=== PATIENT | female | born 1975 | race Hispanic/Latino ===

== ENCOUNTER 2017-12-21 20:06 | Observation (INO) | payer OTHER ==
--- OUTSIDE RECORDS SUMMARY | 2017-12-21 20:09 | XMS REPORT | Clinical Summary ---
:1975 Author Organization [facility] Address [address] [place] [address] Phone Care Team Providers Name Role Phone Unavailable Primary Care Provider Unavailable Allergies No Known Allergies Current Medications Prescription Sig. Disp. Refills Start End Date Status Date PARoxetine (PAXIL) Take 40 mg by Active 40 MG tablet mouth every morning. HYDROcodone-acetam Take 1 tablet by Active inophen (NORCO mouth every 6 7.5-325) 7.5-325 (six) hours as mg per tablet needed for Pain. ALPRAZolam (XANAX) Take 1 mg by mouth Active 1 MG tablet every night as needed for Anxiety. busPIRone (BUSPAR) Take 10 mg by Active 10 MG tablet mouth 3 (three) times daily. esomeprazole Take 40 mg by Active (NEXIUM) 40 MG mouth daily. capsule fenofibrate Take 48 mg by Active (TRICOR) 48 MG mouth daily. tablet levothyroxine Take 150 mcg by Active (SYNTHROID, mouth Every LEVOTHROID) 150 morning on an MCG tablet empty stomach. magnesium oxide Take 400 mg by Active (MAG-OX) 400 mg mouth daily. tablet prednisoLONE 1 drop as needed. Active acetate (PRED FORTE) 1 % ophthalmic suspension multivitamin Take 1 tablet by Active (MULTIVITAMIN) per mouth daily. tablet metoclopramide HCl Take 10 mg by Active (REGLAN) 10 MG mouth 4 (four) tablet times daily as needed for Nausea. erythromycin base Take 250 mg by Active (E-MYCIN) 250 MG mouth every 6 tablet (six) hours as needed. ergocalciferol Take 1 capsule 4 capsule 0 03/20/20 Active (ERGOCALCIFEROL) (50,000 Units 7 18 50,000 unit total) by mouth capsule every 7 days. insulin glargine Inject 50 Units 10 mL 0 Active (LANTUS) 100 subcutaneously 7 unit/mL injection every morning Use as directed . meloxicam (MOBIC) Take 15 mg by 03/20/20 Discontinued 15 MG tablet mouth daily. 17 atorvastatin Take 40 mg by 03/20/20 Discontinued (LIPITOR) 40 MG mouth daily. 17 tablet insulin glargine Inject 03/20/20 Discontinued (LANTUS) 100 subcutaneously 17 unit/mL injection daily before lunch Use as directed . losartan-hydroCHLO Take 1 tablet by 03/20/20 Discontinued ROthiazide mouth daily. 17 (HYZAAR) 50-12.5 mg per tablet ondansetron Take 4 mg by mouth 03/20/20 Discontinued (ZOFRAN) 4 MG every 6 (six) 17 tablet hours as needed for Nausea. potassium chloride Take 8 mEq by 03/20/20 Discontinued (KLOR-CON) 8 MEQ mouth daily. 17 CR tablet minocycline Take 100 mg by 03/20/20 Discontinued (MINOCIN,DYNACIN) mouth 2 (two) 17 100 MG capsule times daily. predniSONE Take 20 mg by 03/20/20 Discontinued (DELTASONE) 20 MG mouth daily. 17 tablet chlorthalidone Take 1 tablet (25 30 tablet 0 04/19/20 (HYGROTON) 25 MG mg total) by mouth 7 17 tablet daily for 30 days. spironolactone Take 1 tablet (25 30 tablet 0 04/19/20 (ALDACTONE) 25 MG mg total) by mouth 7 17 tablet daily for 30 days. aspirin 81 MG Take 1 tablet (81 30 tablet 0 04/19/20 chewable tablet mg total) by mouth 7 17 daily for 30 days. losartan (COZAAR) Take 1 tablet (100 30 tablet 0 04/19/20 100 MG tablet mg total) by mouth 7 17 daily for 30 days. atorvastatin Take 1 tablet (80 30 tablet 0 04/19/20 (LIPITOR) 80 MG mg total) by mouth 7 17 tablet nightly for 30 days. ondansetron Take 1 tablet (8 20 tablet 0 03/27/20 (ZOFRAN-ODT) 8 MG mg total) by mouth 7 17 disintegrating every 6 (six) tablet hours as needed for up to 7 days. loperamide Take 1 capsule (2 30 capsule 0 03/30/20 (IMODIUM) 2 mg mg total) by mouth 7 17 capsule 3 (three) times daily as needed for Diarrhea for up to 10 days. Active Problems Problem Noted Date Proteinuria 03/20/2017 Gastroparesis 03/19/2017 DELMA (acute kidney injury) ([facility]) 03/16/2017 Acute metabolic encephalopathy 03/16/2017 Cerebrovascular accident (CVA) due to embolism of left middle cerebral 2016 artery ([facility]) Hypothyroidism 03/15/2017 Diabetes mellitus ([facility]) 03/15/2017 Depression 03/15/2017 Anxiety 03/15/2017 GERD (gastroesophageal reflux disease) 03/15/2017 COPD (chronic obstructive pulmonary disease) ([facility]) 03/15/2017 Chronic renal disease 03/15/2017 Hyperlipidemia 03/15/2017 History of thyroid cancer 03/15/2017 Blind 03/15/2017 Tobacco abuse 03/15/2017 Diabetic retinopathy ([facility]) 03/15/2017 Diabetic nephropathy ([facility]) 03/15/2017 Resolved Problems Problem Noted Date Resolved Date Aphasia 03/14/2017 03/15/2017 Encounters Date Type Specialty Care Team Description 03/14/2017 - Hospital Encounter [facility] [place] Acute 03/20/2017 Medicine MD Dillon encephalopathy;Edison Adams Rahul ent cerebral MD Yady ischemia, unspecified Alessandro, type;DELMA (acute Albert Giovani, kidney injury) ([facility]);Cerebrovascular 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 ([facility]);Diabetic nephropathy associated with diabetes mellitus due to underlying condition ([facility]);Stable proliferative diabetic retinopathy associated with diabetes mellitus due to underlying condition, unspecified laterality ([facility]) after 12/20/2016 Family History Medical History Relation Name Comments Hypertension Father Diabetes Mother Kidney disease Mother Relation Name Status Comments Father Mother Social History Tobacco Use Types Packs/Day Years Used Date Current Every Day Smoker Sex Assigned at Date Recorded Not on file Last Filed Vital Signs Vital Sign Reading Time Taken Blood Pressure 109/52 03/20/2017 7:30 AM CDT Pulse 83 03/20/2017 7:30 AM CDT Temperature 36.2 C (97.1 F) 03/20/2017 7:30 AM CDT Respiratory Rate 19 03/20/2017 7:30 AM CDT Oxygen Saturation 98% 03/20/2017 7:30 AM CDT Inhaled Oxygen Concentration - - Weight 100 kg (220 lb 7.4 oz) 03/16/2017 6:00 AM CDT Height 162.6 cm (5' 4") 03/14/2017 6:00 PM CDT Body Mass Index 37.84 03/16/2017 6:00 AM CDT Plan of Treatment Not on file Results RHYTHM STRIP - SCAN (03/31/2017 1:10 PM)POC-Glucose meter (03/20/2017 7:22 AM) Only the most recent of17 resultswithin the time period is included. Component Value Ref Range POC-Glucose Meter 200 (H)Comment: TESTED AT [address] 70 - 110 mg/[place] [address] Specimen Performing Laboratory Blood [address] [address] Protein, random urine (03/19/2017 5:39 PM) Component Value Ref Range Protein, Urine 286 (H) 0 - 14 mg/dL Specimen Performing Laboratory Urine - Urine, Voided [address] [address] Creatinine, random urine (03/19/2017 5:39 PM)Only the most recent of2 resultswithin the time period is included. Component Value Ref Range Creatinine, Ur 29.3 mg/dL Specimen Performing Laboratory Urine - Urine, Voided [address] [address] Narrative Reference Range: No Normals ECG 12 lead (03/19/2017 3:16 PM) Specimen Performing Laboratory GE [facility]USE Narrative Ventricular Rate 81 BPM Atrial Rate 81 BPM P-R Interval 126 ms QRS Duration 76 ms Q-T Interval 408 ms QTC Calculation(Bazett) 473 ms P [place] 70 degrees R [place] -6 degrees T [place] 61 degrees Normal sinus rhythm Normal ECG No previous ECGs available Confirmed by MD PRIYA, JOHNSON ([id number]) on 03/20/2017 2:15:50 PM Procedure Note Interface, External Ris In - 03/20/2017 2:15 PM CDT Ventricular Rate 81 BPM Atrial Rate 81 BPM P-R Interval 126 ms QRS Duration 76 ms Q-T Interval 408 ms QTC Calculation(Bazett) 473 ms P [place] 70 degrees R [place] -6 degrees T [place] 61 degrees Normal sinus rhythm Normal ECG No previous ECGs available Confirmed by MD PRIYA, JOHNSON ([id number]) on 03/20/2017 2:15:50 PM 2D Echo W/Doppler(CW/PW/Color) (03/19/2017 12:40 PM) Component Value Ref Range Ejection Fraction LV EF 64.5 % (55-75) Index 31.6 %/m2 Specimen Performing Laboratory [facility] Echocardiography Laboratory [address] [place] [address] Voice:[phone] Transthoracic Echocardiogram Pat.Name:ARCHANA WOO Pat.ID:[id number] St.Date: 03/19/2017 Refer.MD:JOSE ADAMS Exam Time: 12:40:00 PM Study Type:Echo Complete Height:64inWeight: 220lb BSA: 2.04 m2 DOBAge:1975,41Y Sex: FEMALEBP:170/74 HR:81 bpmSonogrphr: Erika Wheatley [facility] Pat. Stat.:Inpatient Room:224 Reason for Study:Suspected Cardiac Source of Emboli History / Clinical:COPD, Diabetes, Hyperlipidemia, Hypertension, Stroke/TIA, Thyroid disease, HX THYROID CA Procedures:2D ECHO W/ DOPPLER (CW/PW/COLOR), M-mode, 2D, Doppler, Color Flow SUMMARY: Regular sinus rhythm during the exam. Left ventricular chamber size (by vol index) is normal (female - LVED vol -29-61 ml/m2). No evidence of LV hypertrophy. All of the LV segments contract normally. LVEF by quantitative assessment is normal (> 60%). The right ventricular chamber size and systolic function are within normal limits. Unable to estimate peak systolic PA pressure; inadequate TR velocity signal. No significant pericardial effusion is visualized. FINDINGS: Rhythm/BP: Regular sinus rhythm during the exam. LV: All of the LV segments contract normally. Left ventricular chambersize (by vol index) is normal (female - LVED vol - 29-61ml/m2). No evidence of LV hypertrophy. LVEF by quantitativeassessment is normal (> 60%). Degree (grade ) ofdiastolic dysfunction is indeterminate. LA: LA size is normal. RV: The right ventricular chamber size and systolic function are withinnormal limits. RA: RA cavity size is normal. AV: Normal AoV structure and function. MV: Normal MV structure and function. TV: TV structure is normal. Unable to estimate peak systolic PA pressure;inadequate TR velocity signal. PV: PV is not well visualized. AO: Aortic root size (Sinus of Valsalva diameter) is normal. Pericard: No significant pericardial effusion is visualized. Systemic Veins: The inferior vena cava is not well visualized. Comparison: No prior exam available for comparison. Quality:Technically adequate exam. MEASUREMENTS: 2D LV EF SinglePlane LV Ad 28.6 cm2(9.5-22.3)* LV CO 4.22 l/min LV As 15.6 cm2(4-11.6)* LV CI 2.07 l/min/m2 LVEDV 80.7 ml (59-136) Index39.5 ml/m2 LV SV 52.1 ml LVESV 28.6 mlHR81 bpm Left Ventricle LV A% 45.6 %(36-64) LA Sng Plane LA Vol38.4 mlIndex 18.8 ml/m2 LA Area 15 cm2(8.8-23.4) Parasternal Long [place] Ao An 1.98 cm (1.4-2.6) LV%fs 42.5 %(25-46) Ao Rtd2.62 cmLVPWd0.839 cm IVSd1.05 cm LA Ds 3.71 cm (2.3-3.8) LVIDd 3.69 cm (4.3-5.1)* LV Wmn 0.946 cm LVIDs 2.12 cm (2-4) DOPPLER Stroke Vol & Cardiac Out HR78 bpmSV 67.4 ml guanako 2 cm CO 5.26 l/min VTI21.5 cm CI 2.58 l/min/m2 Signed 03/19/2017 04:05 PM Baldomero Wagner M.D. Procedure Note Interface, External Ris In - 03/19/2017 4:06 PM CDT Echocardiography Laboratory [address] [place] [address] Voice: [phone] Transthoracic Echocardiogram Pat.Name: ARCHANA WOO Pat.ID: [id number] .Date: 03/19/2017 Refer.MD: JOSE ADAMS Exam Time: 12:40:00 PM Study Type:Echo Complete Height: 64in Weight: 220lb BSA: 2.04 m2 Age: 2 1975,41Y Sex: FEMALE BP: 170/74 HR: 81 bpm Sonogrphr: Erika Wheatley [facility] Pat. Stat.:Inpatient Room: [facility] Reason for Study:Suspected Cardiac Source of Emboli History / Clinical:COPD, Diabetes, Hyperlipidemia, Hypertension, Stroke/TIA, Thyroid disease, HX THYROID CA Procedures:2D ECHO W/ DOPPLER (CW/PW/COLOR), M-mode, 2D, Doppler, Color Flow SUMMARY: Regular sinus rhythm during the exam. Left ventricular chamber size (by vol index) is normal (female - LVED vol - 29-61 ml/m2). No evidence of LV hypertrophy. All of the LV segments contract normally. LVEF by quantitative assessment is normal (> 60%). The right ventricular chamber size and systolic function are within normal limits. Unable to estimate peak systolic PA pressure; inadequate TR velocity signal. No significant pericardial effusion is visualized. FINDINGS: Rhythm/BP: Regular sinus rhythm during the exam. LV: All of the LV segments contract normally. Left ventricular chamber size (by vol index) is normal (female - LVED vol - 29-61 ml/m2). No evidence of LV hypertrophy. LVEF by quantitative assessment is normal (> 60%). Degree (grade) of diastolic dysfunction is indeterminate. LA: LA size is normal. RV: The right ventricular chamber size and systolic function are within normal limits. RA: RA cavity size is normal. AV: Normal AoV structure and function. MV: Normal MV structure and function. TV: TV structure is normal. Unable to estimate peak systolic PA pressure; inadequate TR velocity signal. PV: PV is not well visualized. AO: Aortic root size (Sinus of Valsalva diameter) is normal. Pericard: No significant pericardial effusion is visualized. Systemic Veins: The inferior vena cava is not well visualized. Comparison: No prior exam available for comparison. Quality: Technically adequate exam. MEASUREMENTS: 2D LV EF SinglePlane LV Ad 28.6 cm2 (9.5-22.3)* LV CO 4.22 l/min LV As 15.6 cm2 (4-11.6)* LV CI 2.07 l/min/m2 LVEDV 80.7 ml (59-136) Index 39.5 ml/m2 LV SV 52.1 ml LVESV 28.6 ml HR 81 bpm Left Ventricle LV A% 45.6 % (36-64) LA Sng Plane LA Vol 38.4 ml Index 18.8 ml/m2 LA Area 15 cm2 (8.8-23.4) Parasternal Long [place] Ao An 1.98 cm (1.4-2.6) LV%fs 42.5 % (25-46) Ao Rtd 2.62 cm LVPWd 0.839 cm IVSd 1.05 cm LA Ds 3.71 cm (2.3-3.8) LVIDd 3.69 cm (4.3-5.1)* LV Wmn 0.946 cm LVIDs 2.12 cm (2-4) DOPPLER Stroke Vol & Cardiac Out HR 78 bpm SV 67.4 ml guanako 2 cm CO 5.26 l/min VTI 21.5 cm CI 2.58 l/min/m2 Signed 03/19/2017 04:05 PM Baldomero Wagner M.D. CBC with platelet count + automated diff (03/19/2017 4:56 AM)Only the most recent of5 resultswithin the time period is included. Component Value Ref Range WBC 9.4 3.5 - 10.5 K/L RBC 4.16 3.93 - 5.22 M/L Hemoglobin 12.7 11.2 - 15.7 GM/DL Hematocrit 38.0 34.1 - 44.9 % MCV 91.3 79.4 - 94.8 fL MCH 30.5 25.6 - 32.2 pg MCHC 33.4 32.2 - 35.5 GM/DL RDW 12.6 11.7 - 14.4 % Platelets 329 150 - 450 K/CU MM MPV 10.0 9.4 - 12.3 fL nRBC 0 0 - 0 /100 WBC % Neutros 68 % % Lymphs 23 % % Monos 7 % % Eos 1 % % Baso 1 % # Neutros 6.35 (H) 1.56 - 6.13 K/L # Lymphs 2.16 1.18 - 3.74 K/L # Monos 0.68 (H) 0.24 - 0.36 K/L # Eos 0.10 0.04 - 0.36 K/L # Baso 0.06 0.01 - 0.08 K/L Immature Granulocytes-Relative 0 0 - 1 % Specimen Performing Laboratory Blood [facility] [address] [address] Vitamin D, 25-Hydroxy (03/19/2017 4:56 AM) Component Value Ref Range Vitamin D 25-Hydroxy <13.0 (L) 13.0 - 47.8 ng/mL Specimen Performing Laboratory Blood [address] [address] CBC with platelet count + automated diff (03/19/2017 4:56 AM)Only the most recent of5 resultswithin the time period is included. Specimen Performing Laboratory Blood Narrative The following orders were created for panel order CBC with platelet count + automated diff. Procedure Abnormality Status --------- ------ CBC with platelet count ...[[id number]]AbnormalFinal result Please view results for these tests on the individual orders. Phosphorus (03/19/2017 4:56 AM) Component Value Ref Range Phosphorus 4.1 2.3 - 4.7 mg/dL Specimen Performing Laboratory Blood [address] [address] PTH, intact (03/19/2017 4:56 AM) Component Value Ref Range PTH 57.2 8.5 - 72.5 pg/mL Specimen Performing Laboratory Blood [address] [address] Narrative Effective 07/04/2014: Reference Range Change New: 8.5-72.5 Previous: 15.0-90.0 Magnesium (03/19/2017 4:56 AM) Component Value Ref Range Magnesium 1.7 1.6 - 2.6 mg/dL Specimen Performing Laboratory Blood [address] [address] Basic Metabolic Panel (03/19/2017 4:56 AM)Only the most recent of5 resultswithin the time period is included. Component Value Ref Range Sodium 135 (L) 136 - 145 meq/L Potassium 4.1 3.5 - 5.1 meq/L Chloride 102 98 - 107 meq/L CO2 25 22 - 29 meq/L BUN 12 7 - 21 mg/dL Creatinine 1.99 (H) 0.57 - 1.25 mg/dL Glucose 290 (H) 70 - 105 mg/dL Calcium 8.7 8.4 - 10.2 mg/dL EGFR 27Comment: ESTIMATED GFR IS NOT ACCURATE mL/min/1.73 sq m CREATININE CLEARANCE IN PREDICTING GLOMERULAR FILTRATION RATE. ESTIMATED GFR IS NOT APPLICABLE FOR DIALYSIS PATIENTS. Specimen Performing Laboratory Blood [facility] [address] [place] [address] MRA neck without IV contrast (03/18/2017 9:10 PM) Specimen Performing Laboratory GE RIS Narrative FINAL REPORT MRA Head CLINICAL HISTORY: acute stroke Episode of Care: Initial TECHNIQUE: MRA of the head utilizing 3-D thft-pb-rhixtl technique, with 3-D reconstructions. COMPARISON: None FINDINGS: There is no evidence for a [place] proximal branch vessel occlusion. There is moderate stenosis of the right internal carotid artery siphon. There are bilateral posterior communicating arteries. IMPRESSION: No evidence for a major [place] proximal branch vessel occlusion. MRA Neck CLINICAL HISTORY: acute stroke Episode of Care: Initial TECHNIQUE: MRA of the neck utilizing 2-D and 3-D shuh-le-cqtfqh technique, with 3-D reconstructions. COMPARISON: None FINDINGS: The carotid arteries in the neck are patent including their bifurcations. There is antegrade flow in the vertebral arteries in the neck. IMPRESSION: No evidence of hemodynamically significant stenosis in the cervical carotid or vertebral arteries by NASCET criteria. Signed: Marychuy Bueno MD Report Verified Date/Time:03/18/2017 21:14:56 Reading Location: [facility] Radiology Reading Room Procedure Note Interface, External Ris In - 03/19/2017 6:01 AM CDT FINAL REPORT MRA Head CLINICAL HISTORY: acute stroke Episode of Care: Initial TECHNIQUE: MRA of the head utilizing 3-D obet-pa-dvjqur technique, with 3-D reconstructions. COMPARISON: None FINDINGS: There is no evidence for a [place] proximal branch vessel occlusion. There is moderate stenosis of the right internal carotid artery siphon. There are bilateral posterior communicating arteries. IMPRESSION: No evidence for a major [place] proximal branch vessel occlusion. MRA Neck CLINICAL HISTORY: acute stroke Episode of Care: Initial TECHNIQUE: MRA of the neck utilizing 2-D and 3-D kfhz-lb-gzrjvs technique, with 3-D reconstructions. COMPARISON: None FINDINGS: The carotid arteries in the neck are patent including their bifurcations. There is antegrade flow in the vertebral arteries in the neck. IMPRESSION: No evidence of hemodynamically significant stenosis in the cervical carotid or vertebral arteries by NASCET criteria. Signed: Marychuy Bueno MD Report Verified Date/Time: 03/18/2017 21:14:56 Reading Location: [facility] Radiology Reading Room head without IV contrast (03/18/2017 9:10 PM) Specimen Performing Laboratory GE RIS Narrative FINAL REPORT MRA Head CLINICAL HISTORY: acute stroke Episode of Care: Initial TECHNIQUE: MRA of the head utilizing 3-D cybp-ge-rmcpdt technique, with 3-D reconstructions. COMPARISON: None FINDINGS: There is no evidence for a [place] proximal branch vessel occlusion. There is moderate stenosis of the right internal carotid artery siphon. There are bilateral posterior communicating arteries. IMPRESSION: No evidence for a major [place] proximal branch vessel occlusion. MRA Neck CLINICAL HISTORY: acute stroke Episode of Care: Initial TECHNIQUE: MRA of the neck utilizing 2-D and 3-D jvmp-jr-hsxvtl technique, with 3-D reconstructions. COMPARISON: None FINDINGS: The carotid arteries in the neck are patent including their bifurcations. There is antegrade flow in the vertebral arteries in the neck. IMPRESSION: No evidence of hemodynamically significant stenosis in the cervical carotid or vertebral arteries by NASCET criteria. Signed: Marychuy Bueno MD Report Verified Date/Time:03/18/2017 21:14:56 Reading Location: [facility] Radiology Reading Room Procedure Note Interface, External Ris In - 03/19/2017 6:01 AM CDT FINAL REPORT MRA Head CLINICAL HISTORY: acute stroke Episode of Care: Initial TECHNIQUE: MRA of the head utilizing 3-D pkym-ur-ouawwd technique, with 3-D reconstructions. COMPARISON: None FINDINGS: There is no evidence for a [place] proximal branch vessel occlusion. There is moderate stenosis of the right internal carotid artery siphon. There are bilateral posterior communicating arteries. IMPRESSION: No evidence for a major [place] proximal branch vessel occlusion. MRA Neck CLINICAL HISTORY: acute stroke Episode of Care: Initial TECHNIQUE: MRA of the neck utilizing 2-D and 3-D swdm-sc-wyujqs technique, with 3-D reconstructions. COMPARISON: None FINDINGS: The carotid arteries in the neck are patent including their bifurcations. There is antegrade flow in the vertebral arteries in the neck. IMPRESSION: No evidence of hemodynamically significant stenosis in the cervical carotid or vertebral arteries by NASCET criteria. Signed: Marychuy Bueno MD Report Verified Date/Time: 03/18/2017 21:14:56 Reading Location: [facility] Radiology Reading Room renal complete (03/18/2017 5:46 AM) Specimen Performing Laboratory [employer] [facility] Narrative FINAL REPORT Ultrasound of the Kidneys Clinical History:delma Discussion: Sonographic evaluation of the kidneys is performed. Right kidney:10.6 x 6.2 x 5.1 cm, with cortical thickness of 1.1 cm.Borderline elevated cortical echogenicity.No mass.No shadowing calculus. No hydronephrosis. Left kidney: 11.2 x 5.8 x 4.7 cm, with cortical thickness of 1.0 cm. Borderline elevated cortical echogenicity.No mass.No shadowing calculus.No hydronephrosis. Limited doppler evaluation of bilateral main renal arteries and veins demonstrate patency. Bladder:Unremarkable. Impression: Borderline elevated cortical echogenicity of both kidneys, a nonspecific finding that may indicate medical renal disease. No hydronephrosis. Signed: Guanako Tyler MD Report Verified Date/Time:03/18/2017 09:00:51 Reading Location: [facility] P006 Ultrasound Reading Room Procedure Note Interface, External Ris In - 03/18/2017 9:03 AM CDT FINAL REPORT Ultrasound of the Kidneys Clinical History: delma Discussion: Sonographic evaluation of the kidneys is performed. Right kidney: 10.6 x 6.2 x 5.1 cm, with cortical thickness of 1.1 cm. Borderline elevated cortical echogenicity. No mass. No shadowing calculus. No hydronephrosis. Left kidney: 11.2 x 5.8 x 4.7 cm, with cortical thickness of 1.0 cm. Borderline elevated cortical echogenicity. No mass. No shadowing calculus. No hydronephrosis. Limited doppler evaluation of bilateral main renal arteries and veins demonstrate patency. Bladder: Unremarkable. Impression: Borderline elevated cortical echogenicity of both kidneys, a nonspecific finding that may indicate medical renal disease. No hydronephrosis. Signed: Guanako Tyler MD Report Verified Date/Time: 03/18/2017 09:00:51 Reading Location: [facility] [id number] Ultrasound Reading Room Hexagonal Phospholipid (03/18/2017 4:21 AM) Component Value Ref Range Hexagonal Phospholipid Negative Specimen Performing Laboratory Blood [facility] [address] [address] BETA2 GLYCOPROTE I AB,IGM (03/18/2017 4:21 AM) Component Value Ref Range B2-Glycoprotein Igm <9 < OR=20 [facility] Specimen Performing Laboratory Blood [facility] DI[facility]NOST[facility] [employer] [address] [address] Narrative Performing Lab [facility] [address] [address] Asuncion Reddy MD BETA2 GLYCOPROTE I AB,IGA (03/18/2017 4:21 AM) Component Value Ref Range B2-Glycoprotein I (IgA) Ab <9 < OR=20 [facility] Comment: Clinical Significance: The Antiphospholipid Antibody Syndrome (APS) is a clinical pathologic correlation that includes a clinical event (e.g. thrombosis, loss, thrombocytopenia) and persistent positive Antiphospholipid Antibodies (IgM or IgG WILLIAM >40 MPL/GPL, IgM or IgG anti-B2GP1 antibodies, or a Lupus Anticoagulant). The IgA isotype has been implicated in smaller studies, but have not yet been incorporated into the APS criteria. International consensus guidelines suggest waiting at least 12 weeks before retesting to confirm antibody persistence. Reference J Thromb Haemost 2006: 4; 295. For more information on this test, go to: http://avVenta.Opargo/faq/MRW053 Specimen Performing Laboratory Blood neo[facility]urgical DIAGNOSTIC [employer] [address] [address] Narrative Performing Lab [facility] [address] [address] Asuncion Reddy MD BETA2 GLYCOPROTE I AB,IGG (03/18/2017 4:21 AM) Component Value Ref Range B2-Glycoprotein I (IgG) Ab <9 < OR=20 SGU Specimen Performing Laboratory Blood [facility] [address] [address] Narrative Performing Lab [facility] [address] [address] Asuncion Reddy MD Phosphatidylserine Abs (IgG, IgM) (03/18/2017 4:21 AM) Component Value Ref Range Phos.Serine Ab IgG <10 U/mL Comment: <10 Negative 10-20Equivocal- Found in small percentage of the healthy population; may be reactive >20 Positive - Risk factor for thrombosis and loss PHOSPHATIDYLSERINE AB (IGM) <25 U/mL Comment: Clinical Significance: The Antiphospholipid Antibody Syndrome (APS) is a clinical pathologic correlation that includes a clinical event (e.g. thrombosis, loss, thrombocytopenia) and persistent positive Antiphospholipid Antibodies (IgM or IgG WILLIAM >40 MPL/GPL, IgM or IgG anti-B2GP1 antibodies, or a Lupus Anticoagulant). The IgA isotype has been implicated in smaller studies, but have not yet been incorporated into the APS criteria. International consensus guidelines suggest waiting at least 12 weeks before retesting to confirm antibody persistence. Reference J Thromb Haemost 2006: 4; 295. <25 Negative 25-35Equivocal- Found in small percentage of the healthy population; may be reactive >35 Positive - Risk factor for thrombosis and loss For more information on this test, go to: http://education.[employer]/faq/PNM536 Specimen Performing Laboratory Blood [facility] [address] [address] Narrative Performing Lab [facility] [address] [address] Asuncion Reddy MD Beta-2 glycoprotein antibodies (03/18/2017 4:21 AM) Component Value Ref Range B2 Glcoprotein Ab Profile Refer to individual B2-Glycoprotein IgG, IgM and IgA results. Specimen Performing Laboratory Blood [facility] [address] [address] Protein S activity (03/18/2017 4:21 AM) Component Value Ref Range Protein S Functional 95 60 - 140 % normal Comment: Decreased levels of Protein S activity may be found in patients with hereditary deficiency, warfarin therapy, vitamin k deficiency, liver disease , DIC, or recent thrombosis as well as after surgery. In addition, it may be physiologic in . An elevated Protein S activity is not clinically significant. Only deficiencies are associated with an increased thrombotic risk. Specimen Performing Laboratory Blood [facility] [address] [place] [address] Narrative Performing Lab [facility] [address] [place] [address] Asuncion Reddy MD Protein C activity (03/18/2017 4:21 AM) Component Value Ref Range Protein C Activity 155.0 (H) 70.0 - 130.0 % Specimen [place] [address] Narrative Effective 12/20/2013: Reference Range Change-Adult only New: 70.0-130.0 Previous: 70.0-140.0 See Protein C Antigen. Cardiolipin Antibodies, IgG and IgM (03/18/2017 4:21 AM) Component Value Ref Range Anticardiolipin IgG <1.6 GPL Anticardiolipin IgM 2.8 MPL Specimen [place] [address] Narrative Anticardiolipin IgG Result Interpretation: NEG:<20 GPL;U/ml POS:>/=20 GPL;U/ml Anticardiolipin IgM Result Interpretation: NEG:<20 MPL;U/ml POS:>/=20 MPL;U/ml Factor 5 Leiden PCR (thrombotic risk) (03/18/2017 4:21 AM) Component Value Ref Range Factor V Leiden Negative for the R506Q (Factor V Leiden) mutation Pathologist: Martínez Wang MD (electronic signature) Specimen [place] [address] Narrative This test is a genotyping assay which evaluates the DNA sequence corresponding to Codon 506 of the Factor V Gene. A region of the Factor V Gene is amplified by polymerase chain reaction followed by fluorescent monitoring of a specific pair of hybridized probes. Since genetic variation and other factors can affect the accuracy of direct mutation testing, these results should be interpreted in light of clinical and familial data. This test was developed and its performance characteristics determined by the [facility] Pathology Department, Section of Molecular Pathology. It has not been cleared or approved by the U.S. Food and Drug Administration (FDA) , since FDA approval is not required for clinical use of the test. Validation was done as required by the Clinical Laboratory Improvement Amendments of 1988. Dilute Chuy Viper Venom (DRVV) (03/18/2017 4:21 AM) Component Value Ref Range Protime 11.3 (L) 11.7 - 14.7 seconds INR 0.8 <=5.9 PTT 28.0 22.5 - 36.0 seconds Interpretations Normal DRVV Results Normal Hexagonal Phospholipid Pathologist: Martínez Wang MD (electronic signature) DRVV Screen Ratio 0.84 <1.20 Specimen [place] [address] Narrative Effective 12/20/2013: Test Method Change DRVV Screen Ratio, DRVV 1/1 Screen Ratio, DRVV Confirm Ratio, DRVV Normalized Ratio Reference Range: <1.2 Protime Reference Range Change New: 11.7-14.7Previous: 9.8-12.0 PTT Reference Range Change New: 22.5-36.0Previous: 25.8-34.5 Antithrombin III (03/18/2017 4:21 AM) Component Value Ref Range Antithrombin III 87.0 80.0 - 120.0 % Specimen Performing Laboratory Blood [address] [address] Narrative Effective 12/20/2013: Reference Range Change-Adult only New: 80.0-120.0 Previous: 90.0-128.0 Anti-Nuclear Antibody (MARY) (03/18/2017 4:21 AM) Component Value Ref Range MARY Negative Negative Specimen Performing Laboratory Blood [address] [address] Microalbumin, random urine (03/17/2017 4:51 PM) Component Value Ref Range Microalbumin, Urine >200.0 mg/dL Specimen Performing Laboratory Urine - Urine, Voided [address] [address] Narrative Reference Range: No Normals Sodium, random urine (03/17/2017 4:51 PM) Component Value Ref Range Sodium Urine 63 meq/L Specimen Performing Laboratory Urine - Urine, Voided [address] [address] Narrative Reference Range: No Normals Screen, urine (03/17/2017 4:51 PM) Component Value Ref Range Preg Test, Ur Negative Specimen Performing Laboratory Urine - Urine, Voided [address] [address] Urinalysis w/Microscopic (03/17/2017 4:51 PM) Component Value Ref Range Color, UA Light Yellow Clarity, UA Clear Specific [place], UA 1.005 1.001 - 1.035 pH, UA 7.0 5.0 - 8.0 Protein, UA 300 mg/dL (A) Negative Glucose, UA 30 mg/dL (A) Negative Ketones, UA Negative Negative Bilirubin, UA Negative Negative Blood, UA Negative Negative Nitrite, UA Negative Negative Leukocytes, UA Negative Negative Urobilinogen, UA 0.2 0.2 - 1.0 mg/dL RBC, UA 1 /HPF WBC, UA <1 /HPF Bacteria, UA Rare Squam Epithel, UA 1 /HPF Specimen Source Urine, Voided Specimen Performing Laboratory Urine - Urine, Void[address] [address] Urine culture (03/17/2017 4:51 PM) Component Value Ref Range Result 20-29,000 col/mL skin lei Specimen Performing Laboratory Urine - Urine, Voided [address] [address] MR brain without IV contrast (03/17/2017 3:32 PM) Specimen Performing Laboratory [employer] Narrative FINAL REPORT MRI Brain without contrast Clinical History: Alteration in speech- stuttering, weakness in the bilateral extremities Technique: MRI of the brain utilizing axial T2, FLAIR, GRE, DWI; sagittal and coronal T1-weighted images. Comparisons: Portable head CT 03/15/2017 Findings: There are acute infarcts of the bilateral thalamocapsular junctions. 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 There is no hemorrhage. There is a chronic white matter infarct of the right-sided finley radiata. There is periventricular and subcortical white matter T2 hyperintensity, which is nonspecific but compatible with chronic microvascular ischemic change, including in the luiz. There is mild generalized sulcal prominence without hydrocephalus, midline shift, or apparent mass effect. There are no extra-axial fluid collections. The craniocervical junction is preserved. The major intracranial flow-voids appear patent. 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 IMPRESSION: Small acute infarcts involving the bilateral thalamocapsular junctions. No hemorrhage. Other chronic ischemic changes, greater than expected for age. Clinical correlation to cardiovascular risk factors is recommended. Signed: Marychuy Bueno MD Report Verified Date/Time:03/17/2017 15:33:57 Reading Location: [facility] Reading Room Procedure Note Interface, External Ris In - 03/17/2017 3:36 PM CDT FINAL REPORT MRI Brain without contrast Clinical History: Alteration in speech- stuttering, weakness in the bilateral extremities Technique: MRI of the brain utilizing axial T2, FLAIR, GRE, DWI; sagittal and coronal T1-weighted images. Comparisons: Portable head CT 03/15/2017 Findings: There are acute infarcts of the bilateral thalamocapsular junctions. 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 There is no hemorrhage. There is a chronic white matter infarct of the right-sided finley radiata. There is periventricular and subcortical white matter T2 hyperintensity, which is nonspecific but compatible with chronic microvascular ischemic change, including in the luiz. There is mild generalized sulcal prominence without hydrocephalus, midline shift, or apparent mass effect. There are no extra-axial fluid collections. The craniocervical junction is preserved. The major intracranial flow-voids appear patent. 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 IMPRESSION: Small acute infarcts involving the bilateral thalamocapsular junctions. No hemorrhage. Other chronic ischemic changes, greater than expected for age. Clinical correlation to cardiovascular risk factors is recommended. Signed: Marychuy Bueno MD Report Verified Date/Time: 03/17/2017 15:33:57 Reading Location: [facility] Reading Room Manual Differential (03/15/2017 7:54 AM) Component Value Ref Range Total Counted WBC Morphology Normal Platelet Morphology Normal RBC Morphology Normal Specimen Performing Laboratory Blood - Arm, [address] [address] TSH/Free T4 If Indicated (03/15/2017 7:54 AM) Component Value Ref Range TSH 1.08 0.35 - 4.94 uIU/mL Specimen Performing Laboratory Blood - Arm, [address] [address] RPR (03/15/2017 7:54 AM) Component Value Ref Range RPR Nonreactive Nonreactive Specimen Performing Laboratory Blood - Arm, [address] [address] Sedimentation rate (03/15/2017 7:54 AM) Component Value Ref Range Sed Rate 79 (H) 0 - 20 mm/HR Specimen Performing Laboratory Blood - Arm, [address] [address] Hemoglobin A1c (03/15/2017 7:54 AM) Component Value Ref Range Hemoglobin A1C 9.8 (H) 4.3 - 6.1 % Specimen Performing Laboratory Blood - Arm, [address] [address] Vitamin B12 (03/15/2017 7:54 AM) Component Value Ref Range Vitamin B12 1790 (H) 213 - 816 pg/mL Specimen Performing Laboratory Blood - Arm, [address] [address] Fasting lipid panel (03/15/2017 7:54 AM) Component Value Ref Range Triglycerides 90 mg/dL Cholesterol 143 mg/dL HDL 44 mg/dL LDL Calculated 81 mg/dL Specimen Performing Laboratory Blood - Arm, [address] [address] Narrative Triglyceride Reference Range: Low Risk <150 [id number] High Risk 200-499 Very High Risk>=500 Cholesterol Reference Range: Low Risk <200 [id number] High Risk>240 HDL Cholesterol Reference Range: Low Risk >=60 High Risk <40 LDL Cholesterol Reference Range: Optimal<100 Near [id number] [id number] [id number] Very High >=[address] brain without IV contrast portable (03/15/2017 3:41 AM) Specimen Performing Laboratory [facility] Narrative FINAL REPORT Clinical history : New changes in speech and worsening left-sided weakness Comparison study: None Technique: Contiguous axial images were obtained of the brain without intravenous contrast. This exam was performed according to our departmental dose optimization program, which includes automated exposure control, adjustment of the mA and/or kV according to the patient's size and/or use of the iterative reconstruction technique. FINDINGS: Limited diagnostic quality portable CT scan which is is degraded by motion artifact. Nonspecific periventricular and subcortical white matter changes suggestive of chronic microangiopathy. No hydrocephalus, mass, midline shift, cisternal effacement, intraparenchymal hemorrhage, or extra axial fluid collection. No acute infarction is identified. Atherosclerotic calcifications of the intracranial circulation. The visualizedparanasal sinuses and tympanomastoid cavities are well pneumatized. Bilateral Phthisis bulbi. Normal skull base and calvarium. Impression: No gross abnormalities. Limited diagnostic quality portable CT scan which is is degraded by motion artifact. Signed: Chacorta Reilly MD Report Verified Date/Time:03/15/2017 03:47:01 Reading Location: [address] Ortho Consult Reading Room Procedure Note Interface, External Ris In - 03/15/2017 3:49 AM CDT FINAL REPORT Clinical history : New changes in speech and worsening left-sided weakness Comparison study: None Technique: Contiguous axial images were obtained of the brain without intravenous contrast. This exam was performed according to our departmental dose optimization program, which includes automated exposure control, adjustment of the mA and/or kV according to the patient's size and/or use of the iterative reconstruction technique. FINDINGS: Limited diagnostic quality portable CT scan which is is degraded by motion artifact. Nonspecific periventricular and subcortical white matter changes suggestive of chronic microangiopathy. No hydrocephalus, mass, midline shift, cisternal effacement, intraparenchymal hemorrhage, or extra axial fluid collection. No acute infarction is identified. Atherosclerotic calcifications of the intracranial circulation. The visualized paranasal sinuses and tympanomastoid cavities are well pneumatized. Bilateral Phthisis bulbi. Normal skull base and calvarium. Impression: No gross abnormalities. Limited diagnostic quality portable CT scan which is is degraded by motion artifact. Signed: Chacorta Reilly MD Report Verified Date/Time: 03/15/2017 03:47:01 Reading Location: [facility] [id number] Ortho Consult Reading Room hCG, quantitative, (03/15/2017 12:22 AM) Component Value Ref Range hCG Quant <1 0 - 10 mIU/mL Specimen Performing [place] [address] Narrative Non- Females: <10 mIU/mL Females: Gestation AgeReference Range(mIU/mL) 0.2-1 Week5-50 1-2 [id number] 2-3 Weeks 100-5,000 3-4 Weeks 500-10,000 4-5 Weeks 1,000-50,000 5-6 Weeks10,000-100,000 6-8 Weeks15,000-200,000 2-3 Months 10,000-100,000 EEG AWAKE AND DROWSY (03/14/2017 11:25 PM) Specimen Performing Laboratory [facility] Narrative DATE OF REPORT: 03/14/17 ACC: [id number] Start time: 23:04 Stop time: 23:25 ICD-10: R56.9 CPT Code: HISTORY: 41 year-old female with reported aphasia, weakness and seizure-like activity. MEDICATIONS THAT COULD AFFECT EEG: none reported TECHNICAL SUMMARY: This is a digital EEG performed using disc electrodes placed according to the International 10-20 system of electrode placement and reviewed with bipolar and referential montages. DESCRIPTION OF RECORD: During the maximally awake state, there is a 6.5-7Hz posterior dominant rhythm. More anteriorly, similar as well as faster frequencies are present, including low voltage 18-22Hz activity in the anterior leads. Much myogenic artifact is present during the recording due to frequent crying. Drowsiness and sleep states were not achieved. HV: Hyperventilation was not performed. PHOTIC STIMULATION: Flash stimulation was not performed. IMPRESSION: Abnormal 1. Mild background slow, including slow posterior dominant rhythm CLINICAL CORRELATION: This EEG is consistent with a mild encephalopathy, which may be due to toxic, metabolic, drug-induced or other etiology. There are no definite focal or epileptiform features. No seizures occurred. Reina Clarke MD Epilepsy Fellow Isabella Epstein MD Epilepsy Attending Procedure Note Interface, External Ris In - 03/14/2017 11:57 PM CDT DATE OF REPORT: 03/14/17 ACC: [id number] Start time: 23:04 Stop time: 23:25 ICD-10: R56.9 CPT Code: HISTORY: 41 year-old female with reported aphasia, weakness and seizure-like activity. MEDICATIONS THAT COULD AFFECT EEG: none reported TECHNICAL SUMMARY: This is a digital EEG performed using disc electrodes placed according to the International 10-20 system of electrode placement and reviewed with bipolar and referential montages. DESCRIPTION OF RECORD: During the maximally awake state, there is a 6.5-7Hz posterior dominant rhythm. More anteriorly, similar as well as faster frequencies are present, including low voltage 18-22Hz activity in the anterior leads. Much myogenic artifact is present during the recording due to frequent crying. Drowsiness and sleep states were not achieved. HV: Hyperventilation was not performed. PHOTIC STIMULATION: Flash stimulation was not performed. IMPRESSION: Abnormal 1. Mild background slow, including slow posterior dominant rhythm CLINICAL CORRELATION: This EEG is consistent with a mild encephalopathy, which may be due to toxic, metabolic, drug-induced or other etiology. There are no definite focal or epileptiform features. No seizures occurred. Reina Clarke MD Epilepsy Fellow Isabella Epstein MD Epilepsy Attending Comprehensive metabolic panel (03/14/2017 9:31 PM) Component Value Ref Range Protein, Total 5.0 (L) 6.0 - 8.3 gm/dL Albumin 2.1 (L) 3.5 - 5.0 g/dL Alkaline Phosphatase 106 40 - 150 U/L Total Bilirubin 0.2 0.2 - 1.2 mg/dL Sodium 137 136 - 145 meq/L Potassium 4.7 3.5 - 5.1 meq/L Chloride 106 98 - 107 meq/L CO2 25 22 - 29 meq/L BUN 21 7 - 21 mg/dL Creatinine 2.00 (H) 0.57 - 1.25 mg/dL Glucose 285 (H) 70 - 105 mg/dL Calcium 7.9 (L) 8.4 - 10.2 mg/dL AST 16 5 - 34 U/L ALT 14 6 - 55 U/L EGFR Comment: INSUFFICIENT CLINICAL DATA TO mL/min/1.73 sq m CALCULATE ESTIMATED GFR. Specimen Performing Laboratory Blood [facility] [address] [address] Narrative Unit Collect after 12/20/2016
--- OUTSIDE RECORDS SUMMARY | 2017-12-21 20:09 | XMS REPORT ---
:1975 [facility] Address [address] [place] [address] Dr. Soto [address] [place] [id number] Care Team Providers Name Role Phone ARON EDWARDS Unavailable Unavailable Problems This patient has no known problems. Allergies, Adverse Reactions, Alerts This patient has no known allergies or adverse reactions. Medications This patient has no known medications. Results Test Description Test Time Test Comments Text Results Atomic Results Result Comments FACTOR 5 LEIDEN PCR (THROMBOTIC RISK) 2017-03-24 19:24:00 Test Item Value Reference Range Comments FACTOR V LEIDEN (BEAKER) (test eyqy=173) Negative for the R506Q (Factor V Leiden) mutation [id number] (BEAKER) (test Martínez Wang MD (electronic signature) kcfp=2730) This test is a genotyping assay which [...] these results should be interpreted in light ofclinical and familial data.This test [facility]. It has not been cleared or approved by the U.S. Food and Drug Administration (FDA), since FDA approval is not required for clinical use of the test. Validation was done as required by the Clinical Laboratory Improvement Amendments of 1988.POCT-GLUCOSE [id number] 07:28:00 Test Item Value Reference Range Comments POC-GLUCOSE METER (BEAKER) 200 mg/dL 70-110 TESTED AT [facility] [address] [facility] (test uyjw=7410) [facility] [address] POCT-GLUCOSE [id number] 21:18:00 Test Item Value Reference Range Comments POC-GLUCOSE METER (BEAKER) 211 mg/dL 70-110 TESTED AT [facility] [address] [place] [address] (test wgkl=3959) [facility] [address] PROTEIN, RANDOM [id number] 19:43:00 Test Item Value Reference Range Comments PROTEIN, URINE (BEAKER) (test udbp=5383) 286 mg/dL 0-14 CREATININE, RANDOM [id number] 18:27:00 Test Item Value Reference Range Comments CREATININE URINE (BEAKER) (test dltw=686) 29.3 mg/dL Reference Range: No NormalsDILUTE SHIRA VIPER VENOM (DRVV)2017-03-19 12:47:00 Test Item Value Reference Range Comments PROTIME (BEAKER) (test 11.3 seconds 11.7-14.7 prad=580) INR (BEAKER) (test brbs=746) 0.8 <=5.9 PARTIAL THROMBOPLASTIN TIME 28.0 seconds 22.5-36.0 (BEAKER) (test efaa=567) DRVV INTERPRETATION (BEAKER) Normal DRVV Results (test owei=2181) DRVV INTERPRETATION (BEAKER) Normal Hexagonal Phospholipid (test etoz=189611) [id number] (BEAKER) Martínez Wang MD (electronic (test quim=7914) signature) DRVV SCREEN RATIO (BEAKER) 0.84 <1.20 (test tago=5223) Effective 12/20/2013: Test Method ChangeDRVV Screen Ratio, DRVV 1/1 Screen Ratio, DRVV Confirm Ratio,DRVV Normalized Ratio Reference Range: <1.2Protime Reference Range ChangeNew: 11.7-14.7 Previous: 9.8-12.0PTT Reference Range ChangeNew: 22.5-36.0 Previous: 25.8-34.5URINE [id number] 11:40:00 Test Item Value Reference Range Comments CULTURE (BEAKER) (test 20-29,000 col/mL skin lei qzvv=9340) POCT-GLUCOSE [id number] 08:33:00 Test Item Value Reference Range Comments POC-GLUCOSE METER (BEAKER) 293 mg/dL 70-110 TESTED AT [facility] [address] [facility] (test kihr=1919) [facility] [address] VITAMIN D, [id number] 07:49:00 Test Item Value Reference Range Comments VITAMIN D 25-OH (BEAKER) (test skdo=1246) < ng/mL 13.0-47.8 CBC W/PLT COUNT & AUTO [id number] 05:59:00 Test Item Value Reference Range Comments WHITE BLOOD CELL COUNT (BEAKER) (test rtsx=129) 9.4 K/ L 3.5-10.5 RED BLOOD CELL COUNT (BEAKER) (test kktz=308) 4.16 M/ L 3.93-5.22 HEMOGLOBIN (BEAKER) (test vxny=418) 12.7 GM/DL 11.2-15.7 HEMATOCRIT (BEAKER) (test ffxu=920) 38.0 % 34.1-44.9 MEAN CORPUSCULAR VOLUME (BEAKER) (test egqg=402) 91.3 fL 79.4-94.8 MEAN CORPUSCULAR HEMOGLOBIN (BEAKER) (test 30.5 pg 25.6-32.2 yndz=973) MEAN CORPUSCULAR HEMOGLOBIN CONC (BEAKER) (test 33.4 GM/DL 32.2-35.5 oflj=262) RED CELL DISTRIBUTION WIDTH (BEAKER) (test 12.6 % 11.7-14.4 mvud=521) PLATELET COUNT (BEAKER) (test aikj=359) 329 K/CU MM 150-450 MEAN PLATELET VOLUME (BEAKER) (test lour=621) 10.0 fL 9.4-12.3 NUCLEATED RED BLOOD CELLS (BEAKER) (test 0 /100 WBC 0-0 fogm=244) NEUTROPHILS RELATIVE PERCENT (BEAKER) (test 68 % qpyc=899) LYMPHOCYTES RELATIVE PERCENT (BEAKER) (test 23 % jdau=075) MONOCYTES RELATIVE PERCENT (BEAKER) (test 7 % mphs=130) EOSINOPHILS RELATIVE PERCENT (BEAKER) (test 1 % iqdx=351) BASOPHILS RELATIVE PERCENT (BEAKER) (test 1 % gslr=474) NEUTROPHILS ABSOLUTE COUNT (BEAKER) (test 6.35 K/ L 1.56-6.13 iuft=181) LYMPHOCYTES ABSOLUTE COUNT (BEAKER) (test 2.16 K/ L 1.18-3.74 pqhk=598) MONOCYTES ABSOLUTE COUNT (BEAKER) (test 0.68 K/ L 0.24-0.36 rasj=788) EOSINOPHILS ABSOLUTE COUNT (BEAKER) (test 0.10 K/ L 0.04-0.36 qnre=988) BASOPHILS ABSOLUTE COUNT (BEAKER) (test 0.06 K/ L 0.01-0.08 otqy=667) IMMATURE GRANULOCYTES-RELATIVE PERCENT (BEAKER) 0 % 0-1 (test edvt=1033) BASIC METABOLIC [id number] 05:38:00 Test Item Value Reference Range Comments SODIUM (BEAKER) (test 135 meq/L 136-145 zlno=739) POTASSIUM (BEAKER) (test 4.1 meq/L 3.5-5.1 aqce=385) CHLORIDE (BEAKER) (test 102 meq/L 98-107 uljx=358) CO2 (BEAKER) (test 25 meq/L 22-29 whac=640) BLOOD UREA NITROGEN 12 mg/dL 7-21 (BEAKER) (test hedr=484) CREATININE (BEAKER) (test 1.99 mg/dL 0.57-1.25 tqhv=130) GLUCOSE RANDOM (BEAKER) 290 mg/dL 70-105 (test ihcu=320) CALCIUM (BEAKER) (test 8.7 mg/dL 8.4-10.2 hzcf=370) EGFR (BEAKER) (test 27 mL/min/1.73 sq m ESTIMATED GFR IS NOT tkee=3968) ACCURATE CREATININE CLEARANCE IN PREDICTING GLOMERULAR FILTRATION RATE. ESTIMATED GFR IS NOT APPLICABLE FOR DIALYSIS PATIENTS. [id number] 05:37:00 Test Item Value Reference Range Comments PHOSPHORUS (BEAKER) (test ptkb=421) 4.1 mg/dL 2.3-4.7 [id number] 05:37:00 Test Item Value Reference Range Comments MAGNESIUM (BEAKER) (test hqap=087) 1.7 mg/dL 1.6-2.6 PTH, [id number] 05:34:00 Test Item Value Reference Range Comments PARATHYROID HORMONE INTACT (BEAKER) (test 57.2 pg/mL 8.5-72.5 sokp=150) Effective 07/04/2014: Reference Range ChangeNew: 8.5-72.5 Previous: 15.0- 90.0CARDIOLIPIN ANTIBODIES, IGG AND [id number] 22:36:00 Test Item Value Reference Range Comments ANTICARDIOLIPIN IGG ANTIBODY (BEAKER) (test < GPL nltj=050) ANTICARDIOLIPIN IGM ANTIBODY (BEAKER) (test 2.8 MPL gzlp=599) Anticardiolipin IgG Result Interpretation:NEG: <20 GPL; U/mlPOS: >/=20 GPL; U/mlAnticardiolipin IgM Result Interpretation:NEG: <20 MPL; U/mlPOS: >/=20 MPL; U/mlPOCT-GLUCOSE [id number] 21:25:00 Test Item Value Reference Range Comments POC-GLUCOSE METER (BEAKER) 198 mg/dL 70-110 TESTED AT [address] (test tvdj=5532) [facility] [address] POCT-GLUCOSE [id number] 16:29:00 Test Item Value Reference Range Comments POC-GLUCOSE METER (BEAKER) 296 mg/dL 70-110 TESTED AT [address] (test apwx=5653) [place] [address] ANTI-NUCLEAR ANTIBODY (MARY)2017-03-18 15:30:00 Test Item Value Reference Range Comments ANTI-NUCLEAR ANTIBODY (MARY) (BEAKER) (test Negative Negative ywdg=548) HEXAGONAL [id number] 13:21:00 Test Item Value Reference Range Comments HEXAGONAL PHOSPHOLIPID (BEAKER) (test lqki=7364) Negative POCT-GLUCOSE [id number] 12:15:00 Test Item Value Reference Range Comments POC-GLUCOSE METER (BEAKER) 140 mg/dL 70-110 TESTED AT [address] (test dive=4008) [facility] [address] PROTEIN C [id number] 11:44:00 Test Item Value Reference Range Comments PROTEIN C ACTIVITY (BEAKER) (test hrwd=731) 155.0 % 70.0-130.0 Effective 12/20/2013: Reference Range Change-Adult onlyNew: 70.0-130.0 Previous : 70.0-140.0See Protein C Antigen.ANTITHROMBIN [id number] 11:43:00 Test Item Value Reference Range Comments ANTITHROMBIN III ACTIVITY (BEAKER) (test fpso=340) 87.0 % 80.0-120.0 Effective 12/20/2013: Reference Range Change-Adult onlyNew: 80.0-120.0 Previous : 90.0-128.0POCT-GLUCOSE [id number] 08:17:00 Test Item Value Reference Range Comments POC-GLUCOSE METER (BEAKER) 107 mg/dL 70-110 TESTED AT [facility] [address] (test mkhk=7149) [facility] [address] BASIC METABOLIC [id number] 06:32:00 Test Item Value Reference Range Comments SODIUM (BEAKER) (test 136 meq/L 136-145 puxq=192) POTASSIUM (BEAKER) (test 3.6 meq/L 3.5-5.1 spnr=735) CHLORIDE (BEAKER) (test 104 meq/L 98-107 hlhk=424) CO2 (BEAKER) (test 23 meq/L 22-29 pkvv=559) BLOOD UREA NITROGEN 11 mg/dL 7-21 (BEAKER) (test cqtx=767) CREATININE (BEAKER) (test 1.68 mg/dL 0.57-1.25 szio=307) GLUCOSE RANDOM (BEAKER) 99 mg/dL 70-105 (test tmdc=517) CALCIUM (BEAKER) (test 8.4 mg/dL 8.4-10.2 zgtl=763) EGFR (BEAKER) (test 33 mL/min/1.73 sq m ESTIMATED GFR IS NOT xvgd=1539) ACCURATE CREATININE CLEARANCE IN PREDICTING GLOMERULAR FILTRATION RATE. ESTIMATED GFR IS NOT APPLICABLE FOR DIALYSIS PATIENTS. CBC W/PLT COUNT & AUTO [id number] 05:56:00 Test Item Value Reference Range Comments WHITE BLOOD CELL COUNT (BEAKER) (test sigp=560) 11.7 K/ L 3.5-10.5 RED BLOOD CELL COUNT (BEAKER) (test xgod=715) 3.95 M/ L 3.93-5.22 HEMOGLOBIN (BEAKER) (test ktki=641) 12.1 GM/DL 11.2-15.7 HEMATOCRIT (BEAKER) (test uozy=014) 36.3 % 34.1-44.9 MEAN CORPUSCULAR VOLUME (BEAKER) (test jvca=100) 91.9 fL 79.4-94.8 MEAN CORPUSCULAR HEMOGLOBIN (BEAKER) (test 30.6 pg 25.6-32.2 nvjn=961) MEAN CORPUSCULAR HEMOGLOBIN CONC (BEAKER) (test 33.3 GM/DL 32.2-35.5 qjxm=992) RED CELL DISTRIBUTION WIDTH (BEAKER) (test 12.7 % 11.7-14.4 tdbi=597) PLATELET COUNT (BEAKER) (test fckt=174) 349 K/CU MM 150-450 MEAN PLATELET VOLUME (BEAKER) (test pgnq=192) 10.8 fL 9.4-12.3 NUCLEATED RED BLOOD CELLS (BEAKER) (test 0 /100 WBC 0-0 mjlr=485) NEUTROPHILS RELATIVE PERCENT (BEAKER) (test 59 % tcnw=552) LYMPHOCYTES RELATIVE PERCENT (BEAKER) (test 31 % ywpt=928) MONOCYTES RELATIVE PERCENT (BEAKER) (test 8 % fgyb=951) EOSINOPHILS RELATIVE PERCENT (BEAKER) (test 2 % joxr=791) BASOPHILS RELATIVE PERCENT (BEAKER) (test 1 % jdld=392) NEUTROPHILS ABSOLUTE COUNT (BEAKER) (test 6.87 K/ L 1.56-6.13 riwf=125) LYMPHOCYTES ABSOLUTE COUNT (BEAKER) (test 3.57 K/ L 1.18-3.74 rdlp=175) MONOCYTES ABSOLUTE COUNT (BEAKER) (test 0.90 K/ L 0.24-0.36 qvrw=940) EOSINOPHILS ABSOLUTE COUNT (BEAKER) (test 0.24 K/ L 0.04-0.36 renh=129) BASOPHILS ABSOLUTE COUNT (BEAKER) (test 0.06 K/ L 0.01-0.08 cequ=010) IMMATURE GRANULOCYTES-RELATIVE PERCENT (BEAKER) 0 % 0-1 (test oxof=1632) POCT-GLUCOSE [id number] 04:32:00 Test Item Value Reference Range Comments POC-GLUCOSE METER (BEAKER) 107 mg/dL 70-110 TESTED AT [address] (test vgqh=7630) [facility] [address] POCT-GLUCOSE [id number] 22:21:00 Test Item Value Reference Range Comments POC-GLUCOSE METER (BEAKER) 118 mg/dL 70-110 TESTED AT [address] (test bduy=2214) [facility] [address] POCT-GLUCOSE [id number] 21:22:00 Test Item Value Reference Range Comments POC-GLUCOSE METER (BEAKER) 52 mg/dL 70-110 Notified ARMOND REYNOSO/TESTED AT [facility] (test clzl=2849) [address] [facility] [address] MICROALBUMIN, RANDOM [id number] 17:57:00 Test Item Value Reference Range Comments MICROALBUMIN URINE (BEAKER) (test clrn=3036) > mg/dL Reference Range: No NormalsURINALYSIS W/ [id number] 17:36:00 Test Item Value Reference Range Comments COLOR (BEAKER) (test dgaw=048) Light Yellow CLARITY (BEAKER) (test holp=481) Clear SPECIFIC GRAVITY UA (BEAKER) (test toai=247) 1.005 1.001-1.035 PH UA (BEAKER) (test vpzt=377) 7.0 5.0-8.0 PROTEIN UA (BEAKER) (test vuyp=936) 300 mg/dL Negative GLUCOSE UA (BEAKER) (test srda=680) 30 mg/dL Negative KETONES UA (BEAKER) (test laqb=005) Negative Negative BILIRUBIN UA (BEAKER) (test tuye=416) Negative Negative BLOOD UA (BEAKER) (test eqll=631) Negative Negative NITRITE UA (BEAKER) (test oumc=446) Negative Negative LEUKOCYTE ESTERASE UA (BEAKER) (test qzli=299) Negative Negative UROBILINOGEN UA (BEAKER) (test lqul=960) 0.2 mg/dL 0.2-1.0 RBC UA (BEAKER) (test mpsh=505) 1 /HPF WBC UA (BEAKER) (test hntc=101) < /HPF BACTERIA (BEAKER) (test hqbn=496) Rare SQUAMOUS EPITHELIAL (BEAKER) (test nxlk=971) 1 /HPF SOURCE(BEAKER) (test pmkp=4271) Urine, Voided SCREEN, [id number] 17:36:00 Test Item Value Reference Range Comments TEST URINE (BEAKER) (test oxts=029) Negative CREATININE, RANDOM [id number] 17:35:00 Test Item Value Reference Range Comments CREATININE URINE (BEAKER) (test dchl=038) 33.9 mg/dL Reference Range: No NormalsSODIUM, RANDOM [id number] 17:35:00 Test Item Value Reference Range Comments SODIUM URINE (BEAKER) (test crdx=475) 63 meq/L Reference Range: No NormalsPOCT-GLUCOSE [id number] 17:34:00 Test Item Value Reference Range Comments POC-GLUCOSE METER (BEAKER) 118 mg/dL 70-110 TESTED AT [address] (test ztep=2760) [facility] [address] POCT-GLUCOSE [id number] 13:28:00 Test Item Value Reference Range Comments POC-GLUCOSE METER (BEAKER) 71 mg/dL 70-110 TESTED AT [address] (test kdhk=8801) [facility] [address] POCT-GLUCOSE [id number] 10:37:00 Test Item Value Reference Range Comments POC-GLUCOSE METER (BEAKER) 144 mg/dL 70-110 TESTED AT [address] (test wufh=7491) [facility] [address] POCT-GLUCOSE [id number] 07:18:00 Test Item Value Reference Range Comments POC-GLUCOSE METER (BEAKER) 60 mg/dL 70-110 TESTED AT [address] (test xojz=4937) [facility] [address] CBC W/PLT COUNT & AUTO [id number] 05:51:00 Test Item Value Reference Range Comments WHITE BLOOD CELL COUNT (BEAKER) (test bnms=289) 11.4 K/ L 3.5-10.5 RED BLOOD CELL COUNT (BEAKER) (test gyci=549) 3.81 M/ L 3.93-5.22 HEMOGLOBIN (BEAKER) (test rlij=484) 11.6 GM/DL 11.2-15.7 HEMATOCRIT (BEAKER) (test srnu=694) 34.5 % 34.1-44.9 MEAN CORPUSCULAR VOLUME (BEAKER) (test lcrf=138) 90.6 fL 79.4-94.8 MEAN CORPUSCULAR HEMOGLOBIN (BEAKER) (test 30.4 pg 25.6-32.2 dehh=846) MEAN CORPUSCULAR HEMOGLOBIN CONC (BEAKER) (test 33.6 GM/DL 32.2-35.5 xfvp=001) RED CELL DISTRIBUTION WIDTH (BEAKER) (test 12.6 % 11.7-14.4 yupe=679) PLATELET COUNT (BEAKER) (test zsue=057) 354 K/CU MM 150-450 MEAN PLATELET VOLUME (BEAKER) (test olag=774) 10.4 fL 9.4-12.3 NUCLEATED RED BLOOD CELLS (BEAKER) (test 0 /100 WBC 0-0 vhjp=412) NEUTROPHILS RELATIVE PERCENT (BEAKER) (test 72 % wwvi=816) LYMPHOCYTES RELATIVE PERCENT (BEAKER) (test 20 % jdfs=119) MONOCYTES RELATIVE PERCENT (BEAKER) (test 6 % ajls=371) EOSINOPHILS RELATIVE PERCENT (BEAKER) (test 1 % dnob=878) BASOPHILS RELATIVE PERCENT (BEAKER) (test 0 % bzgr=125) NEUTROPHILS ABSOLUTE COUNT (BEAKER) (test 8.21 K/ L 1.56-6.13 dfbl=256) LYMPHOCYTES ABSOLUTE COUNT (BEAKER) (test 2.31 K/ L 1.18-3.74 dcut=066) MONOCYTES ABSOLUTE COUNT (BEAKER) (test 0.65 K/ L 0.24-0.36 zirr=124) EOSINOPHILS ABSOLUTE COUNT (BEAKER) (test 0.11 K/ L 0.04-0.36 yhqt=348) BASOPHILS ABSOLUTE COUNT (BEAKER) (test 0.05 K/ L 0.01-0.08 gace=978) IMMATURE GRANULOCYTES-RELATIVE PERCENT (BEAKER) 0 % 0-1 (test cpgh=9124) BASIC METABOLIC [id number] 05:51:00 Test Item Value Reference Range Comments SODIUM (BEAKER) (test 138 meq/L 136-145 nfoe=833) POTASSIUM (BEAKER) (test 3.8 meq/L 3.5-5.1 nkuv=605) CHLORIDE (BEAKER) (test 105 meq/L 98-107 nyai=860) CO2 (BEAKER) (test 26 meq/L 22-29 zmwg=180) BLOOD UREA NITROGEN 13 mg/dL 7-21 (BEAKER) (test uziz=933) CREATININE (BEAKER) (test 1.66 mg/dL 0.57-1.25 nghl=039) GLUCOSE RANDOM (BEAKER) 167 mg/dL 70-105 (test mjfo=489) CALCIUM (BEAKER) (test 8.9 mg/dL 8.4-10.2 fehh=214) EGFR (BEAKER) (test 34 mL/min/1.73 sq m ESTIMATED GFR IS NOT bdfd=6956) ACCURATE CREATININE CLEARANCE IN PREDICTING GLOMERULAR FILTRATION RATE. ESTIMATED GFR IS NOT APPLICABLE FOR DIALYSIS PATIENTS. POCT-GLUCOSE [id number] 21:41:00 Test Item Value Reference Range Comments POC-GLUCOSE METER (BEAKER) 287 mg/dL 70-110 TESTED AT [facility] [address] (test dneo=1448) [facility] [address] BASIC METABOLIC [id number] 12:35:00 Test Item Value Reference Range Comments SODIUM (BEAKER) (test 134 meq/L 136-145 tumz=307) POTASSIUM (BEAKER) (test 4.6 meq/L 3.5-5.1 hcnk=880) CHLORIDE (BEAKER) (test 105 meq/L 98-107 fdnz=531) CO2 (BEAKER) (test 23 meq/L 22-29 ztwo=394) BLOOD UREA NITROGEN 14 mg/dL 7-21 (BEAKER) (test mmuh=855) CREATININE (BEAKER) 1.59 mg/dL 0.57-1.25 (test yskg=308) GLUCOSE RANDOM (BEAKER) 266 mg/dL 70-105 (test ttch=697) CALCIUM (BEAKER) (test 8.2 mg/dL 8.4-10.2 xlui=359) EGFR (BEAKER) (test 36 mL/min/1.73 sq m INSUFFICIENT CLINICAL DATA rokw=7034) TO CALCULATE ESTIMATED GFR.This is an appended report. These results have been appended to a previously final verified report. CBC W/PLT COUNT & AUTO [id number] 04:54:00 Test Item Value Reference Range Comments WHITE BLOOD CELL COUNT (BEAKER) (test qdyu=255) 10.6 K/ L 3.5-10.5 RED BLOOD CELL COUNT (BEAKER) (test ctle=435) 3.55 M/ L 3.93-5.22 HEMOGLOBIN (BEAKER) (test szqi=921) 10.8 GM/DL 11.2-15.7 HEMATOCRIT (BEAKER) (test srxq=395) 32.6 % 34.1-44.9 MEAN CORPUSCULAR VOLUME (BEAKER) (test qnuo=065) 91.8 fL 79.4-94.8 MEAN CORPUSCULAR HEMOGLOBIN (BEAKER) (test 30.4 pg 25.6-32.2 rbdj=780) MEAN CORPUSCULAR HEMOGLOBIN CONC (BEAKER) (test 33.1 GM/DL 32.2-35.5 dwyn=185) RED CELL DISTRIBUTION WIDTH (BEAKER) (test 12.3 % 11.7-14.4 vldr=021) PLATELET COUNT (BEAKER) (test byfx=991) 311 K/CU MM 150-450 MEAN PLATELET VOLUME (BEAKER) (test uoiv=128) 10.2 fL 9.4-12.3 NUCLEATED RED BLOOD CELLS (BEAKER) (test 0 /100 WBC 0-0 wjej=493) NEUTROPHILS RELATIVE PERCENT (BEAKER) (test 71 % gbhf=255) LYMPHOCYTES RELATIVE PERCENT (BEAKER) (test 20 % tczq=788) MONOCYTES RELATIVE PERCENT (BEAKER) (test 6 % moty=340) EOSINOPHILS RELATIVE PERCENT (BEAKER) (test 3 % tbkd=096) BASOPHILS RELATIVE PERCENT (BEAKER) (test 1 % kvic=145) NEUTROPHILS ABSOLUTE COUNT (BEAKER) (test 7.51 K/ L 1.56-6.13 jbdp=439) LYMPHOCYTES ABSOLUTE COUNT (BEAKER) (test 2.11 K/ L 1.18-3.74 kzrz=467) MONOCYTES ABSOLUTE COUNT (BEAKER) (test 0.60 K/ L 0.24-0.36 xrke=530) EOSINOPHILS ABSOLUTE COUNT (BEAKER) (test 0.27 K/ L 0.04-0.36 huoj=064) BASOPHILS ABSOLUTE COUNT (BEAKER) (test 0.07 K/ L 0.01-0.08 xkep=858) IMMATURE GRANULOCYTES-RELATIVE PERCENT (BEAKER) 1 % 0-1 (test mspz=3710) [id number] 20:17:00 Test Item Value Reference Range Comments RPR SCREEN (BEAKER) (test cgqy=721) Nonreactive Nonreactive POCT-GLUCOSE [id number] 18:09:00 Test Item Value Reference Range Comments POC-GLUCOSE METER (BEAKER) 215 mg/dL 70-110 TESTED AT [facility] [address] [facility] (test eamw=7378) [place] [address] CBC W/PLT COUNT & AUTO [id number] 11:54:00 Test Item Value Reference Range Comments WHITE BLOOD CELL COUNT (BEAKER) (test soyp=855) 9.3 K/ L 3.5-10.5 RED BLOOD CELL COUNT (BEAKER) (test ivbh=939) 3.45 M/ L 3.93-5.22 HEMOGLOBIN (BEAKER) (test chqe=755) 10.7 GM/DL 11.2-15.7 HEMATOCRIT (BEAKER) (test ihgr=810) 32.0 % 34.1-44.9 MEAN CORPUSCULAR VOLUME (BEAKER) (test wgoe=015) 92.8 fL 79.4-94.8 MEAN CORPUSCULAR HEMOGLOBIN (BEAKER) (test 31.0 pg 25.6-32.2 mtdl=195) MEAN CORPUSCULAR HEMOGLOBIN CONC (BEAKER) (test 33.4 GM/DL 32.2-35.5 xedp=308) RED CELL DISTRIBUTION WIDTH (BEAKER) (test 12.7 % 11.7-14.4 ujro=477) PLATELET COUNT (BEAKER) (test kjmv=234) 302 K/CU MM 150-450 MEAN PLATELET VOLUME (BEAKER) (test tidy=645) 10.0 fL 9.4-12.3 NUCLEATED RED BLOOD CELLS (BEAKER) (test 0 /100 WBC 0-0 qrjw=716) NEUTROPHILS RELATIVE PERCENT (BEAKER) (test 60 % jptw=648) LYMPHOCYTES RELATIVE PERCENT (BEAKER) (test 29 % psxd=344) MONOCYTES RELATIVE PERCENT (BEAKER) (test 8 % qgmg=436) EOSINOPHILS RELATIVE PERCENT (BEAKER) (test 3 % mpxa=170) BASOPHILS RELATIVE PERCENT (BEAKER) (test 1 % wwrd=743) NEUTROPHILS ABSOLUTE COUNT (BEAKER) (test 5.55 K/ L 1.56-6.13 zapg=117) LYMPHOCYTES ABSOLUTE COUNT (BEAKER) (test 2.65 K/ L 1.18-3.74 dqjr=447) MONOCYTES ABSOLUTE COUNT (BEAKER) (test 0.70 K/ L 0.24-0.36 niwn=387) EOSINOPHILS ABSOLUTE COUNT (BEAKER) (test 0.31 K/ L 0.04-0.36 prho=500) BASOPHILS ABSOLUTE COUNT (BEAKER) (test 0.05 K/ L 0.01-0.08 uigr=050) IMMATURE GRANULOCYTES-RELATIVE PERCENT (BEAKER) 0 % 0-1 (test ylbf=5291) (MANUAL DIFFERENTIAL)2017-03-15 11:54:00 Test Item Value Reference Range Comments TOTAL COUNTED (BEAKER) (test bllu=9493) WBC MORPHOLOGY (BEAKER) (test rljy=805) Normal PLT MORPHOLOGY (BEAKER) (test equf=704) Normal RBC MORPHOLOGY (BEAKER) (test drjt=896) Normal SEDIMENTATION [id number] 10:27:00 Test Item Value Reference Range Comments SEDIMENTATION RATE, ERYTHROCYTE (BEAKER) (test 79 mm/HR 0-20 izmh=269) HEMOGLOBIN [id number] 09:33:00 Test Item Value Reference Range Comments HEMOGLOBIN A1C (BEAKER) (test xscx=532) 9.8 % 4.3-6.1 VITAMIN [id number] 09:14:00 Test Item Value Reference Range Comments VITAMIN B12 (BEAKER) (test gcgw=660) 1790 pg/mL 213-816 TSH/FREE T4 IF [id number] 09:14:00 Test Item Value Reference Range Comments THYROID STIMULATING HORMONE (BEAKER) (test 1.08 uIU/mL 0.35-4.94 pzvd=515) BASIC METABOLIC [id number] 08:52:00 Test Item Value Reference Range Comments SODIUM (BEAKER) (test 137 meq/L 136-145 hfwq=479) POTASSIUM (BEAKER) (test 4.7 meq/L 3.5-5.1 ikmx=420) CHLORIDE (BEAKER) (test 107 meq/L 98-107 ojfc=449) CO2 (BEAKER) (test 25 meq/L 22-29 oncp=953) BLOOD UREA NITROGEN 18 mg/dL 7-21 (BEAKER) (test hasa=857) CREATININE (BEAKER) (test 1.77 mg/dL 0.57-1.25 dfpg=106) GLUCOSE RANDOM (BEAKER) 290 mg/dL 70-105 (test fxon=027) CALCIUM (BEAKER) (test 8.0 mg/dL 8.4-10.2 wmql=284) EGFR (BEAKER) (test mL/min/1.73 sq m INSUFFICIENT CLINICAL DATA sird=5219) TO CALCULATE ESTIMATED GFR. FastingLIPID [id number] 08:51:00 Test Item Value Reference Range Comments TRIGLYCERIDES (BEAKER) (test nxkv=462) 90 mg/dL CHOLESTEROL (BEAKER) (test rixm=155) 143 mg/dL HDL CHOLESTEROL (BEAKER) (test ujet=139) 44 mg/dL LDL CHOLESTEROL CALCULATED (BEAKER) (test 81 mg/dL dwmi=644) Triglyceride Reference Range: Low Risk <150 Borderline 150- 199 High Risk 200-499 Very High Risk >=500Cholesterol Reference Range: Low Risk <200 Borderline 200-239 High Risk > 240HDL Cholesterol Reference Range: Low Risk >=60 High Risk <40LDL Cholesterol Reference Range: Optimal <100 Near Optimal 100-129 Borderline 130-159 High 160-189 Very High >=190 FastingHCG, QUANTITATIVE, [id number] 01:43:00 Test Item Value Reference Range Comments GONADOTROPIN, CHORIONIC (HCG) QUANT (BEAKER) (test < mIU/mL 0-10 bhgv=005) Non- Females: <10 mIU/mL Females: Gestation Age Reference Range(mIU/mL) 0.2-1 Week 5-50 1-2 Weeks 50-500 2-3 Weeks 100-5,000 3-4Weeks 500-10,000 4 -5 Weeks 1,000-50,000 5-6 Weeks 10,000-100,000 6-8 Weeks 15,000-200,000 2-3 Months 10,000-100,000COMPREHENSIVE METABOLIC [id number] 21:57:00 Test Item Value Reference Range Comments TOTAL PROTEIN (BEAKER) 5.0 gm/dL 6.0-8.3 (test newp=372) ALBUMIN (BEAKER) (test 2.1 g/dL 3.5-5.0 azku=2684) ALKALINE PHOSPHATASE 106 U/L 40-150 (BEAKER) (test zzqs=334) BILIRUBIN TOTAL (BEAKER) 0.2 mg/dL 0.2-1.2 (test lipo=157) SODIUM (BEAKER) (test 137 meq/L 136-145 fwax=554) POTASSIUM (BEAKER) (test 4.7 meq/L 3.5-5.1 kfpm=933) CHLORIDE (BEAKER) (test 106 meq/L 98-107 upwr=714) CO2 (BEAKER) (test 25 meq/L 22-29 tzbe=186) BLOOD UREA NITROGEN 21 mg/dL 7-21 (BEAKER) (test cwnp=792) CREATININE (BEAKER) (test 2.00 mg/dL 0.57-1.25 sqgo=362) GLUCOSE RANDOM (BEAKER) 285 mg/dL 70-105 (test naxs=912) CALCIUM (BEAKER) (test 7.9 mg/dL 8.4-10.2 ztdq=104) AST (SGOT) (Access ScientificAKER) (test 16 U/L 5-34 nxjb=305) ALT (SGPT) ([employer]AKER) (test 14 U/L 6-55 npxy=321) EGFR ([email or web address]) (test mL/min/1.73 sq m INSUFFICIENT CLINICAL DATA cadf=9363) TO CALCULATE ESTIMATED GFR. Unit CollectPOCT-GLUCOSE [id number] 21:50:00 Test Item Value Reference Range Comments POC-GLUCOSE METER ([email or web address]) 278 mg/dL 70-110 TESTED AT [facility] [address] [facility] (test vljy=7556) [facility] [address]
[2017-12-21 21:01] LABS: Absolute Monocytes 0.7 K/uL (0.1-1.3); Absolute Neutrophil 7.7 K/uL (1.8-8.0); Basophils % 0.5 % (0-1.3); Eosinophils % 1.3 % (0-4.4); Hematocrit 39.4 % (36.0-45.0); Lymphocytes % 25.8 % (15.3-44.8); MCH 30.4 pg (27.0-35.0); MCV 89.7 fL (80-100); MPV 8.5 fL (7.6-11.3); Monocytes % 6.4 % (3.3-12.3)
[2017-12-21 21:08] LABS: Protime INR 0.92
--- NOTE | 2017-12-21 21:47 | EDPHYS ---
Physician Documentation [facility] Name: Archana Woo Age: 42 yrs Sex: Female : 1975 Arrival Date: 12/21/2017 Time: 20:07 Bed 16 Private MD: ED Physician Matt Lemons HPI: 12/21 21:44 This 42 yrs old Female presents to ER via EMS with complaints of Chest Pain. gs 21:44 The patient or guardian reports chest pain that is located primarily in the anterior gs chest wall. Onset: today. The pain does not radiate. Associated signs and symptoms: Pertinent positives: shortness of breath. The chest pain is described as a heaviness. Duration: The patient or guardian reports multiple episodes, that wax and wane, with no pattern. Modifying factors: The symptoms are alleviated by nothing. the symptoms are aggravated by nothing. Severity of pain: At its worst the pain was severe in the emergency department the pain has improved markedly. The patient has experienced similar episodes in the past, several times. 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 - Social history:: Smoking status: Patient uses tobacco products, denies chronic smoking, but will smoke occasionally. ROS: 21:44 All other systems are negative. gs Exam: 21:44 Head/Face: Normocephalic, atraumatic. Eyes: Pupils equal round and reactive to light, gs extra-ocular motions intact. Lids and lashes normal. Conjunctiva and sclera are non-icteric and not injected. Cornea within normal limits. Periorbital areas with no swelling, redness, or edema. ENT: Nares patent. No nasal discharge, no septal abnormalities noted. Tympanic membranes are normal and external auditory canals are clear. Oropharynx with no redness, swelling, or masses, exudates, or evidence of obstruction, uvula midline. Mucous membranes moist. Neck: Trachea midline, no thyromegaly or masses palpated, and no cervical lymphadenopathy. Supple, full range of motion without nuchal rigidity, or vertebral point tenderness. No Meningismus. Chest/axilla: Normal chest wall appearance and motion. Nontender with no deformity. No lesions are appreciated. Cardiovascular: Regular rate and rhythm with a normal S1 and S2. No gallops, murmurs, or rubs. Normal PMI, no JVD. No pulse deficits. Respiratory: Lungs have equal breath sounds bilaterally, clear to auscultation and percussion. No rales, rhonchi or wheezes noted. No increased work of breathing, no retractions or nasal flaring. Abdomen/GI: Soft, non-tender, with normal bowel sounds. No distension or tympany. No guarding or rebound. No evidence of tenderness throughout. Back: No spinal tenderness. No costovertebral tenderness. Full range of motion. Skin: Warm, dry with normal turgor. Normal color with no rashes, no lesions, and no evidence of cellulitis. MS/ Extremity: Pulses equal, no cyanosis. Neurovascular intact. Full, normal range of motion. Neuro: Awake and alert, GCS 15, oriented to person, place, time, and situation. Cranial nerves II-XII grossly intact. Motor strength 5/5 in all extremities. Sensory grossly intact. Cerebellar exam normal. Normal gait. 21:44 Constitutional: The patient appears alert, awake. 21:44 ECG was reviewed by the Attending Physician. Vital Signs: 20:05 BP 154 / 81; Pulse 91; Resp 19; Temp 98.4(O); Pulse Ox 100% on R/A; Weight 78.47 kg; bs1 Height 5 ft. 4 in. (162.56 cm); Pain 10/10; 21:47 BP 144 / 75; Pulse 74; Resp 17; Pulse Ox 100% on R/A; Pain 9/10; bs1 22:45 BP 154 / 82; Pulse 81; Resp 16 S; Pulse Ox 99% on R/A; bs1 23:30 BP 141 / 85; Pulse 70; Resp 16; Temp 98.0(O); Pulse Ox 98% on R/A; Pain 5/10; bs1 20:05 Body Mass Index 29.69 (78.47 kg, 162.56 cm) bs1 MDM: 20:45 Patient medically screened. gs 21:44 Differential diagnosis: abnormal EKG, acute myocardial infarction, coronary artery gs disease chest wall pain. Data reviewed: vital signs, nurses notes. 05 20:45 Order name: Basic Metabolic Panel; Complete Time: 21:29 12/21 20:45 Order name: CBC with Diff; Complete Time: 21:29 gs 12/21 20:45 Order name: PT-INR; Complete Time: 21:29 gs 12/21 20:45 Order name: Troponin (emerg Dept Use Only); Complete Time: 21:35 12/21 20:45 Order name: XRAY Chest (1 view) 12/21 21:43 Order name: Glucose, Ancillary Testing; Complete Time: 21:44 EDMS 12/21 20:21 Order name: EKG; Complete Time: 20:21 12/21 20:21 Order name: EKG - Nurse/Tech; Complete Time: 20:23 12/21 20:45 Order name: Cardiac monitoring; Complete Time: 20:58 gs 05 20:45 Order name: IV Saline Lock; Complete Time: 20:58 12/21 20:45 Order name: Labs collected and sent; Complete Time: 20:58 12/21 20:45 Order name: O2 Per Protocol; Complete Time: 20:58 12/21 20:45 Order name: O2 Sat Monitoring; Complete Time: 20:58 gs EC:44 Rate is 89 beats/min. Rhythm is regular. HI interval is normal. QRS interval is normal. gs T waves are Normal. No ST changes noted. Clinical impression: NSR w/ Non-specific ST/T Changes. Interpreted by me. Administered Medications: 22:42 Drug: fentaNYL (PF) 50 mcg Route: IVP; Site: right forearm; bs1 23:19 Follow up: Response: No adverse reaction bs1 22:42 Drug: Zofran 4 mg Route: IVP; Site: right forearm; bs1 23:19 Follow up: Response: No adverse reaction bs1 Point of Care Testing: Blood Glucose: 20:58 Blood Glucose: 355 mg/dL; lp1 23:47 Blood Glucose: 280 mg/dL; bs1 Ranges: Critical Glucose Levels:Adult <50 mg/dl or >400 mg/dl <40 mg/dl or >180 mg/dl Disposition: 12/21/17 21:46 Hospitalization ordered by Everett Chan for Observation. Preliminary diagnosis is Precordial pain. - Bed requested for Telemetry/MedSurg (observation). - Status is Observation. bs1 - Condition is Stable. - Problem is an acute exacerbation. - Symptoms have improved. UTI on Admission? No Signatures: Dispatcher [employer] Tiffany Verdugo RN RN cg Matt Lemons MD MD Virgiina Gallego RN RN bs1 Corrections: (The following items were deleted from the chart) 22:42 21:46 Hospitalization Ordered by Everett Chan MD for Observation. Preliminary cg diagnosis is Precordial pain. Bed requested for Telemetry/MedSurg (observation). Status is Observation. Condition is Stable. Problem is an acute exacerbation. Symptoms have improved. UTI on Admission? No. 23:58 22:42 12/21/2017 21:46 Hospitalization Ordered by Everett Chan MD for Observation. bs1 Preliminary diagnosis is Precordial pain. Bed requested for Telemetry/MedSurg (observation). Status is Observation. Condition is Stable. Problem is an acute exacerbation. Symptoms have improved. UTI on Admission? No. cg
--- NOTE | 2017-12-21 21:47 | ER ---
Nurse's Notes [facility] Name: Archana Woo Age: 42 yrs Sex: Female : 1975 Arrival Date: 12/21/2017 Time: 20:07 Bed 16 Private MD: Diagnosis: Precordial pain Presentation: 12/21 19:36 Acuity: TARUN 3 bs1 20:05 Method Of Arrival: EMS: [facility] bs1 20:05 Presenting complaint: EMS states: "Patient started having severe chest pain that bs1 radiates to her left side and underneath left breast around 1800 with some SOB, EKG shows no ST elevation, vitals 158/92, 100% room air.". Transition of care: patient was not received from another setting of care. Onset of symptoms was December 21, 2017 at 18:00. Initial Sepsis Screen: Does the patient meet any 2 criteria? No. Patient's initial sepsis screen is negative. Does the patient have a suspected source of infection? No. Patient's initial sepsis screen is negative. Care prior to arrival: Medication(s) given: ASA, 81 mg, x 3, Glucose check: 329 12 Lead EKG. Care prior to arrival: Patient took 3 81mg aspirin and tums. EMS took a 12 Lead EKG, Blood glucose 329. 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 - Social history:: Smoking status: Patient uses tobacco products, denies chronic smoking, but will smoke occasionally. Screenin:47 Abuse screen: Denies threats or abuse. Denies injuries from another. Nutritional bs1 screening: No deficits noted. Tuberculosis screening: No symptoms or risk factors identified. Fall Risk None identified. Assessment: 20:45 General: Appears in no apparent distress. uncomfortable, Behavior is cooperative, bs1 anxious. Pain: Complains of pain in chest Pain radiates to left side/underneath left breast Pain currently is 10 out of 10 on a pain scale. Quality of pain is described as sharp, Pain began 3 hours ago. 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 Neuro: Reports weakness. Cardiovascular: Reports chest pain, diaphoresis, nausea, shortness of breath, Heart tones S1 S2 present Capillary refill < 3 seconds Patient's skin is warm and dry. Rhythm is regular. Respiratory: Reports shortness of breath at rest on exertion Airway is patent Trachea midline Respiratory effort is even, unlabored, Respiratory pattern is regular, symmetrical. GI: Abdomen is round non-distended, Bowel sounds present X 4 quads. Abd is non tender X 4 quads Reports nausea. : No deficits noted. No signs and/or symptoms were reported regarding the genitourinary system. EENT: Eyes blind in bilateral eyes. Derm: Skin is intact, Skin is pink, warm \\T\\ dry. Musculoskeletal: Circulation, motion, and sensation intact. Capillary refill < 3 seconds. 22:45 Reassessment: Patient appears in no apparent distress at this time. No changes from bs1 previously documented assessment. Patient and/or family updated on plan of care and expected duration. Pain level reassessed. Patient is alert, oriented x 3, equal unlabored respirations, skin warm/dry/pink. 23:00 Reassessment: Patient appears in no apparent distress at this time. Patient and/or bs1 family updated on plan of care and expected duration. Pain level reassessed. Patient is alert, oriented x 3, equal unlabored respirations, skin warm/dry/pink. Patient states symptoms have improved. Vital Signs: 20:05 BP 154 / 81; Pulse 91; Resp 19; Temp 98.4(O); Pulse Ox 100% on R/A; Weight 78.47 kg; bs1 Height 5 ft. 4 in. (162.56 cm); Pain 10/10; 21:47 BP 144 / 75; Pulse 74; Resp 17; Pulse Ox 100% on R/A; Pain 9/10; bs1 22:45 BP 154 / 82; Pulse 81; Resp 16 S; Pulse Ox 99% on R/A; bs1 23:30 BP 141 / 85; Pulse 70; Resp 16; Temp 98.0(O); Pulse Ox 98% on R/A; Pain 5/10; bs1 20:05 Body Mass Index 29.69 (78.47 kg, 162.56 cm) bs1 ED Course: 20:07 Patient arrived in ED. ds1 20:20 Matt Lemons MD is Attending Physician. gs 20:31 Virginia Gallego, ARMOND is Primary Nurse. bs1 20:40 Arm band placed on placed. bs1 20:40 EKG completed in triage. Results shown to MD. bs1 20:42 Triage completed. bs1 20:53 Patient has correct armband on for positive identification. Placed in gown. Bed in low bs1 position. Call light in reach. Adult w/ patient. media monitor on. Pulse ox on. NIBP on. Sitter at bedside. Warm blanket given. 20:57 Missed attempt(s): 22 gauge in left forearm. Inserted saline lock: 22 gauge in right lp1 forearm, using aseptic technique. Blood collected. 21:10 XRAY Chest (1 view) In Process Unspecified. EDMS 21:46 Everett Chan MD is Hospitalizing Provider. gs 21:48 No provider procedures requiring assistance completed. bs1 23:19 Patient maintains SpO2 saturation greater than 95% on room air. bs1 23:50 Patient admitted, IV remains in place. intact. bs1 23:55 Lab(s) recollected, by ED staff, sent to lab. Repeat troponin 2355. bs1 Administered Medications: 22:42 Drug: fentaNYL (PF) 50 mcg Route: IVP; Site: right forearm; bs1 23:19 Follow up: Response: No adverse reaction bs1 22:42 Drug: Zofran 4 mg Route: IVP; Site: right forearm; bs1 23:19 Follow up: Response: No adverse reaction bs1 Point of Care Testing: Blood Glucose: 20:58 Blood Glucose: 355 mg/dL; lp1 23:47 Blood Glucose: 280 mg/dL; bs1 Ranges: Outcome: 21:46 Decision to Hospitalize by Provider. gs 23:49 Admitted to Med/surg accompanied by nurse, room 219, Melony, from 2nd floor came to get bs1 patient from ER, with chart, Report called to NINA Ty 23:49 Condition: stable 23:49 Instructed on the need for admit. 23:58 Patient left the ED. bs1 Signatures: Dispatcher [employer] EDMS Shalini Hoffman dsJohn Marcela Smith RN RN lp1 Matt Lemons MD MD gs Salazar, Brittany RN RN bs1 Corrections: (The following items were deleted from the chart) :52 19:36 Presenting complaint: EMS states: "Patient started having severe chest pain that bs1 radiates to her left side and underneath left breast around 1800 with some SOB, EKG shows no ST elevation, vitals 158/92, 100% room air." bs1 :52 19:36 Transition of care: patient was not received from another setting of care. [place] [id number] :52 19:36 Onset of symptoms was December 21, 2017 [facility] 18:[facility] 19:36 Initial Sepsis Screen: Does the patient meet any 2 criteria? No. Patient's bs1 initial sepsis screen is negative. Does the patient have a suspected source of infection? No. Patient's initial sepsis screen is negative. bs1 20:52 19:36 Care prior to arrival: Patient took 3 81mg aspirin and tums. EMS took a 12 Lead bs1 EKG, Blood glucose 329 bs1 :52 19:36 Method Of Arrival: EMS: [facility] [place] [id number] :52 19:36 Care prior to arrival: Medication(s) given: ASA, 81 mg, x 3, Glucose check: 329 bs 12 Lead EKG bs1 20:53 19:36 BP 154 / 81; Pulse 91bpm; Resp 19bpm; Pulse Ox 100% RA; Temp 98.4F Oral; 78.47 bs1 kg; Height 5 ft. 4 in.; BMI: 29.7; Pain 10/10; bs1
[2017-12-21] MEDS ORDERED: ALPRAZOLAM 0.25 MG TABLET PO PRN (22:12)
[2017-12-21] MEDS ORDERED: ACETAMINOPHEN 500 MG TAB PO PRN (22:12)
[2017-12-21] MEDS ORDERED: FENTANYL CITR 100 MCG/2 ML ONE (22:34)
[2017-12-21] MEDS ORDERED: ONDANSETRON 4 MG/2 ML VIAL ONE (22:35)
--- NOTE | 2017-12-21 22:42 | RAD REPORT ---
EXAM DESCRIPTION: RAD - Chest Single View - 12/21/2017 9:09 pm CLINICAL HISTORY: Chest pain COMPARISON: September 01 TECHNIQUE: AP portable chest image was obtained 2101 hours . FINDINGS: Lung volumes are low. No focal infiltrate, failure or edema. Heart and vasculature are nor mal. No measurable pleural effusion and no pneumothorax. No gross bony abnormality seen. No acute aor tic findings suspected. IMPRESSION: No acute cardiopulmonary process. No significant interval change.
[2017-12-22 00:19] VITALS: BMI 30.4
[2017-12-22 00:53] VITALS: O2SAT 98
[2017-12-22] MEDS: MORPHINE 4 MG/ML SYR IV PRN ×2 (01:49→06:27)
[2017-12-22] MEDS: ONDANSETRON 4 MG/2 ML VIAL IV PRN ×3 (03:15→10:31)
--- NOTE | 2017-12-22 04:26 | P.HP ---
Certification for Inpatient Patient admitted to: Observation With expected LOS: <2 Midnights Patient will require the following post-hospital care: None Practitioner: I am a practitioner with admitting privileges, knowledge of patient current condition, hospital course, and medical plan of care. Services: Services provided to patient in accordance with Admission requirements found in Title 42 Section 412.3 of the Code of Federal Regulations Patient History Date of Service: 12/21/17 Reason for admission: Chest pain rule out acute coronary syndrome History of Present Illness: Patient is a 42-year-old female who presents sent to the hospital with chest discomfort. Pain was mainly in the sternal region. Patient's pain is reproducible. Patient also states that she feels it when she takes a breath. She has had a cardiac catheterization recently in July which did not reveal any significant plaquing. Patient's troponins remained negative. It appears her pain is mainly around the sternal region. This is most likely musculoskeletal. Will go ahead and review her chest x-ray in monitor her vital signs. We will do serial troponins and EKG. Will have also recommended her follow-up with her primary care provider for preventive care including mammogram to rule out other causes of her chest discomfort. At this time patient is doing well and if her workup is negative she should be able to go home in the morning as she has had a complete cardiac workup recently. Allergies No Known Drug Allergies Allergy (Verified 12/22/17 01:53) NONE No Known Allergies Allergy (Uncoded 12/22/17 01:53) Unknown Home Medications: Insulin Glargine,Hum.rec.anlog [Yanick Arroyo] 300 sqbot SQ DAILY 12/22/17 - Past Medical/Surgical History Has patient received pneumonia vaccine in the past: No Diabetic: Yes -: Legally blind, diabetic retinopathy -: Hypertension -: Depression with anxiety -: History of thyroid cancer -: Hyperlipidemia -: Tobacco abuse -: GERD -: COPD -: Chronic renal disease -: Diabetic retinopathy and nephropathy -: Cholecystectomy -: Thyroidectomy -: Multiple eye surgeries -: Psychosocial/ Personal History: The patient is . She has 1 child. She is disabled. - Family History Father Medical History: Heart disease, Hypertension, Other (see notes) Notes: thyroid problems. parents both disease Mother Medical History: Diabetes, Kidney disease - Social History Smoking Status: Current every day smoker Alcohol use: No CD- Drugs: No Caffeine use: Yes Place of Residence: Home Review of Systems 10-point ROS is otherwise unremarkable Physical Examination - Vital Signs Temperature: 97.5 F Blood Pressure: 134/80 Pulse: 82 Respirations: 18 Pulse Ox (%): 96 - Physical Exam General: Alert, In no apparent distress, Oriented x3 HEENT: Atraumatic, Mucous membr. moist/pink, Sclerae nonicteric Neck: Supple, 2+ carotid pulse no bruit, No LAD, Without JVD or thyroid abnormality Respiratory: Clear to auscultation bilaterally, Normal air movement Cardiovascular: Regular rate/rhythm, Normal S1 S2, No murmurs Gastrointestinal: Normal bowel sounds, Soft and benign, Non-distended, No tenderness Musculoskeletal: No clubbing, No swelling, No tenderness Integumentary: No rashes Neurological: Normal gait, Normal speech, Normal strength at 5/5 x4 extr, Normal tone, Sensation intact, Cranial nerves 3-12 intact (Except her vision is diminished), Normal affect Lymphatics: No axilla or inguinal lymphadenopathy - Studies Laboratory Data (last 24 hrs) 12/21/17 00:54: PT 10.8, INR 0.92 12/21/17 00:54: WBC 11.7 H, Hgb 13.4, Hct 39.4, Plt Count 267 12/21/17 00:54: Sodium 135, Potassium 4.0, BUN 19, Creatinine 1.86 H, Glucose 361 H Assessment & Plan - Problems (Diagnosis) (1) Costochondritis Current Visit: Yes Status: Acute (2) Chronic kidney disease Current Visit: Yes Status: Acute (3) Chest pain, rule out acute myocardial infarction Onset Date: 08/06/17 Current Visit: No Status: Acute (4) Diabetes mellitus Onset Date: 03/03/17 Current Visit: No Status: Chronic (5) Hyperlipidemia Onset Date: 03/03/17 Current Visit: No Status: Chronic Qualifiers: (6) Hypertension Onset Date: 03/03/17 Current Visit: No Status: Chronic Qualifiers: (7) Tobacco abuse Onset Date: 03/03/17 Current Visit: No Status: Chronic - Plan 1. Serial troponins and EKG 2. Medication for musculoskeletal pain 3. Recent cardiac workup was unremarkable except for some minimal plaquing. 4. At this time will continue with anti-platelet therapy and beta tierney but also will give her medication for pain controlled and inflammation. Will await chest x-ray report and possible discharge home in the morning. Discharge Plan: Home Plan to discharge in: 24 Hours - Advance Directives Does patient have a Living Will: No Does patient have a Durable POA for Healthcare: No - Code Status/Comfort Care Code Status Assessed: Yes Code Status: Full Code Critical Care: No Time Spent Managing PTS Care (In Minutes): 50
[2017-12-22] MEDS ORDERED: METHYLPREDNISOLONE 125 MG INJ IV SCH (06:00)
--- NOTE | 2017-12-22 06:40 | EKG ---
Test Date: 2017-12-21 Test Time: 20:15:44 Rouge Miller: MARYAM MEASUREMENT RESULTS: Intervals: Rate: 89 DC: 134 QRSD: 68 QT: 378 QTc: 459 [place]: P: 68 DC: 134 QRS: 27 T: 73 INTERPRETIVE STATEMENTS: Normal sinus rhythm Cannot rule out Anterior infarct, age undetermined Abnormal ECG Compared to ECG 08/05/2017 17:21:25 Myocardial infarct finding now present Electronically Signed On 12-22-17 06:39:55 CDT by Souleymane Julio
[2017-12-22] MEDS ORDERED: Morphine 2 MG/2 ML SYR IV PRN (08:02)
[2017-12-22 08:43] LABS: Albumin 2.1 g/dL (3.2-5.5); Bilirubin Total 0.7 mg/dL (0.3-1.2); Magnesium 1.7 mg/dL (1.8-2.5); Phosphorus 3.8 mg/dL (2.5-4.3)
[2017-12-22 08:45] LABS: Thyroid Stimulating Hormone 5.5 uIU/mL (0.34-5.60)
[2017-12-22] MEDS ORDERED: ASPIRIN EC 81 MG TAB PO SCH (09:00)
[2017-12-22] MEDS ORDERED: ASPIRIN 325 MG TAB PO SCH (09:00)
[2017-12-22] MEDS ORDERED: ENOXAPARIN 30 MG/0.3 ML SQ SCH (09:00)
[2017-12-22] MEDS ORDERED: METOPROLOL TAR 50 MG TAB PO SCH (09:00)
[2017-12-22] MEDS ORDERED: ENOXAPARIN 40 MG/0.4 ML SQ SCH (09:00)
[2017-12-22 09:43] LABS: A1c Component 0.98 mg/dL; Hemoglobin A1c 9.6 % (4-6.0)
--- NOTE | 2017-12-22 11:55 | EKG ---
Test Date: 2017-12-22 Test Time: 09:05:37 Education Sales Consultant: JAZMYN MEASUREMENT RESULTS: Intervals: Rate: 80 CT: 140 QRSD: 70 QT: 412 QTc: 475 [place]: P: 63 CT: 140 QRS: 29 T: 73 INTERPRETIVE STATEMENTS: Normal sinus rhythm Normal ECG Compared to ECG 12/21/2017 20:15:44 Myocardial infarct finding no longer present Electronically Signed On 12-22-17 11:54:01 CDT by Elder Tejeda
[2017-12-22 12:17] VITALS: BP 163/83; TEMP 98.2
--- NOTE | 2017-12-23 07:52 | ECHO ---
HEIGHT: 5 ft 4 in WEIGHT: 177 lb 1 oz DATE OF STUDY: 12/22/[address]: Everett Chan MD 2-DIMENSIONAL: YES M.MODE: YES DOPPLER: YES COLOR FLOW: YES TDS: NO PORTABLE: NO DEFINITY: NO BUBBLE STUDY: NO DIAGNOSIS: CHEST PAIN CARDIAC HISTORY: CATHERIZATION: NO SURGERY: NO PROSTHETIC VALVE: NO PACEMAKER: NO MEASUREMENTS (cm) DIASTOLIC (NORMALS) SYSTOLIC (NORMALS) IVSd 1.0 (0.6-1.2) LA Diam 3.3 (1.9-4.0) LVEF 67% LVIDd 3.1 (3.5-5.7) LVIDs 2.0 (2.0-3.5) %FS 36% LVPWd 1.0 (0.6-1.2) Ao Diam 2.3 (2.0-3.7) 2 DIMENSIONAL ASSESSMENT: RIGHT ATRIUM: NORMAL LEFT ATRIUM: NORMAL RIGHT VENTRICLE: NORMAL LEFT VENTRICLE: NORMAL TRICUSPID VALVE: NORMAL MITRAL VALVE: NORMAL PULMONIC VALVE: NORMAL AORTIC VALVE: MILD SCLEROSIS PERICARDIAL EFFUSION: NONE AORTIC ROOT: NORMAL LEFT VENTRICULAR WALL MOTION: NORMAL. DOPPLER/COLOR FLOW: IMPAIRED LEFT VENTRICULAR RELAXATION. NO AORTIC STENOSIS OR AORTIC REGURGITATION. COMMENTS: NORMAL LEFT VENTRICULAR EJECTION FRACTION. AORTIC SCLEROSIS WITH NO AORTIC STENOSIS/AORTIC REGURGITATION. IMPAIRED LEFT VENTRICULAR RELAXATION. TECHNOLOGIST: JEFFREY ROSSI
--- NOTE | 2017-12-23 11:37 | CON ---
Date of Consultation: 12/22/[address] Escalera on 12/21/2017. Reason For Consultation: I saw the patient on 12/22/2017 for chest pain. History Of Present Illness: Ms. Woo is a 42-year-old woman, who came in with chest pain. She had a normal heart catheterization in July 2017. Came in with mid-epigastric pain radiating to the b ack, worse with eating. No nausea, vomiting, diaphoresis, PND, orthopnea, pedal edema, palpitations, or syncope. She had a creatinine of 1.86, white count of 11,000. Her blood glucose level was 361. Troponin, CPKs, and MBs were negative. Past Medical History: Otherwise unremarkable except for diabetes with diabetic gastroparesis. There was some plan to do a GI workup, likely surgery by Dr. Martinez. Phone number is in [place]. Allergies: NONE. Review of Systems: Negative. Social History: Negative. Family History: Negative. Medications: Listed by Dr. Escalera. Physical Examination: General: She was pleasant and joking about her gastric issue. No acute distress. Vital Signs: Stable, afebrile. HEENT: Negative. Neck: Supple with no bruit. Chest: Clear. Cardiac: Normal. Abdomen: Benign. Extremities: Revealed no clubbing, cyanosis, or edema. Diagnostic Data: As stated above. EKG is normal. Echocardiogram, which was done today was normal. Impression And Plan: 1.Atypical chest pain, most likely related to gastroparesis or gastroesophageal reflux disease. 2.Diabetes, poorly controlled. 3.Renal insufficiency. 4.Recent heart catheterization that is normal. I would feel comfortable with her going home followi ng up with her GI specialist and Dr. Escalera as an outpatient. No further cardiac workup indica darian at this point. SHERIF/ANTONIOL Voice ID: [id number] Report ID: [id number]
== END 2017-12-22 13:35 | disposition home or self-care (01) ==
LOC: ER 20:06 → ERHOLD 21:56 → 2ND 23:03
PROVIDERS: ADMIT Hospitalist; ATTEND Hospitalist
DX: M94.0 Chondrocostal junction syndrome [Tietze] (principal); I12.9 Hypertensive chronic kidney disease with stage 1 through stage 4 chronic kidney disease, or unspecified chronic kidney disease; E11.22 Type 2 diabetes mellitus with diabetic chronic kidney disease; N18.9 Chronic kidney disease, unspecified; E78.5 Hyperlipidemia, unspecified; F41.8 Other specified anxiety disorders; H54.8 Legal blindness, as defined in USA; Z85.850 Personal history of malignant neoplasm of thyroid; F17.210 Nicotine dependence, cigarettes, uncomplicated
CPT/HCPCS: 36415; 71045; 80048; 80053; 80061; 82962 ×2; 83036; 83735; 84100; 84439; 84443; 84484 ×2; 85025; 85610; 93005 ×2; 93306; 96374; 96375; 99285; G0378 ×2; J1650; J2405 ×4; J2930; J3010

== ENCOUNTER 2018-02-01 08:06 | Emergency (ER) | payer OTHER ==
--- OUTSIDE RECORDS SUMMARY | 2018-02-01 08:19 | XMS REPORT | Clinical Summary ---
:1975 Author Organization [facility] Address [address] [place] [address] Phone Care Team Providers Name Role Phone [...] 03/20/2017 Gastroparesis 03/19/2017 DELMA (acute kidney injury) ([facility]) 03/16/2017 Acute metabolic encephalopathy 03/16/2017 Cerebrovascular accident (CVA) due to embolism of left middle cerebral 2016 artery ([facility]) Hypothyroidism 03/15/2017 Diabetes mellitus ([facility]) 03/15/2017 Depression 03/15/2017 Anxiety 03/15/2017 GERD (gastroesophageal reflux disease) 03/15/2017 COPD (chronic obstructive pulmonary disease) ([facility]) 03/15/2017 Chronic renal disease 03/15/2017 Hyperlipidemia 03/15/2017 History of thyroid cancer 03/15/2017 Blind 03/15/2017 Tobacco abuse 03/15/2017 Diabetic retinopathy ([facility]) 03/15/2017 Diabetic nephropathy ([facility]) 03/15/2017 Resolved Problems Problem Noted Date Resolved Date Aphasia 03/14/2017 03/15/2017 Encounters Date Type Specialty Care Team Description 03/14/2017 - [facility] [place] Acute 03/20/2017 Medicine MD Dillon encephalopathy;Edison Adams Rahul ent cerebral MD Yady ischemia, unspecified Alessandro, type;DELMA (acute Albert Giovani, kidney injury) ([facility]);Cerebrovascular 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 ([facility]);Diabetic nephropathy associated with diabetes mellitus due to underlying condition ([facility]);Stable proliferative diabetic retinopathy associated with diabetes mellitus due to underlying condition, unspecified laterality ([facility]) after 01/31/2017 Family History Medical History Relation Name Comments [...] Range POC-Glucose Meter 200 (H)Comment: TESTED AT [address] 70 - 110 mg/[place] [address] Specimen Performing Laboratory Blood [address] [address] Protein, random urine (03/19/2017 5:39 PM) Component Value Ref Range Protein, Urine 286 (H) 0 - 14 mg/dL Specimen Performing Laboratory Urine - Urine, Voided [address] [address] Creatinine, random urine (03/19/2017 5:39 PM)Only the most recent of2 resultswithin the time period is included. Component Value Ref Range Creatinine, Ur 29.3 mg/dL Specimen Performing Laboratory Urine - Urine, Voided [address] [address] Narrative Reference Range: No Normals ECG 12 lead (03/19/2017 3:16 PM) Specimen Performing Laboratory [facility] Narrative Ventricular Rate 81 BPM Atrial Rate 81 BPM P-R Interval 126 ms QRS Duration 76 ms Q-T Interval 408 ms QTC Calculation(Bazett) 473 ms P Orr 70 degrees R Orr -6 degrees T Orr 61 degrees Normal sinus rhythm Normal ECG No previous ECGs available Confirmed by MD PRIYA, JOHNSON ([id number]) on 03/20/2017 2:15:50 PM Procedure Note Interface, External Ris In - 03/20/2017 2:15 PM CDT Ventricular Rate 81 BPM Atrial Rate 81 BPM P-R Interval 126 ms QRS Duration 76 ms Q-T Interval 408 ms QTC Calculation(Bazett) 473 ms P Orr 70 degrees R Orr -6 degrees T Orr 61 degrees Normal sinus rhythm Normal ECG No previous ECGs available Confirmed by MD PRIYA, JOHNSON ([id number]) on 03/20/2017 2:15:50 PM 2D Echo W/Doppler(CW/PW/Color) (03/19/2017 12:40 PM) Component Value Ref Range Ejection Fraction LV EF 64.5 % (55-75) Index 31.6 %/m2 Specimen Performing Laboratory [facility] Echocardiography Laboratory [address] [place] [address] Voice:[phone] Transthoracic Echocardiogram Pat.Name:ARCHANA WOO Pat.ID:[id number] St.Date: 03/19/2017 Refer.MD:JOSE ADAMS Exam Time: 12:40:00 PM Study Type:Echo Complete Height:64inWeight: 220lb BSA: 2.04 m2 DOBAge:1975,41Y Sex: FEMALEBP:170/74 HR:81 bpmSonogrphr: Erika Wheatley [facility] Pat. Stat.:Inpatient Room:224 Reason for Study:Suspected Cardiac [...] ml/m2 LA Area 15 cm2(8.8-23.4) Parasternal Long Orr Ao An 1.98 cm (1.4-2.6) LV%fs 42.5 [...] 03/19/2017 4:06 PM CDT Echocardiography Laboratory [address] [place] [address] Voice: [phone] Transthoracic Echocardiogram Pat.Name: ARCHANA WOO Pat.ID: [id number] .Date: 03/19/2017 Refer.MD: JOSE ADAMS Exam Time: 12:40:00 PM Study Type:Echo Complete Height: 64in Weight: 220lb BSA: 2.04 m2 Age: 2 1975,41Y Sex: FEMALE BP: 170/74 HR: 81 bpm Sonogrphr: Erika Wheatley [facility] Pat. Stat.:Inpatient Room: [facility] Reason for Study:Suspected Cardiac Source of Emboli [...] LA Area 15 cm2 (8.8-23.4) Parasternal Long Orr Ao An 1.98 cm (1.4-2.6) LV%fs 42.5 [...] 1 % Specimen Performing Laboratory Blood [facility] [address] [address] Vitamin D, 25-Hydroxy (03/19/2017 4:56 AM) Component Value Ref Range Vitamin D 25-Hydroxy <13.0 (L) 13.0 - 47.8 ng/mL Specimen Performing Laboratory Blood [address] [address] CBC with platelet count + automated diff (03/19/2017 4:56 AM)Only the most recent of5 resultswithin the time period is included. Specimen Performing Laboratory Blood Narrative The following orders were created for panel order CBC with platelet count + automated diff. Procedure Abnormality Status --------- ------ CBC with platelet count ...[[id number]]AbnormalFinal result Please view results for these tests on the individual orders. Phosphorus (03/19/2017 4:56 AM) Component Value Ref Range Phosphorus 4.1 2.3 - 4.7 mg/dL Specimen Performing Laboratory Blood [address] [address] PTH, intact (03/19/2017 4:56 AM) Component Value Ref Range PTH 57.2 8.5 - 72.5 pg/mL Specimen Performing Laboratory Blood [address] [address] Narrative Effective 07/04/2014: Reference Range Change New: 8.5-72.5 Previous: 15.0-90.0 Magnesium (03/19/2017 4:56 AM) Component Value Ref Range Magnesium 1.7 1.6 - 2.6 mg/dL Specimen Performing Laboratory Blood [address] [address] Basic Metabolic Panel (03/19/2017 4:56 AM)Only the [...] DIALYSIS PATIENTS. Specimen Performing Laboratory Blood [facility] [address] [place] [address] MRA neck without IV contrast (03/18/2017 9:10 PM) Specimen Performing Laboratory [facility] Narrative FINAL REPORT MRA Head CLINICAL HISTORY: acute stroke Episode of Care: Initial TECHNIQUE: MRA of the head utilizing 3-D ttfl-wv-etukvu technique, with 3-D reconstructions. COMPARISON: None FINDINGS: There is no evidence for a [place] proximal branch vessel occlusion. There is moderate stenosis of the right internal carotid artery siphon. There are bilateral posterior communicating arteries. IMPRESSION: No evidence for a major [place] proximal branch vessel occlusion. MRA Neck CLINICAL HISTORY: acute stroke Episode of Care: Initial TECHNIQUE: MRA of the neck utilizing 2-D and 3-D llli-qu-ghocci technique, with 3-D reconstructions. COMPARISON: None FINDINGS: The carotid arteries in the neck are patent including their bifurcations. There is antegrade flow in the vertebral arteries in the neck. IMPRESSION: No evidence of hemodynamically significant stenosis in the cervical carotid or vertebral arteries by NASCET criteria. Signed: Marychuy Bueno MD Report Verified Date/Time:03/18/2017 21:14:56 Reading Location: [facility] Radiology Reading Room Procedure Note Interface, External Ris In - 03/19/2017 6:01 AM CDT FINAL REPORT MRA Head CLINICAL HISTORY: acute stroke Episode of Care: Initial TECHNIQUE: MRA of the head utilizing 3-D eont-nz-lwvhat technique, with 3-D reconstructions. COMPARISON: None FINDINGS: There is no evidence for a [place] proximal branch vessel occlusion. There is moderate stenosis of the right internal carotid artery siphon. There are bilateral posterior communicating arteries. IMPRESSION: No evidence for a major [place] proximal branch vessel occlusion. MRA Neck CLINICAL HISTORY: acute stroke Episode of Care: Initial TECHNIQUE: MRA of the neck utilizing 2-D and 3-D dxgq-mg-uptlgc technique, with 3-D reconstructions. COMPARISON: None FINDINGS: The carotid arteries in the neck are patent including their bifurcations. There is antegrade flow in the vertebral arteries in the neck. IMPRESSION: No evidence of hemodynamically significant stenosis in the cervical carotid or vertebral arteries by NASCET criteria. Signed: Marychuy Bueno MD Report Verified Date/Time: 03/18/2017 21:14:56 Reading Location: [facility] Radiology Reading Room head without IV contrast (03/18/2017 9:10 PM) Specimen Performing Laboratory [facility] Narrative FINAL REPORT MRA Head CLINICAL HISTORY: acute stroke Episode of Care: Initial TECHNIQUE: MRA of the head utilizing 3-D ewxu-fh-hmwbmi technique, with 3-D reconstructions. COMPARISON: None FINDINGS: There is no evidence for a [place] proximal branch vessel occlusion. There is moderate stenosis of the right internal carotid artery siphon. There are bilateral posterior communicating arteries. IMPRESSION: No evidence for a major [place] proximal branch vessel occlusion. MRA Neck CLINICAL HISTORY: acute stroke Episode of Care: Initial TECHNIQUE: MRA of the neck utilizing 2-D and 3-D vhxv-hf-lzdsxi technique, with 3-D reconstructions. COMPARISON: None FINDINGS: The carotid arteries in the neck are patent including their bifurcations. There is antegrade flow in the vertebral arteries in the neck. IMPRESSION: No evidence of hemodynamically significant stenosis in the cervical carotid or vertebral arteries by NASCET criteria. Signed: Marychuy Bueno MD Report Verified Date/Time:03/18/2017 21:14:56 Reading Location: [facility] Radiology Reading Room Procedure Note Interface, External Ris In - 03/19/2017 6:01 AM CDT FINAL REPORT MRA Head CLINICAL HISTORY: acute stroke Episode of Care: Initial TECHNIQUE: MRA of the head utilizing 3-D zgsx-an-kipemx technique, with 3-D reconstructions. COMPARISON: None FINDINGS: There is no evidence for a [place] proximal branch vessel occlusion. There is moderate stenosis of the right internal carotid artery siphon. There are bilateral posterior communicating arteries. IMPRESSION: No evidence for a major [place] proximal branch vessel occlusion. MRA Neck CLINICAL HISTORY: acute stroke Episode of Care: Initial TECHNIQUE: MRA of the neck utilizing 2-D and 3-D qpjs-bw-bgxhdv technique, with 3-D reconstructions. COMPARISON: None FINDINGS: The carotid arteries in the neck are patent including their bifurcations. There is antegrade flow in the vertebral arteries in the neck. IMPRESSION: No evidence of hemodynamically significant stenosis in the cervical carotid or vertebral arteries by NASCET criteria. Signed: Marychuy Bueno MD Report Verified Date/Time: 03/18/2017 21:14:56 Reading Location: [facility] Radiology Reading Room renal complete (03/18/2017 5:46 AM) Specimen Performing Laboratory [employer] [facility] Narrative FINAL REPORT Ultrasound of the Kidneys [...] MD Report Verified Date/Time:03/18/2017 09:00:51 Reading Location: [facility] P006 Ultrasound Reading Room Procedure Note Interface, [...] Report Verified Date/Time: 03/18/2017 09:00:51 Reading Location: [facility] P006J Ultrasound Reading Room Hexagonal Phospholipid (03/18/2017 4:21 AM) Component Value Ref Range Hexagonal Phospholipid Negative Specimen Performing Laboratory Blood [facility] [address] [address] BETA2 GLYCOPROTE I AB,IGM (03/18/2017 4:21 AM) Component Value Ref Range B2-Glycoprotein Igm <9 < OR=20 [facility] Specimen Performing Laboratory Blood [facility] [employer] [address] [address] Narrative Performing Lab [facility] [employer] [address] [address] Asuncion Reddy MD BETA2 GLYCOPROTE I AB,IGA [...] more information on this test, go to: [email or web address]/[email or web address] Specimen Performing Laboratory [facility] [employer] [address] Narrative Performing Lab [facility] [employer] [address] [address] Asuncion Reddy MD BETA2 GLYCOPROTE I AB,IGG (03/18/2017 4:21 AM) Component Value Ref Range B2-Glycoprotein I (IgG) Ab <9 < OR=20 [facility] Specimen Performing Laboratory Blood [facility] [address] [address] Narrative Performing Lab [facility] [address] [address] Asuncion Reddy MD Phosphatidylserine Abs (IgG, IgM) [...] more information on this test, go to: http://education.TruHearing/faq/PWR145 Specimen Performing Laboratory Blood [facility] [address] [address] Narrative Performing Lab [facility] [address] [address] Asuncion Reddy MD Beta-2 glycoprotein antibodies (03/18/2017 4:21 AM) Component Value Ref Range B2 Glcoprotein Ab Profile Refer to individual B2-Glycoprotein IgG, IgM and IgA results. Specimen Performing Laboratory Blood [facility] [address] [address] Protein S activity (03/18/2017 4:21 AM) Component [...] Specimen Performing Laboratory Blood [facility] [address] [place] [address] Narrative Performing Lab [facility] [address] [place] [address] Asuncion Reddy MD Protein C activity (03/18/2017 4:21 AM) Component Value Ref Range Protein C Activity 155.0 (H) 70.0 - 130.0 % Specimen Performing [place] [address] Narrative Effective 12/20/2013: Reference Range Change-Adult only New: 70.0-130.0 Previous: 70.0-140.0 See Protein C Antigen. Cardiolipin Antibodies, IgG and IgM (03/18/2017 4:21 AM) Component Value Ref Range Anticardiolipin IgG <1.6 GPL Anticardiolipin IgM 2.8 MPL Specimen Performing [place] [address] Narrative Anticardiolipin IgG Result Interpretation: NEG:<20 GPL;U/ml POS:>/=20 GPL;U/ml Anticardiolipin IgM Result Interpretation: NEG:<20 MPL;U/ml POS:>/=20 MPL;U/ml Factor 5 Leiden PCR (thrombotic risk) (03/18/2017 4:21 AM) Component Value Ref Range Factor V Leiden Negative for the R506Q (Factor V Leiden) mutation Pathologist: Martínez Wang MD (electronic signature) Specimen Performing [place] [address] Narrative This test is a genotyping assay [...] and its performance characteristics determined by the [facility] Pathology Department, Section of Molecular Pathology. It [...] Ratio 0.84 <1.20 Specimen Performing [place] [address] Narrative Effective 12/20/2013: Test Method Change DRVV Screen Ratio, DRVV 1/1 Screen Ratio, DRVV Confirm Ratio, DRVV Normalized Ratio Reference Range: <1.2 Protime Reference Range Change New: 11.7-14.7Previous: 9.8-12.0 PTT Reference Range Change New: 22.5-36.0Previous: 25.8-34.5 Antithrombin III (03/18/2017 4:21 AM) Component Value Ref Range Antithrombin III 87.0 80.0 - 120.0 % Specimen Performing Laboratory Blood [address] [address] Narrative Effective 12/20/2013: Reference Range Change-Adult only New: 80.0-120.0 Previous: 90.0-128.0 Anti-Nuclear Antibody (MARY) (03/18/2017 4:21 AM) Component Value Ref Range MARY Negative Negative Specimen Performing Laboratory Blood [address] [address] Microalbumin, random urine (03/17/2017 4:51 PM) Component Value Ref Range Microalbumin, Urine >200.0 mg/dL Specimen Performing Laboratory Urine - Urine, Voided [address] [address] Narrative Reference Range: No Normals Sodium, random urine (03/17/2017 4:51 PM) Component Value Ref Range Sodium Urine 63 meq/L Specimen Performing Laboratory Urine - Urine, Voided [address] [address] Narrative Reference Range: No Normals Screen, urine (03/17/2017 4:51 PM) Component Value Ref Range Preg Test, Ur Negative Specimen Performing Laboratory Urine - Urine, Voided [address] [address] Urinalysis w/Microscopic (03/17/2017 4:51 PM) Component Value Ref Range Color, UA Light Yellow Clarity, UA Clear Specific [place], UA 1.005 1.001 - 1.035 pH, UA [...] Voided Specimen Performing Laboratory Urine - Urine, Void[address] [address] Urine culture (03/17/2017 4:51 PM) Component Value Ref Range Result 20-29,000 col/mL skin lei Specimen Performing Laboratory Urine - Urine, Voided [address] [address] MR brain without IV contrast (03/17/2017 3:32 PM) Specimen Performing Laboratory [employer] Narrative FINAL REPORT MRI Brain without contrast [...] MD Report Verified Date/Time:03/17/2017 15:33:57 Reading Location: [facility] [place], [facility] Reading Room Procedure Note Interface, External Ris [...] Report Verified Date/Time: 03/17/2017 15:33:57 Reading Location: [facility] [place] Reading Room Manual Differential (03/15/2017 7:54 AM) Component Value Ref Range Total Counted WBC Morphology Normal Platelet Morphology Normal RBC Morphology Normal Specimen Performing Laboratory Blood - Arm, [address] [address] TSH/Free T4 If Indicated (03/15/2017 7:54 AM) Component Value Ref Range TSH 1.08 0.35 - 4.94 uIU/mL Specimen Performing Laboratory Blood - Arm, [address] [address] RPR (03/15/2017 7:54 AM) Component Value Ref Range RPR Nonreactive Nonreactive Specimen Performing Laboratory Blood - Arm, [address] [address] Sedimentation rate (03/15/2017 7:54 AM) Component Value Ref Range Sed Rate 79 (H) 0 - 20 mm/HR Specimen Performing Laboratory Blood - Arm, [address] [address] Hemoglobin A1c (03/15/2017 7:54 AM) Component Value Ref Range Hemoglobin A1C 9.8 (H) 4.3 - 6.1 % Specimen Performing Laboratory Blood - Arm, [address] [address] Vitamin B12 (03/15/2017 7:54 AM) Component Value Ref Range Vitamin B12 1790 (H) 213 - 816 pg/mL Specimen Performing Laboratory Blood - Arm, [address] [address] Fasting lipid panel (03/15/2017 7:54 AM) Component Value Ref Range Triglycerides 90 mg/dL Cholesterol 143 mg/dL HDL 44 mg/dL LDL Calculated 81 mg/dL Specimen Performing Laboratory Blood - Arm, [address] [address] Narrative Triglyceride Reference Range: Low Risk <150 [id number] High Risk 200-499 Very High Risk>=500 Cholesterol Reference Range: Low Risk <200 [id number] High Risk>240 HDL Cholesterol Reference Range: Low Risk >=60 High Risk <40 LDL Cholesterol Reference Range: Optimal<100 Near [id number] Ypcubpojdk535-438 Kiie480-253 Very High >=[address] brain without [...] MD Report Verified Date/Time:03/15/2017 03:47:01 Reading Location: [address] Ortho Consult Reading Room Procedure Note [...] Report Verified Date/Time: 03/15/2017 03:47:01 Reading Location: [facility] C013X Ortho Consult Reading Room hCG, quantitative, (03/15/2017 12:22 AM) Component Value Ref Range hCG Quant <1 0 - 10 mIU/mL Specimen Performing [place] [address] Narrative Non- Females: <10 mIU/mL Females: Gestation AgeReference Range(mIU/mL) 0.2-1 Week5-50 1-2 [id number] 2-3 Weeks 100-5,000 3-4 Weeks 500-10,000 4-5 Weeks 1,000-50,000 5-6 Weeks10,000-100,000 6-8 Weeks15,000-200,000 2-3 Months 10,000-100,000 EEG AWAKE AND DROWSY (03/14/2017 11:25 PM) Specimen Performing Laboratory [facility] Narrative DATE OF REPORT: 03/14/17 ACC: [id number] Start time: 23:04 Stop time: 23:25 [...] PM CDT DATE OF REPORT: 03/14/17 ACC: [id number] Start time: 23:04 Stop time: 23:25 [...] ESTIMATED GFR. Specimen Performing Laboratory Blood [facility] [address] [address] Narrative Unit Collect after 01/31/2017
--- OUTSIDE RECORDS SUMMARY | 2018-02-01 08:20 | XMS REPORT ---
:1975 [facility] Address [address] [place] [address] Dr. Soto [address] [place] [id number] Care Team Providers Name Role Phone ARON [...] Range Comments FACTOR V LEIDEN (BEAKER) (test mmjp=540) Negative for the R506Q (Factor V Leiden) mutation [id number] (BEAKER) (test Martínez Wang MD (electronic signature) pudl=5366) This test is a genotyping assay which [...] [facility]. It has not been cleared or approved by the U.S. Food and Drug Administration (FDA), since FDA approval is not required for clinical use of the test. Validation was done as required by the Clinical Laboratory Improvement Amendments of 1988.POCT-GLUCOSE [id number] 07:28:00 Test Item Value Reference Range Comments POC-GLUCOSE METER (BEAKER) 200 mg/dL 70-110 TESTED AT [facility] [address] [facility] (test wsxh=4917) [facility] [address] POCT-GLUCOSE [id number] 21:18:00 Test Item Value Reference Range Comments POC-GLUCOSE METER (BEAKER) 211 mg/dL 70-110 TESTED AT [facility] [address] [place] [address] (test gosw=7452) [facility] [address] PROTEIN, RANDOM [id number] 19:43:00 Test Item Value Reference Range Comments PROTEIN, URINE (BEAKER) (test xzpu=7380) 286 mg/dL 0-14 CREATININE, RANDOM [id number] 18:27:00 Test Item Value Reference Range Comments CREATININE URINE (BEAKER) (test sfjb=004) 29.3 mg/dL Reference Range: No NormalsDILUTE SHIRA VIPER VENOM (DRVV)2017-03-19 12:47:00 Test Item Value Reference Range Comments PROTIME (BEAKER) (test 11.3 seconds 11.7-14.7 cpac=454) INR (BEAKER) (test tpcw=024) 0.8 <=5.9 PARTIAL THROMBOPLASTIN TIME 28.0 seconds 22.5-36.0 (BEAKER) (test fctk=095) DRVV INTERPRETATION (BEAKER) Normal DRVV Results (test mdtf=2014) DRVV INTERPRETATION (BEAKER) Normal Hexagonal Phospholipid (test afjk=263280) [id number] (BEAKER) Martínez Wang MD (electronic (test yqxp=5310) signature) DRVV SCREEN RATIO (BEAKER) 0.84 <1.20 (test yluv=4377) Effective 12/20/2013: Test Method ChangeDRVV Screen Ratio, DRVV 1/1 Screen Ratio, DRVV Confirm Ratio,DRVV Normalized Ratio Reference Range: <1.2Protime Reference Range ChangeNew: 11.7-14.7 Previous: 9.8-12.0PTT Reference Range ChangeNew: 22.5-36.0 Previous: 25.8-34.5URINE [id number] 11:40:00 Test Item Value Reference Range Comments CULTURE (BEAKER) (test 20-29,000 col/mL skin lei iymo=8219) POCT-GLUCOSE [id number] 08:33:00 Test Item Value Reference Range Comments POC-GLUCOSE METER (BEAKER) 293 mg/dL 70-110 TESTED AT [facility] [address] [facility] (test iero=1901) [facility] [address] VITAMIN D, [id number] 07:49:00 Test Item Value Reference Range Comments VITAMIN D 25-OH (BEAKER) (test ixnl=7449) < ng/mL 13.0-47.8 CBC W/PLT COUNT & AUTO [id number] 05:59:00 Test Item Value Reference Range Comments WHITE BLOOD CELL COUNT (BEAKER) (test cmny=663) 9.4 K/ L 3.5-10.5 RED BLOOD CELL COUNT (BEAKER) (test uwfa=271) 4.16 M/ L 3.93-5.22 HEMOGLOBIN (BEAKER) (test cicg=206) 12.7 GM/DL 11.2-15.7 HEMATOCRIT (BEAKER) (test cizm=960) 38.0 % 34.1-44.9 MEAN CORPUSCULAR VOLUME (BEAKER) (test wczi=094) 91.3 fL 79.4-94.8 MEAN CORPUSCULAR HEMOGLOBIN (BEAKER) (test 30.5 pg 25.6-32.2 agpg=854) MEAN CORPUSCULAR HEMOGLOBIN CONC (BEAKER) (test 33.4 GM/DL 32.2-35.5 erwk=486) RED CELL DISTRIBUTION WIDTH (BEAKER) (test 12.6 % 11.7-14.4 uwlt=785) PLATELET COUNT (BEAKER) (test znfa=811) 329 K/CU MM 150-450 MEAN PLATELET VOLUME (BEAKER) (test lain=097) 10.0 fL 9.4-12.3 NUCLEATED RED BLOOD CELLS (BEAKER) (test 0 /100 WBC 0-0 pmoe=172) NEUTROPHILS RELATIVE PERCENT (BEAKER) (test 68 % zlww=341) LYMPHOCYTES RELATIVE PERCENT (BEAKER) (test 23 % pgcl=018) MONOCYTES RELATIVE PERCENT (BEAKER) (test 7 % xyyn=781) EOSINOPHILS RELATIVE PERCENT (BEAKER) (test 1 % pass=796) BASOPHILS RELATIVE PERCENT (BEAKER) (test 1 % gsui=051) NEUTROPHILS ABSOLUTE COUNT (BEAKER) (test 6.35 K/ L 1.56-6.13 hjdy=077) LYMPHOCYTES ABSOLUTE COUNT (BEAKER) (test 2.16 K/ L 1.18-3.74 zkhn=620) MONOCYTES ABSOLUTE COUNT (BEAKER) (test 0.68 K/ L 0.24-0.36 dbzr=006) EOSINOPHILS ABSOLUTE COUNT (BEAKER) (test 0.10 K/ L 0.04-0.36 ucij=767) BASOPHILS ABSOLUTE COUNT (BEAKER) (test 0.06 K/ L 0.01-0.08 dvev=136) IMMATURE GRANULOCYTES-RELATIVE PERCENT (BEAKER) 0 % 0-1 (test vjng=9293) BASIC METABOLIC [id number] 05:38:00 Test Item Value Reference Range Comments SODIUM (BEAKER) (test 135 meq/L 136-145 gmwu=908) POTASSIUM (BEAKER) (test 4.1 meq/L 3.5-5.1 gbpv=290) CHLORIDE (BEAKER) (test 102 meq/L 98-107 smfq=802) CO2 (BEAKER) (test 25 meq/L 22-29 rxuk=242) BLOOD UREA NITROGEN 12 mg/dL 7-21 (BEAKER) (test ppxa=365) CREATININE (BEAKER) (test 1.99 mg/dL 0.57-1.25 tifs=822) GLUCOSE RANDOM (BEAKER) 290 mg/dL 70-105 (test rzds=604) CALCIUM (BEAKER) (test 8.7 mg/dL 8.4-10.2 kyiy=377) EGFR (BEAKER) (test 27 mL/min/1.73 sq m ESTIMATED GFR IS NOT flup=8384) ACCURATE CREATININE CLEARANCE IN PREDICTING GLOMERULAR FILTRATION RATE. ESTIMATED GFR IS NOT APPLICABLE FOR DIALYSIS PATIENTS. [id number] 05:37:00 Test Item Value Reference Range Comments PHOSPHORUS (BEAKER) (test dogf=152) 4.1 mg/dL 2.3-4.7 [id number] 05:37:00 Test Item Value Reference Range Comments MAGNESIUM (BEAKER) (test dcbu=630) 1.7 mg/dL 1.6-2.6 PTH, [id number] 05:34:00 Test Item Value Reference Range Comments PARATHYROID HORMONE INTACT (BEAKER) (test 57.2 pg/mL 8.5-72.5 dcjd=760) Effective 07/04/2014: Reference Range ChangeNew: 8.5-72.5 Previous: 15.0- 90.0CARDIOLIPIN ANTIBODIES, IGG AND [id number] 22:36:00 Test Item Value Reference Range Comments ANTICARDIOLIPIN IGG ANTIBODY (BEAKER) (test < GPL pboo=744) ANTICARDIOLIPIN IGM ANTIBODY (BEAKER) (test 2.8 MPL zxkf=055) Anticardiolipin IgG Result Interpretation:NEG: <20 GPL; U/mlPOS: >/=20 GPL; U/mlAnticardiolipin IgM Result Interpretation:NEG: <20 MPL; U/mlPOS: >/=20 MPL; U/mlPOCT-GLUCOSE [id number] 21:25:00 Test Item Value Reference Range Comments POC-GLUCOSE METER (BEAKER) 198 mg/dL 70-110 TESTED AT [address] (test eoif=0260) [facility] [address] POCT-GLUCOSE [id number] 16:29:00 Test Item Value Reference Range Comments POC-GLUCOSE METER (BEAKER) 296 mg/dL 70-110 TESTED AT [address] (test vtyt=9178) [place] [address] ANTI-NUCLEAR ANTIBODY (MARY)2017-03-18 15:30:00 Test Item Value Reference Range Comments ANTI-NUCLEAR ANTIBODY (MARY) (BEAKER) (test Negative Negative orax=969) HEXAGONAL [id number] 13:21:00 Test Item Value Reference Range Comments HEXAGONAL PHOSPHOLIPID (BEAKER) (test lrzj=7786) Negative POCT-GLUCOSE [id number] 12:15:00 Test Item Value Reference Range Comments POC-GLUCOSE METER (BEAKER) 140 mg/dL 70-110 TESTED AT [address] (test fmlq=8278) [facility] [address] PROTEIN C [id number] 11:44:00 Test Item Value Reference Range Comments PROTEIN C ACTIVITY (BEAKER) (test uugj=270) 155.0 % 70.0-130.0 Effective 12/20/2013: Reference Range Change-Adult onlyNew: 70.0-130.0 Previous : 70.0-140.0See Protein C Antigen.ANTITHROMBIN [id number] 11:43:00 Test Item Value Reference Range Comments ANTITHROMBIN III ACTIVITY (BEAKER) (test jqsj=314) 87.0 % 80.0-120.0 Effective 12/20/2013: Reference Range Change-Adult onlyNew: 80.0-120.0 Previous : 90.0-128.0POCT-GLUCOSE [id number] 08:17:00 Test Item Value Reference Range Comments POC-GLUCOSE METER (BEAKER) 107 mg/dL 70-110 TESTED AT [facility] [address] (test jial=7359) [facility] [address] BASIC METABOLIC [id number] 06:32:00 Test Item Value Reference Range Comments SODIUM (BEAKER) (test 136 meq/L 136-145 vtzi=489) POTASSIUM (BEAKER) (test 3.6 meq/L 3.5-5.1 fsec=618) CHLORIDE (BEAKER) (test 104 meq/L 98-107 rowo=080) CO2 (BEAKER) (test 23 meq/L 22-29 acit=133) BLOOD UREA NITROGEN 11 mg/dL 7-21 (BEAKER) (test juya=374) CREATININE (BEAKER) (test 1.68 mg/dL 0.57-1.25 cukj=021) GLUCOSE RANDOM (BEAKER) 99 mg/dL 70-105 (test cadt=836) CALCIUM (BEAKER) (test 8.4 mg/dL 8.4-10.2 zfqk=909) EGFR (BEAKER) (test 33 mL/min/1.73 sq m ESTIMATED GFR IS NOT qrbd=1887) ACCURATE CREATININE CLEARANCE IN PREDICTING GLOMERULAR FILTRATION RATE. ESTIMATED GFR IS NOT APPLICABLE FOR DIALYSIS PATIENTS. CBC W/PLT COUNT & AUTO [id number] 05:56:00 Test Item Value Reference Range Comments WHITE BLOOD CELL COUNT (BEAKER) (test gihx=357) 11.7 K/ L 3.5-10.5 RED BLOOD CELL COUNT (BEAKER) (test sldz=620) 3.95 M/ L 3.93-5.22 HEMOGLOBIN (BEAKER) (test kmoo=429) 12.1 GM/DL 11.2-15.7 HEMATOCRIT (BEAKER) (test daar=371) 36.3 % 34.1-44.9 MEAN CORPUSCULAR VOLUME (BEAKER) (test lapd=653) 91.9 fL 79.4-94.8 MEAN CORPUSCULAR HEMOGLOBIN (BEAKER) (test 30.6 pg 25.6-32.2 jjhy=179) MEAN CORPUSCULAR HEMOGLOBIN CONC (BEAKER) (test 33.3 GM/DL 32.2-35.5 oyax=956) RED CELL DISTRIBUTION WIDTH (BEAKER) (test 12.7 % 11.7-14.4 ikba=488) PLATELET COUNT (BEAKER) (test enqy=113) 349 K/CU MM 150-450 MEAN PLATELET VOLUME (BEAKER) (test tizd=900) 10.8 fL 9.4-12.3 NUCLEATED RED BLOOD CELLS (BEAKER) (test 0 /100 WBC 0-0 dtwp=384) NEUTROPHILS RELATIVE PERCENT (BEAKER) (test 59 % zoaq=450) LYMPHOCYTES RELATIVE PERCENT (BEAKER) (test 31 % uapg=461) MONOCYTES RELATIVE PERCENT (BEAKER) (test 8 % oiyx=880) EOSINOPHILS RELATIVE PERCENT (BEAKER) (test 2 % sgvf=702) BASOPHILS RELATIVE PERCENT (BEAKER) (test 1 % treb=197) NEUTROPHILS ABSOLUTE COUNT (BEAKER) (test 6.87 K/ L 1.56-6.13 ojwp=861) LYMPHOCYTES ABSOLUTE COUNT (BEAKER) (test 3.57 K/ L 1.18-3.74 xucb=305) MONOCYTES ABSOLUTE COUNT (BEAKER) (test 0.90 K/ L 0.24-0.36 bles=819) EOSINOPHILS ABSOLUTE COUNT (BEAKER) (test 0.24 K/ L 0.04-0.36 cxic=012) BASOPHILS ABSOLUTE COUNT (BEAKER) (test 0.06 K/ L 0.01-0.08 peda=217) IMMATURE GRANULOCYTES-RELATIVE PERCENT (BEAKER) 0 % 0-1 (test hdul=9605) POCT-GLUCOSE [id number] 04:32:00 Test Item Value Reference Range Comments POC-GLUCOSE METER (BEAKER) 107 mg/dL 70-110 TESTED AT [address] (test rcxr=5269) [facility] [address] POCT-GLUCOSE [id number] 22:21:00 Test Item Value Reference Range Comments POC-GLUCOSE METER (BEAKER) 118 mg/dL 70-110 TESTED AT [address] (test deyf=8285) [facility] [address] POCT-GLUCOSE [id number] 21:22:00 Test Item Value Reference Range Comments POC-GLUCOSE METER (BEAKER) 52 mg/dL 70-110 Notified ARMOND REYNOSO/TESTED AT [facility] (test tzcw=6145) [address] [facility] [address] MICROALBUMIN, RANDOM [id number] 17:57:00 Test Item Value Reference Range Comments MICROALBUMIN URINE (BEAKER) (test hysk=5493) > mg/dL Reference Range: No NormalsURINALYSIS W/ [id number] 17:36:00 Test Item Value Reference Range Comments COLOR (BEAKER) (test jywe=322) Light Yellow CLARITY (BEAKER) (test jlub=835) Clear SPECIFIC GRAVITY UA (BEAKER) (test vejb=470) 1.005 1.001-1.035 PH UA (BEAKER) (test kymk=099) 7.0 5.0-8.0 PROTEIN UA (BEAKER) (test rimz=982) 300 mg/dL Negative GLUCOSE UA (BEAKER) (test tglr=504) 30 mg/dL Negative KETONES UA (BEAKER) (test eanc=107) Negative Negative BILIRUBIN UA (BEAKER) (test natk=875) Negative Negative BLOOD UA (BEAKER) (test nggm=485) Negative Negative NITRITE UA (BEAKER) (test nohy=110) Negative Negative LEUKOCYTE ESTERASE UA (BEAKER) (test fpej=164) Negative Negative UROBILINOGEN UA (BEAKER) (test vwhd=275) 0.2 mg/dL 0.2-1.0 RBC UA (BEAKER) (test lyfz=013) 1 /HPF WBC UA (BEAKER) (test gmnl=816) < /HPF BACTERIA (BEAKER) (test jgeq=464) Rare SQUAMOUS EPITHELIAL (BEAKER) (test sgss=814) 1 /HPF SOURCE(BEAKER) (test apsj=1506) Urine, Voided SCREEN, [id number] 17:36:00 Test Item Value Reference Range Comments TEST URINE (BEAKER) (test dqip=675) Negative CREATININE, RANDOM [id number] 17:35:00 Test Item Value Reference Range Comments CREATININE URINE (BEAKER) (test bsis=481) 33.9 mg/dL Reference Range: No NormalsSODIUM, RANDOM [id number] 17:35:00 Test Item Value Reference Range Comments SODIUM URINE (BEAKER) (test zhmn=725) 63 meq/L Reference Range: No NormalsPOCT-GLUCOSE [id number] 17:34:00 Test Item Value Reference Range Comments POC-GLUCOSE METER (BEAKER) 118 mg/dL 70-110 TESTED AT [address] (test kirw=7321) [facility] [address] POCT-GLUCOSE [id number] 13:28:00 Test Item Value Reference Range Comments POC-GLUCOSE METER (BEAKER) 71 mg/dL 70-110 TESTED AT [address] (test umam=2496) [facility] [address] POCT-GLUCOSE [id number] 10:37:00 Test Item Value Reference Range Comments POC-GLUCOSE METER (BEAKER) 144 mg/dL 70-110 TESTED AT [address] (test ylac=8477) [facility] [address] POCT-GLUCOSE [id number] 07:18:00 Test Item Value Reference Range Comments POC-GLUCOSE METER (BEAKER) 60 mg/dL 70-110 TESTED AT [address] (test rqhq=6248) [facility] [address] CBC W/PLT COUNT & AUTO [id number] 05:51:00 Test Item Value Reference Range Comments WHITE BLOOD CELL COUNT (BEAKER) (test gycl=330) 11.4 K/ L 3.5-10.5 RED BLOOD CELL COUNT (BEAKER) (test gsoh=455) 3.81 M/ L 3.93-5.22 HEMOGLOBIN (BEAKER) (test fsof=807) 11.6 GM/DL 11.2-15.7 HEMATOCRIT (BEAKER) (test ekne=646) 34.5 % 34.1-44.9 MEAN CORPUSCULAR VOLUME (BEAKER) (test ycei=792) 90.6 fL 79.4-94.8 MEAN CORPUSCULAR HEMOGLOBIN (BEAKER) (test 30.4 pg 25.6-32.2 dvcd=716) MEAN CORPUSCULAR HEMOGLOBIN CONC (BEAKER) (test 33.6 GM/DL 32.2-35.5 jluc=515) RED CELL DISTRIBUTION WIDTH (BEAKER) (test 12.6 % 11.7-14.4 zqlr=653) PLATELET COUNT (BEAKER) (test xkjh=721) 354 K/CU MM 150-450 MEAN PLATELET VOLUME (BEAKER) (test nuhy=968) 10.4 fL 9.4-12.3 NUCLEATED RED BLOOD CELLS (BEAKER) (test 0 /100 WBC 0-0 lbqt=051) NEUTROPHILS RELATIVE PERCENT (BEAKER) (test 72 % ozae=532) LYMPHOCYTES RELATIVE PERCENT (BEAKER) (test 20 % xkfw=439) MONOCYTES RELATIVE PERCENT (BEAKER) (test 6 % caqb=361) EOSINOPHILS RELATIVE PERCENT (BEAKER) (test 1 % sfjc=631) BASOPHILS RELATIVE PERCENT (BEAKER) (test 0 % dzbz=919) NEUTROPHILS ABSOLUTE COUNT (BEAKER) (test 8.21 K/ L 1.56-6.13 sexh=819) LYMPHOCYTES ABSOLUTE COUNT (BEAKER) (test 2.31 K/ L 1.18-3.74 uhud=944) MONOCYTES ABSOLUTE COUNT (BEAKER) (test 0.65 K/ L 0.24-0.36 jcwr=486) EOSINOPHILS ABSOLUTE COUNT (BEAKER) (test 0.11 K/ L 0.04-0.36 lqpm=773) BASOPHILS ABSOLUTE COUNT (BEAKER) (test 0.05 K/ L 0.01-0.08 llmq=501) IMMATURE GRANULOCYTES-RELATIVE PERCENT (BEAKER) 0 % 0-1 (test asiw=3562) BASIC METABOLIC [id number] 05:51:00 Test Item Value Reference Range Comments SODIUM (BEAKER) (test 138 meq/L 136-145 xwya=406) POTASSIUM (BEAKER) (test 3.8 meq/L 3.5-5.1 cvqc=823) CHLORIDE (BEAKER) (test 105 meq/L 98-107 aojy=406) CO2 (BEAKER) (test 26 meq/L 22-29 ozdi=151) BLOOD UREA NITROGEN 13 mg/dL 7-21 (BEAKER) (test adsh=448) CREATININE (BEAKER) (test 1.66 mg/dL 0.57-1.25 dohy=365) GLUCOSE RANDOM (BEAKER) 167 mg/dL 70-105 (test ddax=638) CALCIUM (BEAKER) (test 8.9 mg/dL 8.4-10.2 jndi=738) EGFR (BEAKER) (test 34 mL/min/1.73 sq m ESTIMATED GFR IS NOT ksiq=5569) ACCURATE CREATININE CLEARANCE IN PREDICTING GLOMERULAR FILTRATION RATE. ESTIMATED GFR IS NOT APPLICABLE FOR DIALYSIS PATIENTS. POCT-GLUCOSE [id number] 21:41:00 Test Item Value Reference Range Comments POC-GLUCOSE METER (BEAKER) 287 mg/dL 70-110 TESTED AT [facility] [address] (test bkwe=4362) [facility] [address] BASIC METABOLIC [id number] 12:35:00 Test Item Value Reference Range Comments SODIUM (BEAKER) (test 134 meq/L 136-145 uksb=954) POTASSIUM (BEAKER) (test 4.6 meq/L 3.5-5.1 guqt=980) CHLORIDE (BEAKER) (test 105 meq/L 98-107 eaja=286) CO2 (BEAKER) (test 23 meq/L 22-29 bjpa=515) BLOOD UREA NITROGEN 14 mg/dL 7-21 (BEAKER) (test szba=206) CREATININE (BEAKER) 1.59 mg/dL 0.57-1.25 (test tvxb=954) GLUCOSE RANDOM (BEAKER) 266 mg/dL 70-105 (test vtvd=746) CALCIUM (BEAKER) (test 8.2 mg/dL 8.4-10.2 zatf=113) EGFR (BEAKER) (test 36 mL/min/1.73 sq m INSUFFICIENT CLINICAL DATA nyst=8000) TO CALCULATE ESTIMATED GFR.This is an appended report. These results have been appended to a previously final verified report. CBC W/PLT COUNT & AUTO [id number] 04:54:00 Test Item Value Reference Range Comments WHITE BLOOD CELL COUNT (BEAKER) (test jses=725) 10.6 K/ L 3.5-10.5 RED BLOOD CELL COUNT (BEAKER) (test jymm=884) 3.55 M/ L 3.93-5.22 HEMOGLOBIN (BEAKER) (test afrp=870) 10.8 GM/DL 11.2-15.7 HEMATOCRIT (BEAKER) (test ftpa=922) 32.6 % 34.1-44.9 MEAN CORPUSCULAR VOLUME (BEAKER) (test fgxa=474) 91.8 fL 79.4-94.8 MEAN CORPUSCULAR HEMOGLOBIN (BEAKER) (test 30.4 pg 25.6-32.2 bewl=038) MEAN CORPUSCULAR HEMOGLOBIN CONC (BEAKER) (test 33.1 GM/DL 32.2-35.5 gcmu=194) RED CELL DISTRIBUTION WIDTH (BEAKER) (test 12.3 % 11.7-14.4 ppgc=775) PLATELET COUNT (BEAKER) (test jkzb=441) 311 K/CU MM 150-450 MEAN PLATELET VOLUME (BEAKER) (test xgrm=729) 10.2 fL 9.4-12.3 NUCLEATED RED BLOOD CELLS (BEAKER) (test 0 /100 WBC 0-0 palv=694) NEUTROPHILS RELATIVE PERCENT (BEAKER) (test 71 % jvsr=654) LYMPHOCYTES RELATIVE PERCENT (BEAKER) (test 20 % jfhi=684) MONOCYTES RELATIVE PERCENT (BEAKER) (test 6 % qssp=436) EOSINOPHILS RELATIVE PERCENT (BEAKER) (test 3 % jysc=255) BASOPHILS RELATIVE PERCENT (BEAKER) (test 1 % bahg=355) NEUTROPHILS ABSOLUTE COUNT (BEAKER) (test 7.51 K/ L 1.56-6.13 mmce=417) LYMPHOCYTES ABSOLUTE COUNT (BEAKER) (test 2.11 K/ L 1.18-3.74 baat=758) MONOCYTES ABSOLUTE COUNT (BEAKER) (test 0.60 K/ L 0.24-0.36 bfee=573) EOSINOPHILS ABSOLUTE COUNT (BEAKER) (test 0.27 K/ L 0.04-0.36 ycqe=418) BASOPHILS ABSOLUTE COUNT (BEAKER) (test 0.07 K/ L 0.01-0.08 wsud=795) IMMATURE GRANULOCYTES-RELATIVE PERCENT (BEAKER) 1 % 0-1 (test yayn=7533) [id number] 20:17:00 Test Item Value Reference Range Comments RPR SCREEN (BEAKER) (test nukc=579) Nonreactive Nonreactive POCT-GLUCOSE [id number] 18:09:00 Test Item Value Reference Range Comments POC-GLUCOSE METER (BEAKER) 215 mg/dL 70-110 TESTED AT [facility] [address] [facility] (test rcok=0746) [place] [address] CBC W/PLT COUNT & AUTO [id number] 11:54:00 Test Item Value Reference Range Comments WHITE BLOOD CELL COUNT (BEAKER) (test zopi=679) 9.3 K/ L 3.5-10.5 RED BLOOD CELL COUNT (BEAKER) (test zkwb=865) 3.45 M/ L 3.93-5.22 HEMOGLOBIN (BEAKER) (test tfui=198) 10.7 GM/DL 11.2-15.7 HEMATOCRIT (BEAKER) (test xwga=896) 32.0 % 34.1-44.9 MEAN CORPUSCULAR VOLUME (BEAKER) (test gtyc=528) 92.8 fL 79.4-94.8 MEAN CORPUSCULAR HEMOGLOBIN (BEAKER) (test 31.0 pg 25.6-32.2 ehon=608) MEAN CORPUSCULAR HEMOGLOBIN CONC (BEAKER) (test 33.4 GM/DL 32.2-35.5 yvfn=407) RED CELL DISTRIBUTION WIDTH (BEAKER) (test 12.7 % 11.7-14.4 flfl=584) PLATELET COUNT (BEAKER) (test rupj=809) 302 K/CU MM 150-450 MEAN PLATELET VOLUME (BEAKER) (test oghb=248) 10.0 fL 9.4-12.3 NUCLEATED RED BLOOD CELLS (BEAKER) (test 0 /100 WBC 0-0 krcy=298) NEUTROPHILS RELATIVE PERCENT (BEAKER) (test 60 % xmfh=501) LYMPHOCYTES RELATIVE PERCENT (BEAKER) (test 29 % ndsl=206) MONOCYTES RELATIVE PERCENT (BEAKER) (test 8 % tuxq=275) EOSINOPHILS RELATIVE PERCENT (BEAKER) (test 3 % vczj=849) BASOPHILS RELATIVE PERCENT (BEAKER) (test 1 % uxwx=263) NEUTROPHILS ABSOLUTE COUNT (BEAKER) (test 5.55 K/ L 1.56-6.13 fcfl=232) LYMPHOCYTES ABSOLUTE COUNT (BEAKER) (test 2.65 K/ L 1.18-3.74 gqnb=995) MONOCYTES ABSOLUTE COUNT (BEAKER) (test 0.70 K/ L 0.24-0.36 lhrl=520) EOSINOPHILS ABSOLUTE COUNT (BEAKER) (test 0.31 K/ L 0.04-0.36 nyvc=041) BASOPHILS ABSOLUTE COUNT (BEAKER) (test 0.05 K/ L 0.01-0.08 vtoj=963) IMMATURE GRANULOCYTES-RELATIVE PERCENT (BEAKER) 0 % 0-1 (test hnqx=5744) (MANUAL DIFFERENTIAL)2017-03-15 11:54:00 Test Item Value Reference Range Comments TOTAL COUNTED (BEAKER) (test jvck=9199) WBC MORPHOLOGY (BEAKER) (test kpil=238) Normal PLT MORPHOLOGY (BEAKER) (test jkbj=910) Normal RBC MORPHOLOGY (BEAKER) (test ahjs=660) Normal SEDIMENTATION [id number] 10:27:00 Test Item Value Reference Range Comments SEDIMENTATION RATE, ERYTHROCYTE (BEAKER) (test 79 mm/HR 0-20 liuh=200) HEMOGLOBIN [id number] 09:33:00 Test Item Value Reference Range Comments HEMOGLOBIN A1C (BEAKER) (test kdam=836) 9.8 % 4.3-6.1 VITAMIN [id number] 09:14:00 Test Item Value Reference Range Comments VITAMIN B12 (BEAKER) (test bhgn=357) 1790 pg/mL 213-816 TSH/FREE T4 IF [id number] 09:14:00 Test Item Value Reference Range Comments THYROID STIMULATING HORMONE (BEAKER) (test 1.08 uIU/mL 0.35-4.94 umif=741) BASIC METABOLIC [id number] 08:52:00 Test Item Value Reference Range Comments SODIUM (BEAKER) (test 137 meq/L 136-145 slto=608) POTASSIUM (BEAKER) (test 4.7 meq/L 3.5-5.1 zctz=360) CHLORIDE (BEAKER) (test 107 meq/L 98-107 dpca=385) CO2 (BEAKER) (test 25 meq/L 22-29 rezw=827) BLOOD UREA NITROGEN 18 mg/dL 7-21 (BEAKER) (test ifey=498) CREATININE (BEAKER) (test 1.77 mg/dL 0.57-1.25 tgyn=440) GLUCOSE RANDOM (BEAKER) 290 mg/dL 70-105 (test furr=843) CALCIUM (BEAKER) (test 8.0 mg/dL 8.4-10.2 bebb=962) EGFR (BEAKER) (test mL/min/1.73 sq m INSUFFICIENT CLINICAL DATA ibpn=0488) TO CALCULATE ESTIMATED GFR. FastingLIPID [id number] 08:51:00 Test Item Value Reference Range Comments TRIGLYCERIDES (BEAKER) (test plft=259) 90 mg/dL CHOLESTEROL (BEAKER) (test ovmz=613) 143 mg/dL HDL CHOLESTEROL (BEAKER) (test mlvx=679) 44 mg/dL LDL CHOLESTEROL CALCULATED (BEAKER) (test 81 mg/dL kxsc=779) Triglyceride Reference Range: Low Risk <150 Borderline 150- 199 High Risk 200-499 Very High Risk >=500Cholesterol Reference Range: Low Risk <200 Borderline 200-239 High Risk > 240HDL Cholesterol Reference Range: Low Risk >=60 High Risk <40LDL Cholesterol Reference Range: Optimal <100 Near Optimal 100-129 Borderline 130-159 High 160-189 Very High >=190 FastingHCG, QUANTITATIVE, [id number] 01:43:00 Test Item Value Reference Range Comments GONADOTROPIN, CHORIONIC (HCG) QUANT (BEAKER) (test < mIU/mL 0-10 lqpu=688) Non- Females: <10 mIU/mL Females: Gestation Age Reference Range(mIU/mL) 0.2-1 Week 5-50 1-2 Weeks 50-500 2-3 Weeks 100-5,000 3-4Weeks 500-10,000 4 -5 Weeks 1,000-50,000 5-6 Weeks 10,000-100,000 6-8 Weeks 15,000-200,000 2-3 Months 10,000-100,000COMPREHENSIVE METABOLIC [id number] 21:57:00 Test Item Value Reference Range Comments TOTAL PROTEIN (BEAKER) 5.0 gm/dL 6.0-8.3 (test fbfr=571) ALBUMIN (BEAKER) (test 2.1 g/dL 3.5-5.0 gphp=2079) ALKALINE PHOSPHATASE 106 U/L 40-150 (BEAKER) (test jfcl=391) BILIRUBIN TOTAL (BEAKER) 0.2 mg/dL 0.2-1.2 (test qcto=100) SODIUM (BEAKER) (test 137 meq/L 136-145 fcwm=120) POTASSIUM (BEAKER) (test 4.7 meq/L 3.5-5.1 cbsz=969) CHLORIDE (BEAKER) (test 106 meq/L 98-107 nnha=013) CO2 (BEAKER) (test 25 meq/L 22-29 foye=030) BLOOD UREA NITROGEN 21 mg/dL 7-21 (BEAKER) (test alon=661) CREATININE (BEAKER) (test 2.00 mg/dL 0.57-1.25 eykb=073) GLUCOSE RANDOM (BEAKER) 285 mg/dL 70-105 (test gnaj=193) CALCIUM (BEAKER) (test 7.9 mg/dL 8.4-10.2 kifo=485) AST (SGOT) (AdmeldAKER) (test 16 U/L 5-34 rdkp=558) ALT (SGPT) (AdmeldAKER) (test 14 U/L 6-55 mzxp=258) EGFR (DormNoise) (test mL/min/1.73 sq m INSUFFICIENT CLINICAL DATA zhlz=3223) TO CALCULATE ESTIMATED GFR. Unit CollectPOCT-GLUCOSE [id number] 21:50:00 Test Item Value Reference Range Comments POC-GLUCOSE METER ([facility]ormNoise) 278 mg/dL 70-110 [facility] [id number] [facility] (test zcuw=0331) [facility] [id number]
[2018-02-01] MEDS ORDERED: FENTANYL CITR 100 MCG/2 ML ONE (08:28)
[2018-02-01 08:31] LABS: Absolute Lymphocytes (CBC) 2.8 K/uL (0.7-4.9); Absolute Monocytes 0.9 K/uL (0.1-1.3); Absolute Neutrophil 8.5 K/uL (1.8-8.0); Basophils % 0.8 % (0-1.3); Eosinophils % 1.6 % (0-4.4); Hematocrit 40.4 % (36.0-45.0); Lymphocytes % 22.6 % (15.3-44.8); MCH 30.7 pg (27.0-35.0); MCV 90.2 fL (80-100); MPV 9.6 fL (7.6-11.3); RBC Red Blood Cell Count 4.48 M/uL (3.86-4.86)
[2018-02-01 08:58] LABS: Protime INR 0.85
[2018-02-01 09:10] LABS: Potassium 3.8 mEq/L (3.6-5.0)
[2018-02-01 09:11] LABS: Magnesium 1.6 mg/dL (1.8-2.5)
--- NOTE | 2018-02-01 09:24 | RAD REPORT ---
EXAM DESCRIPTION: RAD - Chest Single View - 02/01/2018 8:35 am CLINICAL HISTORY: Chest pain, shortness of breath COMPARISON: December 21 TECHNIQUE: AP portable chest image was obtained 0830 hours . FINDINGS: Lung volumes are low. No peripheral mass, consolidation or failure finding. Heart and vasc ulature are normal. No measurable pleural effusion and no pneumothorax. No gross bony abnormality see n. No acute aortic findings suspected. IMPRESSION: No acute cardiopulmonary process. No significant interval change.
[2018-02-01] MEDS ORDERED: MAGNESIUM SULFATE 1 gm IVPB 1 GM/100 ML BAG IV ONE (09:29)
--- NOTE | 2018-02-01 09:41 | RAD REPORT ---
EXAM DESCRIPTION: CT - Thorax Wo Con - 02/01/2018 9:34 am CLINICAL HISTORY: Chest pain, shortness of breath, hyperventilated COMPARISON: Portable chest February 01, CT chest August 2017 TECHNIQUE: Axial 5 mm thick images of the chest were obtained without IV contrast. All CT scans are performed using dose optimization technique as appropriate and may include automated exposure control or mA/KV adjustment according to patient size. FINDINGS: No mass or infiltrate in the lung parenchyma. No pleural thickening or pleural effusion. N o pneumothorax. No abnormal mediastinal or hilar masses or lymphadenopathy seen. No gross aortic or pulmonary artery finding suspected. No cardiomegaly or pericardial effusion. There is no endobronchial lesion or bron chial wall thickening identifiable. No chest wall mass or abnormal axillary lymphadenopathy. IMPRESSION: Negative non-contrast CT chest examination.
--- NOTE | 2018-02-01 09:43 | EKG ---
Test Date: 2018-02-01 Test Time: 08:12:22 Hacksaw Inspector: ABEL MEASUREMENT RESULTS: Intervals: Rate: 89 AR: 130 QRSD: 70 QT: 384 QTc: 467 [place]: P: 38 AR: 130 QRS: 20 T: 77 INTERPRETIVE STATEMENTS: Normal sinus rhythm Normal ECG Compared to ECG 12/22/2017 09:05:37 No significant changes Electronically Signed On 02-01-18 09:42:48 CDT by Souleymane Julio
[2018-02-01] MEDS ORDERED: INSULIN -REGULAR HUMAN 50 UNIT/0.5 ML ML ONE (10:14)
--- NOTE | 2018-02-01 11:08 | ER ---
Nurse's Notes [facility] Name: Archana Woo Age: 42 yrs Sex: Female : 1975 Arrival Date: 02/01/2018 Time: 08:07 Bed 17 Private MD: Diagnosis: Chest pain, unspecified;Hyperglycemia, unspecified Presentation: 02/01 08:08 Presenting complaint: EMS states: called out for chest pain, pt kept saying to EMS "I'm sv scared." Pt got into the ambulance and started crying and hyperventilating, NRB was applied but pt did not want it on. Pt told EMS "I'm going to drown." BP 172/108 99% RA [id number]. Transition of care: patient was not received from another setting of care. Onset of symptoms was February 01, 2018. Risk Assessment: Do you want to hurt yourself or someone else? Patient reports no desire to harm self or others. Initial Sepsis Screen: Does the patient meet any 2 criteria? No. Patient's initial sepsis screen is negative. Does the patient have a suspected source of infection? No. Patient's initial sepsis screen is negative. Care prior to arrival: None. 08:08 Method Of Arrival: EMS: [facility] sv 08:08 Acuity: TARUN 3 sv Triage Assessment: 08:08 General: Appears uncomfortable, Behavior is cooperative, anxious, crying. Pain: sv Complains of pain in left scapular area, right scapular area, thoracic area and chest Pain currently is 8 out of 10 on a pain scale. Pain began "this morning it woke me out of my sleep" Is continuous. EENT: No signs and/or symptoms were reported regarding the EENT system. Neuro: Level of Consciousness is awake, alert, obeys commands, Oriented to person, place, time, situation, Moves all extremities. Cardiovascular: Patient's skin is warm and dry. Respiratory: Reports shortness of breath at rest pain with respiration Respiratory effort is shallow, Respiratory pattern is regular, symmetrical. Derm: Skin is normal. Historical: - Allergies: 08:12 No Known Allergies; sv - Home Meds: 08:25 atorvastatin Oral [Active]; Hydrocodone-Acetaminophen Oral [Active]; Toujeo SoloStar tw2 300 unit/mL (1.5 mL) subcutaneous inpn [Active]; - PMHx: 08:12 BLIND; CVA; Depression; Diabetes - NIDDM; GERD; Hyperlipidemia; Hypertension; sv neuropathy; THYROID CANCER; TIA; - PSHx: 08:12 ; Cholecystectomy; tumor removed on thyroid; 14 eye sx; sv - Immunization history:: Adult Immunizations up to date. - Social history:: Smoking status: . - Ebola Screening: : Patient denies travel to an Ebola-affected area in the 21 days before illness onset. Screenin:23 Abuse screen: Denies threats or abuse. Nutritional screening: No deficits noted. tw2 Tuberculosis screening: No symptoms or risk factors identified. Fall Risk Secondary diagnosis (15 points) blind. Assessment: 08:43 Reassessment: See triage assessment. sv 09:46 Reassessment: Patient appears in no apparent distress at this time. No changes from sv previously documented assessment. Patient and/or family updated on plan of care and expected duration. Pain level reassessed. Patient is alert, oriented x 3, equal unlabored respirations, skin warm/dry/pink. Pt started crying once I walked into the room. Daughter at the bedside. 10:36 Reassessment: Patient and/or family updated on plan of care and expected duration. Pain sv level reassessed. Patient is alert, oriented x 3, equal unlabored respirations, skin warm/dry/pink. Pt not crying at this time. Daughter at the bedside. 11:20 Reassessment: Patient appears in no apparent distress at this time. Patient and/or sv family updated on plan of care and expected duration. Pain level reassessed. Patient is alert, oriented x 3, equal unlabored respirations, skin warm/dry/pink. Vital Signs: 08:12 BP 145 / 113; Pulse 102; Resp 26; Pulse Ox 98% ; sv 08:23 Temp 97.5(TE); Weight 72.57 kg; Height 5 ft. 4 in. (162.56 cm); tw2 08:36 BP 117 / 80; Pulse 88; Resp 17; Pulse Ox 98% on R/A; tw2 09:18 BP 142 / 77; Pulse 93; Resp 20; Pulse Ox 99% ; sv 09:46 BP 157 / 92; Pulse 78; Resp 20; Pulse Ox 100% on R/A; sv 10:40 BP 139 / 81; Pulse 73; Resp 18; Pulse Ox 97% on R/A; sv 11:20 BP 138 / 82; Pulse 77; Resp 18; Pulse Ox 98% ; sv 08:23 Body Mass Index 27.46 (72.57 kg, 162.56 cm) tw2 ED Course: 08:07 Patient arrived in ED. sv 08:08 Marcella Pradhan, RN is Primary Nurse. sv 08:08 Placed in gown. Bed in low position. Side rails up X2. early childhood education specialist on. Pulse ox on. tw2 NIBP on. 08:09 Matt Lemons MD is Attending Physician. gs 08:11 Triage completed. sv 08:19 EKG done, by quality assurance/r&d lab technician. reviewed by Matt Lemons MD. tc 08:20 Initial lab(s) drawn, by me, sent to lab. Inserted saline lock: 20 gauge in right sv forearm, using aseptic technique. Blood collected. Flushed right forearm with 5 ml normal saline. 08:23 Arm band placed on. tw2 08:26 Patient maintains SpO2 saturation greater than 95% on room air. tw2 08:28 X-ray(s) taken. sv 08:33 X-ray completed. Portable x-ray completed in exam room. jb2 08:35 XRAY Chest (1 view) In Process Unspecified. EDMS 08:40 Lab(s) recollected, by ED staff, sent to lab. sv 08:57 Radiology exam delayed due to lab results not completed at this time. (BUN/Creatinine). kw1 09:21 Notified ED physician of a critical lab result(s). [id number]. iw 09:32 CT completed. Patient tolerated procedure well. Patient moved to CT via stretcher. sj Patient moved back from CT. 09:34 Thorax Wo Con In Process Unspecified. EDMS 10:36 Repeat lab(s) drawn. by me, sent to lab. sv 11:21 No provider procedures requiring assistance completed. IV discontinued, intact, sv bleeding controlled, No redness/swelling at site. Pressure dressing applied. Administered Medications: 08:28 Drug: fentaNYL (PF) 50 mcg Route: IVP; Site: right forearm; sv 08:45 Follow up: Response: No adverse reaction sv 09:45 Drug: Magnesium Sulfate 1 grams Route: IVPB; Infused Over: 1 hrs; Site: right forearm; sv 10:45 Follow up: Response: No adverse reaction; IV Status: Completed infusion; IV Intake: sv 100ml 10:15 CANCELLED (order changed): Insulin Regular Human 10 units Sub-Q once iw 10:15 Drug: Insulin Regular Human 5 units {Co-Signature: marie (Marcella Pradhan RN).} Route: iw Sub-Q; Site: right upper arm; 11:24 Follow up: Response: No adverse reaction sv Point of Care Testing: Blood Glucose: 08:12 Blood Glucose: 426 mg/dL; sv 10:09 Blood Glucose: 443 mg/dL; sv Ranges: Intake: 10:45 IV: 100ml; Total: 100ml. sv Outcome: 11:07 Discharge ordered by . gs 11:21 Discharged to home via wheelchair, with family. sv 11:21 Condition: stable 11:21 Discharge instructions given to patient, family, Instructed on discharge instructions, follow up and referral plans. Demonstrated understanding of instructions, follow-up care. 11:23 Patient left the ED. sv Signatures: Dispatcher [employer] Marcella Beebe RN RN sv Buechter, Jesse jb2 Jones, Susan sj Williams, Irene, RN RN Yara Garcia, rfp writer EKG [facility] Mery Wang RN RN tw2 Matt Lemons MD MD Reina Adams 1 Marcella Pradhan RN sv Corrections: (The following items were deleted from the chart) 08:33 08:12 Blood Glucose: Notes=per Nathaniel Cuevas, Blood Glucose Zvntcio=704 mg/dL. tw2 tw2 10:37 09:46 Reassessment: Patient appears in no apparent distress at this time. No changes sv from previously documented assessment. Patient and/or family updated on plan of care and expected duration. Pain level reassessed. Patient is alert, oriented x 3, equal unlabored respirations, skin warm/dry/pink. sv
--- NOTE | 2018-02-01 11:08 | EDPHYS ---
Physician Documentation [facility] Name: Archana Woo Age: 42 yrs Sex: Female : 1975 Arrival Date: 02/01/2018 Time: 08:07 Bed 17 Private MD: ED Physician Matt Lemons HPI: 02/01 11:19 This 42 yrs old Female presents to ER via EMS with complaints of Chest Pain,. gs 11:23 The patient or guardian reports chest pain that is located primarily in the anterior gs chest wall. Onset: this morning. The pain does not radiate. Associated signs and symptoms: Pertinent positives: shortness of breath. The chest pain is described as a heaviness. Duration: The patient or guardian reports multiple episodes, that are intermittent, that wax and wane, with no pattern. Modifying factors: The symptoms are alleviated by nothing. the symptoms are aggravated by nothing. Severity of pain: At its worst the pain was moderate. The patient has experienced similar episodes in the past, several times. Historical: - Allergies: 08:12 No Known Allergies; sv - Home Meds: 08:25 atorvastatin Oral [Active]; Hydrocodone-Acetaminophen Oral [Active]; Toujeo SoloStar tw2 300 unit/mL (1.5 mL) subcutaneous inpn [Active]; - PMHx: 08:12 BLIND; CVA; Depression; Diabetes - NIDDM; GERD; Hyperlipidemia; Hypertension; sv neuropathy; THYROID CANCER; TIA; - PSHx: 08:12 ; Cholecystectomy; tumor removed on thyroid; 14 eye sx; sv - Immunization history:: Adult Immunizations up to date. - Social history:: Smoking status: . - Ebola Screening: : Patient denies travel to an Ebola-affected area in the 21 days before illness onset. ROS: 11:23 All other systems are negative. gs Exam: 11:23 Head/Face: Normocephalic, atraumatic. ENT: Nares patent. No nasal discharge, no gs septal abnormalities noted. Tympanic membranes are normal and external auditory canals are clear. Oropharynx with no redness, swelling, or masses, exudates, or evidence of obstruction, uvula midline. Mucous membranes moist. Neck: Trachea midline, no thyromegaly or masses palpated, and no cervical lymphadenopathy. Supple, full range of motion without nuchal rigidity, or vertebral point tenderness. No Meningismus. Chest/axilla: Normal chest wall appearance and motion. Nontender with no deformity. No lesions are appreciated. Cardiovascular: Regular rate and rhythm with a normal S1 and S2. No gallops, murmurs, or rubs. Normal PMI, no JVD. No pulse deficits. Respiratory: Lungs have equal breath sounds bilaterally, clear to auscultation and percussion. No rales, rhonchi or wheezes noted. No increased work of breathing, no retractions or nasal flaring. Abdomen/GI: Soft, non-tender, with normal bowel sounds. No distension or tympany. No guarding or rebound. No evidence of tenderness throughout. Back: No spinal tenderness. No costovertebral tenderness. Full range of motion. Skin: Warm, dry with normal turgor. Normal color with no rashes, no lesions, and no evidence of cellulitis. MS/ Extremity: Pulses equal, no cyanosis. Neurovascular intact. Full, normal range of motion. Neuro: Awake and alert, GCS 15, oriented to person, place, time, and situation. Cranial nerves II-XII grossly intact. Motor strength 5/5 in all extremities. Sensory grossly intact. Cerebellar exam normal. Normal gait. 11:23 Constitutional: The patient appears alert, awake. 11:23 Eyes: Corneas: no acute changes, opaque infiltrates pt is blind, Anterior chamber: 11:30 ECG was reviewed by the Attending Physician. Vital Signs: 08:12 BP 145 / 113; Pulse 102; Resp 26; Pulse Ox 98% ; sv 08:23 Temp 97.5(TE); Weight 72.57 kg; Height 5 ft. 4 in. (162.56 cm); tw2 08:36 BP 117 / 80; Pulse 88; Resp 17; Pulse Ox 98% on R/A; tw2 09:18 BP 142 / 77; Pulse 93; Resp 20; Pulse Ox 99% ; sv 09:46 BP 157 / 92; Pulse 78; Resp 20; Pulse Ox 100% on R/A; sv 10:40 BP 139 / 81; Pulse 73; Resp 18; Pulse Ox 97% on R/A; sv 11:20 BP 138 / 82; Pulse 77; Resp 18; Pulse Ox 98% ; sv 08:23 Body Mass Index 27.46 (72.57 kg, 162.56 cm) tw2 MDM: 08:09 Patient medically screened. 11:23 Differential diagnosis: acute myocardial infarction, coronary artery disease chest wall gs pain, gastroesophageal reflux disease (GERD), thoracic aortic disection. Data reviewed: vital signs, nurses notes. 02/01 08:11 Order name: Basic Metabolic Panel; Complete Time: 09:59 gs 02/01 08:11 Order name: CBC with Diff; Complete Time: 08:53 gs 02/01 08:11 Order name: Magnesium; Complete Time: 09:59 gs 02/01 08:11 Order name: PT-INR; Complete Time: 09:20 gs 02/01 08:11 Order name: Troponin (emerg Dept Use Only); Complete Time: 09:20 gs 02/01 10:23 Order name: Troponin (emerg Dept Use Only); Complete Time: 11:06 gs 02/01 08:11 Order name: XRAY Chest (1 view); Complete Time: 09:59 gs 02/01 08:11 Order name: EKG; Complete Time: 08:11 02/01 09:25 Order name: Thorax Wo Con; Complete Time: 09:59 EDMS 02/01 08:11 Order name: Cardiac monitoring; Complete Time: 08:21 gs 02/01 08:11 Order name: EKG - Nurse/Tech; Complete Time: 08:22 gs 02/01 08:11 Order name: IV Saline Lock; Complete Time: 08:22 gs 02/01 08:11 Order name: Labs collected and sent; Complete Time: 08:22 gs 02/01 08:11 Order name: O2 Per Protocol; Complete Time: 08:22 gs 02/01 08:11 Order name: O2 Sat Monitoring; Complete Time: 08:22 gs EC:30 Rate is 89 beats/min. Rhythm is regular. SD interval is normal. QRS interval is normal. gs T waves are Inverted in lead aVL. Clinical impression: Abnormal EKG without significant change. Interpreted by me. Administered Medications: 08:28 Drug: fentaNYL (PF) 50 mcg Route: IVP; Site: right forearm; sv 08:45 Follow up: Response: No adverse reaction sv 09:45 Drug: Magnesium Sulfate 1 grams Route: IVPB; Infused Over: 1 hrs; Site: right forearm; sv 10:45 Follow up: Response: No adverse reaction; IV Status: Completed infusion; IV Intake: sv 100ml 10:15 CANCELLED (order changed): Insulin Regular Human 10 units Sub-Q once iw 10:15 Drug: Insulin Regular Human 5 units {Co-Signature: marie (Marcella Pradhan RN).} Route: iw Sub-Q; Site: right upper arm; 11:24 Follow up: Response: No adverse reaction sv Point of Care Testing: Blood Glucose: 08:12 Blood Glucose: 426 mg/dL; sv 10:09 Blood Glucose: 443 mg/dL; sv Ranges: Critical Glucose Levels:Adult <50 mg/dl or >400 mg/dl <40 mg/dl or >180 mg/dl Disposition: 02/01/18 11:07 Discharged to Home. Impression: Chest pain, unspecified, Hyperglycemia, unspecified. - Condition is Stable. - Discharge Instructions: Nonspecific Chest Pain, Hyperglycemia. - Medication Reconciliation Form, Thank You Letter, Antibiotic Education, Prescription Opioid Use form. - Follow up: Private Physician; When: 2 - 3 days; Reason: Re-evaluation by your physician. Signatures: Dispatcher [employer] Marcella Beebe RN RN Margarita Wheatley RN RN Mery Wang RN RN tw2 Matt Lemons MD MD Marcella Pradhan RN Corrections: (The following items were deleted from the chart) 09:25 08:54 Chest For PE Angio+CT.RAD.BRZ ordered. [facility] 10:15 10:00 Insulin Regular Human 10 units Sub-Q once ordered. [facility] 10:15 10:14 Insulin Regular Human 10 units Sub-Q once ordered. [facility] 11:23 11:07 02/01/2018 11:07 Discharged to Home. Impression: Chest pain, unspecified; sv Hyperglycemia, unspecified. Condition is Stable. Forms are Medication Reconciliation Form, Thank You Letter, Antibiotic Education, Prescription Opioid Use. Follow up: Private Physician; When: 2 - 3 days; Reason: Re-evaluation by your physician. gs
[2018-02-01 11:56] VITALS: TEMP 97.5
[2018-02-01 12:02] VITALS: BP 138/82; O2SAT 98
== END 2018-02-01 11:23 | disposition home or self-care (01) ==
LOC: ER 08:06
DX: E11.65 Type 2 diabetes mellitus with hyperglycemia (principal); E78.5 Hyperlipidemia, unspecified; I10 Essential (primary) hypertension; Z79.4 Long term (current) use of insulin; Z85.850 Personal history of malignant neoplasm of thyroid
CPT/HCPCS: 36415; 71045; 71250; 80048; 82962 ×2; 83735; 84484 ×2; 85025; 85610; 93005; 96365; 96372; 96375; 99285; J3010; J3475

== ENCOUNTER 2018-06-27 17:25 | Emergency (ER) | payer OTHER ==
--- OUTSIDE RECORDS SUMMARY | 2018-06-27 17:28 | XMS REPORT | Clinical Summary ---
:1975 Author Organization [facility] Address [address] [place] [address] Care Team Providers Name Role Phone Unavailable Primary Care Provider Unavailable Allergies No Known Allergies Medications Medication Sig Dispensed Refills Start Date End Date Status PARoxetine (PAXIL) Take 40 mg by mouth 0 Active 40 MG tablet every morning. HYDROcodone-acetamin Take 1 tablet by 0 Active ophen (NORCO mouth every 6 (six) 7.5-325) 7.5-325 mg hours as needed for per tablet Pain. ALPRAZolam (XANAX) 1 Take 1 mg by mouth 0 Active MG tablet every night as needed for Anxiety. busPIRone (BUSPAR) Take 10 mg by mouth 0 Active 10 MG tablet 3 (three) times daily. esomeprazole Take 40 mg by mouth 0 Active (NEXIUM) 40 MG daily. capsule fenofibrate (TRICOR) Take 48 mg by mouth 0 Active 48 MG tablet daily. levothyroxine Take 150 mcg by 0 Active (SYNTHROID, mouth Every morning LEVOTHROID) 150 MCG on an empty stomach. tablet magnesium oxide Take 400 mg by mouth 0 Active (MAG-OX) 400 mg daily. tablet prednisoLONE acetate 1 drop as needed. 0 Active (PRED FORTE) 1 % ophthalmic suspension multivitamin Take 1 tablet by 0 Active (MULTIVITAMIN) per mouth daily. tablet metoclopramide HCl Take 10 mg by mouth 0 Active (REGLAN) 10 MG 4 (four) times daily tablet as needed for Nausea. erythromycin base Take 250 mg by mouth 0 Active (E-MYCIN) 250 MG every 6 (six) hours tablet as needed. insulin glargine Inject 50 Units 10 mL 0 03/20/2017 Active (LANTUS) 100 unit/mL subcutaneously every injection morning Use as directed . ergocalciferol Take 1 capsule 4 capsule 0 03/20/2017 (ERGOCALCIFEROL) (50,000 Units total) 8 50,000 unit capsule by mouth every 7 days. Active Problems Problem Noted Date Proteinuria 03/20/2017 Gastroparesis 03/19/2017 DELMA (acute kidney injury) 03/16/2017 Acute metabolic encephalopathy 03/16/2017 Cerebrovascular accident (CVA) due to embolism of left middle cerebral 2016 artery Hypothyroidism 03/15/2017 Diabetes mellitus 03/15/2017 Depression 03/15/2017 Anxiety 03/15/2017 GERD (gastroesophageal reflux disease) 03/15/2017 COPD (chronic obstructive pulmonary disease) 03/15/2017 Chronic renal disease 03/15/2017 Hyperlipidemia 03/15/2017 History of thyroid cancer 03/15/2017 Blind 03/15/2017 Tobacco abuse 03/15/2017 Diabetic retinopathy 03/15/2017 Diabetic nephropathy 03/15/2017 Family History Medical History Relation Name Comments Hypertension Father Diabetes Mother Kidney disease Mother Relation Name Status Comments Father Mother Social History Tobacco Use Types Packs/Day Years Used Date Current Every Day Smoker Sex Assigned at Date Recorded Not on file Job Start Date Occupation Industry Not on file Not on file Not on file Travel History Travel Start Travel End No recent travel history available. Last Filed Vital Signs Not on file Plan of Treatment Not on file Results Not on fileafter 06/26/2017 Insurance Payer Benefit Plan / Group Subscriber ID Type Phone Address [employer] - MEDICARE UNITED MEDICARE HMO xxxxxxxxx [facility] Advance Directives For more information, please contact:[address] [phone] Code Status Date Activated Date Inactivated Comments Full Code 03/14/2017 8:30 PM 03/20/2017 12:11 PM This code status was determined by: Patient
--- OUTSIDE RECORDS SUMMARY | 2018-06-27 17:29 | XMS REPORT ---
:1975 [facility] Address [address] [place] [address] Dr. Soto [address] [place] [id number] Care Team Providers Name Role Phone ARON [...] Range Comments FACTOR V LEIDEN (BEAKER) (test bibu=594) Negative for the R506Q (Factor V Leiden) mutation [id number] (BEAKER) (test Martínez Wang MD (electronic signature) jqai=0604) This test is a genotyping assay which [...] [facility] developed [facility], Section of [facility] Pathology. It has not been cleared or approved by the U.S. Food and Drug Administration (FDA), since FDA approval is not required for clinical use of the test. Validation was done as required by the Clinical Laboratory Improvement Amendments of 1988.POCT-GLUCOSE [id number] 07:28:00 Test Item Value Reference Range Comments POC-GLUCOSE METER (BEAKER) 200 mg/dL 70-[address] [facility] [address] [facility] (test gsly=3807) [facility] [address] POCT-GLUCOSE [id number] 21:18:00 Test Item Value Reference Range Comments POC-GLUCOSE METER (BEAKER) 211 mg/dL 70-[address] [facility] [address] [place] [address] (test dnkw=0506) [facility] [address] PROTEIN, RANDOM [id number] 19:43:00 Test Item Value Reference Range Comments PROTEIN, URINE (BEAKER) (test boat=2088) 286 mg/dL 0-14 CREATININE, RANDOM [id number] 18:27:00 Test Item Value Reference Range Comments CREATININE URINE (BEAKER) (test kzbv=723) 29.3 mg/dL Reference Range: No NormalsDILUTE SHIRA VIPER VENOM (DRVV)2017-03-19 12:47:00 Test Item Value Reference Range Comments PROTIME (BEAKER) (test 11.3 seconds 11.7-14.7 fikl=824) INR (BEAKER) (test dufc=491) 0.8 <=5.9 PARTIAL THROMBOPLASTIN TIME 28.0 seconds 22.5-36.0 (BEAKER) (test sftn=622) DRVV INTERPRETATION (BEAKER) Normal DRVV Results (test dnzc=5930) DRVV INTERPRETATION (BEAKER) Normal Hexagonal Phospholipid (test lmqy=928922) [id number] (BEAKER) Martínez Wang MD (electronic (test dlij=8453) signature) DRVV SCREEN RATIO (BEAKER) 0.84 <1.20 (test btmt=7890) Effective 12/20/2013: Test Method ChangeDRVV Screen Ratio, DRVV 1/1 Screen Ratio, DRVV Confirm Ratio,DRVV Normalized Ratio Reference Range: <1.2Protime Reference Range ChangeNew: 11.7-14.7 Previous: 9.8-12.0PTT Reference Range ChangeNew: 22.5-36.0 Previous: 25.8-34.5URINE [id number] 11:40:00 Test Item Value Reference Range Comments CULTURE (BEAKER) (test 20-29,000 col/mL skin lei rzie=7291) POCT-GLUCOSE [id number] 08:33:00 Test Item Value Reference Range Comments POC-GLUCOSE METER (BEAKER) 293 mg/dL 70-[address] [facility] [address] [facility] (test odjs=1473) [facility] [address] VITAMIN D, [id number] 07:49:00 Test Item Value Reference Range Comments VITAMIN D 25-OH (BEAKER) (test xhos=5281) < ng/mL 13.0-47.8 CBC W/PLT COUNT & AUTO [id number] 05:59:00 Test Item Value Reference Range Comments WHITE BLOOD CELL COUNT (BEAKER) (test quvo=004) 9.4 K/ L 3.5-10.5 RED BLOOD CELL COUNT (BEAKER) (test vhjd=288) 4.16 M/ L 3.93-5.22 HEMOGLOBIN (BEAKER) (test xwoz=361) 12.7 GM/DL 11.2-15.7 HEMATOCRIT (BEAKER) (test itru=168) 38.0 % 34.1-44.9 MEAN CORPUSCULAR VOLUME (BEAKER) (test kigj=899) 91.3 fL 79.4-94.8 MEAN CORPUSCULAR HEMOGLOBIN (BEAKER) (test 30.5 pg 25.6-32.2 adnk=624) MEAN CORPUSCULAR HEMOGLOBIN CONC (BEAKER) (test 33.4 GM/DL 32.2-35.5 btev=574) RED CELL DISTRIBUTION WIDTH (BEAKER) (test 12.6 % 11.7-14.4 pplu=801) PLATELET COUNT (BEAKER) (test fgrl=999) 329 K/CU MM 150-450 MEAN PLATELET VOLUME (BEAKER) (test vkby=043) 10.0 fL 9.4-12.3 NUCLEATED RED BLOOD CELLS (BEAKER) (test 0 /100 WBC 0-0 iyon=669) NEUTROPHILS RELATIVE PERCENT (BEAKER) (test 68 % slwp=501) LYMPHOCYTES RELATIVE PERCENT (BEAKER) (test 23 % rfir=301) MONOCYTES RELATIVE PERCENT (BEAKER) (test 7 % dxzm=779) EOSINOPHILS RELATIVE PERCENT (BEAKER) (test 1 % akgk=466) BASOPHILS RELATIVE PERCENT (BEAKER) (test 1 % dzkc=559) NEUTROPHILS ABSOLUTE COUNT (BEAKER) (test 6.35 K/ L 1.56-6.13 utkz=846) LYMPHOCYTES ABSOLUTE COUNT (BEAKER) (test 2.16 K/ L 1.18-3.74 zokq=269) MONOCYTES ABSOLUTE COUNT (BEAKER) (test 0.68 K/ L 0.24-0.36 xjor=992) EOSINOPHILS ABSOLUTE COUNT (BEAKER) (test 0.10 K/ L 0.04-0.36 svan=428) BASOPHILS ABSOLUTE COUNT (BEAKER) (test 0.06 K/ L 0.01-0.08 mocn=161) IMMATURE GRANULOCYTES-RELATIVE PERCENT (BEAKER) 0 % 0-1 (test jhgy=4408) BASIC METABOLIC [id number] 05:38:00 Test Item Value Reference Range Comments SODIUM (BEAKER) (test 135 meq/L 136-145 tdbz=779) POTASSIUM (BEAKER) (test 4.1 meq/L 3.5-5.1 ltot=198) CHLORIDE (BEAKER) (test 102 meq/L 98-107 cmow=160) CO2 (BEAKER) (test 25 meq/L 22-29 trwk=464) BLOOD UREA NITROGEN 12 mg/dL 7-21 (BEAKER) (test vezi=812) CREATININE (BEAKER) (test 1.99 mg/dL 0.57-1.25 qbmv=701) GLUCOSE RANDOM (BEAKER) 290 mg/dL 70-105 (test mbfk=841) CALCIUM (BEAKER) (test 8.7 mg/dL 8.4-10.2 skfu=827) EGFR (BEAKER) (test 27 mL/min/1.73 sq m ESTIMATED GFR IS NOT hchj=9294) ACCURATE CREATININE CLEARANCE IN PREDICTING GLOMERULAR FILTRATION RATE. ESTIMATED GFR IS NOT APPLICABLE FOR DIALYSIS PATIENTS. [id number] 05:37:00 Test Item Value Reference Range Comments PHOSPHORUS (BEAKER) (test mmqn=987) 4.1 mg/dL 2.3-4.7 [id number] 05:37:00 Test Item Value Reference Range Comments MAGNESIUM (BEAKER) (test zfvn=592) 1.7 mg/dL 1.6-2.6 PTH, [id number] 05:34:00 Test Item Value Reference Range Comments PARATHYROID HORMONE INTACT (BEAKER) (test 57.2 pg/mL 8.5-72.5 ewtu=354) Effective 07/04/2014: Reference Range ChangeNew: 8.5-72.5 Previous: 15.0- 90.0CARDIOLIPIN ANTIBODIES, IGG AND [id number] 22:36:00 Test Item Value Reference Range Comments ANTICARDIOLIPIN IGG ANTIBODY (BEAKER) (test < GPL cszg=686) ANTICARDIOLIPIN IGM ANTIBODY (BEAKER) (test 2.8 MPL zeam=837) Anticardiolipin IgG Result Interpretation:NEG: <20 GPL; U/mlPOS: >/=20 GPL; U/mlAnticardiolipin IgM Result Interpretation:NEG: <20 MPL; U/mlPOS: >/=20 MPL; U/mlPOCT-GLUCOSE [id number] 21:25:00 Test Item Value Reference Range Comments POC-GLUCOSE METER (BEAKER) 198 mg/dL 70-110 TESTED AT [address] (test cqxy=7548) [facility] [address] POCT-GLUCOSE [id number] 16:29:00 Test Item Value Reference Range Comments POC-GLUCOSE METER (BEAKER) 296 mg/dL 70-110 TESTED AT [address] (test bnhf=8286) [place] [address] ANTI-NUCLEAR ANTIBODY (MARY)2017-03-18 15:30:00 Test Item Value Reference Range Comments ANTI-NUCLEAR ANTIBODY (MARY) (BEAKER) (test Negative Negative ljdn=379) HEXAGONAL [id number] 13:21:00 Test Item Value Reference Range Comments HEXAGONAL PHOSPHOLIPID (BEAKER) (test lixv=3290) Negative POCT-GLUCOSE [id number] 12:15:00 Test Item Value Reference Range Comments POC-GLUCOSE METER (BEAKER) 140 mg/dL 70-110 TESTED AT [address] (test svbg=9455) [facility] [address] PROTEIN C [id number] 11:44:00 Test Item Value Reference Range Comments PROTEIN C ACTIVITY (BEAKER) (test gjcr=179) 155.0 % 70.0-130.0 Effective 12/20/2013: Reference Range Change-Adult onlyNew: 70.0-130.0 Previous : 70.0-140.0See Protein C Antigen.ANTITHROMBIN [id number] 11:43:00 Test Item Value Reference Range Comments ANTITHROMBIN III ACTIVITY (BEAKER) (test fptx=907) 87.0 % 80.0-120.0 Effective 12/20/2013: Reference Range Change-Adult onlyNew: 80.0-120.0 Previous : 90.0-128.0POCT-GLUCOSE [id number] 08:17:00 Test Item Value Reference Range Comments POC-GLUCOSE METER (BEAKER) 107 mg/dL 70-[address] [facility] [address] (test iwaw=0240) [facility] [address] BASIC METABOLIC [id number] 06:32:00 Test Item Value Reference Range Comments SODIUM (BEAKER) (test 136 meq/L 136-145 uhur=419) POTASSIUM (BEAKER) (test 3.6 meq/L 3.5-5.1 lrux=601) CHLORIDE (BEAKER) (test 104 meq/L 98-107 asna=139) CO2 (BEAKER) (test 23 meq/L 22-29 frvs=188) BLOOD UREA NITROGEN 11 mg/dL 7-21 (BEAKER) (test ette=994) CREATININE (BEAKER) (test 1.68 mg/dL 0.57-1.25 snjr=335) GLUCOSE RANDOM (BEAKER) 99 mg/dL 70-105 (test ywve=754) CALCIUM (BEAKER) (test 8.4 mg/dL 8.4-10.2 ipjy=901) EGFR (BEAKER) (test 33 mL/min/1.73 sq m ESTIMATED GFR IS NOT zmxp=1689) ACCURATE CREATININE CLEARANCE IN PREDICTING GLOMERULAR FILTRATION RATE. ESTIMATED GFR IS NOT APPLICABLE FOR DIALYSIS PATIENTS. CBC W/PLT COUNT & AUTO [id number] 05:56:00 Test Item Value Reference Range Comments WHITE BLOOD CELL COUNT (BEAKER) (test ipjr=565) 11.7 K/ L 3.5-10.5 RED BLOOD CELL COUNT (BEAKER) (test rual=009) 3.95 M/ L 3.93-5.22 HEMOGLOBIN (BEAKER) (test zhof=605) 12.1 GM/DL 11.2-15.7 HEMATOCRIT (BEAKER) (test gzpj=968) 36.3 % 34.1-44.9 MEAN CORPUSCULAR VOLUME (BEAKER) (test osah=246) 91.9 fL 79.4-94.8 MEAN CORPUSCULAR HEMOGLOBIN (BEAKER) (test 30.6 pg 25.6-32.2 hdmi=337) MEAN CORPUSCULAR HEMOGLOBIN CONC (BEAKER) (test 33.3 GM/DL 32.2-35.5 ztoe=608) RED CELL DISTRIBUTION WIDTH (BEAKER) (test 12.7 % 11.7-14.4 trmc=994) PLATELET COUNT (BEAKER) (test jkeq=342) 349 K/CU MM 150-450 MEAN PLATELET VOLUME (BEAKER) (test rioy=168) 10.8 fL 9.4-12.3 NUCLEATED RED BLOOD CELLS (BEAKER) (test 0 /100 WBC 0-0 igql=222) NEUTROPHILS RELATIVE PERCENT (BEAKER) (test 59 % uqsm=769) LYMPHOCYTES RELATIVE PERCENT (BEAKER) (test 31 % xslw=454) MONOCYTES RELATIVE PERCENT (BEAKER) (test 8 % gjka=559) EOSINOPHILS RELATIVE PERCENT (BEAKER) (test 2 % jfve=671) BASOPHILS RELATIVE PERCENT (BEAKER) (test 1 % brln=466) NEUTROPHILS ABSOLUTE COUNT (BEAKER) (test 6.87 K/ L 1.56-6.13 ujcx=058) LYMPHOCYTES ABSOLUTE COUNT (BEAKER) (test 3.57 K/ L 1.18-3.74 stna=283) MONOCYTES ABSOLUTE COUNT (BEAKER) (test 0.90 K/ L 0.24-0.36 gupd=851) EOSINOPHILS ABSOLUTE COUNT (BEAKER) (test 0.24 K/ L 0.04-0.36 peny=982) BASOPHILS ABSOLUTE COUNT (BEAKER) (test 0.06 K/ L 0.01-0.08 xpfg=352) IMMATURE GRANULOCYTES-RELATIVE PERCENT (BEAKER) 0 % 0-1 (test nhmu=3362) POCT-GLUCOSE [id number] 04:32:00 Test Item Value Reference Range Comments POC-GLUCOSE METER (BEAKER) 107 mg/dL 70-110 TESTED AT [address] (test xeyo=5625) [facility] [address] POCT-GLUCOSE [id number] 22:21:00 Test Item Value Reference Range Comments POC-GLUCOSE METER (BEAKER) 118 mg/dL 70-110 TESTED AT [address] (test ieiu=4978) [facility] [address] POCT-GLUCOSE [id number] 21:22:00 Test Item Value Reference Range Comments POC-GLUCOSE METER (BEAKER) 52 mg/dL 70-110 Notified ARMOND REYNOSO/TESTED AT [facility] (test oirx=3600) [address] [facility] [address] MICROALBUMIN, RANDOM [id number] 17:57:00 Test Item Value Reference Range Comments MICROALBUMIN URINE (BEAKER) (test irtq=8445) > mg/dL Reference Range: No NormalsURINALYSIS W/ [id number] 17:36:00 Test Item Value Reference Range Comments COLOR (BEAKER) (test ygwx=902) Light Yellow CLARITY (BEAKER) (test vhni=881) Clear SPECIFIC GRAVITY UA (BEAKER) (test itfx=922) 1.005 1.001-1.035 PH UA (BEAKER) (test qdih=798) 7.0 5.0-8.0 PROTEIN UA (BEAKER) (test xifz=302) 300 mg/dL Negative GLUCOSE UA (BEAKER) (test ygin=941) 30 mg/dL Negative KETONES UA (BEAKER) (test ojdb=538) Negative Negative BILIRUBIN UA (BEAKER) (test pkjw=523) Negative Negative BLOOD UA (BEAKER) (test ockz=045) Negative Negative NITRITE UA (BEAKER) (test dblb=077) Negative Negative LEUKOCYTE ESTERASE UA (BEAKER) (test qqqe=450) Negative Negative UROBILINOGEN UA (BEAKER) (test jwnq=492) 0.2 mg/dL 0.2-1.0 RBC UA (BEAKER) (test oovv=883) 1 /HPF WBC UA (BEAKER) (test xxkm=650) < /HPF BACTERIA (BEAKER) (test mtrs=929) Rare SQUAMOUS EPITHELIAL (BEAKER) (test hhcr=230) 1 /HPF SOURCE(BEAKER) (test gxby=7154) Urine, Voided SCREEN, [id number] 17:36:00 Test Item Value Reference Range Comments TEST URINE (BEAKER) (test rxof=252) Negative CREATININE, RANDOM [id number] 17:35:00 Test Item Value Reference Range Comments CREATININE URINE (BEAKER) (test xpto=708) 33.9 mg/dL Reference Range: No NormalsSODIUM, RANDOM [id number] 17:35:00 Test Item Value Reference Range Comments SODIUM URINE (BEAKER) (test kqbl=980) 63 meq/L Reference Range: No NormalsPOCT-GLUCOSE [id number] 17:34:00 Test Item Value Reference Range Comments POC-GLUCOSE METER (BEAKER) 118 mg/dL 70-110 TESTED AT [address] (test jquj=1243) [facility] [address] POCT-GLUCOSE [id number] 13:28:00 Test Item Value Reference Range Comments POC-GLUCOSE METER (BEAKER) 71 mg/dL 70-110 TESTED AT [address] (test xfwx=8753) [facility] [address] POCT-GLUCOSE [id number] 10:37:00 Test Item Value Reference Range Comments POC-GLUCOSE METER (BEAKER) 144 mg/dL 70-110 TESTED AT [address] (test xqjb=6916) [facility] [address] POCT-GLUCOSE [id number] 07:18:00 Test Item Value Reference Range Comments POC-GLUCOSE METER (BEAKER) 60 mg/dL 70-110 TESTED AT [address] (test puhq=4499) [facility] [address] CBC W/PLT COUNT & AUTO [id number] 05:51:00 Test Item Value Reference Range Comments WHITE BLOOD CELL COUNT (BEAKER) (test kctt=543) 11.4 K/ L 3.5-10.5 RED BLOOD CELL COUNT (BEAKER) (test iqyb=715) 3.81 M/ L 3.93-5.22 HEMOGLOBIN (BEAKER) (test pznn=147) 11.6 GM/DL 11.2-15.7 HEMATOCRIT (BEAKER) (test ndzh=953) 34.5 % 34.1-44.9 MEAN CORPUSCULAR VOLUME (BEAKER) (test owac=041) 90.6 fL 79.4-94.8 MEAN CORPUSCULAR HEMOGLOBIN (BEAKER) (test 30.4 pg 25.6-32.2 cycp=261) MEAN CORPUSCULAR HEMOGLOBIN CONC (BEAKER) (test 33.6 GM/DL 32.2-35.5 nzpr=090) RED CELL DISTRIBUTION WIDTH (BEAKER) (test 12.6 % 11.7-14.4 eafj=139) PLATELET COUNT (BEAKER) (test wkhg=850) 354 K/CU MM 150-450 MEAN PLATELET VOLUME (BEAKER) (test shbp=354) 10.4 fL 9.4-12.3 NUCLEATED RED BLOOD CELLS (BEAKER) (test 0 /100 WBC 0-0 vjbh=985) NEUTROPHILS RELATIVE PERCENT (BEAKER) (test 72 % mdrm=745) LYMPHOCYTES RELATIVE PERCENT (BEAKER) (test 20 % qmmo=079) MONOCYTES RELATIVE PERCENT (BEAKER) (test 6 % ecgx=960) EOSINOPHILS RELATIVE PERCENT (BEAKER) (test 1 % zvoa=545) BASOPHILS RELATIVE PERCENT (BEAKER) (test 0 % wuqc=365) NEUTROPHILS ABSOLUTE COUNT (BEAKER) (test 8.21 K/ L 1.56-6.13 uafh=005) LYMPHOCYTES ABSOLUTE COUNT (BEAKER) (test 2.31 K/ L 1.18-3.74 dxrn=386) MONOCYTES ABSOLUTE COUNT (BEAKER) (test 0.65 K/ L 0.24-0.36 xmbz=623) EOSINOPHILS ABSOLUTE COUNT (BEAKER) (test 0.11 K/ L 0.04-0.36 bmqi=459) BASOPHILS ABSOLUTE COUNT (BEAKER) (test 0.05 K/ L 0.01-0.08 vbpx=204) IMMATURE GRANULOCYTES-RELATIVE PERCENT (BEAKER) 0 % 0-1 (test xvze=5850) BASIC METABOLIC [id number] 05:51:00 Test Item Value Reference Range Comments SODIUM (BEAKER) (test 138 meq/L 136-145 pflm=812) POTASSIUM (BEAKER) (test 3.8 meq/L 3.5-5.1 regl=945) CHLORIDE (BEAKER) (test 105 meq/L 98-107 tvfv=567) CO2 (BEAKER) (test 26 meq/L 22-29 duvl=014) BLOOD UREA NITROGEN 13 mg/dL 7-21 (BEAKER) (test youv=255) CREATININE (BEAKER) (test 1.66 mg/dL 0.57-1.25 owch=727) GLUCOSE RANDOM (BEAKER) 167 mg/dL 70-105 (test lhrj=356) CALCIUM (BEAKER) (test 8.9 mg/dL 8.4-10.2 cpiv=448) EGFR (BEAKER) (test 34 mL/min/1.73 sq m ESTIMATED GFR IS NOT rqxx=3191) ACCURATE CREATININE CLEARANCE IN PREDICTING GLOMERULAR FILTRATION RATE. ESTIMATED GFR IS NOT APPLICABLE FOR DIALYSIS PATIENTS. POCT-GLUCOSE [id number] 21:41:00 Test Item Value Reference Range Comments POC-GLUCOSE METER (BEAKER) 287 mg/dL 70-[address] [facility] [address] (test brld=4164) [facility] [address] BASIC METABOLIC [id number] 12:35:00 Test Item Value Reference Range Comments SODIUM (BEAKER) (test 134 meq/L 136-145 zbde=037) POTASSIUM (BEAKER) (test 4.6 meq/L 3.5-5.1 bheq=556) CHLORIDE (BEAKER) (test 105 meq/L 98-107 ozxz=724) CO2 (BEAKER) (test 23 meq/L 22-29 tiqp=569) BLOOD UREA NITROGEN 14 mg/dL 7-21 (BEAKER) (test qqfr=354) CREATININE (BEAKER) 1.59 mg/dL 0.57-1.25 (test dxvn=840) GLUCOSE RANDOM (BEAKER) 266 mg/dL 70-105 (test kbtm=168) CALCIUM (BEAKER) (test 8.2 mg/dL 8.4-10.2 zuwp=555) EGFR (BEAKER) (test 36 mL/min/1.73 sq m INSUFFICIENT CLINICAL DATA uuhz=1696) TO CALCULATE ESTIMATED GFR.This is an appended report. These results have been appended to a previously final verified report. CBC W/PLT COUNT & AUTO [id number] 04:54:00 Test Item Value Reference Range Comments WHITE BLOOD CELL COUNT (BEAKER) (test lvkm=201) 10.6 K/ L 3.5-10.5 RED BLOOD CELL COUNT (BEAKER) (test fhtr=619) 3.55 M/ L 3.93-5.22 HEMOGLOBIN (BEAKER) (test qhfr=351) 10.8 GM/DL 11.2-15.7 HEMATOCRIT (BEAKER) (test whsu=612) 32.6 % 34.1-44.9 MEAN CORPUSCULAR VOLUME (BEAKER) (test ucbw=666) 91.8 fL 79.4-94.8 MEAN CORPUSCULAR HEMOGLOBIN (BEAKER) (test 30.4 pg 25.6-32.2 ugvu=584) MEAN CORPUSCULAR HEMOGLOBIN CONC (BEAKER) (test 33.1 GM/DL 32.2-35.5 osyb=175) RED CELL DISTRIBUTION WIDTH (BEAKER) (test 12.3 % 11.7-14.4 cylx=545) PLATELET COUNT (BEAKER) (test hzcx=079) 311 K/CU MM 150-450 MEAN PLATELET VOLUME (BEAKER) (test alvc=523) 10.2 fL 9.4-12.3 NUCLEATED RED BLOOD CELLS (BEAKER) (test 0 /100 WBC 0-0 nejy=488) NEUTROPHILS RELATIVE PERCENT (BEAKER) (test 71 % zbfs=006) LYMPHOCYTES RELATIVE PERCENT (BEAKER) (test 20 % dbpq=890) MONOCYTES RELATIVE PERCENT (BEAKER) (test 6 % xafi=225) EOSINOPHILS RELATIVE PERCENT (BEAKER) (test 3 % ohla=628) BASOPHILS RELATIVE PERCENT (BEAKER) (test 1 % leex=846) NEUTROPHILS ABSOLUTE COUNT (BEAKER) (test 7.51 K/ L 1.56-6.13 nafs=880) LYMPHOCYTES ABSOLUTE COUNT (BEAKER) (test 2.11 K/ L 1.18-3.74 zxfz=375) MONOCYTES ABSOLUTE COUNT (BEAKER) (test 0.60 K/ L 0.24-0.36 altt=813) EOSINOPHILS ABSOLUTE COUNT (BEAKER) (test 0.27 K/ L 0.04-0.36 hrlv=269) BASOPHILS ABSOLUTE COUNT (BEAKER) (test 0.07 K/ L 0.01-0.08 nphz=580) IMMATURE GRANULOCYTES-RELATIVE PERCENT (BEAKER) 1 % 0-1 (test vbhr=2626) [id number] 20:17:00 Test Item Value Reference Range Comments RPR SCREEN (BEAKER) (test gtpf=125) Nonreactive Nonreactive POCT-GLUCOSE [id number] 18:09:00 Test Item Value Reference Range Comments POC-GLUCOSE METER (BEAKER) 215 mg/dL 70-[address] [facility] [address] [facility] (test oejt=1463) [place] [address] CBC W/PLT COUNT & AUTO [id number] 11:54:00 Test Item Value Reference Range Comments WHITE BLOOD CELL COUNT (BEAKER) (test mutp=245) 9.3 K/ L 3.5-10.5 RED BLOOD CELL COUNT (BEAKER) (test csau=230) 3.45 M/ L 3.93-5.22 HEMOGLOBIN (BEAKER) (test odjl=537) 10.7 GM/DL 11.2-15.7 HEMATOCRIT (BEAKER) (test aozi=506) 32.0 % 34.1-44.9 MEAN CORPUSCULAR VOLUME (BEAKER) (test vmfh=310) 92.8 fL 79.4-94.8 MEAN CORPUSCULAR HEMOGLOBIN (BEAKER) (test 31.0 pg 25.6-32.2 bkdk=505) MEAN CORPUSCULAR HEMOGLOBIN CONC (BEAKER) (test 33.4 GM/DL 32.2-35.5 puzt=278) RED CELL DISTRIBUTION WIDTH (BEAKER) (test 12.7 % 11.7-14.4 uaql=445) PLATELET COUNT (BEAKER) (test qsrg=205) 302 K/CU MM 150-450 MEAN PLATELET VOLUME (BEAKER) (test gvqw=759) 10.0 fL 9.4-12.3 NUCLEATED RED BLOOD CELLS (BEAKER) (test 0 /100 WBC 0-0 wsfq=121) NEUTROPHILS RELATIVE PERCENT (BEAKER) (test 60 % pmzr=361) LYMPHOCYTES RELATIVE PERCENT (BEAKER) (test 29 % kobf=013) MONOCYTES RELATIVE PERCENT (BEAKER) (test 8 % oxzm=152) EOSINOPHILS RELATIVE PERCENT (BEAKER) (test 3 % rbwd=350) BASOPHILS RELATIVE PERCENT (BEAKER) (test 1 % hacc=947) NEUTROPHILS ABSOLUTE COUNT (BEAKER) (test 5.55 K/ L 1.56-6.13 qllq=888) LYMPHOCYTES ABSOLUTE COUNT (BEAKER) (test 2.65 K/ L 1.18-3.74 wqiu=041) MONOCYTES ABSOLUTE COUNT (BEAKER) (test 0.70 K/ L 0.24-0.36 otis=419) EOSINOPHILS ABSOLUTE COUNT (BEAKER) (test 0.31 K/ L 0.04-0.36 smar=132) BASOPHILS ABSOLUTE COUNT (BEAKER) (test 0.05 K/ L 0.01-0.08 baez=375) IMMATURE GRANULOCYTES-RELATIVE PERCENT (BEAKER) 0 % 0-1 (test fdno=8727) (MANUAL DIFFERENTIAL)2017-03-15 11:54:00 Test Item Value Reference Range Comments TOTAL COUNTED (BEAKER) (test plwp=6524) WBC MORPHOLOGY (BEAKER) (test rsck=405) Normal PLT MORPHOLOGY (BEAKER) (test dukc=069) Normal RBC MORPHOLOGY (BEAKER) (test dska=690) Normal SEDIMENTATION [id number] 10:27:00 Test Item Value Reference Range Comments SEDIMENTATION RATE, ERYTHROCYTE (BEAKER) (test 79 mm/HR 0-20 qkss=100) HEMOGLOBIN [id number] 09:33:00 Test Item Value Reference Range Comments HEMOGLOBIN A1C (BEAKER) (test owbf=484) 9.8 % 4.3-6.1 VITAMIN [id number] 09:14:00 Test Item Value Reference Range Comments VITAMIN B12 (BEAKER) (test uhzp=840) 1790 pg/mL 213-816 TSH/FREE T4 IF [id number] 09:14:00 Test Item Value Reference Range Comments THYROID STIMULATING HORMONE (BEAKER) (test 1.08 uIU/mL 0.35-4.94 wytb=858) BASIC METABOLIC [id number] 08:52:00 Test Item Value Reference Range Comments SODIUM (BEAKER) (test 137 meq/L 136-145 xyxm=296) POTASSIUM (BEAKER) (test 4.7 meq/L 3.5-5.1 pdzw=381) CHLORIDE (BEAKER) (test 107 meq/L 98-107 liki=447) CO2 (BEAKER) (test 25 meq/L 22-29 ecmj=869) BLOOD UREA NITROGEN 18 mg/dL 7-21 (BEAKER) (test nqkn=085) CREATININE (BEAKER) (test 1.77 mg/dL 0.57-1.25 obzv=426) GLUCOSE RANDOM (BEAKER) 290 mg/dL 70-105 (test cply=744) CALCIUM (BEAKER) (test 8.0 mg/dL 8.4-10.2 dray=813) EGFR (BEAKER) (test mL/min/1.73 sq m INSUFFICIENT CLINICAL DATA jmzg=2794) TO CALCULATE ESTIMATED GFR. FastingLIPID [id number] 08:51:00 Test Item Value Reference Range Comments TRIGLYCERIDES (BEAKER) (test osku=063) 90 mg/dL CHOLESTEROL (BEAKER) (test ebuv=462) 143 mg/dL HDL CHOLESTEROL (BEAKER) (test nzrq=467) 44 mg/dL LDL CHOLESTEROL CALCULATED (BEAKER) (test 81 mg/dL nqiw=243) Triglyceride Reference Range: Low Risk <150 Borderline 150- 199 High Risk 200-499 Very High Risk >=500Cholesterol Reference Range: Low Risk <200 Borderline 200-239 High Risk > 240HDL Cholesterol Reference Range: Low Risk >=60 High Risk <40LDL Cholesterol Reference Range: Optimal <100 Near Optimal 100-129 Borderline 130-159 High 160-189 Very High >=190 FastingHCG, QUANTITATIVE, [id number] 01:43:00 Test Item Value Reference Range Comments GONADOTROPIN, CHORIONIC (HCG) QUANT (BEAKER) (test < mIU/mL 0-10 vqyi=808) Non- Females: <10 mIU/mL Females: Gestation Age Reference Range(mIU/mL) 0.2-1 Week 5-50 1-2 Weeks 50-500 2-3 Weeks 100-5,000 3-4Weeks 500-10,000 4 -5 Weeks 1,000-50,000 5-6 Weeks 10,000-100,000 6-8 Weeks 15,000-200,000 2-3 Months 10,000-100,000COMPREHENSIVE METABOLIC [id number] 21:57:00 Test Item Value Reference Range Comments TOTAL PROTEIN (BEAKER) 5.0 gm/dL 6.0-8.3 (test yukb=180) ALBUMIN (BEAKER) (test 2.1 g/dL 3.5-5.0 qapx=0194) ALKALINE PHOSPHATASE 106 U/L 40-150 (BEAKER) (test zbhq=014) BILIRUBIN TOTAL (BEAKER) 0.2 mg/dL 0.2-1.2 (test zrcg=649) SODIUM (BEAKER) (test 137 meq/L 136-145 hkwx=368) POTASSIUM (BEAKER) (test 4.7 meq/L 3.5-5.1 xmbk=192) CHLORIDE (BEAKER) (test 106 meq/L 98-107 tkkc=449) CO2 (BEAKER) (test 25 meq/L 22-29 pqnc=462) BLOOD UREA NITROGEN 21 mg/dL 7-21 (BEAKER) (test kvfg=429) CREATININE (BEAKER) (test 2.00 mg/dL 0.57-1.25 rrsv=664) GLUCOSE RANDOM (BEAKER) 285 mg/dL 70-105 (test ehgm=569) CALCIUM (BEAKER) (test 7.9 mg/dL 8.4-10.2 umxg=056) AST (SGOT) (CloudmachAKER) (test 16 U/L 5-34 zkcy=202) ALT (SGPT) (CloudmachAKER) (test 14 U/L 6-55 aave=002) EGFR (Woofound) (test mL/min/1.73 sq m INSUFFICIENT CLINICAL DATA nlpm=7353) TO CALCULATE ESTIMATED GFR. Unit CollectPOCT-GLUCOSE [id number] 21:50:00 Test Item Value Reference Range Comments POC-GLUCOSE METER (Woofound) 278 mg/dL 70-[address] [facility] [address] [facility] (test ysav=9822) [facility] [id number]
[2018-06-27] MEDS ORDERED: PANTOPRAZOLE 40 MG INJ ONE (18:15)
[2018-06-27] MEDS ORDERED: MORPHINE 4 MG/ML SYR ONE (18:42)
[2018-06-27] MEDS ORDERED: ONDANSETRON 4 MG/2 ML VIAL ONE (18:42)
[2018-06-27 19:01] LABS: Absolute Lymphocytes (CBC) 2.1 K/uL (0.7-4.9); Absolute Monocytes 0.7 K/uL (0.1-1.3); Absolute Neutrophil 6.5 K/uL (1.8-8.0); Basophils % 0.7 % (0-1.3); Eosinophils % 1.7 % (0-4.4); Hematocrit 36.9 % (36.0-45.0); Lymphocytes % 22.3 % (15.3-44.8); MCH 31.1 pg (27.0-35.0); MCV 90.7 fL (80-100); MPV 8.5 fL (7.6-11.3); Monocytes % 7.1 % (3.3-12.3); RBC Red Blood Cell Count 4.06 M/uL (3.86-4.86)
[2018-06-27 19:14] LABS: Albumin 1.7 g/dL (3.4-5.0); Bilirubin Direct 0.1 mg/dL (0-0.2); Bilirubin Total 0.4 mg/dL (0.2-1.0); Magnesium 2.1 mg/dL (1.8-2.4); Potassium 4.8 mmol/L (3.5-5.1); Protein, Total 5.1 g/dL (6.4-8.2)
--- NOTE | 2018-06-27 20:01 | RAD REPORT ---
EXAM DESCRIPTION: RAD - Chest Single View - 06/27/2018 7:27 pm CLINICAL HISTORY: Abdominal pain COMPARISON: January 2018 TECHNIQUE: AP portable chest image was obtained 1908 hours . FINDINGS: Lungs are clear. Heart and vasculature are normal. No measurable pleural effusion and no p neumothorax. No acute bony abnormality seen. No acute aortic findings suspected. IMPRESSION: No acute cardiopulmonary process. No significant interval change.
--- NOTE | 2018-06-27 20:47 | RAD REPORT ---
EXAM DESCRIPTION: CT - Abdomen Pelvis Wo Contrast - 06/27/2018 8:34 pm CLINICAL HISTORY: Abdominal pain, periumbilical pain, recent endoscopy COMPARISON: CT May 2016 TECHNIQUE: Axial [address] imaging of the abdomen and pelvis was performed without IV contrast. No IV contrast was given because of allergy, abnormal renal function, patient refusal or physician re quest. Oral contrast was given. All CT scans are performed using dose optimization technique as appropriate and may include automated exposure control or mA/KV adjustment according to patient size. FINDINGS: No suspicious findings in the lung bases. The liver, spleen and pancreas show no suspicious findings on non-contrast imaging. Cholecystectomy c lips are present. No biliary tree dilatation. No hydronephrosis or suspicious renal mass. No significant adrenal finding. Isodense renal masses an d pyelonephritis cannot be excluded in the absence of IV contrast. The urinary bladder is without sig nificant finding. Prominent uterus is present containing multiple partially calcified fibroids. Large st is 4 cm in the fundus. No suspicious ovarian finding. No dilated bowel loops or bowel wall thickening. Oral contrast has reached the mid small bowel level. No free air, free fluid or inflammatory stranding. No endoscopy related abnormality seen. No hernia, mass or bulky lymphadenopathy. No suspicious bony findings. IMPRESSION: Non-contrast enhanced CT abdomen and pelvis imaging show no significant or suspicious fi nding. Above detailed findings are not substantially different from 2016. Full assessment is limited is the absence of IV contrast.
[2018-06-27] MEDS ORDERED: LIDOCAINE VISCOUS 2% SOLN 15 ML UDC ONE (21:41)
[2018-06-27] MEDS ORDERED: MAGNE/ALUM HYDROXD 30 ML UCUP ONE (21:41)
[2018-06-27] MEDS ORDERED: NA CHLORIDE 0.9% 1,000 ML ONE (21:41)
--- NOTE | 2018-06-27 22:27 | ER ---
Nurse's Notes [facility] Name: Archana Woo Age: 42 yrs Sex: Female : 1975 Arrival Date: 06/27/2018 Time: 17:29 Bed 19 Private MD: Diagnosis: Nausea and vomiting;Unspecified abdominal pain Presentation: 06/27 17:29 Presenting complaint: EMS states: called out for N/V and abdominal pain near umbilical em area, pt had a endoscopy procedure done yesterday because "parts of her stomach aren't working" also reports throat pain. Transition of care: patient was not received from another setting of care. Onset of symptoms was June 27, 2018. Risk Assessment: Do you want to hurt yourself or someone else? Patient reports no desire to harm self or others. Initial Sepsis Screen: Does the patient meet any 2 criteria? No. Patient's initial sepsis screen is negative. Does the patient have a suspected source of infection? No. Patient's initial sepsis screen is negative. Care prior to arrival: None. 17:29 Method Of Arrival: EMS: [facility] em 17:51 Acuity: TARUN 3 iw Triage Assessment: 17:35 General: Appears uncomfortable, Behavior is calm, cooperative. Pain: Complains of pain em in umbilical area. 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 - Social history:: Smoking status: Patient uses tobacco products, denies chronic smoking, but will smoke occasionally. - Ebola Screening: : Patient negative for fever greater than or equal to 101.5 degrees Fahrenheit, and additional compatible Ebola Virus Disease symptoms Patient denies exposure to infectious person Patient denies travel to an Ebola-affected area in the 21 days before illness onset No symptoms or risks identified at this time. Screenin:37 Abuse screen: Denies threats or abuse. Nutritional screening: No deficits noted. em Tuberculosis screening: No symptoms or risk factors identified. Fall Risk Ambulatory Aid- Crutches/Cane/Walker (15 pts). Gait- Weak (10 pts.). Total Lr Fall Scale indicates Low Risk Score (25-44 pts). Side Rails Up X 2 Placed close to Nursing Station Frequent Obs/Assesments occuring Family Present and informed to notify staff if they need to leave bedside. Assessment: 17:29 General: Appears uncomfortable, Behavior is calm, cooperative, appropriate for age. em Pain: Complains of pain in umbilical area Pain currently is 7 out of 10 on a pain scale. Quality of pain is described as sharp. Neuro: Level of Consciousness is awake, alert, obeys commands, Oriented to person, place, time, situation. Cardiovascular: Capillary refill < 3 seconds Patient's skin is warm and dry. Respiratory: Airway is patent Respiratory effort is even, unlabored, Respiratory pattern is regular, symmetrical, Breath sounds are clear bilaterally. GI: Abdomen is flat, Bowel sounds present X 4 quads. Abd is soft X 4 quads Abdomen is tender to palpation X 4 quads. Reports nausea, vomiting. : No signs and/or symptoms were reported regarding the genitourinary system. EENT: No signs and/or symptoms were reported regarding the EENT system. Derm: Skin is intact, Skin is pink, warm \\T\\ dry. Musculoskeletal: Capillary refill < 3 seconds, Range of motion: intact in all extremities. 18:20 Reassessment: Patient appears in no apparent distress at this time. Patient and/or em family updated on plan of care and expected duration. Pain level reassessed. Patient is alert, oriented x 3, equal unlabored respirations, skin warm/dry/pink. 19:00 Reassessment: CT notified of pt finishing oral contrast. jd3 19:08 Reassessment: Patient appears in no apparent distress at this time. Patient and/or em family updated on plan of care and expected duration. Pain level reassessed. Patient is alert, oriented x 3, equal unlabored respirations, skin warm/dry/pink. rates pain 5/10 Patient states feeling better. 19:10 Reassessment: I agree with previous assessment. hb 19:21 Reassessment: Patient appears in no apparent distress at this time. No changes from jd3 previously documented assessment. Patient and/or family updated on plan of care and expected duration. Pain level reassessed. Patient is alert, oriented x 3, equal unlabored respirations, skin warm/dry/pink. 20:38 Reassessment: Patient appears in no apparent distress at this time. No changes from jd3 previously documented assessment. Patient and/or family updated on plan of care and expected duration. Pain level reassessed. Patient is alert, oriented x 3, equal unlabored respirations, skin warm/dry/pink. 21:49 Reassessment: Patient appears in no apparent distress at this time. No changes from jd3 previously documented assessment. Patient and/or family updated on plan of care and expected duration. Pain level reassessed. Patient is alert, oriented x 3, equal unlabored respirations, skin warm/dry/pink. 22:50 Reassessment: Patient appears in no apparent distress at this time. Patient and/or jd3 family updated on plan of care and expected duration. Pain level reassessed. Patient is alert, oriented x 3, equal unlabored respirations, skin warm/dry/pink. Patient states feeling better. Vital Signs: 17:35 BP 175 / 89; Pulse 95; Resp 18; Pulse Ox 100% on R/A; Weight 72.57 kg; Height 5 ft. 4 em in. (162.56 cm); Pain 7/10; 18:32 BP 175 / 95; Pulse 87; Resp 15; Pulse Ox 100% on R/A; Pain 7/10; iw 18:52 BP 180 / 92; Pulse 89; Resp 20; Pulse Ox 100% on R/A; mh5 19:22 BP 167 / 89; Pulse 85; Resp 16 S; Pulse Ox 100% on R/A; jd3 20:38 BP 143 / 76; Pulse 79; Resp 16 S; Pulse Ox 100% on R/A; jd3 21:49 BP 124 / 65; Pulse 94; Resp 16 S; Pulse Ox 100% on R/A; jd3 22:50 BP 163 / 71; Pulse 83; Resp 16 S; Pulse Ox 100% on R/A; jd3 17:35 Body Mass Index 27.46 (72.57 kg, 162.56 cm) em ED Course: 17:29 Patient arrived in ED. em 17:35 Arm band placed on. em 17:37 Patient has correct armband on for positive identification. Allergy band placed. Bed in em low position. Call light in reach. Adult w/ patient. 17:38 Khai Lawler LVN is Primary Nurse. em 17:50 Zelalem Man PA is PHCP. cp 17:50 Matt Lemons MD is Attending Physician. cp 17:51 Triage completed. iw 18:52 Warm blanket given. Pulse ox on. NIBP on. mh5 19:00 IV is patent, is intact, with fluids infusing freely, with good blood return, placed by jd3 day shift staff.. 19:27 XRAY Chest (1 view) In Process Unspecified. EDMS 20:34 CT Abd/Pelvis - Without Cont In Process Unspecified. EDMS 20:34 CT completed. Patient tolerated procedure well. Patient moved back from CT. bq 22:48 No provider procedures requiring assistance completed. IV discontinued, intact, jd3 bleeding controlled, No redness/swelling at site. Pressure dressing applied. Administered Medications: 18:28 Drug: ProTONIX 40 mg Route: IVP; Site: right forearm; iw 18:44 Follow up: Response: No adverse reaction iw 18:41 Drug: morphine 4 mg Route: IVP; Site: right forearm; iw 21:51 Follow up: Response: No adverse reaction jd3 18:41 Drug: Zofran 4 mg Route: IVP; Site: right forearm; iw 21:51 Follow up: Response: No adverse reaction jd3 21:45 Drug: NS 0.9% 1000 ml Route: IV; Rate: 1 bolus; Site: right forearm; jd3 22:51 Follow up: Response: No adverse reaction; IV Status: Completed infusion; IV Intake: jd3 1000ml 21:45 Drug: GI Cocktail without - (Maalox Suspension 30 ml, Lidocaine Liquid 2 % 15 jd3 ml) Route: PO; 22:51 Follow up: Response: No adverse reaction jd3 Intake: 22:51 IV: 1000ml; Total: 1000ml. jd3 Outcome: 22:27 Discharge ordered by . cp 22:50 Discharged to home via wheelchair, with family. jd3 22:50 Condition: stable 22:50 Discharge instructions given to patient, family, Instructed on discharge instructions, follow up and referral plans. medication usage, Demonstrated understanding of instructions, follow-up care, medications, Prescriptions given X 4. 22:52 Patient left the ED. jd3 Signatures: Dispatcher [employer] EDMS Estela Duque bq Khai Lawler, CANDY PACKER CANDY PACKER em Margarita Wheatley, RN RN iw Zelalem Man PA PA cp Baxter, Heather, ARMOND RN Ann Castillo [facility] Jaspal Lucero RN RN jd3 Corrections: (The following items were deleted from the chart) 19:19 17:29 Presenting complaint: EMS states: called out for N/V and abdominal pain near em umbilical area, pt had a endoscopy procedure done yesterday because "part of her stomach aren't working" also reports throat pain em 22:50 19:00 Missed attempt(s): 22 gauge in right forearm. placed by day shift staff. jd3 jd3
--- NOTE | 2018-06-27 22:27 | EDPHYS ---
Physician Documentation [facility] Name: Archana Woo Age: 42 yrs Sex: Female : 1975 Arrival Date: 06/27/2018 Time: 17:29 Bed 19 Private MD: ED Physician Matt Lemons HPI: 06/27 17:55 This 42 yrs old Female presents to ER via EMS with complaints of Abdominal cp Pain, Nausea/Vomiting. 17:55 The patient presents with abdominal pain that is diffuse. Onset: The symptoms/episode cp began/occurred today. The symptoms radiate to chest. Associated signs and symptoms: Pertinent positives: nausea and vomiting, Pertinent negatives: constipation, diarrhea, fever, vomiting blood. 17:55 Severity of pain: in the emergency department the pain is unchanged despite home cp interventions. Patient reports having endoscopy yesterday by physician in [place]. 17:55 The symptoms are described as sharp. 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 - Social history:: Smoking status: Patient uses tobacco products, denies chronic smoking, but will smoke occasionally. - Ebola Screening: : Patient negative for fever greater than or equal to 101.5 degrees Fahrenheit, and additional compatible Ebola Virus Disease symptoms Patient denies exposure to infectious person Patient denies travel to an Ebola-affected area in the 21 days before illness onset No symptoms or risks identified at this time. ROS: 18:00 Constitutional: Negative for body aches, chills, fever. cp 18:00 Eyes: Negative for injury, pain, redness, and discharge. cp 18:00 ENT: Positive for sore throat, Negative for drainage from ear(s), ear pain, difficulty swallowing, difficulty handling secretions. 18:00 Cardiovascular: Positive for chest pain, of the retrosternal, Negative for edema, palpitations. 18:00 Respiratory: Negative for cough, shortness of breath, wheezing. 18:00 Abdomen/GI: Positive for abdominal pain, nausea and vomiting, Negative for constipation, anorexia, dysphagia, black/tarry stool, rectal bleeding. 18:00 Back: Negative for pain at rest, pain with movement, radiated pain. 18:00 : Negative for urinary symptoms. 18:00 Skin: Negative for cellulitis, rash. 18:00 Neuro: Negative for altered mental status, headache, weakness. 18:00 All other systems are negative. Exam: 18:08 Constitutional: The patient appears in no acute distress, alert, awake, cp non-diaphoretic, non-toxic, well developed, well nourished, uncomfortable. 18:08 Head/Face: Normocephalic, atraumatic. cp 18:08 Eyes: Periorbital structures: appear normal, Conjunctiva: normal, no exudate, no injection, Sclera: no appreciated abnormality, Lids and lashes: appear normal, bilaterally. 18:08 ENT: External ear(s): are unremarkable, Ear canal(s): are normal, clear, TM's: dullness, bilaterally, Nose: is normal, Mouth: Lips: dry, Oral mucosa: pink and intact, moist, Posterior pharynx: is normal, airway is patent, no erythema, no exudate, Voice: is normal. 18:08 Neck: External neck: is normal, ROM/movement: is normal, is supple, without pain, no range of motions limitations, no meningismus, no nuchal rigidity. 18:08 Chest/axilla: Inspection: normal, Palpation: is normal, no crepitus, no tenderness. 18:08 Cardiovascular: Rate: normal, Rhythm: regular, Edema: is not appreciated, JVD: is not appreciated. 18:08 Respiratory: the patient does not display signs of respiratory distress, Respirations: normal, no use of accessory muscles, no retractions, no splinting, no tachypnea, labored breathing, is not present, Breath sounds: are clear throughout, no decreased breath sounds, no stridor, no wheezing. 18:08 Abdomen/GI: Inspection: abdomen appears normal, Bowel sounds: active, all quadrants, Palpation: soft, in all quadrants, moderate abdominal tenderness, in all quadrants, rebound tenderness, is not appreciated, voluntary guarding, is elicited in all quadrants. 18:08 Back: pain, is absent, ROM is normal, vertebral tenderness, is not appreciated. 18:08 Skin: cellulitis, is not appreciated, no rash present. 18:08 Neuro: Orientation: to person, place \T\ time. Mentation: is normal, Motor: moves all fours, strength is normal. Vital Signs: 17:35 BP 175 / 89; Pulse 95; Resp 18; Pulse Ox 100% on R/A; Weight 72.57 kg; Height 5 ft. 4 em in. (162.56 cm); Pain 7/10; 18:32 BP 175 / 95; Pulse 87; Resp 15; Pulse Ox 100% on R/A; Pain 7/10; iw 18:52 BP 180 / 92; Pulse 89; Resp 20; Pulse Ox 100% on R/A; mh5 19:22 BP 167 / 89; Pulse 85; Resp 16 S; Pulse Ox 100% on R/A; jd3 20:38 BP 143 / 76; Pulse 79; Resp 16 S; Pulse Ox 100% on R/A; jd3 21:49 BP 124 / 65; Pulse 94; Resp 16 S; Pulse Ox 100% on R/A; jd3 22:50 BP 163 / 71; Pulse 83; Resp 16 S; Pulse Ox 100% on R/A; jd3 17:35 Body Mass Index 27.46 (72.57 kg, 162.56 cm) em MDM: 17:50 Patient medically screened. cp 18:00 Differential diagnosis: bowel obstruction, gastritis, GI Bleed, non-specific abd pain, cp pancreatitis, Peptic Ulcer Disease, Perf. Duodenal Ulcer, Perf. Gastric Ulcer, Ureterolithiasis, urinary tract infection, dehydration. 22:25 Data reviewed: vital signs, nurses notes, lab test result(s), radiologic studies, CT cp scan, plain films. 22:25 Counseling: I had a detailed discussion with the patient and/or guardian regarding: the cp historical points, exam findings, and any diagnostic results supporting the discharge/admit diagnosis, lab results, radiology results, to return to the emergency department if symptoms worsen or persist or if there are any questions or concerns that arise at home. Response to treatment: the patient's symptoms have markedly improved after treatment, VSS. Pain and nausea improved and vomiting resolved. Patient observed tolerating po fluids. Will discharge to home for continued monitoring. 06/27 17:58 Order name: Basic Metabolic Panel; Complete Time: 19:18 cp 06/27 20:56 Interpretation: Normal except: CL 112; GLUC 178; BUN 25; CRE 2.60; GFR 20; CA 8.2. 06/27 17:58 Order name: CBC with Diff; Complete Time: 19:18 06/27 17:58 Order name: Creatinine for Radiology; Complete Time: 19:18 06/27 17:58 Order name: Hepatic Function; Complete Time: 19:18 06/27 20:58 Interpretation: Normal except: ALT 103; ALK 119; TP 5.1; ALB 1.7; A/G 0.5. 06/27 17:58 Order name: Lipase; Complete Time: 19:18 06/27 17:58 Order name: Magnesium; Complete Time: 19:18 06/27 17:58 Order name: XRAY Chest (1 view); Complete Time: 20:55 06/27 19:20 Order name: CT Abd/Pelvis - Without Cont; Complete Time: 20:55 06/27 17:58 Order name: IV Saline Lock; Complete Time: 18:27 06/27 17:58 Order name: Labs collected and sent; Complete Time: 18:27 06/27 18:43 Order name: Labs - recollect needed; Complete Time: 18:55 06/27 20:59 Order name: PO challenge; Complete Time: 21:57 cp Administered Medications: 18:28 Drug: ProTONIX 40 mg Route: IVP; Site: right forearm; iw 18:44 Follow up: Response: No adverse reaction iw 18:41 Drug: morphine 4 mg Route: IVP; Site: right forearm; iw 21:51 Follow up: Response: No adverse reaction jd3 18:41 Drug: Zofran 4 mg Route: IVP; Site: right forearm; iw 21:51 Follow up: Response: No adverse reaction jd3 21:45 Drug: NS 0.9% 1000 ml Route: IV; Rate: 1 bolus; Site: right forearm; jd3 22:51 Follow up: Response: No adverse reaction; IV Status: Completed infusion; IV Intake: jd3 1000ml 21:45 Drug: GI Cocktail without - (Maalox Suspension 30 ml, Lidocaine Liquid 2 % 15 jd3 ml) Route: PO; 22:51 Follow up: Response: No adverse reaction jd3 Disposition: 06/27/18 22:27 Discharged to Home. Impression: Nausea and vomiting, Unspecified abdominal pain. - Condition is Stable. - Discharge Instructions: Abdominal Pain, Adult, Nausea and Vomiting, Adult. - Prescriptions for Bentyl 20 mg Oral Tablet - take 1 tablet by ORAL route every 6 hours As needed; 20 tablet. Pepcid 20 mg Oral Tablet - take 1 tablet by ORAL route every 12 hours for 10 days; 20 tablet. Phenergan 25 mg Rectal Suppository - insert 1 suppository by RECTAL route every 6 hours As needed; 12 suppository. promethazine 25 mg Oral Tablet - take 1 tablet by ORAL route every 6 hours As needed; 20 tablet. - Medication Reconciliation Form, Thank You Letter, Antibiotic Education, Prescription Opioid Use form. - Follow up: Private Physician; When: 1 - 2 days; Reason: Recheck today's complaints. - Problem is new. - Symptoms have improved. Signatures: Dispatcher [employer] EDTN Jil Baird Edgar, MANAGER UNDERWRITING MANAGER UNDERWRITING em Margarita Wheatley, ARMOND RN iw Zelalem Man PA PA cp Jaspal Lucero RN RN jd3 Corrections: (The following items were deleted from the chart) 19:25 18:31 Abdomen Pelvis W Con+CT.RAD.BRZ ordered. [facility] EDTN 20:56 20:56 Normal except: CL 112; GLUC 178; BUN 25; CRE 2.60; GFR 20. cp cp 22:52 22:27 06/27/2018 22:27 Discharged to Home. Impression: Nausea and vomiting; Unspecified jd3 abdominal pain. Condition is Stable. Forms are Medication Reconciliation Form, Thank You Letter, Antibiotic Education, Prescription Opioid Use. Follow up: Private Physician; When: 1 - 2 days; Reason: Recheck today's complaints. Problem is new. Symptoms have improved. cp
[2018-06-28 01:23] VITALS: O2SAT 100
[2018-06-28 01:30] VITALS: BP 163/71
== END 2018-06-27 22:52 | disposition home or self-care (01) ==
LOC: ER 17:25
DX: R10.9 Unspecified abdominal pain (principal); I10 Essential (primary) hypertension; Z72.0 Tobacco use; Z85.850 Personal history of malignant neoplasm of thyroid
CPT/HCPCS: 36415; 71045; 74176; 80048; 80076; 83690; 83735; 85025; 96361; 96374; 96375; 99284; C9113; J2405; J7030

== ENCOUNTER 2018-07-03 18:52 | Observation (INO) | payer OTHER ==
--- OUTSIDE RECORDS SUMMARY | 2018-07-03 18:54 | XMS REPORT | Clinical Summary ---
:1975 Author Organization [facility] Address [address] [place] [address] Care Team Providers Name Role Phone Unavailable [...] Not on file Results Not on fileafter 07/02/2017 Insurance Payer Benefit Plan / Group Subscriber ID Type Phone Address [employer] - MEDICARE UNITED MEDICARE HMO xxxxxxxxx [facility] Advance Directives For more information, please contact:[address] [phone] Code Status Date Activated Date Inactivated Comments Full Code 03/14/2017 8:30 PM 03/20/2017 12:11 PM This code status was determined by: Patient
--- OUTSIDE RECORDS SUMMARY | 2018-07-03 18:55 | XMS REPORT ---
:1975 [facility] Address [address] [place] [address] Dr. Soto [address] [place] [id number] Care Team Providers Name Role Phone ARON [...] Range Comments FACTOR V LEIDEN (BEAKER) (test arob=179) Negative for the R506Q (Factor V Leiden) mutation [id number] (BEAKER) (test Martínez Wang MD (electronic signature) abwx=2751) This test is a genotyping assay which [...] [facility]. It has not been cleared or approved by the U.S. Food and Drug Administration (FDA), since FDA approval is not required for clinical use of the test. Validation was done as required by the Clinical Laboratory Improvement Amendments of 1988.POCT-GLUCOSE [id number] 07:28:00 Test Item Value Reference Range Comments POC-GLUCOSE METER (BEAKER) 200 mg/dL 70-110 TESTED AT [facility] [address] (test rfza=3358) [facility] [address] POCT-GLUCOSE [id number] 21:18:00 Test Item Value Reference Range Comments POC-GLUCOSE METER (BEAKER) 211 mg/dL 70-110 TESTED AT [facility] [address] [place] [address] (test fkmo=4668) [facility] [address] PROTEIN, RANDOM [id number] 19:43:00 Test Item Value Reference Range Comments PROTEIN, URINE (BEAKER) (test xbso=1484) 286 mg/dL 0-14 CREATININE, RANDOM [id number] 18:27:00 Test Item Value Reference Range Comments CREATININE URINE (BEAKER) (test uzbq=575) 29.3 mg/dL Reference Range: No NormalsDILUTE SHIRA VIPER VENOM (DRVV)2017-03-19 12:47:00 Test Item Value Reference Range Comments PROTIME (BEAKER) (test 11.3 seconds 11.7-14.7 pyip=100) INR (BEAKER) (test ulhq=098) 0.8 <=5.9 PARTIAL THROMBOPLASTIN TIME 28.0 seconds 22.5-36.0 (BEAKER) (test zwkw=686) DRVV INTERPRETATION (BEAKER) Normal DRVV Results (test uqgl=8464) DRVV INTERPRETATION (BEAKER) Normal Hexagonal Phospholipid (test gril=372909) [id number] (BEAKER) Martínez Wang MD (electronic (test xlcn=2300) signature) DRVV SCREEN RATIO (BEAKER) 0.84 <1.20 (test rpbd=2635) Effective 12/20/2013: Test Method ChangeDRVV Screen Ratio, DRVV 1/1 Screen Ratio, DRVV Confirm Ratio,DRVV Normalized Ratio Reference Range: <1.2Protime Reference Range ChangeNew: 11.7-14.7 Previous: 9.8-12.0PTT Reference Range ChangeNew: 22.5-36.0 Previous: 25.8-34.5URINE [id number] 11:40:00 Test Item Value Reference Range Comments CULTURE (BEAKER) (test 20-29,000 col/mL skin lei kizp=9880) POCT-GLUCOSE [id number] 08:33:00 Test Item Value Reference Range Comments POC-GLUCOSE METER (BEAKER) 293 mg/dL 70-110 TESTED AT [facility] [address] (test uprr=6248) [facility] [address] VITAMIN D, [id number] 07:49:00 Test Item Value Reference Range Comments VITAMIN D 25-OH (BEAKER) (test ykzr=0130) < ng/mL 13.0-47.8 CBC W/PLT COUNT & AUTO [id number] 05:59:00 Test Item Value Reference Range Comments WHITE BLOOD CELL COUNT (BEAKER) (test wedn=714) 9.4 K/ L 3.5-10.5 RED BLOOD CELL COUNT (BEAKER) (test ewrp=688) 4.16 M/ L 3.93-5.22 HEMOGLOBIN (BEAKER) (test dvpo=447) 12.7 GM/DL 11.2-15.7 HEMATOCRIT (BEAKER) (test ccow=289) 38.0 % 34.1-44.9 MEAN CORPUSCULAR VOLUME (BEAKER) (test oajm=497) 91.3 fL 79.4-94.8 MEAN CORPUSCULAR HEMOGLOBIN (BEAKER) (test 30.5 pg 25.6-32.2 zkvf=426) MEAN CORPUSCULAR HEMOGLOBIN CONC (BEAKER) (test 33.4 GM/DL 32.2-35.5 icfo=991) RED CELL DISTRIBUTION WIDTH (BEAKER) (test 12.6 % 11.7-14.4 ynmc=141) PLATELET COUNT (BEAKER) (test ashj=790) 329 K/CU MM 150-450 MEAN PLATELET VOLUME (BEAKER) (test qpel=298) 10.0 fL 9.4-12.3 NUCLEATED RED BLOOD CELLS (BEAKER) (test 0 /100 WBC 0-0 imyp=445) NEUTROPHILS RELATIVE PERCENT (BEAKER) (test 68 % akmg=937) LYMPHOCYTES RELATIVE PERCENT (BEAKER) (test 23 % mcsc=782) MONOCYTES RELATIVE PERCENT (BEAKER) (test 7 % lmyq=234) EOSINOPHILS RELATIVE PERCENT (BEAKER) (test 1 % xyfc=017) BASOPHILS RELATIVE PERCENT (BEAKER) (test 1 % kzaq=228) NEUTROPHILS ABSOLUTE COUNT (BEAKER) (test 6.35 K/ L 1.56-6.13 xqun=122) LYMPHOCYTES ABSOLUTE COUNT (BEAKER) (test 2.16 K/ L 1.18-3.74 zqwq=691) MONOCYTES ABSOLUTE COUNT (BEAKER) (test 0.68 K/ L 0.24-0.36 qcqb=482) EOSINOPHILS ABSOLUTE COUNT (BEAKER) (test 0.10 K/ L 0.04-0.36 ddta=581) BASOPHILS ABSOLUTE COUNT (BEAKER) (test 0.06 K/ L 0.01-0.08 doii=021) IMMATURE GRANULOCYTES-RELATIVE PERCENT (BEAKER) 0 % 0-1 (test kqmi=7468) BASIC METABOLIC [id number] 05:38:00 Test Item Value Reference Range Comments SODIUM (BEAKER) (test 135 meq/L 136-145 mcij=826) POTASSIUM (BEAKER) (test 4.1 meq/L 3.5-5.1 gbed=372) CHLORIDE (BEAKER) (test 102 meq/L 98-107 mnhb=911) CO2 (BEAKER) (test 25 meq/L 22-29 srjr=417) BLOOD UREA NITROGEN 12 mg/dL 7-21 (BEAKER) (test gqgi=063) CREATININE (BEAKER) (test 1.99 mg/dL 0.57-1.25 fvfn=551) GLUCOSE RANDOM (BEAKER) 290 mg/dL 70-105 (test neio=488) CALCIUM (BEAKER) (test 8.7 mg/dL 8.4-10.2 ubjs=635) EGFR (BEAKER) (test 27 mL/min/1.73 sq m ESTIMATED GFR IS NOT zpfo=7387) ACCURATE CREATININE CLEARANCE IN PREDICTING GLOMERULAR FILTRATION RATE. ESTIMATED GFR IS NOT APPLICABLE FOR DIALYSIS PATIENTS. [id number] 05:37:00 Test Item Value Reference Range Comments PHOSPHORUS (BEAKER) (test briz=335) 4.1 mg/dL 2.3-4.7 [id number] 05:37:00 Test Item Value Reference Range Comments MAGNESIUM (BEAKER) (test sbra=001) 1.7 mg/dL 1.6-2.6 PTH, [id number] 05:34:00 Test Item Value Reference Range Comments PARATHYROID HORMONE INTACT (BEAKER) (test 57.2 pg/mL 8.5-72.5 yvri=661) Effective 07/04/2014: Reference Range ChangeNew: 8.5-72.5 Previous: 15.0- 90.0CARDIOLIPIN ANTIBODIES, IGG AND [id number] 22:36:00 Test Item Value Reference Range Comments ANTICARDIOLIPIN IGG ANTIBODY (BEAKER) (test < GPL xgbc=422) ANTICARDIOLIPIN IGM ANTIBODY (BEAKER) (test 2.8 MPL hbjj=186) Anticardiolipin IgG Result Interpretation:NEG: <20 GPL; U/mlPOS: >/=20 GPL; U/mlAnticardiolipin IgM Result Interpretation:NEG: <20 MPL; U/mlPOS: >/=20 MPL; U/mlPOCT-GLUCOSE [id number] 21:25:00 Test Item Value Reference Range Comments POC-GLUCOSE METER (BEAKER) 198 mg/dL 70-110 TESTED AT [address] (test cpir=4742) [facility] [address] POCT-GLUCOSE [id number] 16:29:00 Test Item Value Reference Range Comments POC-GLUCOSE METER (BEAKER) 296 mg/dL 70-110 TESTED AT [address] (test ixgv=2194) [place] [address] ANTI-NUCLEAR ANTIBODY (MARY)2017-03-18 15:30:00 Test Item Value Reference Range Comments ANTI-NUCLEAR ANTIBODY (MARY) (BEAKER) (test Negative Negative asfs=923) HEXAGONAL [id number] 13:21:00 Test Item Value Reference Range Comments HEXAGONAL PHOSPHOLIPID (BEAKER) (test mknu=3619) Negative POCT-GLUCOSE [id number] 12:15:00 Test Item Value Reference Range Comments POC-GLUCOSE METER (BEAKER) 140 mg/dL 70-110 TESTED AT [address] (test gxpf=1907) [facility] [address] PROTEIN C [id number] 11:44:00 Test Item Value Reference Range Comments PROTEIN C ACTIVITY (BEAKER) (test elpw=068) 155.0 % 70.0-130.0 Effective 12/20/2013: Reference Range Change-Adult onlyNew: 70.0-130.0 Previous : 70.0-140.0See Protein C Antigen.ANTITHROMBIN [id number] 11:43:00 Test Item Value Reference Range Comments ANTITHROMBIN III ACTIVITY (BEAKER) (test camq=274) 87.0 % 80.0-120.0 Effective 12/20/2013: Reference Range Change-Adult onlyNew: 80.0-120.0 Previous : 90.0-128.0POCT-GLUCOSE [id number] 08:17:00 Test Item Value Reference Range Comments POC-GLUCOSE METER (BEAKER) 107 mg/dL 70-110 TESTED AT [facility] [address] (test wgcz=3926) [facility] [address] BASIC METABOLIC [id number] 06:32:00 Test Item Value Reference Range Comments SODIUM (BEAKER) (test 136 meq/L 136-145 bdvz=609) POTASSIUM (BEAKER) (test 3.6 meq/L 3.5-5.1 vabs=591) CHLORIDE (BEAKER) (test 104 meq/L 98-107 csvg=069) CO2 (BEAKER) (test 23 meq/L 22-29 ojzi=352) BLOOD UREA NITROGEN 11 mg/dL 7-21 (BEAKER) (test rdbo=819) CREATININE (BEAKER) (test 1.68 mg/dL 0.57-1.25 gimu=215) GLUCOSE RANDOM (BEAKER) 99 mg/dL 70-105 (test rwlp=074) CALCIUM (BEAKER) (test 8.4 mg/dL 8.4-10.2 bqgx=973) EGFR (BEAKER) (test 33 mL/min/1.73 sq m ESTIMATED GFR IS NOT flhx=0878) ACCURATE CREATININE CLEARANCE IN PREDICTING GLOMERULAR FILTRATION RATE. ESTIMATED GFR IS NOT APPLICABLE FOR DIALYSIS PATIENTS. CBC W/PLT COUNT & AUTO [id number] 05:56:00 Test Item Value Reference Range Comments WHITE BLOOD CELL COUNT (BEAKER) (test yqck=674) 11.7 K/ L 3.5-10.5 RED BLOOD CELL COUNT (BEAKER) (test pcal=686) 3.95 M/ L 3.93-5.22 HEMOGLOBIN (BEAKER) (test uibq=130) 12.1 GM/DL 11.2-15.7 HEMATOCRIT (BEAKER) (test wspi=355) 36.3 % 34.1-44.9 MEAN CORPUSCULAR VOLUME (BEAKER) (test lvak=649) 91.9 fL 79.4-94.8 MEAN CORPUSCULAR HEMOGLOBIN (BEAKER) (test 30.6 pg 25.6-32.2 xpch=227) MEAN CORPUSCULAR HEMOGLOBIN CONC (BEAKER) (test 33.3 GM/DL 32.2-35.5 gaga=661) RED CELL DISTRIBUTION WIDTH (BEAKER) (test 12.7 % 11.7-14.4 zvsa=621) PLATELET COUNT (BEAKER) (test pqmd=572) 349 K/CU MM 150-450 MEAN PLATELET VOLUME (BEAKER) (test mmdm=436) 10.8 fL 9.4-12.3 NUCLEATED RED BLOOD CELLS (BEAKER) (test 0 /100 WBC 0-0 dwju=826) NEUTROPHILS RELATIVE PERCENT (BEAKER) (test 59 % xmya=529) LYMPHOCYTES RELATIVE PERCENT (BEAKER) (test 31 % pqdm=422) MONOCYTES RELATIVE PERCENT (BEAKER) (test 8 % wufw=240) EOSINOPHILS RELATIVE PERCENT (BEAKER) (test 2 % wylz=801) BASOPHILS RELATIVE PERCENT (BEAKER) (test 1 % fypw=333) NEUTROPHILS ABSOLUTE COUNT (BEAKER) (test 6.87 K/ L 1.56-6.13 erdj=619) LYMPHOCYTES ABSOLUTE COUNT (BEAKER) (test 3.57 K/ L 1.18-3.74 cing=441) MONOCYTES ABSOLUTE COUNT (BEAKER) (test 0.90 K/ L 0.24-0.36 kydu=951) EOSINOPHILS ABSOLUTE COUNT (BEAKER) (test 0.24 K/ L 0.04-0.36 zjos=671) BASOPHILS ABSOLUTE COUNT (BEAKER) (test 0.06 K/ L 0.01-0.08 qswk=880) IMMATURE GRANULOCYTES-RELATIVE PERCENT (BEAKER) 0 % 0-1 (test xuca=9990) POCT-GLUCOSE [id number] 04:32:00 Test Item Value Reference Range Comments POC-GLUCOSE METER (BEAKER) 107 mg/dL 70-110 TESTED AT [address] (test qygj=5669) [facility] [address] POCT-GLUCOSE [id number] 22:21:00 Test Item Value Reference Range Comments POC-GLUCOSE METER (BEAKER) 118 mg/dL 70-110 TESTED AT [address] (test xwpw=0364) [facility] [address] POCT-GLUCOSE [id number] 21:22:00 Test Item Value Reference Range Comments POC-GLUCOSE METER (BEAKER) 52 mg/dL 70-110 Notified ARMOND REYNOSO/TESTED AT [facility] (test utjf=5171) [address] [facility] [address] MICROALBUMIN, RANDOM [id number] 17:57:00 Test Item Value Reference Range Comments MICROALBUMIN URINE (BEAKER) (test qjzb=0525) > mg/dL Reference Range: No NormalsURINALYSIS W/ [id number] 17:36:00 Test Item Value Reference Range Comments COLOR (BEAKER) (test wqbv=276) Light Yellow CLARITY (BEAKER) (test xawa=560) Clear SPECIFIC GRAVITY UA (BEAKER) (test kvdb=244) 1.005 1.001-1.035 PH UA (BEAKER) (test sjqj=366) 7.0 5.0-8.0 PROTEIN UA (BEAKER) (test mmxe=838) 300 mg/dL Negative GLUCOSE UA (BEAKER) (test pvus=774) 30 mg/dL Negative KETONES UA (BEAKER) (test qqug=447) Negative Negative BILIRUBIN UA (BEAKER) (test dizq=040) Negative Negative BLOOD UA (BEAKER) (test wcma=919) Negative Negative NITRITE UA (BEAKER) (test kqlb=830) Negative Negative LEUKOCYTE ESTERASE UA (BEAKER) (test kpcn=989) Negative Negative UROBILINOGEN UA (BEAKER) (test wukk=913) 0.2 mg/dL 0.2-1.0 RBC UA (BEAKER) (test dpkd=611) 1 /HPF WBC UA (BEAKER) (test xvof=980) < /HPF BACTERIA (BEAKER) (test ohpb=399) Rare SQUAMOUS EPITHELIAL (BEAKER) (test dyvu=011) 1 /HPF SOURCE(BEAKER) (test plwf=6268) Urine, Voided SCREEN, [id number] 17:36:00 Test Item Value Reference Range Comments TEST URINE (BEAKER) (test wofc=140) Negative CREATININE, RANDOM [id number] 17:35:00 Test Item Value Reference Range Comments CREATININE URINE (BEAKER) (test hsua=428) 33.9 mg/dL Reference Range: No NormalsSODIUM, RANDOM [id number] 17:35:00 Test Item Value Reference Range Comments SODIUM URINE (BEAKER) (test rhvv=736) 63 meq/L Reference Range: No NormalsPOCT-GLUCOSE [id number] 17:34:00 Test Item Value Reference Range Comments POC-GLUCOSE METER (BEAKER) 118 mg/dL 70-110 TESTED AT [address] (test qzuc=3715) [facility] [address] POCT-GLUCOSE [id number] 13:28:00 Test Item Value Reference Range Comments POC-GLUCOSE METER (BEAKER) 71 mg/dL 70-110 TESTED AT [address] (test ktze=7541) [facility] [address] POCT-GLUCOSE [id number] 10:37:00 Test Item Value Reference Range Comments POC-GLUCOSE METER (BEAKER) 144 mg/dL 70-110 TESTED AT [address] (test eenu=5290) [facility] [address] POCT-GLUCOSE [id number] 07:18:00 Test Item Value Reference Range Comments POC-GLUCOSE METER (BEAKER) 60 mg/dL 70-110 TESTED AT [address] (test palq=1553) [facility] [address] CBC W/PLT COUNT & AUTO [id number] 05:51:00 Test Item Value Reference Range Comments WHITE BLOOD CELL COUNT (BEAKER) (test jcav=524) 11.4 K/ L 3.5-10.5 RED BLOOD CELL COUNT (BEAKER) (test bmqz=332) 3.81 M/ L 3.93-5.22 HEMOGLOBIN (BEAKER) (test ifhe=624) 11.6 GM/DL 11.2-15.7 HEMATOCRIT (BEAKER) (test fztq=647) 34.5 % 34.1-44.9 MEAN CORPUSCULAR VOLUME (BEAKER) (test lobe=737) 90.6 fL 79.4-94.8 MEAN CORPUSCULAR HEMOGLOBIN (BEAKER) (test 30.4 pg 25.6-32.2 lhyj=169) MEAN CORPUSCULAR HEMOGLOBIN CONC (BEAKER) (test 33.6 GM/DL 32.2-35.5 ehfq=429) RED CELL DISTRIBUTION WIDTH (BEAKER) (test 12.6 % 11.7-14.4 isus=515) PLATELET COUNT (BEAKER) (test sjgw=958) 354 K/CU MM 150-450 MEAN PLATELET VOLUME (BEAKER) (test mpiq=124) 10.4 fL 9.4-12.3 NUCLEATED RED BLOOD CELLS (BEAKER) (test 0 /100 WBC 0-0 bkgx=948) NEUTROPHILS RELATIVE PERCENT (BEAKER) (test 72 % ojyu=485) LYMPHOCYTES RELATIVE PERCENT (BEAKER) (test 20 % hyvw=627) MONOCYTES RELATIVE PERCENT (BEAKER) (test 6 % mvbl=123) EOSINOPHILS RELATIVE PERCENT (BEAKER) (test 1 % cbdu=663) BASOPHILS RELATIVE PERCENT (BEAKER) (test 0 % cgyj=244) NEUTROPHILS ABSOLUTE COUNT (BEAKER) (test 8.21 K/ L 1.56-6.13 dwrw=723) LYMPHOCYTES ABSOLUTE COUNT (BEAKER) (test 2.31 K/ L 1.18-3.74 jppe=914) MONOCYTES ABSOLUTE COUNT (BEAKER) (test 0.65 K/ L 0.24-0.36 hbwe=027) EOSINOPHILS ABSOLUTE COUNT (BEAKER) (test 0.11 K/ L 0.04-0.36 sspv=325) BASOPHILS ABSOLUTE COUNT (BEAKER) (test 0.05 K/ L 0.01-0.08 jzfg=801) IMMATURE GRANULOCYTES-RELATIVE PERCENT (BEAKER) 0 % 0-1 (test kcpr=8449) BASIC METABOLIC [id number] 05:51:00 Test Item Value Reference Range Comments SODIUM (BEAKER) (test 138 meq/L 136-145 zumo=559) POTASSIUM (BEAKER) (test 3.8 meq/L 3.5-5.1 xxpa=390) CHLORIDE (BEAKER) (test 105 meq/L 98-107 qnkn=174) CO2 (BEAKER) (test 26 meq/L 22-29 habw=373) BLOOD UREA NITROGEN 13 mg/dL 7-21 (BEAKER) (test rwjo=524) CREATININE (BEAKER) (test 1.66 mg/dL 0.57-1.25 mbns=609) GLUCOSE RANDOM (BEAKER) 167 mg/dL 70-105 (test zpau=810) CALCIUM (BEAKER) (test 8.9 mg/dL 8.4-10.2 jkjb=540) EGFR (BEAKER) (test 34 mL/min/1.73 sq m ESTIMATED GFR IS NOT ovcn=4742) ACCURATE CREATININE CLEARANCE IN PREDICTING GLOMERULAR FILTRATION RATE. ESTIMATED GFR IS NOT APPLICABLE FOR DIALYSIS PATIENTS. POCT-GLUCOSE [id number] 21:41:00 Test Item Value Reference Range Comments POC-GLUCOSE METER (BEAKER) 287 mg/dL 70-110 TESTED AT [facility] [address] (test rohz=3248) [facility] [address] BASIC METABOLIC [id number] 12:35:00 Test Item Value Reference Range Comments SODIUM (BEAKER) (test 134 meq/L 136-145 mowo=589) POTASSIUM (BEAKER) (test 4.6 meq/L 3.5-5.1 gkcn=289) CHLORIDE (BEAKER) (test 105 meq/L 98-107 ctzw=543) CO2 (BEAKER) (test 23 meq/L 22-29 kuxa=520) BLOOD UREA NITROGEN 14 mg/dL 7-21 (BEAKER) (test uash=821) CREATININE (BEAKER) 1.59 mg/dL 0.57-1.25 (test vbfc=419) GLUCOSE RANDOM (BEAKER) 266 mg/dL 70-105 (test srpg=207) CALCIUM (BEAKER) (test 8.2 mg/dL 8.4-10.2 ubpz=038) EGFR (BEAKER) (test 36 mL/min/1.73 sq m INSUFFICIENT CLINICAL DATA cphz=7641) TO CALCULATE ESTIMATED GFR.This is an appended report. These results have been appended to a previously final verified report. CBC W/PLT COUNT & AUTO [id number] 04:54:00 Test Item Value Reference Range Comments WHITE BLOOD CELL COUNT (BEAKER) (test qiow=324) 10.6 K/ L 3.5-10.5 RED BLOOD CELL COUNT (BEAKER) (test nwmc=191) 3.55 M/ L 3.93-5.22 HEMOGLOBIN (BEAKER) (test vojp=678) 10.8 GM/DL 11.2-15.7 HEMATOCRIT (BEAKER) (test ckqd=422) 32.6 % 34.1-44.9 MEAN CORPUSCULAR VOLUME (BEAKER) (test wmfh=564) 91.8 fL 79.4-94.8 MEAN CORPUSCULAR HEMOGLOBIN (BEAKER) (test 30.4 pg 25.6-32.2 zqcn=914) MEAN CORPUSCULAR HEMOGLOBIN CONC (BEAKER) (test 33.1 GM/DL 32.2-35.5 akah=036) RED CELL DISTRIBUTION WIDTH (BEAKER) (test 12.3 % 11.7-14.4 pysc=038) PLATELET COUNT (BEAKER) (test pcqo=251) 311 K/CU MM 150-450 MEAN PLATELET VOLUME (BEAKER) (test sypg=268) 10.2 fL 9.4-12.3 NUCLEATED RED BLOOD CELLS (BEAKER) (test 0 /100 WBC 0-0 tjsa=095) NEUTROPHILS RELATIVE PERCENT (BEAKER) (test 71 % kcur=981) LYMPHOCYTES RELATIVE PERCENT (BEAKER) (test 20 % thkj=909) MONOCYTES RELATIVE PERCENT (BEAKER) (test 6 % hchw=821) EOSINOPHILS RELATIVE PERCENT (BEAKER) (test 3 % uuat=641) BASOPHILS RELATIVE PERCENT (BEAKER) (test 1 % ggxm=670) NEUTROPHILS ABSOLUTE COUNT (BEAKER) (test 7.51 K/ L 1.56-6.13 qzfs=482) LYMPHOCYTES ABSOLUTE COUNT (BEAKER) (test 2.11 K/ L 1.18-3.74 hicx=221) MONOCYTES ABSOLUTE COUNT (BEAKER) (test 0.60 K/ L 0.24-0.36 ahxi=265) EOSINOPHILS ABSOLUTE COUNT (BEAKER) (test 0.27 K/ L 0.04-0.36 jecm=919) BASOPHILS ABSOLUTE COUNT (BEAKER) (test 0.07 K/ L 0.01-0.08 kefh=091) IMMATURE GRANULOCYTES-RELATIVE PERCENT (BEAKER) 1 % 0-1 (test rsut=0191) [id number] 20:17:00 Test Item Value Reference Range Comments RPR SCREEN (BEAKER) (test ucsm=048) Nonreactive Nonreactive POCT-GLUCOSE [id number] 18:09:00 Test Item Value Reference Range Comments POC-GLUCOSE METER (BEAKER) 215 mg/dL 70-110 TESTED AT [facility] [address] (test gktv=9501) [place] [address] CBC W/PLT COUNT & AUTO [id number] 11:54:00 Test Item Value Reference Range Comments WHITE BLOOD CELL COUNT (BEAKER) (test ugii=682) 9.3 K/ L 3.5-10.5 RED BLOOD CELL COUNT (BEAKER) (test vjdn=976) 3.45 M/ L 3.93-5.22 HEMOGLOBIN (BEAKER) (test bnxi=249) 10.7 GM/DL 11.2-15.7 HEMATOCRIT (BEAKER) (test cqtq=507) 32.0 % 34.1-44.9 MEAN CORPUSCULAR VOLUME (BEAKER) (test nbde=997) 92.8 fL 79.4-94.8 MEAN CORPUSCULAR HEMOGLOBIN (BEAKER) (test 31.0 pg 25.6-32.2 matv=595) MEAN CORPUSCULAR HEMOGLOBIN CONC (BEAKER) (test 33.4 GM/DL 32.2-35.5 xfxb=618) RED CELL DISTRIBUTION WIDTH (BEAKER) (test 12.7 % 11.7-14.4 ttwx=171) PLATELET COUNT (BEAKER) (test auip=086) 302 K/CU MM 150-450 MEAN PLATELET VOLUME (BEAKER) (test pulc=097) 10.0 fL 9.4-12.3 NUCLEATED RED BLOOD CELLS (BEAKER) (test 0 /100 WBC 0-0 pvpz=920) NEUTROPHILS RELATIVE PERCENT (BEAKER) (test 60 % kxgd=773) LYMPHOCYTES RELATIVE PERCENT (BEAKER) (test 29 % aqgp=050) MONOCYTES RELATIVE PERCENT (BEAKER) (test 8 % tkko=390) EOSINOPHILS RELATIVE PERCENT (BEAKER) (test 3 % efon=993) BASOPHILS RELATIVE PERCENT (BEAKER) (test 1 % lmkn=804) NEUTROPHILS ABSOLUTE COUNT (BEAKER) (test 5.55 K/ L 1.56-6.13 hpde=070) LYMPHOCYTES ABSOLUTE COUNT (BEAKER) (test 2.65 K/ L 1.18-3.74 dxpa=016) MONOCYTES ABSOLUTE COUNT (BEAKER) (test 0.70 K/ L 0.24-0.36 mktm=211) EOSINOPHILS ABSOLUTE COUNT (BEAKER) (test 0.31 K/ L 0.04-0.36 uesf=824) BASOPHILS ABSOLUTE COUNT (BEAKER) (test 0.05 K/ L 0.01-0.08 fmmx=423) IMMATURE GRANULOCYTES-RELATIVE PERCENT (BEAKER) 0 % 0-1 (test anzc=9047) (MANUAL DIFFERENTIAL)2017-03-15 11:54:00 Test Item Value Reference Range Comments TOTAL COUNTED (BEAKER) (test mhag=8946) WBC MORPHOLOGY (BEAKER) (test qouu=841) Normal PLT MORPHOLOGY (BEAKER) (test ykar=069) Normal RBC MORPHOLOGY (BEAKER) (test mrcg=273) Normal SEDIMENTATION [id number] 10:27:00 Test Item Value Reference Range Comments SEDIMENTATION RATE, ERYTHROCYTE (BEAKER) (test 79 mm/HR 0-20 zgoc=762) HEMOGLOBIN [id number] 09:33:00 Test Item Value Reference Range Comments HEMOGLOBIN A1C (BEAKER) (test adhu=520) 9.8 % 4.3-6.1 VITAMIN [id number] 09:14:00 Test Item Value Reference Range Comments VITAMIN B12 (BEAKER) (test rszw=120) 1790 pg/mL 213-816 TSH/FREE T4 IF [id number] 09:14:00 Test Item Value Reference Range Comments THYROID STIMULATING HORMONE (BEAKER) (test 1.08 uIU/mL 0.35-4.94 dpvn=161) BASIC METABOLIC [id number] 08:52:00 Test Item Value Reference Range Comments SODIUM (BEAKER) (test 137 meq/L 136-145 vxzr=604) POTASSIUM (BEAKER) (test 4.7 meq/L 3.5-5.1 nomt=470) CHLORIDE (BEAKER) (test 107 meq/L 98-107 cmzo=157) CO2 (BEAKER) (test 25 meq/L 22-29 ynlz=380) BLOOD UREA NITROGEN 18 mg/dL 7-21 (BEAKER) (test xdgc=262) CREATININE (BEAKER) (test 1.77 mg/dL 0.57-1.25 ngxt=498) GLUCOSE RANDOM (BEAKER) 290 mg/dL 70-105 (test tseq=776) CALCIUM (BEAKER) (test 8.0 mg/dL 8.4-10.2 zfjg=912) EGFR (BEAKER) (test mL/min/1.73 sq m INSUFFICIENT CLINICAL DATA bbcl=6111) TO CALCULATE ESTIMATED GFR. FastingLIPID [id number] 08:51:00 Test Item Value Reference Range Comments TRIGLYCERIDES (BEAKER) (test wqur=990) 90 mg/dL CHOLESTEROL (BEAKER) (test hhki=375) 143 mg/dL HDL CHOLESTEROL (BEAKER) (test lxur=922) 44 mg/dL LDL CHOLESTEROL CALCULATED (BEAKER) (test 81 mg/dL vowi=152) Triglyceride Reference Range: Low Risk <150 Borderline 150- 199 High Risk 200-499 Very High Risk >=500Cholesterol Reference Range: Low Risk <200 Borderline 200-239 High Risk > 240HDL Cholesterol Reference Range: Low Risk >=60 High Risk <40LDL Cholesterol Reference Range: Optimal <100 Near Optimal 100-129 Borderline 130-159 High 160-189 Very High >=190 FastingHCG, QUANTITATIVE, [id number] 01:43:00 Test Item Value Reference Range Comments GONADOTROPIN, CHORIONIC (HCG) QUANT (BEAKER) (test < mIU/mL 0-10 lcyx=587) Non- Females: <10 mIU/mL Females: Gestation Age Reference Range(mIU/mL) 0.2-1 Week 5-50 1-2 Weeks 50-500 2-3 Weeks 100-5,000 3-4Weeks 500-10,000 4 -5 Weeks 1,000-50,000 5-6 Weeks 10,000-100,000 6-8 Weeks 15,000-200,000 2-3 Months 10,000-100,000COMPREHENSIVE METABOLIC [id number] 21:57:00 Test Item Value Reference Range Comments TOTAL PROTEIN (BEAKER) 5.0 gm/dL 6.0-8.3 (test zppm=526) ALBUMIN (BEAKER) (test 2.1 g/dL 3.5-5.0 xpep=2909) ALKALINE PHOSPHATASE 106 U/L 40-150 (BEAKER) (test vmhn=072) BILIRUBIN TOTAL (BEAKER) 0.2 mg/dL 0.2-1.2 (test noky=689) SODIUM (BEAKER) (test 137 meq/L 136-145 wlor=825) POTASSIUM (BEAKER) (test 4.7 meq/L 3.5-5.1 bdyq=521) CHLORIDE (BEAKER) (test 106 meq/L 98-107 alrc=355) CO2 (BEAKER) (test 25 meq/L 22-29 cilj=528) BLOOD UREA NITROGEN 21 mg/dL 7-21 (BEAKER) (test avop=102) CREATININE (BEAKER) (test 2.00 mg/dL 0.57-1.25 tlom=303) GLUCOSE RANDOM (BEAKER) 285 mg/dL 70-105 (test bhif=538) CALCIUM (BEAKER) (test 7.9 mg/dL 8.4-10.2 dprf=580) AST (SGOT) ([employer]AKER) (test 16 U/L 5-34 zblz=175) ALT (SGPT) ([employer]AKER) (test 14 U/L 6-55 oifv=579) EGFR ([employer]) (test mL/min/1.73 sq m INSUFFICIENT CLINICAL DATA zstx=2591) TO CALCULATE ESTIMATED GFR. Unit CollectPOCT-GLUCOSE [id number] 21:50:00 Test Item Value Reference Range Comments POC-GLUCOSE METER ([employer]) 278 mg/dL 70-110 [facility]ED [facility] [address] (test cluk=6846) [facility] [id number]
[2018-07-03] MEDS ORDERED: NA CHLORIDE 0.9% 1,000 ML ONE (19:32)
[2018-07-03 19:41] LABS: Absolute Lymphocytes (CBC) 2.8 K/uL (0.7-4.9); Absolute Monocytes 0.6 K/uL (0.1-1.3); Basophils % 0.9 % (0-1.3); Eosinophils % 1.3 % (0-4.4); Hematocrit 38.9 % (36.0-45.0); Lymphocytes % 25.9 % (15.3-44.8); MCH 30.9 pg (27.0-35.0); MPV 8.6 fL (7.6-11.3); Monocytes % 5.9 % (3.3-12.3); RBC Red Blood Cell Count 4.22 M/uL (3.86-4.86)
[2018-07-03 19:45] LABS: Protime INR 0.82
--- NOTE | 2018-07-03 19:54 | RAD REPORT ---
EXAM DESCRIPTION: RAD - Chest Single View - 07/03/2018 7:45 pm CLINICAL HISTORY: CHEST PAIN Chest pain. COMPARISON: Chest Single View dated 06/27/2018; Chest Single View dated 02/01/2018; Chest Single View dated 12/21/2017; Chest Single View dated 09/01/2017 FINDINGS: Portable technique limits examination quality. The lungs are grossly clear. The heart is normal in size. No displaced fractures. IMPRESSION: No acute intrathoracic process suspected.
[2018-07-03 20:05] LABS: ALT/SGPT 26 U/L (12-78); AST/SGOT 14 U/L (15-37); Albumin 1.8 g/dL (3.4-5.0); Alkaline Phosphatase 131 U/L (45-117); BUN Blood Urea Nitrogen 22 mg/dL (7-18); Bicarbonate 26 mmol/L (21-32); Bilirubin Direct < 0.1 mg/dL (0-0.2); Bilirubin Total 0.2 mg/dL (0.2-1.0); Glucose Level 262 mg/dL (74-106); Lipase 191 U/L (73-393); Magnesium 2.1 mg/dL (1.8-2.4); NT PRO-BNP 610 pg/mL (<125); Potassium 3.9 mmol/L (3.5-5.1); Protein, Total 5.3 g/dL (6.4-8.2); Sodium Level 141 mmol/L (136-145); Troponin (Emerg Dept Use Only) < 0.02 ng/mL (0.0-0.045)
--- NOTE | 2018-07-03 20:42 | RAD REPORT ---
EXAM DESCRIPTION: CT - Head Brain Wo Cont - 07/03/2018 8:27 pm CLINICAL HISTORY: generalized weakness Drowsiness COMPARISON: Ct Stroke Brain Wo Cont dated 03/14/2017; Head Brain Wo Cont dated 03/02/2017; Head Brain Wo Cont dated 02/11/2017 TECHNIQUE: All CT scans are performed using dose optimization technique as appropriate and may inclu de automated exposure control or mA/KV adjustment according to patient size. FINDINGS: No intracranial hemorrhage, hydrocephalus or extra-axial fluid collection.Mild periventric ular chronic microvascular ischemic changes.No areas of brain edema or evidence of midline shift. The paranasal sinuses and mastoids are clear. The calvarium is intact. Bilateral phthisis bulbi IMPRESSION: No acute intracranial abnormality.
[2018-07-03 20:58] LABS: Urine Appearance CLEAR; Urine Bilirubin NEGATIVE (NEG); Urine Blood 1+ (NEG); Urine Color YELLOW; Urine Glucose 3+ (NEG); Urine Protein 3+ (NEG); Urine Urobilinogen 0.2 mg/dL (0.2-1.0)
[2018-07-03 20:59] LABS: Urine Microscopic Reflex ORDER UMIC
[2018-07-03 21:11] LABS: Urine Blood 2+ (NEG); Urine Glucose 2+ (NEG); Urine Protein 3+ (NEG)
[2018-07-03 21:17] LABS: Urine Bacteria <20 /HPF (<20)
[2018-07-03 21:18] LABS: Urine Culture Reflex Order NOT NEEDED
--- NOTE | 2018-07-03 21:40 | ER ---
Nurse's Notes [facility] Name: Archana Woo Age: 42 yrs Sex: Female : 1975 Arrival Date: 07/03/2018 Time: 18:56 Bed 15 Private MD: Diagnosis: Chest pain. Generalized weakness Presentation: 07/03 18:56 Presenting complaint: EMS states: from home, complaining of chest pain and sudden onset hj and generalized weakness that started today; complaints of body aches, BP- 158/104; HR- 80; 99% RA; BGL- 218; pt is blind;. Transition of care: patient was not received from another setting of care. Onset of symptoms was July 03, 2018. Risk Assessment: Do you want to hurt yourself or someone else? Patient reports no desire to harm self or others. Initial Sepsis Screen: Does the patient meet any 2 criteria? Yes No. Patient's initial sepsis screen is negative. Does the patient have a suspected source of infection? No. Patient's initial sepsis screen is negative. Care prior to arrival: None. 18:56 Method Of Arrival: EMS: [facility] 18:56 Acuity: TARUN 3 hj Triage Assessment: 19:00 General: Appears in no apparent distress. uncomfortable, Behavior is calm, cooperative, hj appropriate for age. Pain: Complains of pain in chest, body. EENT: No signs and/or symptoms were reported regarding the EENT system. Neuro: Level of Consciousness is awake, alert, obeys commands, Oriented to person, place, time, situation, Appropriate for age. Cardiovascular: Capillary refill < 3 seconds Patient's skin is warm and dry. Cardiovascular: Reports chest pain. Respiratory: Airway is patent Respiratory effort is even, unlabored, Respiratory pattern is regular, symmetrical. GI: No signs and/or symptoms were reported involving the gastrointestinal system. : No signs and/or symptoms were reported regarding the genitourinary system. Derm: No signs and/or symptoms reported regarding the dermatologic system. Musculoskeletal: No signs and/or symptoms reported regarding the musculoskeletal system. Historical: - Allergies: 18:59 No Known Drug Allergies; hj - PMHx: 18:59 BLIND; CVA; Depression; Diabetes - NIDDM; GERD; Hyperlipidemia; Hypertension; hj neuropathy; THYROID CANCER; TIA; - PSHx: 18:59 Cholecystectomy; Tonsillectomy; ; tumor removed on thyroid; hj - Immunization history:: Adult Immunizations up to date. - Social history:: Smoking status: Patient/guardian denies using tobacco, Patient/guardian denies using alcohol. - Ebola Screening: : Patient negative for fever greater than or equal to 101.5 degrees Fahrenheit, and additional compatible Ebola Virus Disease symptoms Patient denies exposure to infectious person Patient denies travel to an Ebola-affected area in the 21 days before illness onset. Screenin:59 Abuse screen: Denies threats or abuse. Denies injuries from another. Nutritional hj screening: No deficits noted. Tuberculosis screening: No symptoms or risk factors identified. Fall Risk No secondary diagnosis (0 pts). Assessment: 19:01 Pain: Pain does not radiate. Pain began suddenly. hj 19:05 General: Appears in no apparent distress. uncomfortable, Behavior is calm, cooperative. jb4 Pain: Complains of pain in chest, Generalized pain Pain does not radiate. Quality of pain is described as pressure, Pain began suddenly, Is continuous. Neuro: Level of Consciousness is awake, alert, obeys commands, Oriented to person, place, time, situation, Tube Wrapper are equal bilaterally Moves all extremities. Speech is normal, Facial symmetry appears normal. Cardiovascular: Heart tones S1 S2 present Patient's skin is warm and dry. Rhythm is sinus rhythm. Respiratory: Airway is patent Respiratory effort is even, unlabored, Respiratory pattern is regular, symmetrical, Breath sounds are clear bilaterally. GI: No signs and/or symptoms were reported involving the gastrointestinal system. : No signs and/or symptoms were reported regarding the genitourinary system. EENT: No signs and/or symptoms were reported regarding the EENT system. Derm: Skin is intact, Skin is pink, warm \T\ dry. 19:05 Musculoskeletal: Circulation, motion, and sensation intact. Reports weakness in right jb4 leg and left leg pain in generalized. 20:00 Reassessment: Patient appears in no apparent distress at this time. Patient and/or jb4 family updated on plan of care and expected duration. Pain level reassessed. Patient is alert, oriented x 3, equal unlabored respirations, skin warm/dry/pink. 20:51 Reassessment: Patient appears in no apparent distress at this time. Patient and/or jb4 family updated on plan of care and expected duration. Pain level reassessed. Patient is alert, oriented x 3, equal unlabored respirations, skin warm/dry/pink. Neuro: Level of Consciousness is awake, alert, obeys commands, Oriented to person, place, time, situation, Tube Wrapper are equal bilaterally Moves all extremities. Full function Speech is normal, Facial symmetry appears normal, Intact. 22:00 Reassessment: Patient appears in no apparent distress at this time. Patient and/or jb4 family updated on plan of care and expected duration. Pain level reassessed. Patient is alert, oriented x 3, equal unlabored respirations, skin warm/dry/pink. 23:00 Reassessment: Patient appears in no apparent distress at this time. Patient and/or jb4 family updated on plan of care and expected duration. Pain level reassessed. Patient is alert, oriented x 3, equal unlabored respirations, skin warm/dry/pink. 07/04 00:30 Reassessment: Patient appears in no apparent distress at this time. Patient and/or jb4 family updated on plan of care and expected duration. Pain level reassessed. Patient is alert, oriented x 3, equal unlabored respirations, skin warm/dry/pink. Vital Signs: 07/03 19:01 BP 181 / 91; Pulse 84; Resp 18; Temp 97.8(TE); Pulse Ox 100% on R/A; Weight 73.48 kg; hj Height 5 ft. 4 in. (162.56 cm); Pain 8/10; 20:00 BP 132 / 73; Pulse 116; Resp 16; Pulse Ox 93% on R/A; jb4 20:51 BP 163 / 73; Pulse 78; Resp 13; Pulse Ox 100% on R/A; jb4 22:00 BP 167 / 75; Pulse 82; Resp 16; Pulse Ox 100% on R/A; jb4 23:15 BP 137 / 69; Pulse 77; Resp 16; Pulse Ox 100% on R/A; jb4 07/04 00:30 BP 131 / 66; Pulse 73; Resp 16; Pulse Ox 100% on R/A; jb4 07/03 19:01 Body Mass Index 27.81 (73.48 kg, 162.56 cm) ED Course: 07/03 18:56 Patient arrived in ED. 18:58 Triage completed. hj 19:01 Arm band placed on right wrist. hj 19:01 Patient has correct armband on for positive identification. Bed in low position. Call hj light in reach. Side rails up X2. Adult w/ patient. quality assurance monitor body on. Pulse ox on. NIBP on. 19:01 Patient maintains SpO2 saturation greater than 95% on room air. hj 19:06 Jose G Resendiz RN is Primary Nurse. jb4 19:10 Missed attempt(s): 22 gauge in right wrist. jb4 19:10 Missed attempt(s): 22 gauge in left forearm. jb4 19:12 Gael Quiñonez MD is Attending Physician. pkl 19:31 EKG done, by ED staff, reviewed by Gael Quiñonez MD Flu and/or RSV swab sent to lab. Inserted ak1 saline lock: 22 gauge in right antecubital area, using aseptic technique. 19:45 XRAY Chest (1 view) In Process Unspecified. EDMS 19:59 Notified ED physician of a critical lab result(s). DDimer [id number]. jb4 20:26 CT Head Brain wo Cont In Process Unspecified. EDMS 21:38 Aura Guzman MD is Hospitalizing Provider. pkl 07/04 00:30 No provider procedures requiring assistance completed. Patient admitted, IV remains in jb4 place. Administered Medications: 07/03 19:55 Drug: NS 0.9% 1000 ml Route: IV; Rate: 100 ml/hr; Site: right antecubital; jb4 07/04 01:15 Follow up: Response: No adverse reaction; IV Status: Infusion continued upon admission jb4 07/03 21:45 Drug: Zofran 4 mg Route: IVP; Site: right antecubital; jb4 07/04 00:45 Follow up: Response: No adverse reaction jb4 07/03 21:47 Drug: morphine 2 mg Route: IVP; Site: right antecubital; jb4 07/04 00:45 Follow up: Response: No adverse reaction; Pain is decreased jb Outcome: 07/03 21:40 Decision to Hospitalize by Provider. pkl 07/04 00:30 Admitted to Med/surg accompanied by nurse, via stretcher, room 212, with chart, Report jb4 called to ARMOND cadrenas Condition: stable Discharge instructions given to patient, family, Instructed on the need for admit, Demonstrated understanding of instructions. 01:16 Patient left the ED. jb4 Signatures: Dispatcher [employer] EDMS Gael Quiñonez MD MD pkl Krenek, Amber, RN RN ak1 Kurtis Jean Baptiste RN RN Jose G Madsen RN RN jb4
--- NOTE | 2018-07-03 21:41 | EDPHYS ---
Physician Documentation [facility] Name: Archana Woo Age: 42 yrs Sex: Female : 1975 Arrival Date: 07/03/2018 Time: 18:56 Bed 15 Private MD: ED Physician Gael Quiñonez HPI: 07/03 19:23 This 42 yrs old Female presents to ER via EMS with complaints of General pkl Weakness, Chest Pain. 19:23 The patient or guardian reports chest pain that is located primarily in the substernal pkl area. Onset: today. The pain does not radiate. Associated signs and symptoms: Pertinent positives: generalized weakness. The chest pain is described as dull. The patient has experienced similar episodes in the past, a few times. Historical: - Allergies: 18:59 No Known Drug Allergies; hj - PMHx: 18:59 BLIND; CVA; Depression; Diabetes - NIDDM; GERD; Hyperlipidemia; Hypertension; hj neuropathy; THYROID CANCER; TIA; - PSHx: 18:59 Cholecystectomy; Tonsillectomy; ; tumor removed on thyroid; hj - Immunization history:: Adult Immunizations up to date. - Social history:: Smoking status: Patient/guardian denies using tobacco, Patient/guardian denies using alcohol. - Ebola Screening: : Patient negative for fever greater than or equal to 101.5 degrees Fahrenheit, and additional compatible Ebola Virus Disease symptoms Patient denies exposure to infectious person Patient denies travel to an Ebola-affected area in the 21 days before illness onset. ROS: 19:23 ENT: Negative for injury, pain, and discharge, Neck: Negative for injury, pain, and pkl swelling. 19:23 Cardiovascular: Positive for chest pain. 19:23 Respiratory: Negative for cough, shortness of breath. 19:23 Abdomen/GI: Negative for abdominal pain, nausea, vomiting, and diarrhea. 19:23 Back: Negative for acute changes. 19:23 : Negative for urinary symptoms. 19:23 MS/extremity: Positive for weakness in both legs. 19:23 Skin: Negative for rash. 19:23 Neuro: Negative for altered mental status. Exam: 19:23 Head/Face: Normocephalic, atraumatic. pkl 19:23 Eyes: patient is blind. 19:23 ENT: Exam is negative for acute changes. 19:23 Neck: Exam negative for nuchal rigidity. 19:23 Chest/axilla: Exam negative for acute changes. 19:23 Cardiovascular: Rate: normal, Rhythm: regular. 19:23 ECG was reviewed by the Attending Physician. 19:23 Respiratory: Respirations: normal, Breath sounds: are clear throughout. 19:23 Abdomen/GI: Bowel sounds: normal, Palpation: abdomen is soft and non-tender, in all quadrants. 19:23 Back: Exam negative for acute changes. 19:23 : Exam negative for acute changes. 19:23 Musculoskeletal/extremity: Exam is negative for acute changes. 19:23 Skin: Exam negative for rash. 19:23 Neuro: Orientation: appropriate for stated age, Mentation: slow to respond, Cranial nerves: grossly normal, Motor: moves all fours. Vital Signs: 19:01 BP 181 / 91; Pulse 84; Resp 18; Temp 97.8(TE); Pulse Ox 100% on R/A; Weight 73.48 kg; Height 5 ft. 4 in. (162.56 cm); Pain 8/10; 20:00 BP 132 / 73; Pulse 116; Resp 16; Pulse Ox 93% on R/A; jb4 20:51 BP 163 / 73; Pulse 78; Resp 13; Pulse Ox 100% on R/A; jb4 22:00 BP 167 / 75; Pulse 82; Resp 16; Pulse Ox 100% on R/A; jb4 23:15 BP 137 / 69; Pulse 77; Resp 16; Pulse Ox 100% on R/A; jb4 07/04 00:30 BP 131 / 66; Pulse 73; Resp 16; Pulse Ox 100% on R/A; jb4 07/03 19:01 Body Mass Index 27.81 (73.48 kg, 162.56 cm) MDM: 07/03 19:12 Patient medically screened. pkl 21:38 Data reviewed: vital signs, nurses notes. pkl 07/03 19:20 Order name: Basic Metabolic Panel pkl 07/03 19:20 Order name: CBC with Diff pkl 07/03 19:20 Order name: LFT's pkl 07/03 19:20 Order name: Magnesium; Complete Time: 20:23 pkl 07/03 19:20 Order name: NT PRO-BNP; Complete Time: 20:23 pkl 07/03 19:20 Order name: PT-INR; Complete Time: 20:23 pkl 07/03 19:20 Order name: Troponin (emerg Dept Use Only); Complete Time: 20:23 pkl 07/03 19:20 Order name: D-Dimer; Complete Time: 20:23 pkl 07/03 19:20 Order name: Lipase; Complete Time: 20:23 pkl 07/03 19:20 Order name: UA; Complete Time: 21:44 pkl 07/03 19:21 Order name: Basic Metabolic Panel; Complete Time: 20:23 EDMS 07/03 19:21 Order name: CBC with Automated Diff; Complete Time: 20:23 EDMS 07/03 19:21 Order name: Liver (Hepatic) Function; Complete Time: 20:23 EDMS 07/03 19:21 Order name: Flu; Complete Time: 20:23 pkl 07/03 19:20 Order name: XRAY Chest (1 view); Complete Time: 20:23 pkl 07/03 19:20 Order name: EKG; Complete Time: 19:21 pkl 07/03 19:20 Order name: Cardiac monitoring; Complete Time: 19:31 pkl 07/03 19:20 Order name: EKG - Nurse/Tech; Complete Time: 19:25 pkl 07/03 19:20 Order name: IV Saline Lock; Complete Time: 19:31 pkl 07/03 19:20 Order name: Labs collected and sent; Complete Time: 19:31 pkl 07/03 19:20 Order name: O2 Per Protocol; Complete Time: 19:22 pkl 07/03 19:20 Order name: O2 Sat Monitoring; Complete Time: 19:22 pkl 07/03 19:29 Order name: CT Head Brain wo Cont; Complete Time: 21:44 pkl 07/03 20:52 Order name: Urine Dipstick--Ancillary (enter results); Complete Time: 21:44 [facility] 07/03 21:00 Order name: Urine Microscopic Only; Complete Time: 21:44 EDMS Administered Medications: 19:55 Drug: NS 0.9% 1000 ml Route: IV; Rate: 100 ml/hr; Site: right antecubital; 07/04 01:15 Follow up: Response: No adverse reaction; IV Status: Infusion continued upon admission 07/03 21:45 Drug: Zofran 4 mg Route: IVP; Site: right antecubital; jb4 07/04 00:45 Follow up: Response: No adverse reaction jb4 07/03 21:47 Drug: morphine 2 mg Route: IVP; Site: right antecubital; jb4 07/04 00:45 Follow up: Response: No adverse reaction; Pain is decreased jb4 Disposition: 07/03/18 21:40 Hospitalization ordered by Aura Guzman for Observation. Preliminary diagnosis is Chest pain. Generalized weakness. - Bed requested for Telemetry/MedSurg (observation). - Status is Observation. jb4 - Condition is Stable. - Problem is new. - Symptoms are unchanged. UTI on Admission? No Signatures: Dispatcher [employer] EDMS Reina Feldman RN RN kl Lam, Pin, MD MD pkl Elisabeth Mendoza RN RN bb Joaquin, Henry, RN RN hj Bryson, James RN RN jb4 Corrections: (The following items were deleted from the chart) 00:13 07/03 21:40 Hospitalization Ordered by Aura Guzman MD for Observation. Preliminary diagnosis is Chest pain. Generalized weakness. Bed requested for Telemetry/MedSurg (observation). Status is Observation. Condition is Stable. Problem is new. Symptoms are unchanged. UTI on Admission? No. pkl 07/04 01:16 00:13 07/03/2018 21:40 Hospitalization Ordered by Aura Guzman MD for Observation. jb4 Preliminary diagnosis is Chest pain. Generalized weakness. Bed requested for Telemetry/MedSurg (observation). Status is Observation. Condition is Stable. Problem is new. Symptoms are unchanged. UTI on Admission? No. kl
[2018-07-03] MEDS ORDERED: MORPHINE 4 MG/ML SYR ONE (21:50)
[2018-07-03] MEDS ORDERED: ONDANSETRON 4 MG/2 ML VIAL ONE (21:50)
[2018-07-04 00:59] VITALS: BMI 22.8
[2018-07-04] MEDS: NA CHLORIDE 0.9% 1,000 ML IV SCH ×2 (01:18→09:49)
[2018-07-04] MEDS: ENOXAPARIN 60 MG/0.6 ML SQ SCH (05:16)
--- NOTE | 2018-07-04 05:50 | EKG ---
Test Date: 2018-07-03 Test Time: 19:00:02 Rn Neurosurgical: GEORGIE MEASUREMENT RESULTS: Intervals: Rate: 82 WA: 136 QRSD: 80 QT: 380 QTc: 443 [place]: P: 70 WA: 136 QRS: 31 T: 84 INTERPRETIVE STATEMENTS: Normal sinus rhythm Normal ECG Compared to ECG 02/01/2018 08:12:22 No significant changes Electronically Signed On 07-04-18 05:50:18 FIRE PILOT by Souleymane Julio
[2018-07-04 06:21] LABS: Absolute Lymphocytes (CBC) 3.4 K/uL (0.7-4.9); Absolute Monocytes 0.8 K/uL (0.1-1.3); Absolute Neutrophil 5.4 K/uL (1.8-8.0); Basophils % 0.5 % (0-1.3); Eosinophils % 2.2 % (0-4.4); Hematocrit 30.6 % (36.0-45.0); Lymphocytes % 34.5 % (15.3-44.8); MCH 31.6 pg (27.0-35.0); MCV 92.5 fL (80-100); MPV 8.4 fL (7.6-11.3); Monocytes % 7.9 % (3.3-12.3); RBC Red Blood Cell Count 3.31 M/uL (3.86-4.86)
--- NOTE | 2018-07-04 06:26 | P.HP ---
Certification for Inpatient Patient admitted to: Observation With expected LOS: <2 Midnights Practitioner: I am a practitioner with admitting privileges, knowledge of patient current condition, hospital course, and medical plan of care. Services: Services provided to patient in accordance with Admission requirements found in Title 42 Section 412.3 of the Code of Federal Regulations Patient History Date of Service: 07/04/18 Reason for admission: Chest pain History of Present Illness: Ms Woo a 42-year-old woman with history of diabetes mellitus, CVA, hypertension, who was having dinner with her family and suddenly she start feeling weak, complaining of chest pain. She also stated that her legs were heavy and difficult to move them. No history of shortness of breath, fever or chills. The history was provided by her sister since the patient was sedated but pain medication at the time of my encounter. Laboratory work remarkable for normal troponin I, normal WBC count, elevated creatinine consistent with her history of CKD, EKG shows not acute ST-T abnormalities. O2 sat 100% on room air, BP was somewhat elevated 167/73, HR 88, afebrile. Allergies No Known Allergies Allergy (Verified 07/04/18 00:42) Home medications list reviewed: Yes Home Medications: Insulin Glargine,Hum.rec.anlog [Toujeo Solostar] 300 sqbot SQ DAILY 12/22/17 Lisinopril/Hydrochlorothiazide [Lisinopril-Hctz 20-12.5 mg Tab] 1 tab PO DAILY 07/04/18 Sucralfate [Carafate -Tab] 1 gm PO TID 07/04/18 - Past Medical/Surgical History Has patient received pneumonia vaccine in the past: No Diabetic: Yes -: Legally blind, diabetic retinopathy -: Hypertension -: Depression with anxiety -: History of thyroid cancer -: Hyperlipidemia -: Tobacco abuse -: GERD -: COPD -: Chronic renal disease -: Diabetic retinopathy and nephropathy -: Cholecystectomy -: Thyroidectomy -: Multiple eye surgeries -: Psychosocial/ Personal History: The patient is . She has 1 child. She is disabled. - Family History Father -: Heart disease, Hypertension, Other (see notes) Notes: thyroid problems Mother -: Diabetes, Kidney disease - Social History Smoking Status: Current some day smoker Alcohol use: Yes CD- Drugs: No Caffeine use: Yes Place of Residence: Home Review of Systems is unable to be obtained (Patient sedated with pain medication) Physical Examination - Vital Signs Temperature: 98 F Blood Pressure: 163/70 Pulse: 77 Respirations: 20 Pulse Ox (%): 99 - Physical Exam General: Alert, In no apparent distress HEENT: Atraumatic, PERRLA, Mucous membr. moist/pink, EOMI, Sclerae nonicteric Neck: Supple, 2+ carotid pulse no bruit, No LAD, Without JVD or thyroid abnormality Respiratory: Clear to auscultation bilaterally, Normal air movement Cardiovascular: Regular rate/rhythm, Normal S1 S2 Gastrointestinal: Normal bowel sounds, No tenderness Musculoskeletal: Tenderness (Diffuse pain lower extremity to palpation) Integumentary: No rashes Neurological: Normal strength at 5/5 x4 extr, Normal tone, Normal affect Lymphatics: No axilla or inguinal lymphadenopathy - Studies Laboratory Data (last 24 hrs) 07/03/18 19:25: PT 9.6, INR 0.82 07/03/18 19:25: WBC 10.6, Hgb 13.0, Hct 38.9, Plt Count 231 07/03/18 19:25: Sodium 141, Potassium 3.9, BUN 22 H, Creatinine 2.70 H, Glucose 262 H, Magnesium 2.1, Total Bilirubin 0.2, AST 14 L, ALT 26, Alkaline Phosphatase 131 H, Lipase 191 Microbiology Data (last 24 hrs): 07/03/18 19:25 Nasopharnyx Influenza Type A Antigen Screen - Final 07/03/18 19:25 Nasopharnyx Influenza Type B Antigen Screen - Final Assessment and Plan - Problems (Diagnosis) (1) Chest pain Onset Date: 10/16/16 Current Visit: No Status: Acute Qualifiers: Chest pain type: unspecified Qualified Code(s): R07.9 - Chest pain, unspecified (2) Chronic kidney disease Onset Date: 12/22/17 Current Visit: No Status: Acute Qualifiers: Chronic kidney disease stage: stage 3 (moderate) Qualified Code(s): N18.3 - Chronic kidney disease, stage 3 (moderate) (3) Diabetes mellitus type II, uncontrolled Onset Date: 10/08/15 Current Visit: No Status: Acute Qualifiers: Glycemic state: with hyperglycemia Qualified Code(s): E11.65 - Type 2 diabetes mellitus with hyperglycemia (4) Hypertension Onset Date: 03/03/17 Current Visit: No Status: Chronic Qualifiers: Hypertension type: essential hypertension - Plan The patient will be admitted to the hospital due to chest pain, initial troponin I negative, EKG shows no acute ST-T abnormality, however D-dimer is elevated. Since the patient has CKD, will order a V/Q scan to rule out PE. Will continue with empiric full anticoagulation, consult front office representative for evaluation recommendation. - Advance Directives Does patient have a Living Will: No Does patient have a Durable POA for Healthcare: No - Code Status/Comfort Care Code Status Assessed: Yes Code Status: Full Code
[2018-07-04 06:37] LABS: Potassium 4.1 mmol/L (3.5-5.1)
[2018-07-04] MEDS: INSULIN -REGULAR HUMAN 50 UNIT/0.5 ML ML SQ SCH ×4 (07:30→20:43)
[2018-07-04] MEDS ORDERED: ENOXAPARIN 40 MG/0.4 ML SQ SCH (09:00)
--- NOTE | 2018-07-04 10:23 | RAD REPORT ---
EXAM DESCRIPTION: NM - Vent Perfusion VQ Scan - 07/04/2018 8:34 am CLINICAL HISTORY: R/O PE Chest pain, shortness of breath COMPARISON: Vent Perfusion VQ Scan dated 10/15/2016 TECHNIQUE: 15.1mCi Xe-133 gas inhaled and 7.3mCi Tc-MAA IV. Planar ventilation scan was performed in posterior projection after Xe-133 gas inhalation (wash-in, e quilibrium, and wash-out phases) followed by perfusion scan with Tc-MAA IV in multiple projections. Examination is correlated with recent chest radiograph. FINDINGS: Normal ventilation with appropriate wash-out and no significant air-trapping. No mismatched segmental perfusion defect. IMPRESSION: Very low probability of acute pulmonary embolism.
--- NOTE | 2018-07-04 13:01 | CON ---
Brief History: Ms. Woo is 42. She had a hypoglycemic episode shortly after an insulin injection. It looks like she has not been eating very much, lost some weight from her previous visits. She was hypoglycemic. She started to have chest pain and her whole body feels like there is pain everywhere . She has a history of diabetes for a decade or so. She has a history of multiple strokes in [facility] 2017, cardiac cath was normal. Her stroke was in the left hippocampal gyrus and was in February 2017. Since she has been here in the hospital, her enzymes have been normal, her EKG is normal. Her CAT scan was normal and MRI was not repeated this hospitalization. Outpatient Medications: Insulin glargine, sucralfate, and lisinopril with hydrochlorothiazide. Allergies: SHE HAS NO KNOWN ALLERGIES. Physical Examination: General: She is alert, oriented, pleasant 42-year-old woman. Vital Signs: Height 5 feet 4 inches, weight 133 pounds. Lungs: Clear. Heart: Normal. Extremities: Normal pulses. Diagnostic Data: EKG and enzymes are normal. Impression: This pain throughout her body related to hypoglycemia. I do not think this is an acute coronary syndrome, and I will recommend against doing another stress test, the last one was false pos itive. I think our approach should be to do an echocardiogram tomorrow, if it shows no wall motion a bnormality, and she feels better, she could be discharged. We will do another cardiac cath if there is significant EKG changes or enzyme changes, but I would be reluctant to order a nuclear stress test knowing that it was false positive just 11 months ago. BRADEN Voice ID: [id number] Report ID: [id number]
[2018-07-04] MEDS: SUCRALFATE 1 GM TABLET PO SCH ×2 (13:19→20:45)
[2018-07-04] MEDS: LISINOPRIL 20 MG TAB PO SCH (16:10)
[2018-07-04] MEDS: hydroCHLOROthiazide 12.5 MG CAP PO SCH (16:10)
[2018-07-04] MEDS: ONDANSETRON 4 MG/2 ML VIAL IV PRN (16:11)
[2018-07-05] MEDS: ONDANSETRON 4 MG/2 ML VIAL IV PRN (01:05)
[2018-07-05] MEDS: ACETAMINOPHEN 500 MG TAB PO PRN ×3 (01:06→14:55)
[2018-07-05] MEDS: ENOXAPARIN 60 MG/0.6 ML SQ SCH (05:53)
[2018-07-05 06:43] LABS: Albumin 1.4 g/dL (3.4-5.0); Bilirubin Direct 0.1 mg/dL (0-0.2); Bilirubin Total 0.2 mg/dL (0.2-1.0); Potassium 4.7 mmol/L (3.5-5.1); Protein, Total 4.1 g/dL (6.4-8.2)
[2018-07-05] MEDS: INSULIN -REGULAR HUMAN 50 UNIT/0.5 ML ML SQ SCH ×2 (07:30→11:30)
[2018-07-05] MEDS: LISINOPRIL 20 MG TAB PO SCH (08:40)
[2018-07-05] MEDS: hydroCHLOROthiazide 12.5 MG CAP PO SCH (08:40)
[2018-07-05] MEDS ORDERED: HOME MED 1 EA UNK (Lisinopril/Hydrochlorothiazide [Lisinopril-Hctz 20-12.5 Mg Tab] 1 TAB) PO SCH (09:00)
--- NOTE | 2018-07-05 09:46 | ECHO ---
HEIGHT: 5 ft 4 in WEIGHT: 133 lb 8 oz DATE OF STUDY: 07/05/[address]: 2-DIMENSIONAL: YES M.MODE: YES DOPPLER: YES COLOR FLOW: YES TDS: NO PORTABLE: NO DEFINITY: NO BUBBLE STUDY: NO DIAGNOSIS: CHEST PAIN WITH HYPOGLYCEMIA CARDIAC HISTORY: CATHERIZATION: NO SURGERY: NO PROSTHETIC VALVE: NO PACEMAKER: NO MEASUREMENTS (cm) DIASTOLIC (NORMALS) SYSTOLIC (NORMALS) IVSd 1.1 (0.6-1.2) LA Diam 3.3 (1.9-4.0) LVEF 63% LVIDd 3.4 (3.5-5.7) LVIDs 2.3 (2.0-3.5) %FS 33% LVPWd 1.2 (0.6-1.2) Ao Diam 2.0 (2.0-3.7) 2 DIMENSIONAL ASSESSMENT: RIGHT ATRIUM: NORMAL LEFT ATRIUM: NORMAL RIGHT VENTRICLE: NORMAL LEFT VENTRICLE: NORMAL TRICUSPID VALVE: NORMAL MITRAL VALVE: NORMAL PULMONIC VALVE: NORMAL AORTIC VALVE: NORMAL PERICARDIAL EFFUSION: NONE AORTIC ROOT: NORMAL LEFT VENTRICULAR WALL MOTION: NORMAL DOPPLER/COLOR FLOW: NORMAL COMMENTS: NORMAL 2D ECHOCARDIOGRAM WITH DOPPLER. TECHNOLOGIST: SARA ARMANDO RDCS
[2018-07-05] MEDS: SUCRALFATE 1 GM TABLET PO SCH ×2 (10:15→14:55)
[2018-07-05 11:37] VITALS: O2SAT 97
[2018-07-05 15:30] VITALS: BP 142/76; TEMP 97.4
--- NOTE | 2018-07-05 15:51 | P.SSS ---
Patient History Date of Service: 07/05/18 Reason for admission: Chest pain History of Present Illness: Ms Woo a 42-year-old woman with history of diabetes mellitus, CVA, hypertension, who was having dinner with her family and suddenly she start feeling weak, complaining of chest pain. She also stated that her legs were heavy and difficult to move them. No history of shortness of breath, fever or chills. The history was provided by her sister since the patient was sedated but pain medication at the time of my encounter. Laboratory work remarkable for normal troponin I, normal WBC count, elevated creatinine consistent with her history of CKD, EKG shows not acute ST-T abnormalities. O2 sat 100% on room air, BP was somewhat elevated 167/73, HR 88, afebrile. Allergies Allergies No Known Allergies Allergy (Verified 07/04/18 00:42) Home Medications: Insulin Glargine,Hum.rec.anlog [Toujeo Solostar] 300 sqbot SQ DAILY 12/22/17 Lisinopril/Hydrochlorothiazide [Lisinopril-Hctz 20-12.5 mg Tab] 1 tab PO DAILY 07/04/18 Sucralfate [Carafate -Tab] 1 gm PO TID 07/04/18 - Past Medical/Surgical History Has patient received pneumonia vaccine in the past: No Diabetic: Yes -: Legally blind, diabetic retinopathy -: Hypertension -: Depression with anxiety -: History of thyroid cancer -: Hyperlipidemia -: Tobacco abuse -: GERD -: COPD -: Chronic renal disease -: Diabetic retinopathy and nephropathy -: Cholecystectomy -: Thyroidectomy -: Multiple eye surgeries -: Psychosocial/ Personal History: The patient is . She has 1 child. She is disabled. - Family History Father -: Heart disease, Hypertension, Other (see notes) Notes: thyroid problems Mother -: Diabetes, Kidney disease - Social History Smoking Status: Current some day smoker Alcohol use: Yes CD- Drugs: No Caffeine use: Yes Place of Residence: Home Review of Systems 10-point ROS is otherwise unremarkable Physical Examination - Vital Signs Temperature: 97.4 F Blood Pressure: 142/76 Pulse: 91 Respirations: 18 Pulse Ox (%): 100 - Physical Exam General: Alert, In no apparent distress HEENT: Atraumatic, PERRLA, Mucous membr. moist/pink, EOMI, Sclerae nonicteric Neck: Supple, 2+ carotid pulse no bruit, No LAD, Without JVD or thyroid abnormality Respiratory: Clear to auscultation bilaterally, Normal air movement Cardiovascular: Regular rate/rhythm, Normal S1 S2 Gastrointestinal: Normal bowel sounds, No tenderness Musculoskeletal: No tenderness Integumentary: No rashes Neurological: Normal gait, Normal speech, Normal strength at 5/5 x4 extr, Normal tone, Normal affect Lymphatics: No axilla or inguinal lymphadenopathy - Diagnosis (Problem(s)) (1) Chest pain Onset Date: 07/05/18 Current Visit: Yes Status: Ruled-out Qualifiers: Chest pain type: unspecified Qualified Code(s): R07.9 - Chest pain, unspecified (2) CVA (cerebral vascular accident) Onset Date: 03/09/17 Current Visit: No Status: Chronic Qualifiers: (3) Chronic kidney disease Onset Date: 12/22/17 Current Visit: No Status: Chronic Qualifiers: Chronic kidney disease stage: stage 3 (moderate) Qualified Code(s): N18.3 - Chronic kidney disease, stage 3 (moderate) (4) Diabetes mellitus type II, uncontrolled Onset Date: 10/08/15 Current Visit: No Status: Chronic Qualifiers: Glycemic state: with hyperglycemia Qualified Code(s): E11.65 - Type 2 diabetes mellitus with hyperglycemia (5) Diabetic gastroparesis Onset Date: 09/02/17 Current Visit: No Status: Chronic (6) COPD (chronic obstructive pulmonary disease) Onset Date: 03/03/17 Current Visit: No Status: Chronic Qualifiers: COPD type: chronic bronchitis Chronic bronchitis type: unspecified Qualified Code(s): J42 - Unspecified chronic bronchitis (7) Tobacco abuse Onset Date: 03/03/17 Current Visit: No Status: Chronic Treatment Summary: Overall during the hospital stay patient remained stable Patient was admitted to the hospital for chest pain ACS rule out. Cardiology was consulted who recommended the patient get a echocardiogram done here in the hospital which was done which was within normal limits no wall motion abnormality was noted. Patient ACS was ruled out. No stress test was done as patient has falsely positive stress test 11 months ago. Cardiology recommended that if patient continues to have chest pains she could have outpatient workup with catheterization done. However this is not needed at this time. Patient has chronic body pain along with neuropathic pain is secondary to uncontrolled diabetes and mild most likely secondary to diabetic neuropathy. Patient was educated extensively on the use of pain medication and the need to follow up with a primary care provider and possibly pain management doctor. Patient demonstrated understanding and thus was discharged home under stable condition - Disposition Disposition: ROUTINE DISCHARGE Condition: GOOD Diet: Regular Activity: Ad abdias
== END 2018-07-05 15:54 | disposition home or self-care (01) ==
LOC: ER 18:52 → ERHOLD 21:42 → 2ND 07-04 00:26
PROVIDERS: ADMIT Internal Medicine; ATTEND Internal Medicine
DX: R07.9 Chest pain, unspecified (principal); I12.9 Hypertensive chronic kidney disease with stage 1 through stage 4 chronic kidney disease, or unspecified chronic kidney disease; E11.22 Type 2 diabetes mellitus with diabetic chronic kidney disease; E11.65 Type 2 diabetes mellitus with hyperglycemia; N18.3 Chronic kidney disease, stage 3 (moderate); H54.8 Legal blindness, as defined in USA; F41.8 Other specified anxiety disorders; J44.9 Chronic obstructive pulmonary disease, unspecified; E78.5 Hyperlipidemia, unspecified; Z86.73 Personal history of transient ischemic attack (TIA), and cerebral infarction without residual deficits
CPT/HCPCS: 36415 ×2; 70450; 71045; 78582; 80048 ×2; 80053; 80076; 82248; 82962 ×6; 83690; 83735; 83880; 84484 ×3; 85025 ×2; 85379; 85610; 87804 ×2; 93005; 93306; 96361; 96374; 96375; 99285; A9540; A9558; G0378 ×2; J1650 ×2; J2405 ×3; J7030 ×3; 81003; 81015

== ENCOUNTER 2018-08-23 09:48 | Observation (INO) | payer OTHER ==
--- OUTSIDE RECORDS SUMMARY | 2018-08-23 09:51 | XMS REPORT | Clinical Summary ---
:1975 Author Organization [facility] Address [address] [place] [address] Care Team Providers Name Role Phone Unavailable [...] Not on file Results Not on fileafter 08/22/2017 Insurance Payer Benefit Plan / Group Subscriber ID Type Phone Address [employer] - MEDICARE UNITED MED[employer]ARE HMO xxxxxxxxx [facility] Advance Directives For more information, please contact:[address] [phone] Code Status Date Activated Date Inactivated Comments Full Code 03/14/2017 8:30 PM 03/20/2017 12:11 PM This code status was determined by: Patient
--- OUTSIDE RECORDS SUMMARY | 2018-08-23 09:52 | XMS REPORT | Continuity of Care Document ---
:1975 Author Organization Interface Problems Problem Status Onset Classification Date Comments Source Date Reported EGD Active [facility] 018 Nigel K31.84, R11.2, Active [facility] K21.0 018 Matthews GASTRIC EMPTYING Active [facility] 018 Nigel UNK Active [facility] 018 [place] Nephrotic syndrome Active Finding 09/04/[address] [facility]18 [facility] [place] Dyslipidemia Active Finding 09/04/[address] [facility] 018 [facility] [place] Diarrhea Active Finding 09/04/[address] [facility] 018 [facility] [place] Diabetic Active Finding 09/04/[address] [facility] gastroparesis 018 [facility] [place] Intractable Active Finding 09/04/[address] [facility] vomiting with 018 [facility] - nausea [place] Chest pain, rule Active Finding 09/04/[address] [facility] acute 017 [facility] myocardial [place] infarction TIA Active Finding 09/04/[address] [facility] 017 [facility] [place] Encounter for Active Finding 09/04/[address] [facility] rehabilitation 017 [facility] [place] CVA Active Finding 09/04/[address] [facility] 017 [facility] [place] Cerebrovascular Active Finding 09/04/[address] [facility] [address] accident 017 [facility] [place] Depression with Active Finding 09/04/[address] [facility] [address] anxiety 017 [facility] [place] Diabetes mellitus Active Finding 09/04/[address] [facility] 017 [facility] [place] Dyspnea Resolved Finding 09/04/[address] [facility] 017 [facility] [place] Hyperlipidemia Active Finding 09/04/[address] [facility] [address] 017 [facility] [place] Chronic renal Active Finding 09/04/[address] [facility] [address] disease 017 [facility] [place] Tobacco abuse Active Finding 09/04/[address] [facility] 017 [facility] [place] Weakness Active Finding 09/04/[address] [facility] 017 [facility] [place] COPD Active Finding 09/04/[address] [facility] 017 [facility] [place] GERD Active Finding 09/04/[address] [facility] 017 [facility] [place] Hypertension Active Finding 09/04/[address] [facility] 017 [facility] [place] Chronic obstructive Active Finding 09/04/[address] [facility] [address] pulmonary disease 017 [facility] [place] Gastroesophageal Active Finding 09/04/[address] [facility] [address] reflux disease 017 [facility] [place] SOB Active Finding 09/04/[address] [facility] [address] 017 [facility] [place] Chest pain Active Finding 09/04/[address] [facility] 017 [facility] [place] UTI Active Finding 09/04/[address] [facility] 016 [facility] [place] Diabetes mellitus Active Finding 09/04/[address] [facility] [address] type II, 016 [facility] - uncontrolled [place] Abdominal pain Active Finding 09/04/[address] [facility] 016 [facility] [place] Vomiting Active Finding 09/04/[address] [facility] 016 [facility] [place] Hypokalemia Active Finding 09/04/[address] [facility] [address] 016 [facility] [place] Chest pain Inactive Finding 09/04/[address] [facility] [facility] [place] Hypertensive Inactive Finding 09/04/[address] [facility] [address] disorder, systemic [facility] - arterial [place] Diabetes mellitus Inactive Finding 09/04/[address] [facility] [address] type 2 [facility] [place] Hyperlipidemia Inactive Finding 09/04/[address] [facility] [facility] [place] Legal blindness Inactive Finding 09/04/[address] [facility] [facility] [place] Osteoarthritis Inactive Finding 09/04/[address] [facility] [facility] [place] Vomiting Inactive Finding 09/04/[address] [facility] [facility] [place] Unstable angina Active Finding 09/04/[address] [facility] [facility] [place] Pneumonia, Active Finding 09/04/[address] [facility] bacterial [facility] [place] Intractable nausea Active Finding 09/04/[address] [facility] [address] and vomiting [facility] [place] DDD Active Finding 09/04/[address] [facility] [facility] [place] Obesity Active Finding 09/04/[address] [facility] [facility] [place] Bacterial pneumonia Active Finding 09/04/[address] [facility] [address] [facility] [place] Medications Medication Details Route Status Patient Ordering Order Source Instructions Provider Date Amlodipine DAILY Active Quinn [facility] 2018 [facility] [place] Hydrocodone THREE TIMES Active [facility] Bit/Acetaminophe A DAY PRN 2018 [facility] n For Pain [place] Levofloxacin DAILY Active Quinn [facility] 2017 [facility] [place] Tramadol Hcl TWICE DAILY Active [facility] PRN For 2017 [facility] Pain [place] Lisinopril DAILY Active [facility] 2017 [facility] [place] Atorvastatin AT BEDTIME Active [facility] Calcium 2017 [facility] [place] Ciprofloxacin TWICE DAILY Active [facility] Hcl 2017 [facility] [place] Neomycin/Polymyx TWICE DAILY AURICULAR Active [facility] 08/06/ [facility] St[facility] in B Sulf/Hc (OTIC) 2017 [facility] [place] Insulin DAILY PRN Active St. Glargine,Hum.Rec For glucose 2017 [facility] .Anlog [place] Cyclosporine DAILY PRN OPHTHALMIC Active [facility] For 2017 [facility] Abdominal [place] Cramps Prednisolone DAILY PRN OPHTHALMIC Active [facility] Acetate For Pain 2017 [facility] [place] Metoprolol TWICE DAILY Active Prezas [facility] Tartrate 2017 [facility] [place] Gabapentin TWICE DAILY Active [facility] 2017 [facility] [place] Hydrocodone THREE TIMES Active St[facility] Bit/Acetaminophe A DAY PRN 2017 [facility] n For Pain [place] Insulin SEE COMMENT Active St. Glargine,Hum.Rec 2017 [facility] - .Anlog [place] Esomeprazole Mag DAILY Active [facility] Trihydrate 2017 [facility] [place] Fenofibrate DAILY Active 10/14/ [facility] 2017 [facility] [place] Levothyroxine DAILY AT Active [facility] 0600 2017 [facility] [place] Losartan/Hydroch DAILY Active [facility] lorothiazide 2017 [facility] [place] Prednisol Acet NEEDED Active St. 1% Opth 2016 [facility] [place] Alprazolam DAILY PRN Active [facility] For Anxiety 2017 [facility] [place] Ondansetron Q6H PRN For Active [facility] Nausea / 2017 [facility] Vomiting [place] Metoclopramide Q6H Active [facility] Hcl 2016 [facility] [place] Hydrocodone WITH MEALS Active St[facility] Bit/Acetaminophe NEEDED 2016 [facility] - n PRN For [place] Pain Lisinopril/[place] TWICE DAILY Active St[facility] chlorothiazide 2013 [facility] [place] Meloxicam DAILY Active St[facility] 2013 [facility] [place] Metoclopramide BEFORE Active St. MEALS AND 2013 [facility] - AT BEDTIME [place] Allergies, Adverse Reactions, Alerts Substance Category Reaction Severity Reaction Status Date Comments Source type Reported No Known NONE Allergy to Active [facility] Drug Substance 8 [facility] - Allergies [place] Immunizations Immunization Date Given Site Status Last Comments Source Updated Influenza Adult 07/23/[address] [facility] Vaccine - [place] Results Order Name Results Value Reference Date Interpretation Comments Source Range Stomach Stomach Patient Name: GIGI CONROY 05/24 - [facility] emptying emptying [place] /2017 - [facility] : 1975; Age: 42 years Female MR: [id number] Read by: Melissa Mott MD Dictated Date/time: 05/24/18 16:00 Study: Stomach emptying [place] 05/24/2018 10:11 AM CDT Electronically Signed by: Melissa Mott MD 05/24/18 16:02 FINAL REPORT CLINICAL INDICATION: - gastroparesis, GERD. COMPARISON: None TECHNIQUE: Gastric emptying study is performed using 1 mCi of technetium 99m sulfur colloid mixed with scrambled egg and toast administered orally. Total of 4 hours of static imaging was performed at 30 minute intervals in the frontal plane up to 2 hours followed by additional planar imaging at 3 hours and 4 hours. The data was used for gastric emptying calculation/extrapolation. FINDINGS: There is normal gastric emptying noted. There is progression of the radiotracer into bowel. The T-1/2 is 106 minutes (normal for solids < 90 minutes). Gastric emptying at 90 minutes: 41 % Gastric emptying at 2 hours: 51 % (normal greater than 60%) Gastric emptying at 3 hours: 77 % (normal greater than 70%) Gastric emptying at 4 hours: 90 % (normal greater than 90%) IMPRESSION: Mildly delayed gastric emptying suggestive of mild gastroparesis. SL: [id number] Laboratory Urine Random 545 mg/dl 09/[address] [facility] [address] Studies Total [facility] - Protein [place] Laboratory Urine 8.35 09/[address] [facility] [address] Studies Protein/Crea [facility] - tinine Ratio [place] Laboratory Urine 65.3 mg/dL 09/[address] [facility] [address] Studies Creatinine [facility] [place] Laboratory Total 0.6 mg/dL 0.3 - 1.2 09/[address] [facility] [address] Studies Bilirubin [facility] [place] Laboratory Sodium Level 140 mEq/L 135 - 145 09/[address] [facility] [address] Studies [facility] [place] Laboratory Serum Total 3.7 g/dL 6.0 - 8.3 09/[address] [facility] [address] Studies Protein [facility] [place] Laboratory Potassium 3.6 mEq/L 3.6 - 5.0 09/[address] [facility] [address] Studies Level [facility] [place] Laboratory Phosphorus 3.2 mg/dL 2.5 - 4.3 09/[address] [facility] [address] Studies Level [facility] [place] Laboratory Glucose 104 mg/dL 65 - 120 09/[address] [facility] [address] Studies Level [facility] [place] Laboratory Globulin 2.6 g/dL 2.3 - 3.5 09/[address] [facility] [address] Studies /2017 [facility] [place] Laboratory Estimat 33 mL/min 90 09/[address] [facility] [address] Studies Glomerular [facility] - Filtration [place] Rate Laboratory Creatinine 1.72 mg/dL 0.44 - 09/[address] [facility] [address] Studies 1.00 [facility] [place] Laboratory Chloride 117 mEq/L 101 - 111 09/[address] [facility] [address] Studies Level /2017 [facility] [place] Laboratory Carbon 19 mEq/L 21 - 31 09/[address] [facility] [address] Studies Dioxide /2017 [facility] - Level [place] Laboratory Calcium 7.3 mg/dL 8.5 - 10.5 09/[address] [facility] [address] Studies Level /2017 [facility] [place] Laboratory Blood Urea 13 mg/dL 6 - 20 09/[address] [facility] [address] Studies Nitrogen /2017 [facility] [place] Laboratory Aspartate 16 IU/L 10 - 42 09/[address] [facility] [address] Studies Amino Transf /2017 [facility] - (AST/SGOT) [place] Laboratory Alkaline 73 IU/L 42 - 121 09/04 [facility]. Studies Phosphatase /2017 [facility] [place] Laboratory Albumin/Glob 0.4 1.1 - 1.8 09/04 [facility]. Studies ulin Ratio /2017 [facility] [place] Laboratory Albumin 1.1 g/dL 3.2 - 5.5 09/[address] [facility] [address] Studies /2017 [facility] [place] Laboratory Alanine 12 IU/L 10 - 60 09/04 [facility]. Studies Aminotransfe /2017 [facility] - rase [place] (ALT/SGPT) Laboratory Parathyroid 64 pg/mL 12 - 88 09/03 [facility]. Studies Hormone /2017 [facility] - (Intact) [place] Laboratory Hemoglobin 8.6 % 4 - 6.0 09/[address] [facility] [address] Studies A1c /2017 [facility] [place] Laboratory Thyroid 0.75 0.34 - 09/03 [facility]. Studies Stimulating uIU/mL 5.60 [facility] - Hormone [place] (TSH) Laboratory White Blood 9.3 K/uL 4.3 - 10.9 09/[address] [facility] [address] Studies Count /2017 [facility] [place] Laboratory Red Cell 13.7 % 12.1 - 09/03 [facility]. Studies Distribution 15.2 /2017 [facility] - Width [place] Laboratory Red Blood 4.16 M/uL 3.86 - 09/03 [facility]. Studies Count 4.86 [facility] [place] Laboratory Platelet 233 K/uL 152 - 406 09/[address] [facility] [address] Studies Count /2017 [facility] [place] Laboratory Neutrophils 71.9 % 41.7 - 09/[address] [facility] [address] Studies % 73.7 /2017 [facility] [place] Laboratory Monocytes % 9.6 % 3.3 - 12.3 09/[address] [facility] [address] Studies /2017 [facility] [place] Laboratory Mean 9.7 fL 7.6 - 11.3 09/[address] [facility] [address] Studies Platelet [facility] - Volume [place] Laboratory Mean 90.1 fL 80 - 100 09/[address] [facility] [address] Studies Corpuscular /2017 [facility] - Volume [place] Laboratory Mean 33.3 g/dL 32.0 - 09/[address] [facility] [address] Studies Corpuscular 36.0 [facility] - Hemoglobin [place] Concent Laboratory Mean 30.0 pg 27.0 - 09/[address] [facility] [address] Studies Corpuscular 35.0 [facility] - Hemoglobin [place] Laboratory Lymphocytes 16.6 % 15.3 - 09/[address] [facility] [address] Studies % 44.8 [facility] [place] Laboratory Hemoglobin 12.5 g/dL 12.0 - 09/[address] [facility] [address] Studies 15.0 /2017 [facility] [place] Laboratory Hematocrit 37.5 % 36.0 - 09/[address] [facility] [address] Studies 45.0 [facility] [place] Laboratory Eosinophils 1.4 % 0 - 4.4 09/[address] [facility] [address] Studies % /2017 [facility] [place] Laboratory Basophils % 0.5 % 0 - 1.3 09/[address] [facility] [address] Studies /2017 [facility] [place] Laboratory Absolute 6.7 K/uL 1.8 - 8.0 09/[address] [facility] [address] Studies Neutrophil [facility] - [place] Laboratory Absolute 0.9 K/uL 0.1 - 1.3 09/[address] [facility] [address] Studies Monocytes [facility] - (CBC) [place] Laboratory Absolute 1.6 K/uL 0.7 - 4.9 09/[address] [facility] [address] Studies Lymphocytes [facility] - (CBC) [place] Laboratory Absolute 0.1 K/uL 0 - 0.5 09/[address] [facility] [address] Studies Eosinophils [facility] - (CBC) [place] Laboratory Absolute 0.0 K/uL 0 - 0.5 09/[address] [facility] [address] Studies Basophils [facility] - (CBC) [place] Laboratory Urine 1.020 09/[address] [facility] [address] Studies Specific /2017 [facility] [place] Laboratory Urine Urine 09/02 [facility]. Studies [facility] - Test Test [place] Laboratory Urine pH 6.0 09/[address] [facility] [address] Studies /2017 [facility] [place] Laboratory Urine Total Urine 09/02 [facility]. Studies Protein Total /2017 [facility] - Protein [place] Laboratory Urine Urine 09/02 . Studies Nitrite Nitrite /2017 [facility] [place] Laboratory Urine Urine 09/02 [facility]. Studies Leukocyte Leukocyte /2017 [facility] - Esterase Esterase [place] Laboratory Urine Urine 09/02 . Studies Ketones Ketones /2017 [facility] [place] Laboratory Urine Urine 09/02 [facility]. Studies Glucose Glucose /2017 [facility] [place] Laboratory Urine Blood Urine 09/02 [facility]. Studies Blood /2017 [facility] [place] Laboratory Procalcitoni 0.77 ng/mL 09/01 [facility]. Studies n [facility] [place] Laboratory Segmented 81 % 40 - 80 09/01 [facility]. Studies Neutrophils /2017 [facility] [place] Laboratory Reactive 2 % 09/01 [facility]. Studies Lymphocytes /2017 [facility] [place] Laboratory Monocytes 6 % 0 - 10 09/[address] [facility] [address] Studies /2017 [facility] [place] Laboratory Lymphocytes 8 % 15 - 42 09/01 [facility]. Studies /2017 [facility] [place] Laboratory Blood Blood 09/01 [facility] Studies Morphology Morphology /2017 [facility] - Comment Comment [place] Laboratory Band 3 % 0 - 1 09/01 [facility]. Studies Neutrophils [facility] - [place] Laboratory Direct 0.2 mg/dL 0 - 0.2 09/01 [facility]. Studies Bilirubin /2017 [facility] [place] Laboratory Lipase 12 U/L 22 - 51 09/01 St. Studies /2017 [facility] [place] Laboratory Triglyceride 154 mg/dL 35 - 160 08/[address] [facility] [address] Studies s Level /2016 [facility] [place] Laboratory LDL 173 08/06 [facility]. Studies Cholesterol, /2016 [facility] - Calculated [place] Laboratory HDL 41 mg/dL 29 - 89 08/06 [facility]. Studies Cholesterol /2016 [facility] [place] Laboratory Cholesterol/ 5.98 08/06 [facility]. Studies HDL Ratio /2016 [facility] [place] Laboratory Cholesterol 245 mg/dL 08/06 [facility]. Studies Level /2016 [facility] [place] Laboratory Creatine 0.6 ng/ml 0.3 - 4.0 08/[address] [facility] [address] Studies Kinase MB [facility] [place] Laboratory Creatine 29 IU/L 22 - 269 08/[address] [facility] [address] Studies Kinase /2016 [facility] [place] Laboratory Troponin I null 08/[address] [facility] [address] Studies /2016 [facility] [place] Laboratory B-Type 137 pg/ml 08/[address] [facility] [address] Studies Natriuretic [facility] - Peptide [place] Laboratory Magnesium 1.7 mg/dL 1.8 - 2.5 08/[address] [facility] [address] Studies Level /2016 [facility] [place] Laboratory Rapid null 08/[address] [facility] [address] Studies Troponin I /2016 [facility] [place] Laboratory Prothrombin 10.4 9.5 - 12.5 08/[address] [facility] [address] Studies Time SECONDS /2016 [facility] [place] Laboratory INR 0.88 08/[address] [facility] [address] Studies Internationa [facility] - l Normalized [place] Ratio Laboratory Activated 29.4 24.3 - 08/[address] [facility] [address] Studies Partial SECONDS 36.9 [facility] - Thromboplast [place] Time Vital Signs Vital Sign Value Date Comments Source Heart Rate 65 09/04/[address] [facility] [address] [facility] [place] Systolic (mm Hg) 126 [facility] [place] Diastolic (mm Hg) 61 09[facility]04[facility] [place] Temperature Oral (F) 96.8 F 09/04/[address] [facility] [address] Tyrese - [place] Respitory [facility] 64 09/03/2017 [facility] - [place] Weight 191 09/03/2017 [facility] [place] Encounters Location Location Encounter Encounter Reason Attending ADM DC Status Source Details Type Number For Provider Date Date Visit [facility] Discharged [id number] 08/06 08/[address] [facility] [address] [place] [facility] Discharged [id number] 09/01 09/[address] [facility] [address] [facility] [place] Procedures Procedure Code Date Perfomer Comments Source Occult Blood [facility] 8 - [place] Thorax Wo Con [id number] [facility] 8 - [place] Anaerobic Blood [id number] [facility] Culture 8 - [place] Aerobic Blood [id number] [facility] Culture 8 - [place] Chest Single [id number] [facility] View 8 - [place] Influenza Type B [facility] Antigen Screen 8 - [place] Influenza Type A [facility] Antigen Screen 8 - [place] PLAIN [id number] [facility] RADIOGRAPHY OF 7 - [place] MULT COR ART USING OTH CONTRAST Chest Single [id number] [facility] View 7 - [place]
--- OUTSIDE RECORDS SUMMARY | 2018-08-23 09:53 | XMS REPORT ---
:1975 [facility] [address] [place] [address] Dr. Soto [address] [place] [id number] Care Team Providers Name Role Phone ARON [...] Range Comments FACTOR V LEIDEN (BEAKER) (test nyfa=806) Negative for the R506Q (Factor V Leiden) mutation [id number] (BEAKER) (test Martínez Wang MD (electronic signature) ujul=5112) This test is a genotyping assay which [...] [facility]. It has not been cleared or approved by the U.S. Food and Drug Administration (FDA), since FDA approval is not required for clinical use of the test. Validation was done as required by the Clinical Laboratory Improvement Amendments of 1988.POCT-GLUCOSE [id number] 07:28:00 Test Item Value Reference Range Comments POC-GLUCOSE METER (BEAKER) 200 mg/dL 70-110 TESTED AT [facility] [address] (test hnph=6195) [facility] [address] POCT-GLUCOSE [id number] 21:18:00 Test Item Value Reference Range Comments POC-GLUCOSE METER (BEAKER) 211 mg/dL 70-110 TESTED AT [facility] [address] [place] [address] (test udos=0756) [facility] [address] PROTEIN, RANDOM [id number] 19:43:00 Test Item Value Reference Range Comments PROTEIN, URINE (BEAKER) (test vvor=1730) 286 mg/dL 0-14 CREATININE, RANDOM [id number] 18:27:00 Test Item Value Reference Range Comments CREATININE URINE (BEAKER) (test sifn=029) 29.3 mg/dL Reference Range: No NormalsDILUTE SHIRA VIPER VENOM (DRVV)2017-03-19 12:47:00 Test Item Value Reference Range Comments PROTIME (BEAKER) (test 11.3 seconds 11.7-14.7 tfuh=030) INR (BEAKER) (test lqph=578) 0.8 <=5.9 PARTIAL THROMBOPLASTIN TIME 28.0 seconds 22.5-36.0 (BEAKER) (test xjcg=044) DRVV INTERPRETATION (BEAKER) Normal DRVV Results (test wmpu=4610) DRVV INTERPRETATION (BEAKER) Normal Hexagonal Phospholipid (test bqgs=421424) GEBC-VBUYIATPVOV-552 (BEAKER) Martínez Wang MD (electronic (test fycz=3952) signature) DRVV SCREEN RATIO (BEAKER) 0.84 <1.20 (test apjw=7033) Effective 12/20/2013: Test Method ChangeDRVV Screen Ratio, DRVV 1/1 Screen Ratio, DRVV Confirm Ratio,DRVV Normalized Ratio Reference Range: <1.2Protime Reference Range ChangeNew: 11.7-14.7 Previous: 9.8-12.0PTT Reference Range ChangeNew: 22.5-36.0 Previous: 25.8-34.5URINE [id number] 11:40:00 Test Item Value Reference Range Comments CULTURE (BEAKER) (test 20-29,000 col/mL skin lei pdjs=2864) POCT-GLUCOSE [id number] 08:33:00 Test Item Value Reference Range Comments POC-GLUCOSE METER (BEAKER) 293 mg/dL 70-110 TESTED AT [address] (test klyo=8799) [facility] [address] VITAMIN D, [id number] 07:49:00 Test Item Value Reference Range Comments VITAMIN D 25-OH (BEAKER) (test nyvh=5349) < ng/mL 13.0-47.8 CBC W/PLT COUNT & AUTO [id number] 05:59:00 Test Item Value Reference Range Comments WHITE BLOOD CELL COUNT (BEAKER) (test lwxi=276) 9.4 K/ L 3.5-10.5 RED BLOOD CELL COUNT (BEAKER) (test qadt=266) 4.16 M/ L 3.93-5.22 HEMOGLOBIN (BEAKER) (test vunm=453) 12.7 GM/DL 11.2-15.7 HEMATOCRIT (BEAKER) (test avws=044) 38.0 % 34.1-44.9 MEAN CORPUSCULAR VOLUME (BEAKER) (test mhyl=930) 91.3 fL 79.4-94.8 MEAN CORPUSCULAR HEMOGLOBIN (BEAKER) (test 30.5 pg 25.6-32.2 dtnj=270) MEAN CORPUSCULAR HEMOGLOBIN CONC (BEAKER) (test 33.4 GM/DL 32.2-35.5 xhxy=328) RED CELL DISTRIBUTION WIDTH (BEAKER) (test 12.6 % 11.7-14.4 vdgy=975) PLATELET COUNT (BEAKER) (test tucz=212) 329 K/CU MM 150-450 MEAN PLATELET VOLUME (BEAKER) (test syxb=523) 10.0 fL 9.4-12.3 NUCLEATED RED BLOOD CELLS (BEAKER) (test 0 /100 WBC 0-0 hpis=866) NEUTROPHILS RELATIVE PERCENT (BEAKER) (test 68 % ukys=125) LYMPHOCYTES RELATIVE PERCENT (BEAKER) (test 23 % erid=174) MONOCYTES RELATIVE PERCENT (BEAKER) (test 7 % hqrx=118) EOSINOPHILS RELATIVE PERCENT (BEAKER) (test 1 % fqtx=850) BASOPHILS RELATIVE PERCENT (BEAKER) (test 1 % hajy=540) NEUTROPHILS ABSOLUTE COUNT (BEAKER) (test 6.35 K/ L 1.56-6.13 dgbj=567) LYMPHOCYTES ABSOLUTE COUNT (BEAKER) (test 2.16 K/ L 1.18-3.74 ukza=569) MONOCYTES ABSOLUTE COUNT (BEAKER) (test 0.68 K/ L 0.24-0.36 saxy=663) EOSINOPHILS ABSOLUTE COUNT (BEAKER) (test 0.10 K/ L 0.04-0.36 qnxu=945) BASOPHILS ABSOLUTE COUNT (BEAKER) (test 0.06 K/ L 0.01-0.08 gfdg=959) IMMATURE GRANULOCYTES-RELATIVE PERCENT (BEAKER) 0 % 0-1 (test ppnn=4578) BASIC METABOLIC [id number] 05:38:00 Test Item Value Reference Range Comments SODIUM (BEAKER) (test 135 meq/L 136-145 aboz=857) POTASSIUM (BEAKER) (test 4.1 meq/L 3.5-5.1 josa=629) CHLORIDE (BEAKER) (test 102 meq/L 98-107 npfn=216) CO2 (BEAKER) (test 25 meq/L 22-29 hftl=923) BLOOD UREA NITROGEN 12 mg/dL 7-21 (BEAKER) (test mngs=124) CREATININE (BEAKER) (test 1.99 mg/dL 0.57-1.25 woml=867) GLUCOSE RANDOM (BEAKER) 290 mg/dL 70-105 (test ulip=154) CALCIUM (BEAKER) (test 8.7 mg/dL 8.4-10.2 ebuj=168) EGFR (BEAKER) (test 27 mL/min/1.73 sq m ESTIMATED GFR IS NOT fdbn=0565) ACCURATE CREATININE CLEARANCE IN PREDICTING GLOMERULAR FILTRATION RATE. ESTIMATED GFR IS NOT APPLICABLE FOR DIALYSIS PATIENTS. [id number] 05:37:00 Test Item Value Reference Range Comments PHOSPHORUS (BEAKER) (test qgym=199) 4.1 mg/dL 2.3-4.7 [id number] 05:37:00 Test Item Value Reference Range Comments MAGNESIUM (BEAKER) (test mjcy=427) 1.7 mg/dL 1.6-2.6 PTH, [id number] 05:34:00 Test Item Value Reference Range Comments PARATHYROID HORMONE INTACT (BEAKER) (test 57.2 pg/mL 8.5-72.5 uzci=781) Effective 07/04/2014: Reference Range ChangeNew: 8.5-72.5 Previous: 15.0- 90.0CARDIOLIPIN ANTIBODIES, IGG AND [id number] 22:36:00 Test Item Value Reference Range Comments ANTICARDIOLIPIN IGG ANTIBODY (BEAKER) (test < GPL dazj=467) ANTICARDIOLIPIN IGM ANTIBODY (BEAKER) (test 2.8 MPL dicq=806) Anticardiolipin IgG Result Interpretation:NEG: <20 GPL; U/mlPOS: >/=20 GPL; U/mlAnticardiolipin IgM Result Interpretation:NEG: <20 MPL; U/mlPOS: >/=20 MPL; U/mlPOCT-GLUCOSE [id number] 21:25:00 Test Item Value Reference Range Comments POC-GLUCOSE METER (BEAKER) 198 mg/dL 70-110 TESTED AT [address] (test fpvb=6840) [place] [address] POCT-GLUCOSE [id number] 16:29:00 Test Item Value Reference Range Comments POC-GLUCOSE METER (BEAKER) 296 mg/dL 70-110 TESTED AT [address] (test pthk=3289) [place] [address] ANTI-NUCLEAR ANTIBODY (MARY)2017-03-18 15:30:00 Test Item Value Reference Range Comments ANTI-NUCLEAR ANTIBODY (MARY) (BEAKER) (test Negative Negative gayq=477) HEXAGONAL [id number] 13:21:00 Test Item Value Reference Range Comments HEXAGONAL PHOSPHOLIPID (BEAKER) (test ydgy=6271) Negative POCT-GLUCOSE [id number] 12:15:00 Test Item Value Reference Range Comments POC-GLUCOSE METER (BEAKER) 140 mg/dL 70-110 TESTED AT [address] (test fgqq=3232) [place] [id number] PROTEIN C [id number] 11:44:00 Test Item Value Reference Range Comments PROTEIN C ACTIVITY (BEAKER) (test glby=454) 155.0 % 70.0-130.0 Effective 12/20/2013: Reference Range Change-Adult onlyNew: 70.0-130.0 Previous : 70.0-140.0See Protein C Antigen.ANTITHROMBIN [id number] 11:43:00 Test Item Value Reference Range Comments ANTITHROMBIN III ACTIVITY (BEAKER) (test ooig=505) 87.0 % 80.0-120.0 Effective 12/20/2013: Reference Range Change-Adult onlyNew: 80.0-120.0 Previous : 90.0-128.0POCT-GLUCOSE [id number] 08:17:00 Test Item Value Reference Range Comments POC-GLUCOSE METER (BEAKER) 107 mg/dL 70-110 TESTED AT [facility] [address] (test xcdo=8917) [facility] [address] BASIC METABOLIC [id number] 06:32:00 Test Item Value Reference Range Comments SODIUM (BEAKER) (test 136 meq/L 136-145 ends=554) POTASSIUM (BEAKER) (test 3.6 meq/L 3.5-5.1 ojph=902) CHLORIDE (BEAKER) (test 104 meq/L 98-107 gyzo=356) CO2 (BEAKER) (test 23 meq/L 22-29 zvpg=264) BLOOD UREA NITROGEN 11 mg/dL 7-21 (BEAKER) (test rmxp=721) CREATININE (BEAKER) (test 1.68 mg/dL 0.57-1.25 nmdq=570) GLUCOSE RANDOM (BEAKER) 99 mg/dL 70-105 (test keiy=787) CALCIUM (BEAKER) (test 8.4 mg/dL 8.4-10.2 bxhy=940) EGFR (BEAKER) (test 33 mL/min/1.73 sq m ESTIMATED GFR IS NOT wdjs=8811) ACCURATE CREATININE CLEARANCE IN PREDICTING GLOMERULAR FILTRATION RATE. ESTIMATED GFR IS NOT APPLICABLE FOR DIALYSIS PATIENTS. CBC W/PLT COUNT & AUTO [id number] 05:56:00 Test Item Value Reference Range Comments WHITE BLOOD CELL COUNT (BEAKER) (test ehal=750) 11.7 K/ L 3.5-10.5 RED BLOOD CELL COUNT (BEAKER) (test nqsw=537) 3.95 M/ L 3.93-5.22 HEMOGLOBIN (BEAKER) (test tuxb=957) 12.1 GM/DL 11.2-15.7 HEMATOCRIT (BEAKER) (test tgsc=997) 36.3 % 34.1-44.9 MEAN CORPUSCULAR VOLUME (BEAKER) (test ymsj=346) 91.9 fL 79.4-94.8 MEAN CORPUSCULAR HEMOGLOBIN (BEAKER) (test 30.6 pg 25.6-32.2 upju=037) MEAN CORPUSCULAR HEMOGLOBIN CONC (BEAKER) (test 33.3 GM/DL 32.2-35.5 sefw=116) RED CELL DISTRIBUTION WIDTH (BEAKER) (test 12.7 % 11.7-14.4 vdmt=329) PLATELET COUNT (BEAKER) (test jxtb=772) 349 K/CU MM 150-450 MEAN PLATELET VOLUME (BEAKER) (test iddr=200) 10.8 fL 9.4-12.3 NUCLEATED RED BLOOD CELLS (BEAKER) (test 0 /100 WBC 0-0 ofki=950) NEUTROPHILS RELATIVE PERCENT (BEAKER) (test 59 % osjm=823) LYMPHOCYTES RELATIVE PERCENT (BEAKER) (test 31 % srrl=368) MONOCYTES RELATIVE PERCENT (BEAKER) (test 8 % desz=033) EOSINOPHILS RELATIVE PERCENT (BEAKER) (test 2 % xukx=650) BASOPHILS RELATIVE PERCENT (BEAKER) (test 1 % bdyf=215) NEUTROPHILS ABSOLUTE COUNT (BEAKER) (test 6.87 K/ L 1.56-6.13 qsls=540) LYMPHOCYTES ABSOLUTE COUNT (BEAKER) (test 3.57 K/ L 1.18-3.74 evgo=439) MONOCYTES ABSOLUTE COUNT (BEAKER) (test 0.90 K/ L 0.24-0.36 ubgi=035) EOSINOPHILS ABSOLUTE COUNT (BEAKER) (test 0.24 K/ L 0.04-0.36 zdej=068) BASOPHILS ABSOLUTE COUNT (BEAKER) (test 0.06 K/ L 0.01-0.08 lubs=963) IMMATURE GRANULOCYTES-RELATIVE PERCENT (BEAKER) 0 % 0-1 (test bzno=1456) POCT-GLUCOSE [id number] 04:32:00 Test Item Value Reference Range Comments POC-GLUCOSE METER (BEAKER) 107 mg/dL 70-110 TESTED AT [address] (test djil=9974) [facility] [address] POCT-GLUCOSE [id number] 22:21:00 Test Item Value Reference Range Comments POC-GLUCOSE METER (BEAKER) 118 mg/dL 70-110 TESTED AT [address] (test nvwu=8285) [facility] [address] POCT-GLUCOSE [id number] 21:22:00 Test Item Value Reference Range Comments POC-GLUCOSE METER (BEAKER) 52 mg/dL 70-110 Notified ARMOND REYNOSO/TESTED AT [facility] (test qmup=3548) [address] [place] [address] MICROALBUMIN, RANDOM [id number] 17:57:00 Test Item Value Reference Range Comments MICROALBUMIN URINE (BEAKER) (test ndyg=9050) > mg/dL Reference Range: No NormalsURINALYSIS W/ [id number] 17:36:00 Test Item Value Reference Range Comments COLOR (BEAKER) (test pzdh=521) Light Yellow CLARITY (BEAKER) (test pvjo=827) Clear SPECIFIC GRAVITY UA (BEAKER) (test rmsx=244) 1.005 1.001-1.035 PH UA (BEAKER) (test iblf=993) 7.0 5.0-8.0 PROTEIN UA (BEAKER) (test bsap=329) 300 mg/dL Negative GLUCOSE UA (BEAKER) (test emvg=257) 30 mg/dL Negative KETONES UA (BEAKER) (test aimt=514) Negative Negative BILIRUBIN UA (BEAKER) (test xwac=102) Negative Negative BLOOD UA (BEAKER) (test elqp=935) Negative Negative NITRITE UA (BEAKER) (test mnkl=203) Negative Negative LEUKOCYTE ESTERASE UA (BEAKER) (test akyo=758) Negative Negative UROBILINOGEN UA (BEAKER) (test xjfp=566) 0.2 mg/dL 0.2-1.0 RBC UA (BEAKER) (test lfgx=529) 1 /HPF WBC UA (BEAKER) (test kyal=512) < /HPF BACTERIA (BEAKER) (test pfpd=217) Rare SQUAMOUS EPITHELIAL (BEAKER) (test ylmz=678) 1 /HPF SOURCE(BEAKER) (test kppt=2367) Urine, Voided SCREEN, [id number] 17:36:00 Test Item Value Reference Range Comments TEST URINE (BEAKER) (test zxsr=787) Negative CREATININE, RANDOM [id number] 17:35:00 Test Item Value Reference Range Comments CREATININE URINE (BEAKER) (test exul=259) 33.9 mg/dL Reference Range: No NormalsSODIUM, RANDOM [id number] 17:35:00 Test Item Value Reference Range Comments SODIUM URINE (BEAKER) (test pkmd=441) 63 meq/L Reference Range: No NormalsPOCT-GLUCOSE [id number] 17:34:00 Test Item Value Reference Range Comments POC-GLUCOSE METER (BEAKER) 118 mg/dL 70-110 TESTED AT [address] (test acmi=1554) [facility] [address] POCT-GLUCOSE [id number] 13:28:00 Test Item Value Reference Range Comments POC-GLUCOSE METER (BEAKER) 71 mg/dL 70-110 TESTED AT [address] (test yqmp=9603) [facility] [address] POCT-GLUCOSE [id number] 10:37:00 Test Item Value Reference Range Comments POC-GLUCOSE METER (BEAKER) 144 mg/dL 70-110 TESTED AT [address] (test tjvj=0522) [facility] [address] POCT-GLUCOSE [id number] 07:18:00 Test Item Value Reference Range Comments POC-GLUCOSE METER (BEAKER) 60 mg/dL 70-110 TESTED AT [address] (test basa=3085) [place] [id number] CBC W/PLT COUNT & AUTO [id number] 05:51:00 Test Item Value Reference Range Comments WHITE BLOOD CELL COUNT (BEAKER) (test ybzj=911) 11.4 K/ L 3.5-10.5 RED BLOOD CELL COUNT (BEAKER) (test hunv=167) 3.81 M/ L 3.93-5.22 HEMOGLOBIN (BEAKER) (test smde=902) 11.6 GM/DL 11.2-15.7 HEMATOCRIT (BEAKER) (test rvzm=225) 34.5 % 34.1-44.9 MEAN CORPUSCULAR VOLUME (BEAKER) (test crtz=726) 90.6 fL 79.4-94.8 MEAN CORPUSCULAR HEMOGLOBIN (BEAKER) (test 30.4 pg 25.6-32.2 dlbm=403) MEAN CORPUSCULAR HEMOGLOBIN CONC (BEAKER) (test 33.6 GM/DL 32.2-35.5 olke=710) RED CELL DISTRIBUTION WIDTH (BEAKER) (test 12.6 % 11.7-14.4 jddq=866) PLATELET COUNT (BEAKER) (test swgm=256) 354 K/CU MM 150-450 MEAN PLATELET VOLUME (BEAKER) (test gurp=027) 10.4 fL 9.4-12.3 NUCLEATED RED BLOOD CELLS (BEAKER) (test 0 /100 WBC 0-0 dxmz=092) NEUTROPHILS RELATIVE PERCENT (BEAKER) (test 72 % hpwq=693) LYMPHOCYTES RELATIVE PERCENT (BEAKER) (test 20 % scnp=677) MONOCYTES RELATIVE PERCENT (BEAKER) (test 6 % pctu=403) EOSINOPHILS RELATIVE PERCENT (BEAKER) (test 1 % pzdk=673) BASOPHILS RELATIVE PERCENT (BEAKER) (test 0 % dnku=012) NEUTROPHILS ABSOLUTE COUNT (BEAKER) (test 8.21 K/ L 1.56-6.13 knlt=888) LYMPHOCYTES ABSOLUTE COUNT (BEAKER) (test 2.31 K/ L 1.18-3.74 jkvh=574) MONOCYTES ABSOLUTE COUNT (BEAKER) (test 0.65 K/ L 0.24-0.36 nkzr=648) EOSINOPHILS ABSOLUTE COUNT (BEAKER) (test 0.11 K/ L 0.04-0.36 yjfx=256) BASOPHILS ABSOLUTE COUNT (BEAKER) (test 0.05 K/ L 0.01-0.08 jnhw=354) IMMATURE GRANULOCYTES-RELATIVE PERCENT (BEAKER) 0 % 0-1 (test esot=7777) BASIC METABOLIC [id number] 05:51:00 Test Item Value Reference Range Comments SODIUM (BEAKER) (test 138 meq/L 136-145 dgno=222) POTASSIUM (BEAKER) (test 3.8 meq/L 3.5-5.1 twpp=343) CHLORIDE (BEAKER) (test 105 meq/L 98-107 dceb=109) CO2 (BEAKER) (test 26 meq/L 22-29 zyqg=308) BLOOD UREA NITROGEN 13 mg/dL 7-21 (BEAKER) (test imfd=255) CREATININE (BEAKER) (test 1.66 mg/dL 0.57-1.25 ayxw=576) GLUCOSE RANDOM (BEAKER) 167 mg/dL 70-105 (test fkxm=382) CALCIUM (BEAKER) (test 8.9 mg/dL 8.4-10.2 ahly=778) EGFR (BEAKER) (test 34 mL/min/1.73 sq m ESTIMATED GFR IS NOT wxyh=8565) ACCURATE CREATININE CLEARANCE IN PREDICTING GLOMERULAR FILTRATION RATE. ESTIMATED GFR IS NOT APPLICABLE FOR DIALYSIS PATIENTS. POCT-GLUCOSE [id number] 21:41:00 Test Item Value Reference Range Comments POC-GLUCOSE METER (BEAKER) 287 mg/dL 70-110 TESTED AT [facility] [address] [facility] (test lcdi=5454) [facility] [address] BASIC METABOLIC [id number] 12:35:00 Test Item Value Reference Range Comments SODIUM (BEAKER) (test 134 meq/L 136-145 stwx=992) POTASSIUM (BEAKER) (test 4.6 meq/L 3.5-5.1 cypo=758) CHLORIDE (BEAKER) (test 105 meq/L 98-107 sdwn=693) CO2 (BEAKER) (test 23 meq/L 22-29 tlbm=905) BLOOD UREA NITROGEN 14 mg/dL 7-21 (BEAKER) (test bdlz=249) CREATININE (BEAKER) 1.59 mg/dL 0.57-1.25 (test rfqu=055) GLUCOSE RANDOM (BEAKER) 266 mg/dL 70-105 (test hkgw=116) CALCIUM (BEAKER) (test 8.2 mg/dL 8.4-10.2 aoed=183) EGFR (BEAKER) (test 36 mL/min/1.73 sq m INSUFFICIENT CLINICAL DATA vfot=0980) TO CALCULATE ESTIMATED GFR.This is an appended report. These results have been appended to a previously final verified report. CBC W/PLT COUNT & AUTO [id number] 04:54:00 Test Item Value Reference Range Comments WHITE BLOOD CELL COUNT (BEAKER) (test atdp=814) 10.6 K/ L 3.5-10.5 RED BLOOD CELL COUNT (BEAKER) (test rmca=440) 3.55 M/ L 3.93-5.22 HEMOGLOBIN (BEAKER) (test jevf=855) 10.8 GM/DL 11.2-15.7 HEMATOCRIT (BEAKER) (test mfsp=338) 32.6 % 34.1-44.9 MEAN CORPUSCULAR VOLUME (BEAKER) (test tnyj=856) 91.8 fL 79.4-94.8 MEAN CORPUSCULAR HEMOGLOBIN (BEAKER) (test 30.4 pg 25.6-32.2 bqyl=506) MEAN CORPUSCULAR HEMOGLOBIN CONC (BEAKER) (test 33.1 GM/DL 32.2-35.5 pcgn=986) RED CELL DISTRIBUTION WIDTH (BEAKER) (test 12.3 % 11.7-14.4 pcxg=856) PLATELET COUNT (BEAKER) (test futu=458) 311 K/CU MM 150-450 MEAN PLATELET VOLUME (BEAKER) (test ibum=554) 10.2 fL 9.4-12.3 NUCLEATED RED BLOOD CELLS (BEAKER) (test 0 /100 WBC 0-0 mglq=806) NEUTROPHILS RELATIVE PERCENT (BEAKER) (test 71 % gzym=456) LYMPHOCYTES RELATIVE PERCENT (BEAKER) (test 20 % wmxk=412) MONOCYTES RELATIVE PERCENT (BEAKER) (test 6 % qbxn=308) EOSINOPHILS RELATIVE PERCENT (BEAKER) (test 3 % mqio=555) BASOPHILS RELATIVE PERCENT (BEAKER) (test 1 % pmmf=396) NEUTROPHILS ABSOLUTE COUNT (BEAKER) (test 7.51 K/ L 1.56-6.13 blzr=409) LYMPHOCYTES ABSOLUTE COUNT (BEAKER) (test 2.11 K/ L 1.18-3.74 xoqm=613) MONOCYTES ABSOLUTE COUNT (BEAKER) (test 0.60 K/ L 0.24-0.36 tvvk=544) EOSINOPHILS ABSOLUTE COUNT (BEAKER) (test 0.27 K/ L 0.04-0.36 hzsp=984) BASOPHILS ABSOLUTE COUNT (BEAKER) (test 0.07 K/ L 0.01-0.08 wxvo=351) IMMATURE GRANULOCYTES-RELATIVE PERCENT (BEAKER) 1 % 0-1 (test eunb=4079) [id number] 20:17:00 Test Item Value Reference Range Comments RPR SCREEN (BEAKER) (test qgar=427) Nonreactive Nonreactive POCT-GLUCOSE [id number] 18:09:00 Test Item Value Reference Range Comments POC-GLUCOSE METER (BEAKER) 215 mg/dL 70-110 TESTED AT [facility] [address] [facility] (test jdxo=8649) [place] [address] CBC W/PLT COUNT & AUTO [id number] 11:54:00 Test Item Value Reference Range Comments WHITE BLOOD CELL COUNT (BEAKER) (test sbix=685) 9.3 K/ L 3.5-10.5 RED BLOOD CELL COUNT (BEAKER) (test cumf=397) 3.45 M/ L 3.93-5.22 HEMOGLOBIN (BEAKER) (test ujqs=145) 10.7 GM/DL 11.2-15.7 HEMATOCRIT (BEAKER) (test gbhg=061) 32.0 % 34.1-44.9 MEAN CORPUSCULAR VOLUME (BEAKER) (test uibj=728) 92.8 fL 79.4-94.8 MEAN CORPUSCULAR HEMOGLOBIN (BEAKER) (test 31.0 pg 25.6-32.2 itqa=105) MEAN CORPUSCULAR HEMOGLOBIN CONC (BEAKER) (test 33.4 GM/DL 32.2-35.5 xcle=861) RED CELL DISTRIBUTION WIDTH (BEAKER) (test 12.7 % 11.7-14.4 hsrf=895) PLATELET COUNT (BEAKER) (test mhdu=935) 302 K/CU MM 150-450 MEAN PLATELET VOLUME (BEAKER) (test jfpu=568) 10.0 fL 9.4-12.3 NUCLEATED RED BLOOD CELLS (BEAKER) (test 0 /100 WBC 0-0 ddvy=784) NEUTROPHILS RELATIVE PERCENT (BEAKER) (test 60 % whej=078) LYMPHOCYTES RELATIVE PERCENT (BEAKER) (test 29 % fizg=214) MONOCYTES RELATIVE PERCENT (BEAKER) (test 8 % jvjk=423) EOSINOPHILS RELATIVE PERCENT (BEAKER) (test 3 % asus=013) BASOPHILS RELATIVE PERCENT (BEAKER) (test 1 % ruxb=668) NEUTROPHILS ABSOLUTE COUNT (BEAKER) (test 5.55 K/ L 1.56-6.13 ehff=227) LYMPHOCYTES ABSOLUTE COUNT (BEAKER) (test 2.65 K/ L 1.18-3.74 scmo=630) MONOCYTES ABSOLUTE COUNT (BEAKER) (test 0.70 K/ L 0.24-0.36 zcxx=023) EOSINOPHILS ABSOLUTE COUNT (BEAKER) (test 0.31 K/ L 0.04-0.36 bilw=922) BASOPHILS ABSOLUTE COUNT (BEAKER) (test 0.05 K/ L 0.01-0.08 gjxz=348) IMMATURE GRANULOCYTES-RELATIVE PERCENT (BEAKER) 0 % 0-1 (test ttov=8164) (MANUAL DIFFERENTIAL)2017-03-15 11:54:00 Test Item Value Reference Range Comments TOTAL COUNTED (BEAKER) (test glbu=8316) WBC MORPHOLOGY (BEAKER) (test twul=189) Normal PLT MORPHOLOGY (BEAKER) (test ksdp=095) Normal RBC MORPHOLOGY (BEAKER) (test wdrm=089) Normal SEDIMENTATION [id number] 10:27:00 Test Item Value Reference Range Comments SEDIMENTATION RATE, ERYTHROCYTE (BEAKER) (test 79 mm/HR 0-20 lggk=336) HEMOGLOBIN [id number] 09:33:00 Test Item Value Reference Range Comments HEMOGLOBIN A1C (BEAKER) (test vyuz=245) 9.8 % 4.3-6.1 VITAMIN [id number] 09:14:00 Test Item Value Reference Range Comments VITAMIN B12 (BEAKER) (test cfaq=243) 1790 pg/mL 213-816 TSH/FREE T4 IF [id number] 09:14:00 Test Item Value Reference Range Comments THYROID STIMULATING HORMONE (BEAKER) (test 1.08 uIU/mL 0.35-4.94 hgyy=193) BASIC METABOLIC [id number] 08:52:00 Test Item Value Reference Range Comments SODIUM (BEAKER) (test 137 meq/L 136-145 voyo=969) POTASSIUM (BEAKER) (test 4.7 meq/L 3.5-5.1 vvuj=078) CHLORIDE (BEAKER) (test 107 meq/L 98-107 komu=022) CO2 (BEAKER) (test 25 meq/L 22-29 yyut=504) BLOOD UREA NITROGEN 18 mg/dL 7-21 (BEAKER) (test qjbi=411) CREATININE (BEAKER) (test 1.77 mg/dL 0.57-1.25 meuw=852) GLUCOSE RANDOM (BEAKER) 290 mg/dL 70-105 (test lbpn=041) CALCIUM (BEAKER) (test 8.0 mg/dL 8.4-10.2 rhod=644) EGFR (BEAKER) (test mL/min/1.73 sq m INSUFFICIENT CLINICAL DATA ewqr=5617) TO CALCULATE ESTIMATED GFR. FastingLIPID [id number] 08:51:00 Test Item Value Reference Range Comments TRIGLYCERIDES (BEAKER) (test egln=412) 90 mg/dL CHOLESTEROL (BEAKER) (test inlx=441) 143 mg/dL HDL CHOLESTEROL (BEAKER) (test miig=630) 44 mg/dL LDL CHOLESTEROL CALCULATED (BEAKER) (test 81 mg/dL qqsn=017) Triglyceride Reference Range: Low Risk <150 Borderline 150- 199 High Risk 200-499 Very High Risk >=500Cholesterol Reference Range: Low Risk <200 Borderline 200-239 High Risk > 240HDL Cholesterol Reference Range: Low Risk >=60 High Risk <40LDL Cholesterol Reference Range: Optimal <100 Near Optimal 100-129 Borderline 130-159 High 160-189 Very High >=190 FastingHCG, QUANTITATIVE, [id number] 01:43:00 Test Item Value Reference Range Comments GONADOTROPIN, CHORIONIC (HCG) QUANT (BEAKER) (test < mIU/mL 0-10 qgwg=832) Non- Females: <10 mIU/mL Females: Gestation Age Reference Range(mIU/mL) 0.2-1 Week 5-50 1-2 Weeks 50-500 2-3 Weeks 100-5,000 3-4Weeks 500-10,000 4 -5 Weeks 1,000-50,000 5-6 Weeks 10,000-100,000 6-8 Weeks 15,000-200,000 2-3 Months 10,000-100,000COMPREHENSIVE METABOLIC [id number] 21:57:00 Test Item Value Reference Range Comments TOTAL PROTEIN (BEAKER) 5.0 gm/dL 6.0-8.3 (test mpwd=346) ALBUMIN (BEAKER) (test 2.1 g/dL 3.5-5.0 bskn=7305) ALKALINE PHOSPHATASE 106 U/L 40-150 (BEAKER) (test lorp=061) BILIRUBIN TOTAL (BEAKER) 0.2 mg/dL 0.2-1.2 (test enel=320) SODIUM (BEAKER) (test 137 meq/L 136-145 znzr=028) POTASSIUM (BEAKER) (test 4.7 meq/L 3.5-5.1 xljl=076) CHLORIDE (BEAKER) (test 106 meq/L 98-107 jxuk=816) CO2 (BEAKER) (test 25 meq/L 22-29 vjuk=821) BLOOD UREA NITROGEN 21 mg/dL 7-21 (BEAKER) (test ooyw=257) CREATININE (BEAKER) (test 2.00 mg/dL 0.57-1.25 lbxy=771) GLUCOSE RANDOM (BEAKER) 285 mg/dL 70-105 (test hnny=030) CALCIUM (BEAKER) (test 7.9 mg/dL 8.4-10.2 zyaw=581) AST (SGOT) (BEAKER) (test 16 U/L 5-34 oebg=755) ALT (SGPT) (BEAKER) (test 14 U/L 6-55 eneu=207) EGFR ([facility]) (test mL/min/1.73 sq m INSUFFICIENT CLINICAL DATA kroc=3626) TO CALCULATE ESTIMATED GFR. Unit CollectPOCT-GLUCOSE [id number] 21:50:00 Test Item Value Reference Range Comments POC-GLUCOSE METER ([facility]) 278 mg/dL 70-110 TESTED AT [facility] [id number] (test xjqr=8346) [facility] [id number]
[2018-08-23 10:29] LABS: Absolute Lymphocytes (CBC) 2.7 K/uL (0.7-4.9); Absolute Monocytes 0.6 K/uL (0.1-1.3); Absolute Neutrophil 7.1 K/uL (1.8-8.0); Basophils % 1.3 % (0-1.3); Eosinophils % 0.9 % (0-4.4); Hematocrit 40.9 % (36.0-45.0); Lymphocytes % 25.2 % (15.3-44.8); MPV 8.7 fL (7.6-11.3); Monocytes % 5.5 % (3.3-12.3); RBC Red Blood Cell Count 4.53 M/uL (3.86-4.86)
[2018-08-23 11:02] LABS: BUN Blood Urea Nitrogen 36 mg/dL (7-18); Bicarbonate 19 mmol/L (21-32); Glucose Level 119 mg/dL (74-106); Potassium 4.4 mmol/L (3.5-5.1); Sodium Level 141 mmol/L (136-145); Troponin (Emerg Dept Use Only) < 0.02 ng/mL (0.0-0.045)
--- NOTE | 2018-08-23 11:11 | RAD REPORT ---
EXAM DESCRIPTION: RAD - Chest Single View - 08/23/2018 11:06 am CLINICAL HISTORY: CHEST PAIN Chest pain. COMPARISON: Chest Single View dated 07/03/2018; Chest Single View dated 06/27/2018; Chest Single Vie w dated 02/01/2018; Chest Single View dated 12/21/2017 FINDINGS: Portable technique limits examination quality. The lungs are grossly clear. The heart is normal in size. No displaced fractures. IMPRESSION: No acute intrathoracic process suspected.
[2018-08-23] MEDS ORDERED: NA CHLORIDE 0.9% 1,000 ML ONE (11:32)
--- NOTE | 2018-08-23 11:41 | ER ---
Nurse's Notes [facility] Name: Archana Woo Age: 42 yrs Sex: Female : 1975 Arrival Date: 08/23/2018 Time: 09:39 Bed 7 Private MD: Maldonado Dahl E Diagnosis: Chest pain, unspecified;Dehydration;Acidosis Presentation: 08/23 09:40 Presenting complaint: EMS states: Chest pain that started last night, worsening this sg morning with nausea a 10/10, worsens with inspiration, pain in the left breast and left shoulder. Transition of care: patient was not received from another setting of care. Onset of symptoms was August 23, 2018. Risk Assessment: Do you want to hurt yourself or someone else? Patient reports no desire to harm self or others. Initial Sepsis Screen: Does the patient meet any 2 criteria? No. Patient's initial sepsis screen is negative. Does the patient have a suspected source of infection? No. Patient's initial sepsis screen is negative. Care prior to arrival: Medication(s) given: ASA, 81 mg, x 4, Glucose check: 119. 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 - Social history:: Smoking status: Patient/guardian denies using tobacco. - Ebola Screening: : Patient negative for fever greater than or equal to 101.5 degrees Fahrenheit, and additional compatible Ebola Virus Disease symptoms Patient denies exposure to infectious person Patient denies travel to an Ebola-affected area in the 21 days before illness onset No symptoms or risks identified at this time. - Family history:: not pertinent. - Hospitalizations: : No recent hospitalization is reported. Screenin:21 Abuse screen: Denies threats or abuse. Denies injuries from another. Nutritional iw screening: No deficits noted. Tuberculosis screening: No symptoms or risk factors identified. Fall Risk Fall in past 12 months (25 points). IV access (20 points). Assessment: 09:56 Reassessment: EKG at bedside, registration notified pt is ready for visitors at this sg time, reports daughter is in the lobby. 11:36 Reassessment: Patient appears in no apparent distress at this time. Patient and/or iw family updated on plan of care and expected duration. Pain level reassessed. Patient is alert, oriented x 3, equal unlabored respirations, skin warm/dry/pink. pt c/o pain to head and back, Dr. Canales notified, NS infusing to right wrist. 12:38 Reassessment: Patient appears in no apparent distress at this time. at bedside sg evaluating pt at this time. Vital Signs: 09:55 BP 150 / 84; Pulse 93; Resp 17; Temp 97.6; Pulse Ox 100% on R/A; sg 10:54 BP 143 / 83; Pulse 89; Resp 17; Pulse Ox 100% on R/A; sg 11:09 BP 124 / 86; Pulse 88; Pulse Ox 96% on R/A; sg ED Course: 09:39 Patient arrived in ED. sg 09:39 Maldonado Dahl MD is Private Physician. sg 09:42 Triage completed. sg 09:42 Arm band placed on. sg 09:45 Russ Canales MD is Attending Physician. rn 09:54 EKG done, by permit technician. reviewed by Russ Canales MD. at1 10:18 Rayo Noriega, RN is Primary Nurse. sg 10:21 Initial lab(s) drawn, by fl, sent to lab. Inserted saline lock: 22 gauge in right iw wrist, using aseptic technique. Blood collected. 10:24 X-ray completed. Portable x-ray completed in exam room. Patient tolerated procedure jb2 well. 11:06 XRAY Chest (1 view) In Process Unspecified. EDMS 11:40 Fariba Ventura MD is Hospitalizing Provider. rn Administered Medications: 11:36 Drug: NS 0.9% 1000 ml Route: IV; Rate: 1000 ml; Site: right wrist; iw 12:34 Drug: Demerol 25 mg Route: IVP; Site: right wrist; sg 13:00 Follow up: Response: No adverse reaction; Pain is decreased sg Outcome: 11:41 Decision to Hospitalize by Provider. rn 17:26 Patient left the ED. Signatures: Dispatcher [employer] EDRayo Ambriz RN RN Vernon Gomez2 Margarita Wheatley, RN ARMOND Russ Canales MD MD rn Smirch, Shelby, RN RN ss Gonzales, Amanda, work car operator EKG Tat1 Corrections: (The following items were deleted from the chart) 12:35 12:34 Demerol 25 mg IVP in right hand [facility]
--- NOTE | 2018-08-23 11:42 | EDPHYS ---
Physician Documentation [facility] Name: Archana Woo Age: 42 yrs Sex: Female : 1975 Arrival Date: 08/23/2018 Time: 09:39 Bed 7 Private MD: Maldonado Dahl E ED Physician Russ Canales HPI: 08/23 11:27 This 42 yrs old Female presents to ER via EMS with complaints of Chest Pain > rn 29 y/o. 11:27 The patient or guardian reports chest pain that is located primarily in the anterior rn aspect of left upper chest and left breast. 11:27 Onset: last night. The pain radiates to The chest pain is described as aching. rn Duration: The patient or guardian reports multiple episodes, that are intermittent. Severity of pain: At its worst the pain was moderate in the emergency department the pain has improved. The patient has experienced similar episodes in the past. Reports chest pain that began last night, radiates to left neck/shoulder, assoc with nausea/vomiting, + generalized weakness, no abd pain. . 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 - Social history:: Smoking status: Patient/guardian denies using tobacco. - Ebola Screening: : Patient negative for fever greater than or equal to 101.5 degrees Fahrenheit, and additional compatible Ebola Virus Disease symptoms Patient denies exposure to infectious person Patient denies travel to an Ebola-affected area in the 21 days before illness onset No symptoms or risks identified at this time. - Family history:: not pertinent. - Hospitalizations: : No recent hospitalization is reported. ROS: 11:27 Constitutional: Negative for fever, chills, and weight loss, Eyes: Negative for injury, rn pain, redness, and discharge, Neck: Negative for injury, and swelling, Cardiovascular: Negative for palpitations, and edema, Respiratory: Negative for shortness of breath, cough, wheezing, and pleuritic chest pain, Abdomen/GI: Negative for abdominal pain, diarrhea, and constipation, MS/Extremity: Negative for injury and deformity, Skin: Negative for injury, rash, and discoloration, Neuro: Negative for headache, numbness, tingling, and seizure. Exam: 11:27 Constitutional: This is a well developed, well nourished patient who is awake, alert, rn appears uncomfortable Head/Face: Normocephalic, atraumatic. ENT: dry MM Cardiovascular: Regular rate and rhythm with a normal S1 and S2. No gallops, murmurs, or rubs.No JVD. No pulse deficits. Respiratory: Lungs have equal breath sounds bilaterally, clear to auscultation. No increased work of breathing, no retractions or nasal flaring. Abdomen/GI: soft, non-tender MS/ Extremity: Pulses equal, no cyanosis. Neurovascular intact. Full, normal range of motion. Equal circumference. Neuro: Awake and alert, GCS 15, oriented to person, place, time, and situation. Motor strength 4/5 in all extremities. Sensory grossly intact. Vital Signs: 09:55 BP 150 / 84; Pulse 93; Resp 17; Temp 97.6; Pulse Ox 100% on R/A; sg 10:54 BP 143 / 83; Pulse 89; Resp 17; Pulse Ox 100% on R/A; sg 11:09 BP 124 / 86; Pulse 88; Pulse Ox 96% on R/A; sg MDM: 09:45 Patient medically screened. rn 11:39 Differential diagnosis: acute myocardial infarction, acute pericarditis, anxiety, chest rn wall pain, congestive heart failure costochondritis, esophagitis, gastritis, gastroesophageal reflux disease (GERD), pneumothorax. Data reviewed: vital signs, nurses notes, lab test result(s), EKG, radiologic studies, plain films, and as a result, I will admit patient. Counseling: I had a detailed discussion with the patient and/or guardian regarding: the historical points, exam findings, and any diagnostic results supporting the discharge/admit diagnosis, lab results, radiology results, the need for outpatient follow up, to return to the emergency department if symptoms worsen or persist or if there are any questions or concerns that arise at home. Special discussion: I discussed with the patient/guardian in detail that at this point there is no indication for admission to the hospital. It is understood, however, that if the symptoms persist or worsen the patient needs to return immediately for re-evaluation. 08/23 09:45 Order name: Basic Metabolic Panel; Complete Time: 11:03 rn 08/23 09:45 Order name: CBC with Diff; Complete Time: 11:03 rn 08/23 09:45 Order name: Troponin (emerg Dept Use Only); Complete Time: 11:03 rn 08/23 12:01 Order name: Troponin I EDSC 08/23 12:01 Order name: Troponin I EDSC 08/23 12:01 Order name: Troponin I EDSC 08/23 09:45 Order name: XRAY Chest (1 view); Complete Time: 11:15 rn 08/23 09:45 Order name: EKG; Complete Time: 09:50 rn 08/23 12:01 Order name: Troponin I EDSC 08/23 13:57 Order name: BMP 08/23 14:39 Order name: Basic Metabolic Panel EDSC 08/23 14:39 Order name: Troponin I EDSC 08/23 09:45 Order name: Cardiac monitoring; Complete Time: 10:20 rn 08/23 09:45 Order name: EKG - Nurse/Tech; Complete Time: 10:21 rn 08/23 09:45 Order name: IV Saline Lock; Complete Time: 10:20 rn 08/23 09:45 Order name: Labs collected and sent; Complete Time: 10:20 rn 08/23 09:45 Order name: O2 Per Protocol; Complete Time: 10:21 rn 08/23 09:45 Order name: O2 Sat Monitoring; Complete Time: 10:21 rn 08/23 11:06 Order name: Diet Heart Healthy; Complete Time: 11:07 sg 08/23 12:01 Order name: CONS Physician Consult EDSC 08/23 12:01 Order name: CONS Physician Consult EDSC Administered Medications: 11:36 Drug: NS 0.9% 1000 ml Route: IV; Rate: 1000 ml; Site: right wrist; iw 12:34 Drug: Demerol 25 mg Route: IVP; Site: right wrist; sg 13:00 Follow up: Response: No adverse reaction; Pain is decreased sg Disposition: 08/23/18 11:41 Hospitalization ordered by Fariba Ventura for Observation. Preliminary diagnosis are Chest pain, unspecified, Dehydration, Acidosis. - Bed requested for [facility] ER HOLD. - Status is Observation. ss - Condition is Stable. - Problem is new. - Symptoms have improved. UTI on Admission? No Signatures: Dispatcher [employer] EDRayo Ambriz, RN Margarita Kate RN RN iw Nieto, Roman, MD MD rn Smirch, Shelby, RN RN ss Botello, Elizabeth eb Corrections: (The following items were deleted from the chart) 14:03 11:41 Hospitalization Ordered by Fariba Ventura MD for Observation. Preliminary eb diagnosis is Chest pain, unspecified; Dehydration; Acidosis. Bed requested for Telemetry/MedSurg (observation). Status is Observation. Condition is Stable. Problem is new. Symptoms have improved. UTI on Admission? No. rn 17:26 14:03 08/23/2018 11:41 Hospitalization Ordered by Fariba Ventura MD for Observation. ss Preliminary diagnosis is Chest pain, unspecified; Dehydration; Acidosis. Bed requested for [facility] ER HOLD. Status is Observation. Condition is Stable. Problem is new. Symptoms have improved. UTI on Admission? No. eb
[2018-08-23] MEDS ORDERED: NA CHLORIDE 0.9% 1,000 ML IV SCH (12:00)
[2018-08-23] MEDS ORDERED: MEPERIDINE HCL 25 MG/0.5 ML ONE (12:39)
--- NOTE | 2018-08-23 12:52 | EKG ---
Test Date: 2018-08-23 Test Time: 09:54:43 Plant Maintenance Technician: ANITA MEASUREMENT RESULTS: Intervals: Rate: 93 SC: 134 QRSD: 72 QT: 372 QTc: 462 Sadler: P: 75 SC: 134 QRS: 9 T: 74 INTERPRETIVE STATEMENTS: Normal sinus rhythm Normal ECG Compared to ECG 07/03/2018 19:00:02 No significant changes Electronically Signed On 08-23-18 12:51:18 [employer]AY TECHNICIAN by Souleymane Julio
[2018-08-23 13:43] VITALS: BMI 25.7
[2018-08-23] MEDS ORDERED: ONDANSETRON 4 MG/2 ML VIAL IV PRN (13:56)
[2018-08-23] MEDS ORDERED: COLCHICINE 0.6 MG TAB PO PRN (13:59)
[2018-08-23 14:39] LABS: Potassium 3.8 mmol/L (3.5-5.1); Troponin I 0.02 ng/mL (0.0-0.045)
[2018-08-23] MEDS ORDERED: INSULIN -REGULAR HUMAN 50 UNIT/0.5 ML ML SQ SCH (16:30)
[2018-08-23] MEDS ORDERED: ONDANSETRON 4 MG/2 ML VIAL ONE (16:42)
[2018-08-23] MEDS ORDERED: ENOXAPARIN 30 MG/0.3 ML SQ SCH (17:00)
--- NOTE | 2018-08-23 17:29 | P.SSS ---
Patient History Date of Service: 08/23/18 Reason for admission: chest Pain History of Present Illness: This is a 42-year-old with significant past medical history of high blood pressure, uncontrolled diabetes, CVA, CHF, chronic kidney disease, extensive hospitalization due to noncompliance and uncontrolled diabetes who presented to the ED complaining of having chest pain that started last night. Patient stated that her pain was worse this morning with nausea on 10 on 10 falls. Patient's pain was worse during inspiration. Patient stated that she has had similar episodes in the past and was recently seen her in the hospital for the similar symptoms. Patient denied having any shortness of breath or any other associated symptoms with it. No other complaints were offered. In the ER patient had troponin x1 done along with lab work which was consistent with elevated creatinine and within normal limits. Troponin along with within normal limits EKG. Patient's chest pain had resolved by the time of my encounter. Patient and was admitted under observation to get troponins x2 and IV fluids and cardiology and nephrology consult. Allergies No Known Allergies Allergy (Verified 07/04/18 00:42) Home Medications: Insulin Glargine,Hum.rec.anlog [Toujeo Solostar] 300 sqbot SQ DAILY 12/22/17 Lisinopril/Hydrochlorothiazide [Lisinopril-Hctz 20-12.5 mg Tab] 1 tab PO DAILY 07/04/18 Sucralfate [Carafate*] 1 gm PO TID 07/04/18 - Past Medical/Surgical History Diabetic: Yes -: Legally blind, diabetic retinopathy -: Hypertension -: Depression with anxiety -: History of thyroid cancer -: Hyperlipidemia -: Tobacco abuse -: GERD -: COPD -: Chronic renal disease -: Diabetic retinopathy and nephropathy -: Cholecystectomy -: Thyroidectomy -: Multiple eye surgeries -: Psychosocial/ Personal History: The patient is . She has 1 child. She is disabled. - Family History Father -: Heart disease, Hypertension, Other (see notes) Notes: thyroid problems Mother -: Diabetes, Kidney disease - Social History Alcohol use: Yes CD- Drugs: No Caffeine use: Yes Review of Systems 10-point ROS is otherwise unremarkable Physical Examination - Physical Exam General: Alert, In no apparent distress HEENT: Atraumatic, PERRLA, Mucous membr. moist/pink, EOMI, Sclerae nonicteric Neck: Supple, 2+ carotid pulse no bruit, No LAD, Without JVD or thyroid abnormality Respiratory: Clear to auscultation bilaterally, Normal air movement Cardiovascular: Regular rate/rhythm, Normal S1 S2 Gastrointestinal: Normal bowel sounds, No tenderness Musculoskeletal: No tenderness Integumentary: No rashes Neurological: Normal gait, Normal speech, Normal strength at 5/5 x4 extr, Normal tone, Normal affect Lymphatics: No axilla or inguinal lymphadenopathy - Studies Laboratory Data (last 24 hrs) 08/23/18 10:15: WBC 10.6, Hgb 13.9, Hct 40.9, Plt Count 388 08/23/18 10:15: Sodium 141, Potassium 4.4, BUN 36 H, Creatinine 3.20 H, Glucose 119 H - Diagnosis (Problem(s)) (1) Chest pain, rule out acute myocardial infarction Onset Date: 08/06/17 Current Visit: No Status: Acute (2) Chronic kidney disease Onset Date: 12/22/17 Current Visit: No Status: Chronic Qualifiers: Chronic kidney disease stage: stage 3 (moderate) Qualified Code(s): N18.3 - Chronic kidney disease, stage 3 (moderate) (3) COPD (chronic obstructive pulmonary disease) Onset Date: 03/03/17 Current Visit: No Status: Chronic Qualifiers: COPD type: chronic bronchitis Chronic bronchitis type: unspecified Qualified Code(s): J42 - Unspecified chronic bronchitis (4) CVA (cerebral vascular accident) Onset Date: 03/09/17 Current Visit: No Status: Chronic Qualifiers: (5) DDD (degenerative disc disease) Current Visit: No Status: Chronic Qualifiers: Spinal region: lumbar Qualified Code(s): M51.36 - Other intervertebral disc degeneration, lumbar region (6) Depression with anxiety Onset Date: 03/03/17 Current Visit: No Status: Chronic (7) Diabetes mellitus type II, uncontrolled Onset Date: 10/08/15 Current Visit: No Status: Chronic Qualifiers: Glycemic state: with hyperglycemia Qualified Code(s): E11.65 - Type 2 diabetes mellitus with hyperglycemia (8) GERD (gastroesophageal reflux disease) Onset Date: 03/03/17 Current Visit: No Status: Chronic Qualifiers: Esophagitis presence: esophagitis presence not specified Qualified Code(s) : K21.9 - Gastro-esophageal reflux disease without esophagitis (9) Hyperlipidemia Onset Date: 03/03/17 Current Visit: No Status: Chronic Qualifiers: (10) Hypertension Onset Date: 03/03/17 Current Visit: No Status: Chronic Qualifiers: Hypertension type: essential hypertension (11) Tobacco abuse Onset Date: 03/03/17 Current Visit: No Status: Chronic (12) Dyspnea Onset Date: 03/03/17 Current Visit: No Status: Resolved Qualifiers: Dyspnea type: shortness of breath Qualified Code(s): R06.02 - Shortness of breath Treatment Summary: Overall during the hospital stay patient remained stable Patient was admitted to the hospital for chest pain ACS rule out. In x2 remained negative. EKG was within normal limits. Patient had recent hospitalization for similar complaints at that time Cardiology had recommended that patient can be discharged home and no further workup is required. Recent echocardiogram was also within normal limits. If patient Continues to have chest pains, after discharge she could have outpatient workup with catheterization done with cardiology. However this is not needed at this time. Patient has chronic body pain along with neuropathic pain is secondary to uncontrolled diabetes and mild most likely secondary to diabetic neuropathy. In addition patient was also found to have acute kidney injury on chronic kidney disease. Nephrology was consulted who recommended IV fluids. Repeated creatinine was trending down. Patient was educated extensively on the use of pain medication and the need to follow up with a primary care provider, cardiology, nephrology and possibly pain management doctor. Patient demonstrated understanding and thus was discharged home under stable condition. - Disposition Condition: GOOD Diet: Regular Activity: Ad abdias
--- NOTE | 2018-08-23 20:49 | CON ---
History Of Present Illness: Mrs. Woo came to the hospital because of chest pain. The pain is in t he upper part of her chest. It has been there for 4 days. It is worse with a deep breath, seems to be better when she is lying down, worse when she sits up. She has been through a workup for heart di sease before. A nuclear stress test was abnormal, but a cardiac cath was normal in 2017, actually 13 months ago. The patient has never had myocardial infarction or stroke. Never had any kind of vascu lar intervention. She has a history of strokes. She has a history of blindness, depression, diabete s, dyslipidemia, hypertension, thyroid cancer, neuropathy. She had cholecystectomy, tonsillectomy, c esarean section, and thyroid resection because of a tumor. Medications: We do not seem to have a list of her outpatient medications. Physical Examination: General: She is alert, oriented, appears to be depressed. She is wearing dark glasses otherwise. HE ENT: Unremarkable. Lungs: Clear. Heart: Within normal limits. There is a 1/6 systolic murmur. It sounds like it may be an innocent flow murmur. Abdomen: Soft. Extremities: Reveal palpable pulses. No cyanosis, clubbing, or edema. Diagnostic Data: Her last echocardiogram was about a month ago and it was completely normal. Impression: The patient may have pericarditis, perhaps what I am hearing is a murmur, may be a frict ion rub. I do not think this is an acute coronary syndrome. Troponins are normal. So, we will ask her to do a treadmill, a plain treadmill. If she cannot do it, I do not want to do another nuclear s tress test because it is so likely to be false positive. We could consider doing a dobutamine stress echo, but we will just see if she can walk on a treadmill with a lot of people helping her hold on a nd get some idea of whether she has ischemic heart disease from that. Thank you very much for your kind referral of Mrs. Woo. I will follow her with you. MOISES/KERI Voice ID: [id number] Report ID: [id number]
[2018-08-23 22:57] VITALS: TEMP 97.6
[2018-08-23 23:02] VITALS: BP 124/86; O2SAT 96
[2018-08-24] MEDS ORDERED: ENOXAPARIN 40 MG/0.4 ML SQ SCH (09:00)
--- NOTE | 2018-08-24 14:55 | CON ---
Date of Consultation: 08/23/2018 Chief Complaint: Acute on chronic kidney injury. History Of Present Illness: Acute on chronic kidney injury, moderately severe, associated with prerenal azotemia. Renal hypoperfusion in setting of chronic kidney disease, stage 4. The patient has advanced chronic kidney disease, stage 4. She presented to the hospital because of chest pain. She describes pain as left-sided pain in the precordial area as well as axillary area, which was worse in deep inspiration. She was found to have acute on chronic kidney injury, nonoliguric, moderately severe, associated with hypovolemia and manifested by metabolic acidosis with normal anion gap. Bicarbonate was 19, chloride 110, sodium 141, and potassium 4.4. She had dehydration and volume depletion. Troponin level was less than 0.02. The patient received IV fluids. Chest x-ray did not show acute changes. The patient has chronic kidney disease, stage 4. On previous occasion, creatinine level was ranging from 1.6 to 1.8. On arrival to the hospital, the patient was found to have creatinine of 3.20. The patient received IV fluids and she was evaluated by Cardiology for acute coronary syndrome. It did not show any evidence of acute myocardial infarction. She never had myocardial infarction or stroke. She denies urinary retention and kidney stones. She denies hematuria. Review of Systems: Constitutional: Denies fever, chills. Eyes: Denies vision changes. Ears, Nose, Mouth, and Throat: Denies sore throat or earache. Respiratory: Denies PND or orthopnea. Was complaining of some shortness of breath as well as chest pain that are resolved. The patient was medicated with IV fluids for dehydration. All other systems reviewed and all are negative. Past Medical History: Chronic kidney disease, stage 3/4; diabetes mellitus; hypertension. The patient is legally blind. She has diabetic retinopathy, diabetic nephropathy, hypertension, depression, anxiety, history of thyroid cancer, hyperlipidemia, GERD, COPD, diabetic neuropathy, cholecystectomy, thyroidectomy, multiple eye surgeries, . Family History: Hypertension, hypertensive heart disease in her mother. Father , hypertension. Mother, diabetes and kidney disease. Social History: Denies tobacco, alcohol, or illicit drugs. Physical Examination: General: The patient is awake, alert. She has severe diabetic retinopathy. She is legally blind. EYES: Anicteric sclerae. No hemorrhagic changes. Ears, Nose, Mouth, and Throat: Oral mucosa moist. No pallor. Neck: Supple. No JVD. No bruits. Lungs: Clear to auscultation bilaterally. Heart: S1, S2. No pericardial friction rub. Abdomen: Soft, benign, nontender. Extremities: No edema. No clubbing. No cyanosis. SKIN : warm and dry , no skin rashes NEUROLOGIC : no tremor, follows commands Laboratory Work: Sodium 141, potassium 4.4, chloride 110, CO2 of 19, BUN 36, creatinine 3.20, glucose 119, calcium 8.7. Impression And Plan: 1. Acute on chronic kidney injury. The patient will follow up with Nephrology outpatient. Continue IV fluids for hydration. The patient developed prerenal azotemia with nonoliguric acute tubular necrosis. Avoid nonsteroidal anti-inflammatory medication. 2. History of hypertension. Continue low-sodium diet. Adjust medication to prevent hypotensive episode. Blood pressure is stabilizing. Recent blood pressure was 124/86. 3. Anxiety, per primary team. 4. Diabetes mellitus. The patient cannot take metformin due to advanced chronic kidney disease. 5. Diabetes mellitus, diabetic nephropathy. Monitor proteinuria and adjust medication in outpatient setting. Avoid RUBEN inhibitor due to acute kidney injury. When kidney function stabilizes, the patient may resume RUBEN inhibitor as recommended by putty and caulking supervisor. TAMIKA/KERI Voice ID: [id number] Report ID: [id number] MTDD
== END 2018-08-23 16:50 | disposition home or self-care (01) ==
LOC: ER 09:48 → ERHOLD 11:56
PROVIDERS: ADMIT Family Medicine; ATTEND Family Medicine
DX: R07.9 Chest pain, unspecified (principal); I12.9 Hypertensive chronic kidney disease with stage 1 through stage 4 chronic kidney disease, or unspecified chronic kidney disease; E11.22 Type 2 diabetes mellitus with diabetic chronic kidney disease; E11.65 Type 2 diabetes mellitus with hyperglycemia; N18.3 Chronic kidney disease, stage 3 (moderate); N17.9 Acute kidney failure, unspecified; H54.8 Legal blindness, as defined in USA; F41.8 Other specified anxiety disorders; E78.5 Hyperlipidemia, unspecified; K21.9 Gastro-esophageal reflux disease without esophagitis; M51.36 Other intervertebral disc degeneration, lumbar region; F17.210 Nicotine dependence, cigarettes, uncomplicated; Z85.850 Personal history of malignant neoplasm of thyroid; Z91.19 Patient's noncompliance with other medical treatment and regimen; Z86.73 Personal history of transient ischemic attack (TIA), and cerebral infarction without residual deficits; J44.9 Chronic obstructive pulmonary disease, unspecified
CPT/HCPCS: 36415; 71045; 80048 ×2; 84484 ×2; 85025; 93005; 96374; 99284; G0378 ×2; J2175; J2405; J7030

== ENCOUNTER 2018-11-22 15:25 | Inpatient (IN) | payer OTHER ==
--- OUTSIDE RECORDS SUMMARY | 2018-11-22 15:54 | XMS REPORT | Continuity of Care Document ---
:1975 Author Organization Interface Problems Problem Status Onset Classification Date Comments Source Date Reported EGD Active [facility] [address] [place] K31.84, R11.2, Active [facility] K21.0 [address] [place] GASTRIC EMPTYING Active [facility] [address] [place] UNK Active [facility] [address] [place] Nephrotic syndrome Active Finding 09/04/[address] [facility] [address] [...] - [place] Bacterial pneumonia Active Finding 09/04/[address] [facility] [address] [facility] [place] Medications Medication Details Route Status Patient Ordering Order Source Instructions Provider Date Amlodipine DAILY Active [facility] 2018 [facility] [place] Hydrocodone THREE TIMES Active [facility] Bit/Acetaminophe A DAY PRN 2018 [facility] - n For Pain [place] Levofloxacin DAILY Active Quinn [facility] 2017 [facility] - [place] Tramadol Hcl TWICE DAILY Active [facility] PRN For 2017 [facility] - Pain [place] Lisinopril DAILY Active [facility] 2017 [facility] - [place] Atorvastatin AT BEDTIME Active [facility] Calcium 2017 [facility] - [place] Ciprofloxacin TWICE DAILY Active [facility] Hcl 2017 [facility] - [place] Neomycin/Polymyx TWICE DAILY AURICULAR Active [facility] 08/06/ [facility] St. in B Sulf/Hc (OTIC) 2017 [facility] [place] Insulin DAILY PRN Active St. Glargine,Hum.Rec For glucose 2017 [facility] - .Anlog [place] Cyclosporine DAILY PRN OPHTHALMIC Active [facility] St[facility] For 2017 [facility] - Abdominal [place] Cramps Prednisolone DAILY PRN OPHTHALMIC Active St[facility] Acetate For Pain 2017 [facility] - [place] Metoprolol TWICE DAILY Active Prezas [facility] St[facility] Tartrate 2017 [facility] - [place] Gabapentin TWICE DAILY Active [facility] 2017 [facility] [place] Hydrocodone THREE TIMES Active [facility] Bit/Acetaminophe A DAY PRN 2017 [facility] For [facility] [place] Insulin SEE COMMENT Active St. Glargine,Hum.Rec 2017 [facility] - .Anlog [place] Esomeprazole Mag DAILY Active [facility] St[facility] Trihydrate 2017 [facility] - [place] Fenofibrate DAILY Active 10[facility]14/ [facility] [place] Levothyroxine DAILY AT Active 10/14/ [facility]600 2017 [facility] [place] Losartan/Hydroch DAILY Active [facility] lorothiazide 2017 [facility] [place] Prednisol Acet NEEDED Active St. 1% Opth 2017 [facility] - [place] Alprazolam DAILY PRN Active [facility] For Anxiety 2017 [facility] [place] Ondansetron Q6H PRN For Active [facility] Nausea / 2017 [facility] - Vomiting [place] Metoclopramide Q6H Active [facility] Hcl 2016 [facility] [place] Hydrocodone WITH MEALS Active St. Bit/Acetaminophe NEEDED 2016 [facility] - n PRN For [place] Pain Lisinopril/[place] TWICE DAILY Active St. chlorothiazide 2013 [facility] - [place] Meloxicam DAILY Active St. 2013 [facility] - [place] Metoclopramide BEFORE Active St. MEALS AND 2013 [facility] - AT BEDTIME [place] Allergies, Adverse Reactions, Alerts Substance Category Reaction Severity Reaction Status Date Comments Source type Reported No Known NONE Allergy to Active [facility] St[facility] Drug Substance 8 [facility] - Allergies [place] Immunizations Immunization Date Given Site Status Last Comments Source Updated Influenza Adult 07/23/2013 completed [facility] Vaccine - [place] Results Order Name Results Value Reference Date Interpretation Comments Source Range Stomach Stomach Patient Name: GIGI CONROY 05/24 - [facility] emptying emptying [place] - [facility] : 1975; Age: 42 years Female MR: [id number] Read by: Melissa Mott MD Dictated Date/time: 05/24/18 16:00 Study: Stomach emptying [place] 05/24/2018 10:11 AM CDT Electronically Signed by: [...] gastric emptying suggestive of mild gastroparesis. SL: [id number] Laboratory Urine Random 545 mg/dl 09/04 [facility] [address] Studies Total [facility] - Protein [place] Laboratory Urine 8.35 09/04 [facility] [address] Studies Protein/Crea [facility] - tinine Ratio [place] Laboratory Urine 65.3 mg/dL 09/04 [facility] [address] Studies Creatinine [facility] - [place] Laboratory Total 0.6 mg/dL 0.3 - 1.2 09/04 [facility] [address] Studies Bilirubin [facility] - [place] Laboratory Sodium Level 140 mEq/L 135 - 145 09/04 [facility] [address] Studies [facility] - [place] Laboratory Serum Total 3.7 g/dL 6.0 - 8.3 09/04 [facility] [address] Studies Protein [facility] - [place] Laboratory Potassium 3.6 mEq/L 3.6 - 5.0 09/04 [facility] [address] Studies Level [facility] - [place] Laboratory Phosphorus 3.2 mg/dL 2.5 - 4.3 09/04 [facility] [address] Studies Level [facility] - [place] Laboratory Glucose 104 mg/dL 65 - 120 09/04 [facility] [address] Studies Level [facility] - [place] Laboratory Globulin 2.6 g/dL 2.3 - 3.5 09/04 [facility] [address] Studies /2017 [facility] - [place] Laboratory Estimat 33 mL/min 90 09/04 [facility] [address] Studies Glomerular [facility] - Filtration [place] Rate Laboratory Creatinine 1.72 mg/dL 0.44 - 09/04 [facility] [address] Studies 1.00 [facility] - [place] Laboratory Chloride 117 mEq/L 101 - 111 09/04 [facility] [address] Studies Level /2017 [facility] - [place] Laboratory Carbon 19 mEq/L 21 - 31 09/04 [facility] [address] Studies Dioxide /2017 [facility] - Level [place] Laboratory Calcium 7.3 mg/dL 8.5 - 10.5 09/04 [facility] [address] Studies Level /2017 [facility] [place] Laboratory Blood Urea 13 mg/dL 6 - 20 09/04 [facility]. Studies Nitrogen /2017 [facility] [place] Laboratory Aspartate 16 IU/L 10 - 42 09/04 [facility]. Studies Amino Transf /2017 [facility] - (AST/SGOT) [place] Laboratory Alkaline 73 IU/L 42 - 121 09/04 [facility]. Studies Phosphatase /2017 [facility] [place] Laboratory Albumin/Glob 0.4 1.1 - 1.8 09/04 [facility]. Studies ulin Ratio /2017 [facility] [place] Laboratory Albumin 1.1 g/dL 3.2 - 5.5 09/04 [facility] [address] Studies /2017 [facility] [place] Laboratory Alanine 12 IU/L 10 - 60 09/04 [facility]. Studies Aminotransfe /2017 [facility] [place] (ALT/SGPT) Laboratory Parathyroid 64 pg/mL 12 - 88 09/03 [facility]. Studies Hormone /2017 [facility] - (Intact) [place] Laboratory Hemoglobin 8.6 % 4 - 6.0 09/03 [facility]. Studies A1c /2017 [facility] [place] Laboratory Thyroid 0.75 0.34 - 09/03 [facility]. Studies Stimulating uIU/mL 5.60 [facility] - Hormone [place] (TSH) Laboratory White Blood 9.3 K/uL 4.3 - 10.9 09/03 [facility]. Studies Count /2017 [facility] [place] Laboratory Red Cell 13.7 % 12.1 - 09/03 [facility]. Studies Distribution 15.2 [facility] - Width [place] Laboratory Red Blood 4.16 M/uL 3.86 - 09/03 [facility]. Studies Count 4.86 [facility] [place] Laboratory Platelet 233 K/uL 152 - 406 09/03 [facility]. Studies Count /2017 [facility] [place] Laboratory Neutrophils 71.9 % 41.7 - 09/03 [facility] [address] Studies % 73.7 /2017 [facility] [place] Laboratory Monocytes % 9.6 % 3.3 - 12.3 09/03 [facility] [address] Studies /2017 [facility] [place] Laboratory Mean 9.7 fL 7.6 - 11.3 09/03 [facility] [address] Studies Platelet /2017 [facility] - Volume [place] Laboratory Mean 90.1 fL 80 - 100 09/03 [facility] [address] Studies Corpuscular /2017 [facility] - Volume [place] Laboratory Mean 33.3 g/dL 32.0 - 09/03 [facility] [address] Studies Corpuscular 36.0 [facility] - Hemoglobin [place] Concent Laboratory Mean 30.0 pg 27.0 - 09/03 [facility] [address] Studies Corpuscular 35.0 [facility] - Hemoglobin [place] Laboratory Lymphocytes 16.6 % 15.3 - 09/03 [facility] [address] Studies % 44.8 /2017 [facility] [place] Laboratory Hemoglobin 12.5 g/dL 12.0 - 09/03 [facility] [address] Studies 15.0 /2017 [facility] [place] Laboratory Hematocrit 37.5 % 36.0 - 09/03 [facility] [address] Studies 45.0 [facility] - [place] Laboratory Eosinophils 1.4 % 0 - 4.4 09/03 [facility] [address] Studies % /2017 [facility] [place] Laboratory Basophils % 0.5 % 0 - 1.3 09/03 [facility] [address] Studies /2017 [facility] - [place] Laboratory Absolute 6.7 K/uL 1.8 - 8.0 09/03 [facility] [address] Studies Neutrophil [facility] - [place] Laboratory Absolute 0.9 K/uL 0.1 - 1.3 09/03 [facility] [address] Studies Monocytes [facility] - (CBC) [place] Laboratory Absolute 1.6 K/uL 0.7 - 4.9 09/03 [facility] [address] Studies Lymphocytes [facility] - (CBC) [place] Laboratory Absolute 0.1 K/uL 0 - 0.5 09/03 [facility] [address] Studies Eosinophils [facility] - (CBC) [place] Laboratory Absolute 0.0 K/uL 0 - 0.5 09/03 [facility] [address] Studies Basophils [facility] - (CBC) [place] Laboratory Urine 1.020 09/02 [facility] [address] Studies Specific /2017 [facility] - [place] [address] [place] Laboratory Urine Urine 09/02 [facility]. Studies [facility] - Test Test [place] Laboratory Urine pH 6.0 09/02 [facility] [address] Studies /2017 [facility] - [place] Laboratory Urine Total Urine 09/02 [facility]. Studies Protein Total /2017 [facility] - Protein [place] Laboratory Urine Urine 09/02 . Studies Nitrite Nitrite /2017 [facility] [place] Laboratory Urine Urine 09/02 [facility]. Studies Leukocyte Leukocyte /2017 [facility] - Esterase Esterase [place] Laboratory Urine Urine 09/02 . Studies Ketones Ketones /2017 [facility] [place] Laboratory Urine Urine 09/02 [facility]. Studies Glucose Glucose /2017 [facility] [place] Laboratory Urine Blood Urine 09/02 [facility]. Studies Blood /2017 [facility] [place] Laboratory Procalcitoni 0.77 ng/mL 09/01 [facility]. Studies n /2017 [facility] [place] Laboratory Segmented 81 % 40 - 80 09/01 [facility]. Studies Neutrophils /2017 [facility] [place] Laboratory Reactive 2 % 09/01 [facility]. Studies Lymphocytes /2017 [facility] [place] Laboratory Monocytes 6 % 0 - 10 09/01 St. Studies /2017 [facility] [place] Laboratory Lymphocytes 8 % 15 - 42 09/01 [facility]. Studies /2017 [facility] [place] Laboratory Blood Blood 09/01 [facility] Studies Morphology Morphology /2017 [facility] - Comment Comment [place] Laboratory Band 3 % 0 - 1 09/01 [facility]. Studies Neutrophils /2017 [facility] [place] Laboratory Direct 0.2 mg/dL 0 - 0.2 09/01 [facility]. Studies Bilirubin /2017 [facility] [place] Laboratory Lipase 12 U/L 22 - 51 09/01 St. Studies /2017 [facility] [place] Laboratory Triglyceride 154 mg/dL 35 - 160 08/06 [facility] [address] Studies s Level /2016 [facility] [place] Laboratory LDL 173 08/06 [facility]. Studies Cholesterol, /2016 [facility] - Calculated [place] Laboratory HDL 41 mg/dL 29 - 89 08/06 [facility] [address] Studies Cholesterol /2016 [facility] [place] Laboratory Cholesterol/ 5.98 08/06 [facility]. Studies HDL Ratio /2016 [facility] [place] Laboratory Cholesterol 245 mg/dL 08/06 [facility]. Studies Level /2016 [facility] [place] Laboratory Creatine 0.6 ng/ml 0.3 - 4.0 08/[address] Studies Kinase MB [facility] - [place] Laboratory Creatine 29 IU/L 22 - 269 08/05 [facility] [address] Studies Kinase [facility] - [place] Laboratory Troponin I null 08/05 [facility] [address] Studies [facility] - [place] Laboratory B-Type 137 pg/ml 08/05 [facility] [address] Studies Natriuretic [facility] - Peptide [place] Laboratory Magnesium 1.7 mg/dL 1.8 - 2.5 08/05 [facility] [address] Studies Level /2016 [facility] - [place] Laboratory Rapid null 08/05 [facility] [address] Studies Troponin I [facility] - [place] Laboratory Prothrombin 10.4 9.5 - 12.5 08/05 [facility] [address] Studies Time SECONDS [facility] - [place] Laboratory INR 0.88 08/05 [facility] [address] Studies Internationa [facility] - l Normalized [place] Ratio Laboratory Activated 29.4 24.3 - 08/05 [facility] [address] Studies Partial SECONDS 36.9 [facility] - Thromboplast [place] Time Vital Signs Vital Sign Value Date Comments Source Heart Rate 65 09/04/2017 [facility] [place] Systolic (mm Hg) 126 [facility] [place] Diastolic (mm Hg) 61 09/04/[facility] Temperature Oral (F) 96.8 F 09/04/[address] [facility] [address] Tyrese - [place] Respitory Rate 16 [facility]/04[facility]2017 [facility] Height 64 09/03/2017 [facility] [place] Weight 191 09/03/2017 [facility] Encounters Location Location Encounter Encounter Reason Attending ADM DC Status Source Details Type Number For Provider Date Date Visit [facility] St. Discharged [id number] 08/06 08/07 [facility] [place] [facility] St. Discharged [id number] 09/01 09/[address] [facility] [place] Procedures Procedure Code Date Perfomer Comments Source Occult Blood [facility] 8 - [place] Thorax Wo Con [id number] [facility] 8 - [place] Anaerobic Blood [id number] [facility] Culture 8 - [place] Aerobic Blood [id number] [facility] Culture 8 - [place] Chest Single [id number] [facility] View 8 - [place] Influenza Type B [facility] Antigen Screen 8 - [place] Influenza Type A [facility] Antigen Screen 8 - [place] PLAIN [id number] [facility] RADIOGRAPHY OF 7 - [place] MULT COR ART USING OTH CONTRAST Chest Single [id number] [facility] View 7 - [place]
--- NOTE | 2018-11-22 16:10 | RAD REPORT ---
EXAM DESCRIPTION: CT - Ct Stroke Brain Wo Cont - 11/22/2018 4:03 pm CLINICAL HISTORY: Mental status change;Weakness Headache, CVA symptomology COMPARISON: Head Brain Wo Cont dated 07/03/2018; Ct Stroke Brain Wo Cont dated 03/14/2017 TECHNIQUE: All CT scans are performed using dose optimization technique as appropriate and may inclu de automated exposure control or mA/KV adjustment according to patient size. FINDINGS: No intracranial hemorrhage, hydrocephalus or extra-axial fluid collection.Mild generalized brain atrophy is present with mild periventricular and deep white matter chronic microvascular ische sunshine changes.No areas of brain edema or evidence of midline shift. The paranasal sinuses and mastoids are clear. The calvarium is intact. IMPRESSION: No acute intracranial abnormality. If there is continued clinical concern for CVA, MR i maging of the brain would be recommended. The findings were discussed with ULYSSES Duncan in the ER on 11/22/2018 at 3:53 p.m. by telephone.
[2018-11-22 16:29] LABS: ALT/SGPT 13 U/L (12-78); AST/SGOT 17 U/L (15-37); Albumin 1.9 g/dL (3.4-5.0); Alkaline Phosphatase 64 U/L (45-117); BUN Blood Urea Nitrogen 35 mg/dL (7-18); Bicarbonate 16 mmol/L (21-32); Bilirubin Direct < 0.1 mg/dL (0-0.2); Bilirubin Total 0.3 mg/dL (0.2-1.0); CKMB Creatine Kinase MB < 1.0 ng/mL (0.3-3.6); Creatine Phosphokinase 26 U/L (26-192); Glucose Level 190 mg/dL (74-106); Lipase 90 U/L (73-393); Magnesium 1.8 mg/dL (1.8-2.4); Potassium 3.9 mmol/L (3.5-5.1); Protein, Total 5.8 g/dL (6.4-8.2); Sodium Level 137 mmol/L (136-145); Troponin (Emerg Dept Use Only) < 0.02 ng/mL (0.0-0.045)
[2018-11-22 17:33] LABS: Absolute Lymphocytes (CBC) 1.9 K/uL (0.7-4.9); Absolute Monocytes 0.5 K/uL (0.1-1.3); Absolute Neutrophil 15.7 K/uL (1.8-8.0); Basophils % 0.6 % (0-1.3); Eosinophils % 0.2 % (0-4.4); Hematocrit 38.8 % (36.0-45.0); Lymphocytes % 10.1 % (15.3-44.8); MPV 7.9 fL (7.6-11.3); RBC Red Blood Cell Count 4.31 M/uL (3.86-4.86)
[2018-11-22 17:39] LABS: Protime INR 0.9
--- NOTE | 2018-11-22 17:53 | EDPHYS ---
Physician Documentation [facility] Name: Archana Woo Age: 43 yrs Sex: Female : 1975 Arrival Date: 11/22/2018 Time: 15:29 Bed 28 Private MD: ED Physician Russ Canales HPI: 11/22 16:31 This 43 yrs old Female presents to ER via EMS with complaints of Altered rn Mental Status, syncope. 16:32 The patient has experienced syncope. Onset: The symptoms/episode began/occurred just rn prior to arrival. Duration: This was a single episode. Associated injury: The patient did not suffer any apparent associated injury. Current symptoms: decreased level of consciousness. The patient has experienced similar episodes in the past. Daughter reports was outside, not overdoing anything, patient stated felt lightheaded and like BP was dropping, daughter wheeled her inside, but passed out on way in, daughter states lasted almost 10 min, barely breathing to not breathing, turned dark color, then improved slightly when laid her down. Glucose was 200. No seizure like activity. Patient reports chest pain and generalized weakness. No slurred speech, no focal weakness, no paresthesias, states was fine prior to episode, and slowly improving. . 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 - Social history:: Smoking status: Patient uses tobacco products, denies chronic smoking, but will smoke occasionally. - Ebola Screening: : Patient negative for fever greater than or equal to 101.5 degrees Fahrenheit, and additional compatible Ebola Virus Disease symptoms Patient denies exposure to infectious person Patient denies travel to an Ebola-affected area in the 21 days before illness onset. - Family history:: not pertinent. - Hospitalizations: : No recent hospitalization is reported. ROS: 16:32 Constitutional: Negative for fever, chills, and weight loss, Eyes: Negative for injury, rn pain, redness, and discharge, Neck: Negative for injury, pain, and swelling, Cardiovascular: Negative for palpitations, and edema, Respiratory: Negative for shortness of breath, cough, wheezing, and pleuritic chest pain, Abdomen/GI: Negative for abdominal pain, nausea, vomiting, diarrhea, and constipation, MS/Extremity: Negative for injury and deformity, Skin: Negative for injury, rash, and discoloration, Neuro: + generalized weakness, negative for seizure Exam: 16:32 Constitutional: Somnolent but awakens, yells with IV stick Head/Face: Normocephalic, rn atraumatic. ENT: dry MM, no stridor Neck: No masses palpated, and no cervical lymphadenopathy. Supple, full range of motion without nuchal rigidity, or vertebral point tenderness. No Meningismus. Cardiovascular: Regular rate and rhythm, No pulse deficits. Respiratory: Lungs have equal breath sounds bilaterally, clear to auscultation. No increased work of breathing, no retractions or nasal flaring. Abdomen/GI: soft, non-tender Skin: Warm, dry and no evidence of cellulitis. MS/ Extremity: Pulses equal, no cyanosis. Neurovascular intact. Equal circumference Neuro: Somnolent, moves all 4 extremities, 4-/5 strength throughout, sensation to soft touch intact, normal coordination, slow but non-slurred speech. Vital Signs: 15:27 BP 128 / 73 LA Supine; Pulse 76; Resp 14 S; Temp 97.5(O); Pulse Ox 100% on R/A; rv 16:00 BP 145 / 100 LA; Pulse 83; Resp 18 S; Pulse Ox 100% on R/A; rv 20:11 BP 126 / 81 RA Supine; Pulse 87; Resp 18 S; Pulse Ox 98% on R/A; rr5 21:16 BP 126 / 75 RA; Pulse 82; Resp 18 S; Pulse Ox 100% on R/A; rv NIH Stroke Scale Scores: 16:22 NIHSS Score: 4 rv MDM: 15:35 Patient medically screened. rn 16:17 ED course: Spoke at length with patient and family, did full neuro exam twice to be rn sure, no focal deficits, patient is weak all over, is 4/5 strength in all 4 ext, sensation intact, sleepy but answering questions, no slurred speech. CT head without acute finding. Unclear what happened, daughter states maybe stopped breathing and turned purple prior to waking up. Family in room states she has passed out numerous times, BP drops, and this seems more like one of those episodes and does not show similarities to previous strokes. After long discussion with family, joint decision made that not enough evidence on imaging or exam to warrant TPA risk. . 17:51 Differential Diagnosis: cardiac arrhythmia, cerebrovascular accident, emotional rn response, idiopathic syncope, transient ischemic attack, vasovagal episode. Data reviewed: vital signs, nurses notes, lab test result(s), EKG, radiologic studies, CT scan, and as a result, I will admit patient. Counseling: I had a detailed discussion with the patient and/or guardian regarding: the historical points, exam findings, and any diagnostic results supporting the discharge/admit diagnosis, lab results, radiology results, the need for further work-up and treatment in the hospital. Response to treatment: the patient's symptoms have markedly improved after treatment, and as a result, I will admit patient. Admission orders: after a detailed discussion of the patient's condition and case, the admit orders are written by me. ED course: Pt improved, more alert, still generalized weakness, now states due to gastroparesis, unable to keep foods down, dehydrated, and feels better with fluids. CT head negative, trop normal, ecg without ischemia. . 11/22 15:58 Order name: Basic Metabolic Panel; Complete Time: 16:44 rn 11/22 15:58 Order name: CBC with Diff; Complete Time: :11/22 15:58 Order name: Ckmb; Complete Time: 16:44 11/22 15:58 Order name: CPK; Complete Time: 16:44 11/22 15:58 Order name: Hepatic Function; Complete Time: 16:44 11/22 15:58 Order name: Lipase; Complete Time: 16:44 rn 11/22 15:58 Order name: Magnesium; Complete Time: 16:44 rn 11/22 15:58 Order name: Protime (+inr); Complete Time: :11/22 15:58 Order name: Ptt, Activated; Complete Time: :11/22 15:58 Order name: Troponin (emerg Dept Use Only); Complete Time: 16:44 rn 11/22 17:38 Order name: CBC Smear Scan; Complete Time: 07:31 EDMS 11/22 17:47 Order name: Procalcitonin; Complete Time: 07:31 rn 11/22 17:47 Order name: Blood Culture Adult (2) rn 11/22 17:47 Order name: Urine Culture rn 11/22 15:58 Order name: CT Stroke Brain w/o Contrast; Complete Time: 16:17 iw 11/22 15:58 Order name: EKG; Complete Time: 15:59 rn 11/22 15:58 Order name: Cardiac monitoring; Complete Time: 16:11 rn 11/22 15:58 Order name: EKG - Nurse/Tech; Complete Time: 16:11 rn 11/22 15:58 Order name: IV Saline Lock; Complete Time: 16:11 rn 11/22 15:58 Order name: Labs collected and sent; Complete Time: 16:12 rn 11/22 15:58 Order name: NPO; Complete Time: 16:12 rn 11/22 15:58 Order name: O2 Per Protocol; Complete Time: 16:12 rn 11/22 16:45 Order name: Brain Wo Cont MRI; Complete Time: 07:31 rn 11/22 17:46 Order name: XRAY Chest (1 view); Complete Time: 07:31 rn 11/22 18:45 Order name: Glucose, Ancillary Testing; Complete Time: 07:31 EDMS 11/22 19:56 Order name: Urine Dipstick--Ancillary (enter results) ny5 11/22 19:56 Order name: Urine --Ancillary (enter results) [facility] 11/22 20:04 Order name: Urine --Ancillary; Complete Time: 07:31 EDMS 11/22 20:04 Order name: Urine Dipstick-Ancillary; Complete Time: 07:31 EDMS 11/22 15:58 Order name: O2 Sat Monitoring; Complete Time: 16:12 rn Administered Medications: 17:50 Drug: NS 0.9% 500 ml Route: IV; Rate: bolus; Site: right forearm; rv 19:59 Follow up: IV Status: Completed infusion rr5 Point of Care Testing: Blood Glucose: 15:30 Blood Glucose: 218 mg/dL; rv Ranges: Critical Glucose Levels:Adult <50 mg/dl or >400 mg/dl <40 mg/dl or >180 mg/dl Disposition: 11/22/18 17:53 Hospitalization ordered by Yvette Sims for Inpatient Admission. Preliminary diagnosis are Syncope and collapse, Acidosis, Dehydration. - Bed requested for Telemetry/MedSurg (Inpatient). - Status is Inpatient Admission. rv - Condition is Stable. - Problem is new. - Symptoms have improved. UTI on Admission? No NIH Stroke Scale - NIH Stroke Score Date: 11/22/2018 Time: 16:22 Total Score = 4 1a. Level of Consciousness (LOC) - 0(Alert) 1b. Level of Consciousness (LOC) (Year \T\ Age) - 0(Both) 1c. LOC Commands (Open \T\ Closes Eyes/Flavoring Maker) - 0(Both) 2. Best Gaze (Lateral Gaze Paresis) - 0(Normal) 3. Visual Field Loss - 0(No visual loss) 4. Facial Palsy - 0(Normal) 5a. Left Arm: Motor (10-second hold) - 1(Drift) 5b. Right Arm: Motor (10-second hold) - 1(Drift) 6a. Left Leg: Motor (5-second hold - always test supine) - 1(Drift) 6b. Right Leg: Motor (5-second hold - always test supine) - 1(Drift) 7. Limb Ataxia (finger/nose \T\ heel/shetty - test with eyes open) - 0(Absent) 8. Sensory Loss (pinprick arms/legs/face) - 0(Normal) 9. Best Language: Aphasia (description/naming/reading) - 0(No aphasia) 10. Dysarthria (speech clarity - read or repeat words) - 0(Normal) 11. Extinction and Inattention (visual/tactile/auditory/spatial/personal) - 0(No abnormality) Initials: rv Signatures: Dispatcher [employer] EDMS Russ Canales MD MD rn Fitzgerald, Diane, RN RN df Manoj Abreu RN RN rv Mariann Arteaga ar5 Baldomero Valverde RN rr5 Corrections: (The following items were deleted from the chart) 20:25 17:53 Hospitalization Ordered by Yvette Sims MD for Inpatient Admission. df Preliminary diagnosis is Syncope and collapse; Acidosis; Dehydration. Bed requested for Telemetry/MedSurg (Inpatient). Status is Inpatient Admission. Condition is Stable. Problem is new. Symptoms have improved. UTI on Admission? No. rn 21:00 20:25 11/22/2018 17:53 Hospitalization Ordered by Yvette Sims MD for Inpatient ar5 Admission. Preliminary diagnosis is Syncope and collapse; Acidosis; Dehydration. Bed requested for Telemetry/MedSurg (Inpatient). Status is Inpatient Admission. Condition is Stable. Problem is new. Symptoms have improved. UTI on Admission? No. df 21:19 21:00 11/22/2018 17:53 Hospitalization Ordered by Yvette Sims MD for Inpatient rv Admission. Preliminary diagnosis is Syncope and collapse; Acidosis; Dehydration. Bed requested for Telemetry/MedSurg (Inpatient). Status is Inpatient Admission. Condition is Stable. Problem is new. Symptoms have improved. UTI on Admission? No. ar5
--- NOTE | 2018-11-22 17:53 | ER ---
Nurse's Notes [facility] Name: Archana Woo Age: 43 yrs Sex: Female : 1975 Arrival Date: 11/22/2018 Time: 15:29 Bed 28 Private MD: Diagnosis: Syncope and collapse;Acidosis;Dehydration Presentation: 11/22 15:33 Presenting complaint: EMS states: FOUND THE PATIENT ON THE FLOOR. CAN'T REMEMBER WHAT rv HAPPENED. FEEL WEAK AFTER WAKING UP. Transition of care: patient was not received from another setting of care. Onset of symptoms was November 22, 2018 at 15:00. Risk Assessment: Do you want to hurt yourself or someone else? Patient reports no desire to harm self or others. Initial Sepsis Screen: Does the patient meet any 2 criteria? No. Patient's initial sepsis screen is negative. Does the patient have a suspected source of infection? No. Patient's initial sepsis screen is negative. Care prior to arrival: None. 15:33 Method Of Arrival: EMS: [facility] rv 15:33 Acuity: TARUN 3 rv 16:18 No acute neurological deficit is noted. The patients blood glucose was checked prior to rv arriving to the hospital and was found to be hyperglycemic. Triage Assessment: 16:12 The onset of the patients symptoms was November 22, 2018 at 15:00. General: Appears in no rv apparent distress. Behavior is drowsy. Pain: Denies pain. EENT: No signs and/or symptoms were reported regarding the EENT system. Neuro: Reports weakness in GENERALIZED. Neuro: Level of Consciousness is awake, alert, obeys commands, Oriented to person, place, situation. Cardiovascular: Capillary refill < 3 seconds Rhythm is regular. Respiratory: Airway is patent. GI: No signs and/or symptoms were reported involving the gastrointestinal system. : No signs and/or symptoms were reported regarding the genitourinary system. Derm: Skin is intact. Musculoskeletal: Reports weakness in right arm, left arm, right leg and left leg. SCHEDULING SPECIALIST: 15:27 LMP 10/2018 rv Historical: - Allergies: 15:39 No Known Allergies; rv - Home Meds: 15:39 atorvastatin Oral [Active]; Hydrocodone-Acetaminophen Oral [Active]; Toujeo SoloStar rv 300 unit/mL (1.5 mL) subcutaneous inpn [Active]; - PMHx: 15:39 BLIND; CVA; Depression; Diabetes - NIDDM; GERD; Hyperlipidemia; Hypertension; rv neuropathy; THYROID CANCER; TIA; - Immunization history:: Adult Immunizations up to date. - Social history:: Smoking status: Patient uses tobacco products, denies chronic smoking, but will smoke occasionally. - Ebola Screening: : Patient negative for fever greater than or equal to 101.5 degrees Fahrenheit, and additional compatible Ebola Virus Disease symptoms Patient denies exposure to infectious person Patient denies travel to an Ebola-affected area in the 21 days before illness onset. - Family history:: not pertinent. - Hospitalizations: : No recent hospitalization is reported. Screenin:21 Abuse screen: Denies threats or abuse. Denies injuries from another. Nutritional rv screening: No deficits noted. Tuberculosis screening: No symptoms or risk factors identified. Fall Risk Fall in past 12 months (25 points). Secondary diagnosis (15 points) CVA, No IV (0 pts). Ambulatory Aid- None/Bed Rest/Nurse Assist (0 pts). Gait- Weak (10 pts.). Mental Status- Oriented to own ability (0 pts). Total Lr Fall Scale indicates High Risk Score (45 or more points). Fall prevention measures have been instituted. Side Rails Up X 2 Placed Close to Nursing Station Frequent Obs/Assessments Occuring Family Present and informed to notify staff if the need to leave the bedside As available patient and family educated on Fall Prevention Program and Strategies. Assessment: 15:35 Reassessment: Dr. Canales at bedside to assess patient. iw 15:43 Reassessment: pt transported to CT via stretcher with ARMOND Frank. iw 16:15 VAN Scoring: Arm Drift: Minor drift Visual Disturbance: No visual disturbance noted. rv Aphasia: No aphasia noted. Neglect: No neglect noted. The patient has not been NPO before screening. The patient is alert, and able to follow commands. The patient does not exhibit slurred or garbled speech. The patient is not exhibiting difficulty speaking. The patient does not exhibit difficulty understanding words. The patient is able to swallow own secretions with no drooling or need for suction. Patient tolerated one teaspoon of water. No drooling, immediate coughing, gurgling, or clearing of the throat was noted. The patient tolerated 90mL of water. No drooling, immediate coughing, gurgling, or clearing of the throat was noted. The patient passed the bedside swallow screening. Oral medications may be given as ordered. Contact Physician for further diet orders. Provider notified of bedside swallow screening results: Russ Canales MD. 18:00 Reassessment: Patient appears in no apparent distress at this time. Patient and/or rv family updated on plan of care and expected duration. Pain level reassessed. Patient is alert, oriented x 3, equal unlabored respirations, skin warm/dry/pink. Vital Signs: 15:27 BP 128 / 73 LA Supine; Pulse 76; Resp 14 S; Temp 97.5(O); Pulse Ox 100% on R/A; rv 16:00 BP 145 / 100 LA; Pulse 83; Resp 18 S; Pulse Ox 100% on R/A; rv 20:11 BP 126 / 81 RA Supine; Pulse 87; Resp 18 S; Pulse Ox 98% on R/A; rr5 21:16 BP 126 / 75 RA; Pulse 82; Resp 18 S; Pulse Ox 100% on R/A; rv NIH Stroke Scale Scores: 16:22 NIHSS Score: 4 rv ED Course: 15:29 Patient arrived in ED. rv 15:32 Manoj Abreu, ARMOND is Primary Nurse. rv 15:35 Russ Canales MD is Attending Physician. rn 15:37 Triage completed. rv 15:41 EKG done, by echocardiograph tech. reviewed by Russ Canales MD. sm3 16:03 CT Stroke Brain w/o Contrast In Process Unspecified. EDMS 16:18 Arm band placed on right wrist. EKG completed in triage. Results shown to MD. rv 16:19 Patient has correct armband on for positive identification. Bed in low position. Call rv light in reach. Side rails up X 1. supervisor heading on. Pulse ox on. NIBP on. 16:24 Maintain EMS IV. Dressing intact. Site clean \T\ dry. Gauge \T\ site: G20 RIGHT ARM. rv 17:52 Yvette Sims MD is Hospitalizing Provider. rn 18:33 Brain Wo Cont MRI In Process Unspecified. EDMS 18:40 XRAY Chest (1 view) In Process Unspecified. EDMS 18:40 First set of blood cultures drawn. rr5 20:11 Second set of blood cultures drawn by me. rr5 21:18 No provider procedures requiring assistance completed. Patient admitted, IV remains in rv place. Administered Medications: 17:50 Drug: NS 0.9% 500 ml Route: IV; Rate: bolus; Site: right forearm; rv 19:59 Follow up: IV Status: Completed infusion rr5 Point of Care Testing: Blood Glucose: 15:30 Blood Glucose: 218 mg/dL; rv Ranges: Outcome: 17:53 Decision to Hospitalize by Provider. rn 21:18 Admitted to Tele accompanied by tech, via stretcher, room 417, with chart, Report rv called to MISAEL LEAHY 21:18 Condition: good 21:18 Instructed on the need for admit, Demonstrated understanding of instructions. 21:19 Patient left the ED. rv NIH Stroke Scale - NIH Stroke Score Date: 11/22/2018 Time: 16:22 Total Score = 4 1a. Level of Consciousness (LOC) - 0(Alert) 1b. Level of Consciousness (LOC) (Year \T\ Age) - 0(Both) 1c. LOC Commands (Open \T\ Closes Eyes/Central Office Worker) - 0(Both) 2. Best Gaze (Lateral Gaze Paresis) - 0(Normal) 3. Visual Field Loss - 0(No visual loss) 4. Facial Palsy - 0(Normal) 5a. Left Arm: Motor (10-second hold) - 1(Drift) 5b. Right Arm: Motor (10-second hold) - 1(Drift) 6a. Left Leg: Motor (5-second hold - always test supine) - 1(Drift) 6b. Right Leg: Motor (5-second hold - always test supine) - 1(Drift) 7. Limb Ataxia (finger/nose \T\ heel/shetty - test with eyes open) - 0(Absent) 8. Sensory Loss (pinprick arms/legs/face) - 0(Normal) 9. Best Language: Aphasia (description/naming/reading) - 0(No aphasia) 10. Dysarthria (speech clarity - read or repeat words) - 0(Normal) 11. Extinction and Inattention (visual/tactile/auditory/spatial/personal) - 0(No abnormality) Initials: rv Signatures: Dispatcher [employer] Margarita Lorenz RN RN Russ Canales MD MD rn Montes, Shakira [facility] Brady, Manoj, RN RN rv Valverde, Baldomero, RN RN rr5 Corrections: (The following items were deleted from the chart) 20:13 19:50 BP 154 / 85; Pulse 69bpm; Resp 17bpm; Pulse Ox 99%; rr5 rr5
[2018-11-22 17:58] LABS: Blood Morphology Comment NOT SEEN (NOT SEEN); Platelet Estimate ADEQ; Urine White Blood Cell Casts OK
[2018-11-22] MEDS ORDERED: NA CHLORIDE 0.9% 500 ML ONE (18:04)
--- NOTE | 2018-11-22 19:38 | RAD REPORT ---
EXAM DESCRIPTION: MRI - Brain Wo Cont - 11/22/2018 6:42 pm CLINICAL HISTORY: Syncope;Weakness Headache, drowsiness COMPARISON: Ct Stroke Brain Wo Cont dated 11/22/2018; Head Brain Wo Cont dated 07/03/2018 TECHNIQUE: Multi-sequence, multiplanar MR imaging of the brain was performed without contrast. FINDINGS: No intracranial hemorrhage, hydrocephalus or extra-axial fluid collections.Moderate T2/FLA IR hyperintensities in the periventricular region is seen. No edema or shift of midline structures. N o findings to suspect brain mass. DWI is negative for acute CVA. Midline structures are normally formed. Mastoid air cells and paranasal sinuses are clear. IMPRESSION: Negative for acute CVA or other acute intracranial abnormality. Periventricular areas of T2/FLAIR hyperintensity may be related to underlying demyelinating condition or chronic microvascular ischemia.
--- NOTE | 2018-11-22 19:49 | RAD REPORT ---
EXAM DESCRIPTION: RAD - Chest Single View - 11/22/2018 6:40 pm CLINICAL HISTORY: syncope;Chest pain Chest pain. COMPARISON: Chest Single View dated 08/23/2018; Chest Single View dated 07/03/2018; Chest Single View dated 06/27/2018; Chest Single View dated 02/01/2018 FINDINGS: Portable technique limits examination quality. The lungs are grossly clear. The heart is normal in size. No displaced fractures. IMPRESSION: No acute intrathoracic process suspected.
[2018-11-22 20:03] LABS: Urine Blood 1+ (NEG); Urine Glucose 1+ (NEG); Urine Protein 3+ (NEG)
[2018-11-22] MEDS ORDERED: D5W 1,000 ML with NA BICARB 8.4% 100 MEQ IV SCH ×2 (20:48)
[2018-11-22] MEDS ORDERED: D5W 1,000 ML IV ONE (23:45)
[2018-11-22] MEDS: ONDANSETRON 4 MG/2 ML VIAL IV PRN (23:48)
[2018-11-22] MEDS: ACETAMINOPHEN 500 MG TAB PO PRN (23:49)
[2018-11-22] MEDS ORDERED: SODIUM BICARB 50 MEQ/50ML VIAL ONE (23:55)
[2018-11-23] MEDS: ONDANSETRON 4 MG/2 ML VIAL IV PRN ×5 (03:18→23:09)
--- NOTE | 2018-11-23 04:28 | P.HP ---
Certification for Inpatient Patient admitted to: Observation With expected LOS: <2 Midnights Patient will require the following post-hospital care: None Practitioner: I am a practitioner with admitting privileges, knowledge of patient current condition, hospital course, and medical plan of care. Services: Services provided to patient in accordance with Admission requirements found in Title 42 Section 412.3 of the Code of Federal Regulations Patient History Date of Service: 11/22/18 Reason for admission: Syncope History of Present Illness: Patient is a 43yo who was admitted to the hospital with syncope. Patient apparently passed out while with her daughter. She remained unresponsive for about 10 minutes. This has happened before but not to this extent. Patient was brought into the ER by EMS. Patient had work-up in the ER including CT head and this was negative. Clinically, patient has improved and she may be back to her baseline level of functioning. She denies tripping, she denies palpitations or chest pain, she denies paresthesias. She states that her BP was ok, and she denies low blood sugars. She is unable to see, but she communicates very effectively. At this time, patient will be admitted to the hospital for further evaluation. Allergies No Known Allergies Allergy (Verified 07/04/18 00:42) Home Medications: Insulin Glargine,Hum.rec.anlog [Tounaila Sololliear] 10 units SQ DAILY 12/22/17 ALPRAZolam [Alprazolam] 1 mg PO DAILY PRN 11/23/18 Metoclopramide HCl 1 tab PO DAILY PRN 11/23/18 - Past Medical/Surgical History Has patient received pneumonia vaccine in the past: No Diabetic: Yes -: Legally blind, diabetic retinopathy -: Hypertension -: Depression with anxiety -: History of thyroid cancer -: Hyperlipidemia -: Tobacco abuse -: GERD -: Diabetic retinopathy and nephropathy -: CKD III -: hyperlipidemia -: CVA x3 -: Cholecystectomy -: Thyroidectomy -: Multiple eye surgeries -: Psychosocial/ Personal History: The patient is . She has 1 child. She is disabled. - Family History Father Medical History: Heart disease, Hypertension, Other (see notes) Notes: thyroid problems Mother Medical History: Diabetes, Kidney disease - Social History Smoking Status: Current every day smoker Alcohol use: Yes CD- Drugs: No Caffeine use: Yes Place of Residence: Home Review of Systems 10-point ROS is otherwise unremarkable Physical Examination - Vital Signs Temperature: 98.6 F Blood Pressure: 150/90 Pulse: 83 Respirations: 18 Pulse Ox (%): 100 - Physical Exam General: Alert, In no apparent distress, Oriented x3 HEENT: Atraumatic, PERRLA, Mucous membr. moist/pink, EOMI Neck: Supple, 2+ carotid pulse no bruit, JVD not distended, No Thyromegaly, No LAD, Without JVD or thyroid abnormality Respiratory: Clear to auscultation bilaterally, Normal air movement Cardiovascular: Regular rate/rhythm, Normal S1 S2, No murmurs Gastrointestinal: Normal bowel sounds, Soft and benign, Non-distended, No tenderness Musculoskeletal: No clubbing, No swelling, No tenderness Integumentary: No rashes Neurological: Normal gait, Normal speech, Normal strength at 5/5 x4 extr, Normal tone, Sensation intact, Cranial nerves 3-12 intact, Normal affect Lymphatics: No axilla or inguinal lymphadenopathy - Studies Laboratory Data (last 24 hrs) 11/22/18 17:21: PT 10.7, INR 0.90, APTT 31.1 11/22/18 17:21: WBC 18.3 H, Hgb 12.9, Hct 38.8, Plt Count 376 11/22/18 15:43: Sodium 137, Potassium 3.9, BUN 35 H, Creatinine 3.74 H, Glucose 190 H, Magnesium 1.8, Total Bilirubin 0.3, AST 17, ALT 13, Alkaline Phosphatase 64, Lipase 90 Assessment & Plan - Problems (Diagnosis) (1) Syncope and collapse Current Visit: Yes Status: Acute (2) COPD (chronic obstructive pulmonary disease) Onset Date: 03/03/17 Current Visit: No Status: Chronic Qualifiers: COPD type: chronic bronchitis Chronic bronchitis type: unspecified Qualified Code(s): J42 - Unspecified chronic bronchitis (3) CVA (cerebral vascular accident) Onset Date: 03/09/17 Current Visit: No Status: Chronic Qualifiers: (4) DDD (degenerative disc disease) Current Visit: No Status: Chronic Qualifiers: Spinal region: lumbar Qualified Code(s): M51.36 - Other intervertebral disc degeneration, lumbar region (5) Depression with anxiety Onset Date: 03/03/17 Current Visit: No Status: Chronic (6) Diabetes mellitus Onset Date: 03/03/17 Current Visit: No Status: Chronic - Plan Plan: 1. Monitor on telemetry 2. Strict BS control 3. Orthostatics 4. Carotid doppler and echo 5. Serial troponins and EKG 6. Gentle hydration 7. GI/DVT prophylaxis Discharge Plan: Home Plan to discharge in: 48 Hours - Advance Directives Does patient have a Living Will: No Does patient have a Durable POA for Healthcare: No - Code Status/Comfort Care Code Status Assessed: Yes Code Status: Full Code Critical Care: No Time Spent Managing PTS Care (In Minutes): 45
[2018-11-23 07:17] LABS: Absolute Lymphocytes (CBC) 2.5 K/uL (0.7-4.9); Absolute Monocytes 0.6 K/uL (0.1-1.3); Absolute Neutrophil 11.2 K/uL (1.8-8.0); Basophils % 0.7 % (0-1.3); Eosinophils % 0.3 % (0-4.4); Hematocrit 35.5 % (36.0-45.0); Lymphocytes % 17.1 % (15.3-44.8); MPV 7.8 fL (7.6-11.3); Monocytes % 4.2 % (3.3-12.3); RBC Red Blood Cell Count 3.95 M/uL (3.86-4.86)
[2018-11-23 07:45] LABS: Albumin 1.9 g/dL (3.4-5.0); Bilirubin Total 0.4 mg/dL (0.2-1.0); Potassium 4.3 mmol/L (3.5-5.1); Protein, Total 5.3 g/dL (6.4-8.2)
[2018-11-23] MEDS: ENOXAPARIN 30 MG/0.3 ML SQ SCH (08:14)
[2018-11-23] MEDS ORDERED: PNEUMOCOCCAL VACCINE 0.5 ML IMVAC ONE (09:00)
[2018-11-23] MEDS ORDERED: D5W 1,000 ML with NA BICARB 8.4% 100 MEQ IV SCH ×2 (10:45)
[2018-11-23] MEDS ORDERED: D50W 25 GM/50 ML SYRINGE IV PRN (11:34)
[2018-11-23] MEDS ORDERED: GLUCAGON 1 MG/VIAL IM PRN (11:34)
--- NOTE | 2018-11-23 11:40 | EKG ---
Test Date: 2018-11-22 Test Time: 15:33:28 Petrography Teacher: NATHALIA MEASUREMENT RESULTS: Intervals: Rate: 78 SC: 142 QRSD: 72 QT: 406 QTc: 462 [place]: P: 69 SC: 142 QRS: 28 T: 83 INTERPRETIVE STATEMENTS: Normal sinus rhythm Possible Left atrial enlargement Borderline ECG Compared to ECG 08/23/2018 09:54:43 No significant changes Electronically Signed On 11-22-18 16:05:37 CDT by Souleymane Julio
--- NOTE | 2018-11-23 14:26 | RAD REPORT ---
EXAM DESCRIPTION: US - Renal Ultrasound-Complete - 11/23/2018 2:17 pm CLINICAL HISTORY: DELMA Flank pain, renal failure COMPARISON: Renal Ultrasound-Complete dated 09/02/2017 FINDINGS: Both kidneys are normal in size, shape and echotexture. The right kidney measures 9.0 x 5.7 x 5.5 cm. No hydronephrosis, focal mass or perinephric fluid. The left kidney measures 10.2 x 6.5 x 5.0 cm. No hydronephrosis, focal mass or perinephric fluid. The urinary bladder is incompletely distended without gross abnormality seen. IMPRESSION: Unremarkable renal sonogram.
[2018-11-23] MEDS: D5 0.45 NS 1,000 ML IV SCH (14:32)
--- NOTE | 2018-11-23 16:46 | CON ---
Date of Consultation: 11/23/2018 Reason For Consultation: Elevated BUN and creatinine, fluid management, acidosis. History Of Present Illness: This is a 43-year-old female with significant past medical history of di abetes complicated with neuropathy, nephropathy, retinopathy, stage IV, baseline creatinine, GFR arou nd 18, creatinine around 3; depression; hypertension; gastroparesis; hypothyroidism; thyroid cancer; COPD; the patient was in her regular state of health. According to her for the last few days has petar sea, vomiting, diarrhea, feeling weak. For that reason, came to the hospital. Primary workup showed acidosis. Bicarb down to 16 with elevated BUN and creatinine. Creatinine up to 3.5 with GFR down t o 13. For that reason, we have been consulted. The patient denied any recent change in her medicati on. Denied any IV contrast. No other hospitalization. The patient was started on IV fluid, started feeling slightly better. Acidosis has been resolved on the bicarb drip. Past Medical History: Includes: 1.Hypertension. 2.Depression. 3.Diabetes complicated with neuropathy, nephropathy, and retinopathy. 4.Gastroparesis. 5.Chronic kidney disease stage 4, baseline creatinine 3, GFR around 18. 6.Hypothyroidism. 7.Thyroid cancer. 8.COPD. Past Surgical History: Includes: 1.. 2.Thyroidectomy. 3.Cholecystectomy. 4.Eye surgery. Family History: Positive for diabetes, hypertension, and end-stage renal disease. Social History: Denies smoking. Denies drinking. Denies drugs abuse. Lives at home. Review of Systems: Head and Neck: No red eye. No ear pain. Has vision impairment. GI: Has nausea, vomiting, and diarrhea. : No polyuria. No dysuria. No hematuria. Automation Qtp Tester: No vaginal discharge. Respiratory: Has shortness of breath. Cardiovascular: No chest pain. Endocrine: No polydipsia. Skin: No rash. Neuro: Has neuropathy, decrease in vision. Musculoskeletal: Generalized fatigue. Skin: No rash. Medications: Home medications include metoclopramide, insulin, and alprazolam. Current medications, bicarb drip, Zofran. Physical Examination: General: When I saw the patient, the patient lying in bed, not on any distress. Vital Signs: Blood pressure 134/72, pulse of 78, afebrile. No hypotension on this admission. Chest: Clear to auscultation. Heart: S1, S2. Systolic murmur. Abdomen: Soft, nontender. Extremities: No edema. Neuro: Alert, nonfocal. Laboratory Data: WBC 14.5, H and H 11.6/35.5, platelet 316. Sodium 137, potassium 4.3, bicarb 22, c hloride 106, BUN 34, creatinine 3.5, calcium 7.8. On admission, creatinine 3.7, GFR of 13, bicarb of 16. From reviewing the data, SPEP was done, possible M spike, PTH of 64, protein creatinine of 8 g. Serology was negative. Assessment And Plan: 1.Acute kidney injury on advanced chronic kidney disease, mostly progression of her disease superimp osed with gastrointestinal loss. I am going to go ahead and send for renal ultrasound for further ev aluation and I am going to send for immunofixation given the finding on the SPEP before and given the significant proteinuria, I am going to go ahead and repeat her serology even though I doubt it is au toimmune given no activity in the urine and the slow progression of her disease. 2.Hypertension, controlled optimal. We will keep holding any RUBEN inhibitor or ARB given the advance d kidney disease for the time being. 3.Gastroenteritis. Continue symptomatic treatment. 4.Acidosis, non-anion gap secondary to gastrointestinal loss. I am going to go ahead and change IV fluid to D5 half and we will follow up the patient. 5.Diabetes as by primary. CASSIE/KERI Voice ID: [id number] Report ID: [id number]
[2018-11-23] MEDS: INSULIN -REGULAR HUMAN 50 UNIT/0.5 ML ML SQ SCH ×2 (16:47→21:00)
[2018-11-23] MEDS: ACETAMINOPHEN 500 MG TAB PO PRN (18:51)
--- NOTE | 2018-11-23 19:52 | RAD REPORT ---
EXAM DESCRIPTION: US - CP - 11/23/2018 7:15 pm CLINICAL HISTORY: Syncope COMPARISON: Ultrasound February 2017 TECHNIQUE: Real-time sonographic evaluation of both carotid systems was performed. Coffman scale and Do ppler interrogation were performed with waveform tracing bilaterally. FINDINGS: Normal high resistance waveforms are noted in both external carotid arteries. The common c arotid arteries and internal carotid arteries show normal low resistance waveforms. Mild plaquing changes are present. On visual inspection there is no significant luminal narrowing. Pe ak systolic and end diastolic velocity values and the ICA/CCA ratios are in the non-hemodynamically s ignificant range. These values are similar to the 2017 study. Antegrade flow seen in both vertebral arteries. Velocity values and ratios were recorded and are retained in the patient's imaging records. IMPRESSION: Minimal atherosclerotic changes stable from 2017 exam. No evidence of a hemodynamically significant stenosis.
[2018-11-23] MEDS ORDERED: HYDROCODONE/APAP 5/325 MG TAB PO ONE (22:26)
--- NOTE | 2018-11-23 23:16 | P.PN ---
Subjective Date of Service: 11/23/18 Chief Complaint: Syncope Patient seen and examined at bedside. Mother at bedside. Chart reviewed and case discussed with nursing staff. Review of Systems 10-point ROS is otherwise unremarkable Physical Examination - Vital Signs Temperature: 98.7 F Blood Pressure: 156/87 Pulse: 80 Respirations: 18 Pulse Ox (%): 99 - Physical Exam General: Alert, In no apparent distress, Oriented x3 HEENT: Atraumatic, PERRLA, EOMI Neck: Supple, JVD not distended Respiratory: Clear to auscultation bilaterally, Normal air movement Cardiovascular: Regular rate/rhythm, Normal S1 S2 Gastrointestinal: Normal bowel sounds, No tenderness Musculoskeletal: No tenderness Integumentary: No rashes Neurological: Normal speech, Normal tone, Normal affect Lymphatics: No axilla or inguinal lymphadenopathy Assessment And Plan - Plan - Problems (Diagnosis) (1) Syncope and collapse Current Visit: Yes Status: Acute (2) COPD (chronic obstructive pulmonary disease) Onset Date: 03/03/17 Current Visit: No Status: Chronic Qualifiers: COPD type: chronic bronchitis Chronic bronchitis type: unspecified Qualified Code(s): J42 - Unspecified chronic bronchitis (3) CVA (cerebral vascular accident) Onset Date: 03/09/17 Current Visit: No Status: Chronic Qualifiers: (4) DDD (degenerative disc disease) Current Visit: No Status: Chronic Qualifiers: Spinal region: lumbar Qualified Code(s): M51.36 - Other intervertebral disc degeneration, lumbar region (5) Depression with anxiety Onset Date: 03/03/17 Current Visit: No Status: Chronic (6) Diabetes mellitus Onset Date: 03/03/17 Current Visit: No Status: Chronic 1. Continue to Monitor on telemetry 2. Strict BS control 3. Orthostatics ordered, pending 4. Carotid doppler and echo ordered, pending 5. Serial troponins and EKG 6. Gentle hydration 7. GI/DVT prophylaxis
[2018-11-24] MEDS: D5 0.45 NS 1,000 ML IV SCH ×2 (03:45→16:31)
[2018-11-24] MEDS: ONDANSETRON 4 MG/2 ML VIAL IV PRN ×3 (06:19→16:15)
[2018-11-24 07:59] LABS: Albumin 2.1 g/dL (3.4-5.0); Phosphorus 3.5 mg/dL (2.5-4.9); Potassium 3.9 mmol/L (3.5-5.1); Uric Acid 5.5 mg/dL (2.6-6.0)
[2018-11-24] MEDS: INSULIN -REGULAR HUMAN 50 UNIT/0.5 ML ML SQ SCH ×4 (08:57→21:00)
[2018-11-24] MEDS: ENOXAPARIN 30 MG/0.3 ML SQ SCH (08:57)
[2018-11-24] MEDS: Levofloxacin 250mg IV 250 MG/50 ML BAG IV SCH (10:41)
[2018-11-24] MEDS ORDERED: MORPHINE 4 MG/ML SYR IV ONE (11:05)
[2018-11-24] MEDS ORDERED: MORPHINE 2 MG/ML SYR IV ONE (11:08)
[2018-11-24] MEDS ORDERED: LORazepam 2 MG/ML VIAL IV ONE (11:13)
[2018-11-24] MEDS ORDERED: NITROGLYCERIN 0.4 MG/TAB SL ONE (11:19)
[2018-11-24] MEDS ORDERED: NA CHLORIDE 0.9% 0 ML ONE (11:20)
[2018-11-24] MEDS ORDERED: LORazepam 2 MG/ML VIAL ONE (11:25)
[2018-11-24] MEDS ORDERED: METOCLOPRAMIDE 10 MG/2mL INJ IV SCH (12:00)
--- NOTE | 2018-11-24 12:56 | RAD REPORT ---
EXAM DESCRIPTION: RAD - Chest Single View - 11/24/2018 12:50 pm CLINICAL HISTORY: Chest pain radiating to the back COMPARISON: November 22 TECHNIQUE: AP portable chest image was obtained 1246 hours . FINDINGS: Lungs are clear. Heart and vasculature are normal. No measurable pleural effusion and no p neumothorax. No acute bony abnormality seen. No acute aortic findings suspected. IMPRESSION: No acute cardiopulmonary process. No significant interval change.
--- NOTE | 2018-11-24 15:43 | PN ---
Date of Progress Note: 11/24/2018 Subjective: The patient was admitted with gastroenteritis. The patient still has nausea and vomitin g. Lab on admission, she has some acidosis, started on bicarb drip, recovered. The patient still liu s nausea and vomiting with diarrhea. Physical Examination: Vital Signs: Blood pressure 151/77, pulse of 88, afebrile. The patient had good urine output around 400 on 12 hours. Chest: Clear to auscultation. Heart: S1, S2. Regular. Abdomen: Soft, nontender. Extremities: No edema. Laboratory Data: H and H 11.6/35.5, WBC 14.5. Sodium 135, potassium 3.9, bicarb 22, BUN 33, creatin ine 3.7, GFR of 13, uric acid 5.5, calcium 7.9, phosphorus 3.5, albumin 2.1, corrected calcium is 9.5 . Current Medications: The patient on its include, 1.Lovenox. 2.D5 half at 75 per hour. Assessment And Plan: 1.Chronic kidney disease progression to stage 5, stable. No uremic, no hyperkalemia. Acidosis has been resolved. Normal size kidney with nephrotic range protein urea. Serology still pending. Mostl y secondary to diabetes. We will continue IV hydration given still active nausea and vomiting and we will monitor the patient. 2.Hypertension, not controlled. I am going to start the patient on amlodipine and we will follow up the patient. 3.Acidosis secondary to renal failure and GI loss, recovered, resolved. 4.Gastroenteritis. I am going to start the patient on Flagyl and ciprofloxacin, and we will follow up. 5.Diabetes as by primary. CASSIE/KERI Voice ID: [id number] Report ID: [id number]
[2018-11-24] MEDS: METRONIDAZOLE 500mg IVPB 500 MG/100 ML BAG IV SCH (16:15)
--- NOTE | 2018-11-24 17:47 | EKG ---
Test Date: 2018-11-24 Test Time: 11:18:07 Associate Account Director: MARYAN MEASUREMENT RESULTS: Intervals: Rate: 89 AR: 142 QRSD: 72 QT: 388 QTc: 472 [place]: P: 68 AR: 142 QRS: 52 T: 68 INTERPRETIVE STATEMENTS: Normal sinus rhythm Normal ECG Compared to ECG 11/22/2018 15:33:28 No significant changes Electronically Signed On 11-24-18 17:46:21 CDT by Souleymane Julio
--- NOTE | 2018-11-24 18:04 | P.PN ---
Subjective Date of Service: 11/24/18 Chief Complaint: Syncope Patient seen and examined at bedside. Mother at bedside. Chart reviewed and case discussed with nursing staff. Called to bedside urgently by nurse while rounding this morning. She stated that patient was not doing well and not feeling well. Patient was complaining of dizziness, lightheadedness and flashes of bright light. She was also complaining of chest pain and pressure radiating to the back between her shoulder blades. Patient was seen and evaluated at bedside emergently. Orthostatics vital signs, stat CT angio, EKG, chest x-ray were ordered. Patient was given IV morphine 2 mg IV and Ativan 0.5 mg. Stat EKG was obtained , reviewed. Was noted to be normal sinus rhythm, no acute changes. Troponins were also ordered. After IV pain medication and anxiety medications, patient relaxed her symptoms resolved and stated she felt better. She did fall asleep. Patient's vital signs did remain stable except for the positive orthostatics signs. Therefore stat CT angio was canceled as patient also had acute kidney injury and did not seem the CT angio was really needed as patient's symptoms had resolved. Review of Systems 10-point ROS is otherwise unremarkable Physical Examination - Vital Signs Temperature: 98.7 F Blood Pressure: 156/87 Pulse: 80 Respirations: 18 Pulse Ox (%): 99 - Physical Exam General: Alert, Oriented x3, Moderate distress, Severe distress HEENT: Atraumatic, PERRLA, Other (Legally blind), EOMI Neck: Supple, JVD not distended Respiratory: Clear to auscultation bilaterally, Normal air movement Cardiovascular: Normal S1 S2, Irregular heart rate/rhythm (Tachycardic) Gastrointestinal: Normal bowel sounds, No tenderness Musculoskeletal: No tenderness Integumentary: No rashes Neurological: Normal speech, Normal tone, Normal affect - Studies Laboratory Data (last 24 hrs) 11/24/18 11:27: Troponin I < 0.02 11/24/18 07:00: Sodium 135 L, Potassium 3.9, BUN 33 H, Creatinine 3.79 H, Glucose 227 H, Uric Acid 5.5, Phosphorus 3.5 Microbiology Data (last 24 hrs): 11/22/18 19:42 Catheterized Urine [place] Count - Final 11/22/18 19:42 Catheterized Urine - Final No growth. 11/22/18 18:20 Blood - Blood Anaerobic Blood Culture - Final Assessment And Plan - Plan - Problems (Diagnosis) (1) Syncope and collapse Current Visit: Yes Status: Acute (2) COPD (chronic obstructive pulmonary disease) Onset Date: 03/03/17 Current Visit: No Status: Chronic Qualifiers: COPD type: chronic bronchitis Chronic bronchitis type: unspecified Qualified Code(s): J42 - Unspecified chronic bronchitis (3) CVA (cerebral vascular accident) Onset Date: 03/09/17 Current Visit: No Status: Chronic Qualifiers: (4) DDD (degenerative disc disease) Current Visit: No Status: Chronic Qualifiers: Spinal region: lumbar Qualified Code(s): M51.36 - Other intervertebral disc degeneration, lumbar region (5) Depression with anxiety Onset Date: 03/03/17 Current Visit: No Status: Chronic (6) Diabetes mellitus Onset Date: 03/03/17 Current Visit: No Status: Chronic Continue to Monitor on telemetry - no telling events noted so far. Strict BS control Orthostatics positive. Continue IV fluids. Per conversation by charge nurse with primary care physician, patient previously was on pain medication along with Xanax. Primary care physician no longer is prescribing either of these 2 medications. Unsure further history of in regards to these medications. We will hold IV pain medications at this time. Carotid doppler with no hemodynamically significant stenosis. Echo ordered, pending Troponin negative, after this morning's episode. EKG normal as well. Patient may have a component of anxiety versus pain medication seeking? Behavior. We will continue to monitor. Workup so far has been negative. Acute kidney injury, nephrology has been consulted. Their recommendations are greatly appreciated. Patient does have nephrotic range proteinuria, likely secondary to diabetes but further renal workup is pending. Renal ultrasound has been normal. Continue hydration with IV fluids. GI/DVT prophylaxis
[2018-11-25] MEDS: METRONIDAZOLE 500mg IVPB 500 MG/100 ML BAG IV SCH ×3 (00:44→16:12)
[2018-11-25 05:58] LABS: Albumin 1.8 g/dL (3.4-5.0); Phosphorus 3.3 mg/dL (2.5-4.9); Potassium 3.9 mmol/L (3.5-5.1)
[2018-11-25] MEDS: D5 0.45 NS 1,000 ML IV SCH (06:00)
[2018-11-25 06:46] LABS: Rheumatoid Factor NEG (NEG)
--- NOTE | 2018-11-25 08:50 | ECHO ---
HEIGHT: 5 ft 4 in WEIGHT: 145 lb 11.2 oz DATE OF STUDY: 11/24/[address]: Jairo Navarrete MD 2-DIMENSIONAL: YES M.MODE: YES DOPPLER: YES COLOR FLOW: YES TDS: YES PORTABLE: NO DEFINITY: NO BUBBLE STUDY: NO DIAGNOSIS: SYNCOPE, CHEST PAIN CARDIAC HISTORY: CATHERIZATION: NO SURGERY: NO PROSTHETIC VALVE: NO PACEMAKER: NO MEASUREMENTS (cm) DIASTOLIC (NORMALS) SYSTOLIC (NORMALS) IVSd 1.0 (0.6-1.2) LA Diam 3.5 (1.9-4.0) LVEF 60-69% LVIDd 3.9 (3.5-5.7) LVIDs 2.6 (2.0-3.5) %FS % LVPWd 1.0 (0.6-1.2) Ao Diam 2.5 (2.0-3.7) 2 DIMENSIONAL ASSESSMENT: RIGHT ATRIUM: NORMAL LEFT ATRIUM: NORMAL RIGHT VENTRICLE: NORMAL LEFT VENTRICLE: NORMAL TRICUSPID VALVE: NORMAL MITRAL VALVE: NORMAL PULMONIC VALVE: NORMAL AORTIC VALVE: POORLY SEEN, THICKENED LEAFLET PERICARDIAL EFFUSION: NONE AORTIC ROOT: NORMAL LEFT VENTRICULAR WALL MOTION: NORMAL. DOPPLER/COLOR FLOW: NO AORTIC STENOSIS OR AORTIC REGURGITATION. TRACE OF TRICUSPID REGURGITATION. NORMAL RIGHT VENTRICULAR SYSTOLIC PRESSURE. COMMENTS: NORMAL LEFT VENTRICLAR EJECTION FRACTION. MILD AORTIC LEAFLET THICKENING WITH NO AORTIC STENOSIS OR AORTIC REGURGITATION. TRACE OF TRICUSPID REGURGITATION. TECHNOLOGIST: SARA KUMAR
[2018-11-25] MEDS: ENOXAPARIN 30 MG/0.3 ML SQ SCH (09:10)
[2018-11-25] MEDS: INSULIN -REGULAR HUMAN 50 UNIT/0.5 ML ML SQ SCH ×4 (09:11→21:00)
[2018-11-25] MEDS: AMLODIPINE 10 MG TAB PO SCH (09:13)
[2018-11-25] MEDS: ONDANSETRON 4 MG/2 ML VIAL IV PRN (09:21)
[2018-11-25] MEDS: Levofloxacin 250mg IV 250 MG/50 ML BAG IV SCH (11:33)
[2018-11-25] MEDS: HYDRALAZINE HCL 25 MG TABLET PO SCH ×2 (14:37→21:30)
--- NOTE | 2018-11-25 16:50 | P.PN ---
Subjective Date of Service: 11/25/18 Chief Complaint: Syncope Subjective: Improving Patient seen and examined at bedside. Mother at bedside. Chart reviewed and case discussed with nursing staff. States that she has nausea and 2 episodes of vomiting this am. 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 She was told it was due to her diabetes. She was taking metoclopramide at home and does see in [place]?. She has a gastric surgery planned as an outpatient with her physician. She states that she would like to go home because she is feeling better since her diarrhea has now resolved. Review of Systems 10-point ROS is otherwise unremarkable Physical Examination - Vital Signs Temperature: 97.8 F Blood Pressure: 139/74 Pulse: 89 Respirations: 16 Pulse Ox (%): 99 - Physical Exam General: Alert, In no apparent distress HEENT: Atraumatic, PERRLA, EOMI Neck: Supple, JVD not distended Respiratory: Clear to auscultation bilaterally, Normal air movement Cardiovascular: Regular rate/rhythm, Normal S1 S2 Gastrointestinal: Normal bowel sounds, No tenderness Musculoskeletal: No tenderness Integumentary: No rashes Neurological: Normal speech, Normal tone, Normal affect Lymphatics: No axilla or inguinal lymphadenopathy Assessment And Plan - Plan Continue to Monitor on telemetry - no tele events noted so far. Strict BS control - increased sliding scale insulin to moderate. Orthostatics positive. Continue IV fluids. Per conversation by charge nurse with primary care physician, patient previously was on pain medication along with Xanax. Primary care physician no longer is prescribing either of these 2 medications. Unsure further history of in regards to these medications. We will hold IV pain medications at this time. Carotid doppler with no hemodynamically significant stenosis. Echo ordered, normal with preserved EF. Troponin negative, EKG normal as well. Patient may have a component of anxiety versus pain medication seeking? Behavior. We will continue to monitor. Workup so far has been negative. Acute kidney injury, nephrology has been consulted. Their recommendations are greatly appreciated. Patient does have nephrotic range proteinuria, likely secondary to diabetes but further renal workup is pending. Renal ultrasound has been normal. She may also have some underlying chronic kidney disease secondary to her DM. Continue hydration with IV fluids. Diarrhea has now resolved. She is currently on cipro/flagyl. Nausea/Vomiting: likely secondary to gastroparesis due to DM. Patient does see a specialist and does have gastric surgery planned as an outpatient. We will continue metoclopramide. Possible discharge in the am if continues to be stable. GI/DVT prophylaxis Discharge Plan: Home Plan to discharge in: 24 Hours
[2018-11-25] MEDS: ACETAMINOPHEN 500 MG TAB PO PRN ×2 (17:42→21:29)
[2018-11-25] MEDS: CARVEDILOL 6.25 MG TAB PO SCH (21:30)
[2018-11-26] MEDS: METRONIDAZOLE 500mg IVPB 500 MG/100 ML BAG IV SCH ×3 (01:45→17:30)
[2018-11-26] MEDS: D5 0.45 NS 1,000 ML IV SCH ×3 (01:48→15:15)
--- NOTE | 2018-11-26 03:49 | PN ---
Date of Progress Note: 11/25/2018 NEPHROLOGY FOLLOWUP Subjective: The patient was admitted with gastroenteritis. The patient was started on Levaquin and Flagyl yesterday. Diarrhea has been stopped, but the patient still has nausea and vomiting. Physical Examination: Vital Signs: When I saw the patient, blood pressure 160/75 and pulse of 85. Chest: Clear to auscultation. Heart: S1, S2. Regular. Abdomen: Mild tenderness in the epigastric area. No guarding. No rebound. Extremities: No edema. Laboratory Data: WBC 14.5, H and H 11.6/35.5, and platelets of 316. Sodium 138, potassium 3.9, bica rb 22, BUN is 28, creatinine 3.8, calcium 7.5, and phosphorus 3.3. Current Medications: Current medications the patient is on include: 1.Amlodipine. 2.Carvedilol. 3.Lovenox. 4.Hydralazine. 5.Insulin. 6.Levaquin. 7.Metoclopramide. 8.Lasix. 9.Levaquin. Assessment And Plan: 1.Chronic kidney disease, stage V. No uremia. No hyperkalemia. No acidosis. Looks still on the d ry side. I do not see any need to initiate any renal replacement therapy. Continue hydration. We w ill monitor the patient. 2.Hypertension, uncontrolled. I am going to go ahead and increase her carvedilol. We will monitor the patient. 3.Gastroenteritis. Continue current antibiotic. We will follow up with the primary. 4.Gastroparesis. Continue current treatment. We will follow up with the primary. 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 Given the vague history, we will send for full workup. We will follow up with the results. Unfortunately, we cannot start any RUBEN inhibit or or ARB given the advanced GFR. MA/MODL Voice ID: [id number] Report ID: [id number]
[2018-11-26 06:02] LABS: Phosphorus 3.1 mg/dL (2.5-4.9); Potassium 3.7 mmol/L (3.5-5.1)
[2018-11-26] MEDS: METOCLOPRAMIDE 5 MG TAB PO PRN ×2 (07:33→13:42)
[2018-11-26] MEDS: INSULIN -REGULAR HUMAN 50 UNIT/0.5 ML ML SQ SCH ×4 (07:34→23:05)
[2018-11-26] MEDS: AMLODIPINE 10 MG TAB PO SCH (10:01)
[2018-11-26] MEDS: CARVEDILOL 6.25 MG TAB PO SCH ×2 (10:02→10:03)
[2018-11-26] MEDS: ENOXAPARIN 30 MG/0.3 ML SQ SCH (10:02)
[2018-11-26] MEDS: HYDRALAZINE HCL 25 MG TABLET PO SCH ×3 (10:03→21:00)
[2018-11-26] MEDS: INSULIN GLARGINE 100 UNITS/ML SQ SCH (10:04)
[2018-11-26] MEDS: Levofloxacin 250mg IV 250 MG/50 ML BAG IV SCH (10:24)
[2018-11-26] MEDS: ACETAMINOPHEN 500 MG TAB PO PRN (13:41)
--- NOTE | 2018-11-26 14:07 | P.PN ---
Subjective Date of Service: 11/26/18 Chief Complaint: Syncope Subjective: Improving Pt with progressing CKD admitted for nausea and abd pain, Hx of gastroparesis, refeered to Surgeon at [facility] for possible stimulator translation vs surgical intervention Hx of DM since adolescence family members on dialysis cr stable for now no need for renal replacement therapy can be discharged from nephrologyu point of view will reduce IVF rate Physical Examination - Vital Signs Temperature: 97.3 F Blood Pressure: 125/67 Pulse: 88 Respirations: 16 Pulse Ox (%): 99 - Physical Exam General: Oriented x3 HEENT: Atraumatic Neck: Supple, Without JVD or thyroid abnormality Respiratory: Clear to auscultation bilaterally, Normal air movement Cardiovascular: No edema, Regular rate/rhythm, Normal S1 S2 Gastrointestinal: Normal bowel sounds Integumentary: No rashes Assessment And Plan - Current Problems (Diagnosis) (1) CKD (chronic kidney disease), stage V Current Visit: Yes Status: Acute (2) GERD (gastroesophageal reflux disease) Onset Date: 03/03/17 Current Visit: No Status: Chronic Qualifiers: Esophagitis presence: esophagitis presence not specified Qualified Code(s) : K21.9 - Gastro-esophageal reflux disease without esophagitis - Plan Chronic kidney disease, stage V. No uremic symptoms Due to DM serology w/u sent will need to f/u with nephrology and educated about dialysis models I adicuused with pt that she likely will need to initiate HD before 2019 Hypertension, controlled. Dm as per PCP gastroparesis nausea improving now f/u with her Gi as an OP
--- NOTE | 2018-11-26 16:00 | P.DS ---
Admission Date: 11/24/18 Discharge Date: 11/26/18 Disposition: ROUTINE DISCHARGE Discharge Condition: GOOD Reason for Admission: Syncope Consultations: Nephrology, Dr. Beckman Brief History of Present Illness: Patient is a 43yo who was admitted to the hospital with syncope. Patient apparently passed out while with her daughter. She remained unresponsive for about 10 minutes. This has happened before but not to this extent. Patient was brought into the ER by EMS. Patient had work-up in the ER including CT head and this was negative. Clinically, patient has improved and she may be back to her baseline level of functioning. She denies tripping, she denies palpitations or chest pain, she denies paresthesias. She states that her BP was ok, and she denies low blood sugars. She is unable to see, but she communicates very effectively. At this time, patient will be admitted to the hospital for further evaluation. Hospital Course: Patient was admitted to the floor with tele. No tele events noted on monitor. Strict BS control - her blood sugars were elevated therefore her sliding scale was increased to moderate. Blood sugars did stabilize, though fluctuated. Patient states that she does not take her insulin at home because she does not eat. Counseled on proper med medications and insulin usage. Orthostatics were positive. She was given IV fluids. Per conversation by charge nurse with primary care physician, patient previously was on pain medication along with Xanax. Primary care physician no longer is prescribing either of these 2 medications. We will hold IV pain medications at this time. No pain medication prescription on discharge. Carotid doppler with no hemodynamically significant stenosis. Echo was normal with preserved EF. Troponin remained negative, EKG normal as well. Patient may have a component of anxiety versus pain medication seeking? Behavior. She did have an episode of what seemed like an anxiety attack for which she was given IV Ativan and morphine. She felt better after the IV Ativan. No further episodes throughout the stay Workup negative for any acute abnormality on imaging or echo. Acute kidney injury, nephrology has been consulted. Patient does have nephrotic range proteinuria. This was thought to be likely secondary to diabetes. Renal ultrasound was normal. It is thought that she likely has some chronic kidney disease secondary to her diabetes mellitus. She will follow up outpatient with Nephrology in 2 weeks. She did have Diarrhea but only for half a day. It resolved. She was started on Cipro and Flagyl. No need for antibiotics on discharge. Nausea/Vomiting: likely secondary to gastroparesis due to DM. Patient sees Dr. Hamilton (Gastro) who has referred her to the surgeon for possible surgical intervention. She will continue metoclopramide on discharge. It is recommended that she follows up with her GI doctor in the next 2 weeks to see if any other intervention to be done earlier that March. For blood pressure was uncontrolled throughout the stay initially. She was started on amlodipine, hydralazine and Coreg. Her blood pressure is improved and stabilized after medications. She will be discharged home on these medications. She will follow up with nephrology for further management. She otherwise remained stable throughout the stay. She was discharged home in a stable and safe manner. She will follow up with the primary care physician in 2-3 days. Vital Signs/Physical Exam: Temp Pulse Resp BP Pulse Ox 97.3 F 88 16 125/67 99 11/26/18 14:07 11/26/18 14:07 11/26/18 14:07 11/26/18 14:07 11/26/18 14:07 General: Alert, In no apparent distress, Oriented x3 HEENT: Atraumatic, PERRLA, Other (Legally blind), EOMI Neck: Supple, JVD not distended Respiratory: Clear to auscultation bilaterally, Normal air movement Cardiovascular: Regular rate/rhythm, Normal S1 S2 Gastrointestinal: Normal bowel sounds, No tenderness Musculoskeletal: No tenderness Integumentary: No rashes Neurological: Normal speech, Normal tone, Normal affect Lymphatics: No axilla or inguinal lymphadenopathy Laboratory Data at Discharge: WBC 14.5 K/uL (4.3-10.9) H D 11/23/18 07:05 Hgb 11.6 g/dL (12.0-15.0) L 11/23/18 07:05 Hct 35.5 % (36.0-45.0) L 11/23/18 07:05 Plt Count 316 K/uL (152-406) 11/23/18 07:05 PT 10.7 SECONDS (9.5-12.5) 11/22/18 17:21 INR 0.90 11/22/18 17:21 APTT 31.1 SECONDS (24.3-36.9) 11/22/18 17:21 Sodium 140 mmol/L (136-145) 11/26/18 05:15 Potassium 3.7 mmol/L (3.5-5.1) 11/26/18 05:15 BUN 26 mg/dL (7-18) H 11/26/18 05:15 Creatinine 3.85 mg/dL (0.55-1.3) H 11/26/18 05:15 Glucose 224 mg/dL (74-106) H 11/26/18 05:15 Uric Acid 5.5 mg/dL (2.6-6.0) 11/24/18 07:00 Phosphorus 3.1 mg/dL (2.5-4.9) 11/26/18 05:15 Magnesium 1.8 mg/dL (1.8-2.4) 11/22/18 15:43 Total Bilirubin 0.4 mg/dL (0.2-1.0) 11/23/18 07:05 AST 10 U/L (15-37) L 11/23/18 07:05 ALT 10 U/L (12-78) L 11/23/18 07:05 Alkaline Phosphatase 61 U/L (45-117) 11/23/18 07:05 Troponin I < 0.02 ng/mL (0.0-0.045) 11/24/18 11:27 Lipase 90 U/L (73-393) 11/22/18 15:43 Home Medications: Insulin Glargine,Hum.rec.anlog [Yanick Arroyo] 10 units SQ DAILY 12/22/17 Amlodipine [Norvasc*] 10 mg PO DAILY #30 tab 11/26/18 Carvedilol [Coreg*] 6.25 mg PO BID #60 tab 11/26/18 Hydralazine [Apresoline*] 25 mg PO TID #90 tab 11/26/18 Metoclopramide HCl 1 tab PO DAILY PRN #30 tablet 11/26/18 New Medications: Amlodipine [Norvasc*] 10 mg PO DAILY #30 tab Carvedilol [Coreg*] 6.25 mg PO BID #60 tab Hydralazine [Apresoline*] 25 mg PO TID #90 tab Metoclopramide HCl 1 tab PO DAILY PRN #30 tablet PRN Reason: Nausea / Vomiting Patient Discharge Instructions: Please follow up with the primary care physician in 2- 3 days. Please follow up with Nephrology in 2 weeks for follow up of renal workup started here in the hospital. New medications: Amlodipine, hydralazine, carvedilol: These are all blood pressure medications to help her blood pressure under better control. Diet: ADA Activity: Ad abdias Followup: Nael Beckman MD [ACTIVE - CAN ADMIT] - 1-2 Weeks Time spent managing pt's care (in minutes): 55
[2018-11-27] MEDS: METRONIDAZOLE 500mg IVPB 500 MG/100 ML BAG IV SCH ×2 (01:11→09:52)
[2018-11-27] MEDS: METOCLOPRAMIDE 5 MG TAB PO PRN (04:20)
[2018-11-27 06:04] LABS: Potassium 3.9 mmol/L (3.5-5.1)
[2018-11-27] MEDS: HYDRALAZINE HCL 25 MG TABLET PO SCH ×3 (09:44→21:00)
[2018-11-27] MEDS: CARVEDILOL 6.25 MG TAB PO SCH ×2 (09:45→21:00)
[2018-11-27] MEDS: AMLODIPINE 10 MG TAB PO SCH (09:46)
[2018-11-27] MEDS: ENOXAPARIN 30 MG/0.3 ML SQ SCH (09:47)
[2018-11-27] MEDS: INSULIN -REGULAR HUMAN 50 UNIT/0.5 ML ML SQ SCH ×4 (09:48→20:47)
[2018-11-27] MEDS: INSULIN GLARGINE 100 UNITS/ML SQ SCH (09:50)
[2018-11-27] MEDS: D5 0.45 NS 1,000 ML IV SCH (11:00)
[2018-11-27 12:39] LABS: Hepatitis C Virus RNA (PCR)log <1.18 log IU/mL
[2018-11-27] MEDS: Levofloxacin 250mg IV 250 MG/50 ML BAG IV SCH (12:53)
[2018-11-27] MEDS: METOCLOPRAMIDE 5 MG TAB PO SCH ×2 (14:00→20:52)
[2018-11-27] MEDS ORDERED: NA CHLORIDE 0.9% 1,000 ML IV SCH (14:00)
[2018-11-27 14:31] LABS: HIV AG/AB 4TH GEN Non-reactive (Non-reactive)
--- NOTE | 2018-11-27 15:59 | PN ---
Date of Progress Note: 11/27/2018 Subjective: The patient is a 43-year-old woman with multiple medical problems. She came to the hospital because of generalized weakness, nausea, vomiting. She was found to have severe leukocytosis. White count was 18.3. Nephrology consultation was requested for elevated BUN and creatinine. On arrival to the hospital, creatinine was 3.74 and BUN 35. Renal function has not improved over the last several days. The patient has nonoliguric urine output. Review of medical records showed creatinine level on previous occasion was ranging from 1.72 back in August 2017 up to 2.8 in June 2018 and was up to 3.2 in August 2018. The patient has chronic kidney disease stage 3 advancing to stage 4 and renal function has worsened over last several months. The patient has chronic kidney disease, renal function progressively worse. Currently, the patient has stage 5 chronic kidney disease. There is no uremic symptomatology, although she developed some nausea, vomiting. The patient is treated for gastroenteritis and received Levaquin and Flagyl. She was medicated with Zofran and Reglan. The patient has history of gastroparesis and treatment was started by primary team for gastroparesis. The patient has nephrotic range proteinuria, which was felt to be due to diabetes. The patient cannot restart RUBEN inhibitor because of worsening of the renal function, acute kidney injury. Electrolytes are stable. Potassium is within normal limits. There is no metabolic acidosis. Review of Systems: The patient is complaining of nausea or vomiting. Denies melena or hematemesis. Physical Examination: Lungs: Clear to auscultation bilaterally. Heart: S1, S2. Abdomen: Soft, benign. Extremities: Slight edema. Impression And Plan: 1. Chronic kidney stage 4, advancing to stage 5, prerenal azotemia secondary to diminished p.o. fluid intake. Continue IV fluids. 2. Nausea, vomiting, gastroenteritis, gastroparesis. Continue current treatment with Reglan and antibiotics. Pending culture to rule out C diff colitis. 3. Hypertension. Blood pressure in acceptable control. Continue low-sodium diet. The patient is currently on calcium channel tierney to control blood pressure. She is not a candidate for RUBEN inhibitor because of marginally diminished renal function and predialysis stage. RUBEN inhibitor at this stage may be a risk for hyperkalemia. I spent total 36 min including 25 min to coordinate care plan. TAMIKA/ANTONIOL Voice ID: [id number] Report ID: [id number] DAYANARA
[2018-11-27] MEDS: metroNIDAZOLE 500 MG TABLET PO SCH (17:05)
[2018-11-27] MEDS: CIPROFLOXACIN HCL 250 MG TAB PO SCH (20:47)
[2018-11-27] MEDS: MIDODRINE HCL 5 MG TABLET PO SCH (21:00)
--- NOTE | 2018-11-27 22:39 | P.PN ---
Subjective Date of Service: 11/27/18 Chief Complaint: Syncope Patient seen and examined at bedside. Mother at bedside. Chart reviewed and case discussed with nursing staff. States that she has nausea and 2 episodes of vomiting this am. 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 She was told it was due to her diabetes. She was taking metoclopramide at home and does see in [place]?. She has a gastric surgery planned as an outpatient with her physician. She states that she would like to go home because she is feeling better since her diarrhea has now resolved. Review of Systems 10-point ROS is otherwise unremarkable Physical Examination - Vital Signs Temperature: 96.6 F Blood Pressure: 111/55 Pulse: 77 Respirations: 16 Pulse Ox (%): 99 - Physical Exam General: Alert, In no apparent distress HEENT: Atraumatic, PERRLA, EOMI Neck: Supple, JVD not distended Respiratory: Clear to auscultation bilaterally, Normal air movement Cardiovascular: Regular rate/rhythm, Normal S1 S2 Gastrointestinal: Normal bowel sounds, No tenderness Musculoskeletal: No tenderness Integumentary: No rashes Neurological: Normal speech, Normal tone, Normal affect Lymphatics: No axilla or inguinal lymphadenopathy - Studies Microbiology Data (last 24 hrs): 11/22/18 20:10 Blood - Blood Aerobic Blood Culture - Final No growth in 5 days. 11/22/18 20:10 Blood - Blood Anaerobic Blood Culture - Final No growth in 5 days. 11/22/18 18:20 Blood - Blood Aerobic Blood Culture - Final No growth in 5 days. 11/22/18 18:20 Blood - Blood Anaerobic Blood Culture - Final Assessment And Plan - Plan Continue to Monitor on telemetry - no tele events noted so far. Strict BS control - increased sliding scale insulin to moderate. Orthostatics positive. Continue IV fluids. Per conversation by charge nurse with primary care physician, patient previously was on pain medication along with Xanax. Primary care physician no longer is prescribing either of these 2 medications. Unsure further history of in regards to these medications. We will hold IV pain medications at this time. Carotid doppler with no hemodynamically significant stenosis. Echo ordered, normal with preserved EF. Troponin negative, EKG normal as well. Patient may have a component of anxiety versus pain medication seeking? Behavior. We will continue to monitor. Workup so far has been negative. Acute kidney injury, nephrology has been consulted. Their recommendations are greatly appreciated. Patient does have nephrotic range proteinuria, likely secondary to diabetes but further renal workup is pending. Renal ultrasound has been normal. She may also have some underlying chronic kidney disease secondary to her DM. Continue hydration with IV fluids. Diarrhea has now resolved. She is currently on cipro/flagyl. Nausea/Vomiting: likely secondary to gastroparesis due to DM. Patient does see a specialist and does have gastric surgery planned as an outpatient. We will continue metoclopramide. Possible discharge in the am if continues to be stable. GI/DVT prophylaxis
[2018-11-27 23:15] LABS: Absolute Monocytes 0.7 K/uL (0.1-1.3); Absolute Neutrophil 5.4 K/uL (1.8-8.0); Basophils % 0.6 % (0-1.3); Eosinophils % 0.7 % (0-4.4); Hematocrit 33.7 % (36.0-45.0); Lymphocytes % 24.1 % (15.3-44.8); MPV 8.1 fL (7.6-11.3); Monocytes % 8.3 % (3.3-12.3); RBC Red Blood Cell Count 3.68 M/uL (3.86-4.86)
[2018-11-27 23:35] LABS: Vitamin D 1,25-Dihydroxy Total <8 pg/mL (18-72); Vitamin D,1,25-OH2, D2 <8 pg/mL
[2018-11-27 23:38] LABS: Potassium 3.8 mmol/L (3.5-5.1)
[2018-11-28] MEDS: ONDANSETRON 4 MG (ODT) TAB PO PRN (01:16)
[2018-11-28] MEDS: metroNIDAZOLE 500 MG TABLET PO SCH ×4 (01:16→16:58)
[2018-11-28 06:13] LABS: Phosphorus 2.8 mg/dL (2.5-4.9); Potassium 3.8 mmol/L (3.5-5.1)
[2018-11-28 06:18] VITALS: BMI 27.3
[2018-11-28] MEDS: INSULIN -REGULAR HUMAN 50 UNIT/0.5 ML ML SQ SCH ×4 (07:30→20:23)
[2018-11-28] MEDS: HYDRALAZINE HCL 25 MG TABLET PO SCH ×3 (09:03→21:59)
[2018-11-28] MEDS: AMLODIPINE 10 MG TAB PO SCH (09:03)
[2018-11-28] MEDS: CIPROFLOXACIN HCL 250 MG TAB PO SCH ×2 (09:03→20:24)
[2018-11-28] MEDS: METOCLOPRAMIDE 5 MG TAB PO SCH ×3 (09:04→20:23)
[2018-11-28] MEDS: ENOXAPARIN 30 MG/0.3 ML SQ SCH (09:04)
[2018-11-28] MEDS: MIDODRINE HCL 5 MG TABLET PO SCH ×2 (09:04→20:23)
[2018-11-28] MEDS: CARVEDILOL 6.25 MG TAB PO SCH ×2 (11:13→21:59)
--- NOTE | 2018-11-28 12:05 | P.PN ---
Date of Service: 11/28/18 Patient seen and examined at bedside with RN. Chart reviewed. Patient was switched over to a different physician for further care. Patient has been admitted to the hospital for nausea vomiting and syncopal episode. Patient does have history of long standing uncontrolled diabetes and noncompliance with medication and diet and exercise. Patient's nausea vomiting was related to gastroparesis and has been on Reglan here in the hospital. Patient's syncopal episode is most likely secondary to orthostatics hypotension secondary to autonomic dysfunction secondary to her diabetes. Patient was seen at bedside and was educated extensively regarding her disease process and the need for her to be physically active and participate in her care. Patient seems to be very debilitated and not wanting to participate in her care. There appears to be a secondary gain for drug abuse here. Patient was again educated extensively regarding taking medication as prescribed by her primary care provider and taking medication for her disease process that helps get her better. Patient and mom at bedside made aware that patient needs to get up and out of bed physical therapy at least twice daily to help with her orthostatic on her nausea vomiting. Patient was felt to a bedside chair yesterday and was told that we will be doing the same today as well. Yesterday when patient was sitting up in chair she did well had no nausea vomiting and was having no syncopal episode at that time. We will continue with the treatment plan as ordered by Dr. Navarrete. Will start Midrin for her orthostatics hypertension and will continue her Reglan here in the hospital. Patient was also educated on a different physician that will be taking over her care tomorrow morning. Will go over the care with Dr. Arana.
[2018-11-29] MEDS: metroNIDAZOLE 500 MG TABLET PO SCH ×2 (00:24→05:01)
[2018-11-29 02:36] LABS: HBsAG Nonreactive (Nonreactive)
--- NOTE | 2018-11-29 02:40 | PN ---
Date of Progress Note: 11/28/2018 Chief Complaint: Acute kidney injury on chronic kidney disease. The patient has chronic kidney disease stage 4. Renal function has declined. The patient is admitted for gastroparesis, nausea, vomiting, abdominal discomfort. Review of Systems: Denies fever, chills. Physical Examination: Lungs: Clear to auscultation bilaterally. Heart: S1, S2. Abdomen: Soft, benign. Extremities: There is slight edema. Impression And Plan: 1. Acute on chronic kidney disease, accelerated chronic kidney disease. Monitor renal function. Adjust medication for blood pressure to avoid RUBEN inhibitor because of acute kidney injury. 2. Continue hydration, monitor fluid balance. The patient has nausea, vomiting. Continue treatment for gastroparesis with Reglan. 3. Diabetes mellitus. Continue insulin. 4. The patient is not a candidate for RUBEN inhibitor because of acute kidney injury. I spent total 36 min including 25 min to coordinate care plan. TAMIKA/KERI Voice ID: [id number] Report ID: [id number] DAYANARA
[2018-11-29] MEDS: ONDANSETRON 4 MG (ODT) TAB PO PRN (03:16)
[2018-11-29] MEDS: INSULIN -REGULAR HUMAN 50 UNIT/0.5 ML ML SQ SCH (07:30)
[2018-11-29] MEDS: METOCLOPRAMIDE 5 MG TAB PO SCH (08:53)
[2018-11-29] MEDS: CIPROFLOXACIN HCL 250 MG TAB PO SCH (08:53)
[2018-11-29] MEDS: MIDODRINE HCL 5 MG TABLET PO SCH (08:53)
[2018-11-29] MEDS: AMLODIPINE 10 MG TAB PO SCH (08:54)
[2018-11-29] MEDS: CARVEDILOL 6.25 MG TAB PO SCH (08:54)
[2018-11-29] MEDS: HYDRALAZINE HCL 25 MG TABLET PO SCH (08:54)
[2018-11-29] MEDS: ENOXAPARIN 30 MG/0.3 ML SQ SCH (08:55)
[2018-11-29 10:06] VITALS: O2SAT 98
--- NOTE | 2018-11-29 13:51 | P.DS ---
Admission Date: 11/24/18 Discharge Date: 11/29/18 Primary Care Provider: Dr. Dahl Disposition: ROUTINE DISCHARGE Discharge Condition: GOOD Reason for Admission: Syncope Consultations: Nephrology-Dr. Boothe Procedures: Brain MRI: COMPARISON: Ct Stroke Brain Wo Cont dated 11/22/2018; Head Brain Wo Cont dated TECHNIQUE: Multi-sequence, multiplanar MR imaging of the brain was performed without contrast. FINDINGS: No intracranial hemorrhage, hydrocephalus or extra-axial fluid collections.Moderate T2/FLAIR hyperintensities in the periventricular region is seen. No edema or shift of midline structures. No findings to suspect brain mass. DWI is negative for acute CVA. Midline structures are normally formed. Mastoid air cells and paranasal sinuses are clear. IMPRESSION: Negative for acute CVA or other acute intracranial abnormality. Carotid doppler: FINDINGS: Normal high resistance waveforms are noted in both external carotid arteries. The common carotid arteries and internal carotid arteries show normal low resistance waveforms. Mild plaquing changes are present. On visual inspection there is no significant luminal narrowing. Peak systolic and end diastolic velocity values and the ICA/ CCA ratios are in the non-hemodynamically significant range. These values are similar to the 2017 study. Antegrade flow seen in both vertebral arteries. Velocity values and ratios were recorded and are retained in the patient's imaging records. IMPRESSION: Minimal atherosclerotic changes stable from 2017 exam. No evidence of a hemodynamically significant stenosis. Renal US: COMPARISON: Renal Ultrasound-Complete dated 09/02/2017 FINDINGS: Both kidneys are normal in size, shape and echotexture. The right kidney measures 9.0 x 5.7 x 5.5 cm. No hydronephrosis, focal mass or perinephric fluid. The left kidney measures 10.2 x 6.5 x 5.0 cm. No hydronephrosis, focal mass or perinephric fluid. The urinary bladder is incompletely distended without gross abnormality seen. IMPRESSION: Unremarkable renal sonogram. ECHO: EF 60% LEFT VENTRICULAR WALL MOTION: NORMAL. DOPPLER/COLOR FLOW: NO AORTIC STENOSIS OR AORTIC REGURGITATION. TRACE OF TRICUSPID REGURGITATION. NORMAL RIGHT VENTRICULAR SYSTOLIC PRESSURE. COMMENTS: NORMAL LEFT VENTRICLAR EJECTION FRACTION. MILD AORTIC LEAFLET THICKENING WITH NO AORTIC STENOSIS OR AORTIC REGURGITATION. TRACE OF TRICUSPID REGURGITATION. Medical problem list: Syncope likely related to uncontrolled hypertension Diabetes mellitus type 2 on insulin Chronic renal disease, stage IV Chronic pain Diabetic gastroparesis Depression with anxiety Brief History of Present Illness: 43-year-old female presented emergency room with syncope. Patient with longstanding diabetes, diabetic gastroparesis, hypertension, and chronic pain. Hospital Course: Patient presented to the emergency room with syncope. Patient with hypertension. Patient appears not compliant with her medications. Medications were adjusted. MRI brain negative. Carotid Doppler negative. New medications included Norvasc, hydralazine and carvedilol. Blood pressures remain stable. At discharge she will continue with amlodipine 10 mg daily, hydralazine 25 mg 1 pill 3 times a day, and carvedilol 6.25 mg 1 pill twice daily. Recommend to maintain blood pressures less 150/80. Compliance addressed in detail with the patient. Further adjustment in medication can be done by her PCP or Nephrology. Patient was started on midodrine due to some orthostatic hypotension. Patient did well with midodrine. At discharge she will continue with midodrine 5 mg daily. She is to maintain systolic blood pressure of above 100. Patient with chronic renal disease, stage IV. This remained stable. Patient seen and evaluated by nephrology. No further intervention was required. Nephrology noted that the patient may require dialysis in the near future especially if the patient remains non compliant with medication and follow up. Recommend to recheck lab-BMP in 1 week to follow her progress. Recommend no further use of nonsteroidal anti-inflammatories. Future medications will need to be renally dosed. Patient with diabetes type 2, insulin-dependent. This remained stable during her stay. At discharge she will continue with Toujeo 10 units subcu daily. Recommend maintain blood sugars less 140 fasting and less than 200 after meals. Further adjustment can be done by her PCP. Recommend to establish care with endocrinology as an outpatient to further monitor and address. Patient with diabetic gastroparesis. This remained stable. Patient was given Reglan. Patient seems to respond well. Patient has been worked up in the past by GI. Patient will continue with Reglan 5 mg daily. Patient is seen by GI as an outpatient. Recommend to follow up with GI to further address. Patient with chronic pain. Possible abuse of narcotics was noted. Nurses report that her PCP called to the hospital indicating that they will no longer refill any pain medication. Recommend for patient to establish care with pain specialist. Recommend no further use of narcotics. Patient would benefit with continued extensive counseling on narcotic use. This can be further addressed and monitored by her PCP. Vital Signs/Physical Exam: Temp Pulse Resp BP Pulse Ox 98.3 F 83 16 129/69 99 11/29/18 08:00 11/29/18 08:54 11/29/18 08:00 11/29/18 08:54 11/29/18 08:00 General: Alert, In no apparent distress, Oriented x3, Cooperative HEENT: Atraumatic Neck: Supple Respiratory: Clear to auscultation bilaterally, Normal air movement Cardiovascular: Normal pulses, Regular rate/rhythm Gastrointestinal: Normal bowel sounds, Soft and benign, Non-distended, No tenderness, No masses, No rebound, No guarding Neurological: Normal speech, Normal strength at 5/5 x4 extr, Normal tone Laboratory Data at Discharge: WBC 8.2 K/uL (4.3-10.9) D 11/27/18 22:56 Hgb 11.1 g/dL (12.0-15.0) L 11/27/18 22:56 Hct 33.7 % (36.0-45.0) L 11/27/18 22:56 Plt Count 281 K/uL (152-406) 11/27/18 22:56 PT 10.7 SECONDS (9.5-12.5) 11/22/18 17:21 INR 0.90 11/22/18 17:21 APTT 31.1 SECONDS (24.3-36.9) 11/22/18 17:21 Sodium 142 mmol/L (136-145) 11/28/18 05:11 Potassium 3.8 mmol/L (3.5-5.1) 11/28/18 05:11 BUN 23 mg/dL (7-18) H 11/28/18 05:11 Creatinine 3.76 mg/dL (0.55-1.3) H 11/28/18 05:11 Glucose 123 mg/dL (74-106) H 11/28/18 05:11 Uric Acid 5.5 mg/dL (2.6-6.0) 11/24/18 07:00 Phosphorus 2.8 mg/dL (2.5-4.9) 11/28/18 05:11 Magnesium 1.8 mg/dL (1.8-2.4) 11/22/18 15:43 Total Bilirubin 0.4 mg/dL (0.2-1.0) 11/23/18 07:05 AST 10 U/L (15-37) L 11/23/18 07:05 ALT 10 U/L (12-78) L 11/23/18 07:05 Alkaline Phosphatase 61 U/L (45-117) 11/23/18 07:05 Troponin I < 0.02 ng/mL (0.0-0.045) 11/24/18 11:27 Lipase 90 U/L (73-393) 11/22/18 15:43 Home Medications: Insulin Glargine,Hum.rec.anlog [Todavid Solyuliana] 10 units SQ DAILY 12/22/17 Amlodipine [Norvasc*] 10 mg PO DAILY #30 tab 11/26/18 Carvedilol [Coreg*] 6.25 mg PO BID #60 tab 11/26/18 Hydralazine [Apresoline*] 25 mg PO TID #90 tab 11/26/18 Metoclopramide HCl 1 tab PO DAILY PRN #30 tablet 11/26/18 Midodrine HCl [Proamatine*] 5 mg PO BID #60 tab 11/29/18 New Medications: Amlodipine [Norvasc*] 10 mg PO DAILY #30 tab Carvedilol [Coreg*] 6.25 mg PO BID #60 tab Hydralazine [Apresoline*] 25 mg PO TID #90 tab Metoclopramide HCl 1 tab PO DAILY PRN #30 tablet PRN Reason: Nausea / Vomiting Midodrine HCl [Proamatine*] 5 mg PO BID #60 tab Patient Discharge Instructions: Please follow up with the primary care physician in 2- 3 days. Please follow up with Nephrology in 2 weeks for follow up of renal workup started here in the hospital. New medications: Amlodipine, hydralazine, carvedilol: These are all blood pressure medications to help her blood pressure under better control. 1. Patient with hypertension. New medications include amlodipine 10 mg daily, hydralazine 25 mg 1 pill 3 times a day, and carvedilol 6.25 mg 1 pill twice daily. Recommend to maintain blood pressures less 150/80. Further adjustment can be done by her PCP or nephrology. 2. Patient with chronic renal disease, stage IV. Patient seen by nephrology. Recommend to follow up with nephrology in 1-2 weeks to follow up this hospitalization. Recommend to recheck lab-BMP in 1 week. Recommend no further use of nonsteroidal anti-inflammatories. Future medications will need to be renally dosed. 3. Patient with diabetes type 2, insulin-dependent. At discharge she will continue with Toujeo 10 units subcu daily. Recommend maintain blood sugars less 140 fasting and less than 200 after meals. Further adjustment can be done by her PCP. Recommend to establish care with endocrinology as an outpatient to further monitor and address. 4. Patient with orthostatics hypotension. Patient started on midodrine. Patient will continue with midodrine 5 mg daily. Recommend to monitor blood pressures daily. Patient is to hold medication if blood pressures above 150 systolic. 5. Patient with diabetic gastroparesis. Patient will continue with Reglan 5 mg daily. Patient is seen by GI as an outpatient. Recommend to follow up with GI to further address. 6. Patient with chronic pain. Recommend for patient to establish care with pain specialist. Recommend no further use of narcotics. May need extensive counseling on narcotic use. This can be further addressed and monitored by her PCP. Diet: ADA Activity: Ad abdias Followup: Nael Beckman MD [ACTIVE - CAN ADMIT] - 1-2 Weeks Homa Martinez MD [OUTSIDE PHYSICIAN] - Time spent managing pt's care (in minutes): 55
[2018-11-29 20:15] LABS: P-ANCA Anti-Myeloperoxidase Ab <1.0 AI (<1.0)
--- NOTE | 2018-11-30 04:29 | PN ---
Date of Progress Note: 11/29/2018 Chief Complaint: Ykgup-fq-esgpwhv kidney injury. The patient has chronic kidney disease stage 4. Renal function has declined due to hypovolemia, debora l hypoperfusion. The patient completed IV fluids. She is admitted for abdominal pain, nausea, vomit ing, abdominal discomforts. She is treated with Reglan for diabetic gastroparesis. Review of Systems: Denies fever, chills. Denies melena, hematemesis. Nausea is controlled. Physical Examination: Lungs: Clear to auscultation bilaterally. Heart: S1, S2. No pericardial friction rub. Abdomen: Soft, benign. Extremities: Slight edema. Impression And Plan: 1.Tfquk-sp-ecrwtik kidney disease, accelerated chronic kidney disease. Monitor renal function. Adj ust medication. Avoid RUBEN inhibitor because of acute kidney injury. Continue renal diet with low-po tassium diet. 2.Volume depletion, renal hypoperfusion, acute kidney injury with prerenal azotemia on chronic kidne y disease advanced stage. The patient was instructed to follow up with Nephrology outpatient as soon as possible. The patient has advanced chronic kidney disease. Renal function has declined due to h ypovolemia and nonoliguric acute tubular necrosis. The patient will avoid nonsteroidal antiinflammat ory medication. She will follow up with institution director outpatient. 3.Diabetes mellitus. Continue insulin. Monitor proteinuria. 4.Diabetic gastroparesis. Continue Reglan and Zofran. 5.Hypertension. The patient is not a candidate for RUBEN inhibitor due to advanced chronic kidney dis ease and acute kidney injury. Monitor electrolytes and avoid nonsteroidal antiinflammatory medication. TAMIKA/KERI Voice ID: [id number] Report ID: [id number]
[2018-12-03 12:12] VITALS: BP 111/55; TEMP 96.6
== END 2018-11-29 12:19 | disposition home or self-care (01) | DRG 683 ==
LOC: ER 15:25 → ERHOLD 18:19 → 4TH 21:03 → OBSVTOIN 11-24 14:48
PROVIDERS: ADMIT Family Medicine; ATTEND Family Medicine
DX: N17.0 Acute kidney failure with tubular necrosis (principal); E87.2 Acidosis; I12.9 Hypertensive chronic kidney disease with stage 1 through stage 4 chronic kidney disease, or unspecified chronic kidney disease; N18.5 Chronic kidney disease, stage 5; E11.43 Type 2 diabetes mellitus with diabetic autonomic (poly)neuropathy; E11.319 Type 2 diabetes mellitus with unspecified diabetic retinopathy without macular edema; K31.84 Gastroparesis; E11.21 Type 2 diabetes mellitus with diabetic nephropathy; Z79.4 Long term (current) use of insulin; H54.8 Legal blindness, as defined in USA; F32.9 Major depressive disorder, single episode, unspecified; F41.9 Anxiety disorder, unspecified; F17.210 Nicotine dependence, cigarettes, uncomplicated; K21.9 Gastro-esophageal reflux disease without esophagitis; Z85.850 Personal history of malignant neoplasm of thyroid; E78.5 Hyperlipidemia, unspecified; Z86.73 Personal history of transient ischemic attack (TIA), and cerebral infarction without residual deficits; J42 Unspecified chronic bronchitis; M51.36 Other intervertebral disc degeneration, lumbar region; E11.40 Type 2 diabetes mellitus with diabetic neuropathy, unspecified; E03.9 Hypothyroidism, unspecified; R80.9 Proteinuria, unspecified; E11.22 Type 2 diabetes mellitus with diabetic chronic kidney disease; Z91.14 Patient's other noncompliance with medication regimen; Z91.19 Patient's noncompliance with other medical treatment and regimen; I95.1 Orthostatic hypotension; E86.1 Hypovolemia
CPT/HCPCS: 36415; 70450; 70551; 71045; 76770; 80048; 80053; 80069; 80076; 81003; 81025; 82550; 82553; 82652; 82947; 82962; 83520; 83690; 83735; 84145; 84484; 84550; 85025; 85610; 85730; 86021; 86038; 86160; 86225; 86317; 86334; 86430; 86704; 86706; 87040; 87086; 87088; 87340; 87389; 87522; 90670; 93005; 93306; 93880; 94760; 96360; 96361; 97110; 97116; 97162; 97530; 99285; G0009; G0378; J1650; J2270; J2405; J2765; J7030

== ENCOUNTER 2019-03-13 10:23 | Inpatient (IN) | payer OTHER ==
--- OUTSIDE RECORDS SUMMARY | 2019-03-13 10:25 | XMS REPORT | Clinical Summary ---
:1975 Author Organization [facility] Address [address] [place] [address] Care Team Providers Name Role Phone Unavailable [...] Not on file Results Not on fileafter 03/12/2018 Insurance Payer Benefit Plan / Group Subscriber ID Type Phone Address [employer] - MEDICARE UNITED MEDICARE HMO xxxxxxxxx [facility] Advance Directives For more information, please contact:[address] [phone] Code Status Date Activated Date Inactivated Comments Full Code 03/14/2017 8:30 PM 03/20/2017 12:11 PM This code status was determined by: Patient
--- OUTSIDE RECORDS SUMMARY | 2019-03-13 10:27 | XMS REPORT | Summary of Care ---
:1975 Author Organization [facility] Address [address] [place] [address]- Encounter HQ Justinntr_mariely(FIN) [id number] Date(s): 05/24/18 - 05/24/[address] [phone] Encounter Diagnosis Type 2 diabetes mellitus without complications (Final) - 05/27/18 Gastroparesis (Final) - Gastro-esophageal reflux disease without esophagitis (Final) - Nausea with vomiting, unspecified (Final) - Functional dyspepsia (Final) - Discharge Disposition: Home or Self Care Attending Physician: Homa Martinez MD Referring Physician: Homa Martinez MD Vital Signs No data available for this section Problem List Condition Effective Dates Status Health Status Informant Anxiety(Confirmed) Resolved COPD (chronic obstructive pulmonary Resolved disease) with acute bronchitis(Confirmed) Depression(Confirmed) Resolved Diabetes(Confirmed) Resolved ESRD (end stage renal Resolved disease)(Confirmed) H/O: stroke(Confirmed) Resolved H/O thyroidectomy(Confirmed) Resolved Neuropathy(Confirmed) Resolved Allergies, Adverse Reactions, Alerts No Known Medication Allergies Medications No data available for this section Results Most recent to oldest [Reference Range]: 1 U Preg [Negative] Negative (05/24/18 10:11 AM) Immunizations No data available for this section Procedures Procedure Date Related Diagnosis Body Site Status Caesarean section Completed Cholecystectomy Completed Laser surgery Completed Repair of ingrown toenail Completed Thyroidectomy Completed Tonsillectomy Completed Social History Social History Type Response Substance Abuse Use: Current. Type: Marijuana. IV drug use: No. Alcohol Past, Alcohol use interferes with work or home: No. Smoking Status Current every day smoker; Previous treatment: None; Exposure to Tobacco Smoke None; Cigarette Smoking Last 365 Days No; Reg Smoking Cessation Counseling No entered on: 06/25/18 Assessment and Plan No data available for this section
--- OUTSIDE RECORDS SUMMARY | 2019-03-13 10:27 | XMS REPORT | Summary of Care ---
:1975 Author Organization [facility] Address [facility] [place], [place] [address]- Encounter HQ Justinntr_mariely(FIN) [id number] Date(s): 05/18/18 - 05/24/[address] [address]- Attending Physician: Homa Martinez MD Referring Physician: [...] No data available for this section Results No data available for this section Immunizations No data available for this section [...]
--- OUTSIDE RECORDS SUMMARY | 2019-03-13 10:27 | XMS REPORT | Summary of Care ---
:1975 Author Organization [facility] Address [address] [place] [address]- Encounter HQ Justinntr_mariely(FIN) [id number] Date(s): 05/24/18 - 05/24/[address] [address] [phone] Encounter Diagnosis Type 2 diabetes mellitus without [...]
--- OUTSIDE RECORDS SUMMARY | 2019-03-13 10:27 | XMS REPORT | Summary of Care ---
:1975 Author Organization [facility] Address [address] [place] [address]- Encounter HQ Justinntr_mariely(FIN) [id number] Date(s): 05/24/18 - 05/24/[address] [address] [phone] Encounter Diagnosis Type 2 diabetes mellitus without [...]
--- OUTSIDE RECORDS SUMMARY | 2019-03-13 10:27 | XMS REPORT | Summary of Care ---
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) - Personal history of transient ischemic attack (TIA), and cerebral infarction without residual deficits (Final) - Major depressive disorder, single episode, unspecified (Final) - Discharge Disposition: Home or Self Care Attending Physician: Homa Martinez MD Referring Physician: Homa Martinez MD Vital Signs Most recent to oldest 1 2 3 [Reference Range]: Height 162.56 cm (06/22/18 2:28 PM) Temperature Oral [96.4-99.1 98.1 DegF DegF] (06/22/18 3:10 PM) Blood Pressure [90-140/60-90 145/75 mmHg 163/71 mmHg 179/92 mmHg mmHg] *HI* *HI* *HI* (06/25/18 1:30 PM) (06/25/18 1:00 PM) (06/25/18 12:30 PM) Respiratory Rate [14-20 BRMIN] 10 BRMIN 14 BRMIN 12 BRMIN *LOW* (06/25/18 1:00 PM) *LOW* (06/25/18 1:30 PM) (06/25/18 12:30 PM) Peripheral Pulse Rate [60-100 87 bpm bpm] (06/22/18 3:10 PM) Weight 72.727 kg (06/22/18 2:28 PM) Body Mass Index 27.52 m2 (06/22/18 2:28 PM) Problem List Condition Effective Dates Status Health Status Informant Anxiety(Confirmed) Resolved COPD (chronic obstructive pulmonary Resolved disease) with acute bronchitis(Confirmed) Depression(Confirmed) Resolved Diabetes(Confirmed) Resolved ESRD (end stage renal Resolved disease)(Confirmed) H/O: stroke(Confirmed) Resolved H/O thyroidectomy(Confirmed) Resolved Neuropathy(Confirmed) Resolved Allergies, Adverse Reactions, Alerts No Known Medication Allergies Medications hydromorphone 0.5 mg, 0.5 mL, Route: IVP, Drug form: INJ, PRN, Dosing Weight 72.727, kg, PRN Pain Score 1-5, Priority: STAT, Start date: 06/25/18 11:48:00 FLOWER GRADER, Duration: 2 doses or times, Stop date: Limited # of times Notes: Same as: Dilaudid Start Date: 06/25/18 Stop Date: 06/25/18 Status: Discontinuedlisinopril 10 mg oral tablet 10 mg=1 tab, PO, Daily, # 90 tab, 1 Refill(s) Start Date: 06/25/18 Status: Orderedmetoprolol 5 mg/5 ml INJ 5 mg, 5 mL, Route: IVP, Drug form: INJ, Q6H, Dosing Weight 72.727, kg, Start date: 06/25/18 18:00:00CST, Duration: 30 day, Stop date: 07/25/18 12:00:00 FLOWER GRADER Notes: (Same as: Lopressor)Push over 2 minutes Start Date: 06/25/18 Stop Date: 06/25/18 Status: Discontinuedmetoprolol 5 mg/5 ml INJ 5 mg, 5 mL, Route: IVP, Drug form: INJ, PRN, Dosing Weight 72.727, kg, PRN Hypertension, Start date:06/25/18 12:34:00 FLOWER GRADER, Duration: 30 day, Stop date: 05/04 12:33:00 FLOWER GRADER Notes: (Same as: Lopressor)Push over 2 minutes Start Date: 06/25/18 Stop Date: 06/25/18 Status: Discontinuedmorphine Sulfate 2 mg, Route: IVP, ONCE, Dosing Weight 72.727, kg, Start date: 06/25/18 11:21:00 FLOWER GRADER, Stop date: 06/25/18 11:21:00 FLOWER GRADER Start Date: 06/25/18 Stop Date: 06/25/18 Status: CompletedSodium Chloride 0.9% IV 1,000 mL 1,000 mL, Rate: 25 ml/hr, Infuse over: 40 hr, Route: IV, Dosing Weight 72.727 kg , Total Volume: 1,000, Start date: 06/25/18 9:36:00 FLOWER GRADER, Duration: 30 day, Stop date: 07/25/18 9:35:00 FLOWER GRADER, 1.83, m2 Start Date: 06/25/18 Stop Date: 06/25/18 Status: DiscontinuedToujeo Max SoloStar 300 units/mL subcutaneous solution 15 unit, SUB-Q, BID Start Date: 06/22/18 Status: OrderedUnknown Home Medication Refill(s) 0 Start Date: 06/22/18 Status: Ordered Results Most recent to oldest [Reference Range]: 1 eGFR 21 mL/min/1.73m2 1 *NA* (06/22/18 2:55 PM) AGAP [10.0-20.0 mEq/L] 13.7 mEq/L (06/22/18 2:55 PM) BUN [7-22 mg/dL] 26 mg/dL *HI* (06/22/18 2:55 PM) Calcium Lvl [8.5-10.5 mg/dL] 7.7 mg/dL *LOW* (06/22/18 2:55 PM) Chloride Lvl [95-109 mEq/L] 107 mEq/L (06/22/18 2:55 PM) CO2 [24-32 mEq/L] 24 mEq/L (06/22/18 2:55 PM) Creatinine Lvl [0.50-1.40 mg/dL] 2.68 mg/dL *HI* (06/22/18 2:55 PM) Glucose Lvl [70-99 mg/dL] 428 mg/dL 2 *CRIT* (06/22/18 2:55 PM) Potassium Lvl [3.5-5.1 mEq/L] 3.7 mEq/L (06/22/18 2:55 PM) Sodium Lvl [135-145 mEq/L] 141 mEq/L (06/22/18 2:55 PM) S Preg [Negative] Negative *NA* (06/22/18 2:55 PM) 1Result Comment: The eGFR is calculated using the CKD-EPI formula. In most young , healthy individualsthe eGFR will be >90 mL/min/1.73m2. The eGFR declines with age. An eGFR of 60-89 may be normal insome populations, particularly the elderly, for whom the CKD-EPI formula has not been extensively validated. Use of the eGFR is not recommended in the following populations: Individuals with unstable creatinine concentrations, including patients and those with serious co-morbid conditions. Patients with extremes in muscle mass or diet. The data above are obtained from the National Kidney Disease Education Program ( NKDEP) which additionally recommends that when the eGFR is used in patients with extremes of body mass index for purposesof drug dosing, the eGFR should be multiplied by the estimated BMI.2Result Comment: Critical Result(s) called to Betty Dukes at _06/22/2018 15:37 by_cg. Read back OK. Immunizations No data available for this section [...]
--- OUTSIDE RECORDS SUMMARY | 2019-03-13 10:27 | XMS REPORT | Continuity of Care Document ---
:1975 Author Organization [email or web address] Care Team Providers Name Role Phone [email or web address] Unavailable Unavailable Problems Problem Status Onset Classification Date Comments Source Date Reported Unspecified chronic 01/12/2019 [facility] gastritis without 018 bleeding EGD Active [facility] 018 Nig[place] K31.84, R11.2, Active [facility] K21.0 018 Nig[place] GASTRIC EMPTYING Active [facility] 018 [place] UNK Active [facility] 018 [place] Nephrotic syndrome Active Finding 09/04/[address] [...] 09/04/[address] [facility] [place] Type 2 diabetes 01/12/2019 [facility] mellitus without complications Gastroparesis 12/12/2018 [facility] Gastro-esophageal 01/12/2019 [facility] reflux disease without esophagitis Nausea with 01/12/2019 [facility] vomiting, unspecified Functional 12/12/2018 [facility] dyspepsia Anxiety [facility] Resolved Problem 01/12/2019 bronchitis(Confirme Calista d) [facility] Depression Resolved Problem [facility] Diabetes [facility]olved Problem [facility] ESRD (Confirmed) Resolved Problem [facility]/12[facility] H/O: stroke Resolved Problem [facility]/12[facility]O thyroidectomy Resolved Problem [facility]/12[facility] Neuropathy Resolved Problem [facility]/12[facility] Personal history of 01/12/2019 [facility] nicotine dependence [facility] use of 01/12/2019 [facility] insulin Personal history of 01/12/2019 [facility] transient ischemic attack , and cerebral infarction without residual deficits Major depressive 01/12/2019 [facility] disorder, single episode, unspecified Chest pain Inactive Finding 09/04/[address] [facility] [place] Bacterial pneumonia Active Finding 09/04/[address] [facility] [place] Medications Medication Details Route Status Patient Ordering Order Source Instructions Provider Date Metoprolol 5 mg, 5 Inactive Calista mL, Route: 2018 IVP, Drug form: INJ, Q6H, Dosing Weight 72.727, kg, Start date: 06/25/18 18:00:00 TELEPHONE RECORDER, Duration: 30 day, Stop date: 07/25/18 12:00:00 CSTNotes: (Same as: Lopressor) Push over 2 minutes Metoprolol 5 mg, 5 Inactive Calista mL, Route: 2018 IVP, Drug form: INJ, PRN, Dosing Weight 72.727, kg, PRN Hypertensi on, Start date: 06/25/18 12:34:00 TELEPHONE RECORDER, Duration: 30 day, Stop date: 07/25/18 12:33:00 CSTNotes: (Same as: Lopressor) Push over 2 minutes Hydromorphone 0.5 mg, Inactive [facility] 0.5 mL, 2018 Route: IVP, Drug form: INJ, PRN, Dosing Weight 72.727, kg, PRN Pain Score 1-5, Priority: STAT, Start date: 06/25/18 11:48:00 TELEPHONE RECORDER, Duration: 2 doses or times, Stop date: Limited # of timesNotes : Same as: Dilaudid Morphine 2 mg, Inactive [facility] Route: 2018 IVP, ONCE, Dosing Weight 72.727, kg, Start date: 06/25/18 11:21:00 TELEPHONE RECORDER, Stop date: 06/25/18 11:21:00 TELEPHONE RECORDER lisinopril 10 mg 10 mg=1 Active [facility] oral tablet tab, PO, 2018 Daily, # 90 tab, 1 Refill(s) Sodium Chloride 1,000 mL, Inactive [facility] 0.9% IV 1,000 mL Rate: 25 2018 ml/hr, Infuse over: 40 hr, Route: IV, Dosing Weight 72.727 kg, Total Volume: 1,000, Start date: 06/25/18 9:36:00 TELEPHONE RECORDER, Duration: 30 day, Stop date: 07/25/18 9:35:00 TELEPHONE RECORDER, 1.83, m2 Unknown Home Refill(s) Active [facility] Medication 0 2018 3 ML Insulin 15 unit, Active [facility] Glargine 300 SUB-Q, BID 2018 UNT/ML Pen Injector [Toujeo] Amlodipine DAILY Active [facility] 2018 [facility] [place] Hydrocodone THREE Active [facility] Bit/Acetaminophe TIMES A 2018 [facility] n DAY PRN [place] For Pain Levofloxacin DAILY Active [facility] 2017 [facility] [place] Tramadol Hcl TWICE Active [facility] 08/07/ [facility] DAILY PRN 2017 [facility] [place] Lisinopril DAILY Active [facility] 08/06/ [facility] [place] Atorvastatin AT BEDTIME Active [facility] 08/06/ [facility] Calcium 2017 [facility] [place] Ciprofloxacin TWICE Active [facility] 08/06/ [facility] Hcl DAILY 2017 [facility] [place] Neomycin/Polymyx TWICE AURICULAR Active [facility] 08/06/ [facility] in B Sulf/Hc DAILY (OTIC) 2017 [facility] [place] Insulin DAILY PRN Active St. Glargine,Hum.Rec For 2017 [facility] .Anlog glucose [place] Cyclosporine DAILY PRN OPHTHALMIC Active [facility] For 2017 [facility] Abdominal [place] Cramps Prednisolone DAILY PRN OPHTHALMIC Active St. Acetate For Pain 2017 [facility] [place] Metoprolol TWICE Active Prez[facility] St[facility] Tartrate DAILY 2017 [facility] [place] Gabapentin TWICE Active 03/02/ [facility] DAILY [facility] [place] Hydrocodone THREE Active [facility] Bit/Acetaminophe TIMES A 2017 [facility] - n DAY PRN [place] For Pain Insulin SEE Active St. Glargine,Hum.Rec COMMENT 2017 [facility] .Anlog [place] Esomeprazole Mag DAILY Active [facility] Trihydrate 2017 [facility] [place] Fenofibrate DAILY Active [facility] 2017 [facility] [place] Levothyroxine DAILY AT Active 10/14/ [facility] 0600 2017 [facility] [place] Losartan/Hydroch DAILY Active St. lorothiazide 2017 [facility] [place] Prednisol Acet NEEDED Active St. 1% Opth 2017 [facility] [place] Alprazolam DAILY PRN Active [facility] For 2017 [facility] Anxiety [place] Ondansetron Q6H PRN Active St. For Nausea 2017 [facility] / Vomiting [place] Metoclopramide Q6H Active [facility] 10/09/ [facility] Hcl 2016 [facility] [place] Hydrocodone WITH MEALS Active St. Bit/Acetaminophe NEEDED 2015 [facility] - n PRN For [place] Pain Lisinopril/Boron TWICE Active St. chlorothiazide DAILY 2012 [facility] [place] Meloxicam DAILY Active St. 2013 [facility] [place] Metoclopramide BEFORE Active St. MEALS AND 2012 [facility] AT BEDTIME [place] Allergies, Adverse Reactions, Alerts Substance Category Reaction Severity Reaction Status Date Comments Source type Reported No Known NONE Allergy to Active [facility] St[facility] Drug Substance 8 [facility] Allergies [place] No Known Assertion Drug [facility] Medication allergy Allergies Immunizations Immunization Date Given Site Status Last Comments Source Updated Influenza Adult 07/23/[address] [facility] [place] Results Order Name Results Value Reference Date Interpretation Comments Source Range CHEM PANEL eGFR 21 06/22 [facility] Comment: The [facility] eGFR is calculated using the CKD-EPI formula. In most young, healthy individuals the eGFR will be >90 mL/min/1.73m2 . The eGFR declines with age. An eGFR of 60-89 may be normal in some populations, particularly the elderly, for whom the CKD-EPI formula has not been extensively validated. Use of the eGFR is not recommended in the following populations:< br/>
Yoana viduals with unstable creatinine concentration s, including patients and those with serious co-morbid conditions.<b r/>
Patie nts with extremes in muscle mass or diet.

The data above are obtained from the National Kidney Disease Education Program (NKDEP) which additionally recommends that when the eGFR is used in patients with extremes of body mass index for purposes of drug dosing, the eGFR should be multiplied by the estimated BMI. CHEM PANEL CO2 24 24 - 32 06/22 [facility] CHEM PANEL AGAP 13.7 10.0 - 06/22 MH 20.0 [facility] CHEM PANEL Calcium Lvl 7.7 8.5 - 10.5 06/22 [facility] CHEM PANEL BUN 26 7 - 22 06/22 [facility] CHEM PANEL Creatinine 2.68 0.50 - 06/22 Lvl 1.40 [facility] CHEM PANEL Potassium 3.7 3.5 - 5.1 06/22 MH Lvl /2017 [facility] CHEM PANEL Chloride Lvl 107 95 - 109 06/22 [facility] CHEM PANEL Sodium Lvl 141 135 - 145 06/22 [facility] CHEM PANEL Glucose Lvl 428 70 - 99 06/22 Result Comment: [facility] Critical Result(s) called to Betty [facility] at _06/22/2018 15:37 by_cg. Read back OK. ENDOCRINOL S Preg Negative Negative 06/22 OGY *NA* /2017 [facility] (06/22/18 2:55 PM) URINE CHEM U Preg Negative Negative 05/24 (05/24/18 10:11 AM) /2017 [facility] Laboratory Urine Random 545 09/[address] [facility] [address] Studies Total /2017 [facility] Protein [place] Laboratory Urine 8.35 09/[address] [facility] [address] Studies Protein/Crea /2017 [facility] tinine Ratio [place] Laboratory Urine 65.3 09/[address] [facility] [address] Studies Creatinine /2017 [facility] [place] Laboratory Total 0.6 0.3 - 1.2 09/[address] [facility] [address] Studies Bilirubin /2017 [facility] [place] Laboratory Sodium Level 140 135 - 145 09/[address] [facility] [address] Studies /2017 [facility] [place] Laboratory Serum Total 3.7 6.0 - 8.3 09/[address] [facility] [address] Studies Protein /2017 [facility] [place] Laboratory Potassium 3.6 3.6 - 5.0 09/[address] [facility] [address] Studies Level /2017 [facility] [place] Laboratory Phosphorus 3.2 2.5 - 4.3 09/[address] [facility] [address] Studies Level /2017 [facility] [place] Laboratory Glucose 104 65 - 120 09/[address] [facility] [address] Studies Level /2018 [facility] [place] Laboratory Globulin 2.6 2.3 - 3.5 09/[address] [facility] [address] Studies /2018 [facility] [place] Laboratory Estimat 33 90 09/[address] [facility] [address] Studies Glomerular /2017 [facility] Filtration [place] Rate Laboratory Creatinine 1.72 0.44 - 09/[address] [facility] [address] Studies 1.00 [facility] [place] Laboratory Chloride 117 101 - 111 09/[address] [facility] [address] Studies Level /2018 [facility] [place] Laboratory Carbon 19 21 - 31 09/[address] [facility] [address] Studies Dioxide /2017 [facility] Level [place] Laboratory Calcium 7.3 8.5 - 10.5 09/04 [facility]. Studies Level /2017 [facility] [place] Laboratory Blood Urea 13 6 - 20 09/04 [facility]. Studies Nitrogen /2017 [facility] [place] Laboratory Aspartate 16 10 - 42 09/04 [facility]. Studies Amino Transf /2017 [facility] (AST/SGOT) [place] Laboratory Alkaline 73 42 - 121 09/04 [facility]. Studies Phosphatase /2017 [facility] [place] Laboratory Albumin/Glob 0.4 1.1 - 1.8 09/04 [facility]. Studies ulin Ratio /2017 [facility] [place] Laboratory Albumin 1.1 3.2 - 5.5 09/[address] [facility] [address] Studies /2017 [facility] [place] Laboratory Alanine 12 10 - 60 09/04 [facility]. Studies Aminotransfe /2017 [facility] rase [place] (ALT/SGPT) Laboratory Parathyroid 64 12 - 88 09/03 [facility]. Studies Hormone /2017 [facility] (Intact) [place] Laboratory Hemoglobin 8.6 4 - 6.0 09/03 [facility]. Studies A1c /2017 [facility] [place] Laboratory Thyroid 0.75 0.34 - 09/03 [facility]. Studies Stimulating 5.60 /2017 [facility] Hormone [place] (TSH) Laboratory White Blood 9.3 4.3 - 10.9 09/03 [facility]. Studies Count /2017 [facility] [place] Laboratory Red Cell 13.7 12.1 - 09/03 [facility] Studies Distribution 15.2 /2017 [facility] Width [place] Laboratory Red Blood 4.16 3.86 - 09/03 [facility]. Studies Count 4.86 /2017 [facility] [place] Laboratory Platelet 233 152 - 406 09/03 [facility]. Studies Count /2017 [facility] [place] Laboratory Neutrophils 71.9 41.7 - 09/03 [facility]. Studies % 73.7 /2017 [facility] [place] Laboratory Monocytes % 9.6 3.3 - 12.3 09/03 [facility]. Studies /2017 [facility] [place] Laboratory Mean 9.7 7.6 - 11.3 09/03 [facility]. Studies Platelet /2017 [facility] Volume [place] Laboratory Mean 90.1 80 - 100 09/03 [facility]. Studies Corpuscular /2017 [facility] Volume [place] Laboratory Mean 33.3 32.0 - 09/[address] [facility] [address] Studies Corpuscular 36.0 /2017 [facility] Hemoglobin [place] Concent Laboratory Mean 30.0 27.0 - 09/[address] [facility] [address] Studies Corpuscular 35.0 /2017 [facility] Hemoglobin [place] Laboratory Lymphocytes 16.6 15.3 - 09/[address] [facility] [address] Studies % 44.8 /2017 [facility] [place] Laboratory Hemoglobin 12.5 12.0 - 09/[address] [facility] [address] Studies 15.0 /2017 [facility] [place] Laboratory Hematocrit 37.5 36.0 - 09/[address] [facility] [address] Studies 45.0 /2017 [facility] [place] Laboratory Eosinophils 1.4 0 - 4.4 09/[address] [facility] [address] Studies % /2017 [facility] [place] Laboratory Basophils % 0.5 0 - 1.3 09/[address] [facility] [address] Studies /2017 [facility] [place] Laboratory Absolute 6.7 1.8 - 8.0 09/[address] [facility] [address] Studies Neutrophil /2017 [facility] [place] Laboratory Absolute 0.9 0.1 - 1.3 09/[address] [facility] [address] Studies Monocytes /2017 [facility] (CBC) [place] Laboratory Absolute 1.6 0.7 - 4.9 09/[address] [facility] [address] Studies Lymphocytes /2017 [facility] (CBC) [place] Laboratory Absolute 0.1 0 - 0.5 09/[address] [facility] [address] Studies Eosinophils /2017 [facility] (CBC) [place] Laboratory Absolute 0.0 0 - 0.5 09/[address] [facility] [address] Studies Basophils [facility] - (CBC) [place] Laboratory Urine 1.020 09/[address] [facility] [address] Studies Specific /2017 [facility] - Wild Horse [place] Laboratory Urine Urine 09/02 [facility]. Studies /2017 [facility] - Test Test [place] Laboratory Urine pH 6.0 09/[address] [facility] [address] Studies /2017 [facility] [place] Laboratory Urine Total Urine 09/[address] [facility] [address] Studies Protein Total /2017 [facility] Protein [place] Laboratory Urine Urine 09/02 [facility]. Studies Nitrite Nitrite /2017 [facility] [place] Laboratory Urine Urine 09/[address] [facility] [address] Studies Leukocyte Leukocyte /2017 [facility] - Esterase Esterase [place] Laboratory Urine Urine 09/[address] [facility] [address] Studies Ketones Ketones /2017 [facility] [place] Laboratory Urine Urine 09/02 [facility]. Studies Glucose Glucose /2017 [facility] [place] [facility] Urine Blood Urine 09/02 [facility]. Studies Blood /2017 [facility] [place] Laboratory Procalcitoni 0.77 09/[address] [facility] [address] Studies n /2017 [facility] [place] Laboratory Segmented 81 40 - 80 09/01 . Studies Neutrophils /2017 [facility] [place] Laboratory Reactive 2 09/01 . Studies Lymphocytes /2017 [facility] [place] Laboratory Monocytes 6 0 - 10 09/01 St. Studies /2017 [facility] [place] Laboratory Lymphocytes 8 15 - 42 09/01 St. Studies /2017 [facility] [place] Laboratory Blood Blood 09/01 [facility] Studies Morphology Morphology /2017 [facility] - Comment Comment [facility] Band 3 0 - 1 09/01 [facility]. Studies Neutrophils /2017 [facility] [place] Laboratory Direct 0.2 0 - 0.2 09/01 [facility]. Studies Bilirubin /2017 [facility] [place] Laboratory Lipase 12 22 - 51 09/[address] [facility] [address] Studies /2017 [facility] [place] Laboratory Triglyceride 154 35 - 160 08/06 [facility]. Studies s Level /2016 [facility] [place] Laboratory LDL 173 08/06 [facility]. Studies Cholesterol, /2016 [facility] Calculated [place] [facility] HDL 41 29 - 89 08/06 [facility]. Studies Cholesterol /2016 [facility] [place] Laboratory Cholesterol/ 5.98 08/06 [facility]. Studies HDL Ratio /2016 [facility] [place] [facility] Cholesterol 245 08/06 [facility]. Studies Level /2016 [facility] [place] Laboratory Creatine 0.6 0.3 - 4.0 08/05 [facility]. Studies Kinase MB /2016 [facility] [place] [facility] Creatine 29 22 - 269 08/05 [facility]. Studies Kinase /2016 [facility] [place] Laboratory Troponin I <0.03 08/05 [facility]. Studies /2016 [facility] [place] [facility] B-Type 137 08/05 [facility]. Studies Natriuretic /2016 [facility] - Peptide [place] [facility] Magnesium 1.7 1.8 - 2.5 08/05 [facility]. Studies Level /2016 [facility] [place] Laboratory Rapid <0.03 08/05 [facility]. Studies Troponin I /2016 [facility] [place] Laboratory Prothrombin 10.4 9.5 - 12.5 08/[address] Studies Time [facility] [place] Laboratory INR 0.88 08/[address] Studies Internationa [facility] - l Normalized [place] Ratio Laboratory Activated 29.4 24.3 - 08/[address] [facility] [address] Studies Partial 36. [facility] - Thromboplast [place] Time Pathology Reports No Data Provided for This Section Diagnostic Reports Report Value Date Source Stomach emptying NM Patient Name: GIGI CONROY 05/24/2018 [facility] : 1975; Age: 42 years Female MR: [id number] Study: Stomach emptying NM 05/24/2018 10:11 AM CDT CLINICAL INDICATION: - gastroparesis, GERD. COMPARISON: None [...] gastric emptying suggestive of mild gastroparesis. SL: [id number] Consultation Notes No Data Provided for This Section Discharge Summaries No Data Provided for This Section History and Physicals No Data Provided for This Section Vital Signs Vital Sign Value Date Comments Source Systolic (mm Hg) 145 06/25/2018 [facility] Diastolic (mm Hg) 75 06/25/2018 [facility] Respitory Rate 10 06/25/2018 [facility] Respitory Rate 14 06/25/2018 [facility] Systolic (mm Hg) 163 06/25/2018 [facility] Diastolic (mm Hg) 71 06/25/2018 [facility] Systolic (mm Hg) 179 06/25/2018 [facility] Diastolic (mm Hg) 92 06/25/2018 [facility] Respitory Rate 12 06/25/2018 [facility] Temperature Oral (F) 98.1 F 06/22/2018 [facility] Heart Rate 87 06/22/2018 [facility] BMI Calculated 27.52 06/22/2018 [facility] Weight 72.727 06/22/2018 [facility] Height 162.56 cm 06/22/2018 [facility] Height 157.48 cm 05/13/2018 [facility] BMI Calculated 29.33 05/13/2018 [facility] Weight 72.727 05/13/2018 [facility] Heart Rate 65 09/04/[address] [facility] [place] Systolic (mm Hg) 126 09/04/[address] [facility] [place] Diastolic (mm Hg) 61 09/04/[address] [facility] [place] Temperature Oral (F) 96.8 F 09/04/[address] [facility] [place] Respitory Rate 16 09/04/[address] [facility] [place] Height 64 09/03/[address] [facility] [place] Weight 191 09/03/[address] [facility] [place] Encounters Location Location Encounter Encounter Reason Attending ADM DC Status Source Details Type Number For Provider Date Date Visit [facility] [id number] 08/06 08/[address] [facility] [place] [facility] [id number] 09/01 09/[address] [facility] [place] [facility] [facility] [id number] Sri Pio 05/13 05/13 [facility] Outpatient 0 [facility] PreReg [id number] Sri Poi 05/18 05/24 [place] 1 [facility] Outpatient [id number] Sri Pio 05/24 05/25 [place] 2 [facility] Bedded [id number] Sri Pio 06/25 06/25 [place] Outpatient 3 [facility] Procedures Procedure Code Date Perfomer Comments Source Occult Blood 09/04/[address] [facility] - [place] Thorax Wo Con [id number] 09/02/[address] [facility] [facility] - [place] Anaerobic Blood [id number] 09/01/[address] [facility] [facility] Culture 18 - [place] Aerobic Blood [id number] 09/01/[address] [facility] Culture 18 - [place] Chest Single View [id number] 09/01/[address] [facility] [address] [facility] [place] Influenza Type B 09/01/19 [facility] Antigen Screen 18 - [place] Influenza Type A 09/01/19 [facility] Antigen Screen 18 - [place] PLAIN RADIOGRAPHY OF [id number] 08/06/20 [facility] MULT COR ART USING 17 - [place] OTH CONTRAST Chest Single View [id number] 08/05/20 [facility] 17 - [place] Caesarean section [id number] [facility] Cholecystectomy [id number] [facility] Laser surgery [id number] [facility] Repair of ingrown [id number] [facility] toenail Thyroidectomy [id number] [facility] Tonsillectomy [id number] [facility] Caesarean section [id number] [facility] Cholecystectomy [id number] [facility] Laser surgery [id number] [facility] Repair of ingrown [id number] [facility] toenail Thyroidectomy [id number] [facility] Tonsillectomy [id number] [facility] Assessment and Plan No Data Provided for This Section Plan of Care Plan of Care Date Source Instructions 09/04/[address] [facility] [address] [facility] [place] Pneumonia-Adult Instructions 09/04/[address] [facility] [address] [facility] [place] Pneumonia-Adult Social History Social History Date Source Social History TypeResponse 06/25/2018 [facility] Substance Abuse Use: Current. Type: Marijuana. IV drug use: No. Alcohol Past, Alcohol use interferes with work or home: No. Smoking Status Current every day smoker; Previous treatment: None; Exposure to Tobacco Smoke None; Cigarette Smoking Last 365 Days No; Reg Smoking Cessation Counseling No entered on: 06/25/18 Social History TypeResponse 06/25/2018 [facility] Substance Abuse Use: Current. Type: Marijuana. IV drug use: No. Alcohol Past, Alcohol use interferes with work or home: No. Smoking Status Current every day smoker; Previous treatment: None; Exposure to Tobacco Smoke None; Cigarette Smoking Last 365 Days No; Reg Smoking Cessation Counseling No entered on: 06/25/18 Query Response Date Recorded Comment 10/15/1984 [facility] Christietanvir Edmund Suarez Alcohol Use? No September 02, 2017 7:22am CD- Drugs? No September 02, 2017 7:22am Query Response Start Date Stop Date Smoking Status Never smoker October 15, 1984 Family History Value Date Source Query Response Instance Date Recorded Comment 09/04/2017 [facility] Christietanvir Edmund Suarez Nurses notes thyroid problems parents both disease Father September 02, 2017 7:22am Medical History Diabetes Kidney disease Mother September 02, 2017 7:22am Medical History Heart disease Hypertension Other (see notes) Father September 02, 2017 7:22am Name TIEN Watkins Mother August 05, 2017 11:14pm Name Gretel Watkins Father August 05, 2017 11:14pm Nurses notes thyroid problems parents both disease March 07, 2017 10:18pm Name Gretel Watkins March 07, 2017 10:18pm Medical History Heart disease Hypertension Other (see notes) March 02, 2017 9:31pm Advance Directives Order Name Results Value Date Source Advance Directives Advance Directives Advance Directive Response Recorded Date/Time 09/04/2017 [facility] NassarJames Carolanntanvir - Does Patient Have Living Will Erick No September 03, 2017 6:00pm Durable Power of Church 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
--- OUTSIDE RECORDS SUMMARY | 2019-03-13 10:27 | XMS REPORT | Summary of Care ---
:1975 Author Organization [facility] Address [facility] [place], [place] [address]- Encounter HQ Justinntr_mariely(FIN) [id number] Date(s): 05/18/18 - 05/24/[address] [address]- Attending Physician: Homa Martinez MD Referring Physician: [...]
--- OUTSIDE RECORDS SUMMARY | 2019-03-13 10:28 | XMS REPORT | Summary of Care ---
:1975 Author Organization [facility] Address [facility] [place], [place] [address]- Encounter HQ Justinntr_mariely(FIN) [id number] Date(s): 05/18/18 - 05/24/[address] [address]- Attending Physician: Homa Martinez MD Referring Physician: [...]
--- OUTSIDE RECORDS SUMMARY | 2019-03-13 10:28 | XMS REPORT | Summary of Care ---
:1975 Author Organization [facility] Address [id number] [place] [id number]- Encounter HQ Maggy_mariely(FIN) [phone] Date(s): 05/13/18 - 05/13/[address] [phone] Attending Physician: Homa Martinez MD Referring Physician: Homa Martinez MD Vital Signs Most recent to oldest [Reference Range]: 1 Height 157.48 cm (05/13/18 8:48 AM) Weight 72.727 kg (05/13/18 8:48 AM) Body Mass Index 29.33 m2 (05/13/18 8:48 AM) Problem List Condition Effective Dates Status Health Status Informant Anxiety(Confirmed) Resolved COPD (chronic obstructive pulmonary Resolved disease) with acute bronchitis(Confirmed) Depression(Confirmed) Resolved Diabetes(Confirmed) Resolved ESRD (end stage renal Resolved disease)(Confirmed) H/O: stroke(Confirmed) Resolved H/O thyroidectomy(Confirmed) Resolved Neuropathy(Confirmed) Resolved Allergies, Adverse Reactions, Alerts Substance Reaction Severity Status NKDA Active Medications No data available for this section [...]
--- OUTSIDE RECORDS SUMMARY | 2019-03-13 10:28 | XMS REPORT | Summary of Care ---
:1975 Author Organization [facility] Address [id number] [place] [id number]- Encounter HQ Justinntr_mraiely(FIN) [phone] Date(s): 05/24/18 - 05/24/[address] [phone] Encounter Diagnosis Type 2 diabetes mellitus without [...]
--- OUTSIDE RECORDS SUMMARY | 2019-03-13 10:28 | XMS REPORT | Summary of Care ---
:1975 Author Organization [facility] Address [address] [place] [address]- Encounter HQ Justinntr_mariely(FIN) [phone] Date(s): 05/18/18 - 05/24/[address] [address]- Attending Physician: Homa Martinez MD Referring Physician: [...]
--- OUTSIDE RECORDS SUMMARY | 2019-03-13 10:28 | XMS REPORT ---
:1975 [facility] [address] [place] [address] Dr. Soto [address] [place] [address] Care Team Providers Name Role Phone ARON [...] Range Comments FACTOR V LEIDEN (BEAKER) (test qwxr=814) Negative for the R506Q (Factor V Leiden) mutation [id number] (BEAKER) (test Martínez Wang MD (electronic signature) axki=9010) This test is a genotyping assay which [...] [facility] developed [facility]. It has not been cleared or approved by the U.S. Food and Drug Administration (FDA), since FDA approval is not required for clinical use of the test. Validation was done as required by the Clinical Laboratory Improvement Amendments of 1988.POCT-GLUCOSE [id number] 07:28:00 Test Item Value Reference Range Comments POC-GLUCOSE METER (BEAKER) 200 mg/dL 70-110 TESTED AT [facility] [address] (test tzlp=9122) [facility] [address] POCT-GLUCOSE [id number] 21:18:00 Test Item Value Reference Range Comments POC-GLUCOSE METER (BEAKER) 211 mg/dL 70-110 TESTED AT [facility] [address] [place] [address] (test mywu=0020) [facility] [address] PROTEIN, RANDOM [id number] 19:43:00 Test Item Value Reference Range Comments PROTEIN, URINE (BEAKER) (test txxc=7859) 286 mg/dL 0-14 CREATININE, RANDOM [id number] 18:27:00 Test Item Value Reference Range Comments CREATININE URINE (BEAKER) (test mhsp=299) 29.3 mg/dL Reference Range: No NormalsDILUTE SHIRA VIPER VENOM (DRVV)2017-03-19 12:47:00 Test Item Value Reference Range Comments PROTIME (BEAKER) (test 11.3 seconds 11.7-14.7 edop=640) INR (BEAKER) (test ombq=501) 0.8 <=5.9 PARTIAL THROMBOPLASTIN TIME 28.0 seconds 22.5-36.0 (BEAKER) (test osaz=493) DRVV INTERPRETATION (BEAKER) Normal DRVV Results (test pceo=2391) DRVV INTERPRETATION (BEAKER) Normal Hexagonal Phospholipid (test cqlp=471527) [id number] (BEAKER) Martínez Wang MD (electronic (test zeij=3878) signature) DRVV SCREEN RATIO (BEAKER) 0.84 <1.20 (test msfe=3774) Effective 12/20/2013: Test Method ChangeDRVV Screen Ratio, DRVV 1/1 Screen Ratio, DRVV Confirm Ratio,DRVV Normalized Ratio Reference Range: <1.2Protime Reference Range ChangeNew: 11.7-14.7 Previous: 9.8-12.0PTT Reference Range ChangeNew: 22.5-36.0 Previous: 25.8-34.5URINE [id number] 11:40:00 Test Item Value Reference Range Comments CULTURE (BEAKER) (test 20-29,000 col/mL skin lei flrc=6970) POCT-GLUCOSE [id number] 08:33:00 Test Item Value Reference Range Comments POC-GLUCOSE METER (BEAKER) 293 mg/dL 70-110 TESTED AT [address] (test vdvj=0188) [facility] [address] VITAMIN D, [id number] 07:49:00 Test Item Value Reference Range Comments VITAMIN D 25-OH (BEAKER) (test axhv=8705) < ng/mL 13.0-47.8 CBC W/PLT COUNT & AUTO [id number] 05:59:00 Test Item Value Reference Range Comments WHITE BLOOD CELL COUNT (BEAKER) (test vjrh=557) 9.4 K/ L 3.5-10.5 RED BLOOD CELL COUNT (BEAKER) (test jopg=209) 4.16 M/ L 3.93-5.22 HEMOGLOBIN (BEAKER) (test raan=478) 12.7 GM/DL 11.2-15.7 HEMATOCRIT (BEAKER) (test tzox=364) 38.0 % 34.1-44.9 MEAN CORPUSCULAR VOLUME (BEAKER) (test hmqq=033) 91.3 fL 79.4-94.8 MEAN CORPUSCULAR HEMOGLOBIN (BEAKER) (test 30.5 pg 25.6-32.2 kxzw=743) MEAN CORPUSCULAR HEMOGLOBIN CONC (BEAKER) (test 33.4 GM/DL 32.2-35.5 yqrs=316) RED CELL DISTRIBUTION WIDTH (BEAKER) (test 12.6 % 11.7-14.4 xoya=440) PLATELET COUNT (BEAKER) (test fgyt=618) 329 K/CU MM 150-450 MEAN PLATELET VOLUME (BEAKER) (test ialu=698) 10.0 fL 9.4-12.3 NUCLEATED RED BLOOD CELLS (BEAKER) (test 0 /100 WBC 0-0 oqdm=256) NEUTROPHILS RELATIVE PERCENT (BEAKER) (test 68 % dxpj=434) LYMPHOCYTES RELATIVE PERCENT (BEAKER) (test 23 % xxio=283) MONOCYTES RELATIVE PERCENT (BEAKER) (test 7 % vvrf=889) EOSINOPHILS RELATIVE PERCENT (BEAKER) (test 1 % tasn=791) BASOPHILS RELATIVE PERCENT (BEAKER) (test 1 % zfip=138) NEUTROPHILS ABSOLUTE COUNT (BEAKER) (test 6.35 K/ L 1.56-6.13 tnuv=600) LYMPHOCYTES ABSOLUTE COUNT (BEAKER) (test 2.16 K/ L 1.18-3.74 zfrk=978) MONOCYTES ABSOLUTE COUNT (BEAKER) (test 0.68 K/ L 0.24-0.36 afzv=609) EOSINOPHILS ABSOLUTE COUNT (BEAKER) (test 0.10 K/ L 0.04-0.36 ahcb=797) BASOPHILS ABSOLUTE COUNT (BEAKER) (test 0.06 K/ L 0.01-0.08 ncto=421) IMMATURE GRANULOCYTES-RELATIVE PERCENT (BEAKER) 0 % 0-1 (test riha=0411) BASIC METABOLIC [id number] 05:38:00 Test Item Value Reference Range Comments SODIUM (BEAKER) (test 135 meq/L 136-145 abpc=977) POTASSIUM (BEAKER) (test 4.1 meq/L 3.5-5.1 wuyv=760) CHLORIDE (BEAKER) (test 102 meq/L 98-107 cfhg=424) CO2 (BEAKER) (test 25 meq/L 22-29 yxeh=910) BLOOD UREA NITROGEN 12 mg/dL 7-21 (BEAKER) (test tzyy=325) CREATININE (BEAKER) (test 1.99 mg/dL 0.57-1.25 bibm=342) GLUCOSE RANDOM (BEAKER) 290 mg/dL 70-105 (test ldzo=291) CALCIUM (BEAKER) (test 8.7 mg/dL 8.4-10.2 pqgm=784) EGFR (BEAKER) (test 27 mL/min/1.73 sq m ESTIMATED GFR IS NOT eqqr=0475) ACCURATE CREATININE CLEARANCE IN PREDICTING GLOMERULAR FILTRATION RATE. ESTIMATED GFR IS NOT APPLICABLE FOR DIALYSIS PATIENTS. [id number] 05:37:00 Test Item Value Reference Range Comments PHOSPHORUS (BEAKER) (test kquw=732) 4.1 mg/dL 2.3-4.7 [id number] 05:37:00 Test Item Value Reference Range Comments MAGNESIUM (BEAKER) (test udzl=616) 1.7 mg/dL 1.6-2.6 PTH, [id number] 05:34:00 Test Item Value Reference Range Comments PARATHYROID HORMONE INTACT (BEAKER) (test 57.2 pg/mL 8.5-72.5 ffbn=283) Effective 07/04/2014: Reference Range ChangeNew: 8.5-72.5 Previous: 15.0- 90.0CARDIOLIPIN ANTIBODIES, IGG AND [id number] 22:36:00 Test Item Value Reference Range Comments ANTICARDIOLIPIN IGG ANTIBODY (BEAKER) (test < GPL cwfy=952) ANTICARDIOLIPIN IGM ANTIBODY (BEAKER) (test 2.8 MPL hbcc=386) Anticardiolipin IgG Result Interpretation:NEG: <20 GPL; U/mlPOS: >/=20 GPL; U/mlAnticardiolipin IgM Result Interpretation:NEG: <20 MPL; U/mlPOS: >/=20 MPL; U/mlPOCT-GLUCOSE [id number] 21:25:00 Test Item Value Reference Range Comments POC-GLUCOSE METER (BEAKER) 198 mg/dL 70-110 TESTED AT [address] (test azcb=9234) [place] [address] POCT-GLUCOSE [id number] 16:29:00 Test Item Value Reference Range Comments POC-GLUCOSE METER (BEAKER) 296 mg/dL 70-110 TESTED AT [address] (test gnup=4389) [place] [address] ANTI-NUCLEAR ANTIBODY (MARY)2017-03-18 15:30:00 Test Item Value Reference Range Comments ANTI-NUCLEAR ANTIBODY (MARY) (BEAKER) (test Negative Negative xqle=544) HEXAGONAL [id number] 13:21:00 Test Item Value Reference Range Comments HEXAGONAL PHOSPHOLIPID (BEAKER) (test pwsz=0675) Negative POCT-GLUCOSE [id number] 12:15:00 Test Item Value Reference Range Comments POC-GLUCOSE METER (BEAKER) 140 mg/dL 70-110 TESTED AT [address] (test zthv=4006) [place] [id number] PROTEIN C [id number] 11:44:00 Test Item Value Reference Range Comments PROTEIN C ACTIVITY (BEAKER) (test lbcf=860) 155.0 % 70.0-130.0 Effective 12/20/2013: Reference Range Change-Adult onlyNew: 70.0-130.0 Previous : 70.0-140.0See Protein C Antigen.ANTITHROMBIN [id number] 11:43:00 Test Item Value Reference Range Comments ANTITHROMBIN III ACTIVITY (BEAKER) (test cxdo=255) 87.0 % 80.0-120.0 Effective 12/20/2013: Reference Range Change-Adult onlyNew: 80.0-120.0 Previous : 90.0-128.0POCT-GLUCOSE [id number] 08:17:00 Test Item Value Reference Range Comments POC-GLUCOSE METER (BEAKER) 107 mg/dL 70-110 TESTED AT [facility] [address] (test bbbs=8856) [facility] [address] BASIC METABOLIC [id number] 06:32:00 Test Item Value Reference Range Comments SODIUM (BEAKER) (test 136 meq/L 136-145 wjsa=674) POTASSIUM (BEAKER) (test 3.6 meq/L 3.5-5.1 bkkn=752) CHLORIDE (BEAKER) (test 104 meq/L 98-107 edsq=794) CO2 (BEAKER) (test 23 meq/L 22-29 fuun=273) BLOOD UREA NITROGEN 11 mg/dL 7-21 (BEAKER) (test qimw=842) CREATININE (BEAKER) (test 1.68 mg/dL 0.57-1.25 csmb=251) GLUCOSE RANDOM (BEAKER) 99 mg/dL 70-105 (test pyrb=274) CALCIUM (BEAKER) (test 8.4 mg/dL 8.4-10.2 cqvc=191) EGFR (BEAKER) (test 33 mL/min/1.73 sq m ESTIMATED GFR IS NOT gfaf=5881) ACCURATE CREATININE CLEARANCE IN PREDICTING GLOMERULAR FILTRATION RATE. ESTIMATED GFR IS NOT APPLICABLE FOR DIALYSIS PATIENTS. CBC W/PLT COUNT & AUTO [id number] 05:56:00 Test Item Value Reference Range Comments WHITE BLOOD CELL COUNT (BEAKER) (test jvsr=458) 11.7 K/ L 3.5-10.5 RED BLOOD CELL COUNT (BEAKER) (test iili=199) 3.95 M/ L 3.93-5.22 HEMOGLOBIN (BEAKER) (test avzt=552) 12.1 GM/DL 11.2-15.7 HEMATOCRIT (BEAKER) (test jnwt=387) 36.3 % 34.1-44.9 MEAN CORPUSCULAR VOLUME (BEAKER) (test tfgx=995) 91.9 fL 79.4-94.8 MEAN CORPUSCULAR HEMOGLOBIN (BEAKER) (test 30.6 pg 25.6-32.2 ljtw=652) MEAN CORPUSCULAR HEMOGLOBIN CONC (BEAKER) (test 33.3 GM/DL 32.2-35.5 iqcy=222) RED CELL DISTRIBUTION WIDTH (BEAKER) (test 12.7 % 11.7-14.4 xmyt=158) PLATELET COUNT (BEAKER) (test mshv=889) 349 K/CU MM 150-450 MEAN PLATELET VOLUME (BEAKER) (test ahgq=544) 10.8 fL 9.4-12.3 NUCLEATED RED BLOOD CELLS (BEAKER) (test 0 /100 WBC 0-0 gems=063) NEUTROPHILS RELATIVE PERCENT (BEAKER) (test 59 % ilco=012) LYMPHOCYTES RELATIVE PERCENT (BEAKER) (test 31 % bkxa=911) MONOCYTES RELATIVE PERCENT (BEAKER) (test 8 % gapa=538) EOSINOPHILS RELATIVE PERCENT (BEAKER) (test 2 % sgxc=720) BASOPHILS RELATIVE PERCENT (BEAKER) (test 1 % rjmy=584) NEUTROPHILS ABSOLUTE COUNT (BEAKER) (test 6.87 K/ L 1.56-6.13 wyjv=249) LYMPHOCYTES ABSOLUTE COUNT (BEAKER) (test 3.57 K/ L 1.18-3.74 csgv=320) MONOCYTES ABSOLUTE COUNT (BEAKER) (test 0.90 K/ L 0.24-0.36 tvuq=485) EOSINOPHILS ABSOLUTE COUNT (BEAKER) (test 0.24 K/ L 0.04-0.36 inaa=335) BASOPHILS ABSOLUTE COUNT (BEAKER) (test 0.06 K/ L 0.01-0.08 pgkn=849) IMMATURE GRANULOCYTES-RELATIVE PERCENT (BEAKER) 0 % 0-1 (test bpas=9549) POCT-GLUCOSE [id number] 04:32:00 Test Item Value Reference Range Comments POC-GLUCOSE METER (BEAKER) 107 mg/dL 70-110 TESTED AT [address] (test gtek=1224) [facility] [address] POCT-GLUCOSE [id number] 22:21:00 Test Item Value Reference Range Comments POC-GLUCOSE METER (BEAKER) 118 mg/dL 70-110 TESTED AT [address] (test xywy=9835) [facility] [address] POCT-GLUCOSE [id number] 21:22:00 Test Item Value Reference Range Comments POC-GLUCOSE METER (BEAKER) 52 mg/dL 70-110 Notified ARMOND REYNOSO/TESTED AT [facility] (test vdzr=4096) [address] [place] [address] MICROALBUMIN, RANDOM [id number] 17:57:00 Test Item Value Reference Range Comments MICROALBUMIN URINE (BEAKER) (test chyz=6626) > mg/dL Reference Range: No NormalsURINALYSIS W/ [id number] 17:36:00 Test Item Value Reference Range Comments COLOR (BEAKER) (test gctd=918) Light Yellow CLARITY (BEAKER) (test kaob=570) Clear SPECIFIC GRAVITY UA (BEAKER) (test xzhe=371) 1.005 1.001-1.035 PH UA (BEAKER) (test nujg=277) 7.0 5.0-8.0 PROTEIN UA (BEAKER) (test ofzr=238) 300 mg/dL Negative GLUCOSE UA (BEAKER) (test awkb=262) 30 mg/dL Negative KETONES UA (BEAKER) (test fryu=725) Negative Negative BILIRUBIN UA (BEAKER) (test idht=973) Negative Negative BLOOD UA (BEAKER) (test regp=188) Negative Negative NITRITE UA (BEAKER) (test clmj=790) Negative Negative LEUKOCYTE ESTERASE UA (BEAKER) (test hvqw=293) Negative Negative UROBILINOGEN UA (BEAKER) (test wnrx=852) 0.2 mg/dL 0.2-1.0 RBC UA (BEAKER) (test ntkz=656) 1 /HPF WBC UA (BEAKER) (test dmlp=313) < /HPF BACTERIA (BEAKER) (test qebz=847) Rare SQUAMOUS EPITHELIAL (BEAKER) (test ajkn=692) 1 /HPF SOURCE(BEAKER) (test ajkq=6193) Urine, Voided SCREEN, [id number] 17:36:00 Test Item Value Reference Range Comments TEST URINE (BEAKER) (test vpfw=725) Negative CREATININE, RANDOM [id number] 17:35:00 Test Item Value Reference Range Comments CREATININE URINE (BEAKER) (test dlxy=813) 33.9 mg/dL Reference Range: No NormalsSODIUM, RANDOM [id number] 17:35:00 Test Item Value Reference Range Comments SODIUM URINE (BEAKER) (test xiem=109) 63 meq/L Reference Range: No NormalsPOCT-GLUCOSE [id number] 17:34:00 Test Item Value Reference Range Comments POC-GLUCOSE METER (BEAKER) 118 mg/dL 70-110 TESTED AT [address] (test srlk=9406) [facility] [address] POCT-GLUCOSE [id number] 13:28:00 Test Item Value Reference Range Comments POC-GLUCOSE METER (BEAKER) 71 mg/dL 70-110 TESTED AT [address] (test mkkn=9813) [facility] [address] POCT-GLUCOSE [id number] 10:37:00 Test Item Value Reference Range Comments POC-GLUCOSE METER (BEAKER) 144 mg/dL 70-110 TESTED AT [address] (test qcfh=0560) [facility] [address] POCT-GLUCOSE [id number] 07:18:00 Test Item Value Reference Range Comments POC-GLUCOSE METER (BEAKER) 60 mg/dL 70-110 TESTED AT [address] (test yovk=4340) [place] [id number] CBC W/PLT COUNT & AUTO [id number] 05:51:00 Test Item Value Reference Range Comments WHITE BLOOD CELL COUNT (BEAKER) (test jnck=557) 11.4 K/ L 3.5-10.5 RED BLOOD CELL COUNT (BEAKER) (test rhyn=662) 3.81 M/ L 3.93-5.22 HEMOGLOBIN (BEAKER) (test btpy=626) 11.6 GM/DL 11.2-15.7 HEMATOCRIT (BEAKER) (test vlzh=303) 34.5 % 34.1-44.9 MEAN CORPUSCULAR VOLUME (BEAKER) (test fpun=056) 90.6 fL 79.4-94.8 MEAN CORPUSCULAR HEMOGLOBIN (BEAKER) (test 30.4 pg 25.6-32.2 gbkh=583) MEAN CORPUSCULAR HEMOGLOBIN CONC (BEAKER) (test 33.6 GM/DL 32.2-35.5 vudx=439) RED CELL DISTRIBUTION WIDTH (BEAKER) (test 12.6 % 11.7-14.4 uilu=801) PLATELET COUNT (BEAKER) (test xwhy=398) 354 K/CU MM 150-450 MEAN PLATELET VOLUME (BEAKER) (test ujum=453) 10.4 fL 9.4-12.3 NUCLEATED RED BLOOD CELLS (BEAKER) (test 0 /100 WBC 0-0 gwwr=192) NEUTROPHILS RELATIVE PERCENT (BEAKER) (test 72 % btjh=278) LYMPHOCYTES RELATIVE PERCENT (BEAKER) (test 20 % csyw=096) MONOCYTES RELATIVE PERCENT (BEAKER) (test 6 % taqs=123) EOSINOPHILS RELATIVE PERCENT (BEAKER) (test 1 % phma=259) BASOPHILS RELATIVE PERCENT (BEAKER) (test 0 % rovz=206) NEUTROPHILS ABSOLUTE COUNT (BEAKER) (test 8.21 K/ L 1.56-6.13 zhie=775) LYMPHOCYTES ABSOLUTE COUNT (BEAKER) (test 2.31 K/ L 1.18-3.74 jung=012) MONOCYTES ABSOLUTE COUNT (BEAKER) (test 0.65 K/ L 0.24-0.36 ytpc=249) EOSINOPHILS ABSOLUTE COUNT (BEAKER) (test 0.11 K/ L 0.04-0.36 unld=133) BASOPHILS ABSOLUTE COUNT (BEAKER) (test 0.05 K/ L 0.01-0.08 bypp=743) IMMATURE GRANULOCYTES-RELATIVE PERCENT (BEAKER) 0 % 0-1 (test tcgk=8801) BASIC METABOLIC [id number] 05:51:00 Test Item Value Reference Range Comments SODIUM (BEAKER) (test 138 meq/L 136-145 medx=844) POTASSIUM (BEAKER) (test 3.8 meq/L 3.5-5.1 izvk=985) CHLORIDE (BEAKER) (test 105 meq/L 98-107 njzp=602) CO2 (BEAKER) (test 26 meq/L 22-29 nzpy=179) BLOOD UREA NITROGEN 13 mg/dL 7-21 (BEAKER) (test boqu=238) CREATININE (BEAKER) (test 1.66 mg/dL 0.57-1.25 tpac=640) GLUCOSE RANDOM (BEAKER) 167 mg/dL 70-105 (test ewmt=925) CALCIUM (BEAKER) (test 8.9 mg/dL 8.4-10.2 qiiz=510) EGFR (BEAKER) (test 34 mL/min/1.73 sq m ESTIMATED GFR IS NOT hfxe=8987) ACCURATE CREATININE CLEARANCE IN PREDICTING GLOMERULAR FILTRATION RATE. ESTIMATED GFR IS NOT APPLICABLE FOR DIALYSIS PATIENTS. POCT-GLUCOSE [id number] 21:41:00 Test Item Value Reference Range Comments POC-GLUCOSE METER (BEAKER) 287 mg/dL 70-110 TESTED AT [facility] [address] [facility] (test kvph=2478) [facility] [address] BASIC METABOLIC [id number] 12:35:00 Test Item Value Reference Range Comments SODIUM (BEAKER) (test 134 meq/L 136-145 pomv=970) POTASSIUM (BEAKER) (test 4.6 meq/L 3.5-5.1 frbe=672) CHLORIDE (BEAKER) (test 105 meq/L 98-107 axze=619) CO2 (BEAKER) (test 23 meq/L 22-29 nthi=708) BLOOD UREA NITROGEN 14 mg/dL 7-21 (BEAKER) (test tlxk=404) CREATININE (BEAKER) 1.59 mg/dL 0.57-1.25 (test baas=055) GLUCOSE RANDOM (BEAKER) 266 mg/dL 70-105 (test sirm=798) CALCIUM (BEAKER) (test 8.2 mg/dL 8.4-10.2 rvya=204) EGFR (BEAKER) (test 36 mL/min/1.73 sq m INSUFFICIENT CLINICAL DATA fjbd=3046) TO CALCULATE ESTIMATED GFR.This is an appended report. These results have been appended to a previously final verified report. CBC W/PLT COUNT & AUTO [id number] 04:54:00 Test Item Value Reference Range Comments WHITE BLOOD CELL COUNT (BEAKER) (test ydrs=546) 10.6 K/ L 3.5-10.5 RED BLOOD CELL COUNT (BEAKER) (test fdds=078) 3.55 M/ L 3.93-5.22 HEMOGLOBIN (BEAKER) (test tsyy=506) 10.8 GM/DL 11.2-15.7 HEMATOCRIT (BEAKER) (test sbpm=820) 32.6 % 34.1-44.9 MEAN CORPUSCULAR VOLUME (BEAKER) (test yfca=447) 91.8 fL 79.4-94.8 MEAN CORPUSCULAR HEMOGLOBIN (BEAKER) (test 30.4 pg 25.6-32.2 vivz=335) MEAN CORPUSCULAR HEMOGLOBIN CONC (BEAKER) (test 33.1 GM/DL 32.2-35.5 jdfx=405) RED CELL DISTRIBUTION WIDTH (BEAKER) (test 12.3 % 11.7-14.4 fhyp=788) PLATELET COUNT (BEAKER) (test jspi=510) 311 K/CU MM 150-450 MEAN PLATELET VOLUME (BEAKER) (test dqno=745) 10.2 fL 9.4-12.3 NUCLEATED RED BLOOD CELLS (BEAKER) (test 0 /100 WBC 0-0 opgs=456) NEUTROPHILS RELATIVE PERCENT (BEAKER) (test 71 % gxif=788) LYMPHOCYTES RELATIVE PERCENT (BEAKER) (test 20 % optg=846) MONOCYTES RELATIVE PERCENT (BEAKER) (test 6 % spty=365) EOSINOPHILS RELATIVE PERCENT (BEAKER) (test 3 % aftq=920) BASOPHILS RELATIVE PERCENT (BEAKER) (test 1 % yajo=278) NEUTROPHILS ABSOLUTE COUNT (BEAKER) (test 7.51 K/ L 1.56-6.13 atnz=251) LYMPHOCYTES ABSOLUTE COUNT (BEAKER) (test 2.11 K/ L 1.18-3.74 ltzn=693) MONOCYTES ABSOLUTE COUNT (BEAKER) (test 0.60 K/ L 0.24-0.36 akxg=346) EOSINOPHILS ABSOLUTE COUNT (BEAKER) (test 0.27 K/ L 0.04-0.36 cger=102) BASOPHILS ABSOLUTE COUNT (BEAKER) (test 0.07 K/ L 0.01-0.08 fvcu=641) IMMATURE GRANULOCYTES-RELATIVE PERCENT (BEAKER) 1 % 0-1 (test khgn=7278) [id number] 20:17:00 Test Item Value Reference Range Comments RPR SCREEN (BEAKER) (test zsvh=463) Nonreactive Nonreactive POCT-GLUCOSE [id number] 18:09:00 Test Item Value Reference Range Comments POC-GLUCOSE METER (BEAKER) 215 mg/dL 70-110 TESTED AT [facility] [address] [facility] (test fodt=4233) [place] [address] CBC W/PLT COUNT & AUTO [id number] 11:54:00 Test Item Value Reference Range Comments WHITE BLOOD CELL COUNT (BEAKER) (test mdsl=821) 9.3 K/ L 3.5-10.5 RED BLOOD CELL COUNT (BEAKER) (test ipke=719) 3.45 M/ L 3.93-5.22 HEMOGLOBIN (BEAKER) (test pbnd=494) 10.7 GM/DL 11.2-15.7 HEMATOCRIT (BEAKER) (test ybgr=322) 32.0 % 34.1-44.9 MEAN CORPUSCULAR VOLUME (BEAKER) (test bfwd=940) 92.8 fL 79.4-94.8 MEAN CORPUSCULAR HEMOGLOBIN (BEAKER) (test 31.0 pg 25.6-32.2 aqdu=539) MEAN CORPUSCULAR HEMOGLOBIN CONC (BEAKER) (test 33.4 GM/DL 32.2-35.5 tbei=538) RED CELL DISTRIBUTION WIDTH (BEAKER) (test 12.7 % 11.7-14.4 mmxj=131) PLATELET COUNT (BEAKER) (test eftj=317) 302 K/CU MM 150-450 MEAN PLATELET VOLUME (BEAKER) (test lvdp=806) 10.0 fL 9.4-12.3 NUCLEATED RED BLOOD CELLS (BEAKER) (test 0 /100 WBC 0-0 welu=300) NEUTROPHILS RELATIVE PERCENT (BEAKER) (test 60 % biny=770) LYMPHOCYTES RELATIVE PERCENT (BEAKER) (test 29 % tilg=129) MONOCYTES RELATIVE PERCENT (BEAKER) (test 8 % uyzz=324) EOSINOPHILS RELATIVE PERCENT (BEAKER) (test 3 % prkd=584) BASOPHILS RELATIVE PERCENT (BEAKER) (test 1 % nxfx=298) NEUTROPHILS ABSOLUTE COUNT (BEAKER) (test 5.55 K/ L 1.56-6.13 jbxp=274) LYMPHOCYTES ABSOLUTE COUNT (BEAKER) (test 2.65 K/ L 1.18-3.74 uhdu=278) MONOCYTES ABSOLUTE COUNT (BEAKER) (test 0.70 K/ L 0.24-0.36 szso=328) EOSINOPHILS ABSOLUTE COUNT (BEAKER) (test 0.31 K/ L 0.04-0.36 klud=804) BASOPHILS ABSOLUTE COUNT (BEAKER) (test 0.05 K/ L 0.01-0.08 mtis=302) IMMATURE GRANULOCYTES-RELATIVE PERCENT (BEAKER) 0 % 0-1 (test twog=0429) (MANUAL DIFFERENTIAL)2017-03-15 11:54:00 Test Item Value Reference Range Comments TOTAL COUNTED (BEAKER) (test rxwk=2560) WBC MORPHOLOGY (BEAKER) (test mwuv=316) Normal PLT MORPHOLOGY (BEAKER) (test tqcb=056) Normal RBC MORPHOLOGY (BEAKER) (test hwym=738) Normal SEDIMENTATION [id number] 10:27:00 Test Item Value Reference Range Comments SEDIMENTATION RATE, ERYTHROCYTE (BEAKER) (test 79 mm/HR 0-20 wylp=030) HEMOGLOBIN [id number] 09:33:00 Test Item Value Reference Range Comments HEMOGLOBIN A1C (BEAKER) (test vylb=900) 9.8 % 4.3-6.1 VITAMIN [id number] 09:14:00 Test Item Value Reference Range Comments VITAMIN B12 (BEAKER) (test amug=629) 1790 pg/mL 213-816 TSH/FREE T4 IF [id number] 09:14:00 Test Item Value Reference Range Comments THYROID STIMULATING HORMONE (BEAKER) (test 1.08 uIU/mL 0.35-4.94 dwcq=721) BASIC METABOLIC [id number] 08:52:00 Test Item Value Reference Range Comments SODIUM (BEAKER) (test 137 meq/L 136-145 baap=315) POTASSIUM (BEAKER) (test 4.7 meq/L 3.5-5.1 nyum=246) CHLORIDE (BEAKER) (test 107 meq/L 98-107 qgsy=725) CO2 (BEAKER) (test 25 meq/L 22-29 etew=200) BLOOD UREA NITROGEN 18 mg/dL 7-21 (BEAKER) (test vgbw=107) CREATININE (BEAKER) (test 1.77 mg/dL 0.57-1.25 rvvn=235) GLUCOSE RANDOM (BEAKER) 290 mg/dL 70-105 (test biqg=676) CALCIUM (BEAKER) (test 8.0 mg/dL 8.4-10.2 jxgy=224) EGFR (BEAKER) (test mL/min/1.73 sq m INSUFFICIENT CLINICAL DATA acal=8554) TO CALCULATE ESTIMATED GFR. FastingLIPID [id number] 08:51:00 Test Item Value Reference Range Comments TRIGLYCERIDES (BEAKER) (test lmvl=187) 90 mg/dL CHOLESTEROL (BEAKER) (test zzol=844) 143 mg/dL HDL CHOLESTEROL (BEAKER) (test sjvt=863) 44 mg/dL LDL CHOLESTEROL CALCULATED (BEAKER) (test 81 mg/dL oins=721) Triglyceride Reference Range: Low Risk <150 Borderline 150- 199 High Risk 200-499 Very High Risk >=500Cholesterol Reference Range: Low Risk <200 Borderline 200-239 High Risk > 240HDL Cholesterol Reference Range: Low Risk >=60 High Risk <40LDL Cholesterol Reference Range: Optimal <100 Near Optimal 100-129 Borderline 130-159 High 160-189 Very High >=190 FastingHCG, QUANTITATIVE, [id number] 01:43:00 Test Item Value Reference Range Comments GONADOTROPIN, CHORIONIC (HCG) QUANT (BEAKER) (test < mIU/mL 0-10 gyzl=527) Non- Females: <10 mIU/mL Females: Gestation Age Reference Range(mIU/mL) 0.2-1 Week 5-50 1-2 Weeks 50-500 2-3 Weeks 100-5,000 3-4Weeks 500-10,000 4 -5 Weeks 1,000-50,000 5-6 Weeks 10,000-100,000 6-8 Weeks 15,000-200,000 2-3 Months 10,000-100,000COMPREHENSIVE METABOLIC [id number] 21:57:00 Test Item Value Reference Range Comments TOTAL PROTEIN (BEAKER) 5.0 gm/dL 6.0-8.3 (test ckzd=020) ALBUMIN (BEAKER) (test 2.1 g/dL 3.5-5.0 htlp=9176) ALKALINE PHOSPHATASE 106 U/L 40-150 (BEAKER) (test tpri=797) BILIRUBIN TOTAL (BEAKER) 0.2 mg/dL 0.2-1.2 (test rsdv=209) SODIUM (BEAKER) (test 137 meq/L 136-145 zncq=776) POTASSIUM (BEAKER) (test 4.7 meq/L 3.5-5.1 xryb=993) CHLORIDE (BEAKER) (test 106 meq/L 98-107 tnwb=901) CO2 (BEAKER) (test 25 meq/L 22-29 fcjf=466) BLOOD UREA NITROGEN 21 mg/dL 7-21 (BEAKER) (test rhwq=303) CREATININE (BEAKER) (test 2.00 mg/dL 0.57-1.25 pkfx=584) GLUCOSE RANDOM (BEAKER) 285 mg/dL 70-105 (test pxcj=391) CALCIUM (BEAKER) (test 7.9 mg/dL 8.4-10.2 jqrt=440) AST (SGOT) (BEAKER) (test 16 U/L 5-34 yrdr=109) ALT (SGPT) (BEAKER) (test 14 U/L 6-55 fwic=626) EGFR ([facility]) (test mL/min/1.73 sq m INSUFFICIENT CLINICAL DATA ohyf=8564) TO CALCULATE ESTIMATED GFR. Unit CollectPOCT-GLUCOSE [id number] 21:50:00 Test Item Value Reference Range Comments POC-GLUCOSE METER ([facility]) 278 mg/dL 70-110 TESTED AT [facility] [id number] (test issh=0793) [facility] [id number]
[2019-03-13 10:59] LABS: Absolute Lymphocytes (CBC) 0.7 K/uL (0.7-4.9); Basophils % 0.5 % (0-1.3); Hematocrit 36.5 % (36.0-45.0); MPV 8.7 fL (7.6-11.3)
[2019-03-13 11:04] LABS: Arterial Blood Carboxyhemoglob 1.2 % (0-1.5); Blood O2 Saturation 64.4 % (92-98.5)
[2019-03-13 11:10] LABS: Protime INR 0.83
[2019-03-13 11:23] LABS: ALT/SGPT 31 U/L (12-78); AST/SGOT 10 U/L (15-37); Albumin 2.2 g/dL (3.4-5.0); Alkaline Phosphatase 201 U/L (45-117); BUN Blood Urea Nitrogen 76 mg/dL (7-18); Bicarbonate 17 mmol/L (21-32); Bilirubin Direct < 0.1 mg/dL (0-0.2); Bilirubin Total 0.4 mg/dL (0.2-1.0); Lipase 233 U/L (73-393); Magnesium 2.6 mg/dL (1.8-2.4); NT PRO-BNP 2054 pg/mL (<125); Potassium 4.1 mmol/L (3.5-5.1); Protein, Total 6.9 g/dL (6.4-8.2); Sodium Level 134 mmol/L (136-145); Troponin (Emerg Dept Use Only) < 0.02 ng/mL (0.0-0.045)
[2019-03-13 11:25] LABS: Glucose Level 571 mg/dL (74-106)
--- NOTE | 2019-03-13 11:30 | RAD REPORT ---
EXAM DESCRIPTION: RAD - Chest Single View - 03/13/2019 11:17 am CLINICAL HISTORY: Cough, shortness of breath COMPARISON: November 24 TECHNIQUE: AP portable chest image was obtained 1115 hours . FINDINGS: Lungs are clear. Heart and vasculature are normal. No measurable pleural effusion and no p neumothorax. No acute bony abnormality seen. No acute aortic findings suspected. IMPRESSION: No acute cardiopulmonary process.
--- NOTE | 2019-03-13 11:34 | ER ---
Nurse's Notes [facility] Name: Archana Woo Age: 43 yrs Sex: Female : 1975 Arrival Date: 03/13/2019 Time: 10:26 Bed 8 Private MD: Diagnosis: Acute kidney failure;Elevated white blood cell count;Type 1 diabetes mellitus;Dehydration;Volume depletion;Left sided colitis-perirectal;Bandemia Presentation: 03/13 10:26 Acuity: TARUN 2 sv 10:26 Presenting complaint: EMS states: called out by pt's family stating pt was sitting on sv the toilet attempting to have a BM and pt "passed out". Pt has had no BM x 2 weeks. BP 164/93 HR-98 98% RA BS-533. Transition of care: patient was not received from another setting of care. Onset of symptoms was March 13, 2019. Risk Assessment: Do you want to hurt yourself or someone else? Patient reports no desire to harm self or others. Initial Sepsis Screen: Does the patient meet any 2 criteria? No. Patient's initial sepsis screen is negative. Does the patient have a suspected source of infection? No. Patient's initial sepsis screen is negative. Care prior to arrival: Glucose check: 533. 10:26 Method Of Arrival: EMS: [facility] Triage Assessment: 10:30 General: Appears in no apparent distress. uncomfortable, unkempt, Behavior is sv cooperative, fussy. Pain: Complains of pain in "all over" Pain currently is 8 out of 10 on a pain scale. Neuro: Level of Consciousness is awake, alert, obeys commands, Oriented to person, place, time, situation, Moves all extremities. Speech is normal, Reports a syncopal episode. Respiratory: Airway is patent Respiratory effort is even, unlabored, Respiratory pattern is regular, symmetrical. GI: Abdomen is flat, Stools are reported to be constipated. Abd is soft X 4 quads Abdomen is tender to palpation X 4 quads. Derm: Skin is normal. Historical: - Allergies: 11: No Known Allergies; sv - Home Meds: 11: Toujeo SoloStar 300 unit/mL (1.5 mL) subcutaneous inpn [Active]; sv - PMHx: 11:01 BLIND; CVA; Depression; Diabetes - NIDDM; GERD; Hyperlipidemia; Hypertension; sv neuropathy; THYROID CANCER; TIA; - Immunization history:: Adult Immunizations up to date. - Social history:: Smoking status: Patient/guardian denies using tobacco. - Family history:: not pertinent. - Ebola Screening: : No symptoms or risks identified at this time. Screenin:01 Abuse screen: Denies threats or abuse. Denies injuries from another. Nutritional sv screening: No deficits noted. Tuberculosis screening: No symptoms or risk factors identified. Fall Risk No fall in past 12 months (0 pts). Secondary diagnosis (15 points) blind. IV access (20 points). Ambulatory Aid- None/Bed Rest/Nurse Assist (0 pts). Gait- Normal/Bed Rest/Wheelchair (0 pts) Mental Status- Oriented to own ability (0 pts). Total Lr Fall Scale indicates Low Risk Score (25-44 pts). Fall prevention measures have been instituted. Side Rails Up X 2 Frequent Obs/Assesments occuring As available Patient and Family Educated on Fall Prevention Program and strategies. Assessment: 11:00 General: Appears in no apparent distress. uncomfortable, Behavior is calm, cooperative, aj1 appropriate for age. Pain: Complains of pain in abdomen diffusely. Neuro: Level of Consciousness is awake, alert, obeys commands, Oriented to person, place, time, situation, Speech is normal, Reports dizziness, near-syncope. Cardiovascular: Heart tones S1 S2 present Capillary refill < 3 seconds Rhythm is sinus tachycardia. Respiratory: Airway is patent Respiratory effort is even, unlabored, Respiratory pattern is regular, symmetrical, Breath sounds are clear bilaterally. GI: Abdomen is non-distended, Bowel sounds present X 4 quads. Abd is soft X 4 quads Abdomen is tender to palpation X 4 quads. Reports lower abdominal pain, upper abdominal pain, constipation. : No signs and/or symptoms were reported regarding the genitourinary system. EENT: No signs and/or symptoms were reported regarding the EENT system. EENT: Reports Patient is blind. Derm: No signs and/or symptoms reported regarding the dermatologic system. Skin is pink, warm \\T\\ dry. normal. Musculoskeletal: No signs and/or symptoms reported regarding the musculoskeletal system. Circulation, motion, and sensation intact. 11:25 Reassessment: Notified Dr. Bernner of critical lab results: Glucose 571 and Creatinine aj1 7.60. 12:00 Reassessment: Patient appears in no apparent distress at this time. No changes from aj1 previously documented assessment. Patient and/or family updated on plan of care and expected duration. Pain level reassessed. Patient is alert, oriented x 3, equal unlabored respirations, skin warm/dry/pink. 12:00 Reassessment: Patient taken to CT via stretcher, accompanied by me. aj1 12:10 Reassessment: Patient returned to room, tolerated CT well. Dr. Sims at bedside to aj1 evaluate patient. 13:04 Reassessment: Patient and/or family updated on plan of care and expected duration. Pain aj1 level reassessed. General: Appears in no apparent distress. uncomfortable, Behavior is calm, cooperative, appropriate for age. Pain: Complains of pain in abdomen diffusely. Neuro: Level of Consciousness is awake, alert, obeys commands. Cardiovascular: Patient's skin is warm and dry. Rhythm is sinus tachycardia. Respiratory: Airway is patent Respiratory effort is even, unlabored, Respiratory pattern is regular, symmetrical. Derm: Skin is pink, warm \\T\\ dry. normal. 14:00 Reassessment: Patient appears in no apparent distress at this time. No changes from aj1 previously documented assessment. Patient and/or family updated on plan of care and expected duration. Pain level reassessed. Patient is alert, oriented x 3, equal unlabored respirations, skin warm/dry/pink. Vital Signs: 10:28 BP 150 / 83; Pulse 101; Resp 18; Temp 99.2; Pulse Ox 99% ; Weight 63.5 kg; Height 5 ft. sv 4 in. (162.56 cm); Pain 8/10; 11:00 BP 146 / 79; Pulse 102; Resp 20; Pulse Ox 100% on R/A; aj1 11:30 BP 179 / 95; Pulse 102; Resp 20; Pulse Ox 100% on R/A; aj1 12:00 BP 172 / 98; Pulse 100; Resp 18; Pulse Ox 100% on R/A; aj1 12:30 BP 147 / 78; Pulse 101; Resp 18; Pulse Ox 97% on R/A; aj1 13:00 BP 125 / 77; Pulse 103; Resp 20; Pulse Ox 100% on R/A; aj1 13:30 BP 139 / 75; Pulse 101; Resp 20; Pulse Ox 99% ; aj1 14:00 BP 171 / 88; Pulse 96; Resp 20; Pulse Ox 98% on R/A; aj1 14:30 BP 183 / 93; Pulse 97; Resp 18; Pulse Ox 99% on R/A; aj1 10:28 Body Mass Index 24.03 (63.50 kg, 162.56 cm) sv ED Course: 10:26 Patient arrived in ED. sv 10:29 Zelalem Brenner MD is Attending Physician. davion 10:40 Initial lab(s) drawn, by il, sent to lab. Inserted saline lock: 22 gauge in right sv forearm, using aseptic technique. Blood collected. Flushed right forearm with 5 ml normal saline. 10:40 Arm band placed on. sv 10:40 Patient has correct armband on for positive identification. Placed in gown. Bed in low sv position. Call light in reach. Side rails up X 1. monitor car operator on. Pulse ox on. NIBP on. Door closed. Head of bed elevated. 10:42 Marcella Pradhan, RN is Primary Nurse. sv 10:44 Triage completed. sv 11:00 No provider procedures requiring assistance completed. aj1 11:02 X-ray(s) taken. sv 11:04 Report given to Emerald LEAHY. sv 11:13 Radiology exam delayed due to lab results not completed at this time. (BUN/Creatinine). mw3 11:13 Radiology exam delayed due to test not completed at this time. mw3 11:18 XRAY Chest (1 view) In Process Unspecified. EDMS 11:32 Yvette Sims MD is Hospitalizing Provider. davion 11:42 CT completed. Patient tolerated procedure well. Patient moved back from CT. mw3 11:59 CT Stone Protocol In Process Unspecified. EDMS 12:13 Inserted saline lock: 22 gauge in right hand, using aseptic technique. aj1 12:47 Lou cath inserted, using sterile technique, 16 Fr., by il, balloon inflated, urine aj1 specimen collected. returned clear yellow urine. Patient tolerated well. 13:46 Primary Nurse role handed off by Marcella Pradhan, ARMOND sv 13:46 Emerald Bowens RN is Primary Nurse. sv 13:50 Urine --Ancillary (enter results) Sent. sv 13:50 Urine Dipstick--Ancillary (enter results) Sent. sv 14:40 Patient admitted, IV remains in place. aj1 14:46 Report given to ARMOND Pacheco on 4th floor. aj1 Administered Medications: 12:07 Drug: NS 0.9% (30 ml/kg) 30 ml/kg Route: IV; Rate: bolus; Site: right forearm; aj1 14:45 Follow up: IV Status: Completed infusion; IV Intake: 1900ml aj1 12:07 Drug: Pepcid 20 mg Route: IVP; Site: right forearm; aj1 13:44 Follow up: Response: No adverse reaction aj1 12:15 Drug: Insulin Regular Human 10 units {Co-Signature: aa5 (Rupali Ferraro RN).} Route: aj1 IVP; Site: right forearm; 13:43 Follow up: Response: No adverse reaction; Blood sugar is lowered aj1 12:15 Drug: Insulin Regular Human 10 units {Co-Signature: aa5 (Rupali Ferraro RN).} Route: aj1 Sub-Q; Site: left lower abdomen; 13:44 Follow up: Response: No adverse reaction; Blood sugar is lowered aj1 14:10 Drug: Rocephin 1 grams Route: IV; Rate: per protocol; Site: right forearm; aj1 14:12 Follow up: IV Status: Completed infusion; IV Intake: 10ml aj1 14:12 Drug: Flagyl 500 mg Volume: 100 ml; Route: IVPB; Rate: 200 ml/hr; Infused Over: 30 aj1 mins; Site: right forearm; 14:45 Follow up: IV Status: Infusion continued upon admission aj1 14:49 Not Given (pt admited as soon as bolus finished): NS 0.9% 1000 ml IV at 125 ml/hr aj1 continuous Point of Care Testing: Blood Glucose: 10:28 Blood Glucose: High (>450 mg/dL); sv 12:45 Blood Glucose: 414 mg/dL; aj1 10:28 >500 sv Ranges: Intake: 14:12 IV: 10ml; Total: 10ml. aj1 14:45 IV: 1900ml; Total: 1910ml. aj1 Output: 12:47 Urine: 700ml (Lou); Total: 700ml. aj1 Outcome: 11:33 Decision to Hospitalize by Provider. davion 14:47 Admitted to Tele accompanied by tech, via stretcher, with chart. aj1 14:47 Condition: stable 14:47 Discharge instructions given to patient, family, Instructed on the need for admit, Demonstrated understanding of instructions. 14:47 Patient left the ED. aj1 Signatures: Dispatcher [employer] Emerald Castillo RN RN aj1 Marcella Pradhan RN RN sv Anderson, Corey, MD MD cha Willis, Michelle 3 Rupali Ferraro RN aa5
--- NOTE | 2019-03-13 11:35 | EDPHYS ---
Physician Documentation [facility] Name: Archana Woo Age: 43 yrs Sex: Female : 1975 Arrival Date: 03/13/2019 Time: 10:26 Bed 8 Private MD: ED Physician Zelalem Brenner HPI: 03/13 10:44 This 43 yrs old Female presents to ER via Unassigned with complaints of davion Syncope, High Blood Sugar. 10:44 The patient has experienced near-syncope, almost passed out, felt dizzy, felt faint. davion Onset: The symptoms/episode began/occurred this morning, today. Duration: This was a single episode, that lasted 20 second(s). Context: the episode(s) was witnessed, by family. Associated injury: The patient did not suffer any apparent associated injury. Associated signs and symptoms: The patient has no apparent associated signs or symptoms. Current symptoms: weak, dry and tachycardic. The patient has experienced similar episodes in the past, a few times. Historical: - Allergies: 11: No Known Allergies; sv - Home Meds: 11: Toujeo SoloStar 300 unit/mL (1.5 mL) subcutaneous inpn [Active]; sv - PMHx: 11: BLIND; CVA; Depression; Diabetes - NIDDM; GERD; Hyperlipidemia; Hypertension; sv neuropathy; THYROID CANCER; TIA; - Immunization history:: Adult Immunizations up to date. - Social history:: Smoking status: Patient/guardian denies using tobacco. - Family history:: not pertinent. - Ebola Screening: : No symptoms or risks identified at this time. ROS: 10:44 Constitutional: Negative for fever, chills, and weight loss, Eyes: Negative for injury, davion pain, redness, and discharge, ENT: Negative for injury, pain, and discharge, Neck: Negative for injury, pain, and swelling, Respiratory: Negative for shortness of breath, cough, wheezing, and pleuritic chest pain, Back: Negative for injury and pain, : Negative for injury, bleeding, discharge, and swelling, MS/Extremity: Negative for injury and deformity, Skin: Negative for injury, rash, and discoloration, Psych: Negative for depression, anxiety, suicide ideation, homicidal ideation, and hallucinations, Allergy/Immunology: Negative for hives, rash, and allergies, Endocrine: Negative for neck swelling, polydipsia, polyuria, polyphagia, and marked weight changes, Hematologic/Lymphatic: Negative for swollen nodes, abnormal bleeding, and unusual bruising. 10:44 Cardiovascular: Positive for palpitations. 10:44 Abdomen/GI: Positive for abdominal pain, of the right upper quadrant, left upper quadrant, right lower quadrant and left lower quadrant. 10:44 Neuro: Positive for near syncope, weakness. Exam: 10:44 Constitutional: This is a well developed, well nourished patient who is awake, alert, davion and in no acute distress. Head/Face: Normocephalic, atraumatic. Eyes: Pupils equal round and reactive to light, extra-ocular motions intact. Lids and lashes normal. Conjunctiva and sclera are non-icteric and not injected. Cornea within normal limits. Periorbital areas with no swelling, redness, or edema. ENT: Nares patent. No nasal discharge, no septal abnormalities noted. Tympanic membranes are normal and external auditory canals are clear. Oropharynx with no redness, swelling, or masses, exudates, or evidence of obstruction, uvula midline. Mucous membranes moist. Neck: Trachea midline, no thyromegaly or masses palpated, and no cervical lymphadenopathy. Supple, full range of motion without nuchal rigidity, or vertebral point tenderness. No Meningismus. Chest/axilla: Normal chest wall appearance and motion. Nontender with no deformity. No lesions are appreciated. Respiratory: Lungs have equal breath sounds bilaterally, clear to auscultation and percussion. No rales, rhonchi or wheezes noted. No increased work of breathing, no retractions or nasal flaring. Back: No spinal tenderness. No costovertebral tenderness. Full range of motion. Female : Normal external genitalia. Skin: Warm, dry with normal turgor. Normal color with no rashes, no lesions, and no evidence of cellulitis. MS/ Extremity: Pulses equal, no cyanosis. Neurovascular intact. Full, normal range of motion. Neuro: Awake and alert, GCS 15, oriented to person, place, time, and situation. Cranial nerves II-XII grossly intact. Motor strength 5/5 in all extremities. Sensory grossly intact. Cerebellar exam normal. Normal gait. Psych: Awake, alert, with orientation to person, place and time. Behavior, mood, and affect are within normal limits. 10:44 Cardiovascular: Rate: tachycardic, Rhythm: regular, Pulses: Pulses are 4+ in bilateral radial, brachial, femoral, popliteal, posterior tibial and and dorsalis pedis arteries.. Heart sounds: normal, normal S1and S2, no S3 or S4, no murmur, no rub, no gallop, Edema: is not appreciated, JVD: is not appreciated. 12:58 Abdomen/GI: Rectal exam: rectal tone normal, Stool: normal, hemorrhoid(s), are not davion appreciated, mass, is not appreciated, swelling, that is mild, tenderness, that is mild, that is moderate, fecal impaction, is not appreciated, the exam is chaperoned by an pre sales technical consultant. Vital Signs: 10:28 BP 150 / 83; Pulse 101; Resp 18; Temp 99.2; Pulse Ox 99% ; Weight 63.5 kg; Height 5 ft. sv 4 in. (162.56 cm); Pain 8/10; 11:00 BP 146 / 79; Pulse 102; Resp 20; Pulse Ox 100% on R/A; aj1 11:30 BP 179 / 95; Pulse 102; Resp 20; Pulse Ox 100% on R/A; aj1 12:00 BP 172 / 98; Pulse 100; Resp 18; Pulse Ox 100% on R/A; aj1 12:30 BP 147 / 78; Pulse 101; Resp 18; Pulse Ox 97% on R/A; aj1 13:00 BP 125 / 77; Pulse 103; Resp 20; Pulse Ox 100% on R/A; aj1 13:30 BP 139 / 75; Pulse 101; Resp 20; Pulse Ox 99% ; aj1 14:00 BP 171 / 88; Pulse 96; Resp 20; Pulse Ox 98% on R/A; aj1 14:30 BP 183 / 93; Pulse 97; Resp 18; Pulse Ox 99% on R/A; aj1 10:28 Body Mass Index 24.03 (63.50 kg, 162.56 cm) sv MDM: 10:29 Patient medically screened. [facility] 10:49 Data reviewed: vital signs, nurses notes, lab test result(s), EKG, radiologic studies. [facility] 03/13 10:43 Order name: Basic Metabolic Panel; Complete Time: 11:27 [facility] 03/13 10:43 Order name: CBC with Diff; Complete Time: 12:49 [facility] 03/13 10:43 Order name: LFT's; Complete Time: 11:27 [facility] 03/13 10:43 Order name: Magnesium; Complete Time: 11:27 [facility] 03/13 10:43 Order name: NT PRO-BNP; Complete Time: 11:27 [facility] 03/13 10:43 Order name: PT-INR; Complete Time: 11:15 [facility] 03/13 10:43 Order name: Troponin (emerg Dept Use Only); Complete Time: 11:27 [facility] 03/13 10:43 Order name: Lipase; Complete Time: 11:27 [facility] 03/13 10:43 Order name: Blood Culture Adult (2) [facility] 03/13 10:43 Order name: Ketone, Serum; Complete Time: 11:27 [facility] 03/13 10:43 Order name: ABG; Complete Time: 11:25 [facility] 03/13 10:43 Order name: Urine Culture [facility] 03/13 10:50 Order name: Glucose, Ancillary Testing; Complete Time: 11:15 [facility] 03/13 11:14 Order name: Manual Differential; Complete Time: 12:49 [facility] 03/13 10:43 Order name: XRAY Chest (1 view); Complete Time: 11:35 [facility] 03/13 10:43 Order name: EKG; Complete Time: 10:47 [facility] 03/13 10:43 Order name: Cardiac monitoring; Complete Time: 11: [facility] 03/13 11:29 Order name: CT Stone Protocol; Complete Time: 12:49 [facility] 03/13 13:11 Order name: Urine Dipstick--Ancillary (enter results) 03/13 13:12 Order name: Urine --Ancillary (enter results) 03/13 13:56 Order name: Urine --Ancillary [facility] 03/13 13:58 Order name: Urine Dipstick-Ancillary [facility] 03/13 10:43 Order name: EKG - Nurse/Tech; Complete Time: 11: [facility] 03/13 10:43 Order name: IV Saline Lock; Complete Time: 11: [facility] 03/13 10:43 Order name: Labs collected and sent; Complete Time: 11: [facility] 03/13 10:43 Order name: O2 Per Protocol; Complete Time: 11: [facility] 03/13 10:43 Order name: O2 Sat Monitoring; Complete Time: 11: [facility] 03/13 10:43 Order name: Urine Dipstick-Ancillary (obtain specimen); Complete Time: 13:50 [facility] 03/13 10:43 Order name: Urine Test (obtain specimen); Complete Time: 13:50 [facility] 03/13 11:27 Order name: Carmine; Complete Time: 12:49 [facility] Administered Medications: 12:07 Drug: NS 0.9% (30 ml/kg) 30 ml/kg Route: IV; Rate: bolus; Site: right forearm; aj1 14:45 Follow up: IV Status: Completed infusion; IV Intake: 1900ml aj1 12:07 Drug: Pepcid 20 mg Route: IVP; Site: right forearm; aj1 13:44 Follow up: Response: No adverse reaction aj1 12:15 Drug: Insulin Regular Human 10 units {Co-Signature: aa5 (Rupali Ferraro RN).} Route: aj1 IVP; Site: right forearm; 13:43 Follow up: Response: No adverse reaction; Blood sugar is lowered aj1 12:15 Drug: Insulin Regular Human 10 units {Co-Signature: aa5 (Rupali Ferraro RN).} Route: aj1 Sub-Q; Site: left lower abdomen; 13:44 Follow up: Response: No adverse reaction; Blood sugar is lowered aj1 14:10 Drug: Rocephin 1 grams Route: IV; Rate: per protocol; Site: right forearm; aj1 14:12 Follow up: IV Status: Completed infusion; IV Intake: 10ml aj1 14:12 Drug: Flagyl 500 mg Volume: 100 ml; Route: IVPB; Rate: 200 ml/hr; Infused Over: 30 aj1 mins; Site: right forearm; 14:45 Follow up: IV Status: Infusion continued upon admission aj1 14:49 Not Given (pt admited as soon as bolus finished): NS 0.9% 1000 ml IV at 125 ml/hr aj1 continuous Point of Care Testing: Blood Glucose: 10:28 Blood Glucose: High (>450 mg/dL); sv 12:45 Blood Glucose: 414 mg/dL; aj1 10:28 >500 sv Ranges: Critical Glucose Levels:Adult <50 mg/dl or >400 mg/dl <40 mg/dl or >180 mg/dl Disposition: 03/13/19 11:33 Hospitalization ordered by Yvette Sims for Inpatient Admission. Preliminary diagnosis are Acute kidney failure, Elevated white blood cell count, Type 1 diabetes mellitus, Dehydration, Volume depletion, Left sided colitis - perirectal, Bandemia. - Bed requested for Telemetry/MedSurg (Inpatient). - Status is Inpatient Admission. aj1 - Condition is Fair. - Problem is new. - Symptoms have improved. UTI on Admission? No Signatures: Dispatcher [employer] EDVT Jil Baird Angela, RN RN aj1 Marcella Pradhan RN RN Zelalem Brenner MD MD cha Audri Calderon RN aa5 Corrections: (The following items were deleted from the chart) 11:37 10:47 Abdomen Pelvis W Con+CT.RAD.BRZ ordered. [facility] ED[facility] 12:48 11:33 Hospitalization Ordered by Yvette Sims MD for Inpatient Admission. Preliminary davion diagnosis is Acute kidney failure; Elevated white blood cell count; Type 1 diabetes mellitus; Dehydration; Volume depletion. Bed requested for Telemetry/MedSurg (Inpatient). Status is Inpatient Admission. Condition is Fair. Problem is new. Symptoms have improved. UTI on Admission? No. davion 13:09 12:48 03/13/2019 11:33 Hospitalization Ordered by Yvette Sims MD for Inpatient bd Admission. Preliminary diagnosis is Acute kidney failure; Elevated white blood cell count; Type 1 diabetes mellitus; Dehydration; Volume depletion; Left sided colitis - perirectal; Bandemia. Bed requested for Telemetry/MedSurg (Inpatient). Status is Inpatient Admission. Condition is Fair. Problem is new. Symptoms have improved. UTI on Admission? No. davion 14:47 13:09 03/13/2019 11:33 Hospitalization Ordered by Yvette Sims MD for Inpatient aj1 Admission. Preliminary diagnosis is Acute kidney failure; Elevated white blood cell count; Type 1 diabetes mellitus; Dehydration; Volume depletion; Left sided colitis - perirectal; Bandemia. Bed requested for Telemetry/MedSurg (Inpatient). Status is Inpatient Admission. Condition is Fair. Problem is new. Symptoms have improved. UTI on Admission? No. bd
[2019-03-13] MEDS ORDERED: NA CHLORIDE 0.9% 1,000 ML IV ONE (12:08)
--- NOTE | 2019-03-13 12:14 | RAD REPORT ---
EXAM DESCRIPTION: CT - Stone Protocol - 03/13/2019 11:44 am CLINICAL HISTORY: Abdominal pain COMPARISON: CT study June 2018 TECHNIQUE: Axial [address] imaging of the abdomen and pelvis was performed without IV contrast. No IV contrast was given because of allergy, abnormal renal function, patient refusal or physician re quest. No oral contrast administered. All CT scans are performed using dose optimization technique as appropriate and may include automated exposure control or mA/KV adjustment according to patient size. FINDINGS: No suspicious findings in the lung bases. No pericardial thickening or effusion. The liver, spleen and pancreas show no suspicious findings on non-contrast imaging. Cholecystectomy c lips are present. No biliary tree dilatation. Renal vascular calcifications are present. No hydronephrosis or obstructing renal calculus confirmed. Patient does have phleboliths and vascular calcifications in the pelvis. No history was available as to lateralization of symptoms. No significant adrenal finding. Isodense renal masses and pyelonephr itis cannot be excluded in the absence of IV contrast. The urinary bladder is without significant fin ding. Uterus is enlarged containing 2 partially calcified fundal fibroids. Uterus is not substantiall y different from June 2018. No ovarian or adnexal primary finding. No gastric dilatation or gastric wall thickening. No dilation of the large or small bowel. An acute p rocess of the colon from cecum to rectosigmoid junction is not suspected. There is perirectal [place] us/ inflammatory stranding primarily posterior. There is prominent stool distending but not dilating the rectum. There is some evidence for circumferential wall thickening of the distal most rectum and anal region. Asymmetry or focal mass density is not confirmed. Follow-up colonoscopy would be suggest ed for exclusion of a mass. The proctitis or perianal infectious/ inflammatory process is suspected. This can be correlated with clinical presentation. No free air, free fluid or pneumatosis. No other areas of inflammatory stranding. No bulky lymphaden opathy or hernia. No omental thickening. No suspicious bony findings. Lumbosacral transition body is present. For the purposes of this report the lowest movable vertebral body is labeled L5. L5 pars interarticularis defects are present. IMPRESSION: Circumferential thickening in the soft tissues of the distal rectum and perianal region. The uniform circumferential thickening would favor infectious/inflammatory etiology rather than mass . No bowel obstruction, free air or surgically emergent finding. No hydronephrosis or obstructing ureteral calculi. Patient has renal vascular calcifications and nono bstructing calyx calculi. Isodense masses and pyelonephritis are not excluded. Correlation is needed with history and physical exam findings. Follow-up colonoscopy may be needed. Full assessment is limited is the absence of IV contrast.
[2019-03-13] MEDS ORDERED: INSULIN -REGULAR HUMAN 50 UNIT/0.5 ML ML ONE ×2 (12:21→12:33)
[2019-03-13] MEDS ORDERED: CEFTRIAXONE/SWI 1gm 1 GM/10 ML SYR ONE (12:22)
[2019-03-13] MEDS ORDERED: FAMOTIDINE 20 MG/2 ML VIAL IV ONE (12:22)
[2019-03-13] MEDS ORDERED: NA CHLORIDE 0.9% 3,000 ML ONE (12:22)
[2019-03-13 12:25] LABS: Blood Morphology Comment NOT SEEN (NOT SEEN); Platelet Estimate ADEQ
[2019-03-13] MEDS ORDERED: METRONIDAZOLE 500mg IVPB 500 MG/100 ML BAG IV ONE (13:40)
[2019-03-13 13:53] LABS: Urine Specific Gravity 1.015 (1.005-1.030)
[2019-03-13 13:55] LABS: Urine Blood 1+ (NEG); Urine Glucose 2+ (NEG); Urine Protein 3+ (NEG); Urine Specific Gravity 1.015 (1.005-1.030)
[2019-03-13] MEDS ORDERED: D50W 25 GM/50 ML SYRINGE IV PRN (15:07)
[2019-03-13] MEDS ORDERED: GLUCAGON 1 MG/VIAL IM PRN (15:07)
[2019-03-13] MEDS ORDERED: NA CHLORIDE 0.9% 1,000 ML IV SCH (15:07)
[2019-03-13] MEDS: ONDANSETRON 4 MG/2 ML VIAL IV PRN (15:42)
[2019-03-13] MEDS: MORPHINE 2 MG/ML SYR IV PRN ×2 (15:42→21:38)
[2019-03-13] MEDS: INSULIN -REGULAR HUMAN 50 UNIT/0.5 ML ML SQ SCH ×2 (15:53→21:00)
[2019-03-13 16:23] LABS: Urine Appearance CLOUDY; Urine Bilirubin NEGATIVE (NEG); Urine Blood TRACE (NEG); Urine Color YELLOW; Urine Glucose 2+ (NEG); Urine Protein 3+ (NEG); Urine Specific Gravity 1.015 (1.005-1.030); Urine Urobilinogen 0.2 mg/dL (0.2-1.0)
[2019-03-13] MEDS: INSULIN GLARGINE 100 UNITS/ML SQ SCH (16:35)
[2019-03-13 16:53] LABS: Urine Microscopic Reflex ORDER UMIC
[2019-03-13 16:54] LABS: Urine Bacteria 20-50 /HPF (<20); Urine Culture Reflex Order REFLEXED
[2019-03-13 17:21] LABS: Potassium 3.9 mmol/L (3.5-5.1)
[2019-03-13] MEDS: NA CHLORIDE IV SCH ×2 (18:21)
[2019-03-13] MEDS: NA BICARB IV SCH ×2 (18:21)
[2019-03-13] MEDS: METOCLOPRAMIDE 10 MG/2mL INJ IV PRN (21:37)
--- NOTE | 2019-03-13 21:54 | HP ---
Date of Admission: 03/13/2019 Chief Complaint: Elevated blood sugar level, nausea, vomiting. Primary Care Physician: Dr. Dahl. History Of Present Illness: Patient is a 43-year-old female with multiple comorbidities including legal blindness, diabetes, retinopathy, hypertension, depression, thyroid cancer, hyperlipidemia, GERD, chronic kidney disease, history of CVA, who was in her usual state of health, very noncompliant with checking her blood sugars, has severe diabetic gastroparesis, not able to tolerate much of a diet, has been having nausea and vomiting, elevated blood sugar levels. Therefore, comes into the ER for further evaluation. Patient had near syncopal episode, felt dizzy, faint. Patient's symptoms are constant, moderate, progressively worsening. Patient did not suffer any trauma. Past Medical History: Diabetes mellitus, insulin requiring; legally blind due to diabetic retinopathy; hypertension; depression with anxiety; history of thyroid cancer; hyperlipidemia; GERD; chronic kidney disease; CVA x3. Past Surgical History: Cholecystectomy, thyroidectomy, multiple eye surgeries, . Social History: Patient is , has a daughter. Patient is disabled, lives with her [id number] and who is her care provider. Patient smokes every day. Denies any alcohol use or illicit drug use. Family History: Father had heart disease, hypertension, thyroid problems. Mother had diabetes and kidney disease. Review of Systems: Ten-point system reviewed, negative except as per HPI. Physical Examination: Vital Signs: Blood pressure 150/83, pulse 101, respirations 18, temperature 99.2, O2 99% on room air. General: Awake, alert, oriented x3, ill-appearing female. HEENT: Normocephalic, atraumatic. PERRLA. EOMI. Dry mucous membranes. Oropharynx is clear. Conjunctivae anicteric. Neck: Supple. No JVD. Trachea midline. CV: S1, S2. Regular rate and rhythm. Peripheral pulses present. Respiratory: Moving air well bilaterally. No wheezing or stridor. Gastrointestinal: Abdomen is soft, nontender, nondistended. Positive bowel sounds. Extremities: No clubbing, cyanosis, or edema. Neuro: Cranial nerves 3-12 intact grossly. No focal neurological deficit. Speech is normal. Strength is symmetric in bilateral upper and lower extremities. Skin: No rashes. Normal skin turgor. Laboratory Data: Sodium 134, potassium 4.1, chloride 105, CO2 17, BUN 76, creatinine 7.6, glucose 571, calcium 8.3, magnesium 2.6, alkaline phosphatase 201. Troponin less than 0.02. BNP 2054. Albumin 2.2. ABG shows, seems like a venous sample due to pO2 being 34.6, pCO2 is 37, pH 7.3, bicarb is 17. INR 0.83. WBC 23, H and H 12.3 and 36.5, platelets 345, neutrophils 92%. Acetone level is negative. No elevated anion gap. UA is pending. Chest x-ray, personally reviewed, shows no acute cardiopulmonary process. Assessment And Plan: A 43-year-old female with: 1. Diabetes mellitus type 2 with uncontrolled hyperglycemia. Glucose level is 571. Patient has not received any insulin yet however it has been ordered by ED physician - pt was in CT scan. We will recheck blood glucose level. Doubt in diabetic ketoacidosis. Ketones are negative. There is no elevated anion gap. We will bolus with 2 L of IV fluids normal saline. 2. Syncopal episode, likely related to dehydration. We will continue to monitor. 3. Acute on chronic kidney injury. Creatinine is 7.6 with electrolyte disturbances. Patient does have stage 3 chronic kidney disease. Will likely need to be started on dialysis. We will consult Nephrology. 4. Hypermagnesemia, likely secondary to acute on chronic kidney injury. 5. Leukocytosis with neutrophilia. We will obtain UA. Chest x-ray is clear. 6. History of cerebrovascular accident. 7. Diabetic retinopathy. Patient has legal blindness. 8. Hyperlipidemia, mixed. 9. Essential hypertension. We will resume home medications as appropriate. 10. Depression with anxiety, stable. 11. History of thyroid cancer. 12. Nicotine dependence with cigarette smoking, counseled. 13. Gastroesophageal reflux disease without esophagitis. We will continue home medications. Plan: Admit patient to Med-Surg, place as inpatient. Length of stay greater than 2 midnights. DAVIDA Voice ID: [id number] DAYANARA
--- NOTE | 2019-03-14 01:25 | CON ---
Date of Consultation: 03/13/2019 Chief Complaint: Acute kidney injury on chronic kidney disease. History Of Present Illness: The patient has chronic kidney disease stage 4. She presented to the hospital because of abdominal pain, generalized weakness. She has history of diabetic gastroparesis. Renal function was evaluated and showed significant worsening of the renal function. The patient was found to have acute on chronic renal failure secondary to prerenal azotemia and renal hypoperfusion. The patient has nonoliguric urine output. Electrolytes are in normal ranges. The patient has nonoliguric kidney injury, severe, secondary to prerenal azotemia and ATN in setting of sepsis. WBC is elevated up to 23,000. On arrival to the hospital, the patient had blood work done, which showed sodium 134, potassium 4.1, chloride 105, CO2 17, BUN 76, creatinine 7.0. The patient was found to have hyperglycemia, blood glucose was 571. Subsequently, the patient was found to have metabolic acidosis, bicarbonate of 12, chloride 120, sodium 139, glucose 164. The patient is complaining of generalized weakness, abdominal pain. Workup is pending to rule out bowel obstruction. CT scan of the abdomen and pelvis was done and showed renal vascular calcification. No hydronephrosis. No obstructive renal stones. No significant changes involving adrenal gland. Two partially calcified fundal fibroid tumors in the uterus. There is prominent stool distention in not dilated rectum. Thickening of the rectal wall, will require further workup with colonoscopy and rectoscopy. Review of Systems: Constitutional: Patient is complaining of generalized weakness. Eyes: Denies new vision changes. Ears, Nose, Mouth, and Throat: Denies sore throat, earache. Respiratory: Denies PND or orthopnea. Cardiovascular: Denies chest pain, palpitation. GI: Complaining of generalized abdominal pain, nausea, vomiting. Denies diarrhea. She was complaining of constipation, but there is no history of melena. Eleven systems reviewed and all are negative. Past Medical History: Chronic kidney disease stage 4, history of acute kidney injury, previous admission for advanced chronic kidney disease and compensation , hypertension, diabetes mellitus with renal manifestation, proteinuria, tobacco use, GERD, depression, anxiety, CVA x3, hyperlipidemia, thyroidectomy, multiple eye surgeries, C-sections. Social History: Denies tobacco, alcohol, or illicit drugs. Family History: Hypertension, heart disease, thyroid disease. Physical Examination: General: The patient is awake, alert, follows commands. Eyes: EOMI. Anicteric sclerae. Ears, Nose, Mouth, and Throat: Oral mucosa moist. No pallor. Neck: Supple. No bruits. Lungs: Clear to auscultation bilaterally. No wheezing Heart: S1, S2. No pericardial friction rub. Abdomen: Soft. No rebound. No guarding. Bowel sounds present. Extremities: No edema. No clubbing. No cyanosis. SKIN: warm and dry , no oozing NEUROLOGIC: alert , oriented x3, no tremor Laboratory Data: Sodium 134, potassium 3.9, chloride 120, CO2 12, BUN 70, creatinine 6.67, glucose 164, calcium is 7.8. Impression And Plan: 1. Acute on chronic kidney injury. Renal function has not improved significantly. There is worsening of metabolic acidosis, which may be due to sodium chloride infusion with normal saline. The patient will have fluids with sodium bicarbonate to compensate for metabolic acidosis. 2. Monitor electrolytes. Adjust fluids accordingly. 3. Hypoalbuminemia. Increase p.o. protein intake. 4. Hypertension. Adjust blood pressure medication. 5. Acute kidney injury, severe. The patient may require dialysis placed. Plan is to obtain consent for dialysis catheter and dialyze the patient as soon as possible. TAMIKA/KERI Voice ID: [id number] Report ID: [id number] DAYANARA
[2019-03-14] MEDS: METOCLOPRAMIDE 10 MG/2mL INJ IV PRN ×2 (04:09→20:19)
[2019-03-14] MEDS: MORPHINE 2 MG/ML SYR IV PRN ×4 (04:10→20:15)
[2019-03-14] MEDS: NA BICARB IV SCH ×6 (04:25→11:28)
[2019-03-14] MEDS: NA CHLORIDE IV SCH ×6 (04:25→11:28)
[2019-03-14 07:00] LABS: Absolute Lymphocytes (CBC) 1.9 K/uL (0.7-4.9); Basophils % 0.5 % (0-1.3); Hematocrit 31.3 % (36.0-45.0); MPV 8.5 fL (7.6-11.3); RBC Red Blood Cell Count 3.57 M/uL (3.86-4.86)
[2019-03-14 07:05] LABS: Protime INR 0.84
[2019-03-14 07:21] LABS: Albumin 1.8 g/dL (3.4-5.0); Bilirubin Total 0.2 mg/dL (0.2-1.0); Magnesium 2.4 mg/dL (1.8-2.4); Phosphorus 3.6 mg/dL (2.5-4.9); Potassium 3.6 mmol/L (3.5-5.1); Protein, Total 5.6 g/dL (6.4-8.2)
[2019-03-14] MEDS: INSULIN -REGULAR HUMAN 50 UNIT/0.5 ML ML SQ SCH ×4 (07:30→21:00)
--- NOTE | 2019-03-14 07:41 | EKG ---
Test Date: 2019-03-13 Test Time: 10:48:18 Accounts Receivable Analyst: RAUL MEASUREMENT RESULTS: Intervals: Rate: 102 MT: 156 QRSD: 76 QT: 368 QTc: 479 [place]: P: 78 MT: 156 QRS: 23 T: 88 INTERPRETIVE STATEMENTS: Sinus tachycardia Otherwise normal ECG Compared to ECG 03/13/2019 10:47:50 No significant changes Electronically Signed On 03-14-19 07:41:03 CDT by Souleymane Julio
--- NOTE | 2019-03-14 07:41 | EKG ---
Test Date: 2019-03-13 Test Time: 10:47:50 Registered Nurse Maternal Child: RAUL MEASUREMENT RESULTS: Intervals: Rate: 102 CO: 180 QRSD: 74 QT: 366 QTc: 477 [place]: P: 72 CO: 180 QRS: 24 T: 83 INTERPRETIVE STATEMENTS: Sinus tachycardia Otherwise normal ECG Compared to ECG 11/24/2018 11:18:07 Sinus rhythm no longer present Electronically Signed On 03-14-19 07:41:05 CDT by Souleymane Julio
[2019-03-14] MEDS ORDERED: BISACODYL E.C. 5 MG TAB PO PRN (09:24)
[2019-03-14] MEDS: HYDRALAZINE HCL 25 MG TABLET PO PRN (09:58)
[2019-03-14] MEDS: DOCUSATE NA 100 MG CAP PO SCH ×2 (09:58→20:15)
[2019-03-14] MEDS: POLYETHYL GLY 3350 17 GM/DOSE PO PRN (09:59)
[2019-03-14] MEDS ORDERED: FLEET ENEMA ADULT PR ONE (12:34)
[2019-03-14] MEDS: NACHLORIDE 0.45% 1,000 ML IV SCH (12:41)
[2019-03-14] MEDS: CEFTRIAXONE/SWI 1gm 1 GM/10 ML SYR IV SCH (13:45)
--- NOTE | 2019-03-14 16:13 | PN ---
Date of Progress Note: 03/14/2019 Chief Complaint: Acute kidney injury on advanced chronic kidney disease stage 4. History Of Present Illness: Patient has nonoliguric urine output. She was started on IV fluids to control hyperazotemia and renal function has not improved significantly over the last 24 hours. Patient developed acute kidney injury, severe due to ATN. She is admitted for sepsis. WBC is elevated up to 23,000. Patient although is hemodynamically stable. Blood work on admission shows sodium 134, potassium 4.1, chloride 105, CO2 of 17, BUN 76, creatinine 7.0. Patient was on bicarbonate drip to control metabolic acidosis. Bicarbonate dropped to 12 and today is improving. Review of Systems: Denies fever or chills. Physical Examination: Lungs: Clear to auscultation bilaterally. Heart: S1, S2. Abdomen: Soft, benign. Extremities: Has minimal edema. Laboratory Data: WBC 17,300, hemoglobin 10.3, hematocrit 31.3, platelet count is 299,000. Sodium 142, potassium 3.6, chloride 114, CO2 of 18, BUN 66, creatinine 5.94, phosphorus 3.6, albumin 1.8. Impression And Plan: 1. Acute on chronic kidney injury. Renal function has not improved significantly, although patient has nonoliguric urine output. Patient is reluctant to start dialysis. Plan is to postpone dialysis catheter and observe with IV fluids management for the next 48 hours. Patient will continue IV fluids. Monitor bicarbonate and adjust the IV fluids accordingly. 2. Hypertension. Blood pressure controlled. 3. Diabetes mellitus. Continue insulin. 4. Leukocytosis, elevated, improving. Continue broad-spectrum antibiotics and adjust antibiotic according to blood culture. Pending blood culture results and urine culture did not show significant growth. I spent total 36 min including 25 min to coordinate care plan. TAMIKA/KERI Voice ID: [id number] Report ID: [id number] DAYANARA
--- NOTE | 2019-03-14 16:43 | PN ---
Date of Progress Note: 03/14/2019 Subjective: Patient is seen and examined. Chart reviewed and case discussed with RN and Dr. Boothe. Patient's cousin and other family members at the bedside. Patient was counseled regarding her noncom pliance with medications at home. Patient now complaining of constipation. Medications: List reviewed. Physical Examination: Vital Signs: Temperature 98.3, heart rate 88, blood pressure 188/97, respirations 20, O2 100% on piper m air. General: Awake, alert, oriented x3, ill-appearing female. CV: S1, S2. Regular rate and rhythm. Peripheral pulses weak. Respiratory: Diminished breath sounds. No wheezing or stridor. Gastrointestinal: Abdomen is soft, nontender, nondistended. Positive bowel sounds. No guarding or rigidity. Extremities: No clubbing, cyanosis, or edema. Neurologic: Nonfocal. Laboratory Data: Sodium 142, potassium 3.6, chloride 114, CO2 of 18, BUN 66, creatinine 5.94, glucos e 89, lactate 1.1, calcium 7.8, phosphorus 3.6, magnesium 2.4, albumin 1.8. WBC 17.3, H and H of 10. 3 and 31.3, platelets 299, neutrophils 82%. UA shows negative nitrite, negative leukocyte esterase, 10 to 20 wbc's. Urine bacteria present. Blood cultures pending. Urine culture, no growth to date. CT scan of the abdomen and pelvis shows circumferential thickening in the soft tissues of the distal rectum and perianal region. The uniform circumferential thickening could favor infectious or inflam matory etiology rather than mass. No bowel obstruction, free air, or surgically emergent finding. N o hydronephrosis or obstructing ureteral calculi. The patient has renal vascular calcifications and nonobstructing calyx calculi. Isodense masses and pyelonephritis are not excluded. Correlation is n eeded with history and physical exam findings. Followup colonoscopy may be needed. Assessment: A 43-year-old female with: 1.Syncopal episode, likely related to dehydration, resolved. We will check orthostatic vital signs. 2.Diabetes mellitus type 2 with uncontrolled hyperglycemia, improved. We will continue with long-ac ting insulin and sliding scale as well as check Accu-Cheks, and IV fluids. 3.Acute on chronic kidney injury. Creatinine is improving with IV fluids with bicarb drip. Appreci ate Nephrology input. Patient did have stage 3 chronic kidney disease. Will likely need to be start ed on dialysis. Currently, patient is wanting to delay initiation. Patient is making good urine out put and electrolytes are within normal limits. 4.Hypermagnesemia, improved. 5.Urinary tract infection, acute cystitis without hematuria. We will start on Rocephin. 6.History of cerebrovascular accident. 7.Diabetic retinopathy. Patient has legal blindness. 8.Mixed hyperlipidemia, not on any medications. 9.Essential hypertension. Patient does not take any medications for blood pressure at home. We brennan l continue with p.r.n. medications. 10.Depression with anxiety, stable. 11.History of thyroid cancer. 12.Nicotine dependence with cigarette smoking. 13.Gastroesophageal reflux disease without esophagitis. We will continue home medications. 14.Deep venous thrombosis prophylaxis addressed. 15.Constipation. Patient has stool impaction. We will start on laxatives and enema as needed. 16.Noncompliance. 17.Diabetic gastroparesis. Reglan with meals. Plan: Likely discharge in the next 48 to 72 hours depending on clinical response. /KERI Voice ID: [id number] Report ID: [id number]
[2019-03-14] MEDS: ONDANSETRON 4 MG/2 ML VIAL IV PRN (17:52)
[2019-03-14] MEDS: INSULIN GLARGINE 100 UNITS/ML SQ SCH (17:57)
[2019-03-15] MEDS: NACHLORIDE 0.45% 1,000 ML IV SCH ×2 (00:54→15:20)
[2019-03-15] MEDS: ONDANSETRON 4 MG/2 ML VIAL IV PRN ×2 (00:55→09:16)
[2019-03-15] MEDS: MORPHINE 2 MG/ML SYR IV PRN ×2 (00:55→09:16)
[2019-03-15] MEDS: METOCLOPRAMIDE 10 MG/2mL INJ IV PRN (03:14)
[2019-03-15] MEDS: HYDRALAZINE HCL 25 MG TABLET PO PRN ×2 (05:31→18:00)
[2019-03-15 06:12] LABS: Absolute Lymphocytes (CBC) 1.9 K/uL (0.7-4.9); Basophils % 0.4 % (0-1.3); Hematocrit 28.7 % (36.0-45.0); Lymphocytes % 17.1 % (15.3-44.8); MPV 8.3 fL (7.6-11.3); RBC Red Blood Cell Count 3.28 M/uL (3.86-4.86)
[2019-03-15 06:24] LABS: Protime INR 0.88
[2019-03-15 07:01] LABS: Albumin 1.6 g/dL (3.4-5.0); Bilirubin Total 0.3 mg/dL (0.2-1.0); Phosphorus 4.8 mg/dL (2.5-4.9); Protein, Total 5.1 g/dL (6.4-8.2)
[2019-03-15 07:04] LABS: Potassium 2.8 mmol/L (3.5-5.1)
[2019-03-15] MEDS: INSULIN -REGULAR HUMAN 50 UNIT/0.5 ML ML SQ SCH ×4 (07:30→19:47)
[2019-03-15] MEDS: CEFTRIAXONE/SWI 1gm 1 GM/10 ML SYR IV SCH (08:10)
[2019-03-15] MEDS: POLYETHYL GLY 3350 17 GM/DOSE PO PRN (08:10)
[2019-03-15] MEDS: DOCUSATE NA 100 MG CAP PO SCH ×2 (08:10→20:35)
[2019-03-15] MEDS ORDERED: POTASSIUM 25 MEQ EFFERV TAB PO ONE (11:23)
--- NOTE | 2019-03-15 15:58 | PN ---
Date of Progress Note: 03/15/2019 Subjective: Patient was admitted with acute kidney injury on advanced chronic kidney disease seconda ry to gastroenteritis/gastroparesis. Physical Examination: VITAL SIGNS: Blood pressure 140/68, pulse of 82. CHEST: Clear to auscultation. HEART: S1, S2. Regular. ABDOMEN: Mild tenderness on the epigastric area. EXTREMITIES: No edema. Laboratory Data: WBC 11.1, H and H 10/28.7, platelets 276. Sodium 141, potassium 2.8, bicarb 19, BU N 54, creatinine 5.7, calcium 7.1, phosphorus 4.8, magnesium of 2. Current Medications: The patient on includes ceftriaxone, hydralazine, Tylenol, metoclopramide, Zofr an, insulin, IV fluids at 75 per hour. Assessment And Plan: 1.Acute kidney injury on advanced chronic kidney disease with progression to end-stage renal disease . I had long discussion with the patient in the presence of the family about the need to initiate re nal replacement therapy. Patient agreed on that. We will proceed with a PermCath placement and to i nitiate dialysis. 2.Urinary tract infection. Continue current antibiotic. 3.Hypokalemia. We will supplement cautiously. 4.Anemia of chronic kidney disease, stable. 5.Gastroparesis. Follow up with the primary. DEBBIE Voice ID: [id number] Report ID: [id number]
--- NOTE | 2019-03-15 16:08 | P.PN ---
Subjective Date of Service: 03/15/19 Patient seen and examined at bedside. Family at bedside. Chart reviewed and case discussed with nursing staff and Dtr. Beckman. Patient reports feeling tired this morning. Overnight, reported decreased urine output Review of Systems 10-point ROS is otherwise unremarkable Physical Examination - Vital Signs Temperature: 97.6 F Blood Pressure: 146/74 Pulse: 84 Respirations: 16 Pulse Ox (%): 100 - Physical Exam General: Alert, In no apparent distress HEENT: Atraumatic, PERRLA, Other (legal blindness), EOMI Neck: Supple, JVD not distended Respiratory: Clear to auscultation bilaterally, Normal air movement Cardiovascular: Regular rate/rhythm, Normal S1 S2 Gastrointestinal: Normal bowel sounds, No tenderness Musculoskeletal: No tenderness Integumentary: No rashes Neurological: Normal speech, Normal tone, Normal affect Lymphatics: No axilla or inguinal lymphadenopathy Assessment And Plan - Plan A 43-year-old female with: Acute on chronic kidney injury. - Creatinine improved, though continues to be elevated. It seems that patient may have progression of kidney disease as overnight, decreased urine output. Case was discussed with nephrology, who discussed with patient regarding further care. Patient agrees to initiate dialysis. Dr. Nunes consulted for permacath placement. - Likely to initiate dialysis tomorrow after permacath placement. Syncopal episode, likely related to dehydration, resolved. Diabetes mellitus type 2 with uncontrolled hyperglycemia, improved. - We will continue with long-acting insulin and sliding scale as well as check Accu-Cheks, and IV fluids. Hypermagnesemia, Resolved. Urinary tract infection, acute cystitis without hematuria. -We will continue on Rocephin. History of cerebrovascular accident. Diabetic retinopathy. -Patient has legal blindness. Mixed hyperlipidemia, not on any medications. Essential hypertension. Patient does not take any medications for blood pressure at home. We will continue with p.r.n. medications. Depression with anxiety, stable. History of thyroid cancer. Nicotine dependence with cigarette smoking. Gastroesophageal reflux disease without esophagitis. We will continue home medications. Deep venous thrombosis prophylaxis addressed. Constipation. Patient has stool impaction. We will start on laxatives and enema as needed. Noncompliance. Diabetic gastroparesis. Reglan with meals. Plan: Pending permacath placement, initiation of dialysis and outpatient dialysis set-up
[2019-03-15] MEDS: INSULIN GLARGINE 100 UNITS/ML SQ SCH (16:34)
--- NOTE | 2019-03-15 17:58 | CON ---
Date of Consultation: 03/15/2019 Brief History Of Present Illness: Patient is a 43-year-old female with multiple comorbiditi es including blindness, diabetes, retinopathy, hypertension, depression, thyroid cancer, hyperlipidem ia, GERD, CKD, CVA, who was in her usual state of health, however, has noncompliance with blood sugar and diabetes, also past medical history of diabetic gastroparesis, who had decreased p.o. intake, na usea, vomiting, elevated blood sugars and came to the ER for evaluation. She had been admitted and w orked up and seen by Dr. Boothe, who ultimately recommended she have need for placement of a tunneled h emodialysis catheter and initiation of hemodialysis as her kidney function continues to decline. Past Medical History: Significant for diabetes, insulin requiring; legally blind due to diabetic ret inopathy; hypertension; depression; anxiety; thyroid cancer; hyperlipidemia; GERD; chronic kidney dis ease; CVA x3. Past Surgical History: Includes cholecystectomy, thyroidectomy, multiple eye surgery, . Social History: She is , has a daughter. She disabled, lives with [id number]. She admit s smoking half a pack to a pack per day. Denies alcohol or recreational drug use. Father had heart disease, hypertension, thyroid problems. Mother had diabetes and kidney disease. Review of Systems: A 10-point review of systems other than HPI, denies. Physical Examination: Vital Signs: At the time of examination, her BMI is 24. Her vital signs were blood pressure 140/68, SpO2 not checked, pulse is 82 beats per minute, respiratory rate 18, temperature 97.2. General: She is awake, alert, and oriented. Psychiatric: She is appropriate and conversive. HEENT: She is normocephalic. Chest: Normal expansion and excursion. Cardiovascular: Regular rate and rhythm. Pulmonary: Clear to auscultation bilaterally. Skin: Warm and dry. Laboratory Data: Reveals white blood cell count of 11.1, hemoglobin 10.0, hematocrit 28.7, platelet count is 276. Her PT was 10.4, INR 0.88. Her sodium was 141, potassium 2.8, chloride 110, carbon di oxide was 19, BUN 54, creatinine 5.7. Her glucose is 147. Lactic acid was 1.1 yesterday, phos is 4. 8, magnesium 2.0. Her AST is 111, ALT 63, alkaline phosphatase is 192. She had an abdominal CT on 03/13 which was officially read as circumferential wall thickening and soft tissue distal rectum peria nal lesion. This is uniform circumferentially and would favor infectious inflammatory etiology aroun d the mass. No bowel obstruction or surgically emergent findings. The patient's vascular calcificat ion is not obstructing isodense mass and pyelonephritis is not excluded. No hydronephrosis or obstru cting ureteral calculi. Assessment And Plan: This is a 43-year-old female who comes in with worsening kidney function. Dial ysis has been recommended by Dr. Boothe and as such I have explained the risks, benefits, and alternati ves of placement of a tunneled hemodialysis catheter including, but not limited to bleeding, infectio n, damage to surrounding tissues, injury to vital structures including causing a collapsed lung/pneum othorax, need for further operating procedure. MANUELITO/KERI Voice ID: [id number] Report ID: [id number]
[2019-03-16] MEDS: ONDANSETRON 4 MG/2 ML VIAL IV PRN (01:42)
[2019-03-16] MEDS: NACHLORIDE 0.45% 1,000 ML IV SCH (01:42)
[2019-03-16] MEDS: METOCLOPRAMIDE 10 MG/2mL INJ IV PRN (03:48)
[2019-03-16] MEDS: HYDRALAZINE HCL 25 MG TABLET PO PRN (05:20)
[2019-03-16 06:40] LABS: Albumin 1.6 g/dL (3.4-5.0); Phosphorus 5.5 mg/dL (2.5-4.9); Potassium 3.3 mmol/L (3.5-5.1)
[2019-03-16] MEDS: INSULIN -REGULAR HUMAN 50 UNIT/0.5 ML ML SQ SCH ×4 (07:30→20:55)
[2019-03-16] MEDS: DOCUSATE NA 100 MG CAP PO SCH ×2 (08:05→20:55)
[2019-03-16] MEDS: CEFTRIAXONE/SWI 1gm 1 GM/10 ML SYR IV SCH (08:07)
[2019-03-16] MEDS ORDERED: FENTANYL CITR 100 MCG/2 ML ONE (09:07)
[2019-03-16] MEDS ORDERED: LIDOCAINE 2% MPF 5 ML VIAL ONE (09:07)
[2019-03-16] MEDS ORDERED: PROPOFOL 200 MG/20 ML VIAL IV ONE (09:07)
[2019-03-16] MEDS ORDERED: MIDAZOLAM HCL 2 MG/2 ML INJ ONE (09:10)
[2019-03-16] MEDS ORDERED: NA CHLORIDE 0.9% 500 ML ONE (09:25)
[2019-03-16] MEDS: BUPIVACA 0.25%/EPI 0.0005% MDV 50 ML VIAL ONE ×2 (10:00→10:30)
[2019-03-16] MEDS ORDERED: NS 0.9% VIAL 40 ML ONE (10:06)
[2019-03-16] MEDS ORDERED: HEPARIN 5000 UNIT/ML 1 ML VIAL ONE ×2 (10:06→10:20)
[2019-03-16] MEDS ORDERED: NS 0.9% VIAL 10 ML ONE (10:22)
--- NOTE | 2019-03-16 10:56 | P.OP ---
Preoperative diagnosis: End Stage Renal Disease Postoperative diagnosis: End Stage Renal Disease Primary procedure: Placement of Tunnelled Hemodialysis Catheter Secondary procedure: Ultrasound Guidance and Micro intoducer used Anesthesia: GETA + Local Estimated blood loss: <5cc Specimen: None Findings: Dark non-pulsatile blood returned Complications: None Implants: 24 cm hemodialysis catheter Transferred to: Recovery Room Condition: Good
--- NOTE | 2019-03-16 11:13 | RAD REPORT ---
EXAM DESCRIPTION: RAD - Fluoroscopy <1 Hour - 03/16/2019 11:04 am CLINICAL HISTORY: Venous catheter insertion. HEMODIALYSIS CATH INSERT IN OR 4 COMPARISON: Vent Perfusion VQ Scan dated 07/04/2018 FINDINGS: Fluoroscopy time: 0.4 minutes
[2019-03-16] MEDS: FENTANYL CITR 100 MCG/2 ML ONE ×4 (11:35→11:50)
--- NOTE | 2019-03-16 11:37 | RAD REPORT ---
EXAM DESCRIPTION: RAD - Chest Single View - 03/16/2019 11:17 am CLINICAL HISTORY: Device placement central venous line placement COMPARISON: March 13, 2019 FINDINGS: A central venous line has been inserted into the superior vena cava. A pneumothorax is no t seen. The lungs appear clear of acute infiltrate. The heart is normal size. IMPRESSION: Central venous line with its tip in the superior vena cava. No pneumothorax
[2019-03-16] MEDS: CALCITROL 0.25 MCG CAP PO SCH (12:47)
[2019-03-16] MEDS: MORPHINE 2 MG/ML SYR IV PRN ×2 (14:22→20:55)
--- NOTE | 2019-03-16 15:05 | P.PN ---
Subjective Date of Service: 03/16/19 Patient seen and examined at bedside. Family at bedside. Chart reviewed and case discussed with nursing staff and Dr. Beckman. Patient reports feeling tired this morning. Pending tunneled HD catheter placement and dialysis Review of Systems 10-point ROS is otherwise unremarkable Physical Examination - Vital Signs Temperature: 97.5 F Blood Pressure: 161/86 Pulse: 88 Respirations: 18 Pulse Ox (%): 100 - Physical Exam General: Alert, In no apparent distress HEENT: Atraumatic, PERRLA, EOMI Neck: Supple, JVD not distended Respiratory: Clear to auscultation bilaterally, Normal air movement Cardiovascular: Regular rate/rhythm, Normal S1 S2 Gastrointestinal: Normal bowel sounds, No tenderness Musculoskeletal: No tenderness Integumentary: No rashes Neurological: Normal speech, Normal tone, Normal affect Lymphatics: No axilla or inguinal lymphadenopathy Assessment And Plan - Plan A 43-year-old female with: Acute on chronic kidney injury. - Creatinine improved, though continues to be elevated. It seems that patient may have progression of kidney disease. Case was discussed with nephrology, who discussed with patient regarding further care. Patient agrees to initiate dialysis. Dr. Nunes consulted for permacath placement, pending placement today. - initiate dialysis after catheter placement, per nephrology. SW consulted for outpatient HD setup. Syncopal episode, likely related to dehydration, resolved. Diabetes mellitus type 2 with uncontrolled hyperglycemia, improved. - We will continue with long-acting insulin and sliding scale as well as check Accu-Cheks, and IV fluids. Hypermagnesemia, Resolved. Urinary tract infection, acute cystitis without hematuria. -UCx negative for any growth. No other evidence of infection at this time. We will discontinue on Rocephin. History of cerebrovascular accident. Diabetic retinopathy. -Patient has legal blindness. Mixed hyperlipidemia, not on any medications. Essential hypertension. Patient does not take any medications for blood pressure at home. We will continue with p.r.n. medications. Depression with anxiety, stable. History of thyroid cancer. Nicotine dependence with cigarette smoking. Gastroesophageal reflux disease without esophagitis. We will continue home medications. Deep venous thrombosis prophylaxis addressed. Constipation. Patient has stool impaction. We will start on laxatives and enema as needed. Noncompliance. Diabetic gastroparesis. Reglan with meals. Plan: Pending permacath placement, initiation of dialysis and outpatient dialysis set-up
--- NOTE | 2019-03-16 16:54 | PN ---
Date of Progress Note: 03/16/2019 Subjective: Patient doing the same. Patient is status post right IJ PermCath, complaining of some p ain after surgery. Physical Examination: Vital Signs: Blood pressure 157/83, pulse of 97. Chest: Clear to auscultation. Heart: S1, S2. Regular. Abdomen: Soft, nontender. Extremities: No edema. Laboratory Data: H and H of 06/13.7. Sodium 138, potassium 3.3, bicarb 19, BUN 49, creatinine 5.6, calcium 7.1, phosphorus 5.5. Current Medications: The patient on its include: 1.Ceftriaxone. 2.Hydralazine 25 as needed. 3.Metoclopramide. 4.Insulin. Assessment And Plan: 1.Chronic kidney disease stage 5, progression to end-stage renal disease. We will initiate dialysis today. 2.Hypertension. We will follow up with blood pressure after dialysis. 3.Secondary hyperparathyroidism. Continue calcitriol. 4.Anemia of chronic kidney disease, stable. We will monitor. 5.Diabetes as by Primary. 6.Gastroparesis. Follow up with Primary. Continue symptomatic treatment. 7.Urinary tract infection. Continue current antibiotic. CASSIE/KERI Voice ID: [id number] Report ID: [id number]
[2019-03-16] MEDS: INSULIN GLARGINE 100 UNITS/ML SQ SCH (17:00)
--- NOTE | 2019-03-16 22:41 | OP ---
Date of Procedure: 03/16/2019 Surgeon: Tristan Nunes MD, Preoperative Diagnosis: End-stage renal disease. Postoperative Diagnosis: End-stage renal disease. Procedure Performed: Placement of tunneled hemodialysis catheter using ultrasound guidance and microintroducer set in the jugular position. The right IJ was the position of the catheter. Anesthesia: General endotracheal plus local with 0.25% Marcaine with epinephrine. Estimated Blood Loss: Less than 5 cc. Specimen: None. Findings: Dark, nonpulsatile blood return. Complication: None. Implants: Tunnelled hemodialysis catheter placed in the right internal jugular vein. Disposition: Transferred to recovery room in good condition. Procedure In Detail: After informed consent obtained, patient brought to the operating room, prepped and draped in usual sterile fashion. After adequate anesthesia achieved, the patient was placed in steep Trendelenburg position. Using ultrasound guidance, I placed a microintroducer set needle into the right internal jugular vein on the first attempt. This microwire was then advanced and verified with fluoroscopy at this time and ultrasound guidance. After the wire was positioned appropriately, a small zeyad incision was made in the neck and the microintroducer sheath was placed. A standard wire was then brought in and verified with fluoroscopy as well as ultrasound guidance to be in the internal jugular vein and into the SVC. After this was confirmed, using fluoroscopy as described, I created a tract along the chest wall after appropriately anesthetizing the skin and the entire tract and placed a tunneling device bringing the catheter up through the insertion site. After this was positioned appropriately, sequential dilatation was performed using Seldinger technique through the standard wire and the introducer sheath was placed. The catheter was then placed via the introducer sheath and the introducer sheath removed. The fluoroscopy was then used to verify position. The catheter was found to be in the SVC, easily flushed and withdrew blood quite easily, and was packed with saline initially until completely clear and then packed with super flush 2 cc per port. Patient was then taken out of the Trendelenburg position. The position was once again verified with fluoroscopy and the skin incision copiously irrigated. The catheter secured to the skin using a 2-0 nylon suture and the skin closed using 2-0 nylon interrupted sutures. Sterile dressings were then placed over top. The patient tolerated the procedure well without evidence of complications, transferred back in good condition. All counts were correct at the end of the case. MANUELITO/KERI Voice ID: [id number] Report ID: [id number] DAYANARA
[2019-03-17] MEDS: MORPHINE 2 MG/ML SYR IV PRN ×4 (03:18→21:15)
[2019-03-17 06:48] LABS: Albumin 1.5 g/dL (3.4-5.0); Phosphorus 4.1 mg/dL (2.5-4.9); Potassium 3.7 mmol/L (3.5-5.1)
[2019-03-17] MEDS: DOCUSATE NA 100 MG CAP PO SCH ×2 (08:04→21:00)
[2019-03-17] MEDS: INSULIN -REGULAR HUMAN 50 UNIT/0.5 ML ML SQ SCH ×4 (08:04→21:14)
--- NOTE | 2019-03-17 12:16 | P.PN ---
Subjective Date of Service: 03/17/19 Subjective: Improving Today no new complaints BP elevated , will monitor for now and adjust Bp meds id persistently elevated 2nd HD today then TTsat out Pt dialysis arrangement corrceted CA ~9.5 Physical Examination - Vital Signs Temperature: 98.3 F Blood Pressure: 160/83 Pulse: 86 Respirations: 16 Pulse Ox (%): 100 - Physical Exam General: In no apparent distress, Oriented x3 HEENT: Atraumatic Neck: Supple, JVD not distended, Without JVD or thyroid abnormality Respiratory: Clear to auscultation bilaterally, Normal air movement Cardiovascular: Regular rate/rhythm, Normal S1 S2, No gallops, No rubs, No murmurs, Other (trace LE edema ), Edema Assessment And Plan - Current Problems (Diagnosis) (1) CKD (chronic kidney disease), stage V Current Visit: No Status: Acute - Plan ESRD started on HD 2nd HD today then TTsat renal dose meds HTN currently not on meds Bp elevated today if persistently elevated then will adjust Benito meds MBD corrected calcium wnl Diabetes with gastroparesis as by Primary. legally blind Due to DM retinopathy
--- NOTE | 2019-03-17 14:22 | P.PN ---
Subjective Date of Service: 03/17/19 Patient seen and examined at bedside. Family at bedside. Chart reviewed and case discussed with nursing staff and Dr. Beckman. Patient reports feeling tired this morning. s/p tunneled HD catheter placement and 1 session of dialysis ; pending a dialysis session today Review of Systems 10-point ROS is otherwise unremarkable Physical Examination - Vital Signs Temperature: 98.3 F Blood Pressure: 160/83 Pulse: 86 Respirations: 16 Pulse Ox (%): 100 - Physical Exam General: Alert, In no apparent distress, Oriented x3 HEENT: Atraumatic, PERRLA, Other (Legally blind), EOMI Neck: Supple, JVD not distended Respiratory: Clear to auscultation bilaterally, Normal air movement Cardiovascular: Regular rate/rhythm, Normal S1 S2 Gastrointestinal: Normal bowel sounds, No tenderness Musculoskeletal: No tenderness Integumentary: No rashes Neurological: Normal speech, Normal tone, Normal affect Lymphatics: No axilla or inguinal lymphadenopathy Assessment And Plan - Plan A 43-year-old female with: Acute on chronic kidney injury. - It seems that patient may have progression of kidney disease. Case was discussed with nephrology, who discussed with patient regarding further care. Patient agrees to initiate dialysis. Dr. Nunes consulted for permacath placement. Patient is s/p HD catheter plaecement and 1st dialysis session. - dialysis session today then TThSat, per nephrology. SW consulted for outpatient HD setup. Syncopal episode, likely related to dehydration, resolved. Diabetes mellitus type 2 with uncontrolled hyperglycemia, improved. - We will continue with long-acting insulin and sliding scale as well as check Accu-Cheks, and IV fluids. Hypermagnesemia, Resolved. Urinary tract infection, acute cystitis without hematuria. -UCx negative for any growth. No other evidence of infection at this time. We will discontinue on Rocephin. History of cerebrovascular accident. Diabetic retinopathy. -Patient has legal blindness. Mixed hyperlipidemia, not on any medications. Essential hypertension. Patient does not take any medications for blood pressure at home. We will continue with p.r.n. medications. Depression with anxiety, stable. History of thyroid cancer. Nicotine dependence with cigarette smoking. Gastroesophageal reflux disease without esophagitis. We will continue home medications. Deep venous thrombosis prophylaxis addressed. Constipation. Patient has stool impaction. We will start on laxatives and enema as needed. Noncompliance. Diabetic gastroparesis. Reglan with meals. Plan: Pending dialysis and outpatient dialysis set-up
[2019-03-17 15:03] VITALS: BMI 25.9
[2019-03-17] MEDS: INSULIN GLARGINE 100 UNITS/ML SQ SCH (16:48)
[2019-03-18 07:02] LABS: Albumin 1.4 g/dL (3.4-5.0); Phosphorus 3.8 mg/dL (2.5-4.9); Potassium 3.5 mmol/L (3.5-5.1)
[2019-03-18] MEDS: INSULIN -REGULAR HUMAN 50 UNIT/0.5 ML ML SQ SCH ×4 (07:30→21:04)
[2019-03-18] MEDS: DOCUSATE NA 100 MG CAP PO SCH ×2 (08:06→21:05)
[2019-03-18] MEDS: CALCITROL 0.25 MCG CAP PO SCH (08:07)
[2019-03-18] MEDS: ACETAMINOPHEN 500 MG TAB PO PRN ×3 (08:09→21:05)
--- NOTE | 2019-03-18 13:22 | P.PN ---
Subjective Date of Service: 03/18/19 Subjective: No new changes Today no new complaints BP controoled HD TTAst pending out Pt dialysis arrangement Hold hydralazine before HD Physical Examination - Vital Signs Temperature: 98.4 F Blood Pressure: 140/68 Pulse: 84 Respirations: 16 Pulse Ox (%): 98 - Physical Exam General: Alert, In no apparent distress, Oriented x3 HEENT: Atraumatic Neck: Supple, Without JVD or thyroid abnormality Respiratory: Clear to auscultation bilaterally, Normal air movement Cardiovascular: Regular rate/rhythm, Normal S1 S2, No gallops, No rubs, Other ( trace ), Edema Gastrointestinal: Normal bowel sounds, Soft and benign Assessment And Plan - Current Problems (Diagnosis) (1) CKD (chronic kidney disease), stage V Current Visit: No Status: Acute - Plan ESRD will cont HD TTsat renal dose meds HTN controlled MBD corrected calcium wnl Diabetes with gastroparesis as by Primary. legally blind Due to DM retinopathy
--- NOTE | 2019-03-18 14:05 | RAD REPORT ---
EXAM DESCRIPTION: RAD - Neck Soft Tissue - 03/18/2019 1:41 pm CLINICAL HISTORY: Neck pain FINDINGS: Prevertebral soft tissues appear normal. Visualized airway appears unremarkable. No abnormality cervical spine seen.
--- NOTE | 2019-03-18 14:54 | P.PN ---
Subjective Date of Service: 03/18/19 Patient seen and examined at bedside. Family at bedside. Chart reviewed and case discussed with nursing staff and Dr. Beckman. No complaints this am. s/p tunneled HD catheter placement and dialysis Review of Systems 10-point ROS is otherwise unremarkable Physical Examination - Vital Signs Temperature: 98.4 F Blood Pressure: 140/68 Pulse: 84 Respirations: 16 Pulse Ox (%): 98 - Physical Exam General: Alert, In no apparent distress HEENT: Atraumatic, PERRLA, Other (legally blind), EOMI Neck: Supple, JVD not distended Respiratory: Clear to auscultation bilaterally, Normal air movement Cardiovascular: Regular rate/rhythm, Normal S1 S2 Gastrointestinal: Normal bowel sounds, No tenderness Musculoskeletal: No tenderness Integumentary: No rashes Neurological: Normal speech, Normal tone, Normal affect Lymphatics: No axilla or inguinal lymphadenopathy Assessment And Plan - Plan A 43-year-old female with: Acute on chronic kidney injury. - It seems that patient may have progression of kidney disease. Case was discussed with nephrology, who discussed with patient regarding further care. Patient agrees to initiate dialysis. Dr. Nunes consulted for permacath placement. Patient is s/p HD catheter plaecement and 1st dialysis session. - dialysis session today then TThSat, per nephrology. SW consulted for outpatient HD setup. Syncopal episode, likely related to dehydration, resolved. Diabetes mellitus type 2 with uncontrolled hyperglycemia, improved. - We will continue with long-acting insulin and sliding scale as well as check Accu-Cheks, and IV fluids. Hypermagnesemia, Resolved. Urinary tract infection, acute cystitis without hematuria. -UCx negative for any growth. No other evidence of infection at this time. We will discontinue on Rocephin. History of cerebrovascular accident. Diabetic retinopathy. -Patient has legal blindness. Mixed hyperlipidemia, not on any medications. Essential hypertension. Patient does not take any medications for blood pressure at home. We will continue with p.r.n. medications. Depression with anxiety, stable. History of thyroid cancer. Nicotine dependence with cigarette smoking. Gastroesophageal reflux disease without esophagitis. We will continue home medications. Deep venous thrombosis prophylaxis addressed. Constipation. Patient has stool impaction. We will start on laxatives and enema as needed. Noncompliance. Diabetic gastroparesis. Reglan with meals. Plan: Pending dialysis and outpatient dialysis set-up
[2019-03-18] MEDS: INSULIN GLARGINE 100 UNITS/ML SQ SCH (17:13)
[2019-03-18 17:53] LABS: Hepatitis C Virus RNA (PCR)log <1.18 log IU/mL
[2019-03-18] MEDS: ONDANSETRON 4 MG/2 ML VIAL IV PRN (21:13)
[2019-03-19 05:44] LABS: Albumin 1.3 g/dL (3.4-5.0); Phosphorus 4.2 mg/dL (2.5-4.9); Potassium 4.1 mmol/L (3.5-5.1)
[2019-03-19] MEDS: INSULIN -REGULAR HUMAN 50 UNIT/0.5 ML ML SQ SCH ×4 (08:36→21:02)
[2019-03-19] MEDS: DOCUSATE NA 100 MG CAP PO SCH ×2 (08:37→20:57)
[2019-03-19] MEDS: ACETAMINOPHEN 500 MG TAB PO PRN ×2 (08:39→19:14)
[2019-03-19] MEDS: HYDRALAZINE HCL 25 MG TABLET PO PRN (12:10)
--- NOTE | 2019-03-19 13:40 | P.PN ---
Subjective Date of Service: 03/19/19 Subjective: No new changes Today no new complaints BP controoled HD TTAst pending out Pt dialysis arrangement Hold hydralazine before HD Physical Examination - Vital Signs Temperature: 97.9 F Blood Pressure: 181/80 Pulse: 90 Respirations: 16 Pulse Ox (%): 100 - Physical Exam General: In no apparent distress, Oriented x3 HEENT: Atraumatic Neck: Supple, Without JVD or thyroid abnormality Respiratory: Clear to auscultation bilaterally, Normal air movement Cardiovascular: Other (trace edema ), Edema Gastrointestinal: Normal bowel sounds, Soft and benign Assessment And Plan - Current Problems (Diagnosis) (1) CKD (chronic kidney disease), stage V Current Visit: No Status: Acute - Plan ESRD will cont HD TTsat renal dose meds HTN controlled MBD corrected calcium wnl Diabetes with gastroparesis as by Primary. legally blind Due to DM retinopathy
--- NOTE | 2019-03-19 17:04 | P.PN ---
Subjective Date of Service: 03/19/19 Subjective: No new changes Patient seen and examined at bedside. Family at bedside. Chart reviewed and case discussed with nursing staff and Dr. Beckman. No complaints this am. s/p tunneled HD catheter placement and dialysis Review of Systems 10-point ROS is otherwise unremarkable Physical Examination - Vital Signs Temperature: 97.9 F Blood Pressure: 169/81 Pulse: 88 Respirations: 16 Pulse Ox (%): 100 - Physical Exam General: Alert, In no apparent distress, Oriented x3 HEENT: Atraumatic, PERRLA, Other (Legally blind), EOMI Neck: Supple, JVD not distended Respiratory: Clear to auscultation bilaterally, Normal air movement Cardiovascular: Regular rate/rhythm, Normal S1 S2 Gastrointestinal: Normal bowel sounds, No tenderness Musculoskeletal: No tenderness Integumentary: No rashes Neurological: Normal speech, Normal tone, Normal affect Lymphatics: No axilla or inguinal lymphadenopathy Assessment And Plan - Plan A 43-year-old female with: Acute on chronic kidney injury. - It seems that patient may have progression of kidney disease. Case was discussed with nephrology, who discussed with patient regarding further care. Patient agrees to initiate dialysis. Dr. Nunes consulted for permacath placement. Patient is s/p HD catheter placement and dialysis session. - dialysis session today then TThSat, per nephrology. SW consulted for outpatient HD setup. Syncopal episode, likely related to dehydration, resolved. Diabetes mellitus type 2 with uncontrolled hyperglycemia, improved. - We will continue with long-acting insulin and sliding scale as well as check Accu-Cheks, and IV fluids. Hypermagnesemia, Resolved. Urinary tract infection, acute cystitis without hematuria. -UCx negative for any growth. No other evidence of infection at this time. We will discontinue on Rocephin. History of cerebrovascular accident. Diabetic retinopathy. -Patient has legal blindness. Mixed hyperlipidemia, not on any medications. Essential hypertension. Patient does not take any medications for blood pressure at home. We will continue with p.r.n. medications. Depression with anxiety, stable. History of thyroid cancer. Nicotine dependence with cigarette smoking. Gastroesophageal reflux disease without esophagitis. We will continue home medications. Deep venous thrombosis prophylaxis addressed. Constipation. Patient has stool impaction. We will start on laxatives and enema as needed. Noncompliance. Diabetic gastroparesis. Reglan with meals. Plan: Pending dialysis and outpatient dialysis set-up
[2019-03-19] MEDS: INSULIN GLARGINE 100 UNITS/ML SQ SCH (18:21)
[2019-03-20] MEDS: ACETAMINOPHEN 500 MG TAB PO PRN ×2 (00:52→18:32)
[2019-03-20 05:56] LABS: Albumin 1.4 g/dL (3.4-5.0); Phosphorus 2.7 mg/dL (2.5-4.9)
[2019-03-20] MEDS: INSULIN -REGULAR HUMAN 50 UNIT/0.5 ML ML SQ SCH ×4 (08:26→21:31)
[2019-03-20] MEDS: DOCUSATE NA 100 MG CAP PO SCH ×2 (08:26→21:00)
[2019-03-20] MEDS: HYDRALAZINE HCL 25 MG TABLET PO PRN ×2 (08:30→14:26)
[2019-03-20] MEDS: CALCITROL 0.25 MCG CAP PO SCH (09:22)
--- NOTE | 2019-03-20 11:03 | P.PN ---
Subjective Date of Service: 03/20/19 Subjective: No new changes Subjective Pt with with ESRD , started on HD now Today no new complaints BP controoled HD TTAst pending out Pt dialysis arrangement Physical Examination - Vital Signs Temperature: 98.5 F Blood Pressure: 161/77 Pulse: 82 Respirations: 18 Pulse Ox (%): 99 - Physical Exam General: In no apparent distress, Oriented x3 HEENT: Atraumatic Neck: Supple, Without JVD or thyroid abnormality Respiratory: Clear to auscultation bilaterally Cardiovascular: No edema, Regular rate/rhythm, No gallops, No rubs, No murmurs Gastrointestinal: Normal bowel sounds, Soft and benign, Non-distended Integumentary: No rashes Assessment And Plan - Current Problems (Diagnosis) (1) CKD (chronic kidney disease), stage V Current Visit: No Status: Acute - Plan ESRD will cont HD TTsat renal dose meds HTN controlled MBD corrected calcium wnl Diabetes with gastroparesis on reglan as by Primary. legally blind Due to DM retinopathy
--- NOTE | 2019-03-20 11:45 | P.PN ---
Subjective Date of Service: 03/20/19 Subjective: No new changes, No C/O voiced Patient seen and examined at bedside. Family at bedside. Chart reviewed and case discussed with nursing staff and Dr. Beckman. No complaints this am. s/p tunneled HD catheter placement and dialysis Review of Systems 10-point ROS is otherwise unremarkable Physical Examination - Vital Signs Temperature: 98.5 F Blood Pressure: 161/77 Pulse: 82 Respirations: 18 Pulse Ox (%): 99 - Physical Exam General: Alert, In no apparent distress, Oriented x3 HEENT: Atraumatic, PERRLA, Other (Legally blind), EOMI Neck: Supple, JVD not distended Respiratory: Clear to auscultation bilaterally, Normal air movement Cardiovascular: Regular rate/rhythm, Normal S1 S2 Gastrointestinal: Normal bowel sounds, No tenderness Musculoskeletal: No tenderness Integumentary: No rashes Neurological: Normal speech, Normal tone, Normal affect Lymphatics: No axilla or inguinal lymphadenopathy Assessment And Plan - Plan A 43-year-old female with: Acute on chronic kidney injury. - It seems that patient may have progression of kidney disease. Case was discussed with nephrology, who discussed with patient regarding further care. Patient agrees to initiate dialysis. Dr. Nunes consulted for permacath placement. Patient is s/p HD catheter placement and dialysis session. - dialysis session today then TThSat, per nephrology. SW consulted for outpatient HD setup. Syncopal episode, likely related to dehydration, resolved. Diabetes mellitus type 2 with uncontrolled hyperglycemia, improved. - We will continue with long-acting insulin and sliding scale as well as check Accu-Cheks, and IV fluids. Hypermagnesemia, Resolved. Urinary tract infection, acute cystitis without hematuria. -UCx negative for any growth. No other evidence of infection at this time. We will discontinue on Rocephin. History of cerebrovascular accident. Diabetic retinopathy. -Patient has legal blindness. Mixed hyperlipidemia, not on any medications. Essential hypertension. Patient does not take any medications for blood pressure at home. We will continue with p.r.n. medications. Depression with anxiety, stable. History of thyroid cancer. Nicotine dependence with cigarette smoking. Gastroesophageal reflux disease without esophagitis. We will continue home medications. Deep venous thrombosis prophylaxis addressed. Constipation. Patient has stool impaction. We will start on laxatives and enema as needed. Noncompliance. Diabetic gastroparesis. Reglan with meals. Plan: Pending dialysis and outpatient dialysis set-up
[2019-03-20 12:42] LABS: HBsAG Nonreactive (Nonreactive)
[2019-03-20] MEDS: INSULIN GLARGINE 100 UNITS/ML SQ SCH (16:20)
[2019-03-21] MEDS: INSULIN -REGULAR HUMAN 50 UNIT/0.5 ML ML SQ SCH ×4 (07:30→20:20)
[2019-03-21] MEDS: DOCUSATE NA 100 MG CAP PO SCH ×2 (09:00→20:20)
--- NOTE | 2019-03-21 10:52 | P.PN ---
Subjective Date of Service: 03/21/19 Subjective: No new changes, No C/O voiced Patient seen and examined at bedside. Family at bedside. Chart reviewed and case discussed with nursing staff and Dr. Beckman. No complaints this am. s/p tunneled HD catheter placement and dialysis Pending outpatient chair time set up Review of Systems 10-point ROS is otherwise unremarkable Physical Examination - Vital Signs Temperature: 98.4 F Blood Pressure: 141/79 Pulse: 93 Respirations: 18 Pulse Ox (%): 98 - Physical Exam General: Alert, In no apparent distress HEENT: Atraumatic, PERRLA, Other (Legally bline), EOMI Neck: Supple, JVD not distended Respiratory: Clear to auscultation bilaterally, Normal air movement Cardiovascular: Regular rate/rhythm, Normal S1 S2 Gastrointestinal: Normal bowel sounds, No tenderness Musculoskeletal: No tenderness Integumentary: No rashes Neurological: Normal speech, Normal tone, Normal affect Lymphatics: No axilla or inguinal lymphadenopathy Assessment And Plan - Plan A 43-year-old female with: Acute on chronic kidney injury. - It seems that patient may have progression of kidney disease. Case was discussed with nephrology, who discussed with patient regarding further care. Patient agrees to initiate dialysis. Dr. Nunes consulted for permacath placement. Patient is s/p HD catheter placement and dialysis session. - dialysis session today then TThSat, per nephrology. SW consulted for outpatient HD setup. Syncopal episode, likely related to dehydration, resolved. Diabetes mellitus type 2 with uncontrolled hyperglycemia, improved. - We will continue with long-acting insulin and sliding scale as well as check Accu-Cheks, and IV fluids. Hypermagnesemia, Resolved. Urinary tract infection, acute cystitis without hematuria. -UCx negative for any growth. No other evidence of infection at this time. We will discontinue on Rocephin. History of cerebrovascular accident. Diabetic retinopathy. -Patient has legal blindness. Mixed hyperlipidemia, not on any medications. Essential hypertension. Patient does not take any medications for blood pressure at home. We will continue with p.r.n. medications. Depression with anxiety, stable. History of thyroid cancer. Nicotine dependence with cigarette smoking. Gastroesophageal reflux disease without esophagitis. We will continue home medications. Deep venous thrombosis prophylaxis addressed. Constipation. Patient has stool impaction. We will start on laxatives and enema as needed. Noncompliance. Diabetic gastroparesis. Reglan with meals. Plan: Pending dialysis and outpatient dialysis set-up
[2019-03-21] MEDS: INSULIN GLARGINE 100 UNITS/ML SQ SCH (18:06)
[2019-03-21 20:54] VITALS: O2SAT 98
--- NOTE | 2019-03-22 01:58 | PN ---
Date of Progress Note: 03/21/2019 Chief Complaint: End-stage renal disease, on dialysis. History Of Present Illness: Patient is started on dialysis 3 times per week on Thursday, , . She is awaiting arrangement for outpatient dialysis. She received dialysis on Thursday. Review of Systems: Denies fevers or chills. Physical Examination: LUNGS: Clear to auscultation bilaterally. HEART: S1-S2. ABDOMEN: Soft, benign. EXTREMITIES: Slight edema. Impression And Plan: 1.End-stage renal disease, next dialysis tomorrow. 2.Renal osteodystrophy. Continue renal diet and binders. 3.Hypertension. Blood pressure controlled. 4.Diabetes mellitus with diabetic gastroparesis on Reglan. Continue treatment per primary team. 5.Hypertension, controlled. Continue current medication. TAMIKA/KERI Voice ID: [id number] Report ID: [id number]
[2019-03-22 04:45] LABS: Absolute Lymphocytes (CBC) 2.2 K/uL (0.7-4.9); Basophils % 0.8 % (0-1.3); Hematocrit 25.9 % (36.0-45.0); Lymphocytes % 23.3 % (15.3-44.8); MPV 8.3 fL (7.6-11.3); RBC Red Blood Cell Count 2.88 M/uL (3.86-4.86)
[2019-03-22 05:03] LABS: Magnesium 1.8 mg/dL (1.8-2.4); Potassium 4.1 mmol/L (3.5-5.1)
[2019-03-22] MEDS: INSULIN -REGULAR HUMAN 50 UNIT/0.5 ML ML SQ SCH ×3 (07:30→16:22)
[2019-03-22 09:19] VITALS: BP 140/70; TEMP 100
[2019-03-22] MEDS: CALCITROL 0.25 MCG CAP PO SCH (09:41)
[2019-03-22] MEDS: DOCUSATE NA 100 MG CAP PO SCH (09:41)
[2019-03-22] MEDS: INSULIN GLARGINE 100 UNITS/ML SQ SCH (16:22)
--- NOTE | 2019-03-22 16:23 | PN ---
Subjective: Patient is doing well. Patient is scheduled for dialysis today. Patient has chair time . Physical Examination: Vital Signs: Blood pressure 140/70, pulse of 82. Chest: Clear to auscultation. Heart: S1 and S2 regular. Abdomen: Soft, nontender. Extremities: No edema. Laboratory Data: H and H of 8.3/25.9. Sodium 141, potassium 4.1, bicarb 24, BUN 37, creatinine 4.6, calcium 7.5, phosphorus 4, magnesium 1.8. Current Medications: The patient on include Tylenol, hydralazine 25 q.6 p.r.n., metoclopramide, insu ana. Assessment And Plan: 1.End-stage renal disease. We will continue the patient on dialysis TTS. We will monitor the patie nt. 2.Anemia of chronic kidney disease, stable. Continue LINWOOD. 3.Hypertension with occasional low blood pressure, especially on dialysis. We will hold the blood p ressure medication before dialysis. We will keep just p.r.n. medication. 4.Secondary hyperparathyroidism. Continue calcitriol. 5.Diabetes as by primary. CASSIE/KERI Voice ID: [id number] Report ID: [id number]
--- NOTE | 2019-03-23 05:39 | DS ---
Date of Discharge: 03/22/2019 Consultants: Maria Garcia MD; Dr. Valdez; Nael Beckman M.D. with Nephrology; Tristan Nunes MD with General Surgery. Procedures: On 03/16/[address] Nunes, placement of tunneled hemodialysis catheter. Admitting Diagnoses: 1.Diabetes mellitus type 2 with uncontrolled hyperglycemia. 2.Syncopal episode. 3.Acute on chronic kidney injury. 4.Hypermagnesemia. 5.Leukocytosis with neutrophilia. 6.History of cerebrovascular accident. 7.Diabetic retinopathy. 8.Mixed hyperlipidemia. 9.Essential hypertension. 10.Depression with anxiety. 11.History of thyroid cancer. 12.Nicotine dependence with cigarette smoking. 13.Gastroesophageal reflux disease without. Discharge Diagnoses: 1.Acute on chronic kidney injury, now on dialysis with stage 4-5, now on dialysis. 2.Syncopal episode, likely related to dehydration. 3.Acute dehydration, resolved. 4.Diabetes mellitus type 2 with uncontrolled hyperglycemia, not in DKA. 5.Hypomagnesemia, corrected. 6.Acute cystitis without hematuria, cultures negative. 7.History of cerebrovascular accident. 8.Diabetic retinopathy with legal blindness. 9.Mixed hyperlipidemia. 10.Essential hypertension. 11.Depression with anxiety. 12.History of thyroid cancer. 13.Nicotine dependence. Cigarette smoking counseled. 14.Gastroesophageal reflux disease without esophagitis. 15.Constipation. We will continue with stool softeners. 16.Noncompliance, intentional. 17.Diabetic gastroparesis. Patient is to follow up with GI as outpatient. Hospital Course: The patient is a noncompliant 43-year-old female with multiple chronic medical cond itions including uncontrolled diabetes, diabetic retinopathy, history of CVA, chronic kidney disease, stage IV progressing to end-stage history of thyroid cancer, hyperlipidemia, GERD, comes in with kandis vated blood sugar levels, nausea, vomiting, not eating. Patient had a near syncopal episode, which w as likely related to her dehydration. Patient was found to have worsening kidney function. Her bloo d glucose level was 571. She did not have any ketones. There was no DKA. Anion gap was not elevate d. Patient was started on IV fluids. Nephrology was consulted. Patient had to be initialized on richy bobo, Dr. Nunes with General Surgery, placed a tunneled hemodialysis catheter. Patient's symptom s improved. Her electrolytes were corrected. She will set up with a chair time for dialysis as well . Her white blood cell count normalized. She was initially thought to have UTI as her UA showed graham teria and WBCs. However, the urine culture was negative therefore, antibiotics were stopped. Her bl ood cultures also came back negative. Leukocytosis may be from acute phase reactant. Patient was no t septic, lactate level was normal. Patient was afebrile. Overall patient did well. Once chair lena e was established, she was then discharged home in a stable condition. Activity: As tolerated. Fall precautions. Followup: Follow up with primary care physician in 2-3 days. Follow up with push bench operator helper, Dr. Porter sams, in 2 weeks. Return to ER for worsening condition. Diet: Renal. Medications: As per medication reconciliation list. Physical Examination: General: Awake, alert, oriented, and in no acute distress. CV: S1-S2. Respiratory: Moving air well bilaterally. Abdomen: Soft, nontender, nondistended. Positive bowel sounds. Extremities: No clubbing, cyanosis, or edema. Neurologic: Nonfocal. Total time spent discharging patient was 42 minutes. /KERI Voice ID: [id number] Report ID: [id number]
== END 2019-03-22 16:51 | disposition home or self-care (01) | DRG 674 ==
LOC: ER 10:23 → ERHOLD 11:41 → 4TH 14:21
PROVIDERS: ADMIT Family Medicine; ATTEND Family Medicine
PROC: 0JH63XZ Insertion of Tunneled Vascular Access Device into Chest Subcutaneous Tissue and Fascia, Percutaneous Approach (ICD-10-PCS; 2019-03-16)
PROC: 02HV33Z Insertion of Infusion Device into Superior Vena Cava, Percutaneous Approach (ICD-10-PCS; 2019-03-16)
PROC: B548ZZA Ultrasonography of Superior Vena Cava, Guidance (ICD-10-PCS; 2019-03-16)
PROC: 5A1D70Z Performance of Urinary Filtration, Intermittent, Less than 6 Hours Per Day (ICD-10-PCS; principal; 2019-03-16 09:30)
DX: N17.0 Acute kidney failure with tubular necrosis (principal); E87.2 Acidosis; N30.00 Acute cystitis without hematuria; I12.0 Hypertensive chronic kidney disease with stage 5 chronic kidney disease or end stage renal disease; N18.6 End stage renal disease; E11.65 Type 2 diabetes mellitus with hyperglycemia; E11.319 Type 2 diabetes mellitus with unspecified diabetic retinopathy without macular edema; E86.0 Dehydration; Z91.19 Patient's noncompliance with other medical treatment and regimen; E11.22 Type 2 diabetes mellitus with diabetic chronic kidney disease; N18.3 Chronic kidney disease, stage 3 (moderate); E83.41 Hypermagnesemia; E78.2 Mixed hyperlipidemia; F41.8 Other specified anxiety disorders; F17.210 Nicotine dependence, cigarettes, uncomplicated; K21.9 Gastro-esophageal reflux disease without esophagitis; E11.43 Type 2 diabetes mellitus with diabetic autonomic (poly)neuropathy; K31.84 Gastroparesis; D63.1 Anemia in chronic kidney disease; E87.6 Hypokalemia; K56.41 Fecal impaction; N25.0 Renal osteodystrophy; E89.0 Postprocedural hypothyroidism; H54.8 Legal blindness, as defined in USA; Z86.73 Personal history of transient ischemic attack (TIA), and cerebral infarction without residual deficits; Z85.850 Personal history of malignant neoplasm of thyroid
CPT/HCPCS: 36415; 51702; 70360; 71045; 74176; 76000; 76377; 80048; 80053; 80069; 80076; 81003; 81015; 81025; 82010; 82805; 82962; 83605; 83690; 83735; 83880; 83970; 84100; 84484; 85025; 85610; 86317; 86704; 86706; 87040; 87086; 87088; 87340; 87522; 90935; 93005; 94760; 96365; 96366; 96372; 96375; 99285; C1752; J0696; J1644; J2250; J2270; J2405; J2704; J2765; J3010; J7030

== ENCOUNTER 2019-04-11 14:29 | Inpatient (IN) | payer OTHER ==
--- OUTSIDE RECORDS SUMMARY | 2019-04-11 15:01 | XMS REPORT | Clinical Summary ---
:1975 Author Organization [facility] Address [address] [place] [address] Care Team Providers Name Role Phone Unavailable [...] every injection morning Use as directed . Active Problems Problem Noted Date Proteinuria 03/20/2017 [...] Not on file Results Not on fileafter 04/10/2018 Insurance Payer Benefit Plan / Group Subscriber ID Type Phone Address [employer] - MEDICARE [employer] HMO xxxxxxxxx [facility] Advance Directives For more information, please contact:[address] [phone] Code Status Date Activated Date Inactivated Comments Full Code 03/14/2017 8:30 PM 03/20/2017 12:11 PM This code status was determined by: Patient
--- OUTSIDE RECORDS SUMMARY | 2019-04-11 15:02 | XMS REPORT | Continuity of Care Document ---
:1975 Author Organization [employer] Care Team Providers Name Role Phone [employer] Unavailable Unavailable Problems Problem Status Onset Classification Date Comments Source Date Reported Unspecified chronic 01/12/2019 [place] gastritis without 018 bleeding EGD Active [facility] 018 [place] K31.84, R11.2, Active [facility] K21.0 018 [place] GASTRIC EMPTYING Active [facility] 018 [place] UNK Active [facility] 018 [place] Nephrotic syndrome Active Finding 09/04/[address] [...] [facility] [place] Type 2 diabetes 01/12/2019 [facility] mellitus without complications Gastroparesis 12/12/2018 [facility] Gastro-esophageal 01/12/2019 [facility] reflux disease without esophagitis Nausea with 01/12/2019 [facility] vomiting, unspecified Functional 12/12/2018 [facility] dyspepsia Anxiety [facility] with acute Resolved Problem 01/12/2019 bronchitis(Confirme Calista d) [facility] Depression Resolved Problem [facility] Diabetes Resolved Problem [facility] ESRD (Confirmed) Resolved Problem [facility] H/O: stroke Resolved Problem [facility]/12[facility]2019 [facility]O thyroidectomy Resolved Problem [facility] Neuropathy Resolved Problem [facility] Personal history of 01/12/2019 [facility] nicotine dependence [facility] use of 01/12/2019 [facility] insulin Personal history of 01/12/2019 [facility] transient ischemic attack , and cerebral infarction without residual deficits Major depressive 01/12/2019 [facility] disorder, single episode, unspecified Chest pain Inactive [...] Weight 72.727, kg, Start date: 06/25/18 18:00:00 [employer], Duration: 30 day, Stop date: 07/25/18 12:00:00 CSTNotes: (Same as: Lopressor) Push over 2 minutes Metoprolol 5 mg, 5 Inactive [place] mL, Route: 2018 IVP, Drug form: INJ, PRN, Dosing Weight 72.727, kg, PRN Hypertensi on, Start date: 06/25/18 12:34:00 HOSPICE CLINICAL MARKETER, Duration: 30 day, Stop date: 07/25/18 12:33:00 CSTNotes: (Same as: Lopressor) Push over 2 minutes Hydromorphone 0.5 mg, Inactive [place] 0.5 mL, 2018 Route: IVP, Drug form: INJ, PRN, Dosing Weight 72.727, kg, PRN Pain Score 1-5, Priority: STAT, Start date: 06/25/18 11:48:00 HOSPICE [employer]INICAL MARKETER, Duration: 2 doses or times, Stop date: Limited # of timesNotes : Same as: Dilaudid Morphine 2 mg, Inactive [place] Route: 2018 IVP, ONCE, Dosing Weight 72.727, kg, Start date: 06/25/18 11:21:00 HOSPICE [employer]INICAL MARKETER, Stop date: 06/25/18 11:21:00 HOSPICE [employer] MARKETER lisinopril 10 mg 10 mg=1 Active [place] oral tablet tab, PO, 2018 Daily, # 90 tab, 1 Refill(s) Sodium Chloride 1,000 mL, Inactive [place] 0.9% IV 1,000 mL Rate: 25 2018 ml/hr, Infuse over: 40 hr, Route: IV, Dosing Weight 72.727 kg, Total Volume: 1,000, Start date: 06/25/18 9:36:00 HOSPICE [employer]INICAL MARKETER, Duration: 30 day, Stop date: 07/25/18 9:35:00 HOSPICE CLINICAL MARKETER, 1.83, m2 Unknown Home Refill(s) Active [place] Medication 0 2018 3 ML Insulin 15 unit, Active [place] Glargine 300 SUB-Q, BID 2018 UNT/ML Pen Injector [Toujeo] Amlodipine DAILY Active [facility] [place] Hydrocodone THREE Active [facility] Bit/Acetaminophe TIMES A 2018 [facility] - n DAY PRN [place] For Pain Levofloxacin DAILY Active [facility] 2017 [facility] [place] Tramadol Hcl TWICE Active [facility] 08/07/ [facility] DAILY PRN 2017 [facility] For Pain [place] Lisinopril DAILY Active [facility] 08/06/ [facility] [place] Atorvastatin AT BEDTIME Active [facility] 08/06/ [facility] Calcium 2017 [facility] [place] Ciprofloxacin TWICE Active [facility] 08/06/ [facility] Hcl DAILY 2017 [facility] [place] Neomycin/Polymyx TWICE AURICULAR Active [facility] 08/06/ [facility] in B Sulf/Hc [...] - / Vomiting [place] Metoclopramide Q6H Active [facility] 10/09/ [facility]cl 2016 [facility] [place] Hydrocodone WITH MEALS Active St[facility] Bit/Acetaminophe NEEDED 2015 [facility] - n PRN For [place] Pain Lisinopril/[place] TWICE Active St[facility] chlorothiazide DAILY 2012 [facility] [place] Meloxicam DAILY Active St[facility] 2013 [facility] [place] Metoclopramide BEFORE Active St. MEALS AND 2012 [facility] AT BEDTIME [place] Allergies, Adverse Reactions, Alerts Substance Category Reaction Severity Reaction Status Date Comments Source type Reported No Known NONE Allergy to Active [facility] Drug Substance 8 [facility] Allergies [place] No Known Assertion Drug [facility] Medication allergy Allergies Immunizations Immunization Date Given Site Status Last Comments Source Updated Influenza Adult 07/23/[address] [facility] - [place] Results Order Name Results Value Reference Date Interpretation Comments Source Range CHEM PANEL eGFR 21 06/22 [facility] Comment: The [place] eGFR is calculated using the CKD-EPI formula. [...] PANEL CO2 24 24 - 32 06/22 [place] CHEM PANEL AGAP 13.7 10.0 - 06/22 [facility] 20.0 [place] CHEM PANEL Calcium Lvl 7.7 8.5 - 10.5 06/22 [place] CHEM PANEL BUN 26 7 - 22 06/22 [place] CHEM PANEL Creatinine 2.68 0.50 - 06/22 Lvl 1.40 [place] CHEM PANEL Potassium 3.7 3.5 - 5.1 06/22 MH Lvl /2017 [place] CHEM PANEL Chloride Lvl 107 95 - 109 06/22 [place] CHEM PANEL Sodium Lvl 141 135 - 145 06/22 [place] CHEM PANEL Glucose Lvl 428 70 - 99 06/22 Result Comment: [place] Critical Result(s) called to Betty [facility] at _06/22/2018 15:37 by_cg. Read back OK. ENDOCRINOL S Preg Negative Negative 06/22 OGY *NA* /2017 [place] (06/22/18 2:55 PM) URINE CHEM U Preg Negative Negative 05/24 (05/24/18 10:11 AM) /2017 [place] Laboratory Urine Random 545 09/[address] [facility] [address] Studies Total /2017 [facility] Protein [place] Laboratory Urine 8.35 09/[address] [facility] [address] Studies Protein/Crea /2017 [facility] tinine Ratio [place] [facility] Urine 65.3 09/[address] [facility] [address] Studies Creatinine /2017 [facility] [place] [facility] Total 0.6 0.3 - 1.2 09/[address] [facility] [address] Studies Bilirubin /2017 [facility] [place] [facility] Sodium Level 140 135 - 145 09/[address] [facility] [address] Studies /2017 [facility] [place] [facility] Serum Total 3.7 6.0 - 8.3 09/[address] [facility] [address] Studies Protein /2017 [facility] [place] [facility] Potassium 3.6 3.6 - 5.0 09/[address] [facility] [address] Studies Level /2017 [facility] [place] Laboratory Phosphorus 3.2 2.5 - 4.3 09/[address] [facility] [address] Studies Level /2017 [facility] [place] Laboratory Glucose 104 65 - 120 09/[address] [facility] [address] Studies Level /2018 [facility] [place] Laboratory Globulin 2.6 2.3 - 3.5 09/[address] [facility] [address] Studies /2018 [facility] [place] Laboratory Estimat 33 90 09/[address] [facility] [address] Studies Glomerular /2017 [facility] Filtration [place] Rate Laboratory Creatinine 1.72 0.44 - 09/[address] [facility] [address] Studies 1.00 [facility] [place] [facility] Chloride 117 101 - 111 09/[address] [facility] [address] Studies Level /2018 [facility] [place] Laboratory Carbon 19 21 - 31 09/[address] [facility] [address] Studies Dioxide /2017 [facility] Level [place] Laboratory Calcium 7.3 8.5 - 10.5 09/04 [facility]. Studies Level /2017 [facility] [place] Laboratory Blood Urea 13 6 - 20 09/04 [facility]. Studies Nitrogen /2017 [facility] [place] Laboratory Aspartate 16 10 - 42 09/04 [facility]. Studies Amino Transf /2017 [facility] (AST/SGOT) [place] Laboratory Alkaline 73 42 - 121 09/04 [facility]. Studies Phosphatase /2017 [facility] [place] Laboratory Albumin/Glob 0.4 1.1 - 1.8 09/04 [facility]. Studies ulin Ratio /2017 [facility] [place] Laboratory Albumin 1.1 3.2 - 5.5 09/[address] [facility] [address] Studies /2017 [facility] [place] Laboratory Alanine 12 10 - 60 09/04 [facility]. Studies Aminotransfe /2017 [facility] rase [place] (ALT/SGPT) Laboratory Parathyroid 64 12 - 88 09/03 [facility]. Studies Hormone /2017 [facility] (Intact) [place] Laboratory Hemoglobin 8.6 4 - 6.0 09/03 [facility]. Studies A1c /2017 [facility] [place] Laboratory Thyroid 0.75 0.34 - 09/03 [facility]. Studies Stimulating 5.60 /2017 [facility] Hormone [place] (TSH) Laboratory White Blood 9.3 4.3 - 10.9 09/03 [facility]. Studies Count /2017 [facility] [place] Laboratory Red Cell 13.7 12.1 - 09/03 [facility] Studies Distribution 15.2 /2017 [facility] Width [place] Laboratory Red Blood 4.16 3.86 - 09/03 [facility]. Studies Count 4.86 /2017 [facility] [place] Laboratory Platelet 233 152 - 406 09/03 [facility]. Studies Count /2017 [facility] [place] Laboratory Neutrophils 71.9 41.7 - 09/03 [facility]. Studies % 73.7 /2017 [facility] [place] Laboratory Monocytes % 9.6 3.3 - 12.3 09/03 [facility]. Studies /2017 [facility] [place] Laboratory Mean 9.7 7.6 - 11.3 09/03 [facility]. Studies Platelet /2017 [facility] Volume [place] Laboratory Mean 90.1 80 - 100 09/03 [facility]. Studies Corpuscular /2017 [facility] Volume [place] Laboratory Mean 33.3 32.0 - 09/[address] [facility] [address] Studies Corpuscular 36.0 /2017 [facility] Hemoglobin [place] Concent Laboratory Mean 30.0 27.0 - 09/[address] [facility] [address] Studies Corpuscular 35.0 /2017 [facility] Hemoglobin [place] Laboratory Lymphocytes 16.6 15.3 - 09/[address] [facility] [address] Studies % 44.8 /2017 [facility] [place] Laboratory Hemoglobin 12.5 12.0 - 09/[address] [facility] [address] Studies 15.0 /2017 [facility] [place] Laboratory Hematocrit 37.5 36.0 - 09/[address] [facility] [address] Studies 45.0 /2017 [facility] [place] Laboratory Eosinophils 1.4 0 - 4.4 09/[address] [facility] [address] Studies % /2017 [facility] [place] Laboratory Basophils % 0.5 0 - 1.3 09/[address] [facility] [address] Studies /2017 [facility] [place] Laboratory Absolute 6.7 1.8 - 8.0 09/[address] [facility] [address] Studies Neutrophil /2017 [facility] [place] Laboratory Absolute 0.9 0.1 - 1.3 09/[address] [facility] [address] Studies Monocytes /2017 [facility] (CBC) [place] Laboratory Absolute 1.6 0.7 - 4.9 09/[address] [facility] [address] Studies Lymphocytes /2017 [facility] (CBC) [place] Laboratory Absolute 0.1 0 - 0.5 09/[address] [facility] [address] Studies Eosinophils /2017 [facility] (CBC) [place] Laboratory Absolute 0.0 0 - 0.5 09/[address] [facility] [address] Studies Basophils [facility] - (CBC) [place] Laboratory Urine 1.020 09/[address] [facility] [address] Studies Specific /2017 [facility] [place] Laboratory Urine Urine 09/02 [facility] Studies /2017 [facility] - Test Test [place] Laboratory Urine pH 6.0 09/[address] [facility] [address] Studies /2017 [facility] [place] Laboratory Urine Total Urine 09/[address] [facility] [address] Studies Protein Total /2017 [facility] Protein [place] Laboratory Urine Urine 09/02 [facility] Studies Nitrite Nitrite /2017 [facility] [place] [facility] Urine Urine 09/[address] [facility] Studies Leukocyte Leukocyte /2017 [facility] Esterase Esterase [place] Laboratory Urine Urine 09/[address] [facility] [address] Studies Ketones Ketones /2017 [facility] [place] [facility] Urine Urine 09/02 [facility]. Studies Glucose Glucose /2017 [facility] Urine Blood Urine 09/02 [facility]. Studies Blood /2017 [facility] Procalcitoni 0.77 09/[address] [facility] [address] Studies n /2017 [facility] [place] Laboratory Segmented 81 40 - 80 09/01 . Studies Neutrophils /2017 [facility] [place] [facility] Reactive 2 09/01 . Studies Lymphocytes /2017 [facility] [place] Laboratory Monocytes 6 0 - 10 09/01 St[facility] Studies /2017 [facility] [place] Laboratory Lymphocytes 8 15 - 42 09/01 St[facility] Studies /2017 [facility] [place] Laboratory Blood Blood 09/01 [facility] Studies Morphology Morphology /2017 [facility] - Comment Comment [facility] Band 3 0 - 1 09/01 [facility]. Studies Neutrophils /2017 [facility] [place] [facility] Direct 0.2 0 - 0.2 09/01 [facility]. Studies Bilirubin /2017 [facility] [place] Laboratory Lipase 12 22 - 51 09/[address] [facility] [address] Studies /2017 [facility] [place] Laboratory Triglyceride 154 35 - 160 08/06 [facility]. Studies s Level /2016 [facility] [place] [facility] LDL 173 08/06 [facility]. Studies Cholesterol, /2016 [facility] Calculated [facility] HDL 41 29 - 89 08/06 [facility]. Studies Cholesterol /2016 [facility] [place] Laboratory Cholesterol/ 5.98 08/06 [facility]. Studies HDL Ratio /2016 [facility] Cholesterol 245 08/06 [facility]. Studies Level /2016 [facility] [place] Laboratory Creatine 0.6 0.3 - 4.0 08/05 [facility]. Studies Kinase MB /2016 [facility] Creatine 29 22 - 269 08/05 [facility]. Studies Kinase /2016 [facility] [place] Laboratory Troponin I <0.03 08/05 [facility]. Studies /2016 [facility] B-Type 137 08/05 [facility]. Studies Natriuretic /2016 [facility] - Peptide [facility] Magnesium 1.7 1.8 - 2.5 08/05 [facility]. Studies Level /2016 [facility] [place] Laboratory Rapid <0.03 08/05 [facility]. Studies Troponin I /2016 [facility] Prothrombin 10.4 9.5 - 12.5 08/[address] Studies Time [facility] [place] Laboratory INR 0.88 08/[address] Studies Internationa [facility] - l Normalized [place] Ratio Laboratory Activated 29.4 24.3 - 08/[address] [facility] [address] Studies Partial 36. [facility] - Thromboplast [place] Time Pathology Reports No Data Provided for This Section Diagnostic Reports Report Value Date Source Stomach emptying NM Patient Name: GIGI CONROY 05/24/2018 [facility] : 1975; Age: 42 years Female MR: [id number] Study: Stomach emptying NM 05/24/2018 10:11 AM [...] gastric emptying suggestive of mild gastroparesis. SL: [id number] Consultation Notes No Data Provided for This Section Discharge Summaries No Data Provided for This Section History and Physicals No Data Provided for This Section Vital Signs Vital Sign Value Date Comments Source Systolic (mm Hg) 145 06/25/2018 [facility] Diastolic (mm Hg) 75 06/25/2018 [facility] Respitory Rate 10 06/25/2018 [facility] Respitory Rate 14 06/25/2018 [facility] Systolic (mm Hg) 163 06/25/2018 [facility] Diastolic (mm Hg) 71 06/25/2018 [facility] Systolic (mm Hg) 179 06/25/2018 [facility] Diastolic (mm Hg) 92 06/25/2018 [facility] Respitory Rate 12 06/25/2018 [facility] Temperature Oral (F) 98.1 F 06/22/2018 [facility] Heart Rate 87 06/22/2018 [facility] BMI Calculated 27.52 06/22/2018 [facility] Weight 72.727 06/22/2018 [facility] Height 162.56 cm 06/22/2018 [facility] Height 157.48 cm 05/13/2018 [facility] BMI Calculated 29.33 05/13/2018 [facility] Weight 72.727 05/13/2018 [facility] Heart Rate 65 09/04/[address] [facility] [...] Provider Date Date Visit [facility] [id number] 08/06 08/[address] [facility] [place] [facility] [id number] 09/01 09/[address] [facility] [place] [facility] [id number] [facility] P[facility] 05/13 05/13 [facility] 0 [facility] PreReg [id number] [facility] 05/18 05/24 [place] 1 Juan [facility] Outpatient [id number] [facility] [place] 05/24 05/25 [place] 2 Juan [facility] Bedded [id number] Sri P[facility] 06/25 06/25 [place] [facility] 3 Juan [facility] Procedures Procedure Code Date Perfomer Comments Source Occult Blood 09/04/[address] [facility] - [place] Thorax Wo Con [id number] 09/02/[address] [facility] 18 - [place] Anaerobic Blood [id number] 09/01/19 [facility] Culture 18 - [place] Aerobic Blood [id number] 09/01/[address] [facility] [facility] Culture 18 - [place] Chest Single View [id number] 09/01/[address] [facility] [place] Influenza Type B 09/01/19 [facility] Antigen Screen 18 - [place] Influenza Type A 09/01/19 [facility] Antigen Screen 18 - [place] PLAIN RADIOGRAPHY OF [id number] 08/06/20 [facility] MULT COR ART USING 17 - [place] OTH CONTRAST Caesarean section [id number] [facility] Cholecystectomy [id number] [facility] Laser surgery [id number] [facility] Repair of ingrown [id number] [facility], toenail [facility] Thyroidectomy [id number] [facility] Tonsillectomy [id number] [facility] Assessment and Plan No Data Provided for This Section Plan of Care Plan of Care Date Source Instructions 09/04/[address] [facility] [place] Pneumonia-Adult Instructions 09/04/[address] [facility] [address] [facility] - [place] Pneumonia-Adult Social History Social History Date Source Social History TypeResponse 06/25/2018 [facility] Substance Abuse Use: Current. Type: Marijuana. IV drug use: No. Alcohol Past, Alcohol use interferes with work or home: No. Smoking Status Current every day smoker; Previous treatment: None; Exposure to Tobacco Smoke None; Cigarette Smoking Last 365 Days No; Reg Smoking Cessation Counseling No entered on: 06/25/18 Social History TypeResponse 06/25/2018 [facility] Substance Abuse Use: Current. Type: Marijuana. IV drug use: No. Alcohol Past, Alcohol use interferes with work or home: No. Smoking Status Current every day smoker; Previous treatment: None; Exposure to Tobacco Smoke None; Cigarette Smoking Last 365 Days No; Reg Smoking Cessation Counseling No entered on: 06/25/18 Query Response Date Recorded Comment 10/15/[address] [facility] [facility] [place] Alcohol Use? No September 02, 2017 7:22am CD- Drugs? No September 02, 2017 7:22am Query Response Start Date Stop Date Smoking Status Never smoker October 15, 1984 Family History Value Date Source Query Response Instance Date Recorded Comment 09/04/2017 [facility] - [place] Nurses notes thyroid problems parents both disease [...] Advance Directive Response Recorded Date/Time 09/04/2017 [facility] - Does Patient Have Living Will Rayosporrobin No September 03, 2017 6:00pm Durable Power of Sports Statistician for 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
--- OUTSIDE RECORDS SUMMARY | 2019-04-11 15:03 | XMS REPORT ---
:1975 [facility] Address [address] [place] [address] Dr. Soto [address] [place] [address] Care Team Providers Name Role Phone ARON [...] Range Comments FACTOR V LEIDEN (BEAKER) (test rsay=283) Negative for the R506Q (Factor V Leiden) mutation [id number] (BEAKER) (test Martínez Wang MD (electronic signature) ghys=9114) This test is a genotyping assay which [...] [facility] developed [facility] Section of [facility] Pathology. It has not been cleared or approved by the U.S. Food and Drug Administration (FDA), since FDA approval is not required for clinical use of the test. Validation was done as required by the Clinical Laboratory Improvement Amendments of 1988.POCT-GLUCOSE [id number] 07:28:00 Test Item Value Reference Range Comments POC-GLUCOSE METER (BEAKER) 200 mg/dL 70-110 TESTED AT [facility] [address] (test ykxh=8945) [facility] [address] POCT-GLUCOSE [id number] 21:18:00 Test Item Value Reference Range Comments POC-GLUCOSE METER (BEAKER) 211 mg/dL 70-110 TESTED AT [facility] [address] [place] [address] (test ytyo=4648) [facility] [address] PROTEIN, RANDOM [id number] 19:43:00 Test Item Value Reference Range Comments PROTEIN, URINE (BEAKER) (test igcj=2549) 286 mg/dL 0-14 CREATININE, RANDOM [id number] 18:27:00 Test Item Value Reference Range Comments CREATININE URINE (BEAKER) (test flay=809) 29.3 mg/dL Reference Range: No NormalsDILUTE SHIRA VIPER VENOM (DRVV)2017-03-19 12:47:00 Test Item Value Reference Range Comments PROTIME (BEAKER) (test 11.3 seconds 11.7-14.7 sels=973) INR (BEAKER) (test tihc=182) 0.8 <=5.9 PARTIAL THROMBOPLASTIN TIME 28.0 seconds 22.5-36.0 (BEAKER) (test fyrl=960) DRVV INTERPRETATION (BEAKER) Normal DRVV Results (test zlok=6070) DRVV INTERPRETATION (BEAKER) Normal Hexagonal Phospholipid (test oujj=126103) [id number] (BEAKER) Martínez Wang MD (electronic (test egha=7695) signature) DRVV SCREEN RATIO (BEAKER) 0.84 <1.20 (test gtfn=7388) Effective 12/20/2013: Test Method ChangeDRVV Screen Ratio, DRVV 1/1 Screen Ratio, DRVV Confirm Ratio,DRVV Normalized Ratio Reference Range: <1.2Protime Reference Range ChangeNew: 11.7-14.7 Previous: 9.8-12.0PTT Reference Range ChangeNew: 22.5-36.0 Previous: 25.8-34.5URINE [id number] 11:40:00 Test Item Value Reference Range Comments CULTURE (BEAKER) (test 20-29,000 col/mL skin lei nzcn=2697) POCT-GLUCOSE [id number] 08:33:00 Test Item Value Reference Range Comments POC-GLUCOSE METER (BEAKER) 293 mg/dL 70-110 TESTED AT [address] (test anpt=9401) [facility] [address] VITAMIN D, [id number] 07:49:00 Test Item Value Reference Range Comments VITAMIN D 25-OH (BEAKER) (test kvdy=8828) < ng/mL 13.0-47.8 CBC W/PLT COUNT & AUTO [id number] 05:59:00 Test Item Value Reference Range Comments WHITE BLOOD CELL COUNT (BEAKER) (test mucp=992) 9.4 K/ L 3.5-10.5 RED BLOOD CELL COUNT (BEAKER) (test nobl=416) 4.16 M/ L 3.93-5.22 HEMOGLOBIN (BEAKER) (test clwm=469) 12.7 GM/DL 11.2-15.7 HEMATOCRIT (BEAKER) (test fegm=918) 38.0 % 34.1-44.9 MEAN CORPUSCULAR VOLUME (BEAKER) (test qlbo=409) 91.3 fL 79.4-94.8 MEAN CORPUSCULAR HEMOGLOBIN (BEAKER) (test 30.5 pg 25.6-32.2 kqff=202) MEAN CORPUSCULAR HEMOGLOBIN CONC (BEAKER) (test 33.4 GM/DL 32.2-35.5 ydfz=830) RED CELL DISTRIBUTION WIDTH (BEAKER) (test 12.6 % 11.7-14.4 vele=365) PLATELET COUNT (BEAKER) (test qhaf=256) 329 K/CU MM 150-450 MEAN PLATELET VOLUME (BEAKER) (test enkv=212) 10.0 fL 9.4-12.3 NUCLEATED RED BLOOD CELLS (BEAKER) (test 0 /100 WBC 0-0 ybvf=004) NEUTROPHILS RELATIVE PERCENT (BEAKER) (test 68 % ljkh=656) LYMPHOCYTES RELATIVE PERCENT (BEAKER) (test 23 % uyiq=284) MONOCYTES RELATIVE PERCENT (BEAKER) (test 7 % uzow=308) EOSINOPHILS RELATIVE PERCENT (BEAKER) (test 1 % hgku=323) BASOPHILS RELATIVE PERCENT (BEAKER) (test 1 % wjjc=001) NEUTROPHILS ABSOLUTE COUNT (BEAKER) (test 6.35 K/ L 1.56-6.13 pxvt=636) LYMPHOCYTES ABSOLUTE COUNT (BEAKER) (test 2.16 K/ L 1.18-3.74 mpay=470) MONOCYTES ABSOLUTE COUNT (BEAKER) (test 0.68 K/ L 0.24-0.36 orxz=259) EOSINOPHILS ABSOLUTE COUNT (BEAKER) (test 0.10 K/ L 0.04-0.36 jopp=645) BASOPHILS ABSOLUTE COUNT (BEAKER) (test 0.06 K/ L 0.01-0.08 ikvj=630) IMMATURE GRANULOCYTES-RELATIVE PERCENT (BEAKER) 0 % 0-1 (test vncu=8935) BASIC METABOLIC [id number] 05:38:00 Test Item Value Reference Range Comments SODIUM (BEAKER) (test 135 meq/L 136-145 bhss=432) POTASSIUM (BEAKER) (test 4.1 meq/L 3.5-5.1 nfiu=707) CHLORIDE (BEAKER) (test 102 meq/L 98-107 axsz=137) CO2 (BEAKER) (test 25 meq/L 22-29 erlt=304) BLOOD UREA NITROGEN 12 mg/dL 7-21 (BEAKER) (test ygwj=937) CREATININE (BEAKER) (test 1.99 mg/dL 0.57-1.25 bzfx=078) GLUCOSE RANDOM (BEAKER) 290 mg/dL 70-105 (test uxtd=061) CALCIUM (BEAKER) (test 8.7 mg/dL 8.4-10.2 fypd=335) EGFR (BEAKER) (test 27 mL/min/1.73 sq m ESTIMATED GFR IS NOT hgdc=6959) ACCURATE CREATININE CLEARANCE IN PREDICTING GLOMERULAR FILTRATION RATE. ESTIMATED GFR IS NOT APPLICABLE FOR DIALYSIS PATIENTS. [id number] 05:37:00 Test Item Value Reference Range Comments PHOSPHORUS (BEAKER) (test lepl=547) 4.1 mg/dL 2.3-4.7 [id number] 05:37:00 Test Item Value Reference Range Comments MAGNESIUM (BEAKER) (test vatt=079) 1.7 mg/dL 1.6-2.6 PTH, [id number] 05:34:00 Test Item Value Reference Range Comments PARATHYROID HORMONE INTACT (BEAKER) (test 57.2 pg/mL 8.5-72.5 zeby=853) Effective 07/04/2014: Reference Range ChangeNew: 8.5-72.5 Previous: 15.0- 90.0CARDIOLIPIN ANTIBODIES, IGG AND [id number] 22:36:00 Test Item Value Reference Range Comments ANTICARDIOLIPIN IGG ANTIBODY (BEAKER) (test < GPL ckqw=839) ANTICARDIOLIPIN IGM ANTIBODY (BEAKER) (test 2.8 MPL kinj=562) Anticardiolipin IgG Result Interpretation:NEG: <20 GPL; U/mlPOS: >/=20 GPL; U/mlAnticardiolipin IgM Result Interpretation:NEG: <20 MPL; U/mlPOS: >/=20 MPL; U/mlPOCT-GLUCOSE [id number] 21:25:00 Test Item Value Reference Range Comments POC-GLUCOSE METER (BEAKER) 198 mg/dL 70-110 TESTED AT [address] (test rana=8544) [place] [address] POCT-GLUCOSE [id number] 16:29:00 Test Item Value Reference Range Comments POC-GLUCOSE METER (BEAKER) 296 mg/dL 70-110 TESTED AT [address] (test ktal=4800) [place] [address] ANTI-NUCLEAR ANTIBODY (MARY)2017-03-18 15:30:00 Test Item Value Reference Range Comments ANTI-NUCLEAR ANTIBODY (MARY) (BEAKER) (test Negative Negative obxw=009) HEXAGONAL [id number] 13:21:00 Test Item Value Reference Range Comments HEXAGONAL PHOSPHOLIPID (BEAKER) (test fxjx=3140) Negative POCT-GLUCOSE [id number] 12:15:00 Test Item Value Reference Range Comments POC-GLUCOSE METER (BEAKER) 140 mg/dL 70-110 TESTED AT [address] (test npbq=0303) [place] [id number] PROTEIN C [id number] 11:44:00 Test Item Value Reference Range Comments PROTEIN C ACTIVITY (BEAKER) (test eogu=815) 155.0 % 70.0-130.0 Effective 12/20/2013: Reference Range Change-Adult onlyNew: 70.0-130.0 Previous : 70.0-140.0See Protein C Antigen.ANTITHROMBIN [id number] 11:43:00 Test Item Value Reference Range Comments ANTITHROMBIN III ACTIVITY (BEAKER) (test yfhl=493) 87.0 % 80.0-120.0 Effective 12/20/2013: Reference Range Change-Adult onlyNew: 80.0-120.0 Previous : 90.0-128.0POCT-GLUCOSE [id number] 08:17:00 Test Item Value Reference Range Comments POC-GLUCOSE METER (BEAKER) 107 mg/dL 70-110 TESTED AT [facility] [address] (test alcb=2536) [facility] [address] BASIC METABOLIC [id number] 06:32:00 Test Item Value Reference Range Comments SODIUM (BEAKER) (test 136 meq/L 136-145 czpk=827) POTASSIUM (BEAKER) (test 3.6 meq/L 3.5-5.1 smky=108) CHLORIDE (BEAKER) (test 104 meq/L 98-107 hqal=700) CO2 (BEAKER) (test 23 meq/L 22-29 qsbn=624) BLOOD UREA NITROGEN 11 mg/dL 7-21 (BEAKER) (test dzkf=253) CREATININE (BEAKER) (test 1.68 mg/dL 0.57-1.25 indl=909) GLUCOSE RANDOM (BEAKER) 99 mg/dL 70-105 (test qqsr=916) CALCIUM (BEAKER) (test 8.4 mg/dL 8.4-10.2 rhcd=536) EGFR (BEAKER) (test 33 mL/min/1.73 sq m ESTIMATED GFR IS NOT jakz=7406) ACCURATE CREATININE CLEARANCE IN PREDICTING GLOMERULAR FILTRATION RATE. ESTIMATED GFR IS NOT APPLICABLE FOR DIALYSIS PATIENTS. CBC W/PLT COUNT & AUTO [id number] 05:56:00 Test Item Value Reference Range Comments WHITE BLOOD CELL COUNT (BEAKER) (test hdpe=660) 11.7 K/ L 3.5-10.5 RED BLOOD CELL COUNT (BEAKER) (test pgxb=950) 3.95 M/ L 3.93-5.22 HEMOGLOBIN (BEAKER) (test lkhy=846) 12.1 GM/DL 11.2-15.7 HEMATOCRIT (BEAKER) (test sepf=269) 36.3 % 34.1-44.9 MEAN CORPUSCULAR VOLUME (BEAKER) (test uvyv=343) 91.9 fL 79.4-94.8 MEAN CORPUSCULAR HEMOGLOBIN (BEAKER) (test 30.6 pg 25.6-32.2 fraw=314) MEAN CORPUSCULAR HEMOGLOBIN CONC (BEAKER) (test 33.3 GM/DL 32.2-35.5 qeln=721) RED CELL DISTRIBUTION WIDTH (BEAKER) (test 12.7 % 11.7-14.4 ssjg=651) PLATELET COUNT (BEAKER) (test dowe=203) 349 K/CU MM 150-450 MEAN PLATELET VOLUME (BEAKER) (test hjvb=854) 10.8 fL 9.4-12.3 NUCLEATED RED BLOOD CELLS (BEAKER) (test 0 /100 WBC 0-0 zesw=517) NEUTROPHILS RELATIVE PERCENT (BEAKER) (test 59 % galf=991) LYMPHOCYTES RELATIVE PERCENT (BEAKER) (test 31 % ovgy=434) MONOCYTES RELATIVE PERCENT (BEAKER) (test 8 % qvow=036) EOSINOPHILS RELATIVE PERCENT (BEAKER) (test 2 % haxp=538) BASOPHILS RELATIVE PERCENT (BEAKER) (test 1 % wred=846) NEUTROPHILS ABSOLUTE COUNT (BEAKER) (test 6.87 K/ L 1.56-6.13 ihek=313) LYMPHOCYTES ABSOLUTE COUNT (BEAKER) (test 3.57 K/ L 1.18-3.74 nico=408) MONOCYTES ABSOLUTE COUNT (BEAKER) (test 0.90 K/ L 0.24-0.36 obgv=306) EOSINOPHILS ABSOLUTE COUNT (BEAKER) (test 0.24 K/ L 0.04-0.36 elnc=670) BASOPHILS ABSOLUTE COUNT (BEAKER) (test 0.06 K/ L 0.01-0.08 axsm=521) IMMATURE GRANULOCYTES-RELATIVE PERCENT (BEAKER) 0 % 0-1 (test dlzi=3591) POCT-GLUCOSE [id number] 04:32:00 Test Item Value Reference Range Comments POC-GLUCOSE METER (BEAKER) 107 mg/dL 70-110 TESTED AT [address] (test hwyo=5589) [facility] [address] POCT-GLUCOSE [id number] 22:21:00 Test Item Value Reference Range Comments POC-GLUCOSE METER (BEAKER) 118 mg/dL 70-110 TESTED AT [address] (test bcjk=4873) [facility] [address] POCT-GLUCOSE [id number] 21:22:00 Test Item Value Reference Range Comments POC-GLUCOSE METER (BEAKER) 52 mg/dL 70-110 Notified ARMOND REYNOSO/TESTED AT [facility] (test qovv=2664) [address] [place] [address] MICROALBUMIN, RANDOM [id number] 17:57:00 Test Item Value Reference Range Comments MICROALBUMIN URINE (BEAKER) (test egld=7395) > mg/dL Reference Range: No NormalsURINALYSIS W/ [id number] 17:36:00 Test Item Value Reference Range Comments COLOR (BEAKER) (test qadl=687) Light Yellow CLARITY (BEAKER) (test tunz=110) Clear SPECIFIC GRAVITY UA (BEAKER) (test ijxb=450) 1.005 1.001-1.035 PH UA (BEAKER) (test vsrs=428) 7.0 5.0-8.0 PROTEIN UA (BEAKER) (test ppdj=771) 300 mg/dL Negative GLUCOSE UA (BEAKER) (test ifmh=321) 30 mg/dL Negative KETONES UA (BEAKER) (test uwmm=298) Negative Negative BILIRUBIN UA (BEAKER) (test eivt=560) Negative Negative BLOOD UA (BEAKER) (test mvjs=300) Negative Negative NITRITE UA (BEAKER) (test arsd=858) Negative Negative LEUKOCYTE ESTERASE UA (BEAKER) (test stwv=043) Negative Negative UROBILINOGEN UA (BEAKER) (test qctr=695) 0.2 mg/dL 0.2-1.0 RBC UA (BEAKER) (test xtjy=497) 1 /HPF WBC UA (BEAKER) (test eisd=733) < /HPF BACTERIA (BEAKER) (test ogry=736) Rare SQUAMOUS EPITHELIAL (BEAKER) (test mohu=796) 1 /HPF SOURCE(BEAKER) (test ldti=0923) Urine, Voided SCREEN, [id number] 17:36:00 Test Item Value Reference Range Comments TEST URINE (BEAKER) (test hyps=725) Negative CREATININE, RANDOM [id number] 17:35:00 Test Item Value Reference Range Comments CREATININE URINE (BEAKER) (test plgp=159) 33.9 mg/dL Reference Range: No NormalsSODIUM, RANDOM [id number] 17:35:00 Test Item Value Reference Range Comments SODIUM URINE (BEAKER) (test wnrk=319) 63 meq/L Reference Range: No NormalsPOCT-GLUCOSE [id number] 17:34:00 Test Item Value Reference Range Comments POC-GLUCOSE METER (BEAKER) 118 mg/dL 70-110 TESTED AT [address] (test tbhi=4797) [facility] [address] POCT-GLUCOSE [id number] 13:28:00 Test Item Value Reference Range Comments POC-GLUCOSE METER (BEAKER) 71 mg/dL 70-110 TESTED AT [address] (test rhoa=3641) [facility] [address] POCT-GLUCOSE [id number] 10:37:00 Test Item Value Reference Range Comments POC-GLUCOSE METER (BEAKER) 144 mg/dL 70-110 TESTED AT [address] (test szug=8206) [facility] [address] POCT-GLUCOSE [id number] 07:18:00 Test Item Value Reference Range Comments POC-GLUCOSE METER (BEAKER) 60 mg/dL 70-110 TESTED AT [address] (test xtwy=1333) [place] [id number] CBC W/PLT COUNT & AUTO [id number] 05:51:00 Test Item Value Reference Range Comments WHITE BLOOD CELL COUNT (BEAKER) (test ittk=543) 11.4 K/ L 3.5-10.5 RED BLOOD CELL COUNT (BEAKER) (test onaf=429) 3.81 M/ L 3.93-5.22 HEMOGLOBIN (BEAKER) (test mtxx=812) 11.6 GM/DL 11.2-15.7 HEMATOCRIT (BEAKER) (test ltqw=142) 34.5 % 34.1-44.9 MEAN CORPUSCULAR VOLUME (BEAKER) (test page=126) 90.6 fL 79.4-94.8 MEAN CORPUSCULAR HEMOGLOBIN (BEAKER) (test 30.4 pg 25.6-32.2 wcnd=981) MEAN CORPUSCULAR HEMOGLOBIN CONC (BEAKER) (test 33.6 GM/DL 32.2-35.5 dzcz=383) RED CELL DISTRIBUTION WIDTH (BEAKER) (test 12.6 % 11.7-14.4 mbly=050) PLATELET COUNT (BEAKER) (test znfs=886) 354 K/CU MM 150-450 MEAN PLATELET VOLUME (BEAKER) (test pdco=694) 10.4 fL 9.4-12.3 NUCLEATED RED BLOOD CELLS (BEAKER) (test 0 /100 WBC 0-0 mlxp=309) NEUTROPHILS RELATIVE PERCENT (BEAKER) (test 72 % bcsm=947) LYMPHOCYTES RELATIVE PERCENT (BEAKER) (test 20 % prom=062) MONOCYTES RELATIVE PERCENT (BEAKER) (test 6 % ewsk=467) EOSINOPHILS RELATIVE PERCENT (BEAKER) (test 1 % urmk=685) BASOPHILS RELATIVE PERCENT (BEAKER) (test 0 % jcvk=978) NEUTROPHILS ABSOLUTE COUNT (BEAKER) (test 8.21 K/ L 1.56-6.13 skjn=939) LYMPHOCYTES ABSOLUTE COUNT (BEAKER) (test 2.31 K/ L 1.18-3.74 zwxi=214) MONOCYTES ABSOLUTE COUNT (BEAKER) (test 0.65 K/ L 0.24-0.36 qtzb=735) EOSINOPHILS ABSOLUTE COUNT (BEAKER) (test 0.11 K/ L 0.04-0.36 cznq=801) BASOPHILS ABSOLUTE COUNT (BEAKER) (test 0.05 K/ L 0.01-0.08 xycr=099) IMMATURE GRANULOCYTES-RELATIVE PERCENT (BEAKER) 0 % 0-1 (test hxra=9669) BASIC METABOLIC [id number] 05:51:00 Test Item Value Reference Range Comments SODIUM (BEAKER) (test 138 meq/L 136-145 oxyz=508) POTASSIUM (BEAKER) (test 3.8 meq/L 3.5-5.1 mhnf=636) CHLORIDE (BEAKER) (test 105 meq/L 98-107 ufkj=070) CO2 (BEAKER) (test 26 meq/L 22-29 otbn=388) BLOOD UREA NITROGEN 13 mg/dL 7-21 (BEAKER) (test kphw=265) CREATININE (BEAKER) (test 1.66 mg/dL 0.57-1.25 dihg=727) GLUCOSE RANDOM (BEAKER) 167 mg/dL 70-105 (test mluv=656) CALCIUM (BEAKER) (test 8.9 mg/dL 8.4-10.2 shww=632) EGFR (BEAKER) (test 34 mL/min/1.73 sq m ESTIMATED GFR IS NOT ifrs=9611) ACCURATE CREATININE CLEARANCE IN PREDICTING GLOMERULAR FILTRATION RATE. ESTIMATED GFR IS NOT APPLICABLE FOR DIALYSIS PATIENTS. POCT-GLUCOSE [id number] 21:41:00 Test Item Value Reference Range Comments POC-GLUCOSE METER (BEAKER) 287 mg/dL 70-110 TESTED AT [facility] (test iagd=4612) [facility] [address] BASIC METABOLIC [id number] 12:35:00 Test Item Value Reference Range Comments SODIUM (BEAKER) (test 134 meq/L 136-145 ygrh=911) POTASSIUM (BEAKER) (test 4.6 meq/L 3.5-5.1 bqua=866) CHLORIDE (BEAKER) (test 105 meq/L 98-107 spcn=409) CO2 (BEAKER) (test 23 meq/L 22-29 zppy=110) BLOOD UREA NITROGEN 14 mg/dL 7-21 (BEAKER) (test vxnw=081) CREATININE (BEAKER) 1.59 mg/dL 0.57-1.25 (test oetj=618) GLUCOSE RANDOM (BEAKER) 266 mg/dL 70-105 (test dduz=045) CALCIUM (BEAKER) (test 8.2 mg/dL 8.4-10.2 ttbn=575) EGFR (BEAKER) (test 36 mL/min/1.73 sq m INSUFFICIENT CLINICAL DATA jbfh=8368) TO CALCULATE ESTIMATED GFR.This is an appended report. These results have been appended to a previously final verified report. CBC W/PLT COUNT & AUTO [id number] 04:54:00 Test Item Value Reference Range Comments WHITE BLOOD CELL COUNT (BEAKER) (test wicv=603) 10.6 K/ L 3.5-10.5 RED BLOOD CELL COUNT (BEAKER) (test kair=765) 3.55 M/ L 3.93-5.22 HEMOGLOBIN (BEAKER) (test jdnj=386) 10.8 GM/DL 11.2-15.7 HEMATOCRIT (BEAKER) (test qqll=566) 32.6 % 34.1-44.9 MEAN CORPUSCULAR VOLUME (BEAKER) (test racz=592) 91.8 fL 79.4-94.8 MEAN CORPUSCULAR HEMOGLOBIN (BEAKER) (test 30.4 pg 25.6-32.2 ssdw=404) MEAN CORPUSCULAR HEMOGLOBIN CONC (BEAKER) (test 33.1 GM/DL 32.2-35.5 xkoy=116) RED CELL DISTRIBUTION WIDTH (BEAKER) (test 12.3 % 11.7-14.4 touz=078) PLATELET COUNT (BEAKER) (test xtqp=659) 311 K/CU MM 150-450 MEAN PLATELET VOLUME (BEAKER) (test wrnf=114) 10.2 fL 9.4-12.3 NUCLEATED RED BLOOD CELLS (BEAKER) (test 0 /100 WBC 0-0 twih=087) NEUTROPHILS RELATIVE PERCENT (BEAKER) (test 71 % sros=241) LYMPHOCYTES RELATIVE PERCENT (BEAKER) (test 20 % timi=354) MONOCYTES RELATIVE PERCENT (BEAKER) (test 6 % qkbw=029) EOSINOPHILS RELATIVE PERCENT (BEAKER) (test 3 % vgnf=976) BASOPHILS RELATIVE PERCENT (BEAKER) (test 1 % nzua=897) NEUTROPHILS ABSOLUTE COUNT (BEAKER) (test 7.51 K/ L 1.56-6.13 akvv=847) LYMPHOCYTES ABSOLUTE COUNT (BEAKER) (test 2.11 K/ L 1.18-3.74 wpjp=647) MONOCYTES ABSOLUTE COUNT (BEAKER) (test 0.60 K/ L 0.24-0.36 kemo=418) EOSINOPHILS ABSOLUTE COUNT (BEAKER) (test 0.27 K/ L 0.04-0.36 mmhn=885) BASOPHILS ABSOLUTE COUNT (BEAKER) (test 0.07 K/ L 0.01-0.08 ancr=277) IMMATURE GRANULOCYTES-RELATIVE PERCENT (BEAKER) 1 % 0-1 (test cshe=2480) [id number] 20:17:00 Test Item Value Reference Range Comments RPR SCREEN (BEAKER) (test wqcu=063) Nonreactive Nonreactive POCT-GLUCOSE [id number] 18:09:00 Test Item Value Reference Range Comments POC-GLUCOSE METER (BEAKER) 215 mg/dL 70-110 TESTED AT [facility] [address] [facility] (test ibbn=1018) [place] [address] CBC W/PLT COUNT & AUTO [id number] 11:54:00 Test Item Value Reference Range Comments WHITE BLOOD CELL COUNT (BEAKER) (test tvrr=051) 9.3 K/ L 3.5-10.5 RED BLOOD CELL COUNT (BEAKER) (test frmu=586) 3.45 M/ L 3.93-5.22 HEMOGLOBIN (BEAKER) (test rgvo=858) 10.7 GM/DL 11.2-15.7 HEMATOCRIT (BEAKER) (test iwue=294) 32.0 % 34.1-44.9 MEAN CORPUSCULAR VOLUME (BEAKER) (test tkgy=018) 92.8 fL 79.4-94.8 MEAN CORPUSCULAR HEMOGLOBIN (BEAKER) (test 31.0 pg 25.6-32.2 djxg=431) MEAN CORPUSCULAR HEMOGLOBIN CONC (BEAKER) (test 33.4 GM/DL 32.2-35.5 qmqo=527) RED CELL DISTRIBUTION WIDTH (BEAKER) (test 12.7 % 11.7-14.4 lmzq=252) PLATELET COUNT (BEAKER) (test nboc=840) 302 K/CU MM 150-450 MEAN PLATELET VOLUME (BEAKER) (test ldpg=849) 10.0 fL 9.4-12.3 NUCLEATED RED BLOOD CELLS (BEAKER) (test 0 /100 WBC 0-0 mryu=101) NEUTROPHILS RELATIVE PERCENT (BEAKER) (test 60 % dbxn=096) LYMPHOCYTES RELATIVE PERCENT (BEAKER) (test 29 % tzml=143) MONOCYTES RELATIVE PERCENT (BEAKER) (test 8 % wtnl=662) EOSINOPHILS RELATIVE PERCENT (BEAKER) (test 3 % dieq=073) BASOPHILS RELATIVE PERCENT (BEAKER) (test 1 % npyk=725) NEUTROPHILS ABSOLUTE COUNT (BEAKER) (test 5.55 K/ L 1.56-6.13 obsv=394) LYMPHOCYTES ABSOLUTE COUNT (BEAKER) (test 2.65 K/ L 1.18-3.74 vsei=887) MONOCYTES ABSOLUTE COUNT (BEAKER) (test 0.70 K/ L 0.24-0.36 doup=532) EOSINOPHILS ABSOLUTE COUNT (BEAKER) (test 0.31 K/ L 0.04-0.36 mfss=109) BASOPHILS ABSOLUTE COUNT (BEAKER) (test 0.05 K/ L 0.01-0.08 ahag=987) IMMATURE GRANULOCYTES-RELATIVE PERCENT (BEAKER) 0 % 0-1 (test kgzg=1233) (MANUAL DIFFERENTIAL)2017-03-15 11:54:00 Test Item Value Reference Range Comments TOTAL COUNTED (BEAKER) (test ftjl=6144) WBC MORPHOLOGY (BEAKER) (test mlqw=760) Normal PLT MORPHOLOGY (BEAKER) (test wkcp=245) Normal RBC MORPHOLOGY (BEAKER) (test mnxu=466) Normal SEDIMENTATION [id number] 10:27:00 Test Item Value Reference Range Comments SEDIMENTATION RATE, ERYTHROCYTE (BEAKER) (test 79 mm/HR 0-20 mhlf=216) HEMOGLOBIN [id number] 09:33:00 Test Item Value Reference Range Comments HEMOGLOBIN A1C (BEAKER) (test iwqx=127) 9.8 % 4.3-6.1 VITAMIN [id number] 09:14:00 Test Item Value Reference Range Comments VITAMIN B12 (BEAKER) (test jgkc=565) 1790 pg/mL 213-816 TSH/FREE T4 IF [id number] 09:14:00 Test Item Value Reference Range Comments THYROID STIMULATING HORMONE (BEAKER) (test 1.08 uIU/mL 0.35-4.94 hbdv=463) BASIC METABOLIC [id number] 08:52:00 Test Item Value Reference Range Comments SODIUM (BEAKER) (test 137 meq/L 136-145 hgmp=809) POTASSIUM (BEAKER) (test 4.7 meq/L 3.5-5.1 xcar=947) CHLORIDE (BEAKER) (test 107 meq/L 98-107 bxfv=422) CO2 (BEAKER) (test 25 meq/L 22-29 oegz=815) BLOOD UREA NITROGEN 18 mg/dL 7-21 (BEAKER) (test lzya=853) CREATININE (BEAKER) (test 1.77 mg/dL 0.57-1.25 blgx=441) GLUCOSE RANDOM (BEAKER) 290 mg/dL 70-105 (test btum=166) CALCIUM (BEAKER) (test 8.0 mg/dL 8.4-10.2 fhtu=187) EGFR (BEAKER) (test mL/min/1.73 sq m INSUFFICIENT CLINICAL DATA dmqb=8458) TO CALCULATE ESTIMATED GFR. FastingLIPID [id number] 08:51:00 Test Item Value Reference Range Comments TRIGLYCERIDES (BEAKER) (test pfnq=595) 90 mg/dL CHOLESTEROL (BEAKER) (test tcxt=173) 143 mg/dL HDL CHOLESTEROL (BEAKER) (test adww=496) 44 mg/dL LDL CHOLESTEROL CALCULATED (BEAKER) (test 81 mg/dL bifo=648) Triglyceride Reference Range: Low Risk <150 Borderline 150- 199 High Risk 200-499 Very High Risk >=500Cholesterol Reference Range: Low Risk <200 Borderline 200-239 High Risk > 240HDL Cholesterol Reference Range: Low Risk >=60 High Risk <40LDL Cholesterol Reference Range: Optimal <100 Near Optimal 100-129 Borderline 130-159 High 160-189 Very High >=190 FastingHCG, QUANTITATIVE, [id number] 01:43:00 Test Item Value Reference Range Comments GONADOTROPIN, CHORIONIC (HCG) QUANT (BEAKER) (test < mIU/mL 0-10 npvd=866) Non- Females: <10 mIU/mL Females: Gestation Age Reference Range(mIU/mL) 0.2-1 Week 5-50 1-2 Weeks 50-500 2-3 Weeks 100-5,000 3-4Weeks 500-10,000 4 -5 Weeks 1,000-50,000 5-6 Weeks 10,000-100,000 6-8 Weeks 15,000-200,000 2-3 Months 10,000-100,000COMPREHENSIVE METABOLIC [id number] 21:57:00 Test Item Value Reference Range Comments TOTAL PROTEIN (BEAKER) 5.0 gm/dL 6.0-8.3 (test cfur=401) ALBUMIN (BEAKER) (test 2.1 g/dL 3.5-5.0 ppvk=0862) ALKALINE PHOSPHATASE 106 U/L 40-150 (BEAKER) (test geia=579) BILIRUBIN TOTAL (BEAKER) 0.2 mg/dL 0.2-1.2 (test pbin=377) SODIUM (BEAKER) (test 137 meq/L 136-145 wadn=893) POTASSIUM (BEAKER) (test 4.7 meq/L 3.5-5.1 hxrq=958) CHLORIDE (BEAKER) (test 106 meq/L 98-107 dzap=458) CO2 (BEAKER) (test 25 meq/L 22-29 wpym=679) BLOOD UREA NITROGEN 21 mg/dL 7-21 (BEAKER) (test rhjh=760) CREATININE (BEAKER) (test 2.00 mg/dL 0.57-1.25 zhpc=957) GLUCOSE RANDOM (BEAKER) 285 mg/dL 70-105 (test zkds=161) CALCIUM (BEAKER) (test 7.9 mg/dL 8.4-10.2 soea=952) AST (SGOT) (BEAKER) (test 16 U/L 5-34 qogm=696) ALT (SGPT) (BEAKER) (test 14 U/L 6-55 igyn=391) EGFR ([facility]) (test mL/min/1.73 sq m INSUFFICIENT CLINICAL DATA tyno=1800) TO CALCULATE ESTIMATED GFR. Unit CollectPOCT-GLUCOSE [id number] 21:50:00 Test Item Value Reference Range Comments POC-GLUCOSE METER ([facility]) 278 mg/dL 70-110 TESTED AT [facility] [id number] (test wzwj=1190) [facility] [id number]
[2019-04-11 15:11] LABS: Absolute Lymphocytes (CBC) 1.3 K/uL (0.7-4.9); Basophils % 0.5 % (0-1.3); Lymphocytes % 12.7 % (15.3-44.8); MPV 8.9 fL (7.6-11.3)
--- NOTE | 2019-04-11 15:17 | EKG ---
Test Date: 2019-04-11 Test Time: 15:04:27 Application Security Developer: NATHALIA MEASUREMENT RESULTS: Intervals: Rate: 79 ME: 136 QRSD: 70 QT: 382 QTc: 438 [place]: P: 74 ME: 136 QRS: 28 T: 75 INTERPRETIVE STATEMENTS: Normal sinus rhythm Normal ECG Compared to ECG 03/13/2019 10:48:18 Sinus tachycardia no longer present Electronically Signed On 04-11-19 15:16:51 CDT by Souleymane Julio
[2019-04-11 15:18] LABS: ALT/SGPT 19 U/L (12-78); AST/SGOT 10 U/L (15-37); Albumin 2.2 g/dL (3.4-5.0); Alkaline Phosphatase 204 U/L (45-117); BUN Blood Urea Nitrogen 45 mg/dL (7-18); Bicarbonate 24 mmol/L (21-32); Bilirubin Direct < 0.1 mg/dL (0-0.2); Bilirubin Total 0.4 mg/dL (0.2-1.0); Magnesium 2.1 mg/dL (1.8-2.4); NT PRO-BNP 3818 pg/mL (<125); Potassium 5.3 mmol/L (3.5-5.1); Protein, Total 6.7 g/dL (6.4-8.2); Sodium Level 134 mmol/L (136-145); Troponin (Emerg Dept Use Only) < 0.02 ng/mL (0.0-0.045)
[2019-04-11 15:20] LABS: Glucose Level 489 mg/dL (74-106)
[2019-04-11 15:31] LABS: Protime INR 0.89
[2019-04-11] MEDS ORDERED: FOLIC ACID 5 MG/ML VIAL ONE (16:03)
[2019-04-11] MEDS ORDERED: SOD POLYSTYREN SUL 15 GM/60 ML UCUP ONE (16:22)
--- NOTE | 2019-04-11 16:42 | RAD REPORT ---
EXAM DESCRIPTION: RAD - Chest Single View - 04/11/2019 4:23 pm CLINICAL HISTORY: Cough, dialysis patient COMPARISON: March 16 TECHNIQUE: AP portable chest image was obtained 620 hours . FINDINGS: Lung volumes are low but clear. No failure or volume overload. Heart and vasculature are n ormal. No measurable pleural effusion and no pneumothorax. No acute bony abnormality seen. No acute a ortic findings suspected. IMPRESSION: No acute cardiopulmonary process. No suspicious interval change.
--- NOTE | 2019-04-11 16:48 | ER ---
Nurse's Notes [facility] Name: Archana Woo Age: 43 yrs Sex: Female : 1975 Arrival Date: 04/11/2019 Time: 14:31 Bed 7 Private MD: Diagnosis: Weakness;Type 1 diabetes mellitus;End stage renal disease;Hyperkalemia;Cerebral infarction-RIGHT TEMPORAL;Essential (primary) hypertension Presentation: 04/11 14:27 Presenting complaint: EMS states: pt from [facility] started having numbness yesterday tw2 morning on the left side, dialysis sent her here to be checked out no dialysis today, BGL was 485, her glucometer is broken but states she did take insulin last night. 15:56 Transition of care: patient was not received from another setting of care. Onset of tw2 symptoms was April 11, 2019. Risk Assessment: Do you want to hurt yourself or someone else? Patient reports no desire to harm self or others. Initial Sepsis Screen: Does the patient meet any 2 criteria? No. Patient's initial sepsis screen is negative. Does the patient have a suspected source of infection? No. Patient's initial sepsis screen is negative. Care prior to arrival: None. 15:56 Method Of Arrival: EMS: [facility] tw2 15:56 Acuity: TARUN 3 tw2 HEEL BUFFER: 17:22 LMP N/A - . tw2 Historical: - Allergies: 15:29 No Known Allergies; tw2 - Home Meds: 15:29 Hydrocodone-Acetaminophen Oral [Active]; calcitriol 0.25 mcg oral cap 1 cap [Active]; tw2 docusate sodium 100 mg oral cap 1 cap once daily [Active]; hydralazine 25 mg Oral tab 1 tab 4 times per day [Active]; furosemide 80 mg Oral tab 1 tab 2 times per day [Active]; Lantus 100 unit/mL Sub-Q soln [Active]; - PMHx: 15:29 BLIND; CVA; Depression; Diabetes - NIDDM; GERD; Hyperlipidemia; Hypertension; tw2 neuropathy; THYROID CANCER; TIA; - Immunization history:: Adult Immunizations. - Social history:: Smoking status: . - Ebola Screening: : Patient denies travel to an Ebola-affected area in the 21 days before illness onset. - Family history:: not pertinent. Screenin:22 Abuse screen: Denies threats or abuse. Nutritional screening: No deficits noted. tw2 Tuberculosis screening: No symptoms or risk factors identified. Fall Risk None identified. Assessment: 14:31 General: Appears in no apparent distress. Behavior is calm, cooperative, appropriate tw2 for age. Pain: Denies pain. Neuro: Level of Consciousness is awake, alert, obeys commands, Oriented to person, place, time, situation, Reports numbness in left arm and left leg since "yesterday morning". Cardiovascular: Heart tones S1 S2 Patient's skin is warm and dry. Respiratory: Airway is patent Respiratory effort is even, unlabored, Respiratory pattern is regular, symmetrical, Breath sounds are clear bilaterally. GI: No signs and/or symptoms were reported involving the gastrointestinal system. Abdomen is flat, non-distended, Bowel sounds present X 4 quads. : No signs and/or symptoms were reported regarding the genitourinary system. EENT: Reports blindness, not a new complaint. Derm: No signs and/or symptoms reported regarding the dermatologic system. Musculoskeletal: Range of motion: intact in all extremities. 15:30 Reassessment: Patient appears in no apparent distress at this time. No changes from tw2 previously documented assessment. Patient and/or family updated on plan of care and expected duration. Pain level reassessed. Patient is alert, oriented x 3, equal unlabored respirations, skin warm/dry/pink. 16:30 Reassessment: Patient appears in no apparent distress at this time. No changes from tw2 previously documented assessment. Patient and/or family updated on plan of care and expected duration. Pain level reassessed. Patient is alert, oriented x 3, equal unlabored respirations, skin warm/dry/pink. 17:19 Reassessment: pt is in MRI at this time. tw2 18:21 Reassessment: Patient appears in no apparent distress at this time. No changes from tw2 previously documented assessment. Patient and/or family updated on plan of care and expected duration. Pain level reassessed. Patient is alert, oriented x 3, equal unlabored respirations, skin warm/dry/pink. 19:15 General: Appears in no apparent distress. comfortable, Behavior is calm, cooperative, rr5 appropriate for age. Neuro: Level of Consciousness is awake, alert, obeys commands, Oriented to person, place, time, situation, Appropriate for age Reports numbness in left arm and left leg since yesterday morning. 19:15 Cardiovascular: Capillary refill < 3 seconds Patient's skin is warm and dry. rr5 Respiratory: Airway is patent Respiratory effort is even, unlabored, Respiratory pattern is regular, symmetrical. GI: Abdomen is flat, non-distended. : No signs and/or symptoms were reported regarding the genitourinary system. EENT: Reports blind. Derm: Skin is intact, Skin temperature is warm Rash noted that is red, on right leg and left leg. Musculoskeletal: Circulation, motion, and sensation intact. Capillary refill < 3 seconds. Vital Signs: 14:40 BP 167 / 74; Pulse 79; Resp 18; Temp 98.1(O); Pulse Ox 100% on R/A; Pain 0/10; tw2 15:23 BP 167 / 87; Pulse 76; Resp 17; Pulse Ox 100% on R/A; tw2 16:30 BP 186 / 82; Pulse 72; Resp 17; Pulse Ox 100% on R/A; tw2 19:09 BP 152 / 74; Pulse 80; Resp 17; Pulse Ox 100% on R/A; tw2 19:56 BP 144 / 77; Pulse 80; Resp 17; Temp 98; Pulse Ox 100% on R/A; rr5 NIH Stroke Scale Scores: 16:01 NIHSS Score: 0 davion ED Course: 14:31 Patient arrived in ED. tw2 14:32 Notified ED physician of Notified primary nurse of point of care results. em1 14:32 Bed in low position. Call light in reach. bag machine adjuster on. Pulse ox on. NIBP on. tw2 14:39 Mery Wang, RN is Primary Nurse. tw2 14:42 Inserted saline lock: 22 gauge in right antecubital area, using aseptic technique. tw2 Blood collected. Missed attempt(s): 22 gauge in right antecubital area. Bleeding controlled, band aid applied, catheter tip intact. 14:54 Zelalem Brenner MD is Attending Physician. davion 15:13 EKG done, by broadband technician. reviewed by Zelalem Brenner MD. sm3 15:57 Triage completed. tw2 16:22 Chest Single View XRAY In Process Unspecified. EDMS 16:46 Yvette Sims MD is Hospitalizing Provider. davion 17:12 Brain Wo Cont In Process Unspecified. EDMS 17:22 Arm band placed on. tw2 19:15 Report given to ARMOND Alexandre and JeseniaRN. tw2 19:55 No provider procedures requiring assistance completed. Patient admitted, IV remains in rr5 place. intact, No redness/swelling at site. Administered Medications: 16:06 Drug: foLIC Acid 1 mg Route: IVPB; Site: right antecubital; tw2 16:06 Follow up: Response: No adverse reaction; IV Status: Completed infusion tw2 16:25 Drug: Kayexalate 30 grams Route: PO; tw2 17:55 Follow up: Response: No adverse reaction iw 17:49 Drug: Insulin Regular Human 10 units {Co-Signature: saúl (Rayo Noriega RN).} Route: IVP; tw2 Site: right antecubital; 19:00 Follow up: Response: No adverse reaction; Blood sugar is lowered rr5 17:49 Drug: Insulin Regular Human 10 units {Co-Signature: saúl (Rayo Noriega RN).} Route: Sub-Q; tw2 Site: right upper arm; 19:00 Follow up: Response: Blood sugar is lowered rr5 18:23 Drug: Aspirin Chewable Tablet 324 mg Route: PO; tw2 20:01 Follow up: Response: No adverse reaction rr5 Point of Care Testing: Blood Glucose: 14:32 Blood Glucose: High (>450 mg/dL); em1 17:49 Blood Glucose: High (>450 mg/dL); tw2 19:11 Blood Glucose: 299 mg/dL; rr5 17:49 blood glucose drawn and sent to lab at this time. tw2 Ranges: Outcome: 16:47 Decision to Hospitalize by Provider. davion 19:55 Admitted to Med/surg accompanied by tech, via stretcher, room 232, with chart, Report rr5 called to [facility] 19:55 Condition: stable 19:55 Instructed on the need for admit. 20:24 Patient left the ED. rr5 NIH Stroke Scale - NIH Stroke Score Date: 04/11/2019 Time: 16:01 Total Score = 0 1a. Level of Consciousness (LOC) - 0(Alert) 1b. Level of Consciousness (LOC) (Year \\T\\ Age) - 0(Both) 1c. LOC Commands (Open \\T\\ Closes Eyes/Head School Custodian) - 0(Both) 2. Best Gaze (Lateral Gaze Paresis) - 0(Normal) 3. Visual Field Loss - 0(No visual loss) 4. Facial Palsy - 0(Normal) 5a. Left Arm: Motor (10-second hold) - 0(No drift) 5b. Right Arm: Motor (10-second hold) - 0(No drift) 6a. Left Leg: Motor (5-second hold - always test supine) - 0(No drift) 6b. Right Leg: Motor (5-second hold - always test supine) - 0(No drift) 7. Limb Ataxia (finger/nose \\T\\ heel/shetty - test with eyes open) - 0(Absent) 8. Sensory Loss (pinprick arms/legs/face) - 0(Normal) 9. Best Language: Aphasia (description/naming/reading) - 0(No aphasia) 10. Dysarthria (speech clarity - read or repeat words) - 0(Normal) 11. Extinction and Inattention (visual/tactile/auditory/spatial/personal) - 0(No abnormality) Initials: davion Signatures: Dispatcher [employer] EDMS Zelalem Brenner MD MD cha Williams, Irene, RN RN iw Ricco Castillo em1 Mery Wang RN RN tw2 Lalita Khalil 3 Baldomero Valverde, RN RN rr5 Rayo Noriega RN sg Corrections: (The following items were deleted from the chart) 15:57 14:27 Presenting complaint: EMS states: pt from [facility]
--- NOTE | 2019-04-11 16:49 | EDPHYS ---
Physician Documentation [facility] Name: Archana Woo Age: 43 yrs Sex: Female : 1975 Arrival Date: 04/11/2019 Time: 14:31 Bed 7 Private MD: ED Physician Zelalem Brenner HPI: 04/11 16:00 This 43 yrs old Female presents to ER via EMS with complaints of Weakness, davion High Blood Sugar. 16:00 The patient presents to the emergency department with weakness of the. 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 tw2 Historical: - Allergies: 15:29 No Known Allergies; tw2 - Home Meds: 15:29 Hydrocodone-Acetaminophen Oral [Active]; calcitriol 0.25 mcg oral cap 1 cap [Active]; tw2 docusate sodium 100 mg oral cap 1 cap once daily [Active]; hydralazine 25 mg Oral tab 1 tab 4 times per day [Active]; furosemide 80 mg Oral tab 1 tab 2 times per day [Active]; Lantus 100 unit/mL Sub-Q soln [Active]; - PMHx: 15:29 BLIND; CVA; Depression; Diabetes - NIDDM; GERD; Hyperlipidemia; Hypertension; tw2 neuropathy; THYROID CANCER; TIA; - Immunization history:: Adult Immunizations. - Social history:: Smoking status: . - Ebola Screening: : Patient denies travel to an Ebola-affected area in the 21 days before illness onset. - Family history:: not pertinent. ROS: 16:01 Constitutional: Negative for fever, chills, and weight loss, Eyes: Negative for injury, davion pain, redness, and discharge, ENT: Negative for injury, pain, and discharge, Neck: Negative for injury, pain, and swelling, Cardiovascular: Negative for chest pain, palpitations, and edema, Respiratory: Negative for shortness of breath, cough, wheezing, and pleuritic chest pain, Abdomen/GI: Negative for abdominal pain, nausea, vomiting, diarrhea, and constipation, Back: Negative for injury and pain, : Negative for injury, bleeding, discharge, and swelling, MS/Extremity: Negative for injury and deformity, Skin: Negative for injury, rash, and discoloration, Psych: Negative for depression, anxiety, suicide ideation, homicidal ideation, and hallucinations, Allergy/Immunology: Negative for hives, rash, and allergies, Endocrine: Negative for neck swelling, polydipsia, polyuria, polyphagia, and marked weight changes, Hematologic/Lymphatic: Negative for swollen nodes, abnormal bleeding, and unusual bruising. 16:01 Neuro: Positive for numbness, weakness. Exam: 16:01 Constitutional: This is a well developed, well nourished patient who is awake, alert, davion and in no acute distress. Head/Face: Normocephalic, atraumatic. Eyes: Pupils equal round and reactive to light, extra-ocular motions intact. Lids and lashes normal. Conjunctiva and sclera are non-icteric and not injected. Cornea within normal limits. Periorbital areas with no swelling, redness, or edema. ENT: Nares patent. No nasal discharge, no septal abnormalities noted. Tympanic membranes are normal and external auditory canals are clear. Oropharynx with no redness, swelling, or masses, exudates, or evidence of obstruction, uvula midline. Mucous membranes moist. Neck: Trachea midline, no thyromegaly or masses palpated, and no cervical lymphadenopathy. Supple, full range of motion without nuchal rigidity, or vertebral point tenderness. No Meningismus. Chest/axilla: Normal chest wall appearance and motion. Nontender with no deformity. No lesions are appreciated. Cardiovascular: Regular rate and rhythm with a normal S1 and S2. No gallops, murmurs, or rubs. Normal PMI, no JVD. No pulse deficits. Respiratory: Lungs have equal breath sounds bilaterally, clear to auscultation and percussion. No rales, rhonchi or wheezes noted. No increased work of breathing, no retractions or nasal flaring. Abdomen/GI: Soft, non-tender, with normal bowel sounds. No distension or tympany. No guarding or rebound. No evidence of tenderness throughout. Back: No spinal tenderness. No costovertebral tenderness. Full range of motion. Female : Normal external genitalia. Skin: Warm, dry with normal turgor. Normal color with no rashes, no lesions, and no evidence of cellulitis. MS/ Extremity: Pulses equal, no cyanosis. Neurovascular intact. Full, normal range of motion. Neuro: Awake and alert, GCS 15, oriented to person, place, time, and situation. Cranial nerves II-XII grossly intact. Motor strength 5/5 in all extremities. Sensory grossly intact. Cerebellar exam normal. Normal gait. Psych: Awake, alert, with orientation to person, place and time. Behavior, mood, and affect are within normal limits. 16:44 Radiologist reports: SEE MRI REPORT [facility] Vital Signs: 14:40 BP 167 / 74; Pulse 79; Resp 18; Temp 98.1(O); Pulse Ox 100% on R/A; Pain 0/10; tw2 15:23 BP 167 / 87; Pulse 76; Resp 17; Pulse Ox 100% on R/A; tw2 16:30 BP 186 / 82; Pulse 72; Resp 17; Pulse Ox 100% on R/A; tw2 19:09 BP 152 / 74; Pulse 80; Resp 17; Pulse Ox 100% on R/A; tw2 19:56 BP 144 / 77; Pulse 80; Resp 17; Temp 98; Pulse Ox 100% on R/A; rr5 NIH Stroke Scale Scores: 16:01 NIHSS Score: 0 [facility] MDM: 14:54 Patient medically screened. [facility] 16:02 Data reviewed: vital signs, nurses notes, lab test result(s), EKG, radiologic studies, [facility] plain films. 18:10 ED course: STOKE SYMPTOMS BEGAN OVER 24 HOURS AGO, NO A TPA CANDIDATE. [facility] 04/11 14:32 Order name: glucometer results - FOR PT WITH NO ID em1 04/11 14:39 Order name: Basic Metabolic Panel; Complete Time: 15:59 tw2 04/11 14:39 Order name: CBC with Diff; Complete Time: 15:59 tw2 04/11 14:39 Order name: LFT's; Complete Time: 15:59 tw2 04/11 14:39 Order name: Magnesium; Complete Time: 15:59 tw2 04/11 14:39 Order name: NT PRO-BNP; Complete Time: 15:59 2 04/11 14:39 Order name: PT-INR; Complete Time: 15:59 tw2 04/11 14:39 Order name: Troponin (emerg Dept Use Only); Complete Time: 15:59 tw2 04/11 15:58 Order name: Urine Culture [facility] 04/11 16:00 Order name: Chest Single View XRAY; Complete Time: 17:51 [facility] 04/11 16:12 Order name: Brain Wo Cont; Complete Time: 17:51 EDMS 04/11 17:49 Order name: Glucose tw2 04/11 17:52 Order name: Glucose, Ancillary Testing; Complete Time: 17:53 EDMS 04/11 14:39 Order name: EKG; Complete Time: 14:40 tw2 04/11 14:39 Order name: Cardiac monitoring; Complete Time: 14:40 tw2 04/11 14:39 Order name: IV Saline Lock; Complete Time: 14:40 tw2 04/11 14:39 Order name: Labs collected and sent; Complete Time: 14:40 tw2 04/11 14:39 Order name: O2 Per Protocol; Complete Time: 14:40 tw2 04/11 14:39 Order name: O2 Sat Monitoring; Complete Time: 14:40 tw2 Administered Medications: 16:06 Drug: foLIC Acid 1 mg Route: IVPB; Site: right antecubital; tw2 16:06 Follow up: Response: No adverse reaction; IV Status: Completed infusion tw2 16:25 Drug: Kayexalate 30 grams Route: PO; tw2 17:55 Follow up: Response: No adverse reaction iw 17:49 Drug: Insulin Regular Human 10 units {Co-Signature: saúl (Rayo Noriega RN).} Route: IVP; tw2 Site: right antecubital; 19:00 Follow up: Response: No adverse reaction; Blood sugar is lowered rr5 17:49 Drug: Insulin Regular Human 10 units {Co-Signature: saúl (Rayo Noriega RN).} Route: Sub-Q; tw2 Site: right upper arm; 19:00 Follow up: Response: Blood sugar is lowered rr5 18:23 Drug: Aspirin Chewable Tablet 324 mg Route: PO; tw2 20:01 Follow up: Response: No adverse reaction rr5 Point of Care Testing: Blood Glucose: 14:32 Blood Glucose: High (>450 mg/dL); em1 17:49 Blood Glucose: High (>450 mg/dL); tw2 19:11 Blood Glucose: 299 mg/dL; rr5 17:49 blood glucose drawn and sent to lab at this time. tw2 Ranges: Critical Glucose Levels:Adult <50 mg/dl or >400 mg/dl <40 mg/dl or >180 mg/dl Disposition: 04/11/19 16:47 Hospitalization ordered by Yvette Sims for Inpatient Admission. Preliminary diagnosis are Weakness, Type 1 diabetes mellitus, End stage renal disease, Hyperkalemia, Cerebral infarction - RIGHT TEMPORAL, Essential (primary) hypertension. - Bed requested for Telemetry/MedSurg (Inpatient). - Status is Inpatient Admission. rr5 - Condition is Fair. - Problem is new. - Symptoms have improved. UTI on Admission? No NIH Stroke Scale - NIH Stroke Score Date: 04/11/2019 Time: 16:01 Total Score = 0 1a. Level of Consciousness (LOC) - 0(Alert) 1b. Level of Consciousness (LOC) (Year \T\ Age) - 0(Both) 1c. LOC Commands (Open \T\ Closes Eyes/Repairer Wood Furniture) - 0(Both) 2. Best Gaze (Lateral Gaze Paresis) - 0(Normal) 3. Visual Field Loss - 0(No visual loss) 4. Facial Palsy - 0(Normal) 5a. Left Arm: Motor (10-second hold) - 0(No drift) 5b. Right Arm: Motor (10-second hold) - 0(No drift) 6a. Left Leg: Motor (5-second hold - always test supine) - 0(No drift) 6b. Right Leg: Motor (5-second hold - always test supine) - 0(No drift) 7. Limb Ataxia (finger/nose \T\ heel/shetty - test with eyes open) - 0(Absent) 8. Sensory Loss (pinprick arms/legs/face) - 0(Normal) 9. Best Language: Aphasia (description/naming/reading) - 0(No aphasia) 10. Dysarthria (speech clarity - read or repeat words) - 0(Normal) 11. Extinction and Inattention (visual/tactile/auditory/spatial/personal) - 0(No abnormality) Initials: davion Signatures: Dispatcher [employer] EDMS Jil Baird Corey, MD MD cha Wise, Tara RN RN tw2 Baldomero Valverde RN RN rr5 Margarita Wheatley RN iw Rayo Noriega RN sg Corrections: (The following items were deleted from the chart) 16:12 15:59 MR STROKE PROTOCOL+MRI.RAD.BRZ ordered. EDMT EDMS 17:57 16:47 Hospitalization Ordered by Yvette Sims MD for Inpatient Admission. davion Preliminary diagnosis is Weakness; Type 1 diabetes mellitus; End stage renal disease; Hyperkalemia. Bed requested for Telemetry/MedSurg (Inpatient). Status is Inpatient Admission. Condition is Fair. Problem is new. Symptoms have improved. UTI on Admission? No. davion 17:57 17:57 04/11/2019 16:47 Hospitalization Ordered by Yvette Sims MD for Inpatient davion Admission. Preliminary diagnosis is Weakness; Type 1 diabetes mellitus; End stage renal disease; Hyperkalemia; Cerebral infarction - RIGHT TEMPORAL. Bed requested for Telemetry/MedSurg (Inpatient). Status is Inpatient Admission. Condition is Fair. Problem is new. Symptoms have improved. UTI on Admission? No. davion 18:36 17:57 04/11/2019 16:47 Hospitalization Ordered by Yvette Sims MD for Inpatient bd Admission. Preliminary diagnosis is Weakness; Type 1 diabetes mellitus; End stage renal disease; Hyperkalemia; Cerebral infarction - RIGHT TEMPORAL; Essential (primary) hypertension. Bed requested for Telemetry/MedSurg (Inpatient). Status is Inpatient Admission. Condition is Fair. Problem is new. Symptoms have improved. UTI on Admission? No. davion 20:24 18:36 04/11/2019 16:47 Hospitalization Ordered by Yvette Sims MD for Inpatient rr5 Admission. Preliminary diagnosis is Weakness; Type 1 diabetes mellitus; End stage renal disease; Hyperkalemia; Cerebral infarction - RIGHT TEMPORAL; Essential (primary) hypertension. Bed requested for Telemetry/MedSurg (Inpatient). Status is Inpatient Admission. Condition is Fair. Problem is new. Symptoms have improved. UTI on Admission? No. bd
[2019-04-11] MEDS ORDERED: INSULIN -REGULAR HUMAN 50 UNIT/0.5 ML ML ONE (17:03)
--- NOTE | 2019-04-11 17:36 | RAD REPORT ---
EXAM DESCRIPTION: MRI - Brain Wo Cont - 04/11/2019 5:24 pm CLINICAL HISTORY: Dizziness;Weaknessleft-sided numbness, history of 3 prior strokes COMPARISON: MRI November 2018 TECHNIQUE: Sagittal T1-weighted images were obtained along with axial PD, heavily T2-weighted and T2 -FLAIR images. Axial DWI and ADC mapping sequences were also obtained along with coronal heavily T2-w eighted images. FINDINGS: No intracranial hemorrhage is present. Diffusion-weighted imaging shows 2 hyperintense foc i in the medial aspect of the right temporal lobe both with corresponding areas of diminished signal on ADC mapping. These areas are hyperintense on T2 stir sequencing. These are small foci of acute non hemorrhagic CVA. No cortical edema or sulcal effacement. Periventricular white matter signal abnormal ities are similar to comparison. No basal ganglia acute finding. Stable brainstem signal abnormality. Chronic ischemic insults are present in each thalamus, right greater than left There is no edema or shift of midline structures. No extra-axial fluid collections. Coffman-matter/white matter junction. Is preserved. Signal voids are seen as a normal finding in the major intracranial vessels. No globe or orbital content abnormality. No sella or supra sella abnormality. Mastoid air cells and paranasal sinuses are clear. IMPRESSION: Punctate nonhemorrhagic acute CVA changes in the medial right temporal lobe. T2 white matter signal abnormalities are present in the cerebral white matter, in each thalamus and t o a lesser degree in the brainstem. These are stable findings. These could be from prior ischemic i nsults or demyelinization.
[2019-04-11] MEDS ORDERED: ASPIRIN 81 MG CHEWABLE TABLET ONE (18:06)
[2019-04-11] MEDS ORDERED: ONDANSETRON 4 MG/2 ML VIAL IV PRN (20:08)
[2019-04-11] MEDS ORDERED: NA CHLORIDE 0.9% 1,000 ML IV SCH (20:08)
[2019-04-11] MEDS ORDERED: ACETAMINOPHEN 500 MG TAB PO PRN (20:08)
[2019-04-11] MEDS ORDERED: INSULIN -REGULAR HUMAN 50 UNIT/0.5 ML ML SQ SCH (21:00)
[2019-04-11] MEDS: ATORVASTATIN 20 MG TAB PO SCH (21:00)
[2019-04-11 21:36] LABS: Folic Acid, (Folate) 18.9 ng/mL (3.1-17.5)
[2019-04-11] MEDS ORDERED: D50W 25 GM/50 ML SYRINGE IV ONE ×2 (21:52→22:59)
[2019-04-11] MEDS ORDERED: D5W 1,000 ML IV SCH (23:45)
[2019-04-11] MEDS ORDERED: D50W 25 GM/50 ML SYRINGE IV PRN (23:50)
[2019-04-11] MEDS ORDERED: GLUCAGON 1 MG/VIAL IM PRN (23:50)
[2019-04-12] MEDS ORDERED: HEPARIN 5000 UNIT/ML 1 ML VIAL SQ SCH (02:00)
--- NOTE | 2019-04-12 03:36 | CON ---
Date of Consultation: 04/11/2019 Chief Complaint: End-stage renal disease, on dialysis. History Of Present Illness: Patient presented to dialysis today, although she was complaining of lef t-sided extremity weakness and numbness. Patient was found to have elevated blood pressure. EMS was called, so patient was transferred to emergency room. Dialysis was not done because patient was com plaining of new onset left-sided weakness. Currently, she developed some numbness in the upper and l ower extremity yesterday and today, she developed weakness in the upper extremity with some difficult y with ambulation. She denies history of falls. She has multiple medical problems including severe vision impairment; diabetic retinopathy; end-stage renal disease, on dialysis. Review of Systems: Constitutional: Denies fever or chills. Eyes: She has severe vision impairment. She is legally blind. She has diabetic retinopathy. Ears, Nose, Mouth, and Throat: Denies sore throat or earache. Respiratory: Denies PND or orthopnea. Cardiovascular: Denies chest pain, palpitation, and syncope. GI: Denies nausea or vomiting. : Denies dysuria or hematuria. Musculoskeletal: Denies muscle spasm, although she has had weakness of the left leg since yesterday morning and left arm numbness and weakness started today. All other systems reviewed and all are negative. Past Medical History: Diabetes mellitus, hypertension, anemia, CKD, renal osteodystrophy, GERD, hype rlipidemia, thyroid cancer, TIA, and peripheral neuropathy. Social History: Denies tobacco, alcohol, or illicit drugs. Family History: Denies kidney disease in the family. Physical Examination: General: Patient is awake, alert, follows commands. Eyes: Anicteric sclerae. EOMI. Ears, Nose, Mouth and Throat: Oral mucosa moist. No pallor. Neck: Supple. No bruits. Lungs: Clear to auscultation bilaterally. No rhonchi. No wheezing. Heart: S1, S2. No pericardial friction rub. Abdomen: Soft, benign, nontender. Extremities: Swelling in both legs. Neurological: Weakness in upper and lower extremities, left-sided. Vital Signs: Blood pressure is 167/74, heart rate 79, respiratory rate 18, SpO2 of 100% on room air. Laboratory Data: Hemoglobin 10.9, WBC 10.0, platelet count is 306,000. Chemistries show sodium 134, potassium 5.3, chloride 100, CO2 of 24, BUN 45, creatinine 5.72, glucose 489, magnesium 2.1, calcium 8.3, albumin 2.2. Impression And Plan: 1.Hyperkalemia, mild. Patient received Kayexalate. Re-evaluate potassium level. 2.Diabetes mellitus, uncontrolled, insulin started. 3.Hypertension. Blood pressure medications were started. Blood pressure is gradually improving. 4.Stroke. Neurological consultation obtained. 5.Fluid overload. Patient will have dialysis tomorrow. Currently, she is undergoing evaluation for stroke. TAMIKA/MODBladimir Voice ID: [id number] Report ID: [id number]
--- NOTE | 2019-04-12 04:15 | HP ---
Date of Admission: 04/11/2019 Chief Complaint: Numbness on the left side. Consultants: 1.Dr. Alex, Neurology. 2.Dr. Beckman with Nephrology. History Of Present Illness: Patient is a 43-year-old female with past medical history of end-stage r enal disease on dialysis, diabetes insulin requiring, legally blind, hypertension, history of previou s CVA, who was in her usual state of health and was at the dialysis center this morning and felt weak . Patient was examined by Dr. Boothe, who was at the facility. At the time, she was recommended to go directly to the ER for weakness and numbness on her left side. Patient states that she has been hav ing these symptoms since yesterday. She was unable to get dialyzed today. Her symptoms were constan t, moderate, progressively worsening. In the ER, patient's workup revealed glucose level of 489, cre atinine was 5.72, potassium was 5.3. MRI was done, which was positive for acute nonhemorrhagic CVA. Dr. Brenner consulted Dr. Alex from the ER. He agreed to consult on the patient and patient wa s referred for admission. Past Medical History: Diabetes mellitus type 2, history of CVA, end-stage renal disease on hemodialy sis, legally blind due to diabetic retinopathy, hypertension, depression with anxiety, history of thy roid cancer, hyperlipidemia, GERD. Past Surgical History: Cholecystectomy, thyroidectomy, multiple eye surgery, . Social History: Patient is , has a daughter. She is disabled. Lives with [id number] wit h her care provider. Patient smokes daily. Denies alcohol use or illicit drug use. Family History: Father had heart disease, hypertension, and thyroid problems. Mother had diabetes a nd kidney disease. Review of Systems: Ten-point system reviewed, negative except as per HPI. Physical Examination: Vital Signs: BP 167/74, pulse 79, respirations 18, temperature 98.1, O2 100% on room air. General: Awake, alert, oriented x3, in some mild distress. HEENT: Normocephalic, atraumatic. Patient has no pupillary response due to patient is blind. Oroph arynx is clear. Conjunctivae anicteric. Neck: Supple. No JVD. Trachea midline. CV: S1, S2. Regular rate and rhythm. Peripheral pulses present. Respiratory: Somewhat diminished breath sounds overall. No wheezing or stridor. No use of accessor y muscles. Gastrointestinal: Abdomen is soft, nontender, nondistended. Positive bowel sounds. No guarding or rigidity. Extremities: No clubbing, cyanosis, or edema. No calf tenderness. Neurologic: Cranial nerves 3 through 12 intact grossly. Patient has weakness on the left side, 4/5, upper and lower extremity. Sensation decreased to light touch on the left side. Speech is normal. No facial asymmetry. Skin: No rashes. Normal skin turgor. Patient has HemoSplit catheter in the anterior right chest. Psychiatric: Mood is anxious. Affect is congruent with mood. Insight and judgment are fair. Laboratory Data: WBC 10, H and H 10.9 and 33, platelets 306, neutrophils 79%. INR 0.89. Sodium 134 , potassium 5.3, chloride 100, CO2 of 24, BUN 45, creatinine 5.72, glucose 489, calcium 8.3, magnesiu m 2.1. Troponin less than 0.02. BNP 3818. Imaging Studies: MRI of the brain shows punctate, nonhemorrhagic acute CVA changes in the medial rig ht temporal lobe, T2 white matter signal abnormalities are present in the cerebral white matter in ea ch thalamus and to a lesser degree in the brainstem. These are stable findings. These could be from prior ischemic insults or demyelinization. Chest x-ray shows no acute cardiopulmonary process, no s uspicious interval change. Assessment And Plan: A 43-year-old female with: 1.Acute cerebrovascular accident, right medial temporal lobe. We will continue with stroke guidelin es, aspirin and statin, Lovenox for deep venous thrombosis prophylaxis. Dr. Alex with Neurology has been consulted by the ER. We will obtain echocardiogram and carotid artery ultrasound. 2.End-stage renal disease, on hemodialysis. We will consult Nephrology and continue dialysis as [facility]. Patient did not receive her dialysis session this morning due to her acute symptoms. 3.Hyperkalemia secondary to above. 4.Diabetes mellitus type 2, insulin requiring with hyperglycemia and end-stage renal disease, on hem odialysis, not well controlled. Blood sugar is 489. We will start on sliding scale insulin and resu me home dose. Monitor blood glucose levels. 5.Essential hypertension. 6.Anemia of chronic disease. We will monitor H and H. 7.Generalized anxiety disorder, stable. 8.Major depressive disorder. 9.History of thyroid cancer. 10.Mixed hyperlipidemia. We will continue statin. 11.Gastroesophageal reflux disease without esophagitis, stable. 12.Previous history of cerebrovascular accident. 13.Legal blindness due to diabetic retinopathy. 14.Nicotine dependence with cigarette smoking, counseled. Plan: Admit the patient to Med-Surg, place as inpatient. Length of stay greater than 2 midnights. DAVIDA Voice ID: [id number]
[2019-04-12 06:42] LABS: Urine Appearance CLOUDY; Urine Bilirubin NEGATIVE (NEG); Urine Blood 1+ (NEG); Urine Color YELLOW; Urine Glucose 2+ (NEG); Urine Protein 3+ (NEG); Urine Specific Gravity 1.015 (1.005-1.030); Urine Urobilinogen 0.2 mg/dL (0.2-1.0); Urine pH 7.5 (5.0-7.0)
[2019-04-12 06:47] LABS: Urine Microscopic Reflex ORDER UMIC
[2019-04-12 06:57] LABS: Urine Bacteria >50 /HPF (<20); Urine Culture Reflex Order NOT NEEDED; Urine RBC <5 /HPF (NONE SEEN)
[2019-04-12 06:57] LABS: Absolute Lymphocytes (CBC) 2.9 K/uL (0.7-4.9); Basophils % 1.3 % (0-1.3); Hematocrit 28.7 % (36.0-45.0); Lymphocytes % 21.9 % (15.3-44.8); MPV 9.2 fL (7.6-11.3); RBC Red Blood Cell Count 3.06 M/uL (3.86-4.86)
[2019-04-12 07:16] LABS: Albumin 2.2 g/dL (3.4-5.0); Bilirubin Total 0.4 mg/dL (0.2-1.0); Phosphorus 6.8 mg/dL (2.5-4.9); Potassium 4.4 mmol/L (3.5-5.1); Protein, Total 6.9 g/dL (6.4-8.2)
[2019-04-12] MEDS: INSULIN -REGULAR HUMAN 50 UNIT/0.5 ML ML SQ SCH ×4 (07:30→21:00)
[2019-04-12] MEDS: ASPIRIN EC 81 MG TAB PO SCH (09:00)
[2019-04-12] MEDS ORDERED: ENOXAPARIN 30 MG/0.3 ML SQ SCH (09:00)
--- NOTE | 2019-04-12 09:20 | RAD REPORT ---
EXAM DESCRIPTION: US - CP - 04/12/2019 8:26 am CLINICAL HISTORY: CVA COMPARISON: None. TECHNIQUE: Real-time sonographic evaluation of both carotid systems was performed. Coffman scale and Do ppler interrogation were performed with waveform tracing bilaterally. FINDINGS: Normal high resistance waveforms are noted in both external carotid arteries. The common c arotid arteries and internal carotid arteries show normal low resistance waveforms. Mild plaquing changes are present in the left carotid bulb without significant luminal narrowing. No other significant plaquing changes noted. No dissection or suspicious luminal narrowing. Peak systoli c and end diastolic velocity values and the ICA/CCA ratios are in the non-hemodynamically significant range. Antegrade flow seen in both vertebral arteries. Velocity values and ratios were recorded and are retained in the patient's imaging records. During the examination, it was observed the patient has a large amount of thrombus filling nearly all of the right internal jugular vein in the lower neck. Thrombus is superior to a dialysis catheter th at is in place. IMPRESSION: Minimal atherosclerotic changes. No hemodynamically significant stenosis. Right internal jugular vein thrombus filling nearly all of the lumen. This is in the lower right neck superior to the indwelling dialysis catheter
[2019-04-12] MEDS: TRAMADOL HCL 50 MG TAB PO PRN (11:51)
[2019-04-12] MEDS: HYDRALAZINE HCL 25 MG TABLET PO SCH ×2 (13:59→21:00)
[2019-04-12] MEDS: LISINOPRIL 10 MG TAB PO SCH ×2 (14:00→16:41)
[2019-04-12] MEDS: FUROSEMIDE 40 MG TABLET PO SCH (16:41)
[2019-04-12] MEDS ORDERED: ENOXAPARIN 40 MG/0.4 ML SQ SCH (17:00)
--- NOTE | 2019-04-12 17:07 | P.DS ---
Admission Date: 04/11/19 Discharge Date: 04/12/19 Disposition: TRANSFER TO [facility] Discharge Condition: FAIR Reason for Admission: Facial numbness/acute CVA Consultations: Nephrology Neurology Brief History of Present Illness: Patient is a 43-year-old female with past medical history of end-stage renal disease on dialysis, diabetes insulin requiring, legally blind, hypertension, history of previous CVA, who was in her usual state of health and was at the dialysis center this morning and felt weak. Patient was examined by Dr. Boothe, who was at the facility. At the time, she was recommended to go directly to the ER for weakness and numbness on her left side. Patient states that she has been having these symptoms since yesterday. She was unable to get dialyzed today. Her symptoms were constant, moderate, progressively worsening. In the ER, patient's workup revealed glucose level of 489, creatinine was 5.72, potassium was 5.3. MRI was done, which was positive for acute nonhemorrhagic CVA. Dr. Brenner consulted Dr. Alex from the ER. He agreed to consult on the patient and patient was referred for admission Hospital Course: Patient was admitted for acute cerebrovascular accident, right medial temporal lobe. MRI of the brain shows punctate nonhemorrhagic acute CV changes in the medial right temporal lobe. She was started on stroke guidelines with aspirin statin along with Lovenox for DVT prophylaxis. Neurology was consulted from the ER. An echocardiogram and a carotid artery ultrasound was ordered. On further workup, the carotid artery ultrasound showed a thrombus in the right jugular vein, superior to her dialysis catheter. Nephrology was consulted for dialysis but dialysis had to be put on hold due to the thrombus above the catheter. Her labs continued to remain stable. She remained hemodynamically stable otherwise. Transfer was initiated to high-level care for vascular surgery evaluation/ management. She was transferred in a safe and stable manner was accepted. Vital Signs/Physical Exam: Temp Pulse Resp BP Pulse Ox 98.2 F 78 18 133/66 98 04/12/19 12:00 04/12/19 12:00 04/12/19 12:49 04/12/19 12:00 04/12/19 12:49 General: Alert, In no apparent distress, Oriented x3 HEENT: Atraumatic, PERRLA, EOMI Neck: Supple, JVD not distended Respiratory: Clear to auscultation bilaterally, Normal air movement Cardiovascular: Regular rate/rhythm, Normal S1 S2 Gastrointestinal: Normal bowel sounds, No tenderness Musculoskeletal: No tenderness Integumentary: No rashes Neurological: Normal speech, Cranial nerves 3-12 intact, Other (Patient has weakness on the left side, 4/5, upper and lower extremity. Sensation decreased to light touch on the left side. Speech is normal. No facial asymmetry. ), Abnormal sensation Lymphatics: No axilla or inguinal lymphadenopathy Laboratory Data at Discharge: WBC 13.4 K/uL (4.3-10.9) H D 04/12/19 06:35 Hgb 9.3 g/dL (12.0-15.0) L 04/12/19 06:35 Hct 28.7 % (36.0-45.0) L 04/12/19 06:35 Plt Count 348 K/uL (152-406) 04/12/19 06:35 PT 10.6 SECONDS (9.5-12.5) 04/11/19 14:37 INR 0.89 04/11/19 14:37 Sodium 137 mmol/L (136-145) 04/12/19 06:35 Potassium 4.4 mmol/L (3.5-5.1) 04/12/19 06:35 BUN 44 mg/dL (7-18) H 04/12/19 06:35 Creatinine 5.99 mg/dL (0.55-1.3) H* 04/12/19 06:35 Glucose 165 mg/dL (74-106) H 04/12/19 06:35 Phosphorus 6.8 mg/dL (2.5-4.9) H 04/12/19 06:35 Magnesium 2.0 mg/dL (1.8-2.4) 04/12/19 06:35 Total Bilirubin 0.4 mg/dL (0.2-1.0) 04/12/19 06:35 AST 12 U/L (15-37) L 04/12/19 06:35 ALT 16 U/L (12-78) 04/12/19 06:35 Alkaline Phosphatase 146 U/L (45-117) H 04/12/19 06:35 Triglycerides 105 mg/dL (<150) 04/12/19 06:35 Cholesterol 214 mg/dL (<200) H 04/12/19 06:35 HDL Cholesterol 67 mg/dL (40-60) H 04/12/19 06:35 Cholesterol/HDL Ratio 3.19 04/12/19 06:35 Home Medications: Furosemide [Lasix] 80 mg PO BIDL 04/12/19 Hydralazine [Apresoline] 25 mg PO Q6H PRN 04/12/19 Time spent managing pt's care (in minutes): 55
--- NOTE | 2019-04-12 18:53 | PN ---
Date of Progress Note: 04/12/2019 Subjective: Patient was admitted for left-sided numbness. Physical Examination: Vital Signs: Blood pressure 177/86, pulse of 82. Chest: Clear to auscultation. Heart: S1, S2. Systolic murmur. Abdomen: Soft, nontender. Extremities: No edema. Laboratory Data: H and H 05/14.7. Sodium 137, potassium 4.4, bicarb 23, BUN 44, creatinine 5.9, GFR of 8, calcium 8.8. Vitamin D 25-OH of 12. Doppler showed DVT right IJ on the site of the catheter. Current Medications: The patient on its include: 1.Aspirin. 2.Heparin. 3.Atorvastatin. 4.Zofran. Assessment And Plan: 1.End-stage renal disease. We will arrange for the patient for the dialysis given the internal jugu lar thrombosis. I am going to go ahead and arrange for the dialysis on the patient transfer. 2.Internal jugular thrombosis, on hemodialysis catheter. We will start the patient on Lovenox, disc ontinue heparin. Patient is going to need catheter exchange. Patient pending transfer to [facility], waiting for Vascular accepting. 3.Hypertension, not controlled. I am going to go ahead and resume the patient's home medication. 4.Deep venous thrombosis as above internal jugular. 5.Left-sided numbness, cerebrovascular accident has been ruled out. DEBBIE Voice ID: [id number] Report ID: [id number]
[2019-04-12] MEDS: ATORVASTATIN 20 MG TAB PO SCH (21:26)
[2019-04-12 23:27] LABS: RPR (Rapid Plasma Reagin) NON-REACT (NON-REACT)
[2019-04-13] MEDS ORDERED: HEPARIN 5000 UNIT/ML 1 ML VIAL SQ SCH (00:04)
[2019-04-13 06:05] LABS: Albumin 1.9 g/dL (3.4-5.0); Phosphorus 7.7 mg/dL (2.5-4.9); Potassium 4.6 mmol/L (3.5-5.1)
[2019-04-13] MEDS: INSULIN -REGULAR HUMAN 50 UNIT/0.5 ML ML SQ SCH ×4 (07:30→21:00)
[2019-04-13] MEDS: FUROSEMIDE 40 MG TABLET PO SCH ×2 (08:35→17:00)
[2019-04-13] MEDS: ASPIRIN EC 81 MG TAB PO SCH (08:35)
[2019-04-13] MEDS: LISINOPRIL 10 MG TAB PO SCH (08:36)
[2019-04-13] MEDS: HYDRALAZINE HCL 25 MG TABLET PO SCH ×2 (08:36→21:00)
--- NOTE | 2019-04-13 08:57 | ECHO ---
HEIGHT: 5 ft 3 in WEIGHT: 150 lb 8 oz DATE OF STUDY: 04/12/[address]: Yvette Sims MD 2-DIMENSIONAL: YES M.MODE: YES DOPPLER: YES COLOR FLOW: YES TDS: YES PORTABLE: NO DEFINITY: NO BUBBLE STUDY: NO DIAGNOSIS: STROKE CARDIAC HISTORY: CATHERIZATION: NO SURGERY: NO PROSTHETIC VALVE: NO PACEMAKER: NO MEASUREMENTS (cm) DIASTOLIC (NORMALS) SYSTOLIC (NORMALS) IVSd 1.0 (0.6-1.2) LA Diam (1.9-4.0) LVEF 67% LVIDd 3.3 (3.5-5.7) LVIDs 2.1 (2.0-3.5) %FS 36% LVPWd 3.3 (0.6-1.2) Ao Diam 1.1 (2.0-3.7) 2 DIMENSIONAL ASSESSMENT: RIGHT ATRIUM: NORMAL LEFT ATRIUM: NORMAL RIGHT VENTRICLE: NORMAL LEFT VENTRICLE: NORMAL TRICUSPID VALVE: NORMAL MITRAL VALVE: NORMAL PULMONIC VALVE: NORMAL AORTIC VALVE: SCLEROSIS PERICARDIAL EFFUSION: NONE AORTIC ROOT: NORMAL LEFT VENTRICULAR WALL MOTION: NORMAL. DOPPLER/COLOR FLOW: MILD TRICUSPID REGURGITATION. COMMENTS: TECHNICALLY DIFFICULT STUDY. NORMAL LEFT VENTRICULAR SIZE AND FUNCTION. AORTIC SCLEROSIS WITH NO STENOSIS. TECHNOLOGIST: JENNIFER SINGER
[2019-04-13] MEDS ORDERED: ENOXAPARIN 80 MG/0.8 ML SQ SCH (09:00)
--- NOTE | 2019-04-13 11:52 | P.PN ---
Subjective Date of Service: 04/13/19 Chief Complaint: Facial numbness/acute CVA Subjective: No C/O voiced, Improving Patient seen and examined at bedside. Chart reviewed and case discussed with Dr. Beckman. No acute events noted overnight. No complaints this am. Review of Systems 10-point ROS is otherwise unremarkable Physical Examination - Vital Signs Temperature: 97.6 F Blood Pressure: 156/67 Pulse: 75 Respirations: 20 Pulse Ox (%): 97 - Physical Exam General: Alert, In no apparent distress HEENT: Atraumatic, PERRLA, EOMI Neck: Supple, JVD not distended Respiratory: Clear to auscultation bilaterally, Normal air movement Cardiovascular: Regular rate/rhythm, Normal S1 S2 Gastrointestinal: Normal bowel sounds, No tenderness Musculoskeletal: No tenderness Integumentary: No rashes Neurological: Normal speech, Normal tone, Normal affect Lymphatics: No axilla or inguinal lymphadenopathy Assessment And Plan - Plan A 43-year-old female with: Acute cerebrovascular accident, right medial temporal lobe. -We will continue with stroke guidelines, aspirin and statin, Lovenox for deep venous thrombosis prophylaxis. -Dr. Alex with Neurology has been consulted by the ER. -echocardiogram -carotid artery ultrasound with right IJ thrombus, superior to dialysis cathether. Right IJ thrombus, acute - She will need catheter replacement but will need vascular involvement. Attempted to transfer patient to 5-6 different hospitals but was unsuccessful. - Case discussed with Nephrology. Attempt dialysis session in hospital today. Outpatient dialysis catheter exchange to be set up by nephrology. End-stage renal disease, on hemodialysis. Consulted Nephrology and continue dialysis as scheduled. Hyperkalemia Resolved secondary to above. Diabetes mellitus type 2, insulin requiring with hyperglycemia and end-stage renal disease, on hemodialysis, not well controlled. We will continue on sliding scale insulin and resume home dose. Monitor blood glucose levels. Essential hypertension. Anemia of chronic disease. We will monitor H and H. Generalized anxiety disorder, stable. Major depressive disorder. History of thyroid cancer. Mixed hyperlipidemia. We will continue statin. Gastroesophageal reflux disease without esophagitis, stable. Previous history of cerebrovascular accident. Legal blindness due to diabetic retinopathy. Nicotine dependence with cigarette smoking, counseled. Plan: Dialysis session today; outpatient catheter exchange set up by nephrology. Anticipate discharge home in the next 24 hrs after dialysis.
--- NOTE | 2019-04-13 13:16 | PN ---
Date of Progress Note: 04/13/2019 Subjective: Patient was admitted with right-sided numbness. Physical Examination: Vital Signs: Blood pressure 156/67, pulse of 75. Chest: Faint crackles on the base. Heart: S1, S2. Regular. Abdomen: Soft, nontender. Extremities: No edema. Laboratory Data: H and H 9.3/28.7. Sodium 139, potassium 4.6, bicarb 24, BUN 51, creatinine 6.9, ca lcium 8.3, phosphorus 7.7, albumin 1.9. Medications: Current medications the patient on, its include; 1.Aspirin. 2.Lovenox. 3.Lasix. 4.Hydralazine 25 b.i.d. 5.Atorvastatin. 6.Lisinopril. 7.Zofran. 8.Tramadol. Assessment And Plan: 1.End-stage renal disease, clotted internal jugular secondary to PermCath. [facility] in [place] re fused transfer. I am going to go ahead and do dialysis today. We will arrange for outpatient cathet er exchange, adjust her Lovenox, and we will monitor. 2.Hypertension, just started on lisinopril. We will follow up. 3.Deep venous thrombosis secondary to nephrotic range proteinuria/irritation from local PermCath. P rich had workup before. Her serology was negative for any suspicious for hypercoagulopathy. I am going to go ahead and send for cardiolipin. We will follow up protein C and S and we will monitor. 4.Diabetes, as by primary. CASSIE/KERI Voice ID: [id number] Report ID: [id number]
[2019-04-13] MEDS ORDERED: ENOXAPARIN 80 MG/0.8 ML SQ ONE (16:00)
[2019-04-13] MEDS ORDERED: VANCOMYCIN 0.75 GM in NA CHLORIDE 0.9% 500 ML IVPB ONE (20:00)
[2019-04-13] MEDS: ATORVASTATIN 20 MG TAB PO SCH (21:57)
[2019-04-13] MEDS ORDERED: VANCOMYCIN 1 GM/VIAL ONE (22:00)
[2019-04-13] MEDS ORDERED: NA CHLORIDE 0.9% 500 ML ONE (22:04)
[2019-04-13 23:04] VITALS: O2SAT 98
[2019-04-14 05:42] VITALS: BMI 24.1
[2019-04-14 05:46] LABS: Albumin 1.8 g/dL (3.4-5.0); Phosphorus 4.9 mg/dL (2.5-4.9)
[2019-04-14] MEDS: ASPIRIN EC 81 MG TAB PO SCH (08:33)
[2019-04-14] MEDS: LISINOPRIL 10 MG TAB PO SCH (08:34)
[2019-04-14] MEDS: FUROSEMIDE 40 MG TABLET PO SCH (08:35)
[2019-04-14] MEDS: HYDRALAZINE HCL 25 MG TABLET PO SCH (08:35)
[2019-04-14] MEDS: INSULIN -REGULAR HUMAN 50 UNIT/0.5 ML ML SQ SCH ×2 (08:36→11:27)
[2019-04-14] MEDS ORDERED: ENOXAPARIN 40 MG/0.4 ML SQ SCH (09:00)
[2019-04-14] MEDS: TRAMADOL HCL 50 MG TAB PO PRN (10:24)
[2019-04-14 14:26] VITALS: BP 97/55; TEMP 98.4
[2019-04-14 14:29] LABS: HBsAG Nonreactive (Nonreactive)
--- NOTE | 2019-04-14 17:18 | P.PN ---
Subjective Date of Service: 04/14/19 Chief Complaint: Facial numbness/acute CVA Subjective: Improving Patient seen and examined at bedside. Chart reviewed and case discussed with Dr. Beckman. No acute events noted overnight. No complaints this am. Review of Systems 10-point ROS is otherwise unremarkable Physical Examination - Vital Signs Temperature: 98.4 F Blood Pressure: 97/55 Pulse: 74 Respirations: 20 Pulse Ox (%): 100 - Physical Exam General: Alert, In no apparent distress, Oriented x3 HEENT: Atraumatic, PERRLA, Other (legally blind), EOMI Neck: Supple, JVD not distended Respiratory: Clear to auscultation bilaterally, Normal air movement Cardiovascular: Regular rate/rhythm, Normal S1 S2 Gastrointestinal: Normal bowel sounds, No tenderness Musculoskeletal: No tenderness Integumentary: No rashes Neurological: Normal speech, Normal tone, Normal affect Lymphatics: No axilla or inguinal lymphadenopathy Assessment And Plan - Plan A 43-year-old female with: Acute cerebrovascular accident, right medial temporal lobe. -We will continue with stroke guidelines, aspirin and statin, Lovenox for deep venous thrombosis prophylaxis. -Dr. Alex with Neurology has been consulted by the ER. -echocardiogram -carotid artery ultrasound with right IJ thrombus, superior to dialysis cathether. Right IJ thrombus, acute - She will need catheter replacement but will need vascular involvement. Attempted to transfer patient to 5-6 different hospitals but was unsuccessful. - Case discussed with Nephrology. Outpatient dialysis catheter exchange set up by nephrology for 04/15/2019. Information has been provided to patient. End-stage renal disease, on hemodialysis. Consulted Nephrology and continue dialysis as scheduled. Hyperkalemia Resolved secondary to above. Diabetes mellitus type 2, insulin requiring with hyperglycemia and end-stage renal disease, on hemodialysis, not well controlled. We will continue on sliding scale insulin and resume home dose. Monitor blood glucose levels. Essential hypertension. Anemia of chronic disease. We will monitor H and H. Generalized anxiety disorder, stable. Major depressive disorder. History of thyroid cancer. Mixed hyperlipidemia. We will continue statin. Gastroesophageal reflux disease without esophagitis, stable. Previous history of cerebrovascular accident. Legal blindness due to diabetic retinopathy. Nicotine dependence with cigarette smoking, counseled. Plan: outpatient catheter exchange set up by nephrology. Discharge home today
--- NOTE | 2019-04-14 19:59 | PN ---
Date of Progress Note: 04/14/2019 The patient was admitted with TIA, found to have right IJ thrombosis. Physical Examination: Vital Signs: Blood pressure 120/58, pulse of 70. Chest: Clear to auscultation. Heart: S1, S2. Regular. Abdomen: Soft, nontender. Extremities: No edema. Laboratory Data: H and H 9.3/28.7. Sodium 141, potassium 4, bicarb 28, BUN 25, creatinine 4, calciu m 7.7, phos 4.9, albumin 1.8. Current Medications: The patient on include: 1.Aspirin. 2.Vancomycin 750. 3.Lovenox 40 daily. 4.Atorvastatin. 5.Hydralazine. 6.Lisinopril 10 daily. 7.Lasix 40 b.i.d. 8.Tramadol. Assessment And Plan: 1.End-stage renal disease, stable. Continue dialysis Thursday, Thursday, Thursday. 2.Deep vein thrombosis secondary to right internal jugular PermCath. Plan to exchange the PermCath tomorrow, set up as outpatient on [facility], then the patient is going to get di alyzed tomorrow as outpatient. 3.Hypertension, controlled, optimal response to current medication. I am going to decrease the hydr alazine to once a day. 4.Diabetes as by primary. 5.Transient ischemic attack. Follow up Neurology. The patient cleared from the renal standpoint fo r discharge planning. I have discussion with the patient. The patient verbalized her understanding in the presence of the mother. DEBBIE Voice ID: [id number] Report ID: [id number]
[2019-04-15] MEDS ORDERED: HYDRALAZINE HCL 25 MG TABLET PO SCH (09:00)
[2019-04-15 11:00] LABS: Protein C Antigen 103 % (70-140)
[2019-04-16 10:34] LABS: Prothrombin Gene Analysis Test REPORT
[2019-04-17 04:11] LABS: Albumin, (SPE) 2.7 g/dL (3.8-4.8); Alpha-1-Globulins 0.3 g/dL (0.2-0.3); Gamma Globulins 1.1 g/dL (0.8-1.7); INTERPRETATION REPORT
== END 2019-04-14 15:06 | disposition home health service (06) | DRG 64 ==
LOC: ER 14:29 → ERHOLD 18:19 → 2ND 20:01
PROVIDERS: ADMIT Family Medicine; ATTEND Family Medicine
PROC: 5A1D70Z Performance of Urinary Filtration, Intermittent, Less than 6 Hours Per Day (ICD-10-PCS; principal; 2019-04-13)
DX: I63.9 Cerebral infarction, unspecified (principal); N18.6 End stage renal disease; I12.0 Hypertensive chronic kidney disease with stage 5 chronic kidney disease or end stage renal disease; I82.C11 Acute embolism and thrombosis of right internal jugular vein; E11.22 Type 2 diabetes mellitus with diabetic chronic kidney disease; E11.65 Type 2 diabetes mellitus with hyperglycemia; E87.5 Hyperkalemia; D63.1 Anemia in chronic kidney disease; Z85.850 Personal history of malignant neoplasm of thyroid; F32.9 Major depressive disorder, single episode, unspecified; Z86.73 Personal history of transient ischemic attack (TIA), and cerebral infarction without residual deficits; F17.210 Nicotine dependence, cigarettes, uncomplicated; H54.8 Legal blindness, as defined in USA; E11.319 Type 2 diabetes mellitus with unspecified diabetic retinopathy without macular edema; Z99.2 Dependence on renal dialysis; E87.70 Fluid overload, unspecified
CPT/HCPCS: 36415; 70551; 71045; 80048; 80053; 80061; 80069; 80076; 81003; 81015; 81240; 81241; 82306; 82607; 82746; 82947; 82962; 83090; 83735; 83880; 84100; 84165; 84484; 85025; 85300; 85302; 85305; 85306; 85610; 86021; 86147; 86592; 86704; 86706; 86803; 87040; 87340; 90935; 92610; 93005; 93306; 93880; 94760; 96372; 96374; 96375; 97110; 97112; 97116; 97161; 97530; 99285; J1644; J1650; J2405; J7030

== ENCOUNTER 2019-06-01 17:22 | Emergency (ER) | payer OTHER ==
--- NOTE | 2019-06-01 18:40 | EDPHYS ---
Physician Documentation [facility] Name: Archana Woo Age: 43 yrs Sex: Female : 1975 Arrival Date: 06/01/2019 Time: 17:25 Bed 28 Private MD: ED Physician Griffin Cook HPI: 06/01 17:57 This 43 yrs old Female presents to ER via Wheelchair with complaints of High snw Blood Pressure, High heart rate. 17:57 The patient has elevated blood pressure and discovered this pt was at dialysis, snw completed (3 hours), no c/o. Pt states she just wanted to go home. Pt sent to ED per dialysis personnel second to hypertension and tachycardia. Onset: The symptoms/episode began/occurred just prior to arrival. Associated signs and symptoms: The patient has no apparent associated signs or symptoms. Severity of symptoms: At its worst the blood pressure was moderate. It is unknown whether or not the patient has had similar symptoms in the past. It is unknown whether or not the patient has recently seen a physician. pt states she did not take her insulin today and didn't eat. Agrees to po challenge, FSBS and sliding scale insulin prn. 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 - Social history:: Smoking status: Patient uses tobacco products, denies chronic smoking, but will smoke occasionally. - Ebola Screening: : Patient denies travel to an Ebola-affected area in the 21 days before illness onset. ROS: 17:57 Constitutional: Negative for fever, chills, and weight loss, Eyes: Negative for injury, snw pain, redness, and discharge, ENT: Negative for injury, pain, and discharge, Neck: Negative for injury, pain, and swelling, Respiratory: Negative for shortness of breath, cough, wheezing, and pleuritic chest pain, Abdomen/GI: Negative for abdominal pain, nausea, vomiting, diarrhea, and constipation, Back: Negative for injury and pain, : Negative for injury, bleeding, discharge, and swelling, MS/Extremity: Negative for injury and deformity, Skin: Negative for injury, rash, and discoloration, Neuro: Negative for headache, weakness, numbness, tingling, and seizure. 17:57 Cardiovascular: Positive for sent from dialysis second to HR of 120's. Exam: 17:56 Constitutional: This is a well developed, well nourished patient who is awake, alert, snw and in no acute distress. Head/Face: Normocephalic, atraumatic. Eyes: Pupils equal round and reactive to light, extra-ocular motions intact. Lids and lashes normal. Conjunctiva and sclera are non-icteric and not injected. Cornea within normal limits. Periorbital areas with no swelling, redness, or edema. ENT: Nares patent. No nasal discharge, no septal abnormalities noted. Tympanic membranes are normal and external auditory canals are clear. Oropharynx with no redness, swelling, or masses, exudates, or evidence of obstruction, uvula midline. Mucous membranes moist. Neck: Trachea midline, no thyromegaly or masses palpated, and no cervical lymphadenopathy. Supple, full range of motion without nuchal rigidity, or vertebral point tenderness. No Meningismus. Chest/axilla: Normal chest wall appearance and motion. Nontender with no deformity. No lesions are appreciated. Cardiovascular: Regular rate and rhythm with a normal S1 and S2. No gallops, murmurs, or rubs. Normal PMI, no JVD. No pulse deficits. Respiratory: Lungs have equal breath sounds bilaterally, clear to auscultation and percussion. No rales, rhonchi or wheezes noted. No increased work of breathing, no retractions or nasal flaring. Abdomen/GI: Soft, non-tender, with normal bowel sounds. No distension or tympany. No guarding or rebound. No evidence of tenderness throughout. Back: No spinal tenderness. No costovertebral tenderness. Full range of motion. MS/ Extremity: Pulses equal, no cyanosis. Neurovascular intact. Full, normal range of motion. Neuro: Awake and alert, GCS 15, oriented to person, place, time, and situation. Cranial nerves II-XII grossly intact. Motor strength 5/5 in all extremities. Sensory grossly intact. Cerebellar exam normal. Normal gait. Psych: Awake, alert, with orientation to person, place and time. Behavior, mood, and affect are within normal limits. 17:56 Skin: Appearance: Color: normal in color, Temperature: warm, cool, Moisture: dry. Vital Signs: 17:47 BP 159 / 87; Pulse 98; Resp 20; Temp 97.8; Pulse Ox 100% on R/A; Weight 54.43 kg (R); aj1 Height 5 ft. 4 in. (162.56 cm) (R); Pain 0/10; 18:16 BP 149 / 75; Pulse 87; Resp 13; Pulse Ox 100% on R/A; aj1 19:10 BP 152 / 76; Pulse 88; Resp 20; Pulse Ox 97% on R/A; aj1 17:47 Body Mass Index 20.60 (54.43 kg, 162.56 cm) aj1 MDM: 17:36 Patient medically screened. snw 18:41 Data reviewed: vital signs, nurses notes. Data interpreted: Pulse oximetry: on room air snw is 100 %. Interpretation: normal. Counseling: I had a detailed discussion with the patient and/or guardian regarding: the historical points, exam findings, and any diagnostic results supporting the discharge/admit diagnosis, lab results, the need for outpatient follow up, to return to the emergency department if symptoms worsen or persist or if there are any questions or concerns that arise at home. Special discussion: I have referred the patient to see his PCP for further evaluation of high blood pressure. Based on the history and exam findings, there is no indication for further emergent testing or inpatient evaluation. I discussed with the patient/guardian the need to see the primary care provider for further evaluation of the symptoms. 06/01 17:52 Order name: EKG; Complete Time: 17:53 snw 06/01 17:52 Order name: PO challenge; Complete Time: 18:27 snw 06/01 17:52 Order name: FSBS; Complete Time: 18:16 snw 06/01 17:52 Order name: EKG - Nurse/Tech; Complete Time: 18:27 snw Administered Medications: 18:47 Drug: Insulin Regular Human 4 units {Co-Signature: ca1 (Yulia Sevilla RN).} Route: Sub-Q; aj1 Site: left lower abdomen; 19:16 Follow up: Response: No adverse reaction aj1 Point of Care Testing: Blood Glucose: 18:16 Blood Glucose: 225 mg/dL; aj1 Ranges: Critical Glucose Levels:Adult <50 mg/dl or >400 mg/dl <40 mg/dl or >180 mg/dl Disposition: 06/01/19 18:39 Discharged to Home. Impression: Hyperglycemia, unspecified, Encounter for screening, unspecified - post dialysis. - Condition is Stable. - Discharge Instructions: Hyperglycemia, Palpitations, Blood Glucose Monitoring, Adult. - Prescriptions for promethazine 25 mg Oral Tablet - take 1 tablet by ORAL route every 6 hours As needed; 20 tablet. - Medication Reconciliation Form, Thank You Letter, Antibiotic Education, Prescription Opioid Use form. - Follow up: Private Physician; When: 2 - 3 days; Reason: Recheck today's complaints, Continuance of care, Re-evaluation by your physician. Follow up: Emergency Department; When: As needed; Reason: Worsening of condition. Addendum: 06/03/2019 07:44 Co-signature as Attending Physician, Griffin Cook MD I agree with the assessment and k dr plan of care. Signatures: Emerald Bowens RN RN aj1 Griffin Cook MD MD [facility] Sherice Jacobs, LAST MODEL MAKER-C LAST MODEL MAKER-Csnw Yulia Sevilla RN ca1 Corrections: (The following items were deleted from the chart) 06/01 19:17 18:39 06/01/2019 18:39 Discharged to Home. Impression: Hyperglycemia, unspecified; aj1 Encounter for screening, unspecified - post dialysis. Condition is Stable. Forms are Medication Reconciliation Form, Thank You Letter, Antibiotic Education, Prescription Opioid Use. Follow up: Private Physician; When: 2 - 3 days; Reason: Recheck today's complaints, Continuance of care, Re-evaluation by your physician. Follow up: Emergency Department; When: As needed; Reason: Worsening of condition. snw
--- NOTE | 2019-06-01 18:40 | ER ---
Nurse's Notes [facility] Name: Archana Woo Age: 43 yrs Sex: Female : 1975 Arrival Date: 06/01/2019 Time: 17:25 Bed 28 Private MD: Diagnosis: Hyperglycemia, unspecified;Encounter for screening, unspecified-post dialysis Presentation: 06/01 17:44 Presenting complaint: Patient states: Dialysis told her to come to the ER because her aj1 blood pressure was 151/85 and her heart rate was between 108 and 120 during dialysis. Patient denies pain. Transition of care: patient was not received from another setting of care. Onset of symptoms was June 01, 2019. Risk Assessment: Do you want to hurt yourself or someone else? Patient reports no desire to harm self or others. Initial Sepsis Screen: Does the patient meet any 2 criteria? No. Patient's initial sepsis screen is negative. Does the patient have a suspected source of infection? No. Patient's initial sepsis screen is negative. Care prior to arrival: None. 17:44 Method Of Arrival: Wheelchair aj1 17:44 Acuity: TARUN 3 aj1 Triage Assessment: 17:47 General: Appears in no apparent distress. comfortable, Behavior is calm, cooperative, aj1 appropriate for age. Pain: Denies pain. 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 - Social history:: Smoking status: Patient uses tobacco products, denies chronic smoking, but will smoke occasionally. - Ebola Screening: : Patient denies travel to an Ebola-affected area in the 21 days before illness onset. Screenin:49 Abuse screen: Denies threats or abuse. Denies injuries from another. Nutritional aj1 screening: No deficits noted. Tuberculosis screening: No symptoms or risk factors identified. 19:13 Fall Risk None identified. aj1 Assessment: 17:49 General: Appears in no apparent distress. comfortable, Behavior is calm, cooperative, aj1 appropriate for age. Pain: Denies pain. Neuro: Level of Consciousness is awake, alert, obeys commands, Oriented to person, place, time, situation, Rivet Bucker are paralysis in left arm. Cardiovascular: Denies chest pain, Heart tones S1 S2 present Patient's skin is warm and dry. Rhythm is sinus rhythm. Respiratory: Airway is patent Respiratory effort is even, unlabored, Respiratory pattern is regular, symmetrical, Breath sounds are clear bilaterally. GI: No signs and/or symptoms were reported involving the gastrointestinal system. : No signs and/or symptoms were reported regarding the genitourinary system. EENT: No signs and/or symptoms were reported regarding the EENT system. Derm: No signs and/or symptoms reported regarding the dermatologic system. Skin is pink, warm \T\ dry. normal. Musculoskeletal: No signs and/or symptoms reported regarding the musculoskeletal system. Circulation, motion, and sensation intact. 18:50 Reassessment: Patient appears in no apparent distress at this time. No changes from aj1 previously documented assessment. Patient and/or family updated on plan of care and expected duration. Pain level reassessed. Patient is alert, oriented x 3, equal unlabored respirations, skin warm/dry/pink. 19:11 Reassessment: Patient ate approximately 1/4th of the sandwich provided to her, states aj1 that she does not want to eat anymore of the sandwich because she does not like the taste. Notified [place]ia Jacobs NP, who states that is sufficient to discharge the patient, but she should eat something as soon as she gets home. Patient was instructed to eat as soon as she gets home. Verbalized understanding. Vital Signs: 17:47 BP 159 / 87; Pulse 98; Resp 20; Temp 97.8; Pulse Ox 100% on R/A; Weight 54.43 kg (R); aj1 Height 5 ft. 4 in. (162.56 cm) (R); Pain 0/10; 18:16 BP 149 / 75; Pulse 87; Resp 13; Pulse Ox 100% on R/A; aj1 19:10 BP 152 / 76; Pulse 88; Resp 20; Pulse Ox 97% on R/A; aj1 17:47 Body Mass Index 20.60 (54.43 kg, 162.56 cm) aj1 ED Course: 17:25 Patient arrived in ED. mr 17:33 Sherice [facility]C [facility] snw 17:33 Griffin Cook MD is Attending Physician. snw 17:44 Emerald Bowens, RN is Primary Nurse. aj1 17:45 Triage completed. aj1 17:47 Arm band placed on. aj1 17:49 No provider procedures requiring assistance completed. aj1 17:50 Bed in low position. Call light in reach. Side rails up X 1. Side rails up X2. Adult w/ jp3 patient. Warm blanket given. Verbal reassurance given. campus monitor on. Pulse ox on. NIBP on. 17:50 Patient maintains SpO2 saturation greater than 95% on room air. jp3 19:13 Patient did not have IV access during this emergency room visit. aj1 Administered Medications: 18:47 Drug: Insulin Regular Human 4 units {Co-Signature: ca1 (Yulia Sevilla RN).} Route: Sub-Q; aj1 Site: left lower abdomen; 19:16 Follow up: Response: No adverse reaction aj1 Point of Care Testing: Blood Glucose: 18:16 Blood Glucose: 225 mg/dL; aj1 Ranges: Outcome: 18:39 Discharge ordered by . [facility] 19:14 Discharged to home via wheelchair. aj1 19:14 Condition: good 19:14 Discharge instructions given to patient, Instructed on discharge instructions, follow up and referral plans. medication usage, Demonstrated understanding of instructions, follow-up care, medications, Prescriptions given X 1. 19:17 Patient left the ED. aj1 Signatures: Emerald Bowens, RN RN aj1 Sherice Jacobs FNP-C FNP-Csnw Caro Guido Jose Rafael jp3 Yulia Sevilla RN ca1
[2019-06-01] MEDS ORDERED: INSULIN -REGULAR HUMAN 50 UNIT/0.5 ML ML ONE (18:43)
[2019-06-01 19:34] VITALS: TEMP 97.8
[2019-06-01 19:35] VITALS: BP 152/76; O2SAT 97
--- NOTE | 2019-06-02 05:14 | EKG ---
Test Date: 2019-06-01 Test Time: 18:26:31 Manager Human Resources: PATSY MEASUREMENT RESULTS: Intervals: Rate: 88 WI: 146 QRSD: 76 QT: 394 QTc: 476 [place]: P: 72 WI: 146 QRS: 3 T: 60 INTERPRETIVE STATEMENTS: Normal sinus rhythm Possible Left atrial enlargement Borderline ECG Compared to ECG 04/11/2019 15:04:27 No significant changes Electronically Signed On 06-02-19 05:13:43 CDT by Souleymane Julio
== END 2019-06-01 19:17 | disposition home or self-care (01) ==
LOC: ER 17:22
DX: E11.65 Type 2 diabetes mellitus with hyperglycemia (principal); Z13.9 Encounter for screening, unspecified; Z99.2 Dependence on renal dialysis; Z79.4 Long term (current) use of insulin; Z72.0 Tobacco use
CPT/HCPCS: 36415; 82962; 93005; 96372; 99284

== ENCOUNTER 2019-07-15 15:56 | Emergency (ER) | payer OTHER ==
--- OUTSIDE RECORDS SUMMARY | 2019-07-15 15:59 | XMS REPORT ---
:1975 [facility] Address [address] [place] [address] Dr. Soto [address] [place] [id number] Care Team Providers Name Role Phone ARON EDWARDS Unavailable Unavailable Problems This patient has no known problems. Allergies, Adverse Reactions, Alerts This patient has no known allergies or adverse reactions. Medications This patient has no known medications. Procedures and Interventions Procedure Date / Time Performed Performing Clinician [id number] 2019-05-18 00:00:00 [id number] 2019-05-18 00:00:00 [id number] 2019-05-18 00:00:00 Encounters Start End Encounter Admission Attending Care Care Encounter Date/Time Date/Time Type Type Clinicians Facility Department ID 2019-04-12 Inpatient [facility] 9239 13:57:46 Results Test Description Test Time Test Comments Text Results Atomic Results Result Comments FACTOR 5 LEIDEN PCR (THROMBOTIC RISK) 2017-03-24 19:24:00 Test Item Value Reference Range Comments FACTOR V LEIDEN (BEAKER) (test vsoo=447) Negative for the R506Q (Factor V Leiden) mutation [id number] (BEAKER) (test Martínez Wang MD (electronic signature) fohb=0570) This test is a genotyping assay which [...] was developed and its performance characteristics determined bythe [facility] Pathology Department, Section of Molecular Pathology. It has not been cleared or approved by the U.S. Food and Drug Administration (FDA), since FDA approval is not required for clinical use of the test. Validation was done as required by the Clinical Laboratory Improvement Amendments of 1988.POCT-GLUCOSE [id number] 07:28:00 Test Item Value Reference Range Comments POC-GLUCOSE METER (BEAKER) 200 mg/dL 70-[address] [facility] [address] [facility] (test xbvj=2599) [facility] [address] POCT-GLUCOSE [id number] 21:18:00 Test Item Value Reference Range Comments POC-GLUCOSE METER (BEAKER) 211 mg/dL 70-[address] [facility] [address] [facility] (test hznz=6430) [facility] [address] PROTEIN, RANDOM [id number] 19:43:00 Test Item Value Reference Range Comments PROTEIN, URINE (BEAKER) (test wvgk=4138) 286 mg/dL 0-14 CREATININE, RANDOM [id number] 18:27:00 Test Item Value Reference Range Comments CREATININE URINE (BEAKER) (test synz=114) 29.3 mg/dL Reference Range: No NormalsDILUTE SHIRA VIPER VENOM (DRVV)2017-03-19 12:47:00 Test Item Value Reference Range Comments PROTIME (BEAKER) (test 11.3 seconds 11.7-14.7 mrve=021) INR (BEAKER) (test hmcu=143) 0.8 <=5.9 PARTIAL THROMBOPLASTIN TIME 28.0 seconds 22.5-36.0 (BEAKER) (test khng=022) DRVV INTERPRETATION (BEAKER) Normal DRVV Results (test knvw=3450) DRVV INTERPRETATION (BEAKER) Normal Hexagonal Phospholipid (test wayd=575010) [id number] (BEAKER) Martínez Wang MD (electronic (test dipf=1796) signature) DRVV SCREEN RATIO (BEAKER) 0.84 <1.20 (test qmcs=2764) Effective 12/20/2013: Test Method ChangeDRVV Screen Ratio, DRVV 1/1 Screen Ratio, DRVV Confirm Ratio,DRVV Normalized Ratio Reference Range: <1.2Protime Reference Range ChangeNew: 11.7-14.7 Previous: 9.8-12.0PTT Reference Range ChangeNew: 22.5-36.0 Previous: 25.8-34.5URINE [id number] 11:40:00 Test Item Value Reference Range Comments CULTURE (BEAKER) (test 20-29,000 col/mL skin lei ecgb=6153) POCT-GLUCOSE [id number] 08:33:00 Test Item Value Reference Range Comments POC-GLUCOSE METER (BEAKER) 293 mg/dL 70-[address] [facility] [address] [facility] (test spue=6964) [facility] [address] VITAMIN D, [id number] 07:49:00 Test Item Value Reference Range Comments VITAMIN D 25-OH (BEAKER) (test kqli=7752) < ng/mL 13.0-47.8 CBC W/PLT COUNT & AUTO [id number] 05:59:00 Test Item Value Reference Range Comments WHITE BLOOD CELL COUNT (BEAKER) (test hezq=237) 9.4 K/ L 3.5-10.5 RED BLOOD CELL COUNT (BEAKER) (test cofr=092) 4.16 M/ L 3.93-5.22 HEMOGLOBIN (BEAKER) (test zdsl=637) 12.7 GM/DL 11.2-15.7 HEMATOCRIT (BEAKER) (test shph=184) 38.0 % 34.1-44.9 MEAN CORPUSCULAR VOLUME (BEAKER) (test bdnp=678) 91.3 fL 79.4-94.8 MEAN CORPUSCULAR HEMOGLOBIN (BEAKER) (test 30.5 pg 25.6-32.2 cari=423) MEAN CORPUSCULAR HEMOGLOBIN CONC (BEAKER) (test 33.4 GM/DL 32.2-35.5 rhvw=281) RED CELL DISTRIBUTION WIDTH (BEAKER) (test 12.6 % 11.7-14.4 hoks=079) PLATELET COUNT (BEAKER) (test mbxs=039) 329 K/CU MM 150-450 MEAN PLATELET VOLUME (BEAKER) (test lfhk=374) 10.0 fL 9.4-12.3 NUCLEATED RED BLOOD CELLS (BEAKER) (test 0 /100 WBC 0-0 lfid=785) NEUTROPHILS RELATIVE PERCENT (BEAKER) (test 68 % kdbx=909) LYMPHOCYTES RELATIVE PERCENT (BEAKER) (test 23 % dyar=163) MONOCYTES RELATIVE PERCENT (BEAKER) (test 7 % vpbo=720) EOSINOPHILS RELATIVE PERCENT (BEAKER) (test 1 % sqaq=085) BASOPHILS RELATIVE PERCENT (BEAKER) (test 1 % ehyi=611) NEUTROPHILS ABSOLUTE COUNT (BEAKER) (test 6.35 K/ L 1.56-6.13 mrin=935) LYMPHOCYTES ABSOLUTE COUNT (BEAKER) (test 2.16 K/ L 1.18-3.74 ftuw=699) MONOCYTES ABSOLUTE COUNT (BEAKER) (test 0.68 K/ L 0.24-0.36 geex=649) EOSINOPHILS ABSOLUTE COUNT (BEAKER) (test 0.10 K/ L 0.04-0.36 dvld=312) BASOPHILS ABSOLUTE COUNT (BEAKER) (test 0.06 K/ L 0.01-0.08 ifen=542) IMMATURE GRANULOCYTES-RELATIVE PERCENT (BEAKER) 0 % 0-1 (test ekyf=3377) BASIC METABOLIC [id number] 05:38:00 Test Item Value Reference Range Comments SODIUM (BEAKER) (test 135 meq/L 136-145 wbow=820) POTASSIUM (BEAKER) (test 4.1 meq/L 3.5-5.1 kbfm=976) CHLORIDE (BEAKER) (test 102 meq/L 98-107 euqu=110) CO2 (BEAKER) (test 25 meq/L 22-29 crwb=225) BLOOD UREA NITROGEN 12 mg/dL 7-21 (BEAKER) (test bsmr=902) CREATININE (BEAKER) (test 1.99 mg/dL 0.57-1.25 qlso=394) GLUCOSE RANDOM (BEAKER) 290 mg/dL 70-105 (test sfce=562) CALCIUM (BEAKER) (test 8.7 mg/dL 8.4-10.2 dwcs=656) EGFR (BEAKER) (test 27 mL/min/1.73 sq m ESTIMATED GFR IS NOT bext=7483) ACCURATE CREATININE CLEARANCE IN PREDICTING GLOMERULAR FILTRATION RATE. ESTIMATED GFR IS NOT APPLICABLE FOR DIALYSIS PATIENTS. [id number] 05:37:00 Test Item Value Reference Range Comments PHOSPHORUS (BEAKER) (test jzmv=908) 4.1 mg/dL 2.3-4.7 [id number] 05:37:00 Test Item Value Reference Range Comments MAGNESIUM (BEAKER) (test zmyi=691) 1.7 mg/dL 1.6-2.6 PTH, [id number] 05:34:00 Test Item Value Reference Range Comments PARATHYROID HORMONE INTACT (BEAKER) (test 57.2 pg/mL 8.5-72.5 djjw=201) Effective 07/04/2014: Reference Range ChangeNew: 8.5-72.5 Previous: 15.0- 90.0CARDIOLIPIN ANTIBODIES, IGG AND [id number] 22:36:00 Test Item Value Reference Range Comments ANTICARDIOLIPIN IGG ANTIBODY (BEAKER) (test < GPL lmyk=252) ANTICARDIOLIPIN IGM ANTIBODY (BEAKER) (test 2.8 MPL uion=542) Anticardiolipin IgG Result Interpretation:NEG: <20 GPL; U/mlPOS: >/=20 GPL; U/mlAnticardiolipin IgM Result Interpretation:NEG: <20 MPL; U/mlPOS: >/=20 MPL; U/mlPOCT-GLUCOSE [id number] 21:25:00 Test Item Value Reference Range Comments POC-GLUCOSE METER (BEAKER) 198 mg/dL 70-110 TESTED AT [address] (test jgzh=6239) [facility] [address] POCT-GLUCOSE [id number] 16:29:00 Test Item Value Reference Range Comments POC-GLUCOSE METER (BEAKER) 296 mg/dL 70-110 TESTED AT [address] (test tefr=2757) [facility] [address] ANTI-NUCLEAR ANTIBODY (MARY)2017-03-18 15:30:00 Test Item Value Reference Range Comments ANTI-NUCLEAR ANTIBODY (MARY) (BEAKER) (test Negative Negative doid=231) HEXAGONAL [id number] 13:21:00 Test Item Value Reference Range Comments HEXAGONAL PHOSPHOLIPID (BEAKER) (test wnns=8583) Negative POCT-GLUCOSE [id number] 12:15:00 Test Item Value Reference Range Comments POC-GLUCOSE METER (BEAKER) 140 mg/dL 70-110 TESTED AT [address] (test tybu=7184) [facility] [address] PROTEIN C [id number] 11:44:00 Test Item Value Reference Range Comments PROTEIN C ACTIVITY (BEAKER) (test vrql=212) 155.0 % 70.0-130.0 Effective 12/20/2013: Reference Range Change-Adult onlyNew: 70.0-130.0 Previous : 70.0-140.0See Protein C Antigen.ANTITHROMBIN [id number] 11:43:00 Test Item Value Reference Range Comments ANTITHROMBIN III ACTIVITY (BEAKER) (test qgfv=683) 87.0 % 80.0-120.0 Effective 12/20/2013: Reference Range Change-Adult onlyNew: 80.0-120.0 Previous : 90.0-128.0POCT-GLUCOSE [id number] 08:17:00 Test Item Value Reference Range Comments POC-GLUCOSE METER (BEAKER) 107 mg/dL 70-[address] [facility] [address] [facility] (test rxor=2782) [facility] [address] BASIC METABOLIC [id number] 06:32:00 Test Item Value Reference Range Comments SODIUM (BEAKER) (test 136 meq/L 136-145 zjca=289) POTASSIUM (BEAKER) (test 3.6 meq/L 3.5-5.1 kiob=866) CHLORIDE (BEAKER) (test 104 meq/L 98-107 qekg=767) CO2 (BEAKER) (test 23 meq/L 22-29 mrqf=573) BLOOD UREA NITROGEN 11 mg/dL 7-21 (BEAKER) (test kpqu=110) CREATININE (BEAKER) (test 1.68 mg/dL 0.57-1.25 xupe=770) GLUCOSE RANDOM (BEAKER) 99 mg/dL 70-105 (test ejyy=195) CALCIUM (BEAKER) (test 8.4 mg/dL 8.4-10.2 hlga=551) EGFR (BEAKER) (test 33 mL/min/1.73 sq m ESTIMATED GFR IS NOT piac=3994) ACCURATE CREATININE CLEARANCE IN PREDICTING GLOMERULAR FILTRATION RATE. ESTIMATED GFR IS NOT APPLICABLE FOR DIALYSIS PATIENTS. CBC W/PLT COUNT & AUTO [id number] 05:56:00 Test Item Value Reference Range Comments WHITE BLOOD CELL COUNT (BEAKER) (test enrg=002) 11.7 K/ L 3.5-10.5 RED BLOOD CELL COUNT (BEAKER) (test pzig=967) 3.95 M/ L 3.93-5.22 HEMOGLOBIN (BEAKER) (test xfwk=140) 12.1 GM/DL 11.2-15.7 HEMATOCRIT (BEAKER) (test ybxu=784) 36.3 % 34.1-44.9 MEAN CORPUSCULAR VOLUME (BEAKER) (test ecpo=747) 91.9 fL 79.4-94.8 MEAN CORPUSCULAR HEMOGLOBIN (BEAKER) (test 30.6 pg 25.6-32.2 bzbb=900) MEAN CORPUSCULAR HEMOGLOBIN CONC (BEAKER) (test 33.3 GM/DL 32.2-35.5 thgi=941) RED CELL DISTRIBUTION WIDTH (BEAKER) (test 12.7 % 11.7-14.4 nnxb=142) PLATELET COUNT (BEAKER) (test mefu=592) 349 K/CU MM 150-450 MEAN PLATELET VOLUME (BEAKER) (test zlto=164) 10.8 fL 9.4-12.3 NUCLEATED RED BLOOD CELLS (BEAKER) (test 0 /100 WBC 0-0 ahbb=909) NEUTROPHILS RELATIVE PERCENT (BEAKER) (test 59 % qdaj=508) LYMPHOCYTES RELATIVE PERCENT (BEAKER) (test 31 % wvue=773) MONOCYTES RELATIVE PERCENT (BEAKER) (test 8 % pzkh=326) EOSINOPHILS RELATIVE PERCENT (BEAKER) (test 2 % rkyj=680) BASOPHILS RELATIVE PERCENT (BEAKER) (test 1 % bvac=194) NEUTROPHILS ABSOLUTE COUNT (BEAKER) (test 6.87 K/ L 1.56-6.13 mcmi=326) LYMPHOCYTES ABSOLUTE COUNT (BEAKER) (test 3.57 K/ L 1.18-3.74 bhaf=660) MONOCYTES ABSOLUTE COUNT (BEAKER) (test 0.90 K/ L 0.24-0.36 wxuz=104) EOSINOPHILS ABSOLUTE COUNT (BEAKER) (test 0.24 K/ L 0.04-0.36 chiw=502) BASOPHILS ABSOLUTE COUNT (BEAKER) (test 0.06 K/ L 0.01-0.08 dfpi=440) IMMATURE GRANULOCYTES-RELATIVE PERCENT (BEAKER) 0 % 0-1 (test tnkh=8347) POCT-GLUCOSE [id number] 04:32:00 Test Item Value Reference Range Comments POC-GLUCOSE METER (BEAKER) 107 mg/dL 70-[address] [facility] [address] [facility] (test ogfo=3492) [facility] [address] POCT-GLUCOSE [id number] 22:21:00 Test Item Value Reference Range Comments POC-GLUCOSE METER (BEAKER) 118 mg/dL 70-[address] [facility] [address] (test vvsu=3802) [facility] [address] POCT-GLUCOSE [id number] 21:22:00 Test Item Value Reference Range Comments POC-GLUCOSE METER (BEAKER) 52 mg/dL 70-110 Notified ARMOND REYNOSO/TESTED AT [facility] (test tgxh=1362) [address] [facility] [address] MICROALBUMIN, RANDOM [id number] 17:57:00 Test Item Value Reference Range Comments MICROALBUMIN URINE (BEAKER) (test ynsb=2286) > mg/dL Reference Range: No NormalsURINALYSIS W/ [id number] 17:36:00 Test Item Value Reference Range Comments COLOR (BEAKER) (test foaf=353) Light Yellow CLARITY (BEAKER) (test pfbd=184) Clear SPECIFIC GRAVITY UA (BEAKER) (test svbf=244) 1.005 1.001-1.035 PH UA (BEAKER) (test qotj=194) 7.0 5.0-8.0 PROTEIN UA (BEAKER) (test iajm=750) 300 mg/dL Negative GLUCOSE UA (BEAKER) (test aggt=462) 30 mg/dL Negative KETONES UA (BEAKER) (test gziy=500) Negative Negative BILIRUBIN UA (BEAKER) (test voou=093) Negative Negative BLOOD UA (BEAKER) (test lnmf=754) Negative Negative NITRITE UA (BEAKER) (test rsvu=741) Negative Negative LEUKOCYTE ESTERASE UA (BEAKER) (test boun=648) Negative Negative UROBILINOGEN UA (BEAKER) (test houc=904) 0.2 mg/dL 0.2-1.0 RBC UA (BEAKER) (test lfqi=056) 1 /HPF WBC UA (BEAKER) (test vcmv=378) < /HPF BACTERIA (BEAKER) (test orgp=152) Rare SQUAMOUS EPITHELIAL (BEAKER) (test znxv=804) 1 /HPF SOURCE(BEAKER) (test qppk=8521) Urine, Voided SCREEN, [id number] 17:36:00 Test Item Value Reference Range Comments TEST URINE (BEAKER) (test wchg=042) Negative CREATININE, RANDOM [id number] 17:35:00 Test Item Value Reference Range Comments CREATININE URINE (BEAKER) (test frig=727) 33.9 mg/dL Reference Range: No NormalsSODIUM, RANDOM [id number] 17:35:00 Test Item Value Reference Range Comments SODIUM URINE (BEAKER) (test mxyd=491) 63 meq/L Reference Range: No NormalsPOCT-GLUCOSE [id number] 17:34:00 Test Item Value Reference Range Comments POC-GLUCOSE METER (BEAKER) 118 mg/dL 70-110 TESTED AT [address] (test lnyo=5983) [facility] [address] POCT-GLUCOSE [id number] 13:28:00 Test Item Value Reference Range Comments POC-GLUCOSE METER (BEAKER) 71 mg/dL 70-110 TESTED AT [address] (test vqji=0907) [facility] [address] POCT-GLUCOSE [id number] 10:37:00 Test Item Value Reference Range Comments POC-GLUCOSE METER (BEAKER) 144 mg/dL 70-110 TESTED AT [address] (test gnxe=7818) [facility] [address] POCT-GLUCOSE [id number] 07:18:00 Test Item Value Reference Range Comments POC-GLUCOSE METER (BEAKER) 60 mg/dL 70-110 TESTED AT [address] (test pfsw=7083) [facility] [address] CBC W/PLT COUNT & AUTO [id number] 05:51:00 Test Item Value Reference Range Comments WHITE BLOOD CELL COUNT (BEAKER) (test ojww=629) 11.4 K/ L 3.5-10.5 RED BLOOD CELL COUNT (BEAKER) (test lnob=616) 3.81 M/ L 3.93-5.22 HEMOGLOBIN (BEAKER) (test hakd=831) 11.6 GM/DL 11.2-15.7 HEMATOCRIT (BEAKER) (test ddra=146) 34.5 % 34.1-44.9 MEAN CORPUSCULAR VOLUME (BEAKER) (test yufm=649) 90.6 fL 79.4-94.8 MEAN CORPUSCULAR HEMOGLOBIN (BEAKER) (test 30.4 pg 25.6-32.2 fdcn=315) MEAN CORPUSCULAR HEMOGLOBIN CONC (BEAKER) (test 33.6 GM/DL 32.2-35.5 epmy=231) RED CELL DISTRIBUTION WIDTH (BEAKER) (test 12.6 % 11.7-14.4 qwud=757) PLATELET COUNT (BEAKER) (test qfov=789) 354 K/CU MM 150-450 MEAN PLATELET VOLUME (BEAKER) (test zpdd=113) 10.4 fL 9.4-12.3 NUCLEATED RED BLOOD CELLS (BEAKER) (test 0 /100 WBC 0-0 gptj=422) NEUTROPHILS RELATIVE PERCENT (BEAKER) (test 72 % iqvy=132) LYMPHOCYTES RELATIVE PERCENT (BEAKER) (test 20 % qrkz=993) MONOCYTES RELATIVE PERCENT (BEAKER) (test 6 % chpz=767) EOSINOPHILS RELATIVE PERCENT (BEAKER) (test 1 % jhwr=242) BASOPHILS RELATIVE PERCENT (BEAKER) (test 0 % refp=277) NEUTROPHILS ABSOLUTE COUNT (BEAKER) (test 8.21 K/ L 1.56-6.13 vvvg=478) LYMPHOCYTES ABSOLUTE COUNT (BEAKER) (test 2.31 K/ L 1.18-3.74 fuul=552) MONOCYTES ABSOLUTE COUNT (BEAKER) (test 0.65 K/ L 0.24-0.36 zjey=510) EOSINOPHILS ABSOLUTE COUNT (BEAKER) (test 0.11 K/ L 0.04-0.36 uoji=978) BASOPHILS ABSOLUTE COUNT (BEAKER) (test 0.05 K/ L 0.01-0.08 xgub=718) IMMATURE GRANULOCYTES-RELATIVE PERCENT (BEAKER) 0 % 0-1 (test nxzw=4448) BASIC METABOLIC [id number] 05:51:00 Test Item Value Reference Range Comments SODIUM (BEAKER) (test 138 meq/L 136-145 lyon=296) POTASSIUM (BEAKER) (test 3.8 meq/L 3.5-5.1 cdzc=328) CHLORIDE (BEAKER) (test 105 meq/L 98-107 tbin=940) CO2 (BEAKER) (test 26 meq/L 22-29 dahc=980) BLOOD UREA NITROGEN 13 mg/dL 7-21 (BEAKER) (test rohl=190) CREATININE (BEAKER) (test 1.66 mg/dL 0.57-1.25 amaa=519) GLUCOSE RANDOM (BEAKER) 167 mg/dL 70-105 (test omrr=919) CALCIUM (BEAKER) (test 8.9 mg/dL 8.4-10.2 rpcd=724) EGFR (BEAKER) (test 34 mL/min/1.73 sq m ESTIMATED GFR IS NOT aloy=1802) ACCURATE CREATININE CLEARANCE IN PREDICTING GLOMERULAR FILTRATION RATE. ESTIMATED GFR IS NOT APPLICABLE FOR DIALYSIS PATIENTS. POCT-GLUCOSE [id number] 21:41:00 Test Item Value Reference Range Comments POC-GLUCOSE METER (BEAKER) 287 mg/dL 70-[address] [facility] [address] [facility] (test umsv=5947) [facility] [address] BASIC METABOLIC [id number] 12:35:00 Test Item Value Reference Range Comments SODIUM (BEAKER) (test 134 meq/L 136-145 tuhj=511) POTASSIUM (BEAKER) (test 4.6 meq/L 3.5-5.1 mjbn=983) CHLORIDE (BEAKER) (test 105 meq/L 98-107 bvrk=568) CO2 (BEAKER) (test 23 meq/L 22-29 ljgg=662) BLOOD UREA NITROGEN 14 mg/dL 7-21 (BEAKER) (test yenh=002) CREATININE (BEAKER) 1.59 mg/dL 0.57-1.25 (test othg=407) GLUCOSE RANDOM (BEAKER) 266 mg/dL 70-105 (test xify=558) CALCIUM (BEAKER) (test 8.2 mg/dL 8.4-10.2 efph=037) EGFR (BEAKER) (test 36 mL/min/1.73 sq m INSUFFICIENT CLINICAL DATA eefn=1773) TO CALCULATE ESTIMATED GFR.This is an appended report. These results have been appended to a previously final verified report. CBC W/PLT COUNT & AUTO [id number] 04:54:00 Test Item Value Reference Range Comments WHITE BLOOD CELL COUNT (BEAKER) (test suld=895) 10.6 K/ L 3.5-10.5 RED BLOOD CELL COUNT (BEAKER) (test pzqu=870) 3.55 M/ L 3.93-5.22 HEMOGLOBIN (BEAKER) (test mgvi=443) 10.8 GM/DL 11.2-15.7 HEMATOCRIT (BEAKER) (test cfjw=081) 32.6 % 34.1-44.9 MEAN CORPUSCULAR VOLUME (BEAKER) (test abco=090) 91.8 fL 79.4-94.8 MEAN CORPUSCULAR HEMOGLOBIN (BEAKER) (test 30.4 pg 25.6-32.2 itpe=628) MEAN CORPUSCULAR HEMOGLOBIN CONC (BEAKER) (test 33.1 GM/DL 32.2-35.5 aoja=792) RED CELL DISTRIBUTION WIDTH (BEAKER) (test 12.3 % 11.7-14.4 qusa=290) PLATELET COUNT (BEAKER) (test azru=243) 311 K/CU MM 150-450 MEAN PLATELET VOLUME (BEAKER) (test eksy=962) 10.2 fL 9.4-12.3 NUCLEATED RED BLOOD CELLS (BEAKER) (test 0 /100 WBC 0-0 rvmp=847) NEUTROPHILS RELATIVE PERCENT (BEAKER) (test 71 % xgbx=438) LYMPHOCYTES RELATIVE PERCENT (BEAKER) (test 20 % alhv=632) MONOCYTES RELATIVE PERCENT (BEAKER) (test 6 % rjom=262) EOSINOPHILS RELATIVE PERCENT (BEAKER) (test 3 % glco=783) BASOPHILS RELATIVE PERCENT (BEAKER) (test 1 % odoa=978) NEUTROPHILS ABSOLUTE COUNT (BEAKER) (test 7.51 K/ L 1.56-6.13 ctcp=035) LYMPHOCYTES ABSOLUTE COUNT (BEAKER) (test 2.11 K/ L 1.18-3.74 lhcz=172) MONOCYTES ABSOLUTE COUNT (BEAKER) (test 0.60 K/ L 0.24-0.36 cdjx=932) EOSINOPHILS ABSOLUTE COUNT (BEAKER) (test 0.27 K/ L 0.04-0.36 qgvw=549) BASOPHILS ABSOLUTE COUNT (BEAKER) (test 0.07 K/ L 0.01-0.08 cbam=430) IMMATURE GRANULOCYTES-RELATIVE PERCENT (BEAKER) 1 % 0-1 (test vugc=4667) [id number] 20:17:00 Test Item Value Reference Range Comments RPR SCREEN (BEAKER) (test npvd=966) Nonreactive Nonreactive POCT-GLUCOSE [id number] 18:09:00 Test Item Value Reference Range Comments POC-GLUCOSE METER (BEAKER) 215 mg/dL 70-[address] [facility] [address] [facility] (test nvfv=5090) [facility] [address] CBC W/PLT COUNT & AUTO [id number] 11:54:00 Test Item Value Reference Range Comments WHITE BLOOD CELL COUNT (BEAKER) (test lnpx=753) 9.3 K/ L 3.5-10.5 RED BLOOD CELL COUNT (BEAKER) (test sqks=423) 3.45 M/ L 3.93-5.22 HEMOGLOBIN (BEAKER) (test hylk=518) 10.7 GM/DL 11.2-15.7 HEMATOCRIT (BEAKER) (test tqtt=269) 32.0 % 34.1-44.9 MEAN CORPUSCULAR VOLUME (BEAKER) (test wrjs=293) 92.8 fL 79.4-94.8 MEAN CORPUSCULAR HEMOGLOBIN (BEAKER) (test 31.0 pg 25.6-32.2 xidu=113) MEAN CORPUSCULAR HEMOGLOBIN CONC (BEAKER) (test 33.4 GM/DL 32.2-35.5 dulu=382) RED CELL DISTRIBUTION WIDTH (BEAKER) (test 12.7 % 11.7-14.4 uuho=215) PLATELET COUNT (BEAKER) (test pfir=065) 302 K/CU MM 150-450 MEAN PLATELET VOLUME (BEAKER) (test xivh=907) 10.0 fL 9.4-12.3 NUCLEATED RED BLOOD CELLS (BEAKER) (test 0 /100 WBC 0-0 zbdu=505) NEUTROPHILS RELATIVE PERCENT (BEAKER) (test 60 % qisf=298) LYMPHOCYTES RELATIVE PERCENT (BEAKER) (test 29 % puxe=521) MONOCYTES RELATIVE PERCENT (BEAKER) (test 8 % cwoa=488) EOSINOPHILS RELATIVE PERCENT (BEAKER) (test 3 % diks=611) BASOPHILS RELATIVE PERCENT (BEAKER) (test 1 % zado=330) NEUTROPHILS ABSOLUTE COUNT (BEAKER) (test 5.55 K/ L 1.56-6.13 dcsq=124) LYMPHOCYTES ABSOLUTE COUNT (BEAKER) (test 2.65 K/ L 1.18-3.74 dihr=112) MONOCYTES ABSOLUTE COUNT (BEAKER) (test 0.70 K/ L 0.24-0.36 umud=424) EOSINOPHILS ABSOLUTE COUNT (BEAKER) (test 0.31 K/ L 0.04-0.36 okvl=103) BASOPHILS ABSOLUTE COUNT (BEAKER) (test 0.05 K/ L 0.01-0.08 tvhq=562) IMMATURE GRANULOCYTES-RELATIVE PERCENT (BEAKER) 0 % 0-1 (test iylu=8128) (MANUAL DIFFERENTIAL)2017-03-15 11:54:00 Test Item Value Reference Range Comments TOTAL COUNTED (BEAKER) (test ndwb=5884) WBC MORPHOLOGY (BEAKER) (test vrre=451) Normal PLT MORPHOLOGY (BEAKER) (test kicj=037) Normal RBC MORPHOLOGY (BEAKER) (test tgba=036) Normal SEDIMENTATION [id number] 10:27:00 Test Item Value Reference Range Comments SEDIMENTATION RATE, ERYTHROCYTE (BEAKER) (test 79 mm/HR 0-20 vzws=989) HEMOGLOBIN [id number] 09:33:00 Test Item Value Reference Range Comments HEMOGLOBIN A1C (BEAKER) (test ontm=196) 9.8 % 4.3-6.1 VITAMIN [id number] 09:14:00 Test Item Value Reference Range Comments VITAMIN B12 (BEAKER) (test bakt=328) 1790 pg/mL 213-816 TSH/FREE T4 IF [id number] 09:14:00 Test Item Value Reference Range Comments THYROID STIMULATING HORMONE (BEAKER) (test 1.08 uIU/mL 0.35-4.94 hhgt=749) BASIC METABOLIC [id number] 08:52:00 Test Item Value Reference Range Comments SODIUM (BEAKER) (test 137 meq/L 136-145 cvsb=494) POTASSIUM (BEAKER) (test 4.7 meq/L 3.5-5.1 dohl=685) CHLORIDE (BEAKER) (test 107 meq/L 98-107 qokw=322) CO2 (BEAKER) (test 25 meq/L 22-29 dynb=333) BLOOD UREA NITROGEN 18 mg/dL 7-21 (BEAKER) (test xlco=066) CREATININE (BEAKER) (test 1.77 mg/dL 0.57-1.25 pxis=537) GLUCOSE RANDOM (BEAKER) 290 mg/dL 70-105 (test ugfm=769) CALCIUM (BEAKER) (test 8.0 mg/dL 8.4-10.2 zunt=367) EGFR (BEAKER) (test mL/min/1.73 sq m INSUFFICIENT CLINICAL DATA phsb=0315) TO CALCULATE ESTIMATED GFR. FastingLIPID [id number] 08:51:00 Test Item Value Reference Range Comments TRIGLYCERIDES (BEAKER) (test pucb=937) 90 mg/dL CHOLESTEROL (BEAKER) (test izef=684) 143 mg/dL HDL CHOLESTEROL (BEAKER) (test jfrq=267) 44 mg/dL LDL CHOLESTEROL CALCULATED (BEAKER) (test 81 mg/dL rkra=066) Triglyceride Reference Range: Low Risk <150 Borderline 150- 199 High Risk 200-499 Very High Risk >=500Cholesterol Reference Range: Low Risk <200 Borderline 200-239 High Risk > 240HDL Cholesterol Reference Range: Low Risk >=60 High Risk <40LDL Cholesterol Reference Range: Optimal <100 Near Optimal 100-129 Borderline 130-159 High 160-189 Very High >=190 FastingHCG, QUANTITATIVE, [id number] 01:43:00 Test Item Value Reference Range Comments GONADOTROPIN, CHORIONIC (HCG) QUANT (BEAKER) (test < mIU/mL 0-10 rizs=842) Non- Females: <10 mIU/mL Females: Gestation Age Reference Range(mIU/mL) 0.2-1 Week 5-50 1-2 Weeks 50-500 2-3 Weeks 100-5,000 3-4Weeks 500-10,000 4 -5 Weeks 1,000-50,000 5-6 Weeks 10,000-100,000 6-8 Weeks 15,000-200,000 2-3 Months 10,000-100,000COMPREHENSIVE METABOLIC [id number] 21:57:00 Test Item Value Reference Range Comments TOTAL PROTEIN (BEAKER) 5.0 gm/dL 6.0-8.3 (test iqax=532) ALBUMIN (BEAKER) (test 2.1 g/dL 3.5-5.0 qjyt=3088) ALKALINE PHOSPHATASE 106 U/L 40-150 (BEAKER) (test ragh=422) BILIRUBIN TOTAL (BEAKER) 0.2 mg/dL 0.2-1.2 (test kllk=488) SODIUM (BEAKER) (test 137 meq/L 136-145 nssl=050) POTASSIUM (BEAKER) (test 4.7 meq/L 3.5-5.1 qfcy=115) CHLORIDE (BEAKER) (test 106 meq/L 98-107 gwgf=200) CO2 (BEAKER) (test 25 meq/L 22-29 ayzg=491) BLOOD UREA NITROGEN 21 mg/dL 7-21 (BEAKER) (test rotr=476) CREATININE (BEAKER) (test 2.00 mg/dL 0.57-1.25 qtgv=041) GLUCOSE RANDOM (BEAKER) 285 mg/dL 70-105 (test eoyw=036) CALCIUM (BEAKER) (test 7.9 mg/dL 8.4-10.2 mnsy=812) AST (SGOT) (BEAKER) (test 16 U/L 5-34 byem=542) ALT (SGPT) (BEAKER) (test 14 U/L 6-55 emkp=[id number]) EGFR (BEAKER) (test mL/min/1.73 sq m INSUFFICIENT CLINICAL DATA [id number]=[id number]) TO CALCULATE ESTIMATED GFR. Unit CollectPOCT-GLUCOSE [id number] 21:50:00 Test Item Value Reference Range Comments POC-GLUCOSE METER (BEAKER) 278 mg/dL 70-[address] [facility] [address] [facility] (test onql=[id number]) [facility] [id number]
[2019-07-15 16:36] LABS: Absolute Lymphocytes (CBC) 2.1 K/uL (0.7-4.9); Basophils % 0.8 % (0-1.3); Hematocrit 35.4 % (36.0-45.0); Lymphocytes % 22.1 % (15.3-44.8); MPV 8.4 fL (7.6-11.3); RBC Red Blood Cell Count 3.86 M/uL (3.86-4.86)
[2019-07-15 16:45] LABS: Potassium 4.6 mmol/L (3.5-5.1)
--- NOTE | 2019-07-15 16:48 | RAD REPORT ---
EXAM DESCRIPTION: CT - Ct Stroke Brain Wo Cont - 07/15/2019 4:27 pm CLINICAL HISTORY: Generalized weakness and numbness, dizziness, left-sided numbness, history of TIA CLINICAL HISTORY: CT head November 2018 TECHNIQUE: Axial 5 millimeter thick images of the head were obtained without IV contrast. All CT scans are performed using dose optimization technique as appropriate and may include automated exposure control or mA/KV adjustment according to patient size. FINDINGS: No intracranial hemorrhage, mass, or cerebral edema. No acute cortical based infarction id entified. No cortical edema or sulcal effacement. Underlying atrophy and chronic ischemic changes are present. Focal encephalomalacia changes are present in the right frontal lobe deep periventricular w colin matter. No extra-axial fluid collections. Coffman matter-white matter differentiation is preserved . Visualized portions of the mastoid air cells, paranasal sinuses, and orbits are unremarkable. Findings telephoned to the referring clinician 4:40 p.m. IMPRESSION: No intracranial hemorrhage. No acute cortical based infarction identified. Patient has atrophy and chronic ischemic changes that match the November study. Chronic ischemic changes can mask nonhemorrhagic acute infarction. MR brain followup can be obtained if there is ongoing concern for acute ischemia.
[2019-07-15 16:51] LABS: Protime INR 0.94
--- NOTE | 2019-07-15 16:56 | RAD REPORT ---
EXAM DESCRIPTION: RAD - Chest Single View - 07/15/2019 4:46 pm CLINICAL HISTORY: Stroke protocol chest film, left-sided numbness and weakness COMPARISON: March 2019 TECHNIQUE: AP portable chest image was obtained 1634 hours . FINDINGS: Lung volumes are very low. No peripheral mass or consolidation. Since prior imaging the di alysis catheter has been removed and replaced with a left side access catheter. Heart and vasculature are normal. No measurable pleural effusion and no pneumothorax. No acute bony abnormality seen. No a cute aortic findings suspected. IMPRESSION: Limited shallow inspiration exam without acute cardiopulmonary finding.
--- NOTE | 2019-07-15 17:09 | ER ---
Nurse's Notes [facility] Name: Archana Woo Age: 43 yrs Sex: Female : 1975 Arrival Date: 07/15/2019 Time: 15:59 Bed 13 Private MD: Diagnosis: Left sided paresthesia and weakness Presentation: 07/15 15:59 Presenting complaint: EMS states: LEFT SIDED NUMBNESS INCREASING SINCE 0800. Transition bp of care: patient was not received from another setting of care. Onset of symptoms was July 15, 2019 at 08:00. Risk Assessment: Do you want to hurt yourself or someone else? Patient reports no desire to harm self or others. Initial Sepsis Screen: Does the patient meet any 2 criteria? HR > 90 bpm. No. Patient's initial sepsis screen is negative. Does the patient have a suspected source of infection? No. Patient's initial sepsis screen is negative. 15:59 Method Of Arrival: EMS: [facility] bp 15:59 Acuity: TARUN 2 bp Triage Assessment: 16:02 General: Appears in no apparent distress. comfortable, Behavior is cooperative, bp appropriate for age, anxious. Pain: Denies pain. EENT: BLIND AT BASELINE. Neuro: Reports numbness in left arm. Cardiovascular: Rhythm is sinus tachycardia. Respiratory: No deficits noted. GI: No signs and/or symptoms were reported involving the gastrointestinal system. : No signs and/or symptoms were reported regarding the genitourinary system. Derm: No deficits noted. Musculoskeletal: No deficits noted. 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 - Irregular menses bp Historical: - Allergies: 17:51 No Known Allergies; bp - Home Meds: 17:51 Lantus 100 unit/mL Sub-Q soln [Active]; Hydrocodone-Acetaminophen Oral [Active]; bp hydralazine 25 mg Oral tab 1 tab 4 times per day [Active]; furosemide 80 mg Oral tab 1 tab 2 times per day [Active]; docusate sodium 100 mg Oral cap 1 cap once daily [Active]; calcitriol 0.25 mcg Oral cap 1 cap [Active]; - PMHx: 17:51 BLIND; CVA; Depression; Diabetes - NIDDM; GERD; Hyperlipidemia; Hypertension; left arm bp paralysis; neuropathy; THYROID CANCER; TIA; - Immunization history:: Adult Immunizations up to date. - Social history:: Smoking status: Patient/guardian denies using tobacco. - Ebola Screening: : No symptoms or risks identified at this time. Screenin:04 Abuse screen: Denies threats or abuse. Denies injuries from another. Nutritional bp screening: No deficits noted. Tuberculosis screening: No symptoms or risk factors identified. Fall Risk None identified. Assessment: 16:04 General: SEE TRIAGE NOTE. bp 17:09 Reassessment: TRANSFER IN PROCESS. bp 17:52 Reassessment: REPORT TO JONAH LEAHY AT [facility]. TRANSPORT PENDING. bp 19:15 Reassessment: Patient and/or family updated on plan of care and expected duration. Pain aj1 level reassessed. General: Appears in no apparent distress. comfortable, Behavior is calm, cooperative, appropriate for age. Pain: Denies pain. 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 Moves all extremities. Full function Speech is normal, Facial symmetry appears normal, Reports paresthesias in left leg and left arm. Cardiovascular: Patient's skin is warm and dry. Respiratory: Airway is patent Respiratory effort is even, unlabored, Respiratory pattern is regular, symmetrical. GI: No signs and/or symptoms were reported involving the gastrointestinal system. : No signs and/or symptoms were reported regarding the genitourinary system. EENT: No signs and/or symptoms were reported regarding the EENT system. Derm: No signs and/or symptoms reported regarding the dermatologic system. Skin is pink, warm \T\ dry. normal. Musculoskeletal: No signs and/or symptoms reported regarding the musculoskeletal system. Circulation, motion, and sensation intact. Vital Signs: 16:01 BP 133 / 104; Pulse 106; Resp 24; Temp 97.5; Pulse Ox 100% ; Weight 64.5 kg; Height 64 bp in. (162.56 cm); 17:09 BP 115 / 67; Pulse 91; Resp 16; Pulse Ox 99% ; bp 19:15 BP 131 / 69; Pulse 87; Resp 18; Pulse Ox 100% on R/A; aj1 16:01 Body Mass Index 24.41 (64.50 kg, 162.56 cm) bp ED Course: 15:59 Patient arrived in ED. bp 16:01 Triage completed. bp 16:01 Arm band placed on. bp 16:04 Patient has correct armband on for positive identification. Bed in low position. Call bp light in reach. Side rails up X2. 16:15 Jesus Sanford, RN is Primary Nurse. bp 16:20 Griffin Cook MD is Attending Physician. kdr 16:26 EKG done, by ED staff, reviewed by Griffin Cook MD. jb1 17:09 initiated a transfer with Lucrecia from the [facility]. eb 17:10 connected the stroke doctor production underwriter for [facility] with dr. Cook for patient eb transfer consultation. 17:[address] Douglas the hospitalist production underwriter for [facility] with Dr. Cook for eb patient sales planning coordinator. 17:30 administrative approval given by Lucrecia Coffman RN/ patient has been accepted to [facility] Bed 2246/ Dr. Douglas has accepted the patient in transfer/ report to be called to [phone]. 17:39 Inserted saline lock: 22 gauge in right forearm, using aseptic technique. Blood bp collected. 19:15 No provider procedures requiring assistance completed. Patient transferred, IV remains aj1 in place. Administered Medications: No medications were administered Outcome: 17:08 ER care complete, transfer ordered by . kdr 20:02 Transferred by ground EMS Transfer form completed. aj1 20:02 Condition: stable 20:02 Discharge instructions given to patient, family, Instructed on the need for transfer, Demonstrated understanding of instructions. 20:02 Patient left the ED. aj1 Signatures: Dawit Bailey jb1 Emerald Bowens, RN RN aj1 Griffin Cook MD MD kdr Jesus Sanford, ARMOND RN Michelle Johnson
--- NOTE | 2019-07-15 17:10 | EDPHYS ---
Physician Documentation [facility] Name: Archana Woo Age: 43 yrs Sex: Female : 1975 Arrival Date: 07/15/2019 Time: 15:59 Bed 13 Private MD: ED Physician Griffin Cook HPI: 07/15 19:07 This 43 yrs old Female presents to ER via EMS with complaints of Numbness, kdr paresthesia to the left body. 19:07 The patient's problem is reported as paresthesias, in left upper extremity, in left kdr lower extremity, weakness, that is generalized. Onset: The symptoms/episode began/occurred suddenly, this morning, at 08:00. Duration: The episode is continuous, the symptoms became persistent. Context: symptoms became apparent on July 15, 2019, at 08:00. The symptoms are alleviated by nothing. The symptoms are aggravated by nothing. Associated signs and symptoms: The patient has no apparent associated signs or symptoms, Pertinent positives:. Severity of symptoms: At their worst the symptoms were mild in the emergency department the symptoms are unchanged. Patient's baseline: Neuro: alert and fully oriented, Motor: no deficits, Ambulation: walks with assist only. The patient has not experienced similar symptoms in the past. The patient has not recently seen a physician. 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 - Irregular menses bp Historical: - Allergies: 17:51 No Known Allergies; bp - Home Meds: 17:51 Lantus 100 unit/mL Sub-Q soln [Active]; Hydrocodone-Acetaminophen Oral [Active]; bp hydralazine 25 mg Oral tab 1 tab 4 times per day [Active]; furosemide 80 mg Oral tab 1 tab 2 times per day [Active]; docusate sodium 100 mg Oral cap 1 cap once daily [Active]; calcitriol 0.25 mcg Oral cap 1 cap [Active]; - PMHx: 17:51 BLIND; CVA; Depression; Diabetes - NIDDM; GERD; Hyperlipidemia; Hypertension; left arm bp paralysis; neuropathy; THYROID CANCER; TIA; - Immunization history:: Adult Immunizations up to date. - Social history:: Smoking status: Patient/guardian denies using tobacco. - Ebola Screening: : No symptoms or risks identified at this time. ROS: 19:07 Constitutional: Negative for fever, chills, and weight loss, Eyes: Negative for injury, kdr pain, redness, and discharge, Neck: Negative for injury, pain, and swelling, Cardiovascular: Negative for chest pain, palpitations, and edema, Respiratory: Negative for shortness of breath, cough, wheezing, and pleuritic chest pain, Abdomen/GI: Negative for abdominal pain, nausea, vomiting, diarrhea, and constipation, Back: Negative for injury and pain, : Negative for injury, bleeding, discharge, and swelling, MS/Extremity: Negative for injury and deformity, Skin: Negative for injury, rash, and discoloration, Psych: Negative for depression, anxiety, suicide ideation, homicidal ideation, and hallucinations, Allergy/Immunology: Negative for hives, rash, and allergies, Endocrine: Negative for neck swelling, polydipsia, polyuria, polyphagia, and marked weight changes, Hematologic/Lymphatic: Negative for swollen nodes, abnormal bleeding, and unusual bruising. 19:07 Neuro: Positive for paresthesia to the left upper/lower extremities. Exam: 19:07 Constitutional: This is a well developed, well nourished patient who is awake, alert, kdr and in no acute distress. Head/Face: Normocephalic, atraumatic. Eyes: Pupils equal round and reactive to light, extra-ocular motions intact. Lids and lashes normal. Conjunctiva and sclera are non-icteric and not injected. Cornea within normal limits. Periorbital areas with no swelling, redness, or edema. Neck: Trachea midline, no thyromegaly or masses palpated, and no cervical lymphadenopathy. Supple, full range of motion without nuchal rigidity, or vertebral point tenderness. No Meningismus. Chest/axilla: Normal chest wall appearance and motion. Nontender with no deformity. No lesions are appreciated. Left upper chest wall dialysis cath in good condition Cardiovascular: Regular rate and rhythm with a normal S1 and S2. No gallops, murmurs, or rubs. Normal PMI, no JVD. No pulse deficits. Respiratory: Lungs have equal breath sounds bilaterally, clear to auscultation and percussion. No rales, rhonchi or wheezes noted. No increased work of breathing, no retractions or nasal flaring. Abdomen/GI: Soft, non-tender, with normal bowel sounds. No distension or tympany. No guarding or rebound. No evidence of tenderness throughout. Back: No spinal tenderness. No costovertebral tenderness. Full range of motion. Skin: Warm, dry with normal turgor. Normal color with no rashes, no lesions, and no evidence of cellulitis. MS/ Extremity: Pulses equal, no cyanosis. Neurovascular intact. Full, normal range of motion. Psych: Awake, alert, with orientation to person, place and time. Behavior, mood, and affect are within normal limits. 19:07 Neuro: Orientation: is normal, Mentation: is normal, Cerebellar function: Sensation: The patient has peripheral neuropathy secondary to DM. The patient had generally accurate sharp dull perception and proprioception was intact. Vital Signs: 16:01 BP 133 / 104; Pulse 106; Resp 24; Temp 97.5; Pulse Ox 100% ; Weight 64.5 kg; Height 64 bp in. (162.56 cm); 17:09 BP 115 / 67; Pulse 91; Resp 16; Pulse Ox 99% ; bp 19:15 BP 131 / 69; Pulse 87; Resp 18; Pulse Ox 100% on R/A; aj1 16:01 Body Mass Index 24.41 (64.50 kg, 162.56 cm) bp MDM: 17:08 Patient medically screened. kdr 19:07 Data reviewed: vital signs, nurses notes, lab test result(s), radiologic studies. kdr Counseling: I had a detailed discussion with the patient and/or guardian regarding: the historical points, exam findings, and any diagnostic results supporting the discharge/admit diagnosis, lab results, radiology results, the need to transfer to another facility. 07/15 16:21 Order name: Basic Metabolic Panel [facility] 07/15 16:21 Order name: CBC with Diff [facility] 07/15 16:21 Order name: Protime (+inr) [facility] 07/15 16:21 Order name: Ptt, Activated [facility] 07/15 16:37 Order name: CBC with Automated Diff; Complete Time: 17:12 [facility] 07/15 16:51 Order name: Basic Metabolic Panel; Complete Time: 17:12 [facility]MS 07/15 16:21 Order name: CT Stroke Brain w/o Contrast [facility] 07/15 16:21 Order name: Stroke CXR 1 View [facility] 07/15 16:21 Order name: EKG; Complete Time: 16:22 [facility] 07/15 16:21 Order name: Accucheck; Complete Time: 16:24 [facility] 07/15 16:52 Order name: Protime (+INR); Complete Time: 17:12 [facility] 07/15 16:52 Order name: CT; Complete Time: 17:12 [facility] 07/15 16:57 Order name: PTT, Activated Partial Thromb; Complete Time: 17:12 [facility] 07/15 16:58 Order name: RAD; Complete Time: 17:12 [facility] 07/15 16:21 Order name: Cardiac monitoring; Complete Time: 16:24 [facility] 07/15 16:21 Order name: EKG - Nurse/Tech; Complete Time: 16:24 kdr 07/15 16:21 Order name: IV Saline Lock; Complete Time: 16:24 [facility] 07/15 16:21 Order name: Labs collected and sent; Complete Time: 16:24 [facility] 07/15 16:21 Order name: NPO; Complete Time: 16:25 kdr 07/15 16:21 Order name: O2 Per Protocol; Complete Time: 16:25 [facility] 07/15 16:21 Order name: O2 Sat Monitoring; Complete Time: 16:25 [facility] 07/15 16:21 Order name: Stroke Swallow Screen; Complete Time: 16:25 kdr Administered Medications: No medications were administered Disposition: 07/15/19 17:[address] [facility]. Diagnosis is Left sided paresthesia and weakness. - Reason for transfer: Higher level of care. - Accepting physician is . - Condition is Fair. - Problem is new. - Symptoms are unchanged. Signatures: Dispatcher [employer] [facility] Emerald Bowens RN RN aj1 Griffin Cook MD MD kdr Jesus Sanford RN RN bp Corrections: (The following items were deleted from the chart) 20:02 17:08 07/15/2019 17:[address] [facility]. Diagnosis is aj1 Left sided paresthesia and weakness. Reason for transfer: Higher level of care. Accepting physician is . Condition is Fair. Problem is new. Symptoms are unchanged. kdr
[2019-07-16 01:55] VITALS: TEMP 97.6
[2019-07-16 01:58] VITALS: BP 137/76; O2SAT 99
--- NOTE | 2019-07-16 08:24 | EKG ---
Test Date: 2019-07-15 Test Time: 16:22:24 Last Repairer Helper: ALESSIO MEASUREMENT RESULTS: Intervals: Rate: 95 SD: 136 QRSD: 72 QT: 362 QTc: 454 [place]: P: 72 SD: 136 QRS: 34 T: 69 INTERPRETIVE STATEMENTS: Normal sinus rhythm normal ECG Compared to ECG 06/01/2019 18:26:3 no significant change from previous ECG Electronically Signed On 07-16-19 08:24:16 RARE/ENDANGERED SPECIES SPECIALIST by Souleymane Julio
== END 2019-07-15 20:02 | disposition short-term general hospital (02) ==
LOC: ER 15:56
DX: R53.1 Weakness (principal); I10 Essential (primary) hypertension; E11.9 Type 2 diabetes mellitus without complications; F32.9 Major depressive disorder, single episode, unspecified; Z79.4 Long term (current) use of insulin; Z86.73 Personal history of transient ischemic attack (TIA), and cerebral infarction without residual deficits; Z85.850 Personal history of malignant neoplasm of thyroid
CPT/HCPCS: 36415; 70450; 71045; 80048; 85025; 85610; 85730; 93005; 99285

== ENCOUNTER 2019-07-29 18:10 | Emergency (ER) | payer OTHER ==
--- OUTSIDE RECORDS SUMMARY | 2019-07-29 18:15 | XMS REPORT ---
:1975 [facility] [address] [place] [address] [address] [place] [address] Care Team Providers Name Role Phone GINI MCDANIEL Unavailable Unavailable ARON EDWARDS Unavailable Unavailable Problems This patient has no known problems. Allergies, Adverse Reactions, Alerts This patient has no known allergies or adverse reactions. Medications This patient has no known medications. Procedures and Interventions Procedure Date / Time Performed Performing Clinician [id number] 2019-05-18 00:00:00 [id number] 2019-05-18 00:00:00 [id number] 2019-05-18 00:00:00 Encounters Start End Encounter Admission Attending Care Care Encounter Date/Time Date/Time Type Type Clinicians Facility Department ID 2019-04-12 Inpatient [facility] [id number] 13:57:46 Results Test Description Test Time Test Comments Text Results Atomic Results Result Comments RAD, CHEST, 1 2019-07-18 11:27:00 Reason for exam:->r/o FINAL REPORT PATIENT ID: VIEW, NON DEPT pneumoniaShould this be [id number] RAD, CHEST, 1 performed at the VIEW, NON DEPT INDICATION: bedside?->Yes r/o pneumonia COMPARISON: July 16, 2019 FINDINGS: Portable frontal view of the chest. IMPRESSION: Support Lines: Stable left IJ dual-lumen central venous catheter. Lungs and pleura: Lungs are clear. No effusion. No pneumothorax.Heart and mediastinum: Stable contours. Additional findings: None. Signed: JR Mccollum Robert MDReport Verified Date/Time: 07/18/2019 11:27:35 Reading Location: [facility] Radiology Reading Room -GLUCOSE METER 2019-07-18 08:34:00 Test Item Value Reference Range Comments POC-GLUCOSE METER (BEAKER) 126 mg/dL 70-110 : TESTED AT [facility] [address] (test jvow=5266) [place], [address]: [employer] Operator/Construction Executive [id number] for Baldomero Kuo BASIC METABOLIC [id number] 06:56:00 Test Item Value Reference Range Comments SODIUM (BEAKER) (test 134 meq/L 136-145 fvog=434) POTASSIUM (BEAKER) (test 5.0 meq/L 3.5-5.1 mbib=796) CHLORIDE (BEAKER) (test 103 meq/L 98-107 udkh=068) CO2 (BEAKER) (test 25 meq/L 22-29 rfew=887) BLOOD UREA NITROGEN 28 mg/dL 7-21 (BEAKER) (test coic=040) CREATININE (BEAKER) (test 5.40 mg/dL 0.57-1.25 nzan=385) GLUCOSE RANDOM (BEAKER) 146 mg/dL 70-105 (test iotk=802) CALCIUM (BEAKER) (test 8.8 mg/dL 8.4-10.2 qqwv=221) EGFR (BEAKER) (test 9 mL/min/1.73 sq m ESTIMATED GFR IS NOT ymrs=8973) ACCURATE CREATININE CLEARANCE IN PREDICTING GLOMERULAR FILTRATION RATE. ESTIMATED GFR IS NOT APPLICABLE FOR DIALYSIS PATIENTS. [id number] 06:45:00 Test Item Value Reference Range Comments PHOSPHORUS (BEAKER) (test omkz=029) 4.6 mg/dL 2.3-4.7 [id number] 06:45:00 Test Item Value Reference Range Comments MAGNESIUM (BEAKER) (test clko=583) 2.0 mg/dL 1.6-2.6 CBC W/PLT COUNT & AUTO [id number] 05:35:00 Test Item Value Reference Range Comments WHITE BLOOD CELL COUNT (BEAKER) (test znhb=554) 13.0 K/ L 3.5-10.5 RED BLOOD CELL COUNT (BEAKER) (test zyiv=729) 3.80 M/ L 3.93-5.22 HEMOGLOBIN (BEAKER) (test pyrf=740) 11.3 GM/DL 11.2-15.7 HEMATOCRIT (BEAKER) (test jois=528) 35.2 % 34.1-44.9 MEAN CORPUSCULAR VOLUME (BEAKER) (test rmsw=904) 92.6 fL 79.4-94.8 MEAN CORPUSCULAR HEMOGLOBIN (BEAKER) (test 29.7 pg 25.6-32.2 vatd=353) MEAN CORPUSCULAR HEMOGLOBIN CONC (BEAKER) (test 32.1 GM/DL 32.2-35.5 vgxg=884) RED CELL DISTRIBUTION WIDTH (BEAKER) (test 13.6 % 11.7-14.4 cwgs=198) PLATELET COUNT (BEAKER) (test azgd=086) 233 K/CU MM 150-450 MEAN PLATELET VOLUME (BEAKER) (test ojdz=364) 9.5 fL 9.4-12.3 NUCLEATED RED BLOOD CELLS (BEAKER) (test 0 /100 WBC 0-0 dxpe=015) NEUTROPHILS RELATIVE PERCENT (BEAKER) (test 70 % pxbs=863) LYMPHOCYTES RELATIVE PERCENT (BEAKER) (test 20 % oebu=986) MONOCYTES RELATIVE PERCENT (BEAKER) (test 7 % bnhc=676) EOSINOPHILS RELATIVE PERCENT (BEAKER) (test 2 % hlyo=492) BASOPHILS RELATIVE PERCENT (BEAKER) (test 1 % jryb=470) NEUTROPHILS ABSOLUTE COUNT (BEAKER) (test 9.09 K/ L 1.56-6.13 jgby=916) LYMPHOCYTES ABSOLUTE COUNT (BEAKER) (test 2.65 K/ L 1.18-3.74 vrfg=798) MONOCYTES ABSOLUTE COUNT (BEAKER) (test 0.93 K/ L 0.24-0.36 rhhq=248) EOSINOPHILS ABSOLUTE COUNT (BEAKER) (test 0.24 K/ L 0.04-0.36 fwnb=364) BASOPHILS ABSOLUTE COUNT (BEAKER) (test 0.07 K/ L 0.01-0.08 pexu=338) IMMATURE GRANULOCYTES-RELATIVE PERCENT (BEAKER) 0 % 0-1 (test tdou=2175) PROTHROMBIN [id number] 05:24:00 Test Item Value Reference Range Comments PROTIME (BEAKER) (test kzxi=992) 12.2 seconds 11.9-14.2 INR (BEAKER) (test tigz=384) 1.0 <=5.9 Effective 01/12/2019: PT Reference Range ChangeNew: 11.9-14.2 Previous: 11.7- 14.7RECOMMENDED COUMADIN/WARFARIN INR THERAPY RANGESSTANDARD DOSE: 2.0-3.0 Includes: PROPHYLAXIS for venous thrombosis, systemic embolization; TREATMENT for venous thrombosis and/or pulmonary embolus.HIGH RISK: Target INR is2.5-3.5 for patients wiht mechanical heart valves.POCT-GLUCOSE [id number] 21:08:00 Test Item Value Reference Range Comments POC-GLUCOSE METER (BEAKER) 191 mg/dL 70-110 : TESTED AT [address] (test lcmw=7670) [place], [address]: [employer] Operator/Construction Executive [id number] for Keith Bowens POCT-GLUCOSE [id number] 17:20:00 Test Item Value Reference Range Comments POC-GLUCOSE METER (BEAKER) 168 mg/dL 70-110 : TESTED AT [address] (test omtp=6388) [facility], [address]: [employer] Operator/Construction Executive [id number] for FATUMA MAVIS POCT-GLUCOSE [id number] 12:49:00 Test Item Value Reference Range Comments POC-GLUCOSE METER (BEAKER) 221 mg/dL 70-110 : TESTED AT [address] (test smxk=7703) [facility], [address]: [employer] Machine Operator/Construction Executive [id number] for MAVIS BURRIS SCREEN, [id number] 11:54:00 Test Item Value Reference Range Comments TEST URINE (BEAKER) (test ltmc=776) Negative POCT-GLUCOSE [id number] 09:11:00 Test Item Value Reference Range Comments POC-GLUCOSE METER (BEAKER) 112 mg/dL 70-110 : TESTED AT [address] (test mscb=1296) [facility], [address]: [employer] Machine Operator/Construction Executive [id number] for MAVIS BURRIS BASIC METABOLIC [id number] 06:50:00 Test Item Value Reference Range Comments SODIUM (BEAKER) (test 136 meq/L 136-145 nkzc=169) POTASSIUM (BEAKER) (test 4.8 meq/L 3.5-5.1 vgwu=100) CHLORIDE (BEAKER) (test 103 meq/L 98-107 ldev=521) CO2 (BEAKER) (test 26 meq/L 22-29 ifoa=752) BLOOD UREA NITROGEN 16 mg/dL 7-21 (BEAKER) (test norh=191) CREATININE (BEAKER) (test 3.77 mg/dL 0.57-1.25 wknp=028) GLUCOSE RANDOM (BEAKER) 120 mg/dL 70-105 (test dieg=917) CALCIUM (BEAKER) (test 8.9 mg/dL 8.4-10.2 xcue=341) EGFR (BEAKER) (test 13 mL/min/1.73 sq m ESTIMATED GFR IS NOT mkka=0855) ACCURATE CREATININE CLEARANCE IN PREDICTING GLOMERULAR FILTRATION RATE. ESTIMATED GFR IS NOT APPLICABLE FOR DIALYSIS PATIENTS. [id number] 06:38:00 Test Item Value Reference Range Comments PHOSPHORUS (BEAKER) (test xoig=628) 3.9 mg/dL 2.3-4.7 [id number] 06:38:00 Test Item Value Reference Range Comments MAGNESIUM (BEAKER) (test gprj=160) 1.9 mg/dL 1.6-2.6 PROTHROMBIN TIME/[id number] 06:12:00 Test Item Value Reference Range Comments PROTIME (BEAKER) (test zevj=057) 12.1 seconds 11.9-14.2 INR (BEAKER) (test cexr=371) 0.9 <=5.9 Effective 01/12/2019: PT Reference Range ChangeNew: 11.9-14.2 Previous: 11.7- 14.7RECOMMENDED COUMADIN/WARFARIN INR THERAPY RANGESSTANDARD DOSE: 2.0-3.0 Includes: PROPHYLAXIS for venous thrombosis, systemic embolization; TREATMENT for venous thrombosis and/or pulmonary embolus.HIGH RISK: Target INR is2.5-3.5 for patients wiht mechanical heart valves.CBC W/PLT COUNT & AUTO [id number] 06:06:00 Test Item Value Reference Range Comments WHITE BLOOD CELL COUNT (BEAKER) (test vrxh=021) 8.3 K/ L 3.5-10.5 RED BLOOD CELL COUNT (BEAKER) (test vnxu=107) 3.62 M/ L 3.93-5.22 HEMOGLOBIN (BEAKER) (test cjgm=566) 11.0 GM/DL 11.2-15.7 HEMATOCRIT (BEAKER) (test wifb=050) 33.0 % 34.1-44.9 MEAN CORPUSCULAR VOLUME (BEAKER) (test xffs=666) 91.2 fL 79.4-94.8 MEAN CORPUSCULAR HEMOGLOBIN (BEAKER) (test 30.4 pg 25.6-32.2 quqk=454) MEAN CORPUSCULAR HEMOGLOBIN CONC (BEAKER) (test 33.3 GM/DL 32.2-35.5 uajr=291) RED CELL DISTRIBUTION WIDTH (BEAKER) (test 13.9 % 11.7-14.4 oimj=851) PLATELET COUNT (BEAKER) (test spvl=464) 228 K/CU MM 150-450 MEAN PLATELET VOLUME (BEAKER) (test vlra=662) 9.5 fL 9.4-12.3 NUCLEATED RED BLOOD CELLS (BEAKER) (test 0 /100 WBC 0-0 uzmk=794) NEUTROPHILS RELATIVE PERCENT (BEAKER) (test 60 % yqli=930) LYMPHOCYTES RELATIVE PERCENT (BEAKER) (test 30 % wrij=800) MONOCYTES RELATIVE PERCENT (BEAKER) (test 8 % qokn=463) EOSINOPHILS RELATIVE PERCENT (BEAKER) (test 2 % embi=722) BASOPHILS RELATIVE PERCENT (BEAKER) (test 1 % tsmg=722) NEUTROPHILS ABSOLUTE COUNT (BEAKER) (test 4.92 K/ L 1.56-6.13 upcz=449) LYMPHOCYTES ABSOLUTE COUNT (BEAKER) (test 2.43 K/ L 1.18-3.74 bymz=997) MONOCYTES ABSOLUTE COUNT (BEAKER) (test 0.68 K/ L 0.24-0.36 rhgb=581) EOSINOPHILS ABSOLUTE COUNT (BEAKER) (test 0.15 K/ L 0.04-0.36 jjjv=840) BASOPHILS ABSOLUTE COUNT (BEAKER) (test 0.05 K/ L 0.01-0.08 fsmd=409) IMMATURE GRANULOCYTES-RELATIVE PERCENT (BEAKER) 0 % 0-1 (test cjsz=7820) [id number] 04:27:00 Test Item Value Reference Range Comments RPR SCREEN (BEAKER) (test kigl=927) Nonreactive Nonreactive MR, MRA, BRAIN, WITHOUT [id number] 03:28:00Reason for exam:-> StrokeWhat is the patient's sedation requirement?->No SedationFINAL REPORT MR, BRAIN, WITHOUT CONTRAST, MR, MRA, NECK, WITHOUT IV CONTRAST,MR, MRA, BRAIN, WITHOUT CONTRAST INDICATION: Stroke, follow upStroke TECHNIQUE: Multiplanar, multisequence MR images of the brain. 3-D time of flight MRA of the cranial and cervical circulation. 2-D time of flight MRA of the neck. 3D MIP angiographic post-processing was performed. Stenosis evaluationutilized NASCET criteria. COMPARISON: MRI brain March 17, 2017 FINDINGS: MRI BRAIN: Faint curvilinear DWI hyperintensity involving the left finley radiata, right internal capsule and right thalamus posterior margin associated with T2 FLAIR hyperintensity. No definite diminished ADC. Moderate cerebralwhite matter T2 FLAIR hyperintensities. Pontine T2 hyperintensities noted. Scattered remote infarctsare present. Moderate brain parenchymal volume loss with proportional prominence. No hydrocephalus. No acute intracranial hemorrhage or mass or midline shift. Bilateral globe deformities. Mild paranasal sinus callosal thickening. MRA BRAIN:Internal carotid arteries: Patent. Bottles supraclinoid segment moderate stenoses. Bilateral posterior communicating arteries are present.Middle cerebral arteries:Patent to distal branches.Anterior cerebral arteries: High-grade stenosis of right A1 segment. Patent left A1 segment. Patent anterior communicating artery distal ICAs.Basilar system: Patent vertebrobasilar system.Posterior cerebral arteries: Patent beyond the quadrigeminal segments.Additional findings: None. MRA NECK: Common carotid arteries: Origins are not imaged. Otherwise patent. Bifurcations : No flow-limiting stenosis. Cervical internal carotid arteries: No flow limiting stenosis.Vertebral arteries: Origins not imaged, otherwise patent. IMPRESSION:Faint DWI hyperintensity involving the left finley radiata, right internal capsule and right posterior thalamus suggestive of subacute ischemia versus T2 shine through artifact. Moderate chronic angiopathic ischemic changes. Bilateral intracranial ICA supraclinoid segment moderate focal stenoses and severe stenosis of right WILLIAM, A1 segment versus hypoplasia. Patent bilateral cervical ICAs and vertebral arteries. Signed: Yg Conley MDReport Verified Date/Time: 07/17/2019 03:28:33 MR, MRA, NECK, WITHOUT IV [id number] 03:28:00FINAL REPORT MR, BRAIN, WITHOUT CONTRAST, MR, MRA, NECK, WITHOUT IV CONTRAST,MR, MRA, BRAIN, WITHOUT CONTRAST INDICATION: Stroke, follow upStroke TECHNIQUE: Multiplanar, multisequence MR images of the brain. 3-D time of flight MRA of the cranial and cervical circulation. 2-D time of flight MRA of the neck. 3D MIP angiographic post-processing was performed. Stenosis evaluationutilized NASCET criteria. COMPARISON: MRI brain March 17, 2017 FINDINGS: MRI BRAIN: Faint curvilinear DWI hyperintensity involving the left finley radiata, right internal capsule and right thalamus posterior margin associated with T2 FLAIR hyperintensity. No definite diminished ADC. Moderate cerebralwhite matter T2 FLAIR hyperintensities. Pontine T2 hyperintensities noted. Scattered remote infarctsare present. Moderate brain parenchymal volume loss with proportional prominence. No hydrocephalus. No acute intracranial hemorrhage or mass or midline shift. Bilateral globe deformities. Mild paranasal sinus callosal thickening. MRA BRAIN:Internal carotid arteries: Patent. Bottles supraclinoid segment moderate stenoses. Bilateral posterior communicating arteries are present.Middle cerebral arteries:Patent to distal branches.Anterior cerebral arteries: High-grade stenosis of right A1 segment. Patent left A1 segment. Patent anterior communicating artery distal ICAs.Basilar system: Patent vertebrobasilar system.Posterior cerebral arteries:Patent beyond the quadrigeminal segments.Additional findings: None. MRA NECK:Common carotid arteries: Origins are not imaged. Otherwise patent. Bifurcations: No flow- limiting stenosis. Cervical internal carotid arteries: No flow limiting stenosis.Vertebral arteries: Origins not imaged, otherwise patent. IMPRESSION: Faint DWI hyperintensity involving the left finley radiata, right internal capsule and right posterior thalamus suggestive of subacute ischemia versus T2 shine through artifact. Moderate chronic angiopathic ischemic changes. Bilateral intracranial ICA supraclinoid segment moderate focal stenoses and severe stenosis of right WILLIAM, A1 segment versus hypoplasia. Patent bilateral cervical ICAs and vertebral arteries. Signed: Yg Conley MDReport Verified Date/Time: 07/17/2019 03:28:33 MR, BRAIN, WITHOUT [id number] 03:28: 00Reason for exam:->StrokeWhat is the patient's sedation requirement?->No SedationFINAL REPORT MR, BRAIN, WITHOUT CONTRAST, MR, MRA , NECK, WITHOUT IV CONTRAST,MR, MRA, BRAIN, WITHOUT CONTRAST INDICATION: Stroke , follow upStroke TECHNIQUE: Multiplanar, multisequence MR images of the brain. 3-D time of flight MRA of the cranial and cervical circulation. 2-D time of flight MRA of the neck. 3D MIP angiographic post-processing was performed. Stenosis evaluationutilized NASCET criteria. COMPARISON: MRI brain March 17, 2017 FINDINGS: MRI BRAIN: Faint curvilinear DWI hyperintensity involving the left finley radiata, right internal capsule and right thalamus posterior margin associated with T2 FLAIR hyperintensity. No definite diminished ADC. Moderate cerebralwhite matter T2 FLAIR hyperintensities. Pontine T2 hyperintensities noted. Scattered remote infarctsare present. Moderate brain parenchymal volume loss with proportional prominence. No hydrocephalus. No acute intracranial hemorrhage or mass or midline shift. Bilateral globe deformities. Mild paranasal sinus callosal thickening. MRA BRAIN:Internal carotid arteries: Patent. Bottles supraclinoid segment moderate stenoses. Bilateral posterior communicating arteries are present.Middle cerebral arteries:Patent to distal branches.Anterior cerebral arteries: High-grade stenosis of right A1 segment. Patent left A1 segment. Patent anterior communicating artery distal ICAs.Basilar system: Patent vertebrobasilar system.Posterior cerebral arteries: Patent beyond the quadrigeminal segments.Additional findings: None. MRA NECK: Common carotid arteries: Origins are not imaged. Otherwise patent. Bifurcations : No flow-limiting stenosis. Cervical internal carotid arteries: No flow limiting stenosis.Vertebral arteries: Origins not imaged, otherwise patent. IMPRESSION:Faint DWI hyperintensity involving the left finley radiata, right internal capsule and right posterior thalamus suggestive of subacute ischemia versus T2 shine through artifact. Moderate chronic angiopathic ischemic changes. Bilateral intracranial ICA supraclinoid segment moderate focal stenoses and severe stenosis of right WILLIAM, A1 segment versus hypoplasia. Patent bilateral cervical ICAs and vertebral arteries. Signed: Yg Conley MDReport Verified Date/Time: 07/17/2019 03:28:33 POCT-GLUCOSE [id number] 21: 16:00 Test Item Value Reference Range Comments POC-GLUCOSE METER (BEAKER) 143 mg/dL 70-110 : TESTED AT [address] (test hhbi=3522) [place] [address]: [employer] Operator/Construction Executive [id number] for JANELL VIVAR POCT-GLUCOSE [id number] 17:33:00 Test Item Value Reference Range Comments POC-GLUCOSE METER (BEAKER) 108 mg/dL 70-110 : TESTED AT [facility] [address] [facility] [place] (test imyo=2270) [place] [facility], [address]: [employer] Machine Operator/Construction Executive [id number] for TAVON VANEGAS POCT-GLUCOSE [id number] 17:25:00 Test Item Value Reference Range Comments POC-GLUCOSE METER (BEAKER) 155 mg/dL 70-110 : TESTED AT [address] (test oiym=8188) [facility], [address]: [employer] Machine Operator/Construction Executive [id number] for SIMON SALMON HEPATITIS B SURFACE [id number] 14:30:00 Test Item Value Reference Range Comments HEPATITIS B SURFACE ANTIGEN (2) (BEAKER) (test Nonreactive Nonreactive hhpe=3893) POCT-GLUCOSE [id number] 12:17:00 Test Item Value Reference Range Comments POC-GLUCOSE METER (BEAKER) 146 mg/dL 70-110 : TESTED AT [address] (test xwoy=7789) [facility], [address]: [employer] Machine Operator/Construction Executive [id number] for MAVIS BURRIS BASIC METABOLIC [id number] 09:26:00 Test Item Value Reference Range Comments SODIUM (BEAKER) (test 135 meq/L 136-145 gwvm=653) POTASSIUM (BEAKER) (test 5.0 meq/L 3.5-5.1 ihsw=439) CHLORIDE (BEAKER) (test 104 meq/L 98-107 gthc=306) CO2 (BEAKER) (test 21 meq/L 22-29 wzob=023) BLOOD UREA NITROGEN 46 mg/dL 7-21 (BEAKER) (test tabm=146) CREATININE (BEAKER) (test 6.99 mg/dL 0.57-1.25 awer=836) GLUCOSE RANDOM (BEAKER) 91 mg/dL 70-105 (test yuvx=995) CALCIUM (BEAKER) (test 8.6 mg/dL 8.4-10.2 ksrg=747) EGFR (BEAKER) (test 6 mL/min/1.73 sq m ESTIMATED GFR IS NOT gnbq=8009) ACCURATE CREATININE CLEARANCE IN PREDICTING GLOMERULAR FILTRATION RATE. ESTIMATED GFR IS NOT APPLICABLE FOR DIALYSIS PATIENTS. POCT-GLUCOSE [id number] 08:27:00 Test Item Value Reference Range Comments POC-GLUCOSE METER (BEAKER) 106 mg/dL 70-110 : TESTED AT [facility] [address] [facility] [place] (test lsak=2450) [place] [facility], [address]: [employer] Operator/Construction Executive [id number] for SIMON SALMON POCT-GLUCOSE [id number] 07:46:00 Test Item Value Reference Range Comments POC-GLUCOSE METER (BEAKER) 171 mg/dL 70-110 : TESTED AT [facility] [address] [facility] [place] (test yekj=2270) [facility], [address]: [employer] Machine Operator/Construction Executive [id number]=[id number] for YASMINE SANABRIA RAD, CHEST, 1 VIEW, NON [id number] 07:36:00Reason for exam:-> baselineShould this be performed at the bedside?->YesFINAL REPORT TECHNIQUE: Frontal view of the chest. INDICATION: baseline. COMPARISON: None. FINDINGS: LINES/TUBES: Left IJ tunneled central venous catheter with tip in the low right atrium. LUNGS: Low lung volumes. No consolidation or pulmonary edema. PLEURA: No pneumothorax or significant pleural effusion. HEART AND MEDIASTINUM: The cardiomediastinal silhouette is within normal limits. SOFT TISSUES AND BONES: Cholecystomy clips in the right quadrant. IMPRESSION: No acute cardiopulmonary abnormalities. Tunneled left IJ central venous catheter has its tip in the low right atrium, near the tricuspid valve. Low lung volumes. Signed: Swapnil Chery MDReport Verified Date/Time: 2018 07:36:01 Reading Location: [facility] B1 C013Y CT Body Reading Room HEMOGLOBIN [id number] 06:42:00 Test Item Value Reference Range Comments HEMOGLOBIN A1C (BEAKER) (test jvfd=954) 9.5 % 4.3-6.1 BASIC METABOLIC [id number] 06:27:00 Test Item Value Reference Range Comments SODIUM (BEAKER) (test 131 meq/L 136-145 rscw=305) POTASSIUM (BEAKER) (test 6.5 meq/L 3.5-5.1 No hemolysis zfme=379) CHLORIDE (BEAKER) (test 100 meq/L 98-107 prqo=284) CO2 (BEAKER) (test 23 meq/L 22-29 hzdq=379) BLOOD UREA NITROGEN 45 mg/dL 7-21 (BEAKER) (test nszo=112) CREATININE (BEAKER) (test 6.82 mg/dL 0.57-1.25 evwi=488) GLUCOSE RANDOM (BEAKER) 535 mg/dL 70-105 (test rhyf=959) CALCIUM (BEAKER) (test 8.2 mg/dL 8.4-10.2 nslt=475) EGFR (BEAKER) (test 7 mL/min/1.73 sq m ESTIMATED GFR IS NOT ugmc=8142) ACCURATE CREATININE CLEARANCE IN PREDICTING GLOMERULAR FILTRATION RATE. ESTIMATED GFR IS NOT APPLICABLE FOR DIALYSIS PATIENTS. HIV-1 ANTIGEN WITH HIV-1/2 [id number] 05:52:00 Test Item Value Reference Range Comments HIV-1 ANTIGEN WITH HIV 1\T\2 ANTIBODY (2) Nonreactive Nonreactive (BEAKER) (test sjbp=6425) POCT-GLUCOSE [id number] 05:38:00 Test Item Value Reference Range Comments POC-GLUCOSE METER (BEAKER) 420 mg/dL 70-110 : Notified RN/MD: TESTED AT (test bkcf=8629) [facility] [address] [facility], [address]: [employer] Operator/Construction Executive HJ=[id number] for YASMINE SANABRIA TSH/FREE T4 IF [id number] 05:11:00 Test Item Value Reference Range Comments THYROID STIMULATING HORMONE (BEAKER) (test 0.87 uIU/mL 0.35-4.94 qmaf=170) VITAMIN B12 AND [id number] 05:11:00 Test Item Value Reference Range Comments VITAMIN B12 (BEAKER) (test jygb=664) 525 pg/mL 213-816 FOLATE (BEAKER) (test aqzo=771) 6.5 ng/mL >=7.0 BASIC METABOLIC [id number] 04:57:00 Test Item Value Reference Range Comments SODIUM (BEAKER) (test 130 meq/L 136-145 fmog=268) POTASSIUM (BEAKER) (test 6.7 meq/L 3.5-5.1 No hemolysis xedr=711) CHLORIDE (BEAKER) (test 99 meq/L 98-107 plpl=457) CO2 (BEAKER) (test 23 meq/L 22-29 yvhi=880) BLOOD UREA NITROGEN 44 mg/dL 7-21 (BEAKER) (test zgii=839) CREATININE (BEAKER) (test 6.74 mg/dL 0.57-1.25 aext=047) GLUCOSE RANDOM (BEAKER) 616 mg/dL 70-105 (test fdzw=980) CALCIUM (BEAKER) (test 8.2 mg/dL 8.4-10.2 wfsp=867) EGFR (BEAKER) (test 7 mL/min/1.73 sq m ESTIMATED GFR IS NOT scik=4348) ACCURATE CREATININE CLEARANCE IN PREDICTING GLOMERULAR FILTRATION RATE. ESTIMATED GFR IS NOT APPLICABLE FOR DIALYSIS PATIENTS. [id number] 04:47:00 Test Item Value Reference Range Comments PHOSPHORUS (BEAKER) (test dmqb=360) 5.5 mg/dL 2.3-4.7 [id number] 04:47:00 Test Item Value Reference Range Comments MAGNESIUM (BEAKER) (test sqgc=275) 2.0 mg/dL 1.6-2.6 LIPID [id number] 04:47:00 Test Item Value Reference Range Comments TRIGLYCERIDES (BEAKER) (test gugg=900) 100 mg/dL CHOLESTEROL (BEAKER) (test bxov=091) 177 mg/dL HDL CHOLESTEROL (BEAKER) (test cglu=677) 48 mg/dL LDL CHOLESTEROL CALCULATED (BEAKER) (test 109 mg/dL ajwu=578) Triglyceride Reference Range: Low Risk <150 Borderline 150- 199 High Risk 200-499 Very High Risk >=500Cholesterol Reference Range: Low Risk <200 Borderline 200-239 High Risk > 240HDL Cholesterol Reference Range: Low Risk >=60 High Risk <40LDL Cholesterol Reference Range: Optimal <100 Near Optimal 100-129 Borderline 130-159 High 160-189 Very High >=190HEPATIC FUNCTION [id number] 04:47:00 Test Item Value Reference Range Comments TOTAL PROTEIN (BEAKER) (test avkk=457) 6.3 gm/dL 6.0-8.3 ALBUMIN (BEAKER) (test erld=2398) 3.0 g/dL 3.5-5.0 BILIRUBIN TOTAL (BEAKER) (test oeoi=043) 0.4 mg/dL 0.2-1.2 BILIRUBIN DIRECT (BEAKER) (test hzzq=523) 0.2 mg/dL 0.1-0.5 ALKALINE PHOSPHATASE (BEAKER) (test iiqm=749) 182 U/L 40-150 AST (SGOT) (BEAKER) (test jjyx=809) 63 U/L 5-34 ALT (SGPT) (BEAKER) (test ftas=571) 99 U/L 6-55 PROTHROMBIN [id number] 04:11:00 Test Item Value Reference Range Comments PROTIME (BEAKER) (test tjfo=823) 12.3 seconds 11.9-14.2 INR (BEAKER) (test xtko=407) 1.0 <=5.9 Effective 01/12/2019: PT Reference Range ChangeNew: 11.9-14.2 Previous: 11.7- 14.7RECOMMENDED COUMADIN/WARFARIN INR THERAPY RANGESSTANDARD DOSE: 2.0-3.0 Includes: PROPHYLAXIS for venous thrombosis, systemic embolization; TREATMENT for venous thrombosis and/or pulmonary embolus.HIGH RISK: Target INR is2.5-3.5 for patients wiht mechanical heart valves.CBC W/PLT COUNT & AUTO [id number] 04:03:00 Test Item Value Reference Range Comments WHITE BLOOD CELL COUNT (BEAKER) (test jrou=298) 6.9 K/ L 3.5-10.5 RED BLOOD CELL COUNT (BEAKER) (test fluf=017) 3.60 M/ L 3.93-5.22 HEMOGLOBIN (BEAKER) (test udpk=473) 10.7 GM/DL 11.2-15.7 HEMATOCRIT (BEAKER) (test yawt=562) 33.5 % 34.1-44.9 MEAN CORPUSCULAR VOLUME (BEAKER) (test tuhe=719) 93.1 fL 79.4-94.8 MEAN CORPUSCULAR HEMOGLOBIN (BEAKER) (test 29.7 pg 25.6-32.2 znrx=509) MEAN CORPUSCULAR HEMOGLOBIN CONC (BEAKER) (test 31.9 GM/DL 32.2-35.5 fwoj=006) RED CELL DISTRIBUTION WIDTH (BEAKER) (test 13.8 % 11.7-14.4 hgca=139) PLATELET COUNT (BEAKER) (test qgzz=348) 235 K/CU MM 150-450 MEAN PLATELET VOLUME (BEAKER) (test hfri=464) 9.9 fL 9.4-12.3 NUCLEATED RED BLOOD CELLS (BEAKER) (test 0 /100 WBC 0-0 zabl=409) NEUTROPHILS RELATIVE PERCENT (BEAKER) (test 66 % vgqj=682) LYMPHOCYTES RELATIVE PERCENT (BEAKER) (test 23 % brso=572) MONOCYTES RELATIVE PERCENT (BEAKER) (test 8 % gjcf=157) EOSINOPHILS RELATIVE PERCENT (BEAKER) (test 2 % kvcx=402) BASOPHILS RELATIVE PERCENT (BEAKER) (test 1 % mysb=554) NEUTROPHILS ABSOLUTE COUNT (BEAKER) (test 4.55 K/ L 1.56-6.13 xbrv=160) LYMPHOCYTES ABSOLUTE COUNT (BEAKER) (test 1.61 K/ L 1.18-3.74 tjpk=363) MONOCYTES ABSOLUTE COUNT (BEAKER) (test 0.58 K/ L 0.24-0.36 rjuk=748) EOSINOPHILS ABSOLUTE COUNT (BEAKER) (test 0.12 K/ L 0.04-0.36 vrqs=522) BASOPHILS ABSOLUTE COUNT (BEAKER) (test 0.05 K/ L 0.01-0.08 ckyu=345) IMMATURE GRANULOCYTES-RELATIVE PERCENT (BEAKER) 0 % 0-1 (test vrww=5158) POCT-GLUCOSE [id number] 03:47:00 Test Item Value Reference Range Comments POC-GLUCOSE METER (BEAKER) > mg/dL 70-110 : Notified RN/MD: TESTED AT (test msll=7467) [facility] [address] [facility], [id number]: [employer] IF=[id number] for SYLVIA SMITH FACTOR 5 LEIDEN PCR (THROMBOTIC RISK)2017-03-24 19:24:00 Test Item Value Reference Range Comments FACTOR V LEIDEN (BEAKER) Negative for the R506Q (Factor (test ippg=995) V Leiden) mutation [id number] (BEAKER) Martínez Wang MD (electronic (test eewu=8778) signature) This test is a genotyping assay which [...] developed and its performance characteristics determined bythe [facility] Department, Section of Molecular Pathology. It has not been cleared or approved by the U.S. Food and Drug Administration (FDA), since FDA approval is not required for clinical use of the test. Validation was done as required by the Clinical Laboratory Improvement Amendments of 1988.POCT-GLUCOSE [id number] 07:28:00 Test Item Value Reference Range Comments POC-GLUCOSE METER (BEAKER) 200 mg/dL 70-110 TESTED AT [facility] [address] [place] [address] (test fwul=1032) [facility] [address] POCT-GLUCOSE [id number] 21:18:00 Test Item Value Reference Range Comments POC-GLUCOSE METER (BEAKER) 211 mg/dL 70-110 TESTED AT [address] (test einy=5690) [facility] [address] PROTEIN, RANDOM [id number] 19:43:00 Test Item Value Reference Range Comments PROTEIN, URINE (BEAKER) (test akqq=4488) 286 mg/dL 0-14 CREATININE, RANDOM [id number] 18:27:00 Test Item Value Reference Range Comments CREATININE URINE (BEAKER) (test ikeg=789) 29.3 mg/dL Reference Range: No NormalsDILUTE SHIRA VIPER VENOM (DRVV)2017-03-19 12:47:00 Test Item Value Reference Range Comments PROTIME (BEAKER) (test 11.3 seconds 11.7-14.7 liyf=245) INR (BEAKER) (test pwkn=054) 0.8 <=5.9 PARTIAL THROMBOPLASTIN TIME 28.0 seconds 22.5-36.0 (BEAKER) (test gnom=335) DRVV INTERPRETATION (BEAKER) Normal DRVV Results (test tlnx=2524) DRVV INTERPRETATION (BEAKER) Normal Hexagonal Phospholipid (test eubh=372481) [id number] (BEAKER) Martínez Wang MD (electronic (test yowu=9825) signature) DRVV SCREEN RATIO (BEAKER) 0.84 <1.20 (test ydit=4166) Effective 12/20/2013: Test Method ChangeDRVV Screen Ratio, DRVV 1/1 Screen Ratio, DRVV Confirm Ratio,DRVV Normalized Ratio Reference Range: <1.2Protime Reference Range ChangeNew: 11.7-14.7 Previous: 9.8-12.0PTT Reference Range ChangeNew: 22.5-36.0 Previous: 25.8-34.5URINE [id number] 11:40:00 Test Item Value Reference Range Comments CULTURE (BEAKER) (test 20-29,000 col/mL skin lei lspe=2988) POCT-GLUCOSE [id number] 08:33:00 Test Item Value Reference Range Comments POC-GLUCOSE METER (AKER) 293 mg/dL 70-110 TESTED AT [place] [id number] [facility] (test zmcz=0865) [facility] [address] VITAMIN D, [id number] 07:49:00 Test Item Value Reference Range Comments VITAMIN D 25-OH (BEAKER) (test oedv=7745) < ng/mL 13.0-47.8 CBC W/PLT COUNT & AUTO [id number] 05:59:00 Test Item Value Reference Range Comments WHITE BLOOD CELL COUNT (BEAKER) (test afxd=202) 9.4 K/ L 3.5-10.5 RED BLOOD CELL COUNT (BEAKER) (test mdgb=507) 4.16 M/ L 3.93-5.22 HEMOGLOBIN (BEAKER) (test ynxg=394) 12.7 GM/DL 11.2-15.7 HEMATOCRIT (BEAKER) (test vwzi=710) 38.0 % 34.1-44.9 MEAN CORPUSCULAR VOLUME (BEAKER) (test hljf=777) 91.3 fL 79.4-94.8 MEAN CORPUSCULAR HEMOGLOBIN (BEAKER) (test 30.5 pg 25.6-32.2 cguu=989) MEAN CORPUSCULAR HEMOGLOBIN CONC (BEAKER) (test 33.4 GM/DL 32.2-35.5 xxvl=133) RED CELL DISTRIBUTION WIDTH (BEAKER) (test 12.6 % 11.7-14.4 zigu=237) PLATELET COUNT (BEAKER) (test dbyp=049) 329 K/CU MM 150-450 MEAN PLATELET VOLUME (BEAKER) (test yoss=690) 10.0 fL 9.4-12.3 NUCLEATED RED BLOOD CELLS (BEAKER) (test 0 /100 WBC 0-0 epsj=924) NEUTROPHILS RELATIVE PERCENT (BEAKER) (test 68 % jvqy=423) LYMPHOCYTES RELATIVE PERCENT (BEAKER) (test 23 % fqxx=943) MONOCYTES RELATIVE PERCENT (BEAKER) (test 7 % iqgh=106) EOSINOPHILS RELATIVE PERCENT (BEAKER) (test 1 % jbly=449) BASOPHILS RELATIVE PERCENT (BEAKER) (test 1 % hgix=205) NEUTROPHILS ABSOLUTE COUNT (BEAKER) (test 6.35 K/ L 1.56-6.13 rpnv=359) LYMPHOCYTES ABSOLUTE COUNT (BEAKER) (test 2.16 K/ L 1.18-3.74 xhre=630) MONOCYTES ABSOLUTE COUNT (BEAKER) (test 0.68 K/ L 0.24-0.36 rzge=153) EOSINOPHILS ABSOLUTE COUNT (BEAKER) (test 0.10 K/ L 0.04-0.36 sufy=057) BASOPHILS ABSOLUTE COUNT (BEAKER) (test 0.06 K/ L 0.01-0.08 hqdz=062) IMMATURE GRANULOCYTES-RELATIVE PERCENT (BEAKER) 0 % 0-1 (test nqpj=1007) BASIC METABOLIC [id number] 05:38:00 Test Item Value Reference Range Comments SODIUM (BEAKER) (test 135 meq/L 136-145 uufa=326) POTASSIUM (BEAKER) (test 4.1 meq/L 3.5-5.1 thyo=455) CHLORIDE (BEAKER) (test 102 meq/L 98-107 jric=199) CO2 (BEAKER) (test 25 meq/L 22-29 iint=687) BLOOD UREA NITROGEN 12 mg/dL 7-21 (BEAKER) (test qsfn=782) CREATININE (BEAKER) (test 1.99 mg/dL 0.57-1.25 lyyo=566) GLUCOSE RANDOM (BEAKER) 290 mg/dL 70-105 (test vqod=652) CALCIUM (BEAKER) (test 8.7 mg/dL 8.4-10.2 pook=563) EGFR (BEAKER) (test 27 mL/min/1.73 sq m ESTIMATED GFR IS NOT liix=4507) ACCURATE CREATININE CLEARANCE IN PREDICTING GLOMERULAR FILTRATION RATE. ESTIMATED GFR IS NOT APPLICABLE FOR DIALYSIS PATIENTS. [id number] 05:37:00 Test Item Value Reference Range Comments PHOSPHORUS (BEAKER) (test ybww=061) 4.1 mg/dL 2.3-4.7 [id number] 05:37:00 Test Item Value Reference Range Comments MAGNESIUM (BEAKER) (test afbr=890) 1.7 mg/dL 1.6-2.6 PTH, [id number] 05:34:00 Test Item Value Reference Range Comments PARATHYROID HORMONE INTACT (BEAKER) (test 57.2 pg/mL 8.5-72.5 tykr=444) Effective 07/04/2014: Reference Range ChangeNew: 8.5-72.5 Previous: 15.0- 90.0CARDIOLIPIN ANTIBODIES, IGG AND [id number] 22:36:00 Test Item Value Reference Range Comments ANTICARDIOLIPIN IGG ANTIBODY (BEAKER) (test < GPL dkqn=985) ANTICARDIOLIPIN IGM ANTIBODY (BEAKER) (test 2.8 MPL trbs=489) Anticardiolipin IgG Result Interpretation:NEG: <20 GPL; U/mlPOS: >/=20 GPL; U/mlAnticardiolipin IgM Result Interpretation:NEG: <20 MPL; U/mlPOS: >/=20 MPL; U/mlPOCT-GLUCOSE [id number] 21:25:00 Test Item Value Reference Range Comments POC-GLUCOSE METER (BEAKER) 198 mg/dL 70-110 TESTED AT [facility] [address] [facility] (test ojcu=8695) [facility] [address] POCT-GLUCOSE [id number] 16:29:00 Test Item Value Reference Range Comments POC-GLUCOSE METER (BEAKER) 296 mg/dL 70-110 TESTED AT [facility] [address] [facility] (test lidf=4044) [facility] [address] ANTI-NUCLEAR ANTIBODY (MARY)2017-03-18 15:30:00 Test Item Value Reference Range Comments ANTI-NUCLEAR ANTIBODY (MARY) (BEAKER) (test Negative Negative zopl=252) HEXAGONAL [id number] 13:21:00 Test Item Value Reference Range Comments HEXAGONAL PHOSPHOLIPID (BEAKER) (test bipj=7757) Negative POCT-GLUCOSE [id number] 12:15:00 Test Item Value Reference Range Comments POC-GLUCOSE METER (BEAKER) 140 mg/dL 70-110 TESTED AT [address] (test sjsx=6383) [place] [id number] PROTEIN C [id number] 11:44:00 Test Item Value Reference Range Comments PROTEIN C ACTIVITY (BEAKER) (test ivzp=481) 155.0 % 70.0-130.0 Effective 12/20/2013: Reference Range Change-Adult onlyNew: 70.0-130.0 Previous : 70.0-140.0See Protein C Antigen.ANTITHROMBIN [id number] 11:43:00 Test Item Value Reference Range Comments ANTITHROMBIN III ACTIVITY (BEAKER) (test qopw=049) 87.0 % 80.0-120.0 Effective 12/20/2013: Reference Range Change-Adult onlyNew: 80.0-120.0 Previous : 90.0-128.0POCT-GLUCOSE [id number] 08:17:00 Test Item Value Reference Range Comments POC-GLUCOSE METER (BEAKER) 107 mg/dL 70-110 TESTED AT [address] (test oukm=2826) [place] [address] BASIC METABOLIC [id number] 06:32:00 Test Item Value Reference Range Comments SODIUM (BEAKER) (test 136 meq/L 136-145 bebg=628) POTASSIUM (BEAKER) (test 3.6 meq/L 3.5-5.1 hppp=276) CHLORIDE (BEAKER) (test 104 meq/L 98-107 ufnk=233) CO2 (BEAKER) (test 23 meq/L 22-29 wsxn=220) BLOOD UREA NITROGEN 11 mg/dL 7-21 (BEAKER) (test yqmz=159) CREATININE (BEAKER) (test 1.68 mg/dL 0.57-1.25 nwfr=640) GLUCOSE RANDOM (BEAKER) 99 mg/dL 70-105 (test ixnv=748) CALCIUM (BEAKER) (test 8.4 mg/dL 8.4-10.2 hggi=905) EGFR (BEAKER) (test 33 mL/min/1.73 sq m ESTIMATED GFR IS NOT yono=1403) ACCURATE CREATININE CLEARANCE IN PREDICTING GLOMERULAR FILTRATION RATE. ESTIMATED GFR IS NOT APPLICABLE FOR DIALYSIS PATIENTS. CBC W/PLT COUNT & AUTO [id number] 05:56:00 Test Item Value Reference Range Comments WHITE BLOOD CELL COUNT (BEAKER) (test zyxk=303) 11.7 K/ L 3.5-10.5 RED BLOOD CELL COUNT (BEAKER) (test xnmx=735) 3.95 M/ L 3.93-5.22 HEMOGLOBIN (BEAKER) (test ysmy=461) 12.1 GM/DL 11.2-15.7 HEMATOCRIT (BEAKER) (test gklt=601) 36.3 % 34.1-44.9 MEAN CORPUSCULAR VOLUME (BEAKER) (test pvsc=948) 91.9 fL 79.4-94.8 MEAN CORPUSCULAR HEMOGLOBIN (BEAKER) (test 30.6 pg 25.6-32.2 lmfi=736) MEAN CORPUSCULAR HEMOGLOBIN CONC (BEAKER) (test 33.3 GM/DL 32.2-35.5 lgxz=894) RED CELL DISTRIBUTION WIDTH (BEAKER) (test 12.7 % 11.7-14.4 pqrn=069) PLATELET COUNT (BEAKER) (test evux=851) 349 K/CU MM 150-450 MEAN PLATELET VOLUME (BEAKER) (test bofu=228) 10.8 fL 9.4-12.3 NUCLEATED RED BLOOD CELLS (BEAKER) (test 0 /100 WBC 0-0 rvus=263) NEUTROPHILS RELATIVE PERCENT (BEAKER) (test 59 % fhzb=722) LYMPHOCYTES RELATIVE PERCENT (BEAKER) (test 31 % nqto=449) MONOCYTES RELATIVE PERCENT (BEAKER) (test 8 % dmad=456) EOSINOPHILS RELATIVE PERCENT (BEAKER) (test 2 % bsgp=431) BASOPHILS RELATIVE PERCENT (BEAKER) (test 1 % tzkw=225) NEUTROPHILS ABSOLUTE COUNT (BEAKER) (test 6.87 K/ L 1.56-6.13 vyte=165) LYMPHOCYTES ABSOLUTE COUNT (BEAKER) (test 3.57 K/ L 1.18-3.74 xnjn=639) MONOCYTES ABSOLUTE COUNT (BEAKER) (test 0.90 K/ L 0.24-0.36 ozzk=189) EOSINOPHILS ABSOLUTE COUNT (BEAKER) (test 0.24 K/ L 0.04-0.36 xcva=482) BASOPHILS ABSOLUTE COUNT (BEAKER) (test 0.06 K/ L 0.01-0.08 lbid=119) IMMATURE GRANULOCYTES-RELATIVE PERCENT (BEAKER) 0 % 0-1 (test ulgb=3242) POCT-GLUCOSE [id number] 04:32:00 Test Item Value Reference Range Comments POC-GLUCOSE METER (BEAKER) 107 mg/dL 70-110 TESTED AT [facility] [address] [place] [address] (test aefi=7662) [facility] [address] POCT-GLUCOSE [id number] 22:21:00 Test Item Value Reference Range Comments POC-GLUCOSE METER (BEAKER) 118 mg/dL 70-110 TESTED AT [address] (test qeaa=4389) [facility] [address] POCT-GLUCOSE [id number] 21:22:00 Test Item Value Reference Range Comments POC-GLUCOSE METER (BEAKER) 52 mg/dL 70-110 Notified ARMOND REYNOSO/TESTED AT [facility] (test adrp=8466) [address] [place] [address] MICROALBUMIN, RANDOM [id number] 17:57:00 Test Item Value Reference Range Comments MICROALBUMIN URINE (BEAKER) (test kexn=3158) > mg/dL Reference Range: No NormalsURINALYSIS W/ [id number] 17:36:00 Test Item Value Reference Range Comments COLOR (BEAKER) (test pgss=278) Light Yellow CLARITY (BEAKER) (test dawb=092) Clear SPECIFIC GRAVITY UA (BEAKER) (test jeme=790) 1.005 1.001-1.035 PH UA (BEAKER) (test dedd=008) 7.0 5.0-8.0 PROTEIN UA (BEAKER) (test yvcs=237) 300 mg/dL Negative GLUCOSE UA (BEAKER) (test wags=551) 30 mg/dL Negative KETONES UA (BEAKER) (test mdcg=714) Negative Negative BILIRUBIN UA (BEAKER) (test rpyz=545) Negative Negative BLOOD UA (BEAKER) (test fhui=792) Negative Negative NITRITE UA (BEAKER) (test vtyi=220) Negative Negative LEUKOCYTE ESTERASE UA (BEAKER) (test wwdq=155) Negative Negative UROBILINOGEN UA (BEAKER) (test azvz=111) 0.2 mg/dL 0.2-1.0 RBC UA (BEAKER) (test patk=244) 1 /HPF WBC UA (BEAKER) (test pyre=789) < /HPF BACTERIA (BEAKER) (test vtni=601) Rare SQUAMOUS EPITHELIAL (BEAKER) (test eyvb=363) 1 /HPF SOURCE(BEAKER) (test ldnp=1026) Urine, Voided SCREEN, [id number] 17:36:00 Test Item Value Reference Range Comments TEST URINE (BEAKER) (test oosm=683) Negative CREATININE, RANDOM [id number] 17:35:00 Test Item Value Reference Range Comments CREATININE URINE (BEAKER) (test qghi=235) 33.9 mg/dL Reference Range: No NormalsSODIUM, RANDOM [id number] 17:35:00 Test Item Value Reference Range Comments SODIUM URINE (BEAKER) (test akdh=778) 63 meq/L Reference Range: No NormalsPOCT-GLUCOSE [id number] 17:34:00 Test Item Value Reference Range Comments POC-GLUCOSE METER (BEAKER) 118 mg/dL 70-110 TESTED AT [address] (test yair=2969) [place] [address] POCT-GLUCOSE [id number] 13:28:00 Test Item Value Reference Range Comments POC-GLUCOSE METER (BEAKER) 71 mg/dL 70-110 TESTED AT [address] (test ucru=8254) [place] [address] POCT-GLUCOSE [id number] 10:37:00 Test Item Value Reference Range Comments POC-GLUCOSE METER (BEAKER) 144 mg/dL 70-110 TESTED AT [address] (test lsca=7015) [place] [address] POCT-GLUCOSE [id number] 07:18:00 Test Item Value Reference Range Comments POC-GLUCOSE METER (BEAKER) 60 mg/dL 70-110 TESTED AT [address] (test mrua=9275) [place] [address] CBC W/PLT COUNT & AUTO [id number] 05:51:00 Test Item Value Reference Range Comments WHITE BLOOD CELL COUNT (BEAKER) (test cxsw=849) 11.4 K/ L 3.5-10.5 RED BLOOD CELL COUNT (BEAKER) (test zael=258) 3.81 M/ L 3.93-5.22 HEMOGLOBIN (BEAKER) (test eidr=373) 11.6 GM/DL 11.2-15.7 HEMATOCRIT (BEAKER) (test vohb=665) 34.5 % 34.1-44.9 MEAN CORPUSCULAR VOLUME (BEAKER) (test zqgk=023) 90.6 fL 79.4-94.8 MEAN CORPUSCULAR HEMOGLOBIN (BEAKER) (test 30.4 pg 25.6-32.2 wxdm=018) MEAN CORPUSCULAR HEMOGLOBIN CONC (BEAKER) (test 33.6 GM/DL 32.2-35.5 xjpy=817) RED CELL DISTRIBUTION WIDTH (BEAKER) (test 12.6 % 11.7-14.4 hsny=955) PLATELET COUNT (BEAKER) (test smbs=994) 354 K/CU MM 150-450 MEAN PLATELET VOLUME (BEAKER) (test ysic=203) 10.4 fL 9.4-12.3 NUCLEATED RED BLOOD CELLS (BEAKER) (test 0 /100 WBC 0-0 mxfk=058) NEUTROPHILS RELATIVE PERCENT (BEAKER) (test 72 % lgxq=619) LYMPHOCYTES RELATIVE PERCENT (BEAKER) (test 20 % riwr=493) MONOCYTES RELATIVE PERCENT (BEAKER) (test 6 % kbfc=264) EOSINOPHILS RELATIVE PERCENT (BEAKER) (test 1 % anhh=589) BASOPHILS RELATIVE PERCENT (BEAKER) (test 0 % cdrm=419) NEUTROPHILS ABSOLUTE COUNT (BEAKER) (test 8.21 K/ L 1.56-6.13 fnck=956) LYMPHOCYTES ABSOLUTE COUNT (BEAKER) (test 2.31 K/ L 1.18-3.74 novf=778) MONOCYTES ABSOLUTE COUNT (BEAKER) (test 0.65 K/ L 0.24-0.36 npog=117) EOSINOPHILS ABSOLUTE COUNT (BEAKER) (test 0.11 K/ L 0.04-0.36 uptu=240) BASOPHILS ABSOLUTE COUNT (BEAKER) (test 0.05 K/ L 0.01-0.08 rali=646) IMMATURE GRANULOCYTES-RELATIVE PERCENT (BEAKER) 0 % 0-1 (test lqjj=4358) BASIC METABOLIC [id number] 05:51:00 Test Item Value Reference Range Comments SODIUM (BEAKER) (test 138 meq/L 136-145 tzoh=094) POTASSIUM (BEAKER) (test 3.8 meq/L 3.5-5.1 recp=678) CHLORIDE (BEAKER) (test 105 meq/L 98-107 sfsu=457) CO2 (BEAKER) (test 26 meq/L 22-29 cxst=443) BLOOD UREA NITROGEN 13 mg/dL 7-21 (BEAKER) (test bxac=666) CREATININE (BEAKER) (test 1.66 mg/dL 0.57-1.25 sxur=782) GLUCOSE RANDOM (BEAKER) 167 mg/dL 70-105 (test qafu=396) CALCIUM (BEAKER) (test 8.9 mg/dL 8.4-10.2 usux=137) EGFR (BEAKER) (test 34 mL/min/1.73 sq m ESTIMATED GFR IS NOT yctx=0360) ACCURATE CREATININE CLEARANCE IN PREDICTING GLOMERULAR FILTRATION RATE. ESTIMATED GFR IS NOT APPLICABLE FOR DIALYSIS PATIENTS. POCT-GLUCOSE [id number] 21:41:00 Test Item Value Reference Range Comments POC-GLUCOSE METER (BEAKER) 287 mg/dL 70-110 TESTED AT [address] (test gyvg=9375) [facility] [address] BASIC METABOLIC [id number] 12:35:00 Test Item Value Reference Range Comments SODIUM (BEAKER) (test 134 meq/L 136-145 ulqh=914) POTASSIUM (BEAKER) (test 4.6 meq/L 3.5-5.1 nyim=198) CHLORIDE (BEAKER) (test 105 meq/L 98-107 ytek=201) CO2 (BEAKER) (test 23 meq/L 22-29 eotu=216) BLOOD UREA NITROGEN 14 mg/dL 7-21 (BEAKER) (test zhmy=316) CREATININE (BEAKER) 1.59 mg/dL 0.57-1.25 (test ewcu=615) GLUCOSE RANDOM (BEAKER) 266 mg/dL 70-105 (test ybju=050) CALCIUM (BEAKER) (test 8.2 mg/dL 8.4-10.2 fleu=944) EGFR (BEAKER) (test 36 mL/min/1.73 sq m INSUFFICIENT CLINICAL DATA opqs=1821) TO CALCULATE ESTIMATED GFR.This is an appended report. These results have been appended to a previously final verified report. CBC W/PLT COUNT & AUTO [id number] 04:54:00 Test Item Value Reference Range Comments WHITE BLOOD CELL COUNT (BEAKER) (test shun=175) 10.6 K/ L 3.5-10.5 RED BLOOD CELL COUNT (BEAKER) (test ynjo=235) 3.55 M/ L 3.93-5.22 HEMOGLOBIN (BEAKER) (test kdzt=272) 10.8 GM/DL 11.2-15.7 HEMATOCRIT (BEAKER) (test vdey=132) 32.6 % 34.1-44.9 MEAN CORPUSCULAR VOLUME (BEAKER) (test wqrh=662) 91.8 fL 79.4-94.8 MEAN CORPUSCULAR HEMOGLOBIN (BEAKER) (test 30.4 pg 25.6-32.2 stss=244) MEAN CORPUSCULAR HEMOGLOBIN CONC (BEAKER) (test 33.1 GM/DL 32.2-35.5 zkby=199) RED CELL DISTRIBUTION WIDTH (BEAKER) (test 12.3 % 11.7-14.4 bbmw=347) PLATELET COUNT (BEAKER) (test pecd=636) 311 K/CU MM 150-450 MEAN PLATELET VOLUME (BEAKER) (test vsgu=173) 10.2 fL 9.4-12.3 NUCLEATED RED BLOOD CELLS (BEAKER) (test 0 /100 WBC 0-0 ekcn=528) NEUTROPHILS RELATIVE PERCENT (BEAKER) (test 71 % xqnp=173) LYMPHOCYTES RELATIVE PERCENT (BEAKER) (test 20 % vqes=364) MONOCYTES RELATIVE PERCENT (BEAKER) (test 6 % rczv=988) EOSINOPHILS RELATIVE PERCENT (BEAKER) (test 3 % umju=534) BASOPHILS RELATIVE PERCENT (BEAKER) (test 1 % qjum=235) NEUTROPHILS ABSOLUTE COUNT (BEAKER) (test 7.51 K/ L 1.56-6.13 sinj=129) LYMPHOCYTES ABSOLUTE COUNT (BEAKER) (test 2.11 K/ L 1.18-3.74 jfgw=652) MONOCYTES ABSOLUTE COUNT (BEAKER) (test 0.60 K/ L 0.24-0.36 cqwx=067) EOSINOPHILS ABSOLUTE COUNT (BEAKER) (test 0.27 K/ L 0.04-0.36 amyo=929) BASOPHILS ABSOLUTE COUNT (BEAKER) (test 0.07 K/ L 0.01-0.08 cnjx=790) IMMATURE GRANULOCYTES-RELATIVE PERCENT (BEAKER) 1 % 0-1 (test ycgn=2057) [id number] 20:17:00 Test Item Value Reference Range Comments RPR SCREEN (BEAKER) (test zqgk=633) Nonreactive Nonreactive POCT-GLUCOSE [id number] 18:09:00 Test Item Value Reference Range Comments POC-GLUCOSE METER (BEAKER) 215 mg/dL 70-110 TESTED AT [facility] [address] [facility] (test biwr=8338) [facility] [address] CBC W/PLT COUNT & AUTO [id number] 11:54:00 Test Item Value Reference Range Comments WHITE BLOOD CELL COUNT (BEAKER) (test dshx=811) 9.3 K/ L 3.5-10.5 RED BLOOD CELL COUNT (BEAKER) (test xdzk=169) 3.45 M/ L 3.93-5.22 HEMOGLOBIN (BEAKER) (test deak=650) 10.7 GM/DL 11.2-15.7 HEMATOCRIT (BEAKER) (test fjlw=758) 32.0 % 34.1-44.9 MEAN CORPUSCULAR VOLUME (BEAKER) (test gboe=779) 92.8 fL 79.4-94.8 MEAN CORPUSCULAR HEMOGLOBIN (BEAKER) (test 31.0 pg 25.6-32.2 thqq=848) MEAN CORPUSCULAR HEMOGLOBIN CONC (BEAKER) (test 33.4 GM/DL 32.2-35.5 rsmu=294) RED CELL DISTRIBUTION WIDTH (BEAKER) (test 12.7 % 11.7-14.4 yxqz=990) PLATELET COUNT (BEAKER) (test isds=484) 302 K/CU MM 150-450 MEAN PLATELET VOLUME (BEAKER) (test bhir=911) 10.0 fL 9.4-12.3 NUCLEATED RED BLOOD CELLS (BEAKER) (test 0 /100 WBC 0-0 bffw=799) NEUTROPHILS RELATIVE PERCENT (BEAKER) (test 60 % srlr=463) LYMPHOCYTES RELATIVE PERCENT (BEAKER) (test 29 % lkup=858) MONOCYTES RELATIVE PERCENT (BEAKER) (test 8 % bekz=287) EOSINOPHILS RELATIVE PERCENT (BEAKER) (test 3 % gpor=553) BASOPHILS RELATIVE PERCENT (BEAKER) (test 1 % hlsh=435) NEUTROPHILS ABSOLUTE COUNT (BEAKER) (test 5.55 K/ L 1.56-6.13 vdyb=782) LYMPHOCYTES ABSOLUTE COUNT (BEAKER) (test 2.65 K/ L 1.18-3.74 bpbr=174) MONOCYTES ABSOLUTE COUNT (BEAKER) (test 0.70 K/ L 0.24-0.36 lbof=268) EOSINOPHILS ABSOLUTE COUNT (BEAKER) (test 0.31 K/ L 0.04-0.36 wuoy=968) BASOPHILS ABSOLUTE COUNT (BEAKER) (test 0.05 K/ L 0.01-0.08 rbdp=131) IMMATURE GRANULOCYTES-RELATIVE PERCENT (BEAKER) 0 % 0-1 (test yugz=1940) (MANUAL DIFFERENTIAL)2017-03-15 11:54:00 Test Item Value Reference Range Comments TOTAL COUNTED (BEAKER) (test ppvl=9960) WBC MORPHOLOGY (BEAKER) (test usxf=979) Normal PLT MORPHOLOGY (BEAKER) (test vegr=960) Normal RBC MORPHOLOGY (BEAKER) (test eigk=537) Normal SEDIMENTATION [id number] 10:27:00 Test Item Value Reference Range Comments SEDIMENTATION RATE, ERYTHROCYTE (BEAKER) (test 79 mm/HR 0-20 zglb=747) HEMOGLOBIN [id number] 09:33:00 Test Item Value Reference Range Comments HEMOGLOBIN A1C (BEAKER) (test mosu=542) 9.8 % 4.3-6.1 VITAMIN [id number] 09:14:00 Test Item Value Reference Range Comments VITAMIN B12 (BEAKER) (test scow=402) 1790 pg/mL 213-816 TSH/FREE T4 IF [id number] 09:14:00 Test Item Value Reference Range Comments THYROID STIMULATING HORMONE (BEAKER) (test 1.08 uIU/mL 0.35-4.94 jspx=596) BASIC METABOLIC [id number] 08:52:00 Test Item Value Reference Range Comments SODIUM (BEAKER) (test 137 meq/L 136-145 qizl=151) POTASSIUM (BEAKER) (test 4.7 meq/L 3.5-5.1 noet=147) CHLORIDE (BEAKER) (test 107 meq/L 98-107 swuy=200) CO2 (BEAKER) (test 25 meq/L 22-29 mnnh=709) BLOOD UREA NITROGEN 18 mg/dL 7-21 (BEAKER) (test bhkg=398) CREATININE (BEAKER) (test 1.77 mg/dL 0.57-1.25 rnjg=242) GLUCOSE RANDOM (BEAKER) 290 mg/dL 70-105 (test hsxw=045) CALCIUM (BEAKER) (test 8.0 mg/dL 8.4-10.2 runs=942) EGFR (BEAKER) (test mL/min/1.73 sq m INSUFFICIENT CLINICAL DATA ywmc=4495) TO CALCULATE ESTIMATED GFR. FastingLIPID [id number] 08:51:00 Test Item Value Reference Range Comments TRIGLYCERIDES (BEAKER) (test ludm=916) 90 mg/dL CHOLESTEROL (BEAKER) (test qyna=734) 143 mg/dL HDL CHOLESTEROL (BEAKER) (test skwr=217) 44 mg/dL LDL CHOLESTEROL CALCULATED (BEAKER) (test 81 mg/dL ltiy=036) Triglyceride Reference Range: Low Risk <150 Borderline 150- 199 High Risk 200-499 Very High Risk >=500Cholesterol Reference Range: Low Risk <200 Borderline 200-239 High Risk > 240HDL Cholesterol Reference Range: Low Risk >=60 High Risk <40LDL Cholesterol Reference Range: Optimal <100 Near Optimal 100-129 Borderline 130-159 High 160-189 Very High >=190 FastingHCG, QUANTITATIVE, [id number] 01:43:00 Test Item Value Reference Range Comments GONADOTROPIN, CHORIONIC (HCG) QUANT (BEAKER) (test < mIU/mL 0-10 wcbu=015) Non- Females: <10 mIU/mL Females: Gestation Age Reference Range(mIU/mL) 0.2-1 Week 5-50 1-2 Weeks 50-500 2-3 Weeks 100-5,000 3-4Weeks 500-10,000 4 -5 Weeks 1,000-50,000 5-6 Weeks 10,000-100,000 6-8 Weeks 15,000-200,000 2-3 Months 10,000-100,000COMPREHENSIVE METABOLIC [id number] 21:57:00 Test Item Value Reference Range Comments TOTAL PROTEIN (BEAKER) 5.0 gm/dL 6.0-8.3 (test cmky=321) ALBUMIN (BEAKER) (test 2.1 g/dL 3.5-5.0 udme=7394) ALKALINE PHOSPHATASE 106 U/L 40-150 (BEAKER) (test xyws=444) BILIRUBIN TOTAL (BEAKER) 0.2 mg/dL 0.2-1.2 (test ubzr=025) SODIUM (BEAKER) (test 137 meq/L 136-145 faro=507) POTASSIUM (BEAKER) (test 4.7 meq/L 3.5-5.1 dffq=417) CHLORIDE (BEAKER) (test 106 meq/L 98-107 hzwk=006) CO2 (BEAKER) (test 25 meq/L 22-29 srpe=738) BLOOD UREA NITROGEN 21 mg/dL 7-21 (BEAKER) (test gwvd=595) CREATININE (BEAKER) (test 2.00 mg/dL 0.57-1.25 sglm=551) GLUCOSE RANDOM (BEAKER) 285 mg/dL 70-105 (test wjsf=888) CALCIUM (BEAKER) (test 7.9 mg/dL 8.4-10.2 nrux=483) AST (SGOT) (BEAKER) (test 16 U/L 5-34 tbfb=278) ALT (SGPT) (BEAKER) (test 14 U/L 6-55 onkd=882) EGFR (BEAKER) (test mL/min/1.73 sq m INSUFFICIENT CLINICAL DATA bdqj=7060) TO CALCULATE ESTIMATED GFR. Unit CollectPOCT-GLUCOSE [id number] 21:50:00 Test Item Value Reference Range Comments POC-GLUCOSE METER (BEAKER) 278 mg/dL 70-110 TESTED AT [facility] [id number] (test mhas=0782) [facility] [id number]
[2019-07-29] MEDS ORDERED: BISACODYL 10 MG RECTAL SUPP ONE (18:53)
[2019-07-29] MEDS ORDERED: LACTULOSE 20 GM/30 ML UCUP ONE (18:54)
[2019-07-29] MEDS ORDERED: MORPHINE 4 MG/ML SYR ONE ×2 (18:54→20:48)
[2019-07-29] MEDS ORDERED: ONDANSETRON 4 MG/2 ML VIAL ONE ×3 (18:54→20:53)
[2019-07-29 18:58] LABS: Absolute Lymphocytes (CBC) 2.2 K/uL (0.7-4.9); Basophils % 0.5 % (0-1.3); Hematocrit 34.1 % (36.0-45.0); Lymphocytes % 19.5 % (15.3-44.8); MPV 8.1 fL (7.6-11.3); RBC Red Blood Cell Count 3.69 M/uL (3.86-4.86)
[2019-07-29 19:23] LABS: Albumin 2.7 g/dL (3.4-5.0); Bilirubin Total 0.3 mg/dL (0.2-1.0); Potassium 3.9 mmol/L (3.5-5.1); Protein, Total 7.5 g/dL (6.4-8.2)
--- NOTE | 2019-07-29 20:56 | RAD REPORT ---
EXAM DESCRIPTION: CT - Abdomen Pelvis Wo Contrast - 07/29/2019 8:42 pm CLINICAL HISTORY: Abdominal distention;Abd pain COMPARISON: [facility] Protocol dated 03/13/2019. TECHNIQUE: Axial [address] imaging of the abdomen and pelvis was performed without IV contrast. No IV contrast was given because of allergy, abnormal renal function, patient refusal or physician re quest. Oral contrast was given. All CT scans are performed using dose optimization technique as appropriate and may include automated exposure control or mA/KV adjustment according to patient size. FINDINGS: No suspicious findings in the lung bases. The liver, spleen and pancreas show no suspicious findings on non-contrast imaging. Cholecystectomy c lips are present. No biliary tree dilatation. No hydronephrosis or suspicious renal mass. Renal vascular calcifications are present. Mild nonspecif ic perinephric stranding. No significant adrenal finding. Isodense renal masses and pyelonephritis ca nnot be excluded in the absence of IV contrast. The urinary bladder is without significant finding. An enlarged multi fibroid uterus is identified. Calcifications are seen within the fibroids. No subst antial change comparison. Ovaries are not well visualized on this study no adnexal mass is present. Oral contrast has reached the distal small bowel. No gastric wall thickening or mass. No dilated smal l bowel or acute small bowel finding. Moderate stool volume is present throughout the colon. Rectum i s distended by retained stool. No free air, free fluid or inflammatory stranding. No hernia, mass or bulky lymphadenopathy. No suspicious bony findings. Bony degenerative changes are present. No acute vascular finding suspected. Assessment is limited in the absence of contrast. IMPRESSION: Moderate stool volume throughout the colon with stool distending the rectum. No acute GI process otherwise noted. No hydronephrosis, obstructing calculus or acute finding. Isodense masses and pyelonephritis are n ot fully excluded on a noncontrast study. Full assessment is limited is the absence of IV contrast. CT findings are not substantially different from the comparison study.
--- NOTE | 2019-07-29 21:41 | EDPHYS ---
Physician Documentation [facility] Name: Archana Woo Age: 43 yrs Sex: Female : 1975 Arrival Date: 07/29/2019 Time: 18:13 Bed 6 Private MD: ED Physician Zelalem Brenner HPI: 07/29 18:44 This 43 yrs old Female presents to ER via EMS with complaints of Abdominal davion Pain, Constipation. 18:44 The patient presents with abdominal pain in the lower abdomen, abdominal distention in davion the upper abdomen, in the lower abdomen. Onset: The symptoms/episode began/occurred 2 day(s) ago. The symptoms do not radiate. Associated signs and symptoms: none. The symptoms are described as crampy. Severity of pain: At its worst the pain was moderate in the emergency department the pain is unchanged is actually worse. The patient has not experienced similar symptoms in the past. 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 - Social history:: Smoking status: Patient/guardian denies using tobacco. - Ebola Screening: : Patient negative for fever greater than or equal to 101.5 degrees Fahrenheit, and additional compatible Ebola Virus Disease symptoms Patient denies exposure to infectious person Patient denies travel to an Ebola-affected area in the 21 days before illness onset No symptoms or risks identified at this time. - Family history:: not pertinent. ROS: 18:44 Constitutional: Negative for fever, chills, and weight loss, Eyes: Negative for injury, davion pain, redness, and discharge, ENT: Negative for injury, pain, and discharge, Neck: Negative for injury, pain, and swelling, Cardiovascular: Negative for chest pain, palpitations, and edema, Respiratory: Negative for shortness of breath, cough, wheezing, and pleuritic chest pain, Back: Negative for injury and pain, : Negative for injury, bleeding, discharge, and swelling, MS/Extremity: Negative for injury and deformity, Skin: Negative for injury, rash, and discoloration, Neuro: Negative for headache, weakness, numbness, tingling, and seizure, Psych: Negative for depression, anxiety, suicide ideation, homicidal ideation, and hallucinations, Allergy/Immunology: Negative for hives, rash, and allergies, Endocrine: Negative for neck swelling, polydipsia, polyuria, polyphagia, and marked weight changes, Hematologic/Lymphatic: Negative for swollen nodes, abnormal bleeding, and unusual bruising. 18:44 Abdomen/GI: Positive for abdominal pain, constipation. Exam: 18:44 Constitutional: This is a well developed, well nourished patient who is awake, alert, davion and in no acute distress. Head/Face: Normocephalic, atraumatic. Eyes: Pupils equal round and reactive to light, extra-ocular motions intact. Lids and lashes normal. Conjunctiva and sclera are non-icteric and not injected. Cornea within normal limits. Periorbital areas with no swelling, redness, or edema. ENT: Nares patent. No nasal discharge, no septal abnormalities noted. Tympanic membranes are normal and external auditory canals are clear. Oropharynx with no redness, swelling, or masses, exudates, or evidence of obstruction, uvula midline. Mucous membranes moist. Neck: Trachea midline, no thyromegaly or masses palpated, and no cervical lymphadenopathy. Supple, full range of motion without nuchal rigidity, or vertebral point tenderness. No Meningismus. Chest/axilla: Normal chest wall appearance and motion. Nontender with no deformity. No lesions are appreciated. Cardiovascular: Regular rate and rhythm with a normal S1 and S2. No gallops, murmurs, or rubs. Normal PMI, no JVD. No pulse deficits. Respiratory: Lungs have equal breath sounds bilaterally, clear to auscultation and percussion. No rales, rhonchi or wheezes noted. No increased work of breathing, no retractions or nasal flaring. Back: No spinal tenderness. No costovertebral tenderness. Full range of motion. Skin: Warm, dry with normal turgor. Normal color with no rashes, no lesions, and no evidence of cellulitis. MS/ Extremity: Pulses equal, no cyanosis. Neurovascular intact. Full, normal range of motion. Neuro: Awake and alert, GCS 15, oriented to person, place, time, and situation. Cranial nerves II-XII grossly intact. Motor strength 5/5 in all extremities. Sensory grossly intact. Cerebellar exam normal. Normal gait. Psych: Awake, alert, with orientation to person, place and time. Behavior, mood, and affect are within normal limits. 18:44 Abdomen/GI: Inspection: abdomen appears normal, Bowel sounds: normal, Palpation: mild abdominal tenderness, in the right lower quadrant and left lower quadrant, Liver: is firm, Hernia: not appreciated. 18:48 Abdomen/GI: Rectal exam: rectal tone normal, Stool: normal, hemorrhoid(s), are not davion appreciated, mass, is not appreciated, swelling, is not appreciated, tenderness, that is mild, fecal impaction, that is moderate, the exam is chaperoned by the nurse. Vital Signs: 18:16 BP 119 / 73; Pulse 92; Resp 16; Temp 97.7(O); Pulse Ox 100% ; lt1 19:17 BP 147 / 60; Pulse 87; Resp 17 S; Pulse Ox 100% on R/A; jd3 20:22 BP 140 / 65; Pulse 88; Resp 18 S; Pulse Ox 100% on R/A; jd3 21:31 BP 148 / 74; Pulse 65; Resp 17 S; Pulse Ox 100% on R/A; jd3 Procedures: 21:38 Performed Digital disimpaction. Moderate amount of soft brown stool removed from rectal la1 vault, pt tolerated well. . MDM: 18:28 Patient medically screened. [facility] 18:52 Data reviewed: vital signs, nurses notes, lab test result(s), radiologic studies, CT davion scan. 07/29 18:43 Order name: CBC with Diff; Complete Time: 20:59 [facility] 07/29 18:43 Order name: Comprehensive Metabolic Panel; Complete Time: 20:59 [facility] 07/29 18:51 Order name: Test, Serum; Complete Time: 20:59 [facility] 07/29 20:31 Order name: Abdomen ; Complete Time: 20:59 EDMS Administered Medications: 19:15 Drug: morphine 4 mg Route: IVP; Site: right forearm; jd3 19:15 Drug: Zofran 4 mg Route: IVP; Site: right forearm; jd3 19:15 Drug: Dulcolax Suppository 10 mg Route: MO; jd3 19:15 Drug: Lactulose 60 grams Volume: 45 ml; Route: PO; jd3 20:58 Drug: morphine 4 mg Route: IVP; Site: right forearm; jd3 20:59 Drug: Zofran 4 mg Route: IVP; Site: right forearm; jd3 Disposition: 07/29/19 21:39 Discharged to Home. Impression: Abdominal tenderness, Constipation, End stage renal disease - on HD M,W,F. - Condition is Stable. - Discharge Instructions: Abdominal Pain, Adult, Constipation, Adult, How to Take a Sitz Bath, Constipation, Adult, Nngy-tt-Kwra, Abdominal Pain, Adult, Cuwi-mx-Drqw, End-Stage Kidney Disease, Dialysis Diet, Lvqj-jw-Rthi. - Prescriptions for Lactulose 10 gram/15 mL Oral Solution - take 30 milliliter by ORAL route once daily; 300 milliliter. Dulcolax 10 mg Rectal Suppository - insert 1 suppository by RECTAL route every 12 hours As needed; 10 suppository. - Medication Reconciliation Form, Thank You Letter, Antibiotic Education, Prescription Opioid Use form. - Follow up: Private Physician; When: 2 - 3 days; Reason: Recheck today's complaints, Continuance of care, Re-evaluation by your physician. Follow up: Nick Carrington; When: 2 - 3 days; Reason: Recheck today's complaints, Re-evaluation by your physician. - Problem is new. - Symptoms have improved. Addendum: 08/01/2019 10:13 Co-signature as Attending Physician, Zelalem Brenner MD I agree with the assessment and c liu plan of care. Signatures: Dispatcher [employer] EDNM Rayo Noriega RN RN sg Anderson, Corey, MD MD cha Attema, Lee, MINERAL ECONOMIST-C MINERAL ECONOMIST-Cla1 Jaspal Lucero RN RN jd3 Corrections: (The following items were deleted from the chart) 07/29 20:31 18:44 Abdomen Pelvis W Con+CT.RAD.BRZ ordered. EDNM EDNM 21:58 21:39 07/29/2019 21:39 Discharged to Home. Impression: Abdominal tenderness; jd3 Constipation; End stage renal disease - on HD M,W,F. Condition is Stable. Discharge Instructions: Abdominal Pain, Adult, Constipation, Adult, How to Take a Sitz Bath, Constipation, Adult, Xlfz-wg-Yyut, Abdominal Pain, Adult, Tyoj-de-Wlwy, End-Stage Kidney Disease, Dialysis Diet, Tnsr-ar-Fqyw. Prescriptions for Lactulose 10 gram/15 mL Oral Solution - take 30 milliliter by ORAL route once daily; 300 milliliter, Dulcolax 10 mg Rectal Suppository - insert 1 suppository by RECTAL route every 12 hours As needed; 10 suppository. and Forms are Medication Reconciliation Form, Thank You Letter, Antibiotic Education, Prescription Opioid Use. Follow up: Private Physician; When: 2 - 3 days; Reason: Recheck today's complaints, Continuance of care, Re-evaluation by your physician. Follow up: Nick Carrington; When: 2 - 3 days; Reason: Recheck today's complaints, Re-evaluation by your physician. Problem is new. Symptoms have improved. la1
--- NOTE | 2019-07-29 21:41 | ER ---
Nurse's Notes [facility] Name: Archana Woo Age: 43 yrs Sex: Female : 1975 Arrival Date: 07/29/2019 Time: 18:13 Bed 6 Private MD: Diagnosis: Abdominal tenderness;Constipation;End stage renal disease-on HD M,W,F Presentation: 07/29 18:15 Presenting complaint: EMS states: pt was picked up from dialysis due to having sg abdominal pain, pt reports having last BM about 3 days ago, attempted a BM after laxative this morning, reports no BM and no relief. Transition of care: patient was not received from another setting of care. Onset of symptoms was July 29, 2019. Risk Assessment: Do you want to hurt yourself or someone else? Patient reports no desire to harm self or others. Initial Sepsis Screen: Does the patient meet any 2 criteria? No. Patient's initial sepsis screen is negative. Does the patient have a suspected source of infection? Yes: Acute abdominal pain. Care prior to arrival: None. 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 - Social history:: Smoking status: Patient/guardian denies using tobacco. - Ebola Screening: : Patient negative for fever greater than or equal to 101.5 degrees Fahrenheit, and additional compatible Ebola Virus Disease symptoms Patient denies exposure to infectious person Patient denies travel to an Ebola-affected area in the 21 days before illness onset No symptoms or risks identified at this time. - Family history:: not pertinent. Screenin:17 Abuse screen: Denies threats or abuse. Nutritional screening: No deficits noted. jd3 Tuberculosis screening: No symptoms or risk factors identified. Fall Risk Ambulatory Aid- None/Bed Rest/Nurse Assist (0 pts). Gait- Normal/Bed Rest/Wheelchair (0 pts) Mental Status- Oriented to own ability (0 pts). Total Lr Fall Scale indicates No Risk (0-24 pts). Assessment: 18:17 General: Appears in no apparent distress. well groomed, well developed, well nourished, sg Behavior is cooperative, agitated, restless. Pain: Complains of pain in right lower quadrant and left lower quadrant Quality of pain is described as aching, sharp. Neuro: Level of Consciousness is awake, alert, obeys commands, Oriented to person, place, time. Cardiovascular: Capillary refill is brisk in bilateral fingers Patient's skin is warm and dry. Chest pain is denied. Respiratory: Airway is patent Respiratory effort is even, unlabored, Respiratory pattern is regular, symmetrical. GI: Abdomen is flat, non-distended, Last BM was July 26, 2019. Bowel sounds present X 4 quads. Abd is soft X 4 quads Abdomen is tender to palpation in suprapubic area, right lower quadrant and left lower quadrant. : No signs and/or symptoms were reported regarding the genitourinary system. EENT: No signs and/or symptoms were reported regarding the EENT system. Derm: Skin is intact, is healthy with good turgor, Skin is dry, Skin is normal, Skin temperature is warm. Musculoskeletal: Circulation, motion, and sensation intact. Range of motion: intact in all extremities. 19:15 General: Appears in no apparent distress. uncomfortable, Behavior is cooperative, jd3 agitated, restless. Pain: Complains of pain in abdomen Quality of pain is described as aching, sharp, tender. Neuro: Level of Consciousness is awake, alert, obeys commands, Oriented to person, place, time, situation. Cardiovascular: Denies chest pain, Capillary refill < 3 seconds Patient's skin is warm and dry. Respiratory: Airway is patent Respiratory effort is even, unlabored, Respiratory pattern is regular, symmetrical, Denies cough, shortness of breath. GI: Abdomen is non-distended, Abd is soft X 4 quads Abdomen is tender to palpation in right lower quadrant and left lower quadrant. : No signs and/or symptoms were reported regarding the genitourinary system. EENT: No signs and/or symptoms were reported regarding the EENT system. Derm: Skin is intact, Skin is dry, Skin is normal, Skin temperature is warm. Musculoskeletal: Circulation, motion, and sensation intact. Range of motion: intact in all extremities. 19:38 Reassessment: CT notified that pt finished PO contrast. jd3 20:21 Reassessment: Patient appears in no apparent distress at this time. Patient and/or jd3 family updated on plan of care and expected duration. Pain level reassessed. Patient is alert, oriented x 3, equal unlabored respirations, skin warm/dry/pink. awaiting CT scan. 21:25 Reassessment: Patient appears in no apparent distress at this time. Patient and/or jd3 family updated on plan of care and expected duration. Pain level reassessed. Patient is alert, oriented x 3, equal unlabored respirations, skin warm/dry/pink. pt resting in bed. reporting pain medication has some relief. 21:40 Reassessment: provider at bedside performing digital disimpaction. jd3 21:55 Reassessment: Patient appears in no apparent distress at this time. Patient and/or jd3 family updated on plan of care and expected duration. Pain level reassessed. Patient is alert, oriented x 3, equal unlabored respirations, skin warm/dry/pink. pt reported understanding of discharge instructions. assisted pt to car with wheelchair. Patient states feeling better. Vital Signs: 18:16 BP 119 / 73; Pulse 92; Resp 16; Temp 97.7(O); Pulse Ox 100% ; lt1 19:17 BP 147 / 60; Pulse 87; Resp 17 S; Pulse Ox 100% on R/A; jd3 20:22 BP 140 / 65; Pulse 88; Resp 18 S; Pulse Ox 100% on R/A; jd3 21:31 BP 148 / 74; Pulse 65; Resp 17 S; Pulse Ox 100% on R/A; jd3 ED Course: 18:13 Patient arrived in ED. sg 18:15 Arm band placed on. sg 18:17 Triage completed. sg 18:28 Zelalem Brenner MD is Attending Physician. davion 18:52 [facility]C [facility] la1 19:02 Jaspal Lucero RN is Primary Nurse. jd3 19:17 Patient has correct armband on for positive identification. Placed in gown. Bed in low jd3 position. Call light in reach. Side rails up X2. 20:43 Abdomen In Process Unspecified. EDMS 21:39 Nick Carrington MD is Referral Physician. la1 21:57 No provider procedures requiring assistance completed. IV discontinued, intact, jd3 bleeding controlled, No redness/swelling at site. Pressure dressing applied. Administered Medications: 19:15 Drug: morphine 4 mg Route: IVP; Site: right forearm; jd3 19:15 Drug: Zofran 4 mg Route: IVP; Site: right forearm; jd3 19:15 Drug: Dulcolax Suppository 10 mg Route: ID; jd3 19:15 Drug: Lactulose 60 grams Volume: 45 ml; Route: PO; jd3 20:58 Drug: morphine 4 mg Route: IVP; Site: right forearm; jd3 20:59 Drug: Zofran 4 mg Route: IVP; Site: right forearm; jd3 Outcome: 21:39 Discharge ordered by . la1 21:57 Discharged to home via wheelchair, with family. jd3 21:57 Condition: stable 21:57 Discharge instructions given to patient, family, Instructed on discharge instructions, follow up and referral plans. medication usage, Demonstrated understanding of instructions, follow-up care, medications, Prescriptions given X 2. 21:58 Patient left the ED. jd3 Signatures: Dispatcher [employer] EDMS Rayo Noriega RN RN sg Anderson, Corey, MD MD cha Attema, Lee, ROADABILITY MACHINE OPERATOR-C ROADABILITY MACHINE OPERATOR-Cla1 Jaspal Lucero RN RN jd3 Tran, Leah 1
[2019-07-29 23:50] VITALS: TEMP 97.7; O2SAT 100
[2019-07-29 23:54] VITALS: BP 148/74
== END 2019-07-29 21:58 | disposition home or self-care (01) ==
LOC: ER 18:10
DX: R10.819 Abdominal tenderness, unspecified site (principal); K59.00 Constipation, unspecified; N18.6 End stage renal disease; Z99.2 Dependence on renal dialysis; Z85.850 Personal history of malignant neoplasm of thyroid; H54.7 Unspecified visual loss
CPT/HCPCS: 85025; 36415; 84703; 80053; 74176; 96375; 96374; 99284; J2405 ×3

== ENCOUNTER 2019-09-12 09:50 | Emergency (ER) | payer OTHER ==
--- OUTSIDE RECORDS SUMMARY | 2019-09-12 09:56 | XMS REPORT ---
:1975 [facility] [address] [place] [address] Care Team Providers Name Role Phone GINI MCDANIEL Unavailable Unavailable ARON EDWARDS Unavailable Unavailable Payers Payer Name Policy Type Policy Number Effective Date Expiration Date Problems This patient has no known problems. Allergies, Adverse Reactions, Alerts Allergy Allergy Status Severity Reaction(s) Onset Inactive Treating Comments Name Type Date Date Clinician No Known DA Active U 2019-08 Allergies 06 00:00:0 0 Medications This patient has no known medications. Procedures and Interventions Procedure Date / Time Performed Performing Clinician [id number] 2019-05-18 00:00:00 [id number] 2019-05-18 00:00:00 [id number] 2019-05-18 00:00:00 Encounters Start End Encounter Admission Attending Care Care Encounter Date/Time Date/Time Type Type Clinicians Facility Department ID 2019-04-12 Inpatient [facility] [id number] 13:57:46 Results Test Description Test Time Test Comments Text Results Atomic Results Result Comments GLUCOSE BEDSIDE TESTING 2019-08-23 18:41:00 Test Item Value Reference Range Comments GLUCOSE BEDSIDE TESTING (test code=GLUBED) 83 MG/DL 60-99 BASIC METABOLIC [id number] 15:04:00 Test Item Value Reference Range Comments SODIUM (test code=NA) 136 MMOL/L 137-145 POTASSIUM (test code=K) 3.9 MMOL/L 3.5-5.1 CHLORIDE (test code=CL) 97 MMOL/L 98-107 CARBON DIOXIDE (test code=CO2) 22 MMOL/L 22-30 ANION GAP (test code=GAP) 21 MMOL/L 14-24 GLUCOSE (test code=GLU) 183 MG/DL 74-106 BLOOD UREA NITROGEN (test 30 MG/DL 7-17 code=BUN) GLOMERULAR FILTRATION RATE 6 Reporting units: ml/min/1.73 (test code=GFR) m2 (Modified MDRD Formula)Reference Range: > or=60 ml/min/1.73 m2 CREATININE (test code=CREAT) 6.90 MG/DL 0.52-1.04 CALCIUM (test code=CA) 9.1 MG/DL 8.4-10.2 BASIC METABOLIC [id number] 15:00:00 Test Item Value Reference Range Comments SODIUM (test code=NA) 136 MMOL/L 137-145 POTASSIUM (test code=K) 3.9 MMOL/L 3.5-5.1 CHLORIDE (test code=CL) 97 MMOL/L 98-107 CARBON DIOXIDE (test code=CO2) MMOL/L 22-30 GLUCOSE (test code=GLU) MG/DL 74-106 BLOOD UREA NITROGEN (test code=BUN) MG/DL 7-17 GLOMERULAR FILTRATION RATE (test code=GFR) CREATININE (test code=CREAT) MG/DL 0.52-1.04 CALCIUM (test code=CA) MG/DL 8.7-9.7 HCG SERUM [id number] 14:59:00 Test Item Value Reference Range Comments HCG SERUM QUAL (test code=HCGQL) NEGATIVE NEGATIVE PROTHROMBIN [id number] 14:56:00 Test Item Value Reference Range Comments PROTHROMBIN TIME PATIENT (test 9.8 SECONDS 9.6-11.6 code=PTP) INTERNATIONAL NORMAL RATIO 0.9 0.8-1.1 The INR is to be used only (test code=INR) for monitoring oral anticoagulanttherapy. INDICATION INR VALUE 1. Prophylaxis, deep venous thrombosis, including high risk surgery. 2.0 - 3.0 2. Prophylaxis, deep venous thrombosis, hip surgery, treatment for deep venous thrombosis or pulmonary prevention of systemic embolism in patients with valvular heart disease, atrial fibrillation, tissue heart valve, or acute myocardial infarction. 2.0 - 3.0 3. Mechanical prosthesis heart valves, recurrent systemic embolism. 3.0 - 4.5 PTT [id number] 14:56:00 Test Item Value Reference Range Comments PTT ACTIVATED (test code=APTT) 27.9 SECONDS 22.0-33.0 CBC W/AUTO [id number] 14:43:00 Test Item Value Reference Range Comments WHITE BLOOD CELL (test code=WBC) 7.7 K/MM3 3.8-9.8 RED BLOOD CELL (test code=RBC) 3.72 M/MM3 3.58-4.97 HEMOGLOBIN (test code=HGB) 11.5 G/DL 11.2-14.9 HEMATOCRIT (test code=HCT) 35.0 % 33.2-43.5 MEAN CELL VOLUME (test code=MCV) 94 fL 80.7-99.1 MEAN CELL HGB (test code=MCH) 30.9 pg 27.0-34.1 MEAN CELL HGB CONCETRATION (test code=MCHC) 32.9 % 32.2-35.7 RED CELL DISTRIBUTION WIDTH (test code=RDW) 14.4 % 12.1-15.2 PLATELET COUNT (test code=PLT) 249 K/MM3 129-368 MEAN PLATELET VOLUME (test code=MPV) 10.0 fl 7.4-10.4 NEUTROPHIL % (test code=NT%) 75.2 % 43-75 IMMATURE GRANULOCYTE % (test code=IG%) 0.6 % 0.0-2.0 LYMPHOCYTE % (test code=LY%) 17.2 % 14-44 MONOCYTE % (test code=MO%) 6.1 % 4-13 EOSINOPHIL % (test code=EO%) 0.3 % 0-6 BASOPHIL % (test code=BA%) 0.6 % 0-2 NUCLEATED RBC % (test code=NRBC%) 0.0 % 0-1.0 NEUTROPHIL # (test code=NT#) 5.82 K/mm3 2.0-7.6 IMMATURE GRANULOCYTE # (test code=IG#) 0.05 x10 3/uL 0-0.03 LYMPHOCYTE # (test code=LY#) 1.33 K/mm3 1.0-3.8 MONOCYTE # (test code=MO#) 0.47 K/mm3 0.1-0.8 EOSINOPHIL # (test code=EO#) 0.02 K/mm3 0.0-0.2 BASOPHIL # (test code=BA#) 0.05 K/mm3 0.0-0.2 NUCLEATED RBC # (test code=NRBC#) 0.00 K/mm3 0.0-0.1 RAD, CHEST, 1 VIEW, NON [id number] 11:27:00Reason for exam:->r/o pneumoniaShould this be performed at the bedside?->YesFINAL REPORT RAD, CHEST, 1 VIEW, NON DEPT INDICATION: r/o pneumonia COMPARISON: July 16, 2019 FINDINGS: Portable frontal view of the chest. IMPRESSION: Support Lines: Stable left IJ dual-lumen central venous catheter. Lungs and pleura: Lungs are clear. No effusion. No pneumothorax.Heart and mediastinum: Stable contours. Additional findings: None. Signed: JR Mccollum Robert MDReport Verified Date/Time: 07/18/2019 11:27:35 Reading Location: [facility] Radiology Reading Room POCT-GLUCOSE [id number] 08:34:00 Test Item Value Reference Range Comments POC-GLUCOSE METER (BEAKER) 126 mg/dL 70-110 : TESTED AT [facility] [address] [facility] (test yjqq=5844) [facility], [id number]: Instructor Product Inspection/Pharmacovigilance Specialist [id number] for Baldomero Kuo BASIC METABOLIC [id number] 06:56:00 Test Item Value Reference Range Comments SODIUM (BEAKER) (test 134 meq/L 136-145 cezi=291) POTASSIUM (BEAKER) (test 5.0 meq/L 3.5-5.1 fdxy=738) CHLORIDE (BEAKER) (test 103 meq/L 98-107 ovqb=927) CO2 (BEAKER) (test 25 meq/L 22-29 adpz=439) BLOOD UREA NITROGEN 28 mg/dL 7-21 (BEAKER) (test szjl=433) CREATININE (BEAKER) (test 5.40 mg/dL 0.57-1.25 vtmk=722) GLUCOSE RANDOM (BEAKER) 146 mg/dL 70-105 (test bakb=884) CALCIUM (BEAKER) (test 8.8 mg/dL 8.4-10.2 adnx=010) EGFR (BEAKER) (test 9 mL/min/1.73 sq m ESTIMATED GFR IS NOT izrf=5428) ACCURATE CREATININE CLEARANCE IN PREDICTING GLOMERULAR FILTRATION RATE. ESTIMATED GFR IS NOT APPLICABLE FOR DIALYSIS PATIENTS. [id number] 06:45:00 Test Item Value Reference Range Comments PHOSPHORUS (BEAKER) (test wxuz=185) 4.6 mg/dL 2.3-4.7 [id number] 06:45:00 Test Item Value Reference Range Comments MAGNESIUM (BEAKER) (test uphh=447) 2.0 mg/dL 1.6-2.6 CBC W/PLT COUNT & AUTO [id number] 05:35:00 Test Item Value Reference Range Comments WHITE BLOOD CELL COUNT (BEAKER) (test hltz=187) 13.0 K/ L 3.5-10.5 RED BLOOD CELL COUNT (BEAKER) (test eznm=541) 3.80 M/ L 3.93-5.22 HEMOGLOBIN (BEAKER) (test yzih=218) 11.3 GM/DL 11.2-15.7 HEMATOCRIT (BEAKER) (test gwxw=020) 35.2 % 34.1-44.9 MEAN CORPUSCULAR VOLUME (BEAKER) (test qawn=624) 92.6 fL 79.4-94.8 MEAN CORPUSCULAR HEMOGLOBIN (BEAKER) (test 29.7 pg 25.6-32.2 enia=188) MEAN CORPUSCULAR HEMOGLOBIN CONC (BEAKER) (test 32.1 GM/DL 32.2-35.5 myia=144) RED CELL DISTRIBUTION WIDTH (BEAKER) (test 13.6 % 11.7-14.4 wsmr=016) PLATELET COUNT (BEAKER) (test syik=292) 233 K/CU MM 150-450 MEAN PLATELET VOLUME (BEAKER) (test fdzh=174) 9.5 fL 9.4-12.3 NUCLEATED RED BLOOD CELLS (BEAKER) (test 0 /100 WBC 0-0 eqnt=643) NEUTROPHILS RELATIVE PERCENT (BEAKER) (test 70 % jxdo=121) LYMPHOCYTES RELATIVE PERCENT (BEAKER) (test 20 % fcmk=064) MONOCYTES RELATIVE PERCENT (BEAKER) (test 7 % udpf=627) EOSINOPHILS RELATIVE PERCENT (BEAKER) (test 2 % ntsn=362) BASOPHILS RELATIVE PERCENT (BEAKER) (test 1 % jqcg=637) NEUTROPHILS ABSOLUTE COUNT (BEAKER) (test 9.09 K/ L 1.56-6.13 peof=791) LYMPHOCYTES ABSOLUTE COUNT (BEAKER) (test 2.65 K/ L 1.18-3.74 qzdc=417) MONOCYTES ABSOLUTE COUNT (BEAKER) (test 0.93 K/ L 0.24-0.36 fzhp=953) EOSINOPHILS ABSOLUTE COUNT (BEAKER) (test 0.24 K/ L 0.04-0.36 qjkk=682) BASOPHILS ABSOLUTE COUNT (BEAKER) (test 0.07 K/ L 0.01-0.08 josh=035) IMMATURE GRANULOCYTES-RELATIVE PERCENT (BEAKER) 0 % 0-1 (test fnmm=6842) PROTHROMBIN [id number] 05:24:00 Test Item Value Reference Range Comments PROTIME (BEAKER) (test dnpm=555) 12.2 seconds 11.9-14.2 INR (BEAKER) (test ieft=717) 1.0 <=5.9 Effective 01/12/2019: PT Reference Range ChangeNew: 11.9-14.2 Previous: 11.7- 14.7RECOMMENDED COUMADIN/WARFARIN INR THERAPY RANGESSTANDARD DOSE: 2.0-3.0 Includes: PROPHYLAXIS for venous thrombosis, systemic embolization; TREATMENT for venous thrombosis and/or pulmonary embolus.HIGH RISK: Target INR is2.5-3.5 for patients wiht mechanical heart valves.POCT-GLUCOSE [id number] 21:08:00 Test Item Value Reference Range Comments POC-GLUCOSE METER (BEAKER) 191 mg/dL 70-110 : TESTED AT [facility] [address] [facility] (test cnsn=0718) [facility], [id number]: Instructor Product Inspection/Pharmacovigilance Specialist [id number] for Keith Bowens POCT-GLUCOSE [id number] 17:20:00 Test Item Value Reference Range Comments POC-GLUCOSE METER (BEAKER) 168 mg/dL 70-110 : [facility] [address] [facility] wisb[facility]2304[facility], [address]: Instructor Product Inspection/Pharmacovigilance Specialist [id number] for MAVIS BURRIS POCT-GLUCOSE [id number] 12:49:00 Test Item Value Reference Range Comments POC-GLUCOSE METER (BEAKER) 221 mg/dL 70-110 : TESTED AT [facility] [address] [facility] (test ffqs=7398) [facility], [address]: Instructor Product Inspection/Pharmacovigilance Specialist [id number] for MAVIS BURRIS SCREEN, [id number] 11:54:00 Test Item Value Reference Range Comments TEST URINE (BEAKER) (test blap=104) Negative POCT-GLUCOSE [id number] 09:11:00 Test Item Value Reference Range Comments POC-GLUCOSE METER (BEAKER) 112 mg/dL 70-110 : TESTED AT [address] (test whuv=0402) [facility], [id number]: Instructor Product Inspection/Pharmacovigilance Specialist [id number] for MAVIS BURRIS BASIC METABOLIC [id number] 06:50:00 Test Item Value Reference Range Comments SODIUM (BEAKER) (test 136 meq/L 136-145 tjvh=326) POTASSIUM (BEAKER) (test 4.8 meq/L 3.5-5.1 sqbt=352) CHLORIDE (BEAKER) (test 103 meq/L 98-107 zutc=074) CO2 (BEAKER) (test 26 meq/L 22-29 ajfc=679) BLOOD UREA NITROGEN 16 mg/dL 7-21 (BEAKER) (test okla=994) CREATININE (BEAKER) (test 3.77 mg/dL 0.57-1.25 athh=948) GLUCOSE RANDOM (BEAKER) 120 mg/dL 70-105 (test rcgg=758) CALCIUM (BEAKER) (test 8.9 mg/dL 8.4-10.2 tbqh=396) EGFR (BEAKER) (test 13 mL/min/1.73 sq m ESTIMATED GFR IS NOT cfeo=6536) ACCURATE CREATININE CLEARANCE IN PREDICTING GLOMERULAR FILTRATION RATE. ESTIMATED GFR IS NOT APPLICABLE FOR DIALYSIS PATIENTS. [id number] 06:38:00 Test Item Value Reference Range Comments PHOSPHORUS (BEAKER) (test ohrp=068) 3.9 mg/dL 2.3-4.7 [id number] 06:38:00 Test Item Value Reference Range Comments MAGNESIUM (BEAKER) (test qvlk=523) 1.9 mg/dL 1.6-2.6 PROTHROMBIN [id number] 06:12:00 Test Item Value Reference Range Comments PROTIME (BEAKER) (test pccr=150) 12.1 seconds 11.9-14.2 INR (BEAKER) (test kjgb=952) 0.9 <=5.9 Effective 01/12/2019: PT Reference Range ChangeNew: 11.9-14.2 Previous: 11.7- 14.7RECOMMENDED COUMADIN/WARFARIN INR THERAPY RANGESSTANDARD DOSE: 2.0-3.0 Includes: PROPHYLAXIS for venous thrombosis, systemic embolization; TREATMENT for venous thrombosis and/or pulmonary embolus.HIGH RISK: Target INR is2.5-3.5 for patients wiht mechanical heart valves.CBC W/PLT COUNT & AUTO [id number] 06:06:00 Test Item Value Reference Range Comments WHITE BLOOD CELL COUNT (BEAKER) (test nlqv=135) 8.3 K/ L 3.5-10.5 RED BLOOD CELL COUNT (BEAKER) (test rcij=374) 3.62 M/ L 3.93-5.22 HEMOGLOBIN (BEAKER) (test brbx=698) 11.0 GM/DL 11.2-15.7 HEMATOCRIT (BEAKER) (test ldvt=006) 33.0 % 34.1-44.9 MEAN CORPUSCULAR VOLUME (BEAKER) (test paia=126) 91.2 fL 79.4-94.8 MEAN CORPUSCULAR HEMOGLOBIN (BEAKER) (test 30.4 pg 25.6-32.2 ilio=626) MEAN CORPUSCULAR HEMOGLOBIN CONC (BEAKER) (test 33.3 GM/DL 32.2-35.5 xvao=404) RED CELL DISTRIBUTION WIDTH (BEAKER) (test 13.9 % 11.7-14.4 wusb=074) PLATELET COUNT (BEAKER) (test iywt=157) 228 K/CU MM 150-450 MEAN PLATELET VOLUME (BEAKER) (test skrz=664) 9.5 fL 9.4-12.3 NUCLEATED RED BLOOD CELLS (BEAKER) (test 0 /100 WBC 0-0 qwim=813) NEUTROPHILS RELATIVE PERCENT (BEAKER) (test 60 % muoj=089) LYMPHOCYTES RELATIVE PERCENT (BEAKER) (test 30 % jgjy=976) MONOCYTES RELATIVE PERCENT (BEAKER) (test 8 % ljyk=011) EOSINOPHILS RELATIVE PERCENT (BEAKER) (test 2 % lvic=737) BASOPHILS RELATIVE PERCENT (BEAKER) (test 1 % vfti=391) NEUTROPHILS ABSOLUTE COUNT (BEAKER) (test 4.92 K/ L 1.56-6.13 hwpc=862) LYMPHOCYTES ABSOLUTE COUNT (BEAKER) (test 2.43 K/ L 1.18-3.74 qquo=630) MONOCYTES ABSOLUTE COUNT (BEAKER) (test 0.68 K/ L 0.24-0.36 wpjs=657) EOSINOPHILS ABSOLUTE COUNT (BEAKER) (test 0.15 K/ L 0.04-0.36 iyef=328) BASOPHILS ABSOLUTE COUNT (BEAKER) (test 0.05 K/ L 0.01-0.08 akzz=692) IMMATURE GRANULOCYTES-RELATIVE PERCENT (BEAKER) 0 % 0-1 (test culs=9152) [id number] 04:27:00 Test Item Value Reference Range Comments RPR SCREEN (BEAKER) (test qorh=876) Nonreactive Nonreactive MR, MRA, BRAIN, WITHOUT [id number] 03:28:00Reason for exam:-> StrokeWhat is the patient's [...] 07/17/2019 03:28:33 MR, MRA, NECK, WITHOUT IV [id number] 03:28:00FINAL REPORT MR, BRAIN, WITHOUT CONTRAST, MR, [...] Verified Date/Time: 07/17/2019 03:28:33 MR, BRAIN, WITHOUT [id number] 03:28: 00Reason for exam:->StrokeWhat is the patient's [...] Conley MDReport Verified Date/Time: 07/17/2019 03:28:33 POCT-GLUCOSE [id number] 21: 16:00 Test Item Value Reference Range Comments POC-GLUCOSE METER (BEAKER) 143 mg/dL 70-110 : TESTED AT [address] (test oubo=6296) [facility], [address]: Instructor Product Inspection/Pharmacovigilance Specialist [id number] for JANELL VIVAR POCT-GLUCOSE [id number] 17:33:00 Test Item Value Reference Range Comments POC-GLUCOSE METER (BEAKER) 108 mg/dL 70-110 : TESTED AT [address] (test jczb=0911) [facility], [address]: Instructor Product Inspection/Pharmacovigilance Specialist [id number] for TAVON VANEGAS POCT-GLUCOSE [id number] 17:25:00 Test Item Value Reference Range Comments POC-GLUCOSE METER (BEAKER) 155 mg/dL 70-110 : TESTED AT [address] (test fxxa=9746) [facility], [id number]: Instructor Product Inspection/Pharmacovigilance Specialist [id number] for SIMON SALMON HEPATITIS B SURFACE [id number] 14:30:00 Test Item Value Reference Range Comments HEPATITIS B SURFACE ANTIGEN (2) (BEAKER) (test Nonreactive Nonreactive bpqr=9712) POCT-GLUCOSE [id number] 12:17:00 Test Item Value Reference Range Comments POC-GLUCOSE METER (BEAKER) 146 mg/dL 70-110 : TESTED AT [address] (test iiyl=2107) [facility], [address]: Instructor Product Inspection/Pharmacovigilance Specialist [id number] for MAVIS BURRIS BASIC METABOLIC [id number] 09:26:00 Test Item Value Reference Range Comments SODIUM (BEAKER) (test 135 meq/L 136-145 bfry=038) POTASSIUM (BEAKER) (test 5.0 meq/L 3.5-5.1 gdml=320) CHLORIDE (BEAKER) (test 104 meq/L 98-107 lldl=665) CO2 (BEAKER) (test 21 meq/L 22-29 qtqg=781) BLOOD UREA NITROGEN 46 mg/dL 7-21 (BEAKER) (test kfnw=911) CREATININE (BEAKER) (test 6.99 mg/dL 0.57-1.25 qvbu=970) GLUCOSE RANDOM (BEAKER) 91 mg/dL 70-105 (test xnen=571) CALCIUM (BEAKER) (test 8.6 mg/dL 8.4-10.2 cbjz=418) EGFR (BEAKER) (test 6 mL/min/1.73 sq m ESTIMATED GFR IS NOT rjqc=8633) ACCURATE CREATININE CLEARANCE IN PREDICTING GLOMERULAR FILTRATION RATE. ESTIMATED GFR IS NOT APPLICABLE FOR DIALYSIS PATIENTS. POCT-GLUCOSE [id number] 08:27:00 Test Item Value Reference Range Comments POC-GLUCOSE METER (BEAKER) 106 mg/dL 70-110 : TESTED AT [address] (test akku=9913) [facility], [address]: Instructor Product Inspection/Pharmacovigilance Specialist [id number] for SIMON SALMON POCT-GLUCOSE [id number] 07:46:00 Test Item Value Reference Range Comments POC-GLUCOSE METER (BEAKER) 171 mg/dL 70-110 : TESTED AT [address] (test gzgc=1104) [facility], [address]: Instructor Product Inspection/Pharmacovigilance Specialist [id number] for YASMINE SANABRIA RAD, CHEST, 1 VIEW, NON [id number] 07:36:00Reason for exam:-> baselineShould this be performed [...] MDReport Verified Date/Time: 2018 07:36:01 Reading Location: [facility] C013Y CT Body Reading Room HEMOGLOBIN [id number] 06:42:00 Test Item Value Reference Range Comments HEMOGLOBIN A1C (BEAKER) (test tbsf=083) 9.5 % 4.3-6.1 BASIC METABOLIC [id number] 06:27:00 Test Item Value Reference Range Comments SODIUM (BEAKER) (test 131 meq/L 136-145 rgeu=643) POTASSIUM (BEAKER) (test 6.5 meq/L 3.5-5.1 No hemolysis gtov=418) CHLORIDE (BEAKER) (test 100 meq/L 98-107 msry=055) CO2 (BEAKER) (test 23 meq/L 22-29 axta=998) BLOOD UREA NITROGEN 45 mg/dL 7-21 (BEAKER) (test orlq=317) CREATININE (BEAKER) (test 6.82 mg/dL 0.57-1.25 effn=152) GLUCOSE RANDOM (BEAKER) 535 mg/dL 70-105 (test sfwl=303) CALCIUM (BEAKER) (test 8.2 mg/dL 8.4-10.2 vjys=120) EGFR (BEAKER) (test 7 mL/min/1.73 sq m ESTIMATED GFR IS NOT kzlk=4422) ACCURATE CREATININE CLEARANCE IN PREDICTING GLOMERULAR FILTRATION RATE. ESTIMATED GFR IS NOT APPLICABLE FOR DIALYSIS PATIENTS. HIV-1 ANTIGEN WITH HIV-1/2 [id number] 05:52:00 Test Item Value Reference Range Comments HIV-1 ANTIGEN WITH HIV 1\T\2 ANTIBODY (2) Nonreactive Nonreactive (BEAKER) (test mmte=9881) POCT-GLUCOSE [id number] 05:38:00 Test Item Value Reference Range Comments POC-GLUCOSE METER (BEAKER) 420 mg/dL 70-110 : Notified RN/MD: TESTED AT (test mpvv=5094) [facility] [address] [facility], [address]: Instructor Product Inspection/Pharmacovigilance Specialist [id number] for YASMINE SANABRIA TSH/FREE T4 IF [id number] 05:11:00 Test Item Value Reference Range Comments THYROID STIMULATING HORMONE (BEAKER) (test 0.87 uIU/mL 0.35-4.94 jrgj=776) VITAMIN B12 AND [id number] 05:11:00 Test Item Value Reference Range Comments VITAMIN B12 (BEAKER) (test bvkf=835) 525 pg/mL 213-816 FOLATE (BEAKER) (test jswh=770) 6.5 ng/mL >=7.0 BASIC METABOLIC [id number] 04:57:00 Test Item Value Reference Range Comments SODIUM (BEAKER) (test 130 meq/L 136-145 hizr=888) POTASSIUM (BEAKER) (test 6.7 meq/L 3.5-5.1 No hemolysis oedu=219) CHLORIDE (BEAKER) (test 99 meq/L 98-107 dhed=506) CO2 (BEAKER) (test 23 meq/L 22-29 apph=372) BLOOD UREA NITROGEN 44 mg/dL 7-21 (BEAKER) (test psef=678) CREATININE (BEAKER) (test 6.74 mg/dL 0.57-1.25 jpvp=808) GLUCOSE RANDOM (BEAKER) 616 mg/dL 70-105 (test gokm=329) CALCIUM (BEAKER) (test 8.2 mg/dL 8.4-10.2 dttu=018) EGFR (BEAKER) (test 7 mL/min/1.73 sq m ESTIMATED GFR IS NOT ivnq=9180) ACCURATE CREATININE CLEARANCE IN PREDICTING GLOMERULAR FILTRATION RATE. ESTIMATED GFR IS NOT APPLICABLE FOR DIALYSIS PATIENTS. [id number] 04:47:00 Test Item Value Reference Range Comments PHOSPHORUS (BEAKER) (test ojbv=443) 5.5 mg/dL 2.3-4.7 [id number] 04:47:00 Test Item Value Reference Range Comments MAGNESIUM (BEAKER) (test piyt=388) 2.0 mg/dL 1.6-2.6 LIPID [id number] 04:47:00 Test Item Value Reference Range Comments TRIGLYCERIDES (BEAKER) (test uvoz=609) 100 mg/dL CHOLESTEROL (BEAKER) (test rmyp=382) 177 mg/dL HDL CHOLESTEROL (BEAKER) (test laoy=580) 48 mg/dL LDL CHOLESTEROL CALCULATED (BEAKER) (test 109 mg/dL xgoi=966) Triglyceride Reference Range: Low Risk <150 Borderline 150- 199 High Risk 200-499 Very High Risk >=500Cholesterol Reference Range: Low Risk <200 Borderline 200-239 High Risk > 240HDL Cholesterol Reference Range: Low Risk >=60 High Risk <40LDL Cholesterol Reference Range: Optimal <100 Near Optimal 100-129 Borderline 130-159 High 160-189 Very High >=190HEPATIC FUNCTION [id number] 04:47:00 Test Item Value Reference Range Comments TOTAL PROTEIN (BEAKER) (test bejj=978) 6.3 gm/dL 6.0-8.3 ALBUMIN (BEAKER) (test util=8197) 3.0 g/dL 3.5-5.0 BILIRUBIN TOTAL (BEAKER) (test pwdz=106) 0.4 mg/dL 0.2-1.2 BILIRUBIN DIRECT (BEAKER) (test wsrv=443) 0.2 mg/dL 0.1-0.5 ALKALINE PHOSPHATASE (BEAKER) (test cqjr=945) 182 U/L 40-150 AST (SGOT) (BEAKER) (test qsud=640) 63 U/L 5-34 ALT (SGPT) (BEAKER) (test sepv=382) 99 U/L 6-55 PROTHROMBIN [id number] 04:11:00 Test Item Value Reference Range Comments PROTIME (BEAKER) (test lvre=077) 12.3 seconds 11.9-14.2 INR (BEAKER) (test mbej=352) 1.0 <=5.9 Effective 01/12/2019: PT Reference Range ChangeNew: 11.9-14.2 Previous: 11.7- 14.7RECOMMENDED COUMADIN/WARFARIN INR THERAPY RANGESSTANDARD DOSE: 2.0-3.0 Includes: PROPHYLAXIS for venous thrombosis, systemic embolization; TREATMENT for venous thrombosis and/or pulmonary embolus.HIGH RISK: Target INR is2.5-3.5 for patients wiht mechanical heart valves.CBC W/PLT COUNT & AUTO [id number] 04:03:00 Test Item Value Reference Range Comments WHITE BLOOD CELL COUNT (BEAKER) (test fegf=361) 6.9 K/ L 3.5-10.5 RED BLOOD CELL COUNT (BEAKER) (test lqgw=897) 3.60 M/ L 3.93-5.22 HEMOGLOBIN (BEAKER) (test ntja=504) 10.7 GM/DL 11.2-15.7 HEMATOCRIT (BEAKER) (test migt=149) 33.5 % 34.1-44.9 MEAN CORPUSCULAR VOLUME (BEAKER) (test gtxh=596) 93.1 fL 79.4-94.8 MEAN CORPUSCULAR HEMOGLOBIN (BEAKER) (test 29.7 pg 25.6-32.2 gars=682) MEAN CORPUSCULAR HEMOGLOBIN CONC (BEAKER) (test 31.9 GM/DL 32.2-35.5 opji=951) RED CELL DISTRIBUTION WIDTH (BEAKER) (test 13.8 % 11.7-14.4 gzhh=684) PLATELET COUNT (BEAKER) (test iezn=322) 235 K/CU MM 150-450 MEAN PLATELET VOLUME (BEAKER) (test mekk=794) 9.9 fL 9.4-12.3 NUCLEATED RED BLOOD CELLS (BEAKER) (test 0 /100 WBC 0-0 ctua=161) NEUTROPHILS RELATIVE PERCENT (BEAKER) (test 66 % lamj=586) LYMPHOCYTES RELATIVE PERCENT (BEAKER) (test 23 % aifa=440) MONOCYTES RELATIVE PERCENT (BEAKER) (test 8 % nyuh=069) EOSINOPHILS RELATIVE PERCENT (BEAKER) (test 2 % metv=949) BASOPHILS RELATIVE PERCENT (BEAKER) (test 1 % nfge=948) NEUTROPHILS ABSOLUTE COUNT (BEAKER) (test 4.55 K/ L 1.56-6.13 okht=635) LYMPHOCYTES ABSOLUTE COUNT (BEAKER) (test 1.61 K/ L 1.18-3.74 wfok=936) MONOCYTES ABSOLUTE COUNT (BEAKER) (test 0.58 K/ L 0.24-0.36 mlly=311) EOSINOPHILS ABSOLUTE COUNT (BEAKER) (test 0.12 K/ L 0.04-0.36 bmji=799) BASOPHILS ABSOLUTE COUNT (BEAKER) (test 0.05 K/ L 0.01-0.08 jsqm=012) IMMATURE GRANULOCYTES-RELATIVE PERCENT (BEAKER) 0 % 0-1 (test basa=2306) POCT-GLUCOSE [id number] 03:47:00 Test Item Value Reference Range Comments POC-GLUCOSE METER (BEAKER) > mg/dL 70-110 : Notified RN/MD: TESTED AT (test psvg=5163) [address], [address]: Instructor Product Inspection/Pharmacovigilance Specialist [id number] for SARAH SYLVIA FACTOR 5 LEIDEN PCR (THROMBOTIC RISK)2017-03-24 19:24:00 Test Item Value Reference Range Comments FACTOR V LEIDEN (BEAKER) Negative for the R506Q (Factor (test viud=006) V Leiden) mutation [place] [address] (BEAKER) Martínez Wang MD (electronic (test luxg=0444) signature) This test is a genotyping assay [...] [facility] of [facility] Path[facility]. It has not been cleared or approved by the U.S. Food and Drug Administration (FDA), since FDA approval is not required for clinical use of the test. Validation was done as required by the Clinical Laboratory Improvement Amendments of 1988.POCT-GLUCOSE [id number] 07:28:00 Test Item Value Reference Range Comments POC-GLUCOSE METER (BEAKER) 200 mg/dL 70-110 TESTED AT [facility] [address] [facility] (test rsyy=7185) [facility] [address] POCT-GLUCOSE [id number] 21:18:00 Test Item Value Reference Range Comments POC-GLUCOSE METER (BEAKER) 211 mg/dL 70-110 TESTED AT [facility] [address] [facility] (test xqbz=9991) [facility] [address] PROTEIN, RANDOM [id number] 19:43:00 Test Item Value Reference Range Comments PROTEIN, URINE (BEAKER) (test vvpa=9452) 286 mg/dL 0-14 CREATININE, RANDOM [id number] 18:27:00 Test Item Value Reference Range Comments CREATININE URINE (BEAKER) (test ocfq=772) 29.3 mg/dL Reference Range: No NormalsDILUTE SHIRA VIPER VENOM (DRVV)2017-03-19 12:47:00 Test Item Value Reference Range Comments PROTIME (BEAKER) (test 11.3 seconds 11.7-14.7 qghu=818) INR (BEAKER) (test gdjf=429) 0.8 <=5.9 PARTIAL THROMBOPLASTIN TIME 28.0 seconds 22.5-36.0 (BEAKER) (test oima=893) DRVV INTERPRETATION (BEAKER) Normal DRVV Results (test wyzl=7081) DRVV INTERPRETATION (BEAKER) Normal Hexagonal Phospholipid (test zeqs=107307) OCWA-YFCJMGDJZGR-190 (BEAKER) Martínez Wang MD (electronic (test meve=4591) signature) DRVV SCREEN RATIO (BEAKER) 0.84 <1.20 (test qceo=7420) Effective 12/20/2013: Test Method ChangeDRVV Screen Ratio, DRVV 1/1 Screen Ratio, DRVV Confirm Ratio,DRVV Normalized Ratio Reference Range: <1.2Protime Reference Range ChangeNew: 11.7-14.7 Previous: 9.8-12.0PTT Reference Range ChangeNew: 22.5-36.0 Previous: 25.8-34.5URINE [id number] 11:40:00 Test Item Value Reference Range Comments CULTURE (BEAKER) (test 20-29,000 col/mL skin lei reeg=3495) POCT-GLUCOSE [id number] 08:33:00 Test Item Value Reference Range Comments POC-GLUCOSE METER (BEAKER) 293 mg/dL 70-110 TESTED AT [facility] [address] [facility] (test kgiy=5925) [facility] [address] VITAMIN D, [id number] 07:49:00 Test Item Value Reference Range Comments VITAMIN D 25-OH (BEAKER) (test efnp=9785) < ng/mL 13.0-47.8 CBC W/PLT COUNT & AUTO [id number] 05:59:00 Test Item Value Reference Range Comments WHITE BLOOD CELL COUNT (BEAKER) (test wamb=943) 9.4 K/ L 3.5-10.5 RED BLOOD CELL COUNT (BEAKER) (test oaow=780) 4.16 M/ L 3.93-5.22 HEMOGLOBIN (BEAKER) (test nlss=642) 12.7 GM/DL 11.2-15.7 HEMATOCRIT (BEAKER) (test xvuj=203) 38.0 % 34.1-44.9 MEAN CORPUSCULAR VOLUME (BEAKER) (test hiji=824) 91.3 fL 79.4-94.8 MEAN CORPUSCULAR HEMOGLOBIN (BEAKER) (test 30.5 pg 25.6-32.2 kggq=056) MEAN CORPUSCULAR HEMOGLOBIN CONC (BEAKER) (test 33.4 GM/DL 32.2-35.5 osgv=256) RED CELL DISTRIBUTION WIDTH (BEAKER) (test 12.6 % 11.7-14.4 iueh=106) PLATELET COUNT (BEAKER) (test umlj=106) 329 K/CU MM 150-450 MEAN PLATELET VOLUME (BEAKER) (test enrb=942) 10.0 fL 9.4-12.3 NUCLEATED RED BLOOD CELLS (BEAKER) (test 0 /100 WBC 0-0 qvlg=861) NEUTROPHILS RELATIVE PERCENT (BEAKER) (test 68 % fuvt=132) LYMPHOCYTES RELATIVE PERCENT (BEAKER) (test 23 % ogbr=408) MONOCYTES RELATIVE PERCENT (BEAKER) (test 7 % rrkb=053) EOSINOPHILS RELATIVE PERCENT (BEAKER) (test 1 % ukpw=966) BASOPHILS RELATIVE PERCENT (BEAKER) (test 1 % qccz=541) NEUTROPHILS ABSOLUTE COUNT (BEAKER) (test 6.35 K/ L 1.56-6.13 cnns=158) LYMPHOCYTES ABSOLUTE COUNT (BEAKER) (test 2.16 K/ L 1.18-3.74 sxmc=681) MONOCYTES ABSOLUTE COUNT (BEAKER) (test 0.68 K/ L 0.24-0.36 znsd=260) EOSINOPHILS ABSOLUTE COUNT (BEAKER) (test 0.10 K/ L 0.04-0.36 zpwx=960) BASOPHILS ABSOLUTE COUNT (BEAKER) (test 0.06 K/ L 0.01-0.08 ilsn=911) IMMATURE GRANULOCYTES-RELATIVE PERCENT (BEAKER) 0 % 0-1 (test kohb=4978) BASIC METABOLIC [id number] 05:38:00 Test Item Value Reference Range Comments SODIUM (BEAKER) (test 135 meq/L 136-145 tppm=535) POTASSIUM (BEAKER) (test 4.1 meq/L 3.5-5.1 ttxb=749) CHLORIDE (BEAKER) (test 102 meq/L 98-107 tcty=286) CO2 (BEAKER) (test 25 meq/L 22-29 swud=570) BLOOD UREA NITROGEN 12 mg/dL 7-21 (BEAKER) (test eata=302) CREATININE (BEAKER) (test 1.99 mg/dL 0.57-1.25 uoes=115) GLUCOSE RANDOM (BEAKER) 290 mg/dL 70-105 (test jbqo=124) CALCIUM (BEAKER) (test 8.7 mg/dL 8.4-10.2 btfn=676) EGFR (BEAKER) (test 27 mL/min/1.73 sq m ESTIMATED GFR IS NOT omyj=8880) ACCURATE CREATININE CLEARANCE IN PREDICTING GLOMERULAR FILTRATION RATE. ESTIMATED GFR IS NOT APPLICABLE FOR DIALYSIS PATIENTS. [id number] 05:37:00 Test Item Value Reference Range Comments PHOSPHORUS (BEAKER) (test leif=288) 4.1 mg/dL 2.3-4.7 [id number] 05:37:00 Test Item Value Reference Range Comments MAGNESIUM (BEAKER) (test vvut=462) 1.7 mg/dL 1.6-2.6 PTH, [id number] 05:34:00 Test Item Value Reference Range Comments PARATHYROID HORMONE INTACT (BEAKER) (test 57.2 pg/mL 8.5-72.5 phxt=220) Effective 07/04/2014: Reference Range ChangeNew: 8.5-72.5 Previous: 15.0- 90.0CARDIOLIPIN ANTIBODIES, IGG AND [id number] 22:36:00 Test Item Value Reference Range Comments ANTICARDIOLIPIN IGG ANTIBODY (BEAKER) (test < GPL rkjg=878) ANTICARDIOLIPIN IGM ANTIBODY (BEAKER) (test 2.8 MPL kusc=817) Anticardiolipin IgG Result Interpretation:NEG: <20 GPL; U/mlPOS: >/=20 GPL; U/mlAnticardiolipin IgM Result Interpretation:NEG: <20 MPL; U/mlPOS: >/=20 MPL; U/mlPOCT-GLUCOSE [id number] 21:25:00 Test Item Value Reference Range Comments POC-GLUCOSE METER (BEAKER) 198 mg/dL 70-110 TESTED AT [address] (test uttq=1729) [facility] [address] POCT-GLUCOSE [id number] 16:29:00 Test Item Value Reference Range Comments POC-GLUCOSE METER (BEAKER) 296 mg/dL 70-110 TESTED AT [address] (test yisv=6528) [place] [address] ANTI-NUCLEAR ANTIBODY (MARY)2017-03-18 15:30:00 Test Item Value Reference Range Comments ANTI-NUCLEAR ANTIBODY (MARY) (BEAKER) (test Negative Negative exsc=928) HEXAGONAL [id number] 13:21:00 Test Item Value Reference Range Comments HEXAGONAL PHOSPHOLIPID (BEAKER) (test bjjz=6373) Negative POCT-GLUCOSE [id number] 12:15:00 Test Item Value Reference Range Comments POC-GLUCOSE METER (BEAKER) 140 mg/dL 70-110 TESTED AT [address] (test jimy=9633) [facility] [address] PROTEIN C [id number] 11:44:00 Test Item Value Reference Range Comments PROTEIN C ACTIVITY (BEAKER) (test rhny=313) 155.0 % 70.0-130.0 Effective 12/20/2013: Reference Range Change-Adult onlyNew: 70.0-130.0 Previous : 70.0-140.0See Protein C Antigen.ANTITHROMBIN [id number] 11:43:00 Test Item Value Reference Range Comments ANTITHROMBIN III ACTIVITY (BEAKER) (test vfpu=447) 87.0 % 80.0-120.0 Effective 12/20/2013: Reference Range Change-Adult onlyNew: 80.0-120.0 Previous : 90.0-128.0POCT-GLUCOSE [id number] 08:17:00 Test Item Value Reference Range Comments POC-GLUCOSE METER (BEAKER) 107 mg/dL 70-110 TESTED AT [facility] [address] (test jnuj=9803) [facility] [address] BASIC METABOLIC [id number] 06:32:00 Test Item Value Reference Range Comments SODIUM (BEAKER) (test 136 meq/L 136-145 tbhy=706) POTASSIUM (BEAKER) (test 3.6 meq/L 3.5-5.1 pyxb=942) CHLORIDE (BEAKER) (test 104 meq/L 98-107 umwv=237) CO2 (BEAKER) (test 23 meq/L 22-29 ylhy=557) BLOOD UREA NITROGEN 11 mg/dL 7-21 (BEAKER) (test xwdj=757) CREATININE (BEAKER) (test 1.68 mg/dL 0.57-1.25 kdnv=296) GLUCOSE RANDOM (BEAKER) 99 mg/dL 70-105 (test hsxe=009) CALCIUM (BEAKER) (test 8.4 mg/dL 8.4-10.2 xzyd=757) EGFR (BEAKER) (test 33 mL/min/1.73 sq m ESTIMATED GFR IS NOT kehj=8405) ACCURATE CREATININE CLEARANCE IN PREDICTING GLOMERULAR FILTRATION RATE. ESTIMATED GFR IS NOT APPLICABLE FOR DIALYSIS PATIENTS. CBC W/PLT COUNT & AUTO [id number] 05:56:00 Test Item Value Reference Range Comments WHITE BLOOD CELL COUNT (BEAKER) (test boaf=448) 11.7 K/ L 3.5-10.5 RED BLOOD CELL COUNT (BEAKER) (test ijwj=359) 3.95 M/ L 3.93-5.22 HEMOGLOBIN (BEAKER) (test lizo=938) 12.1 GM/DL 11.2-15.7 HEMATOCRIT (BEAKER) (test xxdq=268) 36.3 % 34.1-44.9 MEAN CORPUSCULAR VOLUME (BEAKER) (test ibui=850) 91.9 fL 79.4-94.8 MEAN CORPUSCULAR HEMOGLOBIN (BEAKER) (test 30.6 pg 25.6-32.2 yzkr=919) MEAN CORPUSCULAR HEMOGLOBIN CONC (BEAKER) (test 33.3 GM/DL 32.2-35.5 ymud=853) RED CELL DISTRIBUTION WIDTH (BEAKER) (test 12.7 % 11.7-14.4 mpwl=370) PLATELET COUNT (BEAKER) (test sdcr=923) 349 K/CU MM 150-450 MEAN PLATELET VOLUME (BEAKER) (test eqoh=079) 10.8 fL 9.4-12.3 NUCLEATED RED BLOOD CELLS (BEAKER) (test 0 /100 WBC 0-0 tphp=380) NEUTROPHILS RELATIVE PERCENT (BEAKER) (test 59 % jlrx=417) LYMPHOCYTES RELATIVE PERCENT (BEAKER) (test 31 % nfwk=514) MONOCYTES RELATIVE PERCENT (BEAKER) (test 8 % ojxk=743) EOSINOPHILS RELATIVE PERCENT (BEAKER) (test 2 % otzc=393) BASOPHILS RELATIVE PERCENT (BEAKER) (test 1 % eecx=365) NEUTROPHILS ABSOLUTE COUNT (BEAKER) (test 6.87 K/ L 1.56-6.13 ctem=764) LYMPHOCYTES ABSOLUTE COUNT (BEAKER) (test 3.57 K/ L 1.18-3.74 crkr=542) MONOCYTES ABSOLUTE COUNT (BEAKER) (test 0.90 K/ L 0.24-0.36 wpvf=777) EOSINOPHILS ABSOLUTE COUNT (BEAKER) (test 0.24 K/ L 0.04-0.36 kpre=847) BASOPHILS ABSOLUTE COUNT (BEAKER) (test 0.06 K/ L 0.01-0.08 noek=240) IMMATURE GRANULOCYTES-RELATIVE PERCENT (BEAKER) 0 % 0-1 (test ureh=3811) POCT-GLUCOSE [id number] 04:32:00 Test Item Value Reference Range Comments POC-GLUCOSE METER (BEAKER) 107 mg/dL 70-110 TESTED AT [address] (test uiks=1664) [place] [address] POCT-GLUCOSE [id number] 22:21:00 Test Item Value Reference Range Comments POC-GLUCOSE METER (BEAKER) 118 mg/dL 70-110 TESTED AT [address] (test szqo=4799) [place] [address] POCT-GLUCOSE [id number] 21:22:00 Test Item Value Reference Range Comments POC-GLUCOSE METER (BEAKER) 52 mg/dL 70-110 Notified ARMOND REYNOSO/TESTED AT [facility] (test tpcc=3851) [address] [place] [address] MICROALBUMIN, RANDOM [id number] 17:57:00 Test Item Value Reference Range Comments MICROALBUMIN URINE (BEAKER) (test foeq=4422) > mg/dL Reference Range: No NormalsURINALYSIS W/ [id number] 17:36:00 Test Item Value Reference Range Comments COLOR (BEAKER) (test hxvw=212) Light Yellow CLARITY (BEAKER) (test poxc=645) Clear SPECIFIC GRAVITY UA (BEAKER) (test wget=038) 1.005 1.001-1.035 PH UA (BEAKER) (test avxa=932) 7.0 5.0-8.0 PROTEIN UA (BEAKER) (test kwbl=610) 300 mg/dL Negative GLUCOSE UA (BEAKER) (test pcep=040) 30 mg/dL Negative KETONES UA (BEAKER) (test bjod=768) Negative Negative BILIRUBIN UA (BEAKER) (test cubr=517) Negative Negative BLOOD UA (BEAKER) (test gnsm=096) Negative Negative NITRITE UA (BEAKER) (test bwws=882) Negative Negative LEUKOCYTE ESTERASE UA (BEAKER) (test edop=308) Negative Negative UROBILINOGEN UA (BEAKER) (test qvql=653) 0.2 mg/dL 0.2-1.0 RBC UA (BEAKER) (test yvwv=638) 1 /HPF WBC UA (BEAKER) (test qkov=190) < /HPF BACTERIA (BEAKER) (test trvb=545) Rare SQUAMOUS EPITHELIAL (BEAKER) (test tdxp=081) 1 /HPF SOURCE(BEAKER) (test hlfh=4010) Urine, Voided SCREEN, [id number] 17:36:00 Test Item Value Reference Range Comments TEST URINE (BEAKER) (test gdto=010) Negative CREATININE, RANDOM [id number] 17:35:00 Test Item Value Reference Range Comments CREATININE URINE (BEAKER) (test qezp=738) 33.9 mg/dL Reference Range: No NormalsSODIUM, RANDOM [id number] 17:35:00 Test Item Value Reference Range Comments SODIUM URINE (BEAKER) (test xhbh=330) 63 meq/L Reference Range: No NormalsPOCT-GLUCOSE [id number] 17:34:00 Test Item Value Reference Range Comments POC-GLUCOSE METER (BEAKER) 118 mg/dL 70-110 TESTED AT [address] (test ostq=8155) [facility] [address] POCT-GLUCOSE [id number] 13:28:00 Test Item Value Reference Range Comments POC-GLUCOSE METER (BEAKER) 71 mg/dL 70-110 TESTED AT [address] (test tymv=3206) [facility] [address] POCT-GLUCOSE [id number] 10:37:00 Test Item Value Reference Range Comments POC-GLUCOSE METER (BEAKER) 144 mg/dL 70-110 TESTED AT [address] (test scvu=5636) [facility] [address] POCT-GLUCOSE [id number] 07:18:00 Test Item Value Reference Range Comments POC-GLUCOSE METER (BEAKER) 60 mg/dL 70-110 TESTED AT [address] (test wefj=9364) [facility] [address] CBC W/PLT COUNT & AUTO [id number] 05:51:00 Test Item Value Reference Range Comments WHITE BLOOD CELL COUNT (BEAKER) (test gzxz=353) 11.4 K/ L 3.5-10.5 RED BLOOD CELL COUNT (BEAKER) (test odtw=387) 3.81 M/ L 3.93-5.22 HEMOGLOBIN (BEAKER) (test eryr=314) 11.6 GM/DL 11.2-15.7 HEMATOCRIT (BEAKER) (test mlkg=724) 34.5 % 34.1-44.9 MEAN CORPUSCULAR VOLUME (BEAKER) (test apdb=348) 90.6 fL 79.4-94.8 MEAN CORPUSCULAR HEMOGLOBIN (BEAKER) (test 30.4 pg 25.6-32.2 mxdm=008) MEAN CORPUSCULAR HEMOGLOBIN CONC (BEAKER) (test 33.6 GM/DL 32.2-35.5 rhff=572) RED CELL DISTRIBUTION WIDTH (BEAKER) (test 12.6 % 11.7-14.4 zqym=775) PLATELET COUNT (BEAKER) (test uxzr=233) 354 K/CU MM 150-450 MEAN PLATELET VOLUME (BEAKER) (test fbbq=874) 10.4 fL 9.4-12.3 NUCLEATED RED BLOOD CELLS (BEAKER) (test 0 /100 WBC 0-0 omup=220) NEUTROPHILS RELATIVE PERCENT (BEAKER) (test 72 % hatb=724) LYMPHOCYTES RELATIVE PERCENT (BEAKER) (test 20 % brhr=992) MONOCYTES RELATIVE PERCENT (BEAKER) (test 6 % eaci=443) EOSINOPHILS RELATIVE PERCENT (BEAKER) (test 1 % wlvb=055) BASOPHILS RELATIVE PERCENT (BEAKER) (test 0 % znjg=416) NEUTROPHILS ABSOLUTE COUNT (BEAKER) (test 8.21 K/ L 1.56-6.13 oatj=239) LYMPHOCYTES ABSOLUTE COUNT (BEAKER) (test 2.31 K/ L 1.18-3.74 qzlk=994) MONOCYTES ABSOLUTE COUNT (BEAKER) (test 0.65 K/ L 0.24-0.36 xlzn=796) EOSINOPHILS ABSOLUTE COUNT (BEAKER) (test 0.11 K/ L 0.04-0.36 qbzs=220) BASOPHILS ABSOLUTE COUNT (BEAKER) (test 0.05 K/ L 0.01-0.08 onnx=195) IMMATURE GRANULOCYTES-RELATIVE PERCENT (BEAKER) 0 % 0-1 (test iouk=0228) BASIC METABOLIC [id number] 05:51:00 Test Item Value Reference Range Comments SODIUM (BEAKER) (test 138 meq/L 136-145 iwep=180) POTASSIUM (BEAKER) (test 3.8 meq/L 3.5-5.1 ulgc=636) CHLORIDE (BEAKER) (test 105 meq/L 98-107 ayeq=125) CO2 (BEAKER) (test 26 meq/L 22-29 jyxq=911) BLOOD UREA NITROGEN 13 mg/dL 7-21 (BEAKER) (test bone=776) CREATININE (BEAKER) (test 1.66 mg/dL 0.57-1.25 qjnv=787) GLUCOSE RANDOM (BEAKER) 167 mg/dL 70-105 (test agke=756) CALCIUM (BEAKER) (test 8.9 mg/dL 8.4-10.2 wzkk=396) EGFR (BEAKER) (test 34 mL/min/1.73 sq m ESTIMATED GFR IS NOT wrlb=9439) ACCURATE CREATININE CLEARANCE IN PREDICTING GLOMERULAR FILTRATION RATE. ESTIMATED GFR IS NOT APPLICABLE FOR DIALYSIS PATIENTS. POCT-GLUCOSE [id number] 21:41:00 Test Item Value Reference Range Comments POC-GLUCOSE METER (BEAKER) 287 mg/dL 70-110 TESTED AT [facility] [address] (test vwpc=7008) [facility] [address] BASIC METABOLIC [id number] 12:35:00 Test Item Value Reference Range Comments SODIUM (BEAKER) (test 134 meq/L 136-145 fgwo=834) POTASSIUM (BEAKER) (test 4.6 meq/L 3.5-5.1 zhmk=094) CHLORIDE (BEAKER) (test 105 meq/L 98-107 rxkx=645) CO2 (BEAKER) (test 23 meq/L 22-29 rqly=797) BLOOD UREA NITROGEN 14 mg/dL 7-21 (BEAKER) (test uzud=894) CREATININE (BEAKER) 1.59 mg/dL 0.57-1.25 (test thxx=795) GLUCOSE RANDOM (BEAKER) 266 mg/dL 70-105 (test lpgs=169) CALCIUM (BEAKER) (test 8.2 mg/dL 8.4-10.2 uhjb=213) EGFR (BEAKER) (test 36 mL/min/1.73 sq m INSUFFICIENT CLINICAL DATA whhn=4906) TO CALCULATE ESTIMATED GFR.This is an appended report. These results have been appended to a previously final verified report. CBC W/PLT COUNT & AUTO [id number] 04:54:00 Test Item Value Reference Range Comments WHITE BLOOD CELL COUNT (BEAKER) (test djyy=198) 10.6 K/ L 3.5-10.5 RED BLOOD CELL COUNT (BEAKER) (test otgi=502) 3.55 M/ L 3.93-5.22 HEMOGLOBIN (BEAKER) (test byps=939) 10.8 GM/DL 11.2-15.7 HEMATOCRIT (BEAKER) (test rufi=436) 32.6 % 34.1-44.9 MEAN CORPUSCULAR VOLUME (BEAKER) (test xyhh=311) 91.8 fL 79.4-94.8 MEAN CORPUSCULAR HEMOGLOBIN (BEAKER) (test 30.4 pg 25.6-32.2 jlwd=351) MEAN CORPUSCULAR HEMOGLOBIN CONC (BEAKER) (test 33.1 GM/DL 32.2-35.5 uckt=108) RED CELL DISTRIBUTION WIDTH (BEAKER) (test 12.3 % 11.7-14.4 yzyt=564) PLATELET COUNT (BEAKER) (test noof=288) 311 K/CU MM 150-450 MEAN PLATELET VOLUME (BEAKER) (test lozl=044) 10.2 fL 9.4-12.3 NUCLEATED RED BLOOD CELLS (BEAKER) (test 0 /100 WBC 0-0 aaiq=716) NEUTROPHILS RELATIVE PERCENT (BEAKER) (test 71 % okmt=905) LYMPHOCYTES RELATIVE PERCENT (BEAKER) (test 20 % irwd=247) MONOCYTES RELATIVE PERCENT (BEAKER) (test 6 % sgeh=601) EOSINOPHILS RELATIVE PERCENT (BEAKER) (test 3 % gdne=050) BASOPHILS RELATIVE PERCENT (BEAKER) (test 1 % xtrz=202) NEUTROPHILS ABSOLUTE COUNT (BEAKER) (test 7.51 K/ L 1.56-6.13 xuiz=974) LYMPHOCYTES ABSOLUTE COUNT (BEAKER) (test 2.11 K/ L 1.18-3.74 vwfd=192) MONOCYTES ABSOLUTE COUNT (BEAKER) (test 0.60 K/ L 0.24-0.36 efwu=992) EOSINOPHILS ABSOLUTE COUNT (BEAKER) (test 0.27 K/ L 0.04-0.36 chpm=977) BASOPHILS ABSOLUTE COUNT (BEAKER) (test 0.07 K/ L 0.01-0.08 dnuc=235) IMMATURE GRANULOCYTES-RELATIVE PERCENT (BEAKER) 1 % 0-1 (test kwgk=9110) [id number] 20:17:00 Test Item Value Reference Range Comments RPR SCREEN (BEAKER) (test ocnv=336) Nonreactive Nonreactive POCT-GLUCOSE [id number] 18:09:00 Test Item Value Reference Range Comments POC-GLUCOSE METER (BEAKER) 215 mg/dL 70-110 TESTED AT [facility] [address] [facility] (test nmon=8511) [facility] [address] CBC W/PLT COUNT & AUTO [id number] 11:54:00 Test Item Value Reference Range Comments WHITE BLOOD CELL COUNT (BEAKER) (test duic=237) 9.3 K/ L 3.5-10.5 RED BLOOD CELL COUNT (BEAKER) (test ypri=422) 3.45 M/ L 3.93-5.22 HEMOGLOBIN (BEAKER) (test dpcw=346) 10.7 GM/DL 11.2-15.7 HEMATOCRIT (BEAKER) (test jndp=697) 32.0 % 34.1-44.9 MEAN CORPUSCULAR VOLUME (BEAKER) (test stfl=792) 92.8 fL 79.4-94.8 MEAN CORPUSCULAR HEMOGLOBIN (BEAKER) (test 31.0 pg 25.6-32.2 lrsb=794) MEAN CORPUSCULAR HEMOGLOBIN CONC (BEAKER) (test 33.4 GM/DL 32.2-35.5 kwyc=406) RED CELL DISTRIBUTION WIDTH (BEAKER) (test 12.7 % 11.7-14.4 wcrr=196) PLATELET COUNT (BEAKER) (test wszt=052) 302 K/CU MM 150-450 MEAN PLATELET VOLUME (BEAKER) (test gwib=777) 10.0 fL 9.4-12.3 NUCLEATED RED BLOOD CELLS (BEAKER) (test 0 /100 WBC 0-0 rcpp=779) NEUTROPHILS RELATIVE PERCENT (BEAKER) (test 60 % pnbl=423) LYMPHOCYTES RELATIVE PERCENT (BEAKER) (test 29 % hloe=978) MONOCYTES RELATIVE PERCENT (BEAKER) (test 8 % xlxj=013) EOSINOPHILS RELATIVE PERCENT (BEAKER) (test 3 % ipvk=583) BASOPHILS RELATIVE PERCENT (BEAKER) (test 1 % rklp=918) NEUTROPHILS ABSOLUTE COUNT (BEAKER) (test 5.55 K/ L 1.56-6.13 tdzy=113) LYMPHOCYTES ABSOLUTE COUNT (BEAKER) (test 2.65 K/ L 1.18-3.74 ezmp=736) MONOCYTES ABSOLUTE COUNT (BEAKER) (test 0.70 K/ L 0.24-0.36 ibug=014) EOSINOPHILS ABSOLUTE COUNT (BEAKER) (test 0.31 K/ L 0.04-0.36 uebl=236) BASOPHILS ABSOLUTE COUNT (BEAKER) (test 0.05 K/ L 0.01-0.08 tqxy=448) IMMATURE GRANULOCYTES-RELATIVE PERCENT (BEAKER) 0 % 0-1 (test pmkz=4358) (MANUAL DIFFERENTIAL)2017-03-15 11:54:00 Test Item Value Reference Range Comments TOTAL COUNTED (BEAKER) (test boci=9414) WBC MORPHOLOGY (BEAKER) (test gyqs=406) Normal PLT MORPHOLOGY (BEAKER) (test ozwe=343) Normal RBC MORPHOLOGY (BEAKER) (test pxsz=945) Normal SEDIMENTATION [id number] 10:27:00 Test Item Value Reference Range Comments SEDIMENTATION RATE, ERYTHROCYTE (BEAKER) (test 79 mm/HR 0-20 xcya=921) HEMOGLOBIN [id number] 09:33:00 Test Item Value Reference Range Comments HEMOGLOBIN A1C (BEAKER) (test nbne=162) 9.8 % 4.3-6.1 VITAMIN [id number] 09:14:00 Test Item Value Reference Range Comments VITAMIN B12 (BEAKER) (test pwog=571) 1790 pg/mL 213-816 TSH/FREE T4 IF [id number] 09:14:00 Test Item Value Reference Range Comments THYROID STIMULATING HORMONE (BEAKER) (test 1.08 uIU/mL 0.35-4.94 pxpk=711) BASIC METABOLIC [id number] 08:52:00 Test Item Value Reference Range Comments SODIUM (BEAKER) (test 137 meq/L 136-145 thnt=711) POTASSIUM (BEAKER) (test 4.7 meq/L 3.5-5.1 ostz=927) CHLORIDE (BEAKER) (test 107 meq/L 98-107 xvgy=211) CO2 (BEAKER) (test 25 meq/L 22-29 wmfx=706) BLOOD UREA NITROGEN 18 mg/dL 7-21 (BEAKER) (test bnes=525) CREATININE (BEAKER) (test 1.77 mg/dL 0.57-1.25 pdaf=193) GLUCOSE RANDOM (BEAKER) 290 mg/dL 70-105 (test dwtl=058) CALCIUM (BEAKER) (test 8.0 mg/dL 8.4-10.2 fbdd=163) EGFR (BEAKER) (test mL/min/1.73 sq m INSUFFICIENT CLINICAL DATA lmlg=3430) TO CALCULATE ESTIMATED GFR. FastingLIPID [id number] 08:51:00 Test Item Value Reference Range Comments TRIGLYCERIDES (BEAKER) (test wrvp=992) 90 mg/dL CHOLESTEROL (BEAKER) (test hotv=707) 143 mg/dL HDL CHOLESTEROL (BEAKER) (test tbsh=321) 44 mg/dL LDL CHOLESTEROL CALCULATED (BEAKER) (test 81 mg/dL iwch=980) Triglyceride Reference Range: Low Risk <150 Borderline 150- 199 High Risk 200-499 Very High Risk >=500Cholesterol Reference Range: Low Risk <200 Borderline 200-239 High Risk > 240HDL Cholesterol Reference Range: Low Risk >=60 High Risk <40LDL Cholesterol Reference Range: Optimal <100 Near Optimal 100-129 Borderline 130-159 High 160-189 Very High >=190 FastingHCG, QUANTITATIVE, [id number] 01:43:00 Test Item Value Reference Range Comments GONADOTROPIN, CHORIONIC (HCG) QUANT (BEAKER) (test < mIU/mL 0-10 aacu=645) Non- Females: <10 mIU/mL Females: Gestation Age Reference Range(mIU/mL) 0.2-1 Week 5-50 1-2 Weeks 50-500 2-3 Weeks 100-5,000 3-4Weeks 500-10,000 4 -5 Weeks 1,000-50,000 5-6 Weeks 10,000-100,000 6-8 Weeks 15,000-200,000 2-3 Months 10,000-100,000COMPREHENSIVE METABOLIC [id number] 21:57:00 Test Item Value Reference Range Comments TOTAL PROTEIN (BEAKER) 5.0 gm/dL 6.0-8.3 (test wuzu=332) ALBUMIN (BEAKER) (test 2.1 g/dL 3.5-5.0 njdz=4691) ALKALINE PHOSPHATASE 106 U/L 40-150 (BEAKER) (test ijzt=183) BILIRUBIN TOTAL (BEAKER) 0.2 mg/dL 0.2-1.2 (test hdax=547) SODIUM (BEAKER) (test 137 meq/L 136-145 kbvx=114) POTASSIUM (BEAKER) (test 4.7 meq/L 3.5-5.1 kwce=155) CHLORIDE (BEAKER) (test 106 meq/L 98-107 rxgx=380) CO2 (BEAKER) (test 25 meq/L 22-29 jurk=022) BLOOD UREA NITROGEN 21 mg/dL 7-21 (BEAKER) (test ejhs=475) CREATININE (BEAKER) (test 2.00 mg/dL 0.57-1.25 gixd=986) GLUCOSE RANDOM (BEAKER) 285 mg/dL 70-105 (test uupm=586) CALCIUM (BEAKER) (test 7.9 mg/dL 8.4-10.2 jbhh=608) AST (SGOT) ([employer]) (test 16 U/L 5-34 cixd=014) ALT (SGPT) (24 [employer]) (test 14 U/L 6-55 rgrf=958) EGFR ([employer]) (test mL/min/1.73 sq m INSUFFICIENT CLINICAL DATA wrst=6844) TO CALCULATE ESTIMATED GFR. Unit CollectPOCT-GLUCOSE [id number] 21:50:00 Test Item Value Reference Range Comments POC-GLUCOSE METER ([employer]) 278 mg/dL 70-110 TESTED AT [facility] [id number] [facility] (test zryk=3306) [facility] [id number]
[2019-09-12] MEDS ORDERED: ASPIRIN 81 MG CHEWABLE TABLET ONE (10:19)
[2019-09-12] MEDS ORDERED: ONDANSETRON 4 MG/2 ML VIAL ONE (10:20)
[2019-09-12] MEDS ORDERED: LORazepam 2 MG/ML VIAL ONE (10:20)
[2019-09-12] MEDS ORDERED: MORPHINE 4 MG/ML SYR ONE (10:20)
[2019-09-12] MEDS ORDERED: NA CHLORIDE 0.9% 1,000 ML ONE (10:20)
[2019-09-12 10:38] LABS: Absolute Lymphocytes (CBC) 1.9 K/uL (0.7-4.9); Basophils % 1.1 % (0-1.3); Hematocrit 37.1 % (36.0-45.0); Lymphocytes % 20.7 % (15.3-44.8); MPV 8.7 fL (7.6-11.3)
[2019-09-12 10:45] LABS: Protime INR 0.86
--- NOTE | 2019-09-12 11:12 | RAD REPORT ---
EXAM DESCRIPTION: RAD - Chest Single View - 09/12/2019 11:03 am CLINICAL HISTORY: CHEST PAIN Chest pain. COMPARISON: Chest Single View dated 07/15/2019; Chest Single View dated 04/11/2019; Chest Single View dated 03/16/2019; Chest Single View dated 03/13/2019 FINDINGS: Portable technique limits examination quality. The lungs are grossly clear. The heart is normal in size. Left-sided venous catheter has tip in the r ight atrium. IMPRESSION: No acute intrathoracic process suspected.
[2019-09-12 11:16] LABS: ALT/SGPT 11 U/L (12-78); AST/SGOT 10 U/L (15-37); Albumin 2.8 g/dL (3.4-5.0); Alkaline Phosphatase 132 U/L (45-117); BUN Blood Urea Nitrogen 44 mg/dL (7-18); Bicarbonate 26 mmol/L (21-32); Bilirubin Direct 0.2 mg/dL (0-0.2); Bilirubin Total 0.5 mg/dL (0.2-1.0); Glucose Level 364 mg/dL (74-106); Lipase 228 U/L (73-393); Magnesium 2.1 mg/dL (1.8-2.4); NT PRO-BNP 2067 pg/mL (<125); Potassium 3.8 mmol/L (3.5-5.1); Protein, Total 6.7 g/dL (6.4-8.2); Sodium Level 133 mmol/L (136-145); Troponin (Emerg Dept Use Only) < 0.02 ng/mL (0.0-0.045)
[2019-09-12] MEDS ORDERED: INSULIN -REGULAR HUMAN 50 UNIT/0.5 ML ML ONE (11:41)
--- NOTE | 2019-09-12 13:05 | ER ---
Nurse's Notes [facility] Name: Archana Woo Age: 43 yrs Sex: Female : 1975 Arrival Date: 09/12/2019 Time: 09:52 Bed 5 Private MD: Diagnosis: Other chest pain;Anxiety disorder, unspecified;Type 2 diabetes mellitus;End stage renal disease Presentation: 09/12 09:53 Presenting complaint: EMS states: BILATERAL BREAST PAIN SINCE AM. Transition of care: bp patient was not received from another setting of care. Onset of symptoms was September 12, 2019. Risk Assessment: Do you want to hurt yourself or someone else? Patient reports no desire to harm self or others. Initial Sepsis Screen: Does the patient meet any 2 criteria? No. Patient's initial sepsis screen is negative. Does the patient have a suspected source of infection? No. Patient's initial sepsis screen is negative. Care prior to arrival: Glucose check: 423. 09:53 Method Of Arrival: EMS: [facility] bp 09:53 Acuity: TARUN 3 bp Triage Assessment: 09:55 General: Appears in no apparent distress. comfortable, Behavior is cooperative, bp appropriate for age, anxious. Pain: Complains of pain in right breast and left breast. EENT: No deficits noted. Neuro: No deficits noted. Cardiovascular: No deficits noted. Respiratory: No deficits noted. GI: No signs and/or symptoms were reported involving the gastrointestinal system. : No signs and/or symptoms were reported regarding the genitourinary system. Derm: No deficits noted. Musculoskeletal: No deficits noted. 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 - Irregular menses bp Historical: - Allergies: :55 No Known Allergies; bp - Home Meds: :55 calcitriol 0.25 mcg Oral cap 1 cap [Active]; docusate sodium 100 mg Oral cap 1 cap once bp daily [Active]; furosemide 80 mg Oral tab 1 tab 2 times per day [Active]; hydralazine 25 mg Oral tab 1 tab 4 times per day [Active]; Hydrocodone-Acetaminophen Oral [Active]; Lantus 100 unit/mL Sub-Q soln [Active]; - PMHx: 09:55 BLIND; CVA; Depression; Diabetes - NIDDM; GERD; Hyperlipidemia; Hypertension; left arm bp paralysis; neuropathy; THYROID CANCER; TIA; - Immunization history:: Adult Immunizations up to date. - Coronavirus screen:: The patient has NOT traveled to [place], [place], or [place] in the past 14 days. The patient has NOT had contact with known/suspected case of Coronavirus?. - Social history:: Smoking status: Patient denies any tobacco usage or history of. - Family history:: not pertinent. - Ebola Screening: : No symptoms or risks identified at this time. Screenin:58 Abuse screen: Denies threats or abuse. Denies injuries from another. Nutritional bp screening: No deficits noted. Tuberculosis screening: No symptoms or risk factors identified. Fall Risk Assessment: 09:58 General: SEE TRIAGE NOTE. bp 10:20 Reassessment: PT STATES "I DIDN'T TAKE MY ANXIETY MEDS. I FEEL LIKE I WANT TO SCREAM". bp MD INFORMED. MED ORDERED AND GIVEN. 10:25 Reassessment: Patient is alert, oriented x 3, equal unlabored respirations, skin aa5 warm/dry/pink. Pt appears more calm at this time, states feeling better. . 12:30 Reassessment: PT RESTING QUIETLY, FAMILY AT B/S. ALL CURRENT ORDERS COMPLETED, INITIAL bp RESULTS UNREMARKABLE. 13:43 Reassessment: D/C ON HOLD FOR MD SHAW. bp 14:01 Reassessment: PT D/C WITH FAMILY TO SCHEDULED DIALYSIS VIA W/C, DX WITH ANXIETY. bp Vital Signs: 09:55 BP 163 / 47; Pulse 73; Resp 17; Temp 97.8; Pulse Ox 97% ; Weight 59.87 kg; bp 11:02 BP 174 / 66; Pulse 67; Resp 15; Pulse Ox 100% ; bp 13:43 BP 128 / 61; Pulse 66; Resp 15; Pulse Ox 100% on R/A; mh5 ED Course: 09:52 Patient arrived in ED. bp 09:53 Zelalem Brenner MD is Attending Physician. davion 09:54 Triage completed. bp 09:55 Arm band placed on. bp 09:59 Patient has correct armband on for positive identification. Bed in low position. Call bp light in reach. Side rails up X2. 10:00 Jesus Sanford, ARMOND is Primary Nurse. bp 10:15 Inserted saline lock: 22 gauge in right forearm, using aseptic technique. Blood bp collected. 11:03 XRAY Chest (1 view) In Process Unspecified. EDMS 13:03 Nael Beckman MD is Referral Physician. davion 13:45 No provider procedures requiring assistance completed. IV discontinued, intact, bp bleeding controlled, No redness/swelling at site. Pressure dressing applied. Administered Medications: 10:20 Drug: NS 0.9% 1000 ml Route: IV; Rate: 75 ml/hr; Site: right forearm; aa5 14:03 Follow up: IV Status: Completed infusion; IV Intake: 150ml bp 10:20 Drug: Aspirin 81 mg Route: PO; aa5 11:01 Follow up: Response: No adverse reaction bp 10:20 Drug: Ativan 1 mg Route: IVP; Site: right forearm; aa5 11:01 Follow up: Response: Anxiety decreased bp 10:21 Drug: Zofran 4 mg Route: IVP; Site: right forearm; aa5 11:00 Follow up: Response: Nausea is decreased bp 10:23 Drug: morphine 4 mg Route: IVP; Site: right forearm; aa5 11:00 Follow up: Response: Pain is decreased bp 11:40 Drug: Insulin Regular Human 10 units {Co-Signature: aa5 (Rupali Ferraro RN).} Route: bp IVP; Site: right forearm; Intake: 14:03 IV: 150ml; Total: 150ml. bp Outcome: 13:03 Discharge ordered by . davion 13:45 Discharged to home via wheelchair, with family. bp 13:45 Condition: stable 13:45 Discharge instructions given to patient, family, Instructed on discharge instructions, follow up and referral plans. Demonstrated understanding of instructions, follow-up care. 14:03 Patient left the ED. iw Signatures: Dispatcher [employer] Zelalem Elizalde MD MD cha Williams, Irene, RN RN iw Calderon, Audri, RN RN mitul5 Ann Castillo [facility] Jesus Sanford RN RN bp Rupali goldsmith
--- NOTE | 2019-09-12 13:06 | EDPHYS ---
Physician Documentation [facility] Name: Archana Woo Age: 43 yrs Sex: Female : 1975 Arrival Date: 09/12/2019 Time: 09:52 Bed 5 Private MD: ANAT Physician Zelalem Brenner HPI: 09/12 10:00 This 43 yrs old Female presents to ER via EMS with complaints of Breast davion Problem. 10:00 The patient or guardian reports chest pain that is located primarily in the substernal davion area. Onset: this morning. The pain does not radiate. Associated signs and symptoms: The patient has no apparent associated signs or symptoms. The chest pain is described as a heaviness. Duration: The patient or guardian reports a single episode, that is still ongoing. Modifying factors: The symptoms are alleviated by nothing. the symptoms are aggravated by nothing. Severity of pain: At its worst the pain was moderate severe in the emergency department the pain has resolved. The patient has not experienced similar symptoms in the past. 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 - Irregular menses bp Historical: - Allergies: :55 No Known Allergies; bp - Home Meds: :55 calcitriol 0.25 mcg Oral cap 1 cap [Active]; docusate sodium 100 mg Oral cap 1 cap once bp daily [Active]; furosemide 80 mg Oral tab 1 tab 2 times per day [Active]; hydralazine 25 mg Oral tab 1 tab 4 times per day [Active]; Hydrocodone-Acetaminophen Oral [Active]; Lantus 100 unit/mL Sub-Q soln [Active]; - PMHx: 09:55 BLIND; CVA; Depression; Diabetes - NIDDM; GERD; Hyperlipidemia; Hypertension; left arm bp paralysis; neuropathy; THYROID CANCER; TIA; - Immunization history:: Adult Immunizations up to date. - Coronavirus screen:: The patient has NOT traveled to [place], [place], or [place] in the past 14 days. The patient has NOT had contact with known/suspected case of Coronavirus?. - Social history:: Smoking status: Patient denies any tobacco usage or history of. - Family history:: not pertinent. - Ebola Screening: : No symptoms or risks identified at this time. ROS: 10:00 Constitutional: Negative for fever, chills, and weight loss, Eyes: Negative for injury, davion pain, redness, and discharge, ENT: Negative for injury, pain, and discharge, Neck: Negative for injury, pain, and swelling, Respiratory: Negative for shortness of breath, cough, wheezing, and pleuritic chest pain, Abdomen/GI: Negative for abdominal pain, nausea, vomiting, diarrhea, and constipation, Back: Negative for injury and pain, : Negative for injury, bleeding, discharge, and swelling, MS/Extremity: Negative for injury and deformity, Skin: Negative for injury, rash, and discoloration, Neuro: Negative for headache, weakness, numbness, tingling, and seizure, Psych: Negative for depression, anxiety, suicide ideation, homicidal ideation, and hallucinations, Allergy/Immunology: Negative for hives, rash, and allergies, Endocrine: Negative for neck swelling, polydipsia, polyuria, polyphagia, and marked weight changes, Hematologic/Lymphatic: Negative for swollen nodes, abnormal bleeding, and unusual bruising. 10:00 Cardiovascular: Positive for chest pain, of the chest. 10:00 MS/extremity: Negative for acute changes. Exam: 10:02 Constitutional: This is a well developed, well nourished patient who is awake, alert, davion and in no acute distress. Head/Face: Normocephalic, atraumatic. Eyes: Pupils equal round and reactive to light, extra-ocular motions intact. Lids and lashes normal. Conjunctiva and sclera are non-icteric and not injected. Cornea within normal limits. Periorbital areas with no swelling, redness, or edema. ENT: Nares patent. No nasal discharge, no septal abnormalities noted. Tympanic membranes are normal and external auditory canals are clear. Oropharynx with no redness, swelling, or masses, exudates, or evidence of obstruction, uvula midline. Mucous membranes moist. Neck: Trachea midline, no thyromegaly or masses palpated, and no cervical lymphadenopathy. Supple, full range of motion without nuchal rigidity, or vertebral point tenderness. No Meningismus. Chest/axilla: Normal chest wall appearance and motion. Nontender with no deformity. No lesions are appreciated. Cardiovascular: Regular rate and rhythm with a normal S1 and S2. No gallops, murmurs, or rubs. Normal PMI, no JVD. No pulse deficits. Respiratory: Lungs have equal breath sounds bilaterally, clear to auscultation and percussion. No rales, rhonchi or wheezes noted. No increased work of breathing, no retractions or nasal flaring. Abdomen/GI: Soft, non-tender, with normal bowel sounds. No distension or tympany. No guarding or rebound. No evidence of tenderness throughout. Back: No spinal tenderness. No costovertebral tenderness. Full range of motion. Skin: Warm, dry with normal turgor. Normal color with no rashes, no lesions, and no evidence of cellulitis. MS/ Extremity: Pulses equal, no cyanosis. Neurovascular intact. Full, normal range of motion. Neuro: Awake and alert, GCS 15, oriented to person, place, time, and situation. Cranial nerves II-XII grossly intact. Motor strength 5/5 in all extremities. Sensory grossly intact. Cerebellar exam normal. Normal gait. Psych: Awake, alert, with orientation to person, place and time. Behavior, mood, and affect are within normal limits. 11:44 Musculoskeletal/extremity: DVT Exam: No signs of deep vein thrombosis. no pain, no davion swelling, no tenderness, negative Homans' sign noted on exam, no appreciated bluish discoloration, no erythema, no increased warmth. Vital Signs: 09:55 BP 163 / 47; Pulse 73; Resp 17; Temp 97.8; Pulse Ox 97% ; Weight 59.87 kg; bp 11:02 BP 174 / 66; Pulse 67; Resp 15; Pulse Ox 100% ; bp 13:43 BP 128 / 61; Pulse 66; Resp 15; Pulse Ox 100% on R/A; 5 MDM: 09:53 Patient medically screened. [facility] 10:02 Data reviewed: vital signs, nurses notes, lab test result(s), EKG, radiologic studies, [facility] plain films. 09/12 10:00 Order name: Basic Metabolic Panel; Complete Time: : [facility] 09/12 10:00 Order name: CBC with Diff; Complete Time: 10: [facility] 09/12 10:00 Order name: LFT's; Complete Time: : [facility] 09/12 10:00 Order name: Magnesium; Complete Time: : [facility] 09/12 10:00 Order name: NT PRO-BNP; Complete Time: : [facility] 09/12 10:00 Order name: PT-INR; Complete Time: : [facility] 09/12 10:00 Order name: Troponin (emerg Dept Use Only); Complete Time: : [facility] 09/12 10:00 Order name: XRAY Chest (1 view); Complete Time: : [facility] 09/12 10:00 Order name: Lipase; Complete Time: : [facility] 09/12 11:30 Order name: Troponin (emerg Dept Use Only): at 1200; Complete Time: 13:15 [facility] 09/12 12:37 Order name: Glucose, Ancillary Testing; Complete Time: 12:43 EDMS 09/12 10:00 Order name: EKG; Complete Time: : [facility] 09/12 10:00 Order name: Cardiac monitoring; Complete Time: : [facility] 09/12 10:00 Order name: EKG - Nurse/Tech; Complete Time: : [facility] 09/12 10:00 Order name: IV Saline Lock; Complete Time: 11: [facility] 09/12 10:00 Order name: Labs collected and sent; Complete Time: : [facility] 09/12 10:00 Order name: O2 Per Protocol; Complete Time: : [facility] 09/12 10:00 Order name: O2 Sat Monitoring; Complete Time: 10:01 [facility] Administered Medications: 10:20 Drug: NS 0.9% 1000 ml Route: IV; Rate: 75 ml/hr; Site: right forearm; aa5 14:03 Follow up: IV Status: Completed infusion; IV Intake: 150ml bp 10:20 Drug: Aspirin 81 mg Route: PO; aa5 11:01 Follow up: Response: No adverse reaction bp 10:20 Drug: Ativan 1 mg Route: IVP; Site: right forearm; aa5 11:01 Follow up: Response: Anxiety decreased bp 10:21 Drug: Zofran 4 mg Route: IVP; Site: right forearm; aa5 11:00 Follow up: Response: Nausea is decreased bp 10:23 Drug: morphine 4 mg Route: IVP; Site: right forearm; aa5 11:00 Follow up: Response: Pain is decreased bp 11:40 Drug: Insulin Regular Human 10 units {Co-Signature: aa5 (Rupali Ferraro RN).} Route: bp IVP; Site: right forearm; Disposition: 09/12/19 13:03 Discharged to Home. Impression: Other chest pain, Anxiety disorder, unspecified, Type 2 diabetes mellitus, End stage renal disease. - Condition is Stable. - Discharge Instructions: Nonspecific Chest Pain, Type 2 Diabetes Mellitus, Diagnosis, Adult, Dialysis, Nonspecific Chest Pain, [id number], End-Stage Kidney Disease, Aspirin and Your Heart, Type 2 Diabetes Mellitus, Diagnosis, Adult, [id number]. - Medication Reconciliation Form, Thank You Letter, Antibiotic Education, Prescription Opioid Use form. - Follow up: Private Physician; When: Today; Reason: Recheck today's complaints, Continuance of care, Re-evaluation by your physician. Follow up: Nael Beckman; When: 2 - 3 days; Reason: Recheck today's complaints, Re-evaluation by your physician. - Problem is new. - Symptoms have improved. Signatures: Dispatcher [employer] EDMS Zelalem Brenner MD MD cha Williams, Irene, RN RN iw Calderon, Audri, RN RN aa5 Jesus Sanford RN RN bp Rupali Ferraro RN aa5 Corrections: (The following items were deleted from the chart) 14:03 13:03 09/12/2019 13:03 Discharged to Home. Impression: Other chest pain; Anxiety iw disorder, unspecified; Type 2 diabetes mellitus; End stage renal disease. Condition is Stable. Discharge Instructions: Nonspecific Chest Pain, Type 2 Diabetes Mellitus, Diagnosis, Adult, Dialysis, Nonspecific Chest Pain, [id number], End-Stage Kidney Disease, Aspirin and Your Heart, Type 2 Diabetes Mellitus, Diagnosis, Adult, [id number]. Forms are Medication Reconciliation Form, Thank You Letter, Antibiotic Education, Prescription Opioid Use. Follow up: Private Physician; When: Today; Reason: Recheck today's complaints, Continuance of care, Re-evaluation by your physician. Follow up: Nael Beckman; When: 2 - 3 days; Reason: Recheck today's complaints, Re-evaluation by your physician. Problem is new. Symptoms have improved. davion
[2019-09-12 14:26] VITALS: TEMP 97.8
[2019-09-12 14:27] VITALS: O2SAT 100
[2019-09-12 14:29] VITALS: BP 128/61
--- NOTE | 2019-09-12 15:20 | EKG ---
Test Date: 2019-09-12 Test Time: 10:24:31 Environmental Director: DALTON MEASUREMENT RESULTS: Intervals: Rate: 76 NJ: 146 QRSD: 74 QT: 410 QTc: 461 Duarte: P: 69 NJ: 146 QRS: 45 T: 94 INTERPRETIVE STATEMENTS: Normal sinus rhythm Possible Left atrial enlargement Low voltage QRS Prolonged QT Abnormal ECG Compared to ECG 07/15/2019 16:22:24 Low QRS voltage now present Prolonged QT interval now present Electronically Signed On 09-12-19 15:19:08 PROJECT MANAGEMENT INTERN by Souleymane Julio
== END 2019-09-12 14:03 | disposition home or self-care (01) ==
LOC: ER 09:50
DX: F41.9 Anxiety disorder, unspecified (principal); E11.22 Type 2 diabetes mellitus with diabetic chronic kidney disease; I12.0 Hypertensive chronic kidney disease with stage 5 chronic kidney disease or end stage renal disease; N18.6 End stage renal disease; E78.5 Hyperlipidemia, unspecified; Z79.4 Long term (current) use of insulin; Z85.850 Personal history of malignant neoplasm of thyroid
CPT/HCPCS: 96361; 93005; 85025; 80048; 36415; 83735; 85610; 82947; 80076; 84484 ×2; 83690; 83880; 71045; 96375; 96374; 99284; J7030; J2405

== ENCOUNTER 2019-12-22 22:05 | Inpatient (IN) | payer OTHER ==
--- OUTSIDE RECORDS SUMMARY | 2019-12-22 22:08 | XMS REPORT | Clinical Summary ---
:1975 Author Organization [facility] Address [address] [place] [address] Care Team Providers Name Role Phone Unavailable Primary Care Provider Unavailable Allergies No Known Allergies Medications Medication Sig Dispensed Refills Start Date End Date Status PARoxetine (PAXIL) 40 Take 40 mg by mouth 0 Active MG tablet every morning. HYDROcodone-acetamino Take 1 tablet by 0 Active phen (NORCO 7.5-325) mouth every 6 (six) 7.5-325 mg per tablet hours as needed for Pain. ALPRAZolam (XANAX) 1 Take 1 mg by mouth 0 Active MG tablet every night as needed for Anxiety. busPIRone (BUSPAR) 10 Take 10 mg by mouth 0 Active MG tablet 3 (three) times daily. esomeprazole (NEXIUM) Take 40 mg by mouth 0 Active 40 MG capsule daily. fenofibrate (TRICOR) Take 48 mg by mouth 0 Active 48 MG tablet daily. levothyroxine Take 150 mcg by 0 Active (SYNTHROID, mouth Every morning LEVOTHROID) 150 MCG on an empty tablet stomach. magnesium oxide Take 400 mg by 0 Active (MAG-OX) 400 mg mouth daily. tablet prednisoLONE acetate 1 drop as needed. 0 Active (PRED FORTE) 1 % ophthalmic suspension multivitamin Take 1 tablet by 0 Active (MULTIVITAMIN) per mouth daily. tablet metoclopramide HCl Take 10 mg by mouth 0 Active (REGLAN) 10 MG tablet 4 (four) times daily as needed for Nausea. erythromycin base Take 250 mg by 0 Active (E-MYCIN) 250 MG mouth every 6 (six) tablet hours as needed. insulin glargine Inject 50 Units 10 mL 0 03/20/2017 Active (LANTUS) 100 unit/mL subcutaneously injection every morning Use as directed . cyclobenzaprine Take 2.5 mg by 0 06/01/2019 Active (FLEXERIL) 5 MG mouth 3 (three) tablet times daily. DULoxetine (CYMBALTA) Take 30 mg by mouth 0 06/01/20 19 Active 30 MG capsule daily. famotidine (PEPCID) Take 20 mg by mouth 0 06/01/2019 Active 20 MG tablet daily. furosemide (LASIX) 40 Take 80 mg by mouth 0 06/01/20 19 Active MG tablet 2 (two) times daily. gabapentin Take 100 mg by 0 06/01/2019 Act selvin (NEURONTIN) 100 MG mouth every Thursday, capsule Thursday, Thursday. lisinopril Take 20 mg by mouth 0 06/01/2019 Active (PRINIVIL,ZESTRIL) 20 2 (two) times MG tablet daily. traMADol (ULTRAM) 50 Take 50 mg by mouth 0 9 Active mg tablet daily as needed FOR PAIN. amLODIPine (NORVASC) Take 1 tablet (5 mg 30 tablet 0 9 5 MG tablet total) by mouth 0 daily for 30 days. aspirin 81 MG Take 1 tablet (81 30 tablet 0 07/19/2019 02 chewable tablet mg total) by mouth 0 daily for 30 days. atorvastatin Take 1 tablet (40 30 tablet 0 07/18/2019 08/17/19 2 (LIPITOR) 40 MG mg total) by mouth 0 tablet nightly for 30 days. Active Problems Problem Noted Date Left sided numbness 07/16/2019 ESRD on dialysis 07/16/2019 Proteinuria 03/20/2017 Gastroparesis 03/19/2017 DELMA (acute kidney injury) 03/16/2017 Acute metabolic encephalopathy 03/16/2017 Cerebrovascular accident (CVA) due to embolism of left middle cerebral 03/15/2017 artery Hypothyroidism 03/15/2017 Diabetes mellitus 03/15/2017 Depression 03/15/2017 Anxiety 03/15/2017 GERD (gastroesophageal reflux disease) 03/15/2017 COPD (chronic obstructive pulmonary disease) 7 Chronic renal disease 03/15/2017 Hyperlipidemia 03/15/2017 History of thyroid cancer 03/15/2017 Blind 03/15/2017 Tobacco abuse 03/15/2017 Diabetic retinopathy 03/15/2017 Diabetic nephropathy 03/15/2017 Encounters Date Type Specialty Care Team Description 07/15/2019 - Hospital Encounter General Internal Nadege Douglas ness of both eyes (Primary Dx); 07/18/2019 Medicine MD Negar Cerebrovascular accident (CVA) due to em bolism of left middle cerebral artery ([facility]); Seth, Type 2 diabetes mellitus with other specified complication, with long-term current use of insulin ([facility]); MD Arvin ESRD on dialysis ([facility]); Shania Schultz Left sided nu mbness; MD Graham Anxiety; Ann Lim, Diabetic nep hropathy associated with diabetes mellitus due to underlying condition ([facility]); Other specified hypothyroidism; Acute metabolic encephalopathy; DELMA (acute kidn ey injury) ([facility]) 07/15/2019 Travel 07/15/2019 Documentation Internal Medicine Negar Douglas MD after 12/21/2018 Family History Medical History Relation Name Comments [...] travel history available. Last Filed Vital Signs Vital Sign Reading Time Taken Blood Pressure 163/76 07/18/2019 11:00 AM [facility]ATE HAND[facility]ER Pulse 85 07/18/2019 11:00 AM [facility] HAND[employer] Temperature 36.5 C (97.7 F) 07/18/2019 11:00 AM [facility]ATE HAND[employer]ER Respiratory Rate 18 07/18/2019 11:00 AM [facility] HAND[employer]ER Oxygen Saturation 98% 07/18/2019 11:00 AM [facility]ATE HAND[employer]ER Inhaled Oxygen Concentration - - Weight 98.8 kg (217 lb 13 oz) 07/16/2019 5:08 PM [facility]ATE HAND[employer]ER Height 162.6 cm (5' 4") 07/15/2019 9:22 PM [facility]ATE HAND[employer]ER Body Mass Index 37.39 07/16/2019 5:08 PM [facility]ATE HAND[employer]ER Plan of Treatment Health Maintenance Due Date Last Done Comments PNEUMOCOCCAL VACCINE 2-64 YEARS AT RISK (1 1980 of 3 - PCV13) CERVICAL CANCER SCREENING PAP ONLY (Age [birth year]10[birth year]1995 21-65) MEDICARE ANNUAL WELLNESS (YEAR 2 or FIRST 08/18/2017 YEAR if no IPPE) HEMOGLOBIN A1C 10/15/2019 07/16/2019, 03/15/2017 INFLUENZA VACCINE (Season Ended) 2020 07/23/2013 Procedures Procedure Name Priority Date/Time Associated Comments Diagnosis REPORT OF PROCEDURE - 07/21/2019 8:51 ENDOSCOPY SCAN AM [facility] RHYTHM STRIP - SCAN 07/21/2019 8:50 AM [facility]ER XR CHEST 1 VIEW STAT 07/18/2019 11:09 Results for this PORTABLE/BEDSIDE AM [facility] [facility] procedure a re in the results section. POCT-GLUCOSE METER Routine 07/18/2019 8:22 Resul ts for this AM [facility] procedure are i n the results section. CBC W/PLT COUNT & AUTO Routine 07/18/2019 4:37 R esults for this DIFFERENTIAL AM [employer] procedure are i n the results section. CBC W/PLT COUNT & AUTO Routine 07/18/2019 4:37 R esults for this DIFFERENTIAL AM [employer] procedure are i n the results section. PROTHROMBIN TIME/INR Routine 07/18/2019 4:37 Res ults for this AM [facility] procedure are i n the results section. PHOSPHORUS Routine 07/18/2019 4:37 Results for this AM [facility] [employer] procedure are i n the results section. MAGNESIUM Routine 07/18/2019 4:37 Results for this AM [facility] [employer] procedure are i n the results section. BASIC METABOLIC PANEL Routine 07/18/2019 4:37 Re sults for this (7) AM [facility] procedure are i n the results section. POCT-GLUCOSE METER Routine 07/17/2019 8:56 Resul ts for this PM [employer] procedure are i n the results section. POCT-GLUCOSE METER Routine 07/17/2019 5:07 Resul ts for this PM [employer] procedure are i n the results section. POCT-GLUCOSE METER Routine 07/17/2019 12:28 Resul ts for this PM [employer] procedure are i n the results section. SCREEN, URINE Routine 07/17/2019 11:36 Results for this AM [employer] procedure are i n the results section. POCT-GLUCOSE METER Routine 07/17/2019 7:18 Resul ts for this AM [facility] procedure are i n the results section. CBC W/PLT COUNT & AUTO Routine 07/17/2019 5:55 R esults for this DIFFERENTIAL AM [employer] procedure are i n the results section. CBC W/PLT COUNT & AUTO Routine 07/17/2019 5:55 R esults for this DIFFERENTIAL AM [employer] procedure are i n the results section. PROTHROMBIN TIME/INR Routine 07/17/2019 5:55 Res ults for this AM [employer] procedure are i n the results section. PHOSPHORUS Routine 07/17/2019 5:55 Results for this AM [employer] procedure are i n the results section. MAGNESIUM Routine 07/17/2019 5:55 Results for this AM [facility] [employer] procedure are i n the results section. BASIC METABOLIC PANEL Routine 07/17/2019 5:55 Re sults for this (7) AM [facility] procedure are i n the results section. MR BRAIN WITHOUT IV Routine 07/17/2019 12:54 Resu lts for this CONTRAST AM [employer] procedure are i n the results section. MRA NECK WITHOUT IV Routine 07/17/2019 12:54 Resu lts for this CONTRAST AM [employer] procedure are i n the results section. MRA HEAD WITHOUT IV Routine 07/17/2019 12:54 Resu lts for this CONTRAST AM [employer] procedure are i n the results section. ECHOCARDIOGRAM REPORT - 07/16/2019 9:20 SCAN PM [facility] POCT-GLUCOSE METER Routine 07/16/2019 9:03 Resul ts for this PM [employer] procedure are i n the results section. HEMODIALYSIS INPATIENT Routine 07/16/2019 5:23 R esults for this PM [employer] procedure are i n the results section. POCT-GLUCOSE METER Routine 07/16/2019 5:21 Resul ts for this PM [employer] procedure are i n the results section. HEPATITIS B SURFACE Routine 07/16/2019 1:41 Resu lts for this ANTIGEN PM [employer] procedure are i n the results section. POCT-GLUCOSE METER Routine 07/16/2019 1:01 Resul ts for this PM [employer] procedure are i n the results section. POCT-GLUCOSE METER Routine 07/16/2019 12:03 Resul ts for this PM [employer] procedure are i n the results section. 2D ECHO W/ DOPPLER Routine 07/16/2019 11:13 Resul ts for this (CW/PW/COLOR) AM [employer] procedure are in the results section. BASIC METABOLIC PANEL Routine 07/16/2019 8:40 Re sults for this (7) AM [employer] procedure are i n the results section. POCT-GLUCOSE METER Routine 07/16/2019 8:05 Resul ts for this AM [employer] procedure are i n the results section. ECG 12-LEAD STAT 07/16/2019 7:43 Results for this AM [facility] procedure are i n the results section. POCT-GLUCOSE METER Routine 07/16/2019 7:30 Resul ts for this AM [facility] procedure are i n the results section. XR CHEST 1 VIEW Routine 07/16/2019 7:04 Results for this PORTABLE/BEDSIDE AM [facility] procedure a re in the results section. POCT-GLUCOSE METER Routine 07/16/2019 5:21 Resul ts for this AM [facility] [employer] procedure are i n the results section. BASIC METABOLIC PANEL STAT 07/16/2019 5:14 Re sults for this (7) AM [facility] procedure are i n the results section. HEMOGLOBIN A1C Routine 07/16/2019 3:50 Results f or this AM [facility] [employer] procedure are i n the results section. CBC W/PLT COUNT & AUTO Routine 07/16/2019 3:49 R esults for this DIFFERENTIAL AM [employer] procedure are i n the results section. CBC W/PLT COUNT & AUTO Routine 07/16/2019 3:49 R esults for this DIFFERENTIAL AM [employer] procedure are i n the results section. LIPID PANEL Routine 07/16/2019 3:49 Results for this AM [facility] procedure are i n the results section. PHOSPHORUS Routine 07/16/2019 3:49 Results for this AM [employer] procedure are i n the results section. MAGNESIUM Routine 07/16/2019 3:49 Results for this AM [facility] procedure are i n the results section. HEPATIC FUNCTION PANEL Routine 07/16/2019 3:49 R esults for this AM [facility] procedure are i n the results section. BASIC METABOLIC PANEL Routine 07/16/2019 3:49 Re sults for this (7) AM [facility] procedure are i n the results section. HIV-1 ANTIGEN WITH Routine 07/16/2019 3:48 Resul ts for this HIV-1/2 ANTIBODY AM [employer] procedure a re in the results section. RPR Routine 07/16/2019 3:48 Results for this AM [employer] procedure are i n the results section. VITAMIN B12 AND FOLATE Routine 07/16/2019 3:48 R esults for this AM [employer] [employer] procedure are i n the results section. TSH/FREE T4 IF Routine 07/16/2019 3:48 Results f or this INDICATED AM [employer] procedure are i n the results section. PROTHROMBIN TIME/INR Routine 07/16/2019 3:48 Res ults for this AM [facility] [employer] procedure are i n the results section. POCT-GLUCOSE METER Routine 07/16/2019 3:34 Resul ts for this AM [facility] procedure are i n the results section. after 12/21/2018 Results EKG-SCANNED (07/21/2019 8:51 AM [facility]ATE [facility]ER) Narrative Performed At This result has an attachment that is no t available. RHYTHM STRIP - SCAN (07/21/2019 8:50 AM [facility]ATE HAND[employer]ER) Narrative Performed At This result has an attachment that is no t available. XR chest 1 view portable / bedside (07/18/2019 11:09 AM [facility]ATE HAND[employer]ER)Only the most recent of2 resultswithin the time period is included. Specimen Narrative Performed At FINAL REPORT [facility] RAD, CHEST, 1 VIEW, NON DEPT INDICATION: r/o pneumonia COMPARISON: July 16, 2019 FINDINGS: Portable frontal view of the c hest. IMPRESSION: Support Lines: Stable left IJ dual-lumen central venous catheter. Lungs and pleura: Lungs are clear. No ef fusion. No pneumothorax. Heart and mediastinum: Stable contours. Additional findings: None. Signed: JR Mccollum Robert MD Report Verified Date/Time:07/18/2019 11:27:35 Reading Location: [employer] y Reading Room Procedure Note Interface, External Ris In - 07/18/2019 11:29 AM [facility] HAND[facility]ER FINAL REPORT RAD, CHEST, 1 VIEW, NON DEPT INDICATION: r/o pneumonia COMPARISON: July 16, 2019 FINDINGS: Portable frontal view of the c hest. IMPRESSION: Support Lines: Stable left IJ dual-lumen central venous catheter. Lungs and pleura: Lungs are clear. No ef fusion. No pneumothorax. Heart and mediastinum: Stable contours. Additional findings: None. Signed: JR Mccollum Robert MD Report Verified Date/Time: 07/18/2019 1 1:27:35 Reading Location: [employer] Reading Room Performing Organization Address City/[facility] Cent[facility] Phone Number [facility] POC-Glucose meter (07/18/2019 8:22 AM [facility]ATE HANDLER)Only the most recent of13 results within the time period is included. POC-Glucose Meter 126 (H)Comment: : TESTED 70 - 110 mg/dL [facility] [address], [id number]: Machine Sole Leveler/Stress Analyst ID = [id number] for Baldomero Kuo Specimen Blood Performing Organization Address City/[facility] [place] [facility] Centercode Phone Number [facility] [address] [address] CENTER CBC with platelet count + automated diff (07/18/2019 4:37 AM [facility]ATE HANDLER)Only the most recent of3 resultswithin the time period is included. WBC 13.0 (H) 3.5 - 10.5 K/L [facility] RBC 3.80 (L) 3.93 - 5.22 M/L [facility] Hemoglobin 11.3 11.2 - 15.7 GM/DL [facility] Hematocrit 35.2 34.1 - 44.9 % [facility] MCV 92.6 79.4 - 94.8 fL [facility] MCH 29.7 25.6 - 32.2 pg [facility] MCHC 32.1 (L) 32.2 - 35.5 GM/DL [facility] RDW 13.6 11.7 - 14.4 % [facility] Platelets 233 150 - 450 K/CU MM [facility] MPV 9.5 9.4 - 12.3 fL [facility] nRBC 0 0 - 0 /100 WBC [facility] % Neutros 70 % [facility] % Lymphs 20 % [facility] % Monos 7 % [facility] % Eos 2 % [facility] % Baso 1 % [facility] # Neutros 9.09 (H) 1.56 - 6.13 K/L [facility] # Lymphs 2.65 1.18 - 3.74 K/L [facility] # Monos 0.93 (H) 0.24 - 0.36 K/L [facility] # Eos 0.24 0.04 - 0.36 K/L [facility] # Baso 0.07 0.01 - 0.08 K/L [facility] Immature Granulocytes-Relative 0 0 - 1 % [facility] Specimen Blood Performing Organization Address City/[facility] [place] [facility] Centercode Phone Number [address] [address] CENTER Prothrombin time/INR (07/18/2019 4:37 AM [facility]ATE HANDLER)Only the most recent of3 results within the time period is included. Protime 12.2 11.9 - 14.2 seconds [facility] INR 1.0 <=5.9 [facility] Specimen Blood Narrative Performed At Effective 01/12/2019: PT Reference Range [facility] Change New: 11.9-14.2Previous: 11.7-14.7 RECOMMENDED COUMADIN/WARFARIN INR THERAPY RANGES STANDARD DOSE: 2.0-3.0Includes: PROPHYLAXIS for venous thrombosis, systemic embolization; TREATMENT for venous thrombosis and/or pulmonary embolus. HIGH RISK: Target INR is 2.5-3.5 for patients wiht mechanical heart valves. Performing Organization Address [facility] [place] [facility] Centercowy Phone Number [address] [address] CENTER Phosphorus (07/18/2019 4:37 AM [employer]ATE HANDLER)Only the most recent of3 resultswithin the time period is included. Phosphorus 4.6 2.3 - 4.7 mg/dL [facility] Specimen Blood Performing Organization Address City/[facility]/Zipcode Phone Number [address] [address] CENTER Magnesium (07/18/2019 4:37 AM [employer]ATE HANDLER)Only the most recent of3 resultswithin the time period is included. Magnesium 2.0 1.6 - 2.6 mg/dL [facility] Specimen Blood Performing Organization Address City/[facility]/Zipcode Phone Number [address] [address] [place] Basic metabolic panel (07/18/2019 4:37 AM [employer]ATE HAND[employer]ER)Only the most recent of5 results within the time period is included. Sodium 134 (L) 136 - 145 meq/L [facility] Potassium 5.0 3.5 - 5.1 meq/L [facility] Chloride 103 98 - 107 meq/L [facility] CO2 25 22 - 29 meq/L [facility] BUN 28 (H) 7 - 21 mg/dL [facility] Creatinine 5.40 (H) 0.57 - 1.25 mg/dL [facility] Glucose 146 (H) 70 - 105 mg/dL [facility] Calcium 8.8 8.4 - 10.2 mg/dL [facility] EGFR 9Comment: ESTIMATED GFR IS mL/min/1.73 sq m [facility] NOT ACCURATE CREATININE [facility] CLEARANCE IN PREDICTING GLOMERULAR FILTRATION RATE. ESTIMATED GFR IS NOT APPLICABLE FOR DIALYSIS PATIENTS. Specimen Blood Performing Organization Address [facility] [place] [facility] Centercode Phone Number [address] [address] [place] Screen, urine (07/17/2019 11:36 AM SLATE HANDLER) Preg Test, Ur Negative [facility] Specimen Urine Performing Organization Address [facility]/Zipcode Phone Number [place] [phone] [place] [address] [place] MR brain without IV contrast (07/17/2019 12:54 AM [facility]ATE HANDLER) Specimen Narrative Performed At FINAL REPORT [facility] MR, BRAIN, WITHOUT CONTRAST, MR, MRA, NE CK, WITHOUT IV CONTRAST, MR, MRA, BRAIN, WITHOUT CONTRAST INDICATION: Stroke, follow up Stroke TECHNIQUE: Multiplanar, multisequence MR images of the brain.3-D time of flight MRA of the cranial and ce rvical circulation. 2-D time of flight MRA of the neck. 3D MIP angiog raphic post-processing was performed. Stenosis evaluation utilized NASCET criteria. COMPARISON: MRI brain March 17, 2017 FINDINGS: MRI BRAIN: Faint curvilinear DWI hyperintensity inv olving the left finley radiata, right internal capsule and righ t thalamus posterior margin associated with T2 FLAIR hyperintensity. No definite diminished ADC. Moderate cerebral white matter T2 FLAIR hyperintensities. Pontine T2 hyperintensities noted. Scattered remote infarcts are present. Moderate brain parenchymal volume loss w ith proportional prominence. No hydrocephalus. No acute intracranial hemorrhage or mass or midline shift. Bilateral globe deformities. Mild paranasal sinus callosal thickening. MRA BRAIN: Internal carotid arteries: Patent. Bottl es supraclinoid segment moderate stenoses. Bilateral posterior c ommunicating arteries are present. Middle cerebral arteries: Patent to dist al branches. Anterior cerebral arteries: High-grade s tenosis of right A1 segment. Patent left A1 segment. Patent anterior communicating artery distal ICAs. Basilar system: Patent vertebrobasilar s ystem. Posterior cerebral arteries:Patent beyon d the quadrigeminal segments. Additional findings: None. MRA NECK: Common carotid arteries: Origins are not imaged. Otherwise patent. Bifurcations: No flow-limiting stenosis. Cervical internal carotid arteries: No f low limiting stenosis. Vertebral arteries: Origins not imaged, otherwise patent. IMPRESSION: Faint DWI hyperintensity involving the l eft finley radiata, right internal capsule and right posterior nithya lamus suggestive of subacute ischemia versus T2 shine through artifac t. Moderate chronic angiopathic ischemic ch anges. 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 Patent bilateral cervical ICAs and verte bral arteries. Signed: Yg Ortiz MD Report Verified Date/Time:07/17/2019 03:28:33 Procedure Note Interface, External Ris In - 07/17/2019 4:57 AM [employer]ATE HANDLER FINAL REPORT MR, BRAIN, WITHOUT CONTRAST, MR, MRA, NE CK, WITHOUT IV CONTRAST, MR, MRA, BRAIN, WITHOUT CONTRAST INDICATION: Stroke, follow up Stroke TECHNIQUE: Multiplanar, multisequence MR images of the brain. 3-D time of flight MRA of the cranial and ce rvical circulation. 2-D time of flight MRA of the neck. 3D MIP angiog raphic post-processing was performed. Stenosis evaluation utilized NASCET criteria. COMPARISON: MRI brain March 17, 2017 FINDINGS: MRI BRAIN: Faint curvilinear DWI hyperintensity inv olving the left finley radiata, right internal capsule and righ t thalamus posterior margin associated with T2 FLAIR hyperintensity. No definite diminished ADC. Moderate cerebral white matter T2 FLAIR hyperintensities. Pontine T2 hyperintensities noted. Scattered remote infarcts are present. Moderate brain parenchymal volume loss w ith proportional prominence. No hydrocephalus. No acute intracranial hemorrhage or mass or midline shift. Bilateral globe deformities. Mild paranasal sinus callosal thickening. MRA BRAIN: Internal carotid arteries: Patent. Bottl es supraclinoid segment moderate stenoses. Bilateral posterior c ommunicating arteries are present. Middle cerebral arteries: Patent to dist al branches. Anterior cerebral arteries: High-grade s tenosis of right A1 segment. Patent left A1 segment. Patent anterior communicating artery distal ICAs. Basilar system: Patent vertebrobasilar s ystem. Posterior cerebral arteries:Patent beyon d the quadrigeminal segments. Additional findings: None. MRA NECK: Common carotid arteries: Origins are not imaged. Otherwise patent. Bifurcations: No flow-limiting stenosis. Cervical internal carotid arteries: No f low limiting stenosis. Vertebral arteries: Origins not imaged, otherwise patent. IMPRESSION: Faint DWI hyperintensity involving the l eft finley radiata, right internal capsule and right posterior nithya lamus suggestive of subacute ischemia versus T2 shine through artifac t. Moderate chronic angiopathic ischemic ch anges. 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 Patent bilateral cervical ICAs and verte bral arteries. Signed: Yg Ortiz MD Report Verified Date/Time: 07/17/2019 0 3:28:33 Performing Organization Address City/State/Zipcode Phone Number [employer] MR MRA neck without contrast (07/17/2019 12:54 AM [employer]ATE HANDLER) Specimen Narrative Performed At FINAL REPORT [employer] MR, BRAIN, WITHOUT CONTRAST, MR, MRA, NE CK, WITHOUT IV CONTRAST, MR, MRA, BRAIN, WITHOUT CONTRAST INDICATION: Stroke, follow up Stroke TECHNIQUE: Multiplanar, multisequence MR images of the brain.3-D time of flight MRA of the cranial and ce rvical circulation. 2-D time of flight MRA of the neck. 3D MIP angiog raphic post-processing was performed. Stenosis evaluation utilized NASCET criteria. COMPARISON: MRI brain March 17, 2017 FINDINGS: MRI BRAIN: Faint curvilinear DWI hyperintensity inv olving the left finley radiata, right internal capsule and righ t thalamus posterior margin associated with T2 FLAIR hyperintensity. No definite diminished ADC. Moderate cerebral white matter T2 FLAIR hyperintensities. Pontine T2 hyperintensities noted. Scattered remote infarcts are present. Moderate brain parenchymal volume loss w ith proportional prominence. No hydrocephalus. No acute intracranial hemorrhage or mass or midline shift. Bilateral globe deformities. Mild paranasal sinus callosal thickening. MRA BRAIN: Internal carotid arteries: Patent. Bottl es supraclinoid segment moderate stenoses. Bilateral posterior c ommunicating arteries are present. Middle cerebral arteries: Patent to dist al branches. Anterior cerebral arteries: High-grade s tenosis of right A1 segment. Patent left A1 segment. Patent anterior communicating artery distal ICAs. Basilar system: Patent vertebrobasilar s ystem. Posterior cerebral arteries:Patent beyon d the quadrigeminal segments. Additional findings: None. MRA NECK: Common carotid arteries: Origins are not imaged. Otherwise patent. Bifurcations: No flow-limiting stenosis. Cervical internal carotid arteries: No f low limiting stenosis. Vertebral arteries: Origins not imaged, otherwise patent. IMPRESSION: Faint DWI hyperintensity involving the l eft finley radiata, right internal capsule and right posterior nithya lamus suggestive of subacute ischemia versus T2 shine through artifac t. Moderate chronic angiopathic ischemic ch anges. 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 Patent bilateral cervical ICAs and verte bral arteries. Signed: Yg Ortiz MD Report Verified Date/Time:07/17/2019 03:28:33 Procedure Note Interface, External Ris In - 07/17/2019 4:57 AM SLATE HANDLER FINAL REPORT MR, BRAIN, WITHOUT CONTRAST, MR, MRA, NE CK, WITHOUT IV CONTRAST, MR, MRA, BRAIN, WITHOUT CONTRAST INDICATION: Stroke, follow up Stroke TECHNIQUE: Multiplanar, multisequence MR images of the brain. 3-D time of flight MRA of the cranial and ce rvical circulation. 2-D time of flight MRA of the neck. 3D MIP angiog raphic post-processing was performed. Stenosis evaluation utilized NASCET criteria. COMPARISON: MRI brain March 17, 2017 FINDINGS: MRI BRAIN: Faint curvilinear DWI hyperintensity inv olving the left finley radiata, right internal capsule and righ t thalamus posterior margin associated with T2 FLAIR hyperintensity. No definite diminished ADC. Moderate cerebral white matter T2 FLAIR hyperintensities. Pontine T2 hyperintensities noted. Scattered remote infarcts are present. Moderate brain parenchymal volume loss w ith proportional prominence. No hydrocephalus. No acute intracranial hemorrhage or mass or midline shift. Bilateral globe deformities. Mild paranasal sinus callosal thickening. MRA BRAIN: Internal carotid arteries: Patent. Bottl es supraclinoid segment moderate stenoses. Bilateral posterior c ommunicating arteries are present. Middle cerebral arteries: Patent to dist al branches. Anterior cerebral arteries: High-grade s tenosis of right A1 segment. Patent left A1 segment. Patent anterior communicating artery distal ICAs. Basilar system: Patent vertebrobasilar s ystem. Posterior cerebral arteries:Patent beyon d the quadrigeminal segments. Additional findings: None. MRA NECK: Common carotid arteries: Origins are not imaged. Otherwise patent. Bifurcations: No flow-limiting stenosis. Cervical internal carotid arteries: No f low limiting stenosis. Vertebral arteries: Origins not imaged, otherwise patent. IMPRESSION: Faint DWI hyperintensity involving the l eft finley radiata, right internal capsule and right posterior nithya lamus suggestive of subacute ischemia versus T2 shine through artifac t. Moderate chronic angiopathic ischemic ch anges. 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 Patent bilateral cervical ICAs and verte bral arteries. Signed: Yg Ortiz MD Report Verified Date/Time: 07/17/2019 0 3:28:33 Performing Organization Address City/State/Zipcode Phone Number [employer] MR MRA head without contrast (07/17/2019 12:54 AM SLATE HANDLER) Specimen Narrative Performed At FINAL REPORT [facility] LOVELY MR, BRAIN, WITHOUT CONTRAST, MR, MRA, NE CK, WITHOUT IV CONTRAST, MR, MRA, BRAIN, WITHOUT CONTRAST INDICATION: Stroke, follow up Stroke TECHNIQUE: Multiplanar, multisequence MR images of the brain.3-D time of flight MRA of the cranial and ce rvical circulation. 2-D time of flight MRA of the neck. 3D MIP angiog raphic post-processing was performed. Stenosis evaluation utilized NASCET criteria. COMPARISON: MRI brain March 17, 2017 FINDINGS: MRI BRAIN: Faint curvilinear DWI hyperintensity inv olving the left finley radiata, right internal capsule and righ t thalamus posterior margin associated with T2 FLAIR hyperintensity. No definite diminished ADC. Moderate cerebral white matter T2 FLAIR hyperintensities. Pontine T2 hyperintensities noted. Scattered remote infarcts are present. Moderate brain parenchymal volume loss w ith proportional prominence. No hydrocephalus. No acute intracranial hemorrhage or mass or midline shift. Bilateral globe deformities. Mild paranasal sinus callosal thickening. MRA BRAIN: Internal carotid arteries: Patent. Bottl es supraclinoid segment moderate stenoses. Bilateral posterior c ommunicating arteries are present. Middle cerebral arteries: Patent to dist al branches. Anterior cerebral arteries: High-grade s tenosis of right A1 segment. Patent left A1 segment. Patent anterior communicating artery distal ICAs. Basilar system: Patent vertebrobasilar s ystem. Posterior cerebral arteries:Patent beyon d the quadrigeminal segments. Additional findings: None. MRA NECK: Common carotid arteries: Origins are not imaged. Otherwise patent. Bifurcations: No flow-limiting stenosis. Cervical internal carotid arteries: No f low limiting stenosis. Vertebral arteries: Origins not imaged, otherwise patent. IMPRESSION: Faint DWI hyperintensity involving the l eft finley radiata, right internal capsule and right posterior nithya lamus suggestive of subacute ischemia versus T2 shine through artifac t. Moderate chronic angiopathic ischemic ch anges. 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 Patent bilateral cervical ICAs and verte bral arteries. Signed: Yg Ortiz MD Report Verified Date/Time:07/17/2019 03:28:33 Procedure Note Interface, External Ris In - 07/17/2019 4:57 AM SLATE HANDLER FINAL REPORT MR, BRAIN, WITHOUT CONTRAST, MR, MRA, NE CK, WITHOUT IV CONTRAST, MR, MRA, BRAIN, WITHOUT CONTRAST INDICATION: Stroke, follow up Stroke TECHNIQUE: Multiplanar, multisequence MR images of the brain. 3-D time of flight MRA of the cranial and ce rvical circulation. 2-D time of flight MRA of the neck. 3D MIP angiog raphic post-processing was performed. Stenosis evaluation utilized NASCET criteria. COMPARISON: MRI brain March 17, 2017 FINDINGS: MRI BRAIN: Faint curvilinear DWI hyperintensity inv olving the left finley radiata, right internal capsule and righ t thalamus posterior margin associated with T2 FLAIR hyperintensity. No definite diminished ADC. Moderate cerebral white matter T2 FLAIR hyperintensities. Pontine T2 hyperintensities noted. Scattered remote infarcts are present. Moderate brain parenchymal volume loss w ith proportional prominence. No hydrocephalus. No acute intracranial hemorrhage or mass or midline shift. Bilateral globe deformities. Mild paranasal sinus callosal thickening. MRA BRAIN: Internal carotid arteries: Patent. Bottl es supraclinoid segment moderate stenoses. Bilateral posterior c ommunicating arteries are present. Middle cerebral arteries: Patent to dist al branches. Anterior cerebral arteries: High-grade s tenosis of right A1 segment. Patent left A1 segment. Patent anterior communicating artery distal ICAs. Basilar system: Patent vertebrobasilar s ystem. Posterior cerebral arteries:Patent beyon d the quadrigeminal segments. Additional findings: None. MRA NECK: Common carotid arteries: Origins are not imaged. Otherwise patent. Bifurcations: No flow-limiting stenosis. Cervical internal carotid arteries: No f low limiting stenosis. Vertebral arteries: Origins not imaged, otherwise patent. IMPRESSION: Faint DWI hyperintensity involving the l eft finley radiata, right internal capsule and right posterior nithya lamus suggestive of subacute ischemia versus T2 shine through artifac t. Moderate chronic angiopathic ischemic ch anges. 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 Patent bilateral cervical ICAs and verte bral arteries. Signed: Yg Ortiz MD Report Verified Date/Time: 07/17/2019 0 3:28:33 Performing Organization Address City/State/Zipcode Phone Number [facility] RIS ECHOCARDIOGRAM REPORT - SCAN (07/16/2019 9:20 PM SLATE HANDLER) Narrative Performed At This result has an attachment that is no t available. HEMODIALYSIS INPATIENT (07/16/2019 5:23 PM SLATE HANDLER) Narrative Performed At Jeff Mcduffie RN 06/195:24 PM Verified HD treatment consent signed at chart, orders and latest lab results. Tolerated and completed3.5hours HD amol atment, Denies any discomfort or pain, Not in distress. UF net fluid removed1.0-liters. No com plaints made presented. Packed CVC both port with heparin 5000 u nits/ml and secured access with blue caps, gauze and tape. B lood sugar checked, 108. Report given toprimarynurse Lab Results Component Value Date GLUCOSE 91 07/16/2019 CALCIUM 8.6 07/16/2019 NA 135 (L) 07/16/2019 K 5.0 07/16/2019 CO2 21 (L) 07/16/2019 CL 104 07/16/2019 BUN 46 (H) 07/16/2019 CREATININE 6.99 (H) 07/16/2019 Lab Results Component Value Date WBC 6.9 07/16/2019 HGB 10.7 (L) 07/16/2019 HCT 33.5 (L) 07/16/2019 MCV 93.1 07/16/2019 PLT 235 07/16/2019 Lab Results Component Value Date HEPBSAG Nonreactive 07/16/2019 Hepatitis B surface antigen (07/16/2019 1:41 PM SLATE HANDLER) HBsAg Screen Nonreactive Nonreactive [facility] Specimen Blood Performing Organization Address City/State/Zipcode Phone Number [facility] [address] [place] [address] CENTER 2D Echo W/Doppler(CW/PW/Color) (07/16/2019 11:13 AM SLATE HANDLER) Ejection Fraction [facility] ECHO HEAR TLAB MKCKESSON CPA Specimen Narrative Performed At Transthoracic Echocardiography Report (T TE) [facility] ECHO HEARTLAB [facility] CPACS Demographics Patient NameSPeyman HUTCHINSON of Study07/16/2019 Gender Female Visit [id number] Race Unknown [id number] Number Date of 1975 ReferringMaoud [facility] Phys[facility] Age 43 year(s) SonographerDaja Arthur [facility] Groundhand Yanna McdonaldInterpreting Marcella Yanez MD [facility] Physician Procedure Type of Study TTE procedure:2DECHO W DOPPLER(CW/PW/COLOR) (TATA) Indications:Stroke work up. Clinical History HGB 10.7 HCT 33.5 % Multiple CVA's Hypothyroidism Diabetes ESRD Thyroid Cancer Contrast Medium: Definity. Amount - 3 ml Height: 64 inches Weight: 99.79 kg (220 lbs) BSA: 2.04 m^2 BMI: 37.76 kg/m^2 HR: 76 bpm BP: 104/56 mmHg Summary 1. Normal LV size and function. LV EF is normal (>60%) . 2. Normal RV size and function. 3. Grade 1 diastolic dysfunction (impaired relaxation and low-normal LA pressure). 4. Estimated peak systolic PA pressure is 20-25 mmHg + RA pressure. (RA pressure indeterminate on this exam) 5. IV saline contrast injection was negative for a PFO (patent foramen ovale) at rest and post Valsalva . Signature Findings Left Ventricle The left ventricle is chamber size (by PSLAX di mension) is normal (female - LVIDd 3.8-5 .2cm) . No rmal LV wall thickness. Al l of the LV segments contract normally . Gl obal LV systolic function normal . LV EF by Soliman's method of disk assessmen t is no rmal (>60%) . Intracavitary gradient is 20mmHg at re st. Gr jannet 1 diastolic dysfunction (impaired re laxation an d low-normal LA pressure). Left AtriumLA size is normal (16-34 ml/m2) . Right VentricleRV chamber size appears mildly enlarged . Gl obal RV systolic function is normal . Right Atrium RA cavity size is normal . Atrial SeptumIV saline contrast injection was negative for a PF O (p atent foramen ovale) at rest and post Va lsalva . Aortic Valve Mild AoV cusp thickening. Mitral Valve Mild MV leaflet thickening. Mi ld mitral annular calcification. Tricuspid ValveA trace of tricuspid regurgitation. Es timated peak systolic PA pressure is 20- 25 mmHg + RA pressure. (RA pressure indeterminate on this ex am) Pulmonic Valve PV is not well visualized; function appears normal by Doppler visualized. AortaAortic root size (SInus of Valsalva diameter) i s no rmal . PericardiumNo significant pericardial effusion is visualized. IVC/SVC/PA/PV/PleuralThe right upper pulmonary vein (RUPV) is normal . Th e estimated RA pressure by IVC dynamics in determinate . Th e inferior vena cava is not visualized. Chambers/Structures Left Atrium LA Volume: 57.48 mlLA Area: 17.9 cm^2 LA Vol. Index: 28 ml/m^2 Left Ventricle LVIDd: 4.42 cm LV Septum Diastolic: 0.93 cm LV PW Diastolic: 0.84 cm LVEDV Soliman's:67.82 ml LV Length: 8.61 cm LVESV Soliman's:24.12 ml LVEF Soliman's: 64.4 % LVEDVI: 33 ml/m^2 LVESVI: 12 ml/m^2 LVOT Diameter: 2 cm Right Ventricle TAPSE: 1.57 cm Aorta Ao Root S of Laura.: 2.55 cm Doppler/Quantitative Measurements Mitral Valve MV Peak E-Wave: 0.77 m/sMV Peak A-Wave: 1.02 m/s E/A Ratio: 0. 76 Peak Gradient: 2.37 mmHg Deceleration Time: 304.9 msec MV Jack. Peak: Tissue Doppler E' Lateral Velocity: 0.12 m/s E/E': 6.26 Aortic Valve Peak Velocity: 2.03 m/sMean Velocity: 1.44 m/s Peak Gradient: 16.47 mmHgMean Gradient: 9.29 mmHg AV Area (continuity): 2.15 cm^2 AV VTI: 38 cm AV DVI: 0.68 LVOT Peak Velocity: 1.15 m/s Peak Gradient: 5.3 mmHg Mean Velocity: 0.81 m/s Mean Gradient: 2.93 mmHg LVOT Diameter: 2 cm LVOT VTI: 26 cm LVOT Area: 3.14 cm^2LVOT SV:81.64 ml LVOT CO: 6.2 l/minLVOT CI: 3.04 l/min/m^2 Tricuspid Valve TR Velocity: 2.31 m/s TR Gradient: 21.42 mmHg Procedure Note Interface, External Ris In - 07/16/2019 2:11 PM SLATE HANDLER Transthoracic Echocardiography Report (TTE) Demographics Patient Name ARCHANA WOO Date of St udy 07/16/2019 Gender Female Visit Number [id number] Race Unknown [facility] r [id number] Number Date of 1975 Referring Arvin Ann Physician Age 43 year(s) Sonographe r Daja Arthur, [facility] Groundhand Yanna Blanchardi MD Oscar Dupont Physician Procedure Type of Study TTE procedure:2DECHO W DOPPLE R(CW/PW/COLOR) (TATA) Indications:Stroke work up. Clinical History HGB 10.7 HCT 33.5 % Multiple CVA's Hypothyroidism Diabetes ESRD Thyroid Cancer Contrast Medium: Definity. Amount - 3 ml Height: 64 inches Weight: 99.79 kg (220 lbs) BSA: 2.04 m^2 BMI: 37.76 kg/m^2 HR: 76 bpm BP: 104/56 mmHg Summary 1. Normal LV size and function. LV EF i s normal (>60%) . 2. Normal RV size and function. 3. Grade 1 diastolic dysfunction (impai red relaxation and low-normal LA pressure). 4. Estimated peak systolic PA pressure is 20-25 mmHg + RA pressure. (RA pressure indeterminate on this exam) 5. IV saline contrast injection was neg ative for a PFO (patent foramen ovale) at rest and post Valsalva . Signature Findings Left Ventricle The left ventric le is chamber size (by PSLAX dimension) is no rmal (female - LVIDd 3.8-5.2cm) . Normal LV wall t hickness. All of the LV se gments contract normally . Global LV systol ic function normal . LVEF by Soliman' s method of disk assessment is normal (>60%) . Intracavitary gradient is 20mmHg at rest. Grade 1 diastoli c dysfunction (impaired relaxation and low-normal L A pressure). Left Atrium LA size is larry l (16-34 ml/m2) . Right Ventricle RV chamber size appears mildly enlarged . Global RV systol ic function is normal . Right Atrium RA cavity size i s normal . Atrial Septum IV saline contra st injection was negative for a PFO (patent foramen ovale) at rest and post Valsalva . Aortic Valve Mild AoV cusp th ickening. Mitral Valve Mild MV leaflet thickening. Mild mitral manolo lar calcification. Tricuspid Valve A trace of tricu spid regurgitation. Estimated peak s ystolic PA pressure is 20-25 mmHg + RA pressure. (RA pressure indeterminate on this exam) Pulmonic Valve PV is not well v isualized; function appears normal by Doppler visua lized. Aorta Aortic root size (SInus of Valsalva diameter) is normal . Pericardium No significant p ericardial effusion is visualized. IVC/SVC/PA/PV/Pleural The right upper pulmonary vein (RUPV) is normal . The estimated RA pressure by IVC dynamics indeterminate . The inferior aaron a cava is not visualized. Chambers/Structures Left Atrium LA Volume: 57.48 ml LA Area: 17.9 cm^2 LA Vol. Index: 28 ml/m^2 Left Ventricle LVIDd: 4.42 cm LV Septum Diastolic: 0.93 cm LV PW Diastolic: 0.84 cm LVEDV Soliman's:67.82 ml LV Length: 8.61 cm LVESV Soliman's:24.12 ml LVEF Soliman's: 64.4 % LVEDVI: 33 ml/m^2 LVESVI: 12 ml/m^2 LVOT Diameter: 2 cm Right Ventricle TAPSE: 1.57 cm Aorta Ao Root S of Laura.: 2.55 cm Doppler/Quantitative Measurements Mitral Valve MV Peak E-Wave: 0.77 m/s M V Peak A-Wave: 1.02 m/s E /A Ratio: 0.76 P eak Gradient: 2.37 mmHg D eceleration Time: 304.9 msec MV Jack. Peak: Tissue Doppler E' Lateral Velocity: 0.12 m/s E /E': 6.26 Aortic Valve Peak Velocity: 2.03 m/s Mean Velocity: 1.44 m/s Peak Gradient: 16.47 mmHg Mean Gradient: 9.29 mmHg AV Area (continuity): 2.15 cm^2 AV VTI: 38 cm AV DVI: 0.68 LVOT Peak Velocity: 1.15 m/s Pea k Gradient: 5.3 mmHg Mean Velocity: 0.81 m/s Leah n Gradient: 2.93 mmHg LVOT Diameter: 2 cm LVO T VTI: 26 cm LVOT Area: 3.14 cm^2 LVO T SV:81.64 ml LVOT CO: 6.2 l/min LVO T CI: 3.04 l/min/m^2 Tricuspid Valve TR Velocity: 2.31 m/s TR Gradient: 21.42 mmHg Performing Organization Address City/State/Zipcode Phone Number [facility] HEART[facility] ECG 12 lead (07/16/2019 7:43 AM SLATE HANDLER) Specimen Narrative Performed At Ventricular Rate 87 BPM GE MUSE Atrial Rate 87 BPM P-R Interval 136 ms QRS Duration 72 ms Q-T Interval 380 ms QTC Calculation(Bazett) 457 ms P [place] 68 degrees R [place] 17 degrees T [place] 65 degrees Normal sinus rhythm Normal ECG When compared with ECG of 19-MAR-2017 15 :16, QT has shortened Confirmed by MD GUTIÉRREZ YOCHAI ([id number]) on 07/18/2019 7:35:43 AM Procedure Note Interface, External Ris In - 07/18/2019 7:35 AM SLATE HANDLER Ventricular Rate 87 BPM Atrial Rate 87 BPM P-R Interval 136 ms QRS Duration 72 ms Q-T Interval 380 ms QTC Calculation(Bazett) 457 ms P [place] 68 degrees R [place] 17 degrees T [place] 65 degrees Normal sinus rhythm Normal ECG When compared with ECG of 19-MAR-2017 15 :16, QT has shortened Confirmed by MD GUTIÉRREZ YOCHAI ([id number]) on 07/18/2019 7:35:43 AM Performing Organization Address City/[facility] Phone Number GE MUSE Hemoglobin A1c (07/16/2019 3:50 AM SLATE HANDLER) Hemoglobin A1C 9.5 (H) 4.3 - 6.1 % [facility] Specimen Blood Performing Organization Address [facility] Phone Number [address] [address] CENTER Hepatic function panel (07/16/2019 3:49 AM SLATE HANDLER) Protein, Total 6.3 6.0 - 8.3 gm/dL [facility] Albumin 3.0 (L) 3.5 - 5.0 g/dL [facility] Total Bilirubin 0.4 0.2 - 1.2 mg/dL [facility] Bilirubin, Direct 0.2 0.1 - 0.5 mg/dL [facility] Alkaline Phosphatase 182 (H) 40 - 150 U/L [facility] AST 63 (H) 5 - 34 U/L [facility] ALT 99 (H) 6 - 55 U/L [facility] Specimen Blood Performing Organization Address [facility] Phone Number [address] [address] [place] Lipid panel (07/16/2019 3:49 AM SLATE HANDLER) Triglycerides 100 mg/dL [facility] Cholesterol 177 mg/dL [facility] HDL 48 mg/dL [facility] LDL Calculated 109 mg/dL [facility] Specimen Blood Narrative Performed At Triglyceride Reference Range: [facility] Low Risk <150 [id number] High Risk 200-499 Very High Risk>=500 Cholesterol Reference Range: Low Risk <200 [id number] High Risk>240 HDL Cholesterol Reference Range: Low Risk >=60 High Risk <40 LDL Cholesterol Reference Range: Optimal<100 Near [id number] [id number] Very High >=190 Performing Organization Address City/State/Zipcode Phone Number [address] [phone] [place] Vitamin B12 and Folate (07/16/2019 3:48 AM SLATE HANDLER) Vitamin B12 525 213 - 816 pg/mL [facility] Folate 6.5 (L) >=7.0 ng/mL [facility] Specimen Blood Performing Organization Address City/[facility] Phone Number [address] [address] [place] TSH/Free T4 If Indicated (07/16/2019 3:48 AM SLATE HANDLER) TSH 0.87 0.35 - 4.94 uIU/mL [facility] Specimen Blood Performing Organization Address City/[facility]/Zipcode Phone Number [address] [address] [place] HIV-1 Antigen with HIV-1/2 Antibody (07/16/2019 3:48 AM SLATE HANDLER) HIV-1 Antigen with HIV 1&2 Nonreactive Nonreactive [facility] Specimen Blood Performing Organization Address City/State/Zipcode Phone Number [facility] [place] [place] [address] [place] [address] CENTER RPR (07/16/2019 3:48 AM SLATE HANDLER) RPR Nonreactive Nonreactive [facility] Specimen Blood Performing Organization Address City/State/Zipcode Phone Number [facility] [place] [place] [address] [place] [address] CENTER after 12/21/2018 Insurance Payer Benefit Plan / Subscriber ID Type Phone Address Group [facility] MEDICARE xxxxxxxxx MEDICARE MGD CARE HMO MEDICAID - MEDICAID [place] [employer] xxxxxxxxx Medicaid Contracted MGD CARE PLAN Advance Directives For more information, please contact:[place] [id number] [place], [place] [phone] Code Status Date Activated Date Inactivated Comments Full Code 07/16/2019 12:46 AM 07/18/2019 4:56 PM This code status was determined by: Patient Full Code 03/14/2017 8:30 PM 03/20/2017 12:11 PM This code status was determined by: Patient
--- OUTSIDE RECORDS SUMMARY | 2019-12-22 22:10 | XMS REPORT ---
:1975 Author Organization [facility] t Address [address] [place] [address] Care Team Providers Name Role Phone VIOLETA Unavailable Unavailable LYN EDWARDS Unavailable Unavailable Payers Payer Name Policy Type Policy Number Effective Date Expiration D ate Problems This patient has no known problems. Allergies, Adverse Reactions, Alerts Allergy Allergy Status Severity Reaction(s) Onset Inactive Treating C omments Name Type Date Date Clinician No Known DA Active U 2019-08 Allergies 06 00:00:0 0 Medications This patient has no known medications. Procedures and Interventions Procedure Date / Time Performed Performing Clinici an [id number] 2019-05-18 00:00:00 [id number] 2019-05-18 00:00:00 [id number] 2019-05-18 00:00:00 [id number] 2019-05-18 00:00:00 Encounters Start End Encounter Admission Attending Care Care Encounter Date/Time Date/Time Type Type Clinicians Facility Department ID 2019-04-12 Inpatient [facility] [id number] 13:57:46 Results Test Description Test Time Test Comments Text Results Atomic Results Result Comments HEPATITIS B SURF AB, QUANT 2019-09-21 18:16:00 Test Item Value Reference Range Comments HEPATITIS 1.1 ~~~~~~~~~~~~~~~~~~~~~~~~~~~~~~~~~~~~~~~~~~~~~~~~~~~~~~~~~~~~INTERPRETIVE B SURF AB, mIU/mL DATA: <5.00 mIU/ mL : Negative - Patient is considered to be notimmune to QUANT infection with H BV. >= 5.00 mIU/mL and <12.0 mIU/mL: Indeterminate - (test code Unable todetermi ne if anti-HBs is present at levels consistent = HBSABQ) withimmunity. Kodi herzog's immune status should be further assessedby considering othe r clinical information or retestinganother specimen drawn at a later time. >=12.0 mIU/mL: Positive - Anti-HBs detected at >10 mIU/mL.Patient i s considered to be immune to infection with HBV. Ithas not been determi dank what the clinical significance isfor values greater than >=12 mIU/mL , other than theindividual is considered to be immune to HBV infection.~~~~~~ ~~~~~~~~~~~~~~~~~~~~~~~~~~~~~~~~~~~~~~~~~~~~~~~~~~~~~~ AG HEPATITIS B [id number] 18:16:00 Test Item Value Reference Range Comments AG HEPATITIS B SURFACE (test code = HBSAG) NEGATIVE NONRE ACTIVE HIV 12 AB [id number] 18:16:00 Test Item Value Reference Range Comments HIV 1 2 COMBO AG/AB SCREEN (test code = AB/AG NON REACTIVE NONRE ACTIVE [id number]) HEPATITIS B SURF AB, [id number] 17:51:00 Test Item Value Reference Range Comments HEPATITIS B SURF AB, QUANT (test code = HBSABQ) mIU/mL AG HEPATITIS B [id number] 17:51:00 Test Item Value Reference Range Comments AG HEPATITIS B SURFACE (test code = HBSAG) NEGATIVE NONRE ACTIVE HIV 12 AB [id number] 17:51:00 Test Item Value Reference Range Comments HIV 1 2 COMBO AG/AB SCREEN (test code = AB/AG NON REACTIVE NONRE ACTIVE [id number]) HEPATITIS B SURF AB, [id number] 17:39:00 Test Item Value Reference Range Comments HEPATITIS B SURF AB, QUANT (test code = HBSABQ) mIU/mL AG HEPATITIS B [id number] 17:39:00 Test Item Value Reference Range Comments AG HEPATITIS B SURFACE (test code = HBSAG) NEGATIVE NONRE ACTIVE HIV 12 AB [id number] 17:39:00 Test Item Value Reference Range Comments HIV 1 2 COMBO AG/AB SCREEN (test code = [id number]) NONREACTIVE GLUCOSE BEDSIDE [id number] 12:00:00 Test Item Value Reference Range Comments GLUCOSE BEDSIDE TESTING (test code = GLUBED) 136 MG/DL 60- 99 GLUCOSE BEDSIDE [id number] 21:08:00 Test Item Value Reference Range Comments GLUCOSE BEDSIDE TESTING (test code = GLUBED) 84 MG/DL 60- 99 BASIC METABOLIC [id number] 16:40:00 Test Item Value Reference Range Comments SODIUM (test code = NA) 134 MMOL/L 137-145 POTASSIUM (test code = K) 4.0 MMOL/L 3.5-5.1 CHLORIDE (test code = CL) 99 MMOL/L 98-107 CARBON DIOXIDE (test code = 25 MMOL/L 22-30 CO2) ANION GAP (test code = GAP) 14 MMOL/L 14-24 GLUCOSE (test code = GLU) 81 MG/DL 74-106 BLOOD UREA NITROGEN (test code 23 MG/DL 7-17 = BUN) GLOMERULAR FILTRATION RATE 11 Repor ting units: ml/min/1.73 (test code = GFR) m2 (Modified MDRD Formula)Referenc e Range: > or = 60 ml/min/1 .73 m2 CREATININE (test code = CREAT) 4.40 MG/DL 0.52-1.04 CALCIUM (test code = CA) 9.0 MG/DL 8.4-10.2 HCG SERUM [id number] 16:40:00 Test Item Value Reference Range Comments HCG SERUM QUAL (test code = HCGQL) NEGATIVE NEGATIVE PROTHROMBIN [id number] 16:32:00 Test Item Value Reference Range Comments PROTHROMBIN TIME PATIENT (test 10.0 SECONDS 9.6-11.6 code = PTP) INTERNATIONAL NORMAL RATIO 0.9 0.8-1.1 The I NR is to be used only (test code = INR) for monitoring oral anticoagulantthe rapy. INDICATION INR VALUE 1. Prophylaxis, maco p venous thrombosis, i ncluding high risk surger y. 2.0 - 3 .0 2. Prophylaxis, maco p venous thrombosis, h ip surgery, treatme nt for deep venous t hrombosis or pulmonary pre vention of systemic embo lism in patients with valvular heart disease, a trial fibrillation, tissue heart valve, or acute myocardial in farction. 2.0 - 3.0 3 . Mechanical prost hesis heart valves, recurrent systemic embolis m. 3.0 - 4. 5 Comments to Pbx Inspector: PREOPPTT [id number] 16:32:00 Test Item Value Reference Range Comments PTT ACTIVATED (test code = APTT) 30.3 SECONDS 22.0-33.0 Comments to Pbx Inspector: PREOPBASIC METABOLIC [id number] 16:32:00 Test Item Value Reference Range Comments SODIUM (test code = NA) 134 MMOL/L 137-145 POTASSIUM (test code = K) 4.0 MMOL/L 3.5-5.1 CHLORIDE (test code = CL) 99 MMOL/L 98-107 CARBON DIOXIDE (test code = CO2) MMOL/L 22-30 GLUCOSE (test code = GLU) MG/DL 74-106 BLOOD UREA NITROGEN (test code = BUN) MG/DL 7-17 GLOMERULAR FILTRATION RATE (test code = GFR) CREATININE (test code = CREAT) MG/DL 0.52-1.04 CALCIUM (test code = CA) MG/DL 8.7-9.7 HCG SERUM [id number] 16:32:00 Test Item Value Reference Range Comments HCG SERUM QUAL (test code = HCGQL) NEGATIVE NEGATIVE BASIC METABOLIC [id number] 16:31:00 Test Item Value Reference Range Comments SODIUM (test code = NA) 134 MMOL/L 137-145 POTASSIUM (test code = K) 4.0 MMOL/L 3.5-5.1 CHLORIDE (test code = CL) 99 MMOL/L 98-107 CARBON DIOXIDE (test code = CO2) MMOL/L 22-30 GLUCOSE (test code = GLU) MG/DL 74-106 BLOOD UREA NITROGEN (test code = BUN) MG/DL 7-17 GLOMERULAR FILTRATION RATE (test code = GFR) CREATININE (test code = CREAT) MG/DL 0.52-1.04 CALCIUM (test code = CA) MG/DL 8.7-9.7 HCG SERUM [id number] 16:31:00 Test Item Value Reference Range Comments HCG SERUM QUAL (test code = HCGQL) NEGATIVE CBC W/AUTO [id number] 16:25:00 Test Item Value Reference Range Comments WHITE BLOOD CELL (test code = WBC) 8.2 K/MM3 3.8-9.8 RED BLOOD CELL (test code = RBC) 4.14 M/MM3 3.58-4.97 HEMOGLOBIN (test code = HGB) 13.0 G/DL 11.2-14.9 HEMATOCRIT (test code = HCT) 39.1 % 33.2-43.5 MEAN CELL VOLUME (test code = MCV) 94 fL 80.7-99.1 MEAN CELL HGB (test code = MCH) 31.4 pg 27.0-34.1 MEAN CELL HGB CONCETRATION (test code = MCHC) 33.2 % 32 .2-35.7 RED CELL DISTRIBUTION WIDTH (test code = RDW) 13.6 % 12 .1-15.2 PLATELET COUNT (test code = PLT) 268 K/MM3 129-368 MEAN PLATELET VOLUME (test code = MPV) 10.1 fl 7.4-10.4 NEUTROPHIL % (test code = NT%) 48.7 % 43-75 IMMATURE GRANULOCYTE % (test code = IG%) 0.4 % 0.0-2.0 LYMPHOCYTE % (test code = LY%) 39.9 % 14-44 MONOCYTE % (test code = MO%) 8.6 % 4-13 EOSINOPHIL % (test code = EO%) 1.7 % 0-6 BASOPHIL % (test code = BA%) 0.7 % 0-2 NUCLEATED RBC % (test code = NRBC%) 0.0 % 0-1.0 NEUTROPHIL # (test code = NT#) 4.00 K/mm3 2.0-7.6 IMMATURE GRANULOCYTE # (test code = IG#) 0.03 x10 3/uL 0-0.03 LYMPHOCYTE # (test code = LY#) 3.28 K/mm3 1.0-3.8 MONOCYTE # (test code = MO#) 0.71 K/mm3 0.1-0.8 EOSINOPHIL # (test code = EO#) 0.14 K/mm3 0.0-0.2 BASOPHIL # (test code = BA#) 0.06 K/mm3 0.0-0.2 NUCLEATED RBC # (test code = NRBC#) 0.00 K/mm3 0.0-0.1 GLUCOSE BEDSIDE [id number] 18:41:00 Test Item Value Reference Range Comments GLUCOSE BEDSIDE TESTING (test code = GLUBED) 83 MG/DL 60- 99 BASIC METABOLIC [id number] 15:04:00 Test Item Value Reference Range Comments SODIUM (test code = NA) 136 MMOL/L 137-145 POTASSIUM (test code = K) 3.9 MMOL/L 3.5-5.1 CHLORIDE (test code = CL) 97 MMOL/L 98-107 CARBON DIOXIDE (test code = 22 MMOL/L 22-30 CO2) ANION GAP (test code = GAP) 21 MMOL/L 14-24 GLUCOSE (test code = GLU) 183 MG/DL 74-106 BLOOD UREA NITROGEN (test code 30 MG/DL 7-17 = BUN) GLOMERULAR FILTRATION RATE 6 Repor ting units: ml/min/1.73 (test code = GFR) m2 (Modified MDRD Formula)Referenc e Range: > or = 60 ml/min/1 .73 m2 CREATININE (test code = CREAT) 6.90 MG/DL 0.52-1.04 CALCIUM (test code = CA) 9.1 MG/DL 8.4-10.2 BASIC METABOLIC [id number] 15:00:00 Test Item Value Reference Range Comments SODIUM (test code = NA) 136 MMOL/L 137-145 POTASSIUM (test code = K) 3.9 MMOL/L 3.5-5.1 CHLORIDE (test code = CL) 97 MMOL/L 98-107 CARBON DIOXIDE (test code = CO2) MMOL/L 22-30 GLUCOSE (test code = GLU) MG/DL 74-106 BLOOD UREA NITROGEN (test code = BUN) MG/DL 7-17 GLOMERULAR FILTRATION RATE (test code = GFR) CREATININE (test code = CREAT) MG/DL 0.52-1.04 CALCIUM (test code = CA) MG/DL 8.7-9.7 HCG SERUM [id number] 14:59:00 Test Item Value Reference Range Comments HCG SERUM QUAL (test code = HCGQL) NEGATIVE NEGATIVE PROTHROMBIN [id number] 14:56:00 Test Item Value Reference Range Comments PROTHROMBIN TIME PATIENT (test 9.8 SECONDS 9.6-11.6 code = PTP) INTERNATIONAL NORMAL RATIO 0.9 0.8-1.1 The I NR is to be used only (test code = INR) for monitoring oral anticoagulantthe rapy. INDICATION INR VALUE 1. Pr ophylaxis, deep venous thro mbosis, including high r isk surgery. 2.0 - 3.0 2. Pr ophylaxis, deep venous thro mbosis, hip surgery, amol atment for deep venous t hrombosis or pulmonary pre vention of systemic embol ism in patients with valvular heart disease, a trial fibrillation, tissue heart valve, or acute myocardial in farction. 2.0 - 3.0 3. Mechanical prosthesis heart valves, recurrent system ic embolism. 3.0 - 4.5 PTT [id number] 14:56:00 Test Item Value Reference Range Comments PTT ACTIVATED (test code = APTT) 27.9 SECONDS 22.0-33.0 CBC W/AUTO [id number] 14:43:00 Test Item Value Reference Range Comments WHITE BLOOD CELL (test code = WBC) 7.7 K/MM3 3.8-9.8 RED BLOOD CELL (test code = RBC) 3.72 M/MM3 3.58-4.97 HEMOGLOBIN (test code = HGB) 11.5 G/DL 11.2-14.9 HEMATOCRIT (test code = HCT) 35.0 % 33.2-43.5 MEAN CELL VOLUME (test code = MCV) 94 fL 80.7-99.1 MEAN CELL HGB (test code = MCH) 30.9 pg 27.0-34.1 MEAN CELL HGB CONCETRATION (test code = MCHC) 32.9 % 32 .2-35.7 RED CELL DISTRIBUTION WIDTH (test code = RDW) 14.4 % 12 .1-15.2 PLATELET COUNT (test code = PLT) 249 K/MM3 129-368 MEAN PLATELET VOLUME (test code = MPV) 10.0 fl 7.4-10.4 NEUTROPHIL % (test code = NT%) 75.2 % 43-75 IMMATURE GRANULOCYTE % (test code = IG%) 0.6 % 0.0-2.0 LYMPHOCYTE % (test code = LY%) 17.2 % 14-44 MONOCYTE % (test code = MO%) 6.1 % 4-13 EOSINOPHIL % (test code = EO%) 0.3 % 0-6 BASOPHIL % (test code = BA%) 0.6 % 0-2 NUCLEATED RBC % (test code = NRBC%) 0.0 % 0-1.0 NEUTROPHIL # (test code = NT#) 5.82 K/mm3 2.0-7.6 IMMATURE GRANULOCYTE # (test code = IG#) 0.05 x10 3/uL 0-0.03 LYMPHOCYTE # (test code = LY#) 1.33 K/mm3 1.0-3.8 MONOCYTE # (test code = MO#) 0.47 K/mm3 0.1-0.8 EOSINOPHIL # (test code = EO#) 0.02 K/mm3 0.0-0.2 BASOPHIL # (test code = BA#) 0.05 K/mm3 0.0-0.2 NUCLEATED RBC # (test code = NRBC#) 0.00 K/mm3 0.0-0.1 RAD, CHEST, 1 VIEW, NON [id number] 11:27:00Reason for exam:->r/o pneumoniaShould this be performed at the bedside?->YesFINAL REPORT RAD, CHEST, 1 VIEW, NON DEPT INDICATION: r/o pneumonia COMPARISON : July 16, 2019 FINDINGS: Portable frontal view of the chest. IMPRESSION: Support Lines: Stable left IJ dual-lumen central venous catheter. Lungs and pleura: Lungs are clear. No effusion. No pneumothorax.Heart and mediastinum: Stable contours. Additional findings: None. Signed: JR Mccollum Robert MDReport Verified Date/Time: 07/18/2019 11:27:35 Reading Location: [facility] Radiology Reading Room POCT-GLUCOSE [id number] 08:34:00 Test Item Value Reference Range Comments POC-GLUCOSE METER (BEAKER) 126 mg/dL 70-110 : GONZAL[facility] NHAN AT [facility] [address] (test code = 1538) [place], [address]: [employer] Supervisor/Technic tobi ID = [id number] for AyaanIsabelmaria t BASIC METABOLIC [id number] 06:56:00 Test Item Value Reference Range Comments SODIUM (BEAKER) (test 134 meq/L 136-145 code = 381) POTASSIUM (BEAKER) (test 5.0 meq/L 3.5-5.1 code = 379) CHLORIDE (BEAKER) (test 103 meq/L 98-107 code = 382) CO2 (BEAKER) (test code = 25 meq/L 22-29 355) BLOOD UREA NITROGEN 28 mg/dL 7-21 (BEAKER) (test code = 354) CREATININE (BEAKER) (test 5.40 mg/dL 0.57-1.25 code = 358) GLUCOSE RANDOM (BEAKER) 146 mg/dL 70-105 (test code = 652) CALCIUM (BEAKER) (test 8.8 mg/dL 8.4-10.2 code = 697) EGFR (BEAKER) (test code 9 mL/min/1.73 sq m MIRTHA MATED GFR IS NOT = 1092) ACCURATE CREA TININE CLEARANCE IN PRE DICTING GLOMERULAR FILTR ATION RATE. ESTIMATED GFR IS NOT APPLICABLE F OR DIALYSIS PATIENT S. [id number] 06:45:00 Test Item Value Reference Range Comments PHOSPHORUS (BEAKER) (test code = 604) 4.6 mg/dL 2.3-4.7 [id number] 06:45:00 Test Item Value Reference Range Comments MAGNESIUM (BEAKER) (test code = 627) 2.0 mg/dL 1.6-2.6 CBC W/PLT COUNT & AUTO [id number] 05:35:00 Test Item Value Reference Range Comments WHITE BLOOD CELL COUNT (BEAKER) (test code = 13.0 K/ L 3.5 -10.5 775) RED BLOOD CELL COUNT (BEAKER) (test code = 761) 3.80 M/ L 3.93-5.22 HEMOGLOBIN (BEAKER) (test code = 410) 11.3 GM/DL 11.2-15.7 HEMATOCRIT (BEAKER) (test code = 411) 35.2 % 34.1-44.9 MEAN CORPUSCULAR VOLUME (BEAKER) (test code = 92.6 fL 79 .4-94.8 753) MEAN CORPUSCULAR HEMOGLOBIN (BEAKER) (test code 29.7 pg 25.6-32.2 = 751) MEAN CORPUSCULAR HEMOGLOBIN CONC (BEAKER) (test 32.1 GM/DL 32.2-35.5 code = 752) RED CELL DISTRIBUTION WIDTH (BEAKER) (test code 13.6 % 11.7-14.4 = 412) PLATELET COUNT (BEAKER) (test code = 756) 233 K/CU MM 150-45 0 MEAN PLATELET VOLUME (BEAKER) (test code = 754) 9.5 fL 9.4-12.3 NUCLEATED RED BLOOD CELLS (BEAKER) (test code = 0 /100 WBC 0-0 413) NEUTROPHILS RELATIVE PERCENT (BEAKER) (test code 70 % = 429) LYMPHOCYTES RELATIVE PERCENT (BEAKER) (test code 20 % = 430) MONOCYTES RELATIVE PERCENT (BEAKER) (test code = 7 % 431) EOSINOPHILS RELATIVE PERCENT (BEAKER) (test code 2 % = 432) BASOPHILS RELATIVE PERCENT (BEAKER) (test code = 1 % 437) NEUTROPHILS ABSOLUTE COUNT (BEAKER) (test code = 9.09 K/ L 1.56-6.13 670) LYMPHOCYTES ABSOLUTE COUNT (BEAKER) (test code = 2.65 K/ L 1.18-3.74 414) MONOCYTES ABSOLUTE COUNT (BEAKER) (test code = 0.93 K/ L 0 .24-0.36 415) EOSINOPHILS ABSOLUTE COUNT (BEAKER) (test code = 0.24 K/ L 0.04-0.36 416) BASOPHILS ABSOLUTE COUNT (BEAKER) (test code = 0.07 K/ L 0 .01-0.08 417) IMMATURE GRANULOCYTES-RELATIVE PERCENT (BEAKER) 0 % 0-1 (test code = 2801) PROTHROMBIN [id number] 05:24:00 Test Item Value Reference Range Comments PROTIME (BEAKER) (test code = 759) 12.2 seconds 11.9-14.2 INR (BEAKER) (test code = 370) 1.0 <=5.9 Effective 01/12/2019: PT Reference Range ChangeNew: 11.9-14.2 Previous: 11.7- 14.7RECOMMENDED COUMADIN/WARFARIN INR THERAPY RANGESSTANDARD DOSE: 2.0-3.0 Includes: PROPHYLAXIS for venous thrombosis, systemic embolization; TREATMENT for venous thrombosis and/or pulmonary embolus.HIGH RISK: Target INR is2.5-3.5 for patients wiht mechanical heart valves.POCT-GLUCOSE [id number] 21:08:00 Test Item Value Reference Range Comments POC-GLUCOSE METER (BEAKER) 191 mg/dL 70-110 : GONZALO JUSTIN AT [address] (test code = 1538) [facility], [address]: Mill [employer] Supervisor/Technic tobi ID = [id number] for Heidi Bowens POCT-GLUCOSE [id number] 17:20:00 Test Item Value Reference Range Comments POC-GLUCOSE METER (BEAKER) 168 mg/dL 70-110 : GONZALO JUSTIN AT [address] (test code = 1538) [facility], [address]: [employer] Supervisor/Technic tobi ID = [id number] for BURRIS, RACHAEL [place] POCT-GLUCOSE [id number] 12:49:00 Test Item Value Reference Range Comments POC-GLUCOSE METER (BEAKER) 221 mg/dL 70-110 : GONZALO JUSTIN AT [address] (test code = 1538) [facility], [address]: [employer] Supervisor/Technic tobi ID = [id number] for BURRIS, RACHAEL IA SCREEN, [id number] 11:54:00 Test Item Value Reference Range Comments TEST URINE (BEAKER) (test code = 583) Negative POCT-GLUCOSE [id number] 09:11:00 Test Item Value Reference Range Comments POC-GLUCOSE METER (BEAKER) 112 mg/dL 70-110 : GONZALO JUSTIN AT [address] (test code = 1538) [facility], [address]: [employer] Supervisor/Technic tobi ID = [id number] for BURRIS, RACHAEL IA BASIC METABOLIC [id number] 06:50:00 Test Item Value Reference Range Comments SODIUM (BEAKER) (test 136 meq/L 136-145 code = 381) POTASSIUM (BEAKER) (test 4.8 meq/L 3.5-5.1 code = 379) CHLORIDE (BEAKER) (test 103 meq/L 98-107 code = 382) CO2 (BEAKER) (test code = 26 meq/L 22-29 355) BLOOD UREA NITROGEN 16 mg/dL 7-21 (BEAKER) (test code = 354) CREATININE (BEAKER) (test 3.77 mg/dL 0.57-1.25 code = 358) GLUCOSE RANDOM (BEAKER) 120 mg/dL 70-105 (test code = 652) CALCIUM (BEAKER) (test 8.9 mg/dL 8.4-10.2 code = 697) EGFR (BEAKER) (test code 13 mL/min/1.73 sq m EST IMATED GFR IS NOT = 1092) ACCURATE CREA TININE CLEARANCE IN PRE DICTING GLOMERULAR FILTR ATION RATE. ESTIMATED GFR IS NOT APPLICABLE F OR DIALYSIS PATIENT S. [id number] 06:38:00 Test Item Value Reference Range Comments PHOSPHORUS (BEAKER) (test code = 604) 3.9 mg/dL 2.3-4.7 [id number] 06:38:00 Test Item Value Reference Range Comments MAGNESIUM (BEAKER) (test code = 627) 1.9 mg/dL 1.6-2.6 PROTHROMBIN [id number] 06:12:00 Test Item Value Reference Range Comments PROTIME (BEAKER) (test code = 759) 12.1 seconds 11.9-14.2 INR (BEAKER) (test code = 370) 0.9 <=5.9 Effective 01/12/2019: PT Reference Range ChangeNew: 11.9-14.2 Previous: 11.7- 14.7RECOMMENDED COUMADIN/WARFARIN INR THERAPY RANGESSTANDARD DOSE: 2.0-3.0 Includes: PROPHYLAXIS for venous thrombosis, systemic embolization; TREATMENT for venous thrombosis and/or pulmonary embolus.HIGH RISK: Target INR is2.5-3.5 for patients wiht mechanical heart valves.CBC W/PLT COUNT & AUTO [id number] 06:06:00 Test Item Value Reference Range Comments WHITE BLOOD CELL COUNT (BEAKER) (test code = 8.3 K/ L 3.5 -10.5 775) RED BLOOD CELL COUNT (BEAKER) (test code = 761) 3.62 M/ L 3.93-5.22 HEMOGLOBIN (BEAKER) (test code = 410) 11.0 GM/DL 11.2-15.7 HEMATOCRIT (BEAKER) (test code = 411) 33.0 % 34.1-44.9 MEAN CORPUSCULAR VOLUME (BEAKER) (test code = 91.2 fL 79 .4-94.8 753) MEAN CORPUSCULAR HEMOGLOBIN (BEAKER) (test code 30.4 pg 25.6-32.2 = 751) MEAN CORPUSCULAR HEMOGLOBIN CONC (BEAKER) (test 33.3 GM/DL 32.2-35.5 code = 752) RED CELL DISTRIBUTION WIDTH (BEAKER) (test code 13.9 % 11.7-14.4 = 412) PLATELET COUNT (BEAKER) (test code = 756) 228 K/CU MM 150-45 0 MEAN PLATELET VOLUME (BEAKER) (test code = 754) 9.5 fL 9.4-12.3 NUCLEATED RED BLOOD CELLS (BEAKER) (test code = 0 /100 WBC 0-0 413) NEUTROPHILS RELATIVE PERCENT (BEAKER) (test code 60 % = 429) LYMPHOCYTES RELATIVE PERCENT (BEAKER) (test code 30 % = 430) MONOCYTES RELATIVE PERCENT (BEAKER) (test code = 8 % 431) EOSINOPHILS RELATIVE PERCENT (BEAKER) (test code 2 % = 432) BASOPHILS RELATIVE PERCENT (BEAKER) (test code = 1 % 437) NEUTROPHILS ABSOLUTE COUNT (BEAKER) (test code = 4.92 K/ L 1.56-6.13 670) LYMPHOCYTES ABSOLUTE COUNT (BEAKER) (test code = 2.43 K/ L 1.18-3.74 414) MONOCYTES ABSOLUTE COUNT (BEAKER) (test code = 0.68 K/ L 0 .24-0.36 415) EOSINOPHILS ABSOLUTE COUNT (BEAKER) (test code = 0.15 K/ L 0.04-0.36 416) BASOPHILS ABSOLUTE COUNT (BEAKER) (test code = 0.05 K/ L 0 .01-0.08 417) IMMATURE GRANULOCYTES-RELATIVE PERCENT (BEAKER) 0 % 0-1 (test code = 2801) [id number] 04:27:00 Test Item Value Reference Range Comments RPR SCREEN (BEAKER) (test code = 420) Nonreactive Nonreactiv e MR, MRA, BRAIN, WITHOUT [id number] 03:28:00Reason for exam:- >StrokeWhat is the patient's sedation requirement?->No SedationFINAL REPORT MR, BRAIN, WITHOUT CONTRAST, MR, MRA, NECK, WITHOUT IV CONTRAST,MR, MRA, BRAIN, WITHOUT CONTRAST INDICATION: Stroke, follow upStroke TECHNIQUE: Multiplanar, multisequence MR images of the brain. 3-D time of flight MRA of the cranial and cervical circulation. 2-D time of flight MRA of the neck. 3D MIP angiographic post-processing was performed. Stenosis evaluation utilized NASCET [...] cervical ICAs and vertebral arteries. Signed: Yg Colney MDReport Verified Date/Time: 07/17/2019 03:28:33 MR, MRA, NECK, WITHOUT IV [id number] 03:28:00FINAL REPORT MR, BRAIN, WITHOUT CONTRAST, MR, [...] Verified Date/Time: 07/17/2019 03:28:33 MR, BRAIN, WITHOUT [id number] 03:28:00 Reason for exam:->StrokeWhat is the patient's sedation requirement?->No [...] cervical ICAs and vertebral arteries. Signed: Yg Conleyeport Verified Date/Time: 07/17/2019 03:28:33 POCT-GLUCOSE [id number] 21:16:00 Test Item Value Reference Range Comments POC-GLUCOSE METER (BEAKER) 143 mg/dL 70-110 : GONZALO NHAN AT [facility] [address] [place] [address] (test code = 1538) [facility], [address]: [employer] Supervisor/Technic tobi ID = [id number] for CARRIE VIVAR POCT-GLUCOSE [id number] 17:33:00 Test Item Value Reference Range Comments POC-GLUCOSE METER (BEAKER) 108 mg/dL 70-110 : GONZALO NHAN AT [address] (test code = 1538) [facility], [address]: [employer] Supervisor/Technic tobi ID = [id number] for TAVON VANEGAS POCT-GLUCOSE [id number] 17:25:00 Test Item Value Reference Range Comments POC-GLUCOSE METER (BEAKER) 155 mg/dL 70-110 : GONZALO NHAN AT [address] (test code = 1538) [facility], [address]: [employer] Supervisor/Technic tobi ID = [id number] for SIMON SALMON HEPATITIS B SURFACE [id number] 14:30:00 Test Item Value Reference Range Comments HEPATITIS B SURFACE ANTIGEN (2) (BEAKER) (test Nonreactive N onreactive code = 2585) POCT-GLUCOSE [id number] 12:17:00 Test Item Value Reference Range Comments POC-GLUCOSE METER (BEAKER) 146 mg/dL 70-110 : GONZALO NHAN AT [address] (test code = 1538) [facility], [address]: [employer] Supervisor/Technic tobi ID = [id number] for RACHAEL BURRIS [place] BASIC METABOLIC [id number] 09:26:00 Test Item Value Reference Range Comments SODIUM (BEAKER) (test 135 meq/L 136-145 code = 381) POTASSIUM (BEAKER) (test 5.0 meq/L 3.5-5.1 code = 379) CHLORIDE (BEAKER) (test 104 meq/L 98-107 code = 382) CO2 (BEAKER) (test code = 21 meq/L 22-29 355) BLOOD UREA NITROGEN 46 mg/dL 7-21 (BEAKER) (test code = 354) CREATININE (BEAKER) (test 6.99 mg/dL 0.57-1.25 code = 358) GLUCOSE RANDOM (BEAKER) 91 mg/dL 70-105 (test code = 652) CALCIUM (BEAKER) (test 8.6 mg/dL 8.4-10.2 code = 697) EGFR (BEAKER) (test code 6 mL/min/1.73 sq m MIRTHA MATED GFR IS NOT = 1092) ACCURATE CREA TININE CLEARANCE IN PRE DICTING GLOMERULAR FILTR ATION RATE. ESTIMATED GFR IS NOT APPLICABLE F OR DIALYSIS PATIENT S. POCT-GLUCOSE [id number] 08:27:00 Test Item Value Reference Range Comments POC-GLUCOSE METER (BEAKER) 106 mg/dL 70-110 : GONZALO NHAN AT [facility] [address] [facility] (test code = 1538) [facility], [address]: [employer] Supervisor/Technic tobi ID = [id number] for SIMON SALMON POCT-GLUCOSE [id number] 07:46:00 Test Item Value Reference Range Comments POC-GLUCOSE METER (TAINA) 171 mg/dL 70-110 : GONZALO NHAN AT [facility] [address] [facility] (test code = 1538) [facility], [address] [address]: [employer] Supervisor/Technic tobi ID = [id number] for AMBIKA SANABRIA RAD, CHEST, 1 VIEW, NON [id number] 07:36:00Reason for exam:- >baselineShould this be performed at the bedside?->YesFINAL REPORT TECHNIQUE: Frontal view of the chest. INDICATION: baseline. AMY RISON: None. FINDINGS: LINES/TUBES: Left IJ tunneled central [...] volumes. Signed: Swapnil Chery MDReport Verified Date/Time: 07/16/2019 07:36:01 Reading Location: [facility] B1 C013Y CT Body Reading Room HEMOGLOBIN [id number] 06:42:00 Test Item Value Reference Range Comments HEMOGLOBIN A1C (BEAKER) (test code = 368) 9.5 % 4.3-6. 1 BASIC METABOLIC [id number] 06:27:00 Test Item Value Reference Range Comments SODIUM (BEAKER) (test 131 meq/L 136-145 code = 381) POTASSIUM (BEAKER) (test 6.5 meq/L 3.5-5.1 No hemo lysis code = 379) CHLORIDE (BEAKER) (test 100 meq/L 98-107 code = 382) CO2 (BEAKER) (test code = 23 meq/L 22-29 355) BLOOD UREA NITROGEN 45 mg/dL 7-21 (BEAKER) (test code = 354) CREATININE (BEAKER) (test 6.82 mg/dL 0.57-1.25 code = 358) GLUCOSE RANDOM (BEAKER) 535 mg/dL 70-105 (test code = 652) CALCIUM (BEAKER) (test 8.2 mg/dL 8.4-10.2 code = 697) EGFR (BEAKER) (test code 7 mL/min/1.73 sq m MIRTHA MATED GFR IS NOT = 1092) ACCURATE CREA TININE CLEARANCE IN PRE DICTING GLOMERULAR FILTR ATION RATE. ESTIMATED GFR IS NOT APPLICABLE F OR DIALYSIS PATIENT S. HIV-1 ANTIGEN WITH HIV-1/2 [id number] 05:52:00 Test Item Value Reference Range Comments HIV-1 ANTIGEN WITH HIV 1\T\2 ANTIBODY (2) Nonreactive Nonrea ctive (BEAKER) (test code = 2586) POCT-GLUCOSE [id number] 05:38:00 Test Item Value Reference Range Comments POC-GLUCOSE METER (BEAKER) 420 mg/dL 70-110 : Not ified RN/MD: TESTED AT (test code = 1538) [facility] [address] [facility], [address]: [employer]/ Afternoon Nanny ID = [id number] for YASMINE SANABRIA TSH/FREE T4 IF [id number] 05:11:00 Test Item Value Reference Range Comments THYROID STIMULATING HORMONE (BEAKER) (test code 0.87 uIU/mL 0.35-4.94 = 772) VITAMIN B12 AND [id number] 05:11:00 Test Item Value Reference Range Comments VITAMIN B12 (BEAKER) (test code = 774) 525 pg/mL 213-816 FOLATE (BEAKER) (test code = 362) 6.5 ng/mL >=7.0 BASIC METABOLIC [id number] 04:57:00 Test Item Value Reference Range Comments SODIUM (BEAKER) (test 130 meq/L 136-145 code = 381) POTASSIUM (BEAKER) (test 6.7 meq/L 3.5-5.1 No hemo lysis code = 379) CHLORIDE (BEAKER) (test 99 meq/L 98-107 code = 382) CO2 (BEAKER) (test code = 23 meq/L 22-29 355) BLOOD UREA NITROGEN 44 mg/dL 7-21 (BEAKER) (test code = 354) CREATININE (BEAKER) (test 6.74 mg/dL 0.57-1.25 code = 358) GLUCOSE RANDOM (BEAKER) 616 mg/dL 70-105 (test code = 652) CALCIUM (BEAKER) (test 8.2 mg/dL 8.4-10.2 code = 697) EGFR (BEAKER) (test code 7 mL/min/1.73 sq m MIRTHA MATED GFR IS NOT = 1092) ACCURATE CREA TININE CLEARANCE IN PRE DICTING GLOMERULAR FILTR ATION RATE. ESTIMATED GFR IS NOT APPLICABLE F OR DIALYSIS PATIENT S. [id number] 04:47:00 Test Item Value Reference Range Comments PHOSPHORUS (BEAKER) (test code = 604) 5.5 mg/dL 2.3-4.7 [id number] 04:47:00 Test Item Value Reference Range Comments MAGNESIUM (BEAKER) (test code = 627) 2.0 mg/dL 1.6-2.6 LIPID [id number] 04:47:00 Test Item Value Reference Range Comments TRIGLYCERIDES (BEAKER) (test code = 540) 100 mg/dL CHOLESTEROL (BEAKER) (test code = 631) 177 mg/dL HDL CHOLESTEROL (BEAKER) (test code = 976) 48 mg/dL LDL CHOLESTEROL CALCULATED (BEAKER) (test code = 109 mg/dL 633) Triglyceride Reference Range: Low Risk <150 Borderline 150-199 High Risk 200-499 Very High Risk >=500Cholesterol Reference Range: Low Risk <200 Borderline 200-239 High Risk >240HDL Cholesterol Reference Range: Low Risk >=60 High Risk <40LDL Cholesterol Reference Range: Optimal <100 Near Optimal 100-129 Borderline 130-159 High 160-189 Very High >=190HEPATIC FUNCTION [id number] 04:47:00 Test Item Value Reference Range Comments TOTAL PROTEIN (BEAKER) (test code = 770) 6.3 gm/dL 6.0-8.3 ALBUMIN (BEAKER) (test code = 1145) 3.0 g/dL 3.5-5.0 BILIRUBIN TOTAL (BEAKER) (test code = 377) 0.4 mg/dL 0.2-1 .2 BILIRUBIN DIRECT (BEAKER) (test code = 706) 0.2 mg/dL 0.1- 0.5 ALKALINE PHOSPHATASE (BEAKER) (test code = 346) 182 U/L 40-150 AST (SGOT) (BEAKER) (test code = 353) 63 U/L 5-34 ALT (SGPT) (BEAKER) (test code = 347) 99 U/L 6-55 PROTHROMBIN [id number] 04:11:00 Test Item Value Reference Range Comments PROTIME (BEAKER) (test code = 759) 12.3 seconds 11.9-14.2 INR (BEAKER) (test code = 370) 1.0 <=5.9 Effective 01/12/2019: PT Reference Range ChangeNew: 11.9-14.2 Previous: 11.7- 14.7RECOMMENDED COUMADIN/WARFARIN INR THERAPY RANGESSTANDARD DOSE: 2.0-3.0 Includes: PROPHYLAXIS for venous thrombosis, systemic embolization; TREATMENT for venous thrombosis and/or pulmonary embolus.HIGH RISK: Target INR is2.5-3.5 for patients wiht mechanical heart valves.CBC W/PLT COUNT & AUTO [id number] 04:03:00 Test Item Value Reference Range Comments WHITE BLOOD CELL COUNT (BEAKER) (test code = 6.9 K/ L 3.5 -10.5 775) RED BLOOD CELL COUNT (BEAKER) (test code = 761) 3.60 M/ L 3.93-5.22 HEMOGLOBIN (BEAKER) (test code = 410) 10.7 GM/DL 11.2-15.7 HEMATOCRIT (BEAKER) (test code = 411) 33.5 % 34.1-44.9 MEAN CORPUSCULAR VOLUME (BEAKER) (test code = 93.1 fL 79 .4-94.8 753) MEAN CORPUSCULAR HEMOGLOBIN (BEAKER) (test code 29.7 pg 25.6-32.2 = 751) MEAN CORPUSCULAR HEMOGLOBIN CONC (BEAKER) (test 31.9 GM/DL 32.2-35.5 code = 752) RED CELL DISTRIBUTION WIDTH (BEAKER) (test code 13.8 % 11.7-14.4 = 412) PLATELET COUNT (BEAKER) (test code = 756) 235 K/CU MM 150-45 0 MEAN PLATELET VOLUME (BEAKER) (test code = 754) 9.9 fL 9.4-12.3 NUCLEATED RED BLOOD CELLS (BEAKER) (test code = 0 /100 WBC 0-0 413) NEUTROPHILS RELATIVE PERCENT (BEAKER) (test code 66 % = 429) LYMPHOCYTES RELATIVE PERCENT (BEAKER) (test code 23 % = 430) MONOCYTES RELATIVE PERCENT (BEAKER) (test code = 8 % 431) EOSINOPHILS RELATIVE PERCENT (BEAKER) (test code 2 % = 432) BASOPHILS RELATIVE PERCENT (BEAKER) (test code = 1 % 437) NEUTROPHILS ABSOLUTE COUNT (BEAKER) (test code = 4.55 K/ L 1.56-6.13 670) LYMPHOCYTES ABSOLUTE COUNT (BEAKER) (test code = 1.61 K/ L 1.18-3.74 414) MONOCYTES ABSOLUTE COUNT (BEAKER) (test code = 0.58 K/ L 0 .24-0.36 415) EOSINOPHILS ABSOLUTE COUNT (BEAKER) (test code = 0.12 K/ L 0.04-0.36 416) BASOPHILS ABSOLUTE COUNT (BEAKER) (test code = 0.05 K/ L 0 .01-0.08 417) IMMATURE GRANULOCYTES-RELATIVE PERCENT (BEAKER) 0 % 0-1 (test code = 2801) POCT-GLUCOSE [id number] 03:47:00 Test Item Value Reference Range Comments POC-GLUCOSE METER (BEAKER) > mg/dL 70-110 : Not ified RN/MD: TESTED AT (test code = 1538) [facility] [address] [facility], [address]: [employer]/ Afternoon Nanny ID = [id number] for SARHA , NADINA FACTOR 5 LEIDEN PCR (THROMBOTIC RISK)2017-03-24 19:24:00 Test Item Value Reference Range Comments FACTOR V LEIDEN (BEAKER) Negative for the R506Q (Factor (test code = 718) V Leiden) mutation [id number] (BEAKER) Martínez Wang MD (electronic (test code = 2599) signature) This test is a genotyping assay [...] developed and its performance characteristics determined bythe [facility], Section of Molecular Pathology. It has not been cleared or approved by the U.S. Food and Drug Administration (FDA), since FDA approval is not requ ired for clinical use of the test. Validation was done as required by the Clinical Laboratory Improvement Amendments of 1988.POCT-GLUCOSE [id number] 07:28:00 Test Item Value Reference Range Comments POC-GLUCOSE METER (BEAKER) 200 mg/dL 70-110 TESTE D AT [facility] [address] [facility] (test code = 1538) [place] [address] POCT-GLUCOSE [id number] 21:18:00 Test Item Value Reference Range Comments POC-GLUCOSE METER (BEAKER) 211 mg/dL 70-110 TESTE D AT [facility] [address] [facility] (test code = 1538) [place] [address] PROTEIN, RANDOM [id number] 19:43:00 Test Item Value Reference Range Comments PROTEIN, URINE (BEAKER) (test code = 1569) 286 mg/dL 0-14 CREATININE, RANDOM [id number] 18:27:00 Test Item Value Reference Range Comments CREATININE URINE (BEAKER) (test code = 375) 29.3 mg/dL Reference Range: No NormalsDILUTE SHIRA VIPER VENOM (DRVV)2017-03-19 12:47:00 Test Item Value Reference Range Comments PROTIME (BEAKER) (test code = 11.3 seconds 11.7-14.7 759) INR (BEAKER) (test code = 370) 0.8 <=5.9 PARTIAL THROMBOPLASTIN TIME 28.0 seconds 22.5-36.0 (BEAKER) (test code = 760) DRVV INTERPRETATION (BEAKER) Normal DRVV Results (test code = 2406) DRVV INTERPRETATION (BEAKER) Normal Hexagonal Phospholipid (test code = 726386) [id number] (BEAKER) Martínez Wang MD (electronic (test code = 2610) signature) DRVV SCREEN RATIO (BEAKER) 0.84 <1.20 (test code = 2707) Effective 12/20/2013: Test Method ChangeDRVV Screen Ratio, DRVV 1/1 Screen Ratio, DRVV Confirm Ratio,DRVV Normalized Ratio Reference Range: <1.2Protime Reference Range ChangeNew: 11.7-14.7 Previous: 9.8-12.0PTT Reference Range ChangeNew: 22.5-36.0 Previous: 25.8-34.5URINE [id number] 11:40:00 Test Item Value Reference Range Comments CULTURE (BEAKER) (test code = 20-29,000 col/mL skin lei 1095) POCT-GLUCOSE [id number] 08:33:00 Test Item Value Reference Range Comments POC-GLUCOSE METER (BEAKER) 293 mg/dL 70-110 TESTE D AT [facility] [address] [facility] (test code = 1538) [facility] [address] VITAMIN D, 28-[id number] 07:49:00 Test Item Value Reference Range Comments VITAMIN D 25-OH (BEAKER) (test code = 2764) < ng/mL 13.0 -47.8 CBC W/PLT COUNT & AUTO [id number] 05:59:00 Test Item Value Reference Range Comments WHITE BLOOD CELL COUNT (BEAKER) (test code = 9.4 K/ L 3.5 -10.5 775) RED BLOOD CELL COUNT (BEAKER) (test code = 761) 4.16 M/ L 3.93-5.22 HEMOGLOBIN (BEAKER) (test code = 410) 12.7 GM/DL 11.2-15.7 HEMATOCRIT (BEAKER) (test code = 411) 38.0 % 34.1-44.9 MEAN CORPUSCULAR VOLUME (BEAKER) (test code = 91.3 fL 79 .4-94.8 753) MEAN CORPUSCULAR HEMOGLOBIN (BEAKER) (test code 30.5 pg 25.6-32.2 = 751) MEAN CORPUSCULAR HEMOGLOBIN CONC (BEAKER) (test 33.4 GM/DL 32.2-35.5 code = 752) RED CELL DISTRIBUTION WIDTH (BEAKER) (test code 12.6 % 11.7-14.4 = 412) PLATELET COUNT (BEAKER) (test code = 756) 329 K/CU MM 150-45 0 MEAN PLATELET VOLUME (BEAKER) (test code = 754) 10.0 fL 9.4-12.3 NUCLEATED RED BLOOD CELLS (BEAKER) (test code = 0 /100 WBC 0-0 413) NEUTROPHILS RELATIVE PERCENT (BEAKER) (test code 68 % = 429) LYMPHOCYTES RELATIVE PERCENT (BEAKER) (test code 23 % = 430) MONOCYTES RELATIVE PERCENT (BEAKER) (test code = 7 % 431) EOSINOPHILS RELATIVE PERCENT (BEAKER) (test code 1 % = 432) BASOPHILS RELATIVE PERCENT (BEAKER) (test code = 1 % 437) NEUTROPHILS ABSOLUTE COUNT (BEAKER) (test code = 6.35 K/ L 1.56-6.13 670) LYMPHOCYTES ABSOLUTE COUNT (BEAKER) (test code = 2.16 K/ L 1.18-3.74 414) MONOCYTES ABSOLUTE COUNT (BEAKER) (test code = 0.68 K/ L 0 .24-0.36 415) EOSINOPHILS ABSOLUTE COUNT (BEAKER) (test code = 0.10 K/ L 0.04-0.36 416) BASOPHILS ABSOLUTE COUNT (BEAKER) (test code = 0.06 K/ L 0 .01-0.08 417) IMMATURE GRANULOCYTES-RELATIVE PERCENT (BEAKER) 0 % 0-1 (test code = 2801) BASIC METABOLIC [id number] 05:38:00 Test Item Value Reference Range Comments SODIUM (BEAKER) (test 135 meq/L 136-145 code = 381) POTASSIUM (BEAKER) (test 4.1 meq/L 3.5-5.1 code = 379) CHLORIDE (BEAKER) (test 102 meq/L 98-107 code = 382) CO2 (BEAKER) (test code = 25 meq/L 22-29 355) BLOOD UREA NITROGEN 12 mg/dL 7-21 (BEAKER) (test code = 354) CREATININE (BEAKER) (test 1.99 mg/dL 0.57-1.25 code = 358) GLUCOSE RANDOM (BEAKER) 290 mg/dL 70-105 (test code = 652) CALCIUM (BEAKER) (test 8.7 mg/dL 8.4-10.2 code = 697) EGFR (BEAKER) (test code 27 mL/min/1.73 sq m EST IMATED GFR IS NOT = 1092) ACCURATE CREA TININE CLEARANCE IN PRE DICTING GLOMERULAR FILTR ATION RATE. ESTIMATED GFR IS NOT APPLICABLE F OR DIALYSIS PATIENT S. [id number] 05:37:00 Test Item Value Reference Range Comments PHOSPHORUS (BEAKER) (test code = 604) 4.1 mg/dL 2.3-4.7 [id number] 05:37:00 Test Item Value Reference Range Comments MAGNESIUM (BEAKER) (test code = 627) 1.7 mg/dL 1.6-2.6 PTH, [id number] 05:34:00 Test Item Value Reference Range Comments PARATHYROID HORMONE INTACT (BEAKER) (test code = 57.2 pg/mL 8.5-72.5 577) Effective 07/04/2014: Reference Range ChangeNew: 8.5-72.5 Previous: 15.0-90.0 CARDIOLIPIN ANTIBODIES, IGG AND [id number] 22:36:00 Test Item Value Reference Range Comments ANTICARDIOLIPIN IGG ANTIBODY (BEAKER) (test code = < GPL 712) ANTICARDIOLIPIN IGM ANTIBODY (BEAKER) (test code = 2.8 MPL 713) Anticardiolipin IgG Result Interpretation:NEG: <20 GPL; U/mlPOS: >/=20 GPL; U/mlAnticardiolipin IgM Result Interpretation:NEG: <20 MPL; U/mlPOS: >/=20 MPL; U/mlPOCT-GLUCOSE [id number] 21:25:00 Test Item Value Reference Range Comments POC-GLUCOSE METER (BEAKER) 198 mg/dL 70-110 TESTE D AT [facility] [address] [facility] (test code = 1538) [facility] [address] POCT-GLUCOSE [id number] 16:29:00 Test Item Value Reference Range Comments POC-GLUCOSE METER (BEAKER) 296 mg/dL 70-110 TESTE D AT [address] (test code = 1538) [place] [address] ANTI-NUCLEAR ANTIBODY (MARY)2017-03-18 15:30:00 Test Item Value Reference Range Comments ANTI-NUCLEAR ANTIBODY (MARY) (BEAKER) (test code = Negative Negative 418) HEXAGONAL [id number] 13:21:00 Test Item Value Reference Range Comments HEXAGONAL PHOSPHOLIPID (BEAKER) (test code = 1790) Negative POCT-GLUCOSE [id number] 12:15:00 Test Item Value Reference Range Comments POC-GLUCOSE METER (BEAKER) 140 mg/dL 70-110 TESTE D AT [address] (test code = 1538) [place] [address] PROTEIN C [id number] 11:44:00 Test Item Value Reference Range Comments PROTEIN C ACTIVITY (BEAKER) (test code = 582) 155.0 % 70 .0-130.0 Effective 12/20/2013: Reference Range Change-Adult onlyNew: 70.0-130.0 Previous: 70.0-140.0See Protein C Antigen.ANTITHROMBIN [id number] 11:43:00 Test Item Value Reference Range Comments ANTITHROMBIN III ACTIVITY (BEAKER) (test code = 711) 87.0 % 80.0-120.0 Effective 12/20/2013: Reference Range Change-Adult onlyNew: 80.0-120.0 Previous: 90.0-128.0POCT-GLUCOSE [id number] 08:17:00 Test Item Value Reference Range Comments POC-GLUCOSE METER (BEAKER) 107 mg/dL 70-110 TESTE D AT [address] (test code = 1538) [place] [address] BASIC METABOLIC [id number] 06:32:00 Test Item Value Reference Range Comments SODIUM (BEAKER) (test 136 meq/L 136-145 code = 381) POTASSIUM (BEAKER) (test 3.6 meq/L 3.5-5.1 code = 379) CHLORIDE (BEAKER) (test 104 meq/L 98-107 code = 382) CO2 (BEAKER) (test code = 23 meq/L 22-29 355) BLOOD UREA NITROGEN 11 mg/dL 7-21 (BEAKER) (test code = 354) CREATININE (BEAKER) (test 1.68 mg/dL 0.57-1.25 code = 358) GLUCOSE RANDOM (BEAKER) 99 mg/dL 70-105 (test code = 652) CALCIUM (BEAKER) (test 8.4 mg/dL 8.4-10.2 code = 697) EGFR (BEAKER) (test code 33 mL/min/1.73 sq m EST IMATED GFR IS NOT = 1092) ACCURATE CREA TININE CLEARANCE IN PRE DICTING GLOMERULAR FILTR ATION RATE. ESTIMATED GFR IS NOT APPLICABLE F OR DIALYSIS PATIENT S. CBC W/PLT COUNT & AUTO [id number] 05:56:00 Test Item Value Reference Range Comments WHITE BLOOD CELL COUNT (BEAKER) (test code = 11.7 K/ L 3.5 -10.5 775) RED BLOOD CELL COUNT (BEAKER) (test code = 761) 3.95 M/ L 3.93-5.22 HEMOGLOBIN (BEAKER) (test code = 410) 12.1 GM/DL 11.2-15.7 HEMATOCRIT (BEAKER) (test code = 411) 36.3 % 34.1-44.9 MEAN CORPUSCULAR VOLUME (BEAKER) (test code = 91.9 fL 79 .4-94.8 753) MEAN CORPUSCULAR HEMOGLOBIN (BEAKER) (test code 30.6 pg 25.6-32.2 = 751) MEAN CORPUSCULAR HEMOGLOBIN CONC (BEAKER) (test 33.3 GM/DL 32.2-35.5 code = 752) RED CELL DISTRIBUTION WIDTH (BEAKER) (test code 12.7 % 11.7-14.4 = 412) PLATELET COUNT (BEAKER) (test code = 756) 349 K/CU MM 150-45 0 MEAN PLATELET VOLUME (BEAKER) (test code = 754) 10.8 fL 9.4-12.3 NUCLEATED RED BLOOD CELLS (BEAKER) (test code = 0 /100 WBC 0-0 413) NEUTROPHILS RELATIVE PERCENT (BEAKER) (test code 59 % = 429) LYMPHOCYTES RELATIVE PERCENT (BEAKER) (test code 31 % = 430) MONOCYTES RELATIVE PERCENT (BEAKER) (test code = 8 % 431) EOSINOPHILS RELATIVE PERCENT (BEAKER) (test code 2 % = 432) BASOPHILS RELATIVE PERCENT (BEAKER) (test code = 1 % 437) NEUTROPHILS ABSOLUTE COUNT (BEAKER) (test code = 6.87 K/ L 1.56-6.13 670) LYMPHOCYTES ABSOLUTE COUNT (BEAKER) (test code = 3.57 K/ L 1.18-3.74 414) MONOCYTES ABSOLUTE COUNT (BEAKER) (test code = 0.90 K/ L 0 .24-0.36 415) EOSINOPHILS ABSOLUTE COUNT (BEAKER) (test code = 0.24 K/ L 0.04-0.36 416) BASOPHILS ABSOLUTE COUNT (BEAKER) (test code = 0.06 K/ L 0 .01-0.08 417) IMMATURE GRANULOCYTES-RELATIVE PERCENT (BEAKER) 0 % 0-1 (test code = 2801) POCT-GLUCOSE [id number] 04:32:00 Test Item Value Reference Range Comments POC-GLUCOSE METER (BEAKER) 107 mg/dL 70-110 TESTE D AT [address] (test code = 1538) [place] [address] POCT-GLUCOSE [id number] 22:21:00 Test Item Value Reference Range Comments POC-GLUCOSE METER (BEAKER) 118 mg/dL 70-110 TESTE D AT [address] (test code = 1538) [place] [address] POCT-GLUCOSE [id number] 21:22:00 Test Item Value Reference Range Comments POC-GLUCOSE METER (BEAKER) 52 mg/dL 70-110 Notif debra LEAHY MD/TESTED AT [facility] (test code = 1538) [address] [place] [id number] MICROALBUMIN, RANDOM [id number] 17:57:00 Test Item Value Reference Range Comments MICROALBUMIN URINE (BEAKER) (test code = 1794) > mg/dL Reference Range: No NormalsURINALYSIS W/ [id number] 17:36:00 Test Item Value Reference Range Comments COLOR (BEAKER) (test code = 470) Light Yellow CLARITY (BEAKER) (test code = 469) Clear SPECIFIC GRAVITY UA (BEAKER) (test code = 468) 1.005 1 .001-1.035 PH UA (BEAKER) (test code = 467) 7.0 5.0-8.0 PROTEIN UA (BEAKER) (test code = 464) 300 mg/dL Negative GLUCOSE UA (BEAKER) (test code = 365) 30 mg/dL Negative KETONES UA (BEAKER) (test code = 371) Negative Negative BILIRUBIN UA (BEAKER) (test code = 462) Negative Negative BLOOD UA (BEAKER) (test code = 461) Negative Negative NITRITE UA (BEAKER) (test code = 465) Negative Negative LEUKOCYTE ESTERASE UA (BEAKER) (test code = Negative Nega tive 466) UROBILINOGEN UA (BEAKER) (test code = 463) 0.2 mg/dL 0.2-1 .0 RBC UA (BEAKER) (test code = 519) 1 /HPF WBC UA (BEAKER) (test code = 520) < /HPF BACTERIA (BEAKER) (test code = 517) Rare SQUAMOUS EPITHELIAL (BEAKER) (test code = 516) 1 /HPF SOURCE(BEAKER) (test code = 2795) Urine, Voided SCREEN, [id number] 17:36:00 Test Item Value Reference Range Comments TEST URINE (BEAKER) (test code = 583) Negative CREATININE, RANDOM [id number] 17:35:00 Test Item Value Reference Range Comments CREATININE URINE (BEAKER) (test code = 375) 33.9 mg/dL Reference Range: No NormalsSODIUM, RANDOM [id number] 17:35:00 Test Item Value Reference Range Comments SODIUM URINE (BEAKER) (test code = 243) 63 meq/L Reference Range: No NormalsPOCT-GLUCOSE [id number] 17:34:00 Test Item Value Reference Range Comments POC-GLUCOSE METER (BEAKER) 118 mg/dL 70-110 TESTE D AT [facility] [address] [facility] (test code = 1538) [place] [address] POCT-GLUCOSE [id number] 13:28:00 Test Item Value Reference Range Comments POC-GLUCOSE METER (BEAKER) 71 mg/dL 70-110 TESTE D AT [facility] [address] [facility] (test code = 1538) [place] [address] POCT-GLUCOSE [id number] 10:37:00 Test Item Value Reference Range Comments POC-GLUCOSE METER (BEAKER) 144 mg/dL 70-110 TESTE D AT [facility] [address] [facility] (test code = 1538) [facility] [address] POCT-GLUCOSE [id number] 07:18:00 Test Item Value Reference Range Comments POC-GLUCOSE METER (BEAKER) 60 mg/dL 70-110 TESTE D AT [facility] [address] [facility] (test code = 1538) [facility] [address] CBC W/PLT COUNT & AUTO [id number] 05:51:00 Test Item Value Reference Range Comments WHITE BLOOD CELL COUNT (BEAKER) (test code = 11.4 K/ L 3.5 -10.5 775) RED BLOOD CELL COUNT (BEAKER) (test code = 761) 3.81 M/ L 3.93-5.22 HEMOGLOBIN (BEAKER) (test code = 410) 11.6 GM/DL 11.2-15.7 HEMATOCRIT (BEAKER) (test code = 411) 34.5 % 34.1-44.9 MEAN CORPUSCULAR VOLUME (BEAKER) (test code = 90.6 fL 79 .4-94.8 753) MEAN CORPUSCULAR HEMOGLOBIN (BEAKER) (test code 30.4 pg 25.6-32.2 = 751) MEAN CORPUSCULAR HEMOGLOBIN CONC (BEAKER) (test 33.6 GM/DL 32.2-35.5 code = 752) RED CELL DISTRIBUTION WIDTH (BEAKER) (test code 12.6 % 11.7-14.4 = 412) PLATELET COUNT (BEAKER) (test code = 756) 354 K/CU MM 150-45 0 MEAN PLATELET VOLUME (BEAKER) (test code = 754) 10.4 fL 9.4-12.3 NUCLEATED RED BLOOD CELLS (BEAKER) (test code = 0 /100 WBC 0-0 413) NEUTROPHILS RELATIVE PERCENT (BEAKER) (test code 72 % = 429) LYMPHOCYTES RELATIVE PERCENT (BEAKER) (test code 20 % = 430) MONOCYTES RELATIVE PERCENT (BEAKER) (test code = 6 % 431) EOSINOPHILS RELATIVE PERCENT (BEAKER) (test code 1 % = 432) BASOPHILS RELATIVE PERCENT (BEAKER) (test code = 0 % 437) NEUTROPHILS ABSOLUTE COUNT (BEAKER) (test code = 8.21 K/ L 1.56-6.13 670) LYMPHOCYTES ABSOLUTE COUNT (BEAKER) (test code = 2.31 K/ L 1.18-3.74 414) MONOCYTES ABSOLUTE COUNT (BEAKER) (test code = 0.65 K/ L 0 .24-0.36 415) EOSINOPHILS ABSOLUTE COUNT (BEAKER) (test code = 0.11 K/ L 0.04-0.36 416) BASOPHILS ABSOLUTE COUNT (BEAKER) (test code = 0.05 K/ L 0 .01-0.08 417) IMMATURE GRANULOCYTES-RELATIVE PERCENT (BEAKER) 0 % 0-1 (test code = 2801) BASIC METABOLIC [id number] 05:51:00 Test Item Value Reference Range Comments SODIUM (BEAKER) (test 138 meq/L 136-145 code = 381) POTASSIUM (BEAKER) (test 3.8 meq/L 3.5-5.1 code = 379) CHLORIDE (BEAKER) (test 105 meq/L 98-107 code = 382) CO2 (BEAKER) (test code = 26 meq/L 22-29 355) BLOOD UREA NITROGEN 13 mg/dL 7-21 (BEAKER) (test code = 354) CREATININE (BEAKER) (test 1.66 mg/dL 0.57-1.25 code = 358) GLUCOSE RANDOM (BEAKER) 167 mg/dL 70-105 (test code = 652) CALCIUM (BEAKER) (test 8.9 mg/dL 8.4-10.2 code = 697) EGFR (BEAKER) (test code 34 mL/min/1.73 sq m EST IMATED GFR IS NOT = 1092) ACCURATE CREA TININE CLEARANCE IN PRE DICTING GLOMERULAR FILTR ATION RATE. ESTIMATED GFR IS NOT APPLICABLE F OR DIALYSIS PATIENT S. POCT-GLUCOSE [id number] 21:41:00 Test Item Value Reference Range Comments POC-GLUCOSE METER (BEAKER) 287 mg/dL 70-110 TESTE D AT [facility] [id number] (test code = 1538) [facility] 77 [id number] BASIC METABOLIC [id number] 12:35:00 Test Item Value Reference Range Comments SODIUM (BEAKER) (test 134 meq/L 136-145 code = 381) POTASSIUM (BEAKER) (test 4.6 meq/L 3.5-5.1 code = 379) CHLORIDE (BEAKER) (test 105 meq/L 98-107 code = 382) CO2 (BEAKER) (test code 23 meq/L 22-29 = 355) BLOOD UREA NITROGEN 14 mg/dL 7-21 (BEAKER) (test code = 354) CREATININE (BEAKER) 1.59 mg/dL 0.57-1.25 (test code = 358) GLUCOSE RANDOM (BEAKER) 266 mg/dL 70-105 (test code = 652) CALCIUM (BEAKER) (test 8.2 mg/dL 8.4-10.2 code = 697) EGFR (BEAKER) (test code 36 mL/min/1.73 sq m INS UFFICIENT CLINICAL DATA = 1092) TO CALCULATE EST IMATED GFR.This is an a ppended report. These r esults have been append ed to a previously final verified report. CBC W/PLT COUNT & AUTO [id number] 04:54:00 Test Item Value Reference Range Comments WHITE BLOOD CELL COUNT (BEAKER) (test code = 10.6 K/ L 3.5 -10.5 775) RED BLOOD CELL COUNT (BEAKER) (test code = 761) 3.55 M/ L 3.93-5.22 HEMOGLOBIN (BEAKER) (test code = 410) 10.8 GM/DL 11.2-15.7 HEMATOCRIT (BEAKER) (test code = 411) 32.6 % 34.1-44.9 MEAN CORPUSCULAR VOLUME (BEAKER) (test code = 91.8 fL 79 .4-94.8 753) MEAN CORPUSCULAR HEMOGLOBIN (BEAKER) (test code 30.4 pg 25.6-32.2 = 751) MEAN CORPUSCULAR HEMOGLOBIN CONC (BEAKER) (test 33.1 GM/DL 32.2-35.5 code = 752) RED CELL DISTRIBUTION WIDTH (BEAKER) (test code 12.3 % 11.7-14.4 = 412) PLATELET COUNT (BEAKER) (test code = 756) 311 K/CU MM 150-45 0 MEAN PLATELET VOLUME (BEAKER) (test code = 754) 10.2 fL 9.4-12.3 NUCLEATED RED BLOOD CELLS (BEAKER) (test code = 0 /100 WBC 0-0 413) NEUTROPHILS RELATIVE PERCENT (BEAKER) (test code 71 % = 429) LYMPHOCYTES RELATIVE PERCENT (BEAKER) (test code 20 % = 430) MONOCYTES RELATIVE PERCENT (BEAKER) (test code = 6 % 431) EOSINOPHILS RELATIVE PERCENT (BEAKER) (test code 3 % = 432) BASOPHILS RELATIVE PERCENT (BEAKER) (test code = 1 % 437) NEUTROPHILS ABSOLUTE COUNT (BEAKER) (test code = 7.51 K/ L 1.56-6.13 670) LYMPHOCYTES ABSOLUTE COUNT (BEAKER) (test code = 2.11 K/ L 1.18-3.74 414) MONOCYTES ABSOLUTE COUNT (BEAKER) (test code = 0.60 K/ L 0 .24-0.36 415) EOSINOPHILS ABSOLUTE COUNT (BEAKER) (test code = 0.27 K/ L 0.04-0.36 416) BASOPHILS ABSOLUTE COUNT (BEAKER) (test code = 0.07 K/ L 0 .01-0.08 417) IMMATURE GRANULOCYTES-RELATIVE PERCENT (BEAKER) 1 % 0-1 (test code = 2801) [id number] 20:17:00 Test Item Value Reference Range Comments RPR SCREEN (BEAKER) (test code = 420) Nonreactive Nonreactiv e POCT-GLUCOSE [id number] 18:09:00 Test Item Value Reference Range Comments POC-GLUCOSE METER (BEAKER) 215 mg/dL 70-110 TESTE D AT [facility] [address] [facility] (test code = 1538) [facility] 77 030 CBC W/PLT COUNT & AUTO [id number] 11:54:00 Test Item Value Reference Range Comments WHITE BLOOD CELL COUNT (BEAKER) (test code = 9.3 K/ L 3.5 -10.5 775) RED BLOOD CELL COUNT (BEAKER) (test code = 761) 3.45 M/ L 3.93-5.22 HEMOGLOBIN (BEAKER) (test code = 410) 10.7 GM/DL 11.2-15.7 HEMATOCRIT (BEAKER) (test code = 411) 32.0 % 34.1-44.9 MEAN CORPUSCULAR VOLUME (BEAKER) (test code = 92.8 fL 79 .4-94.8 753) MEAN CORPUSCULAR HEMOGLOBIN (BEAKER) (test code 31.0 pg 25.6-32.2 = 751) MEAN CORPUSCULAR HEMOGLOBIN CONC (BEAKER) (test 33.4 GM/DL 32.2-35.5 code = 752) RED CELL DISTRIBUTION WIDTH (BEAKER) (test code 12.7 % 11.7-14.4 = 412) PLATELET COUNT (BEAKER) (test code = 756) 302 K/CU MM 150-45 0 MEAN PLATELET VOLUME (BEAKER) (test code = 754) 10.0 fL 9.4-12.3 NUCLEATED RED BLOOD CELLS (BEAKER) (test code = 0 /100 WBC 0-0 413) NEUTROPHILS RELATIVE PERCENT (BEAKER) (test code 60 % = 429) LYMPHOCYTES RELATIVE PERCENT (BEAKER) (test code 29 % = 430) MONOCYTES RELATIVE PERCENT (BEAKER) (test code = 8 % 431) EOSINOPHILS RELATIVE PERCENT (BEAKER) (test code 3 % = 432) BASOPHILS RELATIVE PERCENT (BEAKER) (test code = 1 % 437) NEUTROPHILS ABSOLUTE COUNT (BEAKER) (test code = 5.55 K/ L 1.56-6.13 670) LYMPHOCYTES ABSOLUTE COUNT (BEAKER) (test code = 2.65 K/ L 1.18-3.74 414) MONOCYTES ABSOLUTE COUNT (BEAKER) (test code = 0.70 K/ L 0 .24-0.36 415) EOSINOPHILS ABSOLUTE COUNT (BEAKER) (test code = 0.31 K/ L 0.04-0.36 416) BASOPHILS ABSOLUTE COUNT (BEAKER) (test code = 0.05 K/ L 0 .01-0.08 417) IMMATURE GRANULOCYTES-RELATIVE PERCENT (BEAKER) 0 % 0-1 (test code = 2801) (MANUAL DIFFERENTIAL)2017-03-15 11:54:00 Test Item Value Reference Range Comments TOTAL COUNTED (BEAKER) (test code = 1351) WBC MORPHOLOGY (BEAKER) (test code = 487) Normal PLT MORPHOLOGY (BEAKER) (test code = 486) Normal RBC MORPHOLOGY (BEAKER) (test code = 762) Normal SEDIMENTATION [id number] 10:27:00 Test Item Value Reference Range Comments SEDIMENTATION RATE, ERYTHROCYTE (BEAKER) (test code 79 mm/HR 0-20 = 766) HEMOGLOBIN [id number] 09:33:00 Test Item Value Reference Range Comments HEMOGLOBIN A1C (BEAKER) (test code = 368) 9.8 % 4.3-6. 1 VITAMIN [id number] 09:14:00 Test Item Value Reference Range Comments VITAMIN B12 (BEAKER) (test code = 774) 1790 pg/mL 213-816 TSH/FREE T4 IF [id number] 09:14:00 Test Item Value Reference Range Comments THYROID STIMULATING HORMONE (BEAKER) (test code 1.08 uIU/mL 0.35-4.94 = 772) BASIC METABOLIC [id number] 08:52:00 Test Item Value Reference Range Comments SODIUM (BEAKER) (test 137 meq/L 136-145 code = 381) POTASSIUM (BEAKER) (test 4.7 meq/L 3.5-5.1 code = 379) CHLORIDE (BEAKER) (test 107 meq/L 98-107 code = 382) CO2 (BEAKER) (test code = 25 meq/L 22-29 355) BLOOD UREA NITROGEN 18 mg/dL 7-21 (BEAKER) (test code = 354) CREATININE (BEAKER) (test 1.77 mg/dL 0.57-1.25 code = 358) GLUCOSE RANDOM (BEAKER) 290 mg/dL 70-105 (test code = 652) CALCIUM (BEAKER) (test 8.0 mg/dL 8.4-10.2 code = 697) EGFR (BEAKER) (test code mL/min/1.73 sq m INSUF FICIENT CLINICAL DATA = 1092) TO CALCULATE EST IMATED GFR. FastingLIPID [id number] 08:51:00 Test Item Value Reference Range Comments TRIGLYCERIDES (BEAKER) (test code = 540) 90 mg/dL CHOLESTEROL (BEAKER) (test code = 631) 143 mg/dL HDL CHOLESTEROL (BEAKER) (test code = 976) 44 mg/dL LDL CHOLESTEROL CALCULATED (BEAKER) (test code = 81 mg/dL 633) Triglyceride Reference Range: Low Risk <150 Borderline 150-199 High Risk 200-499 Very High Risk >=500Cholesterol Reference Range: Low Risk <200 Borderline 200-239 High Risk >240HDL Cholesterol Reference Range: Low Risk >=60 High Risk <40LDL Cholesterol Reference Range: Optimal <100 Near Optimal 100-129 Borderline 130-159 High 160-189 Very High >=190 FastingHCG, QUANTITATIVE, [id number] 01:43:00 Test Item Value Reference Range Comments GONADOTROPIN, CHORIONIC (HCG) QUANT (BEAKER) (test < mIU/mL 0-10 code = 649) Non- Females: <10 mIU/mL Females: Gestation Age Reference Range(mIU/mL) 0.2-1 Week 5-50 1-2 Weeks 50-500 2-3 Weeks 100-5,000 3-4Weeks 500-10,000 4-5 Weeks 1,000-50,000 5-6 Weeks 10,000-100,000 6-8 Weeks 15,000-200,000 2-3 Months 10,000-100,000COMPREHENSIVE METABOLIC [id number] 21:57:00 Test Item Value Reference Range Comments TOTAL PROTEIN (BEAKER) 5.0 gm/dL 6.0-8.3 (test code = 770) ALBUMIN (BEAKER) (test 2.1 g/dL 3.5-5.0 code = 1145) ALKALINE PHOSPHATASE 106 U/L 40-150 (BEAKER) (test code = 346) BILIRUBIN TOTAL (BEAKER) 0.2 mg/dL 0.2-1.2 (test code = 377) SODIUM (BEAKER) (test 137 meq/L 136-145 code = 381) POTASSIUM (BEAKER) (test 4.7 meq/L 3.5-5.1 code = 379) CHLORIDE (BEAKER) (test 106 meq/L 98-107 code = 382) CO2 (BEAKER) (test code = 25 meq/L 22-29 355) BLOOD UREA NITROGEN 21 mg/dL 7-21 (BEAKER) (test code = 354) CREATININE (BEAKER) (test 2.00 mg/dL 0.57-1.25 code = 358) GLUCOSE RANDOM (BEAKER) 285 mg/dL 70-105 (test code = 652) CALCIUM (BEAKER) (test 7.9 mg/dL 8.4-10.2 code = 697) AST (SGOT) (BEAKER) (test 16 U/L 5-34 code = 353) ALT (SGPT) (BEAKER) (test 14 U/L 6-55 code = 347) EGFR (BEAKER) (test code mL/min/1.73 sq m INSUF FICIENT CLINICAL DATA = 1092) TO CALCULATE EST IMATED GFR. Unit CollectPOCT-GLUCOSE [id number] 21:50:00 Test Item Value Reference Range Comments POC-GLUCOSE METER (TAINA) 278 mg/dL 70-110 TESTE D AT [facility] [address] (test code = 1538) [facility] 72 293
[2019-12-22 22:39] LABS: Absolute Lymphocytes (CBC) 1.9 K/uL (0.7-4.9); Basophils % 0.6 % (0-1.3); Lymphocytes % 15.6 % (15.3-44.8); MPV 8.4 fL (7.6-11.3); RBC Red Blood Cell Count 3.14 M/uL (3.86-4.86)
--- NOTE | 2019-12-22 23:20 | RAD REPORT ---
EXAM DESCRIPTION: RAD - Chest Single View - 12/22/2019 10:47 pm CLINICAL HISTORY: SOB Chest pain. COMPARISON: Chest Single View dated 09/12/2019; Chest Single View dated 07/15/2019; Chest Single View dated 04/11/2019; Chest Single View dated 03/16/2019 FINDINGS: Portable technique limits examination quality. The lungs are grossly clear. The heart is normal in size. Left-sided venous catheter has tip in the r ight atrium, unchanged. IMPRESSION: No acute intrathoracic process suspected.
[2019-12-22 23:21] LABS: Protime INR 0.81
[2019-12-22 23:31] LABS: ALT/SGPT 33 U/L (12-78); AST/SGOT 10 U/L (15-37); Albumin 2.8 g/dL (3.4-5.0); Alkaline Phosphatase 172 U/L (45-117); BUN Blood Urea Nitrogen 65 mg/dL (7-18); Bicarbonate 24 mmol/L (21-32); Bilirubin Direct 0.1 mg/dL (0-0.2); Bilirubin Total 0.3 mg/dL (0.2-1.0); Glucose Level 97 mg/dL (74-106); Lipase 279 U/L (73-393); Potassium 4.3 mmol/L (3.5-5.1); Sodium Level 131 mmol/L (136-145); Troponin (Emerg Dept Use Only) < 0.02 ng/mL (0.0-0.045)
[2019-12-22] MEDS ORDERED: NA CHLORIDE 0.9% 1,000 ML IV SCH (23:45)
[2019-12-22] MEDS ORDERED: ACETAMINOPHEN 500 MG TAB PO PRN (23:48)
--- NOTE | 2019-12-22 23:50 | EDPHYS ---
Physician Documentation [facility] Name: Archana Woo Age: 44 yrs Sex: Female : 1975 Arrival Date: 12/22/2019 Time: 22:06 Bed 6 Private MD: ED Physician Russ Canales HPI: 12/21 23:08 This 44 yrs old Female presents to ER via EMS with complaints of S/S of rn Possible Stroke. 23:08 The patient's problem is reported as paresthesias, in left upper extremity, in left rn lower extremity, weakness, in the left upper extremity, in the left lower extremity. Onset: The symptoms/episode began/occurred 6 hour(s) ago. Duration: This was a single incident, The episode is continuous. The symptoms are alleviated by nothing. The symptoms are aggravated by nothing. Severity of symptoms: At their worst the symptoms were mild in the emergency department the symptoms are unchanged. The patient has experienced similar episodes in the past. The patient has not recently seen a physician. Reports called 911 for tingling left side of body and weakness, has had a stroke before and was concerned might be having another stroke. Denies trauma. missed dialysis today because was feeling sick last night with vomiting and diarrhea. Reports chronic episodic abd issues and vomiting/diarrhea since last stroke and now denies vomiting/diarrhea/abd pain. Also reports sob. Reports sensation and weakness is more than she has had from previous stroke. . 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 rv Historical: - Allergies: 22:23 No Known Allergies; ls4 - Home Meds: 22:23 calcitriol 0.25 mcg Oral cap 1 cap [Active]; calcitriol 0.25 mcg Oral cap 1 cap ls4 [Active]; docusate sodium 100 mg Oral cap 1 cap once daily [Active]; furosemide 80 mg Oral tab 1 tab 2 times per day [Active]; hydralazine 25 mg Oral tab 1 tab 4 times per day [Active]; Hydrocodone-Acetaminophen Oral [Active]; Lantus 100 unit/mL Sub-Q soln 100 unit/mL [Active]; - PMHx: 22:23 BLIND; CVA; Depression; Diabetes - NIDDM; GERD; Hyperlipidemia; Hypertension; left arm ls4 paralysis; neuropathy; THYROID CANCER; TIA; - Immunization history:: Adult Immunizations unknown. - Social history:: Smoking status: Patient reports the use of cigarette tobacco products, denies chronic smoking, but will smoke occasionally, Patient uses Patient/guardian denies using alcohol, street drugs, IV drugs. - Family history:: not pertinent. - Hospitalizations: : No recent hospitalization is reported. ROS: 23:08 Constitutional: Negative for fever, chills, and weight loss, Eyes: Negative for injury, rn pain, redness, and discharge, Cardiovascular: Negative for chest pain, palpitations, and edema, Respiratory: + sob, neg for cough Abdomen/GI: Negative for abdominal pain, nausea, vomiting, diarrhea, and constipation, MS/Extremity: Negative for injury and deformity, Skin: Negative for injury, rash, and discoloration, Neuro: Negative for headache, and seizure. Exam: 23:08 Radiologist reports: No acute findings rn 23:08 Constitutional: This is a well developed, well nourished patient who is awake, alert, and in no acute distress. Head/Face: Normocephalic, atraumatic. Eyes: Complete opacification right eye, left eye normal ENT: dry MM Cardiovascular: Regular rate and rhythm. No pulse deficits. Respiratory: Speaking full sentences. No increased work of breathing, no retractions or nasal flaring. Abdomen/GI: soft, non-tender, no masses MS/ Extremity: Pulses equal, no cyanosis. painful ROM left arm and both legs. Neuro: Awake and alert, GCS 15, oriented to person, place, time, and situation. No facial droop. Motor strength 4/5 LUE/LLE with drift, 5/5 strength RUE/RLE. Decreased sensation to soft touch LUE/LLE. 23:41 ECG was reviewed by the Attending Physician. rn Vital Signs: 22:12 BP 129 / 63; Pulse 71; Resp 14; Pulse Ox 100% on R/A; Pain 5/10; ls4 0508 00:02 BP 145 / 96; Pulse 66; Resp 14; Temp 97.9(O); Pulse Ox 97% on R/A; Pain 3/10; ls4 NIH Stroke Scale Scores: 12/21 22:32 NIHSS Score: 3 rn 22:40 NIHSS Score: 4 rv MDM: 22:25 Patient medically screened. rn 23:46 Differential diagnosis: CVA, metabolic disorder, ESRD, electrolyte disorder, rn dehydration. Data reviewed: vital signs, nurses notes, lab test result(s), EKG, radiologic studies, CT scan, and as a result, I will admit patient. Counseling: I had a detailed discussion with the patient and/or guardian regarding: the historical points, exam findings, and any diagnostic results supporting the discharge/admit diagnosis, lab results, radiology results, the need for further work-up and treatment in the hospital. Response to treatment: the patient's symptoms have mildly improved after treatment, and as a result, I will admit patient. Admission orders: after a detailed discussion of the patient's condition and case, the admit orders are written by me. ED course: Admitted to Dr. Chan for further care, neuro consult, and MRI in AM. Has had CVA in past, states symptoms worse today. Difficult to tell whether actually worse or secondary to pain she is having in joints. Has drift in LUE/LLE but grimaces in pain and moans during exam. CT head no acute findings. . 12/21 22:10 Order name: Basic Metabolic Panel; Complete Time: 23:35 lp1 12/21 22:10 Order name: CBC with Diff; Complete Time: 23:35 lp1 12/21 22:10 Order name: Protime (+inr); Complete Time: 23:35 lp1 12/21 22:10 Order name: Ptt, Activated; Complete Time: 23:35 lp1 12/21 22:25 Order name: Glucose, Ancillary Testing; Complete Time: 23:35 EDMS 12/21 22:32 Order name: Creatinine for Radiology; Complete Time: 23:35 rn 12/21 22:51 Order name: Liver (Hepatic) Function; Complete Time: 23:35 EDMS 12/21 22:51 Order name: Troponin (Emerg Dept Use Only); Complete Time: 23:35 EDMS 12/21 22:51 Order name: Lipase; Complete Time: 23:35 EDMS 12/21 23:56 Order name: CBC with Automated Diff EDMS 12/21 23:56 Order name: CBC with Automated Diff [facility] 12/21 23:56 Order name: Comprehensive Metabolic Panel [facility] 12/21 23:56 Order name: Comprehensive Metabolic Panel [facility] 12/21 23:56 Order name: Lipid Profile [facility] 12/21 23:56 Order name: Lipid Profile EDMS 12/21 23:56 Order name: Magnesium EDMS 12/21 23:56 Order name: Magnesium EDMS 12/21 23:56 Order name: Phosphorus EDMS 12/21 23:56 Order name: Phosphorus EDMS 12/21 23:56 Order name: T4,Total EDMS 12/21 23:56 Order name: T4,Total EDMS 12/21 23:56 Order name: Thyroid Stimulating Hormone EDMS 12/21 23:56 Order name: Thyroid Stimulating Hormone [facility] 12/21 22:10 Order name: CT Stroke Brain w/o Contrast lp1 12/21 22:10 Order name: Stroke CXR 1 View; Complete Time: 23:35 [facility] 12/21 22:10 Order name: EKG; Complete Time: 22:11 [facility] 12/21 22:10 Order name: Accucheck; Complete Time: 23:03 [facility] 12/21 22:10 Order name: Cardiac monitoring; Complete Time: 23:03 [facility] 12/21 22:10 Order name: EKG - Nurse/Tech; Complete Time: 23:03 [facility] 12/21 22:10 Order name: IV Saline Lock; Complete Time: 23:03 [facility] 12/21 22:10 Order name: Labs collected and sent; Complete Time: 23:03 [facility] 12/21 22:14 Order name: EKG; Complete Time: 22:14 cp 12/21 23:54 Order name: NPO [facility] 12/21 23:54 Order name: NPO [facility] 12/21 23:56 Order name: Physical Therapy Consult [facility] 12/21 23:56 Order name: Social Service Consult [facility] 12/21 23:56 Order name: NPO [facility] 12/21 23:56 Order name: Echo with Doppler [facility] 12/21 23:56 Order name: EKG Electrocardiogram [facility] 12/21 23:56 Order name: Troponin I [facility] 12/21 23:56 Order name: Troponin I [facility] 12/21 23:56 Order name: Troponin I [facility] 12/21 23:56 Order name: Urine Drug Screen [facility] 12/21 23:56 Order name: Urine Drug Screen [facility] 12/21 23:56 Order name: Brain Wo Cont EDMS 12/21 23:58 Order name: Speech Therapy Consult [facility] 12/21 23:59 Order name: Chest Pa And Lat (2 Views) EDMS 12/21 23:59 Order name: CONS Physician Consult [facility] 12/22 00:00 Order name: Magnesium [facility] 12/22 00:00 Order name: Vitamin B12 Level [facility] 12/22 00:00 Order name: Iron [facility] 12/22 00:00 Order name: NT PRO-BNP [facility] 12/21 22:10 Order name: NPO; Complete Time: 22:23 lp1 12/21 22:10 Order name: O2 Per Protocol; Complete Time: 22:23 lp1 12/21 22:10 Order name: O2 Sat Monitoring; Complete Time: 22:23 lp1 12/21 22:10 Order name: Stroke Swallow Screen; Complete Time: 22:23 lp1 12/21 22:14 Order name: Accucheck; Complete Time: 22:22 cp 12/21 22:14 Order name: Cardiac monitoring; Complete Time: 22:22 cp 12/21 22:14 Order name: EKG - Nurse/Tech; Complete Time: 22:22 cp 12/21 22:14 Order name: IV Saline Lock; Complete Time: 23:03 cp 12/21 22:14 Order name: Labs collected and sent; Complete Time: 23:03 cp 12/21 22:14 Order name: NPO; Complete Time: 23:03 cp 12/21 22:14 Order name: O2 Per Protocol; Complete Time: 23:03 cp 12/21 22:14 Order name: O2 Sat Monitoring; Complete Time: 23:03 cp 12/21 22:14 Order name: Stroke Swallow Screen; Complete Time: 23:03 cp EC:41 Rate is 73 beats/min. Rhythm is regular. QRS Harriet is Normal. OK interval is normal. QRS rn interval is normal. QT interval is normal. No Q waves. T waves are Normal. No ST changes noted. Clinical impression: Normal ECG. Interpreted by me. Reviewed by me. Administered Medications: 12/22 00:14 Drug: Aspirin 325 mg Route: PO; ls4 Point of Care Testing: Blood Glucose: 12/21 22:00 Blood Glucose: 107 mg/dL; rv Ranges: Critical Glucose Levels:Adult <50 mg/dl or >400 mg/dl <40 mg/dl or >180 mg/dl Disposition: 12/22/19 23:49 Hospitalization ordered by Everett Chan for Observation. Preliminary diagnosis are Weakness, Paresthesia of skin, Dyspnea, unspecified, End stage renal disease. - Bed requested for Telemetry/MedSurg (observation). - Status is Observation. ls4 - Condition is Stable. - Problem is new. - Symptoms have improved. NIH Stroke Scale - NIH Stroke Score Date: 12/22/2019 Time: 22:32 Total Score = 3 1a. Level of Consciousness (LOC) - 0(Alert) 1b. Level of Consciousness (LOC) (Year \T\ Age) - 0(Both) 1c. LOC Commands (Open \T\ Closes Eyes/Emergency Department Coordinator) - 0(Both) 2. Best Gaze (Lateral Gaze Paresis) - 0(Normal) 3. Visual Field Loss - 0(No visual loss) 4. Facial Palsy - 0(Normal) 5a. Left Arm: Motor (10-second hold) - 1(Drift) 5b. Right Arm: Motor (10-second hold) - 0(No drift) 6a. Left Leg: Motor (5-second hold - always test supine) - 1(Drift) 6b. Right Leg: Motor (5-second hold - always test supine) - 0(No drift) 7. Limb Ataxia (finger/nose \T\ heel/shetty - test with eyes open) - 0(Absent) 8. Sensory Loss (pinprick arms/legs/face) - 1(Mild to moderate loss) 9. Best Language: Aphasia (description/naming/reading) - 0(No aphasia) 10. Dysarthria (speech clarity - read or repeat words) - 0(Normal) 11. Extinction and Inattention (visual/tactile/auditory/spatial/personal) - 0(No abnormality) Initials: kita NIH Stroke Scale - NIH Stroke Score Date: 12/22/2019 Time: 22:40 Total Score = 4 1a. Level of Consciousness (LOC) - 0(Alert) 1b. Level of Consciousness (LOC) (Year \T\ Age) - 0(Both) 1c. LOC Commands (Open \T\ Closes Eyes/Emergency Department Coordinator) - 0(Both) 2. Best Gaze (Lateral Gaze Paresis) - 0(Normal) 3. Visual Field Loss - 0(No visual loss) 4. Facial Palsy - 0(Normal) 5a. Left Arm: Motor (10-second hold) - 0(No drift) 5b. Right Arm: Motor (10-second hold) - 0(No drift) 6a. Left Leg: Motor (5-second hold - always test supine) - 2(Drift, some effort against gravity) 6b. Right Leg: Motor (5-second hold - always test supine) - 2(Drift, some effort against gravity) 7. Limb Ataxia (finger/nose \T\ heel/shetty - test with eyes open) - 0(Absent) 8. Sensory Loss (pinprick arms/legs/face) - 0(Normal) 9. Best Language: Aphasia (description/naming/reading) - 0(No aphasia) 10. Dysarthria (speech clarity - read or repeat words) - 0(Normal) 11. Extinction and Inattention (visual/tactile/auditory/spatial/personal) - 0(No abnormality) Initials: rv Signatures: Dispatcher [employer] EDMS Maru Alcocer, RN RN Russ Chavez MD MD rn Pena, Laura, RN RN lp1 Zelalem Man PA PA cp Stewart, Lisa, RN RN ls4 Corrections: (The following items were deleted from the chart) 22:17 22:14 CT-STROKE BRAIN W/O CONTRAST+CT.RAD.BRZ ordered. [facility] EDNV 22:19 22:14 Chest Single View+RAD.RAD.BRZ ordered. [facility] EDNV 22:51 22:14 CBC+H.LAB.BRZ ordered. [facility] 22:51 22:14 PROTIME (+INR)+COAG.LAB.BRZ ordered. [facility] EDNV 22:51 22:14 PTT, ACTIVATED+COAG.LAB.BRZ ordered. [facility] EDNV 22:51 22:33 HEPATIC FUNCTION+C.LAB.BRZ ordered. [facility] 22:51 22:33 LIPASE+C.LAB.BRZ ordered. [facility] 22:52 22:14 TROPONIN (EMERG DEPT USE ONLY)+C.LAB.BRZ ordered. [facility] :52 22:14 BASIC METABOLIC PANEL+C.LAB.BRZ ordered. [facility] 12/22 00:25 05/07 23:49 Hospitalization Ordered by Everett Chan MD for Observation. radha Preliminary diagnosis is Weakness; Paresthesia of skin; Dyspnea, unspecified; End stage renal disease. Bed requested for Telemetry/MedSurg (observation). Status is Observation. Condition is Stable. Problem is new. Symptoms have improved. rn 12/22 00:46 00:25 12/22/2019 23:49 Hospitalization Ordered by Everett Chan MD for ls4 Observation. Preliminary diagnosis is Weakness; Paresthesia of skin; Dyspnea, unspecified; End stage renal disease. Bed requested for Telemetry/MedSurg (observation). Status is Observation. Condition is Stable. Problem is new. Symptoms have improved. dw
--- NOTE | 2019-12-22 23:50 | ER ---
Nurse's Notes [facility] Name: Archana Woo Age: 44 yrs Sex: Female : 1975 Arrival Date: 12/22/2019 Time: 22:06 Bed 6 Private MD: Diagnosis: Weakness;Paresthesia of skin;Dyspnea, unspecified;End stage renal disease Presentation: 12/21 22:08 An acute neurological deficit is present. The charge nurse has been notified. The ls4 patients blood glucose was checked before arriving to the hospital and was found to be normal. Initial Sepsis Screen: Does the patient meet any 2 criteria? No. Patient's initial sepsis screen is negative. Does the patient have a suspected source of infection? No. Patient's initial sepsis screen is negative. Risk Assessment: Do you want to hurt yourself or someone else? Patient reports no desire to harm self or others. Onset of symptoms was December 22, 2019 at 18:00. 22:08 Acuity: TARUN 2 ls4 22:12 Chief complaint: EMS states: PT CALLED EMS WITH LEFT ARM WEAKNESS AND PAIN, PT HAS LEFT ls4 SIDE FACIAL DROOP, SPEAKS CLEARLY. EXACT ONSET UNKNOWN. STATES 2 OR 3 HOURS. PT HAS HAD 3 STROKES IN THE PAST. PT COMPLAINS OF SHORTNESS OF BREATH. Coronavirus screen: Patient denies a cough. Patient reports shortness of breath or difficulty breathing. Patient denies measured and/or subjective temperature greater than 100.4F prior to today's visit. Patient denies travel on a cruise ship or to a country the [facility] currently lists as an affected area. Patient denies contact with known and/or suspected case of COVID-19. Ebola Screen: No symptoms or risks identified at this time. 22:12 Method Of Arrival: EMS: [facility] ls4 Triage Assessment: 22:26 The onset of the patients symptoms was more than three but less than six hours ago. ls4 General: Appears in no apparent distress. comfortable. Pain: Complains of pain in left arm Pain currently is 9 out of 10 on a pain scale. Neuro:. 23:11 The onset of the patients symptoms was at an unknown time. The onset of the patients rv symptoms was December 22, 2019 at 18:00. General: Behavior is calm, cooperative. Neuro: Reports numbness in left arm. 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: 23:13 LMP 12/16/2019 rv Stroke Activation: Symtpom onset >3 hours and < 6 hours Physician: Stroke Attending; Name: JORGE; Notified At: ; Arrived At: Physician: Chief Stroke Resident; Name: ; Notified At: ; Arrived At: Physician: Stroke Resident; Name: ; Notified At: ; Arrived At: Physician: ED Attending; Name: ; Notified At: ; Arrived At: Physician: ED Resident; Name: ; Notified At: ; Arrived At: Historical: - Allergies: 22:23 No Known Allergies; ls4 - Home Meds: 22:23 calcitriol 0.25 mcg Oral cap 1 cap [Active]; calcitriol 0.25 mcg Oral cap 1 cap ls4 [Active]; docusate sodium 100 mg Oral cap 1 cap once daily [Active]; furosemide 80 mg Oral tab 1 tab 2 times per day [Active]; hydralazine 25 mg Oral tab 1 tab 4 times per day [Active]; Hydrocodone-Acetaminophen Oral [Active]; Lantus 100 unit/mL Sub-Q soln 100 unit/mL [Active]; - PMHx: 22:23 BLIND; CVA; Depression; Diabetes - NIDDM; GERD; Hyperlipidemia; Hypertension; left arm ls4 paralysis; neuropathy; THYROID CANCER; TIA; - Immunization history:: Adult Immunizations unknown. - Social history:: Smoking status: Patient reports the use of cigarette tobacco products, denies chronic smoking, but will smoke occasionally, Patient uses Patient/guardian denies using alcohol, street drugs, IV drugs. - Family history:: not pertinent. - Hospitalizations: : No recent hospitalization is reported. Screenin:10 Abuse screen: Denies threats or abuse. Denies injuries from another. Nutritional rv screening: No deficits noted. Tuberculosis screening: No symptoms or risk factors identified. Fall Risk Fall in past 12 months (25 points). Secondary diagnosis (15 points) CVA, IV access (20 points). Ambulatory Aid- None/Bed Rest/Nurse Assist (0 pts). Gait- Impaired (20 pts.). Mental Status- Overestimates/Forgets Limitations (15 pts.). Total Lr Fall Scale indicates High Risk Score (45 or more points). Fall prevention measures have been instituted. Side Rails Up X 2 Frequent Obs/Assessments Occuring As available patient and family educated on Fall Prevention Program and Strategies. Assessment: 22:40 VAN Scoring: Arm Drift: Patients demonstrates NO arm weakness. Patient is VAN Negative. rv The patient has not been NPO before screening. The patient is alert, and able to follow commands. The patient does not exhibit slurred or garbled speech. The patient is not exhibiting difficulty speaking. The patient does not exhibit difficulty understanding words. The patient is able to swallow own secretions with no drooling or need for suction. Patient tolerated one teaspoon of water. No drooling, immediate coughing, gurgling, or clearing of the throat was noted. The patient tolerated 90mL of water. No drooling, immediate coughing, gurgling, or clearing of the throat was noted. The patient passed the bedside swallow screening. Oral medications may be given as ordered. Contact Physician for further diet orders. Provider notified of bedside swallow screening results: Russ Canales MD. 22:40 T-PA (Activase) Screening:. General: Appears comfortable, Behavior is calm, rv cooperative. Pain: Complains of pain in left arm. Neuro: Level of Consciousness is awake, alert, obeys commands, Oriented to person, place, time, situation. Cardiovascular: Patient's skin is warm and dry. Chest pain. Respiratory: Airway is patent Respiratory effort is even, unlabored, Breath sounds are clear bilaterally. Musculoskeletal: Range of motion: intact in all extremities, Swelling absent. 23:30 Reassessment: Patient appears in no apparent distress at this time. Patient and/or ls4 family updated on plan of care and expected duration. Pain level reassessed. Patient is alert, oriented x 3, equal unlabored respirations, skin warm/dry/pink. 12/22 00:41 Neuro: Weakness in left arm(s). Neuro: Full function in right arm(s). Neuro: Weakness rr5 in left in right leg(s) Speech is normal, Facial symmetry appears normal. 00:45 Reassessment: Patient appears in no apparent distress at this time. Patient and/or ls4 family updated on plan of care and expected duration. Pain level reassessed. Patient is alert, oriented x 3, equal unlabored respirations, skin warm/dry/pink. Patient states symptoms have improved. Vital Signs: 12/21 22:12 BP 129 / 63; Pulse 71; Resp 14; Pulse Ox 100% on R/A; Pain 5/10; ls4 12/22 00:02 BP 145 / 96; Pulse 66; Resp 14; Temp 97.9(O); Pulse Ox 97% on R/A; Pain 3/10; ls4 NIH Stroke Scale Scores: 12/21 22:32 NIHSS Score: 3 rn 22:40 NIHSS Score: 4 rv ED Course: 22:06 Patient arrived in ED. lp1 22:06 Russ Canales MD is Attending Physician. cp 22:18 Manoj Abreu RN is Primary Nurse. rv 22:21 Triage completed. ls4 22:21 CT Stroke Brain w/o Contrast In Process Unspecified. EDMS 22:47 Stroke CXR 1 View In Process Unspecified. EDMS 22:50 Inserted saline lock: 20 gauge in right forearm, using aseptic technique. Blood rv collected. 22:50 Initial lab(s) drawn, by me, sent to lab. rv 23:10 Patient has correct armband on for positive identification. Bed in low position. Call rv light in reach. Side rails up X2. plasterer helper on. Pulse ox on. NIBP on. 23:11 Patient placed in the treatment room, on a stretcher, Patient notified of wait time. rv 23:12 Warm blanket given. Pillow given. ls4 23:33 Notified ED physician of a critical lab result(s). Creatinine 9.44. lp1 23:49 Everett Chan MD is Hospitalizing Provider. rn 12/22 00:43 No provider procedures requiring assistance completed. Patient admitted, IV remains in ls4 place. Patient maintains SpO2 saturation greater than 95% on room air. Administered Medications: 00:14 Drug: Aspirin 325 mg Route: PO; ls4 Point of Care Testing: Blood Glucose: 12/21 22:00 Blood Glucose: 107 mg/dL; rv Ranges: Outcome: 23:49 Decision to Hospitalize by Provider. rn 12/22 00:44 Admitted to Med/surg accompanied by tech, room 229. ls4 Condition: stable Instructed on the need for admit, Demonstrated understanding of instructions. 00:46 Patient left the ED. ls4 NIH Stroke Scale - NIH Stroke Score Date: 12/22/2019 Time: 22:32 Total Score = 3 1a. Level of Consciousness (LOC) - 0(Alert) 1b. Level of Consciousness (LOC) (Year \T\ Age) - 0(Both) 1c. LOC Commands (Open \T\ Closes Eyes/Art Manager) - 0(Both) 2. Best Gaze (Lateral Gaze Paresis) - 0(Normal) 3. Visual Field Loss - 0(No visual loss) 4. Facial Palsy - 0(Normal) 5a. Left Arm: Motor (10-second hold) - 1(Drift) 5b. Right Arm: Motor (10-second hold) - 0(No drift) 6a. Left Leg: Motor (5-second hold - always test supine) - 1(Drift) 6b. Right Leg: Motor (5-second hold - always test supine) - 0(No drift) 7. Limb Ataxia (finger/nose \T\ heel/shetty - test with eyes open) - 0(Absent) 8. Sensory Loss (pinprick arms/legs/face) - 1(Mild to moderate loss) 9. Best Language: Aphasia (description/naming/reading) - 0(No aphasia) 10. Dysarthria (speech clarity - read or repeat words) - 0(Normal) 11. Extinction and Inattention (visual/tactile/auditory/spatial/personal) - 0(No abnormality) Initials: kita NIH Stroke Scale - NIH Stroke Score Date: 12/22/2019 Time: 22:40 Total Score = 4 1a. Level of Consciousness (LOC) - 0(Alert) 1b. Level of Consciousness (LOC) (Year \T\ Age) - 0(Both) 1c. LOC Commands (Open \T\ Closes Eyes/Art Manager) - 0(Both) 2. Best Gaze (Lateral Gaze Paresis) - 0(Normal) 3. Visual Field Loss - 0(No visual loss) 4. Facial Palsy - 0(Normal) 5a. Left Arm: Motor (10-second hold) - 0(No drift) 5b. Right Arm: Motor (10-second hold) - 0(No drift) 6a. Left Leg: Motor (5-second hold - always test supine) - 2(Drift, some effort against gravity) 6b. Right Leg: Motor (5-second hold - always test supine) - 2(Drift, some effort against gravity) 7. Limb Ataxia (finger/nose \T\ heel/shetty - test with eyes open) - 0(Absent) 8. Sensory Loss (pinprick arms/legs/face) - 0(Normal) 9. Best Language: Aphasia (description/naming/reading) - 0(No aphasia) 10. Dysarthria (speech clarity - read or repeat words) - 0(Normal) 11. Extinction and Inattention (visual/tactile/auditory/spatial/personal) - 0(No abnormality) Initials: rv Signatures: Dispatcher [employer] Russ Bruce MD MD rn Pena, Laura, RN RN lp1 Zelalem Man PA PA cp Vicente, Ronaldo, RN RN rv Lucrecia Alvarez RN RN ls4 Baldomero Valverde RN RN rr5
[2019-12-23] MEDS ORDERED: ASPIRIN 81 MG CHEWABLE TABLET ONE (00:18)
[2019-12-23] MEDS: HYDROMORPHONE HCL 1 MG/ML INJ IV PRN ×2 (05:42→15:18)
[2019-12-23 06:38] LABS: Barbiturates NEGATIVE (NEGATIVE); Benzodiazepines NEGATIVE (NEGATIVE); Cocaine NEGATIVE (NEGATIVE); METHAMPHETAM NEGATIVE (NEGATIVE); Methadone NEGATIVE (NEGATIVE); Opiates NEGATIVE (NEGATIVE); Phencyclidine NEGATIVE (NEGATIVE); THC Cannibis NEGATIVE (NEGATIVE)
[2019-12-23 06:53] LABS: Absolute Lymphocytes (CBC) 2.3 K/uL (0.7-4.9); Basophils % 0.6 % (0-1.3); Hematocrit 28.6 % (36.0-45.0); MPV 8.7 fL (7.6-11.3)
[2019-12-23 08:41] LABS: Albumin 2.7 g/dL (3.4-5.0); Bilirubin Total 0.3 mg/dL (0.2-1.0); Magnesium 1.9 mg/dL (1.8-2.4); Potassium 4.5 mmol/L (3.5-5.1); Protein, Total 6.6 g/dL (6.4-8.2); T4,Total 4.7 ug/dL (4.8-13.9); Thyroid Stimulating Hormone 1.76 uIU/mL (0.360-3.740)
[2019-12-23] MEDS ORDERED: GLUCAGON 1 MG/VIAL IM PRN ×2 (08:41→14:34)
[2019-12-23] MEDS ORDERED: D50W 25 GM/50 ML SYRINGE/VIAL IV PRN ×2 (08:41→14:34)
[2019-12-23 08:46] LABS: Phosphorus 9.1 mg/dL (2.5-4.9)
--- NOTE | 2019-12-23 08:46 | RAD REPORT ---
EXAM DESCRIPTION: RAD - Chest Pa And Lat (2 Views) - 12/23/2019 12:57 am CLINICAL HISTORY: Stroke Chest pain. COMPARISON: Chest Single View dated 12/22/2019; Chest Single View dated 09/12/2019; Chest Single View d ated 07/15/2019; Chest Single View dated 04/11/2019 FINDINGS: The lungs are clear. The heart is normal in size. Right-sided venous catheter has tip in t he right atrium. IMPRESSION: No acute finding suspected.
[2019-12-23] MEDS: CLOPIDOGREL 75 MG TABLET PO SCH ×2 (08:49→12:29)
[2019-12-23] MEDS: FOLIC ACID 1 MG TABLET PO SCH ×2 (08:49→12:28)
[2019-12-23] MEDS: ENOXAPARIN 30 MG/0.3 ML SQ SCH ×2 (09:00→12:28)
[2019-12-23] MEDS ORDERED: ASPIRIN EC 81 MG TAB PO SCH (09:00)
[2019-12-23] MEDS ORDERED: ALPRAZOLAM 0.25 MG TABLET PO PRN (09:17)
--- NOTE | 2019-12-23 09:27 | P.HP ---
Certification for Inpatient Patient admitted to: Inpatient With expected LOS: >2 Midnights Patient will require the following post-hospital care: None Practitioner: I am a practitioner with admitting privileges, knowledge of patient current condition, hospital course, and medical plan of care. Services: Services provided to patient in accordance with Admission requirements found in Title 42 Section 412.3 of the Code of Federal Regulations Patient History Date of Service: 12/23/19 Reason for admission: Left-sided pain and paresthesias along with left-sided weakness History of Present Illness: Patient is a 44-year-old female who has a history of stroke, end-stage renal disease, diabetic retinopathy with blindness who presents to the hospital with left-sided weakness and numbness and tingling along with left-sided pain. Patient has had 3 prior strokes. Patient's symptoms have been going on for the last 12 hr. Patient was brought into the ER for further assessment of a possible stroke. In the emergency room patient's workup included CT of the brain and diagnostic lab studies. CT of the head was negative. Labs show significant elevation and BUN and creatinine consistent with ESRD. Patient also has some slight hyponatremia. Patient be admitted to the hospital for further workup. Patient may be having TIAs. Patient had a carotid Doppler and an echo done about 6 months prior. These did not reveal any significant pathology except for internal jugular which looked to be occluded with thrombus. This may need to be repeated as patient is not on any anti coagulation. Patient may also need to get an MRI of the brain to further evaluate for a possible acute infarct. Allergies No Known Allergies Allergy (Verified 04/11/19 22:08) Home Medications: Aspirin 81 mg PO DAILY 12/23/19 Furosemide 1 tab PO DAILY 12/23/19 Gabapentin 100 mg PO DAILY 12/23/19 Insulin Glargine,Hum.rec.anlog [Toujeo Solostar] 20 unit SQ BEDTIME 12/23/19 Insulin Lispro [Humalog] 14 unit SQ TIDWM 12/23/19 Lisinopril [Zestril] 20 mg PO DAILY 12/23/19 Metoclopramide HCl [Reglan] 10 mg PO DAILY 12/23/19 Sertraline [Zoloft*] 100 mg PO DAILY 12/23/19 carvediloL [Carvedilol] 6.25 mg PO DAILY 12/23/19 Atorvastatin Calcium [Lipitor] 20 mg PO BEDTIME #30 tab 12/24/19 Sevelamer Carbonate [Renvela*] 2,400 mg PO TIDWM #90 tablet 12/24/19 Hydrocodone Bit/Acetaminophen [[place] 10-325 Tablet] 1 each PO Q12HP PRN #40 tablet 12/25/19 - Past Medical/Surgical History Has patient received pneumonia vaccine in the past: Yes Diabetic: Yes -: Legally blind, diabetic retinopathy -: Hypertension -: Depression with anxiety -: History of thyroid cancer -: Hyperlipidemia -: Tobacco abuse -: GERD -: Diabetic retinopathy and nephropathy -: CKD III -: hyperlipidemia -: CVA x3 -: Cholecystectomy -: Thyroidectomy -: Multiple eye surgeries -: Psychosocial/ Personal History: The patient is . She has 1 child. She is disabled. - Family History Father Medical History: Heart disease, Hypertension, Other (see notes) Notes: thyroid problems Mother Medical History: Diabetes, Kidney disease - Social History Smoking Status: Current every day smoker Alcohol use: Yes CD- Drugs: Yes Caffeine use: Yes Place of Residence: Home Review of Systems 10-point ROS is otherwise unremarkable Physical Examination - Vital Signs Temperature: 98.4 F Blood Pressure: 133/62 Pulse: 79 Respirations: 17 Pulse Ox (%): 99 - Physical Exam General: Alert, In no apparent distress, Oriented x3 HEENT: Atraumatic, Mucous membr. moist/pink, Other (Patient is blind in both eyes), EOMI, Sclerae nonicteric Neck: Supple, 2+ carotid pulse no bruit, No LAD, Without JVD or thyroid abnormality Respiratory: Clear to auscultation bilaterally, Normal air movement Cardiovascular: Regular rate/rhythm, Normal S1 S2, Systolic murmur Gastrointestinal: Normal bowel sounds, Soft and benign, Non-distended, No tenderness Musculoskeletal: No tenderness Integumentary: No rashes Neurological: Normal gait, Normal speech, Normal tone, Sensation intact, Cranial nerves 3-12 intact, Normal affect, Abnormal strength (Patient with generalized weakness) Lymphatics: No axilla or inguinal lymphadenopathy - Studies Laboratory Data (last 24 hrs) 12/22/19 22:35: Creatinine 9.44 H* 12/22/19 22:35: PT 9.6, INR 0.81, APTT 32.0 12/22/19 22:35: Sodium 131 L, Potassium 4.3, BUN 65 H, Creatinine 9.42 H*, Glucose 97, Total Bilirubin 0.3, AST 10 L, ALT 33, Alkaline Phosphatase 172 H, Lipase 279 12/22/19 22:32: Total Bilirubin Cancelled, AST Cancelled, ALT Cancelled, Alkaline Phosphatase Cancelled, Lipase Cancelled 12/22/19 22:21: WBC 12.1 H, Hgb 9.6 L, Hct 29.0 L, Plt Count 286 12/22/19 22:14: PT Cancelled, INR Cancelled, APTT Cancelled 12/22/19 22:14: WBC Cancelled, Hgb Cancelled, Hct Cancelled, Plt Count Cancelled 12/22/19 22:14: Sodium Cancelled, Potassium Cancelled, BUN Cancelled, Creatinine Cancelled, Glucose Cancelled 12/22/19 05:00: Troponin I Cancelled Assessment & Plan - Problems (Diagnosis) (1) ESRD (end stage renal disease) Current Visit: Yes Status: Acute (2) Acute CVA (cerebrovascular accident) Current Visit: Yes Status: Acute (3) TIA (transient ischemic attack) Onset Date: 08/06/17 Current Visit: No Status: Acute (4) COPD (chronic obstructive pulmonary disease) Onset Date: 03/03/17 Current Visit: No Status: Chronic Qualifiers: COPD type: chronic bronchitis Chronic bronchitis type: unspecified Qualified Code(s): J42 - Unspecified chronic bronchitis (5) Depression with anxiety Onset Date: 03/03/17 Current Visit: No Status: Chronic (6) Diabetes mellitus Onset Date: 03/03/17 Current Visit: No Status: Chronic (7) Diabetic gastroparesis Onset Date: 09/02/17 Current Visit: No Status: Chronic (8) Hyperlipidemia Onset Date: 03/03/17 Current Visit: No Status: Chronic Qualifiers: (9) Hypertension Onset Date: 03/03/17 Current Visit: No Status: Chronic Qualifiers: Hypertension type: essential hypertension Qualified Code(s): I10 - Essential (primary) hypertension - Plan Plan: 1. MRI of the brain 2. Carotid Doppler and echocardiogram 3. Neurology and Nephrology consultation 4. ESRD-hemodialysis per Nephrology 5. Monitor electrolytes 6. Physical therapy and speech therapy evaluation 7. Anti-platelet therapy and statin therapy 8. Anti coagulation 9. GI and DVT prophylaxis Discharge Plan: Home Plan to discharge in: Greater than 2 days - Advance Directives Does patient have a Living Will: No Does patient have a Durable POA for Healthcare: No - Code Status/Comfort Care Code Status Assessed: Yes Code Status: Full Code Critical Care: No Time Spent Managing PTS Care (In Minutes): 45
[2019-12-23 09:32] LABS: Magnesium 1.9 mg/dL (1.8-2.4)
[2019-12-23] MEDS: ONDANSETRON 4 MG/2 ML VIAL IV PRN (09:40)
--- NOTE | 2019-12-23 10:35 | EKG ---
Test Date: 2019-12-22 Test Time: 22:13:26 Core Placer: MANAN MEASUREMENT RESULTS: Intervals: Rate: 73 ID: [id number] QRSD: 80 QT: 432 QTc: 475 [place]: P: 63 ID: [id number] QRS: 16 T: 68 INTERPRETIVE STATEMENTS: Normal sinus rhythm Normal ECG Compared to ECG 09/12/2019 10:24:31 Prolonged QT interval no longer present Electronically Signed On 12-23-19 10:34:42 CDT by Elder Tejeda
--- NOTE | 2019-12-23 11:13 | RAD REPORT ---
EXAM DESCRIPTION: MRI - Brain Wo Cont - 12/23/2019 10:55 am CLINICAL HISTORY: Acute CVA Headache, drowsiness, CVA COMPARISON: Ct Stroke Brain Wo Cont dated 12/22/2019 TECHNIQUE: Multi-sequence, multiplanar MR imaging of the brain was performed without contrast. FINDINGS: No intracranial hemorrhage, hydrocephalus or extra-axial fluid collections.Moderate perive ntricular and deep white matter chronic microvascular ischemia seen. No edema or shift of midline str uctures. No findings to suspect brain mass. DWI is negative for acute CVA. Midline structures are normally formed. 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 Mastoid air cells and paranasal sinuses are clear. IMPRESSION: Negative for acute CVA or other acute intracranial abnormality.
[2019-12-23] MEDS: INSULIN -REGULAR HUMAN 50 UNIT/0.5 ML ML SQ SCH ×3 (11:30→21:00)
--- NOTE | 2019-12-23 14:28 | P.PN ---
Subjective Date of Service: 12/23/19 Primary Care Provider: Faiza Chief Complaint: Left-sided pain and paresthesias along with left-sided weakness <Steve Miller - Last Filed: 12/23/19 14:29> Date of Service: 12/23/19 <Alvino Arana - Last Filed: 12/23/19 15:24> Review of Systems General: Unremarkable Eyes: Unremarkable ENT: Unremarkable Respiratory: Unremarkable Cardiovascular: Unremarkable Gastrointestinal: Unremarkable Musculoskeletal: Unremarkable Integumentary: Unremarkable Neurological: Numbness (Numbness and pain reported to the left upper and lower extremity) Lymphatics: Unremarkable <Steve Miller - Last Filed: 12/23/19 14:29> Physical Examination - Vital Signs Temperature: 97.8 F Blood Pressure: 111/61 Pulse: 73 Respirations: 17 Pulse Ox (%): 100 - Physical Exam General: Alert, In no apparent distress, Oriented x3 HEENT: Atraumatic, Normocephalic Neck: Supple Respiratory: Clear to auscultation bilaterally, Normal air movement Cardiovascular: No edema Capillary refill: <2 Seconds Gastrointestinal: Normal bowel sounds, Soft and benign Musculoskeletal: No contractures, No erythema Integumentary: No breakdown Neurological: Normal speech, Normal tone - Studies Laboratory Data (last 24 hrs) 12/22/19 22:35: Creatinine 9.44 H* 12/22/19 22:35: PT 9.6, INR 0.81, APTT 32.0 12/22/19 22:35: Sodium 131 L, Potassium 4.3, BUN 65 H, Creatinine 9.42 H*, Glucose 97, Total Bilirubin 0.3, AST 10 L, ALT 33, Alkaline Phosphatase 172 H, Lipase 279 12/22/19 22:32: Total Bilirubin Cancelled, AST Cancelled, ALT Cancelled, Alkaline Phosphatase Cancelled, Lipase Cancelled 12/22/19 22:21: WBC 12.1 H, Hgb 9.6 L, Hct 29.0 L, Plt Count 286 12/22/19 22:14: PT Cancelled, INR Cancelled, APTT Cancelled 12/22/19 22:14: WBC Cancelled, Hgb Cancelled, Hct Cancelled, Plt Count Cancelled 12/22/19 22:14: Sodium Cancelled, Potassium Cancelled, BUN Cancelled, Creatinine Cancelled, Glucose Cancelled 12/22/19 05:00: Troponin I Cancelled <Steve Miller - Last Filed: 12/23/19 14:29> - Studies Laboratory Data (last 24 hrs) 12/22/19 22:35: Creatinine 9.44 H* 12/22/19 22:35: PT 9.6, INR 0.81, APTT 32.0 12/22/19 22:35: Sodium 131 L, Potassium 4.3, BUN 65 H, Creatinine 9.42 H*, Glucose 97, Total Bilirubin 0.3, AST 10 L, ALT 33, Alkaline Phosphatase 172 H, Lipase 279 12/22/19 22:32: Total Bilirubin Cancelled, AST Cancelled, ALT Cancelled, Alk oh Phosphatase Cancelled, Lipase Cancelled 12/22/19 22:21: WBC 12.1 H, Hgb 9.6 L, Hct 29.0 L, Plt Count 286 12/22/19 22:14: PT Cancelled, INR Cancelled, APTT Cancelled 12/22/19 22:14: WBC Cancelled, Hgb Cancelled, Hct Cancelled, Plt Count Cancelled 12/22/19 22:14: Sodium Cancelled, Potassium Cancelled, BUN Cancelled, Creatinine Cancelled, Glucose Cancelled 12/22/19 05:00: Troponin I Cancelled <Alvino Arana - Last Filed: 12/23/19 15:24> Assessment & Plan Discharge Plan: Home Plan to discharge in: 24 Hours - Code Status/Comfort Care Code Status Assessed: Yes (Patient is full code) Physician Review Additional Text: Assessment Left-sided paresthesia and pain possibly secondary to ischemic CVA or TIA End stage renal disease on hemodialysis Diabetes mellitus type 2 on insulin therapy Diabetic gastroparesis Hyperlipidemia Hypertension Plan Left-sided paresthesia and pain possibly secondary to ischemic CVA or TIA- neurology was consulted on this case, patient will have an echocardiogram, carotid Doppler, speech eval, occupational physical therapy eval. MRI did not show any acute stroke findings. Will await evaluations and input from neurology to determine further plan of care. Anticipate patient will be able to be discharged in the next 24-48 hr. Will continue with Plavix, aspirin, folic acid and Lovenox at this time. End stage renal disease on hemodialysis- patient with end-stage renal disease on hemodialysis, had reportedly missed her Thursday's session of hemodialysis. Nephrology has been consulted on this case and patient will be receiving dialysis today. Diabetes mellitus type 2 on insulin therapy- a.c. HS Accu-Cheks will be obtained, patient we placed on a sliding scale insulin therapy. A1c was obtained in elevated at 12.2. Home insulin therapy will need to be adjusted at discharge. Diabetic gastroparesis- patient tolerating her diet at this time, will continue to monitor during this hospitalization. Hyperlipidemia- will obtain and continue patient's home medication. Hypertension- will obtain and continue patient's home medication. Time Spent Managing Pts Care (In Minutes): 55 <Steve Miller - Last Filed: 12/23/19 14:29> Physician Review Additional Text: Patient seen examined with nurse practitioner Steve Miller. Agree with plan of care. Patient stable at this time. Await MRI, echo and carotid Doppler. Will continue with speech/occupational and physical therapy. Patient may require skilled placement. Will continue monitor closely. 1 eat better diabetic control. Will adjust medication. <Alvino Arana - Last Filed: 12/23/19 15:24>
--- NOTE | 2019-12-23 14:28 | RAD REPORT ---
EXAM DESCRIPTION: CT HEAD WO CONTRAST CLINICAL HISTORY: Left sided weakness TECHNIQUE: Contiguous axial CT images obtained through the brain without IV contrast. Coronal and sa gittal reformatted images were provided. This exam was performed according to our departmental dose-optimization program, which includes autom ated exposure control, adjustment of the mA and/or kV according to patient size and/or use of iterati ve reconstruction technique. COMPARISON: None available for comparison FINDINGS: Brain: Mild bilateral periventricular and subcortical white matter hypodensity. No focal m ass effect. Coffman-white matter differentiation is within normal limits. No hemorrhage. Ventricles: No ventriculomegaly or midline shift. Extra-axial spaces: No extra-axial collection or hemorrhage. Paranasal sinuses and mastoid air cells: Well-aerated Vessels: There is atherosclerotic disease of the internal carotid arteries bilaterally. Bones: Unremarkable Soft tissues: Bilateral phthisis bulbi. IMPRESSION: 1. No acute hemorrhage, focal mass or large territory infarction. 2. Mild bilateral white matter changes. Differential considerations include but are not limited to a ge advanced microvascular angiopathy, demyelinating disease, vasculitis and Lyme disease. 3. Other findings as above. Electronically signed by: Alfonso Stokes MD 12/22/2019 10:30 PM CDT Due to temporary technical issues with the PACS/Fluency reporting system, reports are being signed by the in house radiologist as a courtesy to ensure prompt reporting. The interpreting radiologist is f ully responsible for the content of the report.
--- NOTE | 2019-12-23 15:05 | P.CNS ---
Date of Consult: 12/23/19 Reason for Consult: ESRD , fluid managememnt Primary Care Provider: Faiza Chief Complaint: Left-sided pain and paresthesias along with left-sided weakness History of Present Illness: A 44-year-old female who has a history of ESRD on HD MWF , stroke, diabetic legaly blind and HTN Pt presented for Lt sided weakness pt with HX of CVA X3, had lt sided wekaness , started ~12 hrs before admissiom Pt denied chest pain, palpitation, nausea or vomiting Physical exam general: AAOX3, NAD , blind Neck; Supple, No elevated JVD hear: RRR, normal S1,2 no murmur or rub Chest: CTAB, no rlaes or wheezes Abdomen: Soft , Nt Extremities: trace End-stage renal disease on HD MWF HD tomorrow with low BFR renal dose meds Lt sided wekaness possibly new CVA head CT negative ASA and statin PT/OT Anemia of chronic disease no need for epogen HTN Controlled DM as per PCP metabolic bone disease will start on renvela mild hyponatremia will orrect with HD total time spent 45 min Allergies No Known Allergies Allergy (Verified 04/11/19 22:08) Home Medications: Aspirin 81 mg PO DAILY 12/23/19 Furosemide 1 tab PO DAILY 12/23/19 Gabapentin 100 mg PO DAILY 12/23/19 Insulin Glargine,Hum.rec.anlog [Toujeo Solostar] 20 unit SQ BEDTIME 12/23/19 Insulin Lispro [Humalog] 14 unit SQ TIDWM 12/23/19 Lisinopril [Zestril] 20 mg PO DAILY 12/23/19 Metoclopramide HCl [Reglan] 10 mg PO DAILY 12/23/19 Sertraline [Zoloft] 100 mg PO DAILY 12/23/19 carvediloL [Carvedilol] 6.25 mg PO DAILY 12/23/19 - Past Medical/Surgical History Diabetic: Yes -: Legally blind, diabetic retinopathy -: Hypertension -: Depression with anxiety -: History of thyroid cancer -: Hyperlipidemia -: Tobacco abuse -: GERD -: Diabetic retinopathy and nephropathy -: CKD III -: hyperlipidemia -: CVA x3 -: Cholecystectomy -: Thyroidectomy -: Multiple eye surgeries -: Psychosocial/ Personal History: The patient is . She has 1 child. She is disabled. - Family History Father Medical History: Heart disease, Hypertension, Other (see notes) Notes: thyroid problems Mother Medical History: Diabetes, Kidney disease - Social History Smoking Status: Current some day smoker Alcohol use: Yes CD- Drugs: Yes Caffeine use: Yes Place of Residence: Home Physical Examination Temp Pulse Resp BP Pulse Ox 97.8 F 73 17 111/61 100 12/23/19 14:32 12/23/19 14:32 12/23/19 14:32 12/23/19 14:32 12/23/19 14:32 Laboratory Data (last 24 hrs) 12/22/19 22:35: Creatinine 9.44 H* 12/22/19 22:35: PT 9.6, INR 0.81, APTT 32.0 12/22/19 22:35: Sodium 131 L, Potassium 4.3, BUN 65 H, Creatinine 9.42 H*, Glucose 97, Total Bilirubin 0.3, AST 10 L, ALT 33, Alkaline Phosphatase 172 H, Lipase 279 12/22/19 22:32: Total Bilirubin Cancelled, AST Cancelled, ALT Cancelled, Alkaline Phosphatase Cancelled, Lipase Cancelled 12/22/19 22:21: WBC 12.1 H, Hgb 9.6 L, Hct 29.0 L, Plt Count 286 12/22/19 22:14: PT Cancelled, INR Cancelled, APTT Cancelled 12/22/19 22:14: WBC Cancelled, Hgb Cancelled, Hct Cancelled, Plt Count Cancelled 12/22/19 22:14: Sodium Cancelled, Potassium Cancelled, BUN Cancelled, Creatinine Cancelled, Glucose Cancelled 12/22/19 05:00: Troponin I Cancelled
[2019-12-23] MEDS: SEVELAMER CARBONATE 800 MG TABLET PO SCH (17:00)
[2019-12-23] MEDS ORDERED: TRAMADOL HCL 50 MG TAB PO PRN (18:35)
--- NOTE | 2019-12-23 19:28 | RAD REPORT ---
EXAM DESCRIPTION: USCarotid Artery Bilateral12/23/2019 7:05 pm CLINICAL HISTORY: tia COMPARISON: 2018 FINDINGS: The velocity of the right internal carotid artery equals 53 cm/sec. The right ICA/CCA rati o .5 The velocity of the left internal carotid artery equals 89 cm/sec. The left ICA/CCA ratio .9 Mild plaque is present within the carotid arteries. The vertebral arteries demonstrate antegrade flow IMPRESSION: Mild plaque within the carotid arteries without evidence of a hemodynamically significan t stenosis NASCET criteria used. Mild 0-49% stenosis Moderate 50-69% stenosis Severe 70-99% stenosis
[2019-12-23] MEDS: HYDROCODONE/APAP 7.5/325 MG TAB PO PRN (21:18)
[2019-12-23] MEDS: ATORVASTATIN 20 MG TAB PO SCH (21:18)
[2019-12-23] MEDS: INSULIN GLARGINE 100 UNITS/ML SQ SCH (21:21)
[2019-12-24] MEDS: HYDROCODONE/APAP 7.5/325 MG TAB PO PRN ×2 (04:47→21:31)
[2019-12-24 05:32] LABS: Barbiturates NEGATIVE (NEGATIVE); Benzodiazepines NEGATIVE (NEGATIVE); Cocaine NEGATIVE (NEGATIVE); METHAMPHETAM NEGATIVE (NEGATIVE); Methadone NEGATIVE (NEGATIVE); Opiates NEGATIVE (NEGATIVE); Phencyclidine NEGATIVE (NEGATIVE); THC Cannibis NEGATIVE (NEGATIVE)
[2019-12-24] MEDS: INSULIN -REGULAR HUMAN 50 UNIT/0.5 ML ML SQ SCH ×4 (07:30→21:32)
[2019-12-24] MEDS: SEVELAMER CARBONATE 800 MG TABLET PO SCH ×2 (08:00→11:49)
[2019-12-24] MEDS: ONDANSETRON 4 MG/2 ML VIAL IV PRN ×2 (08:09→14:21)
[2019-12-24] MEDS: ENOXAPARIN 30 MG/0.3 ML SQ SCH (08:09)
[2019-12-24] MEDS: ASPIRIN 81 MG CHEWABLE TABLET PO SCH (08:12)
[2019-12-24] MEDS: SERTRALINE HCL 100 MG TAB PO SCH (08:12)
[2019-12-24] MEDS: FOLIC ACID 1 MG TABLET PO SCH (08:12)
[2019-12-24] MEDS: GABAPENTIN 100 MG CAP PO SCH (08:12)
[2019-12-24] MEDS: CLOPIDOGREL 75 MG TABLET PO SCH (08:12)
[2019-12-24] MEDS: carvediloL 6.25 MG TAB PO SCH (08:13)
[2019-12-24] MEDS: lisinopriL 20 MG TAB PO SCH (08:13)
[2019-12-24] MEDS: FUROSEMIDE 40 MG TABLET PO SCH (08:13)
[2019-12-24] MEDS ORDERED: HOME MED 1 EA UNK (Furosemide [Furosemide] 1 TAB) PO SCH (09:00)
--- NOTE | 2019-12-24 13:55 | PN ---
Date of Progress Note: 12/24/2019 History: Patient was admitted for CVA. Patient missed dialysis multiple times, poor compliant. Stephanie ma was dialyzed yesterday. Physical Examination: Vital Signs: Blood pressure 155/69, pulse of 83, afebrile. Chest: Clear to auscultation. Heart: S1-S2, regular. Abdomen: Soft, nontender. Extremities: Left AV fistula. No edema. Neuro: Alert. Weakness on the right side. Laboratory Data: WBC 11.6, H and H 9.5/28.6. Sodium 131, potassium 4.5, bicarb 21, BUN 63, creatini ne 9, calcium 8.2 phos for 9.1. Assessment And Plan: 1.End-stage renal disease, hyponatremia with uremic symptoms status post dialysis. We will do anoth er session of dialysis today and we will monitor the patient. 2.Hypertension. Controlled optimal. Continue current medication. 3.Hyponatremia dilutional secondary to renal failure, going to be corrected with dialysis. 4.cerebrovascular accident. Continue supportive care. Patient cleared from the renal standpoint fo r discharge planning after dialysis. DEBBIE Voice ID: [id number] Report ID: [id number]
[2019-12-24] MEDS ORDERED: BISACODYL E.C. 5 MG TAB PO ONE (20:03)
[2019-12-24] MEDS: ATORVASTATIN 20 MG TAB PO SCH (21:31)
[2019-12-24] MEDS: INSULIN GLARGINE 100 UNITS/ML SQ SCH (21:33)
[2019-12-25] MEDS: FUROSEMIDE 40 MG TABLET PO SCH (08:06)
[2019-12-25] MEDS: ASPIRIN 81 MG CHEWABLE TABLET PO SCH (08:06)
[2019-12-25] MEDS: INSULIN -REGULAR HUMAN 50 UNIT/0.5 ML ML SQ SCH ×4 (08:06→22:26)
[2019-12-25] MEDS: FOLIC ACID 1 MG TABLET PO SCH (08:06)
[2019-12-25] MEDS: carvediloL 6.25 MG TAB PO SCH (08:06)
[2019-12-25] MEDS: SERTRALINE HCL 100 MG TAB PO SCH (08:07)
[2019-12-25] MEDS: lisinopriL 20 MG TAB PO SCH (08:07)
[2019-12-25] MEDS: ENOXAPARIN 30 MG/0.3 ML SQ SCH (08:07)
[2019-12-25] MEDS: CLOPIDOGREL 75 MG TABLET PO SCH (08:07)
[2019-12-25] MEDS: GABAPENTIN 100 MG CAP PO SCH (08:07)
--- NOTE | 2019-12-25 08:45 | P.PN ---
Subjective Date of Service: 12/24/19 Patient clinically doing well with no new complaints. Symptoms have improved. Workup is been unremarkable. Anticipate discharge home after hemodialysis. Review of Systems 10-point ROS is otherwise unremarkable Physical Examination - Vital Signs Temperature: 98.4 F Blood Pressure: 133/62 Pulse: 79 Respirations: 17 Pulse Ox (%): 99 - Physical Exam General: Alert, In no apparent distress, Oriented x3 Respiratory: Clear to auscultation bilaterally, Normal air movement Cardiovascular: Regular rate/rhythm, Normal S1 S2, No murmurs Gastrointestinal: Normal bowel sounds, Soft and benign, Non-distended, No tenderness Musculoskeletal: No clubbing, No swelling, No tenderness Neurological: Normal strength at 5/5 x4 extr - Studies Medications List Reviewed: Yes Assessment & Plan - Problems (Diagnosis) (1) ESRD (end stage renal disease) Current Visit: Yes Status: Acute (2) Acute CVA (cerebrovascular accident) Current Visit: Yes Status: Acute (3) TIA (transient ischemic attack) Onset Date: 08/06/17 Current Visit: No Status: Acute (4) COPD (chronic obstructive pulmonary disease) Onset Date: 03/03/17 Current Visit: No Status: Chronic Qualifiers: COPD type: chronic bronchitis Chronic bronchitis type: unspecified Qualified Code(s): J42 - Unspecified chronic bronchitis (5) Depression with anxiety Onset Date: 03/03/17 Current Visit: No Status: Chronic (6) Diabetes mellitus Onset Date: 03/03/17 Current Visit: No Status: Chronic (7) Diabetic gastroparesis Onset Date: 09/02/17 Current Visit: No Status: Chronic (8) Hyperlipidemia Onset Date: 03/03/17 Current Visit: No Status: Chronic Qualifiers: (9) Hypertension Onset Date: 03/03/17 Current Visit: No Status: Chronic Qualifiers: Hypertension type: essential hypertension Qualified Code(s): I10 - Essential (primary) hypertension - Plan Plan: continue with current plan of care as mentioned below 1. MRI of the brain does not show an acute infarct 2. Carotid Doppler and echocardiogram with no acute abnormalities 3. Neurology and Nephrology consultation appreciated 4. ESRD-hemodialysis per Nephrology; after hemodialysis possible discharge home later today 5. Electrolytes are stable 6. Physical therapy and speech therapy evaluation appreciated 7. Anti-platelet therapy and statin therapy; continue at discharge 8.GI and DVT prophylaxis Discharge Plan: Home Plan to discharge in: 24 Hours - Advance Directives Does patient have a Living Will: No Does patient have a Durable POA for Healthcare: No - Code Status/Comfort Care Code Status: Full Code Critical Care: No Time Spent Managing PTS Care (In Minutes): 40
--- NOTE | 2019-12-25 08:47 | P.DS ---
Discharge Date: 12/25/19 Primary Care Provider: Faiza Disposition: ROUTINE DISCHARGE Discharge Condition: GOOD Reason for Admission: Left-sided pain and paresthesias along with left-sided weakness - Problems (1) ESRD (end stage renal disease) Current Visit: Yes Status: Acute (2) Acute CVA (cerebrovascular accident) Current Visit: Yes Status: Acute (3) TIA (transient ischemic attack) Onset Date: 08/06/17 Current Visit: No Status: Acute (4) COPD (chronic obstructive pulmonary disease) Onset Date: 03/03/17 Current Visit: No Status: Chronic Qualifiers: COPD type: chronic bronchitis Chronic bronchitis type: unspecified Qualified Code(s): J42 - Unspecified chronic bronchitis (5) Depression with anxiety Onset Date: 03/03/17 Current Visit: No Status: Chronic (6) Diabetes mellitus Onset Date: 03/03/17 Current Visit: No Status: Chronic (7) Diabetic gastroparesis Onset Date: 09/02/17 Current Visit: No Status: Chronic (8) Hyperlipidemia Onset Date: 03/03/17 Current Visit: No Status: Chronic Qualifiers: (9) Hypertension Onset Date: 03/03/17 Current Visit: No Status: Chronic Qualifiers: Hypertension type: essential hypertension Qualified Code(s): I10 - Essential (primary) hypertension Brief History of Present Illness: Patient is a 44-year-old female who has a history of stroke, end-stage renal disease, diabetic retinopathy with blindness who presents to the hospital with left-sided weakness and numbness and tingling along with left-sided pain. Patient has had 3 prior strokes. Patient's symptoms have been going on for the last 12 hr. Patient was brought into the ER for further assessment of a possible stroke. In the emergency room patient's workup included CT of the brain and diagnostic lab studies. CT of the head was negative. Labs show significant elevation and BUN and creatinine consistent with ESRD. Patient also has some slight hyponatremia. Patient be admitted to the hospital for further workup. Patient may be having TIAs. Patient had a carotid Doppler and an echo done about 6 months prior. These did not reveal any significant pathology except for internal jugular which looked to be occluded with thrombus. This may need to be repeated as patient is not on any anti coagulation. Patient may also need to get an MRI of the brain to further evaluate for a possible acute infarct. Hospital Course: Patient has done well during hospital stay. Discharge was held yesterday ; however, patient is doing better and is willing to go home today. At this time, will go ahead and discharge patient with outpatient follow-up. Vital Signs/Physical Exam: Temp Pulse Resp BP Pulse Ox 98.4 F 79 17 133/62 99 12/25/19 08:45 12/25/19 08:45 12/25/19 08:45 12/25/19 08:45 12/25/19 08:45 General: Alert, In no apparent distress, Oriented x3 Laboratory Data at Discharge: WBC 11.6 K/uL (4.3-10.9) H 12/23/19 05:37 Hgb 9.5 g/dL (12.0-15.0) L 12/23/19 05:37 Hct 28.6 % (36.0-45.0) L 12/23/19 05:37 Plt Count 274 K/uL (152-406) 12/23/19 05:37 PT 9.6 SECONDS (9.5-12.5) 12/22/19 22:35 INR 0.81 12/22/19 22:35 APTT 32.0 SECONDS (24.3-36.9) 12/22/19 22:35 Sodium 131 mmol/L (136-145) L 12/23/19 05:37 Potassium 4.5 mmol/L (3.5-5.1) 12/23/19 05:37 BUN 63 mg/dL (7-18) H 12/23/19 05:37 Creatinine 9.44 mg/dL (0.55-1.3) H* 12/23/19 05:37 Glucose 126 mg/dL (74-106) H 12/23/19 05:37 Phosphorus 9.1 mg/dL (2.5-4.9) H* 12/23/19 05:37 Magnesium 1.9 mg/dL (1.8-2.4) 12/23/19 05:37 Magnesium 1.9 mg/dL (1.8-2.4) 12/23/19 05:37 Total Bilirubin 0.3 mg/dL (0.2-1.0) 12/23/19 05:37 AST 10 U/L (15-37) L 12/23/19 05:37 ALT 31 U/L (12-78) 12/23/19 05:37 Alkaline Phosphatase 126 U/L (45-117) H 12/23/19 05:37 Troponin I < 0.02 ng/mL (0.0-0.045) 12/23/19 05:37 Triglycerides 126 mg/dL (<150) 12/23/19 05:37 Cholesterol 188 mg/dL (<200) 12/23/19 05:37 HDL Cholesterol 54 mg/dL (40-60) 12/23/19 05:37 Cholesterol/HDL Ratio 3.48 12/23/19 05:37 Lipase 279 U/L (73-393) 12/22/19 22:35 Home Medications: Aspirin 81 mg PO DAILY 12/23/19 Furosemide 1 tab PO DAILY 12/23/19 Gabapentin 100 mg PO DAILY 12/23/19 Insulin Glargine,Hum.rec.anlog [Toujeo Solostar] 20 unit SQ BEDTIME 12/23/19 Insulin Lispro [Humalog] 14 unit SQ TIDWM 12/23/19 Lisinopril [Zestril] 20 mg PO DAILY 12/23/19 Metoclopramide HCl [Reglan] 10 mg PO DAILY 12/23/19 Sertraline [Zoloft*] 100 mg PO DAILY 12/23/19 carvediloL [Carvedilol] 6.25 mg PO DAILY 12/23/19 Atorvastatin Calcium [Lipitor] 20 mg PO BEDTIME #30 tab 12/24/19 Sevelamer Carbonate [Renvela*] 2,400 mg PO TIDWM #90 tablet 12/24/19 Hydrocodone Bit/Acetaminophen [[place] 10-325 Tablet] 1 each PO Q12HP PRN #40 tablet 12/25/19 New Medications: Atorvastatin Calcium [Lipitor] 20 mg PO BEDTIME #30 tab Hydrocodone Bit/Acetaminophen [[place] 10-325 Tablet] 1 each PO Q12HP PRN #40 tablet PRN Reason: Pain Scale 5-7 (Moderate) Sevelamer Carbonate [Renvela*] 2,400 mg PO TIDWM #90 tablet Patient Discharge Instructions: OK TO DC IV AND DC HOME. FOLLOW-UP WITH PRIMARY CARE PROVIDER IN 1-2 WEEKS. FOLLOW-UP WITH NEPHROLOGY IN 1-2 DAYS FOR HEMODIALYSIS. RETURN TO THE ER IF symptoms worsen. CALL or TEXT DR. SARMIENTO AT [phone] IF ANY QUESTIONS REGARDING HOSPITAL STAY. PLEASE CALL THE FLOOR AT [phone] IF ANY MEDICATION OR NURSING QUESTIONS. Diet: Renal Activity: Fall precautions Followup: Nael Beckman MD [ACTIVE - CAN ADMIT] - (Call to make an appointment) Time spent managing pt's care (in minutes): 35
[2019-12-25] MEDS: ONDANSETRON 4 MG/2 ML VIAL IV PRN (10:13)
--- NOTE | 2019-12-25 12:12 | RAD REPORT ---
EXAM DESCRIPTION: RAD - Abdomen 1 View (KUB) - 12/25/2019 11:54 am CLINICAL HISTORY: constipation Pain COMPARISON: Abdomen Pelvis Wo Contrast dated 07/29/2019 FINDINGS: The bowel gas pattern is non-obstructive. No evidence of free air or pneumatosis. Calcific ations projecting over the pelvis likely represent fibroids. No significant bony findings. Cholecystectomy clips. Mild fecal retention in the colon. IMPRESSION: Mild fecal retention.
[2019-12-25] MEDS ORDERED: carvediloL 6.25 MG TAB PO SCH (13:00)
--- NOTE | 2019-12-25 13:29 | P.PN ---
Subjective Date of Service: 12/25/19 Primary Care Provider: Faiza Chief Complaint: Left-sided pain and paresthesias along with left-sided weakness Subjective: Other (Patient with dizziness and some nausea. Blood pressure was low.) Physical Examination - Vital Signs Temperature: 98.4 F Blood Pressure: 133/62 Pulse: 79 Respirations: 17 Pulse Ox (%): 99 - Physical Exam General: Alert, Cooperative HEENT: Atraumatic Neck: Supple Respiratory: Clear to auscultation bilaterally, Normal air movement Cardiovascular: Normal pulses, Regular rate/rhythm Gastrointestinal: Normal bowel sounds, No rebound, No guarding Neurological: Normal speech, Abnormal strength (Residual right-sided weakness) - Studies Medications List Reviewed: Yes Assessment & Plan Discharge Plan: Home Plan to discharge in: 24 Hours Physician Review Additional Text: Assessment Left-sided paresthesia and pain possibly secondary to ischemic CVA or TIA End stage renal disease on hemodialysis Nausea, dizziness with hypotension Diabetes mellitus type 2 on insulin therapy Diabetic gastroparesis Hyperlipidemia Hypertension Plan Left-sided paresthesia and pain possibly secondary to diabetic neuropathy: Discharge held today due to nausea common dizziness and low blood pressure. Case discussed with nephrology. Patient given IV fluid bolus. Nephrology has adjusted blood pressure medication. Lisinopril to be discontinued. Carvedilol to be decreased. Lasix also to be discontinued. Will continue to monitor closely. Cardiac enzymes unremarkable. If blood pressure more stable then will consider discharge tomorrow. End stage renal disease on hemodialysis: Case discussed with nephrology. Patient to get bolus of fluid. Blood pressure medication adjusted. Will continue to monitor closely. Dizziness, nausea with hypotension: Continue with above recommendation. Cardiac enzymes unremarkable. Case discussed in detail with nephrology. Diabetes mellitus type 2 on insulin therapy: Continue Accu-Cheks and sliding scale. Will adjust insulin accordingly. Diabetic gastroparesis: Continue with medication. Will monitor closely. Hyperlipidemia: Continue medication Hypertension: Medication has been adjusted by Nephrology. Lasix, lisinopril discontinued. Carvedilol decreased. Constipation: Will provide stool softener Time Spent Managing Pts Care (In Minutes): 55
[2019-12-25] MEDS ORDERED: LACTULOSE 20 GM/30 ML UCUP PO PRN (14:33)
[2019-12-25] MEDS: DOCUSATE NA 100 MG CAP PO SCH (14:52)
[2019-12-25] MEDS: HEPARIN 5000 UNIT/ML 1 ML VIAL SQ SCH ×2 (14:52→22:26)
--- NOTE | 2019-12-25 17:02 | PN ---
Date of Progress Note: 12/25/2019 Subjective: Patient feeling dizzy, nausea. No chest pain. Physical Examination: Vital Signs: Blood pressure 74/50, pulse of 88. General: Patient has constipation. Chest: Clear to auscultation. Heart: S1, S2 regular. Abdomen: Soft, nontender. Extremities: No edema. Laboratory Data: WBC 11.6, H and H 9.5/28.6, platelets 274. Sodium 131, potassium 4.5, bicarb 21, B UN 63, creatinine 9.4, calcium 8.2, phosphorus 9.1. Medications: Current medications the patient on include: 1.Plavix. 2.Atorvastatin. 3.Carvedilol. 4.Lisinopril. 5.Gabapentin. 6.Zoloft. 7.Lasix. 8.Folic acid. 9.Dulcolax. 10.Tramadol. Assessment And Plan: 1.End-stage renal disease. We will arrange for dialysis tomorrow. 2.Hypertension, currently hypotension. We will hold Lasix, hold lisinopril, decrease carvedilol to 3.25 with holding parameter. I am going to get the patient off 250 of normal saline and we will foll ow up the patient. We will send for cardiac enzyme and EKG and we will follow up. 3.Diabetes, as by primary. CASSIE/KERI Voice ID: [id number] Report ID: [id number]
[2019-12-25] MEDS ORDERED: BISACODYL 10 MG RECTAL SUPP PR ONE (21:25)
[2019-12-25] MEDS: ATORVASTATIN 20 MG TAB PO SCH (21:44)
[2019-12-25] MEDS: INSULIN GLARGINE 100 UNITS/ML SQ SCH (21:45)
[2019-12-25] MEDS ORDERED: MAGNESIUM CITRATE 300 ML BOT PO SCH (22:00)
[2019-12-26] MEDS: ONDANSETRON 4 MG/2 ML VIAL IV PRN ×3 (00:09→17:28)
[2019-12-26 00:32] VITALS: BMI 23.5
[2019-12-26] MEDS: INSULIN -REGULAR HUMAN 50 UNIT/0.5 ML ML SQ SCH ×3 (07:30→16:32)
[2019-12-26] MEDS ORDERED: carvediloL 3.125 MG TAB PO SCH (09:00)
[2019-12-26] MEDS: DOCUSATE NA 100 MG CAP PO SCH (09:00)
[2019-12-26] MEDS: ASPIRIN 81 MG CHEWABLE TABLET PO SCH (09:49)
[2019-12-26] MEDS: HEPARIN 5000 UNIT/ML 1 ML VIAL SQ SCH ×2 (09:49→20:42)
[2019-12-26] MEDS: CLOPIDOGREL 75 MG TABLET PO SCH (09:49)
[2019-12-26] MEDS: SERTRALINE HCL 100 MG TAB PO SCH (09:49)
[2019-12-26] MEDS: GABAPENTIN 100 MG CAP PO SCH (09:49)
[2019-12-26] MEDS: FOLIC ACID 1 MG TABLET PO SCH (09:49)
[2019-12-26 10:40] VITALS: O2SAT 96
--- NOTE | 2019-12-26 11:15 | P.DS ---
Admission Date: 12/23/19 Discharge Date: 12/26/19 Primary Care Provider: Faiza Disposition: DC HOME/HOME HEALTH CARE Discharge Condition: GOOD Reason for Admission: Left-sided pain and paresthesias along with left-sided weakness Consultations: Nephrology-Dr. Beckman Procedures: Brain MRI: FINDINGS: No intracranial hemorrhage, hydrocephalus or extra-axial fluid collections.Moderate periventricular and deep white matter chronic microvascular ischemia seen. No edema or shift of midline structures. No findings to suspect brain mass. DWI is negative for acute CVA. Midline structures are normally formed. 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 Mastoid air cells and paranasal sinuses are clear. IMPRESSION: Negative for acute CVA or other acute intracranial abnormality. Carotid Doppler: FINDINGS: The velocity of the right internal carotid artery equals 53 cm/sec. The right ICA/CCA ratio .5 The velocity of the left internal carotid artery equals 89 cm/sec. The left ICA/CCA ratio .9 Mild plaque is present within the carotid arteries. The vertebral arteries demonstrate antegrade flow IMPRESSION: Mild plaque within the carotid arteries without evidence of a hemodynamically significant stenosis KUB: FINDINGS: The bowel gas pattern is non-obstructive. No evidence of free air or pneumatosis. Calcifications projecting over the pelvis likely represent fibroids. No significant bony findings. Cholecystectomy clips. Mild fecal retention in the colon. IMPRESSION: Mild fecal retention. CXR: FINDINGS: The lungs are clear. The heart is normal in size. Right-sided venous catheter has tip in the right atrium. IMPRESSION: No acute finding suspected. Medical Problem List: Left-sided paresthesia and pain likely related to diabetic neuropathy but com plicated with history of CVA/TIA End stage renal disease on hemodialysis Nausea, dizziness with hypotension due to medication Diabetes mellitus type 2 on insulin therapy Diabetic gastroparesis Hyperlipidemia Hypertension Diabetic neuropathy Depression Brief History of Present Illness: 44-year-old female with history of hypertension, end-stage renal d isease on hemodialysis, and prior CVA. Patient presented with left sided weakness and paresthesias to the left side primarily to the lower extremity. Patient was admitted for further evaluation. Hospital Course: Patient presented with left-sided paresthesia and pain with mild weakness to the lower extremity. Patient was evaluated further. MRI brain showed no acute st roke. Carotid Doppler unremarkable. Case discussed with nephrology and neurology. Neurology felt this was likely TIA versus diabetic neuropathy pain. Patient was placed on aspirin, Plavix and Lipitor. At discharge patient has done well. Her discharge was held yesterday due to low blood pressure and some nausea. Nephrology has adjusted her blood pressure medication. Blood pressure now stable. At discharge patient will continue with aspirin 81 mg daily, Plavix 75 mg daily, Lipitor 40 mg daily, and folic acid 1 mg daily. Recommend follow up with neurology in 2-4 weeks to follow up this hospitalization. Home health and physical therapy will be arranged prior to discharge. Patient with end-stage renal disease on hemodialysis and hypertension. Patient did receive dialysis during the course of her stay. As mentioned above her blood pressure medication has been adjusted. She was taken off lisinopril and Lasix. Her carvedilol was decreased. At discharge patient will continue only with carvedilol 3.125 mg daily. Recommend to monitor blood pressure daily. Recommend to maintain blood pressure less 150/80. Further adjustment in medication can be done by nephrology as an outpatient if blood pressure remains elevated. Patient will also continue with Renvela. Patient with diabetes mellitus type 2 insulin dependent. This has remained stable. At discharge she will continue with her current insulin regimen-Toujeo 20 units subcu daily and Humalog sliding scale. Recommend to maintain blood sugar less than 140 fasting and less than 200 after meals. Further adjustment can be done by her PCP. Patient with diabetic gastroparesis. Patient will continue with her current medication-Reglan 10 mg daily. Recommend follow up with GI as an outpatient to further address and monitor. Patient with hyperlipidemia. As recommended above patient will continue with Lipitor 40 mg daily. Patient with some constipation. Patient will continue with stool softener as an outpatient. Patient with diabetic neuropathy. Patient will continue with Neurontin 100 mg daily. Further adjustment can be done by her PCP. Patient with depression. At discharge she will continue with Zoloft 100 mg daily. Further adjustment can be done by her PCP. Vital Signs/Physical Exam: Temp Pulse Resp BP Pulse Ox 98 F 75 18 131/63 96 12/26/19 04:00 12/26/19 09:49 12/26/19 04:00 12/26/19 09:49 12/26/19 04:00 General: Alert, In no apparent distress, Cooperative HEENT: Atraumatic Neck: Supple Respiratory: Clear to auscultation bilaterally, Normal air movement Cardiovascular: Normal pulses, Regular rate/rhythm Gastrointestinal: Normal bowel sounds, Non-distended, No masses, No rebound, No guarding Musculoskeletal: Other (Numbness to the left lower extremity pain improved) Neurological: Normal speech, Abnormal strength (As above) Laboratory Data at Discharge: WBC 11.6 K/uL (4.3-10.9) H 12/23/19 05:37 Hgb 9.5 g/dL (12.0-15.0) L 12/23/19 05:37 Hct 28.6 % (36.0-45.0) L 12/23/19 05:37 Plt Count 274 K/uL (152-406) 12/23/19 05:37 PT 9.6 SECONDS (9.5-12.5) 12/22/19 22:35 INR 0.81 12/22/19 22:35 APTT 32.0 SECONDS (24.3-36.9) 12/22/19 22:35 Sodium 131 mmol/L (136-145) L 12/23/19 05:37 Potassium 4.5 mmol/L (3.5-5.1) 12/23/19 05:37 BUN 63 mg/dL (7-18) H 12/23/19 05:37 Creatinine 9.44 mg/dL (0.55-1.3) H* 12/23/19 05:37 Glucose 126 mg/dL (74-106) H 12/23/19 05:37 Phosphorus 9.1 mg/dL (2.5-4.9) H* 12/23/19 05:37 Magnesium 1.9 mg/dL (1.8-2.4) 12/23/19 05:37 Magnesium 1.9 mg/dL (1.8-2.4) 12/23/19 05:37 Total Bilirubin 0.3 mg/dL (0.2-1.0) 12/23/19 05:37 AST 10 U/L (15-37) L 12/23/19 05:37 ALT 31 U/L (12-78) 12/23/19 05:37 Alkaline Phosphatase 126 U/L (45-117) H 12/23/19 05:37 Troponin I < 0.02 ng/mL (0.0-0.045) 12/25/19 12:48 Triglycerides 126 mg/dL (<150) 12/23/19 05:37 Cholesterol 188 mg/dL (<200) 12/23/19 05:37 HDL Cholesterol 54 mg/dL (40-60) 12/23/19 05:37 Cholesterol/HDL Ratio 3.48 12/23/19 05:37 Lipase 279 U/L (73-393) 12/22/19 22:35 Home Medications: Aspirin 81 mg PO DAILY 12/23/19 Gabapentin 100 mg PO DAILY 12/23/19 Insulin Glargine,Hum.rec.anlog [Toujeo Solostar] 20 unit SQ BEDTIME 12/23/19 Insulin Lispro [Humalog] 14 unit SQ TIDWM 12/23/19 Metoclopramide HCl [Reglan] 10 mg PO DAILY 12/23/19 Sertraline [Zoloft*] 100 mg PO DAILY 12/23/19 Sevelamer Carbonate [Renvela*] 2,400 mg PO TIDWM #90 tablet 12/24/19 Hydrocodone Bit/Acetaminophen [[place] 10-325 Tablet] 1 each PO Q12HP PRN #40 tablet 12/25/19 Atorvastatin Calcium [Lipitor] 40 mg PO DAILY #30 tablet 12/26/19 Clopidogrel Bisulfate [Plavix*] 75 mg PO DAILY #30 tablet 12/26/19 Docusate [Colace Cap*] 100 mg PO DAILY PRN #30 cap 12/26/19 Folic Acid 1 mg PO DAILY #30 tablet 12/26/19 carvediloL [Coreg*] 3.125 mg PO DAILY #30 tab 12/26/19 New Medications: Docusate [Colace Cap*] 100 mg PO DAILY PRN #30 cap PRN Reason: Constipation carvediloL [Coreg*] 3.125 mg PO DAILY #30 tab Folic Acid 1 mg PO DAILY #30 tablet Atorvastatin Calcium [Lipitor] 40 mg PO DAILY #30 tablet Hydrocodone Bit/Acetaminophen [[place] 10-325 Tablet] 1 each PO Q12HP PRN #40 tablet PRN Reason: Pain Scale 5-7 (Moderate) Clopidogrel Bisulfate [Plavix*] 75 mg PO DAILY #30 tablet Sevelamer Carbonate [Renvela*] 2,400 mg PO TIDWM #90 tablet Patient Discharge Instructions: 1. Recommend follow up with PCP in 1 week to follow up this hospitalization. 2. Patient presented with left-sided paresthesia and pain with mild weakness to the lower extremity. Patient was evaluated further. MRI brain showed no acute stroke. Carotid Doppler unremarkable. Case discussed with nephrology and neurology. Neurology felt this was likely TIA versus diabetic neuropathy pain. Patient was placed on aspirin, Plavix and Lipitor. At discharge patient has done well. Her discharge was held yesterday due to low blood pressure and some nausea. Nephrology has adjusted her blood pressure medication. Blood pressure now stable. At discharge patient will continue with aspirin 81 mg daily, Plavix 75 mg daily, Lipitor 40 mg daily, and folic acid 1 mg daily. Recommend follow up with neurology in 2-4 weeks to follow up this hospitalization. Home health and physical therapy will be arranged prior to discharge. 3. Patient with end- stage renal disease on hemodialysis and hypertension. Patient did receive dialysis during the course of her stay. As mentioned above her blood pressure medication has been adjusted. She was taken off lisinopril and Lasix. Her carvedilol was decreased. At discharge patient will continue only with carvedilol 3.125 mg daily. Recommend to monitor blood pressure daily. Recommend to maintain blood pressure less 150/80. Further adjustment in medication can be done by nephrology as an outpatient if blood pressure remains elevated. Patient will also continue with Renvela. 4. Patient with diabetes mellitus type 2 insulin dependent. This has remained stable. At discharge she will continue with her current insulin regimen-Toujeo 20 units subcu daily and Humalog sliding scale. Recommend to maintain blood sugar less than 140 fasting and less than 200 after meals. Further adjustment can be done by her PCP. 5. Patient with diabetic gastroparesis. Patient will continue with her current medication-Reglan 10 mg daily. Recommend follow up with GI as an outpatient to further address and monitor. 6. Patient with hyperlipidemia. As recommended above patient will continue with Lipitor 40 mg daily. 7. Patient with some constipation. Patient will continue with stool softener as an outpatient. 8. Patient with diabetic neuropathy. Patient will continue with Neurontin 100 mg daily. Further adjustment can be done by her PCP. 9. Patient with depression. At discharge she will continue with Zoloft 100 mg daily. Further adjustment can be done by her PCP. Diet: Renal Activity: Fall precautions Followup: Nael Beckman MD [ACTIVE - CAN ADMIT] - (Call to make an appointment) Ana Kendall NP [ALLIED HEALTH PROFESSIONAL] - 1-2 Weeks (PCP- call to schedule an appointment ) Time spent managing pt's care (in minutes): 55
[2019-12-26 17:31] VITALS: TEMP 97.7
[2019-12-26] MEDS: INSULIN GLARGINE 100 UNITS/ML SQ SCH (20:42)
[2019-12-26] MEDS: ATORVASTATIN 20 MG TAB PO SCH (20:42)
--- NOTE | 2019-12-26 21:41 | CON ---
Reason For Consultation: Possible stroke. History Of Present Illness: Ms. Woo is a 44-year-old patient with multiple medical problems includ ing end-stage renal disease, on hemodialysis; diabetes with diabetic retinopathy and blindness along with dyslipidemia who also reportedly had multiple strokes in the past with good recovery. The [facility] admission came in on December 22 with left-sided pain, paresthesias, and weakness. Her head CT scan in the emergency room was unremarkable for any acute ischemic or hemorrhagic change. Subsequent brain MRI, stroke protocol to rule out the presence of a stroke. When I saw the patient, she was resting i n bed and reporting some pain in the left arm, more out of proportion than any weakness or numbness. She was able to lift the left arm up and had good sensation in the left arm. When pressed by us to what is the major problem, she said more pain and weakness. She also had no significant asymmetry in the face on the left than right side showing equal movement when speaking or smiling. Both lower ex tremity also, no significant difference [id number]. She did have a stocking-glove loss in light to uch and temperature. It should be noted that the patient was receiving Dilaudid for pain. This was discussed with Dr. Arana and he noted that pain medication should stop and the patient may be treate d more appropriately with other medications besides narcotics. Past Medical History: Thyroid cancer. Allergies: NO KNOWN DRUG ALLERGIES. Medications: Calcitriol 0.25 mcg daily, docusate sodium 100 mg daily, furosemide 80 mg twice daily, hydralazine 25 mg up to 4 times daily, [place] daily, Lantus units subcutaneously as per pro tocol. Family History: Noncontributory. Social History: She does use tobacco products occasionally, but no alcohol or IV drug use. Review of Systems: She reports pain in the left shoulder and arm and some in the left lower extremity. No vision bilate rally. Physical Examination: Neurologic: Cranial nerves remarkable for no significant vision noted and not able to count by her f ingers. Otherwise, cranial nerves show no clear focal deficits, left to right. Motor, she does seem to have 4/5 strength in the left upper and lower extremity compared to the right side, but when pres sed more giveaway given due to pain in the left upper extremity. Sensory, stocking-glove loss to lig ht touch and temperature. Reflexes depressed in upper and lower extremities. Coordination intact in upper and lower extremities. Patient will be ambulated with physical therapy. Laboratory/imaging Studies: Complete blood count shows white blood cell count 11.6, hemoglobin 9.5, platelets 274. INR 0.81. Chemistries showed glucose ranged from 120 to 383, sodium 131, potassium 4 .5, chloride 96, carbon dioxide 21, BUN 63, creatinine 9.44. She is on hemodialysis. AST 10, ALT 31 , alkaline phosphatase 126, HDL cholesterol 54, LDL cholesterol 109, total cholesterol 188. B12 975. TSH 1.76. C4 low at 4.7. Urine drug screen was negative. Her carotid artery ultrasound showed mi ld plaque without evidence of hemodynamically significant stenosis. Electrocardiogram shows normal s inus rhythm and is a normal study. Chest x-ray showed no acute findings. Her KUB showed mild fecal retention. Assessment: Ms. Woo is a 44-year-old patient with multiple medical problems including end-stage re nal disease, on hemodialysis; diabetes mellitus; hypertension; reportedly stroke with some left-sided residual deficits; however, does not clear at all that patient has had a stroke. She does have give -way in the left lower extremity reportedly due to her pain and MRI of the brain is negative for any acute ischemic or hemorrhagic stroke and no chronic stroke for that matter. She seems to request spe cific pain medications and perhaps that may be a source for the patient's hospitalization. Plan: I would recommend the patient be switched off narcotics. Medications such as gabapentin may b e used and tramadol. She may of course continue with hemodialysis and management of her comorbid conditions per primary team on discharge. She may follow up in Dr. Alex's clinic only if needed. KATHIE/KERI Voice ID: [id number] Report ID: [id number]
[2019-12-26 21:53] VITALS: BP 121/60
--- NOTE | 2019-12-27 00:24 | PN ---
Date of Progress Note: 12/26/2019 Chief Complaint: End-stage renal disease, on dialysis. History: Patient is undergoing dialysis 3 times per week. Today, she received dialysis for metaboli c clearance and to obtain negative fluid balance to control fluid overload and treat hypervolemia. Review of Systems: Denies fever, chills. Physical Examination: Lungs: Clear to auscultation bilaterally. Heart: S1, S2. Abdomen: Soft, benign. Extremities: No edema. Impression/plan: 1.End-stage renal disease. Continue dialysis 3 times per week. 2.Hypertension. Blood pressure controlled. Monitor blood pressure. Adjust medication. 3.Renal osteodystrophy. Continue renal diet and binders. 4.Anemia, chronic kidney disease. Hemoglobin level satisfactory. Continue treatment with [place] accor ding to hemoglobin level. 5.Patient was admitted to the hospital for left-sided paresthesia and pain likely related to diabeti c neuropathy complicated with history of CVA, TIA. Patient was evaluated by primary team. MRI of th e brain did not show intracranial hemorrhage. There was no hydrocephalus. It was negative acute CVA and acute intracranial abnormalities. Carotid Doppler showed mild plaque in the carotid artery with out evidence of hemodynamically significant stenosis. 6.Diabetes mellitus. Patient will continue insulin. 7.History of peripheral neuropathy. History of transient ischemic attack. Patient will follow up with Neurologist. 8.End-stage renal disease. Next dialysis on Thursday. TAMIKA/KERI Voice ID: [id number] Report ID: [id number]
--- NOTE | 2019-12-27 08:24 | ECHO ---
HEIGHT: 5 ft 4 in WEIGHT: 136 lb 14.4 oz DATE OF STUDY: 12/26/[address]: Alvino Arana DO 2-DIMENSIONAL: YES M.MODE: YES DOPPLER: YES COLOR FLOW: YES TDS: YES PORTABLE: NO DEFINITY: NO BUBBLE STUDY: NO DIAGNOSIS: STROKE CARDIAC HISTORY: CATHERIZATION: NO SURGERY: NO PROSTHETIC VALVE: NO PACEMAKER: NO MEASUREMENTS (cm) DIASTOLIC (NORMALS) SYSTOLIC (NORMALS) IVSd 0.9 (0.6-1.2) LA Diam 3.0 (1.9-4.0) LVEF 51% LVIDd 3.0 (3.5-5.7) LVIDs 2.2 (2.0-3.5) %FS 25% LVPWd 0.8 (0.6-1.2) Ao Diam 2.2 (2.0-3.7) 2 DIMENSIONAL ASSESSMENT: RIGHT ATRIUM: NORMAL LEFT ATRIUM: NORMAL RIGHT VENTRICLE: NORMAL LEFT VENTRICLE: NORMAL TRICUSPID VALVE: NORMAL MITRAL VALVE: NORMAL PULMONIC VALVE: NORMAL AORTIC VALVE: NORMAL PERICARDIAL EFFUSION: NONE AORTIC ROOT: NORMAL LEFT VENTRICULAR WALL MOTION: NORMAL. DOPPLER/COLOR FLOW: NORMAL. COMMENTS: NORMAL 2D ECHO WITH DOPPLER. NO WALL MOTION ABNORMALITY. NO EFFUSION. TECHNOLOGIST: JEFFREY ROSSI
--- NOTE | 2019-12-28 07:25 | EKG ---
Test Date: 2019-12-25 Test Time: 14:39:52 Gizzard Puller: MARCUS MEASUREMENT RESULTS: Intervals: Rate: 69 NV: 160 QRSD: 74 QT: 424 QTc: 454 Garner: P: 60 NV: 160 QRS: 27 T: 73 INTERPRETIVE STATEMENTS: Normal sinus rhythm Normal ECG Compared to ECG 12/22/2019 22:13:26 No significant changes Electronically Signed On 12-28-19 07:23:15 CDT by Elder Tejeda
== END 2019-12-26 21:40 | disposition home health service (06) | DRG 73 ==
LOC: ER 22:05 → ERHOLD 12-23 00:20 → 2ND 12-23 00:37
PROVIDERS: ADMIT Hospitalist; ATTEND Family Medicine
DX: E11.40 Type 2 diabetes mellitus with diabetic neuropathy, unspecified (principal); N18.6 End stage renal disease; E87.1 Hypo-osmolality and hyponatremia; I12.0 Hypertensive chronic kidney disease with stage 5 chronic kidney disease or end stage renal disease; G45.9 Transient cerebral ischemic attack, unspecified; Z79.82 Long term (current) use of aspirin; Z79.4 Long term (current) use of insulin; Z79.891 Long term (current) use of opiate analgesic; Z79.899 Other long term (current) drug therapy; H54.8 Legal blindness, as defined in USA; Z85.850 Personal history of malignant neoplasm of thyroid; Z90.49 Acquired absence of other specified parts of digestive tract; E78.5 Hyperlipidemia, unspecified; K21.9 Gastro-esophageal reflux disease without esophagitis; E11.22 Type 2 diabetes mellitus with diabetic chronic kidney disease; E11.319 Type 2 diabetes mellitus with unspecified diabetic retinopathy without macular edema; F17.200 Nicotine dependence, unspecified, uncomplicated; J44.9 Chronic obstructive pulmonary disease, unspecified; F41.8 Other specified anxiety disorders; Z99.2 Dependence on renal dialysis; D63.8 Anemia in other chronic diseases classified elsewhere; K31.84 Gastroparesis; K59.00 Constipation, unspecified; Z86.73 Personal history of transient ischemic attack (TIA), and cerebral infarction without residual deficits; N25.0 Renal osteodystrophy; D63.1 Anemia in chronic kidney disease
CPT/HCPCS: 36415; 70450; 70551; 71045; 71046; 74018; 80048; 80053; 80061; 80076; 80307; 82553; 82607; 82947; 83036; 83540; 83690; 83735; 83880; 84100; 84436; 84443; 84484; 85025; 85610; 85730; 90935; 92523; 93005; 93306; 93880; 97112; 97116; 97161; 97530; 99285; J1170; J1644; J1650; J1815; J2405; J7030

== ENCOUNTER 2020-02-08 14:22 | Inpatient (IN) | payer OTHER ==
--- NOTE | 2020-02-08 15:58 | RAD REPORT ---
EXAM DESCRIPTION: CT - Head Brain Wo Cont - 02/08/2020 3:24 pm CLINICAL HISTORY: Weakness;Numbness COMPARISON: Ct Stroke Brain Wo Cont dated 12/22/2019; Brain Wo Cont dated 12/23/2019 TECHNIQUE: Axial 5 mm thick images of the head were obtained without IV contrast. All CT scans are performed using dose optimization technique as appropriate and may include automated exposure control or mA/KV adjustment according to patient size. FINDINGS: No intracranial hemorrhage, mass, edema or shift of mid-line structures. No acute cortical based infarction. No cortical edema or sulcal effacement. Patient has atrophy and chronic ischemic c hanges that are advanced for age. Old ischemic focus evident in the medial right thalamus similar to prior imaging. Brainstem chronic ischemic changes seen. Intracranial findings are not clearly differe nt from comparison. However, chronic ischemic change can mask nonhemorrhagic CVA. Ventricles are in p roportion to volume loss. Mastoid air cells and visualized portions of the paranasal sinuses are clear. No acute bony findings. IMPRESSION: No intracranial hemorrhage. No acute cortical based infarction. Advanced for age atrophy and chronic ischemic change not substantially different from comparison. Chronic ischemic changes can mask nonhemorrhagic acute infarction. MR brain followup can be obtained if there is ongoing concern for acute ischemia.
--- NOTE | 2020-02-08 15:59 | RAD REPORT ---
EXAM DESCRIPTION: RAD - Chest Single View - 02/08/2020 3:08 pm CLINICAL HISTORY: CHEST PAIN COMPARISON: Two view chest December 22 TECHNIQUE: AP portable chest image was obtained 02/08/2020 3:08 pm . FINDINGS: Lung volumes are low. Lung mendoza are clear. No failure or volume overload. Dialysis alejandro ter has been removed since prior imaging. Heart and vasculature are normal. No measurable pleural eff usion and no pneumothorax. No acute bony abnormality seen. No acute aortic findings suspected. IMPRESSION: No acute cardiopulmonary process. No suspicious change from comparison.
[2020-02-08 16:17] LABS: Absolute Lymphocytes (CBC) 1.5 K/uL (0.7-4.9); Basophils % 0.6 % (0-1.3); Hematocrit 35.5 % (36.0-45.0); Lymphocytes % 15.7 % (15.3-44.8); MPV 8.9 fL (7.6-11.3); RBC Red Blood Cell Count 3.78 M/uL (3.86-4.86)
[2020-02-08 16:18] LABS: Protime INR 0.9
[2020-02-08] MEDS ORDERED: HYDROCODONE/APAP 5/325 MG TAB ONE (16:21)
--- OUTSIDE RECORDS SUMMARY | 2020-02-08 16:29 | XMS REPORT | Clinical Summary ---
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 to underlying condition ([facility]); Other specified hypothyroidism; Acute metabolic encephalopathy; DELMA (acute kidn ey injury) ([facility]) 07/15/2019 Travel 07/15/2019 Documentation Internal Medicine Negar Douglas MD after 02/07/2019 Family History Medical History Relation Name Comments [...] Taken Blood Pressure 163/76 07/18/2019 11:00 AM [employer] Pulse 85 07/18/2019 11:00 AM [employer] Temperature 36.5 C (97.7 F) 07/18/2019 11:00 AM [employer] Respiratory Rate 18 07/18/2019 11:00 AM [employer] Oxygen Saturation 98% 07/18/2019 11:00 AM [employer] Inhaled Oxygen Concentration - - Weight 98.8 kg (217 lb 13 oz) 07/16/2019 5:08 PM [employer] Height 162.6 cm (5' 4") 07/15/2019 9:22 PM [employer] Body Mass Index 37.39 07/16/2019 5:08 PM [employer] Plan of Treatment Health Maintenance Due Date [...] PROCEDURE - 07/21/2019 8:51 ENDOSCOPY SCAN AM [employer] RHYTHM STRIP - SCAN 07/21/2019 8:50 AM [employer] XR CHEST 1 VIEW STAT 07/18/2019 11:09 Results for this PORTABLE/BEDSIDE AM [employer] procedure a re in the results section. POCT-GLUCOSE METER Routine 07/18/2019 8:22 Resul ts for this AM [employer] procedure are i n the results section. CBC W/PLT COUNT & AUTO Routine 07/18/2019 4:37 R esults for this DIFFERENTIAL AM [employer] procedure are i n the results section. CBC W/PLT COUNT & AUTO Routine 07/18/2019 4:37 R esults for this DIFFERENTIAL AM [employer] procedure are i n the results section. PROTHROMBIN TIME/INR Routine 07/18/2019 4:37 Res ults for this AM [employer] procedure are i n the results section. PHOSPHORUS Routine 07/18/2019 4:37 Results for this AM [employer] procedure are i n the results section. MAGNESIUM Routine 07/18/2019 4:37 Results for this AM [employer] procedure are i n the results section. BASIC METABOLIC PANEL Routine 07/18/2019 4:37 Re sults for this (7) AM [employer] procedure are i n the results section. POCT-GLUCOSE METER Routine 07/17/2019 8:56 Resul ts for this PM [employer] procedure are i n the results section. POCT-GLUCOSE METER Routine 07/17/2019 5:07 Resul ts for this PM [employer] procedure are i n the results section. POCT-GLUCOSE METER Routine 07/17/2019 12:28 Resul ts for this PM [employer] procedure are i n the results section. SCREEN, URINE Routine 07/17/2019 11:36 Results for this AM [employer] procedure are i n the results section. POCT-GLUCOSE METER Routine 07/17/2019 7:18 Resul ts for this AM [employer] procedure are i n the results section. CBC W/PLT COUNT & AUTO Routine 07/17/2019 5:55 R esults for this DIFFERENTIAL AM [employer] procedure are i n the results section. CBC W/PLT COUNT & AUTO Routine 07/17/2019 5:55 R esults for this DIFFERENTIAL AM [employer] procedure are i n the results section. PROTHROMBIN TIME/INR Routine 07/17/2019 5:55 Res ults for this AM [employer] procedure are i n the results section. PHOSPHORUS Routine 07/17/2019 5:55 Results for this AM [employer] procedure are i n the results section. MAGNESIUM Routine 07/17/2019 5:55 Results for this AM [employer] procedure are i n the results section. BASIC METABOLIC PANEL Routine 07/17/2019 5:55 Re sults for this (7) AM [employer] procedure are i n the results section. MR BRAIN WITHOUT IV Routine 07/17/2019 12:54 Resu lts for this CONTRAST AM [employer] procedure are i n the results section. MRA NECK WITHOUT IV Routine 07/17/2019 12:54 Resu lts for this CONTRAST AM [employer] procedure are i n the results section. MRA HEAD WITHOUT IV Routine 07/17/2019 12:54 Resu lts for this CONTRAST AM [employer] procedure are i n the results section. ECHOCARDIOGRAM REPORT - 07/16/2019 9:20 SCAN PM [employer] POCT-GLUCOSE METER Routine 07/16/2019 9:03 Resul ts for this PM [employer] procedure are i n the results section. HEMODIALYSIS INPATIENT Routine 07/16/2019 5:23 R esults for this PM [employer] procedure are i n the results section. POCT-GLUCOSE METER Routine 07/16/2019 5:21 Resul ts for this PM [employer] procedure are i n the results section. HEPATITIS B SURFACE Routine 07/16/2019 1:41 Resu lts for this ANTIGEN PM [employer] procedure are i n the results section. POCT-GLUCOSE METER Routine 07/16/2019 1:01 Resul ts for this PM [employer] procedure are i n the results section. POCT-GLUCOSE METER Routine 07/16/2019 12:03 Resul ts for this PM [employer] procedure are i n the results section. 2D ECHO W/ DOPPLER Routine 07/16/2019 11:13 Resul ts for this (CW/PW/COLOR) AM [employer] procedure are in the results section. BASIC METABOLIC PANEL Routine 07/16/2019 8:40 Re sults for this (7) AM [employer] procedure are i n the results section. POCT-GLUCOSE METER Routine 07/16/2019 8:05 Resul ts for this AM [employer] procedure are i n the results section. ECG 12-LEAD STAT 07/16/2019 7:43 Results for this AM [employer] procedure are i n the results section. POCT-GLUCOSE METER Routine 07/16/2019 7:30 Resul ts for this AM [employer] procedure are i n the results section. XR CHEST 1 VIEW Routine 07/16/2019 7:04 Results for this PORTABLE/BEDSIDE AM [employer] procedure a re in the results section. POCT-GLUCOSE METER Routine 07/16/2019 5:21 Resul ts for this AM [employer] procedure are i n the results section. BASIC METABOLIC PANEL STAT 07/16/2019 5:14 Re sults for this (7) AM [employer] procedure are i n the results section. HEMOGLOBIN A1C Routine 07/16/2019 3:50 Results f or this AM [employer] procedure are i n the results section. CBC W/PLT COUNT & AUTO Routine 07/16/2019 3:49 R esults for this DIFFERENTIAL AM [employer] procedure are i n the results section. CBC W/PLT COUNT & AUTO Routine 07/16/2019 3:49 R esults for this DIFFERENTIAL [employer] procedure are i n the results section. LIPID PANEL Routine 07/16/2019 3:49 Results for this AM [employer] procedure are i n the results section. PHOSPHORUS Routine 07/16/2019 3:49 Results for this AM [employer] procedure are i n the results section. MAGNESIUM Routine 07/16/2019 3:49 Results for this AM [employer] procedure are i n the results section. HEPATIC FUNCTION PANEL Routine 07/16/2019 3:49 R esults for this AM [employer] procedure are i n the results section. BASIC METABOLIC PANEL Routine 07/16/2019 3:49 Re sults for this (7) AM [employer] procedure are i n the results section. HIV-1 ANTIGEN WITH Routine 07/16/2019 3:48 Resul ts for this HIV-1/2 ANTIBODY AM [employer] procedure a re in the results section. RPR Routine 07/16/2019 3:48 Results for this AM [employer] procedure are i n the results section. VITAMIN B12 AND FOLATE Routine 07/16/2019 3:48 R esults for this AM [employer] procedure are i n the results section. TSH/FREE T4 IF Routine 07/16/2019 3:48 Results f or this INDICATED AM [employer] procedure are i n the results section. PROTHROMBIN TIME/INR Routine 07/16/2019 3:48 Res ults for this AM [employer] procedure are i n the results section. POCT-GLUCOSE METER Routine 07/16/2019 3:34 Resul ts for this AM [employer] procedure are i n the results section. after 02/07/2019 Results EKG-SCANNED (07/21/2019 8:51 AM [employer]) Narrative Performed At This result has an attachment that is no t available. RHYTHM STRIP - SCAN (07/21/2019 8:50 AM [employer]) Narrative Performed At This result has an attachment that is no t available. XR chest 1 view portable / bedside (07/18/2019 11:09 AM [employer])Only the most recent of2 resultswithin the time period is included. Specimen Narrative Performed At FINAL REPORT [facility] [employer] RAD, CHEST, 1 VIEW, NON DEPT INDICATION: r/o pneumonia COMPARISON: July 16, 2019 FINDINGS: Portable frontal view of the c hest. IMPRESSION: Support Lines: Stable left IJ dual-lumen central venous catheter. Lungs and pleura: Lungs are clear. No ef fusion. No pneumothorax. Heart and mediastinum: Stable contours. Additional findings: None. Signed: JR Mccollum Robert MD Report Verified Date/Time:07/18/2019 11:27:35 Reading Location: [facility] Reading Room Procedure Note Interface, External Ris In - 07/18/2019 11:29 AM [employer] FINAL REPORT RAD, CHEST, 1 VIEW, NON [...] Verified Date/Time: 07/18/2019 1 1:27:35 Reading Location: [facility] Reading Room Performing Organization Address City/[facility] Cent[facility]ode Phone Number [employer] POC-Glucose meter (07/18/2019 8:22 AM [employer])Only the most recent of13 results within the time period is included. POC-Glucose Meter 126 (H)Comment: : TESTED 70 - 110 mg/dL [facility] AT [address], [address]: Medical Insurance Clerk/Equalizing Saw Operator ID = [id number] for Baldomero Kuo Specimen Blood Performing Organization Address City/[facility] Centercode Phone Number [facility] [address] [address] CENTER CBC with platelet count + automated diff (07/18/2019 4:37 AM [employer])Only the most recent of3 resultswithin the time period is included. WBC 13.0 (H) 3.5 - 10.5 K/L [facility] RBC 3.80 (L) 3.93 - 5.22 M/L [facility] Hemoglobin 11.3 11.2 - 15.7 GM/DL [facility] Hematocrit 35.2 34.1 - 44.9 % [facility] MCV 92.6 79.4 - 94.8 fL [facility] MCH 29.7 25.6 - 32.2 pg [facility] MCHC 32.1 (L) 32.2 - 35.5 GM/DL [facility] RDW 13.6 11.7 - 14.4 % [facility] Platelets 233 150 - 450 K/CU MM [facility] MPV 9.5 9.4 - 12.3 fL [facility] nRBC 0 0 - 0 /100 WBC [facility] % Neutros 70 % [facility] % Lymphs 20 % [facility] % Monos 7 % [facility] % Eos 2 % [facility] % Baso 1 % [facility] # Neutros 9.09 (H) 1.56 - 6.13 K/L [facility] # Lymphs 2.65 1.18 - 3.74 K/L [facility] # Monos 0.93 (H) 0.24 - 0.36 K/L [facility] # Eos 0.24 0.04 - 0.36 K/L [facility] # Baso 0.07 0.01 - 0.08 K/L [facility] Immature Granulocytes-Relative 0 0 - 1 % C [facility] Specimen Blood Performing Organization Address City/[facility] Centercode Phone Number [address] [address] CENTER Prothrombin time/INR (07/18/2019 4:37 AM [employer])Only the most recent of3 results within the time period is included. Protime 12.2 11.9 - 14.2 seconds [facility] INR 1.0 <=5.9 [facility] Specimen Blood Narrative Performed At Effective 01/12/2019: PT Reference Range [facility] Change New: 11.9-14.2Previous: 11.7-14.7 RECOMMENDED COUMADIN/WARFARIN INR THERAPY RANGES STANDARD DOSE: 2.0-3.0Includes: PROPHYLAXIS for venous thrombosis, systemic embolization; TREATMENT for venous thrombosis and/or pulmonary embolus. HIGH RISK: Target INR is 2.5-3.5 for patients wiht mechanical heart valves. Performing Organization Address [facility] Centercola Phone Number [address] [address] CENTER Phosphorus (07/18/2019 4:37 AM [employer])Only the most recent of3 resultswithin the time period is included. Phosphorus 4.6 2.3 - 4.7 mg/dL [facility] Specimen Blood Performing Organization Address City/[facility]/Zipcode Phone Number [address] [address] CENTER Magnesium (07/18/2019 4:37 AM [employer])Only the most recent of3 resultswithin the time period is included. Magnesium 2.0 1.6 - 2.6 mg/dL [facility] Specimen Blood Performing Organization Address City/[facility]/Zipcode Phone Number [address] [address] [place] Basic metabolic panel (07/18/2019 4:37 AM [employer])Only the most recent of5 results within the time period is included. Sodium 134 (L) 136 - 145 meq/L [facility] Potassium 5.0 3.5 - 5.1 meq/L [facility] Chloride 103 98 - 107 meq/L [facility] CO2 25 22 - 29 meq/L [facility] BUN 28 (H) 7 - 21 mg/dL [facility] Creatinine 5.40 (H) 0.57 - 1.25 mg/dL [facility] Glucose 146 (H) 70 - 105 mg/dL [facility] Calcium 8.8 8.4 - 10.2 mg/dL [facility] EGFR 9Comment: ESTIMATED GFR IS mL/min/1.73 sq m [facility] NOT ACCURATE CREATININE [facility] CLEARANCE IN PREDICTING GLOMERULAR FILTRATION RATE. ESTIMATED GFR IS NOT APPLICABLE FOR DIALYSIS PATIENTS. Specimen Blood Performing Organization Address [facility] Centercode Phone Number [address] [address] [place] Screen, urine (07/17/2019 11:36 AM [employer]) Preg Test, Ur Negative [facility] Specimen Urine Performing Organization Address [facility]/Zipcode Phone Number [place] [phone] [place] [address] [place] MR brain without IV contrast (07/17/2019 12:54 AM [employer]) Specimen Narrative Performed At FINAL REPORT [facility] MR, BRAIN, WITHOUT CONTRAST, MR, [...] External Ris In - 07/17/2019 4:57 AM [employer] FINAL REPORT MR, BRAIN, WITHOUT CONTRAST, MR, [...] 3:28:33 Performing Organization Address City/State/Zipcode Phone Number [employer] MR MRA neck without contrast (07/17/2019 12:54 AM [employer]) Specimen Narrative Performed At FINAL REPORT [employer] MR, BRAIN, WITHOUT CONTRAST, MR, MRA, NE [...] External Ris In - 07/17/2019 4:57 AM [employer] FINAL REPORT MR, BRAIN, WITHOUT CONTRAST, MR, [...] 3:28:33 Performing Organization Address City/State/Zipcode Phone Number [employer] MR MRA head without contrast (07/17/2019 12:54 AM [employer]) Specimen Narrative Performed At FINAL REPORT [employer] LOVELY MR, BRAIN, WITHOUT CONTRAST, MR, MRA, [...] External Ris In - 07/17/2019 4:57 AM [employer] FINAL REPORT MR, BRAIN, WITHOUT CONTRAST, MR, [...] 3:28:33 Performing Organization Address City/State/Zipcode Phone Number [employer] RIS ECHOCARDIOGRAM REPORT - SCAN (07/16/2019 9:20 PM [employer]) Narrative Performed At This result has an attachment that is no t available. HEMODIALYSIS INPATIENT (07/16/2019 5:23 PM [employer]) Narrative Performed At Jeff Mcduffie RN 06/195:24 [...] Hepatitis B surface antigen (07/16/2019 1:41 PM [employer]) HBsAg Screen Nonreactive Nonreactive [facility] Specimen Blood Performing Organization Address City/State/Zipcode Phone Number [facility] [address] [place] [address] CENTER 2D Echo W/Doppler(CW/PW/Color) (07/16/2019 11:13 AM [employer]) Ejection Fraction [facility] ECHO HEAR TLAB MKCKESSON CPA Specimen Narrative Performed At Transthoracic Echocardiography Report (T TE) [facility] ECHO HEARTLAB MKCKESSON CPACS Demographics Patient NameSPeyman HUTCHINSON of Study07/16/2019 Gender Female Visit [id number] Race Unknown [id number] Number Date of 1975 ReferringMaoud [facility] Phys[facility] Age 43 year(s) SonographerDaja Arthur [facility] Coremaker Apprentice Yanna McdonaldInterpreting Marcella Yanez MD [facility] Procedure Type of Study TTE procedure:2DECHO [...] External Ris In - 07/16/2019 2:11 PM [employer] Transthoracic Echocardiography Report (TTE) Demographics Patient Name ARCHANA WOO Date of St udy 07/16/2019 Gender Female Visit Number [id number] Race Unknown [facility] r [id number] Number Date of 1975 Referring Arvin Ann Physician Age 43 year(s) Sonographe r Daja Arthur, [facility] Coremaker Apprentice Yanna Blanchardi MD Oscar Dupont Physician Procedure [...] City/State/Zipcode Phone Number [facility] ECHO HEARTLAB MKCKESSON [facility] ECG 12 lead (07/16/2019 7:43 AM [employer]) Specimen Narrative Performed At Ventricular Rate 87 BPM GE MUSE Atrial Rate 87 BPM P-R Interval 136 ms QRS Duration 72 ms Q-T Interval 380 ms QTC Calculation(Bazett) 457 ms P Coward 68 degrees R Coward 17 degrees T Coward 65 degrees Normal sinus rhythm Normal ECG When compared with ECG of 19-MAR-2017 15 :16, QT has shortened Confirmed by MD GUTIÉRREZ YOCHAI ([id number]) on 07/18/2019 7:35:43 AM Procedure Note Interface, External Ris In - 07/18/2019 7:35 AM [employer] Ventricular Rate 87 BPM Atrial Rate 87 BPM P-R Interval 136 ms QRS Duration 72 ms Q-T Interval 380 ms QTC Calculation(Bazett) 457 ms P Coward 68 degrees R Coward 17 degrees T Coward 65 degrees Normal sinus rhythm Normal ECG When compared with ECG of 19-MAR-2017 15 :16, QT has shortened Confirmed by MD GUTIÉRREZ YOCHAI ([id number]) on 07/18/2019 7:35:43 AM Performing Organization Address City/[facility] Phone Number GE MUSE Hemoglobin A1c (07/16/2019 3:50 AM [employer]) Hemoglobin A1C 9.5 (H) 4.3 - 6.1 % [facility] Specimen Blood Performing Organization Address [facility] Phone Number [address] [address] CENTER Hepatic function panel (07/16/2019 3:49 AM [employer]) Protein, Total 6.3 6.0 - 8.3 gm/dL [facility] Albumin 3.0 (L) 3.5 - 5.0 g/dL [facility] Total Bilirubin 0.4 0.2 - 1.2 mg/dL [facility] Bilirubin, Direct 0.2 0.1 - 0.5 mg/dL [facility] Alkaline Phosphatase 182 (H) 40 - 150 U/L [facility] AST 63 (H) 5 - 34 U/L [facility] ALT 99 (H) 6 - 55 U/L [facility] Specimen Blood Performing Organization Address [facility] Phone Number [address] [address] [place] Lipid panel (07/16/2019 3:49 AM [employer]) Triglycerides 100 mg/dL [facility] Cholesterol 177 mg/dL [facility] HDL 48 mg/dL [facility] LDL Calculated 109 mg/dL [facility] Specimen Blood Narrative Performed At Triglyceride Reference Range: [facility] Low Risk <150 [id number] High Risk 200-499 Very High Risk>=500 Cholesterol Reference Range: Low Risk <200 [id number] High Risk>240 HDL Cholesterol Reference Range: Low Risk >=60 High Risk <40 LDL Cholesterol Reference Range: Optimal<100 Near [id number] Very High >=190 Performing Organization Address City/State/Zipcode Phone Number [address] [phone] [place] Vitamin B12 and Folate (07/16/2019 3:48 AM [employer]) Vitamin B12 525 213 - 816 pg/mL [facility] Folate 6.5 (L) >=7.0 ng/mL [facility] Specimen Blood Performing Organization Address City/[facility] Centercode Phone Number [address] [address] [place] TSH/Free T4 If Indicated (07/16/2019 3:48 AM [employer]) TSH 0.87 0.35 - 4.94 uIU/mL [facility] Specimen Blood Performing Organization Address City/[facility]/Zipcode Phone Number [address] [address] [place] HIV-1 Antigen with HIV-1/2 Antibody (07/16/2019 3:48 AM [employer]) HIV-1 Antigen with HIV 1&2 Nonreactive Nonreactive [facility] Specimen Blood Performing Organization Address City/State/Zipcode Phone Number [facility] [address] [place] [address] CENTER RPR (07/16/2019 3:48 AM [employer]) RPR Nonreactive Nonreactive [facility] Specimen Blood Performing Organization Address City/State/Zipcode Phone Number [facility] [address] [place] [address] CENTER after 02/07/2019 Insurance Payer Benefit Plan / Subscriber ID Type Phone Address Group [facility] MED[facility] xxxxxxxxx MEDICARE MGD CARE HMO MEDICAID - MEDICAID [place] [employer] xxxxxxxxx Medicaid Contracted MGD CARE PLAN Advance Directives For more information, please contact:[place] [phone] [place], [place] [phone] Code Status Date Activated Date Inactivated Comments Full Code 07/16/2019 12:46 AM 07/18/2019 4:56 PM This code status was determined by: Patient Full Code 03/14/2017 8:30 PM 03/20/2017 12:11 PM This code status was determined by: Patient
--- OUTSIDE RECORDS SUMMARY | 2020-02-08 16:33 | XMS REPORT | Continuity of Care Document ---
:[address] [facility] t Address [address] [place] [address] Dr. [address] [place] [address] Care Team Providers Name Role Phone Stella REYNOSO Attending Clinician Seth REYNOSO Attending Clinician Graham Schultz MD Attending Clinician Raphael REYNOSO Attending Clinician STELLA Attending Clinician Unavailable LYN EDWARDS Attending Clinician Unavailable Graham SCHULTZ Admitting Clinician Unavailable LYN EDWARDS Admitting Clinician Unavailable Payers Payer Name Policy Policy Number Effective Expiration Source Type Date Date [facility] - xxxxxxxxx [facility] MGD CAREUNITED L ukes - MEDICARE HMOxxxxxxxxx [facility] MEDICAID - MEDICAID MGD xxxxxxxxx [facility] CAREMCD COMM STAR [facility] - PLANxxxxxxxxxMedicaid [facility] Contracted Center Problems Condition Condition Condition Status Onset Resolution Last Treating Co mments Source Name Details Category Date Date Treatment Clinician Date Left sided Left sided Disease Active 2018-[address] numbness numbness 09-15 [facility] - 00:[facility]: Medical 00 [place] ESRD on ESRD on Disease Active 2018-[address] [facility] dialysis dialysis 09-15 [facility] - 00:00: Medical 00 [place] Proteinuri Proteinuri Disease Active [facility] a a 8- [facility] - [facility] Medical 00 Center Gastropare Gastropare Disease Active [facility] sis sis 03-19 [facility] - 00:[facility]: Medical 00 Center DELMA (acute DELMA (acute Disease Active [facility] kidney kidney 03-16kes - injury) injury) 00:00: Medical 00 Center Acute Acute Disease Active [facility] metabolic metabolic 03-16 [facility] - encephalop encephalop 00:00: Ut dical athy athy 00 Center Cerebrovas Cerebrovas Disease Active [facility] cular cular 03-15 [facility] - accident accident 00:00: Medica l (CVA) due (CVA) due 00 Cent er to to embolism 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 Hypothyroi Hypothyroi Disease Active [facility] dism dism 03-15 [facility] - 00:[facility]: Medical 00 Center Diabetes Diabetes Disease Active [facility] mellitus mellitus 03-15 [facility] - [facility] 00 Center Depression Depression Disease Active [facility] 03-15 [facility] - 00:[facility]: Medical 00 Center Anxiety Anxiety Disease Active [facility] 03-15 [facility] - 00:[facility]: Medical 00 Center GERD GERD Disease Active [facility] (gastroeso (gastroeso 03-15 Carolann kes - phageal phageal 00:00: [facility] reflux reflux 00 [place] disease) disease) COPD COPD Disease Active [facility] (chronic (chronic 03-15 [facility] - obstructiv obstructiv 00:00: Ut dical e e 00 Center pulmonary pulmonary disease) disease) Chronic Chronic Disease Active [facility] renal renal 03-15 [facility] - disease disease 00:00: Medical 00 Center Hyperlipid Hyperlipid Disease Active [facility] emia emia 03-15 [facility] - 00:00: Medical 00 Center History of History of Disease Active [facility] thyroid thyroid 03-15 [facility] - cancer cancer 00:00: Medical 00 Center Blind Blind Disease Active [facility] 03-15 [facility] - 00[facility]: Medical 00 Center Tobacco Tobacco Disease Active [facility] abuse abuse 03-15 [facility] - 00:00: Medical 00 Center Diabetic Diabetic Disease Active [facility] retinopath retinopath 03-15 Carolann kes - y y 00:00: Medical 00 Center Diabetic Diabetic Disease Active [facility] nephropath nephropath 7-30 Carolann kes - y y 00:00: [place] [address] Center Allergies, Adverse Reactions, Alerts Allergy Allergy Status Severity Reaction(s) Onset Inactive Treating Comm ents Source Name Type Date Date Clinician No Known DA Active [facility] Allergie 08-22 [place] 00:[facility]: [address] Family History Family Member Diagnosis Comments Start Date Stop Date Source Natural father Hypertension [facility] Natural mother Diabetes [facility] Natural mother Kidney disease [facility] Social History Social Habit Start Date Stop Date Quantity Comments Source Sex Assigned At [facility] Smoking Status Start Date Stop Date Source Current every day smoker 2019-07-16 00:00:00 [facility] Medications Ordered Filled Start Stop Current Ordering Indication Dosage Frequency Signature Comments Components Source Medication Medication Date Date Medication? Clinician (SIG) Name Name amLODIPine 2018-08- No 5mg QD Take [address] [facility] [address] (NORVASC) 5 09-19 tablet (5 Carolann kes - MG tablet 00:00: 23:59 mg total) Me dical 00 :00 by mouth Center daily for 30 days. aspirin 81 2018-08- No 81mg QD Take [address] [facility] [address] MG chewable 09-19 tablet (81 L ukes - tablet 00:00: 23:59 mg total) Medic al 00 :00 by mouth Center daily for 30 days. atorvastati 2018-08- No 40mg QD Take [address] n (LIPITOR) 09-18 tablet (40 L ukes - 40 MG 00:00: 23:59 mg total) Medica l tablet 00 :00 by mouth Center nightly for 30 days. cyclobenzap 2018-08 Yes 2.5mg [id number] Take 2.[address] rine 0-16 [id number] mg by [facility] - (FLEXERIL) 00:00: 3D mouth 3 Medi gahssan 5 MG tablet 00 (three) Cente r times daily. DULoxetine 2018-08 Yes 30mg QD Take [address] (CYMBALTA) 0-16 by mouth [facility] - 30 MG 00:00: daily. Medical capsule [address] [place] [address] famotidine 2018-08 Yes 20mg QD Take [address] (PEPCID) 20 0-16 by mouth Luke [facility] - MG tablet 00:00: daily. Medica l 00 Center furosemide 2018-08 Yes 80mg Q.5D Take [address] (LASIX) 40 0-16 by mouth 2 Elsie es - MG tablet 00:00: (two) Medical 00 times Center daily. gabapentin 2018-08 Yes 100mg Take [address] (NEURONTIN) 0-16 mg by [facility] - 100 MG 00:00: mouth Medical capsule 00 every Center Thursday, Thursday, Thursday. lisinopril 2018-08 Yes 20mg Q.5D Take [address] (PRINIVIL,Z 0-16 by mouth 2 Carolann kes - ESTRIL) 20 00:00: (two) Medica l MG tablet 00 times Center daily. traMADol 2018-08 Yes 50mg Take [address] [facility] (ULTRAM) 50 0-16 by mouth [facility] - mg tablet 00:00: daily as Medi ghassan 00 needed FOR Center PAIN. insulin Yes 50U QD Inject 50 [facility] glargine 8-04 Units [facility] - (LANTUS) 00:00: subcutaneo Med ical 100 unit/mL 00 usly every Ce nter injection morning Use as directed . magnesium Yes 400mg QD Take [address] oxide 7-30 mg by [facility] - (MAG-OX) 18:25: mouth Medical 400 mg 59 daily. Center tablet prednisoLON Yes 1[drp] [address] [facility] E acetate 7-30 needed. Tyrese - (PRED 18:25: Medical FORTE) 1 % 59 Center ophthalmic suspension multivitami Yes 1{tbl} QD Take [address] n 7-30 tablet by [facility] - (MULTIVITAM 18:25: mouth Medic al IN) per 59 daily. Center tablet metoclopram Yes 10mg Take [address] avni HCl 7-30 by mouth 4 [facility] - (REGLAN) 10 18:25: (four) Medi ghassan MG tablet 59 times Center daily as needed for Nausea. erythromyci Yes 250mg Take [address] n base 7-30 mg by [facility] - (E-MYCIN) 18:25: mouth Medical 250 MG 59 every 6 Center tablet (six) hours as needed. HYDROcodone Yes 1{tbl} Take [address] -acetaminop 7-30 tablet by Elsie horne - hen (NORCO 18:25: mouth Medica l 7.5-325) 58 every 6 Center 7.5-325 mg (six) per tablet hours as needed for Pain. ALPRAZolam Yes 1mg Take [address] (XANAX) 1 7-30 by mouth [facility] - MG tablet 18:25: every Medical 58 night as Center needed for Anxiety. busPIRone Yes 10mg [id number] Take [address] (BUSPAR) 10 7-30 [id number] by mouth 3 [facility] - MG tablet 18:25: 3D (three) Medic al 58 times Center daily. esomeprazol Yes 40mg QD Take [address] e (NEXIUM) 7-30 by mouth [facility] - 40 MG 18:25: daily. Medical capsule 58 Center fenofibrate Yes 48mg QD Take [address] (TRICOR) 48 7-30 by mouth Luke s - MG tablet 18:25: daily. Medica l 58 Center levothyroxi Yes 150ug Take [address] ne 7-30 mcg by [facility] - (SYNTHROID, 18:25: mouth Medic al LEVOTHROID) 58 Every Center 150 MCG morning on tablet an empty stomach. PARoxetine Yes 40mg QD Take [address] (PAXIL) 40 7-30 by mouth [facility] - MG tablet 18:25: every Medical 57 morning. Center Vital Signs Vital Name Observation Time Observation Value Comments Source Systolic blood 2019-07-18 11:00:00 163 mm[Hg] [facility] Diastolic blood 2019-07-18 11:00:00 76 mm[Hg] [facility] t [facility] pressure [facility] Heart rate 2019-07-18 11:00:00 85 /min [facility] Body temperature 2019-07-18 11:00:00 36.5 Mallory [facility] Respiratory rate 2019-07-18 11:00:00 18 /min [facility] Oxygen saturation in 2019-07-18 11:00:00 98 /min [facility] - Arterial blood by Medical Ce nter Pulse oximetry Body weight Measured 2019-07-16 17:08:00 98.8 kg [facility] BMI 2019-07-16 17:08:00 37.39 kg/m2 [facility] Body height 2019-07-15 21:22:00 162.6 cm [facility] Procedures Procedure Date / Time Performing Clinician Source Performed REPORT OF PROCEDURE - 2019-07-21 08:51:04 Provider, Default [facility] ENDOSCOPY SCAN Scanning [facility] RHYTHM STRIP - SCAN 2019-07-21 08:50:54 Provider, Default [facility] XR CHEST 1 VIEW 2019-07-18 11:09:00 Ann Lim [facility] PORTABLE/BEDSIDE [facility] Center POCT-GLUCOSE METER 2019-07-18 08:22:00 Ann Lim [facility] BASIC METABOLIC PANEL (7) 2019-07-18 04:37[facility] 2019-07-18 04:37:00 [facility] PHOSPHORUS 2019-07-18 04:37:00 [facility] PROTHROMBIN TIME/INR 2019-07-18 04:37:00 [facility] CBC W/PLT COUNT & AUTO 2019-07-18 04:37:00 [facility] POCT-GLUCOSE METER 2019-07-17 20:56:00 Shania Schultz [facility] POCT-GLUCOSE METER 2019-07-17 17:07:00 Shania Schultz [facility] POCT-GLUCOSE METER 2019-07-17 12:28:00 Shania Schultz [facility] SCREEN, URINE 2019-07-17 11:36:00 Ann Cook [facility] POCT-GLUCOSE METER 2019-07-17 07:18:00 Shania Schultz [facility] BASIC METABOLIC PANEL (7) 2019-07-17 05:55:00 [facility] MAGNESIUM 2019-07-17 05:55:00 [facility] PHOSPHORUS 2019-07-17 05:55:00 [facility] PROTHROMBIN TIME/INR 2019-07-17 05:55:00 [facility] CBC W/PLT COUNT & AUTO 2019-07-17 05:55:00 [facility] MRA HEAD WITHOUT IV 2019-07-17 00:54:00 [facility] MRA NECK WITHOUT IV 2019-07-17 00:54:00 [facility] MR BRAIN WITHOUT IV 2019-07-17 00:54:00 [facility] ECHOCARDIOGRAM REPORT - 2019-07-16 21:20:18 Provider, Default [facility] POCT-GLUCOSE METER 2019-07-16 21:03:00 Shania Schultz [facility] HEMODIALYSIS INPATIENT 2019-07-16 17:23:31 Ashwin Cole [facility] POCT-GLUCOSE METER 2019-07-16 17:21:00 Shania Schultz [facility] HEPATITIS B SURFACE 2019-07-16 13:41:00 Ashwin Cole [facility] POCT-GLUCOSE METER 2019-07-16 13:01:00 Shania Schultz [facility] POCT-GLUCOSE METER 2019-07-16 12:03:00 Shania Schultz [facility] 2D ECHO W/ DOPPLER 2019-07-16 11:13:59 [facility] (CW/PW/COLOR) [facility] BASIC METABOLIC PANEL (7) 2019-07-16 08:40:00 [facility] POCT-GLUCOSE METER 2019-07-16 08:05:00 Shania Schultz [facility] ECG 12-LEAD 2019-07-16 07:43:10 [facility] POCT-GLUCOSE METER 2019-07-16 07:30:00 [facility] 2019-07-16 07:04:00 [facility] PORTABLE/BEDSIDE Medical [place] POCT-GLUCOSE METER 2019-07-16 05:21:00 [facility] BASIC METABOLIC PANEL (7) 2019-07-16 05:14:00 [facility] HEMOGLOBIN A1C 2019-07-16 03:50:00 [facility] BASIC METABOLIC PANEL (7) 2019-07-16 03:49:00 [facility] HEPATIC FUNCTION PANEL 2019-07-16 03:49:00 [facility] MAGNESIUM 2019-07-16 03:49:00 [facility] PHOSPHORUS 2019-07-16 03:49:00 [facility] LIPID PANEL 2019-07-16 03:49:00 [facility] CBC W/PLT COUNT & AUTO 2019-07-16 03:49:00 [facility] PROTHROMBIN TIME/INR 2019-07-16 03:48:00 [facility] TSH/FREE T4 IF INDICATED 2019-07-16 03:48:00 [facility] VITAMIN B12 AND FOLATE 2019-07-16 03:48:00 [facility] RPR 2019-07-16 03:48:00 [facility] HIV-1 ANTIGEN WITH HIV-1/2 2019-07-16 03:48:[address] [facility] POCT-GLUCOSE METER 2019-07-16 03:34:00 Arvin Ann [facility] [id number] 2019-05-18 00:00:00 ENCPL [id number] 2019-05-18 00:00:00 ENCPL [id number] 2019-05-18 00:00:00 ENCPL [id number] 2019-05-18 00:00:00 ENCPL Plan of Care Planned Activity Planned Date Details Comments Source Future Scheduled 2020-04-[address] [facility] Test 00:00:00 (Season Ended) [code = Medic al Center INFLUENZA VACCINE (Season Ended)] Future Scheduled 2019-10-15 HEMOGLOBIN A1C [code = [facility] Test 00:00:00 HEMOGLOBIN A1C] Medical Cent er Future Scheduled 2017-08-[address] [facility] - Test 00:00:00 WELLNESS (YEAR 2 or Medical Center FIRST YEAR if no IPPE) [code = MEDICARE ANNUAL WELLNESS (YEAR 2 or FIRST YEAR if no IPPE)] Future Scheduled 1995-10-[address] [facility] es - Test 00:00:00 [facility] cerv[facility]procedure) [code = 604172566] Future Scheduled [address] [facility] - Test 00:00:00 2-64 YEARS AT RISK (1 Medica l Center of 3 - PCV13) [code = PNEUMOCOCCAL VACCINE 2-64 YEARS AT RISK (1 of 3 - PCV13)] Encounters Start End Encounter Admission Attending Care Care Encounter Source Date/Time Date/Time Type Type Clinicians Facility Department ID 2019-04-12 Inpatient [facility] MED [id number] [facility] W 13:57:46 Results Test Description Test Time Test Comments Results Result Comments Source HEPATITIS B SURF AB, QUANT 2019-09-21 18:16:00 Test Item Value Reference Range Interpretation Comme nts HEPATITIS 1.1 ~~~~~~~~~~~~~~~~~~~~~~~~~~~~~~~~~~~~~~~~~~~~~~~~~~~~~~~~~~~~INTERPRETIVE B SURF AB, mIU/mL DATA: <5.00 mIU /mL : Negative - Patient is considered to be notimmune to QUANT infection with HBV. >= 5.00 mIU/mL and <12.0 mIU/mL: Indeterminate - (test code Unable todeterm ine if anti-HBs is present at levels consistent = HBSABQ) withimmunity. P atient's immune status should be further assessedby considering oth er clinical information or retestinganother specimen drawn at a later time . >=12.0 mIU/mL: Positive - Anti-HBs detected at >10 mIU/mL.Patient is considered to be immune to infection with HBV. Ithas not been determ ined what the clinical significance isfor values greater than >=12 mIU/m L, other than theindividual is considered to be immune to HBV infection.~~~~~ ~~~~~~~~~~~~~~~~~~~~~~~~~~~~~~~~~~~~~~~~~~~~~~~~~~~~~~~ AG HEPATITIS B [id number] 18:16:00 Test Item Value Reference Range Interpretation Comments AG HEPATITIS B SURFACE (test code = NEGATIVE NONREACTIVE HBSAG) HIV 12 AB [id number] 18:16:00 Test Item Value Reference Range Interpretation Comments HIV 1 2 COMBO AG/AB SCREEN AB/AG NON REACTIVE NONREACTIVE (test code = [id number]) HEPATITIS B SURF AB, [id number] 17:51:00 Test Item Value Reference Range Interpretation Comments HEPATITIS B SURF AB, QUANT (test code mIU/mL = HBSABQ) AG HEPATITIS B [id number] 17:51:00 Test Item Value Reference Range Interpretation Comments AG HEPATITIS B SURFACE (test code = NEGATIVE NONREACTIVE HBSAG) HIV 12 AB [id number] 17:51:00 Test Item Value Reference Range Interpretation Comments HIV 1 2 COMBO AG/AB SCREEN AB/AG NON REACTIVE NONREACTIVE (test code = [id number]) HEPATITIS B SURF AB, [id number] 17:39:00 Test Item Value Reference Range Interpretation Comments HEPATITIS B SURF AB, QUANT (test code mIU/mL = HBSABQ) AG HEPATITIS B [id number] 17:39:00 Test Item Value Reference Range Interpretation Comments AG HEPATITIS B SURFACE (test code = NEGATIVE NONREACTIVE HBSAG) HIV 12 AB [id number] 17:39:00 Test Item Value Reference Range Interpretation Comments HIV 1 2 COMBO AG/AB SCREEN (test code = NONREACTIVE [id number]) GLUCOSE BEDSIDE [id number] 12:00:00 Test Item Value Reference Range Interpretation Comments GLUCOSE BEDSIDE TESTING (test code 136 MG/DL 60-99 H = GLUBED) GLUCOSE BEDSIDE [id number] 21:08:00 Test Item Value Reference Range Interpretation Comments GLUCOSE BEDSIDE TESTING (test code = 84 MG/DL 60-99 N GLUBED) BASIC METABOLIC [id number] 16:40:00 Test Item Value Reference Range Interpretation Comments SODIUM (test code = 134 MMOL/L 137-145 L NA) POTASSIUM (test code = 4.0 MMOL/L 3.5-5.1 N K) CHLORIDE (test code = 99 MMOL/L 98-107 N CL) CARBON DIOXIDE (test 25 MMOL/L 22-30 N code = CO2) ANION GAP (test code = 14 MMOL/L 14-24 N GAP) GLUCOSE (test code = 81 MG/DL 74-106 N GLU) BLOOD UREA NITROGEN 23 MG/DL 7-17 H (test code = BUN) GLOMERULAR FILTRATION 11 Report ing units: RATE (test code = GFR) ml/mi n/1.73 m2 (Modified MDRD Formula)Referen ce Range: > or = 6 0 ml/min/1.73 m2 CREATININE (test code 4.40 MG/DL 0.52-1.04 H = CREAT) CALCIUM (test code = 9.0 MG/DL 8.4-10.2 N CA) HCG SERUM [id number] 16:40:00 Test Item Value Reference Range Interpretation Comments HCG SERUM QUAL (test code = HCGQL) NEGATIVE NEGATIVE A PROTHROMBIN [id number] 16:32:00 Test Item Value Reference Range Interpretation Comments PROTHROMBIN TIME 10.0 SECONDS 9.6-11.6 N PATIENT (test code = PTP) INTERNATIONAL NORMAL 0.9 0.8-1.1 N The INR is to be RATIO (test code = used only for INR) monitoring oral anticoagulantth erap y. INDICATION I NR VALUE ---- ---- ---- -------1. Prophylaxis, de ep venous thrombos is, including hig h risk surgery. 2.0 - 3.0 2. Prophylaxis, de ep venous thrombos is, hip surgery, treatment for d eep venous thrombosis or pulmonary prevention of systemic emboli sm in patients wit h valvular heart disease, atrial fibrillation, tissue heart va lve, or acute myocar dial infarction. 2.0 - 3 .0 3. Mechanical prosthesis hear t valves, recurrent syste sunshine embolism. 3.0 - 4.5 Comments to Make Up Arranger: PREOPPTT [id number] 16:32:00 Test Item Value Reference Range Interpretation Comments PTT ACTIVATED (test code = APTT) 30.3 SECONDS 22.0-33.0 N Comments to Make Up Arranger: PREOPBASIC METABOLIC [id number] 16:32:00 Test Item Value Reference Range Interpretation Comments SODIUM (test code = NA) 134 MMOL/L 137-145 L POTASSIUM (test code = K) 4.0 MMOL/L 3.5-5.1 N CHLORIDE (test code = CL) 99 MMOL/L 98-107 N CARBON DIOXIDE (test code = CO2) MMOL/L 22-30 GLUCOSE (test code = GLU) MG/DL 74-106 BLOOD UREA NITROGEN (test code = MG/DL 7-17 BUN) GLOMERULAR FILTRATION RATE (test code = GFR) CREATININE (test code = CREAT) MG/DL 0.52-1.04 CALCIUM (test code = CA) MG/DL 8.7-9.7 HCG SERUM [id number] 16:32:00 Test Item Value Reference Range Interpretation Comments HCG SERUM QUAL (test code = HCGQL) NEGATIVE NEGATIVE A BASIC METABOLIC [id number] 16:31:00 Test Item Value Reference Range Interpretation Comments SODIUM (test code = NA) 134 MMOL/L 137-145 L POTASSIUM (test code = K) 4.0 MMOL/L 3.5-5.1 N CHLORIDE (test code = CL) 99 MMOL/L 98-107 N CARBON DIOXIDE (test code = CO2) MMOL/L 22-30 GLUCOSE (test code = GLU) MG/DL 74-106 BLOOD UREA NITROGEN (test code = MG/DL 7-17 BUN) GLOMERULAR FILTRATION RATE (test code = GFR) CREATININE (test code = CREAT) MG/DL 0.52-1.04 CALCIUM (test code = CA) MG/DL 8.7-9.7 HCG SERUM [id number] 16:31:00 Test Item Value Reference Range Interpretation Comments HCG SERUM QUAL (test code = HCGQL) NEGATIVE CBC W/AUTO [id number] 16:25:00 Test Item Value Reference Range Interpretation Comments WHITE BLOOD CELL (test code = 8.2 K/MM3 3.8-9.8 N WBC) RED BLOOD CELL (test code = 4.14 M/MM3 3.58-4.97 N RBC) HEMOGLOBIN (test code = HGB) 13.0 G/DL 11.2-14.9 N HEMATOCRIT (test code = HCT) 39.1 % 33.2-43.5 N MEAN CELL VOLUME (test code = 94 fL 80.7-99.1 N MCV) MEAN CELL HGB (test code = MCH) 31.4 pg 27.0-34.1 N MEAN CELL HGB CONCETRATION 33.2 % 32.2-35.7 N (test code = MCHC) RED CELL DISTRIBUTION WIDTH 13.6 % 12.1-15.2 N (test code = RDW) PLATELET COUNT (test code = 268 K/MM3 129-368 N PLT) MEAN PLATELET VOLUME (test code 10.1 fl 7.4-10.4 N = MPV) NEUTROPHIL % (test code = NT%) 48.7 % 43-75 N IMMATURE GRANULOCYTE % (test 0.4 % 0.0-2.0 N code = IG%) LYMPHOCYTE % (test code = LY%) 39.9 % 14-44 N MONOCYTE % (test code = MO%) 8.6 % 4-13 N EOSINOPHIL % (test code = EO%) 1.7 % 0-6 N BASOPHIL % (test code = BA%) 0.7 % 0-2 N NUCLEATED RBC % (test code = 0.0 % 0-1.0 N NRBC%) NEUTROPHIL # (test code = NT#) 4.00 K/mm3 2.0-7.6 N IMMATURE GRANULOCYTE # (test 0.03 x10 3/uL 0-0.03 N code = IG#) LYMPHOCYTE # (test code = LY#) 3.28 K/mm3 1.0-3.8 N MONOCYTE # (test code = MO#) 0.71 K/mm3 0.1-0.8 N EOSINOPHIL # (test code = EO#) 0.14 K/mm3 0.0-0.2 N BASOPHIL # (test code = BA#) 0.06 K/mm3 0.0-0.2 N NUCLEATED RBC # (test code = 0.00 K/mm3 0.0-0.1 N NRBC#) GLUCOSE BEDSIDE [id number] 18:41:00 Test Item Value Reference Range Interpretation Comments GLUCOSE BEDSIDE TESTING (test code = 83 MG/DL 60-99 N GLUBED) BASIC METABOLIC [id number] 15:04:00 Test Item Value Reference Range Interpretation Comments SODIUM (test code = 136 MMOL/L 137-145 L NA) POTASSIUM (test code = 3.9 MMOL/L 3.5-5.1 N K) CHLORIDE (test code = 97 MMOL/L 98-107 L CL) CARBON DIOXIDE (test 22 MMOL/L 22-30 N code = CO2) ANION GAP (test code = 21 MMOL/L 14-24 N GAP) GLUCOSE (test code = 183 MG/DL 74-106 H GLU) BLOOD UREA NITROGEN 30 MG/DL 7-17 H (test code = BUN) GLOMERULAR FILTRATION 6 Report ing units: RATE (test code = GFR) ml/mi n/1.73 m2 (Modified MDRD Formula)Referen ce Range: > or = 6 0 ml/min/1.73 m2 CREATININE (test code 6.90 MG/DL 0.52-1.04 H = CREAT) CALCIUM (test code = 9.1 MG/DL 8.4-10.2 N CA) BASIC METABOLIC [id number] 15:00:00 Test Item Value Reference Range Interpretation Comments SODIUM (test code = NA) 136 MMOL/L 137-145 L POTASSIUM (test code = K) 3.9 MMOL/L 3.5-5.1 N CHLORIDE (test code = CL) 97 MMOL/L 98-107 L CARBON DIOXIDE (test code = CO2) MMOL/L 22-30 GLUCOSE (test code = GLU) MG/DL 74-106 BLOOD UREA NITROGEN (test code = MG/DL 7-17 BUN) GLOMERULAR FILTRATION RATE (test code = GFR) CREATININE (test code = CREAT) MG/DL 0.52-1.04 CALCIUM (test code = CA) MG/DL 8.7-9.7 HCG SERUM [id number] 14:59:00 Test Item Value Reference Range Interpretation Comments HCG SERUM QUAL (test code = HCGQL) NEGATIVE NEGATIVE A PROTHROMBIN [id number] 14:56:00 Test Item Value Reference Range Interpretation Comments PROTHROMBIN TIME 9.8 SECONDS 9.6-11.6 N PATIENT (test code = PTP) INTERNATIONAL NORMAL 0.9 0.8-1.1 N The INR is to be RATIO (test code = INR) used only for monitoring oral anticoagulantth erap y. INDICATION I NR VALUE ---- ---- ---- -------1. Prophylaxis, de ep venous thrombos is, including hig h risk surgery. 2.0 - 3.0 2. Prophylaxis, de ep venous thrombos is, hip surgery, treatment for d eep venous thrombosis or pulmonary prevention of systemic emboli sm in patients wit h valvular heart disease, atrial fibrillation, tissue heart va lve, or acute myocar dial infarction. 2.0 - 3 .0 3. Mechanical prosthesis hear t valves, recurrent syste sunshine embolism. 3.0 - 4.5 PTT [id number] 14:56:00 Test Item Value Reference Range Interpretation Comments PTT ACTIVATED (test code = APTT) 27.9 SECONDS 22.0-33.0 N CBC W/AUTO [id number] 14:43:00 Test Item Value Reference Range Interpretation Comments WHITE BLOOD CELL (test code = 7.7 K/MM3 3.8-9.8 N WBC) RED BLOOD CELL (test code = 3.72 M/MM3 3.58-4.97 N RBC) HEMOGLOBIN (test code = HGB) 11.5 G/DL 11.2-14.9 N HEMATOCRIT (test code = HCT) 35.0 % 33.2-43.5 N MEAN CELL VOLUME (test code = 94 fL 80.7-99.1 N MCV) MEAN CELL HGB (test code = MCH) 30.9 pg 27.0-34.1 N MEAN CELL HGB CONCETRATION 32.9 % 32.2-35.7 N (test code = MCHC) RED CELL DISTRIBUTION WIDTH 14.4 % 12.1-15.2 N (test code = RDW) PLATELET COUNT (test code = 249 K/MM3 129-368 N PLT) MEAN PLATELET VOLUME (test code 10.0 fl 7.4-10.4 N = MPV) NEUTROPHIL % (test code = NT%) 75.2 % 43-75 H IMMATURE GRANULOCYTE % (test 0.6 % 0.0-2.0 N code = IG%) LYMPHOCYTE % (test code = LY%) 17.2 % 14-44 N MONOCYTE % (test code = MO%) 6.1 % 4-13 N EOSINOPHIL % (test code = EO%) 0.3 % 0-6 N BASOPHIL % (test code = BA%) 0.6 % 0-2 N NUCLEATED RBC % (test code = 0.0 % 0-1.0 N NRBC%) NEUTROPHIL # (test code = NT#) 5.82 K/mm3 2.0-7.6 N IMMATURE GRANULOCYTE # (test 0.05 x10 3/uL 0-0.03 H code = IG#) LYMPHOCYTE # (test code = LY#) 1.33 K/mm3 1.0-3.8 N MONOCYTE # (test code = MO#) 0.47 K/mm3 0.1-0.8 N EOSINOPHIL # (test code = EO#) 0.02 K/mm3 0.0-0.2 N BASOPHIL # (test code = BA#) 0.05 K/mm3 0.0-0.2 N NUCLEATED RBC # (test code = 0.00 K/mm3 0.0-0.1 N NRBC#) RAD, CHEST, 1 VIEW, NON [id number] 11:27:00Reason for exam:->r/o pneumoniaShould this be performed [...] MDReport Verified Date/Time: 07/18/2019 11:27:35 Reading Location: [facility] Radiology Reading Room XR chest 1 view portable / [id number] 11:27:00 Interface, External Ris In 07/18/2019 11:29 AM CSTFINAL REPORT RAD, CHEST, 1 VIEW, NON DEPT INDICATION: r/o pneumonia COMPARISON: July 16, 2019 FINDINGS: Portable frontal view of the chest. IMPRESSION: Support Lines: Stable left IJ dual-lumen central venous catheter. Lungs and pleura: Lungs are clear. No effusion. No pneumothorax.Heart and mediastinum: Stable contours.Additional findings: None. Signed: JR Mccollum Robert MDReport Verified Date/Time: 07/18/201911:27:35 Reading Location: [facility] Radiology [facility] [id number] 08:34:00 Test Item Value Reference Range Interpretation Comments POC-Glucose Meter (test 126 mg/dL 70-110 H : TE STED AT [facility] code = 1538) [address] [facility], 770 30: Yard Assistant/Techni tammy ID = [id number] for Lenora Kuo onregulo Lab Interpretation (test Abnormal code = 32625-0) [facility]-GLUCOSE [id number] 08:34:00 Test Item Value Reference Range Interpretation Comments POC-GLUCOSE METER 126 mg/dL 70-110 H : TESTED A T [facility] 6720 (BEAKER) (test code = [facility] Isabel [facility], 1538) [address]: Yard Assistant/Techni tammy ID = [id number] for Baldomero Carney ECG 12 [id number] 07:35:45Interface, External Ris In - 07/18/2019 7:35 AM CSTVentricular Rate 87 BPMAtrial Rate 87 BPMP-R Interval 136 msQRS Duration 72 msQ-T Interval 380 msQTC Calculation(Bazett) 457 msP [place] 68 degreesR [place] 17 degreesT [place] 65 degreesNormal sinus rhythmNormal ECGWhen compared with ECG of 19-MAR-2017 15:16,QT has shortenedConfirmed by MD BROCK, LAKSHMI ([id number]) on 07/18/2019 7:35:43 [facility] metabolic [id number] 06:56:00 Test Item Value Reference Range Interpretation Comments Sodium (test code = 134 meq/L 136-145 L 2951-2) Potassium (test code = 5.0 meq/L 3.5-5.1 2823-3) Chloride (test code = 103 meq/L 98-107 2075-0) CO2 (test code = 25 meq/L -29 2028-9) BUN (test code = 28 mg/dL 7-21 H 3094-0) Creatinine (test code = 5.40 mg/dL 0.57-1.25 H 2160-0) Glucose (test code = 146 mg/dL 70-105 H 2345-7) Calcium (test code = 8.8 mg/dL 8.4-10.2 55909-4) EGFR (test code = 9 mL/min/1.73 [place] [address]-3) NOT ACCURATE CREATININE CLEARANCE IN PREDICTING GLOMERULAR FILTRATION RATE . ESTIMATED GFR I S NOT APPLICABLE FOR DIALYSIS PATIEN TS. Lab Interpretation Abnormal (test code = 72502-2) [facility] METABOLIC [id number] 06:56:00 Test Item Value Reference Range Interpretation Comments SODIUM (BEAKER) 134 meq/L 136-145 L (test code = 381) POTASSIUM (BEAKER) 5.0 meq/L 3.5-5.1 (test code = 379) CHLORIDE (BEAKER) 103 meq/L 98-107 (test code = 382) CO2 (BEAKER) (test 25 meq/L -29 code = 355) BLOOD UREA NITROGEN 28 mg/dL 7-21 H (BEAKER) (test code = 354) CREATININE (BEAKER) 5.40 mg/dL 0.57-1.25 H (test code = 358) GLUCOSE RANDOM 146 mg/dL 70-105 H (BEAKER) (test code = 652) CALCIUM (BEAKER) 8.8 mg/dL 8.4-10.2 (test code = 697) EGFR (BEAKER) (test 9 mL/min/1.73 ESTIMAT ED GFR IS code = 1092) sq m NOT ACCURATE CREATININE CLEARANCE IN PREDICTING GLOMERULAR FILTRATION RATE . ESTIMATED GFR I S NOT APPLICABLE FOR DIALYSIS PATIEN TS. [id number] 06:45:00 Test Item Value Reference Range Interpretation Comments Magnesium (test code = 69028-0) 2.0 mg/dL 1.6-2.6 Lab Interpretation (test code = Normal 56899-0) [facility] Medicine[facility]2019-[facility] 06:45:00 Test Item Value Reference Range Interpretation Comments Phosphorus (test code = 2777-1) 4.6 mg/dL 2.3-4.7 Lab Interpretation (test code = Normal 51376-3) [facility] MedicinePHOSPHORUS2019-12-02 06:45:00 Test Item Value Reference Range Interpretation Comments PHOSPHORUS (BEAKER) (test code = 4.6 mg/dL 2.3-4.7 604) [id number] 06:45:00 Test Item Value Reference Range Interpretation Comments MAGNESIUM (BEAKER) (test code = 2.0 mg/dL 1.6-2.6 627) CBC with platelet count + automated [id number] 05:35:00 Test Item Value Reference Range Interpretation Comments WBC (test code = 6690-2) 13.0 3.5- 10.5 K/L H RBC (test code = 789-8) 3.80 3.93- 5.22 M/L L MCHC (test code = 786-4) 32.1 32.2- 35.5 GM/DL L Hematocrit (test code = 4544-3) 35.2 % 34.1-44.9 MCV (test code = 787-2) 92.6 fL 79.4-94.8 MCH (test code = 785-6) 29.7 pg 25.6-32.2 RDW (test code = 788-0) 13.6 % 11.7-14.4 Platelets (test code = 777-3) 233 150- 450 K/CU MM MPV (test code = 43467-1) 9.5 fL 9.4-12.3 nRBC (test code = 413) 0 0- 0 /100 WBC % Neutros (test code = 429) 70 % % Lymphs (test code = 430) 20 % % Monos (test code = 431) 7 % % Eos (test code = 432) 2 % % Baso (test code = 437) 1 % # Neutros (test code = 670) 9.09 1.56- 6.13 K/L H # Lymphs (test code = 414) 2.65 1.18- 3.74 K/L # Monos (test code = 415) 0.93 0.24- 0.36 K/L H # Eos (test code = 416) 0.24 0.04- 0.36 K/L # Baso (test code = 417) 0.07 0.01- 0.08 K/L Immature Granulocytes-Relative 0 % 0-1 (test code = 2801) Lab Interpretation (test code = Abnormal 69389-9) [facility] W/PLT COUNT & AUTO [id number] 05:35:00 Test Item Value Reference Range Interpretation Comments WHITE BLOOD CELL COUNT (BEAKER) 13.0 K/ L 3.5-10.5 H (test code = 775) RED BLOOD CELL COUNT (BEAKER) 3.80 M/ L 3.93-5.22 L (test code = 761) HEMOGLOBIN (BEAKER) (test code = 11.3 GM/DL 11.2-15.7 410) HEMATOCRIT (BEAKER) (test code = 35.2 % 34.1-44.9 411) MEAN CORPUSCULAR VOLUME (BEAKER) 92.6 fL 79.4-94.8 (test code = 753) MEAN CORPUSCULAR HEMOGLOBIN 29.7 pg 25.6-32.2 (BEAKER) (test code = 751) MEAN CORPUSCULAR HEMOGLOBIN CONC 32.1 GM/DL 32.2-35.5 L (BEAKER) (test code = 752) RED CELL DISTRIBUTION WIDTH 13.6 % 11.7-14.4 (BEAKER) (test code = 412) PLATELET COUNT (BEAKER) (test 233 K/CU MM 150-450 code = 756) MEAN PLATELET VOLUME (BEAKER) 9.5 fL 9.4-12.3 (test code = 754) NUCLEATED RED BLOOD CELLS 0 /100 WBC 0-0 (BEAKER) (test code = 413) NEUTROPHILS RELATIVE PERCENT 70 % (BEAKER) (test code = 429) LYMPHOCYTES RELATIVE PERCENT 20 % (BEAKER) (test code = 430) MONOCYTES RELATIVE PERCENT 7 % (BEAKER) (test code = 431) EOSINOPHILS RELATIVE PERCENT 2 % (BEAKER) (test code = 432) BASOPHILS RELATIVE PERCENT 1 % (BEAKER) (test code = 437) NEUTROPHILS ABSOLUTE COUNT 9.09 K/ L 1.56-6.13 H (BEAKER) (test code = 670) LYMPHOCYTES ABSOLUTE COUNT 2.65 K/ L 1.18-3.74 (BEAKER) (test code = 414) MONOCYTES ABSOLUTE COUNT (BEAKER) 0.93 K/ L 0.24-0.36 H (test code = 415) EOSINOPHILS ABSOLUTE COUNT 0.24 K/ L 0.04-0.36 (BEAKER) (test code = 416) BASOPHILS ABSOLUTE COUNT (BEAKER) 0.07 K/ L 0.01-0.08 (test code = 417) IMMATURE GRANULOCYTES-RELATIVE 0 % 0-1 PERCENT (BEAKER) (test code = 2801) Prothrombin time/[id number] 05:24:00 Test Item Value Reference Range Interpretation Comments Protime (test code = 12.2 11.9- 14.2 5902-2) seconds INR (test code = 1.0 <=5.9 6301-6) YAKELIN (test code = YAKELIN) Effective 01/12/2019: PT Reference Range ChangeNew: 11.9-14.2 Previous: 11.7-14.7 RECOMMENDED COUMADIN/WARFARIN INR THERAPY RANGESSTANDARD DOSE: 2.0-3.0 Includes: PROPHYLAXIS for venous thrombosis, systemic embolization; TREATMENT for venous thrombosis and/or pulmonary embolus.HIGH RISK: Target INR is 2.5-3.5 for patients wiht mechanical heart valves. Lab Interpretation Normal (test code = 42819-7) [facility] MedicinePROTHROMBIN TIME/[id number] 05:24:00 Test Item Value Reference Range Interpretation Comments PROTIME (BEAKER) (test code = 12.2 seconds 11.9-14.2 759) INR (BEAKER) (test code = 370) 1.0 <=5.9 Effective 01/12/2019: PT Reference Range ChangeNew: 11.9-14.2 Previous: 11.7- 14.7RECOMMENDED COUMADIN/WARFARIN INR THERAPY RANGESSTANDARD DOSE: 2.0-3.0 Includes: PROPHYLAXIS for venous thrombosis, systemic embolization; TREATMENT for venous thrombosis and/or pulmonary embolus.HIGH RISK: Target INR is2.5-3.5 for patients wiht mechanical heart valves.POCT-GLUCOSE [id number] 21:08:00 Test Item Value Reference Range Interpretation Comments POC-GLUCOSE METER 191 mg/dL 70-110 H : TESTED A T [facility] 6720 ([employer]) (test code = [facility], 1538) [address]: Yard Assistant/Techni tammy ID = [id number] for Keith Quintero POCT-GLUCOSE [id number] 17:20:00 Test Item Value Reference Range Interpretation Comments POC-GLUCOSE METER 168 mg/dL 70-110 H : TESTED A T [facility] 6720 (Image Engine DesignAKER) (test code = [facility] Demo Lesson [facility], 1538) [address]: Yard Assistant/Techni tammy ID = [id number] for HU NT, MAVIS POCT-GLUCOSE [id number] 12:49:00 Test Item Value Reference Range Interpretation Comments POC-GLUCOSE METER 221 mg/dL 70-110 H : TESTED A T [facility] 6720 (BEAKER) (test code = [facility] Demo Lesson [facility], 1538) [address]: Yard Assistant/Techni tammy ID = [id number] for HU NT, MAVIS Screen, [id number] 11:54:00 Test Item Value Reference Range Interpretation Comments Preg Test, Ur (test code = 2112-1) Negative [facility] GardensPREG[facility]NCY SCREEN, [id number] 11:54:00 Test Item Value Reference Range Interpretation Comments TEST URINE (BEAKER) (test Negative code = 583) POCT-GLUCOSE [id number] 09:11:00 Test Item Value Reference Range Interpretation Comments POC-GLUCOSE METER 112 mg/dL 70-110 H : TESTED A T [facility] 6720 (BEAKER) (test code = [facility] Dem[employer] Less[employer] [facility], 1538) [address]: Yard Assistant/Techni tammy ID = [id number] for MAVIS GARRIDO BASIC METABOLIC [id number] 06:50:00 Test Item Value Reference Range Interpretation Comments SODIUM (BEAKER) 136 meq/L 136-145 (test code = 381) POTASSIUM (BEAKER) 4.8 meq/L 3.5-5.1 (test code = 379) CHLORIDE (BEAKER) 103 meq/L 98-107 (test code = 382) CO2 (BEAKER) (test 26 meq/L 22-29 code = 355) BLOOD UREA NITROGEN 16 mg/dL 7-21 (BEAKER) (test code = 354) CREATININE (BEAKER) 3.77 mg/dL 0.57-1.25 H (test code = 358) GLUCOSE RANDOM 120 mg/dL 70-105 H (BEAKER) (test code = 652) CALCIUM (BEAKER) 8.9 mg/dL 8.4-10.2 (test code = 697) EGFR (BEAKER) (test 13 mL/min/1.73 ESTIMA NHAN GFR IS code = 1092) sq m NOT ACCURATE CREATININE CLEARANCE IN PREDICTING GLOMERULAR FILTRATION RATE . ESTIMATED GFR I S NOT APPLICABLE FOR DIALYSIS PATIEN TS. [id number] 06:38:00 Test Item Value Reference Range Interpretation Comments PHOSPHORUS (BEAKER) (test code = 3.9 mg/dL 2.3-4.7 604) [id number] 06:38:00 Test Item Value Reference Range Interpretation Comments MAGNESIUM (BEAKER) (test code = 1.9 mg/dL 1.6-2.6 627) PROTHROMBIN TIME/[id number] 06:12:00 Test Item Value Reference Range Interpretation Comments PROTIME (BEAKER) (test code = 12.1 seconds 11.9-14.2 759) INR (BEAKER) (test code = 370) 0.9 <=5.9 Effective 01/12/2019: PT Reference Range ChangeNew: 11.9-14.2 Previous: 11.7- 14.7RECOMMENDED COUMADIN/WARFARIN INR THERAPY RANGESSTANDARD DOSE: 2.0-3.0 Includes: PROPHYLAXIS for venous thrombosis, systemic embolization; TREATMENT for venous thrombosis and/or pulmonary embolus.HIGH RISK: Target INR is2.5-3.5 for patients wiht mechanical heart valves.CBC W/PLT COUNT & AUTO [id number] 06:06:00 Test Item Value Reference Range Interpretation Comments WHITE BLOOD CELL COUNT (BEAKER) 8.3 K/ L 3.5-10.5 (test code = 775) RED BLOOD CELL COUNT (BEAKER) 3.62 M/ L 3.93-5.22 L (test code = 761) HEMOGLOBIN (BEAKER) (test code = 11.0 GM/DL 11.2-15.7 L 410) HEMATOCRIT (BEAKER) (test code = 33.0 % 34.1-44.9 L 411) MEAN CORPUSCULAR VOLUME (BEAKER) 91.2 fL 79.4-94.8 (test code = 753) MEAN CORPUSCULAR HEMOGLOBIN 30.4 pg 25.6-32.2 (BEAKER) (test code = 751) MEAN CORPUSCULAR HEMOGLOBIN CONC 33.3 GM/DL 32.2-35.5 (BEAKER) (test code = 752) RED CELL DISTRIBUTION WIDTH 13.9 % 11.7-14.4 (BEAKER) (test code = 412) PLATELET COUNT (BEAKER) (test 228 K/CU MM 150-450 code = 756) MEAN PLATELET VOLUME (BEAKER) 9.5 fL 9.4-12.3 (test code = 754) NUCLEATED RED BLOOD CELLS 0 /100 WBC 0-0 (BEAKER) (test code = 413) NEUTROPHILS RELATIVE PERCENT 60 % (BEAKER) (test code = 429) LYMPHOCYTES RELATIVE PERCENT 30 % (BEAKER) (test code = 430) MONOCYTES RELATIVE PERCENT 8 % (BEAKER) (test code = 431) EOSINOPHILS RELATIVE PERCENT 2 % (BEAKER) (test code = 432) BASOPHILS RELATIVE PERCENT 1 % (BEAKER) (test code = 437) NEUTROPHILS ABSOLUTE COUNT 4.92 K/ L 1.56-6.13 (BEAKER) (test code = 670) LYMPHOCYTES ABSOLUTE COUNT 2.43 K/ L 1.18-3.74 (BEAKER) (test code = 414) MONOCYTES ABSOLUTE COUNT (BEAKER) 0.68 K/ L 0.24-0.36 H (test code = 415) EOSINOPHILS ABSOLUTE COUNT 0.15 K/ L 0.04-0.36 (BEAKER) (test code = 416) BASOPHILS ABSOLUTE COUNT (BEAKER) 0.05 K/ L 0.01-0.08 (test code = 417) IMMATURE GRANULOCYTES-RELATIVE 0 % 0-1 PERCENT (BEAKER) (test code = 2801) [id number] 04:27:00 Test Item Value Reference Range Interpretation Comments RPR (test code = 69968-6) Nonreactive Nonreactive Lab Interpretation (test code = Normal 32471-4) [facility] 04:27[facility]00 Test Item Value Reference Range Interpretation Comments RPR SCREEN (BEAKER) (test code = Nonreactive Nonreactive 420) MR, MRA, BRAIN, WITHOUT [id number] 03:28:00Reason for exam:- >StrokeWhat is the patient's [...] 07/17/2019 03:28:33 MR, MRA, NECK, WITHOUT IV [id number] 03:28:00FINAL REPORT MR, BRAIN, WITHOUT CONTRAST, MR, [...] Verified Date/Time: 07/17/2019 03:28:33 MR, BRAIN, WITHOUT [id number] 03:28:00 Reason for exam:->StrokeWhat is the patient's [...] Yg Conley MDReport Verified Date/Time: 07/17/2019 03:28:33 MR MRA head without [id number] 03:28:00 Interface, External Ris In - 07/17/2019 4:57 AM CSTFINAL REPORT MR, BRAIN, WITHOUT CONTRAST, MR, MRA, NECK, WITHOUT IV CONTRAST, MR, MRA, BRAIN, WITHOUT [...] thalamus posterior margin associated with T2 FLAIR hyperinten sity. No definite diminished ADC. Moderate cerebral white matter T2 FLAIR hyperintensities. Pontine T2 hyperintensities noted. Scattered remote infarcts are present. Moderate brain parenchymal volume loss with proportional prominence. No hydrocephalus. No acute intracranial hemorrhage or mass or midlin e shift. Bilateral globe deformities. Mild paranasal sinus callosal thickening. MRA BRAIN:Internal carotid arteries: Patent. Bottles supraclinoid segment moderate stenoses. Bilateral posterior communicating arteries are present.Middle cerebral arteries: Patent to distal branches.Anterior cerebral arteries: High- grade stenosis of right A1 segment. Patent left A1 segment. Patent anterior communicating artery distal ICAs.Basilar system: Patent vertebrobasilar system.Posterior cerebral arteries:Patent beyond the quadrigeminal segments.Additional findings: None. MRA NECK:Common carotid arteries: Originsare not imaged. Otherwise patent. Bifurcations: No flow-limiting stenosis. Cervical internal carotidarteries: No flow limiting stenosis.Vertebral arteries: Origins not [...] Yg Conley MDReport Verified Date/Time: 07/17/2019 03:28:33 [facility] neck without [id number] 03:28:00Interface, External Ris In - 07/17/2019 4:57 AM CSTFINAL REPORT MR, BRAIN, WITHOUT CONTRAST, MR, MRA, NECK, WITHOUT IV CONTRAST, MR, MRA, BRAIN, WITHOUT [...] are present. Moderate brain parenchymal volume loss with proportional prominence. No hydrocephalus. No acute intracranial hemorrhage or mass or midlin e shift. Bilateral globe deformities. Mild paranasal sinus callosal thickening. MRA BRAIN:Internal carotid arteries: Patent. Bottles supraclinoid segment moderate stenoses. Bilateral posterior communicating arteries are present.Middle cerebral arteries: Patent to distal branches.Anterior cerebral arteries: High- grade stenosis of right A1 segment. Patent left A1 segment. Patent anterior communicating artery distal ICAs.Basilar system: Patent vertebrobasilar system.Posterior cerebral arteries:Patent beyond the quadrigeminal segments.Additional findings: None. MRA NECK:Common carotid arteries: Originsare not imaged. Otherwise patent. Bifurcations: No flow-limiting stenosis. Cervical internal carotidarteries: No flow limiting stenosis.Vertebral arteries: Origins not [...] Yg Conley MDReport Verified Date/Time: 07/17/2019 03:28:33 [facility]MR brain without IV [id number] 03:28:00Interface, External Ris In - 07/17/2019 4:57 AM CSTFINAL REPORT MR, BRAIN, WITHOUT CONTRAST, MR, MRA, NECK, WITHOUT IV CONTRAST, MR, MRA, BRAIN, WITHOUT [...] are present. Moderate brain parenchymal volume loss with proportional prominence. No hydrocephalus. No acute intracranial hemorrhage or mass or midlin e shift. Bilateral globe deformities. Mild paranasal sinus callosal thickening. MRA BRAIN:Internal carotid arteries: Patent. Bottles supraclinoid segment moderate stenoses. Bilateral posterior communicating arteries are present.Middle cerebral arteries: Patent to distal branches.Anterior cerebral arteries: High- grade stenosis of right A1 segment. Patent left A1 segment. Patent anterior communicating artery distal ICAs.Basilar system: Patent vertebrobasilar system.Posterior cerebral arteries:Patent beyond the quadrigeminal segments.Additional findings: None. MRA NECK:Common carotid arteries: Originsare not imaged. Otherwise patent. Bifurcations: No flow-limiting stenosis. Cervical internal carotidarteries: No flow limiting stenosis.Vertebral arteries: Origins not [...] Yg Conley MDReport Verified Date/Time: 07/17/2019 03:28:33 [facility] CenterPO[facility] [id number] 21:16:00 Test Item Value Reference Range Interpretation Comments POC-GLUCOSE METER 143 mg/dL 70-110 H : TESTED A T [facility] 6720 (BEAKER) (test code = [employer] [facility], 1538) [address]: Yard Assistant/Techni tammy ID = [id number] for JANELL GEORGE POCT-GLUCOSE [id number] 17:33:00 Test Item Value Reference Range Interpretation Comments POC-GLUCOSE METER 108 mg/dL 70-110 : TESTED A T [facility] 6720 (BEAKER) (test code = [employer] [facility], 1538) [address]: Yard Assistant/Techni tammy ID = [id number] for TAVON DUVALL POCT-GLUCOSE [id number] 17:25:00 Test Item Value Reference Range Interpretation Comments POC-GLUCOSE METER 155 mg/dL 70-110 H : TESTED A T [facility] 6720 (BEAKER) (test code = [employer] [facility], 1538) 27[address]: Yard Assistant/Techni tammy ID = [id number] for SIMON CHO HEMODIALYSIS [id number] 17:23:31Tavon Mcduffie RN 07/16/2019 5:24 PMVerified HD treatment consent signed at chart, orders and latest lab results. Tolerated and completed 3.5hours HD treatment, Denies any discomfort or pain, Not in distress.UF net fluid removed 1.0-liters. No complaints made presented.Packed CVC both port with heparin 5000 units/ml and secured access with blue caps, gauze and tape. Blood sugar checked, 108.Report given to primary nurse Lab Results Component Value Date GLUCOSE 91 07/16/2019 CALCIUM 8.6 07/16/2019 NA 135 (L) 07/16/2019 K 5.0 07/16/2019 CO2 21 (L) 07/16/2019 CL 104 07/16/2019 BUN 46 (H) 07/16/2019 CREATININE 6.99 (H) 07/16/2019 Lab Results Component Value Date WBC 6.9 07/16/2019 HGB 10.7 (L) 07/16/2019 HCT 33.5 (L) 07/16/2019 MCV 93.1 07/16/2019 PLT 235 07/16/2019 Lab Results Component Value Date HEPBSAG Nonreactive 07/16/2019[facility] surface [id number] 14:30:00 Test Item Value Reference Range Interpretation Comments HBsAg Screen (test code = 5195-3) Nonreactive Nonreactive Lab Interpretation (test code = Normal 86100-1) [facility] B SURFACE [id number] 14:30:00 Test Item Value Reference Range Interpretation Comments HEPATITIS B SURFACE ANTIGEN (2) Nonreactive Nonreactive (BEAKER) (test code = 2585) 2D Echo W/Doppler(CW/PW/Color)2019-07-16 14:11:04Ejection FractionSLEH ECHO HEARTLAB MKCKESSON CPACSInterface, External Ris In - 07/16/2019 2:11 PM C STTransthoracic Echocardiography Report (TTE) Demographics Patient Name GIGI CONROY Date of Study 07/16/2019 Gender Female Visit Number [id number] Race Unknown Room Number 7605 Number Date of 1975 Referring Arvin Ann Physician Age 43 year(s) Dispatcher Clerk Daja Arthur, [facility] Cake Former Yanna Mcdonald Interpreting MD Oscar Silver Physician Procedure Type of Study TTE procedure:2DECHO W DOPPLER(CW/PW/COLOR) (TATA) Indications:Stroke work up.Clinical HistoryHGB 10.7HCT 33.5 %Multiple CVA'sHypothyroidismDiabetesESRDThyroid CancerContrast Medium: Definity. Amount - 3 mlHeight: 64 inches Weight: 99.79 kg (220 lbs) BSA: 2.04 m^2 BMI: 37.76 kg/m^2HR: 76 bpm BP: 104/56 mmHg Summary 1. Normal LV size and function. LV EF is normal (>60%) . 2. Normal RV size and function. 3. Grade 1 diastolic dysfunction (impaired relaxation and low-normal LA pressure). 4. Estimated peak systolic PA pressure is 20-25 mmHg +RA pressure. (RA pressure indeterminate on this exam) 5. IV saline contrast injection was negative for a PFO (patent foramen ovale) at rest and post Valsalva . Signature Findings Left Ventricle The left ventricle is chamber size (by PSLAX dimension) is normal (female - LVIDd 3.8-5.2cm) . Normal LV wall thickness. All of the LV segments contract normally . Global LV systolic function normal . LVEF by Soliman's method of disk assessment is normal (>60%) . Intracavitary gradient is 20mmHg at rest. Grade 1 diastolic dysfunction (impaired relaxation and low-normal LA pressure). Left Atrium LA size is normal (16- 34 ml/m2) . Right VentricleRV chamber size appears mildly enlarged . Global RV systolic function is normal . Right Atrium RA cavity size is normal . Atrial Septum IV saline contrast injection was negative for a PFO (patent foramen ovale) at rest and post Valsalva . Aortic Valve Mild AoV cusp thickening. Mitral Valve Mild MV leaflet thickening. Mild mitral annular calcification. Tricuspid Valve A trace of tricuspid regurgitation. Estimated peak systolic PA pressure is 20-25 mmHg + RA pressure. (RA pressure indeterminate on this exam) Pulmonic Valve PV is not well visualized; function appears normal by Doppler visualized. Aorta Aortic root size (SInus of Valsalva diameter) is normal . Pericardium No significant pericardial effusion is visualized. IVC/SVC/PA/PV/Pleural The right upper pulmonary vein (RUPV) is normal . The estimated RA pressure by IVC dynamics indeterminate . The inferior vena cava is not visualized. Chambers/Structures [...] Mitral Valve MV Peak E-Wave: 0.77 m/s MV Peak A-Wave: 1.02 m/s E/A Ratio: 0.76 Peak Gradient: 2.37 mmHg Deceleration Time: 304.9 msec MV Jack. Peak: Tissue Doppler E' Lateral Velocity: 0.12 m/s E/E': 6.26 Aortic Valve Peak Velocity: 2.03 m/s Mean Velocity: 1.44 m/s Peak Gradient: 16.47 mmHg Mean Gradient: 9.29 mmHg AV Area (continuity): 2.15 cm^2 AV VTI: 38 cm AV DVI: 0.68 LVOT Peak Velocity: 1.15 m/s Peak Gradient: 5.3 mmHg Mean Velocity: 0.81 m/s Mean Gradient: 2.93 mmHg LVOT Diameter: 2 cm LVOT VTI: 26 cm LVOT Area: 3.14 cm^2 LVOT SV:81.64 ml LVOT CO: 6.2 l/min LVOT CI: 3.04 l/min/m^2 Tricuspid Valve TR Velocity: 2.31 m/s TR Gradient: 21.42 mmHgKaiser Permanente Medical CenterCT- GLUCOSE [id number] 12:17:00 Test Item Value Reference Range Interpretation Comments POC-GLUCOSE METER 146 mg/dL 70-110 H : TESTED A T [facility] 6720 ([employer] DesignNANCI) (test code = [facility], 1538) [address]: Yard Assistant/Techni tammy ID = [id number] for MAVIS GARRIDO BASIC METABOLIC [id number] 09:26:00 Test Item Value Reference Range Interpretation Comments SODIUM (BEAKER) 135 meq/L 136-145 L (test code = 381) POTASSIUM (BEAKER) 5.0 meq/L 3.5-5.1 (test code = 379) CHLORIDE (BEAKER) 104 meq/L 98-107 (test code = 382) CO2 (BEAKER) (test 21 meq/L 22-29 L code = 355) BLOOD UREA NITROGEN 46 mg/dL 7-21 H (BEAKER) (test code = 354) CREATININE (BEAKER) 6.99 mg/dL 0.57-1.25 H (test code = 358) GLUCOSE RANDOM 91 mg/dL 70-105 (BEAKER) (test code = 652) CALCIUM (BEAKER) 8.6 mg/dL 8.4-10.2 (test code = 697) EGFR (BEAKER) (test 6 mL/min/1.73 ESTIMAT ED GFR IS code = 1092) sq m NOT ACCURATE CREATININE CLEARANCE IN PREDICTING GLOMERULAR FILTRATION RATE . ESTIMATED GFR I S NOT APPLICABLE FOR DIALYSIS PATIEN TS. POCT-GLUCOSE [id number] 08:27:00 Test Item Value Reference Range Interpretation Comments POC-GLUCOSE METER 106 mg/dL 70-110 : TESTED A T [facility] 6720 (BEAKER) (test code = [facility], 1538) [address]: Yard Assistant/Techni tammy ID = [id number] for SIMON CHO POCT-GLUCOSE [id number] 07:46:00 Test Item Value Reference Range Interpretation Comments POC-GLUCOSE METER 171 mg/dL 70-110 H : TESTED A T [facility] 6720 (BEAKER) (test code [facility], = 1538) [address]: Yard Assistant/Techni tammy ID = [id number] for YASMINE VO RAD, CHEST, 1 VIEW, NON [id number] 07:36:00Reason for exam:- >baselineShould this be performed [...] MDReport Verified Date/Time: 07/16/2019 07:36:01 Reading Location: [facility] B1 C013Y CT Body Reading Room Hemoglobin [id number] 06:42:00 Test Item Value Reference Range Interpretation Comments Hemoglobin A1C (test code = 4548-4) 9.5 % 4.3-6.1 H Lab Interpretation (test code = Abnormal 75403-1) [facility] MedicineHEMOGLOBIN [id number] 06:42:00 Test Item Value Reference Range Interpretation Comments HEMOGLOBIN A1C (BEAKER) (test code = 9.5 % 4.3-6.1 H 368) BASIC METABOLIC [id number] 06:27:00 Test Item Value Reference Range Interpretation Comments SODIUM (BEAKER) 131 meq/L 136-145 L (test code = 381) POTASSIUM (BEAKER) 6.5 meq/L 3.5-5.1 HH No hemoly sis (test code = 379) CHLORIDE (BEAKER) 100 meq/L 98-107 (test code = 382) CO2 (BEAKER) (test 23 meq/L 22-29 code = 355) BLOOD UREA NITROGEN 45 mg/dL 7-21 H (BEAKER) (test code = 354) CREATININE (BEAKER) 6.82 mg/dL 0.57-1.25 H (test code = 358) GLUCOSE RANDOM 535 mg/dL 70-105 HH (BEAKER) (test code = 652) CALCIUM (BEAKER) 8.2 mg/dL 8.4-10.2 L (test code = 697) EGFR (BEAKER) (test 7 mL/min/1.73 ESTIMAT ED GFR IS code = 1092) sq m NOT ACCURATE CREATININE CLEARANCE IN PREDICTING GLOMERULAR FILTRATION RATE . ESTIMATED GFR I S NOT APPLICABLE FOR DIALYSIS PATIEN TS. HIV-1 Antigen with HIV-1/2 [id number] 05:52:00 Test Item Value Reference Range Interpretation Comments HIV-1 Antigen with HIV 1&2 Nonreactive Nonreactive Antibody (test code = 64400-8) Lab Interpretation (test code = Normal 48133-3) [facility] MedicineHIV-1 ANTIGEN WITH HIV-1/2 [id number] 05:52:00 Test Item Value Reference Range Interpretation Comments HIV-1 ANTIGEN WITH HIV 1\T\2 Nonreactive Nonreactive ANTIBODY (2) (BEAKER) (test code = 2586) POCT-GLUCOSE [id number] 05:38:00 Test Item Value Reference Range Interpretation Comments POC-GLUCOSE METER 420 mg/dL 70-110 HH : Notified RN/MD: TESTED (BEAKER) (test code AT [facility] 67[address] = 1538) [place] [address] 30: Yard Assistant/Techni tammy ID = [id number] for YASMINE VO TSH/Free T4 If [id number] 05:11:00 Test Item Value Reference Range Interpretation Comments TSH (test code = 64810-4) 0.87 0.35- 4.94 uIU/mL Lab Interpretation (test code = Normal 78297-9) [facility] MedicineVitamin B12 and [id number] 05:11:00 Test Item Value Reference Range Interpretation Comments Vitamin B12 (test code = 2132-9) 525 pg/mL 213-816 Folate (test code = 2284-8) 6.5 ng/mL >=7.0 L Lab Interpretation (test code = Abnormal 58326-9) [facility] MedicineTSH/FREE T4 IF [id number] 05:11:00 Test Item Value Reference Range Interpretation Comments THYROID STIMULATING HORMONE 0.87 uIU/mL 0.35-4.94 (BEAKER) (test code = 772) VITAMIN B12 AND [id number] 05:11:00 Test Item Value Reference Range Interpretation Comments VITAMIN B12 (BEAKER) (test code = 525 pg/mL 213-816 774) FOLATE (BEAKER) (test code = 362) 6.5 ng/mL >=7.0 L BASIC METABOLIC [id number] 04:57:00 Test Item Value Reference Range Interpretation Comments SODIUM (BEAKER) 130 meq/L 136-145 L (test code = 381) POTASSIUM (BEAKER) 6.7 meq/L 3.5-5.1 HH No hemoly sis (test code = 379) CHLORIDE (BEAKER) 99 meq/L 98-107 (test code = 382) CO2 (BEAKER) (test 23 meq/L 22-29 code = 355) BLOOD UREA NITROGEN 44 mg/dL 7-21 H (BEAKER) (test code = 354) CREATININE (BEAKER) 6.74 mg/dL 0.57-1.25 H (test code = 358) GLUCOSE RANDOM 616 mg/dL 70-105 HH (BEAKER) (test code = 652) CALCIUM (BEAKER) 8.2 mg/dL 8.4-10.2 L (test code = 697) EGFR (BEAKER) (test 7 mL/min/1.73 ESTIMAT ED GFR IS code = 1092) sq m NOT ACCURATE CREATININE CLEARANCE IN PREDICTING GLOMERULAR FILTRATION RATE . ESTIMATED GFR I S NOT APPLICABLE FOR DIALYSIS PATIEN TS. Lipid [id number] 04:47:00 Test Item Value Reference Range Interpretation Comments Triglycerides (test 100 mg/dL code = 2571-8) Cholesterol (test code 177 mg/dL = 2093-3) HDL (test code = 48 mg/dL 5-9) LDL Calculated (test 109 mg/dL code = 81250-1) YAKELIN (test code = YAKELIN) Triglyceride Reference Range: Low Risk <150 Borderline 150-199 High Risk 200-499 Very High Risk >=500 Cholesterol Reference Range: Low Risk <200 Borderline 200-239 High Risk >240 HDL Cholesterol Reference Range: Low Risk >=60 High Risk <40 LDL Cholesterol Reference Range: Optimal <100 Near Optimal 100-129 Borderline 130-159 High 160-189 Very High >=190 [facility] [id number] 04:47:00 Test Item Value Reference Range Interpretation Comments Protein, Total (test code = 2885-2) 6.3 6.0- 8.3 gm/dL Albumin (test code = 54502-9) 3.0 g/dL 3.5-5 L Total Bilirubin (test code = 0.4 mg/dL 0.2-1.2 1974-2) Bilirubin, Direct (test code = 0.2 mg/dL 0.1-0.5 1967-7) Alkaline Phosphatase (test code = 182 U/L 40-150 H 6768-6) AST (test code = 1920-8) 63 U/L 5-34 H ALT (test code = 1742-6) 99 U/L 6-55 H Lab Interpretation (test code = Abnormal 99324-3) [facility] MedicinePHOSPHORUS2019-11-30 04:47:00 Test Item Value Reference Range Interpretation Comments PHOSPHORUS (BEAKER) (test code = 5.5 mg/dL 2.3-4.7 H 604) [id number] 04:47:00 Test Item Value Reference Range Interpretation Comments MAGNESIUM (BEAKER) (test code = 2.0 mg/dL 1.6-2.6 627) LIPID [id number] 04:47:00 Test Item Value Reference Range Interpretation Comments TRIGLYCERIDES (BEAKER) (test code = 100 mg/dL 540) CHOLESTEROL (BEAKER) (test code = 177 mg/dL 631) HDL CHOLESTEROL (BEAKER) (test code 48 mg/dL = 976) LDL CHOLESTEROL CALCULATED (BEAKER) 109 mg/dL (test code = 633) Triglyceride Reference Range: Low Risk <150 Borderline 150-199 High Risk 200-499 Very High Risk >=500Cholesterol Reference Range: Low Risk <200 Borderline 200-239 High Risk >240HDL Cholesterol Reference Range: Low Risk >=60 High Risk <40LDL Cholesterol Reference Range: Optimal <100 Near Optimal 100-129 Borderline 130-159 High 160-189 Very High >=190HEPATIC FUNCTION [id number] 04:47:00 Test Item Value Reference Range Interpretation Comments TOTAL PROTEIN (BEAKER) (test code = 6.3 gm/dL 6.0-8.3 770) ALBUMIN (BEAKER) (test code = 1145) 3.0 g/dL 3.5-5.0 L BILIRUBIN TOTAL (BEAKER) (test code 0.4 mg/dL 0.2-1.2 = 377) BILIRUBIN DIRECT (BEAKER) (test 0.2 mg/dL 0.1-0.5 code = 706) ALKALINE PHOSPHATASE (BEAKER) (test 182 U/L 40-150 H code = 346) AST (SGOT) (BEAKER) (test code = 63 U/L 5-34 H 353) ALT (SGPT) (BEAKER) (test code = 99 U/L 6-55 H 347) PROTHROMBIN [id number] 04:11:00 Test Item Value Reference Range Interpretation Comments PROTIME (BEAKER) (test code = 12.3 seconds 11.9-14.2 759) INR (BEAKER) (test code = 370) 1.0 <=5.9 Effective 01/12/2019: PT Reference Range ChangeNew: 11.9-14.2 Previous: 11.7- 14.7RECOMMENDED COUMADIN/WARFARIN INR THERAPY RANGESSTANDARD DOSE: 2.0-3.0 Includes: PROPHYLAXIS for venous thrombosis, systemic embolization; TREATMENT for venous thrombosis and/or pulmonary embolus.HIGH RISK: Target INR is2.5-3.5 for patients wiht mechanical heart valves.CBC W/PLT COUNT & AUTO [id number] 04:03:00 Test Item Value Reference Range Interpretation Comments WHITE BLOOD CELL COUNT (BEAKER) 6.9 K/ L 3.5-10.5 (test code = 775) RED BLOOD CELL COUNT (BEAKER) 3.60 M/ L 3.93-5.22 L (test code = 761) HEMOGLOBIN (BEAKER) (test code = 10.7 GM/DL 11.2-15.7 L 410) HEMATOCRIT (BEAKER) (test code = 33.5 % 34.1-44.9 L 411) MEAN CORPUSCULAR VOLUME (BEAKER) 93.1 fL 79.4-94.8 (test code = 753) MEAN CORPUSCULAR HEMOGLOBIN 29.7 pg 25.6-32.2 (BEAKER) (test code = 751) MEAN CORPUSCULAR HEMOGLOBIN CONC 31.9 GM/DL 32.2-35.5 L (BEAKER) (test code = 752) RED CELL DISTRIBUTION WIDTH 13.8 % 11.7-14.4 (BEAKER) (test code = 412) PLATELET COUNT (BEAKER) (test 235 K/CU MM 150-450 code = 756) MEAN PLATELET VOLUME (BEAKER) 9.9 fL 9.4-12.3 (test code = 754) NUCLEATED RED BLOOD CELLS 0 /100 WBC 0-0 (BEAKER) (test code = 413) NEUTROPHILS RELATIVE PERCENT 66 % (BEAKER) (test code = 429) LYMPHOCYTES RELATIVE PERCENT 23 % (BEAKER) (test code = 430) MONOCYTES RELATIVE PERCENT 8 % (BEAKER) (test code = 431) EOSINOPHILS RELATIVE PERCENT 2 % (BEAKER) (test code = 432) BASOPHILS RELATIVE PERCENT 1 % (BEAKER) (test code = 437) NEUTROPHILS ABSOLUTE COUNT 4.55 K/ L 1.56-6.13 (BEAKER) (test code = 670) LYMPHOCYTES ABSOLUTE COUNT 1.61 K/ L 1.18-3.74 (BEAKER) (test code = 414) MONOCYTES ABSOLUTE COUNT (BEAKER) 0.58 K/ L 0.24-0.36 H (test code = 415) EOSINOPHILS ABSOLUTE COUNT 0.12 K/ L 0.04-0.36 (BEAKER) (test code = 416) BASOPHILS ABSOLUTE COUNT (BEAKER) 0.05 K/ L 0.01-0.08 (test code = 417) IMMATURE GRANULOCYTES-RELATIVE 0 % 0-1 PERCENT (BEAKER) (test code = 2801) POCT-GLUCOSE [id number] 03:47:00 Test Item Value Reference Range Interpretation Comments POC-GLUCOSE METER > mg/dL 70-110 HH : Notified RN/MD: TESTED (BEAKER) (test code = AT [facility] [address] [facility] 1538) [place] [address] 30: Yard Assistant/Techni tammy ID = [id number] for SYLVIA JONES FACTOR 5 LEIDEN PCR (THROMBOTIC RISK)2017-03-24 19:24:00 Test Item Value Reference Range Interpretation Comments FACTOR V LEIDEN Negative for the R506Q (BEAKER) (test code = (Factor V Leiden) 718) mutation [id number] Martínez Wang MD (BEAKER) (test code = (electronic signature) 4611) This test is a genotyping assay which [...] developed and its performance characteristics determined bythe [facility], Section of Molecular Pathology. It has not been cleared or approved by the U.S. Food and Drug Administration (FDA), since FDA approval is not requ ired for clinical use of the test. Validation was done as required by the Clinical Laboratory Improvement Amendments of 1988.POCT-GLUCOSE [id number] 07:28:00 Test Item Value Reference Range Interpretation Comments POC-GLUCOSE METER 200 mg/dL 70-[address] [facility] 6720 [facility] (test code = [address] [place] 1538) [address] POCT-GLUCOSE [id number] 21:18:00 Test Item Value Reference Range Interpretation Comments POC-GLUCOSE METER 211 mg/dL 70-[address] [facility] 67 ([facility]) (test code = [place] [facility] 1538) [address] PROTEIN, RANDOM [id number] 19:43:00 Test Item Value Reference Range Interpretation Comments PROTEIN, URINE (BEAKER) (test code 286 mg/dL 0-14 H = 1569) CREATININE, RANDOM [id number] 18:27:00 Test Item Value Reference Range Interpretation Comments CREATININE URINE (BEAKER) (test 29.3 mg/dL code = 375) Reference Range: No NormalsDILUTE SHIRA VIPER VENOM (DRVV)2017-03-19 12:47:00 Test Item Value Reference Range Interpretation Comments PROTIME (BEAKER) (test 11.3 seconds 11.7-14.7 L code = 759) INR (BEAKER) (test code 0.8 <=5.9 = 370) PARTIAL THROMBOPLASTIN 28.0 seconds 22.5-36.0 TIME (BEAKER) (test code = 760) DRVV INTERPRETATION Normal DRVV Results (BEAKER) (test code = 2406) DRVV INTERPRETATION Normal Hexagonal (BEAKER) (test code = Phospholipid 502418) [id number] Martínez Wang MD (BEAKER) (test code = (electronic 2610) signature) DRVV SCREEN RATIO 0.84 <1.20 (BEAKER) (test code = 2657) Effective 12/20/2013: Test Method ChangeDRVV Screen Ratio, DRVV 1/1 Screen Ratio, DRVV Confirm Ratio,DRVV Normalized Ratio Reference Range: <1.2Protime Reference Range ChangeNew: 11.7-14.7 Previous: 9.8-12.0PTT Reference Range ChangeNew: 22.5-36.0 Previous: 25.8-34.5URINE [id number] 11:40:00 Test Item Value Reference Range Interpretation Comments CULTURE ([facility]) (test 20-29,000 col/mL skin code = 1095) lei POCT-GLUCOSE [id number] 08:33:00 Test Item Value Reference Range Interpretation Comments POC-GLUCOSE METER 293 mg/dL 70-[address] [facility] 6720 ([facility]) (test code = [place] 1538) [address] VITAMIN D, [id number] 07:49:00 Test Item Value Reference Range Interpretation Comments VITAMIN D 25-OH ([facility]) (test code = < ng/mL 13.0-47.8 L 2764) CBC W/PLT COUNT & AUTO [id number] 05:59:00 Test Item Value Reference Range Interpretation Comments WHITE BLOOD CELL COUNT (AKER) 9.4 K/ L 3.5-10.5 (test code = 775) RED BLOOD CELL COUNT (AKER) 4.16 M/ L 3.93-5.22 (test code = 761) HEMOGLOBIN (BEAKER) (test code = 12.7 GM/DL 11.2-15.7 410) HEMATOCRIT (BEAKER) (test code = 38.0 % 34.1-44.9 411) MEAN CORPUSCULAR VOLUME (AKER) 91.3 fL 79.4-94.8 (test code = 753) MEAN CORPUSCULAR HEMOGLOBIN 30.5 pg 25.6-32.2 (BEAKER) (test code = 751) MEAN CORPUSCULAR HEMOGLOBIN CONC 33.4 GM/DL 32.2-35.5 (AKER) (test code = 752) RED CELL DISTRIBUTION WIDTH 12.6 % 11.7-14.4 (BEAKER) (test code = 412) PLATELET COUNT (BEAKER) (test 329 K/CU MM 150-450 code = 756) MEAN PLATELET VOLUME (BEAKER) 10.0 fL 9.4-12.3 (test code = 754) NUCLEATED RED BLOOD CELLS 0 /100 WBC 0-0 (BEAKER) (test code = 413) NEUTROPHILS RELATIVE PERCENT 68 % (BEAKER) (test code = 429) LYMPHOCYTES RELATIVE PERCENT 23 % (BEAKER) (test code = 430) MONOCYTES RELATIVE PERCENT 7 % (BEAKER) (test code = 431) EOSINOPHILS RELATIVE PERCENT 1 % (BEAKER) (test code = 432) BASOPHILS RELATIVE PERCENT 1 % (BEAKER) (test code = 437) NEUTROPHILS ABSOLUTE COUNT 6.35 K/ L 1.56-6.13 H (BEAKER) (test code = 670) LYMPHOCYTES ABSOLUTE COUNT 2.16 K/ L 1.18-3.74 (BEAKER) (test code = 414) MONOCYTES ABSOLUTE COUNT (BEAKER) 0.68 K/ L 0.24-0.36 H (test code = 415) EOSINOPHILS ABSOLUTE COUNT 0.10 K/ L 0.04-0.36 (BEAKER) (test code = 416) BASOPHILS ABSOLUTE COUNT (BEAKER) 0.06 K/ L 0.01-0.08 (test code = 417) IMMATURE GRANULOCYTES-RELATIVE 0 % 0-1 PERCENT (BEAKER) (test code = 2801) BASIC METABOLIC [id number] 05:38:00 Test Item Value Reference Range Interpretation Comments SODIUM (BEAKER) 135 meq/L 136-145 L (test code = 381) POTASSIUM (BEAKER) 4.1 meq/L 3.5-5.1 (test code = 379) CHLORIDE (BEAKER) 102 meq/L 98-107 (test code = 382) CO2 (BEAKER) (test 25 meq/L 22-29 code = 355) BLOOD UREA NITROGEN 12 mg/dL 7-21 (BEAKER) (test code = 354) CREATININE (BEAKER) 1.99 mg/dL 0.57-1.25 H (test code = 358) GLUCOSE RANDOM 290 mg/dL 70-105 H (BEAKER) (test code = 652) CALCIUM (BEAKER) 8.7 mg/dL 8.4-10.2 (test code = 697) EGFR (BEAKER) (test 27 mL/min/1.73 ESTIMA NHAN GFR IS code = 1092) sq m NOT ACCURATE CREATININE CLEARANCE IN PREDICTING GLOMERULAR FILTRATION RATE . ESTIMATED GFR I S NOT APPLICABLE FOR DIALYSIS PATIEN TS. [id number] 05:37:00 Test Item Value Reference Range Interpretation Comments PHOSPHORUS (BEAKER) (test code = 4.1 mg/dL 2.3-4.7 604) [id number] 05:37:00 Test Item Value Reference Range Interpretation Comments MAGNESIUM (BEAKER) (test code = 1.7 mg/dL 1.6-2.6 627) PTH, [id number] 05:34:00 Test Item Value Reference Range Interpretation Comments PARATHYROID HORMONE INTACT 57.2 pg/mL 8.5-72.5 ([facility]) (test code = 577) Effective 07/04/2014: Reference Range ChangeNew: 8.5-72.5 Previous: 15.0-90.0 CARDIOLIPIN ANTIBODIES, IGG AND [id number] 22:36:00 Test Item Value Reference Range Interpretation Comments ANTICARDIOLIPIN IGG ANTIBODY ([facility]) < GPL (test code = 712) ANTICARDIOLIPIN IGM ANTIBODY ([facility]) 2.8 MPL (test code = 713) Anticardiolipin IgG Result Interpretation:NEG: <20 GPL; U/mlPOS: >/=20 GPL; U/mlAnticardiolipin IgM Result Interpretation:NEG: <20 MPL; U/mlPOS: >/=20 MPL; U/mlPOCT-GLUCOSE [id number] 21:25:00 Test Item Value Reference Range Interpretation Comments POC-GLUCOSE METER 198 mg/dL 70-110 H TESTED AT [place] [address] ([facility]) (test code = [facility] 1538) [address] POCT-GLUCOSE [id number] 16:29:00 Test Item Value Reference Range Interpretation Comments POC-GLUCOSE METER 296 mg/dL 70-[address] [facility] 6720 [facility] (test code = [facility] 1538) [address] ANTI-NUCLEAR ANTIBODY (MARY)2017-03-18 15:30:00 Test Item Value Reference Range Interpretation Comments ANTI-NUCLEAR ANTIBODY (MARY) ([facility]) Negative Negative (test code = 418) HEXAGONAL [id number] 13:21:00 Test Item Value Reference Range Interpretation Comments HEXAGONAL PHOSPHOLIPID (BEAKER) Negative (test code = 1790) POCT-GLUCOSE [id number] 12:15:00 Test Item Value Reference Range Interpretation Comments POC-GLUCOSE METER 140 mg/dL 70-[address] [facility] 67 ([facility]) (test [facility] [address] PROTEIN C [id number] 11:44:00 Test Item Value Reference Range Interpretation Comments PROTEIN C ACTIVITY (BEAKER) (test 155.0 % 70.0-130.0 H code = 582) Effective 12/20/2013: Reference Range Change-Adult onlyNew: 70.0-130.0 Previous: 70.0-140.0See Protein C Antigen.ANTITHROMBIN [id number] 11:43:00 Test Item Value Reference Range Interpretation Comments ANTITHROMBIN III ACTIVITY (BEAKER) 87.0 % 80.0-120.0 (test code = 711) Effective 12/20/2013: Reference Range Change-Adult onlyNew: 80.0-120.0 Previous: 90.0-128.0POCT-GLUCOSE [id number] 08:17:00 Test Item Value Reference Range Interpretation Comments POC-GLUCOSE METER 107 mg/dL 70-110 TESTED AT [place] [address] ([facility]) (test code = [facility] 1538) [address] BASIC METABOLIC [id number] 06:32:00 Test Item Value Reference Range Interpretation Comments SODIUM (BEAKER) 136 meq/L 136-145 (test code = 381) POTASSIUM (BEAKER) 3.6 meq/L 3.5-5.1 (test code = 379) CHLORIDE (BEAKER) 104 meq/L 98-107 (test code = 382) CO2 (BEAKER) (test 23 meq/L 22-29 code = 355) BLOOD UREA NITROGEN 11 mg/dL 7-21 (BEAKER) (test code = 354) CREATININE (BEAKER) 1.68 mg/dL 0.57-1.25 H (test code = 358) GLUCOSE RANDOM 99 mg/dL 70-105 (BEAKER) (test code = 652) CALCIUM (BEAKER) 8.4 mg/dL 8.4-10.2 (test code = 697) EGFR (BEAKER) (test 33 mL/min/1.73 ESTIMA NHAN GFR IS code = 1092) sq m NOT ACCURATE CREATININE CLEARANCE IN PREDICTING GLOMERULAR FILTRATION RATE . ESTIMATED GFR I S NOT APPLICABLE FOR DIALYSIS PATIEN TS. CBC W/PLT COUNT & AUTO [id number] 05:56:00 Test Item Value Reference Range Interpretation Comments WHITE BLOOD CELL COUNT (BEAKER) 11.7 K/ L 3.5-10.5 H (test code = 775) RED BLOOD CELL COUNT (BEAKER) 3.95 M/ L 3.93-5.22 (test code = 761) HEMOGLOBIN (BEAKER) (test code = 12.1 GM/DL 11.2-15.7 410) HEMATOCRIT (BEAKER) (test code = 36.3 % 34.1-44.9 411) MEAN CORPUSCULAR VOLUME (BEAKER) 91.9 fL 79.4-94.8 (test code = 753) MEAN CORPUSCULAR HEMOGLOBIN 30.6 pg 25.6-32.2 (BEAKER) (test code = 751) MEAN CORPUSCULAR HEMOGLOBIN CONC 33.3 GM/DL 32.2-35.5 (BEAKER) (test code = 752) RED CELL DISTRIBUTION WIDTH 12.7 % 11.7-14.4 (BEAKER) (test code = 412) PLATELET COUNT (BEAKER) (test 349 K/CU MM 150-450 code = 756) MEAN PLATELET VOLUME (BEAKER) 10.8 fL 9.4-12.3 (test code = 754) NUCLEATED RED BLOOD CELLS 0 /100 WBC 0-0 (BEAKER) (test code = 413) NEUTROPHILS RELATIVE PERCENT 59 % (BEAKER) (test code = 429) LYMPHOCYTES RELATIVE PERCENT 31 % (BEAKER) (test code = 430) MONOCYTES RELATIVE PERCENT 8 % (BEAKER) (test code = 431) EOSINOPHILS RELATIVE PERCENT 2 % (BEAKER) (test code = 432) BASOPHILS RELATIVE PERCENT 1 % (BEAKER) (test code = 437) NEUTROPHILS ABSOLUTE COUNT 6.87 K/ L 1.56-6.13 H (BEAKER) (test code = 670) LYMPHOCYTES ABSOLUTE COUNT 3.57 K/ L 1.18-3.74 (BEAKER) (test code = 414) MONOCYTES ABSOLUTE COUNT (BEAKER) 0.90 K/ L 0.24-0.36 H (test code = 415) EOSINOPHILS ABSOLUTE COUNT 0.24 K/ L 0.04-0.36 (BEAKER) (test code = 416) BASOPHILS ABSOLUTE COUNT (BEAKER) 0.06 K/ L 0.01-0.08 (test code = 417) IMMATURE GRANULOCYTES-RELATIVE 0 % 0-1 PERCENT (BEAKER) (test code = 2801) POCT-GLUCOSE [id number] 04:32:00 Test Item Value Reference Range Interpretation Comments POC-GLUCOSE METER 107 mg/dL 70-110 TESTED AT [place] [address] ([facility]) (test code = [place] [facility] 1538) [id number] POCT-GLUCOSE [id number] 22:21:00 Test Item Value Reference Range Interpretation Comments POC-GLUCOSE METER 118 mg/dL 70-110 H TESTED AT [place] [address] ([facility]) (test code = [place] [facility] 1538) [id number] POCT-GLUCOSE [id number] 21:22:00 Test Item Value Reference Range Interpretation Comments POC-GLUCOSE METER 52 mg/dL 70-110 L Notified Isabel Ro MD/TESTED AT ([facility]) (test code = [address] 15[address]) [facility] [id number] MICROALBUMIN, RANDOM [id number] 17:57:00 Test Item Value Reference Range Interpretation Comments MICROALBUMIN URINE (BEAKER) (test > mg/dL code = 1794) Reference Range: No NormalsURINALYSIS W/ [id number] 17:36:00 Test Item Value Reference Range Interpretation Comments COLOR (BEAKER) (test code = Light Yellow 470) CLARITY (BEAKER) (test code = Clear 469) SPECIFIC GRAVITY UA (BEAKER) 1.005 1.001-1.035 (test code = 468) PH UA (BEAKER) (test code = 7.0 5.0-8.0 467) PROTEIN UA (BEAKER) (test code 300 mg/dL Negative A = 464) GLUCOSE UA (BEAKER) (test code 30 mg/dL Negative A = 365) KETONES UA (BEAKER) (test code Negative Negative = 371) BILIRUBIN UA (BEAKER) (test Negative Negative code = 462) BLOOD UA (BEAKER) (test code = Negative Negative 461) NITRITE UA (BEAKER) (test code Negative Negative = 465) LEUKOCYTE ESTERASE UA (BEAKER) Negative Negative (test code = 466) UROBILINOGEN UA (BEAKER) (test 0.2 mg/dL 0.2-1.0 code = 463) RBC UA (BEAKER) (test code = 1 /HPF 519) WBC UA (BEAKER) (test code = < /HPF 520) BACTERIA (BEAKER) (test code = Rare 517) SQUAMOUS EPITHELIAL (BEAKER) 1 /HPF (test code = 516) SOURCE(BEAKER) (test code = Urine, Voided 4524) SCREEN, [id number] 17:36:00 Test Item Value Reference Range Interpretation Comments TEST URINE (BEAKER) (test Negative code = 583) CREATININE, RANDOM [id number] 17:35:00 Test Item Value Reference Range Interpretation Comments CREATININE URINE (BEAKER) (test 33.9 mg/dL code = 375) Reference Range: No NormalsSODIUM, RANDOM [id number] 17:35:00 Test Item Value Reference Range Interpretation Comments SODIUM URINE (BEAKER) (test code = 63 meq/L 243) Reference Range: No NormalsPOCT-GLUCOSE [id number] 17:34:00 Test Item Value Reference Range Interpretation Comments POC-GLUCOSE METER 118 mg/dL 70-110 H TESTED AT [place] [address] ([facility]) (test code = [facility] Isabel [facility] 1538) [address] POCT-GLUCOSE [id number] 13:28:00 Test Item Value Reference Range Interpretation Comments POC-GLUCOSE METER 71 mg/dL 70-110 TESTED AT [place] [address] ([facility]) (test code = [facility] Isabel [facility] [id number] 1538) POCT-GLUCOSE [id number] 10:37:00 Test Item Value Reference Range Interpretation Comments POC-GLUCOSE METER 144 mg/dL 70-110 H TESTED AT [place] [address] ([facility]) (test code = [facility] 1538) [id number] POCT-GLUCOSE [id number] 07:18:00 Test Item Value Reference Range Interpretation Comments POC-GLUCOSE METER 60 mg/dL 70-110 L TESTED AT [place] [address] ([facility]) (test code = [facility] [address] 1538) CBC W/PLT COUNT & AUTO [id number] 05:51:00 Test Item Value Reference Range Interpretation Comments WHITE BLOOD CELL COUNT (BEAKER) 11.4 K/ L 3.5-10.5 H (test code = 775) RED BLOOD CELL COUNT (BEAKER) 3.81 M/ L 3.93-5.22 L (test code = 761) HEMOGLOBIN (BEAKER) (test code = 11.6 GM/DL 11.2-15.7 410) HEMATOCRIT (BEAKER) (test code = 34.5 % 34.1-44.9 411) MEAN CORPUSCULAR VOLUME (BEAKER) 90.6 fL 79.4-94.8 (test code = 753) MEAN CORPUSCULAR HEMOGLOBIN 30.4 pg 25.6-32.2 (BEAKER) (test code = 751) MEAN CORPUSCULAR HEMOGLOBIN CONC 33.6 GM/DL 32.2-35.5 (BEAKER) (test code = 752) RED CELL DISTRIBUTION WIDTH 12.6 % 11.7-14.4 (BEAKER) (test code = 412) PLATELET COUNT (BEAKER) (test 354 K/CU MM 150-450 code = 756) MEAN PLATELET VOLUME (BEAKER) 10.4 fL 9.4-12.3 (test code = 754) NUCLEATED RED BLOOD CELLS 0 /100 WBC 0-0 (BEAKER) (test code = 413) NEUTROPHILS RELATIVE PERCENT 72 % (BEAKER) (test code = 429) LYMPHOCYTES RELATIVE PERCENT 20 % (BEAKER) (test code = 430) MONOCYTES RELATIVE PERCENT 6 % (BEAKER) (test code = 431) EOSINOPHILS RELATIVE PERCENT 1 % (BEAKER) (test code = 432) BASOPHILS RELATIVE PERCENT 0 % (BEAKER) (test code = 437) NEUTROPHILS ABSOLUTE COUNT 8.21 K/ L 1.56-6.13 H (BEAKER) (test code = 670) LYMPHOCYTES ABSOLUTE COUNT 2.31 K/ L 1.18-3.74 (BEAKER) (test code = 414) MONOCYTES ABSOLUTE COUNT (BEAKER) 0.65 K/ L 0.24-0.36 H (test code = 415) EOSINOPHILS ABSOLUTE COUNT 0.11 K/ L 0.04-0.36 (BEAKER) (test code = 416) BASOPHILS ABSOLUTE COUNT (BEAKER) 0.05 K/ L 0.01-0.08 (test code = 417) IMMATURE GRANULOCYTES-RELATIVE 0 % 0-1 PERCENT (BEAKER) (test code = 2801) BASIC METABOLIC [id number] 05:51:00 Test Item Value Reference Range Interpretation Comments SODIUM (BEAKER) 138 meq/L 136-145 (test code = 381) POTASSIUM (BEAKER) 3.8 meq/L 3.5-5.1 (test code = 379) CHLORIDE (BEAKER) 105 meq/L 98-107 (test code = 382) CO2 (BEAKER) (test 26 meq/L 22-29 code = 355) BLOOD UREA NITROGEN 13 mg/dL 7-21 (BEAKER) (test code = 354) CREATININE (BEAKER) 1.66 mg/dL 0.57-1.25 H (test code = 358) GLUCOSE RANDOM 167 mg/dL 70-105 H (BEAKER) (test code = 652) CALCIUM (BEAKER) 8.9 mg/dL 8.4-10.2 (test code = 697) EGFR (BEAKER) (test 34 mL/min/1.73 ESTIMA NHAN GFR IS code = 1092) sq m NOT ACCURATE CREATININE CLEARANCE IN PREDICTING GLOMERULAR FILTRATION RATE . ESTIMATED GFR I S NOT APPLICABLE FOR DIALYSIS PATIEN TS. POCT-GLUCOSE [id number] 21:41:00 Test Item Value Reference Range Interpretation Comments POC-GLUCOSE METER 287 mg/dL 70-[address] [facility] 67[address] (BEAKER) (test code = [place] 1538) [address] BASIC METABOLIC [id number] 12:35:00 Test Item Value Reference Range Interpretation Comments SODIUM (BEAKER) 134 meq/L 136-145 L (test code = 381) POTASSIUM (BEAKER) 4.6 meq/L 3.5-5.1 (test code = 379) CHLORIDE (BEAKER) 105 meq/L 98-107 (test code = 382) CO2 (BEAKER) (test 23 meq/L 22-29 code = 355) BLOOD UREA NITROGEN 14 mg/dL 7-21 (BEAKER) (test code = 354) CREATININE (BEAKER) 1.59 mg/dL 0.57-1.25 H (test code = 358) GLUCOSE RANDOM 266 mg/dL 70-105 H (BEAKER) (test code = 652) CALCIUM (BEAKER) 8.2 mg/dL 8.4-10.2 L (test code = 697) EGFR (BEAKER) (test 36 mL/min/1.73 INSUFF ICIENT CLINICAL code = 1092) sq m DATA TO CALCULA TE ESTIMATED GFR.T his is an appended rep ort. These results h ave been appended t o a previously lazara l verified report . CBC W/PLT COUNT & AUTO [id number] 04:54:00 Test Item Value Reference Range Interpretation Comments WHITE BLOOD CELL COUNT (BEAKER) 10.6 K/ L 3.5-10.5 H (test code = 775) RED BLOOD CELL COUNT (BEAKER) 3.55 M/ L 3.93-5.22 L (test code = 761) HEMOGLOBIN (BEAKER) (test code = 10.8 GM/DL 11.2-15.7 L 410) HEMATOCRIT (BEAKER) (test code = 32.6 % 34.1-44.9 L 411) MEAN CORPUSCULAR VOLUME (BEAKER) 91.8 fL 79.4-94.8 (test code = 753) MEAN CORPUSCULAR HEMOGLOBIN 30.4 pg 25.6-32.2 (BEAKER) (test code = 751) MEAN CORPUSCULAR HEMOGLOBIN CONC 33.1 GM/DL 32.2-35.5 (BEAKER) (test code = 752) RED CELL DISTRIBUTION WIDTH 12.3 % 11.7-14.4 (BEAKER) (test code = 412) PLATELET COUNT (BEAKER) (test 311 K/CU MM 150-450 code = 756) MEAN PLATELET VOLUME (BEAKER) 10.2 fL 9.4-12.3 (test code = 754) NUCLEATED RED BLOOD CELLS 0 /100 WBC 0-0 (BEAKER) (test code = 413) NEUTROPHILS RELATIVE PERCENT 71 % (BEAKER) (test code = 429) LYMPHOCYTES RELATIVE PERCENT 20 % (BEAKER) (test code = 430) MONOCYTES RELATIVE PERCENT 6 % (BEAKER) (test code = 431) EOSINOPHILS RELATIVE PERCENT 3 % (BEAKER) (test code = 432) BASOPHILS RELATIVE PERCENT 1 % (BEAKER) (test code = 437) NEUTROPHILS ABSOLUTE COUNT 7.51 K/ L 1.56-6.13 H (BEAKER) (test code = 670) LYMPHOCYTES ABSOLUTE COUNT 2.11 K/ L 1.18-3.74 (BEAKER) (test code = 414) MONOCYTES ABSOLUTE COUNT (BEAKER) 0.60 K/ L 0.24-0.36 H (test code = 415) EOSINOPHILS ABSOLUTE COUNT 0.27 K/ L 0.04-0.36 (BEAKER) (test code = 416) BASOPHILS ABSOLUTE COUNT (BEAKER) 0.07 K/ L 0.01-0.08 (test code = 417) IMMATURE GRANULOCYTES-RELATIVE 1 % 0-1 PERCENT (BEAKER) (test code = 2801) [id number] 20:17:00 Test Item Value Reference Range Interpretation Comments RPR SCREEN (BEAKER) (test code = Nonreactive Nonreactive 420) POCT-GLUCOSE [id number] 18:09:00 Test Item Value Reference Range Interpretation Comments POC-GLUCOSE METER 215 mg/dL 70-[address] [facility] 6720 (BEAKER) (test code = [place] 1538) [address] CBC W/PLT COUNT & AUTO [id number] 11:54:00 Test Item Value Reference Range Interpretation Comments WHITE BLOOD CELL COUNT (BEAKER) 9.3 K/ L 3.5-10.5 (test code = 775) RED BLOOD CELL COUNT (BEAKER) 3.45 M/ L 3.93-5.22 L (test code = 761) HEMOGLOBIN (BEAKER) (test code = 10.7 GM/DL 11.2-15.7 L 410) HEMATOCRIT (BEAKER) (test code = 32.0 % 34.1-44.9 L 411) MEAN CORPUSCULAR VOLUME (BEAKER) 92.8 fL 79.4-94.8 (test code = 753) MEAN CORPUSCULAR HEMOGLOBIN 31.0 pg 25.6-32.2 (BEAKER) (test code = 751) MEAN CORPUSCULAR HEMOGLOBIN CONC 33.4 GM/DL 32.2-35.5 (BEAKER) (test code = 752) RED CELL DISTRIBUTION WIDTH 12.7 % 11.7-14.4 (BEAKER) (test code = 412) PLATELET COUNT (BEAKER) (test 302 K/CU MM 150-450 code = 756) MEAN PLATELET VOLUME (BEAKER) 10.0 fL 9.4-12.3 (test code = 754) NUCLEATED RED BLOOD CELLS 0 /100 WBC 0-0 (BEAKER) (test code = 413) NEUTROPHILS RELATIVE PERCENT 60 % (BEAKER) (test code = 429) LYMPHOCYTES RELATIVE PERCENT 29 % (BEAKER) (test code = 430) MONOCYTES RELATIVE PERCENT 8 % (BEAKER) (test code = 431) EOSINOPHILS RELATIVE PERCENT 3 % (BEAKER) (test code = 432) BASOPHILS RELATIVE PERCENT 1 % (BEAKER) (test code = 437) NEUTROPHILS ABSOLUTE COUNT 5.55 K/ L 1.56-6.13 (BEAKER) (test code = 670) LYMPHOCYTES ABSOLUTE COUNT 2.65 K/ L 1.18-3.74 (BEAKER) (test code = 414) MONOCYTES ABSOLUTE COUNT (BEAKER) 0.70 K/ L 0.24-0.36 H (test code = 415) EOSINOPHILS ABSOLUTE COUNT 0.31 K/ L 0.04-0.36 (BEAKER) (test code = 416) BASOPHILS ABSOLUTE COUNT (BEAKER) 0.05 K/ L 0.01-0.08 (test code = 417) IMMATURE GRANULOCYTES-RELATIVE 0 % 0-1 PERCENT (BEAKER) (test code = 2801) (MANUAL DIFFERENTIAL)[id number] 11:54:00 Test Item Value Reference Range Interpretation Comments TOTAL COUNTED (BEAKER) (test code = 1351) WBC MORPHOLOGY (BEAKER) (test code = Normal 487) PLT MORPHOLOGY (BEAKER) (test code = Normal 486) RBC MORPHOLOGY (BEAKER) (test code = Normal 762) SEDIMENTATION [id number] 10:27:00 Test Item Value Reference Range Interpretation Comments SEDIMENTATION RATE, ERYTHROCYTE 79 mm/HR 0-20 H (BEAKER) (test code = 766) HEMOGLOBIN [id number] 09:33:00 Test Item Value Reference Range Interpretation Comments HEMOGLOBIN A1C (BEAKER) (test code = 9.8 % 4.3-6.1 H 368) VITAMIN [id number] 09:14:00 Test Item Value Reference Range Interpretation Comments VITAMIN B12 (BEAKER) (test code = 1790 pg/mL 213-816 H 774) TSH/FREE T4 IF [id number] 09:14:00 Test Item Value Reference Range Interpretation Comments THYROID STIMULATING HORMONE 1.08 uIU/mL 0.35-4.94 (BEAKER) (test code = 772) BASIC METABOLIC [id number] 08:52:00 Test Item Value Reference Range Interpretation Comments SODIUM (BEAKER) 137 meq/L 136-145 (test code = 381) POTASSIUM (BEAKER) 4.7 meq/L 3.5-5.1 (test code = 379) CHLORIDE (BEAKER) 107 meq/L 98-107 (test code = 382) CO2 (BEAKER) (test 25 meq/L 22-29 code = 355) BLOOD UREA NITROGEN 18 mg/dL 7-21 (BEAKER) (test code = 354) CREATININE (BEAKER) 1.77 mg/dL 0.57-1.25 H (test code = 358) GLUCOSE RANDOM 290 mg/dL 70-105 H (BEAKER) (test code = 652) CALCIUM (BEAKER) 8.0 mg/dL 8.4-10.2 L (test code = 697) EGFR (BEAKER) (test mL/min/1.73 INSUFFIC IENT CLINICAL code = 1092) sq m DATA TO CALCULA TE ESTIMATED GFR. FastingLIPID [id number] 08:51:00 Test Item Value Reference Range Interpretation Comments TRIGLYCERIDES (BEAKER) (test code = 90 mg/dL 540) CHOLESTEROL (BEAKER) (test code = 143 mg/dL 631) HDL CHOLESTEROL (BEAKER) (test code 44 mg/dL = 976) LDL CHOLESTEROL CALCULATED (BEAKER) 81 mg/dL (test code = 633) Triglyceride Reference Range: Low Risk <150 Borderline 150-199 High Risk 200-499 Very High Risk >=500Cholesterol Reference Range: Low Risk <200 Borderline 200-239 High Risk >240HDL Cholesterol Reference Range: Low Risk >=60 High Risk <40LDL Cholesterol Reference Range: Optimal <100 Near Optimal 100-129 Borderline 130-159 High 160-189 Very High >=190 FastingHCG, QUANTITATIVE, [id number] 01:43:00 Test Item Value Reference Range Interpretation Comments GONADOTROPIN, CHORIONIC (HCG) QUANT < mIU/mL 0-10 (BEAKER) (test code = 649) Non- Females: <10 mIU/mL Females: Gestation Age Reference Range(mIU/mL) 0.2-1 Week 5-50 1-2 Weeks 50-500 2-3 Weeks 100-5,000 3-4Weeks 500-10,000 4-5 Weeks 1,000-50,000 5-6 Weeks 10,000-100,000 6-8 Weeks 15,000-200,000 2-3 Months 10,000-100,000COMPREHENSIVE METABOLIC [id number] 21:57:00 Test Item Value Reference Range Interpretation Comments TOTAL PROTEIN 5.0 gm/dL 6.0-8.3 L (BEAKER) (test code = 770) ALBUMIN (BEAKER) 2.1 g/dL 3.5-5.0 L (test code = 1145) ALKALINE PHOSPHATASE 106 U/L 40-150 (BEAKER) (test code = 346) BILIRUBIN TOTAL 0.2 mg/dL 0.2-1.2 (BEAKER) (test code = 377) SODIUM (BEAKER) 137 meq/L 136-145 (test code = 381) POTASSIUM (BEAKER) 4.7 meq/L 3.5-5.1 (test code = 379) CHLORIDE (BEAKER) 106 meq/L 98-107 (test code = 382) CO2 (BEAKER) (test 25 meq/L 22-29 code = 355) BLOOD UREA NITROGEN 21 mg/dL 7-21 (BEAKER) (test code = 354) CREATININE (BEAKER) 2.00 mg/dL 0.57-1.25 H (test code = 358) GLUCOSE RANDOM 285 mg/dL 70-105 H (BEAKER) (test code = 652) CALCIUM (BEAKER) 7.9 mg/dL 8.4-10.2 L (test code = 697) AST (SGOT) (BEAKER) 16 U/L 5-34 (test code = 353) ALT (SGPT) (BEAKER) 14 U/L 6-55 (test code = 347) EGFR (BEAKER) (test mL/min/1.73 INSUFFIC IENT code = 1092) sq m CLINICAL DATA T O CALCULATE ESTIM ATED GFR. Unit CollectPOCT-GLUCOSE [id number] 21:50:00 Test Item Value Reference Range Interpretation Comments POC-GLUCOSE METER 278 mg/dL 70-[address] [facility] 67 (NANCI) (test code = [place] 2763) [address]
[2020-02-08 16:41] LABS: ALT/SGPT 8 U/L (12-78); AST/SGOT 8 U/L (15-37); Albumin 3.2 g/dL (3.4-5.0); Alkaline Phosphatase 77 U/L (45-117); BUN Blood Urea Nitrogen 41 mg/dL (7-18); Bicarbonate 23 mmol/L (21-32); Bilirubin Direct 0.1 mg/dL (0-0.2); Bilirubin Total 0.5 mg/dL (0.2-1.0); Glucose Level 274 mg/dL (74-106); Magnesium 2.1 mg/dL (1.8-2.4); NT PRO-BNP 11158 pg/mL (<125); Potassium 3.8 mmol/L (3.5-5.1); Protein, Total 7.7 g/dL (6.4-8.2); Sodium Level 134 mmol/L (136-145); Troponin (Emerg Dept Use Only) < 0.02 ng/mL (0.0-0.045)
[2020-02-08] MEDS ORDERED: MORPHINE 2 MG/ML SYR ONE (17:23)
--- NOTE | 2020-02-08 17:31 | EDPHYS ---
Physician Documentation [facility] Name: Archana Woo Age: 44 yrs Sex: Female : 1975 Arrival Date: 02/08/2020 Time: 14:35 Bed 13 Private MD: ED Physician Russ Canales HPI: 02/07 16:36 This 44 yrs old Female presents to ER via EMS with complaints of Weakness. jr8 16:36 The patient presents to the emergency department with weakness of the left upper jr8 extremity, that is mild, left lower extremity, that is mild, paresthesias of the left lower extremity, that is mild, left upper extremity, that is mild. Onset: The symptoms/episode began/occurred gradually, 1 week(s) ago. Context: occurred at home. Associated signs and symptoms: The patient has no apparent associated signs or symptoms. Severity of symptoms: At their worst the symptoms were mild in the emergency department the symptoms are unchanged. Patient's baseline: Neuro: alert and fully oriented, Motor: left-sided weakness, Ambulation: walks with assist only, uses walker, Speech: normal. Current symptoms: paralysis or paresis, of the left arm and left leg, that is mild. The patient has experienced similar episodes in the past, a few times. The patient has not recently seen a physician. Historical: - Allergies: 14:43 No Known Allergies; - Home Meds: 14:43 calcitriol 0.25 mcg Oral cap 1 cap [Active]; docusate sodium 100 mg Oral cap 1 cap once ah daily [Active]; furosemide 80 mg Oral tab 1 tab 2 times per day [Active]; hydralazine 25 mg Oral tab 1 tab 4 times per day [Active]; Hydrocodone-Acetaminophen Oral [Active]; Lantus 100 unit/mL Sub-Q soln 100 unit/mL [Active]; - PMHx: 14:43 BLIND; Depression; CVA; Diabetes - NIDDM; GERD; Hyperlipidemia; Hypertension; left arm ah paralysis; neuropathy; TIA; THYROID CANCER; - Immunization history:: Adult Immunizations up to date. - Social history:: Smoking status: Patient reports the use of cigarette tobacco products, denies chronic smoking, but will smoke occasionally, Patient/guardian denies using alcohol. ROS: 16:36 Eyes: Negative for injury, pain, redness, and discharge, ENT: Negative for injury, jr8 pain, and discharge, Neck: Negative for injury, pain, and swelling, Cardiovascular: Negative for chest pain, palpitations, and edema, Respiratory: Negative for shortness of breath, cough, wheezing, and pleuritic chest pain, Abdomen/GI: Negative for abdominal pain, nausea, vomiting, diarrhea, and constipation, Back: Negative for injury and pain, MS/Extremity: Negative for injury and deformity, Skin: Negative for injury, rash, and discoloration. 16:36 Neuro: Positive for numbness, tingling, weakness, of the left arm and left leg. Exam: 16:36 Eyes: Pupils equal round and reactive to light, extra-ocular motions intact. Lids and jr8 lashes normal. Conjunctiva and sclera are non-icteric and not injected. Cornea within normal limits. Periorbital areas with no swelling, redness, or edema. ENT: Nares patent. No nasal discharge, no septal abnormalities noted. Tympanic membranes are normal and external auditory canals are clear. Oropharynx with no redness, swelling, or masses, exudates, or evidence of obstruction, uvula midline. Mucous membranes moist. Neck: Trachea midline, no thyromegaly or masses palpated, and no cervical lymphadenopathy. Supple, full range of motion without nuchal rigidity, or vertebral point tenderness. No Meningismus. Cardiovascular: Regular rate and rhythm with a normal S1 and S2. No gallops, murmurs, or rubs. Normal PMI, no JVD. No pulse deficits. Respiratory: Lungs have equal breath sounds bilaterally, clear to auscultation and percussion. No rales, rhonchi or wheezes noted. No increased work of breathing, no retractions or nasal flaring. Abdomen/GI: Soft, non-tender, with normal bowel sounds. No distension or tympany. No guarding or rebound. No evidence of tenderness throughout. Back: No spinal tenderness. No costovertebral tenderness. Full range of motion. Skin: Warm, dry with normal turgor. Normal color with no rashes, no lesions, and no evidence of cellulitis. MS/ Extremity: Pulses equal, no cyanosis. Neurovascular intact. Full, normal range of motion. 16:36 Neuro: Orientation: to person, place \T\ time. Mentation: is normal, Memory: immediate memory is intact, remote memory is intact. recent memory is intact, Cranial nerves: CN I not tested, CN II- XII are normal as tested, Patient legally blind. extraocular movements are intact, Facial palsy and sensory deficits are absent. Tongue strength is normal, Cerebellar function: normal finger to nose testing, heel to shetty testing is normal, Motor: moves all fours, strength is 4/5 in the left hand, left foot, left arm and left leg, Sensation: numbness, that is mild, of the left arm and left leg, Gait: not tested. seizure activity, is not displayed by the patient, Abnormal movements: there are no abnormal movements. Vital Signs: 14:25 BP 175 / 70; Pulse 82; Resp 17; Pulse Ox 100% ; Weight 58.97 kg; Height 5 ft. 4 in. (162.56 cm); 14:25 Temp 98.0; ah 14:30 BP 175 / 72; Pulse 82; Resp 15; Pulse Ox 100% ; 15:00 BP 187 / 78; Pulse 83; Resp 14; Pulse Ox 100% ; 16:14 BP 195 / 83; Pulse 86; Resp 15; Pulse Ox 100% ; 17:00 BP 199 / 76; Pulse 82; Resp 14; Pulse Ox 100% ; 18:00 BP 195 / 74; Pulse 74; Resp 12; Pulse Ox 100% ; 19:00 BP 201 / 79; Pulse 77; Resp 10; Pulse Ox 100% ; 14:25 Body Mass Index 22.31 (58.97 kg, 162.56 cm) NIH Stroke Scale Scores: 17:30 NIHSS Score: 5 [facility] MDM: 14:48 Patient medically screened. [facility] 17:07 Data reviewed: vital signs, nurses notes, lab test result(s), EKG, radiologic studies, [facility] CT scan, plain films. Data interpreted: Pulse oximetry: on room air is 100 %. Interpretation: normal. Counseling: I had a detailed discussion with the patient and/or guardian regarding: the historical points, exam findings, and any diagnostic results supporting the discharge/admit diagnosis, lab results, radiology results, the need for further work-up and treatment in the hospital. 02/07 14:48 Order name: Basic Metabolic Panel; Complete Time: 16:56 [facility] 02/07 14:48 Order name: CBC with Diff; Complete Time: 16:33 jr8 06/24 14:48 Order name: LFT's; Complete Time: 16:56 02/07 14:48 Order name: Magnesium; Complete Time: 16:56 02/07 14:48 Order name: NT PRO-BNP; Complete Time: 16:56 02/07 14:48 Order name: PT-INR; Complete Time: 16:33 02/07 14:48 Order name: CT Head Brain wo Cont; Complete Time: 16:06 02/07 14:48 Order name: Troponin (emerg Dept Use Only); Complete Time: 16:56 02/07 14:48 Order name: XRAY Chest (1 view); Complete Time: 16:02/07 14:48 Order name: EKG; Complete Time: 14:49 02/07 14:48 Order name: Cardiac monitoring; Complete Time: 15:02/07 17:28 Order name: MRI - Brain Wo Cont 02/07 14:48 Order name: EKG - Nurse/Tech; Complete Time: 15:02/07 14:48 Order name: IV Saline Lock; Complete Time: 15:02/07 14:48 Order name: Labs collected and sent; Complete Time: 16:17 02/07 14:48 Order name: O2 Per Protocol; Complete Time: 15:02/07 14:48 Order name: O2 Sat Monitoring; Complete Time: 15:05 Administered Medications: 16:10 Drug: Murphys 5 mg-325 mg 1 tabs Route: PO; 18:01 Follow up: Response: No adverse reaction 17:57 Drug: morphine 2 mg Route: IVP; Site: right forearm; ah 18:39 Follow up: Response: No adverse reaction Disposition: 02/08/20 17:29 Hospitalization ordered by Yvette Sims for Observation. Preliminary diagnosis is Cerebral infarction. - Bed requested for Telemetry/MedSurg (observation). - Status is Observation. ah - Condition is Stable. - Problem is new. - Symptoms are unchanged. NIH Stroke Scale - NIH Stroke Score Date: 02/08/2020 Time: 17:30 Total Score = 5 1a. Level of Consciousness (LOC) - 0(Alert) 1b. Level of Consciousness (LOC) (Year \T\ Age) - 0(Both) 1c. LOC Commands (Open \T\ Closes Eyes/Commercial Correspondent) - 0(Both) 2. Best Gaze (Lateral Gaze Paresis) - 0(Normal) 3. Visual Field Loss - 0(No visual loss) 4. Facial Palsy - 0(Normal) 5a. Left Arm: Motor (10-second hold) - 1(Drift) 5b. Right Arm: Motor (10-second hold) - 0(No drift) 6a. Left Leg: Motor (5-second hold - always test supine) - 1(Drift) 6b. Right Leg: Motor (5-second hold - always test supine) - 0(No drift) 7. Limb Ataxia (finger/nose \T\ heel/shetty - test with eyes open) - 2(Present in two limbs) 8. Sensory Loss (pinprick arms/legs/face) - 1(Mild to moderate loss) 9. Best Language: Aphasia (description/naming/reading) - 0(No aphasia) 10. Dysarthria (speech clarity - read or repeat words) - 0(Normal) 11. Extinction and Inattention (visual/tactile/auditory/spatial/personal) - 0(No abnormality) Initials: jrJeannie Addendum: 02/11/2020 07:21 Co-signature as Attending Physician, Russ Canales MD. rn Signatures: Dispatcher [employer] Reina Rivera RN RN kl Nieto, Roman, MD MD rn Roszak, Josh, PA PA jrAzalea Rivero RN RN Corrections: (The following items were deleted from the chart) 02/07 17:31 16:36 Neuro: Orientation: to person, place \T\ time. Mentation: is normal, jr8 Memory: immediate memory is intact, remote memory is intact. recent memory is intact, Cranial nerves: CN I not tested, CN II- XII are normal as tested, Patient legally blind. extraocular movements are intact, Facial palsy and sensory deficits are absent. Tongue strength is normal, Cerebellar function: normal finger to nose testing, heel to shetty testing is normal, Motor: moves all fours, strength is 4/5 in the left hand, left foot, left arm and left leg, Sensation: numbness, that is mild, of the left arm and left leg, Gait: not tested. seizure activity, is not displayed by the patient, Abnormal movements: there are no abnormal movements, jr8 17:34 17:29 Hospitalization Ordered by Yvette Sims MD for Observation. Preliminary kl diagnosis is Cerebral infarction. Bed requested for Telemetry/MedSurg (observation). Status is Observation. Condition is Stable. Problem is new. Symptoms are unchanged. jr8 19:42 17:34 02/08/2020 17:29 Hospitalization Ordered by Yvette Sims MD for ah Observation. Preliminary diagnosis is Cerebral infarction. Bed requested for Telemetry/MedSurg (observation). Status is Observation. Condition is Stable. Problem is new. Symptoms are unchanged. kl
--- NOTE | 2020-02-08 17:31 | ER ---
Nurse's Notes [facility] Name: Archana Woo Age: 44 yrs Sex: Female : 1975 Arrival Date: 02/08/2020 Time: 14:35 Bed 13 Private MD: Diagnosis: Cerebral infarction Presentation: 02/07 14:25 Chief complaint: Patient states: Left sided tingling and numbness for 1 week, right ah hand tingling today and headache behind right eye. BGL 261, BP 180/90. Coronavirus screen: Proceed with normal triage. Ebola Screen: No symptoms or risks identified at this time. No acute neurological deficit is noted. Initial Sepsis Screen: Does the patient meet any 2 criteria? No. Patient's initial sepsis screen is negative. Does the patient have a suspected source of infection? No. Patient's initial sepsis screen is negative. Risk Assessment: Do you want to hurt yourself or someone else? Patient reports no desire to harm self or others. Onset of symptoms is unknown. 14:25 Method Of Arrival: EMS: [facility] 14:25 Acuity: TARUN 3 15:06 Care prior to arrival: Glucose check: 261. 15:06 Care prior to arrival:. Historical: - Allergies: 14:43 No Known Allergies; - Home Meds: 14:43 calcitriol 0.25 mcg Oral cap 1 cap [Active]; docusate sodium 100 mg Oral cap 1 cap once ah daily [Active]; furosemide 80 mg Oral tab 1 tab 2 times per day [Active]; hydralazine 25 mg Oral tab 1 tab 4 times per day [Active]; Hydrocodone-Acetaminophen Oral [Active]; Lantus 100 unit/mL Sub-Q soln 100 unit/mL [Active]; - PMHx: 14:43 BLIND; Depression; CVA; Diabetes - NIDDM; GERD; Hyperlipidemia; Hypertension; left arm ah paralysis; neuropathy; TIA; THYROID CANCER; - Immunization history:: Adult Immunizations up to date. - Social history:: Smoking status: Patient reports the use of cigarette tobacco products, denies chronic smoking, but will smoke occasionally, Patient/guardian denies using alcohol. Screenin:02 Abuse screen: Denies threats or abuse. Nutritional screening: No deficits noted. Tuberculosis screening: No symptoms or risk factors identified. Fall Risk None identified. Assessment: 15:07 General: Appears uncomfortable, Behavior is cooperative, appropriate for age. Pain: ah Complains of pain in left side of body. Neuro: Level of Consciousness is awake, alert, obeys commands, Oriented to person, place, time, situation, Appropriate for age Gait is unable to assess at this time, pt states that she usually walks with a walker at home. Speech is normal, Facial symmetry appears normal, Pupils are PERRLA, Reports numbness tingling. Cardiovascular: Heart tones S1 S2 present Capillary refill < 3 seconds Patient's skin is warm and dry. Pulses are palpable in right radial artery and left radial artery Rhythm is sinus rhythm. Respiratory: Airway is patent Respiratory effort is even, unlabored, Breath sounds are clear bilaterally. GI: Bowel sounds present X 4 quads. Reports nausea, Patient currently denies vomiting. Derm: Skin is intact, is healthy with good turgor, Skin is dry. Musculoskeletal: Reports weakness and tingling to left side of body x1 week. 15:22 Reassessment: Pt to CT via stretcher. 16:30 Reassessment: Patient and/or family updated on plan of care and expected duration. Pain ah level reassessed. Patient is alert, oriented x 3, equal unlabored respirations, skin warm/dry/pink. 18:12 Reassessment: attempted to call report. Nurse is busy in another room. 18:40 Reassessment: Nurse called to ARMOND Tristan. Vital Signs: 14:25 BP 175 / 70; Pulse 82; Resp 17; Pulse Ox 100% ; Weight 58.97 kg; Height 5 ft. 4 in. (162.56 cm); 14:25 Temp 98.0; 14:30 BP 175 / 72; Pulse 82; Resp 15; Pulse Ox 100% ; 15:00 BP 187 / 78; Pulse 83; Resp 14; Pulse Ox 100% ; 16:14 BP 195 / 83; Pulse 86; Resp 15; Pulse Ox 100% ; 17:00 BP 199 / 76; Pulse 82; Resp 14; Pulse Ox 100% ; 18:00 BP 195 / 74; Pulse 74; Resp 12; Pulse Ox 100% ; 19:00 BP 201 / 79; Pulse 77; Resp 10; Pulse Ox 100% ; 14:25 Body Mass Index 22.31 (58.97 kg, 162.56 cm) NIH Stroke Scale Scores: 17:30 NIHSS Score: 5 [facility] ED Course: 14:35 Patient arrived in ED. 14:36 Azalea Julio, RN is Primary Nurse. 14:38 Triage completed. 14:38 EKG done, by aviation survival technician. reviewed by Russ Canales MD. at1 14:42 Sanjay Mejia PA is PHCP. jr8 14:42 Russ Canales MD is Attending Physician. jr8 15:09 XRAY Chest (1 view) In Process Unspecified. EDMS 15:24 CT Head Brain wo Cont In Process Unspecified. EDMS 15:56 Inserted saline lock: 24 gauge in right wrist, using aseptic technique. Blood collected. 17:29 Yvette Sims MD is Hospitalizing Provider. [facility] 17:41 Inserted saline lock: 22 gauge in right forearm, using aseptic technique. ss 18:01 Patient has correct armband on for positive identification. Placed in gown. Bed in low ah position. Call light in reach. Side rails up X 1. quality assurance monitor final on. Pulse ox on. NIBP on. Lights dimmed. Warm blanket given. 19:41 No provider procedures requiring assistance completed. Patient admitted, IV remains in ah place. Administered Medications: 16:10 Drug: Scurry 5 mg-325 mg 1 tabs Route: PO; 18:01 Follow up: Response: No adverse reaction 17:57 Drug: morphine 2 mg Route: IVP; Site: right forearm; 18:39 Follow up: Response: No adverse reaction Outcome: 17:29 Decision to Hospitalize by Provider. [facility] 18:45 Instructed on the need for admit. 19:41 Admitted to Med/surg accompanied by [facility], via stretcher, room 215, with chart, Report ah called to ARMOND Tristan 19:41 Condition: stable 19:42 Patient left the ED. NIH Stroke Scale - NIH Stroke Score Date: 02/08/2020 Time: 17:30 Total Score = 5 1a. Level of Consciousness (LOC) - 0(Alert) 1b. Level of Consciousness (LOC) (Year \T\ Age) - 0(Both) 1c. LOC Commands (Open \T\ Closes Eyes/Bleacher Lard) - 0(Both) 2. Best Gaze (Lateral Gaze Paresis) - 0(Normal) 3. Visual Field Loss - 0(No visual loss) 4. Facial Palsy - 0(Normal) 5a. Left Arm: Motor (10-second hold) - 1(Drift) 5b. Right Arm: Motor (10-second hold) - 0(No drift) 6a. Left Leg: Motor (5-second hold - always test supine) - 1(Drift) 6b. Right Leg: Motor (5-second hold - always test supine) - 0(No drift) 7. Limb Ataxia (finger/nose \T\ heel/shetty - test with eyes open) - 2(Present in two limbs) 8. Sensory Loss (pinprick arms/legs/face) - 1(Mild to moderate loss) 9. Best Language: Aphasia (description/naming/reading) - 0(No aphasia) 10. Dysarthria (speech clarity - read or repeat words) - 0(Normal) 11. Extinction and Inattention (visual/tactile/auditory/spatial/personal) - 0(No abnormality) Initials: jr8 Signatures: Dispatcher [employer] May Shelton RN RN ss Roszak, Josh, PA PA jr8 Berenice Barnes, nba player EKG Tat1 Diana Steele RN RN vc Harris, Amy, RN RN ah
[2020-02-08] MEDS ORDERED: NA CHLORIDE 0.9% 1,000 ML IV SCH (20:14)
[2020-02-08] MEDS ORDERED: ONDANSETRON 4 MG/2 ML VIAL IV PRN (20:14)
[2020-02-08] MEDS ORDERED: ACETAMINOPHEN 500 MG TAB PO PRN (20:14)
[2020-02-08] MEDS ORDERED: ATORVASTATIN 20 MG TAB PO SCH (21:00)
[2020-02-08] MEDS: HEPARIN 5000 UNIT/ML 1 ML VIAL SQ SCH (21:00)
[2020-02-08] MEDS: INSULIN -REGULAR HUMAN 50 UNIT/0.5 ML ML SQ SCH (21:00)
[2020-02-08] MEDS ORDERED: HYDRALAZINE HCL 20 MG/ML VIAL IV PRN (22:26)
[2020-02-08 22:35] VITALS: BMI 22.8
--- NOTE | 2020-02-09 02:28 | HP ---
Date of Admission: 02/08/2020 Consultants: Dr. Beckman with Nephrology and Dr. Alex with Neurology. Chief Complaint: Left-sided weakness. History Of Present Illness: Patient is a 44-year-old female with past medical history of hypertensio n, diabetes with diabetic retinopathy leading to legal blindness, depression and anxiety, history of thyroid cancer, hyperlipidemia, GERD, end-stage renal disease, on hemodialysis, previous history of C VA with left-sided weakness, who was recently in the hospital discharged on 12/26/2019 for similar sy mptoms. Patient was seen by Neurology at that time. MRI of the brain was done and was negative for any acute CVA and was felt to be due to narcotics as the patient was requesting Dilaudid by name. Kodi herzog states that for the past 5 days she has had numbness and tingling in her left upper extremity w hich has now progressed to weakness. Patient went to dialysis today and due to her symptoms, she was sent to the ER for further evaluation. She was not dialyzed. The patient's symptoms are constant, moderate, progressively worsening. No alleviating factors. In the ER, her vital signs showed blood pressure in the 190s to 180 systolic. Her workup revealed a creatinine of 8.13. BNP was 11,158. WB C count was normal. Patient was then referred for admission. When seen in the ER, she was awake, al ert, oriented x3, in some mild distress. Past Medical History: End-stage renal disease, on dialysis, legal blindness due to diabetic retinopa thy, hypertension, diabetes mellitus type 2, depression, anxiety, history of thyroid cancer, hyperlip idemia, tobacco abuse, GERD, CVA x3 with left side effected. Surgical History: Cholecystectomy, thyroidectomy, multiple eye surgeries and . Allergies: NO KNOWN DRUG ALLERGIES. Medications: List reviewed. Social History: Patient smokes every day. Does use alcohol. Lives at home with her sister. Amy kelly is , has 1 child. She is disabled due to her blindness. Family History: Father has heart disease, hypertension, thyroid problems. Mother has diabetes and k idney disease. Review of Systems: Ten-point system reviewed, negative except as per HPI. Physical Examination: Vital Signs: Blood pressure 175/70, pulse 82, respirations 17, O2 100% on room air, temperature 98, BMI 22. General: Awake, alert, oriented x3, ill-appearing female, in some mild distress. HEENT: Normocephalic, atraumatic. Patient has ptosis of both eyes, is legally blind. Oropharynx is clear. Poor dentition. Conjunctivae anicteric. Neck: Supple. No JVD. Trachea midline. CV: S1, S2. Regular rate and rhythm. Peripheral pulses present. No murmurs. Respiratory: Moving air well bilaterally except at the bases some diminished breath sounds. No whee zing or stridor. No use of accessory muscles. Gastrointestinal: Abdomen is soft, nontender, nondistended. Positive bowel sounds. Extremities: No clubbing, cyanosis, or edema. No calf tenderness. Neuro: Patient has weakness on the left upper extremity and left lower extremity 3/5, right upper an d lower extremity are 5/5 strength. No facial asymmetry. Speech is normal. Skin: No rashes. Normal skin turgor. Psych: Mood is anxious. Affect is congruent with mood. Insight and judgment are fair. Laboratory Data: Sodium 134, potassium 3.8, chloride 96, CO2 of 23, BUN 41, creatinine 8.13, glucose 274, calcium 8.8, magnesium 2.1. Troponin less than 0.02. INR 0.9. WBC 9.9, H and H 11.6 and 35.5 , platelets 301. Imaging Studies: Head CT scan shows no acute changes. No intracranial hemorrhage. Advance for age atrophy and chronic ischemic changes, not different from comparison. Chest x-ray personally reviewed shows no acute cardiopulmonary process. Assessment And Plan: 44-year-old female with 1.Transient ischemic attack. Patient has left-sided weakness and numbness. Rule out cerebrovascula r accident. We will start on stroke guidelines, aspirin, statin and Plavix. Consult Neurology. We will obtain MRI stroke protocol. Patient recently had MRI in December of 2019, which was negative. An ec hocardiogram showed EF of 51%. No need to repeat echo. We will allow for permissive hypertension at this time due to possible acute cerebrovascular accident. 2.End-stage renal disease, on hemodialysis, was not dialyzed today. We will consult Dr. Beckman. Patient will be dialyzed in-house. 3.History of previous cerebrovascular accident with left-sided weakness. We will continue aspirin, add Plavix. 4.Chronic obstructive pulmonary disease, chronic bronchitis. 5.Depression with anxiety, stable. Will continue home medications. 6.Diabetes mellitus type 2 with diabetic retinopathy and blindness as well as hyperglycemia. We brennan l continue sliding scale insulin and monitor blood glucose levels. We will continue home dose of ins ulin. 7.Diabetic gastroparesis, stable. 8.Mixed hyperlipidemia. We will check lipid panel. 9.Essential hypertension. We will allow permissive hypertension due to possible acute cerebrovascul ar accident. PLAN: Admit patient to Med-Surg, [facility] as observation. We will have PT, OT, and speech therapy evaluation. Heparin for deep venous thrombosis prophylaxis. /KERI Voice ID: [id number]
[2020-02-09 04:11] LABS: Absolute Lymphocytes (CBC) 1.9 K/uL (0.7-4.9); Basophils % 0.8 % (0-1.3); Hematocrit 31.1 % (36.0-45.0); Lymphocytes % 21.1 % (15.3-44.8); MPV 8.8 fL (7.6-11.3); RBC Red Blood Cell Count 3.27 M/uL (3.86-4.86)
[2020-02-09 04:35] LABS: Albumin 2.7 g/dL (3.4-5.0); Bilirubin Total 0.6 mg/dL (0.2-1.0); Magnesium 2.1 mg/dL (1.8-2.4); Phosphorus 7.4 mg/dL (2.5-4.9); Potassium 3.7 mmol/L (3.5-5.1); Protein, Total 6.4 g/dL (6.4-8.2)
--- NOTE | 2020-02-09 06:31 | EKG ---
Test Date: 2020-02-08 Test Time: 14:33:44 Garden Consultant: ANITA MEASUREMENT RESULTS: Intervals: Rate: 83 GA: 138 QRSD: 76 QT: 424 QTc: 498 [place]: P: 74 GA: 138 QRS: 9 T: 77 INTERPRETIVE STATEMENTS: Normal sinus rhythm Prolonged QT Abnormal ECG Compared to ECG 12/25/2019 14:39:52 Prolonged QT interval now present Electronically Signed On 02-09-20 06:30:40 CDT by Elder Tejeda
[2020-02-09] MEDS: INSULIN -REGULAR HUMAN 50 UNIT/0.5 ML ML SQ SCH ×4 (08:00→21:00)
[2020-02-09] MEDS: ASPIRIN EC 81 MG TAB PO SCH (08:49)
[2020-02-09] MEDS: HEPARIN 5000 UNIT/ML 1 ML VIAL SQ SCH ×2 (08:49→21:20)
[2020-02-09] MEDS: CLOPIDOGREL 75 MG TABLET PO SCH (08:49)
[2020-02-09] MEDS: HYDROCODONE/APAP 10/325 TAB PO PRN ×2 (09:25→21:19)
[2020-02-09] MEDS: SEVELAMER CARBONATE 800 MG TABLET PO SCH ×2 (11:27→16:54)
--- NOTE | 2020-02-09 12:40 | CON ---
Date of Consultation: 02/09/2020 Reason For Consultation: Elevated BUN and creatinine, fluid management, end-stage renal disease, kandis ctrolyte imbalance. History Of Present Illness: This is a 44-year-old Ecu[place] female well known to me from dialysis with significant past medical history of hypertension; diabetes, complicated with retinopathy, legally bl ind; depression; hypothyroidism; thyroid cancer; GERD; hyperlipidemia; end-stage renal disease, on he modialysis at [facility]; CVA with left-sided weakness. Patient came to the hosp ital from dialysis unit as there in the dialysis had weakness on the left side. For that reason, she was sent over. Patient primary workup CT was negative. Patient was evaluated before 1 month ago fo r CVA by Neurology, was cleared. The primary workup showed hypokalemia, elevated BUN and creatinine. For that reason, we have been consulted. Patient poor compliant with her medication, poor complian t with the dialysis. Past Medical History: 1.Diabetes, complicated with neuropathy, nephropathy, and retinopathy, legally blind. 2.Hypertension. 3.Hyperlipidemia. 4.End-stage renal disease, on hemodialysis Thursday, Thursday, Thursday, missed her dialysis yesterday. 5.Depression. 6.CVA. 7.GERD. Past Surgical History: Cholecystectomy, thyroidectomy, eye surgery, . Allergies: NO KNOWN DRUGS ALLERGY. Social History: Active smoker. Active alcohol. Denied drugs use. Family History: Positive for diabetes, coronary artery disease, and hypertension. Home Medications: Include gabapentin, folic acid, atorvastatin, Lasix, Plavix, insulin, Renvela, Reg lexx, and carvedilol. Current medications in the hospital include Plavix, hydralazine, insulin, Zofran. Review of Systems: Head and Neck: Legally blind. GI: Has nausea. No vomiting. : No polyuria. No dysuria. No hematuria. Airplane Navigator: No vaginal discharge. Respiratory: Has mild shortness of breath. Cardiovascular: No chest pain. Endocrine: No polydipsia. Skin: No rash. Neuro: Has neuropathy. Has weakness on the left. Musculoskeletal: Has low back pain and leg pain. Physical Examination: Vital Signs: When I saw the patient, blood pressure 188/81, pulse of 85. Chest: Clear to auscultation. Heart: S1, S2. Systolic murmur. Abdomen: Soft, nontender. Extremities: No edema. Neuro: Mild weakness on the left side. Legally blind. The rest of her exam is negative. Laboratory Data: WBC 9.1, H and H 10.4/31.3, platelets 236. Sodium 135, potassium 3.7, bicarb 24, B UN 45, creatinine 8.6, calcium 8.4, phosphorus 7.4. Assessment And Plan: 1.End-stage renal disease, normal volume to over volume. I am going to dialyzed the patient. Now, we will challenge the patient. 2.Secondary hyperparathyroidism. I will resume her binder. 3.Hyponatremia, going to be corrected on dialysis. 4.Hypertension, not controlled. I am going to resume her blood pressure medication. 5.Diabetes as by primary. 6.Hypokalemia. Patient is going to be dialyzed on high potassium bath. We will follow up. Thank you, Dr. Sims, for allowing us to participate in the care of your patient. CASSIE/KERI Voice ID: [id number] Report ID: [id number]
[2020-02-09] MEDS: FUROSEMIDE 40 MG TABLET PO SCH (16:54)
[2020-02-09] MEDS: EPOETIN 4,000 UNIT/ML VIAL IV SCH (17:00)
[2020-02-09] MEDS ORDERED: DOCUSATE NA 100 MG CAP PO PRN (18:06)
--- NOTE | 2020-02-09 20:03 | RAD REPORT ---
EXAM DESCRIPTION: MRI - Brain Wo Cont - 02/09/2020 7:33 pm CLINICAL HISTORY: Hemiplegia;Numbness COMPARISON: Brain Wo Cont dated 12/23/2019; Head Brain Wo Cont dated 02/08/2020 TECHNIQUE: Sagittal T1-weighted images were obtained along with axial PD, heavily T2-weighted and T2 -FLAIR images. Axial DWI and ADC mapping sequences were also obtained along with coronal heavily T2-w eighted images. FINDINGS: No intracranial hemorrhage, mass or acute infarction. There is no edema or shift of midlin e structures. No cortical edema or sulcal effacement. Advanced for age white matter signal abnormalit y present. This includes brainstem signal abnormality. Pattern matches prior December 2019 MRI study. Atro phy changes are present. Ventricles are in proportion to volume loss. Coffman-matter/white matter juncti on is preserved. Signal voids are seen as a normal finding in the major intracranial vessels. Bilateral globe deformities again noted. No acute globe or orbital finding. Mastoid air cells and paranasal sinuses are clear. IMPRESSION: No acute infarction. No hemorrhage, mass or acute intracranial finding. Advanced for age atrophy and chronic ischemic pattern, stable from December 2019.
[2020-02-09] MEDS ORDERED: ATORVASTATIN 40 MG TAB PO SCH (21:00)
[2020-02-09] MEDS: ATORVASTATIN 20 MG TAB PO SCH (21:20)
[2020-02-09] MEDS: GABAPENTIN 100 MG CAP PO SCH (21:20)
[2020-02-09] MEDS: carvediloL 6.25 MG TAB PO SCH (21:20)
--- NOTE | 2020-02-09 22:55 | CON ---
Reason For Consultation: Consultation was called because of left-sided weakness and numbness. History Of Present Illness: Ms. Woo is a 44-year-old patient with multiple medical proble ms including end-stage renal disease, on hemodialysis; hypertension; diabetes mellitus; diabetic reti nopathy; legal blindness; depression; anxiety; thyroid cancer; dyslipidemia, who has a right thalamic chronic stroke with left hemisensory deficits. She was recently hospitalized on December 25 for very sim ilar symptoms. MRI at that time was negative for any acute stroke. Chronic findings were there. Gonzales carter was requesting Dilaudid for pain and was actually sent home without that. She now comes back with about 5 days of intermittent, but progressive and similar left-sided numbness, but now reports some w eakness, although interestingly when distracted, the patient uses the left arm very well to reach abo ve her head. Though she has difficulty with vision, she can move it around again without difficulty. Her head CT scan showed no acute ischemic or hemorrhagic change. A chronic right thalamic stroke w as identified. In addition, there is nmdwvity-zob-oic generalized atrophy, likely secondary to her c hronic diseases. Her lab work showed a complete blood count with differential, which was remarkable for mild anemia, l ikely along with anemia of chronic disease. Coagulation panel was normal. She actually was about to have dialysis at the time of her symptoms as she did not receive dialysis. Her creatinine today is 8.69. Potassium is normal at 3.7. Glucose ranged from 164 to . Phosphorus is elevated at 7.4. Alkaline phosphatase of 152. AST increased from a low of 8 on the th to 93 on the . AL T increased from 8 to 47. Her chest x-ray showed no acute cardiopulmonary processes. Past Medical History: As indicated. In terms of stroke, reportedly 3 strokes with the left-sided de ficits of sensation, ovx-og-wpoqljikvs strength. Past Surgical History: Thyroidectomy, cholecystectomy, eye surgery, . Allergies: NO KNOWN DRUG ALLERGIES. Social History: Patient smokes and drinks alcohol on a regular basis, and she is disabled and legall y blind. Medications: She is on [place] 10/325 every 12 hours as needed, aspirin 162 mg daily, Lipitor 20 mg at bedtime, Coreg 6.25 mg twice daily, Plavix 75 mg daily, Retacrit 4000 units every hemodialysis, jessy te 1 mg daily, Lasix 80 mg twice a day, gabapentin 100 mg twice daily, units subcu every 1 2 hours, Apresoline 10 mg every 6 hours as needed IV, Zofran 4 mg every 4 hours as needed, Renvela 24 00 mg 3 times a day with meals. Review of Systems: She reports some left-sided weakness and numbness and blindness, but no recent cough, shortness of br eath. No other respiratory issues or diarrhea. No dermatological acute issues and no active psychia tric issues. Physical Examination: Vital Signs: Blood pressure ranged from 99 to 124/56 to 62, pulse 76 to 81, temperature 97.3, oxygen saturation 100%, respiratory rate 15, weight 132 pounds, height 5 feet 4 inches, BMI 22.8. General: Ms. Woo is resting in bed, eating lunch. She is in no acute distress. HEENT: She is normocephalic, atraumatic. Neurologic: She does have a glazed-over right eye, is legally blind, and cannot find a pen in front of her face. Otherwise, on cranial nerves, no clear asymmetry is noted, although there seems to be s ome swelling noted more on the right than the left face. There are good excursions bilaterally. Mot or: Right upper and lower extremities: No issues with lifting and movement. On the left side, whil e , she is able to eventually lift the left arm above her head and hold it there more than 10 counts and she can resist against gravity. Similarly in the left lower extremity, she does have a deficit of sensation of the left face, arm, and leg compared to the right side, and she will be ambu lated with the physical therapist. Assessment: 1.Ms. Woo is a 44-year-old patient with a chronic right thalamic stroke and left-sided hemisensory deficits. No clear new findings of weakness as she reports. She has advanced cerebral atrophy and likely has vascular dementia related to that. 2.She has end-stage renal disease, on hemodialysis, and multiple other medical problems in addition to using alcohol and tobacco. She is likely a candidate for potential drug-seeking behavior as she w as requesting Dilaudid by name at her last visit. She is also on [place] 10/325. Plan: 1.Minimize the use of narcotics. May add gabapentin for control of pain. 2.She should continue with aspirin, Plavix, folic acid, and statin for stroke risk reduction. 3.Careful management of fluids with as much saturation as possible given end-stage renal disease. 4.She may be discharged home and have physical therapy outpatient as appropriate for improving stren gth, coordination, gait, balance. KATHIE/KERI Voice ID: [id number] Report ID: [id number]
--- NOTE | 2020-02-10 00:10 | DS ---
Date of service: 02/09/2020 Consultants: Dr. Beckman with Nephrology, Dr. Alex with Neurology. Discharge Diagnoses: 1. Transient ischemic attack, left-sided weakness and numbness. 2. End-stage renal disease on hemodialysis, stable. 3. Previous history of cerebrovascular accident with left-sided weakness. 4. Chronic obstructive pulmonary disease, chronic bronchitis. 5. Depression with anxiety, stable. 6. 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 7. Diabetic gastroparesis, stable. 8. Hyperlipidemia, on statin, stable. 9. Essential hypertension, stable. Hospital Course: Patient is a 44-year-old female with past medical history of diabetes, hypertension, diabetic retinopathy with blindness, depression, anxiety, thyroid cancer, hyperlipidemia, GERD, end-stage renal disease, on hemodialysis, history of CVA with left-sided weakness comes in after being discharged approximately 1 month ago for similar symptoms of left-sided weakness and numbness. Patient was outside the window for tPA as her symptoms had been ongoing for the past [address] scan was negative. She was admitted to the hospital for further evaluation and to rule out stroke. She was seen by Neurology. MRI was negative. Neurology felt that there might be some secondary gain as the patient is able to move her left side and is similar to her previous level of functioning. Patient's speech is also normal and not changed. Patient has had echocardiogram done last month, which was normal. Patient was also seen by Nephrology, Dr. Beckman for her end-stage renal disease and to continue her hemodialysis. The patient other medical's conditions were stable. Patient otherwise, was doing well. She may continue PT at home and will likely need to be seen by Psychiatry for her depression. Overall, patient was stable and was cleared for discharge from field sales consultant's standpoint after CVA was ruled out. Medications: As per medication reconciliation list. Diet: Renal, diabetic diet. Activity: Fall precautions. Followup: Patient to follow up with primary care physician in 2-3 days. Follow up with locomotive boilermaker in 2 weeks. Follow up with neurologist, Dr. Alex as needed. Return to ER for worsening condition. Physical Examination: General: Awake, alert, oriented x3, not in any acute distress. CV: S1, S2. Respiratory: Moving air well bilaterally. Abdomen: Soft, nontender, nondistended. Positive bowel sounds. Extremities: No clubbing, cyanosis, or edema. Neuro: Patient has legal blindness, minimal left-sided weakness. Upper extremity is 4+/5. Lower extremity is 4/5. /KERI Voice ID: [id number] Report ID: [id number] [facility]
[2020-02-10 06:04] LABS: Albumin 2.6 g/dL (3.4-5.0); Bilirubin Total 0.4 mg/dL (0.2-1.0); Phosphorus 4.4 mg/dL (2.5-4.9); Potassium 3.9 mmol/L (3.5-5.1)
[2020-02-10] MEDS: INSULIN -REGULAR HUMAN 50 UNIT/0.5 ML ML SQ SCH ×4 (07:30→20:40)
[2020-02-10] MEDS: SEVELAMER CARBONATE 800 MG TABLET PO SCH ×4 (08:00→17:00)
[2020-02-10] MEDS ORDERED: INSULIN GLARGINE HUM REC ANLOG 10 UNIT SQ SCH (09:00)
[2020-02-10] MEDS: HEPARIN 5000 UNIT/ML 1 ML VIAL SQ SCH ×2 (09:11→20:39)
[2020-02-10] MEDS: FUROSEMIDE 40 MG TABLET PO SCH ×2 (09:11→16:41)
[2020-02-10] MEDS: METOCLOPRAMIDE 5 MG TAB PO SCH (09:11)
[2020-02-10] MEDS: CLOPIDOGREL 75 MG TABLET PO SCH (09:11)
[2020-02-10] MEDS: ASPIRIN EC 81 MG TAB PO SCH (09:11)
[2020-02-10] MEDS: carvediloL 6.25 MG TAB PO SCH ×2 (09:12→21:00)
[2020-02-10] MEDS: SERTRALINE HCL 100 MG TAB PO SCH (09:12)
[2020-02-10] MEDS: GABAPENTIN 100 MG CAP PO SCH ×2 (09:12→20:39)
[2020-02-10] MEDS: FOLIC ACID 1 MG TABLET PO SCH (09:48)
--- NOTE | 2020-02-10 13:26 | P.PN ---
Subjective Date of Service: 02/10/20 Subjective: New changes Subjective A 44-year-old female who has a history of ESRD on HD MWF , stroke, diabetic legaly blind and HTN Pt presented for Lt sided weakness W/U negative today still complaining of lt sided weakness, infract pt have 4 extremity weakness W/U negative had urinary retention , S/p straight cath will monitor for retention , if persisit will need hong HD tomorrow Physical exam general: AAOX3, NAD , blind Neck; Supple, No elevated JVD hear: RRR, normal S1,2 no murmur or rub Chest: CTAB, no rales or wheezes Abdomen: Soft , Nt Extremities: no edema, weakness End-stage renal disease on HD MWF HD tomorrow then MWF renal dose meds Lt sided weakness recurrent extensive W/U in the past was negative PT/OT MRI this admission with no significant finding Anemia of chronic disease will resume epogen HTN Controlled DM as per PCP total time spent 35 min Physical Examination - Vital Signs Temperature: 98.4 F Blood Pressure: 163/71 Pulse: 76 Respirations: 16 Pulse Ox (%): 99
--- NOTE | 2020-02-10 16:55 | PN ---
Date of Progress Note: 02/10/2020 Subjective: Patient is seen and examined. Chart reviewed and case discussed with RN. Patient is co mplaining of inability to void. Bladder scan was ordered and had 400 mL. Patient was straight alejandro d. Patient was dialyzed yesterday. Medications: List reviewed. Physical Examination: Vital Signs: Temperature 98.5, heart rate 75, blood pressure 131/62, respirations 16, O2 of 99% on r oom air. General: Awake, alert, oriented x3, not in any acute distress. CV: S1, S2. Regular rate and rhythm. Peripheral pulses present. Respiratory: Moving air well bilaterally. No wheezing or stridor. Gastrointestinal: Abdomen is soft, nontender, nondistended. Positive bowel sounds. No guarding or rigidity. Extremities: No clubbing, cyanosis. Trace pedal edema. Neurologic: The patient has some weakness on the left side, chronic due to her previous CVA. Speech is normal. Patient is legally blind. Laboratory Data: Sodium 137, potassium 3.9, chloride 101, CO2 of 25, BUN 20, creatinine 5.13, glucos e 275, calcium 8, phosphorus 4.4, albumin 2.6. MRI of the brain negative for any acute CVA, [id number] atrophy, and chronic ischemic pattern, stable from December 2019. Assessment: 1.Transient ischemic attack, left-sided weakness and numbness improved, back to baseline. MRI negat selvin. 2.End-stage renal disease, on hemodialysis, stable. 3.Urinary retention, improved. 4.End-stage renal disease, on hemodialysis. 5.Previous history of cerebrovascular accident with left-sided weakness, stable. 6.Chronic obstructive pulmonary disease, chronic bronchitis, stable. 7.Depression with anxiety, stable. Continue SSRI. 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 9.Diabetic gastroparesis, stable. 10.Mixed hyperlipidemia, on statin. 11.Essential hypertension, stable. Plan: Discharge home with home health. /KERI Voice ID: [id number] Report ID: [id number]
[2020-02-10] MEDS: ATORVASTATIN 20 MG TAB PO SCH (20:39)
[2020-02-10] MEDS: HYDROCODONE/APAP 10/325 TAB PO PRN (20:56)
[2020-02-11 06:00] LABS: Albumin 2.6 g/dL (3.4-5.0); Phosphorus 5.9 mg/dL (2.5-4.9); Potassium 4.2 mmol/L (3.5-5.1)
[2020-02-11] MEDS: INSULIN -REGULAR HUMAN 50 UNIT/0.5 ML ML SQ SCH ×3 (07:30→16:30)
[2020-02-11] MEDS: SEVELAMER CARBONATE 800 MG TABLET PO SCH ×3 (08:00→17:00)
[2020-02-11] MEDS: FUROSEMIDE 40 MG TABLET PO SCH ×2 (09:00→17:00)
[2020-02-11] MEDS: carvediloL 6.25 MG TAB PO SCH ×2 (09:00→21:00)
[2020-02-11] MEDS: GABAPENTIN 100 MG CAP PO SCH (09:01)
[2020-02-11] MEDS: METOCLOPRAMIDE 5 MG TAB PO SCH (09:01)
[2020-02-11] MEDS: CLOPIDOGREL 75 MG TABLET PO SCH (09:01)
[2020-02-11] MEDS: ASPIRIN EC 81 MG TAB PO SCH (09:01)
[2020-02-11] MEDS: SERTRALINE HCL 100 MG TAB PO SCH (09:01)
[2020-02-11] MEDS: FOLIC ACID 1 MG TABLET PO SCH (09:01)
[2020-02-11] MEDS: HEPARIN 5000 UNIT/ML 1 ML VIAL SQ SCH (09:02)
--- NOTE | 2020-02-11 15:12 | P.PN ---
Subjective Date of Service: 02/11/20 Subjective: C/O voiced (-still unable to void - state still numbness over left legs - unable to get dialysis yesterday , dialysis team called today) Physical Examination - Vital Signs Temperature: 97 F Blood Pressure: 155/70 Pulse: 67 Respirations: 18 Pulse Ox (%): 98 - Physical Exam General: Alert, In no apparent distress, Other (blind+) HEENT: Atraumatic, Normocephalic Neck: Supple, 2+ carotid pulse no bruit, JVD not distended Respiratory: Clear to auscultation bilaterally, Normal air movement Cardiovascular: Regular rate/rhythm, Normal S1 S2 (left AVF ) Gastrointestinal: Normal bowel sounds, Soft and benign, Non-distended Musculoskeletal: No clubbing, No swelling Neurological: Normal speech, Abnormal gait (not tested ) - Studies Laboratory Last Values WBC 9.9 K/uL (4.3-10.9) 02/08/20 15:52 RBC 3.78 M/uL (3.86-4.86) L 02/08/20 15:52 Hgb 11.6 g/dL (12.0-15.0) L 02/08/20 15:52 Hct 35.5 % (36.0-45.0) L 02/08/20 15:52 MCV 93.9 fL (80-100) 02/08/20 15:52 MCH 30.7 pg (27.0-35.0) 02/08/20 15:52 MCHC 32.7 g/dL (32.0-36.0) 02/08/20 15:52 RDW 15.0 % (12.1-15.2) 02/08/20 15:52 Plt Count 301 K/uL (152-406) 02/08/20 15:52 MPV 8.9 fL (7.6-11.3) 02/08/20 15:52 Neutrophils % 73.5 % (41.7-73.7) 02/08/20 15:52 Lymphocytes % 15.7 % (15.3-44.8) 02/08/20 15:52 Monocytes % 8.4 % (3.3-12.3) 02/08/20 15:52 Eosinophils % 1.8 % (0-4.4) 02/08/20 15:52 Basophils % 0.6 % (0-1.3) 02/08/20 15:52 Absolute Neutrophils 7.3 K/uL (1.8-8.0) 02/08/20 15:52 Absolute Lymphocytes 1.5 K/uL (0.7-4.9) 02/08/20 15:52 Absolute Monocytes 0.8 K/uL (0.1-1.3) 02/08/20 15:52 Absolute Eosinophils 0.2 K/uL (0-0.5) 02/08/20 15:52 Absolute Basophils 0.1 K/uL (0-0.5) 02/08/20 15:52 PT 10.6 SECONDS (9.5-12.5) 02/08/20 15:52 INR 0.90 02/08/20 15:52 Sodium 134 mmol/L (136-145) L 02/08/20 15:52 Potassium 3.8 mmol/L (3.5-5.1) 02/08/20 15:52 Chloride 96 mmol/L (98-107) L 02/08/20 15:52 Carbon Dioxide 23 mmol/L (21-32) 02/08/20 15:52 BUN 41 mg/dL (7-18) H 02/08/20 15:52 Creatinine 8.13 mg/dL (0.55-1.3) H* 02/08/20 15:52 Estimated GFR 5 mL/min (=/>90) L 02/08/20 15:52 Glucose 274 mg/dL (74-106) H 02/08/20 15:52 Calcium 8.8 mg/dL (8.5-10.1) 02/08/20 15:52 Magnesium 2.1 mg/dL (1.8-2.4) 02/08/20 15:52 Total Bilirubin 0.5 mg/dL (0.2-1.0) 02/08/20 15:52 Direct Bilirubin 0.1 mg/dL (0-0.2) 02/08/20 15:52 AST 8 U/L (15-37) L 02/08/20 15:52 ALT 8 U/L (12-78) L 02/08/20 15:52 Alkaline Phosphatase 77 U/L (45-117) 02/08/20 15:52 Rapid Troponin I < 0.02 ng/mL (0.0-0.045) 02/08/20 15:52 NT-Pro-B Natriuret Pep 40807 pg/mL (<125) H 02/08/20 15:52 Serum Total Protein 7.7 g/dL (6.4-8.2) 02/08/20 15:52 Albumin 3.2 g/dL (3.4-5.0) L 02/08/20 15:52 Globulin 4.5 g/dL (2.3-3.5) H 02/08/20 15:52 Albumin/Globulin Ratio 0.7 (1.1-1.8) L 02/08/20 15:52 Assessment & Plan - Problems (Diagnosis) (1) Urine retention Current Visit: Yes Status: Acute (2) Bilateral leg numbness Current Visit: Yes Status: Acute (3) Acute CVA (cerebrovascular accident) Current Visit: No Status: Acute (4) ESRD (end stage renal disease) Current Visit: No Status: Acute (5) DDD (degenerative disc disease) Current Visit: No Status: Chronic Qualifiers: Spinal region: lumbar Qualified Code(s): M51.36 - Other intervertebral disc degeneration, lumbar region (6) Diabetes mellitus type II, uncontrolled Onset Date: 10/08/15 Current Visit: No Status: Chronic Qualifiers: Glycemic state: with hyperglycemia Qualified Code(s): E11.65 - Type 2 diabetes mellitus with hyperglycemia (7) Diabetic gastroparesis Onset Date: 09/02/17 Current Visit: No Status: Chronic (8) Hyperlipidemia Onset Date: 03/03/17 Current Visit: No Status: Chronic Qualifiers: (9) Hypertension Onset Date: 03/03/17 Current Visit: No Status: Chronic Qualifiers: Hypertension type: essential hypertension Qualified Code(s): I10 - Essential (primary) hypertension Physician Review: Patient Assessed, Agree with Above Assessment and Plan Physician Review Additional Text: - New left CVA - unchnaged clinical finfings from CVA with left sided weakness 1 month ago - new worsneing numbness symptoms - follow with adjusted neurotin -New urine retention - patient state she was able to void in the past - bladder scan with high residual - will add bethenecol since hx of DM gastroparesis also ESRD- do HD today then swithc back to [facility] [place] possible dc in am Time Spent Managing Pts Care (In Minutes): 35
[2020-02-12] MEDS: HEPARIN 5000 UNIT/ML 1 ML VIAL SQ SCH ×3 (01:12→20:59)
[2020-02-12] MEDS: GABAPENTIN 100 MG CAP PO SCH ×3 (01:12→20:58)
[2020-02-12] MEDS: ATORVASTATIN 20 MG TAB PO SCH ×2 (01:13→20:58)
[2020-02-12] MEDS: INSULIN -REGULAR HUMAN 50 UNIT/0.5 ML ML SQ SCH ×5 (01:13→21:00)
[2020-02-12 06:14] LABS: Albumin 2.4 g/dL (3.4-5.0); Bilirubin Total 0.2 mg/dL (0.2-1.0); Phosphorus 3.7 mg/dL (2.5-4.9); Potassium 3.7 mmol/L (3.5-5.1); Protein, Total 5.8 g/dL (6.4-8.2)
[2020-02-12] MEDS: SEVELAMER CARBONATE 800 MG TABLET PO SCH ×3 (08:00→17:00)
[2020-02-12] MEDS: FUROSEMIDE 40 MG TABLET PO SCH ×2 (09:27→18:07)
[2020-02-12] MEDS: ASPIRIN EC 81 MG TAB PO SCH (09:28)
[2020-02-12] MEDS: SERTRALINE HCL 100 MG TAB PO SCH (09:28)
[2020-02-12] MEDS: CLOPIDOGREL 75 MG TABLET PO SCH (09:28)
[2020-02-12] MEDS: FOLIC ACID 1 MG TABLET PO SCH (09:29)
[2020-02-12] MEDS: METOCLOPRAMIDE 5 MG TAB PO SCH (09:29)
[2020-02-12] MEDS: BETHANECHOL 10 MG TAB PO SCH ×3 (09:29→21:03)
[2020-02-12] MEDS: carvediloL 6.25 MG TAB PO SCH ×2 (09:30→21:00)
--- NOTE | 2020-02-12 14:02 | P.PN ---
Subjective Date of Service: 02/12/20 Subjective: No new changes (still unable to void still high residual) Physical Examination - Vital Signs Temperature: 98.5 F Blood Pressure: 127/60 Pulse: 79 Respirations: 16 Pulse Ox (%): 98 - Physical Exam General: Alert, In no apparent distress, Oriented x3 HEENT: Atraumatic, Normocephalic Neck: 2+ carotid pulse no bruit, JVD not distended Respiratory: Clear to auscultation bilaterally, Normal air movement Cardiovascular: Normal pulses, Regular rate/rhythm, Normal S1 S2 Gastrointestinal: Normal bowel sounds, Soft and benign Musculoskeletal: No clubbing, No swelling Neurological: Normal speech, Normal strength at 5/5 x4 extr - Studies Medications List Reviewed: Yes Assessment And Plan - Current Problems (Diagnosis) (1) Urine retention Current Visit: Yes Status: Acute (2) Bilateral leg numbness Current Visit: Yes Status: Acute (3) Acute CVA (cerebrovascular accident) Current Visit: No Status: Acute (4) ESRD (end stage renal disease) Current Visit: No Status: Acute (5) DDD (degenerative disc disease) Current Visit: No Status: Chronic Qualifiers: Spinal region: lumbar Qualified Code(s): M51.36 - Other intervertebral disc degeneration, lumbar region (6) Diabetes mellitus type II, uncontrolled Onset Date: 10/08/15 Current Visit: No Status: Chronic Qualifiers: Glycemic state: with hyperglycemia Qualified Code(s): E11.65 - Type 2 diabetes mellitus with hyperglycemia (7) Diabetic gastroparesis Onset Date: 09/02/17 Current Visit: No Status: Chronic (8) Hyperlipidemia Onset Date: 03/03/17 Current Visit: No Status: Chronic Qualifiers: (9) Hypertension Onset Date: 03/03/17 Current Visit: No Status: Chronic Qualifiers: Hypertension type: essential hypertension Qualified Code(s): I10 - Ess ential (primary) hypertension Physician Review: Patient Assessed, Agree with Above Assessment and Plan Physician Review Additional Text: #New left CVA - unchanged clinical findings from CVA with left sided weakness 1 month ago -still persistent left sided numbness but improving with adjusted -Follow with adjusted Neurontin #New urine retention - still high residual , c/w started Bethanecol - patient state she was able to void in the past -since still post void > 400cc , will d/w with case mgt in am about arranging help with straight cath at home # DM gastroparesis -c/w regime #ESRD- c/w HD MWF -follow renal team # HTN -controlled possible dc in am Time Spent Managing PTS Care (In Minutes): 30
[2020-02-12] MEDS: NEPRO SHAKE 237 ML CAN PO SCH (21:00)
--- NOTE | 2020-02-12 23:28 | PN ---
Date of Progress Note: 02/11/2020 Chief Complaint: End-stage renal disease, on dialysis. History Of Present Illness: Patient has been dialyzing Thursday, Thursday, Thursday. She has history o f diabetes with complications including diabetic nephropathy, retinopathy, and severe neuropathy. Kodi herzog presented to the hospital because of left-sided weakness. Patient was found to have stroke. Cole villanueva is still complaining of left-sided weakness. Review of Systems: Denies PND, orthopnea. Physical Examination: Lungs: Diminished breath sounds at bases. Heart: S1, S2. Abdomen: Soft, benign. Extremities: Minimal edema. Impression And Plan: 1.End-stage renal disease. Patient has dialysis done on Thursday. Volemia is well controlled. 2.Anemia of chronic kidney disease. Hemoglobin level is 10.4. Monitor hemoglobin level and resume LIN[place]OD when hemoglobin is below 10. 3.Renal osteodystrophy. Continue renal diet and binders. Monitor phosphorus level. 4.Hypoalbuminemia. Continue protein supplement. TAMIKA/MODL Voice ID: [id number] Report ID: [id number]
--- NOTE | 2020-02-12 23:46 | PN ---
Date of Progress Note: 02/12/2020 Chief Complaint: End-stage renal disease, on dialysis. History Of Present Illness: Patient received dialysis on Thursday and volemia is well controlled. Patient developed urinary retention. Bladder scan was done and 400 mL was evacuated. Patient had catheter. Patient was dialyzed on Thursday. She denies PND, orthopnea. Physical Examination: Lungs: Diminished breath sounds at bases. Heart: S1, S2. Abdomen: Soft, benign. Extremities: Slight edema. Imaging: MRI of the brain was negative for any acute CVA, but there was advanced age atrophy and chronic ischemic pattern, stable from December 2019. Laboratory Data: Sodium 147, potassium 3.9, chloride 101, CO2 of 25, BUN 20, creatinine 5.13, glucose 275, calcium 8, phosphorus 4.4, albumin 2.6. Impression And Plan: 1. Transient ischemic attack, left-sided weakness, and numbness, improved back to baseline. MRI was negative for cerebrovascular accident. 2. End-stage renal disease. Volemia is stable. Electrolytes within normal limits. Patient will have dialysis tomorrow. 3. Urinary retention, improved. Patient had straight catheterization. 4. Diabetes mellitus. Continue insulin. 5. Essential hypertension, stable. Continue blood pressure medication. EB/MODL Voice ID: [id number] Report ID: [id number] [facility]TDD
[2020-02-13 06:26] LABS: Albumin 2.3 g/dL (3.4-5.0); Bilirubin Total 0.3 mg/dL (0.2-1.0); Phosphorus 5.2 mg/dL (2.5-4.9); Potassium 4.3 mmol/L (3.5-5.1); Protein, Total 5.6 g/dL (6.4-8.2)
[2020-02-13] MEDS ORDERED: INSULIN GLARGINE 100 UNITS/ML SQ SCH (08:00)
[2020-02-13] MEDS: SEVELAMER CARBONATE 800 MG TABLET PO SCH ×3 (08:00→16:41)
[2020-02-13] MEDS: BETHANECHOL 10 MG TAB PO SCH (09:00)
[2020-02-13] MEDS: ASPIRIN EC 81 MG TAB PO SCH (09:32)
[2020-02-13] MEDS: carvediloL 6.25 MG TAB PO SCH ×2 (09:33→21:00)
[2020-02-13] MEDS: FOLIC ACID 1 MG TABLET PO SCH (09:33)
[2020-02-13] MEDS: CLOPIDOGREL 75 MG TABLET PO SCH (09:33)
[2020-02-13] MEDS: HEPARIN 5000 UNIT/ML 1 ML VIAL SQ SCH ×2 (09:33→20:17)
[2020-02-13] MEDS: GABAPENTIN 100 MG CAP PO SCH ×2 (09:33→20:18)
[2020-02-13] MEDS: METOCLOPRAMIDE 5 MG TAB PO SCH (09:33)
[2020-02-13] MEDS: FUROSEMIDE 40 MG TABLET PO SCH ×2 (09:33→16:41)
[2020-02-13] MEDS: MULTIVITAMINS,THERAPEUT 1 TAB PO SCH (09:33)
[2020-02-13] MEDS: SERTRALINE HCL 100 MG TAB PO SCH (09:34)
[2020-02-13] MEDS: NEPRO SHAKE 237 ML CAN PO SCH ×2 (09:35→20:18)
[2020-02-13] MEDS: INSULIN -REGULAR HUMAN 50 UNIT/0.5 ML ML SQ SCH ×4 (09:35→20:18)
--- NOTE | 2020-02-13 11:27 | P.DS ---
Admission Date: 02/08/20 Discharge Date: 02/13/20 Primary Care Provider: none; Nephrology-Dr. Beckman Disposition: DC HOME/HOME HEALTH CARE Discharge Condition: FAIR Reason for Admission: Left sided weakness Consultations: Nephrology-Dr. Beckman Neurology-Dr. Alex Procedures: MRI Brain: FINDINGS: No intracranial hemorrhage, mass or acute infarction. There is no edema or shift of midline structures. No cortical edema or sulcal effacement. Advanced for age white matter signal abnormality present. This includes brainstem signal abnormality. Pattern matches prior December 2019 MRI study. Atrophy changes are present. Ventricles are in proportion to volume loss. Coffman- matter/white matter junction is preserved. Signal voids are seen as a normal finding in the major intracranial vessels. Bilateral globe deformities again noted. No acute globe or orbital finding. Mastoid air cells and paranasal sinuses are clear. IMPRESSION: No acute infarction. No hemorrhage, mass or acute intracranial finding. Advanced for age atrophy and chronic ischemic pattern, stable from December 2019. Medical Problem List: Left-sided weakness/numbness likely diabetic neuropathy with history of CVA with left-sided residual weakness Diabetes mellitus type 2 insulin-dependent with hyperglycemia Hypertension End-stage renal disease on hemodialysis Diabetic gastroparesis/retinopathy/neuropathy Depression with anxiety Hyperlipidemia Urinary retention resolved Brief History of Present Illness: 44-year-old female with multiple medical problems including hypertension, diabetes with diabetic retinopathy, depression, anxiety, history of thyroid cancer, hyperlipidemia, GERD, and end-stage renal disease on hemodialysis. Patient also with history of CVA with left-sided residual weakness. Patient recently discharge 12/26/2019 for similar symptoms. Patient was seen by neurology at that time. MRI was unremarkable. Patient states over the past 5 days she has been having numbness and tingling to the left upper extremity. Weakness also identified. Patient admitted for further evaluation and treatment. Hospital Course: Patient admitted due to left-sided weakness and numbness. Patient recently evaluated 12/26/2019 for similar symptoms. Patient with history of CVA with left-sided residual weakness. MRI unremarkable at that time. Repeat MRI at this time also unremarkable with no acute findings. Findings likely related to diabetic neuropathy. Patient may continue with gabapentin 100 mg 1 pill twice daily as needed for numbness. Education provided. Patient will continue her other home medications including aspirin 81 mg daily, Lipitor 20 mg daily, Plavi x 75 mg daily, and folic acid 1 mg daily. Patient may follow up with neurology as an outpatient to further monitor and address. Patient with underlying end-stage renal disease on hemodialysis. This has remained stable. Patient will continue with dialysis as directed. Recommend no use of nonsteroidal anti-inflammatories. Future medications will need to be renally dose. Patient will continue her home medications of Nepro supplementation 1 can twice daily, Lasix 80 mg 1 pill twice daily and Renvela 2400 mg 3 times a day. Patient will continue with a 1500 cc per day fluid restriction and low-salt diet. Recommend to monitor her weight daily. Recommend follow up with nephrology as directed. Patient with hypertension. Blood pressure stable this time. At discharge she will continue with her current medications-carvedilol 6.25 mg 1 pill twice daily. Recommend to maintain blood pressure less 150/80. Further adjustment can be done by her PCP. Patient with diabetes mellitus type 2 with noted diabetic gastroparesis, diabetic neuropathy, and diabetic neuropathy. Patient will continue with her current medication- Toujeo 10 units subcu daily and Humalog 15 units subcu 3 times a day. Patient also takes Reglan 10 mg daily for gastroparesis, gabapentin 100 mg twice daily as needed for neuropathy. Recommend to maintain blood sugar less 140 fasting and less than 200 meals. Further adjustment can be done by her PCP. Patient reported some urinary retention. Initial finding of residual postvoid greater than 400 cc. The following day she had 100 cc. No indication for catheter placement at this time. Patient with underlying end-stage renal disease. If this persists patient may require intermittent straight catheterization at home or consider long-term Lou catheter. Patient may follow up with urology as an outpatient to further monitor and address. Patient with Depression with anxiety. She will continue with her medication- Zoloft 100 mg daily. Patient would benefit with psychiatry evaluation as an outpatient due to her multiple admissions. Vital Signs/Physical Exam: Temp Pulse Resp BP Pulse Ox 99.1 F 69 18 132/63 96 02/13/20 08:00 02/13/20 09:33 02/13/20 08:00 02/13/20 09:33 02/13/20 08:00 General: Alert, Cooperative HEENT: Atraumatic Neck: Supple Respiratory: Clear to auscultation bilaterally, Normal air movement Cardiovascular: Normal pulses, Regular rate/rhythm Gastrointestinal: Normal bowel sounds Neurological: Normal speech, Other (Residual left-sided weakness) Other Physical/Emotional Findings: Patient is legally blind. Laboratory Data at Discharge: WBC 9.1 K/uL (4.3-10.9) 02/09/20 03:36 Hgb 10.4 g/dL (12.0-15.0) L 02/09/20 03:36 Hct 31.1 % (36.0-45.0) L 02/09/20 03:36 Plt Count 236 K/uL (152-406) D 02/09/20 03:36 PT 10.6 SECONDS (9.5-12.5) 02/08/20 15:52 INR 0.90 02/08/20 15:52 Sodium 137 mmol/L (136-145) 02/13/20 05:18 Potassium 4.3 mmol/L (3.5-5.1) 02/13/20 05:18 BUN 31 mg/dL (7-18) H 02/13/20 05:18 Creatinine 5.92 mg/dL (0.55-1.3) H* D 02/13/20 05:18 Glucose 399 mg/dL (74-106) H 02/13/20 05:18 Phosphorus 5.2 mg/dL (2.5-4.9) H 02/13/20 05:18 Magnesium 2.1 mg/dL (1.8-2.4) 02/09/20 03:36 Total Bilirubin 0.3 mg/dL (0.2-1.0) 02/13/20 05:18 AST 18 U/L (15-37) 02/13/20 05:18 ALT 28 U/L (12-78) 02/13/20 05:18 Alkaline Phosphatase 181 U/L (45-117) H 02/13/20 05:18 Triglycerides 142 mg/dL (<150) 02/09/20 03:36 Cholesterol 130 mg/dL (<200) 02/09/20 03:36 HDL Cholesterol 39 mg/dL (40-60) L 02/09/20 03:36 Cholesterol/HDL Ratio 3.33 02/09/20 03:36 Home Medications: Aspirin 81 mg PO DAILY 12/23/19 Gabapentin 100 mg PO BID 12/23/19 Insulin Lispro [Humalog] 15 unit SQ TIDWM 12/23/19 Metoclopramide HCl [Reglan] 10 mg PO DAILY 12/23/19 Sertraline [Zoloft*] 100 mg PO DAILY 12/23/19 Sevelamer Carbonate [Renvela*] 2,400 mg PO TIDWM #90 tablet 12/24/19 Clopidogrel Bisulfate [Plavix*] 75 mg PO DAILY #30 tablet 12/26/19 Docusate [Colace Cap*] 100 mg PO DAILY PRN #30 cap 12/26/19 Folic Acid 1 mg PO DAILY #30 tablet 12/26/19 Atorvastatin Calcium [Lipitor] 20 mg PO BEDTIME 02/09/20 Furosemide [Lasix] 1 tab PO BID 02/09/20 Insulin Glargine,Hum.rec.anlog [Tounaila Choi Solostar] 10 unit SQ DAILY 02/09/20 carvediloL [Coreg*] 6.25 mg PO BID 02/09/20 Nepro Shake [Nepro*] 250 ml PO BID #60 can 02/13/20 New Medications: Nepro Shake [Nepro*] 250 ml PO BID #60 can Patient Discharge Instructions: 1. Recommend follow up with PCP within 1 week to follow up this hospitalization. 2. Patient admitted due to left-sided weakness and numbness. Patient recently evaluated 12/26/2019 for similar symptoms. Patient with history of CVA with left-sided residual weakness. MRI unremarkable at that time. Repeat MRI at this time also unremarkable with no acute findings. Findings likely related to diabetic neuropathy. Patient may continue with gabapentin 100 mg 1 pill twice daily as needed for numbness. Education provided. Patient will continue her other home medications including aspirin 81 mg daily, Lipitor 20 mg daily, Plavix 75 mg daily, and folic acid 1 mg daily. Patient may follow up with neurology as an outpatient to further monitor and address. 3. Patient with underlying end-stage renal disease on hemodialysis. This has remained stable. Patient will continue with dialysis as directed. Recommend no use of nonsteroidal anti-inflammatories. Future medications will need to be renally dose. Patient will continue her home medications of Nepro supplementation 1 can twice daily, Lasix 80 mg 1 pill twice daily and Renvela 2400 mg 3 times a day. Patient will continue with a 1500 cc per day fluid restriction and low-salt diet. Recommend to monitor her weight daily. Recommend follow up with nephrology as directed. 4. Patient with hypertension. Blood pressure stable this time. At discharge she will continue with her current medications-carvedilol 6.25 mg 1 pill twice daily. Recommend to maintain blood pressure less 150/80. Further adjustment can be done by her PCP. 5. Patient with diabetes mellitus type 2 with noted diabetic emmett roparesis, diabetic neuropathy, and diabetic neuropathy. Patient will continue with her current medication- Toujeo 10 units subcu daily and Humalog 15 units subcu 3 times a day. Patient also takes Reglan 10 mg daily for gastroparesis, gabapentin 100 mg twice daily as needed for neuropathy. Recommend to maintain blood sugar less 140 fasting and less than 200 meals. Further adjustment can be done by her PCP. 6. Patient reported some urinary retention. Initial finding of residual postvoid greater than 400 cc. The following day she had 100 cc. No indication for catheter placement at this time. Patient with underlying end- stage renal disease. If this persists patient may require intermittent straight catheterization at home or consider long-term Lou catheter. Patient may follow up with urology as an outpatient to further monitor and address. 7. Patient with Depression with anxiety. She will continue with her medication- Zoloft 100 mg daily. Patient would benefit with psychiatry evaluation due to her multiple admissions. Diet: Renal Activity: Fall precautions Followup: Nael Beckman MD [ACTIVE - CAN ADMIT] - 1-2 Weeks (Call to make an appointment. ) Len Alex MD [ASSOCIATE-ACTIVE - CAN ADMIT] - Time spent managing pt's care (in minutes): 55
[2020-02-13] MEDS ORDERED: NA CHLORIDE 0.9% 250 ML IV ONE ×2 (12:46→13:15)
[2020-02-13] MEDS ORDERED: NA CHLORIDE 0.9% 250 ML ONE (12:55)
[2020-02-13] MEDS: MIDODRINE HCL 5 MG TABLET PO SCH ×2 (12:58→20:19)
[2020-02-13] MEDS ORDERED: NA CHLORIDE 0.9% 1,000 ML IV SCH (14:00)
[2020-02-13 14:42] LABS: Basophils % 0.7 % (0-1.3); Hematocrit 31.8 % (36.0-45.0); Lymphocytes % 6.3 % (15.3-44.8); MPV 9.2 fL (7.6-11.3); RBC Red Blood Cell Count 3.29 M/uL (3.86-4.86)
[2020-02-13 16:30] LABS: Anisocytosis 1+; Blood Morphology Comment NOTED (NOT SEEN); Platelet Estimate ADEQ; Poikilocytosis 1+; Urine White Blood Cell Casts OK
[2020-02-13] MEDS: ATORVASTATIN 20 MG TAB PO SCH (20:18)
--- NOTE | 2020-02-14 00:20 | PN ---
Date of Progress Note: 02/13/2020 Chief Complaint: End-stage renal disease, hypotension. Dialysis was scheduled today, but was postponed because the patient developed sudden onset of hypoten angel. Patient received IV fluids to prevent severe hypotension. Patient had IV bolus with normal sa line of 1 L. Subsequently, midodrine was started to prevent hypotension. Yesterday, patient was sta rted on Bethanechol for urinary retention, which probably was contributory to hypotensive episode. Cole villanueva is transferred to ICU for monitoring and to continue blood pressure support as needed with pre ssors. Review of Systems: Patient denies PND, orthopnea. Physical Examination: Lungs: Diminished breath sounds at bases. Heart: S1, S2. Abdomen: Soft, benign. Extremities: Left-sided weakness, numbness. Impression And Plan: 1.End-stage renal disease. Patient received dialysis on Thursday. Today, there is no fluid overload. Electrolytes are stable. Dialysis will be postponed until tomorrow. Plan is stabilize blood press ure in ICU and continue pressors as needed. 2.Blood pressure medication, on hold. 3.Urinary retention. Patient may need intermittent catheterization. 4.Hypoalbuminemia. Continue protein intake with protein supplement. EB/MODL Voice ID: [id number] Report ID: [id number]
[2020-02-14] MEDS: HYDROCODONE/APAP 10/325 TAB PO PRN (02:43)
[2020-02-14 05:35] LABS: Albumin 2.2 g/dL (3.4-5.0); Bilirubin Total 0.3 mg/dL (0.2-1.0); Phosphorus 5.4 mg/dL (2.5-4.9); Potassium 4.6 mmol/L (3.5-5.1); Protein, Total 5.7 g/dL (6.4-8.2)
[2020-02-14] MEDS: FUROSEMIDE 40 MG TABLET PO SCH ×2 (07:44→17:34)
[2020-02-14] MEDS: carvediloL 6.25 MG TAB PO SCH (07:44)
[2020-02-14] MEDS: INSULIN -REGULAR HUMAN 50 UNIT/0.5 ML ML SQ SCH ×3 (08:17→16:30)
[2020-02-14] MEDS: FOLIC ACID 1 MG TABLET PO SCH (08:18)
[2020-02-14] MEDS: GABAPENTIN 100 MG CAP PO SCH (08:18)
[2020-02-14] MEDS: MIDODRINE HCL 5 MG TABLET PO SCH ×2 (08:18→14:00)
[2020-02-14] MEDS: SERTRALINE HCL 100 MG TAB PO SCH (08:18)
[2020-02-14] MEDS: HEPARIN 5000 UNIT/ML 1 ML VIAL SQ SCH (08:19)
[2020-02-14] MEDS: SEVELAMER CARBONATE 800 MG TABLET PO SCH ×3 (08:19→17:33)
[2020-02-14] MEDS: ASPIRIN EC 81 MG TAB PO SCH (08:19)
[2020-02-14] MEDS: CLOPIDOGREL 75 MG TABLET PO SCH (08:19)
[2020-02-14] MEDS: NEPRO SHAKE 237 ML CAN PO SCH (08:20)
[2020-02-14] MEDS: MULTIVITAMINS,THERAPEUT 1 TAB PO SCH (08:48)
[2020-02-14] MEDS: METOCLOPRAMIDE 5 MG TAB PO SCH (08:48)
--- NOTE | 2020-02-14 11:23 | P.DS ---
Admission Date: 02/13/20 Discharge Date: 02/14/20 Primary Care Provider: none; Nephrology-Dr. Beckman Discharge Condition: FAIR Reason for Admission: Left sided weakness Consultations: Nephrology-Dr. Beckman Neurology-Dr. Alex Procedures: MRI Brain: FINDINGS: No intracranial hemorrhage, mass or acute infarction. There is no edema or shift of midline structures. No cortical edema or sulcal effacement. Advanced for age white matter signal abnormality present. This includes brainstem signal abnormality. Pattern matches prior December 2019 MRI study. Atrophy changes are present. Ventricles are in proportion to volume loss. Coffman- matter/white matter junction is preserved. Signal voids are seen as a normal finding in the major intracranial vessels. Bilateral globe deformities again noted. No acute globe or orbital finding. Mastoid air cells and paranasal sinuses are clear. IMPRESSION: No acute infarction. No hemorrhage, mass or acute intracranial finding. Advanced for age atrophy and chronic ischemic pattern, stable from December 2019. 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 Patient also with history of CVA with left-sided residual weakness. Patient recently discharge 12/26/2019 for similar symptoms. Patient was seen by neurology at that time. MRI was unremarkable. Patient states over the past 5 days she has been having numbness and tingling to the left upper extremity. Weakness also identified. Patient admitted for further evaluation and treatment. Hospital Course: Patient admitted due to left-sided weakness and numbness. Patient recently evaluated 12/26/2019 for similar symptoms. Patient with history of CVA with left-sided residual weakness. MRI unremarkable at that time. Repeat MRI at this time also unremarkable with no acute findings. Findings likely related to diabetic neuropathy. Patient may continue with gabapentin 100 mg 1 pill twice daily as needed for numbness. Education provided. Patient will continue her other home medications including aspirin 81 mg daily, Lipitor 20 mg daily, Plavix 75 mg daily, and folic acid 1 mg daily. Patient may follow up with neurology as an outpatient to further monitor and address. Patient with underlying end-stage renal disease on hemodialysis. This has remained stable. Patient will continue with dialysis as directed. Recommend no use of nonsteroidal anti-inflammatories. Future medications will need to be renally dose. Patient will continue her home medications of Nepro supplementation 1 can twice daily, Lasix 80 mg 1 pill twice daily and Renvela 2400 mg 3 times a day. Patient will continue with a 1500 cc per day fluid restriction and low-salt diet. Recommend to monitor her weight daily. Recommend follow up with nephrology as directed. Patient with hypertension. Patient was given bethanechol for urinary retention. This caused hypotension. Patient required transfer to ICU for close monitoring. Bethanechol was discontinued. Blood pressure now stable. Blood pressure stable off medication at this time. At discharge she will continue with her current medications-carvedilol 6.25 mg 1 pill twice daily but hold medication if blood pressure less than 120 systolic. Recommend to maintain blood pressure less 150/80. Further adjustment can be done by her PCP. Patient with diabetes mellitus type 2 with noted diabetic gastroparesis, diabetic neuropathy, and diabetic neuropathy. Patient will continue with her current medication- Toujeo 10 units subcu daily and Humalog 15 units subcu 3 times a day. Patient also takes Reglan 10 mg daily for gastroparesis, gabapentin 100 mg twice daily as needed for neuropathy. Recommend to maintain blood sugar less 140 fasting and less than 200 meals. Further adjustment can be done by her PCP. Patient reported some urinary retention. Patient was given medication bethanechol which caused hypotension. This was discontinued. Patient hypotension resolved. Case discussed in detail with nephrology. This is likely neurogenic bladder. Will help arrange for intermittent self urinary catheterizations. Social work will help with resource to obtain straight catheter for home. Education on intermittent self urinary catheterizations will be addressed prior to discharge. This includes family members. Recommend follow up with urology as an outpatient to further monitor and address. Patient with Depression with anxiety. She will continue with her medication- Zoloft 100 mg daily. Patient would benefit with psychiatry evaluation as an outpatient due to her multiple admissions. Vital Signs/Physical Exam: Temp Pulse Resp BP Pulse Ox 97.5 F 63 12 124/49 L 96 02/14/20 04:00 02/14/20 05:53 02/14/20 05:53 02/14/20 05:53 02/14/20 05:53 General: Alert, In no apparent distress, Cooperative HEENT: Atraumatic Neck: Supple Respiratory: Clear to auscultation bilaterally, Normal air movement Cardiovascular: Normal pulses, Regular rate/rhythm Gastrointestinal: Normal bowel sounds, Soft and benign, Non-distended, No masses, No rebound, No guarding Musculoskeletal: No erythema, No tenderness, No warmth Neurological: Abnormal strength (Left-sided residual weakness.) Other Physical/Emotional Findings: Patient is legally blind. Laboratory Data at Discharge: WBC 15.4 K/uL (4.3-10.9) H D 02/13/20 14:04 Hgb 9.8 g/dL (12.0-15.0) L 02/13/20 14:04 Hct 31.8 % (36.0-45.0) L 02/13/20 14:04 Plt Count 220 K/uL (152-406) 02/13/20 14:04 PT 10.6 SECONDS (9.5-12.5) 02/08/20 15:52 INR 0.90 02/08/20 15:52 Sodium 137 mmol/L (136-145) 02/14/20 04:31 Potassium 4.6 mmol/L (3.5-5.1) 02/14/20 04:31 BUN 46 mg/dL (7-18) H 02/14/20 04:31 Creatinine 7.08 mg/dL (0.55-1.3) H* D 02/14/20 04:31 Glucose 279 mg/dL (74-106) H 02/14/20 04:31 Phosphorus 5.4 mg/dL (2.5-4.9) H 02/14/20 04:31 Magnesium 2.1 mg/dL (1.8-2.4) 02/09/20 03:36 Total Bilirubin 0.3 mg/dL (0.2-1.0) 02/14/20 04:31 AST 9 U/L (15-37) L 02/14/20 04:31 ALT 21 U/L (12-78) 02/14/20 04:31 Alkaline Phosphatase 157 U/L (45-117) H 02/14/20 04:31 Triglycerides 142 mg/dL (<150) 02/09/20 03:36 Cholesterol 130 mg/dL (<200) 02/09/20 03:36 HDL Cholesterol 39 mg/dL (40-60) L 02/09/20 03:36 Cholesterol/HDL Ratio 3.33 02/09/20 03:36 Home Medications: Aspirin 81 mg PO DAILY 12/23/19 Gabapentin 100 mg PO BID 12/23/19 Insulin Lispro [Humalog] 15 unit SQ TIDWM 12/23/19 Metoclopramide HCl [Reglan] 10 mg PO DAILY 12/23/19 Sertraline [Zoloft*] 100 mg PO DAILY 12/23/19 Sevelamer Carbonate [Renvela*] 2,400 mg PO TIDWM #90 tablet 12/24/19 Clopidogrel Bisulfate [Plavix*] 75 mg PO DAILY #30 tablet 12/26/19 Docusate [Colace Cap*] 100 mg PO DAILY PRN #30 cap 12/26/19 Folic Acid 1 mg PO DAILY #30 tablet 12/26/19 Atorvastatin Calcium [Lipitor] 20 mg PO BEDTIME 02/09/20 Furosemide [Lasix] 1 tab PO BID 02/09/20 Insulin Glargine,Hum.rec.anlog [Toujeo Max Solostar] 10 unit SQ DAILY 02/09/20 carvediloL [Coreg*] 6.25 mg PO BID 02/09/20 Nepro Shake [Nepro*] 250 ml PO BID #60 can 02/13/20 New Medications: Nepro Shake [Nepro*] 250 ml PO BID #60 can Patient Discharge Instructions: 1. Recommend follow up with PCP within 1 week to follow up this hospitalization. 2. Patient admitted due to left-sided weakness and numbness. Patient recently evaluated 12/26/2019 for similar symptoms. Patient with history of CVA with left-sided residual weakness. MRI unremarkable at that time. Repeat MRI at this time also unremarkable with no acute findings. Findings likely related to diabetic neuropathy. Patient may continue with gabapentin 100 mg 1 pill twice daily as needed for numbness. Education provided. Patient will continue her other home medications including aspirin 81 mg daily, Lipitor 20 mg daily, Plavix 75 mg daily, and folic acid 1 mg daily. Patient may follow up with neurology as an outpatient to further monitor and address. 3. Patient with underlying end-stage renal disease on hemodialysis. This has remained stable. Patient will continue with dialysis as directed. Recommend no use of nonsteroidal anti-inflammatories. Future medications will need to be renally dose. Patient will continue her home medications of Nepro supplementation 1 can twice daily, Lasix 80 mg 1 pill twice daily and Renvela 2400 mg 3 times a day. Patient will continue with a 1500 cc per day fluid restriction and low-salt diet. Recommend to monitor her weight daily. Recommend follow up with nephrology as directed. 4. Patient with hypertension. Patient was given bethanechol for urinary retention. This caused hypotension. Patient required transfer to ICU for close monitoring. Bethanechol was discontinued. Blood pressure now stable. Blood pressure stable off medication at this time. At discharge she will continue with her current medications-carvedilol 6.25 mg 1 pill twice daily but hold medication if blood pressure less than 120 systolic. Recommend to maintain blood pressure less 150/80. Further adjustment can be done by her PCP. 5. Patient with diabetes mellitus type 2 with noted diabetic gastroparesis, diabetic neuropathy, and diabetic neuropathy. Patient will continue with her current medication- Toujeo 10 units subcu daily and Humalog 15 units subcu 3 times a day. Patient also takes Reglan 10 mg daily for gastroparesis, gabapentin 100 mg twice daily as needed for neuropathy. Recommend to maintain blood sugar less 140 fasting and less than 200 meals. Further adjustment can be done by her PCP. 6. Patient reported some urinary retention. Patient was given medication bethanechol which caused hypotension. This was discontinued. Patient hypotension resolved. Case discussed in detail with nephrology. This is likely neurogenic bladder. Will help arrange for intermittent self urinary catheterizations. Social work will help with resource to obtain straight catheter for home. Education on intermittent self urinary catheterizations will be addressed prior to discharge. This includes family members. Recommend follow up with urology as an outpatient to further monitor and address. 7. Patient with Depression with anxiety. She will continue with her medication-Zoloft 100 mg daily. Patient would benefit with psychiatry evaluation as an outpatient due to her multiple admissions. Diet: Renal Activity: Fall precautions Followup: Nael Beckman MD [ACTIVE - CAN ADMIT] - 1-2 Weeks (Call to make an appointment. ) Len Alex MD [ASSOCIATE-ACTIVE - CAN ADMIT] - Time spent managing pt's care (in minutes): 55
--- NOTE | 2020-02-14 11:51 | PN ---
Date of Progress Note: 02/14/2020 Subjective: Patient was admitted with altered mental status. Patient poor compliant with dialysis. Patient had urine retention, was started on treatment, unfortunately developed hypotension. For that reason, has been discontinued. Patient still has significant postvoid today. Physical Examination: Vital Signs: Blood pressure of 124/49, pulse of 63, afebrile. Chest: Clear to auscultation. Heart: S1, S2. Regular. Systolic murmur. Abdomen: Soft, nontender. Mild dullness on the suprapubic area. Extremities: No edema. Neurologic: Alert. No focality. Patient legally blind. Laboratory Data: WBC 15.4, H and H 9.8/31.8, platelets 220. Sodium 137, potassium 4.6, bicarb 25, BUN 46, creatinine 7, calcium 7.7, phosphorus 5.4, albumin 2.2. Current Medications: The patient on include; 1. Aspirin. 2. Midodrine 5 t.i.d. 3. Epogen. 4. Carvedilol. 5. Atorvastatin. 6. Gabapentin. 7. Zoloft. 8. Lasix 80 b.i.d. 9. Renvela. 10. Folic acid. 11. Insulin. Assessment And Plan: 1. End-stage renal disease. We will continue the patient on dialysis. I am going to go ahead and decrease further her carvedilol to maintain better blood pressure and we will hold the blood pressure medication on dialysis. 2. Altered mental status with weakness. Follow up with neuro. 3. Hyponatremia secondary to renal failure. We will be corrected on dialysis, resolved currently. 4. Hypertension, currently low blood pressure. Decrease carvedilol. Continue midodrine. CASSIE/KERI Voice ID: [id number] Report ID: [id number] DAYANARA
[2020-02-14 13:09] VITALS: O2SAT 96
[2020-02-14] MEDS: EPOETIN 4,000 UNIT/ML VIAL IV SCH (14:25)
[2020-02-14 17:48] VITALS: TEMP 97.5
[2020-02-14 18:20] LABS: Urine Appearance TURBID; Urine Bilirubin NEGATIVE (NEG); Urine Blood 1+ (NEG); Urine Color YELLOW; Urine Glucose NEGATIVE (NEG); Urine Protein 3+ (NEG); Urine Urobilinogen 0.2 mg/dL (0.2-1.0); Urine pH 7.5 (5.0-7.0)
[2020-02-14 18:21] VITALS: BP 153/65
[2020-02-14 18:29] LABS: Urine Microscopic Reflex ORDER UMIC
[2020-02-14 18:37] LABS: Urine Bacteria LOADED /HPF (<20); Urine Culture Reflex Order REFLEXED; Urine RBC <5 /HPF (NONE SEEN)
[2020-02-14] MEDS ORDERED: carvediloL 3.125 MG TAB PO SCH (21:00)
== END 2020-02-14 19:08 | disposition home health service (06) | DRG 73 ==
LOC: ER 14:22 → ERHOLD 17:23 → 2ND 18:41 → 3RD-ICU 02-13 13:25 → OBSVTOIN 02-13 15:29
PROVIDERS: ADMIT Family Medicine; ATTEND Family Medicine
PROC: 5A1D70Z Performance of Urinary Filtration, Intermittent, Less than 6 Hours Per Day (ICD-10-PCS; principal; 2020-02-11)
DX: E11.40 Type 2 diabetes mellitus with diabetic neuropathy, unspecified (principal); N18.6 End stage renal disease; I69.354 Hemiplegia and hemiparesis following cerebral infarction affecting left non-dominant side; I12.0 Hypertensive chronic kidney disease with stage 5 chronic kidney disease or end stage renal disease; N25.81 Secondary hyperparathyroidism of renal origin; E87.1 Hypo-osmolality and hyponatremia; K21.9 Gastro-esophageal reflux disease without esophagitis; E78.5 Hyperlipidemia, unspecified; Z99.2 Dependence on renal dialysis; H54.8 Legal blindness, as defined in USA; Z90.49 Acquired absence of other specified parts of digestive tract; E11.22 Type 2 diabetes mellitus with diabetic chronic kidney disease; J44.9 Chronic obstructive pulmonary disease, unspecified; F41.8 Other specified anxiety disorders; E11.319 Type 2 diabetes mellitus with unspecified diabetic retinopathy without macular edema; E11.65 Type 2 diabetes mellitus with hyperglycemia; E11.43 Type 2 diabetes mellitus with diabetic autonomic (poly)neuropathy; K31.84 Gastroparesis; E78.2 Mixed hyperlipidemia; Z11.59 Encounter for screening for other viral diseases; Z79.4 Long term (current) use of insulin; Z79.891 Long term (current) use of opiate analgesic; Z79.899 Other long term (current) drug therapy; Z85.850 Personal history of malignant neoplasm of thyroid; F17.210 Nicotine dependence, cigarettes, uncomplicated; R29.705 NIHSS score 5; D63.8 Anemia in other chronic diseases classified elsewhere; R33.9 Retention of urine, unspecified; D63.1 Anemia in chronic kidney disease; N25.0 Renal osteodystrophy; M51.36 Other intervertebral disc degeneration, lumbar region; I95.9 Hypotension, unspecified; Z79.82 Long term (current) use of aspirin; Z79.02 Long term (current) use of antithrombotics/antiplatelets
CPT/HCPCS: 36415; 70450; 70551; 71045; 80048; 80053; 80061; 80069; 80076; 81003; 81015; 82947; 83735; 83880; 84100; 84145; 84484; 85025; 85610; 87040; 87086; 87088; 90935; 92610; 93005; 94760; 96374; 97110; 97112; 97116; 97161; 97530; 99285; G0257; G0378; J0360; J1644; J2270; J2405; J7030; Q5105; U0002

== ENCOUNTER 2020-02-17 21:34 | Emergency (ER) | payer OTHER ==
--- OUTSIDE RECORDS SUMMARY | 2020-02-17 21:38 | XMS REPORT | Clinical Summary ---
:[address] 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 ([facility]); Other specified hypothyroidism; Acute metabolic encephalopathy; DELMA (acute kidn ey injury) ([facility]) 07/15/2019 Travel 07/15/2019 Documentation Internal Medicine Negar Douglas MD after 02/16/2019 Family History Medical History Relation Name Comments [...] Taken Blood Pressure 163/76 07/18/2019 11:00 AM PROTOTYPE ENGINEER MANAGER Pulse 85 07/18/2019 11:00 AM PROTOTYPE ENGINEER MANAGER Temperature 36.5 C (97.7 F) 07/18/2019 11:00 AM PROTOTYPE ENGINEER MANAGER Respiratory Rate 18 07/18/2019 11:00 AM PROTOTYPE ENGINEER MANAGER Oxygen Saturation 98% 07/18/2019 11:00 AM PROTOTYPE ENGINEER MANAGER Inhaled Oxygen Concentration - - Weight 98.8 kg (217 lb 13 oz) 07/16/2019 5:08 PM PROTOTYPE ENGINEER MANAGER Height 162.6 cm (5' 4") 07/15/2019 9:22 PM PROTOTYPE ENGINEER MANAGER Body Mass Index 37.39 07/16/2019 5:08 PM PROTOTYPE ENGINEER MANAGER Plan of Treatment Health Maintenance Due Date [...] PROCEDURE - 07/21/2019 8:51 ENDOSCOPY SCAN AM PROTOTYPE ENGINEER MANAGER RHYTHM STRIP - SCAN 07/21/2019 8:50 AM PROTOTYPE ENGINEER MANAGER XR CHEST 1 VIEW STAT 07/18/2019 11:09 Results for this PORTABLE/BEDSIDE AM PROTOTYPE ENGINEER MANAGER procedure a re in the results section. POCT-GLUCOSE METER Routine 07/18/2019 8:22 Resul ts for this AM PROTOTYPE ENGINEER MANAGER procedure are i n the results section. CBC W/PLT COUNT & AUTO Routine 07/18/2019 4:37 R esults for this DIFFERENTIAL AM PROTOTYPE ENGINEER MANAGER procedure are i n the results section. CBC W/PLT COUNT & AUTO Routine 07/18/2019 4:37 R esults for this DIFFERENTIAL AM PROTOTYPE ENGINEER MANAGER procedure are i n the results section. PROTHROMBIN TIME/INR Routine 07/18/2019 4:37 Res ults for this AM PROTOTYPE ENGINEER MANAGER procedure are i n the results section. PHOSPHORUS Routine 07/18/2019 4:37 Results for this AM PROTOTYPE ENGINEER MANAGER procedure are i n the results section. MAGNESIUM Routine 07/18/2019 4:37 Results for this AM PROTOTYPE ENGINEER MANAGER procedure are i n the results section. BASIC METABOLIC PANEL Routine 07/18/2019 4:37 Re sults for this (7) AM PROTOTYPE ENGINEER MANAGER procedure are i n the results section. POCT-GLUCOSE METER Routine 07/17/2019 8:56 Resul ts for this PM PROTOTYPE ENGINEER MANAGER procedure are i n the results section. POCT-GLUCOSE METER Routine 07/17/2019 5:07 Resul ts for this PM PROTOTYPE ENGINEER MANAGER procedure are i n the results section. POCT-GLUCOSE METER Routine 07/17/2019 12:28 Resul ts for this PM PROTOTYPE ENGINEER MANAGER procedure are i n the results section. SCREEN, URINE Routine 07/17/2019 11:36 Results for this AM PROTOTYPE ENGINEER MANAGER procedure are i n the results section. POCT-GLUCOSE METER Routine 07/17/2019 7:18 Resul ts for this AM PROTOTYPE ENGINEER MANAGER procedure are i n the results section. CBC W/PLT COUNT & AUTO Routine 07/17/2019 5:55 R esults for this DIFFERENTIAL AM PROTOTYPE ENGINEER MANAGER procedure are i n the results section. CBC W/PLT COUNT & AUTO Routine 07/17/2019 5:55 R esults for this DIFFERENTIAL AM PROTOTYPE ENGINEER MANAGER procedure are i n the results section. PROTHROMBIN TIME/INR Routine 07/17/2019 5:55 Res ults for this AM PROTOTYPE ENGINEER MANAGER procedure are i n the results section. PHOSPHORUS Routine 07/17/2019 5:55 Results for this AM PROTOTYPE ENGINEER MANAGER procedure are i n the results section. MAGNESIUM Routine 07/17/2019 5:55 Results for this AM PROTOTYPE ENGINEER MANAGER procedure are i n the results section. BASIC METABOLIC PANEL Routine 07/17/2019 5:55 Re sults for this (7) AM PROTOTYPE ENGINEER MANAGER procedure are i n the results section. MR BRAIN WITHOUT IV Routine 07/17/2019 12:54 Resu lts for this CONTRAST AM PROTOTYPE ENGINEER MANAGER procedure are i n the results section. MRA NECK WITHOUT IV Routine 07/17/2019 12:54 Resu lts for this CONTRAST AM PROTOTYPE ENGINEER MANAGER procedure are i n the results section. MRA HEAD WITHOUT IV Routine 07/17/2019 12:54 Resu lts for this CONTRAST AM PROTOTYPE ENGINEER MANAGER procedure are i n the results section. ECHOCARDIOGRAM REPORT - 07/16/2019 9:20 SCAN PM PROTOTYPE ENGINEER MANAGER POCT-GLUCOSE METER Routine 07/16/2019 9:03 Resul ts for this PM PROTOTYPE ENGINEER MANAGER procedure are i n the results section. HEMODIALYSIS INPATIENT Routine 07/16/2019 5:23 R esults for this PM PROTOTYPE ENGINEER MANAGER procedure are i n the results section. POCT-GLUCOSE METER Routine 07/16/2019 5:21 Resul ts for this PM PROTOTYPE ENGINEER MANAGER procedure are i n the results section. HEPATITIS B SURFACE Routine 07/16/2019 1:41 Resu lts for this ANTIGEN PM PROTOTYPE ENGINEER MANAGER procedure are i n the results section. POCT-GLUCOSE METER Routine 07/16/2019 1:01 Resul ts for this PM PROTOTYPE ENGINEER MANAGER procedure are i n the results section. POCT-GLUCOSE METER Routine 07/16/2019 12:03 Resul ts for this PM PROTOTYPE ENGINEER MANAGER procedure are i n the results section. 2D ECHO W/ DOPPLER Routine 07/16/2019 11:13 Resul ts for this (CW/PW/COLOR) AM PROTOTYPE ENGINEER MANAGER procedure are in the results section. BASIC METABOLIC PANEL Routine 07/16/2019 8:40 Re sults for this (7) AM PROTOTYPE ENGINEER MANAGER procedure are i n the results section. POCT-GLUCOSE METER Routine 07/16/2019 8:05 Resul ts for this AM PROTOTYPE ENGINEER MANAGER procedure are i n the results section. ECG 12-LEAD STAT 07/16/2019 7:43 Results for this AM PROTOTYPE ENGINEER MANAGER procedure are i n the results section. POCT-GLUCOSE METER Routine 07/16/2019 7:30 Resul ts for this AM PROTOTYPE ENGINEER MANAGER procedure are i n the results section. XR CHEST 1 VIEW Routine 07/16/2019 7:04 Results for this PORTABLE/BEDSIDE AM PROTOTYPE ENGINEER MANAGER procedure a re in the results section. POCT-GLUCOSE METER Routine 07/16/2019 5:21 Resul ts for this AM PROTOTYPE ENGINEER MANAGER procedure are i n the results section. BASIC METABOLIC PANEL STAT 07/16/2019 5:14 Re sults for this (7) AM PROTOTYPE ENGINEER MANAGER procedure are i n the results section. HEMOGLOBIN A1C Routine 07/16/2019 3:50 Results f or this AM PROTOTYPE ENGINEER MANAGER procedure are i n the results section. CBC W/PLT COUNT & AUTO Routine 07/16/2019 3:49 R esults for this DIFFERENTIAL AM PROTOTYPE ENGINEER MANAGER procedure are i n the results section. CBC W/PLT COUNT & AUTO Routine 07/16/2019 3:49 R esults for this DIFFERENTIAL AM PROTOTYPE ENGINEER MANAGER procedure are i n the results section. LIPID PANEL Routine 07/16/2019 3:49 Results for this AM PROTOTYPE ENGINEER MANAGER procedure are i n the results section. PHOSPHORUS Routine 07/16/2019 3:49 Results for this AM PROTOTYPE ENGINEER MANAGER procedure are i n the results section. MAGNESIUM Routine 07/16/2019 3:49 Results for this AM PROTOTYPE ENGINEER MANAGER procedure are i n the results section. HEPATIC FUNCTION PANEL Routine 07/16/2019 3:49 R esults for this AM PROTOTYPE ENGINEER MANAGER procedure are i n the results section. BASIC METABOLIC PANEL Routine 07/16/2019 3:49 Re sults for this (7) AM PROTOTYPE ENGINEER MANAGER procedure are i n the results section. HIV-1 ANTIGEN WITH Routine 07/16/2019 3:48 Resul ts for this HIV-1/2 ANTIBODY AM PROTOTYPE ENGINEER MANAGER procedure a re in the results section. RPR Routine 07/16/2019 3:48 Results for this AM PROTOTYPE ENGINEER MANAGER procedure are i n the results section. VITAMIN B12 AND FOLATE Routine 07/16/2019 3:48 R esults for this AM PROTOTYPE ENGINEER MANAGER procedure are i n the results section. TSH/FREE T4 IF Routine 07/16/2019 3:48 Results f or this INDICATED AM PROTOTYPE ENGINEER MANAGER procedure are i n the results section. PROTHROMBIN TIME/INR Routine 07/16/2019 3:48 Res ults for this AM PROTOTYPE ENGINEER MANAGER procedure are i n the results section. POCT-GLUCOSE METER Routine 07/16/2019 3:34 Resul ts for this AM PROTOTYPE ENGINEER MANAGER procedure are i n the results section. after 02/16/2019 Results EKG-SCANNED (07/21/2019 8:51 AM PROTOTYPE ENGINEER MANAGER) Narrative Performed At This result has an attachment that is no t available. RHYTHM STRIP - SCAN (07/21/2019 8:50 AM PROTOTYPE ENGINEER MANAGER) Narrative Performed At This result has an attachment that is no t available. XR chest 1 view portable / bedside (07/18/2019 11:09 AM PROTOTYPE ENGINEER MANAGER)Only the most recent of2 resultswithin the time period is included. Specimen Narrative Performed At FINAL REPORT [employer] RAD, CHEST, 1 VIEW, NON DEPT INDICATION: r/o pneumonia COMPARISON: July 16, 2019 FINDINGS: Portable frontal view of the c hest. IMPRESSION: Support Lines: Stable left IJ dual-lumen central venous catheter. Lungs and pleura: Lungs are clear. No ef fusion. No pneumothorax. Heart and mediastinum: Stable contours. Additional findings: None. Signed: JR Mccollum Robert MD Report Verified Date/Time:07/18/2019 11:27:35 Reading Location: [employer] y Reading Room Procedure Note Interface, External Ris In - 07/18/2019 11:29 AM PROTOTYPE ENGINEER MANAGER FINAL REPORT RAD, CHEST, 1 VIEW, NON [...] Verified Date/Time: 07/18/2019 1 1:27:35 Reading Location: [employer] y Reading Room Performing Organization Address City/[facility] [place] Phone Number [employer] POC-Glucose meter (07/18/2019 8:22 AM PROTOTYPE ENGINEER MANAGER)Only the most recent of13 results within the time period is included. POC-Glucose Meter 126 (H)Comment: : TESTED 70 - 110 mg/dL [facility] AT [address], [address]: Biology Intern/Neurology Stroke Physician ID = [id number] for Baldomero Kuo Specimen Blood Performing Organization Address City/[facility] [place] Phone Number [facility] [address] [address] CENTER CBC with platelet count + automated diff (07/18/2019 4:37 AM PROTOTYPE ENGINEER MANAGER)Only the most recent of3 resultswithin the time period is included. WBC 13.0 (H) 3.5 - 10.5 K/L [facility] RBC 3.80 (L) 3.93 - 5.22 M/L [facility] Hemoglobin 11.3 11.2 - 15.7 GM/DL [facility] Hematocrit 35.2 34.1 - 44.9 % [facility] MCV 92.6 79.4 - 94.8 fL [facility] MCH 29.7 25.6 - 32.2 pg [facility] MCHC 32.1 (L) 32.2 - 35.5 GM/DL [facility] RDW 13.6 11.7 - 14.4 % [facility] Platelets 233 150 - 450 K/CU MM [facility] MPV 9.5 9.4 - 12.3 fL [facility] nRBC 0 0 - 0 /100 WBC [facility] % Neutros 70 % [facility] % Lymphs 20 % [facility] % Monos 7 % [facility] % Eos 2 % [facility] % Baso 1 % [facility] # Neutros 9.09 (H) 1.56 - 6.13 K/L [facility] # Lymphs 2.65 1.18 - 3.74 K/L [facility] # Monos 0.93 (H) 0.24 - 0.36 K/L [facility] # Eos 0.24 0.04 - 0.36 K/L [facility] # Baso 0.07 0.01 - 0.08 K/L [facility] Immature Granulocytes-Relative 0 0 - 1 % C [facility] Specimen Blood Performing Organization Address City/[facility] [place] Phone Number [address] [address] CENTER Prothrombin time/INR (07/18/2019 4:37 AM PROTOTYPE ENGINEER MANAGER)Only the most recent of3 results within the time period is included. Protime 12.2 11.9 - 14.2 seconds [facility] INR 1.0 <=5.9 [facility] Specimen Blood Narrative Performed At Effective 01/12/2019: PT Reference Range [facility] Change New: 11.9-14.2Previous: 11.7-14.7 RECOMMENDED COUMADIN/WARFARIN INR THERAPY RANGES STANDARD DOSE: 2.0-3.0Includes: PROPHYLAXIS for venous thrombosis, systemic embolization; TREATMENT for venous thrombosis and/or pulmonary embolus. HIGH RISK: Target INR is 2.5-3.5 for patients wiht mechanical heart valves. Performing Organization Address [facility] [place] Phone Number [address] [address] CENTER Phosphorus (07/18/2019 4:37 AM PROTOTYPE ENGINEER MANAGER)Only the most recent of3 resultswithin the time period is included. Phosphorus 4.6 2.3 - 4.7 mg/dL [facility] Specimen Blood Performing Organization Address City/[facility]/Zipcode Phone Number [address] [address] CENTER Magnesium (07/18/2019 4:37 AM PROTOTYPE ENGINEER MANAGER)Only the most recent of3 resultswithin the time period is included. Magnesium 2.0 1.6 - 2.6 mg/dL [facility] Specimen Blood Performing Organization Address City/[facility]/Zipcode Phone Number [address] [address] [place] Basic metabolic panel (07/18/2019 4:37 AM PROTOTYPE ENGINEER MANAGER)Only the most recent of5 results within the time period is included. Sodium 134 (L) 136 - 145 meq/L [facility] Potassium 5.0 3.5 - 5.1 meq/L [facility] Chloride 103 98 - 107 meq/L [facility] CO2 25 22 - 29 meq/L [facility] BUN 28 (H) 7 - 21 mg/dL [facility] Creatinine 5.40 (H) 0.57 - 1.25 mg/dL [facility] Glucose 146 (H) 70 - 105 mg/dL [facility] Calcium 8.8 8.4 - 10.2 mg/dL [facility] EGFR 9Comment: ESTIMATED GFR IS mL/min/1.73 sq m [facility] NOT ACCURATE CREATININE [facility] CLEARANCE IN PREDICTING GLOMERULAR FILTRATION RATE. ESTIMATED GFR IS NOT APPLICABLE FOR DIALYSIS PATIENTS. Specimen Blood Performing Organization Address [facility] [place] Phone Number [address] [address] [place] Screen, urine (07/17/2019 11:36 AM PROTOTYPE ENGINEER MANAGER) Preg Test, Ur Negative [facility] Specimen Urine Performing Organization Address [facility]/Zipcode Phone Number [place] [phone] [place] [address] [place] MR brain without IV contrast (07/17/2019 12:54 AM PROTOTYPE ENGINEER MANAGER) Specimen Narrative Performed At FINAL REPORT [facility] MR, BRAIN, WITHOUT CONTRAST, MR, MRA, NE [...] External Ris In - 07/17/2019 4:57 AM PROTOTYPE ENGINEER MANAGER FINAL REPORT MR, BRAIN, WITHOUT CONTRAST, MR, [...] 3:28:33 Performing Organization Address City/State/Zipcode Phone Number [facility] MR MRA neck without contrast (07/17/2019 12:54 AM PROTOTYPE ENGINEER MANAGER) Specimen Narrative Performed At FINAL REPORT [facility] MR, BRAIN, WITHOUT CONTRAST, MR, MRA, NE [...] External Ris In - 07/17/2019 4:57 AM PROTOTYPE ENGINEER MANAGER FINAL REPORT MR, BRAIN, WITHOUT CONTRAST, MR, [...] 3:28:33 Performing Organization Address City/State/Zipcode Phone Number [facility] MR MRA head without contrast (07/17/2019 12:54 AM PROTOTYPE ENGINEER MANAGER) Specimen Narrative Performed At FINAL REPORT [employer] LOVELY MR, BRAIN, WITHOUT CONTRAST, MR, MRA, [...] External Ris In - 07/17/2019 4:57 AM PROTOTYPE ENGINEER MANAGER FINAL REPORT MR, BRAIN, WITHOUT CONTRAST, MR, [...] 3:28:33 Performing Organization Address City/State/Zipcode Phone Number [employer] RIS ECHOCARDIOGRAM REPORT - SCAN (07/16/2019 9:20 PM PROTOTYPE ENGINEER MANAGER) Narrative Performed At This result has an attachment that is no t available. HEMODIALYSIS INPATIENT (07/16/2019 5:23 PM PROTOTYPE ENGINEER MANAGER) Narrative Performed At Jeff Mcduffie RN 06/195:24 [...] Hepatitis B surface antigen (07/16/2019 1:41 PM PROTOTYPE ENGINEER MANAGER) HBsAg Screen Nonreactive Nonreactive [facility] CENTER Specimen Blood Performing Organization Address City/State/Zipcode Phone Number [facility] MED[facility] [address] [place] [address] CENTER 2D Echo W/Doppler(CW/PW/Color) (07/16/2019 11:13 AM PROTOTYPE ENGINEER MANAGER) Ejection Fraction [facility] ECHO HEAR TLAB MKCKESSON CPA Specimen Narrative Performed At Transthoracic Echocardiography Report (T TE) [facility] ECHO HEARTLAB MKCKESSON CPACS Demographics Patient NameSPeyman HUTCHINSON of Study07/16/2019 Gender Female Visit [id number] Race Unknown [id number] Number Date of 1975 ReferringMaoud [facility] Phys[facility] Age 43 year(s) SonographerDaja Arthur [facility] Bricklayer Tender Yanna McdonaldInterpreting Marcella Yanez MD [facility] Physician Procedure Type of Study TTE procedure:2DECHO [...] External Ris In - 07/16/2019 2:11 PM PROTOTYPE ENGINEER MANAGER Transthoracic Echocardiography Report (TTE) Demographics Patient Name ARCHANA WOO Date of St udy 07/16/2019 Gender Female Visit Number [id number] Race Unknown [facility] r [id number] Number Date of 1975 Referring Arvin Ann Physician Age 43 year(s) Sonographe r Daja Arthur, [facility] Bricklayer Tender Yanna Blanchardi MD Oscar Dupont Physician Procedure [...] City/State/Zipcode Phone Number [facility] ECHO HEARTLAB MKCKESSON [facility] ECG 12 lead (07/16/2019 7:43 AM PROTOTYPE ENGINEER MANAGER) Specimen Narrative Performed At Ventricular Rate 87 BPM GE MUSE Atrial Rate 87 BPM P-R Interval 136 ms QRS Duration 72 ms Q-T Interval 380 ms QTC Calculation(Bazett) 457 ms P Gould 68 degrees R Gould 17 degrees T Gould 65 degrees Normal sinus rhythm Normal ECG When compared with ECG of 19-MAR-2017 15 :16, QT has shortened Confirmed by MD GUTIÉRREZ YOCHAI ([id number]) on 07/18/2019 7:35:43 AM Procedure Note Interface, External Ris In - 07/18/2019 7:35 AM PROTOTYPE ENGINEER MANAGER Ventricular Rate 87 BPM Atrial Rate 87 BPM P-R Interval 136 ms QRS Duration 72 ms Q-T Interval 380 ms QTC Calculation(Bazett) 457 ms P Gould 68 degrees R Gould 17 degrees T Gould 65 degrees Normal sinus rhythm Normal ECG When compared with ECG of 19-MAR-2017 15 :16, QT has shortened Confirmed by MD GUTIÉRREZ YOCHAI ([id number]) on 07/18/2019 7:35:43 AM Performing Organization Address City/[facility] [place] Phone Number GE MUSE Hemoglobin A1c (07/16/2019 3:50 AM PROTOTYPE ENGINEER MANAGER) Hemoglobin A1C 9.5 (H) 4.3 - 6.1 % [facility] Specimen Blood Performing Organization Address [facility] Phone Number [address] [address] CENTER Hepatic function panel (07/16/2019 3:49 AM PROTOTYPE ENGINEER MANAGER) Protein, Total 6.3 6.0 - 8.3 gm/dL [facility] Albumin 3.0 (L) 3.5 - 5.0 g/dL [facility] Total Bilirubin 0.4 0.2 - 1.2 mg/dL [facility] Bilirubin, Direct 0.2 0.1 - 0.5 mg/dL [facility] Alkaline Phosphatase 182 (H) 40 - 150 U/L [facility] AST 63 (H) 5 - 34 U/L [facility] ALT 99 (H) 6 - 55 U/L [facility] Specimen Blood Performing Organization Address [facility] [place] Phone Number [address] [address] [place] Lipid panel (07/16/2019 3:49 AM PROTOTYPE ENGINEER MANAGER) Triglycerides 100 mg/dL [facility] Cholesterol 177 mg/dL [facility] HDL 48 mg/dL [facility] LDL Calculated 109 mg/dL [facility] Specimen Blood Narrative Performed At Triglyceride Reference Range: [facility] Low Risk <150 [id number] High Risk 200-499 Very High Risk>=500 Cholesterol Reference Range: Low Risk <200 [id number] High Risk>240 HDL Cholesterol Reference Range: Low Risk >=60 High Risk <40 LDL Cholesterol Reference Range: Optimal<100 Near [id number] Very High >=190 Performing Organization Address City/State/Zipcode Phone Number [address] [phone] [place] Vitamin B12 and Folate (07/16/2019 3:48 AM PROTOTYPE ENGINEER MANAGER) Vitamin B12 525 213 - 816 pg/mL [facility] Folate 6.5 (L) >=7.0 ng/mL [facility] Specimen Blood Performing Organization Address City/[facility] [place] Phone Number [address] [address] [place] TSH/Free T4 If Indicated (07/16/2019 3:48 AM PROTOTYPE ENGINEER MANAGER) TSH 0.87 0.35 - 4.94 uIU/mL [facility] Specimen Blood Performing Organization Address City/[facility]/Zipcode Phone Number [address] [address] [place] HIV-1 Antigen with HIV-1/2 Antibody (07/16/2019 3:48 AM PROTOTYPE ENGINEER MANAGER) HIV-1 Antigen with HIV 1&2 Nonreactive Nonreactive [facility] Specimen Blood Performing Organization Address City/State/Zipcode Phone Number [facility] [address] [place] [address] CENTER RPR (07/16/2019 3:48 AM PROTOTYPE ENGINEER MANAGER) RPR Nonreactive Nonreactive [facility] Specimen Blood Performing Organization Address City/State/Zipcode Phone Number [facility] [address] [place] [address] CENTER after 02/16/2019 Insurance Payer Benefit Plan / Subscriber ID Type Phone Address Group [facility] MEDICARE xxxxxxxxx MEDICARE MGD CARE HMO MEDICAID - MEDICAID [place] [employer] xxxxxxxxx Medicaid Contracted MGD CARE PLAN Advance Directives For more information, please contact:[place] [phone] [place], [place] [phone] Code Status Date Activated Date Inactivated Comments Full Code 07/16/2019 12:46 AM 07/18/2019 4:56 PM This code status was determined by: Patient Full Code 03/14/2017 8:30 PM 03/20/2017 12:11 PM This code status was determined by: Patient
--- OUTSIDE RECORDS SUMMARY | 2020-02-17 21:42 | XMS REPORT | Continuity of Care Document ---
:1975 Author Organization [facility] t Address [address] [place] [address] Care Team Providers Name Role Phone Stella REYNOSO Attending Clinician Seth REYNOSO Attending Clinician Graham Schultz MD Attending Clinician Raphael REYNOSO Attending Clinician STLELA Attending Clinician Unavailable LYN EDWARDS Attending Clinician Unavailable Graham SCHULTZ Admitting Clinician Unavailable LYN EDWARDS Admitting Clinician Unavailable Payers Payer Name Policy Policy Number Effective Expiration Source Type Date Date [facility] - xxxxxxxxx [facility] t MEDICARE MGD CAREUNITED L ukes - MEDICARE HMOxxxxxxxxx [facility] MEDICAID - MEDICAID MGD xxxxxxxxx [facility] CAREMCD COMM STAR [facility] - PLANxxxxxxxxxMedicaid [facility] Contracted Center Problems Condition Condition Condition Status Onset Resolution Last Treating Co mments Source Name Details Category Date Date Treatment Clinician Date Left sided Left sided Disease Active 2018-[address] numbness numbness 09-15 [facility] - 00:[facility]: Medical 00 [place] ESRD on ESRD on Disease Active 2018-[address] [facility] dialysis dialysis 09-15 [facility] - 00:[facility]: Medical 00 [place] Proteinuri Proteinuri Disease Active [facility] [...] 03-16 [facility] - encephalop encephalop 00:00: Ms dical athy athy 00 Center Cerebrovas Cerebrovas [...] 03-15 Carolann kes - phageal phageal 00:[facility]: [facility] reflux reflux 00 [place] disease) disease) COPD COPD Disease Active [facility] ([facility]ronic (chronic 03-15 [facility] - obstructiv obstructiv 00:00: Ms dical e e 00 Center pulmonary pulmonary [...] 7-30 Carolann kes - y y 00:00: [place] [address] Center Allergies, Adverse Reactions, Alerts Allergy Allergy Status Severity Reaction(s) Onset Inactive Treating Comm ents Source Name Type Date Date Clinician No Known DA Active [facility] 08-22 [place] 00:[facility]: [address] Family History Family Member Diagnosis Comments Start Date Stop Date Source Natural father Hypertension [facility] Natural mother Diabetes [facility] Natural mother Kidney disease [facility] Social History Social Habit Start Date Stop Date Quantity Comments Source Sex Assigned At [facility] Smoking Status Start Date Stop Date Source Current every day smoker 2019-07-16 00:00:00 [facility] Medications Ordered Filled Start Stop Current Ordering [...] for 30 days. cyclobenzap 2018-08 Yes 2.5mg Q.[id number] Take 2.[address] rine 0-16 [id number] mg by [facility] - (FLEXERIL) 00:00: 3D mouth 3 Medi ghassan 5 MG tablet 00 (three) Cente r times daily. DULoxetine 2018-08 Yes 30mg QD Take [address] (CYMBALTA) 0-16 by mouth [facility] - 30 MG 00:00: daily. Medical capsule [address] [place] [address] famotidine 2018-08 Yes 20mg QD Take 20 [...] Center needed for Anxiety. busPIRone Yes 10mg Q.[id number] Take [address] (BUSPAR) 10 7-30 [id number] by mouth 3 [facility] - MG tablet [...] Source Systolic blood 2019-07-18 11:00:00 163 mm[Hg] [facility] Diastolic blood 2019-07-18 11:00:00 76 mm[Hg] [facility] S t [facility] pressure [facility] Heart rate 2019-07-18 11:00:00 85 /min [facility] Body temperature 2019-07-18 11:00:00 36.5 Mallory [facility] Respiratory rate 2019-07-18 11:00:00 18 /min [facility] Oxygen saturation in 2019-07-18 11:00:00 98 /min [facility] - Arterial blood by Medical Ce nter Pulse oximetry Body weight Measured 2019-07-16 17:08:00 98.8 kg [facility] BMI 2019-07-16 17:08:00 37.39 kg/m2 [facility] Body height 2019-07-15 21:22:00 162.6 cm [facility] Procedures Procedure Date / Time Performing Clinician Source Performed REPORT OF PROCEDURE - 2019-07-21 08:51:04 Provider, Default [facility] ENDOSCOPY SCAN Scanning [facility] RHYTHM STRIP - SCAN 2019-07-21 08:50:54 Provider, Default [facility] XR CHEST 1 VIEW 2019-07-18 11:09:00 Ann Lim [facility] PORTABLE/BEDSIDE [facility] POCT-GLUCOSE METER 2019-07-18 08:22:00 Ann Lim [facility] BASIC METABOLIC PANEL (7) 2019-07-18 04:37:00 [facility] MAGNES[facility]UM 2019-07-18 04:37:00 [facility] PHOSPHORUS 2019-07-18 04:37:00 [facility] PROTHROMBIN TIME/INR 2019-07-18 04:37:00 [facility] CBC W/PLT COUNT & AUTO 2019-07-18 04:37:00 [facility] POCT-GLUCOSE METER 2019-07-17 20:56:00 Shania Schultz [facility] POCT-GLUCOSE METER 2019-07-17 17:07:00 Shania Schultz [facility] POCT-GLUCOSE METER 2019-07-17 12:28:00 Shania Schultz [facility] SCREEN, URINE 2019-07-17 11:36:00 Ann Cook [facility] POCT-GLUCOSE METER 2019-07-17 07:18:00 Shania Schultz [facility] BASIC METABOLIC PANEL (7) 2019-07-17 05:55:00 [facility] MAGNESIUM 2019-07-17 05:55:00 [facility] PHOSPHORUS 2019-07-17 05:55:00 [facility] PROTHROMBIN TIME/INR 2019-07-17 05:55:00 [facility] CBC W/PLT COUNT & AUTO 2019-07-17 05:55:00 [facility] MRA HEAD WITHOUT IV 2019-07-17 00:54:[address] [facility] [place] [place] MRA NECK WITHOUT IV 2019-07-17 00:54:[address] [facility] [place] MR BRAIN WITHOUT IV 2019-07-17 00:54:[address] [facility] [place] ECHOCARDIOGRAM REPORT - 2019-07-16 21:20:18 Provider, Default [facility] POCT-GLUCOSE METER 2019-07-16 21:03:00 Shania Schultz [facility] HEMODIALYSIS INPATIENT 2019-07-16 17:23:31 Ashwin Cole [facility] POCT-GLUCOSE METER 2019-07-16 17:21:00 Shania Schultz [facility] HEPATITIS B SURFACE 2019-07-16 13:41:00 Ashwin Cole [facility] POCT-GLUCOSE METER 2019-07-16 13:01:00 Shania Schultz [facility] POCT-GLUCOSE METER 2019-07-16 12:03:00 Shania Schultz [facility] 2D ECHO W/ DOPPLER 2019-07-16 11:13:59 [facility] (CW/PW/COLOR) [facility] BASIC METABOLIC PANEL (7) 2019-07-16 08:40:00 [facility] POCT-GLUCOSE METER 2019-07-16 08:05:00 Shania Schultz [facility] ECG 12-LEAD 2019-07-16 07:43:10 [facility] POCT-GLUCOSE METER 2019-07-16 07:30:00 [facility] 2019-07-16 07:04:00 [facility] PORTABLE/BEDSIDE Medical [place] POCT-GLUCOSE METER 2019-07-16 05:21:00 [facility] BASIC METABOLIC PANEL (7) 2019-07-16 05:14:00 [facility] HEMOGLOBIN A1C 2019-07-16 03:50:00 [facility] BASIC METABOLIC PANEL (7) 2019-07-16 03:49:00 [facility] HEPATIC FUNCTION PANEL 2019-07-16 03:49:00 [facility] MAGNESIUM 2019-07-16 03:49:00 [facility] PHOSPHORUS 2019-07-16 03:49:00 [facility] LIPID PANEL 2019-07-16 03:49:00 [facility] CBC W/PLT COUNT & AUTO 2019-07-16 03:49:00 [facility] PROTHROMBIN TIME/INR 2019-07-16 03:48:00 [facility] TSH/FREE T4 IF INDICATED 2019-07-16 03:48:00 [facility] VITAMIN B12 AND FOLATE 2019-07-16 03:48:00 [facility] RPR 2019-07-16 03:48:00 [facility] HIV-1 ANTIGEN WITH HIV-1/2 2019-07-16 03:48:00 Arvin Ann [facility] POCT-GLUCOSE METER 2019-07-16 03:34:00 Arvin Ann [facility] [id number] 2019-05-18 00:00:00 ENCPL [id number] 2019-05-18 00:00:00 ENCPL [id number] 2019-05-18 00:00:00 ENCPL [id number] 2019-05-18 00:00:00 ENCPL Plan of Care Planned [...] es - Test 00:00:00 [facility]) [code = 156240038] Future Scheduled [address] [facility] - Test 00:00:00 2-64 YEARS AT RISK (1 [facility] of 3 - PCV13) [code = PNEUMOCOCCAL VACCINE 2-64 YEARS AT RISK (1 of 3 - PCV13)] Encounters Start End Encounter Admission Attending Care Care Encounter Source Date/Time Date/Time Type Type Clinicians Facility Department ID 2019-04-12 Inpatient [facility] [id number] [facility] W 13:57:46 Results Test Description Test Time [...] to HBV infection.~~~~~ ~~~~~~~~~~~~~~~~~~~~~~~~~~~~~~~~~~~~~~~~~~~~~~~~~~~~~~~ AG HEPATITIS B [id number] 18:16:00 Test Item Value Reference Range Interpretation Comments AG HEPATITIS B SURFACE (test code = NEGATIVE NONREACTIVE HBSAG) HIV 12 AB [id number] 18:16:00 Test Item Value Reference Range Interpretation Comments HIV 1 2 COMBO AG/AB SCREEN AB/AG NON REACTIVE NONREACTIVE (test code = [id number]) HEPATITIS B SURF AB, [id number] 17:51:00 Test Item Value Reference Range Interpretation Comments HEPATITIS B SURF AB, QUANT (test code mIU/mL = HBSABQ) AG HEPATITIS B [id number] 17:51:00 Test Item Value Reference Range Interpretation Comments AG HEPATITIS B SURFACE (test code = NEGATIVE NONREACTIVE HBSAG) HIV 12 AB [id number] 17:51:00 Test Item Value Reference Range Interpretation Comments HIV 1 2 COMBO AG/AB SCREEN AB/AG NON REACTIVE NONREACTIVE (test code = [id number]) HEPATITIS B SURF AB, [id number] 17:39:00 Test Item Value Reference Range Interpretation Comments HEPATITIS B SURF AB, QUANT (test code mIU/mL = HBSABQ) AG HEPATITIS B [id number] 17:39:00 Test Item Value Reference Range Interpretation Comments AG HEPATITIS B SURFACE (test code = NEGATIVE NONREACTIVE HBSAG) HIV 12 AB [id number] 17:39:00 Test Item Value Reference Range Interpretation Comments HIV 1 2 COMBO AG/AB SCREEN (test code = NONREACTIVE [id number]) GLUCOSE BEDSIDE [id number] 12:00:00 Test Item Value Reference Range Interpretation Comments GLUCOSE BEDSIDE TESTING (test code 136 MG/DL 60-99 H = GLUBED) GLUCOSE BEDSIDE [id number] 21:08:00 Test Item Value Reference Range Interpretation Comments GLUCOSE BEDSIDE TESTING (test code = 84 MG/DL 60-99 N GLUBED) BASIC METABOLIC [id number] 16:40:00 Test Item Value Reference Range Interpretation [...] 9.0 MG/DL 8.4-10.2 N CA) HCG SERUM [id number] 16:40:00 Test Item Value Reference Range Interpretation Comments HCG SERUM QUAL (test code = HCGQL) NEGATIVE NEGATIVE A PROTHROMBIN [id number] 16:32:00 Test Item Value Reference Range Interpretation [...] sunshine embolism. 3.0 - 4.5 Comments to Nurse Rn Bsn: PREOPPTT [id number] 16:32:00 Test Item Value Reference Range Interpretation Comments PTT ACTIVATED (test code = APTT) 30.3 SECONDS 22.0-33.0 N Comments to Nurse Rn Bsn: PREOPBASIC METABOLIC [id number] 16:32:00 Test Item Value Reference Range Interpretation [...] code = CA) MG/DL 8.7-9.7 HCG SERUM [id number] 16:32:00 Test Item Value Reference Range Interpretation Comments HCG SERUM QUAL (test code = HCGQL) NEGATIVE NEGATIVE A BASIC METABOLIC [id number] 16:31:00 Test Item Value Reference Range Interpretation [...] code = CA) MG/DL 8.7-9.7 HCG SERUM [id number] 16:31:00 Test Item Value Reference Range Interpretation Comments HCG SERUM QUAL (test code = HCGQL) NEGATIVE CBC W/AUTO [id number] 16:25:00 Test Item Value Reference Range Interpretation [...] 0.00 K/mm3 0.0-0.1 N NRBC#) GLUCOSE BEDSIDE [id number] 18:41:00 Test Item Value Reference Range Interpretation Comments GLUCOSE BEDSIDE TESTING (test code = 83 MG/DL 60-99 N GLUBED) BASIC METABOLIC [id number] 15:04:00 Test Item Value Reference Range Interpretation [...] 9.1 MG/DL 8.4-10.2 N CA) BASIC METABOLIC [id number] 15:00:00 Test Item Value Reference Range Interpretation [...] code = CA) MG/DL 8.7-9.7 HCG SERUM [id number] 14:59:00 Test Item Value Reference Range Interpretation Comments HCG SERUM QUAL (test code = HCGQL) NEGATIVE NEGATIVE A PROTHROMBIN [id number] 14:56:00 Test Item Value Reference Range Interpretation [...] syste sunshine embolism. 3.0 - 4.5 PTT [id number] 14:56:00 Test Item Value Reference Range Interpretation Comments PTT ACTIVATED (test code = APTT) 27.9 SECONDS 22.0-33.0 N CBC W/AUTO [id number] 14:43:00 Test Item Value Reference Range Interpretation [...] N NRBC#) RAD, CHEST, 1 VIEW, NON [id number] 11:27:00Reason for exam:->r/o pneumoniaShould this be performed [...] MDReport Verified Date/Time: 07/18/2019 11:27:35 Reading Location: [facility] Radiology Reading Room XR chest 1 view portable / [id number] 11:27:00 Interface, External Ris In 07/18/2019 11:29 [...] Robert MDReport Verified Date/Time: 07/18/201911:27:35 Reading Location: [facility] Radiology Reading [facility] [id number] 08:34:00 Test Item Value Reference Range Interpretation Comments POC-Glucose Meter (test 126 mg/dL 70-110 H : TE STED AT [facility] code = 1538) [address] [facility], 770 30: Quality Systems Technician/Techni tammy ID = [id number] for Lenoar Kuo onregulo Lab Interpretation (test Abnormal code = 98165-5) [facility]-GLUCOSE [id number] 08:34:00 Test Item Value Reference Range Interpretation Comments POC-GLUCOSE METER 126 mg/dL 70-110 H : TESTED A T [facility] 6720 (BEAKER) (test code = [facility] Isabel [facility], 1538) [address]484: Quality Systems Technician/Techni tammy ID = [id number] for Baldomero Carney ECG 12 [id number] 07:35:45Interface, External Ris In - 07/18/2019 7:35 AM CSTVentricular Rate 87 BPMAtrial Rate 87 BPMP-R Interval 136 msQRS Duration 72 msQ-T Interval 380 msQTC Calculation(Bazett) 457 msP Lake 68 degreesR Lake 17 degreesT Lake 65 degreesNormal sinus rhythmNormal ECGWhen compared with ECG of 19-MAR-2017 15:16,QT has shortenedConfirmed by MD BROCK, LAKSHMI ([id number]) on 07/18/2019 7:35:43 [facility] metabolic [id number] 06:56:00 Test Item Value Reference Range Interpretation [...] Calcium (test code = 8.8 mg/dL 8.4-10.2 53824-5) EGFR (test code = 9 mL/min/1.73 [place] [address]-3) NOT ACCURATE CREATININE CLEARANCE IN PREDICTING GLOMERULAR FILTRATION RATE . ESTIMATED GFR I S NOT APPLICABLE FOR DIALYSIS PATIEN TS. Lab Interpretation Abnormal (test code = 48716-8) [facility] METABOLIC [id number] 06:56:00 Test Item Value Reference Range Interpretation [...] S NOT APPLICABLE FOR DIALYSIS PATIEN TS. [id number] 06:45:00 Test Item Value Reference Range Interpretation Comments Magnesium (test code = 69242-9) 2.0 mg/dL 1.6-2.6 Lab Interpretation (test code = Normal 11506-0) [facility] 06:45[facility]00 Test Item Value Reference Range Interpretation Comments Phosphorus (test code = 2777-1) 4.6 mg/dL 2.3-4.7 Lab Interpretation (test code = Normal 08176-9) [facility]2019-12-02 06:45:00 Test Item Value Reference Range Interpretation Comments PHOSPHORUS (BEAKER) (test code = 4.6 mg/dL 2.3-4.7 604) [id number] 06:45:00 Test Item Value Reference Range Interpretation Comments MAGNESIUM (BEAKER) (test code = 2.0 mg/dL 1.6-2.6 627) CBC with platelet count + automated [id number] 05:35:00 Test Item Value Reference Range Interpretation [...] 450 K/CU MM MPV (test code = 22380-2) 9.5 fL 9.4-12.3 nRBC (test code = [...] 2801) Lab Interpretation (test code = Abnormal 69334-7) [facility] W/PLT COUNT & AUTO [id number] 05:35:00 Test Item Value Reference Range Interpretation [...] PERCENT (BEAKER) (test code = 2801) Prothrombin time/[id number] 05:24:00 Test Item Value Reference Range Interpretation [...] valves. Lab Interpretation Normal (test code = 07313-1) [facility]/[id number] 05:24:00 Test Item Value Reference Range Interpretation [...] is2.5-3.5 for patients wiht mechanical heart valves.POCT-GLUCOSE [id number] 21:08:00 Test Item Value Reference Range Interpretation Comments POC-GLUCOSE METER 191 mg/dL 70-110 H : TESTED A T [facility] 6720 ([employer]) (test code = [facility], 1538) [address]: Quality Systems Technician/Techni tammy ID = [id number] for eKith Quintero POCT-GLUCOSE [id number] 17:20:00 Test Item Value Reference Range Interpretation Comments POC-GLUCOSE METER 168 mg/dL 70-110 H : TESTED A T [facility] 6720 ([employer]) (test code = [facility] [employer] [facility], 1538) 38503: Quality Systems Technician/Techni tammy ID = [id number] for HU NT, MAVIS POCT-GLUCOSE [id number] 12:49:00 Test Item Value Reference Range Interpretation Comments POC-GLUCOSE METER 221 mg/dL 70-110 H : TESTED A T [facility] 6720 (BEAKER) (test code = [facility] FXTrip [facility], 1538) 53612: Quality Systems Technician/Techni tammy ID = [id number] for HU NT, MAVIS Screen, [id number] 11:54:00 Test Item Value Reference Range Interpretation Comments Preg Test, Ur (test code = 2112-1) Negative [facility], [id number] 11:54:00 Test Item Value Reference Range Interpretation Comments TEST URINE (BEAKER) (test Negative code = 583) POCT-GLUCOSE [id number] 09:11:00 Test Item Value Reference Range Interpretation Comments POC-GLUCOSE METER 112 mg/dL 70-110 H : TESTED A T [facility] 6720 (BEAKER) (test code = [facility] [employer] [facility], 1538) 95687: Quality Systems Technician/Techni tammy ID = [id number] for MAVIS GARRIDO BASIC METABOLIC [id number] 06:50:00 Test Item Value Reference Range Interpretation [...] S NOT APPLICABLE FOR DIALYSIS PATIEN TS. [id number] 06:38:00 Test Item Value Reference Range Interpretation Comments PHOSPHORUS (BEAKER) (test code = 3.9 mg/dL 2.3-4.7 604) [id number] 06:38:00 Test Item Value Reference Range Interpretation Comments MAGNESIUM (BEAKER) (test code = 1.9 mg/dL 1.6-2.6 627) PROTHROMBIN TIME/[id number] 06:12:00 Test Item Value Reference Range Interpretation [...] mechanical heart valves.CBC W/PLT COUNT & AUTO [id number] 06:06:00 Test Item Value Reference Range Interpretation [...] 0-1 PERCENT (BEAKER) (test code = 2801) [id number] 04:27:00 Test Item Value Reference Range Interpretation Comments RPR (test code = 44403-0) Nonreactive Nonreactive Lab Interpretation (test code = Normal 92905-4) [facility] 04:27:00 Test Item Value Reference Range Interpretation Comments RPR SCREEN (BEAKER) (test code = Nonreactive Nonreactive 420) MR, MRA, BRAIN, WITHOUT [id number] 03:28:00Reason for exam:- >StrokeWhat is the patient's [...] 07/17/2019 03:28:33 MR, MRA, NECK, WITHOUT IV [id number] 03:28:00FINAL REPORT MR, BRAIN, WITHOUT CONTRAST, MR, [...] Verified Date/Time: 07/17/2019 03:28:33 MR, BRAIN, WITHOUT [id number] 03:28:00 Reason for exam:->StrokeWhat is the patient's [...] Date/Time: 07/17/2019 03:28:33 MR MRA head without [id number] 03:28:00 Interface, External Ris In - 07/17/2019 [...] Yg Conley MDReport Verified Date/Time: 07/17/2019 03:28:33 [facility] without [id number] 03:28:00Interface, External Ris In - 07/17/2019 4:57 [...] Yg Conley MDReport Verified Date/Time: 07/17/2019 03:28:33 [facility] [id number] 03:28:00Interface, External Ris In - 07/17/2019 4:57 [...] Yg Conley MDReport Verified Date/Time: 07/17/2019 03:28:33 [facility] [id number] 21:16:00 Test Item Value Reference Range Interpretation Comments POC-GLUCOSE METER 143 mg/dL 70-110 H : TESTED A T [facility] 6720 (BEAKER) (test code = [employer] [facility], 1538) 00095: Quality Systems Technician/Techni tammy ID = [id number] for JANELL GEORGE POCT-GLUCOSE [id number] 17:33:00 Test Item Value Reference Range Interpretation Comments POC-GLUCOSE METER 108 mg/dL 70-110 : TESTED A T [facility] 6720 (BEAKER) (test code = [employer] [facility], 1538) 21817: Quality Systems Technician/Techni tammy ID = [id number] for TAVON DUVALL POCT-GLUCOSE [id number] 17:25:00 Test Item Value Reference Range Interpretation Comments POC-GLUCOSE METER 155 mg/dL 70-110 H : TESTED A T [facility] 6720 (BEAKER) (test code = [employer] [facility], 1538) 88748: Quality Systems Technician/Techni tammy ID = [id number] for SIMON CHO HEMODIALYSIS [id number] 17:23:31Tavon Mcduffie RN 07/16/2019 5:24 PMVerified HD [...] Results Component Value Date HEPBSAG Nonreactive 07/16/2019[facility] surface [id number] 14:30:00 Test Item Value Reference Range Interpretation Comments HBsAg Screen (test code = 5195-3) Nonreactive Nonreactive Lab Interpretation (test code = Normal 34892-8) [facility] B SURFACE [id number] 14:30:00 Test Item Value Reference Range Interpretation Comments HEPATITIS B SURFACE ANTIGEN (2) Nonreactive Nonreactive (BEAKER) (test code = 2585) 2D Echo W/Doppler(CW/PW/Color)2019-07-16 14:11:04Ejection FractionSLEH ECHO HEARTLAB MKCKESSON CPACSInterface, External Ris In - 07/16/2019 2:11 PM C STTransthoracic Echocardiography Report (TTE) Demographics Patient Name GIGI CONROY Date of Study 07/16/2019 Gender Female Visit Number [id number] Race Unknown Room Number 7605 Number Date of 1975 Referring Arvin Ann Physician Age 43 year(s) Home Health Care Coordinator Daja Arthur, [facility] Process Coach Yanna Mcdonald Interpreting MD Oscar Silver Physician [...] TR Velocity: 2.31 m/s TR Gradient: 21.42 mmHgMendocino Coast District HospitalCT- GLUCOSE [id number] 12:17:00 Test Item Value Reference Range Interpretation Comments POC-GLUCOSE METER 146 mg/dL 70-110 H : TESTED A T [facility] 6720 ([employer]) (test code = [facility], 1538) 62298: Quality Systems Technician/Techni tammy ID = [id number] for MAVIS GARRIDO BASIC METABOLIC [id number] 09:26:00 Test Item Value Reference Range Interpretation [...] NOT APPLICABLE FOR DIALYSIS PATIEN TS. POCT-GLUCOSE [id number] 08:27:00 Test Item Value Reference Range Interpretation Comments POC-GLUCOSE METER 106 mg/dL 70-110 : TESTED A T [facility] 6720 (BEAKER) (test code = [facility], 1538) 39446: Quality Systems Technician/Techni tammy ID = [id number] for SIMON CHO POCT-GLUCOSE [id number] 07:46:00 Test Item Value Reference Range Interpretation Comments POC-GLUCOSE METER 171 mg/dL 70-110 H : TESTED A T [facility] 6720 (BEAKER) (test code [facility], = 1538) 98111: Quality Systems Technician/Techni tammy ID = [id number] for YASMINE VO RAD, CHEST, 1 VIEW, NON [id number] 07:36:00Reason for exam:- >baselineShould this be performed [...] MDReport Verified Date/Time: 07/16/2019 07:36:01 Reading Location: [facility] B1 C013Y CT Body Reading Room Hemoglobin [id number] 06:42:00 Test Item Value Reference Range Interpretation Comments Hemoglobin A1C (test code = 4548-4) 9.5 % 4.3-6.1 H Lab Interpretation (test code = Abnormal 48596-3) [facility]MO[facility] [id number] 06:42:00 Test Item Value Reference Range Interpretation Comments HEMOGLOBIN A1C (BEAKER) (test code = 9.5 % 4.3-6.1 H 368) BASIC METABOLIC [id number] 06:27:00 Test Item Value Reference Range Interpretation [...] DIALYSIS PATIEN TS. HIV-1 Antigen with HIV-1/2 [id number] 05:52:00 Test Item Value Reference Range Interpretation Comments HIV-1 Antigen with HIV 1&2 Nonreactive Nonreactive Antibody (test code = 43524-4) Lab Interpretation (test code = Normal 31848-0) [facility] WITH HIV-1/2 [id number] 05:52:00 Test Item Value Reference Range Interpretation Comments HIV-1 ANTIGEN WITH HIV 1\T\2 Nonreactive Nonreactive ANTIBODY (2) (BEAKER) (test code = 2586) POCT-GLUCOSE [id number] 05:38:00 Test Item Value Reference Range Interpretation Comments POC-GLUCOSE METER 420 mg/dL 70-110 HH : Notified RN/MD: TESTED (BEAKER) (test code AT [facility] [address] = 1538) [place] [address] 30: Quality Systems Technician/Techni tammy ID = [id number] for YASMINE VO TSH/Free T4 If [id number] 05:11:00 Test Item Value Reference Range Interpretation Comments TSH (test code = 25185-1) 0.87 0.35- 4.94 uIU/mL Lab Interpretation (test code = Normal 76312-3) [facility]Vitamin B12 and [id number] 05:11:00 Test Item Value Reference Range Interpretation Comments Vitamin B12 (test code = 2132-9) 525 pg/mL 213-816 Folate (test code = 2284-8) 6.5 ng/mL >=7.0 L Lab Interpretation (test code = Abnormal 78550-9) [facility] T4 IF [id number] 05:11:00 Test Item Value Reference Range Interpretation Comments THYROID STIMULATING HORMONE 0.87 uIU/mL 0.35-4.94 (BEAKER) (test code = 772) VITAMIN B12 AND [id number] 05:11:00 Test Item Value Reference Range Interpretation Comments VITAMIN B12 (BEAKER) (test code = 525 pg/mL 213-816 774) FOLATE (BEAKER) (test code = 362) 6.5 ng/mL >=7.0 L BASIC METABOLIC [id number] 04:57:00 Test Item Value Reference Range Interpretation [...] NOT APPLICABLE FOR DIALYSIS PATIEN TS. Lipid [id number] 04:47:00 Test Item Value Reference Range Interpretation Comments Triglycerides (test 100 mg/dL code = 2571-8) Cholesterol (test code 177 mg/dL = 2093-3) HDL (test code = 48 mg/dL 5-9) LDL Calculated (test 109 mg/dL code = 63139-4) YAKELIN (test code = YAKELIN) Triglyceride Reference Range: Low Risk <150 Borderline 150-199 High Risk 200-499 Very High Risk >=500 Cholesterol Reference Range: Low Risk <200 Borderline 200-239 High Risk >240 HDL Cholesterol Reference Range: Low Risk >=60 High Risk <40 LDL Cholesterol Reference Range: Optimal <100 Near Optimal 100-129 Borderline 130-159 High 160-189 Very High >=190 [facility] [id number] 04:47:00 Test Item Value Reference Range Interpretation Comments Protein, Total (test code = 2885-2) 6.3 6.0- 8.3 gm/dL Albumin (test code = 61566-7) 3.0 g/dL 3.5-5 L Total Bilirubin (test code = 0.4 mg/dL 0.2-1.2 1974-2) Bilirubin, Direct (test code = 0.2 mg/dL 0.1-0.5 1967-7) Alkaline Phosphatase (test code = 182 U/L 40-150 H 6768-6) AST (test code = 1920-8) 63 U/L 5-34 H ALT (test code = 1742-6) 99 U/L 6-55 H Lab Interpretation (test code = Abnormal 69933-7) [id number] 04:47:00 Test Item Value Reference Range Interpretation Comments PHOSPHORUS (BEAKER) (test code = 5.5 mg/dL 2.3-4.7 H 604) [id number] 04:47:00 Test Item Value Reference Range Interpretation Comments MAGNESIUM (BEAKER) (test code = 2.0 mg/dL 1.6-2.6 627) LIPID [id number] 04:47:00 Test Item Value Reference Range Interpretation [...] 130-159 High 160-189 Very High >=190HEPATIC FUNCTION [id number] 04:47:00 Test Item Value Reference Range Interpretation [...] = 99 U/L 6-55 H 347) PROTHROMBIN [id number] 04:11:00 Test Item Value Reference Range Interpretation [...] mechanical heart valves.CBC W/PLT COUNT & AUTO [id number] 04:03:00 Test Item Value Reference Range Interpretation [...] PERCENT (BEAKER) (test code = 2801) POCT-GLUCOSE [id number] 03:47:00 Test Item Value Reference Range Interpretation Comments POC-GLUCOSE METER > mg/dL 70-110 HH : Notified RN/MD: TESTED (BEAKER) (test code = AT [facility] [address] [facility] 1538) [place] [address] 30: Quality Systems Technician/Techni tammy ID = [id number] for SYLVIA JONES FACTOR 5 LEIDEN PCR (THROMBOTIC RISK)2017-03-24 19:24:00 Test Item Value Reference Range Interpretation Comments FACTOR V LEIDEN Negative for the R506Q (BEAKER) (test code = (Factor V Leiden) 718) mutation [id number] Martínez Wang MD (BEAKER) (test code = (electronic signature) 5734) This test is a genotyping assay which [...] developed and its performance characteristics determined bythe [facility], Section of Molecular Pathology. It has not been cleared or approved by the U.S. Food and Drug Administration (FDA), since FDA approval is not requ ired for clinical use of the test. Validation was done as required by the Clinical Laboratory Improvement Amendments of 1988.POCT-GLUCOSE [id number] 07:28:00 Test Item Value Reference Range Interpretation Comments POC-GLUCOSE METER 200 mg/dL 70-[address] [facility] [address] [facility] (test code = [address] [place] 1538) [address] POCT-GLUCOSE [id number] 21:18:00 Test Item Value Reference Range Interpretation Comments POC-GLUCOSE METER 211 mg/dL 70-[address] [facility] 67 ([facility]) (test code = [address] [facility] 1538) [address] PROTEIN, RANDOM [id number] 19:43:00 Test Item Value Reference Range Interpretation Comments PROTEIN, URINE (BEAKER) (test code 286 mg/dL 0-14 H = 1569) CREATININE, RANDOM [id number] 18:27:00 Test Item Value Reference Range Interpretation [...] Normal Hexagonal (BEAKER) (test code = Phospholipid 779169) [id number] Martínez Wang MD (BEAKER) (test code = (electronic 2610) signature) DRVV SCREEN RATIO 0.84 <1.20 (BEAKER) (test code = 5127) Effective 12/20/2013: Test Method ChangeDRVV Screen Ratio, DRVV 1/1 Screen Ratio, DRVV Confirm Ratio,DRVV Normalized Ratio Reference Range: <1.2Protime Reference Range ChangeNew: 11.7-14.7 Previous: 9.8-12.0PTT Reference Range ChangeNew: 22.5-36.0 Previous: 25.8-34.5URINE [id number] 11:40:00 Test Item Value Reference Range Interpretation Comments CULTURE ([facility]) (test 20-29,000 col/mL skin code = 1095) lei POCT-GLUCOSE [id number] 08:33:00 Test Item Value Reference Range Interpretation Comments POC-GLUCOSE METER 293 mg/dL 70-[address] [facility] [address] ([facility]) (test code = [address] [place] 1538) [address] VITAMIN D, [id number] 07:49:00 Test Item Value Reference Range Interpretation Comments VITAMIN D 25-OH ([facility]) (test code = < ng/mL 13.0-47.8 L 2764) CBC W/PLT COUNT & AUTO [id number] 05:59:00 Test Item Value Reference Range Interpretation [...] (BEAKER) (test code = 2801) BASIC METABOLIC [id number] 05:38:00 Test Item Value Reference Range Interpretation [...] S NOT APPLICABLE FOR DIALYSIS PATIEN TS. [id number] 05:37:00 Test Item Value Reference Range Interpretation Comments PHOSPHORUS (BEAKER) (test code = 4.1 mg/dL 2.3-4.7 604) [id number] 05:37:00 Test Item Value Reference Range Interpretation Comments MAGNESIUM (BEAKER) (test code = 1.7 mg/dL 1.6-2.6 627) PTH, [id number] 05:34:00 Test Item Value Reference Range Interpretation Comments PARATHYROID HORMONE INTACT 57.2 pg/mL 8.5-72.5 ([employer]) (test code = 577) Effective 07/04/2014: Reference Range ChangeNew: 8.5-72.5 Previous: 15.0-90.0 CARDIOLIPIN ANTIBODIES, IGG AND [id number] 22:36:00 Test Item Value Reference Range Interpretation Comments ANTICARDIOLIPIN IGG ANTIBODY ([employer]) < GPL (test code = 712) ANTICARDIOLIPIN IGM ANTIBODY ([employer]) 2.8 MPL (test code = 713) Anticardiolipin IgG Result Interpretation:NEG: <20 GPL; U/mlPOS: >/=20 GPL; U/mlAnticardiolipin IgM Result Interpretation:NEG: <20 MPL; U/mlPOS: >/=20 MPL; U/mlPOCT-GLUCOSE [id number] 21:25:00 Test Item Value Reference Range Interpretation Comments POC-GLUCOSE METER 198 mg/dL 70-110 H TESTED AT [place] [address] ([employer]) (test code = [facility] 1538) [address] POCT-GLUCOSE [id number] 16:29:00 Test Item Value Reference Range Interpretation Comments POC-GLUCOSE METER 296 mg/dL 70-[address] [facility] [address] [facility] (test code = [facility] 1538) [address] ANTI-NUCLEAR ANTIBODY (MARY)2017-03-18 15:30:00 Test Item Value Reference Range Interpretation Comments ANTI-NUCLEAR ANTIBODY (MARY) ([employer]) Negative Negative (test code = 418) HEXAGONAL [id number] 13:21:00 Test Item Value Reference Range Interpretation Comments HEXAGONAL PHOSPHOLIPID (BEAKER) Negative (test code = 1790) POCT-GLUCOSE [id number] 12:15:00 Test Item Value Reference Range Interpretation Comments POC-GLUCOSE METER 140 mg/dL 70-[address] [facility] 67 ([facility]) (test [facility] = [facility] 1538[facility] [address] PROTEIN C [id number] 11:44:00 Test Item Value Reference Range Interpretation Comments PROTEIN C ACTIVITY (BEAKER) (test 155.0 % 70.0-130.0 H code = 582) Effective 12/20/2013: Reference Range Change-Adult onlyNew: 70.0-130.0 Previous: 70.0-140.0See Protein C Antigen.ANTITHROMBIN [id number] 11:43:00 Test Item Value Reference Range Interpretation Comments ANTITHROMBIN III ACTIVITY (BEAKER) 87.0 % 80.0-120.0 (test code = 711) Effective 12/20/2013: Reference Range Change-Adult onlyNew: 80.0-120.0 Previous: 90.0-128.0POCT-GLUCOSE [id number] 08:17:00 Test Item Value Reference Range Interpretation Comments POC-GLUCOSE METER 107 mg/dL 70-110 TESTED AT [place] [address] ([facility]) (test code = [facility] 1538) [address] BASIC METABOLIC [id number] 06:32:00 Test Item Value Reference Range Interpretation [...] PATIEN TS. CBC W/PLT COUNT & AUTO [id number] 05:56:00 Test Item Value Reference Range Interpretation [...] PERCENT (BEAKER) (test code = 2801) POCT-GLUCOSE [id number] 04:32:00 Test Item Value Reference Range Interpretation Comments POC-GLUCOSE METER 107 mg/dL 70-110 TESTED AT [place] [address] ([facility]) (test code = [address] [facility] 1538) [address] POCT-GLUCOSE [id number] 22:21:00 Test Item Value Reference Range Interpretation Comments POC-GLUCOSE METER 118 mg/dL 70-110 H TESTED AT [place] [address] ([facility]) (test code = [address] [facility] 1538) [address] POCT-GLUCOSE [id number] 21:22:00 Test Item Value Reference Range Interpretation Comments POC-GLUCOSE METER 52 mg/dL 70-110 L Notified Isabel Ro MD/TESTED AT ([facility]) (test code = [address]) [facility] [address] MICROALBUMIN, RANDOM [id number] 17:57:00 Test Item Value Reference Range Interpretation Comments MICROALBUMIN URINE (BEAKER) (test > mg/dL code = 1794) Reference Range: No NormalsURINALYSIS W/ [id number] 17:36:00 Test Item Value Reference Range Interpretation [...] 516) SOURCE(BEAKER) (test code = Urine, Voided 9332) SCREEN, [id number] 17:36:00 Test Item Value Reference Range Interpretation Comments TEST URINE (BEAKER) (test Negative code = 583) CREATININE, RANDOM [id number] 17:35:00 Test Item Value Reference Range Interpretation Comments CREATININE URINE (BEAKER) (test 33.9 mg/dL code = 375) Reference Range: No NormalsSODIUM, RANDOM [id number] 17:35:00 Test Item Value Reference Range Interpretation Comments SODIUM URINE (BEAKER) (test code = 63 meq/L 243) Reference Range: No NormalsPOCT-GLUCOSE [id number] 17:34:00 Test Item Value Reference Range Interpretation Comments POC-GLUCOSE METER 118 mg/dL 70-110 H TESTED AT [place] [address] ([facility]) (test code = [facility] Isabel [facility] 1538) [address] POCT-GLUCOSE [id number] 13:28:00 Test Item Value Reference Range Interpretation Comments POC-GLUCOSE METER 71 mg/dL 70-110 TESTED AT [place] [address] ([facility]) (test code = [facility] Isabel [facility] [address] 1538) POCT-GLUCOSE [id number] 10:37:00 Test Item Value Reference Range Interpretation Comments POC-GLUCOSE METER 144 mg/dL 70-110 H TESTED AT [place] [address] ([facility]) (test code = [facility] 1538) [address] POCT-GLUCOSE [id number] 07:18:00 Test Item Value Reference Range Interpretation Comments POC-GLUCOSE METER 60 mg/dL 70-110 L TESTED AT [place] [address] ([facility]) (test code = [facility] [address] 1538) CBC W/PLT COUNT & AUTO [id number] 05:51:00 Test Item Value Reference Range Interpretation [...] (BEAKER) (test code = 2801) BASIC METABOLIC [id number] 05:51:00 Test Item Value Reference Range Interpretation [...] NOT APPLICABLE FOR DIALYSIS PATIEN TS. POCT-GLUCOSE [id number] 21:41:00 Test Item Value Reference Range Interpretation Comments POC-GLUCOSE METER 287 mg/dL 70-[address] [facility] [address] (BEAKER) (test code = [address] [place] 1538) [address] BASIC METABOLIC [id number] 12:35:00 Test Item Value Reference Range Interpretation [...] report . CBC W/PLT COUNT & AUTO [id number] 04:54:00 Test Item Value Reference Range Interpretation [...] 0-1 PERCENT (BEAKER) (test code = 2801) [id number] 20:17:00 Test Item Value Reference Range Interpretation Comments RPR SCREEN (BEAKER) (test code = Nonreactive Nonreactive 420) POCT-GLUCOSE [id number] 18:09:00 Test Item Value Reference Range Interpretation Comments POC-GLUCOSE METER 215 mg/dL 70-[address] [facility] [address] (BEAKER) (test code = [address] [place] 1538) [address] CBC W/PLT COUNT & AUTO [id number] 11:54:00 Test Item Value Reference Range Interpretation [...] (BEAKER) (test code = Normal 762) SEDIMENTATION [id number] 10:27:00 Test Item Value Reference Range Interpretation Comments SEDIMENTATION RATE, ERYTHROCYTE 79 mm/HR 0-20 H (BEAKER) (test code = 766) HEMOGLOBIN [id number] 09:33:00 Test Item Value Reference Range Interpretation Comments HEMOGLOBIN A1C (BEAKER) (test code = 9.8 % 4.3-6.1 H 368) VITAMIN [id number] 09:14:00 Test Item Value Reference Range Interpretation Comments VITAMIN B12 (BEAKER) (test code = 1790 pg/mL 213-816 H 774) TSH/FREE T4 IF [id number] 09:14:00 Test Item Value Reference Range Interpretation Comments THYROID STIMULATING HORMONE 1.08 uIU/mL 0.35-4.94 (BEAKER) (test code = 772) BASIC METABOLIC [id number] 08:52:00 Test Item Value Reference Range Interpretation [...] DATA TO CALCULA TE ESTIMATED GFR. FastingLIPID [id number] 08:51:00 Test Item Value Reference Range Interpretation [...] High 160-189 Very High >=190 FastingHCG, QUANTITATIVE, [id number] 01:43:00 Test Item Value Reference Range Interpretation Comments GONADOTROPIN, CHORIONIC (HCG) QUANT < mIU/mL 0-10 (BEAKER) (test code = 649) Non- Females: <10 mIU/mL Females: Gestation Age Reference Range(mIU/mL) 0.2-1 Week 5-50 1-2 Weeks 50-500 2-3 Weeks 100-5,000 3-4Weeks 500-10,000 4-5 Weeks 1,000-50,000 5-6 Weeks 10,000-100,000 6-8 Weeks 15,000-200,000 2-3 Months 10,000-100,000COMPREHENSIVE METABOLIC [id number] 21:57:00 Test Item Value Reference Range Interpretation [...] O CALCULATE ESTIM ATED GFR. Unit CollectPOCT-GLUCOSE [id number] 21:50:00 Test Item Value Reference Range Interpretation Comments POC-GLUCOSE METER 278 mg/dL 70-[address] [facility] 67 ([facility]) (test code = [address] [place] 6[address]) [address]
[2020-02-17 22:03] LABS: Absolute Lymphocytes (CBC) 0.7 K/uL (0.7-4.9); Basophils % 0.6 % (0-1.3); Hematocrit 33.6 % (36.0-45.0); Lymphocytes % 6.6 % (15.3-44.8); MPV 9.1 fL (7.6-11.3); RBC Red Blood Cell Count 3.49 M/uL (3.86-4.86)
[2020-02-17] MEDS ORDERED: INSULIN -REGULAR HUMAN 50 UNIT/0.5 ML ML ONE (22:14)
[2020-02-17] MEDS ORDERED: NA CHLORIDE 0.9% 1,000 ML ONE (22:15)
[2020-02-17] MEDS ORDERED: MORPHINE 2 MG/ML SYR ONE ×2 (22:15→23:20)
[2020-02-17 22:40] LABS: Urine Blood 1+ (NEG); Urine Glucose NEGATIVE (NEG); Urine Protein 3+ (NEG)
[2020-02-17 23:04] LABS: Albumin 2.9 g/dL (3.4-5.0); Bilirubin Direct 0.1 mg/dL (0-0.2); Bilirubin Total 0.3 mg/dL (0.2-1.0); Potassium 4.4 mmol/L (3.5-5.1); Protein, Total 7.3 g/dL (6.4-8.2)
[2020-02-17 23:37] LABS: Urine Amorphous Sediment 3+ /HPF (NONE SEEN); Urine Bacteria LOADED /HPF (<20); Urine Culture Reflex Order REFLEXED; Urine Mucus 2+ /HPF (NONE SEEN)
[2020-02-17] MEDS ORDERED: ONDANSETRON 4 MG/2 ML VIAL ONE (23:41)
[2020-02-18] MEDS ORDERED: INSULIN -REGULAR HUMAN 50 UNIT/0.5 ML ML ONE (00:15)
[2020-02-18] MEDS ORDERED: LIDOCAINE VISCOUS 2% SOLN 15 ML UDC ONE (01:10)
--- NOTE | 2020-02-18 01:15 | ER ---
Nurse's Notes [facility] Name: Archana Woo Age: 44 yrs Sex: Female : 1975 Arrival Date: 02/17/2020 Time: 21:37 Bed 5 Private MD: Diagnosis: Fecal impaction;Chronic kidney disease, stage 5 Presentation: 02/16 21:50 Chief complaint: EMS states: complaint of high blood sugar (552 mg/Dl), abdominal pain rr5 and constipation for a week. 21:50 Coronavirus screen: Proceed with normal triage. Ebola Screen: Patient negative for rr5 fever greater than or equal to 101.5 degrees Fahrenheit, and additional compatible Ebola Virus Disease symptoms Patient denies exposure to infectious person. Patient denies travel to an Ebola-affected area in the 21 days before illness onset. Initial Sepsis Screen: Does the patient meet any 2 criteria? No. Patient's initial sepsis screen is negative. Does the patient have a suspected source of infection? No. Patient's initial sepsis screen is negative. Risk Assessment: Do you want to hurt yourself or someone else? Patient reports no desire to harm self or others. Onset of symptoms was February 17, 2020. 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: 23:00 cannot recall LMP rr5 Historical: - Allergies: 22:00 No Known Allergies; rr5 - Home Meds: 22:00 calcitriol 0.25 mcg Oral cap 1 cap [Active]; docusate sodium 100 mg Oral cap 1 cap once rr5 daily [Active]; furosemide 80 mg Oral tab 1 tab 2 times per day [Active]; hydralazine 25 mg Oral tab 1 tab 4 times per day [Active]; Hydrocodone-Acetaminophen Oral [Active]; Lantus 100 unit/mL Sub-Q soln 100 unit/mL [Active]; - PMHx: 22:00 BLIND; CVA; Depression; Diabetes - NIDDM; GERD; Hyperlipidemia; Hypertension; left arm rr5 paralysis; neuropathy; THYROID CANCER; TIA; - PSHx: 22:00 Cholecystectomy; ; rr5 - Immunization history:: Adult Immunizations up to date. - Social history:: Smoking status: Patient reports the use of cigarette tobacco products, Patient/guardian denies using alcohol, street drugs. Screenin:00 Abuse screen: Denies threats or abuse. Denies injuries from another. Nutritional rr5 screening: No deficits noted. Tuberculosis screening: No symptoms or risk factors identified. Fall Risk Secondary diagnosis (15 points) blind. IV access (20 points). Total Lr Fall Scale indicates High Risk Score (45 or more points). Fall prevention measures have been instituted. Side Rails Up X 2 Frequent Obs/Assessments Occuring As available patient and family educated on Fall Prevention Program and Strategies. Assessment: 02/15 21:50 General: Appears in no apparent distress. uncomfortable, ill, Behavior is calm, rr5 cooperative, appropriate for age. 21:50 Pain: Complains of pain in right lower quadrant and left lower quadrant Pain radiates rr5 to abdomen Pain currently is 10 out of 10 on a pain scale. Quality of pain is described as aching, Pain began gradually, Is intermittent. Neuro: Level of Consciousness is awake, alert, obeys commands, Oriented to person, place, time, situation. Cardiovascular: Capillary refill < 3 seconds Patient's skin is warm and dry. Dialysis shunt: in the left arm, with palpable thrill, with no erythema, with no edema, no bleeding noted. Respiratory: Airway is patent Respiratory effort is even, unlabored, Respiratory pattern is regular, symmetrical. GI: Abdomen is flat, non-distended, Bowel sounds present X 4 quads. Abd is soft and non tender X 4 quads. Reports lower abdominal pain, constipation. : No signs and/or symptoms were reported regarding the genitourinary system. EENT: Reports blind. Derm: Skin is intact, is healthy with good turgor, Skin temperature is warm. Musculoskeletal: Circulation, motion, and sensation intact. Capillary refill < 3 seconds. 02/16 23:10 Reassessment: Patient appears in no apparent distress at this time. ED provider aware rr5 with order made and carried out. Patient states symptoms have not improved. 23:35 GI: Reports nausea, ED provider aware with order made and carried out. rr5 02/17 00:30 Reassessment: Patient appears in no apparent distress at this time. Patient and/or rr5 family updated on plan of care and expected duration. Pain level reassessed. Patient is alert, oriented x 3, equal unlabored respirations, skin warm/dry/pink. 01:15 Reassessment: ED provider informed for the CBG result without order made. rr5 01:15 Reassessment: Patient appears in no apparent distress at this time. Patient is alert, rr5 oriented x 3, equal unlabored respirations, skin warm/dry/pink. 01:55 Reassessment: Patient appears in no apparent distress at this time. Patient is alert, rr5 oriented x 3, equal unlabored respirations, skin warm/dry/pink. discharge instruction given and explained without complaints made Patient states feeling better. Patient states symptoms have improved. Vital Signs: 02/16 21:50 BP 183 / 72; Pulse 75; Resp 18; Temp 99.2; Pulse Ox 99% ; Weight 58.97 kg; Height 5 ft. rr5 4 in. (162.56 cm); Pain 10/10; 23:10 BP 188 / 85; Pulse 79; Resp 20; Pulse Ox 100% ; Pain 10/10; rr5 23:46 BP 164 / 76; Pulse 70; Resp 16; Pulse Ox 99% ; rr5 02/17 01:00 BP 161 / 85; Pulse 80; Resp 17; Pulse Ox 98% ; rr5 01:50 BP 155 / 75; Pulse 75; Resp 19; Temp 99; Pulse Ox 98% ; rr5 02/16 21:50 Body Mass Index 22.31 (58.97 kg, 162.56 cm) rr5 ED Course: 02/16 21:37 Patient arrived in ED. rr5 21:50 Inserted saline lock: 20 gauge in right forearm, using aseptic technique. Blood rr5 collected. 21:51 Baldomero Valverde RN is Primary Nurse. rr5 21:53 Cristian Waggoner MD is Attending Physician. tw4 21:59 Triage completed. rr5 22:00 Patient has correct armband on for positive identification. Placed in gown. Bed in low rr5 position. Call light in reach. Side rails up X2. Pulse ox on. NIBP on. 22:01 Arm band placed on left wrist. rr5 22:20 Urine collected: straight cath specimen, cloudy, Amount Returned: 200mL. rr5 22:41 Abdomen 1 View (KUB) XRAY In Process Unspecified. EDMS 02/17 01:13 large in amount stool brown soft. manual evacuation done by dr. waggoner. rr5 01:55 IV discontinued, intact, bleeding controlled, No redness/swelling at site. Pressure rr5 dressing applied. Administered Medications: 02/16 22:25 Drug: NS 0.9% 1000 ml Route: IV; Rate: 1 bolus; Site: right forearm; rr5 23:33 Follow up: Response: No adverse reaction; IV Status: Completed infusion; IV Intake: rr5 1000ml 22:25 Drug: Insulin Regular Human 10 units {Co-Signature: asuncion (Manoj Abreu RN).} Route: rr5 IVP; Site: right forearm; 23:25 Follow up: Response: No adverse reaction; Blood sugar is lowered rr5 22:26 Drug: morphine 2 mg {Note: rass 0.} Route: IVP; Site: right forearm; rr5 23:12 Drug: morphine 2 mg {Note: RASS 1.} Route: IVP; Site: right forearm; rv 02/17 00:30 Follow up: Response: No adverse reaction; RASS: Alert and Calm (0) rr5 02/16 23:36 Drug: Zofran (Ondansetron) 4 mg Route: IVP; Site: right forearm; rr5 02/17 00:30 Follow up: Response: No adverse reaction rr5 00:08 Drug: Insulin Regular Human 5 units {Co-Signature: asuncion (Manoj Abreu RN).} Route: rr5 IVP; Site: right forearm; 01:50 Follow up: Response: No adverse reaction; Blood sugar is lowered rr5 01:10 Drug: Lidocaine Gel 2 % 1 ea Volume: 15 ml; Route: Mucous Membrane; rr5 01:50 Follow up: Response: No adverse reaction rr5 01:33 Drug: Tylenol 1000 mg Route: PO; rr5 01:50 Follow up: Response: No adverse reaction; Pain is decreased rr5 Intake: 02/16 23:33 IV: 1000ml; Total: 1000ml. rr5 Outcome: 02/17 01:14 Discharge ordered by tw4 01:55 Discharged to home via wheelchair, with family. rr5 01:55 Condition: stable 01:55 Discharge instructions given to patient, family, Instructed on discharge instructions, follow up and referral plans. medication usage, Demonstrated understanding of instructions, follow-up care, medications, Prescriptions given X 2. 01:59 Patient left the ED. rr5 Signatures: Dispatcher [employer] Cristian Morales MD MD tw4 Manoj Abreu RN RN rv Baldomero Valverde RN RN rr5 Manoj Abreu RN rv
--- NOTE | 2020-02-18 01:15 | EDPHYS ---
Physician Documentation [facility] Name: Archana Woo Age: 44 yrs Sex: Female : 1975 Arrival Date: 02/17/2020 Time: 21:37 Bed 5 Private MD: ED Physician Cristian Mcclure HPI: 02/17 06:26 This 44 yrs old Female presents to ER via EMS with complaints of High Blood tw4 Sugar, Abdominal Pain. 06:26 The patient presents to the emergency department with pain in the rectal area, that is tw4 severe. Onset: The symptoms/episode began/occurred today. Context: the patient has no known special context relating to the rectal area complaint(s). Modifying factors: The symptoms are alleviated by nothing, The symptoms are aggravated by nothing. The patient has not experienced similar symptoms in the past. FINANCIAL ADVISER: 02/16 23:00 cannot recall LMP rr5 Historical: - Allergies: 22:00 No Known Allergies; rr5 - Home Meds: 22:00 calcitriol 0.25 mcg Oral cap 1 cap [Active]; docusate sodium 100 mg Oral cap 1 cap once rr5 daily [Active]; furosemide 80 mg Oral tab 1 tab 2 times per day [Active]; hydralazine 25 mg Oral tab 1 tab 4 times per day [Active]; Hydrocodone-Acetaminophen Oral [Active]; Lantus 100 unit/mL Sub-Q soln 100 unit/mL [Active]; - PMHx: 22:00 BLIND; CVA; Depression; Diabetes - NIDDM; GERD; Hyperlipidemia; Hypertension; left arm rr5 paralysis; neuropathy; THYROID CANCER; TIA; - PSHx: 22:00 Cholecystectomy; ; rr5 - Immunization history:: Adult Immunizations up to date. - Social history:: Smoking status: Patient reports the use of cigarette tobacco products, Patient/guardian denies using alcohol, street drugs. ROS: 02/17 06:26 Constitutional: Negative for fever, chills, and weight loss, Eyes: Negative for injury, tw4 pain, redness, and discharge, Cardiovascular: Negative for chest pain, palpitations, and edema, Respiratory: Negative for shortness of breath, cough, wheezing, and pleuritic chest pain. MS/Extremity: Negative for injury and deformity, Skin: Negative for injury, rash, and discoloration, Neuro: Negative for headache, weakness, numbness, tingling, and seizure. Abdomen/GI: Positive for constipation, rectal pain, Negative for abdominal pain, nausea and vomiting, nausea, vomiting, and diarrhea, nausea, vomiting, diarrhea, abdominal cramps, abdominal distension, black/tarry stool, rectal bleeding, bowel incontinence, flatulence. Exam: 06:26 Back: No spinal tenderness. No costovertebral tenderness. Full range of motion. tw4 06:26 Head/Face: Normocephalic, atraumatic. Chest/axilla: Normal chest wall appearance and motion. Nontender with no deformity. No lesions are appreciated. Cardiovascular: Regular rate and rhythm with a normal S1 and S2. No gallops, murmurs, or rubs. Normal PMI, no JVD. No pulse deficits. Respiratory: Lungs have equal breath sounds bilaterally, clear to auscultation and percussion. No rales, rhonchi or wheezes noted. No increased work of breathing, no retractions or nasal flaring. Skin: Warm, dry with normal turgor. Normal color with no rashes, no lesions, and no evidence of cellulitis. MS/ Extremity: Pulses equal, no cyanosis. Neurovascular intact. Full, normal range of motion. Neuro: Awake and alert, GCS 15, oriented to person, place, time, and situation. Cranial nerves II-XII grossly intact. Motor strength 5/5 in all extremities. Sensory grossly intact. Cerebellar exam normal. Normal gait. 06:26 Constitutional: The patient appears alert, awake, in obvious distress, severely distressed. 06:26 Abdomen/GI: Inspection: abdomen appears normal, Bowel sounds: diminished, Rectal exam: rectal tone normal, Stool: normal, tenderness, that is moderate, fecal impaction, that is severe. Vital Signs: 02/16 21:50 BP 183 / 72; Pulse 75; Resp 18; Temp 99.2; Pulse Ox 99% ; Weight 58.97 kg; Height 5 ft. rr5 4 in. (162.56 cm); Pain 10/10; 23:10 BP 188 / 85; Pulse 79; Resp 20; Pulse Ox 100% ; Pain 10/10; rr5 23:46 BP 164 / 76; Pulse 70; Resp 16; Pulse Ox 99% ; rr5 02/17 01:00 BP 161 / 85; Pulse 80; Resp 17; Pulse Ox 98% ; rr5 01:50 BP 155 / 75; Pulse 75; Resp 19; Temp 99; Pulse Ox 98% ; rr5 02/16 21:50 Body Mass Index 22.31 (58.97 kg, 162.56 cm) rr5 Procedures: 06:26 Fecal disimpaction: digital disimpaction was performed, with a large amount of stool tw4 expressed. The patient tolerated the intervention well. MDM: 02/16 22:18 Patient medically screened. tw4 02/17 06:26 Differential diagnosis: hemorrhoids. Data reviewed: vital signs, nurses notes. Data tw4 interpreted: Pulse oximetry: Interpretation: normal. Counseling: I had a detailed discussion with the patient and/or guardian regarding: the historical points, exam findings, and any diagnostic results supporting the discharge/admit diagnosis. Medical screen evaluation completed. [facility] emergency medical condition absent. 06:29 Special discussion: I discussed with the patient/guardian in detail that at this point tw4 there is no indication for admission to the hospital. It is understood, however, that if the symptoms persist or worsen the patient needs to return immediately for re-evaluation. 02/16 21:52 Order name: Basic Metabolic Panel; Complete Time: 23:59 rr5 02/17 00:00 Interpretation: Normal except: NA 129; CL 93; GLUC 599; BUN 45; CRE 6.59; GFR 7; CA 8.3.tw4 02/16 21:52 Order name: CBC with Diff; Complete Time: 22:25 rr5 02/16 23:11 Interpretation: Normal except: WBC 10.7; HCT 33.6; HGB 11.0; RBC 3.49; SAI% 85.0; LYM% tw4 6.6; NEUT A 9.1. 02/16 21:52 Order name: Hepatic Function; Complete Time: 23:59 rr5 02/16 21:52 Order name: Lipase; Complete Time: 23:59 rr5 02/16 21:54 Order name: Ketone, Serum; Complete Time: 22:25 tw4 02/16 22:25 Interpretation: Within normal limits: ACET NEG. tw4 02/16 22:02 Order name: Glucose, Ancillary Testing; Complete Time: 22:25 EDMS 02/16 22:25 Interpretation: Abnormal: GLUC,ANCIL > 500. tw4 02/16 22:26 Order name: Urine Microscopic Only; Complete Time: 23:59 [facility] 02/17 00:01 Interpretation: Normal except: SQEPI 10-20; UBACT LOADED; URBC 10-20; UWBC TNTC; AMORPH tw4 3+. 02/16 22:26 Order name: Urine Dipstick--Ancillary (enter results); Complete Time: 22:51 2 02/17 00:00 Interpretation: Normal except: UBLD 1+; UPROT 3+; UESTR TRACE. tw4 02/16 22:26 Order name: Urine --Ancillary (enter results); Complete Time: 22:51 2 02/16 23:38 Order name: Urine Culture EDNE 02/16 23:41 Order name: Glucose, Ancillary Testing; Complete Time: 23:59 [facility] 02/17 00:00 Interpretation: Within normal limits: GLUC,ANCIL 463. tw 02/17 01:35 Order name: Glucose, Ancillary Testing EDNE 02/17 01:37 Order name: Glucose, Ancillary Testing [facility] 02/16 21:52 Order name: IV Saline Lock; Complete Time: 21:52 [facility] 02/16 21:52 Order name: Labs collected and sent; Complete Time: 21:53 [facility] 02/16 21:54 Order name: Urine Dipstick-Ancillary (obtain specimen); Complete Time: 22:27 [facility] 02/16 21:54 Order name: Urine Test (obtain specimen); Complete Time: 22:27 [facility] 02/16 21:54 Order name: Abdomen 1 View (KUB) XRAY tw4 Administered Medications: 02/16 22:25 Drug: NS 0.9% 1000 ml Route: IV; Rate: 1 bolus; Site: right forearm; rr5 23:33 Follow up: Response: No adverse reaction; IV Status: Completed infusion; IV Intake: rr5 1000ml 22:25 Drug: Insulin Regular Human 10 units {Co-Signature: rv (Manoj Abreu RN).} Route: rr5 IVP; Site: right forearm; 23:25 Follow up: Response: No adverse reaction; Blood sugar is lowered rr5 22:26 Drug: morphine 2 mg {Note: rass 0.} Route: IVP; Site: right forearm; rr5 23:12 Drug: morphine 2 mg {Note: RASS 1.} Route: IVP; Site: right forearm; rv 02/17 00:30 Follow up: Response: No adverse reaction; RASS: Alert and Calm (0) rr5 02/16 23:36 Drug: Zofran (Ondansetron) 4 mg Route: IVP; Site: right forearm; rr5 02/17 00:30 Follow up: Response: No adverse reaction rr5 00:08 Drug: Insulin Regular Human 5 units {Co-Signature: asuncion (Manoj Abreu RN).} Route: rr5 IVP; Site: right forearm; 01:50 Follow up: Response: No adverse reaction; Blood sugar is lowered rr5 01:10 Drug: Lidocaine Gel 2 % 1 ea Volume: 15 ml; Route: Mucous Membrane; rr5 01:50 Follow up: Response: No adverse reaction rr5 01:33 Drug: Tylenol 1000 mg Route: PO; rr5 01:50 Follow up: Response: No adverse reaction; Pain is decreased rr5 Disposition: 02/18/20 01:14 Discharged to Home. Impression: Fecal impaction, Chronic kidney disease, stage 5. - Condition is Stable. - Discharge Instructions: Constipation, Adult, Fecal Impaction, Chronic Kidney Disease, Adult, [id number]. - Prescriptions for Colace 100 mg Oral Tablet - take 1 tablet by ORAL route every 12 hours; 14 tablet. Miralax 17 gram/dose Oral - take 1 packet by ORAL route once daily dilute powder in 8 ounces of water or juice; 1 packet. - Medication Reconciliation Form, Thank You Letter, Antibiotic Education, Prescription Opioid Use form. - Follow up: Private Physician; When: Upon discharge from the Emergency Department; Reason: Recheck today's complaints, Continuance of care, Re-evaluation by your physician. - Problem is an ongoing problem. - Symptoms have improved. Signatures: Dispatcher [employer] Cristian Morales MD MD tw4 Manoj Abreu RN RN Baldomero Ramos RN RN rr5 Manoj Abreu RN rv Corrections: (The following items were deleted from the chart) 02/16 21:53 21:53 GLUCOSE+C.LAB.BRZ ordered. EDMS EDMS 23:11 22:25 Normal except: WBC 10.7; HCT 33.6; HGB 11.0; RBC 3.49. 4 02/17 00:00 07 23:59 Normal except: NA 129; CL 93; GLUC 599; BUN 45; CRE 6.59. 4 02/17 00:00 07 23:59 Normal except: NA 129; CL 93; GLUC 599; BUN 45; CRE 6.59; GFR 7. tw4 02/17 00:01 00:00 Normal except: SQEPI 10-20; UBACT LOADED; URBC 10-20; UWBC TNTC. 01:59 01:14 02/18/2020 01:14 Discharged to Home. Impression: Fecal impaction; Chronic kidney rr5 disease, stage 5. Condition is Stable. Forms are Medication Reconciliation Form, Thank You Letter, Antibiotic Education, Prescription Opioid Use. Follow up: Private Physician; When: Upon discharge from the Emergency Department; Reason: Recheck today's complaints, Continuance of care, Re-evaluation by your physician. Problem is an ongoing problem. Symptoms have improved. tw4
[2020-02-18] MEDS ORDERED: ACETAMINOPHEN 500 MG TAB ONE (01:36)
[2020-02-18 02:09] VITALS: TEMP 99.2
[2020-02-18 02:12] VITALS: BP 164/76; O2SAT 99
--- NOTE | 2020-02-18 12:12 | RAD REPORT ---
EXAM DESCRIPTION: RAD - Abdomen 1 View (KUB) - 02/17/2020 10:41 pm CLINICAL HISTORY: ABD PAIN Pain COMPARISON: Abdomen 1 View (KUB) dated 12/25/2019; Abdomen Pelvis Wo Contrast dated 07/29/2019 FINDINGS: The bowel gas pattern is non-obstructive. No evidence of free air or pneumatosis. Calcific ations projecting over the pelvis are likely calcified fibroids. No significant bony findings. Cholecystectomy clips. Moderate fecal retention is seen. IMPRESSION: Moderate fecal retention. Calcified fibroid uterus suspected.
== END 2020-02-18 01:59 | disposition home or self-care (01) ==
LOC: ER 21:34
DX: K56.41 Fecal impaction (principal); I12.0 Hypertensive chronic kidney disease with stage 5 chronic kidney disease or end stage renal disease; E11.22 Type 2 diabetes mellitus with diabetic chronic kidney disease; N18.5 Chronic kidney disease, stage 5; F17.210 Nicotine dependence, cigarettes, uncomplicated; Z79.4 Long term (current) use of insulin; Z85.850 Personal history of malignant neoplasm of thyroid
CPT/HCPCS: 96361; 87088; 85025; 87086; 80048; 36415; 82010; 81025; 82947 ×3; 80076; 83690; 74018; 96375; 96374; 99284; J2270 ×2; J7030; J2405; 81003; 81015

== ENCOUNTER 2020-02-20 22:30 | Emergency (ER) | payer OTHER ==
--- OUTSIDE RECORDS SUMMARY | 2020-02-20 22:34 | XMS REPORT | Clinical Summary ---
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 ([facility]); Other specified hypothyroidism; Acute metabolic encephalopathy; DELMA (acute kidn ey injury) ([facility]) 07/15/2019 Travel 07/15/2019 Documentation Internal Medicine Negar Douglas MD after 02/19/2019 Family History Medical History Relation Name Comments [...] Taken Blood Pressure 163/76 07/18/2019 11:00 AM DIAGNOSTIC TECHNOLOGIST Pulse 85 07/18/2019 11:00 AM DIAGNOSTIC TECHNOLOGIST Temperature 36.5 C (97.7 F) 07/18/2019 11:00 AM DIAGNOSTIC TECHNOLOGIST Respiratory Rate 18 07/18/2019 11:00 AM DIAGNOSTIC TECHNOLOGIST Oxygen Saturation 98% 07/18/2019 11:00 AM DIAGNOSTIC TECHNOLOGIST Inhaled Oxygen Concentration - - Weight 98.8 kg (217 lb 13 oz) 07/16/2019 5:08 PM DIAGNOSTIC TECHNOLOGIST Height 162.6 cm (5' 4") 07/15/2019 9:22 PM DIAGNOSTIC TECHNOLOGIST Body Mass Index 37.39 07/16/2019 5:08 PM DIAGNOSTIC TECHNOLOGIST Plan of Treatment Health Maintenance Due Date [...] PROCEDURE - 07/21/2019 8:51 ENDOSCOPY SCAN AM DIAGNOSTIC TECHNOLOGIST RHYTHM STRIP - SCAN 07/21/2019 8:50 AM DIAGNOSTIC TECHNOLOGIST XR CHEST 1 VIEW STAT 07/18/2019 11:09 Results for this PORTABLE/BEDSIDE AM DIAGNOSTIC TECHNOLOGIST procedure a re in the results section. POCT-GLUCOSE METER Routine 07/18/2019 8:22 Resul ts for this AM DIAGNOSTIC TECHNOLOGIST procedure are i n the results section. CBC W/PLT COUNT & AUTO Routine 07/18/2019 4:37 R esults for this DIFFERENTIAL AM DIAGNOSTIC TECHNOLOGIST procedure are i n the results section. CBC W/PLT COUNT & AUTO Routine 07/18/2019 4:37 R esults for this DIFFERENTIAL AM DIAGNOSTIC TECHNOLOGIST procedure are i n the results section. PROTHROMBIN TIME/INR Routine 07/18/2019 4:37 Res ults for this AM DIAGNOSTIC TECHNOLOGIST procedure are i n the results section. PHOSPHORUS Routine 07/18/2019 4:37 Results for this AM DIAGNOSTIC TECHNOLOGIST procedure are i n the results section. MAGNESIUM Routine 07/18/2019 4:37 Results for this AM DIAGNOSTIC TECHNOLOGIST procedure are i n the results section. BASIC METABOLIC PANEL Routine 07/18/2019 4:37 Re sults for this (7) AM DIAGNOSTIC TECHNOLOGIST procedure are i n the results section. POCT-GLUCOSE METER Routine 07/17/2019 8:56 Resul ts for this PM DIAGNOSTIC TECHNOLOGIST procedure are i n the results section. POCT-GLUCOSE METER Routine 07/17/2019 5:07 Resul ts for this PM DIAGNOSTIC TECHNOLOGIST procedure are i n the results section. POCT-GLUCOSE METER Routine 07/17/2019 12:28 Resul ts for this PM DIAGNOSTIC TECHNOLOGIST procedure are i n the results section. SCREEN, URINE Routine 07/17/2019 11:36 Results for this AM DIAGNOSTIC TECHNOLOGIST procedure are i n the results section. POCT-GLUCOSE METER Routine 07/17/2019 7:18 Resul ts for this AM DIAGNOSTIC TECHNOLOGIST procedure are i n the results section. CBC W/PLT COUNT & AUTO Routine 07/17/2019 5:55 R esults for this DIFFERENTIAL AM DIAGNOSTIC TECHNOLOGIST procedure are i n the results section. CBC W/PLT COUNT & AUTO Routine 07/17/2019 5:55 R esults for this DIFFERENTIAL AM DIAGNOSTIC TECHNOLOGIST procedure are i n the results section. PROTHROMBIN TIME/INR Routine 07/17/2019 5:55 Res ults for this AM DIAGNOSTIC TECHNOLOGIST procedure are i n the results section. PHOSPHORUS Routine 07/17/2019 5:55 Results for this AM DIAGNOSTIC TECHNOLOGIST procedure are i n the results section. MAGNESIUM Routine 07/17/2019 5:55 Results for this AM DIAGNOSTIC TECHNOLOGIST procedure are i n the results section. BASIC METABOLIC PANEL Routine 07/17/2019 5:55 Re sults for this (7) AM DIAGNOSTIC TECHNOLOGIST procedure are i n the results section. MR BRAIN WITHOUT IV Routine 07/17/2019 12:54 Resu lts for this CONTRAST AM DIAGNOSTIC TECHNOLOGIST procedure are i n the results section. MRA NECK WITHOUT IV Routine 07/17/2019 12:54 Resu lts for this CONTRAST AM DIAGNOSTIC TECHNOLOGIST procedure are i n the results section. MRA HEAD WITHOUT IV Routine 07/17/2019 12:54 Resu lts for this CONTRAST AM DIAGNOSTIC TECHNOLOGIST procedure are i n the results section. ECHOCARDIOGRAM REPORT - 07/16/2019 9:20 SCAN PM DIAGNOSTIC TECHNOLOGIST POCT-GLUCOSE METER Routine 07/16/2019 9:03 Resul ts for this PM DIAGNOSTIC TECHNOLOGIST procedure are i n the results section. HEMODIALYSIS INPATIENT Routine 07/16/2019 5:23 R esults for this PM DIAGNOSTIC TECHNOLOGIST procedure are i n the results section. POCT-GLUCOSE METER Routine 07/16/2019 5:21 Resul ts for this PM DIAGNOSTIC TECHNOLOGIST procedure are i n the results section. HEPATITIS B SURFACE Routine 07/16/2019 1:41 Resu lts for this ANTIGEN PM DIAGNOSTIC TECHNOLOGIST procedure are i n the results section. POCT-GLUCOSE METER Routine 07/16/2019 1:01 Resul ts for this PM DIAGNOSTIC TECHNOLOGIST procedure are i n the results section. POCT-GLUCOSE METER Routine 07/16/2019 12:03 Resul ts for this PM DIAGNOSTIC TECHNOLOGIST procedure are i n the results section. 2D ECHO W/ DOPPLER Routine 07/16/2019 11:13 Resul ts for this (CW/PW/COLOR) AM DIAGNOSTIC TECHNOLOGIST procedure are in the results section. BASIC METABOLIC PANEL Routine 07/16/2019 8:40 Re sults for this (7) AM DIAGNOSTIC TECHNOLOGIST procedure are i n the results section. POCT-GLUCOSE METER Routine 07/16/2019 8:05 Resul ts for this AM DIAGNOSTIC TECHNOLOGIST procedure are i n the results section. ECG 12-LEAD STAT 07/16/2019 7:43 Results for this AM DIAGNOSTIC TECHNOLOGIST procedure are i n the results section. POCT-GLUCOSE METER Routine 07/16/2019 7:30 Resul ts for this AM DIAGNOSTIC TECHNOLOGIST procedure are i n the results section. XR CHEST 1 VIEW Routine 07/16/2019 7:04 Results for this PORTABLE/BEDSIDE AM DIAGNOSTIC TECHNOLOGIST procedure a re in the results section. POCT-GLUCOSE METER Routine 07/16/2019 5:21 Resul ts for this AM DIAGNOSTIC TECHNOLOGIST procedure are i n the results section. BASIC METABOLIC PANEL STAT 07/16/2019 5:14 Re sults for this (7) AM DIAGNOSTIC TECHNOLOGIST procedure are i n the results section. HEMOGLOBIN A1C Routine 07/16/2019 3:50 Results f or this AM DIAGNOSTIC TECHNOLOGIST procedure are i n the results section. CBC W/PLT COUNT & AUTO Routine 07/16/2019 3:49 R esults for this DIFFERENTIAL AM DIAGNOSTIC TECHNOLOGIST procedure are i n the results section. CBC W/PLT COUNT & AUTO Routine 07/16/2019 3:49 R esults for this DIFFERENTIAL AM DIAGNOSTIC TECHNOLOGIST procedure are i n the results section. LIPID PANEL Routine 07/16/2019 3:49 Results for this AM DIAGNOSTIC TECHNOLOGIST procedure are i n the results section. PHOSPHORUS Routine 07/16/2019 3:49 Results for this AM DIAGNOSTIC TECHNOLOGIST procedure are i n the results section. MAGNESIUM Routine 07/16/2019 3:49 Results for this AM DIAGNOSTIC TECHNOLOGIST procedure are i n the results section. HEPATIC FUNCTION PANEL Routine 07/16/2019 3:49 R esults for this AM DIAGNOSTIC TECHNOLOGIST procedure are i n the results section. BASIC METABOLIC PANEL Routine 07/16/2019 3:49 Re sults for this (7) AM DIAGNOSTIC TECHNOLOGIST procedure are i n the results section. HIV-1 ANTIGEN WITH Routine 07/16/2019 3:48 Resul ts for this HIV-1/2 ANTIBODY AM DIAGNOSTIC TECHNOLOGIST procedure a re in the results section. RPR Routine 07/16/2019 3:48 Results for this AM DIAGNOSTIC TECHNOLOGIST procedure are i n the results section. VITAMIN B12 AND FOLATE Routine 07/16/2019 3:48 R esults for this AM DIAGNOSTIC TECHNOLOGIST procedure are i n the results section. TSH/FREE T4 IF Routine 07/16/2019 3:48 Results f or this INDICATED AM DIAGNOSTIC TECHNOLOGIST procedure are i n the results section. PROTHROMBIN TIME/INR Routine 07/16/2019 3:48 Res ults for this AM DIAGNOSTIC TECHNOLOGIST procedure are i n the results section. POCT-GLUCOSE METER Routine 07/16/2019 3:34 Resul ts for this AM DIAGNOSTIC TECHNOLOGIST procedure are i n the results section. after 02/19/2019 Results EKG-SCANNED (07/21/2019 8:51 AM DIAGNOSTIC TECHNOLOGIST) Narrative Performed At This result has an attachment that is no t available. RHYTHM STRIP - SCAN (07/21/2019 8:50 AM DIAGNOSTIC TECHNOLOGIST) Narrative Performed At This result has an attachment that is no t available. XR chest 1 view portable / bedside (07/18/2019 11:09 AM DIAGNOSTIC TECHNOLOGIST)Only the most recent of2 resultswithin the time period is included. Specimen Narrative Performed At FINAL REPORT [employer] RAD, CHEST, 1 VIEW, NON DEPT INDICATION: r/o pneumonia COMPARISON: July 16, 2019 FINDINGS: Portable frontal view of the c hest. IMPRESSION: Support Lines: Stable left IJ dual-lumen central venous catheter. Lungs and pleura: Lungs are clear. No ef fusion. No pneumothorax. Heart and mediastinum: Stable contours. Additional findings: None. Signed: JR Mccollum Robert MD Report Verified Date/Time:07/18/2019 11:27:35 Reading Location: [facility] Procedure Note Interface, External Ris In - 07/18/2019 11:29 AM DIAGNOSTIC TECHNOLOGIST FINAL REPORT RAD, CHEST, 1 VIEW, NON [...] Verified Date/Time: 07/18/2019 1 1:27:35 Reading Location: [facility] Reading [facility] Performing Organization Address City/[facility] Cent[facility]ode Phone Number [employer] POC-Glucose meter (07/18/2019 8:22 AM DIAGNOSTIC TECHNOLOGIST)Only the most recent of13 results within the time period is included. POC-Glucose Meter 126 (H)Comment: : TESTED 70 - 110 mg/dL [facility] [address], [id number]: Launch Leader/General Internist And Physician Leader ID = [id number] for Baldomero Kuo Specimen Blood Performing Organization Address City/[facility] Centercode Phone Number [facility] [address] [address] CENTER CBC with platelet count + automated diff (07/18/2019 4:37 AM DIAGNOSTIC TECHNOLOGIST)Only the most recent of3 resultswithin the time period is included. WBC 13.0 (H) 3.5 - 10.5 K/L [facility] RBC 3.80 (L) 3.93 - 5.22 M/L [facility] Hemoglobin 11.3 11.2 - 15.7 GM/DL [facility] Hematocrit 35.2 34.1 - 44.9 % [facility] MCV 92.6 79.4 - 94.8 fL [facility] MCH 29.7 25.6 - 32.[address] [facility] MCHC 32.1 (L) 32.2 - 35.5 GM/DL [facility] RDW 13.6 11.7 - 14.4 % [facility] Platelets 233 150 - 450 K/CU MM [facility] MPV 9.5 9.4 - 12.[address] [facility] nRBC 0 0 - 0 /100 WBC [facility] % Neutros 70 % [facility] % Lymphs 20 % [facility] % Monos 7 % [facility] % Eos 2 % [facility] % Baso 1 % [facility] # Neutros 9.09 (H) 1.56 - 6.13 K/L [facility] # Lymphs 2.65 1.18 - 3.74 K/L [facility] # Monos 0.93 (H) 0.24 - 0.36 K/L [facility] # Eos 0.24 0.04 - 0.36 K/L [facility] # Baso 0.07 0.01 - 0.08 K/L [facility] Immature Granulocytes-Relative 0 0 - 1 % C [facility] Specimen Blood Performing Organization Address City/[facility] Centercode Phone Number [address] [address] CENTER Prothrombin time/INR (07/18/2019 4:37 AM DIAGNOSTIC TECHNOLOGIST)Only the most recent of3 results within the time period is included. Protime 12.2 11.9 - 14.2 seconds [facility] INR 1.0 <=5.9 [facility] Specimen Blood Narrative Performed At Effective 01/12/2019: PT Reference Range [facility] Change New: 11.9-14.2Previous: 11.7-14.7 RECOMMENDED COUMADIN/WARFARIN INR THERAPY RANGES STANDARD DOSE: 2.0-3.0Includes: PROPHYLAXIS for venous thrombosis, systemic embolization; TREATMENT for venous thrombosis and/or pulmonary embolus. HIGH RISK: Target INR is 2.5-3.5 for patients wiht mechanical heart valves. Performing Organization Address [facility] Centercout Phone Number [address] [address] CENTER Phosphorus (07/18/2019 4:37 AM DIAGNOSTIC TECHNOLOGIST)Only the most recent of3 resultswithin the time period is included. Phosphorus 4.6 2.3 - 4.7 mg/dL [facility] Specimen Blood Performing Organization Address City/[facility]/Zipcode Phone Number [address] [address] CENTER Magnesium (07/18/2019 4:37 AM DIAGNOSTIC TECHNOLOGIST)Only the most recent of3 resultswithin the time period is included. Magnesium 2.0 1.6 - 2.6 mg/dL [facility] Specimen Blood Performing Organization Address City/[facility]/Zipcode Phone Number [address] [address] [place] Basic metabolic panel (07/18/2019 4:37 AM DIAGNOSTIC TECHNOLOGIST)Only the most recent of5 results within the time period is included. Sodium 134 (L) 136 - 145 meq/L [facility] Potassium 5.0 3.5 - 5.1 meq/L [facility] Chloride 103 98 - 107 meq/L [facility] CO2 25 22 - 29 meq/L [facility] BUN 28 (H) 7 - 21 mg/dL [facility] Creatinine 5.40 (H) 0.57 - 1.25 mg/dL [facility] Glucose 146 (H) 70 - 105 mg/dL [facility] Calcium 8.8 8.4 - 10.2 mg/dL [facility] EGFR 9Comment: ESTIMATED GFR IS mL/min/1.73 sq m [facility] NOT ACCURATE CREATININE [facility] CLEARANCE IN PREDICTING GLOMERULAR FILTRATION RATE. ESTIMATED GFR IS NOT APPLICABLE FOR DIALYSIS PATIENTS. Specimen Blood Performing Organization Address [facility] Centercode Phone Number [address] [address] [place] Screen, urine (07/17/2019 11:36 AM DIAGNOSTIC TECHNOLOGIST) Preg Test, Ur Negative [facility] Specimen Urine Performing Organization Address [facility]/Zipcode Phone Number [place] [phone] [place] [address] [place] MR brain without IV contrast (07/17/2019 12:54 AM DIAGNOSTIC TECHNOLOGIST) Specimen Narrative Performed At FINAL REPORT [place] [...] External Ris In - 07/17/2019 4:57 AM DIAGNOSTIC TECHNOLOGIST FINAL REPORT MR, BRAIN, WITHOUT CONTRAST, MR, [...] 3:28:33 Performing Organization Address City/State/Zipcode Phone Number [facility] MR MRA neck without contrast (07/17/2019 12:54 AM DIAGNOSTIC TECHNOLOGIST) Specimen Narrative Performed At FINAL REPORT [facility] MR, BRAIN, WITHOUT CONTRAST, MR, MRA, NE [...] External Ris In - 07/17/2019 4:57 AM DIAGNOSTIC TECHNOLOGIST FINAL REPORT MR, BRAIN, WITHOUT CONTRAST, MR, [...] 3:28:33 Performing Organization Address City/State/Zipcode Phone Number [facility] MR MRA head without contrast (07/17/2019 12:54 AM DIAGNOSTIC TECHNOLOGIST) Specimen Narrative Performed At FINAL REPORT [employer] LOVELY MR, BRAIN, WITHOUT CONTRAST, MR, MRA, [...] External Ris In - 07/17/2019 4:57 AM DIAGNOSTIC TECHNOLOGIST FINAL REPORT MR, BRAIN, WITHOUT CONTRAST, MR, [...] 3:28:33 Performing Organization Address City/State/Zipcode Phone Number [employer] RIS ECHOCARDIOGRAM REPORT - SCAN (07/16/2019 9:20 PM DIAGNOSTIC TECHNOLOGIST) Narrative Performed At This result has an attachment that is no t available. HEMODIALYSIS INPATIENT (07/16/2019 5:23 PM DIAGNOSTIC TECHNOLOGIST) Narrative Performed At Jeff Mcduffie RN 06/195:24 [...] Hepatitis B surface antigen (07/16/2019 1:41 PM DIAGNOSTIC TECHNOLOGIST) HBsAg Screen Nonreactive Nonreactive [facility] Specimen Blood Performing Organization Address City/State/Zipcode Phone Number [facility] [address] [place] [address] CENTER 2D Echo W/Doppler(CW/PW/Color) (07/16/2019 11:13 AM DIAGNOSTIC TECHNOLOGIST) Ejection Fraction [facility] ECHO HEAR TLAB MKCKESSON CPA Specimen Narrative Performed At Transthoracic Echocardiography Report (T TE) [facility] ECHO HEARTLAB MKCKESSON CPACS Demographics Patient NameSPeyman HUTCHINSON of Study07/16/2019 Gender Female Visit [id number] Race Unknown [id number] Number Date of 1975 ReferringMaoud [facility] Phys[facility] Age 43 year(s) SonographerDaja Arthur [facility] Convex Grinder Yanna McdonaldInterpreting Marcella Yanez MD [facility] Physician Procedure Type of Study TTE [...] External Ris In - 07/16/2019 2:11 PM DIAGNOSTIC TECHNOLOGIST Transthoracic Echocardiography Report (TTE) Demographics Patient Name ARCHANA WOO Date of St udy 07/16/2019 Gender Female Visit Number [id number] Race Unknown [facility] r [id number] Number Date of 1975 Referring Arvin Ann Physician Age 43 year(s) Sonographe r Daja Arthur, [facility] Convex Grinder Yanna Blanchardi MD Oscar [facility]ont Physician Procedure [...] City/State/Zipcode Phone Number [facility] ECHO HEARTLAB MKCKESSON [facility] ECG 12 lead (07/16/2019 7:43 AM DIAGNOSTIC TECHNOLOGIST) Specimen Narrative Performed At Ventricular Rate 87 BPM GE MUSE Atrial Rate 87 BPM P-R Interval 136 ms QRS Duration 72 ms Q-T Interval 380 ms QTC Calculation(Bazett) 457 ms P [place] 68 degrees R [place] 17 degrees T [place] 65 degrees Normal sinus rhythm Normal ECG When compared with ECG of 19-MAR-2017 15 :16, QT has shortened Confirmed by MD GUTIÉRREZ YOCHAI ([id number]) on 07/18/2019 7:35:43 AM Procedure Note Interface, External Ris In - 07/18/2019 7:35 AM DIAGNOSTIC TECHNOLOGIST Ventricular Rate 87 BPM Atrial Rate 87 BPM P-R Interval 136 ms QRS Duration 72 ms Q-T Interval 380 ms QTC Calculation(Bazett) 457 ms P [place] 68 degrees R [place] 17 degrees T [place] 65 degrees Normal sinus rhythm Normal ECG When compared with ECG of 19-MAR-2017 15 :16, QT has shortened Confirmed by MD GUTIÉRREZ YOCHAI ([id number]) on 07/18/2019 7:35:43 AM Performing Organization Address City/[facility] Centercout Phone Number GE MUSE Hemoglobin A1c (07/16/2019 3:50 AM DIAGNOSTIC TECHNOLOGIST) Hemoglobin A1C 9.5 (H) 4.3 - 6.1 % [facility] Specimen Blood Performing Organization Address [facility] Phone Number [address] [address] CENTER Hepatic function panel (07/16/2019 3:49 AM DIAGNOSTIC TECHNOLOGIST) Protein, Total 6.3 6.0 - 8.3 gm/dL [facility] Albumin 3.0 (L) 3.5 - 5.0 g/dL [facility] Total Bilirubin 0.4 0.2 - 1.2 mg/dL [facility] Bilirubin, Direct 0.2 0.1 - 0.5 mg/dL [facility] Alkaline Phosphatase 182 (H) 40 - 150 U/L [facility] AST 63 (H) 5 - 34 U/L [facility] ALT 99 (H) 6 - 55 U/L [facility] Specimen Blood Performing Organization Address [facility] Centercout Phone Number [address] [address] [place] Lipid panel (07/16/2019 3:49 AM DIAGNOSTIC TECHNOLOGIST) Triglycerides 100 mg/dL [facility] Cholesterol 177 mg/dL [facility] HDL 48 mg/dL [facility] LDL Calculated 109 mg/dL [facility] Specimen Blood Narrative Performed At Triglyceride Reference Range: [facility] Low Risk <150 [id number] High Risk 200-499 Very High Risk>=500 Cholesterol Reference Range: Low Risk <200 [id number] High Risk>240 HDL Cholesterol Reference Range: Low Risk >=60 High Risk <40 LDL Cholesterol Reference Range: Optimal<100 Near [id number] [id number] Very High >=190 Performing Organization Address City/State/Zipcode Phone Number [address] [phone] [place] Vitamin B12 and Folate (07/16/2019 3:48 AM DIAGNOSTIC TECHNOLOGIST) Vitamin B12 525 213 - 816 pg/mL [facility] Folate 6.5 (L) >=7.0 ng/mL [facility] Specimen Blood Performing Organization Address City/[facility] Centercode Phone Number [address] [address] [place] TSH/Free T4 If Indicated (07/16/2019 3:48 AM DIAGNOSTIC TECHNOLOGIST) TSH 0.87 0.35 - 4.94 uIU/mL [facility] Specimen Blood Performing Organization Address City/[facility]/Zipcode Phone Number [address] [address] [place] HIV-1 Antigen with HIV-1/2 Antibody (07/16/2019 3:48 AM DIAGNOSTIC TECHNOLOGIST) HIV-1 Antigen with HIV 1&2 Nonreactive Nonreactive [facility] Specimen Blood Performing Organization Address City/State/Zipcode Phone Number [facility] [address] [place] [address] CENTER RPR (07/16/2019 3:48 AM DIAGNOSTIC TECHNOLOGIST) RPR Nonreactive Nonreactive [facility] Specimen Blood Performing Organization Address City/State/Zipcode Phone Number [facility] [address] [place] [address] CENTER after 02/19/2019 Insurance Payer Benefit Plan / Subscriber ID Type Phone Address Group [facility] MEDICARE xxxxxxxxx MEDICARE MGD CARE HMO MEDICAID - MEDICAID [place] [employer] xxxxxxxxx Medicaid Contracted MGD CARE PLAN Advance Directives For more information, please contact:[place] [phone] [place], [place] [phone] Code Status Date Activated Date Inactivated Comments Full Code 07/16/2019 12:46 AM 07/18/2019 4:56 PM This code status was determined by: Patient Full Code 03/14/2017 8:30 PM 03/20/2017 12:11 PM This code status was determined by: Patient
--- OUTSIDE RECORDS SUMMARY | 2020-02-20 22:38 | XMS REPORT | Continuity of Care Document ---
:[address] [facility] [place], [place] Address [address] [place] [address] Care Team Providers Name Role Phone Stella REYNOSO Attending Clinician Seth REYNOSO Attending Clinician Graham Schultz MD Attending Clinician Raphael REYNOSO Attending Clinician STELLA Attending Clinician Unavailable LYN EDWARDS Attending Clinician Unavailable Graham SCHULTZ Admitting Clinician Unavailable LYN EDWARDS Admitting Clinician Unavailable Payers Payer Name Policy Policy Number Effective Expiration Source Type Date Date [facility] - xxxxxxxxx [facility] MEDICARE MGD CAREUNITED L ukes - MEDICARE HMOxxxxxxxxx [facility] MEDICAID - MEDICAID MGD xxxxxxxxx [facility] CAREMCD COMM STAR [facility] - PLANxxxxxxxxxMedicaid [facility] Contracted Center Problems Condition Condition Condition Status Onset Resolution Last Treating Co mments Source Name Details Category Date Date Treatment Clinician Date Left sided Left sided Disease Active 2018-[address] numbness numbness 09-15 [facility] 00:[facility]: Medical 00 [place] ESRD on ESRD on Disease Active 2018-[address] [facility] dialysis dialysis 09-15 [facility] - 00:[facility]: Medical 00 [place] Proteinuri Proteinuri Disease Active [facility] [...] 03-16 [facility] - encephalop encephalop 00:00: Nd dical athy athy 00 Center Cerebrovas Cerebrovas [...] 03-15 Carolann kes - phageal phageal 00:00: [facility] reflux reflux 00 [place] disease) disease) COPD COPD Disease Active [facility] ([facility]ronic (chronic 03-15 [facility] - obstructiv obstructiv 00:00: Nd dical e e 00 Center pulmonary pulmonary [...] 7-30 Carolann kes - y y 00:00: [place] [address] Center Allergies, Adverse Reactions, Alerts Allergy Allergy Status Severity Reaction(s) Onset Inactive Treating Comm ents Source Name Type Date Date Clinician No Known DA Active [facility]ie 08-22 [place] 00:[facility]: [address] Family History Family Member Diagnosis Comments Start Date Stop Date Source Natural father Hypertension [facility] Natural mother Diabetes [facility] Natural mother Kidney disease [facility] Social History Social Habit Start Date Stop Date Quantity Comments Source Sex Assigned At [facility] Smoking Status Start Date Stop Date Source Current every day smoker 2019-07-16 00:00:00 [facility] Medications Ordered Filled Start Stop Current Ordering [...] for 30 days. cyclobenzap 2018-08 Yes 2.5mg Q.[id number] Take 2.[address] rine 0-16 [id number] mg by [facility] - (FLEXERIL) 00:00: 3D mouth 3 Medi ghassan 5 MG tablet 00 (three) Cente r times daily. DULoxetine 2018-08 Yes 30mg QD Take [address] (CYMBALTA) 0-16 by mouth [facility] - 30 MG 00:00: daily. Medical capsule [address] [place] [address] famotidine 2018-08 Yes 20mg QD Take 20 [...] Center needed for Anxiety. busPIRone Yes 10mg Q.[id number] Take [address] (BUSPAR) 10 7-30 [id number] by mouth 3 [facility] - MG tablet [...] Source Systolic blood 2019-07-18 11:00:00 163 mm[Hg] [facility] Diastolic blood 2019-07-18 11:00:00 76 mm[Hg] [facility] S t [facility] pressure [facility] Heart rate 2019-07-18 11:00:00 85 /min [facility] Body temperature 2019-07-18 11:00:00 36.5 Mallory [facility] Respiratory rate 2019-07-18 11:00:00 18 /min [facility] Oxygen saturation in 2019-07-18 11:00:00 98 /min [facility] Arterial blood by Medical Ce nter Pulse oximetry Body weight Measured 2019-07-16 17:08:00 98.8 kg [facility] BMI 2019-07-16 17:08:00 37.39 kg/m2 [facility] Body height 2019-07-15 21:22:00 162.6 cm [facility] Procedures Procedure Date / Time Performing Clinician Source Performed REPORT OF PROCEDURE - 2019-07-21 08:51:04 Provider, Default [facility] ENDOSCOPY SCAN Scanning [facility] RHYTHM STRIP - SCAN 2019-07-21 08:50:54 Provider, Default [facility] XR CHEST 1 VIEW 2019-07-18 11:09:[address] [facility] PORTABLE/BEDSIDE [facility] POCT-GLUCOSE METER 2019-07-18 08:22:00 Ann Lim [facility] BASIC METABOLIC PANEL (7) 2019-07-18 04:37:00 [facility] MAGN[facility]UM 2019-07-18 04:37:00 [facility] PHOSPHORUS 2019-07-18 04:37:00 [facility] PROTHROMBIN TIME/INR 2019-07-18 04:37:00 [facility] CBC W/PLT COUNT & AUTO 2019-07-18 04:37:00 [facility] POCT-GLUCOSE METER 2019-07-17 20:56:00 Shania Schultz [facility] POCT-GLUCOSE METER 2019-07-17 17:07:00 Shania Schultz [facility] POCT-GLUCOSE METER 2019-07-17 12:28:00 Shania Schultz [facility] SCREEN, URINE 2019-07-17 11:36:00 Ann Cook [facility] POCT-GLUCOSE METER 2019-07-17 07:18:00 Shania Schultz [facility] BASIC METABOLIC PANEL (7) 2019-07-17 05:55:00 [facility] MAGNESIUM 2019-07-17 05:55:00 [facility] PHOSPHORUS 2019-07-17 05:55:00 [facility] PROTHROMBIN TIME/INR 2019-07-17 05:55:00 [facility] CBC W/PLT COUNT & AUTO 2019-07-17 05:55:00 [facility] MRA HEAD WITHOUT IV 2019-07-17 00:54:00 [facility] MRA NECK WITHOUT IV 2019-07-17 00:54:00 [facility] MR BRAIN WITHOUT IV 2019-07-17 00:54:00 [facility] ECHOCARDIOGRAM REPORT - 2019-07-16 21:20:18 Provider, Default [facility] POCT-GLUCOSE METER 2019-07-16 21:03:00 Shania Schultz [facility] HEMODIALYSIS INPATIENT 2019-07-16 17:23:31 Ashwin Cole [facility] POCT-GLUCOSE METER 2019-07-16 17:21:00 Shania Schultz [facility] HEPATITIS B SURFACE 2019-07-16 13:41:00 Ashwin Cole [facility] POCT-GLUCOSE METER 2019-07-16 13:01:00 Shania Schultz [facility] POCT-GLUCOSE METER 2019-07-16 12:03:00 Shania Schultz [facility] 2D ECHO W/ DOPPLER 2019-07-16 11:13:59 [facility] (CW/PW/COLOR) [facility] BASIC METABOLIC PANEL (7) 2019-07-16 08:40:00 [facility] POCT-GLUCOSE METER 2019-07-16 08:05:00 Shania Schultz [facility] ECG 12-LEAD 2019-07-16 07:43:10 [facility] POCT-GLUCOSE METER 2019-07-16 07:30:00 [facility] 1 VIEW 2019-07-16 07:04:00 [facility] PORTABLE/BEDSIDE [facility] [place] POCT-GLUCOSE METER 2019-07-16 05:21:00 [facility] BASIC METABOLIC PANEL (7) 2019-07-16 05:14:00 [facility] HEMOGLOBIN A1C 2019-07-16 03:50:00 [facility] BASIC METABOLIC PANEL (7) 2019-07-16 03:49:00 [facility] HEPATIC FUNCTION PANEL 2019-07-16 03:49:00 [facility] MAGNESIUM 2019-07-16 03:49:00 [facility] PHOSPHORUS 2019-07-16 03:49:00 [facility] LIPID PANEL 2019-07-16 03:49:00 [facility] CBC W/PLT COUNT & AUTO 2019-07-16 03:49:00 [facility] PROTHROMBIN TIME/INR 2019-07-16 03:48:00 [facility] TSH/FREE T4 IF INDICATED 2019-07-16 03:48:00 [facility] VITAMIN B12 AND FOLATE 2019-07-16 03:48:00 [facility] RPR 2019-07-16 03:48:00 [facility] HIV-1 ANTIGEN WITH HIV-1/2 2019-07-16 03:48:[address] [facility] POCT-GLUCOSE METER 2019-07-16 03:34:00 Arvin Ann [facility] 4O2P37M 2019-05-18 00:00:00 ENCPL 2F1C15W 2019-05-18 00:00:00 ENCPL 6D0V22R 2019-05-18 00:00:00 ENCPL 6Q4T63Q 2019-05-18 00:00:00 ENCPL Plan of Care Planned [...] es - Test 00:00:00 [facility] (procedure) [code = 826387933] Future Scheduled [address] [facility] - Test 00:00:00 2-64 YEARS AT RISK (1 [facility] Center of 3 - PCV13) [code = PNEUMOCOCCAL VACCINE 2-64 YEARS AT RISK (1 of 3 - PCV13)] Encounters Start End Encounter Admission Attending Care Care Encounter Source Date/Time Date/Time Type Type Clinicians Facility Department ID 2019-04-12 Inpatient [facility] [id number] [facility] W 13:57:46 Results Test Description Test Time [...] to HBV infection.~~~~~ ~~~~~~~~~~~~~~~~~~~~~~~~~~~~~~~~~~~~~~~~~~~~~~~~~~~~~~~ AG HEPATITIS B [id number] 18:16:00 Test Item Value Reference Range Interpretation Comments AG HEPATITIS B SURFACE (test code = NEGATIVE NONREACTIVE HBSAG) HIV 12 AB [id number] 18:16:00 Test Item Value Reference Range Interpretation Comments HIV 1 2 COMBO AG/AB SCREEN AB/AG NON REACTIVE NONREACTIVE (test code = [id number]) HEPATITIS B SURF AB, [id number] 17:51:00 Test Item Value Reference Range Interpretation Comments HEPATITIS B SURF AB, QUANT (test code mIU/mL = HBSABQ) AG HEPATITIS B [id number] 17:51:00 Test Item Value Reference Range Interpretation Comments AG HEPATITIS B SURFACE (test code = NEGATIVE NONREACTIVE HBSAG) HIV 12 AB [id number] 17:51:00 Test Item Value Reference Range Interpretation Comments HIV 1 2 COMBO AG/AB SCREEN AB/AG NON REACTIVE NONREACTIVE (test code = [id number]) HEPATITIS B SURF AB, [id number] 17:39:00 Test Item Value Reference Range Interpretation Comments HEPATITIS B SURF AB, QUANT (test code mIU/mL = HBSABQ) AG HEPATITIS B [id number] 17:39:00 Test Item Value Reference Range Interpretation Comments AG HEPATITIS B SURFACE (test code = NEGATIVE NONREACTIVE HBSAG) HIV 12 AB [id number] 17:39:00 Test Item Value Reference Range Interpretation Comments HIV 1 2 COMBO AG/AB SCREEN (test code = NONREACTIVE [id number]) GLUCOSE BEDSIDE [id number] 12:00:00 Test Item Value Reference Range Interpretation Comments GLUCOSE BEDSIDE TESTING (test code 136 MG/DL 60-99 H = GLUBED) GLUCOSE BEDSIDE [id number] 21:08:00 Test Item Value Reference Range Interpretation Comments GLUCOSE BEDSIDE TESTING (test code = 84 MG/DL 60-99 N GLUBED) BASIC METABOLIC [id number] 16:40:00 Test Item Value Reference Range Interpretation [...] 9.0 MG/DL 8.4-10.2 N CA) HCG SERUM [id number] 16:40:00 Test Item Value Reference Range Interpretation Comments HCG SERUM QUAL (test code = HCGQL) NEGATIVE NEGATIVE A PROTHROMBIN [id number] 16:32:00 Test Item Value Reference Range Interpretation [...] sunshine embolism. 3.0 - 4.5 Comments to Back Hand: PREOPPTT [id number] 16:32:00 Test Item Value Reference Range Interpretation Comments PTT ACTIVATED (test code = APTT) 30.3 SECONDS 22.0-33.0 N Comments to Back Hand: PREOPBASIC METABOLIC [id number] 16:32:00 Test Item Value Reference Range Interpretation [...] code = CA) MG/DL 8.7-9.7 HCG SERUM [id number] 16:32:00 Test Item Value Reference Range Interpretation Comments HCG SERUM QUAL (test code = HCGQL) NEGATIVE NEGATIVE A BASIC METABOLIC [id number] 16:31:00 Test Item Value Reference Range Interpretation [...] code = CA) MG/DL 8.7-9.7 HCG SERUM [id number] 16:31:00 Test Item Value Reference Range Interpretation Comments HCG SERUM QUAL (test code = HCGQL) NEGATIVE CBC W/AUTO [id number] 16:25:00 Test Item Value Reference Range Interpretation [...] 0.00 K/mm3 0.0-0.1 N NRBC#) GLUCOSE BEDSIDE [id number] 18:41:00 Test Item Value Reference Range Interpretation Comments GLUCOSE BEDSIDE TESTING (test code = 83 MG/DL 60-99 N GLUBED) BASIC METABOLIC [id number] 15:04:00 Test Item Value Reference Range Interpretation [...] 9.1 MG/DL 8.4-10.2 N CA) BASIC METABOLIC [id number] 15:00:00 Test Item Value Reference Range Interpretation [...] code = CA) MG/DL 8.7-9.7 HCG SERUM [id number] 14:59:00 Test Item Value Reference Range Interpretation Comments HCG SERUM QUAL (test code = HCGQL) NEGATIVE NEGATIVE A PROTHROMBIN [id number] 14:56:00 Test Item Value Reference Range Interpretation [...] syste sunshine embolism. 3.0 - 4.5 PTT [id number] 14:56:00 Test Item Value Reference Range Interpretation Comments PTT ACTIVATED (test code = APTT) 27.9 SECONDS 22.0-33.0 N CBC W/AUTO [id number] 14:43:00 Test Item Value Reference Range Interpretation [...] N NRBC#) RAD, CHEST, 1 VIEW, NON [id number] 11:27:00Reason for exam:->r/o pneumoniaShould this be performed [...] MDReport Verified Date/Time: 07/18/2019 11:27:35 Reading Location: [facility] Radiology Reading Room XR chest 1 view portable / [id number] 11:27:00 Interface, External Ris In 07/18/2019 11:29 [...] Robert MDReport Verified Date/Time: 07/18/201911:27:35 Reading Location: [facility] Rad[facility] Reading [facility] [id number] 08:34:00 Test Item Value Reference Range Interpretation Comments POC-Glucose Meter (test 126 mg/dL 70-110 H : TE STED AT [facility] code = 1538) [address] [facility], 770 30: Abatement Worker/Techni tammy ID = [id number] for Lenora Kuo onregulo Lab Interpretation (test Abnormal code = 37271-2) [facility]-GLUCOSE [id number] 08:34:00 Test Item Value Reference Range Interpretation Comments POC-GLUCOSE METER 126 mg/dL 70-110 H : TESTED A T [facility] 6720 (BEAKER) (test code = [facility] Isabel [facility], 1538) [address]: Abatement Worker/Techni tammy ID = [id number] for Baldomero Carney ECG 12 [id number] 07:35:45Interface, External Ris In - 07/18/2019 7:35 AM CSTVentricular Rate 87 BPMAtrial Rate 87 BPMP-R Interval 136 msQRS Duration 72 msQ-T Interval 380 msQTC Calculation(Bazett) 457 msP Sted[place] 68 degreesR [place] 17 degreesT [place] 65 degreesNormal sinus rhythmNormal ECGWhen compared with ECG of 19-MAR-2017 15:16,QT has shortenedConfirmed by MD BROCK, LAKSHMI ([id number]) on 07/18/2019 7:35:43 [facility] metabolic [id number] 06:56:00 Test Item Value Reference Range Interpretation [...] Calcium (test code = 8.8 mg/dL 8.4-10.2 72585-9) EGFR (test code = 9 mL/min/1.73 [place] [address]-1) NOT ACCURATE CREATININE CLEARANCE IN PREDICTING GLOMERULAR FILTRATION RATE . ESTIMATED GFR I S NOT APPLICABLE FOR DIALYSIS PATIEN TS. Lab Interpretation Abnormal (test code = 37896-9) [facility] METABOLIC [id number] 06:56:00 Test Item Value Reference Range Interpretation [...] S NOT APPLICABLE FOR DIALYSIS PATIEN TS. [id number] 06:45:00 Test Item Value Reference Range Interpretation Comments Magnesium (test code = 58748-9) 2.0 mg/dL 1.6-2.6 Lab Interpretation (test code = Normal 37350-2) [facility] 06:45:00 Test Item Value Reference Range Interpretation Comments Phosphorus (test code = 2777-1) 4.6 mg/dL 2.3-4.7 Lab Interpretation (test code = Normal 87490-5) [facility]ium[facility]OS[facility]US2019-12-02 06:45:00 Test Item Value Reference Range Interpretation Comments PHOSPHORUS (BEAKER) (test code = 4.6 mg/dL 2.3-4.7 604) [id number] 06:45:00 Test Item Value Reference Range Interpretation Comments MAGNESIUM (BEAKER) (test code = 2.0 mg/dL 1.6-2.6 627) CBC with platelet count + automated [id number] 05:35:00 Test Item Value Reference Range Interpretation [...] 450 K/CU MM MPV (test code = 36579-7) 9.5 fL 9.4-12.3 nRBC (test code = [...] 2801) Lab Interpretation (test code = Abnormal 89321-1) [facility] W/PLT COUNT & AUTO [id number] 05:35:00 Test Item Value Reference Range Interpretation [...] PERCENT (BEAKER) (test code = 2801) Prothrombin time/[id number] 05:24:00 Test Item Value Reference Range Interpretation [...] valves. Lab Interpretation Normal (test code = 24956-1) [facility]ium[facility] TIME/[id number] 05:24:00 Test Item Value Reference Range Interpretation [...] is2.5-3.5 for patients wiht mechanical heart valves.POCT-GLUCOSE [id number] 21:08:00 Test Item Value Reference Range Interpretation Comments POC-GLUCOSE METER 191 mg/dL 70-110 H : TESTED A T [facility] 6720 ([employer] (test code = [facility], 1538) [address]: Abatement Worker/Techni tammy ID = [id number] for Keith Quintero POCT-GLUCOSE [id number] 17:20:00 Test Item Value Reference Range Interpretation Comments POC-GLUCOSE METER 168 mg/dL 70-110 H : TESTED A T [facility] 6720 ([employer]ule[employer]ER) (test code = [facility] [employer] [facility], 1538) [address]: Abatement Worker/Techni tammy ID = [id number] for HU NT, MAVIS POCT-GLUCOSE [id number] 12:49:00 Test Item Value Reference Range Interpretation Comments POC-GLUCOSE METER 221 mg/dL 70-110 H : TESTED A T [facility] 6720 (BEAKER) (test code = [facility] [employer] [facility], 1538) 25275: Abatement Worker/Techni tammy ID = [id number] for HU NT, MAVIS Screen, [id number] 11:54:00 Test Item Value Reference Range Interpretation Comments Preg Test, Ur (test code = 2112-1) Negative [facility], [id number] 11:54:00 Test Item Value Reference Range Interpretation Comments TEST URINE (BEAKER) (test Negative code = 583) POCT-GLUCOSE [id number] 09:11:00 Test Item Value Reference Range Interpretation Comments POC-GLUCOSE METER 112 mg/dL 70-110 H : TESTED A T [facility] 6720 (BEAKER) (test code = [facility] [employer] [facility], 1538) [address]: Abatement Worker/Techni tammy ID = [id number] for MAVIS GARRIDO BASIC METABOLIC [id number] 06:50:00 Test Item Value Reference Range Interpretation [...] S NOT APPLICABLE FOR DIALYSIS PATIEN TS. [id number] 06:38:00 Test Item Value Reference Range Interpretation Comments PHOSPHORUS (BEAKER) (test code = 3.9 mg/dL 2.3-4.7 604) [id number] 06:38:00 Test Item Value Reference Range Interpretation Comments MAGNESIUM (BEAKER) (test code = 1.9 mg/dL 1.6-2.6 627) PROTHROMBIN TIME/[id number] 06:12:00 Test Item Value Reference Range Interpretation [...] mechanical heart valves.CBC W/PLT COUNT & AUTO [id number] 06:06:00 Test Item Value Reference Range Interpretation [...] 0-1 PERCENT (BEAKER) (test code = 2801) [id number] 04:27:00 Test Item Value Reference Range Interpretation Comments RPR (test code = 70438-6) Nonreactive Nonreactive Lab Interpretation (test code = Normal 38870-2) [facility] 04:27:00 Test Item Value Reference Range Interpretation Comments RPR SCREEN (BEAKER) (test code = Nonreactive Nonreactive 420) MR, MRA, BRAIN, WITHOUT [id number] 03:28:00Reason for exam:- >StrokeWhat is the patient's [...] 07/17/2019 03:28:33 MR, MRA, NECK, WITHOUT IV [id number] 03:28:00FINAL REPORT MR, BRAIN, WITHOUT CONTRAST, MR, [...] Verified Date/Time: 07/17/2019 03:28:33 MR, BRAIN, WITHOUT [id number] 03:28:00 Reason for exam:->StrokeWhat is the patient's [...] Date/Time: 07/17/2019 03:28:33 MR MRA head without [id number] 03:28:00 Interface, External Ris In - 07/17/2019 [...] Yg Conley MDReport Verified Date/Time: 07/17/2019 03:28:33 [facility] [id number] 03:28:00Interface, External Ris In - 07/17/2019 4:57 [...] Yg Conley MDReport Verified Date/Time: 07/17/2019 03:28:33 [facility] [id number] 03:28:00Interface, External Ris In - 07/17/2019 4:57 [...] Yg Conley MDReport Verified Date/Time: 07/17/2019 03:28:33 [facility] [id number] 21:16:00 Test Item Value Reference Range Interpretation Comments POC-GLUCOSE METER 143 mg/dL 70-110 H : TESTED A T [facility] 6720 (BEAKER) (test code = [address] [employer] [facility], 1538) [address]96: Abatement Worker/Techni tammy ID = [id number] for JANELL GEORGE POCT-GLUCOSE [id number] 17:33:00 Test Item Value Reference Range Interpretation Comments POC-GLUCOSE METER 108 mg/dL 70-110 : TESTED A T [facility] 6720 (BEAKER) (test code = [employer] [facility], 1538) 11897: Abatement Worker/Techni tammy ID = [id number] for TAVON DUVALL POCT-GLUCOSE [id number] 17:25:00 Test Item Value Reference Range Interpretation Comments POC-GLUCOSE METER 155 mg/dL 70-110 H : TESTED A T [facility] 6720 (BEAKER) (test code = [employer] [facility], 1538) 79393: Abatement Worker/Techni tammy ID = [id number] for SIMON CHO HEMODIALYSIS [id number] 17:23:31Tavon Mcduffie RN 07/16/2019 5:24 PMVerified HD [...] Results Component Value Date HEPBSAG Nonreactive 07/16/2019[facility] B surface [id number] 14:30:00 Test Item Value Reference Range Interpretation Comments HBsAg Screen (test code = 5195-3) Nonreactive Nonreactive Lab Interpretation (test code = Normal 58586-0) [facility] B SURFACE [id number] 14:30:00 Test Item Value Reference Range Interpretation Comments HEPATITIS B SURFACE ANTIGEN (2) Nonreactive Nonreactive (BEAKER) (test code = 2585) 2D Echo W/Doppler(CW/PW/Color)2019-07-16 14:11:04Ejection FractionSLEH ECHO HEARTLAB MKCKESSON CPACSInterface, External Ris In - 07/16/2019 2:11 PM C STTransthoracic Echocardiography Report (TTE) Demographics Patient Name GIGI CONROY Date of Study 07/16/2019 Gender Female Visit Number [id number] Race Unknown Room Number 7605 Number Date of 1975 Referring Arvin Ann Physician Age 43 year(s) Herbarium Curator Daja Arthur, [facility] Flanging Roll Operator Yanna Mcdonald Interpreting MD Oscar Silver Physician [...] TR Velocity: 2.31 m/s TR Gradient: 21.42 mmHgMonrovia Community HospitalCT- GLUCOSE [id number] 12:17:00 Test Item Value Reference Range Interpretation Comments POC-GLUCOSE METER 146 mg/dL 70-110 H : TESTED A T [facility] 6720 ([employer]) (test code = [facility], 1538) 78993: Abatement Worker/Techni tammy ID = [id number] for MAVIS GARRIDO BASIC METABOLIC [id number] 09:26:00 Test Item Value Reference Range Interpretation [...] NOT APPLICABLE FOR DIALYSIS PATIEN TS. POCT-GLUCOSE [id number] 08:27:00 Test Item Value Reference Range Interpretation Comments POC-GLUCOSE METER 106 mg/dL 70-110 : TESTED A T [facility] 6720 (BEAKER) (test code = [facility], 1538) 32838: Abatement Worker/Techni tammy ID = [id number] for SIMON CHO POCT-GLUCOSE [id number] 07:46:00 Test Item Value Reference Range Interpretation Comments POC-GLUCOSE METER 171 mg/dL 70-110 H : TESTED A T [facility] 6720 (BEAKER) (test code [facility], = 1538) 13857: Abatement Worker/Techni tammy ID = [id number] for YASMINE VO RAD, CHEST, 1 VIEW, NON [id number] 07:36:00Reason for exam:- >baselineShould this be performed [...] MDReport Verified Date/Time: 07/16/2019 07:36:01 Reading Location: [facility] B1 C013Y CT Body Reading Room Hemoglobin [id number] 06:42:00 Test Item Value Reference Range Interpretation Comments Hemoglobin A1C (test code = 4548-4) 9.5 % 4.3-6.1 H Lab Interpretation (test code = Abnormal 69967-4) [facility]MO[facility] [id number] 06:42:00 Test Item Value Reference Range Interpretation Comments HEMOGLOBIN A1C (BEAKER) (test code = 9.5 % 4.3-6.1 H 368) BASIC METABOLIC [id number] 06:27:00 Test Item Value Reference Range Interpretation [...] DIALYSIS PATIEN TS. HIV-1 Antigen with HIV-1/2 [id number] 05:52:00 Test Item Value Reference Range Interpretation Comments HIV-1 Antigen with HIV 1&2 Nonreactive Nonreactive Antibody (test code = 17642-1) Lab Interpretation (test code = Normal 49205-2) [facility] ANTIGEN WITH HIV-1/2 [id number] 05:52:00 Test Item Value Reference Range Interpretation Comments HIV-1 ANTIGEN WITH HIV 1\T\2 Nonreactive Nonreactive ANTIBODY (2) (BEAKER) (test code = 2586) POCT-GLUCOSE [id number] 05:38:00 Test Item Value Reference Range Interpretation Comments POC-GLUCOSE METER 420 mg/dL 70-110 HH : Notified RN/MD: TESTED (BEAKER) (test code AT [facility] [address] = 1538) [place] [address] 30: Abatement Worker/Techni tammy ID = [id number] for YASMINE VO TSH/Free T4 If [id number] 05:11:00 Test Item Value Reference Range Interpretation Comments TSH (test code = 71756-2) 0.87 0.35- 4.94 uIU/mL Lab Interpretation (test code = Normal 72398-0) [facility] [id number] 05:11:00 Test Item Value Reference Range Interpretation Comments Vitamin B12 (test code = 2132-9) 525 pg/mL 213-816 Folate (test code = 2284-8) 6.5 ng/mL >=7.0 L Lab Interpretation (test code = Abnormal 86371-6) [facility] T4 IF [id number] 05:11:00 Test Item Value Reference Range Interpretation Comments THYROID STIMULATING HORMONE 0.87 uIU/mL 0.35-4.94 (BEAKER) (test code = 772) VITAMIN B12 AND [id number] 05:11:00 Test Item Value Reference Range Interpretation Comments VITAMIN B12 (BEAKER) (test code = 525 pg/mL 213-816 774) FOLATE (BEAKER) (test code = 362) 6.5 ng/mL >=7.0 L BASIC METABOLIC [id number] 04:57:00 Test Item Value Reference Range Interpretation [...] NOT APPLICABLE FOR DIALYSIS PATIEN TS. Lipid [id number] 04:47:00 Test Item Value Reference Range Interpretation Comments Triglycerides (test 100 mg/dL code = 2571-8) Cholesterol (test code 177 mg/dL = 2093-3) HDL (test code = 48 mg/dL 5-9) LDL Calculated (test 109 mg/dL code = 33716-6) YAKELIN (test code = YAKELIN) Triglyceride Reference Range: Low Risk <150 Borderline 150-199 High Risk 200-499 Very High Risk >=500 Cholesterol Reference Range: Low Risk <200 Borderline 200-239 High Risk >240 HDL Cholesterol Reference Range: Low Risk >=60 High Risk <40 LDL Cholesterol Reference Range: Optimal <100 Near Optimal 100-129 Borderline 130-159 High 160-189 Very High >=190 [facility] [id number] 04:47:00 Test Item Value Reference Range Interpretation Comments Protein, Total (test code = 2885-2) 6.3 6.0- 8.3 gm/dL Albumin (test code = 74929-2) 3.0 g/dL 3.5-5 L Total Bilirubin (test code = 0.4 mg/dL 0.2-1.2 1974-2) Bilirubin, Direct (test code = 0.2 mg/dL 0.1-0.5 1967-7) Alkaline Phosphatase (test code = 182 U/L 40-150 H 6768-6) AST (test code = 1920-8) 63 U/L 5-34 H ALT (test code = 1742-6) 99 U/L 6-55 H Lab Interpretation (test code = Abnormal 42758-2) [facility] 04:47:00 Test Item Value Reference Range Interpretation Comments PHOSPHORUS (BEAKER) (test code = 5.5 mg/dL 2.3-4.7 H 604) [id number] 04:47:00 Test Item Value Reference Range Interpretation Comments MAGNESIUM (BEAKER) (test code = 2.0 mg/dL 1.6-2.6 627) LIPID [id number] 04:47:00 Test Item Value Reference Range Interpretation [...] 130-159 High 160-189 Very High >=190HEPATIC FUNCTION [id number] 04:47:00 Test Item Value Reference Range Interpretation [...] = 99 U/L 6-55 H 347) PROTHROMBIN [id number] 04:11:00 Test Item Value Reference Range Interpretation [...] mechanical heart valves.CBC W/PLT COUNT & AUTO [id number] 04:03:00 Test Item Value Reference Range Interpretation [...] PERCENT (BEAKER) (test code = 2801) POCT-GLUCOSE [id number] 03:47:00 Test Item Value Reference Range Interpretation Comments POC-GLUCOSE METER > mg/dL 70-110 HH : Notified RN/MD: TESTED (BEAKER) (test code = AT [facility] [address] [facility] 1538) [place] [address] 30: Abatement Worker/Techni tammy ID = [id number] for SYLVIA JONES FACTOR 5 LEIDEN PCR (THROMBOTIC RISK)2017-03-24 19:24:00 Test Item Value Reference Range Interpretation Comments FACTOR V LEIDEN Negative for the R506Q (BEAKER) (test code = (Factor V Leiden) 718) mutation [id number] Martínez Wang MD (BEAKER) (test code = (electronic signature) 8147) This test is a genotyping assay which [...] its performance characteristics determined bythe [facility], Section of Molecular Pathology. It has not been cleared or approved by the U.S. Food and Drug Administration (FDA), since FDA approval is not requ ired for clinical use of the test. Validation was done as required by the Clinical Laboratory Improvement Amendments of 1988.POCT-GLUCOSE [id number] 07:28:00 Test Item Value Reference Range Interpretation Comments POC-GLUCOSE METER 200 mg/dL 70-[address] [facility] [address] [facility] (test code = [address] [place] 1538) [address] POCT-GLUCOSE [id number] 21:18:00 Test Item Value Reference Range Interpretation Comments POC-GLUCOSE METER 211 mg/dL 70-[address] [facility] [address] ([facility]) (test code = [address] [facility] 1538) [address] PROTEIN, RANDOM [id number] 19:43:00 Test Item Value Reference Range Interpretation Comments PROTEIN, URINE (BEAKER) (test code 286 mg/dL 0-14 H = 1569) CREATININE, RANDOM [id number] 18:27:00 Test Item Value Reference Range Interpretation [...] Normal Hexagonal (BEAKER) (test code = Phospholipid 407775) [id number] Martínez Wang MD (BEAKER) (test code = (electronic 2610) signature) DRVV SCREEN RATIO 0.84 <1.20 (BEAKER) (test code = 9067) Effective 12/20/2013: Test Method ChangeDRVV Screen Ratio, DRVV 1/1 Screen Ratio, DRVV Confirm Ratio,DRVV Normalized Ratio Reference Range: <1.2Protime Reference Range ChangeNew: 11.7-14.7 Previous: 9.8-12.0PTT Reference Range ChangeNew: 22.5-36.0 Previous: 25.8-34.5URINE [id number] 11:40:00 Test Item Value Reference Range Interpretation Comments CULTURE ([facility]) (test 20-29,000 col/mL skin code = 1095) lei POCT-GLUCOSE [id number] 08:33:00 Test Item Value Reference Range Interpretation Comments POC-GLUCOSE METER 293 mg/dL 70-[address] [facility] [address] ([facility]) (test code = [address] [place] 1538) [address] VITAMIN D, 23-[id number] 07:49:00 Test Item Value Reference Range Interpretation Comments VITAMIN D 25-OH ([facility]) (test code = < ng/mL 13.0-47.8 L 2764) CBC W/PLT COUNT & AUTO [id number] 05:59:00 Test Item Value Reference Range Interpretation [...] (BEAKER) (test code = 2801) BASIC METABOLIC [id number] 05:38:00 Test Item Value Reference Range Interpretation [...] S NOT APPLICABLE FOR DIALYSIS PATIEN TS. [id number] 05:37:00 Test Item Value Reference Range Interpretation Comments PHOSPHORUS (BEAKER) (test code = 4.1 mg/dL 2.3-4.7 604) [id number] 05:37:00 Test Item Value Reference Range Interpretation Comments MAGNESIUM (BEAKER) (test code = 1.7 mg/dL 1.6-2.6 627) PTH, [id number] 05:34:00 Test Item Value Reference Range Interpretation Comments PARATHYROID HORMONE INTACT 57.2 pg/mL 8.5-72.5 ([employer] (test code = 577) Effective 07/04/2014: Reference Range ChangeNew: 8.5-72.5 Previous: 15.0-90.0 CARDIOLIPIN ANTIBODIES, IGG AND [id number] 22:36:00 Test Item Value Reference Range Interpretation Comments ANTICARDIOLIPIN IGG ANTIBODY ([employer] < GPL (test code = 712) ANTICARDIOLIPIN IGM ANTIBODY ([employer] 2.8 MPL (test code = 713) Anticardiolipin IgG Result Interpretation:NEG: <20 GPL; U/mlPOS: >/=20 GPL; U/mlAnticardiolipin IgM Result Interpretation:NEG: <20 MPL; U/mlPOS: >/=20 MPL; U/mlPOCT-GLUCOSE [id number] 21:25:00 Test Item Value Reference Range Interpretation Comments POC-GLUCOSE METER 198 mg/dL 70-110 H TESTED AT [place] [address] ([employer] (test code = [facility] 1538) [address] POCT-GLUCOSE [id number] 16:29:00 Test Item Value Reference Range Interpretation Comments POC-GLUCOSE METER 296 mg/dL 70-[address] [facility] [address] [facility] (test code = [facility] 1538) [address] ANTI-NUCLEAR ANTIBODY (MARY)2017-03-18 15:30:00 Test Item Value Reference Range Interpretation Comments ANTI-NUCLEAR ANTIBODY (MARY) ([employer] Negative Negative (test code = 418) HEXAGONAL [id number] 13:21:00 Test Item Value Reference Range Interpretation Comments HEXAGONAL PHOSPHOLIPID (BEAKER) Negative (test code = 1790) POCT-GLUCOSE [id number] 12:15:00 Test Item Value Reference Range Interpretation Comments POC-GLUCOSE METER 140 mg/dL 70-[address] [facility] 67 ([facility]) ([facility] = [facility]38[facility] [address] PROTEIN C [id number] 11:44:00 Test Item Value Reference Range Interpretation Comments PROTEIN C ACTIVITY (BEAKER) (test 155.0 % 70.0-130.0 H code = 582) Effective 12/20/2013: Reference Range Change-Adult onlyNew: 70.0-130.0 Previous: 70.0-140.0See Protein C Antigen.ANTITHROMBIN [id number] 11:43:00 Test Item Value Reference Range Interpretation Comments ANTITHROMBIN III ACTIVITY (BEAKER) 87.0 % 80.0-120.0 (test code = 711) Effective 12/20/2013: Reference Range Change-Adult onlyNew: 80.0-120.0 Previous: 90.0-128.0POCT-GLUCOSE [id number] 08:17:00 Test Item Value Reference Range Interpretation Comments POC-GLUCOSE METER 107 mg/dL 70-110 TESTED AT [place] [address] ([facility]) (test code = [facility] 1538) [address] BASIC METABOLIC [id number] 06:32:00 Test Item Value Reference Range Interpretation [...] PATIEN TS. CBC W/PLT COUNT & AUTO [id number] 05:56:00 Test Item Value Reference Range Interpretation [...] PERCENT (BEAKER) (test code = 2801) POCT-GLUCOSE [id number] 04:32:00 Test Item Value Reference Range Interpretation Comments POC-GLUCOSE METER 107 mg/dL 70-110 TESTED AT [place] [address] ([facility]) (test code = [address] [facility] 1538) [address] POCT-GLUCOSE [id number] 22:21:00 Test Item Value Reference Range Interpretation Comments POC-GLUCOSE METER 118 mg/dL 70-110 H TESTED AT [place] [address] ([facility]) (test code = [address] [facility] 1538) [address] POCT-GLUCOSE [id number] 21:22:00 Test Item Value Reference Range Interpretation Comments POC-GLUCOSE METER 52 mg/dL 70-110 L Notified Isabel Ro MD/TESTED AT ([facility]) (test code = [address] 15[address]) [facility] [address] MICROALBUMIN, RANDOM [id number] 17:57:00 Test Item Value Reference Range Interpretation Comments MICROALBUMIN URINE (BEAKER) (test > mg/dL code = 1794) Reference Range: No NormalsURINALYSIS W/ [id number] 17:36:00 Test Item Value Reference Range Interpretation [...] 516) SOURCE(BEAKER) (test code = Urine, Voided 6750) SCREEN, [id number] 17:36:00 Test Item Value Reference Range Interpretation Comments TEST URINE (BEAKER) (test Negative code = 583) CREATININE, RANDOM [id number] 17:35:00 Test Item Value Reference Range Interpretation Comments CREATININE URINE (BEAKER) (test 33.9 mg/dL code = 375) Reference Range: No NormalsSODIUM, RANDOM [id number] 17:35:00 Test Item Value Reference Range Interpretation Comments SODIUM URINE (BEAKER) (test code = 63 meq/L 243) Reference Range: No NormalsPOCT-GLUCOSE [id number] 17:34:00 Test Item Value Reference Range Interpretation Comments POC-GLUCOSE METER 118 mg/dL 70-110 H TESTED AT [place] [address] ([facility]) (test code = [facility] Isabel [facility] 1538) [address] POCT-GLUCOSE [id number] 13:28:00 Test Item Value Reference Range Interpretation Comments POC-GLUCOSE METER 71 mg/dL 70-110 TESTED AT [place] [address] ([facility]) (test code = [facility] Isabel [facility] [address] 1538) POCT-GLUCOSE [id number] 10:37:00 Test Item Value Reference Range Interpretation Comments POC-GLUCOSE METER 144 mg/dL 70-110 H TESTED AT [place] [address] ([facility]) (test code = [facility] 1538) [address] POCT-GLUCOSE [id number] 07:18:00 Test Item Value Reference Range Interpretation Comments POC-GLUCOSE METER 60 mg/dL 70-110 L TESTED AT [place] [address] ([facility]) (test code = [facility] [address] 1538) CBC W/PLT COUNT & AUTO [id number] 05:51:00 Test Item Value Reference Range Interpretation [...] (BEAKER) (test code = 2801) BASIC METABOLIC [id number] 05:51:00 Test Item Value Reference Range Interpretation [...] NOT APPLICABLE FOR DIALYSIS PATIEN TS. POCT-GLUCOSE [id number] 21:41:00 Test Item Value Reference Range Interpretation Comments POC-GLUCOSE METER 287 mg/dL 70-[address] [facility] [address] (BEAKER) (test code = [address] [place] 1538) [address] BASIC METABOLIC [id number] 12:35:00 Test Item Value Reference Range Interpretation [...] report . CBC W/PLT COUNT & AUTO [id number] 04:54:00 Test Item Value Reference Range Interpretation [...] 0-1 PERCENT (BEAKER) (test code = 2801) [id number] 20:17:00 Test Item Value Reference Range Interpretation Comments RPR SCREEN (BEAKER) (test code = Nonreactive Nonreactive 420) POCT-GLUCOSE [id number] 18:09:00 Test Item Value Reference Range Interpretation Comments POC-GLUCOSE METER 215 mg/dL 70-[address] [facility] [address] (BEAKER) (test code = [address] [place] 1538) [address] CBC W/PLT COUNT & AUTO [id number] 11:54:00 Test Item Value Reference Range Interpretation [...] (BEAKER) (test code = Normal 762) SEDIMENTATION [id number] 10:27:00 Test Item Value Reference Range Interpretation Comments SEDIMENTATION RATE, ERYTHROCYTE 79 mm/HR 0-20 H (BEAKER) (test code = 766) HEMOGLOBIN [id number] 09:33:00 Test Item Value Reference Range Interpretation Comments HEMOGLOBIN A1C (BEAKER) (test code = 9.8 % 4.3-6.1 H 368) VITAMIN [id number] 09:14:00 Test Item Value Reference Range Interpretation Comments VITAMIN B12 (BEAKER) (test code = 1790 pg/mL 213-816 H 774) TSH/FREE T4 IF [id number] 09:14:00 Test Item Value Reference Range Interpretation Comments THYROID STIMULATING HORMONE 1.08 uIU/mL 0.35-4.94 (BEAKER) (test code = 772) BASIC METABOLIC [id number] 08:52:00 Test Item Value Reference Range Interpretation [...] DATA TO CALCULA TE ESTIMATED GFR. FastingLIPID [id number] 08:51:00 Test Item Value Reference Range Interpretation [...] High 160-189 Very High >=190 FastingHCG, QUANTITATIVE, [id number] 01:43:00 Test Item Value Reference Range Interpretation Comments GONADOTROPIN, CHORIONIC (HCG) QUANT < mIU/mL 0-10 (BEAKER) (test code = 649) Non- Females: <10 mIU/mL Females: Gestation Age Reference Range(mIU/mL) 0.2-1 Week 5-50 1-2 Weeks 50-500 2-3 Weeks 100-5,000 3-4Weeks 500-10,000 4-5 Weeks 1,000-50,000 5-6 Weeks 10,000-100,000 6-8 Weeks 15,000-200,000 2-3 Months 10,000-100,000COMPREHENSIVE METABOLIC [id number] 21:57:00 Test Item Value Reference Range Interpretation [...] O CALCULATE ESTIM ATED GFR. Unit CollectPOCT-GLUCOSE [id number] 21:50:00 Test Item Value Reference Range Interpretation Comments POC-GLUCOSE METER 278 mg/dL 70-[address] [facility] 67 (NANCI) (test code = [address] [place] 2853) [address]
[2020-02-20 23:17] LABS: Absolute Lymphocytes (CBC) 0.7 K/uL (0.7-4.9); Basophils % 0.5 % (0-1.3); Hematocrit 32.9 % (36.0-45.0); Lymphocytes % 8.7 % (15.3-44.8); MPV 8.6 fL (7.6-11.3); RBC Red Blood Cell Count 3.48 M/uL (3.86-4.86)
[2020-02-20] MEDS ORDERED: FLEET ENEMA ADULT PR ONE (23:19)
[2020-02-20] MEDS ORDERED: MAGNESIUM CITRATE 300 ML BOT ONE (23:19)
[2020-02-20] MEDS ORDERED: ONDANSETRON 4 MG/2 ML VIAL ONE (23:19)
[2020-02-20] MEDS ORDERED: MORPHINE 2 MG/ML SYR ONE ×2 (23:19→23:47)
[2020-02-20 23:49] LABS: ALT/SGPT 14 U/L (12-78); AST/SGOT 11 U/L (15-37); Albumin 2.9 g/dL (3.4-5.0); Alkaline Phosphatase 172 U/L (45-117); BUN Blood Urea Nitrogen 27 mg/dL (7-18); Bicarbonate 27 mmol/L (21-32); Bilirubin Direct < 0.1 mg/dL (0-0.2); Bilirubin Total 0.3 mg/dL (0.2-1.0); Glucose Level 455 mg/dL (74-106); Lipase 157 U/L (73-393); Potassium 3.7 mmol/L (3.5-5.1); Protein, Total 7.1 g/dL (6.4-8.2); Sodium Level 137 mmol/L (136-145)
[2020-02-21] MEDS ORDERED: INSULIN -REGULAR HUMAN 50 UNIT/0.5 ML ML ONE (00:05)
[2020-02-21] MEDS ORDERED: MORPHINE 2 MG/ML SYR ONE ×2 (00:52→03:53)
[2020-02-21] MEDS ORDERED: ONDANSETRON 4 MG/2 ML VIAL ONE (00:56)
--- NOTE | 2020-02-21 03:40 | ER ---
Nurse's Notes [facility] Name: Archana Woo Age: 44 yrs Sex: Female : 1975 Arrival Date: 02/20/2020 Time: 22:34 Bed 5 Private MD: Diagnosis: Abdominal pain. Constipation Presentation: 02/19 22:39 Chief complaint: Patient states: Abdominal pain and constipation for a couple days, pt sg is crying out and verbalizes the pain is worse tonight than before at this time. Coronavirus screen: Proceed with normal triage. Ebola Screen: Patient negative for fever greater than or equal to 101.5 degrees Fahrenheit, and additional compatible Ebola Virus Disease symptoms Patient denies exposure to infectious person. Patient denies travel to an Ebola-affected area in the 21 days before illness onset. No symptoms or risks identified at this time. Initial Sepsis Screen: Does the patient meet any 2 criteria? No. Patient's initial sepsis screen is negative. Does the patient have a suspected source of infection? Yes: Acute abdominal pain. Risk Assessment: Do you want to hurt yourself or someone else? Patient reports no desire to harm self or others. Onset of symptoms was February 20, 2020. Care prior to arrival: None. 22:39 Method Of Arrival: Wheelchair sg 22:39 Acuity: TARUN 3 sg 22:39 Note pt reports was recently here and disimpacted by a ON 02/17/2020. sg Historical: - Allergies: 22:41 No Known Allergies; sg - PMHx: 22:41 BLIND; CVA; Depression; Diabetes - NIDDM; GERD; Hyperlipidemia; Hypertension; left arm sg paralysis; neuropathy; THYROID CANCER; TIA; - PSHx: 22:41 Cholecystectomy; ; sg - Immunization history:: Adult Immunizations not up to date. - Social history:: Smoking status: Patient denies any tobacco usage or history of. Screenin:48 Abuse screen: Denies threats or abuse. Denies injuries from another. Nutritional mg2 screening: No deficits noted. Tuberculosis screening: No symptoms or risk factors identified. Fall Risk Ambulatory Aid- None/Bed Rest/Nurse Assist (0 pts). Gait- Weak (10 pts.). Assessment: 22:47 General: Appears uncomfortable, Behavior is crying. Pain: Complains of pain in abdomen mg2 Pain does not radiate. Pain currently is 10 out of 10 on a pain scale. Quality of pain is described as crampy, Pain began gradually, Is intermittent. Neuro: Level of Consciousness is awake, alert, obeys commands, Oriented to person, place, time, situation. Cardiovascular: Capillary refill < 3 seconds Patient's skin is warm and dry. Respiratory: Airway is patent Respiratory effort is even, unlabored, Respiratory pattern is regular, symmetrical. GI: Bowel sounds Abd is soft Reports lower abdominal pain, upper abdominal pain, constipation. : No signs and/or symptoms were reported regarding the genitourinary system. EENT: No signs and/or symptoms were reported regarding the EENT system. Derm: Skin is intact, is healthy with good turgor, Skin is pink, warm \T\ dry. normal. Musculoskeletal: Circulation, motion, and sensation intact. Capillary refill < 3 seconds. 23:47 Reassessment: Patient appears in no apparent distress at this time. Patient and/or mg2 family updated on plan of care and expected duration. Pain level reassessed. Patient is alert, oriented x 3, equal unlabored respirations, skin warm/dry/pink. manually evacuated the stool. large amount of yellow/brown formed stool noted. 23:58 Reassessment: Patient appears in no apparent distress at this time. patient sent for mg2 xray abdomen. 02/20 01:06 Reassessment: Patient appears in no apparent distress at this time. Patient and/or mg2 family updated on plan of care and expected duration. Pain level reassessed. Patient is alert, oriented x 3, equal unlabored respirations, skin warm/dry/pink. 01:09 Reassessment: patient drink her oral contrast. instructor adjunct surgical technician informed. mg2 02:27 Reassessment: Patient appears in no apparent distress at this time. Patient and/or mg2 family updated on plan of care and expected duration. Pain level reassessed. Patient is alert, oriented x 3, equal unlabored respirations, skin warm/dry/pink. 03:30 Reassessment: Patient appears in no apparent distress at this time. Patient and/or mg2 family updated on plan of care and expected duration. Pain level reassessed. Patient is alert, oriented x 3, equal unlabored respirations, skin warm/dry/pink. Patient states feeling better. Vital Signs: 02/19 22:49 BP 157 / 66; Pulse 86; Resp 18; Temp 98.4; Pulse Ox 100% on R/A; Weight 59.87 kg; mg2 Height 5 ft. 4 in. (162.56 cm); Pain 10/10; 02/20 01:06 BP 132 / 76; Pulse 80; Resp 18; Pulse Ox 100% on R/A; mg2 02:27 BP 144 / 66; Pulse 81; Resp 18; Pulse Ox 100% on R/A; mg2 04:10 BP 133 / 56; Pulse 75; Resp 18; Temp 98; Pulse Ox 100% on R/A; mg2 02/19 22:49 Body Mass Index 22.66 (59.87 kg, 162.56 cm) mg2 ED Course: 02/19 22:34 Patient arrived in ED. es 22:40 Triage completed. sg 22:41 Arm band placed on. sg 22:44 Gael Quiñonez MD is Attending Physician. pkl 22:47 Kelechi Lugo RN is Primary Nurse. mg2 22:48 Patient has correct armband on for positive identification. Pulse ox on. NIBP on. Door mg2 closed. Warm blanket given. 22:54 Missed attempt(s): 20 gauge in right forearm. tt3 22:55 Inserted saline lock: 22 gauge in right forearm, using aseptic technique. Blood mg2 collected. 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 mg2 23:50 Notified ED physician of a critical lab result(s). glucose of 455. jd3 02/20 00:48 XRAY Abdomen Acute Series In Process Unspecified. EDMS 03:03 Abdomen In Process Unspecified. EDMS 03:39 Maldonado River MD is Referral Physician. pkl 04:11 IV discontinued, intact, bleeding controlled, No redness/swelling at site. Pressure mg2 dressing applied. Administered Medications: 02/19 23:08 Not Given (Duplicate Order): Magnesium Citrate Liquid 300 ml PO once mg2 23:18 Drug: morphine 2 mg Route: IVP; Site: right forearm; mg2 23:18 Drug: Zofran (Ondansetron) 4 mg Route: IVP; Site: right forearm; mg2 23:58 Follow up: Response: No adverse reaction mg2 23:18 Drug: Magnesium Citrate Liquid 300 ml Route: PO; mg2 23:58 Follow up: Response: No adverse reaction mg2 23:18 Drug: Fleet Enema 133 ml Route: PA; mg2 23:58 Follow up: Response: No adverse reaction mg2 23:47 Drug: morphine 2 mg Route: IVP; Site: right forearm; mg2 23:58 Follow up: Response: No adverse reaction; RASS: Alert and Calm (0) mg2 02/20 00:39 Drug: Insulin Regular Human 10 units {Co-Signature: lizbeth (Jaspal Lucero RN).} Route: mg2 IVP; Site: right forearm; 02:26 Follow up: Response: No adverse reaction; Blood sugar is lowered mg2 00:51 Drug: morphine 2 mg Route: IVP; Site: right forearm; mg2 02:27 Follow up: Response: No adverse reaction; RASS: Alert and Calm (0) mg2 00:51 Drug: Zofran (Ondansetron) 4 mg Route: IVP; Site: right forearm; mg2 02:27 Follow up: Response: No adverse reaction mg2 04:00 Drug: morphine 2 mg Route: IVP; Site: right forearm; mg2 04:00 Follow up: Response: No adverse reaction; Medication administered at discharge. mg2 Outcome: 03:39 Discharge ordered by MD. pkl 04:11 Discharged to home via wheelchair, with family. mg2 04:11 Condition: stable 04:11 Discharge instructions given to patient, family, Instructed on discharge instructions, follow up and referral plans. 04:11 Patient left the ED. mg2 Signatures: Dispatcher [employer] Rayo Guevara RN RN sg Lam, Pin, MD MD pkLucy Zheng Jonathon, RN RN jd3 Kelechi Lugo RN RN mg2 Erasto Asher tt3 Jaspal Lucero RN jd3 Corrections: (The following items were deleted from the chart) 02/19 23:10 22:39 Note pt reports was recently here and disimpacted by a Dr.Wadley hays 02/20 04:11 04:10 Reassessment: Patient appears in no apparent distress at this time. Patient mg2 and/or family updated on plan of care and expected duration. Pain level reassessed. Patient is alert, oriented x 3, equal unlabored respirations, skin warm/dry/pink. Patient states feeling better. mg2
--- NOTE | 2020-02-21 03:40 | EDPHYS ---
Physician Documentation [facility] Name: Archana Woo Age: 44 yrs Sex: Female : 1975 Arrival Date: 02/20/2020 Time: 22:34 Bed 5 Private MD: ED Physician Gael Quiñonez HPI: 02/19 23:10 This 44 yrs old Female presents to ER via Wheelchair with complaints of pkl Abdominal Pain, Constipation. 23:10 The patient presents with abdominal pain that is diffuse. Onset: The symptoms/episode pkl began/occurred 4 day(s) ago. Associated signs and symptoms: Pertinent positives: constipation. The patient has been recently seen at the [facility] Emergency Department, last week, for similar complaints labs were performed, X-rays were performed. Historical: - Allergies: 22:41 No Known Allergies; sg - PMHx: 22:41 BLIND; CVA; Depression; Diabetes - NIDDM; GERD; Hyperlipidemia; Hypertension; left arm sg paralysis; neuropathy; THYROID CANCER; TIA; - PSHx: :41 Cholecystectomy; ; sg - Immunization history:: Adult Immunizations not up to date. - Social history:: Smoking status: Patient denies any tobacco usage or history of. ROS: 23:10 Eyes: Negative for injury, pain, redness, and discharge, ENT: Negative for injury, pkl pain, and discharge, Neck: Negative for injury, pain, and swelling, Cardiovascular: Negative for chest pain, palpitations, and edema, Respiratory: Negative for shortness of breath, cough, wheezing, and pleuritic chest pain. 23:10 Abdomen/GI: Positive for abdominal pain, constipation, of the left upper quadrant, right lower quadrant and left lower quadrant. 23:10 Back: Negative for acute changes. 23:10 : Negative for urinary symptoms. 23:10 MS/extremity: Negative for acute changes. 23:10 Skin: Negative for rash. 23:10 Neuro: Negative for altered mental status. Exam: 23:10 Head/Face: Normocephalic, atraumatic. Eyes: Pupils equal round and reactive to light, pkl extra-ocular motions intact. Lids and lashes normal. Conjunctiva and sclera are non-icteric and not injected. Cornea within normal limits. Periorbital areas with no swelling, redness, or edema. ENT: Nares patent. No nasal discharge, no septal abnormalities noted. Tympanic membranes are normal and external auditory canals are clear. Oropharynx with no redness, swelling, or masses, exudates, or evidence of obstruction, uvula midline. Mucous membranes moist. Neck: Trachea midline, no thyromegaly or masses palpated, and no cervical lymphadenopathy. Supple, full range of motion without nuchal rigidity, or vertebral point tenderness. No Meningismus. Chest/axilla: Normal chest wall appearance and motion. Nontender with no deformity. No lesions are appreciated. Cardiovascular: Regular rate and rhythm with a normal S1 and S2. No gallops, murmurs, or rubs. Normal PMI, no JVD. No pulse deficits. Respiratory: Lungs have equal breath sounds bilaterally, clear to auscultation and percussion. No rales, rhonchi or wheezes noted. No increased work of breathing, no retractions or nasal flaring. 23:10 Abdomen/GI: Bowel sounds: normal, Palpation: soft, mild abdominal tenderness, in the right lower quadrant and left lower quadrant, Rectal exam: rectal tone normal, fecal impaction, that is severe, the exam is chaperoned by the nurse. 23:10 Back: Exam negative for acute changes. 23:10 Musculoskeletal/extremity: Exam is negative for acute changes. 23:10 Skin: Exam negative for rash. 23:10 Neuro: Orientation: is normal, Mentation: is normal, Cranial nerves: grossly normal, Motor: is normal. Vital Signs: 22:49 BP 157 / 66; Pulse 86; Resp 18; Temp 98.4; Pulse Ox 100% on R/A; Weight 59.87 kg; mg2 Height 5 ft. 4 in. (162.56 cm); Pain 05/26; 02/20 01:06 BP 132 / 76; Pulse 80; Resp 18; Pulse Ox 100% on R/A; mg2 02:27 BP 144 / 66; Pulse 81; Resp 18; Pulse Ox 100% on R/A; mg2 04:10 BP 133 / 56; Pulse 75; Resp 18; Temp 98; Pulse Ox 100% on R/A; mg2 02/19 22:49 Body Mass Index 22.66 (59.87 kg, 162.56 cm) mg2 MDM: 02/19 22:44 Patient medically screened. pkl 02/20 03:33 Data reviewed: vital signs, nurses notes, lab test result(s), radiologic studies, CT pkl scan, plain films. ED course: Patient feeling better. Discussed lab. and imaging studies with patient. Advised to follow up with [facility] ( Dr. River ) in 2 to 3 days for further evaluation. Patient understood instruction. 03:42 ED course: Patient feeling better after manual removal of impacted stools in the anus. pkl 04:09 ED course: On discharged, advised daughter to make appt. with Dr River in next 2 to 3 pkl days for further evaluations. Daughter understood instructions.. 02/19 22:50 Order name: Basic Metabolic Panel; Complete Time: 23:50 mg2 02/19 22:50 Order name: CBC with Diff; Complete Time: 23:50 mg2 02/19 22:50 Order name: Hepatic Function; Complete Time: 23:50 mg2 02/19 22:50 Order name: Lipase; Complete Time: 23:50 mg2 02/20 01:59 Order name: Glucose, Ancillary Testing; Complete Time: 02:03 EDMS 02/19 23:14 Order name: XRAY Abdomen Acute Series ar5 02/20 01:57 Order name: Abdomen EDMS 02/19 22:50 Order name: IV Saline Lock; Complete Time: 23:05 mg2 02/19 22:50 Order name: Labs collected and sent; Complete Time: 23:05 mg2 02/19 23:53 Order name: Accucheck; Complete Time: 02:26 pkl Administered Medications: 02/19 23:08 Not Given (Duplicate Order): Magnesium Citrate Liquid 300 ml PO once mg2 23:18 Drug: morphine 2 mg Route: IVP; Site: right forearm; mg2 23:18 Drug: Zofran (Ondansetron) 4 mg Route: IVP; Site: right forearm; mg2 23:58 Follow up: Response: No adverse reaction mg2 23:18 Drug: Magnesium Citrate Liquid 300 ml Route: PO; mg2 23:58 Follow up: Response: No adverse reaction mg2 23:18 Drug: Fleet Enema 133 ml Route: PA; mg2 23:58 Follow up: Response: No adverse reaction mg2 23:47 Drug: morphine 2 mg Route: IVP; Site: right forearm; mg2 23:58 Follow up: Response: No adverse reaction; RASS: Alert and Calm (0) mg2 02/20 00:39 Drug: Insulin Regular Human 10 units {Co-Signature: [id number] (Jaspal Lucero RN).} Route: mg2 IVP; Site: right forearm; 02:26 Follow up: Response: No adverse reaction; Blood sugar is lowered mg2 00:51 Drug: morphine 2 mg Route: IVP; Site: right forearm; mg2 02:27 Follow up: Response: No adverse reaction; RASS: Alert and Calm (0) mg2 00:51 Drug: Zofran (Ondansetron) 4 mg Route: IVP; Site: right forearm; mg2 02:27 Follow up: Response: No adverse reaction mg2 04:00 Drug: morphine 2 mg Route: IVP; Site: right forearm; mg2 04:00 Follow up: Response: No adverse reaction; Medication administered at discharge. mg2 Disposition: 02/21/20 03:39 Discharged to Home. Impression: Abdominal pain. Constipation. - Condition is Stable. - Medication Reconciliation Form, Thank You Letter, Antibiotic Education, Prescription Opioid Use form. - Follow up: Maldonado River MD; When: 2 - 3 days; Reason: Re-evaluation by your physician. - Problem is new. - Symptoms have improved. Signatures: Dispatcher [employer] EDMS Rayo Noriega RN RN sg Gael Quiñonez MD MD pkl Kelechi Lugo RN RN mg2 Jaspal Lucero RN jd3 Corrections: (The following items were deleted from the chart) 02/19 23:12 23:08 Abdomen Acute Series+RAD.RAD.BRZ ordered. EDMS EDMS 23:17 23:08 Abdomen Acute Series+RAD.RAD.BRZ ordered. EDMS EDMS 02/20 01:57 00:41 Abdomen Pelvis W Con+CT.RAD.BRZ ordered. EDMS EDMS 04:11 03:39 02/21/2020 03:39 Discharged to Home. Impression: Abdominal pain. Constipation. mg2 Condition is Stable. Forms are Medication Reconciliation Form, Thank You Letter, Antibiotic Education, Prescription Opioid Use. Follow up: Maldonado River; When: 2 - 3 days; Reason: Re-evaluation by your physician. Problem is new. Symptoms have improved. pkl
[2020-02-21 04:22] VITALS: O2SAT 100
[2020-02-21 04:28] VITALS: BP 133/56; TEMP 98
--- NOTE | 2020-02-21 07:36 | RAD REPORT ---
EXAM DESCRIPTION: RAD - Abdomen Acute Series - 02/21/2020 12:47 am CLINICAL HISTORY: Abd pain;Constipation COMPARISON: Abdomen 1 View (KUB) dated 02/17/2020; Chest Single View dated 02/08/2020; Abdomen Pelvis Wo Contrast dated 02/21/2020 FINDINGS: Single-view chest, KUB, upright KUB and right and left lateral decubitus images obtained. Lung volumes are low but clear. No failure or volume overload. Heart size and pulmonary vasculature a re normal. No pleural effusion, pneumothorax or other acute cardiopulmonary process seen. Bowel gas pattern is nonspecific. Moderate stool volume present in the colon. Air is scattered in non dilated large and small bowel loops. Sigmoid colon is tortuous and redundant. No bowel obstruction se en. There is no free air or pneumatosis. There is questionable air within the urinary bladder. This m ay be due to recent catheterization. Lobulated pelvic calcification pattern is almost certainly due to multiple calcified fibroids. No other suspicious for significant findings. IMPRESSION: No bowel obstruction, free air or surgically emergent finding identifiable. Bowel gas pattern is prominent but nonspecific. Infectious/inflammatory process of the bowel is still possible.
--- NOTE | 2020-02-21 12:49 | RAD REPORT ---
EXAM DESCRIPTION: CT - Abdomen Pelvis Wo Contrast - 02/21/2020 3:43 am CLINICAL HISTORY: 44-year-old female with abdominal pain and constipation TECHNIQUE: Axial CT imaging of the abdomen and pelvis was performed with oral contrast only. Sagit beth and coronal reconstructed images were then performed. The CT study is performed according to ALAR A (as low as reasonably achievable) or ALARA/IMAGE GENTLY, with automatic adjustment of mA and/or kV according to patient size. Performed on: 02/21/2020 at 1:57 AM COMPARISON: Prior CT abdomen and pelvis performed on 07/29/2019. FINDINGS: Lung bases: The lung bases are clear. There is minimal bibasilar atelectasis and/or fibros is. Liver: The liver is normal in size and configuration. No focal hepatic abnormalities are appreciated on this unenhanced scan. Liver attenuation is within normal limits. Spleen: The spleen is normal is size, configuration and attenuation. No focal splenic abnormalities a re appreciated on this unenhanced scan. Gallbladder and bile duct: The gallbladder is surgically absent. There is mild dilatation of the co mmon bile duct, likely physiologic in nature following a cholecystectomy. Pancreas: The pancreas is grossly normal in size and configuration. Adrenal Glands: The adrenal glands are normal in size and configuration. Kidneys: The kidneys are normal in size and configuration. There is no evidence of hydronephrosis. Th ere is no evidence of nephrolithiasis. No focal renal abnormalities are identified. There are extensi ve renal vascular calcifications. Stomach: The stomach is grossly normal. There is no definite hiatal hernia. Bowel: The bowel gas pattern is non specific and non obstructive. There is moderate fecal residue sca ttered throughout the colon. There is questionable rectal wall thickening with mild infiltration of t he perirectal fat. Findings are slightly more prominent on the current examination than on the prior study. Appendix: The appendix is grossly normal. Free air: There is no evidence of free air. Free fluid: There is no evidence of free fluid. Vasculature: The aorta is normal in caliber and contour. The inferior vena cava is grossly unremarkab le. There are mild to moderate atherosclerotic calcifications along the abdominal aorta and major bra [facility] vessels. Lymphadenopathy: No pathologic lymphadenopathy is identified. Bladder: The bladder is well distended and smooth in contour. There is air in the bladder which may b e iatrogenic in nature. A gas forming infection is not entirely excluded. Reproductive: The uterus is enlarged and bulky in contour and contains numerous calcifications consis tent with partially calcified uterine leiomyomas. The appearance of the uterus is similar when compar ed to the prior study. Bones: No acute osseous abnormalities are identified. There are pars defects bilaterally at L5. Soft tissues: No focal soft tissue abnormalities are identified. IMPRESSION: 1. Questionable rectal wall thickening with mild infiltration of the perirectal fat. The se findings are slightly more prominent on the current examination than on the prior study. Findings could be related to an underlying inflammatory or neoplastic process. 2. Moderate fecal residue scattered throughout the colon. 3. Air in the bladder which may be iatrogenic in nature. A gas forming infection is not entirely excl uded. 4. Bulky, enlarged, partially calcified myomatous uterus. 5. Bilateral pars defects at L5 without evidence of spondylolisthesis. 6. Remote cholecystectomy with likely physiologic dilatation of the common bile duct. 7. Extensive renal vascular calcifications. Electronically signed by: Angela Godinez DO 02/21/2020 3:25 AM CDT Due to temporary technical issues with the PACS/Fluency reporting system, reports are being signed by the in house radiologist without review as a courtesy to ensure prompt reporting. The interpreting r adiologist is fully responsible for the content of the report.
== END 2020-02-21 04:11 | disposition home or self-care (01) ==
LOC: ER 22:30
DX: K59.00 Constipation, unspecified (principal); I10 Essential (primary) hypertension; Z85.850 Personal history of malignant neoplasm of thyroid
CPT/HCPCS: 85025; 80048; 36415; 82947; 80076; 83690; 74176; 74022; 96375; 96374; 99284; J2270 ×4; J2405 ×2

== ENCOUNTER 2020-02-29 11:34 | Emergency (ER) | payer OTHER ==
--- NOTE | 2020-02-29 12:10 | RAD REPORT ---
EXAM DESCRIPTION: CT - Head Brain Wo Cont - 02/29/2020 11:59 am CLINICAL HISTORY: Numbness COMPARISON: January 2020 TECHNIQUE: Computed axial tomography of the head was obtained. IV contrast was not requested. All CT scans are performed using dose optimization technique as appropriate and may include automated exposure control or mA/KV adjustment according to patient size. FINDINGS: An intracranial bleed is not seen . The ventricles are normal in caliber. No extra-axial fluid collection is noted. Old lacunar infarct right thalamus. Mild to moderate low-density areas within periventricular, deep and subcortical white matter likely i schemic changes secondary to small vessel disease Fluid within the sinuses/ mastoids is not seen. IMPRESSION: No acute intracranial abnormality is seen. If patient's symptoms persist MRI of the bra in would be recommended.
[2020-02-29 12:23] LABS: Absolute Lymphocytes (CBC) 1.2 K/uL (0.7-4.9); Basophils % 0.6 % (0-1.3); Hematocrit 39.2 % (36.0-45.0); Lymphocytes % 9.1 % (15.3-44.8)
--- OUTSIDE RECORDS SUMMARY | 2020-02-29 12:25 | XMS REPORT | Clinical Summary ---
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 ([facility]); Other specified hypothyroidism; Acute metabolic encephalopathy; DELMA (acute kidn ey injury) ([facility]) 07/15/2019 Travel 07/15/2019 Documentation Internal Medicine Negar Douglas MD after 02/28/2019 Family History Medical History Relation Name Comments [...] Taken Blood Pressure 163/76 07/18/2019 11:00 AM DRILL DOCTOR Pulse 85 07/18/2019 11:00 AM DRILL DOCTOR Temperature 36.5 C (97.7 F) 07/18/2019 11:00 AM DRILL DOCTOR Respiratory Rate 18 07/18/2019 11:00 AM DRILL DOCTOR Oxygen Saturation 98% 07/18/2019 11:00 AM DRILL DOCTOR Inhaled Oxygen Concentration - - Weight 98.8 kg (217 lb 13 oz) 07/16/2019 5:08 PM DRILL DOCTOR Height 162.6 cm (5' 4") 07/15/2019 9:22 PM DRILL DOCTOR Body Mass Index 37.39 07/16/2019 5:08 PM DRILL DOCTOR Plan of Treatment Health Maintenance Due Date Last Done Comments PNEUMOCOCCAL VACCINE 2-64 YEARS AT RISK (1 1980 of 3 - PCV13) DIABETIC EYE EXAM 1984 DIABETIC FOOT EXAM 1984 CERVICAL CANCER SCREENING PAP ONLY (Age 0310/18/1995 21-65) MEDICARE ANNUAL WELLNESS (YEAR 2 or FIRST 08/18/2017 YEAR if no IPPE) URINE MICROALBUMIN 03/17/2018 03/17/2017 HEMOGLOBIN A1C 10/15/2019 07/16/2019, 03/15/2017 INFLUENZA VACCINE (#1) 2020 07/23/2013 Procedures Procedure Name Priority Date/Time Associated Comments Diagnosis REPORT OF PROCEDURE - 07/21/2019 8:51 ENDOSCOPY SCAN AM DRILL DOCTOR RHYTHM STRIP - SCAN 07/21/2019 8:50 AM DRILL DOCTOR XR CHEST 1 VIEW STAT 07/18/2019 11:09 Results for this PORTABLE/BEDSIDE AM DRILL DOCTOR procedure a re in the results section. POCT-GLUCOSE METER Routine 07/18/2019 8:22 Resul ts for this AM DRILL DOCTOR procedure are i n the results section. CBC W/PLT COUNT & AUTO Routine 07/18/2019 4:37 R esults for this DIFFERENTIAL AM DRILL DOCTOR procedure are i n the results section. CBC W/PLT COUNT & AUTO Routine 07/18/2019 4:37 R esults for this DIFFERENTIAL AM DRILL DOCTOR procedure are i n the results section. PROTHROMBIN TIME/INR Routine 07/18/2019 4:37 Res ults for this AM DRILL DOCTOR procedure are i n the results section. PHOSPHORUS Routine 07/18/2019 4:37 Results for this AM DRILL DOCTOR procedure are i n the results section. MAGNESIUM Routine 07/18/2019 4:37 Results for this AM DRILL DOCTOR procedure are i n the results section. BASIC METABOLIC PANEL Routine 07/18/2019 4:37 Re sults for this (7) AM DRILL DOCTOR procedure are i n the results section. POCT-GLUCOSE METER Routine 07/17/2019 8:56 Resul ts for this PM DRILL DOCTOR procedure are i n the results section. POCT-GLUCOSE METER Routine 07/17/2019 5:07 Resul ts for this PM DRILL DOCTOR procedure are i n the results section. POCT-GLUCOSE METER Routine 07/17/2019 12:28 Resul ts for this PM DRILL DOCTOR procedure are i n the results section. SCREEN, URINE Routine 07/17/2019 11:36 Results for this AM DRILL DOCTOR procedure are i n the results section. POCT-GLUCOSE METER Routine 07/17/2019 7:18 Resul ts for this AM DRILL DOCTOR procedure are i n the results section. CBC W/PLT COUNT & AUTO Routine 07/17/2019 5:55 R esults for this DIFFERENTIAL AM DRILL DOCTOR procedure are i n the results section. CBC W/PLT COUNT & AUTO Routine 07/17/2019 5:55 R esults for this DIFFERENTIAL AM DRILL DOCTOR procedure are i n the results section. PROTHROMBIN TIME/INR Routine 07/17/2019 5:55 Res ults for this AM DRILL DOCTOR procedure are i n the results section. PHOSPHORUS Routine 07/17/2019 5:55 Results for this AM DRILL DOCTOR procedure are i n the results section. MAGNESIUM Routine 07/17/2019 5:55 Results for this AM DRILL DOCTOR procedure are i n the results section. BASIC METABOLIC PANEL Routine 07/17/2019 5:55 Re sults for this (7) AM DRILL DOCTOR procedure are i n the results section. MR BRAIN WITHOUT IV Routine 07/17/2019 12:54 Resu lts for this CONTRAST AM DRILL DOCTOR procedure are i n the results section. MRA NECK WITHOUT IV Routine 07/17/2019 12:54 Resu lts for this CONTRAST AM DRILL DOCTOR procedure are i n the results section. MRA HEAD WITHOUT IV Routine 07/17/2019 12:54 Resu lts for this CONTRAST AM DRILL DOCTOR procedure are i n the results section. ECHOCARDIOGRAM REPORT - 07/16/2019 9:20 SCAN PM DRILL DOCTOR POCT-GLUCOSE METER Routine 07/16/2019 9:03 Resul ts for this PM DRILL DOCTOR procedure are i n the results section. HEMODIALYSIS INPATIENT Routine 07/16/2019 5:23 R esults for this PM DRILL DOCTOR procedure are i n the results section. POCT-GLUCOSE METER Routine 07/16/2019 5:21 Resul ts for this PM DRILL DOCTOR procedure are i n the results section. HEPATITIS B SURFACE Routine 07/16/2019 1:41 Resu lts for this ANTIGEN PM DRILL DOCTOR procedure are i n the results section. POCT-GLUCOSE METER Routine 07/16/2019 1:01 Resul ts for this PM DRILL DOCTOR procedure are i n the results section. POCT-GLUCOSE METER Routine 07/16/2019 12:03 Resul ts for this PM DRILL DOCTOR procedure are i n the results section. 2D ECHO W/ DOPPLER Routine 07/16/2019 11:13 Resul ts for this (CW/PW/COLOR) AM DRILL DOCTOR procedure are in the results section. BASIC METABOLIC PANEL Routine 07/16/2019 8:40 Re sults for this (7) AM DRILL DOCTOR procedure are i n the results section. POCT-GLUCOSE METER Routine 07/16/2019 8:05 Resul ts for this AM DRILL DOCTOR procedure are i n the results section. ECG 12-LEAD STAT 07/16/2019 7:43 Results for this AM DRILL DOCTOR procedure are i n the results section. POCT-GLUCOSE METER Routine 07/16/2019 7:30 Resul ts for this AM DRILL DOCTOR procedure are i n the results section. XR CHEST 1 VIEW Routine 07/16/2019 7:04 Results for this PORTABLE/BEDSIDE AM DRILL DOCTOR procedure a re in the results section. POCT-GLUCOSE METER Routine 07/16/2019 5:21 Resul ts for this AM DRILL DOCTOR procedure are i n the results section. BASIC METABOLIC PANEL STAT 07/16/2019 5:14 Re sults for this (7) AM DRILL DOCTOR procedure are i n the results section. HEMOGLOBIN A1C Routine 07/16/2019 3:50 Results f or this AM DRILL DOCTOR procedure are i n the results section. CBC W/PLT COUNT & AUTO Routine 07/16/2019 3:49 R esults for this DIFFERENTIAL AM DRILL DOCTOR procedure are i n the results section. CBC W/PLT COUNT & AUTO Routine 07/16/2019 3:49 R esults for this DIFFERENTIAL AM DRILL DOCTOR procedure are i n the results section. LIPID PANEL Routine 07/16/2019 3:49 Results for this AM DRILL DOCTOR procedure are i n the results section. PHOSPHORUS Routine 07/16/2019 3:49 Results for this AM DRILL DOCTOR procedure are i n the results section. MAGNESIUM Routine 07/16/2019 3:49 Results for this AM DRILL DOCTOR procedure are i n the results section. HEPATIC FUNCTION PANEL Routine 07/16/2019 3:49 R esults for this AM DRILL DOCTOR procedure are i n the results section. BASIC METABOLIC PANEL Routine 07/16/2019 3:49 Re sults for this (7) AM DRILL DOCTOR procedure are i n the results section. HIV-1 ANTIGEN WITH Routine 07/16/2019 3:48 Resul ts for this HIV-1/2 ANTIBODY AM DRILL DOCTOR procedure a re in the results section. RPR Routine 07/16/2019 3:48 Results for this AM DRILL DOCTOR procedure are i n the results section. VITAMIN B12 AND FOLATE Routine 07/16/2019 3:48 R esults for this AM DRILL DOCTOR procedure are i n the results section. TSH/FREE T4 IF Routine 07/16/2019 3:48 Results f or this INDICATED AM DRILL DOCTOR procedure are i n the results section. PROTHROMBIN TIME/INR Routine 07/16/2019 3:48 Res ults for this AM DRILL DOCTOR procedure are i n the results section. POCT-GLUCOSE METER Routine 07/16/2019 3:34 Resul ts for this AM DRILL DOCTOR procedure are i n the results section. after 02/28/2019 Results EKG-SCANNED (07/21/2019 8:51 AM DRILL DOCTOR) Narrative Performed At This result has an attachment that is no t available. RHYTHM STRIP - SCAN (07/21/2019 8:50 AM DRILL DOCTOR) Narrative Performed At This result has an attachment that is no t available. XR chest 1 view portable / bedside (07/18/2019 11:09 AM DRILL DOCTOR)Only the most recent of2 resultswithin the time period is included. Specimen Narrative Performed At FINAL REPORT [facility] RAD, CHEST, 1 VIEW, NON DEPT INDICATION: r/o pneumonia COMPARISON: July 16, 2019 FINDINGS: Portable frontal view of the c hest. IMPRESSION: Support Lines: Stable left IJ dual-lumen central venous catheter. Lungs and pleura: Lungs are clear. No ef fusion. No pneumothorax. Heart and mediastinum: Stable contours. Additional findings: None. Signed: JR Mccollum Robert MD Report Verified Date/Time:07/18/2019 11:27:35 Reading Location: [facility] [place] [facility] Reading Room Procedure Note Interface, External Ris In - 07/18/2019 11:29 AM DRILL DOCTOR FINAL REPORT RAD, CHEST, 1 VIEW, NON [...] Verified Date/Time: 07/18/2019 1 1:27:35 Reading [facility] Reading Room Performing Organization Address City/State/Zipcode Phone Number [facility] POC-Glucose meter (07/18/2019 8:22 AM DRILL DOCTOR)Only the most recent of13 results within the time period is included. POC-Glucose Meter 126 (H)Comment: : TESTED 70 - 110 mg/dL [facility]PITALDocRunWASHINGTON [facility] AT [facility] [address] [facility] [place] [address]: Temporary Help Agency Referral Clerk/Pain Management Specialist ID = [id number] for Baldomero Kuo Specimen Blood Performing Organization Address City/State/Zipcode Phone Number [facility] [address] [place] [address] CENTER CBC with platelet count + automated diff (07/18/2019 4:37 AM DRILL DOCTOR)Only the most recent of3 resultswithin the time period is included. WBC 13.0 (H) 3.5 - 10.5 K/L [facility] RBC 3.80 (L) 3.93 - 5.22 M/L [facility] Hemoglobin 11.3 11.2 - 15.7 GM/DL [facility] Hematocrit 35.2 34.1 - 44.9 % [facility] MCV 92.6 79.4 - 94.8 fL [facility] MCH 29.7 25.6 - 32.2 pg [facility] MCHC 32.1 (L) 32.2 - 35.5 GM/DL [facility] RDW 13.6 11.7 - 14.4 % [facility] Platelets 233 150 - 450 K/CU MM [facility] MPV 9.5 9.4 - 12.3 fL [facility] nRBC 0 0 - 0 /100 WBC [facility] % Neutros 70 % [facility] % Lymphs 20 % [facility] % Monos 7 % [facility] % Eos 2 % [facility] % Baso 1 % [facility] # Neutros 9.09 (H) 1.56 - 6.13 K/L [facility] # Lymphs 2.65 1.18 - 3.74 K/L [facility] # Monos 0.93 (H) 0.24 - 0.36 K/L [facility] # Eos 0.24 0.04 - 0.36 K/L [facility] # Baso 0.07 0.01 - 0.08 K/L [facility] Immature Granulocytes-Relative 0 0 - 1 % C [facility] Specimen Blood Performing Organization Address City/[facility] Treatment Centercode Phone Number [address] [address] CENTER Prothrombin time/INR (07/18/2019 4:37 AM DRILL DOCTOR)Only the most recent of3 results within the time period is included. Protime 12.2 11.9 - 14.2 seconds [facility] INR 1.0 <=5.9 [facility] Specimen Blood Narrative Performed At Effective 01/12/2019: PT Reference Range [facility] Change New: 11.9-14.2Previous: 11.7-14.7 RECOMMENDED COUMADIN/WARFARIN INR THERAPY RANGES STANDARD DOSE: 2.0-3.0Includes: PROPHYLAXIS for venous thrombosis, systemic embolization; TREATMENT for venous thrombosis and/or pulmonary embolus. HIGH RISK: Target INR is 2.5-3.5 for patients wiht mechanical heart valves. Performing Organization Address City/[facility] Treatment Centercode Phone Number [address] [address] CENTER Phosphorus (07/18/2019 4:37 AM DRILL DOCTOR)Only the most recent of3 resultswithin the time period is included. Phosphorus 4.6 2.3 - 4.7 mg/dL [facility] Specimen Blood Performing Organization Address City/[facility]/Zipcode Phone Number [address] [phone] CENTER Magnesium (07/18/2019 4:37 AM DRILL DOCTOR)Only the most recent of3 resultswithin the time period is included. Magnesium 2.0 1.6 - 2.6 mg/dL [facility] Specimen Blood Performing Organization Address City/[facility]/Zipcode Phone Number [address] [phone] [place] Basic metabolic panel (07/18/2019 4:37 AM DRILL DOCTOR)Only the most recent of5 results within the time period is included. Sodium 134 (L) 136 - 145 meq/L [facility] Potassium 5.0 3.5 - 5.1 meq/L [facility] Chloride 103 98 - 107 meq/L [facility] CO2 25 22 - 29 meq/L [facility] BUN 28 (H) 7 - 21 mg/dL [facility] Creatinine 5.40 (H) 0.57 - 1.25 mg/dL [facility] Glucose 146 (H) 70 - 105 mg/dL [facility] Calcium 8.8 8.4 - 10.2 mg/dL [facility] EGFR 9Comment: ESTIMATED GFR IS mL/min/1.73 sq m [facility] NOT ACCURATE CREATININE [facility] CLEARANCE IN PREDICTING GLOMERULAR FILTRATION RATE. ESTIMATED GFR IS NOT APPLICABLE FOR DIALYSIS PATIENTS. Specimen Blood Performing Organization Address [facility] Centercode Phone Number [address] [address] [place] Screen, urine (07/17/2019 11:36 AM DRILL DOCTOR) Preg Test, Ur Negative [facility] Specimen Urine Performing Organization Address [facility]/Zipcode Phone Number [place] [phone] [place] [address] [place] MR brain without IV contrast (07/17/2019 12:54 AM DRILL DOCTOR) Specimen Narrative Performed At FINAL REPORT GE RIS MR, BRAIN, WITHOUT CONTRAST, MR, MRA, NE [...] External Ris In - 07/17/2019 4:57 AM DRILL DOCTOR FINAL REPORT MR, BRAIN, WITHOUT CONTRAST, MR, [...] 3:28:33 Performing Organization Address City/State/Zipcode Phone Number [facility] MR MRA neck without contrast (07/17/2019 12:54 AM DRILL DOCTOR) Specimen Narrative Performed At FINAL REPORT [facility] MR, BRAIN, WITHOUT CONTRAST, MR, MRA, NE [...] External Ris In - 07/17/2019 4:57 AM DRILL DOCTOR FINAL REPORT MR, BRAIN, WITHOUT CONTRAST, MR, [...] 3:28:33 Performing Organization Address City/State/Zipcode Phone Number [facility] MR MRA head without contrast (07/17/2019 12:54 AM DRILL DOCTOR) Specimen Narrative Performed At FINAL REPORT ERNESTINA MURRY MR, BRAIN, WITHOUT CONTRAST, MR, MRA, NE [...] External Ris In - 07/17/2019 4:57 AM DRILL DOCTOR FINAL REPORT MR, BRAIN, WITHOUT CONTRAST, MR, [...] 3:28:33 Performing Organization Address City/State/Zipcode Phone Number [facility] ECHOCARDIOGRAM REPORT - SCAN (07/16/2019 9:20 PM DRILL DOCTOR) Narrative Performed At This result has an attachment that is no t available. HEMODIALYSIS INPATIENT (07/16/2019 5:23 PM DRILL DOCTOR) Narrative Performed At Jeff Mcduffie RN 06/195:24 [...] Hepatitis B surface antigen (07/16/2019 1:41 PM DRILL DOCTOR) HBsAg Screen Nonreactive Nonreactive [facility] Specimen Blood Performing Organization Address City/State/Zipcode Phone Number [facility] [address] [place] [address] CENTER 2D Echo W/Doppler(CW/PW/Color) (07/16/2019 11:13 AM DRILL DOCTOR) Ejection Fraction [facility] ECHO HEAR TLAB [facility] Specimen Narrative Performed At Transthoracic Echocardiography Report (T TE) [facility] CK[facility]ON [facility] Demographics Patient Peyman Burton of Study07/16/2019 Gender Female Visit [id number] Race Unknown [id number] Number Date of 1975 [facility] Physician Age 43 year(s) SonographerDaja Arthur, [facility] Showroom Sales Assistant Yanna McdonaldInterpreting Marcella Yanez MD [place] Physician Procedure Type of Study TTE procedure:2DECHO [...] External Ris In - 07/16/2019 2:11 PM DRILL DOCTOR Transthoracic Echocardiography Report (TTE) Demographics Patient Name ARCHANA WOO Date of St udy 07/16/2019 Gender Female Visit Number [id number] Race Unknown Room [facility] r [id number] Number Date of 1975 Referring Arvin Ann Physician Age 43 year(s) Sonographe r Daja Arthur, [facility] Showroom Sales Assistant Yanna Blanchardi MD Oscar Dupont Physician Procedure [...] City/State/Zipcode Phone Number [facility] ECHO HEARTLAB MKCKESSON CPACS ECG 12 lead (07/16/2019 7:43 AM DRILL DOCTOR) Specimen Narrative Performed At Ventricular Rate 87 BPM [facility] Atrial Rate 87 BPM P-R Interval 136 ms QRS Duration 72 ms Q-T Interval 380 ms QTC Calculation(Bazett) 457 ms P Afton 68 degrees R Afton 17 degrees T Afton 65 degrees Normal sinus rhythm Normal ECG When compared with ECG of 19-MAR-2017 15 :16, QT has shortened Confirmed by MD BROCK, LAKSHMI ([id number]) on 07/18/2019 7:35:43 AM Procedure Note Interface, External Ris In - 07/18/2019 7:35 AM DRILL DOCTOR Ventricular Rate 87 BPM Atrial Rate 87 BPM P-R Interval 136 ms QRS Duration 72 ms Q-T Interval 380 ms QTC Calculation(Bazett) 457 ms P Afton 68 degrees R Afton 17 degrees T Afton 65 degrees Normal sinus rhythm Normal ECG When compared with ECG of 19-MAR-2017 15 :16, QT has shortened Confirmed by MD GUTIÉRREZ YOCHAI ([id number]) on 07/18/2019 7:35:43 AM Performing Organization Address City/[facility] Centercode Phone Number GE MUSE Hemoglobin A1c (07/16/2019 3:50 AM DRILL DOCTOR) Hemoglobin A1C 9.5 (H) 4.3 - 6.1 % [facility] Specimen Blood Performing Organization Address City/[facility] Centercond Phone Number [address] [address] [place] Hepatic function panel (07/16/2019 3:49 AM DRILL DOCTOR) Protein, Total 6.3 6.0 - 8.3 gm/dL [facility] Albumin 3.0 (L) 3.5 - 5.0 g/dL [facility] Total Bilirubin 0.4 0.2 - 1.2 mg/dL [facility] Bilirubin, Direct 0.2 0.1 - 0.5 mg/dL [facility] Alkaline Phosphatase 182 (H) 40 - 150 U/L [facility] AST 63 (H) 5 - 34 U/L [facility] ALT 99 (H) 6 - 55 U/L [facility] Specimen Blood Performing Organization Address City/[facility] Centercode Phone Number [address] [address] CENTER Lipid panel (07/16/2019 3:49 AM DRILL DOCTOR) Triglycerides 100 mg/dL [facility] Cholesterol 177 mg/dL [facility] HDL 48 mg/dL [facility] LDL Calculated 109 mg/dL [facility] Specimen Blood Narrative Performed At Triglyceride Reference Range: [facility] Low Risk <150 [id number] High Risk 200-499 Very High Risk>=500 Cholesterol Reference Range: Low Risk <200 [id number] High Risk>240 HDL Cholesterol Reference Range: Low Risk >=60 High Risk <40 LDL Cholesterol Reference Range: Optimal<100 Near [id number] [id number] [id number] Very High >=190 Performing Organization Address [facility] Centercond Phone Number [address] [address] [place] Vitamin B12 and Folate (07/16/2019 3:48 AM DRILL DOCTOR) Vitamin B12 525 213 - 816 pg/mL [facility] Folate 6.5 (L) >=7.0 ng/mL [facility] Specimen Blood Performing Organization Address [facility] Centercond Phone Number [address] [address] CENTER TSH/Free T4 If Indicated (07/16/2019 3:48 AM DRILL DOCTOR) TSH 0.87 0.35 - 4.94 uIU/mL [facility] Specimen Blood Performing Organization Address [facility] Centercode Phone Number [address] [address] CENTER HIV-1 Antigen with HIV-1/2 Antibody (07/16/2019 3:48 AM DRILL DOCTOR) HIV-1 Antigen with HIV 1&2 Nonreactive Nonreactive [facility] CENTER Specimen Blood Performing Organization Address City/[facility]/Zipcode Phone Number [facility] [address] [place], [place] [phone] CENTER RPR (07/16/2019 3:48 AM DRILL DOCTOR) RPR Nonreactive Nonreactive [facility] Specimen Blood Performing Organization Address City/[facility]/Zipcode Phone Number [facility] [address] [place] [address] CENTER after 02/28/2019 Insurance Payer Benefit Plan / Subscriber ID Type Phone Address Group [facility] MEDICARE xxxxxxxxx MEDICARE MGD CARE HMO MEDICAID - [facility]ID [facility] COMM STAR xxxxxxxxx Medicaid Contracted MGD CARE PLAN Advance Directives For more information, please contact:[address] [phone] Code Status Date Activated Date Inactivated Comments Full Code 07/16/2019 12:46 AM 07/18/2019 4:56 PM This code status was determined by: Patient Full Code 03/14/2017 8:30 PM 03/20/2017 12:11 PM This code status was determined by: Patient
[2020-02-29 12:27] LABS: Protime INR 0.91
--- OUTSIDE RECORDS SUMMARY | 2020-02-29 12:28 | XMS REPORT | Continuity of Care Document ---
:1975 Author Organization [facility] t Address [address] [place] [address] Care Team Providers Name Role Phone Stella REYNOSO Attending Clinician Seth REYNOSO Attending Clinician Graham Schultz MD Attending Clinician Raphael REYNOSO Attending Clinician STELLA Attending Clinician Unavailable LYN EDWARDS Attending Clinician Unavailable Graham SCHULTZ Admitting Clinician Unavailable LYN EDWARDS Admitting Clinician Unavailable Payers Payer Name Policy Policy Number Effective Expiration Source Type Date Date [facility] - xxxxxxxxx [facility] MEDICARE MGD CAREUNITED L ukes - MEDICARE HMOxxxxxxxxx [facility] MEDICAID - MEDICAID MGD xxxxxxxxx [facility] CAREMCD COMM STAR [facility] - PLANxxxxxxxxxMedicaid [facility] Contracted Center Problems Condition Condition Condition Status Onset Resolution Last Treating Co mments Source Name Details Category Date Date Treatment Clinician Date Left sided Left sided Disease Active 2018-[address] numbness numbness 09-15 [facility] - 00:[facility]: Medical 00 [place] ESRD on ESRD on Disease Active 2018-[address] [facility] dialysis dialysis 09-15 [facility] - 00:[facility]: Medical 00 [place] Proteinuri Proteinuri Disease Active [facility] [...] 03-16 [facility] - encephalop encephalop 00:00: Ar dical athy athy 00 Center Cerebrovas Cerebrovas [...] 03-15 [facility] kes - phageal phageal 00:00: [facility] reflux reflux 00 [place] disease) disease) COPD COPD Disease Active [facility] ([facility]ronic (chronic 03-15 [facility] - obstructiv obstructiv 00:00: Ar dical e e 00 Center pulmonary pulmonary [...] 7-30 Carolann kes - y y 00:00: [place] [address] Center Allergies, Adverse Reactions, Alerts Allergy Allergy Status Severity Reaction(s) Onset Inactive Treating Comm ents Source Name Type Date Date Clinician No Known DA Active [facility] 08-22 [place] 00:[facility]: [address] Family History Family Member Diagnosis Comments Start Date Stop Date Source Natural father Hypertension [facility] Natural mother Diabetes [facility] Natural mother Kidney disease [facility] Social History Social Habit Start Date Stop Date Quantity Comments Source Sex Assigned At [facility] Smoking Status Start Date Stop Date Source Current every day smoker 2019-07-16 00:00:00 [facility] Medications Ordered Filled Start Stop Current [...] for 30 days. cyclobenzap 2018-08 Yes 2.5mg Q.[id number] Take 2.[address] rine 0-16 [id number] mg by [facility] - (FLEXERIL) 00:00: 3D mouth 3 Medi ghassan 5 MG tablet 00 (three) Cente r times daily. DULoxetine 2018-08 Yes 30mg QD Take [address] (CYMBALTA) 0-16 by mouth [facility] - 30 MG 00:00: daily. Medical capsule [address] [place] [address] famotidine 2018-08 Yes 20mg QD Take 20 [...] Center needed for Anxiety. busPIRone Yes 10mg Q.87717056 Take [address] (BUSPAR) 10 7-30 [id number] by mouth 3 [facility] - MG tablet [...] Source Systolic blood 2019-07-18 11:00:00 163 mm[Hg] [facility] Diastolic blood 2019-07-18 11:00:00 76 mm[Hg] [facility] pressure [facility] Heart rate 2019-07-18 11:00:00 85 /min [facility] Body temperature 2019-07-18 11:00:00 36.5 Mallory [facility] Respiratory rate 2019-07-18 11:00:00 18 /min [facility] Oxygen saturation in 2019-07-18 11:00:00 98 /min [facility] - Arterial blood by Medical Ce nter Pulse oximetry Body weight Measured 2019-07-16 17:08:00 98.8 kg [facility] BMI 2019-07-16 17:08:00 37.39 kg/m2 [facility] Body height 2019-07-15 21:22:00 162.6 cm [facility] Procedures Procedure Date / Time Performing Clinician Source Performed REPORT OF PROCEDURE - 2019-07-21 08:51:04 Provider, Default [facility] ENDOSCOPY SCAN Scanning [facility] RHYTHM STRIP - SCAN 2019-07-21 08:50:54 Provider, Default [facility] XR CHEST 1 VIEW 2019-07-18 11:09:[address] [facility] PORTABLE/BEDSIDE [facility] Center POCT-GLUCOSE METER 2019-07-18 08:22:00 Ann Lim [facility] BASIC METABOLIC PANEL (7) 2019-07-18 04:37:00 [facility] 2019-07-18 04:37:00 [facility] PHOSPHORUS 2019-07-18 04:37:00 [facility] PROTHROMBIN TIME/INR 2019-07-18 04:37:00 [facility] CBC W/PLT COUNT & AUTO 2019-07-18 04:37:00 [facility] POCT-GLUCOSE METER 2019-07-17 20:56:00 Shania Schultz [facility] POCT-GLUCOSE METER 2019-07-17 17:07:00 Shania Schultz [facility] POCT-GLUCOSE METER 2019-07-17 12:28:00 Shania Schultz [facility] SCREEN, URINE 2019-07-17 11:36:00 Ann Cook [facility] POCT-GLUCOSE METER 2019-07-17 07:18:00 Shania Schultz [facility] BASIC METABOLIC PANEL (7) 2019-07-17 05:55:00 [facility] MAGNESIUM 2019-07-17 05:55:00 [facility] PHOSPHORUS 2019-07-17 05:55:00 [facility] PROTHROMBIN TIME/INR 2019-07-17 05:55:00 [facility] CBC W/PLT COUNT & AUTO 2019-07-17 05:55:00 [facility] MRA HEAD WITHOUT IV 2019-07-17 00:54:00 [facility] MRA NECK WITHOUT IV 2019-07-17 00:54:00 [facility] MR BRAIN WITHOUT IV 2019-07-17 00:54:00 [facility] ECHOCARDIOGRAM REPORT - 2019-07-16 21:20:18 Provider, Default [facility] POCT-GLUCOSE METER 2019-07-16 21:03:00 Shania Schultz [facility] HEMODIALYSIS INPATIENT 2019-07-16 17:23:31 Ashwin Cole [facility] POCT-GLUCOSE METER 2019-07-16 17:21:00 Shania Schultz [facility] HEPATITIS B SURFACE 2019-07-16 13:41:00 Ashwin Cole [facility] POCT-GLUCOSE METER 2019-07-16 13:01:00 Shania Schultz [facility] POCT-GLUCOSE METER 2019-07-16 12:03:00 Shania Schultz [facility] 2D ECHO W/ DOPPLER 2019-07-16 11:13:59 [facility] (CW/PW/COLOR) [facility] BASIC METABOLIC PANEL (7) 2019-07-16 08:40:00 [facility] POCT-GLUCOSE METER 2019-07-16 08:05:00 Shania Schultz [facility] ECG 12-LEAD 2019-07-16 07:43:10 [facility] POCT-GLUCOSE METER 2019-07-16 07:30:00 [facility] 1 VIEW 2019-07-16 07:04:00 [facility] PORTABLE/BEDSIDE Medical [place] POCT-GLUCOSE METER 2019-07-16 05:21:00 [facility] BASIC METABOLIC PANEL (7) 2019-07-16 05:14:00 [facility] HEMOGLOBIN A1C 2019-07-16 03:50:00 [facility] BASIC METABOLIC PANEL (7) 2019-07-16 03:49:00 [facility] HEPATIC FUNCTION PANEL 2019-07-16 03:49:00 [facility] MAGNESIUM 2019-07-16 03:49:00 [facility] PHOSPHORUS 2019-07-16 03:49:00 [facility] LIPID PANEL 2019-07-16 03:49:00 [facility] CBC W/PLT COUNT & AUTO 2019-07-16 03:49:00 [facility] PROTHROMBIN TIME/INR 2019-07-16 03:48:00 [facility] TSH/FREE T4 IF INDICATED 2019-07-16 03:48:00 [facility] VITAMIN B12 AND FOLATE 2019-07-16 03:48:00 [facility] RPR 2019-07-16 03:48:00 [facility] HIV-1 ANTIGEN WITH HIV-1/2 2019-07-16 03:48:00 Arvin Ann [facility] POCT-GLUCOSE METER 2019-07-16 03:34:00 Arvin Ann [facility] [id number] 2019-05-18 00:00:00 ENCPL [id number] 2019-05-18 00:00:00 ENCPL [id number] 2019-05-18 00:00:00 ENCPL [id number] 2019-05-18 00:00:00 ENCPL Plan of Care Planned Activity Planned Date Details Comments Source Future Scheduled 2020-04-17 INFLUENZA VACCINE (#1) [facility] 00:[facility]00 [code = INFLUENZA Medical Ce nter VACCINE (#1)] Future Scheduled 2019-10-[address] [facility] - Test 00:00:00 measurement Medical Center (procedure) [code = 20240180] Future Scheduled 2018-03-17 Urine screening for [facility] Test 00:00:00 protein (procedure) Medical Center [code = 069736530] Future Scheduled 2017-08-[address] [facility] - Test 00:00:00 WELLNESS (YEAR 2 or Medical Center FIRST YEAR if no IPPE) [code = MEDICARE ANNUAL WELLNESS (YEAR 2 or FIRST YEAR if no IPPE)] Future Scheduled 1995-10-[address] [facility] - Test 00:00:00 [facility] cervix (procedure) [code = 309584340] Future Scheduled [address] DIABETIC EYE EXAM [facility] - Test 00:00:00 [code = DIABETIC EYE Medical Center EXAM] Future Scheduled [address] [facility] - Test 00:00:00 examination Medical Center (regime/therapy) [code = 906747209] Future Scheduled [address] [facility] - Test 00:00:00 2-64 YEARS AT RISK (1 Medica l Center of 3 - PCV13) [code = PNEUMOCOCCAL VACCINE 2-64 YEARS AT RISK (1 of 3 - PCV13)] Encounters Start End Encounter Admission Attending Care Care Encounter Source Date/Time Date/Time Type Type Clinicians Facility Department ID 2019-04-12 Inpatient [facility] [id number] 13:57:46 Results Test Description Test Time [...] to HBV infection.~~~~~ ~~~~~~~~~~~~~~~~~~~~~~~~~~~~~~~~~~~~~~~~~~~~~~~~~~~~~~~ AG HEPATITIS B [id number] 18:16:00 Test Item Value Reference Range Interpretation Comments AG HEPATITIS B SURFACE (test code = NEGATIVE NONREACTIVE HBSAG) HIV 12 AB [id number] 18:16:00 Test Item Value Reference Range Interpretation Comments HIV 1 2 COMBO AG/AB SCREEN AB/AG NON REACTIVE NONREACTIVE (test code = [id number]) HEPATITIS B SURF AB, [id number] 17:51:00 Test Item Value Reference Range Interpretation Comments HEPATITIS B SURF AB, QUANT (test code mIU/mL = HBSABQ) AG HEPATITIS B [id number] 17:51:00 Test Item Value Reference Range Interpretation Comments AG HEPATITIS B SURFACE (test code = NEGATIVE NONREACTIVE HBSAG) HIV 12 AB [id number] 17:51:00 Test Item Value Reference Range Interpretation Comments HIV 1 2 COMBO AG/AB SCREEN AB/AG NON REACTIVE NONREACTIVE (test code = [id number]) HEPATITIS B SURF AB, [id number] 17:39:00 Test Item Value Reference Range Interpretation Comments HEPATITIS B SURF AB, QUANT (test code mIU/mL = HBSABQ) AG HEPATITIS B [id number] 17:39:00 Test Item Value Reference Range Interpretation Comments AG HEPATITIS B SURFACE (test code = NEGATIVE NONREACTIVE HBSAG) HIV 12 AB [id number] 17:39:00 Test Item Value Reference Range Interpretation Comments HIV 1 2 COMBO AG/AB SCREEN (test code = NONREACTIVE [id number]) GLUCOSE BEDSIDE [id number] 12:00:00 Test Item Value Reference Range Interpretation Comments GLUCOSE BEDSIDE TESTING (test code 136 MG/DL 60-99 H = GLUBED) GLUCOSE BEDSIDE [id number] 21:08:00 Test Item Value Reference Range Interpretation Comments GLUCOSE BEDSIDE TESTING (test code = 84 MG/DL 60-99 N GLUBED) BASIC METABOLIC [id number] 16:40:00 Test Item Value Reference Range Interpretation [...] 9.0 MG/DL 8.4-10.2 N CA) HCG SERUM [id number] 16:40:00 Test Item Value Reference Range Interpretation Comments HCG SERUM QUAL (test code = HCGQL) NEGATIVE NEGATIVE A PROTHROMBIN [id number] 16:32:00 Test Item Value Reference Range Interpretation [...] sunshine embolism. 3.0 - 4.5 Comments to Termite Technician: PREOPPTT [id number] 16:32:00 Test Item Value Reference Range Interpretation Comments PTT ACTIVATED (test code = APTT) 30.3 SECONDS 22.0-33.0 N Comments to Termite Technician: PREOPBASIC METABOLIC [id number] 16:32:00 Test Item Value Reference Range Interpretation [...] code = CA) MG/DL 8.7-9.7 HCG SERUM [id number] 16:32:00 Test Item Value Reference Range Interpretation Comments HCG SERUM QUAL (test code = HCGQL) NEGATIVE NEGATIVE A BASIC METABOLIC [id number] 16:31:00 Test Item Value Reference Range Interpretation [...] code = CA) MG/DL 8.7-9.7 HCG SERUM [id number] 16:31:00 Test Item Value Reference Range Interpretation Comments HCG SERUM QUAL (test code = HCGQL) NEGATIVE CBC W/AUTO [id number] 16:25:00 Test Item Value Reference Range Interpretation [...] 0.00 K/mm3 0.0-0.1 N NRBC#) GLUCOSE BEDSIDE [id number] 18:41:00 Test Item Value Reference Range Interpretation Comments GLUCOSE BEDSIDE TESTING (test code = 83 MG/DL 60-99 N GLUBED) BASIC METABOLIC [id number] 15:04:00 Test Item Value Reference Range Interpretation [...] 9.1 MG/DL 8.4-10.2 N CA) BASIC METABOLIC [id number] 15:00:00 Test Item Value Reference Range Interpretation [...] code = CA) MG/DL 8.7-9.7 HCG SERUM [id number] 14:59:00 Test Item Value Reference Range Interpretation Comments HCG SERUM QUAL (test code = HCGQL) NEGATIVE NEGATIVE A PROTHROMBIN [id number] 14:56:00 Test Item Value Reference Range Interpretation [...] syste sunshine embolism. 3.0 - 4.5 PTT [id number] 14:56:00 Test Item Value Reference Range Interpretation Comments PTT ACTIVATED (test code = APTT) 27.9 SECONDS 22.0-33.0 N CBC W/AUTO [id number] 14:43:00 Test Item Value Reference Range Interpretation [...] N NRBC#) RAD, CHEST, 1 VIEW, NON [id number] 11:27:00Reason for exam:->r/o pneumoniaShould this be performed [...] MDReport Verified Date/Time: 07/18/2019 11:27:35 Reading Location: [facility] Radiology Reading Room XR chest 1 view portable / [id number] 11:27:00 Interface, External Ris In - 07/18/2019 11:29 AM CSTFINAL REPORT RAD, CHEST, 1 VIEW, NON DEPT INDICATION: r/o pneumonia COMPARISON: July 16, 2019 FINDINGS: Portable frontal view of the chest. IMPRESSION: Support Lines: Stable left IJ dual-lumen central venous catheter. Lungs and pleura: Lungs are clear. No effusion. No pneumothorax.Heart and mediastinum: Stable contours.Additional findings: None. Signed: JR Mccollum Robert MDReport Verified Date/Time: 07/18/201911:27:35 Reading Location: [facility] Radiology Reading Room [facility]-Glucose [id number] 08:34:00 Test Item Value Reference Range Interpretation Comments POC-Glucose Meter (test 126 mg/dL 70-110 H : TE STED AT [facility] code = 1538) [address] [facility], 770 30: 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 tammy ID = [id number] for Lenora Kuo onregulo Lab Interpretation (test Abnormal code = 06620-9) [facility]-GLUCOSE [id number] 08:34:00 Test Item Value Reference Range Interpretation Comments POC-GLUCOSE METER 126 mg/dL 70-110 H : TESTED A T [facility] 6720 (BEAKER) (test code = [place], 1538) [address]: 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 tammy ID = [id number] for Baldomero Carney ECG 12 [id number] 07:35:45Interface, External Ris In - 07/18/2019 7:35 AM CSTVentricular Rate 87 BPMAtrial Rate 87 BPMP-R Interval 136 msQRS Duration 72 msQ-T Interval 380 msQTC Calculation(Bazett) 457 msP [place] 68 degreesR [place] 17 degreesT [place] 65 degreesNormal sinus rhythmNormal ECGWhen compared with ECG of 19-MAR-2017 15:16,QT has shortenedConfirmed by MD BROCK, LAKSHMI ([id number]) on 07/18/2019 7:35:43 [facility] metabolic [id number] 06:56:00 Test Item Value Reference Range Interpretation Comments Sodium (test code = 134 meq/L 136-145 L 2951-2) Potassium (test code = 5.0 meq/L 3.5-5.1 2823-3) Chloride (test code = 103 meq/L 98-107 2075-0) CO2 (test code = 25 meq/L 22-29 2028-9) BUN (test code = 28 mg/dL 7-21 H 3094-0) Creatinine (test code = 5.40 mg/dL 0.57-1.25 H 2160-0) Glucose (test code = 146 mg/dL 70-105 H 2345-7) Calcium (test code = 8.8 mg/dL 8.4-10.2 98696-0) EGFR (test code = 9 mL/min/1.73 [place] [address]-2) NOT ACCURATE CREATININE CLEARANCE IN PREDICTING GLOMERULAR FILTRATION RATE . ESTIMATED GFR I S NOT APPLICABLE FOR DIALYSIS PATIEN TS. Lab Interpretation Abnormal (test code = 25910-9) [facility] METABOLIC [id number] 06:56:00 Test Item Value Reference Range Interpretation Comments SODIUM (BEAKER) 134 meq/L 136-145 L (test code = 381) POTASSIUM (BEAKER) 5.0 meq/L 3.5-5.1 (test code = 379) CHLORIDE (BEAKER) 103 meq/L 98-107 (test code = 382) CO2 (BEAKER) (test 25 meq/L 22-29 code = 355) BLOOD UREA NITROGEN 28 [...] S NOT APPLICABLE FOR DIALYSIS PATIEN TS. [id number] 06:45:00 Test Item Value Reference Range Interpretation Comments Magnesium (test code = 99889-0) 2.0 mg/dL 1.6-2.6 Lab Interpretation (test code = Normal 60390-9) [facility] 06:45:00 Test Item Value Reference Range Interpretation Comments Phosphorus (test code = 2777-1) 4.6 mg/dL 2.3-4.7 Lab Interpretation (test code = Normal 62085-8) [facility]2019-12-02 06:45:00 Test Item Value Reference Range Interpretation Comments PHOSPHORUS (BEAKER) (test code = 4.6 mg/dL 2.3-4.7 604) [id number] 06:45:00 Test Item Value Reference Range Interpretation Comments MAGNESIUM (BEAKER) (test code = 2.0 mg/dL 1.6-2.6 627) CBC with platelet count + automated [id number] 05:35:00 Test Item Value Reference Range Interpretation [...] 450 K/CU MM MPV (test code = 14330-9) 9.5 fL 9.4-12.3 nRBC (test code = [...] 2801) Lab Interpretation (test code = Abnormal 71361-3) [facility] W/PLT COUNT & AUTO [id number] 05:35:00 Test Item Value Reference Range Interpretation [...] PERCENT (BEAKER) (test code = 2801) Prothrombin time/[id number] 05:24:00 Test Item Value Reference Range Interpretation [...] valves. Lab Interpretation Normal (test code = 07359-5) [facility]/[id number] 05:24:00 Test Item Value Reference Range Interpretation [...] is2.5-3.5 for patients wiht mechanical heart valves.POCT-GLUCOSE [id number] 21:08:00 Test Item Value Reference Range Interpretation Comments POC-GLUCOSE METER 191 mg/dL 70-110 H : TESTED A T [facility] 6720 (BEAKER) (test code = [facility], 1538) [address]: 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 tammy ID = [id number] for Keith Quintero POCT-GLUCOSE [id number] 17:20:00 Test Item Value Reference Range Interpretation Comments POC-GLUCOSE METER 168 mg/dL 70-110 H : TESTED A T [facility] 6720 (BEAKER) (test code = [facility], 1538) [address]: 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 tammy ID = [id number] for HU NT, MAVIS POCT-GLUCOSE [id number] 12:49:00 Test Item Value Reference Range Interpretation Comments POC-GLUCOSE METER 221 mg/dL 70-110 H : TESTED A T [facility] 6720 (BEAKER) (test code = [facility], 1538) [address]: 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 tammy ID = [id number] for HU NT, MAVIS Screen, [id number] 11:54:00 Test Item Value Reference Range Interpretation Comments Preg Test, Ur (test code = 2112-1) Negative [facility]Y SCREEN, [id number] 11:54:00 Test Item Value Reference Range Interpretation Comments TEST URINE (BEAKER) (test Negative code = 583) POCT-GLUCOSE [id number] 09:11:00 Test Item Value Reference Range Interpretation Comments POC-GLUCOSE METER 112 mg/dL 70-110 H : TESTED A T [facility] 6720 (BEAKER) (test code = [place], 1538) [address]: 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 tammy ID = [id number] for MAVIS GARRIDO BASIC METABOLIC [id number] 06:50:00 Test Item Value Reference Range Interpretation [...] S NOT APPLICABLE FOR DIALYSIS PATIEN TS. [id number] 06:38:00 Test Item Value Reference Range Interpretation Comments PHOSPHORUS (BEAKER) (test code = 3.9 mg/dL 2.3-4.7 604) [id number] 06:38:00 Test Item Value Reference Range Interpretation Comments MAGNESIUM (BEAKER) (test code = 1.9 mg/dL 1.6-2.6 627) PROTHROMBIN TIME/[id number] 06:12:00 Test Item Value Reference Range Interpretation [...] mechanical heart valves.CBC W/PLT COUNT & AUTO [id number] 06:06:00 Test Item Value Reference Range Interpretation [...] 0-1 PERCENT (BEAKER) (test code = 2801) [id number] 04:27:00 Test Item Value Reference Range Interpretation Comments RPR (test code = 23791-9) Nonreactive Nonreactive Lab Interpretation (test code = Normal 98798-7) [facility] 04:27:00 Test Item Value Reference Range Interpretation Comments RPR SCREEN (BEAKER) (test code = Nonreactive Nonreactive 420) MR, MRA, BRAIN, WITHOUT [id number] 03:28:00Reason for exam:- >StrokeWhat is the patient's [...] 07/17/2019 03:28:33 MR, MRA, NECK, WITHOUT IV [id number] 03:28:00FINAL REPORT MR, BRAIN, WITHOUT CONTRAST, MR, [...] Verified Date/Time: 07/17/2019 03:28:33 MR, BRAIN, WITHOUT [id number] 03:28:00 Reason for exam:->StrokeWhat is the patient's [...] Date/Time: 07/17/2019 03:28:33 MR MRA head without [id number] 03:28:00 Interface, External Ris In - 07/17/2019 [...] Yg Conley MDReport Verified Date/Time: 07/17/2019 03:28:33 [facility] [id number] 03:28:00Interface, External Ris In - 07/17/2019 4:57 [...] Yg Conley MDReport Verified Date/Time: 07/17/2019 03:28:33 [facility] IV [id number] 03:28:00Interface, External Ris In - 07/17/2019 4:57 [...] ICAs and vertebral arteries. Signed: Yg Conley Verified Date/Time: 07/17/2019 03:28:33 [facility] [id number] 21:16:00 Test Item Value Reference Range Interpretation Comments POC-GLUCOSE METER 143 mg/dL 70-110 H : TESTED A T [facility] 6720 (BEAKER) (test code = [facility], 1538) [address]: 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 tammy ID = [id number] for JUSTIN BLAKEJANELL REYES POCT-GLUCOSE [id number] 17:33:00 Test Item Value Reference Range Interpretation Comments POC-GLUCOSE METER 108 mg/dL 70-110 : TESTED A T [facility] 6720 (BEAKER) (test code = [facility], 1538) [address]: 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 tammy ID = [id number] for TAVON DUVALL POCT-GLUCOSE [id number] 17:25:00 Test Item Value Reference Range Interpretation Comments POC-GLUCOSE METER 155 mg/dL 70-110 H : TESTED A T [facility] 6720 (BEAKER) (test code = [employer] [facility], 1538) [address]: 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 tammy ID = [id number] for SIMON CHO HEMODIALYSIS [id number] 17:23:31Tavon Mcduffie RN 07/16/2019 5:24 PMVerified HD [...] Lab Results Component Value Date HEPBSAG Nonreactive 07/16/2019[facility] B surface [id number] 14:30:00 Test Item Value Reference Range Interpretation Comments HBsAg Screen (test code = 5195-3) Nonreactive Nonreactive Lab Interpretation (test code = Normal 57974-0) [facility] B SURFACE [id number] 14:30:00 Test Item Value Reference Range Interpretation Comments HEPATITIS B SURFACE ANTIGEN (2) Nonreactive Nonreactive (BEAKER) (test code = 2585) 2D Echo W/Doppler(CW/PW/Color)2019-07-16 14:11:04Ejection FractionSLEH ECHO HEARTLAB MKCKESSON CPACSInterface, External Ris In - 07/16/2019 2:11 PM C STTransthoracic Echocardiography Report (TTE) Demographics Patient Name GIGI CONROY Date of Study 07/16/2019 Gender Female Visit Number [id number] Race Unknown Room Number 7605 Number Date of 1975 Referring Arvin Ann Physician Age 43 year(s) Organ Teacher Daja Arthur, [facility] Disability Case Manager Yanna Mcdonald Interpreting MD Oscar Silver Physician [...] TR Velocity: 2.31 m/s TR Gradient: 21.42 mmHgCHI [facility]ern Medical CenterPOCT- GLUCOSE [id number] 12:17:00 Test Item Value Reference Range Interpretation Comments POC-GLUCOSE METER 146 mg/dL 70-110 H : TESTED A T [facility] 6720 (BEAKER) (test code = [facility] [place], 1538) [address]: 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 tammy ID = [id number] for MAVIS GARRIDO BASIC METABOLIC [id number] 09:26:00 Test Item Value Reference Range Interpretation [...] NOT APPLICABLE FOR DIALYSIS PATIEN TS. POCT-GLUCOSE [id number] 08:27:00 Test Item Value Reference Range Interpretation Comments POC-GLUCOSE METER 106 mg/dL 70-110 : TESTED A T [facility] 6720 (BEAKER) (test code = [facility], 1538) [address]: 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 tammy ID = [id number] for HARRISON GENEVAFILI SIMON POCT-GLUCOSE [id number] 07:46:00 Test Item Value Reference Range Interpretation Comments POC-GLUCOSE METER 171 mg/dL 70-110 H : TESTED A T [facility] 6720 (BEAKER) (test code [facility], = 1538) [address]: 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 tammy ID = [id number] for YASMINE VO, CHEST, 1 VIEW, NON [id number] 07:36:00Reason for exam:- >baselineShould this be performed [...] valve. Low lung volumes. Signed: Swapnil Chery MDRort Verified Date/Time: 07/16/2019 07:36:01 Reading Location: [facility] B1 C013Y CT Body Reading Room Hemoglobin [id number] 06:42:00 Test Item Value Reference Range Interpretation Comments Hemoglobin A1C (test code = 4548-4) 9.5 % 4.3-6.1 H Lab Interpretation (test code = Abnormal 46203-1) [facility] [id number] 06:42:00 Test Item Value Reference Range Interpretation Comments HEMOGLOBIN A1C (BEAKER) (test code = 9.5 % 4.3-6.1 H 368) BASIC METABOLIC [id number] 06:27:00 Test Item Value Reference Range Interpretation [...] 8.4-10.2 L (test code = 697) EGFR (AKER) (test 7 mL/min/1.73 ESTIMAT ED GFR IS code = 1092) sq m NOT ACCURATE CREATININE CLEARANCE IN PREDICTING GLOMERULAR FILTRATION RATE . ESTIMATED GFR I S NOT APPLICABLE FOR DIALYSIS PATIEN TS. HIV-1 Antigen with HIV-1/2 [id number] 05:52:00 Test Item Value Reference Range Interpretation Comments HIV-1 Antigen with HIV 1&2 Nonreactive Nonreactive Antibody (test code = 36224-4) Lab Interpretation (test code = Normal 52562-1) [facility] ANTIGEN WITH HIV-1/2 [id number] 05:52:00 Test Item Value Reference Range Interpretation Comments HIV-1 ANTIGEN WITH HIV 1\T\2 Nonreactive Nonreactive ANTIBODY (2) ([facility]) (test code = 2586) POCT-GLUCOSE [id number] 05:38:00 Test Item Value Reference Range Interpretation Comments POC-GLUCOSE METER 420 mg/dL 70-110 HH : Notified RN/MD: TESTED (TAINA) (test code AT [facility] 67[address] = 1538) [facility], [facility] 30: 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 ID = [id number] for HUGH Farah ANHMICHELLE TSH/Free T4 If [id number] 05:11:00 Test Item Value Reference Range Interpretation Comments TSH (test code = 33286-3) 0.87 0.35- 4.94 uIU/mL Lab Interpretation (test code = Normal 09738-0) [facility]itamin B12 and [id number] 05:11:00 Test Item Value Reference Range Interpretation Comments Vitamin B12 (test code = 2132-9) 525 pg/mL 213-816 Folate (test code = 2284-8) 6.5 ng/mL >=7.0 L Lab Interpretation (test code = Abnormal 96326-4) [facility]/FREE T4 IF [id number] 05:11:00 Test Item Value Reference Range Interpretation Comments THYROID STIMULATING HORMONE 0.87 uIU/mL 0.35-4.94 (BEAKER) (test code = 772) VITAMIN B12 AND [id number] 05:11:00 Test Item Value Reference Range Interpretation Comments VITAMIN B12 (BEAKER) (test code = 525 pg/mL 213-816 774) FOLATE (BEAKER) (test code = 362) 6.5 ng/mL >=7.0 L BASIC METABOLIC [id number] 04:57:00 Test Item Value Reference Range Interpretation [...] NOT APPLICABLE FOR DIALYSIS PATIEN TS. Lipid [id number] 04:47:00 Test Item Value Reference Range Interpretation Comments Triglycerides (test 100 mg/dL code = 2571-8) Cholesterol (test code 177 mg/dL = 2093-3) HDL (test code = 48 mg/dL 5-9) LDL Calculated (test 109 mg/dL code = 27922-9) YAKELIN (test code = YAKELIN) Triglyceride Reference Range: Low Risk <150 Borderline 150-199 High Risk 200-499 Very High Risk >=500 Cholesterol Reference Range: Low Risk <200 Borderline 200-239 High Risk >240 HDL Cholesterol Reference Range: Low Risk >=60 High Risk <40 LDL Cholesterol Reference Range: Optimal <100 Near Optimal 100-129 Borderline 130-159 High 160-189 Very High >=190 [facility] function [id number] 04:47:00 Test Item Value Reference Range Interpretation Comments Protein, Total (test code = 2885-2) 6.3 6.0- 8.3 gm/dL Albumin (test code = 16743-7) 3.0 g/dL 3.5-5 L Total Bilirubin (test code = 0.4 mg/dL 0.2-1.2 1974-09) Bilirubin, Direct (test code = 0.2 mg/dL 0.1-0.5 1968-02) Alkaline Phosphatase (test code = 182 U/L 40-150 H 6768-6) AST (test code = 1920-8) 63 U/L 5-34 H ALT (test code = 1742-6) 99 U/L 6-55 H Lab Interpretation (test code = Abnormal 65079-5) [facility]2019-11-30 04:47:00 Test Item Value Reference Range Interpretation Comments PHOSPHORUS (BEAKER) (test code = 5.5 mg/dL 2.3-4.7 H 604) [id number] 04:47:00 Test Item Value Reference Range Interpretation Comments MAGNESIUM (BEAKER) (test code = 2.0 mg/dL 1.6-2.6 627) LIPID [id number] 04:47:00 Test Item Value Reference Range Interpretation [...] 130-159 High 160-189 Very High >=190HEPATIC FUNCTION [id number] 04:47:00 Test Item Value Reference Range Interpretation [...] = 99 U/L 6-55 H 347) PROTHROMBIN [id number] 04:11:00 Test Item Value Reference Range Interpretation [...] mechanical heart valves.CBC W/PLT COUNT & AUTO [id number] 04:03:00 Test Item Value Reference Range Interpretation [...] PERCENT (BEAKER) (test code = 2801) POCT-GLUCOSE [id number] 03:47:00 Test Item Value Reference Range Interpretation Comments POC-GLUCOSE METER > mg/dL 70-110 HH : Notified RN/MD: TESTED (BEAKER) (test code = AT [facility] 67[address] 7888) [place], [address]: 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 tammy ID = [id number] for CATARINA Z, NADINA FACTOR 5 LEIDEN PCR (THROMBOTIC RISK)2017-03-24 19:24:00 Test Item Value Reference Range Interpretation Comments FACTOR V LEIDEN Negative for the R506Q ([facility]) (test code = (Factor V Leiden) 718) mutation [id number] Martínez Wang MD [facility] (test code = (electronic signature) 9968) This test is a genotyping assay which [...] developed and its performance characteristics determined bythe [facility], Section of Molecular Pathology. It has not been cleared or approved by the U.S. Food and Drug Administration (FDA), since FDA approval is not requ ired for clinical use of the test. Validation was done as required by the Clinical Laboratory Improvement Amendments of 1988.POCT-GLUCOSE [id number] 07:28:00 Test Item Value Reference Range Interpretation Comments POC-GLUCOSE METER 200 mg/dL 70-110 H TESTED AT [place] [address] ([facility]) (test code = [facility] 1538) [address] POCT-GLUCOSE [id number] 21:18:00 Test Item Value Reference Range Interpretation Comments POC-GLUCOSE METER 211 mg/dL 70-110 H TESTED AT [place] [address] ([facility]) (test code = [facility] 1538) [address] PROTEIN, RANDOM [id number] 19:43:00 Test Item Value Reference Range Interpretation Comments PROTEIN, URINE ([facility]) (test code 286 mg/dL 0-14 H = 1569) CREATININE, RANDOM [id number] 18:27:00 Test Item Value Reference Range Interpretation Comments CREATININE URINE ([facility]) (test 29.3 mg/dL code = 375) Reference Range: No NormalsDILUTE SHIRA VIPER VENOM (DRVV)2017-03-19 12:47:00 Test Item Value Reference Range Interpretation Comments PROTIME (BEAKER) (test 11.3 seconds 11.7-14.7 L code = 759) INR ([facility]) (test code 0.8 <=5.9 = 370) PARTIAL THROMBOPLASTIN 28.0 seconds 22.5-36.0 TIME (AKER) (test code = 760) DRVV INTERPRETATION Normal DRVV Results (BEAKER) (test code = 3856) DRVV INTERPRETATION Normal Hexagonal (BEAKER) (test code = Phospholipid 479109) [id number] Martínez Wang MD ([facility]) (test code = (electronic 2610) signature) DRVV SCREEN RATIO 0.84 <1.20 (AKER) (test code = 3419) Effective 12/20/2013: Test Method ChangeDRVV Screen Ratio, DRVV 1/1 Screen Ratio, DRVV Confirm Ratio,DRVV Normalized Ratio Reference Range: <1.2Protime Reference Range ChangeNew: 11.7-14.7 Previous: 9.8-12.0PTT Reference Range ChangeNew: 22.5-36.0 Previous: 25.8-34.5URINE [id number] 11:40:00 Test Item Value Reference Range Interpretation Comments CULTURE ([facility]) (test 20-29,000 col/mL skin code = 1095) lei POCT-GLUCOSE [id number] 08:33:00 Test Item Value Reference Range Interpretation Comments POC-GLUCOSE METER 293 mg/dL 70-110 H TESTED AT [facility] 6720 ([facility]) (test code = [facility] [place] 1538) [address] VITAMIN D, [id number] 07:49:00 Test Item Value Reference Range Interpretation Comments VITAMIN D 25-OH ([facility]) (test code = < ng/mL 13.0-47.8 L 2764) CBC W/PLT COUNT & AUTO [id number] 05:59:00 Test Item Value Reference Range Interpretation Comments WHITE BLOOD CELL COUNT (AKER) 9.4 K/ L 3.5-10.5 (test code = 775) RED BLOOD CELL COUNT (BEAKER) 4.16 M/ L 3.93-5.22 (test code = [...] (BEAKER) (test code = 2801) BASIC METABOLIC [id number] 05:38:00 Test Item Value Reference Range Interpretation [...] 358) GLUCOSE RANDOM 290 mg/dL 70-105 H (AKER) (test code = 652) CALCIUM (BEAKER) 8.7 mg/dL 8.4-10.2 (test code = 697) EGFR ([facility]) (test 27 mL/min/1.73 ESTIMA NHAN GFR IS code = 1092) sq m NOT ACCURATE CREATININE CLEARANCE IN PREDICTING GLOMERULAR FILTRATION RATE . ESTIMATED GFR I S NOT APPLICABLE FOR DIALYSIS PATIEN TS. [id number] 05:37:00 Test Item Value Reference Range Interpretation Comments PHOSPHORUS (BENANCI) (test code = 4.1 mg/dL 2.3-4.7 604) [id number] 05:37:00 Test Item Value Reference Range Interpretation Comments MAGNESIUM (BEAKER) (test code = 1.7 mg/dL 1.6-2.6 627) PTH, [id number] 05:34:00 Test Item Value Reference Range Interpretation Comments PARATHYROID HORMONE INTACT 57.2 pg/mL 8.5-72.5 (NANCI) (test code = 577) Effective 07/04/2014: Reference Range ChangeNew: 8.5-72.5 Previous: 15.0-90.0 CARDIOLIPIN ANTIBODIES, IGG AND [id number] 22:36:00 Test Item Value Reference Range Interpretation Comments ANTICARDIOLIPIN IGG ANTIBODY (TAINA) < GPL (test code = 712) ANTICARDIOLIPIN IGM ANTIBODY ([facility]) 2.8 MPL (test code = 713) Anticardiolipin IgG Result Interpretation:NEG: <20 GPL; U/mlPOS: >/=20 GPL; U/mlAnticardiolipin IgM Result Interpretation:NEG: <20 MPL; U/mlPOS: >/=20 MPL; U/mlPOCT-GLUCOSE [id number] 21:25:00 Test Item Value Reference Range Interpretation Comments POC-GLUCOSE METER 198 mg/dL 70-110 H TESTED AT [facility] 6720 ([facility]) (test code = [place] 1538) [address] POCT-GLUCOSE [id number] 16:29:00 Test Item Value Reference Range Interpretation Comments POC-GLUCOSE METER 296 mg/dL 70-110 H TESTED AT [facility] 6720 [facility] (test code = [address] [place] 1538) [address] ANTI-NUCLEAR ANTIBODY (MARY)2017-03-18 15:30:00 Test Item Value Reference Range Interpretation Comments ANTI-NUCLEAR ANTIBODY (MARY) (BEAKER) Negative Negative (test code = 418) HEXAGONAL [id number] 13:21:00 Test Item Value Reference Range Interpretation Comments HEXAGONAL PHOSPHOLIPID (BEAKER) Negative (test code = 1790) POCT-GLUCOSE [id number] 12:15:00 Test Item Value Reference Range Interpretation Comments POC-GLUCOSE METER 140 mg/dL 70-110 H TESTED AT [place] [address] ([facility] (test code = [facility] Isabel [facility] 1538) [address] PROTEIN C [id number] 11:44:00 Test Item Value Reference Range Interpretation Comments PROTEIN C ACTIVITY (BEAKER) (test 155.0 % 70.0-130.0 H code = 582) Effective 12/20/2013: Reference Range Change-Adult onlyNew: 70.0-130.0 Previous: 70.0-140.0See Protein C Antigen.ANTITHROMBIN [id number] 11:43:00 Test Item Value Reference Range Interpretation Comments ANTITHROMBIN III ACTIVITY (BEAKER) 87.0 % 80.0-120.0 (test code = 711) Effective 12/20/2013: Reference Range Change-Adult onlyNew: 80.0-120.0 Previous: 90.0-128.0POCT-GLUCOSE [id number] 08:17:00 Test Item Value Reference Range Interpretation Comments POC-GLUCOSE METER 107 mg/dL 70-110 TESTED AT [facility] 6720 (BEAKER) (test code = [facility] 1538) [address] BASIC METABOLIC [id number] 06:32:00 Test Item Value Reference Range Interpretation [...] PATIEN TS. CBC W/PLT COUNT & AUTO [id number] 05:56:00 Test Item Value Reference Range Interpretation [...] PERCENT (BEAKER) (test code = 2801) POCT-GLUCOSE [id number] 04:32:00 Test Item Value Reference Range Interpretation Comments POC-GLUCOSE METER 107 mg/dL 70-110 TESTED AT [place] [address] ([facility]) (test code = [facility] 1538) [address] POCT-GLUCOSE [id number] 22:21:00 Test Item Value Reference Range Interpretation Comments POC-GLUCOSE METER 118 mg/dL 70-110 H TESTED AT [place] [address] ([facility]) (test code = [facility] 1538) [address] POCT-GLUCOSE [id number] 21:22:00 Test Item Value Reference Range Interpretation Comments POC-GLUCOSE METER 52 mg/dL 70-110 L Notified Isabel Ro MD/TESTED AT ([facility]) (test code = [address] 1538) [facility] [address] MICROALBUMIN, RANDOM [id number] 17:57:00 Test Item Value Reference Range Interpretation Comments MICROALBUMIN URINE (BEAKER) (test > mg/dL code = 1794) Reference Range: No NormalsURINALYSIS W/ [id number] 17:36:00 Test Item Value Reference Range Interpretation [...] 516) SOURCE(BEAKER) (test code = Urine, Voided 6903) SCREEN, [id number] 17:36:00 Test Item Value Reference Range Interpretation Comments TEST URINE (BEAKER) (test Negative code = 583) CREATININE, RANDOM [id number] 17:35:00 Test Item Value Reference Range Interpretation Comments CREATININE URINE (BEAKER) (test 33.9 mg/dL code = 375) Reference Range: No NormalsSODIUM, RANDOM [id number] 17:35:00 Test Item Value Reference Range Interpretation Comments SODIUM URINE (BEAKER) (test code = 63 meq/L 243) Reference Range: No NormalsPOCT-GLUCOSE [id number] 17:34:00 Test Item Value Reference Range Interpretation Comments POC-GLUCOSE METER 118 mg/dL 70-110 H TESTED AT [facility] 6720 ([facility] (test code = [place] [facility] 1538) [address] POCT-GLUCOSE [id number] 13:28:00 Test Item Value Reference Range Interpretation Comments POC-GLUCOSE METER 71 mg/dL 70-110 TESTED AT [facility] 6720 ([facility] (test code = [place] [facility] [address] 1538) POCT-GLUCOSE [id number] 10:37:00 Test Item Value Reference Range Interpretation Comments POC-GLUCOSE METER 144 mg/dL 70-110 H TESTED AT [facility] 6720 (BEAKER) (test code = [place] 1538) [address] POCT-GLUCOSE [id number] 07:18:00 Test Item Value Reference Range Interpretation Comments POC-GLUCOSE METER 60 mg/dL 70-110 L TESTED AT [facility] 6720 (BEAKER) (test code = [place] [address] 1538) CBC W/PLT COUNT & AUTO [id number] 05:51:00 Test Item Value Reference Range Interpretation [...] (BEAKER) (test code = 2801) BASIC METABOLIC [id number] 05:51:00 Test Item Value Reference Range Interpretation [...] NOT APPLICABLE FOR DIALYSIS PATIEN TS. POCT-GLUCOSE [id number] 21:41:00 Test Item Value Reference Range Interpretation Comments POC-GLUCOSE METER 287 mg/dL 70-110 H TESTED AT [facility] 6720 (BEAKER) (test code = [place] 1538) [address] BASIC METABOLIC [id number] 12:35:00 Test Item Value Reference Range Interpretation [...] report . CBC W/PLT COUNT & AUTO [id number] 04:54:00 Test Item Value Reference Range Interpretation [...] 0-1 PERCENT (BEAKER) (test code = 2801) [id number] 20:17:00 Test Item Value Reference Range Interpretation Comments RPR SCREEN (BEAKER) (test code = Nonreactive Nonreactive 420) POCT-GLUCOSE [id number] 18:09:00 Test Item Value Reference Range Interpretation Comments POC-GLUCOSE METER 215 mg/dL 70-110 H TESTED AT [facility] 6720 (BEAKER) (test code = [place] 1538) [address] CBC W/PLT COUNT & AUTO [id number] 11:54:00 Test Item Value Reference Range Interpretation [...] (BEAKER) (test code = Normal 762) SEDIMENTATION [id number] 10:27:00 Test Item Value Reference Range Interpretation Comments SEDIMENTATION RATE, ERYTHROCYTE 79 mm/HR 0-20 H (BEAKER) (test code = 766) HEMOGLOBIN [id number] 09:33:00 Test Item Value Reference Range Interpretation Comments HEMOGLOBIN A1C (BEAKER) (test code = 9.8 % 4.3-6.1 H 368) VITAMIN [id number] 09:14:00 Test Item Value Reference Range Interpretation Comments VITAMIN B12 (BEAKER) (test code = 1790 pg/mL 213-816 H 774) TSH/FREE T4 IF [id number] 09:14:00 Test Item Value Reference Range Interpretation Comments THYROID STIMULATING HORMONE 1.08 uIU/mL 0.35-4.94 (BEAKER) (test code = 772) BASIC METABOLIC [id number] 08:52:00 Test Item Value Reference Range Interpretation [...] DATA TO CALCULA TE ESTIMATED GFR. FastingLIPID [id number] 08:51:00 Test Item Value Reference Range Interpretation [...] High 160-189 Very High >=190 FastingHCG, QUANTITATIVE, [id number] 01:43:00 Test Item Value Reference Range Interpretation Comments GONADOTROPIN, CHORIONIC (HCG) QUANT < mIU/mL 0-10 (BEAKER) (test code = 649) Non- Females: <10 mIU/mL Females: Gestation Age Reference Range(mIU/mL) 0.2-1 Week 5-50 1-2 Weeks 50-500 2-3 Weeks 100-5,000 3-4Weeks 500-10,000 4-5 Weeks 1,000-50,000 5-6 Weeks 10,000-100,000 6-8 Weeks 15,000-200,000 2-3 Months 10,000-100,000COMPREHENSIVE METABOLIC [id number] 21:57:00 Test Item Value Reference Range Interpretation [...] 5-34 (test code = 353) ALT (SGPT) ([facility]) 14 U/L 6-55 (test code = 347) EGFR ([facility]) (test mL/min/1.73 INSUFFIC IENT code = 1092) sq m CLINICAL DATA T O CALCULATE ESTIM ATED GFR. Unit CollectPOCT-GLUCOSE [id number] 21:50:00 Test Item Value Reference Range Interpretation Comments POC-GLUCOSE METER 278 mg/dL 70-110 H TESTED AT [facility] 67 ([facility]) (test code = [place] 1538) [address]
[2020-02-29 12:50] LABS: Potassium 3.4 mmol/L (3.5-5.1)
[2020-02-29] MEDS ORDERED: MORPHINE 4 MG/ML SYR ONE ×2 (13:36→16:01)
[2020-02-29] MEDS ORDERED: ONDANSETRON 4 MG/2 ML VIAL ONE ×2 (13:36→16:01)
--- NOTE | 2020-02-29 15:16 | RAD REPORT ---
EXAM DESCRIPTION: MRI - Brain Wo Cont - 02/29/2020 2:47 pm CLINICAL HISTORY: left sided paresthesias COMPARISON: Brain Wo Cont dated 02/09/2020 TECHNIQUE: Sagittal T1-weighted images were obtained along with axial PD, heavily T2-weighted and T2 -FLAIR images. Axial DWI and ADC mapping sequences were also obtained along with coronal heavily T2-w eighted images. FINDINGS: No intracranial hemorrhage, mass or acute infarction. There is no edema or shift of midlin e structures. No extra-axial fluid collections. Coffman-matter/white matter junction is preserved. Signa l voids are seen as a normal finding in the major intracranial vessels. Mild volume loss changes are evident. Ventricles are normal. Patient has periventricular white matter signal abnormalities present. A focally more prominent 2 centimeter area is seen in the posterior ri ght frontal lobe. Focal signal abnormality seen in the posterior aspect of the left thalamus. Brainst em signal abnormalities are present as well. Mastoid air cells and paranasal sinuses are clear. No globe or orbital content abnormality. No sella or supra sella mass. IMPRESSION: No acute infarction changes seen on diffusion-weighted imaging. No hemorrhage or acute i ntracranial finding seen. Patient has excessive for age cerebral white matter and brainstem signal abnormality including a 2 ce ntimeter periventricular focus in the posterior right frontal lobe. Pattern is similar to February 08. Signal abnormalities may be areas of chronic ischemic change. This would be greater than expected for a patient this age. MS or other demyelinating process would be a consideration and needs correlation with history.
--- NOTE | 2020-02-29 15:24 | EDPHYS ---
Physician Documentation [facility] Name: Archana Woo Age: 44 yrs Sex: Female : 1975 Arrival Date: 02/29/2020 Time: 11:37 Bed 7 Private MD: ED Physician Russ Canales HPI: 02/28 11:42 This 44 yrs old Female presents to ER via Unassigned with complaints of pain rn and numbness to left arm/leg. 11:42 The patient's problem is reported as paresthesias, in left upper extremity, in left rn lower extremity. Onset: The symptoms/episode began/occurred at an unknown time. The symptoms are alleviated by nothing. The symptoms are aggravated by nothing. Severity of symptoms: At their worst the symptoms were mild in the emergency department the symptoms are unchanged. The patient has experienced similar episodes in the past. Reports woke up with left arm and leg tingling/pain, reports similar to past episodes when told had strokes. Reports last episode just a few weeks ago. No head injury. Reports last known normal last night. Due for dialysis today. No skin changes. no fever, does not feel ill. . Historical: - Allergies: 11:48 No Known Allergies; aa5 - PMHx: 11:37 BLIND; CVA; Depression; Diabetes - NIDDM; GERD; Hyperlipidemia; Hypertension; left arm aa5 paralysis; neuropathy; THYROID CANCER; TIA; - PSHx: 11:37 Cholecystectomy; ; aa5 - Immunization history:: Adult Immunizations unknown. - Social history:: Smoking status: Patient denies any tobacco usage or history of. - Family history:: not pertinent. - Hospitalizations: : The patient was recently seen at [facility]. ROS: 11:42 Constitutional: Negative for fever, chills, and weight loss, Eyes: Negative for injury, rn pain, redness, and discharge, Neck: Negative for injury, pain, and swelling, Cardiovascular: Negative for chest pain, palpitations, and edema, Respiratory: Negative for shortness of breath, cough, wheezing, and pleuritic chest pain, Abdomen/GI: Negative for abdominal pain, nausea, vomiting, diarrhea, and constipation, MS/Extremity: Negative for injury and deformity, Skin: Negative for injury, rash, and discoloration, Neuro: Negative for headache, weakness, and seizure. Exam: 11:42 Constitutional: This is a well developed, well nourished patient who is awake, alert, rn and in no acute distress. Head/Face: Normocephalic, atraumatic. Cardiovascular: Regular rate and rhythm. No pulse deficits. Respiratory: No increased work of breathing, no retractions or nasal flaring. Abdomen/GI: soft, non-tender Skin: Warm, dry MS/ Extremity: Pulses equal, no cyanosis. Neurovascular intact. Full, normal range of motion. Equal circumference. Neuro: Awake and alert, GCS 15, oriented to person, place, time, and situation. Motor strength 5/5 in all extremities. + areas of decreased sensation to soft touch but not pain on LUE/LLE. Vital Signs: 11:37 BP 205 / 84; Pulse 81; Resp 16 S; Temp 99.1(O); Pulse Ox 99% on R/A; Pain 10/10; aa5 12:17 BP 194 / 70; Pulse 81; Resp 18 S; Pulse Ox 99% on R/A; aa5 13:35 BP 195 / 72; Pulse 75; Resp 16 S; Pulse Ox 98% on R/A; aa5 16:10 BP 189 / 70; Pulse 74; Resp 16 S; Pulse Ox 98% on R/A; aa5 NIH Stroke Scale Scores: 11:37 NIHSS Score: 6 aa5 MDM: 11:37 Patient medically screened. rn 15:22 Differential diagnosis: TIA, metabolic disorder, ESRD, neuropathy, polyneuropathy, rn electrolyte disorder. Data reviewed: vital signs, nurses notes, lab test result(s), EKG, radiologic studies, CT scan, MRI, and as a result, I will discharge patient. Counseling: I had a detailed discussion with the patient and/or guardian regarding: the historical points, exam findings, and any diagnostic results supporting the discharge/admit diagnosis, lab results, radiology results, the need for outpatient follow up, to return to the emergency department if symptoms worsen or persist or if there are any questions or concerns that arise at home. Special discussion: I discussed with the patient/guardian in detail that at this point there is no indication for admission to the hospital. It is understood, however, that if the symptoms persist or worsen the patient needs to return immediately for re-evaluation. Based on the history and exam findings, there is no indication for further emergent testing or inpatient evaluation. I discussed with the patient/guardian the need to see the neurologist for further evaluation of the symptoms. ED course: Pt with neg ct head and neg MRI, unchanged compared to prior MRI imaging, last notes from neurology and discharge summary comment on multiple admission with neg MRI, recommend outpt f/u with neurology and return precautions. No emergent findings today. Recommend regular dialysis and neuro f/u. . 02/28 11:39 Order name: CBC with Diff; Complete Time: 12:35 rn 02/28 11:39 Order name: Basic Metabolic Panel; Complete Time: 13:35 rn 02/28 11:39 Order name: Protime (+inr); Complete Time: 12:35 rn 02/28 11:39 Order name: Ptt, Activated; Complete Time: 12:35 rn 02/28 11:39 Order name: CT Head Brain wo Cont; Complete Time: 12:11 rn 02/28 13:36 Order name: MRI - Brain Wo Cont; Complete Time: 15:21 rn 02/28 11:39 Order name: IV Start; Complete Time: 12:16 rn 02/28 11:39 Order name: EKG; Complete Time: 11:40 rn 02/28 11:39 Order name: EKG - Nurse/Tech; Complete Time: 11:48 rn Administered Medications: 13:36 Drug: morphine 4 mg Route: IVP; Site: right wrist; aa5 14:00 Follow up: Response: No adverse reaction; Pain is decreased aa5 13:36 Drug: Zofran (Ondansetron) 4 mg Route: IVP; Site: right wrist; aa5 14:00 Follow up: Response: No adverse reaction; Pain is decreased aa5 15:55 Drug: morphine 4 mg Route: IVP; Site: right wrist; aa5 16:00 Follow up: Response: No adverse reaction aa5 15:55 Drug: Zofran (Ondansetron) 4 mg Route: IVP; Site: right wrist; aa5 16:00 Follow up: Response: No adverse reaction aa5 Disposition: 02/29/20 15:24 Discharged to Home. Impression: Chronic pain, not elsewhere classified, Paresthesia of skin. - Condition is Stable. - Discharge Instructions: Chronic Pain, Paresthesia. - Medication Reconciliation Form, Thank You Letter, Antibiotic Education, Prescription Opioid Use form. - Follow up: Len Alex MD; When: As needed; Reason: Recheck today's complaints, Re-evaluation by your physician. - Problem is new. - Symptoms have improved. NIH Stroke Scale - NIH Stroke Score Date: 02/29/2020 Time: 11:37 Total Score = 6 1a. Level of Consciousness (LOC) - 0(Alert) 1b. Level of Consciousness (LOC) (Year \T\ Age) - 0(Both) 1c. LOC Commands (Open \T\ Closes Eyes/Cost Accounting Clerk) - 0(Both) 2. Best Gaze (Lateral Gaze Paresis) - 0(Normal) 3. Visual Field Loss - 3(Bilateral hemianopia) 4. Facial Palsy - 0(Normal) 5a. Left Arm: Motor (10-second hold) - 1(Drift) 5b. Right Arm: Motor (10-second hold) - 0(No drift) 6a. Left Leg: Motor (5-second hold - always test supine) - 1(Drift) 6b. Right Leg: Motor (5-second hold - always test supine) - 1(Drift) 7. Limb Ataxia (finger/nose \T\ heel/shetty - test with eyes open) - 0(Absent) 8. Sensory Loss (pinprick arms/legs/face) - 0(Normal) 9. Best Language: Aphasia (description/naming/reading) - 0(No aphasia) 10. Dysarthria (speech clarity - read or repeat words) - 0(Normal) 11. Extinction and Inattention (visual/tactile/auditory/spatial/personal) - 0(No abnormality) Initials: aa5 Signatures: Dispatcher [employer] Margarita Lorenz RN RN iw Nieto, Roman, MD MD rn Calderon, Audri, RN RN aa5 Corrections: (The following items were deleted from the chart) 16:48 15:24 02/29/2020 15:24 Discharged to Home. Impression: Chronic pain, not iw elsewhere classified; Paresthesia of skin. Condition is Stable. Forms are Medication Reconciliation Form, Thank You Letter, Antibiotic Education, Prescription Opioid Use. Follow up: Len Alex; When: As needed; Reason: Recheck today's complaints, Re-evaluation by your physician. Problem is new. Symptoms have improved. rn
--- NOTE | 2020-02-29 15:24 | ER ---
Nurse's Notes [facility] Name: Archana Woo Age: 44 yrs Sex: Female : 1975 Arrival Date: 02/29/2020 Time: 11:37 Bed 7 Private MD: Diagnosis: Chronic pain, not elsewhere classified;Paresthesia of skin Presentation: 02/28 11:37 Chief complaint: Patient states: "I woke up with numbness to my arms and legs but aa5 mainly on my left arm and my right hand hurts". Pt states "I fell on Thursday and landed straight on my butt". Pt denies LOC, denies head injury. 11:37 Coronavirus screen: Proceed with normal triage. Patient denies a cough. Patient denies aa5 shortness of breath or difficulty breathing. Patient denies measured and/or subjective temperature greater than 100.4F prior to today's visit. Patient denies travel on a cruise ship or to a country the [facility] currently lists as an affected area. Patient denies contact with known and/or suspected case of COVID-19. Ebola Screen: Patient negative for fever greater than or equal to 101.5 degrees Fahrenheit, and additional compatible Ebola Virus Disease symptoms. Initial Sepsis Screen: Does the patient meet any 2 criteria? No. Patient's initial sepsis screen is negative. Does the patient have a suspected source of infection? No. Patient's initial sepsis screen is negative. Risk Assessment: Do you want to hurt yourself or someone else? Patient reports no desire to harm self or others. Onset of symptoms was February 29, 2020. 11:37 Method Of Arrival: EMS: [facility] aa5 11:37 Acuity: TARUN 2 aa5 Historical: - Allergies: 11:48 No Known Allergies; aa5 - PMHx: 11:37 BLIND; CVA; Depression; Diabetes - NIDDM; GERD; Hyperlipidemia; Hypertension; left arm aa5 paralysis; neuropathy; THYROID CANCER; TIA; - PSHx: 11:37 Cholecystectomy; ; aa5 - Immunization history:: Adult Immunizations unknown. - Social history:: Smoking status: Patient denies any tobacco usage or history of. - Family history:: not pertinent. - Hospitalizations: : The patient was recently seen at [facility]. Screenin:15 Abuse screen: Denies threats or abuse. Nutritional screening: No deficits noted. aa5 Tuberculosis screening: No symptoms or risk factors identified. Fall Risk Fall in past 12 months (25 points). Secondary diagnosis (15 points) CVA, Blind. IV access (20 points). Ambulatory Aid- None/Bed Rest/Nurse Assist (0 pts). Mental Status- Oriented to own ability (0 pts). Total Lr Fall Scale indicates High Risk Score (45 or more points). Fall prevention measures have been instituted. Side Rails Up X 2 Placed Close to Nursing Station. Assessment: 11:37 General: Appears comfortable, Behavior is calm, cooperative. Pain: Complains of pain in aa5 right hand and sacrum Pain does not radiate. Pain currently is 10 out of 10 on a pain scale. Quality of pain is described as sharp, Is continuous. Neuro: Level of Consciousness is awake, alert, obeys commands, Oriented to person, place, time, situation, Mill Operator Helper are weak bilaterally Moves all extremities. Speech is normal, Facial symmetry appears normal, Pupils are PERRLA, Reports numbness and tingling to all 4 extremities, more prominent to left arm. . Cardiovascular: Heart tones S1 S2 present Rhythm is regular Dialysis shunt: in the left arm, with palpable thrill, with auscultated bruit, with no erythema, with no edema, no bleeding noted. Respiratory: Airway is patent Respiratory effort is even, unlabored, Respiratory pattern is regular, symmetrical, Breath sounds are clear bilaterally. GI: Abdomen is flat, non-distended, Bowel sounds present X 4 quads. Abd is soft and non tender X 4 quads. Reports nausea, Patient currently denies vomiting. : No signs and/or symptoms were reported regarding the genitourinary system. EENT: No signs and/or symptoms were reported regarding the EENT system. Derm: Skin is pink, warm \\T\\ dry. Multiple ulcerations noted to sacral area, no active bleeding noted, dry blood noted to underwear. Musculoskeletal: Range of motion: intact in all extremities. 11:54 Reassessment: Pt to CT via stretcher . aa5 12:05 Reassessment: Patient is alert, oriented x 3, equal unlabored respirations, skin aa5 warm/dry/pink. Pt back from CT . 12:05 Reassessment: Pt c/o pain and nausea, Dr. Canales notified. . aa5 13:35 Reassessment: Patient is alert, oriented x 3, equal unlabored respirations, skin aa5 warm/dry/pink. Pt repositioned to right side with some assistance. . 14:57 Reassessment: Patient is alert, oriented x 3, equal unlabored respirations, skin aa5 warm/dry/pink. Pt back from MRI.. 15:55 Reassessment: Patient is alert, oriented x 3, equal unlabored respirations, skin aa5 warm/dry/pink. 16:10 Reassessment: Awaiting ride home. aa5 Vital Signs: 11:37 BP 205 / 84; Pulse 81; Resp 16 S; Temp 99.1(O); Pulse Ox 99% on R/A; Pain 10/10; aa5 12:17 BP 194 / 70; Pulse 81; Resp 18 S; Pulse Ox 99% on R/A; aa5 13:35 BP 195 / 72; Pulse 75; Resp 16 S; Pulse Ox 98% on R/A; aa5 16:10 BP 189 / 70; Pulse 74; Resp 16 S; Pulse Ox 98% on R/A; aa5 NIH Stroke Scale Scores: 11:37 NIHSS Score: 6 aa5 ED Course: 11:37 Patient arrived in ED. rn 11:37 Russ Canales MD is Attending Physician. rn 11:37 Arm band placed on Patient placed in an exam room, on a stretcher. aa5 11:42 Rupali Ferraro, RN is Primary Nurse. aa5 11:46 Triage completed. aa5 11:53 Patient has correct armband on for positive identification. Placed in gown. Bed in low mh5 position. Call light in reach. Side rails up X2. Warm blanket given. corporate associate on. Pulse ox on. NIBP on. 11:53 EKG done, by ED staff, reviewed by Russ Canales MD. mh5 11:58 CT Head Brain wo Cont In Process Unspecified. EDMS 12:08 Initial lab(s) drawn, by me, sent to lab. Inserted saline lock: 22 gauge in right aa5 wrist, using aseptic technique. Blood collected. 14:44 MRI - Brain Wo Cont In Process Unspecified. EDMS 15:23 Len Alex MD is Referral Physician. rn 16:48 No provider procedures requiring assistance completed. IV discontinued, intact, iw bleeding controlled, No redness/swelling at site. Pressure dressing applied. Administered Medications: 13:36 Drug: morphine 4 mg Route: IVP; Site: right wrist; aa5 14:00 Follow up: Response: No adverse reaction; Pain is decreased aa5 13:36 Drug: Zofran (Ondansetron) 4 mg Route: IVP; Site: right wrist; aa5 14:00 Follow up: Response: No adverse reaction; Pain is decreased aa5 15:55 Drug: morphine 4 mg Route: IVP; Site: right wrist; aa5 16:00 Follow up: Response: No adverse reaction aa5 15:55 Drug: Zofran (Ondansetron) 4 mg Route: IVP; Site: right wrist; aa5 16:00 Follow up: Response: No adverse reaction aa5 Outcome: 15:24 Discharge ordered by MD. rn 16:47 Discharged to home via wheelchair, with family. iw 16:47 Condition: good 16:47 Discharge instructions given to patient, Instructed on discharge instructions, follow up and referral plans. Demonstrated understanding of instructions, follow-up care. 16:48 Patient left the ED. iw NIH Stroke Scale - NIH Stroke Score Date: 02/29/2020 Time: 11:37 Total Score = 6 1a. Level of Consciousness (LOC) - 0(Alert) 1b. Level of Consciousness (LOC) (Year \\T\\ Age) - 0(Both) 1c. LOC Commands (Open \\T\\ Closes Eyes/Security Officer) - 0(Both) 2. Best Gaze (Lateral Gaze Paresis) - 0(Normal) 3. Visual Field Loss - 3(Bilateral hemianopia) 4. Facial Palsy - 0(Normal) 5a. Left Arm: Motor (10-second hold) - 1(Drift) 5b. Right Arm: Motor (10-second hold) - 0(No drift) 6a. Left Leg: Motor (5-second hold - always test supine) - 1(Drift) 6b. Right Leg: Motor (5-second hold - always test supine) - 1(Drift) 7. Limb Ataxia (finger/nose \\T\\ heel/shetty - test with eyes open) - 0(Absent) 8. Sensory Loss (pinprick arms/legs/face) - 0(Normal) 9. Best Language: Aphasia (description/naming/reading) - 0(No aphasia) 10. Dysarthria (speech clarity - read or repeat words) - 0(Normal) 11. Extinction and Inattention (visual/tactile/auditory/spatial/personal) - 0(No abnormality) Initials: aa5 Signatures: Dispatcher [employer] Margarita Lorenz, ARMOND LEAHY iw Russ Canales MD MD rn Calderon, Audri, RN RN aa Ann Castillo [facility] Corrections: (The following items were deleted from the chart) 11:48 11:37 Acuity: TARUN 3 aa5 aa5 13:38 11:37 Derm: Skin is pink, warm \\T\\ dry. aa5 aa5
[2020-02-29 16:53] VITALS: TEMP 99.1
[2020-02-29 16:56] VITALS: BP 195/72; O2SAT 98
--- NOTE | 2020-03-01 07:25 | EKG ---
Test Date: 2020-02-29 Test Time: 11:51:39 Maker Up Folding: [place] MEASUREMENT RESULTS: Intervals: Rate: 79 MT: 140 QRSD: 84 QT: 434 QTc: 497 [place]: P: 79 MT: 140 QRS: 39 T: 84 INTERPRETIVE STATEMENTS: Normal sinus rhythm Possible Left atrial enlargement Prolonged QT Abnormal ECG Compared to ECG 02/08/2020 14:33:44 No significant changes Electronically Signed On 03-01-20 07:23:28 CDT by Elder Tejeda
== END 2020-02-29 16:48 | disposition home or self-care (01) ==
LOC: ER 11:34
DX: G89.29 Other chronic pain (principal); I10 Essential (primary) hypertension; Z85.850 Personal history of malignant neoplasm of thyroid; Z99.2 Dependence on renal dialysis
CPT/HCPCS: 93005; 85025; 80048; 36415; 85610; 85730; 70450; 70551; 96375; 96374; 99285; J2405 ×2

== ENCOUNTER 2020-03-12 03:05 | Observation (INO) | payer OTHER ==
--- OUTSIDE RECORDS SUMMARY | 2020-03-12 03:09 | XMS REPORT | Clinical Summary ---
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 ([facility]); Other specified hypothyroidism; Acute metabolic encephalopathy; DELMA (acute kidn ey injury) ([facility]) 07/15/2019 Travel 07/15/2019 Documentation Internal Medicine Negar Douglas MD after 03/12/2019 Family History Medical History Relation Name Comments [...] Taken Blood Pressure 163/76 07/18/2019 11:00 AM CARBONATION EQUIPMENT OPERATOR Pulse 85 07/18/2019 11:00 AM CARBONATION EQUIPMENT OPERATOR Temperature 36.5 C (97.7 F) 07/18/2019 11:00 AM CARBONATION EQUIPMENT OPERATOR Respiratory Rate 18 07/18/2019 11:00 AM CARBONATION EQUIPMENT OPERATOR Oxygen Saturation 98% 07/18/2019 11:00 AM CARBONATION EQUIPMENT OPERATOR Inhaled Oxygen Concentration - - Weight 98.8 kg (217 lb 13 oz) 07/16/2019 5:08 PM CARBONATION EQUIPMENT OPERATOR Height 162.6 cm (5' 4") 07/15/2019 9:22 PM CARBONATION EQUIPMENT OPERATOR Body Mass Index 37.39 07/16/2019 5:08 PM CARBONATION EQUIPMENT OPERATOR Plan of Treatment Health Maintenance Due Date [...] PROCEDURE - 07/21/2019 8:51 ENDOSCOPY SCAN AM CARBONATION EQUIPMENT OPERATOR RHYTHM STRIP - SCAN 07/21/2019 8:50 AM CARBONATION EQUIPMENT OPERATOR XR CHEST 1 VIEW STAT 07/18/2019 11:09 Results for this PORTABLE/BEDSIDE AM CARBONATION EQUIPMENT OPERATOR procedure a re in the results section. POCT-GLUCOSE METER Routine 07/18/2019 8:22 Resul ts for this AM CARBONATION EQUIPMENT OPERATOR procedure are i n the results section. CBC W/PLT COUNT & AUTO Routine 07/18/2019 4:37 R esults for this DIFFERENTIAL AM CARBONATION EQUIPMENT OPERATOR procedure are i n the results section. CBC W/PLT COUNT & AUTO Routine 07/18/2019 4:37 R esults for this DIFFERENTIAL AM CARBONATION EQUIPMENT OPERATOR procedure are i n the results section. PROTHROMBIN TIME/INR Routine 07/18/2019 4:37 Res ults for this AM CARBONATION EQUIPMENT OPERATOR procedure are i n the results section. PHOSPHORUS Routine 07/18/2019 4:37 Results for this AM CARBONATION EQUIPMENT OPERATOR procedure are i n the results section. MAGNESIUM Routine 07/18/2019 4:37 Results for this AM CARBONATION EQUIPMENT OPERATOR procedure are i n the results section. BASIC METABOLIC PANEL Routine 07/18/2019 4:37 Re sults for this (7) AM CARBONATION EQUIPMENT OPERATOR procedure are i n the results section. POCT-GLUCOSE METER Routine 07/17/2019 8:56 Resul ts for this PM CARBONATION EQUIPMENT OPERATOR procedure are i n the results section. POCT-GLUCOSE METER Routine 07/17/2019 5:07 Resul ts for this PM CARBONATION EQUIPMENT OPERATOR procedure are i n the results section. POCT-GLUCOSE METER Routine 07/17/2019 12:28 Resul ts for this PM CARBONATION EQUIPMENT OPERATOR procedure are i n the results section. SCREEN, URINE Routine 07/17/2019 11:36 Results for this AM CARBONATION EQUIPMENT OPERATOR procedure are i n the results section. POCT-GLUCOSE METER Routine 07/17/2019 7:18 Resul ts for this AM CARBONATION EQUIPMENT OPERATOR procedure are i n the results section. CBC W/PLT COUNT & AUTO Routine 07/17/2019 5:55 R esults for this DIFFERENTIAL AM CARBONATION EQUIPMENT OPERATOR procedure are i n the results section. CBC W/PLT COUNT & AUTO Routine 07/17/2019 5:55 R esults for this DIFFERENTIAL AM CARBONATION EQUIPMENT OPERATOR procedure are i n the results section. PROTHROMBIN TIME/INR Routine 07/17/2019 5:55 Res ults for this AM CARBONATION EQUIPMENT OPERATOR procedure are i n the results section. PHOSPHORUS Routine 07/17/2019 5:55 Results for this AM CARBONATION EQUIPMENT OPERATOR procedure are i n the results section. MAGNESIUM Routine 07/17/2019 5:55 Results for this AM CARBONATION EQUIPMENT OPERATOR procedure are i n the results section. BASIC METABOLIC PANEL Routine 07/17/2019 5:55 Re sults for this (7) AM CARBONATION EQUIPMENT OPERATOR procedure are i n the results section. MR BRAIN WITHOUT IV Routine 07/17/2019 12:54 Resu lts for this CONTRAST AM CARBONATION EQUIPMENT OPERATOR procedure are i n the results section. MRA NECK WITHOUT IV Routine 07/17/2019 12:54 Resu lts for this CONTRAST AM CARBONATION EQUIPMENT OPERATOR procedure are i n the results section. MRA HEAD WITHOUT IV Routine 07/17/2019 12:54 Resu lts for this CONTRAST AM CARBONATION EQUIPMENT OPERATOR procedure are i n the results section. ECHOCARDIOGRAM REPORT - 07/16/2019 9:20 SCAN PM CARBONATION EQUIPMENT OPERATOR POCT-GLUCOSE METER Routine 07/16/2019 9:03 Resul ts for this PM CARBONATION EQUIPMENT OPERATOR procedure are i n the results section. HEMODIALYSIS INPATIENT Routine 07/16/2019 5:23 R esults for this PM CARBONATION EQUIPMENT OPERATOR procedure are i n the results section. POCT-GLUCOSE METER Routine 07/16/2019 5:21 Resul ts for this PM CARBONATION EQUIPMENT OPERATOR procedure are i n the results section. HEPATITIS B SURFACE Routine 07/16/2019 1:41 Resu lts for this ANTIGEN PM CARBONATION EQUIPMENT OPERATOR procedure are i n the results section. POCT-GLUCOSE METER Routine 07/16/2019 1:01 Resul ts for this PM CARBONATION EQUIPMENT OPERATOR procedure are i n the results section. POCT-GLUCOSE METER Routine 07/16/2019 12:03 Resul ts for this PM CARBONATION EQUIPMENT OPERATOR procedure are i n the results section. 2D ECHO W/ DOPPLER Routine 07/16/2019 11:13 Resul ts for this (CW/PW/COLOR) AM CARBONATION EQUIPMENT OPERATOR procedure are in the results section. BASIC METABOLIC PANEL Routine 07/16/2019 8:40 Re sults for this (7) AM CARBONATION EQUIPMENT OPERATOR procedure are i n the results section. POCT-GLUCOSE METER Routine 07/16/2019 8:05 Resul ts for this AM CARBONATION EQUIPMENT OPERATOR procedure are i n the results section. ECG 12-LEAD STAT 07/16/2019 7:43 Results for this AM CARBONATION EQUIPMENT OPERATOR procedure are i n the results section. POCT-GLUCOSE METER Routine 07/16/2019 7:30 Resul ts for this AM CARBONATION EQUIPMENT OPERATOR procedure are i n the results section. XR CHEST 1 VIEW Routine 07/16/2019 7:04 Results for this PORTABLE/BEDSIDE AM CARBONATION EQUIPMENT OPERATOR procedure a re in the results section. POCT-GLUCOSE METER Routine 07/16/2019 5:21 Resul ts for this AM CARBONATION EQUIPMENT OPERATOR procedure are i n the results section. BASIC METABOLIC PANEL STAT 07/16/2019 5:14 Re sults for this (7) AM CARBONATION EQUIPMENT OPERATOR procedure are i n the results section. HEMOGLOBIN A1C Routine 07/16/2019 3:50 Results f or this AM CARBONATION EQUIPMENT OPERATOR procedure are i n the results section. CBC W/PLT COUNT & AUTO Routine 07/16/2019 3:49 R esults for this DIFFERENTIAL AM CARBONATION EQUIPMENT OPERATOR procedure are i n the results section. CBC W/PLT COUNT & AUTO Routine 07/16/2019 3:49 R esults for this DIFFERENTIAL AM CARBONATION EQUIPMENT OPERATOR procedure are i n the results section. LIPID PANEL Routine 07/16/2019 3:49 Results for this AM CARBONATION EQUIPMENT OPERATOR procedure are i n the results section. PHOSPHORUS Routine 07/16/2019 3:49 Results for this AM CARBONATION EQUIPMENT OPERATOR procedure are i n the results section. MAGNESIUM Routine 07/16/2019 3:49 Results for this AM CARBONATION EQUIPMENT OPERATOR procedure are i n the results section. HEPATIC FUNCTION PANEL Routine 07/16/2019 3:49 R esults for this AM CARBONATION EQUIPMENT OPERATOR procedure are i n the results section. BASIC METABOLIC PANEL Routine 07/16/2019 3:49 Re sults for this (7) AM CARBONATION EQUIPMENT OPERATOR procedure are i n the results section. HIV-1 ANTIGEN WITH Routine 07/16/2019 3:48 Resul ts for this HIV-1/2 ANTIBODY AM CARBONATION EQUIPMENT OPERATOR procedure a re in the results section. RPR Routine 07/16/2019 3:48 Results for this AM CARBONATION EQUIPMENT OPERATOR procedure are i n the results section. VITAMIN B12 AND FOLATE Routine 07/16/2019 3:48 R esults for this AM CARBONATION EQUIPMENT OPERATOR procedure are i n the results section. TSH/FREE T4 IF Routine 07/16/2019 3:48 Results f or this INDICATED AM CARBONATION EQUIPMENT OPERATOR procedure are i n the results section. PROTHROMBIN TIME/INR Routine 07/16/2019 3:48 Res ults for this AM CARBONATION EQUIPMENT OPERATOR procedure are i n the results section. POCT-GLUCOSE METER Routine 07/16/2019 3:34 Resul ts for this AM CARBONATION EQUIPMENT OPERATOR procedure are i n the results section. after 03/12/2019 Results EKG-SCANNED (07/21/2019 8:51 AM CARBONATION EQUIPMENT OPERATOR) Narrative Performed At This result has an attachment that is no t available. RHYTHM STRIP - SCAN (07/21/2019 8:50 AM CARBONATION EQUIPMENT OPERATOR) Narrative Performed At This result has an attachment that is no t available. XR chest 1 view portable / bedside (07/18/2019 11:09 AM CARBONATION EQUIPMENT OPERATOR)Only the most recent of2 resultswithin the time period is included. Specimen Narrative Performed At FINAL REPORT GE [facility] RAD, CHEST, 1 VIEW, NON DEPT INDICATION: r/o pneumonia COMPARISON: July 16, 2019 FINDINGS: Portable frontal view of the c hest. IMPRESSION: Support Lines: Stable left IJ dual-lumen central venous catheter. Lungs and pleura: Lungs are clear. No ef fusion. No pneumothorax. Heart and mediastinum: Stable contours. Additional findings: None. Signed: JR Mccollum Robert MD Report Verified Date/Time:07/18/2019 11:27:35 Reading Location: [facility] Reading Room Procedure Note Interface, External Ris In - 07/18/2019 11:29 AM CARBONATION EQUIPMENT OPERATOR FINAL REPORT RAD, CHEST, 1 VIEW, NON [...] Verified Date/Time: 07/18/2019 1 1:27:35 [facility] Performing Organization Address City/State/Zipcode Phone Number GE Limundo POC-Glucose meter (07/18/2019 8:22 AM CARBONATION EQUIPMENT OPERATOR)Only the most recent of13 results within the time period is included. POC-Glucose Meter 126 (H)Comment: : TESTED 70 - 110 mg/dL [facility]ENTERPerfint HealthcareSHRINERS [facility] [address] [facility] NT[facility]RIST[facility], [id number]: Nursing Home Administrator/Biodiesel Production Associate ID = [id number] for Baldomero Kuo Specimen Blood Performing Organization Address City/State/Zipcode Phone Number [facility] [address] [place] [address] CENTER CBC with platelet count + automated diff (07/18/2019 4:37 AM CARBONATION EQUIPMENT OPERATOR)Only the most recent of3 resultswithin the time period is included. WBC 13.0 (H) 3.5 - 10.5 K/L [facility] RBC 3.80 (L) 3.93 - 5.22 M/L [facility] Hemoglobin 11.3 11.2 - 15.7 GM/DL [facility] Hematocrit 35.2 34.1 - 44.9 % [facility] MCV 92.6 79.4 - 94.8 fL [facility] MCH 29.7 25.6 - 32.[address] [facility] MCHC 32.1 (L) 32.2 - 35.5 GM/DL [facility] RDW 13.6 11.7 - 14.4 % [facility] Platelets 233 150 - 450 K/CU MM [facility] MPV 9.5 9.4 - 12.[address] [facility] nRBC 0 0 - 0 /100 WBC [facility] % Neutros 70 % [facility] % Lymphs 20 % [facility] % Monos 7 % [facility] % Eos 2 % [facility] % Baso 1 % [facility] # Neutros 9.09 (H) 1.56 - 6.13 K/L [facility] # Lymphs 2.65 1.18 - 3.74 K/L [facility] # Monos 0.93 (H) 0.24 - 0.36 K/L [facility] # Eos 0.24 0.04 - 0.36 K/L [facility] # Baso 0.07 0.01 - 0.08 K/L [facility] Immature Granulocytes-Relative 0 0 - 1 % C [facility] Specimen Blood Performing Organization Address City/[facility] Hospitalcode Phone Number [address] [address] CENTER Prothrombin time/INR (07/18/2019 4:37 AM CARBONATION EQUIPMENT OPERATOR)Only the most recent of3 results within the time period is included. Protime 12.2 11.9 - 14.2 seconds [facility] INR 1.0 <=5.9 [facility] Specimen Blood Narrative Performed At Effective 01/12/2019: PT Reference Range [facility] Change New: 11.9-14.2Previous: 11.7-14.7 RECOMMENDED COUMADIN/WARFARIN INR THERAPY RANGES STANDARD DOSE: 2.0-3.0Includes: PROPHYLAXIS for venous thrombosis, systemic embolization; TREATMENT for venous thrombosis and/or pulmonary embolus. HIGH RISK: Target INR is 2.5-3.5 for patients wiht mechanical heart valves. Performing Organization Address City/[facility] Hospitalcode Phone Number [address] [address] CENTER Phosphorus (07/18/2019 4:37 AM CARBONATION EQUIPMENT OPERATOR)Only the most recent of3 resultswithin the time period is included. Phosphorus 4.6 2.3 - 4.7 mg/dL [facility] Specimen Blood Performing Organization Address City/[facility]/Zipcode Phone Number [address] [phone] CENTER Magnesium (07/18/2019 4:37 AM CARBONATION EQUIPMENT OPERATOR)Only the most recent of3 resultswithin the time period is included. Magnesium 2.0 1.6 - 2.6 mg/dL [facility] Specimen Blood Performing Organization Address City/[facility]/Zipcode Phone Number [address] [phone] [place] Basic metabolic panel (07/18/2019 4:37 AM CARBONATION EQUIPMENT OPERATOR)Only the most recent of5 results within the time period is included. Sodium 134 (L) 136 - 145 meq/L [facility] Potassium 5.0 3.5 - 5.1 meq/L [facility] Chloride 103 98 - 107 meq/L [facility] CO2 25 22 - 29 meq/L [facility] BUN 28 (H) 7 - 21 mg/dL [facility] Creatinine 5.40 (H) 0.57 - 1.25 mg/dL [facility] Glucose 146 (H) 70 - 105 mg/dL [facility] Calcium 8.8 8.4 - 10.2 mg/dL [facility] EGFR 9Comment: ESTIMATED GFR IS mL/min/1.73 sq m [facility] NOT ACCURATE CREATININE RI DICAL CENTER CLEARANCE IN PREDICTING GLOMERULAR FILTRATION RATE. ESTIMATED GFR IS NOT APPLICABLE FOR DIALYSIS PATIENTS. Specimen Blood Performing Organization Address [facility] Phone Number [address] [address] [place] Screen, urine (07/17/2019 11:36 AM CARBONATION EQUIPMENT OPERATOR) Preg Test, Ur Negative [facility] Specimen Urine Performing Organization Address [facility]/Zipcode Phone Number [place] [phone] [place] [address] [place] MR brain without IV contrast (07/17/2019 12:54 AM CARBONATION EQUIPMENT OPERATOR) Specimen Narrative Performed At FINAL REPORT GE [...] External Ris In - 07/17/2019 4:57 AM CARBONATION EQUIPMENT OPERATOR FINAL REPORT MR, BRAIN, WITHOUT CONTRAST, MR, [...] 3:28:33 Performing Organization Address City/State/Zipcode Phone Number [employer] MR MRA neck without contrast (07/17/2019 12:54 AM CARBONATION EQUIPMENT OPERATOR) Specimen Narrative Performed At FINAL REPORT [employer] MR, BRAIN, WITHOUT CONTRAST, MR, MRA, NE [...] External Ris In - 07/17/2019 4:57 AM CARBONATION EQUIPMENT OPERATOR FINAL REPORT MR, BRAIN, WITHOUT CONTRAST, MR, [...] 3:28:33 Performing Organization Address City/State/Zipcode Phone Number [facility] MR MRA head without contrast (07/17/2019 12:54 AM CARBONATION EQUIPMENT OPERATOR) Specimen Narrative Performed At FINAL REPORT ERNESTINA [...] External Ris In - 07/17/2019 4:57 AM CARBONATION EQUIPMENT OPERATOR FINAL REPORT MR, BRAIN, WITHOUT CONTRAST, MR, [...] 3:28:33 Performing Organization Address City/State/Zipcode Phone Number [employer] ECHOCARDIOGRAM REPORT - SCAN (07/16/2019 9:20 PM CARBONATION EQUIPMENT OPERATOR) Narrative Performed At This result has an attachment that is no t available. HEMODIALYSIS INPATIENT (07/16/2019 5:23 PM CARBONATION EQUIPMENT OPERATOR) Narrative Performed At Jeff Mcduffie RN 06/195:24 [...] Hepatitis B surface antigen (07/16/2019 1:41 PM CARBONATION EQUIPMENT OPERATOR) HBsAg Screen Nonreactive Nonreactive [facility] Specimen Blood Performing Organization Address City/State/Zipcode Phone Number [facility] [address] [place] [address] CENTER 2D Echo W/Doppler(CW/PW/Color) (07/16/2019 11:13 AM CARBONATION EQUIPMENT OPERATOR) Ejection Fraction [facility] ECHO HEAR TLAB [facility] Specimen Narrative Performed At Transthoracic Echocardiography Report (T TE) [facility] ECHO HEARTLAB [facility] Demographics Patient Peyman Burton of Study07/16/2019 Gender Female Visit [id number] Race Unknown [id number] Number Date of 1975 [facility] Phys[facility] Age 43 year(s) SonographerDaja Arthur, [facility] Marketing Content Coordinator Yanna McdonaldInterpreting Marcella Yanez MD [place] Physician [...] External Ris In - 07/16/2019 2:11 PM CARBONATION EQUIPMENT OPERATOR Transthoracic Echocardiography Report (TTE) Demographics Patient Name ARCHANA WOO Date of St udy 07/16/2019 Gender Female Visit Number [id number] Race Unknown Room [facility] r [id number] Number Date of 1975 Referring Arvin Ann Physician Age 43 year(s) Sonographe r Daja Arthur, [facility] Marketing Content Coordinator Yanna Blanchardi MD Oscar Dupont Physician Procedure [...] CPACS ECG 12 lead (07/16/2019 7:43 AM CARBONATION EQUIPMENT OPERATOR) Specimen Narrative Performed At Ventricular Rate 87 BPM Wilocity Atrial Rate 87 BPM P-R Interval 136 ms QRS Duration 72 ms Q-T Interval 380 ms QTC Calculation(Bazett) 457 ms P Pinon 68 degrees R Pinon 17 degrees T Pinon 65 degrees Normal sinus rhythm Normal ECG When compared with ECG of 19-MAR-2017 15 :16, QT has shortened Confirmed by MD BROCK, LAKSHMI ([id number]) on 07/18/2019 7:35:43 AM Procedure Note Interface, External Ris In - 07/18/2019 7:35 AM CARBONATION EQUIPMENT OPERATOR Ventricular Rate 87 BPM Atrial Rate 87 BPM P-R Interval 136 ms QRS Duration 72 ms Q-T Interval 380 ms QTC Calculation(Bazett) 457 ms P Pinon 68 degrees R Pinon 17 degrees T Pinon 65 degrees Normal sinus rhythm Normal ECG When compared with ECG of 19-MAR-2017 15 :16, QT has shortened Confirmed by MD GUTIÉRREZ YOCHAI ([id number]) on 07/18/2019 7:35:43 AM Performing Organization Address City/[facility] Phone Number [facility] Hemoglobin A1c (07/16/2019 3:50 AM CARBONATION EQUIPMENT OPERATOR) Hemoglobin A1C 9.5 (H) 4.3 - 6.1 % [facility] Specimen Blood Performing Organization Address City/[facility] Hospital[facility]i Phone Number [address] [address] [place] Hepatic function panel (07/16/2019 3:49 AM CARBONATION EQUIPMENT OPERATOR) Protein, Total 6.3 6.0 - 8.3 gm/dL [facility] Albumin 3.0 (L) 3.5 - 5.0 g/dL [facility] Total Bilirubin 0.4 0.2 - 1.2 mg/dL [facility] Bilirubin, Direct 0.2 0.1 - 0.5 mg/dL [facility] Alkaline Phosphatase 182 (H) 40 - 150 U/L [facility] AST 63 (H) 5 - 34 U/L [facility] ALT 99 (H) 6 - 55 U/L [facility] Specimen Blood Performing Organization Address City/[facility] Phone Number [address] [address] CENTER Lipid panel (07/16/2019 3:49 AM CARBONATION EQUIPMENT OPERATOR) Triglycerides 100 mg/dL [facility] Cholesterol 177 mg/dL [facility] HDL 48 mg/dL [facility] LDL Calculated 109 mg/dL [facility] Specimen Blood Narrative Performed At Triglyceride Reference Range: [facility] Low Risk <150 [id number] High Risk 200-499 Very High Risk>=500 Cholesterol Reference Range: Low Risk <200 [id number] High Risk>240 HDL Cholesterol Reference Range: Low Risk >=60 High Risk <40 LDL Cholesterol Reference Range: Optimal<100 Near [id number] Very High >=190 Performing Organization Address [facility] Hospital[facility] Phone Number [address] [address] [place] Vitamin B12 and Folate (07/16/2019 3:48 AM CARBONATION EQUIPMENT OPERATOR) Vitamin B12 525 213 - 816 pg/mL [facility] Folate 6.5 (L) >=7.0 ng/mL [facility] Specimen Blood Performing Organization Address [facility] Phone Number [address] [address] CENTER TSH/Free T4 If Indicated (07/16/2019 3:48 AM CARBONATION EQUIPMENT OPERATOR) TSH 0.87 0.35 - 4.94 uIU/mL [facility] Specimen Blood Performing Organization Address [facility] Phone Number [address] [address] CENTER HIV-1 Antigen with HIV-1/2 Antibody (07/16/2019 3:48 AM CARBONATION EQUIPMENT OPERATOR) HIV-1 Antigen with HIV 1&2 Nonreactive Nonreactive [facility] CENTER Specimen Blood Performing Organization Address City/[facility]/Zipcode Phone Number [facility] [address] [place], [place] [phone] CENTER RPR (07/16/2019 3:48 AM CARBONATION EQUIPMENT OPERATOR) RPR Nonreactive Nonreactive [facility] Specimen Blood Performing Organization Address City/[facility]/Zipcode Phone Number [facility] [address] [place] [address] CENTER after 03/12/2019 Insurance Payer Benefit Plan / Subscriber ID Type Phone Address Group [facility] MEDICARE xxxxxxxxx MEDICARE MGD CARE HMO MEDICAID - MEDICAID [facility] xxxxxxxxx Medicaid Contracted MGD CARE PLAN Advance Directives For more information, please contact:[address] [phone] Code Status Date Activated Date Inactivated Comments Full Code 07/16/2019 12:46 AM 07/18/2019 4:56 PM This code status was determined by: Patient Full Code 03/14/2017 8:30 PM 03/20/2017 12:11 PM This code status was determined by: Patient
--- OUTSIDE RECORDS SUMMARY | 2020-03-12 03:12 | XMS REPORT | Continuity of Care Document ---
:1975 Author Organization [facility] t Address [address] [place] [address] Care Team Providers Name Role Phone Stella REYNOSO Attending Clinician Seth REYNOSO Attending Clinician Graham Schultz MD Attending Clinician Raphael REYNOSO Attending Clinician STELLA Attending Clinician Unavailable LYN EDWARDS Attending Clinician Unavailable Graham SCHULTZ Admitting Clinician Unavailable LYN EDWARDS Admitting Clinician Unavailable Payers Payer Name Policy Policy Number Effective Expiration Source Type Date Date [facility] - xxxxxxxxx [facility] MEDICARE MGD CAREUNITED L ukes - MEDICARE HMOxxxxxxxxx [facility] MEDICAID - MEDICAID MGD xxxxxxxxx [facility] CAREMCD COMM STAR [facility] - PLANxxxxxxxxxMedicaid [facility] Contracted Center Problems Condition Condition Condition Status Onset Resolution Last Treating Co mments Source Name Details Category Date Date Treatment Clinician Date Left sided Left sided Disease Active 2018-[address] numbness numbness 09-15 [facility] - 00:[facility]: Medical 00 [place] ESRD on ESRD on Disease Active 2018-[address] [facility] dialysis dialysis 09-15 [facility] - 00:[facility]: Medical 00 [place] Proteinuri Proteinuri Disease Active [facility] [...] 03-16 [facility] - encephalop encephalop 00:00: Or dical athy athy 00 Center Cerebrovas Cerebrovas [...] 03-15 Carolann kes - phageal phageal 00:00: [facility] reflux reflux 00 [place] disease) disease) COPD COPD Disease Active [facility] ([facility]ronic (chronic 03-15 [facility] - obstructiv obstructiv 00:00: Or dical e e 00 Center pulmonary pulmonary [...] 7-30 Carolann kes - y y 00:00: [place] [address] Center Allergies, Adverse Reactions, Alerts Allergy Allergy Status Severity Reaction(s) Onset Inactive Treating Comm ents Source Name Type Date Date Clinician No Known DA Active [facility]ie 08-22 [place] 00:00: [address] Family History Family Member Diagnosis Comments Start Date Stop Date Source Natural father Hypertension [facility] Natural mother Diabetes [facility] Natural mother Kidney disease [facility] Social History Social Habit Start Date Stop Date Quantity Comments Source Sex Assigned At [facility] Smoking Status Start Date Stop Date Source Current every day smoker 2019-07-16 00:00:00 [facility] Medications Ordered Filled Start Stop Current [...] for 30 days. cyclobenzap 2018-08 Yes 2.5mg Q.[id number] Take 2.[address] rine 0-16 [id number] mg by [facility] - (FLEXERIL) 00:00: 3D mouth 3 Medi ghassan 5 MG tablet 00 (three) Cente r times daily. DULoxetine 2018-08 Yes 30mg QD Take [address] (CYMBALTA) 0-16 by mouth [facility] - 30 MG 00:00: daily. Medical capsule [address] [place] [address] famotidine 2018-08 Yes 20mg QD Take 20 [...] Center needed for Anxiety. busPIRone Yes 10mg Q.24106309 Take [address] (BUSPAR) 10 7-30 [id number] by mouth 3 [facility] - MG tablet [...] Source Systolic blood 2019-07-18 11:00:00 163 mm[Hg] [facility] Diastolic blood 2019-07-18 11:00:00 76 mm[Hg] [facility] S t [facility] pressure [facility] Heart rate 2019-07-18 11:00:00 85 /min [facility] Body temperature 2019-07-18 11:00:00 36.5 Mallory [facility] Respiratory rate 2019-07-18 11:00:00 18 /min [facility] Oxygen saturation in 2019-07-18 11:00:00 98 /min [facility] - Arterial blood by Medical Ce nter Pulse oximetry Body weight Measured 2019-07-16 17:08:00 98.8 kg [facility] BMI 2019-07-16 17:08:00 37.39 kg/m2 [facility] Body height 2019-07-15 21:22:00 162.6 cm [facility] Procedures Procedure Date / Time Performing Clinician Source Performed REPORT OF PROCEDURE - 2019-07-21 08:51:04 Provider, Default [facility] ENDOSCOPY SCAN Scanning [facility] RHYTHM STRIP - SCAN 2019-07-21 08:50:54 Provider, Default [facility] XR CHEST 1 VIEW 2019-07-18 11:09:00 Ann Lim [facility] PORTABLE/BEDSIDE [facility] Center POCT-GLUCOSE METER 2019-07-18 08:22:00 Ann Lim [facility] BASIC METABOLIC PANEL (7) 2019-07-18 04:37:00 [facility] MAGNESIUM 2019-07-18 04:37:00 [facility] PHOSPHORUS 2019-07-18 04:37:00 [facility] PROTHROMBIN TIME/INR 2019-07-18 04:37:00 [facility] CBC W/PLT COUNT & AUTO 2019-07-18 04:37:00 [facility] POCT-GLUCOSE METER 2019-07-17 20:56:00 Shania Schultz [facility] POCT-GLUCOSE METER 2019-07-17 17:07:00 Shania Schultz [facility] POCT-GLUCOSE METER 2019-07-17 12:28:00 Shania Schultz [facility] SCREEN, URINE 2019-07-17 11:36:00 Ann Cook [facility] POCT-GLUCOSE METER 2019-07-17 07:18:00 Shania Schultz [facility] BASIC METABOLIC PANEL (7) 2019-07-17 05:55:00 [facility] MAGNESIUM 2019-07-17 05:55:00 [facility] PHOSPHORUS 2019-07-17 05:55:00 [facility] PROTHROMBIN TIME/INR 2019-07-17 05:55:00 [facility] CBC W/PLT COUNT & AUTO 2019-07-17 05:55:00 [facility] MRA HEAD WITHOUT IV 2019-07-17 00:54:00 [facility] MRA NECK WITHOUT IV 2019-07-17 00:54:00 [facility] MR BRAIN WITHOUT IV 2019-07-17 00:54:00 [facility] ECHOCARDIOGRAM REPORT - 2019-07-16 21:20:18 Provider, Default [facility] POCT-GLUCOSE METER 2019-07-16 21:03:00 Shania Schultz [facility] HEMODIALYSIS INPATIENT 2019-07-16 17:23:[address] [facility] POCT-GLUCOSE METER 2019-07-16 17:21:00 Shania Schultz [facility] HEPATITIS B SURFACE 2019-07-16 13:41:00 Ashwin Cole [facility] POCT-GLUCOSE METER 2019-07-16 13:01:00 Shania Schultz [facility] POCT-GLUCOSE METER 2019-07-16 12:03:00 Shania Schultz [facility] 2D ECHO W/ DOPPLER 2019-07-16 11:13:59 [facility] (CW/PW/COLOR) [facility] BASIC METABOLIC PANEL (7) 2019-07-16 08:40:00 [facility] POCT-GLUCOSE METER 2019-07-16 08:05:00 Shania Schultz [facility] ECG 12-LEAD 2019-07-16 07:43:10 [facility] POCT-GLUCOSE METER 2019-07-16 07:30:[facility] 2019-07-16 07:04:00 [facility] PORTABLE/BEDSIDE [facility] [place] POCT-GLUCOSE METER 2019-07-16 05:21:00 [facility] BASIC METABOLIC PANEL (7) 2019-07-16 05:14:00 [facility] HEMOGLOBIN A1C 2019-07-16 03:50:00 [facility] BASIC METABOLIC PANEL (7) 2019-07-16 03:49:00 [facility] HEPATIC FUNCTION PANEL 2019-07-16 03:49:00 [facility] MAGNESIUM 2019-07-16 03:49:00 [facility] PHOSPHORUS 2019-07-16 03:49:00 [facility] LIPID PANEL 2019-07-16 03:49:00 [facility] CBC W/PLT COUNT & AUTO 2019-07-16 03:49:00 [facility] PROTHROMBIN TIME/INR 2019-07-16 03:48:00 [facility] TSH/FREE T4 IF INDICATED 2019-07-16 03:48:00 [facility] VITAMIN B12 AND FOLATE 2019-07-16 03:48:00 [facility] RPR 2019-07-16 03:48:00 [facility] HIV-1 ANTIGEN WITH HIV-1/2 2019-07-16 03:48:[address] [facility] POCT-GLUCOSE METER 2019-07-16 03:34:00 Arvin Ann [facility] [id number] 2019-05-18 00:00:00 ENCPL [id number] 2019-05-18 00:00:00 ENCPL [id number] 2019-05-18 00:00:00 ENCPL [id number] 2019-05-18 00:00:00 ENCPL Plan of Care Planned Activity Planned Date Details Comments Source Future Scheduled 2020-04-17 INFLUENZA VACCINE (#1) [facility]00 [code = INFLUENZA Medical Ce nter VACCINE (#1)] Future Scheduled 2019-10-[address] Carol[facility] - Test 00:00:00 measurement Medical Center (procedure) [code = 08396350] Future Scheduled 2018-03-17 Urine screening for [facility] Test 00:00:00 protein (procedure) Medical Center [code = 077756597] Future Scheduled 2017-08-[address] [facility] - Test 00:00:00 WELLNESS (YEAR 2 or Medical Center FIRST YEAR if no IPPE) [code = MEDICARE ANNUAL WELLNESS (YEAR 2 or FIRST YEAR if no IPPE)] Future Scheduled 1995-10-[address] [facility] - Test 00:00:00 [facility] cervix (procedure) [code = 319381383] Future Scheduled [address] DIABETIC EYE EXAM [facility] - Test 00:00:00 [code = DIABETIC EYE Medical Center EXAM] Future Scheduled [address] [facility] - Test 00:00:00 examination Medical Center (regime/therapy) [code = 956220538] Future Scheduled [address] [facility] - Test 00:00:00 2-64 YEARS AT RISK (1 Medica l Center of 3 - PCV13) [code = PNEUMOCOCCAL VACCINE 2-64 YEARS AT RISK (1 of 3 - PCV13)] Encounters Start End Encounter Admission Attending Care Care Encounter Source Date/Time Date/Time Type Type Clinicians Facility Department ID 2019-04-12 Inpatient [facility] [id number] 13:57:46 Results Test [...] to HBV infection.~~~~~ ~~~~~~~~~~~~~~~~~~~~~~~~~~~~~~~~~~~~~~~~~~~~~~~~~~~~~~~ AG HEPATITIS B [id number] 18:16:00 Test Item Value Reference Range Interpretation Comments AG HEPATITIS B SURFACE (test code = NEGATIVE NONREACTIVE HBSAG) HIV 12 AB [id number] 18:16:00 Test Item Value Reference Range Interpretation Comments HIV 1 2 COMBO AG/AB SCREEN AB/AG NON REACTIVE NONREACTIVE (test code = [id number]) HEPATITIS B SURF AB, [id number] 17:51:00 Test Item Value Reference Range Interpretation Comments HEPATITIS B SURF AB, QUANT (test code mIU/mL = HBSABQ) AG HEPATITIS B [id number] 17:51:00 Test Item Value Reference Range Interpretation Comments AG HEPATITIS B SURFACE (test code = NEGATIVE NONREACTIVE HBSAG) HIV 12 AB [id number] 17:51:00 Test Item Value Reference Range Interpretation Comments HIV 1 2 COMBO AG/AB SCREEN AB/AG NON REACTIVE NONREACTIVE (test code = [id number]) HEPATITIS B SURF AB, [id number] 17:39:00 Test Item Value Reference Range Interpretation Comments HEPATITIS B SURF AB, QUANT (test code mIU/mL = HBSABQ) AG HEPATITIS B [id number] 17:39:00 Test Item Value Reference Range Interpretation Comments AG HEPATITIS B SURFACE (test code = NEGATIVE NONREACTIVE HBSAG) HIV 12 AB [id number] 17:39:00 Test Item Value Reference Range Interpretation Comments HIV 1 2 COMBO AG/AB SCREEN (test code = NONREACTIVE PLD97SCDPJ) GLUCOSE BEDSIDE [id number] 12:00:00 Test Item Value Reference Range Interpretation Comments GLUCOSE BEDSIDE TESTING (test code 136 MG/DL 60-99 H = GLUBED) GLUCOSE BEDSIDE [id number] 21:08:00 Test Item Value Reference Range Interpretation Comments GLUCOSE BEDSIDE TESTING (test code = 84 MG/DL 60-99 N GLUBED) BASIC METABOLIC [id number] 16:40:00 Test Item Value Reference Range Interpretation [...] 9.0 MG/DL 8.4-10.2 N CA) HCG SERUM [id number] 16:40:00 Test Item Value Reference Range Interpretation Comments HCG SERUM QUAL (test code = HCGQL) NEGATIVE NEGATIVE A PROTHROMBIN [id number] 16:32:00 Test Item Value Reference Range Interpretation [...] sunshine embolism. 3.0 - 4.5 Comments to Superintendent Division: PREOPPTT [id number] 16:32:00 Test Item Value Reference Range Interpretation Comments PTT ACTIVATED (test code = APTT) 30.3 SECONDS 22.0-33.0 N Comments to Superintendent Division: PREOPBASIC METABOLIC [id number] 16:32:00 Test Item Value Reference Range Interpretation [...] code = CA) MG/DL 8.7-9.7 HCG SERUM [id number] 16:32:00 Test Item Value Reference Range Interpretation Comments HCG SERUM QUAL (test code = HCGQL) NEGATIVE NEGATIVE A BASIC METABOLIC [id number] 16:31:00 Test Item Value Reference Range Interpretation [...] code = CA) MG/DL 8.7-9.7 HCG SERUM [id number] 16:31:00 Test Item Value Reference Range Interpretation Comments HCG SERUM QUAL (test code = HCGQL) NEGATIVE CBC W/AUTO [id number] 16:25:00 Test Item Value Reference Range Interpretation [...] 0.00 K/mm3 0.0-0.1 N NRBC#) GLUCOSE BEDSIDE [id number] 18:41:00 Test Item Value Reference Range Interpretation Comments GLUCOSE BEDSIDE TESTING (test code = 83 MG/DL 60-99 N GLUBED) BASIC METABOLIC [id number] 15:04:00 Test Item Value Reference Range Interpretation [...] 9.1 MG/DL 8.4-10.2 N CA) BASIC METABOLIC [id number] 15:00:00 Test Item Value Reference Range Interpretation [...] code = CA) MG/DL 8.7-9.7 HCG SERUM [id number] 14:59:00 Test Item Value Reference Range Interpretation Comments HCG SERUM QUAL (test code = HCGQL) NEGATIVE NEGATIVE A PROTHROMBIN [id number] 14:56:00 Test Item Value Reference Range Interpretation [...] syste sunshine embolism. 3.0 - 4.5 PTT [id number] 14:56:00 Test Item Value Reference Range Interpretation Comments PTT ACTIVATED (test code = APTT) 27.9 SECONDS 22.0-33.0 N CBC W/AUTO [id number] 14:43:00 Test Item Value Reference Range Interpretation [...] N NRBC#) RAD, CHEST, 1 VIEW, NON [id number] 11:27:00Reason for exam:->r/o pneumoniaShould this be performed [...] Room XR chest 1 view portable / [id number] 11:27:00 Interface, External Ris In - 07/18/2019 [...] [facility] Radiology Reading Room [facility]-Glucose [id number] 08:34:00 Test Item Value Reference Range Interpretation Comments POC-Glucose Meter (test 126 mg/dL 70-110 H : TE STED AT [facility] code = 1538) [address] [facility], 770 30: Data Entry Assistant/Techni tammy ID = [id number] for Lenora Kuo onregulo Lab Interpretation (test Abnormal code = 68884-1) [facility]-GLUCOSE [id number] 08:34:00 Test Item Value Reference Range Interpretation Comments POC-GLUCOSE METER 126 mg/dL 70-110 H : TESTED A T [facility] 6720 (BEAKER) (test code = [place], 1538) [address]: Data Entry Assistant/Techni tammy ID = [id number] for Baldomero Carney ECG 12 [id number] 07:35:45Interface, External Ris In - 07/18/2019 7:35 AM CSTVentricular Rate 87 BPMAtrial Rate 87 BPMP-R Interval 136 msQRS Duration 72 msQ-T Interval 380 msQTC Calculation(Bazett) 457 msP [place] 68 degreesR [place] 17 degreesT [place] 65 degreesNormal sinus rhythmNormal ECGWhen compared with ECG of 19-MAR-2017 15:16,QT has shortenedConfirmed by MD BROCK, LAKSHMI ([id number]) on 07/18/2019 7:35:43 [facility] metabolic [id number] 06:56:00 Test Item Value Reference Range Interpretation [...] Calcium (test code = 8.8 mg/dL 8.4-10.2 87870-0) EGFR (test code = 9 mL/min/1.73 [place] [address]-2) NOT ACCURATE CREATININE CLEARANCE IN PREDICTING GLOMERULAR FILTRATION RATE . ESTIMATED GFR I S NOT APPLICABLE FOR DIALYSIS PATIEN TS. Lab Interpretation Abnormal (test code = 15776-5) [facility] METABOLIC [id number] 06:56:00 Test Item Value Reference Range Interpretation [...] S NOT APPLICABLE FOR DIALYSIS PATIEN TS. [id number] 06:45:00 Test Item Value Reference Range Interpretation Comments Magnesium (test code = 12609-1) 2.0 mg/dL 1.6-2.6 Lab Interpretation (test code = Normal 12329-8) [facility] 06:45:00 Test Item Value Reference Range Interpretation Comments Phosphorus (test code = 2777-1) 4.6 mg/dL 2.3-4.7 Lab Interpretation (test code = Normal 59883-5) [facility]2019-12-02 06:45:00 Test Item Value Reference Range Interpretation Comments PHOSPHORUS (BEAKER) (test code = 4.6 mg/dL 2.3-4.7 604) [id number] 06:45:00 Test Item Value Reference Range Interpretation Comments MAGNESIUM (BEAKER) (test code = 2.0 mg/dL 1.6-2.6 627) CBC with platelet count + automated [id number] 05:35:00 Test Item Value Reference Range Interpretation [...] 450 K/CU MM MPV (test code = 53961-7) 9.5 fL 9.4-12.3 nRBC (test code = [...] 2801) Lab Interpretation (test code = Abnormal 98033-2) [facility] W/PLT COUNT & AUTO [id number] 05:35:00 Test Item Value Reference Range Interpretation [...] PERCENT (BEAKER) (test code = 2801) Prothrombin time/[id number] 05:24:00 Test Item Value Reference Range Interpretation [...] valves. Lab Interpretation Normal (test code = 34528-7) [facility]/[id number] 05:24:00 Test Item Value Reference Range Interpretation [...] is2.5-3.5 for patients wiht mechanical heart valves.POCT-GLUCOSE [id number] 21:08:00 Test Item Value Reference Range Interpretation Comments POC-GLUCOSE METER 191 mg/dL 70-110 H : TESTED A T [facility] 6720 (BEAKER) (test code = [facility], 1538) [address]: Data Entry Assistant/Techni tammy ID = [id number] for Keith Quintero POCT-GLUCOSE [id number] 17:20:00 Test Item Value Reference Range Interpretation Comments POC-GLUCOSE METER 168 mg/dL 70-110 H : TESTED A T [facility] 6720 (BEAKER) (test code = [facility] [employer] [facility], 1538) [address]: Data Entry Assistant/Techni tammy ID = [id number] for HU NT, MAVIS POCT-GLUCOSE [id number] 12:49:00 Test Item Value Reference Range Interpretation Comments POC-GLUCOSE METER 221 mg/dL 70-110 H : TESTED A T [facility] 6720 (BEAKER) (test code = [facility] [employer] [facility], 1538) 737[address]: Data Entry Assistant/Techni tammy ID = [id number] for HU NT, MAVIS Screen, [id number] 11:54:00 Test Item Value Reference Range Interpretation Comments Preg Test, Ur (test code = 2112-1) Negative [facility] SCREEN, [id number] 11:54:00 Test Item Value Reference Range Interpretation Comments TEST URINE (BEAKER) (test Negative code = 583) POCT-GLUCOSE [id number] 09:11:00 Test Item Value Reference Range Interpretation Comments POC-GLUCOSE METER 112 mg/dL 70-110 H : TESTED A T [facility] 6720 (BEAKER) (test code = [place], 1538) [address]: Data Entry Assistant/Techni tammy ID = [id number] for MAVIS GARRIDO BASIC METABOLIC [id number] 06:50:00 Test Item Value Reference Range Interpretation [...] S NOT APPLICABLE FOR DIALYSIS PATIEN TS. [id number] 06:38:00 Test Item Value Reference Range Interpretation Comments PHOSPHORUS (BEAKER) (test code = 3.9 mg/dL 2.3-4.7 604) [id number] 06:38:00 Test Item Value Reference Range Interpretation Comments MAGNESIUM (BEAKER) (test code = 1.9 mg/dL 1.6-2.6 627) PROTHROMBIN TIME/[id number] 06:12:00 Test Item Value Reference Range Interpretation [...] mechanical heart valves.CBC W/PLT COUNT & AUTO [id number] 06:06:00 Test Item Value Reference Range Interpretation [...] 0-1 PERCENT (BEAKER) (test code = 2801) [id number] 04:27:00 Test Item Value Reference Range Interpretation Comments RPR (test code = 51518-4) Nonreactive Nonreactive Lab Interpretation (test code = Normal 75986-7) [id number] 04:27:00 Test Item Value Reference Range Interpretation Comments RPR SCREEN (BEAKER) (test code = Nonreactive Nonreactive 420) MR, MRA, BRAIN, WITHOUT [id number] 03:28:00Reason for exam:- >StrokeWhat is the patient's [...] 07/17/2019 03:28:33 MR, MRA, NECK, WITHOUT IV [id number] 03:28:00FINAL REPORT MR, BRAIN, WITHOUT CONTRAST, MR, [...] Verified Date/Time: 07/17/2019 03:28:33 MR, BRAIN, WITHOUT [id number] 03:28:00 Reason for exam:->StrokeWhat is the patient's [...] Date/Time: 07/17/2019 03:28:33 MR MRA head without [id number] 03:28:00 Interface, External Ris In - 07/17/2019 [...] [facility] without [id number] 03:28:00Interface, External Ris In - 07/17/2019 4:57 [...] [facility] without IV [id number] 03:28:00Interface, External Ris In - 07/17/2019 4:57 [...] Signed: Yg Conley Verified Date/Time: 07/17/2019 03:28:33 [facility] [id number] 21:16:00 Test Item Value Reference Range Interpretation Comments POC-GLUCOSE METER 143 mg/dL 70-110 H : TESTED A T [facility] 6720 (BEAKER) (test code = [employer] [facility], 1538) 21005: Data Entry Assistant/Techni tammy ID = [id number] for JUSTIN BLAKEJANELL REYES POCT-GLUCOSE [id number] 17:33:00 Test Item Value Reference Range Interpretation Comments POC-GLUCOSE METER 108 mg/dL 70-110 : TESTED A T [facility] 6720 (BEAKER) (test code = [employer] R [facility], 1538) 40[address]: Data Entry Assistant/Techni tammy ID = [id number] for TAVON DUVALL POCT-GLUCOSE [id number] 17:25:00 Test Item Value Reference Range Interpretation Comments POC-GLUCOSE METER 155 mg/dL 70-110 H : TESTED A T [facility] 6720 (BEAKER) (test code = [employer] R [facility], 1538) 880[address]: Data Entry Assistant/Techni tammy ID = [id number] for SIMON CHO HEMODIALYSIS [id number] 17:23:31Tavon Mcduffie RN 07/16/2019 5:24 PMVerified HD [...] Lab Results Component Value Date HEPBSAG Nonreactive 07/16/2019[facility] B surface [id number] 14:30:00 Test Item Value Reference Range Interpretation Comments HBsAg Screen (test code = 5195-3) Nonreactive Nonreactive Lab Interpretation (test code = Normal 79870-9) [facility] B SURFACE [id number] 14:30:00 Test Item Value Reference Range Interpretation Comments HEPATITIS B SURFACE ANTIGEN (2) Nonreactive Nonreactive (BEAKER) (test code = 2585) 2D Echo W/Doppler(CW/PW/Color)2019-07-16 14:11:04Ejection FractionSLEH ECHO HEARTLAB MKCKESSON CPACSInterface, External Ris In - 07/16/2019 2:11 PM C STTransthoracic Echocardiography Report (TTE) Demographics Patient Name GIGI CONROY Date of Study 07/16/2019 Gender Female Visit Number [id number] Race Unknown Room Number 7605 Number Date of 1975 Referring Arvin Ann Physician Age 43 year(s) Mining Consultant Daja Arthur, [facility] Machine Stone Polisher Yanna Mcdonald Interpreting MD Oscar Silver Physician [...] 1.57 cm Aorta Ao Root S of [place].: 2.55 cm Doppler/Quantitative Measurements Mitral Valve MV [...] Velocity: 2.31 m/s TR Gradient: 21.42 mmHgCH[facility] CenterPO[facility]- [facility]SE [id number] 12:17:00 Test Item Value Reference Range Interpretation Comments POC-GLUCOSE METER 146 mg/dL 70-110 H : TESTED A T [facility] 6720 (BEAKER) (test code = [facility] [place], 1538) [address]: Data Entry Assistant/Techni tammy ID = [id number] for MAVIS GARRIDO BASIC METABOLIC [id number] 09:26:00 Test Item Value Reference Range Interpretation [...] NOT APPLICABLE FOR DIALYSIS PATIEN TS. POCT-GLUCOSE [id number] 08:27:00 Test Item Value Reference Range Interpretation Comments POC-GLUCOSE METER 106 mg/dL 70-110 : TESTED A T [facility] 6720 (BEAKER) (test code = [facility] [employer] [facility], 1538) 27[address]: Data Entry Assistant/Techni tammy ID = [id number] for HARRISON GENEVAFILI SIMON POCT-GLUCOSE [id number] 07:46:00 Test Item Value Reference Range Interpretation Comments POC-GLUCOSE METER 171 mg/dL 70-110 H : TESTED A T [facility] 6720 (BEAKER) (test code [facility], = 1538) 58839: Data Entry Assistant/Techni tammy ID = [id number] for YASMINE VO, CHEST, 1 VIEW, NON [id number] 07:36:00Reason for exam:- >baselineShould this be performed [...] MDRort Verified Date/Time: 07/16/2019 07:36:01 Reading Location: [facility] B1 C013Y CT Body Reading Room Hemoglobin [id number] 06:42:00 Test Item Value Reference Range Interpretation Comments Hemoglobin A1C (test code = 4548-4) 9.5 % 4.3-6.1 H Lab Interpretation (test code = Abnormal 98439-6) [facility] [id number] 06:42:00 Test Item Value Reference Range Interpretation Comments HEMOGLOBIN A1C (BEAKER) (test code = 9.5 % 4.3-6.1 H 368) BASIC METABOLIC [id number] 06:27:00 Test Item Value Reference Range Interpretation [...] DIALYSIS PATIEN TS. HIV-1 Antigen with HIV-1/2 [id number] 05:52:00 Test Item Value Reference Range Interpretation Comments HIV-1 Antigen with HIV 1&2 Nonreactive Nonreactive Antibody (test code = 44855-7) Lab Interpretation (test code = Normal 94240-7) [facility] HIV-1/2 [id number] 05:52:00 Test Item Value Reference Range Interpretation Comments HIV-1 ANTIGEN WITH HIV 1\T\2 Nonreactive Nonreactive ANTIBODY (2) ([facility]) (test code = 2586) POCT-GLUCOSE [id number] 05:38:00 Test Item Value Reference Range Interpretation Comments POC-GLUCOSE METER 420 mg/dL 70-110 HH : Notified RN/MD: TESTED (TAINA) (test code AT [facility] [address] = 1538) [facility], [facility] 30: Data Entry Assistant/Techni tammy ID = [id number] for HUGH Farah ANHMICHELLE TSH/Free T4 If [id number] 05:11:00 Test Item Value Reference Range Interpretation Comments TSH (test code = 04583-9) 0.87 0.35- 4.94 uIU/mL Lab Interpretation (test code = Normal 57421-5) [facility] and [id number] 05:11:00 Test Item Value Reference Range Interpretation Comments Vitamin B12 (test code = 2132-9) 525 pg/mL 213-816 Folate (test code = 2284-8) 6.5 ng/mL >=7.0 L Lab Interpretation (test code = Abnormal 63646-5) [facility] T4 IF [id number] 05:11:00 Test Item Value Reference Range Interpretation Comments THYROID STIMULATING HORMONE 0.87 uIU/mL 0.35-4.94 (BEAKER) (test code = 772) VITAMIN B12 AND [id number] 05:11:00 Test Item Value Reference Range Interpretation Comments VITAMIN B12 (BEAKER) (test code = 525 pg/mL 213-816 774) FOLATE (BEAKER) (test code = 362) 6.5 ng/mL >=7.0 L BASIC METABOLIC [id number] 04:57:00 Test Item Value Reference Range Interpretation [...] NOT APPLICABLE FOR DIALYSIS PATIEN TS. Lipid [id number] 04:47:00 Test Item Value Reference Range Interpretation Comments Triglycerides (test 100 mg/dL code = 2571-8) Cholesterol (test code 177 mg/dL = 2093-3) HDL (test code = 48 mg/dL 5-9) LDL Calculated (test 109 mg/dL code = 14817-0) YAKELIN (test code = YAKELIN) Triglyceride Reference Range: Low Risk <150 Borderline 150-199 High Risk 200-499 Very High Risk >=500 Cholesterol Reference Range: Low Risk <200 Borderline 200-239 High Risk >240 HDL Cholesterol Reference Range: Low Risk >=60 High Risk <40 LDL Cholesterol Reference Range: Optimal <100 Near Optimal 100-129 Borderline 130-159 High 160-189 Very High >=190 [facility]Hepatic function [id number] 04:47:00 Test Item Value Reference Range Interpretation Comments Protein, Total (test code = 2885-2) 6.3 6.0- 8.3 gm/dL Albumin (test code = 53871-0) 3.0 g/dL 3.5-5 L Total Bilirubin (test code = 0.4 mg/dL 0.2-1.2 1974-09) Bilirubin, Direct (test code = 0.2 mg/dL 0.1-0.5 1968-02) Alkaline Phosphatase (test code = 182 U/L 40-150 H 6768-6) AST (test code = 1920-8) 63 U/L 5-34 H ALT (test code = 1742-6) 99 U/L 6-55 H Lab Interpretation (test code = Abnormal 95426-3) [facility]2019-[facility] 04:47:00 Test Item Value Reference Range Interpretation Comments PHOSPHORUS (BEAKER) (test code = 5.5 mg/dL 2.3-4.7 H 604) [id number] 04:47:00 Test Item Value Reference Range Interpretation Comments MAGNESIUM (BEAKER) (test code = 2.0 mg/dL 1.6-2.6 627) LIPID [id number] 04:47:00 Test Item Value Reference Range Interpretation [...] 130-159 High 160-189 Very High >=190HEPATIC FUNCTION [id number] 04:47:00 Test Item Value Reference Range Interpretation [...] = 99 U/L 6-55 H 347) PROTHROMBIN [id number] 04:11:00 Test Item Value Reference Range Interpretation [...] mechanical heart valves.CBC W/PLT COUNT & AUTO [id number] 04:03:00 Test Item Value Reference Range Interpretation [...] PERCENT (BEAKER) (test code = 2801) POCT-GLUCOSE [id number] 03:47:00 Test Item Value Reference Range Interpretation Comments POC-GLUCOSE METER > mg/dL 70-110 HH : Notified RN/MD: TESTED (BEAKER) (test code = AT [facility] [address] 2738) [place], [address] 30: Data Entry Assistant/Techni tammy ID = [id number] for CATARINA Z, NADINA FACTOR 5 LEIDEN PCR (THROMBOTIC RISK)2017-03-24 19:24:00 Test Item Value Reference Range Interpretation Comments FACTOR V LEIDEN Negative for the R506Q ([facility]) (test code = (Factor V Leiden) 718) mutation [id number] Martínez Wang MD ([facility]) (test code = (electronic signature) 4714) This test is a genotyping assay which [...] developed and its performance characteristics determined bythe [facility] Pathology Department, Section of Molecular Pathology. It has not been cleared or approved by the U.S. Food and Drug Administration (FDA), since FDA approval is not requ ired for clinical use of the test. Validation was done as required by the Clinical Laboratory Improvement Amendments of 1988.POCT-GLUCOSE [id number] 07:28:00 Test Item Value Reference Range Interpretation Comments POC-GLUCOSE METER 200 mg/dL 70-110 H TESTED AT [place] [address] ([facility]) (test code = [facility] 1538) [address] POCT-GLUCOSE [id number] 21:18:00 Test Item Value Reference Range Interpretation Comments POC-GLUCOSE METER 211 mg/dL 70-110 H TESTED AT [place] [address] ([facility]) (test code = [facility] 1538) [address] PROTEIN, RANDOM [id number] 19:43:00 Test Item Value Reference Range Interpretation Comments PROTEIN, URINE ([facility]) (test code 286 mg/dL 0-14 H = 1569) CREATININE, RANDOM [id number] 18:27:00 Test Item Value Reference Range Interpretation Comments CREATININE URINE ([facility]) (test 29.3 mg/dL code = 375) Reference Range: No NormalsDILUTE SHIRA VIPER VENOM (DRVV)2017-03-19 12:47:00 Test Item Value Reference Range Interpretation Comments PROTIME (BEAKER) (test 11.3 seconds 11.7-14.7 L code = 759) INR ([facility]) (test code 0.8 <=5.9 = 370) PARTIAL THROMBOPLASTIN 28.0 seconds 22.5-36.0 TIME (AKER) (test code = 760) DRVV INTERPRETATION Normal DRVV Results (BEAKER) (test code = 8206) DRVV INTERPRETATION Normal Hexagonal (BEAKER) (test code = Phospholipid 678594) [id number] Martínez Wang MD ([facility]) (test code = (electronic 2610) signature) DRVV SCREEN RATIO 0.84 <1.20 (AKER) (test code = 5345) Effective 12/20/2013: Test Method ChangeDRVV Screen Ratio, DRVV 1/1 Screen Ratio, DRVV Confirm Ratio,DRVV Normalized Ratio Reference Range: <1.2Protime Reference Range ChangeNew: 11.7-14.7 Previous: 9.8-12.0PTT Reference Range ChangeNew: 22.5-36.0 Previous: 25.8-34.5URINE [id number] 11:40:00 Test Item Value Reference Range Interpretation Comments CULTURE ([facility]) (test 20-29,000 col/mL skin code = 1095) lei POCT-GLUCOSE [id number] 08:33:00 Test Item Value Reference Range Interpretation Comments POC-GLUCOSE METER 293 mg/dL 70-110 H TESTED AT [facility] 6720 ([facility]) (test code = [address] [place] 1538) [address] VITAMIN D, [id number] 07:49:00 Test Item Value Reference Range Interpretation Comments VITAMIN D 25-OH ([facility]) (test code = < ng/mL 13.0-47.8 L 2764) CBC W/PLT COUNT & AUTO [id number] 05:59:00 Test Item Value Reference Range Interpretation [...] (BEAKER) (test code = 2801) BASIC METABOLIC [id number] 05:38:00 Test Item Value Reference Range Interpretation [...] mg/dL 8.4-10.2 (test code = 697) EGFR ([facility]) (test 27 mL/min/1.73 ESTIMA NHAN GFR IS code = 1092) sq m NOT ACCURATE CREATININE CLEARANCE IN PREDICTING GLOMERULAR FILTRATION RATE . ESTIMATED GFR I S NOT APPLICABLE FOR DIALYSIS PATIEN TS. [id number] 05:37:00 Test Item Value Reference Range Interpretation Comments PHOSPHORUS (BENANCI) (test code = 4.1 mg/dL 2.3-4.7 604) [id number] 05:37:00 Test Item Value Reference Range Interpretation Comments MAGNESIUM (BEAKER) (test code = 1.7 mg/dL 1.6-2.6 627) PTH, [id number] 05:34:00 Test Item Value Reference Range Interpretation Comments PARATHYROID HORMONE INTACT 57.2 pg/mL 8.5-72.5 (NANCI) (test code = 577) Effective 07/04/2014: Reference Range ChangeNew: 8.5-72.5 Previous: 15.0-90.0 CARDIOLIPIN ANTIBODIES, IGG AND [id number] 22:36:00 Test Item Value Reference Range Interpretation Comments ANTICARDIOLIPIN IGG ANTIBODY (TAINA) < GPL (test code = 712) ANTICARDIOLIPIN IGM ANTIBODY ([facility]) 2.8 MPL (test code = 713) Anticardiolipin IgG Result Interpretation:NEG: <20 GPL; U/mlPOS: >/=20 GPL; U/mlAnticardiolipin IgM Result Interpretation:NEG: <20 MPL; U/mlPOS: >/=20 MPL; U/mlPOCT-GLUCOSE [id number] 21:25:00 Test Item Value Reference Range Interpretation Comments POC-GLUCOSE METER 198 mg/dL 70-110 H TESTED AT [facility] 6720 ([facility]) (test code = [place] 1538) [address] POCT-GLUCOSE [id number] 16:29:00 Test Item Value Reference Range Interpretation Comments POC-GLUCOSE METER 296 mg/dL 70-110 H TESTED AT [facility] 6720 ([facility]) (test code = [address] [place] 1538) [address] ANTI-NUCLEAR ANTIBODY (MARY)2017-03-18 15:30:00 Test Item Value Reference Range Interpretation Comments ANTI-NUCLEAR ANTIBODY (MARY) (BEAKER) Negative Negative (test code = 418) HEXAGONAL [id number] 13:21:00 Test Item Value Reference Range Interpretation Comments HEXAGONAL PHOSPHOLIPID (BEAKER) Negative (test code = 1790) POCT-GLUCOSE [id number] 12:15:00 Test Item Value Reference Range Interpretation Comments POC-GLUCOSE METER 140 mg/dL 70-110 H TESTED AT [place] [address] ([facility]) (test code = [facility] Isabel [facility] 1538) [address] PROTEIN C [id number] 11:44:00 Test Item Value Reference Range Interpretation Comments PROTEIN C ACTIVITY (BEAKER) (test 155.0 % 70.0-130.0 H code = 582) Effective 12/20/2013: Reference Range Change-Adult onlyNew: 70.0-130.0 Previous: 70.0-140.0See Protein C Antigen.ANTITHROMBIN [id number] 11:43:00 Test Item Value Reference Range Interpretation Comments ANTITHROMBIN III ACTIVITY (BEAKER) 87.0 % 80.0-120.0 (test code = 711) Effective 12/20/2013: Reference Range Change-Adult onlyNew: 80.0-120.0 Previous: 90.0-128.0POCT-GLUCOSE [id number] 08:17:00 Test Item Value Reference Range Interpretation Comments POC-GLUCOSE METER 107 mg/dL 70-110 TESTED AT [facility] 6720 (BEAKER) (test code = [facility] Isabel [facility] 1538) [address] BASIC METABOLIC [id number] 06:32:00 Test Item Value Reference Range Interpretation [...] PATIEN TS. CBC W/PLT COUNT & AUTO [id number] 05:56:00 Test Item Value Reference Range Interpretation [...] PERCENT (BEAKER) (test code = 2801) POCT-GLUCOSE [id number] 04:32:00 Test Item Value Reference Range Interpretation Comments POC-GLUCOSE METER 107 mg/dL 70-110 TESTED AT [place] [address] ([facility]) (test code = [address] [facility] 1538) [address] POCT-GLUCOSE [id number] 22:21:00 Test Item Value Reference Range Interpretation Comments POC-GLUCOSE METER 118 mg/dL 70-110 H TESTED AT [place] [address] ([facility]) (test code = [address] [facility] 1538) [address] POCT-GLUCOSE [id number] 21:22:00 Test Item Value Reference Range Interpretation Comments POC-GLUCOSE METER 52 mg/dL 70-110 L Notified Isabel Ro MD/TESTED AT ([facility]) (test code = [address]) [facility] [address] MICROALBUMIN, RANDOM [id number] 17:57:00 Test Item Value Reference Range Interpretation Comments MICROALBUMIN URINE (BEAKER) (test > mg/dL code = 1794) Reference Range: No NormalsURINALYSIS W/ [id number] 17:36:00 Test Item Value Reference Range Interpretation [...] 516) SOURCE(BEAKER) (test code = Urine, Voided 3689) SCREEN, [id number] 17:36:00 Test Item Value Reference Range Interpretation Comments TEST URINE (BEAKER) (test Negative code = 583) CREATININE, RANDOM [id number] 17:35:00 Test Item Value Reference Range Interpretation Comments CREATININE URINE (BEAKER) (test 33.9 mg/dL code = 375) Reference Range: No NormalsSODIUM, RANDOM [id number] 17:35:00 Test Item Value Reference Range Interpretation Comments SODIUM URINE (BEAKER) (test code = 63 meq/L 243) Reference Range: No NormalsPOCT-GLUCOSE [id number] 17:34:00 Test Item Value Reference Range Interpretation Comments POC-GLUCOSE METER 118 mg/dL 70-110 H TESTED AT [facility] 6720 ([facility]) (test code = [place] [facility] 1538) [address] POCT-GLUCOSE [id number] 13:28:00 Test Item Value Reference Range Interpretation Comments POC-GLUCOSE METER 71 mg/dL 70-110 TESTED AT [facility] 67[address] ([facility]) (test code = [address] [facility] [address]38) POCT-GLUCOSE [id number] 10:37:00 Test Item Value Reference Range Interpretation Comments POC-GLUCOSE METER 144 mg/dL 70-110 H TESTED AT [facility] 6720 (BEAKER) (test code = [place] [place] 1538) [address] POCT-GLUCOSE [id number] 07:18:00 Test Item Value Reference Range Interpretation Comments POC-GLUCOSE METER 60 mg/dL 70-110 L TESTED AT [facility] 67[address] (BEAKER) (test code = [place] [address] 1538) CBC W/PLT COUNT & AUTO [id number] 05:51:00 Test Item Value Reference Range Interpretation [...] (BEAKER) (test code = 2801) BASIC METABOLIC [id number] 05:51:00 Test Item Value Reference Range Interpretation [...] NOT APPLICABLE FOR DIALYSIS PATIEN TS. POCT-GLUCOSE [id number] 21:41:00 Test Item Value Reference Range Interpretation Comments POC-GLUCOSE METER 287 mg/dL 70-110 H TESTED AT [facility] [address] (BEAKER) (test code = [address] [place] [address]38) [address] BASIC METABOLIC [id number] 12:35:00 Test Item Value Reference Range Interpretation [...] report . CBC W/PLT COUNT & AUTO [id number] 04:54:00 Test Item Value Reference Range Interpretation [...] 0-1 PERCENT (BEAKER) (test code = 2801) [id number] 20:17:00 Test Item Value Reference Range Interpretation Comments RPR SCREEN (BEAKER) (test code = Nonreactive Nonreactive 420) POCT-GLUCOSE [id number] 18:09:00 Test Item Value Reference Range Interpretation Comments POC-GLUCOSE METER 215 mg/dL 70-110 H TESTED AT [facility] 67[address] (BEAKER) (test code = [place] [place] 1538) [address] CBC W/PLT COUNT & AUTO [id number] 11:54:00 Test Item Value Reference Range Interpretation [...] (BEAKER) (test code = Normal 762) SEDIMENTATION [id number] 10:27:00 Test Item Value Reference Range Interpretation Comments SEDIMENTATION RATE, ERYTHROCYTE 79 mm/HR 0-20 H (BEAKER) (test code = 766) HEMOGLOBIN [id number] 09:33:00 Test Item Value Reference Range Interpretation Comments HEMOGLOBIN A1C (BEAKER) (test code = 9.8 % 4.3-6.1 H 368) VITAMIN [id number] 09:14:00 Test Item Value Reference Range Interpretation Comments VITAMIN B12 (BEAKER) (test code = 1790 pg/mL 213-816 H 774) TSH/FREE T4 IF [id number] 09:14:00 Test Item Value Reference Range Interpretation Comments THYROID STIMULATING HORMONE 1.08 uIU/mL 0.35-4.94 (BEAKER) (test code = 772) BASIC METABOLIC [id number] 08:52:00 Test Item Value Reference Range Interpretation [...] DATA TO CALCULA TE ESTIMATED GFR. FastingLIPID [id number] 08:51:00 Test Item Value Reference Range Interpretation [...] High 160-189 Very High >=190 FastingHCG, QUANTITATIVE, [id number] 01:43:00 Test Item Value Reference Range Interpretation Comments GONADOTROPIN, CHORIONIC (HCG) QUANT < mIU/mL 0-10 (BEAKER) (test code = 649) Non- Females: <10 mIU/mL Females: Gestation Age Reference Range(mIU/mL) 0.2-1 Week 5-50 1-2 Weeks 50-500 2-3 Weeks 100-5,000 3-4Weeks 500-10,000 4-5 Weeks 1,000-50,000 5-6 Weeks 10,000-100,000 6-8 Weeks 15,000-200,000 2-3 Months 10,000-100,000COMPREHENSIVE METABOLIC [id number] 21:57:00 Test Item Value Reference Range Interpretation [...] 5-34 (test code = 353) ALT (SGPT) ([facility]) 14 U/L 6-55 (test code = 347) EGFR ([facility]) (test mL/min/1.73 INSUFFIC IENT code = 1092) sq m CLINICAL DATA T O CALCULATE ESTIM ATED GFR. Unit CollectPOCT-GLUCOSE [id number] 21:50:00 Test Item Value Reference Range Interpretation Comments POC-GLUCOSE METER 278 mg/dL 70-110 H TESTED AT [facility] 67 ([facility]) (test code = [place] [place] 1538) [address]
[2020-03-12 04:02] LABS: Protime INR 0.87
[2020-03-12 04:03] LABS: Absolute Lymphocytes (CBC) 1.3 K/uL (0.7-4.9)
[2020-03-12 04:08] LABS: Basophils % 0.9 % (0-1.3); Hematocrit 39.5 % (36.0-45.0); Lymphocytes % 12.8 % (15.3-44.8); MPV 9.1 fL (7.6-11.3); RBC Red Blood Cell Count 4.18 M/uL (3.86-4.86)
[2020-03-12 04:18] LABS: Bilirubin Direct 0.2 mg/dL (0-0.2); Bilirubin Total 0.6 mg/dL (0.2-1.0); Magnesium 2.9 mg/dL (1.8-2.4); Potassium 4.5 mmol/L (3.5-5.1); Protein, Total 7.4 g/dL (6.4-8.2); Troponin (Emerg Dept Use Only) 0.02 ng/mL (0.0-0.045)
--- NOTE | 2020-03-12 04:45 | EDPHYS ---
Physician Documentation [facility] Name: Archana Woo Age: 44 yrs Sex: Female : 1975 Arrival Date: 03/12/2020 Time: 03:07 Bed 4 Private MD: ED Physician Cristian Mcclure PATTERN DESIGNER: 03/12 05:08 lmp unknown mg2 Historical: - Allergies: 03:13 No Known Allergies; jd3 - Home Meds: 03:13 calcitriol 0.25 mcg Oral cap 1 cap [Active]; docusate sodium 100 mg Oral cap 1 cap once jd3 daily [Active]; furosemide 80 mg Oral tab 1 tab 2 times per day [Active]; hydralazine 25 mg Oral tab 1 tab 4 times per day [Active]; Hydrocodone-Acetaminophen Oral [Active]; Lantus 100 unit/mL Sub-Q soln 100 unit/mL [Active]; - PMHx: 03:13 BLIND; CVA; Depression; Diabetes - NIDDM; GERD; Hyperlipidemia; Hypertension; left arm jd3 paralysis; neuropathy; THYROID CANCER; TIA; dialysis W \T\ F; - PSHx: 03:13 Cholecystectomy; ; dialysis site to left arm; jd3 - Immunization history:: Adult Immunizations up to date. - Social history:: Smoking status: Patient reports the use of cigarette tobacco products, denies chronic smoking, but will smoke occasionally. Vital Signs: 03:13 BP 181 / 90; Pulse 81; Resp 19 S; Temp 98.3(O); Pulse Ox 100% on R/A; Weight 58.97 kg jd3 (R); Height 5 ft. 4 in. (162.56 cm) (R); Pain 8/10; 04:44 BP 225 / 91; Pulse 81; Resp 18; Pulse Ox 100% on R/A; mg2 06:03 BP 180 / 73; Pulse 74; Resp 18; Pulse Ox 100% on R/A; mg2 06:45 BP 178 / 72; Pulse 75; Resp 18; Pulse Ox 100% on R/A; mg2 03:13 Body Mass Index 22.31 (58.97 kg, 162.56 cm) jd3 MDM: 03:08 Patient medically screened. 03/12 03:09 Order name: Basic Metabolic Panel; Complete Time: 04:25 03/12 04:26 Interpretation: Normal except: NA 134; GLUC 301; BUN 75; CO2 20; GFR 4; CA 8.3. 03/12 03:09 Order name: CBC with Diff; Complete Time: 04:25 03/12 04:26 Interpretation: Normal except: WBC 10.0; LYM% 12.8; SAI% 80.1. 03/12 03:09 Order name: LFT's; Complete Time: 04:25 03/12 04:26 Interpretation: Normal except: AST 12; ALB 3.0; GLOB 4.4; A/G 0.7. 03/12 03:09 Order name: Magnesium; Complete Time: 04:25 03/12 04:26 Interpretation: Normal except: MG 2.9. 03/12 03:09 Order name: NT PRO-BNP; Complete Time: 04:25 03/12 04:26 Interpretation: Normal except: NT PRO-BNP 37668. 03/12 03:09 Order name: PT-INR; Complete Time: 04:25 03/12 04:26 Interpretation: Within normal limits: PT 10.3. 03/12 03:09 Order name: Troponin (emerg Dept Use Only); Complete Time: 04:25 03/12 04:26 Interpretation: Within normal limits: TROPED 0.02. 03/12 03:09 Order name: XRAY Chest (1 view) 03/12 03:09 Order name: EKG; Complete Time: 03:10 03/12 03:09 Order name: Cardiac monitoring; Complete Time: 03:39 03/12 06:12 Order name: CONS Physician Consult EDKY 03/12 03:09 Order name: EKG - Nurse/Tech; Complete Time: 03:39 03/12 03:09 Order name: IV Saline Lock; Complete Time: 03:39 03/12 03:09 Order name: Labs collected and sent; Complete Time: 03:39 03/12 03:09 Order name: O2 Per Protocol; Complete Time: 03:39 03/12 03:09 Order name: O2 Sat Monitoring; Complete Time: 03:39 EC:41 Rate is 86 beats/min. Rhythm is regular. QRS [place] is Normal. GA interval is normal. QRS tw4 interval is normal. QT interval is prolonged. No Q waves. T waves are Normal. No ST changes noted. Clinical impression: NSR w/ Non-specific ST/T Changes. Interpreted by me. Reviewed by me. Administered Medications: 04:43 Drug: morphine 4 mg Route: IVP; Site: right hand; mg2 06:14 Follow up: Response: No adverse reaction mg2 04:43 Drug: Zofran (Ondansetron) 4 mg Route: IVP; Site: right hand; mg2 06:14 Follow up: Response: No adverse reaction mg2 05:08 Drug: Labetalol 20 mg Route: IVP; Infused Over: 2 mins; Site: right hand; mg2 06:14 Follow up: Response: Blood pressure is lowered mg2 Disposition: 03/12/20 04:44 Hospitalization ordered by Giovani Clarke for Observation. Preliminary diagnosis are Chest pain, unspecified, Chronic kidney disease, unspecified. - Bed requested for Telemetry/MedSurg (observation). - Status is Observation. iw - Condition is Stable. - Problem is new. - Symptoms have improved. Addendum: 03/28/2020 05:58 Addendum: HPI: Pt is a 44 year old female with a history of ESRD, HTN comes into the t w4 emergency department with complaint of chest pain. Pt states that the pain is substernal does not radiate and does not have any alleviating or aggravating factors related to the patient's pain. Pt complains of mild SOB. Pt states that she has missed 2 episodes of her dialysis.. Addendum: ROS: Positive for chest pain, negative for MILLS All other systems negative . Addendum: PE: general well developed well nourished female in NAD HEENT: PERRLA, EOMI Neck: supple Resp: CTAB, nl breath sounds bilaterally CV: RRR, nl S1, S2 Abdomen: soft, nontender, nondistended Ext: nontender, nondistended Neuro: alert and oriented times three, CN grossly intact strength and sensation grossly intact. Signatures: Dispatcher [employer] EDMS Margarita Wheatley RN RN iw Tiffany Vasquez RN RN Jaspal Lucero RN RN jd3 Wadley, Terrence, MD MD tw4 Gardose, Kelechi, RN RN mg2 Corrections: (The following items were deleted from the chart) 03/12 06:44 04:44 Hospitalization Ordered by Giovani Clarke for Observation. Preliminary diagnosis cg is Chest pain, unspecified; Chronic kidney disease, unspecified. Bed requested for Telemetry/MedSurg (observation). Status is Observation. Condition is Stable. Problem is new. Symptoms have improved. tw4 07:50 06:44 03/12/2020 04:44 Hospitalization Ordered by Giovani Clarke for Observation. iw Preliminary diagnosis is Chest pain, unspecified; Chronic kidney disease, unspecified. Bed requested for Telemetry/MedSurg (observation). Status is Observation. Condition is Stable. Problem is new. Symptoms have improved. cg
--- NOTE | 2020-03-12 04:45 | ER ---
Nurse's Notes [facility] Name: Archana Woo Age: 44 yrs Sex: Female : 1975 Arrival Date: 03/12/2020 Time: 03:07 Bed 4 Private MD: Diagnosis: Chest pain, unspecified;Chronic kidney disease, unspecified Presentation: 03/12 03:09 Chief complaint: EMS states: "she is reporting chest pain that is causing shortness of jd3 breath all day. she says this has been happening all week just off and on. she is a dialysis pt and reports she has missed her last 2 days of dialysis which is Thursday and Thursday.". Coronavirus screen: Proceed with normal triage. Ebola Screen: Patient negative for fever greater than or equal to 101.5 degrees Fahrenheit, and additional compatible Ebola Virus Disease symptoms. Initial Sepsis Screen: Does the patient meet any 2 criteria? No. Patient's initial sepsis screen is negative. Does the patient have a suspected source of infection? No. Patient's initial sepsis screen is negative. Risk Assessment: Do you want to hurt yourself or someone else? Patient reports no desire to harm self or others. Onset of symptoms was March 12, 2020. 03:09 Method Of Arrival: EMS: [facility] jd3 03:09 Acuity: TARUN 3 jd3 BROWN STOCK WASHER: 05:08 lmp unknown mg2 Historical: - Allergies: 03:13 No Known Allergies; jd3 - Home Meds: 03:13 calcitriol 0.25 mcg Oral cap 1 cap [Active]; docusate sodium 100 mg Oral cap 1 cap once jd3 daily [Active]; furosemide 80 mg Oral tab 1 tab 2 times per day [Active]; hydralazine 25 mg Oral tab 1 tab 4 times per day [Active]; Hydrocodone-Acetaminophen Oral [Active]; Lantus 100 unit/mL Sub-Q soln 100 unit/mL [Active]; - PMHx: 03:13 BLIND; CVA; Depression; Diabetes - NIDDM; GERD; Hyperlipidemia; Hypertension; left arm jd3 paralysis; neuropathy; THYROID CANCER; TIA; dialysis W \\T\\ F; - PSHx: 03:13 Cholecystectomy; ; dialysis site to left arm; jd3 - Immunization history:: Adult Immunizations up to date. - Social history:: Smoking status: Patient reports the use of cigarette tobacco products, denies chronic smoking, but will smoke occasionally. Screenin:41 Abuse screen: Denies threats or abuse. Denies injuries from another. Nutritional mg2 screening: No deficits noted. Tuberculosis screening: No symptoms or risk factors identified. Fall Risk Secondary diagnosis (15 points) CVA, blind. IV access (20 points). Assessment: 03:40 General: Appears in no apparent distress. comfortable, Behavior is calm, cooperative. mg2 Pain: Complains of pain in chest Pain does not radiate. Pain currently is 5 out of 10 on a pain scale. Quality of pain is described as aching, Pain began gradually, Is intermittent. Neuro: Level of Consciousness is awake, alert, obeys commands, Oriented to person, place, time, situation. Cardiovascular: Capillary refill < 3 seconds Patient's skin is warm and dry. Respiratory: Airway is patent Respiratory effort is even, unlabored, Respiratory pattern is regular, symmetrical. Respiratory: Reports shortness of breath. GI: Abdomen is flat, non-distended. : No signs and/or symptoms were reported regarding the genitourinary system. EENT: No signs and/or symptoms were reported regarding the EENT system. Derm: Skin is intact, is healthy with good turgor, Skin is pink, warm \\T\\ dry. normal. Musculoskeletal: Circulation, motion, and sensation intact. Capillary refill < 3 seconds. 04:44 Reassessment: Patient appears in no apparent distress at this time. Patient and/or mg2 family updated on plan of care and expected duration. Pain level reassessed. Patient is alert, oriented x 3, equal unlabored respirations, skin warm/dry/pink. 06:03 Reassessment: Patient appears in no apparent distress at this time. Patient and/or mg2 family updated on plan of care and expected duration. Pain level reassessed. Patient is alert, oriented x 3, equal unlabored respirations, skin warm/dry/pink. patient agreed for hospitalization. Vital Signs: 03:13 BP 181 / 90; Pulse 81; Resp 19 S; Temp 98.3(O); Pulse Ox 100% on R/A; Weight 58.97 kg jd3 (R); Height 5 ft. 4 in. (162.56 cm) (R); Pain 8/10; 04:44 BP 225 / 91; Pulse 81; Resp 18; Pulse Ox 100% on R/A; mg2 06:03 BP 180 / 73; Pulse 74; Resp 18; Pulse Ox 100% on R/A; mg2 06:45 BP 178 / 72; Pulse 75; Resp 18; Pulse Ox 100% on R/A; mg2 03:13 Body Mass Index 22.31 (58.97 kg, 162.56 cm) jd3 ED Course: 03:07 Patient arrived in ED. ds1 03:08 Cristian Mcclure MD is Attending Physician. tw4 03:11 Triage completed. jd3 03:13 Arm band placed on. jd3 03:38 XRAY Chest (1 view) In Process Unspecified. EDMS 03:39 Kelechi Lugo, ARMOND is Primary Nurse. mg2 03:41 Patient has correct armband on for positive identification. fashion merchandiser on. Pulse mg2 ox on. NIBP on. Door closed. Warm blanket given. 03:41 No provider procedures requiring assistance completed. Inserted saline lock: 22 gauge mg2 in right hand, using aseptic technique. Blood collected. Patient maintains SpO2 saturation greater than 95% on room air. 04:20 Notified ED physician of a critical lab result(s). creatinine of 11.5. jd3 04:43 Giovani Clarke is Hospitalizing Provider. tw4 07:16 Patient admitted, IV remains in place. intact. sv Administered Medications: 04:43 Drug: morphine 4 mg Route: IVP; Site: right hand; mg2 06:14 Follow up: Response: No adverse reaction mg2 04:43 Drug: Zofran (Ondansetron) 4 mg Route: IVP; Site: right hand; mg2 06:14 Follow up: Response: No adverse reaction mg2 05:08 Drug: Labetalol 20 mg Route: IVP; Infused Over: 2 mins; Site: right hand; mg2 06:14 Follow up: Response: Blood pressure is lowered mg2 Outcome: 04:44 Decision to Hospitalize by Provider. tw4 07:16 Admitted to Tele accompanied by viviana, via wheelchair, room 205, with chart, Report sv called to Michelle LEAHY 07:16 Condition: stable 07:16 Instructed on the need for admit. 07:50 Patient left the ED. iw Signatures: Dispatcher [employer] Marcella Beebe RN RN sv Sanford, Demi ds1 Margarita Wheatley, RN RN iw Jazmine, Jaspal, RN RN jd3 Cristian Mcclure MD MD tw4 Kelechi Lugo, RN RN mg2
[2020-03-12] MEDS ORDERED: MORPHINE 4 MG/ML SYR ONE (04:48)
[2020-03-12] MEDS ORDERED: ONDANSETRON 4 MG/2 ML VIAL ONE (04:49)
[2020-03-12] MEDS ORDERED: LABETALOL 20 MG/4ML SYRINGE IV ONE (05:13)
--- NOTE | 2020-03-12 06:00 | P.HP ---
Certification for Inpatient Patient admitted to: Observation With expected LOS: <2 Midnights Practitioner: I am a practitioner with admitting privileges, knowledge of patient current condition, hospital course, and medical plan of care. Services: Services provided to patient in accordance with Admission requirements found in Title 42 Section 412.3 of the Code of Federal Regulations Patient History Date of Service: 03/12/20 Reason for admission: Shortness of breath History of Present Illness: 44-year-old woman with a history of end-stage renal disease on hemodialysis, prior history of CVA presented emergency department with a complaint of progressive shortness of breath and chest pain. Patient stated she missed 3 sessions of dialysis. The reason she gave was she did not feel like going for the dialysis. Her blood pressure was severely elevated with systolic in the 200s in the ED. Initial troponin is negative. Chest x-ray in the ED demonstrated increased interstitial opacity. EKG demonstrated normal sinus rhythm. Patient is placed under observation for further management. Allergies No Known Allergies Allergy (Verified 04/11/19 22:08) Home Medications: Aspirin 81 mg PO DAILY 12/23/19 Gabapentin 100 mg PO BID 12/23/19 Insulin Lispro [Humalog] 15 unit SQ TIDWM 12/23/19 Metoclopramide HCl [Reglan] 10 mg PO DAILY 12/23/19 Sertraline [Zoloft*] 100 mg PO DAILY 12/23/19 Sevelamer Carbonate [Renvela*] 2,400 mg PO TIDWM #90 tablet 12/24/19 Clopidogrel Bisulfate [Plavix*] 75 mg PO DAILY #30 tablet 12/26/19 Docusate [Colace Cap*] 100 mg PO DAILY PRN #30 cap 12/26/19 Folic Acid 1 mg PO DAILY #30 tablet 12/26/19 Atorvastatin Calcium [Lipitor] 20 mg PO BEDTIME 02/09/20 Furosemide [Lasix] 1 tab PO BID 02/09/20 Insulin Glargine,Hum.rec.anlog [Tounaila Choi Solostar] 10 unit SQ DAILY 02/09/20 carvediloL [Coreg*] 6.25 mg PO BID 02/09/20 Nepro Shake [Nepro*] 250 ml PO BID #60 can 02/13/20 - Past Medical/Surgical History Diabetic: Yes -: Legally blind, diabetic retinopathy -: Hypertension -: Depression with anxiety -: History of thyroid cancer -: Hyperlipidemia -: Tobacco abuse -: GERD -: Diabetic retinopathy and nephropathy -: CKD III -: hyperlipidemia -: CVA x3 -: Cholecystectomy -: Thyroidectomy -: Multiple eye surgeries -: Psychosocial/ Personal History: The patient is . She has 1 child. She is disabled. - Family History Father -: Heart disease, Hypertension, Other (see notes) Notes: thyroid problems Mother -: Diabetes, Kidney disease - Social History Alcohol use: Yes CD- Drugs: Yes Caffeine use: Yes Review of Systems Other: Except as documented, all other systems reviewed and negative. Physical Examination - Physical Exam General: Alert, In no apparent distress, Oriented x3 HEENT: Mucous membr. moist/pink Neck: Supple, JVD not distended Respiratory: Clear to auscultation bilaterally, Normal air movement Cardiovascular: Regular rate/rhythm, Normal S1 S2 Capillary refill: <2 Seconds Gastrointestinal: Normal bowel sounds, Soft and benign, Non-distended Musculoskeletal: No swelling, No erythema Integumentary: No rashes Neurological: Normal strength at 5/5 x4 extr, Cranial nerves 3-12 intact - Studies Laboratory Data (last 24 hrs) 03/12/20 03:35: PT 10.3, INR 0.87 03/12/20 03:35: WBC 10.0 D, Hgb 13.1, Hct 39.5, Plt Count 200 03/12/20 03:35: Sodium 134 L, Potassium 4.5, BUN 75 H D, Creatinine 11.50 H* D, Glucose 301 H, Magnesium 2.9 H D, Total Bilirubin 0.6, AST 12 L, ALT 12, Alkal ine Phosphatase 87 Assessment and Plan - Problems (Diagnosis) (1) End-stage renal disease on hemodialysis Current Visit: Yes Status: Acute (2) Diabetes mellitus Onset Date: 03/03/17 Current Visit: No Status: Chronic (3) Dyspnea Onset Date: 03/03/17 Current Visit: No Status: Resolved Qualifiers: Dyspnea type: shortness of breath Qualified Code(s): R06.02 - Shortness of breath (4) Chest pain Onset Date: 07/05/18 Current Visit: No Status: Ruled-out Qualifiers: Chest pain type: unspecified Qualified Code(s): R07.9 - Chest pain, unspecified - Plan Place under observation. Trend troponin Nephrology consult for hemodialysis. Aspirin and Plavix. Aggressive blood pressure control. Hydralazine p.r.n. for BP spikes. Continue home antihypertensives. Lantus and insulin sliding scale for glucose management. - Advance Directives Does patient have a Living Will: No Does patient have a Durable POA for Healthcare: No
--- NOTE | 2020-03-12 08:19 | RAD REPORT ---
EXAM DESCRIPTION: RAD - Chest Single View - 03/12/2020 3:32 am CLINICAL HISTORY: COUGH COMPARISON: Chest exam February 19 TECHNIQUE: AP portable chest image was obtained 03/12/2020 3:32 am . FINDINGS: Lung volumes are low. No focal lung parenchymal process. No failure or volume overload. He art and vasculature are normal. No measurable pleural effusion and no pneumothorax. No acute bony abn ormality seen. No acute aortic findings suspected. IMPRESSION: No acute cardiopulmonary process.
[2020-03-12] MEDS: INSULIN -REGULAR HUMAN 50 UNIT/0.5 ML ML SQ SCH ×4 (09:39→21:00)
[2020-03-12] MEDS: METOPROLOL TAR 50 MG TAB PO SCH ×2 (09:44→21:09)
[2020-03-12] MEDS: ASPIRIN EC 81 MG TAB PO SCH (09:44)
[2020-03-12] MEDS: HEPARIN 5000 UNIT/ML 1 ML VIAL SQ SCH ×2 (09:44→16:43)
[2020-03-12 11:44] VITALS: BMI 22.3
[2020-03-12] MEDS ORDERED: MORPHINE 2 MG/ML SYR IV PRN (12:19)
[2020-03-12] MEDS: HYDROCODONE/APAP 7.5/325 MG TAB PO PRN ×2 (12:43→21:09)
--- NOTE | 2020-03-13 00:06 | CON ---
Date of Consultation: 03/12/2020 Chief Complaint: End-stage renal disease, shortness of breath, fluid overload. The patient has end-stage renal disease. She has been dialyzed 3 times per week. She is noncompliant with dialysis schedule and last week she missed the dialysis treatment. History Of Present Illness: She came to the hospital today. She is a 44-year-old woman with history of end-stage renal disease on hemodialysis, prior history of CVA, presented to the emergency department with complaint of progressively worse shortness of breath and chest discomfort. The patient stated she missed 3 sessions on dialysis last week. I asked social media marketing analyst last week to investigate the reason why she is not coming. She has history of noncompliance. Blood pressure was severely elevated with systolic blood pressure in 200 in the emergency room. Initial troponin was negative. Chest x-ray demonstrated increased opacity consistent with pulmonary edema and workup per primary team will be conducted to rule out the etiologies. Review of Systems: Constitutional: The patient is in respiratory distress and she denies fever or chills. Eyes: Denies vision changes. Ears, Nose, Mouth and Throat: Denies sore throat or earache. Respiratory: Has shortness of breath. Denies wheezing. GI: Denies nausea or vomiting. : Denies dysuria or hematuria. Musculoskeletal: Denies muscle aches. Denies gout. All other systems reviewed and all are negative. Past Medical History: Hypertension, diabetes mellitus, depression, anxiety, history of thyroid cancer, hyperlipidemia, GERD, diabetic retinopathy, nephropathy, end-stage renal disease, on dialysis. Hyperlipidemia, CVA x3, cholecystectomy, thyroidectomy, multiple eye surgeries, . Family History: Father; heart disease, hypertension. Mother; diabetes, kidney disease. Social History: Denies tobacco, alcohol, or illicit drugs. Physical Examination: General: The patient is alert, somewhat confused, in mild respiratory distress, oriented x3. Neck: Supple. No JVD. ENMT: no oozing , oral mucosa moist Respiratory: Clear to auscultation. Few rhonchi. Heart: S1, S2. No pericardial friction rub. Abdomen: Obese, soft, nontender. No rebound. No guarding. Extremities: Slight edema. No clubbing. No cyanosis Neurological: Moving extremities. No tremor. Skin: Warm and dry. No skin rashes. Laboratory Data: PT 10.3, INR 0.87. WBC 10.0, hemoglobin 13.1, hematocrit 39.5, platelet count 200,000. Sodium 134, potassium 4.5, BUN 75, creatinine 11.5, glucose 301, magnesium 2.9, bilirubin total 0.6. Impression And Plan: 1. Fluid overload. The patient has marked comorbidities including history of uncontrolled diabetes and history of uncontrolled hypertension. The patient has history of noncompliance. She did not cancel dialysis last week and missed 3 consecutive dialysis. She will need to be resumed on dialysis during this hospitalization and plan is to obtain negative fluid balance and ultrafiltration to treat fluid overload. The patient is complaining of dyspnea and will be evaluated by primary team to rule out other etiology. The patient has congestive heart failure with diastolic dysfunction. Continue low-sodium diet. Hydralazine was used to control hypertensive urgency and emergency. 2. Diabetes mellitus. Continue insulin. 3. Renal osteodystrophy. Hyperphosphatemia. Continue renal diet and binders as well as diabetic diet. 4. Anemia due to chronic kidney disease. At this point, LINWOOD is on hold. 5. History of cerebrovascular accident. The patient was somewhat confused when she came to the hospital. Further workup per primary team. TAMIKA/MODL Voice ID: [id number] Report ID: [id number] DAYANARA
[2020-03-13] MEDS: HEPARIN 5000 UNIT/ML 1 ML VIAL SQ SCH ×3 (01:02→17:00)
[2020-03-13] MEDS ORDERED: HYDRALAZINE HCL 20 MG/ML VIAL IV ONE (03:48)
[2020-03-13 04:45] LABS: Absolute Lymphocytes (CBC) 1.9 K/uL (0.7-4.9); Basophils % 0.9 % (0-1.3); Hematocrit 34.6 % (36.0-45.0); Lymphocytes % 22.4 % (15.3-44.8); MPV 9.1 fL (7.6-11.3)
[2020-03-13 05:00] LABS: Potassium 4.1 mmol/L (3.5-5.1)
[2020-03-13] MEDS: ONDANSETRON 4 MG/2 ML VIAL IV PRN ×3 (07:15→19:01)
[2020-03-13] MEDS: METOPROLOL TAR 50 MG TAB PO SCH ×2 (07:20→21:43)
[2020-03-13] MEDS: HYDROCODONE/APAP 7.5/325 MG TAB PO PRN (07:23)
[2020-03-13] MEDS: INSULIN -REGULAR HUMAN 50 UNIT/0.5 ML ML SQ SCH ×4 (07:30→21:46)
[2020-03-13] MEDS: ASPIRIN EC 81 MG TAB PO SCH (08:36)
--- NOTE | 2020-03-13 09:23 | P.DS ---
Admission Date: 03/12/20 Discharge Date: 03/14/20 Disposition: ROUTINE DISCHARGE Discharge Condition: FAIR Reason for Admission: Shortness of breath Brief History of Present Illness: 44-year-old woman with a history of end-stage renal disease on hemodialysis, prior history of CVA presented emergency department with a complaint of progressive shortness of breath and chest pain. Patient stated she missed 3 sessions of dialysis. The reason she gave was she did not feel like going for the dialysis. Her blood pressure was severely elevated with systolic in the 200s in the ED. Initial troponin is negative. Chest x-ray in the ED demonstrated increased interstitial opacity. EKG demonstrated normal sinus rhythm. Patient is placed under observation for further management. Hospital Course: End-stage renal disease on hemodialysis Diabetes mellitus Dyspnea Chest pain Constipation Course The patient was admitted and was monitored closely under telemetry. with cardiac enzymes were trended and was negative. Patient also found to have hypertensive urgency and was started on hydralazine p.r.n. and also continuing antihypertensives . Nephrology consulted for hemodialysis. She was also continued on aspirin and Plavix along with statin. Aggressive blood pressure control. Continued home antihypertensives. She was also started on Lantus and insulin sliding scale for glucose management. Troponins trended and was negative Patient does not have any chest pain during the hospital stay. Patient is being discharged home today in a stable condition with advice to follow up with PCP in 1 week and also with Cardiology in 1-2 weeks Vital Signs/Physical Exam: Temp Pulse Resp BP Pulse Ox 97.2 F 78 18 201/86 H 96 03/13/20 08:00 03/13/20 08:00 03/13/20 08:23 03/13/20 08:00 03/13/20 08:23 General: Alert, In no apparent distress HEENT: Atraumatic, Normocephalic Neck: Supple Respiratory: Clear to auscultation bilaterally Cardiovascular: Regular rate/rhythm, Normal S1 S2 Capillary refill: <2 Seconds Gastrointestinal: Soft and benign, W/out hepatosplenomegaly Musculoskeletal: No swelling, No warmth Integumentary: No rashes Neurological: Normal speech, Normal strength at 5/5 x4 extr Lymphatics: No axilla or inguinal lymphadenopathy Laboratory Data at Discharge: WBC 8.4 K/uL (4.3-10.9) D 03/13/20 04:23 Hgb 11.6 g/dL (12.0-15.0) L 03/13/20 04:23 Hct 34.6 % (36.0-45.0) L 03/13/20 04:23 Plt Count 185 K/uL (152-406) 03/13/20 04:23 PT 10.3 SECONDS (9.5-12.5) 03/12/20 03:35 INR 0.87 03/12/20 03:35 Sodium 139 mmol/L (136-145) 03/13/20 04:23 Potassium 4.1 mmol/L (3.5-5.1) 03/13/20 04:23 BUN 47 mg/dL (7-18) H D 03/13/20 04:23 Creatinine 8.16 mg/dL (0.55-1.3) H* D 03/13/20 04:23 Glucose 147 mg/dL (74-106) H 03/13/20 04:23 Magnesium 2.9 mg/dL (1.8-2.4) H D 03/12/20 03:35 Total Bilirubin 0.6 mg/dL (0.2-1.0) 03/12/20 03:35 AST 12 U/L (15-37) L 03/12/20 03:35 ALT 12 U/L (12-78) 03/12/20 03:35 Alkaline Phosphatase 87 U/L (45-117) 03/12/20 03:35 Troponin I 0.02 ng/mL (0.0-0.045) 03/13/20 00:12 Home Medications: Aspirin 81 mg PO DAILY 12/23/19 Gabapentin 100 mg PO BID 12/23/19 Insulin Lispro [Humalog] 15 unit SQ TIDWM 12/23/19 Metoclopramide HCl [Reglan] 10 mg PO DAILY 12/23/19 Sertraline [Zoloft*] 100 mg PO DAILY 12/23/19 Sevelamer Carbonate [Renvela*] 2,400 mg PO TIDWM #90 tablet 12/24/19 Clopidogrel Bisulfate [Plavix*] 75 mg PO DAILY #30 tablet 12/26/19 Docusate [Colace Cap*] 100 mg PO DAILY PRN #30 cap 12/26/19 Folic Acid 1 mg PO DAILY #30 tablet 12/26/19 Atorvastatin Calcium [Lipitor] 20 mg PO BEDTIME 02/09/20 Furosemide [Lasix] 80 mg PO BID 02/09/20 Insulin Glargine,Hum.rec.anlog [Toujeo Max Solostar] 25 unit SQ DAILY 02/09/20 carvediloL [Coreg*] 6.25 mg PO BID 02/09/20 Nepro Shake [Nepro*] 250 ml PO BID #60 can 02/13/20 Followup: Elder Tejeda MD [ACTIVE - CAN ADMIT] - Time spent managing pt's care (in minutes): 45
[2020-03-14] MEDS: HEPARIN 5000 UNIT/ML 1 ML VIAL SQ SCH ×3 (00:31→17:00)
--- NOTE | 2020-03-14 01:32 | PN ---
Date of Progress Note: 03/13/2020 Subjective: The patient was admitted with gastroparesis, nausea and vomiting. The patient had dialy sis, tolerated the dialysis well. The patient is noncompliant, missing dialysis. Physical Examination: Vital Signs: When I saw the patient, blood pressure of 177/79, pulse of 60. Chest: Clear to auscultation. Heart: S1 and S2. Regular. Systolic murmur. Abdomen: Nontender. Extremities: No edema. Laboratory Data: Sodium 139, potassium 4.1, bicarb 26, BUN 47, creatinine 8.1, calcium of 8, hemoglo bin 11.6. Current Medications: The patient on it include, 1.Aspirin. 2.Hydralazine. 3.Metoprolol. 4.Zofran. Assessment And Plan: 1.End-stage renal disease, stable on her baseline. We will continue dialysis, the patient is due fo r dialysis tomorrow. 2.Secondary hyperparathyroidism. The patient with poor intake, gastroparesis. We will hold on the binder. 3.Overvolume. Continue to challenge the patient. 4.Hypertension. We will continue to challenge the patient. We will follow up with blood pressure a fter dialysis. I am going to go ahead and add lisinopril. 5.Gastroparesis. Continue symptomatic treatment, will follow up with primary. 6.Diabetes, as by primary. CASSIE/KERI Voice ID: [id number] Report ID: [id number]
[2020-03-14] MEDS: INSULIN -REGULAR HUMAN 50 UNIT/0.5 ML ML SQ SCH ×5 (07:30→20:42)
[2020-03-14] MEDS: METOPROLOL TAR 50 MG TAB PO SCH ×2 (09:15→20:50)
[2020-03-14] MEDS: ASPIRIN EC 81 MG TAB PO SCH (09:15)
[2020-03-14] MEDS: lisinopriL 20 MG TAB PO SCH (09:15)
--- NOTE | 2020-03-14 11:24 | P.PN ---
Subjective Date of Service: 03/14/20 Chief Complaint: Shortness of breath Subjective: No new changes, Improving Review of Systems 10-point ROS is otherwise unremarkable Physical Examination - Vital Signs Temperature: 97.5 F Blood Pressure: 195/86 Pulse: 68 Respirations: 20 Pulse Ox (%): 99 - Physical Exam General: Alert, In no apparent distress HEENT: Atraumatic, Normocephalic Neck: Supple Respiratory: Clear to auscultation bilaterally Cardiovascular: Regular rate/rhythm, Normal S1 S2 Capillary refill: <2 Seconds Gastrointestinal: Soft and benign, W/out hepatosplenomegaly Musculoskeletal: No clubbing, No swelling Integumentary: No rashes Neurological: Normal speech, Normal strength at 5/5 x4 extr Lymphatics: No axilla or inguinal lymphadenopathy Assessment & Plan Physician Review Additional Text: End-stage renal disease on hemodialysis Diabetes mellitus Dyspnea Chest pain - Plan Place under observation. Trend troponin Nephrology consult for hemodialysis. Aspirin and Plavix. Aggressive blood pressure control. Hydralazine p.r.n. for BP spikes. Continue home antihypertensives. Lantus and insulin sliding scale for glucose management. Troponins trended and was negative Patient does not have any chest pain at this time Complains of constipation Will give an enema possible Dc home after dialysis The patient was seen and examined and the findings were discussed on 03/13 2020 This note is for the encounter on the day 03/13/2020 Time Spent Managing Pts Care (In Minutes): 42
[2020-03-14] MEDS: HYDROCODONE/APAP 7.5/325 MG TAB PO PRN (14:25)
[2020-03-14] MEDS ORDERED: LACTULOSE 20 GM/30 ML UCUP PO ONE ×2 (15:00→19:30)
[2020-03-14] MEDS: ONDANSETRON 4 MG/2 ML VIAL IV PRN ×2 (15:38→20:42)
--- NOTE | 2020-03-14 20:07 | PN ---
Date of Progress Note: 03/14/2020 Subjective: The patient was admitted with gastroparesis. The patient complaining of constipation an d nausea. No vomiting today. Physical Examination: Vital Signs: Blood pressure 195/86, pulse of 68. Chest: Clear to auscultation. Heart: S1, S2 regular. Abdomen: Soft, nontender. Bowel sound appreciated. Extremities: No edema. Laboratory Data: H and H 11.6/34.6. Sodium 139, potassium 4.1, bicarb 26, BUN 47, creatinine 8.1, c alcium of 8. Medications: Current medications the patient on include, 1.Aspirin. 2.Lisinopril 20 daily. 3.Metoprolol. 4.Lactulose. Assessment And Plan: 1.End-stage renal disease. We will continue dialysis. The patient due for dialysis today. 2.Secondary hyperparathyroidism. The patient with poor intake with persistent nausea and vomiting. We will hold on the binder. 3.Anemia of chronic kidney disease, stable. Continue LINWOOD. 4.Gastroparesis/constipation. We will try enema today and we will start lactulose. We will follow up with the primary. 5.Diabetes with gastroparesis, as above. CASSIE/KERI Voice ID: [id number] Report ID: [id number]
[2020-03-14] MEDS: HYDRALAZINE HCL 25 MG TABLET PO SCH (20:38)
[2020-03-15] MEDS: HEPARIN 5000 UNIT/ML 1 ML VIAL SQ SCH ×2 (01:22→09:08)
[2020-03-15] MEDS: ONDANSETRON 4 MG/2 ML VIAL IV PRN ×2 (04:10→09:08)
[2020-03-15 05:13] VITALS: TEMP 97.6
[2020-03-15] MEDS: INSULIN -REGULAR HUMAN 50 UNIT/0.5 ML ML SQ SCH ×2 (07:30→11:30)
[2020-03-15] MEDS ORDERED: BISACODYL E.C. 5 MG TAB PO ONE (07:50)
[2020-03-15] MEDS ORDERED: LACTULOSE 20 GM/30 ML UCUP PO ONE (07:50)
[2020-03-15 09:08] VITALS: O2SAT 98
[2020-03-15] MEDS: METOPROLOL TAR 50 MG TAB PO SCH (09:08)
[2020-03-15] MEDS: HYDRALAZINE HCL 25 MG TABLET PO SCH (09:08)
[2020-03-15] MEDS: ASPIRIN EC 81 MG TAB PO SCH (09:09)
[2020-03-15] MEDS: lisinopriL 20 MG TAB PO SCH (09:09)
[2020-03-15 09:16] VITALS: BP 181/84
--- NOTE | 2020-03-15 12:22 | P.PN ---
Subjective Date of Service: 03/14/20 Chief Complaint: Shortness of breath Subjective: No new changes Physical Examination - Vital Signs Temperature: 97.6 F Blood Pressure: 181/84 Pulse: 69 Respirations: 16 Pulse Ox (%): 99 - Physical Exam General: Alert, In no apparent distress HEENT: Atraumatic, Normocephalic Neck: Supple Respiratory: Clear to auscultation bilaterally Cardiovascular: Regular rate/rhythm, Normal S1 S2 Capillary refill: <2 Seconds Gastrointestinal: Soft and benign, W/out hepatosplenomegaly Musculoskeletal: No clubbing Integumentary: No rashes Neurological: Normal speech, Normal strength at 5/5 x4 extr Assessment & Plan Physician Review Additional Text: End-stage renal disease on hemodialysis Diabetes mellitus Dyspnea Chest pain - Plan Monitor under telemetry Trend troponin Nephrology consult for hemodialysis. Aspirin and Plavix. Aggressive blood pressure control. Hydralazine p.r.n. for BP spikes. Continue home antihypertensives. Lantus and insulin sliding scale for glucose management. Troponins trended and was negative Patient does not have any chest pain at this time Complains of constipation Will give an enema and lactulose possible Dc home after dialysis The patient was seen and examined and the findings were discussed on 03/14/2020 This note is for the encounter on the day 03/14/2020 Time Spent Managing Pts Care (In Minutes): 42
--- NOTE | 2020-03-15 12:24 | P.DS ---
Admission Date: 03/12/20 Discharge Date: 03/15/20 Disposition: ROUTINE DISCHARGE Discharge Condition: FAIR Reason for Admission: Shortness of breath Brief History of Present Illness: 44-year-old woman with a history of end-stage renal disease on hemodialysis, prior history of CVA presented emergency department with a complaint of progressive shortness of breath and chest pain. Patient stated she missed 3 sessions of dialysis. The reason she gave was she did not feel like going for the dialysis. Her blood pressure was severely elevated with systolic in the 200s in the ED. Initial troponin is negative. Chest x-ray in the ED demonstrated increased interstitial opacity. EKG demonstrated normal sinus rhythm. Patient is placed under observation for further management. Hospital Course: End-stage renal disease on hemodialysis Diabetes mellitus Dyspnea Chest pain Constipation Course The patient was admitted and was monitored closely under telemetry. with cardiac enzymes were trended and was negative. Patient also found to have hypertensive urgency and was started on hydralazine p.r.n. and also continuing antihypertensives . Nephrology consulted for hemodialysis. She was also continued on aspirin and Plavix along with statin. Aggressive blood pressure control. Continued home antihypertensives. She was also started on Lantus and insulin sliding scale for glucose management. Troponins trended and was negative . Patient does not have any chest pain during the hospital stay. The patient also complains of constipation for which enema was done along with lactulose Patient is being discharged home today in a stable condition with advice to follow up with PCP in 1 week and also with Cardiology in 1-2 weeks Vital Signs/Physical Exam: Temp Pulse Resp BP Pulse Ox 97.6 F 69 16 181/84 H 99 03/15/20 12:21 03/15/20 12:21 03/15/20 12:21 03/15/20 12:21 03/15/20 12:21 General: Alert, In no apparent distress HEENT: Atraumatic, Normocephalic Neck: Supple Respiratory: Clear to auscultation bilaterally, Normal air movement Cardiovascular: Regular rate/rhythm, Normal S1 S2 Capillary refill: <2 Seconds Gastrointestinal: Soft and benign, W/out hepatosplenomegaly Musculoskeletal: No clubbing, No swelling Integumentary: No rashes Neurological: Normal strength at 5/5 x4 extr Lymphatics: No axilla or inguinal lymphadenopathy Laboratory Data at Discharge: WBC 8.4 K/uL (4.3-10.9) D 03/13/20 04:23 Hgb 11.6 g/dL (12.0-15.0) L 03/13/20 04:23 Hct 34.6 % (36.0-45.0) L 03/13/20 04:23 Plt Count 185 K/uL (152-406) 03/13/20 04:23 PT 10.3 SECONDS (9.5-12.5) 03/12/20 03:35 INR 0.87 03/12/20 03:35 Sodium 139 mmol/L (136-145) 03/13/20 04:23 Potassium 4.1 mmol/L (3.5-5.1) 03/13/20 04:23 BUN 47 mg/dL (7-18) H D 03/13/20 04:23 Creatinine 8.16 mg/dL (0.55-1.3) H* D 03/13/20 04:23 Glucose 147 mg/dL (74-106) H 03/13/20 04:23 Magnesium 2.9 mg/dL (1.8-2.4) H D 03/12/20 03:35 Total Bilirubin 0.6 mg/dL (0.2-1.0) 03/12/20 03:35 AST 12 U/L (15-37) L 03/12/20 03:35 ALT 12 U/L (12-78) 03/12/20 03:35 Alkaline Phosphatase 87 U/L (45-117) 03/12/20 03:35 Troponin I 0.02 ng/mL (0.0-0.045) 03/13/20 00:12 Home Medications: Aspirin 81 mg PO DAILY 12/23/19 Gabapentin 100 mg PO BID 12/23/19 Insulin Lispro [Humalog] 15 unit SQ TIDWM 12/23/19 Metoclopramide HCl [Reglan] 10 mg PO DAILY 12/23/19 Sertraline [Zoloft*] 100 mg PO DAILY 12/23/19 Sevelamer Carbonate [Renvela*] 2,400 mg PO TIDWM #90 tablet 12/24/19 Clopidogrel Bisulfate [Plavix*] 75 mg PO DAILY #30 tablet 12/26/19 Docusate [Colace Cap*] 100 mg PO DAILY PRN #30 cap 12/26/19 Folic Acid 1 mg PO DAILY #30 tablet 12/26/19 Atorvastatin Calcium [Lipitor] 20 mg PO BEDTIME 02/09/20 Furosemide [Lasix] 80 mg PO BID 02/09/20 Insulin Glargine,Hum.rec.anlog [Toujeo Max Solostar] 25 unit SQ DAILY 02/09/20 carvediloL [Coreg*] 6.25 mg PO BID 02/09/20 Nepro Shake [Nepro*] 250 ml PO BID #60 can 02/13/20 Diet: Renal Followup: Nael Beckman MD [ACTIVE - CAN ADMIT] - Elder Tejeda MD [ACTIVE - CAN ADMIT] - Time spent managing pt's care (in minutes): 42
--- NOTE | 2020-03-15 17:42 | PN ---
Date of Progress Note: 03/15/2020 Subjective: The patient was admitted with gastroparesis, intractable nausea, and vomiting. The iron ent had been treated yesterday. We gave enema. The patient today eating much better. Physical Examination: Vital Signs: Blood pressure 182/84, pulse of 69. Chest: Clear to auscultation. Heart: S1, S2 regular. Abdomen: Soft, nontender. Extremities: No edema. Neurologic: Alert, legally blind. Laboratory Data: H and H 11.6/34.6. Sodium 139, potassium 4.1, bicarb 26, BUN 47, creatinine 8.1, c alcium of 8. Medications: The patient on include; 1.Aspirin. 2.Heparin. 3.Insulin. 4.Lisinopril. 5.Metoprolol. Assessment And Plan: 1.End-stage renal disease. We will continue the patient on dialysis. The patient is going to be du e for dialysis tomorrow. 2.Secondary hyperparathyroidism. Continue binder. 3.Hypertension, controlled, not optimal, with the presence of gastroparesis. We will place a patch. 4.Diabetes as by primary. 5.Cough gastroparesis. Continue symptomatic treatment. 6.Constipation as above. CASSIE/KERI Voice ID: [id number] Report ID: [id number]
== END 2020-03-15 12:28 | disposition home or self-care (01) ==
LOC: ER 03:05 → ERHOLD 06:42 → 2ND 07:18
PROVIDERS: ADMIT Internal Medicine; ATTEND Family Medicine
DX: E11.22 Type 2 diabetes mellitus with diabetic chronic kidney disease (principal); I12.0 Hypertensive chronic kidney disease with stage 5 chronic kidney disease or end stage renal disease; N18.6 End stage renal disease; D63.1 Anemia in chronic kidney disease; E87.70 Fluid overload, unspecified; N25.0 Renal osteodystrophy; E83.39 Other disorders of phosphorus metabolism; N25.81 Secondary hyperparathyroidism of renal origin; E11.43 Type 2 diabetes mellitus with diabetic autonomic (poly)neuropathy; K31.84 Gastroparesis; Z91.15 Patient's noncompliance with renal dialysis; Z99.2 Dependence on renal dialysis; R06.02 Shortness of breath; R06.00 Dyspnea, unspecified; R05 Cough; R07.9 Chest pain, unspecified; Z20.828 Contact with and (suspected) exposure to other viral communicable diseases; K59.00 Constipation, unspecified; E11.319 Type 2 diabetes mellitus with unspecified diabetic retinopathy without macular edema; E11.21 Type 2 diabetes mellitus with diabetic nephropathy; E78.5 Hyperlipidemia, unspecified; F41.8 Other specified anxiety disorders; Z79.82 Long term (current) use of aspirin; Z79.4 Long term (current) use of insulin; Z79.02 Long term (current) use of antithrombotics/antiplatelets; Z79.899 Other long term (current) drug therapy; Z85.850 Personal history of malignant neoplasm of thyroid; Z86.73 Personal history of transient ischemic attack (TIA), and cerebral infarction without residual deficits
CPT/HCPCS: 93005; 85025 ×2; 80048 ×2; 36415 ×2; 83735; 85610; 82947 ×13; 80076; 84484 ×6; 83880; 71045; 90935 ×2; 96375; 96374; 99285; U0002; J0360; J1644 ×9; J2270; G0378 ×6; J2405 ×8

== ENCOUNTER 2020-04-23 07:38 | Inpatient (IN) | payer OTHER ==
--- OUTSIDE RECORDS SUMMARY | 2020-04-23 07:40 | XMS REPORT | Clinical Summary ---
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 ([facility]); Other specified hypothyroidism; Acute metabolic encephalopathy; DELMA (acute kidn ey injury) ([facility]) 07/15/2019 Travel 07/15/2019 Documentation Internal Medicine Negar Douglas MD after 04/23/2019 Family History Medical History Relation Name Comments [...] Taken Blood Pressure 163/76 07/18/2019 11:00 AM [facility] Pulse 85 07/18/2019 11:00 AM [employer] [facility] Temperature 36.5 C (97.7 F) 07/18/2019 11:00 AM [facility] [facility] Respiratory Rate 18 07/18/2019 11:00 AM [employer] [facility] Oxygen Saturation 98% 07/18/2019 11:00 AM [employer] Inhaled Oxygen Concentration - - Weight 98.8 kg (217 lb 13 oz) 07/16/2019 5:08 PM [employer] [facility] Height 162.6 cm (5' 4") 07/15/2019 9:22 PM [employer] [facility] Body Mass Index 37.39 07/16/2019 5:08 PM [facility] Plan of Treatment Health Maintenance Due Date [...] 07/16/2019, 03/15/2017 INFLUENZA VACCINE (#1) 2020 07/23/2013 LIPID PANEL 07/16/2022 07/16/2019, 03/15/2017 Procedures Procedure Name Priority Date/Time Associated Comments Diagnosis REPORT OF PROCEDURE - 07/21/2019 8:51 ENDOSCOPY SCAN AM [facility] [facility] RHYTHM STRIP - SCAN 07/21/2019 8:50 AM [employer] [facility] XR CHEST 1 VIEW STAT 07/18/2019 11:09 Results for this PORTABLE/BEDSIDE AM [employer] procedure a re in the results section. POCT-GLUCOSE METER Routine 07/18/2019 8:22 Resul ts for this AM [employer] procedure are i n the results section. CBC W/PLT COUNT & AUTO Routine 07/18/2019 4:37 R esults for this DIFFERENTIAL AM [employer] procedure are i n the results section. CBC W/PLT COUNT & AUTO Routine 07/18/2019 4:37 R esults for this DIFFERENTIAL AM [employer] procedure are i n the results section. PROTHROMBIN TIME/INR Routine 07/18/2019 4:37 Res ults for this AM [employer] procedure are i n the results section. PHOSPHORUS Routine 07/18/2019 4:37 Results for this AM [employer] procedure are i n the results section. MAGNESIUM Routine 07/18/2019 4:37 Results for this AM [employer] procedure are i n the results section. BASIC METABOLIC PANEL Routine 07/18/2019 4:37 Re sults for this (7) AM [employer] procedure are i n the results section. POCT-GLUCOSE METER Routine 07/17/2019 8:56 Resul ts for this PM [employer] procedure are i n the results section. POCT-GLUCOSE METER Routine 07/17/2019 5:07 Resul ts for this PM [employer] procedure are i n the results section. POCT-GLUCOSE METER Routine 07/17/2019 12:28 Resul ts for this PM [employer] procedure are i n the results section. SCREEN, URINE Routine 07/17/2019 11:36 Results for this AM [employer] procedure are i n the results section. POCT-GLUCOSE METER Routine 07/17/2019 7:18 Resul ts for this AM [employer] procedure are i n the results section. CBC W/PLT COUNT & AUTO Routine 07/17/2019 5:55 R esults for this DIFFERENTIAL AM [employer] procedure are i n the results section. CBC W/PLT COUNT & AUTO Routine 07/17/2019 5:55 R esults for this DIFFERENTIAL AM [employer] procedure are i n the results section. PROTHROMBIN TIME/INR Routine 07/17/2019 5:55 Res ults for this AM [employer] procedure are i n the results section. PHOSPHORUS Routine 07/17/2019 5:55 Results for this AM [employer] procedure are i n the results section. MAGNESIUM Routine 07/17/2019 5:55 Results for this AM [employer] procedure are i n the results section. BASIC METABOLIC PANEL Routine 07/17/2019 5:55 Re sults for this (7) AM [employer] procedure are i n the results section. MR BRAIN WITHOUT IV Routine 07/17/2019 12:54 Resu lts for this CONTRAST AM [employer] procedure are i n the results section. MRA NECK WITHOUT IV Routine 07/17/2019 12:54 Resu lts for this CONTRAST AM [employer] procedure are i n the results section. MRA HEAD WITHOUT IV Routine 07/17/2019 12:54 Resu lts for this CONTRAST AM [employer] procedure are i n the results section. ECHOCARDIOGRAM REPORT - 07/16/2019 9:20 SCAN PM [employer] POCT-GLUCOSE METER Routine 07/16/2019 9:03 Resul ts for this PM [employer] procedure are i n the results section. HEMODIALYSIS INPATIENT Routine 07/16/2019 5:23 R esults for this PM [employer] procedure are i n the results section. POCT-GLUCOSE METER Routine 07/16/2019 5:21 Resul ts for this PM [employer] procedure are i n the results section. HEPATITIS B SURFACE Routine 07/16/2019 1:41 Resu lts for this ANTIGEN PM [employer] procedure are i n the results section. POCT-GLUCOSE METER Routine 07/16/2019 1:01 Resul ts for this PM [employer] procedure are i n the results section. POCT-GLUCOSE METER Routine 07/16/2019 12:03 Resul ts for this PM [employer] procedure are i n the results section. 2D ECHO W/ DOPPLER Routine 07/16/2019 11:13 Resul ts for this (CW/PW/COLOR) AM [employer] procedure are in the results section. BASIC METABOLIC PANEL Routine 07/16/2019 8:40 Re sults for this (7) AM [facility] [facility] procedure are i n the results section. POCT-GLUCOSE METER Routine 07/16/2019 8:05 Resul ts for this AM [employer] procedure are i n the results section. ECG 12-LEAD STAT 07/16/2019 7:43 Results for this AM [employer] procedure are i n the results section. POCT-GLUCOSE METER Routine 07/16/2019 7:30 Resul ts for this AM [employer] procedure are i n the results section. XR CHEST 1 VIEW Routine 07/16/2019 7:04 Results for this PORTABLE/BEDSIDE AM [employer] procedure a re in the results section. POCT-GLUCOSE METER Routine 07/16/2019 5:21 Resul ts for this AM [employer] procedure are i n the results section. BASIC METABOLIC PANEL STAT 07/16/2019 5:14 Re sults for this (7) AM [facility] procedure are i n the results section. HEMOGLOBIN A1C Routine 07/16/2019 3:50 Results f or this AM [employer] procedure are i n the results section. CBC W/PLT COUNT & AUTO Routine 07/16/2019 3:49 R esults for this DIFFERENTIAL AM [employer] [facility] procedure are i n the results section. CBC W/PLT COUNT & AUTO Routine 07/16/2019 3:49 R esults for this DIFFERENTIAL AM [facility] [facility] procedure are i n the results section. LIPID PANEL Routine 07/16/2019 3:49 Results for this AM [facility] procedure are i n the results section. PHOSPHORUS Routine 07/16/2019 3:49 Results for this AM [employer] procedure are i n the results section. MAGNESIUM Routine 07/16/2019 3:49 Results for this AM [facility] procedure are i n the results section. HEPATIC FUNCTION PANEL Routine 07/16/2019 3:49 R esults for this AM [employer] procedure are i n the results section. BASIC METABOLIC PANEL Routine 07/16/2019 3:49 Re sults for this (7) AM [facility] [facility] procedure are i n the results section. HIV-1 ANTIGEN WITH Routine 07/16/2019 3:48 Resul ts for this HIV-1/2 ANTIBODY AM [employer] procedure a re in the results section. RPR Routine 07/16/2019 3:48 Results for this AM [employer] procedure are i n the results section. VITAMIN B12 AND FOLATE Routine 07/16/2019 3:48 R esults for this AM [employer] procedure are i n the results section. TSH/FREE T4 IF Routine 07/16/2019 3:48 Results f or this INDICATED AM [employer] procedure are i n the results section. PROTHROMBIN TIME/INR Routine 07/16/2019 3:48 Res ults for this AM [employer] procedure are i n the results section. POCT-GLUCOSE METER Routine 07/16/2019 3:34 Resul ts for this AM [employer] procedure are i n the results section. after 04/23/2019 Results EKG-SCANNED (07/21/2019 8:51 AM [facility]) Narrative Performed At This result has an attachment that is no t available. RHYTHM STRIP - SCAN (07/21/2019 8:50 AM [employer]) Narrative Performed At This result has an attachment that is no t available. XR chest 1 view portable / bedside (07/18/2019 11:09 AM [employer])Only the most recent of2 resultswithin the time period is included. Specimen Narrative Performed At FINAL REPORT [employer] RAD, CHEST, 1 VIEW, NON DEPT INDICATION: r/o pneumonia COMPARISON: July 16, 2019 FINDINGS: Portable frontal view of the c hest. IMPRESSION: Support Lines: Stable left IJ dual-lumen central venous catheter. Lungs and pleura: Lungs are clear. No ef fusion. No pneumothorax. Heart and mediastinum: Stable contours. Additional findings: None. Signed: JR Mccollum Robert MD Report Verified Date/Time:07/18/2019 11:27:35 Reading Location: [employer] y Reading Room Procedure Note Interface, External Ris In - 07/18/2019 11:29 AM [facility] [facility] FINAL REPORT RAD, CHEST, 1 VIEW, NON [...] Verified Date/Time: 07/18/2019 1 1:27:35 Reading Location: [employer] y Reading Room Performing Organization Address City/State/Zipcode Phone Number [employer] POC-Glucose meter (07/18/2019 8:22 AM [facility])Only the most recent of13 results within the time period is included. POC-Glucose Meter 126 (H)Comment: : TESTED 70 - 110 mg/dL [facility] [address] [facility], [id number]: Literature Teacher/Surgical Elastic Knitter Hand Frame ID = [id number] for Baldomero Kuo Specimen Blood Performing Organization Address City/State/Zipcode Phone Number [facility] [address] [place] [address] CENTER CBC with platelet count + automated diff (07/18/2019 4:37 AM [employer])Only the most recent of3 resultswithin the time period is included. WBC 13.0 (H) 3.5 - 10.5 K/L [facility] RBC 3.80 (L) 3.93 - 5.22 M/L [facility] Hemoglobin 11.3 11.2 - 15.7 GM/DL [facility] Hematocrit 35.2 34.1 - 44.9 % [facility] MCV 92.6 79.4 - 94.[address] [facility] MCH 29.7 25.6 - 32.[address] [facility] MCHC 32.1 (L) 32.2 - 35.5 GM/DL [facility] RDW 13.6 11.7 - 14.4 % [facility] Platelets 233 150 - 450 K/CU MM [facility] MPV 9.5 9.4 - 12.[address] [facility] nRBC 0 0 - 0 /[address] [facility] % Neutros 70 % [facility] % Lymphs 20 % [facility] % Monos 7 % [facility] % Eos 2 % [facility] % Baso 1 % [facility] # Neutros 9.09 (H) 1.56 - 6.13 K/L [facility] # Lymphs 2.65 1.18 - 3.74 K/L [facility] # Monos 0.93 (H) 0.24 - 0.36 K/L [facility] # Eos 0.24 0.04 - 0.36 K/L [facility] # Baso 0.07 0.01 - 0.08 K/L [facility] Immature Granulocytes-Relative 0 0 - 1 % C HI [facility] Specimen Blood Performing Organization Address City/[facility] Cent[facility] Phone Number [address] [address] CENTER Prothrombin time/INR (07/18/2019 4:37 AM [employer]ER)Only the most recent of3 results within the time period is included. Protime 12.2 11.9 - 14.2 seconds [facility] INR 1.0 <=5.9 [facility] Specimen Blood Narrative Performed At Effective 01/12/2019: PT Reference Range [facility] Change New: 11.9-14.2Previous: 11.7-14.7 RECOMMENDED COUMADIN/WARFARIN INR THERAPY RANGES STANDARD DOSE: 2.0-3.0Includes: PROPHYLAXIS for venous thrombosis, systemic embolization; TREATMENT for venous thrombosis and/or pulmonary embolus. HIGH RISK: Target INR is 2.5-3.5 for patients wiht mechanical heart valves. Performing Organization Address City/[facility] Centercode Phone Number [address] [address] CENTER Phosphorus (07/18/2019 4:37 AM [employer]ER)Only the most recent of3 resultswithin the time period is included. Phosphorus 4.6 2.3 - 4.7 mg/dL [facility] Specimen Blood Performing Organization Address City/[facility]/Zipcode Phone Number [address] [address] CENTER Magnesium (07/18/2019 4:37 AM [employer]ER)Only the most recent of3 resultswithin the time period is included. Magnesium 2.0 1.6 - 2.6 mg/dL [facility] Specimen Blood Performing Organization Address City/[facility]/Zipcode Phone Number [facility] [address] [place] [address] ASSUMPTION Basic metabolic panel (07/18/2019 4:37 AM [employer]ER)Only the most recent of5 results within the time period is included. Sodium 134 (L) 136 - 145 meq/L [facility] Potassium 5.0 3.5 - 5.1 meq/L [facility] Chloride 103 98 - 107 meq/L [facility] CO2 25 22 - 29 meq/L [facility] BUN 28 (H) 7 - 21 mg/dL [facility] Creatinine 5.40 (H) 0.57 - 1.25 mg/dL [facility] Glucose 146 (H) 70 - 105 mg/dL [facility] Calcium 8.8 8.4 - 10.2 mg/dL [facility] EGFR 9Comment: ESTIMATED GFR IS mL/min/1.73 sq m [facility] NOT ACCURATE CREATININE [facility] CLEARANCE IN PREDICTING GLOMERULAR FILTRATION RATE. ESTIMATED GFR IS NOT APPLICABLE FOR DIALYSIS PATIENTS. Specimen Blood Performing Organization Address [facility]/Zipcode Phone Number [place] [phone] [place] [address] ASSUMPTION Screen, urine (07/17/2019 11:36 AM [employer]) Preg Test, Ur Negative [facility] Specimen Urine Performing Organization Address [facility]/Zipcode Phone Number [place] [phone] [place] [address] ASSUMPTION MR brain without IV contrast (07/17/2019 12:54 AM [employer]) Specimen Narrative Performed At FINAL REPORT [facility] MR, BRAIN, WITHOUT CONTRAST, MR, MRA, [...] External Ris In - 07/17/2019 4:57 AM [employer]ER FINAL REPORT MR, BRAIN, WITHOUT CONTRAST, MR, [...] 3:28:33 Performing Organization Address City/State/Zipcode Phone Number [employer] MR MRA neck without contrast (07/17/2019 12:54 AM [employer]ER) Specimen Narrative Performed At FINAL REPORT [facility] MR, BRAIN, WITHOUT CONTRAST, MR, MRA, [...] External Ris In - 07/17/2019 4:57 AM [employer]ER FINAL REPORT MR, BRAIN, WITHOUT CONTRAST, MR, [...] radiata, right internal capsule and right posterior ntihya lamus suggestive of subacute ischemia versus T2 shine through artifac t. Moderate chronic angiopathic ischemic ch anges. 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 Patent bilateral cervical ICAs and verte bral arteries. Signed: Yg Ortiz MD Report Verified Date/Time: 07/17/2019 0 3:28:33 Performing Organization Address City/State/Zipcode Phone Number [employer] LOVELY MR MRA head without contrast (07/17/2019 12:54 AM [employer]) Specimen Narrative Performed At FINAL REPORT ERNESTINA [...] External Ris In - 07/17/2019 4:57 AM [employer]ER FINAL REPORT MR, BRAIN, WITHOUT CONTRAST, MR, [...] 3:28:33 Performing Organization Address City/State/Zipcode Phone Number [facility] ECHOCARDIOGRAM REPORT - SCAN (07/16/2019 9:20 PM [employer]) Narrative Performed At This result has an attachment that is no t available. HEMODIALYSIS INPATIENT (07/16/2019 5:23 PM [employer]) Narrative Performed At Jeff Mcduffie RN 06/195:24 [...] Hepatitis B surface antigen (07/16/2019 1:41 PM [employer]) HBsAg Screen Nonreactive Nonreactive [facility] Specimen Blood Performing Organization Address City/State/Zipcode Phone Number [place] [phone] [place] [address] CENTER 2D Echo W/Doppler(CW/PW/Color) (07/16/2019 11:13 AM [employer]) Ejection Fraction [facility] ECHO HEAR [facility]LAB [facility] Specimen Narrative Performed At Transthoracic Echocardiography Report (T TE) [facility] ECHO HEARTLAB [facility] Demographics Patient NameSPeyman HUTCHINSON of Study07/16/2019 Gender Female Visit [id number] Race Unknown [id number] Number Date of 1975 ReferringMaouCarolinas [facility] Phys[facility] Age 43 year(s) SonographerDaja Arthur, [facility] [employer] Vulcanizer Yanna McdonaldInterpreting Marcella Yanez MD [place] Physician [...] External Ris In - 07/16/2019 2:11 PM [employer] Transthoracic Echocardiography Report (TTE) Demographics Patient Name ARCHANA WOO Date of St udy 07/16/2019 Gender Female Visit Number [id number] [id number] Number Date of 1975 Referring Arvin Ann Physician Age 43 year(s) Sonographe r Daja Arthur, [facility] [employer] Yanna Blanchardi MD Oscar Dupont Physician Procedure [...] City/State/Zipcode Phone Number [facility] ECHO HEARTLAB [facility] ECG 12 lead (07/16/2019 7:43 AM [employer]) Specimen Narrative Performed At Ventricular Rate 87 BPM GE MUSE Atrial Rate 87 BPM P-R Interval 136 ms QRS Duration 72 ms Q-T Interval 380 ms QTC Calculation(Bazett) 457 ms P [place] 68 degrees R [place] 17 degrees T [place] 65 degrees Normal sinus rhythm Normal ECG When compared with ECG of 19-MAR-2017 15 :16, QT has shortened Confirmed by MD BROCK, LAKSHMI ([id number]) on 07/18/2019 7:35:43 AM Procedure Note Interface, External Ris In - 07/18/2019 7:35 AM [employer] Ventricular Rate 87 BPM Atrial Rate 87 BPM P-R Interval 136 ms QRS Duration 72 ms Q-T Interval 380 ms QTC Calculation(Bazett) 457 ms P [place] 68 degrees R [place] 17 degrees T [place] 65 degrees Normal sinus rhythm Normal ECG When compared with ECG of 19-MAR-2017 15 :16, QT has shortened Confirmed by MD BROCK, LAKSHMI ([id number]) on 07/18/2019 7:35:43 AM Performing Organization Address City/State/Zipcode Phone Number [employer] [facility] Hemoglobin A1c (07/16/2019 3:50 AM [employer]) Hemoglobin A1C 9.5 (H) 4.3 - 6.1 % [facility] Specimen Blood Performing Organization Address City/State/Zipcode Phone Number [address] [address] CENTER Hepatic function panel (07/16/2019 3:49 AM [employer]) Protein, Total 6.3 6.0 - 8.3 gm/dL [facility] Albumin 3.0 (L) 3.5 - 5.0 g/dL [facility] Total Bilirubin 0.4 0.2 - 1.2 mg/dL [facility] Bilirubin, Direct 0.2 0.1 - 0.5 mg/dL [facility] Alkaline Phosphatase 182 (H) 40 - 150 U/L [facility] AST 63 (H) 5 - 34 U/L [facility] ALT 99 (H) 6 - 55 U/L [facility] Specimen Blood Performing Organization Address City/[facility] Centercode Phone Number [address] [address] ASSUMPTION Lipid panel (07/16/2019 3:49 AM [employer]) Triglycerides 100 mg/dL [facility] Cholesterol 177 mg/dL [facility] HDL 48 mg/dL [facility] LDL Calculated 109 mg/dL [facility] Specimen Blood Narrative Performed At Triglyceride Reference Range: [facility] Low Risk <150 [id number] High Risk 200-499 Very High Risk>=500 Cholesterol Reference Range: Low Risk <200 [id number] High Risk>240 HDL Cholesterol Reference Range: Low Risk >=60 High Risk <40 LDL Cholesterol Reference Range: Optimal<100 Near [id number] [id number] [id number] Very High >=190 Performing Organization Address City/[facility] Centercode Phone Number [address] [address] ASSUMPTION Vitamin B12 and Folate (07/16/2019 3:48 AM [employer]) Vitamin B12 525 213 - 816 pg/mL [facility] Folate 6.5 (L) >=7.0 ng/mL [facility] Specimen Blood Performing Organization Address City/[facility]/Zipcode Phone Number [address] [address] ASSUMPTION TSH/Free T4 If Indicated (07/16/2019 3:48 AM [employer]) TSH 0.87 0.35 - 4.94 uIU/mL [facility] Specimen Blood Performing Organization Address City/[facility]/Zipcode Phone Number [address] [address] ASSUMPTION HIV-1 Antigen with HIV-1/2 Antibody (07/16/2019 3:48 AM [employer]) HIV-1 Antigen with HIV 1&2 Nonreactive Nonreactive [facility] Specimen Blood Performing Organization Address City/State/Zipcode Phone Number [facility] [address] [place] [address] CENTER RPR (07/16/2019 3:48 AM [employer]) RPR Nonreactive Nonreactive [facility] Specimen Blood Performing Organization Address City/State/Zipcode Phone Number [facility] [address] [place] [address] CENTER after 04/23/2019 Insurance Payer Benefit Plan / Subscriber ID Type Phone Address Group [facility] MEDIC[facility] xxxxxxxxx MEDICARE MGD CARE HMO MEDICAID - MEDICAID [facility] COMM STAR xxxxxxxxx Medicaid Contracted MGD CARE PLAN Advance Directives For more information, please contact:[address] [phone] Code Status Date Activated Date Inactivated Comments Full Code 07/16/2019 12:46 AM 07/18/2019 4:56 PM This code status was determined by: Patient Full Code 03/14/2017 8:30 PM 03/20/2017 12:11 PM This code status was determined by: Patient
--- OUTSIDE RECORDS SUMMARY | 2020-04-23 07:43 | XMS REPORT | Continuity of Care Document ---
:1975 Author Organization [facility] t Address [address] [place] [address] Care Team Providers Name Role Phone Stella REYNOSO Attending Clinician Seth REYNOSO Attending Clinician Graham Schultz MD Attending Clinician Raphael REYNOSO Attending Clinician STELLA Attending Clinician Unavailable LYN EDWARDS Attending Clinician Unavailable Graham SCHULTZ Admitting Clinician Unavailable LYN EDWARDS Admitting Clinician Unavailable Payers Payer Name Policy Policy Number Effective Expiration Source Type Date Date [facility] - xxxxxxxxx [facility] MGD CAREUNITED L ukes - MEDICARE HMOxxxxxxxxx [facility] MEDICAID - MEDICAID MGD xxxxxxxxx [facility] CAREMCD COMM STAR [facility] - PLANxxxxxxxxxMedicaid [facility] Contracted Center Problems Condition Condition Condition Status Onset Resolution Last Treating Co mments Source Name Details Category Date Date Treatment Clinician Date Left sided Left sided Disease Active 2018-[address] numbness numbness 09-15 [facility] - 00:00: Medical 00 [place] ESRD on ESRD on Disease Active 2018-[address] [facility] dialysis dialysis 09-15 [facility] - 00:00: Medical 00 [place] Proteinuri Proteinuri Disease Active [facility] [...] 03-16 [facility] - encephalop encephalop 00:00: [facility] dical athy athy 00 Center Cerebrovas Cerebrovas [...] 03-15 Carolann kes - phageal phageal 00:00: [facility] reflux reflux 00 [place] disease) disease) COPD COPD Disease Active [facility] ([facility]ronic (chronic 03-15 [facility] - obstructiv obstructiv 00:00: Ak dical e e 00 Center pulmonary pulmonary [...] 7-30 Carolann kes - y y 00:00: [place] [address] Center Allergies, Adverse Reactions, Alerts Allergy Allergy Status Severity Reaction(s) Onset Inactive Treating Comm ents Source Name Type Date Date Clinician No Known DA Active [facility] All[facility]ie 08-22 [place] 00:00: [address] Family History Family Member Diagnosis Comments Start Date Stop Date Source Natural father Hypertension [facility] Natural mother Diabetes [facility] Natural mother Kidney disease [facility] Social History Social Habit Start Date Stop Date Quantity Comments Source Sex Assigned At [facility] Smoking Status Start Date Stop Date Source Current every day smoker 2019-07-16 00:00:00 [facility] Medications Ordered Filled Start Stop Current Ordering [...] for 30 days. cyclobenzap 2018-08 Yes 2.5mg [id number] Take 2.[address] rine 0-16 [id number] mg by [facility] - (FLEXERIL) 00:00: 3D mouth 3 Medi ghassan 5 MG tablet 00 (three) Cente r times daily. DULoxetine 2018-08 Yes 30mg QD Take [address] (CYMBALTA) 0-16 by mouth [facility] - 30 MG 00:00: daily. Medical capsule [address] [place] [address] famotidine 2018-08 Yes 20mg QD Take 20 [...] Center needed for Anxiety. busPIRone Yes 10mg Q.[id number] Take [address] (BUSPAR) 10 7-30 [id number] by mouth 3 [facility] - MG tablet [...] Source Systolic blood 2019-07-18 11:00:00 163 mm[Hg] [facility] Diastolic blood 2019-07-18 11:00:00 76 mm[Hg] [facility] S t [facility] pressure [facility] Heart rate 2019-07-18 11:00:00 85 /min [facility] Body temperature 2019-07-18 11:00:00 36.5 Mallory [facility] Respiratory rate 2019-07-18 11:00:00 18 /min [facility] Oxygen saturation in 2019-07-18 11:00:00 98 /min [facility] - Arterial blood by Medical Ce nter Pulse oximetry Body weight Measured 2019-07-16 17:08:00 98.8 kg [facility] BMI 2019-07-16 17:08:00 37.39 kg/m2 [facility] Body height 2019-07-15 21:22:00 162.6 cm [facility] Procedures Procedure Date / Time Performing Clinician Source Performed REPORT OF PROCEDURE - 2019-07-21 08:51:04 Provider, Default [facility] ENDOSCOPY SCAN Scanning [facility] RHYTHM STRIP - SCAN 2019-07-21 08:50:54 Provider, Default [facility] XR CHEST 1 VIEW 2019-07-18 11:09:00 Ann Lim [facility] PORTABLE/BEDSIDE [facility] POCT-GLUCOSE METER 2019-07-18 08:22:00 Ann Lim [facility] BASIC METABOLIC PANEL (7) 2019-07-18 04:37:[address] [facility] MAGNESIUM 2019-07-18 04:37:00 [facility] PHOSPHORUS 2019-07-18 04:37:00 [facility] PROTHROMBIN TIME/INR 2019-07-18 04:37:00 [facility] CBC W/PLT COUNT & AUTO 2019-07-18 04:37:00 [facility] POCT-GLUCOSE METER 2019-07-17 20:56:00 Shania Schultz [facility] POCT-GLUCOSE METER 2019-07-17 17:07:00 Shania Schultz [facility] POCT-GLUCOSE METER 2019-07-17 12:28:00 Shania Schultz [facility] SCREEN, URINE 2019-07-17 11:36:00 Ann Cook [facility] POCT-GLUCOSE METER 2019-07-17 07:18:00 Shania Schultz [facility] BASIC METABOLIC PANEL (7) 2019-07-17 05:55:00 [facility] MAGNESIUM 2019-07-17 05:55:00 [facility] PHOSPHORUS 2019-07-17 05:55:00 [facility] PROTHROMBIN TIME/INR 2019-07-17 05:55:00 [facility] CBC W/PLT COUNT & AUTO 2019-07-17 05:55:00 [facility] MRA HEAD WITHOUT IV 2019-07-17 00:54:00 [facility] MRA NECK WITHOUT IV 2019-07-17 00:54:00 [facility] MR BRAIN WITHOUT IV 2019-07-17 00:54:00 [facility] ECHOCARDIOGRAM REPORT - 2019-07-16 21:20:18 Provider, Default [facility] POCT-GLUCOSE METER 2019-07-16 21:03:00 Shania Schultz [facility] HEMODIALYSIS INPATIENT 2019-07-16 17:23:31 Ashwin Cole [facility] POCT-GLUCOSE METER 2019-07-16 17:21:00 Shania Schultz [facility] HEPATITIS B SURFACE 2019-07-16 13:41:00 Ashwin Cole [facility] POCT-GLUCOSE METER 2019-07-16 13:01:00 Shania Schultz [facility] POCT-GLUCOSE METER 2019-07-16 12:03:00 Shania Schultz [facility] 2D ECHO W/ DOPPLER 2019-07-16 11:13:59 [facility] (CW/PW/COLOR) [facility] BASIC METABOLIC PANEL (7) 2019-07-16 08:40:00 [facility] POCT-GLUCOSE METER 2019-07-16 08:05:00 Shania Schultz [facility] ECG 12-LEAD 2019-07-16 07:43:10 [facility] POCT-GLUCOSE METER 2019-07-16 07:30:00 [facility] 1 VIEW 2019-07-16 07:04:00 [facility] PORTABLE/BEDSIDE Medical [place] POCT-GLUCOSE METER 2019-07-16 05:21:00 [facility] BASIC METABOLIC PANEL (7) 2019-07-16 05:14:00 [facility] HEMOGLOBIN A1C 2019-07-16 03:50:00 [facility] BASIC METABOLIC PANEL (7) 2019-07-16 03:49:00 [facility] HEPATIC FUNCTION PANEL 2019-07-16 03:49:00 [facility] MAGNESIUM 2019-07-16 03:49:00 [facility] PHOSPHORUS 2019-07-16 03:49:00 [facility] LIPID PANEL 2019-07-16 03:49:00 [facility] CBC W/PLT COUNT & AUTO 2019-07-16 03:49:00 [facility] PROTHROMBIN TIME/INR 2019-07-16 03:48:00 [facility] TSH/FREE T4 IF INDICATED 2019-07-16 03:48:00 [facility] VITAMIN B12 AND FOLATE 2019-07-16 03:48:00 [facility] RPR 2019-07-16 03:48:00 [facility] HIV-1 ANTIGEN WITH HIV-1/2 2019-07-16 03:48:00 [facility] POCT-GLUCOSE METER 2019-07-16 03:34:00 Arvin Ann [facility] [id number] 2019-05-18 00:00:00 ENCPL [id number] 2019-05-18 00:00:00 ENCPL [id number] 2019-05-18 00:00:00 ENCPL [id number] 2019-05-18 00:00:00 ENCPL Plan of Care Planned Activity Planned Date Details Comments Source Future Scheduled 2022-07-[address] [facility] - Test 00:00:00 (procedure) [code = Medical Center 33353490] Future Scheduled 2020-04-17 INFLUENZA VACCINE (#1) [facility]00 [code = INFLUENZA Medical Ce nter VACCINE (#1)] Future Scheduled 2019-10-[address] Carolann kes - Test 00:00:00 measurement Medical Center (procedure) [code = 73528685] Future Scheduled 2018-03-17 Urine screening for [facility] - Test 00:00:00 protein (procedure) Medical Center [code = 465039925] Future Scheduled 2017-08-[address] [facility] - Test 00:00:00 WELLNESS (YEAR 2 or Medical Center FIRST YEAR if no IPPE) [code = MEDICARE ANNUAL WELLNESS (YEAR 2 or FIRST YEAR if no IPPE)] Future Scheduled 1995-10-[address] [facility] - Test 00:00[facility]00 [facility] [place] cerv[facility] (procedure) [code = 103578923] Future Scheduled [address] DIABETIC EYE EXAM [facility] - Test 00:00:00 [code = DIABETIC EYE Medical Center EXAM] Future Scheduled [address] [facility] - Test 00:00:00 examination Medical Center (regime/therapy) [code = 406572880] Future Scheduled [address] [facility] - Test 00:00:00 2-64 YEARS AT RISK (1 Medica l Center of 3 - PCV13) [code = PNEUMOCOCCAL VACCINE 2-64 YEARS AT RISK (1 of 3 - PCV13)] Encounters Start End Encounter Admission Attending Care Care Encounter Source Date/Time Date/Time Type Type Clinicians Facility Department ID 2019-04-12 Inpatient [facility] [address] [facility] W 13:57:46 Results Test Description Test [...] to HBV infection.~~~~~ ~~~~~~~~~~~~~~~~~~~~~~~~~~~~~~~~~~~~~~~~~~~~~~~~~~~~~~~ AG HEPATITIS B [id number] 18:16:00 Test Item Value Reference Range Interpretation Comments AG HEPATITIS B SURFACE (test code = NEGATIVE NONREACTIVE HBSAG) HIV 12 AB [id number] 18:16:00 Test Item Value Reference Range Interpretation Comments HIV 1 2 COMBO AG/AB SCREEN AB/AG NON REACTIVE NONREACTIVE (test code = [id number]) HEPATITIS B SURF AB, [id number] 17:51:00 Test Item Value Reference Range Interpretation Comments HEPATITIS B SURF AB, QUANT (test code mIU/mL = HBSABQ) AG HEPATITIS B [id number] 17:51:00 Test Item Value Reference Range Interpretation Comments AG HEPATITIS B SURFACE (test code = NEGATIVE NONREACTIVE HBSAG) HIV 12 AB [id number] 17:51:00 Test Item Value Reference Range Interpretation Comments HIV 1 2 COMBO AG/AB SCREEN AB/AG NON REACTIVE NONREACTIVE (test code = [id number]) HEPATITIS B SURF AB, [id number] 17:39:00 Test Item Value Reference Range Interpretation Comments HEPATITIS B SURF AB, QUANT (test code mIU/mL = HBSABQ) AG HEPATITIS B [id number] 17:39:00 Test Item Value Reference Range Interpretation Comments AG HEPATITIS B SURFACE (test code = NEGATIVE NONREACTIVE HBSAG) HIV 12 AB [id number] 17:39:00 Test Item Value Reference Range Interpretation Comments HIV 1 2 COMBO AG/AB SCREEN (test code = NONREACTIVE [id number]) GLUCOSE BEDSIDE [id number] 12:00:00 Test Item Value Reference Range Interpretation Comments GLUCOSE BEDSIDE TESTING (test code 136 MG/DL 60-99 H = GLUBED) GLUCOSE BEDSIDE [id number] 21:08:00 Test Item Value Reference Range Interpretation Comments GLUCOSE BEDSIDE TESTING (test code = 84 MG/DL 60-99 N GLUBED) BASIC METABOLIC [id number] 16:40:00 Test Item Value Reference Range Interpretation [...] 9.0 MG/DL 8.4-10.2 N CA) HCG SERUM [id number] 16:40:00 Test Item Value Reference Range Interpretation Comments HCG SERUM QUAL (test code = HCGQL) NEGATIVE NEGATIVE A PROTHROMBIN [id number] 16:32:00 Test Item Value Reference Range Interpretation [...] sunshine embolism. 3.0 - 4.5 Comments to Mortuary Operations Manager: PREOPPTT [id number] 16:32:00 Test Item Value Reference Range Interpretation Comments PTT ACTIVATED (test code = APTT) 30.3 SECONDS 22.0-33.0 N Comments to Mortuary Operations Manager: PREOPBASIC METABOLIC [id number] 16:32:00 Test Item Value Reference Range Interpretation [...] code = CA) MG/DL 8.7-9.7 HCG SERUM [id number] 16:32:00 Test Item Value Reference Range Interpretation Comments HCG SERUM QUAL (test code = HCGQL) NEGATIVE NEGATIVE A BASIC METABOLIC [id number] 16:31:00 Test Item Value Reference Range Interpretation [...] code = CA) MG/DL 8.7-9.7 HCG SERUM [id number] 16:31:00 Test Item Value Reference Range Interpretation Comments HCG SERUM QUAL (test code = HCGQL) NEGATIVE CBC W/AUTO [id number] 16:25:00 Test Item Value Reference Range Interpretation [...] 0.00 K/mm3 0.0-0.1 N NRBC#) GLUCOSE BEDSIDE [id number] 18:41:00 Test Item Value Reference Range Interpretation Comments GLUCOSE BEDSIDE TESTING (test code = 83 MG/DL 60-99 N GLUBED) BASIC METABOLIC [id number] 15:04:00 Test Item Value Reference Range Interpretation [...] 9.1 MG/DL 8.4-10.2 N CA) BASIC METABOLIC [id number] 15:00:00 Test Item Value Reference Range Interpretation [...] code = CA) MG/DL 8.7-9.7 HCG SERUM [id number] 14:59:00 Test Item Value Reference Range Interpretation Comments HCG SERUM QUAL (test code = HCGQL) NEGATIVE NEGATIVE A PROTHROMBIN [id number] 14:56:00 Test Item Value Reference Range Interpretation [...] syste sunshine embolism. 3.0 - 4.5 PTT [id number] 14:56:00 Test Item Value Reference Range Interpretation Comments PTT ACTIVATED (test code = APTT) 27.9 SECONDS 22.0-33.0 N CBC W/AUTO [id number] 14:43:00 Test Item Value Reference Range Interpretation [...] (test code = 0.00 K/mm3 0.0-0.1 N [facility]#) RAD, CHEST, 1 VIEW, NON [id number] 11:27:00Reason for exam:->r/o pneumoniaShould this be performed [...] Verified Date/Time: 07/18/2019 11:27:35 Reading Location: [facility] Radiology Reading Room XR chest 1 view portable / [id number] 11:27:00 Interface, External Ris In - 07/18/2019 [...] Robert MDReport Verified Date/Time: 07/18/201911:27:35 Reading Location: [facility] [id number] 08:34:00 Test Item Value Reference Range Interpretation Comments POC-Glucose Meter (test 126 mg/dL 70-110 H : TE STED AT [facility] code = 1538) [address] [facility], 770 30: Handle Bender/Techni tammy ID = [id number] for Lenora Kuo ond Lab Interpretation (test Abnormal code = 38991-8) [facility]-GLUCOSE [id number] 08:34:00 Test Item Value Reference Range Interpretation Comments POC-GLUCOSE METER 126 mg/dL 70-110 H : TESTED A T [facility] 6720 (BEAKER) (test code = [place], 1538) [address]: Handle Bender/Techni tammy ID = [id number] for Baldomero Carney ECG 12 [id number] 07:35:45Interface, External Ris In - 07/18/2019 7:35 AM CSTVentricular Rate 87 BPMAtrial Rate 87 BPMP-R Interval 136 msQRS Duration 72 msQ-T Interval 380 msQTC Calculation(Bazett) 457 msP Thorofare 68 degreesR Thorofare 17 degreesT Thorofare 65 degreesNormal sinus rhythmNormal ECGWhen compared with ECG of 19-MAR-2017 15:16,QT has shortenedConfirmed by MD BROCK, LAKSHMI ([id number]) on 07/18/2019 7:35:43 [facility] metabolic [id number] 06:56:00 Test Item Value Reference Range Interpretation [...] Calcium (test code = 8.8 mg/dL 8.4-10.2 66091-6) EGFR (test code = 9 mL/min/1.73 [place] [address]-7) NOT ACCURATE CREATININE CLEARANCE IN PREDICTING GLOMERULAR FILTRATION RATE . ESTIMATED GFR I S NOT APPLICABLE FOR DIALYSIS PATIEN TS. Lab Interpretation Abnormal (test code = 87070-5) [facility] METABOLIC [id number] 06:56:00 Test Item Value Reference Range Interpretation [...] S NOT APPLICABLE FOR DIALYSIS PATIEN TS. [id number] 06:45:00 Test Item Value Reference Range Interpretation Comments Magnesium (test code = 22639-8) 2.0 mg/dL 1.6-2.6 Lab Interpretation (test code = Normal 72812-3) [facility] 06:45:00 Test Item Value Reference Range Interpretation Comments Phosphorus (test code = 2777-1) 4.6 mg/dL 2.3-4.7 Lab Interpretation (test code = Normal 51611-8) [facility]2019-12-02 06:45:00 Test Item Value Reference Range Interpretation Comments PHOSPHORUS (BEAKER) (test code = 4.6 mg/dL 2.3-4.7 604) [id number] 06:45:00 Test Item Value Reference Range Interpretation Comments MAGNESIUM (BEAKER) (test code = 2.0 mg/dL 1.6-2.6 627) CBC with platelet count + automated [id number] 05:35:00 Test Item Value Reference Range Interpretation [...] 450 K/CU MM MPV (test code = 17357-8) 9.5 fL 9.4-12.3 nRBC (test code = [...] 2801) Lab Interpretation (test code = Abnormal 74111-2) [facility] W/PLT COUNT & AUTO [id number] 05:35:00 Test Item Value Reference Range Interpretation [...] PERCENT (BEAKER) (test code = 2801) Prothrombin time/[id number] 05:24:00 Test Item Value Reference Range Interpretation [...] valves. Lab Interpretation Normal (test code = 06568-2) [facility] Area[facility] TIME/[id number] 05:24:00 Test Item Value Reference Range Interpretation [...] is2.5-3.5 for patients wiht mechanical heart valves.POCT-GLUCOSE [id number] 21:08:00 Test Item Value Reference Range Interpretation Comments POC-GLUCOSE METER 191 mg/dL 70-110 H : TESTED A T [facility] 6720 ([employer]) (test code = [facility], 1538) [address]: Handle Bender/Techni tammy ID = [id number] for Keith Quintero POCT-GLUCOSE [id number] 17:20:00 Test Item Value Reference Range Interpretation Comments POC-GLUCOSE METER 168 mg/dL 70-110 H : TESTED A T [facility] 6720 (BEAKER) (test code = [facility] Ryan [facility], 1538) [address]: Handle Bender/Techni tammy ID = [id number] for HU NT, MAVIS POCT-GLUCOSE [id number] 12:49:00 Test Item Value Reference Range Interpretation Comments POC-GLUCOSE METER 221 mg/dL 70-110 H : TESTED A T [facility] 6720 (BEAKER) (test code = [facility], 1538) [address]: Handle Bender/Techni tammy ID = [id number] for HU NT, AMVIS Screen, [id number] 11:54:00 Test Item Value Reference Range Interpretation Comments Preg Test, Ur (test code = 2112-1) Negative [facility], [id number] 11:54:00 Test Item Value Reference Range Interpretation Comments TEST URINE (BEAKER) (test Negative code = 583) POCT-GLUCOSE [id number] 09:11:00 Test Item Value Reference Range Interpretation Comments POC-GLUCOSE METER 112 mg/dL 70-110 H : TESTED A T [facility] 6720 (BEAKER) (test code = [place], 1538) [address]: Handle Bender/Techni tammy ID = [id number] for MAVIS GARRIDO BASIC METABOLIC [id number] 06:50:00 Test Item Value Reference Range Interpretation [...] S NOT APPLICABLE FOR DIALYSIS PATIEN TS. [id number] 06:38:00 Test Item Value Reference Range Interpretation Comments PHOSPHORUS (BEAKER) (test code = 3.9 mg/dL 2.3-4.7 604) [id number] 06:38:00 Test Item Value Reference Range Interpretation Comments MAGNESIUM (BEAKER) (test code = 1.9 mg/dL 1.6-2.6 627) PROTHROMBIN TIME/[id number] 06:12:00 Test Item Value Reference Range Interpretation [...] mechanical heart valves.CBC W/PLT COUNT & AUTO [id number] 06:06:00 Test Item Value Reference Range Interpretation [...] 0-1 PERCENT (BEAKER) (test code = 2801) [id number] 04:27:00 Test Item Value Reference Range Interpretation Comments RPR (test code = 56453-1) Nonreactive Nonreactive Lab Interpretation (test code = Normal 00750-6) [facility] 04:27[facility]00 Test Item Value Reference Range Interpretation Comments RPR SCREEN (BEAKER) (test code = Nonreactive Nonreactive 420) MR, MRA, BRAIN, WITHOUT [id number] 03:28:00Reason for exam:- >StrokeWhat is the patient's [...] 07/17/2019 03:28:33 MR, MRA, NECK, WITHOUT IV [id number] 03:28:00FINAL REPORT MR, BRAIN, WITHOUT CONTRAST, MR, [...] Verified Date/Time: 07/17/2019 03:28:33 MR, BRAIN, WITHOUT [id number] 03:28:00 Reason for exam:->StrokeWhat is the patient's [...] Date/Time: 07/17/2019 03:28:33 MR MRA head without [id number] 03:28:00 Interface, External Ris In - 07/17/2019 [...] Yg Conley MDReport Verified Date/Time: 07/17/2019 03:28:33 [facility] without [id number] 03:28:00Interface, External Ris In - 07/17/2019 4:57 [...] Yg Conley MDReport Verified Date/Time: 07/17/2019 03:28:33 [facility] without IV [id number] 03:28:00Interface, External Ris In - 07/17/2019 4:57 [...] Yg Conley MDReport Verified Date/Time: 07/17/2019 03:28:33 [facility]SE [id number] 21:16:00 Test Item Value Reference Range Interpretation Comments POC-GLUCOSE METER 143 mg/dL 70-110 H : TESTED A T [facility] 6720 (BEAKER) (test code = [facility], 1538) [address]: Handle Bender/Techni tammy ID = [id number] for JANELL GEORGE POCT-GLUCOSE [id number] 17:33:00 Test Item Value Reference Range Interpretation Comments POC-GLUCOSE METER 108 mg/dL 70-110 : TESTED A T [facility] 6720 (BEAKER) (test code = [facility], 1538) 58631: Handle Bender/Techni tammy ID = [id number] for TAVON DUVALL POCT-GLUCOSE [id number] 17:25:00 Test Item Value Reference Range Interpretation Comments POC-GLUCOSE METER 155 mg/dL 70-110 H : TESTED A T [facility] 6720 (BEAKER) (test code = [facility], 1538) 38[address]: Handle Bender/Techni tammy ID = [id number] for SIMON CHO HEMODIALYSIS [id number] 17:23:31Tavon Mcduffie RN 07/16/2019 5:24 PMVerified HD [...] Lab Results Component Value Date HEPBSAG Nonreactive 07/16/2019[facility] B surface [id number] 14:30:00 Test Item Value Reference Range Interpretation Comments HBsAg Screen (test code = 5195-3) Nonreactive Nonreactive Lab Interpretation (test code = Normal 66331-8) [facility] B SURFACE [id number] 14:30:00 Test Item Value Reference Range Interpretation Comments HEPATITIS B SURFACE ANTIGEN (2) Nonreactive Nonreactive (BEAKER) (test code = 2585) 2D Echo W/Doppler(CW/PW/Color)2019-07-16 14:11:04Ejection FractionSLEH ECHO HEARTLAB MKCKESSON CPACSInterface, External Ris In - 07/16/2019 2:11 PM C STTransthoracic Echocardiography Report (TTE) Demographics Patient Name GIGI CONROY Date of Study 07/16/2019 Gender Female Visit Number [id number] Race Unknown Room Number 7605 Number Date of 1975 Referring [facility] Phys[facility] Age 43 year(s) Fitness Assistant Daja Arthur, [facility] Solar Pv Installer Yanna Mcdonald Interpreting Marcella Yanez MD [place] Physician Procedure Type [...] TR Velocity: 2.31 m/s TR Gradient: 21.42 mmHgKindred Hospital - [facility] AreaPOCT- GLUCOSE [id number] 12:17:00 Test Item Value Reference Range Interpretation Comments POC-GLUCOSE METER 146 mg/dL 70-110 H : TESTED A T [facility] 6720 (BEAKER) (test code = [facility] Ryan [facility], 1538) [address]: Handle Bender/Techni tammy ID = [id number] for MAVIS GARRIDO BASIC METABOLIC [id number] 09:26:00 Test Item Value Reference Range Interpretation [...] NOT APPLICABLE FOR DIALYSIS PATIEN TS. POCT-GLUCOSE [id number] 08:27:00 Test Item Value Reference Range Interpretation Comments POC-GLUCOSE METER 106 mg/dL 70-110 : TESTED A T [facility] 6720 (BEAKER) (test code = [facility] Ryan [place], 1538) [address]: Handle Bender/Techni tammy ID = [id number] for SIMON CHO POCT-GLUCOSE [id number] 07:46:00 Test Item Value Reference Range Interpretation Comments POC-GLUCOSE METER 171 mg/dL 70-110 H : [facility] CENTER 67[address] (BEAKER) (test code SAYDA [facility], = 1538) [address]: Handle Bender/Techni tammy ID = [id number] for YASMINE VO RAD, CHEST, 1 VIEW, NON [id number] 07:36:00Reason for exam:- >baselineShould this be performed [...] tricuspid valve. Low lung volumes. Signed: Swapnil Cehry MDReport Verified Date/Time: 07/16/2019 07:36:01 Reading Location: [address] Body Reading Room Hemoglobin [id number] 06:42:00 Test Item Value Reference Range Interpretation Comments Hemoglobin A1C (test code = 4548-4) 9.5 % 4.3-6.1 H Lab Interpretation (test code = Abnormal 09158-3) [facility] [id number] 06:42:00 Test Item Value Reference Range Interpretation Comments HEMOGLOBIN A1C (BEAKER) (test code = 9.5 % 4.3-6.1 H 368) BASIC METABOLIC [id number] 06:27:00 Test Item Value Reference Range Interpretation [...] DIALYSIS PATIEN TS. HIV-1 Antigen with HIV-1/2 [id number] 05:52:00 Test Item Value Reference Range Interpretation Comments HIV-1 Antigen with HIV 1&2 Nonreactive Nonreactive Antibody (test code = 78159-3) Lab Interpretation (test code = Normal 14022-9) [facility] ANTIGEN WITH HIV-1/2 [id number] 05:52:00 Test Item Value Reference Range Interpretation Comments HIV-1 ANTIGEN WITH HIV 1\T\2 Nonreactive Nonreactive ANTIBODY (2) (AKER) (test code = 2586) POCT-GLUCOSE [id number] 05:38:00 Test Item Value Reference Range Interpretation Comments POC-GLUCOSE METER 420 mg/dL 70-110 HH : Notified RN/MD: TESTED (TAINA) (test code AT [facility] [address] = 1538) [facility], [facility] 30: Handle Bender/Techni tammy ID = [id number] for YASMINE VO TSH/Free T4 If [id number] 05:11:00 Test Item Value Reference Range Interpretation Comments TSH (test code = 44894-0) 0.87 0.35- 4.94 uIU/mL Lab Interpretation (test code = Normal 83585-2) [facility]it[facility] B12 and [id number] 05:11:00 Test Item Value Reference Range Interpretation Comments Vitamin B12 (test code = 2132-9) 525 pg/mL 213-816 Folate (test code = 2284-8) 6.5 ng/mL >=7.0 L Lab Interpretation (test code = Abnormal 85934-3) [facility] T[facility] IF [id number] 05:11:00 Test Item Value Reference Range Interpretation Comments THYROID STIMULATING HORMONE 0.87 uIU/mL 0.35-4.94 (BEAKER) (test code = 772) VITAMIN B12 AND [id number] 05:11:00 Test Item Value Reference Range Interpretation Comments VITAMIN B12 (BEAKER) (test code = 525 pg/mL 213-816 774) FOLATE (BEAKER) (test code = 362) 6.5 ng/mL >=7.0 L BASIC METABOLIC [id number] 04:57:00 Test Item Value Reference Range Interpretation [...] NOT APPLICABLE FOR DIALYSIS PATIEN TS. Lipid [id number] 04:47:00 Test Item Value Reference Range Interpretation Comments Triglycerides (test 100 mg/dL code = 2571-8) Cholesterol (test code 177 mg/dL = 2093-3) HDL (test code = 48 mg/dL 2085-9) LDL Calculated (test 109 mg/dL code = 50507-6) YAKELIN (test code = YAKELIN) Triglyceride Reference Range: Low Risk <150 Borderline 150-199 High Risk 200-499 Very High Risk >=500 Cholesterol Reference Range: Low Risk <200 Borderline 200-239 High Risk >240 HDL Cholesterol Reference Range: Low Risk >=60 High Risk <40 LDL Cholesterol Reference Range: Optimal <100 Near Optimal 100-129 Borderline 130-159 High 160-189 Very High >=190 [facility] function [id number] 04:47:00 Test Item Value Reference Range Interpretation Comments Protein, Total (test code = 2885-2) 6.3 6.0- 8.3 gm/dL Albumin (test code = 28970-0) 3.0 g/dL 3.5-5 L Total Bilirubin (test code = 0.4 mg/dL 0.2-1.2 1974-2) Bilirubin, Direct (test code = 0.2 mg/dL 0.1-0.5 7) Alkaline Phosphatase (test code = 182 U/L 40-150 H 6768-6) AST (test code = 1920-8) 63 U/L 5-34 H ALT (test code = 1742-6) 99 U/L 6-55 H Lab Interpretation (test code = Abnormal 16699-9) [facility]OS[facility]2019-11-30 04:47:00 Test Item Value Reference Range Interpretation Comments PHOSPHORUS (BEAKER) (test code = 5.5 mg/dL 2.3-4.7 H 604) [id number] 04:47:00 Test Item Value Reference Range Interpretation Comments MAGNESIUM (BEAKER) (test code = 2.0 mg/dL 1.6-2.6 627) LIPID [id number] 04:47:00 Test Item Value Reference Range Interpretation [...] 130-159 High 160-189 Very High >=190HEPATIC FUNCTION [id number] 04:47:00 Test Item Value Reference Range Interpretation [...] = 99 U/L 6-55 H 347) PROTHROMBIN TIME/[id number] 04:11:00 Test Item Value Reference Range Interpretation [...] mechanical heart valves.CBC W/PLT COUNT & AUTO [id number] 04:03:00 Test Item Value Reference Range Interpretation [...] PERCENT (BEAKER) (test code = 2801) POCT-GLUCOSE [id number] 03:47:00 Test Item Value Reference Range Interpretation Comments POC-GLUCOSE METER > mg/dL 70-110 HH : Notified RN/MD: TESTED (BEAKER) (test code = AT [facility] [address] [address]) [place] [address] 30: Handle Bender/Techni tammy ID = [id number] for SYLVIA JONES FACTOR 5 LEIDEN PCR (THROMBOTIC RISK)2017-03-24 19:24:00 Test Item Value Reference Range Interpretation Comments FACTOR V LEIDEN Negative for the R506Q ([facility]) (test code = (Factor V Leiden) 718) mutation [id number] Martínez Wang MD ([facility]) (test code = (electronic signature) 7410) This test is a genotyping assay which [...] was developed and [facility], Section of Molecular Pathology. It has not been cleared or approved by the U.S. Food and Drug Administration (FDA), since FDA approval is not requ ired for clinical use of the test. Validation was done as required by the Clinical Laboratory Improvement Amendments of 1988.POCT-GLUCOSE [id number] 07:28:00 Test Item Value Reference Range Interpretation Comments POC-GLUCOSE METER 200 mg/dL 70-110 H TESTED AT [place] [address] ([facility]) (test code = [facility] 1538) [address] POCT-GLUCOSE [id number] 21:18:00 Test Item Value Reference Range Interpretation Comments POC-GLUCOSE METER 211 mg/dL 70-110 H TESTED AT [place] [address] ([facility]) (test code = [facility] 1538) [address] PROTEIN, RANDOM [id number] 19:43:00 Test Item Value Reference Range Interpretation Comments PROTEIN, URINE ([facility]) (test code 286 mg/dL 0-14 H = 1569) CREATININE, RANDOM [id number] 18:27:00 Test Item Value Reference Range Interpretation Comments CREATININE URINE ([facility]) (test 29.3 mg/dL code = 375) Reference Range: No NormalsDILUTE SHIRA VIPER VENOM (DRVV)2017-03-19 12:47:00 Test Item Value Reference Range Interpretation Comments PROTIME ([facility]) (test 11.3 seconds 11.7-14.7 L code = 759) INR ([facility]) (test code 0.8 <=5.9 = 370) PARTIAL THROMBOPLASTIN 28.0 seconds 22.5-36.0 TIME (BEAKER) (test code = 760) DRVV INTERPRETATION Normal DRVV Results (BEAKER) (test code = 6326) DRVV INTERPRETATION Normal Hexagonal (BEAKER) (test code = Phospholipid 801288) [id number] Martínez Wang MD ([facility]) (test code = (electronic 2610) signature) DRVV SCREEN RATIO 0.84 <1.20 (BEAKER) (test code = 2630) Effective 12/20/2013: Test Method ChangeDRVV Screen Ratio, DRVV 1/1 Screen Ratio, DRVV Confirm Ratio,DRVV Normalized Ratio Reference Range: <1.2Protime Reference Range ChangeNew: 11.7-14.7 Previous: 9.8-12.0PTT Reference Range ChangeNew: 22.5-36.0 Previous: 25.8-34.5URINE [id number] 11:40:00 Test Item Value Reference Range Interpretation Comments CULTURE ([facility]) (test 20-29,000 col/mL skin code = 1095) lei POCT-GLUCOSE [id number] 08:33:00 Test Item Value Reference Range Interpretation Comments POC-GLUCOSE METER 293 mg/dL 70-[address] [facility] 6720 ([facility]) (test code = [address] [place] 1538) [address] VITAMIN D, [id number] 07:49:00 Test Item Value Reference Range Interpretation Comments VITAMIN D 25-OH ([facility]) (test code = < ng/mL 13.0-47.8 L 2764) CBC W/PLT COUNT & AUTO [id number] 05:59:00 Test Item Value Reference Range Interpretation Comments WHITE BLOOD CELL COUNT (AKER) 9.4 K/ L 3.5-10.5 (test code = 775) RED BLOOD CELL COUNT (AKER) 4.16 M/ L 3.93-5.22 (test code = 761) HEMOGLOBIN (BEAKER) (test code = 12.7 GM/DL 11.2-15.7 410) HEMATOCRIT (BEAKER) (test code = 38.0 % 34.1-44.9 411) MEAN CORPUSCULAR VOLUME (BEAKER) 91.3 fL 79.4-94.8 (test code = 753) [...] (BEAKER) (test code = 2801) BASIC METABOLIC [id number] 05:38:00 Test Item Value Reference Range Interpretation [...] S NOT APPLICABLE FOR DIALYSIS PATIEN TS. [id number] 05:37:00 Test Item Value Reference Range Interpretation Comments PHOSPHORUS (BEAKER) (test code = 4.1 mg/dL 2.3-4.7 604) [id number] 05:37:00 Test Item Value Reference Range Interpretation Comments MAGNESIUM (BEAKER) (test code = 1.7 mg/dL 1.6-2.6 627) PTH, [id number] 05:34:00 Test Item Value Reference Range Interpretation Comments PARATHYROID HORMONE INTACT 57.2 pg/mL 8.5-72.5 (BEAKER) (test code = 577) Effective 07/04/2014: Reference Range ChangeNew: 8.5-72.5 Previous: 15.0-90.0 CARDIOLIPIN ANTIBODIES, IGG AND [id number] 22:36:00 Test Item Value Reference Range Interpretation Comments ANTICARDIOLIPIN IGG ANTIBODY (BEAKER) < GPL (test code = 712) ANTICARDIOLIPIN IGM ANTIBODY (BEAKER) 2.8 MPL (test code = 713) Anticardiolipin IgG Result Interpretation:NEG: <20 GPL; U/mlPOS: >/=20 GPL; U/mlAnticardiolipin IgM Result Interpretation:NEG: <20 MPL; U/mlPOS: >/=20 MPL; U/mlPOCT-GLUCOSE [id number] 21:25:00 Test Item Value Reference Range Interpretation Comments POC-GLUCOSE METER 198 mg/dL 70-110 H TESTED AT [place] [address] ([facility]) (test code = [address] [place] 1538) [address] POCT-GLUCOSE [id number] 16:29:00 Test Item Value Reference Range Interpretation Comments POC-GLUCOSE METER 296 mg/dL 70-110 H TESTED AT [place] [address] ([facility]) (test code = [address] [facility] 1538) [address] ANTI-NUCLEAR ANTIBODY (MARY)2017-03-18 15:30:00 Test Item Value Reference Range Interpretation Comments ANTI-NUCLEAR ANTIBODY (MARY) (BEAKER) Negative Negative (test code = 418) HEXAGONAL [id number] 13:21:00 Test Item Value Reference Range Interpretation Comments H[facility]AGONAL [facility]OLIPID [facility] Negative (test code = 1790) POCT-GLUCOSE [id number] 12:15:00 Test Item Value Reference Range Interpretation Comments POC-GLUCOSE METER 140 mg/dL 70-110 H TESTED AT [place] [address] ([facility]) (test code = [facility] Isabel [facility] 1538) [address] PROTEIN C [id number] 11:44:00 Test Item Value Reference Range Interpretation Comments PROTEIN C ACTIVITY (BEAKER) (test 155.0 % 70.0-130.0 H code = 582) Effective 12/20/2013: Reference Range Change-Adult onlyNew: 70.0-130.0 Previous: 70.0-140.0See Protein C Antigen.ANTITHROMBIN [id number] 11:43:00 Test Item Value Reference Range Interpretation Comments ANTITHROMBIN III ACTIVITY (BEAKER) 87.0 % 80.0-120.0 (test code = 711) Effective 12/20/2013: Reference Range Change-Adult onlyNew: 80.0-120.0 Previous: 90.0-128.0POCT-GLUCOSE [id number] 08:17:00 Test Item Value Reference Range Interpretation Comments POC-GLUCOSE METER 107 mg/dL 70-110 TESTED AT [place] [address] ([facility]) [facility] 1538) [address] BASIC METABOLIC [id number] 06:32:00 Test Item Value Reference Range Interpretation [...] PATIEN TS. CBC W/PLT COUNT & AUTO [id number] 05:56:00 Test Item Value Reference Range Interpretation [...] PERCENT (BEAKER) (test code = 2801) POCT-GLUCOSE [id number] 04:32:00 Test Item Value Reference Range Interpretation Comments POC-GLUCOSE METER 107 mg/dL 70-110 TESTED AT [place] [address] ([facility]) (test code = [address] [facility] 1538) [address] POCT-GLUCOSE [id number] 22:21:00 Test Item Value Reference Range Interpretation Comments POC-GLUCOSE METER 118 mg/dL 70-110 H TESTED AT [place] [address] ([facility]) (test code = [address] [facility] 1538) [address] POCT-GLUCOSE [id number] 21:22:00 Test Item Value Reference Range Interpretation Comments POC-GLUCOSE METER 52 mg/dL 70-110 L Notified Isabel Ro MD/TESTED AT ([facility]) (test code = [place] [address] [address] 1538) [facility] [address] MICROALBUMIN, RANDOM [id number] 17:57:00 Test Item Value Reference Range Interpretation Comments MICROALBUMIN URINE (AKER) (test > mg/dL code = 1794) Reference Range: No NormalsURINALYSIS W/ [id number] 17:36:00 Test Item Value Reference Range Interpretation [...] 516) SOURCE(BEAKER) (test code = Urine, Voided 1872) SCREEN, [id number] 17:36:00 Test Item Value Reference Range Interpretation Comments TEST URINE (BEAKER) (test Negative code = 583) CREATININE, RANDOM [id number] 17:35:00 Test Item Value Reference Range Interpretation Comments CREATININE URINE (BEAKER) (test 33.9 mg/dL code = 375) Reference Range: No NormalsSODIUM, RANDOM [id number] 17:35:00 Test Item Value Reference Range Interpretation Comments SODIUM URINE (BEAKER) (test code = 63 meq/L 243) Reference Range: No NormalsPOCT-GLUCOSE [id number] 17:34:00 Test Item Value Reference Range Interpretation Comments POC-GLUCOSE METER 118 mg/dL 70-110 H TESTED AT [place] [address] ([facility]) (test code = [place] [place] 1538) [address] POCT-GLUCOSE [id number] 13:28:00 Test Item Value Reference Range Interpretation Comments POC-GLUCOSE METER 71 mg/dL 70-110 TESTED AT [place] [address] (BEAKER) (test code = [place] [address] 1538) POCT-GLUCOSE [id number] 10:37:00 Test Item Value Reference Range Interpretation Comments POC-GLUCOSE METER 144 mg/dL 70-110 H TESTED AT [place] [address] (BEAKER) (test code = [facility] Isabel [facility] 1538) [address] POCT-GLUCOSE [id number] 07:18:00 Test Item Value Reference Range Interpretation Comments POC-GLUCOSE METER 60 mg/dL 70-110 L TESTED AT [place] [address] (BEAKER) (test code = [facility] Isabel [facility] [address] 1538) CBC W/PLT COUNT & AUTO [id number] 05:51:00 Test Item Value Reference Range Interpretation [...] (BEAKER) (test code = 2801) BASIC METABOLIC [id number] 05:51:00 Test Item Value Reference Range Interpretation [...] NOT APPLICABLE FOR DIALYSIS PATIEN TS. POCT-GLUCOSE [id number] 21:41:00 Test Item Value Reference Range Interpretation Comments POC-GLUCOSE METER 287 mg/dL 70-[address] [facility] 6720 (BEAKER) (test code = [address] [place] 1538) [address] BASIC METABOLIC [id number] 12:35:00 Test Item Value Reference Range Interpretation [...] report . CBC W/PLT COUNT & AUTO [id number] 04:54:00 Test Item Value Reference Range Interpretation [...] 0-1 PERCENT (BEAKER) (test code = 2801) [id number] 20:17:00 Test Item Value Reference Range Interpretation Comments RPR SCREEN (BEAKER) (test code = Nonreactive Nonreactive 420) POCT-GLUCOSE [id number] 18:09:00 Test Item Value Reference Range Interpretation Comments POC-GLUCOSE METER 215 mg/dL 70-[address] [facility] 6720 (BEAKER) (test code = [place] [place] 1538) [address] CBC W/PLT COUNT & AUTO [id number] 11:54:00 Test Item Value Reference Range Interpretation [...] (BEAKER) (test code = Normal 762) SEDIMENTATION [id number] 10:27:00 Test Item Value Reference Range Interpretation Comments SEDIMENTATION RATE, ERYTHROCYTE 79 mm/HR 0-20 H (BEAKER) (test code = 766) HEMOGLOBIN [id number] 09:33:00 Test Item Value Reference Range Interpretation Comments HEMOGLOBIN A1C (BEAKER) (test code = 9.8 % 4.3-6.1 H 368) VITAMIN [id number] 09:14:00 Test Item Value Reference Range Interpretation Comments VITAMIN B12 (BEAKER) (test code = 1790 pg/mL 213-816 H 774) TSH/FREE T4 IF [id number] 09:14:00 Test Item Value Reference Range Interpretation Comments THYROID STIMULATING HORMONE 1.08 uIU/mL 0.35-4.94 (BEAKER) (test code = 772) BASIC METABOLIC [id number] 08:52:00 Test Item Value Reference Range Interpretation [...] DATA TO CALCULA TE ESTIMATED GFR. FastingLIPID [id number] 08:51:00 Test Item Value Reference Range Interpretation [...] High 160-189 Very High >=190 FastingHCG, QUANTITATIVE, [id number] 01:43:00 Test Item Value Reference Range Interpretation Comments GONADOTROPIN, CHORIONIC (HCG) QUANT < mIU/mL 0-10 (BEAKER) (test code = 649) Non- Females: <10 mIU/mL Females: Gestation Age Reference Range(mIU/mL) 0.2-1 Week 5-50 1-2 Weeks 50-500 2-3 Weeks 100-5,000 3-4Weeks 500-10,000 4-5 Weeks 1,000-50,000 5-6 Weeks 10,000-100,000 6-8 Weeks 15,000-200,000 2-3 Months 10,000-100,000COMPREHENSIVE METABOLIC [id number] 21:57:00 Test Item Value Reference Range Interpretation [...] L (test code = 697) AST (SGOT) ([facility]) 16 U/L 5-34 (test code = 353) ALT (SGPT) ([facility]) 14 U/L 6-55 (test code = 347) EGFR ([facility]) (test mL/min/1.73 INSUFFIC IENT code = 1092) sq m CLINICAL DATA T O CALCULATE ESTIM ATED GFR. Unit CollectPOCT-GLUCOSE [id number] 21:50:00 Test Item Value Reference Range Interpretation Comments POC-GLUCOSE METER 278 mg/dL 70-[address] [facility] 6720 ([facility]) (test code = [place] [place] 1538) [address]
[2020-04-23] MEDS ORDERED: HYDROMORPHONE HCL 1 MG/ML INJ ONE ×4 (08:02→22:52)
[2020-04-23] MEDS ORDERED: ONDANSETRON 4 MG/2 ML VIAL ONE ×3 (08:02→20:38)
[2020-04-23 08:38] LABS: Protime INR 0.91
[2020-04-23] MEDS ORDERED: CLINDAMYCIN 600MG/D5W 600 MG/50 ML BAG IV ONE (08:50)
[2020-04-23] MEDS ORDERED: LORazepam 2 MG/ML VIAL ONE (08:51)
--- NOTE | 2020-04-23 08:57 | RAD REPORT ---
EXAM DESCRIPTION: RAD - Foot Right 3 View - 04/23/2020 8:31 am CLINICAL HISTORY: PAIN COMPARISON: No comparisons FINDINGS: No fracture or dislocation. Underlying joint degenerative changes are mild. Lucency is pre sent in the medial head first proximal phalanx and there are subtle cortical thinning and lucent moyer ges and the base of the first distal phalanx. In the setting of a soft tissue infection, findings are concerning for early osteomyelitis. No other evidence for bone destruction or acute bone process. Arterial tree calcifications are presen t. No air or foreign body in the soft tissues. IMPRESSION: Subtle lucent changes in the base of the first distal phalanx and head of the first prox imal phalanx concerning for early osteomyelitis.
[2020-04-23 09:19] LABS: RBC Red Blood Cell Count 3.01 M/uL (3.86-4.86)
[2020-04-23 09:21] LABS: Lymphocytes % 10.7 % (15.3-44.8)
[2020-04-23 09:22] LABS: Absolute Lymphocytes (CBC) 1.3 K/uL (0.7-4.9); Basophils % 0.5 % (0-1.3)
[2020-04-23 09:48] LABS: ALT/SGPT 18 U/L (12-78); AST/SGOT 20 U/L (15-37); Albumin 2.6 g/dL (3.4-5.0); Alkaline Phosphatase 232 U/L (45-117); Amylase 49 U/L (25-115); BUN Blood Urea Nitrogen 91 mg/dL (7-18); Bicarbonate 22 mmol/L (21-32); Bilirubin Direct 0.2 mg/dL (0-0.2); Bilirubin Total 0.4 mg/dL (0.2-1.0); CKMB Creatine Kinase MB < 1.0 ng/mL (0.3-3.6); Creatine Phosphokinase 29 U/L (26-192); Lipase 272 U/L (73-393); Potassium 5.2 mmol/L (3.5-5.1); Protein, Total 7.2 g/dL (6.4-8.2); Sodium Level 126 mmol/L (136-145); Troponin (Emerg Dept Use Only) 0.03 ng/mL (0.0-0.045)
[2020-04-23 09:50] LABS: Glucose Level 711 mg/dL (74-106)
--- NOTE | 2020-04-23 09:55 | EDPHYS ---
Physician Documentation [facility] Name: Archana Woo Age: 44 yrs Sex: Female : 1975 Arrival Date: 04/23/2020 Time: 07:41 Bed 13 Private MD: ED Physician Everett Phillips HPI: 04/23 09:44 This 44 yrs old Female presents to ER via EMS with complaints of Toe Injury, ma2 Anxiety. 09:44 Context: great toe ulcer and pain and cellulitis for 1 month got worse last 4 days . ma2 Onset: The symptoms/episode began/occurred gradually, 1 month(s) ago. Associated signs and symptoms: Pertinent negatives: numbness, swelling, vomiting, warmth. Severity of symptoms: At their worst the symptoms were mild. The patient has not experienced similar symptoms in the past. Historical: - Allergies: 07:48 No Known Allergies; bp - Home Meds: 07:48 calcitriol 0.25 mcg Oral cap 1 cap [Active]; docusate sodium 100 mg Oral cap 1 cap once bp daily [Active]; furosemide 80 mg Oral tab 1 tab 2 times per day [Active]; hydralazine 25 mg Oral tab 1 tab 4 times per day [Active]; Hydrocodone-Acetaminophen Oral [Active]; Lantus 100 unit/mL Sub-Q soln 100 unit/mL [Active]; metformin 500 mg Oral tab 1 tab 2 times per day [Active]; - PMHx: 07:48 BLIND; CVA; Depression; Diabetes - NIDDM; dialysis W \T\ F; GERD; Hyperlipidemia; bp Hypertension; left arm paralysis; neuropathy; THYROID CANCER; TIA; - Immunization history:: Adult Immunizations unknown. - Social history:: Smoking status: Patient denies any tobacco usage or history of. Patient/guardian denies using alcohol, street drugs. - Family history:: not pertinent. ROS: 09:44 MS/extremity: Positive for pain, swelling. ma2 09:44 Constitutional: Negative for fever, chills, and weight loss, Cardiovascular: Negative for chest pain, palpitations, and edema, Respiratory: Negative for shortness of breath, cough, wheezing, and pleuritic chest pain. 09:44 All other systems are negative. Exam: 09:44 Constitutional: This is a well developed, well nourished patient who is awake, alert, ma2 and in no acute distress. Head/Face: Normocephalic, atraumatic. Eyes: Pupils equal round and reactive to light, extra-ocular motions intact. Lids and lashes normal. Conjunctiva and sclera are non-icteric and not injected. Cornea within normal limits. Periorbital areas with no swelling, redness, or edema. ENT: Nares patent. No nasal discharge, no septal abnormalities noted. Tympanic membranes are normal and external auditory canals are clear. Oropharynx with no redness, swelling, or masses, exudates, or evidence of obstruction, uvula midline. Mucous membranes moist. Neck: Trachea midline, no thyromegaly or masses palpated, and no cervical lymphadenopathy. Supple, full range of motion without nuchal rigidity, or vertebral point tenderness. No Meningismus. Chest/axilla: Normal chest wall appearance and motion. Nontender with no deformity. No lesions are appreciated. Cardiovascular: Regular rate and rhythm with a normal S1 and S2. No gallops, murmurs, or rubs. Normal PMI, no JVD. No pulse deficits. Respiratory: Lungs have equal breath sounds bilaterally, clear to auscultation and percussion. No rales, rhonchi or wheezes noted. No increased work of breathing, no retractions or nasal flaring. Abdomen/GI: Soft, non-tender, with normal bowel sounds. No distension or tympany. No guarding or rebound. No evidence of tenderness throughout. Skin: Warm, dry with normal turgor. Normal color with no rashes, no lesions, and no evidence of cellulitis. MS/ Extremity: right foot ulcer and foot cellulitis no puss or fluctuencePulses equal, no cyanosis. Neurovascular intact. Full, normal range of motion. Neuro: Awake and alert, GCS 15, oriented to person, place, time, and situation. Cranial nerves II-XII grossly intact. Motor strength 5/5 in all extremities. Sensory grossly intact. Cerebellar exam normal. Normal gait. Vital Signs: 07:44 BP 200 / 100; Pulse 100; Resp 20; Temp 97.8; Pulse Ox 87% on R/A; bp 08:22 BP 206 / 92; Pulse 99; Resp 16; Pulse Ox 94% on 2 lpm NC; mh5 09:00 BP 174 / 73; Pulse 87; Resp 15; Pulse Ox 95% ; bp 10:00 BP 183 / 90; Pulse 95; Resp 13; Pulse Ox 100% ; bp 11:00 BP 177 / 80; Pulse 93; Resp 14; Pulse Ox 95% ; bp 12:00 BP 180 / 78; Pulse 88; Resp 12; Pulse Ox 95% ; bp 13:00 BP 186 / 88; Pulse 91; Resp 12; Pulse Ox 95% ; bp 14:00 BP 169 / 80; Pulse 90; Resp 14; Temp 98; Pulse Ox 95% ; iw MDM: 07:45 Patient medically screened. ma2 09:44 Differential diagnosis: sprain, foreign body, penetrating trauma, arthritis, gout. Data ma2 reviewed: vital signs, nurses notes. Counseling: I had a detailed discussion with the patient and/or guardian regarding: the historical points, exam findings, and any diagnostic results supporting the discharge/admit diagnosis, the presence of at least one elevated blood pressure reading (>120/80) during this emergency department visit, the need for outpatient follow up. Response to treatment: There is no appreciated change of the patient's symptoms at this time, the patient's symptoms have mildly improved after treatment. 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 04/23 07:47 Order name: C-Reactive Protein [facility] 04/23 07:47 Order name: Amylase, Serum 04/23 07:47 Order name: Basic Metabolic Panel 04/23 07:47 Order name: Blood Culture Adult (2) [facility] 04/23 07:47 Order name: CBC with Diff; Complete Time: 09:37 [facility] 04/23 07:47 Order name: Ckmb [facility] 04/23 07:47 Order name: CPK [facility] 04/23 07:47 Order name: Lactate [facility] 04/23 07:47 Order name: LFT's [facility] 04/23 07:47 Order name: Lipase 04/23 07:47 Order name: Procalcitonin 04/23 07:47 Order name: Protime (+inr); Complete Time: 09:37 [facility] 04/23 07:47 Order name: Ptt, Activated; Complete Time: 09:37 [facility] 04/23 07:47 Order name: Troponin (emerg Dept Use Only) [facility] 04/23 07:47 Order name: Urine Microscopic Only ma2 04/23 07:47 Order name: Basic Metabolic Panel EDMS 04/23 07:50 Order name: Foot Right 3 View XRAY; Complete Time: 09:37 co2 04/23 08:30 Order name: Glucose bp 04/23 08:39 Order name: Glucose, Ancillary Testing; Complete Time: 09:37 EDMS 04/23 10:50 Order name: HCV w/reflex PCR EDMS 04/23 10:50 Order name: Hep B Core Ab, Tot/reflex IgM EDMS 04/23 10:50 Order name: Hep B Surface AG w/ Confirm EDMS 04/23 10:50 Order name: Hepatitis B Surface Antibody EDMS 04/23 13:57 Order name: Glucose, Ancillary Testing EDMS 04/23 07:47 Order name: Accucheck; Complete Time: 08:29 co2 04/23 07:47 Order name: Cardiac monitoring; Complete Time: 08:21 co2 04/23 07:47 Order name: EKG - Nurse/Tech; Complete Time: 08:08 co2 04/23 07:47 Order name: IV Saline Lock - Large Bore; Complete Time: 08:29 co2 04/23 07:47 Order name: Labs collected and sent; Complete Time: 08:29 [facility] 04/23 07:47 Order name: O2 Per Protocol; Complete Time: 08:29 [facility] 04/23 07:47 Order name: O2 Sat Monitoring; Complete Time: 08:29 [facility] 04/23 08:46 Order name: Labs - recollect needed: everything; Complete Time: 09:01 04/23 11:08 Order name: CONS Physician Consult EDDE Administered Medications: 08:00 Drug: Dilaudid 1 mg Route: IVP; Site: right hand; bp 08:30 Follow up: Response: No change in condition bp 08:00 Drug: Zofran (Ondansetron) 4 mg Route: IVP; Site: right hand; bp 08:30 Follow up: Response: No adverse reaction bp 08:30 Drug: Clindamycin 600 mg Route: IVPB; Infused Over: 30 mins; Site: right hand; bp 13:22 Follow up: IV Status: Completed infusion; IV Intake: 50ml bp 08:40 Drug: Dilaudid 1 mg Route: IVP; Site: right hand; bp 09:01 Follow up: Response: Pain is decreased bp 08:40 Drug: Ativan 1 mg Route: IVP; Site: right hand; bp 09:01 Follow up: Response: Anxiety decreased bp 09:45 Drug: Insulin Regular Human 10 units {Co-Signature: ja1 (Burt Oliva RN).} Route: IVP; bp Site: right hand; 13:22 Follow up: Response: No adverse reaction bp 09:45 Drug: NS 0.9% 500 ml Route: IV; Rate: 125 ml/hr; Site: right hand; bp 13:21 Follow up: IV Status: Completed infusion; IV Intake: 500ml bp Disposition: 04/23/20 09:54 Hospitalization ordered by Russ Canales for Inpatient Admission. Preliminary diagnosis are Severe sepsis without septic shock, Cellulitis of right lower limb, Elevated blood glucose level. - Bed requested for Telemetry/MedSurg (Inpatient). - Status is Inpatient Admission. eb - Condition is Stable. - Problem is new. - Symptoms are unchanged. Signatures: Dispatcher [employer] EDMargarita Nichols RN RN Jesus Sanford RN RN Everett Phillips MD MD ma2 Michelle Seay Burt Oliva RN ja1 Corrections: (The following items were deleted from the chart) 09:03 07:47 Urine Dipstick-Ancillary ordered. ma2 bp 14:25 09:54 Hospitalization Ordered by Russ Canales MD for Inpatient Admission. Preliminary eb diagnosis is Severe sepsis without septic shock; Cellulitis of right lower limb; Elevated blood glucose level. Bed requested for Telemetry/MedSurg (Inpatient). Status is Inpatient Admission. Condition is Stable. Problem is new. Symptoms are unchanged. ma2
--- NOTE | 2020-04-23 09:55 | ER ---
Nurse's Notes [facility] Name: Archana Woo Age: 44 yrs Sex: Female : 1975 Arrival Date: 04/23/2020 Time: 07:41 Bed 13 Private MD: Diagnosis: Severe sepsis without septic shock;Cellulitis of right lower limb;Elevated blood glucose level Presentation: 04/23 07:44 Chief complaint: EMS states: R GREAT TOE INFECTION. Coronavirus screen: At this time, bp the client does not indicate any symptoms associated with coronavirus-19. Ebola Screen: No symptoms or risks identified at this time. Initial Sepsis Screen: Does the patient meet any 2 criteria? HR > 90 bpm. No. Patient's initial sepsis screen is negative. Does the patient have a suspected source of infection? No. Patient's initial sepsis screen is negative. Risk Assessment: Do you want to hurt yourself or someone else? Patient reports no desire to harm self or others. Onset of symptoms is unknown. Care prior to arrival: BGL HIGH. 07:44 Method Of Arrival: EMS: [facility] bp 07:44 Acuity: TARUN 3 bp Triage Assessment: 07:45 General: Appears distressed, uncomfortable, Behavior is cooperative, agitated, anxious, bp crying. Pain: Complains of pain in right foot and left foot. EENT: BLIND AT BASELINE. Neuro: No deficits noted. Cardiovascular: No deficits noted. Respiratory: No deficits noted. GI: No signs and/or symptoms were reported involving the gastrointestinal system. : No signs and/or symptoms were reported regarding the genitourinary system. Derm: No deficits noted. Musculoskeletal: Reports pain in right foot and left foot. Injury Description: RIGHT GREAT TOE NON-HEALING WOUND WITH SURROUNDING ERYTHEMA/EDEMA. Historical: - Allergies: 07:48 No Known Allergies; bp - Home Meds: 07:48 calcitriol 0.25 mcg Oral cap 1 cap [Active]; docusate sodium 100 mg Oral cap 1 cap once bp daily [Active]; furosemide 80 mg Oral tab 1 tab 2 times per day [Active]; hydralazine 25 mg Oral tab 1 tab 4 times per day [Active]; Hydrocodone-Acetaminophen Oral [Active]; Lantus 100 unit/mL Sub-Q soln 100 unit/mL [Active]; metformin 500 mg Oral tab 1 tab 2 times per day [Active]; - PMHx: 07:48 BLIND; CVA; Depression; Diabetes - NIDDM; dialysis W \T\ F; GERD; Hyperlipidemia; bp Hypertension; left arm paralysis; neuropathy; THYROID CANCER; TIA; - Immunization history:: Adult Immunizations unknown. - Social history:: Smoking status: Patient denies any tobacco usage or history of. Patient/guardian denies using alcohol, street drugs. - Family history:: not pertinent. Screenin:45 Abuse screen: Denies threats or abuse. Denies injuries from another. Nutritional bp screening: No deficits noted. Tuberculosis screening: No symptoms or risk factors identified. Fall Risk None identified. Assessment: 07:45 General: SEE TRIAGE NOTE. bp 09:00 Reassessment: PHLEBOTOMY AT B/S FOR REDRAW. ALL CURRENT ORDERS COMPLETED. bp 10:00 Reassessment: ADMIT MD AT B/S. bp 12:00 Reassessment: SURGERY C/S AT B/, NO OR TODAY 2/2 HYPERGLYCEMIA. bp 13:00 Reassessment: ADMIT IN PROCESS FOR ICU ER-HOLD 9. bp 14:23 Reassessment: REPORT TO TRISTIN LEAHY. PT MOVED TO ICU ER-HOLD 9. iw Vital Signs: 07:44 BP 200 / 100; Pulse 100; Resp 20; Temp 97.8; Pulse Ox 87% on R/A; bp 08:22 BP 206 / 92; Pulse 99; Resp 16; Pulse Ox 94% on 2 lpm NC; mh5 09:00 BP 174 / 73; Pulse 87; Resp 15; Pulse Ox 95% ; bp 10:00 BP 183 / 90; Pulse 95; Resp 13; Pulse Ox 100% ; bp 11:00 BP 177 / 80; Pulse 93; Resp 14; Pulse Ox 95% ; bp 12:00 BP 180 / 78; Pulse 88; Resp 12; Pulse Ox 95% ; bp 13:00 BP 186 / 88; Pulse 91; Resp 12; Pulse Ox 95% ; bp 14:00 BP 169 / 80; Pulse 90; Resp 14; Temp 98; Pulse Ox 95% ; iw ED Course: 07:41 Patient arrived in ED. iw 07:44 Jesus Sanford, ARMOND is Primary Nurse. bp 07:44 Everett Phillips MD is Attending Physician. ma2 07:45 Arm band placed on. bp 07:46 Triage completed. bp 08:00 Inserted saline lock: 22 gauge in right hand, using aseptic technique. Blood collected. bp 08:08 EKG done, by ED staff, reviewed by Everett Phillips MD. 5 08:21 Patient has correct armband on for positive identification. Bed in low position. Call mh5 light in reach. Side rails up X2. Warm blanket given. radiation monitor on. Pulse ox on. NIBP on. 08:30 Foot Right 3 View XRAY Sent. bp 08:30 Basic Metabolic Panel Sent. bp 08:31 Foot Right 3 View XRAY In Process Unspecified. EDMS 09:54 Russ Canales MD is Hospitalizing Provider. ma2 Administered Medications: 08:00 Drug: Dilaudid 1 mg Route: IVP; Site: right hand; bp 08:30 Follow up: Response: No change in condition bp 08:00 Drug: Zofran (Ondansetron) 4 mg Route: IVP; Site: right hand; bp 08:30 Follow up: Response: No adverse reaction bp 08:30 Drug: Clindamycin 600 mg Route: IVPB; Infused Over: 30 mins; Site: right hand; bp 13:22 Follow up: IV Status: Completed infusion; IV Intake: 50ml bp 08:40 Drug: Dilaudid 1 mg Route: IVP; Site: right hand; bp 09:01 Follow up: Response: Pain is decreased bp 08:40 Drug: Ativan 1 mg Route: IVP; Site: right hand; bp 09:01 Follow up: Response: Anxiety decreased bp 09:45 Drug: Insulin Regular Human 10 units {Co-Signature: andi (Burt Oliva RN).} Route: IVP; bp Site: right hand; 13:22 Follow up: Response: No adverse reaction bp 09:45 Drug: NS 0.9% 500 ml Route: IV; Rate: 125 ml/hr; Site: right hand; bp 13:21 Follow up: IV Status: Completed infusion; IV Intake: 500ml bp Intake: 13:21 IV: 500ml; Total: 500ml. bp 13:22 IV: 50ml; Total: 550ml. bp Outcome: 09:54 Decision to Hospitalize by Provider. ma2 14:24 Admitted to ICU accompanied by nurse, accompanied by tech, via stretcher, room 9, with iw chart, Report called to TRISTIN LEAHY 14:24 Condition: stable 14:24 Instructed on the need for admit. 14:25 Patient left the ED. eb Signatures: Dispatcher [employer] Margarita Lorenz, RN Ann Montes [facility] Jesus Sanford RN RN Everett Ruvalcaba MD MD ma2 Michelle Seay RN ja1
[2020-04-23] MEDS ORDERED: INSULIN -REGULAR HUMAN 50 UNIT/0.5 ML ML ONE ×3 (09:57→16:31)
[2020-04-23] MEDS ORDERED: NA CHLORIDE 0.9% 500 ML ONE (09:57)
[2020-04-23] MEDS ORDERED: EPOETIN 4,000 UNIT/ML VIAL IV SCH (11:00)
--- NOTE | 2020-04-23 11:47 | P.HP ---
Certification for Inpatient Patient admitted to: Inpatient With expected LOS: >2 Midnights Practitioner: I am a practitioner with admitting privileges, knowledge of patient current condition, hospital course, and medical plan of care. Services: Services provided to patient in accordance with Admission requirements found in Title 42 Section 412.3 of the Code of Federal Regulations Patient History Date of Service: 04/23/20 Reason for admission: Osteomyelitis, Cellulitis of R great toe History of Present Illness: PMH: ESRD on hemodialysis, history of CVA (residual left-sided weakness), DM2, HTN, diabetic gastroparesis/retinopathy/neuropathy, blindness, h/o thyroid cancer. HPI limited due to patient being very sleepy after receiving pain medication. HPI obtained from ED, EMR, and sister. Her sister reports patient has been dealing with the R great toe wound for a few weeks now. She is unsure what happened the past 2 days because the patient stays with her daughter on weekends and with her (the sister) on weekdays. Per ED and chart review, patient is a poorly controlled diabetic who is very noncompliant. She was reported a lot of pain in her toe and redness when she first arrived to the ED. Labwork notable for leukocytosis (11.7), anemia (9.0), hyponatremia (126), creatinine of 9.19, hyperglycemia (723), CRP: 23. Foot x-ray: Subtle lucent changes in the base of the 1st distal phalanx and head of the 1st proximal phalanx concerning for early osteomyelitis She was given 10 units of IV insulin and IV fluid. She is due for dialysis today and ED spoke with Nephrology to arrange for dialysis. Allergies No Known Allergies Allergy (Verified 04/11/19 22:08) Home Medications: Aspirin 81 mg PO DAILY 12/23/19 Gabapentin 100 mg PO BID 12/23/19 Insulin Lispro [Humalog] 15 unit SQ TIDWM 12/23/19 Metoclopramide HCl [Reglan] 10 mg PO DAILY 12/23/19 Sertraline [Zoloft*] 100 mg PO DAILY 12/23/19 Sevelamer Carbonate [Renvela*] 2,400 mg PO TIDWM #90 tablet 12/24/19 Clopidogrel Bisulfate [Plavix*] 75 mg PO DAILY #30 tablet 12/26/19 Docusate [Colace Cap*] 100 mg PO DAILY PRN #30 cap 12/26/19 Folic Acid 1 mg PO DAILY #30 tablet 12/26/19 Atorvastatin Calcium [Lipitor] 20 mg PO BEDTIME 02/09/20 Furosemide [Lasix] 80 mg PO BID 02/09/20 Insulin Glargine,Hum.rec.anlog [Yanick Wilcoxostar] 25 unit SQ DAILY 02/09/20 carvediloL [Coreg*] 6.25 mg PO BID 02/09/20 Nepro Shake [Nepro*] 250 ml PO BID #60 can 02/13/20 - Past Medical/Surgical History Diabetic: Yes -: Legally blind, diabetic retinopathy -: Hypertension -: Depression with anxiety -: History of thyroid cancer -: Hyperlipidemia -: Tobacco abuse -: GERD -: Diabetic retinopathy and nephropathy -: ESRD -: hyperlipidemia -: CVA x3 -: Cholecystectomy -: Thyroidectomy -: Multiple eye surgeries -: -: HD graph left arm Psychosocial/ Personal History: The patient is . She has 1 child. She is disabled. - Family History Father -: Heart disease, Hypertension, Other (see notes) Notes: thyroid problems Mother -: Diabetes, Kidney disease - Social History Alcohol use: No CD- Drugs: No Caffeine use: No Review of Systems is unable to be obtained Physical Examination - Physical Exam General: Unresponsive (Grunts, opens eyes temporarily, mumbling to verbal stimuli) HEENT: Other (Dry mucous membranes) Neck: Supple Respiratory: Clear to auscultation bilaterally, Normal air movement, Diminished Cardiovascular: Other (Sinus tachycardia 90s-100s), Systolic murmur Gastrointestinal: Soft and benign, Non-distended, No tenderness Integumentary: Diabetic ulcer (Left great toe on dorsal aspect, with surrounding erythema and warmth) Neurological: Other (Very sleepy/minimally responsive after pain medication) - Studies Laboratory Data (last 24 hrs) 04/23/20 08:57: Glucose 723 H* 04/23/20 08:57: Sodium 126 L, Potassium 5.2 H, BUN 91 H, Creatinine 9.19 H*, Glucose 711 H*, Total Bilirubin 0.4, AST 20, ALT 18, Alkaline Phosphatase 232 H, Amylase 49, Lipase 272 04/23/20 08:15: PT 10.8, INR 0.91, APTT 32.6 04/23/20 08:15: WBC 11.7 H, Hgb 9.0 L, Hct 29.0 L, Plt Count 260 Assessment and Plan - Advance Directives Does patient have a Living Will: No Does patient have a Durable POA for Healthcare: Yes - Code Status/Comfort Care Code Status Assessed: Yes (from Sister who is POA) Code Status: Full Code Physician Review Additional Text: Hyperglycemia R 1st toe cellulitis and osteomyelitis Hyponatremia DM2 with retinopathy HTN ESRD on hemodialysis History of CVA (residual left-sided weakness) Hyperglycemia DM2 with retinopathy -normal anion gap, normal bicarb, concern for HHS -unclear etiology - if missed insulin doses or secondary to infection/sepsis -ED stated patient was awake and crying / in pain on presentation, unclear if current status due to dilaudid & ativan given or worsening neuro state due to HHS -received 10units IV insulin and IVF in ED -admit to ICU, q1hr glc checks -if minimal improvement, will likely need to start insulin drip. Potassium: 5.2, will monitor closely as patient has ESRD and due for dialysis today -home meds: Tujeo 25units at night, and 12-15units humalog with meals - per sister R 1st toe cellulitis and osteomyelitis -consulted general surgery - likely will need amputation -NPO overnight. spoke with sister, her and pt's daughter typically sign consent forms, as patient is blind -vanc and cefepime for empiric coverage -ID consulted Hyponatremia -Na: 126, normal after correction for hyperglycemia HTN -IV PRN for now, confirm home meds ESRD on hemodialysis -neprhology consulted in ED, for dialysis today History of CVA (residual left-sided weakness) -confirm home meds and restart when appropriate. Time Spent Managing Pts Care (In Minutes): 55
[2020-04-23] MEDS ORDERED: FOLIC ACID 1 MG TABLET PO ONE (12:00)
[2020-04-23] MEDS ORDERED: CEFEPIME 1 GM/VIAL IV SCH (14:03)
[2020-04-23] MEDS ORDERED: ONDANSETRON 4 MG (ODT) TAB PO PRN (14:03)
[2020-04-23] MEDS: INSULIN -REGULAR HUMAN 50 UNIT/0.5 ML ML SQ SCH ×2 (14:36→16:30)
[2020-04-23] MEDS ORDERED: CEFOXITIN/SWI 1gm 0 GM/0 ML SYR ONE (14:45)
[2020-04-23] MEDS ORDERED: HYDRALAZINE HCL 20 MG/ML VIAL IV PRN (14:57)
[2020-04-23 15:02] VITALS: BMI 24.0
[2020-04-23] MEDS: CEFEPIME/SWI 1gm 10 ML IV SCH (15:07)
[2020-04-23] MEDS ORDERED: INSULIN -REGULAR HUMAN 100 UNIT in NA CHLORIDE 0.9% 100 ML IV SCH (15:45)
[2020-04-23] MEDS ORDERED: VANCOMYCIN 1.5 GM in NA CHLORIDE 0.9% 500 ML IVPB ONE (16:00)
[2020-04-23 16:25] LABS: Potassium 5.2 mmol/L (3.5-5.1)
[2020-04-23] MEDS ORDERED: NA CHLORIDE 0.9% 100 ML IV ONE (16:31)
[2020-04-23] MEDS: HYDROMORPHONE HCL 1 MG/ML INJ IV PRN ×2 (16:53→22:51)
[2020-04-23] MEDS ORDERED: HEPARIN 5000 UNIT/ML 1 ML VIAL SQ SCH (17:00)
[2020-04-23] MEDS: SEVELAMER CARBONATE 800 MG TABLET PO SCH (17:00)
[2020-04-23] MEDS: carvediloL 6.25 MG TAB PO SCH (17:42)
[2020-04-23] MEDS ORDERED: carvediloL 6.25 MG TAB ONE (17:52)
[2020-04-23] MEDS ORDERED: HEPARIN 5000 UNIT/ML 1 ML VIAL ONE (17:53)
[2020-04-23] MEDS: NEPRO SHAKE 237 ML CAN PO SCH (20:06)
[2020-04-23] MEDS: GABAPENTIN 100 MG CAP PO SCH (20:24)
[2020-04-23 20:55] LABS: Potassium 5.3 mmol/L (3.5-5.1)
[2020-04-23] MEDS ORDERED: GLUCAGON 1 MG/VIAL IM PRN (21:52)
[2020-04-23] MEDS ORDERED: D50W 25 GM/50 ML SYRINGE/VIAL IV PRN (21:52)
[2020-04-23] MEDS: HEPARIN 5000 UNIT/ML 1 ML VIAL SQ SCH (22:17)
[2020-04-24 00:51] LABS: Potassium 6.1 mmol/L (3.5-5.1)
[2020-04-24] MEDS: HYDROMORPHONE HCL 1 MG/ML INJ IV PRN ×3 (02:41→20:45)
[2020-04-24] MEDS ORDERED: HYDROCODONE/APAP 5/325 MG TAB PO ONE (05:51)
[2020-04-24] MEDS ORDERED: HYDROCODONE/APAP 5/325 MG TAB ONE (06:06)
[2020-04-24 06:55] LABS: Hematocrit 26.6 % (36.0-45.0); MPV 8.9 fL (7.6-11.3); RBC Red Blood Cell Count 2.85 M/uL (3.86-4.86)
[2020-04-24 07:04] LABS: Protime INR 0.94
[2020-04-24 07:10] LABS: Albumin 2.6 g/dL (3.4-5.0); Bilirubin Total 0.5 mg/dL (0.2-1.0); Magnesium 1.9 mg/dL (1.8-2.4); Potassium 5.8 mmol/L (3.5-5.1); Protein, Total 6.9 g/dL (6.4-8.2)
[2020-04-24] MEDS: INSULIN -REGULAR HUMAN 50 UNIT/0.5 ML ML SQ SCH ×4 (07:30→20:21)
[2020-04-24] MEDS: SEVELAMER CARBONATE 800 MG TABLET PO SCH ×4 (08:00→17:00)
[2020-04-24] MEDS: NEPRO SHAKE 237 ML CAN PO SCH ×2 (09:00→20:03)
--- NOTE | 2020-04-24 09:17 | P.CNS ---
Date of Consult: 04/24/20 Subjective: Patient is a 44-year-old female with history of end-stage renal disease on hemodialysis, CVA with left-sided weakness, diabetes mellitus who presents with right great toe wound. Patient reports wound for about one month. Denies trauma/injury. Patient found to have osteomyelitis which I have been consulted for. - Past Medical/Surgical History Diabetic: Yes -: Legally blind, diabetic retinopathy -: Hypertension -: Depression with anxiety -: History of thyroid cancer -: Hyperlipidemia -: Tobacco abuse -: GERD -: Diabetic retinopathy and nephropathy -: ESRD -: hyperlipidemia -: CVA x3 -: Cholecystectomy -: Thyroidectomy -: Multiple eye surgeries -: -: HD graph left arm Psychosocial/ Personal History: The patient is . She has 1 child. She is disabled. - Family History Father -: Heart disease, Hypertension, Other (see notes) Notes: thyroid problems Mother -: Diabetes, Kidney disease - Social History Alcohol use: No CD- Drugs: No Caffeine use: No Tobacco: Smokes 1 cigarette daily Allergies No Known Allergies Allergy (Verified 04/11/19 22:08) Active Medications Carvedilol (Coreg) 6.25 mg PO BIDWM NATALIE Stop: 05/23/20 18:01 Last Admin: 04/23/20 17:42 Dose: 6.25 mg Documented by: Dextrose (Dextrose 50% Syringe/Vial) 12.5 gm IV PRN PRN PRN Reason: HYPOGLYCEMIA Stop: 05/23/20 21:53 Enteral Nutritional Formula (Nepro Shake) 250 ml PO BID NATALIE Stop: 05/23/20 21:01 Last Admin: 04/23/20 20:06 Dose: Not Given Documented by: Epoetin J Luis (Retacrit) 4,000 unit IV EVERY HD NATALIE Stop: 05/23/20 11:01 Gabapentin (Neurontin) 100 mg PO BID NATALIE Stop: 05/23/20 21:01 Last Admin: 04/23/20 20:24 Dose: 100 mg Documented by: Glucagon (Glucagen) 1 mg IM 1X PRN PRN Reason: HYPOGLYCEMIA Stop: 05/23/20 21:53 Heparin Sodium (Porcine) (Heparin 5,000 Units/Ml) 5,000 unit SQ Q8HR NATALIE Stop: 05/24/20 01:01 Last Admin: 09/07/20 22:17 Dose: Not Given Documented by: Hydralazine HCl (Apresoline) 10 mg IV Q6HP PRN PRN Reason: FOR SBP>160 OR DBP>100 MMHG Stop: 05/23/20 14:58 Last Admin: 04/23/20 15:09 Dose: 10 mg Documented by: Hydromorphone HCl (Dilaudid) 1 mg IV Q6H PRN PRN Reason: Pain scale 5-7 (Moderate) Stop: 05/23/20 14:04 Last Admin: 04/23/20 22:51 Dose: 1 mg Documented by: Hydromorphone HCl (Dilaudid) 1 mg IV Q4H PRN PRN Reason: Pain scale 8-10 (Severe) Stop: 05/24/20 02:34 Last Admin: 04/24/20 02:41 Dose: 1 mg Documented by: Vancomycin HCl 1.25 gm/ Sodium (Chloride) 250 mls @ 150 mls/hr IVPB Q48H [facility] [place]; Protocol Stop: 05/25/20 16:01 Cefepime HCl (Maxipime 1 Gm/10 Ml Ivp) 10 mls @ 200 mls/hr IV DAILY [facility] [place] Stop: 05/23/20 15:01 Last Admin: 04/23/20 15:07 Dose: 10 mls Documented by: Insulin Human Regular (Novolin -R) 0 unit SQ ACHS [facility] [place]; Protocol Stop: 05/24/20 07:31 Ondansetron HCl (Zofran) 4 mg IV Q6H PRN PRN Reason: NAUSEA / VOMITING Stop: 05/23/20 22:12 Sertraline HCl (Zoloft) 100 mg PO DAILY [facility] [place] Stop: 05/24/20 09:01 Sevelamer Carbonate (Renvela) 2,400 mg PO TIDWM [facility] [place] Stop: 05/23/20 17:01 Last Admin: 04/23/20 17:00 Dose: Not Given Documented by: ROS: RESP: Denies shortness of breath : Denies dysuria GI: Reports nausea and diarrhea Extremities: Reports wound to right great toe x1 month Objective: Temp Pulse Resp BP Pulse Ox 98.2 F 72 16 147/64 H 98 04/24/20 04:09 04/24/20 04:09 04/24/20 06:31 04/24/20 04:09 04/24/20 06:31 Labs: Sodium 134, potassium 5.8, BUN 86, creatinine 8.30, albumin 2.6, WBC 9.8, hemoglobin 8.9, hematocrit 26.6 EXAM DESCRIPTION: RAD - Foot Right 3 View - 04/23/2020 8:31 am CLINICAL HISTORY: PAIN COMPARISON: No comparisons FINDINGS: No fracture or dislocation. Underlying joint degenerative changes are mild. Lucency is present in the medial head first proximal phalanx and there are subtle cortical thinning and lucent changes and the base of the first distal phalanx. In the setting of a soft tissue infection, findings are concerning for early osteomyelitis. No other evidence for bone destruction or acute bone process. Arterial tree calcifications are present. No air or foreign body in the soft tissues. IMPRESSION: Subtle lucent changes in the base of the first distal phalanx and head of the first proximal phalanx concerning for early osteomyelitis. ROS: General: Lethargic, facial grimacing CV: S1,S2 RESP: Good breath sounds ABD: Nontender, bowel sounds present Extremities: weak pedal pulses Skin: Right great toe with erythema, swelling and necrotic tissue Assessment and plan: Leukocytosis improved Osteomyelitis right great toe, possible amputation tomorrow, can apply betadine daily Maxipime and Vancomycin day 2, continue, will reevaluate after surgical intervention ESRD on HD Diabetes mellitus, monitor glycemic control, educated the patient on glucose control and wound healing Protein calorie malnourished Will continue to monitor Thank you for consult Patient discussed with Dr. Wilson
[2020-04-24] MEDS: SERTRALINE HCL 100 MG TAB PO SCH (10:25)
[2020-04-24] MEDS: GABAPENTIN 100 MG CAP PO SCH ×2 (10:25→21:10)
[2020-04-24] MEDS: carvediloL 6.25 MG TAB PO SCH ×2 (10:25→17:31)
[2020-04-24] MEDS ORDERED: carvediloL 6.25 MG TAB ONE ×2 (10:25→17:30)
[2020-04-24] MEDS ORDERED: HEPARIN 5000 UNIT/ML 1 ML VIAL ONE ×2 (10:25→17:30)
[2020-04-24] MEDS: CEFEPIME/SWI 1gm 10 ML IV SCH (10:27)
[2020-04-24] MEDS ORDERED: HYDROMORPHONE HCL 2 MG/ML inj ONE (10:28)
--- NOTE | 2020-04-24 10:41 | CON ---
Date of Consultation: 04/23/2020 Chief Complaint: End-stage renal disease on dialysis. History Of Present Illness: The patient has multiple medical problems including diabetic kidney disease, diabetic retinopathy, gastroparesis neuropathy, patient is legally blind. She has history of thyroid cancer. She came to the hospital because of generalized weakness. She was found to have osteomyelitis, cellulitis of the right great toe. She is admitted to the hospital for IV antibiotics. She was found to have uncontrolled diabetes with severe hyperglycemia. She was started on an insulin drip. The patient has chronic pain and difficulty with ambulation due to peripheral neuropathy. She is noncompliant with diabetic regimen as well as she does not follow strict diet restriction. Review of Systems: Constitutional: Denies fever or chills. Eyes: Denies vision changes. Ears, Nose, Mouth and Throat: Denies sore throat or earache. The patient is legally blind. Chest: Denies chest pain or palpitation. GI: Denies nausea or vomiting. : Denies dysuria or hematuria. All other systems reviewed and all are negative. Past Medical History: End-stage renal disease. The patient has severe diabetic retinopathy. She is legally blind, hypertension, depression with anxiety, history of thyroid cancer, hyperlipidemia, tobacco abuse, GERD, diabetic nephropathy, peripheral neuropathy, CVA. Past Surgical History: Cholecystectomy, thyroidectomy, multiple eye surgeries, , dialysis, and dialysis access procedure. Family History: Hypertension and heart disease. Mother; diabetes and kidney disease. Social History: The patient currently is not active smoker. Denies tobacco, alcohol, or illicit drugs. Physical Examination: General: The patient is confused and somewhat agitated. Eyes: The patient is blind. There is no hemorrhagic changes. Ears, Nose, Mouth and Throat: No discharge. Oral mucosa moist. Neck: Supple. No bruits. Lungs: Diminished breath sounds at bases. Heart: S1 and S2. No pericardial friction rub ABDOMEN: Soft. Benign. Extremities: Edema present in both legs. SKIN: no oozing no cyanosis. Laboratory Data: Glucose 723, sodium 126, potassium 5.2, chloride 99, CO2 28, BUN 91, . WBC 11.7, hemoglobin 9.0. Impression And Plan: 1. Uncontrolled diabetes. Continue insulin drip. The patient will have dialysis when blood glucose is below 400. The patient will have dialysis with ultrafiltration. Potassium level is elevated due to potassium shift secondary to uncontrolled diabetes. 2. Hyponatremia due to uncontrolled diabetes, corrected Sodium is in acceptable range. Monitor electrolytes and continue insulin drip. The patient will have dialysis today to obtain metabolic clearance and ultrafiltration. 3. Renal osteodystrophy. Continue renal diet as tolerated. Monitor phosphorus and adjust binders. 4. Hypertension. Blood pressure is in acceptable control. Continue blood pressure medication. 5. Anemia. Continue LINWOOD. Monitor hemoglobin level, adjust LINWOOD dose according to lab results. TAMIKA/KERI Voice ID: [id number] Report ID: [id number] MTDD
[2020-04-24] MEDS: HEPARIN 5000 UNIT/ML 1 ML VIAL SQ SCH ×3 (11:00→22:14)
[2020-04-24 11:26] LABS: Potassium 4.4 mmol/L (3.5-5.1)
[2020-04-24] MEDS ORDERED: GLUCAGON 1 MG/VIAL IM PRN (14:39)
[2020-04-24] MEDS ORDERED: D50W 25 GM/50 ML SYRINGE/VIAL IV PRN (14:39)
--- NOTE | 2020-04-24 15:18 | P.PN ---
Subjective Date of Service: 04/24/20 Chief Complaint: Osteomyelitis, Cellulitis of R great toe Patient moaning and not communicating. She has been afebrile. Physical Examination - Vital Signs Temperature: 98.2 F Blood Pressure: 148/70 Pulse: 92 Respirations: 20 Pulse Ox (%): 97 - Physical Exam General: Confused (Likely secondary to IV opioid.), Other (Mild distress due to pain.) HEENT: Mucous membr. moist/pink Neck: Supple Respiratory: Clear to auscultation bilaterally, Normal air movement Cardiovascular: Regular rate/rhythm, Normal S1 S2, Other (faint dorsalis pedis pulse.) Gastrointestinal: Normal bowel sounds, Soft and benign, Non-distended, No tenderness Musculoskeletal: Other (Gangrenous wound-right big toe.) Neurological: Other (Nonfocal.) - Studies Microbiology Data (last 24 hrs): 04/23/20 10:00 Nasopharnyx Coronavirus COVID-19 PCR - Final Assessment And Plan Physician Review Additional Text: Hyperglycemia R 1st toe cellulitis and osteomyelitis Hyponatremia DM2 with retinopathy HTN ESRD on hemodialysis History of CVA (residual left-sided weakness) R 1st toe Gangrene and Osteomyelitis -General surgery - Dr. Nunes input appreciated. -patient is scheduled for amputation -she will also need vascular evaluation has peripheral vascular disease is suspected. -vanc and cefepime for empiric coverage. Add IV Flagyl -ID consult appreciated. -patient may need prolonged IV antibiotic therapy -consider an LTAC placement if long-term antibiotics required. DM with Hyperglycemia -patient received insulin drip for possible HHS -blood sugar levels have improved and patient transitioned to subcutaneous insulin. -continue insulin sliding scale. -Lantus 5 units at bedtime ordered HTN -IV PRN for now, confirm home meds ESRD on hemodialysis -neprhology input appreciated. Patient having dialysis today to optimize renal function and electrolytes for surgery tomorrow. History of CVA (residual left-sided weakness) -resume home medications
--- NOTE | 2020-04-24 15:32 | PN ---
Date of Progress Note: 04/24/2020 Subjective: The patient was admitted with gangrenous toe, plan for toe amputation. The patient had hyperglycemia, was on insulin drip, treated and recovered of insulin drip. Physical Examination: Vital Signs: Blood pressure 148/70, pulse of 92. Chest: Clear to auscultation. Heart: S1, S2. Systolic murmur. Abdomen: Soft, nontender. Extremities: Ulcer on the left big toe. Neuro: The patient is legally blind. Laboratory Data: WBC 9.8, H and H 8.9/26.6. Sodium 134, potassium 4.4, bicarb 25, BUN 57, creatinine 6.4, calcium 8.7. Current Medications: The patient on its include cefepime, vancomycin, Epogen, carvedilol 6.25, gabapentin, Zoloft, Renvela. Assessment And Plan: 1. End-stage renal disease. We will maintain the patient on dialysis. 2. Secondary hyperparathyroidism. Continue Renvela. 3. Anemia of chronic kidney disease. Resume LINWOOD. 4. Diabetes, uncontrolled. We will start the patient on Lantus. 5. Gangrenous toe, osteomyelitis. Follow up with primary and Surgery. The patient cleared from the renal standpoint to transfer to the floor. time spend to coordinate the care , speaking with other Physician and team staff , face to face with the patient and placing order 35 min CASSIE/KERI Voice ID: [id number] Report ID: [id number] DAYANARA
--- NOTE | 2020-04-24 17:25 | CON ---
Date of Consultation: 04/23/2020 Brief History Of Present Illness: The patient is a 44-year-old female, known to me from previous adm ission where I placed a hemodialysis catheter in her, who now presents with a new issue. She was bro ught into the hospital on 04/23 with osteomyelitis and cellulitis of the right great toe. Her HPI is somewhat limited due to her lethargy after receiving pain medication and sedation, so much of the in formation was obtained from the chart; however, the patient was more awake at the end of my evaluatio n. The patient has been having by report infection of the right great toe, which had been getting pr ogressively worse over the course of time, probably a week or 2, but getting significantly worse over the past 2 days. She noted there was some redness, swelling, drainage from the right great toe. Gonzales carter has diabetes. It has been somewhat poorly controlled by her admission and as such, she was having increased pain as well and arrives to the ED with the above-stated complaint. Past Medical History: 1.Legally blind. 2.Diabetic retinopathy, hypertension, depression, anxiety, thyroid cancer, hyperlipidemia, tobacco a buse, GERD, retinopathy, nephropathy, ESRD on hemodialysis, hyperlipidemia, CVA x3. Past Surgical History: Includes cholecystectomy, thyroidectomy, multiple eye surgeries, . She had hemodialysis graft to the left arm. She has had temporary hemodialysis catheters placed. Social History: She is , has 1 child, disabled. She denies alcohol, smoking, recreational d rug use. Home Medications: Include aspirin, gabapentin, Humalog, Raglan, Zoloft, Renvela, Plavix, Colace, fol ic acid, Lipitor, Lasix, Toujeo, Coreg, Nepro. Family History: Father had heart disease, hypertension, and thyroid problems. Mother had diabetes a nd kidney disease. Review of Systems: Ten-point review of systems other than HPI, denies. Physical Examination: Vital Signs: At the time of my examination, her vital signs were a BMI of 24. Her heart rate was 88 , blood pressure 158/75, respiratory rate 16, SpO2 100% on room air. Her BMI was 24. General: She was sleepy, lethargic, but arousable. Psychiatric: She answered questions appropriately. HEENT: She was otherwise normocephalic. Her sclerae anicteric. Her mucous membranes were moist. H er oropharynx was clear with poor dentition. Neck: Supple without JVD. Chest: Normal expansion and excursion. Cardiovascular: Regular rate and rhythm. Pulmonary: Clear to auscultation bilaterally. Abdomen: Soft. Extremities: Upper extremity, has a fistula in the left upper extremity which has a palpable thrill. Focused examination of right lower extremity shows a cellulitic right great toe with significant in flammatory changes, cellulitis and draining wounds with purulence. Laboratory Data: Revealed a white blood count of 11.7, hemoglobin of 9.0, hematocrit of 29.0, platel et count was 260, neutrophils 81%. Her PT was 10.8, INR 0.91, PTT is 32.6. Sodium 126, potassium 5. 2, chloride 92, carbon dioxide is 22, BUN 91, creatinine 9.1, her glucose is 723. Her lactic acid wa s 0.7. Alkaline phosphatase was 232. C-reactive protein was 23. Her lipase on admission was 272. Procalcitonin was 0.44. She had imaging performed which included a foot x-ray, which was officially read as subtle lucency in the base of the first distal phalanx and head of the first proximal phalanx concerning for early osteomyelitis on x-ray of the right foot three-view. Assessment And Plan: This is a 44-year-old female, who comes in with a significant wound and osteomy elitis of the right great toe. 1.IV fluid hydration. 2.Antibiotic coverage. 3.I have explained operative versus nonoperative management of this toe given its overall appearance and has a very poor appearance to the tissue and as such I think she would fail nonoperative managem ent and therefore, I have recommended amputation of the great toe to the patient. I have explained t he risks, benefits, and alternatives of the above stated plan. The patient agrees to proceed as aura cated. The patient will require dialysis prior to any surgical intervention and should be medically optimized due to her medical comorbidities prior to surgical intervention. Therefore, I will plan fo r surgery on Thursday. Thank you for this interesting consult. MANUELITO/KERI Voice ID: [id number] Report ID: [id number]
[2020-04-24] MEDS: ONDANSETRON 4 MG/2 ML VIAL IV PRN (18:36)
[2020-04-24] MEDS ORDERED: ONDANSETRON 4 MG/2 ML VIAL ONE (18:45)
--- NOTE | 2020-04-24 20:03 | EKG ---
Test Date: 2020-04-23 Test Time: 08:17:34 Lithographic Plate Maker: DALTON MEASUREMENT RESULTS: Intervals: Rate: 98 RI: 148 QRSD: 80 QT: 384 QTc: 490 [place]: P: 77 RI: 148 QRS: 77 T: 81 INTERPRETIVE STATEMENTS: Normal sinus rhythm Possible Left atrial enlargement Prolonged QT Abnormal ECG Compared to ECG 03/12/2020 03:29:42 No significant changes Electronically Signed On 04-24-20 19:59:33 CDT by Elder Tejeda
[2020-04-24] MEDS: INSULIN GLARGINE 100 UNITS/ML SQ SCH (20:20)
[2020-04-24] MEDS ORDERED: HYDROMORPHONE HCL 1 MG/ML INJ ONE (20:41)
[2020-04-24] MEDS ORDERED: ATORVASTATIN 20 MG TAB ONE (20:41)
[2020-04-24] MEDS: ATORVASTATIN 20 MG TAB PO SCH (20:45)
[2020-04-25] MEDS: HYDROMORPHONE HCL 1 MG/ML INJ IV PRN ×3 (01:18→21:21)
[2020-04-25] MEDS: ONDANSETRON 4 MG/2 ML VIAL IV PRN (01:18)
[2020-04-25] MEDS ORDERED: HYDROMORPHONE HCL 1 MG/ML INJ ONE ×2 (01:29→06:33)
[2020-04-25] MEDS ORDERED: ONDANSETRON 4 MG/2 ML VIAL ONE (01:29)
[2020-04-25 04:24] LABS: Hematocrit 27.8 % (36.0-45.0); MPV 9.5 fL (7.6-11.3); Protime INR 0.99; RBC Red Blood Cell Count 2.97 M/uL (3.86-4.86)
[2020-04-25 05:04] LABS: Albumin 2.5 g/dL (3.4-5.0); Phosphorus 7.2 mg/dL (2.5-4.9)
[2020-04-25 05:07] LABS: Potassium 5.6 mmol/L (3.5-5.1)
[2020-04-25] MEDS: INSULIN -REGULAR HUMAN 50 UNIT/0.5 ML ML SQ SCH ×4 (07:30→21:22)
[2020-04-25] MEDS: NEPRO SHAKE 237 ML CAN PO SCH ×2 (09:00→21:00)
[2020-04-25] MEDS: CEFEPIME/SWI 1gm 10 ML IV SCH (09:00)
[2020-04-25] MEDS: SEVELAMER CARBONATE 800 MG TABLET PO SCH ×3 (12:00→17:24)
[2020-04-25] MEDS: EPOETIN ALFA 10,000 UNIT/ML VIAL IV SCH (13:00)
--- NOTE | 2020-04-25 14:32 | P.PN ---
Subjective Date of Service: 04/25/20 Chief Complaint: Osteomyelitis, Cellulitis of R great toe Patient is more awake and communicating meaningfully. She has been afebrile. She was receiving dialysis when I saw her. Physical Examination - Vital Signs Temperature: 98.9 F Blood Pressure: 117/43 Pulse: 74 Respirations: 18 Pulse Ox (%): 99 - Physical Exam General: In no apparent distress, Other (Awake) HEENT: Mucous membr. moist/pink Neck: Supple Respiratory: Clear to auscultation bilaterally, Normal air movement Cardiovascular: No edema, Regular rate/rhythm, Normal S1 S2 Gastrointestinal: Normal bowel sounds, Soft and benign, Non-distended, No tenderness Musculoskeletal: Other (Gangrene on the dorsum and lateral aspect of the right great toe.) - Studies Microbiology Data (last 24 hrs): 04/23/20 10:00 Nasopharnyx Coronavirus COVID-19 PCR - Final Assessment And Plan Physician Review Additional Text: Hyperglycemia R 1st toe cellulitis and osteomyelitis Hyponatremia DM2 with retinopathy HTN ESRD on hemodialysis History of CVA (residual left-sided weakness) R 1st toe Gangrene and Osteomyelitis -General surgery - Dr. Nunes input appreciated. -patient is scheduled for amputation but need to optimize electrolytes first -will order bilateral lower extremity arterial Doppler. -continue vanc and cefepime for empiric coverage. -Flagyl IV added -ID is following -patient may need prolonged IV antibiotic therapy -consider an LTAC placement if long-term antibiotics required. DM with Hyperglycemia -patient received insulin drip for possible HHS -blood sugar levels have improved and patient transitioned to subcutaneous insulin. -continue insulin sliding scale. -Lantus 5 units at bedtime ordered HTN -Coreg resumed. Patient is currently normotensive. -IV hydralazine p.r.n. for BP spikes. ESRD on hemodialysis -neprhology input appreciated. Patient having dialysis again today to optimize renal function and electrolytes for surgery.
--- NOTE | 2020-04-25 14:33 | P.PN ---
Subjective Date of Service: 04/25/20 Chief Complaint: Osteomyelitis, Cellulitis of R great toe Subjective Pt with ESRD , DM, HTN , hx of CVA, admitted for Rt 1st toe gangrane/OM today seen and examined during HD high K will correct with HD scheduled for Dexter amputation hysical exam general: awake and alert, NAD Neck; Supple, No elevated JVD hear: RRR, normal S1,2 no murmur or rub Chest: CTAB, no rlaes or wheezes Abdomen: Soft , Nt Extremities No edema , Rt 1st toe ulcer and gangrener End-stage renal disease on HD MWF HD as per schedule renal dose meds Anemia of chronic disease Cont epogen HTN Controlled DM as per PCP Rt 1st toe gangrene scheduled for amputation Cont Abx hyperkalmeia will correct with HD total time spent 35min Physical Examination - Vital Signs Temperature: 98.9 F Blood Pressure: 117/43 Pulse: 74 Respirations: 18 Pulse Ox (%): 99 - Studies Microbiology Data (last 24 hrs): 04/23/20 10:00 Nasopharnyx Coronavirus COVID-19 PCR - Final
--- NOTE | 2020-04-25 15:25 | P.PN ---
Date of Service: 04/25/20 Subjective: Patient is a 44-year-old female with history of end-stage renal disease on hemodialysis, CVA with left-sided weakness, diabetes mellitus who presents with right great toe wound. Patient reports wound for about one month. Denies trauma/injury. Patient found to have osteomyelitis which I have been consulted for. Patient examined at bedside. Receiving hemodialysis. More awake and alert. Denies fever, diarrhea and nausea. Patient to have right great toe amputated. Objective: Temp Pulse Resp BP Pulse Ox 98.9 F 74 18 117/43 L 99 04/25/20 14:33 04/25/20 14:33 04/25/20 14:33 04/25/20 14:33 04/25/20 14:33 Labs: Sodium 131, potassium 5.6, BUN 65, creatinine 7.47, albumin 2.6, WBC 11.7, hemoglobin 9.1, hematocrit 27.8 EXAM DESCRIPTION: RAD - Foot Right 3 View - 04/23/2020 8:31 am CLINICAL HISTORY: PAIN COMPARISON: No comparisons FINDINGS: No fracture or dislocation. Underlying joint degenerative changes are mild. Lucency is present in the medial head first proximal phalanx and there are subtle cortical thinning and lucent changes and the base of the first distal phalanx. In the setting of a soft tissue infection, findings are concerning for early osteomyelitis. No other evidence for bone destruction or acute bone process. Arterial tree calcifications are present. No air or foreign body in the soft tissues. IMPRESSION: Subtle lucent changes in the base of the first distal phalanx and head of the first proximal phalanx concerning for early osteomyelitis. ROS: General: Awake, alert CV: S1,S2 RESP: Good breath sounds ABD: Nontender, bowel sounds present Extremities: weak pedal pulses Skin: Right great toe with erythema, swelling and necrotic tissue. Kalli area with maceration Assessment and plan: Leukocytosis Osteomyelitis right great toe, possible amputation tomorrow, can apply betadine daily Maxipime and Vancomycin day 3, continue, will reevaluate after surgical intervention Patient will need a minimum of 2 weeks of antibiotics, would benefit from LTAC facility for antibiotics and wound management ESRD on HD Diabetes mellitus, monitor glycemic control, educated the patient on glucose control and wound healing Protein calorie malnourished Will continue to monitor Patient discussed with Dr. Wilson
[2020-04-25] MEDS ORDERED: VANCOMYCIN 1.25 GM in NA CHLORIDE 0.9% 250 ML IVPB SCH (16:00)
[2020-04-25] MEDS: carvediloL 6.25 MG TAB PO SCH ×2 (17:00→17:04)
[2020-04-25] MEDS: HEPARIN 5000 UNIT/ML 1 ML VIAL SQ SCH ×2 (17:00→17:04)
[2020-04-25] MEDS: METRONIDAZOLE 500mg IVPB 500 MG/100 ML BAG IV SCH (17:03)
[2020-04-25] MEDS ORDERED: carvediloL 6.25 MG TAB ONE (17:04)
[2020-04-25] MEDS: FOLIC ACID 1 MG TABLET PO SCH (17:04)
[2020-04-25] MEDS ORDERED: HEPARIN 5000 UNIT/ML 1 ML VIAL ONE (17:05)
[2020-04-25] MEDS ORDERED: FOLIC ACID 1 MG TABLET ONE (17:05)
[2020-04-25] MEDS ORDERED: METRONIDAZOLE 500mg IVPB 500 MG/100 ML BAG IV ONE (17:06)
[2020-04-25] MEDS: GABAPENTIN 100 MG CAP PO SCH ×2 (17:23→21:23)
[2020-04-25] MEDS: SERTRALINE HCL 100 MG TAB PO SCH (17:24)
[2020-04-25] MEDS: VANCOMYCIN 1.5 GM in NA CHLORIDE 0.9% 500 ML IVPB SCH ×2 (17:24→17:48)
[2020-04-25] MEDS ORDERED: INSULIN -REGULAR HUMAN 50 UNIT/0.5 ML ML ONE (17:55)
--- NOTE | 2020-04-25 19:36 | RAD REPORT ---
EXAM DESCRIPTION: US - Lower Extremity Arterial Bilat - 04/25/2020 6:54 pm CLINICAL HISTORY: Gangrene of right great toe. Claudication COMPARISON: No comparisons TECHNIQUE: Bilateral lower extremity arterial Doppler examination was performed with waveform tracin g and ankle brachial pressure measurements. FINDINGS: Only the right arm could be utilized for brachial blood pressure. Right common femoral artery is triphasic. Right superficial femoral artery and distal vessels appear monophasic. Left common femoral artery and superficial femoral artery are triphasic. Left popliteal artery and di stal are monophasic. Right ankle brachial index cannot be accurately obtained due to lack of compressibility of the right posterior tibial artery. Left ankle brachial index measures 1.4, normal. IMPRESSION: Bilateral peripheral vascular disease is present of moderate severity, slightly more sev ere on the right.
[2020-04-25] MEDS: INSULIN GLARGINE 100 UNITS/ML SQ SCH (21:21)
[2020-04-25] MEDS: ATORVASTATIN 20 MG TAB PO SCH (21:23)
[2020-04-26] MEDS: METRONIDAZOLE 500mg IVPB 500 MG/100 ML BAG IV SCH ×3 (00:20→16:36)
[2020-04-26] MEDS: HEPARIN 5000 UNIT/ML 1 ML VIAL SQ SCH ×3 (00:31→16:35)
[2020-04-26] MEDS: ONDANSETRON 4 MG/2 ML VIAL IV PRN ×2 (03:49→16:34)
[2020-04-26 04:16] LABS: Protime INR 0.97
[2020-04-26 04:20] LABS: Hematocrit 24.3 % (36.0-45.0); MPV 9.5 fL (7.6-11.3); RBC Red Blood Cell Count 2.63 M/uL (3.86-4.86)
[2020-04-26 04:52] LABS: Albumin 2.3 g/dL (3.4-5.0); Phosphorus 5.4 mg/dL (2.5-4.9); Potassium 4.5 mmol/L (3.5-5.1)
[2020-04-26] MEDS: SEVELAMER CARBONATE 800 MG TABLET PO SCH ×3 (07:15→16:34)
[2020-04-26] MEDS: NEPRO SHAKE 237 ML CAN PO SCH ×2 (07:16→20:24)
[2020-04-26] MEDS: GABAPENTIN 100 MG CAP PO SCH ×2 (07:16→20:23)
[2020-04-26] MEDS: SERTRALINE HCL 100 MG TAB PO SCH (07:16)
[2020-04-26] MEDS: FOLIC ACID 1 MG TABLET PO SCH (07:16)
[2020-04-26] MEDS: INSULIN -REGULAR HUMAN 50 UNIT/0.5 ML ML SQ SCH ×4 (07:30→20:24)
[2020-04-26] MEDS: carvediloL 6.25 MG TAB PO SCH (07:50)
[2020-04-26] MEDS: HYDROMORPHONE HCL 1 MG/ML INJ IV PRN ×2 (09:04→16:35)
[2020-04-26] MEDS: CEFEPIME/SWI 1gm 10 ML IV SCH (10:00)
[2020-04-26] MEDS ORDERED: NA CHLORIDE 0.9% 500 ML ONE (10:38)
[2020-04-26] MEDS ORDERED: FENTANYL CITR 100 MCG/2 ML ONE (10:45)
[2020-04-26] MEDS ORDERED: propofoL 200 MG/20 ML VIAL IV ONE (10:46)
[2020-04-26] MEDS ORDERED: MIDAZOLAM HCL 2 MG/2 ML INJ ONE (10:46)
[2020-04-26] MEDS ORDERED: LIDOCAINE 1% MPF 5 ML VIAL ONE (10:46)
[2020-04-26] MEDS ORDERED: BUPIVACAINE 0.25% PF 30 ML VIAL ONE (10:52)
--- NOTE | 2020-04-26 11:22 | PN ---
Date of Progress Note: 04/26/2020 Subjective: The patient was admitted with uncontrolled diabetes, gangrenous toe. The patient is arnold eduled for surgery today. Physical Examination: Vital Signs: Blood pressure 159/76, pulse of 78, afebrile. The patient had good urine output. Chest: Clear to auscultation. Heart: S1, S2. Regular. Abdomen: Soft, nontender. Extremities: No edema. Cellulitis on the great toe on the right side with discharge, dressing on. Neurologic: Legally blind. Current Medications: The patient on its include; 1.Cefepime. 2.Metronidazole. 3.Vancomycin. 4.Epogen. 5.Atorvastatin. 6.Carvedilol 6.25 b.i.d. 7.Gabapentin. 8.Zoloft. 9.Folic acid. Assessment And Plan: 1.End-stage renal disease. We will continue the patient on dialysis TTS, schedule for today. We wi ll arrange for Thursday. 2.Hypertension, controlled. I am going to go ahead and increase her carvedilol for better blood pre ssure control. 3.Diabetes, better blood sugar. Follow up with the primary. 4.Infected toe cellulitis. Continue current antibiotic. Follow up with Surgery. DEBBIE Voice ID: [id number] Report ID: [id number]
[2020-04-26] MEDS ORDERED: EPHEDRINE SULF 50 MG/ML VIAL ONE (11:56)
[2020-04-26] MEDS ORDERED: NS 0.9% VIAL 10 ML ONE (11:56)
[2020-04-26] MEDS ORDERED: dexAMETHasone 10 MG/ML VIAL ONE (12:02)
--- NOTE | 2020-04-26 12:07 | P.OP ---
Preoperative diagnosis: RIGHT Great Toe Osteomyelitis w/ soft tissue infection Postoperative diagnosis: RIGHT Great Toe Osteomyelitis w/ soft tissue infection Primary procedure: Amputation of RIGHT Great toe Anesthesia: GETA + Local Estimated blood loss: <10cc Specimen: RIGHT Great Toe Findings: infection extended to Metatarsophalangeal joint Complications: None Transferred to: Recovery Room Condition: Good
[2020-04-26] MEDS ORDERED: ONDANSETRON 4 MG/2 ML VIAL ONE (12:16)
--- NOTE | 2020-04-26 12:31 | OP ---
Date of Procedure: 04/26/2020 Surgeon: Tristan Nunes MD, Preoperative Diagnosis: Right great toe osteomyelitis with soft tissue infection. Postoperative Diagnosis: Right great toe osteomyelitis with soft tissue infection. Procedure Performed: Amputation of right great toe. Anesthesia: General endotracheal plus local with 0.25% Marcaine with epinephrine. Estimated Blood Loss: Less than 10 mL. Specimens: Right great toe. Findings: Infection extending to the metatarsophalangeal joint with osteomyelitic changes and obviou s necrosis to the right great toe. Complications: None. Transferred to recovery room in good condition. Procedure In Detail: After informed was obtained, the patient was brought to the operating room, pre pped and draped in the usual sterile fashion. After adequate anesthesia was achieved, the area of th e right great toe was anesthetized with 0.25% Marcaine. I marked the area based on a plantar flap, a lthough this was difficult and small as the patient had significant cellulitic changes and infection to this area. As such, I marked this with a marking pen, incised down in a T-type incision extending up to the metatarsophalangeal joint down through subcutaneous tissues using a 15 blade. I used elec trocautery to dissect circumferentially down to the deep tissues. I then inspected the infected plan e and found to be extending all the way to the metatarsophalangeal joint, but not involving the head of the metatarsal joint at this point. I then circumferentially dissected out all ligaments and tend inous connections between the metatarsophalangeal joint and also soft tissue which was infected was d ebrided sharply using a combination of sharp, blunt and electrocautery dissection. The toe was amput ated without evidence of complication, sent off for pathologic examination. At this point, the area was copiously irrigated multiple times until completely clear. Hemostasis was achieved with electroc autery and all necrotic tissue was debrided at the end of the procedure. The area was copiously irri gated once again and then closed using interrupted double layer closure using a combination of deep l tyler complex closure with 3-0 Vicryl suture followed by skin closure with 2-0 nylon sutures. A steri le dressing was placed over top. The patient tolerated the procedure well without evidence of compli cations and transferred to PACU in good condition. All counts were correct at the end of the case. TK/MODL Voice ID: [id number] Report ID: [id number]
[2020-04-26] MEDS: HYDROMORPHONE HCL 1 MG/ML INJ ONE ×2 (12:50→12:56)
--- NOTE | 2020-04-26 13:00 | P.PN ---
Subjective Date of Service: 04/26/20 Chief Complaint: Osteomyelitis, Cellulitis of R great toe No new complaint. Right great toe amputation done today. She has been afebrile. Arterial Doppler of bilateral lower extremity result reviewed: Patient has PVD of moderate severity. Physical Examination - Vital Signs Temperature: 97.3 F Blood Pressure: 169/70 Pulse: 79 Respirations: 19 Pulse Ox (%): 98 - Physical Exam General: Alert, In no apparent distress HEENT: Mucous membr. moist/pink Respiratory: Clear to auscultation bilaterally, Normal air movement Cardiovascular: Normal pulses, Regular rate/rhythm, Normal S1 S2 Gastrointestinal: Normal bowel sounds, Soft and benign, No tenderness Assessment And Plan Physician Review Additional Text: Hyperglycemia R 1st toe cellulitis and osteomyelitis Hyponatremia DM2 with retinopathy HTN ESRD on hemodialysis History of CVA (residual left-sided weakness) R 1st toe Gangrene and Osteomyelitis -General surgery - Dr. Nunes input appreciated. -status post right great toe amputation -continue vanc and cefepime for empiric coverage. -ID is following for antibiotic treatment -patient may need prolonged IV antibiotic therapy -considering LTAC placement if long-term antibiotics required. DM with Hyperglycemia -patient received insulin drip for possible HHS -blood sugar levels have improved and patient transitioned to subcutaneous insulin. -continue insulin sliding scale. -Lantus 5 units at bedtime ordered HTN -Coreg resumed. Patient is currently normotensive. -IV hydralazine p.r.n. for BP spikes. ESRD on hemodialysis -neprhology input appreciated. -further hemodialysis per nephrology.
--- NOTE | 2020-04-26 14:36 | P.PN ---
Date of Service: 04/26/20 Subjective: Patient is a 44-year-old female with history of end-stage renal disease on hemodialysis, CVA with left-sided weakness, diabetes mellitus who presents with right great toe wound. Patient reports wound for about one month. Denies trauma/injury. Patient found to have osteomyelitis which I have been consulted for. Patient examined at bedside. S/P right great toe amputation today 04/26. Objective: Temp Pulse Resp BP Pulse Ox 97.3 F 78 17 169/71 H 98 04/26/20 13:03 04/26/20 13:03 04/26/20 13:03 04/26/20 13:03 04/26/20 12:59 Labs: Sodium 138, potassium 4.5, BUN 34, creatinine 4.98, albumin 2.6, WBC 11.0, hemoglobin 8.3, hematocrit 24.3 EXAM DESCRIPTION: RAD - Foot Right 3 View - 04/23/2020 8:31 am CLINICAL HISTORY: PAIN COMPARISON: No comparisons FINDINGS: No fracture or dislocation. Underlying joint degenerative changes are mild. Lucency is present in the medial head first proximal phalanx and there are subtle cortical thinning and lucent changes and the base of the first distal phalanx. In the setting of a soft tissue infection, findings are concerning for early osteomyelitis. No other evidence for bone destruction or acute bone process. Arterial tree calcifications are present. No air or foreign body in the soft tissues. IMPRESSION: Subtle lucent changes in the base of the first distal phalanx and head of the first proximal phalanx concerning for early osteomyelitis. ROS: General: Awake, alert CV: S1,S2 RESP: Good breath sounds ABD: Nontender, bowel sounds present Extremities: weak pedal pulses Skin: Right great toe dressing CDI Assessment and plan: Leukocytosis Osteomyelitis right great toe, S/P amputation 04/26 Maxipime and Vancomycin day 4, continue Patient will need a minimum of 2 weeks of antibiotics ESRD on HD Diabetes mellitus, monitor glycemic control, educated the patient on glucose control and wound healing Protein calorie malnourished Will continue to monitor Patient discussed with Dr. Wilson
[2020-04-26] MEDS: carvediloL 12.5 MG TAB PO SCH (16:34)
[2020-04-26] MEDS: INSULIN GLARGINE 100 UNITS/ML SQ SCH (20:23)
[2020-04-26] MEDS: ATORVASTATIN 20 MG TAB PO SCH (20:23)
[2020-04-27] MEDS: HEPARIN 5000 UNIT/ML 1 ML VIAL SQ SCH ×3 (01:17→16:19)
[2020-04-27] MEDS: HYDROMORPHONE HCL 1 MG/ML INJ IV PRN ×3 (01:17→11:30)
[2020-04-27] MEDS: METRONIDAZOLE 500mg IVPB 500 MG/100 ML BAG IV SCH ×2 (01:18→09:44)
[2020-04-27 04:03] LABS: Absolute Lymphocytes (CBC) 0.5 K/uL (0.7-4.9); Basophils % 0.3 % (0-1.3); Hematocrit 26.6 % (36.0-45.0); Lymphocytes % 3.6 % (15.3-44.8); MPV 9.8 fL (7.6-11.3); RBC Red Blood Cell Count 2.83 M/uL (3.86-4.86)
[2020-04-27 04:15] LABS: Albumin 2.4 g/dL (3.4-5.0); Phosphorus 7.4 mg/dL (2.5-4.9)
[2020-04-27 04:34] LABS: HBsAG Nonreactive (Nonreactive)
[2020-04-27 05:22] LABS: Platelet Estimate ADEQ
[2020-04-27 05:23] LABS: Blood Morphology Comment NOT SEEN (NOT SEEN)
[2020-04-27] MEDS: SEVELAMER CARBONATE 800 MG TABLET PO SCH ×3 (08:00→16:20)
[2020-04-27] MEDS ORDERED: DOCUSATE NA 100 MG CAP PO PRN (08:17)
[2020-04-27] MEDS: CEFEPIME/SWI 1gm 10 ML IV SCH (08:50)
[2020-04-27] MEDS: SERTRALINE HCL 100 MG TAB PO SCH (08:52)
[2020-04-27] MEDS: GABAPENTIN 100 MG CAP PO SCH ×2 (08:52→22:45)
[2020-04-27] MEDS: carvediloL 12.5 MG TAB PO SCH ×2 (08:52→16:19)
[2020-04-27] MEDS: FOLIC ACID 1 MG TABLET PO SCH (08:52)
[2020-04-27] MEDS: NEPRO SHAKE 237 ML CAN PO SCH ×2 (08:53→21:00)
[2020-04-27] MEDS: INSULIN -REGULAR HUMAN 50 UNIT/0.5 ML ML SQ SCH ×4 (08:53→21:00)
[2020-04-27] MEDS: CLOPIDOGREL 75 MG TABLET PO SCH (09:01)
[2020-04-27] MEDS: ASPIRIN 81 MG CHEWABLE TABLET PO SCH (09:01)
[2020-04-27] MEDS: INSULIN GLARGINE 100 UNITS/ML SQ SCH ×2 (09:02→21:00)
[2020-04-27] MEDS: INSULIN LISPRO 100 UNIT/1 ML SQ SCH ×2 (12:46→16:19)
--- NOTE | 2020-04-27 13:16 | P.PN ---
Subjective Date of Service: 04/27/20 Chief Complaint: Osteomyelitis, Cellulitis of R great toe Subjective Pt with ESRD , DM, HTN , hx of CVA, admitted for Rt 1st toe gangrene/OM Today No new complaints high K will correct with HD S/P 1st amputation BP controlled now physical exam general: awake and alert, NAD Neck; Supple, No elevated JVD hear: RRR, normal S1,2 no murmur or rub Chest: CTAB, no rlaes or wheezes Abdomen: Soft , Nt Extremities No edema , Rt 1st toe ulcer and gangrener End-stage renal disease on HD MWF HD as per schedule renal dose meds Anemia of chronic disease Cont epogen HTN Controlled DM as per PCP Rt 1st toe gangrene S/P amputation Cont Abx total time spent 35min Physical Examination - Vital Signs Temperature: 98.3 F Blood Pressure: 105/56 Pulse: 69 Respirations: 16 Pulse Ox (%): 94
--- NOTE | 2020-04-27 13:58 | P.PN ---
Date of Service: 04/27/20 Subjective: Patient is a 44-year-old female with history of end-stage renal disease on hemodialysis, CVA with left-sided weakness, diabetes mellitus who presents with right great toe wound. Patient reports wound for about one month. Denies trauma/injury. Patient found to have osteomyelitis which I have been consulted for. Patient examined at bedside. S/P right great toe amputation 04/26. Objective: Temp Pulse Resp BP Pulse Ox 98.3 F 69 16 105/56 L 94 04/27/20 13:16 04/27/20 13:16 04/27/20 13:16 04/27/20 13:16 04/27/20 13:16 Labs: Sodium 132, potassium 5.0, BUN 45, creatinine 6.26, albumin 2.6, WBC 14.4, hemoglobin 8.7, hematocrit 26.6 EXAM DESCRIPTION: RAD - Foot Right 3 View - 04/23/2020 8:31 am CLINICAL HISTORY: PAIN COMPARISON: No comparisons FINDINGS: No fracture or dislocation. Underlying joint degenerative changes are mild. Lucency is present in the medial head first proximal phalanx and there are subtle cortical thinning and lucent changes and the base of the first distal phalanx. In the setting of a soft tissue infection, findings are concerning for early osteomyelitis. No other evidence for bone destruction or acute bone process. Arterial tree calcifications are present. No air or foreign body in the soft tissues. IMPRESSION: Subtle lucent changes in the base of the first distal phalanx and head of the first proximal phalanx concerning for early osteomyelitis. ROS: General: Awake, alert CV: S1,S2 RESP: Good breath sounds ABD: Nontender, bowel sounds present Extremities: weak pedal pulses Skin: Right great toe dressing CDI Assessment and plan: Leukocytosis Osteomyelitis right great toe, S/P amputation 04/26 Maxipime and Vancomycin day 5, continue Upon discharge can switch to Clindamycin 300mg PO TID Patient will need a minimum of 2 weeks of antibiotics and will need to follow up with Dr. Nunes outpatient ESRD on HD Diabetes mellitus, monitor glycemic control, educated the patient on glucose control and wound healing Protein calorie malnourished Will continue to monitor Patient discussed with Dr. Wilson
[2020-04-27] MEDS ORDERED: ALBUMIN IV ONE ×2 (14:00→18:00)
[2020-04-27] MEDS ORDERED: BOT IV ONE ×2 (14:00→18:00)
[2020-04-27] MEDS ORDERED: ALBUMIN HUMAN 25% 50 ML IV ONE (16:00)
[2020-04-27] MEDS: EPOETIN ALFA 10,000 UNIT/ML VIAL IV SCH (17:01)
--- NOTE | 2020-04-27 18:10 | P.PN ---
Subjective Date of Service: 04/27/20 Chief Complaint: Osteomyelitis, Cellulitis of R great toe Patient is groggy from IV opioids Status post toe amputation day 2. Physical Examination - Vital Signs Temperature: 98.3 F Blood Pressure: 105/56 Pulse: 69 Respirations: 16 Pulse Ox (%): 94 - Physical Exam General: Other (Somnolent) Respiratory: Clear to auscultation bilaterally, Normal air movement Cardiovascular: Regular rate/rhythm, Normal S1 S2 Gastrointestinal: Normal bowel sounds, Soft and benign, No tenderness Musculoskeletal: Other (Right great toe amputation) Neurological: Other (Somnolent) Assessment And Plan Physician Review Additional Text: Hyperglycemia R 1st toe cellulitis and osteomyelitis Hyponatremia DM2 with retinopathy HTN ESRD on hemodialysis History of CVA (residual left-sided weakness) R 1st toe Gangrene and Osteomyelitis -status post right great toe amputation -continue vanc and cefepime for empiric coverage. -ID recommendation noted. Switch to oral clindamycin on discharge. DM with Hyperglycemia -patient received insulin drip for possible HHS -blood sugar levels have improved and patient transitioned to subcutaneous insulin. -continue insulin sliding scale. -Lantus 5 units at bedtime ordered HTN -Coreg resumed. Patient is currently normotensive. -IV hydralazine p.r.n. for BP spikes. ESRD on hemodialysis -nephrology input appreciated. -further hemodialysis per nephrology.
[2020-04-27] MEDS ORDERED: VANCOMYCIN 500 MG in NA CHLORIDE 0.9% 100 ML IVPB SCH (18:45)
[2020-04-27] MEDS: ATORVASTATIN 20 MG TAB PO SCH (21:40)
[2020-04-27] MEDS ORDERED: HYDROCODONE/APAP 5/325 MG TAB PO PRN (22:14)
[2020-04-28] MEDS: HEPARIN 5000 UNIT/ML 1 ML VIAL SQ SCH ×2 (01:00→09:03)
[2020-04-28 04:41] LABS: Absolute Lymphocytes (CBC) 1.4 K/uL (0.7-4.9); Basophils % 0.5 % (0-1.3); Hematocrit 26.5 % (36.0-45.0); Lymphocytes % 12.1 % (15.3-44.8); MPV 9.4 fL (7.6-11.3); RBC Red Blood Cell Count 2.84 M/uL (3.86-4.86)
[2020-04-28 05:00] LABS: Albumin 2.6 g/dL (3.4-5.0); Phosphorus 4.4 mg/dL (2.5-4.9)
[2020-04-28] MEDS: INSULIN -REGULAR HUMAN 50 UNIT/0.5 ML ML SQ SCH ×2 (07:30→11:30)
[2020-04-28] MEDS: SEVELAMER CARBONATE 800 MG TABLET PO SCH ×2 (08:00→12:00)
[2020-04-28] MEDS: INSULIN LISPRO 100 UNIT/1 ML SQ SCH ×2 (08:00→12:00)
[2020-04-28] MEDS: SERTRALINE HCL 100 MG TAB PO SCH (08:57)
[2020-04-28] MEDS: ASPIRIN 81 MG CHEWABLE TABLET PO SCH (08:58)
[2020-04-28] MEDS: FOLIC ACID 1 MG TABLET PO SCH (08:58)
[2020-04-28] MEDS: GABAPENTIN 100 MG CAP PO SCH (08:58)
[2020-04-28] MEDS: CLOPIDOGREL 75 MG TABLET PO SCH (08:58)
[2020-04-28] MEDS: carvediloL 12.5 MG TAB PO SCH (08:58)
[2020-04-28] MEDS: INSULIN GLARGINE 100 UNITS/ML SQ SCH (09:00)
[2020-04-28] MEDS: NEPRO SHAKE 237 ML CAN PO SCH (09:00)
[2020-04-28] MEDS: CEFEPIME/SWI 1gm 10 ML IV SCH (09:01)
[2020-04-28 11:01] VITALS: O2SAT 97
--- NOTE | 2020-04-28 11:52 | P.DS ---
Admission Date: 04/23/20 Discharge Date: 04/28/20 Disposition: DC HOME/HOME HEALTH CARE Discharge Condition: GOOD Reason for Admission: Osteomyelitis, Cellulitis of R great toe - Problems (1) End-stage renal disease on hemodialysis Current Visit: Yes Status: Acute (2) History of CVA (cerebrovascular accident) Current Visit: Yes Status: Acute (3) Osteomyelitis of toe of right foot Current Visit: Yes Status: Acute (4) Status post amputation of toe of right foot Current Visit: Yes Status: Acute (5) End-stage renal disease on hemodialysis Current Visit: No Status: Acute (6) Diabetes mellitus Onset Date: 03/03/17 Current Visit: No Status: Chronic (7) Diabetes mellitus type II, uncontrolled Onset Date: 10/08/15 Current Visit: No Status: Chronic Qualifiers: Glycemic state: with hyperglycemia Qualified Code(s): E11.65 - Type 2 diabetes mellitus with hyperglycemia (8) Diabetic gastroparesis Onset Date: 09/02/17 Current Visit: No Status: Chronic (9) Hypertension Onset Date: 03/03/17 Current Visit: No Status: Chronic Qualifiers: Hypertension type: essential hypertension Qualified Code(s): I10 - Essential (primary) hypertension Brief History of Present Illness: 44-year-old woman with a history of end-stage renal disease on hemodialysis, prior history of CVA, blindness, poorly-controlled diabetes was brought to the emergency department for evaluation of right big toe wound that had gotten progressively worse. Her blood sugar in the ED was severely elevated to the 700s for which she was given IV insulin. CT scan of the foot reported somnolence see in the right 1st phalanx. Her foot looked gangrenous. She was admitted further management. Hospital Course: Patient initially admitted to the ICU and treated with insulin drip briefly. She was then transition to subcutaneous insulin. She was seen and evaluated by general surgery-Dr. Nunes who recommended amputation of the right great toe for gangrene and osteomyelitis. She had hyperkalemia and she was dialyzed multiple times in order to optimize her electrolyte before surgery. She was also treated with aggressive antibiotic therapy including IV cefepime and vancomycin. Right great toe amputation was done. Her postop period was unremarkable. She was seen and evaluated by the infectious disease team who recommends 2 weeks of clindamycin. Her home insulin regimen was resumed during the hospital stay, patient developed an episode of for glycemia which can be attributed to her pre meal insulin. Her premeal insulin dose has been reduced form 15 units to 5 units to avoid hypoglycemia. Her longer-acting insulin dose was not changed. Nonweightbearing of the right foot is recommended. The patient is discharged to resume home health for wound care and nursing. Vital Signs/Physical Exam: Temp Pulse Resp BP Pulse Ox 98.7 F 73 18 131/60 97 04/28/20 08:00 04/28/20 08:58 04/28/20 08:00 04/28/20 08:58 04/28/20 08:00 General: Alert, In no apparent distress HEENT: Mucous membr. moist/pink Neck: Supple Respiratory: Clear to auscultation bilaterally, Normal air movement Cardiovascular: No edema, Regular rate/rhythm, Normal S1 S2 Gastrointestinal: Normal bowel sounds, Soft and benign, No tenderness Musculoskeletal: Other (Right great toe amputation-dressed.) Neurological: Normal speech Laboratory Data at Discharge: WBC 11.9 K/uL (4.3-10.9) H D 04/28/20 04:18 Hgb 8.8 g/dL (12.0-15.0) L 04/28/20 04:18 Hct 26.5 % (36.0-45.0) L 04/28/20 04:18 Plt Count 257 K/uL (152-406) 04/28/20 04:18 PT 11.4 SECONDS (9.5-12.5) 04/26/20 03:30 INR 0.97 04/26/20 03:30 APTT 32.6 SECONDS (24.3-36.9) 04/23/20 08:15 Sodium 133 mmol/L (136-145) L 04/28/20 04:18 Potassium 4.0 mmol/L (3.5-5.1) 04/28/20 04:18 BUN 24 mg/dL (7-18) H D 04/28/20 04:18 Creatinine 4.06 mg/dL (0.55-1.3) H D 04/28/20 04:18 Glucose 148 mg/dL (74-106) H 04/28/20 04:18 Phosphorus 4.4 mg/dL (2.5-4.9) 04/28/20 04:18 Magnesium 1.9 mg/dL (1.8-2.4) D 04/24/20 06:35 Total Bilirubin 0.5 mg/dL (0.2-1.0) 04/24/20 06:35 AST 15 U/L (15-37) 04/24/20 06:35 ALT 21 U/L (12-78) 04/24/20 06:35 Alkaline Phosphatase 106 U/L (45-117) D 04/24/20 06:35 Amylase 49 U/L (25-115) 04/23/20 08:57 Lipase 272 U/L (73-393) 04/23/20 08:57 Home Medications: Aspirin 81 mg PO DAILY 12/23/19 Gabapentin 100 mg PO BID 12/23/19 Metoclopramide HCl [Reglan] 10 mg PO DAILY 12/23/19 Sertraline [Zoloft*] 100 mg PO DAILY 12/23/19 Sevelamer Carbonate [Renvela*] 2,400 mg PO TIDWM #90 tablet 12/24/19 Clopidogrel Bisulfate [Plavix*] 75 mg PO DAILY #30 tablet 12/26/19 Docusate [Colace Cap*] 100 mg PO DAILY PRN #30 cap 12/26/19 Folic Acid 1 mg PO DAILY #30 tablet 12/26/19 Atorvastatin Calcium [Lipitor] 20 mg PO BEDTIME 02/09/20 Insulin Glargine,Hum.rec.anlog [Toujeo Max Solostar] 25 unit SQ DAILY 02/09/20 carvediloL [Coreg*] 6.25 mg PO BID 02/09/20 Nepro Shake [Nepro*] 250 ml PO BID #60 can 02/13/20 Epoetin [Retacrit] 10,000 unit IV EVERY HD vial 04/28/20 Insulin Lispro [Humalog] 5 unit SQ TIDWM #10 ml 04/28/20 L. Acidophilus/L.bulgaricus [Lactobacillus Tablet] 1 each PO TID #90 tablet 04/28/20 Tramadol HCl [Ultram] 50 mg PO Q6H PRN #30 tablet 04/28/20 clindamycin HCL [Clindamycin HCl] 300 mg PO TID #42 capsule 04/28/20 New Medications: clindamycin HCL [Clindamycin HCl] 300 mg PO TID #42 capsule Insulin Lispro [Humalog] 5 unit SQ TIDWM #10 ml L. Acidophilus/L.bulgaricus [Lactobacillus Tablet] 1 each PO TID #90 tablet Tramadol HCl [Ultram] 50 mg PO Q6H PRN #30 tablet PRN Reason: PAIN Diet: ADA Activity: Non-weight bearing Followup: Tristan Nunes MD [ACTIVE - CAN ADMIT] - Time spent managing pt's care (in minutes): 54
[2020-04-28 12:07] VITALS: BP 94/51; TEMP 100.1
--- NOTE | 2020-04-29 00:15 | PN ---
Date of Progress Note: 04/28/2020 Chief Complaint: End-stage renal disease. Subjective: The patient is on dialysis, has been dialyzed 3 times per week on Thursday, Thursday, Thu. She came to the hospital because of generalized weakness. She was found to have gangrene of th e first toe, osteomyelitis. She is on antibiotics. Review of Systems: Denies PND or orthopnea. Physical Examination: Lungs: Diminished breath sounds at bases. Heart: S1, S2. Abdomen: Soft, benign. Extremities: Edema controlled. Assessment And Plan: 1.End-stage renal disease. Next dialysis on Thursday. 2.Anemia of chronic kidney disease. Continue [place]. 3.Osteomyelitis. Continue antibiotics. 4.Renal osteodystrophy. Continue renal diet and binders. EB/MODL Voice ID: [id number] Report ID: [id number]
== END 2020-04-28 14:19 | disposition home health service (06) | DRG 255 ==
LOC: ER 07:38 → ERHOLD 11:05 → 4TH 04-25 19:39
PROVIDERS: ADMIT Hospitalist; ATTEND Internal Medicine
PROC: 5A1D70Z Performance of Urinary Filtration, Intermittent, Less than 6 Hours Per Day (ICD-10-PCS; 2020-04-23)
PROC: 0Y6P0Z0 Detachment at Right 1st Toe, Complete, Open Approach (ICD-10-PCS; principal; 2020-04-26 13:00)
DX: E11.52 Type 2 diabetes mellitus with diabetic peripheral angiopathy with gangrene (principal); N18.6 End stage renal disease; I12.0 Hypertensive chronic kidney disease with stage 5 chronic kidney disease or end stage renal disease; M86.8X8 Other osteomyelitis, other site; E87.1 Hypo-osmolality and hyponatremia; I69.354 Hemiplegia and hemiparesis following cerebral infarction affecting left non-dominant side; I96 Gangrene, not elsewhere classified; N25.81 Secondary hyperparathyroidism of renal origin; E46 Unspecified protein-calorie malnutrition; E11.69 Type 2 diabetes mellitus with other specified complication; E11.621 Type 2 diabetes mellitus with foot ulcer; L97.529 Non-pressure chronic ulcer of other part of left foot with unspecified severity; E11.22 Type 2 diabetes mellitus with diabetic chronic kidney disease; Z99.2 Dependence on renal dialysis; Z85.850 Personal history of malignant neoplasm of thyroid; D72.829 Elevated white blood cell count, unspecified; Z79.82 Long term (current) use of aspirin; Z79.4 Long term (current) use of insulin; Z79.02 Long term (current) use of antithrombotics/antiplatelets; Z79.899 Other long term (current) drug therapy; H54.8 Legal blindness, as defined in USA; E78.5 Hyperlipidemia, unspecified; K21.9 Gastro-esophageal reflux disease without esophagitis; Z90.49 Acquired absence of other specified parts of digestive tract; E11.319 Type 2 diabetes mellitus with unspecified diabetic retinopathy without macular edema; E11.65 Type 2 diabetes mellitus with hyperglycemia; L03.031 Cellulitis of right toe; Z79.891 Long term (current) use of opiate analgesic; Z95.828 Presence of other vascular implants and grafts; D63.1 Anemia in chronic kidney disease; Z91.19 Patient's noncompliance with other medical treatment and regimen; Z91.11 Patient's noncompliance with dietary regimen; N25.0 Renal osteodystrophy; F17.210 Nicotine dependence, cigarettes, uncomplicated; Z68.24 Body mass index [BMI] 24.0-24.9, adult; E11.51 Type 2 diabetes mellitus with diabetic peripheral angiopathy without gangrene; E11.43 Type 2 diabetes mellitus with diabetic autonomic (poly)neuropathy; K31.84 Gastroparesis; E87.5 Hyperkalemia; Z20.828 Contact with and (suspected) exposure to other viral communicable diseases
CPT/HCPCS: 36415; 80048; 80053; 80069; 80076; 80202; 82150; 82550; 82553; 82947; 83605; 83690; 83735; 83930; 84145; 84484; 85025; 85027; 85610; 85730; 86140; 86704; 86706; 86803; 87040; 87340; 88305; 88311; 90935; 93005; 93925; 96365; 96366; 96375; 99285; J0360; J0692; J1100; J1170; J1644; J1815; J2250; J2405; J2704; J3010; J3370; J7040; J7050; P9047; Q5105; U0002

== ENCOUNTER 2020-04-29 12:50 | Inpatient (IN) | payer OTHER ==
--- OUTSIDE RECORDS SUMMARY | 2020-04-29 12:55 | XMS REPORT | Clinical Summary ---
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 ([facility]); Other specified hypothyroidism; Acute metabolic encephalopathy; DELMA (acute kidn ey injury) ([facility]) 07/15/2019 Travel 07/15/2019 Documentation Internal Medicine Negar Douglas MD after 04/29/2019 Family History Medical History Relation Name Comments [...] Taken Blood Pressure 163/76 07/18/2019 11:00 AM MAINT MECHANIC Pulse 85 07/18/2019 11:00 AM MAINT MECHANIC Temperature 36.5 C (97.7 F) 07/18/2019 11:00 AM MAINT MECHANIC Respiratory Rate 18 07/18/2019 11:00 AM MAINT MECHANIC Oxygen Saturation 98% 07/18/2019 11:00 AM MAINT MECHANIC Inhaled Oxygen Concentration - - Weight 98.8 kg (217 lb 13 oz) 07/16/2019 5:08 PM MAINT MECHANIC Height 162.6 cm (5' 4") 07/15/2019 9:22 PM MAINT MECHANIC Body Mass Index 37.39 07/16/2019 5:08 PM MAINT MECHANIC Plan of Treatment Health Maintenance Due Date [...] PROCEDURE - 07/21/2019 8:51 ENDOSCOPY SCAN AM MAINT MECHANIC RHYTHM STRIP - SCAN 07/21/2019 8:50 AM MAINT MECHANIC XR CHEST 1 VIEW STAT 07/18/2019 11:09 Results for this PORTABLE/BEDSIDE AM MAINT MECHANIC procedure a re in the results section. POCT-GLUCOSE METER Routine 07/18/2019 8:22 Resul ts for this AM MAINT MECHANIC procedure are i n the results section. CBC W/PLT COUNT & AUTO Routine 07/18/2019 4:37 R esults for this DIFFERENTIAL AM MAINT MECHANIC procedure are i n the results section. CBC W/PLT COUNT & AUTO Routine 07/18/2019 4:37 R esults for this DIFFERENTIAL AM MAINT MECHANIC procedure are i n the results section. PROTHROMBIN TIME/INR Routine 07/18/2019 4:37 Res ults for this AM MAINT MECHANIC procedure are i n the results section. PHOSPHORUS Routine 07/18/2019 4:37 Results for this AM MAINT MECHANIC procedure are i n the results section. MAGNESIUM Routine 07/18/2019 4:37 Results for this AM MAINT MECHANIC procedure are i n the results section. BASIC METABOLIC PANEL Routine 07/18/2019 4:37 Re sults for this (7) AM MAINT MECHANIC procedure are i n the results section. POCT-GLUCOSE METER Routine 07/17/2019 8:56 Resul ts for this PM MAINT MECHANIC procedure are i n the results section. POCT-GLUCOSE METER Routine 07/17/2019 5:07 Resul ts for this PM MAINT MECHANIC procedure are i n the results section. POCT-GLUCOSE METER Routine 07/17/2019 12:28 Resul ts for this PM MAINT MECHANIC procedure are i n the results section. SCREEN, URINE Routine 07/17/2019 11:36 Results for this AM MAINT MECHANIC procedure are i n the results section. POCT-GLUCOSE METER Routine 07/17/2019 7:18 Resul ts for this AM MAINT MECHANIC procedure are i n the results section. CBC W/PLT COUNT & AUTO Routine 07/17/2019 5:55 R esults for this DIFFERENTIAL AM MAINT MECHANIC procedure are i n the results section. CBC W/PLT COUNT & AUTO Routine 07/17/2019 5:55 R esults for this DIFFERENTIAL AM MAINT MECHANIC procedure are i n the results section. PROTHROMBIN TIME/INR Routine 07/17/2019 5:55 Res ults for this AM MAINT MECHANIC procedure are i n the results section. PHOSPHORUS Routine 07/17/2019 5:55 Results for this AM MAINT MECHANIC procedure are i n the results section. MAGNESIUM Routine 07/17/2019 5:55 Results for this AM MAINT MECHANIC procedure are i n the results section. BASIC METABOLIC PANEL Routine 07/17/2019 5:55 Re sults for this (7) AM MAINT MECHANIC procedure are i n the results section. MR BRAIN WITHOUT IV Routine 07/17/2019 12:54 Resu lts for this CONTRAST AM MAINT MECHANIC procedure are i n the results section. MRA NECK WITHOUT IV Routine 07/17/2019 12:54 Resu lts for this CONTRAST AM MAINT MECHANIC procedure are i n the results section. MRA HEAD WITHOUT IV Routine 07/17/2019 12:54 Resu lts for this CONTRAST AM MAINT MECHANIC procedure are i n the results section. ECHOCARDIOGRAM REPORT - 07/16/2019 9:20 SCAN PM MAINT MECHANIC POCT-GLUCOSE METER Routine 07/16/2019 9:03 Resul ts for this PM MAINT MECHANIC procedure are i n the results section. HEMODIALYSIS INPATIENT Routine 07/16/2019 5:23 R esults for this PM MAINT MECHANIC procedure are i n the results section. POCT-GLUCOSE METER Routine 07/16/2019 5:21 Resul ts for this PM MAINT MECHANIC procedure are i n the results section. HEPATITIS B SURFACE Routine 07/16/2019 1:41 Resu lts for this ANTIGEN PM MAINT MECHANIC procedure are i n the results section. POCT-GLUCOSE METER Routine 07/16/2019 1:01 Resul ts for this PM MAINT MECHANIC procedure are i n the results section. POCT-GLUCOSE METER Routine 07/16/2019 12:03 Resul ts for this PM MAINT MECHANIC procedure are i n the results section. 2D ECHO W/ DOPPLER Routine 07/16/2019 11:13 Resul ts for this (CW/PW/COLOR) AM MAINT MECHANIC procedure are in the results section. BASIC METABOLIC PANEL Routine 07/16/2019 8:40 Re sults for this (7) AM MAINT MECHANIC procedure are i n the results section. POCT-GLUCOSE METER Routine 07/16/2019 8:05 Resul ts for this AM MAINT MECHANIC procedure are i n the results section. ECG 12-LEAD STAT 07/16/2019 7:43 Results for this AM MAINT MECHANIC procedure are i n the results section. POCT-GLUCOSE METER Routine 07/16/2019 7:30 Resul ts for this AM MAINT MECHANIC procedure are i n the results section. XR CHEST 1 VIEW Routine 07/16/2019 7:04 Results for this PORTABLE/BEDSIDE AM MAINT MECHANIC procedure a re in the results section. POCT-GLUCOSE METER Routine 07/16/2019 5:21 Resul ts for this AM MAINT MECHANIC procedure are i n the results section. BASIC METABOLIC PANEL STAT 07/16/2019 5:14 Re sults for this (7) AM MAINT MECHANIC procedure are i n the results section. HEMOGLOBIN A1C Routine 07/16/2019 3:50 Results f or this AM MAINT MECHANIC procedure are i n the results section. CBC W/PLT COUNT & AUTO Routine 07/16/2019 3:49 R esults for this DIFFERENTIAL AM MAINT MECHANIC procedure are i n the results section. CBC W/PLT COUNT & AUTO Routine 07/16/2019 3:49 R esults for this DIFFERENTIAL AM MAINT MECHANIC procedure are i n the results section. LIPID PANEL Routine 07/16/2019 3:49 Results for this AM MAINT MECHANIC procedure are i n the results section. PHOSPHORUS Routine 07/16/2019 3:49 Results for this AM MAINT MECHANIC procedure are i n the results section. MAGNESIUM Routine 07/16/2019 3:49 Results for this AM MAINT MECHANIC procedure are i n the results section. HEPATIC FUNCTION PANEL Routine 07/16/2019 3:49 R esults for this AM MAINT MECHANIC procedure are i n the results section. BASIC METABOLIC PANEL Routine 07/16/2019 3:49 Re sults for this (7) AM MAINT MECHANIC procedure are i n the results section. HIV-1 ANTIGEN WITH Routine 07/16/2019 3:48 Resul ts for this HIV-1/2 ANTIBODY AM MAINT MECHANIC procedure a re in the results section. RPR Routine 07/16/2019 3:48 Results for this AM MAINT MECHANIC procedure are i n the results section. VITAMIN B12 AND FOLATE Routine 07/16/2019 3:48 R esults for this AM MAINT MECHANIC procedure are i n the results section. TSH/FREE T4 IF Routine 07/16/2019 3:48 Results f or this INDICATED AM MAINT MECHANIC procedure are i n the results section. PROTHROMBIN TIME/INR Routine 07/16/2019 3:48 Res ults for this AM MAINT MECHANIC procedure are i n the results section. POCT-GLUCOSE METER Routine 07/16/2019 3:34 Resul ts for this AM MAINT MECHANIC procedure are i n the results section. after 04/29/2019 Results EKG-SCANNED (07/21/2019 8:51 AM MAINT MECHANIC) Narrative Performed At This result has an attachment that is no t available. RHYTHM STRIP - SCAN (07/21/2019 8:50 AM MAINT MECHANIC) Narrative Performed At This result has an attachment that is no t available. XR chest 1 view portable / bedside (07/18/2019 11:09 AM MAINT MECHANIC)Only the most recent of2 resultswithin the time period is included. Specimen Narrative Performed At FINAL REPORT [facility] RAD, CHEST, 1 VIEW, NON DEPT INDICATION: r/o pneumonia COMPARISON: July 16, 2019 FINDINGS: Portable frontal view of the c hest. IMPRESSION: Support Lines: Stable left IJ dual-lumen central venous catheter. Lungs and pleura: Lungs are clear. No ef fusion. No pneumothorax. Heart and mediastinum: Stable contours. Additional findings: None. Signed: JR Mccollum Robert MD Report Verified Date/Time:07/18/2019 11:27:35 Reading Location: [email or web address] Reading Room Procedure Note Interface, External Ris In - 07/18/2019 11:29 AM MAINT MECHANIC FINAL REPORT RAD, CHEST, 1 VIEW, NON [...] Verified Date/Time: 07/18/2019 1 1:27:35 Reading Location: [email or web address] Reading Room Performing Organization Address City/State/Zipcode Phone Number [facility] POC-Glucose meter (07/18/2019 8:22 AM MAINT MECHANIC)Only the most recent of13 results within the time period is included. POC-Glucose Meter 126 (H)Comment: : TESTED 70 - 110 mg/dL [facility] [address] [facility], [id number]: Gas Appliance Mechanic/Face Worker ID = [id number] for Baldomero Kuo Specimen Blood Performing Organization Address City/State/Zipcode Phone Number [facility] [address] [place] [address] CENTER CBC with platelet count + automated diff (07/18/2019 4:37 AM MAINT MECHANIC)Only the most recent of3 resultswithin the time period is included. WBC 13.0 (H) 3.5 - 10.5 K/L [facility] RBC 3.80 (L) 3.93 - 5.22 M/L [facility] Hemoglobin 11.3 11.2 - 15.7 GM/DL [facility] Hematocrit 35.2 34.1 - 44.9 % [facility] MCV 92.6 79.4 - 94.8 fL [facility] MCH 29.7 25.6 - 32.2 pg [facility] MCHC 32.1 (L) 32.2 - 35.5 GM/DL [facility] RDW 13.6 11.7 - 14.4 % [facility] Platelets 233 150 - 450 K/CU MM [facility] MPV 9.5 9.4 - 12.3 fL [facility] nRBC 0 0 - 0 /100 WBC [facility] % Neutros 70 % [facility] % Lymphs 20 % [facility] % Monos 7 % [facility] % Eos 2 % [facility] % Baso 1 % [facility] # Neutros 9.09 (H) 1.56 - 6.13 K/L [facility] # Lymphs 2.65 1.18 - 3.74 K/L [facility] # Monos 0.93 (H) 0.24 - 0.36 K/L [facility] # Eos 0.24 0.04 - 0.36 K/L [facility] # Baso 0.07 0.01 - 0.08 K/L [facility] Immature Granulocytes-Relative 0 0 - 1 % C [facility] Specimen Blood Performing Organization Address City/[facility] Phone Number [address] [address] CENTER Prothrombin time/INR (07/18/2019 4:37 AM MAINT MECHANIC)Only the most recent of3 results within the time period is included. Protime 12.2 11.9 - 14.2 seconds [facility] INR 1.0 <=5.9 [facility] Specimen Blood Narrative Performed At Effective 01/12/2019: PT Reference Range [facility] Change New: 11.9-14.2Previous: 11.7-14.7 RECOMMENDED COUMADIN/WARFARIN INR THERAPY RANGES STANDARD DOSE: 2.0-3.0Includes: PROPHYLAXIS for venous thrombosis, systemic embolization; TREATMENT for venous thrombosis and/or pulmonary embolus. HIGH RISK: Target INR is 2.5-3.5 for patients wiht mechanical heart valves. Performing Organization Address City/[facility] Hospitalcode Phone Number [address] [address] CENTER Phosphorus (07/18/2019 4:37 AM MAINT MECHANIC)Only the most recent of3 resultswithin the time period is included. Phosphorus 4.6 2.3 - 4.7 mg/dL [facility] Specimen Blood Performing Organization Address City/[facility]/Zipcode Phone Number [address] [address] CENTER Magnesium (07/18/2019 4:37 AM MAINT MECHANIC)Only the most recent of3 resultswithin the time period is included. Magnesium 2.0 1.6 - 2.6 mg/dL [facility] Specimen Blood Performing Organization Address City/[facility]/Zipcode Phone Number [facility] [address] [place] [address] [place] Basic metabolic panel (07/18/2019 4:37 AM MAINT MECHANIC)Only the most recent of5 results within the time period is included. Sodium 134 (L) 136 - 145 meq/L [facility] Potassium 5.0 3.5 - 5.1 meq/L [facility] Chloride 103 98 - 107 meq/L [facility] CO2 25 22 - 29 meq/L [facility] BUN 28 (H) 7 - 21 mg/dL [facility] Creatinine 5.40 (H) 0.57 - 1.25 mg/dL [facility] Glucose 146 (H) 70 - 105 mg/dL [facility] Calcium 8.8 8.4 - 10.2 mg/dL [facility] EGFR 9Comment: ESTIMATED GFR IS mL/min/1.73 sq m [facility] NOT ACCURATE CREATININE [facility] CLEARANCE IN PREDICTING GLOMERULAR FILTRATION RATE. ESTIMATED GFR IS NOT APPLICABLE FOR DIALYSIS PATIENTS. Specimen Blood Performing Organization Address [facility]/Zipcode Phone Number [place] [phone] [place] [address] [place] Screen, urine (07/17/2019 11:36 AM MAINT MECHANIC) Preg Test, Ur Negative [facility] Specimen Urine Performing Organization Address [facility]/Zipcode Phone Number [place] [phone] [place] [address] [place] MR brain without IV contrast (07/17/2019 12:54 AM MAINT MECHANIC) Specimen Narrative Performed At FINAL REPORT [facility] MR, BRAIN, WITHOUT CONTRAST, MR, MRA, [...] External Ris In - 07/17/2019 4:57 AM MAINT MECHANIC FINAL REPORT MR, BRAIN, WITHOUT CONTRAST, MR, [...] 3:28:33 Performing Organization Address City/State/Zipcode Phone Number [facility] MR MRA neck without contrast (07/17/2019 12:54 AM MAINT MECHANIC) Specimen Narrative Performed At FINAL REPORT [facility] MR, BRAIN, WITHOUT CONTRAST, MR, MRA, [...] External Ris In - 07/17/2019 4:57 AM MAINT MECHANIC FINAL REPORT MR, BRAIN, WITHOUT CONTRAST, MR, [...] 3:28:33 Performing Organization Address City/State/Zipcode Phone Number [employer] [facility] MR MRA head without contrast (07/17/2019 12:54 AM MAINT MECHANIC) Specimen Narrative Performed At FINAL REPORT ERNESTINA [...] External Ris In - 07/17/2019 4:57 AM MAINT MECHANIC FINAL REPORT MR, BRAIN, WITHOUT CONTRAST, MR, [...] 3:28:33 Performing Organization Address City/State/Zipcode Phone Number [facility] ECHOCARDIOGRAM REPORT - SCAN (07/16/2019 9:20 PM MAINT MECHANIC) Narrative Performed At This result has an attachment that is no t available. HEMODIALYSIS INPATIENT (07/16/2019 5:23 PM MAINT MECHANIC) Narrative Performed At Jeff Mcduffie RN 06/195:24 [...] Hepatitis B surface antigen (07/16/2019 1:41 PM MAINT MECHANIC) HBsAg Screen Nonreactive Nonreactive [facility] Specimen Blood Performing Organization Address City/State/Zipcode Phone Number [place] [phone] [place] [address] CENTER 2D Echo W/Doppler(CW/PW/Color) (07/16/2019 11:13 AM MAINT MECHANIC) Ejection Fraction [facility] Specimen Narrative Performed At Transthoracic Echocardiography Report (T TE) [facility] Demographics Patient NameSPeyman HUTCHINSON of Study07/16/2019 Gender Female Visit [id number] Race Unknown [id number] Number Date of 1975 [facility] Phys[facility] Age 43 year(s) SonographerDaja Arthur, [facility] Flower Cutter Yanna McdonaldInterpreting Marcella Yanez MD [place] Physician [...] External Ris In - 07/16/2019 2:11 PM MAINT MECHANIC Transthoracic Echocardiography Report (TTE) Demographics Patient Name ARCHANA WOO Date of St udy 07/16/2019 Gender Female Visit Number [id number] [id number] Number Date of 1975 Referring Arvin Ann Physician Age 43 year(s) Sonographe r Daja Arthur, [facility] Flower Cutter Yanna Blanchardi MD Oscar Dupont Physician Procedure [...] City/State/Zipcode Phone Number [facility] ECHO HE[facility] ECG 12 lead (07/16/2019 7:43 AM MAINT MECHANIC) Specimen Narrative Performed At Ventricular Rate 87 BPM GE MUSE Atrial Rate 87 BPM P-R Interval 136 ms QRS Duration 72 ms Q-T Interval 380 ms QTC Calculation(Bazett) 457 ms P [place] 68 degrees R [place] 17 degrees T [place] 65 degrees Normal sinus rhythm Normal ECG When compared with ECG of 19-MAR-2017 15 :16, QT has shortened Confirmed by MD BROCK, LAKSHMI ([id number]) on 07/18/2019 7:35:43 AM Procedure Note Interface, External Ris In - 07/18/2019 7:35 AM MAINT MECHANIC Ventricular Rate 87 BPM Atrial Rate 87 BPM P-R Interval 136 ms QRS Duration 72 ms Q-T Interval 380 ms QTC Calculation(Bazett) 457 ms P [place] 68 degrees R [place] 17 degrees T [place] 65 degrees Normal sinus rhythm Normal ECG When compared with ECG of 19-MAR-2017 15 :16, QT has shortened Confirmed by MD BROCK, LAKSHMI ([id number]) on 07/18/2019 7:35:43 AM Performing Organization Address City/State/Zipcode Phone Number GE MUSE Hemoglobin A1c (07/16/2019 3:50 AM MAINT MECHANIC) Hemoglobin A1C 9.5 (H) 4.3 - 6.1 % [facility] Specimen Blood Performing Organization Address City/State/Zipcode Phone Number [address] [address] CENTER Hepatic function panel (07/16/2019 3:49 AM MAINT MECHANIC) Protein, Total 6.3 6.0 - 8.3 gm/dL [facility] Albumin 3.0 (L) 3.5 - 5.0 g/dL [facility] Total Bilirubin 0.4 0.2 - 1.2 mg/dL [facility] Bilirubin, Direct 0.2 0.1 - 0.5 mg/dL [facility] Alkaline Phosphatase 182 (H) 40 - 150 U/L [facility] AST 63 (H) 5 - 34 U/L [facility] ALT 99 (H) 6 - 55 U/L [facility] Specimen Blood Performing Organization Address City/[facility] Phone Number [address] [address] [place] Lipid panel (07/16/2019 3:49 AM MAINT MECHANIC) Triglycerides 100 mg/dL [facility] Cholesterol 177 mg/dL [facility] HDL 48 mg/dL [facility] LDL Calculated 109 mg/dL [facility] Specimen Blood Narrative Performed At Triglyceride Reference Range: [facility] Low Risk <150 [id number] High Risk 200-499 Very High Risk>=500 Cholesterol Reference Range: Low Risk <200 [id number] High Risk>240 HDL Cholesterol Reference Range: Low Risk >=60 High Risk <40 LDL Cholesterol Reference Range: Optimal<100 Near [id number] Very High >=190 Performing Organization Address City/[facility] Phone Number [address] [address] [place] Vitamin B12 and Folate (07/16/2019 3:48 AM MAINT MECHANIC) Vitamin B12 525 213 - 816 pg/mL [facility] Folate 6.5 (L) >=7.0 ng/mL [facility] Specimen Blood Performing Organization Address City/[facility]/Zipcode Phone Number [address] [address] [place] TSH/Free T4 If Indicated (07/16/2019 3:48 AM MAINT MECHANIC) TSH 0.87 0.35 - 4.94 uIU/mL [facility] Specimen Blood Performing Organization Address City/[facility]/Zipcode Phone Number [address] [address] [place] HIV-1 Antigen with HIV-1/2 Antibody (07/16/2019 3:48 AM MAINT MECHANIC) HIV-1 Antigen with HIV 1&2 Nonreactive Nonreactive [facility] Specimen Blood Performing Organization Address City/State/Zipcode Phone Number [facility] [address] [place] [address] CENTER RPR (07/16/2019 3:48 AM MAINT MECHANIC) RPR Nonreactive Nonreactive [facility] Specimen Blood Performing Organization Address City/State/Zipcode Phone Number [facility] [address] [place] [address] CENTER after 04/29/2019 Insurance Payer Benefit Plan / Subscriber ID Type Phone Address Group [facility] MEDICARE xxxxxxxxx MEDICARE MGD CARE HMO MEDICAID - MEDICAID [facility] COMM STAR xxxxxxxxx Medicaid Contracted MGD CARE PLAN Advance Directives For more information, please contact:[address] [phone] Code Status Date Activated Date Inactivated Comments Full Code 07/16/2019 12:46 AM 07/18/2019 4:56 PM This code status was determined by: Patient Full Code 03/14/2017 8:30 PM 03/20/2017 12:11 PM This code status was determined by: Patient
--- OUTSIDE RECORDS SUMMARY | 2020-04-29 12:57 | XMS REPORT | Continuity of Care Document ---
:1975 Author Organization [facility] t Address [address] [place] [address] Care Team Providers Name Role Phone Stella REYNOSO Attending Clinician Seth REYNOOS Attending Clinician Graham Schultz MD Attending Clinician Raphael REYNOSO Attending Clinician STELLA Attending Clinician Unavailable LYN EDWARDS Attending Clinician Unavailable Graham SCHULTZ Admitting Clinician Unavailable LYN EDWARDS Admitting Clinician Unavailable Payers Payer Name Policy Policy Number Effective Expiration Source Type Date Date [facility] - xxxxxxxxx [facility] MEDICARE MGD CAREUNITED L ukes - MEDICARE HMOxxxxxxxxx [facility] MEDICAID - MEDICAID MGD xxxxxxxxx [facility] CAREMCD COMM STAR [facility] - PLANxxxxxxxxxMedicaid [facility] Contracted Center Problems Condition Condition Condition Status Onset Resolution Last Treating Co mments Source Name Details Category Date Date Treatment Clinician Date Left sided Left sided Disease Active 2018-[address] numbness numbness 09-15 [facility] - [facility]: Medical [address] ESRD on ESRD on Disease Active 2018-[address] dialysis dialysis 09-15 [facility] - 00[facility]: Medical [address] Proteinuri Proteinuri Disease Active [facility] [...] 03-16 [facility] - encephalop encephalop 00:00: [facility] 00 Center Cerebrovas Cerebrovas [...] 03-15 [facility]ann kes - phageal phageal 00:00: [facility] reflux reflux [address] disease) disease) COPD COPD Disease Active [facility] ([facility]ronic (chronic 03-15 [facility] - obstructiv obstructiv 00:00: [facility] d[facility] e e 00 Center pulmonary pulmonary [...] 7-30 Carolann kes - y y 00:00: [place] [address] Center Allergies, Adverse Reactions, Alerts Allergy Allergy Status Severity Reaction(s) Onset Inactive Treating Comm ents Source Name Type Date Date Clinician No Known DA Active [facility] 08[facility]22 [place] 00:[facility]: [address] Family History Family Member Diagnosis Comments Start Date Stop Date Source Natural father Hypertension [facility] Natural mother Diabetes [facility] Natural mother Kidney disease [facility] Social History Social Habit Start Date Stop Date Quantity Comments Source Sex Assigned At [facility] Smoking Status Start Date Stop Date Source Current every day smoker 2019-07-16 00:00:00 [facility] Medications Ordered Filled Start Stop Current [...] for 30 days. cyclobenzap 2018-08 Yes 2.5mg Q.[id number] Take 2.[address] rine 0-16 [id number] mg by [facility] - (FLEXERIL) 00:00: 3D mouth 3 Medi ghassan 5 MG tablet 00 (three) Cente r times daily. DULoxetine 2018-08 Yes 30mg QD Take [address] (CYMBALTA) 0-16 by mouth [facility] - 30 MG 00:00: daily. Medical capsule [address] [place] [address] famotidine 2018-08 Yes 20mg QD Take 20 [...] Center needed for Anxiety. busPIRone Yes 10mg Q.46731384 Take [address] (BUSPAR) 10 7-30 [id number] by mouth 3 [facility] - MG tablet [...] blood 2019-07-18 11:00:00 163 mm[Hg] [facility] Diastolic blood 2019-07-18 11:00:00 76 mm[Hg] [facility] S t [facility] pressure [facility] Heart rate 2019-07-18 11:00:00 85 /min [facility] Body temperature 2019-07-18 11:00:00 36.5 Mallory [facility] Respiratory rate 2019-07-18 11:00:00 18 /min [facility] Oxygen saturation in 2019-07-18 11:00:00 98 /min [facility] - Arterial blood by Medical Ce nter Pulse oximetry Body weight Measured 2019-07-16 17:08:00 98.8 kg [facility] BMI 2019-07-16 17:08:00 37.39 kg/m2 [facility] Body height 2019-07-15 21:22:00 162.6 cm [facility] Procedures Procedure Date / Time Performing Clinician Source Performed REPORT OF PROCEDURE - 2019-07-21 08:51:04 Provider, Default [facility] ENDOSCOPY SCAN Scanning [facility] RHYTHM STRIP - SCAN 2019-07-21 08:50:54 Provider, Default [facility] XR CHEST 1 VIEW 2019-07-18 11:09:00 Ann Lim [facility] PORTABLE/BEDSIDE [facility] POCT-GLUCOSE METER 2019-07-18 08:22:00 Ann Lim [facility] BASIC METABOLIC PANEL (7) 2019-07-18 04:37:00 [facility] 2019-07-18 04:37:00 [facility] PHOSPHORUS 2019-07-18 04:37:00 [facility] PROTHROMBIN TIME/INR 2019-07-18 04:37:00 [facility] CBC W/PLT COUNT & AUTO 2019-07-18 04:37:00 [facility] POCT-GLUCOSE METER 2019-07-17 20:56:00 Shania Schultz [facility] POCT-GLUCOSE METER 2019-07-17 17:07:00 Shania Schultz [facility] POCT-GLUCOSE METER 2019-07-17 12:28:00 Shania Schultz [facility] SCREEN, URINE 2019-07-17 11:36:00 Ann Cook [facility] POCT-GLUCOSE METER 2019-07-17 07:18:00 Shania Schultz [facility] BASIC METABOLIC PANEL (7) 2019-07-17 05:55:00 [facility] MAGNESIUM 2019-07-17 05:55:00 [facility] PHOSPHORUS 2019-07-17 05:55:00 [facility] PROTHROMBIN TIME/INR 2019-07-17 05:55:00 [facility] CBC W/PLT COUNT & AUTO 2019-07-17 05:55:00 [facility] MRA HEAD WITHOUT IV 2019-07-17 00:54:00 [facility] MRA NECK WITHOUT IV 2019-07-17 00:54:00 [facility] MR BRAIN WITHOUT IV 2019-07-17 00:54:00 [facility] ECHOCARDIOGRAM REPORT - 2019-07-16 21:20:18 Provider, Default [facility] POCT-GLUCOSE METER 2019-07-16 21:03:00 Shania Schultz [facility] HEMODIALYSIS INPATIENT 2019-07-16 17:23:31 Ashwin Cole [facility] POCT-GLUCOSE METER 2019-07-16 17:21:00 Shania Schultz [facility] HEPATITIS B SURFACE 2019-07-16 13:41:00 Ashwin Cole [facility] POCT-GLUCOSE METER 2019-07-16 13:01:00 Shania Schultz [facility] POCT-GLUCOSE METER 2019-07-16 12:03:00 Shania Schultz [facility] 2D ECHO W/ DOPPLER 2019-07-16 11:13:59 [facility] (CW/PW/COLOR) [facility] BASIC METABOLIC PANEL (7) 2019-07-16 08:40:00 [facility] POCT-GLUCOSE METER 2019-07-16 08:05:00 Shania Schultz [facility] ECG 12-LEAD 2019-07-16 07:43:10 [facility] POCT-GLUCOSE METER 2019-07-16 07:30:00 [facility] 2019-07-16 07:04:00 [facility] PORTABLE/BEDSIDE [facility] [place] POCT-GLUCOSE METER 2019-07-16 05:21:00 [facility] BASIC METABOLIC PANEL (7) 2019-07-16 05:14:00 [facility] HEMOGLOBIN A1C 2019-07-16 03:50:00 [facility] BASIC METABOLIC PANEL (7) 2019-07-16 03:49:00 [facility] HEPATIC FUNCTION PANEL 2019-07-16 03:49:00 [facility] MAGNESIUM 2019-07-16 03:49:00 [facility] PHOSPHORUS 2019-07-16 03:49:00 [facility] LIPID PANEL 2019-07-16 03:49:00 [facility] CBC W/PLT COUNT & AUTO 2019-07-16 03:49:00 [facility] PROTHROMBIN TIME/INR 2019-07-16 03:48:00 [facility] TSH/FREE T4 IF INDICATED 2019-07-16 03:48:00 [facility] VITAMIN B12 AND FOLATE 2019-07-16 03:48:00 [facility] RPR 2019-07-16 03:48:00 [facility] HIV-1 ANTIGEN WITH HIV-1/2 2019-07-16 03:48:[address] [facility] POCT-GLUCOSE METER 2019-07-16 03:34:00 Arvin Ann [facility] [id number] 2019-05-18 00:00:00 ENCPL [id number] 2019-05-18 00:00:00 ENCPL [id number] 2019-05-18 00:00:00 ENCPL [id number] 2019-05-18 00:00:00 ENCPL Plan of Care Planned Activity Planned Date Details Comments Source Future Scheduled 2022-07-[address] [facility] - Test 00:00:00 (procedure) [code = Medical Center 16232266] Future Scheduled 2020-04-17 INFLUENZA VACCINE (#1) [facility] [code = INFLUENZA Medical Ce nter VACCINE (#1)] Future Scheduled 2019-10-[address] [facility] - Test 00:00:00 measurement Medical Center (procedure) [code = 56915450] Future Scheduled 2018-03-17 Urine screening for [facility] Test 00:00:00 protein (procedure) Medical Center [code = 527991009] Future Scheduled 2017-08-[address] [facility] - Test 00:00:00 WELLNESS (YEAR 2 or Medical Center FIRST YEAR if no IPPE) [code = MEDICARE ANNUAL WELLNESS (YEAR 2 or FIRST YEAR if no IPPE)] Future Scheduled 1995-10-[address] [facility] - Test 00:00:00 [facility] [place] cervix (procedure) [code = 736669710] Future Scheduled [address] DIABETIC EYE EXAM [facility] - Test 00:00:00 [code = DIABETIC EYE Medical Center EXAM] Future Scheduled [address] [facility] - Test 00:00:00 examination Medical Center (regime/therapy) [code = 421927065] Future Scheduled [address] [facility] - Test 00:00:00 2-64 YEARS AT RISK (1 Medica l Center of 3 - PCV13) [code = PNEUMOCOCCAL VACCINE 2-64 YEARS AT RISK (1 of 3 - PCV13)] Encounters Start End Encounter Admission Attending Care Care Encounter Source Date/Time Date/Time Type Type Clinicians Facility Department ID 2019-04-12 Inpatient [facility] [address] [facility] 13:57:46 Results Test Description Test Time [...] to HBV infection.~~~~~ ~~~~~~~~~~~~~~~~~~~~~~~~~~~~~~~~~~~~~~~~~~~~~~~~~~~~~~~ AG HEPATITIS B [id number] 18:16:00 Test Item Value Reference Range Interpretation Comments AG HEPATITIS B SURFACE (test code = NEGATIVE NONREACTIVE HBSAG) HIV 12 AB [id number] 18:16:00 Test Item Value Reference Range Interpretation Comments HIV 1 2 COMBO AG/AB SCREEN AB/AG NON REACTIVE NONREACTIVE (test code = [id number]) HEPATITIS B SURF AB, [id number] 17:51:00 Test Item Value Reference Range Interpretation Comments HEPATITIS B SURF AB, QUANT (test code mIU/mL = HBSABQ) AG HEPATITIS B [id number] 17:51:00 Test Item Value Reference Range Interpretation Comments AG HEPATITIS B SURFACE (test code = NEGATIVE NONREACTIVE HBSAG) HIV 12 AB [id number] 17:51:00 Test Item Value Reference Range Interpretation Comments HIV 1 2 COMBO AG/AB SCREEN AB/AG NON REACTIVE NONREACTIVE (test code = [id number]) HEPATITIS B SURF AB, [id number] 17:39:00 Test Item Value Reference Range Interpretation Comments HEPATITIS B SURF AB, QUANT (test code mIU/mL = HBSABQ) AG HEPATITIS B [id number] 17:39:00 Test Item Value Reference Range Interpretation Comments AG HEPATITIS B SURFACE (test code = NEGATIVE NONREACTIVE HBSAG) HIV 12 AB [id number] 17:39:00 Test Item Value Reference Range Interpretation Comments HIV 1 2 COMBO AG/AB SCREEN (test code = NONREACTIVE [id number]) GLUCOSE BEDSIDE [id number] 12:00:00 Test Item Value Reference Range Interpretation Comments GLUCOSE BEDSIDE TESTING (test code 136 MG/DL 60-99 H = GLUBED) GLUCOSE BEDSIDE [id number] 21:08:00 Test Item Value Reference Range Interpretation Comments GLUCOSE BEDSIDE TESTING (test code = 84 MG/DL 60-99 N GLUBED) BASIC METABOLIC [id number] 16:40:00 Test Item Value Reference Range Interpretation [...] 9.0 MG/DL 8.4-10.2 N CA) HCG SERUM [id number] 16:40:00 Test Item Value Reference Range Interpretation Comments HCG SERUM QUAL (test code = HCGQL) NEGATIVE NEGATIVE A PROTHROMBIN [id number] 16:32:00 Test Item Value Reference Range Interpretation [...] sunshine embolism. 3.0 - 4.5 Comments to Material Control Analyst: PREOPPTT [id number] 16:32:00 Test Item Value Reference Range Interpretation Comments PTT ACTIVATED (test code = APTT) 30.3 SECONDS 22.0-33.0 N Comments to Material Control Analyst: PREOPBASIC METABOLIC [id number] 16:32:00 Test Item Value Reference Range Interpretation [...] code = CA) MG/DL 8.7-9.7 HCG SERUM [id number] 16:32:00 Test Item Value Reference Range Interpretation Comments HCG SERUM QUAL (test code = HCGQL) NEGATIVE NEGATIVE A BASIC METABOLIC [id number] 16:31:00 Test Item Value Reference Range Interpretation [...] code = CA) MG/DL 8.7-9.7 HCG SERUM [id number] 16:31:00 Test Item Value Reference Range Interpretation Comments HCG SERUM QUAL (test code = HCGQL) NEGATIVE CBC W/AUTO [id number] 16:25:00 Test Item Value Reference Range Interpretation [...] 0.00 K/mm3 0.0-0.1 N NRBC#) GLUCOSE BEDSIDE [id number] 18:41:00 Test Item Value Reference Range Interpretation Comments GLUCOSE BEDSIDE TESTING (test code = 83 MG/DL 60-99 N GLUBED) BASIC METABOLIC [id number] 15:04:00 Test Item Value Reference Range Interpretation [...] 9.1 MG/DL 8.4-10.2 N CA) BASIC METABOLIC [id number] 15:00:00 Test Item Value Reference Range Interpretation [...] code = CA) MG/DL 8.7-9.7 HCG SERUM [id number] 14:59:00 Test Item Value Reference Range Interpretation Comments HCG SERUM QUAL (test code = HCGQL) NEGATIVE NEGATIVE A PROTHROMBIN [id number] 14:56:00 Test Item Value Reference Range Interpretation [...] syste sunshine embolism. 3.0 - 4.5 PTT [id number] 14:56:00 Test Item Value Reference Range Interpretation Comments PTT ACTIVATED (test code = APTT) 27.9 SECONDS 22.0-33.0 N CBC W/AUTO [id number] 14:43:00 Test Item Value Reference Range Interpretation [...] (test code = 0.00 K/mm3 0.0-0.1 N [facility]#) RAD, CHEST, 1 VIEW, NON [id number] 11:27:00Reason for exam:->r/o pneumoniaShould this be performed [...] MDReport Verified Date/Time: 07/18/2019 11:27:35 Reading Location: [facility] Radiology Reading Room XR chest 1 view portable / [id number] 11:27:00 Interface, External Ris In - 07/18/2019 [...] Robert MDReport Verified Date/Time: 07/18/201911:27:35 Reading Location: [facility] Radiology [facility] [id number] 08:34:00 Test Item Value Reference Range Interpretation Comments POC-Glucose Meter (test 126 mg/dL 70-110 H : TE STED AT [facility] code = 1538) [address] [facility], 770 30: Transfusion Aide/Techni tammy ID = [id number] for Lenora Kuo ond Lab Interpretation (test Abnormal code = 06468-2) [facility]-GLUCOSE [id number] 08:34:00 Test Item Value Reference Range Interpretation Comments POC-GLUCOSE METER 126 mg/dL 70-110 H : TESTED A T [facility] 6720 (BEAKER) (test code = [place], 1538) [address]: Transfusion Aide/Techni tammy ID = [id number] for Baldomero Carney ECG 12 [id number] 07:35:45Interface, External Ris In - 07/18/2019 7:35 AM CSTVentricular Rate 87 BPMAtrial Rate 87 BPMP-R Interval 136 msQRS Duration 72 msQ-T Interval 380 msQTC Calculation(Bazett) 457 msP [place] 68 degreesR [place] 17 degreesT [place] 65 degreesNormal sinus rhythmNormal ECGWhen compared with ECG of 19-MAR-2017 15:16,QT has shortenedConfirmed by MD BROCK, LAKSHMI ([id number]) on 07/18/2019 7:35:43 [facility] metabolic [id number] 06:56:00 Test Item Value Reference Range Interpretation [...] Calcium (test code = 8.8 mg/dL 8.4-10.2 76325-3) EGFR (test code = 9 mL/min/1.73 [place] [address]-1) NOT ACCURATE CREATININE CLEARANCE IN PREDICTING GLOMERULAR FILTRATION RATE . ESTIMATED GFR I S NOT APPLICABLE FOR DIALYSIS PATIEN TS. Lab Interpretation Abnormal (test code = 60689-8) [facility] METABOLIC [id number] 06:56:00 Test Item Value Reference Range Interpretation [...] S NOT APPLICABLE FOR DIALYSIS PATIEN TS. [id number] 06:45:00 Test Item Value Reference Range Interpretation Comments Magnesium (test code = 39116-2) 2.0 mg/dL 1.6-2.6 Lab Interpretation (test code = Normal 85371-0) [facility] 06:45[facility]00 Test Item Value Reference Range Interpretation Comments Phosphorus (test code = 2777-1) 4.6 mg/dL 2.3-4.7 Lab Interpretation (test code = Normal 35559-4) [facility]2019-12-02 06:45:00 Test Item Value Reference Range Interpretation Comments PHOSPHORUS (BEAKER) (test code = 4.6 mg/dL 2.3-4.7 604) [id number] 06:45:00 Test Item Value Reference Range Interpretation Comments MAGNESIUM (BEAKER) (test code = 2.0 mg/dL 1.6-2.6 627) CBC with platelet count + automated [id number] 05:35:00 Test Item Value Reference Range Interpretation [...] 450 K/CU MM MPV (test code = 47199-0) 9.5 fL 9.4-12.3 nRBC (test code = [...] 2801) Lab Interpretation (test code = Abnormal 34968-6) [facility] W/PLT COUNT & AUTO [id number] 05:35:00 Test Item Value Reference Range Interpretation [...] PERCENT (BEAKER) (test code = 2801) Prothrombin time/[id number] 05:24:00 Test Item Value Reference Range Interpretation [...] valves. Lab Interpretation Normal (test code = 03651-5) [facility]/[id number] 05:24:00 Test Item Value Reference Range Interpretation [...] is2.5-3.5 for patients wiht mechanical heart valves.POCT-GLUCOSE [id number] 21:08:00 Test Item Value Reference Range Interpretation Comments POC-GLUCOSE METER 191 mg/dL 70-110 H : TESTED A T [facility] 6720 ([facility]) (test code = [facility], 1538) [address]: Transfusion Aide/Techni tammy ID = [id number] for Keith Quintero POCT-GLUCOSE [id number] 17:20:00 Test Item Value Reference Range Interpretation Comments POC-GLUCOSE METER 168 mg/dL 70-110 H : TESTED A T [facility] 6720 (BEAKER) (test code = [facility] [email or web address] [facility], 1538) [address]: Transfusion Aide/Techni tammy ID = [id number] for HU NT, MAVIS POCT-GLUCOSE [id number] 12:49:00 Test Item Value Reference Range Interpretation Comments POC-GLUCOSE METER 221 mg/dL 70-110 H : TESTED A T [facility] 6720 (BEAKER) (test code = [facility], 1538) 95377: Transfusion Aide/Techni tammy ID = [id number] for HU NT, MAVIS Screen, [id number] 11:54:00 Test Item Value Reference Range Interpretation Comments Preg Test, Ur (test code = 2112-1) Negative [facility], [id number] 11:54:00 Test Item Value Reference Range Interpretation Comments TEST URINE (BEAKER) (test Negative code = 583) POCT-GLUCOSE [id number] 09:11:00 Test Item Value Reference Range Interpretation Comments POC-GLUCOSE METER 112 mg/dL 70-110 H : TESTED A T [facility] 6720 (BEAKER) (test code = [place], 1538) [address]: Transfusion Aide/Techni tammy ID = [id number] for MAVIS GARRIDO BASIC METABOLIC [id number] 06:50:00 Test Item Value Reference Range Interpretation [...] S NOT APPLICABLE FOR DIALYSIS PATIEN TS. [id number] 06:38:00 Test Item Value Reference Range Interpretation Comments PHOSPHORUS (BEAKER) (test code = 3.9 mg/dL 2.3-4.7 604) [id number] 06:38:00 Test Item Value Reference Range Interpretation Comments MAGNESIUM (BEAKER) (test code = 1.9 mg/dL 1.6-2.6 627) PROTHROMBIN TIME/[id number] 06:12:00 Test Item Value Reference Range Interpretation [...] mechanical heart valves.CBC W/PLT COUNT & AUTO [id number] 06:06:00 Test Item Value Reference Range Interpretation [...] 0-1 PERCENT (BEAKER) (test code = 2801) [id number] 04:27:00 Test Item Value Reference Range Interpretation Comments RPR (test code = 46748-3) Nonreactive Nonreactive Lab Interpretation (test code = Normal 24629-7) [facility] 04:27:00 Test Item Value Reference Range Interpretation Comments RPR SCREEN (BEAKER) (test code = Nonreactive Nonreactive 420) MR, MRA, BRAIN, WITHOUT [id number] 03:28:00Reason for exam:- >StrokeWhat is the patient's [...] 07/17/2019 03:28:33 MR, MRA, NECK, WITHOUT IV [id number] 03:28:00FINAL REPORT MR, BRAIN, WITHOUT CONTRAST, MR, [...] Verified Date/Time: 07/17/2019 03:28:33 MR, BRAIN, WITHOUT [id number] 03:28:00 Reason for exam:->StrokeWhat is the patient's [...] Date/Time: 07/17/2019 03:28:33 MR MRA head without [id number] 03:28:00 Interface, External Ris In - 07/17/2019 [...] Yg Conley MDReport Verified Date/Time: 07/17/2019 03:28:33 [facility] without [id number] 03:28:00Interface, External Ris In - 07/17/2019 4:57 [...] Yg Conley MDReport Verified Date/Time: 07/17/2019 03:28:33 [facility] without IV [id number] 03:28:00Interface, External Ris In - 07/17/2019 4:57 [...] Yg Conley MDReport Verified Date/Time: 07/17/2019 03:28:33 [facility] [id number] 21:16:00 Test Item Value Reference Range Interpretation Comments POC-GLUCOSE METER 143 mg/dL 70-110 H : TESTED A T [facility] 6720 (BEAKER) (test code = [facility], 1538) 26123: Transfusion Aide/Techni tammy ID = [id number] for JANELL GEORGE POCT-GLUCOSE [id number] 17:33:00 Test Item Value Reference Range Interpretation Comments POC-GLUCOSE METER 108 mg/dL 70-110 : TESTED A T [facility] 6720 (BEAKER) (test code = [facility], 1538) 63488: Transfusion Aide/Techni tammy ID = [id number] for TAVON DUVALL POCT-GLUCOSE [id number] 17:25:00 Test Item Value Reference Range Interpretation Comments POC-GLUCOSE METER 155 mg/dL 70-110 H : TESTED A T [facility] 6720 (BEAKER) (test code = [facility], 1538) 25627: Transfusion Aide/Techni tammy ID = [id number] for SIMON CHO HEMODIALYSIS [id number] 17:23:31Tavon Mcduffie RN 07/16/2019 5:24 PMVerified HD [...] Lab Results Component Value Date HEPBSAG Nonreactive 07/16/2019[facility] B surface [id number] 14:30:00 Test Item Value Reference Range Interpretation Comments HBsAg Screen (test code = 5195-3) Nonreactive Nonreactive Lab Interpretation (test code = Normal 77996-8) [facility] B SURFACE [id number] 14:30:00 Test Item Value Reference Range Interpretation Comments HEPATITIS B SURFACE ANTIGEN (2) Nonreactive Nonreactive (BEAKER) (test code = 2585) 2D Echo W/Doppler(CW/PW/Color)2019-07-16 14:11:04Ejection FractionSLEH ECHO HEARTLAB MKCKESSON CPACSInterface, External Ris In - 07/16/2019 2:11 PM C STTransthoracic Echocardiography Report (TTE) Demographics Patient Name GIGI CONROY Date of Study 07/16/2019 Gender Female Visit Number [id number] Race Unknown Room Number 7605 Number Date of 1975 [facility] Age 43 year(s) 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 Arthur, [facility] Utility Gelatin Maker Yanna Mcdonald Interpreting Marcella Yanez MD Ciolan [...] TR Velocity: 2.31 m/s TR Gradient: 21.42 mmHgSan Leandro HospitalPOCT- GLUCOSE [id number] 12:17:00 Test Item Value Reference Range Interpretation Comments POC-GLUCOSE METER 146 mg/dL 70-110 H : TESTED A T [facility] 6720 (BEAKER) (test code = [facility] [email or web address] [facility], 1538) 58805: Transfusion Aide/Techni tammy ID = [id number] for MAVIS GARRIDO BASIC METABOLIC [id number] 09:26:00 Test Item Value Reference Range Interpretation [...] NOT APPLICABLE FOR DIALYSIS PATIEN TS. POCT-GLUCOSE [id number] 08:27:00 Test Item Value Reference Range Interpretation Comments POC-GLUCOSE METER 106 mg/dL 70-110 : TESTED A T [facility] 6720 (BEAKER) (test code = [facility] [email or web address] [place], 1538) 157[address]: Transfusion Aide/Techni tammy ID = [id number] for SIMON CHO POCT-GLUCOSE [id number] 07:46:00 Test Item Value Reference Range Interpretation Comments POC-GLUCOSE METER 171 mg/dL 70-110 H : TESTED A T [facility] 6720 (BEAKER) (test code [facility], = 1538) 98793: Transfusion Aide/Techni tammy ID = [id number] for YASMINE VO RAD, CHEST, 1 VIEW, NON [id number] 07:36:00Reason for exam:- >baselineShould this be performed [...] MDReport Verified Date/Time: 07/16/2019 07:36:01 Reading Location: [address] Body Reading Room Hemoglobin [id number] 06:42:00 Test Item Value Reference Range Interpretation Comments Hemoglobin A1C (test code = 4548-4) 9.5 % 4.3-6.1 H Lab Interpretation (test code = Abnormal 57869-6) [facility] [id number] 06:42:00 Test Item Value Reference Range Interpretation Comments HEMOGLOBIN A1C (BEAKER) (test code = 9.5 % 4.3-6.1 H 368) BASIC METABOLIC [id number] 06:27:00 Test Item Value Reference Range Interpretation [...] DIALYSIS PATIEN TS. HIV-1 Antigen with HIV-1/2 [id number] 05:52:00 Test Item Value Reference Range Interpretation Comments HIV-1 Antigen with HIV 1&2 Nonreactive Nonreactive Antibody (test code = 37149-3) Lab Interpretation (test code = Normal 78602-5) [facility] ANTIGEN WITH HIV-1/2 [id number] 05:52:00 Test Item Value Reference Range Interpretation Comments HIV-1 ANTIGEN WITH HIV 1\T\2 Nonreactive Nonreactive ANTIBODY (2) (AKER) (test code = 2586) POCT-GLUCOSE [id number] 05:38:00 Test Item Value Reference Range Interpretation Comments POC-GLUCOSE METER 420 mg/dL 70-110 HH : Notified RN/MD: TESTED (TAINA) (test code AT [facility] [address] = 1538) [facility], [facility] 30: Transfusion Aide/Techni tammy ID = [id number] for YASMINE VO TSH/Free T4 If [id number] 05:11:00 Test Item Value Reference Range Interpretation Comments TSH (test code = 95551-6) 0.87 0.35- 4.94 uIU/mL Lab Interpretation (test code = Normal 15376-0) [facility]Vitamin B12 and [id number] 05:11:00 Test Item Value Reference Range Interpretation Comments Vitamin B12 (test code = 2132-9) 525 pg/mL 213-816 Folate (test code = 2284-8) 6.5 ng/mL >=7.0 L Lab Interpretation (test code = Abnormal 93566-7) [facility] T[facility] [id number] 05:11:00 Test Item Value Reference Range Interpretation Comments THYROID STIMULATING HORMONE 0.87 uIU/mL 0.35-4.94 (BEAKER) (test code = 772) VITAMIN B12 AND [id number] 05:11:00 Test Item Value Reference Range Interpretation Comments VITAMIN B12 (BEAKER) (test code = 525 pg/mL 213-816 774) FOLATE (BEAKER) (test code = 362) 6.5 ng/mL >=7.0 L BASIC METABOLIC [id number] 04:57:00 Test Item Value Reference Range Interpretation [...] NOT APPLICABLE FOR DIALYSIS PATIEN TS. Lipid [id number] 04:47:00 Test Item Value Reference Range Interpretation Comments Triglycerides (test 100 mg/dL code = 2571-8) Cholesterol (test code 177 mg/dL = 2093-3) HDL (test code = 48 mg/dL 2085-9) LDL Calculated (test 109 mg/dL code = 79852-2) YAKELIN (test code = YAKELIN) Triglyceride Reference Range: Low Risk <150 Borderline 150-199 High Risk 200-499 Very High Risk >=500 Cholesterol Reference Range: Low Risk <200 Borderline 200-239 High Risk >240 HDL Cholesterol Reference Range: Low Risk >=60 High Risk <40 LDL Cholesterol Reference Range: Optimal <100 Near Optimal 100-129 Borderline 130-159 High 160-189 Very High >=190 [facility]Hep[facility] function [id number] 04:47:00 Test Item Value Reference Range Interpretation Comments Protein, Total (test code = 2885-2) 6.3 6.0- 8.3 gm/dL Albumin (test code = 78239-6) 3.0 g/dL 3.5-5 L Total Bilirubin (test code = 0.4 mg/dL 0.2-1.2 1974-2) Bilirubin, Direct (test code = 0.2 mg/dL 0.1-0.5 7) Alkaline Phosphatase (test code = 182 U/L 40-150 H 6768-6) AST (test code = 1920-8) 63 U/L 5-34 H ALT (test code = 1742-6) 99 U/L 6-55 H Lab Interpretation (test code = Abnormal 06122-6) [facility]US2019-[facility]-30 04:47:00 Test Item Value Reference Range Interpretation Comments PHOSPHORUS (BEAKER) (test code = 5.5 mg/dL 2.3-4.7 H 604) [id number] 04:47:00 Test Item Value Reference Range Interpretation Comments MAGNESIUM (BEAKER) (test code = 2.0 mg/dL 1.6-2.6 627) LIPID [id number] 04:47:00 Test Item Value Reference Range Interpretation [...] 130-159 High 160-189 Very High >=190HEPATIC FUNCTION [id number] 04:47:00 Test Item Value Reference Range Interpretation [...] = 99 U/L 6-55 H 347) PROTHROMBIN [id number] 04:11:00 Test Item Value Reference Range Interpretation [...] mechanical heart valves.CBC W/PLT COUNT & AUTO [id number] 04:03:00 Test Item Value Reference Range Interpretation [...] PERCENT (BEAKER) (test code = 2801) POCT-GLUCOSE [id number] 03:47:00 Test Item Value Reference Range Interpretation Comments POC-GLUCOSE METER > mg/dL 70-110 HH : Notified RN/MD: TESTED (BEAKER) (test code = AT [facility] [address] [facility] 92[address]) [place] [address] 30: Transfusion Aide/Techni tammy ID = [id number] for SYLVIA JONES FACTOR 5 LEIDEN PCR (THROMBOTIC RISK)2017-03-24 19:24:00 Test Item Value Reference Range Interpretation Comments FACTOR V LEIDEN Negative for the R506Q (BANNER) (test code = (Factor V Leiden) 718) mutation [id number] Martínez Wang MD (BANNER) (test code = (electronic signature) 4297) This test is a genotyping assay which [...] was developed and its performance characteristics [facility], Section of Molecular Pathology. It has not been cleared or approved by the U.S. Food and Drug Administration (FDA), since FDA approval is not requ ired for clinical use of the test. Validation was done as required by the Clinical Laboratory Improvement Amendments of 1988.POCT-GLUCOSE [id number] 07:28:00 Test Item Value Reference Range Interpretation Comments POC-GLUCOSE METER 200 mg/dL 70-110 H TESTED AT [place] [address] (BANNER) (test code = [facility] 1538) [address] POCT-GLUCOSE [id number] 21:18:00 Test Item Value Reference Range Interpretation Comments POC-GLUCOSE METER 211 mg/dL 70-110 H TESTED AT [place] [address] (BANNER) (test code = [facility] 1538) [address] PROTEIN, RANDOM [id number] 19:43:00 Test Item Value Reference Range Interpretation Comments PROTEIN, URINE (BANNER) (test code 286 mg/dL 0-14 H = 1569) CREATININE, RANDOM [id number] 18:27:00 Test Item Value Reference Range Interpretation Comments CREATININE URINE (BANNER) (test 29.3 mg/dL code = 375) Reference Range: No NormalsDILUTE SHIRA VIPER VENOM (DRVV)2017-03-19 12:47:00 Test Item Value Reference Range Interpretation Comments PROTIME (BANNER) (test 11.3 seconds 11.7-14.7 L code = 759) INR (BANNER) (test code 0.8 <=5.9 = 370) PARTIAL THROMBOPLASTIN 28.0 seconds 22.5-36.0 TIME (BEAKER) (test code = 760) DRVV INTERPRETATION Normal DRVV Results (BEAKER) (test code = 1346) DRVV INTERPRETATION Normal Hexagonal (BEAKER) (test code = Phospholipid 143134) [id number] Martínez Wang MD (BANNER) (test code = (electronic 2610) signature) DRVV SCREEN RATIO 0.84 <1.20 (BEAKER) (test code = 3492) Effective 12/20/2013: Test Method ChangeDRVV Screen Ratio, DRVV 1/1 Screen Ratio, DRVV Confirm Ratio,DRVV Normalized Ratio Reference Range: <1.2Protime Reference Range ChangeNew: 11.7-14.7 Previous: 9.8-12.0PTT Reference Range ChangeNew: 22.5-36.0 Previous: 25.8-34.5URINE [id number] 11:40:00 Test Item Value Reference Range Interpretation Comments CULTURE (BANNER) (test 20-29,000 col/mL skin code = 1095) lei POCT-GLUCOSE [id number] 08:33:00 Test Item Value Reference Range Interpretation Comments POC-GLUCOSE METER 293 mg/dL 70-110 H TESTED AT [facility] [address] (BANNER) (test code = [address] [place] 1538) [address] VITAMIN D, [id number] 07:49:00 Test Item Value Reference Range Interpretation Comments VITAMIN D 25-OH (BANNER) (test code = < ng/mL 13.0-47.8 L 2764) CBC W/PLT COUNT & AUTO [id number] 05:59:00 Test Item Value Reference Range Interpretation [...] (BEAKER) (test code = 2801) BASIC METABOLIC [id number] 05:38:00 Test Item Value Reference Range Interpretation [...] S NOT APPLICABLE FOR DIALYSIS PATIEN TS. [id number] 05:37:00 Test Item Value Reference Range Interpretation Comments PHOSPHORUS (BEAKER) (test code = 4.1 mg/dL 2.3-4.7 604) [id number] 05:37:00 Test Item Value Reference Range Interpretation Comments MAGNESIUM (BEAKER) (test code = 1.7 mg/dL 1.6-2.6 627) PTH, [id number] 05:34:00 Test Item Value Reference Range Interpretation Comments PARATHYROID HORMONE INTACT 57.2 pg/mL 8.5-72.5 (BEAKER) (test code = 577) Effective 07/04/2014: Reference Range ChangeNew: 8.5-72.5 Previous: 15.0-90.0 CARDIOLIPIN ANTIBODIES, IGG AND [id number] 22:36:00 Test Item Value Reference Range Interpretation Comments ANTICARDIOLIPIN IGG ANTIBODY (BEAKER) < GPL (test code = 712) ANTICARDIOLIPIN IGM ANTIBODY (BEAKER) 2.8 MPL (test code = 713) Anticardiolipin IgG Result Interpretation:NEG: <20 GPL; U/mlPOS: >/=20 GPL; U/mlAnticardiolipin IgM Result Interpretation:NEG: <20 MPL; U/mlPOS: >/=20 MPL; U/mlPOCT-GLUCOSE [id number] 21:25:00 Test Item Value Reference Range Interpretation Comments POC-GLUCOSE METER 198 mg/dL 70-110 H TESTED AT [place] [address] (BANNER) (test code = [address] [place] 1538) [address] POCT-GLUCOSE [id number] 16:29:00 Test Item Value Reference Range Interpretation Comments POC-GLUCOSE METER 296 mg/dL 70-110 H TESTED AT [place] [address] (BANNER) (test code = [address] [facility] 1538) [address] ANTI-NUCLEAR ANTIBODY (MARY)2017-03-18 15:30:00 Test Item Value Reference Range Interpretation Comments ANTI-NUCLEAR ANTIBODY (MARY) (BEAKER) Negative Negative (test code = 418) HEXAGONAL [id number] 13:21:00 Test Item Value Reference Range Interpretation Comments H[facility]AGON[facility]OLIPID [facility] Negative (test code = 1790) POCT-GLUCOSE [id number] 12:15:00 Test Item Value Reference Range Interpretation Comments POC-GLUCOSE METER 140 mg/dL 70-110 H TESTED AT [place] [address] (BANNER) (test code = [facility] Isabel [facility] 1538) [address] PROTEIN C [id number] 11:44:00 Test Item Value Reference Range Interpretation Comments PROTEIN C ACTIVITY (BEAKER) (test 155.0 % 70.0-130.0 H code = 582) Effective 12/20/2013: Reference Range Change-Adult onlyNew: 70.0-130.0 Previous: 70.0-140.0See Protein C Antigen.ANTITHROMBIN [id number] 11:43:00 Test Item Value Reference Range Interpretation Comments ANTITHROMBIN III ACTIVITY (BEAKER) 87.0 % 80.0-120.0 (test code = 711) Effective 12/20/2013: Reference Range Change-Adult onlyNew: 80.0-120.0 Previous: 90.0-128.0POCT-GLUCOSE [id number] 08:17:00 Test Item Value Reference Range Interpretation Comments POC-GLUCOSE METER 107 mg/dL 70-110 TESTED AT [place] [address] (BANNER) ([facility] 1538) [address] BASIC METABOLIC [id number] 06:32:00 Test Item Value Reference Range Interpretation [...] PATIEN TS. CBC W/PLT COUNT & AUTO [id number] 05:56:00 Test Item Value Reference Range Interpretation [...] PERCENT (BEAKER) (test code = 2801) POCT-GLUCOSE [id number] 04:32:00 Test Item Value Reference Range Interpretation Comments POC-GLUCOSE METER 107 mg/dL 70-110 TESTED AT [place] [address] (BANNER) (test code = [address] [facility] 1538) [address] POCT-GLUCOSE [id number] 22:21:00 Test Item Value Reference Range Interpretation Comments POC-GLUCOSE METER 118 mg/dL 70-110 H TESTED AT [place] [address] (BANNER) (test code = [address] [facility] 1538) [address] POCT-GLUCOSE [id number] 21:22:00 Test Item Value Reference Range Interpretation Comments POC-GLUCOSE METER 52 mg/dL 70-110 L Notified Isabel Ro MD/TESTED AT (BANNER) (test code = [place] [address] [address] 1538) [facility] [address] MICROALBUMIN, RANDOM [id number] 17:57:00 Test Item Value Reference Range Interpretation Comments MICROALBUMIN URINE (AKER) (test > mg/dL code = 1794) Reference Range: No NormalsURINALYSIS W/ [id number] 17:36:00 Test Item Value Reference Range Interpretation [...] 516) SOURCE(BEAKER) (test code = Urine, Voided 7619) SCREEN, [id number] 17:36:00 Test Item Value Reference Range Interpretation Comments TEST URINE (BEAKER) (test Negative code = 583) CREATININE, RANDOM [id number] 17:35:00 Test Item Value Reference Range Interpretation Comments CREATININE URINE (BEAKER) (test 33.9 mg/dL code = 375) Reference Range: No NormalsSODIUM, RANDOM [id number] 17:35:00 Test Item Value Reference Range Interpretation Comments SODIUM URINE (BEAKER) (test code = 63 meq/L 243) Reference Range: No NormalsPOCT-GLUCOSE [id number] 17:34:00 Test Item Value Reference Range Interpretation Comments POC-GLUCOSE METER 118 mg/dL 70-110 H TESTED AT [place] [address] (BANNER) (test code = [address] [place] 1538) [address] POCT-GLUCOSE [id number] 13:28:00 Test Item Value Reference Range Interpretation Comments POC-GLUCOSE METER 71 mg/dL 70-110 TESTED AT [place] [address] (BEAKER) (test code = [place] [address] 1538) POCT-GLUCOSE [id number] 10:37:00 Test Item Value Reference Range Interpretation Comments POC-GLUCOSE METER 144 mg/dL 70-110 H TESTED AT [place] [address] (BEAKER) (test code = [facility] Isabel [facility] 1538) [address] POCT-GLUCOSE [id number] 07:18:00 Test Item Value Reference Range Interpretation Comments POC-GLUCOSE METER 60 mg/dL 70-110 L TESTED AT [place] [address] (BEAKER) (test code = [facility] Isabel [facility] [address] 1538) CBC W/PLT COUNT & AUTO [id number] 05:51:00 Test Item Value Reference Range Interpretation [...] (BEAKER) (test code = 2801) BASIC METABOLIC [id number] 05:51:00 Test Item Value Reference Range Interpretation [...] NOT APPLICABLE FOR DIALYSIS PATIEN TS. POCT-GLUCOSE [id number] 21:41:00 Test Item Value Reference Range Interpretation Comments POC-GLUCOSE METER 287 mg/dL 70-110 H TESTED AT [facility] 67[address] (BEAKER) (test code = [address] [place] 1538) [address] BASIC METABOLIC [id number] 12:35:00 Test Item Value Reference Range Interpretation [...] report . CBC W/PLT COUNT & AUTO [id number] 04:54:00 Test Item Value Reference Range Interpretation [...] 0-1 PERCENT (BEAKER) (test code = 2801) [id number] 20:17:00 Test Item Value Reference Range Interpretation Comments RPR SCREEN (BEAKER) (test code = Nonreactive Nonreactive 420) POCT-GLUCOSE [id number] 18:09:00 Test Item Value Reference Range Interpretation Comments POC-GLUCOSE METER 215 mg/dL 70-110 H TESTED AT [facility] [address] (BEAKER) (test code = [address] [place] 1538) [address] CBC W/PLT COUNT & AUTO [id number] 11:54:00 Test Item Value Reference Range Interpretation [...] (BEAKER) (test code = Normal 762) SEDIMENTATION [id number] 10:27:00 Test Item Value Reference Range Interpretation Comments SEDIMENTATION RATE, ERYTHROCYTE 79 mm/HR 0-20 H (BEAKER) (test code = 766) HEMOGLOBIN [id number] 09:33:00 Test Item Value Reference Range Interpretation Comments HEMOGLOBIN A1C (BEAKER) (test code = 9.8 % 4.3-6.1 H 368) VITAMIN [id number] 09:14:00 Test Item Value Reference Range Interpretation Comments VITAMIN B12 (BEAKER) (test code = 1790 pg/mL 213-816 H 774) TSH/FREE T4 IF [id number] 09:14:00 Test Item Value Reference Range Interpretation Comments THYROID STIMULATING HORMONE 1.08 uIU/mL 0.35-4.94 (BEAKER) (test code = 772) BASIC METABOLIC [id number] 08:52:00 Test Item Value Reference Range Interpretation [...] DATA TO CALCULA TE ESTIMATED GFR. FastingLIPID [id number] 08:51:00 Test Item Value Reference Range Interpretation [...] High 160-189 Very High >=190 FastingHCG, QUANTITATIVE, [id number] 01:43:00 Test Item Value Reference Range Interpretation Comments GONADOTROPIN, CHORIONIC (HCG) QUANT < mIU/mL 0-10 (BEAKER) (test code = 649) Non- Females: <10 mIU/mL Females: Gestation Age Reference Range(mIU/mL) 0.2-1 Week 5-50 1-2 Weeks 50-500 2-3 Weeks 100-5,000 3-4Weeks 500-10,000 4-5 Weeks 1,000-50,000 5-6 Weeks 10,000-100,000 6-8 Weeks 15,000-200,000 2-3 Months 10,000-100,000COMPREHENSIVE METABOLIC [id number] 21:57:00 Test Item Value Reference Range Interpretation [...] L (test code = 697) AST (SGOT) (BANNER) 16 U/L 5-34 (test code = 353) ALT (SGPT) (BANNER) 14 U/L 6-55 (test code = 347) EGFR (BANNER) (test mL/min/1.73 INSUFFIC IENT code = 1092) sq m CLINICAL DATA T O CALCULATE ESTIM ATED GFR. Unit CollectPOCT-GLUCOSE [id number] 21:50:00 Test Item Value Reference Range Interpretation Comments POC-GLUCOSE METER 278 mg/dL 70-110 H TESTED AT [facility] 67[address] (BANNER) (test code = [address] [place] 1538) [address]
[2020-04-29] MEDS ORDERED: NA CHLORIDE 0.9% 2,000 ML ONE (13:20)
[2020-04-29] MEDS ORDERED: D50W 25 GM/50 ML SYRINGE/VIAL IV ONE (13:20)
[2020-04-29 13:30] LABS: Absolute Lymphocytes (CBC) 0.3 K/uL (0.7-4.9); Basophils % 0.3 % (0-1.3); Hematocrit 25.2 % (36.0-45.0); Lymphocytes % 0.8 % (15.3-44.8); MPV 9.2 fL (7.6-11.3); RBC Red Blood Cell Count 2.69 M/uL (3.86-4.86)
[2020-04-29 13:33] LABS: Protime INR 1.16
[2020-04-29 13:53] LABS: ALT/SGPT 11 U/L (12-78); AST/SGOT 11 U/L (15-37); Alkaline Phosphatase 95 U/L (45-117); BUN Blood Urea Nitrogen 34 mg/dL (7-18); Bicarbonate 28 mmol/L (21-32); Bilirubin Direct 0.1 mg/dL (0-0.2); Bilirubin Total 0.4 mg/dL (0.2-1.0); Magnesium 1.8 mg/dL (1.8-2.4); NT PRO-BNP 21097 pg/mL (<125); Potassium 4.1 mmol/L (3.5-5.1); Protein, Total 5.8 g/dL (6.4-8.2); Sodium Level 134 mmol/L (136-145); Troponin (Emerg Dept Use Only) < 0.02 ng/mL (0.0-0.045)
[2020-04-29 13:57] LABS: Glucose Level 48 mg/dL (74-106)
--- NOTE | 2020-04-29 14:15 | ER ---
Nurse's Notes [facility] Name: Archana Woo Age: 44 yrs Sex: Female : 1975 Arrival Date: 04/29/2020 Time: 13:03 Bed 7 Private MD: Diagnosis: Hypoglycemia, unspecified;Hypotension;Type 2 diabetes mellitus;Sepsis, unspecified organism;End stage renal disease;Osteomyelitis Presentation: 04/29 13:21 Chief complaint: EMS states: Found unresponsive upon EMS arrival. Initial sugar 48, BP ll1 90/50. Oral glucose given, sugar up to 77 upon arrival to ED, in Trendelenburg. BP 100/50. Just released from our facility for toe amputation yesterday. Dialysis access L arm. Coronavirus screen: Client denies travel out of the [place] in the last 14 days. At this time, the client does not indicate any symptoms associated with coronavirus-19. Ebola Screen: Patient denies travel to an Ebola-affected area in the 21 days before illness onset. Initial Sepsis Screen: Does the patient meet any 2 criteria? Systolic BP < 90 mmHg. Altered Mental Status. Yes Does the patient have a suspected source of infection? No. Patient's initial sepsis screen is negative. Risk Assessment: Do you want to hurt yourself or someone else? Unable to obtain. Onset of symptoms was April 29, 2020. 13:21 Method Of Arrival: EMS ll1 13:21 Acuity: TARUN 2 ll1 [employer]ARM [employer]IC: 16:39 LMP N/A - control method ll1 Historical: - Allergies: 13:24 No Known Allergies; ll1 - PMHx: 13:24 BLIND; CVA; Diabetes - NIDDM; dialysis W \T\ F; GERD; Hyperlipidemia; Hypertension; ll1 Depression; neuropathy; left arm paralysis; THYROID CANCER; TIA; - Immunization history:: Flu vaccine status is unknown. - Social history:: Smoking status: Patient denies any tobacco usage or history of. Screenin:57 Abuse screen: Denies threats or abuse. Nutritional screening: No deficits noted. ll1 Tuberculosis screening: No symptoms or risk factors identified. Fall Risk None identified. IV access (20 points). Ambulatory Aid- Crutches/Cane/Walker (15 pts). Gait- Weak (10 pts.). Mental Status- Total Lr Fall Scale indicates High Risk Score (45 or more points). Fall prevention measures have been instituted. Side Rails Up X 2 1:1 Attendant Assigned Frequent Obs/Assessments Occuring As available patient and family educated on Fall Prevention Program and Strategies. Assessment: 12:35 General: Appears ill, unkempt, Behavior is unresponsive. Pain: Denies pain. Neuro: ll1 Level of Consciousness is lethargic, unresponsive, Oriented to responds to painful stimuli only. Pupils are PERRLA. Cardiovascular: Heart tones S1 S2 Capillary refill < 3 seconds Clubbing of nail beds is absent JVD is absent Patient's skin is warm and dry. Respiratory: Airway is patent Trachea midline Respiratory effort is even, unlabored, Respiratory pattern is regular, symmetrical, Breath sounds are clear bilaterally. GI: No deficits noted. 13:30 Reassessment: Patient and/or family updated on plan of care and expected duration. Pain ll1 level reassessed. Patient is alert, oriented x 3, equal unlabored respirations, skin warm/dry/pink. More alert. A\T\Ox 3, didn't know the date. Informed she is being admitted, verbalized understanding. 13:47 Reassessment: Point of Contact (sister): . ss 14:21 Reassessment: Patient and/or family updated on plan of care and expected duration. Pain ll1 level reassessed. Patient is alert, oriented x 3, equal unlabored respirations, skin warm/dry/pink. Patient states feeling better. 14:32 General: Appears ill, unkempt, Behavior is cooperative, drowsy. Pain: Denies pain. ll1 Neuro: Level of Consciousness is awake, alert, obeys commands, Oriented to person, place, situation. Respiratory: No deficits noted. 15:16 Reassessment: Patient and/or family updated on plan of care and expected duration. Pain ll1 level reassessed. Patient is alert, oriented x 3, equal unlabored respirations, skin warm/dry/pink. Patient states feeling better. 15:35 Reassessment: Awaiting admit orders for bed assignment. ss 16:37 Reassessment: Patient and/or family updated on plan of care and expected duration. Pain ll1 level reassessed. Patient is alert, oriented x 3, equal unlabored respirations, skin warm/dry/pink. To ICU bed 9. Vital Signs: 13:00 BP 83 / 45; Pulse 63; Resp 16; Temp 97.8(TE); ss 13:00 BP 83 / 45; Pulse 63; Resp 16; Temp 97.8; Pulse Ox 94% on R/A; Pain 0/10; ll1 13:16 BP 77 / 46; Pulse 58; Resp 18; Pulse Ox 100% on R/A; ss 13:36 BP 81 / 46; Pulse 61; Resp 14; ll1 13:39 Weight 60.33 kg (R); ll1 13:41 BP 85 / 50; Pulse 61; Resp 15; Pulse Ox 100% ; ll1 13:54 BP 88 / 52; Pulse 61; Resp 13; Pulse Ox 100% on 2 lpm NC; ll1 14:19 BP 97 / 56; Pulse 62; Resp 14; Pulse Ox 100% ; ll1 14:36 BP 102 / 58; Pulse 61; ll1 15:06 BP 108 / 57; Pulse 61; Resp 14; Pulse Ox 100% on 2 lpm NC; ll1 16:15 BP 122 / 64; Pulse 66; Resp 14; Pulse Ox 100% on 2 lpm NC; ll1 16:23 BP 126 / 61; Pulse 67; Resp 14; Pulse Ox 100% on 2 lpm NC; Pain 0/10; ll1 17:04 BP 116 / 66; Pulse 68; Resp 14; Pulse Ox 100% on 2 lpm NC; ll1 ED Course: 13:00 Arm band placed on right wrist. ss 13:03 Patient arrived in ED. ss 13:18 Zelalem Brenner MD is Attending Physician. davion 13:20 Inserted saline lock: 20 gauge in right forearm, using aseptic technique. Blood ll1 collected. 13:21 Kylie Feldman, ARMOND is Primary Nurse. ll1 13:24 Triage completed. ll1 13:25 Patient placed in an exam room, on a stretcher. ll1 13:25 Inserted saline lock: 18 gauge in left EJ, using aseptic technique. Blood collected. ll1 13:57 Patient has correct armband on for positive identification. Placed in gown. Bed in low ll1 position. Call light in reach. Side rails up X2. alarm security or surveillance monitor on. Pulse ox on. NIBP on. 14:12 Everett Chan MD is Hospitalizing Provider. davion 14:41 XRAY Chest (1 view) In Process Unspecified. EDMS 16:38 No provider procedures requiring assistance completed. Patient admitted, IV remains in ll1 place. Administered Medications: 13:10 Drug: D50W 50 ml Route: IVP; Site: left jugular; ll1 15:13 Follow up: Response: No adverse reaction; RASS: Drowsy (-1) ll1 13:15 Drug: NS 0.9% 1000 ml Route: IV; Rate: 75 ml/hr; Site: right forearm; ll1 16:40 Follow up: Response: No adverse reaction; IV Status: Infusion continued upon admission; ll1 IV Intake: 400ml 13:29 Drug: NS 0.9% 250 ml Route: IV; Rate: bolus; Site: right forearm; ll1 15:08 Follow up: Response: No adverse reaction; Blood pressure is elevated; IV Status: ll1 Completed infusion; IV Intake: 500ml 13:54 Drug: Cefepime 1 grams Route: IVPB; Rate: 200 ml/hr; Infused Over: 30 mins; Site: right ll1 forearm; 15:08 Follow up: Response: No adverse reaction; IV Status: Completed infusion; IV Intake: 24ulhe9 15:13 Drug: Pepcid 20 mg Route: IVP; Site: left jugular; ll1 15:49 Follow up: Response: No adverse reaction; RASS: Drowsy (-1) ll1 Intake: 15:08 IV: 50ml; Total: 50ml. ll1 15:08 IV: 500ml; Total: 550ml. ll1 16:40 IV: 400ml; Total: 950ml. ll1 Outcome: 14:14 Decision to Hospitalize by Provider. davion 16:39 Admitted to ICU accompanied by nurse, via stretcher, room ICU 9, with oxygen, on ll1 monitor, with chart, Report called to Jeanine ICU nurse 16:39 Condition: stable 16:39 Instructed on the need for admit. 17:04 Patient left the ED. 1 Signatures: Dispatcher [employer] EDMS Zelalem Brenner MD MD cha Smirch, Shelby, Kylie Talbert RN, RN RN 1
--- NOTE | 2020-04-29 14:15 | EDPHYS ---
Physician Documentation [facility] Name: Archana Woo Age: 44 yrs Sex: Female : 1975 Arrival Date: 04/29/2020 Time: 13:03 Bed 7 Private MD: ED Physician Zelalem Brenner HPI: 04/29 13:57 This 44 yrs old Female presents to ER via EMS with complaints of Low Blood davion Sugar, Low blood pressure. 13:57 The patient or guardian reports hypoglycemia. Onset: The symptoms/episode davion began/occurred just prior to arrival, this morning. Associated signs and symptoms: Pertinent positives: anorexia, Current symptoms: In the emergency department the patient's symptoms are unchanged from the initial presentation. The patient has experienced similar episodes in the past, a few times. DIRECTOR OF GRADUATE ADMISSIONS: 16:39 LMP N/A - control method ll1 Historical: - Allergies: 13:24 No Known Allergies; ll1 - PMHx: 13:24 BLIND; CVA; Diabetes - NIDDM; dialysis W \T\ F; GERD; Hyperlipidemia; Hypertension; ll1 Depression; neuropathy; left arm paralysis; THYROID CANCER; TIA; - Immunization history:: Flu vaccine status is unknown. - Social history:: Smoking status: Patient denies any tobacco usage or history of. ROS: 13:58 Constitutional: Positive for fatigue, low blood pressure. davion 13:58 Skin: Positive for pallor. 13:58 Neuro: Positive for altered mental status, near syncope. 13:58 Unable to obtain ROS due to comatose state. Exam: 13:58 Head/Face: Normocephalic, atraumatic. Eyes: Pupils equal round and reactive to light, davion extra-ocular motions intact. Lids and lashes normal. Conjunctiva and sclera are non-icteric and not injected. Cornea within normal limits. Periorbital areas with no swelling, redness, or edema. Chest/axilla: Normal chest wall appearance and motion. Nontender with no deformity. No lesions are appreciated. Cardiovascular: Regular rate and rhythm with a normal S1 and S2. No gallops, murmurs, or rubs. Normal PMI, no JVD. No pulse deficits. Respiratory: Lungs have equal breath sounds bilaterally, clear to auscultation and percussion. No rales, rhonchi or wheezes noted. No increased work of breathing, no retractions or nasal flaring. Back: No spinal tenderness. No costovertebral tenderness. Full range of motion. 13:58 Cardiovascular: Rate: normal, Rhythm: regular, Pulses: Pulses are 3+ in bilateral radial, brachial, femoral, popliteal, posterior tibial and and dorsalis pedis arteries.. Heart sounds: normal, Edema: is not appreciated, JVD: is noted bilaterally, to 2 cm. 13:58 Neuro: Orientation: to person, Mentation: slow to respond, confused, Memory: unable to test, Cranial nerves: no acute changes, Cerebellar function: unable to test, Motor: moves all fours, Sensation: no obvious gross deficits, no acute changes, Gait: not tested. Babinski testing is normal, seizure activity, is not displayed by the patient. 14:21 ECG was reviewed by the Attending Physician. davion Vital Signs: 13:00 BP 83 / 45; Pulse 63; Resp 16; Temp 97.8(TE); ss 13:00 BP 83 / 45; Pulse 63; Resp 16; Temp 97.8; Pulse Ox 94% on R/A; Pain 0/10; ll1 13:16 BP 77 / 46; Pulse 58; Resp 18; Pulse Ox 100% on R/A; ss 13:36 BP 81 / 46; Pulse 61; Resp 14; ll1 13:39 Weight 60.33 kg (R); ll1 13:41 BP 85 / 50; Pulse 61; Resp 15; Pulse Ox 100% ; ll1 13:54 BP 88 / 52; Pulse 61; Resp 13; Pulse Ox 100% on 2 lpm NC; ll1 14:19 BP 97 / 56; Pulse 62; Resp 14; Pulse Ox 100% ; ll1 14:36 BP 102 / 58; Pulse 61; ll1 15:06 BP 108 / 57; Pulse 61; Resp 14; Pulse Ox 100% on 2 lpm NC; ll1 16:15 BP 122 / 64; Pulse 66; Resp 14; Pulse Ox 100% on 2 lpm NC; ll1 16:23 BP 126 / 61; Pulse 67; Resp 14; Pulse Ox 100% on 2 lpm NC; Pain 0/10; ll1 17:04 BP 116 / 66; Pulse 68; Resp 14; Pulse Ox 100% on 2 lpm NC; ll1 Procedures: 14:25 Peripheral line: by aseptic technique a peripheral line was placed in the left external davion jugular vein. MDM: 13:18 Patient medically screened. [facility] 14:09 Differential diagnosis: Franco's syndrome, DKA, hypoglycemic episode, hypothyroidism. davion Differential Diagnosis altered mental status, sepsis. Differential Diagnosis: electrolyte abnormality, hypoglycemia, pneumonia, sepsis, UTI, volume depletion. Data reviewed: vital signs, nurses notes, EMS record, lab test result(s), EKG, radiologic studies. 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 Test interpretation: by ED physician or midlevel provider: ECG, plain radiologic studies. Counseling: I had a detailed discussion with the patient and/or guardian regarding: the historical points, exam findings, and any diagnostic results supporting the discharge/admit diagnosis, lab results, radiology results, the need for further work-up and treatment in the hospital. ED course: dw dr corrigan, hypoglycemia and hypotension, sp left great toe amputation. 04/29 13:16 Order name: Basic Metabolic Panel 04/29 13:16 Order name: CBC with Diff 04/29 13:16 Order name: LFT's 04/29 13:16 Order name: Magnesium; Complete Time: 14:06 04/29 13:16 Order name: NT PRO-BNP; Complete Time: 14:06 04/29 13:16 Order name: PT-INR; Complete Time: 14:06 04/29 13:16 Order name: Troponin (emerg Dept Use Only); Complete Time: 14:06 04/29 13:16 Order name: Blood Culture Adult (2) 04/29 13:16 Order name: Lactate; Complete Time: 14:06 04/29 13:16 Order name: Basic Metabolic Panel; Complete Time: 14:06 EDMS 04/29 13:16 Order name: CBC with Automated Diff EDMS 04/29 13:16 Order name: Liver (Hepatic) Function; Complete Time: 14:06 EDMS 04/29 13:24 Order name: Glucose, Ancillary Testing; Complete Time: 14:06 EDMS 04/29 13:25 Order name: Procalcitonin [facility] 04/29 13:37 Order name: Manual Differential EDCA 04/29 13:51 Order name: Glucose, Ancillary Testing; Complete Time: 14:06 EDMS 04/29 14:03 Order name: Vancomycin Level Trough EDMS 04/29 14:08 Order name: Type And Screen davion 04/29 14:14 Order name: Glucose, Ancillary Testing EDMS 04/29 15:14 Order name: Glucose, Ancillary Testing EDMS 04/29 16:20 Order name: CBC with Automated Diff EDMS 04/29 13:13 Order name: Cardiac monitoring; Complete Time: 15:07 ll1 04/29 13:13 Order name: EKG - Nurse/Tech; Complete Time: 15:07 ll1 04/29 13:13 Order name: IV Saline Lock; Complete Time: 15:07 ll1 04/29 13:16 Order name: XRAY Chest (1 view) ss 04/29 13:16 Order name: EKG; Complete Time: 13:17 ss 04/29 16:20 Order name: CONS Physician Consult EDMS 04/29 16:20 Order name: CONS Physician Consult EDMS 04/29 16:20 Order name: Physical Therapy Consult EDMS 04/29 16:20 Order name: Renal EDMS 04/29 16:20 Order name: CBC with Automated Diff EDMS 04/29 16:20 Order name: Comprehensive Metabolic Panel EDMS 04/29 16:20 Order name: Comprehensive Metabolic Panel EDMS 04/29 16:20 Order name: Lactate EDMS 04/29 16:20 Order name: Lactate EDMS 04/29 16:20 Order name: Magnesium EDMS 04/29 16:20 Order name: Magnesium EDMS 04/29 16:20 Order name: NT PRO-BNP EDMS 04/29 16:20 Order name: NT PRO-BNP EDMS 04/29 16:20 Order name: Phosphorus EDMS 04/29 16:20 Order name: Phosphorus EDMS 04/29 16:20 Order name: Troponin I EDMS 04/29 16:20 Order name: Troponin I EDMS 04/29 16:20 Order name: Lactate EDMS 04/29 16:21 Order name: CONS Pharmacy Consult EDMS 04/29 13:13 Order name: Labs collected and sent; Complete Time: 15:07 ll1 04/29 13:13 Order name: O2 Per Protocol; Complete Time: 15:07 ll1 04/29 13:13 Order name: O2 Sat Monitoring; Complete Time: 15:07 ll1 EC:21 Rate is 61 beats/min. Rhythm is regular. QRS [place] is Normal. CO interval is normal. QRS davion interval is normal. QT interval is prolonged. No Q waves. T waves are Normal. No ST changes noted. Clinical impression: NSR w/ Non-specific ST/T Changes and No evidence of ischemia. Interpreted by me. Reviewed by me. Administered Medications: 13:10 Drug: D50W 50 ml Route: IVP; Site: left jugular; ll1 15:13 Follow up: Response: No adverse reaction; RASS: Drowsy (-1) ll1 13:15 Drug: NS 0.9% 1000 ml Route: IV; Rate: 75 ml/hr; Site: right forearm; ll1 16:40 Follow up: Response: No adverse reaction; IV Status: Infusion continued upon admission; ll1 IV Intake: 400ml 13:29 Drug: NS 0.9% 250 ml Route: IV; Rate: bolus; Site: right forearm; ll1 15:08 Follow up: Response: No adverse reaction; Blood pressure is elevated; IV Status: ll1 Completed infusion; IV Intake: 500ml 13:54 Drug: Cefepime 1 grams Route: IVPB; Rate: 200 ml/hr; Infused Over: 30 mins; Site: right ll1 forearm; 15:08 Follow up: Response: No adverse reaction; IV Status: Completed infusion; IV Intake: [id number] 15:13 Drug: Pepcid 20 mg Route: IVP; Site: left jugular; ll1 15:49 Follow up: Response: No adverse reaction; RASS: Drowsy (-1) ll1 Disposition: 04/29/20 14:14 Hospitalization ordered by vEerett Corrigan for Inpatient Admission. Preliminary diagnosis are Hypoglycemia, unspecified, Hypotension, Type 2 diabetes mellitus, Sepsis, unspecified organism, End stage renal disease, Osteomyelitis. - Bed requested for Intensive Care Unit. - Status is Inpatient Admission. ll1 - Condition is Serious. - Problem is new. - Symptoms have improved. Signatures: Dispatcher [employer] EDMS Zelalem Brenner MD MD cha Lewis, Lynsay RN RN ll1 Corrections: (The following items were deleted from the chart) 15:14 14:08 Central Line Kit ordered. davion ham 17:04 14:14 Hospitalization Ordered by Everett Corrigan MD for Inpatient Admission. Preliminary ll1 diagnosis is Hypoglycemia, unspecified; Hypotension; Type 2 diabetes mellitus; Sepsis, unspecified organism; End stage renal disease; Osteomyelitis. Bed requested for Intensive Care Unit. Status is Inpatient Admission. Condition is Serious. Problem is new. Symptoms have improved. davion
[2020-04-29 14:41] LABS: Blood Morphology Comment NOT SEEN (NOT SEEN); Platelet Estimate ADEQ
--- NOTE | 2020-04-29 14:50 | RAD REPORT ---
EXAM DESCRIPTION: RAD - Chest Single View - 04/29/2020 2:41 pm CLINICAL HISTORY: CHEST PAIN Chest pain. COMPARISON: Chest Single View dated 03/12/2020; Abdomen Acute Series dated 02/20/2020; Abdomen 1 View ( KUB) dated 02/17/2020; Chest Single View dated 02/08/2020 FINDINGS: Portable technique limits examination quality. The lungs are underinflated resulting in vascular prominence. The heart is normal in size. No displac ed fractures.
[2020-04-29] MEDS ORDERED: FAMOTIDINE 20 MG/2 ML VIAL IV ONE (15:22)
--- NOTE | 2020-04-29 16:12 | P.HP ---
Certification for Inpatient Patient admitted to: Inpatient With expected LOS: >2 Midnights Patient will require the following post-hospital care: None Practitioner: I am a practitioner with admitting privileges, knowledge of patient current condition, hospital course, and medical plan of care. Services: Services provided to patient in accordance with Admission requirements found in Title 42 Section 412.3 of the Code of Federal Regulations Patient History Date of Service: 04/29/20 Reason for admission: Hypoglycemia/hypotension History of Present Illness: Patient is a 44-year-old female who has history of end-stage renal disease, diabetes with numerous complications including retinopathy, nephropathy, and neuropathy who presents to the emergency room today with hypoglycemic and hypotensive. She recently had amputation of her right great toe secondary to osteomyelitis. She has been on IV antibiotics in the hospital but according to the family she was discharged on oral clindamycin. She was out of the hospital for about 24 hr but since she left she has been really obtunded. They really have not been able to wake her up and interact appropriately. They state that when she left the hospital a she was ataxic and really wobbly. Uncertain as if that was related to the foot or some other underlying medical problem. Patient got home yesterday and was hypoglycemic in the 40s. This morning she was this & weigh so the family called the EMS. She normally sees nurse practitioner Britta Grey. Patient also sees [facility] for hemodialysis and she receives dialysis on Thursday, Thursday, and Thursday. She will be admitted to the ICU for gentle hydration, as well as IV antibiotic therapy. Will monitor blood sugars closely as well. If patient does well in the ICU then hopefully we can step her down to the general medical floor in a.m.. Allergies No Known Allergies Allergy (Verified 04/11/19 22:08) Home Medications: Aspirin 81 mg PO DAILY 12/23/19 Gabapentin 100 mg PO BID 12/23/19 Metoclopramide HCl [Reglan] 10 mg PO DAILY 12/23/19 Sertraline [Zoloft*] 100 mg PO DAILY 12/23/19 Sevelamer Carbonate [Renvela*] 2,400 mg PO TIDWM #90 tablet 12/24/19 Clopidogrel Bisulfate [Plavix*] 75 mg PO DAILY #30 tablet 12/26/19 Docusate [Colace Cap*] 100 mg PO DAILY PRN #30 cap 12/26/19 Folic Acid 1 mg PO DAILY #30 tablet 12/26/19 Atorvastatin Calcium [Lipitor] 20 mg PO BEDTIME 02/09/20 Insulin Glargine,Hum.rec.anlog [Toujeo Max Solostar] 25 unit SQ DAILY 02/09/20 carvediloL [Coreg*] 6.25 mg PO BID 02/09/20 Nepro Shake [Nepro*] 250 ml PO BID #60 can 02/13/20 Epoetin [Retacrit] 10,000 unit IV EVERY HD vial 04/28/20 Insulin Lispro [Humalog] 5 unit SQ TIDWM #10 ml 04/28/20 L. Acidophilus/L.bulgaricus [Lactobacillus Tablet] 1 each PO TID #90 tablet 04/28/20 Tramadol HCl [Ultram] 50 mg PO Q6H PRN #30 tablet 04/28/20 clindamycin HCL [Clindamycin HCl] 300 mg PO TID #42 capsule 04/28/20 - Past Medical/Surgical History Diabetic: Yes -: Legally blind, diabetic retinopathy -: Hypertension -: Depression with anxiety -: History of thyroid cancer -: Hyperlipidemia -: Tobacco abuse -: GERD -: Diabetic retinopathy and nephropathy -: ESRD -: hyperlipidemia -: CVA x3 -: Cholecystectomy -: Thyroidectomy -: Multiple eye surgeries -: -: HD graph left arm Psychosocial/ Personal History: The patient is . She has 1 child. She is disabled. - Family History Father Medical History: Heart disease, Hypertension, Other (see notes) Notes: thyroid problems Mother Medical History: Diabetes, Kidney disease - Social History Smoking Status: Never smoker Alcohol use: No CD- Drugs: No Caffeine use: No Review of Systems 10-point ROS is otherwise unremarkable Physical Examination - Vital Signs Temperature: 99.9 F Blood Pressure: 90/50 Pulse: 120 Respirations: 18 Pulse Ox (%): 95 - Physical Exam General: Moderate distress, Confused, Other (Incoherent) HEENT: Atraumatic, Other (Patient is blind in both eyes), Sclerae nonicteric Neck: Supple, 2+ carotid pulse no bruit, No LAD, Without JVD or thyroid abnormality Respiratory: Clear to auscultation bilaterally, Normal air movement Cardiovascular: Regular rate/rhythm, Normal S1 S2, Systolic murmur Gastrointestinal: Normal bowel sounds, Soft and benign, Non-distended, No tenderness Musculoskeletal: No clubbing, No swelling, No tenderness Integumentary: No rashes Neurological: Sensation intact, Cranial nerves 3-12 intact, Normal affect, Abnormal gait, Abnormal strength Lymphatics: No axilla or inguinal lymphadenopathy - Studies Laboratory Data (last 24 hrs) 04/29/20 13:15: PT 13.7 H, INR 1.16 04/29/20 13:15: WBC 31.8 H* D, Hgb 8.2 L, Hct 25.2 L, Plt Count 265 04/29/20 13:15: Sodium 134 L, Potassium 4.1, BUN 34 H, Creatinine 5.80 H* D, Glucose 48 L*, Magnesium 1.8, Total Bilirubin 0.4, AST 11 L, ALT 11 L, Alkaline Phosphatase 95 Assessment & Plan - Problems (Diagnosis) (1) Hypoglycemia Current Visit: Yes Status: Acute (2) Sepsis Current Visit: Yes Status: Acute (3) Leukocytosis Current Visit: Yes Status: Acute (4) Altered mental status Current Visit: Yes Status: Acute (5) Status post amputation of right great toe Current Visit: Yes Status: Acute (6) Diabetic retinopathy Current Visit: Yes Status: Acute (7) Blind in both eyes Current Visit: Yes Status: Acute (8) Diabetic neuropathy Current Visit: Yes Status: Acute (9) ESRD (end stage renal disease) Current Visit: No Status: Acute (10) History of CVA (cerebrovascular accident) Current Visit: No Status: Acute (11) Osteomyelitis of toe of right foot Current Visit: No Status: Acute (12) Depression with anxiety Onset Date: 03/03/17 Current Visit: No Status: Chronic (13) Diabetes mellitus Onset Date: 03/03/17 Current Visit: No Status: Chronic (14) Diabetic gastroparesis Onset Date: 09/02/17 Current Visit: No Status: Chronic (15) Hypertension Onset Date: 03/03/17 Current Visit: No Status: Chronic Qualifiers: - Plan Plan: 1. IV antibiotic therapy 2. Gentle hydration as patient is ESRD 3. Nephrology consultation for hemodialysis 4. Accu-Cheks q.1 hr and will increase to q.4 hr if her blood sugars stayed over 100 x 2; 5. Significant leukocytosis so will continue with IV antibiotic therapy 6. Monitor hemodynamics closely in ICU 7. GI and DVT prophylaxis Discharge Plan: LTAC Plan to discharge in: Greater than 2 days - Advance Directives Does patient have a Living Will: No Does patient have a Durable POA for Healthcare: Yes - Code Status/Comfort Care Code Status Assessed: Yes Code Status: Full Code Critical Care: Yes Time Spent Managing PTS Care (In Minutes): 45
[2020-04-29] MEDS ORDERED: ONDANSETRON 4 MG/2 ML VIAL IV PRN (16:14)
[2020-04-29] MEDS ORDERED: VANCOMYCIN/NS 1 gm 1 GM/250 ML BAG IVPB SCH (16:30)
[2020-04-29] MEDS ORDERED: NA CHLORIDE 0.9% 1,000 ML IV SCH (17:00)
[2020-04-29] MEDS ORDERED: D5 0.9 NS 1,000 ML IV SCH (17:00)
[2020-04-29] MEDS: PIPER/TAZO/NS 2.25gm 2.25 GM/50 ML BAG IVPB SCH (18:03)
[2020-04-29] MEDS ORDERED: D5 0.9 NS 1,000 ML IV ONE (18:14)
[2020-04-29] MEDS: HEPARIN 5000 UNIT/ML 1 ML VIAL SQ SCH (21:00)
[2020-04-29] MEDS ORDERED: GLUCAGON 1 MG/VIAL IM PRN (21:48)
[2020-04-29] MEDS ORDERED: D50W 25 GM/50 ML SYRINGE/VIAL IV PRN (21:48)
[2020-04-29] MEDS: INSULIN -REGULAR HUMAN 50 UNIT/0.5 ML ML SQ SCH (22:10)
[2020-04-30] MEDS: PIPER/TAZO/NS 2.25gm 2.25 GM/50 ML BAG IVPB SCH ×3 (00:50→17:00)
[2020-04-30] MEDS: INSULIN -REGULAR HUMAN 50 UNIT/0.5 ML ML SQ SCH ×6 (00:58→20:23)
[2020-04-30] MEDS ORDERED: INSULIN -REGULAR HUMAN 50 UNIT/0.5 ML ML SQ SCH (01:00)
[2020-04-30 05:50] LABS: Basophils % 0.1 % (0-1.3); Hematocrit 25.5 % (36.0-45.0); Lymphocytes % 3.7 % (15.3-44.8); MPV 9.4 fL (7.6-11.3); RBC Red Blood Cell Count 2.72 M/uL (3.86-4.86)
[2020-04-30 06:24] LABS: ALT/SGPT 10 U/L (12-78); AST/SGOT 5 U/L (15-37); Alkaline Phosphatase 90 U/L (45-117); BUN Blood Urea Nitrogen 39 mg/dL (7-18); Bicarbonate 27 mmol/L (21-32); Bilirubin Total 0.5 mg/dL (0.2-1.0); Glucose Level 172 mg/dL (74-106); Magnesium 1.8 mg/dL (1.8-2.4); NT PRO-BNP 17490 pg/mL (<125); Phosphorus 5.7 mg/dL (2.5-4.9); Potassium 4.5 mmol/L (3.5-5.1); Protein, Total 5.9 g/dL (6.4-8.2); Sodium Level 133 mmol/L (136-145); Troponin I < 0.02 ng/mL (0.0-0.045)
[2020-04-30] MEDS: HEPARIN 5000 UNIT/ML 1 ML VIAL SQ SCH ×2 (10:02→20:24)
[2020-04-30] MEDS ORDERED: HEPARIN 5000 UNIT/ML 1 ML VIAL ONE (10:04)
--- NOTE | 2020-04-30 16:08 | CON ---
Date of Consultation: 04/29/2020 Chief Complaint: Hypotension, hypoglycemia. History Of Present Illness: The patient is a 44-year-old woman with end-stage renal disease, who is dialyzing on Thursday, Thursday, Thursday. Last dialysis was done during previous hospitalization in [facility]. The patient was subsequently discharged home and today she is admitted for possible seps is. There is a hypoglycemia and hypotension. The patient had amputation done of her right great toe secondary to osteomyelitis. She has been on IV antibiotics and was discharged on clindamycin. She came to the hospital because she was found to have severe hypoglycemia and blood glucose is gradu ally improving. The patient was dialyzed on Thursday. She has a history of end-stage renal disease due to diabetes and she has been dialyzed 3 times per week on Thursday, Thursday, Thursday. Review of Systems: Unobtainable. The patient is lethargic. Past Medical History: Diabetic retinopathy. The patient is legally blind. Hypertension, depression , anxiety. History of thyroid cancer, hyperlipidemia, tobacco abuser, diabetic retinopathy, nephropa thy, hyperlipidemia, CVA x3, cholecystectomy, thyroidectomy, multiple eye surgeries, . Family History: Father with heart disease, hypertension, thyroid problems. Mother, no heart disease , no kidney disease. Physical Examination: Vital Signs: Blood pressure , heart rate is 120, temperature 99.9, pulse oximeter 95%. Eyes: Anicteric sclerae, EOMI. Patient is legally blind. Ears, Nose, Mouth, and throat: Oral mucosa moist. No pallor. Neck: Supple, no bruits. Lungs: Clear to auscultation bilaterally. Heart: S1, S2. No pericardial friction or rub. Abdomen: Soft, benign, nontender. Extremities: No edema. Laboratory Data: WBC 31.8, hemoglobin 8.2, platelet count 265,000, absolute neutrophil 30.8. Chemis try show sodium 134, potassium 4.1, chloride 95, CO2 28, BUN 34, creatinine 5.8, magnesium 1.8, calci um 7.2, albumin 2.0. Impression And Plan: 1.End-stage renal disease. Dialysis is tomorrow. Adjust electrolytes with dialysis as needed accor ding to blood work. 2.Diabetes mellitus with manifestation. 3.Hypoalbuminemia. The patient has underlying history of proteinuria and advance protein intake. M onitor albumin. 4.Hypertension. Blood pressure medication is on hold due to hypotension and workup is pending to ru le out bacteremia and sepsis. TAMIKA/KERI Voice ID: [id number] Report ID: [id number]
--- NOTE | 2020-04-30 16:22 | P.PN ---
Subjective Date of Service: 04/30/20 Chief Complaint: Hypoglycemia/hypotension Patient seen and examined. Her blood sugar readings have improved. She currently has no complain. Leukocytosis has trended down. Blood pressure is stable. Physical Examination - Vital Signs Temperature: 98.5 F Blood Pressure: 103/49 Pulse: 71 Respirations: 16 Pulse Ox (%): 100 - Physical Exam General: Alert, In no apparent distress HEENT: Mucous membr. moist/pink Neck: Supple, JVD not distended Respiratory: Clear to auscultation bilaterally, Normal air movement Cardiovascular: No edema, Regular rate/rhythm, Normal S1 S2 Gastrointestinal: Normal bowel sounds, Soft and benign, Non-distended, No tenderness Musculoskeletal: Other (Right big toe ampution. Sutured amputation will looks clean, no surrounding erythema, no pus expressed out.) Neurological: Other (She moves all extremities.) Assessment And Plan - Current Problems (Diagnosis) (1) Diabetes mellitus type 2 in nonobese Current Visit: Yes Status: Acute (2) Hypoglycemia Current Visit: Yes Status: Acute (3) Sepsis Current Visit: Yes Status: Acute (4) Status post amputation of right great toe Current Visit: Yes Status: Acute (5) End-stage renal disease on hemodialysis Current Visit: No Status: Acute (6) History of CVA (cerebrovascular accident) Current Visit: No Status: Acute (7) Septic shock Current Visit: Yes Status: Acute - Plan Continue IV Zosyn and vancomycin. ID consult is pending. Lantus insulin is on hold given hypoglycemia. Blood sugar management with insulin sliding scale. Wound care Monitor WBC Blood cultures: No growth to date. Follow blood cultures. Disposition pending infectious disease input.
[2020-04-30] MEDS: SEVELAMER CARBONATE 800 MG TABLET PO SCH (17:00)
[2020-04-30] MEDS: ATORVASTATIN 20 MG TAB PO SCH (20:23)
[2020-04-30] MEDS: DOCUSATE NA 100 MG CAP PO PRN (20:23)
[2020-04-30] MEDS: GABAPENTIN 100 MG CAP PO SCH (20:23)
[2020-04-30] MEDS: NEPRO SHAKE 237 ML CAN PO SCH (20:24)
[2020-05-01] MEDS: PIPER/TAZO/NS 2.25gm 2.25 GM/50 ML BAG IVPB SCH ×4 (01:00→17:11)
[2020-05-01] MEDS ORDERED: PIPERACIL/TAZO 4.5 GM VIAL IV ONE ×2 (01:46)
[2020-05-01] MEDS ORDERED: NA CHLORIDE 0.9% 100 ML ONE (01:48)
[2020-05-01] MEDS: INSULIN -REGULAR HUMAN 50 UNIT/0.5 ML ML SQ SCH ×6 (03:36→21:05)
--- NOTE | 2020-05-01 04:29 | PN ---
Date of Progress Note: 04/30/2020 Chief Complaint: Hypotension, hypoglycemia. Subjective: The patient has history of end-stage renal disease. She is a 44-year-old woman with his tory of multiple medical problems including history of diabetic neuropathy, nephropathy, retinopathy. She is legally blind. She was admitted to the hospital because of possible sepsis. She was found to have severe leukocytosis. Review of Systems: Denies PND or orthopnea. Physical Examination: Lungs: Diminished breath sounds at bases., Heart: S1, S2. Abdomen: Soft, benign. Extremities: Some edema present. Laboratory Data: WBC 26.9, hemoglobin 8.4, platelet count is 254,000. Sodium 133, potassium 4.5, cr eatinine 6.15, BUN 39, carbon dioxide 27, calcium 7.2, phosphorus 5.7, albumin is 2.0. Impression And Plan: 1.End-stage renal disease. Dialysis is ordered for metabolic clearance and ultrafiltration will be done to control volemia. 2.Renal osteodystrophy. Continue renal diet and binders. 3.Hypoalbuminemia. Increase p.o. protein intake. 4.Fluid overload. Dialysis will be done to control fluid overload and prevent congestive heart fail ure. 5.Hyponatremia, dilutional, due to volume overload. Ultrafiltration will be done with dialysis. EB/MODL Voice ID: [id number] Report ID: [id number]
[2020-05-01] MEDS ORDERED: LACTULOSE 20 GM/30 ML UCUP PO ONE (05:30)
[2020-05-01 06:04] LABS: Absolute Lymphocytes (CBC) 2.1 K/uL (0.7-4.9); Basophils % 0.7 % (0-1.3); Hematocrit 22.6 % (36.0-45.0); Lymphocytes % 11.7 % (15.3-44.8); MPV 9.2 fL (7.6-11.3)
[2020-05-01 06:25] LABS: Albumin 1.7 g/dL (3.4-5.0); Phosphorus 6.5 mg/dL (2.5-4.9); Potassium 4.8 mmol/L (3.5-5.1)
[2020-05-01] MEDS: SEVELAMER CARBONATE 800 MG TABLET PO SCH ×3 (08:00→17:00)
[2020-05-01] MEDS ORDERED: HOME MED 1 EA UNK (Metoclopramide Hcl [Reglan] 10 MG) PO SCH (09:00)
[2020-05-01] MEDS: NEPRO SHAKE 237 ML CAN PO SCH ×2 (09:00→21:00)
[2020-05-01] MEDS: HEPARIN 5000 UNIT/ML 1 ML VIAL SQ SCH (09:00)
[2020-05-01] MEDS: FOLIC ACID 1 MG TABLET PO SCH (09:36)
[2020-05-01] MEDS: ASPIRIN 81 MG CHEWABLE TABLET PO SCH (09:36)
[2020-05-01] MEDS: METOCLOPRAMIDE 5 MG TAB PO SCH (09:37)
[2020-05-01] MEDS: GABAPENTIN 100 MG CAP PO SCH ×2 (09:37→21:05)
[2020-05-01] MEDS: SERTRALINE HCL 100 MG TAB PO SCH (09:37)
[2020-05-01] MEDS: CLOPIDOGREL 75 MG TABLET PO SCH (09:37)
[2020-05-01] MEDS: EPOETIN ALFA 10,000 UNIT/ML VIAL IV SCH (10:41)
--- NOTE | 2020-05-01 11:32 | P.PN ---
Subjective Date of Service: 05/01/20 Chief Complaint: Hypoglycemia/hypotension Subjective: No new changes (feeling somewhat better, reporting some continue abdominal discomfort/cramping, states hasn't had a BM in ~5 days) Physical Examination - Vital Signs Temperature: 97.5 F Blood Pressure: 115/56 Pulse: 69 Respirations: 18 Pulse Ox (%): 100 - Physical Exam General: Alert, In no apparent distress HEENT: Sclerae nonicteric Neck: Supple Respiratory: Clear to auscultation bilaterally, Normal air movement Cardiovascular: Regular rate/rhythm Gastrointestinal: Soft and benign, Non-distended, Tenderness (mild, periumbilical) Integumentary: Other (Right 1st toe amputation site: Clean, no surrounding erythema, no purulent drainage) Assessment & Plan Physician Review Additional Text: Sepsis, unclear source Hypoglycemia s/p R 1st toe amputation Hyponatremia DM2 with retinopathy HTN ESRD on hemodialysis History of CVA (residual left-sided weakness) Leukocytosis Sepsis of unknown origin -significant leukocytosis (31.8k) on admission, downtrending, no diarrhea - unlikely to be c.diff -continue IV zosyn & vanc -follow blood cultures, so far no growth -will check CRP, procalcitonin -ID consulted Hypoglycemia DM2 with retinopathy -home meds: Tujeo 25units at night, and 12-15units humalog with meals - per sister -holding home meds in setting of hypoglycemia -insulin sliding scale ordered, adjust as needed s/p R 1st toe amputation -wound care HTN -IV PRN for now, confirm home meds ESRD on hemodialysis -nephrology consulted, for dialysis today History of CVA (residual left-sided weakness) -continue home ASA & Plavix Time Spent Managing Pts Care (In Minutes): 35
[2020-05-01] MEDS: VANCOMYCIN 500 MG in NA CHLORIDE 0.9% 100 ML IVPB SCH (11:42)
[2020-05-01] MEDS ORDERED: NA CHLORIDE 0.9% 250 ML ONE (11:56)
--- NOTE | 2020-05-01 14:15 | P.CNS ---
Date of Consult: 05/01/20 Subjective: Patient is a 44-year-old female with history of end-stage renal disease on hemodialysis, CVA with left-sided weakness, diabetes mellitus who presents from home with hypoglycemia. She was recently admitted for right great toe wound/osteomyelitis s/p amputation and was discharged with oral Clindamycin. Patient did not start her prescription due to readmission one day after she discharged home. I was consulted for right foot great toe surgical site s/p amputation from osteomyelitis. - Past Medical/Surgical History Diabetic: Yes -: Legally blind, diabetic retinopathy -: Hypertension -: Depression with anxiety -: History of thyroid cancer -: Hyperlipidemia -: Tobacco abuse -: GERD -: Diabetic retinopathy and nephropathy -: ESRD -: hyperlipidemia -: CVA x3 -: Cholecystectomy -: Thyroidectomy -: Multiple eye surgeries -: -: HD graph left arm Psychosocial/ Personal History: The patient is . She has 1 child. She is disabled. - Family History Father -: Heart disease, Hypertension, Other (see notes) Notes: thyroid problems Mother -: Diabetes, Kidney disease - Social History Alcohol use: No CD- Drugs: No Caffeine use: No Tobacco: Smokes 1 cigarette daily Allergies No Known Allergies Allergy (Verified 04/11/19 22:08) Active Medications Carvedilol (Coreg) 6.25 mg PO BIDWM NATALIE Stop: 05/23/20 18:01 Last Admin: 04/23/20 17:42 Dose: 6.25 mg Documented by: Dextrose (Dextrose 50% Syringe/Vial) 12.5 gm IV PRN PRN PRN Reason: HYPOGLYCEMIA Stop: 05/23/20 21:53 Enteral Nutritional Formula (Nepro Shake) 250 ml PO BID NATALIE Stop: 05/23/20 21:01 Last Admin: 04/23/20 20:06 Dose: Not Given Documented by: Epoetin J Luis (Retacrit) 4,000 unit IV EVERY HD NATALIE Stop: 05/23/20 11:01 Gabapentin (Neurontin) 100 mg PO BID NATALIE Stop: 05/23/20 21:01 Last Admin: 04/23/20 20:24 Dose: 100 mg Documented by: Glucagon (Glucagen) 1 mg IM 1X PRN PRN Reason: HYPOGLYCEMIA Stop: 05/23/20 21:53 Heparin Sodium (Porcine) (Heparin 5,000 Units/Ml) 5,000 unit SQ Q8HR NATALIE Stop: 05/24/20 01:01 Last Admin: 04/23/20 22:17 Dose: Not Given Documented by: Hydralazine HCl (Apresoline) 10 mg IV Q6HP PRN PRN Reason: FOR SBP>160 OR DBP>100 MMHG Stop: 05/23/20 14:58 Last Admin: 04/23/20 15:09 Dose: 10 mg Documented by: Hydromorphone HCl (Dilaudid) 1 mg IV Q6H PRN PRN Reason: Pain scale 5-7 (Moderate) Stop: 05/23/20 14:04 Last Admin: 04/23/20 22:51 Dose: 1 mg Documented by: Hydromorphone HCl (Dilaudid) 1 mg IV Q4H PRN PRN Reason: Pain scale 8-10 (Severe) Stop: 05/24/20 02:34 Last Admin: 04/24/20 02:41 Dose: 1 mg Documented by: Vancomycin HCl 1.25 gm/ Sodium (Chloride) 250 mls @ 150 mls/hr IVPB Q48H [facility]; Protocol Stop: 05/25/20 16:01 Cefepime HCl (Maxipime 1 Gm/10 Ml Ivp) 10 mls @ 200 mls/hr IV DAILY [facility] Stop: 05/23/20 15:01 Last Admin: 04/23/20 15:07 Dose: 10 mls Documented by: Insulin Human Regular (Novolin -R) 0 unit SQ ACHS [facility]; Protocol Stop: 05/24/20 07:31 Ondansetron HCl (Zofran) 4 mg IV Q6H PRN PRN Reason: NAUSEA / VOMITING Stop: 05/23/20 22:12 Sertraline HCl (Zoloft) 100 mg PO DAILY [facility] Stop: 05/24/20 09:01 Sevelamer Carbonate (Renvela) 2,400 mg PO TIDWM [facility] Stop: 05/23/20 17:01 Last Admin: 04/23/20 17:00 Dose: Not Given Documented by: ROS: CV: denies chest pain RESP: Denies shortness of breath : Denies dysuria GI: Reports constipation and abdominal pain Objective: Temp Pulse Resp BP Pulse Ox 98.2 F 71 19 112/57 L 97 05/01/20 12:40 05/01/20 12:40 05/01/20 12:40 05/01/20 12:40 05/01/20 12:40 Labs: Sodium 135, potassium 4.8, BUN 48, creatinine 7.44, albumin 1.7, WBC 9.8, hemoglobin 8.9, hematocrit 26.6 ROS: General: Awake, alert, oriented CV: S1,S2 RESP: Good breath sounds ABD: Tenderness on palpation, bowel sounds present Extremities: weak pedal pulses Skin: Right great toe with sutures intact, saritha area with maceration Assessment and plan: Leukocytosis Osteomyelitis right great toe, s/p amputation 04/26, recommend to apply iodosorb daily Zosyn and Vancomycin day 3, continue while in the hospital Upon discharge can switch to Clindamycin PO Patient will need a total of 2 weeks of antibiotics ESRD on HD Diabetes mellitus, monitor glycemic control, educated the patient on glucose control and wound healing Protein calorie malnourished Will continue to monitor Thank you for consult Patient discussed with Dr. Wilson
[2020-05-01] MEDS: POLYETHYL GLY 3350 17 GM/DOSE PO PRN (14:22)
[2020-05-01] MEDS: ACETAMINOPHEN 500 MG TAB PO PRN (14:23)
[2020-05-01] MEDS: ATORVASTATIN 20 MG TAB PO SCH (21:05)
[2020-05-01] MEDS: DOCUSATE NA 100 MG CAP PO PRN (21:05)
--- NOTE | 2020-05-01 22:18 | PN ---
Date of Progress Note: 05/01/2020 Subjective: The patient was admitted with gangrenous toe, status post amputation. The patient re-admitted with altered mental status. Physical Examination: Vital Signs: When I saw the patient, blood pressure 125/68, pulse of 84, afebrile. The patient had dialysis today. Chest: Clear to auscultation. Heart: S1, S2. Regular. Abdomen: Soft, nontender. Extremities: No edema. Laboratory Data: WBC 17.6, H and H 7.6/22.6, platelet 262. Sodium 135, potassium 4.8, bicarb 23, BUN 48, creatinine 7.4, calcium 6.9, phosphorus 6.5, albumin 1.7. Corrected calcium is 8.9. Current Medications: The patient on its include; 1. Zosyn. 2. Vancomycin. 3. Plavix. 4. Epogen. 5. Gabapentin. 6. Zoloft. 7. Renvela. 8. Lactulose. 9. Nepro. Assessment And Plan: 1. End-stage renal disease. We will continue the patient on dialysis TTS and we will monitor the patient. 2. Hypertension, controlled, optimal. Continue current medications. 3. Secondary hyperparathyroidism. The patient refused to take her Renvela given the hypocalcemia. I am going to start the patient on Tums and we will follow up. 4. Anemia of chronic kidney disease. Continue LINWOOD. 5. Osteomyelitis, status post toe amputation. Continue current antibiotic. Follow up with the primary. 6. Diabetes, as by primary. time spent to coordinate the care , discussing with other team meember the care , face to face with the patient and discussed the plan with patient , placing order 35 min DEBBIE Voice ID: [id number] Report ID: [id number] DAYANARA
[2020-05-02] MEDS: PIPER/TAZO/NS 2.25gm 2.25 GM/50 ML BAG IVPB SCH ×3 (01:00→17:11)
[2020-05-02 06:20] LABS: Basophils % 0.5 % (0-1.3); Hematocrit 26.1 % (36.0-45.0); Lymphocytes % 14.9 % (15.3-44.8); MPV 8.9 fL (7.6-11.3); RBC Red Blood Cell Count 2.76 M/uL (3.86-4.86)
[2020-05-02 06:50] LABS: Phosphorus 4.7 mg/dL (2.5-4.9); Potassium 4.3 mmol/L (3.5-5.1)
[2020-05-02] MEDS: INSULIN -REGULAR HUMAN 50 UNIT/0.5 ML ML SQ SCH ×4 (08:52→21:00)
[2020-05-02] MEDS: CALCIUM CARBONATE CHEW 500MG TAB PO SCH ×3 (08:52→17:12)
[2020-05-02] MEDS: NEPRO SHAKE 237 ML CAN PO SCH ×2 (08:53→21:00)
[2020-05-02] MEDS: FOLIC ACID 1 MG TABLET PO SCH (08:53)
[2020-05-02] MEDS: CLOPIDOGREL 75 MG TABLET PO SCH (08:53)
[2020-05-02] MEDS: METOCLOPRAMIDE 5 MG TAB PO SCH (08:53)
[2020-05-02] MEDS: ASPIRIN 81 MG CHEWABLE TABLET PO SCH (08:53)
[2020-05-02] MEDS: GABAPENTIN 100 MG CAP PO SCH ×2 (08:53→21:03)
[2020-05-02] MEDS: SERTRALINE HCL 100 MG TAB PO SCH (08:53)
[2020-05-02] MEDS ORDERED: BISACODYL 10 MG RECTAL SUPP PR ONE (09:31)
--- NOTE | 2020-05-02 10:46 | RAD REPORT ---
EXAM DESCRIPTION: RAD - Abdomen 1 View (KUB) - 05/02/2020 10:15 am CLINICAL HISTORY: abdominal pain, constipation Pain COMPARISON: Abdomen 1 View (KUB) dated 02/17/2020; Abdomen 1 View (KUB) dated 12/25/2019 FINDINGS: The bowel gas pattern is non-obstructive. No evidence of free air or pneumatosis. Calcifie d fibroids noted left hemipelvis. No significant bony findings. Moderate stool is present in the rectosigmoid colon. IMPRESSION: Moderate rectosigmoid fecal retention.
--- NOTE | 2020-05-02 12:22 | PN ---
Date of Progress Note: 05/02/2020 Subjective: The patient complaining from constipation. The patient had osteomyelitis, status post treatment, status post amputation. Physical Examination: Vital Signs: Blood pressure 150/65, pulse of 74, afebrile. Chest: Clear to auscultation. Heart: S1, S2. Systolic murmur. Abdomen: Soft, nontender. Extremities: No edema. Dressing on the right foot. Laboratory Data: WBC 13.6, H and H 8.5/26.1. Sodium 137, potassium 4.3, bicarb 26, BUN 29, creatinine 5.3, calcium 7.6, phosphorus 4.7. C-reactive protein 22. Current Medications: The patient on include; 1. Plavix. 2. Vancomycin. 3. Zosyn. 4. Epogen. 5. Tums. 6. Atorvastatin. 7. Gabapentin. 8. Zoloft. 9. Reglan. Assessment And Plan: 1. End-stage renal disease. We will continue the patient on dialysis. The patient is going to be due for dialysis tomorrow. 2. Hypertension, controlled, optimal. Continue current medications. 3. Anemia of chronic kidney disease. Continue LINWOOD. 4. Secondary hyperparathyroidism. We will continue Tums for the time being. 5. Osteomyelitis. The patient is poor compliant with outpatient dialysis. Going to miss multiple doses of her vancomycin if she discharged as outpatient dialysis. Discussed with Dr. Canales regarding possible the patient needs either inpatient rehab or LTAC to make sure that she is getting her antibiotic. We will consult manager social services. time spent to coordinate the care , discussing with other team meember the care , face to face with the patient and discussed the plan with patient , placing order 35 min DEBBIE Voice ID: [id number] Report ID: [id number] DAYANARA
[2020-05-02] MEDS ORDERED: FLEET ENEMA ADULT PR ONE (12:36)
--- NOTE | 2020-05-02 13:59 | P.PN ---
Date of Service: 05/02/20 Subjective: Patient is a 44-year-old female with history of end-stage renal disease on hemodialysis, CVA with left-sided weakness, diabetes mellitus who presents from home with hypoglycemia. She was recently admitted for right great toe wound/osteomyelitis s/p amputation and was discharged with oral Clindamycin. Patient did not start her prescription due to readmission one day after she discharged home. I was consulted for right foot great toe surgical site s/p amputation from osteomyelitis. Patient examined at bedside. No new changes Objective: Temp Pulse Resp BP Pulse Ox 97.7 F 74 17 150/65 H 100 05/02/20 04:00 05/02/20 04:00 05/02/20 04:00 05/02/20 04:00 05/02/20 04:00 Labs: Sodium 137, potassium 4.3, BUN 29, creatinine 5.32, albumin 1.7, WBC 9.8, hemoglobin 8.5, hematocrit 26.1 ROS: General: Awake, alert, oriented CV: S1,S2 RESP: Good breath sounds ABD: Tenderness on palpation, bowel sounds present Extremities: weak pedal pulses Skin: Right great toe with sutures intact, saritha area with maceration Assessment and plan: Leukocytosis improving Osteomyelitis right great toe, s/p amputation 04/26, recommend to apply betadine daily Zosyn and Vancomycin day 4, continue while in the hospital Upon discharge can switch to Clindamycin PO Patient will need a total of 2 weeks of antibiotics ESRD on HD Diabetes mellitus, monitor glycemic control, educated the patient on glucose control and wound healing Patient would benefit from [facility] facility for wound management and Rehab Protein calorie malnourished Will continue to monitor Patient discussed with Dr. Wilson
[2020-05-02] MEDS: LACTULOSE 20 GM/30 ML UCUP PO PRN (14:51)
[2020-05-02] MEDS: POLYETHYL GLY 3350 17 GM/DOSE PO PRN ×2 (14:51→17:12)
--- NOTE | 2020-05-02 15:27 | P.PN ---
Subjective Date of Service: 05/02/20 Chief Complaint: Hypoglycemia/hypotension Subjective: Other (Overall doing okay, but complaining of abdominal pain and no bowel movement for several days) Physical Examination - Vital Signs Temperature: 97.7 F Blood Pressure: 150/65 Pulse: 74 Respirations: 17 Pulse Ox (%): 100 - Physical Exam General: Alert, In no apparent distress HEENT: Sclerae nonicteric Neck: No LAD Respiratory: Clear to auscultation bilaterally, Normal air movement Cardiovascular: Regular rate/rhythm Gastrointestinal: Soft and benign, Non-distended, Tenderness (Suprapubic/LLQ) Integumentary: Other (R 1st toe amputation site wrapped in Kerlix, c/d/i) Neurological: Normal affect Assessment & Plan Physician Review Additional Text: Sepsis, unclear source Hypoglycemia s/p R 1st toe amputation Hyponatremia DM2 with retinopathy HTN ESRD on hemodialysis History of CVA (residual left-sided weakness) Leukocytosis Sepsis of unknown origin -significant leukocytosis (31.8k) on admission, downtrending, no diarrhea - unlikely to be c.diff -continue IV zosyn & vanc -follow blood cultures, so far no growth -CRP 35 -> 22 -ID consulted, appreciate assistance -discussed with Dr. Beckman, patient is noncompliant with hemodialysis, unlikely to be compliant with antibiotics -to benefit from SNF or LTAC, consulted SW/CM Hypoglycemia DM2 with retinopathy -home meds: Tujeo 25units at night, and 12-15units humalog with meals - per sister -initially held home meds in setting hypoglycemia -no glucose increasing, we will restart home Tujeo at 10 units -insulin sliding scale ordered, adjust as needed Constipation -will obtain KUB, may benefit from supposiitory vs enema s/p R 1st toe amputation -wound care HTN -IV PRN for now -pt has had low BP ESRD on hemodialysis -nephrology consulted for dialysis History of CVA (residual left-sided weakness) -continue home ASA & Plavix Dispo: consulted SW/CM for LTAC vs SNF due to pt's noncompliance in recent past Time Spent Managing Pts Care (In Minutes): 35
[2020-05-02] MEDS: ATORVASTATIN 20 MG TAB PO SCH (21:03)
[2020-05-03] MEDS: PIPER/TAZO/NS 2.25gm 2.25 GM/50 ML BAG IVPB SCH ×3 (00:06→16:18)
[2020-05-03 04:37] LABS: Absolute Lymphocytes (CBC) 2.1 K/uL (0.7-4.9); Basophils % 0.7 % (0-1.3); Hematocrit 25.9 % (36.0-45.0); Lymphocytes % 17.8 % (15.3-44.8); MPV 8.6 fL (7.6-11.3); RBC Red Blood Cell Count 2.74 M/uL (3.86-4.86)
[2020-05-03 05:10] LABS: Albumin 1.9 g/dL (3.4-5.0); Phosphorus 5.9 mg/dL (2.5-4.9); Potassium 4.3 mmol/L (3.5-5.1)
[2020-05-03 06:59] LABS: HBsAG Nonreactive (Nonreactive)
[2020-05-03] MEDS: INSULIN -REGULAR HUMAN 50 UNIT/0.5 ML ML SQ SCH ×3 (07:30→16:19)
[2020-05-03] MEDS: CALCIUM CARBONATE CHEW 500MG TAB PO SCH ×3 (08:21→16:19)
[2020-05-03] MEDS: ASPIRIN 81 MG CHEWABLE TABLET PO SCH (08:22)
[2020-05-03] MEDS: SERTRALINE HCL 100 MG TAB PO SCH (08:22)
[2020-05-03] MEDS: CLOPIDOGREL 75 MG TABLET PO SCH (08:22)
[2020-05-03] MEDS: FOLIC ACID 1 MG TABLET PO SCH (08:22)
[2020-05-03] MEDS: METOCLOPRAMIDE 5 MG TAB PO SCH (08:22)
[2020-05-03] MEDS: GABAPENTIN 100 MG CAP PO SCH ×2 (08:22→23:41)
[2020-05-03] MEDS: NEPRO SHAKE 237 ML CAN PO SCH ×2 (08:23→21:00)
[2020-05-03] MEDS ORDERED: INSULIN GLARGINE HUM REC ANLOG 10 UNIT SQ SCH (09:00)
[2020-05-03] MEDS ORDERED: INSULIN GLARGINE 100 UNITS/ML SQ SCH (09:00)
--- NOTE | 2020-05-03 11:57 | PN ---
Date of Progress Note: 05/03/2020 Subjective: The patient was admitted with osteomyelitis, status post toe amputation. The patient re admitted for altered mental status and elevation in blood sugar. The patient is poor compliant as ou tpatient dialysis, which gave a concern about her receiving appropriate dosage of antibiotic as she m issed currently the dialysis. Physical Examination: Vital Signs: Blood pressure 148/63, pulse of 70. Chest: Clear to auscultation. Heart: S1, S2. Systolic murmur. Abdomen: Soft, nontender. Extremities: Dressing on the right foot. Neurologic: Alert and oriented x3. Legally blind. Laboratory Data: WBC 11.9, H and H 8.5/25.9. Sodium 136, potassium 4.3, bicarb 27, BUN 34, creatini ne 6.2, calcium 7.9, phosphorus 5.9, albumin 1.9. Current Medications: The patient on include Zosyn, vancomycin, Epogen, Plavix, calcium carbonate 1 g q.a.c., gabapentin, Zoloft, lactulose, Zofran. Assessment And Plan: 1.End-stage renal disease. We will continue the patient on dialysis Thursday, Thursday, Thursday. The patient is going to be scheduled for TTS, going to be scheduled for dialysis today, and we will foll ow up. 2.Hypertension, controlled, optimal. Continue current medications. We will follow up blood pressur e after dialysis. 3.Anemia of chronic kidney disease. Continue LINWOOD. 4.Secondary hyperparathyroidism, on calcium carbonate. The patient had calcium been stabilized and her phosphorus started trending down as the patient tolerated better than the Renvela. We will rain nue to monitor. 5.Osteomyelitis, status post toe amputation. Continue antibiotic. 6.Deconditioning. Continue PT, OT. We will follow up with social services technician regarding LTAC placement. CASSIE/KERI Voice ID: [id number] Report ID: [id number]
--- NOTE | 2020-05-03 12:38 | P.PN ---
Date of Service: 05/03/20 Subjective: Patient is a 44-year-old female with history of end-stage renal disease on hemodialysis, CVA with left-sided weakness, diabetes mellitus who presents from home with hypoglycemia. She was recently admitted for right great toe wound/osteomyelitis s/p amputation and was discharged with oral Clindamycin. Patient did not start her prescription due to readmission one day after she discharged home. I was consulted for right foot great toe surgical site s/p amputation from osteomyelitis. Patient examined at bedside. No new changes Objective: Temp Pulse Resp BP Pulse Ox 97.6 F 73 16 108/45 L 98 05/03/20 12:00 05/03/20 12:00 05/03/20 12:00 05/03/20 12:05/03/20 12:00 Labs: Sodium 136, potassium 4.3, BUN 34, creatinine 6.25, albumin 1.7, WBC 11.9, hemoglobin 8.5, hematocrit 25.9 ROS: General: Awake, alert, oriented CV: S1,S2 RESP: Good breath sounds ABD: Tenderness on palpation, bowel sounds present Extremities: weak pedal pulses Skin: Right great toe with sutures intact, saritha area with maceration and bruising Assessment and plan: Leukocytosis improving Osteomyelitis right great toe, s/p amputation 04/26, recommend to apply betadine daily Zosyn and Vancomycin day 5, continue while in the hospital Upon discharge can switch to Clindamycin PO Patient will need a total of 2 weeks of antibiotics ESRD on HD Diabetes mellitus, monitor glycemic control, educated the patient on glucose control and wound healing Patient would benefit from [facility] facility for wound management and Rehab Protein calorie malnourished Will continue to monitor Patient discussed with Dr. Wilson
--- NOTE | 2020-05-03 16:20 | P.PN ---
Subjective Date of Service: 05/03/20 Chief Complaint: Hypoglycemia/hypotension Subjective: Improving (had "good" BM overnight and a small one this morning, no longer with abdominal discomfort Otherwise continuing to feel better) Physical Examination - Vital Signs Temperature: 97.6 F Blood Pressure: 108/45 Pulse: 73 Respirations: 16 Pulse Ox (%): 98 - Physical Exam General: Alert, In no apparent distress HEENT: Mucous membr. moist/pink Neck: No LAD Respiratory: Clear to auscultation bilaterally, Normal air movement Cardiovascular: Regular rate/rhythm, Normal S1 S2 Gastrointestinal: Soft and benign, Non-distended, Tenderness (Mild periumbilical tenderness to palpation) Musculoskeletal: Other (s/p R 1st toe amputation, kerlix: c/d/i) Neurological: Normal speech, Normal affect Assessment & Plan Physician Review Additional Text: Sepsis, unclear source Hypoglycemia s/p R 1st toe amputation Hyponatremia DM2 with retinopathy HTN ESRD on hemodialysis History of CVA (residual left-sided weakness) Leukocytosis Sepsis of unknown origin -significant leukocytosis (31.8k) on admission, downtrending, no diarrhea -continue IV zosyn & vanc -follow blood cultures, so far no growth -CRP downtrend -ID consulted, appreciate assistance -discussed with Dr. Beckman, patient is noncompliant with hemodialysis, unlikely to be compliant with antibiotics -to benefit from SNF or LTAC, consulted SW/CM -after further discussion, patient has never received clindamycin after discharge, so did not fail therapy Hypoglycemia DM2 with retinopathy -home meds: Tujeo 25units at night, and 12-15units humalog with meals - per sister -initially held home meds in setting of hypoglycemia -glucose continues to stay elevated, to give 10 units, restarted on 05/02, will increase to 20 units -insulin sliding scale ordered, adjust as needed Constipation -benefitted from suppository and enema -feeling better s/p R 1st toe amputation -wound care HTN -pt has had low BP ESRD on hemodialysis -nephrology consulted for dialysis History of CVA (residual left-sided weakness) -continue home ASA & Plavix Dispo: consulted SW/CM for LTAC vs SNF due to pt's noncompliance in recent past Time Spent Managing Pts Care (In Minutes): 35
[2020-05-03] MEDS: ATORVASTATIN 20 MG TAB PO SCH (23:40)
[2020-05-04] MEDS: PIPER/TAZO/NS 2.25gm 2.25 GM/50 ML BAG IVPB SCH ×3 (00:47→16:53)
[2020-05-04] MEDS: INSULIN -REGULAR HUMAN 50 UNIT/0.5 ML ML SQ SCH ×5 (00:47→21:00)
[2020-05-04] MEDS: VANCOMYCIN 500 MG in NA CHLORIDE 0.9% 100 ML IVPB SCH (00:57)
[2020-05-04] MEDS ORDERED: VANCOMYCIN 500 MG/VIAL ONE (00:58)
[2020-05-04] MEDS ORDERED: NA CHLORIDE 0.9% 100 ML ONE (01:06)
[2020-05-04 06:09] LABS: Absolute Lymphocytes (CBC) 1.4 K/uL (0.7-4.9); Basophils % 1.3 % (0-1.3); Hematocrit 25.8 % (36.0-45.0); Lymphocytes % 13.1 % (15.3-44.8); MPV 8.6 fL (7.6-11.3); RBC Red Blood Cell Count 2.72 M/uL (3.86-4.86)
[2020-05-04 06:36] LABS: Potassium 4.1 mmol/L (3.5-5.1)
[2020-05-04] MEDS: CALCIUM CARBONATE CHEW 500MG TAB PO SCH ×3 (08:47→16:25)
[2020-05-04] MEDS: ASPIRIN 81 MG CHEWABLE TABLET PO SCH (08:48)
[2020-05-04] MEDS: SERTRALINE HCL 100 MG TAB PO SCH (08:48)
[2020-05-04] MEDS: METOCLOPRAMIDE 5 MG TAB PO SCH (08:48)
[2020-05-04] MEDS: GABAPENTIN 100 MG CAP PO SCH ×2 (08:48→21:06)
[2020-05-04] MEDS: CLOPIDOGREL 75 MG TABLET PO SCH (08:48)
[2020-05-04] MEDS: FOLIC ACID 1 MG TABLET PO SCH (08:48)
[2020-05-04] MEDS: INSULIN GLARGINE 100 UNITS/ML SQ SCH (08:49)
[2020-05-04] MEDS: NEPRO SHAKE 237 ML CAN PO SCH ×2 (08:51→21:00)
--- NOTE | 2020-05-04 09:45 | P.PN ---
Date of Service: 05/04/20 Subjective: Patient is a 44-year-old female with history of end-stage renal disease on hemodialysis, CVA with left-sided weakness, diabetes mellitus who presents from home with hypoglycemia. She was recently admitted for right great toe wound/osteomyelitis s/p amputation and was discharged with oral Clindamycin. Patient did not start her prescription due to readmission one day after she discharged home. I was consulted for right foot great toe surgical site s/p amputation from osteomyelitis. Patient examined at bedside. No new changes Objective: Temp Pulse Resp BP Pulse Ox 97.4 F 89 16 190/77 H 100 05/04/20 00:00 05/04/20 00:00 05/04/20 00:00 05/04/20 00:00 05/04/20 00:00 Labs: Sodium 141, potassium 4.1, BUN 23, creatinine 4.91, albumin 1.7, WBC 10.5, hemoglobin 8.5, hematocrit 25.8 ROS: General: Awake, alert, oriented CV: S1,S2 RESP: Good breath sounds ABD: Tenderness on palpation, bowel sounds present Extremities: weak pedal pulses Skin: Right great toe with sutures intact, saritha area with bruising Assessment and plan: Leukocytosis improving Osteomyelitis right great toe, s/p amputation 04/26, recommend to apply betadine daily Zosyn and Vancomycin day 6, continue while in the hospital Upon discharge can switch to Clindamycin PO Patient will need a total of 2 weeks of antibiotics ESRD on HD Diabetes mellitus, monitor glycemic control, educated the patient on glucose control and wound healing Patient would benefit from [facility] facility for wound management and Rehab Protein calorie malnourished Will continue to monitor Patient discussed with Dr. Wilson
[2020-05-04] MEDS: ACETAMINOPHEN 500 MG TAB PO PRN (10:06)
--- NOTE | 2020-05-04 12:44 | P.PN ---
Subjective Date of Service: 05/04/20 Chief Complaint: Hypoglycemia/hypotension Subjective Pt with ESRD , DM, HTN , hx of CVA, admitted Rt foot OM Today No new complaints HD tomorrow then Thursday pending placement physical exam general: awake and alert, NAD Neck; Supple, No elevated JVD hear: RRR, normal S1,2 no murmur or rub Chest: CTAB, no rlaes or wheezes Abdomen: Soft , Nt Extremities No edema , Rt foot dressing End-stage renal disease on HD [facility] HD tomorrow then Thursday renal dose meds Anemia of chronic disease Cont epogen HTN Controlled DM as per PCP Rt Foot OM cont ABx total time spent 30 min Physical Examination - Vital Signs Temperature: 98.5 F Blood Pressure: 155/67 Pulse: 76 Respirations: 18 Pulse Ox (%): 98
[2020-05-04] MEDS: INSULIN LISPRO 100 UNIT/1 ML SQ SCH ×2 (12:59→16:54)
--- NOTE | 2020-05-04 16:44 | P.PN ---
Subjective Date of Service: 05/04/20 Chief Complaint: Hypoglycemia/hypotension Subjective: Improving (Had another BM, feeling better. The reporting some increased phantom limb pain of her right toe Had a discussion about placement. Patient now not wanting to go to a shelter) Physical Examination - Vital Signs Temperature: 98.5 F Blood Pressure: 155/67 Pulse: 76 Respirations: 18 Pulse Ox (%): 98 - Physical Exam General: Alert, In no apparent distress HEENT: Mucous membr. moist/pink Neck: No LAD Respiratory: Clear to auscultation bilaterally, Normal air movement Cardiovascular: Regular rate/rhythm, Systolic murmur Gastrointestinal: Soft and benign, No tenderness Integumentary: Other (Right 1st toe amputation site: Dry, no surrounding erythema, no drainage) Neurological: Normal speech, Normal affect - Studies Microbiology Data (last 24 hrs): 04/29/20 13:15 Blood - Blood Aerobic Blood Culture - Final No growth in 5 days. 04/29/20 13:15 Blood - Blood Anaerobic Blood Culture - Final No growth in 5 days. 04/29/20 13:19 Blood - Blood Aerobic Blood Culture - Final No growth in 5 days. 04/29/20 13:19 Blood - Blood Anaerobic Blood Culture - Final No growth in 5 days. Assessment & Plan Physician Review Additional Text: Sepsis, unclear source Hypoglycemia s/p R 1st toe amputation Hyponatremia DM2 with retinopathy HTN ESRD on hemodialysis History of CVA (residual left-sided weakness) Leukocytosis Sepsis of unknown origin -significant leukocytosis (31.8k) on admission, downtrending, no diarrhea -continue IV zosyn & vanc -blood cultures, so far no growth, CRP downtrended -ID consulted, appreciate assistance -discussed with Dr. Beckman, patient is noncompliant with hemodialysis, unlikely to be compliant with antibiotics -to benefit from SNF or LTAC, consulted SW/CM -after further discussion, patient has never received clindamycin after discharge, so did not fail therapy Hypoglycemia DM2 with retinopathy -home meds: Tujeo 25units at night, and 12-15units humalog with meals - per sister -initially held home meds in setting of hypoglycemia -glucose continues to stay elevated, to give 10 units, restarted on 05/02, increased to 20 units on 05/03/2020, will add low-dose mealtime coverage -insulin sliding scale ordered, adjust as needed Constipation -benefitted from suppository and enema -feeling better s/p R 1st toe amputation -wound care HTN -pt has had low BP ESRD on hemodialysis -nephrology consulted for dialysis History of CVA (residual left-sided weakness) -continue home ASA & Plavix Dispo: consulted SW/MEAGHAN for LTAC vs SNF due to pt's noncompliance in recent past Time Spent Managing Pts Care (In Minutes): 35
[2020-05-04] MEDS: ATORVASTATIN 20 MG TAB PO SCH (21:07)
[2020-05-04 21:17] VITALS: BMI 28.7
[2020-05-05] MEDS: PIPER/TAZO/NS 2.25gm 2.25 GM/50 ML BAG IVPB SCH ×3 (01:00→21:05)
[2020-05-05] MEDS: INSULIN -REGULAR HUMAN 50 UNIT/0.5 ML ML SQ SCH ×4 (07:30→21:00)
[2020-05-05 08:01] LABS: Potassium 4.7 mmol/L (3.5-5.1)
[2020-05-05] MEDS: METOCLOPRAMIDE 5 MG TAB PO SCH (08:41)
[2020-05-05] MEDS: ASPIRIN 81 MG CHEWABLE TABLET PO SCH (08:42)
[2020-05-05] MEDS: CLOPIDOGREL 75 MG TABLET PO SCH (08:42)
[2020-05-05] MEDS: SERTRALINE HCL 100 MG TAB PO SCH (08:42)
[2020-05-05] MEDS: CALCIUM CARBONATE CHEW 500MG TAB PO SCH ×3 (08:42→17:08)
[2020-05-05] MEDS: FOLIC ACID 1 MG TABLET PO SCH (08:43)
[2020-05-05] MEDS: GABAPENTIN 100 MG CAP PO SCH ×2 (08:43→21:00)
[2020-05-05] MEDS: INSULIN GLARGINE 100 UNITS/ML SQ SCH (08:45)
[2020-05-05] MEDS: INSULIN LISPRO 100 UNIT/1 ML SQ SCH ×3 (08:45→17:09)
[2020-05-05] MEDS: NEPRO SHAKE 237 ML CAN PO SCH ×2 (08:46→21:00)
--- NOTE | 2020-05-05 11:25 | P.PN ---
Subjective Date of Service: 05/05/20 Chief Complaint: Hypoglycemia/hypotension Subjective: No new changes (feeling well, passing flatus /BM, no abdominal pain. Phantom limb pain improved no sob, no chest pain) Physical Examination - Vital Signs Temperature: 98.3 F Blood Pressure: 145/73 Pulse: 72 Respirations: 17 Pulse Ox (%): 98 - Physical Exam General: Alert, In no apparent distress HEENT: Mucous membr. moist/pink Neck: No LAD Respiratory: Clear to auscultation bilaterally, Normal air movement Cardiovascular: No edema, Regular rate/rhythm Gastrointestinal: Soft and benign, Non-distended, No tenderness Integumentary: Other (All right 1st toe amputation site: It was dry, no surrounding erythema, no drainage) Neurological: Normal speech, Normal affect - Studies Microbiology Data (last 24 hrs): 04/29/20 13:15 Blood - Blood Aerobic Blood Culture - Final No growth in 5 days. 04/29/20 13:15 Blood - Blood Anaerobic Blood Culture - Final No growth in 5 days. 04/29/20 13:19 Blood - Blood Aerobic Blood Culture - Final No growth in 5 days. 04/29/20 13:19 Blood - Blood Anaerobic Blood Culture - Final No growth in 5 days. Assessment & Plan Physician Review Additional Text: Sepsis, unclear source Hypoglycemia s/p R 1st toe amputation Hyponatremia DM2 with retinopathy HTN ESRD on hemodialysis History of CVA (residual left-sided weakness) Leukocytosis Sepsis of unknown origin -significant leukocytosis (31.8k) on admission, downtrending, no diarrhea -continue IV zosyn & vanc -blood cultures, so far no growth, CRP downtrended -ID consulted, appreciate assistance -discussed with Dr. Beckman, patient is noncompliant with hemodialysis, unlikely to be compliant with antibiotics -to benefit from SNF or LTAC, consulted SW/CM -after further discussion, patient has never received clindamycin after discharge, so did not fail therapy -had a long discussion with the patient today she is now agreements to go to a halfway if she is not accepted for LTAC Hypoglycemia DM2 with retinopathy -home meds: Tujeo 25units at night, and 12-15units humalog with meals - per sister -initially held home meds in setting of hypoglycemia -began to have hyperglycemia, Tujeo 10 units, restarted on 05/02, increased to 20 units on 05/03/2020, added low-dose mealtime coverage on 05/04 -insulin sliding scale ordered, adjust as needed Constipation -benefitted from suppository and enema -feeling better s/p R 1st toe amputation -wound care HTN -pt has had low BP ESRD on hemodialysis -nephrology consulted for dialysis History of CVA (residual left-sided weakness) -continue home ASA & Plavix Dispo: consulted SW/CM for LTAC vs SNF due to pt's noncompliance in recent past Time Spent Managing Pts Care (In Minutes): 35
--- NOTE | 2020-05-05 20:25 | PN ---
Subjective: The patient is seen on dialysis. Blood pressure has been stable but had multiple clots on the AV fistula. Physical Examination: Vital Signs: Blood pressure 140/64, pulse of 84. Chest: Clear to auscultation. Heart: S1, S2. Systolic murmur. Abdomen: Soft, nontender. Extremities: No edema. AV fistula on the left arm good thrill but low bruit. Laboratory Data: Potassium 4.7, BUN 30. Hemoglobin 8.5. Medications: The patient is on aspirin, Zosyn, Plavix, Epogen, heparin, calcium carbonate, gabapenti n, Zoloft. Assessment And Plan: 1.End-stage renal disease. Continue the patient on TTS. 2.Multiple clots found from the AV fistula. We will add to the patient heparin. We will load with 1000, then we will maintain the patient on 500 per hour and we will follow up. 3.Hypertension, controlled, optimal. Continue current medication. 4.Osteomyelitis status post amputation. Continue current antibiotic. Follow up with Infectious Dis eases. CASSIE/KERI Voice ID: [id number] Report ID: [id number]
[2020-05-05] MEDS: ATORVASTATIN 20 MG TAB PO SCH (21:00)
--- NOTE | 2020-05-05 21:46 | PN ---
Date of Progress Note: 05/05/2020 Subjective: The patient was admitted with the foot infection, status post debridement. The patient readmitted with hypoglycemia, altered mental status. The patient finished almost 10 days of antibiot ic. Physical Examination: Vital Signs: Blood pressure 140/64, pulse of 84. Chest: Clear to auscultation. Heart: S1 and S2 regular. Abdomen: Soft, nontender. Extremities: Dressing on the right foot. Laboratory Data: WBC 10.5, H and H of 8.5 and 25.8, platelets 246. Sodium 138, potassium 4.7, bicar b 28, BUN 30, creatinine 5.9, and calcium 7.7. Current Medications: The patient on it includes, 1.Zosyn. 2.Aspirin. 3.Plavix. 4.Epogen. 5.Heparin. 6.Calcium carbonate. 7.Atorvastatin. 8.Gabapentin 200 b.i.d. 9.Zoloft. 10.Metoclopramide. 11.Insulin. Assessment And Plan: 1.End-stage renal disease. We will continue the patient on dialysis TTS. 2.Secondary hyperparathyroidism. Continue calcitriol. 3.Anemia of chronic kidney disease. Continue LINWOOD. 4.Uncontrolled diabetes. Continue insulin. 5.Infected foot. Continue current antibiotic. 6.Malfunction arteriovenous fistula. We will add heparin. CASSIE/KERI Voice ID: [id number] Report ID: [id number]
[2020-05-06 06:19] LABS: Hematocrit 25.9 % (36.0-45.0); MPV 8.2 fL (7.6-11.3); RBC Red Blood Cell Count 2.72 M/uL (3.86-4.86)
[2020-05-06 06:35] LABS: Magnesium 2.1 mg/dL (1.8-2.4); Potassium 4.6 mmol/L (3.5-5.1)
[2020-05-06] MEDS: INSULIN -REGULAR HUMAN 50 UNIT/0.5 ML ML SQ SCH ×4 (07:30→21:00)
[2020-05-06] MEDS: METOCLOPRAMIDE 5 MG TAB PO SCH (08:16)
[2020-05-06] MEDS: ASPIRIN 81 MG CHEWABLE TABLET PO SCH (08:16)
[2020-05-06] MEDS: CLOPIDOGREL 75 MG TABLET PO SCH (08:16)
[2020-05-06] MEDS: CALCIUM CARBONATE CHEW 500MG TAB PO SCH ×3 (08:16→17:02)
[2020-05-06] MEDS: GABAPENTIN 100 MG CAP PO SCH ×2 (08:17→20:54)
[2020-05-06] MEDS: SERTRALINE HCL 100 MG TAB PO SCH (08:17)
[2020-05-06] MEDS: FOLIC ACID 1 MG TABLET PO SCH (08:17)
[2020-05-06] MEDS: NEPRO SHAKE 237 ML CAN PO SCH ×2 (08:18→20:56)
[2020-05-06] MEDS: LACTULOSE 20 GM/30 ML UCUP PO PRN (08:20)
[2020-05-06] MEDS: INSULIN GLARGINE 100 UNITS/ML SQ SCH (10:28)
[2020-05-06] MEDS: INSULIN LISPRO 100 UNIT/1 ML SQ SCH ×3 (10:28→17:02)
--- NOTE | 2020-05-06 11:07 | P.PN ---
Subjective Date of Service: 05/06/20 Chief Complaint: Hypoglycemia/hypotension Subjective: No new changes (Feeling well, has some soreness at amputation site) Physical Examination - Vital Signs Temperature: 100.0 F Blood Pressure: 147/66 Pulse: 84 Respirations: 18 Pulse Ox (%): 95 - Physical Exam General: Alert, In no apparent distress HEENT: Mucous membr. moist/pink Neck: Supple, JVD not distended Respiratory: Clear to auscultation bilaterally, Normal air movement Cardiovascular: No edema, Regular rate/rhythm, Normal S1 S2 Gastrointestinal: Soft and benign, Non-distended, No tenderness Integumentary: Other (Right 1st toe amputation site: Sutures intact, no surrounding erythema, no drainage, dry) Neurological: Normal speech, Normal affect Assessment & Plan Physician Review Additional Text: Sepsis, unclear source Hypoglycemia s/p R 1st toe amputation Hyponatremia DM2 with retinopathy HTN ESRD on hemodialysis History of CVA (residual left-sided weakness) Leukocytosis Sepsis of unknown origin -significant leukocytosis (31.8k) on admission, downtrending, no diarrhea -continue IV zosyn & vanc -blood cultures: no growth, CRP downtrended -ID consulted, appreciate assistance -discussed with Dr. Beckman, patient is noncompliant with hemodialysis, unlikely to be compliant with antibiotics -to benefit from SNF or LTAC, consulted SW/CM -after further discussion, patient has never received clindamycin after discharge, so did not fail therapy -patient is now in agreement to go to a snf if she is not accepted for LTAC Hypoglycemia DM2 with retinopathy -home meds: Tujeo 25units at night, and 12-15units humalog with meals - per sister -initially held home meds in setting of hypoglycemia -began to have hyperglycemia, Tujeo 10 units, restarted on 05/02, increased to 20 units on 05/03/2020, added low-dose mealtime coverage on 05/04 -insulin sliding scale ordered, adjust as needed -much better controlled Constipation -benefitted from suppository and enema -feeling better s/p R 1st toe amputation -wound care HTN -pt has had low BP ESRD on hemodialysis -nephrology consulted for dialysis History of CVA (residual left-sided weakness) -continue home ASA & Plavix Dispo: consulted SW/CM for LTAC vs SNF due to pt's noncompliance in recent past. Awaiting approval Time Spent Managing Pts Care (In Minutes): 25
--- NOTE | 2020-05-06 13:02 | PN ---
Date of Progress Note: 05/06/2020 Subjective: The patient was admitted with infected foot before treated and discharged. The patient readmitted with altered mental status secondary to fluctuation in her blood sugar. The patient being on antibiotics while she is in the hospital. The patient is more awake. Physical Examination: Vital Signs: Blood pressure 147/66, pulse of 84, afebrile. Chest: Clear to auscultation. Heart: S1, S2. Regular. Systolic murmur. Abdomen: Soft, nontender. Extremities: Dressing on her right foot. Neuro: The patient is legally blind. No focality. Laboratory Data: WBC 11.7, H and H 8.6/25, platelets 252. Sodium 142, potassium 4.6, bicarb 28, BUN 22, creatinine 4, calcium 7.5, magnesium 2.1. Current Medications: The patient on its include; 1.Heparin. 2.Plavix. 3.Epogen. 4.Calcium carbonate. 5.Zoloft. 6.Lactulose. 7.Folic acid. Assessment And Plan: 1.End-stage renal disease. We will continue the patient on dialysis TTS. 2.Secondary hyperparathyroidism. Continue calcium carbonate. Reinforce for the patient for low yeni sphorus diet. 3.Anemia of chronic kidney disease. We will continue LINWOOD. 4.Foot infection status post treatment. We will follow up with ID. 5.Deconditioning. Continue PT, OT. CASSIE/KERI Voice ID: [id number] Report ID: [id number]
[2020-05-06] MEDS: ATORVASTATIN 20 MG TAB PO SCH (20:54)
[2020-05-07 04:38] LABS: Absolute Lymphocytes (CBC) 2.1 K/uL (0.7-4.9); Basophils % 0.7 % (0-1.3); Hematocrit 25.4 % (36.0-45.0); Lymphocytes % 20.4 % (15.3-44.8); MPV 8.1 fL (7.6-11.3); RBC Red Blood Cell Count 2.64 M/uL (3.86-4.86)
[2020-05-07 05:18] LABS: Magnesium 2.1 mg/dL (1.8-2.4); Potassium 4.9 mmol/L (3.5-5.1)
[2020-05-07] MEDS: INSULIN -REGULAR HUMAN 50 UNIT/0.5 ML ML SQ SCH ×4 (07:30→21:00)
[2020-05-07] MEDS: METOCLOPRAMIDE 5 MG TAB PO SCH (08:03)
[2020-05-07] MEDS: GABAPENTIN 100 MG CAP PO SCH ×2 (08:04→21:52)
[2020-05-07] MEDS: CLOPIDOGREL 75 MG TABLET PO SCH (08:04)
[2020-05-07] MEDS: SERTRALINE HCL 100 MG TAB PO SCH (08:04)
[2020-05-07] MEDS: CALCIUM CARBONATE CHEW 500MG TAB PO SCH ×3 (08:04→17:13)
[2020-05-07] MEDS: ASPIRIN 81 MG CHEWABLE TABLET PO SCH (08:04)
[2020-05-07] MEDS: FOLIC ACID 1 MG TABLET PO SCH (08:05)
[2020-05-07] MEDS: INSULIN GLARGINE 100 UNITS/ML SQ SCH (08:06)
[2020-05-07] MEDS: NEPRO SHAKE 237 ML CAN PO SCH ×2 (08:07→21:00)
[2020-05-07] MEDS: INSULIN LISPRO 100 UNIT/1 ML SQ SCH ×3 (08:07→17:13)
[2020-05-07] MEDS ORDERED: VANCOMYCIN 500 MG in NA CHLORIDE 0.9% 100 ML IVPB SCH (08:45)
[2020-05-07] MEDS: PIPER/TAZO/NS 2.25gm 2.25 GM/50 ML BAG IVPB SCH ×2 (09:00→18:09)
[2020-05-07] MEDS: EPOETIN ALFA 10,000 UNIT/ML VIAL IV SCH (11:00)
--- NOTE | 2020-05-07 12:47 | P.PN ---
Date of Service: 05/07/20 Subjective: Patient is a 44-year-old female with history of end-stage renal disease on hemodialysis, CVA with left-sided weakness, diabetes mellitus who presents from home with hypoglycemia. She was recently admitted for right great toe wound/osteomyelitis s/p amputation and was discharged with oral Clindamycin. Patient did not start her prescription due to readmission one day after she discharged home. I was consulted for right foot great toe surgical site s/p amputation from osteomyelitis. Patient examined at bedside. No new changes Objective: Temp Pulse Resp BP Pulse Ox 98.2 F 81 18 174/74 H 96 05/07/20 08:00 05/07/20 08:00 05/07/20 08:00 05/07/20 08:00 05/07/20 08:00 Labs: Sodium 139, potassium 4.9, BUN 34, creatinine 5.06, albumin 1.7, WBC 10.1, hemoglobin 8.2, hematocrit 25.4 ROS: General: Awake, alert, oriented CV: S1,S2 RESP: Good breath sounds ABD: Tenderness on palpation, bowel sounds present Extremities: weak pedal pulses Skin: Right great toe with sutures intact, saritha area with bruising Assessment and plan: Leukocytosis improving Osteomyelitis right great toe, s/p amputation 04/26, recommend to apply betadine daily Zosyn and Vancomycin day 9, continue while in the hospital Upon discharge can switch to Clindamycin PO Patient will need a total of 2 weeks of antibiotics ESRD on HD Diabetes mellitus, monitor glycemic control, educated the patient on glucose control and wound healing Patient to be discharged home with Home health Protein calorie malnourished Will continue to monitor Patient discussed with Dr. Wilson
--- NOTE | 2020-05-07 14:56 | P.DS ---
Admission Date: 04/29/20 Discharge Date: 05/07/20 Disposition: DC HOME/HOME HEALTH CARE Discharge Condition: GOOD Reason for Admission: Hypoglycemia/hypotension Vital Signs/Physical Exam: Temp Pulse Resp BP Pulse Ox 97.5 F 82 17 143/74 H 99 05/07/20 12:00 05/07/20 12:00 05/07/20 12:00 05/07/20 12:00 05/07/20 12:00 Laboratory Data at Discharge: WBC 10.1 K/uL (4.3-10.9) 05/07/20 03:57 Hgb 8.2 g/dL (12.0-15.0) L 05/07/20 03:57 Hct 25.4 % (36.0-45.0) L 05/07/20 03:57 Plt Count 266 K/uL (152-406) 05/07/20 03:57 PT 13.7 SECONDS (9.5-12.5) H 04/29/20 13:15 INR 1.16 04/29/20 13:15 Sodium 139 mmol/L (136-145) 05/07/20 03:57 Potassium 4.9 mmol/L (3.5-5.1) 05/07/20 03:57 BUN 34 mg/dL (7-18) H 05/07/20 03:57 Creatinine 5.06 mg/dL (0.55-1.3) H* D 05/07/20 03:57 Glucose 102 mg/dL (74-106) 05/07/20 03:57 Phosphorus 5.9 mg/dL (2.5-4.9) H 05/03/20 04:09 Magnesium 2.1 mg/dL (1.8-2.4) 05/07/20 03:57 Total Bilirubin 0.5 mg/dL (0.2-1.0) 04/30/20 05:37 AST 5 U/L (15-37) L 04/30/20 05:37 ALT 10 U/L (12-78) L 04/30/20 05:37 Alkaline Phosphatase 90 U/L (45-117) 04/30/20 05:37 Troponin I < 0.02 ng/mL (0.0-0.045) 04/30/20 05:37 Home Medications: Aspirin 81 mg PO DAILY 12/23/19 Gabapentin 100 mg PO BID 12/23/19 Metoclopramide HCl [Reglan] 10 mg PO DAILY 12/23/19 Sertraline [Zoloft*] 100 mg PO DAILY 12/23/19 Sevelamer Carbonate [Renvela*] 2,400 mg PO TIDWM #90 tablet 12/24/19 Clopidogrel Bisulfate [Plavix*] 75 mg PO DAILY #30 tablet 12/26/19 Folic Acid 1 mg PO DAILY #30 tablet 12/26/19 Atorvastatin Calcium [Lipitor] 20 mg PO BEDTIME 02/09/20 carvediloL [Coreg*] 6.25 mg PO BID 02/09/20 Nepro Shake [Nepro*] 250 ml PO BID #60 can 02/13/20 Epoetin [Retacrit] 10,000 unit IV EVERY HD vial 04/28/20 Insulin Lispro [Humalog] 5 unit SQ TIDWM #10 ml 04/28/20 L. Acidophilus/L.bulgaricus [Lactobacillus Tablet] 1 each PO TID #90 tablet 04/28/20 Docusate [Colace Cap*] 100 mg PO DAILYPRN PRN 04/30/20 Calcium Carbonate [Tums Regular*] 2 tab PO AC 30 Days #30 tab 05/07/20 Insulin Glargine,Hum.rec.anlog [Toujeo Max Solostar] 20 unit SQ DAILY 30 Days #1 kit 05/07/20 clindamycin HCL [Clindamycin HCl] 1 tab PO TID 6 Days #18 capsule 05/07/20 New Medications: clindamycin HCL [Clindamycin HCl] 1 tab PO TID 6 Days #18 capsule Insulin Glargine,Hum.rec.anlog [Toujeo Max Solostar] 20 unit SQ DAILY 30 Days #1 kit Calcium Carbonate [Tums Regular*] 2 tab PO AC 30 Days #30 tab Patient Discharge Instructions: Follow up with PCP within 1 week. Follow up with Dr. Lorenzo as scheduled. Follow up with Hemodialysis as scheduled Diet: Renal (low phosphorous diet) Activity: Ad abdias
--- NOTE | 2020-05-07 17:47 | P.PN ---
Subjective Date of Service: 05/07/20 Chief Complaint: Hypoglycemia/hypotension Subjective: No new changes (Patient reports overall doing well, no new complaints Discussed she was not approved for LTAC, patient does not want to go to half-way Denies chest pain, denies shortness of breath, denies abdominal pain Reports right foot pain has improved) Physical Examination - Vital Signs Temperature: 98.1 F Blood Pressure: 138/65 Pulse: 81 Respirations: 18 Pulse Ox (%): 99 - Physical Exam General: Alert, In no apparent distress HEENT: Mucous membr. moist/pink Respiratory: Clear to auscultation bilaterally, Normal air movement Cardiovascular: No edema, Regular rate/rhythm, Normal S1 S2, Systolic murmur Gastrointestinal: Soft and benign, Non-distended, No tenderness Musculoskeletal: No tenderness Integumentary: Other (Right 1st toe amputation site, sutures in place, no signs of infection) Neurological: Normal speech, Normal affect Assessment & Plan Physician Review Additional Text: Sepsis, unclear source Hypoglycemia s/p R 1st toe amputation Hyponatremia DM2 with retinopathy HTN ESRD on hemodialysis History of CVA (residual left-sided weakness) Leukocytosis Sepsis of unknown origin -significant leukocytosis (31.8k) on admission, downtrending, no diarrhea -blood cultures: no growth, CRP downtrended -ID consulted: continue IV zosyn & vanc while inpatient, can switch to Cipro on discharge, wound site did not appear infected on admission -discussed with Dr. Beckman, patient is noncompliant with hemodialysis, unlikely to be compliant with antibiotics -to benefit from SNF or LTAC, consulted SW/CM - patient was denied -after further discussion, patient has never received clindamycin after discharge, so did not fail therapy -plan for discharge home with home health later today Hypoglycemia DM2 with retinopathy -home meds: Tujeo 25units at night, and 12-15units humalog with meals - per sister -initially held home meds in setting of hypoglycemia -began to have hyperglycemia, Tujeo 10 units, restarted on 05/02, increased to 20 units on 05/03/2020, added low-dose mealtime coverage on 05/04 -insulin sliding scale ordered, adjust as needed -much better controlled Constipation -benefitted from suppository and enema -feeling better s/p R 1st toe amputation -wound care HTN -pt has had low BP ESRD on hemodialysis -nephrology consulted for dialysis History of CVA (residual left-sided weakness) -continue home ASA & Plavix Dispo: home with home health today, Bibi on discharge, to f/u with Dr. Lorenzo on Thursday Time Spent Managing Pts Care (In Minutes): 35
--- NOTE | 2020-05-07 17:52 | RAD REPORT ---
EXAM DESCRIPTION: US - Extremity Venous Uni Ltd - 05/07/2020 5:45 pm CLINICAL HISTORY: R/O DVT, left leg pain and swelling COMPARISON: None. TECHNIQUE: Real-time sonographic evaluation of the left lower extremity deep venous system was perfo rmed. FINDINGS: Normal compressibility, flow augmentation, phasic flow and spontaneous flow are identified in the left lower extremity common femoral, superficial femoral, popliteal and posterior tibial vein s. No intraluminal filling defects seen. IMPRESSION: No DVT in the left lower extremity.
--- NOTE | 2020-05-07 18:05 | RAD REPORT ---
EXAM DESCRIPTION: RAD - Tib Fib Left - 05/07/2020 5:48 pm CLINICAL HISTORY: Bruising, leg pain COMPARISON: None. FINDINGS: No fracture is identified. There is no dislocation or periosteal reaction noted. No cortic al thinning, thickening or disruption is identified. There is a mottled, heterogeneous pattern to the trabecula, more than typically seen for a patient this age. Early or for mixture osteopenic changes possible and can be correlated with any dialysis history or metabolic disease. Patient has very littl e muscle mass which may indicate limited for non ambulatory state. A pathologic marrow replacing proc ess is unlikely. Correlation can be made with the contralateral leg. No foreign body or other soft tissue abnormality. IMPRESSION: No fracture or acute bone process seen. No focal bone destructive process identified. Mottled appearance to the trabecula of the lower leg may be due to disuse osteopenia. Patient has sasha y little muscle mass indicating that she may be none ambulatory.
[2020-05-07] MEDS: ATORVASTATIN 20 MG TAB PO SCH (21:52)
[2020-05-08] MEDS: PIPER/TAZO/NS 2.25gm 2.25 GM/50 ML BAG IVPB SCH ×2 (01:00→08:53)
--- NOTE | 2020-05-08 02:10 | PN ---
Date of Progress Note: 05/07/2020 Chief Complaint: End-stage renal disease on dialysis, history of diabetic kidney disease, peripheral neuropathy. Subjective: The patient was admitted to the hospital because of infected foot and altered mental sta tus. The patient previously had workup done for possible TIA and CVA. She has history of hypertensi on. Blood pressure during this admission was well controlled. The patient underwent dialysis today for metabolic clearance. Electrolytes were within normal limits . Review of Systems: Denies PND or orthopnea. Physical Examination: Lungs: Diminished breath sounds at bases. Heart: S1, S2. Abdomen: Soft, benign. Extremities: Slight edema. Neurologic: The patient is legally blind. Laboratory Data: Sodium 140, potassium 4.6, bicarbonate 28, BUN 22, creatinine 4.0, magnesium 2.1. Impression And Plan: 1.End-stage renal disease. The patient will continue dialysis. Today, she underwent dialysis with ultrafiltration to control fluid overload. Monitor electrolytes and fluid balance. 2.Hypertension. Continue current blood pressure medication. 3.Anemia of chronic kidney disease. Continue LINWOOD. 4.Foot infection, status post debridement. Continue antibiotics. EB/MODL Voice ID: [id number] Report ID: [id number]
[2020-05-08 05:18] LABS: Absolute Lymphocytes (CBC) 1.8 K/uL (0.7-4.9); Hematocrit 24.5 % (36.0-45.0); Lymphocytes % 17.8 % (15.3-44.8); MPV 8.1 fL (7.6-11.3); RBC Red Blood Cell Count 2.58 M/uL (3.86-4.86)
[2020-05-08 05:33] LABS: Albumin 1.8 g/dL (3.4-5.0); Bilirubin Total 0.3 mg/dL (0.2-1.0); Magnesium 2.1 mg/dL (1.8-2.4); Potassium 4.4 mmol/L (3.5-5.1); Protein, Total 5.7 g/dL (6.4-8.2)
[2020-05-08] MEDS: INSULIN -REGULAR HUMAN 50 UNIT/0.5 ML ML SQ SCH ×2 (07:30→11:30)
[2020-05-08] MEDS: INSULIN LISPRO 100 UNIT/1 ML SQ SCH ×2 (08:31→12:03)
[2020-05-08] MEDS: INSULIN GLARGINE 100 UNITS/ML SQ SCH (08:32)
[2020-05-08] MEDS: SERTRALINE HCL 100 MG TAB PO SCH (08:32)
[2020-05-08] MEDS: CALCIUM CARBONATE CHEW 500MG TAB PO SCH ×2 (08:32→12:03)
[2020-05-08] MEDS: GABAPENTIN 100 MG CAP PO SCH (08:33)
[2020-05-08] MEDS: FOLIC ACID 1 MG TABLET PO SCH (08:33)
[2020-05-08] MEDS: ASPIRIN 81 MG CHEWABLE TABLET PO SCH (08:33)
[2020-05-08] MEDS: METOCLOPRAMIDE 5 MG TAB PO SCH (08:33)
[2020-05-08] MEDS: CLOPIDOGREL 75 MG TABLET PO SCH (08:33)
[2020-05-08] MEDS: NEPRO SHAKE 237 ML CAN PO SCH (08:34)
[2020-05-08 09:31] VITALS: O2SAT 94
[2020-05-08 10:06] VITALS: BP 156/69; TEMP 98.8
--- NOTE | 2020-05-08 11:34 | P.DS ---
Admission Date: 04/29/20 Discharge Date: 05/08/20 Disposition: DC HOME/HOME HEALTH CARE Discharge Condition: GOOD Reason for Admission: Hypoglycemia/hypotension - Problems (1) Diabetes mellitus type 2 in nonobese Current Visit: Yes Status: Acute (2) Hypoglycemia Current Visit: Yes Status: Acute (3) Sepsis Current Visit: Yes Status: Acute (4) Status post amputation of right great toe Current Visit: Yes Status: Acute (5) End-stage renal disease on hemodialysis Current Visit: No Status: Acute (6) History of CVA (cerebrovascular accident) Current Visit: No Status: Acute (7) Septic shock Current Visit: Yes Status: Acute Brief History of Present Illness: 44-year-old woman with a history of CVA, blindness, end-stage renal disease on hemodialysis, recent hospitalization and amputation for right great toe gangrene was brought to the emergency department due to episode of altered mental status. Patient was found to have hypoglycemia and white cell count severely elevated. Noted patient was discharged to home previously with oral clindamycin to continue treatment for the right great toe gangrene and osteomyelitis. Patient was subsequently admitted for further management. Hospital Course: Patient admitted initially to the ICU and aggressively treated with antibiotics. He received 9 days of IV Zosyn and vancomycin. Blood cultures yielded no growth. Her right great toe amputation wound looked clean, no discharge. Patient clinically improved. Infectious disease was consulted recommended transition to oral clindamycin on discharge and to continue treatment for 2 weeks. Her blood sugar was stable on insulin regimen-Lantus 20 units daily and premeal insulin 5 units. Patient developed ecchymoses on the left leg. Venous Doppler was negative for DVT. X-ray of the leg was also unremarkable. Ecchymosis is likely secondary to bruise and has improved since yesterday. Patient states she she feels well and requests to go home. She is deemed clinically stable for discharge. Vital Signs/Physical Exam: Temp Pulse Resp BP Pulse Ox 98.8 F 86 18 156/69 H 98 05/08/20 08:00 05/08/20 08:00 05/08/20 08:00 05/08/20 08:00 05/08/20 08:00 General: Alert, In no apparent distress Neck: Supple Respiratory: Clear to auscultation bilaterally, Normal air movement Cardiovascular: No edema, Regular rate/rhythm, Normal S1 S2 Capillary refill: <2 Seconds Gastrointestinal: Normal bowel sounds, Soft and benign, No tenderness Musculoskeletal: Erythema (Left shetty) Integumentary: Erythema (Left shetty) Laboratory Data at Discharge: WBC 9.9 K/uL (4.3-10.9) 05/08/20 04:47 Hgb 8.1 g/dL (12.0-15.0) L 05/08/20 04:47 Hct 24.5 % (36.0-45.0) L 05/08/20 04:47 Plt Count 241 K/uL (152-406) 05/08/20 04:47 PT 13.7 SECONDS (9.5-12.5) H 04/29/20 13:15 INR 1.16 04/29/20 13:15 Sodium 139 mmol/L (136-145) 05/08/20 04:47 Potassium 4.4 mmol/L (3.5-5.1) 05/08/20 04:47 BUN 26 mg/dL (7-18) H 05/08/20 04:47 Creatinine 3.92 mg/dL (0.55-1.3) H D 05/08/20 04:47 Glucose 176 mg/dL (74-106) H 05/08/20 04:47 Phosphorus 5.9 mg/dL (2.5-4.9) H 05/03/20 04:09 Magnesium 2.1 mg/dL (1.8-2.4) 05/08/20 04:47 Total Bilirubin 0.3 mg/dL (0.2-1.0) 05/08/20 04:47 AST 10 U/L (15-37) L 05/08/20 04:47 ALT 9 U/L (12-78) L 05/08/20 04:47 Alkaline Phosphatase 78 U/L (45-117) 05/08/20 04:47 Troponin I < 0.02 ng/mL (0.0-0.045) 04/30/20 05:37 Home Medications: Aspirin 81 mg PO DAILY 12/23/19 Gabapentin 100 mg PO BID 12/23/19 Metoclopramide HCl [Reglan] 10 mg PO DAILY 12/23/19 Sertraline [Zoloft*] 100 mg PO DAILY 12/23/19 Sevelamer Carbonate [Renvela*] 2,400 mg PO TIDWM #90 tablet 12/24/19 Clopidogrel Bisulfate [Plavix*] 75 mg PO DAILY #30 tablet 12/26/19 Folic Acid 1 mg PO DAILY #30 tablet 12/26/19 Atorvastatin Calcium [Lipitor] 20 mg PO BEDTIME 02/09/20 carvediloL [Coreg*] 6.25 mg PO BID 02/09/20 Nepro Shake [Nepro*] 250 ml PO BID #60 can 02/13/20 Epoetin [Retacrit] 10,000 unit IV EVERY HD vial 04/28/20 Insulin Lispro [Humalog] 5 unit SQ TIDWM #10 ml 04/28/20 L. Acidophilus/L.bulgaricus [Lactobacillus Tablet] 1 each PO TID #90 tablet 04/28/20 Docusate [Colace Cap*] 100 mg PO DAILYPRN PRN 04/30/20 Calcium Carbonate [Tums Regular*] 2 tab PO AC 30 Days #30 tab 05/07/20 Insulin Glargine,Hum.rec.anlog [Toujeo Max Solostar] 20 unit SQ DAILY 30 Days #1 kit 05/07/20 clindamycin HCL [Clindamycin HCl] 1 tab PO TID 6 Days #18 capsule 05/07/20 Polyethyl Gly 3350 [Glycolax*] 17 gm PO DAILY PRN #30 udbot 05/08/20 Sennosides [Senna] 17.2 mg PO BID #120 tablet 05/08/20 New Medications: clindamycin HCL [Clindamycin HCl] 1 tab PO TID 6 Days #18 capsule Polyethyl Gly 3350 [Glycolax*] 17 gm PO DAILY PRN #30 udbot PRN Reason: Constipation Sennosides [Senna] 17.2 mg PO BID #120 tablet Insulin Glargine,Hum.rec.anlog [Toujeo Max Solostar] 20 unit SQ DAILY 30 Days #1 kit Calcium Carbonate [Tums Regular*] 2 tab PO AC 30 Days #30 tab Patient Discharge Instructions: Follow up with PCP within 1 week. Follow up with Dr. Lorenzo as scheduled. Follow up with Hemodialysis as scheduled Diet: Renal (low phosphorous diet) Activity: Fall precautions Followup: Tristan Nunes MD [ACTIVE - CAN ADMIT] -
--- NOTE | 2020-05-08 12:40 | P.PN ---
Subjective Date of Service: 05/08/20 Chief Complaint: Hypoglycemia/hypotension Subjective Pt with ESRD , DM, HTN , hx of CVA, admitted Rt foot OM Today No new complaints plan for discharge today to resume her HD as an outpatient tomorrow physical exam general: awake and alert, NAD Neck; Supple, No elevated JVD hear: RRR, normal S1,2 no murmur or rub Chest: CTAB, no rlaes or wheezes Abdomen: Soft , Nt Extremities No edema , Rt foot dressing End-stage renal disease on HD MWF to resume her HD as an outpatient tomorrow renal dose meds Anemia of chronic disease Cont epogen HTN Controlled DM as per PCP Rt Foot OM cont ABx total time spent 30 min Physical Examination - Vital Signs Temperature: 98.8 F Blood Pressure: 156/69 Pulse: 86 Respirations: 18 Pulse Ox (%): 98
--- NOTE | 2020-05-08 13:41 | P.PN ---
Date of Service: 05/08/20 Subjective: Patient is a 44-year-old female with history of end-stage renal disease on hemodialysis, CVA with left-sided weakness, diabetes mellitus who presents from home with hypoglycemia. She was recently admitted for right great toe wound/osteomyelitis s/p amputation and was discharged with oral Clindamycin. Patient did not start her prescription due to readmission one day after she discharged home. I was consulted for right foot great toe surgical site s/p amputation from osteomyelitis. Patient examined at bedside. No new changes. Patient to be discharged home with home health Objective: Temp Pulse Resp BP Pulse Ox 98.8 F 86 18 156/69 H 98 05/08/20 12:40 05/08/20 12:40 05/08/20 12:40 05/08/20 12:40 05/08/20 12:40 Labs: Sodium 139, potassium 4.4, BUN 26, creatinine 3.92, albumin 1.7, WBC 9.9, hemoglobin 8.1, hematocrit 24.5 ROS: General: Awake, alert, oriented CV: S1,S2 RESP: Good breath sounds ABD: Tenderness on palpation, bowel sounds present Extremities: weak pedal pulses Skin: Right great toe with dressing CDI Assessment and plan: Leukocytosis improving Osteomyelitis right great toe, s/p amputation 04/26, recommend to apply betadine daily Zosyn and Vancomycin day 10, continue while in the hospital Upon discharge can switch to Clindamycin PO Patient will need a total of 2 weeks of antibiotics ESRD on HD Diabetes mellitus, monitor glycemic control, educated the patient on glucose control and wound healing Patient to be discharged home with Home health Protein calorie malnourished Will continue to monitor Patient discussed with Dr. Wilson
== END 2020-05-08 14:10 | disposition home health service (06) | DRG 871 ==
LOC: ER 12:50 → ERHOLD 16:15 → 2ND 04-30 19:27
PROVIDERS: ADMIT Hospitalist; ATTEND Internal Medicine
DX: A41.9 Sepsis, unspecified organism (principal); N18.6 End stage renal disease; R65.21 Severe sepsis with septic shock; I12.0 Hypertensive chronic kidney disease with stage 5 chronic kidney disease or end stage renal disease; M86.8X7 Other osteomyelitis, ankle and foot; E87.1 Hypo-osmolality and hyponatremia; I69.354 Hemiplegia and hemiparesis following cerebral infarction affecting left non-dominant side; N25.81 Secondary hyperparathyroidism of renal origin; T82.590A Other mechanical complication of surgically created arteriovenous fistula, initial encounter; E11.649 Type 2 diabetes mellitus with hypoglycemia without coma; Z99.2 Dependence on renal dialysis; E11.22 Type 2 diabetes mellitus with diabetic chronic kidney disease; Z89.411 Acquired absence of right great toe; Z79.82 Long term (current) use of aspirin; Z79.4 Long term (current) use of insulin; Z79.02 Long term (current) use of antithrombotics/antiplatelets; Z79.899 Other long term (current) drug therapy; E11.319 Type 2 diabetes mellitus with unspecified diabetic retinopathy without macular edema; E11.40 Type 2 diabetes mellitus with diabetic neuropathy, unspecified; H54.8 Legal blindness, as defined in USA; Z90.49 Acquired absence of other specified parts of digestive tract; K21.9 Gastro-esophageal reflux disease without esophagitis; E11.69 Type 2 diabetes mellitus with other specified complication; F41.8 Other specified anxiety disorders; E11.43 Type 2 diabetes mellitus with diabetic autonomic (poly)neuropathy; K31.84 Gastroparesis; E88.09 Other disorders of plasma-protein metabolism, not elsewhere classified; N25.0 Renal osteodystrophy; E87.70 Fluid overload, unspecified; F17.290 Nicotine dependence, other tobacco product, uncomplicated; D63.1 Anemia in chronic kidney disease; Z91.15 Patient's noncompliance with renal dialysis; Z91.14 Patient's other noncompliance with medication regimen; K59.00 Constipation, unspecified
CPT/HCPCS: 36415; 71045; 74018; 80048; 80053; 80069; 80076; 80202; 82947; 83605; 83735; 83880; 84100; 84145; 84484; 85025; 85027; 85610; 86140; 86704; 86706; 86803; 86850; 86900; 86901; 87040; 87340; 90935; 93005; 93971; 96361; 96365; 96375; 97110; 97112; 97161; 97530; 99285; J1644; J1815; J7030; J7042; J7050; Q5105

== ENCOUNTER 2020-05-17 18:24 | Emergency (ER) | payer OTHER ==
[2020-05-17] MEDS ORDERED: PIPER/TAZO/NS 3.375gm 3.375 GM/100 ML BAG ONE (21:12)
[2020-05-17] MEDS ORDERED: ONDANSETRON 4 MG/2 ML VIAL ONE (22:07)
[2020-05-17] MEDS ORDERED: MORPHINE 4 MG/ML SYR ONE (22:07)
[2020-05-17 22:34] LABS: Absolute Lymphocytes (CBC) 1.1 K/uL (0.7-4.9); Basophils % 1.3 % (0-1.3); Hematocrit 27.6 % (36.0-45.0); Lymphocytes % 15.3 % (15.3-44.8); MPV 8.4 fL (7.6-11.3); RBC Red Blood Cell Count 2.91 M/uL (3.86-4.86)
[2020-05-17 22:41] LABS: Protime INR 0.98
[2020-05-17] MEDS ORDERED: NA CHLORIDE 0.9% 250 ML ONE (22:45)
[2020-05-17] MEDS ORDERED: VANCOMYCIN 1 GM/VIAL ONE (22:45)
[2020-05-17 23:11] LABS: Albumin 2.6 g/dL (3.4-5.0); Bilirubin Direct 0.1 mg/dL (0-0.2); Bilirubin Total 0.4 mg/dL (0.2-1.0); Potassium 3.6 mmol/L (3.5-5.1); Protein, Total 7.5 g/dL (6.4-8.2)
[2020-05-17] MEDS ORDERED: FENTANYL CITR 100 MCG/2 ML ONE (23:37)
--- NOTE | 2020-05-18 00:07 | EDPHYS ---
Physician Documentation [facility] Name: Archana Woo Age: 44 yrs Sex: Female : 1975 Arrival Date: 05/17/2020 Time: 18:26 Bed 15 Private MD: ED Physician Cristian Mcclure HPI: 05/18 02:08 This 44 yrs old Female presents to ER via Wheelchair with complaints of tw4 Infected Toe. 02:08 The patient presents with pain, that is acute. The complaints affect the left foot. tw4 Onset: The symptoms/episode began/occurred 5 day(s) ago. Modifying factors: The symptoms are alleviated by nothing, the symptoms are aggravated by nothing. Severity of symptoms: At their worst the symptoms were moderate, in the emergency department the symptoms are unchanged. The patient has not experienced similar symptoms in the past. The patient has been recently seen by a physician:. 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 - Social history:: Smoking status: Patient reports the use of cigarette tobacco products, denies chronic smoking, but will smoke occasionally. ROS: 05/18 02:08 Constitutional: Negative for fever, chills, and weight loss, Eyes: Negative for injury, tw4 pain, redness, and discharge, Cardiovascular: Negative for chest pain, palpitations, and edema, Respiratory: Negative for shortness of breath, cough, wheezing, and pleuritic chest pain, Abdomen/GI: Negative for abdominal pain, nausea, vomiting, diarrhea, and constipation, Back: Negative for injury and pain, Skin: Negative for injury, rash, and discoloration, Neuro: Negative for headache, weakness, numbness, tingling, and seizure. MS/extremity: Positive for erythema, warmth, of the right second toe, right third toe and Right second toenail. Exam: 02:08 Constitutional: This is a well developed, well nourished patient who is awake, alert, tw4 and in no acute distress. Head/Face: Normocephalic, atraumatic. Chest/axilla: Normal chest wall appearance and motion. Nontender with no deformity. No lesions are appreciated. Cardiovascular: Regular rate and rhythm with a normal S1 and S2. No gallops, murmurs, or rubs. Normal PMI, no JVD. No pulse deficits. Respiratory: Lungs have equal breath sounds bilaterally, clear to auscultation and percussion. No rales, rhonchi or wheezes noted. No increased work of breathing, no retractions or nasal flaring. Abdomen/GI: Soft, non-tender, with normal bowel sounds. No distension or tympany. No guarding or rebound. No evidence of tenderness throughout. Back: No spinal tenderness. No costovertebral tenderness. Full range of motion. Skin: Warm, dry with normal turgor. Normal color with no rashes, no lesions, and no evidence of cellulitis. Neuro: Awake and alert, GCS 15, oriented to person, place, time, and situation. Cranial nerves II-XII grossly intact. Motor strength 5/5 in all extremities. Sensory grossly intact. Cerebellar exam normal. Normal gait. :08 Musculoskeletal/extremity: Extremities: noted in the right second toe, right third toe and Right second toenail: erythema, pain, tenderness, There is no evidence of bite, decreased ROM, deformity, ecchymosis, laceration, puncture. Vital Signs: 05/17 18:27 BP 166 / 74; Pulse 75; Resp 18; Temp 98.0; Pulse Ox 100% ; Weight 59.87 kg; Height 5 ll1 ft. 4 in. (162.56 cm); Pain 10; 22:00 BP 180 / 78; Pulse 70; Resp 16; Pulse Ox 99% on R/A; wh 23:30 BP 173 / 67; Pulse 67; Resp 18; Pulse Ox 95% on R/A; Pain /; wh 05/18 00:30 BP 188 / 81; Pulse 70; Resp 18; Pulse Ox 97% on R/A; wh 01:30 BP 188 / 76; Pulse 74; Resp 18; Pulse Ox 100% on R/A; Pain 11/24; wh 01:45 BP 166 / 74; Pulse 76; Resp 18; Pulse Ox 100% ; wh 02:47 BP 160 / 71; Pulse 77; Resp 18; Pulse Ox 98% on R/A; Pain /10; wh 05/17 18:27 Body Mass Index 22.66 (59.87 kg, 162.56 cm) ll1 MDM: 05/17 20:14 Patient medically screened. tw4 05/18 02:08 Differential diagnosis: fracture. Data reviewed: vital signs, nurses notes. Data tw4 interpreted: Pulse oximetry: Interpretation: normal. Counseling: I had a detailed discussion with the patient and/or guardian regarding: the historical points, exam findings, and any diagnostic results supporting the discharge/admit diagnosis. Special discussion: I discussed with the patient/guardian in detail that at this point there is no indication for admission to the hospital. It is understood, however, that if the symptoms persist or worsen the patient needs to return immediately for re-evaluation. 05/17 20:31 Order name: Wound Culture tw4 05/17 20:31 Order name: Sed Rate; Complete Time: 23:24 tw4 05/17 23:25 Interpretation: Abnormal: SED 73. tw4 05/17 20:31 Order name: CPK; Complete Time: 23:24 tw4 05/17 23:24 Interpretation: Abnormal: CPK 22. tw4 05/17 20:31 Order name: Amylase, Serum; Complete Time: 23:24 tw4 05/17 23:54 Interpretation: Within normal limits: TESS 51. tw4 05/17 20:31 Order name: Basic Metabolic Panel; Complete Time: 23:24 tw4 05/17 23:56 Interpretation: Normal except: CRE 7.13; BUN 46; GLUC 137; GFR 6; CA 8.2. tw4 05/17 20:31 Order name: Blood Culture Adult (2) tw4 05/17 18:35 Order name: Foot Right 3 View XRAY kb 05/17 20:31 Order name: CBC with Diff; Complete Time: 23:24 tw4 05/17 23:25 Interpretation: Normal except: WBC 7.4; RBC 2.91; HGB 9.2; HCT 27.6; RDW 16.0; tw4 EOSINOPHIL % 5.6. 05/17 20:31 Order name: Lactate; Complete Time: 23:24 tw4 05/17 20:31 Order name: LFT's; Complete Time: 23:24 tw4 05/17 23:54 Interpretation: Normal except: A/G 0.5; ALB 2.6; GLOB 4.9; ALK 181; AST 38. tw4 05/17 20:31 Order name: Lipase; Complete Time: 23:24 tw4 05/17 20:31 Order name: Procalcitonin; Complete Time: 23:53 tw4 05/17 20:31 Order name: Protime (+inr); Complete Time: 23:24 tw4 05/17 20:31 Order name: Ptt, Activated; Complete Time: 23:24 tw4 05/17 20:31 Order name: Accucheck; Complete Time: 22:17 tw4 05/17 20:31 Order name: Cardiac monitoring; Complete Time: 22:17 tw4 05/17 20:31 Order name: IV Saline Lock - Large Bore; Complete Time: 22:17 tw4 05/17 20:31 Order name: Labs collected and sent; Complete Time: 22:17 tw4 05/17 20:31 Order name: O2 Per Protocol; Complete Time: 22:17 tw4 05/17 20:31 Order name: O2 Sat Monitoring; Complete Time: 22:17 tw4 05/17 23:25 Order name: CXR XRAY tw4 Administered Medications: 05/17 22:12 Drug: morphine 4 mg {Note: RASS 0.} Route: IVP; Site: right antecubital; 23:09 Follow up: Response: No adverse reaction; Pain is decreased; RASS: Alert and Calm (0) 22:14 Drug: Zofran (Ondansetron) 4 mg Route: IVP; Site: right antecubital; 23:09 Follow up: Response: No adverse reaction; Nausea is decreased 22:16 Drug: Zosyn 3.375 grams Route: IVPB; Infused Over: 60 mins; Site: right antecubital; 23:09 Follow up: Response: No adverse reaction; IV Status: Completed infusion 22:18 CANCELLED (Physician Discretion): Zosyn 2.25 grams IVPB once over 60 mins; (mix in NS tw4 100 mL) 23:08 Drug: vancoMYCIN 1 grams Route: IVPB; Infused Over: 2 hrs; Site: right antecubital; 05/18 01:26 Follow up: Response: No adverse reaction; IV Status: Completed infusion 05/17 23:27 Drug: fentaNYL (PF) 25 mcg {Note: RASS 0.} Route: IVP; Site: right antecubital; 05/18 01:26 Follow up: Response: No adverse reaction; Pain is decreased; RASS: Alert and Calm (0) 01:29 Drug: hydrALAZINE 10 mg Route: IV; Rate: bolus; Site: right antecubital; 01:49 Follow up: Response: No adverse reaction; Blood pressure is lowered; IV Status: Completed infusion 03:10 Drug: fentaNYL (PF) 25 mcg {Note: RASS 0.} Route: IVP; Site: right antecubital; 03:18 Follow up: Response: No adverse reaction; Pain is decreased; RASS: Alert and Calm (0) 03:12 Drug: Zofran (Ondansetron) 4 mg Route: IVP; Site: right antecubital; 03:18 Follow up: Response: No adverse reaction; Nausea is decreased Disposition: 05/18/20 00:07 Transfer ordered to [facility]. Diagnosis are Cellulitis of left lower limb, Chronic kidney disease, stage 5. - Reason for transfer: Higher level of care. - Accepting physician is Dr Green. - Condition is Stable. - Problem is new. - Symptoms are unchanged. Signatures: Dispatcher [employer] EDMS Cyndi Jewell Cristian Mcclure MD MD [facility] Kylie Feldman RN RN ll1 Corrections: (The following items were deleted from the chart) 05/17 18:33 18:27 Social history: Smoking status: Patient denies any tobacco usage or history of. 1 1 22:18 22:13 Zosyn 2.25 grams IVPB once over 60 mins; (mix in NS 100 mL) ordered. tw4 tw4 22:18 22:18 Zosyn 2.25 grams IVPB once over 60 mins; (mix in NS 100 mL) ordered. 4 tw4 23:57 23:25 Normal except: CRE 7.13; BUN 46; GLUC 137; GFR 6. 4 4 05/18 03:18 00:07 05/18/2020 00:07 Transfer ordered to [facility]. Diagnosis is Cellulitis of left lower limb; Chronic kidney disease, stage 5. Reason for transfer: Higher level of care. Accepting physician is Dr Green. Condition is Stable. Problem is new. Symptoms are unchanged. tw4
--- NOTE | 2020-05-18 00:07 | ER ---
Nurse's Notes [facility] Name: Archana Woo Age: 44 yrs Sex: Female : 1975 Arrival Date: 05/17/2020 Time: 18:26 Bed 15 Private MD: Diagnosis: Cellulitis of left lower limb;Chronic kidney disease, stage 5 Presentation: 05/17 18:27 Chief complaint: Patient states: Right foot 2nd digit pain, redness for 4 days. No ll1 fever at home. Had 1st digit amputated last month. Sent by home health RN for eval, possible IV antibiotics. Coronavirus screen: Client denies travel out of the [place] in the last 14 days. At this time, the client does not indicate any symptoms associated with coronavirus-19. Ebola Screen: Patient denies travel to an Ebola-affected area in the 21 days before illness onset. Initial Sepsis Screen: Does the patient meet any 2 criteria? No. Patient's initial sepsis screen is negative. Risk Assessment: Do you want to hurt yourself or someone else? Patient reports no desire to harm self or others. Onset of symptoms was May 13, 2020. 18:27 Method Of Arrival: Wheelchair ll1 18:27 Acuity: TARUN 3 ll1 20:30 Initial Sepsis Screen: Does the patient have a suspected source of infection? Yes: Skin wh breakdown/wound. 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 - Social history:: Smoking status: Patient reports the use of cigarette tobacco products, denies chronic smoking, but will smoke occasionally. Screenin:30 Abuse screen: Denies threats or abuse. Denies injuries from another. Nutritional wh screening: No deficits noted. Tuberculosis screening: No symptoms or risk factors identified. Fall Risk Secondary diagnosis (15 points) impaired mobility, CVA. Assessment: 20:25 General: Appears in no apparent distress. uncomfortable, Behavior is calm, cooperative. wh Pain: Complains of pain in right foot Pain does not radiate. Pain currently is 8 out of 10 on a pain scale. Quality of pain is described as aching, Pain began 2-3 days ago. Is intermittent. Neuro: Level of Consciousness is awake, alert, obeys commands, Oriented to person, place, time, situation. Cardiovascular: Heart tones S1 S2. Cardiovascular: Dialysis shunt: in the left arm. Respiratory: Airway is patent Respiratory effort is even, unlabored, Respiratory pattern is regular, symmetrical, Breath sounds are clear bilaterally. GI: Abdomen is flat, non-distended. : Reports Anuria. EENT: Reports blindness. Derm: Wound noted buttocks Other: rectal area. Musculoskeletal: Amputation of right first toe. 22:00 Reassessment: Patient appears in no apparent distress at this time. No changes from previously documented assessment. Patient and/or family updated on plan of care and expected duration. Pain level reassessed. Patient is alert, oriented x 3, equal unlabored respirations, skin warm/dry/pink. Unable to start IV with multiple attempts, Phlebo unsuccessful to draw blood, Charge Nurse Aware, awating for NAGI guided insertion. 22:30 Reassessment: NAGI guided Iv insertion by Monster Abreu RN succesful. 05/18 00:00 Reassessment: Patient appears in no apparent distress at this time. Patient and/or family updated on plan of care and expected duration. Pain level reassessed. Patient is alert, oriented x 3, equal unlabored respirations, skin warm/dry/pink. Updated POC need for transfer. 00:45 Reassessment: Report given to Geovani Gore RN. 01:30 Reassessment: Patient appears in no apparent distress at this time. Patient and/or family updated on plan of care and expected duration. Pain level reassessed. Patient is alert, oriented x 3, equal unlabored respirations, skin warm/dry/pink. 02:47 Reassessment: Patient appears in no apparent distress at this time. Patient and/or family updated on plan of care and expected duration. Pain level reassessed. Patient is alert, oriented x 3, equal unlabored respirations, skin warm/dry/pink. Vital Signs: 05/17 18:27 BP 166 / 74; Pulse 75; Resp 18; Temp 98.0; Pulse Ox 100% ; Weight 59.87 kg; Height 5 ll1 ft. 4 in. (162.56 cm); Pain 10/10; 22:00 BP 180 / 78; Pulse 70; Resp 16; Pulse Ox 99% on R/A; wh 23:30 BP 173 / 67; Pulse 67; Resp 18; Pulse Ox 95% on R/A; Pain 3/10; wh 05/18 00:30 BP 188 / 81; Pulse 70; Resp 18; Pulse Ox 97% on R/A; wh 01:30 BP 188 / 76; Pulse 74; Resp 18; Pulse Ox 100% on R/A; Pain 4/10; wh 01:45 BP 166 / 74; Pulse 76; Resp 18; Pulse Ox 100% ; wh 02:47 BP 160 / 71; Pulse 77; Resp 18; Pulse Ox 98% on R/A; Pain 2/10; wh 05/17 18:27 Body Mass Index 22.66 (59.87 kg, 162.56 cm) ll1 ED Course: 05/17 18:26 Patient arrived in ED. mr 18:27 Arm band placed on. ll1 18:33 Triage completed. ll1 19:53 Cristian Mcclure MD is Attending Physician. tw4 20:30 Patient has correct armband on for positive identification. Bed in low position. Call light in reach. Side rails up X 1. Pulse ox on. NIBP on. 20:33 Cyndi Jewell is Primary Nurse. 20:36 Foot Right 3 View XRAY In Process Unspecified. EDMS 21:00 Missed attempt(s): 20 gauge in right forearm. Bleeding controlled, band aid applied, catheter tip intact. 22:18 Inserted saline lock: 20 gauge in right antecubital area, using aseptic technique. Blood collected. BY Monster Abreu RN. 05/18 00:20 CXR XRAY In Process Unspecified. EDMS 02:48 No provider procedures requiring assistance completed. Patient transferred, IV remains in place. Administered Medications: 05/17 22:12 Drug: morphine 4 mg {Note: RASS 0.} Route: IVP; Site: right antecubital; 23:09 Follow up: Response: No adverse reaction; Pain is decreased; RASS: Alert and Calm (0) 22:14 Drug: Zofran (Ondansetron) 4 mg Route: IVP; Site: right antecubital; 23:09 Follow up: Response: No adverse reaction; Nausea is decreased 22:16 Drug: Zosyn 3.375 grams Route: IVPB; Infused Over: 60 mins; Site: right antecubital; 23:09 Follow up: Response: No adverse reaction; IV Status: Completed infusion 22:18 CANCELLED (Physician Discretion): Zosyn 2.25 grams IVPB once over 60 mins; (mix in NS tw4 100 mL) 23:08 Drug: vancoMYCIN 1 grams Route: IVPB; Infused Over: 2 hrs; Site: right antecubital; 05/18 01:26 Follow up: Response: No adverse reaction; IV Status: Completed infusion 05/17 23:27 Drug: fentaNYL (PF) 25 mcg {Note: RASS 0.} Route: IVP; Site: right antecubital; 05/18 01:26 Follow up: Response: No adverse reaction; Pain is decreased; RASS: Alert and Calm (0) 01:29 Drug: hydrALAZINE 10 mg Route: IV; Rate: bolus; Site: right antecubital; 01:49 Follow up: Response: No adverse reaction; Blood pressure is lowered; IV Status: Completed infusion 03:10 Drug: fentaNYL (PF) 25 mcg {Note: RASS 0.} Route: IVP; Site: right antecubital; 03:18 Follow up: Response: No adverse reaction; Pain is decreased; RASS: Alert and Calm (0) 03:12 Drug: Zofran (Ondansetron) 4 mg Route: IVP; Site: right antecubital; 03:18 Follow up: Response: No adverse reaction; Nausea is decreased Outcome: 00:07 ER care complete, transfer ordered by . tw4 02:49 Transferred by ground EMS Transfer form completed. X-rays sent w/ patient. Note: [facility], report given to [facility] RN 02:49 Condition: stable 02:49 Instructed on the need for transfer. 03:18 Patient left the ED. Signatures: Dispatcher [employer] EDSC HayCaro mr Jewell, Cyndi Cristian Mcclure MD MD tw4 Manoj Abreu RN RN rv Lewis, Lynsay, RN RN ll1 Corrections: (The following items were deleted from the chart) 05/17 18:33 18:27 Social history: Smoking status: Patient denies any tobacco usage or history of. ll1 ll1 05/18 01:38 10 20:25 Musculoskeletal: Amputation of right first toe and right second toe. [facility] 05/18 01:05/17 22:00 Reassessment: Patient appears in no apparent distress at this time. No wh changes from previously documented assessment. Patient and/or family updated on plan of care and expected duration. Pain level reassessed. Patient is alert, oriented x 3, equal unlabored respirations, skin warm/dry/pink. 05/18 01:05/17 23:00 Reassessment: Patient appears in no apparent distress at this time. Patient wh and/or family updated on plan of care and expected duration. Pain level reassessed. Patient is alert, oriented x 3, equal unlabored respirations, skin warm/dry/pink. Updated POC need for transfer 05/18 00:00 Reassessment: Patient appears in no apparent distress at this time. Patient wh and/or family updated on plan of care and expected duration. Pain level reassessed. Patient is alert, oriented x 3, equal unlabored respirations, skin warm/dry/pink. 05/17 23:00 Reassessment: Patient appears in no apparent distress at this time. Patient wh and/or family updated on plan of care and expected duration. Pain level reassessed. Patient is alert, oriented x 3, equal unlabored respirations, skin warm/dry/pink. Updated POC need for transfer 05/18 23:00 Reassessment: Patient appears in no apparent distress at this time. Patient wh and/or family updated on plan of care and expected duration. Pain level reassessed. Patient is alert, oriented x 3, equal unlabored respirations, skin warm/dry/pink. Updated POC need for transfer 05/18 02:49 05/17 22:18 Inserted rv
[2020-05-18] MEDS ORDERED: HYDRALAZINE HCL 20 MG/ML VIAL ONE (01:40)
[2020-05-18] MEDS ORDERED: FENTANYL CITR 100 MCG/2 ML ONE (03:20)
[2020-05-18] MEDS ORDERED: ONDANSETRON 4 MG/2 ML VIAL ONE (03:26)
[2020-05-18 03:33] VITALS: TEMP 98
[2020-05-18 03:43] VITALS: BP 160/71; O2SAT 98
--- NOTE | 2020-05-18 07:40 | RAD REPORT ---
EXAM DESCRIPTION: RAD - Chest Single View - 05/18/2020 12:20 am CLINICAL HISTORY: missed dialysis, shortness of breath COMPARISON: April 29 TECHNIQUE: AP portable chest image was obtained 05/18/2020 12:20 am . FINDINGS: Lung volumes are low. No significant volume overload or failure finding seen. Interstitial markings are accentuated by the shallow inspiration, not substantially different from the comparison . Heart and vasculature are normal. No measurable pleural effusion and no pneumothorax. No acute bony abnormality seen. No acute aortic findings suspected. IMPRESSION: No significant failure or volume overload findings. Interstitial pattern and central vasculature are similar or less prominent than the comparison study.
--- NOTE | 2020-05-18 11:57 | RAD REPORT ---
EXAM DESCRIPTION: RAD - Foot Right 3 View - 05/17/2020 10:23 pm CLINICAL HISTORY: PAIN Second toe pain and swelling. COMPARISON: Foot Right 3 View dated 04/23/2020 FINDINGS: Evidence of previous great toe amputation noted. Moderate soft tissue swelling is seen abo ut the forefoot with vascular calcification evident. The bones are moderately demineralized. Subtle c ortical irregularity involving the lateral aspect of the first metatarsal head is seen which could in dicate developing osteomyelitis.
--- OUTSIDE RECORDS SUMMARY | 2020-05-23 17:49 | XMS REPORT | Clinical Summary ---
:1975 Author Organization [facility] Address [address] [place] [address] Care Team Providers Name Role Phone Unavailable Primary Care Provider Unavailable Allergies No Known Allergies Medications Medication Sig Dispensed Refills Start Date End Date Status PARoxetine (PAXIL) Take 40 mg by mouth 0 Suspended 40 MG tablet every morning. HYDROcodone-acetamin Take 1 tablet by 0 Suspended ophen (NORCO mouth every 6 (six) 7.5-325) 7.5-325 mg hours as needed for per tablet Pain. ALPRAZolam (XANAX) 1 Take 1 mg by mouth 0 Suspended MG tablet every night as needed for Anxiety. busPIRone (BUSPAR) Take 10 mg by mouth 0 Suspended 10 MG tablet 3 (three) times daily. esomeprazole Take 40 mg by mouth 0 Suspended (NEXIUM) 40 MG daily. capsule fenofibrate (TRICOR) Take 48 mg by mouth 0 Suspended 48 MG tablet daily. levothyroxine Take 150 mcg by 0 Suspended (SYNTHROID, mouth Every morning LEVOTHROID) 150 MCG on an empty tablet stomach. magnesium oxide Take 400 mg by 0 Suspended (MAG-OX) 400 mg mouth daily. tablet prednisoLONE acetate 1 drop as needed. 0 Suspended (PRED FORTE) 1 % ophthalmic suspension multivitamin Take 1 tablet by 0 Suspended (MULTIVITAMIN) per mouth daily. tablet metoclopramide HCl Take 10 mg by mouth 0 Suspended (REGLAN) 10 MG 4 (four) times tablet daily as needed for Nausea. erythromycin base Take 250 mg by 0 Suspended (E-MYCIN) 250 MG mouth every 6 (six) tablet hours as needed. insulin glargine Inject 50 Units 10 mL 0 03/20/2017 Suspended (LANTUS) 100 unit/mL subcutaneously injection every morning Use as directed . cyclobenzaprine Take 2.5 mg by 0 06/01/2019 Suspended (FLEXERIL) 5 MG mouth 3 (three) tablet times daily. DULoxetine Take 30 mg by mouth 0 06/01/2019 Suspended (CYMBALTA) 30 MG daily. capsule famotidine (PEPCID) Take 20 mg by mouth 0 06/01/2019 Suspended 20 MG tablet daily. furosemide (LASIX) Take 80 mg by mouth 0 06/01/2019 Suspended 40 MG tablet 2 (two) times daily. gabapentin Take 100 mg by 0 06/01/2019 Ruth pended (NEURONTIN) 100 MG mouth every Thursday, capsule Thursday, Thursday. lisinopril Take 20 mg by mouth 0 06/01/2019 Suspended (PRINIVIL,ZESTRIL) 2 (two) times 20 MG tablet daily. traMADol (ULTRAM) 50 Take 50 mg by mouth 0 9 Suspended mg tablet daily as needed FOR PAIN. amLODIPine (NORVASC) Take 1 tablet (5 mg 30 tablet 0 9 08/18/19 5 MG tablet total) by mouth 20 daily for 30 days. aspirin 81 MG Take 1 tablet (81 30 tablet 0 07/19/2019 0 chewable tablet mg total) by mouth 20 daily for 30 days. atorvastatin Take 1 tablet (40 30 tablet 0 07/18/2019 08/17/19 (LIPITOR) 40 MG mg total) by mouth 20 tablet nightly for 30 days. Active Problems Problem Noted Date Cellulitis of second toe of right foot 05/18/2020 Left sided numbness 07/16/2019 ESRD on dialysis [...] Encounters Date Type Specialty Care Team Description 05/21/2020 Anesthesia Event Melchor Ayala MD 05/21/2020 Surgery Alfonso, DEBRIDEMENT/I&D ,WOUND Jada Thy, EXTREMITY LOW ER DPM 05/21/2020 Travel 05/18/2020 Hospital Encounter General Internal Peter, Cellu litis of second toe of right foot; Elis Mittal MD Blindness of both eyes; Nikolas Giles Type 2 diabet es mellitus with other specified complication, with long-term current use of insulin ([facility]); MD Zhao ESRD on dialysis ([facility]); Niranjan Gamez, Cerebrovascu lar 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 ([facility]); Gastroparesis; Acute idiopathi c gout involving toe of right foot; Stable prolifer ative diabetic retinopathy associated with diabetes mellitus due to underlying condition, unspecified laterality ([facility]); Other specified hypothyroidism 07/15/2019 - Hospital Encounter General Internal Stella, Blind ness of both eyes (Primary Dx); 07/18/2019 Elsi Bills MD Cerebrovascular accident (CVA) due to em bolism of left middle cerebral artery ([facility]); Seth, Type 2 diabetes mellitus with other specified complication, with long-term current use of insulin ([facility]); MD Arvin ESRD on dialysis ([facility]); Shania Schultz Left sided nu mbness; MD Graham Anxiety; Ann Lim, Diabetic nep hropathy associated with diabetes mellitus due to underlying condition ([facility]); Other specified hypothyroidism; Acute metabolic encephalopathy; DELMA (acute kidn ey injury) ([facility]) 07/15/2019 Travel 07/15/2019 Documentation [facility], Medicine MD Negar after 05/23/2019 Family History Medical History Relation Name Comments No Known Problem Daughter Hypertension Father Diabetes Mother Hypertension Mother Kidney disease Mother Relation Name Status Comments Daughter Father Mother Social History Tobacco Use Types Packs/Day Years Used Date Former Smoker 0.25 30 Quit: 05/18/20 20 Smokeless Tobacco: Never Used Tobacco Cessation: Counseling Given: No Alcohol Use Drinks/Week oz/Week Comments No Alcohol Habits Answer Date Recorded How often do you have a drink containing alcohol? Never 05/18/2020 How many drinks containing alcohol do you have on a typical Not asked day when you are drinking? How often do you have six or more drinks on one occasion? No t asked Sex Assigned at Date Recorded Not on file Job Start Date Occupation Industry Not on file Not on file Not on file Travel History Travel Start Travel End No recent travel history available. Last Filed Vital Signs Vital Sign Reading Time Taken Blood Pressure 154/69 05/23/2020 4:40 PM CDT Pulse 86 05/23/2020 4:40 PM CDT Temperature 36.4 C (97.6 F) 05/23/2020 4:28 PM CDT Respiratory Rate 17 05/23/2020 4:28 PM CDT Oxygen Saturation 98% 05/23/2020 4:28 PM CDT Inhaled Oxygen Concentration 21% 05/21/2020 7:52 PM CDT Weight 61.2 kg (135 lb) 05/18/2020 5:32 AM CDT Height 162.6 cm (5' 4.02") 05/18/2020 5:32 AM CDT Body Mass Index 23.16 05/18/2020 5:32 AM CDT Plan of Treatment Health Maintenance Due Date Last Done Comments DIABETIC EYE EXAM 1985 CERVICAL CANCER SCREENING PAP ONLY 10/18/1995 (Age 21-65) MEDICARE ANNUAL WELLNESS (YEAR 2 or 08/18/2017 FIRST YEAR if no IPPE) URINE MICROALBUMIN 03/17/2018 03/17/2017 PNEUMOCOCCAL VACCINE 2-64 YEARS AT 11/24/2019 11/23/2018 RISK (2 of 3 - PCV13) INFLUENZA VACCINE (#1) 2020 07/23/2013 HEMOGLOBIN A1C 08/18/2020 05/18/2020, 07/16/2019, 03/15/2017 DIABETIC FOOT EXAM 05/20/2021 05/20/2020 LIPID PANEL 07/16/2022 07/16/2019, 03/15/2017 Procedures The patient is currently admitted. The information in this section might not be complete until the patient is discharged. Procedure Name Priority Date/Time Associated Comments Diagnosis HEMODIALYSIS INPATIENT Routine 05/23/2020 11:33 AM CDT POCT-GLUCOSE METER Routine 05/23/2020 11:26 Resul ts for this AM CDT procedure are i n the results section. POCT-GLUCOSE METER Routine 05/23/2020 7:19 Resul ts for this AM CDT procedure are i n the results section. CBC W/PLT COUNT & AUTO Routine 05/23/2020 4:02 R esults for this DIFFERENTIAL AM CDT procedure are i n the results section. PHOSPHORUS Routine 05/23/2020 4:02 Results for this AM CDT procedure are i n the results section. BASIC METABOLIC PANEL Routine 05/23/2020 4:02 Re sults for this (7) AM CDT procedure are i n the results section. CBC W/PLT COUNT & AUTO Routine 05/23/2020 4:02 R esults for this DIFFERENTIAL AM CDT procedure are i n the results section. VANCOMYCIN LEVEL, Routine 05/23/2020 4:02 Result s for this RANDOM AM CDT procedure are i n the results section. POCT-GLUCOSE METER Routine 05/22/2020 8:40 Resul ts for this PM CDT procedure are i n the results section. TRANSFUSION SERVICE 05/22/2020 6:25 REPORT - SCAN PM CDT POCT-GLUCOSE METER Routine 05/22/2020 11:30 Resul ts for this AM CDT procedure are i n the results section. POCT-GLUCOSE METER Routine 05/22/2020 7:27 Resul ts for this AM CDT procedure are i n the results section. CBC W/PLT COUNT & AUTO Routine 05/22/2020 5:00 R esults for this DIFFERENTIAL AM CDT procedure are i n the results section. PHOSPHORUS Routine 05/22/2020 5:00 Results for this AM CDT procedure are i n the results section. BASIC METABOLIC PANEL Routine 05/22/2020 5:00 Re sults for this (7) AM CDT procedure are i n the results section. CBC W/PLT COUNT & AUTO Routine 05/22/2020 5:00 R esults for this DIFFERENTIAL AM CDT procedure are i n the results section. POCT-GLUCOSE METER Routine 05/21/2020 9:36 Resul ts for this PM CDT procedure are i n the results section. TISSUE EXAM AP Routine 05/21/2020 12:36 Results for this PM CDT procedure are i n the results section. POCT-GLUCOSE METER Routine 05/21/2020 12:28 Resul ts for this PM CDT procedure are i n the results section. SURGICALLY OBTAINED Routine 05/21/2020 12:18 CULTURE + GRAM STAIN PM CDT ANAEROBIC CULTURE Routine 05/21/2020 12:18 PM CDT SURGICALLY OBTAINED Routine 05/21/2020 12:16 CULTURE + GRAM STAIN PM CDT ANAEROBIC CULTURE Routine 05/21/2020 12:16 PM CDT POCT-GLUCOSE METER Routine 05/21/2020 7:44 Resul ts for this AM CDT procedure are i n the results section. ABORH, MANUAL Routine 05/21/2020 4:59 Results fo r this AM CDT procedure are i n the results section. CBC W/PLT COUNT & AUTO Routine 05/21/2020 3:52 R esults for this DIFFERENTIAL AM CDT procedure are i n the results section. TYPE AND SCREEN, Routine 05/21/2020 3:52 Results for this AUTOMATED AM CDT procedure are i n the results section. HCG, SERUM, STAT 05/21/2020 3:52 Results for this QUALITATIVE AM CDT procedure are i n the results section. APTT Routine 05/21/2020 3:52 Results for this AM CDT procedure are i n the results section. PROTHROMBIN TIME/INR Routine 05/21/2020 3:52 Res ults for this AM CDT procedure are i n the results section. IRON, TIBC, % SAT. Routine 05/21/2020 3:52 Resul ts for this (WITHOUT FERRITIN) AM CDT procedure are in the results section. VANCOMYCIN LEVEL, Routine 05/21/2020 3:52 Result s for this RANDOM AM CDT procedure are i n the results section. PHOSPHORUS Routine 05/21/2020 3:52 Results for this AM CDT procedure are i n the results section. MAGNESIUM Routine 05/21/2020 3:52 Results for this AM CDT procedure are i n the results section. BASIC METABOLIC PANEL Routine 05/21/2020 3:52 Re sults for this (7) AM CDT procedure are i n the results section. CBC W/PLT COUNT & AUTO Routine 05/21/2020 3:52 R esults for this DIFFERENTIAL AM CDT procedure are i n the results section. POCT-GLUCOSE METER Routine 05/20/2020 9:08 Resul ts for this PM CDT procedure are i n the results section. POCT-GLUCOSE METER Routine 05/20/2020 3:51 Resul ts for this PM CDT procedure are i n the results section. POCT-GLUCOSE METER Routine 05/20/2020 11:20 Resul ts for this AM CDT procedure are i n the results section. POCT-GLUCOSE METER Routine 05/20/2020 7:21 Resul ts for this AM CDT procedure are i n the results section. TSH/FREE T4 IF Routine 05/20/2020 6:19 Results f or this INDICATED AM CDT procedure are i n the results section. PHOSPHORUS Routine 05/20/2020 6:19 Results for this AM CDT procedure are i n the results section. MAGNESIUM Routine 05/20/2020 6:19 Results for this AM CDT procedure are i n the results section. BASIC METABOLIC PANEL Routine 05/20/2020 6:19 Re sults for this (7) AM CDT procedure are i n the results section. CBC W/PLT COUNT & AUTO Routine 05/20/2020 5:07 R esults for this DIFFERENTIAL AM CDT procedure are i n the results section. CBC W/PLT COUNT & AUTO Routine 05/20/2020 5:07 R esults for this DIFFERENTIAL AM CDT procedure are i n the results section. POCT-GLUCOSE METER Routine 05/19/2020 10:01 Resul ts for this PM CDT procedure are i n the results section. POCT-GLUCOSE METER Routine 05/19/2020 4:24 Resul ts for this PM CDT procedure are i n the results section. POCT-GLUCOSE METER Routine 05/19/2020 11:20 Resul ts for this AM CDT procedure are i n the results section. CBC W/PLT COUNT & AUTO Routine 05/19/2020 8:33 R esults for this DIFFERENTIAL AM CDT procedure are i n the results section. PHOSPHORUS Routine 05/19/2020 8:33 Results for this AM CDT procedure are i n the results section. MAGNESIUM Routine 05/19/2020 8:33 Results for this AM CDT procedure are i n the results section. BASIC METABOLIC PANEL Routine 05/19/2020 8:33 Re sults for this (7) AM CDT procedure are i n the results section. CBC W/PLT COUNT & AUTO Routine 05/19/2020 8:33 R esults for this DIFFERENTIAL AM CDT procedure are i n the results section. VANCOMYCIN LEVEL, Routine 05/19/2020 8:33 Result s for this RANDOM AM CDT procedure are i n the results section. POCT-GLUCOSE METER Routine 05/19/2020 7:41 Resul ts for this AM CDT procedure are i n the results section. POCT-GLUCOSE METER Routine 05/18/2020 8:50 Resul ts for this PM CDT procedure are i n the results section. HEPATITIS B SURFACE Routine 05/18/2020 5:37 Resu lts for this ANTIBODY PM CDT procedure are i n the results section. HEPATITIS B SURFACE Routine 05/18/2020 5:37 Resu lts for this ANTIGEN PM CDT procedure are i n the results section. POCT-GLUCOSE METER Routine 05/18/2020 4:31 Resul ts for this PM CDT procedure are i n the results section. POCT-GLUCOSE METER Routine 05/18/2020 12:43 Resul ts for this PM CDT procedure are i n the results section. MR LOWER EXTREMITY Routine 05/18/2020 11:54 Resul ts for this WITHOUT IV CONTRAST AM CDT procedur e are in RIGHT the results section. HEMODIALYSIS INPATIENT Routine 05/18/2020 10:28 AM CDT BLOOD CULTURE Routine 05/18/2020 8:55 Results fo r this AM CDT procedure are i n the results section. VANCOMYCIN LEVEL, STAT 05/18/2020 8:31 Result s for this TROUGH AM CDT procedure are i n the results section. CBC W/PLT COUNT & AUTO Routine 05/18/2020 8:25 R esults for this DIFFERENTIAL AM CDT procedure are i n the results section. C-REACTIVE PROTEIN Routine 05/18/2020 8:25 Resul ts for this AM CDT procedure are i n the results section. CBC W/PLT COUNT & AUTO Routine 05/18/2020 8:25 R esults for this DIFFERENTIAL AM CDT procedure are i n the results section. MAGNESIUM Routine 05/18/2020 8:25 Results for this AM CDT procedure are i n the results section. HEMOGLOBIN A1C Routine 05/18/2020 8:25 Results f or this AM CDT procedure are i n the results section. HEPATIC FUNCTION PANEL Routine 05/18/2020 8:25 R esults for this AM CDT procedure are i n the results section. BASIC METABOLIC PANEL Routine 05/18/2020 8:25 Re sults for this (7) AM CDT procedure are i n the results section. SARS-COV2/RT-PCR ([facility] Routine 05/18/2020 7:57 R esults for this & REF LABS) AM CDT procedure are i n the results section. POCT-GLUCOSE METER Routine 05/18/2020 7:26 Resul ts for this AM CDT procedure are i n the results section. XR CHEST 1 VIEW Routine 05/18/2020 5:55 Results for this PORTABLE/BEDSIDE AM CDT procedure a re in the results section. 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 POCT-GLUCOSE METER Routine 07/18/2019 8:22 Resul ts for this AM [employer] procedure are i n the results section. CBC W/PLT COUNT & AUTO Routine 07/18/2019 4:37 R esults for this DIFFERENTIAL AM [employer] procedure are i n the results section. CBC W/PLT COUNT & AUTO Routine 07/18/2019 4:37 R esults for this DIFFERENTIAL AM [employer] procedure are i n the results section. PROTHROMBIN TIME/INR Routine 07/18/2019 4:37 Res ults for this AM [employer] procedure are i n the results section. PHOSPHORUS Routine 07/18/2019 4:37 Results for this AM [employer] procedure are i n the results section. MAGNESIUM Routine 07/18/2019 4:37 Results for this AM [employer] procedure are i n the results section. BASIC METABOLIC PANEL Routine 07/18/2019 4:37 Re sults for this (7) AM [employer] procedure are i n the results section. POCT-GLUCOSE METER Routine 07/17/2019 8:56 Resul ts for this PM [employer] procedure are i n the results section. POCT-GLUCOSE METER Routine 07/17/2019 5:07 Resul ts for this PM [employer] procedure are i n the results section. POCT-GLUCOSE METER Routine 07/17/2019 12:28 Resul ts for this PM [employer] procedure are i n the results section. SCREEN, Routine 07/17/2019 11:36 Result s for this URINE AM [employer] procedure are i n the results section. POCT-GLUCOSE METER Routine 07/17/2019 7:18 Resul ts for this AM [employer] procedure are i n the results section. CBC W/PLT COUNT & AUTO Routine 07/17/2019 5:55 R esults for this DIFFERENTIAL AM [employer] procedure are i n the results section. CBC W/PLT COUNT & AUTO Routine 07/17/2019 5:55 R esults for this DIFFERENTIAL AM [employer] procedure are i n the results section. PROTHROMBIN TIME/INR Routine 07/17/2019 5:55 Res ults for this AM [employer] procedure are i n the results section. PHOSPHORUS Routine 07/17/2019 5:55 Results for this AM [employer] procedure are i n the results section. MAGNESIUM Routine 07/17/2019 5:55 Results for this AM [employer] procedure are i n the results section. BASIC METABOLIC PANEL Routine 07/17/2019 5:55 Re sults for this (7) AM [employer] procedure are i n the results section. MR BRAIN WITHOUT IV Routine 07/17/2019 12:54 Resu lts for this CONTRAST AM [employer] procedure are i n the results section. MRA NECK WITHOUT IV Routine 07/17/2019 12:54 Resu lts for this CONTRAST AM [employer] procedure are i n the results section. MRA HEAD WITHOUT IV Routine 07/17/2019 12:54 Resu lts for this CONTRAST AM [employer] procedure are i n the results section. ECHOCARDIOGRAM REPORT 07/16/2019 9:20 - SCAN PM [employer] POCT-GLUCOSE METER Routine 07/16/2019 9:03 Resul ts for this PM [employer] procedure are i n the results section. HEMODIALYSIS INPATIENT Routine 07/16/2019 5:23 R esults for this PM [employer] procedure are i n the results section. POCT-GLUCOSE METER Routine 07/16/2019 5:21 Resul ts for this PM [employer] procedure are i n the results section. HEPATITIS B SURFACE Routine 07/16/2019 1:41 Resu lts for this ANTIGEN PM [employer] procedure are i n the results section. POCT-GLUCOSE METER Routine 07/16/2019 1:01 Resul ts for this PM [employer] procedure are i n the results section. POCT-GLUCOSE METER Routine 07/16/2019 12:03 Resul ts for this PM [employer] procedure are i n the results section. 2D ECHO W/ DOPPLER Routine 07/16/2019 11:13 Resul ts for this (CW/PW/COLOR) AM [employer] procedure are in the results section. BASIC METABOLIC PANEL Routine 07/16/2019 8:40 Re sults for this (7) AM [employer] procedure are i n the results section. POCT-GLUCOSE METER Routine 07/16/2019 8:05 Resul ts for this AM [employer] procedure are i n the results section. ECG 12-LEAD STAT 07/16/2019 7:43 Results for this AM [employer] procedure are i n the results section. POCT-GLUCOSE METER Routine 07/16/2019 7:30 Resul ts for this AM [employer] procedure are i n the results section. XR CHEST 1 VIEW Routine 07/16/2019 7:04 Results for this PORTABLE/BEDSIDE AM [employer] procedure a re in the results section. POCT-GLUCOSE METER Routine 07/16/2019 5:21 Resul ts for this AM [employer] procedure are i n the results section. BASIC METABOLIC PANEL STAT 07/16/2019 5:14 Re sults for this (7) AM [employer] procedure are i n the results section. HEMOGLOBIN A1C Routine 07/16/2019 3:50 Results f or this AM [employer] procedure are i n the results section. CBC W/PLT COUNT & AUTO Routine 07/16/2019 3:49 R esults for this DIFFERENTIAL AM [employer] procedure are i n the results section. CBC W/PLT COUNT & AUTO Routine 07/16/2019 3:49 R esults for this DIFFERENTIAL AM [employer] procedure are i n the results section. LIPID PANEL Routine 07/16/2019 3:49 Results for this AM [employer] procedure are i n the results section. PHOSPHORUS Routine 07/16/2019 3:49 Results for this AM [employer] procedure are i n the results section. MAGNESIUM Routine 07/16/2019 3:49 Results for this AM [employer] procedure are i n the results section. HEPATIC FUNCTION PANEL Routine 07/16/2019 3:49 R esults for this AM [employer] procedure are i n the results section. BASIC METABOLIC PANEL Routine 07/16/2019 3:49 Re sults for this (7) AM [employer] procedure are i n the results section. HIV-1 ANTIGEN WITH Routine 07/16/2019 3:48 Resul ts for this HIV-1/2 ANTIBODY AM [employer] procedure a re in the results section. RPR Routine 07/16/2019 3:48 Results for this AM [employer] procedure are i n the results section. VITAMIN B12 AND FOLATE Routine 07/16/2019 3:48 R esults for this AM [employer] procedure are i n the results section. TSH/FREE T4 IF Routine 07/16/2019 3:48 Results f or this INDICATED AM [employer] procedure are i n the results section. PROTHROMBIN TIME/INR Routine 07/16/2019 3:48 Res ults for this AM [employer] procedure are i n the results section. POCT-GLUCOSE METER Routine 07/16/2019 3:34 Resul ts for this AM [employer] procedure are i n the results section. after 05/23/2019 Results POC-Glucose meter (05/23/2020 11:26 AM CDT)Only the most recent of33 results within the time period is included. POC-Glucose Meter 74Comment: : TESTED AT 70 - 110 mg/dL [facility] [address], [facility] [place] [facility] [id number]: Robotics Technician/Sheep Or Calf Grader ID = [id number] for Soheila Carson Specimen Blood Performing Organization Address City/State/Zipcode Phone Number [facility] [address] [place] [address] CENTER CBC with platelet count + automated diff (05/23/2020 4:02 AM CDT)Only the most recent of9 resultswithin the time period is included. WBC 6.1 4.0 - 10.0 K/L [facility] RBC 2.88 (L) 4.00 - 5.00 M/L [facility] Hemoglobin 8.6 (L) 12.0 - 15.5 GM/DL [facility] Hematocrit 27.8 (L) 36.0 - 46.0 % [facility] MCV 96.5 82.0 - 99.0 fL [facility] MCH 29.9 27.0 - 33.0 pg [facility] MCHC 30.9 (L) 32.0 - 36.0 GM/DL [facility] RDW 14.3 12.0 - 15.0 % [facility] Platelets 270 150 - 430 K/CU MM [facility] MPV 10.6 6.0 - 11.5 fL [facility] nRBC 0 0 - 0 /100 WBC [facility] % Neutros 59 % [facility] % Lymphs 23 % [facility] % Monos 11 % [facility] % Eos 6 % [facility] % Baso 1 % [facility] # Neutros 3.61 1.80 - 8.00 K/L [facility] # Lymphs 1.40 (L) 1.48 - 4.50 K/L [facility] # Monos 0.66 0.00 - 1.30 K/L [facility] # Eos 0.35 0.00 - 0.50 K/L [facility] # Baso 0.03 0.00 - 0.20 K/L [facility] Immature Granulocytes-Relative 0 0 - 0 % S [facility] Specimen Blood Performing Organization Address City/[facility]/Zipcode Phone Number [facility] [address] [place], [place] [address] Phosphorus (05/23/2020 4:02 AM CDT)Only the most recent of8 resultswithin the time period is included. Phosphorus 5.1 (H) 2.5 - 4.5 mg/dL [facility] Specimen Blood Narrative Performed At Robotics Technician ID - ADMIN [facility] Performing Organization Address [facility] Phone Number [facility] [address] [phone] Vancomycin level, random (05/23/2020 4:02 AM CDT)Only the most recent of3 resultswithin the time period is included. Vancomycin Rm 19.7 ug/mL [facility] Specimen Blood Narrative Performed At Reference Range: No Normals [facility] Robotics Technician ID - ADMIN Performing Organization Address [facility] [phone] Basic Metabolic Panel (05/23/2020 4:02 AM CDT)Only the most recent of11 results within the time period is included. Sodium 137 135 - 148 meq/L [facility] Potassium 4.3 3.6 - 5.5 meq/L [facility] ATORY Chloride 99 98 - 106 meq/L [facility] CO2 26 20 - 29 meq/L [facility] BUN 21 10 - 26 mg/dL [facility] Creatinine 5.18 (H) 0.50 - 1.20 mg/dL [facility] Glucose 112 (H) 70 - 110 mg/dL [facility] Calcium 8.5 8.5 - 10.5 mg/dL [facility] EGFR 9Comment: ESTIMATED GFR IS NOT mL/min/1.73 sq m [facility] ACCURATE CREATININE CLEARANCE IN PREDICTING GLOMERULAR FILTRATION RATE. ESTIMATED GFR IS NOT APPLICABLE FOR DIALYSIS PATIENTS. Specimen Blood Narrative Performed At Robotics Technician ID - ADMIN [facility] Performing Organization Address [facility] Cent[facility] Phone Number [facility] [address] [place], [place] [address] TRANSFUSION SERVICE REPORT - SCAN (05/22/2020 6:25 PM CDT) Narrative Performed At This result has an attachment that is no t available. Tissue Exam (05/21/2020 12:36 PM CDT) Case Report Surgical Pathology Report Case: [id number] [facility] Authorizing Provider:Jada Villegas DPM Collected: 05/21/2020 12:36 PM Ordering Location: [facility] Surg 5th FloorReceived:05/21/2020 12:49 PM Pathologist: Ann Meeks MD Specimen:Bone, right 1st metatarsal head bone biopsy DIAGNOSIS BONE, RIGHT FIRST METATARSAL HEAD, BIOPSY: [facility] - BONE WITH FOCAL FIBROSI S AND CHRONIC INFLAMMATION, CONSISTENT WITH CHRONIC OSTEOMYELITIS Signing Pathologist Direct Phone Line: CPT Code(s) 09285; 10077 [facility] CLINICAL HISTORY Right foot abscess [facility] SPECIMEN SOURCE Right 1st metatarsal head [facility] bone biopsy GROSS DESCRIPTION Specimen is received in [facility] formalin designated "bone" and consists of two marin-red bone fragments measuring 1 x 0.3 x 0.3 cm, submitted after decalcification in cassette A1. SQ/pl MICROSCOPIC DESCRIPTION Performed. [facility] Gross assessment was [facility] performed at [facility], Department of Pathology, [address] [place] [id number], Technical component was [facility] performed at [place], Department of Pathology, [address] [place] [address], Professional component [facility] was performed at [facility] Department of Pathology, [address] [place] [address], Specimen Tissue Narrative Performed At This result has an attachment that is no t available. Performing Organization Address City/State/Zipcode Phone Number [facility] [address] [place] [address] ABORH, manual (05/21/2020 4:59 AM CDT) ABO [facility] O [facility] Rh Factor POS [facility] Specimen Blood Performing Organization Address City/[facility]/Zipcode Phone Number [facility] [place] [facility] [address] [place] [address] [phone] [facility] Type and screen, automated (05/21/2020 3:52 AM CDT) ABO/RH AUTOMATED (BEAKER) O POSITIVE [facility] Ab Scrn NEGATIVE [facility] Specimen Blood Performing Organization Address City/[facility]/Zipcode Phone Number [facility] [place] [facility] [address] [place] [address] [phone] [facility] Iron, TIBC, % sat. (without ferritin) (05/21/2020 3:52 AM CDT) Iron 68.0 45.0 - 170.0 ug/dL [facility] TIBC 170 (L) 250 - 550 ug/dL [facility] Iron % Saturation 40 20 - 55 % [facility] Specimen Blood Narrative Performed At Robotics Technician ID - ADMIN [facility] Performing Organization Address [facility] Centercode Phone Number [facility] [address] [place], [place] [address] aPTT (05/21/2020 3:52 AM CDT) PTT 27.9 23.0 - 35.0 sec [facility] Specimen Blood Narrative Performed At Final Information (Auto Output) [facility] Performing Organization Address [facility]/Zipcode Phone Number [facility] [address] [place] [phone] Prothrombin time/INR (05/21/2020 3:52 AM CDT)Only the most recent of4 results within the time period is included. Protime 10.9 9.3 - 12.0 sec [facility] INR 1.00 <=5.90 [facility] Specimen Blood Narrative Performed At RECOMMENDED COUMADIN/WARFARIN INR THERAP Y RANGES [facility] STANDARD DOSE: 2.0 - 3.0 Includes: PROPHYLAXIS for venous thrombosis, systemic embolization; TREATMENT for venou s thrombosis and/or pulmonary embolus. HIGH RISK: Target INR is 2.5-3.5 for patients with mec hanical heart valves. Final Information (Auto Output) Final Information (Auto Output) Performing Organization Address City/[facility]/Zipcode Phone Number [facility] [address] [place], [place] [address] hCG, serum, qualitative (05/21/2020 3:52 AM CDT) Preg Test, Serum Negative [facility] Specimen Blood Performing Organization Address [facility] Centercode Phone Number [facility] [address] [place] [address] Magnesium (05/21/2020 3:52 AM CDT)Only the most recent of7 resultswithin the time period is included. Magnesium 2.0 1.5 - 3.0 mg/dL [facility] Specimen Blood Narrative Performed At Robotics Technician ID - ADMIN [facility] Performing Organization Address [facility] [place] [facility] Centercowa Phone Number [facility] [address] [place], [place] [phone] TSH/Free T4 If Indicated (05/20/2020 6:19 AM CDT)Only the most recent of2 resultswithin the time period is included. TSH 3.130 0.350 - 5.500 uIU/mL [facility] Specimen Blood Narrative Performed At Robotics Technician ID - ADMIN [facility] Performing Organization Address [facility] Number [facility] [address] [place], [place] [phone] Hepatitis B surface antibody (05/18/2020 5:37 PM CDT) Hep B S Ab 9.4 (H) <8.0 mIU/mL [facility] Specimen Blood Narrative Performed At Robotics Technician ID - JOEL [facility] Performing Organization Address [facility] Centercode Phone Number [facility] [address] [place] [address] CENTER Hepatitis B surface antigen (05/18/2020 5:37 PM CDT)Only the most recent of2 resultswithin the time period is included. HBsAg Screen Nonreactive Nonreactive [facility] Specimen Blood Narrative Performed At Robotics Technician ID - ADMIN [facility] Performing Organization Address City/State/Zipcode Phone Number [facility] [address] [facility] [place] [address] MR lower extremity without IV contrast right side (05/18/2020 11:54 AM CDT) Specimen Narrative Performed At FINAL REPORT RIS MRI of the right forefoot without intrav enous contrast History: Osteomyelitis suspected, diabet ic Comparison: Radiograph dated May 17, 2020, performed at an outside institution Technique: Multiplanar multisequence MRI of the right forefoot was performed withoutintravenous contras t Findings: Patient is status post amputation of the first phalanges. There is an apparent ulceration at the first toe sof t tissue stump, with a linear tract of subcutaneous fluid/edema that e xtends to the metatarsal head, concerning for infection although a discrete drainable collection is not identified. There is m ild patchy marrow edema in the first metatarsal head, as well as th e sesamoid bones, without definite cortical erosive change. There is also diffuse soft tissue edema in the right forefoot, with prominent subcutaneous edema dorsally. N o tenosynovitis. No evidence of acute fracture, or malalignment. No j oint effusion is identified. IMPRESSION: Status post amputation of the first phal anges. Diffuse soft tissue edema in the right f orefoot. There is an apparent ulceration at the first toe soft tissue stump, with a linear tract of subcutaneous fluid/edema that extends to becerra the first metatarsal head, concerning for infection, although a discrete drainable collection is not identified. Nonspecific patchy marrow edema in the f irst metatarsal head and the sesamoid bones, which could reflect reac tive change versus early infection, although no definite erosion is identified on the current study. Consider short interval imaging f ollow-up if clinically appropriate. Signed: Guanako Tyler MD Report Verified Date/Time:05/18/2020 15:44:11 Reading Location: [facility] Radiology Reading Room Procedure Note Interface, External Ris In - 05/18/2020 3:46 PM CDT FINAL REPORT MRI of the right forefoot without intrav enous contrast History: Osteomyelitis suspected, diabet ic Comparison: Radiograph dated May 17, 2020, performed at an outside institution Technique: Multiplanar multisequence MRI of the right forefoot was performed without intravenous contrast Findings: Patient is status post amputation of the first phalanges. There is an apparent ulceration at the first toe sof t tissue stump, with a linear tract of subcutaneous fluid/edema that e xtends to the metatarsal head, concerning for infection although a discrete drainable collection is not identified. There is m ild patchy marrow edema in the first metatarsal head, as well as th e sesamoid bones, without definite cortical erosive change. There is also diffuse soft tissue edema in the right forefoot, with prominent subcutaneous edema dorsally. N o tenosynovitis. No evidence of acute fracture, or malalignment. No j oint effusion is identified. IMPRESSION: Status post amputation of the first phal anges. Diffuse soft tissue edema in the right f orefoot. There is an apparent ulceration at the first toe soft tissue stump, with a linear tract of subcutaneous fluid/edema that extends to becerra the first metatarsal head, concerning for infection, although a discrete drainable collection is not identified. Nonspecific patchy marrow edema in the f irst metatarsal head and the sesamoid bones, which could reflect reac tive change versus early infection, although no definite erosion is identified on the current study. Consider short interval imaging f ollow-up if clinically appropriate. Signed: Guanako Tyler MD Report Verified Date/Time: 05/18/2020 1 5:44:11 Reading Location: [facility] Radiology Reading Room Performing Organization Address City/State/Zipcode Phone Number [facility] Blood Culture - Routine (Left Venipuncture) (05/18/2020 8:55 AM CDT) Result No growth in 5 days [facility] Specimen Blood Performing Organization Address City/[facility]/Zipcode Phone Number [facility] [address] [facility] [place] [phone] Vancomycin level, trough (05/18/2020 8:31 AM CDT) Vancomycin Tr 15.1 10.0 - 20.0 ug/mL [facility] Specimen Blood Narrative Performed At Robotics Technician ID - ADMIN [facility] Performing Organization Address [facility] [place] [facility] Centercode Phone Number [place] [phone] C-Reactive Protein (05/18/2020 8:25 AM CDT) CRP 1.17 (H) 0.00 - 0.50 mg/dL [facility] Specimen Blood Narrative Performed At Robotics Technician ID - ADMIN [facility] Performing Organization Address [facility]owa Phone Number [facility] [address] [place], [place] [phone] Hemoglobin A1c (05/18/2020 8:25 AM CDT)Only the most recent of2 resultswithin the time period is included. Hemoglobin A1C 9.4 (H) 4.3 - 6.1 % [facility] Specimen Blood Narrative Performed At Robotics Technician ID - ADMIN [facility] Performing Organization Address [facility] Phone Number [place] [phone] Hepatic function panel (05/18/2020 8:25 AM CDT)Only the most recent of2 results within the time period is included. Protein, Total 6.9Comment: Specimen 6.0 - 8.5 gm/dL [facility] slightly hemolyzed Albumin 3.1 (L)Comment: Specimen 3.5 - 5.0 g/dL [facility] slightly hemolyzed Total Bilirubin 0.5Comment: Specimen 0.1 - 1.2 mg/dL [facility] slightly hemolyzed Bilirubin, Direct 0.2Comment: Specimen 0.0 - 0.4 mg/dL [facility] slightly hemolyzed Alkaline Phosphatase 146 (H) 30 - 115 U/L [facility] AST 31Comment: Specimen 5 - 40 U/L [facility] slightly hemolyzed ALT 26Comment: Specimen 5 - 50 U/L [facility] slightly hemolyzed Specimen Blood Narrative Performed At Robotics Technician ID - ADMIN [facility] Performing Organization Address [facility] [place] [facility] Centercode Phone Number [facility] [address] [place] [address] 478 SARS-CoV2/RT-PCR (Asymptomatic ONLY) (05/18/2020 7:57 AM CDT) SARS-COV2/RT-PCR Negative Not Detected, Negative, [facility] See external report for MEDICAL CENTER linked test SARS-COV-2 PERFORMING LAB [facility] Specimen Other Narrative Performed At Negative result for this test determines that [facility] SARS-CoV-2 RNA was not present in the specimen above the Limit of Detection (LOD).However, Negative results do not preclude SARS-CoV-2 infection and should not be used as the sole basis for treatment or patient management decisions. Negative results must be combined with clinical observations, patient history, and epidemiological information. A false negative result may occur if a specimen is improperly collected, transported or handled.A false negative result should be considered if patient's recent exposures or clinical presentation indicate that COVID-19 (SARS-CoV-2) is likely and diagnostic tests for other causes of illness are negative.Re-testing should be considered in cases of suspected false negatives. The limit of detection for this assay is 800 copies/mL. This SARS CoV-2 test is a real-time RT-PCR test intended for the qualitative detection of nucleic acid from SARS-CoV-2 in a nasopharyngeal swab specimen collected from individuals suspected of COVID-19 by their healthcare provider. This test has not been Food and Drug Administration (FDA) cleared or approved.This is a modified version of an approved Emergency Use Authorization (EUA) and is in the process of review by the FDA. Once authorized by the FDA, the issued EUA will be effective until the declaration that circumstances exist justifying the authorization of the emergency use of in vitro diagnostic tests for detection and/or diagnosis of COVID-19 is terminated under Section 564(b)(2) of the Act or the EUA is revoked under Section 564(g) of the Act. Fact Sheet for Healthcare Providers: https://www.[employer] [place]/sites/default/files/pro duct/documents/Fact_Sheet_HC_Providers_Geoffrey_ RS-CoV-2.pdf Fact Sheet for Healthcare Patients: https://www.[employer] [place]/sites/default/files/pro duct/documents/Fact_Sheet_Patients_Lyra_SARS-C oV-2.pdf Performing Laboratory: [facility] [address] [place] [address] Performing Organization Address City/State/Zipcode Phone Number [facility] [address] [place] [address] CENTER XR chest 1 view portable / bedside (05/18/2020 5:55 AM CDT)Only the most recent of3 resultswithin the time period is included. Specimen Narrative Performed At FINAL REPORT [facility] CLINICAL HISTORY: shortness of breath TECHNIQUE: 1 view of the chest. COMPARISON: 07/18/2019 IMPRESSION: There are new, mildly prominent intersti tial opacities bilaterally. There is no lobar consolidation or signi ficant pleural fluid. There is no cardiomegaly. Surgical clips are s een in the medial left upper arm. Signed: Marychuy Bueno MD Report Verified Date/Time:05/18/2020 08:11:49 Reading Location: [employer] y Reading Room Procedure Note Interface, External Ris In - 05/18/2020 8:13 AM CDT FINAL REPORT CLINICAL HISTORY: shortness of breath TECHNIQUE: 1 view of the chest. COMPARISON: 07/18/2019 IMPRESSION: There are new, mildly prominent intersti tial opacities bilaterally. There is no lobar consolidation or signi ficant pleural fluid. There is no cardiomegaly. Surgical clips are s een in the medial left upper arm. Signed: Marychuy Bueno MD Report Verified Date/Time: 05/18/2020 0 8:11:49 Reading Location: [employer] y Reading Room Performing Organization Address City/State/Zipcode Phone Number ERNESTINA RIS EKG-SCANNED (07/21/2019 8:51 AM ART GLASS DESIGNER) Narrative Performed At This result has an attachment that is no t available. RHYTHM STRIP - SCAN (07/21/2019 8:50 AM ART GLASS DESIGNER) Narrative Performed At This result has an attachment that is no t available. Screen, urine (07/17/2019 11:36 AM ART GLASS DESIGNER) Preg Test, Ur Negative [facility] CENTER Specimen Urine Performing Organization Address City/State/Zipcode Phone Number [facility] [address] [place] [address] CENTER MR brain without IV contrast (07/17/2019 12:54 AM ART GLASS DESIGNER) Specimen Narrative Performed At FINAL REPORT Q[facility]Q MR, BRAIN, WITHOUT CONTRAST, MR, MRA, NE [...] External Ris In - 07/17/2019 4:57 AM ART GLASS DESIGNER FINAL REPORT MR, BRAIN, WITHOUT CONTRAST, MR, [...] 3:28:33 Performing Organization Address City/State/Zipcode Phone Number Q[facility]Q MR MRA neck without contrast (07/17/2019 12:54 AM ART GLASS DESIGNER) Specimen Narrative Performed At FINAL REPORT QUIQ MR, BRAIN, WITHOUT CONTRAST, MR, MRA, NE [...] External Ris In - 07/17/2019 4:57 AM ART GLASS DESIGNER FINAL REPORT MR, BRAIN, WITHOUT CONTRAST, MR, [...] 3:28:33 Performing Organization Address City/State/Zipcode Phone Number [facility] MR MRA head without contrast (07/17/2019 12:54 AM ART GLASS DESIGNER) Specimen Narrative Performed At FINAL REPORT QUIQ MR, BRAIN, WITHOUT CONTRAST, MR, MRA, NE [...] External Ris In - 07/17/2019 4:57 AM ART GLASS DESIGNER FINAL REPORT MR, BRAIN, WITHOUT CONTRAST, MR, [...] 3:28:33 Performing Organization Address City/State/Zipcode Phone Number [facility] ECHOCARDIOGRAM REPORT - SCAN (07/16/2019 9:20 PM ART GLASS DESIGNER) Narrative Performed At This result has an attachment that is no t available. HEMODIALYSIS INPATIENT (07/16/2019 5:23 PM ART GLASS DESIGNER) Narrative Performed At Jeff Mcduffie RN 06/195:24 [...] Results Component Value Date HEPBSAG Nonreactive 07/16/2019 2D Echo W/Doppler(CW/PW/Color) (07/16/2019 11:13 AM ART GLASS DESIGNER) Ejection Fraction [facility] ECHO HEAR TLAB [facility] Specimen Narrative Performed At Transthoracic Echocardiography Report (T TE) [facility] ECHO HEARTLAB [facility] Demographics Patient NameSOLIS, NORADate of Study07/16/2019 Gender Female Visit [id number] Race Unknown [id number] Number Date of 1975 ReferringMaoud [facility] Phys[facility] Age 43 year(s) SonographerDaja Arthur, [facility] Junior Account Manager Yanna McdonaldInterpreting Marcella Yanez MD [facility] Physician Procedure Type of Study TTE [...] Soliman's:67.82 ml LV Length: 8.61 cm LVESV Solmian's:24.12 ml LVEF Soliman's: 64.4 % LVEDVI: 33 [...] External Ris In - 07/16/2019 2:11 PM ART GLASS DESIGNER Transthoracic Echocardiography Report (TTE) Demographics Patient Name ARCHANA WOO Date of St udy 07/16/2019 Gender Female Visit Number [id number] Race Unknown [facility] r 7605 Number Date of 1975 Referring Arvin Ann Physician Age 43 year(s) Sonographe r Daja Arthur, [facility] Junior Account Manager Yanna Blanchardi MD Oscar Dupont Physician Procedure [...] mmHg D eceleration Time: 304.9 msec MV Jcak. Peak: Tissue Doppler E' Lateral Velocity: 0.12 [...] City/State/Zipcode Phone Number [facility] ECG 12 lead (07/16/2019 7:43 AM ART GLASS DESIGNER) Specimen Narrative Performed At Ventricular Rate 87 BPM [facility] Atrial Rate 87 BPM P-R Interval 136 ms QRS Duration 72 ms Q-T Interval 380 ms QTC Calculation(Bazett) 457 ms P Shepherd 68 degrees R Shepherd 17 degrees T Shepherd 65 degrees Normal sinus rhythm Normal ECG When compared with ECG of 19-MAR-2017 15 :16, QT has shortened Confirmed by MD BROCK, LAKSHMI ([id number]) on 07/18/2019 7:35:43 AM Procedure Note Interface, External Ris In - 07/18/2019 7:35 AM ART GLASS DESIGNER Ventricular Rate 87 BPM Atrial Rate 87 BPM P-R Interval 136 ms QRS Duration 72 ms Q-T Interval 380 ms QTC Calculation(Bazett) 457 ms P Shepherd 68 degrees R Shepherd 17 degrees T Shepherd 65 degrees Normal sinus rhythm Normal ECG When compared with ECG of 19-MAR-2017 15 :16, QT has shortened Confirmed by MD BROCK, LAKSHMI ([id number]) on 07/18/2019 7:35:43 AM Performing Organization Address [facility] Phone Number [facility] Lipid panel (07/16/2019 3:49 AM ART GLASS DESIGNER) Triglycerides 100 mg/dL [facility] Cholesterol 177 mg/dL [facility] HDL 48 mg/dL [facility] LDL Calculated 109 mg/dL [facility] Specimen Blood Narrative Performed At Triglyceride Reference Range: [facility] Low Risk <150 [id number] High Risk 200-499 Very High Risk>=500 Cholesterol Reference Range: Low Risk <200 [id number] High Risk>240 HDL Cholesterol Reference Range: Low Risk >=60 High Risk <40 LDL Cholesterol Reference Range: Optimal<100 Near Dsudwbs114-541 [id number] Paex395-716 Very High >=190 Performing Organization Address City/[facility]/Zipcode Phone Number [facility] [address] [place] [address] CENTER Vitamin B12 and Folate (07/16/2019 3:48 AM ART GLASS DESIGNER) Vitamin B12 525 213 - 816 pg/mL [facility] Folate 6.5 (L) >=7.0 ng/mL [facility] Specimen Blood Performing Organization Address City/[facility]/Zipcode Phone Number [facility] [address] [place] [address] READING HIV-1 Antigen with HIV-1/2 Antibody (07/16/2019 3:48 AM ART GLASS DESIGNER) HIV-1 Antigen with HIV 1&2 Nonreactive Nonreactive [facility] CENTER Specimen Blood Performing Organization Address City/State/Zipcode Phone Number [facility] [address] [place] [address] CENTER RPR (07/16/2019 3:48 AM ART GLASS DESIGNER) RPR Nonreactive Nonreactive [facility] Specimen Blood Performing Organization Address [facility]/Zipcode Phone Number [address] [address] CENTER after 05/23/2019 Insurance Payer Benefit Plan / Subscriber ID Type Phone Address Group [facility] MEDIC[facility] xxxxxxxxx MEDICARE MGD CARE HMO MEDICAID - MEDICAID [facility] COMM STAR xxxxxxxxx Medicaid Contracted MGD CARE PLAN Advance Directives For more information, please contact:[address] [phone] Code Status Date Activated Date Inactivated Comments Full Code 05/18/2020 5:13 AM This code status was determined by: Patient Full Code 07/16/2019 12:46 AM 07/18/2019 4:56 PM This code status was determined by: Patient Full Code 03/14/2017 8:30 PM 03/20/2017 12:11 PM This code status was determined by: Patient
--- OUTSIDE RECORDS SUMMARY | 2020-05-23 17:53 | XMS REPORT | Continuity of Care Document ---
:1975 Author Organization [facility] t Address [facility] [place] [address] Care Team Providers Name Role Phone Melchor Ayala MD Attending Clinician Naty BURTON, Joann Attending Clinician PETER Attending Clinician Unavailable Peter REYNOSO Attending Clinician Chan REYNOSO CJames Attending Clinician Vera REYNOSO Attending Clinician Violeta REYNOSO Attending Clinician Seth REYNOSO Attending Clinician Marion REYNOSO RJames Attending Clinician Raphael REYNOSO Attending Clinician VIOLETA Attending Clinician Unavailable LYN EDWARDS Attending Clinician Unavailable PETER Admitting Clinician Unavailable Graham SCHULTZ Admitting Clinician Unavailable LYN EDWARDS Admitting Clinician Unavailable Payers Payer Name Policy Policy Number Effective Expiration Source Type Date Date [facility] - xxxxxxxxx [facility] MEDICARE MGD CAREUNITED L ukes - MEDICARE HMOxxxxxxxxx Med [facility] MEDICAID - MEDICAID MGD xxxxxxxxx [facility] CARED COMM STAR [facility] - PLANxxxxxxxxxMedicaid Med ical Contracted Center Problems Condition Condition Condition Status Onset Resolution Last Treating Co mments Source Name Details Category Date Date Treatment Clinician Date Cellulitis Cellulitis Disease Active 2019-[address] of second of second 0 [facility] - toe of toe of 00:00: Medical right foot right foot 00 Ce nter Left sided Left sided Disease Active 2018-[address] numbness numbness 09-15 [facility] 00:[facility] Medical 00 Center ESRD on ESRD on Disease Active 2018-[address] [facility] dialysis dialysis 09-15 [facility] - 00:00: Medical [place] Proteinuri Proteinuri Disease Active [facility] a a 03-20 [facility] - 00:00: Medical 00 Center Gastropare Gastropare Disease Active [facility] sis sis 03-19 [facility] - 00:00: Medical 00 Center DELMA (acute DELMA (acute Disease Active [facility] kidney kidney 03-16 [facility] - injury) injury) 00:00: Medical 00 [place] Acute Acute Disease Active [facility] metabolic metabolic 03-16 [facility] - encephalop encephalop 00:00: Ri dical athy athy 00 Center Cerebrovas Cerebrovas Disease Active [facility] cular cular 03-15 [facility] - accident accident 00:00: Medica l (CVA) due (CVA) due 00 Cent er to to embolism 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 Hypothyroi Hypothyroi Disease Active [facility] dism dism 03-15 [facility] - 00:00: Medical 00 [place] Diabetes Diabetes Disease Active [facility] mellitus mellitus 03-15 [facility] - 00:[facility]: Medical 00 Center Depression Depression Disease Active [facility] 03-15 [facility] - 00:00: Medical 00 Center Anxiety Anxiety Disease Active [facility] 03-15 [facility] - 00:[facility]: Medical 00 Center GERD GERD Disease Active [facility] (gastroeso (gastroeso 03-15 Carolann kes - phageal phageal 00:00: Medical reflux reflux 00 Center disease) disease) COPD COPD Disease Active [facility] (chronic (chronic 03-15 [facility] - obstructiv obstructiv 00:00: Ri dical e e 00 Center pulmonary pulmonary disease) disease) Chronic Chronic Disease Active [facility] renal renal 03-15 [facility] - disease disease 00:00: Medical 00 Center Hyperlipid Hyperlipid Disease Active [facility] emia emia 03-15 [facility] - 00:00: [address] History of History of Disease Active [facility] thyroid thyroid 03-15 [facility] - cancer cancer 00:00: [address] Blind Blind Disease Active [facility] 03-15 [facility] - 00:00: Medical [address] [place] [address] Tobacco Tobacco Disease Active [facility] abuse abuse 03-15 [facility] - 00:00: [address] Diabetic Diabetic Disease Active [facility] retinopath retinopath 03-15 [facility] - y y 00:00: [address] Diabetic Diabetic Disease Active [facility] nephropath nephropath 03-15 [facility] - y y 00:00: [address] Allergies, Adverse Reactions, Alerts Allergy Allergy Status Severity Reaction(s) Onset Inactive Treating Comm ents Source Name Type Date Date Clinician No Known DA Active [facility]ie 08-22 [facility] 00:00: [address] Family History Family Member Diagnosis Comments Start Date Stop Date Source Natural daughter No Known Problem I [facility] Natural father Hypertension [facility] Natural mother Diabetes [facility] Natural mother Hypertension [facility] Natural mother Kidney disease [facility] Social History Social Habit Start Date Stop Date Quantity Comments Source History SDOH [facility] Alcohol Std Drinks [facility] Binge Medical [address] Sex Assigned At [facility] Cigarettes smoked 2020-05-21 2020-05-21 [facility] - current (pack per 00:00:00 00:00:00 [facility] Center day) - Reported Cigarette 2020-05-21 2020-05-21 [facility] St tanvir - pack-years 00:00:00 00:00:00 [facility] History SDOH 2020-05-18 2020-05-18 [address] [facility] - Alcohol Frequency 00:00:00 00:00:00 [facility] History of tobacco 2020-05-18 Current smoker [facility] - use 00:00:00 [facility] Smoking Status Start Date Stop Date Source Former smoker 2020-05-21 00:00:2020-05-21 00:00:[address] [facility] Medications Ordered Filled Start Stop Current Ordering Indication Dosage Frequency Signature Comments Components Source Medication Medication Date Date Medication? Clinician (SIG) Name Name amLODIPine 2018-08- No 5mg QD Take [address] (NORVASC) 5 208-18 tablet (5 [facility]ann kes - MG tablet [...] for 30 days. cyclobenzap 2018-08 Yes 2.5mg Q.03190884 Take 2.[address] rine 0-16 [id number] mg by [facility]ukes - (FLEXERIL) 00:00: 3D mouth 3 Medi ghassan 5 MG tablet 00 (three) Cente r times daily. DULoxetine 2018-08 Yes 30mg QD Take [address] (CYMBALTA) 0-16 by mouth [facility] - 30 MG 00:00: daily. Medical capsule 00 Center famotidine 2018-08 Yes 20mg QD Take 20 [...] as [facility] E acetate 7-30 needed. [facility] - (PRED 18:25: Medical FORTE) 1 % 59 Center ophthalmic suspension multivitami 2017 Yes 1{tbl} QD Take [address] n 7-30 tablet by Carolannkes - (MULTIVITAM 18:25: mouth Medic al IN) [...] Center tablet (six) hours as needed. HYDROcodone 2017 Yes 1{tbl} Take [address] -acetaminop 7-30 tablet by Elsie lemons (NORCO 18:25: mouth Medica l 7.5-325) 58 every 6 Center 7.5-325 mg (six) per tablet hours as needed for Pain. ALPRAZolam 2017 Yes 1mg Take [address] (XANAX) 1 7-30 by mouth [facility]ukes - MG tablet 18:25: every Medical 58 night as Center needed for Anxiety. busPIRone Yes 10mg Q.[id number] Take [address] (BUSPAR) 10 7-30 [id number] by mouth 3 [facility] - MG tablet 18:25: 3D (three) Medic al 58 times Center daily. esomeprazol 2017 Yes 40mg QD Take 40 mg CHI [...] Time Observation Value Comments Source Systolic blood 2020-05-23 16:40:00 154 mm[Hg] [facility] Diastolic blood 2020-05-23 16:40:00 69 mm[Hg] [facility] Heart rate 2020-05-23 16:40:00 86 /min [facility] Body temperature 2020-05-23 16:28:00 36.44 Mallory [facility] Respiratory rate 2020-05-23 16:28:00 17 /min [facility] Oxygen saturation in 2020-05-23 16:28:00 98 /min [facility] Arterial blood by Medical Ce nter Pulse oximetry Body height 2020-05-18 05:32:00 162.6 cm [facility] Body weight Measured 2020-05-18 05:32:00 61.236 kg [facility] BMI 2020-05-18 05:32:00 23.16 kg/m2 [facility] Procedures Procedure Date / Time Performing Clinician Source Performed HEMODIALYSIS INPATIENT 2020-05-23 11:33:43 Libby Gao [facility] POCT-GLUCOSE METER 2020-05-23 11:26:[address] [facility] POCT-GLUCOSE METER 2020-05-23 07:19:00 Nikolas Giles [facility] VANCOMYCIN LEVEL, RANDOM 2020-05-23 04:02:00 Mikel Tellez [facility] BASIC METABOLIC PANEL (7) 2020-05-23 04:02:00 Nikolas Giles [facility] PHOSPHORUS 2020-05-23 04:02:00 Nikolas Giles [facility] CBC W/PLT COUNT & AUTO 2020-05-23 04:02:00 Nikolas Giles [facility] POCT-GLUCOSE METER 2020-05-22 20:40:00 Nikolas Giles [facility] TRANSFUSION SERVICE REPORT 2020-05-22 18:25:34 ProviderFrancisco Cox [place] - - SCAN Scanning [facility] POCT-GLUCOSE METER 2020-05-22 11:30:00 Nikolas Giles [facility] POCT-GLUCOSE METER 2020-05-22 07:27:00 Nikolas Giles [facility] BASIC METABOLIC PANEL (7) 2020-05-22 05:00:00 [facility] PHOSPHORUS 2020-05-22 05:00:00 Nikolas Giles [facility] CBC W/PLT COUNT & AUTO 2020-05-22 05:00:00 [facility] POCT-GLUCOSE METER 2020-05-21 21:36:00 Nikolas Giles [facility] TISSUE EXAM 2020-05-21 12:36:00 Jada Alfonso [facility] POCT-GLUCOSE METER 2020-05-21 12:28:00 [facility] ANAEROBIC CULTURE 2020-05-21 12:18:47 Jada Alfonso [facility] SURGICALLY OBTAINED 2020-05-21 12:18:47 Jada Alfonso [facility] - CULTURE + GRAM STAIN Medical [address] [facility] ANAEROBIC CULTURE 2020-05-21 12:16:02 Jada Alfonso [facility] SURGICALLY OBTAINED 2020-05-21 12:16:02 Jada Alfonso Thy I [facility] - CULTURE + GRAM STAIN Medical [address] [facility] POCT-GLUCOSE METER 2020-05-21 07:44:00 Chan, Nikolas Churchill [facility] ABORH, MANUAL 2020-05-21 04:59:00 ConstantinoAnn [facility] BASIC METABOLIC PANEL (7) 2020-05-21 03:52:00 [facility] Nikolas Churchill [facility] MAGNESIUM 2020-05-21 03:52:00 [facility] PHOSPHORUS 2020-05-21 03:52:00 [facility] VANCOMYCIN LEVEL, RANDOM 2020-05-21 03:52:00 Salvatore Wong [facility] IRON, TIBC, % SAT. 2020-05-21 03:52:00 LisetTravis [facility] (WITHOUT FERRITIN) [facility] r PROTHROMBIN TIME/INR 2020-05-21 03:52:00 [facility], Nikolas Churchill [facility] APTT 2020-05-21 03:52:00 [facility], Nikolas Churchill [facility] HCG, SERUM, QUALITATIVE 2020-05-21 03:52:00 Melchor Ayala [facility] TYPE AND SCREEN, AUTOMATED 2020-05-21 03:52:00 [facility] Nikolas Churchill [facility] CBC W/PLT COUNT & AUTO 2020-05-21 03:52:00 [facility] POCT-GLUCOSE METER 2020-05-20 21:08:00 [facility] POCT-GLUCOSE METER 2020-05-20 15:51:00 [facility] POCT-GLUCOSE METER 2020-05-20 11:20:00 [facility] POCT-GLUCOSE METER 2020-05-20 07:21:00 [facility] BASIC METABOLIC PANEL (7) 2020-05-20 06:19:00 Nikolas Giles [facility] MAGNESIUM 2020-05-20 06:19:00 Nikolas Giles [facility] PHOSPHORUS 2020-05-20 06:19:00 Nikolas Giles [facility] TSH/FREE T4 IF INDICATED 2020-05-20 06:19:00 Nikolas Giles [facility] CBC W/PLT COUNT & AUTO 2020-05-20 05:07:00 [facility], Nikolas Churchill [facility] POCT-GLUCOSE METER 2020-05-19 22:01:00 [facility] POCT-GLUCOSE METER 2020-05-19 16:24:00 [facility] POCT-GLUCOSE METER 2020-05-19 11:20:00 Nikolas Giles [facility] VANCOMYCIN LEVEL, RANDOM 2020-05-19 08:33:00 Jayleen Santana [facility] BASIC METABOLIC PANEL (7) 2020-05-19 08:33:00 Nikolas Giles [facility] MAGNESIUM 2020-05-19 08:33:00 [facility] PHOSPHORUS 2020-05-19 08:33:00 Nikolas Giles [facility] CBC W/PLT COUNT & AUTO 2020-05-19 08:33:00 Nikolas Giles [facility] POCT-GLUCOSE METER 2020-05-19 07:41:00 ShiehNikolas [facility] POCT-GLUCOSE METER 2020-05-18 20:50:00 Nikolas Giles [facility] HEPATITIS B SURFACE 2020-05-18 17:37:00 Travis [facility]ins [facility] HEPATITIS B SURFACE 2020-05-18 17:37:00 Travis Hutchins [facility] - ANTIBODY [facility] POCT-GLUCOSE METER 2020-05-18 16:31:00 Nikolas Giles [facility] POCT-GLUCOSE METER 2020-05-18 12:43:00 Nikolas Giles [facility] MR LOWER EXTREMITY WITHOUT 2020-05-18 11:54:00 Latosha Green [facility] IV CONTRAST RIGHT [facility] Center HEMODIALYSIS INPATIENT 2020-05-18 10:28:35 Travis Hutchins [facility] BLOOD CULTURE 2020-05-18 08:55:00 [facility] VANCOMYCIN LEVEL, TROUGH 2020-05-18 08:31:00 Jayleen Santana [facility] BASIC METABOLIC PANEL (7) 2020-05-18 08:25:00 [facility] HEPATIC FUNCTION PANEL 2020-05-18 08:25:00 [facility] HEMOGLOBIN A1C 2020-05-18 08:25:00 [facility] MAGNESIUM 2020-05-18 08:25:00 [facility] C-REACTIVE PROTEIN 2020-05-18 08:25:00 [facility] CBC W/PLT COUNT & AUTO 2020-05-18 08:25:00 Peter, [facility] SARS-COV2/RT-PCR ([facility] & 2020-05-18 07:57:00 Peter [facility] - REF LABS) [facility] POCT-GLUCOSE METER 2020-05-18 07:26:00 Nikolas Giles [facility] XR CHEST 1 VIEW 2020-05-18 05:55:00 Peter [facility] PORTABLE/BEDSIDE Medical Center REPORT OF PROCEDURE - 2019-07-21 08:51:04 Provider, Default [facility] ENDOSCOPY SCAN Scanning [facility] RHYTHM STRIP - SCAN 2019-07-21 08:50:54 Provider, Default [facility] Scanning [facility] XR CHEST 1 VIEW 2019-07-18 11:09:00 Ann Lim [facility]/BEDSIDE [facility] POCT-GLUCOSE METER 2019-07-18 08:22:00 Lim [facility] BASIC METABOLIC PANEL (7) 2019-07-18 04:37:00 [facility] MAGNESIUM 2019-07-18 04:37:00 [facility] PHOSPHORUS 2019-07-18 04:37:00 [facility] PROTHROMBIN TIME/INR 2019-07-18 04:37:00 [facility] CBC W/PLT COUNT & AUTO 2019-07-18 04:37:00 [facility] POCT-GLUCOSE METER 2019-07-17 20:56:00 Shania Schultz [facility] POCT-GLUCOSE METER 2019-07-17 17:07:00 [facility] POCT-GLUCOSE METER 2019-07-17 12:28:00 [facility], [facility]INE 2019-07-17 11:36:00 Ann Cook [facility] POCT-GLUCOSE METER 2019-07-17 07:18:00 [facility] BASIC METABOLIC PANEL (7) 2019-07-17 05:55:00 [facility] MAGNESIUM 2019-07-17 05:55:00 [facility] PHOSPHORUS 2019-07-17 05:55:00 [facility] PROTHROMBIN TIME/INR 2019-07-17 05:55:00 [facility] CBC W/PLT COUNT & AUTO 2019-07-17 05:55:00 [facility] MRA HEAD WITHOUT IV 2019-07-17 00:54:00 Allahham, Mahmoud [facility] MRA NECK WITHOUT IV 2019-07-17 00:54:[address] [facility] MR BRAIN WITHOUT IV 2019-07-17 00:54:[address] [facility] ECHOCARDIOGRAM REPORT - 2019-07-16 21:20:18 Provider, Default [facility] POCT-GLUCOSE METER 2019-07-16 21:03:00 Shania Schultz [facility] HEMODIALYSIS INPATIENT 2019-07-16 17:23:31 Ashwin Cole [facility] POCT-GLUCOSE METER 2019-07-16 17:21:00 Shania Schultz [facility] HEPATITIS B SURFACE 2019-07-16 13:41:00 Ashwin Cole [facility] POCT-GLUCOSE METER 2019-07-16 13:01:00 Shania Schultz [facility] POCT-GLUCOSE METER 2019-07-16 12:03:00 Shania Schultz [facility] 2D ECHO W/ DOPPLER 2019-07-16 11:13:59 [facility] (CW/PW/COLOR) [facility] BASIC METABOLIC PANEL (7) 2019-07-16 08:40:00 [facility] POCT-GLUCOSE METER 2019-07-16 08:05:00 Shania Schultz [facility] ECG 12-LEAD 2019-07-16 07:43:10 [facility] POCT-GLUCOSE METER 2019-07-16 07:30:00 Shania Schultz [facility] XR CHEST 1 VIEW 2019-07-16 07:04:00 [facility] PORTABLE/BEDSIDE Medical [place] POCT-GLUCOSE METER 2019-07-16 05:21:00 [facility] BASIC METABOLIC PANEL (7) 2019-07-16 05:14:00 [facility] HEMOGLOBIN A1C 2019-07-16 03:50:00 [facility] BASIC METABOLIC PANEL (7) 2019-07-16 03:49:00 [facility] HEPATIC FUNCTION PANEL 2019-07-16 03:49:00 [facility] MAGNESIUM 2019-07-16 03:49:00 [facility] PHOSPHORUS 2019-07-16 03:49:00 [facility] LIPID PANEL 2019-07-16 03:49:00 [facility] CBC W/PLT COUNT & AUTO 2019-07-16 03:49:00 [facility] PROTHROMBIN TIME/INR 2019-07-16 03:48:00 [facility] TSH/FREE T4 IF INDICATED 2019-07-16 03:48:00 [facility] VITAMIN B12 AND FOLATE 2019-07-16 03:48:00 [facility] RPR 2019-07-16 03:48:00 [facility] HIV-1 ANTIGEN WITH HIV-1/2 2019-07-16 03:48:00 [facility] POCT-GLUCOSE METER 2019-07-16 03:34:00 [facility] [id number] 2019-05-18 00:00:00 ENCPL [id number] 2019-05-18 00:00:00 ENCPL [id number] 2019-05-18 00:00:00 ENCPL [id number] 2019-05-18 00:00:00 ENCPL Plan of Care Planned Activity Planned Date Details Comments Source Future Scheduled 2022-07-16 Lipid panel [facility] s Test 00:00:00 (procedure) [code = Medical Center 68059801] Future Scheduled 2021-05-[address] [facility] - Test 00:00:00 examination Medical Center (regime/therapy) [code = 183773061] Future Scheduled 2020-08-[address] Carol[facility] kes - Test 00:00:00 measurement Medical Center (procedure) [code = 23982069] Future Scheduled 2020-04-17 INFLUENZA VACCINE (#1) [facility] Test 00:00:00 [code = INFLUENZA Medical Ce nter VACCINE (#1)] Future Scheduled 2019-11-[address] [facility] - Test 00:00:00 2-64 YEARS AT RISK (2 Medica l Center of 3 - PCV13) [code = PNEUMOCOCCAL VACCINE 2-64 YEARS AT RISK (2 of 3 - PCV13)] Future Scheduled 2018-03-17 Urine screening [facility] - Test 00:00:00 protein (procedure) Medical Center [code = 541111401] Future Scheduled 2017-08-[address] [facility] - Test 00:00:00 WELLNESS (YEAR 2 or Medical Center FIRST YEAR if no IPPE) [code = MEDICARE ANNUAL WELLNESS (YEAR 2 or FIRST YEAR if no IPPE)] Future Scheduled 1995-10-[address] [facility] - Test 00:00:00 [facility] [place] cervix (procedure) [code = 499593301] Future Scheduled 1984 DIABETIC EYE EXAM [facility] - Test 00:00:00 [code = DIABETIC EYE Medical Center EXAM] Encounters Start End Encounter Admission Attending Care Care Encounter Source Date/Time Date/Time Type Type Clinicians Facility Department ID 2019-04-12 Inpatient [facility] [address] [facility] W 13:57:46 Results Test Description Test Time Test Comments Results Result Comments Source Blood Culture - Routine (Left Venipuncture) 2020-05-23 13:00 :00 Test Item Value Reference Range Interpretation Comme nts Result (test code = 6463-4) No growth in 5 days [facility] [id number] 13:00:00 Test Item Value Reference Range Interpretation Comments CULTURE (BEAKER) (test No growth in 5 days code = 1095) POC-Glucose [id number] 11:38:00 Test Item Value Reference Range Interpretation Comments POC-Glucose Meter (test 74 mg/dL 70-110 : TE STED AT [facility] code = 1538) [address], [facility] [address]: Associate Field Service Engineer/Techni tammy ID = [id number] for Soheila Carson Lab Interpretation (test Normal code = 01703-6) [facility]SE [id number] 11:38:00 Test Item Value Reference Range Interpretation Comments POC-GLUCOSE METER 74 mg/dL 70-110 : TESTED A T [facility] [address] (BEAKER) (test code = [address]) [facility] [address]: Associate Field Service Engineer/Techni tammy ID = [id number] for Soheila Cheatham POCT-GLUCOSE [id number] 07:31:00 Test Item Value Reference Range Interpretation Comments POC-GLUCOSE METER 104 mg/dL 70-110 : TESTED A T [facility] [address] (BEAKER) (test code [address], = 1538) [place] [address]: Associate Field Service Engineer/Techni tammy ID = [id number] for Bandar Cheathamnice Basic Metabolic [id number] 05:25:00 Test Item Value Reference Range Interpretation Comments Sodium (test code = 137 meq/L 563-933 3303-2) Potassium (test code = 4.3 meq/L 3.6-5.5 2823-3) Chloride (test code = 99 meq/L 98-106 2075-0) CO2 (test code = 26 meq/L 20-29 2028-9) BUN (test code = 21 mg/dL 10-26 3094-0) Creatinine (test code 5.18 mg/dL 0.5-1.2 H = 2160-0) Glucose (test code = 112 mg/dL 70-110 H 2345-7) Calcium (test code = 8.5 mg/dL 8.5-10.5 21246-5) EGFR (test code = 9 mL/min/1.73 [place] [address]-9) NOT ACCURATE CREATININE CLEARANCE IN PREDICTING GLOMERULAR FILTRATION RATE . ESTIMATED GFR I S NOT APPLICABLE FOR DIALYSIS PATIENTS. YAKELIN (test code = YAKELIN) Associate Field Service Engineer ID - ADMIN Lab Interpretation Abnormal (test code = 43505-7) [facility] MET[facility]OLIC [id number] 05:25:00 Test Item Value Reference Range Interpretation Comments SODIUM (BEAKER) 137 meq/L 135-148 (test code = 381) POTASSIUM (BEAKER) 4.3 meq/L 3.6-5.5 (test code = 379) CHLORIDE (BEAKER) 99 meq/L 98-106 (test code = 382) CO2 (BEAKER) (test 26 meq/L 20-29 code = 355) BLOOD UREA NITROGEN 21 mg/dL 10-26 (BEAKER) (test code = 354) CREATININE (BEAKER) 5.18 mg/dL 0.50-1.20 H (test code = 358) GLUCOSE RANDOM 112 mg/dL 70-110 H (BEAKER) (test code = 652) CALCIUM (BEAKER) 8.5 mg/dL 8.5-10.5 (test code = 697) EGFR (BEAKER) (test 9 mL/min/1.73 ESTIMAT ED GFR IS code = 1092) sq m NOT ACCURATE CREATININE CLEARANCE IN PREDICTING GLOMERULAR FILTRATION RATE . ESTIMATED GFR I S NOT APPLICABLE FOR DIALYSIS PATIEN TS. Associate Field Service Engineer ID - [id number] 05:21:00 Test Item Value Reference Range Interpretation Comments Phosphorus (test code = 5.1 mg/dL 2.5-4.5 H 2777-1) YAKELIN (test code = YAKELIN) Associate Field Service Engineer ID - ADMIN Lab Interpretation (test Abnormal code = 46892-8) [facility]PHOS[facility]US2020-10-07 05:21:00 Test Item Value Reference Range Interpretation Comments PHOSPHORUS (BEAKER) (test code = 5.1 mg/dL 2.5-4.5 H 604) Associate Field Service Engineer ID - ADMINVancomycin level, [id number] 05:20:00 Test Item Value Reference Range Interpretation Comments Vancomycin Rm (test 19.7 ug/mL code = 10349-4) YAKELIN (test code = Reference Range: No YAKELIN) NormalsOperator ID - ADMIN [facility] CenterVANCOMYCIN LEVEL, [id number] 05:20:00 Test Item Value Reference Range Interpretation Comments VANCOMYCIN RANDOM (BEAKER) (test 19.7 ug/mL code = 523) Reference Range: No NormalsOperator ID - ADMINCBC with platelet count + automated [id number] 05:10:00 Test Item Value Reference Range Interpretation Comments WBC (test code = 6690-2) 6.1 4.0- 10.0 K/L RBC (test code = 789-8) 2.88 4.00- 5.00 M/L L MCHC (test code = 786-4) 30.9 32.0- 36.0 GM/DL L Hematocrit (test code = 4544-3) 27.8 % 36-46 L MCV (test code = 787-2) 96.5 fL 82-99 MCH (test code = 785-6) 29.9 pg 27-33 RDW (test code = 788-0) 14.3 % 12-15 Platelets (test code = 777-3) 270 150- 430 K/CU MM MPV (test code = 42389-8) 10.6 fL 6-11.5 nRBC (test code = 413) 0 0- 0 /100 WBC % Neutros (test code = 429) 59 % % Lymphs (test code = 430) 23 % % Monos (test code = 431) 11 % % Eos (test code = 432) 6 % % Baso (test code = 437) 1 % # Neutros (test code = 670) 3.61 1.80- 8.00 K/L # Lymphs (test code = 414) 1.40 1.48- 4.50 K/L L # Monos (test code = 415) 0.66 0.00- 1.30 K/L # Eos (test code = 416) 0.35 0.00- 0.50 K/L # Baso (test code = 417) 0.03 0.00- 0.20 K/L Immature Granulocytes-Relative 0 % 0-0 (test code = 2801) Lab Interpretation (test code = Abnormal 65190-2) [facility] [id number] 05:10:00 Test Item Value Reference Range Interpretation Comments WHITE BLOOD CELL COUNT (BEAKER) 6.1 K/ L 4.0-10.0 (test code = 775) RED BLOOD CELL COUNT (BEAKER) 2.88 M/ L 4.00-5.00 L (test code = 761) HEMOGLOBIN (BEAKER) (test code = 8.6 GM/DL 12.0-15.5 L 410) HEMATOCRIT (BEAKER) (test code = 27.8 % 36.0-46.0 L 411) MEAN CORPUSCULAR VOLUME (BEAKER) 96.5 fL 82.0-99.0 (test code = 753) MEAN CORPUSCULAR HEMOGLOBIN 29.9 pg 27.0-33.0 (BEAKER) (test code = 751) MEAN CORPUSCULAR HEMOGLOBIN CONC 30.9 GM/DL 32.0-36.0 L (BEAKER) (test code = 752) RED CELL DISTRIBUTION WIDTH 14.3 % 12.0-15.0 (BEAKER) (test code = 412) PLATELET COUNT (BEAKER) (test 270 K/CU MM 150-430 code = 756) MEAN PLATELET VOLUME (BEAKER) 10.6 fL 6.0-11.5 (test code = 754) NUCLEATED RED BLOOD CELLS 0 /100 WBC 0-0 (BEAKER) (test code = 413) NEUTROPHILS RELATIVE PERCENT 59 % (BEAKER) (test code = 429) LYMPHOCYTES RELATIVE PERCENT 23 % (BEAKER) (test code = 430) MONOCYTES RELATIVE PERCENT 11 % (BEAKER) (test code = 431) EOSINOPHILS RELATIVE PERCENT 6 % (BEAKER) (test code = 432) BASOPHILS RELATIVE PERCENT 1 % (BEAKER) (test code = 437) NEUTROPHILS ABSOLUTE COUNT 3.61 K/ L 1.80-8.00 (BEAKER) (test code = 670) LYMPHOCYTES ABSOLUTE COUNT 1.40 K/ L 1.48-4.50 L (BEAKER) (test code = 414) MONOCYTES ABSOLUTE COUNT (BEAKER) 0.66 K/ L 0.00-1.30 (test code = 415) EOSINOPHILS ABSOLUTE COUNT 0.35 K/ L 0.00-0.50 (BEAKER) (test code = 416) BASOPHILS ABSOLUTE COUNT (BEAKER) 0.03 K/ L 0.00-0.20 (test code = 417) IMMATURE GRANULOCYTES-RELATIVE 0 % 0-0 PERCENT (BEAKER) (test code = 2801) POCT-GLUCOSE [id number] 20:52:00 Test Item Value Reference Range Interpretation Comments POC-GLUCOSE METER 127 mg/dL 70-110 H : TESTED A T [facility] [address] (BEAKER) (test code [facility] [address], = 1538) [facility] 77 478: Associate Field Service Engineer/Techni tammy ID = [id number] for chnya [employer] [id number] 11:55:00 Test Item Value Reference Range Interpretation Comments Case Report (test code Surgical Pathology = 104) Report Case: [id number] Authorizing Provider: Jada Alfonso DPM Collected: 05/21/2020 12:36 PM Ordering Location: [facility] Surg 5th Floor Received: 05/21/2020 12:49 PM Pathologist: Ann Meeks MD Specimen: Bone, right 1st metatarsal head bone biopsy DIAGNOSIS (test code = [id number] 3220) FuZzEwMzNcZnRuYmpcdWMx EOtrneTzWGtrd3HsZ0AcOa AwMFxhbnNpXGRlZmxhbmcx IGRcIAJ4jcBwFWZwZTrvLT LwLQwbTs3yjLAbwYkkSwVk KSFzq4avvvLVbqzesTm8c9 qkJBZgXhE2pKJsPSdsS5pv gyLluFKlWNQeRCc3yJ74LQ AzaP9daJVhLHossiRsDlT1 VHupNFJpVxC9CVAazCKpJY FyN8ccYZPfNAfmAJOtJSru jDZjSDN1eDkrq1A3uKVsjV MdqEfiEfZmAwAjBQYZp0Aj VBs7lHxiY8JqLYYvEnW0uK QgUGFyYWdyYXBoIEZvbnQ7 lZ87RJdkdlX5fWYep6Dcr5 4bn703zL7kvWZqNXJ2WAIy NBKxnVQhNQRlJJB0DGHxgU TmS7n7McMsiTYgA6D5RdJm tVNtN4G1BjCsvVTjP4O8Kl DtkJOfZQBkeHEzLw8mwZCs fPRphc8eiu86AJH9j6JevK syDXG1RQC8DfLsDs5waXBf BTLpBB1rEjSvuNBmXHVimo 87iMtfFLoiafJgtY3nOwVy MYCunHGfYEDxIC9feJCsZB WycT3hsvaxUWZlSkRsifts CJCdnNasyzIzMs0afTahXW I9OQjsG2tdzN3zJuJ2UFcr Y4gslR9bHLg9RXdfxCW5WH YnzR9nOU1xztlap5acEpVy IS4woilrk9oyBwVvNB6rwc m5g4fkCcBjZS4dkqfxi9jx NzIwXGhlYWRlcnkwXGZvb3 PvjdbyQPLiz0YiE2OkiQum O84vgDbwK96cXARxyPbjgN 4svEkroC9iRhWdBqPlODot bFxwbGFpblxmMVxmczIwXG gzbhmcNDBuBVycO5lkWoKi GHNhlYnsUIjgn8IeXRDxNV GpRgVxSu1BAYvuHaeKTEWy CczVO2ScADJDKXWBNfVNEJ GSZLTVBDEKSH4VR2w1YPWk mgPzKOTcFLBUIrJyT3sGPK SMB0MDCBWATSGFX2HEAuRG BpEaL0jKU86ZUaHGDsNCHN 6RUNXJP42eTGEAPaQIS7IJ ZwUjY7gYGNMVRZAZAinHXK 9TVEVPTVlFTElUSVNccGFy qFuskqMcTXysa8JoRVffFA SyXB9qjQoeUXEpAP4aUHRu A1sxeE6nhhb5BuMnWXYrHr F0WCLwcxX3Nki2ELLqZHqj u2pxm5AsFGOfZDq2zLprQo GtXHYvi3vvopZvEuRlUFJb JDTjTFZznWLqW536b8qey7 okinDsxIR1HCOoUDJ7KZib maEhaxN0KVncbIMzKcW7ZX tccmVkMFxncmVlbjBcYmx1 KYPbL922FYI7cCmcc8zhJX H4MPElQEYeVdKvYr0ukIXl P174HRKtVCVCHPRbgAb9IG IftaBpenOnjAGCp610Z674 o4yiLNEqzpNuqLsVygegm0 eqG676FQAwvSHdwvIsEnNi KUXadKIbpYD1LYKkDV5rma frDRpaHVrlPCBwuaE5TFVw uJQaH3OeHQDiXW3luysbZN I5HTmkCTMwXOY1KjVgPITa i3Lvvsa5QgLnjm4xkr44ET J8q4QnnYrqMVT0ETZ7SrGi Za8qeIBmNIYuNT3mChIgvY VgLVPlem60qGwnFTatSFO9 NMBllvVaw9Kti0rzUjYrad XcO9tyB8RdMRCyMYQqITRx VeTiwyCdi1Wht3QthURufI n3e6vrLWDiEULdlEpzj4ui QNV3ELPjoPJtZ8auaY7lGP JqVH5siurdp0azVXugZDuz YWRbyVN2ciN4OGAqaIYsO3 IixV0jGBSmUNxrNONdiqi8 SoYoGh3enULmpLdlYXyyMn twYWdlXHBnbmNvbnRccGdu ZGVjXHBsYWluXHBsYWluXG YwXGZzMjRccWxcbGFuZzEw MzNcaGljaFxmMVxkYmNoXG YtCNzpR3niKiWsGtIbFkv9 ERDomGPlGQAmHkn3BQYofZ TtTXEOtWerkN5eIWJeyTds jP2aaCL4QETalvEaaTZOaC 5yVIRDvR5oMnJ7QzRiMrP3 LTQyNDlccGFyfX0= CPT Code(s) (test code o4ijnIFbMEDheUKiWkMlRR = 3357) XlUXWdk1yhVTDwkTZfEhIx MzNcZnRuYmpcdWMxXGRlZm Fcc9anv677lFBmt2yhIHEr JjH5yMWmEYOjrJMqU795EA BlMUsgm9oez1LoFEToyHGk a2Q1KDOJcmlxpNq5rIvyR1 9yn8Y2TxnxG9mrHOBdMZMs W6UfWF7tJDQpRiy6TPF4KV G9PGMvBPBwW5GsJK6bVDXd eGHtLLa8f4yziWblJZPgGU R5l8exPKoilnZkQA7xie5s iDv7a9wxqdHgBMGdPJRdmL BOMBZjQ2DouAhdEs0cyIx8 eAfgMbwzNJN4Dzi4DS7nkz 15gtp3nEpiMCUyqmgxFcP3 PTiePZBarsxaFBh9FBuzQH JnbDcyMFxtYXJncjcyMFxt YXJndDcyMFxtYXJnYjcyMF noAVBrAZP0OJmxb838MGO0 PJnie4sut1rrmRJnRwv0OS ViSnQyEcpcQTvui6Hur2jq QHTcyk9wGTY5uGFthEyue4 C2sZWpUHZtlFAtneFnTDWt McF9LLocTZ8xio67CRZwFT Q1ma4vbBZptNqgfnCtvKWq LEagC7KaIESww559JKYxG7 UoTPWif9Z8gyApGqNdZABm dVW9aqL4EBOyRHi7pFZlpc L8vgDfmOQoS5ztyZ02RjVd jEMrL0JpwT80MiSelFFfF5 NaqU02SxXltAYvH5VyqX83 OtDjzBKcMLRsuVRwVm9ozB HxgJLaf6LxkLZgKNyoA33i b701BMPspbCfQ5zdcRCalv cpnEVvktysEIssrkF7SIQm XHBsYWluXGYxXGZzMjBcbG FuZzEwMzNcaGljaFxmMVxk HaGxKJHcWHugA5wmUiIfTr YtBPM2GJPxXfpvAXdgHJTl cGFyfQ== CLINICAL HISTORY (test l4xyjJSgXKWhyZBkTpBvJM code = 3355) SkPWIhb1zyIVGzzSFlLjMm MzNcZnRuYmpcdWMxXGRlZm Zyj6dpr213iUFvq8ofOTZd FiI5lORbFLPpzKPbP094s6 uwx4syqiTqcYZ7DRXcLVV5 VAhlqdRuhvP3ZYdirLVfGm K5SLkgalLpZBcwtlYusmTj Mwz5UEAnG492ISQ7kQuvk1 ueHZD2BLKuNTKyXsLzLw2j qMRbS105LMAoWLRVLKPklO x2DHElepZyruLlqEDBy187 O852s0hkNTOzkvQshDcZyw puj7boV557XQNleGRwjvAa OuErZWUdjFAvnSW5EYRwVU 9yczmmJiYgVD4drigiCdYb BT2joua3OfIwAO5yjovjMt PmOPazOXIfklpjCBNvo0Dt ugzyYU2fC2Oew2J4wO3tfT LaDQTgvENsNoGuUBGqsf8f mSEfSVhgf1YqNJG6iuF6fY EeyUPnXRZvNK18Afaql0Gh FlvhTKB2GQSlxmSrp0Ryw2 svQdMljnLcG6lhB1PuORVm ZJUbHRItAqVkkgHmg9Ktp4 TjsGWhwNo1z1xtRFPjILGa qPqks0ljBAG9ONAuM1Q4tC Dyo0klXQzxOCPjjNZ6ryum LIivHRLzvjM1woyjDLdbLF CrdQG9eflqTDvoPUFzFeI9 ryqhUXrwXRHwYEZ8HTfnc2 46PSU1BQbeJjkhRZmpEYTy bmNvbnRccGduZGVjXHBsYW luXHBsYWluXGYwXGZzMjRc gEyvpBtzsE1vZyGeOaIrSZ wyGI7nUYVeD6efwCYrZJBq WTEiD5rxWpFzoI2mzPhgWC ohooYcIEHyY0m8AJYzx2Lr ZAHqA5Lat5sbJBX9 SPECIMEN SOURCE (test o4bokFHrOGJmlFUfQoZtBU code = 3377) FtWCCtd8xtDOMeyXGvQhGr MzNcZnRuYmpcdWMxXGRlZm Pum0gky469jWTci2axZEDr XqJ1eNMyKXVkxMArV879w4 xbe6orfiIhcOW8GTUkLYE3 CUwzjnJjdgW7BZapbMAxTg V9ITkutsCvVQfokoGbatEv Ken0TCLvY371TEK6qEthw6 ywINK5DEEtKRFgNhXsHc6k hBMuC767HXMdJHNBOZSwdV w1FTUhoaQfkuYbzAYLu223 X064m3rcJCGymzFlsBjSos ghm3soI247NKZtyNTynzTv SyCuIFWdhKZkgZP6RTWtTR 7ssvnfAnXkSM1pxjdgTcCx AR1qbgm1TuVpSJ5qeajkKc OxSNgwJMZrlgpeFKDow7Of beseWT3vQ9Vcp8E5gY6zsM MwHCYllQZbZhGjTFMndl8k rSIdRJxfj0VaPUW5fxO8jO TssVBkQKKkDF64Ydgvf7Kn JjauDHH4EVDbrrTjb3Fzu9 ojXiBmctJoM1fnL3AwLXMp UJYuSXOgEzYdmeFul5Lfk9 JiiRHzgIh8e1zpFMCbFFUz oDcgv0zbZEF4PBJkK7G8rY Fun1zwQChjLWSkzLQ1cvey CMzlIJOzmoW1cnuoENknDU QtuOT4ixcwOKkuFGWaNpS3 gmkmUTkzHJJtXPU7PPauz0 41QRS5HCnyEwaxXDtuTZOb bmNvbnRccGduZGVjXHBsYW luXHBsYWluXGYwXGZzMjRc rLrimZlnbM0xKgHcGmDxDX piAV3aFUSsH0fpaSWjFEHe SVSnU8maKzQwqM2bjDqiKK marjHmBRClN8f5ZYEmyPYc USAluRJtd1JgGZgvAYEtBz 6rSQOruJ6qu7qzeEAfyZ== GROSS DESCRIPTION (test p2jdgTPpEWEzxMPxDgLsPX code = 3366) VvWFKax2yyYJLlnLDgIzVv MzNcZnRuYmpcdWMxXGRlZm Otg4cka425hZHqa3luZUTm YvI8vVBoHZFipJDsR519g9 ifk5oxexKbsJT4RWXqPOI0 OEbcarYrvyH0TAoseVGpWs S7THlzeoPwHYejwfMfhhZe Xpt5YBYtQ411YBE9mYboh7 lhGBW8UVBaJMPfBmVyLf0k dJZhW927IXZlNPPCMVOenH j6TWUegmBdzcFlfHMMj348 I151z0zlEWGfhmPhsHfIzm zje1faK435KDMseUYwidAc OgFmEOMduXEtfVT3JEPzDR 0nfcgqYoQiAJ5zndioKlIj CF5mwfm1ZsZnGR4jdpxvUd BiCZtmDBEylgmkPRFzw8Zx sodkJM1cV4Yds0F9hJ0hiN NeAVRkzOWdSwKvAMZhzr2z mEAqTNeux0YzDQH6mqX9wG XhnMYaPJHdSX48Ejdiz2Sd XxizUTC0GWVzyzTxz2Oln5 lfIrAjgsSqU3drE3QtBRTk XZNkMETuMmQldnEpz8Tbe6 QyuQWodKv5c2ikHZXvGBNv fWqat1ywWMP1KKAsO2V0zZ Tuu9gkSMioURNmlIQ4xxsw JOjmMTTvsbG7ngluYLseHH LrxBE6hifvWVpaFCGpYkQ9 qjsqIAfgMBJfRVU6KWjcw8 90FQB6TPpcYfrkRPhwZGEr bmNvbnRccGduZGVjXHBsYW luXHBsYWluXGYwXGZzMjRc zCpyuLecmZ6tIvPxVsRcMJ bnMS5yHRHyJ1uzhLVjCSKj MQRhR5wxQcNjpO9wbUvdQC xmczIwIFNwZWNpbWVuIGlz AZXlM5XawfFfJRrwXXRcit 5fgYlvFTXub2oepmK7MSHw VjVebdQgBYRpKAJtg54veL U3ysZwBsS1c29fiVXmZWBk LBHel69qXOZjUBewGB68ps FlMHXlqSYmovbqYKZ4HVSw AnX0QMAhFoIstKoeo4OwhQ s5jZGiYAUcaORrIPRuL7Mn E3nzlAQclKrzlqMcwcVwVO OwWFA5LIQIAP7mBKYQG6Xr XHBhcn0= MICROSCOPIC DESCRIPTION c0maqEMgYAGxhNIuFdKyFU (test code = 3371) JeVIKbt3foJZYpnACzYrEu MzNcZnRuYmpcdWMxXGRlZm Sfy1hjd535yISfv5biTBBw AgU0bPZvMYGhdFVxW467e4 guo6sujfEfuDY7GEKsVCK8 JHwpgdZqgtX6YSizzFLsRz I6WErwpzYjQPuffxTgdqYq Rkh6IBVnA554SJA9qQnkt5 wdZJN1VAVlAKQzLwVsQw5z eQVrJ493SJAzMUGLDCApyP d1NZRhvrTgyhBnoHJMj045 K747k0khPYAfuyNmjFzKqn hwf4znI798XUAopPMofiIx OfXoKSRqjGZqvGK4EXIiWX 5rzfreNwRqWM3advtiJqAl SM9oeen6DpPpCE3ldowwKc YbDLdjZWRgdmpkQPMup1Cd ilmmVS4eT2Ogg5S6eT0ciV RbRBZxpSKvKkUgKRRslo0x tRRkEBtcd9BaHLS6vdZ0pW TisBXwWGAcGY27Corku6Gq OxxmZSR8FXOwrgBow7Tjw2 tmMwTcdiAfT0gfC6NjBNQo LBPpNFMkPdFaxpOnw9Wqh7 IliGCvxTq0n8iwXYCeSLKn lYihs0jmQZX9FLEqV9Q6jV Juh7ubPUooUWBucUJ1pmab SZupJLZbkrQ0ntmcNOhqBM BngQL1llqnNOelLAEtNhU2 kpolZYmmRQEqOWL0JLbjv0 62AYB8UXeaKqrkEYoqHRZz bmNvbnRccGduZGVjXHBsYW luXHBsYWluXGYwXGZzMjRc dVlgyUvnsG5mUrVvTqCdMV anUJ7cEUJrQ4knpADrKLZz KIClA0ecYnTopG0boTmbFO xmxzThUGMfjbHztc2lLH2l XHBhcn0= Gross assessment was . [facility] performed at (test code Hospital, Department = 1890) of Pathology, [address] [place] [address], [place] [address], Technical component was [facility]'s performed at (test code Medical Center, = 2778) Department of Pathology, [address] [place] [address], Professional component [facility] was performed at ([facility], Department code = 2779) of Pathology, [address] [place] [address], [facility] CenterTISSUE [id number] 11:55:00Surgical Pathology Report Case: [id number] Authorizing Provider: Jada Alfonso DPM Collected: 05/21/2020 12:36 PM Ordering Location: [facility] Med Surg 5th Floor Received: 05/21/2020 12:49 PM Pathologist: Ann Meeks MD Specimen: Bone, right 1st metatarsal head bone biopsy BONE, RIGHT FIRSTMETATARSAL HEAD, BIOPSY: - BONE WITH FOCAL FIBROSIS AND CHRONIC INFLAMMATION, CONSISTENT WITH CHRONIC OSTEOMYELITIS Signing Pathologist Direct Phone Line: [phone] signed by Ann Meeks MD on 05/22/2020 at 11:55 [id number]; [id number] foot abscessRight 1st metatarsalhead bone biopsySpecimen is received in formalin designated "bone" and consists of two marin-red bone fragments measuring 1 x 0.3 x 0.3 cm, submitted after decalcification in cassette A1. SQ/plPerformed. [facility], [facility], [address] [place] [address], [facility], Department of Pathology, [address] [place] [address], [facility], [facility], [address] [place], [place] [address], FXGT-GLUCOSE [id number] 11:41:00 Test Item Value Reference Range Interpretation Comments POC-GLUCOSE METER 84 mg/dL 70-110 : TESTED A T [facility] 1317 (BEAKER) (test code = [address]) [facility] [place] [address]: Associate Field Service Engineer/Techni tammy ID = [id number] for Mary Adames POCT-GLUCOSE [id number] 07:38:00 Test Item Value Reference Range Interpretation Comments POC-GLUCOSE METER 93 mg/dL 70-110 : TESTED A T [facility] [address] (BEAKER) (test code = [address], 1538) [facility] [place] [address]: Associate Field Service Engineer/Techni tammy ID = [id number] for Mary Adames BASIC METABOLIC [id number] 06:04:00 Test Item Value Reference Range Interpretation Comments SODIUM (BEAKER) 135 meq/L 135-148 (test code = 381) POTASSIUM (BEAKER) 4.0 meq/L 3.6-5.5 (test code = 379) CHLORIDE (BEAKER) 97 meq/L 98-106 L (test code = 382) CO2 (BEAKER) (test 27 meq/L 20-29 code = 355) BLOOD UREA NITROGEN 17 mg/dL 10-26 (BEAKER) (test code = 354) CREATININE (BEAKER) 4.08 mg/dL 0.50-1.20 H (test code = 358) GLUCOSE RANDOM 106 mg/dL 70-110 (BEAKER) (test code = 652) CALCIUM (BEAKER) 8.6 mg/dL 8.5-10.5 (test code = 697) EGFR (BEAKER) (test 12 mL/min/1.73 ESTIMA NHAN GFR IS code = 1092) sq m NOT ACCURATE CREATININE CLEARANCE IN PREDICTING GLOMERULAR FILTRATION RATE . ESTIMATED GFR I S NOT APPLICABLE FOR DIALYSIS PATIEN TS. Associate Field Service Engineer ID - [id number] 05:51:00 Test Item Value Reference Range Interpretation Comments PHOSPHORUS (BEAKER) (test code = 4.4 mg/dL 2.5-4.5 604) Associate Field Service Engineer ID - ADMINCBC W/PLT COUNT & AUTO [id number] 05:30:00 Test Item Value Reference Range Interpretation Comments WHITE BLOOD CELL COUNT (BEAKER) 6.6 K/ L 4.0-10.0 (test code = 775) RED BLOOD CELL COUNT (BEAKER) 2.94 M/ L 4.00-5.00 L (test code = 761) HEMOGLOBIN (BEAKER) (test code = 9.1 GM/DL 12.0-15.5 L 410) HEMATOCRIT (BEAKER) (test code = 28.8 % 36.0-46.0 L 411) MEAN CORPUSCULAR VOLUME (BEAKER) 98.0 fL 82.0-99.0 (test code = 753) MEAN CORPUSCULAR HEMOGLOBIN 31.0 pg 27.0-33.0 (BEAKER) (test code = 751) MEAN CORPUSCULAR HEMOGLOBIN CONC 31.6 GM/DL 32.0-36.0 L (BEAKER) (test code = 752) RED CELL DISTRIBUTION WIDTH 14.3 % 12.0-15.0 (BEAKER) (test code = 412) PLATELET COUNT (BEAKER) (test 254 K/CU MM 150-430 code = 756) MEAN PLATELET VOLUME (BEAKER) 10.7 fL 6.0-11.5 (test code = 754) NUCLEATED RED BLOOD CELLS 0 /100 WBC 0-0 (BEAKER) (test code = 413) NEUTROPHILS RELATIVE PERCENT 71 % (BEAKER) (test code = 429) LYMPHOCYTES RELATIVE PERCENT 16 % (BEAKER) (test code = 430) MONOCYTES RELATIVE PERCENT 8 % (BEAKER) (test code = 431) EOSINOPHILS RELATIVE PERCENT 5 % (BEAKER) (test code = 432) BASOPHILS RELATIVE PERCENT 1 % (BEAKER) (test code = 437) NEUTROPHILS ABSOLUTE COUNT 4.62 K/ L 1.80-8.00 (BEAKER) (test code = 670) LYMPHOCYTES ABSOLUTE COUNT 1.03 K/ L 1.48-4.50 L (BEAKER) (test code = 414) MONOCYTES ABSOLUTE COUNT (BEAKER) 0.52 K/ L 0.00-1.30 (test code = 415) EOSINOPHILS ABSOLUTE COUNT 0.31 K/ L 0.00-0.50 (BEAKER) (test code = 416) BASOPHILS ABSOLUTE COUNT (BEAKER) 0.05 K/ L 0.00-0.20 (test code = 417) IMMATURE GRANULOCYTES-RELATIVE 0 % 0-0 PERCENT (BEAKER) (test code = 2801) POCT-GLUCOSE [id number] 21:49:00 Test Item Value Reference Range Interpretation Comments POC-GLUCOSE METER 95 mg/dL 70-110 : TESTED A T [facility] [address] (BEAKER) (test code = [address], 1538) [place] [id number]: Associate Field Service Engineer/Techni tammy ID = [id number] for Jacquie Vázquez POCT-GLUCOSE [id number] 12:40:00 Test Item Value Reference Range Interpretation Comments POC-GLUCOSE METER 80 mg/dL 70-110 : TESTED A T [facility] [address] (BEAKER) (test code = [address], [address]) [place] [id number]: Associate Field Service Engineer/Techni tammy ID = [id number] for Shirley an, Berenice hCG, serum, [id number] 10:42:00 Test Item Value Reference Range Interpretation Comments Preg Test, Serum (test code = Negative 2109-) [facility], SERUM, [id number] 10:42:00 Test Item Value Reference Range Interpretation Comments TEST SERUM (BEAKER) (test Negative code = 584) POCT-GLUCOSE [id number] 07:56:00 Test Item Value Reference Range Interpretation Comments POC-GLUCOSE METER 105 mg/dL 70-110 : TESTED A T [facility] [address] (BEAKER) (test code [address], = 1538) [place] [address]: Associate Field Service Engineer/Techni tammy ID = [id number] for Mary Adames ABORH, [id number] 05:28:00 Test Item Value Reference Range Interpretation Comments ABO Grouping (test code = 2588) O Rh Factor (test code = 2589) POS [facility] CenterType and screen, [id number] 04:53:00 Test Item Value Reference Range Interpretation Comments ABO/RH AUTOMATED (BEAKER) (test O POSITIVE code = 2260) Ab Scrn (test code = 890-4) NEGATIVE [facility] CenterIron, TIBC, % sat. (without ferritin)2020-05-21 04:24:00 Test Item Value Reference Range Interpretation Comments Iron (test code = 2498-4) 68.0 ug/dL 45-170 TIBC (test code = 2500-7) 170 ug/dL 250-550 L Iron % Saturation (test 40 % 20-55 code = 2502-3) YAKELIN (test code = YAKELIN) Associate Field Service Engineer ID - ADMIN Lab Interpretation (test Abnormal code = 57105-3) [facility] CenterBASIC METABOLIC [id number] 04:24:00 Test Item Value Reference Range Interpretation Comments SODIUM (BEAKER) 137 meq/L 135-148 (test code = 381) POTASSIUM (BEAKER) 4.5 meq/L 3.6-5.5 (test code = 379) CHLORIDE (BEAKER) 97 meq/L 98-106 L (test code = 382) CO2 (BEAKER) (test 22 meq/L 20-29 code = 355) BLOOD UREA NITROGEN 36 mg/dL 10-26 H (BEAKER) (test code = 354) CREATININE (BEAKER) 6.64 mg/dL 0.50-1.20 H (test code = 358) GLUCOSE RANDOM 110 mg/dL 70-110 (BEAKER) (test code = 652) CALCIUM (BEAKER) 8.7 mg/dL 8.5-10.5 (test code = 697) EGFR (BEAKER) (test 7 mL/min/1.73 ESTIMAT ED GFR IS code = 1092) sq m NOT ACCURATE CREATININE CLEARANCE IN PREDICTING GLOMERULAR FILTRATION RATE . ESTIMATED GFR I S NOT APPLICABLE FOR DIALYSIS PATIEN TS. Associate Field Service Engineer ID - ADMINIRON, TIBC, % SAT. (WITHOUT FERRITIN)2020-05-21 04:24:00 Test Item Value Reference Range Interpretation Comments IRON (BEAKER) (test code = 547) 68.0 ug/dL 45.0-170.0 TOTAL IRON BINDING CAPACITY 170 ug/dL 250-550 L (BEAKER) (test code = 769) IRON % SATURATION (2) (BEAKER) 40 % 20-55 (test code = 2590) Associate Field Service Engineer ID - [id number] 04:20:00 Test Item Value Reference Range Interpretation Comments Magnesium (test code = 2.0 mg/dL 1.5-3 12231-1) YAKELIN (test code = YAKELIN) Associate Field Service Engineer ID - ADMIN Lab Interpretation (test Normal code = 57721-0) [facility] CenterMAGNESIUM2020-10-05 04:20:00 Test Item Value Reference Range Interpretation Comments MAGNESIUM (BEAKER) (test code = 2.0 mg/dL 1.5-3.0 627) Associate Field Service Engineer ID - ADMINProthrombin time/[id number] 04:18:00 Test Item Value Reference Range Interpretation Comments Protime (test code = 10.9 9.3- 12.0 sec 5902-2) INR (test code = 1.00 <=5.90 6301-6) YAKELIN (test code = YAKELIN) RECOMMENDED COUMADIN/WARFARIN INR THERAPY RANGESSTANDARD DOSE: 2.0 - 3.0 Includes: PROPHYLAXIS for venous thrombosis, systemic embolization; TREATMENT for venous thrombosis and/or pulmonary embolus.HIGH RISK: Target INR is 2.5-3.5 for patients with mechanical heart valves.Final Information (Auto Output)Final Information (Auto Output) Lab Interpretation Normal (test code = 86357-6) [facility] CenteraPTT2020-10-05 04:18:00 Test Item Value Reference Range Interpretation Comments PTT (test code = 27.9 23.0- 35.0 sec 42862-7) YAKELIN (test code = YAKELIN) Final Information (Auto Output) Lab Interpretation (test Normal code = 11583-1) [facility] CenterPROTHROMBIN TIME/[id number] 04:18:00 Test Item Value Reference Range Interpretation Comments PROTIME (BEAKER) (test code = 759) 10.9 sec 9.3-12.0 INR (BEAKER) (test code = 370) 1.00 <=5.90 RECOMMENDED COUMADIN/WARFARIN INR THERAPY RANGESSTANDARD DOSE: 2.0 - 3.0 Includes: PROPHYLAXIS forvenous thrombosis, systemic embolization; TREATMENT for venous thrombosis and/or pulmonary embolus.HIGH RISK: Target INR is 2.5-3.5 for patients with mechanical heart valves.Final Information (Auto Output)Final Information (Auto Output)[id number] 04:18:00 Test Item Value Reference Range Interpretation Comments PARTIAL THROMBOPLASTIN TIME (BEAKER) 27.9 sec 23.0-35.0 (test code = 760) Final Information (Auto Output)[id number] 04:17:00 Test Item Value Reference Range Interpretation Comments PHOSPHORUS (BEAKER) (test code = 6.9 mg/dL 2.5-4.5 H 604) Associate Field Service Engineer ID - ADMINVANCOMYCIN LEVEL, [id number] 04:16:00 Test Item Value Reference Range Interpretation Comments VANCOMYCIN RANDOM (BEAKER) (test 13.8 ug/mL code = 523) Reference Range: No NormalsOperator ID - ADMINCBC W/PLT COUNT & AUTO [id number] 04:03:00 Test Item Value Reference Range Interpretation Comments WHITE BLOOD CELL COUNT (BEAKER) 5.9 K/ L 4.0-10.0 (test code = 775) RED BLOOD CELL COUNT (BEAKER) 2.94 M/ L 4.00-5.00 L (test code = 761) HEMOGLOBIN (BEAKER) (test code = 9.0 GM/DL 12.0-15.5 L 410) HEMATOCRIT (BEAKER) (test code = 29.1 % 36.0-46.0 L 411) MEAN CORPUSCULAR VOLUME (BEAKER) 99.0 fL 82.0-99.0 (test code = 753) MEAN CORPUSCULAR HEMOGLOBIN 30.6 pg 27.0-33.0 (BEAKER) (test code = 751) MEAN CORPUSCULAR HEMOGLOBIN CONC 30.9 GM/DL 32.0-36.0 L (BEAKER) (test code = 752) RED CELL DISTRIBUTION WIDTH 14.2 % 12.0-15.0 (BEAKER) (test code = 412) PLATELET COUNT (BEAKER) (test 272 K/CU MM 150-430 code = 756) MEAN PLATELET VOLUME (BEAKER) 10.4 fL 6.0-11.5 (test code = 754) NUCLEATED RED BLOOD CELLS 0 /100 WBC 0-0 (BEAKER) (test code = 413) NEUTROPHILS RELATIVE PERCENT 63 % (BEAKER) (test code = 429) LYMPHOCYTES RELATIVE PERCENT 22 % (BEAKER) (test code = 430) MONOCYTES RELATIVE PERCENT 8 % (BEAKER) (test code = 431) EOSINOPHILS RELATIVE PERCENT 6 % (BEAKER) (test code = 432) BASOPHILS RELATIVE PERCENT 1 % (BEAKER) (test code = 437) NEUTROPHILS ABSOLUTE COUNT 3.71 K/ L 1.80-8.00 (BEAKER) (test code = 670) LYMPHOCYTES ABSOLUTE COUNT 1.27 K/ L 1.48-4.50 L (BEAKER) (test code = 414) MONOCYTES ABSOLUTE COUNT (BEAKER) 0.49 K/ L 0.00-1.30 (test code = 415) EOSINOPHILS ABSOLUTE COUNT 0.37 K/ L 0.00-0.50 (BEAKER) (test code = 416) BASOPHILS ABSOLUTE COUNT (BEAKER) 0.05 K/ L 0.00-0.20 (test code = 417) IMMATURE GRANULOCYTES-RELATIVE 0 % 0-0 PERCENT (BEAKER) (test code = 2801) POCT-GLUCOSE [id number] 21:19:00 Test Item Value Reference Range Interpretation Comments POC-GLUCOSE METER 118 mg/dL 70-110 H : TESTED A T [facility] (BEAKER) (test code [address], = 1538) [place] [address]: Associate Field Service Engineer/Techni tammy ID = [id number] for Jacquie Vázquez POCT-GLUCOSE [id number] 16:03:00 Test Item Value Reference Range Interpretation Comments POC-GLUCOSE METER 273 mg/dL 70-110 H : TESTED A T [facility] (BEAKER) [facility] [place] [id number]: Associate Field Service Engineer/Techni tammy ID = [id number] for Mary Adames POCT-GLUCOSE [id number] 11:32:00 Test Item Value Reference Range Interpretation Comments POC-GLUCOSE METER 224 mg/dL 70-110 H : TESTED A T [facility] [address] (BEAKER) (test code [address], = 1538) [place] [address]: Associate Field Service Engineer/Techni tammy ID = [id number] for Mary Adames POCT-GLUCOSE [id number] 07:33:00 Test Item Value Reference Range Interpretation Comments POC-GLUCOSE METER 260 mg/dL 70-110 H : TESTED A T [facility] [address] (BEAKER) (test code [address], = 1538) [place] [id number]: Associate Field Service Engineer/Techni tammy ID = [id number] for Mary Adames TSH/Free T4 If [id number] 07:06:00 Test Item Value Reference Range Interpretation Comments TSH (test code = 3.130 0.350- 5.500 uIU/mL 17207-2) YAKELIN (test code = YAKELIN) Associate Field Service Engineer ID - ADMIN Lab Interpretation (test Normal code = 22988-2) [facility] CenterTSH/FREE T4 IF [id number] 07:06:00 Test Item Value Reference Range Interpretation Comments THYROID STIMULATING HORMONE 3.130 uIU/mL 0.350-5.500 (BEAKER) (test code = 772) Associate Field Service Engineer ID - ADMINBASIC METABOLIC [id number] 06:52:00 Test Item Value Reference Range Interpretation Comments SODIUM (BEAKER) 136 meq/L 135-148 (test code = 381) POTASSIUM (BEAKER) 4.6 meq/L 3.6-5.5 Specimen slightly (test code = 379) hemolyzed CHLORIDE (BEAKER) 100 meq/L 98-106 (test code = 382) CO2 (BEAKER) (test 24 meq/L 20-29 code = 355) BLOOD UREA NITROGEN 29 mg/dL 10-26 H (BEAKER) (test code = 354) CREATININE (BEAKER) 5.55 mg/dL 0.50-1.20 H Specimen slightly (test code = 358) hemolyzed GLUCOSE RANDOM 283 mg/dL 70-110 H (BEAKER) (test code = 652) CALCIUM (BEAKER) 8.3 mg/dL 8.5-10.5 L (test code = 697) EGFR (BEAKER) (test 8 mL/min/1.73 ESTIMAT ED GFR IS code = 1092) sq m NOT ACCURATE CREATININE CLEARANCE IN PREDICTING GLOMERULAR FILTRATION RATE . ESTIMATED GFR I S NOT APPLICABLE FOR DIALYSIS PATIEN TS. Associate Field Service Engineer ID - [id number] 06:49:00 Test Item Value Reference Range Interpretation Comments MAGNESIUM (BEAKER) 1.9 mg/dL 1.5-3.0 Specimen slightly (test code = 627) hemolyzed Associate Field Service Engineer ID - [id number] 06:46:00 Test Item Value Reference Range Interpretation Comments PHOSPHORUS (BEAKER) 6.2 mg/dL 2.5-4.5 H Specimen slightly (test code = 604) hemolyzed Associate Field Service Engineer ID - ADMINCBC W/PLT COUNT & AUTO [id number] 05:25:00 Test Item Value Reference Range Interpretation Comments WHITE BLOOD CELL COUNT 5.0 K/ L 4.0-10.0 (BEAKER) (test code = 775) RED BLOOD CELL COUNT 2.67 M/ L 4.00-5.00 L (BEAKER) (test code = 761) HEMOGLOBIN (BEAKER) (test 8.2 GM/DL 12.0-15.5 L code = 410) HEMATOCRIT (BEAKER) (test 27.7 % 36.0-46.0 L code = 411) MEAN CORPUSCULAR VOLUME 103.7 fL 82.0-99.0 H (BEAKER) (test code = 753) MEAN CORPUSCULAR 30.7 pg 27.0-33.0 HEMOGLOBIN (BEAKER) (test code = 751) MEAN CORPUSCULAR 29.6 GM/DL 32.0-36.0 L HEMOGLOBIN CONC (BEAKER) (test code = 752) RED CELL DISTRIBUTION 14.7 % 12.0-15.0 WIDTH (BEAKER) (test code = 412) PLATELET COUNT (BEAKER) 213 K/CU MM 150-430 No c lot detected (test code = 756) MEAN PLATELET VOLUME 10.8 fL 6.0-11.5 (BEAKER) (test code = 754) NUCLEATED RED BLOOD CELLS 0 /100 WBC 0-0 (BEAKER) (test code = 413) NEUTROPHILS RELATIVE 56 % PERCENT (BEAKER) (test code = 429) LYMPHOCYTES RELATIVE 24 % PERCENT (BEAKER) (test code = 430) MONOCYTES RELATIVE 11 % PERCENT (BEAKER) (test code = 431) EOSINOPHILS RELATIVE 6 % PERCENT (BEAKER) (test code = 432) BASOPHILS RELATIVE 1 % PERCENT (BEAKER) (test code = 437) NEUTROPHILS ABSOLUTE 2.83 K/ L 1.80-8.00 COUNT (BEAKER) (test code = 670) LYMPHOCYTES ABSOLUTE 1.19 K/ L 1.48-4.50 L COUNT (BEAKER) (test code = 414) MONOCYTES ABSOLUTE COUNT 0.57 K/ L 0.00-1.30 (BEAKER) (test code = 415) EOSINOPHILS ABSOLUTE 0.31 K/ L 0.00-0.50 COUNT (BEAKER) (test code = 416) BASOPHILS ABSOLUTE COUNT 0.05 K/ L 0.00-0.20 (BEAKER) (test code = 417) IMMATURE 1 % 0-0 H GRANULOCYTES-RELATIVE PERCENT (BEAKER) (test code = 2801) POCT-GLUCOSE [id number] 22:13:00 Test Item Value Reference Range Interpretation Comments POC-GLUCOSE METER 318 mg/dL 70-110 H : TESTED A T [facility] [address] (BEAKER) (test code [address] [facility], = 1538) [facility] 77 8: Associate Field Service Engineer/Techni tammy ID = [id number] for Elissa Diaz POCT-GLUCOSE [id number] 16:36:00 Test Item Value Reference Range Interpretation Comments POC-GLUCOSE METER 238 mg/dL 70-110 H : Notified RN/MD: TESTED ([facility]) (test code AT [facility] [address] = 1538) [facility] [address]: Associate Field Service Engineer/Techni tammy ID = [id number] for Cuate Castañeda Hepatitis B surface [id number] 12:07:00 Test Item Value Reference Range Interpretation Comments Hep B S Ab (test code = 9.4 <8.0 mIU/mL H 78482-6) YAKELIN (test code = YAKELIN) Associate Field Service Engineer ID - RORYG Lab Interpretation (test Abnormal code = 00337-3) [facility] [id number] 12:07:00 Test Item Value Reference Range Interpretation Comments HEPATITIS B SURFACE ANTIBODY 9.4 mIU/mL <8.0 H (BEAKER) (test code = 647) Associate Field Service Engineer ID - RORYGPOCT-GLUCOSE [id number] 11:31:00 Test Item Value Reference Range Interpretation Comments POC-GLUCOSE METER 170 mg/dL 70-110 H : Notified RN/MD: TESTED ([facility]) (test code AT [facility] [address] = 1538) [facility] [address]: Associate Field Service Engineer/Techni tammy ID = [id number] for Cuate Castañeda VANCOMYCIN LEVEL, [id number] 09:31:00 Test Item Value Reference Range Interpretation Comments VANCOMYCIN RANDOM (BEAKER) (test 14.3 ug/mL code = 523) Reference Range: No NormalsOperator ID - ADMINBASIC METABOLIC [id number] 08:59:00 Test Item Value Reference Range Interpretation Comments SODIUM (BEAKER) 137 meq/L 135-148 (test code = 381) POTASSIUM (BEAKER) 4.0 meq/L 3.6-5.5 (test code = 379) CHLORIDE (BEAKER) 100 meq/L 98-106 (test code = 382) CO2 (BEAKER) (test 24 meq/L 20-29 code = 355) BLOOD UREA NITROGEN 20 mg/dL 10-26 (BEAKER) (test code = 354) CREATININE (BEAKER) 4.46 mg/dL 0.50-1.20 H (test code = 358) GLUCOSE RANDOM 148 mg/dL 70-110 H (BEAKER) (test code = 652) CALCIUM (BEAKER) 8.7 mg/dL 8.5-10.5 (test code = 697) EGFR (BEAKER) (test 11 mL/min/1.73 ESTIMA NHAN GFR IS code = 1092) sq m NOT ACCURATE CREATININE CLEARANCE IN PREDICTING GLOMERULAR FILTRATION RATE . ESTIMATED GFR I S NOT APPLICABLE FOR DIALYSIS PATIEN TS. Associate Field Service Engineer ID - [id number] 08:56:00 Test Item Value Reference Range Interpretation Comments MAGNESIUM (BEAKER) (test code = 1.9 mg/dL 1.5-3.0 627) Associate Field Service Engineer ID - [id number] 08:53:00 Test Item Value Reference Range Interpretation Comments PHOSPHORUS (BEAKER) (test code = 4.7 mg/dL 2.5-4.5 H 604) Associate Field Service Engineer ID - ADMINCBC W/PLT COUNT & AUTO [id number] 08:51:00 Test Item Value Reference Range Interpretation Comments WHITE BLOOD CELL COUNT (BEAKER) 5.1 K/ L 4.0-10.0 (test code = 775) RED BLOOD CELL COUNT (BEAKER) 3.01 M/ L 4.00-5.00 L (test code = 761) HEMOGLOBIN (BEAKER) (test code = 9.4 GM/DL 12.0-15.5 L 410) HEMATOCRIT (BEAKER) (test code = 29.7 % 36.0-46.0 L 411) MEAN CORPUSCULAR VOLUME (BEAKER) 98.7 fL 82.0-99.0 (test code = 753) MEAN CORPUSCULAR HEMOGLOBIN 31.2 pg 27.0-33.0 (BEAKER) (test code = 751) MEAN CORPUSCULAR HEMOGLOBIN CONC 31.6 GM/DL 32.0-36.0 L (BEAKER) (test code = 752) RED CELL DISTRIBUTION WIDTH 14.7 % 12.0-15.0 (BEAKER) (test code = 412) PLATELET COUNT (BEAKER) (test 244 K/CU MM 150-430 code = 756) MEAN PLATELET VOLUME (BEAKER) 10.3 fL 6.0-11.5 (test code = 754) NUCLEATED RED BLOOD CELLS 0 /100 WBC 0-0 (BEAKER) (test code = 413) NEUTROPHILS RELATIVE PERCENT 63 % (BEAKER) (test code = 429) LYMPHOCYTES RELATIVE PERCENT 25 % (BEAKER) (test code = 430) MONOCYTES RELATIVE PERCENT 7 % (BEAKER) (test code = 431) EOSINOPHILS RELATIVE PERCENT 5 % (BEAKER) (test code = 432) BASOPHILS RELATIVE PERCENT 1 % (BEAKER) (test code = 437) NEUTROPHILS ABSOLUTE COUNT 3.24 K/ L 1.80-8.00 (BEAKER) (test code = 670) LYMPHOCYTES ABSOLUTE COUNT 1.26 K/ L 1.48-4.50 L (BEAKER) (test code = 414) MONOCYTES ABSOLUTE COUNT (BEAKER) 0.35 K/ L 0.00-1.30 (test code = 415) EOSINOPHILS ABSOLUTE COUNT 0.25 K/ L 0.00-0.50 (BEAKER) (test code = 416) BASOPHILS ABSOLUTE COUNT (BEAKER) 0.03 K/ L 0.00-0.20 (test code = 417) IMMATURE GRANULOCYTES-RELATIVE 0 % 0-0 PERCENT (BEAKER) (test code = 2801) POCT-GLUCOSE [id number] 07:53:00 Test Item Value Reference Range Interpretation Comments POC-GLUCOSE METER 153 mg/dL 70-110 H : Notified RN/MD: TESTED (BEAKER) (test code AT [address] = 1538) [facility] [address]: Associate Field Service Engineer/Techni tammy ID = [id number] for Lowell reyesAdeelshakeelflaca SARS-CoV2/RT-PCR (Asymptomatic ONLY)2020-05-19 00:02:00 Test Item Value Reference Range Interpretation Comments SARS-COV2/RT-PCR Negative Not Detected, (test code = Negative, See 38206-0) external report for linked test SARS-COV-2 [facility] PERFORMING LAB (test code = 61656-8) YAKELIN (test code = Negative result for this YAKELIN) test determines that SARS-CoV-2 RNA was not present in the specimen above the Limit of Detection (LOD). However, Negative results do not preclude SARS-CoV-2 infection and should not be used as the sole basis for treatment or patient management decisions. Negative results must be combined with clinical observations, patient history, and epidemiological information. A false negative result may occur if a specimen is improperly collected, transported or handled. A false negative result should be considered if patient's recent exposures or clinical presentation indicate that COVID-19 (SARS-CoV-2) is likely and diagnostic tests for other causes of illness are negative. Re-testing should be considered in cases of suspected [...] Food and Drug Administration (FDA) cleared or approved. This is a modified version of an approved [...] of the Act. Fact Sheet for Healthcare Providers:https://www.[employer]/sites/default/f shruthi/product/documents/F act_Sheet_HC_Providers_L npx_WFYU-ZfL-7.pdf Fact Sheet for Healthcare Patients:https://www.[employer]/sites/default/fi les/product/documents/Fa ct_Sheet_Patients_Lyra_S ARS-CoV-2.pdf Performing Laboratory:[facility] [place] [address] [facility])2020-05-19 00:02:00 Test Item Value Reference Range Interpretation Comments SARS-COV2/RT-PCR (test Negative Not Detected, Negative, code = 3591293) See external report for linked test SARS-COV-2 PERFORMING LAB [facility] (test code = 3885114) Negative result for this test determines that SARS-CoV-2 RNA was not present in the specimen above the Limit of Detection (LOD). However, Negative results do not preclude SARS-CoV-2 infection and should not be used as the sole basis for treatment or patient management decisions. Negative results mustbe combined with clinical observations, patient history, and epidemiological information. A false negative result may occur if a specimen is improperly collected, transported or handled. A false negative result should be considered if patient's recent exposures or clinical presentation indicate that COVID-19 (SARS-CoV-2) is likely and diagnostic tests for other causes of illness are negative. Re-testing should be considered in cases of suspected false negatives.The limit of detection for this assay is 800 copies/mL.This SARS CoV-2 test is a real-time RT-PCR test intended for the qualitative detection of nucleic acid from SARS-CoV-2 in a nasopharyngeal swab specimen collected from individuals susp ected of COVID-19 by their healthcare provider.This test has not been Food and Drug Administration (FDA) cleared or approved. This is a modified version of an approved [...] is revoked under Section 564(g) of the Act.Fact Sheet for Healthcare Providers:https://www.[employer]/sites/default/files/product/documents/Fact_Shee q_KG_Czhppapzz_Lacb_ZVFR-VhT-7.pdfFact Sheet for Healthcare Patients:https://www.[employer]/sites/default/files/product/ documents/Xewv_Jctxr_Uunzhngo_Gwmb_SJUV-VqH-0.pdfPerforming Laboratory:[facility], [place] [id number] METER 2020-05-18 21:01:00 Test Item Value Reference Range Interpretation Comments POC-GLUCOSE METER 190 mg/dL 70-110 H : TESTED A T [facility] [address] (BEAKER) (test code [address], = 1538) [place] [address]: Associate Field Service Engineer/Techni tammy ID = [id number] for Nehal Patiño Hepatitis B surface [id number] 20:29:00 Test Item Value Reference Range Interpretation Comments HBsAg Screen (test code = Nonreactive Nonreactive 5195-3) YAKELIN (test code = YAKELIN) Associate Field Service Engineer ID - ADMIN Lab Interpretation (test Normal code = 55078-4) [facility] [id number] 20:29:00 Test Item Value Reference Range Interpretation Comments HEPATITIS B SURFACE ANTIGEN (2) Nonreactive Nonreactive (BEAKER) (test code = 2585) Associate Field Service Engineer ID - ADMINPOCT-GLUCOSE [id number] 16:43:00 Test Item Value Reference Range Interpretation Comments POC-GLUCOSE METER 211 mg/dL 70-110 H : TESTED A T [facility] [address] (BEAKER) (test code [address], = 1538) [place] [address]240[address]: Associate Field Service Engineer/Techni tammy ID = [id number] for Mary Adames MR, EXTREMITY, LOWER, WITHOUT CONTRAST, [id number] 15:44:00Recent amputation for R great toe osteomyelitis/diabetic foot, now presenting w increasing pain and also now pain/erythema of 2nd toeUnlisted Reason for Exam - Click Yes and Enter Reason Below->NoFINAL REPORT MRI of the right forefoot without intravenous contrast History: Osteomyelitis suspected, diabetic Comparison: Radiograph dated May 17, 2020, performed at an outside institution Technique: Multiplanar multisequence MRI of the right forefoot was performed without intravenous contrast Findings: Patient is status post amputation of the first phalanges. There is an apparent ulceration at the first toe soft tissue stump, with a linear tract of subcutaneous fluid/edema that extends to the metatarsal head, concerning for infection although a discrete drainable collection is not identified. There is mild patchy marrow edema in the first metatarsal head, as well as the sesamoid bones, without definite cortical erosive change. There is also diffuse soft tissue edema in the right forefoot, with prominent subcutaneous edema dorsally. No tenosynovitis. No evidence of acute fracture, or malalignment. No joint effusion is identified. IMPRESSION: Status post amputation ofthe first phalanges. Diffuse soft tissue edema in the right forefoot. There is an apparent ulceration at the first toe soft tissue stump, with a linear tract of subcutaneous fluid/edema that extends toward the first metatarsal head, concerning for infection, although a discrete drainable collection isnot identified. Nonspecific patchy marrow edema in the first metatarsal head and the sesamoid bones,which could reflect reactive change versus early infection, although no definite erosion is identified on the current study. Consider short interval imaging follow-up if clinically appropriate. Signed:Guanako Tyler MDReport Verified Date/Time: 05/18/2020 15:44:11 Reading Location[facility] Radiology Reading Room MR lower extremity without IV contrast right [id number] 15:44:00Interface, External Ris In - 05/18/2020 3:46 PM CDTFINAL REPORT MRI of the right forefoot without intravenous contrast History: Osteomyelitis suspected, diabetic Comparison: Radi ograph dated May 17, 2020, performed at an outside institution Technique: Multiplanar multisequence MRI of the right forefoot was performed without intravenous contrast Findings: Patient is status post amputation of the first phalanges. There is an apparent ulceration at the first toe soft tissue stump, with a linear tract of subcutaneous fluid/edema that extends to the metatarsal head, concerning for infection although a discrete drainable collection is not identified. There is mild patchy marrow edema in the first metatarsal head, as well as the sesamoid bones, without definite cortical erosive change. There is also diffuse soft tissue edema in the right forefoot, with prominent subcutaneousedema dorsally. No tenosynovitis. No evidence of acute fracture, or malalignment. No joint effusion is identified. IMPRESSION: Status post amputation of the first phalanges. Diffuse soft tissue edema in the right forefoot. There is an apparent ulceration at the first toe soft tissue stump, with a linear tract of subcutaneous fluid/edema that extends toward the first metatarsal head, concerning for infection, although a discrete drainable collection is not identified. Nonspecific patchy marrow edema in the first metatarsal head and the sesamoid bones, which could reflect reactive change versus earlyinfection, although no definite erosion is identified on the current study. Consider short interval imaging follow-up if clinically appropriate. Signed: Guanako Tyler Verified Date/Time: 05/18/2020 15:44:11 Reading [facility] 2020-05-18 12:55:00 Test Item Value Reference Range Interpretation Comments POC-GLUCOSE METER 169 mg/dL 70-110 H : [facility] (test code [address], = 1538) [facility] [address]: Associate Field Service Engineer/Techni tammy ID = [id number] for Daryn marcano Mary Hepatic function [id number] 09:20:00 Test Item Value Reference Range Interpretation Comments Protein, Total (test 6.9 6.0- 8.5 gm/dL Speci men code = 2885-2) slightly hemolyzed Albumin (test code = 3.1 g/dL 3.5-5 L [place] 90567-9) slightly hemolyzed Total Bilirubin (test 0.5 mg/dL 0.1-1.2 Specim en code = 1975-2) slightly hemolyzed Bilirubin, Direct 0.2 mg/dL 0-0.4 Specimen (test code = 1968-7) slightl y hemolyzed Alkaline Phosphatase 146 U/L 30-115 H (test code = 6768-6) AST (test code = 31 U/L 5-40 Specimen 1920-8) slightly hemolyzed ALT (test code = 26 U/L 5-50 Specimen 1742-6) slightly hemolyzed YAKELIN (test code = YAKELIN) Associate Field Service Engineer ID - ADMIN Lab Interpretation Abnormal (test code = 01660-9) [facility] CenterHemoglobin [id number] 09:20:00 Test Item Value Reference Range Interpretation Comments Hemoglobin A1C (test code 9.4 % 4.3-6.1 H = 4548-4) YAKELIN (test code = YAKELIN) Associate Field Service Engineer ID - ADMIN Lab Interpretation (test Abnormal code = 66436-8) [facility] CenterHEPATIC FUNCTION [id number] 09:20:00 Test Item Value Reference Range Interpretation Comments TOTAL PROTEIN (BEAKER) 6.9 gm/dL 6.0-8.5 Speci men slightly (test code = 770) hemolyzed ALBUMIN (BEAKER) (test 3.1 g/dL 3.5-5.0 L Speci men slightly code = 1145) hemolyzed BILIRUBIN TOTAL 0.5 mg/dL 0.1-1.2 Specimen sli ghtly (BEAKER) (test code = hemoly zed 377) BILIRUBIN DIRECT 0.2 mg/dL 0.0-0.4 Specimen sl ightly (BEAKER) (test code = hemoly zed 706) ALKALINE PHOSPHATASE 146 U/L 30-115 H (BEAKER) (test code = 346) AST (SGOT) (BEAKER) 31 U/L 5-40 Specimen slightly (test code = 353) hemolyzed ALT (SGPT) (BEAKER) 26 U/L 5-50 Specimen slightly (test code = 347) hemolyzed Associate Field Service Engineer ID - [id number] 09:20:00 Test Item Value Reference Range Interpretation Comments MAGNESIUM (BEAKER) 3.8 mg/dL 1.5-3.0 H Specimen slightly (test code = 627) hemolyzed Associate Field Service Engineer ID - ADMINHEMOGLOBIN [id number] 09:20:00 Test Item Value Reference Range Interpretation Comments HEMOGLOBIN A1C (BEAKER) (test code = 9.4 % 4.3-6.1 H 368) Associate Field Service Engineer ID - ADMINC-Reactive [id number] 09:19:00 Test Item Value Reference Range Interpretation Comments CRP (test code = 676) 1.17 mg/dL 0-0.5 H YAKELIN (test code = YAKELIN) Associate Field Service Engineer ID - ADMIN Lab Interpretation (test Abnormal code = 72577-9) [facility] CenterBASI METABOLIC [id number] 09:19:00 Test Item Value Reference Range Interpretation Comments SODIUM (BEAKER) 141 meq/L 135-148 (test code = 381) POTASSIUM (BEAKER) 4.1 meq/L 3.6-5.5 Specimen slightly (test code = 379) hemolyzed CHLORIDE (BEAKER) 104 meq/L 98-106 (test code = 382) CO2 (BEAKER) (test 22 meq/L 20-29 code = 355) BLOOD UREA NITROGEN 47 mg/dL 10-26 H (BEAKER) (test code = 354) CREATININE (BEAKER) 7.61 mg/dL 0.50-1.20 H Specimen slightly (test code = 358) hemolyzed GLUCOSE RANDOM 179 mg/dL 70-110 H (BEAKER) (test code = 652) CALCIUM (BEAKER) 8.5 mg/dL 8.5-10.5 (test code = 697) EGFR (BEAKER) (test 6 mL/min/1.73 ESTIMAT ED GFR IS code = 1092) sq m NOT ACCURATE CREATININE CLEARANCE IN PREDICTING GLOMERULAR FILTRATION RATE . ESTIMATED GFR I S NOT APPLICABLE FOR DIALYSIS PATIEN TS. Associate Field Service Engineer ID - ADMINC-REACTIVE [id number] 09:19:00 Test Item Value Reference Range Interpretation Comments C-REACTIVE PROTEIN (BEAKER) (test 1.17 mg/dL 0.00-0.50 H code = 676) Associate Field Service Engineer ID - ADMINVancomycin level, [id number] 09:18:00 Test Item Value Reference Range Interpretation Comments Vancomycin Tr (test code = 15.1 ug/mL 06-05 4092-3) YAKELIN (test code = YAKELIN) Associate Field Service Engineer ID - ADMIN Lab Interpretation (test Normal code = 40650-1) [facility] CenterVANCOMYCIN LEVEL, [id number] 09:18:00 Test Item Value Reference Range Interpretation Comments VANCOMYCIN TROUGH (BEAKER) (test 15.1 ug/mL 10.0-20.0 code = 522) Associate Field Service Engineer ID - ADMINCBC W/PLT COUNT & AUTO [id number] 09:09:00 Test Item Value Reference Range Interpretation Comments WHITE BLOOD CELL COUNT (BEAKER) 7.3 K/ L 4.0-10.0 (test code = 775) RED BLOOD CELL COUNT (BEAKER) 2.74 M/ L 4.00-5.00 L (test code = 761) HEMOGLOBIN (BEAKER) (test code = 8.6 GM/DL 12.0-15.5 L 410) HEMATOCRIT (BEAKER) (test code = 26.8 % 36.0-46.0 L 411) MEAN CORPUSCULAR VOLUME (BEAKER) 97.8 fL 82.0-99.0 (test code = 753) MEAN CORPUSCULAR HEMOGLOBIN 31.4 pg 27.0-33.0 (BEAKER) (test code = 751) MEAN CORPUSCULAR HEMOGLOBIN CONC 32.1 GM/DL 32.0-36.0 (BEAKER) (test code = 752) RED CELL DISTRIBUTION WIDTH 14.8 % 12.0-15.0 (BEAKER) (test code = 412) PLATELET COUNT (BEAKER) (test 274 K/CU MM 150-430 code = 756) MEAN PLATELET VOLUME (BEAKER) 10.7 fL 6.0-11.5 (test code = 754) NUCLEATED RED BLOOD CELLS 0 /100 WBC 0-0 (BEAKER) (test code = 413) NEUTROPHILS RELATIVE PERCENT 75 % (BEAKER) (test code = 429) LYMPHOCYTES RELATIVE PERCENT 14 % (BEAKER) (test code = 430) MONOCYTES RELATIVE PERCENT 6 % (BEAKER) (test code = 431) EOSINOPHILS RELATIVE PERCENT 5 % (BEAKER) (test code = 432) BASOPHILS RELATIVE PERCENT 1 % (BEAKER) (test code = 437) NEUTROPHILS ABSOLUTE COUNT 5.45 K/ L 1.80-8.00 (BEAKER) (test code = 670) LYMPHOCYTES ABSOLUTE COUNT 1.01 K/ L 1.48-4.50 L (BEAKER) (test code = 414) MONOCYTES ABSOLUTE COUNT (BEAKER) 0.41 K/ L 0.00-1.30 (test code = 415) EOSINOPHILS ABSOLUTE COUNT 0.35 K/ L 0.00-0.50 (BEAKER) (test code = 416) BASOPHILS ABSOLUTE COUNT (BEAKER) 0.05 K/ L 0.00-0.20 (test code = 417) IMMATURE GRANULOCYTES-RELATIVE 0 % 0-0 PERCENT (BEAKER) (test code = 2801) POCT-GLUCOSE [id number] 08:18:00 Test Item Value Reference Range Interpretation Comments POC-GLUCOSE METER 177 mg/dL 70-110 H : TESTED A T [facility] [address] (BEAKER) ([facility] [address] [address] [address] = [address] [address]: Associate Field Service Engineer/Techni tammy ID = [id number] for Lyndaregulo alonsodenziMary RAD, CHEST, 1 VIEW, NON [id number] 08:11:00Reason for exam:->shortness of breathShould this be performed at the bedside?->YesFINAL REPORT CLINICAL HISTORY: shortness of breath TECHNIQUE: 1 view of the chest. COMPARISON: 07/18/2019 IMPRESSION: There are new, mildly prominent interstitial opacities bilaterally. There is no lobar consolidation or significant pleural fluid. There is no cardiomegaly. Surgical clips are seen in the medial left upper arm. Signed: Marychuy Bueno Verified Date/Time: 05/18/2020 08:11:49 Reading Location: [facility] Radiology Reading Room Electronically signedby: MARYCHUY BUENO M.D. on 05/18/2020 08:11 AMXR chest 1 view portable / [id number] 08:11:00Interface, External Ris In - 05/18/2020 8:13 AM CDTFINAL REPORT CLINICAL HISTORY: shortness of breath TECHNIQUE: 1 view of the chest. COMPARISON: 07/18/2019 IMPRESSION: There are new, mildly prominent interstitial opacities bilaterally. There is no lobar consolidation or significant pleural fluid. There is no cardiomegaly. Surgical clips are seen in the medial left upper arm. Signed: Marychuy Bueno Verified Date/Time: 05/18/2020 08:11:49 Reading Location: [facility] Radiology Reading Room [facility] HEPATITIS B SURF AB, [id number] 18:16:00 Test Item Value Reference Range Interpretation Comments HEPATITIS B SURF AB, 1.1 mIU/mL ~~~~~~~ ~~~~~~~~~~~~~~~~ QUANT (test code = ~~~~~~~~~ ~~~~~~~~~~~~~~ HBSABQ) ~~~~~~~~~~~~~~I NTERPRET EVONNE DATA: <5.00 mIU/mL : Negative - P atient is considered t o be notimmune to in fection with HBV. >= 5. 00 mIU/mL and <12. 0 mIU/mL: Indeter minate - Unable todeterm ine if anti-HBs is pre sent at levels consiste nt withimmunity. P atient's immune status s hould be further assesse dby considering oth er clinical inform ation or retestinganothe r specimen drawn at a later time. >=1 2.0 mIU/mL: Positiv e - Anti-HBs detect ed at >10 mIU/mL.Zara ent is considered to b e immune to infection wi th HBV. Ithas not been determined what the clinical signif icance isfor values gr eater than >=12 mIU/m L, other than theindivid ual is considered to b e immune to HBV infection.~~~~~ ~~~~~~~~ ~~~~~~~~~~~~~~~ ~~~~~~~~ ~~~~~~~~~~~~~~~ ~~~~~~~~ ~ AG HEPATITIS B [id number] 18:16:00 Test Item Value Reference Range Interpretation Comments AG HEPATITIS B SURFACE (test code = NEGATIVE NONREACTIVE HBSAG) HIV 12 AB [id number] 18:16:00 Test Item Value Reference Range Interpretation Comments HIV 1 2 COMBO AG/AB SCREEN AB/AG NON REACTIVE NONREACTIVE (test code = [id number]) HEPATITIS B SURF AB, [id number] 17:51:00 Test Item Value Reference Range Interpretation Comments HEPATITIS B SURF AB, QUANT (test code mIU/mL = HBSABQ) AG HEPATITIS B [id number] 17:51:00 Test Item Value Reference Range Interpretation Comments AG HEPATITIS B SURFACE (test code = NEGATIVE NONREACTIVE HBSAG) HIV 12 AB [id number] 17:51:00 Test Item Value Reference Range Interpretation Comments HIV 1 2 COMBO AG/AB SCREEN AB/AG NON REACTIVE NONREACTIVE (test code = [id number]) HEPATITIS B SURF AB, [id number] 17:39:00 Test Item Value Reference Range Interpretation Comments HEPATITIS B SURF AB, QUANT (test code mIU/mL = HBSABQ) AG HEPATITIS B [id number] 17:39:00 Test Item Value Reference Range Interpretation Comments AG HEPATITIS B SURFACE (test code = NEGATIVE NONREACTIVE HBSAG) HIV 12 AB [id number] 17:39:00 Test Item Value Reference Range Interpretation Comments HIV 1 2 COMBO AG/AB SCREEN (test code = NONREACTIVE [id number]) GLUCOSE BEDSIDE [id number] 12:00:00 Test Item Value Reference Range Interpretation Comments GLUCOSE BEDSIDE TESTING (test code 136 MG/DL 60-99 H = GLUBED) GLUCOSE BEDSIDE [id number] 21:08:00 Test Item Value Reference Range Interpretation Comments GLUCOSE BEDSIDE TESTING (test code = 84 MG/DL 60-99 N GLUBED) BASIC METABOLIC [id number] 16:40:00 Test Item Value Reference Range Interpretation [...] 9.0 MG/DL 8.4-10.2 N CA) HCG SERUM [id number] 16:40:00 Test Item Value Reference Range Interpretation Comments HCG SERUM QUAL (test code = HCGQL) NEGATIVE NEGATIVE A PROTHROMBIN [id number] 16:32:00 Test Item Value Reference Range Interpretation [...] sunshine embolism. 3.0 - 4.5 Comments to Bag Filler Machine Operator: PREOPPTT [id number] 16:32:00 Test Item Value Reference Range Interpretation Comments PTT ACTIVATED (test code = APTT) 30.3 SECONDS 22.0-33.0 N Comments to Bag Filler Machine Operator: PREOPBASIC METABOLIC [id number] 16:32:00 Test Item Value Reference Range Interpretation [...] code = CA) MG/DL 8.7-9.7 HCG SERUM [id number] 16:32:00 Test Item Value Reference Range Interpretation Comments HCG SERUM QUAL (test code = HCGQL) NEGATIVE NEGATIVE A BASIC METABOLIC [id number] 16:31:00 Test Item Value Reference Range Interpretation [...] code = CA) MG/DL 8.7-9.7 HCG SERUM [id number] 16:31:00 Test Item Value Reference Range Interpretation Comments HCG SERUM QUAL (test code = HCGQL) NEGATIVE CBC W/AUTO [id number] 16:25:00 Test Item Value Reference Range Interpretation [...] 0.00 K/mm3 0.0-0.1 N NRBC#) GLUCOSE BEDSIDE [id number] 18:41:00 Test Item Value Reference Range Interpretation Comments GLUCOSE BEDSIDE TESTING (test code = 83 MG/DL 60-99 N GLUBED) BASIC METABOLIC [id number] 15:04:00 Test Item Value Reference Range Interpretation [...] 9.1 MG/DL 8.4-10.2 N CA) BASIC METABOLIC [id number] 15:00:00 Test Item Value Reference Range Interpretation [...] code = CA) MG/DL 8.7-9.7 HCG SERUM [id number] 14:59:00 Test Item Value Reference Range Interpretation Comments HCG SERUM QUAL (test code = HCGQL) NEGATIVE NEGATIVE A PROTHROMBIN [id number] 14:56:00 Test Item Value Reference Range Interpretation [...] syste sunshine embolism. 3.0 - 4.5 PTT [id number] 14:56:00 Test Item Value Reference Range Interpretation Comments PTT ACTIVATED (test code = APTT) 27.9 SECONDS 22.0-33.0 N CBC W/AUTO [id number] 14:43:00 Test Item Value Reference Range Interpretation [...] N NRBC#) RAD, CHEST, 1 VIEW, NON [id number] 11:27:00Reason for exam:->r/o pneumoniaShould this be performed [...] MDReport Verified Date/Time: 07/18/2019 11:27:35 Reading Location: [facility] Reading Room POCT-GLUCOSE [id number] 08:34:00 Test Item Value Reference Range Interpretation Comments POC-GLUCOSE METER 126 mg/dL 70-110 H : TESTED A T [facility] 67[facility] (BEAKER) (test code = [place], 1538) [id number]: Associate Field Service Engineer/Techni tammy ID = [id number] for Baldomero Carney ECG 12 [id number] 07:35:45Interface, External Ris In - 07/18/2019 7:35 AM CSTVentricular Rate 87 BPMAtrial Rate 87 BPMP-R Interval 136 msQRS Duration 72 msQ-T Interval 380 msQTC Calculation(Bazett) 457 msP Rives 68 degreesR Rives 17 degreesT Rives 65 degreesNormal sinus rhythmNormal ECGWhen compared with ECG of 19-MAR-2017 15:16,QT has shortenedConfirmed by MD BROCK, LAKSHMI ([id number]) on 07/18/2019 7:35:43 [facility] METABOLIC [id number] 06:56:00 Test Item Value Reference Range Interpretation [...] S NOT APPLICABLE FOR DIALYSIS PATIEN TS. [id number] 06:45:00 Test Item Value Reference Range Interpretation Comments PHOSPHORUS (BEAKER) (test code = 4.6 mg/dL 2.3-4.7 604) [id number] 06:45:00 Test Item Value Reference Range Interpretation Comments MAGNESIUM (BEAKER) (test code = 2.0 mg/dL 1.6-2.6 627) CBC W/PLT COUNT & AUTO [id number] 05:35:00 Test Item Value Reference Range Interpretation [...] 0-1 PERCENT (BEAKER) (test code = 2801) PROTHROMBIN [id number] 05:24:00 Test Item Value Reference Range Interpretation [...] is2.5-3.5 for patients wiht mechanical heart valves.POCT-GLUCOSE [id number] 21:08:00 Test Item Value Reference Range Interpretation Comments POC-GLUCOSE METER 191 mg/dL 70-110 H : TESTED A T [facility] ([employer]) (test code = [employer] [place], 1538) 49[address]: Associate Field Service Engineer/Techni tammy ID = [id number] for Keith Quintero POCT-GLUCOSE [id number] 17:20:00 Test Item Value Reference Range Interpretation Comments POC-GLUCOSE METER 168 mg/dL 70-110 H : TESTED A T [facility] 67[facility] ([employer]) (test code = [employer] [place], 1538) 377[address]: Associate Field Service Engineer/Techni tammy ID = [id number] for MAVIS GARRIDO POCT-GLUCOSE [id number] 12:49:00 Test Item Value Reference Range Interpretation Comments POC-GLUCOSE METER 221 mg/dL 70-110 H : TESTED A T [facility] 6720 (AllurentAKER) (test code = [facility], 1538) 14[address]: Associate Field Service Engineer/Techni tammy ID = [id number] for FAROOQ ARECHIGA, MAVIS Screen, [id number] 11:54:00 Test Item Value Reference Range Interpretation Comments Preg Test, Ur (test code = 2112-1) Negative [facility] Diego[facility]REG[facility]NC[facility] S[facility]EN, [id number] 11:54:00 Test Item Value Reference Range Interpretation Comments TEST URINE (BEAKER) (test Negative code = 583) POCT-GLUCOSE [id number] 09:11:00 Test Item Value Reference Range Interpretation Comments POC-GLUCOSE METER 112 mg/dL 70-110 H : TESTED A T [facility] (BEAKER) (test code = [facility], 1538) 18107: Associate Field Service Engineer/Techni tammy ID = [id number] for FAROOQ NT, MAVIS BASIC METABOLIC [id number] 06:50:00 Test Item Value Reference Range Interpretation [...] S NOT APPLICABLE FOR DIALYSIS PATIEN TS. [id number] 06:38:00 Test Item Value Reference Range Interpretation Comments PHOSPHORUS (BEAKER) (test code = 3.9 mg/dL 2.3-4.7 604) [id number] 06:38:00 Test Item Value Reference Range Interpretation Comments MAGNESIUM (BEAKER) (test code = 1.9 mg/dL 1.6-2.6 627) PROTHROMBIN TIME/[id number] 06:12:00 Test Item Value Reference Range Interpretation [...] mechanical heart valves.CBC W/PLT COUNT & AUTO [id number] 06:06:00 Test Item Value Reference Range Interpretation [...] 0-1 PERCENT (BEAKER) (test code = 2801) [id number] 04:27:00 Test Item Value Reference Range Interpretation Comments RPR (test code = 02045-7) Nonreactive Nonreactive Lab Interpretation (test code = Normal 63358-4) [facility] 04:[facility]00 Test Item Value Reference Range Interpretation Comments RPR SCREEN (BEAKER) (test code = Nonreactive Nonreactive 420) MR, MRA, BRAIN, WITHOUT [id number] 03:28:00Reason for exam:- >StrokeWhat is the patient's [...] cervical ICAs and vertebral arteries. Signed: Yg Ortiz MDReport Verified Date/Time: 07/17/2019 03:28:33 MR, MRA, NECK, WITHOUT IV [id number] 03:28:00FINAL REPORT MR, BRAIN, WITHOUT CONTRAST, MR, [...] cervical ICAs and vertebral arteries. Signed: Yg Ortiz MDReport Verified Date/Time: 07/17/2019 03:28:33 MR, BRAIN, WITHOUT [id number] 03:28:00 Reason for exam:->StrokeWhat is the patient's [...] cervical ICAs and vertebral arteries. Signed: Yg Ortiz MDReport Verified Date/Time: 07/17/2019 03:28:33 MR MRA head without [id number] 03:28:00 Interface, External Ris In - 07/17/2019 [...] cervical ICAs and vertebral arteries. Signed: Yg Ortiz MDReport Verified Date/Time: 07/17/2019 03:28:33 [facility] CampusMR MRA neck without [id number] 03:28:00Interface, External Ris In - 07/17/2019 4:57 [...] cervical ICAs and vertebral arteries. Signed: Yg Ortiz MDReport Verified Date/Time: 07/17/2019 03:28:33 [facility] CampusMR brain without IV [id number] 03:28:00Interface, External Ris In - 07/17/2019 4:57 [...] focal stenoses and severe stenosis of right WILLAIM, A1 segment versus hypoplasia. Patent bilateral cervical ICAs and vertebral arteries. Signed: Yg Ortiz [facility]epun[facility] hospital Verified Date/Time: 07/17/2019 03:28:33 [facility] CampusPOCT-GLUCOSE [id number] 21:16:00 Test Item Value Reference Range Interpretation Comments POC-GLUCOSE METER 143 mg/dL 70-110 H : TESTED A T [facility] ([employer]) (test code = [facility], 153) [address]: Associate Field Service Engineer/Techni tammy ID = [id number] for JUSTIN BLAKEJANELL REYES POCT-GLUCOSE [id number] 17:33:00 Test Item Value Reference Range Interpretation Comments POC-GLUCOSE METER 108 mg/dL 70-110 : TESTED A T [facility] ([employer]) (test code = [place] [facility], 1538) 76229: Associate Field Service Engineer/Techni tammy ID = [id number] for BETSEY YOU TAVONMan JJ POCT-GLUCOSE [id number] 17:25:00 Test Item Value Reference Range Interpretation Comments POC-GLUCOSE METER 155 mg/dL 70-110 H : TESTED A T [facility] 6720 (TAINA) (test code = [place] [facility], 1538) 20569: Associate Field Service Engineer/Techni tammy ID = [id number] for SIMON CHO HEMODIALYSIS [id number] 17:23:31Tavon Mcduffie RN 07/16/2019 5:24 PMVerified HD [...] Results Component Value Date HEPBSAG Nonreactive 07/16/2019[facility] DiegoHEPATITIS B SURFACE [id number] 14:30:00 Test Item Value Reference Range Interpretation Comments HEPATITIS B SURFACE ANTIGEN (2) Nonreactive Nonreactive (TAINA) (test code = 2585) 2D Echo W/Doppler(CW/PW/Color)2019-07-16 14:11:04Ejection FractionSLEH ECHO HEARTLAB MKCKESSON CPACSInterface, External Ris In - 07/16/2019 2:11 PM C STTransthoracic Echocardiography Report (TTE) Demographics Patient Name ARCHANA WOO Date of Study 07/16/2019 Gender Female Visit Number [id number] Race Unknown Room Number 7605 Number Date of 1975 Referring Arvin Ann Physician Age 43 year(s) Health Clinician Daja Arthur, [facility] Wire Fence Builder Yanna Mcdonald Interpreting Marcella Yanez MD Ciolan [...] Velocity: 2.31 m/s TR Gradient: 21.42 mmHgCHI [facility] Affairs Medical Center San DiegoPOCT- GLUCOSE [id number] 12:17:00 Test Item Value Reference Range Interpretation Comments POC-GLUCOSE METER 146 mg/dL 70-110 H : TESTED A T [facility] 6720 (BEAKER) (test code = [facility], 1538) [address]: Associate Field Service Engineer/Techni tammy ID = [id number] for MAVIS GARRIDO BASIC METABOLIC [id number] 09:26:00 Test Item Value Reference Range Interpretation [...] NOT APPLICABLE FOR DIALYSIS PATIEN TS. POCT-GLUCOSE [id number] 08:27:00 Test Item Value Reference Range Interpretation Comments POC-GLUCOSE METER 106 mg/dL 70-110 : TESTED A T [facility] 6720 (BEAKER) (test code = [facility], 1538) 53424: Associate Field Service Engineer/Techni tammy ID = [id number] for SIMON CHO POCT-GLUCOSE [id number] 07:46:00 Test Item Value Reference Range Interpretation Comments POC-GLUCOSE METER 171 mg/dL 70-110 H : TESTED A T [facility] 6720 (BEAKER) (test code [facility]AY[facility], = 1538) 22034: Associate Field Service Engineer/Techni tammy ID = [id number] for YASMINE VO, CHEST, 1 VIEW, NON [id number] 07:36:00Reason for exam:- >baselineShould this be performed [...] the tricuspid valve. Low lung volumes. Signed: Chandu Chery MDReport Verified Date/Time: 07/16/2019 07:36:01 Reading Location: [address] Body Reading Room HEMOGLOBIN [id number] 06:42:00 Test Item Value Reference Range Interpretation Comments HEMOGLOBIN A1C (BEAKER) (test code = 9.5 % 4.3-6.1 H 368) BASIC METABOLIC [id number] 06:27:00 Test Item Value Reference Range Interpretation [...] 358) GLUCOSE RANDOM 535 mg/dL 70-105 HH ([facility]) (test code = 652) CALCIUM ([facility]) 8.2 mg/dL 8.4-10.2 L (test code = 697) EGFR ([facility]) (test 7 mL/min/1.73 ESTIMAT ED GFR IS code = 1092) sq m NOT ACCURATE CREATININE CLEARANCE IN PREDICTING GLOMERULAR FILTRATION RATE . ESTIMATED GFR I S NOT APPLICABLE FOR DIALYSIS PATIEN TS. HIV-1 Antigen with HIV-1/2 [id number] 05:52:00 Test Item Value Reference Range Interpretation Comments HIV-1 Antigen with HIV 1&2 Nonreactive Nonreactive Antibody (test code = 50930-9) Lab Interpretation (test code = Normal 46595-4) [facility] ANTIGEN WITH HIV-1/2 [id number] 05:52:00 Test Item Value Reference Range Interpretation Comments HIV-1 ANTIGEN WITH HIV 1\\T\\2 Nonreactive Nonreactive ANTIBODY (2) ([facility]) (test code = 2586) POCT-GLUCOSE [id number] 05:38:00 Test Item Value Reference Range Interpretation Comments POC-GLUCOSE METER 420 mg/dL 70-110 HH : Notified RN/MD: TESTED ([facility]) (test code AT [facility] [address] = 1538) [facility], [facility] 30: Associate Field Service Engineer/Techni tammy ID = [id number] for YASMINE VO Vitamin B12 and [id number] 05:11:00 Test Item Value Reference Range Interpretation Comments Vitamin B12 (test code = 2132-9) 525 pg/mL 213-816 Folate (test code = 2284-8) 6.5 ng/mL >=7.0 L Lab Interpretation (test code = Abnormal 14907-4) [facility] CenterTSH/FREE T4 IF [id number] 05:11:00 Test Item Value Reference Range Interpretation Comments THYROID STIMULATING HORMONE 0.87 uIU/mL 0.35-4.94 ([facility]) (test code = 772) VITAMIN B12 AND [id number] 05:11:00 Test Item Value Reference Range Interpretation Comments VITAMIN B12 ([facility]) (test code = 525 pg/mL 213-816 774) FOLATE ([facility]) (test code = 362) 6.5 ng/mL >=7.0 L BASIC METABOLIC [id number] 04:57:00 Test Item Value Reference Range Interpretation [...] NOT APPLICABLE FOR DIALYSIS PATIEN TS. Lipid [id number] 04:47:00 Test Item Value Reference Range Interpretation Comments Triglycerides (test 100 mg/dL code = 2571-8) Cholesterol (test code 177 mg/dL = 3-3) HDL (test code = 48 mg/dL 2084-9) LDL Calculated (test 109 mg/dL code = 42216-9) YAKELIN (test code = YAKELIN) Triglyceride Reference Range: Low Risk <150 Borderline 150-199 High Risk 200-499 Very High Risk >=500 Cholesterol Reference Range: Low Risk <200 Borderline 200-239 High Risk >240 HDL Cholesterol Reference Range: Low Risk >=60 High Risk <40 LDL Cholesterol Reference Range: Optimal <100 Near Optimal 100-129 Borderline 130-159 High 160-189 Very High >=190 [facility] [id number] 04:47:00 Test Item Value Reference Range Interpretation Comments PHOSPHORUS (BEAKER) (test code = 5.5 mg/dL 2.3-4.7 H 604) [id number] 04:47:00 Test Item Value Reference Range Interpretation Comments MAGNESIUM (BEAKER) (test code = 2.0 mg/dL 1.6-2.6 627) LIPID [id number] 04:47:00 Test Item Value Reference Range Interpretation [...] 130-159 High 160-189 Very High >=190HEPATIC FUNCTION [id number] 04:47:00 Test Item Value Reference Range Interpretation [...] = 99 U/L 6-55 H 347) PROTHROMBIN [id number] 04:11:00 Test Item Value Reference Range Interpretation [...] mechanical heart valves.CBC W/PLT COUNT & AUTO [id number] 04:03:00 Test Item Value Reference Range Interpretation [...] EOSINOPHILS ABSOLUTE COUNT 0.12 K/ L 0.04-0.36 (AKER) (test code = 416) BASOPHILS ABSOLUTE COUNT (BEAKER) 0.05 K/ L 0.01-0.08 (test code = 417) IMMATURE GRANULOCYTES-RELATIVE 0 % 0-1 PERCENT ([facility]) (test code = 2801) POCT-GLUCOSE [id number] 03:47:00 Test Item Value Reference Range Interpretation Comments POC-GLUCOSE METER > mg/dL 70-110 HH : Notified RN/MD: TESTED ([facility]) (test code = AT [facility] [address] [employer] [facility] 1538) [facility], [facility] 30: Associate Field Service Engineer/Techni tammy ID = [id number] for SYLVIA JONES FACTOR 5 LEIDEN PCR (THROMBOTIC RISK)2017-03-24 19:24:00 Test Item Value Reference Range Interpretation Comments FACTOR V LEIDEN Negative for the R506Q ([facility]) (test code = (Factor V Leiden) 718) mutation [id number] Martínez Wang MD ([facility]) (test code = (electronic signature) 6409) This test is a genotyping assay which [...] was developed and its performance characteristics [facility], Section of Molecular Pathology. It has not been cleared or approved by the U.S. Food and Drug Administration (FDA), since FDA approval is not requ ired for clinical use of the test. Validation was done as required by the Clinical Laboratory Improvement Amendments of 1988.POCT-GLUCOSE [id number] 07:28:00 Test Item Value Reference Range Interpretation Comments POC-GLUCOSE METER 200 mg/dL 70-110 H TESTED AT [facility] 6720 ([facility]) (test code = [place] [facility] 1538) [address] POCT-GLUCOSE [id number] 21:18:00 Test Item Value Reference Range Interpretation Comments POC-GLUCOSE METER 211 mg/dL 70-110 H TESTED AT [facility] 67 ([facility]) (test code = [facility] 1538) [address] PROTEIN, RANDOM [id number] 19:43:00 Test Item Value Reference Range Interpretation Comments PROTEIN, URINE (BEAKER) (test code 286 mg/dL 0-14 H = 1569) CREATININE, RANDOM [id number] 18:27:00 Test Item Value Reference Range Interpretation Comments [facility]ININE URINE [facility] (test 29.3 mg/dL code = 375) [...] Normal Hexagonal (BEAKER) (test code = Phospholipid 618302) [id number] Martínez Wang MD ([facility]) (test code = (electronic 1990) signature) DRVV SCREEN RATIO 0.84 <1.20 ([facility] (test code = 2707) Effective 12/20/2013: Test Method ChangeDRVV Screen Ratio, DRVV 1/1 Screen Ratio, DRVV Confirm Ratio,DRVV Normalized Ratio Reference Range: <1.2Protime Reference Range ChangeNew: 11.7-14.7 Previous: 9.8-12.0PTT Reference Range ChangeNew: 22.5-36.0 Previous: 25.8-34.5URINE [id number] 11:40:00 Test Item Value Reference Range Interpretation Comments CULTURE (BEAKER) (test 20-29,000 col/mL skin code = 1095) lei POCT-GLUCOSE [id number] 08:33:00 Test Item Value Reference Range Interpretation Comments POC-GLUCOSE METER 293 mg/dL 70-110 H TESTED AT [facility] 67[address] ([facility]) (test code = [facility] 1538) [address] VITAMIN D, 81-[id number] 07:49:00 Test Item Value Reference Range Interpretation Comments VITAMIN D 25-OH (BEAKER) (test code = < ng/mL 13.0-47.8 L 2764) CBC W/PLT COUNT & AUTO [id number] 05:59:00 Test Item Value Reference Range Interpretation Comments WHITE BLOOD CELL COUNT (BEAKER) 9.4 K/ L 3.5-10.5 (test code = [...] (BEAKER) (test code = 2801) BASIC METABOLIC [id number] 05:38:00 Test Item Value Reference Range Interpretation [...] S NOT APPLICABLE FOR DIALYSIS PATIEN TS. [id number] 05:37:00 Test Item Value Reference Range Interpretation Comments PHOSPHORUS (BEAKER) (test code = 4.1 mg/dL 2.3-4.7 604) [id number] 05:37:00 Test Item Value Reference Range Interpretation Comments MAGNESIUM (BEAKER) (test code = 1.7 mg/dL 1.6-2.6 627) PTH, [id number] 05:34:00 Test Item Value Reference Range Interpretation Comments PARATHYROID HORMONE INTACT 57.2 pg/mL 8.5-72.5 (BEAKER) (test code = 577) Effective 07/04/2014: Reference Range ChangeNew: 8.5-72.5 Previous: 15.0-90.0 CARDIOLIPIN ANTIBODIES, IGG AND [id number] 22:36:00 Test Item Value Reference Range Interpretation Comments ANTICARDIOLIPIN IGG ANTIBODY ([facility]) < GPL (test code = 712) ANTICARDIOLIPIN IGM ANTIBODY ([facility]) 2.8 MPL (test code = 713) Anticardiolipin IgG Result Interpretation:NEG: <20 GPL; U/mlPOS: >/=20 GPL; U/mlAnticardiolipin IgM Result Interpretation:NEG: <20 MPL; U/mlPOS: >/=20 MPL; U/mlPOCT-GLUCOSE [id number] 21:25:00 Test Item Value Reference Range Interpretation Comments POC-GLUCOSE METER 198 mg/dL 70-110 H TESTED AT [place] [address] ([facility]) (test code = [facility] 1538) [address] POCT-GLUCOSE [id number] 16:29:00 Test Item Value Reference Range Interpretation Comments POC-GLUCOSE METER 296 mg/dL 70-110 H TESTED AT [place] [address] ([facility]) (test code = [facility] 1538) [address] ANTI-NUCLEAR ANTIBODY (MARY)2017-03-18 15:30:00 Test Item Value Reference Range Interpretation Comments ANTI-NUCLEAR ANTIBODY (MARY) ([facility]) Negative Negative (test code = 418) HEXAGONAL [id number] 13:21:00 Test Item Value Reference Range Interpretation Comments HEXAGONAL PHOSPHOLIPID ([facility]) Negative (test code = 1790) POCT-GLUCOSE [id number] 12:15:00 Test Item Value Reference Range Interpretation Comments POC-GLUCOSE METER 140 mg/dL 70-110 H TESTED AT [place] [address] ([facility]) (test code = [facility] 1538) [address] PROTEIN C [id number] 11:44:00 Test Item Value Reference Range Interpretation Comments PROTEIN C ACTIVITY ([employer]) (test 155.0 % 70.0-130.0 H code = 582) Effective 12/20/2013: Reference Range Change-Adult onlyNew: 70.0-130.0 Previous: 70.0-140.0See Protein C Antigen.ANTITHROMBIN [id number] 11:43:00 Test Item Value Reference Range Interpretation Comments [facility] 87.0 % 80.0-120.0 (test code = 711) Effective 12/20/2013: Reference Range Change-Adult onlyNew: 80.0-120.0 Previous: 90.0-128.0POCT-GLUCOSE [id number] 08:17:00 Test Item Value Reference Range Interpretation Comments POC-GLUCOSE METER 107 mg/dL 70-110 TESTED AT [facility] 6720 (BEAKER) (test code = [place] 1538) [address] BASIC METABOLIC [id number] 06:32:00 Test Item Value Reference Range Interpretation [...] PATIEN TS. CBC W/PLT COUNT & AUTO [id number] 05:56:00 Test Item Value Reference Range Interpretation [...] PERCENT (BEAKER) (test code = 2801) POCT-GLUCOSE [id number] 04:32:00 Test Item Value Reference Range Interpretation Comments POC-GLUCOSE METER 107 mg/dL 70-110 [facility] [place] [address] [facility] (test code = [facility] 1538) [address] POCT-GLUCOSE [id number] 22:21:00 Test Item Value Reference Range Interpretation Comments POC-GLUCOSE METER 118 mg/dL 70-110 H TESTED AT [place] [id number] ([facility]) (test code = [facility] 1538) [address] POCT-GLUCOSE [id number] 21:22:00 Test Item Value Reference Range Interpretation Comments POC-GLUCOSE METER 52 mg/dL 70-110 L Notified Isabel Ro MD/TESTED AT (BEAKER) (test code = [facility] [address] 1538) [facility] [address] MICROALBUMIN, RANDOM [id number] 17:57:00 Test Item Value Reference Range Interpretation Comments MICROALBUMIN URINE (BEAKER) (test > mg/dL code = 1794) Reference Range: No NormalsURINALYSIS W/ [id number] 17:36:00 Test Item Value Reference Range Interpretation [...] 516) SOURCE(BEAKER) (test code = Urine, Voided 5277) SCREEN, [id number] 17:36:00 Test Item Value Reference Range Interpretation Comments TEST URINE (BEAKER) (test Negative code = 583) CREATININE, RANDOM [id number] 17:35:00 Test Item Value Reference Range Interpretation Comments CREATININE URINE (BEAKER) (test 33.9 mg/dL code = 375) Reference Range: No NormalsSODIUM, RANDOM [id number] 17:35:00 Test Item Value Reference Range Interpretation Comments SODIUM URINE ([facility]) (test code = 63 meq/L 243) Reference Range: No NormalsPOCT-GLUCOSE [id number] 17:34:00 Test Item Value Reference Range Interpretation Comments POC-GLUCOSE METER 118 mg/dL 70-110 H TESTED AT [place] [address] ([facility]) (test code = [facility] 1538) [address] POCT-GLUCOSE [id number] 13:28:00 Test Item Value Reference Range Interpretation Comments POC-GLUCOSE METER 71 mg/dL 70-110 TESTED AT [place] [address] ([facility]) (test code = [facility] [address] 1538) POCT-GLUCOSE [id number] 10:37:00 Test Item Value Reference Range Interpretation Comments POC-GLUCOSE METER 144 mg/dL 70-110 H TESTED AT [place] [address] ([facility]) (test code = [facility] 1538) [address] POCT-GLUCOSE [id number] 07:18:00 Test Item Value Reference Range Interpretation Comments POC-GLUCOSE METER 60 mg/dL 70-110 L TESTED AT [place] [address] ([facility]) (test code = [facility] [address] 1538) CBC W/PLT COUNT & AUTO [id number] 05:51:00 Test Item Value Reference Range Interpretation Comments WHITE BLOOD CELL COUNT ([facility]) 11.4 K/ L 3.5-10.5 H (test code = 775) RED BLOOD CELL COUNT ([facility]) 3.81 M/ L 3.93-5.22 L (test code = 761) HEMOGLOBIN (BEAKER) (test code = 11.6 GM/DL 11.2-15.7 410) HEMATOCRIT ([facility]) (test code = 34.5 % 34.1-44.9 411) MEAN CORPUSCULAR VOLUME (AKER) 90.6 fL 79.4-94.8 (test code = 753) MEAN CORPUSCULAR HEMOGLOBIN 30.4 pg 25.6-32.2 (AKER) (test code = 751) MEAN CORPUSCULAR HEMOGLOBIN [...] (BEAKER) (test code = 2801) BASIC METABOLIC [id number] 05:51:00 Test Item Value Reference Range Interpretation [...] NOT APPLICABLE FOR DIALYSIS PATIEN TS. POCT-GLUCOSE [id number] 21:41:00 Test Item Value Reference Range Interpretation Comments POC-GLUCOSE METER 287 mg/dL 70-110 H TESTED AT [facility] [address] (BEAKER) (test code = [address] [place] 1538) [address] BASIC METABOLIC [id number] 12:35:00 Test Item Value Reference Range Interpretation [...] report . CBC W/PLT COUNT & AUTO [id number] 04:54:00 Test Item Value Reference Range Interpretation [...] 0-1 PERCENT (BEAKER) (test code = 2801) [id number] 20:17:00 Test Item Value Reference Range Interpretation Comments RPR SCREEN (BEAKER) (test code = Nonreactive Nonreactive 420) POCT-GLUCOSE [id number] 18:09:00 Test Item Value Reference Range Interpretation Comments POC-GLUCOSE METER 215 mg/dL 70-110 H TESTED AT [facility] 67[address] (BEAKER) (test code = [place] 1538) [address] CBC W/PLT COUNT & AUTO [id number] 11:54:00 Test Item Value Reference Range Interpretation [...] (BEAKER) (test code = Normal 762) SEDIMENTATION [id number] 10:27:00 Test Item Value Reference Range Interpretation Comments SEDIMENTATION RATE, ERYTHROCYTE 79 mm/HR 0-20 H (BEAKER) (test code = 766) HEMOGLOBIN [id number] 09:33:00 Test Item Value Reference Range Interpretation Comments HEMOGLOBIN A1C (BEAKER) (test code = 9.8 % 4.3-6.1 H 368) VITAMIN [id number] 09:14:00 Test Item Value Reference Range Interpretation Comments VITAMIN B12 (BEAKER) (test code = 1790 pg/mL 213-816 H 774) TSH/FREE T4 IF [id number] 09:14:00 Test Item Value Reference Range Interpretation Comments THYROID STIMULATING HORMONE 1.08 uIU/mL 0.35-4.94 (BEAKER) (test code = 772) BASIC METABOLIC [id number] 08:52:00 Test Item Value Reference Range Interpretation [...] DATA TO CALCULA TE ESTIMATED GFR. FastingLIPID [id number] 08:51:00 Test Item Value Reference Range Interpretation [...] High 160-189 Very High >=190 FastingHCG, QUANTITATIVE, [id number] 01:43:00 Test Item Value Reference Range Interpretation Comments GONADOTROPIN, CHORIONIC (HCG) QUANT < mIU/mL 0-10 (BEAKER) (test code = 649) Non- Females: <10 mIU/mL Females: Gestation Age Reference Range(mIU/mL) 0.2-1 Week 5-50 1-2 Weeks 50-500 2-3 Weeks 100-5,000 3-4Weeks 500-10,000 4-5 Weeks 1,000-50,000 5-6 Weeks 10,000-100,000 6-8 Weeks 15,000-200,000 2-3 Months 10,000-100,000COMPREHENSIVE METABOLIC [id number] 21:57:00 Test Item Value Reference Range Interpretation [...] 358) GLUCOSE RANDOM 285 mg/dL 70-105 H (AKER) (test code = 652) CALCIUM (BEAKER) 7.9 mg/dL 8.4-10.2 L (test code = 697) AST (SGOT) (BEAKER) 16 U/L 5-34 (test code = 353) ALT (SGPT) (BEAKER) 14 U/L 6-55 (test code = 347) EGFR (AKER) (test mL/min/1.73 INSUFFIC IENT code = 1092) sq m CLINICAL DATA T O CALCULATE ESTIM ATED GFR. Unit CollectPOCT-GLUCOSE [id number] 21:50:00 Test Item Value Reference Range Interpretation Comments POC-GLUCOSE METER 278 mg/dL 70-110 H TESTED AT [facility] 67[address] ([facility]) (test code = [place] [address]38) [address]
== END 2020-05-18 03:18 | disposition short-term general hospital (02) ==
LOC: ER 18:24
DX: L03.116 Cellulitis of left lower limb (principal); E11.22 Type 2 diabetes mellitus with diabetic chronic kidney disease; I12.0 Hypertensive chronic kidney disease with stage 5 chronic kidney disease or end stage renal disease; N18.5 Chronic kidney disease, stage 5; Z99.2 Dependence on renal dialysis; F17.210 Nicotine dependence, cigarettes, uncomplicated; Z85.850 Personal history of malignant neoplasm of thyroid
CPT/HCPCS: 96365; 96367; 87040 ×2; 87070; 85025; 80048; 36415; 82150; 82550; 87205; 85610; 80076; 83605; 85730; 85652; 83690; 84145; 71045; 73630; 96375; 99285; J0360; J3010 ×2; J3370; J2543; J7050; J2405 ×2

== ENCOUNTER 2020-07-05 12:32 | Observation (INO) | payer OTHER ==
--- OUTSIDE RECORDS SUMMARY | 2020-07-05 12:42 | XMS REPORT | Clinical Summary ---
:1975 Author Organization [facility] Address [address] [place] [address] Care Team Providers Name Role Phone Unavailable [...] Active (REGLAN) 10 MG 4 (four) times tablet [...] Take 30 mg by mouth 0 06/01/2019 Active (CYMBALTA) 30 MG daily. capsule famotidine (PEPCID) Take 20 mg by mouth 0 06/01/2019 Active 20 MG tablet daily. furosemide (LASIX) Take 80 mg by mouth 0 06/01/2019 Active 40 MG tablet 2 (two) times daily. gabapentin Take 100 mg by 0 06/01/2019 Act selvin (NEURONTIN) 100 MG mouth every Thursday, capsule Thursday, Thursday. lisinopril Take 20 mg by mouth 0 06/01/2019 Active (PRINIVIL,ZESTRIL) 2 (two) times 20 MG tablet daily. traMADol (ULTRAM) 50 Take 50 mg by mouth 0 9 Active mg tablet daily as needed FOR PAIN. sevelamer (RENVELA) Take 1 tablet (800 270 tablet 3 06/26/2020 Active 800 mg tablet mg total) by mouth 1 3 (three) times daily with meals. amLODIPine (NORVASC) Take 1 tablet (5 mg [...] mouth 0 tablet nightly for 30 days. sevelamer (RENVELA) Take 1 tablet (800 90 tablet 0 05/24/2020 800 mg tablet mg total) by mouth 0 3 (three) times daily with meals for 30 days. amoxicillin-clavulan Take 1 tablet by 14 tablet 0 05/24/2020 1 ate (AUGMENTIN) mouth 2 (two) times 0 875-125 mg per daily for 7 days. tablet Active Problems Patient Care Coordination Note Formatting of this note might be differe nt from the original. Subjective: Addendum: 05/20/2020 Podiatry consult no te Right heel pressure ulcer Stage 3 See OR note Problem Noted Date Cellulitis of second toe [...] Jada Thy, EXTREMITY LOW ER DPM 05/21/2020 Orders Only General Internal Medicine 05/21/2020 Travel 05/18/2020 - Hospital Encounter General Internal Peter Cellu litis of second toe of right foot; 05/24/2020 Medicine MD Daxa Blindness of both eyes; Nikolas Giles Type 2 diabet es mellitus with other specified complication, with long-term current use of insulin ([facility]); MD Zhao ESRD on dialysis ([facility]); Niranjan Gamez, Cerebrovascu lar 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 ([facility]); Gastroparesis; Acute idiopathi c gout involving toe of right foot; Stable prolifer ative diabetic retinopathy associated with diabetes mellitus due to underlying condition, unspecified laterality ([facility]); Other specified hypothyroidism 07/15/2019 - Hospital Encounter General Internal Stella, Blind ness of both eyes (Primary Dx); 07/18/2019 Medicine MD Negar Cerebrovascular accident (CVA) due to em bolism of left middle cerebral artery ([facility]); Seth Type 2 diabetes mellitus with other specified complication, with long-term current use of insulin ([facility]); MD Arvin ESRD on dialysis ([facility]); Shania Schultz Left sided nu mbness; MD Graham Anxiety; Ann Lim, Diabetic nep hropathy associated with diabetes mellitus due to underlying condition ([facility]); Other specified hypothyroidism; Acute metabolic encephalopathy; DELMA (acute kidn ey injury) ([facility]) 07/15/2019 Travel 07/15/2019 Documentation Internal [facility], Medicine MD Negar after 07/05/2019 Family History Medical History Relation Name Comments [...] Vital Signs Vital Sign Reading Time Taken Comments Blood Pressure 133/63 05/24/2020 7:48 AM CDT Pulse 89 05/24/2020 7:48 AM CDT Temperature 36.8 C (98.2 F) 05/24/2020 7:48 AM CDT Respiratory Rate 18 05/24/2020 7:48 AM CDT Oxygen Saturation 98% 05/24/2020 7:48 AM CDT Inhaled Oxygen Concentration 21% 05/21/2020 7:52 [...] IPPE) URINE MICROALBUMIN 03/17/2018 03/17/2017 PNEUMOCOCCAL VACCINE 0-64 YRS (2 of 3 11/24/2019 11/23/2018 - PCV13) INFLUENZA VACCINE (#1) 2020 07/23/2013 HEMOGLOBIN A1C 08/18/2020 05/18/2020, 07/16/2019, 03/15/2017 DIABETIC FOOT EXAM 05/20/2021 05/20/2020 LIPID PANEL 07/16/2022 07/16/2019, 03/15/2017 Procedures Procedure Name Priority Date/Time Associated Comments Diagnosis POCT-GLUCOSE METER Routine 05/24/2020 7:58 Resul ts for this AM CDT procedure are i n the results section. CBC W/PLT COUNT & Routine 05/24/2020 4:39 Result s for this AUTO DIFFERENTIAL AM CDT procedure are in the results section. PHOSPHORUS Routine 05/24/2020 4:39 Results for this AM CDT procedure are i n the results section. BASIC METABOLIC PANEL Routine 05/24/2020 4:39 Re sults for this (7) AM CDT procedure are i n the results section. CBC W/PLT COUNT & Routine 05/24/2020 4:39 Result s for this AUTO DIFFERENTIAL AM CDT procedure are in the results section. POCT-GLUCOSE METER Routine 05/23/2020 8:35 Resul ts for this PM CDT procedure are i n the results section. HEMODIALYSIS Routine 05/23/2020 11:33 INPATIENT AM CDT POCT-GLUCOSE METER Routine 05/23/2020 11:26 Resul ts for this AM CDT procedure are i n the results section. POCT-GLUCOSE METER Routine 05/23/2020 7:19 Resul ts for this AM CDT procedure are i n the results section. CBC W/PLT COUNT & Routine 05/23/2020 4:02 Result s for this AUTO DIFFERENTIAL AM CDT procedure are in the results section. PHOSPHORUS Routine 05/23/2020 4:02 Results for this AM CDT procedure are i n the results section. BASIC METABOLIC PANEL Routine 05/23/2020 4:02 Re sults for this (7) AM CDT procedure are i n the results section. CBC W/PLT COUNT & Routine 05/23/2020 4:02 Result s for this AUTO DIFFERENTIAL AM CDT procedure are in the results section. VANCOMYCIN LEVEL, Routine 05/23/2020 [...] the results section. CBC W/PLT COUNT & Routine 05/22/2020 5:00 Result s for this AUTO DIFFERENTIAL AM CDT procedure are in the results section. PHOSPHORUS Routine 05/22/2020 5:00 Results for this AM CDT procedure are i n the results section. BASIC METABOLIC PANEL Routine 05/22/2020 5:00 Re sults for this (7) AM CDT procedure are i n the results section. CBC W/PLT COUNT & Routine 05/22/2020 5:00 Result s for this AUTO DIFFERENTIAL AM CDT procedure are in the results section. POCT-GLUCOSE METER Routine 05/21/2020 9:36 Resul ts for this PM CDT procedure are i n the results section. TISSUE EXAM AP Routine 05/21/2020 12:36 Results for this PM CDT procedure are i n the results section. POCT-GLUCOSE METER Routine 05/21/2020 12:28 Resul ts for this PM CDT procedure are i n the results section. SURGICALLY OBTAINED Routine 05/21/2020 12:18 Resu lts for this CULTURE + GRAM STAIN PM CDT procedu re are in the results section. ANAEROBIC CULTURE Routine 05/21/2020 12:18 Result s for this PM CDT procedure are i n the results section. SURGICALLY OBTAINED Routine 05/21/2020 12:16 Resu lts for this CULTURE + GRAM STAIN PM CDT procedu re are in the results section. ANAEROBIC CULTURE Routine 05/21/2020 12:16 Result s for this PM CDT procedure are i n the results section. DEBRIDEMENT/I&D,WOUND 05/21/2020 11:30 Infected wound EXTREMITY LOWER AM CDT ECG 12-LEAD Routine 05/21/2020 9:24 AM CDT Procedure Note - Interface, External Ris In - 07/05/2020 1:08 AM SEROLOGY TECHNICIAN Ventricular Rate 79 BPM Atrial Rate 79 BPM P-R Interval 142 ms QRS Duration 76 ms Q-T Interval 420 ms QTC Calculation(Bazett) 481 ms P Gibson 66 degrees R Gibson -4 degrees T Gibson 94 degrees Normal sinus rhythm Abnormal QRS-T angle, consid er primary T wave abnormality Prolonged QT Abnormal ECG No previous ECGs available POCT-GLUCOSE METER Routine 05/21/2020 7:44 AM CDT Results for this procedure are i n the results section . ABORH, MANUAL Routine 05/21/2020 4:59 AM CDT Res ults for this procedure are i n the results section . CBC W/PLT COUNT & AUTO Routine 05/21/2020 3:52 AM CDT Results for this DIFFERENTIAL procedure are i n the results section . TYPE AND SCREEN, AUTOMATED Routine 05/21/2020 3:52 AM CDT Results for this procedure are i n the results section . HCG, SERUM, QUALITATIVE STAT 05/21/2020 3:52 AM CDT Results for this procedure are i n the results section . APTT Routine 05/21/2020 3:52 AM CDT Resu lts for this procedure are i n the results section . PROTHROMBIN TIME/INR Routine 05/21/2020 3:52 AM CDT Results for this procedure are i n the results section . IRON, TIBC, % SAT. (WITHOUT Routine 05/21/2020 3:52 AM CDT Results for this FERRITIN) procedure are i n the results section . VANCOMYCIN LEVEL, RANDOM Routine 05/21/2020 3:52 AM CDT Results for this procedure are i n the results section . PHOSPHORUS Routine 05/21/2020 3:52 AM CDT Resu lts for this procedure are i n the results section . MAGNESIUM Routine 05/21/2020 3:52 AM CDT Resu lts for this procedure are i n the results section . BASIC METABOLIC PANEL (7) Routine 05/21/2020 3:52 AM CDT Results for this procedure are i n the results section . CBC W/PLT COUNT & AUTO Routine 05/21/2020 3:52 AM CDT Results for this DIFFERENTIAL procedure are i n the results section . POCT-GLUCOSE METER Routine 05/20/2020 9:08 PM CDT Results for this procedure are i n the results section . POCT-GLUCOSE METER Routine 05/20/2020 3:51 PM CDT Results for this procedure are i n the results section . POCT-GLUCOSE METER Routine 05/20/2020 11:20 AM CDT Results for this procedure are i n the results section . POCT-GLUCOSE METER Routine 05/20/2020 7:21 AM CDT Results for this procedure are i n the results section . TSH/FREE T4 IF INDICATED Routine 05/20/2020 6:19 AM CDT Results for this procedure are i n the results section . PHOSPHORUS Routine 05/20/2020 6:19 AM CDT Resu lts for this procedure are i n the results section . MAGNESIUM Routine 05/20/2020 6:19 AM CDT Resu lts for this procedure are i n the results section . BASIC METABOLIC PANEL (7) Routine 05/20/2020 6:19 AM CDT Results for this procedure are i n the results section . CBC W/PLT COUNT & AUTO Routine 05/20/2020 5:07 AM CDT Results for this DIFFERENTIAL procedure are i n the results section . CBC W/PLT COUNT & AUTO Routine 05/20/2020 5:07 AM CDT Results for this DIFFERENTIAL procedure are i n the results section . POCT-GLUCOSE METER Routine 05/19/2020 10:01 PM CDT Results for this procedure are i n the results section . POCT-GLUCOSE METER Routine 05/19/2020 4:24 PM CDT Results for this procedure are i n the results section . POCT-GLUCOSE METER Routine 05/19/2020 11:20 AM CDT Results for this procedure are i n the results section . CBC W/PLT COUNT & AUTO Routine 05/19/2020 8:33 AM CDT Results for this DIFFERENTIAL procedure are i n the results section . PHOSPHORUS Routine 05/19/2020 8:33 AM CDT Resu lts for this procedure are i n the results section . MAGNESIUM Routine 05/19/2020 8:33 AM CDT Resu lts for this procedure are i n the results section . BASIC METABOLIC PANEL (7) Routine 05/19/2020 8:33 AM CDT Results for this procedure are i n the results section . CBC W/PLT COUNT & AUTO Routine 05/19/2020 8:33 AM CDT Results for this DIFFERENTIAL procedure are i n the results section . VANCOMYCIN LEVEL, RANDOM Routine 05/19/2020 8:33 AM CDT Results for this procedure are i n the results section . POCT-GLUCOSE METER Routine 05/19/2020 7:41 AM CDT Results for this procedure are i n the results section . POCT-GLUCOSE METER Routine 05/18/2020 8:50 PM CDT Results for this procedure are i n the results section . HEPATITIS B SURFACE ANTIBODY Routine 05/18/2020 5:37 PM CDT Results for this procedure are i n the results section . HEPATITIS B SURFACE ANTIGEN Routine 05/18/2020 5:37 PM CDT Results for this procedure are i n the results section . POCT-GLUCOSE METER Routine 05/18/2020 4:31 PM CDT Results for this procedure are i n the results section . POCT-GLUCOSE METER Routine 05/18/2020 12:43 PM CDT Results for this procedure are i n the results section . MR LOWER EXTREMITY WITHOUT Routine 05/18/2020 11:54 AM CDT Results for this IV CONTRAST RIGHT procedure are in the results section . HEMODIALYSIS INPATIENT Routine 05/18/2020 10:28 AM CDT BLOOD CULTURE Routine 05/18/2020 8:55 AM CDT Res ults for this procedure are i n the results section . VANCOMYCIN LEVEL, TROUGH STAT 05/18/2020 8:31 AM CDT Results for this procedure are i n the results section . CBC W/PLT COUNT & AUTO Routine 05/18/2020 8:25 AM CDT Results for this DIFFERENTIAL procedure are i n the results section . C-REACTIVE PROTEIN Routine 05/18/2020 8:25 AM CDT Results for this procedure are i n the results section . CBC W/PLT COUNT & AUTO Routine 05/18/2020 8:25 AM CDT Results for this DIFFERENTIAL procedure are i n the results section . MAGNESIUM Routine 05/18/2020 8:25 AM CDT Resu lts for this procedure are i n the results section . HEMOGLOBIN A1C Routine 05/18/2020 8:25 AM CDT Re sults for this procedure are i n the results section . HEPATIC FUNCTION PANEL Routine 05/18/2020 8:25 AM CDT Results for this procedure are i n the results section . BASIC METABOLIC PANEL (7) Routine 05/18/2020 8:25 AM CDT Results for this procedure are i n the results section . SARS-COV2/RT-PCR ([facility] & REF Routine 05/18/2020 7:57 AM CDT Results for this LABS) procedure are i n the results section . POCT-GLUCOSE METER Routine 05/18/2020 7:26 AM CDT Results for this procedure are i n the results section . XR CHEST 1 VIEW Routine 05/18/2020 5:55 AM CDT R esults for this PORTABLE/BEDSIDE procedure a re in the results section . REPORT OF PROCEDURE - 05/18/2020 Result s for this ENDOSCOPY SCAN procedure are in the results section . REPORT OF PROCEDURE - 07/21/2019 8:51 AM SEROLOGY TECHNICIAN ENDOSCOPY SCAN RHYTHM STRIP - SCAN 07/21/2019 8:50 AM SEROLOGY TECHNICIAN XR CHEST 1 VIEW STAT 07/18/2019 11:09 AM SEROLOGY TECHNICIAN R esults for this PORTABLE/BEDSIDE procedure a re in the results section . POCT-GLUCOSE METER Routine 07/18/2019 8:22 AM SEROLOGY TECHNICIAN Results for this procedure are i n the results section . CBC W/PLT COUNT & AUTO Routine 07/18/2019 4:37 AM SEROLOGY TECHNICIAN Results for this DIFFERENTIAL procedure are i n the results section . CBC W/PLT COUNT & AUTO Routine 07/18/2019 4:37 AM SEROLOGY TECHNICIAN Results for this DIFFERENTIAL procedure are i n the results section . PROTHROMBIN TIME/INR Routine 07/18/2019 4:37 AM SEROLOGY TECHNICIAN Results for this procedure are i n the results section . PHOSPHORUS Routine 07/18/2019 4:37 AM SEROLOGY TECHNICIAN Resu lts for this procedure are i n the results section . MAGNESIUM Routine 07/18/2019 4:37 AM SEROLOGY TECHNICIAN Resu lts for this procedure are i n the results section . BASIC METABOLIC PANEL (7) Routine 07/18/2019 4:37 AM SEROLOGY TECHNICIAN Results for this procedure are i n the results section . POCT-GLUCOSE METER Routine 07/17/2019 8:56 PM SEROLOGY TECHNICIAN Results for this procedure are i n the results section . POCT-GLUCOSE METER Routine 07/17/2019 5:07 PM SEROLOGY TECHNICIAN Results for this procedure are i n the results section . POCT-GLUCOSE METER Routine 07/17/2019 12:28 PM SEROLOGY TECHNICIAN Results for this procedure are i n the results section . SCREEN, URINE Routine 07/17/2019 11:36 AM SEROLOGY TECHNICIAN Results for this procedure are i n the results section . POCT-GLUCOSE METER Routine 07/17/2019 7:18 AM SEROLOGY TECHNICIAN Results for this procedure are i n the results section . CBC W/PLT COUNT & AUTO Routine 07/17/2019 5:55 AM SEROLOGY TECHNICIAN Results for this DIFFERENTIAL procedure are i n the results section . CBC W/PLT COUNT & AUTO Routine 07/17/2019 5:55 AM SEROLOGY TECHNICIAN Results for this DIFFERENTIAL procedure are i n the results section . PROTHROMBIN TIME/INR Routine 07/17/2019 5:55 AM SEROLOGY TECHNICIAN Results for this procedure are i n the results section . PHOSPHORUS Routine 07/17/2019 5:55 AM SEROLOGY TECHNICIAN Resu lts for this procedure are i n the results section . MAGNESIUM Routine 07/17/2019 5:55 AM SEROLOGY TECHNICIAN Resu lts for this procedure are i n the results section . BASIC METABOLIC PANEL (7) Routine 07/17/2019 5:55 AM SEROLOGY TECHNICIAN Results for this procedure are i n the results section . MR BRAIN WITHOUT IV CONTRAST Routine 07/17/2019 12:54 AM SEROLOGY TECHNICIAN Results for this procedure are i n the results section . MRA NECK WITHOUT IV CONTRAST Routine 07/17/2019 12:54 AM SEROLOGY TECHNICIAN Results for this procedure are i n the results section . MRA HEAD WITHOUT IV CONTRAST Routine 07/17/2019 12:54 AM SEROLOGY TECHNICIAN Results for this procedure are i n the results section . ECHOCARDIOGRAM REPORT - SCAN 07/16/2019 9:20 PM SEROLOGY TECHNICIAN POCT-GLUCOSE METER Routine 07/16/2019 9:03 PM SEROLOGY TECHNICIAN Results for this procedure are i n the results section . HEMODIALYSIS INPATIENT Routine 07/16/2019 5:23 PM SEROLOGY TECHNICIAN Results for this procedure are i n the results section . POCT-GLUCOSE METER Routine 07/16/2019 5:21 PM SEROLOGY TECHNICIAN Results for this procedure are i n the results section . HEPATITIS B SURFACE ANTIGEN Routine 07/16/2019 1:41 PM SEROLOGY TECHNICIAN Results for this procedure are i n the results section . POCT-GLUCOSE METER Routine 07/16/2019 1:01 PM SEROLOGY TECHNICIAN Results for this procedure are i n the results section . POCT-GLUCOSE METER Routine 07/16/2019 12:03 PM SEROLOGY TECHNICIAN Results for this procedure are i n the results section . 2D ECHO W/ DOPPLER Routine 07/16/2019 11:13 AM SEROLOGY TECHNICIAN Results for this (CW/PW/COLOR) procedure are in the results section . BASIC METABOLIC PANEL (7) Routine 07/16/2019 8:40 AM SEROLOGY TECHNICIAN Results for this procedure are i n the results section . POCT-GLUCOSE METER Routine 07/16/2019 8:05 AM SEROLOGY TECHNICIAN Results for this procedure are i n the results section . ECG 12-LEAD STAT 07/16/2019 7:43 AM SEROLOGY TECHNICIAN Resu lts for this procedure are i n the results section . POCT-GLUCOSE METER Routine 07/16/2019 7:30 AM SEROLOGY TECHNICIAN Results for this procedure are i n the results section . XR CHEST 1 VIEW Routine 07/16/2019 7:04 AM SEROLOGY TECHNICIAN R esults for this PORTABLE/BEDSIDE procedure a re in the results section . POCT-GLUCOSE METER Routine 07/16/2019 5:21 AM SEROLOGY TECHNICIAN Results for this procedure are i n the results section . BASIC METABOLIC PANEL (7) STAT 07/16/2019 5:14 AM SEROLOGY TECHNICIAN Results for this procedure are i n the results section . HEMOGLOBIN A1C Routine 07/16/2019 3:50 AM SEROLOGY TECHNICIAN Re sults for this procedure are i n the results section . CBC W/PLT COUNT & AUTO Routine 07/16/2019 3:49 AM SEROLOGY TECHNICIAN Results for this DIFFERENTIAL procedure are i n the results section . CBC W/PLT COUNT & AUTO Routine 07/16/2019 3:49 AM SEROLOGY TECHNICIAN Results for this DIFFERENTIAL procedure are i n the results section . LIPID PANEL Routine 07/16/2019 3:49 AM SEROLOGY TECHNICIAN Resu lts for this procedure are i n the results section . PHOSPHORUS Routine 07/16/2019 3:49 AM SEROLOGY TECHNICIAN Resu lts for this procedure are i n the results section . MAGNESIUM Routine 07/16/2019 3:49 AM SEROLOGY TECHNICIAN Resu lts for this procedure are i n the results section . HEPATIC FUNCTION PANEL Routine 07/16/2019 3:49 AM SEROLOGY TECHNICIAN Results for this procedure are i n the results section . BASIC METABOLIC PANEL (7) Routine 07/16/2019 3:49 AM SEROLOGY TECHNICIAN Results for this procedure are i n the results section . HIV-1 ANTIGEN WITH HIV-1/2 Routine 07/16/2019 3:48 AM SEROLOGY TECHNICIAN Results for this ANTIBODY procedure are i n the results section . RPR Routine 07/16/2019 3:48 AM SEROLOGY TECHNICIAN Resu lts for this procedure are i n the results section . VITAMIN B12 AND FOLATE Routine 07/16/2019 3:48 AM SEROLOGY TECHNICIAN Results for this procedure are i n the results section . TSH/FREE T4 IF INDICATED Routine 07/16/2019 3:48 AM SEROLOGY TECHNICIAN Results for this procedure are i n the results section . PROTHROMBIN TIME/INR Routine 07/16/2019 3:48 AM SEROLOGY TECHNICIAN Results for this procedure are i n the results section . POCT-GLUCOSE METER Routine 07/16/2019 3:34 AM SEROLOGY TECHNICIAN Results for this procedure are i n the results section . after 07/05/2019 Results POC-Glucose meter (05/24/2020 7:58 AM CDT)Only the most recent of35 results within the time period is included. POC-Glucose Meter 151 (H)Comment: : 70 - [address] [facility] AT [facility] mg/dL [facility] [address] [address]: Jewelry Bench Molder/Technicia n ID = [id number] for Emilee Kuhn Specimen Blood Performing Organization Address City/State/Zipcode Phone Number [facility] [address] [place] [address] CENTER CBC with platelet count + automated diff (05/24/2020 4:39 AM CDT)Only the most recent of10 resultswithin the time period is included. Pathologist Sig nature WBC 6.6 4.0 - 10.0 [facility] RBC 2.85 (L) 4.00 - 5.00 [facility] Hemoglobin 8.8 (L) 12.0 - 15.5 [facility] Hematocrit 28.1 (L) 36.0 - 46.0 % [facility] MCV 98.6 82.0 - 99.0 fL [facility] MCH 30.9 27.0 - 33.0 pg [facility] MCHC 31.3 (L) 32.0 - 36.0 [facility] RDW 14.3 12.0 - 15.0 % [facility] Platelets 267 150 - 430 K/CU [facility] MM [facility] MPV 10.6 6.0 - 11.5 fL [facility] nRBC 1 (H) 0 - 0 /100 WBC [facility] % Neutros 62 % [facility] % Lymphs 21 % [facility] % Monos 10 % [facility] % Eos 5 % [facility] % Baso 1 % [facility] # Neutros 4.08 1.80 - 8.00 [facility] # Lymphs 1.38 (L) 1.48 - 4.50 [facility] # Monos 0.67 0.00 - 1.30 [facility] # Eos 0.35 0.00 - 0.50 [facility] # Baso 0.06 0.00 - 0.20 [facility] Immature 1 (H) 0 - 0 % [facility] e Specimen Blood Performing Organization Address City/State/Zipcode Phone Number [facility] [address] [place], [place] [address] Phosphorus (05/24/2020 4:39 AM CDT)Only the most recent of9 resultswithin the time period is included. Pathologist Sig nature Phosphorus 4.0 2.5 - 4.5 mg/dL [facility] Specimen Blood Narrative Performed At [employer] ID - ADMIN [facility] Performing Organization Address [facility] Phone Number [facility] [address] [place], [place] [address] Basic Metabolic Panel (05/24/2020 4:39 AM CDT)Only the most recent of12 results within the time period is included. Sodium 140 135 - 148 meq/L [facility] Potassium 4.0 3.6 - 5.5 meq/L [facility] Chloride 101 98 - 106 meq/L [facility] CO2 28 20 - 29 meq/L [facility] BUN 13 10 - 26 mg/dL [facility] Creatinine 3.66 (H) 0.50 - 1.20 [facility] mg/dL [facility] Glucose 159 (H) 70 - 110 mg/dL [facility] Calcium 8.4 (L) 8.5 - 10.5 [facility] mg/dL [facility] EGFR 13Comment: ESTIMATED mL/min/1.73 sq [facility] GFR IS NOT m LAB[facility]ORY ACCURATE CREATININE CLEARANCE IN PREDICTING GLOMERULAR FILTRATION RATE. ESTIMATED GFR IS NOT APPLICABLE FOR DIALYSIS PATIENTS. Specimen Blood Narrative Performed At [employer] ID - ADMIN [facility] Performing Organization Address [facility] Phone Number [facility] [address] [place], [place] [address] Vancomycin level, random (05/23/2020 4:02 AM CDT)Only the most recent of3 resultswithin the time period is included. Pathologist Sig nature Vancomycin Rm 19.7 ug/mL [facility] Specimen Blood Narrative Performed At Reference Range: No Normals [facility] Jewelry Bench Molder ID - ADMIN Performing Organization Address City/[facility]/Zipcode Phone Number [facility] [address] [place], [place] [address] TRANSFUSION SERVICE REPORT - SCAN (05/22/2020 6:25 PM CDT) Narrative Performed At This result has an attachment that is no t available. Tissue Exam (05/21/2020 12:36 PM CDT) Case Report Surgical Pathology Report Case: [id number] S MARTHA PEPPER Authorizing Provider: Jada Herron DPM Collected: 05/21/2020 12:36 PM LABORATORY Ordering Location: [facility] Surg 5th Floor Received: 05/21/2020 12:49 PM Pathologist: Ann Meeks MD Specimen: Bone, right 1 st metatarsal head bone biopsy DIAGNOSIS BONE, RIGHT FIRST METATARSAL HEAD, BIOPSY: [place] Electronically - BONE WITH FOCAL FIBROSI S AND CHRONIC INFLAMMATION, CONSISTENT WITH CHRONIC OSTEOMYELITIS LABORATORY signed by Milo Meeksing Pathologist Direct Phone Line: Ann Jung MD on 05/22/2020 at 11:55 AM CPT Code(s) 44069; 66208 [place] [facility] CLINICAL HISTORY Right foot abscess [facility] LABORATORY SPECIMEN SOURCE Right 1st metatarsal [place] head bone biopsy LABORATORY GROSS DESCRIPTION Specimen is received [facility] in formalin LABORATORY designated "bone" and consists of two marin-red bone fragments measuring 1 x 0.3 x 0.3 cm, submitted after decalcification in cassette A1. SQ/pl MICROSCOPIC Performed. [facility] DESCRIPTION LABORATORY Gross assessment [facility] [place] was performed at Hospital, Department LABORATORY of Pathology, [address] [place] [id number], Technical [facility] component was Medical [place], LABORATORY performed at Department of Pathology, [address] [place] [id number], Professional [facility] [place] component was [facility], Department LABORATORY performed at of Pathology, [address] [place] [id number], Specimen Tissue - Entire bone (organ) (body struc ture) Narrative Performed At This result has an attachment that is no t available. Performing Organization Address City/State/Zipcode Phone Number [facility] [address] [place] [phone] Anaerobic culture (05/21/2020 12:18 PM CDT)Only the most recent of2 results within the time period is included. Pathologist Sig nature Result No anaerobes isolated [facility] LABORATO RY Specimen Wound - Metatarsal, Right Performing Organization Address City/State/Zipcode Phone Number [facility] [address] [place], [place] [address] Surgically obtained culture + gram stain (05/21/2020 12:18 PM CDT)Only the most recent of2 resultswithin the time period is included. Result <1+ Trinidad [facility] parapsilosis (A) LABORATORY Gram Stain Result No White blood cells [facility] seen LABORATORY Gram Stain Result No organisms seen [facility] Specimen Wound - Metatarsal, Right Performing Organization Address [facility]/Zipcode Phone Number [facility] [address] [place] [address], [place] [address] ABORH, manual (05/21/2020 4:59 AM CDT) Pathologist Sig nature ABO Grouping O [facility] AL Rh Factor POS [facility] Specimen Blood Performing Organization Address [facility] Phone Number [address] [address] [phone] [facility] Type and screen, automated (05/21/2020 3:52 AM CDT) Pathologist Sig nature ABO/RH AUTOMATED O POSITIVE [facility] Ab Scrn NEGATIVE [facility] Specimen Blood Performing Organization Address [facility] Phone Number [facility] [address] [place] [address] [phone] [facility] Iron, TIBC, % sat. (without ferritin) (05/21/2020 3:52 AM CDT) Pathologist Sig nature Iron 68.0 45.0 - 170.0 [facility] ug/dL TIBC 170 (L) 250 - 550 ug/dL [facility] Iron % Saturation 40 20 - 55 % [facility] Specimen Blood Narrative Performed At [employer] ID - ADMIN [facility] Performing Organization Address [facility] Phone Number [facility] [address] [place] [phone] aPTT (05/21/2020 3:52 AM CDT) Pathologist Sig nature PTT 27.9 23.0 - 35.0 sec [facility] Specimen Blood Narrative Performed At Final Information (Auto Output) [facility] LABORATORY Performing Organization Address [facility] Facility[facility] Phone Number [facility] [address] [place], [place] [phone] Prothrombin time/INR (05/21/2020 3:52 AM CDT)Only the most recent of4 results within the time period is included. Pathologist Sig nature Protime 10.9 9.3 - 12.0 sec [facility] LABORATORY INR 1.00 <=5.90 [facility] LABORATORY Specimen Blood Narrative Performed At RECOMMENDED COUMADIN/WARFARIN INR THERAP Y RANGES [facility] LABORATORY STANDARD DOSE: 2.0 - 3.0 Includes: PROPHYLAXIS for venous thrombosis, systemic embolization; TREATMENT for venou s thrombosis and/or pulmonary embolus. HIGH RISK: Target INR is 2.5-3.5 for patients with mec hanical heart valves. Final Information (Auto Output) Final Information (Auto Output) Performing Organization Address [facility] Phone Number [facility] [address] [place], [place] [phone] hCG, serum, qualitative (05/21/2020 3:52 AM CDT) Pathologist Sig nature Preg Test, Serum Negative [facility] Specimen Blood Performing Organization Address [facility] Number [place] [phone] Magnesium (05/21/2020 3:52 AM CDT)Only the most recent of7 resultswithin the time period is included. Pathologist Sig Piczo Magnesium 2.0 1.5 - 3.0 mg/dL [facility] LABORATORY Specimen Blood Narrative Performed At [employer] ID - ADMIN [facility] Performing Organization Address [facility] Facilitycode Phone Number [facility] [address] [place] [phone] TSH/Free T4 If Indicated (05/20/2020 6:19 AM CDT)Only the most recent of2 resultswithin the time period is included. Pathologist Sig nature TSH 3.130 0.350 - 5.500 uIU/mL [place] [facility] Y Specimen Blood Narrative Performed At [employer] ID - ADMIN [place] Performing Organization Address [facility] FacilityPlympton Phone Number [email or web address] [facility]ATORY [address] [place], [place] [phone] Hepatitis B surface antibody (05/18/2020 5:37 PM CDT) Pathologist Sig renan Hep B S Ab 9.4 (H) <8.0 mIU/mL [facility] CENTER Specimen Blood Narrative Performed At [employer] FABIÁN - JOEL [facility] CENTER Performing Organization Address City/State/Zipcode Phone Number [facility] [address] [place] [address] CENTER Hepatitis B surface antigen (05/18/2020 5:37 PM CDT)Only the most recent of2 resultswithin the time period is included. Pathologist Sig renan HBsAg Screen Nonreactive Nonreactive [employer] LABORATORY Specimen Blood Narrative Performed At [employer] M[employer] ID - ADMIN [employer] LABORATORY Performing Organization Address City/[facility] Facility[facility] Phone Number [email or web address] [facility] LAB[facility]ATORY [address] [place], [place] [phone] MR lower extremity without IV contrast right side (05/18/2020 11:54 AM CDT) Specimen Narrative Performed At FINAL REPORT [employer] MRI of the right forefoot without intrav [...] Guanako Tyler MD Report Verified Date/Time: 05/18/2020 15:44:11 Reading Location: [facility] Radiology Reading Room Procedure Note Interface, External [...] Verified Date/Time: 05/18/2020 1 5:44:11 Reading Location: [facility] Radiology Reading Room Performing Organization Address [facility] Facility[facility] Phone Number GE RIS Blood Culture - Routine (Left Venipuncture) (05/18/2020 8:55 AM CDT) Pathologist Sig nature Result No growth in 5 days [facility]ORATORY Specimen Blood - Entire left upper arm (body stru cture) Performing Organization Address [facility] Phone Number [facility]ORY [address] [place] [phone] Vancomycin level, trough (05/18/2020 8:31 AM CDT) Pathologist Sig nature Vancomycin Tr 15.1 10.0 - 20.0 ug/mL [facility] LABORATORY Specimen Blood Narrative Performed At [employer] M[employer] ID - ADMIN [facility] LABORATORY Performing Organization Address [facility] Number [facility] [address] [place] [phone] C-Reactive Protein (05/18/2020 8:25 AM CDT) Pathologist Sig nature CRP 1.17 (H) 0.00 - 0.50 mg/dL [facility] LABORATORY Specimen Blood Narrative Performed At [employer] M[employer] ID - ADMIN [facility] Performing Organization Address [facility] Number [facility] [address] [place] [phone] Hemoglobin A1c (05/18/2020 8:25 AM CDT)Only the most recent of2 resultswithin the time period is included. Pathologist Sig nature Hemoglobin A1C 9.4 (H) 4.3 - 6.1 % [facility] LABORATORY Specimen Blood Narrative Performed At [employer] M[employer] ID - ADMIN [facility] LAB[facility]ATORY Performing Organization Address [facility] Phone Number [facility] [address] [place] [phone] Hepatic function panel (05/18/2020 8:25 AM CDT)Only the most recent of2 results within the time period is included. Protein, Total 6.9Comment: 6.0 - 8.5 [place] Specimen slightly gm/dL LABORATORY hemolyzed Albumin 3.1 (L)Comment: 3.5 - 5.0 [place] Specimen slightly g/dL LABORATORY hemolyzed Total Bilirubin 0.5Comment: 0.1 - 1.2 [place] Specimen slightly mg/dL LABORATORY hemolyzed Bilirubin, Direct 0.2Comment: 0.0 - 0.4 [place] Specimen slightly mg/dL LABORATORY hemolyzed Alkaline 146 (H) 30 - 115 U/L [place] Phosphatase LABORATORY AST 31Comment: 5 - 40 U/L [place] Specimen slightly LABORATORY hemolyzed ALT 26Comment: 5 - 50 U/L [facility] Specimen slightly LABORATORY hemolyzed Specimen Blood Narrative Performed At [employer] M[employer] ID - ADMIN [facility] Performing Organization Address City/State/Zipcode Phone Number [facility] [address] [place], [place] [address] SARS-CoV2/RT-PCR (Asymptomatic ONLY) (05/18/2020 7:57 AM CDT) SARS-COV2/RT-PCR Negative Not Detected, [facility] Negative, See [facility] external report CENTER for linked test SARS-COV-2 [facility] GEOFFREY [facility] PERFORMING LAB [facility] Specimen Other - Nasopharyngeal wall structure (b lisette structure) Narrative Performed At Negative result for this test determines that [facility] SARS-CoV-2 RNA was not present in [...] the Act. Fact Sheet for Healthcare Providers: https://www.[employer]/sites/default/files/pro duct/documents/Fact_Sheet_HC_Providers_Lyra_SA RS-CoV-2.pdf Fact Sheet for Healthcare Patients: https://www.[employer]/sites/default/files/pro duct/documents/Fact_Sheet_Patients_Lyra_SARS-C oV-2.pdf Performing Laboratory: [place] [address] Performing Organization Address City/State/[place] [address] CENTER XR chest 1 view portable / bedside (05/18/2020 5:55 AM CDT)Only the most recent of3 resultswithin the time period is included. Specimen Narrative Performed At FINAL REPORT RIS CLINICAL HISTORY: shortness of breath TECHNIQUE: 1 view of the chest. COMPARISON: 07/18/2019 IMPRESSION: There are new, mildly prominent intersti tial opacities bilaterally. There is no lobar consolidation or signi ficant pleural fluid. There is no cardiomegaly. Surgical clips are s een in the medial left upper arm. Signed: Marychuy Bueno MD Report Verified Date/Time: 05/18/2020 08:11:49 Reading Location: [facility] Reading Room Procedure Note Interface, External [...] Verified Date/Time: 05/18/2020 0 8:11:49 [facility] Performing Organization Address City/State/Zipcode Phone Number GE RIS EKG-SCANNED (05/18/2020)Only the most recent of2 resultswithin the time period is included. Narrative Performed At This result has an attachment that is no t available. Ordered by an unspecified provider. RHYTHM STRIP - SCAN (07/21/2019 8:50 AM SEROLOGY TECHNICIAN) Narrative Performed At This result has an attachment that is no t available. Screen, urine (07/17/2019 11:36 AM SEROLOGY TECHNICIAN) Pathologist Sig nature Preg Test, Ur Negative [facility] CENTER Specimen Urine Performing Organization Address City/[facility]/[place] [address] CENTER MR brain without IV contrast (07/17/2019 12:54 AM SEROLOGY TECHNICIAN) Specimen Narrative Performed At FINAL REPORT [facility] [employer] RIS MR, BRAIN, WITHOUT CONTRAST, MR, MRA, [...] Yg Ortiz MD Report Verified Date/Time: 07/17/2019 03:28:33 Procedure Note Interface, External Ris In - 07/17/2019 4:57 AM SEROLOGY TECHNICIAN FINAL REPORT MR, BRAIN, WITHOUT CONTRAST, MR, [...] 3:28:33 Performing Organization Address City/State/Zipcode Phone Number [employer] MR MRA neck without contrast (07/17/2019 12:54 AM SEROLOGY TECHNICIAN) Specimen Narrative Performed At FINAL REPORT [employer] MR, BRAIN, WITHOUT CONTRAST, MR, MRA, [...] Yg Ortiz MD Report Verified Date/Time: 07/17/2019 03:28:33 Procedure Note Interface, External Ris In - 07/17/2019 4:57 AM SEROLOGY TECHNICIAN FINAL REPORT MR, BRAIN, WITHOUT CONTRAST, MR, [...] 3:28:33 Performing Organization Address City/State/Zipcode Phone Number [employer] MR MRA head without contrast (07/17/2019 12:54 AM SEROLOGY TECHNICIAN) Specimen Narrative Performed At FINAL REPORT [employer] MR, BRAIN, WITHOUT CONTRAST, MR, MRA, [...] Yg Ortiz MD Report Verified Date/Time: 07/17/2019 03:28:33 Procedure Note Interface, External Ris In - 07/17/2019 4:57 AM SEROLOGY TECHNICIAN FINAL REPORT MR, BRAIN, WITHOUT CONTRAST, MR, [...] 3:28:33 Performing Organization Address City/State/Zipcode Phone Number [employer] ECHOCARDIOGRAM REPORT - SCAN (07/16/2019 9:20 PM SEROLOGY TECHNICIAN) Narrative Performed At This result has an attachment that is no t available. HEMODIALYSIS INPATIENT (07/16/2019 5:23 PM SEROLOGY TECHNICIAN) Narrative Performed At Jeff Mcduffie RN 2018 5:24 PM Verified HD treatment consent signed at [...] 07/16/2019 2D Echo W/Doppler(CW/PW/Color) (07/16/2019 11:13 AM SEROLOGY TECHNICIAN) Pathologist Sig nature Ejection Fraction [facility] MKCK ESSON [facility]PA Specimen Narrative Performed At Transthoracic Echocardiography Report (T TE) [facility] Patient Name ARCHANA WOO Date of Study 07/16/2019 Gender Female Visit Number [id number] Race Unknown Room Number 7605 Number Date of 1975 Referring Arvin Ann Physician Age 43 year(s) Game Artist Daja Arthur, [facility] [employer] Music Teacher Yanna Mcdonald Interpreting MD Oscar Silver Physician [...] (>60%) . Intracavitary gradient is 20mmHg at rest . Grade 1 diastolic dysfunction (impaired relaxati on and low-normal LA pressure). Left Atrium LA size is normal (16-34 ml/m2) . Right Ventricle RV chamber [...] RA pressure. (RA pressure indeterminate on this exam ) Pulmonic Valve PV is not well visualized; function appears normal by Doppler visualized. Aorta Aortic root size (SInus of Valsalva diameter) is norm al . Pericardium No significant pericardial effusion is [...] LVOT Diameter: 2 cm Right Ventricle TAPSE: 1.5 7 cm Aorta Ao Root S of Laura.: [...] External Ris In - 07/16/2019 2:11 PM SEROLOGY TECHNICIAN Transthoracic Echocardiography Report (TTE) Demographics Patient Name ARCHANA WOO Date of St udy 07/16/2019 Gender Female Visit Number [id number] Race Unknown [place] [address] Number Date of 1975 Referring [facility] Phys[facility] Age 43 year(s) Sonographe r Daja Arthur, [facility] [employer] Yanna Yanez MD [place] Physician Procedure Type of [...] TR Gradient: 21.42 mmHg Performing Organization Address [facility] Phone Number [facility] MKCKESSON [facility] ECG 12 lead (07/16/2019 7:43 AM SEROLOGY TECHNICIAN) Specimen Narrative Performed At Ventricular Rate 87 BPM [employer] Atrial Rate 87 BPM P-R Interval 136 ms QRS Duration 72 ms Q-T Interval 380 ms QTC Calculation(Bazett) 457 ms P Gibson 68 degrees R Gibson 17 degrees T Gibson 65 degrees Normal sinus rhythm Normal ECG When compared with ECG of 19-MAR-2017 15 :16, QT has shortened Confirmed by MD GUTIÉRREZ YOCHAI ([id number]) on 07/18/2019 7:35:43 AM Procedure Note Interface, External Ris In - 07/18/2019 7:35 AM SEROLOGY TECHNICIAN Ventricular Rate 87 BPM Atrial Rate 87 BPM P-R Interval 136 ms QRS Duration 72 ms Q-T Interval 380 ms QTC Calculation(Bazett) 457 ms P Gibson 68 degrees R Gibson 17 degrees T Gibson 65 degrees Normal sinus rhythm Normal ECG When compared with ECG of 19-MAR-2017 15 :16, QT has shortened Confirmed by MD GUTIÉRREZ YOCHAI ([id number]) on 07/18/2019 7:35:43 AM Performing Organization Address [facility] Phone Number [employer] Lipid panel (07/16/2019 3:49 AM SEROLOGY TECHNICIAN) Pathologist Sig nature Triglycerides 100 mg/dL [facility] Cholesterol 177 mg/dL [facility] HDL 48 mg/dL [facility] LDL Calculated 109 mg/dL [facility] Specimen Blood Narrative Performed At Triglyceride Reference Range: [facility] Low Risk <150 Borderline 150-199 High Risk 200-499 Very High Risk >=500 Cholesterol Reference Range: Low Risk <200 Borderline 200-239 High Risk >240 HDL Cholesterol Reference Range: Low Risk >=60 High Risk <40 LDL Cholesterol Reference Range: Optimal <100 Near Optimal 100-129 Borderline 130-159 High 160-189 Very High >=190 Performing Organization Address City/State/Zipcode Phone Number [address] [phone] CENTER Vitamin B12 and Folate (07/16/2019 3:48 AM SEROLOGY TECHNICIAN) Pathologist Sig nature Vitamin B12 525 213 - 816 pg/mL [facility] Folate 6.5 (L) >=7.0 ng/mL [facility] Specimen Blood Performing Organization Address City/[facility]/Zipcode Phone Number [address] [phone] CENTER HIV-1 Antigen with HIV-1/2 Antibody (07/16/2019 3:48 AM SEROLOGY TECHNICIAN) Pathologist Sig nature HIV-1 Antigen with Nonreactive Nonreactive [facility] HIV 1&2 Antibody [facility] Specimen Blood Performing Organization Address City/[facility] Phone Number [address] [phone] CENTER RPR (07/16/2019 3:48 AM SEROLOGY TECHNICIAN) Pathologist Sig nature RPR Nonreactive Nonreactive [facility] Specimen Blood Performing Organization Address City/[facility]/Zipcode Phone Number [address] [address] CENTER after 07/05/2019 Insurance Payer Benefit Plan Subscriber ID Effective Phone Address Typ e / Group Dates [place] [id number] 2016-[facility] - MEDICARE HMO MEDICARE D CARE MEDICAID - [facility] [id number] 2013-[address] dicaid MEDICAID MGD STAR PLAN nt Contrac darian CARE Advance Directives For more information, please contact: [phone] Code Status Date Activated Date Inactivated Comments Full Code 05/18/2020 5:13 AM 05/24/2020 1:21 PM This code status was determined by: Patient Full Code 07/16/2019 12:46 AM 07/18/2019 4:56 PM This code status was determined by: Patient Full Code 03/14/2017 8:30 PM 03/20/2017 12:11 PM This code status was determined by: Patient
--- OUTSIDE RECORDS SUMMARY | 2020-07-05 12:46 | XMS REPORT | Continuity of Care Document ---
:1975 Author Organization [facility] t Address [address] [place] [address] Dr. Garza. [address] [place] [address] Care Team Providers Name Role Phone PETER Attending Clinician Unavailable Peter REYNOSO Attending Clinician Zhao Giles MD Attending Clinician Vera REYNOSO Attending Clinician Renny Ayala MD Attending Clinician Joann Alfonso DPM Attending Clinician Violeta REYNOSO Attending Clinician Seth REYNOSO Attending Clinician Graham Schultz MD Attending Clinician Raphael REYNOSO Attending Clinician VIOLETA Attending Clinician Unavailable LYN EDWARDS Attending Clinician Unavailable PETER Admitting Clinician Unavailable Graham SCHULTZ Admitting Clinician Unavailable LYN EDWARDS Admitting Clinician Unavailable Payers Payer Name Policy Type Policy Effective Date Expiration Date Sour ce Number [facility] [id number] 2016 [facility] - MEDICARE MGD 00:00:00 - [facility] MEDICARE [id number] 017-Present MEDICAID - [id number] 2013 [facility] MEDICAID MGD 00:00:00 - Medical [facility] [id number]/2013-PresentMedic aid Contracted Problems Condition Condition Condition Status Onset Resolution [...] numbness numbness 09-15 [facility] ESRD on ESRD on Disease Active 2018-[address] [facility] [facility] dialysis dialysis 09-15kes - 00:00: Medical [place] Proteinuri Proteinuri Disease Active [facility] a a 03-20 [facility] - 00:00: Medical Center Gastropare Gastropare Disease Active [facility] sis sis 03-19 [facility] - 00:00: Medical Center DELMA (acute DELMA (acute Disease Active [facility] kidney kidney 03-16 [facility] - injury) injury) 00:00: Medical 00 Center [...] dism dism 03-15 [facility] - [facility] Diabetes Diabetes Disease Active [facility] mellitus mellitus 03-15 [facility] - 00:[facility]: Medical 00 Center Depression Depression Disease Active [facility] 03[facility]15 [facility] - 00:[facility]: Medical 00 Center Anxiety Anxiety Disease Active [facility] 03[facility]15 [facility] Medical Center GERD GERD Disease Active [facility] (gastroeso (gastroeso 03-15 Carolann kes - phageal phageal 00:00: Medical reflux reflux 00 Center disease) disease) COPD COPD Disease Active [facility] (chronic (chronic 03-15 [facility] - obstructiv obstructiv 00:00: Me dical e e 00 Center pulmonary pulmonary disease) disease) Chronic Chronic Disease Active [facility] renal renal 03-15 [facility] - disease disease 00:00: Medical 00 [place] Hyperlipid Hyperlipid Disease Active [facility] emia emia 03-15 [facility] - 00:00: Medical 00 [place] History of History of Disease Active [facility] thyroid thyroid 03-15 [facility] - cancer cancer 00:00: Medical [address] [place] [address] Blind Blind Disease Active [facility] 03-15 [facility] - 00:00: Medical 00 [place] Tobacco Tobacco Disease Active [facility] abuse abuse 03-15 [facility] - 00:00: Medical 00 [place] Diabetic Diabetic Disease Active [facility] retinopath retinopath 03-15 [facility]ann kes - y y 00:00: Medical [address] [place] [address] Diabetic Diabetic Disease Active [facility] nephropath nephropath 03-15 [facility]ann kes - y y 00:00: Medical [address] [place] [address] Allergies, Adverse Reactions, Alerts Allergy Allergy Status Severity Reaction(s) Onset Inactive Treating Comm ents Source Name Type Date Date Clinician No Known DA Active [facility] 08[facility]22 [facility] 00:00: [address] Family History Family Member Diagnosis Comments Start Date Stop Date Source Natural daughter No Known Problem CH [facility] Natural father Hypertension [facility] Natural mother Diabetes [facility] Natural mother Hypertension [facility] Natural mother Kidney disease [facility] Social History Social Habit Start Date Stop Date Quantity Comments Source History SDOH [facility] - Alcohol Std Drinks Medica Center History SDOH [facility] - Alcohol Binge Medical Fidenc[address] ter Sex Assigned At [facility] Cigarettes smoked 2020-05-24 2020-05-24 [facility] tanvir - current (pack per 00:00:00 00:00:00 [facility] day) - Reported Cigarette 2020-05-24 2020-05-24 [facility] - pack-years 00:00:00 00:00:[address] [facility] Tobacco use and 2020-05-24 2020-05-24 Never used [facility] - exposure 00:00:00 00:00:[address] [facility] Alcohol intake 2020-05-24 2020-05-24 Current [facility] - 00:00:00 00:00:00 non-drinker of Medical Ce nter alcohol (finding) History SDOH 2020-05-18 2020-05-[address] [facility] - Alcohol Frequency 00:00:00 00:00:00 Medical Center History of tobacco 2020-05-18 Current smoker [facility] use [facility] Center Smoking Status Start Date Stop Date Source Former smoker 2020-05-24 00:00:00 2020-05-24 00:00:[address] [facility] - [facility] Center Medications Ordered Filled Start Stop Current Ordering Indication Dosage Frequency Signature Comments Components Source Medication Medication Date Date Medication? Clinician (SIG) Name Name thomas 2019-08- Yes 800mg Take [address] (RENVELA) 1-10 11-10 tablet [facility] - 800 mg 00:00: 23:59 (800 mg Medical tablet 00 :00 total) by Center mouth 3 (three) times daily with meals. PARoxetine 2019-08 Yes 40mg QD Take [address] (PAXIL) 40 0-08 by mouth [facility] - MG tablet 11:21: every Medical 49 morning. Center HYDROcodone 2019-08 Yes 1{tbl} Take [address] -acetaminop 0-08 tablet by Elsie es - hen (NORCO 11:21: mouth Medica l 7.5-325) 49 every 6 Center 7.5-325 mg (six) per tablet hours as needed for Pain. ALPRAZolam 2019-08 Yes 1mg Take [address] (XANAX) 1 0-08 by mouth [facility] - MG tablet 11:21: every Medical 49 night as Center needed for Anxiety. busPIRone 2019-08 Yes 10mg Q.[id number] Take [address] (BUSPAR) 10 0-08 [id number] by mouth 3 [facility] - MG tablet 11:21: 3D (three) Medic al 49 times Center daily. esomeprazol 2019-08 Yes 40mg QD Take [address] e (NEXIUM) 0-08 by mouth [facility] - 40 MG 11:21: daily. Medical capsule 49 Center fenofibrate 2019-08 Yes 48mg QD Take [address] (TRICOR) 48 0-08 by mouth Luke s - MG tablet 11:21: daily. Medica l 49 Center levothyroxi 2019-08 Yes 150ug Take [address] ne 0-08 mcg by Tyrese - (SYNTHROID, 11:21: mouth Medic al LEVOTHROID) 49 Every Center 150 MCG morning on tablet an empty stomach. magnesium 2019-08 Yes 400mg QD Take [address] oxide 0-08 mg by Tyrese - (MAG-OX) 11:21: mouth Medical 400 mg 49 daily. Center tablet prednisoLON 2019-08 Yes 1[drp] [address] E acetate 0-08 needed. Tyrese - (PRED 11:21: Medical FORTE) 1 % 49 Center ophthalmic suspension multivitami 2019-08 Yes 1{tbl} QD Take [address] n 0-08 tablet by Tyrese - (MULTIVITAM 11:21: mouth Medic al IN) per 49 daily. Center tablet metoclopram 2019-08 Yes 10mg Take [address] avni HCl 0-08 by mouth 4 Lutanvir - (REGLAN) 10 11:21: (four) Medi ghassan MG tablet 49 times Center daily as needed for Nausea. erythromyci 2019-08 Yes 250mg Take [address] n base 0-08 mg by Tyrese - (E-MYCIN) 11:21: mouth Medical 250 MG 49 every 6 Center tablet (six) hours as needed. sevelamer 2019-08 2020- No 800mg Take [address] (RENVELA) 0-08 11-07 tablet Tyrese - 800 mg 00:00: 23:59 (800 mg Medical tablet 00 :00 total) by Center mouth 3 (three) times daily with meals for 30 days. amoxicillin 2019-08 2020- No 1{tbl} Q.5D Take [address] -clavulanat 0-08 10-15 tablet by Carolann ramey - e 00:00: 23:59 mouth 2 Medical (AUGMENTIN) 00 :00 (two) Center 875-125 mg times per tablet daily for 7 days. amLODIPine 2018-08 2020- No 5mg QD Take [address] (NORVASC) 5 09-19-02 tablet (5 Carolann kes - MG tablet 00:00: 23:59 mg total) Me dical 00 :00 by mouth Center daily for 30 days. aspirin 81 2018-08 2020- No 81mg QD Take [address] MG chewable 2-10 15-02 tablet (81 L ukes - tablet 00:00: 23:59 mg total) Medic al 00 :00 by mouth Center daily for 30 days. atorvastati 2018-08 2020- No 40mg QD Take [address] n (LIPITOR) 2-02 08-17 tablet (40 L ukes - 40 MG 00:00: 23:59 mg total) Medica l tablet 00 :00 by mouth Center nightly for 30 days. cyclobenzap 2018-08 Yes 2.5mg Q.[id number] Take 2.[address] rine 0-16 [id number] mg by [facility] - (FLEXERIL) 00:00: 3D [...] nter injection morning Use as directed . Vital Signs Vital Name Observation Time Observation Value Comments Source Systolic blood 2020-05-24 07:48:00 133 mm[Hg] [facility] Diastolic blood 2020-05-24 07:48:00 63 mm[Hg] [facility] Heart rate 2020-05-24 07:48:00 89 /min [facility] Body temperature 2020-05-24 07:48:00 36.78 Mallory [facility] Respiratory rate 2020-05-24 07:48:00 18 /min [facility] Oxygen saturation in 2020-05-24 07:48:00 98 /min [facility] Arterial blood by Medical Ce nter Pulse oximetry Body height 2020-05-18 05:32:00 162.6 cm [facility] Body weight 2020-05-18 05:32:00 61.236 kg [facility] BMI 2020-05-18 05:32:00 23.16 kg/m2 [facility] Procedures Procedure Date / Time Performing Clinician Source Performed POCT-GLUCOSE METER 2020-05-24 07:58:00 [facility] BASIC METABOLIC PANEL (7) 2020-05-24 04:39:00 Nikolas Giles [facility] PHOSPHORUS 2020-05-24 04:39:00 Nikolas Giles [facility] CBC W/PLT COUNT & AUTO 2020-05-24 04:39:00 Nikolas Giles [facility] POCT-GLUCOSE METER 2020-05-23 20:35:00 [facility] HEMODIALYSIS INPATIENT 2020-05-23 11:33:43 Libby Gao [facility] POCT-GLUCOSE METER 2020-05-23 11:26:00 [facility] POCT-GLUCOSE METER 2020-05-23 07:19:00 Nikolas Giles [facility] VANCOMYCIN LEVEL, RANDOM 2020-05-23 04:02:00 Mikel Tellez [facility] BASIC METABOLIC PANEL (7) 2020-05-23 04:02:00 Nikolas Giles [facility] PHOSPHORUS 2020-05-23 04:02:00 Nikolas Giles [facility] CBC W/PLT COUNT & AUTO 2020-05-23 04:02:00 Nikolas Giles [facility] POCT-GLUCOSE METER 2020-05-22 20:40:00 Nikolas Giles [facility] TRANSFUSION SERVICE REPORT 2020-05-22 18:25:34 Provider, Francisco [facility] - SCAN [facility] POCT-GLUCOSE METER 2020-05-22 11:30:00 Nikolas Giles [facility] POCT-GLUCOSE METER 2020-05-22 07:27:00 Nikolas Giles [facility] BASIC METABOLIC PANEL (7) 2020-05-22 05:00:00 Nikolas Giles [facility] PHOSPHORUS 2020-05-22 05:00:00 Nikolas Giles [facility] CBC W/PLT COUNT & AUTO 2020-05-22 05:00:00 Nikolas Giles [facility] POCT-GLUCOSE METER 2020-05-21 21:36:00 Nikolas Giles [facility] TISSUE EXAM 2020-05-21 12:36:00 Jada Alfonso [facility] POCT-GLUCOSE METER 2020-05-21 12:28:00 Nikolas Giles [facility] ANAEROBIC CULTURE 2020-05-21 12:18:47 Jada Alfonso [facility] SURGICALLY OBTAINED 2020-05-21 12:18:47 Jada Alfonso [facility] - CULTURE + GRAM STAIN Medical [facility] ter ANAEROBIC CULTURE 2020-05-21 12:16:02 Jada Alfonso [facility] SURGICALLY OBTAINED 2020-05-21 12:16:[address] [facility] I [facility] - CULTURE + GRAM STAIN Medical [facility] ter DEBRIDEMENT/I&D,WOUND 2020-05-21 11:30:00 Jada Alfonso [facility] ECG 12-LEAD 2020-05-21 09:24:05 Unknown, Hl7 Doctor [facility] POCT-GLUCOSE METER 2020-05-21 07:44:00 Shinazia, Nikolas Churchill [facility] ABORH, MANUAL 2020-05-21 04:59:[address] [facility] BASIC METABOLIC PANEL (7) 2020-05-21 03:52:00 [facility] MAGNESIUM 2020-05-21 03:52:00 [facility], Nikolas Churchill [facility] PHOSPHORUS 2020-05-21 03:52:00 [facility], Nikolas Churchill [facility] VANCOMYCIN LEVEL, RANDOM 2020-05-21 03:52:00 Salvatore Wong [facility] IRON, TIBC, % SAT. 2020-05-21 03:52:[address] [facility] (WITHOUT FERRITIN) [facility] r PROTHROMBIN TIME/INR 2020-05-21 03:52:00 [facility], Nikolas Churchill [facility] APTT 2020-05-21 03:52:00 [facility], Nikolas Churchill [facility] HCG, SERUM, QUALITATIVE 2020-05-21 03:52:00 Melchor Ayala [facility] TYPE AND SCREEN, AUTOMATED 2020-05-21 03:52:00 [facility], Nikolas Churchill [facility] CBC W/PLT COUNT & AUTO 2020-05-21 03:52:00 [facility], Nikolas Churchill [facility] POCT-GLUCOSE METER 2020-05-20 21:08:00 [facility] POCT-GLUCOSE METER 2020-05-20 15:51:00 [facility], Nikolas Churchill [facility] POCT-GLUCOSE METER 2020-05-20 11:20:00 [facility] POCT-GLUCOSE METER 2020-05-20 07:21:00 [facility] BASIC METABOLIC PANEL (7) 2020-05-20 06:19:00 Nikolas Giles [facility] MAGNESIUM 2020-05-20 06:19:00 Nikolas Giles [facility] PHOSPHORUS 2020-05-20 06:19:00 Nikolas Giles [facility] TSH/FREE T4 IF INDICATED 2020-05-20 06:19:00 Nikolas Giles [facility] CBC W/PLT COUNT & AUTO 2020-05-20 05:07:00 [facility] POCT-GLUCOSE METER 2020-05-19 22:01:00 [facility] POCT-GLUCOSE METER 2020-05-19 16:24:00 [facility] POCT-GLUCOSE METER 2020-05-19 11:20:00 Nikolas Giles [facility] VANCOMYCIN LEVEL, RANDOM 2020-05-19 08:33:00 Jayleen Santana [facility] BASIC METABOLIC PANEL (7) 2020-05-19 08:33:00 Nikolas Giles [facility] MAGNESIUM 2020-05-19 08:33:00 [facility] PHOSPHORUS 2020-05-19 08:33:00 Nikolas Giles [facility] CBC W/PLT COUNT & AUTO 2020-05-19 08:33:00 Nikolas Giles [facility] POCT-GLUCOSE METER 2020-05-19 07:41:00 [facility] POCT-GLUCOSE METER 2020-05-18 20:50:00 Nikolas Giles [facility] HEPATITIS B SURFACE 2020-05-18 17:37:00 [facility]TIGEN [facility] HEPATITIS B SURFACE 2020-05-18 17:37:00 Travis Hutchins [facility] ANTIBODY [facility] POCT-GLUCOSE METER 2020-05-18 16:31:00 Nikolas Giles [facility] POCT-GLUCOSE METER 2020-05-18 12:43:00 Nikolas Giles [facility] MR LOWER EXTREMITY WITHOUT 2020-05-18 11:54:[address] [facility] IV CONTRAST RIGHT [facility] HEMODIALYSIS INPATIENT 2020-05-18 10:28:35 Travis Hutchins [facility] BLOOD CULTURE 2020-05-18 08:55:00 [facility] VANCOMYCIN LEVEL, TROUGH 2020-05-18 08:31:00 Jayleen Santana [facility] BASIC METABOLIC PANEL (7) 2020-05-18 08:25:00 [facility] HEPATIC FUNCTION PANEL 2020-05-18 08:25:00 [facility] HEMOGLOBIN A1C 2020-05-18 08:25:00 [facility] MAGNESIUM 2020-05-18 08:25:00 [facility] C-REACTIVE PROTEIN 2020-05-18 08:25:00 [facility] CBC W/PLT COUNT & AUTO 2020-05-18 08:25:00 [facility] SARS-COV2/RT-PCR ([facility] & 2020-05-18 07:57:00 Peter [facility] - REF LABS) Medical Center POCT-GLUCOSE METER 2020-05-18 07:26:00 Nikolas Giles [facility] XR CHEST 1 VIEW 2020-05-18 05:55:00 Peter [facility] PORTABLE/BEDSIDE Medical Center REPORT OF PROCEDURE - 2020-05-18 00:00:00 Provider, Default [facility] ENDOSCOPY SCAN Scanning [facility] REPORT OF PROCEDURE - 2019-07-21 08:51:04 Provider, Default [facility] ENDOSCOPY SCAN Scanning [facility] RHYTHM STRIP - SCAN 2019-07-21 08:50:54 Provider, Default [facility] XR CHEST 1 VIEW 2019-07-18 11:09:[address] [facility] PORTABLE/BEDSIDE Medical [place] POCT-GLUCOSE METER 2019-07-18 08:22:00 Raphael [facility] BASIC METABOLIC PANEL (7) 2019-07-18 04:37:00 [facility] MAGNESIUM 2019-07-18 04:37:00 [facility] PHOSPHORUS 2019-07-18 04:37:00 [facility] PROTHROMBIN TIME/INR 2019-07-18 04:37:00 [facility] CBC W/PLT COUNT & AUTO 2019-07-18 04:37:00 [facility] POCT-GLUCOSE METER 2019-07-17 20:56:00 Shania Schultz [facility] POCT-GLUCOSE METER 2019-07-17 17:07:00 Shania Schultz [facility] POCT-GLUCOSE METER 2019-07-17 12:28:00 Shania Schultz [facility] SCREEN, URINE 2019-07-17 11:36:00 Ann Cook [facility] POCT-GLUCOSE METER 2019-07-17 07:18:00 Shania Schultz [facility] BASIC METABOLIC PANEL (7) 2019-07-17 05:55:00 [facility] MAGNESIUM 2019-07-17 05:55:00 [facility] PHOSPHORUS 2019-07-17 05:55:00 [facility] PROTHROMBIN TIME/INR 2019-07-17 05:55:00 [facility] CBC W/PLT COUNT & AUTO 2019-07-17 05:55:00 [facility] MRA HEAD WITHOUT IV 2019-07-17 00:54:00 [facility] MRA NECK WITHOUT IV 2019-07-17 00:54:00 [facility] MR BRAIN WITHOUT IV 2019-07-17 00:54:00 [facility] ECHOCARDIOGRAM REPORT - 2019-07-16 21:20:18 Provider, Default [facility] POCT-GLUCOSE METER 2019-07-16 21:03:00 Shania Schultz [facility] HEMODIALYSIS INPATIENT 2019-07-16 17:23:31 Ashwin Cole [facility] POCT-GLUCOSE METER 2019-07-16 17:21:00 Shania Schultz [facility] HEPATITIS B SURFACE 2019-07-16 13:41:00 Ashwin Cole [facility] POCT-GLUCOSE METER 2019-07-16 13:01:00 Shania Schultz [facility] POCT-GLUCOSE METER 2019-07-16 12:03:00 Shania Schultz [facility] 2D ECHO W/ DOPPLER 2019-07-16 11:13:59 [facility] (CW/PW/COLOR) [facility] BASIC METABOLIC PANEL (7) 2019-07-16 08:40:00 [facility] POCT-GLUCOSE METER 2019-07-16 08:05:00 Shania Schultz [facility] ECG 12-LEAD 2019-07-16 07:43:10 [facility] POCT-GLUCOSE METER 2019-07-16 07:30:00 Shania Schultz [facility] XR CHEST 1 VIEW 2019-07-16 07:04:00 [facility] PORTABLE/BEDSIDE Medical Center POCT-GLUCOSE METER 2019-07-16 05:21:00 [facility] BASIC METABOLIC PANEL (7) 2019-07-16 05:14:00 [facility] HEMOGLOBIN A1C 2019-07-16 03:50:00 [facility] BASIC METABOLIC PANEL (7) 2019-07-16 03:49:00 [facility] HEPATIC FUNCTION PANEL 2019-07-16 03:49:00 [facility] MAGNESIUM 2019-07-16 03:49:00 [facility] PHOSPHORUS 2019-07-16 03:49:00 [facility] LIPID PANEL 2019-07-16 03:49:00 [facility] CBC W/PLT COUNT & AUTO 2019-07-16 03:49:00 [facility] PROTHROMBIN TIME/INR 2019-07-16 03:48:00 [facility] TSH/FREE T4 IF INDICATED 2019-07-16 03:48:00 [facility] VITAMIN B12 AND FOLATE 2019-07-16 03:48:00 [facility] RPR 2019-07-16 03:48:00 [facility] HIV-1 ANTIGEN WITH HIV-1/2 2019-07-16 03:48:00 [facility] POCT-GLUCOSE METER 2019-07-16 03:34:00 [facility] [id number] 2019-05-18 00:00:00 E[facility] [id number] 2019-05-18 00:00:00 ENC[facility] [id number] 2019-05-18 00:00:00 ENC[facility] [id number] 2019-05-18 00:00:00 ENCPL Plan of Care Planned Activity Planned Date Details Comments Source Future Scheduled 2022-07-[address] [facility] - Test 00:00[facility]00 (procedure) [code = Medical Center 85424675] Future Scheduled 2021-05-[address] [facility] - Test 00:00:00 examination Medical Center (regime/therapy) [code = 384181090] Future Scheduled 2020-08-[address] [facility] - Test 00:00:00 measurement [facility] (procedure) [code = 61535688] Future Scheduled 2020-04-17 INFLUENZA VACCINE (#1) [facility] Test 00:00:00 [code = INFLUENZA Medical Ce nter VACCINE (#1)] Future Scheduled 2019-11-[address] [facility] - Test 00:00:00 0-64 YRS (2 of 3 - Medical C enter PCV13) [code = PNEUMOCOCCAL VACCINE 0-64 YRS (2 of 3 - PCV13)] Future Scheduled 2018-03-17 Urine screening for [facility] - Test 00:00:00 protein (procedure) [facility] [code = 113106472] Future Scheduled 2017-08-[address] [facility] - Test 00:00:00 WELLNESS (YEAR 2 or Medical Center FIRST YEAR if no IPPE) [code = MEDICARE ANNUAL WELLNESS (YEAR 2 or FIRST YEAR if no IPPE)] Future Scheduled 1995-10-[address] [facility] - Test 00:00:00 malignant neoplasm of Medica l Center cervix (procedure) [code = 797895938] Future Scheduled 1984 DIABETIC EYE EXAM [facility] - Test 00:00:00 [code = DIABETIC EYE Medical Center EXAM] Encounters Start End Encounter Admission Attending Care Care Encounter Source Date/Time Date/Time Type Type Clinicians Facility Department ID 2019-04-12 Inpatient [facility] MED [id number] [facility] W 13:57:46 Results Test Description Test Time Test Comments Results Result Comments Source SURGICALLY OBTAINED CULTURE + GRAM STAIN 2020-05-25 11:27:00 Test Item Value Reference Range Interpretation Comme nts CULTURE (BEAKER) (test A From Broth Only Same organism code = 1095) has been isolat ed from culture(s) of t he same body site and collec tion date. Repeat identifi cation performed only after consultation wi the clinical microbiology la boratory.Refer to previous cul ture ofCandida parapsilosis GRAM STAIN RESULT No White blood cells seen (BEAKER) (test code = 1123) GRAM STAIN RESULT No organisms seen (BEAKER) (test code = 115730) Surgically obtained culture + gram [id number] 11:24:00 Test Item Value Reference Range Interpretation Comments Result (test code = <1+ Trinidad A 6463-4) parapsilosis Gram Stain Result (test No organisms seen code = 1123) Lab Interpretation (test Abnormal code = 78277-3) [facility] GRAM [id number] 11:24:00 Test Item Value Reference Range Interpretation Comments CULTURE (BEAKER) A <1+ Trinidad (test code = parapsilosis 1095) GRAM STAIN No White blood RESULT (BEAKER) cells seen (test code = 1123) GRAM STAIN No organisms seen RESULT (BEAKER) (test code = 14887) Anaerobic [id number] 15:40:00 Test Item Value Reference Range Interpretation Comments Result (test code = No anaerobes isolated 6463-4) [facility] [id number] 15:40:00 Test Item Value Reference Range Interpretation Comments CULTURE (BEAKER) (test No anaerobes isolated code = 1095) ANAEROBIC [id number] 15:40:00 Test Item Value Reference Range Interpretation Comments CULTURE (BEAKER) (test No anaerobes isolated code = 1095) POC-Glucose [id number] 08:09:00 Test Item Value Reference Range Interpretation Comments POC-Glucose Meter (test 151 mg/dL 70-110 H : TE STED AT [facility] code = 1538) [address] [facility], [facility] [address]: Bullet Maker/Techni tammy ID = [id number] for Emilee Kuhn Lab Interpretation (test Abnormal code = 13880-5) [facility] [id number] 08:09:00 Test Item Value Reference Range Interpretation Comments POC-GLUCOSE METER 151 mg/dL 70-110 H : TESTED A T SLSL 1317 (BEAKER) (test code [address] [facility], = 1538) [facility] 77 478: Bullet Maker/Techni tammy ID = [id number] for Emilee Kovacs Basic Metabolic [id number] 06:34:00 Test Item Value Reference Range Interpretation Comments Sodium (test code = 140 meq/L 810-160 5530-2) Potassium (test code = 4.0 meq/L 3.6-5.5 2823-3) Chloride (test code = 101 meq/L 98-106 2075-0) CO2 (test code = 28 meq/L 20-29 2028-9) BUN (test code = 13 mg/dL - 3094-0) Creatinine (test code 3.66 mg/dL 0.5-1.2 H = 2160-0) Glucose (test code = 159 mg/dL 70-110 H 2345-7) Calcium (test code = 8.4 mg/dL 8.5-10.5 L 16148-2) EGFR (test code = 13 mL/min/1.[place] [address]-6) NOT ACCURATE CREATININE CLEARANCE IN PREDICTING GLOMERULAR FILTRATION RATE . ESTIMATED GFR I S NOT APPLICABLE FOR DIALYSIS PATIENTS. YAKELIN (test code = YAKELIN) Bullet Maker ID - ADMIN Lab Interpretation Abnormal (test code = 04995-6) [facility] METABOLIC [id number] 06:34:00 Test Item Value Reference Range Interpretation Comments SODIUM (BEAKER) 140 meq/L 135-148 (test code = 381) POTASSIUM (BEAKER) 4.0 meq/L 3.6-5.5 (test code = 379) CHLORIDE (BEAKER) 101 meq/L 98-106 (test code = 382) CO2 (BEAKER) (test 28 meq/L - code = 355) BLOOD UREA NITROGEN 13 mg/dL 06-11 (BEAKER) (test code = 354) CREATININE (BEAKER) 3.66 mg/dL 0.50-1.20 H (test code = 358) GLUCOSE RANDOM 159 mg/dL 70-110 H (BEAKER) (test code = 652) CALCIUM (BEAKER) 8.4 mg/dL 8.5-10.5 L (test code = 697) EGFR (BEAKER) (test 13 mL/min/1.73 ESTIMA NHAN GFR IS code = 1092) sq m NOT ACCURATE CREATININE CLEARANCE IN PREDICTING GLOMERULAR FILTRATION RATE . ESTIMATED GFR I S NOT APPLICABLE FOR DIALYSIS PATIEN TS. Bullet Maker ID - ASWYFBwtynicbat6906-21-11 06:23:00 Test Item Value Reference Range Interpretation Comments Phosphorus (test code = 4.0 mg/dL 2.5-4.5 2777-1) YAKELIN (test code = YAKELIN) Bullet Maker ID - ADMIN Lab Interpretation (test Normal code = 65044-3) [facility] 06:23:00 Test Item Value Reference Range Interpretation Comments PHOSPHORUS (BEAKER) (test code = 4.0 mg/dL 2.5-4.5 604) Bullet Maker ID - ADMINCBC with platelet count + automated [id number] 05:45:00 Test Item Value Reference Range Interpretation Comments WBC (test code = 6690-2) 6.6 4.0- 10.0 K/L RBC (test code = 789-8) 2.85 4.00- 5.00 M/L L MCHC (test code = 786-4) 31.3 32.0- 36.0 GM/DL L Hematocrit (test code = 4544-3) 28.1 % 36-46 L MCV (test code = 787-2) 98.6 fL 82-99 MCH (test code = 785-6) 30.9 pg 27-33 RDW (test code = 788-0) 14.3 % 12-15 Platelets (test code = 777-3) 267 150- 430 K/CU MM MPV (test code = 60619-6) 10.6 fL 6-11.5 nRBC (test code = 413) 1 0- 0 /100 WBC H % Neutros (test code = 429) 62 % % Lymphs (test code = 430) 21 % % Monos (test code = 431) 10 % % Eos (test code = 432) 5 % % Baso (test code = 437) 1 % # Neutros (test code = 670) 4.08 1.80- 8.00 K/L # Lymphs (test code = 414) 1.38 1.48- 4.50 K/L L # Monos (test code = 415) 0.67 0.00- 1.30 K/L # Eos (test code = 416) 0.35 0.00- 0.50 K/L # Baso (test code = 417) 0.06 0.00- 0.20 K/L Immature Granulocytes-Relative 1 % 0-0 H (test code = 2801) Lab Interpretation (test code = Abnormal 98950-0) [facility] W/PLT COUNT & AUTO [id number] 05:45:00 Test Item Value Reference Range Interpretation Comments WHITE BLOOD CELL COUNT (BEAKER) 6.6 K/ L 4.0-10.0 (test code = 775) RED BLOOD CELL COUNT (BEAKER) 2.85 M/ L 4.00-5.00 L (test code = 761) HEMOGLOBIN (BEAKER) (test code = 8.8 GM/DL 12.0-15.5 L 410) HEMATOCRIT (BEAKER) (test code = 28.1 % 36.0-46.0 L 411) MEAN CORPUSCULAR VOLUME (BEAKER) 98.6 fL 82.0-99.0 (test code = 753) MEAN CORPUSCULAR HEMOGLOBIN 30.9 pg 27.0-33.0 (BEAKER) (test code = 751) MEAN CORPUSCULAR HEMOGLOBIN CONC 31.3 GM/DL 32.0-36.0 L (BEAKER) (test code = 752) RED CELL DISTRIBUTION WIDTH 14.3 % 12.0-15.0 (BEAKER) (test code = 412) PLATELET COUNT (BEAKER) (test 267 K/CU MM 150-430 code = 756) MEAN PLATELET VOLUME (BEAKER) 10.6 fL 6.0-11.5 (test code = 754) NUCLEATED RED BLOOD CELLS 1 /100 WBC 0-0 H (BEAKER) (test code = 413) NEUTROPHILS RELATIVE PERCENT 62 % (BEAKER) (test code = 429) LYMPHOCYTES RELATIVE PERCENT 21 % (BEAKER) (test code = 430) MONOCYTES RELATIVE PERCENT 10 % (BEAKER) (test code = 431) EOSINOPHILS RELATIVE PERCENT 5 % (BEAKER) (test code = 432) BASOPHILS RELATIVE PERCENT 1 % (BEAKER) (test code = 437) NEUTROPHILS ABSOLUTE COUNT 4.08 K/ L 1.80-8.00 (BEAKER) (test code = 670) LYMPHOCYTES ABSOLUTE COUNT 1.38 K/ L 1.48-4.50 L (BEAKER) (test code = 414) MONOCYTES ABSOLUTE COUNT (BEAKER) 0.67 K/ L 0.00-1.30 (test code = 415) EOSINOPHILS ABSOLUTE COUNT 0.35 K/ L 0.00-0.50 (BEAKER) (test code = 416) BASOPHILS ABSOLUTE COUNT (BEAKER) 0.06 K/ L 0.00-0.20 (test code = 417) IMMATURE GRANULOCYTES-RELATIVE 1 % 0-0 H PERCENT (BEAKER) (test code = 2801) POCT-GLUCOSE [id number] 20:47:00 Test Item Value Reference Range Interpretation Comments POC-GLUCOSE METER 205 mg/dL 70-110 H : TESTED A T SLSL 1317 (BEAKER) (test code [address], = 1538) [place] [address]: Bullet Maker/Techni tammy ID = [id number] for Jared r Gloda Blood Culture - Routine (Left Venipuncture)2020-05-23 13:00:00 Test Item Value Reference Range Interpretation Comments Result (test code = No growth in 5 days 6463-4) [facility] [id number] 13:00:00 Test Item Value Reference Range Interpretation Comments CULTURE (BEAKER) (test No growth in 5 days code = 1095) POCT-GLUCOSE [id number] 11:38:00 Test Item Value Reference Range Interpretation Comments POC-GLUCOSE METER 74 mg/dL 70-110 : TESTED A T SLSL 1317 (BEAKER) (test code = [address], 1538) [place] [address]: Bullet Maker/Techni tammy ID = [id number] for Buff ord, Soheila POCT-GLUCOSE [id number] 07:31:00 Test Item Value Reference Range Interpretation Comments POC-GLUCOSE METER 104 mg/dL 70-110 : TESTED A T SLSL 1317 (BEAKER) (test code [address], = 1538) [place] [address]: Bullet Maker/Techni tammy ID = [id number] for Buff ord, Soheila BASIC METABOLIC [id number] 05:25:00 Test Item Value Reference Range Interpretation [...] S NOT APPLICABLE FOR DIALYSIS PATIEN TS. Bullet Maker ID - [id number] 05:21:00 Test Item Value Reference Range Interpretation Comments PHOSPHORUS (BEAKER) (test code = 5.1 mg/dL 2.5-4.5 H 604) Bullet Maker ID - ADMINVancomycin level, [id number] 05:20:00 Test Item Value Reference Range Interpretation Comments Vancomycin Rm (test 19.7 ug/mL code = 50938-5) YAKELIN (test code = Reference Range: No YAKELIN) NormalsOperator ID - ADMIN [facility] HospitalVANCOMYCIN LEVEL, [id number] 05:20:00 Test Item Value Reference Range Interpretation Comments VANCOMYCIN RANDOM (BEAKER) (test 19.7 ug/mL code = 523) Reference Range: No NormalsOperator ID - ADMINCBC W/PLT COUNT & AUTO [id number] 05:10:00 Test Item Value Reference Range Interpretation [...] PERCENT (BEAKER) (test code = 2801) POCT-GLUCOSE [id number] 20:52:00 Test Item Value Reference Range Interpretation Comments POC-GLUCOSE METER 127 mg/dL 70-110 H : TESTED A T SLSL 1317 (BEAKER) (test code [address], = 1538) [facility] 77 [address]: Bullet Maker/Techni tammy ID = [id number] for chyna Waldrop Tissue [id number] 11:55:00 Test Item Value Reference Range Interpretation Comments Case Report (test code Surgical Pathology = 104) Report Case: [id number] Authorizing Provider: Jada Alfonso DPM Collected: 05/21/2020 12:36 PM Ordering Location: [facility] 5th Floor Received: 05/21/2020 12:49 PM Pathologist: Ann Meeks MD Specimen: Bone, right 1st metatarsal head bone biopsy DIAGNOSIS (test code = [id number] 3220) FuZzEwMzNcZnRuYmpcdWMx VMnncrNkHWlbt5FtX0SwLa AwMFxhbnNpXGRlZmxhbmcx WNWnMJG3buPzTUYoROcnEY VdNHcqMi4xpLTzdXiqFvLw MISlg8eswtKJkcqzyXv8p8 qfOZJqPhF7lZZaGHfpI4sv rmXlwXXqYIMoTIh5gM41VY FmoE9wjBUyPTsoujWaMwX2 MNaxAMPdDkD1FMQabZZuKA BbU6hiIWJaDHgjYYYwJWbu zEMrZBJ8gVdqg6B1aTNsiD MglKnhEwEpXuUqHYLPi9Rj ELq8ySzoO9WmNYRtHtI0aM QgUGFyYWdyYXBoIEZvbnQ7 aA26OKxjfuI8mVAbz7Myb7 2lg033gB5jpJEuNGI3PSCo VFRgaGUqEBSfZTB4GLRetA IcE6r1CxErhTZjZ4L4IaDw eGYsO3N0IjTydHOcJ7B1Wh NgfZFkQRIgfLWwZi4iqCMt sBYfob8asi07UKA0z0XewI zwMSS0QEJ1MuEuBu5hbDVl GZAmMI3pEbGgaMQxVUNdie 09lXnyEQefguBbbE2zChEw GQKkhSKtVGZgKV1doEAvTF HhkF6eypcqSGRoEpGuzxfi WAOwbJksgzOoLd1hdTmlIL B4WPqwA5lpfF1vHhZ4XCqs G6ovwT5xJRa8VVjsoGS5MN IkjV4rWI4bpafvv9fkWrRg BY9cupixh0jiHtIhMP0llt r5y2kaNdYqLQ6tofagr4un NzIwXGhlYWRlcnkwXGZvb3 MnjxkhBKVxf3WwK8BkfIqk J35zoOuaO00mKJOxqNamhZ 9grDigyL5uQxHdRrZoPWay bFxwbGFpblxmMVxmczIwXG vqybfqDBOsONtbI1xfPgKh OKFjbKprSTspn0YfOHKgBI JeQqNfUb6PEVzrDqaBFVOx DtaLM3YdHKBLYCSYPyHOBL ULKYZAGDGAOG7QQ2q1ZIVq rcVlWEPySHPHTuJrE0cPFA NNP8EFBAOHPOVRA2RUXlWI AbRzP9oCR64TFeHEKhURTK 4RWGECQ98vMRVYOdBUA5RP ZdTtF6pUXTXRYIRYTvqJNP 9TVEVPTVlFTElUSVNccGFy rGbsgbMcTYvbs1NvNAlvEE DjMQ4yaRpkBPXeZT1kBQKg K0tkiQ6flgi0AhGoEZZxKu B4SUIiuhK1Egh8GPAmLSle t3rax6JeUREtRXv4dNxgLo TfANVyg8rbtbKvBkFcYDNj QMYmAHFukDOnG978b9uij0 znphHdtHK5HWTtOBB1MMwj psIlipB8EJmrfKBbTfO8FN tccmVkMFxncmVlbjBcYmx1 VJXvH251CIH9pLsts5xuRK S8OSOwBIYhYwUvMm3nbCXu S354HWEwSJCZAGVhxWc9GS TameGhhoYeuWPCm647F688 l1jyMMUdwmYpeKxJqjczw9 xrE358OPNapIMaehSoGoOo VZYdqXBboUN2PYOgSS9cjk wnVWzeEYbgLKTaoxT6YWHs aRFoI4OsNONsBP9jvoolPX S9CDslOCKcFXF7HoNoMZDk c0Ujzjq3LuSwgv0oax69EB I8e5SomMtrIQP7JBU4FfGm Fo6wkWTjIRTtME4mQsHwgJ SwVAJkty47sLvoNKghRVX6 RZVojgGpn5Dyw3hqRhTdec SeM7emS4YmEHYyDQVlTBXg SbFpyjPub0Pjy9XvmZEglI g2f1joLXNaHKEdgTmcz0hw TOS1TRVwcTZeD7jpnK1dJI FjTW1chvufl9cwCLerJIes YTKvmGF7lcR8HXHibHHtI1 QeiI7xDOPwCXpsWCFhppi5 OoChPl6pmRDsuIddRVtoUc twYWdlXHBnbmNvbnRccGdu ZGVjXHBsYWluXHBsYWluXG YwXGZzMjRccWxcbGFuZzEw MzNcaGljaFxmMVxkYmNoXG BkVWkhR1srWoToKhSsFhq0 RKPgcFWyRGVwHha6DJTjgP EfJYFXnAmwtF7mRDWxoBeh eJ3vfEJ6PXMgapVgmBDYaS 3bAKNIlG3tFcJ6HeRjCvJ4 LTQyNDlccGFyfX0= CPT Code(s) (test code z4ogxMVuHRLclJStJqUqJB = 3357) RlVUTej1feDWCrnWWwQhVu MzNcZnRuYmpcdWMxXGRlZm Myl8qhu387nOPjk9fcLCPp TbC3dSPkLXKtqGFiO425KV PpOPuea2dlq4EhYZHznTBt y6L3BLDPqajflXp4oZtwB5 1ir9S7BejxK0voZPRhOJVy T0GwAJ4sQJZkMsa8DQM3ZC U2IITcGJInK8TgJU8uKMNo uVJyIKb8o4mfdRntFJCeBT P3d9jrPAompzPhYG5kme4d pWz9u1oaxeTpLHVrAXCseB FRBMLpT6VkuFaiHj0ukIl2 rXrtZwdsIHV1Azr7GA0rct 33bqt8aGfqCJDfqrarWcM6 QHwfHKFzgsfiUZr0IGofCJ JnbDcyMFxtYXJncjcyMFxt YXJndDcyMFxtYXJnYjcyMF gpBHNsBGV0ZXwmp457TDM7 RYcjt5ehh8anlGLaXir8WG SuWcTqIwqnFPgio7Hcx9um SDRned8cGQZ8uNYdzFild8 K7fVDqDIFdaKXrkwMcIXBv HjN6BLunES7uvo49BYDfNQ K2wr5efNAqhYbwnwZzcQKc PIsmA6FgSOOls061MNLaC1 QeTNXbs4X4jlFxIgYlTJAp vMQ3dpS2MUYbGKh6zESrbe D0jdPmpRWhY3zypZ60SkVa qRUmE5WyrH25CfBcjIOpL9 KdyY12RfTczJKrD4RjmB15 DdYkpTGlBQDdiFCoLj3eaO HztNNps9YfeJJpRXueG37q i304KCXnxoLcB4ypwQLzir czwTMykfitGPmrrdW1GFWc XHBsYWluXGYxXGZzMjBcbG FuZzEwMzNcaGljaFxmMVxk LjOdFOCyAJlkY7saWrIkMt WqSNG0BMZdHkfjUScqWRBu cGFyfQ== CLINICAL HISTORY (test v9qvcFGoAQSrhYQhEkVzXV code = 3356) AtUKKxe1stAAWccTYnGzGm MzNcZnRuYmpcdWMxXGRlZm Upl4ozs552qKZvt0lpKIHi JzW0aZOiKVBpzAZkU624s1 wxx4olxbOvcZT3ZVIcNCQ0 KKpxqbEggyC4AIzxvQVeZj K7SLjuplBtWDdugfQnswMn Kwr7ZDReH925XUG8lUwqv0 izEIE0TZHnMOOaWgMwXp4a xKMbP604LCJzEIWHFZDkfI f0EAIjwmDfzoVmfGBBa766 B594l3wyESXbejTzsUsYnx jat9xdE319GAMygWHxcqJm YySvQJBlxSExrLI8TXXcNF 4frgnvApKzBO1nfzbtYjXq BT0epmm3VaZvIM5ftmvcJu EzNTicYTJpzcsaATNog7St duefQB7oD6Pbj0T9qJ0clL NeHAJmiWPhFfSjEEGydu1r gRVfUYzwg2YiJGX1orV9hD VctIPuSAFrRE42Hinik0Fh YqkqNKC1XCVwdcAsu4Nnf0 xjMbDdeaCsG9gqV5MaATYj HIAbAKAmEmYsacZyr3Vof8 LdnGHyoKi0t4ydZIOsWXAg pNzqr3yrVAF9JEOyY9G3vH Heu8bdLOyaCOZwpER6exto WMojRFFcryR5aqtdZJjdJY OpdRV2buxmBIbxRBBoUrI0 peblKJpxJCJaKXY5SNdpx9 60URQ8EIfmDyodRSolTCHp bmNvbnRccGduZGVjXHBsYW luXHBsYWluXGYwXGZzMjRc kKrusQuxgO8bCzGeNaVrHW ncLH2oAWBoS0jwmUYrSZLz TJYcJ8juHaJmrO2qiYmgSF bepjTnQQBaD6u6QESte2Kd HHXlZ7Hcj9deFMG4 SPECIMEN SOURCE (test e0bqzSFiWZLxwHBvJbApQQ code = 3377) HgVRNtu0vlNMTqtWDyUfTt MzNcZnRuYmpcdWMxXGRlZm Srl9dzp182fBYsa3meWYUr FmQ4sOBtVJTaqXFcU697f8 qrd6yphqIfxZR2HOEjLTM4 XGfhhmQeelX8JAarvNRvId S7TQzyaxVnUNmruoCjubEm Kvy7UQXjB483HDI9eZpmc1 eoPXK8QROdPUTqBvElLy5k tRQsM299KMItQTXIEXShdA n7IVJpqzEcvdWjeIPUl865 W229j2fhICBnlcEowAiIma ogd4ceL297UQSmjFNxulYw FcEeHNHweFImoDH7YFZuOZ 1cozqxZzQnZO0dhjikVxTm MJ6whdh6NsWfMA5ghnmpUe JrHNuiCZTplyucASLdl1Yo rfwwIX2hT8Fzp0W5yG8ouX JkNHOabIYgQwCfDAYfnz5r bELtEHiwj0HkGUX7liR1zZ NhqVKqTYRnIP47Ccdxu0Kt LhwxZBR8HBTikoVob6Jcp0 wkRiXujuWtU9bdZ0EwBXQr JKPeOQVsOmQinfEke9Mtr1 TlcZYirKt5s7kxMGXxBWRa uTmdo4svXMS3HHZsC8B5fT Zie0raSWwkOUXiyZW2qrjm YWooQYEqbnC8qkdjSSgtFZ HepHK1ezdkDAskIEEuYtY9 niuhKTfjCSAbPYW1DWqso7 46YSO1CWgrJaemSUgyBAQg bmNvbnRccGduZGVjXHBsYW luXHBsYWluXGYwXGZzMjRc oMfikFqktO4pXrGyImXkUU qkVA8wAUJvP8slnJXwKQRs XZRhS0kpUcColL7ywFpzVG atdyFhTWHyL0y3JBVmeFVm PNOrkOWbj1JmTQqvMQZmLc 9aPODnaW4fj9ygcDFnoJ== GROSS DESCRIPTION (test d7pxlAStLTIwuCBiNaSjFT code = 3366) HhNNAsc0zyAOCaoHTbZgUu MzNcZnRuYmpcdWMxXGRlZm Qbw2cgt201qXHwh8odUHCd UuZ7aQMmHCBxfAAcQ861s4 ecc6qiefQekLX4DOKoTGX7 DCrigiRlzuM1HLyzxWFyWi J3HSwcgcMlDOffeyVpsaOf Pwh8RYQrA953DYS5wMzxj1 fsDCJ2LSNjLHImKoMnCc2q tPAbF443KHAxVAMPANBttB m3IMZcnjThtjUflZSLk236 E001p8giKWVmqnLecHoIqq tnq9mwU639XAKwbWVpgsWy UzWgWSNydONcpVM5PBLuSW 6ivgpnOaWvHA1dcystWlBc YI4tiqm0PzQsLC2zphazJj HwDYboFZEczpawEMPhx8Fn nhbxIC5oQ9Jlb1W7dV2yuV ZgYAPjnZPkBfKvBZBpup2f rOUdULfxu9NeIKZ3crL4cE WcyJVhXYIjKE94Mjoln2Bp AepjOMH6HDZjshUql6Pfs2 iqMtOrfcCxT7zdI1QqGFSe LDFhYUJgYaHouhZjy2Onp9 XsfNHlvIw2d5xsQBVmGRIb xGlnv4fdEQD9TNBvE2T8pV Obj4beTIefVBDhmIW8nwxp ZToyROMjznX7opzhDVstUX MaiNJ6cyquGVyfHXZvHyU3 uqgrIAarNITnDVF4AJfka2 14PPU0EWzkElthJVrgVDIj bmNvbnRccGduZGVjXHBsYW luXHBsYWluXGYwXGZzMjRc bOcylKvadZ3rWhCgPrTqML rxCZ0ePNYqW8dzcDWvSFLa TVNkH2fnXsIzxK5qoCgaCS xmczIwIFNwZWNpbWVuIGlz KSNwI3IrmbDlEJfbKOEksm 0hzTdaLIOqz1yffdG7LZGs IjXoqoIvASJnIBUrs75ttR I4kmZhGzC9k23whEGqQJCs HACmo35nNRJePUcaGH78fh IrGJVxmXJkzabaROJ4LFMw PbD0WRYbPfKgsBllv9TjiV r5aDCqYJWcnWHxAAEyG3Ht F8jtzVZxlCkqwfSmnhZxYI XlMOE7PZGZSB6sIQRLT7Ia XHBhcn0= MICROSCOPIC DESCRIPTION h7mzyAFnVSRqjRXoYsGaVX (test code = 3371) PiNACgb3odOGQfcKCyKmKp MzNcZnRuYmpcdWMxXGRlZm Byt0qjr430mKUel7clDSTi FdC5sPXqRPUccGAaN543b7 gfh9ipqpKeaLU6KZGkXEC5 FNdaedJpsxG1RGoskICcYf P0ATtlgeLxDLwnmdLjzsBr Imd1LWXiK890RLE9jMmvg6 kxZFQ7XLLsOQYoOfLwQn0f jEUbC655ZMXfGZKQDNHdbY w5IGWxduSsyqWcbMYYc330 A568x6ctIODvwgVumNeBet ssx2ssA585FGVsoWGlapUp QgXjBXImzHQyoQN3UQNjTX 2wzftsEvDxSR3uzrozNzPs ML6uonl2IvHhMU3vmfsbWh RvIMqxLEUpgvbeDGKal1My jnjtJE1mC3Wty9D0sH5axP QlFAHvvQKyIjRwIGBacp2x wJTbPRgim3VpNHW5elN3kE JatHPmHOAwVV71Pyckj0Rr KdurGSE2RAXucwVwx1Eqj2 xqZzErcvToZ7jfJ2LzUKQi OXTuHMHbKzZzixEsa6Pab3 YqiGDpzPz9i1kuGFQdTUQk oHexe3chBKQ7QMDeM2W1zT Lny2mtBKtgRGWiqSF5hfru TBtuERDkeqH9fgasDXppDF AurSH2erpsYNrzVNXeLiH4 tbsiSIvqDWQlKXT4FUion8 70LFA1IDgpHvwhHQoyWVPq bmNvbnRccGduZGVjXHBsYW luXHBsYWluXGYwXGZzMjRc yLvhlGfvaX6tEvRoIsVpOL hcNX8iHVMiO6dwxZHcXVQx OEIjF5axToMmvY6obSsuXN dvanKsGSHsueNvht4nAK5h XHBhcn0= Gross assessment was [facility] performed at (test [facility], Department = 2777) of Pathology, [address] [place] [address], Technical component was [facility] performed at (test [facility], = 2778) Department of Pathology, [address] [place] [address] [place] [address], Professional component [facility] was performed at ([facility], Department code = 2779) of Pathology, [address] [place], [place] [address], [facility] [id number] 11:55:00Surgical Pathology Report Case: [id number] Authorizing Provider: Jada Alfonso DPM Collected: 05/21/2020 12:36 PM Ordering Location: [facility] Med Surg 5th Floor Received: 05/21/2020 12:49 PM Pathologist: Ann Meeks MD Specimen: Bone, right 1st metatarsal head bone biopsy BONE, RIGHT FIRSTMETATARSAL HEAD, BIOPSY: - BONE WITH FOCAL FIBROSIS AND CHRONIC INFLAMMATION, CONSISTENT WITH CHRONIC OSTEOMYELITIS Signing Pathologist Direct Phone Line: [phone] signed by Ann Meeks MD on 05/22/2020 at 11:55 [id number]; 11139Htias foot abscessRight 1st metatarsalhead bone biopsySpecimen is received in formalin designated "bone" and consists of two marin-red bone fragments measuring 1 x 0.3 x 0.3 cm, submitted after decalcification in cassette A1. SQ/plPerformed. [facility], Department of Pathology, [address] [place] [address], Fbvhbd [facility], Department of Pathology, [address] [place] [address], [facility], Department of [facility], [address] [place] [address], BBTW-GLUCOSE [id number] 11:41:00 Test Item Value Reference Range Interpretation Comments POC-GLUCOSE METER 84 mg/dL 70-110 : TESTED A T [facility] [address] (BEAKER) (test code = [address], [address]) [place] [address]: Bullet Maker/Techni tammy ID = [id number] for Mary Adames POCT-GLUCOSE [id number] 07:38:00 Test Item Value Reference Range Interpretation Comments POC-GLUCOSE METER 93 mg/dL 70-110 : TESTED A T [facility] [address] (BEAKER) (test code = [address], [address]) [facility] [place] [address]: Bullet Maker/Techni tammy ID = [id number] for Mary Adames BASIC METABOLIC [id number] 06:04:00 Test Item Value Reference Range Interpretation [...] S NOT APPLICABLE FOR DIALYSIS PATIEN TS. Bullet Maker ID - [id number] 05:51:00 Test Item Value Reference Range Interpretation Comments PHOSPHORUS (BEAKER) (test code = 4.4 mg/dL 2.5-4.5 604) Bullet Maker ID - ADMINCBC W/PLT COUNT & AUTO [id number] 05:30:00 Test Item Value Reference Range Interpretation [...] PERCENT (BEAKER) (test code = 2801) POCT-GLUCOSE [id number] 21:49:00 Test Item Value Reference Range Interpretation Comments POC-GLUCOSE METER 95 mg/dL 70-110 : TESTED A T [facility] [address] (BEAKER) (test code = [address], [address]) [facility] [address]: Bullet Maker/Techni tammy ID = [id number] for [address] Jacquie POCT-GLUCOSE [id number] 12:40:00 Test Item Value Reference Range Interpretation Comments POC-GLUCOSE METER 80 mg/dL 70-110 : TESTED A T [facility] [address] (BEAKER) (test code = [address], [address]) [place] [address]: Bullet Maker/Techni tammy ID = [id number] for Berenice Hamilton hCG, serum, [id number] 10:42:00 Test Item Value Reference Range Interpretation Comments Preg Test, Serum (test code = Negative 0-5) [facility], SERUM, [id number] 10:42:00 Test Item Value Reference Range Interpretation Comments TEST SERUM (BEAKER) (test Negative code = 584) POCT-GLUCOSE [id number] 07:56:00 Test Item Value Reference Range Interpretation Comments POC-GLUCOSE METER 105 mg/dL 70-110 : TESTED A T [facility] [address] (BEAKER) (test code [address], = [address]) [place] [address]: Bullet Maker/Techni tammy ID = [id number] for Mary Adames ABORH, [id number] 05:28:00 Test Item Value Reference Range Interpretation Comments ABO Grouping (test code = 2588) O Rh Factor (test code = 2589) POS [facility] HospitalType and screen, [id number] 04:53:00 Test Item Value Reference Range Interpretation Comments ABO/RH AUTOMATED (BEAKER) (test O POSITIVE code = 2260) Ab Scrn (test code = 890-4) NEGATIVE [facility] Hospital[facility], TIBC, % sat. (without ferritin)2020-05-21 04:24:00 Test Item Value Reference Range Interpretation Comments Iron (test code = 2498-4) 68.0 ug/dL 45-170 TIBC (test code = 2500-7) 170 ug/dL 250-550 L Iron % Saturation (test 40 % 20-55 code = 2502-3) YAKELIN (test code = YAKELIN) Bullet Maker ID - ADMIN Lab Interpretation (test Abnormal code = 81432-4) [facility] HospitalBASIC MET[facility]OLIC [id number] 04:24:00 Test Item Value Reference Range Interpretation [...] S NOT APPLICABLE FOR DIALYSIS PATIEN TS. Bullet Maker ID - ADMINIRON, TIBC, % SAT. (WITHOUT FERRITIN)2020-05-21 04:24:00 Test Item Value Reference Range Interpretation Comments IRON (BEAKER) (test code = 547) 68.0 ug/dL 45.0-170.0 TOTAL IRON BINDING CAPACITY 170 ug/dL 250-550 L (BEAKER) (test code = 769) IRON % SATURATION (2) (BEAKER) 40 % 20-55 (test code = 2590) Bullet Maker ID - [id number] 04:20:00 Test Item Value Reference Range Interpretation Comments Magnesium (test code = 2.0 mg/dL 1.5-3 14555-2) YAKELIN (test code = YAKELIN) Bullet Maker ID - ADMIN Lab Interpretation (test Normal code = 95518-2) [facility] HospitalMAGNESIUM2020-10-05 04:20:00 Test Item Value Reference Range Interpretation Comments MAGNESIUM (BEAKER) (test code = 2.0 mg/dL 1.5-3.0 627) Bullet Maker ID - ADMINProthrombin time/[id number] 04:18:00 Test Item Value Reference Range Interpretation [...] Output) Lab Interpretation Normal (test code = 63615-8) [facility] HospitalaPTT2020-10-05 04:18:00 Test Item Value Reference Range Interpretation Comments PTT (test code = 27.9 23.0- 35.0 sec 16812-7) YAKELIN (test code = YAKELIN) Final Information (Auto Output) Lab Interpretation (test Normal code = 04027-6) [facility] HospitalPROTHROMBIN [id number] 04:18:00 Test Item Value Reference Range Interpretation Comments PROTIME (BEAKER) (test code = 759) 10.9 sec 9.3-12.0 INR (BEAKER) (test code = 370) 1.00 <=5.90 RECOMMENDED COUMADIN/WARFARIN INR THERAPY RANGESSTANDARD DOSE: 2.0 - 3.0 Includes: PROPHYLAXIS forvenous thrombosis, systemic embolization; TREATMENT for venous thrombosis and/or pulmonary embolus.HIGH RISK: Target INR is 2.5-3.5 for patients with mechanical heart valves.Final Information (Auto Output)Final Information (Auto Output)[id number] 04:18:00 Test Item Value Reference Range Interpretation Comments PARTIAL THROMBOPLASTIN TIME (BEAKER) 27.9 sec 23.0-35.0 (test code = 760) Final Information (Auto Output)[id number] 04:17:00 Test Item Value Reference Range Interpretation Comments PHOSPHORUS (BEAKER) (test code = 6.9 mg/dL 2.5-4.5 H 604) Bullet Maker ID - ADMINVANCOMYCIN LEVEL, [id number] 04:16:00 Test Item Value Reference Range Interpretation Comments VANCOMYCIN RANDOM (BEAKER) (test 13.8 ug/mL code = 523) Reference Range: No NormalsOperator ID - ADMINCBC W/PLT COUNT & AUTO [id number] 04:03:00 Test Item Value Reference Range Interpretation [...] % 0-0 PERCENT (BEAKER) (test code = 6241) POCT-GLUCOSE [id number] 21:19:00 Test Item Value Reference Range Interpretation Comments POC-GLUCOSE METER 118 mg/dL 70-110 H : TESTED A T [facility] [address] (BEAKER) (test code [address], = 1538) [place] [address]: Bullet Maker/Techni tammy ID = [id number] for Jacquie Vázquez POCT-GLUCOSE [id number] 16:03:00 Test Item Value Reference Range Interpretation Comments POC-GLUCOSE METER 273 mg/dL 70-110 H : TESTED A T [facility] [address] (BEAKER) (test code [address], = [address]) [place] [address]: Bullet Maker/Techni tammy ID = [id number] for Mary Adames POCT-GLUCOSE [id number] 11:32:00 Test Item Value Reference Range Interpretation Comments POC-GLUCOSE METER 224 mg/dL 70-110 H : TESTED A T [facility] [address] (BEAKER) (test code [address], = 1538) [place] [address]: Bullet Maker/Techni tammy ID = [id number] for Mary Adames POCT-GLUCOSE [id number] 07:33:00 Test Item Value Reference Range Interpretation Comments POC-GLUCOSE METER 260 mg/dL 70-110 H : TESTED A T [facility] [address] (BEAKER) (test code [address], = 1538) [place] [address]: Bullet Maker/Techni tammy ID = [id number] for Mary Adames TSH/Free T4 If [id number] 07:06:00 Test Item Value Reference Range Interpretation Comments TSH (test code = 3.130 0.350- 5.500 uIU/mL 67113-3) YAKELIN (test code = YAKELIN) Bullet Maker ID - ADMIN Lab Interpretation (test Normal code = 67881-6) [facility] HospitalTSH/FREE T4 IF [id number] 07:06:00 Test Item Value Reference Range Interpretation Comments THYROID STIMULATING HORMONE 3.130 uIU/mL 0.350-5.500 (BEAKER) (test code = 772) Bullet Maker ID - ADMINBASIC METABOLIC [id number] 06:52:00 Test Item Value Reference Range Interpretation [...] S NOT APPLICABLE FOR DIALYSIS PATIEN TS. Bullet Maker ID - [id number] 06:49:00 Test Item Value Reference Range Interpretation Comments MAGNESIUM (BEAKER) 1.9 mg/dL 1.5-3.0 Specimen slightly (test code = 627) hemolyzed Bullet Maker ID - [id number] 06:46:00 Test Item Value Reference Range Interpretation Comments PHOSPHORUS (BEAKER) 6.2 mg/dL 2.5-4.5 H Specimen slightly (test code = 604) hemolyzed Bullet Maker ID - ADMINCBC W/PLT COUNT & AUTO [id number] 05:25:00 Test Item Value Reference Range Interpretation [...] PERCENT (BEAKER) (test code = 2801) POCT-GLUCOSE [id number] 22:13:00 Test Item Value Reference Range Interpretation Comments POC-GLUCOSE METER 318 mg/dL 70-110 H : TESTED A T [facility] [address] (BEAKER) (test code [address], = 1538) [facility] [address]: Bullet Maker/Techni tammy ID = [id number] for Elissa Diaz POCT-GLUCOSE [id number] 16:36:00 Test Item Value Reference Range Interpretation Comments POC-GLUCOSE METER 238 mg/dL 70-110 H : Notified RN/MD: TESTED (BEAKER) (test code AT [facility] [address] = 1538) [place] [address]: Bullet Maker/Techni tammy ID = [id number] for Cuate Castañeda Hepatitis B surface [id number] 12:07:00 Test Item Value Reference Range Interpretation Comments Hep B S Ab (test code = 9.4 <8.0 mIU/mL H 34634-8) YAKELIN (test code = YAKELIN) Bullet Maker ID - ROSIANG Lab Interpretation (test Abnormal code = 13125-8) [facility] [id number] 12:07:00 Test Item Value Reference Range Interpretation Comments HEPATITIS B SURFACE ANTIBODY 9.4 mIU/mL <8.0 H (BEAKER) (test code = 647) Bullet Maker ID - ORRYGPOCT-GLUCOSE [id number] 11:31:00 Test Item Value Reference Range Interpretation Comments POC-GLUCOSE METER 170 mg/dL 70-110 H : Notified RN/MD: TESTED (TAINA) (test code AT [facility] [address] = 1538) [place] [address]: Bullet Maker/Techni tammy ID = [id number] for Cuate Castañeda VANCOMYCIN LEVEL, [id number] 09:31:00 Test Item Value Reference Range Interpretation Comments VANCOMYCIN RANDOM (BEAKER) (test 14.3 ug/mL code = 523) Reference Range: No NormalsOperator ID - ADMINBASIC METABOLIC [id number] 08:59:00 Test Item Value Reference Range Interpretation [...] S NOT APPLICABLE FOR DIALYSIS PATIEN TS. Bullet Maker ID - [id number] 08:56:00 Test Item Value Reference Range Interpretation Comments MAGNESIUM (BEAKER) (test code = 1.9 mg/dL 1.5-3.0 627) Bullet Maker ID - [id number] 08:53:00 Test Item Value Reference Range Interpretation Comments PHOSPHORUS (BEAKER) (test code = 4.7 mg/dL 2.5-4.5 H 604) Bullet Maker ID - ADMINCBC W/PLT COUNT & AUTO [id number] 08:51:00 Test Item Value Reference Range Interpretation [...] PERCENT (BEAKER) (test code = 2801) POCT-GLUCOSE [id number] 07:53:00 Test Item Value Reference Range Interpretation Comments POC-GLUCOSE METER 153 mg/dL 70-110 H : Notified RN/MD: TESTED (BEAKER) (test code AT [address] = 1538) [facility] [address]: Bullet Maker/Techni tammy ID = [id number] for Cuate Castañeda SARS-CoV2/RT-PCR (Asymptomatic ONLY)2020-05-19 00:02:00 Test Item Value Reference Range Interpretation Comments SARS-COV2/RT-PCR Negative Not Detected, (test code = Negative, See 86781-4) external report for linked test SARS-COV-2 [facility] PERFORMING LAB (test code = 63877-5) YAKELIN (test code = Negative result for [...] of the Act. Fact Sheet for Healthcare Providers:https://www.MOLOME/sites/default/f shruthi/product/documents/F act_Sheet_HC_Providers_L sgx_MRSO-ByV-9.pdf Fact Sheet for Healthcare Patients:https://www.Everest/sites/default/fi les/product/documents/Fa ct_Sheet_Patients_Lyra_S ARS-CoV-2.pdf Performing Laboratory:[facility], [place] [address] [place], [place] [address]ARS-COV2/RT-PCR ([facility])2020-05-19 00:02:00 Test Item Value Reference Range Interpretation Comments SARS-COV2/RT-PCR (test Negative Not Detected, Negative, code = 0643666) See external report for linked test SARS-COV-2 PERFORMING LAB [facility] (test code = 3001982) Negative result for this test determines that [...] 564(g) of the Act.Fact Sheet for Healthcare Providers:https://www.Box Garden.AuctionPay/sites/default/files/product/documents/Fact_Shee v_JD_Xpjgfpmxj_Piir_WNRM-OqO-2.pdfFact Sheet for Healthcare Patients:https://www.[employer] Garden.AuctionPay/sites/default/files/product/ documents/Bshy_Icxih_Qlthxijv_Kefw_HUNE-ZiU-1.pdfPerforming Laboratory:[facility], [place] [address]KHCG-FXCYEJD METER 2020-05-18 21:01:00 Test Item Value Reference Range Interpretation Comments POC-GLUCOSE METER 190 mg/dL 70-110 H : TESTED A T [facility] [address] (BEAKER) (test code [address], = 1538) [facility] 77 [address]: Bullet Maker/Techni tammy ID = [id number] for Nehal Patiño Hepatitis B surface [id number] 20:29:00 Test Item Value Reference Range Interpretation Comments HBsAg Screen (test code = Nonreactive Nonreactive 5195-3) YAKELIN (test code = YAKELIN) Bullet Maker ID - ADMIN Lab Interpretation (test Normal code = 50222-1) [facility] SURFACE [id number] 20:29:00 Test Item Value Reference Range Interpretation Comments HEPATITIS B SURFACE ANTIGEN (2) Nonreactive Nonreactive (BEAKER) (test code = 2585) Bullet Maker ID - ADMINPOCT-GLUCOSE [id number] 16:43:00 Test Item Value Reference Range Interpretation Comments POC-GLUCOSE METER 211 mg/dL 70-110 H : TESTED A T [facility] [address] (BEAKER) (test code [address], = 1538) [facility] 77 [address]: Bullet Maker/Techni tammy ID = [id number] for Mary Adames MR, EXTREMITY, LOWER, WITHOUT CONTRAST, [id number] 15:44:00Recent amputation for R great toe osteomyelitis/diabetic [...] imaging follow-up if clinically appropriate. Signed:Guanako Tyler Verified Date/Time: 05/18/2020 15:44:11 Reading Location: [facility] Radiology Reading Room MR lower extremity without IV contrast right [id number] 15:44:00Interface, External Ris In - 05/18/2020 3:46 [...] Tyler Verified Date/Time: 05/18/2020 15:44:11 Reading Location: [facility] Rad[facility] 2020-05-18 12:55:00 Test Item Value Reference Range Interpretation Comments POC-GLUCOSE METER 169 mg/dL 70-110 H : TESTED A T [facility] [address] (BEAKER) (test code [address], = 1538) [facility] [place] [address]: Bullet Maker/Techni tammy ID = [id number] for Mary Adames Hepatic function [id number] 09:20:00 Test Item Value Reference Range Interpretation Comments Protein, Total (test 6.9 6.0- 8.5 gm/dL Speci men code = 2885-2) slightly hemolyzed Albumin (test code = 3.1 g/dL 3.5-5 [place] [address]-3) slightly hemolyzed Total Bilirubin (test 0.5 mg/dL [...] slightly hemolyzed YAKELIN (test code = YAKELIN) Bullet Maker ID - ADMIN Lab Interpretation Abnormal (test code = 99035-5) [facility] Hospital[facility]emoglobin [id number] 09:20:00 Test Item Value Reference Range Interpretation Comments Hemoglobin A1C (test code 9.4 % 4.3-6.1 H = 4548-4) YAKELIN (test code = YAKELIN) Bullet Maker ID - ADMIN Lab Interpretation (test Abnormal code = 67465-1) [facility] HospitalHEPATIC FUNCTION [id number] 09:20:00 Test Item Value Reference Range Interpretation [...] Specimen slightly (test code = 347) hemolyzed Bullet Maker ID - [id number] 09:20:00 Test Item Value Reference Range Interpretation Comments MAGNESIUM (BEAKER) 3.8 mg/dL 1.5-3.0 H Specimen slightly (test code = 627) hemolyzed Bullet Maker ID - ADMINHEMOGLOBIN [id number] 09:20:00 Test Item Value Reference Range Interpretation Comments HEMOGLOBIN A1C (BEAKER) (test code = 9.4 % 4.3-6.1 H 368) Bullet Maker ID - ADMINC-Reactive [id number] 09:19:00 Test Item Value Reference Range Interpretation Comments CRP (test code = 676) 1.17 mg/dL 0-0.5 H YAKELIN (test code = YAKELIN) Bullet Maker ID - ADMIN Lab Interpretation (test Abnormal code = 89402-6) [facility] HospitalBASIC METABOLIC [id number] 09:19:00 Test Item Value Reference Range Interpretation [...] S NOT APPLICABLE FOR DIALYSIS PATIEN TS. Bullet Maker ID - ADMINC-REACTIVE [id number] 09:19:00 Test Item Value Reference Range Interpretation Comments C-REACTIVE PROTEIN (BEAKER) (test 1.17 mg/dL 0.00-0.50 H code = 676) Bullet Maker ID - ADMINVancomycin level, [id number] 09:18:00 Test Item Value Reference Range Interpretation Comments Vancomycin Tr (test code = 15.1 ug/mL 10-20 4092-3) YAKELIN (test code = YAKELIN) Bullet Maker ID - ADMIN Lab Interpretation (test Normal code = 51156-4) [facility] HospitalVANCOMYCIN LEVEL, [id number] 09:18:00 Test Item Value Reference Range Interpretation Comments VANCOMYCIN TROUGH (BEAKER) (test 15.1 ug/mL 10.0-20.0 code = 522) Bullet Maker ID - ADMINCBC W/PLT COUNT & AUTO [id number] 09:09:00 Test Item Value Reference Range Interpretation [...] PERCENT (BEAKER) (test code = 2801) POCT-GLUCOSE [id number] 08:18:00 Test Item Value Reference Range Interpretation Comments POC-GLUCOSE METER 177 mg/dL 70-110 H : TESTED A T [facility] [address] (BEAKER) (test code [facility] [address], = 1538) [facility] 77 [address]: Bullet Maker/Techni tammy ID = [id number] for Lyndaregulo marcano, Mary RAD, CHEST, 1 VIEW, NON [id number] 08:11:00Reason for exam:->shortness of breathShould this be performed at the bedside?->YesFINAL REPORT CLINICAL HISTORY: shortness of breath TECHNIQUE: 1 view of the chest. COMPARISON: 07/18/2019 IMPRESSION: There are new, mildly prominent interstitial opacities bilaterally. There is no lobar consolidation or significant pleural fluid. There is no cardiomegaly. Surgical clips are seen in the medial left upper arm. Signed: Marychuy Bueno MDRsisi Verified Date/Time: 05/18/2020 08:11:49 Reading Location: [facility] Radiology Reading Room Electronically signedby: MARYCHUY BUENO M.D. on 05/18/2020 08:11 AMXR chest 1 view portable / [id number] 08:11:00Interface, External Ris In - 05/18/2020 8:13 [...] Bueno Verified Date/Time: 05/18/2020 08:11:49 Reading Location: [facility] Radiology Reading Room [facility] [id number] 00:00:00Ordered by an unspecified provider.[facility] CenterHEPAT[facility]IS B SURF AB, [id number] 18:16:00 Test Item Value Reference Range Interpretation [...] ~~~~~~~~ ~~~~~~~~~~~~~~~ ~~~~~~~~ ~ AG HEPATITIS B [id number] 18:16:00 Test Item Value Reference Range Interpretation Comments AG HEPATITIS B SURFACE (test code = NEGATIVE NONREACTIVE HBSAG) HIV 12 AB [id number] 18:16:00 Test Item Value Reference Range Interpretation Comments HIV 1 2 COMBO AG/AB SCREEN AB/AG NON REACTIVE NONREACTIVE (test code = [id number]) HEPATITIS B SURF AB, [id number] 17:51:00 Test Item Value Reference Range Interpretation Comments HEPATITIS B SURF AB, QUANT (test code mIU/mL = HBSABQ) AG HEPATITIS B [id number] 17:51:00 Test Item Value Reference Range Interpretation Comments AG HEPATITIS B SURFACE (test code = NEGATIVE NONREACTIVE HBSAG) HIV 12 AB [id number] 17:51:00 Test Item Value Reference Range Interpretation Comments HIV 1 2 COMBO AG/AB SCREEN AB/AG NON REACTIVE NONREACTIVE (test code = LYP53UFRER) HEPATITIS B SURF AB, [id number] 17:39:00 Test Item Value Reference Range Interpretation Comments HEPATITIS B SURF AB, QUANT (test code mIU/mL = HBSABQ) AG HEPATITIS B [id number] 17:39:00 Test Item Value Reference Range Interpretation Comments AG HEPATITIS B SURFACE (test code = NEGATIVE NONREACTIVE HBSAG) HIV 12 AB [id number] 17:39:00 Test Item Value Reference Range Interpretation Comments HIV 1 2 COMBO AG/AB SCREEN (test code = NONREACTIVE URB28JGEQB) GLUCOSE BEDSIDE [id number] 12:00:00 Test Item Value Reference Range Interpretation Comments GLUCOSE BEDSIDE TESTING (test code 136 MG/DL 60-99 H = GLUBED) GLUCOSE BEDSIDE [id number] 21:08:00 Test Item Value Reference Range Interpretation Comments GLUCOSE BEDSIDE TESTING (test code = 84 MG/DL 60-99 N GLUBED) BASIC METABOLIC [id number] 16:40:00 Test Item Value Reference Range Interpretation [...] 9.0 MG/DL 8.4-10.2 N CA) HCG SERUM [id number] 16:40:00 Test Item Value Reference Range Interpretation Comments HCG SERUM QUAL (test code = HCGQL) NEGATIVE NEGATIVE A PROTHROMBIN [id number] 16:32:00 Test Item Value Reference Range Interpretation [...] sunshine embolism. 3.0 - 4.5 Comments to [employer] Laboratory Director: PREOPPTT [id number] 16:32:00 Test Item Value Reference Range Interpretation Comments PTT ACTIVATED (test code = APTT) 30.3 SECONDS 22.0-33.0 N Comments to [employer] Laboratory Director: PREOPBASIC METABOLIC [id number] 16:32:00 Test Item Value Reference Range Interpretation [...] code = CA) MG/DL 8.7-9.7 HCG SERUM [id number] 16:32:00 Test Item Value Reference Range Interpretation Comments HCG SERUM QUAL (test code = HCGQL) NEGATIVE NEGATIVE A BASIC METABOLIC [id number] 16:31:00 Test Item Value Reference Range Interpretation [...] code = CA) MG/DL 8.7-9.7 HCG SERUM [id number] 16:31:00 Test Item Value Reference Range Interpretation Comments HCG SERUM QUAL (test code = HCGQL) NEGATIVE CBC W/AUTO [id number] 16:25:00 Test Item Value Reference Range Interpretation [...] 0.00 K/mm3 0.0-0.1 N NRBC#) GLUCOSE BEDSIDE [id number] 18:41:00 Test Item Value Reference Range Interpretation Comments GLUCOSE BEDSIDE TESTING (test code = 83 MG/DL 60-99 N GLUBED) BASIC METABOLIC [id number] 15:04:00 Test Item Value Reference Range Interpretation [...] 9.1 MG/DL 8.4-10.2 N CA) BASIC METABOLIC [id number] 15:00:00 Test Item Value Reference Range Interpretation [...] code = CA) MG/DL 8.7-9.7 HCG SERUM [id number] 14:59:00 Test Item Value Reference Range Interpretation Comments HCG SERUM QUAL (test code = HCGQL) NEGATIVE NEGATIVE A PROTHROMBIN [id number] 14:56:00 Test Item Value Reference Range Interpretation [...] syste sunshine embolism. 3.0 - 4.5 PTT [id number] 14:56:00 Test Item Value Reference Range Interpretation Comments PTT ACTIVATED (test code = APTT) 27.9 SECONDS 22.0-33.0 N CBC W/AUTO [id number] 14:43:00 Test Item Value Reference Range Interpretation [...] N NRBC#) RAD, CHEST, 1 VIEW, NON [id number] 11:27:00Reason for exam:->r/o pneumoniaShould this be performed [...] [facility] Radiology Reading Room POCT-GLUCOSE [id number] 08:34:00 Test Item Value Reference Range Interpretation Comments POC-GLUCOSE METER 126 mg/dL 70-110 H : TESTED A T [facility] 6720 (BEAKER) (test code = [place], 1538) [address]: Bullet Maker/Techni tammy ID = [id number] for Baldomero Carney ECG 12 [id number] 07:35:45Interface, External Ris In - 07/18/2019 7:35 AM CSTVentricular Rate 87 BPMAtrial Rate 87 BPMP-R Interval 136 msQRS Duration 72 msQ-T Interval 380 msQTC Calculation(Bazett) 457 msP [place] 68 degreesR [place] 17 degreesT [place] 65 degreesNormal sinus rhythmNormal ECGWhen compared with ECG of 19-MAR-2017 15:16,QT has shortenedConfirmed by MD BROCK, LAKSHMI ([id number]) on 07/18/2019 7:35:43 [facility] CenterBASI METABOLIC [id number] 06:56:00 Test Item Value Reference Range Interpretation [...] S NOT APPLICABLE FOR DIALYSIS PATIEN TS. [id number] 06:45:00 Test Item Value Reference Range Interpretation Comments PHOSPHORUS (BEAKER) (test code = 4.6 mg/dL 2.3-4.7 604) [id number] 06:45:00 Test Item Value Reference Range Interpretation Comments MAGNESIUM (BEAKER) (test code = 2.0 mg/dL 1.6-2.6 627) CBC W/PLT COUNT & AUTO [id number] 05:35:00 Test Item Value Reference Range Interpretation [...] PERCENT (BEAKER) (test code = 2801) PROTHROMBIN [id number] 05:24:00 Test Item Value Reference Range Interpretation [...] is2.5-3.5 for patients wiht mechanical heart valves.POCT-GLUCOSE [id number] 21:08:00 Test Item Value Reference Range Interpretation Comments POC-GLUCOSE METER 191 mg/dL 70-110 H : TESTED A T [facility] 6720 (Leeo) (test code = [facility] [place] [facility], 1538) [address]: Bullet Maker/Techni tammy ID = [id number] for Keith Quintero POCT-GLUCOSE [id number] 17:20:00 Test Item Value Reference Range Interpretation Comments POC-GLUCOSE METER 168 mg/dL 70-110 H : TESTED A T [facility] 6720 (BEAKER) (test code = [facility] [place] [facility], 1538) [address]: Bullet Maker/Techni tammy ID = [id number] for HU NT, MAVIS POCT-GLUCOSE [id number] 12:49:00 Test Item Value Reference Range Interpretation Comments POC-GLUCOSE METER 221 mg/dL 70-110 H : TESTED A T [facility] 6720 (BEAKER) (test code = [facility], 1538) [address]: Bullet Maker/Techni tammy ID = [id number] for HU NT, MAVIS Screen, [id number] 11:54:00 Test Item Value Reference Range Interpretation Comments Preg Test, Ur (test code = 2112-1) Negative [facility] CenterPREGNANCY SCREEN, [id number] 11:54:00 Test Item Value Reference Range Interpretation Comments TEST URINE (BEAKER) (test Negative code = 583) POCT-GLUCOSE [id number] 09:11:00 Test Item Value Reference Range Interpretation Comments POC-GLUCOSE METER 112 mg/dL 70-110 H : TESTED A T [facility] 6720 (BEAKER) (test code = [place], 1538) [address]: Bullet Maker/Techni tammy ID = [id number] for FAROOQ ARECHIGA, MAVIS BASIC METABOLIC [id number] 06:50:00 Test Item Value Reference Range Interpretation [...] S NOT APPLICABLE FOR DIALYSIS PATIEN TS. [id number] 06:38:00 Test Item Value Reference Range Interpretation Comments PHOSPHORUS (BEAKER) (test code = 3.9 mg/dL 2.3-4.7 604) [id number] 06:38:00 Test Item Value Reference Range Interpretation Comments MAGNESIUM (BEAKER) (test code = 1.9 mg/dL 1.6-2.6 627) PROTHROMBIN TIME/[id number] 06:12:00 Test Item Value Reference Range Interpretation [...] mechanical heart valves.CBC W/PLT COUNT & AUTO [id number] 06:06:00 Test Item Value Reference Range Interpretation [...] 0-1 PERCENT (BEAKER) (test code = 2801) [id number] 04:27:00 Test Item Value Reference Range Interpretation Comments RPR (test code = 47670-8) Nonreactive Nonreactive Lab Interpretation (test code = Normal 03173-4) [facility]00 Test Item Value Reference Range Interpretation Comments RPR SCREEN (BEAKER) (test code = Nonreactive Nonreactive 420) MR, MRA, BRAIN, WITHOUT [id number] 03:28:00Reason for exam:- >StrokeWhat is the patient's [...] 07/17/2019 03:28:33 MR, MRA, NECK, WITHOUT IV [id number] 03:28:00FINAL REPORT MR, BRAIN, WITHOUT CONTRAST, MR, [...] Verified Date/Time: 07/17/2019 03:28:33 MR, BRAIN, WITHOUT [id number] 03:28:00 Reason for exam:->StrokeWhat is the patient's [...] Date/Time: 07/17/2019 03:28:33 MR MRA head without [id number] 03:28:00 Interface, External Ris In - 07/17/2019 [...] Yg Ortiz MDReport Verified Date/Time: 07/17/2019 03:28:33 [facility] neck without [id number] 03:28:00Interface, External Ris In - 07/17/2019 4:57 [...] Yg Ortiz MDReport Verified Date/Time: 07/17/2019 03:28:33 [facility]MR brain without IV [id number] 03:28:00Interface, External Ris In - 07/17/2019 4:57 [...] Yg Ortiz MDReport Verified Date/Time: 07/17/2019 03:28:33 [facility] CenterPO[facility]UCOSE [id number] 21:16:00 Test Item Value Reference Range Interpretation Comments POC-GLUCOSE METER 143 mg/dL 70-110 H : TESTED A T [facility] 6720 (BEAKER) (test code = [facility] [place] [facility], 153) [address]: Bullet Maker/Techni tammy ID = [id number] for JANELL GEORGE POCT-GLUCOSE [id number] 17:33:00 Test Item Value Reference Range Interpretation Comments POC-GLUCOSE METER 108 mg/dL 70-110 : TESTED A T [facility] 6720 (BEAKER) (test code = [facility], 153) [address]: Bullet Maker/Techni tammy ID = [id number] for TAVON DUVALL POCT-GLUCOSE [id number] 17:25:00 Test Item Value Reference Range Interpretation Comments POC-GLUCOSE METER 155 mg/dL 70-110 H : TESTED A T [facility] 6720 (BEAKER) (test code = [facility], 153) [address]: Bullet Maker/Techni tammy ID = [id number] for SIMON CHO HEMODIALYSIS [id number] 17:23:31Tavon Mcduffie RN 07/16/2019 5:24 PMVerified HD [...] Lab Results Component Value Date HEPBSAG Nonreactive 07/16/2019[facility]HEPATITIS B SURFACE [id number] 14:30:00 Test Item Value Reference Range Interpretation Comments HEPATITIS B SURFACE ANTIGEN (2) Nonreactive Nonreactive (BEAKER) (test code = 2585) 2D Echo W/Doppler(CW/PW/Color)2019-07-16 14:11:04Ejection FractionSLEH ECHO HEARTLAB MKCKESSON CPACSInterface, External Ris In - 07/16/2019 2:11 PM C STTransthoracic Echocardiography Report (TTE) Demographics Patient Name GIGI CONROY Date of Study 07/16/2019 Gender Female Visit Number [id number] Race Unknown Room Number 7605 Number Date of 1975 Referring Arvin Ann Physician Age 43 year(s) Immersion 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 POCT-GLUCOSE [id number] 08:27:00 Test Item Value Reference Range Interpretation Comments POC-GLUCOSE METER 106 mg/dL 70-110 : TESTED A T [facility] 6720 (BEAKER) (test code = [facility] [place] [facility], 1538) [address]: Bullet Maker/Techni tammy ID = [id number] for HARRISON GENEVASIMON PENN POCT-GLUCOSE [id number] 07:46:00 Test Item Value Reference Range Interpretation Comments POC-GLUCOSE METER 171 mg/dL 70-110 H : TESTED A T [facility] 6720 (BEAKER) (test code [facility], = 1538) [address]: Bullet Maker/Techni tammy ID = [id number] for YASMINE VO RAD, CHEST, 1 VIEW, NON [id number] 07:36:00Reason for exam:- >baselineShould this be performed [...] valve. Low lung volumes. Signed: Chandu Chery MDRepmetropolitan saint louis psychiatric center Verified Date/Time: 07/16/2019 07:36:01 Reading Location: [address] Body Reading Room HEMOGLOBIN [id number] 06:42:00 Test Item Value Reference Range Interpretation Comments HEMOGLOBIN A1C (BEAKER) (test code = 9.5 % 4.3-6.1 H 368) BASIC METABOLIC [id number] 06:27:00 Test Item Value Reference Range Interpretation [...] DIALYSIS PATIEN TS. HIV-1 Antigen with HIV-1/2 [id number] 05:52:00 Test Item Value Reference Range Interpretation Comments HIV-1 Antigen with HIV 1&2 Nonreactive Nonreactive Antibody (test code = 14279-1) Lab Interpretation (test code = Normal 40915-2) [facility]-1 ANTIGEN WITH HIV-1/2 [id number] 05:52:00 Test Item Value Reference Range Interpretation Comments HIV-1 ANTIGEN WITH HIV 1\\T\\2 Nonreactive Nonreactive ANTIBODY (2) (BEAKER) (test code = 2586) POCT-GLUCOSE [id number] 05:38:00 Test Item Value Reference Range Interpretation Comments POC-GLUCOSE METER 420 mg/dL 70-110 HH : Notified RN/MD: TESTED (TAINA) (test code AT [facility] [address] = 1538) [facility], [facility] 30: Bullet Maker/Techni tammy ID = [id number] for YASMINE VO Vitamin B12 and [id number] 05:11:00 Test Item Value Reference Range Interpretation Comments Vitamin B12 (test code = 2132-9) 525 pg/mL 213-816 Folate (test code = 2284-8) 6.5 ng/mL >=7.0 L Lab Interpretation (test code = Abnormal 43006-2) [facility] HospitalTSH/FREE T4 IF [id number] 05:11:00 Test Item Value Reference Range Interpretation Comments THYROID STIMULATING HORMONE 0.87 uIU/mL 0.35-4.94 (BEAKER) (test code = 772) VITAMIN B12 AND [id number] 05:11:00 Test Item Value Reference Range Interpretation Comments VITAMIN B12 (BEAKER) (test code = 525 pg/mL 213-816 774) FOLATE (AKER) (test code = 362) 6.5 ng/mL >=7.0 L BASIC METABOLIC [id number] 04:57:00 Test Item Value Reference Range Interpretation [...] NOT APPLICABLE FOR DIALYSIS PATIEN TS. Lipid [id number] 04:47:00 Test Item Value Reference Range Interpretation Comments Triglycerides (test 100 mg/dL code = 2571-8) Cholesterol (test code 177 mg/dL = 2093-3) HDL (test code = 48 mg/dL 2084-9) LDL Calculated (test 109 mg/dL code = 08216-7) YAKELIN (test code = YAKELIN) Triglyceride Reference Range: Low Risk <150 Borderline 150-199 High Risk 200-499 Very High Risk >=500 Cholesterol Reference Range: Low Risk <200 Borderline 200-239 High Risk >240 HDL Cholesterol Reference Range: Low Risk >=60 High Risk <40 LDL Cholesterol Reference Range: Optimal <100 Near Optimal 100-129 Borderline 130-159 High 160-189 Very High >=190 [id number] 04:47:00 Test Item Value Reference Range Interpretation Comments PHOSPHORUS (BEAKER) (test code = 5.5 mg/dL 2.3-4.7 H 604) [id number] 04:47:00 Test Item Value Reference Range Interpretation Comments MAGNESIUM (BEAKER) (test code = 2.0 mg/dL 1.6-2.6 627) LIPID [id number] 04:47:00 Test Item Value Reference Range Interpretation [...] 130-159 High 160-189 Very High >=190HEPATIC FUNCTION [id number] 04:47:00 Test Item Value Reference Range Interpretation [...] = 99 U/L 6-55 H 347) PROTHROMBIN [id number] 04:11:00 Test Item Value Reference Range Interpretation [...] mechanical heart valves.CBC W/PLT COUNT & AUTO [id number] 04:03:00 Test Item Value Reference Range Interpretation [...] EOSINOPHILS ABSOLUTE COUNT 0.12 K/ L 0.04-0.36 ([facility]) (test code = 416) BASOPHILS ABSOLUTE COUNT ([facility]) 0.05 K/ L 0.01-0.08 (test code = 417) IMMATURE GRANULOCYTES-RELATIVE 0 % 0-1 PERCENT ([facility]) (test code = 2801) POCT-GLUCOSE [id number] 03:47:00 Test Item Value Reference Range Interpretation Comments POC-GLUCOSE METER > mg/dL 70-110 HH : Notified RN/MD: TESTED ([facility]) (test code = AT [facility] [address] [place] [address] 1538) [place] [address] 30: Bullet Maker/Techni tammy ID = [id number] for SYLVIA JONES FACTOR 5 LEIDEN PCR (THROMBOTIC RISK)2017-03-24 19:24:00 Test Item Value Reference Range Interpretation Comments FACTOR V LEIDEN Negative for the R506Q ([facility]) (test code = (Factor V Leiden) 718) mutation [id number] Martínez Wang MD ([facility]) (test code = (electronic signature) 3633) This test is a genotyping assay which [...] [facility], Section of Molecular Pathology. It has not been cleared or approved by the U.S. Food and Drug Administration (FDA), since FDA approval is not requ ired for clinical use of the test. Validation was done as required by the Clinical Laboratory Improvement Amendments of 1988.POCT-GLUCOSE [id number] 07:28:00 Test Item Value Reference Range Interpretation Comments POC-GLUCOSE METER 200 mg/dL 70-110 H TESTED AT [facility] 67[address] ([facility]) (test code = [facility] 1538) [address] POCT-GLUCOSE [id number] 21:18:00 Test Item Value Reference Range Interpretation Comments POC-GLUCOSE METER 211 mg/dL 70-110 H TESTED AT [facility] 6720 ([facility]) (test code = [facility] 1538) [address] PROTEIN, RANDOM [id number] 19:43:00 Test Item Value Reference Range Interpretation Comments PROTEIN, URINE (BEAKER) (test code 286 mg/dL 0-14 H = 1569) CREATININE, RANDOM [id number] 18:27:00 Test Item Value Reference Range Interpretation [...] Normal Hexagonal (BEAKER) (test code = Phospholipid 344097) [id number] Martínez Wang MD (BEAKER) (test code = (electronic 2610) signature) DRVV SCREEN RATIO 0.84 <1.20 (BEAKER) (test code = 2707) Effective 12/20/2013: Test Method ChangeDRVV Screen Ratio, DRVV 1/1 Screen Ratio, DRVV Confirm Ratio,DRVV Normalized Ratio Reference Range: <1.2Protime Reference Range ChangeNew: 11.7-14.7 Previous: 9.8-12.0PTT Reference Range ChangeNew: 22.5-36.0 Previous: 25.8-34.5URINE [id number] 11:40:00 Test Item Value Reference Range Interpretation Comments CULTURE (BEAKER) (test 20-29,000 col/mL skin code = 1095) lei POCT-GLUCOSE [id number] 08:33:00 Test Item Value Reference Range Interpretation Comments POC-GLUCOSE METER 293 mg/dL 70-110 H TESTED AT [facility] 67[address] (BEAKER) (test code = [place] [facility] 1538) [address] VITAMIN D, 21-[id number] 07:49:00 Test Item Value Reference Range Interpretation Comments VITAMIN D 25-OH (BEAKER) (test code = < ng/mL 13.0-47.8 L 2764) CBC W/PLT COUNT & AUTO [id number] 05:59:00 Test Item Value Reference Range Interpretation [...] (BEAKER) (test code = 2801) BASIC METABOLIC [id number] 05:38:00 Test Item Value Reference Range Interpretation [...] S NOT APPLICABLE FOR DIALYSIS PATIEN TS. [id number] 05:37:00 Test Item Value Reference Range Interpretation Comments PHOSPHORUS (BEAKER) (test code = 4.1 mg/dL 2.3-4.7 604) [id number] 05:37:00 Test Item Value Reference Range Interpretation Comments MAGNESIUM (BEAKER) (test code = 1.7 mg/dL 1.6-2.6 627) PTH, [id number] 05:34:00 Test Item Value Reference Range Interpretation Comments PARATHYROID HORMONE INTACT 57.2 pg/mL 8.5-72.5 (BEAKER) (test code = 577) Effective 07/04/2014: Reference Range ChangeNew: 8.5-72.5 Previous: 15.0-90.0 CARDIOLIPIN ANTIBODIES, IGG AND [id number] 22:36:00 Test Item Value Reference Range Interpretation Comments ANTICARDIOLIPIN IGG ANTIBODY (BEAKER) < GPL (test code = 712) ANTICARDIOLIPIN IGM ANTIBODY ([facility]) 2.8 MPL (test code = 713) Anticardiolipin IgG Result Interpretation:NEG: <20 GPL; U/mlPOS: >/=20 GPL; U/mlAnticardiolipin IgM Result Interpretation:NEG: <20 MPL; U/mlPOS: >/=20 MPL; U/mlPOCT-GLUCOSE [id number] 21:25:00 Test Item Value Reference Range Interpretation Comments POC-GLUCOSE METER 198 mg/dL 70-110 H TESTED AT [place] [address] ([facility]) (test code = [facility] 1538) [address] POCT-GLUCOSE [id number] 16:29:00 Test Item Value Reference Range Interpretation Comments POC-GLUCOSE METER 296 mg/dL 70-110 H TESTED AT [place] [address] ([facility]) (test code = [facility] 1538) [address] ANTI-NUCLEAR ANTIBODY (MARY)2017-03-18 15:30:00 Test Item Value Reference Range Interpretation Comments ANTI-NUCLEAR ANTIBODY (MARY) (BEAKER) Negative Negative (test code = 418) HEXAGONAL [id number] 13:21:00 Test Item Value Reference Range Interpretation Comments HEXAGONAL PHOSPHOLIPID (BEAKER) Negative (test code = 1790) POCT-GLUCOSE [id number] 12:15:00 Test Item Value Reference Range Interpretation Comments POC-GLUCOSE METER 140 mg/dL 70-110 H TESTED AT [place] [address] ([facility]) (test code = [facility] 1538) [address] PROTEIN C [id number] 11:44:00 Test Item Value Reference Range Interpretation Comments PROTEIN C ACTIVITY (BEAKER) (test 155.0 % 70.0-130.0 H code = 582) Effective 12/20/2013: Reference Range Change-Adult onlyNew: 70.0-130.0 Previous: 70.0-140.0See Protein C Antigen.ANTITHROMBIN [id number] 11:43:00 Test Item Value Reference Range Interpretation Comments ANTITHROMBIN III ACTIVITY (BEAKER) 87.0 % 80.0-120.0 (test code = 711) Effective 12/20/2013: Reference Range Change-Adult onlyNew: 80.0-120.0 Previous: 90.0-128.0POCT-GLUCOSE [id number] 08:17:00 Test Item Value Reference Range Interpretation Comments POC-GLUCOSE METER 107 mg/dL 70-110 TESTED AT [facility] 67[address] (BEAKER) (test code = [place] 1538) [address] BASIC METABOLIC [id number] 06:32:00 Test Item Value Reference Range Interpretation [...] PATIEN TS. CBC W/PLT COUNT & AUTO [id number] 05:56:00 Test Item Value Reference Range Interpretation [...] PERCENT (BEAKER) (test code = 2801) POCT-GLUCOSE [id number] 04:32:00 Test Item Value Reference Range Interpretation Comments POC-GLUCOSE METER 107 mg/dL 70-110 TESTED AT [facility] 67 [facility] (test code = [place] 1538) [address] POCT-GLUCOSE [id number] 22:21:00 Test Item Value Reference Range Interpretation Comments POC-GLUCOSE METER 118 mg/dL 70-110 H TESTED AT [facility] 6720 (BEAKER) (test code = [place] 1538) [address] POCT-GLUCOSE [id number] 21:22:00 Test Item Value Reference Range Interpretation Comments POC-GLUCOSE METER 52 mg/dL 70-110 L Notified R Jia REYNOSO/TESTED AT (BEAKER) (test code = [facility] 67[address] [facility] 1538) [place] [address] MICROALBUMIN, RANDOM [id number] 17:57:00 Test Item Value Reference Range Interpretation Comments MICROALBUMIN URINE (BEAKER) (test > mg/dL code = 1794) Reference Range: No NormalsURINALYSIS W/ [id number] 17:36:00 Test Item Value Reference Range Interpretation [...] 516) SOURCE(BEAKER) (test code = Urine, Voided 6915) SCREEN, [id number] 17:36:00 Test Item Value Reference Range Interpretation Comments TEST URINE (BEAKER) (test Negative code = 583) CREATININE, RANDOM [id number] 17:35:00 Test Item Value Reference Range Interpretation Comments CREATININE URINE (BEAKER) (test 33.9 mg/dL code = 375) Reference Range: No NormalsSODIUM, RANDOM [id number] 17:35:00 Test Item Value Reference Range Interpretation Comments SODIUM URINE ([facility]) (test code = 63 meq/L 243) Reference Range: No NormalsPOCT-GLUCOSE [id number] 17:34:00 Test Item Value Reference Range Interpretation Comments POC-GLUCOSE METER 118 mg/dL 70-110 H TESTED AT [place] [address] ([facility]) (test code = [place] [facility] 1538) [address] POCT-GLUCOSE [id number] 13:28:00 Test Item Value Reference Range Interpretation Comments POC-GLUCOSE METER 71 mg/dL 70-110 TESTED AT [place] [address] ([facility]) (test code = [facility] [place] [facility] [address] 1538) POCT-GLUCOSE [id number] 10:37:00 Test Item Value Reference Range Interpretation Comments POC-GLUCOSE METER 144 mg/dL 70-110 H TESTED AT [place] [address] ([facility]) (test code = [facility] [place] [facility] 1538) [address] POCT-GLUCOSE [id number] 07:18:00 Test Item Value Reference Range Interpretation Comments POC-GLUCOSE METER 60 mg/dL 70-110 L TESTED AT [place] [address] ([facility]) (test code = [facility] [place] [facility] [address] 1538) CBC W/PLT COUNT & AUTO [id number] 05:51:00 Test Item Value Reference Range Interpretation Comments WHITE BLOOD CELL COUNT (BEAKER) 11.4 K/ L 3.5-10.5 H (test code = 775) RED BLOOD CELL COUNT (AKER) 3.81 M/ L 3.93-5.22 L (test code [...] (BEAKER) (test code = 2801) BASIC METABOLIC [id number] 05:51:00 Test Item Value Reference Range Interpretation [...] NOT APPLICABLE FOR DIALYSIS PATIEN TS. POCT-GLUCOSE [id number] 21:41:00 Test Item Value Reference Range Interpretation Comments POC-GLUCOSE METER 287 mg/dL 70-110 H TESTED AT [facility] 6720 (BEAKER) (test code = [place] 1538) [address] BASIC METABOLIC [id number] 12:35:00 Test Item Value Reference Range Interpretation [...] report . CBC W/PLT COUNT & AUTO [id number] 04:54:00 Test Item Value Reference Range Interpretation [...] 0-1 PERCENT (BEAKER) (test code = 2801) [id number] 20:17:00 Test Item Value Reference Range Interpretation Comments RPR SCREEN (BEAKER) (test code = Nonreactive Nonreactive 420) POCT-GLUCOSE [id number] 18:09:00 Test Item Value Reference Range Interpretation Comments POC-GLUCOSE METER 215 mg/dL 70-110 H TESTED AT [facility] 6720 (BEAKER) (test code = [place] 1538) [address] CBC W/PLT COUNT & AUTO [id number] 11:54:00 Test Item Value Reference Range Interpretation [...] (BEAKER) (test code = Normal 762) SEDIMENTATION [id number] 10:27:00 Test Item Value Reference Range Interpretation Comments SEDIMENTATION RATE, ERYTHROCYTE 79 mm/HR 0-20 H (BEAKER) (test code = 766) HEMOGLOBIN [id number] 09:33:00 Test Item Value Reference Range Interpretation Comments HEMOGLOBIN A1C (BEAKER) (test code = 9.8 % 4.3-6.1 H 368) VITAMIN [id number] 09:14:00 Test Item Value Reference Range Interpretation Comments VITAMIN B12 (BEAKER) (test code = 1790 pg/mL 213-816 H 774) TSH/FREE T4 IF [id number] 09:14:00 Test Item Value Reference Range Interpretation Comments THYROID STIMULATING HORMONE 1.08 uIU/mL 0.35-4.94 (BEAKER) (test code = 772) BASIC METABOLIC [id number] 08:52:00 Test Item Value Reference Range Interpretation [...] DATA TO CALCULA TE ESTIMATED GFR. FastingLIPID [id number] 08:51:00 Test Item Value Reference Range Interpretation [...] High 160-189 Very High >=190 FastingHCG, QUANTITATIVE, [id number] 01:43:00 Test Item Value Reference Range Interpretation Comments GONADOTROPIN, CHORIONIC (HCG) QUANT < mIU/mL 0-10 (BEAKER) (test code = 649) Non- Females: <10 mIU/mL Females: Gestation Age Reference Range(mIU/mL) 0.2-1 Week 5-50 1-2 Weeks 50-500 2-3 Weeks 100-5,000 3-4Weeks 500-10,000 4-5 Weeks 1,000-50,000 5-6 Weeks 10,000-100,000 6-8 Weeks 15,000-200,000 2-3 Months 10,000-100,000COMPREHENSIVE METABOLIC [id number] 21:57:00 Test Item Value Reference Range Interpretation [...] 355) BLOOD UREA NITROGEN 21 mg/dL 7-21 (AKER) (test code = 354) CREATININE (BEAKER) 2.00 mg/dL 0.57-1.25 H (test code = 358) GLUCOSE RANDOM 285 mg/dL 70-105 H (AKER) (test code = 652) CALCIUM (BEAKER) 7.9 mg/dL 8.4-10.2 L (test code = 697) AST (SGOT) (BEAKER) 16 U/L 5-34 (test code = 353) ALT (SGPT) (BEAKER) 14 U/L 6-55 (test code = 347) EGFR ([facility]) (test mL/min/1.73 INSUFFIC IENT code = 1092) sq m CLINICAL DATA T O CALCULATE ESTIM ATED GFR. Unit CollectPOCT-GLUCOSE [id number] 21:50:00 Test Item Value Reference Range Interpretation Comments POC-GLUCOSE METER 278 mg/dL 70-110 H TESTED AT [facility] 6720 ([facility]) (test code = [place] 1538) [address]
[2020-07-05] MEDS ORDERED: NA CHLORIDE 0.9% 1,000 ML ONE (13:32)
[2020-07-05 14:01] LABS: Protime INR 0.99
--- NOTE | 2020-07-05 14:09 | RAD REPORT ---
EXAM DESCRIPTION: RAD - Chest Single View - 07/05/2020 2:03 pm CLINICAL HISTORY: syncope Chest pain. COMPARISON: Chest Single View dated 05/17/2020; Abdomen 1 View (KUB) dated 05/02/2020; Chest Single Vi ew dated 04/29/2020; Chest Single View dated 03/12/2020 FINDINGS: Portable technique limits examination quality. The lungs are grossly clear. The heart is normal in size. No displaced fractures. IMPRESSION: No acute intrathoracic process suspected.
[2020-07-05 14:15] LABS: ALT/SGPT 66 U/L (12-78); AST/SGOT 32 U/L (15-37); Albumin 2.7 g/dL (3.4-5.0); Alkaline Phosphatase 271 U/L (45-117); BUN Blood Urea Nitrogen 44 mg/dL (7-18); Bicarbonate 28 mmol/L (21-32); Bilirubin Direct 0.2 mg/dL (0-0.2); Bilirubin Total 0.4 mg/dL (0.2-1.0); Glucose Level 93 mg/dL (74-106); Magnesium 2.4 mg/dL (1.8-2.4); NT PRO-BNP 8203 pg/mL (<125); Potassium 3.9 mmol/L (3.5-5.1); Protein, Total 8.2 g/dL (6.4-8.2); Sodium Level 138 mmol/L (136-145); Troponin (Emerg Dept Use Only) < 0.02 ng/mL (0.0-0.045)
[2020-07-05 14:16] LABS: Basophils % 0.8 % (0-1.3); Hematocrit 33.6 % (36.0-45.0); Lymphocytes % 19.9 % (15.3-44.8); MPV 8.3 fL (7.6-11.3); RBC Red Blood Cell Count 3.59 M/uL (3.86-4.86)
--- NOTE | 2020-07-05 14:21 | RAD REPORT ---
EXAM DESCRIPTION: CT - Head Brain Wo Cont - 07/05/2020 1:52 pm CLINICAL HISTORY: syncope, vomiting, ams COMPARISON: Head Brain Wo Cont dated 02/29/2020; Head Brain Wo Cont dated 02/08/2020 TECHNIQUE: All CT scans are performed using dose optimization technique as appropriate and may inclu de automated exposure control or mA/KV adjustment according to patient size. FINDINGS: No intracranial hemorrhage, hydrocephalus or extra-axial fluid collection.Mild generalized brain atrophy is present with mild periventricular and deep white matter chronic microvascular ische sunshine changes.No areas of brain edema or evidence of midline shift. The paranasal sinuses and mastoids are clear. The calvarium is intact. Bilateral pthisis bulbi. IMPRESSION: No acute intracranial abnormality.
--- NOTE | 2020-07-05 14:47 | RAD REPORT ---
EXAM DESCRIPTION: CT - Chest Abd Pelvis Wo Con - 07/05/2020 1:52 pm CLINICAL HISTORY: Chest and abdomen pain. vomiting, syncope, lower back pain COMPARISON: Thorax Wo Con dated 02/01/2018 TECHNIQUE: A limited noncontrast study is submitted. All CT scans are performed using dose optimization technique as appropriate and may include automated exposure control or mA/KV adjustment according to patient size. FINDINGS: Mild linear subsegmental atelectasis is present in both lung bases posteriorly.No pleural or pericardial effusion.No intrathoracic adenopathy. The liver, spleen, pancreas, adrenal glands are within normal limits. Cholecystectomy clips. Atrophic kidneys are present bilaterally. No bowel obstruction, free air, free fluid or abscess. Normal appendix. No pathologic lymphadenopath y in the abdomen or pelvis. Moderate stool is retained in the rectum. 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 Fibroid uterus. IMPRESSION: No acute abnormality is detected.
[2020-07-05] MEDS ORDERED: ACETAMINOPHEN 500 MG TAB PO PRN (15:05)
[2020-07-05] MEDS ORDERED: ALPRAZOLAM 0.25 MG TABLET PO PRN (15:05)
--- NOTE | 2020-07-05 15:07 | EDPHYS ---
Physician Documentation [facility] Name: Archana Woo Age: 44 yrs Sex: Female : 1975 Arrival Date: 07/05/2020 Time: 12:33 Bed 25 Private MD: ED Physician Zelalem Brenner HPI: 07/05 13:20 This 44 yrs old Female presents to ER via Unassigned with complaints of jmm Syncope. 13:20 The patient has experienced syncope. Onset: The symptoms/episode began/occurred jmm acutely, just prior to arrival. Associated injury: The patient did not suffer any apparent associated injury. Associated signs and symptoms: Pertinent positives: vomiting. This is a 44 year old female with a history of ESRD that presents to the ED with complaints buttock pain after a syncopal episode which occurred just prior to arrival. Patient was most recently dialized yesterday. Family denies fever. Family states patient had multiple episodes of vomiting just prior. . 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 N/A - iw Historical: - Allergies: 14:08 No Known Allergies; jd3 - Home Meds: 14:08 calcitriol 0.25 mcg Oral cap 1 cap [Active]; docusate sodium 100 mg Oral cap 1 cap once jd3 daily [Active]; hydralazine 25 mg Oral tab 1 tab 4 times per day [Active]; Hydrocodone-Acetaminophen Oral [Active]; furosemide 80 mg Oral tab 1 tab 2 times per day [Active]; Lantus 100 unit/mL Sub-Q soln 100 unit/mL [Active]; metformin 500 mg Oral tab 1 tab 2 times per day [Active]; - PMHx: 14:08 BLIND; CVA; Depression; Diabetes - NIDDM; dialysis W \T\ F; GERD; Hyperlipidemia; jd3 Hypertension; left arm paralysis; neuropathy; THYROID CANCER; TIA; - Immunization history:: Adult Immunizations up to date. - Social history:: Smoking status: unknown. ROS: 13:20 Constitutional: Negative for fever, chills, and weight loss, Cardiovascular: Negative jmm for chest pain, palpitations, and edema, Respiratory: Negative for shortness of breath, cough, wheezing, and pleuritic chest pain. 13:20 Abdomen/GI: Positive for vomiting. 13:20 Neuro: Positive for syncope. 13:20 All other systems are negative. Exam: 13:20 Constitutional: This is a well developed, well nourished patient who is awake, alert, jmm and in no acute distress. Head/Face: atraumatic. Eyes: EOMI, no conjunctival erythema appreciated ENT: Moist Mucus Membranes Neck: Trachea midline, Supple Chest/axilla: Normal chest wall appearance and motion. Cardiovascular: Regular rate and rhythm. No edema appreciated Respiratory: Normal respirations, no respiratory distress appreciated 13:20 Abdomen/GI: Inspection: abdomen appears normal, Bowel sounds: normal, Palpation: abdomen is soft and non-tender, in all quadrants. 13:20 Neuro: Orientation: is normal, Mentation: is normal, Gait: unable to assess. 13:48 ECG was reviewed by the Attending Physician. [facility] Vital Signs: 13:20 BP 71 / 47; Pulse 60; Resp 17 S; Pulse Ox 95% on R/A; jd3 14:00 BP 118 / 74; Pulse 65; Resp 15 S; Pulse Ox 100% on R/A; jd3 14:40 BP 141 / 62; Pulse 72; Resp 13 S; Pulse Ox 100% on R/A; jd3 15:24 BP 136 / 67; Pulse 69; Resp 16 S; Pulse Ox 98% on R/A; jd3 16:05 BP 138 / 73; Pulse 69; Resp 18; Pulse Ox 99% on R/A; aj1 17:29 BP 113 / 61; Pulse 67; Resp 18; Pulse Ox 99% on R/A; aj1 MDM: 13:05 Patient medically screened. davion 15:05 Data reviewed: vital signs, nurses notes. Counseling: I had a detailed discussion with [facility] the patient and/or guardian regarding: the historical points, exam findings, and any diagnostic results supporting the discharge/admit diagnosis, lab results, radiology results, the need for further work-up and treatment in the hospital. ED course: I discussed the patient with Dr. Chan whom accepted admission. . 07/05 13:19 Order name: Basic Metabolic Panel; Complete Time: 14:36 [facility] 07/05 13:19 Order name: CBC with Diff; Complete Time: 14:36 [facility] 07/05 13:19 Order name: LFT's; Complete Time: 14:36 [facility] 07/05 13:19 Order name: Magnesium; Complete Time: 14:36 [facility] 07/05 13:19 Order name: NT PRO-BNP; Complete Time: 14:36 [facility] 07/05 13:19 Order name: PT-INR; Complete Time: 14:36 [facility] 07/05 13:19 Order name: Troponin (emerg Dept Use Only); Complete Time: 14:36 [facility] 07/05 13:19 Order name: Procalcitonin; Complete Time: 17:59 [facility] 07/05 13:19 Order name: Lactate; Complete Time: 14:50 [facility] 07/05 13:19 Order name: Blood Culture Adult (2) [facility] 07/05 13:29 Order name: Glucose, Ancillary Testing; Complete Time: 13:44 [facility] 07/05 15:10 Order name: Basic Metabolic Panel [facility] 07/05 15:10 Order name: Basic Metabolic Panel [facility] 07/05 15:10 Order name: CBC with Automated Diff [facility] 07/05 13:19 Order name: XRAY Chest (1 view); Complete Time: 14:36 [facility] 07/05 13:19 Order name: EKG; Complete Time: 13:20 [facility] 07/05 13:19 Order name: CT Head Brain wo Cont; Complete Time: 14:36 [facility] 07/05 13:19 Order name: CT Chest Abdomen Pelvis W/O Contrast; Complete Time: 14:55 [facility] 07/05 15:10 Order name: CONS Physician Consult [facility] 07/05 15:10 Order name: Heart Healthy [facility] 07/05 15:10 Order name: Echo with Doppler [facility] 07/05 15:10 Order name: EKG Electrocardiogram [facility] 07/05 15:10 Order name: EKG Electrocardiogram [facility] 07/05 15:10 Order name: CBC with Automated Diff [facility] 07/05 15:10 Order name: Lipid Profile [facility] 07/05 15:10 Order name: Lipid Profile [facility] 07/05 15:10 Order name: Troponin I [facility] 07/05 15:10 Order name: Troponin I [facility] 07/05 15:10 Order name: Troponin I [facility] 07/05 13:19 Order name: Cardiac monitoring; Complete Time: 13:36 [facility] 07/05 13:19 Order name: EKG - Nurse/Tech; Complete Time: 13:36 [facility] 07/05 13:19 Order name: IV Saline Lock; Complete Time: 13:36 [facility] 07/05 13: Order name: O2 Per Protocol; Complete Time: 13:27 [facility] 07/05 13: Order name: O2 Sat Monitoring; Complete Time: : [facility] EC:48 Rate is 63 beats/min. Rhythm is regular. QRS [place] is Normal. IN interval is normal. QRS jmm interval is normal. QT interval is normal. No Q waves. T waves are Flattened in leads I, V1. No ST changes noted. Reviewed by me. Administered Medications: : Drug: NS 0.9% 1000 ml Route: IV; Rate: 1 bolus; Site: right forearm; jd3 15:00 Follow up: IV Status: Completed infusion iw Disposition: 07/06 06:05 Co-signature as Attending Physician, Zelalem Brenner MD I agree with the assessment and davion plan of care. Disposition: 07/05/20 15:06 Hospitalization ordered by Everett Chan for Observation. Preliminary diagnosis is Syncope and collapse. - Bed requested for Telemetry/MedSurg (observation). - Status is Observation. iw - Condition is Stable. - Problem is new. - Symptoms have improved. Signatures: Dispatcher [employer] EDMaru Figueroa RN RN dw Anderson, Corey, MD MD cha Mickail, Joel, PA PA [facility] Margarita Wheatley RN RN iw Davies, Jonathon, RN RN jd3 Corrections: (The following items were deleted from the chart) 07/05 16:53 15:06 Hospitalization Ordered by Everett Chan MD for Observation. Preliminary diagnosis is Syncope and collapse. Bed requested for Telemetry/MedSurg (observation). Status is Observation. Condition is Stable. Problem is new. Symptoms have improved. [facility] 18:11 16:53 07/05/2020 15:06 Hospitalization Ordered by Everett Chan MD for Observation. iw Preliminary diagnosis is Syncope and collapse. Bed requested for Telemetry/MedSurg (observation). Status is Observation. Condition is Stable. Problem is new. Symptoms have improved. dw
--- NOTE | 2020-07-05 15:07 | ER ---
Nurse's Notes [facility] Name: Archana Woo Age: 44 yrs Sex: Female : 1975 Arrival Date: 07/05/2020 Time: 12:33 Bed 25 Private MD: Diagnosis: Syncope and collapse Presentation: 07/05 13:36 Acuity: TARUN 2 jd3 14:04 Chief complaint: Friend and/or Co-Worker states: "She was on the way to wound healing jd3 when she passed out.". Coronavirus screen: At this time, the client does not indicate any symptoms associated with coronavirus-19. Ebola Screen: Patient negative for fever greater than or equal to 101.5 degrees Fahrenheit, and additional compatible Ebola Virus Disease symptoms. Initial Sepsis Screen: Does the patient meet any 2 criteria? No. Patient's initial sepsis screen is negative. Does the patient have a suspected source of infection? No. Patient's initial sepsis screen is negative. Risk Assessment: Do you want to hurt yourself or someone else? Patient reports no desire to harm self or others. Onset of symptoms was July 05, 2020. 14:04 Method Of Arrival: Wheelchair jd3 DOBBY LOOM FIXER: 17:51 LMP N/A - iw Historical: - Allergies: 14:08 No Known Allergies; jd3 - Home Meds: 14:08 calcitriol 0.25 mcg Oral cap 1 cap [Active]; docusate sodium 100 mg Oral cap 1 cap once jd3 daily [Active]; hydralazine 25 mg Oral tab 1 tab 4 times per day [Active]; Hydrocodone-Acetaminophen Oral [Active]; furosemide 80 mg Oral tab 1 tab 2 times per day [Active]; Lantus 100 unit/mL Sub-Q soln 100 unit/mL [Active]; metformin 500 mg Oral tab 1 tab 2 times per day [Active]; - PMHx: 14:08 BLIND; CVA; Depression; Diabetes - NIDDM; dialysis W \\T\\ F; GERD; Hyperlipidemia; jd3 Hypertension; left arm paralysis; neuropathy; THYROID CANCER; TIA; - Immunization history:: Adult Immunizations up to date. - Social history:: Smoking status: unknown. Screenin:03 Abuse screen: Denies threats or abuse. Nutritional screening: No deficits noted. jd3 Tuberculosis screening: No symptoms or risk factors identified. Fall Risk Ambulatory Aid- None/Bed Rest/Nurse Assist (0 pts). Gait- Normal/Bed Rest/Wheelchair (0 pts) Mental Status- Oriented to own ability (0 pts). Total Lr Fall Scale indicates No Risk (0-24 pts). Assessment: 14:01 General: Appears in no apparent distress. uncomfortable, Behavior is cooperative, jd3 appropriate for age. Pain: Complains of pain in abdomen and neck Quality of pain is described as aching, tender. Neuro: Level of Consciousness is awake, alert, obeys commands, Oriented to person, place, time, situation, Reports a syncopal episode. Cardiovascular: Denies chest pain, Capillary refill < 3 seconds Patient's skin is warm and dry. Rhythm is regular. Respiratory: Airway is patent Respiratory effort is even, unlabored, Respiratory pattern is regular, symmetrical, Denies cough, shortness of breath. GI: No signs and/or symptoms were reported involving the gastrointestinal system. : No signs and/or symptoms were reported regarding the genitourinary system. EENT: No signs and/or symptoms were reported regarding the EENT system. Derm: Skin is intact, Skin is dry, Skin is normal, Skin temperature is warm. Musculoskeletal: Circulation, motion, and sensation intact. Range of motion: intact in all extremities. 14:40 Reassessment: No changes from previously documented assessment. Patient and/or family jd3 updated on plan of care and expected duration. Pain level reassessed. Patient is alert, oriented x 3, equal unlabored respirations, skin warm/dry/pink. 15:24 Reassessment: Patient appears in no apparent distress at this time. Patient and/or jd3 family updated on plan of care and expected duration. Pain level reassessed. Patient is alert, oriented x 3, equal unlabored respirations, skin warm/dry/pink. 16:02 Reassessment: No changes from previously documented assessment. General: Appears in no aj1 apparent distress. comfortable, Behavior is calm, cooperative, appropriate for age. Pain: Complains of pain in abdomen. Neuro: Level of Consciousness is awake, alert, obeys commands, Oriented to person, place, time, situation. Cardiovascular: Patient's skin is warm and dry. Respiratory: Airway is patent Respiratory effort is even, unlabored, Respiratory pattern is regular, symmetrical. GI: Abdomen is non-distended, Bowel sounds present X 4 quads. Abd is soft X 4 quads Reports lower abdominal pain, upper abdominal pain. : No signs and/or symptoms were reported regarding the genitourinary system. Derm: No signs and/or symptoms reported regarding the dermatologic system. Skin is pink, warm \\T\\ dry. normal. Musculoskeletal: No signs and/or symptoms reported regarding the musculoskeletal system. Circulation, motion, and sensation intact. 17:05 Reassessment: Patient appears in no apparent distress at this time. No changes from aj1 previously documented assessment. Patient and/or family updated on plan of care and expected duration. Pain level reassessed. Patient is alert, oriented x 3, equal unlabored respirations, skin warm/dry/pink. Vital Signs: 13:20 BP 71 / 47; Pulse 60; Resp 17 S; Pulse Ox 95% on R/A; jd3 14:00 BP 118 / 74; Pulse 65; Resp 15 S; Pulse Ox 100% on R/A; jd3 14:40 BP 141 / 62; Pulse 72; Resp 13 S; Pulse Ox 100% on R/A; jd3 15:24 BP 136 / 67; Pulse 69; Resp 16 S; Pulse Ox 98% on R/A; jd3 16:05 BP 138 / 73; Pulse 69; Resp 18; Pulse Ox 99% on R/A; aj1 17:29 BP 113 / 61; Pulse 67; Resp 18; Pulse Ox 99% on R/A; aj1 ED Course: 12:33 Patient arrived in ED. ag5 13:00 Initial lab(s) drawn, by me, by ED staff, sent to lab. Inserted saline lock: 22 gauge iw in right forearm, using aseptic technique. 13:03 Magdy Pedraza PA is PHCP. jmm 13:03 Zelalem Brenner MD is Attending Physician. jmm 13:18 Jaspal Lucero RN is Primary Nurse. jd3 13:36 Triage completed. jd3 13:53 CT Head Brain wo Cont In Process Unspecified. EDMS 13:53 CT Chest Abdomen Pelvis W/O Contrast In Process Unspecified. EDMS 14:03 XRAY Chest (1 view) In Process Unspecified. EDMS 14:03 Patient has correct armband on for positive identification. Bed in low position. Call jd3 light in reach. Side rails up X2. Adult w/ patient. monitor car operator on. Pulse ox on. NIBP on. 14:08 Arm band placed on. EKG completed in triage. Results shown to . jd3 15:06 Everett Chan MD is Hospitalizing Provider. lisa 17:50 No provider procedures requiring assistance completed. Patient admitted, IV remains in iw place. Administered Medications: 13:26 Drug: NS 0.9% 1000 ml Route: IV; Rate: 1 bolus; Site: right forearm; jd3 15:00 Follow up: IV Status: Completed infusion iw Outcome: 15:06 Decision to Hospitalize by Provider. lisa 17:51 Admitted to Med/surg accompanied by tech, via stretcher, room 413, Report called to chani Tristan RN 17:51 Condition: good 17:51 Discharge instructions given to patient, Instructed on the need for admit, Demonstrated understanding of instructions. 18:11 Patient left the ED. Signatures: Dispatcher [employer] EDEmerald Harris RN RN aj1 Magdy Pedraza PA PA jmm Williams, Irene, RN Jaspal Victoria RN RN jYash Carrizales ag5
[2020-07-05 18:28] VITALS: BMI 23.0
[2020-07-05] MEDS: MORPHINE 4 MG/ML SYR IV PRN (18:42)
[2020-07-05] MEDS: METOPROLOL TAR 25 MG TAB PO SCH (21:00)
[2020-07-06] MEDS: MORPHINE 4 MG/ML SYR IV PRN (01:45)
[2020-07-06 06:08] LABS: Absolute Lymphocytes (CBC) 1.6 K/uL (0.7-4.9); Basophils % 0.5 % (0-1.3); Hematocrit 34.7 % (36.0-45.0); Lymphocytes % 14.2 % (15.3-44.8); MPV 8.7 fL (7.6-11.3); RBC Red Blood Cell Count 3.68 M/uL (3.86-4.86)
--- NOTE | 2020-07-06 06:24 | EKG ---
Test Date: 2020-07-05 Test Time: 13:32:21 Supervisor Assembly Room: MARISBAEL MEASUREMENT RESULTS: Intervals: Rate: 63 NH: 148 QRSD: 90 QT: 476 QTc: 487 [place]: P: 76 NH: 148 QRS: 35 T: 93 INTERPRETIVE STATEMENTS: Normal sinus rhythm Possible Left atrial enlargement Cannot rule out Anterior infarct, age undetermined Abnormal ECG Compared to ECG 04/29/2020 13:28:29 Myocardial infarct finding now present T-wave abnormality no longer present Prolonged QT interval no longer present Electronically Signed On 07-06-20 06:22:39 PODOPEDIATRICIAN by Elder Tejeda
[2020-07-06 06:32] LABS: BUN Blood Urea Nitrogen 64 mg/dL (7-18); Bicarbonate 26 mmol/L (21-32); Glucose Level 403 mg/dL (74-106); Sodium Level 133 mmol/L (136-145); Troponin I < 0.02 ng/mL (0.0-0.045)
[2020-07-06 06:36] LABS: Potassium 6.1 mmol/L (3.5-5.1)
[2020-07-06] MEDS ORDERED: SOD POLYSTYREN SUL 15 GM/60 ML UCUP PO ONE (07:10)
[2020-07-06] MEDS ORDERED: INSULIN -REGULAR HUMAN 50 UNIT/0.5 ML ML SQ ONE ×2 (07:10→08:37)
--- NOTE | 2020-07-06 08:30 | P.HP ---
Certification for Inpatient Patient admitted to: Observation With expected LOS: <2 Midnights Patient will require the following post-hospital care: None Practitioner: I am a practitioner with admitting privileges, knowledge of patient current condition, hospital course, and medical plan of care. Services: Services provided to patient in accordance with Admission requirements found in Title 42 Section 412.3 of the Code of Federal Regulations Patient History Date of Service: 07/05/20 Reason for admission: Chest pain rule out acute coronary syndrome History of Present Illness: Patient is a 44-year-old female who came to the hospital with chest discomfort. Pain was in the sternal region. She was at dialysis and she got lightheaded and she felt faint. She started having some chest discomfort after that. In the emergency room her workup was essentially unremarkable. She had a CT of the brain that did not reveal any abnormalities. She had lab workup which show some chronic renal insufficiency. Otherwise patient with no new complaints. She will be admitted to the hospital to be ruled out for acute coronary syndrome. Allergies No Known Allergies Allergy (Verified 04/11/19 22:08) Home Medications: Aspirin 81 mg PO DAILY 12/23/19 Gabapentin 100 mg PO M,W,F 12/23/19 Sertraline [Zoloft*] 100 mg PO DAILY 12/23/19 Clopidogrel Bisulfate [Plavix*] 75 mg PO DAILY #30 tablet 12/26/19 Folic Acid 1 mg PO DAILY #30 tablet 12/26/19 Atorvastatin Calcium [Lipitor] 20 mg PO BEDTIME 02/09/20 Calcium Carbonate [Tums Regular*] 2 tab PO TIDWM 06/26/20 Famotidine [Pepcid] 20 mg PO DAILY 06/26/20 Fenofibrate [Tricor] 48 mg PO DAILY 06/26/20 Furosemide [Lasix] 40 mg PO BID 06/26/20 Hydroxyzine HCl [Atarax] 10 mg PO TID PRN 06/26/20 Insulin Glargine,Hum.rec.anlog [Yanick Arroyo] 20 unit SQ BEDTIME 06/26/20 Insulin Lispro [Humalog] 15 unit SQ AC 06/26/20 Levothyroxine Sodium 150 mcg PO DAILY 06/26/20 Lisinopril [Zestril] 20 mg PO DAILY 06/26/20 Magnesium Oxide 400 mg PO DAILY 06/26/20 Metoclopramide HCl 5 mg PO DAILY 06/26/20 Multivitamin 1 each PO DAILY 06/26/20 PARoxetine HCL [Paroxetine HCl] 40 mg PO DAILY 06/26/20 Sevelamer Carbonate [Renvela*] 800 mg PO TIDWM 06/26/20 Tramadol HCl [Ultram] 50 mg PO DAILY PRN 06/26/20 Zinc Oxide/Menthol/Calamine [Lantiseptic Ointment] 113 gm TP DAILY PRN 06/26/20 - Past Medical/Surgical History Has patient received pneumonia vaccine in the past: Yes Diabetic: Yes -: DM -: HTN -: Blindness -: ESRD -: Hypothyroidism -: Depression -: Neuropathy -: GERD -: ESRD -: hyperlipidemia -: CVA x3 -: Cholecystectomy -: Thyroidectomy -: Multiple eye surgeries -: -: HD graph left arm -: right great toe amputation Psychosocial/ Personal History: The patient is . She has 1 child. She is disabled. - Family History Father Medical History: Heart disease, Hypertension, Other (see notes) Notes: thyroid problems Mother Medical History: Diabetes, Kidney disease - Social History Smoking Status: Current some day smoker Alcohol use: No CD- Drugs: No Caffeine use: No Place of Residence: Home Review of Systems 10-point ROS is otherwise unremarkable Physical Examination - Vital Signs Temperature: 97.9 F Blood Pressure: 148/66 Pulse: 70 Respirations: 16 Pulse Ox (%): 97 - Physical Exam General: Alert, In no apparent distress, Oriented x3 HEENT: Atraumatic, PERRLA, Mucous membr. moist/pink, EOMI, Sclerae nonicteric Neck: Supple, 2+ carotid pulse no bruit, No LAD, Without JVD or thyroid abnormality Respiratory: Clear to auscultation bilaterally, Normal air movement Cardiovascular: Regular rate/rhythm, Normal S1 S2, No murmurs Gastrointestinal: Normal bowel sounds, Soft and benign, Non-distended, No tenderness Musculoskeletal: No clubbing, No swelling, No tenderness Integumentary: No rashes Neurological: Normal gait, Normal speech, Normal strength at 5/5 x4 extr, Normal tone, Sensation intact, Cranial nerves 3-12 intact, Normal affect Lymphatics: No axilla or inguinal lymphadenopathy - Studies Laboratory Data (last 24 hrs) 07/05/20 13:47: WBC 10.0, Hgb 11.1 L, Hct 33.6 L, Plt Count 306 07/05/20 13:24: PT 11.7, INR 0.99 07/05/20 13:24: Sodium 138, Potassium 3.9, BUN 44 H, Creatinine 5.30 H*, Glucose 93, Magnesium 2.4, Total Bilirubin 0.4, AST 32, ALT 66, Alkaline Phosphatase 271 H Assessment & Plan - Problems (Diagnosis) (1) Chest pain, rule out acute myocardial infarction Current Visit: Yes Status: Acute (2) Costochondritis Onset Date: 12/22/17 Current Visit: No Status: Acute (3) End-stage renal disease on hemodialysis Current Visit: No Status: Acute (4) History of CVA (cerebrovascular accident) Current Visit: No Status: Acute (5) TIA (transient ischemic attack) Onset Date: 08/06/17 Current Visit: No Status: Acute (6) Diabetes mellitus Onset Date: 03/03/17 Current Visit: No Status: Chronic (7) Hypertension Onset Date: 03/03/17 Current Visit: No Status: Chronic Qualifiers: (8) Tobacco abuse Onset Date: 03/03/17 Current Visit: No Status: Chronic (9) Syncope and collapse Current Visit: No Status: Resolved - Plan 1. Serial troponins and EKG 2. Cardiology consultation and nephrology consultation for hemodialysis 3. Review EKG and cardiac troponins 4. Anti-platelet therapy, anti coagulation, beta-tierney, statin, and O2 as needed 5. IV morphine for pain 6. Nitro p.r.n. Discharge Plan: Home Plan to discharge in: 24 Hours - Advance Directives Does patient have a Living Will: No Does patient have a Durable POA for Healthcare: Yes - Code Status/Comfort Care Code Status Assessed: Yes Code Status: Full Code Critical Care: No Time Spent Managing PTS Care (In Minutes): 40
[2020-07-06] MEDS ORDERED: INSULIN GLARGINE HUM REC ANLOG 10 UNIT SQ SCH (08:34)
[2020-07-06] MEDS ORDERED: GLUCAGON 1 MG/VIAL IM PRN (08:36)
[2020-07-06] MEDS ORDERED: D50W 25 GM/50 ML SYRINGE IV PRN (08:36)
[2020-07-06] MEDS ORDERED: INSULIN GLARGINE 100 UNITS/ML SQ ONE (08:36)
[2020-07-06] MEDS: METOPROLOL TAR 25 MG TAB PO SCH (08:40)
[2020-07-06] MEDS ORDERED: lisinopriL 10 MG TAB PO SCH (09:00)
[2020-07-06] MEDS ORDERED: ENOXAPARIN 30 MG/0.3 ML SQ SCH (09:00)
[2020-07-06] MEDS ORDERED: ASPIRIN 325 MG TAB PO SCH (09:00)
[2020-07-06] MEDS ORDERED: ASPIRIN EC 81 MG TAB PO SCH (09:00)
--- NOTE | 2020-07-06 10:23 | P.CNS ---
Date of Consult: 07/06/20 Reason for Consult: ESRD , hyperkalemia Chief Complaint: Chest pain rule out acute coronary syndrome History of Present Illness: A 44-year-old female who has a history of ESRD on HD MWF , stroke, diabetic legaly blind and HTN Pt presented for chest pain pain is retosetranl , non radiating , no SOB or palpitation now pt stated her pain is resolved, but she is complaining of neck pain Review of Systems: Head and Neck: neck pain , legally blind GI: No nausea, no vomiting. : No polyuria, no dysuria, no hematuria. Respiratory: No shortness of breath. Cardiovascular: No chest pain. Endocrine: No polydipsia. Skin: No rash. Neuro: Has neuropathy. Musculoskeletal: chest pain resolved, now with neck pain Physical exam general: AAOX3, NAD , blind Neck; Supple, No elevated JVD hear: RRR, normal S1,2 no murmur or rub Chest: CTAB, no rlaes or wheezes Abdomen: Soft , Nt Extremities: trace A/P End-stage renal disease on HD MWF HD today renal dose meds chest pain resolved trop wnl Anemia of chronic disease no need for epogen HTN elevated will improve with HD DM as per primary team hyperkalemia HD today total time spent 35min Allergies No Known Allergies Allergy (Verified 04/11/19 22:08) Home Medications: Aspirin 81 mg PO DAILY 12/23/19 Gabapentin 100 mg PO M,W,F 12/23/19 Sertraline [Zoloft*] 100 mg PO DAILY 12/23/19 Clopidogrel Bisulfate [Plavix*] 75 mg PO DAILY #30 tablet 12/26/19 Folic Acid 1 mg PO DAILY #30 tablet 12/26/19 Atorvastatin Calcium [Lipitor] 20 mg PO BEDTIME 02/09/20 Calcium Carbonate [Tums Regular*] 2 tab PO TIDWM 06/26/20 Famotidine [Pepcid*] 20 mg PO DAILY 06/26/20 Fenofibrate [Tricor*] 48 mg PO DAILY 06/26/20 Furosemide [Lasix*] 40 mg PO BID 06/26/20 Hydroxyzine HCl [Atarax] 10 mg PO TID PRN 06/26/20 Insulin Glargine,Hum.rec.anlog [Toujeo Max Solostar] 20 unit SQ BEDTIME 06/26/20 Insulin Lispro [Humalog] 15 unit SQ AC 06/26/20 Levothyroxine Sodium 150 mcg PO DAILY 06/26/20 Lisinopril [Zestril] 20 mg PO DAILY 06/26/20 Magnesium Oxide 400 mg PO DAILY 06/26/20 Metoclopramide HCl 5 mg PO DAILY 06/26/20 Multivitamin 1 each PO DAILY 06/26/20 PARoxetine HCL [Paroxetine HCl] 40 mg PO DAILY 06/26/20 Sevelamer Carbonate [Renvela*] 800 mg PO TIDWM 06/26/20 Tramadol HCl [Ultram] 50 mg PO DAILY PRN 06/26/20 Zinc Oxide/Menthol/Calamine [Lantiseptic Multi-Purpose Oint] 113 gm TP DAILY PRN 06/26/20 - Past Medical/Surgical History Diabetic: Yes -: DM -: HTN -: Blindness -: ESRD -: Hypothyroidism -: Depression -: Neuropathy -: GERD -: ESRD -: hyperlipidemia -: CVA x3 -: Cholecystectomy -: Thyroidectomy -: Multiple eye surgeries -: -: HD graph left arm -: right great toe amputation Psychosocial/ Personal History: The patient is . She has 1 child. She is disabled. - Family History Father Medical History: Heart disease, Hypertension, Other (see notes) Notes: thyroid problems Mother Medical History: Diabetes, Kidney disease - Social History Smoking Status: Unknown if ever smoked Alcohol use: No CD- Drugs: No Caffeine use: No Place of Residence: Home Physical Examination Temp Pulse Resp BP Pulse Ox 97.9 F 73 16 184/79 H 97 07/06/20 08:39 07/06/20 08:42 07/06/20 08:39 07/06/20 08:42 07/06/20 08:39 Laboratory Data (last 24 hrs) 07/05/20 13:47: WBC 10.0, Hgb 11.1 L, Hct 33.6 L, Plt Count 306 07/05/20 13:24: PT 11.7, INR 0.99 07/05/20 13:24: Sodium 138, Potassium 3.9, BUN 44 H, Creatinine 5.30 H*, Glucose 93, Magnesium 2.4, Total Bilirubin 0.4, AST 32, ALT 66, Alkaline Phosphatase 271 H
[2020-07-06] MEDS: ALBUMIN HUMAN 25% 50 ML IV ONE ×2 (12:08→12:15)
[2020-07-06 16:02] LABS: Potassium 3.3 mmol/L (3.5-5.1)
[2020-07-06 17:37] VITALS: BP 153/68; TEMP 96.8
[2020-07-06 18:36] VITALS: O2SAT 100
--- NOTE | 2020-07-07 10:05 | EKG ---
Test Date: 2020-07-06 Test Time: 08:58:48 Director Of Cath Lab: ANITA MEASUREMENT RESULTS: Intervals: Rate: 72 DC: 152 QRSD: 80 QT: 418 QTc: 457 Latty: P: 58 DC: 152 QRS: 5 T: 53 INTERPRETIVE STATEMENTS: Normal sinus rhythm Normal ECG Compared to ECG 07/05/2020 13:32:21 Myocardial infarct finding no longer present Electronically Signed On 07-07-20 10:03:38 TECHNICAL SPECIALIST [employer] by Elder Tejeda
--- NOTE | 2020-07-09 08:46 | ECHO ---
HEIGHT: 5 ft 4 in WEIGHT: 134 lb 0 oz DATE OF STUDY: 07/06/[address]: Everett Chan MD 2-DIMENSIONAL: YES M.MODE: YES DOPPLER: YES COLOR FLOW: YES TDS: PORTABLE: DEFINITY: BUBBLE STUDY: DIAGNOSIS: CHEST PAIN, RULE OUT ACUTE CORNARY SYNDROME CARDIAC HISTORY: CATHERIZATION: NO SURGERY: NO PROSTHETIC VALVE: NO PACEMAKER: NO MEASUREMENTS (cm) DIASTOLIC (NORMALS) SYSTOLIC (NORMALS) IVSd (0.6-1.2) LA Diam (1.9-4.0) LVEF 55-60% LVIDd (3.5-5.7) LVIDs (2.0-3.5) %FS % LVPWd (0.6-1.2) Ao Diam (2.0-3.7) 2 DIMENSIONAL ASSESSMENT: RIGHT ATRIUM: NORMAL LEFT ATRIUM: NORMAL RIGHT VENTRICLE: NORMAL LEFT VENTRICLE: NORMAL TRICUSPID VALVE: NORMAL MITRAL VALVE: MITRAL ANNULAR CALCIFICATION PULMONIC VALVE: NORMAL AORTIC VALVE: NORMAL PERICARDIAL EFFUSION: NONE AORTIC ROOT: NORMAL LEFT VENTRICULAR WALL MOTION: NORMAL DOPPLER/COLOR FLOW: NORMAL COMMENTS: MITRAL ANNULAR CALCIFICATION. NORMAL LEFT VENTRICULAR SIZE AND FUNCTION. NO WALL MOTION ABNORMALITY. NO EFFUSION. TECHNOLOGIST: JENNIFER SINGER
--- NOTE | 2020-07-10 04:48 | P.DS ---
Discharge Date: 07/06/20 Disposition: DC HOME/HOME HEALTH CARE Discharge Condition: GOOD Reason for Admission: Chest pain rule out acute coronary syndrome Consultations: Nephrology - Problems (1) Chest pain, rule out acute myocardial infarction Status: Acute (2) Costochondritis Onset Date: 12/22/17 Status: Acute (3) End-stage renal disease on hemodialysis Status: Acute (4) History of CVA (cerebrovascular accident) Status: Acute (5) TIA (transient ischemic attack) Onset Date: 08/06/17 Status: Acute (6) Diabetes mellitus Onset Date: 03/03/17 Status: Chronic (7) Hypertension Onset Date: 03/03/17 Status: Chronic Qualifiers: (8) Tobacco abuse Onset Date: 03/03/17 Status: Chronic (9) Syncope and collapse Status: Resolved Brief History of Present Illness: Patient is a 44-year-old female who came to the hospital with chest discomfort. Pain was in the sternal region. She was at dialysis and she got lightheaded and she felt faint. She started having some chest discomfort after that. In the emergency room her workup was essentially unremarkable. She had a CT of the brain that did not reveal any abnormalities. She had lab workup which show some chronic renal insufficiency. Otherwise patient with no new complaints. She will be admitted to the hospital to be ruled out for acute coronary syndrome. Hospital Course: Patient is doing well during the hospitalization. Patient's chest pain is much better. At this time, patient is stable to discharge home with outpatient follow up. Vital Signs/Physical Exam: Temp Pulse Resp BP Pulse Ox 96.8 F 66 16 153/68 H 100 07/06/20 16:00 07/06/20 16:00 07/06/20 16:00 07/06/20 16:00 07/06/20 16:00 General: Alert, In no apparent distress, Oriented x3 Laboratory Data at Discharge: WBC 11.3 K/uL (4.3-10.9) H 07/06/20 05:07 Hgb 11.4 g/dL (12.0-15.0) L 07/06/20 05:07 Hct 34.7 % (36.0-45.0) L 07/06/20 05:07 Plt Count 282 K/uL (152-406) 07/06/20 05:07 PT 11.7 SECONDS (9.5-12.5) 07/05/20 13:24 INR 0.99 07/05/20 13:24 Sodium 139 mmol/L (136-145) 07/06/20 15:30 Potassium 3.3 mmol/L (3.5-5.1) L 07/06/20 15:30 BUN 23 mg/dL (7-18) H D 07/06/20 15:30 Creatinine 2.57 mg/dL (0.55-1.3) H D 07/06/20 15:30 Glucose 107 mg/dL (74-106) H 07/06/20 15:30 Magnesium 2.4 mg/dL (1.8-2.4) 07/05/20 13:24 Total Bilirubin 0.4 mg/dL (0.2-1.0) 07/05/20 13:24 AST 32 U/L (15-37) 07/05/20 13:24 ALT 66 U/L (12-78) 07/05/20 13:24 Alkaline Phosphatase 271 U/L (45-117) H 07/05/20 13:24 Troponin I < 0.02 ng/mL (0.0-0.045) 07/06/20 05:07 Triglycerides 65 mg/dL (<150) 07/06/20 05:07 Cholesterol 119 mg/dL (<200) 07/06/20 05:07 HDL Cholesterol 56 mg/dL (40-60) 07/06/20 05:07 Cholesterol/HDL Ratio 2.13 07/06/20 05:07 Home Medications: Aspirin 81 mg PO DAILY 12/23/19 Gabapentin 100 mg PO M,W,F 12/23/19 Sertraline [Zoloft*] 100 mg PO DAILY 12/23/19 Clopidogrel Bisulfate [Plavix*] 75 mg PO DAILY #30 tablet 12/26/19 Folic Acid 1 mg PO DAILY #30 tablet 12/26/19 Atorvastatin Calcium [Lipitor] 20 mg PO BEDTIME 02/09/20 Calcium Carbonate [Tums Regular*] 2 tab PO TIDWM 06/26/20 Famotidine [Pepcid*] 20 mg PO DAILY 06/26/20 Fenofibrate [Tricor*] 48 mg PO DAILY 06/26/20 Furosemide [Lasix*] 40 mg PO BID 06/26/20 Hydroxyzine HCl [Atarax] 10 mg PO TID PRN 06/26/20 Insulin Glargine,Hum.rec.anlog [Toujeo Max Solostar] 20 unit SQ BEDTIME 06/26/20 Insulin Lispro [Humalog] 15 unit SQ AC 06/26/20 Levothyroxine Sodium 150 mcg PO DAILY 06/26/20 Lisinopril [Zestril] 20 mg PO DAILY 06/26/20 Magnesium Oxide 400 mg PO DAILY 06/26/20 Metoclopramide HCl 5 mg PO DAILY 06/26/20 Multivitamin 1 each PO DAILY 06/26/20 PARoxetine HCL [Paroxetine HCl] 40 mg PO DAILY 06/26/20 Sevelamer Carbonate [Renvela*] 800 mg PO TIDWM 06/26/20 Tramadol HCl [Ultram] 50 mg PO DAILY PRN 06/26/20 Zinc Oxide/Menthol/Calamine [Lantiseptic Multi-Purpose Oint] 113 gm TP DAILY PRN 06/26/20 Patient Discharge Instructions: OK TO DC IV AND DC HOME. FOLLOW-UP WITH PRIMARY CARE PROVIDER IN 1-2 WEEKS. FOLLOW-UP WITH CARDIOLOGY IN 1-2 WEEKS and Nephrology for hemodialysis. RETURN TO THE ER IF symptoms worsen. CALL DR. SARMIENTO AT [phone] IF ANY QUESTIONS REGARDING HOSPITAL STAY. PLEASE CALL THE FLOOR AT [phone] IF ANY MEDICATION OR NURSING QUESTIONS. Diet: Renal Activity: Fall precautions Followup: Nael Beckman MD [ACTIVE - CAN ADMIT] - 1-2 Weeks (Follow up with Dr. Beckman or your electric meter repairer- call to schedule an appointment ) Elder Tejeda MD [ACTIVE - CAN ADMIT] - (Follow up with Dr. Tejeda or your educational/development assistant- call to schedule an appointment ) Ana Kendall, PRODUCT DEVELOPMENT DIRECTOR [Primary Care Provider] - 1-2 Weeks (PCP- call to schedule an appointment ) Time spent managing pt's care (in minutes): 35
== END 2020-07-06 17:30 | disposition home health service (06) ==
LOC: ER 12:32 → ERHOLD 15:05 → 4TH 17:50
PROVIDERS: ADMIT Hospitalist; ATTEND Hospitalist
DX: M94.0 Chondrocostal junction syndrome [Tietze] (principal); I12.0 Hypertensive chronic kidney disease with stage 5 chronic kidney disease or end stage renal disease; N18.6 End stage renal disease; Z99.2 Dependence on renal dialysis; E11.22 Type 2 diabetes mellitus with diabetic chronic kidney disease; Z20.828 Contact with and (suspected) exposure to other viral communicable diseases; R55 Syncope and collapse; Z86.73 Personal history of transient ischemic attack (TIA), and cerebral infarction without residual deficits; Z79.82 Long term (current) use of aspirin; Z79.4 Long term (current) use of insulin; H54.8 Legal blindness, as defined in USA; D63.1 Anemia in chronic kidney disease; E87.5 Hyperkalemia; E03.9 Hypothyroidism, unspecified; E11.40 Type 2 diabetes mellitus with diabetic neuropathy, unspecified; F32.9 Major depressive disorder, single episode, unspecified; K21.9 Gastro-esophageal reflux disease without esophagitis; E78.5 Hyperlipidemia, unspecified; Z89.411 Acquired absence of right great toe; F17.200 Nicotine dependence, unspecified, uncomplicated
CPT/HCPCS: 96361; 93005 ×2; 93306; 87040 ×2; 87070; 85025 ×2; 80048 ×3; 36415; 83735; 87205; 85610; 80061; 82947 ×5; 80076; 83605 ×2; 87077 ×2; 87186 ×2; 84484 ×3; 84145; 83880; 70450; 71250; 74176; 71045; 90935; 96360; 99285; U0002; J1650; J1644; P9047; J7030; G0378 ×3; J1815

== ENCOUNTER 2020-08-01 11:10 | Observation (INO) | payer OTHER ==
--- OUTSIDE RECORDS SUMMARY | 2020-08-01 11:19 | XMS REPORT | Clinical Summary ---
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 HEPATITIS B SURFACE Routine 05/18/2020 5:37 PM CDT Results for this ANTIBODY procedure are i [...] the results section . SARS-COV2/RT-PCR ([facility] & Routine 05/18/2020 7:57 AM CDT Results for this REF LABS) procedure are i n the results [...] procedure are in the results section . after 08/01/2019 Results POC-Glucose meter (05/24/2020 7:58 AM CDT)Only the most recent of22 results within the time period is included. POC-Glucose Meter 151 (H)Comment: : 70 - 110 [facility] mg/dL [facility] [address] [facility] [id number]: Hot Stick Man/Technicia n ID = [id number] for Emilee Kuhn Specimen Blood Performing Organization Address City/State/Zipcode Phone Number [facility] [address] [place] [address] CENTER CBC with platelet count + automated diff (05/24/2020 4:39 AM CDT)Only the most recent of7 resultswithin [...] LABORATORY e Specimen Blood Performing Organization Address City/[facility]/Zipcode Phone Number [facility] [address] [place], [place] [address] Phosphorus (05/24/2020 4:39 AM CDT)Only the most recent of6 resultswithin the time period is included. Pathologist Sig nature Phosphorus 4.0 2.5 - 4.5 mg/dL [facility] Specimen Blood Narrative Performed At Hot Stick Man ID - ADMIN [place] [facility] Performing Organization Address [facility] Phone Number [facility] [address] [place], [place] [address] Basic Metabolic Panel (05/24/2020 4:39 AM CDT)Only the most recent of7 results within the time period is included. Sodium 140 135 - 148 meq/L [facility] Potassium 4.0 3.6 - 5.5 meq/L [facility] Chloride 101 98 - 106 meq/L [facility] CO2 28 20 - 29 meq/L [facility] BUN 13 10 - 26 mg/dL [facility] Creatinine 3.66 (H) 0.50 - 1.20 [...] DIALYSIS PATIENTS. Specimen Blood Narrative Performed At Hot Stick Man ID - ADMIN [facility] Performing Organization Address City/State/Zipcode Phone Number [facility] [address] [place], [place] [address] Vancomycin level, random (05/23/2020 4:02 AM CDT)Only the most recent of3 resultswithin the time period is included. Pathologist Sig nature Vancomycin Rm 19.7 ug/mL [facility] Specimen Blood Narrative Performed At Reference Range: No Normals [facility] Hot Stick Man ID - ADMIN Performing Organization Address City/[facility]/Zipcode Phone Number [facility] [address] [place], [place] [address] TRANSFUSION SERVICE REPORT - SCAN (05/22/2020 6:25 PM CDT) Narrative Performed At This result has an attachment that is no t available. Tissue Exam (05/21/2020 12:36 PM CDT) Case Report Surgical Pathology Report Case: [id number] [facility] Authorizing Provider: Jada Herron DPM Collected: 05/21/2020 12:36 PM LABORATORY Ordering Location: [facility] Med Surg 5th Floor Received: 05/21/2020 12:49 PM Pathologist: Ann Meeks MD Specimen: Bone, right 1 st metatarsal head bone biopsy DIAGNOSIS BONE, RIGHT FIRST METATARSAL HEAD, BIOPSY: [place] Electronically - BONE WITH FOCAL FIBROSI S AND CHRONIC INFLAMMATION, CONSISTENT WITH CHRONIC OSTEOMYELITIS LABORATORY signed by Milo Meeksing Pathologist Direct Phone Line: [phone] Ann Jung MD on 05/22/2020 at 11:55 AM CPT Code(s) 70934; [id number] [facility] CLINICAL HISTORY Right foot abscess [facility] SPECIMEN SOURCE Right 1st metatarsal [place] head bone biopsy LABORATORY GROSS DESCRIPTION Specimen is received [facility] in formalin LABORATORY designated "bone" and consists of two marin-red bone fragments measuring 1 x 0.3 x 0.3 cm, submitted after decalcification in cassette A1. SQ/pl MICROSCOPIC Performed. [facility] DESCRIPTION LABORATORY Gross assessment [facility] [place] was performed at [facility], Department LABORATORY of Pathology, [address] [place] [id number], Technical [facility] [place] component was [facility], LABORATORY performed at Department of Pathology, [address] [place] [phone], Professional [facility] [place] component was Hospital, Department LABORATORY performed at of Pathology, [address] [place] [id number], Specimen Tissue - Entire bone (organ) (body struc ture) Narrative Performed At This result has an attachment that is no t available. Performing Organization Address City/State/Zipcode Phone Number [facility] [address] [place] [phone] Anaerobic culture (05/21/2020 12:18 PM CDT)Only the most recent of2 results within the time period is included. Pathologist Sig nature Result No anaerobes isolated [facility] RY Specimen Wound - Metatarsal, Right Performing Organization Address City/State/Zipcode Phone Number [facility] [address] [place] [phone] Surgically obtained culture + gram stain (05/21/2020 12:18 PM CDT)Only the most recent of2 resultswithin the time period is included. Result <1+ Trinidad [facility] parapsilosis (A) LABORATORY Gram Stain Result No White blood cells [place] seen LABORATORY Gram Stain Result No organisms seen [facility] Specimen Wound - Metatarsal, Right Performing Organization Address [facility]/Zipcode Phone Number [facility] [place] [phone] ABORH, manual (05/21/2020 4:59 AM CDT) Pathologist Sig nature ABO Grouping O [facility] AL Rh Factor POS [facility] Specimen Blood Performing Organization Address City/[facility] Phone Number [facility] [address] [place], [place] [address] [phone] [facility] Type and screen, automated (05/21/2020 3:52 AM CDT) Pathologist Sig nature ABO/RH AUTOMATED O POSITIVE [facility] ([facility] Ab Scrn NEGATIVE [facility] Specimen Blood Performing Organization Address [facility] Phone Number [address] [address] [facility] Iron, TIBC, % sat. (without ferritin) (05/21/2020 3:52 AM CDT) Pathologist Sig nature Iron 68.0 45.0 - 170.0 [facility] ug/dL TIBC 170 (L) 250 - 550 ug/dL [facility] Iron % Saturation 40 20 - 55 % [facility] Specimen Blood Narrative Performed At Hot Stick Man ID - ADMIN [facility] Performing Organization Address [facility] Phone Number [facility] [address] [place], [place] [phone] aPTT (05/21/2020 3:52 AM CDT) Pathologist Sig nature PTT 27.9 23.0 - 35.0 sec [facility] Specimen Blood Narrative Performed At Final Information (Auto Output) [facility] Performing Organization Address [facility] Phone Number [facility] [address] [place] [phone] Prothrombin time/INR (05/21/2020 3:52 AM CDT) Pathologist Sig nature Protime 10.9 9.3 - 12.0 sec [facility] INR 1.00 <=5.90 [facility] Specimen Blood Narrative Performed At RECOMMENDED COUMADIN/WARFARIN INR THERAP Y RANGES [facility] STANDARD DOSE: 2.0 - 3.0 Includes: PROPHYLAXIS for venous thrombosis, systemic embolization; TREATMENT for venou s thrombosis and/or pulmonary embolus. HIGH RISK: Target INR is 2.5-3.5 for patients with mec hanical heart valves. Final Information (Auto Output) Final Information (Auto Output) Performing Organization Address City/[facility] Phone Number [facility] [address] [place], [place] [phone] hCG, serum, qualitative (05/21/2020 3:52 AM CDT) Pathologist Sig nature Preg Test, Serum Negative [facility] Specimen Blood Performing Organization Address [facility] [place] [address] Magnesium (05/21/2020 3:52 AM CDT)Only the most recent of4 resultswithin the time period is included. Pathologist Sig nature Magnesium 2.0 1.5 - 3.0 mg/dL [facility] Specimen Blood Narrative Performed At Hot Stick Man ID - ADMIN [facility] Performing Organization Address [facility] Number [place] [address] TSH/Free T4 If Indicated (05/20/2020 6:19 AM CDT) Pathologist Sig nature TSH 3.130 0.350 - 5.500 uIU/mL [facility] Y Specimen Blood Narrative Performed At Hot Stick Man ID - ADMIN [facility] Performing Organization Address [facility] Number [facility] [address] [place], [place] [phone] Hepatitis B surface antibody (05/18/2020 5:37 PM CDT) Pathologist Sig nature Hep B S Ab 9.4 (H) <8.0 mIU/mL [facility] Specimen Blood Narrative Performed At Hot Stick Man ID - [facility] Performing Organization Address [facility] Phone Number [facility] [address] [place] [address] CENTER Hepatitis B surface antigen (05/18/2020 5:37 PM CDT) Pathologist Sig nature HBsAg Screen Nonreactive Nonreactive [facility] Specimen Blood Narrative Performed At Hot Stick Man ID - ADMIN [facility] Performing Organization Address City/State/Zipcode Phone Number [facility] [address] [facility] [place] [address] MR lower extremity without IV contrast right side (05/18/2020 11:54 AM CDT) Specimen Narrative Performed At FINAL REPORT [facility] MRI of the right forefoot without intrav [...] Report Verified Date/Time: 05/18/2020 15:44:11 Reading Location: [facility] Radiology Reading Room Procedure Note Interface, External [...] Verified Date/Time: 05/18/2020 1 5:44:11 Reading Location: [facility] Radiology Reading Room Performing Organization Address City/State/Zipcode Phone Number [facility] Blood Culture - Routine (Left Venipuncture) (05/18/2020 8:55 AM CDT) Pathologist Sig nature Result No growth in 5 days [facility] Specimen Blood - Entire left upper arm (body stru cture) Performing Organization Address City/State/Zipcode Phone Number [facility] [address] [facility] [place] [address] Vancomycin level, trough (05/18/2020 8:31 AM CDT) Pathologist Sig nature Vancomycin Tr 15.1 10.0 - 20.0 ug/mL [facility] Specimen Blood Narrative Performed At Hot Stick Man ID - ADMIN [facility] Performing Organization Address [facility] Phone Number [facility] [address] [place] [phone] C-Reactive Protein (05/18/2020 8:25 AM CDT) Pathologist Sig nature CRP 1.17 (H) 0.00 - 0.50 mg/dL [facility] Specimen Blood Narrative Performed At Hot Stick Man ID - ADMIN [facility] Performing Organization Address [facility] Number [facility] [address] [place] [phone] Hemoglobin A1c (05/18/2020 8:25 AM CDT) Pathologist Sig [facility] Hemoglobin A1C 9.4 (H) 4.3 - 6.1 % [facility] Specimen Blood Narrative Performed At Hot Stick Man ID - ADMIN [facility] Performing Organization Address [facility] Phone Number [facility] [address] [place] [phone] Hepatic function panel (05/18/2020 8:25 AM CDT) Protein, Total 6.9Comment: 6.0 - 8.5 [facility] Specimen slightly gm/dL LABORATORY hemolyzed Albumin 3.1 (L)Comment: 3.5 - 5.0 [facility] Specimen slightly g/dL LABORATORY hemolyzed Total Bilirubin 0.5Comment: 0.1 - 1.2 [facility] Specimen slightly mg/dL LABORATORY hemolyzed Bilirubin, Direct 0.2Comment: 0.0 - 0.4 [facility] Specimen slightly mg/dL LABORATORY hemolyzed Alkaline 146 (H) 30 - 115 U/L [facility] Phosphatase LABORATORY AST 31Comment: 5 - 40 U/L [place] Specimen slightly LABORATORY hemolyzed ALT 26Comment: 5 - 50 U/L [facility] Specimen slightly LABORATORY hemolyzed Specimen Blood Narrative Performed At Hot Stick Man ID - ADMIN [facility] Performing Organization Address [facility] Phone Number [facility] [address] [facility] [place] [address] SARS-CoV2/RT-PCR (Asymptomatic ONLY) (05/18/2020 7:57 AM CDT) SARS-COV2/RT-PCR Negative Not Detected, [facility] PATRICK Negative, See [facility] external report CENTER for linked test SARS-COV-2 [facility] GEOFFREY [facility] PERFORMING LAB [facility] Specimen Other - Nasopharyngeal wall structure (b lisette structure) Narrative Performed At Negative result for this test determines that [facility] SARS-CoV-2 RNA was not present in the [...] the Act. Fact Sheet for Healthcare Providers: https://www.Outcome Referrals.com/sites/default/files/pro duct/documents/Fact_Sheet_HC_Providers_Lyra_SA RS-CoV-2.pdf Fact Sheet for Healthcare Patients: https://www.Outcome Referrals.[employer]/sites/default/files/pro duct/documents/Fact_Sheet_Patients_Lyra_SARS-C oV-2.pdf Performing Laboratory: [address] [address] Performing Organization Address City/State/Zipcode Phone Number [address] [phone] CENTER XR chest 1 view portable / bedside (05/18/2020 5:55 AM CDT) Specimen Narrative Performed At FINAL REPORT GE [...] Report Verified Date/Time: 05/18/2020 08:11:49 Reading Location: [employer] y Reading Room Procedure Note Interface, External [...] Verified Date/Time: 05/18/2020 0 8:11:49 Reading Location: [employer] [facility] Reading Room Performing Organization Address City/State/Zipcode Phone Number GE RIS [id number]-SCANNED (05/18/2020) Narrative Performed At This result has an attachment that is no t available. Ordered by an unspecified provider. after 08/01/2019 Insurance Payer Benefit Plan Subscriber ID Effective Phone Address Typ e / Group Dates [facility] [id number] 2016-Prese HEALTHCARE - MEDICARE HMO nt MEDICARE [place] CARE [facility] [id number] 2013-[place] STAR PLAN nt [facility] Advance Directives For more information, please contact: [phone] Code Status Date Activated Date Inactivated Comments Full Code 05/18/2020 5:13 AM 05/24/2020 1:21 PM This code status was determined by: Patient Full Code 07/16/2019 12:46 AM 07/18/2019 4:56 PM This code status was determined by: Patient Full Code 03/14/2017 8:30 PM 03/20/2017 12:11 PM This code status was determined by: Patient
--- OUTSIDE RECORDS SUMMARY | 2020-08-01 11:23 | XMS REPORT | Continuity of Care Document ---
:1975 Author Organization [facility] t Address [address] [place] [address] Care Team Providers Name Role Phone PETER Attending Clinician Unavailable Peter REYNOSO Attending Clinician Zhao Giles MD Attending Clinician Vera REYNOSO Attending Clinician Renny Ayala MD Attending Clinician Joann Alfonso DPM Attending Clinician VIOLETA Attending Clinician Unavailable LYN EDWARDS Attending Clinician Unavailable PETER Admitting Clinician Unavailable Graham SALINAS Admitting Clinician Unavailable LYN EDWARDS Admitting Clinician Unavailable Payers Payer Name Policy Type Policy Effective Date Expiration Date Sour ce Number [facility] [id number] 2016 [facility] - MEDICARE MGD 00:00:00 - [facility] MEDICARE [id number]/[id number] 017-Present MEDICAID - [id number] 2013 [facility] MEDICAID MGD 00:00:00 - Medical CARED [facility] STAR [id number]-PresentMedic aid Contracted Problems Condition Condition Condition Status Onset Resolution Last Treating Co mments Source Name Details Category Date Date Treatment Clinician Date Cellulitis Cellulitis Disease Active 2019-[address] of second of second 0-02 [facility] - toe of toe of 00:00: Medical right foot right foot 00 Ce nter Left sided Left sided Disease Active 2018-[address] numbness numbness 09-15 [facility] - 00:[facility]: Medical Center ESRD on ESRD on Disease Active 2018-[address] [facility] dialysis dialysis 09-15 [facility] - 00:00: Medical 00 [place] Proteinuri Proteinuri Disease Active [facility] a a 03-20 [facility] - [facility] Center Gastropare Gastropare Disease Active [facility] sis sis 03-19 [facility] - 00:00: Medical 00 Center DELMA (acute DELMA (acute Disease Active [facility] kidney kidney 03-16 [facility] - injury) injury) 00:00: Medical 00 Center Acute Acute Disease Active [facility] metabolic metabolic 03-16 [facility] - encephalop encephalop 00:00: Sc dical athy athy 00 [place] Cerebrovas Cerebrovas Disease Active [facility] cular cular 03-15 [facility] - accident accident 00:00: Medica l (CVA) due (CVA) due 00 Cent er to to embolism 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 Hypothyroi Hypothyroi Disease Active [facility] dism dism 03-15 [facility] - 00:[facility]: Medical Center Diabetes Diabetes Disease Active [facility] t mellitus mellitus 03-15 [facility] - 00:00: Medical [place] Depression Depression Disease Active [facility] 03-15 [facility] - [facility] Center Anxiety Anxiety Disease Active [facility] 03-15 [facility] - [facility]: Medical Center GERD GERD Disease Active [facility] (gastroeso (gastroeso 03-15 Carolann kes - phageal phageal 00:00: Medical reflux reflux 00 Center disease) disease) COPD COPD Disease Active [facility] (chronic (chronic 03-15 [facility] - obstructiv obstructiv 00:00: Sc dical e e 00 Center pulmonary pulmonary disease) disease) Chronic Chronic Disease Active [facility] renal renal 03-15 [facility] - disease disease 00:00: Medical 00 Center Hyperlipid Hyperlipid Disease Active [facility] emia emia 03-15 [facility] - 00:00: Medical 00 Center History of History of Disease Active [facility] thyroid thyroid 03-15 [facility] - cancer cancer 00:00: [address] Blind Blind Disease Active [facility] 03-15 [facility] - 00:: [address] Tobacco Tobacco Disease Active [facility] abuse abuse 03-15 [facility] - 00:00: [address] Diabetic Diabetic Disease Active [facility] t retinopath retinopath 03-15 [facility] y y 00:00: [address] Diabetic Diabetic Disease Active [facility] t nephropath nephropath 03-15 [facility] - y y 00:00: [address] Allergies, Adverse Reactions, Alerts Allergy Allergy Status Severity Reaction(s) Onset Inactive Treating Comm ents Source Name Type Date Date Clinician No Known DA Active [facility] Allergie 08-22 [place] 00:[facility]: [address] Family History Family Member Diagnosis Comments Start Date Stop Date Source Natural daughter No Known Problem CH I [facility] Natural father Hypertension [facility] Natural mother Diabetes [facility] Natural mother Hypertension [facility] Natural mother Kidney disease [facility] Social History Social Habit Start Date Stop Date Quantity Comments Source History [facility] - Alcohol Std Drinks Medica [facility] History [facility] - Alcohol Binge [facility] ter Sex Assigned At [facility] Cigarettes smoked 2020-05-24 2020-05-[address] [facility] - current (pack per 00:00:00 00:00:00 [facility] day) - Reported Cigarette 2020-05-24 2020-05-24 [facility] - pack-years 00:00:00 00:00:00 [facility] Tobacco use and 2020-05-24 2020-05-24 Never used [facility] - exposure 00:00:00 00:00:00 [facility] Alcohol intake 2020-05-24 2020-05-[address] [facility] [address] [facility] - 00:00:00 00:00:00 non-drinker of Medical Ce nter alcohol (finding) History SDOH 2020-05-18 2020-05-[address] [facility] - Alcohol Frequency 00:00:00 00:00:00 [facility] History of tobacco 2020-05-[address] [facility] use [facility] Center Smoking Status Start Date Stop Date Source Former smoker 2020-05-24 00:00:00 2020-05-24 00:00:[address] [facility] Medications Ordered Filled Start Stop Current [...] needed for Anxiety. busPIRone 2019-08 Yes 10mg Q.[id number] Take [address] (BUSPAR) 10 0-08 [id number] by mouth 3 [facility] - MG tablet [...] [facility] ne 0-08 mcg by [facility] - (SYNTHROID, 11:21: mouth Medic al LEVOTHROID) 49 Every Center 150 MCG morning on tablet an empty stomach. magnesium 2019-08 Yes 400mg QD Take [address] oxide 0-08 mg by [facility] - (MAG-OX) 11:21: mouth Medical 400 mg [...] St avni HCl 0-08 by mouth 4 [facility] - (REGLAN) 10 11:21: (four) Medi ghassan MG tablet 49 times Center daily as needed for Nausea. erythromyci 2019-08 Yes 250mg Take [address] n base 0-08 mg by Tyrese - (E-MYCIN) 11:21: mouth Medical 250 MG 49 every 6 Center tablet (six) hours as needed. sevelamer 2019-08- No 800mg Take [address] (RENVELA) 0-08 11-07 tablet [facility] - 800 mg 00:00: 23:59 (800 mg Medical tablet 00 :00 total) by Center mouth 3 (three) times daily with meals for 30 days. amoxicillin 2019-08 2020- No 1{tbl} Q.5D Take [address] -clavulanat 0-08 10-15 tablet by [facility]ann kes - e 00:00: 23:59 mouth 2 Medical (AUGMENTIN) 00 :00 (two) Center 875-125 mg times per tablet daily for 7 days. amLODIPine 2018-08 2020- No 5mg QD Take [address] (NORVASC) 5 09-1902 tablet (5 Carolann kes - MG tablet 00:00: 23:59 mg total) Me dical 00 :00 by mouth Center daily for 30 days. aspirin 81 2018-08 2020- No 81mg QD Take [address] MG chewable 09-19- tablet (81 L ukes - tablet 00:00: 23:59 mg total) Medic al 00 :00 by mouth Center daily for 30 days. atorvastati 2018-08 2020- No 40mg QD Take [address] n (LIPITOR) 2-09 17- tablet (40 L ukes - 40 MG 00:00: 23:59 mg total) Medica l tablet 00 :00 by mouth Center nightly for 30 days. cyclobenzap 2018-08 Yes 2.5mg Q.[id number] Take 2.[address] rine 0-16 [id number] mg by [facility] - (FLEXERIL) 00:00: 3D [...] Source Systolic blood 2020-05-24 07:48:00 133 mm[Hg] [facility] Diastolic blood 2020-05-24 07:48:00 63 mm[Hg] [facility] Heart rate 2020-05-24 07:48:00 89 /min [facility] Body temperature 2020-05-24 07:48:00 36.78 Mallory [facility] Respiratory rate 2020-05-24 07:48:00 18 /min [facility] Oxygen saturation in 2020-05-24 07:48:00 98 /min [facility] Arterial blood by Medical Ce nter Pulse oximetry Body height 2020-05-18 05:32:00 162.6 cm [facility] Body weight 2020-05-18 05:32:00 61.236 kg [facility] BMI 2020-05-18 05:32:00 23.16 kg/m2 [facility] Procedures Procedure Date / Time Performed Performing Clinician Isidro carter POCT-GLUCOSE METER 2020-05-24 07:58:00 Vera [facility] BASIC METABOLIC PANEL 2020-05-24 04:39:00 Nikolas Giles [address] PHOSPHORUS 2020-05-24 04:39:00 Nikolas Giles [facility] CBC W/PLT COUNT & AUTO 2020-05-24 04:39:00 Nikolas Giles [facility] POCT-GLUCOSE METER 2020-05-23 20:35:00 Vera [facility] HEMODIALYSIS INPATIENT 2020-05-23 11:33:43 Libby Gao [facility] POCT-GLUCOSE METER 2020-05-23 11:26:00 Vera [facility] POCT-GLUCOSE METER 2020-05-23 07:19:00 Nikolas Giles [facility] VANCOMYCIN LEVEL, RANDOM 2020-05-23 04:02:00 Mikel Tellez CH, I [facility] BASIC METABOLIC PANEL 2020-05-23 04:02:00 Nikolas Giles [address] PHOSPHORUS 2020-05-23 04:02:00 Nikolas Giles [facility] CBC W/PLT COUNT & AUTO 2020-05-23 04:02:00 Nikolas Giles [facility] POCT-GLUCOSE METER 2020-05-22 20:40:00 Nikolas Giles [facility] TRANSFUSION SERVICE 2020-05-22 18:25:34 Provider, Francisco [facility] REPORT - SCAN Scanning [facility] POCT-GLUCOSE METER 2020-05-22 11:30:00 Nioklas Giles [facility] POCT-GLUCOSE METER 2020-05-22 07:27:00 Nikolas Giles [facility] BASIC METABOLIC PANEL 2020-05-22 05:00:00 Nikolas Giles [facility] (7) [facility] PHOSPHORUS 2020-05-22 05:00:00 Nikolas Giles [facility] CBC W/PLT COUNT & AUTO 2020-05-22 05:00:00 Nikolas Giles [facility] POCT-GLUCOSE METER 2020-05-21 21:36:00 Nikolas Giles [facility] TISSUE EXAM 2020-05-21 12:36:00 Jada Alfonso [facility] POCT-GLUCOSE METER 2020-05-21 12:28:00 Nikolas Giles [facility] ANAEROBIC CULTURE 2020-05-21 12:18:47 Jada Alfonso [facility] SURGICALLY OBTAINED 2020-05-21 12:18:47 [facility] + GRAM STAIN [facility] ter ANAEROBIC CULTURE 2020-05-21 12:16:02 Jada Alfonso [facility] SURGICALLY OBTAINED 2020-05-21 12:16:02 Jada Alfonso [facility] - CULTURE + GRAM STAIN [facility] ter DEBRIDEMENT/I&D,WOUND 2020-05-21 11:30:00 Jada Alfonso [facility] LOWER [facility] ECG 12-LEAD 2020-05-21 09:24:05 Unknown, Hl7 Doctor [facility] POCT-GLUCOSE METER 2020-05-21 07:44:00 Nikolas Giles [facility] ABORH, MANUAL 2020-05-21 04:59:00 Ann Meeks [facility] BASIC METABOLIC PANEL 2020-05-21 03:52:00 [facility], Nikolas Churchill [facility] () [facility] MAGNESIUM 2020-05-21 03:52:00 [facility] PHOSPHORUS 2020-05-21 03:52:00 [facility] VANCOMYCIN LEVEL, RANDOM 2020-05-21 03:52:00 Ta, Radha-Elma Thi CH I [facility] IRON, TIBC, % SAT. 2020-05-21 03:52:00 LisetTravis [facility] (WITHOUT FERRITIN) [facility] PROTHROMBIN TIME/INR 2020-05-21 03:52:00 [facility], Nikolas Churchill [facility] APTT 2020-05-21 03:52:00 [facility], Nikolas Churchill [facility] HCG, SERUM, QUALITATIVE 2020-05-21 03:52:00 Melchor Ayala l [facility] TYPE AND SCREEN, 2020-05-21 03:52:00 [facility], Nikolas Churchill [facility] CBC W/PLT COUNT & AUTO 2020-05-21 03:52:00 [facility], Nikolas Churchill [facility] POCT-GLUCOSE METER 2020-05-20 21:08:00 [facility] POCT-GLUCOSE METER 2020-05-20 15:51:00 [facility] POCT-GLUCOSE METER 2020-05-20 11:20:00 [facility], Nikolas Churchill [facility] POCT-GLUCOSE METER 2020-05-20 07:21:00 [facility] BASIC METABOLIC PANEL 2020-05-20 06:19:00 [facility], Nikolas Churchill [facility] (7) [facility] MAGNESIUM 2020-05-20 06:19:00 [facility], Nikolas Churchill [facility] PHOSPHORUS 2020-05-20 06:19:00 Nikolas Giles [facility] TSH/FREE T4 IF INDICATED 2020-05-20 06:19:00 Nikolas Giles [facility] CBC W/PLT COUNT & AUTO 2020-05-20 05:07:00 Nikolas Giles [facility] POCT-GLUCOSE METER 2020-05-19 22:01:00 Nikolas Giles [facility] POCT-GLUCOSE METER 2020-05-19 16:24:00 Nikolas Giles [facility] POCT-GLUCOSE METER 2020-05-19 11:20:00 Nikolas Giles [facility] VANCOMYCIN LEVEL, RANDOM 2020-05-19 08:33:00 Jayleen Santana [facility] BASIC METABOLIC PANEL 2020-05-19 08:33:00 Nikolas Giles [facility] (7) [facility] MAGNESIUM 2020-05-19 08:33:00 Nikolas Giles [facility] PHOSPHORUS 2020-05-19 08:33:00 Nikolas Giles [facility] CBC W/PLT COUNT & AUTO 2020-05-19 08:33:00 Nikolas Giles [facility] POCT-GLUCOSE METER 2020-05-19 07:41:00 Nikolas Giles [facility] POCT-GLUCOSE METER 2020-05-18 20:50:00 Nikolas Giles [facility] HEPATITIS B SURFACE 2020-05-18 17:37:00 Travis Hutchins [facility] S [facility] ANTIGEN [facility] HEPATITIS B SURFACE 2020-05-18 17:37:00 Travis Hutchins [facility] S t [facility] - ANTIBODY [facility] POCT-GLUCOSE METER 2020-05-18 16:31:00 Nikolas Giles [facility] POCT-GLUCOSE METER 2020-05-18 12:43:00 Nikolas Giles [facility] MR LOWER EXTREMITY 2020-05-18 11:54:00 Peter, [facility] WITHOUT IV CONTRAST Medical Cent er RIGHT HEMODIALYSIS INPATIENT 2020-05-18 10:28:35 Travis Hutchins [facility] BLOOD CULTURE 2020-05-18 08:55:00 Peter [facility] VANCOMYCIN LEVEL, TROUGH 2020-05-18 08:31:00 Jayleen Santana [facility] BASIC METABOLIC PANEL 2020-05-18 08:25:00 Peter [facility] (7) [facility] HEPATIC FUNCTION PANEL 2020-05-18 08:25:00 [facility] HEMOGLOBIN A1C 2020-05-18 08:25:00 [facility] MAGNESIUM 2020-05-18 08:25:00 [facility] C-REACTIVE PROTEIN 2020-05-18 08:25:00 [facility] CBC W/PLT COUNT & AUTO 2020-05-18 08:25:00 [facility] SARS-COV2/RT-PCR ([facility] & 2020-05-18 07:57:00 [facility] - REF LABS) [facility] POCT-GLUCOSE METER 2020-05-18 07:26:00 Nikolas Giles [facility] XR CHEST 1 VIEW 2020-05-18 05:55:00 Peter [facility] PORTABLE/BEDSIDE Medical Center REPORT OF PROCEDURE - 2020-05-18 00:00:00 Provider, Default [facility] - ENDOSCOPY SCAN Scanning [facility] [id number] 2019-05-18 00:00:00 ENCPL [id number] 2019-05-18 00:00:00 ENCPL [id number] 2019-05-18 00:00:00 ENCPL [id number] 2019-05-18 00:00:00 ENCPL Plan of Care Planned Activity Planned Date Details Comments Source Future Scheduled 2022-07-16 Lipid panel [facility] - Test 00:00:00 (procedure) [code = Medical Center 78498885] Future Scheduled 2021-05-[address] [facility] - Test 00:00:00 examination Medical Center (regime/therapy) [code = 009986949] Future Scheduled 2020-08-[address] [facility] k[facility] - Test 00:00:00 measurement Medical Center (procedure) [code = 24170416] Future Scheduled 2020-04-17 INFLUENZA VACCINE (#1) C [...] 00:00:00 protein (procedure) Medical Center [code = 563260347] Future Scheduled 2017-08-[address] [facility] - Test 00:00:00 WELLNESS (YEAR 2 or Medical Center FIRST YEAR if no IPPE) [code = MEDICARE ANNUAL WELLNESS (YEAR 2 or FIRST YEAR if no IPPE)] Future Scheduled 1995-10-[address] [facility] - Test 00:00:00 malignant neoplasm of Medica l Center cervix (procedure) [code = 471532319] Future Scheduled 1984 DIABETIC EYE EXAM [facility] - Test 00:00:00 [code = DIABETIC EYE Medical Center EXAM] Encounters Start End Encounter Admission Attending Care Care Encounter Source Date/Time Date/Time Type Type Clinicians Facility Department ID 2019-04-12 Inpatient [facility] [id number] 13:57:46 2020-06-26 2020-06-26 Outpatient [facility] [id number] [facility] Results Test Description Test Time Test Comments Results Result Comments Source SURGICALLY OBTAINED CULTURE + GRAM STAIN 2020-05-25 11:27:00 Test Item Value Reference Range Interpretation Comme nts CULTURE (BEAKER) (test A From Broth Only Same organism code = 1095) has been isolat ed from culture(s) of t he same body site and collec tion date. Repeat identifi cation performed only after consultation wi th the clinical microbiology [facility].Refer to previous cul ture ofCandida parapsilosis GRAM STAIN RESULT No White blood cells seen (BEAKER) (test code = 1123) GRAM STAIN RESULT No organisms seen (BEAKER) (test code = 033283) Surgically obtained culture + gram [id number] 11:24:00 Test Item Value Reference Range Interpretation Comments Result (test code = <1+ Trinidad A 6463-4) parapsilosis Gram Stain Result (test No organisms seen code = 1123) Lab Interpretation (test Abnormal code = 03307-5) [facility] GRAM [id number] 11:24:00 Test Item Value Reference Range Interpretation Comments CULTURE (BEAKER) A <1+ Trinidad (test code = parapsilosis 1095) GRAM STAIN No White blood RESULT (BEAKER) cells seen (test code = 1123) GRAM STAIN No organisms seen RESULT (BEAKER) (test code = 19936) Anaerobic [id number] 15:40:00 Test Item Value Reference Range Interpretation Comments Result (test code = No anaerobes isolated 6463-4) [facility] [id number] 15:40:00 Test Item Value Reference Range Interpretation Comments CULTURE (BEAKER) (test No anaerobes isolated code = 1095) ANAEROBIC [id number] 15:40:00 Test Item Value Reference Range Interpretation Comments CULTURE (BEAKER) (test No anaerobes isolated code = 1095) POC-Glucose [id number] 08:09:00 Test Item Value Reference Range Interpretation Comments POC-Glucose Meter (test 151 mg/dL 70-110 H : TE STED AT [facility] code = 1538) [address] [facility] [address]: Shank Sorter/Techni tammy ID = [id number] for Emilee Kuhn Lab Interpretation (test Abnormal code = 62195-1) [facility] [id number] 08:09:00 Test Item Value Reference Range Interpretation Comments POC-GLUCOSE METER 151 mg/dL 70-110 H : TESTED A T SLS 1317 (BEAKER) (test code [address] [facility], = 1538) [facility] 77 478: Shank Sorter/Techni tammy ID = [id number] for Emilee Kovacs Basic Metabolic [id number] 06:34:00 Test Item Value Reference Range Interpretation Comments Sodium (test code = 140 meq/L 296-655 7630-2) Potassium (test code = 4.0 meq/L 3.6-5.5 2823-3) Chloride (test code = 101 meq/L 98-106 2075-0) CO2 (test code = 28 meq/L -29 2028-9) BUN (test code = 13 mg/dL - 3094-0) Creatinine (test code 3.66 mg/dL 0.5-1.2 H = 2160-0) Glucose (test code = 159 mg/dL 70-110 H 2345-7) Calcium (test code = 8.4 mg/dL 8.5-10.5 L 65900-5) EGFR (test code = 13 mL/min/1.73 [place] [address]-0) NOT ACCURATE CREATININE CLEARANCE IN PREDICTING GLOMERULAR FILTRATION RATE . ESTIMATED GFR I S NOT APPLICABLE FOR DIALYSIS PATIENTS. YAKELIN (test code = YAKELIN) Shank Sorter ID - ADMIN Lab Interpretation Abnormal (test code = 62828-3) [facility] METABOLIC [id number] 06:34:00 Test Item Value Reference Range Interpretation Comments SODIUM (BEAKER) 140 meq/L 135-148 (test code = 381) POTASSIUM (BEAKER) 4.0 meq/L 3.6-5.5 (test code = 379) CHLORIDE (BEAKER) 101 meq/L 98-106 (test code = 382) CO2 (BEAKER) (test 28 meq/L code = 355) BLOOD UREA NITROGEN 13 [...] S NOT APPLICABLE FOR DIALYSIS PATIEN TS. Shank Sorter ID - [id number] 06:23:00 Test Item Value Reference Range Interpretation Comments Phosphorus (test code = 4.0 mg/dL 2.5-4.5 2777-1) YAKELIN (test code = YAKELIN) Shank Sorter ID - ADMIN Lab Interpretation (test Normal code = 17919-7) [facility]2020-10-08 06:23:00 Test Item Value Reference Range Interpretation Comments PHOSPHORUS (BEAKER) (test code = 4.0 mg/dL 2.5-4.5 604) Shank Sorter ID - ADMINCBC with platelet count + automated [id number] 05:45:00 Test Item Value Reference Range Interpretation [...] 430 K/CU MM MPV (test code = 82357-4) 10.6 fL 6-11.5 nRBC (test code = [...] 2801) Lab Interpretation (test code = Abnormal 55173-2) [facility] W/PLT COUNT & AUTO [id number] 05:45:00 Test Item Value Reference Range Interpretation [...] PERCENT (BEAKER) (test code = 2801) POCT-GLUCOSE [id number] 20:47:00 Test Item Value Reference Range Interpretation Comments POC-GLUCOSE METER 205 mg/dL 70-110 H : TESTED A T [facility] 1317 (BEAKER) (test code [address], = 1538) [place] [address]: Shank Sorter/Techni tammy ID = [id number] for Pat Reyes Blood Culture - Routine (Left Venipuncture)2020-05-23 13:00:00 Test Item Value Reference Range Interpretation Comments Result (test code = No growth in 5 days 6463-4) [facility] [id number] 13:00:00 Test Item Value Reference Range Interpretation Comments CULTURE (BEAKER) (test No growth in 5 days code = 1095) POCT-GLUCOSE [id number] 11:38:00 Test Item Value Reference Range Interpretation Comments POC-GLUCOSE METER 74 mg/dL 70-110 : TESTED A T [facility] [address] (BEAKER) (test code = [address], [address]) [place] [address]: Shank Sorter/Techni tammy ID = [id number] for Buff ord, Soheila POCT-GLUCOSE [id number] 07:31:00 Test Item Value Reference Range Interpretation Comments POC-GLUCOSE METER 104 mg/dL 70-110 : TESTED A T [facility] [address] (BEAKER) (test code [address], = 1538) [place] [address]: Shank Sorter/Techni tammy ID = [id number] for Buff ord, Soheila BASIC METABOLIC [id number] 05:25:00 Test Item Value Reference Range Interpretation [...] S NOT APPLICABLE FOR DIALYSIS PATIEN TS. Shank Sorter ID - [id number] 05:21:00 Test Item Value Reference Range Interpretation Comments PHOSPHORUS (BEAKER) (test code = 5.1 mg/dL 2.5-4.5 H 604) Shank Sorter ID - ADMINVancomycin level, [id number] 05:20:00 Test Item Value Reference Range Interpretation Comments Vancomycin Rm (test 19.7 ug/mL code = 71087-6) YAKELIN (test code = Reference Range: No YAKELIN) NormalsOperator ID - ADMIN [facility], [id number] 05:20:00 Test Item Value Reference Range Interpretation Comments VANCOMYCIN RANDOM (BEAKER) (test 19.7 ug/mL code = 523) Reference Range: No NormalsOperator ID - ADMINCB W/PLT COUNT & AUTO [id number] 05:10:00 Test Item Value Reference Range Interpretation [...] PERCENT (BEAKER) (test code = 2801) POCT-GLUCOSE [id number] 20:52:00 Test Item Value Reference Range Interpretation Comments POC-GLUCOSE METER 127 mg/dL 70-110 H : TESTED A T [facility] [address] (BEAKER) (test code [address], = 1538) [facility] 77 478: Shank Sorter/Techni tammy ID = [id number] for Aanu siem, [facility] Lnks2354-06-68 11:55:00 Test Item Value Reference Range Interpretation Comments Case Report (test code Surgical Pathology = 104) Report Case: [id number] Authorizing Provider: Jada Alfonso DPM Collected: 05/21/2020 12:36 PM Ordering Location: [address] Received: 05/21/2020 12:49 PM Pathologist: Ann Meeks MD Specimen: Bone, right 1st metatarsal head bone biopsy DIAGNOSIS (test code = n1iaaDMxPWZjx5qhFPJsmB 3220) FuZzEwMzNcZnRuYmpcdWMx MBcdmgFrBIrff1RpL1DjWs AwMFxhbnNpXGRlZmxhbmcx KDAaTCD1vkKjGDDuFEqeHY BuEQjjQw4hgBVeuKryZiYk AIQrc1nkzjBWxzaxsEg4v8 rsWFDlLrX3cNEmKSefQ6yl vrWehUQzMPTqDVb6qO51OK UfoS9dkJBjODotdxCcPeU6 BWcdAUBeDkA9BBPwqWArKL EyS6mbMJOiYXbtMDJlFCru wCMfIUI7mWmeg6H5hJEfzI StxBwaIaVzSvSlYRNBd8Mh BTx4iZguJ1StEPRxZmC7aU QgUGFyYWdyYXBoIEZvbnQ7 cW42ZGiheuV0oQFuv1Lbf8 9jk514oB2wwLLlSPP7RURf GUMeqKPkXKKhAUL1KYCsqF PoA1f6HdHaoTSqR3G3UkQo dYGwM2L0RsXtpUKdZ2R8Oj YcmKIpKNGzaXRtJr4zgCCg fFEigl8jny83PTC3h0LaqF zrAKX3NWQ4MbZvJn1ykWBb QHJoQV9xOaEbkUBkSVBjfq 78vBtfPXwsjqUdnX6hYkSx OPAltRYpATEjCA6irPMfKA JmyY1ieitwLVIzWcUieirn RMBdoEkjzrBzHh7xlWyeTC A5TTdkP7lerM8kAkB6LTob T9ewoA4xSCh3DZcjwXZ7LN BciB2eQQ2erwwyw2qoQkEn UH5oxujzm4vqYiVrEK8ljb h6l1qbQnUrDB4roruge2hb NzIwXGhlYWRlcnkwXGZvb3 ZufevxGVQqm6BoB9EgbNog W64ntIloA45xLARrlQaazH 5vuUuvbA4hJbQoIaErPWxe bFxwbGFpblxmMVxmczIwXG iuujzkRADeNFmpI2ndInQe DZXwjFcxBJdfr1NuLOAqHS ZsSkLmMx8EAPufMkrBNAXe OvsXU1JgIFNOGTVCAbGUXD BPNOIMZNPBWB1LL1d2DJRg wnAuAENjFDBXSwUkW2rMZU ADU8XDPYGLJNAZO7KIZhGO HcHzN7bIZ00CVhHSOnEQMF 4XPGGSG54wHWUIWaCRJ0JN JcRvI0gQOBOBIHQOOceLFG 9TVEVPTVlFTElUSVNccGFy oJvqopIdTIzbj9YpNJcwBV AfYC9udJcfNHWaRU6gJVTx B4fjxL0nwlk4ZtTsBKRgZh O2TEXnkeY1Xlp4DSDkVSda f0mbo1GvRVSjOBf9sHizRo RkPSRqm1tkasFcQkKrZFCh UERmHITdvWOuR551s4jal2 aeftPowEM7NPTuYFA1BCoi jcFxxxV6MXrxoUJfAjE9QO tccmVkMFxncmVlbjBcYmx1 WRWrR647MOP1jKdfd0diGU I3FKBoZOMhJnEzPz1iyVFo C509RTXmGEAYCHJhlIf5AP LtkePdqaJaiLTJa860N870 l0tyIICoyiFcuBfGajxax2 kvA441BFQcbYNjvmKdFwQh QKGsxHKwqNF7HGXcOO6lin xqRKxpUYzgIIDxeeL6YALa zXWiI2CxTUCtHO5wqqqoWQ F4CGonEOCrCUL5AzMhPUVc d1Ivcim3RbFxjv3tms00GY T9r1VpdQveAVE6FYI4ViJn Xn5xrATtUGMnRN9xTlJhvH TlELSdyi61fIvxBPxkHDX9 OPFefcQew8Fua0flUqHofx KdY3qpH9JtQXRlSBMgKAWl FqXmsfRpy3Fqa6TtpNCdnY a8p5msWAEjVBFkbNfvc5wy ZBT3HJDwlARfW0kawL2tFB LmBL9jszhxm7pyJDwyHYtq KWRtaQZ3wyL4OKYlqHVeZ1 KjlQ2nXTOoPSlzVBWnyvu8 NtUwSw9osMVzuVipIUfpXw twYWdlXHBnbmNvbnRccGdu ZGVjXHBsYWluXHBsYWluXG YwXGZzMjRccWxcbGFuZzEw MzNcaGljaFxmMVxkYmNoXG ErLKcxS4wnMiYoOeCmJyr3 JZVstOMgKEEpEoh4NNVflC ZyNBMTmDsbbG1yFRAqrXsz zE6joMN1ETYvyoIsmUKNbI 7sYLASyX0uPwF5QsUkWkZ6 LTQyNDlccGFyfX0= CPT Code(s) (test code v6jgoLKzFLRpqLSnCkRaMH = 3357) YfHWQgp3uqZOWpkLPgAsUx MzNcZnRuYmpcdWMxXGRlZm Anr8rfo632wOTsv9gsQQRe TeJ4rAOgILSikFNmS283AI KwCXutb4rkq0JsWXDfaISj v6F6AEFUuhqkoLa9vLthZ4 7hz7L3HeyyK9keIAXzAAAo X7LhMZ5gKUTrIdw8BHQ8BI P4JVFeHBKoW4AhUN7oLNAe fBJwTIp5a5ubbCeqVORuYJ K3p3etSZusxpGfQM8lkh2t mCq1d0mnlxYeSRMqCORkhI NFXIVwP9JycUjzDf9fwRg0 vUarQjmpTQB3Icw4SN5cwb 04tvi3wOzlBERhmnkbOqL4 WGiuFUIwdgvsMMu4EXppQP JnbDcyMFxtYXJncjcyMFxt YXJndDcyMFxtYXJnYjcyMF njNVUmFCV0SKzpc131PCV2 KWmqe4nnx9fefLBdIdi4PX EqZcFmBbhkVLhed2Xbl7jm JZNlwk5iCAR3vWYjnNile1 R0aXEiUYOvyQSfrdSkGQAo IoY4QTswED9mpx56OUXzGX I3jz8lzCVtyNwtduWutVCv JOzfX2QoBGVfz795XKPtJ7 FdCWOdz9V7sfMnVpNyGKNo hCM9xaQ2RLMzAUj6eRZrzs S8soRrjMNoT5hefE14JvIs jEWlV4TfsI26CyJqxFVnI4 DdaO56UsGvuVXeA8IzuC46 BwScwVEjFDDbfUVuLj1mpK JtfLZmk4DvjYKlAImxU00q j378SEKzizWpV7yvmQLsgb kqeGAhgetlWWmolrA0PIRw XHBsYWluXGYxXGZzMjBcbG FuZzEwMzNcaGljaFxmMVxk ErFdCVQyEFurN9yrKdJiSf IxCUO0AEBqNeakGJgkZFTw cGFyfQ== CLINICAL HISTORY (test l4rbfTErNCYjnKRjNtXyWX code = 3356) PvOPAoe6liBBXhiMKzMqWx MzNcZnRuYmpcdWMxXGRlZm Ytt3wnw346wUXop3xbBRZe KvH0mFOtUZCbkMQrK172q0 yjk4qbnlDseWK7NDUnNEM1 IGqrkpSkaaZ6UYdsuVExRx A6BEcvfkCbUDbvsgRhklHr Bfu8HDMaJ529WMD0yBzjs7 dvVPD5QUVbGKVfYiJwKv8u rFUyL780SCFmZSOYNDBvoB q4OKJfedNzeyTicUMQg533 N067n3etXZBgguKmvAgFqa mgj8uwJ538BZEabFRgrcEr KjIcRVYlzZMpkZP0CALvNF 4eklteFqIgBX9jkosfKoPf RM1ghpb9FzNtAR7jjhkrQh GiGTdbIMRikrllMAEpi1Un vhhkPL0zN7Ciz3B5vV4irD JqRNTisDEqYqSyHBUrsh3p tKPrCZxfg5DeSKX5ifG6oA QzrBWqUXAgOH35Bkqxf4En IxzxVYN7WONkrhAio3Qji4 iqQpRcfmJeN5lhO7HkCDAl ADBdQRCvIqShrnCdo2Zwg1 HadFPzjQl0h8nqHUBgNSVo sImfn0ucFAW1SOXxZ3S1jO Bcw8pfHOjpBIJbbZM7eixw QKrsHOJcgiN7tsffQOlkTI NlwMW8curiOYhuFRYvHyD7 lkybRKuiEHXpOSK2SUfqc9 63UIL2XTqxWuteFZfeTTOx bmNvbnRccGduZGVjXHBsYW luXHBsYWluXGYwXGZzMjRc eWarbInzmD0hHwYlRxJuBL umWP9vGEHtQ2msgZAgOOKu HNCkB8ooWrXisU5lnGhtFL eqynOuWYZaR0f5JHLiu8Qm HSBlS2Evu1jhFNI1 SPECIMEN SOURCE (test c7xqePPpKITtsDXnXiUnXM code = 3377) CqPTLlj7zvFGInzKTlLkIq MzNcZnRuYmpcdWMxXGRlZm Xyk3wer879iXFms9oeHMGl MbN9tBGtRHFatNPdF302j5 wqp2qbyoUjfKM5YPYtFJT8 UQrpjnIkglO9NOxvxKUxMj T1DOrooiKcQBxwifLvxsOy Vco5XPLtJ587LIU1oDaxn0 qePUR0LWHzSZTnHmTaTq8d nRBdE676EBHoIDCTTRKidU s1ELItmrGxouVpnTQHq872 I549g2suQRUgnrLnkNzAfr blc0pzX086PAFgjCUfkxMb UcRsXQCdwTSerJJ2WFZaIB 6krtckMxJpEU9ekkphMkPg BL1oeza6KvReRE2haxosWy SvIIszBLRpslrvGHWzm3Wt npggTY4oJ6Dfs2P3qY0rsY SoNIFsyHDrIqEiUQKdiz1e vOHsSXuku0WsJRA9aoX9uC VmjWSlTOBtUW72Pftmt0Vm CfhbNWO9LDBvzyTig6Clg7 eiCpNtnbHnR9xwY1BvKUFn KMJyAHIlPdZwrsFzg5Yrk9 TdnGSauHa2s2cbJTAcWXCr jEywr9osQXE2ERWqK5W1gE Fdt6tlRKynKOAhoAH1stfp WEjkYXWwdpV5ddccVUqsVI ZwwVN3alulKAkyCSUsQxE2 wuvkZOdqJOTzKMF0LOcdo7 83IEF1OAefDoxiOUvpCVQt bmNvbnRccGduZGVjXHBsYW luXHBsYWluXGYwXGZzMjRc eTjzsGulwN8wDoMuTaXmSB izIW0zOWCzZ8kbbPYwSYBg SHGfX7woQmSipH3phHaiFR cqpzWySTQsS1i0CUUtlVHa AVHsoJAom2UmQWbtRHTgWy 3bEQFstU2vq6heqYXovI== GROSS DESCRIPTION (test p8vpfIVzKXVekSYnVgUwWC code = 5778) LlMBCws5bkSGRprSAnFjPd MzNcZnRuYmpcdWMxXGRlZm Puz9bzx900lKAlf4cxASFw BxW1iPRwDMWwvZKwQ146a2 sgi5lobvQsbGH4BQBrHJY2 TUcrggUlowL6HXysoLFfYt D2ARuzdeCzQVwucfRuirPe Oxi7XHSsL856DZG4mBcbe2 jeENI3HXYhWZNbJmWmOq8l aXHyG353UVWdUOZZNGFsmK h8SCLscfYfdjVloZOMa893 V990b7zwQCXuwrWsdPsMkk cos8odM862QQVzkGWstcKc PiHeCJXlrPCzkQB7KSEdMP 7eurncWyDyFL5zvddlEgSs YY7tjhl0NhPqHS0zicxjDy OjXXrdXKNzcuwrBNYcf7Nd vpjgUZ6wT9Ucx4Z0aA1fwH ErYZFksZPnVhZiFVFpas7x vMDrCRtjr2PwVBR9ijV3oK DixOTfJOGuJZ63Jzxtv8Ny LcesEBF9CUEqrqKcv5Okm3 xvCgYsyrIkG5kwM3ThAWMi FNNpCOPzZxUufwWrb3Gpu2 AwsNVfsJs4k0teMOWdBBMe sNbam6akYLO0SYSxY6Z6oB Gpl1emTNfzVEIqqDT9ozpa LCcwUMWcmhI1oojyHYmpAO UncOU9rsojXFcmJWFyRyD2 phaxVCxiYDYxEPY9POjdl3 09JAQ0BYapRsfxCBcsFVWw bmNvbnRccGduZGVjXHBsYW luXHBsYWluXGYwXGZzMjRc kBlyeWpkiL7kAsMgMqIlLH qsPB1iEUUxZ9erjRTvGSNl OVZpV0gcCiEwcW7nsHnxUA xmczIwIFNwZWNpbWVuIGlz WJFxY8SowwVaFDmfFXYihn 0buRuaHQKyy7cfedB4CBQe MbVspsHkODOcGVSxz81jrF C0myJrAbG1p12lqJUzOFYb FYIsi84wCIPwTNncVZ36fq VeWNVwgWCpphxzPJD3RLEw IqZ9CGHaQnYxxFluo5HweF p0vMTaCEFqsLBnIAKxT2Yy K6dseIFtxYqbpvOqazRwXH HsUBB4RRIPTF5vFMJYM5Du XHBhcn0= MICROSCOPIC DESCRIPTION c3wsvPRgGOKkpUFtQzGuLT (test code = 3371) JjMESxj1ifFWHzvBBoMuWt MzNcZnRuYmpcdWMxXGRlZm Fql3ell580qXZwe7vtIBBr RnU0lYBxVUEuzHAiQ253m6 hyk4plydKsuHG6EITsWRB9 NLzmgiSzsgO5MMmhzLGbQs P2QXvvwgRpIJgcliDnikHh Sjx8DYXpE769AYP9kCibu5 cuIFJ1TKEkAPAzGvOyJc4a jAXiU914FNTgTYROIOXrrB y4ZWOluzWkkbCgtBFFj082 O163f6ovBIYlteNvdPgCav wtp0uuL613EILusKWznkHw WyZiPXOcjMJunJH4TQYgRL 4uohzuZsPxXA4kurjcHcBe NE4mpzx8SdNeFB0yhdodId AcMAjaPFEnwmriUQHqx3Ns wutyOQ5gU8Hpj5H7nW2gvN PrONUvvZUwNbZtKEGzyb1h lVEjHXkfn9MhJUP0auV3sB LqtRQeIUAqPW93Yxqsd4Ca CbqoXVN7CAKmplBit2Hmj4 uqDeOfdrFaC4hxZ6GlFMZz CLTeHYUwNyZvyuOfl3Syf6 MbjYBlxDj7y4skWZXbHIXz qKzir0qnVTD2VBPsQ1L7wQ Blg1phZClgPKGxsEP4vxxl NHwlGIOxneE3byweXRucLT AxgXP0tdcpCEthUUDvJqN4 ibbfCLnjECBbTPF9HPatl9 04OGN5UQarWmqfUVhmHDIz bmNvbnRccGduZGVjXHBsYW luXHBsYWluXGYwXGZzMjRc xTmhrSokwN8iHaTeFhDqIH epUS7wSAJoV0gknSEaSWKv QSXuQ8hgOrXxjL3khFeuQN bdiyVxXOBqizRmmj2mKN9r XHBhcn0= Gross assessment was [facility] [place] performed at ([facility], Department = 2777) of Pathology, [address] [place] [address], [place] [address], Technical component was [facility] [place] [facility] performed at (test code [facility], = 2778) Department of Pathology, [address] [place] [address], Professional component [facility] was performed at ([facility], Department code = 2779) of Pathology, [address] [place] [address], [facility] CenterT[facility] [id number] 11:55:00Surgical Pathology Report Case: [id number] Authorizing Provider: Jada Alfonso DPM Collected: 05/21/2020 12:36 PM Ordering Location: [facility] Med Surg 5th Floor Received: 05/21/2020 12:49 PM Pathologist: Ann Meeks MD Specimen: Bone, right 1st metatarsal head bone biopsy BONE, RIGHT FIRSTMETATARSAL HEAD, BIOPSY: - BONE WITH FOCAL FIBROSIS AND CHRONIC INFLAMMATION, CONSISTENT WITH CHRONIC OSTEOMYELITIS Signing Pathologist Direct Phone Line: [phone] signed by Ann Meeks MD on 05/22/2020 at 11:55 [id number]; [id number] foot abscessRight 1st metatarsalhead bone biopsySpecimen is received in formalin designated "bone" and consists of two marin-red bone fragments measuring 1 x 0.3 x 0.3 cm, submitted after decalcification in cassette A1. SQ/plPerformed. [facility], Department of Pathology, [address] [place] [address], [facility], Department of Pathology, [address] [place] [address], Bj. [facility], Department of Pathology, [address] [place] [address], KWHK-GLUCOSE [id number] 11:41:00 Test Item Value Reference Range Interpretation Comments POC-GLUCOSE METER 84 mg/dL 70-110 : TESTED A T [facility] 1317 (BEAKER) (test code = [address]) [place] [address]: Shank Sorter/Techni tammy ID = [id number] for Mary Adames POCT-GLUCOSE [id number] 07:38:00 Test Item Value Reference Range Interpretation Comments POC-GLUCOSE METER 93 mg/dL 70-110 : TESTED A T [facility] [address] (BEAKER) (test code = [address], 1538) [facility] [place] [address]: Shank Sorter/Techni tammy ID = [id number] for Mary Adames BASIC METABOLIC [id number] 06:04:00 Test Item Value Reference Range Interpretation [...] S NOT APPLICABLE FOR DIALYSIS PATIEN TS. Shank Sorter ID - [id number] 05:51:00 Test Item Value Reference Range Interpretation Comments PHOSPHORUS (BEAKER) (test code = 4.4 mg/dL 2.5-4.5 604) Shank Sorter ID - ADMINCBC W/PLT COUNT & AUTO [id number] 05:30:00 Test Item Value Reference Range Interpretation [...] PERCENT (BEAKER) (test code = 2801) POCT-GLUCOSE [id number] 21:49:00 Test Item Value Reference Range Interpretation Comments POC-GLUCOSE METER 95 mg/dL 70-110 : TESTED A T [facility] [address]17 (BEAKER) (test code = [address], 1538) [facility] [address]: Shank Sorter/Techni tammy ID = [id number] for Jacquie Vázquez POCT-GLUCOSE [id number] 12:40:00 Test Item Value Reference Range Interpretation Comments POC-GLUCOSE METER 80 mg/dL 70-110 : TESTED A T [facility] [address] (BEAKER) (test code = [address], [address]) [place] [address]: Shank Sorter/Techni tammy ID = [id number] for Shirley an, Berenice hCG, serum, [id number] 10:42:00 Test Item Value Reference Range Interpretation Comments Preg Test, Serum (test code = Negative 0-5) [facility], SERUM, [id number] 10:42:00 Test Item Value Reference Range Interpretation Comments TEST SERUM (BEAKER) (test Negative code = 584) POCT-GLUCOSE [id number] 07:56:00 Test Item Value Reference Range Interpretation Comments POC-GLUCOSE METER 105 mg/dL 70-110 : TESTED A T [facility] [address] (BEAKER) (test code [address], = 1538) [place] [address]: Shank Sorter/Techni tammy ID = [id number] for Mary Adames ABORH, [id number] 05:28:00 Test Item Value Reference Range Interpretation Comments ABO Grouping (test code = 2588) O Rh Factor (test code = 2589) POS [facility] CenterType and screen, [id number] 04:53:00 Test Item Value Reference Range Interpretation Comments ABO/RH AUTOMATED (BEAKER) (test O POSITIVE code = 2260) Ab Scrn (test code = 890-4) NEGATIVE [facility] CenterIron, TIBC, % sat. (without ferritin)2020-05-21 04:24:00 Test Item Value Reference Range Interpretation Comments Iron (test code = 2498-4) 68.0 ug/dL 45-170 TIBC (test code = 2500-7) 170 ug/dL 250-550 L Iron % Saturation (test 40 % 20-55 code = 2502-3) YAKELIN (test code = YAKELIN) Shank Sorter ID - ADMIN Lab Interpretation (test Abnormal code = 25509-8) [facility] CenterBASIC METABOLIC [id number] 04:24:00 Test Item Value Reference Range Interpretation [...] S NOT APPLICABLE FOR DIALYSIS PATIEN TS. Shank Sorter ID - ADMINIRON, TIBC, % SAT. (WITHOUT FERRITIN)2020-05-21 04:24:00 Test Item Value Reference Range Interpretation Comments IRON (BEAKER) (test code = 547) 68.0 ug/dL 45.0-170.0 TOTAL IRON BINDING CAPACITY 170 ug/dL 250-550 L (BEAKER) (test code = 769) IRON % SATURATION (2) (BEAKER) 40 % 20-55 (test code = 2590) Shank Sorter ID - [id number] 04:20:00 Test Item Value Reference Range Interpretation Comments Magnesium (test code = 2.0 mg/dL 1.5-3 93604-6) YAKELIN (test code = YAKELIN) Shank Sorter ID - ADMIN Lab Interpretation (test Normal code = 77249-6) [facility] CenterMAGNESIUM2020-10-05 04:20:00 Test Item Value Reference Range Interpretation Comments MAGNESIUM (BEAKER) (test code = 2.0 mg/dL 1.5-3.0 627) Shank Sorter ID - ADMINProthrombin time/[id number] 04:18:00 Test Item Value Reference Range Interpretation [...] Output) Lab Interpretation Normal (test code = 82264-3) [facility] CenteraPTT2020-10-05 04:18:00 Test Item Value Reference Range Interpretation Comments PTT (test code = 27.9 23.0- 35.0 sec 07239-1) YAKELIN (test code = YAKELIN) Final Information (Auto Output) Lab Interpretation (test Normal code = 87295-5) [facility] CenterPROTHROMBIN [id number] 04:18:00 Test Item Value Reference Range Interpretation Comments PROTIME (BEAKER) (test code = 759) 10.9 sec 9.3-12.0 INR (BEAKER) (test code = 370) 1.00 <=5.90 RECOMMENDED COUMADIN/WARFARIN INR THERAPY RANGESSTANDARD DOSE: 2.0 - 3.0 Includes: PROPHYLAXIS forvenous thrombosis, systemic embolization; TREATMENT for venous thrombosis and/or pulmonary embolus.HIGH RISK: Target INR is 2.5-3.5 for patients with mechanical heart valves.Final Information (Auto Output)Final Information (Auto Output)[id number] 04:18:00 Test Item Value Reference Range Interpretation Comments PARTIAL THROMBOPLASTIN TIME (BEAKER) 27.9 sec 23.0-35.0 (test code = 760) Final Information (Auto Output)[id number] 04:17:00 Test Item Value Reference Range Interpretation Comments PHOSPHORUS (BEAKER) (test code = 6.9 mg/dL 2.5-4.5 H 604) Shank Sorter ID - ADMINVANCOMYCIN LEVEL, [id number] 04:16:00 Test Item Value Reference Range Interpretation Comments VANCOMYCIN RANDOM (BEAKER) (test 13.8 ug/mL code = 523) Reference Range: No NormalsOperator ID - ADMINCBC W/PLT COUNT & AUTO [id number] 04:03:00 Test Item Value Reference Range Interpretation [...] PERCENT (BEAKER) (test code = 2801) POCT-GLUCOSE [id number] 21:19:00 Test Item Value Reference Range Interpretation Comments POC-GLUCOSE METER 118 mg/dL 70-110 H : TESTED A T [facility] [address] (BEAKER) (test code [address], = 1538) [place] [address]: Shank Sorter/Techni tammy ID = [id number] for Jacquie Vázquez POCT-GLUCOSE [id number] 16:03:00 Test Item Value Reference Range Interpretation Comments POC-GLUCOSE METER 273 mg/dL 70-110 H : TESTED A T [facility] [address] (BEAKER) (test code [address], = 1538) [place] [address]: Shank Sorter/Techni tammy ID = [id number] for Mary Adames POCT-GLUCOSE [id number] 11:32:00 Test Item Value Reference Range Interpretation Comments POC-GLUCOSE METER 224 mg/dL 70-110 H : TESTED A T [facility] [address] (BEAKER) (test code [address], = 1538) [place] [address]: Shank Sorter/Techni tammy ID = [id number] for Mary Adames POCT-GLUCOSE [id number] 07:33:00 Test Item Value Reference Range Interpretation Comments POC-GLUCOSE METER 260 mg/dL 70-110 H : TESTED A T [facility] [address] (BEAKER) (test code [address] [facility] = 1538) [place] [address]: Shank Sorter/Techni tammy ID = [id number] for Mary Adames TSH/Free T4 If [id number] 07:06:00 Test Item Value Reference Range Interpretation Comments TSH (test code = 3.130 0.350- 5.500 uIU/mL 00193-2) YAKELIN (test code = YAKELIN) Shank Sorter ID - ADMIN Lab Interpretation (test Normal code = 19306-1) [facility] CenterTSH/FREE T4 IF [id number] 07:06:00 Test Item Value Reference Range Interpretation Comments THYROID STIMULATING HORMONE 3.130 uIU/mL 0.350-5.500 (BEAKER) (test code = 772) Shank Sorter ID - ADMINBASIC METABOLIC [id number] 06:52:00 Test Item Value Reference Range Interpretation [...] S NOT APPLICABLE FOR DIALYSIS PATIEN TS. Shank Sorter ID - [id number] 06:49:00 Test Item Value Reference Range Interpretation Comments MAGNESIUM (BEAKER) 1.9 mg/dL 1.5-3.0 Specimen slightly (test code = 627) hemolyzed Shank Sorter ID - [id number] 06:46:00 Test Item Value Reference Range Interpretation Comments PHOSPHORUS (BEAKER) 6.2 mg/dL 2.5-4.5 H Specimen slightly (test code = 604) hemolyzed Shank Sorter ID - ADMINCBC W/PLT COUNT & AUTO [id number] 05:25:00 Test Item Value Reference Range Interpretation [...] PERCENT (BEAKER) (test code = 2801) POCT-GLUCOSE [id number] 22:13:00 Test Item Value Reference Range Interpretation Comments POC-GLUCOSE METER 318 mg/dL 70-110 H : TESTED A T [facility] [address] (BEAKER) (test code [facility] [address], = 1538) [facility] [address]: Shank Sorter/Techni tammy ID = [id number] for Elissa Diaz POCT-GLUCOSE [id number] 16:36:00 Test Item Value Reference Range Interpretation Comments POC-GLUCOSE METER 238 mg/dL 70-110 H : Notified RN/MD: TESTED ([facility]) (test code AT [facility] [address] = 1538) [place] [id number]: Shank Sorter/Techni tammy ID = [id number] for Cuate Castañeda Hepatitis B surface [id number] 12:07:00 Test Item Value Reference Range Interpretation Comments Hep B S Ab (test code = 9.4 <8.0 mIU/mL H 19913-9) YAKELIN (test code = YAKELIN) Shank Sorter ID - JOEL Lab Interpretation (test Abnormal code = 62611-4) [facility] [id number] 12:07:00 Test Item Value Reference Range Interpretation Comments HEPATITIS B SURFACE ANTIBODY 9.4 mIU/mL <8.0 H (BEAKER) (test code = 647) Shank Sorter ID - RORYGPOCT-GLUCOSE [id number] 11:31:00 Test Item Value Reference Range Interpretation Comments POC-GLUCOSE METER 170 mg/dL 70-110 H : Notified RN/MD: TESTED ([facility]) (test code AT [facility] [address] = 1538) [place] [address]: Shank Sorter/Techni tammy ID = [id number] for Cuate Castañeda VANCOMYCIN LEVEL, [id number] 09:31:00 Test Item Value Reference Range Interpretation Comments VANCOMYCIN RANDOM (BEAKER) (test 14.3 ug/mL code = 523) Reference Range: No NormalsOperator ID - ADMINBASIC METABOLIC [id number] 08:59:00 Test Item Value Reference Range Interpretation [...] S NOT APPLICABLE FOR DIALYSIS PATIEN TS. Shank Sorter ID - [id number] 08:56:00 Test Item Value Reference Range Interpretation Comments MAGNESIUM (BEAKER) (test code = 1.9 mg/dL 1.5-3.0 627) Shank Sorter ID - [id number] 08:53:00 Test Item Value Reference Range Interpretation Comments PHOSPHORUS (BEAKER) (test code = 4.7 mg/dL 2.5-4.5 H 604) Shank Sorter ID - ADMINCBC W/PLT COUNT & AUTO [id number] 08:51:00 Test Item Value Reference Range Interpretation [...] PERCENT (BEAKER) (test code = 2801) POCT-GLUCOSE [id number] 07:53:00 Test Item Value Reference Range Interpretation Comments POC-GLUCOSE METER 153 mg/dL 70-110 H : Notified RN/MD: TESTED (BEAKER) (test code AT [address] = 15[address]) [facility] [address]: Shank Sorter/Techni tammy ID = [id number] for Leonidasannabelle Cuate coronado SARS-CoV2/RT-PCR (Asymptomatic ONLY)2020-05-19 00:02:00 Test Item Value Reference Range Interpretation Comments SARS-COV2/RT-PCR Negative Not Detected, (test code = Negative, See 99499-1) external report for linked test SARS-COV-2 [facility] PERFORMING LAB (test code = 96229-8) YAKELIN (test code = Negative result for [...] of the Act. Fact Sheet for Healthcare Providers:https://www.[employer]/sites/default/f shruthi/product/documents/F act_Sheet_HC_Providers_L ppo_VZJD-TzM-0.pdf Fact Sheet for Healthcare Patients:https://www.[employer]/sites/default/fi les/product/documents/Fa ct_Sheet_Patients_Lyra_S ARS-CoV-2.pdf Performing Laboratory:[facility] [place] [address] [facility]ARS-COV2/RT-PCR ([facility])2020-05-19 00:02:00 Test Item Value Reference Range Interpretation Comments SARS-COV2/RT-PCR (test Negative Not Detected, Negative, code = 5776355) See external report for linked test SARS-COV-2 PERFORMING LAB [facility] (test code = 1315184) Negative result for this test determines that [...] 564(g) of the Act.Fact Sheet for Healthcare Providers:https://www.Level.[employer]/sites/default/files/product/documents/Fact_Shee x_SQ_Inkbtzuev_Zxfa_SRYM-MaQ-5.pdfFact Sheet for Healthcare Patients:https://www.Level.com/sites/default/files/product/ documents/Fqtt_Qgbwg_Xftsclfv_Irsg_RNEY-WaT-8.pdfPerforming Laboratory:[facility], [place] [address]ENNX-RMEYRVT METER 2020-05-18 21:01:00 Test Item Value Reference Range Interpretation Comments POC-GLUCOSE METER 190 mg/dL 70-110 H : TESTED A T [facility] [address] (BENANCI) (test code [address], = 1538) [place] [address]: Shank Sorter/Techni tammy ID = [id number] for Nehal Patiño Hepatitis B surface [id number] 20:29:00 Test Item Value Reference Range Interpretation Comments HBsAg Screen (test code = Nonreactive Nonreactive 5195-3) YAKELIN (test code = YAKELIN) Shank Sorter ID - ADMIN Lab Interpretation (test Normal code = 71576-5) [facility] [id number] 20:29:00 Test Item Value Reference Range Interpretation Comments HEPATITIS B SURFACE ANTIGEN (2) Nonreactive Nonreactive (BEAKER) (test code = 2585) Shank Sorter ID - ADMINPOCT-GLUCOSE [id number] 16:43:00 Test Item Value Reference Range Interpretation Comments POC-GLUCOSE METER 211 mg/dL 70-110 H : TESTED A T [facility] [address] (BEAKER) (test code [address], = 1538) [place] [address]: Shank Sorter/Techni tammy ID = [id number] for Daryn marcanoMary MR, EXTREMITY, LOWER, WITHOUT CONTRAST, [id number] 15:44:00Recent amputation for R great toe osteomyelitis/diabetic [...] Tyler Verified Date/Time: 05/18/2020 15:44:11 Reading Location: [facility] Radiology Reading Room MR lower extremity without IV contrast right [id number] 15:44:00Interface, External Ris In - 05/18/2020 3:46 [...] Tyler Verified Date/Time: 05/18/2020 15:44:11 Reading Location: [facility] Radiology Reading [facility] 2020-05-18 12:55:00 Test Item Value Reference Range Interpretation Comments POC-GLUCOSE METER 169 mg/dL 70-110 H : TESTED A T [facility] [address] (BEAKER) (test code [address], = 1538) [facility] [place] [address]: Shank Sorter/Techni tammy ID = [id number] for Mary Adames Hepatic function [id number] 09:20:00 Test Item Value Reference Range Interpretation Comments Protein, Total (test 6.9 6.0- 8.5 gm/dL Speci men code = 2885-2) slightly hemolyzed Albumin (test code = 3.1 g/dL 3.5-5 [place] [address]-9) slightly hemolyzed Total Bilirubin (test 0.5 mg/dL [...] slightly hemolyzed YAKELIN (test code = YAKELIN) Shank Sorter ID - ADMIN Lab Interpretation Abnormal (test code = 47365-7) [facility] CenterHemoglobin [id number] 09:20:00 Test Item Value Reference Range Interpretation Comments Hemoglobin A1C (test code 9.4 % 4.3-6.1 H = 4548-4) YAKELIN (test code = YAKELIN) Shank Sorter ID - ADMIN Lab Interpretation (test Abnormal code = 18085-9) [facility] CenterHEPAT[facility] FUNCTION [id number] 09:20:00 Test Item Value Reference Range Interpretation [...] Specimen slightly (test code = 347) hemolyzed Shank Sorter ID - [id number] 09:20:00 Test Item Value Reference Range Interpretation Comments MAGNESIUM (BEAKER) 3.8 mg/dL 1.5-3.0 H Specimen slightly (test code = 627) hemolyzed Shank Sorter ID - ADMINHEMOGLOBIN [id number] 09:20:00 Test Item Value Reference Range Interpretation Comments HEMOGLOBIN A1C (BEAKER) (test code = 9.4 % 4.3-6.1 H 368) Shank Sorter ID - ADMINC-Reactive [id number] 09:19:00 Test Item Value Reference Range Interpretation Comments CRP (test code = 676) 1.17 mg/dL 0-0.5 H YAKELIN (test code = YAKELIN) Shank Sorter ID - ADMIN Lab Interpretation (test Abnormal code = 36146-0) [facility]OLIC [id number] 09:19:00 Test Item Value Reference Range Interpretation [...] S NOT APPLICABLE FOR DIALYSIS PATIEN TS. Shank Sorter ID - ADMINC-REACTIVE [id number] 09:19:00 Test Item Value Reference Range Interpretation Comments C-REACTIVE PROTEIN (BEAKER) (test 1.17 mg/dL 0.00-0.50 H code = 676) Shank Sorter ID - ADMINVancomycin level, [id number] 09:18:00 Test Item Value Reference Range Interpretation Comments Vancomycin Tr (test code = 15.1 ug/mL 10-20 4092-3) YAKELIN (test code = YAKELIN) Shank Sorter ID - ADMIN Lab Interpretation (test Normal code = 75531-8) [facility] CenterVANCOMYCIN LEVEL, [id number] 09:18:00 Test Item Value Reference Range Interpretation Comments VANCOMYCIN TROUGH (BEAKER) (test 15.1 ug/mL 10.0-20.0 code = 522) Shank Sorter ID - ADMINCBC W/PLT COUNT & AUTO [id number] 09:09:00 Test Item Value Reference Range Interpretation [...] PERCENT (BEAKER) (test code = 2801) POCT-GLUCOSE [id number] 08:18:00 Test Item Value Reference Range Interpretation Comments POC-GLUCOSE METER 177 mg/dL 70-110 H : TESTED A T [facility] 1317 (BEAKER) (test code [address], = 1538) [facility] 77 [address]: Shank Sorter/Techni tammy ID = [id number] for Mary Adames RAD, CHEST, 1 VIEW, NON [id number] 08:11:00Reason for exam:->shortness of breathShould this be [...] Bueno Verified Date/Time: 05/18/2020 08:11:49 Reading Location: [facility] Radiology Reading Room Electronically signedby: MARYCHUY BUENO M.D. on 05/18/2020 08:11 AMXR chest 1 view portable / [id number] 08:11:00Interface, External Ris In - 05/18/2020 8:13 [...] Bueno Verified Date/Time: 05/18/2020 08:11:49 Reading Location: [facility] Radiology Reading Room [facility] [id number] 00:00:00Ordered by an unspecified provider.[facility]AT[facility] SURF AB, [id number] 18:16:00 Test Item Value Reference Range Interpretation [...] ~~~~~~~~ ~~~~~~~~~~~~~~~ ~~~~~~~~ ~ AG HEPATITIS B [id number] 18:16:00 Test Item Value Reference Range Interpretation Comments AG HEPATITIS B SURFACE (test code = NEGATIVE NONREACTIVE HBSAG) HIV 12 AB [id number] 18:16:00 Test Item Value Reference Range Interpretation Comments HIV 1 2 COMBO AG/AB SCREEN AB/AG NON REACTIVE NONREACTIVE (test code = [id number]) HEPATITIS B SURF AB, [id number] 17:51:00 Test Item Value Reference Range Interpretation Comments HEPATITIS B SURF AB, QUANT (test code mIU/mL = HBSABQ) AG HEPATITIS B [id number] 17:51:00 Test Item Value Reference Range Interpretation Comments AG HEPATITIS B SURFACE (test code = NEGATIVE NONREACTIVE HBSAG) HIV 12 AB [id number] 17:51:00 Test Item Value Reference Range Interpretation Comments HIV 1 2 COMBO AG/AB SCREEN AB/AG NON REACTIVE NONREACTIVE (test code = [id number]) HEPATITIS B SURF AB, [id number] 17:39:00 Test Item Value Reference Range Interpretation Comments HEPATITIS B SURF AB, QUANT (test code mIU/mL = HBSABQ) AG HEPATITIS B [id number] 17:39:00 Test Item Value Reference Range Interpretation Comments AG HEPATITIS B SURFACE (test code = NEGATIVE NONREACTIVE HBSAG) HIV 12 AB [id number] 17:39:00 Test Item Value Reference Range Interpretation Comments HIV 1 2 COMBO AG/AB SCREEN (test code = NONREACTIVE [id number]) GLUCOSE BEDSIDE [id number] 12:00:00 Test Item Value Reference Range Interpretation Comments GLUCOSE BEDSIDE TESTING (test code 136 MG/DL 60-99 H = GLUBED) GLUCOSE BEDSIDE [id number] 21:08:00 Test Item Value Reference Range Interpretation Comments GLUCOSE BEDSIDE TESTING (test code = 84 MG/DL 60-99 N GLUBED) BASIC METABOLIC [id number] 16:40:00 Test Item Value Reference Range Interpretation [...] 9.0 MG/DL 8.4-10.2 N CA) HCG SERUM [id number] 16:40:00 Test Item Value Reference Range Interpretation Comments HCG SERUM QUAL (test code = HCGQL) NEGATIVE NEGATIVE A PROTHROMBIN [id number] 16:32:00 Test Item Value Reference Range Interpretation [...] sunshine embolism. 3.0 - 4.5 Comments to Lens Assistant: PREOPPTT [id number] 16:32:00 Test Item Value Reference Range Interpretation Comments PTT ACTIVATED (test code = APTT) 30.3 SECONDS 22.0-33.0 N Comments to Lens Assistant: PREOPBASIC METABOLIC [id number] 16:32:00 Test Item Value Reference Range Interpretation [...] code = CA) MG/DL 8.7-9.7 HCG SERUM [id number] 16:32:00 Test Item Value Reference Range Interpretation Comments HCG SERUM QUAL (test code = HCGQL) NEGATIVE NEGATIVE A BASIC METABOLIC [id number] 16:31:00 Test Item Value Reference Range Interpretation [...] code = CA) MG/DL 8.7-9.7 HCG SERUM [id number] 16:31:00 Test Item Value Reference Range Interpretation Comments HCG SERUM QUAL (test code = HCGQL) NEGATIVE CBC W/AUTO [id number] 16:25:00 Test Item Value Reference Range Interpretation [...] 0.00 K/mm3 0.0-0.1 N NRBC#) GLUCOSE BEDSIDE [id number] 18:41:00 Test Item Value Reference Range Interpretation Comments GLUCOSE BEDSIDE TESTING (test code = 83 MG/DL 60-99 N GLUBED) BASIC METABOLIC [id number] 15:04:00 Test Item Value Reference Range Interpretation [...] 9.1 MG/DL 8.4-10.2 N CA) BASIC METABOLIC [id number] 15:00:00 Test Item Value Reference Range Interpretation [...] code = CA) MG/DL 8.7-9.7 HCG SERUM [id number] 14:59:00 Test Item Value Reference Range Interpretation Comments HCG SERUM QUAL (test code = HCGQL) NEGATIVE NEGATIVE A PROTHROMBIN [id number] 14:56:00 Test Item Value Reference Range Interpretation [...] syste sunshine embolism. 3.0 - 4.5 PTT [id number] 14:56:00 Test Item Value Reference Range Interpretation Comments PTT ACTIVATED (test code = APTT) 27.9 SECONDS 22.0-33.0 N CBC W/AUTO [id number] 14:43:00 Test Item Value Reference Range Interpretation [...] N NRBC#) RAD, CHEST, 1 VIEW, NON [id number] 11:27:00Reason for exam:->r/o pneumoniaShould this be performed [...] MDReport Verified Date/Time: 07/18/2019 11:27:35 Reading Location: [facility] Reading Room POCT-GLUCOSE [id number] 08:34:00 Test Item Value Reference Range Interpretation Comments POC-GLUCOSE METER 126 mg/dL 70-110 H : TESTED A T [facility] 6720 (BEAKER) (test code = [place], 1538) [address]: Shank Sorter/Techni tammy ID = [id number] for Baldomero Carney BASIC METABOLIC [id number] 06:56:00 Test Item Value Reference Range Interpretation [...] S NOT APPLICABLE FOR DIALYSIS PATIEN TS. [id number] 06:45:00 Test Item Value Reference Range Interpretation Comments PHOSPHORUS (BEAKER) (test code = 4.6 mg/dL 2.3-4.7 604) [id number] 06:45:00 Test Item Value Reference Range Interpretation Comments MAGNESIUM (BEAKER) (test code = 2.0 mg/dL 1.6-2.6 627) CBC W/PLT COUNT & AUTO [id number] 05:35:00 Test Item Value Reference Range Interpretation [...] PERCENT (BEAKER) (test code = 2801) PROTHROMBIN [id number] 05:24:00 Test Item Value Reference Range Interpretation [...] is2.5-3.5 for patients wiht mechanical heart valves.POCT-GLUCOSE [id number] 21:08:00 Test Item Value Reference Range Interpretation Comments POC-GLUCOSE METER 191 mg/dL 70-110 H : TESTED A T [facility] 6720 (BEAKER) (test code = [facility], 1538) [address]: Shank Sorter/Techni tammy ID = [id number] for Keith Quintero POCT-GLUCOSE [id number] 17:20:00 Test Item Value Reference Range Interpretation Comments POC-GLUCOSE METER 168 mg/dL 70-110 H : TESTED A T [facility] 6720 (BEAKER) (test code = [facility], 1538) [address]: Shank Sorter/Techni tammy ID = [id number] for HU NT, MAVIS POCT-GLUCOSE [id number] 12:49:00 Test Item Value Reference Range Interpretation Comments POC-GLUCOSE METER 221 mg/dL 70-110 H : TESTED A T [facility] 6720 (BEAKER) (test code = [facility], 1538) [address]: Shank Sorter/Techni tammy ID = [id number] for HU NT, MAVIS SCREEN, [id number] 11:54:00 Test Item Value Reference Range Interpretation Comments TEST URINE (BEAKER) (test Negative code = 583) POCT-GLUCOSE [id number] 09:11:00 Test Item Value Reference Range Interpretation Comments POC-GLUCOSE METER 112 mg/dL 70-110 H : TESTED A T [facility] 6720 (BEAKER) (test code = [facility], 1538) [address]: Shank Sorter/Techni tammy ID = [id number] for MAVIS GARRIDO BASIC METABOLIC [id number] 06:50:00 Test Item Value Reference Range Interpretation [...] S NOT APPLICABLE FOR DIALYSIS PATIEN TS. [id number] 06:38:00 Test Item Value Reference Range Interpretation Comments PHOSPHORUS (BEAKER) (test code = 3.9 mg/dL 2.3-4.7 604) [id number] 06:38:00 Test Item Value Reference Range Interpretation Comments MAGNESIUM (BEAKER) (test code = 1.9 mg/dL 1.6-2.6 627) PROTHROMBIN [id number] 06:12:00 Test Item Value Reference Range Interpretation [...] mechanical heart valves.CBC W/PLT COUNT & AUTO [id number] 06:06:00 Test Item Value Reference Range Interpretation [...] 0-1 PERCENT (BEAKER) (test code = 2801) [id number] 04:27:00 Test Item Value Reference Range Interpretation Comments RPR SCREEN (TAINA) (test code = Nonreactive Nonreactive 420) MR, MRA, BRAIN, WITHOUT [id number] 03:28:00Reason for exam:- >StrokeWhat is the patient's [...] 07/17/2019 03:28:33 MR, MRA, NECK, WITHOUT IV [id number] 03:28:00FINAL REPORT MR, BRAIN, WITHOUT CONTRAST, MR, [...] Verified Date/Time: 07/17/2019 03:28:33 MR, BRAIN, WITHOUT [id number] 03:28:00 Reason for exam:->StrokeWhat is the patient's [...] Yg Ortiz MDReport Verified Date/Time: 07/17/2019 03:28:33 POCT-GLUCOSE [id number] 21:16:00 Test Item Value Reference Range Interpretation Comments POC-GLUCOSE METER 143 mg/dL 70-110 H : TESTED A T [facility] 6720 (BEAKER) (test code = [facility], 1538) [address]: Shank Sorter/Techni tammy ID = [id number] for JANELL GEORGE POCT-GLUCOSE [id number] 17:33:00 Test Item Value Reference Range Interpretation Comments POC-GLUCOSE METER 108 mg/dL 70-110 : TESTED A T [facility] 6720 (BEAKER) (test code = [facility], 1538) [address]: Shank Sorter/Techni tammy ID = [id number] for BETSEY AVELINO TAVON JJ POCT-GLUCOSE [id number] 17:25:00 Test Item Value Reference Range Interpretation Comments POC-GLUCOSE METER 155 mg/dL 70-110 H : TESTED A T [facility] 6720 (BEAKER) (test code = [facility], 1538) [address]: Shank Sorter/Techni tammy ID = [id number] for SIMON CHO HEPATITIS B SURFACE [id number] 14:30:00 Test Item Value Reference Range Interpretation Comments HEPATITIS B SURFACE ANTIGEN (2) Nonreactive Nonreactive (BEAKER) (test code = 2585) POCT-GLUCOSE [id number] 12:17:00 Test Item Value Reference Range Interpretation Comments POC-GLUCOSE METER 146 mg/dL 70-110 H : TESTED A T [facility] 6720 (BEAKER) (test code = [facility], 1538) [address]: Shank Sorter/Techni tammy ID = [id number] for MAVIS GARRIDO BASIC METABOLIC [id number] 09:26:00 Test Item Value Reference Range Interpretation [...] NOT APPLICABLE FOR DIALYSIS PATIEN TS. POCT-GLUCOSE [id number] 08:27:00 Test Item Value Reference Range Interpretation Comments POC-GLUCOSE METER 106 mg/dL 70-110 : TESTED A T [facility] 6720 (BEAKER) (test code = [place] [facility], 1538) [address]: Shank Sorter/Techni tammy ID = [id number] for SIMON CHO POCT-GLUCOSE [id number] 07:46:00 Test Item Value Reference Range Interpretation Comments POC-GLUCOSE METER 171 mg/dL 70-110 H : TESTED A T [facility] 6720 ([facility]) (test code [facility], = 1538) [address]: Shank Sorter/Techni tammy ID = [id number] for YASMINE VO RAD, CHEST, 1 VIEW, NON [id number] 07:36:00Reason for exam:- >baselineShould this be performed [...] MDReport Verified Date/Time: 07/16/2019 07:36:01 Reading Location: [facility] B1 C013Y CT Body Reading Room HEMOGLOBIN [id number] 06:42:00 Test Item Value Reference Range Interpretation Comments HEMOGLOBIN A1C (BEAKER) (test code = 9.5 % 4.3-6.1 H 368) BASIC METABOLIC [id number] 06:27:00 Test Item Value Reference Range Interpretation [...] NOT APPLICABLE FOR DIALYSIS PATIEN TS. HIV-1 ANTIGEN WITH HIV-1/2 [id number] 05:52:00 Test Item Value Reference Range Interpretation Comments HIV-1 ANTIGEN WITH HIV 1\\T\\2 Nonreactive Nonreactive ANTIBODY (2) (BEAKER) (test code = 2586) POCT-GLUCOSE [id number] 05:38:00 Test Item Value Reference Range Interpretation Comments POC-GLUCOSE METER 420 mg/dL 70-110 HH : Notified RN/MD: TESTED (BEAKER) (test code AT [facility] [address] = 1538) [place], [address]: Shank Sorter/Techni tammy ID = [id number] for YASMINE VO TSH/FREE T4 IF [id number] 05:11:00 Test Item Value Reference Range Interpretation Comments THYROID STIMULATING HORMONE 0.87 uIU/mL 0.35-4.94 (BEAKER) (test code = 772) VITAMIN B12 AND [id number] 05:11:00 Test Item Value Reference Range Interpretation Comments VITAMIN B12 (BEAKER) (test code = 525 pg/mL 213-816 774) FOLATE (BEAKER) (test code = 362) 6.5 ng/mL >=7.0 L BASIC METABOLIC [id number] 04:57:00 Test Item Value Reference Range Interpretation [...] S NOT APPLICABLE FOR DIALYSIS PATIEN TS. [id number] 04:47:00 Test Item Value Reference Range Interpretation Comments PHOSPHORUS (BEAKER) (test code = 5.5 mg/dL 2.3-4.7 H 604) [id number] 04:47:00 Test Item Value Reference Range Interpretation Comments MAGNESIUM (BEAKER) (test code = 2.0 mg/dL 1.6-2.6 627) LIPID [id number] 04:47:00 Test Item Value Reference Range Interpretation [...] 130-159 High 160-189 Very High >=190HEPATIC FUNCTION [id number] 04:47:00 Test Item Value Reference Range Interpretation [...] = 99 U/L 6-55 H 347) PROTHROMBIN [id number] 04:11:00 Test Item Value Reference Range Interpretation [...] mechanical heart valves.CBC W/PLT COUNT & AUTO [id number] 04:03:00 Test Item Value Reference Range Interpretation [...] 417) IMMATURE GRANULOCYTES-RELATIVE 0 % 0-1 PERCENT ([facility]) (test code = 2801) POCT-GLUCOSE [id number] 03:47:00 Test Item Value Reference Range Interpretation Comments POC-GLUCOSE METER > mg/dL 70-110 HH : Notified RN/MD: TESTED ([facility]) (test code = [facility] [facility] [place] [address]: Shank Sorter/Techni tammy ID = [id number] for SYLVIA JONES FACTOR 5 LEIDEN PCR (THROMBOTIC RISK)2017-03-24 19:24:00 Test Item Value Reference Range Interpretation Comments FACTOR V LEIDEN Negative for the R506Q ([facility]) (test code = (Factor V Leiden) 718) mutation [id number] Martínez Wang MD ([facility]) (test code = (electronic signature) 5844) This test is a genotyping assay which [...] was developed and its performance characteristics [facility], Section of Molecular Pathology. It has not been cleared or approved by the U.S. Food and Drug Administration (FDA), since FDA approval is not requ ired for clinical use of the test. Validation was done as required by the Clinical Laboratory Improvement Amendments of 1988.POCT-GLUCOSE [id number] 07:28:00 Test Item Value Reference Range Interpretation Comments POC-GLUCOSE METER 200 mg/dL 70-110 H TESTED AT [facility] 6720 ([facility]) (test code = [facility] 1538) [address] POCT-GLUCOSE [id number] 21:18:00 Test Item Value Reference Range Interpretation Comments POC-GLUCOSE METER 211 mg/dL 70-110 H TESTED AT [facility] 6720 ([facility]) (test code = [facility] 1538) [address] PROTEIN, RANDOM [id number] 19:43:00 Test Item Value Reference Range Interpretation Comments PROTEIN, URINE ([facility]) (test code 286 mg/dL 0-14 H = 1569) CREATININE, RANDOM [id number] 18:27:00 Test Item Value Reference Range Interpretation [...] Normal Hexagonal (BEAKER) (test code = Phospholipid 828371) [id number] Martínez Wang MD ([facility]) (test code = (electronic 6580) signature) DRVV SCREEN RATIO 0.84 <1.20 (BEAKER) (test code = 2707) Effective 12/20/2013: Test Method ChangeDRVV Screen Ratio, DRVV 1/1 Screen Ratio, DRVV Confirm Ratio,DRVV Normalized Ratio Reference Range: <1.2Protime Reference Range ChangeNew: 11.7-14.7 Previous: 9.8-12.0PTT Reference Range ChangeNew: 22.5-36.0 Previous: 25.8-34.5URINE [id number] 11:40:00 Test Item Value Reference Range Interpretation Comments CULTURE (BEAKER) (test 20-29,000 col/mL skin code = 1095) lei POCT-GLUCOSE [id number] 08:33:00 Test Item Value Reference Range Interpretation Comments POC-GLUCOSE METER 293 mg/dL 70-110 H TESTED AT [facility] 6720 ([employer]) (test code = [place] 1532) [address] VITAMIN D, 91-[id number] 07:49:00 Test Item Value Reference Range Interpretation Comments VITAMIN D 25-OH (BEAKER) (test code = < ng/mL 13.0-47.8 L 6864) CBC W/PLT COUNT & AUTO [id number] 05:59:00 Test Item Value Reference Range Interpretation [...] (BEAKER) (test code = 2801) BASIC METABOLIC [id number] 05:38:00 Test Item Value Reference Range Interpretation [...] S NOT APPLICABLE FOR DIALYSIS PATIEN TS. [id number] 05:37:00 Test Item Value Reference Range Interpretation Comments PHOSPHORUS (BEAKER) (test code = 4.1 mg/dL 2.3-4.7 604) [id number] 05:37:00 Test Item Value Reference Range Interpretation Comments MAGNESIUM (BEAKER) (test code = 1.7 mg/dL 1.6-2.6 627) PTH, [id number] 05:34:00 Test Item Value Reference Range Interpretation Comments PARATHYROID HORMONE INTACT 57.2 pg/mL 8.5-72.5 (BEAKER) (test code = 577) Effective 07/04/2014: Reference Range ChangeNew: 8.5-72.5 Previous: 15.0-90.0 CARDIOLIPIN ANTIBODIES, IGG AND [id number] 22:36:00 Test Item Value Reference Range Interpretation Comments ANTICARDIOLIPIN IGG ANTIBODY (BEAKER) < GPL (test code = 712) ANTICARDIOLIPIN IGM ANTIBODY (BEAKER) 2.8 MPL (test code = 713) Anticardiolipin IgG Result Interpretation:NEG: <20 GPL; U/mlPOS: >/=20 GPL; U/mlAnticardiolipin IgM Result Interpretation:NEG: <20 MPL; U/mlPOS: >/=20 MPL; U/mlPOCT-GLUCOSE [id number] 21:25:00 Test Item Value Reference Range Interpretation Comments POC-GLUCOSE METER 198 mg/dL 70-110 H TESTED AT [place] [address] ([facility]) (test code = [facility] 1538) [address] POCT-GLUCOSE [id number] 16:29:00 Test Item Value Reference Range Interpretation Comments POC-GLUCOSE METER 296 mg/dL 70-110 H TESTED AT [place] [address] ([facility]) (test code = [facility] 1538) [address] ANTI-NUCLEAR ANTIBODY (MARY)2017-03-18 15:30:00 Test Item Value Reference Range Interpretation Comments ANTI-NUCLEAR ANTIBODY (MARY) ([facility]) Negative Negative (test code = 418) HEXAGONAL [id number] 13:21:00 Test Item Value Reference Range Interpretation Comments HEXAGONAL PHOSPHOLIPID ([facility]) Negative (test code = 1790) POCT-GLUCOSE [id number] 12:15:00 Test Item Value Reference Range Interpretation Comments POC-GLUCOSE METER 140 mg/dL 70-110 H TESTED AT [place] [address] ([facility]) (test code = [facility] 1538) [address] PROTEIN C [id number] 11:44:00 Test Item Value Reference Range Interpretation Comments PROTEIN C ACTIVITY (BEAKER) (test 155.0 % 70.0-130.0 H code = 582) Effective 12/20/2013: Reference Range Change-Adult onlyNew: 70.0-130.0 Previous: 70.0-140.0See Protein C Antigen.ANTITHROMBIN [id number] 11:43:00 Test Item Value Reference Range Interpretation Comments ANTITHROMBIN III ACTIVITY (BEAKER) 87.0 % 80.0-120.0 (test code = 711) Effective 12/20/2013: Reference Range Change-Adult onlyNew: 80.0-120.0 Previous: 90.0-128.0POCT-GLUCOSE [id number] 08:17:00 Test Item Value Reference Range Interpretation Comments POC-GLUCOSE METER 107 mg/dL 70-110 TESTED AT [facility] 6720 (BEAKER) (test code = [place] 1538) [address] BASIC METABOLIC [id number] 06:32:00 Test Item Value Reference Range Interpretation [...] PATIEN TS. CBC W/PLT COUNT & AUTO [id number] 05:56:00 Test Item Value Reference Range Interpretation [...] PERCENT (BEAKER) (test code = 2801) POCT-GLUCOSE [id number] 04:32:00 Test Item Value Reference Range Interpretation Comments POC-GLUCOSE METER 107 mg/dL 70-110 TESTED AT [place] [address] ([facility]) (test code = [place] 1538) [address] POCT-GLUCOSE [id number] 22:21:00 Test Item Value Reference Range Interpretation Comments POC-GLUCOSE METER 118 mg/dL 70-110 H TESTED AT [place] [address] ([facility]) (test code = [place] 1538) [address] POCT-GLUCOSE [id number] 21:22:00 Test Item Value Reference Range Interpretation Comments POC-GLUCOSE METER 52 mg/dL 70-110 L Notified Isabel Ro MD/TESTED AT ([facility]) (test code = [place] [address] SAYDA 1538) [facility] [address] MICROALBUMIN, RANDOM [id number] 17:57:00 Test Item Value Reference Range Interpretation Comments MICROALBUMIN URINE (BEAKER) (test > mg/dL code = 1794) Reference Range: No NormalsURINALYSIS W/ [id number] 17:36:00 Test Item Value Reference Range Interpretation [...] 516) SOURCE(BEAKER) (test code = Urine, Voided 2129) SCREEN, [id number] 17:36:00 Test Item Value Reference Range Interpretation Comments TEST URINE (BEAKER) (test Negative code = 583) CREATININE, RANDOM [id number] 17:35:00 Test Item Value Reference Range Interpretation Comments CREATININE URINE (BEAKER) (test 33.9 mg/dL code = 375) Reference Range: No NormalsSODIUM, RANDOM [id number] 17:35:00 Test Item Value Reference Range Interpretation Comments SODIUM URINE (BEAKER) (test code = 63 meq/L 243) Reference Range: No NormalsPOCT-GLUCOSE [id number] 17:34:00 Test Item Value Reference Range Interpretation Comments POC-GLUCOSE METER 118 mg/dL 70-110 H TESTED AT [place] [address] ([facility]) [facility] 1538[facility] [address] POCT-GLUCOSE [id number] 13:28:00 Test Item Value Reference Range Interpretation Comments POC-GLUCOSE METER 71 mg/dL 70-110 TESTED AT [place] [address] ([facility]) (test code = [facility] [address] 1538) POCT-GLUCOSE [id number] 10:37:00 Test Item Value Reference Range Interpretation Comments POC-GLUCOSE METER 144 mg/dL 70-110 H TESTED AT [place] [address] ([facility]) (test code = [facility] 1538) [id number] POCT-GLUCOSE [id number] 07:18:00 Test Item Value Reference Range Interpretation Comments POC-GLUCOSE METER 60 mg/dL 70-110 L TESTED AT [place] [address] ([facility]) (test code = [facility] [address] 1538) CBC W/PLT COUNT & AUTO [id number] 05:51:00 Test Item Value Reference Range Interpretation Comments WHITE BLOOD CELL COUNT (AKER) 11.4 K/ L 3.5-10.5 H (test code = 775) RED BLOOD CELL COUNT ([facility]) 3.81 M/ L 3.93-5.22 L (test code = 761) HEMOGLOBIN (BEAKER) (test code = 11.6 GM/DL 11.2-15.7 410) HEMATOCRIT (AKER) (test code = 34.5 % 34.1-44.9 411) MEAN CORPUSCULAR VOLUME (BEAKER) 90.6 fL 79.4-94.8 (test code = 753) MEAN CORPUSCULAR HEMOGLOBIN 30.4 pg 25.6-32.2 (BEAKER) (test code = 751) MEAN CORPUSCULAR HEMOGLOBIN CONC 33.6 GM/DL 32.2-35.5 (AKER) (test code = 752) [...] (BEAKER) (test code = 2801) BASIC METABOLIC [id number] 05:51:00 Test Item Value Reference Range Interpretation [...] NOT APPLICABLE FOR DIALYSIS PATIEN TS. POCT-GLUCOSE [id number] 21:41:00 Test Item Value Reference Range Interpretation Comments POC-GLUCOSE METER 287 mg/dL 70-110 H TESTED AT [facility] 6720 (BEAKER) (test code = [place] 1538) [address] BASIC METABOLIC [id number] 12:35:00 Test Item Value Reference Range Interpretation [...] report . CBC W/PLT COUNT & AUTO [id number] 04:54:00 Test Item Value Reference Range Interpretation [...] 0-1 PERCENT (BEAKER) (test code = 2801) [id number] 20:17:00 Test Item Value Reference Range Interpretation Comments RPR SCREEN (BEAKER) (test code = Nonreactive Nonreactive 420) POCT-GLUCOSE [id number] 18:09:00 Test Item Value Reference Range Interpretation Comments POC-GLUCOSE METER 215 mg/dL 70-110 H TESTED AT [facility] 6720 (BEAKER) (test code = [place] 1538) [id number] CBC W/PLT COUNT & AUTO [id number] 11:54:00 Test Item Value Reference Range Interpretation [...] (BEAKER) (test code = Normal 762) SEDIMENTATION [id number] 10:27:00 Test Item Value Reference Range Interpretation Comments SEDIMENTATION RATE, ERYTHROCYTE 79 mm/HR 0-20 H (BEAKER) (test code = 766) HEMOGLOBIN [id number] 09:33:00 Test Item Value Reference Range Interpretation Comments HEMOGLOBIN A1C (BEAKER) (test code = 9.8 % 4.3-6.1 H 368) VITAMIN [id number] 09:14:00 Test Item Value Reference Range Interpretation Comments VITAMIN B12 (BEAKER) (test code = 1790 pg/mL 213-816 H 774) TSH/FREE T4 IF [id number] 09:14:00 Test Item Value Reference Range Interpretation Comments THYROID STIMULATING HORMONE 1.08 uIU/mL 0.35-4.94 (BEAKER) (test code = 772) BASIC METABOLIC [id number] 08:52:00 Test Item Value Reference Range Interpretation [...] DATA TO CALCULA TE ESTIMATED GFR. FastingLIPID [id number] 08:51:00 Test Item Value Reference Range Interpretation [...] High 160-189 Very High >=190 FastingHCG, QUANTITATIVE, [id number] 01:43:00 Test Item Value Reference Range Interpretation Comments GONADOTROPIN, CHORIONIC (HCG) QUANT < mIU/mL 0-10 (BEAKER) (test code = 649) Non- Females: <10 mIU/mL Females: Gestation Age Reference Range(mIU/mL) 0.2-1 Week 5-50 1-2 Weeks 50-500 2-3 Weeks 100-5,000 3-4Weeks 500-10,000 4-5 Weeks 1,000-50,000 5-6 Weeks 10,000-100,000 6-8 Weeks 15,000-200,000 2-3 Months 10,000-100,000COMPREHENSIVE METABOLIC [id number] 21:57:00 Test Item Value Reference Range Interpretation [...] 358) GLUCOSE RANDOM 285 mg/dL 70-105 H ([facility]) (test code = 652) CALCIUM (BEAKER) 7.9 mg/dL 8.4-10.2 L (test code = 697) AST (SGOT) (BEAKER) 16 U/L 5-34 (test code = 353) ALT (SGPT) (BEAKER) 14 U/L 6-55 (test code = 347) EGFR ([facility]) (test mL/min/1.73 INSUFFIC IENT code = 1092) sq m CLINICAL DATA T O CALCULATE ESTIM ATED GFR. Unit CollectPOCT-GLUCOSE [id number] 21:50:00 Test Item Value Reference Range Interpretation Comments POC-GLUCOSE METER 278 mg/dL 70-110 H TESTED AT [facility] 6772 ([facility]) (test code = [place] [place] 1538) [id number]
[2020-08-01] MEDS ORDERED: BUPIVACAINE 0.25% PF 30 ML VIAL ONE (11:37)
[2020-08-01] MEDS ORDERED: MIDAZOLAM HCL 2 MG/2 ML INJ ONE (11:37)
[2020-08-01] MEDS ORDERED: propofoL 200 MG/20 ML VIAL IV ONE (11:37)
[2020-08-01] MEDS ORDERED: LIDOCAINE 2% MPF 5 ML VIAL ONE (11:38)
[2020-08-01] MEDS ORDERED: FENTANYL CITR 100 MCG/2 ML ONE (11:38)
[2020-08-01] MEDS ORDERED: CEFAZOLIN/SWI 1gm 0 GM/0 ML SYR ONE (11:38)
[2020-08-01] MEDS ORDERED: ONDANSETRON 4 MG/2 ML VIAL ONE (11:39)
[2020-08-01 12:29] LABS: Absolute Lymphocytes (CBC) 0.7 K/uL (0.7-4.9); Basophils % 0.8 % (0-1.3); Hematocrit 31.8 % (36.0-45.0); Lymphocytes % 8.5 % (15.3-44.8); MPV 8.8 fL (7.6-11.3)
[2020-08-01 12:47] LABS: Potassium 5.3 mmol/L (3.5-5.1)
[2020-08-01] MEDS ORDERED: ACETAMINOPHEN 500 MG TAB PO PRN (12:59)
[2020-08-01] MEDS ORDERED: TRAMADOL HCL 50 MG TAB PO PRN (15:00)
[2020-08-01] MEDS ORDERED: ZINC OXIDE TOP PRN (15:00)
[2020-08-01] MEDS ORDERED: CALAMINE TOP PRN (15:00)
[2020-08-01] MEDS ORDERED: [UNRECOGNIZED DRUG - OTHER] TOP PRN (15:00)
[2020-08-01] MEDS ORDERED: HYDROXYZINE HCL 10 MG/5 ML SYRUP UD PO PRN (15:00)
[2020-08-01] MEDS ORDERED: MENTHOL TOP PRN (15:00)
[2020-08-01] MEDS ORDERED: INSULIN 70/30 100 UNITS/ML SQ ONE (15:03)
[2020-08-01] MEDS ORDERED: D50W 25 GM/50 ML SYRINGE IV PRN (15:03)
[2020-08-01] MEDS ORDERED: GLUCAGON 1 MG/VIAL IM PRN (15:03)
[2020-08-01] MEDS: MORPHINE 2 MG/ML SYR IV PRN ×2 (15:21→19:47)
[2020-08-01] MEDS: FUROSEMIDE 40 MG TABLET PO SCH (17:02)
[2020-08-01] MEDS: CALCIUM CARBONATE CHEW 500MG TAB PO SCH (17:02)
[2020-08-01] MEDS: SEVELAMER CARBONATE 800 MG TABLET PO SCH (17:03)
[2020-08-01] MEDS: INSULIN LISPRO 100 UNIT/1 ML SQ SCH (17:03)
[2020-08-01] MEDS ORDERED: HYDRALAZINE HCL 20 MG/ML VIAL IV PRN (17:43)
[2020-08-01 18:00] VITALS: BMI 23.0
[2020-08-01] MEDS: INSULIN -REGULAR HUMAN 50 UNIT/0.5 ML ML SQ SCH (19:51)
[2020-08-01] MEDS: INSULIN GLARGINE 100 UNITS/ML SQ SCH (19:51)
[2020-08-01] MEDS: ATORVASTATIN 20 MG TAB PO SCH (19:55)
[2020-08-01] MEDS ORDERED: CALCITROL 0.25 MCG CAP PO SCH (23:00)
[2020-08-01] MEDS: ONDANSETRON 4 MG/2 ML VIAL IV PRN (23:59)
--- NOTE | 2020-08-02 01:47 | CON ---
Date of Consultation: 08/01/2020 Reason For Consultation: Elevated BUN and creatinine, hyperglycemia, hypertension, end-stage renal disease. History Of Present Illness: This is a 44-year-old female who is known to me from the dialysis with significant past medical history of: 1. End-stage renal disease secondary to diabetes. On dialysis Thursday, Thursday, Thursday. 2. Hypertension, complicated with neuropathy and nephropathy and retinopathy, legally blind. 3. Hyperlipidemia. 4. Hypertension. The patient was in her regular state of health. Patient was brought for debridement and surgery, found to have hyperglycemia. For that reason, Surgery was consulted, and patient was admitted to the hospital. The patient missed her dialysis today. Labs show hyperglycemia, no acidosis, but hyperkalemia. Past Medical History: 1. Diabetes, complicated with neuropathy, retinopathy, and nephropathy. 2. Hypertension. 3. Hyperlipidemia. 4. End-stage renal disease secondary to diabetes, on dialysis Thursday, Thursday, Thursday. 5. Depression. 6. CVA. 7. GERD. Past Surgical History: Cholecystectomy, thyroidectomy, eye surgery, and C- section. Allergies: NO KNOWN DRUG ALLERGIES. Social History: Active smoker, active alcohol. Denies drug abuse. Family History: Positive for diabetes and coronary artery disease, hypertension. Review of Systems: Head and Neck: No red eye. No ear pain. GI: Has nausea. No vomiting. : No polyuria. No dysuria. No hematuria. HOOP PUNCHER: No vaginal discharge. Respiratory: No shortness of breath. Cardiovascular: No chest pain. Endocrine: No polydipsia. Skin: No rash. Neuro: Has neuropathy, legally blind. Musculoskeletal: Has leg pain. Physical Examination: Vital Signs: Blood pressure of 147/65, pulse of 77. Afebrile. Chest: Clear to auscultation. Heart: S1, S2. Systolic murmur. Abdomen: Soft nontender. Extremities: Dressing on the foot. Laboratory Data: WBC 8.3, H and H 10.5/31.8. Sodium 129, potassium 5.3, bicarb 24, BUN 64, creatinine 6.2, blood sugar 528, calcium 9.5. Home Medications: 1. Insulin. 2. Zinc sulfate. 3. Renvela. 4. Tramadol. 5. Gabapentin. 6. Lasix. 7. Plavix. 8. Calcium carbonate. 9. Atorvastatin. 10. Aspirin. Current medications in the hospital: 1. Calcium carbonate. 2. Plavix. 3. Atorvastatin. 4. Aspirin. 5. Hydralazine. 6. Insulin. 7. Morphine. 8. Zoloft. 9. Renvela. 10. Tramadol. Assessment And Plan: 1. End-stage renal disease with hyperkalemia. Patient can be dialyze tomorrow on low potassium bath, and we will follow up the patient. 2. Hyperkalemia. We will dialyze on low potassium bath. 3. Hyponatremia, dilutional, secondary to renal failure, going to be corrected with dialysis. 4. Anemia of chronic kidney disease. Resume LINWOOD. 5. Secondary hyperparathyroid. Continue binder. 6. Diabetic foot. We will follow up with Surgery for debridement. 7. Diabetes, not controlled. We will continue with the sliding scale. Follow up with the hospitalist. Thank you, Dr. Chan for allowing us to participate in the care of your patient. time spend exam the patient face to face , place order , discussed the case with other meat service team member hospitalist and other consulatant 75 min. DEBBIE Voice ID: [id number] Report ID: [id number] DAYANARA
[2020-08-02] MEDS: MORPHINE 2 MG/ML SYR IV PRN ×2 (02:46→20:49)
[2020-08-02] MEDS: ONDANSETRON 4 MG/2 ML VIAL IV PRN ×2 (04:36→11:56)
[2020-08-02 05:55] LABS: Basophils % 0.6 % (0-1.3); Hematocrit 29.6 % (36.0-45.0); Protime INR 0.95
[2020-08-02 06:14] LABS: Albumin 2.4 g/dL (3.4-5.0); Bilirubin Total 0.7 mg/dL (0.2-1.0)
[2020-08-02 06:18] LABS: Potassium 6.8 mmol/L (3.5-5.1)
[2020-08-02] MEDS ORDERED: ALBUMIN HUMAN 25% 50 ML IV PRN (06:26)
[2020-08-02] MEDS: INSULIN -REGULAR HUMAN 50 UNIT/0.5 ML ML SQ SCH ×4 (07:30→20:44)
[2020-08-02] MEDS: INSULIN LISPRO 100 UNIT/1 ML SQ SCH ×3 (07:30→16:30)
[2020-08-02] MEDS: SEVELAMER CARBONATE 800 MG TABLET PO SCH ×3 (08:00→17:32)
[2020-08-02] MEDS: CALCIUM CARBONATE CHEW 500MG TAB PO SCH (08:00)
[2020-08-02] MEDS: FOLIC ACID 1 MG TABLET PO SCH (09:00)
[2020-08-02] MEDS: FUROSEMIDE 40 MG TABLET PO SCH ×2 (09:00→17:32)
[2020-08-02] MEDS: SERTRALINE HCL 100 MG TAB PO SCH (09:00)
[2020-08-02] MEDS: CLOPIDOGREL 75 MG TABLET PO SCH (09:00)
[2020-08-02] MEDS: ASPIRIN 81 MG CHEWABLE TABLET PO SCH (09:00)
--- NOTE | 2020-08-02 09:13 | P.HP ---
Certification for Inpatient Patient admitted to: Inpatient With expected LOS: >2 Midnights Patient will require the following post-hospital care: None Practitioner: I am a practitioner with admitting privileges, knowledge of patient current condition, hospital course, and medical plan of care. Services: Services provided to patient in accordance with Admission requirements found in Title 42 Section 412.3 of the Code of Federal Regulations Patient History Date of Service: 08/01/20 Reason for admission: Hyperosmolar nonketotic syndrome/diabetic foot ulcer History of Present Illness: Patient is a 44-year-old female who was in the same-day surgery area to get diabetic foot ulcer debridement. Patient has a lot of drainage coming from the foot and has had poorly-controlled blood sugars. Patient did not take her insulin for the same-day procedure and her blood sugars are greater than 500. At this time her surgery is going to be delayed and we were half to admit her to the hospital for hyperosmolar nonketotic syndrome. She is a end-stage renal disease patient as well and we will Consult Nephrology. Patient will also be seen by General surgery for debridement. Will check a hemoglobin A1c during her hospital stay and check blood cultures. Check a procalcitonin level. At this time, patient will be admitted to the hospital for further evaluation. Allergies No Known Allergies Allergy (Verified 07/27/20 12:45) Home Medications: Aspirin 81 mg PO DAILY 12/23/19 Gabapentin 100 mg PO M,W,F 12/23/19 Sertraline [Zoloft*] 100 mg PO DAILY 12/23/19 Clopidogrel Bisulfate [Plavix*] 75 mg PO DAILY #30 tablet 12/26/19 Folic Acid 1 mg PO DAILY #30 tablet 12/26/19 Atorvastatin Calcium [Lipitor] 20 mg PO BEDTIME 02/09/20 Calcium Carbonate [Tums Regular*] 2 tab PO TIDWM 06/26/20 Furosemide [Lasix*] 40 mg PO BID 06/26/20 Hydroxyzine HCl [Atarax] 10 mg PO TID PRN 06/26/20 Insulin Glargine,Hum.rec.anlog [Yanick Choi Solostar] 20 unit SQ BEDTIME 06/26/20 Insulin Lispro [Humalog] 25 unit SQ TID 06/26/20 Sevelamer Carbonate [Renvela*] 800 mg PO TIDWM 06/26/20 Tramadol HCl [Ultram] 50 mg PO DAILY PRN 06/26/20 Zinc Oxide/Menthol/Calamine [Lantiseptic Multi-Purpose Oint] 113 gm TP DAILY PRN 06/26/20 - Past Medical/Surgical History Has patient received pneumonia vaccine in the past: No Diabetic: Yes -: ESRD -: HPN -: Thyroid cancer -: Neuropathy -: Blind both eyes -: DM -: Neuropathy -: GERD -: ESRD -: hyperlipidemia -: CVA x3 -: Cholecystectomy -: Thyroidectomy -: Multiple eye surgeries -: -: HD graph left arm -: right great toe amputation Psychosocial/ Personal History: The patient is . She has 1 child. She is disabled. - Family History Father Medical History: Heart disease, Hypertension, Other (see notes) Notes: thyroid problems Mother Medical History: Diabetes, Kidney disease - Social History Smoking Status: Current every day smoker Alcohol use: No CD- Drugs: No Caffeine use: No Place of Residence: Home Review of Systems 10-point ROS is otherwise unremarkable Physical Examination - Vital Signs Temperature: 97.8 F Blood Pressure: 116/54 Pulse: 66 Respirations: 16 Pulse Ox (%): 97 - Physical Exam General: Alert, In no apparent distress, Oriented x2 HEENT: Atraumatic, PERRLA, Mucous membr. moist/pink, EOMI, Sclerae nonicteric Neck: Supple, 2+ carotid pulse no bruit, No LAD, Without JVD or thyroid abnormality Respiratory: Clear to auscultation bilaterally, Normal air movement Cardiovascular: Regular rate/rhythm, Normal S1 S2, No murmurs Gastrointestinal: Normal bowel sounds, Soft and benign, Non-distended, No t enderness Musculoskeletal: No clubbing, No swelling, Erythema, Tenderness Integumentary: Tenderness/swelling, Erythema, Warmth Neurological: Normal speech, Normal tone, Sensation intact, Cranial nerves 3-12 intact, Normal affect, Abnormal gait, Abnormal strength Lymphatics: No axilla or inguinal lymphadenopathy - Studies Laboratory Data (last 24 hrs) 08/02/20 05:28: Sodium 131 L, Potassium 6.8 H*, BUN 76 H, Creatinine 6.89 H*, Glucose 85, Phosphorus 7.0 H, Total Bilirubin 0.7, AST 109 H, ALT 18, Alkaline Phosphatase 560 H 08/02/20 05:28: PT 11.2, INR 0.95, APTT 28.6 08/02/20 05:28: WBC 10.5 D, Hgb 9.6 L, Hct 29.6 L, Plt Count 250 08/01/20 17:47: Glucose 448 H* 08/01/20 12:02: Sodium 129 L, Potassium 5.3 H, BUN 64 H, Creatinine 6.25 H*, Glucose 528 H* 08/01/20 12:02: WBC 8.3, Hgb 10.5 L, Hct 31.8 L, Plt Count 244 08/01/20 11:41: Glucose Cancelled Assessment & Plan - Problems (Diagnosis) (1) Diabetes mellitus with nonketotic hyperosmolarity Current Visit: Yes Status: Acute (2) Uncontrolled diabetes mellitus Current Visit: Yes Status: Acute (3) ESRD (end stage renal disease) Current Visit: Yes Status: Acute (4) Diabetic foot ulcer Current Visit: Yes Status: Acute (5) History of CVA (cerebrovascular accident) Current Visit: No Status: Acute (6) Obesity Current Visit: No Status: Acute (7) Stage II pressure ulcer of left buttock Current Visit: No Status: Acute (8) COPD (chronic obstructive pulmonary disease) Onset Date: 03/03/17 Current Visit: No Status: Chronic Qualifiers: (9) CVA (cerebral vascular accident) Onset Date: 03/09/17 Current Visit: No Status: Chronic Qualifiers: (10) Depression with anxiety Onset Date: 03/03/17 Current Visit: No Status: Chronic - Plan 1. Gently hydration 2. Insulin daily 3. Accu-Cheks qACHS 4. Resume diet once anion gap is closed and will resume insulin pump 5. Diabetic education 6. Long-acting insulin 7. Continue with IV antibiotic 8. Continue with local wound care 9. Wound care consultation/surgical consultation 10. A1c 11. Pain control 12. GI and DVT prophylaxis Discharge Plan: Home Plan to discharge in: Greater than 2 days - Advance Directives Does patient have a Living Will: No Does patient have a Durable POA for Healthcare: No - Code Status/Comfort Care Code Status Assessed: Yes Code Status: Full Code Critical Care: No Time Spent Managing PTS Care (In Minutes): 45
[2020-08-02] MEDS: EPOETIN 4,000 UNIT/ML VIAL IV SCH (09:15)
[2020-08-02] MEDS ORDERED: D50W 25 GM/50 ML VIAL IV PRN (11:45)
--- NOTE | 2020-08-02 11:48 | PN ---
Date of Progress Note: 08/02/2020 Subjective: The patient was admitted for debridement of her right foot wound after big toe amputation. The patient yesterday found to have hyperglycemia. The patient was taken today for dialysis, found to have severe hyperkalemia above 6. Objective: Vital Signs: When I saw the patient, blood pressure 116/54, pulse of 66, afebrile. Chest: Clear to auscultation. Heart: S1 and S2. Systolic murmur. Abdomen: Soft, nontender. Extremities: No edema. Dressing on the right foot. Neuro: Alert. No focality. The patient legally blind. Laboratory Data: H and H 9.6/29.6. Sodium 131, potassium 6.8, bicarb 25, BUN 76, creatinine 6.8, calcium 9.1, phos of 7, albumin 2.4, corrected calcium is 10.5. Current Medications: The patient on include; 1. Aspirin. 2. Atarax. 3. Plavix. 4. Epogen 4000. 5. Calcium carbonate. 6. Atorvastatin. 7. Tylenol. 8. Zoloft. 9. Gabapentin. 10. Lasix 40 b.i.d. 11. Renvela 800 with each meal. 12. Tramadol. 13. Morphine. 14. Calcitriol 0.25 every other day. Assessment/plan: 1. End-stage renal disease with hyperkalemia. The patient is going to be dialyzed on low-potassium bath. 2. Hypertension, controlled, optimal. Continue current medication. 3. Hyperkalemia. Going to be treated on dialysis. 4. Over volume. The patient is going to be challenged. 5. Hyperglycemia, as by primary. 6. Secondary hyperparathyroid with the presence of hyperphosphatemia and hypercalcemia. I am going to discontinue all calcium based binder including calcium carbonate. We will increase Renvela to 1600 with each meal. Continue calcitriol. 7. Anemia of chronic kidney disease. Continue LIN[place]. 8. Foot infection for debridement. The patient cleared from the renal standpoint after dialysis to proceed with the surgery. time spend exam the patient face to face , place order , discussed the case with other hospitality team member hospitalist and other consulatant 45 min. CASSIE/KERI Voice ID: [id number] Report ID: [id number] MTDD
--- NOTE | 2020-08-02 12:23 | PN ---
Date of Progress Note: 08/02/2020 Subjective: The patient was seen on dialysis. Objective: Vital Signs: Blood pressure 115/70, pulse of 88. Chest: Clear to auscultation. Heart: S1, S2. Systolic murmur. Abdomen: Soft, nontender. Extremities: No edema. Dressing on the right foot, right big toe amputation. Neurologic: Alert. No focality. The patient is legally blind. Laboratory Data: Potassium 6.8, BUN 76, creatinine 6.8. Sodium 131, H and H 9.6/29.6. Medications: Current medications the patient is on includes aspirin, Atarax, albumin, Plavix, Epogen, atorvastatin, hydralazine, Zoloft, gabapentin, Lasix 40 b.i.d., Renvela 800 q.meals, calcium carbonate with each meal, tramadol, morphine. Assessment And Plan: 1. Hypercalcemia. I am going to go ahead and change her potassium bath from 2K to 1 K. The patient finished 2 hours of 2K. We will switch to 1 K in the last 2 hours. 2. I am going to increase the blood flow to 400 and we will continue to challenge the patient of 3 L. 3. Over volume. We will continue to challenge the patient. 4. Elevated BUN. We will increase her blood flow to 400. 5. Hyperkalemia, as above. The patient is going to be switched to 1 K bath. 6. Anemia of chronic kidney disease. Continue LIN[place]. 7. Secondary hyperparathyroidism with elevation in calcium. Discontinue calcium carbonate. Continue calcitriol. Increase her Renvela to 1600 with each meal. time spend exam the patient face to face , place order , discussed the case with other steam pipe fitter hospitalist and other consulatant 45 min. DEBBIE Voice ID: [id number] Report ID: [id number] DAYANARA
[2020-08-02] MEDS ORDERED: propofoL 200 MG/20 ML VIAL IV ONE (12:27)
[2020-08-02] MEDS ORDERED: FENTANYL CITR 100 MCG/2 ML ONE (12:27)
[2020-08-02] MEDS ORDERED: MIDAZOLAM HCL 2 MG/2 ML INJ ONE (12:27)
[2020-08-02] MEDS ORDERED: LIDOCAINE 2% MPF 5 ML VIAL ONE (12:27)
[2020-08-02] MEDS ORDERED: NA CHLORIDE 0.9% 1,000 ML ONE (12:29)
[2020-08-02] MEDS ORDERED: CEFAZOLIN/SWI 1gm 1 GM/10 ML SYR ONE (12:46)
[2020-08-02] MEDS ORDERED: ONDANSETRON 4 MG/2 ML VIAL ONE (13:16)
--- NOTE | 2020-08-02 13:47 | CON ---
Date of Consultation: 08/01/2020 Brief History Of Present Illness: The patient is a 44-year-old female, known to me from previous maurice ridement of a right infected foot and amputation several months ago. She returns with osteomyelitis of that same said toe as she was noncompliant with followup and postoperative instructions. [facility], ultimately transferred back to my clinic whereby I saw her, evaluated her, sent her for endovascular evaluation. She was found to have significant arterial disease, whic h was corrected with balloon angioplasty and laser ablation to restore arterial flow. She had improv ement of her overall symptoms and as such, she came back to my clinic. She was scheduled for surgery today on 08/01/2020, and ultimately when being seen in the preop but ultimately her blood sugar was found to be greater than 500, as such we opted not to perform surgery. At this point, she was admitt ed to hospital for medical management and we will proceed for surgery on 08/02/2020 if her medical is sues are resolved and blood sugar at a reasonable point. Past Medical History: Significant for end-stage renal disease, hypertension, thyroid cancer, neuropa thy, blindness, diabetes, GERD, ESRD, hyperlipidemia, CVA x3. Past Surgical History: Cholecystectomy, thyroidectomy, multiple eye surgeries, , hemodialys is access placed in the left arm, right great toe amputation as described. Family History: Significant for heart disease, hypertension, diabetes, and ESRD. Social History: She is . She has 1 child. She is disabled. She smokes every day. She den ies alcohol or recreational drug use. Review of Systems: Ten-point review of systems other than HPI, denies. Allergies: NO KNOWN DRUG ALLERGIES. Home Medications: Include aspirin, gabapentin, Zoloft, Plavix, folic acid, atorvastatin, Tums, Lasix , Atarax, Humalog, Renvela, Ultram, zinc oxide ointment. Physical Examination: Vital Signs: At time of my examination were stable at temperature 97.8, blood pressure 116/54, pulse 66, respiratory rate 16, SpO2 97% on room air. General: She is awake, alert, oriented x2. HEENT: Her head is atraumatic. She is blind in both eyes and has discolored sclerae. Neck: Supple without JVD. Chest: Normal expansion and excursion. Cardiovascular: Regular rate and rhythm. Pulmonary: Clear to auscultation bilaterally. Abdomen: Soft, nontender, nondistended. Extremities: Focused examination on the right lower extremity, she continues to have an open bone ex posed on the great toe of the right foot consistent with osteomyelitic changes and necrotic tissue ar ound this, although improved from previous exams after she got revascularized. Laboratory Data: She had a laboratory exam which revealed a white blood cell count of 8.3, hemoglobi n 10.5, hematocrit 31.8, platelet count is 244. Her neutrophils are 78%. Her sodium is 129, potassi um 5.3, chloride 91, carbon dioxide is 24, BUN 64, creatinine was 6.2. Her glucose was over 500. He r calcium was 9.0. Assessment/plan: This is a 44-year-old female, who presents with signs and symptoms of severe hyperg lycemia. 1.Medical management to correct blood sugar and prevent worsening to diabetic ketoacidosis. 2.I will plan for surgery on 08/02/2020, should her blood sugar and medical issues be optimized and she would be ready for surgery. I have explained the risks, benefits, and alternatives of above stat ed plan. The patient agrees as indicated. I will proceed with amputation and debridement of the rig ht great toe and indicated procedures. I explained the risks, benefits, and alternatives of above st ated plan including, but not limited to bleeding, infection, damage to surrounding tissues, need furt her operation and procedure. The patient agrees to proceed as indicated. Thank you for this interesting consult. MANUELITO/KERI Voice ID: [id number] Report ID: [id number]
--- NOTE | 2020-08-02 13:59 | P.OP ---
Preoperative diagnosis: Osteomyelitis of RIGHT foot Great toe to metatarsal bone Postoperative diagnosis: Osteomyelitis of RIGHT foot Great toe to metatarsal bone Primary procedure: amputation of Great toe metatarsal to Cuneiform bone Secondary procedure: Debridement of necrotic tissue including muscle Anesthesia: GETA + Local Estimated blood loss: <10cc Specimen: Metatarsal - fragmented, debridement tissue Findings: Osteoporotic, osteomyleitic metatarsal to cunieform bone Complications: None Drain(s): Other (KORIN negative pressure therapy ) Transferred to: Recovery Room Condition: Good
[2020-08-02 14:27] VITALS: O2SAT 96
--- NOTE | 2020-08-02 14:54 | OP ---
Date of Procedure: 08/02/2020 Surgeon: Tristan Nunes MD, Preoperative Diagnosis: Osteomyelitis of right foot great toe to metatarsal bone. Postoperative Diagnosis: Osteomyelitis of right foot great toe to metatarsal bone. Procedures Performed: 1.Amputation of the right great toe metatarsal to the cuneiform bone. 2.Debridement of necrotic tissue down to muscle. Anesthesia: General endotracheal plus local. Estimated Blood Loss: Less than 10 mL. Specimens: Metatarsal, which was fragmented and debridement tissue. Findings: Osteoporotic, osteomyelitic metatarsal bone to the cuneiform. Complications: None. Drains: KORIN negative pressure wound therapy placed on top of wound. Disposition: The patient was transferred to recovery room in good condition. Procedure In Detail: After informed consent was obtained, the patient was brought to the operating r oom and prepped draped in the usual sterile fashion. After adequate anesthesia was achieved, I made a linear incision overlying the first metatarsal down through necrotic tissue. I then dissected circ umferentially around the metatarsal bone, which was found to be obviously osteoporotic, fractured and osteopenic. There was some infected tissue inferior to this on the flexor surface. I circumferenti ally dissected down to the cuneiform bone and using a periosteal elevator, I pushed the tissue back b eyond this limit. I then opened up the joint space using electrocautery and dissected sharply circum ferentially around the joint space to remove the entire metatarsal. It came out fragmented as the ricardo ne was quite osteopenic and a manipulation of the bone resulted in fragmentation. All these pieces w ere sent off for pathologic examination. All necrotic tissue was then debrided sharply with a combin ation of electrocautery and sharp dissection, mostly on the flexor surface of the metatarsal bone. A fter the necrotic tissue was removed, the area was copiously irrigated multiple times until completel y clear. Hemostasis was achieved with combination of 3-0 Vicryl sutures and electrocautery, primaril y at the subdermal layer. The area was copiously irrigated once again. Hemostasis was achieved. Th e tissue planes were then reapproximated and the wound was closed using a combination of vertical mat tress and simple interrupted 2-0 nylon sutures. A KORIN negative pressure wound therapy dressing was then placed on top and a Coban placed on this. The KORIN was functioning properly at the end of the p rocedure with green light. All counts were correct at the end of the case. The patient tolerated th e procedure well without evidence of complication and transferred to PACU in good condition. All cou nts were correct at the end of the case. MANUELITO/KERI Voice ID: [id number] Report ID: [id number]
[2020-08-02] MEDS: ATORVASTATIN 20 MG TAB PO SCH (20:47)
[2020-08-02] MEDS: INSULIN GLARGINE 100 UNITS/ML SQ SCH (20:47)
[2020-08-03] MEDS: MORPHINE 2 MG/ML SYR IV PRN ×3 (05:10→16:49)
[2020-08-03 06:30] LABS: Absolute Lymphocytes (CBC) 0.9 K/uL (0.7-4.9); Basophils % 0.6 % (0-1.3); Hematocrit 29.5 % (36.0-45.0); Lymphocytes % 5.7 % (15.3-44.8); MPV 8.2 fL (7.6-11.3); RBC Red Blood Cell Count 3.19 M/uL (3.86-4.86)
[2020-08-03 06:49] LABS: Albumin 2.3 g/dL (3.4-5.0); Phosphorus 4.8 mg/dL (2.5-4.9); Potassium 4.3 mmol/L (3.5-5.1)
[2020-08-03] MEDS: INSULIN LISPRO 100 UNIT/1 ML SQ SCH ×3 (07:30→16:30)
[2020-08-03] MEDS: INSULIN -REGULAR HUMAN 50 UNIT/0.5 ML ML SQ SCH ×3 (07:30→16:30)
--- NOTE | 2020-08-03 08:51 | P.PN ---
Subjective Date of Service: 08/02/20 PATIENT SCHEDULED FOR DEBRIDEMENT TODAY. OTHERWISE NO NEW COMPLAINTS. Review of Systems 10-point ROS is otherwise unremarkable Physical Examination - Vital Signs Temperature: 98.3 F Blood Pressure: 114/55 Pulse: 71 Respirations: 18 Pulse Ox (%): 100 - Physical Exam General: Alert, In no apparent distress, Oriented x3 HEENT: Atraumatic, PERRLA, EOMI Neck: Supple, JVD not distended Respiratory: Clear to auscultation bilaterally, Normal air movement Cardiovascular: Regular rate/rhythm, Normal S1 S2, Systolic murmur Gastrointestinal: Normal bowel sounds, Soft and benign, Non-distended, No tenderness Musculoskeletal: Erythema, Tenderness, Warmth Neurological: Sensation intact, Cranial nerves 3-12 intact - Studies Laboratory Data (last 24 hrs) 08/03/20 06:20: Sodium Cancelled, Potassium Cancelled, BUN Cancelled, Creatinine Cancelled, Glucose Cancelled, Phosphorus Cancelled, Magnesium 2.2 08/03/20 06:20: WBC 15.8 H D, Hgb 9.9 L, Hct 29.5 L, Plt Count 280 08/03/20 06:20: Sodium 137, Potassium 4.3, BUN 39 H D, Creatinine 4.87 H D, Glucose 88, Phosphorus 4.8 Medications List Reviewed: Yes Assessment & Plan - Problems (Diagnosis) (1) Diabetes mellitus with nonketotic hyperosmolarity Current Visit: Yes Status: Acute (2) Uncontrolled diabetes mellitus Current Visit: Yes Status: Acute (3) ESRD (end stage renal disease) Current Visit: Yes Status: Acute (4) Diabetic foot ulcer Current Visit: Yes Status: Acute (5) History of CVA (cerebrovascular accident) Current Visit: No Status: Acute (6) Obesity Current Visit: No Status: Acute (7) Stage II pressure ulcer of left buttock Current Visit: No Status: Acute (8) COPD (chronic obstructive pulmonary disease) Onset Date: 03/03/17 Current Visit: No Status: Chronic Qualifiers: (9) CVA (cerebral vascular accident) Onset Date: 03/09/17 Current Visit: No Status: Chronic Qualifiers: (10) Depression with anxiety Onset Date: 03/03/17 Current Visit: No Status: Chronic - Plan 1. HEP-LOCK IV 2. LONG-ACTING INSULIN SCHEDULED ALONG WITH ACCU-CHEKS 3. CONTINUE IV ANTIBIOTIC THERAPY 4. WOUND CARE CONSULTATION Wound care consultation/surgical consultation 5. PAIN CONTROL 6. GI AND DVT PROPHYLAXIS Discharge Plan: Home Plan to discharge in: Greater than 2 days - Advance Directives Does patient have a Living Will: No Does patient have a Durable POA for Healthcare: No - Code Status/Comfort Care Code Status: Full Code Critical Care: No Time Spent Managing PTS Care (In Minutes): 35
[2020-08-03] MEDS ORDERED: GABAPENTIN 100 MG CAP PO SCH (09:00)
[2020-08-03] MEDS: ASPIRIN 81 MG CHEWABLE TABLET PO SCH (09:06)
[2020-08-03] MEDS: SEVELAMER CARBONATE 800 MG TABLET PO SCH ×3 (09:06→18:05)
[2020-08-03] MEDS: CLOPIDOGREL 75 MG TABLET PO SCH (09:06)
[2020-08-03] MEDS: SERTRALINE HCL 100 MG TAB PO SCH (09:06)
[2020-08-03 09:07] LABS: Blood Morphology Comment NOT SEEN (NOT SEEN); Platelet Estimate ADEQ
[2020-08-03] MEDS: FUROSEMIDE 40 MG TABLET PO SCH ×2 (09:07→18:05)
[2020-08-03] MEDS: FOLIC ACID 1 MG TABLET PO SCH (09:07)
[2020-08-03] MEDS ORDERED: HYDROMORPHONE HCL 2 MG/ML inj IM ONE (10:44)
--- NOTE | 2020-08-03 10:58 | P.PN ---
Subjective Date of Service: 08/03/20 Chief Complaint: Hyperosmolar nonketotic syndrome/diabetic foot ulcer A 44-year-old female who has a history of ESRD on HD MWF , stroke, diabetic legally blind and HTN Pt presented for foot pain S/P surgery yesterday today S/P surgery pain control Review of Systems: Head and Neck: neck pain , legally blind GI: No nausea, no vomiting. : No polyuria, no dysuria, no hematuria. Respiratory: No shortness of breath. Cardiovascular: No chest pain. Endocrine: No polydipsia. Skin: No rash. Neuro: Has neuropathy. Musculoskeletal: Rt foot pain Physical exam general: AAOX3, in pain , blind Neck; Supple, No elevated JVD hear: RRR, normal S1,2 no murmur or rub Chest: CTAB, no rlaes or wheezes Abdomen: Soft , Nt Extremities: no edema, Rt foot dressing and wound Vacuum A/P End-stage renal disease on HD MWF HD today renal dose meds Anemia of chronic disease cont epogen HTN Better controlled now cont home meds Rt foot ulcer S/p surgery Wound vacuum Cont Abx DM as per primary team hyperkalemia cont dialysis total time spent 35min Allergies Physical Examination - Vital Signs Temperature: 98.3 F Blood Pressure: 114/55 Pulse: 71 Respirations: 18 Pulse Ox (%): 100 - Physical Exam General: Moderate distress, Severe distress - Studies Laboratory Data (last 24 hrs) 08/03/20 06:20: Sodium Cancelled, Potassium Cancelled, BUN Cancelled, Creatinine Cancelled, Glucose Cancelled, Phosphorus Cancelled, Magnesium 2.2 08/03/20 06:20: WBC 15.8 H D, Hgb 9.9 L, Hct 29.5 L, Plt Count 280 08/03/20 06:20: Sodium 137, Potassium 4.3, BUN 39 H D, Creatinine 4.87 H D, Glucose 88, Phosphorus 4.8 Medications List Reviewed: Yes
[2020-08-03] MEDS: EPOETIN 4,000 UNIT/ML VIAL IV SCH (15:30)
[2020-08-03] MEDS: ONDANSETRON 4 MG/2 ML VIAL IV PRN (16:50)
[2020-08-08 17:02] VITALS: BP 114/55; TEMP 98.3
--- NOTE | 2020-08-08 17:03 | P.DS ---
Discharge Date: 08/03/20 Disposition: DC HOME/HOME HEALTH CARE Discharge Condition: GOOD Reason for Admission: Hyperosmolar nonketotic syndrome/diabetic foot ulcer Consultations: Nephrology General surgeon - Problems (1) Diabetes mellitus with nonketotic hyperosmolarity Status: Acute (2) Uncontrolled diabetes mellitus Status: Acute (3) ESRD (end stage renal disease) Status: Acute (4) Diabetic foot ulcer Status: Acute (5) History of CVA (cerebrovascular accident) Status: Acute (6) Obesity Status: Acute (7) Stage II pressure ulcer of left buttock Status: Acute (8) COPD (chronic obstructive pulmonary disease) Onset Date: 03/03/17 Status: Chronic Qualifiers: (9) CVA (cerebral vascular accident) Onset Date: 03/09/17 Status: Chronic Qualifiers: (10) Depression with anxiety Onset Date: 03/03/17 Status: Chronic Brief History of Present Illness: Patient is a 44-year-old female who was in the same-day surgery area to get diabetic foot ulcer debridement. Patient has a lot of drainage coming from the foot and has had poorly-controlled blood sugars. Patient did not take her insul in for the same-day procedure and her blood sugars are greater than 500. At this time her surgery is going to be delayed and we were half to admit her to the hospital for hyperosmolar nonketotic syndrome. She is a end-stage renal disease patient as well and we will Consult Nephrology. Patient will also be seen by General surgery for debridement. Will check a hemoglobin A1c during her hospital stay and check blood cultures. Check a procalcitonin level. At this time, patient will be admitted to the hospital for further evaluation. Hospital Course: Patient has done well after debridement. Patient was dialyzed and her symptoms continued to improve. We will continue with IV antibiotics after hemodialysis. Patient is stable for discharge with outpatient follow with nephrology and wound healing center. Patient will also follow up with patient's surgeon in 1 week. Return to the emergency room if patient has any fevers or symptoms worsen. Vital Signs/Physical Exam: Temp Pulse Resp BP Pulse Ox 98.3 F 71 18 114/55 L 100 08/08/20 17:01 08/08/20 17:01 08/08/20 17:01 08/08/20 17:01 08/08/20 17:01 General: Alert, In no apparent distress, Oriented x3 Laboratory Data at Discharge: WBC 15.8 K/uL (4.3-10.9) H D 08/03/20 06:20 Hgb 9.9 g/dL (12.0-15.0) L 08/03/20 06:20 Hct 29.5 % (36.0-45.0) L 08/03/20 06:20 Plt Count 280 K/uL (152-406) 08/03/20 06:20 PT 11.2 SECONDS (9.5-12.5) 08/02/20 05:28 INR 0.95 08/02/20 05:28 APTT 28.6 SECONDS (24.3-36.9) 08/02/20 05:28 Sodium 137 mmol/L (136-145) 08/03/20 06:20 Sodium Cancelled 08/03/20 06:20 Potassium 4.3 mmol/L (3.5-5.1) 08/03/20 06:20 Potassium Cancelled 08/03/20 06:20 BUN 39 mg/dL (7-18) H D 08/03/20 06:20 BUN Cancelled 08/03/20 06:20 Creatinine 4.87 mg/dL (0.55-1.3) H D 08/03/20 06:20 Creatinine Cancelled 08/03/20 06:20 Glucose 88 mg/dL (74-106) 08/03/20 06:20 Glucose Cancelled 08/03/20 06:20 Phosphorus 4.8 mg/dL (2.5-4.9) 08/03/20 06:20 Phosphorus Cancelled 08/03/20 06:20 Magnesium 2.2 mg/dL (1.8-2.4) 08/03/20 06:20 Total Bilirubin 0.7 mg/dL (0.2-1.0) 08/02/20 05:28 AST 109 U/L (15-37) H 08/02/20 05:28 ALT 18 U/L (12-78) 08/02/20 05:28 Alkaline Phosphatase 560 U/L (45-117) H 08/02/20 05:28 Home Medications: Aspirin 81 mg PO DAILY 12/23/19 Gabapentin 100 mg PO M,W,F 12/23/19 Sertraline [Zoloft*] 100 mg PO DAILY 12/23/19 Clopidogrel Bisulfate [Plavix*] 75 mg PO DAILY #30 tablet 12/26/19 Folic Acid 1 mg PO DAILY #30 tablet 12/26/19 Atorvastatin Calcium [Lipitor] 20 mg PO BEDTIME 02/09/20 Calcium Carbonate [Tums Regular*] 2 tab PO TIDWM 06/26/20 Furosemide [Lasix*] 40 mg PO BID 06/26/20 Hydroxyzine HCl [Atarax] 10 mg PO TID PRN 06/26/20 Insulin Glargine,Hum.rec.anlog [Toujeo Max Solostar] 20 unit SQ BEDTIME 06/26/20 Insulin Lispro [Humalog] 25 unit SQ TID 06/26/20 Sevelamer Carbonate [Renvela*] 800 mg PO TIDWM 06/26/20 Tramadol HCl [Ultram] 50 mg PO DAILY PRN 06/26/20 Zinc Oxide/Menthol/Calamine [Lantiseptic Multi-Purpose Oint] 113 gm TP DAILY PRN 06/26/20 Calcitrol [Rocaltrol*] 0.25 mcg PO Q48H #30 cap 08/03/20 levoFLOXacin [Levaquin] 500 mg PO AFTER EACH DIALYSIS #15 tab 08/03/20 New Medications: levoFLOXacin [Levaquin] 500 mg PO AFTER EACH DIALYSIS #15 tab Calcitrol [Rocaltrol*] 0.25 mcg PO Q48H #30 cap Patient Discharge Instructions: OK TO DC IV AND DC HOME after hemodialysis with some wound VAC in place. FOLLOW-UP WITH PRIMARY CARE PROVIDER IN 1-2 WEEKS. FOLLOW-UP WITH SURGERY FOR WOUND CARE. FOLLOW-UP WITH NEPHROLOGY FOR HEMODIALYSIS. RETURN TO THE ER IF SYMPTOMS WORSEN. CALL or TEXT DR. SARMIENTO AT [phone] IF ANY QUESTIONS REGARDING HOSPITAL STAY. PLEASE CALL THE FLOOR AT [phone] IF ANY MEDICATION OR NURSING QUESTIONS. Diet: Renal Activity: Fall precautions Followup: Nael Beckman MD [ACTIVE - CAN ADMIT] - Ana Kendall NP [Primary Care Provider] - Tristan Nunes MD [ACTIVE - CAN ADMIT] - Time spent managing pt's care (in minutes): 35
== END 2020-08-03 19:06 | disposition home health service (06) ==
LOC: OR 11:10 → INTOOBSV 14:40 → OBSVTOIN 14:40 → 2ND 14:40 → OBSVTOIN 08-02 14:46 → INTOOBSV 08-02 14:46
PROVIDERS: ADMIT Hospitalist; ATTEND Hospitalist
PROC: 0Y6M0Z4 Detachment at Right Foot, Complete 1st Ray, Open Approach (ICD-10-PCS; principal; 2020-08-02 14:15)
DX: E11.00 Type 2 diabetes mellitus with hyperosmolarity without nonketotic hyperglycemic-hyperosmolar coma (NKHHC) (principal); E11.69 Type 2 diabetes mellitus with other specified complication; M86.171 Other acute osteomyelitis, right ankle and foot; E11.621 Type 2 diabetes mellitus with foot ulcer; Z20.828 Contact with and (suspected) exposure to other viral communicable diseases; F17.210 Nicotine dependence, cigarettes, uncomplicated; I12.0 Hypertensive chronic kidney disease with stage 5 chronic kidney disease or end stage renal disease; N18.6 End stage renal disease; L89.322 Pressure ulcer of left buttock, stage 2; E11.22 Type 2 diabetes mellitus with diabetic chronic kidney disease; Z79.4 Long term (current) use of insulin; Z86.73 Personal history of transient ischemic attack (TIA), and cerebral infarction without residual deficits; Z99.2 Dependence on renal dialysis; H54.7 Unspecified visual loss; Z95.820 Peripheral vascular angioplasty status with implants and grafts; D63.1 Anemia in chronic kidney disease; E66.9 Obesity, unspecified; F41.8 Other specified anxiety disorders; J44.9 Chronic obstructive pulmonary disease, unspecified; Z85.850 Personal history of malignant neoplasm of thyroid; E11.40 Type 2 diabetes mellitus with diabetic neuropathy, unspecified; K21.9 Gastro-esophageal reflux disease without esophagitis; E78.5 Hyperlipidemia, unspecified; N25.81 Secondary hyperparathyroidism of renal origin; E83.52 Hypercalcemia; E83.39 Other disorders of phosphorus metabolism; Z89.411 Acquired absence of right great toe; E11.319 Type 2 diabetes mellitus with unspecified diabetic retinopathy without macular edema; E87.1 Hypo-osmolality and hyponatremia
CPT/HCPCS: 85025 ×3; 80048; 36415 ×2; 83735; 82947 ×13; 85610; 83605; 88304; 88311; 85730; 80069 ×2; 80053; 84145; 90935 ×2; 97162; 28810; U0002; J0360; J2704; J2250; J1170; J3010; J2270 ×7; J1644 ×2; J0690; Q5105 ×2; J7030; J2405 ×6; 84100; G0378; G0379; J1815

== ENCOUNTER 2020-08-15 15:09 | Inpatient (IN) | payer OTHER ==
--- OUTSIDE RECORDS SUMMARY | 2020-08-15 15:12 | XMS REPORT | Clinical Summary ---
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); Gastroparesis; Acute idiopathi c gout involving toe of right foot; Stable prolifer ative diabetic retinopathy associated with diabetes mellitus due to underlying condition, unspecified laterality ([facility]); Other specified hypothyroidism after 08/15/2019 Family History Medical History Relation Name Comments [...] External Ris In - 07/05/2020 1:08 AM 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 after 08/15/2019 Results POC-Glucose meter (05/24/2020 7:58 AM CDT)Only the most recent of22 results within the time period is included. POC-Glucose Meter 151 (H)Comment: : 70 - [address] [facility] TEST[facility] AT [facility] mg/dL [facility] [address] [facility] [id number]: Mechanic/Technicia n ID = [id number] for Emilee Kuhn Specimen Blood Performing Organization Address City/State/Zipcode Phone Number [facility] [address] [place] [address] CENTER CBC with platelet count [...] LABORATORY e Specimen Blood Performing Organization Address City/[facility]/Zipcode Phone Number [facility] [address] [place], [place] [phone] Phosphorus (05/24/2020 4:39 AM CDT)Only the most recent of6 resultswithin the time period is included. Pathologist Sig nature Phosphorus 4.0 2.5 - 4.5 mg/dL [facility] Specimen Blood Narrative Performed At Mechanic ID - ADMIN [facility] Performing Organization Address [facility] Phone Number [facility] [address] [place], [place] [phone] Basic Metabolic Panel (05/24/2020 4:39 AM CDT)Only the most recent of7 results within the time period is included. Sodium 140 135 - 148 meq/L [facility] Potassium 4.0 3.6 - 5.5 meq/L [...] DIALYSIS PATIENTS. Specimen Blood Narrative Performed At Mechanic ID - ADMIN [facility] Performing Organization Address City/State/Zipcode Phone Number [facility] [address] [place], [place] [address] Vancomycin level, random (05/23/2020 4:02 AM CDT)Only the most recent of3 resultswithin the time period is included. Pathologist Sig nature Vancomycin Rm 19.7 ug/mL [facility] Specimen Blood Narrative Performed At Reference Range: No Normals [facility] Mechanic ID - ADMIN Performing Organization Address City/[facility]/Zipcode Phone Number [facility] [address] [place], [place] [address] TRANSFUSION SERVICE REPORT - SCAN (05/22/2020 6:25 PM CDT) Narrative Performed At This result has an attachment that is no t available. Tissue Exam (05/21/2020 12:36 PM CDT) Case Report Surgical Pathology Report Case: [id number] S [facility] Authorizing Provider: Jada Herron DPM Collected: 05/21/2020 12:36 PM LABORATORY Ordering Location: [facility] Med Surg 5th Floor Received: 05/21/2020 12:49 PM Pathologist: Ann Meeks MD Specimen: Bone, right 1 st metatarsal head bone biopsy DIAGNOSIS BONE, RIGHT FIRST METATARSAL HEAD, BIOPSY: [facility] Electronically - BONE WITH FOCAL FIBROSI S AND CHRONIC INFLAMMATION, CONSISTENT WITH CHRONIC OSTEOMYELITIS LABORATORY signed by Milo Meeksing Pathologist Direct Phone Line: [phone] Ann Jung MD on 05/22/2020 at 11:55 AM CPT Code(s) 49777; [id number] [facility] CLINICAL HISTORY Right foot abscess [facility] SPECIMEN SOURCE Right 1st metatarsal [facility] head bone biopsy LABORATORY GROSS DESCRIPTION Specimen is received [facility] in formalin LABORATORY designated "bone" and consists of two marin-red bone fragments measuring 1 x 0.3 x 0.3 cm, submitted after decalcification in cassette A1. SQ/pl MICROSCOPIC Performed. [facility] DESCRIPTION LABORATORY Gross assessment [facility] was performed at [facility], Department LABORATORY of Pathology, [address] [place] [id number], Technical [facility] [place] component was [facility], LABORATORY performed at Department of Pathology, [address] [place] [id number], Professional [facility] [place] component was Hospital, Department LABORATORY performed at of Pathology, [address] [place] [address], Specimen Tissue - Entire bone (organ) (body struc ture) Narrative Performed At This result has an attachment that is no t available. Performing Organization Address City/State/Zipcode Phone Number [facility] [address] [place] [phone] Anaerobic culture (05/21/2020 12:18 PM CDT)Only the most recent of2 results within the time period is included. Pathologist Sig nature Result No anaerobes isolated [facility] RY Specimen Wound - Metatarsal, Right Performing Organization Address City/State/Zipcode Phone Number [facility] [address] [place] [phone] Surgically obtained culture + gram stain (05/21/2020 12:18 PM CDT)Only the most recent of2 resultswithin the time period is included. Result <1+ Trinidad [facility] parapsilosis (A) LABORATORY Gram Stain Result No White blood cells [facility] seen LABORATORY Gram Stain Result No organisms seen [facility] Specimen Wound - Metatarsal, Right Performing Organization Address [facility]/Zipcode Phone Number [facility] [place] [phone] ABORH, manual (05/21/2020 4:59 AM CDT) Pathologist Sig nature ABO Grouping O [facility] Rh Factor POS [facility] Specimen Blood Performing Organization Address City/[facility] Phone Number [facility] [address] [place], [place] [address] [phone] [facility] Type and screen, automated (05/21/2020 3:52 AM CDT) Pathologist Sig nature ABO/RH AUTOMATED O POSITIVE [facility] ([facility] Ab Scrn NEGATIVE [facility] Specimen Blood Performing Organization Address [facility] Phone Number [address] [address] [phone] [facility] Iron, TIBC, % sat. (without ferritin) (05/21/2020 3:52 AM CDT) Pathologist Sig nature Iron 68.0 45.0 - 170.0 [facility] ug/dL TIBC 170 (L) 250 - 550 ug/dL [facility] Iron % Saturation 40 20 - 55 % [facility] Specimen Blood Narrative Performed At Mechanic ID - ADMIN [facility] Performing Organization Address [facility] Phone Number [facility] [address] [place], [place] [address] aPTT (05/21/2020 3:52 AM CDT) Pathologist Sig nature PTT 27.9 23.0 - 35.0 sec [facility] Specimen Blood Narrative Performed At Final Information (Auto Output) [facility] Performing Organization Address [facility] Phone Number [facility] [address] [place] [phone] Prothrombin time/INR (05/21/2020 3:52 AM CDT) Pathologist Sig nature Protime 10.9 9.3 - 12.0 sec [facility] INR 1.00 <=5.90 [facility] Specimen Blood Narrative Performed At RECOMMENDED COUMADIN/WARFARIN INR THERAP Y RANGES [facility] STANDARD DOSE: 2.0 - 3.0 Includes: PROPHYLAXIS for venous thrombosis, systemic embolization; TREATMENT for venou s thrombosis and/or pulmonary embolus. HIGH RISK: Target INR is 2.5-3.5 for patients with mec hanical heart valves. Final Information (Auto Output) Final Information (Auto Output) Performing Organization Address City/[facility] Phone Number [facility] [address] [place], [place] [address] hCG, serum, qualitative (05/21/2020 3:52 AM CDT) Pathologist Sig nature Preg Test, Serum Negative [facility] Specimen Blood Performing Organization Address [facility]/[place] [id number] Magnesium (05/21/2020 3:52 AM CDT)Only the most recent of4 resultswithin the time period is included. Pathologist Sig nature Magnesium 2.0 1.5 - 3.0 mg/dL [facility] Specimen Blood Narrative Performed At Mechanic ID - ADMIN [facility] Performing Organization Address [facility] Number [place] [address] TSH/Free T4 If Indicated (05/20/2020 6:19 AM CDT) Pathologist Sig nature TSH 3.130 0.350 - 5.500 uIU/mL [facility] Y Specimen Blood Narrative Performed At Mechanic ID - ADMIN [facility] Performing Organization Address [facility] Number [facility] [address] [place], [place] [address] Hepatitis B surface antibody (05/18/2020 5:37 PM CDT) Pathologist Sig nature Hep B S Ab 9.4 (H) <8.0 mIU/mL [facility] Specimen Blood Narrative Performed At Mechanic ID - [facility] CENTER Performing Organization Address [facility] Phone Number [facility] [address] [place] [address] CENTER Hepatitis B surface antigen (05/18/2020 5:37 PM CDT) Pathologist Sig nature HBsAg Screen Nonreactive Nonreactive [facility] Specimen Blood Narrative Performed At Mechanic ID - ADMIN [facility] Performing Organization Address City/State/Zipcode Phone Number [facility] [address] [facility] [place] [place] [address] MR lower extremity without IV contrast right side (05/18/2020 11:54 AM CDT) Specimen Narrative Performed At FINAL REPORT [facility] MRI of the right forefoot without intrav [...] Report Verified Date/Time: 05/18/2020 15:44:11 Reading Location: [facility] Radiology Reading Room Procedure Note Interface, External [...] Verified Date/Time: 05/18/2020 1 5:44:11 Reading Location: [facility] Radiology Reading Room Performing Organization Address City/State/Zipcode Phone Number [facility] Blood Culture - Routine (Left Venipuncture) (05/18/2020 8:55 AM CDT) Pathologist Sig nature Result No growth in 5 days [facility] Specimen Blood - Entire left upper arm (body stru cture) Performing Organization Address City/State/Zipcode Phone Number [facility] [address] [facility] [place] [address] Vancomycin level, trough (05/18/2020 8:31 AM CDT) Pathologist Sig nature Vancomycin Tr 15.1 10.0 - 20.0 ug/mL [facility] Specimen Blood Narrative Performed At Mechanic ID - ADMIN [facility] Performing Organization Address [facility] Phone Number [facility] [address] [place] [phone] C-Reactive Protein (05/18/2020 8:25 AM CDT) Pathologist Sig nature CRP 1.17 (H) 0.00 - 0.50 mg/dL [facility] Specimen Blood Narrative Performed At Mechanic ID - ADMIN [facility] Performing Organization Address [facility] Number [facility] [address] [place] [phone] Hemoglobin A1c (05/18/2020 8:25 AM CDT) Pathologist Sig [facility] Hemoglobin A1C 9.4 (H) 4.3 - 6.1 % [facility] Specimen Blood Narrative Performed At Mechanic ID - ADMIN [facility] Performing Organization Address [facility] Phone Number [facility] [address] [place] [phone] Hepatic function panel (05/18/2020 8:25 AM CDT) Protein, Total 6.9Comment: 6.0 - 8.5 [facility] Specimen slightly gm/dL LABORATORY hemolyzed Albumin 3.1 (L)Comment: 3.5 - 5.0 [facility] Specimen slightly g/dL [facility] hemolyzed Total Bilirubin 0.5Comment: 0.1 - 1.2 [facility] Specimen slightly mg/dL LABORATORY hemolyzed Bilirubin, Direct 0.2Comment: 0.0 - 0.4 [facility] Specimen slightly mg/dL LABORATORY hemolyzed Alkaline 146 (H) 30 - 115 U/L [facility] Phosphatase LABORATORY AST 31Comment: 5 - 40 U/L [facility] Specimen slightly LABORATORY hemolyzed ALT 26Comment: 5 - 50 U/L [facility] Specimen slightly LABORATORY hemolyzed Specimen Blood Narrative Performed At Mechanic ID - ADMIN [facility] Performing Organization Address [facility] Phone Number [facility] [address] [facility] [place] [address] SARS-CoV2/RT-PCR (Asymptomatic ONLY) (05/18/2020 7:57 AM CDT) SARS-COV2/RT-PCR Negative Not Detected, COL[facility] PATRICK Negative, See [facility] external report CENTER for linked test SARS-COV-2 [facility] GEOFFREY COLTON PATRICK PERFORMING LAB [facility] Specimen Other - Nasopharyngeal wall structure (b lisette structure) Narrative Performed At Negative result for this test determines that [facility] SARS-CoV-2 RNA was not present in [...] the Act. Fact Sheet for Healthcare Providers: https://www.[employer].com/sites/default/files/pro duct/documents/Fact_Sheet_HC_Providers_Lyra_SA RS-CoV-2.pdf Fact Sheet for Healthcare Patients: https://www.[employer]/sites/default/files/pro duct/documents/Fact_Sheet_Patients_Lyra_SARS-C oV-2.pdf Performing Laboratory: [address] [address] Performing Organization Address City/State/Zipcode Phone Number [address] [phone] CENTER XR chest 1 view portable / [...] Report Verified Date/Time: 05/18/2020 08:11:49 Reading Location: [email or web address] [facility] Reading Room Procedure Note Interface, External [...] Verified Date/Time: 05/18/2020 0 8:11:49 Reading Location: [email or web address] [facility] Reading Room Performing Organization Address City/State/Zipcode Phone Number GE RIS [id number]-SCANNED (05/18/2020) Narrative Performed At This result has an attachment that is no t available. Ordered by an unspecified provider. after 08/15/2019 Insurance Payer Benefit Plan Subscriber ID Effective Phone Address Typ e / Group Dates [facility] [id number] 2016-Prese HEALTHCARE - MEDICARE HMO nt MEDICARE MGD CARE MEDICAID - [facility] [id number] 2013-[place] STAR PLAN nt [facility] Advance Directives For more information, please contact: [phone] Code Status Date Activated Date Inactivated Comments Full Code 05/18/2020 5:13 AM 05/24/2020 1:21 PM This code status was determined by: Patient Full Code 07/16/2019 12:46 AM 07/18/2019 4:56 PM This code status was determined by: Patient Full Code 03/14/2017 8:30 PM 03/20/2017 12:11 PM This code status was determined by: Patient
--- OUTSIDE RECORDS SUMMARY | 2020-08-15 15:15 | XMS REPORT | Continuity of Care Document ---
:1975 Author Organization [facility] t Address [address] [place] [address] Care Team Providers Name Role Phone PETER [...] Effective Date Expiration Date Sour ce Number [facility] [id number] 2016 [facility] - MEDICARE MGD 00:00:00 - [facility] MEDICARE [id number]/08/18 017-Present MEDICAID - [id number] 2013 [facility] MEDICAID MGD 00:00:00 - Medical CARED [facility] STAR [id number]-PresentMedic aid Contracted Problems Condition Condition Condition Status [...] dialysis 09-15 [facility] - 00:[facility]: Medical 00 [place] Proteinuri Proteinuri Disease Active C [facility] [...] 03-16 Luke s - encephalop encephalop 00:00: Nm dical athy athy 00 [place] Cerebrovas Cerebrovas Disease Active C [facility] [...] mellitus mellitus 03-15 Lu - 00:00: Medical [place] Depression Depression Disease Active [facility] Anxiety Anxiety Disease Active [facility] GERD GERD Disease Active [facility] (gastroeso (gastroeso 03-15 Carolann kes - phageal phageal 00:00: Medical reflux reflux 00 Center disease) disease) COPD COPD Disease Active [facility] (chronic (chronic 03-15 [facility] - obstructiv obstructiv 00:00: Nm dical e e 00 Center pulmonary pulmonary disease) disease) Chronic Chronic Disease Active [facility] renal renal 03-15 [facility] - disease disease 00:00: Medical 00 Center Hyperlipid Hyperlipid Disease Active [facility] emia emia 03-15 [facility] - 00:00: Medical 00 Center History of History of Disease Active [facility] thyroid thyroid 03-15 [facility] - cancer cancer 00:00: [address] Blind Blind Disease Active [facility]15 [facility] - 00:: [address] Tobacco Tobacco Disease Active [facility] abuse abuse 03-15 [facility] - 00:00: [address] Diabetic Diabetic Disease Active [facility] retinopath retinopath 03-15 Carolann kes y y 00:00: [address] Diabetic Diabetic Disease Active [facility] nephropath nephropath 03-15 Carolann kes - y y 00:00: [address] Allergies, Adverse Reactions, Alerts Allergy Allergy Status Severity Reaction(s) Onset Inactive Treating Comm ents Source Name Type Date Date Clinician No Known DA Active [facility] Allergie 08-22 [place] 00:00: [address] Family History Family Member Diagnosis Comments Start Date Stop Date Source Natural daughter No Known Problem [facility] Natural father Hypertension [facility] Natural mother Diabetes [facility] Natural mother Hypertension [facility] Natural mother Kidney disease [facility] Social History Social Habit Start Date Stop Date Quantity Comments Source History [facility] - Alcohol Std Drinks Medica [facility] History [facility] - Alcohol Binge Medical [facility] ter Sex Assigned At [facility] Cigarettes smoked 2020-05-24 2020-05-[address] [facility] - current (pack per 00:00:00 00:00:00 [facility] day) - Reported Cigarette 2020-05-24 2020-05-24 [facility] - pack-years 00:00:00 00:00:00 [facility] Tobacco use and 2020-05-24 2020-05-24 Never used [facility] - exposure 00:00:00 00:00:00 [facility] Alcohol intake 2020-05-24 2020-05-24 Current [facility] es - 00:00:00 00:00:00 non-drinker of Medical Ce nter alcohol (finding) History SDOH 2020-05-18 2020-05-[address] [facility] - Alcohol Frequency 00:00:00 00:00:00 [facility] History of tobacco 2020-05-[address] [facility] Smoking Status Start Date Stop Date Source Former smoker 2020-05-24 00:00:00 2020-05-24 00:00:[address] [facility] Medications Ordered Filled Start Stop [...] needed for Anxiety. busPIRone 2019-08 Yes 10mg Q.[id number] Take [address] (BUSPAR) 10 0-08 [id number] by mouth 3 [facility] - MG tablet [...] for 30 days. cyclobenzap 2018-08 Yes 2.5mg Q.[id number] Take 2.[address] rine 0-16 [id number] mg by [facility] - (FLEXERIL) 00:00: 3D [...] blood 2020-05-24 07:48:00 133 mm[Hg] [facility] Diastolic blood 2020-05-24 07:48:00 63 mm[Hg] [facility] Heart rate 2020-05-24 07:48:00 89 /min [facility] Body temperature 2020-05-24 07:48:00 36.78 [facility] Respiratory rate 2020-05-24 07:48:00 18 /min [facility] Oxygen saturation in 2020-05-24 07:48:00 98 /min [facility] Arterial blood by Medical Ce nter Pulse oximetry Body height 2020-05-18 05:32:00 162.6 cm [facility] Body weight 2020-05-18 05:32:00 61.236 kg [facility] BMI 2020-05-18 05:32:00 23.16 kg/m2 [facility] Procedures Procedure Date / Time Performed Performing Clinician Isidro carter POCT-GLUCOSE METER 2020-05-24 07:58:00 [facility] BASIC METABOLIC PANEL 2020-05-24 04:39:00 Nikolas Giles [address] PHOSPHORUS 2020-05-24 04:39:00 Nikolas Giles [facility] CBC W/PLT COUNT & AUTO 2020-05-24 04:39:00 Nikolas Giles [facility] POCT-GLUCOSE METER 2020-05-23 20:35:00 [facility] HEMODIALYSIS INPATIENT 2020-05-23 11:33:43 Libby Gao [facility] POCT-GLUCOSE METER 2020-05-23 11:26:00 [facility] POCT-GLUCOSE METER 2020-05-23 07:19:00 Nikolas Giles [facility] VANCOMYCIN LEVEL, RANDOM 2020-05-23 04:02:00 Mikel Tellez [facility] BASIC METABOLIC PANEL 2020-05-23 04:02:00 Nikolas Giles [address] PHOSPHORUS 2020-05-23 04:02:00 Nikolas Giles [facility] CBC W/PLT COUNT & AUTO 2020-05-23 04:02:00 Nikolas Giles [facility] POCT-GLUCOSE METER 2020-05-22 20:40:00 Nikolas Giles [facility] TRANSFUSION SERVICE 2020-05-22 18:25:34 Provider, Francisco [facility] REPORT - SCAN Scanning [facility] POCT-GLUCOSE METER 2020-05-22 11:30:00 Nikolas Giles [facility] POCT-GLUCOSE METER 2020-05-22 07:27:00 Nikolas Giles [facility] BASIC METABOLIC PANEL 2020-05-22 05:00:[address] [facility] ([facility]) [facility] PHOSPHORUS 2020-05-22 05:00:00 Nikolas Giles [facility] CBC W/PLT COUNT & AUTO 2020-05-22 05:00:00 Nikolas Giles [facility] POCT-GLUCOSE METER 2020-05-21 21:36:00 Nikolas Giles [facility] TISSUE EXAM 2020-05-21 12:36:00 Jada Alfonso [facility] POCT-GLUCOSE METER 2020-05-21 12:28:00 Nikolas Giles [facility] ANAEROBIC CULTURE 2020-05-21 12:18:47 Jada Alfonso [facility] SURGICALLY OBTAINED 2020-05-21 12:18:47 [facility] + GRAM STAIN Medical [facility] ter ANAEROBIC CULTURE 2020-05-21 12:16:02 Jada Alfonso [facility] SURGICALLY OBTAINED 2020-05-21 12:16:02 Jada Alfonso [facility] - CULTURE + GRAM STAIN Medical [facility] ter DEBRIDEMENT/I&D,WOUND 2020-05-21 11:30:00 Jada Alfonso [facility] LOWER [facility] ECG 12-LEAD 2020-05-21 09:24:05 Unknown, Hl7 [facility] POCT-GLUCOSE METER 2020-05-21 07:44:00 Nikolas Giles [facility] ABORH, MANUAL 2020-05-21 04:59:[address] [facility] BASIC METABOLIC PANEL 2020-05-21 03:52:00 [facility], Nikolas Churchill [facility] () [facility] MAGNESIUM 2020-05-21 03:52:00 [facility] PHOSPHORUS 2020-05-21 03:52:00 [facility] VANCOMYCIN LEVEL, RANDOM 2020-05-21 03:52:00 Ta, Radha-Elma Thi [facility] IRON, TIBC, % SAT. 2020-05-21 03:52:00 LisetTravis [facility] (WITHOUT FERRITIN) [facility] PROTHROMBIN TIME/INR 2020-05-21 03:52:00 [facility], Nikolas Churchill [facility] APTT 2020-05-21 03:52:00 [facility], Nikolas [facility] HCG, SERUM, QUALITATIVE 2020-05-21 03:52:00 Melchor Ayala l [facility] TYPE AND SCREEN, 2020-05-21 03:52:00 [facility] Nik[facility] Churchill [facility] CBC W/PLT COUNT & AUTO 2020-05-21 03:52:00 [facility], Nikolas Churchill [facility] POCT-GLUCOSE METER 2020-05-20 21:08:00 [facility] POCT-GLUCOSE METER 2020-05-20 15:51:00 [facility] POCT-GLUCOSE METER 2020-05-20 11:20:00 [facility], Nikolas Churchill [facility] POCT-GLUCOSE METER 2020-05-20 07:21:00 [facility] BASIC METABOLIC PANEL 2020-05-20 06:19:00 [facility] Nik[facility] Churchill [facility] (7) [facility] MAGNESIUM 2020-05-20 06:19:00 [facility], Nikolas Churchill [facility] PHOSPHORUS 2020-05-20 06:19:00 Nikolas Glies [facility] TSH/FREE T4 IF INDICATED 2020-05-20 06:19:00 Nikolas Giles [facility] CBC W/PLT COUNT & AUTO 2020-05-20 05:07:00 Nikolas Giles [facility] POCT-GLUCOSE METER 2020-05-19 22:01:00 Nikolas Giles [facility] POCT-GLUCOSE METER 2020-05-19 16:24:00 Nikolas Giles [facility] POCT-GLUCOSE METER 2020-05-19 11:20:00 Nikolas Giles [facility] VANCOMYCIN LEVEL, RANDOM 2020-05-19 08:33:00 Jayleen Santana [facility] BASIC METABOLIC PANEL 2020-05-19 08:33:[address] [facility] (7) [facility] MAGNESIUM 2020-05-19 08:33:00 Nikolas Giles [facility] PHOSPHORUS 2020-05-19 08:33:00 Nikolas Giles [facility] CBC W/PLT COUNT & AUTO 2020-05-19 08:33:00 Nikolas Giles [facility] POCT-GLUCOSE METER 2020-05-19 07:41:00 Nikolas Giles [facility] POCT-GLUCOSE METER 2020-05-18 20:50:00 Nikolas Giles [facility] HEPATITIS B SURFACE 2020-05-18 17:37:00 Travis Hutchins [facility] S t [facility] - ANTIGEN [facility] HEPATITIS B SURFACE 2020-05-18 17:37:00 Travis Hutchins [facility] S t [facility] ANTIBODY [facility] POCT-GLUCOSE METER 2020-05-18 16:31:00 Nikolas Giles [facility] POCT-GLUCOSE METER 2020-05-18 12:43:00 Nikolas Giles [facility] MR LOWER EXTREMITY 2020-05-18 11:54:00 Peter, [facility] WITHOUT IV CONTRAST Medical Cent er RIGHT HEMODIALYSIS INPATIENT 2020-05-18 10:28:35 Travis Hutchins [facility] BLOOD CULTURE 2020-05-18 08:55:00 Peter [facility] VANCOMYCIN LEVEL, TROUGH 2020-05-18 08:31:00 Jayleen Santana [facility] BASIC METABOLIC PANEL 2020-05-18 08:25:00 Peter [facility] (7) [facility] HEPATIC FUNCTION PANEL 2020-05-18 08:25:00 [facility] HEMOGLOBIN A1C 2020-05-18 08:25:00 [facility] MAGNESIUM 2020-05-18 08:25:00 [facility] C-REACTIVE PROTEIN 2020-05-18 08:25:00 [facility] CBC W/PLT COUNT & AUTO 2020-05-18 08:25:00 [facility] SARS-COV2/RT-PCR ([facility] & 2020-05-18 07:57:00 [facility] - REF LABS) [facility] POCT-GLUCOSE METER 2020-05-18 07:26:00 Nikolas Giles [facility] XR CHEST 1 VIEW 2020-05-18 05:55:00 Peter [facility] PORTABLE/BEDSIDE Medical Center REPORT OF PROCEDURE - 2020-05-18 00:00:00 Provider, Default [facility] - ENDOSCOPY SCAN Scanning [facility] [id number] 2019-05-18 00:00:00 ENCPL [id number] 2019-05-18 00:00:00 ENCPL [id number] 2019-05-18 00:00:00 ENCPL [id number] 2019-05-18 00:00:00 ENCPL Plan of Care Planned Activity Planned Date Details Comments Source Future Scheduled 2022-07-16 Lipid panel [facility] - Test 00:00:00 (procedure) [code = Medical Center 87188072] Future Scheduled 2021-05-[address] [facility] - Test 00:00:00 examination Medical Center (regime/therapy) [code = 789153074] Future Scheduled 2020-08-[address] Carolann kes - Test 00:00:00 measurement Medical Center (procedure) [code = 27786696] Future Scheduled 2020-04-17 INFLUENZA VACCINE (#1) C [...] 00:00:00 protein (procedure) Medical Center [code = 718140232] Future Scheduled 2017-08-[address] [facility] - Test 00:00:00 WELLNESS (YEAR 2 or Medical Center FIRST YEAR if no IPPE) [code = MEDICARE ANNUAL WELLNESS (YEAR 2 or FIRST YEAR if no IPPE)] Future Scheduled 1995-10-[address] [facility] - Test 00:00:00 malignant neoplasm of Medica l Center cervix (procedure) [code = 990034606] Future Scheduled 1984 DIABETIC EYE EXAM [facility] - Test 00:00:00 [code = DIABETIC EYE Medical Center EXAM] Encounters Start End Encounter Admission Attending Care Care Encounter Source Date/Time Date/Time Type Type Clinicians Facility Department ID 2019-04-12 Inpatient [facility] [id number] 13:57:46 2020-06-26 2020-06-26 Outpatient STLMLC [facility] [id number] [facility] [...] after consultation wi th the clinical microbiology [facility].Refer to previous cul ture ofCandida parapsilosis GRAM STAIN RESULT No White blood cells seen (BEAKER) (test code = 1123) GRAM STAIN RESULT No organisms seen (BEAKER) (test code = 905893) Surgically obtained culture + gram [id number] 11:24:00 Test Item Value Reference Range Interpretation Comments Result (test code = <1+ Trinidad A 6463-4) parapsilosis Gram Stain Result (test No organisms seen code = 1123) Lab Interpretation (test Abnormal code = 56207-9) [facility] GRAM [id number] 11:24:00 Test Item Value Reference Range Interpretation Comments CULTURE (BEAKER) A <1+ Trinidad (test code = parapsilosis 1095) GRAM STAIN No White blood RESULT (BEAKER) cells seen (test code = 1123) GRAM STAIN No organisms seen RESULT (BEAKER) (test code = 27276) Anaerobic [id number] 15:40:00 Test Item Value Reference Range Interpretation Comments Result (test code = No anaerobes isolated 6463-4) [facility] [id number] 15:40:00 Test Item Value Reference Range Interpretation Comments CULTURE (BEAKER) (test No anaerobes isolated code = 1095) ANAEROBIC [id number] 15:40:00 Test Item Value Reference Range Interpretation Comments CULTURE (BEAKER) (test No anaerobes isolated code = 1095) POC-Glucose [id number] 08:09:00 Test Item Value Reference Range Interpretation Comments POC-Glucose Meter (test 151 mg/dL 70-110 H : TE STED AT [facility] code = 1538) [address] [facility] [address]: Magnet Valve Assembler/Techni tammy ID = [id number] for Emilee Kuhn Lab Interpretation (test Abnormal code = 03800-6) [facility] Center[facility]SE [id number] 08:09:00 Test Item Value Reference Range Interpretation Comments POC-GLUCOSE METER 151 mg/dL 70-110 H : TESTED A T SLS 1317 (BEAKER) (test [facility] [address] [facility], = 1538) [facility] [address]: Magnet Valve Assembler/Techni tammy ID = [id number] for Emilee Kovacs Basic Metabolic [id number] 06:34:00 Test Item Value Reference Range Interpretation Comments Sodium (test code = 140 meq/L 835-951 4879-2) Potassium (test code = 4.0 meq/L 3.6-5.5 2823-3) Chloride (test code = 101 meq/L 98-106 2075-0) CO2 (test code = 28 meq/L -29 2028-9) BUN (test code = 13 mg/dL - 3094-0) Creatinine (test code 3.66 mg/dL 0.5-1.2 H = 2160-0) Glucose (test code = 159 mg/dL 70-110 H 2345-7) Calcium (test code = 8.4 mg/dL 8.5-10.5 L 41784-6) EGFR (test code = 13 mL/min/1.73 [place] [address]-2) NOT ACCURATE CREATININE CLEARANCE IN PREDICTING GLOMERULAR FILTRATION RATE . ESTIMATED GFR I S NOT APPLICABLE FOR DIALYSIS PATIENTS. YAKELIN (test code = YAKELIN) Magnet Valve Assembler ID - ADMIN Lab Interpretation Abnormal (test code = 21398-2) [facility] METABOLIC [id number] 06:34:00 Test Item Value Reference Range Interpretation [...] S NOT APPLICABLE FOR DIALYSIS PATIEN TS. Magnet Valve Assembler ID - [id number] 06:23:00 Test Item Value Reference Range Interpretation Comments Phosphorus (test code = 4.0 mg/dL 2.5-4.5 2777-1) YAKELIN (test code = YAKELIN) Magnet Valve Assembler ID - ADMIN Lab Interpretation (test Normal code = 65914-5) [facility]2020-[facility]-08 06:23:00 Test Item Value Reference Range Interpretation Comments PHOSPHORUS (BEAKER) (test code = 4.0 mg/dL 2.5-4.5 604) Magnet Valve Assembler ID - ADMINCBC with platelet count + automated [id number] 05:45:00 Test Item Value Reference Range Interpretation [...] 430 K/CU MM MPV (test code = 42543-2) 10.6 fL 6-11.5 nRBC (test code = [...] 2801) Lab Interpretation (test code = Abnormal 11035-5) [facility] W/PLT COUNT & AUTO [id number] 05:45:00 Test Item Value Reference Range Interpretation [...] PERCENT (BEAKER) (test code = 2801) POCT-GLUCOSE [id number] 20:47:00 Test Item Value Reference Range Interpretation Comments POC-GLUCOSE METER 205 mg/dL 70-110 H : TESTED A T SLSL 1317 (BEAKER) (test code [address], = 1538) [place] [address]: Magnet Valve Assembler/Techni tammy ID = [id number] for Pat Reyes Blood Culture - Routine (Left Venipuncture)2020-05-23 13:00:00 Test Item Value Reference Range Interpretation Comments Result (test code = No growth in 5 days 6463-4) [facility] [id number] 13:00:00 Test Item Value Reference Range Interpretation Comments CULTURE (BEAKER) (test No growth in 5 days code = 1095) POCT-GLUCOSE [id number] 11:38:00 Test Item Value Reference Range Interpretation Comments POC-GLUCOSE METER 74 mg/dL 70-110 : TESTED A T [address] (BEAKER) (test code = [address]) [place] [address]: Magnet Valve Assembler/Techni tammy ID = [id number] for Buff ord, Soheila POCT-GLUCOSE [id number] 07:31:00 Test Item Value Reference Range Interpretation Comments POC-GLUCOSE METER 104 mg/dL 70-110 : TESTED A T [address] (BEAKER) (test code [address], = 1538) [place] [address]: Magnet Valve Assembler/Techni tammy ID = [id number] for Buff ord, Soheila BASIC METABOLIC [id number] 05:25:00 Test Item Value Reference Range Interpretation [...] S NOT APPLICABLE FOR DIALYSIS PATIEN TS. Magnet Valve Assembler ID - [id number] 05:21:00 Test Item Value Reference Range Interpretation Comments PHOSPHORUS (BEAKER) (test code = 5.1 mg/dL 2.5-4.5 H 604) Magnet Valve Assembler ID - ADMINVancomycin level, [id number] 05:20:00 Test Item Value Reference Range Interpretation Comments Vancomycin Rm (test 19.7 ug/mL code = 01250-4) YAKELIN (test code = Reference Range: No YAKELIN) NormalsOperator ID - ADMIN [facility], [id number] 05:20:00 Test Item Value Reference Range Interpretation Comments VANCOMYCIN RANDOM (BEAKER) (test 19.7 ug/mL code = 523) Reference Range: No NormalsOperator ID - ADMINCB W/PLT COUNT & AUTO [id number] 05:10:00 Test Item Value Reference Range Interpretation [...] PERCENT (BEAKER) (test code = 2801) POCT-GLUCOSE [id number] 20:52:00 Test Item Value Reference Range Interpretation Comments POC-GLUCOSE METER 127 mg/dL 70-110 H : TESTED A T [address] (BEAKER) (test code [address], = 1538) [facility] 77 [address]: Magnet Valve Assembler/Techni tammy ID = [id number] for Aanu siem, felicity Tissue [id number] 11:55:00 Test Item Value Reference Range Interpretation Comments Case Report (test code Surgical Pathology = 104) Report Case: [id number] Authorizing Provider: Jada Alfonso DPM Collected: 05/21/2020 12:36 PM Ordering Location: [address] Received: 05/21/2020 12:49 PM Pathologist: Ann Meeks MD Specimen: Bone, right 1st metatarsal head bone biopsy DIAGNOSIS (test code = p1nbeSUwANEcb5boBTJdrR 3220) FuZzEwMzNcZnRuYmpcdWMx ZLuxhxNeBFcgx1WuA1QwIm AwMFxhbnNpXGRlZmxhbmcx RXGoEZW9ucLdAHVkCRunTW GjQYeaWp8rfWIhaJtgSoMu PQHnl0drjeQOdanasDf1a9 rlEEIwFcT7aRGbTRybT5mg prAonJXfPNIkVVk5uW18MH LmrQ5fiTPaZKojlfQtDsP6 GNoqFAZcDdT6AHMurRCqUA UiD6tgSNEyIVcgQNFuKJxa yPBeZAY2pKbwn0G1xRNceH ZzyNlvXpKsPwDaANIYp9Db JLl0oGaeD4PrTKKwNvB5nG QgUGFyYWdyYXBoIEZvbnQ7 wD76KQbbqlS6hPMbj2Gpw2 5bq347mE6zhIPzMRG7QFIl PNAkkWLhLYToHHX7RODdmE TtH6a9CnSuuOOkV6O9ZwOk qYHvN2P0IbLssJTuA1V8Em JybHAbDWKycYRwKu5tnPUp sEWajl6cok98UND6j7RugG uqUGC1NAU2IxVgBz5vyRBe QTDwFS0vPiMqdOJrAKGkrc 68fPvvFKvhpnFfqH4iAiBy WHIjiJHlJARgUA9tnZQdYT AmcT1ccfbnDPWsNyRybhve UCDxpPwyvyQhSg8guOzxOR D6LRhsI3veeN4rLoH1TFvp C4rhbW6oHGv0SEgnsQO0GI AmbT7eZF3tvuprw6txVvEw VX5oyhzjq0yyFoYcKM2aim k6h1eiSkQwVP2ebhjvv2zx NzIwXGhlYWRlcnkwXGZvb3 DmsfxiZMNho5NpH2WcdNic I01mhHbxO53bTORokZkmtF 0taDveeC2eEgTtYcTeVUjm bFxwbGFpblxmMVxmczIwXG tnvmkyRKUvHGkhE5swXiQr RJAwpLweIIzhg4EcKBLyDZ BiPhQbEm3XEOkcOtrZUTSt HbbKT4IcJBCBTBPVMtVZRN HJJKBZEEAQBK2TA8y0WFZb ueNrKEJyOMFUPvTeA7sTQC YRF5ENNIEAJOPDH7CYPqPI LjIuX5iFB62DFcIGZeVHEC 4FQIXFG71rFESOUtKHN6LS BaBmO1hGHGFBKFSBCxzYPE 9TVEVPTVlFTElUSVNccGFy rFtzxnNzFIrdl7CdBUygAP TwXG1fuCfdPCNvOE5gJKPc F5opvD7nmum4XiEsRPBpNg B9KFDgetR7Vxn8RHPrSJvt d8oct6ZkHDVtIBs9lTzsMk LyIROgy3ssoyUmVgAvKMLl NDDiRNCegWJvI746j6lxg0 apwwOgcQG9RBPcGOJ8VEjb wgVlzfW1QLgckTAnIyI5FL tccmVkMFxncmVlbjBcYmx1 TKPiN893HTA2kGzvj2zjFN M3XWVqQDEnRoPyUd6twIFy L309WQLzFQDRRANcjLq6QA UdmaCutiQiuAYYv403S152 e1mjTKYonxStnOkKclonq3 tvW893IABznWCczwPaWjAu QJTwxKZikIG7EBKvAJ8wxf npCOjcCAaeKAMkomW2SALd yIQfQ0TaTNHuTW8bxrujCS L0TPduNTZxLPM4SjUlPKFm o3Gyanf5OuFjfa9urj22UJ Z6y7MswUgyAGL6YJA8UgBz Ag3leLNpZCTdVI0yOsAfrP AwFJIngn81zOisRMthBIP9 BNXzdnZea4Wfs2ugDeBxsn HsU9qsA8WhQIWvRIDbHAJw XlRyrnXwh2Qmc2XnsGOniW u3u7bpGSUbWKAbnYdme2mu TAF2MBRhuHJmJ3qxtP4vJE LbNA2zdqdak6krNEhbHIxy JUAuiWF0nkM0QCDcuSYrO3 MeyF2gKEKqNLsiOYPqkvx2 AuQmMz8wiDBqdTtjIMqpVu twYWdlXHBnbmNvbnRccGdu ZGVjXHBsYWluXHBsYWluXG YwXGZzMjRccWxcbGFuZzEw MzNcaGljaFxmMVxkYmNoXG YzTAxtH4mgKrAoMiXiNmi4 GCRkuWTgBCCyUhh6UWTlwI DwESQWqMbugA9lBGEzcEjg aL3vsPZ6FQZoewGlzTPQjX 2fELWIbM5yKjI2KiJiPsL7 LTQyNDlccGFyfX0= CPT Code(s) (test code p0rwtCXpUBTkaNAtLmTiJV = 3357) GbONCdl8yhQRAilYJpOxCo MzNcZnRuYmpcdWMxXGRlZm Oro8vhf493mXJep5rgNLRl RcW7oKEhPTUxeZAvZ751ZM WpXTpam6aqx1NbBIFfyWXw c1A1VVEWenjctLj9dNwgX9 0gj0S4NlrxT4gnTQZjCENx H2PuBR6kJFNdAwo1FVH0RK Y6NKQbKUDgH9LdOE2iVDSv zXQjZGr5y4fzoAvmBJQvUS A9y3dvVBeebvRdWT3vdd7a sUo0e7ozuvViPVRfELJyiQ IRFLEmW6PvtGfpTz1unFt4 hCmjQsnoITB9Rjg0XA1dyc 79rmx1rNqfMMZzqavcTxB2 HPqaOZAmeisrFRb9CPsfVP JnbDcyMFxtYXJncjcyMFxt YXJndDcyMFxtYXJnYjcyMF clKAHxGVS1JEngd090RXF4 OFunw7ooi4uquZLxSkr0JK DoLkAkQxilPHumt2Brx0oo XOFzcs6cAPU9uVWmtOubk4 J3gNXeCOWlsXVmlyTuGIBr NeL6IMfuAE6xsh16UPUmIW S3br2wdZMvyCtflhHfbHXv GEdpW8AbSEHgr844PPSeO3 ZzTUKpd1S7seDbKdNbTJYy jPE9wiU8QXJnBHg8zFLcsg M6fqPexPVuZ2sasU82NuGp lZAtN0PwtI11TlNmrWEeC4 OwzX82JmSzbSEsL7JidW01 VtOerGYwJMQvyMWgBp1ykO YanCAjb4GcrITaWBgoC55r d551CQCunwVgC7dpkMZimj kljLBrqamxNJdwyiO2KVZz XHBsYWluXGYxXGZzMjBcbG FuZzEwMzNcaGljaFxmMVxk JzHdALSfEMhqQ5nuCrGhGf GaHJQ9AISrPszdTCelCDHb cGFyfQ== CLINICAL HISTORY (test l4aigDRyBWRdiPTvBnYhFG code = 3356) EcKPDet1wuWXZddTRhTeQn MzNcZnRuYmpcdWMxXGRlZm Vhg9omt122ePAyr1waFUVr OtB1gFShUTDdhIQjI619d9 ywh8neygVehXD4UVQgDLO1 GDfiewTjrzP7SNcwhDErGl R2MVvabyGhXHqlggXvyxRh Zvv2SRRuI023MBP3mEmfz2 nxBID0QXTlTTHpEvUeVf9b gJJgE471JWFrVECDMWEzkU o4LPLwjgBlwuDfpTQPg549 L936w9qaWTButfPruCpTiq vdc6rpX503TAEuzMDaxsSc QbWrNMGwxKSenTD2EYKiTL 3kmkswHqFpAR0dnzivOoWm MF0prhk4VtXaPI9ajusxRi NzNTvpCUSpblmxKMMex3Mk iozxZR1yA2Dle6O8hI2vaP LiPSQipUDiRkObINVufy6j hYFrRZvql1YnTKS8ggX5vG AbpDIhFDOuYX41Tfjiq0Lv PpizTWX0AJRgqmAnz6Iuz7 ncRrRvqgZgG8fjU0YzMAGf QGZoSMIeVaJfqtHwx8Fss2 GiuZKrvTc3v0pnIKDtZGUm rGjfg8qhIAS0VBUcI4I0oP Rql9tbNQztJPGbvAE1sdzu PDotLXNmxgW0ubriSIqpAD DepOJ9gwlgOBukJJIfEkP8 xvudXUxwROAjMOK0AAiyr6 51AJI7TXxaDjnjQIclVLEv bmNvbnRccGduZGVjXHBsYW luXHBsYWluXGYwXGZzMjRc nOxphAsqcE8oOvSpLhTlKB yzMK4hEZDdV3vikDAcXXWh TTWvM4ejIiRqiK9jbTcvBG igkqKgIXXwE1e7RMVaa2Dd RRRpW5Frb9kiNVJ6 SPECIMEN SOURCE (test z1szuIOeDODhnIZsKnSgPV code = 3377) RjOYLcf8zhVYDamCUeEaEf MzNcZnRuYmpcdWMxXGRlZm Fur1inr191dLArc6kzOIYy VxM9jSYzJXRnoZKbE298a8 rsc3ogefPswNF8LJUlJXX0 FGsakcYagsS5IGwiyPGfPz I5MQnfztPwOGvhqsSwzeXi Siz4AIGhH891YST4tYouv3 qvDTQ3ZVSgQCBiLhAkFi3q oZVyV009JQVgADPIFNHxkU u7DAKjpwEmxeKymCFFa277 H416e4jrRMQmbvEguTdEjb mbm3bvT507OXUpvBIfddSd SpZvXYVkjLOvwJG4QWGaOB 3tdmsxGnGaPR6zupuoKuSo QO4ttba8XoVpDC0hugmcTx HuESesPNSkmoyrGYEpd4Ct uyoaFD5lC6Uyi8Y2fP7jzJ QzAAKagYZrRwKsEHRshj2r vFBvSByjg5LrSXM9wqH2oD YxhEMyXYGhJU35Wziww9Ci TavaGMD0WYTsyoUrd7Fju3 irJnHldvXzU5ksB4RfENYe WBIsZQIpVcHfnjKpv6Ekj0 MdkVFogQh3x0lrOPWqDPDo fQzob2bbPDU0OCJeT5Z7yQ Jqi3ctHJnoVPVfpIO5viwm MEcsXOTwwqG8rnhmEGkuXN DvkLN5ytxpBRcaWCNcVjH1 xigaTNayAOSlZXB2LSbbk6 98DNS8BEwcCyaeAUqbONCt bmNvbnRccGduZGVjXHBsYW luXHBsYWluXGYwXGZzMjRc cAvnnLlgbX1sPfJnLcOhJW naEQ8qJALpX1ynmKUaJUBz JATdO1qfMbCzlB2cxAfkBM wvwhXmHOXlW1s8GPRqpTPr OLSohKCez9FnEEqvIJRbMq 4pFSPybI5op3jirJCjoB== GROSS DESCRIPTION (test o3fldLEsBBYrrLEuKvTzCU code = 1308) KyCPNcw0jfGFLyzBGaNqYm MzNcZnRuYmpcdWMxXGRlZm Mxg8lki268fIGfi9rpAJZf LsX4wKUsOWKllHLcA707m1 fmq6wksyJwkXP1JCGxPFX0 KJcadxRxepP3JZwwzNWxOi A7ASsgxoLxBEethnWyicNx Giq1MIZkX344SWU5jAjaw4 nhERV5TVUjUIDgRiEnXk3x nYQbB905VORrEKKSWAIphF w9RXLrxlRszdKfdXHYd418 N065u3cnZVSxcpUsiFbIpu ppo0wvG115IWDhmMKwjzRc VyIiEDHimOMzvLX2HGScOL 9zzxcwXnUeNK8febrtZiAw EN0haxw4SbVmAT0zkgvcGq BuEXlwNRBcibiuDNJjw1Pp fkqlUJ7aW6Dss1O3lN2pwU NgFNUmjBMpLaXwMYLtfm5z gYOdQDtkv5QgDEL7hqT8tT AokQMaEYCdQO66Aovio4Mf SbkmIGC4IGWbsxHib6Zvm3 rpZaFawgKkU7lqQ3VsFAIf DHQiYCGqCyMwznEut8Xth5 UiyOEuuLh9y0dpJLVtKBCd yExpn4xhBOE2ISXgT3G7lU Gjg9uuSCluCSWnkYX3dicl VFouXMRtxbQ7sbypEYmgAP LqaUE4tdozETpxWWJcOfA1 wvzjFYkvPHArNYT3KFchq5 28NET5LLtjGblaIMuuYTRc bmNvbnRccGduZGVjXHBsYW luXHBsYWluXGYwXGZzMjRc yDcyeGeyuP2nKlYpRfRxHN lqYF9zGQFgU9taxDHxNWDy GWYuL3uqMgUkmE0blAeuVE xmczIwIFNwZWNpbWVuIGlz GYBuA2OnvzFsCTkcXUMssw 6zgOupWMJpu8enjfA0YKYp MhBvmiJxTSCnEZAyy33ybK S3sfSqZfR9v78vfLBsOQNk TLSkj48wPTPzZXvqFT94fm DuCATdiPNnhcauGJT2LJBp TfO4BOLmMtDloOvbj2FffT b0jTUlKWCjmXCySLPhO7Lb A1himJJueBheldFdqpEwUD ZqEJB3CQVKJP9iXAUHD9Cf XHBhcn0= MICROSCOPIC DESCRIPTION l7jglLDbJJLqzICmIfWkQC (test code = 3371) QnKEIml1loOBMjgAKzKvPc MzNcZnRuYmpcdWMxXGRlZm Tcg1cvi414lCPkr2qrMFHy XdQ2rNXjRJGqhNGxE781j5 rdh9gizhCevJD5BFQiNLU3 UUqlovJpgcA7OVovsKTyJw I8PEzstyBdYUbngkIidhCm Nhn7TNHjV184PHH5hKuzd7 ngIIF5RGKdRHLjQmVqXz7s eDLbW937DMIgNMTANQUwbY b7MXLndhQkiuFapJYTm709 O393c8hgTHYwddRsjXmEtn hvm8nfB251HAGtmLKileYi NxNrISFrxXOibEY2ELLrBO 8ynaubLlJlYL3bdxclMgMq QV1sgfl8QoKxIH4pcwkrTk ZbQMuoEOOyufeyQTYsm2Wy xzyvCX4iQ2Ylr6P3lE3gqB NiUUOemOMwYyBaWTBsyc3a tCUxZHbpr5QnMFF7hiB1nV TfyWXjEAPcJQ46Vtqes8Jd MxguSMV4VTJvvxXcz3Qyt1 pfXqEjjiSpH2voV6QnERZp OJRbMTTiZrMyzgNew0Wif9 VwiQEuiJb2l8awWUYuXNWm zIsdb8whTWK8MCNcK2M8pO Onm4deNKxeLFZqnCB8mzar RIcuSTUxqqI3ssqqOAmyBZ QlkBF8tkikPVenTAJuDjT7 mczjEVqcHWYeCTB8AShhc8 60XYE3IDudJuwvRHswMIZd bmNvbnRccGduZGVjXHBsYW luXHBsYWluXGYwXGZzMjRc xPshwHjprU7bKvYfBzDsLI ikQX4wJBXgM8mlbVQeTJUz XQPuG7zfUsOuuB3yqEurAQ cmazEqEDOfjuJqcq5rXD5d XHBhcn0= Gross assessment was [facility] [place] performed at ([facility], Department = 2777) of Pathology, [address] [place] [address], [place] [address], Technical component was [facility] performed at (test code [facility] [place], = 2778) Department of Pathology, [address] [place] [address], Professional component [facility] was performed at ([facility], Department code = 2779) of Pathology, [address] [place] [address], [facility] CenterTISSUE [id number] 11:55:00Surgical Pathology Report Case: [id number] Authorizing Provider: Jada Alfonso DPM Collected: 05/21/2020 12:36 PM Ordering Location: [facility] Med Surg 5th Floor Received: 05/21/2020 12:49 PM Pathologist: Ann Meeks MD Specimen: Bone, right 1st metatarsal head bone biopsy BONE, RIGHT FIRSTMETATARSAL HEAD, BIOPSY: - BONE WITH FOCAL FIBROSIS AND CHRONIC INFLAMMATION, CONSISTENT WITH CHRONIC OSTEOMYELITIS Signing Pathologist Direct Phone Line: [phone] signed by Ann Meeks MD on 05/22/2020 at 11:55 [id number]; [id number] foot abscessRight 1st metatarsalhead bone biopsySpecimen is received in formalin designated "bone" and consists of two marin-red bone fragments measuring 1 x 0.3 x 0.3 cm, submitted after decalcification in cassette A1. SQ/plPerformed. [facility], Department of Pathology, [address] [place] [address], [facility], Department of Pathology, [address] [place] [address], Fo. [facility], Department of Pathology, [address] [place] [address], PEYK-GLUCOSE [id number] 11:41:00 Test Item Value Reference Range Interpretation Comments POC-GLUCOSE METER 84 mg/dL 70-110 : TESTED A T [facility] [address]17 (BEAKER) (test code = [address], 15[address]) [place] [address]: Magnet Valve Assembler/Techni tammy ID = [id number] for Mary Adames POCT-GLUCOSE [id number] 07:38:00 Test Item Value Reference Range Interpretation Comments POC-GLUCOSE METER 93 mg/dL 70-110 : TESTED A T [facility] [address] (BEAKER) (test code = [address], 1538) [facility] [place] [address]: Magnet Valve Assembler/Techni tammy ID = [id number] for Mary Adames BASIC METABOLIC [id number] 06:04:00 Test Item Value Reference Range Interpretation [...] S NOT APPLICABLE FOR DIALYSIS PATIEN TS. Magnet Valve Assembler ID - [id number] 05:51:00 Test Item Value Reference Range Interpretation Comments PHOSPHORUS (BEAKER) (test code = 4.4 mg/dL 2.5-4.5 604) Magnet Valve Assembler ID - ADMINCBC W/PLT COUNT & AUTO [id number] 05:30:00 Test Item Value Reference Range Interpretation [...] PERCENT (BEAKER) (test code = 2801) POCT-GLUCOSE [id number] 21:49:00 Test Item Value Reference Range Interpretation Comments POC-GLUCOSE METER 95 mg/dL 70-110 : TESTED A T [facility] [address] (BEAKER) (test code = [address], 1538) [facility] [address]: Magnet Valve Assembler/Techni tammy ID = [id number] for Jacquie Vázquez POCT-GLUCOSE [id number] 12:40:00 Test Item Value Reference Range Interpretation Comments POC-GLUCOSE METER 80 mg/dL 70-110 : TESTED A T [facility] [address] (BEAKER) (test code = [address], 1538) [place] [address]: Magnet Valve Assembler/Techni tammy ID = [id number] for Shirley an, Berenice hCG, serum, [id number] 10:42:00 Test Item Value Reference Range Interpretation Comments Preg Test, Serum (test code = Negative 0-5) [facility] CenterHCG, SERUM, [id number] 10:42:00 Test Item Value Reference Range Interpretation Comments TEST SERUM (BEAKER) (test Negative code = 584) POCT-GLUCOSE [id number] 07:56:00 Test Item Value Reference Range Interpretation Comments POC-GLUCOSE METER 105 mg/dL 70-110 : TESTED A T [facility] [address] (BEAKER) (test code [address], = 1538) [place] [address]: Magnet Valve Assembler/Techni tammy ID = [id number] for Mary Adames ABORH, [id number] 05:28:00 Test Item Value Reference Range Interpretation Comments ABO Grouping (test code = 2588) O Rh Factor (test code = 2589) POS [facility] CenterType and screen, [id number] 04:53:00 Test Item Value Reference Range Interpretation Comments ABO/RH AUTOMATED (BEAKER) (test O POSITIVE code = 2260) Ab Scrn (test code = 890-4) NEGATIVE [facility] CenterIron, TIBC, % sat. (without ferritin)2020-05-21 04:24:00 Test Item Value Reference Range Interpretation Comments Iron (test code = 2498-4) 68.0 ug/dL 45-170 TIBC (test code = 2500-7) 170 ug/dL 250-550 L Iron % Saturation (test 40 % 20-55 code = 2502-3) YAKELIN (test code = YAKELIN) Magnet Valve Assembler ID - ADMIN Lab Interpretation (test Abnormal code = 57430-4) [facility] CenterBASIC METABOLIC [id number] 04:24:00 Test Item Value Reference Range Interpretation [...] S NOT APPLICABLE FOR DIALYSIS PATIEN TS. Magnet Valve Assembler ID - ADMINIRON, TIBC, % SAT. (WITHOUT FERRITIN)2020-05-21 04:24:00 Test Item Value Reference Range Interpretation Comments IRON (BEAKER) (test code = 547) 68.0 ug/dL 45.0-170.0 TOTAL IRON BINDING CAPACITY 170 ug/dL 250-550 L (BEAKER) (test code = 769) IRON % SATURATION (2) (BEAKER) 40 % 20-55 (test code = 2590) Magnet Valve Assembler ID - [id number] 04:20:00 Test Item Value Reference Range Interpretation Comments Magnesium (test code = 2.0 mg/dL 1.5-3 94425-4) YAKELIN (test code = YAKELIN) Magnet Valve Assembler ID - ADMIN Lab Interpretation (test Normal code = 15584-0) [facility] CenterMAGNESIUM2020-10-05 04:20:00 Test Item Value Reference Range Interpretation Comments MAGNESIUM (BEAKER) (test code = 2.0 mg/dL 1.5-3.0 627) Magnet Valve Assembler ID - ADMINProthrombin time/[id number] 04:18:00 Test Item Value Reference Range Interpretation [...] Output) Lab Interpretation Normal (test code = 31081-7) [facility] CenteraPTT2020-10-05 04:18:00 Test Item Value Reference Range Interpretation Comments PTT (test code = 27.9 23.0- 35.0 sec 68325-1) YAKELIN (test code = YAKELIN) Final Information (Auto Output) Lab Interpretation (test Normal code = 33870-6) [facility] CenterPROTHROMBIN TIME/[id number] 04:18:00 Test Item Value Reference Range Interpretation Comments PROTIME (BEAKER) (test code = 759) 10.9 sec 9.3-12.0 INR (BEAKER) (test code = 370) 1.00 <=5.90 RECOMMENDED COUMADIN/WARFARIN INR THERAPY RANGESSTANDARD DOSE: 2.0 - 3.0 Includes: PROPHYLAXIS forvenous thrombosis, systemic embolization; TREATMENT for venous thrombosis and/or pulmonary embolus.HIGH RISK: Target INR is 2.5-3.5 for patients with mechanical heart valves.Final Information (Auto Output)Final Information (Auto Output)[id number] 04:18:00 Test Item Value Reference Range Interpretation Comments PARTIAL THROMBOPLASTIN TIME (BEAKER) 27.9 sec 23.0-35.0 (test code = 760) Final Information (Auto Output)[id number] 04:17:00 Test Item Value Reference Range Interpretation Comments PHOSPHORUS (BEAKER) (test code = 6.9 mg/dL 2.5-4.5 H 604) Magnet Valve Assembler ID - ADMINVANCOMYCIN LEVEL, [id number] 04:16:00 Test Item Value Reference Range Interpretation Comments VANCOMYCIN RANDOM (BEAKER) (test 13.8 ug/mL code = 523) Reference Range: No NormalsOperator ID - ADMINCBC W/PLT COUNT & AUTO [id number] 04:03:00 Test Item Value Reference Range Interpretation [...] PERCENT (BEAKER) (test code = 2801) POCT-GLUCOSE [id number] 21:19:00 Test Item Value Reference Range Interpretation Comments POC-GLUCOSE METER 118 mg/dL 70-110 H : TESTED A T [facility] [address] (BEAKER) (test code [address], = 1538) [place] [address]: Magnet Valve Assembler/Techni tammy ID = [id number] for Jacquie Vázquez POCT-GLUCOSE [id number] 16:03:00 Test Item Value Reference Range Interpretation Comments POC-GLUCOSE METER 273 mg/dL 70-110 H : TESTED A T [facility] [address] (BEAKER) (test code [address], = 1538) [place] [address]: Magnet Valve Assembler/Techni tammy ID = [id number] for Mary Adames POCT-GLUCOSE [id number] 11:32:00 Test Item Value Reference Range Interpretation Comments POC-GLUCOSE METER 224 mg/dL 70-110 H : TESTED A T [facility] [address] (BEAKER) (test code [address], = 1538) [place] [address]: Magnet Valve Assembler/Techni tammy ID = [id number] for Mary Adames POCT-GLUCOSE [id number] 07:33:00 Test Item Value Reference Range Interpretation Comments POC-GLUCOSE METER 260 mg/dL 70-110 H : TESTED A T [facility] (BEAKER) ([facility] [address] [facility]) [place] [address]: Magnet Valve Assembler/Techni tammy ID = [id number] for Mary Adames TSH/Free T4 If [id number] 07:06:00 Test Item Value Reference Range Interpretation Comments TSH (test code = 3.130 0.350- 5.500 uIU/mL 68958-1) YAKELIN (test code = YAKELIN) Magnet Valve Assembler ID - ADMIN Lab Interpretation (test Normal code = 90751-0) [facility] CenterTSH/FREE T4 IF [id number] 07:06:00 Test Item Value Reference Range Interpretation Comments THYROID STIMULATING HORMONE 3.130 uIU/mL 0.350-5.500 (BEAKER) (test code = 772) Magnet Valve Assembler ID - ADMINBASIC METABOLIC [id number] 06:52:00 Test Item Value Reference Range Interpretation [...] S NOT APPLICABLE FOR DIALYSIS PATIEN TS. Magnet Valve Assembler ID - [id number] 06:49:00 Test Item Value Reference Range Interpretation Comments MAGNESIUM (BEAKER) 1.9 mg/dL 1.5-3.0 Specimen slightly (test code = 627) hemolyzed Magnet Valve Assembler ID - [id number] 06:46:00 Test Item Value Reference Range Interpretation Comments PHOSPHORUS (BEAKER) 6.2 mg/dL 2.5-4.5 H Specimen slightly (test code = 604) hemolyzed Magnet Valve Assembler ID - ADMINCBC W/PLT COUNT & AUTO [id number] 05:25:00 Test Item Value Reference Range Interpretation [...] PERCENT (BEAKER) (test code = 2801) POCT-GLUCOSE [id number] 22:13:00 Test Item Value Reference Range Interpretation Comments POC-GLUCOSE METER 318 mg/dL 70-110 H : TESTED A T [facility] [address] (BEAKER) (test code [facility] [address], = 1538) [facility] [address]: Magnet Valve Assembler/Techni tammy ID = [id number] for Elissa Diaz POCT-GLUCOSE [id number] 16:36:00 Test Item Value Reference Range Interpretation Comments POC-GLUCOSE METER 238 mg/dL 70-110 H : Notified RN/MD: TESTED ([facility]) (test code AT [facility] [address] = [address]) [place] [address]: Magnet Valve Assembler/Techni tammy ID = [id number] for Cuate Castañeda Hepatitis B surface [id number] 12:07:00 Test Item Value Reference Range Interpretation Comments Hep B S Ab (test code = 9.4 <8.0 mIU/mL H 02523-2) YAKELIN (test code = YAKELIN) Magnet Valve Assembler ID - JOEL Lab Interpretation (test Abnormal code = 01318-6) [facility] CenterHEPATITIS B SURFACE [id number] 12:07:00 Test Item Value Reference Range Interpretation Comments HEPATITIS B SURFACE ANTIBODY 9.4 mIU/mL <8.0 H (BEAKER) (test code = 647) Magnet Valve Assembler ID - RORYGPOCT-GLUCOSE [id number] 11:31:00 Test Item Value Reference Range Interpretation Comments POC-GLUCOSE METER 170 mg/dL 70-110 H : Notified RN/MD: TESTED ([facility]) (test code AT [facility] [address] = [address]) [place] [address]: Magnet Valve Assembler/Techni tammy ID = [id number] for Cuate Castañeda VANCOMYCIN LEVEL, [id number] 09:31:00 Test Item Value Reference Range Interpretation Comments VANCOMYCIN RANDOM (BEAKER) (test 14.3 ug/mL code = 523) Reference Range: No NormalsOperator ID - ADMINBASIC METABOLIC [id number] 08:59:00 Test Item Value Reference Range Interpretation [...] S NOT APPLICABLE FOR DIALYSIS PATIEN TS. Magnet Valve Assembler ID - [id number] 08:56:00 Test Item Value Reference Range Interpretation Comments MAGNESIUM (BEAKER) (test code = 1.9 mg/dL 1.5-3.0 627) Magnet Valve Assembler ID - [id number] 08:53:00 Test Item Value Reference Range Interpretation Comments PHOSPHORUS (BEAKER) (test code = 4.7 mg/dL 2.5-4.5 H 604) Magnet Valve Assembler ID - ADMINCBC W/PLT COUNT & AUTO [id number] 08:51:00 Test Item Value Reference Range Interpretation [...] PERCENT (BEAKER) (test code = 2801) POCT-GLUCOSE [id number] 07:53:00 Test Item Value Reference Range Interpretation Comments POC-GLUCOSE METER 153 mg/dL 70-110 H : Notified RN/MD: TESTED (BEAKER) (test code AT [address] = 1538) [facility] [address]: Magnet Valve Assembler/Techni tammy ID = [id number] for Leonidasannabelle Cuate coronado SARS-CoV2/RT-PCR (Asymptomatic ONLY)2020-05-19 00:02:00 Test Item Value Reference Range Interpretation Comments SARS-COV2/RT-PCR Negative Not Detected, (test code = Negative, See 12522-1) external report for linked test SARS-COV-2 [facility] PERFORMING LAB (test code = 86421-3) YAKELIN (test code = Negative result for [...] of the Act. Fact Sheet for Healthcare Providers:https://www.[employer] [place]/sites/default/f shruthi/product/documents/F act_Sheet_HC_Providers_L poe_MJOJ-UxK-2.pdf Fact Sheet for Healthcare Patients:https://www.[employer]/sites/default/fi les/product/documents/Fa ct_Sheet_Patients_Lyra_S ARS-CoV-2.pdf Performing Laboratory:[facility] [place] [address] [facility] ([facility])2020-05-19 00:02:00 Test Item Value Reference Range Interpretation Comments SARS-COV2/RT-PCR (test Negative Not Detected, Negative, code = 9594236) See external report for linked test SARS-COV-2 PERFORMING LAB [facility] (test code = 6692179) Negative result for this test determines that [...] 564(g) of the Act.Fact Sheet for Healthcare Providers:https://www.[employer]/sites/default/files/product/documents/Fact_Shee g_MI_Mmsbdatdx_Zruv_EGOY-LuZ-7.pdfFact Sheet for Healthcare Patients:https://www.[employer].com/sites/default/files/product/ documents/Omdi_Mepgs_Vvdmizbm_Cigm_NQFJ-CoR-1.pdfPerforming Laboratory:[facility], [place] [address]TKEL-XPIGZLJ METER 2020-05-18 21:01:00 Test Item Value Reference Range Interpretation Comments POC-GLUCOSE METER 190 mg/dL 70-110 H : TESTED A T [facility] [address]17 (BENANCI) (test code [address], = 1538) [place] [address]: Magnet Valve Assembler/Techni tammy ID = [id number] for Nehal Patiño Hepatitis B surface [id number] 20:29:00 Test Item Value Reference Range Interpretation Comments HBsAg Screen (test code = Nonreactive Nonreactive 5195-3) YAKELIN (test code = YAKELIN) Magnet Valve Assembler ID - ADMIN Lab Interpretation (test Normal code = 73232-7) [facility] CenterHEPATITIS B SURFACE [id number] 20:29:00 Test Item Value Reference Range Interpretation Comments HEPATITIS B SURFACE ANTIGEN (2) Nonreactive Nonreactive (BEAKER) (test code = 2585) Magnet Valve Assembler ID - ADMINPOCT-GLUCOSE [id number] 16:43:00 Test Item Value Reference Range Interpretation Comments POC-GLUCOSE METER 211 mg/dL 70-110 H : TESTED A T [address] (BEAKER) (test code [address], = 1538) [place] [address]: Magnet Valve Assembler/Techni tammy ID = [id number] for Daryn marcanoMary MR, EXTREMITY, LOWER, WITHOUT CONTRAST, [id number] 15:44:00Recent amputation for R great toe osteomyelitis/diabetic [...] Tyler Verified Date/Time: 05/18/2020 15:44:11 Reading Location: [facility] Radiology Reading Room MR lower extremity without IV contrast right [id number] 15:44:00Interface, External Ris In - 05/18/2020 3:46 [...] Tyler Verified Date/Time: 05/18/2020 15:44:11 Reading Location: [facility] Rad[facility] 2020-05-18 12:55:00 Test Item Value Reference Range Interpretation Comments POC-GLUCOSE METER 169 mg/dL 70-110 H : TESTED A T [address] (BEAKER) (test code [address], = 1538) [facility] [place] [address]: Magnet Valve Assembler/Techni tammy ID = [id number] for Mary Adames Hepatic function [id number] 09:20:00 Test Item Value Reference Range Interpretation Comments Protein, Total (test 6.9 6.0- 8.5 gm/dL Speci men code = 2885-2) slightly hemolyzed Albumin (test code = 3.1 g/dL 3.5-5 [place] [address]-3) slightly hemolyzed Total Bilirubin (test 0.5 mg/dL [...] slightly hemolyzed YAKELIN (test code = YAKELIN) Magnet Valve Assembler ID - ADMIN Lab Interpretation Abnormal (test code = 88506-5) [facility] [id number] 09:20:00 Test Item Value Reference Range Interpretation Comments Hemoglobin A1C (test code 9.4 % 4.3-6.1 H = 4548-4) YAKELIN (test code = YAKELIN) Magnet Valve Assembler ID - ADMIN Lab Interpretation (test Abnormal code = 54097-4) [facility] [id number] 09:20:00 Test Item Value Reference Range Interpretation [...] Specimen slightly (test code = 347) hemolyzed Magnet Valve Assembler ID - [id number] 09:20:00 Test Item Value Reference Range Interpretation Comments MAGNESIUM (BEAKER) 3.8 mg/dL 1.5-3.0 H Specimen slightly (test code = 627) hemolyzed Magnet Valve Assembler ID - ADMINHEMOGLOBIN [id number] 09:20:00 Test Item Value Reference Range Interpretation Comments HEMOGLOBIN A1C (BEAKER) (test code = 9.4 % 4.3-6.1 H 368) Magnet Valve Assembler ID - ADMINC-Reactive [id number] 09:19:00 Test Item Value Reference Range Interpretation Comments CRP (test code = 676) 1.17 mg/dL 0-0.5 H YAKELIN (test code = YAKELIN) Magnet Valve Assembler ID - ADMIN Lab Interpretation (test Abnormal code = 55587-3) [facility]OLIC [id number] 09:19:00 Test Item Value Reference Range Interpretation [...] S NOT APPLICABLE FOR DIALYSIS PATIEN TS. Magnet Valve Assembler ID - ADMINC-REACTIVE [id number] 09:19:00 Test Item Value Reference Range Interpretation Comments C-REACTIVE PROTEIN (BEAKER) (test 1.17 mg/dL 0.00-0.50 H code = 676) Magnet Valve Assembler ID - ADMINVancomycin level, [id number] 09:18:00 Test Item Value Reference Range Interpretation Comments Vancomycin Tr (test code = 15.1 ug/mL 10-20 4092-3) YAKELIN (test code = YAKELIN) Magnet Valve Assembler ID - ADMIN Lab Interpretation (test Normal code = 69181-5) [facility] Center[facility] LEVEL, [id number] 09:18:00 Test Item Value Reference Range Interpretation Comments VANCOMYCIN TROUGH (BEAKER) (test 15.1 ug/mL 10.0-20.0 code = 522) Magnet Valve Assembler ID - ADMINCBC W/PLT COUNT & AUTO [id number] 09:09:00 Test Item Value Reference Range Interpretation [...] PERCENT (BEAKER) (test code = 2801) POCT-GLUCOSE [id number] 08:18:00 Test Item Value Reference Range Interpretation Comments POC-GLUCOSE METER 177 mg/dL 70-110 H : TESTED A T [address] (BEAKER) (test code [address], = 1538) [facility] [address]: Magnet Valve Assembler/Techni tammy ID = [id number] for Mary Adames RAD, CHEST, 1 VIEW, NON [id number] 08:11:00Reason for exam:->shortness of breathShould this be [...] Bueno Verified Date/Time: 05/18/2020 08:11:49 Reading Location: [facility] Radiology Reading Room Electronically signedby: MARYCHUY BUENO M.D. on 05/18/2020 08:11 AMXR chest 1 view portable / [id number] 08:11:00Interface, External Ris In - 05/18/2020 8:13 [...] Bueno Verified Date/Time: 05/18/2020 08:11:49 Reading Location: [facility] Radiology Reading Room [facility] [id number] 00:00:00Ordered by an unspecified [facility]AT[facility] SURF AB, [id number] 18:16:00 Test Item Value Reference Range Interpretation [...] ~~~~~~~~ ~~~~~~~~~~~~~~~ ~~~~~~~~ ~ AG HEPATITIS B [id number] 18:16:00 Test Item Value Reference Range Interpretation Comments AG HEPATITIS B SURFACE (test code = NEGATIVE NONREACTIVE HBSAG) HIV 12 AB [id number] 18:16:00 Test Item Value Reference Range Interpretation Comments HIV 1 2 COMBO AG/AB SCREEN AB/AG NON REACTIVE NONREACTIVE (test code = [id number]) HEPATITIS B SURF AB, [id number] 17:51:00 Test Item Value Reference Range Interpretation Comments HEPATITIS B SURF AB, QUANT (test code mIU/mL = HBSABQ) AG HEPATITIS B [id number] 17:51:00 Test Item Value Reference Range Interpretation Comments AG HEPATITIS B SURFACE (test code = NEGATIVE NONREACTIVE HBSAG) HIV 12 AB [id number] 17:51:00 Test Item Value Reference Range Interpretation Comments HIV 1 2 COMBO AG/AB SCREEN AB/AG NON REACTIVE NONREACTIVE (test code = [id number]) HEPATITIS B SURF AB, [id number] 17:39:00 Test Item Value Reference Range Interpretation Comments HEPATITIS B SURF AB, QUANT (test code mIU/mL = HBSABQ) AG HEPATITIS B [id number] 17:39:00 Test Item Value Reference Range Interpretation Comments AG HEPATITIS B SURFACE (test code = NEGATIVE NONREACTIVE HBSAG) HIV 12 AB [id number] 17:39:00 Test Item Value Reference Range Interpretation Comments HIV 1 2 COMBO AG/AB SCREEN (test code = NONREACTIVE [id number]) GLUCOSE BEDSIDE [id number] 12:00:00 Test Item Value Reference Range Interpretation Comments GLUCOSE BEDSIDE TESTING (test code 136 MG/DL 60-99 H = GLUBED) GLUCOSE BEDSIDE [id number] 21:08:00 Test Item Value Reference Range Interpretation Comments GLUCOSE BEDSIDE TESTING (test code = 84 MG/DL 60-99 N GLUBED) BASIC METABOLIC [id number] 16:40:00 Test Item Value Reference Range Interpretation [...] 9.0 MG/DL 8.4-10.2 N CA) HCG SERUM [id number] 16:40:00 Test Item Value Reference Range Interpretation Comments HCG SERUM QUAL (test code = HCGQL) NEGATIVE NEGATIVE A PROTHROMBIN [id number] 16:32:00 Test Item Value Reference Range Interpretation [...] sunshine embolism. 3.0 - 4.5 Comments to Food Service Associate: PREOPPTT [id number] 16:32:00 Test Item Value Reference Range Interpretation Comments PTT ACTIVATED (test code = APTT) 30.3 SECONDS 22.0-33.0 N Comments to Food Service Associate: PREOPBASIC METABOLIC [id number] 16:32:00 Test Item Value Reference Range Interpretation [...] code = CA) MG/DL 8.7-9.7 HCG SERUM [id number] 16:32:00 Test Item Value Reference Range Interpretation Comments HCG SERUM QUAL (test code = HCGQL) NEGATIVE NEGATIVE A BASIC METABOLIC [id number] 16:31:00 Test Item Value Reference Range Interpretation [...] code = CA) MG/DL 8.7-9.7 HCG SERUM [id number] 16:31:00 Test Item Value Reference Range Interpretation Comments HCG SERUM QUAL (test code = HCGQL) NEGATIVE CBC W/AUTO [id number] 16:25:00 Test Item Value Reference Range Interpretation [...] 0.00 K/mm3 0.0-0.1 N NRBC#) GLUCOSE BEDSIDE [id number] 18:41:00 Test Item Value Reference Range Interpretation Comments GLUCOSE BEDSIDE TESTING (test code = 83 MG/DL 60-99 N GLUBED) BASIC METABOLIC [id number] 15:04:00 Test Item Value Reference Range Interpretation [...] 9.1 MG/DL 8.4-10.2 N CA) BASIC METABOLIC [id number] 15:00:00 Test Item Value Reference Range Interpretation [...] code = CA) MG/DL 8.7-9.7 HCG SERUM [id number] 14:59:00 Test Item Value Reference Range Interpretation Comments HCG SERUM QUAL (test code = HCGQL) NEGATIVE NEGATIVE A PROTHROMBIN [id number] 14:56:00 Test Item Value Reference Range Interpretation [...] syste sunshine embolism. 3.0 - 4.5 PTT [id number] 14:56:00 Test Item Value Reference Range Interpretation Comments PTT ACTIVATED (test code = APTT) 27.9 SECONDS 22.0-33.0 N CBC W/AUTO [id number] 14:43:00 Test Item Value Reference Range Interpretation [...] N NRBC#) RAD, CHEST, 1 VIEW, NON [id number] 11:27:00Reason for exam:->r/o pneumoniaShould this be performed [...] KG [facility] Radiology Reading Room POCT-GLUCOSE [id number] 08:34:00 Test Item Value Reference Range Interpretation Comments POC-GLUCOSE METER 126 mg/dL 70-110 H : TESTED A T [facility] 6720 (BEAKER) (test code = [place], 1538) [address]: Magnet Valve Assembler/Techni tammy ID = [id number] for Baldomero Carney BASIC METABOLIC [id number] 06:56:00 Test Item Value Reference Range Interpretation [...] S NOT APPLICABLE FOR DIALYSIS PATIEN TS. [id number] 06:45:00 Test Item Value Reference Range Interpretation Comments PHOSPHORUS (BEAKER) (test code = 4.6 mg/dL 2.3-4.7 604) [id number] 06:45:00 Test Item Value Reference Range Interpretation Comments MAGNESIUM (BEAKER) (test code = 2.0 mg/dL 1.6-2.6 627) CBC W/PLT COUNT & AUTO [id number] 05:35:00 Test Item Value Reference Range Interpretation [...] PERCENT (BEAKER) (test code = 2801) PROTHROMBIN [id number] 05:24:00 Test Item Value Reference Range Interpretation [...] is2.5-3.5 for patients wiht mechanical heart valves.POCT-GLUCOSE [id number] 21:08:00 Test Item Value Reference Range Interpretation Comments POC-GLUCOSE METER 191 mg/dL 70-110 H : TESTED A T [facility] 6720 (BEAKER) (test code = [facility], 1538) [address]: Magnet Valve Assembler/Techni tammy ID = [id number] for Keith Quintero POCT-GLUCOSE [id number] 17:20:00 Test Item Value Reference Range Interpretation Comments POC-GLUCOSE METER 168 mg/dL 70-110 H : TESTED A T [facility] 6720 (BEAKER) (test code = [facility], 1538) [address]: Magnet Valve Assembler/Techni tammy ID = [id number] for HU NT, MAVIS POCT-GLUCOSE [id number] 12:49:00 Test Item Value Reference Range Interpretation Comments POC-GLUCOSE METER 221 mg/dL 70-110 H : TESTED A T [facility] 6720 (BEAKER) (test code = [facility], 1538) [address]: Magnet Valve Assembler/Techni tammy ID = [id number] for HU NT, MAVIS SCREEN, [id number] 11:54:00 Test Item Value Reference Range Interpretation Comments TEST URINE (BEAKER) (test Negative code = 583) POCT-GLUCOSE [id number] 09:11:00 Test Item Value Reference Range Interpretation Comments POC-GLUCOSE METER 112 mg/dL 70-110 H : TESTED A T [facility] 6720 (BEAKER) (test code = [facility], 1538) [address]: Magnet Valve Assembler/Techni tammy ID = [id number] for MAVIS GARRIDO BASIC METABOLIC [id number] 06:50:00 Test Item Value Reference Range Interpretation [...] S NOT APPLICABLE FOR DIALYSIS PATIEN TS. [id number] 06:38:00 Test Item Value Reference Range Interpretation Comments PHOSPHORUS (BEAKER) (test code = 3.9 mg/dL 2.3-4.7 604) [id number] 06:38:00 Test Item Value Reference Range Interpretation Comments MAGNESIUM (BEAKER) (test code = 1.9 mg/dL 1.6-2.6 627) PROTHROMBIN [id number] 06:12:00 Test Item Value Reference Range Interpretation [...] mechanical heart valves.CBC W/PLT COUNT & AUTO [id number] 06:06:00 Test Item Value Reference Range Interpretation [...] 0-1 PERCENT (BEAKER) (test code = 2801) [id number] 04:27:00 Test Item Value Reference Range Interpretation Comments RPR SCREEN (TAINA) (test code = Nonreactive Nonreactive 420) MR, MRA, BRAIN, WITHOUT [id number] 03:28:00Reason for exam:- >StrokeWhat is the patient's [...] 07/17/2019 03:28:33 MR, MRA, NECK, WITHOUT IV [id number] 03:28:00FINAL REPORT MR, BRAIN, WITHOUT CONTRAST, MR, [...] Verified Date/Time: 07/17/2019 03:28:33 MR, BRAIN, WITHOUT [id number] 03:28:00 Reason for exam:->StrokeWhat is the patient's [...] Ortiz MDReport Verified Date/Time: 07/17/2019 03:28:33 POCT-GLUCOSE [id number] 21:16:00 Test Item Value Reference Range Interpretation Comments POC-GLUCOSE METER 143 mg/dL 70-110 H : TESTED A T [facility] 6720 (BEAKER) (test code = [facility], 1538) [address]: Magnet Valve Assembler/Techni tammy ID = [id number] for JANELL GEORGE POCT-GLUCOSE [id number] 17:33:00 Test Item Value Reference Range Interpretation Comments POC-GLUCOSE METER 108 mg/dL 70-110 : TESTED A T [facility] 6720 (BEAKER) (test code = [facility], 1538) [address]: Magnet Valve Assembler/Techni tammy ID = [id number] for BETSEY AVELINO TAVON JJ POCT-GLUCOSE [id number] 17:25:00 Test Item Value Reference Range Interpretation Comments POC-GLUCOSE METER 155 mg/dL 70-110 H : TESTED A T [facility] 6720 (BEAKER) (test code = [facility], 1538) [address]: Magnet Valve Assembler/Techni tammy ID = [id number] for SIMON CHO HEPATITIS B SURFACE [id number] 14:30:00 Test Item Value Reference Range Interpretation Comments HEPATITIS B SURFACE ANTIGEN (2) Nonreactive Nonreactive (BEAKER) (test code = 2585) POCT-GLUCOSE [id number] 12:17:00 Test Item Value Reference Range Interpretation Comments POC-GLUCOSE METER 146 mg/dL 70-110 H : TESTED A T [facility] 6720 (BEAKER) (test code = [facility], 1538) [address]: Magnet Valve Assembler/Techni tammy ID = [id number] for MAVIS GARRIDO BASIC METABOLIC [id number] 09:26:00 Test Item Value Reference Range Interpretation [...] NOT APPLICABLE FOR DIALYSIS PATIEN TS. POCT-GLUCOSE [id number] 08:27:00 Test Item Value Reference Range Interpretation Comments POC-GLUCOSE METER 106 mg/dL 70-110 : TESTED A T [facility] 6720 (BEAKER) (test code = [place] [facility], 1538) [address]: Magnet Valve Assembler/Techni tammy ID = [id number] for SIMON CHO POCT-GLUCOSE [id number] 07:46:00 Test Item Value Reference Range Interpretation Comments POC-GLUCOSE METER 171 mg/dL 70-110 H : TESTED A T [facility] 6720 ([facility]) (test code [facility], = 1538) [address]: Magnet Valve Assembler/Techni tammy ID = [id number] for YASMINE VO RAD, CHEST, 1 VIEW, NON [id number] 07:36:00Reason for exam:- >baselineShould this be performed [...] MDReport Verified Date/Time: 07/16/2019 07:36:01 Reading Location: [facility] B1 C013Y CT Body Reading Room HEMOGLOBIN [id number] 06:42:00 Test Item Value Reference Range Interpretation Comments HEMOGLOBIN A1C (BEAKER) (test code = 9.5 % 4.3-6.1 H 368) BASIC METABOLIC [id number] 06:27:00 Test Item Value Reference Range Interpretation [...] DIALYSIS PATIEN TS. HIV-1 ANTIGEN WITH HIV-1/2 [id number] 05:52:00 Test Item Value Reference Range Interpretation Comments HIV-1 ANTIGEN WITH HIV 1\\T\\2 Nonreactive Nonreactive ANTIBODY (2) (BEAKER) (test code = 2586) POCT-GLUCOSE [id number] 05:38:00 Test Item Value Reference Range Interpretation Comments POC-GLUCOSE METER 420 mg/dL 70-110 HH : Notified RN/MD: TESTED (BEAKER) (test code AT [facility] [address] = 1538) [place], [address]: Magnet Valve Assembler/Techni tammy ID = [id number] for YASMINE VO TSH/FREE T4 IF [id number] 05:11:00 Test Item Value Reference Range Interpretation Comments THYROID STIMULATING HORMONE 0.87 uIU/mL 0.35-4.94 (BEAKER) (test code = 772) VITAMIN B12 AND [id number] 05:11:00 Test Item Value Reference Range Interpretation Comments VITAMIN B12 (BEAKER) (test code = 525 pg/mL 213-816 774) FOLATE (BEAKER) (test code = 362) 6.5 ng/mL >=7.0 L BASIC METABOLIC [id number] 04:57:00 Test Item Value Reference Range Interpretation [...] S NOT APPLICABLE FOR DIALYSIS PATIEN TS. [id number] 04:47:00 Test Item Value Reference Range Interpretation Comments PHOSPHORUS (BEAKER) (test code = 5.5 mg/dL 2.3-4.7 H 604) [id number] 04:47:00 Test Item Value Reference Range Interpretation Comments MAGNESIUM (BEAKER) (test code = 2.0 mg/dL 1.6-2.6 627) LIPID [id number] 04:47:00 Test Item Value Reference Range Interpretation [...] 130-159 High 160-189 Very High >=190HEPATIC FUNCTION [id number] 04:47:00 Test Item Value Reference Range Interpretation [...] = 99 U/L 6-55 H 347) PROTHROMBIN [id number] 04:11:00 Test Item Value Reference Range Interpretation [...] mechanical heart valves.CBC W/PLT COUNT & AUTO [id number] 04:03:00 Test Item Value Reference Range Interpretation [...] 417) IMMATURE GRANULOCYTES-RELATIVE 0 % 0-1 PERCENT ([facility]) (test code = 2801) POCT-GLUCOSE [id number] 03:47:00 Test Item Value Reference Range Interpretation Comments POC-GLUCOSE METER > mg/dL 70-110 HH : Notified RN/MD: TESTED ([facility]) (test code = AT [facility] [facility] [place] [address]: Magnet Valve Assembler/Techni tammy ID = [id number] for SYLVIA JONES FACTOR 5 LEIDEN PCR (THROMBOTIC RISK)2017-03-24 19:24:00 Test Item Value Reference Range Interpretation Comments FACTOR V LEIDEN Negative for the R506Q ([facility]) (test code = (Factor V Leiden) 718) mutation [id number] Martínez Wang MD ([facility]) (test code = (electronic signature) 4772) This test is a genotyping assay which [...] developed and its performance characteristics [facility], Section of Molecular Pathology. It has not been cleared or approved by the U.S. Food and Drug Administration (FDA), since FDA approval is not requ ired for clinical use of the test. Validation was done as required by the Clinical Laboratory Improvement Amendments of 1988.POCT-GLUCOSE [id number] 07:28:00 Test Item Value Reference Range Interpretation Comments POC-GLUCOSE METER 200 mg/dL 70-110 H TESTED AT [facility] 6720 ([facility]) (test code = [facility] 1538) [address] POCT-GLUCOSE [id number] 21:18:00 Test Item Value Reference Range Interpretation Comments POC-GLUCOSE METER 211 mg/dL 70-110 H TESTED AT [facility] 6720 ([facility]) (test code = [facility] 1538) [address] PROTEIN, RANDOM [id number] 19:43:00 Test Item Value Reference Range Interpretation Comments PROTEIN, URINE ([facility]) (test code 286 mg/dL 0-14 H = 1569) CREATININE, RANDOM [id number] 18:27:00 Test Item Value Reference Range Interpretation [...] Normal Hexagonal (BEAKER) (test code = Phospholipid 324506) [id number] Martínez Wang MD ([employer]) (test code = (electronic 7790) signature) DRVV SCREEN RATIO 0.84 <1.20 (BEAKER) (test code = 2707) Effective 12/20/2013: Test Method ChangeDRVV Screen Ratio, DRVV 1/1 Screen Ratio, DRVV Confirm Ratio,DRVV Normalized Ratio Reference Range: <1.2Protime Reference Range ChangeNew: 11.7-14.7 Previous: 9.8-12.0PTT Reference Range ChangeNew: 22.5-36.0 Previous: 25.8-34.5URINE [id number] 11:40:00 Test Item Value Reference Range Interpretation Comments CULTURE (BEAKER) (test 20-29,000 col/mL skin code = 1095) lei POCT-GLUCOSE [id number] 08:33:00 Test Item Value Reference Range Interpretation Comments POC-GLUCOSE METER 293 mg/dL 70-110 H TESTED AT [facility] 6720 ([employer]) (test code = [place] 153) [address] VITAMIN D, 63-[id number] 07:49:00 Test Item Value Reference Range Interpretation Comments VITAMIN D 25-OH (BEAKER) (test code = < ng/mL 13.0-47.8 L 0054) CBC W/PLT COUNT & AUTO [id number] 05:59:00 Test Item Value Reference Range Interpretation [...] (BEAKER) (test code = 2801) BASIC METABOLIC [id number] 05:38:00 Test Item Value Reference Range Interpretation [...] S NOT APPLICABLE FOR DIALYSIS PATIEN TS. [id number] 05:37:00 Test Item Value Reference Range Interpretation Comments PHOSPHORUS (BEAKER) (test code = 4.1 mg/dL 2.3-4.7 604) [id number] 05:37:00 Test Item Value Reference Range Interpretation Comments MAGNESIUM (BEAKER) (test code = 1.7 mg/dL 1.6-2.6 627) PTH, [id number] 05:34:00 Test Item Value Reference Range Interpretation Comments PARATHYROID HORMONE INTACT 57.2 pg/mL 8.5-72.5 (BEAKER) (test code = 577) Effective 07/04/2014: Reference Range ChangeNew: 8.5-72.5 Previous: 15.0-90.0 CARDIOLIPIN ANTIBODIES, IGG AND [id number] 22:36:00 Test Item Value Reference Range Interpretation Comments ANTICARDIOLIPIN IGG ANTIBODY (BEAKER) < GPL (test code = 712) ANTICARDIOLIPIN IGM ANTIBODY (BEAKER) 2.8 MPL (test code = 713) Anticardiolipin IgG Result Interpretation:NEG: <20 GPL; U/mlPOS: >/=20 GPL; U/mlAnticardiolipin IgM Result Interpretation:NEG: <20 MPL; U/mlPOS: >/=20 MPL; U/mlPOCT-GLUCOSE [id number] 21:25:00 Test Item Value Reference Range Interpretation Comments POC-GLUCOSE METER 198 mg/dL 70-110 H TESTED AT [place] [address] ([facility]) (test code = [facility] 1538) [address] POCT-GLUCOSE [id number] 16:29:00 Test Item Value Reference Range Interpretation Comments POC-GLUCOSE METER 296 mg/dL 70-110 H TESTED AT [place] [address] ([facility]) (test code = [facility] 1538) [address] ANTI-NUCLEAR ANTIBODY (MARY)2017-03-18 15:30:00 Test Item Value Reference Range Interpretation Comments ANTI-NUCLEAR ANTIBODY (MARY) ([facility]) Negative Negative (test code = 418) HEXAGONAL [id number] 13:21:00 Test Item Value Reference Range Interpretation Comments HEXAGONAL PHOSPHOLIPID ([facility]) Negative (test code = 1790) POCT-GLUCOSE [id number] 12:15:00 Test Item Value Reference Range Interpretation Comments POC-GLUCOSE METER 140 mg/dL 70-110 H TESTED AT [place] [address] ([facility]) (test code = [facility] 1538) [address] PROTEIN C [id number] 11:44:00 Test Item Value Reference Range Interpretation Comments PROTEIN C ACTIVITY (BEAKER) (test 155.0 % 70.0-130.0 H code = 582) Effective 12/20/2013: Reference Range Change-Adult onlyNew: 70.0-130.0 Previous: 70.0-140.0See Protein C Antigen.ANTITHROMBIN [id number] 11:43:00 Test Item Value Reference Range Interpretation Comments ANTITHROMBIN III ACTIVITY (BEAKER) 87.0 % 80.0-120.0 (test code = 711) Effective 12/20/2013: Reference Range Change-Adult onlyNew: 80.0-120.0 Previous: 90.0-128.0POCT-GLUCOSE [id number] 08:17:00 Test Item Value Reference Range Interpretation Comments POC-GLUCOSE METER 107 mg/dL 70-110 TESTED AT [facility] 6720 (BEAKER) (test code = [place] 1538) [address] BASIC METABOLIC [id number] 06:32:00 Test Item Value Reference Range Interpretation [...] PATIEN TS. CBC W/PLT COUNT & AUTO [id number] 05:56:00 Test Item Value Reference Range Interpretation [...] PERCENT (BEAKER) (test code = 2801) POCT-GLUCOSE [id number] 04:32:00 Test Item Value Reference Range Interpretation Comments POC-GLUCOSE METER 107 mg/dL 70-110 TESTED AT [place] [address] ([facility]) (test code = [place] 1538) [address] POCT-GLUCOSE [id number] 22:21:00 Test Item Value Reference Range Interpretation Comments POC-GLUCOSE METER 118 mg/dL 70-110 H TESTED AT [place] [address] ([facility]) (test code = [place] 1538) [address] POCT-GLUCOSE [id number] 21:22:00 Test Item Value Reference Range Interpretation Comments POC-GLUCOSE METER 52 mg/dL 70-110 L Notified Isabel Ro MD/TESTED AT ([facility]) (test code = [place] [address] [address] 1538) [facility] [address] MICROALBUMIN, RANDOM [id number] 17:57:00 Test Item Value Reference Range Interpretation Comments MICROALBUMIN URINE (BEAKER) (test > mg/dL code = 1794) Reference Range: No NormalsURINALYSIS W/ [id number] 17:36:00 Test Item Value Reference Range Interpretation [...] 516) SOURCE(BEAKER) (test code = Urine, Voided 2557) SCREEN, [id number] 17:36:00 Test Item Value Reference Range Interpretation Comments TEST URINE (BEAKER) (test Negative code = 583) CREATININE, RANDOM [id number] 17:35:00 Test Item Value Reference Range Interpretation Comments CREATININE URINE (BEAKER) (test 33.9 mg/dL code = 375) Reference Range: No NormalsSODIUM, RANDOM [id number] 17:35:00 Test Item Value Reference Range Interpretation Comments SODIUM URINE (BEAKER) (test code = 63 meq/L 243) Reference Range: No NormalsPOCT-GLUCOSE [id number] 17:34:00 Test Item Value Reference Range Interpretation Comments POC-GLUCOSE METER 118 mg/dL 70-110 H TESTED AT [place] [address] ([facility]) [facility] 1538[facility] [address] POCT-GLUCOSE [id number] 13:28:00 Test Item Value Reference Range Interpretation Comments POC-GLUCOSE METER 71 mg/dL 70-110 TESTED AT [place] [address] ([facility]) (test code = [facility] [address] 1538) POCT-GLUCOSE [id number] 10:37:00 Test Item Value Reference Range Interpretation Comments POC-GLUCOSE METER 144 mg/dL 70-110 H TESTED AT [place] [address] ([facility]) (test code = [facility] 1538) [address] POCT-GLUCOSE [id number] 07:18:00 Test Item Value Reference Range Interpretation Comments POC-GLUCOSE METER 60 mg/dL 70-110 L TESTED AT [place] [address] ([facility]) (test code = [facility] [address] 1538) CBC W/PLT COUNT & AUTO [id number] 05:51:00 Test Item Value Reference Range Interpretation Comments WHITE BLOOD CELL COUNT (AKER) 11.4 K/ L 3.5-10.5 H (test code = 775) RED BLOOD CELL COUNT ([facility]) 3.81 M/ L 3.93-5.22 L (test [...] (BEAKER) (test code = 2801) BASIC METABOLIC [id number] 05:51:00 Test Item Value Reference Range Interpretation [...] NOT APPLICABLE FOR DIALYSIS PATIEN TS. POCT-GLUCOSE [id number] 21:41:00 Test Item Value Reference Range Interpretation Comments POC-GLUCOSE METER 287 mg/dL 70-110 H TESTED AT [facility] 6720 (BEAKER) (test code = [place] 1538) [address] BASIC METABOLIC [id number] 12:35:00 Test Item Value Reference Range Interpretation [...] report . CBC W/PLT COUNT & AUTO [id number] 04:54:00 Test Item Value Reference Range Interpretation [...] 0-1 PERCENT (BEAKER) (test code = 2801) [id number] 20:17:00 Test Item Value Reference Range Interpretation Comments RPR SCREEN (BEAKER) (test code = Nonreactive Nonreactive 420) POCT-GLUCOSE [id number] 18:09:00 Test Item Value Reference Range Interpretation Comments POC-GLUCOSE METER 215 mg/dL 70-110 H TESTED AT [facility] 6720 (BEAKER) (test code = [place] 1538) [address] CBC W/PLT COUNT & AUTO [id number] 11:54:00 Test Item Value Reference Range Interpretation [...] (BEAKER) (test code = Normal 762) SEDIMENTATION [id number] 10:27:00 Test Item Value Reference Range Interpretation Comments SEDIMENTATION RATE, ERYTHROCYTE 79 mm/HR 0-20 H (BEAKER) (test code = 766) HEMOGLOBIN [id number] 09:33:00 Test Item Value Reference Range Interpretation Comments HEMOGLOBIN A1C (BEAKER) (test code = 9.8 % 4.3-6.1 H 368) VITAMIN [id number] 09:14:00 Test Item Value Reference Range Interpretation Comments VITAMIN B12 (BEAKER) (test code = 1790 pg/mL 213-816 H 774) TSH/FREE T4 IF [id number] 09:14:00 Test Item Value Reference Range Interpretation Comments THYROID STIMULATING HORMONE 1.08 uIU/mL 0.35-4.94 (BEAKER) (test code = 772) BASIC METABOLIC [id number] 08:52:00 Test Item Value Reference Range Interpretation [...] DATA TO CALCULA TE ESTIMATED GFR. FastingLIPID [id number] 08:51:00 Test Item Value Reference Range Interpretation [...] High 160-189 Very High >=190 FastingHCG, QUANTITATIVE, [id number] 01:43:00 Test Item Value Reference Range Interpretation Comments GONADOTROPIN, CHORIONIC (HCG) QUANT < mIU/mL 0-10 (BEAKER) (test code = 649) Non- Females: <10 mIU/mL Females: Gestation Age Reference Range(mIU/mL) 0.2-1 Week 5-50 1-2 Weeks 50-500 2-3 Weeks 100-5,000 3-4Weeks 500-10,000 4-5 Weeks 1,000-50,000 5-6 Weeks 10,000-100,000 6-8 Weeks 15,000-200,000 2-3 Months 10,000-100,000COMPREHENSIVE METABOLIC [id number] 21:57:00 Test Item Value Reference Range Interpretation [...] 358) GLUCOSE RANDOM 285 mg/dL 70-105 H ([facility]) (test code = 652) CALCIUM (BEAKER) 7.9 mg/dL 8.4-10.2 L (test code = 697) AST (SGOT) (BEAKER) 16 U/L 5-34 (test code = 353) ALT (SGPT) (BEAKER) 14 U/L 6-55 (test code = 347) EGFR ([facility]) (test mL/min/1.73 INSUFFIC IENT code = 1092) sq m CLINICAL DATA T O CALCULATE ESTIM ATED GFR. Unit CollectPOCT-GLUCOSE [id number] 21:50:00 Test Item Value Reference Range Interpretation Comments POC-GLUCOSE METER 278 mg/dL 70-110 H TESTED AT [facility] 6726 ([facility]) (test code = [place] 1538) [id number]
--- NOTE | 2020-08-15 16:53 | RAD REPORT ---
EXAM DESCRIPTION: CT - Head Brain Wo Cont - 08/15/2020 4:29 pm CLINICAL HISTORY: CONFUSED Headache, drowsiness COMPARISON: Head Brain Wo Cont dated 07/05/2020; Head Brain Wo Cont dated 02/29/2020; Foot Right Wo C ont dated 07/17/2020 TECHNIQUE: All CT scans are performed using dose optimization technique as appropriate and may inclu de automated exposure control or mA/KV adjustment according to patient size. FINDINGS: No intracranial hemorrhage, hydrocephalus or extra-axial fluid collection.Mild generalized brain atrophy is present with mild periventricular and deep white matter chronic microvascular ische sunshine changes.No areas of brain edema or evidence of midline shift. The paranasal sinuses and mastoids are clear. The calvarium is intact. Chronic volume loss and calcif ication of the globes. IMPRESSION: No acute intracranial abnormality.
--- NOTE | 2020-08-15 17:00 | RAD REPORT ---
EXAM DESCRIPTION: CT - Stone Protocol - 08/15/2020 4:37 pm CLINICAL HISTORY: Flank pain. CONSTIPATION COMPARISON: Abdomen Pelvis Wo Contrast dated 02/21/2020 TECHNIQUE: Axial images were obtained without oral or IV contrast. Lack of contrast limits solid org an and vascular assessment. The [id number] spans the entirety of the system partially obscuring uppermost abdomen and lung bases. Coronal reformatted images were obtained and reviewed. All CT scans are performed using dose optimization technique as appropriate and may include automated exposure control or mA/KV adjustment according to patient size. FINDINGS: Mild linear subsegmental atelectasis is present in both lung bases. Imaged portions of the liver and spleen show no suspicious findings on non-contrast imaging.Cholecyst ectomy clips. The pancreas and adrenal glands are normal. No pathologic lymphadenopathy in the abdome n or pelvis. No urinary tract stones or obstructive uropathy. No bowel obstruction, free air, free fluid or abscess. There is significant retained stool in the rec tosigmoid colon.Mild inflammation is seen in the surrounding fat. Enlarged calcified multi fibroid uterus noted. No fracture seen. IMPRESSION: Significant fecal retention rectosigmoid colon with surrounding inflammation in the pres acral fat suggests stercoral colitis.
--- NOTE | 2020-08-15 17:07 | RAD REPORT ---
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 Both a sesamo id bones remain present with medial sesamoid likely fractured. There is a large amount gas present throughout the forefoot with soft tissue swelling present. Thicke salvatore of the plantar and dorsal soft tissues of the forefoot noted. Small focal linear gas bubbles are also present within the actual bone of the distal second metatarsal and within the medullary canal o f the proximal phalanx of the second toe. This degree of soft tissue gas as well as intraosseous gas is unusual even in the postoperative setting and likely represents infection related to gas-forming o rganism. Significant vascular calcifications are seen. IMPRESSION: Large amount of soft tissue gas is present in the foot as detailed with intraosseous gas also noted. The degree of gas formation is greater than typically seen from postoperative status and is very suspicious for infection with a gas-forming organism. Advise direct clinical assessment.
[2020-08-15] MEDS ORDERED: BISACODYL 10 MG RECTAL SUPP ONE (18:48)
[2020-08-15] MEDS ORDERED: PIPER/TAZO/NS 3.375gm 3.375 GM/100 ML BAG ONE (18:49)
[2020-08-15 19:15] LABS: Urine Blood TRACE (NEG); Urine Glucose 2+ (NEG); Urine Protein 3+ (NEG)
--- NOTE | 2020-08-15 19:23 | EDPHYS ---
Physician Documentation [facility] Name: Archana Woo Age: 44 yrs Sex: Female : 1975 Arrival Date: 08/15/2020 Time: 15:13 Bed 27 Private MD: ED Physician Griffin Cook HPI: 08/15 19:12 This 44 yrs old Female presents to ER via Wheelchair with complaints of Wound snw Check, Constipation. 19:12 Patient presents to ED for recheck of: cellulitis. The affected area is on the right snw foot. Previous treatment: arterial embolization, right great toe amputation, right forefoot debridement. Progress: The patient reports decreased black coloration. The patient has not experienced similar symptoms in the past. The patient has been recently seen by a physician: Dr. Nunes with similar presenting complaints. Historical: - Allergies: 15:38 No Known Allergies; aa5 - PMHx: 15:37 BLIND; CVA; Depression; Diabetes - NIDDM; GERD; Hyperlipidemia; Hypertension; left arm aa5 paralysis; neuropathy; THYROID CANCER; TIA; Dialysis MWF; - PSHx: 15:39 Left dialysis fistula; aa5 - Immunization history:: Adult Immunizations unknown. - Social history:: Smoking status: Reported history of juuling and/or vaping. ROS: 19:11 Constitutional: Negative for fever, chills, and weight loss, Eyes: Negative for injury, snw pain, redness, and discharge, ENT: Negative for injury, pain, and discharge, Neck: Negative for injury, pain, and swelling, Cardiovascular: Negative for chest pain, palpitations, and edema, Respiratory: Negative for shortness of breath, cough, wheezing, and pleuritic chest pain, Abdomen/GI: Negative for abdominal pain, nausea, vomiting, diarrhea, and constipation, Back: Negative for injury and pain, : Negative for injury, bleeding, discharge, and swelling, Psych: Negative for depression, anxiety, suicide ideation, homicidal ideation, and hallucinations. 19:11 MS/extremity: Positive for amputation to right great toe/debridement last week of right foot. 19:11 Skin: Positive for worsening wound to right foot. 19:12 Neuro: Positive for altered mental status, x 2 days. snw Exam: 17:52 Constitutional: This is a well developed, well nourished patient who is awake, alert, snw and in no acute distress. Head/Face: Normocephalic, atraumatic. Eyes: Pupils equal round and reactive to light, extra-ocular motions intact. Lids and lashes normal. Conjunctiva and sclera are non-icteric and not injected. Cornea within normal limits. Periorbital areas with no swelling, redness, or edema. ENT: Nares patent. No nasal discharge, no septal abnormalities noted. Tympanic membranes are normal and external auditory canals are clear. Oropharynx with no redness, swelling, or masses, exudates, or evidence of obstruction, uvula midline. Mucous membranes moist. Neck: Trachea midline, no thyromegaly or masses palpated, and no cervical lymphadenopathy. Supple, full range of motion without nuchal rigidity, or vertebral point tenderness. No Meningismus. Chest/axilla: Normal chest wall appearance and motion. Nontender with no deformity. No lesions are appreciated. Cardiovascular: Regular rate and rhythm with a normal S1 and S2. No gallops or rubs. Systolic murmur IV/ Normal PMI. No pulse deficits. Respiratory: Lungs have equal breath sounds bilaterally, clear to auscultation and percussion. No rales, rhonchi or wheezes noted. No increased work of breathing, no retractions or nasal flaring. Abdomen/GI: Soft, non-tender, with normal bowel sounds. No distension or tympany. No guarding or rebound. No evidence of tenderness throughout. Back: No spinal tenderness. No costovertebral tenderness. Full range of motion. 17:52 Musculoskeletal/extremity: arterial embolization 2 weeks ago to right leg, Debridment and great toe amputation last week. 3 days post amputation pt had left leg arterial embolization. 17:52 Skin: Appearance: normal except for affected area, distal foot with erythema proximally with necrosis to distal dorsal foot, 2nd toe. Gas gangrene to 2nd metatarsal and soft tissue of distal foot/toes per CT. 17:52 Neuro: Mentation: responsive to voice confused. Vital Signs: 15:31 BP 98 / 52; Pulse 75; Resp 16 S; Temp 99.6(O); Pulse Ox 99% on R/A; aa5 17:56 Pulse 80; Resp 17; Temp 98.6(O); Pulse Ox 100% on R/A; mh5 18:56 BP 108 / 53; Pulse 71; Resp 14; Pulse Ox 97% on R/A; zb 20:30 BP 105 / 53; Pulse 68; Resp 15; Pulse Ox 97% on R/A; zb 20:48 BP 105 / 53; Pulse 67; Resp 14; Pulse Ox 95% on R/A; zb 21:38 Weight 60.78 kg; Height 5 ft. 3 in. (160.02 cm); zb 21:45 BP 100 / 49; Pulse 95; Resp 16; Pulse Ox 95% on R/A; zb 22:45 BP 113 / 58; Pulse 65; Resp 14; Pulse Ox 96% on R/A; zb 21:38 Body Mass Index 23.74 (60.78 kg, 160.02 cm) zb MDM: 17:04 Patient medically screened. snw 17:33 Data reviewed: vital signs, nurses notes. Data interpreted: Pulse oximetry: on room air snw is 99 %. Interpretation: normal. Physician consultation: Tristan Nunes MD was called at 17:33, was contacted at 17:34, regarding patient's condition, would like consultation with Podiatrisis. 19:22 Physician consultation: Deshawn Kumar MD was called at 19:22, was contacted at 19:22, snw regarding admission, to the telemetry unit. 08/15 17:23 Order name: Basic Metabolic Panel snw 08/15 17:23 Order name: Blood Culture Adult (2) snw 08/15 17:23 Order name: CBC with Diff snw 08/15 17:23 Order name: CPK snw 08/15 17:23 Order name: Lactate; Complete Time: 18:34 snw 08/15 17:23 Order name: LFT's snw 08/15 17:23 Order name: Procalcitonin snw 08/15 17:23 Order name: Protime (+inr) snw 08/15 17:23 Order name: Ptt, Activated snw 08/15 19:00 Order name: Urine Dipstick--Ancillary (enter results); Complete Time: 19:16 em1 08/15 20:12 Order name: CBC with Automated Diff EDMS 08/15 20:12 Order name: CBC with Automated Diff EDMS 08/15 20:12 Order name: Comprehensive Metabolic Panel EDMS 08/15 20:12 Order name: Comprehensive Metabolic Panel EDMS 08/15 15:47 Order name: CT Head Brain wo Cont; Complete Time: 17:03 aa5 08/15 16:33 Order name: Stone Protocol; Complete Time: 17:03 EDMS 08/15 16:33 Order name: Foot Right Wo Con; Complete Time: 17:09 EDMS 08/15 20:12 Order name: CONS Pharmacy Consult EDMS 08/15 20:12 Order name: CONS Physician Consult EDMS 08/15 20:12 Order name: Renal EDMS 08/15 20:17 Order name: CONS Physician Consult EDMS 08/15 20:18 Order name: Lower Extremity Artery Uni Ltd EDMS 08/15 20:19 Order name: CONS Pharmacy Consult EDMS 08/15 20:19 Order name: Vancomycin Level Trough EDMS 08/15 21:23 Order name: SARS-COV-2 RT PCR EDMS 08/15 21:23 Order name: Glucose, Ancillary Testing EDMS 08/15 22:27 Order name: Manual Differential EDMS 08/15 17:23 Order name: Accucheck; Complete Time: 18:15 snw 08/15 17:23 Order name: Cardiac monitoring; Complete Time: 18:15 snw 08/15 17:23 Order name: EKG - Nurse/Tech; Complete Time: 18:15 snw 08/15 17:23 Order name: IV Saline Lock - Large Bore; Complete Time: 19:25 snw 08/15 17:23 Order name: Labs collected and sent; Complete Time: 18:15 snw 08/15 17:23 Order name: O2 Per Protocol; Complete Time: 18:15 snw 08/15 17:23 Order name: O2 Sat Monitoring; Complete Time: 18:15 snw 08/15 17:23 Order name: Urine Dipstick-Ancillary (obtain specimen); Complete Time: 18:58 snw EC:00 Rhythm is regular. QRS Castaner is Normal. NM interval is normal. QRS interval is normal. snw QT interval is normal. No Q waves. T waves are Normal. No ST changes noted. Clinical impression: Normal ECG. Administered Medications: 19:24 Drug: Zosyn 3.375 grams Route: IVPB; Infused Over: 60 mins; Site: right forearm; zb 20:28 Follow up: Response: No adverse reaction; IV Status: Completed infusion; IV Intake: zb 100ml 20:27 Drug: vancoMYCIN 1 grams Route: IVPB; Infused Over: 2 hrs; Site: right forearm; zb 20:47 Drug: Dulcolax Suppository 10 mg Route: NM; zb 21:00 Follow up: Response: No adverse reaction zb Disposition: 08/16 07:26 Co-signature as Attending Physician, Griffin Cook MD I agree with the assessment and kdr plan of care. Disposition: 08/15/20 19:23 Hospitalization ordered by Deshawn Kumar for Inpatient Admission. Preliminary diagnosis is Gas gangrene. - Bed requested for Telemetry/MedSurg (Inpatient). - Status is Inpatient Admission. sg - Condition is Stable. - Problem is an acute exacerbation. - Symptoms have worsened. Signatures: Dispatcher [employer] EDMS Rayo Noriega, RN RN sg Griffin Cook MD MD kdr Sherice Caraballo, RESIDENTIAL GLAZIER-C RESIDENTIAL GLAZIER-Csnw Rupali Ferraro RN RN aa5 Edelmira Chang RN RN tl1 Esther Quevedo RN RN zb Corrections: (The following items were deleted from the chart) 08/15 22:04 19:23 Hospitalization Ordered by Deshawn Kumar MD for Inpatient Admission. Preliminary tl1 diagnosis is Gas gangrene. Bed requested for Telemetry/MedSurg (Inpatient). Status is Inpatient Admission. Condition is Stable. Problem is an acute exacerbation. Symptoms have worsened. snw 23:26 22:04 08/15/2020 19:23 Hospitalization Ordered by Deshawn Kumar MD for Inpatient sg Admission. Preliminary diagnosis is Gas gangrene. Bed requested for Telemetry/MedSurg (Inpatient). Status is Inpatient Admission. Condition is Stable. Problem is an acute exacerbation. Symptoms have worsened. tl1
--- NOTE | 2020-08-15 19:23 | P.HP ---
Certification for Inpatient Patient admitted to: Inpatient With expected LOS: >2 Midnights Practitioner: I am a practitioner with admitting privileges, knowledge of patient current condition, hospital course, and medical plan of care. Services: Services provided to patient in accordance with Admission requirements found in Title 42 Section 412.3 of the Code of Federal Regulations Patient History Date of Service: 08/15/20 Reason for admission: Foot pain History of Present Illness: 44 yo female with past medical history of diabetes, hypertension, hyperlipidemia, end-stage renal disease on dialysis, history of CVA, blindness, neuropathy, peripheral arterial disease who had a recent revascularization done on both lower extremity in [facility] and had a big toe amputation done recently. Patient is a poor historian hence most of the history is obtained from the chart review and also talking to the family member who is at the bedside. Patient has had two foot procedures the last one being 08/01/[address] Nunes. Post procedure her foot was dusky after the procedure on 08/01/20 with worsening gangrene since, patient was getting antibiotics while at dialysis and also with home health for wound care. As the home health nurse noted worsening of the colon on the right lower extremity and foot and was sent over to the ER. patient denies any fever or chills. no chest pain or shortness of breath Patient was assessed in the ER and was admitted for further management of possible osteomyelitis of right foot As per the daughter patient is more confused than baseline . Allergies No Known Allergies Allergy (Verified 07/27/20 12:45) Home medications list reviewed: Yes Home Medications: Aspirin 81 mg PO DAILY 12/23/19 Gabapentin 100 mg PO M,W,F 12/23/19 Sertraline [Zoloft*] 100 mg PO DAILY 12/23/19 Clopidogrel Bisulfate [Plavix*] 75 mg PO DAILY #30 tablet 12/26/19 Folic Acid 1 mg PO DAILY #30 tablet 12/26/19 Atorvastatin Calcium [Lipitor] 20 mg PO BEDTIME 02/09/20 Calcium Carbonate [Tums Regular*] 2 tab PO TIDWM 06/26/20 Furosemide [Lasix*] 40 mg PO BID 06/26/20 Hydroxyzine HCl [Atarax] 10 mg PO TID PRN 06/26/20 Insulin Glargine,Hum.rec.anlog [Toujeo Max Solostar] 20 unit SQ BEDTIME 06/26/20 Insulin Lispro [Humalog] 25 unit SQ TID 06/26/20 Sevelamer Carbonate [Renvela*] 800 mg PO TIDWM 06/26/20 Tramadol HCl [Ultram] 50 mg PO DAILY PRN 06/26/20 Zinc Oxide/Menthol/Calamine [Lantiseptic Multi-Purpose Oint] 113 gm TP DAILY PRN 06/26/20 Calcitrol [Rocaltrol*] 0.25 mcg PO Q48H #30 cap 08/03/20 levoFLOXacin [Levaquin] 500 mg PO AFTER EACH DIALYSIS #15 tab 08/03/20 - Past Medical/Surgical History Diabetic: Yes Past Medical History: Reviewed- Non-Contributory -: ESRD -: HPN -: Thyroid cancer -: Neuropathy -: Blind both eyes -: DM -: Neuropathy -: GERD -: ESRD -: hyperlipidemia -: CVA x3 Past Surgical History: Reviewed- Non-Contributory -: Cholecystectomy -: Thyroidectomy -: Multiple eye surgeries -: -: HD graph left arm -: right great toe amputation Psychosocial/ Personal History: The patient is . She has 1 child. She is disabled. - Family History Father -: Heart disease, Hypertension, Other (see notes) Notes: thyroid problems Mother -: Diabetes, Kidney disease - Social History Smoking Status: Former smoker Alcohol use: No CD- Drugs: No Caffeine use: No Review of Systems 10-point ROS is otherwise unremarkable Physical Examination - Vital Signs Temperature: 98.8 F Blood Pressure: 142/88 Pulse: 86 Respirations: 18 - Physical Exam General: Alert, In no apparent distress, Mild distress HEENT: Atraumatic, Normocephalic Neck: Supple Respiratory: Clear to auscultation bilaterally, Normal air movement Cardiovascular: Regular rate/rhythm, Normal S1 S2, Edema Capillary refill: <2 Seconds Gastrointestinal: Soft and benign, W/out hepatosplenomegaly Musculoskeletal: No clubbing, No swelling, Erythema, Tenderness, Warmth Integumentary: Tenderness/swelling, Erythema, Warmth, Cyanosis, Other (Right Foot Wound is gangrenous and necrotic ) Neurological: Other (Alert , Confused ) Lymphatics: Other (No generalised lymphadenopathy ) Assessment and Plan - Problems (Diagnosis) (1) Cellulitis of foot Current Visit: Yes Status: Acute (2) Type 2 diabetes mellitus with diabetic peripheral angiopathy with gangrene Current Visit: Yes Status: Chronic (3) DELMA (acute kidney injury) Onset Date: 08/24/18 Current Visit: No Status: Chronic (4) Altered mental status Current Visit: No Status: Acute Qualifiers: Altered mental status type: unspecified Qualified Code(s): R41.82 - Altered mental status, unspecified (5) Blind in both eyes Current Visit: No Status: Chronic (6) Diabetic foot ulcer Current Visit: No Status: Acute Qualifiers: Laterality: right (7) Diabetic neuropathy Current Visit: No Status: Chronic (8) Diabetic retinopathy Current Visit: No Status: Chronic (9) Dyslipidemia Onset Date: 09/02/17 Current Visit: No Status: Chronic (10) ESRD (end stage renal disease) Current Visit: No Status: Chronic (11) End-stage renal disease on hemodialysis Current Visit: No Status: Chronic (12) History of CVA (cerebrovascular accident) Current Visit: No Status: Chronic (13) Leukocytosis Current Visit: No Status: Acute (14) Osteomyelitis of toe of right foot Current Visit: No Status: Acute (15) Hyperlipidemia Onset Date: 03/03/17 Current Visit: No Status: Chronic Qualifiers: (16) Hypertension Onset Date: 03/03/17 Current Visit: No Status: Chronic Qualifiers: - Plan Osteomyelitis of right foot Cellulitis /gangrene of right foot Diabetes mellitus Hypertension Hyperlipidemia End-stage renal disease on dialysis Leukocytosis Neuropathy Blindness Elevated procalcitonin Hyperkalemia Constipation Diabetic neuropathy and retinopathy Acute encephalopathy possibly metabolic Peripheral arterial disease status post revascularization Plan Monitor under telemetry Start on aggressive antibiotic therapy Nephrology consulted ER already consulted Dr. Nunes was therefore due to procedure the for Recommended consulting podiatry Podiatric consultation done CT of the head is negative for any acute changes CT abdomen suggestive of constipation CT of the foot suggestive of cellulitis/ Continue home medications and titrate as needed Will hold Plavix for now as patient may need BKA amputation Insulin sliding scale Antihyperlipidemic measures Monitor renal parameters Will give Kayexalate and lactulose GI/DVT prophylaxis Discharge Plan: LTAC Plan to discharge in: Greater than 2 days - Advance Directives Does patient have a Living Will: No Does patient have a Durable POA for Healthcare: No Time Spent Managing Pts Care (In Minutes): 43
--- NOTE | 2020-08-15 19:23 | ER ---
Nurse's Notes [facility] Name: Archana Woo Age: 44 yrs Sex: Female : 1975 Arrival Date: 08/15/2020 Time: 15:13 Bed 27 Private MD: Diagnosis: Gas gangrene Presentation: 08/15 15:30 Chief complaint: Pt's daughter states "she had surgery to clean out her wound to her aa5 right foot about a week ago by Dr. Nunes but the [facility] home health nurse said it's getting worse despite the IV antibiotics". Pt's daughter reports last BM was 5 days ago but has not eaten much, also reports confusion since yesterday. Pt is currently A\\T\\O x person in triage. 15:30 Coronavirus screen: Client denies travel out of the [place] in the last 14 days. At this aa5 time, the client does not indicate any symptoms associated with coronavirus-19. Ebola Screen: Patient negative for fever greater than or equal to 101.5 degrees Fahrenheit, and additional compatible Ebola Virus Disease symptoms. Initial Sepsis Screen: Does the patient meet any 2 criteria? No. Patient's initial sepsis screen is negative. Does the patient have a suspected source of infection? Yes:. Risk Assessment: Do you want to hurt yourself or someone else? Patient reports no desire to harm self or others. Onset of symptoms was July 2020. 15:30 Acuity: TARUN 2 aa5 15:30 Method Of Arrival: Wheelchair aa5 Historical: - Allergies: 15:38 No Known Allergies; aa5 - PMHx: 15:37 BLIND; CVA; Depression; Diabetes - NIDDM; GERD; Hyperlipidemia; Hypertension; left arm aa5 paralysis; neuropathy; THYROID CANCER; TIA; Dialysis MWF; - PSHx: 15:39 Left dialysis fistula; aa5 - Immunization history:: Adult Immunizations unknown. - Social history:: Smoking status: Reported history of juuling and/or vaping. Screenin:00 Abuse screen: Denies threats or abuse. Denies injuries from another. Nutritional zb screening: No deficits noted. Tuberculosis screening: No symptoms or risk factors identified. Fall Risk No fall in past 12 months (0 pts). No secondary diagnosis (0 pts). IV access (20 points). Ambulatory Aid- Crutches/Cane/Walker (15 pts). Gait- Impaired (20 pts.). Mental Status- Overestimates/Forgets Limitations (15 pts.). Total Lr Fall Scale indicates High Risk Score (45 or more points). Fall prevention measures have been instituted. Side Rails Up X 2 Placed Close to Nursing Station Frequent Obs/Assessments Occuring Family Present and informed to notify staff if the need to leave the bedside As available patient and family educated on Fall Prevention Program and Strategies. Assessment: 16:00 General: Appears in no apparent distress. uncomfortable, Behavior is inappropriate for zb age. Pain: Complains of pain in RLE and RUE. Neuro: Level of Consciousness is awake, obeys commands, confused. Cardiovascular: Heart tones muffled Murmur present Capillary refill < 3 seconds in bilateral fingers Patient's skin is warm and dry. Pulses are absent in right posterior tibial artery, right dorsalis pedis artery, left posterior tibial artery and left dorsalis pedis artery. Respiratory: Airway is patent Respiratory effort is even, unlabored, Respiratory pattern is regular, symmetrical. GI: Abdomen is round distended, Parent/caregiver reports the patient having constipation. : No signs and/or symptoms were reported regarding the genitourinary system. EENT: Parent/caregiver reports the patient having caregiver states that patient is blind . Derm: Skin is dry, Skin is black, red, located on Right foot, eschar present. odor present Wound noted right foot. Musculoskeletal: Amputation of right 1st and 2nd toe . 17:00 Reassessment: Patient appears in no apparent distress at this time. Patient and/or zb family updated on plan of care and expected duration. Pain level reassessed. pt appears more alert at this time. aox2. she still has periods of confusion. family at bedside. 18:00 Reassessment: Patient appears in no apparent distress at this time. Patient and/or zb family updated on plan of care and expected duration. Pain level reassessed. discussed POC w/ patient and family. 19:00 Reassessment: Patient appears in no apparent distress at this time. Patient and/or zb family updated on plan of care and expected duration. Pain level reassessed. pt aox2. still slightly disoriented. educated family on plan of care. 20:05 Reassessment: hosptialist at bedside discussing POC. zb 20:48 Reassessment: Patient appears in no apparent distress at this time. Patient and/or zb family updated on plan of care and expected duration. Pain level reassessed. pt placed on bedpan. 21:10 Reassessment: at bedside. zb 23:12 Reassessment: Patient appears in no apparent distress at this time. pt updated that her sg sister had called, requesting information about lab results, updated that no information can be given at this time, to please speak with pt. pt sister had stated understanding, pt to be transported to second floor. 23:13 Reassessment: Patient appears in no apparent distress at this time. Patient and/or zb family updated on plan of care and expected duration. Pain level reassessed. called daughter notified that mother was going to room 214. Vital Signs: 15:31 BP 98 / 52; Pulse 75; Resp 16 S; Temp 99.6(O); Pulse Ox 99% on R/A; aa5 17:56 Pulse 80; Resp 17; Temp 98.6(O); Pulse Ox 100% on R/A; mh5 18:56 BP 108 / 53; Pulse 71; Resp 14; Pulse Ox 97% on R/A; zb 20:30 BP 105 / 53; Pulse 68; Resp 15; Pulse Ox 97% on R/A; zb 20:48 BP 105 / 53; Pulse 67; Resp 14; Pulse Ox 95% on R/A; zb 21:38 Weight 60.78 kg; Height 5 ft. 3 in. (160.02 cm); zb 21:45 BP 100 / 49; Pulse 95; Resp 16; Pulse Ox 95% on R/A; zb 22:45 BP 113 / 58; Pulse 65; Resp 14; Pulse Ox 96% on R/A; zb 21:38 Body Mass Index 23.74 (60.78 kg, 160.02 cm) zb ED Course: 15:13 Patient arrived in ED. ag5 15:30 Arm band placed on. aa5 15:37 Triage completed. aa5 16:00 Patient has correct armband on for positive identification. Bed in low position. Call zb light in reach. Side rails up X 1. Adult w/ patient. warrant server on. Pulse ox on. NIBP on. Door closed. Noise minimized. Warm blanket given. 16:29 CT Head Brain wo Cont In Process Unspecified. EDMS 16:30 Sherice Caraballo FNP-C is [facility]. snw 16:30 Griffin Cook MD is Attending Physician. snw 16:30 EKG done, by ED staff, reviewed by Sherice FELIZ. zb 16:37 Stone Protocol In Process Unspecified. EDMS 16:39 Esther Quevedo RN is Primary Nurse. zb 16:49 Foot Right Wo Con In Process Unspecified. EDMS 18:30 Lou cath inserted, using sterile technique, 16 Fr., by ED staff, balloon inflated, to zb gravity drainage, urine specimen collected. 19:22 Deshawn Kumar MD is Hospitalizing Provider. snw 19:25 Inserted saline lock: 22 gauge in right forearm, using aseptic technique. Missed zb attempt(s): 20 gauge in right antecubital area. Inserted saline lock: 22 gauge in right forearm, using aseptic technique. Missed attempt(s): 22 gauge in right forearm. 19:55 Notified ED physician of a critical lab result(s). creatinine 6.46 and WBC 25.2 ( zb notified MD bailey). 23:14 No provider procedures requiring assistance completed. Patient admitted, IV remains in zb place. Administered Medications: 19:24 Drug: Zosyn 3.375 grams Route: IVPB; Infused Over: 60 mins; Site: right forearm; zb 20:28 Follow up: Response: No adverse reaction; IV Status: Completed infusion; IV Intake: zb 100ml 20:27 Drug: vancoMYCIN 1 grams Route: IVPB; Infused Over: 2 hrs; Site: right forearm; zb 20:47 Drug: Dulcolax Suppository 10 mg Route: ME; zb 21:00 Follow up: Response: No adverse reaction zb Intake: 20:28 IV: 100ml; Total: 100ml. zb Outcome: 19:23 Decision to Hospitalize by Provider. snw 23:15 Admitted to Med/surg accompanied by tech, via wheelchair, room 214, with chart, Report zb called to ARMOND Gunn 23:15 Condition: stable 23:15 Discharge instructions given to patient, family, Instructed on the need for admit, Demonstrated understanding of instructions. 23:26 Patient left the ED. sg Signatures: Dispatcher [employer] EDRayo Ambriz RN RN Sherice Moon, [employer]ER-C [employer]-Csnw Rupali Ferraro RN RN Ann Chadwick Yash Marcano [facility] Esther Quevedo RN RN zb Corrections: (The following items were deleted from the chart) 15:39 15:34 Arm band placed on aa5 aa5
[2020-08-15 19:33] LABS: Albumin 2.1 g/dL (3.4-5.0); Bilirubin Direct 0.3 mg/dL (0-0.2); Bilirubin Total 0.9 mg/dL (0.2-1.0); Protein, Total 9.7 g/dL (6.4-8.2)
[2020-08-15 19:42] LABS: Potassium 5.4 mmol/L (3.5-5.1)
[2020-08-15 19:48] LABS: Absolute Lymphocytes (CBC) 0.3 K/uL (0.7-4.9); Basophils % 0.6 % (0-1.3); Hematocrit 30.3 % (36.0-45.0); Lymphocytes % 1.2 % (15.3-44.8); MPV 8.5 fL (7.6-11.3); RBC Red Blood Cell Count 3.25 M/uL (3.86-4.86)
[2020-08-15] MEDS ORDERED: MORPHINE 2 MG/ML SYR IV PRN (20:09)
[2020-08-15] MEDS ORDERED: ONDANSETRON 4 MG/2 ML VIAL IV PRN (20:09)
[2020-08-15] MEDS ORDERED: NA CHLORIDE 0.9% 250 ML ONE (20:31)
[2020-08-15] MEDS ORDERED: VANCOMYCIN 1 GM/VIAL ONE (20:31)
--- NOTE | 2020-08-15 21:26 | P.CNS ---
Date of Consult: 08/15/20 Reason for Consult: gas gangrene right foot Chief Complaint: Foot pain History of Present Illness: Patient had revascularization performed right lower extremity in early July. Patient has had two foot procedures the last one being 08/01/[address] Nunes. The patient's daughter provided the history and states that her foot was dusky after the procedure on 08/01/20 with worsening gangrene since. Allergies No Known Allergies Allergy (Verified 07/27/20 12:45) Home Medications: Aspirin 81 mg PO DAILY 12/23/19 Gabapentin 100 mg PO M,W,F 12/23/19 Sertraline [Zoloft*] 100 mg PO DAILY 12/23/19 Clopidogrel Bisulfate [Plavix*] 75 mg PO DAILY #30 tablet 12/26/19 Folic Acid 1 mg PO DAILY #30 tablet 12/26/19 Atorvastatin Calcium [Lipitor] 20 mg PO BEDTIME 02/09/20 Calcium Carbonate [Tums Regular*] 2 tab PO TIDWM 06/26/20 Furosemide [Lasix*] 40 mg PO BID 06/26/20 Hydroxyzine HCl [Atarax] 10 mg PO TID PRN 06/26/20 Insulin Glargine,Hum.rec.anlog [Toujeo Max Solostar] 20 unit SQ BEDTIME 06/26/20 Insulin Lispro [Humalog] 25 unit SQ TID 06/26/20 Sevelamer Carbonate [Renvela*] 800 mg PO TIDWM 06/26/20 Tramadol HCl [Ultram] 50 mg PO DAILY PRN 06/26/20 Zinc Oxide/Menthol/Calamine [Lantiseptic Multi-Purpose Oint] 113 gm TP DAILY PRN 06/26/20 Calcitrol [Rocaltrol*] 0.25 mcg PO Q48H #30 cap 08/03/20 levoFLOXacin [Levaquin] 500 mg PO AFTER EACH DIALYSIS #15 tab 08/03/20 - Past Medical/Surgical History Diabetic: Yes -: ESRD -: HPN -: Thyroid cancer -: Neuropathy -: Blind both eyes -: DM -: Neuropathy -: GERD -: ESRD -: hyperlipidemia -: CVA x3 -: Cholecystectomy -: Thyroidectomy -: Multiple eye surgeries -: -: HD graph left arm -: right great toe amputation Psychosocial/ Personal History: The patient is . She has 1 child. She is disabled. - Family History Father Medical History: Heart disease, Hypertension, Other (see notes) Notes: thyroid problems Mother Medical History: Diabetes, Kidney disease - Social History Smoking Status: Current some day smoker Alcohol use: No CD- Drugs: No Caffeine use: No Review of Systems 10-point ROS is otherwise unremarkable Physical Examination General: Unresponsive Cardiovascular: No edema, Abnormal pulses (nonpalpable pulses right lower extremity) Capillary refill: >2 Seconds Musculoskeletal: Other (previous amputation right hallux and first metatarsal.) Integumentary: Other (grangrene of the right second and third digits with dusky appearance of the fourth and fifth digit. Gangrene extends to proximal midfoot dorsally with dusky appearan plantarly and the foot is cool to the touch. Cellulitis streaking extends to the medial ankle) Neurological: Other (deferred) Laboratory Data (last 24 hrs) 08/15/20 19:10: WBC 25.2 H* D, Hgb 9.5 L, Hct 30.3 L, Plt Count 534 H D 08/15/20 19:10: Sodium 129 L, Potassium 5.4 H, BUN 47 H, Creatinine 6.46 H* D, Glucose 273 H, Total Bilirubin 0.9, AST 37, ALT 17, Alkaline Phosphatase 618 H - Problems (1) Type 2 diabetes mellitus with diabetic peripheral angiopathy with gangrene Current Visit: Yes Status: Acute (2) Cellulitis of foot Current Visit: Yes Status: Acute Conclusions/Impression: Due to the extent of nonviable and potientially nonviable tissue as well as elevated WBC I feel the patient would be best treated with a below knee amputation right lower extremity. This was discussed with the daughter. General surgery or Orthopedics to be consulted for possible BKA
[2020-08-15 22:14] LABS: Protime INR 1.07
[2020-08-15 22:27] LABS: Blood Morphology Comment NOT SEEN (NOT SEEN); Platelet Estimate INCR
[2020-08-16] MEDS: INSULIN -REGULAR HUMAN 50 UNIT/0.5 ML ML SQ SCH ×5 (00:09→20:40)
[2020-08-16] MEDS: ATORVASTATIN 20 MG TAB PO SCH ×2 (00:10→20:40)
[2020-08-16] MEDS ORDERED: SOD POLYSTYREN SUL 15 GM/60 ML UCUP PO ONE (00:29)
[2020-08-16] MEDS ORDERED: LACTULOSE 20 GM/30 ML UCUP PO PRN (00:29)
[2020-08-16] MEDS: PIPER/TAZO/NS 2.25gm 2.25 GM/50 ML BAG IVPB SCH ×3 (01:00→17:26)
[2020-08-16] MEDS: ACETAMINOPHEN 500 MG TAB PO PRN ×2 (01:03→06:40)
[2020-08-16 01:25] VITALS: BMI 23.6
[2020-08-16] MEDS ORDERED: PIPERACIL/TAZO 4.5 GM VIAL IV ONE (01:45)
[2020-08-16] MEDS ORDERED: NA CHLORIDE 0.9% 50 ML ONE (02:14)
[2020-08-16 07:02] LABS: Albumin 1.9 g/dL (3.4-5.0); Bilirubin Total 0.5 mg/dL (0.2-1.0); Potassium 4.6 mmol/L (3.5-5.1); Protein, Total 8.3 g/dL (6.4-8.2)
[2020-08-16 07:03] LABS: Absolute Lymphocytes (CBC) 0.6 K/uL (0.7-4.9); Basophils % 1.1 % (0-1.3); Hematocrit 27.8 % (36.0-45.0); Lymphocytes % 2.5 % (15.3-44.8); MPV 7.7 fL (7.6-11.3); RBC Red Blood Cell Count 3.04 M/uL (3.86-4.86)
[2020-08-16] MEDS: CALCIUM CARBONATE CHEW 500MG TAB PO SCH ×3 (08:00→17:00)
[2020-08-16] MEDS: FOLIC ACID 1 MG TABLET PO SCH (09:00)
[2020-08-16] MEDS: ASPIRIN 81 MG CHEWABLE TABLET PO SCH (09:00)
[2020-08-16] MEDS: CALCITROL 0.25 MCG CAP PO SCH (09:00)
[2020-08-16] MEDS ORDERED: propofoL 200 MG/20 ML VIAL IV ONE (11:43)
[2020-08-16] MEDS ORDERED: NA CHLORIDE 0.9% 1,000 ML ONE (11:43)
[2020-08-16] MEDS ORDERED: LIDOCAINE 2% MPF 5 ML VIAL ONE (11:43)
[2020-08-16] MEDS ORDERED: Phenylephrine HCl 10 MG/ML 1 ML VIAL ONE (11:44)
[2020-08-16] MEDS ORDERED: FENTANYL CITR 100 MCG/2 ML ONE (12:01)
[2020-08-16] MEDS ORDERED: GLYCOPYRROLATE 0.2 MG/ML SYR ONE (12:07)
--- NOTE | 2020-08-16 12:12 | PREOPCON ---
Date of Consultation: 08/16/2020 Reason For Consult: Gas gangrene in the right foot. History Of Present Illness: Patient is a 44-year-old female, who was admitted with gangrenous right foot and worsening redness and swelling. Through the emergency room, patient has undergone a vascula r procedure a couple of weeks ago, and a surgical procedure by Dr. Blum approximately 2 weeks ago. Her foot was dusky, worsening gangrene over the last couple of weeks. She is on antibiotics and di alysis and home health noted that the color of the foot was very bad and was sent over to the emergen cy room. She was admitted with, sepsis workup was begun and she had a CAT scan done, which shows gas gangrene and Dr. Costello was initially consulted and he stated that patient would benefit from a BKA a s the wound itself was not salvageable and would not heal upon debridement. Therefore, General Surge ry was consulted. I was asked to evaluate the patient. Patient is unable to provide a good review o f systems because of her mental status. She is confused and lethargic at this time. The history is obtained from the chart and nursing staff. There has been no fever or chills and no purulent dischar ge. Review of Systems: Otherwise unremarkable. Medical History: Significant for end-stage renal disease, hypertension, thyroid cancer, blindness in both eyes, diabetes, neuropathy, GERD, hyperlipidemia, strokes x3. Past Surgical History: Significant for cholecystectomy, thyroidectomy, multiple eye surgeries, C-sec tion and hemodialysis graft on the left arm and right great toe amputation recently. Allergies: NONE. Social History: Patient used to smoke in the past, does not anymore. Does not drink alcohol. Family History: Significant for thyroid issues, hypertension, heart disease, kidney disease, diabete s. Physical Examination: Vital Signs: Her vitals currently are systolic of 92-103. She is afebrile. She is awake but confus ed. Head and Neck: No masses. Chest: Clear. Heart: S1, S2. Abdomen: Soft. Extremities: Diminished dorsalis pedis and posterior tibial pulses. The right medial forefoot is al l black. There was suture in place. There is edema, erythema, tenderness, obvious gangrene present. There is duskiness in the fourth and fifth digit and the foot is cool to the touch and streaking al brissa the redness is on the medial ankle. Laboratory Data: White count was 25.2 on admission yesterday and today is 23.2. There is a left genevieve ft. Platelets are elevated at 451. INR is 1.07. Chemistry reviewed. Procalcitonin is 4.65, initia l lactic acid was 1.9. The patient had a CT of the head, which was negative. Abdominal CT, which sh owed constipation and possible proctitis, foot CT was done as well, which shows large amount of soft tissue gas present in the foot as detail with interosseous gas also noted. The degree of gas formati on is greater than typically seen from postoperative status and is very suspicious for infection with a gas-forming organism. Assessment: Gas gangrene, right foot, in the patient with peripheral vascular disease. Recommendation: I agree with Dr. Costello that the best option for this patient is a below-knee amputat ion. Risks, benefits, alternatives were discussed with the sister who is the power of corporate associate attorney in [facility] and she understood the risks and the benefits, and agreed for the procedure. We will proceed with right below-knee amputation. Plan of care was discussed with Dr. Caleb servin as well. /MODL Voice ID: [id number] Report ID: [id number]
[2020-08-16] MEDS ORDERED: dexAMETHasone 10 MG/ML VIAL ONE (12:15)
[2020-08-16] MEDS ORDERED: ONDANSETRON 4 MG/2 ML VIAL ONE (12:22)
--- NOTE | 2020-08-16 12:40 | P.OP ---
Venue Coordinator: Zhao ARAUZ Preoperative diagnosis: Gas Gangrene Right Foot Postoperative diagnosis: same Primary procedure: Right BKA Anesthesia: General Estimated blood loss: min Specimen: Right Leg Findings: as above Complications: None Transferred to: Recovery Room Condition: Good
--- NOTE | 2020-08-16 13:34 | OP ---
Date of Procedure: 08/16/2020 Surgeon: Cesario Ch MD Fixed Wing Pilot: DAVONTE Reagan. Preoperative Diagnosis: Gas gangrene, right foot. Postoperative Diagnosis: Gas gangrene, right foot. Procedure: Right below-knee amputation. Estimated Blood Loss: Minimal. Specimen: Right leg. Findings: As above. Anesthesia: General. Complications: None. Disposition: The patient tolerated the procedure in stable condition, taken to Recovery in good gene ral condition. Operative Note: The patient was brought to the OR and placed in supine position. General anesthesia was begun. The patient was prepped and draped in usual sterile fashion. Then, 4 fingerbreadths bel ow the tibial tuberosity, a transverse incision was made. Posterior flaps were created. Tibia and f ibula isolated. Neurovascular bundle was divided between clamps, tied with 0 silk and 2-0 silk as ne eded and bone divided with Gigli saw on the tibia side and bone cutter on the fibula, then rongeur us ed to smoothen out rough edges, and rasp used to smoothen out rough edges further. Then, entire leg was removed, sent to Pathology. Then, the flap was created to appropriate size. A 2-0 chromic and 3 -0 chromic used to approximate the fascia and subcutaneous tissue. Rudy were used to close the sk in. This was after the wound was irrigated thoroughly irrigated and bleeding was controlled with cau blaise. All counts were correct and then rudy were used to close skin. Sterile dressing was applie d. The patient was awakened and taken to Recovery in good general condition. /MODL Voice ID: [id number] Report ID: [id number]
--- NOTE | 2020-08-16 14:38 | P.PN ---
Subjective Date of Service: 08/16/20 Chief Complaint: Foot pain Patient was mute this morning and would not respond to my questions. She has afebrile. Physical Examination - Vital Signs Temperature: 97.4 F Blood Pressure: 94/48 Pulse: 62 Respirations: 12 Pulse Ox (%): 94 - Physical Exam General: In no apparent distress Neck: JVD not distended Respiratory: Clear to auscultation bilaterally, Normal air movement Cardiovascular: No edema, Regular rate/rhythm, Normal S1 S2 Gastrointestinal: Soft and benign, Non-distended Musculoskeletal: Other (Right foot with multiple gangrenous toes.) - Studies Laboratory Data (last 24 hrs) 08/15/20 19:10: WBC 25.2 H* D, Hgb 9.5 L, Hct 30.3 L, Plt Count 534 H D 08/15/20 19:10: Sodium 129 L, Potassium 5.4 H, BUN 47 H, Creatinine 6.46 H* D, Glucose 273 H, Total Bilirubin 0.9, AST 37, ALT 17, Alkaline Phosphatase 618 H Microbiology Data (last 24 hrs): 08/15/20 18:05 Blood - Blood Blood Culture Gram Stain - Final 08/15/20 18:05 Blood - Blood Gram Stain - Final Assessment And Plan - Current Problems (Diagnosis) (1) Gangrene of right foot Current Visit: Yes Status: Acute (2) History of CVA (cerebrovascular accident) Current Visit: Yes Status: Acute (3) Peripheral vascular disease Current Visit: Yes Status: Acute (4) Diabetes mellitus type II, uncontrolled Onset Date: 10/08/15 Current Visit: No Status: Chronic Qualifiers: Glycemic state: with hyperglycemia Qualified Code(s): E11.65 - Type 2 diabetes mellitus with hyperglycemia (5) ESRD (end stage renal disease) Current Visit: No Status: Chronic (6) History of CVA (cerebrovascular accident) Current Visit: No Status: Chronic (7) Sepsis Current Visit: No Status: Resolved - Plan Patient seen and evaluated by Dr. Ch. Planned for BKA. Continue current antibiotics. Follow cultures. Monitor CBC to follow leukocytosis. Cautious IV hydration given history of nephrotic syndrome. Nephrology consult for hemodialysis. Control blood sugar with insulin sliding scale and Lantus insulin.
[2020-08-16] MEDS ORDERED: ALBUMIN HUMAN 25% 100 ML IV ONE (16:00)
[2020-08-16] MEDS ORDERED: VANCOMYCIN/NS 1 gm 1 GM/250 ML BAG IVPB SCH (18:00)
--- NOTE | 2020-08-16 20:47 | CON ---
Date of Consultation: 08/16/2020 Chief Complaint: End-stage renal disease, on dialysis 3 times per week on Thursday, Thursday, and Thursday. History Of Present Illness: The patient is a 44-year-old woman with past medical history of diabetes, hypertension, hyperlipidemia, end-stage renal disease on dialysis, history of CVA, blindness, diabetic neuropathy, nephropathy, retinopathy, peripheral vascular disease. She underwent recently revascularization done on both lower extremities in [place], and had a big toe amputation done recently. The patient is a poor historian, cannot provide medical history. Patient has 2 procedures done, the last procedure was done on August 01, 2020. Postprocedure, the patient was treated with antibiotics and for end-stage renal disease, she has been dialyzed 3 times per week. She has not been compliant with 3 dialysis per week schedule. Patient was evaluated in the emergency room and was admitted for management of possible osteomyelitis of the right foot. The patient underwent BKA today. She was admitted for right foot gangrene, was evaluated by Dr. Ch, a generalized surgeon, and he recommended BKA. Patient is on antibiotics. White count is elevated. Patient has history of end-stage renal disease. Potassium level on arrival was slightly elevated. Subsequently, patient had lab work done this morning and potassium was 4.6, within normal limits, so there is no evidence of metabolic acidosis. Patient has persistent malnutrition due to chronic osteomyelitis. Today, she was seen by Dr. Ch and had right [id number] amputation for gangrene of right foot, diabetic foot infection. Review of Systems: Constitutional: The patient denies fever or chills. Eyes: Denies vision changes. Patient is legally blind. Ears, Nose, Mouth, and throat: Denies sore throat or earache. Respiratory: Denies PND, orthopnea. CARDIOVASCULAR: Denies chest pain or palpitation. GI: Denies nausea or vomiting. : Denies dysuria or hematuria. All other systems reviewed and all are negative. Past Medical History: End-stage renal disease, thyroid cancer, diabetic neuropathy. Patient has diabetic retinopathy, nephropathy, GERD, hyperlipidemia, peripheral vascular disease, cholecystectomy, thyroidectomy, multiple eye surgeries infection, right great toe amputation. Family History: Heart disease, hypertension, diabetes mellitus. Social History: Denies tobacco, alcohol, or illicit drugs. Physical Examination: General: Patient is awake, alert, follows commands. Eyes: The patient is blind. Ears, Nose, Mouth, and Throat: Oral mucosa moist. No pallor. Neck: Supple. No bruits. Lungs: Diminished breath sounds at bases. Heart: S1, S2. No pericardial friction rub. Extremities: Status post right BKA NEUROLOGIC: Moving extremities. Cranial nerves intact. Skin: warm and dry , no ozzing Laboratory Data: White count 25.2, hemoglobin 9.5, hematocrit 30.3, platelet count 534,00. Potassium on arrival to the hospital was 5.4, subsequently rechecked, potassium was within normal limits. BUN 47, creatinine 6.4. Impression And Plan: 1. End-stage renal disease. Patient had dialysis done today, although despite albumin, blood pressure systolic was in 90s and the patient was transferred back to the floor. Attending was notified about borderline hypotension. Patient might benefit from midodrine. She received IV albumin for blood pressure support. 2. Cellulitis of left foot, status post [id number] amputation. Continue antibiotics and follow up on cultures. 3. Anemia due to chronic kidney disease. Hemoglobin is 9.5. Continue [place] with dialysis. 4. Renal osteodystrophy. Continue renal diet and binder as tolerated. EB/MODL Voice ID: [id number] Report ID: [id number] MTDD
[2020-08-16] MEDS: TOUJEO MAX SQ SCH (21:00)
[2020-08-16] MEDS ORDERED: NA CHLORIDE 0.9% 250 ML ONE (22:03)
[2020-08-17] MEDS: PIPER/TAZO/NS 2.25gm 2.25 GM/50 ML BAG IVPB SCH ×3 (00:03→18:35)
[2020-08-17] MEDS: ACETAMINOPHEN 500 MG TAB PO PRN (01:51)
[2020-08-17] MEDS: HYDROCODONE/APAP 5/325 MG TAB PO PRN ×3 (06:00→20:38)
[2020-08-17] MEDS: CALCIUM CARBONATE CHEW 500MG TAB PO SCH ×3 (08:00→17:00)
[2020-08-17] MEDS: INSULIN -REGULAR HUMAN 50 UNIT/0.5 ML ML SQ SCH ×4 (08:42→20:38)
--- NOTE | 2020-08-17 08:48 | PN ---
Date of Progress Note: 08/17/2020 Subjective: Patient is awake and alert complaining of incisional pain. Objective: VITAL SIGNS: Stable. Afebrile. The dressing is clean, dry, and intact. Laboratory Data: Pending. Assessment: Status post right below-knee amputation for gas gangrene. Recommendations: Physical therapy rehab as ordered. Continue antibiotics. Patient is clinically st able. /MODL Voice ID: [id number] Report ID: [id number]
[2020-08-17] MEDS: ASPIRIN 81 MG CHEWABLE TABLET PO SCH (08:49)
[2020-08-17] MEDS: FOLIC ACID 1 MG TABLET PO SCH (08:49)
[2020-08-17] MEDS: ALBUMIN HUMAN 25% 100 ML IV ONE ×2 (09:14→10:13)
--- NOTE | 2020-08-17 10:17 | P.PN ---
Subjective Date of Service: 08/17/20 Chief Complaint: Foot pain Status post right BKA yesterday. Patient is tolerating feeding. Physical Examination - Vital Signs Temperature: 97.3 F Blood Pressure: 110/57 Pulse: 64 Respirations: 18 Pulse Ox (%): 99 - Physical Exam General: Alert, In no apparent distress, Other (Awake) Neck: JVD not distended Respiratory: Clear to auscultation bilaterally, Normal air movement Cardiovascular: No edema, Regular rate/rhythm, Normal S1 S2 Gastrointestinal: Soft and benign, Non-distended, No tenderness Musculoskeletal: Other (Right BKA, BKA stump dressed.) Neurological: Other (Nonfocal.) - Studies Microbiology Data (last 24 hrs): 08/15/20 18:05 Blood - Blood Blood Culture Gram Stain - Final 08/15/20 18:05 Blood - Blood Gram Stain - Final Assessment And Plan - Current Problems (Diagnosis) (1) Gangrene of right foot Current Visit: Yes Status: Acute (2) History of CVA (cerebrovascular accident) Current Visit: Yes Status: Acute (3) Peripheral vascular disease Current Visit: Yes Status: Acute (4) Diabetes mellitus type II, uncontrolled Onset Date: 10/08/15 Current Visit: No Status: Chronic Qualifiers: Glycemic state: with hyperglycemia Qualified Code(s): E11.65 - Type 2 diabetes mellitus with hyperglycemia (5) ESRD (end stage renal disease) Current Visit: No Status: Chronic (6) History of CVA (cerebrovascular accident) Current Visit: No Status: Chronic (7) Sepsis Current Visit: No Status: Resolved - Plan S/P BKA. General surgery is following for wound care. Continue current antibiotics. Blood cultures growing Gram negative rods. Repeat blood culture Monitor CBC to follow leukocytosis. Cautious IV hydration given history of nephrotic syndrome. Feeding resumed Control blood sugar with insulin sliding scale and Lantus insulin. Hemodialysis per nephrology.
[2020-08-17 10:44] LABS: Absolute Lymphocytes (CBC) 0.5 K/uL (0.7-4.9); Basophils % 0.3 % (0-1.3); Hematocrit 27.4 % (36.0-45.0); Lymphocytes % 1.9 % (15.3-44.8); RBC Red Blood Cell Count 2.98 M/uL (3.86-4.86)
[2020-08-17 10:59] LABS: Potassium 4.9 mmol/L (3.5-5.1)
[2020-08-17 11:21] LABS: Blood Morphology Comment NOT SEEN (NOT SEEN); Platelet Estimate ADEQ
[2020-08-17] MEDS: MIDODRINE HCL 5 MG TABLET PO SCH ×2 (14:00→20:38)
--- NOTE | 2020-08-17 16:13 | EKG ---
Test Date: 2020-08-15 Test Time: 17:50:23 Charter Boat Captain: BESSY MEASUREMENT RESULTS: Intervals: Rate: 75 OK: 138 QRSD: 82 QT: 404 QTc: 451 [place]: P: 68 OK: 138 QRS: 25 T: 76 INTERPRETIVE STATEMENTS: Normal sinus rhythm Normal ECG Compared to ECG 07/06/2020 08:58:48 No significant changes Electronically Signed On 08-17-20 16:09:49 CEMETERY COUNSELOR by Elder Tejeda
[2020-08-17] MEDS: GABAPENTIN 100 MG CAP PO SCH (17:00)
[2020-08-17] MEDS: HYDROMORPHONE HCL 1 MG/ML INJ IV PRN (18:21)
[2020-08-17] MEDS: ATORVASTATIN 20 MG TAB PO SCH (20:38)
[2020-08-17] MEDS: TOUJEO MAX SQ SCH (20:43)
--- NOTE | 2020-08-17 22:01 | PN ---
Date of Progress Note: 08/17/2020 Chief Complaint: End-stage renal disease, on dialysis 3 times per week. History Of Present Illness: The patient underwent BKA. Subsequently, dialysis was scheduled yesterd ay, although the patient has borderline hypotension. She received IV albumin and IV normal saline. Blood pressure stabilized, although dialysis was finished early. Today, the patient underwent dialys is and she received midodrine for blood pressure support. The patient has multiple medical problems including history of diabetic retinopathy, nephropathy, and neuropathy. She developed osteomyelitis and completed antibiotic treatment, although she required amputation for severe cellulitis of the lef t foot with osteomyelitis. She underwent below-knee amputation of the left lower extremity. Review of Systems: Denies PND or orthopnea. Physical Examination: Lungs: Diminished breath sounds at bases. Heart: S1, S2. Abdomen: Soft, benign. Extremities: Dressing in place. Laboratory Data: Sodium 130, potassium 4.6, chloride 92, CO2 20, BUN 73, creatinine 7.42, glucose 30 4, calcium 8.6. Impression And Plan: 1.Mild fluid overload. Continue p.o. fluid restriction. Ultrafiltration was done with dialysis. C ontinue midodrine for blood pressure support. 2.Anemia due to chronic kidney disease. Continue Epogen. 3.Severe leukocytosis secondary to osteomyelitis, status post [id number] amputation. Continue w ound care and antibiotics. EB/MODL Voice ID: [id number] Report ID: [id number]
[2020-08-17] MEDS ORDERED: NA CHLORIDE 0.9% 250 ML ONE (22:06)
[2020-08-17] MEDS ORDERED: VANCOMYCIN 1 GM/VIAL ONE (22:06)
[2020-08-17] MEDS ORDERED: NA CHLORIDE 0.9% 500 ML ONE (22:06)
[2020-08-18] MEDS: PIPER/TAZO/NS 2.25gm 2.25 GM/50 ML BAG IVPB SCH (00:50)
[2020-08-18] MEDS: HYDROCODONE/APAP 5/325 MG TAB PO PRN ×3 (02:02→20:26)
[2020-08-18] MEDS: ACETAMINOPHEN 500 MG TAB PO PRN (04:51)
[2020-08-18 06:21] LABS: Potassium 3.7 mmol/L (3.5-5.1)
[2020-08-18 06:25] LABS: Absolute Lymphocytes (CBC) 1.4 K/uL (0.7-4.9); Basophils % 0.1 % (0-1.3); Hematocrit 27.3 % (36.0-45.0); Lymphocytes % 7.3 % (15.3-44.8); RBC Red Blood Cell Count 2.91 M/uL (3.86-4.86)
[2020-08-18] MEDS: CALCITROL 0.25 MCG CAP PO SCH (08:33)
[2020-08-18] MEDS: MIDODRINE HCL 5 MG TABLET PO SCH ×3 (08:33→20:27)
[2020-08-18] MEDS: FOLIC ACID 1 MG TABLET PO SCH (08:33)
[2020-08-18] MEDS: HYDROMORPHONE HCL 1 MG/ML INJ IV PRN ×2 (08:34→18:09)
[2020-08-18] MEDS: CALCIUM CARBONATE CHEW 500MG TAB PO SCH ×3 (08:34→17:00)
[2020-08-18] MEDS: ASPIRIN 81 MG CHEWABLE TABLET PO SCH (08:34)
[2020-08-18] MEDS: INSULIN -REGULAR HUMAN 50 UNIT/0.5 ML ML SQ SCH ×4 (09:29→23:17)
[2020-08-18] MEDS ORDERED: CEFTRIAXONE/SWI 1gm 1 GM/10 ML SYR IV SCH (10:45)
--- NOTE | 2020-08-18 11:02 | PN ---
Date of Progress Note: 08/18/2020 Subjective: Patient is awake, alert, complaining of phantom pain. Objective: VITALS: Stable, afebrile. Laboratory Data: White count is 18.6. Cultures reviewed. There was Klebsiella pneumoniae in the wo und as well as the blood cultures. She is on appropriate antibiotics. Dressings are clean, dry, and intact. Assessment: Status post right BKA for gas gangrene and sepsis with septicemia. Recommendations: Continue antibiotics as ordered. Physical therapy. Rehab evaluation. Clinically, patient is slowly improving. /MODL Voice ID: [id number] Report ID: [id number]
[2020-08-18] MEDS: CEFTRIAXONE/SWI 1gm 1 GM/10 ML SYR IV SCH (11:30)
--- NOTE | 2020-08-18 11:40 | P.PN ---
Subjective Date of Service: 08/18/20 Chief Complaint: Foot pain Patient is awake and interactive. Leukocytosis trending down. Multiple Blood culture bottles have grown Klebsiella pneumonia. Patient is tolerating feeding. Physical Examination - Vital Signs Temperature: 97.3 F Blood Pressure: 118/56 Pulse: 68 Respirations: 18 Pulse Ox (%): 98 - Physical Exam General: In no apparent distress, Other (Awake) Respiratory: Clear to auscultation bilaterally, Normal air movement Cardiovascular: No edema, Regular rate/rhythm, Normal S1 S2 Gastrointestinal: Normal bowel sounds, Soft and benign, Non-distended, No tenderness Musculoskeletal: Other (Right BKA) Neurological: Other (Nonfocal) - Studies Microbiology Data (last 24 hrs): 08/15/20 18:05 Blood - Blood Aerobic Blood Culture - Final Klebsiella Pneumoniae 08/15/20 18:05 Blood - Blood Blood Culture Gram Stain - Final 08/15/20 18:05 Blood - Blood Anaerobic Blood Culture - Final Klebsiella Pneumoniae 08/15/20 18:05 Blood - Blood Gram Stain - Final Assessment And Plan - Current Problems (Diagnosis) (1) Gangrene of right foot Current Visit: Yes Status: Acute (2) History of CVA (cerebrovascular accident) Current Visit: Yes Status: Acute (3) Peripheral vascular disease Current Visit: Yes Status: Acute (4) Diabetes mellitus type II, uncontrolled Onset Date: 10/08/15 Current Visit: No Status: Chronic Qualifiers: Glycemic state: with hyperglycemia Qualified Code(s): E11.65 - Type 2 diabetes mellitus with hyperglycemia (5) ESRD (end stage renal disease) Current Visit: No Status: Chronic (6) History of CVA (cerebrovascular accident) Current Visit: No Status: Chronic (7) Sepsis Current Visit: No Status: Resolved - Plan S/P BKA 08/16/2020 General surgery is following for wound care. Continue current antibiotics. Blood cultures growing Klebsiella pneumonia. Repeat blood culture is pending. Antibiotics changed to Rocephin and vancomycin. Monitor CBC to follow leukocytosis. IV fluid discontinued. Feeding resumed Control blood sugar with insulin sliding scale and Lantus insulin. Hemodialysis per nephrology.
[2020-08-18] MEDS ORDERED: MIDODRINE HCL 5 MG TABLET PO PRN (12:54)
[2020-08-18] MEDS: ATORVASTATIN 20 MG TAB PO SCH (20:27)
[2020-08-18] MEDS: TOUJEO MAX SQ SCH (21:00)
[2020-08-19] MEDS: HYDROMORPHONE HCL 1 MG/ML INJ IV PRN ×2 (03:58→20:01)
[2020-08-19 04:25] LABS: Absolute Lymphocytes (CBC) 1.4 K/uL (0.7-4.9); Basophils % 0.7 % (0-1.3); Hematocrit 27.6 % (36.0-45.0); Lymphocytes % 9.7 % (15.3-44.8); MPV 7.9 fL (7.6-11.3); RBC Red Blood Cell Count 3.02 M/uL (3.86-4.86)
[2020-08-19 05:02] LABS: Potassium 3.6 mmol/L (3.5-5.1)
[2020-08-19] MEDS: INSULIN -REGULAR HUMAN 50 UNIT/0.5 ML ML SQ SCH ×4 (07:37→22:16)
[2020-08-19] MEDS: CALCIUM CARBONATE CHEW 500MG TAB PO SCH ×3 (08:39→17:00)
[2020-08-19] MEDS: MIDODRINE HCL 5 MG TABLET PO SCH ×3 (09:00→22:17)
[2020-08-19] MEDS: CEFTRIAXONE/SWI 1gm 1 GM/10 ML SYR IV SCH (09:00)
[2020-08-19] MEDS: FOLIC ACID 1 MG TABLET PO SCH (09:00)
[2020-08-19] MEDS: ASPIRIN 81 MG CHEWABLE TABLET PO SCH (09:00)
[2020-08-19] MEDS ORDERED: CEFTRIAXONE/SWI 1gm 1 GM/10 ML SYR IV SCH (09:00)
--- NOTE | 2020-08-19 11:16 | P.PN ---
Subjective Date of Service: 08/19/20 Chief Complaint: Foot pain Patient is awake and interactive. Leukocytosis continue to trend down. Multiple Blood culture bottles have grown Klebsiella pneumonia. Repeat blood culture: No growth to date. Physical Examination - Vital Signs Temperature: 98.2 F Blood Pressure: 139/63 Pulse: 67 Respirations: 16 Pulse Ox (%): 97 - Physical Exam General: In no apparent distress, Other (Awake) Respiratory: Clear to auscultation bilaterally, Normal air movement Cardiovascular: No edema, Regular rate/rhythm, Normal S1 S2 Gastrointestinal: Soft and benign, Non-distended, No tenderness Musculoskeletal: No swelling, Other (Right BKA) Integumentary: No rashes Neurological: Other (No focal deficit.) - Studies Microbiology Data (last 24 hrs): 08/15/20 18:05 Blood - Blood Aerobic Blood Culture - Final Klebsiella Pneumoniae 08/15/20 18:05 Blood - Blood Blood Culture Gram Stain - Final 08/15/20 18:05 Blood - Blood Anaerobic Blood Culture - Final Klebsiella Pneumoniae 08/15/20 18:05 Blood - Blood Gram Stain - Final Assessment And Plan - Current Problems (Diagnosis) (1) Gangrene of right foot Current Visit: Yes Status: Acute (2) History of CVA (cerebrovascular accident) Current Visit: Yes Status: Acute (3) Peripheral vascular disease Current Visit: Yes Status: Acute (4) Diabetes mellitus type II, uncontrolled Onset Date: 10/08/15 Current Visit: No Status: Chronic Qualifiers: Glycemic state: with hyperglycemia Qualified Code(s): E11.65 - Type 2 diabetes mellitus with hyperglycemia (5) ESRD (end stage renal disease) Current Visit: No Status: Chronic (6) History of CVA (cerebrovascular accident) Current Visit: No Status: Chronic (7) Sepsis Current Visit: No Status: Resolved - Plan S/P BKA 08/16/2020 General surgery is following for wound care. Continue current antibiotics. Blood cultures growing Klebsiella pneumonia. Repeat blood culture: No growth Monitor CBC to follow leukocytosis. Infectious disease consult. IV fluid discontinued. Feeding resumed Control blood sugar with insulin sliding scale and Lantus insulin. Routine hemodialysis per nephrology.
--- NOTE | 2020-08-19 11:28 | PN ---
Date of Progress Note: 08/19/2020 Subjective: The patient is awake, alert. Complaining of incisional pain. Objective: Vital Signs: Stable. She is afebrile. Extremities: Dressing is clean, dry, and intact. Laboratory Data: White count is 14.1. Left shift is improving as well. Her blood cultures were add ressed already and she is on appropriate IV antibiotics. Assessment: Status post right [id number] for gas gangrene. Recommendations: Continue antibiotics as ordered. Physical therapy, Rehab evaluation. The patient is clinically improving. /MODL Voice ID: [id number] Report ID: [id number]
[2020-08-19] MEDS: HYDROCODONE/APAP 5/325 MG TAB PO PRN ×3 (11:40→23:09)
--- NOTE | 2020-08-19 20:30 | PN ---
Date of Progress Note: 08/18/2020 Chief Complaint: End-stage renal disease, on dialysis 3 times per week. History Of Present Illness: The patient is undergoing treatment for metabolic clearance and ultrafil tration. She tolerated dialysis. Primarily, she was dialyzed and required IV albumin for blood pres sure support. Dialysis was rescheduled. The patient is undergoing antibiotic treatment for diabetic foot infection. She underwent BKA during this admission and surgical team is overseeing wound here. Review of Systems: Denies PND or orthopnea. Physical Examination: Lungs: Diminished breath sounds at bases. Heart: S1, S2. Abdomen: Soft, benign. Extremities: Dressing in place. Impression And Plan: 1.Mild fluid overload. Continue p.o. fluid restriction. Dialysis was done with ultrafiltration. P rocedure was well tolerated. The patient is hemodynamically stable. The patient was started on mido drine for blood pressure support during dialysis. 2.Anemia due to chronic kidney disease. Continue Epogen. 3.Severe leukocytosis due to osteomyelitis, improving with antibiotics, status post kzrpo-pyh-cgzu a mputation. Continue wound care and antibiotic therapy. 4.Renal osteodystrophy. Continue renal diet and binders. 5.Diabetes mellitus with renal manifestation. Continue insulin treatment. EB/MODL Voice ID: [id number] Report ID: [id number]
[2020-08-19] MEDS: TOUJEO MAX SQ SCH (21:00)
[2020-08-19] MEDS: ATORVASTATIN 20 MG TAB PO SCH (22:17)
--- NOTE | 2020-08-20 00:29 | PN ---
Date of Progress Note: 08/19/2020 Chief Complaint: End-stage renal disease, diabetic kidney disease, hypertensive heart and kidney dis ease, diabetic peripheral neuropathy. History Of Present Illness: The patient developed gangrene of the right foot. She underwent BKA. Review of Systems: Denies PND or orthopnea. Physical Examination: Lungs: Diminished breath sounds at bases. Heart: S1, S2. No pericardial friction rub. Abdomen: Soft, benign. Extremities: Dressing in place. Impression And Plan: 1.End-stage renal disease. Next dialysis tomorrow. Mild fluid overload. The patient will continue p.o. fluid restriction, underwent ultrafiltration with dialysis to control fluid overload. 2.Anemia due to chronic kidney disease. Consider blood transfusion. Continue Epogen. 3.Severe leukocytosis due to osteomyelitis, improving with antibiotics, status post below-knee amput ation. Continue antibiotics and wound care. 4.Renal osteodystrophy. Continue renal diet and binders. 5.Diabetes mellitus with renal manifestation. Continue insulin. EB/MODL Voice ID: [id number] Report ID: [id number]
[2020-08-20] MEDS: HYDROMORPHONE HCL 1 MG/ML INJ IV PRN ×6 (00:47→22:03)
[2020-08-20 04:43] LABS: Absolute Lymphocytes (CBC) 1.5 K/uL (0.7-4.9); Basophils % 0.7 % (0-1.3); Hematocrit 26.7 % (36.0-45.0); Lymphocytes % 12.6 % (15.3-44.8); MPV 7.6 fL (7.6-11.3); RBC Red Blood Cell Count 2.92 M/uL (3.86-4.86)
[2020-08-20 05:14] LABS: Potassium 3.8 mmol/L (3.5-5.1)
[2020-08-20] MEDS: HYDROCODONE/APAP 5/325 MG TAB PO PRN ×3 (05:19→16:56)
[2020-08-20] MEDS: INSULIN -REGULAR HUMAN 50 UNIT/0.5 ML ML SQ SCH ×4 (08:21→21:00)
[2020-08-20] MEDS: ASPIRIN 81 MG CHEWABLE TABLET PO SCH (08:22)
[2020-08-20] MEDS: FOLIC ACID 1 MG TABLET PO SCH (08:22)
[2020-08-20] MEDS: CEFTRIAXONE/SWI 1gm 1 GM/10 ML SYR IV SCH (08:22)
[2020-08-20] MEDS: MIDODRINE HCL 5 MG TABLET PO SCH ×3 (08:22→22:03)
[2020-08-20] MEDS: CALCITROL 0.25 MCG CAP PO SCH (08:22)
[2020-08-20] MEDS: CALCIUM CARBONATE CHEW 500MG TAB PO SCH ×3 (08:22→16:55)
[2020-08-20] MEDS: EPOETIN ALFA 10,000 UNIT/ML VIAL IV SCH (13:00)
[2020-08-20] MEDS: GABAPENTIN 100 MG CAP PO SCH (16:55)
--- NOTE | 2020-08-20 17:52 | P.PN ---
Subjective Date of Service: 08/20/20 Chief Complaint: Foot pain Patient is awake and complaining of pain in the right leg and the sacral area Leukocytosis continue to trend down. Multiple Blood culture bottles have grown Klebsiella pneumonia. Repeat blood culture: No growth to date. Patient has been afebrile. Physical Examination - Vital Signs Temperature: 98.2 F Blood Pressure: 166/72 Pulse: 64 Respirations: 20 Pulse Ox (%): 100 - Physical Exam General: In no apparent distress, Other (Awake) Respiratory: Clear to auscultation bilaterally, Normal air movement Cardiovascular: No edema, Regular rate/rhythm, Normal S1 S2 Gastrointestinal: Soft and benign, Non-distended, No tenderness Musculoskeletal: Other (New right BKA-wound dressing not soaked.) Integumentary: Pressure ulcer (Stage II sacral) Neurological: Other (No focal deficit.) - Studies Microbiology Data (last 24 hrs): 08/15/20 17:50 Blood - Blood Aerobic Blood Culture - Final Klebsiella Pneumoniae 08/15/20 17:50 Blood - Blood Anaerobic Blood Culture - Final Klebsiella Pneumoniae 08/15/20 17:50 Blood - Blood Gram Stain - Final Assessment And Plan - Current Problems (Diagnosis) (1) Gangrene of right foot Current Visit: Yes Status: Acute (2) History of CVA (cerebrovascular accident) Current Visit: Yes Status: Acute (3) Peripheral vascular disease Current Visit: Yes Status: Acute (4) Diabetes mellitus type II, uncontrolled Onset Date: 10/08/15 Current Visit: No Status: Chronic Qualifiers: Glycemic state: with hyperglycemia Qualified Code(s): E11.65 - Type 2 diabetes mellitus with hyperglycemia (5) ESRD (end stage renal disease) Current Visit: No Status: Chronic (6) History of CVA (cerebrovascular accident) Current Visit: No Status: Chronic (7) Sepsis Current Visit: No Status: Resolved - Plan S/P BKA 08/16/2020 General surgery is following for wound care. Blood cultures grew Klebsiella pneumonia. Repeat blood cultures negative. Infectious disease input appreciated. Dr. Ch recommend IV antibiotics for a week as outpatient to be given during dialysis. Continue IV Rocephin. Discontinue vancomycin. Family requesting SNF placement. Patient is eating well. Control blood sugar with insulin sliding scale and Lantus insulin. Routine hemodialysis per nephrology. Decubitus ulcer precautions-frequent turning. Frequent cleaning and dry sacral area. Patient is currently on air-bed mattress
[2020-08-20] MEDS: TOUJEO MAX SQ SCH (21:00)
--- NOTE | 2020-08-20 21:15 | PN ---
Date of Progress Note: 08/20/2020 Chief Complaint: End-stage renal disease, on dialysis; diabetic kidney disease; hypertensive heart a nd kidney disease; diabetic peripheral neuropathy; osteomyelitis; diabetic foot infection. Review of Systems: Denies PND or orthopnea. Physical Examination: Lungs: Diminished breath sounds at bases. Heart: S1, S2. Abdomen: Soft, benign. Extremities: Dressing in place. Impression And Plan: 1.End-stage renal disease. Next dialysis on Thursday. The patient underwent dialysis today and to lerated procedure very well. Blood pressure was well maintained during ultrafiltration. The patient is on midodrine for blood pressure support to prevent intradialysis hypotension. 2.Anemia due to chronic kidney disease. Continue LINWOOD. 3.Severe leukocytosis due to osteomyelitis, improving with antibiotics, status post below-knee amput ation. Continue antibiotics and wound care. 4.Renal osteodystrophy. Continue renal diet and binders. 5.Diabetes mellitus with renal manifestation. Continue insulin. EB/MODL Voice ID: [id number] Report ID: [id number]
[2020-08-20] MEDS: ATORVASTATIN 20 MG TAB PO SCH (22:03)
--- NOTE | 2020-08-21 00:06 | CON ---
History Of Present Illness: This is a 44-year-old female, who was consulted for antibiotic managemen t. The patient came initially with right foot gangrene. The patient has significant past medical hi story of end-stage renal disease, diabetes mellitus, diabetic neuropathy, blindness, peripheral arter ial disease. The patient had her BKA done on August 16 and her white count has been consistently coming down. She was initially started on vancomycin and Rocephin. Her white count has come down f rom 25,000 to 11,000 today with no fevers. Past Medical History: End-stage renal disease, hypertension, thyroid cancer, legally blind in both e yes, neuropathy, diabetes mellitus, GERD, hyperlipidemia, stroke x3. Past Surgical History: Cholecystectomy, thyroidectomy, multiple eye surgery, , hemodialysis graft placement to the left arm, BKA on 08/16/2020. Family History: Noncontributory. Medications: Vancomycin, Rocephin. See MAR for other medications. Allergies: NO KNOWN DRUG ALLERGIES. Review of Systems: Ten-point review was performed. Physical Examination: General: This is a 44-year-old female, lying in bed, not in any acute cardiopulmonary distress. Vital signs: Temperature 98.7, pulse 68, respirations 16, blood pressure 159/73. HEENT: Bilateral eye blindness. Neck: Supple. Lungs: Basal crackles. Heart: S1, S2. Regular. Abdomen: Soft, nontender. Bowel sounds present. Extremities: Right leg with surgical dressing to the BKA stump site. Rudy are in place. Right k nee has an ecchymotic area, most likely from the knee brace. Laboratory Data: WBC 11.7, hemoglobin 8.8, platelets 474. Sodium 134, potassium 3.8, chloride 96, b icarb 27, BUN 51, creatinine 6.2. Sugars are 257. Micro and x-ray are reviewed. Assessment And Plan: A 44-year-old female with end-stage renal disease, diabetes mellitus, and gangr enous changes to the right foot, had amputation done on August 16. The patient's leukocytosis have improved. The patient also has significant protein-calorie malnourishment, anemia, sepsis, which liu s resolved. Currently, on vancomycin and Rocephin. We will recommend to stop vancomycin, continue R ocephin, and can be switched to oral on discharge. Thank you Dr. Clarke for consult. MALINI/KERI Voice ID: [id number] Report ID: [id number]
[2020-08-21] MEDS: HYDROMORPHONE HCL 1 MG/ML INJ IV PRN ×4 (05:06→20:24)
[2020-08-21 05:35] LABS: Absolute Lymphocytes (CBC) 1.6 K/uL (0.7-4.9); Basophils % 0.7 % (0-1.3); Hematocrit 28.6 % (36.0-45.0); MPV 7.7 fL (7.6-11.3); RBC Red Blood Cell Count 3.13 M/uL (3.86-4.86)
[2020-08-21 06:04] LABS: Magnesium 2.1 mg/dL (1.8-2.4); Potassium 3.8 mmol/L (3.5-5.1)
[2020-08-21 07:05] LABS: Blood Morphology Comment NOT SEEN (NOT SEEN); Platelet Estimate ADEQ
[2020-08-21] MEDS: MIDODRINE HCL 5 MG TABLET PO SCH (09:00)
[2020-08-21] MEDS: CALCIUM CARBONATE CHEW 500MG TAB PO SCH ×3 (09:36→16:16)
[2020-08-21] MEDS: INSULIN -REGULAR HUMAN 50 UNIT/0.5 ML ML SQ SCH ×4 (09:36→20:25)
[2020-08-21] MEDS: ASPIRIN 81 MG CHEWABLE TABLET PO SCH (09:37)
[2020-08-21] MEDS: CEFTRIAXONE/SWI 1gm 1 GM/10 ML SYR IV SCH (09:37)
[2020-08-21] MEDS: FOLIC ACID 1 MG TABLET PO SCH (09:37)
[2020-08-21] MEDS: PSYLLIUM 1 PKT PO SCH ×2 (11:49→20:24)
[2020-08-21] MEDS: DOCUSATE NA 100 MG CAP PO SCH ×2 (11:49→20:24)
[2020-08-21] MEDS: HYDROCODONE/APAP 5/325 MG TAB PO PRN (11:49)
[2020-08-21 12:08] LABS: Hematocrit 28.2 % (36.0-45.0)
--- NOTE | 2020-08-21 14:17 | PN ---
Date of Progress Note: 08/21/2020 Subjective: The patient was admitted with osteomyelitis. The patient was treated. The patient had leukocytosis. After adjusting antibiotic white cell count started trending down. Objective: Vital Signs: Blood pressure 136/63, pulse of 68, afebrile. Chest: Clear to auscultation. Heart: S1 and S2 regular. Abdomen: Soft, nontender. Extremities: Right below-knee amputation. Laboratory Data: Sodium 136, potassium 3.8, bicarb 28, BUN 26, creatinine 4.1, calcium 9, magnesium of 2. H and H 9.3/28.2, WBC 10.4. Current Medications: The patient on it includes: 1. Ceftriaxone. 2. Aspirin. 3. Midodrine. 4. Epogen. 5. Calcium carbonate. 6. Atorvastatin. 7. Gabapentin. 8. Zofran. Assessment/plan: 1. End-stage renal disease. Normal volume. We will continue the patient on current dialysis schedule. The patient is going to be dialyze tomorrow. 2. Hyperkalemia. The patient is going to continue to be dialyzed on low- potassium bath. 3. Anemia of chronic kidney disease. Continue LINWOOD. 4. Secondary hyperparathyroidism. I am going to resume for the patient on calcium carbonate. We will follow up phosphorus level for the patient. 5. Leukocytosis. Seen by ID. Vancomycin has been discontinued. WBC trending down. We will follow up. 6. Osteomyelitis. Continue current antibiotic. Follow up with ID. 7. Diabetes. As by primary. time spend exam the patient face to face , place order , discussed the case with other steam hand hospitalist and other instructional design consultant 45 min. CASSIE/KERI Voice ID: [id number] Report ID: [id number] DAYANARA
[2020-08-21] MEDS: SEVELAMER CARBONATE 800 MG TABLET PO SCH (16:16)
[2020-08-21] MEDS ORDERED: HYDROCORTISONE ACETATE 25MG SUPP PR ONE (18:00)
--- NOTE | 2020-08-21 18:03 | P.PN ---
Subjective Date of Service: 08/21/20 Chief Complaint: Foot pain Subjective: Other (continues with pain in legs, decreased appetite. had some blood from rectum yesterday, concern for possible vaginal bleeding initially. pt denies abdominal pain. +slight nausea.) Review of Systems 10-point ROS is otherwise unremarkable Physical Examination - Vital Signs Temperature: 98.4 F Blood Pressure: 169/76 Pulse: 69 Respirations: 16 Pulse Ox (%): 97 - Physical Exam General: Alert, In no apparent distress Cardiovascular: Regular rate/rhythm Gastrointestinal: Soft and benign, Non-distended, No tenderness Musculoskeletal: Other (RLE: RUBEN bandage in place) Integumentary: No significant lesion Neurological: Normal speech, Normal affect Assessment & Plan Physician Review Additional Text: Gangrene of right foot now s/p BKA History of CVA (cerebrovascular accident) Peripheral vascular disease Diabetes mellitus type II, uncontrolled ESRD (end stage renal disease) History of CVA (cerebrovascular accident) Sepsis Rectal bleed - some red blood mixed with soft stool, no obvious/large hemorrhoid palpable on exam, +hard stool in rectal vault pt reports h/o hemorrhoids, had some bleeding a few weeks ago possible hemorrhoid vs stercoral ulcer - pt with some constipation the past few days added colace, metamucil, will give enema x1 today, hydrocrotisone suppository S/P BKA 08/16/2020 General surgery is following for wound care. Blood cultures grew Klebsiella pneumonia. Repeat blood cultures negative. Infectious disease input appreciated. - consider PO doxy on discharge. Continue IV Rocephin Patient reports not eating well, consult tester sound Control blood sugar with insulin sliding scale and Lantus insulin. Routine hemodialysis per nephrology. Decubitus ulcer precautions-frequent turning. Frequent cleaning and dry sacral area. Patient is currently on air-bed mattress Dispo: family requesting SNF placement, pt would benefit ongoing issues with bleeding at this time Time Spent Managing Pts Care (In Minutes): 45
[2020-08-21 18:25] LABS: Hematocrit 27.7 % (36.0-45.0)
[2020-08-21] MEDS: ATORVASTATIN 20 MG TAB PO SCH (20:24)
[2020-08-21] MEDS: TOUJEO MAX SQ SCH (20:24)
[2020-08-22 02:21] LABS: Absolute Lymphocytes (CBC) 1.5 K/uL (0.7-4.9); Hematocrit 28.4 % (36.0-45.0); Lymphocytes % 15.4 % (15.3-44.8); MPV 7.7 fL (7.6-11.3); RBC Red Blood Cell Count 3.14 M/uL (3.86-4.86)
[2020-08-22 02:48] LABS: Albumin 1.9 g/dL (3.4-5.0); Phosphorus 4.1 mg/dL (2.5-4.9); Potassium 4.1 mmol/L (3.5-5.1)
[2020-08-22] MEDS: HYDROMORPHONE HCL 1 MG/ML INJ IV PRN ×3 (02:57→16:59)
[2020-08-22] MEDS: HYDROCODONE/APAP 5/325 MG TAB PO PRN ×2 (05:42→20:58)
[2020-08-22] MEDS: INSULIN -REGULAR HUMAN 50 UNIT/0.5 ML ML SQ SCH ×4 (07:30→20:57)
[2020-08-22] MEDS: PSYLLIUM 1 PKT PO SCH ×2 (10:16→20:58)
[2020-08-22] MEDS: ASPIRIN 81 MG CHEWABLE TABLET PO SCH (10:17)
[2020-08-22] MEDS: SEVELAMER CARBONATE 800 MG TABLET PO SCH ×4 (10:17→17:39)
[2020-08-22] MEDS: CALCITROL 0.25 MCG CAP PO SCH (10:17)
[2020-08-22] MEDS: CALCIUM CARBONATE CHEW 500MG TAB PO SCH ×3 (10:17→17:39)
[2020-08-22] MEDS: FOLIC ACID 1 MG TABLET PO SCH (10:17)
[2020-08-22] MEDS: DOCUSATE NA 100 MG CAP PO SCH ×2 (10:17→20:57)
[2020-08-22] MEDS: CEFTRIAXONE/SWI 1gm 1 GM/10 ML SYR IV SCH (10:18)
--- NOTE | 2020-08-22 10:19 | RAD REPORT ---
EXAM DESCRIPTION: CT - Abdomen Pelvis Wo Contrast - 08/22/2020 9:48 am CLINICAL HISTORY: suprapubic pain, gi bleed COMPARISON: Stone Protocol dated 08/15/2020; Abdomen Pelvis Wo Contrast dated 02/21/2020 TECHNIQUE: Axial [address] imaging of the abdomen and pelvis was performed without IV contrast. No IV contrast was given because of allergy, abnormal renal function, patient refusal or physician re quest. Oral contrast was given. All CT scans are performed using dose optimization technique as appropriate and may include automated exposure control or mA/KV adjustment according to patient size. FINDINGS: No suspicious findings in the lung bases. No pericardial effusion. The liver, spleen and pancreas show no suspicious findings on non-contrast imaging. Gallbladder and b iliary tree are also without suspicious finding. No hydronephrosis or suspicious renal mass. Renal function cannot be assessed on noncontrast study. D ense arterial tree calcifications are present. There is minimal perinephric stranding present. Renal findings are similar to July 2020 imaging. No significant adrenal finding. Isodense renal masses and pyelonephritis cannot be excluded in the absence of IV contrast. Urinary bladder is fully contrac darian which precludes accurate assessment of wall thickness. No bladder calculi seen. Enlarged multi fi broid uterus is noted. These are densely calcified with the largest 4.3 cm in size. No changes to the ovaries since the comparison study. No gastric dilatation or gastric wall thickening. No acute small bowel finding identifiable. Moderate stool volume is present throughout the colon from cecum 2 tortuous sigmoid colon. There is a large s tool volume distending the rectum to 6.6 cm. There stranding or edema in the presacral fatty tissues and along the lateral margins of the distended rectum. This is a stercoral colitis pattern similar to July. No free air, free fluid or pneumatosis. No other sites of inflammatory stranding. There is fluid rete ntion in the subcutaneous fatty tissues. No hernia, mass or bulky lymphadenopathy. Disc and bony degenerative changes are present. Lumbosacral transition body is present labeled L5 for the study. Patient has bilateral L4 pars defects without subluxation. Broad-based disc bulging is pr esent at this level. IMPRESSION: Large stool volume distending the rectum to 6.6 cm with edematous stranding in the melvi cral fatty tissues and along the lateral sides of the rectum. This stercoral colitis pattern is simil ar to Ernie No hydronephrosis or acute renal finding. Urinary bladder is fully contracted which precludes accurat e assessment. Full assessment is limited is the absence of IV contrast. Nonacute findings are detailed in the body of the report similar to comparison.
[2020-08-22 10:21] LABS: Hematocrit 28.7 % (36.0-45.0)
[2020-08-22] MEDS: HYDROCORTISONE ACETATE 25MG SUPP PR SCH (10:30)
--- NOTE | 2020-08-22 11:06 | RAD REPORT ---
EXAM DESCRIPTION: NM - GI Blood Loss Imaging - 08/22/2020 10:33 am CLINICAL HISTORY: blood in stool COMPARISON: Stone Protocol dated 08/15/2020 TECHNIQUE: The patient was administered 24.8 millicuries technetium 99 M labeled RBCs. Imaging of th e abdomen and pelvis was performed for 60 minutes. FINDINGS: Imaging shows normal liver and spleen activity along with normal activity in the great ves sels. There is no abnormal activity seen to indicate an active GI bleed. IMPRESSION: Negative GI bleeding study.
[2020-08-22] MEDS: EPOETIN ALFA 10,000 UNIT/ML VIAL IV SCH (13:02)
[2020-08-22] MEDS: GABAPENTIN 100 MG CAP PO SCH (17:39)
[2020-08-22 18:26] LABS: Hematocrit 30.1 % (36.0-45.0)
--- NOTE | 2020-08-22 18:31 | P.PN ---
Subjective Date of Service: 08/22/20 Chief Complaint: Foot pain Subjective: No new changes (continues with phantom limb pain, reporting abdominal pain this morning, states this has been ongoing since before admission now as well as pain in her "butt". continues with small blood clots / blood mix ed with stool. no solid BM in several days) Review of Systems 10-point ROS is otherwise unremarkable Physical Examination - Vital Signs Temperature: 98.0 F Blood Pressure: 143/65 Pulse: 73 Respirations: 16 Pulse Ox (%): 100 - Physical Exam General: Alert, Mild distress Respiratory: Other (nonlabored on RA) Cardiovascular: Regular rate/rhythm Gastrointestinal: Soft and benign, Non-distended, Tenderness (mild in lower abdomen) Integumentary: Other (RLE: BKA amputation site appears clean, no signs of infection) Neurological: Normal speech, Normal affect Assessment & Plan Physician Review Additional Text: Gangrene of right foot now s/p BKA Rectal bleed History of CVA (cerebrovascular accident) Peripheral vascular disease Diabetes mellitus type II, uncontrolled ESRD (end stage renal disease) History of CVA (cerebrovascular accident) Sepsis Rectal bleed - some red blood mixed with soft stool, no obvious/large hemorrhoid palpable on exam, +hard stool in rectal vault Hgb stable, will reduce frequency of checks reviewed CT on admission, with significant stool load, and concern for stercoral colitis will obtain bleeding scan and repeat CT abd/pelvis today started bowel regimen yesterday, refused enema yesterday, continue hydrocortisone suppository - seems to have slightly less bleeding today will given enema today, discussed importance with patient if continues to bleed and not passing stool, may benefit from GI service - would need transfer discussed with family, with ongoing pain, PT/OT, bleeding, could benefit from LTAC, they are in agreement, will discuss with [facility] S/P BKA 08/16/2020 General surgery is following for wound care. Blood cultures grew Klebsiella pneumonia. Repeat blood cultures negative. Infectious disease input appreciated. - consider PO doxy on discharge for total antibiotics of 14d since amputation. Continue IV Rocephin while inpatint Patient reports not eating well, consulted cattle rancher, she ate a little more today continue insulin sliding scale Routine hemodialysis per nephrology. Decubitus ulcer precautions-frequent turning. Frequent cleaning and dry sacral area. Patient is currently on air-bed mattress Dispo: for possible LTAC placement, may need to transfer for GI services if worsening bleed Time Spent Managing Pts Care (In Minutes): 40
[2020-08-22 20:40] LABS: HBsAG Nonreactive (Nonreactive)
[2020-08-22] MEDS: NEPRO SHAKE 237 ML CAN PO SCH (20:57)
[2020-08-22] MEDS: ATORVASTATIN 20 MG TAB PO SCH (20:58)
[2020-08-22] MEDS: TOUJEO MAX SQ SCH (20:58)
--- NOTE | 2020-08-22 23:35 | PN ---
Date of Progress Note: 08/22/2020 Subjective: Patient was admitted with infected foot. The patient had a GI bleed. The patient is scheduled for a nuclear medicine bleeding scan. Objective: Vital Signs: Blood pressure 161/70, pulse of 73, afebrile. Chest: Clear to auscultation. Heart: S1, S2. Systolic murmur. Abdomen: Soft, nontender. Extremities: Right below-knee amputation. Laboratory Data: H and H 9.7/30.1. Sodium 135, potassium 4.1, bicarb 29, BUN 32, creatinine 5.1, calcium 9.1, phosphorus 4.1. Current Medications: The patient on include, 1. Aspirin. 2. Ceftriaxone. 3. Midodrine. 4. Epogen. 5. Calcium carbonate. 6. Atorvastatin. 7. Gabapentin. 8. Renvela. 9. Hydrocodone. 10. Calcitriol. Assessment And Plan: 1. End-stage renal disease. We will continue the patient on dialysis Thursday, Thursday, Thursday. The patient is scheduled for dialysis today. 2. Anemia of chronic kidney disease. Continue LINWOOD. Follow up with GI and bleeding scan. 3. Hypertension, controlled, optimal, continue current medication. 4. Diabetes, as by primary. Time spent discussing with the patient, [id number], using the translation, discussing with the staff and placing an order, discussing with over subspecialty and hospitalist 45 minutes. DEBBIE Voice ID: [id number] Report ID: [id number] MTDD
[2020-08-23] MEDS: HYDROMORPHONE HCL 1 MG/ML INJ IV PRN (05:25)
[2020-08-23 05:40] LABS: Albumin 2.2 g/dL (3.4-5.0); Phosphorus 2.8 mg/dL (2.5-4.9)
[2020-08-23 06:21] LABS: Absolute Lymphocytes (CBC) 1.4 K/uL (0.7-4.9); Basophils % 0.6 % (0-1.3); Hematocrit 31.2 % (36.0-45.0); Lymphocytes % 12.4 % (15.3-44.8); MPV 7.5 fL (7.6-11.3)
[2020-08-23] MEDS: INSULIN -REGULAR HUMAN 50 UNIT/0.5 ML ML SQ SCH ×4 (07:30→20:33)
[2020-08-23 08:29] LABS: Blood Morphology Comment NOT SEEN (NOT SEEN); Platelet Estimate INCR
[2020-08-23] MEDS: PSYLLIUM 1 PKT PO SCH ×2 (09:00→20:32)
[2020-08-23] MEDS: POLYETHYL GLY 3350 17 GM/DOSE PO SCH (09:04)
[2020-08-23] MEDS: ASPIRIN 81 MG CHEWABLE TABLET PO SCH (09:04)
[2020-08-23] MEDS: SEVELAMER CARBONATE 800 MG TABLET PO SCH ×2 (09:04→11:39)
[2020-08-23] MEDS: FOLIC ACID 1 MG TABLET PO SCH (09:04)
[2020-08-23] MEDS: DOCUSATE NA 100 MG CAP PO SCH ×2 (09:04→20:32)
[2020-08-23] MEDS: CALCIUM CARBONATE CHEW 500MG TAB PO SCH ×3 (09:05→17:18)
[2020-08-23] MEDS: NEPRO SHAKE 237 ML CAN PO SCH ×2 (09:06→20:33)
[2020-08-23] MEDS: HYDROCORTISONE ACETATE 25MG SUPP PR SCH (09:06)
[2020-08-23] MEDS ORDERED: FLEET ENEMA ADULT PR ONE (11:20)
[2020-08-23] MEDS: CEFTRIAXONE/SWI 1gm 1 GM/10 ML SYR IV SCH (11:39)
--- NOTE | 2020-08-23 13:06 | PN ---
Date of Progress Note: 08/23/2020 Subjective: This patient was admitted with GI bleed, infected foot. The patient status post transfusion, feeling well. Objective: Vital Signs: Blood pressure 144/65, pulse of 72, afebrile. Chest: Clear to auscultation. Heart: S1 and S2. Systolic murmur. Abdomen: Soft, nontender. Extremities: Right below-knee amputation. Neurologic: Alert and oriented x3. Current Medications: The patient on include aspirin, ceftriaxone, midodrine, Epogen, calcium carbonate, atorvastatin, gabapentin, Renvela, folic acid Assessment/plan: 1. End-stage renal disease. I am going to continue the patient on dialysis Thursday, Thursday, Thursday. 2. Anemia of chronic kidney disease, status post transfusion. Bleeding scan was negative. We will follow up with the primary. 3. Colitis with stool impaction. Discussed with the primary. If there is a plan to do CT with contrast to do it before dialysis tomorrow. Continue current treatment. We will try enema. 4. Secondary hyperparathyroidism. Continue current binder. Giving the stool impaction for the time being, I am going to go ahead and discontinue Renvela to avoid any further constipation. 5. Diabetes. As primary. Time spent discussing with the patient, [id number], using the translation, discussing with the staff and placing an order, discussing with over subspecialty and hospitalist 45 minutes. DEBBIE Voice ID: [id number] Report ID: [id number]
[2020-08-23] MEDS ORDERED: MAGNESIUM CITRATE 300 ML BOT PO SCH (15:00)
--- NOTE | 2020-08-23 16:09 | P.PN ---
Subjective Date of Service: 08/23/20 Chief Complaint: Foot pain Subjective: No new changes (received enema this morning and had 2 hard bowel movements, felt some relief afterwards but still feels like she needs to have a BM. continues with phantom limb pain) Review of Systems 10-point ROS is otherwise unremarkable Physical Examination - Vital Signs Temperature: 97.8 F Blood Pressure: 134/65 Pulse: 76 Respirations: 16 Pulse Ox (%): 98 - Physical Exam General: Alert, In no apparent distress, Oriented x3 Respiratory: Clear to auscultation bilaterally Cardiovascular: Regular rate/rhythm Gastrointestinal: Soft and benign, Non-distended, Tenderness (mild suprapubic) Integumentary: Pressure ulcer (excoriated skin on b/l buttocks), Other (RLE BKA site without signs of infection) Neurological: Normal speech Assessment & Plan Physician Review Additional Text: Gangrene of right foot now s/p BKA Rectal bleed History of CVA (cerebrovascular accident) Peripheral vascular disease Diabetes mellitus type II, uncontrolled ESRD (end stage renal disease) History of CVA (cerebrovascular accident) Sepsis Rectal bleed - likely from stercoral ulcer/colitis Hgb stable, monitor daily continue bowel regimen - miralax, colace, enema bleeding scan negative, repeat CT with stercoral colitis, significant stool load, similar to CT on admission continues with mild bleed / blood clots passing with hard stool slowly passing small bits of hard stool monitor h/h daily, if bleeding increases, may need to be transferred for GI service discussed with family, with ongoing pain, PT/OT, bleeding, could benefit from LTAC, they are in agreement, will discuss with [facility] S/P BKA 08/16/2020 General surgery is following for wound care. Blood cultures grew Klebsiella pneumonia. Repeat blood cultures negative. ID consulted - continue IV rocephin while inpatient, can consider PO doxy on di scharge for total 14d since amputation improved diet today continue insulin sliding scale Routine hemodialysis per nephrology. Decubitus ulcer precautions-frequent turning. Frequent cleaning and dry sacral area. Patient is currently on air-bed mattress Dispo: for possible LTAC placement Time Spent Managing Pts Care (In Minutes): 35
[2020-08-23] MEDS: TOUJEO MAX SQ SCH (20:29)
[2020-08-23] MEDS: ATORVASTATIN 20 MG TAB PO SCH (20:32)
[2020-08-23] MEDS: metroNIDAZOLE 500 MG TABLET PO SCH (22:43)
[2020-08-24] MEDS: HYDROCODONE/APAP 5/325 MG TAB PO PRN ×2 (04:32→18:59)
[2020-08-24] MEDS: metroNIDAZOLE 500 MG TABLET PO SCH ×2 (05:28→15:54)
[2020-08-24 06:14] LABS: MPV 7.2 fL (7.6-11.3)
[2020-08-24 06:28] LABS: Albumin 2.2 g/dL (3.4-5.0); Potassium 3.6 mmol/L (3.5-5.1)
[2020-08-24] MEDS: INSULIN -REGULAR HUMAN 50 UNIT/0.5 ML ML SQ SCH ×3 (07:30→16:30)
[2020-08-24] MEDS: CALCIUM CARBONATE CHEW 500MG TAB PO SCH ×3 (08:00→17:21)
[2020-08-24] MEDS: NEPRO SHAKE 237 ML CAN PO SCH (09:00)
[2020-08-24] MEDS: POLYETHYL GLY 3350 17 GM/DOSE PO SCH (09:00)
[2020-08-24] MEDS: PSYLLIUM 1 PKT PO SCH (09:00)
[2020-08-24] MEDS: HYDROCORTISONE ACETATE 25MG SUPP PR SCH (09:00)
[2020-08-24] MEDS: FOLIC ACID 1 MG TABLET PO SCH (09:00)
[2020-08-24] MEDS: ASPIRIN 81 MG CHEWABLE TABLET PO SCH (09:00)
[2020-08-24 10:38] VITALS: BP 153/67; TEMP 97.8
[2020-08-24] MEDS: EPOETIN ALFA 10,000 UNIT/ML VIAL IV SCH (13:34)
[2020-08-24] MEDS: CALCITROL 0.25 MCG CAP PO SCH (15:54)
[2020-08-24] MEDS: DOCUSATE NA 100 MG CAP PO SCH (15:54)
[2020-08-24] MEDS: CEFTRIAXONE/SWI 1gm 1 GM/10 ML SYR IV SCH (15:55)
--- NOTE | 2020-08-24 17:01 | RAD REPORT ---
EXAM DESCRIPTION: RAD - Abdomen 1 View (KUB) - 08/24/2020 4:02 pm CLINICAL HISTORY: constipation, large stool burden COMPARISON: Abdomen 1 View (KUB) dated 05/02/2020; Abdomen Pelvis Wo Contrast dated 08/22/2020 FINDINGS: Bowel gas pattern is non-specific. Air is seen throughout nondilated large and small della l. No free air or pneumatosis. Cholecystectomy clips are present. Numerous calcified fibroids are pre sent in the mid pelvis. Moderate stool volume is present in the rectum. Rectal stool volume has diminished significantly sinc e the August [address] CT study. Overall no abnormal stool volume. IMPRESSION: Moderate but reduced volume of stool in the rectum. Patient has little remnant stool els ewhere in the colon. No obstruction, free air or emergent finding.
[2020-08-24] MEDS: GABAPENTIN 100 MG CAP PO SCH (17:21)
[2020-08-24 17:41] VITALS: O2SAT 96
--- NOTE | 2020-08-24 20:37 | P.DS ---
Admission Date: 08/15/20 Discharge Date: 08/24/20 Disposition: [facility] Discharge Condition: FAIR Reason for Admission: R foot gangrene Consultations: Podiatry - Luc General Surgery - Jing Nephrology - Shyann Beckman - Steve Procedures: CT Abd (08/15): Significant fecal retention rectosigmoid colon with surrounding inflammation in the presacral fat suggests stercoral colitis. CT Foot (08/15): Large amount of soft tissue gas is present in the foot as detailed with intraosseous gas also noted. The degree of gas formation is greater than typically seen from postoperative status and is very suspicious for infection with a gas-forming organism. CT Head (08/15): No acute intracranial abnormality. Surgery (08/16): R BKA for R foot gas gangrene- Dr. Ch GI Bleed Scan (08/22): Imaging shows normal liver and spleen activity along with normal activity in the great vessels. There is no abnormal activity seen to indicate an active GI bleed. CT Abd/pel (08/22): Large stool volume distending the rectum to 6.6 cm with edematous stranding in the presacral fatty tissues and along the lateral sides of the rectum. This stercoral colitis pattern is similar to July KUB X-ray (08/24): Moderate but reduced volume of stool in the rectum. Patient has little remnant stool elsewhere in the colon. No obstruction, free air or emergent finding. 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 Hospital Course: Patient was admitted, treated with empiric antibiotics. Podiatry was consulted and recommended [facility] surgery evaluation for amputation. General Surgery performed R BKA on (08/16). Hospitalization was complicated with rectal bleeding. Patient had reported recent history (in the past ~1 month) of BRBPR and reported was receiving treatment for hemorrhoids. However family did not corroborate with patient's story. A bleeding scan and CT abd/pelvis were performed and were negative / consistent with moderate-severe stool burden and concern for stercoral colitis, similar to CT Abd/pelvis on admission. Patient was given aggressive stool regimen with stool softener and multiple enemas with eventual improvement which then lead to decreased bleeding. Her hgb was monitored and stable throughout her hospitalization. She was discharged to LTAC due to continued antibiotics (per ID recommendation), hemodialysis, wound care (sacral decubitus and BKA), and further observation of continued rectal bleeding. Blood and R foot cultures grew Klebsiella pneumoniae. Repeat blood cultures on 08/17 were negative. ID recommended 14 days of antibiotics since negative blood culture. Vital Signs/Physical Exam: Temp Pulse Resp BP Pulse Ox 97.8 F 68 18 153/67 H 98 08/24/20 08:00 08/24/20 08:00 08/24/20 18:59 08/24/20 08:00 08/24/20 18:59 General: Alert, In no apparent distress HEENT: Other (blind, wearing sunglasses) Respiratory: Clear to auscultation bilaterally, Normal air movement Cardiovascular: No edema, Regular rate/rhythm Gastrointestinal: Soft and benign, Non-distended, No tenderness Integumentary: Other (s/p R BKA, surgical site: no infectious signs) Neurological: Normal speech, Normal affect Laboratory Data at Discharge: WBC 10.5 K/uL (4.3-10.9) 08/24/20 06:01 Hgb 9.9 g/dL (12.0-15.0) L 08/24/20 06:01 Hct 30.0 % (36.0-45.0) L 08/24/20 06:01 Plt Count 523 K/uL (152-406) H 08/24/20 06:01 PT 12.6 SECONDS (9.5-12.5) H 08/15/20 21:36 INR 1.07 08/15/20 21:36 APTT 27.7 SECONDS (24.3-36.9) 08/15/20 21:36 Sodium 136 mmol/L (136-145) 08/24/20 06:01 Potassium 3.6 mmol/L (3.5-5.1) 08/24/20 06:01 BUN 23 mg/dL (7-18) H 08/24/20 06:01 Creatinine 4.90 mg/dL (0.55-1.3) H D 08/24/20 06:01 Glucose 157 mg/dL (74-106) H 08/24/20 06:01 Phosphorus 4.0 mg/dL (2.5-4.9) 08/24/20 06:01 Magnesium 2.1 mg/dL (1.8-2.4) 08/21/20 05:14 Total Bilirubin 0.5 mg/dL (0.2-1.0) 08/16/20 06:25 AST 29 U/L (15-37) 08/16/20 06:25 ALT 13 U/L (12-78) 08/16/20 06:25 Alkaline Phosphatase 460 U/L (45-117) H 08/16/20 06:25 Home Medications: Aspirin 81 mg PO DAILY 12/23/19 Gabapentin 100 mg PO M,W,F 12/23/19 Sertraline [Zoloft*] 100 mg PO DAILY 12/23/19 Clopidogrel Bisulfate [Plavix*] 75 mg PO DAILY #30 tablet 12/26/19 Folic Acid 1 mg PO DAILY #30 tablet 12/26/19 Atorvastatin Calcium [Lipitor] 20 mg PO BEDTIME 02/09/20 Furosemide [Lasix*] 40 mg PO BID 06/26/20 Hydroxyzine HCl [Atarax] 10 mg PO TID PRN 06/26/20 Insulin Glargine,Hum.rec.anlog [Toujeo Max Solostar] 20 unit SQ BEDTIME 06/26/20 Insulin Lispro [Humalog] 25 unit SQ TID 06/26/20 Sevelamer Carbonate [Renvela*] 800 mg PO TIDWM 06/26/20 Tramadol HCl [Ultram] 50 mg PO DAILY PRN 06/26/20 Zinc Oxide/Menthol/Calamine [Lantiseptic Multi-Purpose Oint] 113 gm TP DAILY PRN 06/26/20 Calcitrol [Rocaltrol*] 0.25 mcg PO Q48H #30 cap 08/03/20 levoFLOXacin [Levaquin] 500 mg PO AFTER EACH DIALYSIS #15 tab 08/03/20 Followup: Ana Kendall NP [Primary Care Provider] - Cesario Ch MD [ACTIVE - CAN ADMIT] - 1-2 Weeks ([facility] in my clinic) Time spent managing pt's care (in minutes): 45
== END 2020-08-24 19:09 | DRG 853 ==
LOC: ER 15:09 → ERHOLD 20:10 → 2ND 23:08
PROVIDERS: ADMIT Family Medicine; ATTEND Hospitalist
PROC: 5A1D70Z Performance of Urinary Filtration, Intermittent, Less than 6 Hours Per Day (ICD-10-PCS; 2020-08-16)
PROC: 0Y6H0Z1 Detachment at Right Lower Leg, High, Open Approach (ICD-10-PCS; principal; 2020-08-16 11:00)
DX: A41.9 Sepsis, unspecified organism (principal); N18.6 End stage renal disease; E43 Unspecified severe protein-calorie malnutrition; A48.0 Gas gangrene; E11.52 Type 2 diabetes mellitus with diabetic peripheral angiopathy with gangrene; M86.8X7 Other osteomyelitis, ankle and foot; I12.0 Hypertensive chronic kidney disease with stage 5 chronic kidney disease or end stage renal disease; N17.9 Acute kidney failure, unspecified; L03.115 Cellulitis of right lower limb; N25.81 Secondary hyperparathyroidism of renal origin; K62.5 Hemorrhage of anus and rectum; E11.69 Type 2 diabetes mellitus with other specified complication; E11.22 Type 2 diabetes mellitus with diabetic chronic kidney disease; E11.40 Type 2 diabetes mellitus with diabetic neuropathy, unspecified; E11.319 Type 2 diabetes mellitus with unspecified diabetic retinopathy without macular edema; E11.621 Type 2 diabetes mellitus with foot ulcer; L97.519 Non-pressure chronic ulcer of other part of right foot with unspecified severity; H54.8 Legal blindness, as defined in USA; E78.5 Hyperlipidemia, unspecified; E87.5 Hyperkalemia; K59.00 Constipation, unspecified; E11.51 Type 2 diabetes mellitus with diabetic peripheral angiopathy without gangrene; K21.9 Gastro-esophageal reflux disease without esophagitis; E11.65 Type 2 diabetes mellitus with hyperglycemia; D63.1 Anemia in chronic kidney disease; K52.9 Noninfective gastroenteritis and colitis, unspecified; N25.0 Renal osteodystrophy; E87.70 Fluid overload, unspecified; L89.329 Pressure ulcer of left buttock, unspecified stage; L89.319 Pressure ulcer of right buttock, unspecified stage; Z90.49 Acquired absence of other specified parts of digestive tract; B96.1 Klebsiella pneumoniae [K. pneumoniae] as the cause of diseases classified elsewhere; Z79.82 Long term (current) use of aspirin; Z99.2 Dependence on renal dialysis; Z89.411 Acquired absence of right great toe; Z68.23 Body mass index [BMI] 23.0-23.9, adult; Z87.891 Personal history of nicotine dependence; Z79.02 Long term (current) use of antithrombotics/antiplatelets; Z86.73 Personal history of transient ischemic attack (TIA), and cerebral infarction without residual deficits; Z85.850 Personal history of malignant neoplasm of thyroid; Z79.4 Long term (current) use of insulin; Z20.822 Contact with and (suspected) exposure to COVID-19
CPT/HCPCS: 36415; 51702; 70450; 73700; 74018; 74176; 76377; 78278; 80048; 80053; 80069; 80076; 80202; 81003; 82550; 82947; 83605; 83735; 84145; 85014; 85018; 85025; 85027; 85610; 85730; 86704; 86706; 86803; 87040; 87070; 87077; 87186; 87205; 87340; 88307; 88311; 90935; 93005; 94760; 96365; 96375; 97110; 97161; 97530; 99285; A9560; J0696; J1100; J1170; J1644; J2370; J2405; J2543; J2704; J3010; J3370; J7030; J7040; J7050; P9047; Q5105; U0003

== ENCOUNTER 2021-05-08 09:53 | Observation (INO) | payer OTHER ==
[2021-05-08 10:15] LABS: Absolute Lymphocytes (CBC) 2.1 K/uL (0.7-4.9); Basophils % 0.8 % (0-1.3); Hematocrit 40.9 % (36.0-45.0); Lymphocytes % 29.7 % (15.3-44.8); MPV 7.9 fL (7.6-11.3); RBC Red Blood Cell Count 4.05 M/uL (3.86-4.86)
[2021-05-08 12:40] LABS: Potassium 7.4 mmol/L (3.5-5.1)
--- NOTE | 2021-05-08 13:15 | ER ---
Nurse's Notes [facility] Name: Archana Woo Age: 45 yrs Sex: Female : 1975 Arrival Date: 05/08/2021 Time: 09:55 Bed 19 Private MD: Diagnosis: Hyperkalemia;Chronic kidney disease, unspecified Presentation: 05/08 09:56 Chief complaint: Patient states: Had high potassium with blood draw before dialysis ll1 today. Sent in for eval. No complaints at this time. Coronavirus screen: Vaccine status: Patient reports receiving the 2nd dose of the covid vaccine. Client denies travel out of the [place] in the last 14 days. At this time, the client does not indicate any symptoms associated with coronavirus-19. Ebola Screen: Patient denies travel to an Ebola-affected area in the 21 days before illness onset. Initial Sepsis Screen: Does the patient meet any 2 criteria? HR > 90 bpm. No. Patient's initial sepsis screen is negative. Does the patient have a suspected source of infection? No. Patient's initial sepsis screen is negative. Risk Assessment: Do you want to hurt yourself or someone else? Patient reports no desire to harm self or others. Onset of symptoms is unknown. 09:56 Method Of Arrival: EMS: [facility] ll1 09:56 Acuity: TARUN 3 ll1 Triage Assessment: 10:12 General: Appears in no apparent distress. Behavior is calm, cooperative, appropriate ll1 for age. Pain: Denies pain. Neuro: No deficits noted. Cardiovascular: Heart tones S1 S2 Capillary refill < 3 seconds Clubbing of nail beds is absent Patient's skin is warm and dry. Rhythm is regular. Respiratory: Reports shortness of breath at rest Airway is patent Trachea midline Respiratory effort is even, unlabored, Respiratory pattern is regular, symmetrical. : dialysis patient. M,W,F dialysis. Last dialysis Thursday. INSPECTOR PUBLICATIONS: 10:13 LMP N/A - control method ll1 Historical: - Allergies: 09:56 No Known Allergies; ll1 - PMHx: 09:56 left arm paralysis; Hypertension; Hyperlipidemia; GERD; dialysis W \T\ F; DIALYSIS MWF; ll1 Diabetes - NIDDM; Depression; CVA; BLIND; neuropathy; THYROID CANCER; TIA; - Immunization history:: Client reports receiving the 2nd dose of the Covid vaccine, Flu vaccine status is unknown. - Social history:: Smoking status: Patient denies any tobacco usage or history of. Screenin:58 Abuse screen: Denies threats or abuse. Nutritional screening: No deficits noted. ll1 Tuberculosis screening: No symptoms or risk factors identified. Fall Risk IV access (20 points). Ambulatory Aid- Crutches/Cane/Walker (15 pts). Gait- Impaired (20 pts.). Total Lr Fall Scale indicates High Risk Score (45 or more points). Fall prevention measures have been instituted. Side Rails Up X 2 Frequent Obs/Assessments Occuring As available patient and family educated on Fall Prevention Program and Strategies. Assessment: 11:10 Reassessment: No changes from previously documented assessment. Patient and/or family ch5 updated on plan of care and expected duration. Pain level reassessed. Patient is alert, oriented x 3, equal unlabored respirations, skin warm/dry/pink. eating lunch. 12:10 Reassessment: No changes from previously documented assessment. Patient and/or family ch5 updated on plan of care and expected duration. Pain level reassessed. Patient is alert, oriented x 3, equal unlabored respirations, skin warm/dry/pink. 18:01 Reassessment: Received report from dialysis nurse. Pt had 1 L removed. Pt B/P was kg dropping but is now stable. . Vital Signs: 09:56 BP 164 / 71; Pulse 100; Resp 12; Temp 97.9; Weight 58.97 kg; Height 5 ft. 4 in. (162.56 ll1 cm); Pain 0/10; 13:30 BP 173 / 60; Pulse 91; Resp 20; Pulse Ox 96% on R/A; kg 09:56 Body Mass Index 22.31 (58.97 kg, 162.56 cm) ll1 ED Course: 09:55 Patient arrived in ED. ll1 09:55 Sanjay Mejia PA is PHCP. jr8 09:55 Everett Phillips MD is Attending Physician. jr8 09:56 Arm band placed on Patient placed in an exam room, on a stretcher. ll1 09:58 Triage completed. ll1 09:58 Patient has correct armband on for positive identification. Bed in low position. Call ll1 light in reach. Side rails up X 1. quality assurance monitor on. Pulse ox on. NIBP on. 10:12 EKG completed in triage. Results shown to MD. ll1 10:15 Kylie Feldman, RN is Primary Nurse. ll1 12:27 Report given to Matt Hadley RN. ch5 13:30 No provider procedures requiring assistance completed. kg 13:52 Everett Chan MD is Hospitalizing Provider. jr8 22:06 CORONAVIRUS Sent. ms4 Administered Medications: 12:58 Not Given (Physician Discretion): Insulin Regular Human 10 units IVP once jr8 13:29 Drug: D50W 50 ml Route: IVP; Site: right hand; kg 13:29 Drug: Insulin Regular Human 5 units {Co-Signature: elva (Karthikeyan Vazquez RN).} Route: kg IVP; Site: right hand; 13:30 Drug: Albuterol 2.5 mg Route: Inhalation; kg Outcome: 13:15 Discharge ordered by MD. jr8 13:53 Decision to Hospitalize by Provider. jr8 05/09 00:38 Patient left the ED. ms4 Signatures: Sanjay Mejia PA PA jr8 Kylie Feldman, RN RN ll1 Barbra Hadley RN RN kg Rosetta Dominguez RN RN ms4 Karthikeyan Vazquez RN RN ch5 Karthikeyan Vazquez RN ch5
--- NOTE | 2021-05-08 13:15 | EDPHYS ---
Physician Documentation [facility] Name: Archana Woo Age: 45 yrs Sex: Female : 1975 Arrival Date: 05/08/2021 Time: 09:55 Bed 19 Private MD: ED Physician Everett Phillips HPI: 05/08 10:26 This 45 yrs old Female presents to ER via EMS with complaints of Abnormal Lab jr8 Results. 10:26 Is a 45-year-old female that presented to emergency room via EMS after having her labs jr8 checked this morning prior to dialysis. Stated that her potassium was 8.4. Patient asymptomatic at this time. Nephrology was consulted by alf and wanted her sent for further check and reevaluation. Severity of symptoms: At their worst the symptoms were very mild. It is unknown whether or not the patient has had similar symptoms in the past. The patient has been recently seen by a physician:. ENGINEERING COORDINATOR: 10:13 LMP N/A - control method ll1 Historical: - Allergies: 09:56 No Known Allergies; ll1 - PMHx: 09:56 left arm paralysis; Hypertension; Hyperlipidemia; GERD; dialysis W \\T\\ F; DIALYSIS MWF; ll1 Diabetes - NIDDM; Depression; CVA; BLIND; neuropathy; THYROID CANCER; TIA; - Immunization history:: Client reports receiving the 2nd dose of the Covid vaccine, Flu vaccine status is unknown. - Social history:: Smoking status: Patient denies any tobacco usage or history of. ROS: 10:26 Eyes: Negative for injury, pain, redness, and discharge, ENT: Negative for injury, jr8 pain, and discharge, Neck: Negative for injury, pain, and swelling, Cardiovascular: Negative for chest pain, palpitations, and edema, Respiratory: Negative for shortness of breath, cough, wheezing, and pleuritic chest pain, Abdomen/GI: Negative for abdominal pain, nausea, vomiting, diarrhea, and constipation, Back: Negative for injury and pain, MS/Extremity: Negative for injury and deformity, Skin: Negative for injury, rash, and discoloration, Neuro: Negative for headache, weakness, numbness, tingling, and seizure. Exam: 10:26 Constitutional: This is a well developed, well nourished patient who is awake, alert, jr8 and in no acute distress. ENT: Nares patent. No nasal discharge, no septal abnormalities noted. Tympanic membranes are normal and external auditory canals are clear. Oropharynx with no redness, swelling, or masses, exudates, or evidence of obstruction, uvula midline. Mucous membranes moist. Cardiovascular: Regular rate and rhythm with a normal S1 and S2. No gallops, murmurs, or rubs. Normal PMI, no JVD. No pulse deficits. Respiratory: Lungs have equal breath sounds bilaterally, clear to auscultation and percussion. No rales, rhonchi or wheezes noted. No increased work of breathing, no retractions or nasal flaring. Abdomen/GI: Soft, non-tender, with normal bowel sounds. No distension or tympany. No guarding or rebound. No evidence of tenderness throughout. Skin: Warm, dry with normal turgor. Normal color with no rashes, no lesions, and no evidence of cellulitis. MS/ Extremity: Pulses equal, no cyanosis. Neurovascular intact. Full, normal range of motion. Neuro: Awake and alert, GCS 15, oriented to person, place, time, and situation. Motor strength 5/5 in all extremities. Sensory grossly intact. Vital Signs: 09:56 BP 164 / 71; Pulse 100; Resp 12; Temp 97.9; Weight 58.97 kg; Height 5 ft. 4 in. (162.56 ll1 cm); Pain 0/10; 13:30 BP 173 / 60; Pulse 91; Resp 20; Pulse Ox 96% on R/A; kg 09:56 Body Mass Index 22.31 (58.97 kg, 162.56 cm) ll1 MDM: 09:55 Patient medically screened. jr8 13:13 Data reviewed: vital signs, nurses notes, lab test result(s), EKG, and as a result, I 8 will discharge patient. Data interpreted: Pulse oximetry: on room air is 98 %. Interpretation: normal. Counseling: I had a detailed discussion with the patient and/or guardian regarding: the historical points, exam findings, and any diagnostic results supporting the discharge/admit diagnosis, lab results, the need for outpatient follow up, a family practitioner, to return to the emergency department if symptoms worsen or persist or if there are any questions or concerns that arise at home. ED course: Patient ended up having a potassium of 7.4. We initialized treatment to reduce potassium here. Called her surgical supply assistant who said that they could work her in emergently for dialysis at [facility] today. Patient will be discharged at this time and will be sent to dialysis for emergent dialysis. Patient otherwise hemodynamically stable and asymptomatic. No EKG changes at this time.. 13:34 ED course: Ajith cannot transfer patient to [facility] dialysis unfortunately. Patient gigi will be dialyzed here and then will have a potassium recheck and sent home from the emergency room.. 05/08 09:56 Order name: CBC with Diff; Complete Time: 10:39 [facility] 05/08 09:56 Order name: Basic Metabolic Panel; Complete Time: 12:44 [facility] 05/08 13:11 Order name: Urine --Ancillary (enter results); Complete Time: 13:23 05/08 16:36 Order name: T4 Free [facility] 05/08 16:36 Order name: Thyroid Stimulating Hormone [facility] 05/08 16:36 Order name: Troponin I [facility] 05/08 16:36 Order name: Urinalysis [facility] 05/08 16:36 Order name: Basic Metabolic Panel [facility] 05/08 16:36 Order name: Basic Metabolic Panel [facility] 05/08 16:36 Order name: CBC with Automated Diff [facility] 05/08 16:36 Order name: CBC with Automated Diff [facility] 05/08 16:36 Order name: Lipid Profile [facility] 05/08 16:36 Order name: Lipid Profile [facility] 05/08 19:06 Order name: Glucose, Ancillary Testing [facility] 05/08 09:56 Order name: IV; Complete Time: 10:00 [facility] 05/08 09:56 Order name: EKG - Nurse/Tech; Complete Time: 10:12 [facility] 05/08 09:56 Order name: EKG; Complete Time: 09:57 [facility] 05/08 16:36 Order name: 60g Consistent Carbohydrate (ADA 1800/2000) [facility] 05/08 20:38 Order name: COVID-19 : Document "Date of Symptom Onset" if Symptomatic. ms4 05/08 20:48 Order name: CORONAVIRUS [facility] 05/08 21:09 Order name: Glucose, Ancillary Testing [facility] 05/08 22:00 Order name: SARS-COV-2 RT PCR [facility] 05/08 23:05 Order name: Basic Metabolic Panel [facility] 05/08 23:05 Order name: Troponin I [facility] 05/08 23:05 Order name: T4 Free [facility] 05/08 23:05 Order name: Thyroid Stimulating Hormone [facility] 05/08 10:26 Order name: Labs - recollect needed: recollect c7; Complete Time: 12:03 bd 05/08 11:02 Order name: Labs - recollect needed: recollect c7 again.; Complete Time: 12:03 bd Administered Medications: 12:58 Not Given (Physician Discretion): Insulin Regular Human 10 units IVP once jr8 13:29 Drug: D50W 50 ml Route: IVP; Site: right hand; kg 13:29 Drug: Insulin Regular Human 5 units {Co-Signature: ch5 (Karthikeyan Vazquez RN).} Route: kg IVP; Site: right hand; 13:30 Drug: Albuterol 2.5 mg Route: Inhalation; kg Disposition Summary: 05/08/21 13:53 Hospitalization Ordered Hospitalization Status: Observation jr Provider: Everett Chan Location: Telemetry/MedSurg (observation)(05/08/21 13:53) jr8 Condition: Stable(05/08/21 13:53) jr8 Problem: new(05/08/21 13:53) jr8 Symptoms: are unchanged(05/08/21 13:53) jr8 Bed/Room Type: Standard [facility] Room Assignment: 203(05/09/21 00:14) tl1 Diagnosis - Hyperkalemia(05/08/21 13:53) jr8 - Chronic kidney disease, unspecified(05/08/21 13:53) [facility] Forms: - Medication Reconciliation Form jr8 - SBAR form jr8 Addendum: 05/11/2021 07:17 Co-signature as Attending Physician, Everett Phillips MD PA/INSURANCE SALES REPRESENTATIVE's history reviewed, m a2 patient interviewed, and examined. I agree with assessment and care plan and confirm the diagnosis (es) above. Signatures: Dispatcher [employer] [facility] Jil Baird Josh, PA PA jr8 Edelmira Chang RN RN tl1 Everett Phillpis MD MD ma2 Kylie Feldman RN RN ll1 Barbra Hadley RN RN kg Karthikeyan Vazquez RN ch5 Corrections: (The following items were deleted from the chart) 05/08 13:33 13:15 Other jr8 jr8 13:33 13:15 new jr8 jr8 : 13:15 are unchanged jr8 jr8 : 13:15 Stable jr8 jr8 : 13:15 Hyperkalemia jr8 jr8 : 13:15 Chronic kidney disease, unspecified jr8 jr8 05/09 00:14 05/08 13:53 jr8 tl1
[2021-05-08 13:23] LABS: Urine Specific Gravity/Preg 1.025 (1.005-1.030)
[2021-05-08] MEDS ORDERED: ALBUTEROL 2.5 MG/3 ML NEB SOL ONE (13:36)
[2021-05-08] MEDS ORDERED: D50W 25 GM/50 ML SYRINGE IV ONE (13:36)
[2021-05-08] MEDS ORDERED: INSULIN -REGULAR HUMAN 50 UNIT/0.5 ML ML ONE ×3 (13:36→21:27)
[2021-05-08] MEDS ORDERED: ACETAMINOPHEN 500 MG TAB PO PRN (16:34)
[2021-05-08] MEDS: INSULIN -REGULAR HUMAN 50 UNIT/0.5 ML ML SQ SCH ×2 (16:34→20:58)
[2021-05-08] MEDS ORDERED: ONDANSETRON 4 MG/2 ML VIAL IV PRN (16:34)
[2021-05-08] MEDS ORDERED: MENTHOL TOP PRN (16:35)
[2021-05-08] MEDS ORDERED: CALAMINE TOP PRN (16:35)
[2021-05-08] MEDS ORDERED: ZINC OXIDE TOP PRN (16:35)
[2021-05-08] MEDS ORDERED: [UNRECOGNIZED DRUG - OTHER] TOP PRN (16:35)
[2021-05-08] MEDS ORDERED: HOME MED 1 EA UNK (Hydroxyzine Hcl [Atarax] 10 MG Tablet) PO PRN ×2 (16:35→16:49)
[2021-05-08] MEDS ORDERED: TRAMADOL HCL 50 MG TAB PO PRN (16:35)
--- NOTE | 2021-05-08 16:38 | P.HP ---
Certification for Inpatient Patient admitted to: Inpatient With expected LOS: >2 Midnights Patient will require the following post-hospital care: None Practitioner: I am a practitioner with admitting privileges, knowledge of patient current condition, hospital course, and medical plan of care. Services: Services provided to patient in accordance with Admission requirements found in Title 42 Section 412.3 of the Code of Federal Regulations Patient History Date of Service: 05/09/21 Reason for admission: Hyperkalemia History of Present Illness: Patient is a 45-year-old female with a past medical history significant for ESRD, HLD, GERD, DM 2, depression, CVA, blindness who presents with complaint of abnormal labs. Patient is a resident of a halfway. Patient is on MWF dialysis schedule. Patient reported that her labs were checked and potassium was noted to be 8.4.. skilled nursing informed account adjuster who advised that patient be sent to the hospital for further management. No other signs or symptoms reported. Symptoms are aggravated or relieved by nothing. Patient was brought to the hospital for medical evaluation. Allergies No Known Allergies Allergy (Verified 05/09/21 01:12) Home medications list reviewed: No Home Medications: RX: Aspirin 81 mg PO DAILY 12/23/19 RX: Atorvastatin Calcium [Lipitor] 20 mg PO BEDTIME 02/09/20 - Past Medical/Surgical History Diabetic: Yes -: ESRD -: HPN -: Thyroid cancer -: Neuropathy -: Blind both eyes -: DM -: Neuropathy -: GERD -: ESRD -: hyperlipidemia -: CVA x3 -: Cholecystectomy -: Thyroidectomy -: Multiple eye surgeries -: -: HD graph left arm -: right great toe amputation Psychosocial/ Personal History: The patient is . She has 1 child. She is disabled. - Family History Father Notes: thyroid problems Brother -: Hypertension - Social History Smoking Status: Never smoker Alcohol use: No CD- Drugs: No Caffeine use: No Place of Residence: Alf Review of Systems General: Unremarkable Eyes: Unremarkable ENT: Unremarkable Respiratory: Unremarkable Cardiovascular: Unremarkable Gastrointestinal: Unremarkable Genitourinary: Unremarkable Musculoskeletal: Unremarkable Integumentary: Unremarkable Neurological: Unremarkable Lymphatics: Unremarkable Physical Examination - Physical Exam General: Alert, In no apparent distress, Oriented x3 HEENT: Atraumatic, PERRLA, Mucous membr. moist/pink, EOMI, Sclerae nonicteric Neck: Supple, 2+ carotid pulse no bruit, No LAD, Without JVD or thyroid abnormality Respiratory: Clear to auscultation bilaterally, Normal air movement Cardiovascular: Regular rate/rhythm, Normal S1 S2 Capillary refill: <2 Seconds Gastrointestinal: Normal bowel sounds, No tenderness Musculoskeletal: No tenderness Integumentary: No rashes Neurological: Normal gait, Normal speech, Normal tone, Normal affect Lymphatics: No axilla or inguinal lymphadenopathy External genitalia: Deferred Rectal: Deferred - Studies Laboratory Data (last 24 hrs) 05/08/21 12:10: Sodium 132 L, Potassium 7.4 H*, BUN 83 H, Creatinine 5.87 H*, Glucose 292 H 05/08/21 10:00: WBC 7.20, Hgb 13.6, Hct 40.9, Plt Count 231 Assessment and Plan - Plan --ESRD. Nephrology consulted. Patient on MWF schedule. We will await further recommendations. --Hyperkalemia. Dialysis is being planned. Continue supportive care. --HLD. Continue statin. --GERD. Continue home medication. --DM2. BS monitoring with sliding scale insulin. -- --Depression. Continue home medications. --Elevated BP Will manage with labetelol prn --R BKA. Continue supportive care --DVT prophylaxis with Heparin subQ I have had discussion about advanced directives with the patient during this hospital admission. Addressed code status and /or goals of care. Spent more than 15 minutes. Case discussed withpatient and nurse. The following document was completed using voice recognition software. This can produce harness brusher errors that can at times significantly distort words and phrases. Please interpret any aspect of the note that is nonsensical in light of this fact. Discharge Plan: Alf Plan to discharge in: 48 Hours - Advance Directives Does patient have a Living Will: No Does patient have a Durable POA for Healthcare: No - Code Status/Comfort Care Code Status Assessed: Yes Code Status: Full Code Critical Care: No
[2021-05-08] MEDS ORDERED: GABAPENTIN 100 MG CAP PO SCH (17:00)
[2021-05-08] MEDS: SEVELAMER CARBONATE 800 MG TABLET PO SCH (17:00)
[2021-05-08] MEDS: HEPARIN 5000 UNIT/ML 1 ML VIAL SQ SCH (20:56)
[2021-05-08] MEDS: FUROSEMIDE 40 MG TABLET PO SCH (20:57)
[2021-05-08] MEDS ORDERED: INSULIN GLARGINE 100 UNITS/ML SQ SCH (21:00)
[2021-05-08] MEDS ORDERED: ATORVASTATIN 20 MG TAB PO SCH (21:00)
[2021-05-08] MEDS ORDERED: HOME MED 1 EA UNK (Insulin Glargine,Hum.Rec.Anlog [Toujeo Max Solostar] 300 UNIT/ML Insuln SQ SCH (21:00)
[2021-05-08] MEDS ORDERED: HEPARIN 5000 UNIT/ML 1 ML VIAL ONE (21:17)
[2021-05-08] MEDS ORDERED: INSULIN GLARGINE 100 UNITS/ML SQ ONE (21:18)
[2021-05-08] MEDS ORDERED: FUROSEMIDE 40 MG TABLET ONE (21:18)
[2021-05-08] MEDS ORDERED: ATORVASTATIN 20 MG TAB ONE (21:18)
[2021-05-08 23:02] LABS: BUN Blood Urea Nitrogen 31 mg/dL (7-18); Bicarbonate 31 mmol/L (21-32); Glucose Level 274 mg/dL (74-106); Potassium 4.5 mmol/L (3.5-5.1); Sodium Level 138 mmol/L (136-145); Thyroid Stimulating Hormone 0.597 uIU/mL (0.360-3.740); Troponin I < 0.02 ng/mL (0.0-0.045)
[2021-05-09 01:04] VITALS: BMI 26.2
[2021-05-09] MEDS: D50W 25 GM/50 ML SYRINGE IV PRN ×2 (01:50→02:26)
[2021-05-09] MEDS ORDERED: LABETALOL 20 MG/4ML SYRINGE IV PRN (02:11)
[2021-05-09 04:56] LABS: Absolute Lymphocytes (CBC) 1.8 K/uL (0.7-4.9); Basophils % 0.7 % (0-1.3); Hematocrit 34.7 % (36.0-45.0); Lymphocytes % 23.9 % (15.3-44.8); MPV 7.6 fL (7.6-11.3); RBC Red Blood Cell Count 3.49 M/uL (3.86-4.86)
[2021-05-09 05:09] LABS: Potassium 5.1 mmol/L (3.5-5.1)
[2021-05-09] MEDS: INSULIN -REGULAR HUMAN 50 UNIT/0.5 ML ML SQ SCH ×2 (07:30→12:20)
[2021-05-09] MEDS ORDERED: CLOPIDOGREL 75 MG TABLET PO SCH (09:00)
[2021-05-09] MEDS ORDERED: ASPIRIN 81 MG CHEWABLE TABLET PO SCH (09:00)
[2021-05-09] MEDS ORDERED: SERTRALINE HCL 100 MG TAB PO SCH (09:00)
[2021-05-09] MEDS ORDERED: CALCITROL 0.25 MCG CAP PO SCH (09:00)
[2021-05-09] MEDS ORDERED: FOLIC ACID 1 MG TABLET PO SCH (09:00)
[2021-05-09] MEDS: SEVELAMER CARBONATE 800 MG TABLET PO SCH ×2 (09:04→12:20)
[2021-05-09] MEDS: HEPARIN 5000 UNIT/ML 1 ML VIAL SQ SCH (09:05)
[2021-05-09] MEDS: FUROSEMIDE 40 MG TABLET PO SCH (09:05)
[2021-05-09 09:18] VITALS: O2SAT 98
--- NOTE | 2021-05-09 10:37 | P.DS ---
Admission Date: 05/08/21 Discharge Date: 05/09/21 Disposition: TRANSFER TO [facility] Discharge Condition: FAIR Reason for Admission: Hyperkalemia Consultations: Nephrology - Problems (1) Hyperkalemia Current Visit: Yes Status: Acute (2) End-stage renal disease on hemodialysis Current Visit: No Status: Acute (3) History of CVA (cerebrovascular accident) Current Visit: No Status: Acute (4) Blind in both eyes Current Visit: No Status: Chronic (5) Diabetes mellitus Onset Date: 03/03/17 Current Visit: No Status: Chronic Brief History of Present Illness: 45-year-old female with a past medical history significant for ESRD, HLD, GERD, DM 2, depression, CVA, blindness who presents with complaint of hyperkalemia. Patient is a resident of a [facility] and on MWF dialysis schedule. Patient reported that her labs were checked and potassium was noted to be 8.4.. prison informed recreation professor who advised that patient be sent to the hospital for further management. No other signs or symptoms reported. Patient was admitted for further management of hyperkalemia. Hospital Course: She underwent hemodialysis which corrected hyperkalemia. She was asymptomatic during the hospital stay. Vital stable. Patient is deemed stable for discharge back to the [facility]. Vital Signs/Physical Exam: Temp Pulse Resp BP Pulse Ox 97.2 F 60 16 115/72 94 05/09/21 04:00 05/09/21 04:00 05/09/21 04:15 05/09/21 04:00 05/09/21 04:15 General: Alert, In no apparent distress, Oriented x3 HEENT: Mucous membr. moist/pink Neck: JVD not distended Respiratory: Clear to auscultation bilaterally, Normal air movement Cardiovascular: No edema, Regular rate/rhythm, Normal S1 S2 Gastrointestinal: Normal bowel sounds, Soft and benign, Non-distended, No tenderness Musculoskeletal: Other (Right BKA) Integumentary: No rashes, No erythema Neurological: Other (No focal motor deficit.) Laboratory Data at Discharge: WBC 7.60 K/uL (4.3-10.9) 05/09/21 04:21 Hgb 11.8 g/dL (12.0-15.0) L 05/09/21 04:21 Hct 34.7 % (36.0-45.0) L D 05/09/21 04:21 Plt Count 191 K/uL (152-406) 05/09/21 04:21 Sodium 139 mmol/L (136-145) 05/09/21 04:21 Potassium 5.1 mmol/L (3.5-5.1) 05/09/21 04:21 BUN 40 mg/dL (7-18) H 05/09/21 04:21 Creatinine 3.57 mg/dL (0.55-1.3) H 05/09/21 04:21 Glucose 82 mg/dL (74-106) 05/09/21 04:21 Troponin I < 0.02 ng/mL (0.0-0.045) 05/08/21 20:57 Triglycerides 71 mg/dL (<150) 05/09/21 04:21 Cholesterol 122 mg/dL (<200) 05/09/21 04:21 HDL Cholesterol 54 mg/dL (40-60) 05/09/21 04:21 Cholesterol/HDL Ratio 2.26 05/09/21 04:21 Home Medications: Aspirin 81 mg PO DAILY 12/23/19 Atorvastatin Calcium [Lipitor] 20 mg PO BEDTIME 02/09/20 Calcitrol [Rocaltrol*] 0.25 mcg PO Q48H cap 05/09/21 Clopidogrel Bisulfate [Plavix*] 75 mg PO DAILY tablet 05/09/21 Codeine/APAP [Tylenol #3*] 1 tab PO Q8HP PRN 05/09/21 Docusate Sodium [Stool Softener] 200 mg PO DAILY 05/09/21 Duloxetine HCl [Cymbalta] 60 mg PO BID 05/09/21 Folic Acid 1 mg PO DAILY 05/09/21 Folic Acid/Vit B Complex and C [Renal-Guillermo Tablet] 1 tab PO DAILY 05/09/21 Gabapentin [Neurontin*] 100 mg PO M,W,F cap 05/09/21 Glucagon,Human Recombinant [Glucagon Emergency Kit] 1 mg IM PRN PRN 05/09/21 Hydroxyzine Hcl [Atarax] 10 mg PO TID PRN 05/09/21 Insulin Aspart See Protocol SQ ACHS 05/09/21 Insulin Detemir [Levemir] 10 units SQ DAILY 05/09/21 Levothyroxine [Synthroid*] 50 mcg PO [id number] 05/09/21 Melatonin 10 mg PO BEDTIME 05/09/21 Meloxicam [Mobic*] 7.5 mg PO 1800 05/09/21 Mirtazapine [Remeron*] 15 mg PO BEDTIME 05/09/21 Polyethyl Gly 3350 [Glycolax*] 17 gm PO DAILY 05/09/21 Sertraline [Zoloft*] 100 mg PO DAILY tab 05/09/21 Sevelamer Carbonate 2 packet PO TIDWM 05/09/21 Zinc Oxide/Menthol/Calamine [Lantiseptic Multi-Purpose Oint] 113 gm TOP DAILY PRN 05/09/21 cloNIDine HCL [Clonidine HCl] 0.1 mg PO BEDTIME 05/09/21 Diet: ADA Activity: Ad abdias Followup: Kirsten Baez MD [Primary Care Provider] -
--- NOTE | 2021-05-09 13:20 | PN ---
Date of Progress Note: 05/09/2021 Subjective: The patient was admitted with hyperkalemia, over volume. The patient had dialysis yeste rday, tolerated the dialysis. We managed to remove 3 L. Physical Examination: Vital Signs: Blood pressure 162/78, pulse of 86, afebrile. Chest: Crackles in the base. Heart: S1, S2. Regular. Abdomen: Soft, nontender. Extremities: No edema. Neurologic: Legally blind. No focality. Laboratory Data: H and H 11.8/34.7. Sodium 139, potassium 5.1, bicarb 33, BUN 40, creatinine 3.5, c alcium 8.5. Current Medications: The patient on include aspirin, Plavix, heparin, atorvastatin, labetalol, gabap entin, Zoloft, Lasix 40 b.i.d., Renvela, tramadol, insulin, calcitriol. Assessment And Plan: 1.End-stage renal disease with hyperkalemia, over volume, status post dialysis yesterday, tolerated very well. Currently stable back to baseline, on room air. The patient cleared from the Renal stand point for discharge planning to do dialysis tomorrow as outpatient. 2.Hyperkalemia secondary to poor compliance, resolved after dialysis. 3.Over volume, currently normal volume. We will challenge the patient as outpatient. 4.Diabetes as by primary. 5.Hypertension, controlled, optimal. Continue to monitor. We will utilize the blood pressure for ultrafiltration. 6.Secondary hyperparathyroidism. Resume binder. DEBBIE Voice ID: [id number] Report ID: [id number]
--- NOTE | 2021-05-09 13:34 | CON ---
Date of Consultation: 05/09/2021 Reason For Consultation: Hyperkalemia, hypertension, over volume. History Of Present Illness: This is a pleasant 45-year-old female, well known to me from dialysis wi th significant past medical history of end-stage renal disease secondary to diabetes, on hemodialysis Thursday, Thursday, Thursday at [facility], diabetes complicated with neuropathy, r etinopathy, legally blind and nephropathy, hypertension, hyperlipidemia, the patient came to the hosp ital from the dialysis center as her potassium was 8.4. The patient was symptomatic in the ER, found to have potassium still elevated up to 7.4. For that reason, we have been consulted. We took the p atient for urgent dialysis. The patient was treated medically also. Past Medical History: Includes; 1.Diabetes complicated with neuropathy, retinopathy, nephropathy. 2.Hypertension. 3.Hyperlipidemia. 4.End-stage renal disease, on hemodialysis Thursday, Thursday, Thursday. 5.CVA. 6.GERD. Past Surgical History: Includes cholecystectomy, thyroidectomy, eye surgery, , PermCath jocelin cement. Allergies: NO KNOWN DRUG ALLERGIES. Social History: Active smoker, active alcohol. Denied drugs abuse. Family History: Positive for diabetes, CAD, hypertension. Review of Systems: Head and Neck: No red eye. No ear pain. GI: No nausea. No vomiting. : No polyuria. No dysuria. No hematuria. 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 Respiratory: Has shortness of breath. Cardiovascular: No chest pain. Endocrine: No polydipsia. Skin: No rash. Physical Examination: General: When I saw the patient, the patient is lying in bed, not only with shortness of breath. Vital Signs: Blood pressure of 164/71, pulse of 60. Chest: Crackles bilateral. Heart: S1, S2. Regular. Abdomen: Soft, nontender. Extremity: No edema. Neurologic: Alert. No focality. Legally blind. Laboratory Data: Sodium 132, potassium 7.4, bicarb 25, BUN 83, creatinine 5.8, calcium 9.5. H and H 13.6/40.9. Assessment And Plan: 1.End-stage renal disease, over volume with hyperkalemia. I am going to go ahead and arrange for di alysis today. We will schedule the dialysis to be done on low-potassium bath, 2K in the first 2 hour s, then 1.5 hour of 1K, and we will monitor. We will challenge the patient to establish better volum e control. 2.Hyperkalemia as above. We will dialyze the patient on low-potassium bath. 3.Hypertension. We will follow up blood pressure after dialysis. 4.Secondary hyperparathyroidism. Resume her binder. 5.Anemia of chronic kidney disease, stable. We will resume [place] as outpatient. 6.Diabetes as by primary. Home Medications: Include Zoloft, mirtazapine, meloxicam, levothyroxine, gabapentin, folic acid, doc usate, aspirin, atorvastatin, calcitriol. CASSIE/KERI Voice ID: [id number] Report ID: [id number]
[2021-05-09 18:02] VITALS: BP 124/49; TEMP 97.9
== END 2021-05-09 16:29 ==
LOC: ER 09:53 → ERHOLD 16:40 → 2ND 05-09 00:15
PROVIDERS: ADMIT Internal Medicine; ATTEND Internal Medicine
DX: E87.5 Hyperkalemia (principal); I12.0 Hypertensive chronic kidney disease with stage 5 chronic kidney disease or end stage renal disease; E11.22 Type 2 diabetes mellitus with diabetic chronic kidney disease; N18.6 End stage renal disease; D63.1 Anemia in chronic kidney disease; Z99.2 Dependence on renal dialysis; N25.81 Secondary hyperparathyroidism of renal origin; E11.40 Type 2 diabetes mellitus with diabetic neuropathy, unspecified; E11.319 Type 2 diabetes mellitus with unspecified diabetic retinopathy without macular edema; E11.21 Type 2 diabetes mellitus with diabetic nephropathy; E78.5 Hyperlipidemia, unspecified; K21.9 Gastro-esophageal reflux disease without esophagitis; H54.8 Legal blindness, as defined in USA; F32.9 Major depressive disorder, single episode, unspecified; E89.0 Postprocedural hypothyroidism; Z91.19 Patient's noncompliance with other medical treatment and regimen; F17.200 Nicotine dependence, unspecified, uncomplicated; Z20.822 Contact with and (suspected) exposure to COVID-19; Z79.02 Long term (current) use of antithrombotics/antiplatelets; Z79.82 Long term (current) use of aspirin; Z86.73 Personal history of transient ischemic attack (TIA), and cerebral infarction without residual deficits; Z85.850 Personal history of malignant neoplasm of thyroid; Z90.49 Acquired absence of other specified parts of digestive tract; Z89.511 Acquired absence of right leg below knee; Z82.49 Family history of ischemic heart disease and other diseases of the circulatory system; Z83.3 Family history of diabetes mellitus; Z83.49 Family history of other endocrine, nutritional and metabolic diseases
CPT/HCPCS: 93005; 85025 ×2; 80048 ×3; 36415; 81025; 80061; 82947 ×9; 84443; 84484; 84439; 90935 ×2; 96375; 96374; 99285; U0003; J1644 ×3; G0378 ×2; J1815

== ENCOUNTER 2021-05-25 11:32 | Emergency (ER) | payer OTHER ==
--- NOTE | 2021-05-25 12:10 | RAD REPORT ---
EXAM DESCRIPTION: RAD - Chest Single View - 05/25/2021 11:54 am CLINICAL HISTORY: weak, low blood pressure Chest pain. COMPARISON: Abdomen 1 View (KUB) dated 08/24/2020; Chest Single View dated 07/05/2020; Chest Single Vi ew dated 05/17/2020; Abdomen 1 View (KUB) dated 05/02/2020 FINDINGS: Portable technique limits examination quality. The lungs are grossly clear. The heart is normal in size. No displaced fractures. IMPRESSION: No acute intrathoracic process suspected.
[2021-05-25] MEDS ORDERED: NA CHLORIDE 0.9% 500 ML ONE (12:12)
[2021-05-25 12:17] LABS: Absolute Lymphocytes (CBC) 1.3 K/uL (0.7-4.9); Basophils % 0.5 % (0-1.3); Hematocrit 42.4 % (36.0-45.0); Lymphocytes % 15.1 % (15.3-44.8); MPV 7.6 fL (7.6-11.3); RBC Red Blood Cell Count 4.25 M/uL (3.86-4.86)
[2021-05-25 12:57] LABS: Potassium 3.9 mmol/L (3.5-5.1)
--- NOTE | 2021-05-25 15:38 | EDPHYS ---
Physician Documentation [facility] Name: Archana Woo Age: 45 yrs Sex: Female : 1975 Arrival Date: 05/25/2021 Time: 11:35 Bed 2 Private MD: ED Physician Russ Canales HPI: 05/25 15:27 This 45 yrs old Female presents to ER via EMS with complaints of General rn Weakness. 15:27 Generalized weakness and fatigue since dialysis yesterday. Onset: The symptoms/episode rn began/occurred yesterday. Severity of symptoms: At their worst the symptoms were moderate in the emergency department the symptoms are unchanged. It is unknown whether or not the patient has had similar symptoms in the past. The patient has been recently seen by a physician:. Patient reports generalized fatigue and generalized weakness since dialysis yesterday. States fluid restrictions at retirement that do not allow her to drink. Denies any pain. No fever. No chest pain or abdominal pain. No vomiting or diarrhea. No shortness of breath. Reports feels dry mouth and very thirsty.. 15:28 care home initially stated low blood pressure but upon EMS arrival blood pressure rn was high 90s systolic. Started a small IV on patient and administered some fluids and blood pressure now greater than 100 systolic with a small amount of fluids given. EMS states patient already better appearing. Historical: - Allergies: 11:47 No Known Allergies; ss - PMHx: 11:47 BLIND; GERD; dialysis W \T\ F; DIALYSIS MWF; Diabetes - NIDDM; Depression; CVA; ss Hyperlipidemia; Hypertension; left arm paralysis; neuropathy; THYROID CANCER; TIA; - Immunization history:: Client reports receiving the 2nd dose of the Covid vaccine. - Social history:: Smoking status: Patient denies any tobacco usage or history of. - Family history:: not pertinent. - Hospitalizations: : No recent hospitalization is reported. ROS: 15:28 Constitutional: Negative for fever, chills, and weight loss, Eyes: Negative for injury, rn pain, redness, and discharge, Neck: Negative for injury, pain, and swelling, Cardiovascular: Negative for chest pain, palpitations, and edema, Respiratory: Negative for shortness of breath, cough, wheezing, and pleuritic chest pain, Abdomen/GI: Negative for abdominal pain, nausea, vomiting, diarrhea, and constipation, Back: Negative for injury and pain, MS/Extremity: Negative for injury and deformity, Skin: Negative for injury, rash, and discoloration, Neuro: Negative for headache, weakness, numbness, tingling, and seizure. Exam: 15:28 Constitutional: This is a well developed, well nourished patient who is somnolent, rn awakens to voice. No acute distress. Head/Face: Normocephalic, atraumatic. Eyes: Periorbital areas with no swelling, redness, or edema. ENT: Very dry mucous membranes, barely able to separate lips Cardiovascular: Regular rate and rhythm. No pulse deficits. Respiratory: No increased work of breathing, no retractions or nasal flaring. Abdomen/GI: Soft, non-tender Skin: Warm, dry, small wound to right stump without drainage or bad odor. No surrounding erythema MS/ Extremity: No open wounds or cellulitis of left lower extremity Neuro: Somnolent but awakens to voice. GCS 15. Moves all 4 extremities. Answers questions appropriately. 15:28 ECG was reviewed by the Attending Physician. rn Vital Signs: 11:44 BP 108 / 56; Pulse 76; Resp 14; Temp 98.5(TE); Pulse Ox 98% ; Weight 64.41 kg; Pain ss 0/10; 12:30 BP 113 / 56; Pulse 75; Resp 14; Pulse Ox 100% ; sv 13:54 BP 137 / 64; Pulse 82; Resp 14; Pulse Ox 98% on R/A; hb 15:19 BP 136 / 66; Pulse 90; Resp 16; Pulse Ox 99% on R/A; hb MDM: 11:38 Patient medically screened. rn 15:28 Differential Diagnosis Generalized weakness, end-stage renal disease, dehydration, rn sepsis. Data reviewed: vital signs, nurses notes, lab test result(s), EKG, radiologic studies, plain films, and as a result, I will discharge patient. Data interpreted: environmental monitoring specialist: rate is 90 beats/min, rhythm is normal sinus rhythm, regular, with no ectopy, Interpretation: normal rate, normal rhythm, Pulse oximetry: on room air is 99 %. Interpretation: normal. Counseling: I had a detailed discussion with the patient and/or guardian regarding: the historical points, exam findings, and any diagnostic results supporting the discharge/admit diagnosis, lab results, radiology results, the need for outpatient follow up, to return to the emergency department if symptoms worsen or persist or if there are any questions or concerns that arise at home. Response to treatment: the patient's symptoms have markedly improved after treatment, Patient markedly improved, wide-awake after IV fluids, eating. Still denies any focal pain or tenderness on exam. Most likely dehydration due to fluid restriction and dialysis yesterday. Will DC back to retirement with return precautions.. 05/25 11:38 Order name: CBC with Diff rn 05/25 11:38 Order name: Basic Metabolic Panel rn 05/25 11:38 Order name: Blood Culture Adult (2) rn 05/25 11:38 Order name: Procalcitonin; Complete Time: 15:06 rn 05/25 11:39 Order name: CBC with Automated Diff; Complete Time: 12:37 EDMS 05/25 11:39 Order name: Basic Metabolic Panel; Complete Time: 15:06 EDMS 05/25 11:38 Order name: IV Start; Complete Time: 12:07 rn 05/25 11:38 Order name: Glucose Level; Complete Time: 12:07 rn 05/25 11:38 Order name: EKG; Complete Time: 11:39 rn 05/25 11:38 Order name: EKG - Nurse/Tech; Complete Time: 12:07 rn 05/25 11:38 Order name: XRAY Chest (1 view); Complete Time: 12:37 rn 05/25 12:10 Order name: Glucose, Ancillary Testing; Complete Time: 12:37 EDMS 05/25 13:57 Order name: Diet Regular; Complete Time: 13:57 hb EC:28 Rate is 75 beats/min. Rhythm is regular. QRS [place] is Normal. OR interval is normal. QRS rn interval is normal. QT interval is normal. No Q waves. T waves are Normal. No ST changes noted. Clinical impression: NSR w/ Non-specific ST/T Changes. Interpreted by me. Reviewed by me. Administered Medications: 12:07 Drug: NS 0.9% 500 ml Route: IV; Rate: bolus; Site: right hand; hb 14:22 Follow up: Response: No adverse reaction; IV Status: Completed infusion; IV Intake: hb 1435ml Disposition Summary: 05/25/21 15:38 Discharge Ordered Location: Home rn Problem: new rn Symptoms: have improved rn Condition: Stable rn Diagnosis - Dehydration rn - End stage renal disease rn Followup: rn - With: Private Physician - When: As needed - Reason: Recheck today's complaints, Re-evaluation by your physician Discharge Instructions: - Discharge Summary Sheet rn - Dehydration, Adult rn - End-Stage Kidney Disease rn Forms: - Medication Reconciliation Form rn - Thank You Letter rn - Antibiotic hospital intern - Prescription Opioid Use rn Signatures: Dispatcher [employer] EDMS Russ Canales MD MD rn Smirch, Shelby, RN RN Joanna Carrero RN RN Corrections: (The following items were deleted from the chart) 15:35 15:28 Constitutional: This is a well developed, well nourished patient who is rn somnolent, awakens to voice. No acute distress. Head/Face: Normocephalic, atraumatic. Eyes: Periorbital areas with no swelling, redness, or edema. Cardiovascular: Regular rate and rhythm. No pulse deficits. Respiratory: No increased work of breathing, no retractions or nasal flaring. Abdomen/GI: Soft, non-tender Skin: Warm, dry, small wound to right stump without drainage or bad odor. No surrounding erythema MS/ Extremity: No open wounds or cellulitis of left lower extremity Neuro: Somnolent but awakens to voice. GCS 15. Moves all 4 extremities. Answers questions appropriately. rn
--- NOTE | 2021-05-25 15:38 | ER ---
Nurse's Notes [facility] Name: Archana Woo Age: 45 yrs Sex: Female : 1975 Arrival Date: 05/25/2021 Time: 11:35 Bed 2 Private MD: Diagnosis: Dehydration;End stage renal disease Presentation: 05/25 11:44 Chief complaint: EMS states: Generalized weakness and feeling "heavy all over" that ss began yesterday after dialysis. retirement reported low BP of 62/40 and high blood sugar of 400. Upon EMS arrival, BP was 97/46 and BGL 85. Coronavirus screen: Client denies travel out of the [place] in the last 14 days. Ebola Screen: Patient denies exposure to infectious person. Patient denies travel to an Ebola-affected area in the 21 days before illness onset. Initial Sepsis Screen: Does the patient meet any 2 criteria? No. Patient's initial sepsis screen is negative. Does the patient have a suspected source of infection? No. Patient's initial sepsis screen is negative. Risk Assessment: Do you want to hurt yourself or someone else? Patient reports no desire to harm self or others. Onset of symptoms was May 24, 2021. 11:44 Method Of Arrival: EMS ss 11:44 Acuity: TARUN 3 ss 11:48 Care prior to arrival: IV initiated. 24 gauge in R hand, 1000 mL bolus started Glucose ss check: 85. Transition of care: patient was received from another setting of care (long-term care facility), [facility]. Historical: - Allergies: 11:47 No Known Allergies; ss - PMHx: 11:47 BLIND; GERD; dialysis W \\T\\ F; DIALYSIS MWF; Diabetes - NIDDM; Depression; CVA; ss Hyperlipidemia; Hypertension; left arm paralysis; neuropathy; THYROID CANCER; TIA; - Immunization history:: Client reports receiving the 2nd dose of the Covid vaccine. - Social history:: Smoking status: Patient denies any tobacco usage or history of. - Family history:: not pertinent. - Hospitalizations: : No recent hospitalization is reported. Screenin:39 Abuse screen: Denies threats or abuse. Nutritional screening: No deficits noted. tw2 Tuberculosis screening: No symptoms or risk factors identified. Fall Risk Secondary diagnosis (15 points) impaired mobility, BLIND. Assessment: 13:54 Reassessment: Patient appears in no apparent distress at this time. Patient and/or hb family updated on plan of care and expected duration. Pain level reassessed. Patient is alert, oriented x 3, equal unlabored respirations, skin warm/dry/pink. 14:22 Reassessment: Patient appears in no apparent distress at this time. Patient and/or hb family updated on plan of care and expected duration. Pain level reassessed. Patient is alert, oriented x 3, equal unlabored respirations, skin warm/dry/pink. Vital Signs: 11:44 BP 108 / 56; Pulse 76; Resp 14; Temp 98.5(TE); Pulse Ox 98% ; Weight 64.41 kg; Pain ss 0/10; 12:30 BP 113 / 56; Pulse 75; Resp 14; Pulse Ox 100% ; sv 13:54 BP 137 / 64; Pulse 82; Resp 14; Pulse Ox 98% on R/A; hb 15:19 BP 136 / 66; Pulse 90; Resp 16; Pulse Ox 99% on R/A; hb ED Course: 11:35 Patient arrived in ED. eb 11:35 Bed in low position. Side rails up X2. tw2 11:38 Russ Canales MD is Attending Physician. rn 11:40 Daughter Tae Woo called to leave her cell phone number at [phone]/ she would eb like to be called with and update. also if we has any questions or concerns to please call her. 11:47 Triage completed. ss 11:47 Arm band placed on right wrist. ss 11:54 XRAY Chest (1 view) In Process Unspecified. EDMS 11:55 EKG done, by ED staff, reviewed by Russ Canales MD. sv 14:36 Basic Metabolic Panel Sent. sv 14:36 CBC with Diff Sent. sv Administered Medications: 12:07 Drug: NS 0.9% 500 ml Route: IV; Rate: bolus; Site: right hand; hb 14:22 Follow up: Response: No adverse reaction; IV Status: Completed infusion; IV Intake: hb 1435ml Intake: 14:22 IV: 1435ml; Total: 1435ml. hb Outcome: 15:38 Discharge ordered by . rn 16:08 Patient left the ED. hb Signatures: Dispatcher [employer] EDMarcella Anthony RN RN sv Nieto, Roman, MD MD rn Smirch, May, RN RN ss Joanna Carrero, RN RN Mery Wang, RN RN tw2 Michelle Seay
[2021-05-25 16:17] VITALS: TEMP 98.5
[2021-05-25 16:21] VITALS: BP 136/66; O2SAT 99
== END 2021-05-25 16:08 | disposition home or self-care (01) ==
LOC: ER 11:32
DX: E86.0 Dehydration (principal); N18.6 End stage renal disease
CPT/HCPCS: 96361; 93005; 87040 ×2; 85025; 80048; 36415; 82947; 84145; 71045; 96360; 99284; J7040

== ENCOUNTER 2021-08-23 14:47 | Emergency (ER) | payer OTHER ==
--- OUTSIDE RECORDS SUMMARY | 2021-08-23 14:53 | XMS REPORT | Continuity of Care Document ---
:1975 Author Organization [facility] t Address [address] [place] [address] Care Team Providers Name Role Phone DR DAVE Attending Clinician Unavailable YODIT Attending Clinician Unavailable Zhen Ibrahim Attending Clinician Unavailable Isabel CRUZ Attending Clinician Unavailable Venkatesh REYNOSO Attending Clinician VENKATESH Attending Clinician Unavailable VIOLETA Attending Clinician Unavailable LYN EDWARDS Attending Clinician Unavailable DR DAVE Admitting Clinician Unavailable YODIT Admitting Clinician Unavailable Yuliana Linda Admitting Clinician Unavailable Graham SALINAS Admitting Clinician Unavailable LYN EDWARDS Admitting Clinician Unavailable Payers Payer Name Policy Type Policy Number Effective Date Expiration Date S ource UNITED MEDICARE [id number] 2016 HMO 00:00:00 [facility] COMM STAR [id number] 2013 PLAN 00:00:00 Problems Condition Condition Condition Status Onset Resolution Last Treating Co mments Source Name Details Category Date Date Treatment Clinician Date Proliferat Proliferat Disease Active Overview : Univers evonne evonne 3-30 Both ity of diabetic diabetic 00:00: [id number] Gee as retinopath retinopath 00 Diagnosis Medical y y Term Branch Youth Coordinator Utility 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 3-22 ICD10 ity of mellitus mellitus 00:00: Diagnosis Gee as without without 00 Term Medical complicati complicati Youth Coordinator Branch ons ons Utility Allergies, Adverse Reactions, Alerts Allergy Allergy Status Severity Reaction(s) Onset Inactive Treating Comm ents Source Name Type Date Date Clinician Yenyinopr Propensi Active Unknown - Uni vers [place] ty to See comments 01-01 it y of chloroth adverse 00:00: [place] iazide reaction 00 Medical s Branch LISINOPR DRUG Active Unknown-Cmnt Un ruby IL-HYDRO 01-01 ity of CHLOROTH 00:00: [place] IAZIDE 00 Medical Branch No Known DA Active [facility]ie 08-22 [facility] 00:00: [address] No Known DA Active U [facility] Allergie 08-22 [facility] 00:00: [address] NO KNOWN Drug Active Univers ALLERGIE Class ity of S [facility] NO KNOWN Allergy Active [facility] ALLERGIE S Social History Social Habit Start Date Stop Date Quantity Comments Source Exposure to Not sure [facility] SARS-CoV-2 (event) [facility] Tobacco use and 2021-01-01 2021-01-01 Never used [facility] exposure 00:00:00 00:00:00 [facility] Sex Assigned At [birth year] [facility] 00:00:00 00:00:00 [facility] Smoking Status Start Date Stop Date Source Never smoker [facility] Medications Ordered Filled Start Stop Current Ordering Indication Dosage Frequency Signature Comments Components Source Medication Medication Date Date Medication? Clinician (SIG) Name Name [facility] Yes 1 drop as Un ruby OPHTHALMIC 3-23 needed ity of 02:09: [address] Yes 1 drop as Un ruby OPHTHALMIC 3-23 needed ity of 02:09: [address] Yes 1 drop as Un ruby OPHTHALMIC 3-23 needed ity of 02:09: [address] ALLERGEN Yes 1 drop as Univ ers OTIC 3-08 needed ity of 00:19: [address] ALLERGEN Yes 1 drop as Univ ers OTIC 3-08 needed ity of 00:19: [address] ALLERGEN Yes 1 drop as Univ ers OTIC 3-08 needed ity of 00:19: [address] ATROPINE Yes Use As DIR Uni vers (BULK) MISC -24 ity of 00:41: [place] [address] Medical Branch ATROPINE 2007- Yes Use As DIR Uni vers (BULK) MISC 24 ity of 00:41: [place] [address] Medical Branch ATROPINE 2006- Yes Use As DIR Uni vers (BULK) MISC 24 ity of 00:41: [place] [address] Medical Branch PREDNISOLON 2005-08 Yes 0.05 mL Uni vers E ACETATE 1 1-07 Left Eye ity of % 00:00: QID [place] OPHTHALMIC 00 Medical DRPS Branch TOBRAMYCIN 2005-08 Yes 0.05 mL Univ ers SULFATE 0.3 1-07 Left Eye ity of % 00:00: QID [place] OPHTHALMIC 00 Medical DROP Branch SCOPOLAMINE 2005-08 Yes 0.05 mL Uni vers HBR 0.25 % 1-07 Left Eye ity o f OPHTHALMIC 00:00: BID [place] DROP 00 Medical Branch ACETAMINOPH 2005-08 Yes 2 Tab Oral Univers EN-CODEINE 1-07 Q6HPRN ity of 300-30 MG 00:00: [place] ORAL TAB 00 Medical Branch PREDNISOLON 2005-08 Yes 0.05 mL Uni vers E ACETATE 1 -07 Left Eye ity of % 00:00: QID [place] OPHTHALMIC 00 Medical DRPS Branch TOBRAMYCIN 2005-08 Yes 0.05 mL Univ ers SULFATE 0.3 1-07 Left Eye ity of % 00:00: QID [place] OPHTHALMIC 00 Medical DROP Branch SCOPOLAMINE 2005-08 Yes 0.05 mL Uni vers HBR 0.25 % 1-07 Left Eye ity o f OPHTHALMIC 00:00: BID [place] DROP 00 Medical Branch ACETAMINOPH 2005-08 Yes 2 Tab Oral Univers EN-CODEINE 1-07 Q6HPRN ity of 300-30 MG 00:00: [place] ORAL TAB 00 Medical Branch PREDNISOLON 2005-08 Yes 0.05 mL Uni vers E ACETATE 1 1-07 Left Eye ity of % 00:00: QID [place] OPHTHALMIC 00 Medical DRPS Branch TOBRAMYCIN 2005-08 Yes 0.05 mL Univ ers SULFATE 0.3 1-07 Left Eye ity of % 00:00: QID [place] OPHTHALMIC 00 Medical DROP Branch SCOPOLAMINE 2005-08 Yes 0.05 mL Uni vers HBR 0.25 % 1-07 Left Eye ity o f OPHTHALMIC 00:00: BID [place] DROP 00 Medical Branch ACETAMINOPH 2005-08 Yes 2 Tab Oral Univers EN-CODEINE 1-07 Q6HPRN ity of 300-30 MG 00:00: [place] ORAL TAB [facility] Vital Signs Vital Name Observation Time Observation Value Comments Source HEIGHT 2020-05-17 162.6 cm 00:00:00 WEIGHT 2020-05-17 61.236 kg 00:00:00 Systolic blood 2021-01-01 162 mm[Hg] Simultaneous [place] of pressure 15:08:00 filing. User may [place] Medic al not have seen Branch previous data. Diastolic blood 2021-01-01 76 mm[Hg] Simultaneous [place] o f pressure 15:08:00 filing. User may [place] Medic al not have seen Branch previous data. Heart rate 2021-01-01 97 /min Simultaneous [facility] 15:08:00 filing. User may [place] Medic al not have seen Branch previous data. Body temperature 2021-01-01 36.61 Mallory Simultaneous [facility] 15:08:00 filing. User may [place] Medic al not have seen Branch previous data. Respiratory rate 2021-01-01 18 /min [facility] 15:08:00 [facility] Body weight 2021-01-01 63.957 kg [facility] 15:08:00 [facility] Oxygen saturation 2021-01-01 99 /min Simultaneous [facility] in Arterial blood 15:08:00 filing. User may [place] Medical by Pulse oximetry not have seen Branch previous data. HEIGHT 2020-05-17 162.6 cm 00:00:00 WEIGHT 2020-05-17 61.236 kg 00:00:00 Procedures Procedure Date / Time Performed [facility]forming [id number] 2019-05-18 00:00:00 ENCPL [id number] 2019-05-18 00:00:00 ENCPL [id number] 2019-05-18 00:00:00 ENCPL [id number] 2019-05-18 00:00:00 ENCPL Encounters Start End Encounter Admission Attending Care Care Encounter Source Date/Time Date/Time Type Type Clinicians Facility Department ID 2020-06-15 Inpatient LUIZ SERRATO [id number] [facility] 08:00:00 [facility] 2020-05-18 Inpatient ER [facility]AIN[facility]IVAIS [id number] [facility] 2019-08-23 Inpatient ROBERTO JohnsonWU SURG [id number] [facility] 15:45:00 Imran [facility] 2019-04-12 Inpatient [facility] MED [id number] [facility] W 13:57:46 2021-07-02 2021-07-02 [facility] [id number] Univers 10:30:00 10:30:00 CATALINA [id number] ity [facility] 2021-01-01 2021-01-01 Office [facility] [id number] [facility] 09:55:30 11:22:11 [id number] Jaki Jenkinsio [id number] Hi dical [address] 2021-01-01 2021-01-01 [facility] [id number] Univers 09:45:00 09:45:00 ELISSA amado [facility] 2020-10-30 2020-10-30 Outpatient STLMLC [facility] [id number] [facility] 2020-06-26 2020-06-26 Outpatient STLMLC [facility]MLC [id number] [facility] 2019-09-20 2019-09-20 Outpatient ROBERTO IbrahimAllisonU SURG [id number] [facility] 15:45:00 15:45:00 Imran [facility] Results Test Description Test Time Test Comments [...] No organisms seen (BEAKER) (test code = 219967) SURGICALLY OBTAINED CULTURE + GRAM [id number] 11:24:00 Test Item Value Reference Range Interpretation Comments CULTURE (BEAKER) A <1+ Trinidad (test code = parapsilosis 1095) GRAM STAIN No White blood RESULT (BEAKER) cells seen (test code = 1123) GRAM STAIN No organisms seen RESULT (BEAKER) (test code = 34713) ANAEROBIC [id number] 15:40:00 Test Item Value Reference Range Interpretation Comments CULTURE (BEAKER) (test No anaerobes isolated code = 1095) ANAEROBIC [id number] 15:40:00 Test Item Value Reference Range Interpretation Comments CULTURE (BEAKER) (test No anaerobes isolated code = 1095) POCT-GLUCOSE [id number] 08:09:00 Test Item Value Reference Range Interpretation Comments POC-GLUCOSE METER 151 mg/dL 70-110 H : TESTED A T [facility] 1317 (BEAKER) (test code [facility] [address], = 1538) [facility] 77 478: Reel Hooker/Techni tammy ID = [id number] for Emilee Kovacs BASIC METABOLIC [id number] 06:34:00 Test Item Value Reference Range Interpretation Comments SODIUM (BEAKER) 140 meq/L 135-148 (test code = 381) POTASSIUM (BEAKER) 4.0 meq/L 3.6-5.5 (test code = 379) CHLORIDE (BEAKER) 101 meq/L 98-106 (test code = 382) CO2 (BEAKER) (test 28 meq/L 20-29 code = 355) BLOOD UREA NITROGEN 13 mg/dL 10-26 (BEAKER) (test code = 354) [...] S NOT APPLICABLE FOR DIALYSIS PATIEN TS. Reel Hooker ID - [id number] 06:23:00 Test Item Value Reference Range Interpretation Comments PHOSPHORUS (BEAKER) (test code = 4.0 mg/dL 2.5-4.5 604) Reel Hooker ID - ADMINCBC W/PLT COUNT & AUTO [id number] 05:45:00 Test Item Value Reference Range Interpretation [...] PERCENT (BEAKER) (test code = 2801) POCT-GLUCOSE [id number] 20:47:00 Test Item Value Reference Range Interpretation Comments POC-GLUCOSE METER 205 mg/dL 70-110 H : TESTED A T [facility] 1317 (BEAKER) (test code [address], = 1538) [place] [address]: Reel Hooker/Techni tammy ID = [id number] for Pat Reyes BLOOD [id number] 13:00:00 Test Item Value Reference Range Interpretation Comments CULTURE (BEAKER) (test No growth in 5 days code = 1095) POCT-GLUCOSE [id number] 11:38:00 Test Item Value Reference Range Interpretation Comments POC-GLUCOSE METER 74 mg/dL 70-110 : TESTED A T [facility] 1317 (BEAKER) (test code = [address], 1538) [place] [address]: Reel Hooker/Techni tammy ID = [id number] for Buff ord, Soheila POCT-GLUCOSE [id number] 07:31:00 Test Item Value Reference Range Interpretation Comments POC-GLUCOSE METER 104 mg/dL 70-110 : TESTED A T [facility] 1317 (BEAKER) (test code [address], = 1538) [place] [address]: Reel Hooker/Techni tammy ID = [id number] for Buff ord, Soheila BASIC METABOLIC [id number] 05:25:00 Test Item Value Reference Range Interpretation [...] S NOT APPLICABLE FOR DIALYSIS PATIEN TS. Reel Hooker ID - [id number] 05:21:00 Test Item Value Reference Range Interpretation Comments PHOSPHORUS (BEAKER) (test code = 5.1 mg/dL 2.5-4.5 H 604) Reel Hooker ID - ADMINVANCOMYCIN LEVEL, [id number] 05:20:00 Test Item Value Reference Range Interpretation Comments VANCOMYCIN RANDOM (BEAKER) (test 19.7 ug/mL code = 523) Reference Range: No NormalsOperator ID - ADMINCBC W/PLT COUNT & AUTO [id number] 05:10:00 Test Item Value Reference Range Interpretation [...] PERCENT (BEAKER) (test code = 2801) POCT-GLUCOSE [id number] 20:52:00 Test Item Value Reference Range Interpretation Comments POC-GLUCOSE METER 127 mg/dL 70-110 H : TESTED A T [facility] [address]17 (BEAKER) (test code [address], = 1538) [facility] 77 478: Reel Hooker/Techni tammy ID = [id number] for chyna Waldrop TISSUE [id number] 11:55:00Surgical Pathology Report Case: [id number] Authorizing Provider: Jada Alfonso DPM Collected: 05/21/2020 12:36 PM Ordering Location: [facility] Med Surg 5th Floor Received: 05/21/2020 12:49 PM Pathologist: Ann Meeks MD Specimen: Benito ne, right 1st metatarsal head bone biopsy BONE, RIGHT FIRSTMETATARSAL HEAD, BIOPSY: - BONE WITH FOCAL FIBROSIS AND CHRONIC INFLAMMATION, CONSISTENT WITH CHRONIC OSTEOMYELITIS Signing Pathologist Direct Phone Line: [phone] signed by Ann Meeks MD on 05/22/2020 at 11:55 [id number]; [id number] foot abscessRight 1st metatarsalhead bone biopsySpecimen is received in formalin designated "bone" and consists of two marin-red bone fragments measuring 1 x 0.3 x 0.3 cm, submitted after decalcification in cassette A1. SQ/plPerformed. [facility], Department of Pathology, [address] [place] [address], Tlkpxq [facility], Department of Pathology, [address] [place] [address], [facility], [facility] of [facility], [facility] [place] [address], TAMR-GLUCOSE [id number] 11:41:00 Test Item Value Reference Range Interpretation Comments POC-GLUCOSE METER 84 mg/dL 70-110 : TESTED A T [facility] 1317 (BEAKER) (test code = [address], 1538) [place] [address]: Reel Hooker/Techni tammy ID = [id number] for Daryn marcanoMary POCT-GLUCOSE [id number] 07:38:00 Test Item Value Reference Range Interpretation Comments POC-GLUCOSE METER 93 mg/dL 70-110 : TESTED A T [facility] 1317 (BEAKER) (test code = [address], 1538) [place] [address]: Reel Hooker/Techni tammy ID = [id number] for Daryn marcano Mary BASIC METABOLIC [id number] 06:04:00 Test Item Value Reference Range Interpretation [...] S NOT APPLICABLE FOR DIALYSIS PATIEN TS. Reel Hooker ID - [id number] 05:51:00 Test Item Value Reference Range Interpretation Comments PHOSPHORUS (BEAKER) (test code = 4.4 mg/dL 2.5-4.5 604) Reel Hooker ID - ADMINCBC W/PLT COUNT & AUTO [id number] 05:30:00 Test Item Value Reference Range Interpretation [...] PERCENT (BEAKER) (test code = 2801) POCT-GLUCOSE [id number] 21:49:00 Test Item Value Reference Range Interpretation Comments POC-GLUCOSE METER 95 mg/dL 70-110 : TESTED A T [facility] 1317 (BEAKER) (test code = [address], 1538) [place] [address]: Reel Hooker/Techni tammy ID = [id number] for [address] Jacquie POCT-GLUCOSE [id number] 12:40:00 Test Item Value Reference Range Interpretation Comments POC-GLUCOSE METER 80 mg/dL 70-110 : TESTED A T [facility] 1317 (BEAKER) (test code = [address], 1538) [place] [address]: Reel Hooker/Techni tammy ID = [id number] for Thum an, Berenice HCG, SERUM, [id number] 10:42:00 Test Item Value Reference Range Interpretation Comments TEST SERUM (BEAKER) (test Negative code = 584) POCT-GLUCOSE [id number] 07:56:00 Test Item Value Reference Range Interpretation Comments POC-GLUCOSE METER 105 mg/dL 70-110 : TESTED A T [facility] 1317 (BEAKER) (test code [address], = 1538) [place] [address]: Reel Hooker/Techni tammy ID = [id number] for Mary Adames BASIC METABOLIC [id number] 04:24:00 Test Item Value Reference Range Interpretation [...] S NOT APPLICABLE FOR DIALYSIS PATIEN TS. Reel Hooker ID - ADMINIRON, TIBC, % SAT. (WITHOUT FERRITIN)2020-05-21 04:24:00 Test Item Value Reference Range Interpretation Comments IRON (BEAKER) (test code = 547) 68.0 ug/dL 45.0-170.0 TOTAL IRON BINDING CAPACITY 170 ug/dL 250-550 L (BEAKER) (test code = 769) IRON % SATURATION (2) (BEAKER) 40 % 20-55 (test code = 2590) Reel Hooker ID - [id number] 04:20:00 Test Item Value Reference Range Interpretation Comments MAGNESIUM (BEAKER) (test code = 2.0 mg/dL 1.5-3.0 627) Reel Hooker ID - ADMINPROTHROMBIN [id number] 04:18:00 Test Item Value Reference Range Interpretation Comments PROTIME (BEAKER) (test code = 759) 10.9 sec 9.3-12.0 INR (BEAKER) (test code = 370) 1.00 <=5.90 RECOMMENDED COUMADIN/WARFARIN INR THERAPY RANGESSTANDARD DOSE: 2.0 - 3.0 Includes: PROPHYLAXIS forvenous thrombosis, systemic embolization; TREATMENT for venous thrombosis and/or pulmonary embolus.HIGH RISK: Target INR is 2.5-3.5 for patients with mechanical heart valves.Final Information (Auto Output)Final Information (Auto Output)[id number] 04:18:00 Test Item Value Reference Range Interpretation Comments PARTIAL THROMBOPLASTIN TIME (BEAKER) 27.9 sec 23.0-35.0 (test code = 760) Final Information (Auto Output)[id number] 04:17:00 Test Item Value Reference Range Interpretation Comments PHOSPHORUS (BEAKER) (test code = 6.9 mg/dL 2.5-4.5 H 604) Reel Hooker ID - ADMINVANCOMYCIN LEVEL, [id number] 04:16:00 Test Item Value Reference Range Interpretation Comments VANCOMYCIN RANDOM (BEAKER) (test 13.8 ug/mL code = 523) Reference Range: No NormalsOperator ID - ADMINCBC W/PLT COUNT & AUTO [id number] 04:03:00 Test Item Value Reference Range Interpretation [...] PERCENT (BEAKER) (test code = 2801) POCT-GLUCOSE [id number] 21:19:00 Test Item Value Reference Range Interpretation Comments POC-GLUCOSE METER 118 mg/dL 70-110 H : TESTED A T [facility] 1317 (BEAKER) (test code [address], = 1538) [place] [address]: Reel Hooker/Techni tammy ID = [id number] for Jacquie Vázquez POCT-GLUCOSE [id number] 16:03:00 Test Item Value Reference Range Interpretation Comments POC-GLUCOSE METER 273 mg/dL 70-110 H : TESTED A T [facility] 1317 (BEAKER) (test code [address], = 1538) [place] [address]: Reel Hooker/Techni tammy ID = [id number] for Daryn marcano, Mary POCT-GLUCOSE [id number] 11:32:00 Test Item Value Reference Range Interpretation Comments POC-GLUCOSE METER 224 mg/dL 70-110 H : TESTED A T [facility] 1317 (BEAKER) (test code [address], = 1538) [place] [address]: Reel Hooker/Techni tammy ID = [id number] for Lyndad krys, Mary POCT-GLUCOSE [id number] 07:33:00 Test Item Value Reference Range Interpretation Comments POC-GLUCOSE METER 260 mg/dL 70-110 H : TESTED A T [facility] 1317 (BEAKER) (test code [address], = 1538) [facility] 77 478: Reel Hooker/Techni tammy ID = [id number] for Mray Adames TSH/FREE T4 IF [id number] 07:06:00 Test Item Value Reference Range Interpretation Comments THYROID STIMULATING HORMONE 3.130 uIU/mL 0.350-5.500 (BEAKER) (test code = 772) Reel Hooker ID - ADMINBASIC METABOLIC [id number] 06:52:00 Test Item Value Reference Range Interpretation [...] S NOT APPLICABLE FOR DIALYSIS PATIEN TS. Reel Hooker ID - [id number] 06:49:00 Test Item Value Reference Range Interpretation Comments MAGNESIUM (BEAKER) 1.9 mg/dL 1.5-3.0 Specimen slightly (test code = 627) hemolyzed Reel Hooker ID - [id number] 06:46:00 Test Item Value Reference Range Interpretation Comments PHOSPHORUS (BEAKER) 6.2 mg/dL 2.5-4.5 H Specimen slightly (test code = 604) hemolyzed Reel Hooker ID - ADMINCBC W/PLT COUNT & AUTO [id number] 05:25:00 Test Item Value Reference Range Interpretation [...] PERCENT (BEAKER) (test code = 2801) POCT-GLUCOSE [id number] 22:13:00 Test Item Value Reference Range Interpretation Comments POC-GLUCOSE METER 318 mg/dL 70-110 H : TESTED A T [facility] 1317 ([facility]) (test code [address] [facility] [address] [facility], = 1538) [place] [address]: Reel Hooker/Techni tammy ID = [id number] for Elissa Diaz POCT-GLUCOSE [id number] 16:36:00 Test Item Value Reference Range Interpretation Comments POC-GLUCOSE METER 238 mg/dL 70-110 H : Notified RN/MD: TESTED ([facility]) (test code AT [facility] [address] = 1538) [place] [address]: Reel Hooker/Techni tammy ID = [id number] for Cuate Castañeda HEPATITIS B SURFACE [id number] 12:07:00 Test Item Value Reference Range Interpretation Comments HEPATITIS B SURFACE ANTIBODY 9.4 mIU/mL <8.0 H ([facility]) (test code = 647) Reel Hooker ID - TANISHAMAYLINGPOCT-GLUCOSE [id number] 11:31:00 Test Item Value Reference Range Interpretation Comments POC-GLUCOSE METER 170 mg/dL 70-110 H : Notified RN/MD: TESTED ([facility]) (test code AT [facility] [address] = 1538) [place] [address]: Reel Hooker/Techni tammy ID = [id number] for Cuate Castañeda VANCOMYCIN LEVEL, [id number] 09:31:00 Test Item Value Reference Range Interpretation Comments VANCOMYCIN RANDOM (BEAKER) (test 14.3 ug/mL code = 523) Reference Range: No NormalsOperator ID - ADMINBASIC METABOLIC [id number] 08:59:00 Test Item Value Reference Range Interpretation [...] S NOT APPLICABLE FOR DIALYSIS PATIEN TS. Reel Hooker ID - [id number] 08:56:00 Test Item Value Reference Range Interpretation Comments MAGNESIUM (BEAKER) (test code = 1.9 mg/dL 1.5-3.0 627) Reel Hooker ID - [id number] 08:53:00 Test Item Value Reference Range Interpretation Comments PHOSPHORUS (BEAKER) (test code = 4.7 mg/dL 2.5-4.5 H 604) Reel Hooker ID - ADMINCBC W/PLT COUNT & AUTO [id number] 08:51:00 Test Item Value Reference Range Interpretation [...] PERCENT (BEAKER) (test code = 2801) POCT-GLUCOSE [id number] 07:53:00 Test Item Value Reference Range Interpretation Comments POC-GLUCOSE METER 153 mg/dL 70-110 H : Notified RN/MD: TESTED (BEAKER) (test code AT [facility] [address] [place] [address] = 1538) [facility] [address]: Reel Hooker/Techni tammy ID = [id number] for Cuate Castañeda SARS-COV2/RT-PCR ([facility])2020-05-19 00:02:00 Test Item Value Reference Range Interpretation Comments SARS-COV2/RT-PCR (test Negative Not Detected, Negative, code = 5079601) See external report for linked test SARS-COV-2 PERFORMING LAB [facility] (test code = 9518883) Negative result for this test determines that [...] individuals suspected of COVID-19 by their healthcare provider.This test [...] 564(g) of the Act.Fact Sheet for Healthcare Providers:https://www.[employer].com/sites/default/files/product/documents/Fact_Shee z_DM_Egwnqltdk_Znds_UZED-KtK-6.pdfFact Sheet for Healthcare Patients:https://www.[employer].com/sites/default/files/product/ documents/Mcow_Xlzkp_Emnkkboe_Yixy_WCUK-DtB-9.pdfPerforming Laboratory:[facility], [place] [address]FANS-FMGNETW METER 2020-05-18 21:01:00 Test Item Value Reference Range Interpretation Comments POC-GLUCOSE METER 190 mg/dL 70-110 H : TESTED A T [facility] 1317 (BEAKER) (test code [address], = 1538) [place] [address]: Reel Hooker/Techni tammy ID = [id number] for Nehal Patiño HEPATITIS B SURFACE [id number] 20:29:00 Test Item Value Reference Range Interpretation Comments HEPATITIS B SURFACE ANTIGEN (2) Nonreactive Nonreactive (TAINA) (test code = 2585) Reel Hooker ID - ADMINPOCT-GLUCOSE [id number] 16:43:00 Test Item Value Reference Range Interpretation Comments POC-GLUCOSE METER 211 mg/dL 70-110 H : TESTED A T [facility] 1317 ([facility]) (test code [address], = 1538) [facility] 77 478: Reel Hooker/Techni tammy ID = [id number] for Mary Adames MR, EXTREMITY, LOWER, WITHOUT CONTRAST, [id number] 15:44:00Recent amputation for R great toe osteomyelitis/diabetic [...] Tyler Verified Date/Time: 05/18/2020 15:44:11 Reading Location: [facility] Radiology Reading Room POCT-GLUCOSE [id number] 12:55:00 Test Item Value Reference Range Interpretation Comments POC-GLUCOSE METER 169 mg/dL 70-110 H : TESTED A T [facility] 1317 (BEAKER) (test code [address], = 1538) [facility] 77 478: Reel Hooker/Techni tammy ID = [id number] for Mary Adames HEPATIC FUNCTION [id number] 09:20:00 Test Item Value Reference Range Interpretation [...] Specimen slightly (test code = 347) hemolyzed Reel Hooker ID - [id number] 09:20:00 Test Item Value Reference Range Interpretation Comments MAGNESIUM (BEAKER) 3.8 mg/dL 1.5-3.0 H Specimen slightly (test code = 627) hemolyzed Reel Hooker ID - ADMINHEMOGLOBIN [id number] 09:20:00 Test Item Value Reference Range Interpretation Comments HEMOGLOBIN A1C (BEAKER) (test code = 9.4 % 4.3-6.1 H 368) Reel Hooker ID - ADMINBASIC METABOLIC [id number] 09:19:00 Test Item Value Reference Range Interpretation [...] S NOT APPLICABLE FOR DIALYSIS PATIEN TS. Reel Hooker ID - ADMINC-REACTIVE [id number] 09:19:00 Test Item Value Reference Range Interpretation Comments C-REACTIVE PROTEIN (BEAKER) (test 1.17 mg/dL 0.00-0.50 H code = 676) Reel Hooker ID - ADMINVANCOMYCIN LEVEL, [id number] 09:18:00 Test Item Value Reference Range Interpretation Comments VANCOMYCIN TROUGH (BEAKER) (test 15.1 ug/mL 10.0-20.0 code = 522) Reel Hooker ID - ADMINCBC W/PLT COUNT & AUTO [id number] 09:09:00 Test Item Value Reference Range Interpretation [...] PERCENT (BEAKER) (test code = 2801) POCT-GLUCOSE [id number] 08:18:00 Test Item Value Reference Range Interpretation Comments POC-GLUCOSE METER 177 mg/dL 70-110 H : TESTED A T [facility] 1317 (BEAKER) (test code [address], = 1538) [facility] 77 478: Reel Hooker/Techni tammy ID = [id number] for Mond ragon, Mary RAD, CHEST, 1 VIEW, NON [id number] 08:11:00Reason for exam:->shortness of breathShould this be performed at the bedside?->YesFINAL REPORT CLINICAL HISTORY: shortness of breath TECHNIQUE: 1 view of the c hest. COMPARISON: 07/18/2019 IMPRESSION: There are new, mildly prominent interstitial opacities bilaterally. There is no lobar consolidation or significant pleural fluid. There is no cardiomegaly. Surgical clips are seen in the medial left upper arm. Signed: Marychuy Bueno MDReport Verified Date/Time: 08:11:49 Reading Location: [facility] Reading Room Electronically signedby: MARYCHUY BUENO M.D. on 05/18/2020 08:11 AMHEPATITIS B SURF AB, [id number] 18:16:00 Test Item Value Reference Range Interpretation [...] ~~~~~~~~ ~~~~~~~~~~~~~~~ ~~~~~~~~ ~ AG HEPATITIS B [id number] 18:16:00 Test Item Value Reference Range Interpretation Comments AG HEPATITIS B SURFACE (test code = NEGATIVE NONREACTIVE HBSAG) HIV 12 AB [id number] 18:16:00 Test Item Value Reference Range Interpretation Comments HIV 1 2 COMBO AG/AB SCREEN AB/AG NON REACTIVE NONREACTIVE (test code = [id number]) HEPATITIS B SURF AB, [id number] 17:51:00 Test Item Value Reference Range Interpretation Comments HEPATITIS B SURF AB, QUANT (test code mIU/mL = HBSABQ) AG HEPATITIS B [id number] 17:51:00 Test Item Value Reference Range Interpretation Comments AG HEPATITIS B SURFACE (test code = NEGATIVE NONREACTIVE HBSAG) HIV 12 AB [id number] 17:51:00 Test Item Value Reference Range Interpretation Comments HIV 1 2 COMBO AG/AB SCREEN AB/AG NON REACTIVE NONREACTIVE (test code = [id number]) HEPATITIS B SURF AB, [id number] 17:39:00 Test Item Value Reference Range Interpretation Comments HEPATITIS B SURF AB, QUANT (test code mIU/mL = HBSABQ) AG HEPATITIS B [id number] 17:39:00 Test Item Value Reference Range Interpretation Comments AG HEPATITIS B SURFACE (test code = NEGATIVE NONREACTIVE HBSAG) HIV 12 AB [id number] 17:39:00 Test Item Value Reference Range Interpretation Comments HIV 1 2 COMBO AG/AB SCREEN (test code = NONREACTIVE [id number]) GLUCOSE BEDSIDE [id number] 12:00:00 Test Item Value Reference Range Interpretation Comments GLUCOSE BEDSIDE TESTING (test code 136 MG/DL 60-99 H = GLUBED) GLUCOSE BEDSIDE [id number] 21:08:00 Test Item Value Reference Range Interpretation Comments GLUCOSE BEDSIDE TESTING (test code = 84 MG/DL 60-99 N GLUBED) BASIC METABOLIC [id number] 16:40:00 Test Item Value Reference Range Interpretation [...] 9.0 MG/DL 8.4-10.2 N CA) HCG SERUM [id number] 16:40:00 Test Item Value Reference Range Interpretation Comments HCG SERUM QUAL (test code = HCGQL) NEGATIVE NEGATIVE A PROTHROMBIN [id number] 16:32:00 Test Item Value Reference Range Interpretation [...] sunshine embolism. 3.0 - 4.5 Comments to Behavioral Health Associate: PREOPPTT [id number] 16:32:00 Test Item Value Reference Range Interpretation Comments PTT ACTIVATED (test code = APTT) 30.3 SECONDS 22.0-33.0 N Comments to Behavioral Health Associate: PREOPBASIC METABOLIC [id number] 16:32:00 Test Item Value Reference Range Interpretation [...] code = CA) MG/DL 8.7-9.7 HCG SERUM [id number] 16:32:00 Test Item Value Reference Range Interpretation Comments HCG SERUM QUAL (test code = HCGQL) NEGATIVE NEGATIVE A BASIC METABOLIC [id number] 16:31:00 Test Item Value Reference Range Interpretation [...] code = CA) MG/DL 8.7-9.7 HCG SERUM [id number] 16:31:00 Test Item Value Reference Range Interpretation Comments HCG SERUM QUAL (test code = HCGQL) NEGATIVE CBC W/AUTO [id number] 16:25:00 Test Item Value Reference Range Interpretation [...] 0.00 K/mm3 0.0-0.1 N NRBC#) GLUCOSE BEDSIDE [id number] 18:41:00 Test Item Value Reference Range Interpretation Comments GLUCOSE BEDSIDE TESTING (test code = 83 MG/DL 60-99 N GLUBED) BASIC METABOLIC [id number] 15:04:00 Test Item Value Reference Range Interpretation [...] 9.1 MG/DL 8.4-10.2 N CA) BASIC METABOLIC [id number] 15:00:00 Test Item Value Reference Range Interpretation [...] code = CA) MG/DL 8.7-9.7 HCG SERUM [id number] 14:59:00 Test Item Value Reference Range Interpretation Comments HCG SERUM QUAL (test code = HCGQL) NEGATIVE NEGATIVE A PROTHROMBIN [id number] 14:56:00 Test Item Value Reference Range Interpretation [...] syste sunshine embolism. 3.0 - 4.5 PTT [id number] 14:56:00 Test Item Value Reference Range Interpretation Comments PTT ACTIVATED (test code = APTT) 27.9 SECONDS 22.0-33.0 N CBC W/AUTO [id number] 14:43:00 Test Item Value Reference Range Interpretation [...] N NRBC#) RAD, CHEST, 1 VIEW, NON [id number] 11:27:00Reason for exam:->r/o pneumoniaShould this be performed [...] MDReport Verified Date/Time: 07/18/2019 11:27:35 Reading Location: [facility]iology Reading Room POCT-GLUCOSE [id number] 08:34:00 Test Item Value Reference Range Interpretation Comments POC-GLUCOSE METER 126 mg/dL 70-110 H : TESTED A T [facility] 6720 (BEAKER) (test code = [address] [place], 1538) [address]: Reel Hooker/Techni tammy ID = [id number] for Raymond Baldomero travis BASIC METABOLIC [id number] 06:56:00 Test Item Value Reference Range Interpretation [...] S NOT APPLICABLE FOR DIALYSIS PATIEN TS. [id number] 06:45:00 Test Item Value Reference Range Interpretation Comments PHOSPHORUS (BEAKER) (test code = 4.6 mg/dL 2.3-4.7 604) [id number] 06:45:00 Test Item Value Reference Range Interpretation Comments MAGNESIUM (BEAKER) (test code = 2.0 mg/dL 1.6-2.6 627) CBC W/PLT COUNT & AUTO [id number] 05:35:00 Test Item Value Reference Range Interpretation [...] PERCENT (BEAKER) (test code = 2801) PROTHROMBIN [id number] 05:24:00 Test Item Value Reference Range Interpretation [...] is2.5-3.5 for patients wiht mechanical heart valves.POCT-GLUCOSE [id number] 21:08:00 Test Item Value Reference Range Interpretation Comments POC-GLUCOSE METER 191 mg/dL 70-110 H : TESTED A T [facility] 6720 (BEAKER) (test code = [facility], 1538) [address]: Reel Hooker/Techni tammy ID = [id number] for Keith Quintero POCT-GLUCOSE [id number] 17:20:00 Test Item Value Reference Range Interpretation Comments POC-GLUCOSE METER 168 mg/dL 70-110 H : TESTED A T [facility] 6720 (BEAKER) (test code = [facility], 1538) [address]: Reel Hooker/Techni tammy ID = [id number] for HU NT, MAVIS POCT-GLUCOSE [id number] 12:49:00 Test Item Value Reference Range Interpretation Comments POC-GLUCOSE METER 221 mg/dL 70-110 H : TESTED A T [facility] 6720 (BEAKER) (test code = [facility], 1538) [address]: Reel Hooker/Techni tammy ID = [id number] for HU NT, MAVIS SCREEN, [id number] 11:54:00 Test Item Value Reference Range Interpretation Comments TEST URINE (BEAKER) (test Negative code = 583) POCT-GLUCOSE [id number] 09:11:00 Test Item Value Reference Range Interpretation Comments POC-GLUCOSE METER 112 mg/dL 70-110 H : TESTED A T [facility] 6720 (BEAKER) (test code = [facility], 1538) [address]: Reel Hooker/Techni tammy ID = [id number] for HU NT, MAVIS BASIC METABOLIC [id number] 06:50:00 Test Item Value Reference Range Interpretation [...] S NOT APPLICABLE FOR DIALYSIS PATIEN TS. [id number] 06:38:00 Test Item Value Reference Range Interpretation Comments PHOSPHORUS (BEAKER) (test code = 3.9 mg/dL 2.3-4.7 604) [id number] 06:38:00 Test Item Value Reference Range Interpretation Comments MAGNESIUM (BEAKER) (test code = 1.9 mg/dL 1.6-2.6 627) PROTHROMBIN [id number] 06:12:00 Test Item Value Reference Range Interpretation [...] mechanical heart valves.CBC W/PLT COUNT & AUTO [id number] 06:06:00 Test Item Value Reference Range Interpretation [...] 0-1 PERCENT (BEAKER) (test code = 2801) [id number] 04:27:00 Test Item Value Reference Range Interpretation Comments RPR SCREEN (BEAKER) (test code = Nonreactive Nonreactive 420) MR, MRA, BRAIN, WITHOUT [id number] 03:28:00Reason for exam:- >StrokeWhat is the patient's [...] 07/17/2019 03:28:33 MR, MRA, NECK, WITHOUT IV [id number] 03:28:00FINAL REPORT MR, BRAIN, WITHOUT CONTRAST, MR, [...] Verified Date/Time: 07/17/2019 03:28:33 MR, BRAIN, WITHOUT [id number] 03:28:00 Reason for exam:->StrokeWhat is the patient's [...] Ortiz MDReport Verified Date/Time: 07/17/2019 03:28:33 POCT-GLUCOSE [id number] 21:16:00 Test Item Value Reference Range Interpretation Comments POC-GLUCOSE METER 143 mg/dL 70-110 H : TESTED A T [facility] 6720 (BEAKER) (test code = [place], 1538) [address]: Reel Hooker/Techni tammy ID = [id number] for JANELL GEORGE POCT-GLUCOSE [id number] 17:33:00 Test Item Value Reference Range Interpretation Comments POC-GLUCOSE METER 108 mg/dL 70-110 : TESTED A T [facility] 6720 (BEAKER) (test code = [facility], 1538) [address]: Reel Hooker/Techni tammy ID = [id number] for TAVON DUVALL POCT-GLUCOSE [id number] 17:25:00 Test Item Value Reference Range Interpretation Comments POC-GLUCOSE METER 155 mg/dL 70-110 H : TESTED A T [facility] 6720 (BEAKER) (test code = [facility], 1538) 150[address]: Reel Hooker/Techni tammy ID = [id number] for SIMON CHO HEPATITIS B SURFACE [id number] 14:30:00 Test Item Value Reference Range Interpretation Comments HEPATITIS B SURFACE ANTIGEN (2) Nonreactive Nonreactive (BEAKER) (test code = 2585) POCT-GLUCOSE [id number] 12:17:00 Test Item Value Reference Range Interpretation Comments POC-GLUCOSE METER 146 mg/dL 70-110 H : TESTED A T [facility] 6720 (BEAKER) (test code = [facility], 1538) [address]: Reel Hooker/Techni tammy ID = [id number] for MAVIS GARRIDO BASIC METABOLIC [id number] 09:26:00 Test Item Value Reference Range Interpretation [...] NOT APPLICABLE FOR DIALYSIS PATIEN TS. POCT-GLUCOSE [id number] 08:27:00 Test Item Value Reference Range Interpretation Comments POC-GLUCOSE METER 106 mg/dL 70-110 : TESTED A T [facility] 6720 (BEAKER) (test code = [place] [facility], 1538) [address]: Reel Hooker/Techni tammy ID = [id number] for SIMON CHO POCT-GLUCOSE [id number] 07:46:00 Test Item Value Reference Range Interpretation Comments POC-GLUCOSE METER 171 mg/dL 70-110 H : TESTED A T [facility] 6720 (BEAKER) (test code [facility], = 1538) [address]: Reel Hooker/Techni atmmy ID = [id number] for YASMINE VO RAD, CHEST, 1 VIEW, NON [id number] 07:36:00Reason for exam:- >baselineShould this be performed [...] MDReport Verified Date/Time: 07/16/2019 07:36:01 Reading Location: [facility] B1 C013Y CT Body Reading Room HEMOGLOBIN [id number] 06:42:00 Test Item Value Reference Range Interpretation Comments HEMOGLOBIN A1C (BEAKER) (test code = 9.5 % 4.3-6.1 H 368) BASIC METABOLIC [id number] 06:27:00 Test Item Value Reference Range Interpretation [...] DIALYSIS PATIEN TS. HIV-1 ANTIGEN WITH HIV-1/2 [id number] 05:52:00 Test Item Value Reference Range Interpretation Comments HIV-1 ANTIGEN WITH HIV 1\\T\\2 Nonreactive Nonreactive ANTIBODY (2) (BEAKER) (test code = 2586) POCT-GLUCOSE [id number] 05:38:00 Test Item Value Reference Range Interpretation Comments POC-GLUCOSE METER 420 mg/dL 70-110 HH : Notified RN/MD: TESTED (BEAKER) (test code AT [facility] [address] = 1538) [facility], [facility] 30: Reel Hooker/Techni tammy ID = [id number] for HUGH Farah ANHMICHELLE TSH/FREE T4 IF [id number] 05:11:00 Test Item Value Reference Range Interpretation Comments THYROID STIMULATING HORMONE 0.87 uIU/mL 0.35-4.94 (BEAKER) (test code = 772) VITAMIN B12 AND [id number] 05:11:00 Test Item Value Reference Range Interpretation Comments VITAMIN B12 (BEAKER) (test code = 525 pg/mL 213-816 774) FOLATE (BEAKER) (test code = 362) 6.5 ng/mL >=7.0 L BASIC METABOLIC [id number] 04:57:00 Test Item Value Reference Range Interpretation [...] S NOT APPLICABLE FOR DIALYSIS PATIEN TS. [id number] 04:47:00 Test Item Value Reference Range Interpretation Comments PHOSPHORUS (BEAKER) (test code = 5.5 mg/dL 2.3-4.7 H 604) [id number] 04:47:00 Test Item Value Reference Range Interpretation Comments MAGNESIUM (BEAKER) (test code = 2.0 mg/dL 1.6-2.6 627) LIPID [id number] 04:47:00 Test Item Value Reference Range Interpretation [...] 130-159 High 160-189 Very High >=190HEPATIC FUNCTION [id number] 04:47:00 Test Item Value Reference Range Interpretation [...] = 99 U/L 6-55 H 347) PROTHROMBIN [id number] 04:11:00 Test Item Value Reference Range Interpretation [...] mechanical heart valves.CBC W/PLT COUNT & AUTO [id number] 04:03:00 Test Item Value Reference Range Interpretation [...] PERCENT (BEAKER) (test code = 2801) POCT-GLUCOSE [id number] 03:47:00 Test Item Value Reference Range Interpretation Comments POC-GLUCOSE METER > mg/dL 70-110 HH : Notified RN/MD: TESTED (BEAKER) (test code = AT [facility] 6720 [facility] 1538) [facility], [facility] 30: Reel Hooker/Techni tammy ID = [id number] for SYLVIA JONES FACTOR 5 LEIDEN PCR (THROMBOTIC RISK)2017-03-24 19:24:00 Test Item Value Reference Range Interpretation Comments FACTOR V LEIDEN Negative for the R506Q (BEAKER) (test code = (Factor V Leiden) 718) mutation [id number] Martínez Wang MD ([facility]) (test code = (electronic signature) 7299) This test is a genotyping assay which [...] and its performance characteristics determined [facility], Section of Molecular Pathology. It has not been cleared or approved by the U.S. Food and Drug Administration (FDA), since FDA approval is not requ ired for clinical use of the test. Validation was done as required by the Clinical Laboratory Improvement Amendments of 1988.POCT-GLUCOSE [id number] 07:28:00 Test Item Value Reference Range Interpretation Comments POC-GLUCOSE METER 200 mg/dL 70-110 H TESTED AT [place] [address] ([facility]) (test code = [facility] 1538) [address] POCT-GLUCOSE [id number] 21:18:00 Test Item Value Reference Range Interpretation Comments POC-GLUCOSE METER 211 mg/dL 70-110 H TESTED AT [place] [address] ([facility]) (test code = [facility] 1538) [address] PROTEIN, RANDOM [id number] 19:43:00 Test Item Value Reference Range Interpretation Comments PROTEIN, URINE ([facility]) (test code 286 mg/dL 0-14 H = 1569) CREATININE, RANDOM [id number] 18:27:00 Test Item Value Reference Range Interpretation Comments CREATININE URINE ([facility]) (test 29.3 mg/dL code = 375) Reference Range: No NormalsDILUTE SHIRA VIPER VENOM (DRVV)2017-03-19 12:47:00 Test Item Value Reference Range Interpretation Comments PROTIME ([facility]) (test 11.3 seconds 11.7-14.7 L code = 759) INR ([facility]) (test code 0.8 <=5.9 = 370) PARTIAL THROMBOPLASTIN 28.0 seconds 22.5-36.0 TIME ([facility]) (test code = 760) DRVV INTERPRETATION Normal DRVV Results (BEAKER) (test code = 2406) DRVV INTERPRETATION Normal Hexagonal (BEAKER) (test code = Phospholipid 566866) [id number] Martínez Wang MD ([facility]) (test code = (electronic 2610) signature) DRVV SCREEN RATIO 0.84 <1.20 (BEAKER) (test code = 2707) Effective 12/20/2013: Test Method ChangeDRVV Screen Ratio, DRVV 1/1 Screen Ratio, DRVV Confirm Ratio,DRVV Normalized Ratio Reference Range: <1.2Protime Reference Range ChangeNew: 11.7-14.7 Previous: 9.8-12.0PTT Reference Range ChangeNew: 22.5-36.0 Previous: 25.8-34.5URINE [id number] 11:40:00 Test Item Value Reference Range Interpretation Comments CULTURE ([facility]) (test 20-29,000 col/mL skin code = 1095) lei POCT-GLUCOSE [id number] 08:33:00 Test Item Value Reference Range Interpretation Comments POC-GLUCOSE METER 293 mg/dL 70-110 H TESTED AT [facility] 6720 ([facility]) (test code = [place] 1538) [address] VITAMIN D, [id number] 07:49:00 Test Item Value Reference Range Interpretation Comments VITAMIN D 25-OH ([facility]) (test code = < ng/mL 13.0-47.8 L 2764) CBC W/PLT COUNT & AUTO [id number] 05:59:00 Test Item Value Reference Range Interpretation [...] (BEAKER) (test code = 2801) BASIC METABOLIC [id number] 05:38:00 Test Item Value Reference Range Interpretation [...] mg/dL 8.4-10.2 (test code = 697) EGFR (AKER) (test 27 mL/min/1.73 ESTIMA NHAN GFR IS code = 1092) sq m NOT ACCURATE CREATININE CLEARANCE IN PREDICTING GLOMERULAR FILTRATION RATE . ESTIMATED GFR I S NOT APPLICABLE FOR DIALYSIS PATIEN TS. [id number] 05:37:00 Test Item Value Reference Range Interpretation Comments PHOSPHORUS (BEAKER) (test code = 4.1 mg/dL 2.3-4.7 604) [id number] 05:37:00 Test Item Value Reference Range Interpretation Comments MAGNESIUM (BEAKER) (test code = 1.7 mg/dL 1.6-2.6 627) PTH, [id number] 05:34:00 Test Item Value Reference Range Interpretation Comments PARATHYROID HORMONE INTACT 57.2 pg/mL 8.5-72.5 ([employer]) (test code = 577) Effective 07/04/2014: Reference Range ChangeNew: 8.5-72.5 Previous: 15.0-90.0 CARDIOLIPIN ANTIBODIES, IGG AND [id number] 22:36:00 Test Item Value Reference Range Interpretation Comments ANTICARDIOLIPIN IGG ANTIBODY (National Institutes of Health (NIH)) < GPL (test code = 712) ANTICARDIOLIPIN IGM ANTIBODY ([employer]) 2.8 MPL (test code = 713) Anticardiolipin IgG Result Interpretation:NEG: <20 GPL; U/mlPOS: >/=20 GPL; U/mlAnticardiolipin IgM Result Interpretation:NEG: <20 MPL; U/mlPOS: >/=20 MPL; U/mlPOCT-GLUCOSE [id number] 21:25:00 Test Item Value Reference Range Interpretation Comments POC-GLUCOSE METER 198 mg/dL 70-110 H TESTED AT [facility] 6720 ([facility]) (test code = [place] [place] 1538) [address] POCT-GLUCOSE [id number] 16:29:00 Test Item Value Reference Range Interpretation Comments POC-GLUCOSE METER 296 mg/dL 70-110 H TESTED AT [facility] 6720 ([facility]) (test [facility] = [facility] [place] 1538) [address] ANTI-NUCLEAR ANTIBODY (MARY)2017-03-18 15:30:00 Test Item Value Reference Range Interpretation Comments ANTI-NUCLEAR ANTIBODY (MARY) (BEAKER) Negative Negative (test code = 418) HEXAGONAL [id number] 13:21:00 Test Item Value Reference Range Interpretation Comments HEXAGONAL PHOSPHOLIPID (BEAKER) Negative (test code = 1790) POCT-GLUCOSE [id number] 12:15:00 Test Item Value Reference Range Interpretation Comments POC-GLUCOSE METER 140 mg/dL 70-110 H TESTED AT [place] [address] ([facility]) (test code = [facility] Isabel [facility] 1538) [address] PROTEIN C [id number] 11:44:00 Test Item Value Reference Range Interpretation Comments PROTEIN C ACTIVITY (BEAKER) (test 155.0 % 70.0-130.0 H code = 582) Effective 12/20/2013: Reference Range Change-Adult onlyNew: 70.0-130.0 Previous: 70.0-140.0See Protein C Antigen.ANTITHROMBIN [id number] 11:43:00 Test Item Value Reference Range Interpretation Comments ANTITHROMBIN III ACTIVITY (BEAKER) 87.0 % 80.0-120.0 (test code = 711) Effective 12/20/2013: Reference Range Change-Adult onlyNew: 80.0-120.0 Previous: 90.0-128.0POCT-GLUCOSE [id number] 08:17:00 Test Item Value Reference Range Interpretation Comments POC-GLUCOSE METER 107 mg/dL 70-110 TESTED AT [place] [address] (BEAKER) (test code = [facility] Isabel [facility] 1538) [address] BASIC METABOLIC [id number] 06:32:00 Test Item Value Reference Range Interpretation [...] PATIEN TS. CBC W/PLT COUNT & AUTO [id number] 05:56:00 Test Item Value Reference Range Interpretation [...] PERCENT (BEAKER) (test code = 2801) POCT-GLUCOSE [id number] 04:32:00 Test Item Value Reference Range Interpretation Comments POC-GLUCOSE METER 107 mg/dL 70-110 TESTED AT [place] [address] ([facility]) (test code = [place] [facility] 1538) [address] POCT-GLUCOSE [id number] 22:21:00 Test Item Value Reference Range Interpretation Comments POC-GLUCOSE METER 118 mg/dL 70-110 H TESTED AT [place] [address] ([facility]) (test code = [place] [facility] 1538) [address] POCT-GLUCOSE [id number] 21:22:00 Test Item Value Reference Range Interpretation Comments POC-GLUCOSE METER 52 mg/dL 70-110 L Notified R Jia REYNOSO/TESTED AT ([facility]) (test code = [place] 996168) [facility] 7[address] MICROALBUMIN, RANDOM [id number] 17:57:00 Test Item Value Reference Range Interpretation Comments MICROALBUMIN URINE (AKER) (test > mg/dL code = 1794) Reference Range: No NormalsURINALYSIS W/ [id number] 17:36:00 Test Item Value Reference Range Interpretation [...] 516) SOURCE(BEAKER) (test code = Urine, Voided 6738) SCREEN, [id number] 17:36:00 Test Item Value Reference Range Interpretation Comments TEST URINE (BEAKER) (test Negative code = 583) CREATININE, RANDOM [id number] 17:35:00 Test Item Value Reference Range Interpretation Comments CREATININE URINE (BEAKER) (test 33.9 mg/dL code = 375) Reference Range: No NormalsSODIUM, RANDOM [id number] 17:35:00 Test Item Value Reference Range Interpretation Comments SODIUM URINE (BEAKER) (test code = 63 meq/L 243) Reference Range: No NormalsPOCT-GLUCOSE [id number] 17:34:00 Test Item Value Reference Range Interpretation Comments POC-GLUCOSE METER 118 mg/dL 70-110 H TESTED AT [place] [address] ([facility]) (test code = [place] [facility] 1538) [id number] POCT-GLUCOSE [id number] 13:28:00 Test Item Value Reference Range Interpretation Comments POC-GLUCOSE METER 71 mg/dL 70-110 TESTED AT [place] [id number] ([facility]) (test code = [place] [facility] [address] 1538) POCT-GLUCOSE [id number] 10:37:00 Test Item Value Reference Range Interpretation Comments POC-GLUCOSE METER 144 mg/dL 70-110 H TESTED AT [facility] 6720 (BEAKER) (test code = [place] 1538) [id number] POCT-GLUCOSE [id number] 07:18:00 Test Item Value Reference Range Interpretation Comments POC-GLUCOSE METER 60 mg/dL 70-110 L TESTED AT [facility] 6720 (BEAKER) (test code = [place] [address] 1538) CBC W/PLT COUNT & AUTO [id number] 05:51:00 Test Item Value Reference Range Interpretation [...] (BEAKER) (test code = 2801) BASIC METABOLIC [id number] 05:51:00 Test Item Value Reference Range Interpretation [...] NOT APPLICABLE FOR DIALYSIS PATIEN TS. POCT-GLUCOSE [id number] 21:41:00 Test Item Value Reference Range Interpretation Comments POC-GLUCOSE METER 287 mg/dL 70-110 H TESTED AT [facility] 6720 (BEAKER) (test code = [place] 9358) [address] BASIC METABOLIC [id number] 12:35:00 Test Item Value Reference Range Interpretation [...] report . CBC W/PLT COUNT & AUTO [id number] 04:54:00 Test Item Value Reference Range Interpretation [...] 0-1 PERCENT (BEAKER) (test code = 2801) [id number] 20:17:00 Test Item Value Reference Range Interpretation Comments RPR SCREEN (BEAKER) (test code = Nonreactive Nonreactive 420) POCT-GLUCOSE [id number] 18:09:00 Test Item Value Reference Range Interpretation Comments POC-GLUCOSE METER 215 mg/dL 70-110 H TESTED AT [facility] 6720 (BEAKER) (test code = [place] 1538) [address] CBC W/PLT COUNT & AUTO [id number] 11:54:00 Test Item Value Reference Range Interpretation [...] (BEAKER) (test code = Normal 762) SEDIMENTATION [id number] 10:27:00 Test Item Value Reference Range Interpretation Comments SEDIMENTATION RATE, ERYTHROCYTE 79 mm/HR 0-20 H (BEAKER) (test code = 766) HEMOGLOBIN [id number] 09:33:00 Test Item Value Reference Range Interpretation Comments HEMOGLOBIN A1C (BEAKER) (test code = 9.8 % 4.3-6.1 H 368) VITAMIN [id number] 09:14:00 Test Item Value Reference Range Interpretation Comments VITAMIN B12 (BEAKER) (test code = 1790 pg/mL 213-816 H 774) TSH/FREE T4 IF [id number] 09:14:00 Test Item Value Reference Range Interpretation Comments THYROID STIMULATING HORMONE 1.08 uIU/mL 0.35-4.94 (BEAKER) (test code = 772) BASIC METABOLIC [id number] 08:52:00 Test Item Value Reference Range Interpretation [...] DATA TO CALCULA TE ESTIMATED GFR. FastingLIPID [id number] 08:51:00 Test Item Value Reference Range Interpretation [...] High 160-189 Very High >=190 FastingHCG, QUANTITATIVE, [id number] 01:43:00 Test Item Value Reference Range Interpretation Comments GONADOTROPIN, CHORIONIC (HCG) QUANT < mIU/mL 0-10 (BEAKER) (test code = 649) Non- Females: <10 mIU/mL Females: Gestation Age Reference Range(mIU/mL) 0.2-1 Week 5-50 1-2 Weeks 50-500 2-3 Weeks 100-5,000 3-4Weeks 500-10,000 4-5 Weeks 1,000-50,000 5-6 Weeks 10,000-100,000 6-8 Weeks 15,000-200,000 2-3 Months 10,000-100,000COMPREHENSIVE METABOLIC [id number] 21:57:00 Test Item Value Reference Range Interpretation [...] U/L 6-55 (test code = 347) EGFR ([facility]) (test mL/min/1.73 INSUFFIC IENT code = 1092) sq m CLINICAL DATA T O CALCULATE ESTIM ATED GFR. Unit CollectPOCT-GLUCOSE [id number] 21:50:00 Test Item Value Reference Range Interpretation Comments POC-GLUCOSE METER 278 mg/dL 70-110 H TESTED AT [facility] 6720 ([facility]) (test code = [place] 1538) [address]
[2021-08-23 15:38] LABS: Absolute Lymphocytes (CBC) 1.1 K/uL (0.7-4.9); Hematocrit 40.3 % (36.0-45.0); Lymphocytes % 15.9 % (15.3-44.8); MPV 7.1 fL (7.6-11.3); RBC Red Blood Cell Count 4.19 M/uL (3.86-4.86)
--- NOTE | 2021-08-23 16:10 | RAD REPORT ---
EXAM DESCRIPTION: RAD - Chest Single View - 08/23/2021 3:56 pm CLINICAL HISTORY: CHEST PAIN COMPARISON: Chest Single View dated 05/25/2021; Abdomen 1 View (KUB) dated 08/24/2020; Chest Single Vie w dated 07/05/2020; Chest Single View dated 05/17/2020 FINDINGS: Lines: None. Lungs: No evidence of edema or pneumonia. Pleural: No significant pleural effusions or pneumothorax. Cardiac: The heart size is within normal limits. Bones: No acute fractures. Other: IMPRESSION: No acute cardiopulmonary disease.
[2021-08-23 16:46] LABS: ALT/SGPT 50 U/L (12-78); AST/SGOT 23 U/L (15-37); Albumin 3.2 g/dL (3.4-5.0); Alkaline Phosphatase 230 U/L (45-117); BUN Blood Urea Nitrogen 66 mg/dL (7-18); Bicarbonate 25 mmol/L (21-32); Bilirubin Direct 0.2 mg/dL (0-0.2); Bilirubin Total 0.8 mg/dL (0.2-1.0); Glucose Level 199 mg/dL (74-106); Magnesium 2.8 mg/dL (1.8-2.4); NT PRO-BNP 6107 pg/mL (<125); Potassium 3.7 mmol/L (3.5-5.1); Protein, Total 8.3 g/dL (6.4-8.2); Sodium Level 133 mmol/L (136-145); Troponin (Emerg Dept Use Only) < 0.02 ng/mL (0.0-0.045)
[2021-08-23 16:56] LABS: Protime INR 0.92
--- NOTE | 2021-08-23 17:33 | EDPHYS ---
Physician Documentation [facility] Name: Archana Woo Age: 45 yrs Sex: Female : 1975 Arrival Date: 08/23/2021 Time: 14:55 Bed 24 Private MD: ED Physician Haroldo Ventura HPI: 08/23 15:12 This 45 yrs old Female presents to ER via EMS with complaints of Chest pain. sp3 15:12 45-year-old female with multiple medical problems including diabetes, dialysis Thursday sp3 Thursday, depression, CVA, blindness, who lives at the correction presents to the ED from dialysis while alf through developing chest pain and shortness of breath which have now largely resolved. Patient states that she had diffuse nonspecific chest pain which led to some mild shortness of breath but all of that is now resolved since on the way to the ED in the ambulance. She denies fever and has had a negative COVID test 2 days ago. She also denies headache, neck pain, current shortness of breath, current chest pain, abdominal pain, nausea, vomiting, diarrhea, syncope, neuro symptoms, URI symptoms, or any other findings on review of systems at this time. Remainder of systems are negative.. 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 liu Historical: - Home Meds: 14:59 calcitriol 0.25 mcg Oral cap 1 cap [Active]; docusate sodium 100 mg Oral cap 1 cap once liu daily [Active]; furosemide 80 mg Oral tab 1 tab 2 times per day [Active]; hydralazine 25 mg Oral tab 1 tab 4 times per day [Active]; Hydrocodone-Acetaminophen Oral [Active]; Lantus 100 unit/mL Sub-Q soln 100 unit/mL [Active]; metformin 500 mg Oral tab 1 tab 2 times per day [Active]; - PMHx: 14:59 BLIND; CVA; Depression; Diabetes - NIDDM; DIALYSIS MWF; dialysis W \T\ F; GERD; liu Hyperlipidemia; Hypertension; left arm paralysis; neuropathy; THYROID CANCER; TIA; - Immunization history:: Adult Immunizations up to date. - Social history:: Smoking status: Patient reports the use of cigarette tobacco products, smokes one-half pack cigarettes per day. ROS: 15:14 Constitutional: Negative for fever, chills, and weight loss, Eyes: Negative for injury, sp3 pain, redness, and discharge, ENT: Negative for injury, pain, and discharge, Neck: Negative for injury, pain, and swelling, Abdomen/GI: Negative for abdominal pain, nausea, vomiting, diarrhea, and constipation, Back: Negative for injury and pain, MS/Extremity: Negative for injury and deformity, Skin: Negative for injury, rash, and discoloration, Neuro: Negative for headache, weakness, numbness, tingling, and seizure, Allergy/Immunology: Negative for hives, rash, and allergies, Endocrine: Negative for neck swelling, polydipsia, polyuria, polyphagia, and marked weight changes. 15:14 All other systems are negative. Exam: 15:14 Constitutional: This is a well developed, well nourished patient who is awake, alert, sp3 and in no acute distress. Head/Face: Normocephalic, atraumatic. Eyes: Pupils equal round and reactive to light, extra-ocular motions intact. Lids and lashes normal. Conjunctiva and sclera are non-icteric and not injected. Cornea within normal limits. Periorbital areas with no swelling, redness, or edema. ENT: Nares patent. No nasal discharge, no septal abnormalities noted. External auditory canals are clear. Oropharynx with no redness, swelling, or masses, exudates, or evidence of obstruction, uvula midline. Mucous membranes moist. Neck: Trachea midline, no thyromegaly or masses palpated, and no cervical lymphadenopathy. Supple, full range of motion without nuchal rigidity, or vertebral point tenderness. No Meningismus. Chest/axilla: Normal chest wall appearance and motion. Nontender with no deformity. No lesions are appreciated. Cardiovascular: Regular rate and rhythm with a normal S1 and S2. No gallops, murmurs, or rubs. Normal PMI, no JVD. No pulse deficits. Respiratory: Lungs have equal breath sounds bilaterally, clear to auscultation and percussion. No rales, rhonchi or wheezes noted. No increased work of breathing, no retractions or nasal flaring. Abdomen/GI: Soft, non-tender, with normal bowel sounds. No distension or tympany. No guarding or rebound. No evidence of tenderness throughout. Back: No spinal tenderness. No costovertebral tenderness. Full range of motion. Skin: Warm, dry with normal turgor. Normal color with no rashes, no lesions, and no evidence of cellulitis. MS/ Extremity: Pulses equal, no cyanosis. Neurovascular intact. Full, normal range of motion. Neuro: Awake and alert, GCS 15, oriented to person, place, time, and situation. Cranial nerves II-XII grossly intact. Motor strength 5/5 in all extremities. Sensory grossly intact. Cerebellar exam normal. Normal gait. Psych: Awake, alert, with orientation to person, place and time. Behavior, mood, and affect are within normal limits. 15:16 ECG was reviewed by the Attending Physician. EKG demonstrates normal sinus rhythm at 97 sp3 bpm with a first-degree AV block with a SD interval of 202. QRS is normal, axis is normal, nonspecific ST/T changes with J-point elevation in V2 V3 with no reciprocal changes or any other evidence of ischemia at this time. Vital Signs: 14:58 BP 145 / 72; Pulse 96; Resp 18; Temp 98.1(O); Pulse Ox 95% on R/A; Weight 72.57 kg; liu Height 5 ft. 4 in. (162.56 cm); 14:58 Body Mass Index 27.46 (72.57 kg, 162.56 cm) liu MDM: 14:55 Patient medically screened. sp3 15:14 Data reviewed: vital signs, nurses notes. ED course: 45-year-old female with sp3 nonspecific chest pain which is now resolved. Patient is a dialysis patient and occurred during today's session. I am not highly suspicious for acute coronary syndrome, PE, infectious process, thoracic aneurysm, thoracic dissection, reflux, or any other critical findings at this time. Patient is well-appearing and in no acute distress. If work-up is negative will discharge patient home at this time.. 17:31 ED course: Patient resting comfortably no acute distress with no shortness of breath or sp3 chest pain at this time. BNP is elevated but I believe is at baseline for her. She did have most of her dialysis today. Will have dialysis again on Thursday. We will discharge patient home at this time back to the correction.. 08/23 14:56 Order name: Basic Metabolic Panel sp3 08/23 14:56 Order name: CBC with Diff sp3 08/23 14:56 Order name: LFT's sp3 08/23 14:56 Order name: Magnesium sp3 08/23 14:56 Order name: NT PRO-BNP; Complete Time: 17:29 sp3 08/23 14:56 Order name: PT-INR; Complete Time: 17:29 sp3 08/23 14:56 Order name: Troponin (emerg Dept Use Only); Complete Time: 17:29 sp3 08/23 14:56 Order name: XRAY Chest (1 view); Complete Time: 16:23 sp3 08/23 14:56 Order name: EKG; Complete Time: 14:56 sp3 08/23 14:56 Order name: Cardiac monitoring; Complete Time: 15:01 sp3 08/23 14:56 Order name: Basic Metabolic Panel; Complete Time: 17:29 EDMS 08/23 14:56 Order name: CBC with Automated Diff; Complete Time: 15:57 EDMS 08/23 14:56 Order name: Liver (Hepatic) Function; Complete Time: 17:29 EDMS 08/23 14:56 Order name: Magnesium; Complete Time: 17:29 EDMS 08/23 14:56 Order name: EKG - Nurse/Tech; Complete Time: 15:19 sp3 08/23 14:56 Order name: IV Saline Lock; Complete Time: 17:21 sp3 08/23 14:56 Order name: Labs collected and sent; Complete Time: 17:21 sp3 08/23 14:56 Order name: O2 Per Protocol; Complete Time: 17:23 sp3 08/23 14:56 Order name: O2 Sat Monitoring sp3 08/23 15:42 Order name: Labs - recollect needed: recollect blue and green tube; Complete Time: 17:21eb Administered Medications: No medications were administered Disposition Summary: 08/23/21 17:32 Discharge Ordered Location: Home sp3 Condition: Stable sp3 Diagnosis - Nonspecific chest pain, dyspnea now resolved sp3 Followup: sp3 - With: Private Physician - When: - Reason: Recheck today's complaints Discharge Instructions: - Discharge Summary Sheet sp3 - Nonspecific Chest Pain, Adult sp3 Forms: - Medication Reconciliation Form sp3 - Thank You Letter sp3 - Antibiotic Education sp3 - Prescription Opioid Use sp3 Signatures: Dispatcher [employer] EDNC Michelle Seay Setul MD MD sp3 Colette-Brunor, Joanna, RN RN liu
--- NOTE | 2021-08-23 17:33 | ER ---
Nurse's Notes [facility] Name: Archana Woo Age: 45 yrs Sex: Female : 1975 Arrival Date: 08/23/2021 Time: 14:55 Bed 24 Private MD: Diagnosis: Nonspecific chest pain, dyspnea now resolved Presentation: 08/23 14:58 Chief complaint: Patient states: chest pain and sob during dialysis. Coronavirus liu screen: Vaccine status: Patient reports receiving the 2nd dose of the covid vaccine. Ebola Screen: Patient denies travel to an Ebola-affected area in the 21 days before illness onset. Initial Sepsis Screen: Does the patient meet any 2 criteria? No. Patient's initial sepsis screen is negative. Does the patient have a suspected source of infection? No. Patient's initial sepsis screen is negative. Risk Assessment: Do you want to hurt yourself or someone else? Patient reports no desire to harm self or others. Onset of symptoms was August 23, 2021. 14:58 Method Of Arrival: EMS: [facility] 14:58 Acuity: TARUN 3 liu Triage Assessment: 15:01 General: Appears Behavior is calm, cooperative. 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 - control method liu Historical: - Home Meds: 14:59 calcitriol 0.25 mcg Oral cap 1 cap [Active]; docusate sodium 100 mg Oral cap 1 cap once liu daily [Active]; furosemide 80 mg Oral tab 1 tab 2 times per day [Active]; hydralazine 25 mg Oral tab 1 tab 4 times per day [Active]; Hydrocodone-Acetaminophen Oral [Active]; Lantus 100 unit/mL Sub-Q soln 100 unit/mL [Active]; metformin 500 mg Oral tab 1 tab 2 times per day [Active]; - PMHx: 14:59 BLIND; CVA; Depression; Diabetes - NIDDM; DIALYSIS MWF; dialysis W \T\ F; GERD; liu Hyperlipidemia; Hypertension; left arm paralysis; neuropathy; THYROID CANCER; TIA; - Immunization history:: Adult Immunizations up to date. - Social history:: Smoking status: Patient reports the use of cigarette tobacco products, smokes one-half pack cigarettes per day. Screenin:00 Abuse screen: Denies threats or abuse. Denies injuries from another. Nutritional liu screening: No deficits noted. Tuberculosis screening: No symptoms or risk factors identified. Fall Risk IV access (20 points). Assessment: 15:00 Pain: Denies pain. liu 18:38 Reassessment: from 1756 to 1823 attempted 3 times to call [facility] to give liu report for pt returning to facility. continued to get refusal to except report. faxed clinical over [phone] around 175. EMS transferred pt back to facility. Vital Signs: 14:58 BP 145 / 72; Pulse 96; Resp 18; Temp 98.1(O); Pulse Ox 95% on R/A; Weight 72.57 kg; liu Height 5 ft. 4 in. (162.56 cm); 14:58 Body Mass Index 27.46 (72.57 kg, 162.56 cm) liu ED Course: 14:55 Patient arrived in ED. 14:55 Haroldo Ventura MD is Attending Physician. sp3 14:59 Triage completed. liu 15:00 Patient has correct armband on for positive identification. Bed in low position. liu 15:00 No provider procedures requiring assistance completed. liu 15:01 Arm band placed on. liu 15:56 XRAY Chest (1 view) In Process Unspecified. EDMS 17:21 Basic Metabolic Panel Sent. liu 17:21 CBC with Diff Sent. liu 17:21 LFT's Sent. liu 17:21 Magnesium Sent. liu 18:02 Inserted saline lock: 20 gauge in right hand, using aseptic technique. IV discontinued, liu intact, Pressure dressing applied. Administered Medications: No medications were administered Outcome: 17:32 Discharge ordered by . sp3 18:02 Discharged to care home. liu 18:02 Condition: good 18:02 Discharge instructions given to patient, EMS. 18:43 Patient left the ED. liu Signatures: Dispatcher [employer] EDMay Nava RN RN Haroldo Ventura MD MD sp3 Colette-BrunorJoanna RN RN
[2021-08-23 19:30] VITALS: BP 145/72; TEMP 98.1; O2SAT 95
--- NOTE | 2021-08-24 13:48 | EKG ---
Test Date: 2021-08-23 Test Time: 15:11:23 Insights Strategist: CINDY MEASUREMENT RESULTS: Intervals: Rate: 97 HI: 202 QRSD: 80 QT: 384 QTc: 487 [place]: P: 88 HI: 202 QRS: 22 T: 97 INTERPRETIVE STATEMENTS: Normal sinus rhythm Septal infarct, age undetermined Abnormal ECG Compared to ECG 05/25/2021 11:55:28 Myocardial infarct finding now present T-wave abnormality no longer present Electronically Signed On 08-24-21 13:47:34 HEAT TREATER HELPER by Elder Tejeda
== END 2021-08-23 18:43 | disposition home or self-care (01) ==
LOC: ER 14:47
DX: R07.9 Chest pain, unspecified (principal); F17.210 Nicotine dependence, cigarettes, uncomplicated; E11.9 Type 2 diabetes mellitus without complications; E78.5 Hyperlipidemia, unspecified; I10 Essential (primary) hypertension; Z85.850 Personal history of malignant neoplasm of thyroid; Z86.73 Personal history of transient ischemic attack (TIA), and cerebral infarction without residual deficits
CPT/HCPCS: 36415; 71045; 80048; 80076; 83735; 83880; 84484; 85025; 85610; 93005; 99284

== ENCOUNTER 2021-11-05 14:33 | Inpatient (IN) | payer OTHER ==
--- OUTSIDE RECORDS SUMMARY | 2021-11-05 14:38 | XMS REPORT | Continuity of Care Document ---
:1975 Author Organization [facility] t Address [address] [place] [address] Care Team Providers Name Role Phone Faiza Attending Clinician Unavailable DR DAVE Attending Clinician Unavailable YODIT Attending Clinician Unavailable Zhen Ibrahim Attending Clinician Unavailable Isabel CRUZ Attending Clinician Unavailable Venkatesh REYNOSO Attending Clinician VENKATESH Attending Clinician Unavailable VIOLETA Attending Clinician Unavailable Cat Crabtree Attending Clinician Unavailable LYN EDWARDS Attending Clinician Unavailable DR DAVE Admitting Clinician Unavailable YODIT Admitting Clinician Unavailable Yuliana Linda Admitting Clinician Unavailable Graham SALINAS Admitting Clinician Unavailable Joe Crabtree Admitting Clinician Unavailable LYN EDWARDS Admitting Clinician Unavailable Payers Payer Name Policy Type Policy Number Effective Date Expiration Date S lenard UNITED MEDICARE [id number] 2016 HMO 00:00:00 [facility] STAR [id number] 2013 PLAN 00:00:00 [facility] [id number] NEREIDA PADRON [id number] Problems Condition Condition Condition Status Onset Resolution Last Treating Co mments Source Name Details Category Date Date Treatment Clinician Date Proliferat Proliferat Disease Active Overview : Univers evonne evonne 3-30 Both ity of diabetic diabetic 00:00: [id number] Gee as retinopath retinopath 00 Diagnosis Medical y y Term Branch Coding Tech Utility 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 3-22 ICD10 ity of mellitus mellitus 00:00: Diagnosis Gee as without without 00 Term Medical complicati complicati Coding Tech Branch ons ons Utility Allergies, Adverse Reactions, Alerts Allergy Allergy Status Severity Reaction(s) Onset Inactive Treating Comm ents Source Name Type Date Date Clinician Shaji Propensi Active Unknown - [facility] ty to See comments 01-01 it y of chloroth adverse 00:00: [place] iazide reaction 00 Medical s Branch LISINOPR DRUG Active Unknown-Cmnt Un ruby IL-HYDRO 18 ity of CHLOROTH 00:00: [place] IAZIDE 00 Medical [place] No Known DA Active U [facility] 08-22 [facility] 00:00: [address] No Known DA Active U [facility] Allergie 08-22 [facility] 00:00: [address] NO KNOWN Drug Active Univers ALLERGIE Class ity of S [facility] NO KNOWN Allergy Active [facility] ALLERGIE S Social History Social Habit Start Date Stop Date Quantity Comments Source Exposure to Not sure [facility] SARS-CoV-2 (event) Medica l Branch Tobacco use and 2021-01-01 2021-01-01 Never used [facility] exposure 00:00:00 00:00:00 Medical Branch Sex Ass[birth year] At [birth year] [facility] 00:00:00 00:00:00 Medical [place] Smoking Status Start Date Stop Date Source Never smoker [facility] Medications Ordered Filled Start Stop Current Ordering Indication Dosage Frequency Signature Comments Components Source Medication Medication Date Date Medication? Clinician (SIG) Name Name PRED [facility] Yes 1 drop as Un ruby OPHTHALMIC 3-23 needed ity of 02:09: [address] [facility] drop as Un ruby OPHTHALMIC 3-23 needed ity of 02:09: [address] [facility] 1 drop as Un ruby OPHTHALMIC 3-23 needed ity of 02:09: [address] ALLERGEN Yes 1 drop as Univ ers OTIC 3-08 needed ity of 00:19: [address] ALLERGEN Yes 1 drop as Univ ers OTIC 3-08 needed ity of 00:19: [place] 37 Medical Branch ALLERGEN 2007-0 Yes 1 drop as Univ ers OTIC 3-08 needed ity of 00:19: [address] Branch ATROPINE 2006- Yes Use As DIR Uni vers (BULK) MISC 1-24 ity of 00:41: [place] [address] Medical Branch ATROPINE Yes Use As DIR Uni vers (BULK) MISC -24 ity of 00:41: [address] Branch ATROPINE 2006- Yes Use As DIR Uni vers (BULK) MISC -24 ity of 00:41: [address] Branch TOBRAMYCIN 2005- Yes 0.05 mL Univ ers SULFATE 0.3 [...] [place] ORAL TAB 00 Medical Branch PREDNISOLON 2005- Yes 0.05 mL Uni vers E ACETATE 1 1-07 Left Eye ity of % 00:00: QID [place] OPHTHALMIC 00 Medical DRPS Branch TOBRAMYCIN 2005- Yes 0.05 mL Univ ers SULFATE 0.3 [...] [place] ORAL TAB 00 Medical Branch PREDNISOLON 2005- Yes 0.05 mL Uni vers E ACETATE 1 1-07 Left Eye ity of % 00:00: QID [place] OPHTHALMIC 00 Medical DRPS Branch TOBRAMYCIN 2005- Yes 0.05 mL Univ ers SULFATE 0.3 1-07 Left Eye ity of % 00:00: QID [place] OPHTHALMIC 00 Medical DROP Branch SCOPOLAMINE 2005- Yes 0.05 mL Uni vers HBR 0.25 % 1-07 Left Eye ity o f OPHTHALMIC 00:00: BID [place] DROP 00 Medical Branch ACETAMINOPH 2005-08 Yes 2 Tab Oral Univers EN-CODEINE 07 Q6HPRN ity of 300-30 MG 00:00: [place] ORAL TAB Medical Branch PREDNISOLON 2005-08 Yes 0.05 mL Uni vers E ACETATE 1 08-23 Left Eye ity of % 00:00: QID [place] OPHTHALMIC Medical DRPS Branch Vital Signs Vital Name Observation Time Observation Value Comments Source HEIGHT 2020-05-17 162.6 cm 00:00:00 WEIGHT 2020-05-17 61.236 kg 00:00:00 Systolic blood 2021-01-01 162 mm[Hg] Simultaneous [place] of pressure 15:08:00 filing. User may [place] Medic al not have seen Branch previous data. Diastolic blood 2021-01-01 76 mm[Hg] Simultaneous [place] o f pressure 15:08:00 filing. User may [place] Medic al not have seen Branch previous data. Heart rate 2021-01-01 97 /min Simultaneous [facility] 15:08:00 filing. User may [place] Medic al not have seen Branch previous data. Body temperature 2021-01-01 36.61 Mallory Simultaneous [facility] 15:08:00 filing. User may [place] Medic al not have seen Branch previous data. Respiratory rate 2021-01-01 18 /min University 15:08:00 [facility] Body weight 2021-01-01 63.957 kg University 15:08:00 [facility] Oxygen saturation 2021-01-01 99 /min Simultaneous [facility] in Arterial blood 15:08:00 filing. User may [place] Medical by Pulse oximetry not have seen Branch previous data. HEIGHT 2020-05-17 162.6 cm 00:00:00 WEIGHT 2020-05-17 61.236 kg 00:00:00 Procedures Procedure Date / Time Performed Performing Clinician Isidro carter [id number] 2019-05-18 00:00:00 ENCPL [id number] 2019-05-18 00:00:00 ENCPL [id number] 2019-05-18 00:00:00 ENCPL [id number] 2019-05-18 00:00:00 ENC[facility] [id number] 2019-05-18 00:00:00 ENCPL Encounters Start End Encounter Admission Attending Care Care Encounter Source Date/Time Date/Time Type Type Clinicians Facility Department ID 2021-09-11 Outpatient [place], STLMLC STLMLC [id number] 12:03:02 [place] [address] [facility] 2020-06-15 Inpatient Kristina ACOSTA Kristina [id number] [facility] 08:00:00 [facility] 2020-05-18 Inpatient ER CAROL MONSIVAISL Internal [id number] [facility] 04:28:00 SWATHISHTA Med 2019-08-23 Inpatient EL MARIAM IbrahimU SURG [id number] [facility] 15:45:00 Imran [id number] [facility] 2019-04-12 Inpatient MH MED [id number] [facility] W 13:57:46 2021-07-02 2021-07-02 [id number] Univers 10:30:00 10:30:00 [facility] [id number] [facility] 2021-01-01 2021-01-01 Office [facility] [id number] Univers 09:55:30 11:22:11 Visit [facility] Camp[id number] [facility] [id number] [facility] Professio [id number] [address] 2021-01-01 2021-01-01 Outpatient R VENKATESH [facility] [id number] Univers 09:45:00 09:45:00 ELISSA sol o f [facility] 2020-10-30 2020-10-30 [id number] 2020-06-26 2020-06-26 Outpatient STLMLC [facility]LMLC [id number] [facility] 2019-09-20 2019-09-20 Outpatient WALESKA Ibrahim SURG [id number] [facility] 15:45:00 15:45:00 Imran [facility] 2019-05-16 2019-05-27 Inpatient 3 [facility] ENCPL CVA [id number] ENCPL 21:43:00 13:03:00 hez, 0930 Maryvella Results Test Description Test Time Test Comments [...] only after consultation wi the clinical microbiology [facility].Refer to previous cul ture ofCandida parapsilosis GRAM STAIN RESULT No White blood cells seen (BEAKER) (test code = 1123) GRAM STAIN RESULT No organisms seen (BEAKER) (test code = 681053) SURGICALLY OBTAINED CULTURE + GRAM [id number] 11:24:00 Test Item Value Reference Range Interpretation Comments CULTURE (BEAKER) A <1+ Trinidad (test code = parapsilosis 1095) GRAM STAIN No White blood RESULT (BEAKER) cells seen (test code = 1123) GRAM STAIN No organisms seen RESULT (BEAKER) (test code = 20193) ANAEROBIC [id number] 15:40:00 Test Item Value Reference Range Interpretation Comments CULTURE (BEAKER) (test No anaerobes isolated code = 1095) ANAEROBIC [id number] 15:40:00 Test Item Value Reference Range Interpretation Comments CULTURE (BEAKER) (test No anaerobes isolated code = 1095) POCT-GLUCOSE [id number] 08:09:00 Test Item Value Reference Range Interpretation Comments POC-GLUCOSE METER 151 mg/dL 70-110 H : TESTED A T [facility] 1317 (BEAKER) (test code [facility] [address], = 1538) [facility] 77 478: Clothing Examiner/Techni tammy ID = [id number] for Emilee Kovacs BASIC METABOLIC [id number] 06:34:00 Test Item Value Reference Range Interpretation [...] S NOT APPLICABLE FOR DIALYSIS PATIEN TS. Clothing Examiner ID - [id number] 06:23:00 Test Item Value Reference Range Interpretation Comments PHOSPHORUS (BEAKER) (test code = 4.0 mg/dL 2.5-4.5 604) Clothing Examiner ID - ADMINCBC W/PLT COUNT & AUTO [id number] 05:45:00 Test Item Value Reference Range Interpretation [...] PERCENT (BEAKER) (test code = 2801) POCT-GLUCOSE [id number] 20:47:00 Test Item Value Reference Range Interpretation Comments POC-GLUCOSE METER 205 mg/dL 70-110 H : TESTED A T [facility] 1317 (BEAKER) (test code [address], = 1538) [place] [address]: Clothing Examiner/Techni tammy ID = [id number] for Pat Reyes BLOOD [id number] 13:00:00 Test Item Value Reference Range Interpretation Comments CULTURE (BEAKER) (test No growth in 5 days code = 1095) POCT-GLUCOSE [id number] 11:38:00 Test Item Value Reference Range Interpretation Comments POC-GLUCOSE METER 74 mg/dL 70-110 : TESTED A T [facility] 1317 (BEAKER) (test code = [address], 1538) [place] [address]: Clothing Examiner/Techni tammy ID = [id number] for Soheila Cheatham POCT-GLUCOSE [id number] 07:31:00 Test Item Value Reference Range Interpretation Comments POC-GLUCOSE METER 104 mg/dL 70-110 : TESTED A T [facility] 1317 (BEAKER) (test code [address], = 1538) [place] [address]: Clothing Examiner/Techni tammy ID = [id number] for Soheila Cheatham BASIC METABOLIC [id number] 05:25:00 Test Item Value Reference Range Interpretation [...] S NOT APPLICABLE FOR DIALYSIS PATIEN TS. Clothing Examiner ID - [id number] 05:21:00 Test Item Value Reference Range Interpretation Comments PHOSPHORUS (BEAKER) (test code = 5.1 mg/dL 2.5-4.5 H 604) Clothing Examiner ID - ADMINVANCOMYCIN LEVEL, [id number] 05:20:00 Test Item Value Reference Range Interpretation Comments VANCOMYCIN RANDOM (BEAKER) (test 19.7 ug/mL code = 523) Reference Range: No NormalsOperator ID - ADMINCBC W/PLT COUNT & AUTO [id number] 05:10:00 Test Item Value Reference Range Interpretation [...] PERCENT (BEAKER) (test code = 2801) POCT-GLUCOSE [id number] 20:52:00 Test Item Value Reference Range Interpretation Comments POC-GLUCOSE METER 127 mg/dL 70-110 H : TESTED A T [facility] 1317 (BEAKER) (test code [facility] [address], = 1538) [facility] 77 478: Clothing Examiner/Techni tammy ID = [id number] for Aanu siem, felicity TISSUE [id number] 11:55:00Surgical Pathology Report Case: [id number] Authorizing Provider: Jada Acosta DPM Collected: 05/21/2020 12:36 PM Ordering Location: [facility] 5th Floor Received: 05/21/2020 12:49 PM Pathologist: Ann Meeks MD Specimen: Benito ne, right 1st metatarsal head bone biopsy BONE, RIGHT FIRSTMETATARSAL HEAD, BIOPSY: - BONE WITH FOCAL FIBROSIS AND CHRONIC INFLAMMATION, CONSISTENT WITH CHRONIC OSTEOMYELITIS Signing Pathologist Direct Phone Line: [phone] signed by Ann Meeks MD on 05/22/2020 at 11:55 [id number]; [id number] foot abscessRight 1st metatarsalhead bone biopsySpecimen is received in formalin designated "bone" and consists of two marin-red bone fragments measuring 1 x 0.3 x 0.3 cm, submitted after decalcification in cassette A1. SQ/plPerformed. [facility], Department of Pathology, [address] [place] [address], [facility], Department of Pathology, [address] [place] [address], [facility], Department of Pathology, [address] [place] [address], XOHT-GLUCOSE [id number] 11:41:00 Test Item Value Reference Range Interpretation Comments POC-GLUCOSE METER 84 mg/dL 70-110 : TESTED A T [facility] 1317 (BEAKER) (test code = [address], 1538) [place] [address]: Clothing Examiner/Techni tammy ID = [id number] for Mary Adames POCT-GLUCOSE [id number] 07:38:00 Test Item Value Reference Range Interpretation Comments POC-GLUCOSE METER 93 mg/dL 70-110 : TESTED A T [facility] 1317 (BEAKER) (test code = [address], 1538) [place] [address] 478: Clothing Examiner/Techni tammy ID = [id number] for Mary Adames BASIC METABOLIC [id number] 06:04:00 Test Item Value Reference Range Interpretation [...] S NOT APPLICABLE FOR DIALYSIS PATIEN TS. Clothing Examiner ID - [id number] 05:51:00 Test Item Value Reference Range Interpretation Comments PHOSPHORUS (BEAKER) (test code = 4.4 mg/dL 2.5-4.5 604) Clothing Examiner ID - ADMINCBC W/PLT COUNT & AUTO [id number] 05:30:00 Test Item Value Reference Range Interpretation [...] PERCENT (BEAKER) (test code = 2801) POCT-GLUCOSE [id number] 21:49:00 Test Item Value Reference Range Interpretation Comments POC-GLUCOSE METER 95 mg/dL 70-110 : TESTED A T [facility] 1317 (BEAKER) (test code = [address], 1538) [place] [address]: Clothing Examiner/Techni tammy ID = [id number] for [address] street Jacquie POCT-GLUCOSE [id number] 12:40:00 Test Item Value Reference Range Interpretation Comments POC-GLUCOSE METER 80 mg/dL 70-110 : TESTED A T [facility] 1317 (BEAKER) (test code = [address], 1538) [place] [address] 478: Clothing Examiner/Techni tammy ID = [id number] for Berenice Hamilton HCG, SERUM, [id number] 10:42:00 Test Item Value Reference Range Interpretation Comments TEST SERUM (BEAKER) (test Negative code = 584) POCT-GLUCOSE [id number] 07:56:00 Test Item Value Reference Range Interpretation Comments POC-GLUCOSE METER 105 mg/dL 70-110 : TESTED A T [facility] 1317 (BEAKER) (test code [address], = 1538) [facility] [place] 77 [address]: Clothing Examiner/Techni tammy ID = [id number] for Mary Adames BASIC METABOLIC [id number] 04:24:00 Test Item Value Reference Range Interpretation [...] S NOT APPLICABLE FOR DIALYSIS PATIEN TS. Clothing Examiner ID - ADMINIRON, TIBC, % SAT. (WITHOUT FERRITIN)2020-05-21 04:24:00 Test Item Value Reference Range Interpretation Comments IRON (BEAKER) (test code = 547) 68.0 ug/dL 45.0-170.0 TOTAL IRON BINDING CAPACITY 170 ug/dL 250-550 L (BEAKER) (test code = 769) IRON % SATURATION (2) (BEAKER) 40 % 20-55 (test code = 2590) Clothing Examiner ID - [id number] 04:20:00 Test Item Value Reference Range Interpretation Comments MAGNESIUM (BEAKER) (test code = 2.0 mg/dL 1.5-3.0 627) Clothing Examiner ID - ADMINPROTHROMBIN [id number] 04:18:00 Test Item Value Reference Range Interpretation Comments PROTIME (BEAKER) (test code = 759) 10.9 sec 9.3-12.0 INR (BEAKER) (test code = 370) 1.00 <=5.90 RECOMMENDED COUMADIN/WARFARIN INR THERAPY RANGESSTANDARD DOSE: 2.0 - 3.0 Includes: PROPHYLAXIS forvenous thrombosis, systemic embolization; TREATMENT for venous thrombosis and/or pulmonary embolus.HIGH RISK: Target INR is 2.5-3.5 for patients with mechanical heart valves.Final Information (Auto Output)Final Information (Auto Output)[id number] 04:18:00 Test Item Value Reference Range Interpretation Comments PARTIAL THROMBOPLASTIN TIME (BEAKER) 27.9 sec 23.0-35.0 (test code = 760) Final Information (Auto Output)[id number] 04:17:00 Test Item Value Reference Range Interpretation Comments PHOSPHORUS (BEAKER) (test code = 6.9 mg/dL 2.5-4.5 H 604) Clothing Examiner ID - ADMINVANCOMYCIN LEVEL, [id number] 04:16:00 Test Item Value Reference Range Interpretation Comments VANCOMYCIN RANDOM (BEAKER) (test 13.8 ug/mL code = 523) Reference Range: No NormalsOperator ID - ADMINCBC W/PLT COUNT & AUTO [id number] 04:03:00 Test Item Value Reference Range Interpretation [...] PERCENT (BEAKER) (test code = 2801) POCT-GLUCOSE [id number] 21:19:00 Test Item Value Reference Range Interpretation Comments POC-GLUCOSE METER 118 mg/dL 70-110 H : TESTED A T [facility] 1317 (BEAKER) (test code [facility] [address], = 1538) [facility] 77 478: Clothing Examiner/Techni tammy ID = [id number] for Jacquie Vázquez POCT-GLUCOSE [id number] 16:03:00 Test Item Value Reference Range Interpretation Comments POC-GLUCOSE METER 273 mg/dL 70-110 H : TESTED A T [facility] 1317 (BEAKER) (test code [address], = 1538) [place] [address]: Clothing Examiner/Techni tammy ID = [id number] for Mary Adames POCT-GLUCOSE [id number] 11:32:00 Test Item Value Reference Range Interpretation Comments POC-GLUCOSE METER 224 mg/dL 70-110 H : TESTED A T [facility] 1317 (BEAKER) (test code [address], = 1538) [place] [address] 478: Clothing Examiner/Techni tammy ID = [id number] for Mary Adames POCT-GLUCOSE [id number] 07:33:00 Test Item Value Reference Range Interpretation Comments POC-GLUCOSE METER 260 mg/dL 70-110 H : TESTED A T [facility] 1317 (BEAKER) (test code [address], = 1538) [place] [address]: Clothing Examiner/Techni tammy ID = [id number] for Mary Adames TSH/FREE T4 IF [id number] 07:06:00 Test Item Value Reference Range Interpretation Comments THYROID STIMULATING HORMONE 3.130 uIU/mL 0.350-5.500 (BEAKER) (test code = 772) Clothing Examiner ID - ADMINBASIC METABOLIC [id number] 06:52:00 Test Item Value Reference Range Interpretation [...] S NOT APPLICABLE FOR DIALYSIS PATIEN TS. Clothing Examiner ID - [id number] 06:49:00 Test Item Value Reference Range Interpretation Comments MAGNESIUM (BEAKER) 1.9 mg/dL 1.5-3.0 Specimen slightly (test code = 627) hemolyzed Clothing Examiner ID - [id number] 06:46:00 Test Item Value Reference Range Interpretation Comments PHOSPHORUS (BEAKER) 6.2 mg/dL 2.5-4.5 H Specimen slightly (test code = 604) hemolyzed Clothing Examiner ID - ADMINCBC W/PLT COUNT & AUTO [id number] 05:25:00 Test Item Value Reference Range Interpretation [...] PERCENT (BEAKER) (test code = 2801) POCT-GLUCOSE [id number] 22:13:00 Test Item Value Reference Range Interpretation Comments POC-GLUCOSE METER 318 mg/dL 70-110 H : TESTED A T [facility] 1317 ([facility]) (test code [facility], = 1538) [place] [address]: Clothing Examiner/Techni tammy ID = [id number] for Elissa Diaz POCT-GLUCOSE [id number] 16:36:00 Test Item Value Reference Range Interpretation Comments POC-GLUCOSE METER 238 mg/dL 70-110 H : Notified RN/MD: TESTED ([facility]) (test code AT [facility] [address] [address] = 1538) [place] [address]: Clothing Examiner/Techni tammy ID = [id number] for Debbie Castañedabarbara HEPATITIS B SURFACE [id number] 12:07:00 Test Item Value Reference Range Interpretation Comments HEPATITIS B SURFACE ANTIBODY 9.4 mIU/mL <8.0 H ([facility]) (test code = 647) Clothing Examiner ID - RORYGPOCT-GLUCOSE [id number] 11:31:00 Test Item Value Reference Range Interpretation Comments POC-GLUCOSE METER 170 mg/dL 70-110 H : Notified RN/MD: TESTED ([facility]) (test code AT [facility] [address] = 1538) [place] [address]: Clothing Examiner/Techni tammy ID = [id number] for Cuate Castañeda VANCOMYCIN LEVEL, [id number] 09:31:00 Test Item Value Reference Range Interpretation Comments VANCOMYCIN RANDOM (BEAKER) (test 14.3 ug/mL code = 523) Reference Range: No NormalsOperator ID - ADMINBASIC METABOLIC [id number] 08:59:00 Test Item Value Reference Range Interpretation [...] S NOT APPLICABLE FOR DIALYSIS PATIEN TS. Clothing Examiner ID - [id number] 08:56:00 Test Item Value Reference Range Interpretation Comments MAGNESIUM (BEAKER) (test code = 1.9 mg/dL 1.5-3.0 627) Clothing Examiner ID - [id number] 08:53:00 Test Item Value Reference Range Interpretation Comments PHOSPHORUS (BEAKER) (test code = 4.7 mg/dL 2.5-4.5 H 604) Clothing Examiner ID - ADMINCBC W/PLT COUNT & AUTO [id number] 08:51:00 Test Item Value Reference Range Interpretation [...] PERCENT (BEAKER) (test code = 2801) POCT-GLUCOSE [id number] 07:53:00 Test Item Value Reference Range Interpretation Comments POC-GLUCOSE METER 153 mg/dL 70-110 H : Notified RN/MD: TESTED (BEAKER) (test code AT [facility] [address] [facility] = 1538) [place] [address]: Clothing Examiner/Techni tammy ID = [id number] for Cuate Castañeda SARS-COV2/RT-PCR ([facility])2020-05-19 00:02:00 Test Item Value Reference Range Interpretation Comments SARS-COV2/RT-PCR (test Negative Not Detected, Negative, code = 2024743) See external report for linked test SARS-COV-2 PERFORMING LAB [facility] (test code = 4196942) Negative result for this test determines that [...] 564(g) of the Act.Fact Sheet for Healthcare Providers:https://www.[employer].Zapcoder/sites/default/files/product/documents/Fact_Shee f_JA_Zmrbogbjp_Xqfn_LKJH-ExU-2.pdfFact Sheet for Healthcare Patients:https://www.[employer]ap[employer]/sites/default/files/product/ documents/Bnin_Suyai_Moscbdmj_Npec_VPZV-JfX-0.pdfPerforming Laboratory:[facility], [place] [address]ECDR-[id number] METER 2020-05-18 21:01:00 Test Item Value Reference Range Interpretation Comments POC-GLUCOSE METER 190 mg/dL 70-110 H : TESTED A T [facility] 1317 (BEAKER) (test code [address], = 1538) [place] [address]: Clothing Examiner/Techni tammy ID = [id number] for Nehal Patiño HEPATITIS B SURFACE [id number] 20:29:00 Test Item Value Reference Range Interpretation Comments HEPATITIS B SURFACE ANTIGEN (2) Nonreactive Nonreactive (BEAKER) (test code = 2585) Clothing Examiner ID - ADMINPOCT-GLUCOSE [id number] 16:43:00 Test Item Value Reference Range Interpretation Comments POC-GLUCOSE METER 211 mg/dL 70-110 H : TESTED A T [facility] 1317 (BEAKER) (test code [address], = 1538) [place] [address]: Clothing Examiner/Techni tammy ID = [id number] for Daryn marcano Mary MR, EXTREMITY, LOWER, WITHOUT CONTRAST, [id number] 15:44:00Recent amputation for R great toe osteomyelitis/diabetic [...] Tyler Verified Date/Time: 05/18/2020 15:44:11 Reading Location: [facility] Radiology Reading Room POCT-GLUCOSE [id number] 12:55:00 Test Item Value Reference Range Interpretation Comments POC-GLUCOSE METER 169 mg/dL 70-110 H : TESTED A T [facility] 1317 (BEAKER) (test code [address], = 1538) [facility] 77 [address]: Clothing Examiner/Techni tammy ID = [id number] for Daryn marcanoMary HEPATIC FUNCTION [id number] 09:20:00 Test Item Value Reference Range Interpretation [...] Specimen slightly (test code = 347) hemolyzed Clothing Examiner ID - [id number] 09:20:00 Test Item Value Reference Range Interpretation Comments MAGNESIUM (BEAKER) 3.8 mg/dL 1.5-3.0 H Specimen slightly (test code = 627) hemolyzed Clothing Examiner ID - ADMINHEMOGLOBIN [id number] 09:20:00 Test Item Value Reference Range Interpretation Comments HEMOGLOBIN A1C (BEAKER) (test code = 9.4 % 4.3-6.1 H 368) Clothing Examiner ID - ADMINBASIC METABOLIC [id number] 09:19:00 Test Item Value Reference Range Interpretation [...] S NOT APPLICABLE FOR DIALYSIS PATIEN TS. Clothing Examiner ID - ADMINC-REACTIVE [id number] 09:19:00 Test Item Value Reference Range Interpretation Comments C-REACTIVE PROTEIN (BEAKER) (test 1.17 mg/dL 0.00-0.50 H code = 676) Clothing Examiner ID - ADMINVANCOMYCIN LEVEL, [id number] 09:18:00 Test Item Value Reference Range Interpretation Comments VANCOMYCIN TROUGH (BEAKER) (test 15.1 ug/mL 10.0-20.0 code = 522) Clothing Examiner ID - ADMINCBC W/PLT COUNT & AUTO [id number] 09:09:00 Test Item Value Reference Range Interpretation [...] PERCENT (BEAKER) (test code = 2801) POCT-GLUCOSE [id number] 08:18:00 Test Item Value Reference Range Interpretation Comments POC-GLUCOSE METER 177 mg/dL 70-110 H : TESTED A T [facility] 1317 (BEAKER) (test code [address], = 1538) [facility] 77 478: Clothing Examiner/Techni tammy ID = [id number] for Mary Adames RAD, CHEST, 1 VIEW, NON [id number] 08:11:00Reason for exam:->shortness of breathShould this be performed at the bedside?->YesFINAL REPORT CLINICAL HISTORY: shortness of breath TECHNIQUE: 1 view of the c hest. COMPARISON: 07/18/2019 IMPRESSION: There are new, mildly prominent interstitial opacities bilaterally. There is no lobar consolidation or significant pleural fluid. There is no cardiomegaly. Surgical clips are seen in the medial left upper arm. Signed: Marychuy Buenoort Verified Date/Time: 08:11:49 Reading Location: [facility] Radiology Reading Room Electronically signedby: MARYCHUY BUENO M.D. on 05/18/2020 08:11 AMHEPATITIS B SURF AB, [id number] 18:16:00 Test Item Value Reference Range Interpretation [...] ~~~~~~~~ ~~~~~~~~~~~~~~~ ~~~~~~~~ ~ AG HEPATITIS B [id number] 18:16:00 Test Item Value Reference Range Interpretation Comments AG HEPATITIS B SURFACE (test code = NEGATIVE NONREACTIVE HBSAG) HIV 12 AB [id number] 18:16:00 Test Item Value Reference Range Interpretation Comments HIV 1 2 COMBO AG/AB SCREEN AB/AG NON REACTIVE NONREACTIVE (test code = [id number]) HEPATITIS B SURF AB, [id number] 17:51:00 Test Item Value Reference Range Interpretation Comments HEPATITIS B SURF AB, QUANT (test code mIU/mL = HBSABQ) AG HEPATITIS B [id number] 17:51:00 Test Item Value Reference Range Interpretation Comments AG HEPATITIS B SURFACE (test code = NEGATIVE NONREACTIVE HBSAG) HIV 12 AB [id number] 17:51:00 Test Item Value Reference Range Interpretation Comments HIV 1 2 COMBO AG/AB SCREEN AB/AG NON REACTIVE NONREACTIVE (test code = [id number]) HEPATITIS B SURF AB, [id number] 17:39:00 Test Item Value Reference Range Interpretation Comments HEPATITIS B SURF AB, QUANT (test code mIU/mL = HBSABQ) AG HEPATITIS B [id number] 17:39:00 Test Item Value Reference Range Interpretation Comments AG HEPATITIS B SURFACE (test code = NEGATIVE NONREACTIVE HBSAG) HIV 12 AB [id number] 17:39:00 Test Item Value Reference Range Interpretation Comments HIV 1 2 COMBO AG/AB SCREEN (test code = NONREACTIVE [id number]) GLUCOSE BEDSIDE [id number] 12:00:00 Test Item Value Reference Range Interpretation Comments GLUCOSE BEDSIDE TESTING (test code 136 MG/DL 60-99 H = GLUBED) GLUCOSE BEDSIDE [id number] 21:08:00 Test Item Value Reference Range Interpretation Comments GLUCOSE BEDSIDE TESTING (test code = 84 MG/DL 60-99 N GLUBED) BASIC METABOLIC [id number] 16:40:00 Test Item Value Reference Range Interpretation [...] 9.0 MG/DL 8.4-10.2 N CA) HCG SERUM [id number] 16:40:00 Test Item Value Reference Range Interpretation Comments HCG SERUM QUAL (test code = HCGQL) NEGATIVE NEGATIVE A PROTHROMBIN [id number] 16:32:00 Test Item Value Reference Range Interpretation [...] sunshine embolism. 3.0 - 4.5 Comments to Sharepoint Engineer: PREOPPTT [id number] 16:32:00 Test Item Value Reference Range Interpretation Comments PTT ACTIVATED (test code = APTT) 30.3 SECONDS 22.0-33.0 N Comments to Sharepoint Engineer: PREOPBASIC METABOLIC [id number] 16:32:00 Test Item Value Reference Range Interpretation [...] code = CA) MG/DL 8.7-9.7 HCG SERUM [id number] 16:32:00 Test Item Value Reference Range Interpretation Comments HCG SERUM QUAL (test code = HCGQL) NEGATIVE NEGATIVE A BASIC METABOLIC [id number] 16:31:00 Test Item Value Reference Range Interpretation [...] code = CA) MG/DL 8.7-9.7 HCG SERUM [id number] 16:31:00 Test Item Value Reference Range Interpretation Comments HCG SERUM QUAL (test code = HCGQL) NEGATIVE CBC W/AUTO [id number] 16:25:00 Test Item Value Reference Range Interpretation [...] 0.00 K/mm3 0.0-0.1 N NRBC#) GLUCOSE BEDSIDE [id number] 18:41:00 Test Item Value Reference Range Interpretation Comments GLUCOSE BEDSIDE TESTING (test code = 83 MG/DL 60-99 N GLUBED) BASIC METABOLIC [id number] 15:04:00 Test Item Value Reference Range Interpretation [...] 9.1 MG/DL 8.4-10.2 N CA) BASIC METABOLIC [id number] 15:00:00 Test Item Value Reference Range Interpretation [...] code = CA) MG/DL 8.7-9.7 HCG SERUM [id number] 14:59:00 Test Item Value Reference Range Interpretation Comments HCG SERUM QUAL (test code = HCGQL) NEGATIVE NEGATIVE A PROTHROMBIN [id number] 14:56:00 Test Item Value Reference Range Interpretation [...] syste sunshine embolism. 3.0 - 4.5 PTT [id number] 14:56:00 Test Item Value Reference Range Interpretation Comments PTT ACTIVATED (test code = APTT) 27.9 SECONDS 22.0-33.0 N CBC W/AUTO [id number] 14:43:00 Test Item Value Reference Range Interpretation [...] N NRBC#) RAD, CHEST, 1 VIEW, NON [id number] 11:27:00Reason for exam:->r/o pneumoniaShould this be performed [...] MDReport Verified Date/Time: 07/18/2019 11:27:35 Reading Location: [facility] Reading Room POCT-GLUCOSE [id number] 08:34:00 Test Item Value Reference Range Interpretation Comments POC-GLUCOSE METER 126 mg/dL 70-110 H : TESTED A T [facility] 6720 (BEAKER) (test code = [place], 1538) [address]: Clothing Examiner/Techni tammy ID = [id number] for Raymond travis Baldomero BASIC METABOLIC [id number] 06:56:00 Test Item Value Reference Range Interpretation [...] S NOT APPLICABLE FOR DIALYSIS PATIEN TS. [id number] 06:45:00 Test Item Value Reference Range Interpretation Comments PHOSPHORUS (BEAKER) (test code = 4.6 mg/dL 2.3-4.7 604) [id number] 06:45:00 Test Item Value Reference Range Interpretation Comments MAGNESIUM (BEAKER) (test code = 2.0 mg/dL 1.6-2.6 627) CBC W/PLT COUNT & AUTO [id number] 05:35:00 Test Item Value Reference Range Interpretation [...] PERCENT (BEAKER) (test code = 2801) PROTHROMBIN [id number] 05:24:00 Test Item Value Reference Range Interpretation [...] is2.5-3.5 for patients wiht mechanical heart valves.POCT-GLUCOSE [id number] 21:08:00 Test Item Value Reference Range Interpretation Comments POC-GLUCOSE METER 191 mg/dL 70-110 H : TESTED A T [facility] 6720 (BEAKER) (test code = [facility], 1538) [address]: Clothing Examiner/Techni tammy ID = [id number] for Keith Quintero POCT-GLUCOSE [id number] 17:20:00 Test Item Value Reference Range Interpretation Comments POC-GLUCOSE METER 168 mg/dL 70-110 H : TESTED A T [facility] 6720 (BESpendji) (test code = [facility], 1538) [address]: Clothing Examiner/Techni tammy ID = [id number] for HU NT, MAVIS POCT-GLUCOSE [id number] 12:49:00 Test Item Value Reference Range Interpretation Comments POC-GLUCOSE METER 221 mg/dL 70-110 H : TESTED A T [facility] 6720 (BEAKER) (test code = [facility], 1538) [address]: Clothing Examiner/Techni tammy ID = [id number] for HU NT, MAVIS SCREEN, [id number] 11:54:00 Test Item Value Reference Range Interpretation Comments TEST URINE (BEAKER) (test Negative code = 583) POCT-GLUCOSE [id number] 09:11:00 Test Item Value Reference Range Interpretation Comments POC-GLUCOSE METER 112 mg/dL 70-110 H : TESTED A T [facility] 6720 (BESpendji) (test code = [facility], 1538) [address]: Clothing Examiner/Techni tammy ID = [id number] for MAVIS GARRIDO BASIC METABOLIC [id number] 06:50:00 Test Item Value Reference Range Interpretation [...] S NOT APPLICABLE FOR DIALYSIS PATIEN TS. [id number] 06:38:00 Test Item Value Reference Range Interpretation Comments PHOSPHORUS (BEAKER) (test code = 3.9 mg/dL 2.3-4.7 604) [id number] 06:38:00 Test Item Value Reference Range Interpretation Comments MAGNESIUM (BEAKER) (test code = 1.9 mg/dL 1.6-2.6 627) PROTHROMBIN [id number] 06:12:00 Test Item Value Reference Range Interpretation [...] mechanical heart valves.CBC W/PLT COUNT & AUTO [id number] 06:06:00 Test Item Value Reference Range Interpretation [...] 0-1 PERCENT (BEAKER) (test code = 2801) [id number] 04:27:00 Test Item Value Reference Range Interpretation Comments RPR SCREEN (TAINA) (test code = Nonreactive Nonreactive 420) MR, MRA, BRAIN, WITHOUT [id number] 03:28:00Reason for exam:- >StrokeWhat is the patient's [...] 07/17/2019 03:28:33 MR, MRA, NECK, WITHOUT IV [id number] 03:28:00FINAL REPORT MR, BRAIN, WITHOUT CONTRAST, MR, [...] Verified Date/Time: 07/17/2019 03:28:33 MR, BRAIN, WITHOUT [id number] 03:28:00 Reason for exam:->StrokeWhat is the patient's [...] Ortiz MDReport Verified Date/Time: 07/17/2019 03:28:33 POCT-GLUCOSE [id number] 21:16:00 Test Item Value Reference Range Interpretation Comments POC-GLUCOSE METER 143 mg/dL 70-110 H : TESTED A T [facility] 6720 (BEAKER) (test code = [facility], 1538) [address]: Clothing Examiner/Techni tammy ID = [id number] for JANELL GEORGE POCT-GLUCOSE [id number] 17:33:00 Test Item Value Reference Range Interpretation Comments POC-GLUCOSE METER 108 mg/dL 70-110 : TESTED A T [facility] 6720 (BEAKER) (test code = [facility], 1538) 44[address]: Clothing Examiner/Techni tammy ID = [id number] for BETSEY AVELINO TAVON JJ POCT-GLUCOSE [id number] 17:25:00 Test Item Value Reference Range Interpretation Comments POC-GLUCOSE METER 155 mg/dL 70-110 H : TESTED A T [facility] 6720 (BEAKER) (test code = [facility], 1538) 93[address]: Clothing Examiner/Techni tammy ID = [id number] for SIMON CHO HEPATITIS B SURFACE [id number] 14:30:00 Test Item Value Reference Range Interpretation Comments HEPATITIS B SURFACE ANTIGEN (2) Nonreactive Nonreactive (BEAKER) (test code = 2585) POCT-GLUCOSE [id number] 12:17:00 Test Item Value Reference Range Interpretation Comments POC-GLUCOSE METER 146 mg/dL 70-110 H : TESTED A T [facility] 6720 (BEAKER) (test code = [facility], 1538) [address]: Clothing Examiner/Techni tammy ID = [id number] for MAVIS GARRIDO BASIC METABOLIC [id number] 09:26:00 Test Item Value Reference Range Interpretation [...] NOT APPLICABLE FOR DIALYSIS PATIEN TS. POCT-GLUCOSE [id number] 08:27:00 Test Item Value Reference Range Interpretation Comments POC-GLUCOSE METER 106 mg/dL 70-110 : TESTED A T [facility] 6720 (BEAKER) (test code = [address] [facility], 1538) [address]: Clothing Examiner/Techni tammy ID = [id number] for SIMON CHO POCT-GLUCOSE [id number] 07:46:00 Test Item Value Reference Range Interpretation Comments POC-GLUCOSE METER 171 mg/dL 70-110 H : TESTED A T [facility] 6720 ([facility]) (test code [facility], = 1538) [address]: Clothing Examiner/Techni tammy ID = [id number] for YASMINE VO RAD, CHEST, 1 VIEW, NON [id number] 07:36:00Reason for exam:- >baselineShould this be performed [...] MDReport Verified Date/Time: 07/16/2019 07:36:01 Reading Location: [facility] B1 C013Y CT Body Reading Room HEMOGLOBIN [id number] 06:42:00 Test Item Value Reference Range Interpretation Comments HEMOGLOBIN A1C (BEAKER) (test code = 9.5 % 4.3-6.1 H 368) BASIC METABOLIC [id number] 06:27:00 Test Item Value Reference Range Interpretation [...] DIALYSIS PATIEN TS. HIV-1 ANTIGEN WITH HIV-1/2 [id number] 05:52:00 Test Item Value Reference Range Interpretation Comments HIV-1 ANTIGEN WITH HIV 1\\T\\2 Nonreactive Nonreactive ANTIBODY (2) (BEAKER) (test code = 2586) POCT-GLUCOSE [id number] 05:38:00 Test Item Value Reference Range Interpretation Comments POC-GLUCOSE METER 420 mg/dL 70-110 HH : Notified RN/MD: TESTED (BEAKER) (test code AT [facility] [address] = 1538) [place], [address]: Clothing Examiner/Techni tammy ID = [id number] for YASMINE VO TSH/FREE T4 IF [id number] 05:11:00 Test Item Value Reference Range Interpretation Comments THYROID STIMULATING HORMONE 0.87 uIU/mL 0.35-4.94 (BEAKER) (test code = 772) VITAMIN B12 AND [id number] 05:11:00 Test Item Value Reference Range Interpretation Comments VITAMIN B12 (BEAKER) (test code = 525 pg/mL 213-816 774) FOLATE (BEAKER) (test code = 362) 6.5 ng/mL >=7.0 L BASIC METABOLIC [id number] 04:57:00 Test Item Value Reference Range Interpretation [...] S NOT APPLICABLE FOR DIALYSIS PATIEN TS. [id number] 04:47:00 Test Item Value Reference Range Interpretation Comments PHOSPHORUS (BEAKER) (test code = 5.5 mg/dL 2.3-4.7 H 604) [id number] 04:47:00 Test Item Value Reference Range Interpretation Comments MAGNESIUM (BEAKER) (test code = 2.0 mg/dL 1.6-2.6 627) LIPID [id number] 04:47:00 Test Item Value Reference Range Interpretation [...] 130-159 High 160-189 Very High >=190HEPATIC FUNCTION [id number] 04:47:00 Test Item Value Reference Range Interpretation [...] = 99 U/L 6-55 H 347) PROTHROMBIN [id number] 04:11:00 Test Item Value Reference Range Interpretation [...] mechanical heart valves.CBC W/PLT COUNT & AUTO [id number] 04:03:00 Test Item Value Reference Range Interpretation [...] 417) IMMATURE GRANULOCYTES-RELATIVE 0 % 0-1 PERCENT ([facility]) (test code = 2801) POCT-GLUCOSE [id number] 03:47:00 Test Item Value Reference Range Interpretation Comments POC-GLUCOSE METER > mg/dL 70-110 HH : Notified RN/MD: TESTED ([facility]) (test code = AT [facility] [address] [facility] [place] [address]: Clothing Examiner/Techni tammy ID = [id number] for SYLVIA JONES FACTOR 5 LEIDEN PCR (THROMBOTIC RISK)2017-03-24 19:24:00 Test Item Value Reference Range Interpretation Comments FACTOR V LEIDEN Negative for the R506Q ([facility]) (test code = (Factor V Leiden) 718) mutation [id number] Martínez Wang MD ([facility]) (test code = (electronic signature) 9451) This test is a genotyping assay which [...] was developed and its performance characteristics [facility], Section of Molecular Pathology. It has not been cleared or approved by the U.S. Food and Drug Administration (FDA), since FDA approval is not requ ired for clinical use of the test. Validation was done as required by the Clinical Laboratory Improvement Amendments of 1988.POCT-GLUCOSE [id number] 07:28:00 Test Item Value Reference Range Interpretation Comments POC-GLUCOSE METER 200 mg/dL 70-110 H TESTED AT [facility] 6720 ([facility]) (test code = [facility] 1538) [address] POCT-GLUCOSE [id number] 21:18:00 Test Item Value Reference Range Interpretation Comments POC-GLUCOSE METER 211 mg/dL 70-110 H TESTED AT [facility] 6720 ([facility]) (test code = [facility] 1538) [address] PROTEIN, RANDOM [id number] 19:43:00 Test Item Value Reference Range Interpretation Comments PROTEIN, URINE (BEAKER) (test code 286 mg/dL 0-14 H = 1569) CREATININE, RANDOM [id number] 18:27:00 Test Item Value Reference Range Interpretation [...] Normal Hexagonal (BEAKER) (test code = Phospholipid [id number]) [id number] Martínez Wang MD ([employer]) (test code = (electronic 2610) signature) DRVV SCREEN RATIO 0.84 <1.20 (BEAKER) (test code = 2707) Effective 12/20/2013: Test Method ChangeDRVV Screen Ratio, DRVV 1/1 Screen Ratio, DRVV Confirm Ratio,DRVV Normalized Ratio Reference Range: <1.2Protime Reference Range ChangeNew: 11.7-14.7 Previous: 9.8-12.0PTT Reference Range ChangeNew: 22.5-36.0 Previous: 25.8-34.5URINE [id number] 11:40:00 Test Item Value Reference Range Interpretation Comments CULTURE (BEAKER) (test 20-29,000 col/mL skin code = 1095) lei POCT-GLUCOSE [id number] 08:33:00 Test Item Value Reference Range Interpretation Comments POC-GLUCOSE METER 293 mg/dL 70-110 H TESTED AT [facility] 6720 (BESpendji) (test code = [place] 1538) [address] VITAMIN D, 66-[id number] 07:49:00 Test Item Value Reference Range Interpretation Comments VITAMIN D 25-OH (BEAKER) (test code = < ng/mL 13.0-47.8 L 8284) CBC W/PLT COUNT & AUTO [id number] 05:59:00 Test Item Value Reference Range Interpretation [...] (BEAKER) (test code = 2801) BASIC METABOLIC [id number] 05:38:00 Test Item Value Reference Range Interpretation [...] S NOT APPLICABLE FOR DIALYSIS PATIEN TS. [id number] 05:37:00 Test Item Value Reference Range Interpretation Comments PHOSPHORUS (BEAKER) (test code = 4.1 mg/dL 2.3-4.7 604) [id number] 05:37:00 Test Item Value Reference Range Interpretation Comments MAGNESIUM (BEAKER) (test code = 1.7 mg/dL 1.6-2.6 627) PTH, [id number] 05:34:00 Test Item Value Reference Range Interpretation Comments PARATHYROID HORMONE INTACT 57.2 pg/mL 8.5-72.5 (BEAKER) (test code = 577) Effective 07/04/2014: Reference Range ChangeNew: 8.5-72.5 Previous: 15.0-90.0 CARDIOLIPIN ANTIBODIES, IGG AND [id number] 22:36:00 Test Item Value Reference Range Interpretation Comments ANTICARDIOLIPIN IGG ANTIBODY (BEAKER) < GPL (test code = 712) ANTICARDIOLIPIN IGM ANTIBODY (BEAKER) 2.8 MPL (test code = 713) Anticardiolipin IgG Result Interpretation:NEG: <20 GPL; U/mlPOS: >/=20 GPL; U/mlAnticardiolipin IgM Result Interpretation:NEG: <20 MPL; U/mlPOS: >/=20 MPL; U/mlPOCT-GLUCOSE [id number] 21:25:00 Test Item Value Reference Range Interpretation Comments POC-GLUCOSE METER 198 mg/dL 70-110 H TESTED AT [place] [address] ([facility]) (test code = [facility] 1538) [address] POCT-GLUCOSE [id number] 16:29:00 Test Item Value Reference Range Interpretation Comments POC-GLUCOSE METER 296 mg/dL 70-110 H TESTED AT [place] [address] ([facility]) (test code = [facility] 1538) [address] ANTI-NUCLEAR ANTIBODY (MARY)2017-03-18 15:30:00 Test Item Value Reference Range Interpretation Comments ANTI-NUCLEAR ANTIBODY (MARY) [facility] Negative Negative (test code = 418) HEXAGONAL [id number] 13:21:00 Test Item Value Reference Range Interpretation Comments HEXAGONAL PHOSPHOLIPID (BEAKER) Negative (test code = 1790) POCT-GLUCOSE [id number] 12:15:00 Test Item Value Reference Range Interpretation Comments POC-GLUCOSE METER 140 mg/dL 70-110 H TESTED AT [place] [address] ([facility]) (test code = [facility] 1538) [address] PROTEIN C [id number] 11:44:00 Test Item Value Reference Range Interpretation Comments PROTEIN C ACTIVITY (BEAKER) (test 155.0 % 70.0-130.0 H code = 582) Effective 12/20/2013: Reference Range Change-Adult onlyNew: 70.0-130.0 Previous: 70.0-140.0See Protein C Antigen.ANTITHROMBIN [id number] 11:43:00 Test Item Value Reference Range Interpretation Comments ANTITHROMBIN III ACTIVITY (BEAKER) 87.0 % 80.0-120.0 (test code = 711) Effective 12/20/2013: Reference Range Change-Adult onlyNew: 80.0-120.0 Previous: 90.0-128.0POCT-GLUCOSE [id number] 08:17:00 Test Item Value Reference Range Interpretation Comments POC-GLUCOSE METER 107 mg/dL 70-110 TESTED AT [facility] 6720 (BEAKER) (test code = [place] 1538) [address] BASIC METABOLIC [id number] 06:32:00 Test Item Value Reference Range Interpretation [...] PATIEN TS. CBC W/PLT COUNT & AUTO [id number] 05:56:00 Test Item Value Reference Range Interpretation [...] PERCENT (BEAKER) (test code = 2801) POCT-GLUCOSE [id number] 04:32:00 Test Item Value Reference Range Interpretation Comments POC-GLUCOSE METER 107 mg/dL 70-110 TESTED AT [place] [address] ([facility]) (test code = [place] [facility] 1538) [address] POCT-GLUCOSE [id number] 22:21:00 Test Item Value Reference Range Interpretation Comments POC-GLUCOSE METER 118 mg/dL 70-110 H TESTED AT [place] [address] ([facility]) (test code = [place] [address] [facility] 1538) [address] POCT-GLUCOSE [id number] 21:22:00 Test Item Value Reference Range Interpretation Comments POC-GLUCOSE METER 52 mg/dL 70-110 L Notified Isabel Ro MD/TESTED AT ([facility]) (test code = [place] [address] [address]AYDA 3137) [facility] [address] MICROALBUMIN, RANDOM [id number] 17:57:00 Test Item Value Reference Range Interpretation Comments MICROALBUMIN URINE (BEAKER) (test > mg/dL code = 1794) Reference Range: No NormalsURINALYSIS W/ [id number] 17:36:00 Test Item Value Reference Range Interpretation [...] 516) SOURCE(BEAKER) (test code = Urine, Voided 1674) SCREEN, [id number] 17:36:00 Test Item Value Reference Range Interpretation Comments TEST URINE (BEAKER) (test Negative code = 583) CREATININE, RANDOM [id number] 17:35:00 Test Item Value Reference Range Interpretation Comments CREATININE URINE (BEAKER) (test 33.9 mg/dL code = 375) Reference Range: No NormalsSODIUM, RANDOM [id number] 17:35:00 Test Item Value Reference Range Interpretation Comments SODIUM URINE (BEAKER) (test code = 63 meq/L 243) Reference Range: No NormalsPOCT-GLUCOSE [id number] 17:34:00 Test Item Value Reference Range Interpretation Comments POC-GLUCOSE METER 118 mg/dL 70-110 H TESTED AT [place] [address] ([facility]) (test code = [place] [facility] 1538) [address] POCT-GLUCOSE [id number] 13:28:00 Test Item Value Reference Range Interpretation Comments POC-GLUCOSE METER 71 mg/dL 70-110 TESTED AT [place] [address] ([facility]) (test code = [place] [place] [facility] [address] 1538) POCT-GLUCOSE [id number] 10:37:00 Test Item Value Reference Range Interpretation Comments POC-GLUCOSE METER 144 mg/dL 70-110 H TESTED AT [place] [address] ([facility]) (test code = [place] [place] [facility] 1538) [address] POCT-GLUCOSE [id number] 07:18:00 Test Item Value Reference Range Interpretation Comments POC-GLUCOSE METER 60 mg/dL 70-110 L TESTED AT [place] [address] ([facility]) (test code = [facility] [place] [facility] [address] 1538) CBC W/PLT COUNT & AUTO [id number] 05:51:00 Test Item Value Reference Range Interpretation [...] (BEAKER) (test code = 2801) BASIC METABOLIC [id number] 05:51:00 Test Item Value Reference Range Interpretation [...] NOT APPLICABLE FOR DIALYSIS PATIEN TS. POCT-GLUCOSE [id number] 21:41:00 Test Item Value Reference Range Interpretation Comments POC-GLUCOSE METER 287 mg/dL 70-110 H TESTED AT [facility] 6720 (BEAKER) (test code = [place] 1538) [address] BASIC METABOLIC [id number] 12:35:00 Test Item Value Reference Range Interpretation [...] report . CBC W/PLT COUNT & AUTO [id number] 04:54:00 Test Item Value Reference Range Interpretation [...] 0-1 PERCENT (BEAKER) (test code = 2801) [id number] 20:17:00 Test Item Value Reference Range Interpretation Comments RPR SCREEN (BEAKER) (test code = Nonreactive Nonreactive 420) POCT-GLUCOSE [id number] 18:09:00 Test Item Value Reference Range Interpretation Comments POC-GLUCOSE METER 215 mg/dL 70-110 H TESTED AT [facility] 6720 (BEAKER) (test code = [place] 1538) [address] CBC W/PLT COUNT & AUTO [id number] 11:54:00 Test Item Value Reference Range Interpretation [...] (BEAKER) (test code = Normal 762) SEDIMENTATION [id number] 10:27:00 Test Item Value Reference Range Interpretation Comments SEDIMENTATION RATE, ERYTHROCYTE 79 mm/HR 0-20 H (BEAKER) (test code = 766) HEMOGLOBIN [id number] 09:33:00 Test Item Value Reference Range Interpretation Comments HEMOGLOBIN A1C (BEAKER) (test code = 9.8 % 4.3-6.1 H 368) VITAMIN [id number] 09:14:00 Test Item Value Reference Range Interpretation Comments VITAMIN B12 (BEAKER) (test code = 1790 pg/mL 213-816 H 774) TSH/FREE T4 IF [id number] 09:14:00 Test Item Value Reference Range Interpretation Comments THYROID STIMULATING HORMONE 1.08 uIU/mL 0.35-4.94 (BEAKER) (test code = 772) BASIC METABOLIC [id number] 08:52:00 Test Item Value Reference Range Interpretation [...] DATA TO CALCULA TE ESTIMATED GFR. FastingLIPID [id number] 08:51:00 Test Item Value Reference Range Interpretation [...] High 160-189 Very High >=190 FastingHCG, QUANTITATIVE, [id number] 01:43:00 Test Item Value Reference Range Interpretation Comments GONADOTROPIN, CHORIONIC (HCG) QUANT < mIU/mL 0-10 (BEAKER) (test code = 649) Non- Females: <10 mIU/mL Females: Gestation Age Reference Range(mIU/mL) 0.2-1 Week 5-50 1-2 Weeks 50-500 2-3 Weeks 100-5,000 3-4Weeks 500-10,000 4-5 Weeks 1,000-50,000 5-6 Weeks 10,000-100,000 6-8 Weeks 15,000-200,000 2-3 Months 10,000-100,000COMPREHENSIVE METABOLIC [id number] 21:57:00 Test Item Value Reference Range Interpretation [...] meq/L 98-107 (test code = 382) CO2 ([facility]) (test 25 meq/L 22-29 code = 355) BLOOD UREA NITROGEN 21 mg/dL 7-21 ([facility]) (test code = 354) CREATININE (AKER) 2.00 mg/dL 0.57-1.25 H (test code = 358) GLUCOSE RANDOM 285 mg/dL 70-105 H ([facility]) (test code = 652) CALCIUM ([facility]) 7.9 mg/dL 8.4-10.2 L (test code = 697) AST (SGOT) ([facility]) 16 U/L 5-34 (test code = 353) ALT (SGPT) ([facility]) 14 U/L 6-55 (test code = 347) EGFR ([facility]) (test mL/min/1.73 INSUFFIC IENT code = 1092) sq m CLINICAL DATA T O CALCULATE ESTIM ATED GFR. Unit CollectPOCT-GLUCOSE [id number] 21:50:00 Test Item Value Reference Range Interpretation Comments POC-GLUCOSE METER 278 mg/dL 70-110 H TESTED AT [facility] 6720 ([facility]) (test code = [place] 1538) [id number]
[2021-11-05 15:21] LABS: Absolute Lymphocytes (CBC) 0.8 K/uL (0.7-4.9); Hematocrit 36.6 % (36.0-45.0); Lymphocytes % 5.9 % (15.3-44.8); MPV 9.8 fL (7.6-11.3); RBC Red Blood Cell Count 3.77 M/uL (3.86-4.86)
[2021-11-05 15:30] LABS: Arterial Blood Carboxyhemoglob 1.5 % (0-1.5); Blood Gas Oxyhemoglobin 83.3 % (94-97); Blood O2 Saturation 85.7 % (92-98.5)
[2021-11-05 16:13] LABS: Blood Morphology Comment NOT SEEN (NOT SEEN); Platelet Estimate ADEQ; White Blood Cell Scan OK (OK)
[2021-11-05 16:52] LABS: Magnesium 2.7 mg/dL (1.8-2.4)
[2021-11-05 16:53] LABS: Potassium 6.1 mmol/L (3.5-5.1)
--- NOTE | 2021-11-05 16:58 | ER ---
Nurse's Notes [facility] Name: Archana Woo Age: 46 yrs Sex: Female : 1975 Arrival Date: 11/05/2021 Time: 14:35 Bed 5 Private MD: Diagnosis: End stage renal disease;Hyperkalemia;Acidosis;Uremia;Altered mental status, unspecified Presentation: 11/05 14:35 Chief complaint: EMS states: Patient last received dialysis on the , patient jg9 revoked her hospice this morning, patient was breathing 3 times per minute from the morphine she was receiving through hospice and the patient is altered. Patient revoked her hospice to her sister who is on her way up here. Coronavirus screen: Vaccine status: Patient reports receiving the 2nd dose of the covid vaccine. Ebola Screen: Patient negative for fever greater than or equal to 101.5 degrees Fahrenheit, and additional compatible Ebola Virus Disease symptoms Patient denies exposure to infectious person. Patient denies travel to an Ebola-affected area in the 21 days before illness onset. Initial Sepsis Screen: Does the patient meet any 2 criteria? Altered Mental Status. No. Patient's initial sepsis screen is negative. Does the patient have a suspected source of infection? No. Patient's initial sepsis screen is negative. Risk Assessment: Do you want to hurt yourself or someone else? Patient reports no desire to harm self or others. Onset of symptoms is unknown. 14:35 Method Of Arrival: EMS: [facility] jg9 14:35 Acuity: TARUN 2 jg9 Triage Assessment: 14:35 General: Appears in no apparent distress. Behavior is lethargic-patient is aroused with jg9 verbal stimulation and able to answer questions however she drifts off to sleep mid sentence. . [employer]MP[employer]: 14:57 LMP N/A - Irregular menses jg9 Historical: - Allergies: 14:55 Zestoretic; jg9 - PMHx: 14:54 BLIND; CVA; Depression; Diabetes - NIDDM; DIALYSIS MWF; GERD; Hyperlipidemia; left arm jg9 paralysis; neuropathy; Hypertension; THYROID CANCER; TIA; dialysis W \\T\\ F; - PSHx: 14:54 right aka; jg9 - Immunization history:: Client reports receiving the 2nd dose of the Covid vaccine, Pneumococcal vaccine is up to date, Flu vaccine is up to date. - Family history:: not pertinent. - Social history:: Smoking status: unknown. - Hospitalizations: : No recent hospitalization is reported. Screenin:56 Abuse screen: Denies threats or abuse. Denies injuries from another. Nutritional jg9 screening: No deficits noted. Tuberculosis screening: No symptoms or risk factors identified. Fall Risk Fall in past 12 months (25 points). Secondary diagnosis (15 points) CVA, Mental Status- Overestimates/Forgets Limitations (15 pts.). Assessment: 15:22 Reassessment: No changes from previously documented assessment. Pain: Denies pain. jg9 20:15 Reassessment: Patient and/or family updated on plan of care and expected duration. Pain lg3 level reassessed. General: Appears in no apparent distress. comfortable, Behavior is calm, cooperative, flat, arousal to verbal stimuli but quickly falls back asleep . Neuro: Level of Consciousness is obeys commands, lethargic. Respiratory: Airway is patent Trachea midline Respiratory effort is even, unlabored, Respiratory pattern is regular, bradypnea. Vital Signs: 14:35 BP 159 / 55; Pulse 83; Resp 10 S; Temp 97.6(O); Pulse Ox 100% on 2 lpm NC; Weight 72.57 jg9 kg (R); Height 5 ft. 4 in. (162.56 cm); Pain 0/10; 14:45 BP 123 / 59; Pulse 85; Resp 13 S; Pulse Ox 98% on R/A; jg9 15:00 BP 129 / 50; Pulse 87; Resp 14 S; Pulse Ox 97% on R/A; jg9 19:34 BP 135 / 61; Pulse 92; Resp 11 S; Pulse Ox 98% on R/A; lg3 14:35 Body Mass Index 27.46 (72.57 kg, 162.56 cm) jg9 ED Course: 14:35 Patient arrived in ED. iw 14:38 Russ Canales MD is Attending Physician. rn 14:49 Elissa Collins RN is Primary Nurse. jg9 14:54 Triage completed. jg9 14:57 Arm band placed on right wrist. jg9 14:57 Patient has correct armband on for positive identification. Bed in low position. Call jg9 light in reach. Side rails up X 1. 15:02 XRAY Chest (1 view) In Process Unspecified. EDMS 15:22 Inserted saline lock: 22 gauge in right wrist, using aseptic technique. infiltrated. jg9 16:40 No apparent distress. Resting quietly. Pt visited by sister. jg9 16:56 Everett Chan MD is Hospitalizing Provider. rn 17:15 Inserted saline lock: 22 gauge in right forearm, using aseptic technique. jg9 17:31 COVID-19 SARS RT PCR (Document "Date of Onset" if Symptomatic) Sent. jg9 20:51 Notified ED physician of a critical lab result(s). phosph 13.3 Notified the Hospitalist tw5 of a critical lab result(s), phos 13.3. 21:31 BMP Sent. as6 11/06 10:02 No provider procedures requiring assistance completed. ap3 Administered Medications: 11/05 17:19 Drug: Sodium Bicarbonate 1 amp Route: IVP; Site: right forearm; jg9 17:44 Follow up: Response: No adverse reaction jg9 17:20 Drug: Dextrose 10 % in Water 250 ml Route: IV; Rate: bolus; Site: right forearm; jg9 17:43 Follow up: IV Status: Completed infusion; IV Intake: 250ml jg9 17:25 Drug: Albuterol 2.5 mg Route: Inhalation; jg9 17:43 Follow up: Response: No adverse reaction jg9 17:28 Drug: Insulin Regular Human 5 units {Co-Signature: jh6 (Elissa Ca RN).} Route: jg9 IVP; Site: right forearm; 18:03 Follow up: Response: No adverse reaction jg9 17:29 Drug: NARcan (naloxone) 0.4 mg Route: IVP; Site: right forearm; jg9 17:53 Follow up: Response: No adverse reaction; RASS: Alert and Calm (0) jg9 17:32 CANCELLED (not availablee): D50W 50 ml IVP once; (1 amp) jg9 21:31 Drug: D5W 1000 ml, Sodium Bicarbonate 150 mEq Route: IV; Rate: 75 ml/hr; Site: right as6 forearm; 22:38 Follow up: IV Status: Infusion continued upon admission as6 11/06 00:37 Drug: Zosyn (piperacillin-tazobactam) 3.375 grams Route: IVPB; Infused Over: 60 mins; as6 Site: right forearm; 05:04 Follow up: Response: No adverse reaction; IV Status: Completed infusion; IV Intake: as6 100ml 03:00 Drug: Benadryl (diphenhydrAMINE) 25 mg Route: IVP; Site: right wrist; lg3 03:00 Follow up: Response: No adverse reaction lg3 04:30 Drug: vancoMYCIN 1 grams Route: IVPB; Infused Over: 2 hrs; Site: right forearm; as6 06:50 Follow up: Response: No adverse reaction; IV Status: Completed infusion; IV Intake: lg3 250ml 04:52 Drug: SOLU-Medrol (methylPrednisoLONE) 125 mg Route: IVP; Site: right wrist; lg3 04:52 Follow up: Response: No adverse reaction lg3 04:52 Drug: Benadryl (diphenhydrAMINE) 25 mg Route: IVP; Site: right wrist; lg3 04:52 Follow up: Response: No adverse reaction lg3 04:52 Drug: Pepcid (famotidine) 20 mg Route: IVP; Site: right wrist; lg3 04:52 Follow up: Response: No adverse reaction lg3 Intake: 11/05 17:43 IV: 250ml; Total: 250ml. jg9 11/06 05:04 IV: 100ml; Total: 350ml. as6 06:50 IV: 250ml; Total: 600ml. lg3 Outcome: 11/05 16:57 Decision to Hospitalize by Provider. rn 11/06 10:02 Admitted to ICU accompanied by nurse, accompanied by tech, via stretcher, on monitor, ap3 with chart. Condition: stable Discharge instructions given to patient, family, Instructed on the need for admit, Demonstrated understanding of 10:02 Patient left the ED. ap3 Signatures: Dispatcher [employer] EDMS Margarita Wheatley RN RN iw Nieto, Roman, MD MD rn Prokisch, Amanda, RN RN ap3 Marizol Hernandez RN RN lg3 Yara King tw5 Ari Chakraborty RN RN as6 Elissa Collins RN RN jg9 Elissa Ca RN jh6 Corrections: (The following items were deleted from the chart) 11/05 17:31 15:22 Inserted saline lock: 22 gauge in right wrist, using aseptic technique. jg9 jg9
--- NOTE | 2021-11-05 16:58 | EDPHYS ---
Physician Documentation [facility] Name: Archana Woo Age: 46 yrs Sex: Female : 1975 Arrival Date: 11/05/2021 Time: 14:35 Bed 5 Private MD: ED Physician Russ Canales HPI: 11/05 14:54 This 46 yrs old Female presents to ER via EMS with complaints of sob. rn 14:54 The patient has shortness of breath at rest. Onset: The symptoms/episode began/occurred rn at an unknown time. Duration: The symptoms are continuous. The patient's shortness of breath is aggravated by nothing, is alleviated by nothing. Associated signs and symptoms: Pertinent positives: This patient does not have any pertinent positive signs or symptoms associated with shortness of breath. Pertinent negatives: chest pain, fever, hemoptysis. Severity of symptoms: At their worst the symptoms were moderate in the emergency department the symptoms are unchanged. The patient has experienced similar episodes in the past. It is unknown whether or not the patient has recently seen a physician. EMS reports called from [place] for sob, sister told [facility] that patient would like to revoke her hospice, was having trouble breathing, and thought needed dialysis. Pt was given morphine at 0900 today, EMS noted bradypnea. On oxygen concentrator at [facility]. Patient denies pain. Denies vomiting/diarrhea. Complains only of difficulty breathing and itching.. 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 - Family history:: not pertinent. - Social history:: Smoking status: unknown. - Hospitalizations: : No recent hospitalization is reported. ROS: 14:54 Constitutional: Negative for fever, chills, and weight loss, Eyes: Negative for injury, rn pain, redness, and discharge, Neck: Negative for injury, pain, and swelling, Cardiovascular: Negative for chest pain, palpitations, and edema, Respiratory: Negative for pleuritic chest pain, + for sob Abdomen/GI: Negative for abdominal pain, nausea, vomiting, diarrhea, and constipation, Back: Negative for injury and pain, MS/Extremity: Negative for injury and deformity, Skin: Negative for injury, rash, and discoloration, Neuro: Negative for headache, numbness, tingling, and seizure. Exam: 14:54 Constitutional: Pt somnolent, wakens to voice and tactile stimulation Head/Face: rn Normocephalic, atraumatic. Eyes: Periorbital areas with no swelling, redness, or edema. ENT: + dry MM Cardiovascular: Regular rate and rhythm. No pulse deficits. Respiratory: + slow respiratory effort, but speaks full sentences when awake. Abdomen/GI: soft, non-tender, non-distended, + multiple abdominal wall excoriations. Skin: Warm, dry MS/ Extremity: No cyanosis, RLE amputation Neuro: Awake and alert, GCS 15 16:16 ECG was reviewed by the Attending Physician. rn Vital Signs: 14:35 BP 159 / 55; Pulse 83; Resp 10 S; Temp 97.6(O); Pulse Ox 100% on 2 lpm NC; Weight 72.57 jg9 kg (R); Height 5 ft. 4 in. (162.56 cm); Pain 0/10; 14:45 BP 123 / 59; Pulse 85; Resp 13 S; Pulse Ox 98% on R/A; jg9 15:00 BP 129 / 50; Pulse 87; Resp 14 S; Pulse Ox 97% on R/A; jg9 19:34 BP 135 / 61; Pulse 92; Resp 11 S; Pulse Ox 98% on R/A; lg3 14:35 Body Mass Index 27.46 (72.57 kg, 162.56 cm) jg9 MDM: 14:38 Patient medically screened. rn 16:55 Differential diagnosis: pulmonary edema, acidosis, hyperkalemia, overmedication from rn morphine, uremia. Data reviewed: vital signs, nurses notes, lab test result(s), EKG, and as a result, I will admit patient. Counseling: I had a detailed discussion with the patient and/or guardian regarding: the historical points, exam findings, and any diagnostic results supporting the discharge/admit diagnosis, lab results, the need for further work-up and treatment in the hospital. Response to treatment: the patient's symptoms have mildly improved after treatment, and as a result, I will admit patient. Admission orders: after a detailed discussion of the patient's condition and case, the admit orders are written by me. ED course: Pt admitted for ESRD, missed 2 weeks of dialysis, needs emergent dialysis for acidosis/hyperkalemia. . 17:04 ED course: Pt continues to have prolonged apneic episodes, may be 2/2 uremia and toxins rn from missing dialysis x 2 weeks, but also getting morphine scheduled, will try small dose of narcan as not to cause seizure. . 17:23 ED course: Pt with good response to narcan, sitting up, slightly nauseated. rn 18:17 ED course: REpeat glucose in 120s. COnfirmed with hospitalist that nephrology was rn consulted for emergent dialysis. . 11/05 14:39 Order name: CBC with Diff; Complete Time: 16:15 rn 11/05 14:39 Order name: Basic Metabolic Panel; Complete Time: 16:55 rn 11/05 14:39 Order name: Magnesium; Complete Time: 16:55 rn 11/05 14:39 Order name: ABG; Complete Time: 15:52 rn 11/05 14:39 Order name: BNP; Complete Time: 16:55 rn 11/05 15:05 Order name: COVID-19 SARS RT PCR (Document "Date of Onset" if Symptomatic) bd 11/05 15:06 Order name: SARS-COV-2 RT PCR; Complete Time: 16:15 EDNE 11/05 16:13 Order name: CBC Smear Scan; Complete Time: 16:15 EDMS 11/05 18:02 Order name: Glucose, Ancillary Testing; Complete Time: 18:50 EDMS 11/05 19:05 Order name: Protime (+INR); Complete Time: 21:00 EDNE 11/05 19:15 Order name: Ammonia; Complete Time: 21:00 EDMS 11/05 20:10 Order name: Glucose, Ancillary Testing; Complete Time: 21:00 EDMS 11/05 20:44 Order name: Lipid Profile; Complete Time: 21:00 EDNE 11/05 20:52 Order name: Phosphorus; Complete Time: 21:00 EDMS 11/05 14:39 Order name: XRAY Chest (1 view); Complete Time: 17:05 rn 11/05 20:52 Order name: Magnesium; Complete Time: 21:00 EDMS 11/05 21:05 Order name: BMP jr8 11/05 22:18 Order name: Basic Metabolic Panel; Complete Time: 22:32 EDMS 11/05 22:35 Order name: Blood Culture Adult (2) jr8 11/05 22:46 Order name: Glucose, Ancillary Testing; Complete Time: 07:02 EDMS 11/06 04:05 Order name: CBC with Automated Diff; Complete Time: 07:02 EDMS 11/06 04:20 Order name: Phosphorus; Complete Time: 07:02 EDMS 11/06 04:20 Order name: Magnesium; Complete Time: 07:02 EDMS 11/06 04:31 Order name: Comprehensive Metabolic Panel; Complete Time: 07:02 EDMS 11/06 06:06 Order name: Glucose, Ancillary Testing; Complete Time: 07:02 EDMS 11/06 06:43 Order name: Blood Culture EDMS 11/06 09:49 Order name: Glucose, Ancillary Testing EDMS 11/05 14:39 Order name: IV Start; Complete Time: 18:03 rn 11/05 14:39 Order name: Cardiac monitoring; Complete Time: 15:05 rn 11/05 14:39 Order name: O2 Sat Monitoring; Complete Time: 15:05 rn 11/05 14:39 Order name: O2 Per Protocol; Complete Time: 19:05 rn 11/05 14:39 Order name: EKG; Complete Time: 14:40 rn 11/05 14:39 Order name: EKG - Nurse/Tech; Complete Time: 14:49 rn 11/05 14:40 Order name: Glucose Level; Complete Time: 17:31 rn EC:16 Rate is 90 beats/min. Rhythm is regular. QRS [place] is Normal. MT interval is normal. QRS rn interval is normal. QT interval is normal. No Q waves. T waves are Normal. No ST changes noted. Clinical impression: NSR w/ Non-specific ST/T Changes. Interpreted by me. Reviewed by me. Administered Medications: 17:19 Drug: Sodium Bicarbonate 1 amp Route: IVP; Site: right forearm; jg9 17:44 Follow up: Response: No adverse reaction j9 17:20 Drug: Dextrose 10 % in Water 250 ml Route: IV; Rate: bolus; Site: right forearm; j9 17:43 Follow up: IV Status: Completed infusion; IV Intake: 250ml j9 17:25 Drug: Albuterol 2.5 mg Route: Inhalation; j9 17:43 Follow up: Response: No adverse reaction j9 17:28 Drug: Insulin Regular Human 5 units {Co-Signature: jh6 (Elsisa Ca RN).} Route: jg9 IVP; Site: right forearm; 18:03 Follow up: Response: No adverse reaction 9 17:29 Drug: NARcan (naloxone) 0.4 mg Route: IVP; Site: right forearm; j9 17:53 Follow up: Response: No adverse reaction; RASS: Alert and Calm (0) jg9 17:32 CANCELLED (not availablee): D50W 50 ml IVP once; (1 amp) jg9 21:31 Drug: D5W 1000 ml, Sodium Bicarbonate 150 mEq Route: IV; Rate: 75 ml/hr; Site: right as6 forearm; 22:38 Follow up: IV Status: Infusion continued upon admission as6 11/06 00:37 Drug: Zosyn (piperacillin-tazobactam) 3.375 grams Route: IVPB; Infused Over: 60 mins; as6 Site: right forearm; 05:04 Follow up: Response: No adverse reaction; IV Status: Completed infusion; IV Intake: as6 100ml 03:00 Drug: Benadryl (diphenhydrAMINE) 25 mg Route: IVP; Site: right wrist; lg3 03:00 Follow up: Response: No adverse reaction lg3 04:30 Drug: vancoMYCIN 1 grams Route: IVPB; Infused Over: 2 hrs; Site: right forearm; as6 06:50 Follow up: Response: No adverse reaction; IV Status: Completed infusion; IV Intake: lg3 250ml 04:52 Drug: SOLU-Medrol (methylPrednisoLONE) 125 mg Route: IVP; Site: right wrist; lg3 04:52 Follow up: Response: No adverse reaction lg3 04:52 Drug: Benadryl (diphenhydrAMINE) 25 mg Route: IVP; Site: right wrist; lg3 04:52 Follow up: Response: No adverse reaction lg3 04:52 Drug: Pepcid (famotidine) 20 mg Route: IVP; Site: right wrist; lg3 04:52 Follow up: Response: No adverse reaction lg3 Disposition: 11/05 16:55 Critical Care:. rn Disposition Summary: 11/05/21 16:57 Hospitalization Ordered Hospitalization Status: Inpatient Admission rn Provider: Everett Chan rn Condition: Stable rn Problem: an ongoing problem rn Symptoms: have improved rn Bed/Room Type: Standard rn Location: Intensive Care Unit(11/06/21 08:52) dw Room Assignment: 7-(11/06/21 08:52) Diagnosis - End stage renal disease rn - Hyperkalemia rn - Acidosis rn - Uremia rn - Altered mental status, unspecified rn Forms: - Medication Reconciliation Form rn - SBAR form yarn packer time excluding procedures: 16:55 Critical care time: Bedside Care: 30 minutes, Consultation: 5 minutes, Family rn Intervention: 5 minutes. Total time: 40 minutes Signatures: Dispatcher [employer] Maru Booker RN Russ Diallo MD MD rn Roszak, Josh, PA PA jr8 Tiffany Vasquez, RN RN cg Marizol Hernandez, RN RN lg3 Ari Chakraborty, RN RN as6 Elissa Collins, RN RN jg9 Elissa Ca RN jh6 Corrections: (The following items were deleted from the chart) 15:00 14:54 Constitutional: Pt somnolent, wakens to voice and tactile stimulation Head/Face: rn Normocephalic, atraumatic. Eyes: Periorbital areas with no swelling, redness, or edema. ENT: + dry MM Cardiovascular: Regular rate and rhythm. No pulse deficits. Respiratory: + slow respiratory effort, but speaks full sentences when awake. Abdomen/GI: soft, non-tender, non-distended, + multiple abdominal wall excoriations. Skin: Warm, dry MS/ Extremity: Pulses equal, no cyanosis Neuro: Awake and alert, GCS 15 rn 17:32 16:55 D50W 50 ml IVP once; (1 amp) ordered. rn jg9 19:03 16:57 Telemetry/MedSurg (Inpatient) rn rn 19:03 16:57 rn rn 22:14 19:03 Intensive Care Unit rn cg 22:14 19:03 rn cg 11/06 08:52 11/05 22:14 [facility] ER [facility] cg dw 11/06 08:52 11[facility]05 [facility]
--- NOTE | 2021-11-05 17:03 | RAD REPORT ---
[facility]02 pm CLINICAL HISTORY: sob COMPARISON: none FINDINGS: Medial right base is mildly hazy which may represent a mild infiltrate, atelectasis or con fluence of pulmonary vessels. Left lung appears clear. Heart is normal size
[2021-11-05] MEDS ORDERED: INSULIN -REGULAR HUMAN 50 UNIT/0.5 ML ML ONE (17:10)
[2021-11-05] MEDS ORDERED: D10W 250 ML IV ONE (17:11)
[2021-11-05] MEDS ORDERED: SODIUM BICARB 50 MEQ/50ML VIAL ONE ×2 (17:11→21:16)
[2021-11-05] MEDS ORDERED: NALOXONE 0.4 MG/ML VIAL ONE (17:12)
[2021-11-05] MEDS ORDERED: ALBUTEROL 2.5 MG/3 ML NEB SOL ONE (17:12)
[2021-11-05] MEDS ORDERED: ONDANSETRON 4 MG/2 ML VIAL IV PRN (17:31)
[2021-11-05] MEDS ORDERED: ACETAMINOPHEN 500 MG TAB PO PRN (17:31)
[2021-11-05] MEDS ORDERED: LACTULOSE 20 GM/30 ML UCUP PO PRN (17:37)
[2021-11-05] MEDS ORDERED: LABETALOL 20 MG/4ML SYRINGE IV PRN (17:42)
--- NOTE | 2021-11-05 17:44 | P.HP ---
Certification for Inpatient Patient admitted to: Inpatient With expected LOS: >2 Midnights Patient will require the following post-hospital care: None Practitioner: I am a practitioner with admitting privileges, knowledge of patient current condition, hospital course, and medical plan of care. Services: Services provided to patient in accordance with Admission requirements found in Title 42 Section 412.3 of the Code of Federal Regulations <Radha Lopez - Last Filed: 11/06/21 03:56> Patient History Date of Service: 11/05/21 Reason for admission: AMS and SOB History of Present Illness: Patient is a 46-year-old female with a past medical history significant for ESRD, CVA, depression, DM 2, GERD, hyperlipidemia, blindness, hypertension who presents with complaint of altered mental status and shortness of breath. Patient is a resident of a alf--[facility] home. Patient currently confused and not responding to commands. Patient sister reported that when she visited patient, she noticed that patient was using O2 therapy via cannula. She asked alf staff why she was on oxygen and she was told that patient has been having trouble breathing. Family reported that patient put herself on hospice because she does not want to do dialysis anymore. She also noted that patient was not responding to commands and was confused. Prior to this episode, family reported that patient wanted to revoke hospice and start having dialysis. No other signs or symptoms reported. Symptoms are aggravated or relieved by nothing. [facility] staff called EMS who brought patient to the hospital for medical evaluation. - Past Medical/Surgical History Diabetic: Yes -: ESRD -: HTN -: Thyroid cancer -: Neuropathy -: Blind both eyes -: DM -: Neuropathy -: GERD -: ESRD -: hyperlipidemia -: CVA x3 -: Cholecystectomy -: Thyroidectomy -: Multiple eye surgeries -: -: HD graph left arm -: Right BKA -: right BKA Psychosocial/ Personal History: The patient is . She has 1 child. She is disabled. - Family History Father Notes: thyroid problems Brother -: Hypertension - Social History Alcohol use: No CD- Drugs: No Caffeine use: No <Radha Lopez - Last Filed: 11/06/21 03:56> Date of Service: 11/06/21 <Everett Chan - Last Filed: 11/07/21 08:13> Allergies No Known Allergies Allergy (Verified 05/09/21 01:12) Home Medications: Aspirin 81 mg PO DAILY 12/23/19 Clopidogrel Bisulfate [Plavix*] 75 mg PO DAILY tablet 05/09/21 Codeine/APAP [Tylenol #3*] 1 tab PO Q8HP PRN 05/09/21 Docusate Sodium [Stool Softener] 200 mg PO DAILY 05/09/21 Duloxetine HCl [Cymbalta] 60 mg PO BID 05/09/21 Folic Acid 1 mg PO DAILY 05/09/21 Glucagon,Human Recombinant [Glucagon Emergency Kit] 1 mg IM PRN PRN 05/09/21 Hydroxyzine Hcl [Atarax] 10 mg PO TID PRN 05/09/21 Insulin Aspart See Protocol SQ ACHS 05/09/21 Insulin Detemir [Levemir] 10 units SQ DAILY 05/09/21 Levothyroxine [Synthroid*] 50 mcg PO [id number] 05/09/21 Melatonin 10 mg PO BEDTIME 05/09/21 Meloxicam [Mobic*] 7.5 mg PO 1800 05/09/21 Polyethyl Gly 3350 [Glycolax*] 17 gm PO TID 05/09/21 Sertraline [Zoloft*] 100 mg PO DAILY tab 05/09/21 Sevelamer Carbonate 2 packet PO TIDWM 05/09/21 cloNIDine HCL [Clonidine HCl] 0.1 mg PO BEDTIME 05/09/21 Ascorbic Acid [Vitamin C] 500 mg PO DAILY 07/25/21 Atorvastatin Calcium [Lipitor] 20 mg PO BEDTIME 07/25/21 Folic Acid/Vit B Complex and C [Libby-Guillermo Tablet] 0.8 mg PO DAILY 07/25/21 Gabapentin [Neurontin] 400 mg PO M,W,F 07/25/21 Lactulose 20 gm PO DAILY PRN 07/25/21 Mirtazapine [Remeron] 30 mg PO BEDTIME 07/25/21 Patiromer Calcium Sorbitex [Veltassa] 8.4 gm PO DAILY 07/25/21 Zinc Sulfate [Zinc Sulfate*] 220 mg PO DAILY 07/25/21 Review of Systems is unable to be obtained (Patient confused and unable to answer questions) <Radha Lopez - Last Filed: 11/06/21 03:56> Physical Examination - Physical Exam General: Oriented x1 HEENT: PERRLA Neck: Without JVD or thyroid abnormality Respiratory: Diminished Cardiovascular: Normal pulses, Regular rate/rhythm Capillary refill: <2 Seconds Gastrointestinal: Normal bowel sounds Musculoskeletal: No clubbing, No erythema, No tenderness Integumentary: No breakdown, No tenderness/swelling, No ulcers Neurological: Normal gait, Normal strength at 5/5 x4 extr Lymphatics: No axilla or inguinal lymphadenopathy - Studies Laboratory Data (last 24 hrs) 11/05/21 16:23: Sodium 130 L, Potassium 6.1 H*, BUN 117 H, Creatinine 20.30 H*, Glucose 86, Magnesium 2.7 H 11/05/21 14:50: WBC 13.50 H, Hgb 12.4, Hct 36.6, Plt Count 243 <TobyraulRadha E - Last Filed: 11/06/21 03:56> Assessment and Plan - Plan --Metabolic encephalopathy. Likely secondary to missed dialysis. Patient has missed 4 hemodialysis sessions. Nephrology consulted for urgent hemodialysis. Continue supportive care. --Acute respiratory failure with hypoxia. Secondary to volume overload due to missed dialysis. Nephrology consulted for urgent hemodialysis. --ESRD. On MWF schedule. Further management per nephrology. --DM2 with Neuropathy. BS monitoring with sliding scale insulin and Lantus. Continue Gabapentin for her Neuropathy --Bilateral eye blindness. Continue supportive care. --GERD. Continue home medication when appropriate --History of CVA. Continue aspirin, plavix and statin when appropriate --Right BKA. Continue supportive care --HLD.Continue statin. when appropriate --Hypothyroidism. Continue Synthroid when appropriate --Depression.Continue home medication when appropriate --Hypertension. Stable. Continue home medications when appropriate. --Hyperkalemia. Kayexalate x1 dose. Further management per drop wire hanger. --Hx of constipation. Continue home medications when appropriate --Suspected pneumonia. Noted on chest x-ray. Patient placed on antibiotics and steriods. Continue O2 therapy. --Leukocytosis. Blood cultures pending. Continue antibiotics --Hypertension. Stable. Continue home medications. --Metabolic acidosis. Secondary to missed dialysis. Patient given Bicarb in the ER. Further management per drop wire hanger --DVT prophylaxis with heparin subQ Discharge Plan: Retirement Plan to discharge in: 72 Hours - Advance Directives Does patient have a Living Will: No Does patient have a Durable POA for Healthcare: No - Code Status/Comfort Care Code Status Assessed: Yes Code Status: Full Code <Radha Lopez - Last Filed: 11/06/21 03:56> Date of Service: 11/06/21 Subjective: HPI as mentioned above Physical Examination: Vitals: Afebrile vital signs are stable Physical exam: Cardiovascular: Within normal limits. Lungs: Within normal limits Abdomen: Within normal limits Neuro: Awake, alert, oriented to person place and time Assessment: 1. ESRD 2. History of palliative care-possibly revoked Plan: 1. Continue with current plan of care as mentioned above <Everett Chan - Last Filed: 11/07/21 08:13>
[2021-11-05] MEDS: INSULIN -REGULAR HUMAN 50 UNIT/0.5 ML ML SQ SCH ×2 (17:45→21:45)
[2021-11-05 19:05] LABS: Protime INR 1.05
[2021-11-05 20:45] LABS: Magnesium 2.5 mg/dL (1.8-2.4)
[2021-11-05 20:51] LABS: Phosphorus 13.3 mg/dL (2.5-4.9)
[2021-11-05] MEDS: ATORVASTATIN 20 MG TAB PO SCH (21:00)
[2021-11-05] MEDS: POLYETHYL GLY 3350 17 GM/DOSE PO SCH (21:00)
[2021-11-05] MEDS: HEPARIN 5000 UNIT/ML 1 ML VIAL SQ SCH (21:00)
[2021-11-05] MEDS ORDERED: cloNIDine HCL 0.1 MG TAB PO SCH (21:00)
[2021-11-05] MEDS ORDERED: D5W 1,000 ML IV ONE (21:15)
[2021-11-05 22:18] LABS: Potassium 5.8 mmol/L (3.5-5.1)
[2021-11-05] MEDS ORDERED: HEPARIN 5000 UNIT/ML 1 ML VIAL ONE (23:13)
[2021-11-05] MEDS ORDERED: PIPERACIL/TAZO 3.375 GM VIAL IV ONE (23:14)
[2021-11-05] MEDS ORDERED: NA CHLORIDE 0.9% 250 ML ONE (23:14)
[2021-11-05] MEDS ORDERED: NA CHLORIDE 0.9% 100 ML IV ONE (23:14)
[2021-11-05] MEDS ORDERED: VANCOMYCIN 1 GM/VIAL ONE (23:14)
[2021-11-06 00:36] VITALS: BMI 27.4
[2021-11-06] MEDS: INSULIN -REGULAR HUMAN 50 UNIT/0.5 ML ML SQ SCH ×6 (01:45→20:55)
[2021-11-06] MEDS ORDERED: DIPHENHYDRAMINE 50 MG/ML VIAL ONE ×2 (03:00→04:48)
[2021-11-06 04:04] LABS: Absolute Lymphocytes (CBC) 0.3 K/uL (0.7-4.9); Hematocrit 31.6 % (36.0-45.0); Lymphocytes % 4.1 % (15.3-44.8); MPV 9.1 fL (7.6-11.3); RBC Red Blood Cell Count 3.33 M/uL (3.86-4.86)
[2021-11-06 04:20] LABS: Magnesium 2.3 mg/dL (1.8-2.4); Phosphorus 7.2 mg/dL (2.5-4.9)
[2021-11-06 04:29] LABS: Albumin 2.6 g/dL (3.4-5.0); Potassium 3.9 mmol/L (3.5-5.1); Protein, Total 7.4 g/dL (6.4-8.2)
[2021-11-06] MEDS ORDERED: METHYLPREDNISOLONE 125 MG INJ ONE (04:48)
[2021-11-06] MEDS ORDERED: FAMOTIDINE 20 MG/2 ML VIAL IV ONE (04:48)
[2021-11-06] MEDS: LEVOTHYROXINE SOD 0.05 MG TABLET PO SCH (06:00)
[2021-11-06] MEDS: SEVELAMER CARBONATE PO SCH ×3 (08:00→16:58)
[2021-11-06] MEDS: CLOPIDOGREL 75 MG TABLET PO SCH (09:00)
[2021-11-06] MEDS: METHYLPREDNISOLONE 40 MG INJ IV SCH ×2 (09:00→17:09)
[2021-11-06] MEDS: ASPIRIN 81 MG CHEWABLE TABLET PO SCH (09:00)
[2021-11-06] MEDS: FOLIC ACID 1 MG TABLET PO SCH (09:00)
[2021-11-06] MEDS: POLYETHYL GLY 3350 17 GM/DOSE PO SCH ×3 (09:00→20:43)
[2021-11-06] MEDS: HEPARIN 5000 UNIT/ML 1 ML VIAL SQ SCH ×2 (09:00→20:56)
[2021-11-06] MEDS: INSULIN GLARGINE 100 UNIT/ML SQ SCH (09:00)
[2021-11-06] MEDS: MULTIVITAMINS,THERAPEUT 1 TAB PO SCH (09:00)
[2021-11-06] MEDS: ZINC SULFATE 220 MG CAP PO SCH (09:00)
[2021-11-06] MEDS: ASCORBIC ACID 500 MG TABLET PO SCH (09:00)
[2021-11-06] MEDS: DOCUSATE NA 100 MG CAP PO SCH (09:00)
[2021-11-06] MEDS ORDERED: HOME MED 1 EA UNK (Folic Acid/Vit B Complex And C [Rena-Vite Tablet] 0.8 MG Tablet) PO SCH (09:00)
[2021-11-06] MEDS: AZITHROMYCIN IV 500 MG in NA CHLORIDE 0.9% 250 ML IVPB SCH (09:00)
[2021-11-06] MEDS ORDERED: HOME MED 1 EA UNK (Insulin Detemir [Levemir] 100 UNIT/1 ML Ml) SQ SCH (09:00)
[2021-11-06] MEDS: CEFTRIAXONE 1,000 MG in NA CHLORIDE 0.9% 50 ML IVPB SCH (09:00)
[2021-11-06] MEDS ORDERED: HEPARIN 5000 UNIT/ML 1 ML VIAL ONE (09:01)
[2021-11-06] MEDS ORDERED: ASCORBIC ACID 500 MG TABLET ONE (09:01)
[2021-11-06] MEDS ORDERED: INSULIN GLARGINE 100 UNIT/ML SQ ONE (09:01)
[2021-11-06] MEDS ORDERED: AMIODARONE HCL 200 MG TAB ONE (09:02)
[2021-11-06] MEDS ORDERED: FOLIC ACID 1 MG TABLET ONE (09:02)
[2021-11-06] MEDS ORDERED: CLOPIDOGREL 75 MG TABLET ONE (09:03)
[2021-11-06] MEDS ORDERED: ZINC SULFATE 220 MG CAP ONE (09:03)
[2021-11-06] MEDS ORDERED: METHYLPREDNISOLONE 40 MG INJ ONE (09:03)
[2021-11-06] MEDS ORDERED: AZITHROMYCIN 500 MG INJ IVPB ONE (09:03)
[2021-11-06] MEDS ORDERED: CEFTRIAXONE 1000 MG/VIAL ONE (09:03)
[2021-11-06] MEDS ORDERED: NA CHLORIDE 0.9% 250 ML ONE (09:04)
[2021-11-06] MEDS ORDERED: NA CHLORIDE 0.9% 50 ML ONE (09:04)
[2021-11-06] MEDS ORDERED: ASPIRIN 81 MG CHEWABLE TABLET ONE (09:04)
[2021-11-06] MEDS ORDERED: D5W 1,000 ML IV SCH (11:00)
[2021-11-06] MEDS ORDERED: GUAIFENESIN/CODEINE 5ML UCUP PO PRN (11:15)
[2021-11-06] MEDS ORDERED: SOD POLYSTYREN SUL 15 GM/60 ML UCUP PO ONE (11:15)
[2021-11-06] MEDS ORDERED: MIDODRINE HCL 5 MG TABLET PO PRN (11:37)
--- NOTE | 2021-11-06 13:19 | CON ---
Reason For Consultation: Hyperkalemia, severe acidosis, end-stage renal disease. History Of Present Illness: All the information has been obtained from the record. The patient is s till confused. This is a 46-year-old female, well known to me from the dialysis and previous admissi on with significant past medical history of hypertension, diabetes complicated with neuropathy, retin opathy, and nephropathy, legally blind, peripheral vascular disease status post right below-knee ampu tation, hypertension, hyperlipidemia, end-stage renal disease, poor compliant with dialysis, dialysis Thursday, Thursday, Thursday at [facility] through left arm AV fistula, CVA, and GERD. The patient was brought to the hospital. The patient missed dialysis for almost 2 weeks. Upon arriv al to the hospital, the patient obtunded, confused. Primary workup showed severe hyperkalemia 6.1 wi th acidosis, bicarb down to the 12, and BUN up to above 100. For that reason, we have been consulted . We took the patient for urgent dialysis. The patient tolerated the dialysis very well. Today, patient is still confused. Denied any other complaints. No focality on her exam. Past Medical History: Includes; 1.End-stage renal disease, on hemodialysis, Thursday, Thursday, Thursday. 2.Hypertension. 3.Diabetes complicated with neuropathy, retinopathy, legally blind, nephropathy, on dialysis. 4.PAD, status post right below-knee amputation. 5.CVA. Past Surgical History: Includes right below-knee amputation, AV fistula creation on the left arm, Pe rmCath placement and removal, thyroidectomy, cholecystectomy, , multiple eye surgeries. Family History: Positive for diabetes and hypertension. Social History: [facility] [place]. Denied smoking. Denied drinking. Denied drug abuse. Home Medications: From the penitentiary include aspirin, Plavix, codeine, docusate, folic acid, hydr oxyzine, insulin, levothyroxine, melatonin, meloxicam, Renvela, Zoloft, atorvastatin, gabapentin, john tazapine, zinc sulfate. Review of Systems: None obtainable. Physical Examination: General: When I saw the patient; the patient lying in bed, slightly puffy face, smells ketone. Vital Signs: Blood pressure 81/49, pulse of 74, afebrile. Yesterday on the dialysis, we did not rem ove any fluid. Chest: Clear to auscultation. Heart: S1, S2. Systolic murmur. Abdomen: Soft, nontender. No guarding or rebound. Extremity: Right below-knee amputation, 3+ edema on the left side, as I mentioned above the face. Neuro: Alert. Follows simple command. No focality. Still confused. Laboratory Data: Chest x-ray; marginal cardiomegaly, mild congestion compared to old chest x-ray. N o significant increase in the congestion. WBC 7.9, H and H 10.7/31.6. Sodium 132, potassium 6.1, bi carb 12, BUN 117, creatinine 20.3, calcium 8, magnesium 2.7; this is upon admission. Currently today in the morning; sodium 138, potassium 3.9, bicarb 21, BUN 66, creatinine 12.2, calcium 8.2. Magnesi um 2.3, phosphorus 7.2, albumin 2.6. Current Medications: The patient on include azithromycin, ceftriaxone, Plavix, clonidine, Tylenol, l actulose, zinc sulfate, multivitamin. Assessment And Plan: 1.End-stage renal disease, missed dialysis multiple times, complicated with severe acidosis and hype rkalemia, status post dialysis yesterday, tolerated the dialysis very well. We finished dialysis eduardo und 4 o'clock in the morning. I am going to arrange for another session of dialysis tomorrow and we will follow up. I am going to try to establish better volume control on the patient. We will try to utilize blood pressure to achieve that. 2.Hypertension, currently blood pressure on the lower side. I am going to go ahead and discontinue clonidine, discontinue all blood pressure medications, and we will follow up the patient. I am okay to give midodrine. 3.Anasarca, possible secondary to renal failure and missing dialysis. The patient still has some ur ine output. We will try to achieve better volume control with dialysis. We will start challenging t he patient on dialysis tomorrow. 4.Acidosis, high anion gap metabolic acidosis. Given the presentation of the patient's currently bl ood sugar not elevated, I am going to go ahead and get ABG and depending on that, we will decide if t he patient is going to need further workup. 5.Hypercapnic respiratory failure with high CO2. We will follow up repeated ABG, hold on any sedati on including gabapentin or pain medications and we will follow up. We will send for urea level. 6.Sepsis supported with severe acidosis, low blood pressure. Hold all blood pressure medications. The patient was started on treatment. We will follow up culture. Continue current antibiotics. The patient was dosed with 1 g of vancomycin yesterday. We will follow up. 7.Hyperkalemia, resolved after dialysis. 8.Diabetes as by primary. 9.Altered mental status as above. CASSIE/ANTONIOL Voice ID: [id number] Report ID: [id number]
[2021-11-06] MEDS: ATORVASTATIN 20 MG TAB PO SCH (20:56)
[2021-11-07] MEDS: METHYLPREDNISOLONE 40 MG INJ IV SCH ×3 (00:03→16:26)
[2021-11-07] MEDS: LEVOTHYROXINE SOD 0.05 MG TABLET PO SCH (05:04)
[2021-11-07 07:20] LABS: Albumin 2.8 g/dL (3.4-5.0); Potassium 4.6 mmol/L (3.5-5.1); Thyroid Stimulating Hormone 0.525 uIU/mL (0.360-3.740)
[2021-11-07] MEDS: INSULIN -REGULAR HUMAN 50 UNIT/0.5 ML ML SQ SCH ×2 (07:30→11:30)
--- NOTE | 2021-11-07 07:47 | EKG ---
Test Date: 2021-11-05 Test Time: 14:38:57 Sap Bw Bi Developer: ROMA MEASUREMENT RESULTS: Intervals: Rate: 90 DC: 148 QRSD: 82 QT: 402 QTc: 491 Upham: P: 79 DC: 148 QRS: 71 T: 105 INTERPRETIVE STATEMENTS: Sinus rhythm with premature atrial complexes with aberrant conduction Possible Left atrial enlargement Septal infarct, age undetermined Abnormal ECG Compared to ECG 08/23/2021 15:11:23 Atrial premature complex(es) now present Aberrant conduction of supraventricular beat(s) now present Myocardial infarct finding still present Electronically Signed On 11-07-21 07:41:50 CDT by Elder Tejeda
[2021-11-07] MEDS: SEVELAMER CARBONATE PO SCH ×2 (08:00→11:50)
[2021-11-07] MEDS: MULTIVITAMINS,THERAPEUT 1 TAB PO SCH (09:00)
[2021-11-07] MEDS: HEPARIN 5000 UNIT/ML 1 ML VIAL SQ SCH (09:00)
[2021-11-07] MEDS: CEFTRIAXONE 1,000 MG in NA CHLORIDE 0.9% 50 ML IVPB SCH (09:00)
[2021-11-07] MEDS: CLOPIDOGREL 75 MG TABLET PO SCH (09:00)
[2021-11-07] MEDS: DOCUSATE NA 100 MG CAP PO SCH (09:00)
[2021-11-07] MEDS: INSULIN GLARGINE 100 UNIT/ML SQ SCH (09:00)
[2021-11-07] MEDS: AZITHROMYCIN IV 500 MG in NA CHLORIDE 0.9% 250 ML IVPB SCH (09:00)
[2021-11-07] MEDS: FOLIC ACID 1 MG TABLET PO SCH (09:00)
[2021-11-07] MEDS: ZINC SULFATE 220 MG CAP PO SCH (09:00)
[2021-11-07] MEDS: ASPIRIN 81 MG CHEWABLE TABLET PO SCH (09:00)
[2021-11-07] MEDS: POLYETHYL GLY 3350 17 GM/DOSE PO SCH ×2 (09:00→13:43)
[2021-11-07] MEDS: ASCORBIC ACID 500 MG TABLET PO SCH (09:00)
[2021-11-07] MEDS ORDERED: DIPHENHYDRAMINE 25 MG TAB/CAP PO ONE (09:34)
--- NOTE | 2021-11-07 10:16 | P.PN ---
Subjective Date of Service: 11/06/21 Subjective: No new changes, No C/O voiced, Improving Review of Systems 10-point ROS is otherwise unremarkable Physical Examination - Vital Signs Temperature: 98.0 F Blood Pressure: 148/65 Pulse: 67 Respirations: 18 Pulse Ox (%): 99 - Physical Exam General: Alert, In no apparent distress, Oriented x3 HEENT: Atraumatic, PERRLA, EOMI Neck: Supple, JVD not distended Respiratory: Clear to auscultation bilaterally, Normal air movement Cardiovascular: Regular rate/rhythm, Normal S1 S2 Gastrointestinal: Normal bowel sounds, Soft and benign, Non-distended, No tenderness Musculoskeletal: No clubbing, No swelling, Other (Right below-knee amputation) Integumentary: No rashes Neurological: Sensation intact, Cranial nerves 3-12 intact, Abnormal strength - Studies Medications List Reviewed: Yes Assessment & Plan - Problems (Diagnosis) (1) Altered mental status Current Visit: No Status: Acute Qualifiers: Altered mental status type: unspecified Qualified Code(s): R41.82 - Altered mental status, unspecified (2) Diabetes mellitus type 2 in nonobese Current Visit: No Status: Acute (3) ESRD (end stage renal disease) Current Visit: No Status: Acute (4) History of CVA (cerebrovascular accident) Current Visit: No Status: Acute (5) Obesity Current Visit: No Status: Acute (6) Peripheral vascular disease Current Visit: No Status: Acute (7) TIA (transient ischemic attack) Onset Date: 08/06/17 Current Visit: No Status: Acute (8) Below-knee amputation of right lower extremity Current Visit: No Status: Chronic (9) COPD (chronic obstructive pulmonary disease) Onset Date: 03/03/17 Current Visit: No Status: Chronic Qualifiers: (10) CVA (cerebral vascular accident) Onset Date: 03/09/17 Current Visit: No Status: Chronic Qualifiers: (11) ESRD (end stage renal disease) Current Visit: No Status: Chronic (12) History of CVA (cerebrovascular accident) Current Visit: No Status: Chronic (13) Hyperlipidemia Onset Date: 03/03/17 Current Visit: No Status: Chronic Qualifiers: (14) Hypertension Onset Date: 03/03/17 Current Visit: No Status: Chronic - Plan Plan: 1. Proceed with hemodialysis 2. Patient wants to revoke hospice 3. Return back to [facility] 4. Strict blood pressure control Discharge Plan: Home Plan to discharge in: Greater than 2 days - Advance Directives Does patient have a Living Will: No Does patient have a Durable POA for Healthcare: No - Code Status/Comfort Care Code Status: Full Code Critical Care: No Time Spent Managing PTS Care (In Minutes): 45
--- NOTE | 2021-11-07 10:18 | P.DS ---
Discharge Date: 11/07/21 Disposition: TRANSFER TO CORRECTION Discharge Condition: GOOD Reason for Admission: AMS and SOB Consultations: Nephrology - Problems (1) Altered mental status Current Visit: No Status: Acute Qualifiers: Altered mental status type: unspecified Qualified Code(s): R41.82 - Altered mental status, unspecified (2) Diabetes mellitus type 2 in nonobese Current Visit: No Status: Acute (3) ESRD (end stage renal disease) Current Visit: No Status: Acute (4) History of CVA (cerebrovascular accident) Current Visit: No Status: Acute (5) Obesity Current Visit: No Status: Acute (6) Peripheral vascular disease Current Visit: No Status: Acute (7) TIA (transient ischemic attack) Onset Date: 08/06/17 Current Visit: No Status: Acute (8) Below-knee amputation of right lower extremity Current Visit: No Status: Chronic (9) COPD (chronic obstructive pulmonary disease) Onset Date: 03/03/17 Current Visit: No Status: Chronic Qualifiers: (10) CVA (cerebral vascular accident) Onset Date: 03/09/17 Current Visit: No Status: Chronic Qualifiers: (11) ESRD (end stage renal disease) Current Visit: No Status: Chronic (12) History of CVA (cerebrovascular accident) Current Visit: No Status: Chronic (13) Hyperlipidemia Onset Date: 03/03/17 Current Visit: No Status: Chronic Qualifiers: (14) Hypertension Onset Date: 03/03/17 Current Visit: No Status: Chronic Brief History of Present Illness: Patient is a 46-year-old female with a past medical history significant for ESRD, CVA, depression, DM 2, GERD, hyperlipidemia, blindness, hypertension who presents with complaint of altered mental status and shortness of breath. Patient is a resident of a half-way--[facility]. Patient currently confused and not responding to commands. Patient sister reported that when she visited patient, she noticed that patient was using O2 therapy via cannula. She asked half-way staff why she was on oxygen and she was told that patient has been having trouble breathing. Family reported that patient put herself on hospice because she does not want to do dialysis anymore. She also noted that patient was not responding to commands and was confused. Prior to this episode, family reported that patient wanted to revoke hospice and start having dialysis. No other signs or symptoms reported. Symptoms are aggravated or relieved by nothing. retirement staff called EMS who brought patient to the hospital for medical evaluation. Hospital Course: Patient is clinically doing well. Patient will be hemodialyzed today. At this time, patient is stable for discharge. Family will contemplate whether they want to proceed with hospice after talking with the patient. Vital Signs/Physical Exam: Temp Pulse Resp BP Pulse Ox 98.0 F 67 18 148/65 H 99 11/07/21 10:16 11/07/21 10:16 11/07/21 10:16 11/07/21 10:16 11/07/21 10:16 General: Alert, In no apparent distress, Oriented x3 Laboratory Data at Discharge: WBC 7.90 K/uL (4.3-10.9) D 11/06/21 02:47 Hgb 10.7 g/dL (12.0-15.0) L 11/06/21 02:47 Hct 31.6 % (36.0-45.0) L 11/06/21 02:47 Plt Count 206 K/uL (152-406) 11/06/21 02:47 PT 11.6 SECONDS (9.5-12.5) 11/05/21 18:43 INR 1.05 11/05/21 18:43 Sodium 134 mmol/L (136-145) L 11/07/21 05:48 Potassium 4.6 mmol/L (3.5-5.1) 11/07/21 05:48 BUN 67 mg/dL (7-18) H 11/07/21 05:48 Creatinine 12.00 mg/dL (0.55-1.3) H* 11/07/21 05:48 Glucose 270 mg/dL (74-106) H 11/07/21 05:48 Phosphorus 9.0 mg/dL (2.5-4.9) H* 11/07/21 05:48 Magnesium 2.3 mg/dL (1.8-2.4) 11/06/21 02:47 Total Bilirubin 1.0 mg/dL (0.2-1.0) 11/06/21 02:47 AST 16 U/L (15-37) 11/06/21 02:47 ALT 69 U/L (12-78) 11/06/21 02:47 Alkaline Phosphatase 275 U/L (45-117) H 11/06/21 02:47 Triglycerides 127 mg/dL (<150) 11/05/21 18:43 Triglycerides Cancelled 11/05/21 18:43 Cholesterol 148 mg/dL (<200) 11/05/21 18:43 Cholesterol Cancelled 11/05/21 18:43 HDL Cholesterol 33 mg/dL (40-60) L 11/05/21 18:43 HDL Cholesterol Cancelled 11/05/21 18:43 Cholesterol/HDL Ratio 4.48 11/05/21 18:43 Cholesterol/HDL Ratio Cancelled 11/05/21 18:43 Home Medications: Aspirin 81 mg PO DAILY 12/23/19 Clopidogrel Bisulfate [Plavix*] 75 mg PO DAILY tablet 05/09/21 Codeine/APAP [Tylenol #3*] 1 tab PO Q8HP PRN 05/09/21 Docusate Sodium [Stool Softener] 200 mg PO DAILY 05/09/21 Duloxetine HCl [Cymbalta] 60 mg PO BID 05/09/21 Folic Acid 1 mg PO DAILY 05/09/21 Glucagon,Human Recombinant [Glucagon Emergency Kit] 1 mg IM PRN PRN 05/09/21 Hydroxyzine Hcl [Atarax] 10 mg PO TID PRN 05/09/21 Insulin Aspart See Protocol SQ ACHS 05/09/21 Insulin Detemir [Levemir] 10 units SQ DAILY 05/09/21 Levothyroxine [Synthroid*] 50 mcg PO [id number] 05/09/21 Melatonin 10 mg PO BEDTIME 05/09/21 Meloxicam [Mobic*] 7.5 mg PO 1800 05/09/21 Polyethyl Gly 3350 [Glycolax*] 17 gm PO TID 05/09/21 Sertraline [Zoloft*] 100 mg PO DAILY tab 05/09/21 Sevelamer Carbonate 2 packet PO TIDWM 05/09/21 cloNIDine HCL [Clonidine HCl] 0.1 mg PO BEDTIME 05/09/21 Ascorbic Acid [Vitamin C*] 500 mg PO DAILY 07/25/21 Atorvastatin Calcium [Lipitor*] 20 mg PO BEDTIME 07/25/21 Folic Acid/Vit B Complex and C [Libby-Guillermo Tablet] 0.8 mg PO DAILY 07/25/21 Gabapentin [Neurontin*] 400 mg PO M,W,F 07/25/21 Lactulose 20 gm PO DAILY PRN 07/25/21 Mirtazapine [Remeron] 30 mg PO BEDTIME 07/25/21 Patiromer Calcium Sorbitex [Veltassa] 8.4 gm PO DAILY 07/25/21 Zinc Sulfate [Zinc Sulfate*] 220 mg PO DAILY 07/25/21 Midodrine HCl [Proamatine*] 5 mg PO EVERY HD PRN #30 tab 11/07/21 New Medications: Midodrine HCl [Proamatine*] 5 mg PO EVERY HD PRN #30 tab PRN Reason: LOW BP Physician Discharge Instructions: -DC IV and DC back to half-way -Follow-up with PCP in 1 to 2 weeks -Follow-up with nephrology for hemodialysis -Please call Dr. Chan at [phone] if any questions regarding hospital stay -Please call nursing station at [phone] if any nursing or medication questions -Return to the emergency room if symptoms worsen Diet: Renal Activity: Fall precautions Followup: Unknown,U [Primary Care Provider] - Time spent managing pt's care (in minutes): 35
[2021-11-07] MEDS ORDERED: SEVELAMER CARBONATE 800 MG TABLET PO SCH (12:00)
[2021-11-07 13:00] VITALS: BP 172/74; TEMP 98.1
[2021-11-07] MEDS ORDERED: HYDROCORTISONE SUC 100 MG INJ IV ONE (13:30)
[2021-11-07] MEDS ORDERED: DIPHENHYDRAMINE 50 MG/ML VIAL IV ONE (13:31)
[2021-11-07 14:22] VITALS: O2SAT 100
--- NOTE | 2021-11-07 14:47 | PN ---
Date of Progress Note: 11/07/2021 Subjective: The patient was admitted with hypertension, hyperkalemia and severe acidosis secondary t o missing dialysis. The patient was uremic. The patient was done urgent dialysis on admission, feel ing better. Today, the patient more awake. No nausea. No vomiting. Physical Examination: Vital Signs: Blood pressure 148/65, pulse of 67, afebrile. Chest: Faint rales bilateral. Heart: S1, S2. Systolic murmur. Abdomen: Soft, nontender. Extremity: Right below-knee amputation. Neuro: Legally blind. No focality. Laboratory Data: WBC 7.9, H and H 10.7/31.6. Sodium 134, potassium 4.6, bicarb 17, BUN 67, creatini ne 12, calcium of 9.2, phosphorus of 9, albumin 2.8. Corrected calcium of 10. Current Medications: The patient on include; 1.Aspirin. 2.Azithromycin. 3.Ceftriaxone. 4.Plavix. 5.Atorvastatin. 6.Zinc sulfate. 7.Solu-Medrol. 8.Levothyroxine. Assessment And Plan: 1.End-stage renal disease with uremia, hyperkalemia, status post dialysis. We will resume the patie nt on her regular dialysis. We will do dialysis today, then tomorrow to back to Thursday, Thursday, a thursday. 2.Hypertension. We will challenge the patient. We will follow up blood pressure after dialysis. 3.Hyperkalemia, status post dialysis, recovered, resolved. 4.Acidosis, high anion gap metabolic acidosis secondary to renal failure. Will be corrected on dial ysis. We will up the bicarb. 5.Anemia of chronic kidney disease. Continue LINWOOD. 6.Secondary hyperparathyroidism. We will start the patient on Renvela. CASSIE/KERI Voice ID: [id number] Report ID: [id number]
[2021-11-07] MEDS ORDERED: CLONIDINE HCL 0.3 MG TAB PO ONE (17:03)
[2021-11-10 18:48] LABS: HBsAG Nonreactive (Nonreactive)
== END 2021-11-07 17:11 | DRG 682 ==
LOC: ER 14:33 → ERHOLD 17:25 → 3RD-ICU 11-06 10:10 → 2ND 11-06 21:22
PROVIDERS: ADMIT Hospitalist; ATTEND Hospitalist
PROC: 5A1D70Z Performance of Urinary Filtration, Intermittent, Less than 6 Hours Per Day (ICD-10-PCS; principal; 2021-11-06)
PROC: 5A1D70Z Performance of Urinary Filtration, Intermittent, Less than 6 Hours Per Day (ICD-10-PCS; 2021-11-07)
DX: I12.0 Hypertensive chronic kidney disease with stage 5 chronic kidney disease or end stage renal disease (principal); N18.6 End stage renal disease; G93.41 Metabolic encephalopathy; J96.01 Acute respiratory failure with hypoxia; J96.02 Acute respiratory failure with hypercapnia; E87.2 Acidosis; N25.81 Secondary hyperparathyroidism of renal origin; E11.22 Type 2 diabetes mellitus with diabetic chronic kidney disease; E11.40 Type 2 diabetes mellitus with diabetic neuropathy, unspecified; E11.319 Type 2 diabetes mellitus with unspecified diabetic retinopathy without macular edema; E11.21 Type 2 diabetes mellitus with diabetic nephropathy; H54.8 Legal blindness, as defined in USA; I73.9 Peripheral vascular disease, unspecified; E03.9 Hypothyroidism, unspecified; E87.5 Hyperkalemia; K21.9 Gastro-esophageal reflux disease without esophagitis; E78.5 Hyperlipidemia, unspecified; J44.9 Chronic obstructive pulmonary disease, unspecified; D63.1 Anemia in chronic kidney disease; R01.1 Cardiac murmur, unspecified; Z89.511 Acquired absence of right leg below knee; Z99.2 Dependence on renal dialysis; Z86.73 Personal history of transient ischemic attack (TIA), and cerebral infarction without residual deficits; Z20.822 Contact with and (suspected) exposure to COVID-19
CPT/HCPCS: 36415; 71045; 80048; 80053; 80061; 80069; 82140; 82805; 82947; 83735; 83880; 84100; 84443; 85025; 85610; 86317; 87040; 87340; 90935; 93005; 99285; J0456; J1200; J1644; J1720; J2310; J2543; J2920; J2930; J3370; J7050; U0003

== ENCOUNTER 2021-11-18 08:11 | Emergency (ER) | payer OTHER ==
--- OUTSIDE RECORDS SUMMARY | 2021-11-18 08:16 | XMS REPORT | Continuity of Care Document ---
:1975 Author Organization [facility] t Address [address] [place] [address] Care Team Providers Name Role Phone Faiza [...] Date Expiration Date S lenard UNITED MEDICARE [id number] 2016 O 00:00:00 [facility] [id number] 2013 PLAN 00:00:00 [facility] [id number] NEREIDA PADRON [id number] Problems Condition Condition Condition Status Onset Resolution Last Treating Co mments Source Name Details Category Date Date Treatment Clinician Date Proliferat Proliferat Disease Active Overview : Univers evonne evonne 3-30 Both ity of diabetic diabetic 00:00: [id number] Gee as retinopath retinopath 00 Diagnosis Medical y y Term Branch Leadership Program Associate Utility 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 3-22 ICD10 ity of mellitus mellitus 00:00: Diagnosis Gee as without without 00 Term Medical complicati complicati Leadership Program Associate Branch ons ons Utility Allergies, Adverse Reactions, Alerts Allergy Allergy Status Severity Reaction(s) Onset Inactive Treating Comm ents Source Name Type Date Date Clinician Lisinopr Propensi Active Unknown - Uni vers [place] ty to See comments 01-01 it y of chloroth adverse 00:00: [place] iazide reaction 00 Medical s Branch LISINOPR DRUG Active Unknown-Cmnt Un ruby IL-HYDRO 18 ity of CHLOROTH 00:00: [place] IAZIDE 00 Medical Branch No Known DA Active [facility]ie 08-22 [facility] 00:00: [address] No Known DA Active U [facility] Allergie 08-22 [facility] 00:00: [address] NO KNOWN Allergy Active [facility] ALLERGIE S NO KNOWN Drug Active Univers ALLERGIE Class ity of S [facility] Social History Social Habit Start Date Stop Date Quantity Comments Source Exposure to Not sure [facility] SARS-CoV-2 (event) Medica l Branch Tobacco use and 2021-01-01 2021-01-01 Never used [facility] exposure 00:00:00 00:00:00 [facility] Branch Sex Ass[birth year] At [birth year] [facility] 00:00:00 00:00:00 Medical [place] Smoking Status Start Date Stop Date Source Never smoker General acute hospital Medications Ordered Filled Start Stop Current Ordering Indication Dosage Frequency Signature Comments Components Source Medication Medication Date Date Medication? Clinician (SIG) Name Name [facility] drop as Un ruby OPHTHALMIC 3-23 needed ity of 02:09: [address] PRED FORTE Yes 1 drop as Un ruby OPHTHALMIC 3-23 needed ity of 02:09: [address] [facility] 1 drop as Un ruby OPHTHALMIC 3-23 needed ity of 02:09: [address] ALLERGEN Yes 1 drop as Univ ers OTIC 3-08 needed ity of 00:19: [address] ALLERGEN Yes 1 drop as Univ ers OTIC 3-08 needed ity of 00:19: [place] 37 Medical Branch ALLERGEN 2007-0 Yes 1 drop as Univ ers OTIC 3-08 needed ity of 00:19: [address] Branch ATROPINE 2006- Yes Use As DIR Uni vers (BULK) MISC 1-24 ity of 00:41: [place] [id number] Medical Branch ATROPINE Yes Use As DIR Uni vers (BULK) MISC 1-24 ity of 00:41: [address] Branch ATROPINE Yes Use As DIR Uni vers (BULK) MISC 1-24 ity of 00:41: [address] Branch SCOPOLAMINE 2005-08 Yes 0.05 mL Uni vers HBR 0.25 % 1-07 Left Eye ity o f OPHTHALMIC 00:00: BID [place] DROP 00 Medical Branch ACETAMINOPH 2005-08 Yes 2 Tab Oral Univers EN-CODEINE 1-07 Q6HPRN ity of 300-30 MG 00:00: [place] ORAL TAB 00 Medical Branch PREDNISOLON 2006- Yes 0.05 mL Uni vers E ACETATE [...] [place] ORAL TAB 00 Medical Branch PREDNISOLON 2006- Yes 0.05 mL Uni vers E ACETATE [...] 0.05 mL Uni vers E ACETATE 1 07 Left Eye ity of % 00:00: QID [place] OPHTHALMIC 00 Medical DRPS Branch TOBRAMYCIN 2005-08 Yes 0.05 mL Univ ers SULFATE 0.3 07 Left Eye ity of % 00:00: QID [place] OPHTHALMIC 00 Medical DROP Branch Vital Signs Vital Name Observation Time Observation Value Comments Source HEIGHT 2020-05-17 162.6 cm 00:00:00 WEIGHT 2020-05-17 61.236 kg 00:00:00 Systolic blood 2021-01-01 162 mm[Hg] Simultaneous [facility] pressure 15:08:00 filing. User may [place] Medic al not have seen Branch previous data. Diastolic blood 2021-01-01 76 mm[Hg] Simultaneous [place] o f pressure 15:08:00 filing. User may [place] Medic al not have seen Branch previous data. Heart rate 2021-01-01 97 /min Simultaneous [facility] 15:08:00 filing. User may [place] Medic al not have seen Branch previous data. Body temperature 2021-01-[address] [facility] 15:08:00 filing. User may [place] Medic al not have seen Branch previous data. Respiratory rate 2021-01-01 18 /min University 15:08:00 [facility] Body weight 2021-01-01 63.957 kg University 15:08:00 [facility] Oxygen saturation 2021-01-01 99 /min Simultaneous [facility] in Arterial blood 15:08:00 filing. User may [place] Medical by Pulse oximetry not have seen Branch previous data. HEIGHT 2020-05-17 162.6 cm 00:00:00 WEIGHT 2020-05-17 61.236 kg 00:00:00 Procedures Procedure Date / Time Performed Performing Clinician Isidro carter [id number] 2019-05-18 00:00:00 ENCPL [id number] 2019-05-18 00:00:00 ENCPL [id number] 2019-05-18 00:00:00 ENCPL [id number] 2019-05-18 00:00:00 ENC[facility] [id number] 2019-05-18 00:00:00 ENCPL Encounters Start End Encounter Admission Attending Care Care Encounter Source Date/Time Date/Time Type Type Clinicians Facility Department ID 2021-09-11 Outpatient Russell, STLMLC STLMLC [id number] 12:03:02 Ana [address] [facility] 2020-06-15 Inpatient Kristina ACOSTA [facility] [id number] Kelleyjaylenjay 08:00:00 [facility] 2020-05-18 Inpatient ER CAROL MONSIVAISL Internal [id number] [facility] 04:28:00 SWATHISHTA Med 2019-08-23 Inpatient MARIAM JohnsonU SURG [id number] [facility] 15:45:00 Imran [id number] [facility] 2019-04-12 Inpatient MH MED [id number] [facility] W 13:57:46 2021-07-02 2021-07-02 [facility] [id number] Univers 10:30:00 10:30:00 CATALINA [id number] [facility] 2021-01-01 2021-01-01 Office [facility] [id number] Univers 09:55:30 11:22:11 Visit Elissa Campa [id number] [facility] [place] [facility] [id number] [facility] Professio [id number] [address] 2021-01-01 2021-01-01 Outpatient R [facility] [id number] Univers 09:45:00 09:45:00 ELISSA sol o f [facility] 2020-10-30 2020[facility]10-30 [facility] [id number] [facility] 2020-06-26 2020-06-26 Outpatient STLMLC STLMLC [id number] [facility] 2019-09-20 2019-09-20 Outpatient WALESKA Ibrahim SURG [id number] [facility] 15:45:00 15:45:00 Imrarminda [facility] 2019-05-16 2019-05-27 Inpatient 3 [facility] ENCPL CVA [id number] ENCPL 21:43:00 13:03:00 hez, 0930 Anavella Results Test Description Test Time Test Comments [...] only after consultation wi the clinical microbiology [facility].Refer to previous cul ture ofCandida parapsilosis GRAM STAIN RESULT No White blood cells seen (BEAKER) (test code = 1123) GRAM STAIN RESULT No organisms seen (BEAKER) (test code = 631741) SURGICALLY OBTAINED CULTURE + GRAM [id number] 11:24:00 Test Item Value Reference Range Interpretation Comments CULTURE (BEAKER) A <1+ Trinidad (test code = parapsilosis 1095) GRAM STAIN No White blood RESULT (BEAKER) cells seen (test code = 1123) GRAM STAIN No organisms seen RESULT (BEAKER) (test code = 55289) ANAEROBIC [id number] 15:40:00 Test Item Value Reference Range Interpretation Comments CULTURE (BEAKER) (test No anaerobes isolated code = 1095) ANAEROBIC [id number] 15:40:00 Test Item Value Reference Range Interpretation Comments CULTURE (BEAKER) (test No anaerobes isolated code = 1095) POCT-GLUCOSE [id number] 08:09:00 Test Item Value Reference Range Interpretation Comments POC-GLUCOSE METER 151 mg/dL 70-110 H : TESTED A T [facility] 1317 (BEAKER) (test code [facility] [address], = 1538) [facility] 77 [address]: Crop And Soil Technician/Techni tammy ID = [id number] for Emilee Kovacs BASIC METABOLIC [id number] 06:34:00 Test Item Value Reference Range Interpretation [...] S NOT APPLICABLE FOR DIALYSIS PATIEN TS. Crop And Soil Technician ID - [id number] 06:23:00 Test Item Value Reference Range Interpretation Comments PHOSPHORUS (BEAKER) (test code = 4.0 mg/dL 2.5-4.5 604) Crop And Soil Technician ID - ADMINCBC W/PLT COUNT & AUTO [id number] 05:45:00 Test Item Value Reference Range Interpretation [...] PERCENT (BEAKER) (test code = 2801) POCT-GLUCOSE [id number] 20:47:00 Test Item Value Reference Range Interpretation Comments POC-GLUCOSE METER 205 mg/dL 70-110 H : TESTED A T [facility] 1317 (BEAKER) (test code [address], = 1538) [place] [address]: Crop And Soil Technician/Techni tammy ID = [id number] for Pat Reyes BLOOD [id number] 13:00:00 Test Item Value Reference Range Interpretation Comments CULTURE (BEAKER) (test No growth in 5 days code = 1095) POCT-GLUCOSE [id number] 11:38:00 Test Item Value Reference Range Interpretation Comments POC-GLUCOSE METER 74 mg/dL 70-110 : TESTED A T [facility] 1317 (BEAKER) (test code = [address], 1538) [place] [address]: Crop And Soil Technician/Techni tammy ID = [id number] for Soheila Cheatham POCT-GLUCOSE [id number] 07:31:00 Test Item Value Reference Range Interpretation Comments POC-GLUCOSE METER 104 mg/dL 70-110 : TESTED A T [facility] 1317 (BEAKER) (test code [address], = 1538) [place] [address]: Crop And Soil Technician/Techni tammy ID = [id number] for Soheila Cheatham BASIC METABOLIC [id number] 05:25:00 Test Item Value Reference Range Interpretation [...] S NOT APPLICABLE FOR DIALYSIS PATIEN TS. Crop And Soil Technician ID - [id number] 05:21:00 Test Item Value Reference Range Interpretation Comments PHOSPHORUS (BEAKER) (test code = 5.1 mg/dL 2.5-4.5 H 604) Crop And Soil Technician ID - ADMINVANCOMYCIN LEVEL, [id number] 05:20:00 Test Item Value Reference Range Interpretation Comments VANCOMYCIN RANDOM (BEAKER) (test 19.7 ug/mL code = 523) Reference Range: No NormalsOperator ID - ADMINCBC W/PLT COUNT & AUTO [id number] 05:10:00 Test Item Value Reference Range Interpretation [...] PERCENT (BEAKER) (test code = 2801) POCT-GLUCOSE [id number] 20:52:00 Test Item Value Reference Range Interpretation Comments POC-GLUCOSE METER 127 mg/dL 70-110 H : TESTED A T [facility] 1317 (BEAKER) (test code [facility] [address], = 1538) [facility] 77 478: Crop And Soil Technician/Techni tammy ID = [id number] for Aanu siem, felicity TISSUE [id number] 11:55:00Surgical Pathology Report Case: [id number] Authorizing Provider: Jada Acosta DPM Collected: 05/21/2020 12:36 PM Ordering Location: [facility] [place] [facility] 5th Floor Received: 05/21/2020 12:49 PM Pathologist: Ann Meeks MD Specimen: Benito ne, right 1st metatarsal head bone biopsy BONE, RIGHT FIRSTMETATARSAL HEAD, BIOPSY: - BONE WITH FOCAL FIBROSIS AND CHRONIC INFLAMMATION, CONSISTENT WITH CHRONIC OSTEOMYELITIS Signing Pathologist Direct Phone Line: [phone] signed by Ann Meeks MD on 05/22/2020 at 11:55 [id number]; [id number] foot abscessRight 1st metatarsalhead bone biopsySpecimen is received in formalin designated "bone" and consists of two marin-red bone fragments measuring 1 x 0.3 x 0.3 cm, submitted after decalcification in cassette A1. SQ/plPerformed. [facility], Department of Pathology, [address] [place] [address], [facility], Department of Pathology, [address] [place] [address], [facility], Department of Pathology, [address] [place] [address], RGJD-GLUCOSE [id number] 11:41:00 Test Item Value Reference Range Interpretation Comments POC-GLUCOSE METER 84 mg/dL 70-110 : [facility] (BEAKER) (test code = [address], 15[address]) [place] [address]: Crop And Soil Technician/Techni tammy ID = [id number] for Mary Adames POCT-GLUCOSE [id number] 07:38:00 Test Item Value Reference Range Interpretation Comments POC-GLUCOSE METER 93 mg/dL 70-110 : TESTED A T [facility] 1317 (BEAKER) (test code = [address], 1538) [place] [address]: Crop And Soil Technician/Techni tammy ID = [id number] for Mary Adames BASIC METABOLIC [id number] 06:04:00 Test Item Value Reference Range Interpretation [...] S NOT APPLICABLE FOR DIALYSIS PATIEN TS. Crop And Soil Technician ID - [id number] 05:51:00 Test Item Value Reference Range Interpretation Comments PHOSPHORUS (BEAKER) (test code = 4.4 mg/dL 2.5-4.5 604) Crop And Soil Technician ID - ADMINCBC W/PLT COUNT & AUTO [id number] 05:30:00 Test Item Value Reference Range Interpretation [...] PERCENT (BEAKER) (test code = 2801) POCT-GLUCOSE [id number] 21:49:00 Test Item Value Reference Range Interpretation Comments POC-GLUCOSE METER 95 mg/dL 70-110 : TESTED A T [facility] 1317 (BEAKER) (test code = [address], 1538) [place] [address]: Crop And Soil Technician/Techni tammy ID = [id number] for K[address] street Jacquie POCT-GLUCOSE [id number] 12:40:00 Test Item Value Reference Range Interpretation Comments POC-GLUCOSE METER 80 mg/dL 70-110 : TESTED A T [facility] 1317 (BEAKER) (test code = [address], 1538) [place] [address]: Crop And Soil Technician/Techni tammy ID = [id number] for Berenice Hamilton HCG, SERUM, [id number] 10:42:00 Test Item Value Reference Range Interpretation Comments TEST SERUM (BEAKER) (test Negative code = 584) POCT-GLUCOSE [id number] 07:56:00 Test Item Value Reference Range Interpretation Comments POC-GLUCOSE METER 105 mg/dL 70-110 : TESTED A T [facility] 1317 (BEAKER) (test code [address] [facility] [address], = 1538) [facility] [place] [address]: Crop And Soil Technician/Techni tammy ID = [id number] for Mary Adames BASIC METABOLIC [id number] 04:24:00 Test Item Value Reference Range Interpretation [...] S NOT APPLICABLE FOR DIALYSIS PATIEN TS. Crop And Soil Technician ID - ADMINIRON, TIBC, % SAT. (WITHOUT FERRITIN)2020-05-21 04:24:00 Test Item Value Reference Range Interpretation Comments IRON (BEAKER) (test code = 547) 68.0 ug/dL 45.0-170.0 TOTAL IRON BINDING CAPACITY 170 ug/dL 250-550 L (BEAKER) (test code = 769) IRON % SATURATION (2) (BEAKER) 40 % 20-55 (test code = 2590) Crop And Soil Technician ID - [id number] 04:20:00 Test Item Value Reference Range Interpretation Comments MAGNESIUM (BEAKER) (test code = 2.0 mg/dL 1.5-3.0 627) Crop And Soil Technician ID - ADMINPROTHROMBIN [id number] 04:18:00 Test Item Value Reference Range Interpretation Comments PROTIME (BEAKER) (test code = 759) 10.9 sec 9.3-12.0 INR (BEAKER) (test code = 370) 1.00 <=5.90 RECOMMENDED COUMADIN/WARFARIN INR THERAPY RANGESSTANDARD DOSE: 2.0 - 3.0 Includes: PROPHYLAXIS forvenous thrombosis, systemic embolization; TREATMENT for venous thrombosis and/or pulmonary embolus.HIGH RISK: Target INR is 2.5-3.5 for patients with mechanical heart valves.Final Information (Auto Output)Final Information (Auto Output)[id number] 04:18:00 Test Item Value Reference Range Interpretation Comments PARTIAL THROMBOPLASTIN TIME (BEAKER) 27.9 sec 23.0-35.0 (test code = 760) Final Information (Auto Output)[id number] 04:17:00 Test Item Value Reference Range Interpretation Comments PHOSPHORUS (BEAKER) (test code = 6.9 mg/dL 2.5-4.5 H 604) Crop And Soil Technician ID - ADMINVANCOMYCIN LEVEL, [id number] 04:16:00 Test Item Value Reference Range Interpretation Comments VANCOMYCIN RANDOM (BEAKER) (test 13.8 ug/mL code = 523) Reference Range: No NormalsOperator ID - ADMINCBC W/PLT COUNT & AUTO [id number] 04:03:00 Test Item Value Reference Range Interpretation [...] PERCENT (BEAKER) (test code = 2801) POCT-GLUCOSE [id number] 21:19:00 Test Item Value Reference Range Interpretation Comments POC-GLUCOSE METER 118 mg/dL 70-110 H : TESTED A T [facility] 1317 (BEAKER) (test code [facility] [address], = 1538) [facility] 77 [address]: Crop And Soil Technician/Techni tammy ID = [id number] for Jacquie Vázquez POCT-GLUCOSE [id number] 16:03:00 Test Item Value Reference Range Interpretation Comments POC-GLUCOSE METER 273 mg/dL 70-110 H : TESTED A T [facility] 1317 (BEAKER) (test code [address], = 1538) [place] [address]: Crop And Soil Technician/Techni tammy ID = [id number] for Mary Adames POCT-GLUCOSE [id number] 11:32:00 Test Item Value Reference Range Interpretation Comments POC-GLUCOSE METER 224 mg/dL 70-110 H : TESTED A T [facility] 1317 (BEAKER) (test code [address], = 1538) [place] [address]: Crop And Soil Technician/Techni tammy ID = [id number] for Mary Adames POCT-GLUCOSE [id number] 07:33:00 Test Item Value Reference Range Interpretation Comments POC-GLUCOSE METER 260 mg/dL 70-110 H : TESTED A T [facility] 1317 (BEAKER) (test code [address], = 1538) [place] [address]: Crop And Soil Technician/Techni tammy ID = [id number] for Mary Adames TSH/FREE T4 IF [id number] 07:06:00 Test Item Value Reference Range Interpretation Comments THYROID STIMULATING HORMONE 3.130 uIU/mL 0.350-5.500 (BEAKER) (test code = 772) Crop And Soil Technician ID - ADMINBASIC METABOLIC [id number] 06:52:00 Test Item Value Reference Range Interpretation [...] S NOT APPLICABLE FOR DIALYSIS PATIEN TS. Crop And Soil Technician ID - [id number] 06:49:00 Test Item Value Reference Range Interpretation Comments MAGNESIUM (BEAKER) 1.9 mg/dL 1.5-3.0 Specimen slightly (test code = 627) hemolyzed Crop And Soil Technician ID - [id number] 06:46:00 Test Item Value Reference Range Interpretation Comments PHOSPHORUS (BEAKER) 6.2 mg/dL 2.5-4.5 H Specimen slightly (test code = 604) hemolyzed Crop And Soil Technician ID - ADMINCBC W/PLT COUNT & AUTO [id number] 05:25:00 Test Item Value Reference Range Interpretation [...] PERCENT (BEAKER) (test code = 2801) POCT-GLUCOSE [id number] 22:13:00 Test Item Value Reference Range Interpretation Comments POC-GLUCOSE METER 318 mg/dL 70-110 H : TESTED A T [facility] 1317 ([facility]) (test code [facility], = 1538) [place] [address]: Crop And Soil Technician/Techni tammy ID = [id number] for Elissa Diaz POCT-GLUCOSE [id number] 16:36:00 Test Item Value Reference Range Interpretation Comments POC-GLUCOSE METER 238 mg/dL 70-110 H : Notified RN/MD: TESTED ([facility]) (test code AT [facility] [address] [address] = 1538) [place] [address]: Crop And Soil Technician/Techni tammy ID = [id number] for Lowell coronado Cuate HEPATITIS B SURFACE [id number] 12:07:00 Test Item Value Reference Range Interpretation Comments HEPATITIS B SURFACE ANTIBODY 9.4 mIU/mL <8.0 H ([facility]) (test code = 647) Crop And Soil Technician ID - RORYGPOCT-GLUCOSE [id number] 11:31:00 Test Item Value Reference Range Interpretation Comments POC-GLUCOSE METER 170 mg/dL 70-110 H : Notified RN/MD: TESTED ([facility]) (test code AT [facility] [address] = 1538) [place] [address]: Crop And Soil Technician/Techni tammy ID = [id number] for Cuate Castañeda VANCOMYCIN LEVEL, [id number] 09:31:00 Test Item Value Reference Range Interpretation Comments VANCOMYCIN RANDOM (BEAKER) (test 14.3 ug/mL code = 523) Reference Range: No NormalsOperator ID - ADMINBASIC METABOLIC [id number] 08:59:00 Test Item Value Reference Range Interpretation [...] S NOT APPLICABLE FOR DIALYSIS PATIEN TS. Crop And Soil Technician ID - [id number] 08:56:00 Test Item Value Reference Range Interpretation Comments MAGNESIUM (BEAKER) (test code = 1.9 mg/dL 1.5-3.0 627) Crop And Soil Technician ID - [id number] 08:53:00 Test Item Value Reference Range Interpretation Comments PHOSPHORUS (BEAKER) (test code = 4.7 mg/dL 2.5-4.5 H 604) Crop And Soil Technician ID - ADMINCBC W/PLT COUNT & AUTO [id number] 08:51:00 Test Item Value Reference Range Interpretation [...] PERCENT (BEAKER) (test code = 2801) POCT-GLUCOSE [id number] 07:53:00 Test Item Value Reference Range Interpretation Comments POC-GLUCOSE METER 153 mg/dL 70-110 H : Notified RN/MD: TESTED (BEAKER) (test code AT [facility] 1317 [facility] = 1538) [place] [address]: Crop And Soil Technician/Techni tammy ID = [id number] for Cuate Castañeda SARS-COV2/RT-PCR ([facility])2020-05-19 00:02:00 Test Item Value Reference Range Interpretation Comments SARS-COV2/RT-PCR (test Negative Not Detected, Negative, code = 4502608) See external report for linked test SARS-COV-2 PERFORMING LAB [facility] GEOFFREY (test code = 9206743) Negative result for this test determines that [...] 564(g) of the Act.Fact Sheet for Healthcare Providers:https://www.[employer]/sites/default/files/product/documents/Fact_Shee e_NE_Pydxfngqb_Ykdw_OTQH-RiH-6.pdfFact Sheet for Healthcare Patients:https://www.[employer]/sites/default/files/product/ documents/Rnft_Mqeoc_Vskmehtd_Gunk_WMHE-SjW-3.pdfPerforming Laboratory:[facility], [place] [address]VSNH-RPEHEIT METER 2020-05-18 21:01:00 Test Item Value Reference Range Interpretation Comments POC-GLUCOSE METER 190 mg/dL 70-110 H : TESTED A T [facility] 1317 (BEAKER) (test code [address], = 1538) [place] [address]: Crop And Soil Technician/Techni tammy ID = [id number] for Nehal Patiño HEPATITIS B SURFACE [id number] 20:29:00 Test Item Value Reference Range Interpretation Comments HEPATITIS B SURFACE ANTIGEN (2) Nonreactive Nonreactive (BEAKER) (test code = 2585) Crop And Soil Technician ID - ADMINPOCT-GLUCOSE [id number] 16:43:00 Test Item Value Reference Range Interpretation Comments POC-GLUCOSE METER 211 mg/dL 70-110 H : TESTED A T [facility] 1317 (BEAKER) (test code [address], = 1538) [place] [address]: Crop And Soil Technician/Techni tammy ID = [id number] for Daryn marcano Mary MR, EXTREMITY, LOWER, WITHOUT CONTRAST, [id number] 15:44:00Recent amputation for R great toe osteomyelitis/diabetic [...] Tyler Verified Date/Time: 05/18/2020 15:44:11 Reading Location: [facility] Radiology Reading Room POCT-GLUCOSE [id number] 12:55:00 Test Item Value Reference Range Interpretation Comments POC-GLUCOSE METER 169 mg/dL 70-110 H : TESTED A T [facility] 1317 (BEAKER) (test code [address], = 1538) [facility] [address]: Crop And Soil Technician/Techni tammy ID = [id number] for Daryn marcanoMary HEPATIC FUNCTION [id number] 09:20:00 Test Item Value Reference Range Interpretation [...] Specimen slightly (test code = 347) hemolyzed Crop And Soil Technician ID - [id number] 09:20:00 Test Item Value Reference Range Interpretation Comments MAGNESIUM (BEAKER) 3.8 mg/dL 1.5-3.0 H Specimen slightly (test code = 627) hemolyzed Crop And Soil Technician ID - ADMINHEMOGLOBIN [id number] 09:20:00 Test Item Value Reference Range Interpretation Comments HEMOGLOBIN A1C (BEAKER) (test code = 9.4 % 4.3-6.1 H 368) Crop And Soil Technician ID - ADMINBASIC METABOLIC [id number] 09:19:00 Test Item Value Reference Range Interpretation [...] S NOT APPLICABLE FOR DIALYSIS PATIEN TS. Crop And Soil Technician ID - ADMINC-REACTIVE [id number] 09:19:00 Test Item Value Reference Range Interpretation Comments C-REACTIVE PROTEIN (BEAKER) (test 1.17 mg/dL 0.00-0.50 H code = 676) Crop And Soil Technician ID - ADMINVANCOMYCIN LEVEL, [id number] 09:18:00 Test Item Value Reference Range Interpretation Comments VANCOMYCIN TROUGH (BEAKER) (test 15.1 ug/mL 10.0-20.0 code = 522) Crop And Soil Technician ID - ADMINCBC W/PLT COUNT & AUTO [id number] 09:09:00 Test Item Value Reference Range Interpretation [...] PERCENT (BEAKER) (test code = 2801) POCT-GLUCOSE [id number] 08:18:00 Test Item Value Reference Range Interpretation Comments POC-GLUCOSE METER 177 mg/dL 70-110 H : TESTED A T [facility] 1317 (BEAKER) (test code [address], = 1538) [facility] 77 478: Crop And Soil Technician/Techni tammy ID = [id number] for Mary Adames RAD, CHEST, 1 VIEW, NON [id number] 08:11:00Reason for exam:->shortness of breathShould this be performed at the bedside?->YesFINAL REPORT CLINICAL HISTORY: shortness of breath TECHNIQUE: 1 view of the c hest. COMPARISON: 07/18/2019 IMPRESSION: There are new, mildly prominent interstitial opacities bilaterally. There is no lobar consolidation or significant pleural fluid. There is no cardiomegaly. Surgical clips are seen in the medial left upper arm. Signed: Marychuy Bueno MDRedinort Verified Date/Time: 08:11:49 Reading Location: [facility] Radiology Reading Room Electronically signedby: MARYCHUY BUENO M.D. on 05/18/2020 08:11 AMHEPATITIS B SURF AB, [id number] 18:16:00 Test Item Value Reference Range Interpretation [...] ~~~~~~~~ ~~~~~~~~~~~~~~~ ~~~~~~~~ ~ AG HEPATITIS B [id number] 18:16:00 Test Item Value Reference Range Interpretation Comments AG HEPATITIS B SURFACE (test code = NEGATIVE NONREACTIVE HBSAG) HIV 12 AB [id number] 18:16:00 Test Item Value Reference Range Interpretation Comments HIV 1 2 COMBO AG/AB SCREEN AB/AG NON REACTIVE NONREACTIVE (test code = [id number]) HEPATITIS B SURF AB, [id number] 17:51:00 Test Item Value Reference Range Interpretation Comments HEPATITIS B SURF AB, QUANT (test code mIU/mL = HBSABQ) AG HEPATITIS B [id number] 17:51:00 Test Item Value Reference Range Interpretation Comments AG HEPATITIS B SURFACE (test code = NEGATIVE NONREACTIVE HBSAG) HIV 12 AB [id number] 17:51:00 Test Item Value Reference Range Interpretation Comments HIV 1 2 COMBO AG/AB SCREEN AB/AG NON REACTIVE NONREACTIVE (test code = [id number]) HEPATITIS B SURF AB, [id number] 17:39:00 Test Item Value Reference Range Interpretation Comments HEPATITIS B SURF AB, QUANT (test code mIU/mL = HBSABQ) AG HEPATITIS B [id number] 17:39:00 Test Item Value Reference Range Interpretation Comments AG HEPATITIS B SURFACE (test code = NEGATIVE NONREACTIVE HBSAG) HIV 12 AB [id number] 17:39:00 Test Item Value Reference Range Interpretation Comments HIV 1 2 COMBO AG/AB SCREEN (test code = NONREACTIVE [id number]) GLUCOSE BEDSIDE [id number] 12:00:00 Test Item Value Reference Range Interpretation Comments GLUCOSE BEDSIDE TESTING (test code 136 MG/DL 60-99 H = GLUBED) GLUCOSE BEDSIDE [id number] 21:08:00 Test Item Value Reference Range Interpretation Comments GLUCOSE BEDSIDE TESTING (test code = 84 MG/DL 60-99 N GLUBED) BASIC METABOLIC [id number] 16:40:00 Test Item Value Reference Range Interpretation [...] 9.0 MG/DL 8.4-10.2 N CA) HCG SERUM [id number] 16:40:00 Test Item Value Reference Range Interpretation Comments HCG SERUM QUAL (test code = HCGQL) NEGATIVE NEGATIVE A PROTHROMBIN [id number] 16:32:00 Test Item Value Reference Range Interpretation [...] sunshine embolism. 3.0 - 4.5 Comments to Production Illustrator: PREOPPTT [id number] 16:32:00 Test Item Value Reference Range Interpretation Comments PTT ACTIVATED (test code = APTT) 30.3 SECONDS 22.0-33.0 N Comments to Production Illustrator: PREOPBASIC METABOLIC [id number] 16:32:00 Test Item Value Reference Range Interpretation [...] code = CA) MG/DL 8.7-9.7 HCG SERUM [id number] 16:32:00 Test Item Value Reference Range Interpretation Comments HCG SERUM QUAL (test code = HCGQL) NEGATIVE NEGATIVE A BASIC METABOLIC [id number] 16:31:00 Test Item Value Reference Range Interpretation [...] code = CA) MG/DL 8.7-9.7 HCG SERUM [id number] 16:31:00 Test Item Value Reference Range Interpretation Comments HCG SERUM QUAL (test code = HCGQL) NEGATIVE CBC W/AUTO [id number] 16:25:00 Test Item Value Reference Range Interpretation [...] 0.00 K/mm3 0.0-0.1 N NRBC#) GLUCOSE BEDSIDE [id number] 18:41:00 Test Item Value Reference Range Interpretation Comments GLUCOSE BEDSIDE TESTING (test code = 83 MG/DL 60-99 N GLUBED) BASIC METABOLIC [id number] 15:04:00 Test Item Value Reference Range Interpretation [...] 9.1 MG/DL 8.4-10.2 N CA) BASIC METABOLIC [id number] 15:00:00 Test Item Value Reference Range Interpretation [...] code = CA) MG/DL 8.7-9.7 HCG SERUM [id number] 14:59:00 Test Item Value Reference Range Interpretation Comments HCG SERUM QUAL (test code = HCGQL) NEGATIVE NEGATIVE A PROTHROMBIN [id number] 14:56:00 Test Item Value Reference Range Interpretation [...] syste sunshine embolism. 3.0 - 4.5 PTT [id number] 14:56:00 Test Item Value Reference Range Interpretation Comments PTT ACTIVATED (test code = APTT) 27.9 SECONDS 22.0-33.0 N CBC W/AUTO [id number] 14:43:00 Test Item Value Reference Range Interpretation [...] N NRBC#) RAD, CHEST, 1 VIEW, NON [id number] 11:27:00Reason for exam:->r/o pneumoniaShould this be performed [...] Verified Date/Time: 07/18/2019 11:27:35 Reading Location: [facility] Reading Room POCT-GLUCOSE [id number] 08:34:00 Test Item Value Reference Range Interpretation Comments POC-GLUCOSE METER 126 mg/dL 70-110 H : TESTED A T [facility] 6720 (BEAKER) (test code = [place], 1538) [address]: Crop And Soil Technician/Techni tammy ID = [id number] for Raymond travis Baldomero BASIC METABOLIC [id number] 06:56:00 Test Item Value Reference Range Interpretation [...] S NOT APPLICABLE FOR DIALYSIS PATIEN TS. [id number] 06:45:00 Test Item Value Reference Range Interpretation Comments PHOSPHORUS (BEAKER) (test code = 4.6 mg/dL 2.3-4.7 604) [id number] 06:45:00 Test Item Value Reference Range Interpretation Comments MAGNESIUM (BEAKER) (test code = 2.0 mg/dL 1.6-2.6 627) CBC W/PLT COUNT & AUTO [id number] 05:35:00 Test Item Value Reference Range Interpretation [...] PERCENT (BEAKER) (test code = 2801) PROTHROMBIN [id number] 05:24:00 Test Item Value Reference Range Interpretation [...] is2.5-3.5 for patients wiht mechanical heart valves.POCT-GLUCOSE [id number] 21:08:00 Test Item Value Reference Range Interpretation Comments POC-GLUCOSE METER 191 mg/dL 70-110 H : TESTED A T [facility] 6720 (BERUSBASE) (test code = [facility], 1538) [address]: Crop And Soil Technician/Techni tammy ID = [id number] for Keith Quintero POCT-GLUCOSE [id number] 17:20:00 Test Item Value Reference Range Interpretation Comments POC-GLUCOSE METER 168 mg/dL 70-110 H : TESTED A T [facility] 6720 (BERUSBASE) (test code = [facility], 1538) [address]: Crop And Soil Technician/Techni tammy ID = [id number] for HU NT, MAVIS POCT-GLUCOSE [id number] 12:49:00 Test Item Value Reference Range Interpretation Comments POC-GLUCOSE METER 221 mg/dL 70-110 H : TESTED A T [facility] 6720 (BEAKER) (test code = [facility], 1538) [address]: Crop And Soil Technician/Techni tammy ID = [id number] for HU NT, MAVIS SCREEN, [id number] 11:54:00 Test Item Value Reference Range Interpretation Comments TEST URINE (BEAKER) (test Negative code = 583) POCT-GLUCOSE [id number] 09:11:00 Test Item Value Reference Range Interpretation Comments POC-GLUCOSE METER 112 mg/dL 70-110 H : TESTED A T [facility] 6720 (BEAKER) (test code = [facility], 1538) [address]: Crop And Soil Technician/Techni tammy ID = [id number] for MAVIS GARRIDO BASIC METABOLIC [id number] 06:50:00 Test Item Value Reference Range Interpretation [...] S NOT APPLICABLE FOR DIALYSIS PATIEN TS. [id number] 06:38:00 Test Item Value Reference Range Interpretation Comments PHOSPHORUS (BEAKER) (test code = 3.9 mg/dL 2.3-4.7 604) [id number] 06:38:00 Test Item Value Reference Range Interpretation Comments MAGNESIUM (BEAKER) (test code = 1.9 mg/dL 1.6-2.6 627) PROTHROMBIN [id number] 06:12:00 Test Item Value Reference Range Interpretation [...] mechanical heart valves.CBC W/PLT COUNT & AUTO [id number] 06:06:00 Test Item Value Reference Range Interpretation [...] 417) IMMATURE GRANULOCYTES-RELATIVE 0 % 0-1 PERCENT (BENANCI) (test code = 2801) [id number] 04:27:00 Test Item Value Reference Range Interpretation Comments RPR SCREEN (TAINA) (test code = Nonreactive Nonreactive 420) MR, MRA, BRAIN, WITHOUT [id number] 03:28:00Reason for exam:- >StrokeWhat is the patient's [...] 07/17/2019 03:28:33 MR, MRA, NECK, WITHOUT IV [id number] 03:28:00FINAL REPORT MR, BRAIN, WITHOUT CONTRAST, MR, [...] Verified Date/Time: 07/17/2019 03:28:33 MR, BRAIN, WITHOUT [id number] 03:28:00 Reason for exam:->StrokeWhat is the patient's [...] Ortiz MDReport Verified Date/Time: 07/17/2019 03:28:33 POCT-GLUCOSE [id number] 21:16:00 Test Item Value Reference Range Interpretation Comments POC-GLUCOSE METER 143 mg/dL 70-110 H : TESTED A T [facility] 6720 (BEAKER) (test code = [facility], 1538) [address]: Crop And Soil Technician/Techni tammy ID = [id number] for JANELL GEORGE POCT-GLUCOSE [id number] 17:33:00 Test Item Value Reference Range Interpretation Comments POC-GLUCOSE METER 108 mg/dL 70-110 : TESTED A T [facility] 6720 (BEAKER) (test code = [facility], 1538) [address]: Crop And Soil Technician/Techni tammy ID = [id number] for TAVON DUVALL POCT-GLUCOSE [id number] 17:25:00 Test Item Value Reference Range Interpretation Comments POC-GLUCOSE METER 155 mg/dL 70-110 H : TESTED A T [facility] 6720 (BEAKER) (test code = [facility], 1538) [address]: Crop And Soil Technician/Techni tammy ID = [id number] for SIMON CHO HEPATITIS B SURFACE [id number] 14:30:00 Test Item Value Reference Range Interpretation Comments HEPATITIS B SURFACE ANTIGEN (2) Nonreactive Nonreactive (BEAKER) (test code = 2585) POCT-GLUCOSE [id number] 12:17:00 Test Item Value Reference Range Interpretation Comments POC-GLUCOSE METER 146 mg/dL 70-110 H : TESTED A T [facility] 6720 (BEAKER) (test code = [facility], 1538) [address]: Crop And Soil Technician/Techni tammy ID = [id number] for MAVIS GARRIDO BASIC METABOLIC [id number] 09:26:00 Test Item Value Reference Range Interpretation [...] NOT APPLICABLE FOR DIALYSIS PATIEN TS. POCT-GLUCOSE [id number] 08:27:00 Test Item Value Reference Range Interpretation Comments POC-GLUCOSE METER 106 mg/dL 70-110 : TESTED A T [facility] 6720 ([facility] (test code = [facility], 1538) [address]: Crop And Soil Technician/Techni tammy ID = [id number] for SIMON CHO POCT-GLUCOSE [id number] 07:46:00 Test Item Value Reference Range Interpretation Comments POC-GLUCOSE METER 171 mg/dL 70-110 H : TESTED A T [facility] 6720 ([facility]) (test code [facility], = 1538) [address]: Crop And Soil Technician/Techni tammy ID = [id number] for YASMINE VO RAD, CHEST, 1 VIEW, NON [id number] 07:36:00Reason for exam:- >baselineShould this be performed [...] MDReport Verified Date/Time: 07/16/2019 07:36:01 Reading Location: [facility] B1 C013Y CT Body Reading Room HEMOGLOBIN [id number] 06:42:00 Test Item Value Reference Range Interpretation Comments HEMOGLOBIN A1C (BEAKER) (test code = 9.5 % 4.3-6.1 H 368) BASIC METABOLIC [id number] 06:27:00 Test Item Value Reference Range Interpretation [...] DIALYSIS PATIEN TS. HIV-1 ANTIGEN WITH HIV-1/2 [id number] 05:52:00 Test Item Value Reference Range Interpretation Comments HIV-1 ANTIGEN WITH HIV 1\\T\\2 Nonreactive Nonreactive ANTIBODY (2) (BEAKER) (test code = 2586) POCT-GLUCOSE [id number] 05:38:00 Test Item Value Reference Range Interpretation Comments POC-GLUCOSE METER 420 mg/dL 70-110 HH : Notified RN/MD: TESTED (BEAKER) (test code AT [facility] [address] = 1538) [place], [address]: Crop And Soil Technician/Techni tammy ID = [id number] for YASMINE VO TSH/FREE T4 IF [id number] 05:11:00 Test Item Value Reference Range Interpretation Comments THYROID STIMULATING HORMONE 0.87 uIU/mL 0.35-4.94 (BEAKER) (test code = 772) VITAMIN B12 AND [id number] 05:11:00 Test Item Value Reference Range Interpretation Comments VITAMIN B12 (BEAKER) (test code = 525 pg/mL 213-816 774) FOLATE (BEAKER) (test code = 362) 6.5 ng/mL >=7.0 L BASIC METABOLIC [id number] 04:57:00 Test Item Value Reference Range Interpretation [...] S NOT APPLICABLE FOR DIALYSIS PATIEN TS. [id number] 04:47:00 Test Item Value Reference Range Interpretation Comments PHOSPHORUS (BEAKER) (test code = 5.5 mg/dL 2.3-4.7 H 604) [id number] 04:47:00 Test Item Value Reference Range Interpretation Comments MAGNESIUM (BEAKER) (test code = 2.0 mg/dL 1.6-2.6 627) LIPID [id number] 04:47:00 Test Item Value Reference Range Interpretation [...] 130-159 High 160-189 Very High >=190HEPATIC FUNCTION [id number] 04:47:00 Test Item Value Reference Range Interpretation [...] = 99 U/L 6-55 H 347) PROTHROMBIN [id number] 04:11:00 Test Item Value Reference Range Interpretation [...] mechanical heart valves.CBC W/PLT COUNT & AUTO [id number] 04:03:00 Test Item Value Reference Range Interpretation [...] 417) IMMATURE GRANULOCYTES-RELATIVE 0 % 0-1 PERCENT ([facility]) (test code = 2801) POCT-GLUCOSE [id number] 03:47:00 Test Item Value Reference Range Interpretation Comments POC-GLUCOSE METER > mg/dL 70-110 HH : Notified RN/MD: TESTED ([facility]) (test code = AT [facility] [address] 1538) [place] [address]: Crop And Soil Technician/Techni tammy ID = [id number] for SYLVIA JONES FACTOR 5 LEIDEN PCR (THROMBOTIC RISK)2017-03-24 19:24:00 Test Item Value Reference Range Interpretation Comments FACTOR V LEIDEN Negative for the R506Q ([facility]) (test code = (Factor V Leiden) 718) mutation [id number] Martínez Wang MD ([facility]) (test code = (electronic signature) 9004) This test is a genotyping assay which [...] was developed and its performance characteristics [facility], Section of Molecular Pathology. It has not been cleared or approved by the U.S. Food and Drug Administration (FDA), since FDA approval is not requ ired for clinical use of the test. Validation was done as required by the Clinical Laboratory Improvement Amendments of 1988.POCT-GLUCOSE [id number] 07:28:00 Test Item Value Reference Range Interpretation Comments POC-GLUCOSE METER 200 mg/dL 70-110 H TESTED AT [facility] 6720 ([facility]) (test code = [address] [facility] 1538) [address] POCT-GLUCOSE [id number] 21:18:00 Test Item Value Reference Range Interpretation Comments POC-GLUCOSE METER 211 mg/dL 70-110 H TESTED AT [facility] 6720 ([facility]) (test code = [facility] R [facility] 1538) [address] PROTEIN, RANDOM [id number] 19:43:00 Test Item Value Reference Range Interpretation Comments PROTEIN, URINE ([facility]) (test code 286 mg/dL 0-14 H = 1569) CREATININE, RANDOM [id number] 18:27:00 Test Item Value Reference Range Interpretation [...] Normal Hexagonal (BEAKER) (test code = Phospholipid 054446) [id number] Martínez Wang MD ([employer]) (test code = (electronic 2120) signature) DRVV SCREEN RATIO 0.84 <1.20 (BEAKER) (test code = 2707) Effective 12/20/2013: Test Method ChangeDRVV Screen Ratio, DRVV 1/1 Screen Ratio, DRVV Confirm Ratio,DRVV Normalized Ratio Reference Range: <1.2Protime Reference Range ChangeNew: 11.7-14.7 Previous: 9.8-12.0PTT Reference Range ChangeNew: 22.5-36.0 Previous: 25.8-34.5URINE [id number] 11:40:00 Test Item Value Reference Range Interpretation Comments CULTURE (BEAKER) (test 20-29,000 col/mL skin code = 1095) lei POCT-GLUCOSE [id number] 08:33:00 Test Item Value Reference Range Interpretation Comments POC-GLUCOSE METER 293 mg/dL 70-110 H TESTED AT [facility] 6720 ([employer]) (test code = [place] 1538) [address] VITAMIN D, [id number] 07:49:00 Test Item Value Reference Range Interpretation Comments VITAMIN D 25-OH (BEAKER) (test code = < ng/mL 13.0-47.8 L 6784) CBC W/PLT COUNT & AUTO [id number] 05:59:00 Test Item Value Reference Range Interpretation [...] (BEAKER) (test code = 2801) BASIC METABOLIC [id number] 05:38:00 Test Item Value Reference Range Interpretation [...] S NOT APPLICABLE FOR DIALYSIS PATIEN TS. [id number] 05:37:00 Test Item Value Reference Range Interpretation Comments PHOSPHORUS (BEAKER) (test code = 4.1 mg/dL 2.3-4.7 604) [id number] 05:37:00 Test Item Value Reference Range Interpretation Comments MAGNESIUM (BEAKER) (test code = 1.7 mg/dL 1.6-2.6 627) PTH, [id number] 05:34:00 Test Item Value Reference Range Interpretation Comments PARATHYROID HORMONE INTACT 57.2 pg/mL 8.5-72.5 (BEAKER) (test code = 577) Effective 07/04/2014: Reference Range ChangeNew: 8.5-72.5 Previous: 15.0-90.0 CARDIOLIPIN ANTIBODIES, IGG AND [id number] 22:36:00 Test Item Value Reference Range Interpretation Comments ANTICARDIOLIPIN IGG ANTIBODY (BEAKER) < GPL (test code = 712) ANTICARDIOLIPIN IGM ANTIBODY (BEAKER) 2.8 MPL (test code = 713) Anticardiolipin IgG Result Interpretation:NEG: <20 GPL; U/mlPOS: >/=20 GPL; U/mlAnticardiolipin IgM Result Interpretation:NEG: <20 MPL; U/mlPOS: >/=20 MPL; U/mlPOCT-GLUCOSE [id number] 21:25:00 Test Item Value Reference Range Interpretation Comments POC-GLUCOSE METER 198 mg/dL 70-110 H TESTED AT [place] [address] ([facility]) (test code = [facility] 1538) [address] POCT-GLUCOSE [id number] 16:29:00 Test Item Value Reference Range Interpretation Comments POC-GLUCOSE METER 296 mg/dL 70-110 H TESTED AT [place] [address] ([facility]) (test code = [facility] 1538) [address] ANTI-NUCLEAR ANTIBODY (MARY)2017-03-18 15:30:00 Test Item Value Reference Range Interpretation Comments ANTI-NUCLEAR ANTIBODY (MARY) ([facility]) Negative Negative (test code = 418) HEXAGONAL [id number] 13:21:00 Test Item Value Reference Range Interpretation Comments HEXAGONAL PHOSPHOLIPID (BEAKER) Negative (test code = 1790) POCT-GLUCOSE [id number] 12:15:00 Test Item Value Reference Range Interpretation Comments POC-GLUCOSE METER 140 mg/dL 70-110 H TESTED AT [place] [address] ([facility]) (test code = [facility] 1538) [address] PROTEIN C [id number] 11:44:00 Test Item Value Reference Range Interpretation Comments PROTEIN C ACTIVITY (BEAKER) (test 155.0 % 70.0-130.0 H code = 582) Effective 12/20/2013: Reference Range Change-Adult onlyNew: 70.0-130.0 Previous: 70.0-140.0See Protein C Antigen.ANTITHROMBIN [id number] 11:43:00 Test Item Value Reference Range Interpretation Comments ANTITHROMBIN III ACTIVITY (BEAKER) 87.0 % 80.0-120.0 (test code = 711) Effective 12/20/2013: Reference Range Change-Adult onlyNew: 80.0-120.0 Previous: 90.0-128.0POCT-GLUCOSE [id number] 08:17:00 Test Item Value Reference Range Interpretation Comments POC-GLUCOSE METER 107 mg/dL 70-110 TESTED AT [facility] 6720 (BEAKER) (test code = [place] 1538) [address] BASIC METABOLIC [id number] 06:32:00 Test Item Value Reference Range Interpretation [...] PATIEN TS. CBC W/PLT COUNT & AUTO [id number] 05:56:00 Test Item Value Reference Range Interpretation [...] PERCENT (BEAKER) (test code = 2801) POCT-GLUCOSE [id number] 04:32:00 Test Item Value Reference Range Interpretation Comments POC-GLUCOSE METER 107 mg/dL 70-110 TESTED AT [place] [address] ([facility]) (test code = [place] [facility] 1538) [address] POCT-GLUCOSE [id number] 22:21:00 Test Item Value Reference Range Interpretation Comments POC-GLUCOSE METER 118 mg/dL 70-110 H TESTED AT [place] [address] ([facility]) (test code = [place] [facility] 1538) [address] POCT-GLUCOSE [id number] 21:22:00 Test Item Value Reference Range Interpretation Comments POC-GLUCOSE METER 52 mg/dL 70-110 L Notified Isabel Ro MD/TESTED AT ([facility]) [address] [facility] [address] MICROALBUMIN, RANDOM [id number] 17:57:00 Test Item Value Reference Range Interpretation Comments MICROALBUMIN URINE (BEAKER) (test > mg/dL code = 1794) Reference Range: No NormalsURINALYSIS W/ [id number] 17:36:00 Test Item Value Reference Range Interpretation [...] 516) SOURCE(BEAKER) (test code = Urine, Voided 8722) SCREEN, [id number] 17:36:00 Test Item Value Reference Range Interpretation Comments TEST URINE (BEAKER) (test Negative code = 583) CREATININE, RANDOM [id number] 17:35:00 Test Item Value Reference Range Interpretation Comments CREATININE URINE (BEAKER) (test 33.9 mg/dL code = 375) Reference Range: No NormalsSODIUM, RANDOM [id number] 17:35:00 Test Item Value Reference Range Interpretation Comments SODIUM URINE (BEAKER) (test code = 63 meq/L 243) Reference Range: No NormalsPOCT-GLUCOSE [id number] 17:34:00 Test Item Value Reference Range Interpretation Comments POC-GLUCOSE METER 118 mg/dL 70-110 H TESTED AT [place] [address] ([facility]) (test code = [place] [facility] 1538) [address] POCT-GLUCOSE [id number] 13:28:00 Test Item Value Reference Range Interpretation Comments POC-GLUCOSE METER 71 mg/dL 70-110 TESTED AT [place] [address] ([facility]) ([facility] [address] 1538) POCT-GLUCOSE [id number] 10:37:00 Test Item Value Reference Range Interpretation Comments POC-GLUCOSE METER 144 mg/dL 70-110 H TESTED AT [place] [address] ([facility]) (test code = [facility] Isabel [facility] 1538) [address] POCT-GLUCOSE [id number] 07:18:00 Test Item Value Reference Range Interpretation Comments POC-GLUCOSE METER 60 mg/dL 70-110 L TESTED AT [place] [address] ([facility]) (test code = [facility] [address] 1538) CBC W/PLT COUNT & AUTO [id number] 05:51:00 Test Item Value Reference Range Interpretation [...] (BEAKER) (test code = 2801) BASIC METABOLIC [id number] 05:51:00 Test Item Value Reference Range Interpretation [...] NOT APPLICABLE FOR DIALYSIS PATIEN TS. POCT-GLUCOSE [id number] 21:41:00 Test Item Value Reference Range Interpretation Comments POC-GLUCOSE METER 287 mg/dL 70-110 H TESTED AT [facility] 6720 (BEAKER) (test code = [place] 1538) [address] BASIC METABOLIC [id number] 12:35:00 Test Item Value Reference Range Interpretation [...] report . CBC W/PLT COUNT & AUTO [id number] 04:54:00 Test Item Value Reference Range Interpretation [...] 0-1 PERCENT (BEAKER) (test code = 2801) [id number] 20:17:00 Test Item Value Reference Range Interpretation Comments RPR SCREEN (BEAKER) (test code = Nonreactive Nonreactive 420) POCT-GLUCOSE [id number] 18:09:00 Test Item Value Reference Range Interpretation Comments POC-GLUCOSE METER 215 mg/dL 70-110 H TESTED AT [facility] 6720 (BEAKER) (test code = [place] 1538) [address] CBC W/PLT COUNT & AUTO [id number] 11:54:00 Test Item Value Reference Range Interpretation [...] (BEAKER) (test code = Normal 762) SEDIMENTATION [id number] 10:27:00 Test Item Value Reference Range Interpretation Comments SEDIMENTATION RATE, ERYTHROCYTE 79 mm/HR 0-20 H (BEAKER) (test code = 766) HEMOGLOBIN [id number] 09:33:00 Test Item Value Reference Range Interpretation Comments HEMOGLOBIN A1C (BEAKER) (test code = 9.8 % 4.3-6.1 H 368) VITAMIN [id number] 09:14:00 Test Item Value Reference Range Interpretation Comments VITAMIN B12 (BEAKER) (test code = 1790 pg/mL 213-816 H 774) TSH/FREE T4 IF [id number] 09:14:00 Test Item Value Reference Range Interpretation Comments THYROID STIMULATING HORMONE 1.08 uIU/mL 0.35-4.94 (BEAKER) (test code = 772) BASIC METABOLIC [id number] 08:52:00 Test Item Value Reference Range Interpretation [...] DATA TO CALCULA TE ESTIMATED GFR. FastingLIPID [id number] 08:51:00 Test Item Value Reference Range Interpretation [...] High 160-189 Very High >=190 FastingHCG, QUANTITATIVE, [id number] 01:43:00 Test Item Value Reference Range Interpretation Comments GONADOTROPIN, CHORIONIC (HCG) QUANT < mIU/mL 0-10 (BEAKER) (test code = 649) Non- Females: <10 mIU/mL Females: Gestation Age Reference Range(mIU/mL) 0.2-1 Week 5-50 1-2 Weeks 50-500 2-3 Weeks 100-5,000 3-4Weeks 500-10,000 4-5 Weeks 1,000-50,000 5-6 Weeks 10,000-100,000 6-8 Weeks 15,000-200,000 2-3 Months 10,000-100,000COMPREHENSIVE METABOLIC [id number] 21:57:00 Test Item Value Reference Range Interpretation [...] 7-21 (AKER) (test code = 354) CREATININE (AKER) 2.00 mg/dL 0.57-1.25 H (test code = 358) GLUCOSE RANDOM 285 mg/dL 70-105 H ([facility]) (test code = 652) CALCIUM (AKER) 7.9 mg/dL 8.4-10.2 L (test code = 697) AST (SGOT) (BEAKER) 16 U/L 5-34 (test code = 353) ALT (SGPT) (BEAKER) 14 U/L 6-55 (test code = 347) EGFR ([facility]) (test mL/min/1.73 INSUFFIC IENT code = 1092) sq m CLINICAL DATA T O CALCULATE ESTIM ATED GFR. Unit CollectPOCT-GLUCOSE [id number] 21:50:00 Test Item Value Reference Range Interpretation Comments POC-GLUCOSE METER 278 mg/dL 70-110 H TESTED AT [facility] 6720 ([facility]) (test code = [place] 1538) [id number]
--- NOTE | 2021-11-18 08:36 | RAD REPORT ---
EXAM DESCRIPTION: CT - Head Brain Wo Cont - 11/18/2021 8:27 am CLINICAL HISTORY: fall, headinjury Trauma, fall, head injury COMPARISON: Head Brain Wo Cont dated 08/15/2020; Head Brain Wo Cont dated 07/05/2020 TECHNIQUE: All CT scans are performed using dose optimization technique as appropriate and may inclu de automated exposure control or mA/KV adjustment according to patient size. FINDINGS: No intracranial hemorrhage, hydrocephalus or extra-axial fluid collection.Mild generalized brain atrophy is present with mild periventricular and deep white matter chronic microvascular ische sunshine changes.No areas of brain edema or evidence of midline shift. The paranasal sinuses and mastoids are clear. The calvarium is intact. Chronic abnormality of both gl obes. IMPRESSION: No acute intracranial abnormality.
--- NOTE | 2021-11-18 09:17 | RAD REPORT ---
EXAM DESCRIPTION: RAD - Chest Single View - 11/18/2021 9:11 am CLINICAL HISTORY: fall, left sided rib pain;Blunt chest trauma Chest pain. COMPARISON: Chest Single View dated 11/05/2021; Chest Single View dated 08/23/2021; Chest Single View d ated 05/25/2021; Abdomen 1 View (KUB) dated 08/24/2020 FINDINGS: Portable technique limits examination quality. The lungs are grossly clear. The heart is normal in size. No displaced fractures. IMPRESSION: No acute intrathoracic process suspected.
--- NOTE | 2021-11-18 09:18 | RAD REPORT ---
EXAM DESCRIPTION: RAD - Pelvis - 11/18/2021 9:11 am CLINICAL HISTORY: BLUNT TRAUMA COMPARISON: No comparisons FINDINGS: Mild osteoarthritis affects both hips. No acute fracture, dislocation or AVN. Calcified ut erine fibroids are seen. Moderate atherosclerosis.
--- NOTE | 2021-11-18 09:18 | RAD REPORT ---
EXAM DESCRIPTION: RAD - Knee Left 2 View - 11/18/2021 9:11 am CLINICAL HISTORY: PAIN Fall, pain COMPARISON: Knee Left 3 view dated 06/09/2013 FINDINGS: The bones are osteopenic. No acute fracture or dislocation. No joint effusion. Significant atherosclerosis.
--- NOTE | 2021-11-18 09:19 | RAD REPORT ---
EXAM DESCRIPTION: RAD - Femur Left - 11/18/2021 9:11 am CLINICAL HISTORY: PAIN COMPARISON: No comparisons FINDINGS: No acute fracture or dislocation is seen. Moderate atherosclerosis.
--- NOTE | 2021-11-18 09:20 | RAD REPORT ---
EXAM DESCRIPTION: RAD - Tib Fib Left - 11/18/2021 9:11 am CLINICAL HISTORY: PAIN COMPARISON: Tib Fib Left dated 05/07/2020 FINDINGS: Osteopenia is present. No acute fracture or dislocation. Moderate atherosclerosis.
--- NOTE | 2021-11-18 09:25 | EDPHYS ---
Physician Documentation [facility] Name: Archana Woo Age: 46 yrs Sex: Female : 1975 Arrival Date: 11/18/2021 Time: 08:13 Bed 6 Private MD: ED Physician Russ Canales HPI: 11/18 08:18 This 46 yrs old Female presents to ER via Unassigned with complaints of fall. rn 08:18 Details of fall: The patient fell from an upright position. Onset: The symptoms/episode rn began/occurred just prior to arrival. Associated injuries: The patient sustained injury to the chest, tenderness, left hip, left thigh, left knee, left tib/fib. Severity of symptoms: At their worst the symptoms were mild, in the emergency department the symptoms are unchanged. The patient has not experienced similar symptoms in the past. The patient has not recently seen a physician. Reports fall while trying to transfer, fell onto left side, reports mainly hurting left hip but entire leg hurts, thinks hit head, doesn't remember all events. Denies sob or abd pain. No neck pain.. Historical: - Allergies: 09:48 Zestoretic; jh6 - PMHx: 09:48 BLIND; CVA; Depression; Diabetes - NIDDM; DIALYSIS MWF; dialysis W \T\ F; GERD; jh6 Hyperlipidemia; Hypertension; left arm paralysis; neuropathy; THYROID CANCER; TIA; - PSHx: 09:48 right AKA; jh6 - Immunization history:: Adult Immunizations up to date. - Family history:: not pertinent. - Social history:: Smoking status: Patient denies any tobacco usage or history of. - Hospitalizations: : No recent hospitalization is reported. ROS: 08:18 Constitutional: Negative for fever, chills, and weight loss, Eyes: Negative for injury, rn pain, redness, and discharge, ENT: Negative for injury, pain, and discharge, Neck: Negative for injury, pain, and swelling, Cardiovascular: Negative for palpitations Respiratory: Negative for shortness of breath, cough, wheezing Abdomen/GI: Negative for abdominal pain, nausea, vomiting, diarrhea, and constipation, Back: Negative for injury and pain, MS/Extremity: + injury and pain to left leg Skin: Negative for discoloration Neuro: Negative for headache, weakness, numbness, tingling, and seizure. Exam: 08:18 Constitutional: This is a well developed, well nourished patient who is awake, alert, rn and in no acute distress. Head/Face: Normocephalic, atraumatic. Eyes: Periorbital areas with no swelling, redness, or edema. Neck: NO midline cervical tenderness Cardiovascular: Regular rate and rhythm. No pulse deficits. Respiratory: No increased work of breathing, no retractions or nasal flaring. Abdomen/GI: soft, non-tender, no ecchymosis, non-distended Back: No spinal tenderness. No costovertebral tenderness. Full range of motion. Skin: + a few abrasions to bilateral lower ext, no lacerations MS/ Extremity: + painful ROM left hip, mild painful ROM left knee and tender to palpation left tib-fib area. No gross deformity. Neuro: Awake and alert, GCS 15, oriented to person, place, time, and situation. Vital Signs: 08:17 BP 169 / 84; Pulse 84; Resp 17; Temp 97.5(TE); Pulse Ox 98% on R/A; Weight 71.67 kg; [facility] Height 5 ft. 4 in. (162.56 cm); Pain 4/10; 09:49 BP 171 / 86; Pulse 76; Resp 17; Pulse Ox 100% ; Pain 3/10; [facility] 08:17 Body Mass Index 27.12 (71.67 kg, 162.56 cm) [facility] MDM: 08:13 Patient medically screened. rn 09:22 Differential diagnosis: closed head injury, contusion, fracture, sprain, strain. rn Differential diagnosis: abrasion. Data reviewed: vital signs, nurses notes. Data reviewed: radiologic studies, plain films, and as a result, I will discharge patient. Counseling: I had a detailed discussion with the patient and/or guardian regarding: the historical points, exam findings, and any diagnostic results supporting the discharge/admit diagnosis, radiology results, the need for outpatient follow up, to return to the emergency department if symptoms worsen or persist or if there are any questions or concerns that arise at home. Special discussion: I discussed with the patient/guardian in detail that at this point there is no indication for admission to the hospital. It is understood, however, that if the symptoms persist or worsen the patient needs to return immediately for re-evaluation. ED course: No acute fractures on xrays, stable vitals, will dc so she can get dialysis as scheduled. No indication for emergent dialysis here. . 11/18 08:14 Order name: CT Head Brain wo Cont; Complete Time: 09:22 rn 11/18 08:14 Order name: XRAY Chest (1 view); Complete Time: 09:22 rn 11/18 08:14 Order name: XRAY Pelvis; Complete Time: 09:22 rn 11/18 08:14 Order name: XRAY Femur LEFT; Complete Time: : rn 11/18 08:14 Order name: XRAY Knee LEFT 2 view; Complete Time: : rn 11/18 08:14 Order name: XRAY Tib Fib LEFT; Complete Time: : rn Administered Medications: No medications were administered Disposition Summary: 11/18/21 09:24 Discharge Ordered Location: Home rn Problem: new rn Symptoms: have improved rn Condition: Stable rn Diagnosis - Contusion of left hip rn - Contusion of left knee rn - Unspecified injury of head, initial encounter rn Followup: rn - With: Private Physician - When: As needed - Reason: Recheck today's complaints, Re-evaluation by your physician Discharge Instructions: - Discharge Summary Sheet rn - Abrasion rn - Contusion rn - Head Injury, Adult rn Forms: - Medication Reconciliation Form rn - Thank You Letter rn - Antibiotic learning coach - Prescription Opioid Use rn - SBAR form jh6 Signatures: Dispatcher [employer] Russ Bruce MD MD rn Hastedt, Jennifer, RN RN jh6
--- NOTE | 2021-11-18 09:25 | ER ---
Nurse's Notes [facility] Name: Archana Woo Age: 46 yrs Sex: Female : 1975 Arrival Date: 11/18/2021 Time: 08:13 Bed 6 Private MD: Diagnosis: Contusion of left hip;Contusion of left knee;Unspecified injury of head, initial encounter Presentation: 11/18 08:17 Chief complaint: EMS states: pt turning over in bed and fell out, landing on l side. Pt 6 c/o pain to l hip, l arm, and l leg. Coronavirus screen: Vaccine status: Patient reports receiving the 2nd dose of the covid vaccine. Ebola Screen: Patient negative for fever greater than or equal to 101.5 degrees Fahrenheit, and additional compatible Ebola Virus Disease symptoms Patient denies exposure to infectious person. Patient denies travel to an Ebola-affected area in the 21 days before illness onset. Initial Sepsis Screen: Does the patient meet any 2 criteria? No. Patient's initial sepsis screen is negative. Does the patient have a suspected source of infection? No. Patient's initial sepsis screen is negative. Risk Assessment: Do you want to hurt yourself or someone else? Patient reports no desire to harm self or others. Onset of symptoms was November 18, 2021. 08:17 Method Of Arrival: EMS: [facility] 08:17 Acuity: TARUN 4 [facility] Triage Assessment: 08:19 General: Appears in no apparent distress. Behavior is calm, cooperative. Pain: [facility] Complains of pain in left iliac crest, left hip and left leg Pain currently is 4 out of 10 on a pain scale. Quality of pain is described as aching, throbbing. Musculoskeletal: Tenderness present in left iliac crest and left hip. Injury Description: Abrasion sustained to left shetty. Historical: - Allergies: 09:48 Zestoretic; jh6 - PMHx: 09:48 BLIND; CVA; Depression; Diabetes - NIDDM; DIALYSIS MWF; dialysis W \T\ F; GERD; jh6 Hyperlipidemia; Hypertension; left arm paralysis; neuropathy; THYROID CANCER; TIA; - PSHx: 09:48 right AKA; 6 - Immunization history:: Adult Immunizations up to date. - Family history:: not pertinent. - Social history:: Smoking status: Patient denies any tobacco usage or history of. - Hospitalizations: : No recent hospitalization is reported. Screenin:21 Abuse screen: Denies threats or abuse. Nutritional screening: No deficits noted. 6 Tuberculosis screening: No symptoms or risk factors identified. Fall Risk Fall in past 12 months (25 points). Ambulatory Aid- None/Bed Rest/Nurse Assist (0 pts). Assessment: 08:21 Reassessment: No changes from previously documented assessment. see triage note. jh6 09:47 Reassessment: No changes from previously documented assessment. Patient and/or family [facility] updated on plan of care and expected duration. Pain level reassessed. Patient is alert, oriented x 3, equal unlabored respirations, skin warm/dry/pink. General: Appears in no apparent distress. Vital Signs: 08:17 BP 169 / 84; Pulse 84; Resp 17; Temp 97.5(TE); Pulse Ox 98% on R/A; Weight 71.67 kg; 6 Height 5 ft. 4 in. (162.56 cm); Pain 4/10; 09:49 BP 171 / 86; Pulse 76; Resp 17; Pulse Ox 100% ; Pain 3/10; jh6 08:17 Body Mass Index 27.12 (71.67 kg, 162.56 cm) 6 ED Course: 08:13 Patient arrived in ED. rn 08:13 Russ Canales MD is Attending Physician. rn 08:17 Elissa Ca, RN is Primary Nurse. 6 08:19 Triage completed. jh6 08:[address] jh6 08:21 Arm band placed on right wrist. Patient placed in an exam room, on a stretcher, on [facility] pulse oximetry. 08:29 CT Head Brain wo Cont In Process Unspecified. EDMS 09:13 XRAY Chest (1 view) In Process Unspecified. EDMS 09:13 XRAY Pelvis In Process Unspecified. EDMS 09:13 XRAY Femur LEFT In Process Unspecified. EDMS 09:13 XRAY Knee LEFT 2 view In Process Unspecified. EDMS 09:13 XRAY Tib Fib LEFT In Process Unspecified. EDMS 09:47 No provider procedures requiring assistance completed. jh6 09:48 Call light in reach. Side rails up X2. Adult w/ patient. jh6 10:00 Patient did not have IV access during this emergency room visit. meryl Administered Medications: No medications were administered Outcome: :24 Discharge ordered by . kita :59 Discharged to group home. meryl :59 Condition: good :59 Discharge instructions given to EMS, Instructed on discharge instructions, Demonstrated understanding of instructions. 10:11 Patient left the ED. iw Signatures: Dispatcher [employer] EDMargarita Nichols RN RN Russ Canales MD MD rn Hastedt, Jennifer, RN RN jh6
[2021-11-18] MEDS ORDERED: MEPERIDINE HCL 25 MG/ML SYR ONE (09:52)
[2021-11-18 10:16] VITALS: TEMP 97.5
[2021-11-18 10:17] VITALS: BP 171/86; O2SAT 100
== END 2021-11-18 10:11 | disposition home or self-care (01) ==
LOC: ER 08:11
DX: S09.90XA Unspecified injury of head, initial encounter (principal); S70.02XA Contusion of left hip, initial encounter; S80.02XA Contusion of left knee, initial encounter; W19.XXXA Unspecified fall, initial encounter; I10 Essential (primary) hypertension; E11.9 Type 2 diabetes mellitus without complications; Z99.2 Dependence on renal dialysis; Z85.850 Personal history of malignant neoplasm of thyroid; Z88.8 Allergy status to other drugs, medicaments and biological substances
CPT/HCPCS: 70450; 71045; 72170; 73560; 73552; 73590; 99284; J2175

== ENCOUNTER 2021-11-25 09:09 | Inpatient (IN) | payer OTHER ==
--- OUTSIDE RECORDS SUMMARY | 2021-11-25 09:15 | XMS REPORT | Continuity of Care Document ---
:1975 Author Organization [facility] t Address [address] [place] [address] Care Team Providers Name Role Phone Faiza [...] Date Expiration Date S lenard UNITED MEDICARE [id number] 2016 HMO 00:00:00 FORMERLY [facility] [id number] 2013 PLAN 00:00:00 [facility] [id number] NEREIDA PADRON [id number] Problems Condition Condition Condition Status Onset Resolution Last Treating Co mments Source Name Details Category Date Date Treatment Clinician Date Proliferat Proliferat Disease Active Overview : Univers evonne evonne 3-30 Both ity of diabetic diabetic 00:00: [id number] Gee as retinopath retinopath 00 Diagnosis Medical y y Term Branch [employer] Utility 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: [facility]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 3-22 ICD10 ity of mellitus mellitus 00:00: Diagnosis Gee as without without 00 Term Medical complicati complicati [employer] Branch ons ons Utility Allergies, Adverse Reactions, Alerts Allergy Allergy Status Severity Reaction(s) Onset Inactive Treating Comm ents Source Name Type Date Date Clinician Shjai Propensi Active Unknown - Uni vers il-Elizabeth ty to See comments 01-01 it y of chloroth adverse 00:00: [place] iazide reaction 00 Medical s Branch LISINOPR DRUG Active Unknown-Cmnt Un ruby IL-HYDRO 18 ity of CHLOROTH 00:00: [place] IAZIDE 00 Medical Geismar No Known DA Active U [facility] 08-22 [facility] 00:00: [address] No Known DA Active U [facility]ie 08-22 [facility] 00:00: [address] NO KNOWN Drug Active Univers ALLERGIE Class ity of S [facility] NO KNOWN Allergy Active [facility] ALLERGIE S Social History Social Habit Start Date Stop Date Quantity Comments Source Exposure to Not sure [facility] SARS-CoV-2 (event) Medica l Branch Tobacco use and 2021-01-01 2021-01-01 Never used [facility] exposure 00:00:00 00:00:00 Medical Branch Sex Ass[birth year] At [birth year] [facility] 00:00:00 00:00:00 Medical Geismar Smoking Status Start Date Stop Date Source Never smoker [facility] Medications Ordered Filled Start Stop Current Ordering Indication Dosage Frequency Signature Comments Components Source Medication Medication Date Date Medication? Clinician (SIG) Name Name PRED [facility] Yes 1 drop as Un ruby OPHTHALMIC 3-23 needed ity of 02:09: [address] [facility] drop as Un ruby OPHTHALMIC 3-23 needed ity of 02:09: [address] [facility] 1 drop as Un ruby OPHTHALMIC 3-23 needed ity of 02:09: [address] ALLERGEN Yes 1 drop as Univ ers OTIC 3-08 needed ity of 00:19: [address] ALLERGEN Yes 1 drop as Univ ers OTIC 3-08 needed ity of 00:19: [place] 37 Medical Branch ALLERGEN 2007-0 Yes 1 drop as Univ ers OTIC 3-08 needed ity of 00:19: [address] Branch ATROPINE 2006- Yes Use As DIR Uni vers (BULK) MISC 1-24 ity of 00:41: [place] [address] Medical Branch ATROPINE Yes Use As DIR Uni vers (BULK) MISC -24 ity of 00:41: [address] Branch ATROPINE 2006- Yes Use As DIR Uni vers (BULK) MISC -24 ity of 00:41: [address] Branch TOBRAMYCIN 2005- Yes 0.05 mL [...] Left Eye ity of % 00:00: QID [place] OPHTHALMIC Medical DRPS Branch Vital Signs Vital Name Observation Time Observation Value Comments Source HEIGHT 2020-05-17 162.6 cm 00:00:00 WEIGHT 2020-05-17 61.236 kg 00:00:00 Systolic blood 2021-01-01 162 mm[Hg] Simultaneous [place] of pressure 15:08:00 filing. User may [place] Medic al not have seen Branch previous data. Diastolic blood 2021-01-01 76 mm[Hg] Simultaneous [place] o f pressure 15:08:00 filing. User may [place] Medic al not have seen Branch previous data. Heart rate 2021-01-01 97 /min Simultaneous [facility] 15:08:00 filing. User may [place] Medic al not have seen Branch previous data. Body temperature 2021-01-[address] [facility] 15:08:00 filing. User may [place] Medic al not have seen Branch previous data. Respiratory rate 2021-01-01 18 /min University 15:08:00 [facility] Body weight 2021-01-01 63.957 kg University 15:08:00 [facility] Oxygen saturation 2021-01-01 99 /min Simultaneous [facility] in Arterial blood 15:08:00 filing. User may [place] Medical by Pulse oximetry not have seen Branch previous data. HEIGHT 2020-05-17 162.6 cm 00:00:00 WEIGHT 2020-05-17 61.236 kg 00:00:00 Procedures Procedure Date / Time Performed Performing Clinician Isidro carter [id number] 2019-05-18 00:00:00 [facility] [id number] 2019-05-18 00:00:00 ENC[facility] [id number] 2019-05-18 00:00:00 [facility] [id number] 2019-05-18 00:00:00 E[facility] [id number] 2019-05-18 00:00:00 E[facility] Encounters Start End Encounter Admission Attending Care Care Encounter Source Date/Time Date/Time Type Type Clinicians Facility Department ID 2021-09-11 Outpatient [place], STLMLC STLMLC [id number] 12:03:02 Ana 08244 [facility] 2020-06-15 Inpatient Kristina ACOSTA Kristina [id number] [facility] 08:00:00 [facility] 2020-05-18 Inpatient ER CAROL MONSIVAISL Internal [id number] [facility] 04:28:00 SWATHISHTA Med 2019-08-23 Inpatient EL MARIAM IbrahimU SURG [id number] [facility] 15:45:00 Imran [id number] [facility] 2019-04-12 Inpatient MH MED [id number] [facility] W 13:57:46 2021-07-02 2021-07-02 [id number] Univers 10:30:00 10:30:00 CATALINA [id number] [facility] 2021-01-01 2021-01-01 Office [facility] [id number] Univers 09:55:30 11:22:11 Visit Elissa Campa [id number] [facility] [id number] [facility] Professio [id number] [address] 2021-01-01 2021-01-01 Outpatient R VENKATESH [facility] [id number] Univers 09:45:00 09:45:00 ELISSA sol o f [facility] 2020-10-30 2020-10-30 [facility]patient [id number] 2020-06-26 2020-06-26 Outpatient STLMLC [facility] [id number] [facility] 2019-09-20 2019-09-20 Outpatient WALESKA Ibrahim SURG [id number] [facility] 15:45:00 15:45:00 Imran [facility] 2019-05-16 2019-05-27 Inpatient 3 [facility] ENCPL CVA [id number] ENCPL 21:43:00 [...] only after consultation wi the clinical microbiology [facility].Refer to previous cul ture ofCandida parapsilosis GRAM STAIN RESULT No White blood cells seen (BEAKER) (test code = 1123) GRAM STAIN RESULT No organisms seen (BEAKER) (test code = 929881) SURGICALLY OBTAINED CULTURE + GRAM [id number] 11:24:00 Test Item Value Reference Range Interpretation Comments CULTURE (BEAKER) A <1+ Trinidad (test code = parapsilosis 1095) GRAM STAIN No White blood RESULT (BEAKER) cells seen (test code = 1123) GRAM STAIN No organisms seen RESULT (BEAKER) (test code = 03542) ANAEROBIC [id number] 15:40:00 Test Item Value Reference Range Interpretation Comments CULTURE (BEAKER) (test No anaerobes isolated code = 1095) ANAEROBIC [id number] 15:40:00 Test Item Value Reference Range Interpretation Comments CULTURE (BEAKER) (test No anaerobes isolated code = 1095) POCT-GLUCOSE [id number] 08:09:00 Test Item Value Reference Range Interpretation Comments POC-GLUCOSE METER 151 mg/dL 70-110 H : TESTED A T [facility] 1317 (BEAKER) (test code [facility], = 1538) [facility] 77 478: Correctional Classification Counselor/Techni tammy ID = [id number] for Emilee Kovacs BASIC METABOLIC [id number] 06:34:00 Test Item Value Reference Range Interpretation [...] S NOT APPLICABLE FOR DIALYSIS PATIEN TS. Correctional Classification Counselor ID - [id number] 06:23:00 Test Item Value Reference Range Interpretation Comments PHOSPHORUS (BEAKER) (test code = 4.0 mg/dL 2.5-4.5 604) Correctional Classification Counselor ID - ADMINCBC W/PLT COUNT & AUTO [id number] 05:45:00 Test Item Value Reference Range Interpretation [...] PERCENT (BEAKER) (test code = 2801) POCT-GLUCOSE [id number] 20:47:00 Test Item Value Reference Range Interpretation Comments POC-GLUCOSE METER 205 mg/dL 70-110 H : TESTED A T [facility] 1317 (BEAKER) (test code [address], = 1538) [place] [address]: Correctional Classification Counselor/Techni tammy ID = [id number] for Pat Reyes BLOOD [id number] 13:00:00 Test Item Value Reference Range Interpretation Comments CULTURE (BEAKER) (test No growth in 5 days code = 1095) POCT-GLUCOSE [id number] 11:38:00 Test Item Value Reference Range Interpretation Comments POC-GLUCOSE METER 74 mg/dL 70-110 : TESTED A T [facility] 1317 (BEAKER) (test code = [address], 1538) [place] [address]: Correctional Classification Counselor/Techni tammy ID = [id number] for Soheila Cheatham POCT-GLUCOSE [id number] 07:31:00 Test Item Value Reference Range Interpretation Comments POC-GLUCOSE METER 104 mg/dL 70-110 : TESTED A T [facility] 1317 (BEAKER) (test code [address], = 1538) [place] 77 [address]: Correctional Classification Counselor/Techni tammy ID = [id number] for Soheila Cheatham BASIC METABOLIC [id number] 05:25:00 Test Item Value Reference Range Interpretation [...] S NOT APPLICABLE FOR DIALYSIS PATIEN TS. Correctional Classification Counselor ID - [id number] 05:21:00 Test Item Value Reference Range Interpretation Comments PHOSPHORUS (BEAKER) (test code = 5.1 mg/dL 2.5-4.5 H 604) Correctional Classification Counselor ID - ADMINVANCOMYCIN LEVEL, [id number] 05:20:00 Test Item Value Reference Range Interpretation Comments VANCOMYCIN RANDOM (BEAKER) (test 19.7 ug/mL code = 523) Reference Range: No NormalsOperator ID - ADMINCBC W/PLT COUNT & AUTO [id number] 05:10:00 Test Item Value Reference Range Interpretation [...] PERCENT (BEAKER) (test code = 2801) POCT-GLUCOSE [id number] 20:52:00 Test Item Value Reference Range Interpretation Comments POC-GLUCOSE METER 127 mg/dL 70-110 H : TESTED A T [facility] 1317 (BEAKER) (test code [facility] [address], = 1538) [facility] 77 478: Correctional Classification Counselor/Techni tammy ID = [id number] for Aanu siem, felicity TISSUE [id number] 11:55:00Surgical Pathology Report Case: [id number] Authorizing Provider: Jada Acosta DPM Collected: 05/21/2020 12:36 PM Ordering Location: [facility] 5th Floor Received: 05/21/2020 12:49 PM Pathologist: Ann Meeks MD Specimen: Benito ne, right 1st metatarsal head bone biopsy BONE, RIGHT FIRSTMETATARSAL HEAD, BIOPSY: - BONE WITH FOCAL FIBROSIS AND CHRONIC INFLAMMATION, CONSISTENT WITH CHRONIC OSTEOMYELITIS Signing Pathologist Direct Phone Line: [phone] signed by Ann Meeks MD on 05/22/2020 at 11:55 [id number]; [id number] foot abscessRight 1st metatarsalhead bone biopsySpecimen is received in formalin designated "bone" and consists of two marin-red bone fragments measuring 1 x 0.3 x 0.3 cm, submitted after decalcification in cassette A1. SQ/plPerformed. [facility], Department of Pathology, [address] [place] [address], [facility], Department of Pathology, [address] [place] [address], [facility], [facility] of Pathology, [address] [place] [address], SNMP-GLUCOSE [id number] 11:41:00 Test Item Value Reference Range Interpretation Comments POC-GLUCOSE METER 84 mg/dL 70-110 : TESTED A T [facility] 1317 (BEAKER) (test code = [address], 1538) [place] [address]: Correctional Classification Counselor/Techni tammy ID = [id number] for Mary Adames POCT-GLUCOSE [id number] 07:38:00 Test Item Value Reference Range Interpretation Comments POC-GLUCOSE METER 93 mg/dL 70-110 : TESTED A T [facility] 1317 (BEAKER) (test code = [address], 1538) [place] [address] 478: Correctional Classification Counselor/Techni tammy ID = [id number] for Mary Adames BASIC METABOLIC [id number] 06:04:00 Test Item Value Reference Range Interpretation [...] S NOT APPLICABLE FOR DIALYSIS PATIEN TS. Correctional Classification Counselor ID - [id number] 05:51:00 Test Item Value Reference Range Interpretation Comments PHOSPHORUS (BEAKER) (test code = 4.4 mg/dL 2.5-4.5 604) Correctional Classification Counselor ID - ADMINCBC W/PLT COUNT & AUTO [id number] 05:30:00 Test Item Value Reference Range Interpretation [...] PERCENT (BEAKER) (test code = 2801) POCT-GLUCOSE [id number] 21:49:00 Test Item Value Reference Range Interpretation Comments POC-GLUCOSE METER 95 mg/dL 70-110 : TESTED A T [facility] 1317 (BEAKER) (test code = [address], 1538) [place] 4[address]: Correctional Classification Counselor/Techni tammy ID = [id number] for [address] Jacquie POCT-GLUCOSE [id number] 12:40:00 Test Item Value Reference Range Interpretation Comments POC-GLUCOSE METER 80 mg/dL 70-110 : TESTED A T [facility] 1317 (BEAKER) (test code = [address], 1538) [place] [address]: Correctional Classification Counselor/Techni tammy ID = [id number] for Berenice Hamilton HCG, SERUM, [id number] 10:42:00 Test Item Value Reference Range Interpretation Comments TEST SERUM (BEAKER) (test Negative code = 584) POCT-GLUCOSE [id number] 07:56:00 Test Item Value Reference Range Interpretation Comments POC-GLUCOSE METER 105 mg/dL 70-110 : TESTED A T [facility] 1317 (BEAKER) (test code [address], = 1538) [facility] [place] 77 [address]: Correctional Classification Counselor/Techni tammy ID = [id number] for Mary Adames BASIC METABOLIC [id number] 04:24:00 Test Item Value Reference Range Interpretation [...] S NOT APPLICABLE FOR DIALYSIS PATIEN TS. Correctional Classification Counselor ID - ADMINIRON, TIBC, % SAT. (WITHOUT FERRITIN)2020-05-21 04:24:00 Test Item Value Reference Range Interpretation Comments IRON (BEAKER) (test code = 547) 68.0 ug/dL 45.0-170.0 TOTAL IRON BINDING CAPACITY 170 ug/dL 250-550 L (BEAKER) (test code = 769) IRON % SATURATION (2) (BEAKER) 40 % 20-55 (test code = 2590) Correctional Classification Counselor ID - [id number] 04:20:00 Test Item Value Reference Range Interpretation Comments MAGNESIUM (BEAKER) (test code = 2.0 mg/dL 1.5-3.0 627) Correctional Classification Counselor ID - ADMINPROTHROMBIN [id number] 04:18:00 Test Item Value Reference Range Interpretation Comments PROTIME (BEAKER) (test code = 759) 10.9 sec 9.3-12.0 INR (BEAKER) (test code = 370) 1.00 <=5.90 RECOMMENDED COUMADIN/WARFARIN INR THERAPY RANGESSTANDARD DOSE: 2.0 - 3.0 Includes: PROPHYLAXIS forvenous thrombosis, systemic embolization; TREATMENT for venous thrombosis and/or pulmonary embolus.HIGH RISK: Target INR is 2.5-3.5 for patients with mechanical heart valves.Final Information (Auto Output)Final Information (Auto Output)[id number] 04:18:00 Test Item Value Reference Range Interpretation Comments PARTIAL THROMBOPLASTIN TIME (BEAKER) 27.9 sec 23.0-35.0 (test code = 760) Final Information (Auto Output)[id number] 04:17:00 Test Item Value Reference Range Interpretation Comments PHOSPHORUS (BEAKER) (test code = 6.9 mg/dL 2.5-4.5 H 604) Correctional Classification Counselor ID - ADMINVANCOMYCIN LEVEL, [id number] 04:16:00 Test Item Value Reference Range Interpretation Comments VANCOMYCIN RANDOM (BEAKER) (test 13.8 ug/mL code = 523) Reference Range: No NormalsOperator ID - ADMINCBC W/PLT COUNT & AUTO [id number] 04:03:00 Test Item Value Reference Range Interpretation [...] PERCENT (BEAKER) (test code = 2801) POCT-GLUCOSE [id number] 21:19:00 Test Item Value Reference Range Interpretation Comments POC-GLUCOSE METER 118 mg/dL 70-110 H : TESTED A T [facility] 1317 (BEAKER) (test code [facility] [address], = 1538) [facility] 77 478: Correctional Classification Counselor/Techni tammy ID = [id number] for Jacquie Vázquez POCT-GLUCOSE [id number] 16:03:00 Test Item Value Reference Range Interpretation Comments POC-GLUCOSE METER 273 mg/dL 70-110 H : TESTED A T [facility] 1317 (BEAKER) (test code [address], = 1538) [place] [address] 478: Correctional Classification Counselor/Techni tammy ID = [id number] for Mary Adames POCT-GLUCOSE [id number] 11:32:00 Test Item Value Reference Range Interpretation Comments POC-GLUCOSE METER 224 mg/dL 70-110 H : TESTED A T [facility] 1317 (BEAKER) (test code [address], = 1538) [place] [address] 478: Correctional Classification Counselor/Techni tammy ID = [id number] for Mary Adames POCT-GLUCOSE [id number] 07:33:00 Test Item Value Reference Range Interpretation Comments POC-GLUCOSE METER 260 mg/dL 70-110 H : TESTED A T [facility] 1317 (BEAKER) (test code [address], = 1538) [place] [address]: Correctional Classification Counselor/Techni tammy ID = [id number] for Mary Adames TSH/FREE T4 IF [id number] 07:06:00 Test Item Value Reference Range Interpretation Comments THYROID STIMULATING HORMONE 3.130 uIU/mL 0.350-5.500 (BEAKER) (test code = 772) Correctional Classification Counselor ID - ADMINBASIC METABOLIC [id number] 06:52:00 Test Item Value Reference Range Interpretation [...] S NOT APPLICABLE FOR DIALYSIS PATIEN TS. Correctional Classification Counselor ID - [id number] 06:49:00 Test Item Value Reference Range Interpretation Comments MAGNESIUM (BEAKER) 1.9 mg/dL 1.5-3.0 Specimen slightly (test code = 627) hemolyzed Correctional Classification Counselor ID - [id number] 06:46:00 Test Item Value Reference Range Interpretation Comments PHOSPHORUS (BEAKER) 6.2 mg/dL 2.5-4.5 H Specimen slightly (test code = 604) hemolyzed Correctional Classification Counselor ID - ADMINCBC W/PLT COUNT & AUTO [id number] 05:25:00 Test Item Value Reference Range Interpretation [...] PERCENT (BEAKER) (test code = 2801) POCT-GLUCOSE [id number] 22:13:00 Test Item Value Reference Range Interpretation Comments POC-GLUCOSE METER 318 mg/dL 70-110 H : TESTED A T [facility] 1317 ([facility]) (test code [facility], = 1538) [place] [address]: Correctional Classification Counselor/Techni tammy ID = [id number] for Elissa Diaz POCT-GLUCOSE [id number] 16:36:00 Test Item Value Reference Range Interpretation Comments POC-GLUCOSE METER 238 mg/dL 70-110 H : Notified RN/MD: TESTED ([facility]) (test code AT [facility] [address] [address] = 1538) [place] [address]: Correctional Classification Counselor/Techni tammy ID = [id number] for Debbie Castañedabarbara HEPATITIS B SURFACE [id number] 12:07:00 Test Item Value Reference Range Interpretation Comments HEPATITIS B SURFACE ANTIBODY 9.4 mIU/mL <8.0 H ([facility]) (test code = 647) Correctional Classification Counselor ID - RORYGPOCT-GLUCOSE [id number] 11:31:00 Test Item Value Reference Range Interpretation Comments POC-GLUCOSE METER 170 mg/dL 70-110 H : Notified RN/MD: TESTED ([facility]) (test code AT [facility] [address] = 1538) [place] [address]: Correctional Classification Counselor/Techni tammy ID = [id number] for Cuate Castañeda VANCOMYCIN LEVEL, [id number] 09:31:00 Test Item Value Reference Range Interpretation Comments VANCOMYCIN RANDOM (BEAKER) (test 14.3 ug/mL code = 523) Reference Range: No NormalsOperator ID - ADMINBASIC METABOLIC [id number] 08:59:00 Test Item Value Reference Range Interpretation [...] S NOT APPLICABLE FOR DIALYSIS PATIEN TS. Correctional Classification Counselor ID - [id number] 08:56:00 Test Item Value Reference Range Interpretation Comments MAGNESIUM (BEAKER) (test code = 1.9 mg/dL 1.5-3.0 627) Correctional Classification Counselor ID - [id number] 08:53:00 Test Item Value Reference Range Interpretation Comments PHOSPHORUS (BEAKER) (test code = 4.7 mg/dL 2.5-4.5 H 604) Correctional Classification Counselor ID - ADMINCBC W/PLT COUNT & AUTO [id number] 08:51:00 Test Item Value Reference Range Interpretation [...] PERCENT (BEAKER) (test code = 2801) POCT-GLUCOSE [id number] 07:53:00 Test Item Value Reference Range Interpretation Comments POC-GLUCOSE METER 153 mg/dL 70-110 H : Notified RN/MD: TESTED (BEAKER) (test code AT [facility] 1317 [facility] = 1538) [place] [address]: Correctional Classification Counselor/Techni tammy ID = [id number] for Cuate Castañeda SARS-COV2/RT-PCR ([facility])2020-05-19 00:02:00 Test Item Value Reference Range Interpretation Comments SARS-COV2/RT-PCR (test Negative Not Detected, Negative, code = 7364995) See external report for linked test SARS-COV-2 PERFORMING LAB [facility] GEOFFREY (test code = 7624687) Negative result for this test determines that [...] 564(g) of the Act.Fact Sheet for Healthcare Providers:https://www.[employer]/sites/default/files/product/documents/Fact_Shee e_QH_Onsvluobs_Ebpv_BRSJ-QtG-2.pdfFact Sheet for Healthcare Patients:https://www.[employer]/sites/default/files/product/ documents/Vmjr_Vuuph_Uizywcno_Fhda_ZZPH-LlC-6.pdfPerforming Laboratory:[facility], [place] [address]MPYH-PUHXLMP METER 2020-05-18 21:01:00 Test Item Value Reference Range Interpretation Comments POC-GLUCOSE METER 190 mg/dL 70-110 H : TESTED A T [facility] 1317 (BEAKER) (test code [address], = 1538) [place] [address]: Correctional Classification Counselor/Techni tammy ID = [id number] for Nehal Patiño HEPATITIS B SURFACE [id number] 20:29:00 Test Item Value Reference Range Interpretation Comments HEPATITIS B SURFACE ANTIGEN (2) Nonreactive Nonreactive (BEAKER) (test code = 2585) Correctional Classification Counselor ID - ADMINPOCT-GLUCOSE [id number] 16:43:00 Test Item Value Reference Range Interpretation Comments POC-GLUCOSE METER 211 mg/dL 70-110 H : TESTED A T [facility] 1317 (BEAKER) (test code [address], = 1538) [place] [address]: Correctional Classification Counselor/Techni tammy ID = [id number] for Daryn marcano Mary MR, EXTREMITY, LOWER, WITHOUT CONTRAST, [id number] 15:44:00Recent amputation for R great toe osteomyelitis/diabetic [...] Tyler Verified Date/Time: 05/18/2020 15:44:11 Reading Location: [facility] Radiology Reading Room POCT-GLUCOSE [id number] 12:55:00 Test Item Value Reference Range Interpretation Comments POC-GLUCOSE METER 169 mg/dL 70-110 H : TESTED A T [facility] 1317 (BEAKER) (test code [address], = 1538) [facility] 77 [address]: Correctional Classification Counselor/Techni tammy ID = [id number] for Daryn marcanoMary HEPATIC FUNCTION [id number] 09:20:00 Test Item Value Reference Range Interpretation [...] Specimen slightly (test code = 347) hemolyzed Correctional Classification Counselor ID - [id number] 09:20:00 Test Item Value Reference Range Interpretation Comments MAGNESIUM (BEAKER) 3.8 mg/dL 1.5-3.0 H Specimen slightly (test code = 627) hemolyzed Correctional Classification Counselor ID - ADMINHEMOGLOBIN [id number] 09:20:00 Test Item Value Reference Range Interpretation Comments HEMOGLOBIN A1C (BEAKER) (test code = 9.4 % 4.3-6.1 H 368) Correctional Classification Counselor ID - ADMINBASIC METABOLIC [id number] 09:19:00 Test Item Value Reference Range Interpretation [...] S NOT APPLICABLE FOR DIALYSIS PATIEN TS. Correctional Classification Counselor ID - ADMINC-REACTIVE [id number] 09:19:00 Test Item Value Reference Range Interpretation Comments C-REACTIVE PROTEIN (BEAKER) (test 1.17 mg/dL 0.00-0.50 H code = 676) Correctional Classification Counselor ID - ADMINVANCOMYCIN LEVEL, [id number] 09:18:00 Test Item Value Reference Range Interpretation Comments VANCOMYCIN TROUGH (BEAKER) (test 15.1 ug/mL 10.0-20.0 code = 522) Correctional Classification Counselor ID - ADMINCBC W/PLT COUNT & AUTO [id number] 09:09:00 Test Item Value Reference Range Interpretation [...] PERCENT (BEAKER) (test code = 2801) POCT-GLUCOSE [id number] 08:18:00 Test Item Value Reference Range Interpretation Comments POC-GLUCOSE METER 177 mg/dL 70-110 H : TESTED A T [facility] 1317 (BEAKER) (test code [address], = 1538) [facility] 77 478: Correctional Classification Counselor/Techni tammy ID = [id number] for Mary Adames RAD, CHEST, 1 VIEW, NON [id number] 08:11:00Reason for exam:->shortness of breathShould this be [...] Marychuy Buenoort Verified Date/Time: 08:11:49 Reading Location: [facility] Radiology Reading Room Electronically signedby: MARYCHUY BUENO M.D. on 05/18/2020 08:11 AMHEPATITIS B SURF AB, [id number] 18:16:00 Test Item Value Reference Range Interpretation [...] ~~~~~~~~ ~~~~~~~~~~~~~~~ ~~~~~~~~ ~ AG HEPATITIS B [id number] 18:16:00 Test Item Value Reference Range Interpretation Comments AG HEPATITIS B SURFACE (test code = NEGATIVE NONREACTIVE HBSAG) HIV 12 AB [id number] 18:16:00 Test Item Value Reference Range Interpretation Comments HIV 1 2 COMBO AG/AB SCREEN AB/AG NON REACTIVE NONREACTIVE (test code = [id number]) HEPATITIS B SURF AB, [id number] 17:51:00 Test Item Value Reference Range Interpretation Comments HEPATITIS B SURF AB, QUANT (test code mIU/mL = HBSABQ) AG HEPATITIS B [id number] 17:51:00 Test Item Value Reference Range Interpretation Comments AG HEPATITIS B SURFACE (test code = NEGATIVE NONREACTIVE HBSAG) HIV 12 AB [id number] 17:51:00 Test Item Value Reference Range Interpretation Comments HIV 1 2 COMBO AG/AB SCREEN AB/AG NON REACTIVE NONREACTIVE (test code = [id number]) HEPATITIS B SURF AB, [id number] 17:39:00 Test Item Value Reference Range Interpretation Comments HEPATITIS B SURF AB, QUANT (test code mIU/mL = HBSABQ) AG HEPATITIS B [id number] 17:39:00 Test Item Value Reference Range Interpretation Comments AG HEPATITIS B SURFACE (test code = NEGATIVE NONREACTIVE HBSAG) HIV 12 AB [id number] 17:39:00 Test Item Value Reference Range Interpretation Comments HIV 1 2 COMBO AG/AB SCREEN (test code = NONREACTIVE [id number]) GLUCOSE BEDSIDE [id number] 12:00:00 Test Item Value Reference Range Interpretation Comments GLUCOSE BEDSIDE TESTING (test code 136 MG/DL 60-99 H = GLUBED) GLUCOSE BEDSIDE [id number] 21:08:00 Test Item Value Reference Range Interpretation Comments GLUCOSE BEDSIDE TESTING (test code = 84 MG/DL 60-99 N GLUBED) BASIC METABOLIC [id number] 16:40:00 Test Item Value Reference Range Interpretation [...] 9.0 MG/DL 8.4-10.2 N CA) HCG SERUM [id number] 16:40:00 Test Item Value Reference Range Interpretation Comments HCG SERUM QUAL (test code = HCGQL) NEGATIVE NEGATIVE A PROTHROMBIN [id number] 16:32:00 Test Item Value Reference Range Interpretation [...] sunshine embolism. 3.0 - 4.5 Comments to Workers' Compensation Commissioner: PREOPPTT [id number] 16:32:00 Test Item Value Reference Range Interpretation Comments PTT ACTIVATED (test code = APTT) 30.3 SECONDS 22.0-33.0 N Comments to Workers' Compensation Commissioner: PREOPBASIC METABOLIC [id number] 16:32:00 Test Item Value Reference Range Interpretation [...] code = CA) MG/DL 8.7-9.7 HCG SERUM [id number] 16:32:00 Test Item Value Reference Range Interpretation Comments HCG SERUM QUAL (test code = HCGQL) NEGATIVE NEGATIVE A BASIC METABOLIC [id number] 16:31:00 Test Item Value Reference Range Interpretation [...] code = CA) MG/DL 8.7-9.7 HCG SERUM [id number] 16:31:00 Test Item Value Reference Range Interpretation Comments HCG SERUM QUAL (test code = HCGQL) NEGATIVE CBC W/AUTO [id number] 16:25:00 Test Item Value Reference Range Interpretation [...] 0.00 K/mm3 0.0-0.1 N NRBC#) GLUCOSE BEDSIDE [id number] 18:41:00 Test Item Value Reference Range Interpretation Comments GLUCOSE BEDSIDE TESTING (test code = 83 MG/DL 60-99 N GLUBED) BASIC METABOLIC [id number] 15:04:00 Test Item Value Reference Range Interpretation [...] 9.1 MG/DL 8.4-10.2 N CA) BASIC METABOLIC [id number] 15:00:00 Test Item Value Reference Range Interpretation [...] code = CA) MG/DL 8.7-9.7 HCG SERUM [id number] 14:59:00 Test Item Value Reference Range Interpretation Comments HCG SERUM QUAL (test code = HCGQL) NEGATIVE NEGATIVE A PROTHROMBIN [id number] 14:56:00 Test Item Value Reference Range Interpretation [...] syste sunshine embolism. 3.0 - 4.5 PTT [id number] 14:56:00 Test Item Value Reference Range Interpretation Comments PTT ACTIVATED (test code = APTT) 27.9 SECONDS 22.0-33.0 N CBC W/AUTO [id number] 14:43:00 Test Item Value Reference Range Interpretation [...] N NRBC#) RAD, CHEST, 1 VIEW, NON [id number] 11:27:00Reason for exam:->r/o pneumoniaShould this be performed [...] Location: [facility] Reading Room POCT-GLUCOSE [id number] 08:34:00 Test Item Value Reference Range Interpretation Comments POC-GLUCOSE METER 126 mg/dL 70-110 H : TESTED A T [facility] 6720 (BEAKER) (test code = [place], 1538) [address]: Correctional Classification Counselor/Techni tammy ID = [id number] for Raymond travis Baldomero BASIC METABOLIC [id number] 06:56:00 Test Item Value Reference Range Interpretation [...] S NOT APPLICABLE FOR DIALYSIS PATIEN TS. [id number] 06:45:00 Test Item Value Reference Range Interpretation Comments PHOSPHORUS (BEAKER) (test code = 4.6 mg/dL 2.3-4.7 604) [id number] 06:45:00 Test Item Value Reference Range Interpretation Comments MAGNESIUM (BEAKER) (test code = 2.0 mg/dL 1.6-2.6 627) CBC W/PLT COUNT & AUTO [id number] 05:35:00 Test Item Value Reference Range Interpretation [...] PERCENT (BEAKER) (test code = 2801) PROTHROMBIN [id number] 05:24:00 Test Item Value Reference Range Interpretation [...] is2.5-3.5 for patients wiht mechanical heart valves.POCT-GLUCOSE [id number] 21:08:00 Test Item Value Reference Range Interpretation Comments POC-GLUCOSE METER 191 mg/dL 70-110 H : TESTED A T [facility] 6720 (BEAKER) (test code = [facility], 1538) [address]: Correctional Classification Counselor/Techni tammy ID = [id number] for Keith Quintero POCT-GLUCOSE [id number] 17:20:00 Test Item Value Reference Range Interpretation Comments POC-GLUCOSE METER 168 mg/dL 70-110 H : TESTED A T [facility] 6720 ([employer]) (test code = [facility], 1538) [address]: Correctional Classification Counselor/Techni tammy ID = [id number] for HU NT, MAVIS POCT-GLUCOSE [id number] 12:49:00 Test Item Value Reference Range Interpretation Comments POC-GLUCOSE METER 221 mg/dL 70-110 H : TESTED A T [facility] 6720 (BEAKER) (test code = [facility], 1538) [address]: Correctional Classification Counselor/Techni tammy ID = [id number] for HU NT, MAVIS SCREEN, [id number] 11:54:00 Test Item Value Reference Range Interpretation Comments TEST URINE (BEAKER) (test Negative code = 583) POCT-GLUCOSE [id number] 09:11:00 Test Item Value Reference Range Interpretation Comments POC-GLUCOSE METER 112 mg/dL 70-110 H : TESTED A T [facility] 6720 ([employer]) (test code = [facility], 1538) [address]: Correctional Classification Counselor/Techni tammy ID = [id number] for MAVIS GARRIDO BASIC METABOLIC [id number] 06:50:00 Test Item Value Reference Range Interpretation [...] S NOT APPLICABLE FOR DIALYSIS PATIEN TS. [id number] 06:38:00 Test Item Value Reference Range Interpretation Comments PHOSPHORUS (BEAKER) (test code = 3.9 mg/dL 2.3-4.7 604) [id number] 06:38:00 Test Item Value Reference Range Interpretation Comments MAGNESIUM (BEAKER) (test code = 1.9 mg/dL 1.6-2.6 627) PROTHROMBIN [id number] 06:12:00 Test Item Value Reference Range Interpretation [...] mechanical heart valves.CBC W/PLT COUNT & AUTO [id number] 06:06:00 Test Item Value Reference Range Interpretation [...] 0-1 PERCENT (BEAKER) (test code = 2801) [id number] 04:27:00 Test Item Value Reference Range Interpretation Comments RPR SCREEN (TAINA) (test code = Nonreactive Nonreactive 420) MR, MRA, BRAIN, WITHOUT [id number] 03:28:00Reason for exam:- >StrokeWhat is the patient's [...] 07/17/2019 03:28:33 MR, MRA, NECK, WITHOUT IV [id number] 03:28:00FINAL REPORT MR, BRAIN, WITHOUT CONTRAST, MR, [...] Verified Date/Time: 07/17/2019 03:28:33 MR, BRAIN, WITHOUT [id number] 03:28:00 Reason for exam:->StrokeWhat is the patient's [...] Ortiz MDReport Verified Date/Time: 07/17/2019 03:28:33 POCT-GLUCOSE [id number] 21:16:00 Test Item Value Reference Range Interpretation Comments POC-GLUCOSE METER 143 mg/dL 70-110 H : TESTED A T [facility] 6720 (BEAKER) (test code = [facility], 1538) 25[address]: Correctional Classification Counselor/Techni tammy ID = [id number] for JANELL GEOGRE POCT-GLUCOSE [id number] 17:33:00 Test Item Value Reference Range Interpretation Comments POC-GLUCOSE METER 108 mg/dL 70-110 : TESTED A T [facility] 6720 (BEAKER) (test code = [facility], 1538) [address]: Correctional Classification Counselor/Techni tammy ID = [id number] for BETSEY AVELINO TAVON JJ POCT-GLUCOSE [id number] 17:25:00 Test Item Value Reference Range Interpretation Comments POC-GLUCOSE METER 155 mg/dL 70-110 H : TESTED A T [facility] 6720 (BEAKER) (test code = [facility], 1538) [address]: Correctional Classification Counselor/Techni tammy ID = [id number] for SIMON CHO HEPATITIS B SURFACE [id number] 14:30:00 Test Item Value Reference Range Interpretation Comments HEPATITIS B SURFACE ANTIGEN (2) Nonreactive Nonreactive (BEAKER) (test code = 2585) POCT-GLUCOSE [id number] 12:17:00 Test Item Value Reference Range Interpretation Comments POC-GLUCOSE METER 146 mg/dL 70-110 H : TESTED A T [facility] 6720 (BEAKER) (test code = [facility], 1538) [address]: Correctional Classification Counselor/Techni tammy ID = [id number] for MAVIS GARRIDO BASIC METABOLIC [id number] 09:26:00 Test Item Value Reference Range Interpretation [...] NOT APPLICABLE FOR DIALYSIS PATIEN TS. POCT-GLUCOSE [id number] 08:27:00 Test Item Value Reference Range Interpretation Comments POC-GLUCOSE METER 106 mg/dL 70-110 : TESTED A T [facility] 6720 (BEAKER) (test code = [address] [facility], 1538) [address]: Correctional Classification Counselor/Techni tammy ID = [id number] for SIMON CHO POCT-GLUCOSE [id number] 07:46:00 Test Item Value Reference Range Interpretation Comments POC-GLUCOSE METER 171 mg/dL 70-110 H : TESTED A T [facility] 6720 ([facility]) (test code [facility], = 1538) [address]: Correctional Classification Counselor/Techni tammy ID = [id number] for YASMINE VO RAD, CHEST, 1 VIEW, NON [id number] 07:36:00Reason for exam:- >baselineShould this be performed [...] MDReport Verified Date/Time: 07/16/2019 07:36:01 Reading Location: [facility] [address] Body Reading Room HEMOGLOBIN [id number] 06:42:00 Test Item Value Reference Range Interpretation Comments HEMOGLOBIN A1C (BEAKER) (test code = 9.5 % 4.3-6.1 H 368) BASIC METABOLIC [id number] 06:27:00 Test Item Value Reference Range Interpretation [...] DIALYSIS PATIEN TS. HIV-1 ANTIGEN WITH HIV-1/2 [id number] 05:52:00 Test Item Value Reference Range Interpretation Comments HIV-1 ANTIGEN WITH HIV 1\\T\\2 Nonreactive Nonreactive ANTIBODY (2) (BEAKER) (test code = 2586) POCT-GLUCOSE [id number] 05:38:00 Test Item Value Reference Range Interpretation Comments POC-GLUCOSE METER 420 mg/dL 70-110 HH : Notified RN/MD: TESTED (BEAKER) (test code AT [facility] [address] = 1538) [place], [address]: Correctional Classification Counselor/Techni tammy ID = [id number] for YASMINE VO TSH/FREE T4 IF [id number] 05:11:00 Test Item Value Reference Range Interpretation Comments THYROID STIMULATING HORMONE 0.87 uIU/mL 0.35-4.94 (BEAKER) (test code = 772) VITAMIN B12 AND [id number] 05:11:00 Test Item Value Reference Range Interpretation Comments VITAMIN B12 (BEAKER) (test code = 525 pg/mL 213-816 774) FOLATE (BEAKER) (test code = 362) 6.5 ng/mL >=7.0 L BASIC METABOLIC [id number] 04:57:00 Test Item Value Reference Range Interpretation [...] S NOT APPLICABLE FOR DIALYSIS PATIEN TS. [id number] 04:47:00 Test Item Value Reference Range Interpretation Comments PHOSPHORUS (BEAKER) (test code = 5.5 mg/dL 2.3-4.7 H 604) [id number] 04:47:00 Test Item Value Reference Range Interpretation Comments MAGNESIUM (BEAKER) (test code = 2.0 mg/dL 1.6-2.6 627) LIPID [id number] 04:47:00 Test Item Value Reference Range Interpretation [...] 130-159 High 160-189 Very High >=190HEPATIC FUNCTION [id number] 04:47:00 Test Item Value Reference Range Interpretation [...] = 99 U/L 6-55 H 347) PROTHROMBIN [id number] 04:11:00 Test Item Value Reference Range Interpretation [...] mechanical heart valves.CBC W/PLT COUNT & AUTO [id number] 04:03:00 Test Item Value Reference Range Interpretation [...] 417) IMMATURE GRANULOCYTES-RELATIVE 0 % 0-1 PERCENT ([facility]) (test code = 2801) POCT-GLUCOSE [id number] 03:47:00 Test Item Value Reference Range Interpretation Comments POC-GLUCOSE METER > mg/dL 70-110 HH : Notified RN/MD: TESTED ([facility]) (test code = AT [facility] 6720 [facility] 1538) [place] [address]: Correctional Classification Counselor/Techni tammy ID = [id number] for SYLVIA JONES FACTOR 5 LEIDEN PCR (THROMBOTIC RISK)2017-03-24 19:24:00 Test Item Value Reference Range Interpretation Comments FACTOR V LEIDEN Negative for the R506Q ([facility]) (test code = (Factor V Leiden) 718) mutation [id number] Martínez Wang MD ([facility]) (test code = (electronic signature) 6132) This test is a genotyping assay which [...] was developed and [facility], Section of Molecular Pathology. It has not been cleared or approved by the U.S. Food and Drug Administration (FDA), since FDA approval is not requ ired for clinical use of the test. Validation was done as required by the Clinical Laboratory Improvement Amendments of 1988.POCT-GLUCOSE [id number] 07:28:00 Test Item Value Reference Range Interpretation Comments POC-GLUCOSE METER 200 mg/dL 70-110 H TESTED AT [facility] 6720 ([facility]) (test code = [facility] 1538) [address] POCT-GLUCOSE [id number] 21:18:00 Test Item Value Reference Range Interpretation Comments POC-GLUCOSE METER 211 mg/dL 70-110 H TESTED AT [facility] 6720 ([facility]) (test code = [facility] R [facility] 1538) [address] PROTEIN, RANDOM [id number] 19:43:00 Test Item Value Reference Range Interpretation Comments PROTEIN, URINE (BEAKER) (test code 286 mg/dL 0-14 H = 1569) CREATININE, RANDOM [id number] 18:27:00 Test Item Value Reference Range Interpretation [...] Normal Hexagonal (BEAKER) (test code = Phospholipid 934253) [id number] Martínez Wang MD ([facility]) (test code = (electronic 2610) signature) DRVV SCREEN RATIO 0.84 <1.20 (BEAKER) (test code = 2707) Effective 12/20/2013: Test Method ChangeDRVV Screen Ratio, DRVV 1/1 Screen Ratio, DRVV Confirm Ratio,DRVV Normalized Ratio Reference Range: <1.2Protime Reference Range ChangeNew: 11.7-14.7 Previous: 9.8-12.0PTT Reference Range ChangeNew: 22.5-36.0 Previous: 25.8-34.5URINE [id number] 11:40:00 Test Item Value Reference Range Interpretation Comments CULTURE (BEAKER) (test 20-29,000 col/mL skin code = 1095) lei POCT-GLUCOSE [id number] 08:33:00 Test Item Value Reference Range Interpretation Comments POC-GLUCOSE METER 293 mg/dL 70-110 H TESTED AT [facility] 6720 ([employer]) (test code = [place] [place] 1538) [address] VITAMIN D, [id number] 07:49:00 Test Item Value Reference Range Interpretation Comments VITAMIN D 25-OH (BEAKER) (test code = < ng/mL 13.0-47.8 L 3264) CBC W/PLT COUNT & AUTO [id number] 05:59:00 Test Item Value Reference Range Interpretation [...] (BEAKER) (test code = 2801) BASIC METABOLIC [id number] 05:38:00 Test Item Value Reference Range Interpretation [...] S NOT APPLICABLE FOR DIALYSIS PATIEN TS. [id number] 05:37:00 Test Item Value Reference Range Interpretation Comments PHOSPHORUS (BEAKER) (test code = 4.1 mg/dL 2.3-4.7 604) [id number] 05:37:00 Test Item Value Reference Range Interpretation Comments MAGNESIUM (BEAKER) (test code = 1.7 mg/dL 1.6-2.6 627) PTH, [id number] 05:34:00 Test Item Value Reference Range Interpretation Comments PARATHYROID HORMONE INTACT 57.2 pg/mL 8.5-72.5 (BEAKER) (test code = 577) Effective 07/04/2014: Reference Range ChangeNew: 8.5-72.5 Previous: 15.0-90.0 CARDIOLIPIN ANTIBODIES, IGG AND [id number] 22:36:00 Test Item Value Reference Range Interpretation Comments ANTICARDIOLIPIN IGG ANTIBODY (BEAKER) < GPL (test code = 712) ANTICARDIOLIPIN IGM ANTIBODY (BEAKER) 2.8 MPL (test code = 713) Anticardiolipin IgG Result Interpretation:NEG: <20 GPL; U/mlPOS: >/=20 GPL; U/mlAnticardiolipin IgM Result Interpretation:NEG: <20 MPL; U/mlPOS: >/=20 MPL; U/mlPOCT-GLUCOSE [id number] 21:25:00 Test Item Value Reference Range Interpretation Comments POC-GLUCOSE METER 198 mg/dL 70-110 H TESTED AT [place] [address] ([facility]) (test code = [facility] 1538) [address] POCT-GLUCOSE [id number] 16:29:00 Test Item Value Reference Range Interpretation Comments POC-GLUCOSE METER 296 mg/dL 70-110 H TESTED AT [place] [address] ([facility]) (test code = [facility] 1538) [address] ANTI-NUCLEAR ANTIBODY (MARY)2017-03-18 15:30:00 Test Item Value Reference Range Interpretation Comments ANTI-[facility] ([facility]) [facility] Negative Negative (test code = 418) HEXAGONAL [id number] 13:21:00 Test Item Value Reference Range Interpretation Comments HEXAGONAL PHOSPHOLIPID (BEAKER) Negative (test code = 1790) POCT-GLUCOSE [id number] 12:15:00 Test Item Value Reference Range Interpretation Comments POC-GLUCOSE METER 140 mg/dL 70-110 H TESTED AT [place] [address] ([facility]) (test code = [facility] 1538) [address] PROTEIN C [id number] 11:44:00 Test Item Value Reference Range Interpretation Comments PROTEIN C ACTIVITY (BEAKER) (test 155.0 % 70.0-130.0 H code = 582) Effective 12/20/2013: Reference Range Change-Adult onlyNew: 70.0-130.0 Previous: 70.0-140.0See Protein C Antigen.ANTITHROMBIN [id number] 11:43:00 Test Item Value Reference Range Interpretation Comments ANTITHROMBIN III ACTIVITY (BEAKER) 87.0 % 80.0-120.0 (test code = 711) Effective 12/20/2013: Reference Range Change-Adult onlyNew: 80.0-120.0 Previous: 90.0-128.0POCT-GLUCOSE [id number] 08:17:00 Test Item Value Reference Range Interpretation Comments POC-GLUCOSE METER 107 mg/dL 70-110 TESTED AT [facility] 6720 (BEAKER) (test code = [place] [place] 1538) [address] BASIC METABOLIC [id number] 06:32:00 Test Item Value Reference Range Interpretation [...] PATIEN TS. CBC W/PLT COUNT & AUTO [id number] 05:56:00 Test Item Value Reference Range Interpretation [...] PERCENT (BEAKER) (test code = 2801) POCT-GLUCOSE [id number] 04:32:00 Test Item Value Reference Range Interpretation Comments POC-GLUCOSE METER 107 mg/dL 70-110 TESTED AT [place] [address] ([facility]) (test code = [place] [place] [facility] 1538) [address] POCT-GLUCOSE [id number] 22:21:00 Test Item Value Reference Range Interpretation Comments POC-GLUCOSE METER 118 mg/dL 70-110 H TESTED AT [place] [address] ([facility]) (test code = [place] [facility] 1538) [address] POCT-GLUCOSE [id number] 21:22:00 Test Item Value Reference Range Interpretation Comments POC-GLUCOSE METER 52 mg/dL 70-110 L Notified Isabel Ro MD/TESTED AT ([facility]) (test code = [place] [address] SAYDA 6[address]) [facility] [address] MICROALBUMIN, RANDOM [id number] 17:57:00 Test Item Value Reference Range Interpretation Comments MICROALBUMIN URINE (BEAKER) (test > mg/dL code = 1794) Reference Range: No NormalsURINALYSIS W/ [id number] 17:36:00 Test Item Value Reference Range Interpretation [...] 516) SOURCE(BEAKER) (test code = Urine, Voided 0243) SCREEN, [id number] 17:36:00 Test Item Value Reference Range Interpretation Comments TEST URINE (BEAKER) (test Negative code = 583) CREATININE, RANDOM [id number] 17:35:00 Test Item Value Reference Range Interpretation Comments CREATININE URINE (BEAKER) (test 33.9 mg/dL code = 375) Reference Range: No NormalsSODIUM, RANDOM [id number] 17:35:00 Test Item Value Reference Range Interpretation Comments SODIUM URINE (BEAKER) (test code = 63 meq/L 243) Reference Range: No NormalsPOCT-GLUCOSE [id number] 17:34:00 Test Item Value Reference Range Interpretation Comments POC-GLUCOSE METER 118 mg/dL 70-110 H TESTED AT [place] [address] ([facility]) (test code = [place] [facility] 1538) [address] POCT-GLUCOSE [id number] 13:28:00 Test Item Value Reference Range Interpretation Comments POC-GLUCOSE METER 71 mg/dL 70-110 TESTED AT [place] [address] ([facility]) (test code = [facility] Isabel [facility] [address] 1538) POCT-GLUCOSE [id number] 10:37:00 Test Item Value Reference Range Interpretation Comments POC-GLUCOSE METER 144 mg/dL 70-110 H TESTED AT [place] [address] ([facility]) (test code = [facility] Isabel [facility] 1538) [address] POCT-GLUCOSE [id number] 07:18:00 Test Item Value Reference Range Interpretation Comments POC-GLUCOSE METER 60 mg/dL 70-110 L TESTED AT [place] [address] ([facility]) (test code = [facility] Isabel [facility] [address] 1538) CBC W/PLT COUNT & AUTO [id number] 05:51:00 Test Item Value Reference Range Interpretation [...] (BEAKER) (test code = 2801) BASIC METABOLIC [id number] 05:51:00 Test Item Value Reference Range Interpretation [...] NOT APPLICABLE FOR DIALYSIS PATIEN TS. POCT-GLUCOSE [id number] 21:41:00 Test Item Value Reference Range Interpretation Comments POC-GLUCOSE METER 287 mg/dL 70-110 H TESTED AT [facility] 6720 (BEAKER) (test code = [place] 1538) [address] BASIC METABOLIC [id number] 12:35:00 Test Item Value Reference Range Interpretation [...] report . CBC W/PLT COUNT & AUTO [id number] 04:54:00 Test Item Value Reference Range Interpretation [...] 0-1 PERCENT (BEAKER) (test code = 2801) [id number] 20:17:00 Test Item Value Reference Range Interpretation Comments RPR SCREEN (BEAKER) (test code = Nonreactive Nonreactive 420) POCT-GLUCOSE [id number] 18:09:00 Test Item Value Reference Range Interpretation Comments POC-GLUCOSE METER 215 mg/dL 70-110 H TESTED AT [facility] 6720 (BEAKER) (test code = [place] 1538) [address] CBC W/PLT COUNT & AUTO [id number] 11:54:00 Test Item Value Reference Range Interpretation [...] (BEAKER) (test code = Normal 762) SEDIMENTATION [id number] 10:27:00 Test Item Value Reference Range Interpretation Comments SEDIMENTATION RATE, ERYTHROCYTE 79 mm/HR 0-20 H (BEAKER) (test code = 766) HEMOGLOBIN [id number] 09:33:00 Test Item Value Reference Range Interpretation Comments HEMOGLOBIN A1C (BEAKER) (test code = 9.8 % 4.3-6.1 H 368) VITAMIN [id number] 09:14:00 Test Item Value Reference Range Interpretation Comments VITAMIN B12 (BEAKER) (test code = 1790 pg/mL 213-816 H 774) TSH/FREE T4 IF [id number] 09:14:00 Test Item Value Reference Range Interpretation Comments THYROID STIMULATING HORMONE 1.08 uIU/mL 0.35-4.94 (BEAKER) (test code = 772) BASIC METABOLIC [id number] 08:52:00 Test Item Value Reference Range Interpretation [...] DATA TO CALCULA TE ESTIMATED GFR. FastingLIPID [id number] 08:51:00 Test Item Value Reference Range Interpretation [...] High 160-189 Very High >=190 FastingHCG, QUANTITATIVE, [id number] 01:43:00 Test Item Value Reference Range Interpretation Comments GONADOTROPIN, CHORIONIC (HCG) QUANT < mIU/mL 0-10 (BEAKER) (test code = 649) Non- Females: <10 mIU/mL Females: Gestation Age Reference Range(mIU/mL) 0.2-1 Week 5-50 1-2 Weeks 50-500 2-3 Weeks 100-5,000 3-4Weeks 500-10,000 4-5 Weeks 1,000-50,000 5-6 Weeks 10,000-100,000 6-8 Weeks 15,000-200,000 2-3 Months 10,000-100,000COMPREHENSIVE METABOLIC [id number] 21:57:00 Test Item Value Reference Range Interpretation [...] meq/L 98-107 (test code = 382) CO2 ([facility]) (test 25 meq/L 22-29 code = 355) BLOOD UREA NITROGEN 21 mg/dL 7-21 ([facility]) (test code = 354) CREATININE (AKER) 2.00 mg/dL 0.57-1.25 H (test code = 358) GLUCOSE RANDOM 285 mg/dL 70-105 H ([facility]) (test code = 652) CALCIUM ([facility]) 7.9 mg/dL 8.4-10.2 L (test code = 697) AST (SGOT) ([facility]) 16 U/L 5-34 (test code = 353) ALT (SGPT) ([facility]) 14 U/L 6-55 (test code = 347) EGFR ([facility]) (test mL/min/1.73 INSUFFIC IENT code = 1092) sq m CLINICAL DATA T O CALCULATE ESTIM ATED GFR. Unit CollectPOCT-GLUCOSE [id number] 21:50:00 Test Item Value Reference Range Interpretation Comments POC-GLUCOSE METER 278 mg/dL 70-110 H TESTED AT [facility] 6720 ([facility]) (test code = [place] 1538) [id number]
[2021-11-25] MEDS ORDERED: hydrOXYzine HCL 25 MG TAB ONE (10:22)
[2021-11-25 12:02] LABS: Potassium 4.4 mmol/L (3.5-5.1)
--- NOTE | 2021-11-25 12:13 | RAD REPORT ---
EXAM DESCRIPTION: RAD - Chest Single View - 11/25/2021 12:02 pm CLINICAL HISTORY: ESRD, shortness of breath COMPARISON: Portable November 18 TECHNIQUE: AP portable chest image was obtained 11/25/2021 12:02 pm . FINDINGS: Lung volumes are low. No peripheral mass or consolidation. No significant failure or volum e overload. Minimal interstitial edema or infiltrate cannot be excluded due to the baseline pattern a nd low lung volumes. Heart and vasculature are normal. No measurable pleural effusion and no pneumothorax. No acute bony abnormality seen. No acute aortic findings suspected. IMPRESSION: No acute cardiopulmonary process. Baseline interstitial pattern could mask very minimal interstitial edema or infiltrate.
[2021-11-25 12:27] LABS: Troponin High Sensitivity 410.2 pg/mL (<58.9)
[2021-11-25 12:37] LABS: Absolute Lymphocytes (CBC) 1.2 K/uL (0.7-4.9); Hematocrit 34.4 % (36.0-45.0); Lymphocytes % 18.8 % (15.3-44.8); MPV 8.5 fL (7.6-11.3)
--- NOTE | 2021-11-25 12:56 | ER ---
Nurse's Notes [facility] Name: Archana Woo Age: 46 yrs Sex: Female : 1975 Arrival Date: 11/25/2021 Time: 09:41 Bed 14 Private MD: Diagnosis: End stage renal disease;Subsequent non-ST elevation (NSTEMI) myocardial infarction;Acidosis Presentation: 11/25 09:46 Chief complaint: EMS states: PER PT "PAIN ALL OVER AND ITCHY", FACILITY STATES 911 bp CALLED BECAUSE PT REFUSING DIALYSIS AND MEDICATIONS. EMS RECORDS SHOW TRANSPORT FOR DIALYSIS. HEALTHCARE STAFF STATES PT DNR, BUT UNABLE TO FIND FORM. EMERGENCY MEDICAL CONDITION UNCLEAR. Coronavirus screen: At this time, the client does not indicate any symptoms associated with coronavirus-19. Ebola Screen: No symptoms or risks identified at this time. Initial Sepsis Screen: Does the patient meet any 2 criteria? No. Patient's initial sepsis screen is negative. Does the patient have a suspected source of infection? No. Patient's initial sepsis screen is negative. Risk Assessment: Do you want to hurt yourself or someone else? Patient reports no desire to harm self or others. Onset of symptoms is unknown. Care prior to arrival: Glucose check: 290. 09:46 Method Of Arrival: EMS: [facility] bp 09:46 Acuity: TARUN 3 bp Triage Assessment: 09:50 General: Appears in no apparent distress. comfortable, obese, Behavior is calm, bp cooperative, appropriate for age. Pain: Complains of pain in GENERALIZED. EENT: BLIND AT BASELINE. Neuro: Level of Consciousness is alert, obeys commands, lethargic, Oriented to Appropriate for age. Cardiovascular: No deficits noted. Respiratory: No deficits noted. GI: No signs and/or symptoms were reported involving the gastrointestinal system. : No signs and/or symptoms were reported regarding the genitourinary system. Derm: No deficits noted. Musculoskeletal: No deficits noted. Historical: - Allergies: 09:50 Zestoretic; bp - PMHx: 09:50 BLIND; Diabetes - NIDDM; TIA; CVA; Depression; DIALYSIS MWF; dialysis W \\T\\ F; GERD; bp Hyperlipidemia; Hypertension; left arm paralysis; neuropathy; THYROID CANCER; - PSHx: 09:50 right AKA; bp - Immunization history:: Adult Immunizations up to date. - Social history:: Smoking status: Patient denies any tobacco usage or history of. - Family history:: not pertinent. - Hospitalizations: : No recent hospitalization is reported. Screenin:50 Abuse screen: Denies threats or abuse. Denies injuries from another. Nutritional bp screening: No deficits noted. Tuberculosis screening: No symptoms or risk factors identified. Fall Risk None identified. Assessment: 09:50 General: SEE TRIAGE NOTE. bp 10:26 Reassessment: PT UNCOOPERATIVE WITH ATTEMPT TO GAIN PIV, FLAILING AT STAFF. bp 10:32 Reassessment: PT OFFERED PHLEBOTOMY DRAW INSTEAD OF PIV. REFUSING ALL FURTHER VENOUS bp ACCESS. 10:45 Reassessment: MD AT B/S. PT PERSUADED TO ALLOW LAB DRAW. bp 11:22 Reassessment: PHLEBOTOMY AT B/S. bp 12:00 Reassessment: PHLEBOTOMY CALLED FOR RECOLLECT. bp 13:00 Reassessment: CARDIOLOGY AT B/S. bp 13:22 Reassessment: PT TO OR MANAGER WITH OR MANAGER NURSES. VERBAL CONSENT BY RN OVER PHONE WITH bp SISTER AND COSIGNED BY OR MANAGER NURSE. SISTER- KEVIN SMITH [phone]. 13:27 Reassessment: spoke with Gilberto [place]wood boat builder supervisor who states that patient will not be ss coming back to ER. Vital Signs: 09:46 BP 172 / 93; Pulse 95; Resp 24; Temp 98.7; Pulse Ox 96% ; bp 12:00 BP 139 / 70; Pulse 88; Resp 13; Pulse Ox 95% ; bp 13:00 BP 152 / 86; Pulse 88; Resp 13; Pulse Ox 97% ; bp ED Course: 09:41 Patient arrived in ED. aa5 09:41 Jesus Sanford, RN is Primary Nurse. bp 09:50 Triage completed. bp 09:50 Arm band placed on. bp 09:50 Patient has correct armband on for positive identification. Bed in low position. Call bp light in reach. Side rails up X2. 09:51 Russ Canales MD is Attending Physician. rn 10:33 EKG done, by ED staff, reviewed by Russ Canales MD. mb7 11:17 EKG done, by ED staff, reviewed by Russ Canales MD. mb7 12:04 XRAY Chest (1 view) In Process Unspecified. EDMS 12:55 Baidoo, Giovani is Hospitalizing Provider. rn Administered Medications: 10:15 Drug: hydrOXYzine 25 mg Route: PO; bp 12:08 Follow up: Response: No adverse reaction bp 10:39 CANCELLED (Duplicate Order): Levophed (norepinephrine) (4 mg/250 mL D5W 4 mcg/min IV at rn calculated rate Per protocol; (final concentration is 16 microgram/mL) Outcome: 12:55 Decision to Hospitalize by Provider. rn 13:27 Instructed on the need for admit. ss 13:27 Patient left the ED. ss Signatures: Dispatcher [employer] EDNV Russ Canales MD MD rn Calderon, Audri RN RN aa5 May Hebert RN RN Jesus Truong RN RN bp Caro Jo mb7 Corrections: (The following items were deleted from the chart) 13:27 13:22 Reassessment: PT TO OR MANAGER WITH OR MANAGER NURSES bp bp
--- NOTE | 2021-11-25 12:56 | EDPHYS ---
Physician Documentation [facility] Name: Archana Woo Age: 46 yrs Sex: Female : 1975 Arrival Date: 11/25/2021 Time: 09:41 Bed 14 Private MD: ED Physician Russ Canales HPI: 11/25 10:45 This 46 yrs old Female presents to ER via EMS with complaints of itching, pain rn all over. 10:45 Pt reports itching "all over", . rn 12:55 Onset: The symptoms/episode began/occurred at an unknown time. Severity of symptoms: At rn their worst the symptoms were mild in the emergency department the symptoms are unchanged. The patient has experienced similar episodes in the past. The patient has not recently seen a physician. EMS reports patient complains of itching and pain all over, was supposed to get dialysis today but [facility] at [facility]. [facility] reports last dialysis was last week, maybe Thursday. . Historical: - Allergies: 09:50 Zestoretic; bp - PMHx: 09:50 BLIND; Diabetes - NIDDM; TIA; CVA; Depression; DIALYSIS MWF; dialysis W \\T\\ F; GERD; bp Hyperlipidemia; Hypertension; left arm paralysis; neuropathy; THYROID CANCER; - PSHx: 09:50 right AKA; bp - Immunization history:: Adult Immunizations up to date. - Social history:: Smoking status: Patient denies any tobacco usage or history of. - Family history:: not pertinent. - Hospitalizations: : No recent hospitalization is reported. ROS: 12:55 Constitutional: Negative for fever, chills, and weight loss, Eyes: Negative for injury, rn pain, redness, and discharge, Neck: Negative for injury, pain, and swelling, Cardiovascular: Negative for chest pain, palpitations, and edema, Respiratory: Negative for shortness of breath, cough, wheezing, and pleuritic chest pain, Abdomen/GI: Negative for abdominal pain, nausea, vomiting, diarrhea, and constipation, Back: Negative for injury and pain, MS/Extremity: Negative for injury and deformity, Skin: Negative for injury, rash, and discoloration, Neuro: Negative for headache, weakness, numbness, tingling, and seizure. Exam: 12:55 Constitutional: This is a well developed, well nourished patient who is sleepy but rn awakens easily to voice. Head/Face: Normocephalic, atraumatic. Eyes: Periorbital areas with no swelling, redness, or edema. ENT: dry MM Cardiovascular: Regular rate and rhythm. No pulse deficits. Respiratory: No increased work of breathing, no retractions or nasal flaring. Abdomen/GI: Soft, non-tender Skin: Warm, dry MS/ Extremity: No cyanosis. Neuro: Awake and alert, GCS 15 Vital Signs: 09:46 BP 172 / 93; Pulse 95; Resp 24; Temp 98.7; Pulse Ox 96% ; bp 12:00 BP 139 / 70; Pulse 88; Resp 13; Pulse Ox 95% ; bp 13:00 BP 152 / 86; Pulse 88; Resp 13; Pulse Ox 97% ; bp MDM: 09:52 Patient medically screened. rn 12:36 ED course: Pt with abnormal ECG and elevated troponin. Pt denies chest pain or sob. rn Complains only of itching and muscle aches. . 12:53 ED course: Consulted with Dr. Rodriguez regarding ECG changes and elevated troponin. Pt rn still without complaints of chest pain. Will come and see patient. . 12:54 Admission orders: after a detailed discussion of the patient's condition and case, the diffusion furnace operator orders are written by me. 13:03 ED course: Dr. Rodriguez here to evaluate patient. . rn 13:25 ED course: Dr rodriguez taking pt to laborer concrete paving. rn 11/25 09:57 Order name: CBC with Diff; Complete Time: 12:39 rn 11/25 09:57 Order name: Basic Metabolic Panel; Complete Time: 12:14 rn 11/25 10:39 Order name: BNP; Complete Time: 12:36 rn 11/25 10:39 Order name: Troponin High Sensitivity; Complete Time: 12:36 rn 11/25 12:53 Order name: Troponin High Sensitivity rn 11/25 13:26 Order name: COVID-19 SARS RT PCR (Document "Date of Onset" if Symptomatic) bd 11/25 09:57 Order name: EKG; Complete Time: 09:58 rn 11/25 09:57 Order name: EKG - Nurse/Tech; Complete Time: 10:33 rn 11/25 09:57 Order name: Cardiac monitoring; Complete Time: 10:33 rn 11/25 09:57 Order name: O2 Sat Monitoring; Complete Time: 10:33 rn 11/25 09:57 Order name: XRAY Chest (1 view); Complete Time: 12:14 rn 11/25 11:42 Order name: Labs - recollect needed: recollect cbc; Complete Time: 13:23 bd Administered Medications: 10:15 Drug: hydrOXYzine 25 mg Route: PO; bp 12:08 Follow up: Response: No adverse reaction bp 10:39 CANCELLED (Duplicate Order): Levophed (norepinephrine) (4 mg/250 mL D5W 4 mcg/min IV at rn calculated rate Per protocol; (final concentration is 16 microgram/mL) Disposition Summary: 11/25/21 12:55 Hospitalization Ordered Hospitalization Status: Inpatient Admission rn Provider: Giovani Clarke rn Location: Telemetry/MedSurg (Inpatient) rn Condition: Stable rn Problem: new rn Symptoms: have improved rn Bed/Room Type: Standard rn Room Assignment: rn Diagnosis - End stage renal disease rn - Subsequent non-ST elevation (NSTEMI) myocardial infarction rn - Acidosis rn Forms: - Medication Reconciliation Form rn - SBAR form rn Signatures: Dispatcher [employer] EDJil Kwon Roman, MD MD rn Peltier, Brian, RN RN bp Corrections: (The following items were deleted from the chart) 10:34 09:57 IV Saline Lock ordered. rn bp 10:39 10:39 Levophed (norepinephrine) (4 mg/250 mL D5W 4 mcg/min IV at calculated rate Per rn protocol; (final concentration is 16 microgram/mL) ordered. rn
[2021-11-25] MEDS ORDERED: LIDOCAINE 1% 20 ML MDV ONE (13:34)
[2021-11-25] MEDS ORDERED: HEPA 1000U/500MLS 2,000 UNIT/1,000 ML BAG IV ONE (13:34)
[2021-11-25] MEDS ORDERED: ATROPINE SULF 1 MG/10 ML SYR IV ONE ×2 (13:45)
[2021-11-25] MEDS ORDERED: NA CHLORIDE 0.9% 500 ML ONE (13:45)
[2021-11-25] MEDS ORDERED: TICAGRELOR 90 MG TABLET PO ONE (13:53)
[2021-11-25] MEDS ORDERED: ASPIRIN 325 MG TAB ONE (13:56)
[2021-11-25] MEDS ORDERED: HEPARIN 10,000 UNIT/10 ML VIAL IV ONE (13:59)
--- NOTE | 2021-11-25 16:09 | CON ---
Date of Consultation: 11/25/2021 Reason For Consultation: ST elevation on EKG. History Of Present Illness: This is a 46-year-old female with history of end-stage renal disease, on hemodialysis, hypertension, diabetes, diabetic neuropathy, dyslipidemia, stroke, profound vascular d isease, status post amputation of lower extremities, comes in because of shortness of breath. She mi ssed dialysis and she is itching all over. There is no specific chest pain; however, she is short of breath with orthopnea. EKG was done in the emergency room and showed ST elevation in the lateral le ads. Comparing to the old EKG, it is definitely a change. Past Medical History: As outlined above in HPI. Medications: Refer to reconciliation sheet for detailed list. Allergies: NO KNOWN DRUG ALLERGIES. Family History: No premature coronary artery disease or cancer. Social History: She does not smoke or drink. Does not use any drugs. Review of Systems: All systems reviewed and they were negative except for what mentioned in HPI. Physical Examination: Vital Signs: Reviewed. Head and Neck: Pupils are equal, reactive to light. Intact eye movements. Positive JVD. No cervic al lymphadenopathy. Neck is supple. Thyroid is not enlarged. Lungs: Clear to auscultation bilaterally. No rhonchi, rales, or crackles. No accessory muscle use. Heart: Regular rate and rhythm. No extra sounds. Abdomen: Soft, nontender. Bowel sounds positive. No organomegaly. No masses or hernia. No rigidi ty or rebound. Extremities: No clubbing, cyanosis. Skin: No rash noted. Neuro: Alert, awake, oriented x3. No acute focal deficits appreciated. Investigations: Hemoglobin 11.3, white blood cell count 6.2. Creatinine is 18. Troponin 410. Assessment And Plan: ST elevation on EKG suggestive of acute ST elevation myocardial infarction. It is a definite change in her electrocardiogram comparing to old ones. Troponin is positive and the p atient has shortness of breath. She has history of diabetes, long-standing with diabetic neuropathy. We will take the patient immediately to the cardiac cath rn and obtain an urgent coronary angiogram to fur ther evaluate and treat accordingly. Please obtain echocardiogram and continue aspirin and further r ecommendations after the angiogram. SR/MODL Voice ID: [id number] Report ID: [id number]
--- NOTE | 2021-11-25 17:09 | OP ---
Date of Procedure: 11/25/2021 Surgeon: LIEN SHAH Procedure Performed: Overall selective coronary angiogram. Indication: Non-ST elevation myocardial infarction. Access: Right femoral artery 6-Ethiopian closed with StarClose. Complications: None. Bleeding: Less than 10 mL. Description Of Procedure: After risks, benefits, and alternatives were explained, the patient agreed to the procedure and signed informed consent. The patient was brought into the cardiac catheterization laboratory. No sedation was given. We accessed the right femoral artery using micropuncture kit, fluoroscopy and ultrasound, and placed a 6-Ethiopian [place] sheath and took a 6- Ethiopian JL4 catheter into the aortic root, engaged left main, took standard views and exchanged for 6-Ethiopian JR4 catheter, engaged the RCA, took standard views and then removed the catheter and sheath was removed and StarClose was used for closure with good hemostasis. 45mins total conscious sedation Findings: 1. Left main; large, normal. 2. LAD; moderate size, normal. Diagonal 1 branch has ostial 30% stenosis. Otherwise, no significant disease. The rest of the LAD with luminal irregularities. 3. Left circumflex is very large and dominant. OM branch 1 has ostial 20%. 4. RCA; small and dominant with luminal irregularities. Conclusion: Mild nonobstructive coronary artery disease and elevated troponins due to demand. Recommendation: Risk factor modification, dialysis in-house, and to be placed on high-dose statin and baby aspirin post-discharge. SR/MODL Voice ID: [id number] Report ID: [id number] DAYANARA
--- NOTE | 2021-11-25 17:32 | P.HP ---
Certification for Inpatient Patient admitted to: Observation With expected LOS: <2 Midnights Practitioner: I am a practitioner with admitting privileges, knowledge of patient current condition, hospital course, and medical plan of care. Services: Services provided to patient in accordance with Admission requirements found in Title 42 Section 412.3 of the Code of Federal Regulations Patient History Date of Service: 11/25/21 Reason for admission: Generalized body pain History of Present Illness: 46-year-old woman with a history of diabetes mellitus, end-stage renal disease on hemodialysis, right BKA [facility] emergency department because patient refused to go for dialysis and was complaining of pain all over. Work-up in the emergency department revealed elevated troponin and what appeared to be ST elevation on the EKG. Cardiology was consulted who performed emergent cardiac catheterization. Patient found to have mild coronary artery disease. She is placed in observation for monitoring after cardiac catheterization. Allergies No Known Allergies Allergy (Verified 05/09/21 01:12) Home Medications: Aspirin 81 mg PO DAILY 12/23/19 Clopidogrel Bisulfate [Plavix*] 75 mg PO DAILY tablet 05/09/21 Codeine/APAP [Tylenol #3*] 1 tab PO Q8HP PRN 05/09/21 Docusate Sodium [Stool Softener] 200 mg PO DAILY 05/09/21 Duloxetine HCl [Cymbalta] 60 mg PO BID 05/09/21 Folic Acid 1 mg PO DAILY 05/09/21 Glucagon,Human Recombinant [Glucagon Emergency Kit] 1 mg IM PRN PRN 05/09/21 Hydroxyzine Hcl [Atarax] 10 mg PO TID PRN 05/09/21 Insulin Aspart See Protocol SQ ACHS 05/09/21 Insulin Detemir [Levemir] 10 units SQ DAILY 05/09/21 Levothyroxine [Synthroid*] 50 mcg PO [id number] 05/09/21 Melatonin 10 mg PO BEDTIME 05/09/21 Meloxicam [Mobic*] 7.5 mg PO 1800 05/09/21 Polyethyl Gly 3350 [Glycolax*] 17 gm PO TID 05/09/21 Sertraline [Zoloft*] 100 mg PO DAILY tab 05/09/21 Sevelamer Carbonate 2 packet PO TIDWM 05/09/21 cloNIDine HCL [Clonidine HCl] 0.1 mg PO BEDTIME 05/09/21 Ascorbic Acid [Vitamin C*] 500 mg PO DAILY 07/25/21 Atorvastatin Calcium [Lipitor*] 20 mg PO BEDTIME 07/25/21 Folic Acid/Vit B Complex and C [Libby-Guillermo Tablet] 0.8 mg PO DAILY 07/25/21 Gabapentin [Neurontin*] 400 mg PO M,W,F 07/25/21 Lactulose 20 gm PO DAILY PRN 07/25/21 Mirtazapine [Remeron] 30 mg PO BEDTIME 07/25/21 Patiromer Calcium Sorbitex [Veltassa] 8.4 gm PO DAILY 07/25/21 Zinc Sulfate [Zinc Sulfate*] 220 mg PO DAILY 07/25/21 Calcium Acetate [Phoslo] 667 mg PO AC #90 capsule 11/07/21 Midodrine HCl [Proamatine*] 5 mg PO EVERY HD PRN #30 tab 11/07/21 Na Bicarb Tab [Sodium Bicarb 325 MG] 650 mg PO BID #60 tab 11/07/21 - Past Medical/Surgical History Diabetic: Yes -: ESRD -: HTN -: Thyroid cancer -: Neuropathy -: Blind both eyes -: DM -: Neuropathy -: GERD -: ESRD -: hyperlipidemia -: CVA x3 -: Cholecystectomy -: Thyroidectomy -: Multiple eye surgeries -: -: HD graph left arm -: Right BKA -: right BKA Psychosocial/ Personal History: The patient is . She has 1 child. She is disabled. - Family History Father Notes: thyroid problems Brother -: Hypertension - Social History Alcohol use: No CD- Drugs: No Caffeine use: No Review of Systems Other: Except as documented, all other systems reviewed and negative. Physical Examination - Vital Signs Temperature: 98.7 F Blood Pressure: 152/86 Pulse: 88 Respirations: 13 - Physical Exam General: Alert, In no apparent distress HEENT: Mucous membr. moist/pink Neck: Supple, JVD not distended Respiratory: Clear to auscultation bilaterally, Normal air movement Cardiovascular: No edema, Regular rate/rhythm, Normal S1 S2 Capillary refill: <2 Seconds Gastrointestinal: Normal bowel sounds, Soft and benign, Non-distended, No tenderness Musculoskeletal: No swelling, Other (Right BKA) Integumentary: No rashes Neurological: Normal speech, Cranial nerves 3-12 intact Lymphatics: No axilla or inguinal lymphadenopathy - Studies Laboratory Data (last 24 hrs) 11/25/21 12:25: WBC 6.2, Hgb 11.3 L, Hct 34.4 L, Plt Count 210 11/25/21 11:23: Sodium 134 L, Potassium 4.4, BUN 113 H, Creatinine 18.50 H*, Glucose 260 H Assessment and Plan - Problems (Diagnosis) (1) NSTEMI (non-ST elevated myocardial infarction) Current Visit: Yes Status: Acute (2) Diabetes mellitus type 2 in nonobese Current Visit: No Status: Acute (3) End-stage renal disease on hemodialysis Current Visit: No Status: Chronic - Plan Place patient under observation. Status post cardiac catheterization Patient with mild obstructive coronary artery disease. Aspirin, Plavix Check lipid profile Beta-tierney Continue home antihypertensive. Nephrology consult for hemodialysis. Insulin sliding scale for glucose management. Resume home dose long-acting insulin. IV fentanyl as needed for pain. - Advance Directives Does patient have a Living Will: No Does patient have a Durable POA for Healthcare: No
[2021-11-25] MEDS ORDERED: ACETAMINOPHEN 500 MG TAB PO PRN (17:37)
[2021-11-25] MEDS ORDERED: FENTANYL CITR 100 MCG/2 ML IV PRN (17:37)
[2021-11-25 18:40] VITALS: BMI 28.3
[2021-11-25] MEDS: cloNIDine HCL 0.1 MG TAB PO SCH (21:00)
[2021-11-25] MEDS: INSULIN -REGULAR HUMAN 50 UNIT/0.5 ML ML SQ SCH (21:00)
[2021-11-25 21:56] LABS: Potassium 4.3 mmol/L (3.5-5.1)
[2021-11-26] MEDS: HEPARIN 5000 UNIT/ML 1 ML VIAL SQ SCH ×3 (01:00→17:00)
[2021-11-26] MEDS: LEVOTHYROXINE SOD 0.05 MG TABLET PO SCH (06:00)
[2021-11-26 06:23] LABS: Absolute Lymphocytes (CBC) 0.8 K/uL (0.7-4.9); Hematocrit 32.2 % (36.0-45.0); Lymphocytes % 13.9 % (15.3-44.8); MPV 8.3 fL (7.6-11.3); RBC Red Blood Cell Count 3.45 M/uL (3.86-4.86)
[2021-11-26 06:46] LABS: Potassium 4.4 mmol/L (3.5-5.1)
[2021-11-26] MEDS: INSULIN GLARGINE 100 UNIT/ML SQ SCH (09:00)
[2021-11-26] MEDS ORDERED: HOME MED 1 EA UNK (Insulin Detemir [Levemir] 100 UNIT/1 ML Ml) SQ SCH (09:00)
[2021-11-26] MEDS: CLOPIDOGREL 75 MG TABLET PO SCH (09:03)
[2021-11-26] MEDS: ASPIRIN EC 81 MG TAB PO SCH (09:03)
[2021-11-26] MEDS: INSULIN -REGULAR HUMAN 50 UNIT/0.5 ML ML SQ SCH ×4 (09:05→21:00)
--- NOTE | 2021-11-26 10:03 | PN ---
Date of Progress Note: 11/26/2021 Ms. Woo underwent a heart catheterization by Dr. Rodriguez yesterday after she came in with a non-STEM I. She has a history of end-stage renal disease on dialysis. Today, she has no cardiac complaint. Catheterization showed mild coronary artery disease. Catheterization entry site is intact without an y hematoma. Good distal pulses. She should be on her home medication plus aspirin and statin. She can go home whenever it is okay with her admitting physician. SHERIF/KERI Voice ID: [id number] Report ID: [id number]
[2021-11-26] MEDS ORDERED: ONDANSETRON 4 MG/2 ML VIAL IV PRN ×2 (11:57→12:35)
[2021-11-26] MEDS ORDERED: EPOETIN 4,000 UNIT/ML VIAL IV SCH (14:30)
--- NOTE | 2021-11-26 15:03 | CON ---
Date of Consultation: 11/26/2021 History Of Present Illness: The patient was admitted to the hospital with upper pulmonary respiratory distress. The patient used to be on dialysis. The patient was placed on hospice physical. Past Medical History: Includes; 1. Hypertension. 2. Hyperlipidemia. 3. Diabetes complicated with neuropathy, retinopathy, legally blind. 4. End-stage renal disease, on dialysis. 5. Secondary hyperparathyroidism. 6. Congestive heart failure. The patient came to the hospital with shortness of breath, found to be over volume. We took the patient for urgent dialysis. We are planning to challenge the patient. Past Surgical History: Include PermCath placement. Allergies: NO KNOWN DRUGS ALLERGY. Family History: Positive for diabetes. Social History: Lives in [facility]. Denied smoking. Denied drinking. Denied drug abuse. Home Medications: Include; 1. Clonidine. 2. Levothyroxine. 3. Insulin. 4. Plavix. 5. Renvela. 6. Zoloft. 7. Mirtazapine. 8. Midodrine. 9. Mobic. 10. Atorvastatin. 11. Vitamin C. Current medications in the hospital include; 1. Clonidine. 2. Plavix. 3. Insulin. 4. Levothyroxine. Review of Systems: Head and Neck: No red eye. No ear pain. GI: No nausea. No vomiting. : No polyuria. No dysuria. No hematuria. Laboratory Technology Teacher: No vaginal discharge. Respiratory: Has shortness of breath. Cardiovascular: Has chest tightness. Endocrine: No polydipsia. Skin: No rash. Neuro: Legally blind, bed-bound. Musculoskeletal: Generalized fatigue. Physical Examination: Vital Signs: Blood pressure 164/85, pulse of 89, afebrile. Chest: Crackles bilateral. Heart: S1, S2. Systolic murmur. Abdomen: Soft, nontender. Extremities: Trace edema. Neuro: Legally blind. Laboratory Data: WBC 5.6, H and H 10.8/32.3. Sodium 133, potassium 4.4, bicarb 19, BUN 114, creatinine 19.3, calcium 8.4. Assessment And Plan: 1. End-stage renal disease, missed dialysis, uremic, over volume with hyponatremia. We will do dialysis today and tomorrow. Then, we will resume dialysis as by the patient's wishes. Agree to go back on dialysis. 2. Hypertension, controlled. We will follow up blood pressure after dialysis. 3. Hyponatremia, going to be corrected with dialysis. 4. Uremia, going to be corrected with dialysis. 5. Anemia of chronic kidney disease. Resume LINWOOD. 6. Deconditioning as by primary. Time spent examining the patient [id number], discussing the case with the patient and the sister by bedside, discussing the case with the sales team manager including dialysis nurse from her unit and the nursing staff in the unit, discussing the case with the hospitalist and Cardiology 45 minutes. DEBBIE Voice ID: [id number] Report ID: [id number] DAYANARA
--- NOTE | 2021-11-26 18:06 | P.PN ---
Date of Service: 11/26/21 Subjective: +nausea, generalized discomfort no worsening symptoms revoked hospice, states she is scared of dying. wants full code and continue HD for now ROS: 10 point ROS as noted above, otherwise negative Physical exam General: Alert, NAD HEENT: blind, moist mucous membranes Respiratory: Clear to auscultation bilaterally, Normal air movement Cardiovascular: No edema, Regular rate/rhythm, Normal S1 S2 Gastrointestinal: Soft and benign, Non-distended, No tenderness Musculoskeletal: Right BKA, chronic Neurological: Normal speech, moves extremities Problem List NSTEMI DM2 ESRD on HD PVD s/p BKA Status post cardiac catheterization on 11/25 Patient with mild obstructive coronary artery disease. Aspirin, Plavix, Beta-tierney Continue home antihypertensive Nephrology consulted for hemodialysis Resume insulin IV fentanyl as needed for pain. revoked hospice likely will need HD today and tomorrow Code: full Dispo: back to SNF, likely tomorrow after HD, pending further improvement Time Spent Managing Pts Care (In Minutes): 35
[2021-11-26] MEDS: cloNIDine HCL 0.1 MG TAB PO SCH (21:00)
[2021-11-27] MEDS: HEPARIN 5000 UNIT/ML 1 ML VIAL SQ SCH ×3 (00:55→16:22)
[2021-11-27] MEDS: LEVOTHYROXINE SOD 0.05 MG TABLET PO SCH (06:00)
[2021-11-27 07:00] LABS: AST/SGOT 12 U/L (15-37); Albumin 2.5 g/dL (3.4-5.0); Alkaline Phosphatase 123 U/L (45-117); BUN Blood Urea Nitrogen 46 mg/dL (7-18); Bicarbonate 17 mmol/L (21-32); Bilirubin Total 0.6 mg/dL (0.2-1.0); Glucose Level 151 mg/dL (74-106); Magnesium 2.3 mg/dL (1.8-2.4); Phosphorus 5.2 mg/dL (2.5-4.9); Potassium 3.8 mmol/L (3.5-5.1); Protein, Total 7.3 g/dL (6.4-8.2); Sodium Level 136 mmol/L (136-145)
[2021-11-27 07:01] LABS: ALT/SGPT < 10 U/L (12-78)
[2021-11-27] MEDS: INSULIN -REGULAR HUMAN 50 UNIT/0.5 ML ML SQ SCH ×4 (07:30→21:00)
[2021-11-27 07:39] LABS: MPV 8.9 fL (7.6-11.3); RBC Red Blood Cell Count 3.58 M/uL (3.86-4.86)
[2021-11-27] MEDS: ASPIRIN EC 81 MG TAB PO SCH (07:47)
[2021-11-27] MEDS: INSULIN GLARGINE 100 UNIT/ML SQ SCH (07:47)
[2021-11-27] MEDS: CLOPIDOGREL 75 MG TABLET PO SCH (07:47)
[2021-11-27 09:43] LABS: Platelet Estimate ADEQ
[2021-11-27 09:45] LABS: Blood Morphology Comment NOT SEEN (NOT SEEN)
--- NOTE | 2021-11-27 11:05 | EKG ---
Test Date: 2021-11-25 Test Time: 11:06:20 Leather Dresser: MB MEASUREMENT RESULTS: Intervals: Rate: 87 VA: 138 QRSD: 92 QT: 396 QTc: 476 [place]: P: 89 VA: 138 QRS: 56 T: 8 INTERPRETIVE STATEMENTS: Age and gender specific ECG analysis Normal sinus rhythm ST elevation, consider lateral injury or acute infarct ACUTE [place] Abnormal ECG Compared to ECG 11/25/2021 10:21:23 No significant changes Electronically Signed On 11-27-21 10:58:16 CDT by Elder Tejeda
--- NOTE | 2021-11-27 11:05 | EKG ---
Test Date: 2021-11-25 Test Time: 12:48:58 Printed Circuit Boards Stripper Etcher: WILBERT MEASUREMENT RESULTS: Intervals: Rate: 86 [place]: 138 QRSD: 96 QT: 404 QTc: 483 [place]: P: 88 [place]: 138 QRS: 68 T: -1 INTERPRETIVE STATEMENTS: Age and gender specific ECG analysis Normal sinus rhythm ST elevation, consider inferolateral injury or acute infarct Prolonged QT ACUTE [place] Abnormal ECG Compared to ECG 11/25/2021 11:06:20 Prolonged QT interval now present ST (T wave) deviation still present Myocardial infarct finding still present Electronically Signed On 11-27-21 10:58:09 CDT by Elder Tejeda
--- NOTE | 2021-11-27 11:06 | EKG ---
Test Date: 2021-11-25 Test Time: 10:21:23 Consumer Marketing Analyst: MB MEASUREMENT RESULTS: Intervals: Rate: 88 [place]: 138 QRSD: 94 QT: 392 QTc: 474 [place]: P: 89 [place]: 138 QRS: 59 T: 1 INTERPRETIVE STATEMENTS: Age and gender specific ECG analysis Normal sinus rhythm ST elevation, consider anterolateral injury or acute infarct ACUTE [place] Abnormal ECG Compared to ECG 11/05/2021 14:38:57 ST (T wave) deviation now present Atrial premature complex(es) no longer present Aberrant conduction of supraventricular beat(s) no longer present Myocardial infarct finding still present Electronically Signed On 11-27-21 10:58:18 CDT by Elder Tejeda
--- NOTE | 2021-11-27 15:57 | PN ---
Date of Progress Note: 11/27/2021 Subjective: The patient was admitted with over volume and hyponatremia. The patient received dialys is yesterday, managed to remove 3.5 L. The patient still severely edematous. Physical Examination: Vital Signs: When I saw the patient; blood pressure 183/79, pulse of 92, afebrile. Chest: Crackles bilateral. Heart: S1, S2. Systolic murmur. Abdomen: Soft, nontender. Extremity: Right below-knee amputation, left +1 edema. Neuro: Legally blind. No focality. Laboratory Data: WBC 8.4, H and H 11.4/34. Sodium 136, potassium 3.8, bicarb 17, chloride 99, BUN 4 6, creatinine 10.3, calcium 8.8, phosphorus 5.2, magnesium 2.3. Current Medications: The patient on; 1.Aspirin. 2.Heparin. 3.Plavix. 4.Epogen 4000. 5.Clonidine 0.1 at bedtime. 6.Zofran. 7.Insulin. 8.Levothyroxine 50 mcg. 9.Fentanyl. Assessment And Plan: 1.End-stage renal disease with over volume. I am going to do another session of dialysis today and we will challenge the patient. 2.Over volume. The patient is going to be challenged today. 3.Hypokalemia. The patient is going to be dialyzed on 3K bath. 4.Hyponatremia secondary to dilutional, going to be corrected on dialysis. 5.Uremic symptoms, recovered, back to baseline, response to dialysis. 6.Acidosis secondary to renal failure, going to be corrected to on dialysis. No need for bicarb supplement. 7.Diabetes as by primary. CASSIE/MODL Voice ID: [id number] Report ID: [id number]
[2021-11-27] MEDS ORDERED: LACTULOSE 20 GM/30 ML UCUP PO PRN (17:23)
--- NOTE | 2021-11-27 17:30 | P.PN ---
Date of Service: 11/27/21 Subjective: +nausea, generalized discomfort states not feeling well, tired initially refused dialysis but then agreeable ROS: 10 point ROS as noted above, otherwise negative - difficult to fully obtain Physical exam General: Alert, arousable, appears uncomfortable HEENT: blind, moist mucous membranes Respiratory: Clear to auscultation bilaterally, Normal air movement Cardiovascular: No edema, Regular rate/rhythm, Normal S1 S2 Gastrointestinal: Soft, Non-distended, No tenderness Musculoskeletal: Right BKA, chronic Neurological: Normal speech, moves extremities, blind Problem List NSTEMI DM2 ESRD on HD Depression PVD s/p BKA chronic blindness s/p cardiac catheterization on 11/25 Patient with mild obstructive coronary artery disease. no intervention needed/done Aspirin, Plavix, Beta-tierney Continue home antihypertensive Nephrology consulted for hemodialysis IV fentanyl as needed for pain. revoked hospice HD again today restart anti-depressants / other chronic medications patient still with confusion, revoked hospice will need further improvement/stability, review decisions prior to dc back to SNF Code: full Dispo: back to SNF, ~1-2 days Time Spent Managing Pts Care (In Minutes): 35
[2021-11-27] MEDS ORDERED: ATORVASTATIN 20 MG TAB PO SCH (21:00)
[2021-11-27] MEDS ORDERED: MIRTAZAPINE 30 MG PO SCH (21:00)
[2021-11-27] MEDS ORDERED: MIRTAZAPINE 15 MG TAB PO SCH (21:00)
[2021-11-27] MEDS ORDERED: HOME MED 1 EA UNK (Duloxetine Hcl [Cymbalta] 60 MG Capsule.Dr) PO SCH (21:00)
[2021-11-27] MEDS: cloNIDine HCL 0.1 MG TAB PO SCH (21:38)
[2021-11-27] MEDS: DULOXETINE 30 MG CAP PO SCH (21:38)
[2021-11-28] MEDS: HEPARIN 5000 UNIT/ML 1 ML VIAL SQ SCH ×2 (01:00→08:07)
[2021-11-28 01:50] VITALS: O2SAT 97
[2021-11-28] MEDS: LEVOTHYROXINE SOD 0.05 MG TABLET PO SCH (05:32)
[2021-11-28 06:02] LABS: Hematocrit 36.5 % (36.0-45.0); MPV 8.6 fL (7.6-11.3); RBC Red Blood Cell Count 3.78 M/uL (3.86-4.86)
[2021-11-28 06:22] LABS: AST/SGOT 9 U/L (15-37); Albumin 2.4 g/dL (3.4-5.0); Alkaline Phosphatase 115 U/L (45-117); BUN Blood Urea Nitrogen 26 mg/dL (7-18); Bicarbonate 19 mmol/L (21-32); Bilirubin Total 0.5 mg/dL (0.2-1.0); Glucose Level 169 mg/dL (74-106); Magnesium 2.2 mg/dL (1.8-2.4); Potassium 3.6 mmol/L (3.5-5.1); Protein, Total 7.3 g/dL (6.4-8.2); Sodium Level 137 mmol/L (136-145)
[2021-11-28 06:23] LABS: ALT/SGPT < 10 U/L (12-78)
--- NOTE | 2021-11-28 06:40 | P.PN ---
Date of Service: 11/28/21 Subjective: ROS: 10 point ROS as noted above, otherwise negative - difficult to fully obtain Physical exam General: Alert, arousable, appears uncomfortable HEENT: blind, moist mucous membranes Respiratory: Clear to auscultation bilaterally, Normal air movement Cardiovascular: No edema, Regular rate/rhythm, Normal S1 S2 Gastrointestinal: Soft, Non-distended, No tenderness Musculoskeletal: Right BKA, chronic Neurological: Normal speech, moves extremities, blind Problem List NSTEMI DM2 ESRD on HD Depression PVD s/p BKA chronic blindness s/p cardiac catheterization on 11/25 Patient with mild obstructive coronary artery disease. no intervention needed/done Aspirin, Plavix, Beta-tierney Continue home antihypertensive Nephrology consulted for hemodialysis IV fentanyl as needed for pain. revoked hospice HD again today restart anti-depressants / other chronic medications patient still with confusion, revoked hospice will need further improvement/stability, review decisions prior to dc back to [facility] Code: full Dispo: back to SNF, ~1-2 days Time Spent Managing Pts Care (In Minutes): 35
[2021-11-28] MEDS: INSULIN -REGULAR HUMAN 50 UNIT/0.5 ML ML SQ SCH ×2 (07:30→11:30)
[2021-11-28] MEDS: INSULIN GLARGINE 100 UNIT/ML SQ SCH (09:00)
[2021-11-28] MEDS ORDERED: DOCUSATE NA 100 MG CAP PO SCH (09:00)
[2021-11-28] MEDS: CLOPIDOGREL 75 MG TABLET PO SCH (09:00)
[2021-11-28] MEDS ORDERED: ASPIRIN 81 MG CHEWABLE TABLET PO SCH (09:00)
[2021-11-28] MEDS: DULOXETINE 30 MG CAP PO SCH (09:00)
[2021-11-28] MEDS ORDERED: SERTRALINE HCL 100 MG TAB PO SCH (09:00)
[2021-11-28 12:00] VITALS: BP 163/71; TEMP 97.4
--- NOTE | 2021-11-28 13:15 | P.DS ---
Admission Date: 11/26/21 Discharge Date: 11/28/21 Disposition: TRANSFER TO CORRECTION Reason for Admission: Generalized body pain Procedures: Problem List NSTEMI DM2 ESRD on HD Depression PVD s/p BKA chronic blindness Brief History of Present Illness: 46-year-old woman with a history of diabetes mellitus, end-stage renal disease on hemodialysis, right BKA was transferred from the [facility] to the emergency department because patient refused to go for dialysis and was complaining of pain all over. Work-up in the emergency department revealed elevated troponin and what appeared to be ST elevation on the EKG. Cardiology was consulted who performed emergent cardiac catheterization. Patient found to have mild coronary artery disease. She is placed in observation for monitoring after cardiac catheterization. Hospital Course: underwent cardiac catheterization on 11/25 Patient with mild obstructive coronary artery disease. no intervention needed/done Cardiology recommended continue aspirin, Plavix, added Beta-tierney Continued home antihypertensives Nephrology was consulted, patient underwent hemodialysis on 11/26 and 11/27 Patient states she revoked hospice, wanted to continue on dialysis, however at times would refuse dialysis and cut it short After cardiac catheterization, she reported feeling nauseous and not feeling well. This improved over the following 2 days, with hemodialysis She was deemed stable for discharge back to [facility]. To continue dialysis Thursday, Thursday, Thursday. Or at least, as often patient will allow. Patient is noncompliant and refuses medications at times. Patient does appear to understand role of medication and consequences, however chooses what she wants. Vital Signs/Physical Exam: Temp Pulse Resp BP Pulse Ox 97.4 F 75 16 163/71 H 100 11/28/21 11:59 11/28/21 11:59 11/28/21 11:59 11/28/21 11:59 11/28/21 11:59 Physical exam General: Alert, arousable, NAD HEENT: blind, moist mucous membranes Respiratory: Clear to auscultation bilaterally, Normal air movement Cardiovascular: No edema, Regular rate/rhythm, Normal S1 S2 Gastrointestinal: Soft, Non-distended, No tenderness Musculoskeletal: Right BKA, chronic Neurological: Normal speech, moves extremities, blind Laboratory Data at Discharge: WBC 5.1 K/uL (4.3-10.9) D 11/28/21 05:40 Hgb 12.0 g/dL (12.0-15.0) 11/28/21 05:40 Hct 36.5 % (36.0-45.0) 11/28/21 05:40 Plt Count 194 K/uL (152-406) 11/28/21 05:40 Sodium 137 mmol/L (136-145) 11/28/21 05:40 Potassium 3.6 mmol/L (3.5-5.1) 11/28/21 05:40 BUN 26 mg/dL (7-18) H D 11/28/21 05:40 Creatinine 7.04 mg/dL (0.55-1.3) H* D 11/28/21 05:40 Glucose 169 mg/dL (74-106) H 11/28/21 05:40 Phosphorus 5.2 mg/dL (2.5-4.9) H 11/27/21 05:55 Magnesium 2.2 mg/dL (1.8-2.4) 11/28/21 05:40 Total Bilirubin 0.5 mg/dL (0.2-1.0) 11/28/21 05:40 AST 9 U/L (15-37) L 11/28/21 05:40 ALT < 10 U/L (12-78) L 11/28/21 05:40 Alkaline Phosphatase 115 U/L (45-117) 11/28/21 05:40 Triglycerides 104 mg/dL (<150) 11/25/21 18:24 Cholesterol 127 mg/dL (<200) 11/25/21 18:24 HDL Cholesterol 43 mg/dL (40-60) 11/25/21 18:24 Cholesterol/HDL Ratio 2.95 11/25/21 18:24 Home Medications: Aspirin 81 mg PO DAILY 12/23/19 Clopidogrel Bisulfate [Plavix*] 75 mg PO DAILY tablet 05/09/21 Codeine/APAP [Tylenol #3*] 1 tab PO Q8HP PRN 05/09/21 Docusate Sodium [Stool Softener] 200 mg PO DAILY 05/09/21 Duloxetine HCl [Cymbalta] 60 mg PO BID 05/09/21 Insulin Detemir [Levemir] 10 units SQ DAILY 05/09/21 Levothyroxine [Synthroid*] 50 mcg PO [id number] 05/09/21 Melatonin 10 mg PO BEDTIME 05/09/21 Polyethyl Gly 3350 [Glycolax*] 17 gm PO TID 05/09/21 Sertraline [Zoloft*] 100 mg PO DAILY tab 05/09/21 Sevelamer Carbonate 2 packet PO TIDWM 05/09/21 cloNIDine HCL [Clonidine HCl] 0.1 mg PO BEDTIME 05/09/21 Ascorbic Acid [Vitamin C*] 500 mg PO DAILY 07/25/21 Atorvastatin Calcium [Lipitor*] 20 mg PO BEDTIME 07/25/21 Folic Acid/Vit B Complex and C [Libby-Guillermo Tablet] 0.8 mg PO DAILY 07/25/21 Gabapentin [Neurontin*] 400 mg PO M,W,F 07/25/21 Lactulose 20 gm PO DAILY PRN 07/25/21 Mirtazapine [Remeron] 30 mg PO BEDTIME 07/25/21 Patiromer Calcium Sorbitex [Veltassa] 8.4 gm PO DAILY 07/25/21 Zinc Sulfate [Zinc Sulfate*] 220 mg PO DAILY 07/25/21 Calcium Acetate [Phoslo] 667 mg PO AC #90 capsule 11/07/21 Midodrine HCl [Proamatine*] 5 mg PO EVERY HD PRN #30 tab 11/07/21 Na Bicarb Tab [Sodium Bicarb 325 MG Tab*] 650 mg PO BID #60 tab 11/07/21 Metoprolol Tartrate [Lopressor*] 0.5 tab PO BID 30 Days #30 tab 11/28/21 New Medications: Metoprolol Tartrate [Lopressor*] 0.5 tab PO BID 30 Days #30 tab Followup: Kirsten Baez MD [Primary Care Provider] - Time spent managing pt's care (in minutes): 45
--- NOTE | 2021-11-28 15:20 | PN ---
Date of Progress Note: 11/28/2021 Subjective: The patient was admitted with over volume, altered mental status. The patient had dialysis yesterday, got her treatment after 1.5 hours. The patient apparently revoked her hospice also. Physical Examination: Vital Signs: Blood pressure 163/72, pulse of 82, afebrile. Chest: Clear to auscultation. Heart: S1, S2. Systolic murmur. Abdomen: Soft, nontender. Extremity: Right below-knee amputation. Neurologic: Alert, sleepy. No focality. Laboratory Data: WBC 5.1, H and H 12/36.5. Sodium 137, potassium 3.6, bicarb 19, BUN 26, creatinine 7, calcium 8.8, magnesium 2.2, albumin 2.4, corrected calcium is 10. Current Medications: The patient on include Epogen 4000, Plavix, heparin, atorvastatin, clonidine 0.1 daily, mirtazapine, Zoloft, levothyroxine, fentanyl. Assessment And Plan: 1. End-stage renal disease. The patient revoked hospice. We will resume dialysis as Thursday, Thursday, Thursday. We will arrange for dialysis for tomorrow. 2. Hypertension. The patient's blood pressure controlled, not optimal. Given the history of diabetes, I am going to go ahead and start the patient on RUBEN inhibitor and we will follow up, plan to take off the clonidine. 3. Acidosis, non-anion gap metabolic acidosis secondary to renal failure, going to be corrected with dialysis. 4. Hypokalemia. We will dialyze the patient again on high potassium bath and we will follow up. 5. Over volume. The patient was dialyzed, currently normal volume. We will follow up. We will continue dialysis 3 times a week. 6. Foot infection. Continue Bactrim, dose appropriate. 7. Anemia of chronic kidney disease. Currently, hemoglobin above 11.5. I am going to hold the Epogen. 8. Altered mental status as by primary. Time spent examining the patient [id number] placing order reviewing the data lab and radiology discussing with the patient by bedside discussing with the staff including nursing and hospitalist 35 minutes DEBBIE Voice ID: [id number] Report ID: [id number] [facility]ryan
== END 2021-11-28 15:26 | DRG 280 ==
LOC: ER 09:09 → OBSVTOIN 17:06 → INTOOBSV 17:06 → 2ND 17:06 → OBSVTOIN 11-26 18:35
PROVIDERS: ADMIT Internal Medicine; ATTEND Internal Medicine
PROC: B211YZZ Fluoroscopy of Multiple Coronary Arteries using Other Contrast (ICD-10-PCS; principal; 2021-11-25)
PROC: 5A1D70Z Performance of Urinary Filtration, Intermittent, Less than 6 Hours Per Day (ICD-10-PCS; 2021-11-26)
DX: I21.4 Non-ST elevation (NSTEMI) myocardial infarction (principal); N18.6 End stage renal disease; I12.0 Hypertensive chronic kidney disease with stage 5 chronic kidney disease or end stage renal disease; E87.1 Hypo-osmolality and hyponatremia; E87.2 Acidosis; I25.10 Atherosclerotic heart disease of native coronary artery without angina pectoris; E11.22 Type 2 diabetes mellitus with diabetic chronic kidney disease; E11.40 Type 2 diabetes mellitus with diabetic neuropathy, unspecified; E11.319 Type 2 diabetes mellitus with unspecified diabetic retinopathy without macular edema; H54.8 Legal blindness, as defined in USA; K21.9 Gastro-esophageal reflux disease without esophagitis; E78.5 Hyperlipidemia, unspecified; Z91.14 Patient's other noncompliance with medication regimen; D63.1 Anemia in chronic kidney disease; I73.9 Peripheral vascular disease, unspecified; E87.6 Hypokalemia; F32.A Depression, unspecified; Z91.15 Patient's noncompliance with renal dialysis; Z99.2 Dependence on renal dialysis; Z86.73 Personal history of transient ischemic attack (TIA), and cerebral infarction without residual deficits; Z85.850 Personal history of malignant neoplasm of thyroid; Z89.511 Acquired absence of right leg below knee
CPT/HCPCS: 36415; 71045; 76937; 80048; 80053; 80061; 82947; 83735; 83880; 84100; 84484; 85025; 85027; 90935; 93005; 93454; 94760; 94762; 99284; C1893; G0378; J1644; J1815; J2405; J7040; Q5105; Q9966

== ENCOUNTER 2022-01-13 10:56 | Observation (INO) | payer OTHER ==
--- OUTSIDE RECORDS SUMMARY | 2022-01-13 11:02 | XMS REPORT | Continuity of Care Document ---
:1975 Author Organization [facility] t Address [address] [place] [address] Care Team Providers Name Role Phone Faiza Attending Clinician Unavailable DR DAVE Attending Clinician Unavailable YODIT Attending Clinician Unavailable Zhen Ibrahim Attending Clinician Unavailable GC_BAHC_Todd_J Attending Clinician Unavailable Chris Attending Clinician [phone] Bob Pena Attending Clinician [phone] GC_BAHC_[place]_M Attending Clinician Unavailable Isabel CRUZ Attending Clinician Unavailable Venkatesh REYNOSO Attending Clinician VENKATESH Attending Clinician Unavailable VIOLETA Attending Clinician Unavailable Cat Crabtree Attending Clinician Unavailable LYN EDWARDS Attending Clinician Unavailable DR DAVE Admitting Clinician Unavailable YODIT Admitting Clinician Unavailable Yuliana Linda Admitting Clinician Unavailable GC_BAHC_Todd_J Admitting Clinician Unavailable GC_BAHC_[place]_M Admitting Clinician Unavailable Graham SALINAS Admitting Clinician Unavailable Joe Crabtree Admitting Clinician Unavailable LYN EDWARDS Admitting Clinician Unavailable Payers Payer Name Policy Type Policy Number Effective Date Expiration Date S lenard UNITED MEDICARE HMO [id number] 2016 00:00:00 [facility] COMM STAR [id number] 2013 PLAN 00:00:00 [place]: [id number] 2007 [employer] 00:00:00 [facility] [id number] [facility] (MEDICARE - MEDICAID REPLACEMENT HMO) [facility] [id number] NEREIDA PADRON [id number] Problems Condition Condition Condition Status Onset Resolution Last Treating Co mments Source Name Details Category Date Date Treatment Clinician Date Cellulitis Cellulitis Disease Active 2019-[address] of second of second 0-02 [facility] toe of toe of 00:00: Medical right foot right foot 00 Ce nter Left sided Left sided Disease Active 2018-[address] numbness numbness 09[facility]15 [facility] ESRD on ESRD on Disease Active 2018-[address] [facility] dialysis dialysis 09-15 [facility] Center Nephrotic Finding Active 2017-09-04 Me moria syndrome 09-02 19:20:04 l 00:00: [place] Nephrotic 00 syndrome Active 09/02/2017 Finding 09/04/[address] [facility] Dyslipidem Finding Active 2017-09-04 M emoria ia 09-02 19:20:04 l 00:00: Nigel Dyslipidem 00 ia Active [address] [facility] Diarrhea Finding Active 2017-09-04 Mem oria 09-02 19:20:04 l Diarrhea 00:00: Joey n 00 Active 09/02/2017 Finding 09/04/[address] [facility] Diabetic Finding Active 2017-09-04 Mem oria gastropare 09-02 19:20:04 l sis Diabetic 00:00: Joey n gastropare 00 sis Active 09/02/2017 Finding 09/04/[address] [facility] Intractabl Finding Active 2017-09-04 M emoria e nausea 09-02 19:20:04 l and 00:00: Nigel vomiting Intractabl 00 e nausea and vomiting Active Finding 09/04/[address] [facility] Chest Finding Active 2016-082017-09-04 Memor ia pain, rule 2-21 19:20:04 l out acute Chest 00:00: Joey n myocardial pain, rule 00 infarction out acute myocardial infarction Active 08/06/2017 Finding 09/04/[address] [facility] TIA Finding Active 2016-082017-09-04 Memor ia (transient 10-07 19:20:04 l ischemic TIA 00:00: Nigel attack) (transient 00 ischemic attack) Active 08/06/2017 Finding 09/04/[address] 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 Hypothyroi Hypothyroi Disease Active [facility] dism dism 03-15 [facility] 00 Center Diabetes Diabetes Disease Active [facility] mellitus mellitus 03-15 [facility] Depression Depression Disease Active [facility] 30 [facility] Center Anxiety Anxiety Disease Active [facility] 03-15 [facility] Center GERD GERD Disease Active [facility] (gastroeso (gastroeso 03-15 [facility] phageal phageal 00:00: Medical reflux reflux 00 Center disease) disease) COPD COPD Disease Active [facility] (chronic (chronic 03-15 [facility] obstructiv obstructiv 00:00: Mt dical e e 00 Center pulmonary pulmonary disease) disease) Chronic Chronic Disease Active [facility] renal renal 30 [facility] disease disease 00:00: Medical 00 Center Hyperlipid Hyperlipid Disease Active [facility] emia emia 03-15 [facility] 00:[facility] Medical 00 Center History of History of Disease Active [facility] thyroid thyroid 03-15 [facility] cancer cancer 00:00: Medical 00 Center Blind Blind Disease Active [facility] Tobacco Tobacco Disease Active [facility] abuse abuse 03-15 [facility] 00[facility] 00 Center Diabetic Diabetic Disease Active [facility] t retinopath retinopath 03-15 [facility] y y 00:00: Medical 00 Center Diabetic Diabetic Disease Active [facility] nephropath nephropath 03-15 [facility] y y 00:00: Medical 00 Center Encounter Finding Active 2017-09-04 Me moria for 03-09 19:20:04 l rehabilita 00:00: Joey jimenez tion Encounter 00 for rehabilita tion Active 03/09/2017 Finding 09/04/[address] [facility] Cerebrovas Finding Active 2017-09-04 M emoria cular 03-09 19:20:04 l accident 00:00: Nigel (CVA) Cerebrovas 00 cular accident (CVA) Active 03/09/2017 Finding 09/04/[address] [facility] Depression Finding Active 2017-09-04 M emoria with 03-03 19:20:04 l anxiety 00:00: Nigel Depression 00 with anxiety Active 03/03/2017 Finding 09/04/[address] [facility] Diabetes Finding Active 2017-09-04 Mem oria mellitus 03-03 19:20:04 l Diabetes 00:00: Joey jimenez mellitus 00 Active 03/03/2017 Finding 09/04/[address] [facility] Hyperlipid Finding Active 2017-09-04 M emoria emia 03-03 19:20:04 l 00:00: Nigel Hyperlipid 00 emia Active 03/03/2017 Finding 09/04/[address] [facility] Chronic Finding Active 2017-09-04 Inderjit avila renal 03-03 19:20:04 l disease Chronic 00:00: Joey n renal 00 disease Active 03/03/2017 Finding 09/04/[address] [facility] Tobacco Finding Active 2017-09-04 Inderjit avila abuse 03-03 19:20:04 l Tobacco 00:00: Nigel abuse 00 Active 03/03/2017 Finding 09/04/[address] [facility] Weakness Finding Active 2017-09-04 Mem oria 03-03 19:20:04 l Weakness 00:00: Joey n 00 Active 03/03/2017 Finding 09/04/[address] [facility] Chronic Finding Active 2017-09-04 Inderjit avila obstructiv 03-03 19:20:04 l e Chronic 00:00: Nigel pulmonary obstructiv 00 disease e pulmonary disease Active 03/03/2017 Finding 09/04/[address] [facility] Gastroesop Finding Active 2017-09-04 M emoria hageal 03-03 19:20:04 l reflux 00:00: Nigel disease Gastroesop 00 hageal reflux disease Active 03/03/2017 Finding 09/04/[address] [facility] Hypertensi Finding Active 2017-09-04 M emoria on 03-03 19:20:04 l 00:00: [place] Hypertensi 00 on Active [address] [facility] SOB Finding Active 2017-09-04 Memor ia (shortness 3 19:20:04 l of breath) SOB 00:00: Joey n (shortness 00 of breath) Active 10/16/2016 Finding 09/04/[address] [facility] Chest pain Finding Active 2017-09-04 M emoria 3- 19:20:04 l Chest 00:00: Nigel pain 00 Active 10/16/2016 Finding 09/04/[address] [facility] UTI Finding Active 2017-09-04 Memor ia (urinary - 19:20:04 l tract UTI 00:00: Nigel infection) (urinary 00 tract infection) Active 10/08/2015 Finding 09/04/[address] [facility] Diabetes Finding Active 2017-09-04 Mem oria mellitus 2- 19:20:04 l type II, Diabetes 00:00: Herm guanako uncontroll mellitus 00 ed type II, uncontroll ed Active [address] [facility] Abdominal Finding Active 2017-09-04 Me moria pain 10-08 19:20:04 l 00:00: Nigel Abdominal 00 pain Active 10/08/2015 Finding 09/04/[address] [facility] Vomiting Finding Active 2017-09-04 Mem oria 10-08 19:20:04 l Vomiting 00:00: Joey n 00 Active 10/08/2015 Finding 09/04/[address] [facility] Hypokalemi Finding Active 2017-09-04 M emoria a 10-08 19:20:04 l 00:00: Nigel Hypokalemi 00 a Active 10/08/2015 Finding 09/04/[address] [facility] Proliferat Proliferat Disease Active Overview : Univers evonne evonne 3-30 Both ity of diabetic diabetic 00:00: [id number] Gee as retinopath retinopath 00 Diagnosis Medical y y Term Branch Manager Infrastructure Utility 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 3-22 ICD10 ity of mellitus mellitus 00:00: Diagnosis Gee as without without 00 Term Medical complicati complicati Manager Infrastructure Branch ons ons Utility Osteoarthr Finding Inactiv 2017-09-04 Memoria itis e 19:20:04 l Nigel Osteoarthr itis Inactive Finding 09/04/[address] [facility] Vomiting Finding Inactiv 2017-09-04 Me moria e 19:20:04 l Vomiting Joey n Inactive Finding 09/04/[address] [facility] Unstable Finding Active 2017-09-04 Mem oria angina 19:20:04 l Unstable Joey n angina Active Finding 09/04/[address] [facility] Bacterial Finding Active 2017-09-04 Me moria pneumonia 19:20:04 l [place] Bacterial pneumonia Active Finding 09/04/[address] [facility] DDD Finding Active 2017-09-04 Memor ia (degenerat 19:20:04 l evonne disc DDD Nigel disease) (degenerat evonne disc disease) Active Finding 09/04/2017 [facility] Obesity Finding Active 2017-09-04 Inderjit avila 19:20:04 l Obesity Nigel Active Finding 09/04/[facility] Chest pain Finding Inactiv 2017-09-04 Memoria e 19:20:04 l Chest [place] pain Inactive Finding 09/04/[address] [facility] Hypertensi Finding Inactiv 2017-09-04 Memoria ve e 19:20:04 l disorder, [place] systemic Hypertensi arterial ve disorder, systemic arterial Inactive Finding 09/04/[address] [facility] Diabetes Finding Inactiv 2017-09-04 Me moria mellitus e 19:20:04 l type 2 Diabetes Joey n mellitus type 2 Inactive Finding 09/04/[address] [facility] Hyperlipid Finding Inactiv 2017-09-04 Memoria emia e 19:20:04 l [place] Hyperlipid emia Inactive Finding 09/04/2017 [facility] Legal Finding Inactiv 2017-09-04 Inderjit avila blindness e 19:20:04 l Legal Nigel blindness Inactive Finding 09/04/2017 [facility] Luciot Dyspnea Finding Resolve 2017-0 2017-09-04 2017-09-04 Memoria d 7-18 19:20:04 19:20:04 l Dyspnea 00:00: [place] 00 Resolved 03/03/2017 Finding 09/04/2017 [facility] Allergies, Adverse Reactions, Alerts Allergy Allergy Status Severity Reaction(s) Onset Inactive Treating Comm ents Source Name Type Date Date Clinician Lisinopr Propensi Active Unknown - Uni vers [place] ty to See comments -18 it y of chloroth adverse 00:00: [place] iazide reaction [address] [place] [address] s Branch LISINOPR DRUG Active Unknown-Cmnt Un ruby IL-HYDRO 5-18 ity of CHLOROTH 00:00: [place] IAZIDE [address] [place] [address] No Known DA Active U 2019-0 [facility] Allergie 08-22 00:00: [address] No Known DA Active U 0 [facility] Allergie 08-22 00:00: [address] NO KNOWN Allergy Active [facility] ALLERGIE S NO KNOWN Drug Active Univers ALLERGIE Class ity of S [facility] Family History Family Member Diagnosis Comments Start Date Stop Date Source Natural daughter No Known Problem [facility] Natural father Hypertension [facility] Natural mother Diabetes [facility] Natural mother Hypertension [facility] Natural mother Kidney disease [facility] Social History Social Habit Start Date Stop Date Quantity Comments Source Exposure to Not sure [facility]-CoV-2 (event) [facility] History SDOH [facility] Alcohol Std Drinks Medica l Center History SDOH [facility] Alcohol Binge Medical Fidencio ter History SDOH [facility] Alcohol Comment Medical C enter Alcohol intake 2020-05-24 2020-05-[address] [facility] 00:00:00 00:00:00 non-drinker of Medical Ce nter alcohol (finding) Tobacco use and 2020-05-18 2020-05-[address] [facility] exposure 00:00:00 00:00:00 Medical Center History SDOH 2020-05-18 2020-05-[address] [facility] Alcohol Frequency 00:00:00 00:00:00 [facility] Cigarettes smoked 2020-05-18 2020-05-[address] [facility] current (pack per 00:00:00 00:00:00 Medical Center day) - Reported Cigarette 2020-05-18 2020-05-[address] [facility] pack-years 00:00:00 00:00:00 [facility] History of tobacco 2020-05-[address] [facility] use 00:00:00 [facility] Sex Assigned At [address] [facility] 00:00:00 00:00:00 [facility] Smoking Status Start Date Stop Date Source Never smoker [facility] Former smoker 2020-05-18 00:00:00 2020-05-18 00:00:[address] [facility] Social History [facility] Medications Ordered Filled Start Stop Current Ordering Indication Dosage Frequency Signature Comments Components Source Medication Medication Date Date Medication? Clinician (SIG) Name Name sevzac 2019-08- No 800mg Take [address] (RENVELA) 08-26 tablet [facility] 800 mg 00:00: 23:59 (800 mg Medical tablet 00 :00 total) by Center mouth 3 (three) times daily with meals. PARoxetine 2019-08 Yes 40mg QD Take [address] (PAXIL) 40 0-08 by mouth [facility] MG tablet 11:21: every Medical 49 morning. Center HYDROcodone 2019-08 Yes 1{tbl} Take [address] -acetaminop 0-08 tablet by Elsie lemons (NORCO 11:21: mouth Medica l 7.5-325) 49 every 6 Center 7.5-325 mg (six) per tablet hours as needed for Pain. ALPRAZolam 2019-08 Yes 1mg Take [address] (XANAX) 1 0-08 by mouth [facility] MG tablet 11:21: every Medical 49 night as Center needed for Anxiety. busPIRone 2019-08 Yes 10mg Q.[id number] Take [address] (BUSPAR) 10 0-08 [id number] by mouth 3 [facility] MG tablet 11:21: 3D (three) Medic al 49 times Center daily. esomeprazol 2019-08 Yes 40mg QD Take [address] e (NEXIUM) 0-08 by mouth [facility] 40 MG 11:21: daily. Medical capsule 49 Center fenofibrate 2019-08 Yes 48mg QD Take [address] (TRICOR) 48 0-08 by mouth Luke s MG tablet 11:21: daily. Medica l 49 Center levothyroxi 2019-08 Yes 150ug Take [address] ne 0-08 mcg by [facility] (SYNTHROID, 11:21: mouth Medic al LEVOTHROID) 49 Every Center 150 MCG morning on tablet an empty stomach. magnesium 2019-08 Yes 400mg QD Take [address] oxide 0-08 mg by [facility] (MAG-OX) 11:21: mouth Medical 400 mg 49 daily. Center tablet prednisoLON 2019-08 Yes 1[drp] [address] E acetate 0-08 needed. [facility]ukes (PRED 11:21: Medical FORTE) 1 % 49 Center ophthalmic suspension multivitami 2019-08 Yes 1{tbl} QD Take [address] n 0-08 tablet by [facility] (MULTIVITAM 11:21: mouth Medic al IN) per 49 daily. Center tablet metoclopram 2019-08 Yes 10mg Take [address] avni HCl 0-08 by mouth 4 [facility] (REGLAN) 10 11:21: (four) Medi ghassan MG tablet 49 times Center daily as needed for Nausea. erythromyci 2019-08 Yes 250mg Take [address] n base 0-08 mg by [facility] (E-MYCIN) 11:21: mouth Medical 250 MG 49 every 6 Center tablet (six) hours as needed. cyclobenzap 2018-08 Yes 2.5mg Q.[id number] Take 2.[address] rine 0-16 [id number] mg by [facility] (FLEXERIL) 00:00: 3D mouth 3 Medi ghassan 5 MG tablet 00 (three) Cente r times daily. DULoxetine 2018-08 Yes 30mg QD Take [address] (CYMBALTA) 0-16 by mouth [facility] 30 MG 00:00: daily. Medical capsule 00 Center famotidine 2018-08 Yes 20mg QD Take [address] (PEPCID) 20 0-16 by mouth Luke s MG tablet 00:00: daily. Medica l 00 Center furosemide 2018-08 Yes 80mg Q.5D Take [address] (LASIX) 40 0-16 by mouth 2 Elsie es MG tablet 00:00: (two) Medical 00 times Center daily. gabapentin 2018-08 Yes 100mg Take [address] (NEURONTIN) 0-16 mg by [facility] 100 MG 00:00: mouth Medical capsule 00 every Center Thursday, Thursday, Thursday. lisinopril 2018-08 Yes 20mg Q.5D Take [address] (PRINIVIL,Z 0-16 by mouth 2 Carolann kes ESTRIL) 20 00:00: (two) Medica l MG tablet 00 times Center daily. traMADol 2018-08 Yes 50mg Take [address] (ULTRAM) 50 0-16 by mouth Luke s mg tablet 00:00: daily as Medi ghassan 00 needed FOR Center PAIN. Amlodipine Yes Santana Quinn DAILY Memoria 1-19 l 00:00: 00 Hydrocodone 0 Yes Santana Quinn THREE Memoria Bit/Acetami 1-19 TIMES A l nophen 00:00: DAY PRN For Pain Levofloxaci Yes Santana Quinn DAILY Memoria n 1-19 l 00:00: [place] 00 Tramadol 2016-08 Yes Mohammad TWICE Inderjit avila Hcl 2-22 Carmine Chan DAILY PRN l 00:00: For Pain Nigel 00 Lisinopril 2017- Yes Mohammad DAILY Me moria 2-21 Carmine Chan l 00:00: Atorvastati 2016- Yes Mohammad AT BEDTIME Memoria n Calcium 2-21 Carmine Chan l 00:00: Ciprofloxac 2016- Yes Mohammad TWICE M emoria in Hcl 2-21 Carmine Chan DAILY l 00:00: Neomycin/Po 2016- Yes Mohammad TWICE M emoria lymyxin B 2-21 Carmine Chan DAILY l Sulf/Hc 00:00: Insulin 2016- Yes DAILY PRN Memor ia Glargine,Hu 2-20 For l m.Rec.Anlog 00:00: glucose Cyclosporin 2016- Yes DAILY PRN M emoria e 2-20 For l 00:00: Abdominal Cramps Prednisolon 2016- Yes DAILY PRN M emoria e Acetate 2-20 For Pain l 00:00: insulin 2017-0 Yes 50U QD Inject 50 [facility] glargine 8-04 Units [facility] (LANTUS) 00:00: subcutaneo Med ical 100 unit/mL 00 usly every Ce nter injection morning Use as directed . Metoprolol 2017-0 Yes Alvino TWICE Inderjit avila Tartrate 7-18 Prezas DAILY l 00:00: Gabapentin 2017-0 Yes TWICE Memori a 7-17 DAILY l 00:00: Hydrocodone 2016- Yes THREE Memor ia Bit/Acetami 7-17 TIMES A l nophen 00:00: DAY PRN For Pain Insulin 2016- Yes SEE Memoria Glargine,Hu 7-17 COMMENT l m.Rec.Anlog 00:00: Joey Esomeprazol 2017- Yes DAILY Memor ia e Mag 2-28 l Trihydrate 00:00: Fenofibrate 2017- Yes DAILY Memor ia 2-28 l 00:00: Levothyroxi 2017-0 Yes DAILY AT Me moria ne 2-28 0600 l 00:00: Losartan/Hy 2017-0 Yes DAILY Memor ia drochloroth 2-28 l iazide 00:00: Prednisol 2016- Yes NEEDED Mem oria Acet 1% 2-28 l Opth 00:00: Alprazolam 0 Yes DAILY PRN Me moria 2-28 For l 00:00: Anxiety Ondansetron Yes Q6H PRN Mem oria 2-28 For Nausea l 00:00: / Vomiting Metoclopram Yes Mohammad Q6H Me moria avni Hcl 2-23 Carmine Chan l 00:00: Hydrocodone Yes WITH MEALS Memoria Bit/Acetami 2-22 NEEDED l nophen 00:00: PRN For Pain Lisinopril/ 2012-08 Yes TWICE Memor ia Hydrochloro 2-06 DAILY l thiazide 00:00: Meloxicam 2012-08 Yes DAILY Memoria 2-06 l 00:00: Metoclopram 2012-08 Yes BEFORE Inderjit avila avni 2-06 MEALS AND l 00:00: AT BEDTIME PRED FORTE Yes 1 drop as Un ruby OPHTHALMIC 3-23 needed ity of 02:09: [address] PRED FORTE Yes 1 drop as Un ruby OPHTHALMIC 3-23 needed ity of 02:09: [address] PRED FORTE Yes 1 drop as Un ruby OPHTHALMIC 3-23 needed ity of 02:09: [address] ALLERGEN 2006- Yes 1 drop as Univ ers OTIC 3-08 needed ity of 00:19: [address] ALLERGEN Yes 1 drop as Univ ers OTIC 3-08 needed ity of 00:19: [address] Branch ALLERGEN 2006- Yes 1 drop as Univ ers OTIC 3-08 needed ity of 00:19: [address] ATROPINE 2006- Yes Use As DIR Uni vers (BULK) MISC 1-24 ity of 00:41: [address] ATROPINE Yes Use As DIR Uni vers (BULK) MISC 1-24 ity of 00:41: [address] ATROPINE 2006- Yes Use As DIR Uni vers (BULK) MISC 1-24 ity of 00:41: [address] PREDNISOLON 2005-08 Yes 0.05 mL Uni vers [...] 00:00: [place] ORAL TAB 00 Medical Branch Immunizations Ordered Immunization Filled Immunization Date Status Commen ts Source Name Name Influenza Adult 2013-07-23 Completed [facility] Vaccine 00:00:00 Nigel Vital Signs Vital Name Observation Time Observation Value Comments Source HEIGHT 2020-05-17 162.6 cm 00:00:00 WEIGHT 2020-05-17 61.236 kg 00:00:00 Systolic blood 2021-01-01 162 mm[Hg] Simultaneous University of pressure 15:08:00 filing. User may [place] Medic al not have seen Branch previous data. Diastolic blood 2021-01-01 76 mm[Hg] Simultaneous University o f pressure 15:08:00 filing. User may [place] Medic al not have seen Branch previous data. Heart rate 2021-01-01 97 /min Simultaneous [facility] 15:08:00 filing. User may [place] Medic al not have seen Branch previous data. Body temperature 2021-01-01 36.61 Mallory Simultaneous [facility] 15:08:00 filing. User may [place] Medic al not have seen Branch previous data. Respiratory rate 2021-01-01 18 /min [facility] 15:08:00 [facility] Body weight 2021-01-01 63.957 kg University 15:08:00 [facility] Oxygen saturation 2021-01-01 99 /min Simultaneous [facility] in Arterial blood 15:08:00 filing. User may [place] Medical by Pulse oximetry not have seen Branch previous data. HEIGHT 2020-05-17 162.6 cm 00:00:00 WEIGHT 2020-05-17 61.236 kg 00:00:00 Heart Rate 2017-09-04 [facility] Joey n 09:40:00 Systolic (mm Hg) 2017-09-04 [facility] rmann 09:40:00 Diastolic (mm Hg) 2017-09-04 [facility] ermann 09:40:00 Temperature Oral 2017-09-04 96.8 F [facility] rmann (F) 08:54:00 Respitory Rate 2017-09-04 [facility] Herm guanako 08:54:00 Height 2017-09-03 [facility] Joey n 13:16:00 Weight 2017-09-03 [facility] Joey n 13:16:00 Procedures Procedure Date / Time Performed Performing Clinician Isidro carter [id number] 2019-05-18 00:00:00 ENCPL [id number] 2019-05-18 00:00:00 ENCPL [id number] 2019-05-18 00:00:00 ENCPL [id number] 2019-05-18 00:00:00 ENCPL [id number] 2019-05-18 00:00:00 ENCPL Occult Blood 2017-09-04 00:00:00 [facility] Her glynn Thorax Wo Con 2017-09-02 00:00:00 [facility] Her glynn Anaerobic Blood Culture 2017-09-01 00:00:00 Inderjit rial Nigel Aerobic Blood Culture 2017-09-01 00:00:00 Memori al [place] Chest Single View 2017-09-01 00:00:00 [facility] H ermann Influenza Type B Antigen 2017-09-01 00:00:00 [facility] orial Nigel Screen Influenza Type A Antigen 2017-09-01 00:00:00 Mem orial Nigel Screen PLAIN RADIOGRAPHY OF MULT 2017-08-06 00:00:00 Me morial Nigel COR ART USING OTH CONTRAST Plan of Care Planned Activity Planned Date Details Comments Source Future Scheduled 2022-07-16 Lipid panel (procedure) [facility] Test 00:00:00 [code = 00801481] Medical Ce nter Future Scheduled 2022-04-[address] [facility] Test 00:00:00 (Season Ended) [code = Medic al Center INFLUENZA VACCINE (Season Ended)] Future Scheduled 2021-05-[address] [facility] Test 00:00:00 examination Medical Center (regime/therapy) [code = 903793119] Future Scheduled 2020-08-[address] [facility] Test 00:00:00 measurement (procedure) [facility] [code = 27837887] Future Scheduled 2019-11-[address] [facility] Test 00:00:00 0-64 YRS (2 of 4 - Medical C enter PCV13) [code = PNEUMOCOCCAL VACCINE 0-64 YRS (2 of 4 - PCV13)] Future Scheduled 2018-03-17 Urine screening for [facility] Test 00:00:00 protein (procedure) Medical Center [code = 877498840] Future Scheduled 2017-08-[address] [facility] Test 00:00:00 WELLNESS (YEAR 2 or Medical Center FIRST YEAR if no IPPE) [code = MEDICARE ANNUAL WELLNESS (YEAR 2 or FIRST YEAR if no IPPE)] Future Scheduled 1995-10-18 Screening for malignant [facility] Test 00:00:00 neoplasm of cervix Medical C enter (procedure) [code = 069363022] Future Scheduled 1993 DTAP/TDAP/TD VACCINES [facility] Test 00:00:00 (1 - Tdap) [code = Medical C enter DTAP/TDAP/TD VACCINES (1 - Tdap)] Future Scheduled 1992 HEPATITIS C SCREENING [facility] Test 00:00:00 [code = HEPATITIS C Medical Center SCREENING] Future Scheduled 1984 DIABETIC EYE EXAM [code [facility] Test 00:00:00 = DIABETIC EYE EXAM] [facility]uled 1979-10-18 COVID-19 VACCINE (1) [facility] 00:00:00 [code = COVID-[address] VACCINE (1)] Future Scheduled 1974 CT Colonography (combo) [facility] 00:00:00 [code = CT Colonography [facility] (combo)] Future Scheduled 1974 Screening for malignant [facility] 00:00:00 neoplasm of colon Medical Ce nter (procedure) [code = 662793250] Future Scheduled 1974 Screening for malignant [facility] 00:00:00 neoplasm of colon Medical Ce nter (procedure) [code = 957920180] Future Scheduled 1974 Screening for malignant [facility] 00:00:00 neoplasm of colon Medical Ce nter (procedure) [code = 910215981] Future Scheduled 1974 Screening for malignant [facility] 00:00:00 neoplasm of colon Medical Ce nter (procedure) [code = 829741470] Future Scheduled 1974 Sigmoidoscopy [code = [facility]] Medical Johnna hall Future Scheduled [facility] P[facility]onia-Adult [code = Instructions Pneumonia-Adult] Future Scheduled Instructions [facility] P[facility]onia-Adult [code = Instructions Pneumonia-Adult] Encounters Start End Encounter Admission Attending Care Care Encounter Source Date/Time Date/Time Type Type Clinicians Facility Department ID 2021-09-11 Outpatient MIA Kendall [facility] [id number] Common 12:03:02 Ana 23292 [facility] 2020-06-15 Inpatient C LUIZ ACOSTA [id number] [facility] 08:00:00 [facility] 2020-05-18 Inpatient ER ZAINA MONSIVAIS Internal [id number] [facility] 04:28:00 [facility] Med 2019-08-23 Inpatient JEAN Ibrahim HCAWU SURG [id number] [facility] 15:45:[id number] [facility] 2019-04-12 Inpatient [facility] [id number] [facility] W 13:57:46 2022-01-10 2022-01-10 Outpatient [facility]_Tod PRIV PRIV 528 [id number] [facility] 11:11:00 11:11:00 d_J [id number] Medica l 2022-01-08 2022-01-08 Outpatient [facility]_Tod PRIV PRIV 528 [id number] [facility] 08:08:00 08:08:00 d_J [id number] Medica l 2022-01-05 2022-01-05 Outpatient [facility]_Tod PRIV PRIV 528 [id number] [facility] 10:46:00 10:46:00 d_J [id number] Medica l 2022-01-02 2022-01-02 Outpatient [facility]_Tod PRIV PRIV 528 [id number] [facility] 10:46:00 10:46:00 d_J [id number] Medica l 2021-12-29 2021-12-29 Outpatient GC_[facility]_Tod PRIV PRIV 528 [id number] [facility] 10:44:00 10:44:00 d_J [id number] Medica l 2021-12-27 2021-12-27 Outpatient [facility]_Tod PRIV PRIV 528 [id number] [facility] 07:06:00 07:06:00 d_J [id number] Medica l 2021-12-27 2021-12-27 Outpatient Chris, PRIV PRIV [id number] 2-d 00:00:00 00:00:00 Elissa 9ec-11ec-9 [id number] 2021-12-27 2021-12-27 Outpatient Chris, PRIV PRIV [id number] e-d 00:00:00 00:00:00 Elissa 9ee-11ec-a [id number] 2021-12-25 2021-12-25 Outpatient [facility]_Tod PRIV PRIV 528 [id number] [facility] 10:53:00 10:53:00 d_J [id number] Medica l 2021-12-24 2021-12-24 Outpatient GC_[facility]_Tod PRIV PRIV 528 [id number] [facility] 01:29:00 01:29:00 d_J [id number] Medica l 2021-12-24 2021-12-24 Outpatient Chris, PRIV PRIV [id number] e-d 00:00:00 00:00:00 Elissa 78d-[id number]-[id number] 2021-12-22 2021-12-22 Outpatient GC_[facility]_Tod PRIV PRIV 528 [id number] [facility] 10:47:00 10:47:00 d_J [id number] Medica l 2021-12-20 2021-12-20 Outpatient GC_[facility]_Tod PRIV PRIV 528 [id number] [facility] 05:02:00 05:02:00 d_J [id number] Medica l 2021-12-20 2021-12-20 Outpatient Chris, PRIV PRIV [id number] 6-d 00:00:00 00:00:00 Elissa [id number] 2021-12-19 2021-12-19 Outpatient [facility]_Tod PRIV PRIV 528 [id number] [facility] 10:54:00 10:54:00 d_J [id number] Medica l 2021-12-18 2021-12-18 Outpatient GC_BAHC_Tod PRIV PRIV 528 [id number] [facility] 08:47:00 08:47:00 d_J [id number] Medica l 2021-12-17 2021-12-17 Outpatient GC_BA[facility]_Tod PRIV PRIV 528 7361-20 [facility] 07:53:00 07:53:00 d_J [id number] Medica l 2021-12-17 2021-12-17 Outpatient Chris, PRIV PRIV [id number] a-d 00:00:00 00:00:00 Elissa [id number]-11ec-b [id number] 2021-12-15 2021-12-15 Outpatient GC_[facility]_Tod PRIV PRIV 528 [id number] [facility] 10:44:00 10:44:00 d_J [id number] Medica l 2021-12-13 2021-12-13 Outpatient GC_[facility]HC_Tod PRIV PRIV 528 [id number] [facility] 09:23:00 09:23:00 d_J [id number] Medica l 2021-12-13 2021-12-13 Outpatient Chris, PRIV PRIV [id number] 2-c 00:00:00 00:00:00 Elissa [id number] 5108-04-28 2021-12-12 Outpatient GC_[facility]_Tod PRIV PRIV 528 7361-20 [facility] 04:38:00 04:38:00 d_J [id number] Medica l 2021-12-12 2021-12-12 Outpatient Jean, PRIV PRIV [id number] [id number] 00:00:00 00:00:00 Chandu Rojas ccd-11ec-b [id number] 2021-12-10 2021-12-10 Outpatient [facility]_Tod PRIV PRIV 528 [id number] [facility] 01:16:00 01:16:00 d_J [id number] Medica l 2021-12-10 2021-12-10 Outpatient Chris, PRIV PRIV [id number] e-c 00:00:00 00:00:00 Elissa ba4-11ec-b [id number] 3514-04-22 2021-12-06 Outpatient GC_[facility]HC_Tod PRIV PRIV 528 [id number] [facility] 01:13:00 01:13:00 d_J [id number] Medica l 2021-12-06 2021-12-06 Outpatient Chris, PRIV PRIV [id number] 6-c 00:00:00 00:00:00 Elissa 9bc-11ec-8 [id number] 2021-12-05 2021-12-05 Outpatient GC_BAHC_Tol PRIV PRIV 528 [id number] [facility] 08:50:00 08:50:00 and_M [id number] Medica l 2021-12-05 2021-12-05 Outpatient Jean, PRIV PRIV [id number] be2-c 00:00:00 00:00:00 Chandu Rojas 7fc-11ec-b [id number] 2021-12-03 2021-12-03 Outpatient GC_BAHC_Tol PRIV PRIV 528 [id number] [facility] 01:10:00 01:10:00 and_M [id number] Medica l 2021-12-03 2021-12-03 Outpatient Chris, PRIV PRIV [id number] 4-c 00:00:00 00:00:00 Elissa 4bf-11ec-b [id number] 2021-11-28 2021-11-28 Outpatient GC_BAHC_Tol PRIV PRIV 528 [id number] [facility] 11:40:00 11:40:00 and_M [id number] Medica l 2021-11-25 2021-11-25 Outpatient GC_BAHC_Tol PRIV PRIV 528 [id number] [facility] 04:04:00 04:04:00 and_M [id number] Medica l 2021-07-02 2021-07-02 [facility] [id number] [facility] 10:30:00 10:30:00 [facility] [id number] [facility] 2021-01-01 Office [facility] [id number] Univers 09:55:30 11:22:11 [id number] Jaki Aguayo [id number] [address] 2021-01-01 2021-01-01 Out[facility] [id number] Univers 09:45:00 09:45:00 ELISSA amado [facility] 2020-10-30 2020-10-30 Outpatient STLMLC STLMLC [id number] Common 00:00:00 00:00:00 [facility] 2020-06-26 2020-06-26 Outpatient STLMLC STLMLC [id number] Common 00:00:00 00:00:00 [facility] 2019-09-20 2019-09-20 Outpatient ROBERTO IbrahimWU SURG [id number] [facility] 15:45:00 15:45:[id number] [facility] 2019-05-16 2019-05-27 [facility] CVA 5252 ENCPL 21:43:00 13:03:00 hedimitris, 0930 [facility] 2017-09-01 2017-09-[address] [id number] [facility] 21:33:00 13:00:00 [facility] [place] 2017-08-06 2017-08-[address] [id number] [facility] 20:45:00 09:48:00 [facility] [facility] Results Test Description Test Time Test Comments [...] after consultation wi th the clinical microbiology la alanna.Refer to previous cul ture ofCandida parapsilosis GRAM STAIN RESULT No White blood cells seen (BEAKER) (test code = 1123) GRAM STAIN RESULT No organisms seen (BEAKER) (test code = 749082) SURGICALLY OBTAINED CULTURE + GRAM [id number] 11:24:00 Test Item Value Reference Range Interpretation Comments CULTURE (BEAKER) A <1+ Trinidad (test code = parapsilosis 1095) GRAM STAIN No White blood RESULT (BEAKER) cells seen (test code = 1123) GRAM STAIN No organisms seen RESULT (BEAKER) (test code = 43042) ANAEROBIC [id number] 15:40:00 Test Item Value Reference Range Interpretation Comments CULTURE (BEAKER) (test No anaerobes isolated code = 1095) ANAEROBIC [id number] 15:40:00 Test Item Value Reference Range Interpretation Comments CULTURE (BEAKER) (test No anaerobes isolated code = 1095) POCT-GLUCOSE [id number] 08:09:00 Test Item Value Reference Range Interpretation Comments POC-GLUCOSE METER 151 mg/dL 70-110 H : TESTED A T [facility] [address] (BEAKER) (test code [address], = 1538) [facility] [place] 77 478: Continuous Improvement Consultant/Techni tammy ID = [id number] for Emilee Kovacs BASIC METABOLIC [id number] 06:34:00 Test Item Value Reference Range Interpretation [...] S NOT APPLICABLE FOR DIALYSIS PATIEN TS. Continuous Improvement Consultant ID - [id number] 06:23:00 Test Item Value Reference Range Interpretation Comments PHOSPHORUS (BEAKER) (test code = 4.0 mg/dL 2.5-4.5 604) Continuous Improvement Consultant ID - ADMINCBC W/PLT COUNT & AUTO [id number] 05:45:00 Test Item Value Reference Range Interpretation [...] PERCENT (BEAKER) (test code = 2801) POCT-GLUCOSE [id number] 20:47:00 Test Item Value Reference Range Interpretation Comments POC-GLUCOSE METER 205 mg/dL 70-110 H : TESTED A T [facility] [address] (BEAKER) (test code [facility] [address], = 1538) [facility] 77 478: Continuous Improvement Consultant/Techni tammy ID = [id number] for Pat Reyes BLOOD [id number] 13:00:00 Test Item Value Reference Range Interpretation Comments CULTURE (BEAKER) (test No growth in 5 days code = 1095) POCT-GLUCOSE [id number] 11:38:00 Test Item Value Reference Range Interpretation Comments POC-GLUCOSE METER 74 mg/dL 70-110 : TESTED A T [address] [address] (BEAKER) (test code = [address], 1538) [facility] 77 478: Continuous Improvement Consultant/Techni tammy ID = [id number] for Soheila Cheatham POCT-GLUCOSE [id number] 07:31:00 Test Item Value Reference Range Interpretation Comments POC-GLUCOSE METER 104 mg/dL 70-110 : TESTED A T [facility] [address] (BEAKER) (test code [address], = 1538) [facility] 77 478: Continuous Improvement Consultant/Techni tammy ID = [id number] for Buff bettina, Soheila BASIC METABOLIC [id number] 05:25:00 Test Item Value Reference Range Interpretation [...] S NOT APPLICABLE FOR DIALYSIS PATIEN TS. Continuous Improvement Consultant ID - [id number] 05:21:00 Test Item Value Reference Range Interpretation Comments PHOSPHORUS (BEAKER) (test code = 5.1 mg/dL 2.5-4.5 H 604) Continuous Improvement Consultant ID - ADMINVANCOMYCIN LEVEL, [id number] 05:20:00 Test Item Value Reference Range Interpretation Comments VANCOMYCIN RANDOM (BEAKER) (test 19.7 ug/mL code = 523) Reference Range: No NormalsOperator ID - ADMINCBC W/PLT COUNT & AUTO [id number] 05:10:00 Test Item Value Reference Range Interpretation [...] PERCENT (BEAKER) (test code = 2801) POCT-GLUCOSE [id number] 20:52:00 Test Item Value Reference Range Interpretation Comments POC-GLUCOSE METER 127 mg/dL 70-110 H : TESTED A T [facility] [address] (BEAKER) (test code [address], = 1538) [place] [address] 478: Continuous Improvement Consultant/Techni tammy ID = [id number] for chyna Waldrop TISSUE [id number] 11:55:00Surgical Pathology Report Case: [id number] Authorizing Provider: Jada Acosta DPM Collected: 05/21/2020 12:36 PM Ordering Location: [facility] Med Surg 5th Floor Received: 05/21/2020 12:49 PM Pathologist: Ann Meeks MD Specimen: Benito ne, right 1st metatarsal head bone biopsy BONE, RIGHT FIRSTMETATARSAL HEAD, BIOPSY: - BONE WITH FOCAL FIBROSIS AND CHRONIC INFLAMMATION, CONSISTENT WITH CHRONIC OSTEOMYELITIS Signing Pathologist Direct Phone Line: [phone] signed by Ann Meeks MD on 05/22/2020 at 11:55 [id number]; [id number] foot abscessRight 1st metatarsalhead bone biopsySpecimen is received in formalin designated "bone" and consists of two marin-red bone fragments measuring 1 x 0.3 x 0.3 cm, submitted after decalcification in cassette A1. SQ/plPerformed. [facility], Department of Pathology, [address] [place] [address] 8 1009, [place] [facility], Department of Pathology, [address] [place] [address], NvThe [facility], Department of Pathology, [address] [place] [address], HFPV-GLUCOSE [id number] 11:41:00 Test Item Value Reference Range Interpretation Comments POC-GLUCOSE METER 84 mg/dL 70-110 : TESTED A T [address] [address] (BEAKER) (test code = [address], 1538) [facility] 77 478: Continuous Improvement Consultant/Techni tammy ID = [id number] for Mary Adames POCT-GLUCOSE [id number] 07:38:00 Test Item Value Reference Range Interpretation Comments POC-GLUCOSE METER 93 mg/dL 70-110 : TESTED A T [address] (BEAKER) (test code = [address], 1538) [place] [address] 478: Continuous Improvement Consultant/Techni tammy ID = [id number] for Mary Adames BASIC METABOLIC [id number] 06:04:00 Test Item Value Reference Range Interpretation [...] S NOT APPLICABLE FOR DIALYSIS PATIEN TS. Continuous Improvement Consultant ID - [id number] 05:51:00 Test Item Value Reference Range Interpretation Comments PHOSPHORUS (BEAKER) (test code = 4.4 mg/dL 2.5-4.5 604) Continuous Improvement Consultant ID - ADMINCBC W/PLT COUNT & AUTO [id number] 05:30:00 Test Item Value Reference Range Interpretation [...] PERCENT (BEAKER) (test code = 2801) POCT-GLUCOSE [id number] 21:49:00 Test Item Value Reference Range Interpretation Comments POC-GLUCOSE METER 95 mg/dL 70-110 : TESTED A T [address] [address] (BEAKER) (test code = [address], 1538) [place] [address]: Continuous Improvement Consultant/Techni tammy ID = [id number] for Jacquie Vázquez POCT-GLUCOSE [id number] 12:40:00 Test Item Value Reference Range Interpretation Comments POC-GLUCOSE METER 80 mg/dL 70-110 : TESTED A T [address] [address] (BEAKER) (test code = [address], 1538) [place] [address]: Continuous Improvement Consultant/Techni tammy ID = [id number] for Shirley an, Berenice HCG, SERUM, [id number] 10:42:00 Test Item Value Reference Range Interpretation Comments TEST SERUM (BEAKER) (test Negative code = 584) POCT-GLUCOSE [id number] 07:56:00 Test Item Value Reference Range Interpretation Comments POC-GLUCOSE METER 105 mg/dL 70-110 : TESTED A T [facility] [address] (BEAKER) (test code [address], = 1538) [place] [address]: Continuous Improvement Consultant/Techni tammy ID = [id number] for Mary Adames BASIC METABOLIC [id number] 04:24:00 Test Item Value Reference Range Interpretation [...] S NOT APPLICABLE FOR DIALYSIS PATIEN TS. Continuous Improvement Consultant ID - ADMINIRON, TIBC, % SAT. (WITHOUT FERRITIN)2020-05-21 04:24:00 Test Item Value Reference Range Interpretation Comments IRON (BEAKER) (test code = 547) 68.0 ug/dL 45.0-170.0 TOTAL IRON BINDING CAPACITY 170 ug/dL 250-550 L (BEAKER) (test code = 769) IRON % SATURATION (2) (BEAKER) 40 % 20-55 (test code = 2590) Continuous Improvement Consultant ID - [id number] 04:20:00 Test Item Value Reference Range Interpretation Comments MAGNESIUM (BEAKER) (test code = 2.0 mg/dL 1.5-3.0 627) Continuous Improvement Consultant ID - ADMINPROTHROMBIN [id number] 04:18:00 Test Item Value Reference Range Interpretation Comments PROTIME (BEAKER) (test code = 759) 10.9 sec 9.3-12.0 INR (BEAKER) (test code = 370) 1.00 <=5.90 RECOMMENDED COUMADIN/WARFARIN INR THERAPY RANGESSTANDARD DOSE: 2.0 - 3.0 Includes: PROPHYLAXIS forvenous thrombosis, systemic embolization; TREATMENT for venous thrombosis and/or pulmonary embolus.HIGH RISK: Target INR is 2.5-3.5 for patients with mechanical heart valves.Final Information (Auto Output)Final Information (Auto Output)[id number] 04:18:00 Test Item Value Reference Range Interpretation Comments PARTIAL THROMBOPLASTIN TIME (BEAKER) 27.9 sec 23.0-35.0 (test code = 760) Final Information (Auto Output)[id number] 04:17:00 Test Item Value Reference Range Interpretation Comments PHOSPHORUS (BEAKER) (test code = 6.9 mg/dL 2.5-4.5 H 604) Continuous Improvement Consultant ID - ADMINVANCOMYCIN LEVEL, [id number] 04:16:00 Test Item Value Reference Range Interpretation Comments VANCOMYCIN RANDOM (BEAKER) (test 13.8 ug/mL code = 523) Reference Range: No NormalsOperator ID - ADMINCBC W/PLT COUNT & AUTO [id number] 04:03:00 Test Item Value Reference Range Interpretation [...] PERCENT (BEAKER) (test code = 2801) POCT-GLUCOSE [id number] 21:19:00 Test Item Value Reference Range Interpretation Comments POC-GLUCOSE METER 118 mg/dL 70-110 H : TESTED A T [facility] [address] (BEAKER) (test code [address], = 1538) [place] [address]: Continuous Improvement Consultant/Techni tammy ID = [id number] for Jacquie Vázquez POCT-GLUCOSE [id number] 16:03:00 Test Item Value Reference Range Interpretation Comments POC-GLUCOSE METER 273 mg/dL 70-110 H : TESTED A T [facility] [address] (BEAKER) (test code [address], = 1538) [place] [address]: Continuous Improvement Consultant/Techni tammy ID = [id number] for Mary Adames POCT-GLUCOSE [id number] 11:32:00 Test Item Value Reference Range Interpretation Comments POC-GLUCOSE METER 224 mg/dL 70-110 H : TESTED A T [facility] [address] (BEAKER) (test code [address], = 1538) [place] [address]: Continuous Improvement Consultant/Techni tammy ID = [id number] for Mary Adames POCT-GLUCOSE [id number] 07:33:00 Test Item Value Reference Range Interpretation Comments POC-GLUCOSE METER 260 mg/dL 70-110 H : TESTED A T [address] (BEAKER) (test code [address], = 1538) [place] [address]: Continuous Improvement Consultant/Techni tammy ID = [id number] for Mary Adames TSH/FREE T4 IF [id number] 07:06:00 Test Item Value Reference Range Interpretation Comments THYROID STIMULATING HORMONE 3.130 uIU/mL 0.350-5.500 (BEAKER) (test code = 772) Continuous Improvement Consultant ID - ADMINBASIC METABOLIC [id number] 06:52:00 Test Item Value Reference Range Interpretation [...] S NOT APPLICABLE FOR DIALYSIS PATIEN TS. Continuous Improvement Consultant ID - [id number] 06:49:00 Test Item Value Reference Range Interpretation Comments MAGNESIUM (BEAKER) 1.9 mg/dL 1.5-3.0 Specimen slightly (test code = 627) hemolyzed Continuous Improvement Consultant ID - [id number] 06:46:00 Test Item Value Reference Range Interpretation Comments PHOSPHORUS (BEAKER) 6.2 mg/dL 2.5-4.5 H Specimen slightly (test code = 604) hemolyzed Continuous Improvement Consultant ID - ADMINCBC W/PLT COUNT & AUTO [id number] 05:25:00 Test Item Value Reference Range Interpretation [...] PERCENT (BEAKER) (test code = 2801) POCT-GLUCOSE [id number] 22:13:00 Test Item Value Reference Range Interpretation Comments POC-GLUCOSE METER 318 mg/dL 70-110 H : [facility] (test code [facility] [address], = 1538) [facility] 77 478: Continuous Improvement Consultant/Techni tammy ID = [id number] for Elissa Diaz POCT-GLUCOSE [id number] 16:36:00 Test Item Value Reference Range Interpretation Comments POC-GLUCOSE METER 238 mg/dL 70-110 H : Notified RN/MD: TESTED (BEAKER) (test code AT [facility] [address] = 1538) [place] [address]: Continuous Improvement Consultant/Techni tammy ID = [id number] for Cuate Castañeda HEPATITIS B SURFACE [id number] 12:07:00 Test Item Value Reference Range Interpretation Comments HEPATITIS B SURFACE ANTIBODY 9.4 mIU/mL <8.0 H (BEAKER) (test code = 647) Continuous Improvement Consultant ID - IMANIOCT-GLUCOSE [id number] 11:31:00 Test Item Value Reference Range Interpretation Comments POC-GLUCOSE METER 170 mg/dL 70-110 H : Notified RN/MD: TESTED ([facility]) (test code AT [facility] [address] = 1538) [place] [address]: Continuous Improvement Consultant/Techni tammy ID = [id number] for Cuate Castañeda VANCOMYCIN LEVEL, [id number] 09:31:00 Test Item Value Reference Range Interpretation Comments VANCOMYCIN RANDOM (BEAKER) (test 14.3 ug/mL code = 523) Reference Range: No NormalsOperator ID - ADMINBASIC METABOLIC [id number] 08:59:00 Test Item Value Reference Range Interpretation [...] S NOT APPLICABLE FOR DIALYSIS PATIEN TS. Continuous Improvement Consultant ID - [id number] 08:56:00 Test Item Value Reference Range Interpretation Comments MAGNESIUM (BEAKER) (test code = 1.9 mg/dL 1.5-3.0 627) Continuous Improvement Consultant ID - [id number] 08:53:00 Test Item Value Reference Range Interpretation Comments PHOSPHORUS (BEAKER) (test code = 4.7 mg/dL 2.5-4.5 H 604) Continuous Improvement Consultant ID - ADMINCBC W/PLT COUNT & AUTO [id number] 08:51:00 Test Item Value Reference Range Interpretation [...] PERCENT (BEAKER) (test code = 2801) POCT-GLUCOSE [id number] 07:53:00 Test Item Value Reference Range Interpretation Comments POC-GLUCOSE METER 153 mg/dL 70-110 H : Notified RN/MD: TESTED (BEAKER) (test code AT [facility] [address] [place] [address] = 1538) YESSYPolina [facility] [address]: Continuous Improvement Consultant/Techni tammy ID = [id number] for Cuate Castañeda SARS-COV2/RT-PCR ([facility])2020-05-19 00:02:00 Test Item Value Reference Range Interpretation Comments SARS-COV2/RT-PCR (test Negative Not Detected, Negative, code = 3839181) See external report for linked test SARS-COV-2 PERFORMING LAB [facility] (test code = 3984870) Negative result for this test determines that [...] 564(g) of the Act.Fact Sheet for Healthcare Providers:https://www.[employer]/sites/default/files/product/documents/Fact_Shee o_RI_Kxotxoqsk_Iewn_AOSA-YxZ-2.pdfFact Sheet for Healthcare Patients:https://www.[employer]/sites/default/files/product/ documents/Iipe_Weyuk_Cznkondq_Jzci_XQQP-FcI-3.pdfPerforming Laboratory:[facility] [place], [place] [address], [place] [address]WDHC-AIUWLDG METER 2020-05-18 21:01:00 Test Item Value Reference Range Interpretation Comments POC-GLUCOSE METER 190 mg/dL 70-110 H : TESTED A T [facility] [address] (BEAKER) (test code [address], = 1538) [place] [address]: Continuous Improvement Consultant/Techni tammy ID = [id number] for Nehal Patiño HEPATITIS B SURFACE [id number] 20:29:00 Test Item Value Reference Range Interpretation Comments HEPATITIS B SURFACE ANTIGEN (2) Nonreactive Nonreactive (BEAKER) (test code = 2585) Continuous Improvement Consultant ID - ADMINPOCT-GLUCOSE [id number] 16:43:00 Test Item Value Reference Range Interpretation Comments POC-GLUCOSE METER 211 mg/dL 70-110 H : TESTED A T [facility] [address] (BEAKER) (test code [address], = 1538) [place] [address]: Continuous Improvement Consultant/Techni tammy ID = [id number] for Daryn marcanoMary MR, EXTREMITY, LOWER, WITHOUT CONTRAST, [id number] 15:44:00Recent amputation for R great toe osteomyelitis/diabetic [...] short interval imaging follow-up if clinically appropriate. Signed:Guaanko Tyler Verified Date/Time: 05/18/2020 15:44:11 Reading Location: [facility] Radiology Reading Room POCT-GLUCOSE [id number] 12:55:00 Test Item Value Reference Range Interpretation Comments POC-GLUCOSE METER 169 mg/dL 70-110 H : TESTED A T [facility] 1317 ([place]) (test code [address], = 1538) [facility] 77 [phone]: Continuous Improvement Consultant/Techni tammy ID = [id number] for Mary Adames HEPATIC FUNCTION [id number] 09:20:00 Test Item Value Reference Range Interpretation [...] Specimen slightly (test code = 347) hemolyzed Continuous Improvement Consultant ID - [id number] 09:20:00 Test Item Value Reference Range Interpretation Comments MAGNESIUM (BEAKER) 3.8 mg/dL 1.5-3.0 H Specimen slightly (test code = 627) hemolyzed Continuous Improvement Consultant ID - ADMINHEMOGLOBIN [id number] 09:20:00 Test Item Value Reference Range Interpretation Comments HEMOGLOBIN A1C (BEAKER) (test code = 9.4 % 4.3-6.1 H 368) Continuous Improvement Consultant ID - ADMINBASIC METABOLIC [id number] 09:19:00 Test Item Value Reference Range Interpretation [...] S NOT APPLICABLE FOR DIALYSIS PATIEN TS. Continuous Improvement Consultant ID - ADMINC-REACTIVE [id number] 09:19:00 Test Item Value Reference Range Interpretation Comments C-REACTIVE PROTEIN (BEAKER) (test 1.17 mg/dL 0.00-0.50 H code = 676) Continuous Improvement Consultant ID - ADMINVANCOMYCIN LEVEL, [id number] 09:18:00 Test Item Value Reference Range Interpretation Comments VANCOMYCIN TROUGH (BEAKER) (test 15.1 ug/mL 10.0-20.0 code = 522) Continuous Improvement Consultant ID - ADMINCBC W/PLT COUNT & AUTO [id number] 09:09:00 Test Item Value Reference Range Interpretation [...] PERCENT (BEAKER) (test code = 2801) POCT-GLUCOSE [id number] 08:18:00 Test Item Value Reference Range Interpretation Comments POC-GLUCOSE METER 177 mg/dL 70-110 H : TESTED A T [facility] 1317 (BEAKER) (test code [facility] [address], = 1538) [facility] 77 478: Continuous Improvement Consultant/Techni tammy ID = [id number] for Mary Adames RAD, CHEST, 1 VIEW, NON [id number] 08:11:00Reason for exam:->shortness of breathShould this be performed at the bedside?->YesFINAL REPORT CLINICAL HISTORY: shortness of breath TECHNIQUE: 1 view of the chest. COMPARISON: 07/18/2019 IMPRESSION: There are new, mildly prominent interstitial opacities bilaterally. There is no lobar consolidation or significant pleural fluid. There is no cardiomegaly. Surgical clips are seen in the medial left upper arm. Signed: Marychuy Buenoort Verified Date/Time: 05/18/2020 08:11:49 Reading Location: [facility] Radiology Reading Room Electronically signedby: MARYCHUY BUENO M.D. on 05/18/2020 08:11 AMHEPATITIS B SURF AB, [id number] 18:16:00 Test Item Value Reference Range Interpretation [...] ~~~~~~~~ ~~~~~~~~~~~~~~~ ~~~~~~~~ ~ AG HEPATITIS B [id number] 18:16:00 Test Item Value Reference Range Interpretation Comments AG HEPATITIS B SURFACE (test code = NEGATIVE NONREACTIVE HBSAG) HIV 12 AB [id number] 18:16:00 Test Item Value Reference Range Interpretation Comments HIV 1 2 COMBO AG/AB SCREEN AB/AG NON REACTIVE NONREACTIVE (test code = [id number]) HEPATITIS B SURF AB, [id number] 17:51:00 Test Item Value Reference Range Interpretation Comments HEPATITIS B SURF AB, QUANT (test code mIU/mL = HBSABQ) AG HEPATITIS B [id number] 17:51:00 Test Item Value Reference Range Interpretation Comments AG HEPATITIS B SURFACE (test code = NEGATIVE NONREACTIVE HBSAG) HIV 12 AB [id number] 17:51:00 Test Item Value Reference Range Interpretation Comments HIV 1 2 COMBO AG/AB SCREEN AB/AG NON REACTIVE NONREACTIVE (test code = [id number]) HEPATITIS B SURF AB, [id number] 17:39:00 Test Item Value Reference Range Interpretation Comments HEPATITIS B SURF AB, QUANT (test code mIU/mL = HBSABQ) AG HEPATITIS B [id number] 17:39:00 Test Item Value Reference Range Interpretation Comments AG HEPATITIS B SURFACE (test code = NEGATIVE NONREACTIVE HBSAG) HIV 12 AB [id number] 17:39:00 Test Item Value Reference Range Interpretation Comments HIV 1 2 COMBO AG/AB SCREEN (test code = NONREACTIVE [id number]) GLUCOSE BEDSIDE [id number] 12:00:00 Test Item Value Reference Range Interpretation Comments GLUCOSE BEDSIDE TESTING (test code 136 MG/DL 60-99 H = GLUBED) GLUCOSE BEDSIDE [id number] 21:08:00 Test Item Value Reference Range Interpretation Comments GLUCOSE BEDSIDE TESTING (test code = 84 MG/DL 60-99 N GLUBED) BASIC METABOLIC [id number] 16:40:00 Test Item Value Reference Range Interpretation [...] 9.0 MG/DL 8.4-10.2 N CA) HCG SERUM [id number] 16:40:00 Test Item Value Reference Range Interpretation Comments HCG SERUM QUAL (test code = HCGQL) NEGATIVE NEGATIVE A PROTHROMBIN [id number] 16:32:00 Test Item Value Reference Range Interpretation [...] sunshine embolism. 3.0 - 4.5 Comments to Aviculturist: PREOPPTT [id number] 16:32:00 Test Item Value Reference Range Interpretation Comments PTT ACTIVATED (test code = APTT) 30.3 SECONDS 22.0-33.0 N Comments to Aviculturist: PREOPBASIC METABOLIC [id number] 16:32:00 Test Item Value Reference Range Interpretation [...] code = CA) MG/DL 8.7-9.7 HCG SERUM [id number] 16:32:00 Test Item Value Reference Range Interpretation Comments HCG SERUM QUAL (test code = HCGQL) NEGATIVE NEGATIVE A BASIC METABOLIC [id number] 16:31:00 Test Item Value Reference Range Interpretation [...] code = CA) MG/DL 8.7-9.7 HCG SERUM [id number] 16:31:00 Test Item Value Reference Range Interpretation Comments HCG SERUM QUAL (test code = HCGQL) NEGATIVE CBC W/AUTO [id number] 16:25:00 Test Item Value Reference Range Interpretation [...] 0.00 K/mm3 0.0-0.1 N NRBC#) GLUCOSE BEDSIDE [id number] 18:41:00 Test Item Value Reference Range Interpretation Comments GLUCOSE BEDSIDE TESTING (test code = 83 MG/DL 60-99 N GLUBED) BASIC METABOLIC [id number] 15:04:00 Test Item Value Reference Range Interpretation [...] 9.1 MG/DL 8.4-10.2 N CA) BASIC METABOLIC [id number] 15:00:00 Test Item Value Reference Range Interpretation [...] code = CA) MG/DL 8.7-9.7 HCG SERUM [id number] 14:59:00 Test Item Value Reference Range Interpretation Comments HCG SERUM QUAL (test code = HCGQL) NEGATIVE NEGATIVE A PROTHROMBIN [id number] 14:56:00 Test Item Value Reference Range Interpretation [...] syste sunshine embolism. 3.0 - 4.5 PTT [id number] 14:56:00 Test Item Value Reference Range Interpretation Comments PTT ACTIVATED (test code = APTT) 27.9 SECONDS 22.0-33.0 N CBC W/AUTO [id number] 14:43:00 Test Item Value Reference Range Interpretation [...] N NRBC#) RAD, CHEST, 1 VIEW, NON [id number] 11:27:00Reason for exam:->r/o pneumoniaShould this be performed [...] MDReport Verified Date/Time: 07/18/2019 11:27:35 Reading Location: [facility] Radiology Reading Room POCT-GLUCOSE [id number] 08:34:00 Test Item Value Reference Range Interpretation Comments POC-GLUCOSE METER 126 mg/dL 70-110 H : TESTED A T [facility] 6720 (BEAKER) (test code = NATALIER[address]HA Hall [facility], 1538) [address]: Continuous Improvement Consultant/Techni tammy ID = [id number] for Baldomero Carney BASIC METABOLIC [id number] 06:56:00 Test Item Value Reference Range Interpretation [...] S NOT APPLICABLE FOR DIALYSIS PATIEN TS. [id number] 06:45:00 Test Item Value Reference Range Interpretation Comments PHOSPHORUS (BEAKER) (test code = 4.6 mg/dL 2.3-4.7 604) [id number] 06:45:00 Test Item Value Reference Range Interpretation Comments MAGNESIUM (BEAKER) (test code = 2.0 mg/dL 1.6-2.6 627) CBC W/PLT COUNT & AUTO [id number] 05:35:00 Test Item Value Reference Range Interpretation [...] PERCENT (BEAKER) (test code = 2801) PROTHROMBIN [id number] 05:24:00 Test Item Value Reference Range Interpretation [...] is2.5-3.5 for patients wiht mechanical heart valves.POCT-GLUCOSE [id number] 21:08:00 Test Item Value Reference Range Interpretation Comments POC-GLUCOSE METER 191 mg/dL 70-110 H : TESTED A T [facility] 6720 (BEAKER) (test code = [facility] [employer] [facility], 1538) [address]: Continuous Improvement Consultant/Techni tammy ID = [id number] for Tomer dixon Keith POCT-GLUCOSE [id number] 17:20:00 Test Item Value Reference Range Interpretation Comments POC-GLUCOSE METER 168 mg/dL 70-110 H : TESTED A T [facility] 6720 (BEAKER) (test code = [facility] [employer] [facility], 1538) [address]: Continuous Improvement Consultant/Techni tammy ID = [id number] for MAVIS GARRIDO POCT-GLUCOSE [id number] 12:49:00 Test Item Value Reference Range Interpretation Comments POC-GLUCOSE METER 221 mg/dL 70-110 H : TESTED A T [facility] 6720 (BEAKER) (test code = [facility] [place], 1538) [address]: Continuous Improvement Consultant/Techni tammy ID = [id number] for MAVIS GARRIDO SCREEN, [id number] 11:54:00 Test Item Value Reference Range Interpretation Comments TEST URINE (BEAKER) (test Negative code = 583) POCT-GLUCOSE [id number] 09:11:00 Test Item Value Reference Range Interpretation Comments POC-GLUCOSE METER 112 mg/dL 70-110 H : TESTED A T [facility] 6720 (BEAKER) (test code = [facility] [place], 1538) [address]: Continuous Improvement Consultant/Techni tammy ID = [id number] for MAVIS GARRIDO BASIC METABOLIC [id number] 06:50:00 Test Item Value Reference Range Interpretation [...] S NOT APPLICABLE FOR DIALYSIS PATIEN TS. [id number] 06:38:00 Test Item Value Reference Range Interpretation Comments PHOSPHORUS (BEAKER) (test code = 3.9 mg/dL 2.3-4.7 604) [id number] 06:38:00 Test Item Value Reference Range Interpretation Comments MAGNESIUM (BEAKER) (test code = 1.9 mg/dL 1.6-2.6 627) PROTHROMBIN [id number] 06:12:00 Test Item Value Reference Range Interpretation [...] mechanical heart valves.CBC W/PLT COUNT & AUTO [id number] 06:06:00 Test Item Value Reference Range Interpretation [...] 0-1 PERCENT (BEAKER) (test code = 2801) [id number] 04:27:00 Test Item Value Reference Range Interpretation Comments RPR SCREEN (BEAKER) (test code = Nonreactive Nonreactive 420) MR, MRA, BRAIN, WITHOUT [id number] 03:28:00Reason for exam:- >StrokeWhat is the patient's [...] 07/17/2019 03:28:33 MR, MRA, NECK, WITHOUT IV [id number] 03:28:00FINAL REPORT MR, BRAIN, WITHOUT CONTRAST, MR, [...] Verified Date/Time: 07/17/2019 03:28:33 MR, BRAIN, WITHOUT [id number] 03:28:00 Reason for exam:->StrokeWhat is the patient's [...] Ortiz MDReport Verified Date/Time: 07/17/2019 03:28:33 POCT-GLUCOSE [id number] 21:16:00 Test Item Value Reference Range Interpretation Comments POC-GLUCOSE METER 143 mg/dL 70-110 H : TESTED A T [facility] 6720 ([employer]) (test code = [facility], 1538) [address]: Continuous Improvement Consultant/Techni tammy ID = [id number] for JUSTIN HAYDENJANELL REYES POCT-GLUCOSE [id number] 17:33:00 Test Item Value Reference Range Interpretation Comments POC-GLUCOSE METER 108 mg/dL 70-110 : TESTED A T [facility] 6720 (BEAKER) (test code = [facility], 153) [address]: Continuous Improvement Consultant/Techni tammy ID = [id number] for TAVON DUVALL POCT-GLUCOSE [id number] 17:25:00 Test Item Value Reference Range Interpretation Comments POC-GLUCOSE METER 155 mg/dL 70-110 H : TESTED A T [facility] 6720 (BEAKER) (test code = [facility], 153) [address]: Continuous Improvement Consultant/Techni tammy ID = [id number] for SIMON CHO HEPATITIS B SURFACE [id number] 14:30:00 Test Item Value Reference Range Interpretation Comments HEPATITIS B SURFACE ANTIGEN (2) Nonreactive Nonreactive (BEAKER) (test code = 2585) POCT-GLUCOSE [id number] 12:17:00 Test Item Value Reference Range Interpretation Comments POC-GLUCOSE METER 146 mg/dL 70-110 H : TESTED A T [facility] 6720 (BEAKER) (test code = [facility], 1538) [address]: Continuous Improvement Consultant/Techni tammy ID = [id number] for MAVIS GARRIDO BASIC METABOLIC [id number] 09:26:00 Test Item Value Reference Range Interpretation [...] NOT APPLICABLE FOR DIALYSIS PATIEN TS. POCT-GLUCOSE [id number] 08:27:00 Test Item Value Reference Range Interpretation Comments POC-GLUCOSE METER 106 mg/dL 70-110 : TESTED A T [facility] 6720 (BEAKER) (test code = [facility], 1538) [address]: Continuous Improvement Consultant/Techni tammy ID = [id number] for SIMON CHO POCT-GLUCOSE [id number] 07:46:00 Test Item Value Reference Range Interpretation Comments POC-GLUCOSE METER 171 mg/dL 70-110 H : TESTED A T [facility] 6720 (BEAKER) (test code [facility], = 1538) [address]: Continuous Improvement Consultant/Techni tammy ID = [id number] for HUGH S, KRIZALINA RAD, CHEST, 1 VIEW, NON [id number] 07:36:00Reason for exam:- >baselineShould this be performed [...] MDReport Verified Date/Time: 07/16/2019 07:36:01 Reading Location: [place] [id number] Body Reading Room HEMOGLOBIN [id number] 06:42:00 Test Item Value Reference Range Interpretation Comments HEMOGLOBIN A1C (BEAKER) (test code = 9.5 % 4.3-6.1 H 368) BASIC METABOLIC [id number] 06:27:00 Test Item Value Reference Range Interpretation [...] DIALYSIS PATIEN TS. HIV-1 ANTIGEN WITH HIV-1/2 [id number] 05:52:00 Test Item Value Reference Range Interpretation Comments HIV-1 ANTIGEN WITH HIV 1\\T\\2 Nonreactive Nonreactive ANTIBODY (2) (BEAKER) (test code = 2586) POCT-GLUCOSE [id number] 05:38:00 Test Item Value Reference Range Interpretation Comments POC-GLUCOSE METER 420 mg/dL 70-110 HH : Notified RN/MD: TESTED (BEAKER) (test code AT [facility] [address] = 1538) [place], [address]: Continuous Improvement Consultant/Techni tammy ID = [id number] for YASMINE VO TSH/FREE T4 IF [id number] 05:11:00 Test Item Value Reference Range Interpretation Comments THYROID STIMULATING HORMONE 0.87 uIU/mL 0.35-4.94 (BEAKER) (test code = 772) VITAMIN B12 AND [id number] 05:11:00 Test Item Value Reference Range Interpretation Comments VITAMIN B12 (BEAKER) (test code = 525 pg/mL 213-816 774) FOLATE (BEAKER) (test code = 362) 6.5 ng/mL >=7.0 L BASIC METABOLIC [id number] 04:57:00 Test Item Value Reference Range Interpretation [...] S NOT APPLICABLE FOR DIALYSIS PATIEN TS. [id number] 04:47:00 Test Item Value Reference Range Interpretation Comments PHOSPHORUS (BEAKER) (test code = 5.5 mg/dL 2.3-4.7 H 604) [id number] 04:47:00 Test Item Value Reference Range Interpretation Comments MAGNESIUM (BEAKER) (test code = 2.0 mg/dL 1.6-2.6 627) LIPID [id number] 04:47:00 Test Item Value Reference Range Interpretation [...] 130-159 High 160-189 Very High >=190HEPATIC FUNCTION [id number] 04:47:00 Test Item Value Reference Range Interpretation [...] = 99 U/L 6-55 H 347) PROTHROMBIN [id number] 04:11:00 Test Item Value Reference Range Interpretation [...] mechanical heart valves.CBC W/PLT COUNT & AUTO [id number] 04:03:00 Test Item Value Reference Range Interpretation [...] PERCENT (BEAKER) (test code = 2801) POCT-GLUCOSE [id number] 03:47:00 Test Item Value Reference Range Interpretation Comments POC-GLUCOSE METER > mg/dL 70-110 HH : Notified RN/MD: TESTED (BEAKER) (test code = AT [facility] 6720 [facility] 1538) [facility], [facility] 30: Continuous Improvement Consultant/Techni tammy ID = [id number] for SYLVIA JONES Laboratory [id number] 10:16:00 Test Item Value Reference Range Interpretation Comments Urine Random Total Protein (test code = 545 Urine Random Total Protein) [facility] [id number] 10:16:00 Test Item Value Reference Range Interpretation Comments Urine Protein/Creatinine Ratio (test 8.35 1 code = Urine Protein/Creatinine Ratio) [facility] [id number] 10:16:00 Test Item Value Reference Range Interpretation Comments Urine Creatinine (test code = Urine 65.3 Creatinine) [facility] [id number] 05:44:00 Test Item Value Reference Range Interpretation Comments Total Bilirubin (test code = Total 0.6 0.3-1.2 Bilirubin) [facility] [id number] 05:44:00 Test Item Value Reference Range Interpretation Comments Sodium Level (test code = Sodium Level) 140 135-145 [facility]2018-01-19 05:44:00 Test Item Value Reference Range Interpretation Comments Serum Total Protein (test code = Serum 3.7 6.0-8.3 Total Protein) [facility]2018-01-19 05:44:00 Test Item Value Reference Range Interpretation Comments Potassium Level (test code = Potassium 3.6 3.6-5.0 Level) [facility]2018-01-19 05:44:00 Test Item Value Reference Range Interpretation Comments Phosphorus Level (test code = 3.2 2.5-4.3 Phosphorus Level) [facility]2018-01-19 05:44:00 Test Item Value Reference Range Interpretation Comments Glucose Level (test code = Glucose 104 65-120 Level) [facility]2018-01-19 05:44:00 Test Item Value Reference Range Interpretation Comments Globulin (test code = Globulin) 2.6 2.3-3.5 [facility]2018-01-19 05:44:00 Test Item Value Reference Range Interpretation Comments Estimat Glomerular 33 See_Comment [Automat ed message] The Filtration Rate (test system which generated code = Estimat this result t ransmitted Glomerular Filtration refere nce range: >=90. Rate) The reference r jayleen was not used to int erpret this result as normal/abnormal . [facility]2018-01-19 05:44:00 Test Item Value Reference Range Interpretation Comments Creatinine (test code = Creatinine) 1.72 0.44-1.00 [facility]2018-01-19 05:44:00 Test Item Value Reference Range Interpretation Comments Chloride Level (test code = Chloride 117 101-111 Level) [facility]2018-01-19 05:44:00 Test Item Value Reference Range Interpretation Comments Carbon Dioxide Level (test code = 19 21-31 Carbon Dioxide Level) [facility]2018-01-19 05:44:00 Test Item Value Reference Range Interpretation Comments Calcium Level (test code = Calcium 7.3 8.5-10.5 Level) [facility]2018-01-19 05:44:00 Test Item Value Reference Range Interpretation Comments Blood Urea Nitrogen (test code = Blood 13 6-20 Urea Nitrogen) [facility]2018-01-19 05:44:00 Test Item Value Reference Range Interpretation Comments Aspartate Amino Transf (AST/SGOT) (test 16 10-42 code = Aspartate Amino Transf (AST/SGOT)) [facility]2018-01-19 05:44:00 Test Item Value Reference Range Interpretation Comments Alkaline Phosphatase (test code = 73 42-121 Alkaline Phosphatase) [facility]2018-01-19 05:44:00 Test Item Value Reference Range Interpretation Comments Albumin/Globulin Ratio (test code = 0.4 1 1.1-1.8 Albumin/Globulin Ratio) [facility]2018-01-19 05:44:00 Test Item Value Reference Range Interpretation Comments Albumin (test code = Albumin) 1.1 3.2-5.5 [facility]2018-01-19 05:44:00 Test Item Value Reference Range Interpretation Comments Alanine Aminotransferase (ALT/SGPT) 12 10-60 (test code = Alanine Aminotransferase (ALT/SGPT)) [facility]2018-01-18 05:51:00 Test Item Value Reference Range Interpretation Comments Mean Platelet Volume (test code = Mean 9.7 7.6-11.3 Platelet Volume) [facility]2018-01-18 05:51:00 Test Item Value Reference Range Interpretation Comments Mean Corpuscular Volume (test code = 90.1 80-100 Mean Corpuscular Volume) [facility]2018-01-18 05:51:00 Test Item Value Reference Range Interpretation Comments Mean Corpuscular Hemoglobin Concent 33.3 32.0-36.0 (test code = Mean Corpuscular Hemoglobin Concent) [facility]2018-01-18 05:51:00 Test Item Value Reference Range Interpretation Comments Mean Corpuscular Hemoglobin (test 30.0 pg 27.0-35.0 code = Mean Corpuscular Hemoglobin) [facility]2018-01-18 05:51:00 Test Item Value Reference Range Interpretation Comments Lymphocytes % (test code = Lymphocytes 16.6 15.3-44.8 %) [facility]2018-01-18 05:51:00 Test Item Value Reference Range Interpretation Comments Hemoglobin (test code = Hemoglobin) 12.5 12.0-15.0 [facility]2018-01-18 05:51:00 Test Item Value Reference Range Interpretation Comments Hematocrit (test code = Hematocrit) 37.5 36.0-45.0 [facility]2018-01-18 05:51:00 Test Item Value Reference Range Interpretation Comments Eosinophils % (test code 1.4 See_Comment [A utomated message] The = Eosinophils %) system [facility] h generated this result tra nsmitted reference range : <=4.4. The reference r jayleen was not used to int erpret this result as normal/abnormal . [facility]2018-01-18 05:51:00 Test Item Value Reference Range Interpretation Comments Basophils % (test code 0.5 See_Comment [Aut omated message] The = Basophils %) system which generated this result tra nsmitted reference range : <=1.3. The reference r jayleen was not used to int erpret this result as normal/abnormal . [facility]2018-01-18 05:51:00 Test Item Value Reference Range Interpretation Comments Absolute Neutrophil (test code = 6.7 1.8-8.0 Absolute Neutrophil) [facility]2018-01-18 05:51:00 Test Item Value Reference Range Interpretation Comments Absolute Monocytes (CBC) (test code = 0.9 0.1-1.3 Absolute Monocytes (CBC)) [facility]2018-01-18 05:51:00 Test Item Value Reference Range Interpretation Comments Absolute Lymphocytes (CBC) (test code = 1.6 0.7-4.9 Absolute Lymphocytes (CBC)) [facility]2018-01-18 05:51:00 Test Item Value Reference Range Interpretation Comments Absolute Eosinophils 0.1 See_Comment [Autom ated message] The (CBC) (test code = system wh ich generated Absolute Eosinophils this re sult transmitted (CBC)) reference range : <=0.5. The reference r jayleen was not used to int erpret this result as normal/abnormal . [facility]2018-01-18 05:51:00 Test Item Value Reference Range Interpretation Comments Absolute Basophils 0.0 See_Comment [Automat ed message] The (CBC) (test code = system wh ich generated Absolute Basophils this resu lt transmitted (CBC)) reference range : <=0.5. The reference r jayleen was not used to int erpret this result as normal/abnormal . [facility]2018-01-18 05:51:00 Test Item Value Reference Range Interpretation Comments Parathyroid Hormone (Intact) (test code 64 12-88 = Parathyroid Hormone (Intact)) [facility]2018-01-18 05:51:00 Test Item Value Reference Range Interpretation Comments Hemoglobin A1c (test code = Hemoglobin 8.6 4-6.0 A1c) [facility]2018-01-18 05:51:00 Test Item Value Reference Range Interpretation Comments Thyroid Stimulating Hormone (TSH) (test 0.75 0.34-5.60 code = Thyroid Stimulating Hormone (TSH)) [facility]2018-01-18 05:51:00 Test Item Value Reference Range Interpretation Comments White Blood Count (test code = White 9.3 4.3-10.9 Blood Count) [facility]2018-01-18 05:51:00 Test Item Value Reference Range Interpretation Comments Red Cell Distribution Width (test code 13.7 12.1-15.2 = Red Cell Distribution Width) [facility]2018-01-18 05:51:00 Test Item Value Reference Range Interpretation Comments Red Blood Count (test code = Red Blood 4.16 3.86-4.86 Count) [facility]2018-01-18 05:51:00 Test Item Value Reference Range Interpretation Comments Platelet Count (test code = Platelet 233 152-406 Count) [facility]2018-01-18 05:51:00 Test Item Value Reference Range Interpretation Comments Neutrophils % (test code = Neutrophils 71.9 41.7-73.7 %) [facility]2018-01-18 05:51:00 Test Item Value Reference Range Interpretation Comments Monocytes % (test code = Monocytes %) 9.6 3.3-12.3 [facility]2018-01-17 01:35:00 Test Item Value Reference Range Interpretation Comments Urine Specific [place] (test code = 1.020 1 Urine Specific [place]) [facility] [id number] 01:35:00 Test Item Value Reference Range Interpretation Comments Urine Test Urine Test (test code = Urine Test) [facility]2018-01-17 01:34:00 Test Item Value Reference Range Interpretation Comments Urine pH (test code = Urine pH) 6.0 1 [facility]2018-01-17 01:34:00 Test Item Value Reference Range Interpretation Comments Urine Total Protein (test Urine Total Protein code = Urine Total Protein) [facility]2018-01-17 01:34:00 Test Item Value Reference Range Interpretation Comments Urine Nitrite (test code = Urine Nitrite Urine Nitrite) [facility]2018-01-17 01:34:00 Test Item Value Reference Range Interpretation Comments Urine Leukocyte Urine Leukocyte Esterase (test code = Esterase Urine Leukocyte Esterase) [facility]2018-01-17 01:34:00 Test Item Value Reference Range Interpretation Comments Urine Ketones (test code = Urine Ketones Urine Ketones) [facility]2018-01-17 01:34:00 Test Item Value Reference Range Interpretation Comments Urine Glucose (test code = Urine Glucose Urine Glucose) [facility]2018-01-17 01:34:00 Test Item Value Reference Range Interpretation Comments Urine Blood (test code = Urine Urine Blood Blood) [facility]2018-01-16 20:10:00 Test Item Value Reference Range Interpretation Comments Procalcitonin (test code = 0.77 Procalcitonin) [facility]2018-01-16 20:10:00 Test Item Value Reference Range Interpretation Comments Segmented Neutrophils (test code = 81 40-80 Segmented Neutrophils) [facility]2018-01-16 20:10:00 Test Item Value Reference Range Interpretation Comments Reactive Lymphocytes (test code = 2 Reactive Lymphocytes) [facility]2018-01-16 20:10:00 Test Item Value Reference Range Interpretation Comments Monocytes (test code = 6 See_Comment [Aut omated message] The Monocytes) system which ge nerated this result tra nsmitted reference range : <=10. The reference r jayleen was not used to int erpret this result as normal/abnormal . [facility]2018-01-16 20:10:00 Test Item Value Reference Range Interpretation Comments Lymphocytes (test code = Lymphocytes) 8 15-42 [facility]2018-01-16 20:10:00 Test Item Value Reference Range Interpretation Comments Blood Morphology Blood Morphology Comment (test code = Comment Blood Morphology Comment) [facility]2018-01-16 20:10:00 Test Item Value Reference Range Interpretation Comments Band Neutrophils (test 3 See_Comment [Aut omated message] The code = Band Neutrophils) sys tem which generated this result tra nsmitted reference range : <=1. The reference r jayleen was not used to int erpret this result as normal/abnormal . [facility]2018-01-16 20:10:00 Test Item Value Reference Range Interpretation Comments Direct Bilirubin (test 0.2 See_Comment [Aut omated message] The code = Direct system which g enerated Bilirubin) this result tra nsmitted reference range : <=0.2. The reference r jayleen was not used to int erpret this result as normal/abnormal . [facility]2018-01-16 20:10:00 Test Item Value Reference Range Interpretation Comments Lipase (test code = Lipase) [facility]2017-12-21 04:19:00 Test Item Value Reference Range Interpretation Comments Triglycerides Level (test code = 154 35-160 Triglycerides Level) [facility]2017-12-21 04:19:00 Test Item Value Reference Range Interpretation Comments LDL Cholesterol, Calculated (test code 173 1 = LDL Cholesterol, Calculated) [facility]2017-12-21 04:19:00 Test Item Value Reference Range Interpretation Comments HDL Cholesterol (test code = HDL 41 29-89 Cholesterol) [facility]2017-12-21 04:19:00 Test Item Value Reference Range Interpretation Comments Cholesterol/HDL Ratio (test code = 5.98 1 Cholesterol/HDL Ratio) [facility]2017-12-21 04:19:00 Test Item Value Reference Range Interpretation Comments Cholesterol Level (test code = 245 Cholesterol Level) [facility]2017-12-20 23:00:00 Test Item Value Reference Range Interpretation Comments Creatine Kinase MB (test code = 0.6 0.3-4.0 Creatine Kinase MB) [facility] [id number] 23:00:00 Test Item Value Reference Range Interpretation Comments Creatine Kinase (test code = Creatine 29 22-269 Kinase) [facility]2017-12-20 23:00:00 Test Item Value Reference Range Interpretation Comments Troponin I (test code = Troponin I) no gt [facility]2017-12-20 17:59:00 Test Item Value Reference Range Interpretation Comments B-Type Natriuretic Peptide (test code = 137 B-Type Natriuretic Peptide) [facility]2017-12-20 17:59:00 Test Item Value Reference Range Interpretation Comments Magnesium Level (test code = Magnesium 1.7 1.8-2.5 Level) [facility]2017-12-20 17:59:00 Test Item Value Reference Range Interpretation Comments Rapid Troponin I (test code = Rapid no gt Troponin I) [facility]2017-12-20 17:59:00 Test Item Value Reference Range Interpretation Comments Prothrombin Time (test code = 10.4 9.5-12.5 Prothrombin Time) [facility]2017-12-20 17:59:00 Test Item Value Reference Range Interpretation Comments INR International Normalized Ratio 0.88 1 (test code = INR International Normalized Ratio) [facility]2017-12-20 17:59:00 Test Item Value Reference Range Interpretation Comments Activated Partial Thromboplast Time 29.4 24.3-36.9 (test code = Activated Partial Thromboplast Time) [facility] 5 LEIDEN PCR (THROMBOTIC RISK)2017-03-24 19:24:00 Test Item Value Reference Range Interpretation Comments FACTOR V LEIDEN Negative for the R506Q (BEAKER) (test code = (Factor V Leiden) 718) mutation [id number] Martínez Wang MD (BEAKER) (test code = (electronic signature) 5308) This test is a genotyping assay which [...] developed and its performance characteristics determined bythe [facility], Section of Molecular Pathology. It has not been cleared or approved by the U.S. Food and Drug Administration (FDA), since FDA approval is not requ ired for clinical use of the test. Validation was done as required by the Clinical Laboratory Improvement Amendments of 1988.POCT-GLUCOSE [id number] 07:28:00 Test Item Value Reference Range Interpretation Comments POC-GLUCOSE METER 200 mg/dL 70-110 H TESTED AT [facility] ([facility]) (test code = [address] [place] 1538) [address] POCT-GLUCOSE [id number] 21:18:00 Test Item Value Reference Range Interpretation Comments POC-GLUCOSE METER 211 mg/dL 70-110 H TESTED AT [facility] ([facility]) (test code = [facility] Isabel [facility] 1538) [address] PROTEIN, RANDOM [id number] 19:43:00 Test Item Value Reference Range Interpretation Comments PROTEIN, URINE (BEAKER) (test code 286 mg/dL 0-14 H = 1569) CREATININE, RANDOM [id number] 18:27:00 Test Item Value Reference Range Interpretation [...] Normal Hexagonal (BEAKER) (test code = Phospholipid 719372) [id number] Martínez Wang MD (BEAKER) (test code = (electronic 2610) signature) DRVV SCREEN RATIO 0.84 <1.20 (BEAKER) (test code = 2707) Effective 12/20/2013: Test Method ChangeDRVV Screen Ratio, DRVV 1/1 Screen Ratio, DRVV Confirm Ratio,DRVV Normalized Ratio Reference Range: <1.2Protime Reference Range ChangeNew: 11.7-14.7 Previous: 9.8-12.0PTT Reference Range ChangeNew: 22.5-36.0 Previous: 25.8-34.5URINE [id number] 11:40:00 Test Item Value Reference Range Interpretation Comments CULTURE (BEAKER) (test 20-29,000 col/mL skin code = 1095) lei POCT-GLUCOSE [id number] 08:33:00 Test Item Value Reference Range Interpretation Comments POC-GLUCOSE METER 293 mg/dL 70-110 H TESTED AT [facility] (BEAKER) (test code = [address] [place] 1538) [address] VITAMIN D, [id number] 07:49:00 Test Item Value Reference Range Interpretation Comments VITAMIN D 25-OH (BEAKER) (test code = < ng/mL 13.0-47.8 L 2764) CBC W/PLT COUNT & AUTO [id number] 05:59:00 Test Item Value Reference Range Interpretation [...] (BEAKER) (test code = 2801) BASIC METABOLIC [id number] 05:38:00 Test Item Value Reference Range Interpretation [...] S NOT APPLICABLE FOR DIALYSIS PATIEN TS. [id number] 05:37:00 Test Item Value Reference Range Interpretation Comments PHOSPHORUS (BEAKER) (test code = 4.1 mg/dL 2.3-4.7 604) [id number] 05:37:00 Test Item Value Reference Range Interpretation Comments MAGNESIUM (BEAKER) (test code = 1.7 mg/dL 1.6-2.6 627) PTH, [id number] 05:34:00 Test Item Value Reference Range Interpretation Comments PARATHYROID HORMONE INTACT 57.2 pg/mL 8.5-72.5 (BEAKER) (test code = 577) Effective 07/04/2014: Reference Range ChangeNew: 8.5-72.5 Previous: 15.0-90.0 CARDIOLIPIN ANTIBODIES, IGG AND [id number] 22:36:00 Test Item Value Reference Range Interpretation Comments ANTICARDIOLIPIN IGG ANTIBODY (BEAKER) < GPL (test code = 712) ANTICARDIOLIPIN IGM ANTIBODY ([facility]) 2.8 MPL (test code = 713) Anticardiolipin IgG Result Interpretation:NEG: <20 GPL; U/mlPOS: >/=20 GPL; U/mlAnticardiolipin IgM Result Interpretation:NEG: <20 MPL; U/mlPOS: >/=20 MPL; U/mlPOCT-GLUCOSE [id number] 21:25:00 Test Item Value Reference Range Interpretation Comments POC-GLUCOSE METER 198 mg/dL 70-110 H TESTED AT [facility] ([facility]) (test code = [address] [facility] 1538) [address] POCT-GLUCOSE [id number] 16:29:00 Test Item Value Reference Range Interpretation Comments POC-GLUCOSE METER 296 mg/dL 70-110 H TESTED AT [facility] [address] ([facility]) (test [facility] = [facility] 1538) [address] ANTI-NUCLEAR ANTIBODY (MARY)2017-03-18 15:30:00 Test Item Value Reference Range Interpretation Comments ANTI-NUCLEAR ANTIBODY (MARY) (BEAKER) Negative Negative (test code = 418) HEXAGONAL [id number] 13:21:00 Test Item Value Reference Range Interpretation Comments HEXAGONAL PHOSPHOLIPID (BEAKER) Negative (test code = 1790) POCT-GLUCOSE [id number] 12:15:00 Test Item Value Reference Range Interpretation Comments POC-GLUCOSE METER 140 mg/dL 70-110 H TESTED AT [facility] [address] ([facility]) (test code = [facility] Isabel [facility] 1538) [address] PROTEIN C [id number] 11:44:00 Test Item Value Reference Range Interpretation Comments PROTEIN C ACTIVITY (BEAKER) (test 155.0 % 70.0-130.0 H code = 582) Effective 12/20/2013: Reference Range Change-Adult onlyNew: 70.0-130.0 Previous: 70.0-140.0See Protein C Antigen.ANTITHROMBIN [id number] 11:43:00 Test Item Value Reference Range Interpretation Comments ANTITHROMBIN III ACTIVITY ([facility]) 87.0 % 80.0-120.0 (test code = 711) Effective 12/20/2013: Reference Range Change-Adult onlyNew: 80.0-120.0 Previous: 90.0-128.0POCT-GLUCOSE [id number] 08:17:00 Test Item Value Reference Range Interpretation Comments POC-GLUCOSE METER 107 mg/dL 70-110 TESTED AT [place] [address] ([facility]) (test code = [facility] 1538) [address] BASIC METABOLIC [id number] 06:32:00 Test Item Value Reference Range Interpretation [...] PATIEN TS. CBC W/PLT COUNT & AUTO [id number] 05:56:00 Test Item Value Reference Range Interpretation [...] PERCENT (BEAKER) (test code = 2801) POCT-GLUCOSE [id number] 04:32:00 Test Item Value Reference Range Interpretation Comments POC-GLUCOSE METER 107 mg/dL 70-110 TESTED AT [place] [address] ([facility]) (test code = [address] [facility] 1538) [address] POCT-GLUCOSE [id number] 22:21:00 Test Item Value Reference Range Interpretation Comments POC-GLUCOSE METER 118 mg/dL 70-110 H TESTED AT [place] [address] ([facility]) (test code = [facility] Isabel [facility] 1538) [address] POCT-GLUCOSE [id number] 21:22:00 Test Item Value Reference Range Interpretation Comments POC-GLUCOSE METER 52 mg/dL 70-110 L Notified R Jia REYNOSO/TESTED AT ([facility]) (test code = [address] 15[address]) [facility] [address] MICROALBUMIN, RANDOM [id number] 17:57:00 Test Item Value Reference Range Interpretation Comments MICROALBUMIN URINE (BEAKER) (test > mg/dL code = 1794) Reference Range: No NormalsURINALYSIS W/ [id number] 17:36:00 Test Item Value Reference Range Interpretation [...] 516) SOURCE(BEAKER) (test code = Urine, Voided 5400) SCREEN, [id number] 17:36:00 Test Item Value Reference Range Interpretation Comments TEST URINE (BEAKER) (test Negative code = 583) CREATININE, RANDOM [id number] 17:35:00 Test Item Value Reference Range Interpretation Comments CREATININE URINE (BEAKER) (test 33.9 mg/dL code = 375) Reference Range: No NormalsSODIUM, RANDOM [id number] 17:35:00 Test Item Value Reference Range Interpretation Comments SODIUM URINE (BEAKER) (test code = 63 meq/L 243) Reference Range: No NormalsPOCT-GLUCOSE [id number] 17:34:00 Test Item Value Reference Range Interpretation Comments POC-GLUCOSE METER 118 mg/dL 70-110 H TESTED AT [place] [address] ([facility]) (test code = [facility] 1538) [address] POCT-GLUCOSE [id number] 13:28:00 Test Item Value Reference Range Interpretation Comments POC-GLUCOSE METER 71 mg/dL 70-110 TESTED AT [place] [address] ([facility]) (test code = [facility] Isabel [facility] [id number]) POCT-GLUCOSE [id number] 10:37:00 Test Item Value Reference Range Interpretation Comments POC-GLUCOSE METER 144 mg/dL 70-110 H TESTED AT [place] [address] ([facility]) (test code = [facility] Isabel [facility] 1538) [address] POCT-GLUCOSE [id number] 07:18:00 Test Item Value Reference Range Interpretation Comments POC-GLUCOSE METER 60 mg/dL 70-110 L TESTED AT [place] [address] ([facility]) (test code = [facility] Isabel [facility] [address]38) CBC W/PLT COUNT & AUTO [id number] 05:51:00 Test Item Value Reference Range Interpretation [...] (BEAKER) (test code = 2801) BASIC METABOLIC [id number] 05:51:00 Test Item Value Reference Range Interpretation [...] NOT APPLICABLE FOR DIALYSIS PATIEN TS. POCT-GLUCOSE [id number] 21:41:00 Test Item Value Reference Range Interpretation Comments POC-GLUCOSE METER 287 mg/dL 70-110 H TESTED AT [facility] (BEAKER) (test code = [place] [place] 1538) [address] BASIC METABOLIC [id number] 12:35:00 Test Item Value Reference Range Interpretation [...] report . CBC W/PLT COUNT & AUTO [id number] 04:54:00 Test Item Value Reference Range Interpretation [...] 0-1 PERCENT (BEAKER) (test code = 2801) [id number] 20:17:00 Test Item Value Reference Range Interpretation Comments RPR SCREEN (BEAKER) (test code = Nonreactive Nonreactive 420) POCT-GLUCOSE [id number] 18:09:00 Test Item Value Reference Range Interpretation Comments POC-GLUCOSE METER 215 mg/dL 70-110 H TESTED AT [facility] 67[address] (BEAKER) (test code = [place] [place] 1538) [address] CBC W/PLT COUNT & AUTO [id number] 11:54:00 Test Item Value Reference Range Interpretation [...] (BEAKER) (test code = Normal 762) SEDIMENTATION [id number] 10:27:00 Test Item Value Reference Range Interpretation Comments SEDIMENTATION RATE, ERYTHROCYTE 79 mm/HR 0-20 H (BEAKER) (test code = 766) HEMOGLOBIN [id number] 09:33:00 Test Item Value Reference Range Interpretation Comments HEMOGLOBIN A1C (BEAKER) (test code = 9.8 % 4.3-6.1 H 368) VITAMIN [id number] 09:14:00 Test Item Value Reference Range Interpretation Comments VITAMIN B12 (BEAKER) (test code = 1790 pg/mL 213-816 H 774) TSH/FREE T4 IF [id number] 09:14:00 Test Item Value Reference Range Interpretation Comments THYROID STIMULATING HORMONE 1.08 uIU/mL 0.35-4.94 (BEAKER) (test code = 772) BASIC METABOLIC [id number] 08:52:00 Test Item Value Reference Range Interpretation [...] DATA TO CALCULA TE ESTIMATED GFR. FastingLIPID [id number] 08:51:00 Test Item Value Reference Range Interpretation [...] High 160-189 Very High >=190 FastingHCG, QUANTITATIVE, [id number] 01:43:00 Test Item Value Reference Range Interpretation Comments GONADOTROPIN, CHORIONIC (HCG) QUANT < mIU/mL 0-10 (BEAKER) (test code = 649) Non- Females: <10 mIU/mL Females: Gestation Age Reference Range(mIU/mL) 0.2-1 Week 5-50 1-2 Weeks 50-500 2-3 Weeks 100-5,000 3-4Weeks 500-10,000 4-5 Weeks 1,000-50,000 5-6 Weeks 10,000-100,000 6-8 Weeks 15,000-200,000 2-3 Months 10,000-100,000COMPREHENSIVE METABOLIC [id number] 21:57:00 Test Item Value Reference Range Interpretation [...] O CALCULATE ESTIM ATED GFR. Unit CollectPOCT-GLUCOSE [id number] 21:50:00 Test Item Value Reference Range Interpretation Comments POC-GLUCOSE METER 278 mg/dL 70-110 H TESTED AT [facility] 67[address] ([facility]) (test code = [place] [place] 1538) [address]
--- NOTE | 2022-01-13 11:32 | RAD REPORT ---
EXAM DESCRIPTION: Gen Single View01/13/2022 11:27 am CLINICAL HISTORY: Hypoglycemia COMPARISON: November 2021 FINDINGS: The lungs appear clear of acute infiltrate. The heart is normal size IMPRESSION: No acute abnormalities displayed
[2022-01-13 11:56] LABS: Protime INR 0.9
[2022-01-13 12:26] LABS: Potassium 5.4 mmol/L (3.5-5.1)
[2022-01-13 12:27] LABS: Albumin 2.7 g/dL (3.4-5.0); Bilirubin Direct 0.2 mg/dL (0-0.2); Bilirubin Total 0.6 mg/dL (0.2-1.0); Magnesium 2.3 mg/dL (1.8-2.4); Protein, Total 7.1 g/dL (6.4-8.2); Troponin High Sensitivity 11.4 pg/mL (<58.9)
--- NOTE | 2022-01-13 14:52 | EDPHYS ---
Physician Documentation [facility] Name: Archana Woo Age: 46 yrs Sex: Female : 1975 Arrival Date: 01/13/2022 Time: 10:59 Bed 14 Private MD: ED Physician Delfino Mcdermott HPI: 01/13 11:05 This 46 yrs old Female presents to ER via EMS with complaints of Hypoglycemia. cp 11:05 The patient or guardian reports hypoglycemia. Onset: The symptoms/episode cp began/occurred today. Associated signs and symptoms: Pertinent positives: nausea, altered mental status, Pertinent negatives: vomiting, fver. Current symptoms: In the emergency department the patient's symptoms have improved, moderately. Patient is a resident of [facility]. EMS called out for patient being unresponsive. Patient found to have blood glucose level in 20's. EMS placed IO to left lower leg and D10 administered. Patient now alert times 3, complains pain to left lower leg. Historical: - Allergies: 11:09 Zestoretic; jh6 - PMHx: 11:09 BLIND; CVA; Depression; Diabetes - NIDDM; DIALYSIS MWF; dialysis W \\T\\ F; GERD; jh6 Hyperlipidemia; Hypertension; left arm paralysis; neuropathy; THYROID CANCER; TIA; - PSHx: 11:09 right AKA; jh6 - Immunization history:: Adult Immunizations up to date. - Social history:: Smoking status: Patient/guardian denies using tobacco. ROS: 11:08 Constitutional: Negative for body aches, chills, fever, poor PO intake. cp 11:08 Eyes: Negative for injury, pain, redness, and discharge. cp 11:08 ENT: Negative for drainage from ear(s), ear pain, sore throat, difficulty swallowing, difficulty handling secretions. 11:08 Cardiovascular: Negative for chest pain. 11:08 Respiratory: Negative for cough, shortness of breath, wheezing. 11:08 Abdomen/GI: Negative for vomiting, diarrhea, constipation. 11:08 MS/extremity: Positive for pain, of the left lower leg. 11:08 Neuro: Negative for headache. 11:08 All other systems are negative. Exam: 11:10 Constitutional: The patient appears alert, awake, non-diaphoretic, non-toxic, well cp developed, well nourished. 11:10 Head/Face: Normocephalic, atraumatic. cp 11:10 Eyes: Periorbital structures: appear normal, Conjunctiva: normal, no exudate, no injection, Sclera: no appreciated abnormality, Lids and lashes: appear normal, bilaterally. 11:10 ENT: External ear(s): are unremarkable, Nose: is normal, Mouth: Lips: moist, Oral mucosa: pink and intact, moist, Posterior pharynx: Airway: no evidence of obstruction, patent. 11:10 Neck: ROM/movement: is normal, is supple, without pain, no range of motions limitations. 11:10 Chest/axilla: Inspection: normal, Palpation: is normal, no crepitus, no tenderness. 11:10 Cardiovascular: Rate: tachycardic, Rhythm: regular, Edema: is not appreciated, JVD: is not appreciated. 11:10 Respiratory: the patient does not display signs of respiratory distress, Respirations: normal, no use of accessory muscles, no retractions, labored breathing, is not present, Breath sounds: stridor, is not appreciated, wheezing: is not appreciated. 11:10 Abdomen/GI: Inspection: abdomen appears normal, Palpation: abdomen is soft and non-tender, in all quadrants. 11:10 Musculoskeletal/extremity: right side BKA. 11:10 Neuro: Orientation: to person, place \\T\\ time. Mentation: able to follow commands, slow to respond. 11:30 ECG was reviewed by the Attending Physician. cp Vital Signs: 11:05 BP 179 / 82; Pulse 101; Resp 18; Temp 97.6(O); Pulse Ox 100% ; Weight 74.84 kg; Height jh6 5 ft. 5 in. (165.10 cm); Pain 4/10; 11:46 BP 179 / 82; Pulse 100; Resp 18; Pulse Ox 100% ; Pain 5/10; jh6 13:47 BP 171 / 73; Pulse 94; Resp 16; Pulse Ox 94% ; Pain 4/10; jh6 11:05 Body Mass Index 27.46 (74.84 kg, 165.10 cm) jh6 Procedures: 13:00 Peripheral line: by aseptic technique a peripheral line was placed in the left external cp jugular vein. MDM: 11:03 Patient medically screened. cp 11:12 ED course: IO in place and infusing fluids proximal left medial tibia. cp 11:40 Differential diagnosis: DKA, hyperglycemia, hypoglycemic episode, sepsis, electrolyte cp abnormality. 14:00 Data reviewed: vital signs, nurses notes, lab test result(s), EKG, radiologic studies, cp plain films, I have discussed the patient's presentation/case with the attending Emergency Department Physician; and as a result, I will admit patient. 14:00 Test interpretation: by ED physician or midlevel provider: ECG, plain radiologic cp studies. 14:20 Physician consultation: Everett Chan MD was contacted at 14:30, regarding admission, cp to the telemetry unit. patient's condition. 01/13 11:02 Order name: Basic Metabolic Panel; Complete Time: 13:46 cp 01/13 13:46 Interpretation: Normal except: K 5.4; ANION GAP 15.4; GLUC 154; BUN 43; CRE 6.43; GFR 8.cp 01/13 11:02 Order name: CBC with Diff cp 01/13 11:02 Order name: LFT's; Complete Time: 13:46 cp 01/13 13:46 Interpretation: Normal except: ALK 223; ALB 2.7; GLOB 4.4; A/G 0.6. cp 01/13 11:02 Order name: Magnesium; Complete Time: 13:46 cp 01/13 11:02 Order name: NT PRO-BNP; Complete Time: 13:46 cp 01/13 13:47 Interpretation: Abnormal: NT PRO-BNP 4569. cp 01/13 11:02 Order name: PT-INR; Complete Time: 13:46 cp 01/13 11:02 Order name: Troponin HS; Complete Time: 13:46 cp 01/13 11:13 Order name: Glucose, Ancillary Testing; Complete Time: 11:42 EDMS 01/13 11:44 Order name: Blood Culture Adult (2) cp 01/13 11:44 Order name: Procalcitonin; Complete Time: 13:46 cp 01/13 11:44 Order name: Lactate; Complete Time: 13:46 cp 01/13 13:43 Order name: Glucose, Ancillary Testing; Complete Time: 13:46 EDMS 01/13 16:02 Order name: SARS-COV-2 RT PCR (Document "Date of Onset" if Symptomatic) 01/13 17:16 Order name: CBC with Automated Diff EDMS 01/13 11:02 Order name: XRAY Chest (1 view); Complete Time: 11:42 01/13 11:02 Order name: EKG; Complete Time: 11:03 01/13 11:02 Order name: Cardiac monitoring; Complete Time: 11:28 01/13 11:02 Order name: EKG - Nurse/Tech; Complete Time: 11:28 01/13 11:02 Order name: IV Saline Lock; Complete Time: 11: 01/13 11:02 Order name: Labs collected and sent; Complete Time: 11: 01/13 11:02 Order name: O2 Per Protocol; Complete Time: 11: 01/13 11:02 Order name: O2 Sat Monitoring; Complete Time: 11: 01/13 13:47 Order name: Accucheck Blood Glucose 01/13 17:16 Order name: Renal EDIL 01/13 17:16 Order name: CBC with Automated Diff EDMS 01/13 17:16 Order name: Comprehensive Metabolic Panel EDIL 01/13 17:16 Order name: Comprehensive Metabolic Panel EDIL 01/13 17:27 Order name: CONS Physician Consult EDIL 01/13 17:29 Order name: Hemoglobin A1c EDIL 01/13 18:12 Order name: Glucose, Ancillary Testing EDMS EC:30 Rate is 98 beats/min. Rhythm is regular. AR interval is normal. QRS interval is normal. cp QT interval is normal. Interpreted by me. Reviewed by me. Administered Medications: No medications were administered Disposition: 21:24 Co-signature as Attending Physician, Delfino Mcdermott DO I was immediately available on-site ms3 in the Emergency Department for consultation in the care of the patient. . Disposition Summary: 01/13/22 14:51 Hospitalization Ordered Hospitalization Status: Observation cp Provider: Everett Chan cp Location: Telemetry/MedSurg (observation) cp Condition: Stable cp Problem: new cp Symptoms: have improved cp Bed/Room Type: Standard cp Room Assignment: 217(01/13/22 17:39) jaJohn Diagnosis - Hypoglycemia, unspecified cp Forms: - Medication Reconciliation Form cp - SBAR form cp Signatures: Dispatcher [employer] EDIL Zelalem Man PA PA cp Aguilar, Jose RN RN ja1 Delfino Mcdermott DO DO ms3 Elissa Ca, RN RN jh6 Corrections: (The following items were deleted from the chart) 17:39 14:51 cp andi
--- NOTE | 2022-01-13 14:52 | ER ---
Nurse's Notes [facility] Name: Archana Woo Age: 46 yrs Sex: Female : 1975 Arrival Date: 01/13/2022 Time: 10:59 Bed 14 Private MD: Diagnosis: Hypoglycemia, unspecified Presentation: 01/13 11:05 Chief complaint: EMS states: EMS called out for low blood sugar of 20 at care home. [facility] care home gave Glucagon 2mg IM and EMS started an IO to l tibia. 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 pt more alert now c/o slight nausea. Coronavirus screen: Vaccine status: Patient reports receiving the 2nd dose of the covid vaccine. Ebola Screen: Patient negative for fever greater than or equal to 101.5 degrees Fahrenheit, and additional compatible Ebola Virus Disease symptoms Patient denies exposure to infectious person. Patient denies travel to an Ebola-affected area in the 21 days before illness onset. Initial Sepsis Screen: Does the patient meet any 2 criteria? No. Patient's initial sepsis screen is negative. Does the patient have a suspected source of infection? No. Patient's initial sepsis screen is negative. Risk Assessment: Do you want to hurt yourself or someone else? Patient reports no desire to harm self or others. Onset of symptoms was January 13, 2022. 11:05 Method Of Arrival: EMS: [facility] 11:05 Acuity: TARUN 2 [facility] Triage Assessment: 11:09 General: Appears ill, Behavior is cooperative. Pain: Complains of pain in left shetty [facility] Pain currently is 6 out of 10 on a pain scale. Quality of pain is described as aching, sharp, Pain began suddenly, Is continuous, Aggravated by repositioning. Historical: - Allergies: 11:09 Zestoretic; jh6 - PMHx: 11:09 BLIND; CVA; Depression; Diabetes - NIDDM; DIALYSIS MWF; dialysis W \T\ F; GERD; 6 Hyperlipidemia; Hypertension; left arm paralysis; neuropathy; THYROID CANCER; TIA; - PSHx: 11:09 right AKA; 6 - Immunization history:: Adult Immunizations up to date. - Social history:: Smoking status: Patient/guardian denies using tobacco. Screenin:10 Abuse screen: Denies threats or abuse. Denies injuries from another. Nutritional jh6 screening: No deficits noted. Tuberculosis screening: No symptoms or risk factors identified. Fall Risk Secondary diagnosis (15 points) CVA, IV access (20 points). Assessment: 11:45 General: Appears in no apparent distress. see triage note. 6 13:44 Reassessment: Patient and/or family updated on plan of care and expected duration. Pain jh6 level reassessed. Patient is alert, oriented x 3, equal unlabored respirations, skin warm/dry/pink. Patient states feeling better. General: Appears in no apparent distress. Behavior is calm, cooperative. General: BS stale and pt has not complaints other than pain to IO that ems place captain waiter/waitress. . Neuro: Level of Consciousness is awake, alert, obeys commands, Oriented to person, place, time, situation. Vital Signs: 11:05 BP 179 / 82; Pulse 101; Resp 18; Temp 97.6(O); Pulse Ox 100% ; Weight 74.84 kg; Height [facility] 5 ft. 5 in. (165.10 cm); Pain 4/10; 11:46 BP 179 / 82; Pulse 100; Resp 18; Pulse Ox 100% ; Pain 5/10; jh6 13:47 BP 171 / 73; Pulse 94; Resp 16; Pulse Ox 94% ; Pain 4/10; jh6 11:05 Body Mass Index 27.46 (74.84 kg, 165.10 cm) 6 ED Course: 10:59 Patient arrived in ED. iw 11:00 Zelalem Man PA is PHCP. cp 11:00 Delfino Mcdermott DO is Attending Physician. cp 11:05 Elissa Ca, ARMOND is Primary Nurse. jh6 11:09 Triage completed. jh6 11:09 Patient placed in the treatment room, on a stretcher, on library monitor, on pulse 6 oximetry. 11:10 Placed in gown. Bed in low position. Call light in reach. Side rails up X2. jh6 11:28 EKG done, by ED staff, reviewed by Delfino Mcdermott DO. 5 11:29 XRAY Chest (1 view) In Process Unspecified. EDMS 11:42 Basic Metabolic Panel Sent. 5 11:42 CBC with Diff Sent. 5 11:42 LFT's Sent. 5 11:43 Magnesium Sent. mh5 11:43 NT PRO-BNP Sent. 5 11:43 PT-INR Sent. 5 11:43 Troponin HS Sent. 5 11:43 Initial lab(s) drawn, by ED staff, sent to lab. 5 11:46 Inserted saline lock: 20 gauge in left EJ, using aseptic technique. ,using aseptic [facility] technique. by jose man. 11:51 Basic Metabolic Panel Sent. [facility] 11:51 LFT's Sent. [facility] 11:51 Magnesium Sent. [facility] 11:51 NT PRO-BNP Sent. [facility] 11:51 PT-INR Sent. [facility] 11:51 Troponin HS Sent. [facility] 11:51 Procalcitonin Sent. [facility] 11:51 Blood Culture Adult (2) Sent. [facility] 12:45 IV discontinued, intact, bleeding controlled, No redness/swelling at site. Pressure 6 dressing applied, IO to l tibula D/C'd and bandage placed. no issues and pt tolerated well. 14:50 Everett Chan MD is Hospitalizing Provider. cp Administered Medications: No medications were administered Outcome: 14:51 Decision to Hospitalize by Provider. cp 18:30 Patient left the ED. [facility] Signatures: Dispatcher [employer] Margarita Lorenz, ARMOND RN Zelalem Crystal PA PA cp Martinez, Maria [facility] Elissa Ca RN RN [facility]
[2022-01-13 16:41] LABS: Hematocrit 39.9 % (36.0-45.0); Lymphocytes % 11.5 % (15.3-44.8); MPV 6.9 fL (7.6-11.3); RBC Red Blood Cell Count 4.08 M/uL (3.86-4.86)
[2022-01-13] MEDS ORDERED: MORPHINE 2 MG/ML SYR IV PRN (17:12)
[2022-01-13] MEDS ORDERED: ONDANSETRON 4 MG/2 ML VIAL IV PRN (17:12)
[2022-01-13] MEDS ORDERED: ACETAMINOPHEN 500 MG TAB PO PRN (17:12)
[2022-01-13] MEDS ORDERED: CODEINE 30MG/APAP 300MG TAB PO PRN (17:14)
[2022-01-13] MEDS ORDERED: LACTULOSE 20 GM/30 ML UCUP PO PRN (17:14)
[2022-01-13] MEDS ORDERED: MIDODRINE HCL 5 MG TABLET PO PRN (17:14)
[2022-01-13] MEDS ORDERED: D50W 25 GM/50 ML SYRINGE IV PRN (17:27)
[2022-01-13] MEDS ORDERED: NA CHLORIDE 0.9% 1,000 ML IV SCH (18:00)
[2022-01-13] MEDS ORDERED: D10W 125 ML IV PRN (18:02)
[2022-01-13] MEDS ORDERED: D5 0.9 NS 1,000 ML IV ONE (18:10)
[2022-01-13] MEDS ORDERED: DEXTROSE 10%-WATER 500 ML IV ONE (18:19)
[2022-01-13] MEDS ORDERED: DEXTROSE ORAL 40% 15 GM TUBE ONE (18:21)
[2022-01-13] MEDS ORDERED: DEXTROSE ORAL 40% 15 GM TUBE PO PRN (20:16)
--- NOTE | 2022-01-13 20:17 | P.HP ---
Certification for Inpatient Patient admitted to: Observation With expected LOS: <2 Midnights Patient will require the following post-hospital care: None Practitioner: I am a practitioner with admitting privileges, knowledge of patient current condition, hospital course, and medical plan of care. Services: Services provided to patient in accordance with Admission requirements found in Title 42 Section 412.3 of the Code of Federal Regulations Patient History Date of Service: 01/13/22 Reason for admission: Hypoglycemia History of Present Illness: Patient is a 46-year-old female who came to the hospital after having a hypoglycemic episode. Patient has been on Levemir. We will go ahead and stop the Levemir. Patient's A1c is 7.1. Patient was admitted for further treatment. Patient will need to hold off on any oral hypoglycemics. Discontinue Levemir. Short acting insulin going forward. Allergies No Known Allergies Allergy (Verified 05/09/21 01:12) Home Medications: Aspirin 81 mg PO DAILY 12/23/19 Clopidogrel Bisulfate [Plavix*] 75 mg PO DAILY tablet 05/09/21 Codeine/APAP [Tylenol #3*] 1 tab PO Q8HP PRN 05/09/21 Docusate Sodium [Stool Softener] 200 mg PO DAILY 05/09/21 Duloxetine HCl [Cymbalta] 60 mg PO BID 05/09/21 Levothyroxine [Synthroid*] 50 mcg PO [id number] 05/09/21 Melatonin 10 mg PO BEDTIME 05/09/21 Polyethyl Gly 3350 [Glycolax*] 17 gm PO TID 05/09/21 Sertraline [Zoloft*] 100 mg PO DAILY tab 05/09/21 Sevelamer Carbonate 2 packet PO TIDWM 05/09/21 cloNIDine HCL [Clonidine HCl] 0.1 mg PO BEDTIME 05/09/21 Ascorbic Acid [Vitamin C*] 500 mg PO DAILY 07/25/21 Atorvastatin Calcium [Lipitor*] 20 mg PO BEDTIME 07/25/21 Folic Acid/Vit B Complex and C [Libby-Guillermo Tablet] 0.8 mg PO DAILY 07/25/21 Gabapentin [Neurontin*] 400 mg PO M,W,F 07/25/21 Lactulose 20 gm PO DAILY PRN 07/25/21 Mirtazapine [Remeron] 30 mg PO BEDTIME 07/25/21 Patiromer Calcium Sorbitex [Veltassa] 8.4 gm PO DAILY 07/25/21 Zinc Sulfate [Zinc Sulfate*] 220 mg PO DAILY 07/25/21 Calcium Acetate [Phoslo] 667 mg PO AC #90 capsule 11/07/21 Midodrine HCl [Proamatine*] 5 mg PO EVERY HD PRN #30 tab 11/07/21 Na Bicarb Tab [Sodium Bicarb 325 MG Tab*] 650 mg PO BID #60 tab 11/07/21 Metoprolol Tartrate [Lopressor*] 0.5 tab PO BID 30 Days #30 tab 11/28/21 Insulin 70/30 NPH/Reg Human [Novolin *] 10 unit SQ AMB AD COREY #1 vial 01/14/22 - Past Medical/Surgical History Diabetic: Yes -: ESRD -: HTN -: Thyroid cancer -: Neuropathy -: Blind both eyes -: DM -: Neuropathy -: GERD -: ESRD -: hyperlipidemia -: CVA x3 -: Cholecystectomy -: Thyroidectomy -: Multiple eye surgeries -: -: HD graph left arm -: Right BKA -: right BKA Psychosocial/ Personal History: The patient is . She has 1 child. She is disabled. - Family History Father Notes: thyroid problems Brother Medical History: Hypertension - Social History Smoking Status: Former smoker Alcohol use: No CD- Drugs: No Caffeine use: No Review of Systems 10-point ROS is otherwise unremarkable Physical Examination - Vital Signs Temperature: 97.6 F Blood Pressure: 171/73 Pulse: 94 Respirations: 16 Pulse Ox (%): 98 - Physical Exam General: Alert, In no apparent distress, Oriented x3 HEENT: Atraumatic, PERRLA, Mucous membr. moist/pink, EOMI, Sclerae nonicteric Neck: Supple, 2+ carotid pulse no bruit, No LAD, Without JVD or thyroid abnormality Respiratory: Clear to auscultation bilaterally, Normal air movement Cardiovascular: Regular rate/rhythm, Normal S1 S2 Gastrointestinal: Normal bowel sounds, Soft and benign, Non-distended, No tenderness Musculoskeletal: No clubbing, No swelling, No tenderness Integumentary: No rashes Neurological: Normal gait, Normal speech, Normal strength at 5/5 x4 extr, Normal tone, Normal affect Lymphatics: No axilla or inguinal lymphadenopathy - Studies Laboratory Data (last 24 hrs) 01/13/22 16:30: WBC 17.0 H, Hgb 12.6, Hct 39.9, Plt Count 352 01/13/22 11:40: PT 9.9, INR 0.90 01/13/22 11:40: Sodium 136, Potassium 5.4 H, BUN 43 H, Creatinine 6.43 H*, Glucose 154 H, Magnesium 2.3, Total Bilirubin 0.6, AST 21, ALT 25, Alkaline Phosphatase 223 H Assessment & Plan - Problems (Diagnosis) (1) Hypoglycemia Status: Acute (2) Diabetes mellitus type 2 in nonobese Status: Acute (3) ESRD (end stage renal disease) Status: Acute (4) History of CVA (cerebrovascular accident) Status: Acute (5) NSTEMI (non-ST elevated myocardial infarction) Status: Acute (6) Obesity Status: Acute (7) COPD (chronic obstructive pulmonary disease) Onset Date: 03/03/17 Status: Chronic Qualifiers: (8) Diabetes mellitus Onset Date: 03/03/17 Status: Chronic Qualifiers: Diabetes mellitus type: type 2 (9) End-stage renal disease on hemodialysis Status: Chronic (10) History of CVA (cerebrovascular accident) Status: Chronic - Plan Plan: 1. Strict blood sugar control 2. Adjust diabetic meds 3. Hemodialysis per nephrology 4. Anticipate discharge in the morning. - Advance Directives Does patient have a Living Will: No Does patient have a Durable POA for Healthcare: No - Code Status/Comfort Care Code Status Assessed: Yes Code Status: Full Code Critical Care: No Time Spent Managing PTS Care (In Minutes): 45
[2022-01-13] MEDS: cloNIDine HCL 0.1 MG TAB PO SCH (21:00)
[2022-01-13] MEDS ORDERED: cloNIDine HCL 0.1 MG TAB PO SCH (21:00)
[2022-01-13] MEDS: POLYETHYL GLY 3350 17 GM/DOSE PO SCH (21:00)
[2022-01-13] MEDS ORDERED: MIRTAZAPINE 30 MG PO SCH (21:00)
[2022-01-13] MEDS: METOPROLOL TAR 25 MG TAB PO SCH (21:00)
[2022-01-13] MEDS: SODIUM BICARB 325 MG TAB PO SCH (21:00)
[2022-01-13] MEDS ORDERED: ATORVASTATIN 20 MG TAB PO SCH (21:00)
[2022-01-13] MEDS ORDERED: HOME MED 1 EA UNK (Duloxetine Hcl [Cymbalta] 60 MG Capsule.Dr) PO SCH (21:00)
[2022-01-13] MEDS ORDERED: MELATONIN 5 MG TABLET PO SCH (21:00)
--- NOTE | 2022-01-13 22:16 | CON ---
Date of Consultation: 01/13/2022 Chief Complaint: End-stage renal disease, hyperkalemia, fluid overload, and congestive heart failure exacerbation due to fluid overload. History Of Present Illness: The patient was transferred from senior living to the hospital because of hypoglycemia. The patient received D50 and subsequently blood glucose improved, although when gluco se was rechecked, the patient again was found to have hypoglycemia and is admitted to the hospital fo r treatment of hypoglycemia and to rule out sepsis. The patient has history of end-stage renal disea se. She has been treated with dialysis on Thursday, Thursday, and Thursday. The patient was found to h ave elevated BNP and hyperkalemia. Urgent dialysis was scheduled to treat fluid overload and provide management for congestive heart failure with diastolic dysfunction. The patient denies fever, chill s, nausea, or vomiting. Review of Systems: General: Denies fever or chills. Eyes: Denies vision changes. Ears, Nose, Mouth, and Throat: Denies sore throat or earache. Respiratory: The patient is bedbound. Denies PND or orthopnea. Cardiovascular: Denies chest pain or palpitations. GI: Denies nausea or vomiting. : Denies dysuria or hematuria. All other systems reviewed and all are negative. Past Medical History: End-stage renal disease, hemodialysis 3 times per week, thyroid cancer, periph eral neuropathy, diabetic neuropathy, retinopathy, nephropathy, diabetes mellitus insulin dependent, hyperlipidemia, CVA x3, cholecystectomy, thyroidectomy, multiple eye surgeries, , dialysis a ccess procedure, right BKA, thyroid problems, hypertension. Social History: Denies tobacco, alcohol, or illicit drugs. Physical Examination: General: The patient is awake, alert. Follows commands. Eyes: Anicteric sclerae. EOMI. Ears, Nose, and Throat: Oral mucosa moist. No pallor. Neck: Supple. No bruits. Lungs: Few crackles at base. Heart: S1, S2. Abdomen: Soft, benign. Nontender. No rebound. No guarding. Extremities: Edema present in both legs. Neurological: Moving extremities. Cranial nerves intact. Psychiatric: Alert and oriented x2. Laboratory Data: WBC 17,000, hemoglobin 12.6, platelet count 352,000. PTT 9.9, INR 0.9. Sodium 136 , potassium 5.4, BUN 43, creatinine 6.43, total bilirubin 0.6, magnesium 2.3. Impression: 1.End-stage renal disease. The patient will have urgent dialysis to treat hyperkalemia and to contr ol fluid overload. The patient was found to have hypoglycemia, likely this may represent hypoglycemi a secondary to sepsis. Blood cultures were obtained today and pending. 2.Diabetes mellitus with renal manifestation. Continue insulin. 3.Anemia due to chronic kidney disease. Hemoglobin level is satisfactory and plan is to hold LINWOOD. 4.Severe leukocytosis, for which workup is pending to rule out sepsis and plan is to start broad spe ctrum antibiotics when blood cultures are pending. 5.Peripheral neuropathy. Continue Neurontin. 6.Intradialytic hypotension. Continue midodrine for blood pressure support. 7.Renal osteodystrophy. Continue Renvela. Monitor phosphorus level. EB/MODL Voice ID: [id number] Report ID: [id number]
[2022-01-14 00:29] VITALS: O2SAT 96; BMI 27.4
--- NOTE | 2022-01-14 04:50 | P.PN ---
Subjective Date of Service: 01/14/22 Chief Complaint: Hypoglycemia Subjective: No new changes Physical Examination - Vital Signs Temperature: 97.6 F Blood Pressure: 99/59 Pulse: 87 Respirations: 16 Pulse Ox (%): 93 - Physical Exam General: In no apparent distress HEENT: Atraumatic, Normocephalic Neck: Supple, JVD not distended Respiratory: Other (Symmetric chest expansion) Cardiovascular: No rubs, No murmurs Gastrointestinal: Soft and benign, No rebound Musculoskeletal: No clubbing Integumentary: No warmth Neurological: Normal speech, Normal tone Urinary: Other (No bladder distention) External genitalia: Deferred Rectal: Deferred - Studies Laboratory Data (last 24 hrs) 01/13/22 16:30: WBC 17.0 H, Hgb 12.6, Hct 39.9, Plt Count 352 01/13/22 11:40: PT 9.9, INR 0.90 01/13/22 11:40: Sodium 136, Potassium 5.4 H, BUN 43 H, Creatinine 6.43 H*, Glucose 154 H, Magnesium 2.3, Total Bilirubin 0.6, AST 21, ALT 25, Alkaline Oren sphatase 223 H Assessment And Plan - Plan 1. End-stage renal disease. Received HD yesterday. Next HD tomorrow. 2. Diabetes mellitus with renal manifestation. Continue insulin. 3. Anemia due to chronic kidney disease. Hemoglobin level is satisfactory and plan is to hold LINWOOD. 4. Severe leukocytosis, for which workup is pending to rule out sepsis and plan is to start broad spectrum antibiotics when blood cultures are pending. 5. Peripheral neuropathy. Continue Neurontin. 6. Intradialytic hypotension. Continue midodrine for blood pressure support. 7. Renal osteodystrophy. Continue Renvela. Monitor phosphorus level.
[2022-01-14] MEDS ORDERED: LEVOTHYROXINE SOD 0.05 MG TABLET PO SCH (06:00)
[2022-01-14 06:34] LABS: Albumin 2.4 g/dL (3.4-5.0); Bilirubin Total 0.5 mg/dL (0.2-1.0); Potassium 5.1 mmol/L (3.5-5.1); Protein, Total 6.1 g/dL (6.4-8.2)
[2022-01-14] MEDS ORDERED: GLUCAGON 1 MG/VIAL IM PRN (06:45)
[2022-01-14] MEDS ORDERED: D50W 25 GM/50 ML SYRINGE IV PRN (06:45)
[2022-01-14] MEDS ORDERED: INSULIN 70/30 100 UNITS/ML SQ ONE (06:46)
[2022-01-14] MEDS ORDERED: SEVELAMER CARBONATE PO SCH (08:00)
[2022-01-14 08:17] LABS: Absolute Lymphocytes (CBC) 1.9 K/uL (0.7-4.9); Hematocrit 36.3 % (36.0-45.0); Lymphocytes % 25.1 % (15.3-44.8); MPV 7.4 fL (7.6-11.3); RBC Red Blood Cell Count 3.74 M/uL (3.86-4.86)
[2022-01-14] MEDS ORDERED: ASPIRIN 81 MG CHEWABLE TABLET PO SCH (09:00)
[2022-01-14] MEDS ORDERED: HOME MED 1 EA UNK (Insulin Detemir [Levemir] 100 UNIT/1 ML Ml) SQ SCH (09:00)
[2022-01-14] MEDS ORDERED: PATIROMER CALCIUM SORBITEX PO SCH (09:00)
[2022-01-14] MEDS ORDERED: ASCORBIC ACID 500 MG TABLET PO SCH (09:00)
[2022-01-14] MEDS ORDERED: CLOPIDOGREL 75 MG TABLET PO SCH (09:00)
[2022-01-14] MEDS: cloNIDine HCL 0.1 MG TAB PO SCH (09:00)
[2022-01-14] MEDS ORDERED: SERTRALINE HCL 100 MG TAB PO SCH (09:00)
[2022-01-14] MEDS ORDERED: DULOXETINE 30 MG CAP PO SCH (09:00)
[2022-01-14] MEDS: METOPROLOL TAR 25 MG TAB PO SCH (09:00)
[2022-01-14] MEDS ORDERED: MULTIVITAMINS,THERAPEUT 1 TAB PO SCH (09:00)
[2022-01-14] MEDS ORDERED: ZINC SULFATE 220 MG CAP PO SCH (09:00)
[2022-01-14] MEDS ORDERED: DOCUSATE NA 100 MG CAP PO SCH (09:00)
[2022-01-14] MEDS: POLYETHYL GLY 3350 17 GM/DOSE PO SCH ×2 (09:00→13:45)
[2022-01-14] MEDS: CALCIUM ACETATE 667 MG TAB PO SCH ×3 (09:28→16:57)
[2022-01-14] MEDS: SODIUM BICARB 325 MG TAB PO SCH (09:28)
[2022-01-14] MEDS: SEVELAMER CARBONATE 800 MG TABLET PO SCH ×2 (11:53→16:56)
--- NOTE | 2022-01-14 12:19 | EKG ---
Test Date: 2022-01-13 Test Time: 11:24:28 Barman: ROMA MEASUREMENT RESULTS: Intervals: Rate: 98 GA: 168 QRSD: 82 QT: 366 QTc: 467 Electra: P: 57 GA: 168 QRS: -7 T: 84 INTERPRETIVE STATEMENTS: Normal sinus rhythm Possible Left atrial enlargement Anterior infarct, age undetermined Abnormal ECG Compared to ECG 11/25/2021 12:48:58 ST (T wave) deviation no longer present Prolonged QT interval no longer present Myocardial infarct finding still present Electronically Signed On 01-14-22 12:16:43 CDT by Elder Tejeda
[2022-01-14] MEDS ORDERED: MIRTAZAPINE 15 MG TAB PO SCH (21:00)
[2022-01-15 06:36] VITALS: TEMP 97.6
[2022-01-15] MEDS ORDERED: GABAPENTIN 400 MG CAP PO SCH (09:00)
[2022-01-25 23:41] VITALS: BP 171/73
--- NOTE | 2022-01-25 23:42 | P.DS ---
Discharge Date: 01/14/22 Disposition: TRANSFER TO SNF - MEDICAL Discharge Condition: GOOD Reason for Admission: Hypoglycemia - Problems (1) Hypoglycemia Status: Acute (2) Diabetes mellitus type 2 in nonobese Status: Acute (3) ESRD (end stage renal disease) Status: Acute (4) History of CVA (cerebrovascular accident) Status: Acute (5) NSTEMI (non-ST elevated myocardial infarction) Status: Acute (6) Obesity Status: Acute (7) COPD (chronic obstructive pulmonary disease) Onset Date: 03/03/17 Status: Chronic Qualifiers: (8) Diabetes mellitus Onset Date: 03/03/17 Status: Chronic Qualifiers: Diabetes mellitus type: type 2 (9) End-stage renal disease on hemodialysis Status: Chronic (10) History of CVA (cerebrovascular accident) Status: Chronic Brief History of Present Illness: Patient is a 46-year-old female who came to the hospital after having a hypoglycemic episode. Patient has been on Levemir. We will go ahead and stop the Levemir. Patient's A1c is 7.1. Patient was admitted for further treatment. Patient will need to hold off on any oral hypoglycemics. Discontinue Levemir. Short acting insulin going forward. Hospital Course: Patient has done well during hospital stay. Clinically, patient is much better. At this time, patient is stable for discharge home. Patient will follow-up with consultants and PCP as an outpatient. Vital Signs/Physical Exam: Temp Pulse Resp BP Pulse Ox 97.6 F 94 H 16 171/73 H 98 01/25/22 23:40 01/25/22 23:40 01/25/22 23:40 01/25/22 23:40 01/25/22 23:40 General: Alert, In no apparent distress, Oriented x3 Laboratory Data at Discharge: WBC 7.4 K/uL (4.3-10.9) D 01/14/22 07:55 Hgb 11.8 g/dL (12.0-15.0) L 01/14/22 07:55 Hct 36.3 % (36.0-45.0) 01/14/22 07:55 Plt Count 293 K/uL (152-406) 01/14/22 07:55 PT 9.9 SECONDS (9.5-12.5) 01/13/22 11:40 INR 0.90 01/13/22 11:40 Sodium 133 mmol/L (136-145) L 01/14/22 06:00 Potassium 5.1 mmol/L (3.5-5.1) 01/14/22 06:00 BUN 28 mg/dL (7-18) H 01/14/22 06:00 Creatinine 4.60 mg/dL (0.55-1.3) H D 01/14/22 06:00 Glucose 463 mg/dL (74-106) H* 01/14/22 06:00 Magnesium 2.3 mg/dL (1.8-2.4) 01/13/22 11:40 Total Bilirubin 0.5 mg/dL (0.2-1.0) 01/14/22 06:00 AST 22 U/L (15-37) 01/14/22 06:00 ALT 24 U/L (12-78) 01/14/22 06:00 Alkaline Phosphatase 168 U/L (45-117) H 01/14/22 06:00 Home Medications: Aspirin 81 mg PO DAILY 12/23/19 Clopidogrel Bisulfate [Plavix*] 75 mg PO DAILY tablet 05/09/21 Codeine/APAP [Tylenol #3*] 1 tab PO Q8HP PRN 05/09/21 Docusate Sodium [Stool Softener] 200 mg PO DAILY 05/09/21 Duloxetine HCl [Cymbalta] 60 mg PO BID 05/09/21 Levothyroxine [Synthroid*] 50 mcg PO [id number] 05/09/21 Melatonin 10 mg PO BEDTIME 05/09/21 Polyethyl Gly 3350 [Glycolax*] 17 gm PO TID 05/09/21 Sertraline [Zoloft*] 100 mg PO DAILY tab 05/09/21 Sevelamer Carbonate 2 packet PO TIDWM 05/09/21 cloNIDine HCL [Clonidine HCl] 0.1 mg PO BEDTIME 05/09/21 Ascorbic Acid [Vitamin C*] 500 mg PO DAILY 07/25/21 Atorvastatin Calcium [Lipitor*] 20 mg PO BEDTIME 07/25/21 Folic Acid/Vit B Complex and C [Libby-Guillermo Tablet] 0.8 mg PO DAILY 07/25/21 Gabapentin [Neurontin*] 400 mg PO M,W,F 07/25/21 Lactulose 20 gm PO DAILY PRN 07/25/21 Mirtazapine [Remeron] 30 mg PO BEDTIME 07/25/21 Patiromer Calcium Sorbitex [Veltassa] 8.4 gm PO DAILY 07/25/21 Zinc Sulfate [Zinc Sulfate*] 220 mg PO DAILY 07/25/21 Calcium Acetate [Phoslo] 667 mg PO AC #90 capsule 11/07/21 Midodrine HCl [Proamatine*] 5 mg PO EVERY HD PRN #30 tab 11/07/21 Na Bicarb Tab [Sodium Bicarb 325 MG Tab*] 650 mg PO BID #60 tab 11/07/21 Metoprolol Tartrate [Lopressor*] 0.5 tab PO BID 30 Days #30 tab 11/28/21 Insulin 70/30 NPH/Reg Human [Novolin 70/30*] 10 unit SQ AMB AD COREY #1 vial 01/14/22 New Medications: Insulin 70/30 NPH/Reg Human [Novolin 70/30*] 10 unit SQ AMB AD COREY #1 vial Physician Discharge Instructions: -DC IV and DC back to halfway -Follow-up with PCP over 1 to 2 days -Follow-up with nephrology for hemodialysis -Please call Dr. Chan at [phone] if any questions regarding hospital stay -Please call nursing station at [phone] if any nursing or medication questions -Return to the emergency room if symptoms worsen Stop Levemir. Give insulin 70/30 in a.m. Check blood sugars before every meal and nightly for at least 1 week Diet: Renal Activity: Fall precautions Followup: Kirsten Baez MD [Primary Care Provider] - (Call to schedule appointment.) Time spent managing pt's care (in minutes): 35
== END 2022-01-14 18:15 ==
LOC: ER 10:56 → ERHOLD 17:12 → 2ND 17:41
PROVIDERS: ADMIT Hospitalist; ATTEND Hospitalist
DX: E11.649 Type 2 diabetes mellitus with hypoglycemia without coma (principal); E11.22 Type 2 diabetes mellitus with diabetic chronic kidney disease; I13.2 Hypertensive heart and chronic kidney disease with heart failure and with stage 5 chronic kidney disease, or end stage renal disease; I50.30 Unspecified diastolic (congestive) heart failure; N18.6 End stage renal disease; Z99.2 Dependence on renal dialysis; D63.1 Anemia in chronic kidney disease; I95.3 Hypotension of hemodialysis; E87.5 Hyperkalemia; E11.42 Type 2 diabetes mellitus with diabetic polyneuropathy; E11.319 Type 2 diabetes mellitus with unspecified diabetic retinopathy without macular edema; E11.21 Type 2 diabetes mellitus with diabetic nephropathy; N25.0 Renal osteodystrophy; D72.829 Elevated white blood cell count, unspecified; E78.5 Hyperlipidemia, unspecified; K21.9 Gastro-esophageal reflux disease without esophagitis; H54.8 Legal blindness, as defined in USA; E89.0 Postprocedural hypothyroidism; Z79.82 Long term (current) use of aspirin; Z79.02 Long term (current) use of antithrombotics/antiplatelets; Z79.4 Long term (current) use of insulin; Z79.899 Other long term (current) drug therapy; Z90.49 Acquired absence of other specified parts of digestive tract; Z89.511 Acquired absence of right leg below knee; Z86.73 Personal history of transient ischemic attack (TIA), and cerebral infarction without residual deficits; Z85.850 Personal history of malignant neoplasm of thyroid; Z87.891 Personal history of nicotine dependence; Z20.822 Contact with and (suspected) exposure to COVID-19; Z82.49 Family history of ischemic heart disease and other diseases of the circulatory system
CPT/HCPCS: 93005; 87040 ×2; 85025 ×2; 80048; 36415; 83735; 85610; 82947 ×9; 80076; 83605; 83036; 84484; 80053; 84145; 83880; 71045; 90935; 99284; U0003; J1815; J7042; J2405; G0378 ×2